=== PATIENT | male | born 1970 ===

== ENCOUNTER 2020-01-12 23:15 | Emergency (ER) | payer MEDICAID, SELFPAY ==
[2020-01-12 23:22] VITALS: BP 108/61; PULSE 66; RESP 16; TEMP 36.5; O2SAT 98; BMI 24.2
--- NOTE | 2020-01-12 23:57 | ED_ITS ---
HPI - General Adult General Chief complaint: Upper Respiratory Symptoms Stated complaint: SORETHROAT Time Seen by Provider: 01/12/20 23:50 Source: patient Mode of arrival: ambulatory Limitations: no limitations History of Present Illness HPI narrative: 49-year-old male presents with throat pain and difficulty swallowing. Was seen on 01/04/2020 at [facility] and was given a diagnosis of esophageal achalasia. He was advised to follow-up with the surgeon, however he was unable to make an appointment. He presents today because of pain and is asking for IV morphine. He does not report any chest pain or pressure, palpitations, shortness of breath, abdominal pain, abdominal distention, dysuria, hematuria, fevers and chills. Onset (ago): month(s) Radiation: non-radiation Severity: severe and similar to prior episodes Severity scale (1-10): 10 Quality: burning and aching Pain Consistency: constant Relieving factors: none Exacerbating factors: eating Related Data Home Medications Medication Instructions Recorded Confirmed albuterol sulfate 90 mcg/actuation 1 puff INHALATION QID 01/06/20 aerosol inhaler atenolol 25 mg tablet 25 mg PO DAILY 01/06/20 cholecalciferol (vitamin D3) 50 50 mcg PO DAILY 01/06/20 mcg (2,000 unit) capsule clonazepam 1 mg tablet 1 mg PO TID 01/06/20 diphenhydramine HCl 25 mg capsule 25 mg PO BEDTIME 01/06/20 lactulose 20 gram oral packet 20 g PO BID 01/06/20 metoclopramide HCl 10 mg tablet 10 mg PO QIDACHS 01/06/20 omeprazole 20 mg capsule,delayed 20 mg PO DAILY 01/06/20 release oxycodone 5 mg capsule 5 mg PO BID PRN 01/06/20 tamsulosin 0.4 mg capsule 0.4 mg PO DAILY 01/06/20 tizanidine 4 mg capsule 4 mg PO TID PRN 01/06/20 verapamil 40 mg tablet 40 mg PO TID 01/06/20 Previous Rx's Medication Instructions Recorded oxycodone 5 mg PO Q8H PRN #5 tab 01/13/20 Allergies Allergy/AdvReac Type Severity Reaction Status Date / Time trazodone [TRAZODONE] Allergy Severe FACIAL Unverified 12/22/19 15:19 SWELLING, swelling cat dander [CATS] Allergy Intermediate FACIAL Unverified 12/22/19 15:19 ITCHING doxepin [DOXEPIN] Allergy Intermediate WEIGHT Unverified 12/22/19 15:19 GAIN/LEG SWELLING Iodinated Contrast Media Allergy Intermediate ITCHING Unverified 12/22/19 15:19 [IV DYE, IODINE CONTAINING CONTRAST ] acetaminophen [Tylenol] Allergy Unknown stomach Verified 11/24/19 00:00 pain aspirin [ASPIRIN] Allergy Unknown UNKNOWN Unverified 12/22/19 15:19 nitroglycerin [NITROGLYCERIN] Allergy Unknown UNKNOWN Unverified 12/22/19 15:19 tramadol [TRAMADOL] Allergy Unknown UNKNOWN, Unverified 12/22/19 15:19 dry mouth ibuprofen [From MOTRIN] AdvReac Intermediate GI UPSET Unverified 12/22/19 15:19 quetiapine [From SEROQUEL] AdvReac Intermediate FACIAL Unverified 12/22/19 15:19 SWELLING Ibuprofen Allergy Unknown stomach Uncoded 11/24/19 00:00 ache IV contrast Allergy Unknown Uncoded 11/24/19 00:00 Motrin Allergy Unknown stomach Uncoded 11/24/19 00:00 pain Review of Systems Review of Systems: Constitutional: No Weight loss, No Fever, No Chills, No Night Sweats, No Fatigue, No Malaise ENT/Mouth: No Hearing loss, No Ear Pain, No Nasal Congestion, No Sinus Pain, No Hoarseness, No sore throat, No Rhinorrhea, No Swallowing Difficulty Eyes: No Eye Pain, No Swelling, No Redness, No Foreign Body, No Discharge, No Vision Changes Cardiovascular: No Chest Pain, No SOB, No Dyspnea on Exertion, No Orthopnea, No Edema, No Palpitations Respiratory: No Cough, No Sputum, No Wheezing, No Smoke Exposure, No Dyspnea Gastrointestinal: No Nausea, No Vomiting, No Diarrhea, No Constipation, No abdominal Pain, No Hematochezia, No Melena Genitourinary: no irregular bleeding, No Dysuria, No Urinary Frequency, No He maturia, No Urinary Incontinence, No Urgency, No Flank Pain, No Urinary Flow Changes, No Hesitancy Musculoskeletal: No joint pain, No Myalgias, No Joint Swelling Skin: No Skin Lesions, No rash Neuro: No Weakness, No Numbness, No Paresthesias, No Loss of Consciousness, No Dizziness, No Headache Psych: No Anxiety/Panic, No Depression, No SI/HI/AH/VH, No Social Issues, Heme/Lymph: No Bruising, No Bleeding,No Lymphadenopathy Endocrine: No Polyuria, No Polydipsia, No Temperature Intolerance [facility] Past Medical History Attestation statement: The following information was validated with the patient. Medical History (Updated 01/12/20 @ 23:56 by Lawanda Majano NP) Anxiety GERD (gastroesophageal reflux disease) Surgical History H/O umbilical hernia repair History of colonoscopy History of cystoscopy Family History Family History (Updated 01/06/20 @ 08:40 by SUSAN Cherry) Father HTN (hypertension) Diabetes Mother HTN (hypertension) Stroke Alzheimer disease Heart disease Social History Social History Alcohol intake: never Smoking Status: Never smoker Use of substances other than those prescribed or required for medical reasons: No Advance Directives: No Advance Directives Information Provided: No Physical Exam Vital Signs and I&O and Narrative: Vital Signs and I&O: Vital Signs Temp 97.7 F 01/12/20 23:22 Pulse 66 01/12/20 23:22 Resp 16 01/12/20 23:22 BP 108/61 01/12/20 23:22 Pulse Ox 98 01/12/20 23:22 Intake & Output 01/12/20 01/12/20 01/13/20 06:59 18:59 06:59 Weight 66.075 kg Body Mass Index 24.2 Appearance: Alert. Oriented X3. No acute distress. Eyes: Pupils equal, round and reactive to light. ENT: Pharynx normal. Neck: Normal inspection. Neck supple. CVS: Normal heart rate and rhythm. Pulses normal. Respiratory: No respiratory distress. Breath sounds normal. Abdomen: Soft and nontender. Skin: Skin warm and dry. Normal skin color. Normal skin turgor. Extremities: No lower extremity edema. No lower extremity edema. Neuro: Oriented X 3. No motor deficit. No sensory deficit. Course Course Course Narrative: 49-year-old male with history of esophageal achalasia presents with throat pain and difficulty swallowing. States that he ran out of his medication and cannot eat. He is asking for IV morphine. After investigation, patient states that he did not call the surgeon for an appointment, and that he ran out of his pain medications earlier than expected. We did offer p.o. oxycodone at this time, which he was able to swallow with a cup of water Without difficulty. patient did not cough, or have any adventitious lung sounds after drinking and taking medications We will discharge home with 7 tablets of oxycodone, he was strongly encouraged to follow-up with his surgeon, surgeon's name, phone number, and address was discussed with him by this BLOOD OR BLOOD BANK TECHNICIAN and RN. Upon discharge to home he states that he would like to torey ales and a sandwich, which the RN did give him. Patient verbalized understanding of and agrees to plan of care to discharge. Medical Decision Making Medical Records Medical records reviewed: Yes I reviewed the patient's medical records. Discharge Plan Discharge Clinical Impression: Achalasia of esophagus Patient Disposition: Home, Self-Care Instructions: Chronic Dysphagia (DC) Additional Instructions: please follow-up with your surgeon as suggested by [facility] on December 08 2019.y her name is Dr. Antonella Krause medical office [address] [facility] thoracic surgery [place] [address] telephone #[phone]. Thank you for choosing this emergency department for evaluation. Please follow-up with primary care physician as needed. Return to the emergency department for any new, concerning, or worsening symptoms. Prescriptions: New oxycodone 5 mg tablet 5 mg PO Q8H PRN (Reason: pain) Qty: 5 RF: 0 Referrals: Antonella Krause MD [Physician] - 2 days ( please call and make an appointment.) Interventions: ED Discharge Assessment Last Done: 01/13/20 00:05 Discharge Date/Time: 01/13/20 00:24
[2020-01-13] MEDS: oxyCODONE HCl Immed Release 5 MG TABLET PO (00:01)
--- NOTE | 2020-01-13 00:24 | PC.NURSE ---
pt given torey [place] and sandwich prior to d/c tolerating po well. pt also swallowing po meds as ordered with no issues prior to d/c
== END 2020-01-13 00:24 | disposition home or self-care (01) ==
PROVIDERS: Emergency Provider Emergency Medicine; PCP Internal Medicine
DX: K22.0 Achalasia of cardia (principal); K21.9 Gastro-esophageal reflux disease without esophagitis; Z79.899 Other long term (current) drug therapy
CPT/HCPCS: 99283; 99284

== ENCOUNTER 2020-01-19 04:51 | Emergency (ER) | payer MEDICAID, SELFPAY ==
[2020-01-19 05:03] VITALS: BP 115/72; PULSE 61; RESP 18; TEMP 36.8; O2SAT 100; BMI 52.8
--- NOTE | 2020-01-19 05:39 | XR_ITS ---
EXAMINATION: XR CHEST CLINICAL INFORMATION: Chest pain, cough COMPARISON: 12/22/2019 TECHNIQUE: Frontal view of the chest was obtained. FINDINGS: Lung volumes are symmetric. No focal consolidation is seen. No evidence of pneumothorax, pleural effusion, or pulmonary edema. The cardiomediastinal contour is unremarkable. No acute osseous findings are seen. IMPRESSION: No acute cardiopulmonary findings.
--- NOTE | 2020-01-19 05:39 | ECG_ITS ---
Test Reason : CHEST PAIN Blood Pressure : / mmHG Vent. Rate : 055 BPM Atrial Rate : 055 BPM P-R Int : 128 ms QRS Dur : 092 ms QT Int : 428 ms P-R-T Axes : 020 015 020 degrees QTc Int : 409 ms Sinus bradycardia Possible Early repolarization Nonspecific ST abnormality Abnormal ECG When compared with ECG of 11-NOV-2019 16:40, T wave amplitude has increased in Anterior leads Nonspecific ST abnormality is new Referred By: Meri Hoyos Electronically Signed By:ZOË WALTERS MD
--- NOTE | 2020-01-19 05:41 | ED.GENADULT ---
HPI - General Adult General Chief complaint: Nausea/Vomiting/Diarrhea Stated complaint: multiple complaints Time Seen by Provider: 01/19/20 05:33 Source: patient Mode of arrival: EMS Limitations: no limitations History of Present Illness HPI narrative: patient comes to emergency room complaining of 2 days of nausea, vomiting, diarrhea, dizziness, chest pain, anxiety. Patient states 2 days ago he went to [place] to visit his daughter, she had an upper respiratory infection and was coughing quite a bit. Patient states that he has been coughing as well. MD complaint: Multiple complaints Onset (ago): day(s) Related Data Home Medications Medication Instructions Recorded Confirmed albuterol sulfate 90 mcg/actuation 1 puff INHALATION QID 01/06/20 aerosol inhaler atenolol 25 mg tablet 25 mg PO DAILY 01/06/20 cholecalciferol (vitamin D3) 50 50 mcg PO DAILY 01/06/20 mcg (2,000 unit) capsule clonazepam 1 mg tablet 1 mg PO TID 01/06/20 diphenhydramine HCl 25 mg capsule 25 mg PO BEDTIME 01/06/20 lactulose 20 gram oral packet 20 g PO BID 01/06/20 metoclopramide HCl 10 mg tablet 10 mg PO QIDACHS 01/06/20 omeprazole 20 mg capsule,delayed 20 mg PO DAILY 01/06/20 release oxycodone 5 mg capsule 5 mg PO BID PRN 01/06/20 tamsulosin 0.4 mg capsule 0.4 mg PO DAILY 01/06/20 tizanidine 4 mg capsule 4 mg PO TID PRN 01/06/20 verapamil 40 mg tablet 40 mg PO TID 01/06/20 Previous Rx's Medication Instructions Recorded oxycodone 5 mg PO Q8H PRN #5 tab 01/13/20 Allergies Allergy/AdvReac Type Severity Reaction Status Date / Time trazodone [TRAZODONE] Allergy Severe FACIAL Unverified 12/22/19 15:19 SWELLING, swelling cat dander [CATS] Allergy Intermediate FACIAL Unverified 12/22/19 15:19 ITCHING doxepin [DOXEPIN] Allergy Intermediate WEIGHT Unverified 12/22/19 15:19 GAIN/LEG SWELLING Iodinated Contrast Media Allergy Intermediate ITCHING Unverified 12/22/19 15:19 [IV DYE, IODINE CONTAINING CONTRAST ] acetaminophen [Tylenol] Allergy Unknown stomach Verified 11/24/19 00:00 pain aspirin [ASPIRIN] Allergy Unknown UNKNOWN Unverified 12/22/19 15:19 nitroglycerin [NITROGLYCERIN] Allergy Unknown UNKNOWN Unverified 12/22/19 15:19 tramadol [TRAMADOL] Allergy Unknown UNKNOWN, Unverified 12/22/19 15:19 dry mouth ibuprofen [From MOTRIN] AdvReac Intermediate GI UPSET Unverified 12/22/19 15:19 quetiapine [From SEROQUEL] AdvReac Intermediate FACIAL Unverified 12/22/19 15:19 SWELLING Ibuprofen Allergy Unknown stomach Uncoded 11/24/19 00:00 ache IV contrast Allergy Unknown Uncoded 11/24/19 00:00 Motrin Allergy Unknown stomach Uncoded 11/24/19 00:00 pain Review of Systems Review of Systems: Constitutional : complaining of fatigue, malaise ENT/Mouth : No Hearing loss, No Ear Pain, No Nasal Congestion, No Sinus Pain, No Hoarseness, No sore throat, No Rhinorrhea, No Swallowing Difficulty Eyes: No Eye Pain, No Swelling, No Redness, No Foreign Body, No Discharge, No Vision Changes Cardiovascular : No Chest Pain, No SOB, No Dyspnea on Exertion, No Orthopnea, No Edema, No Palpitations Respiratory : coughing for 2 days, No Sputum, No Wheezing, No Smoke Exposure, No Dyspnea Gastrointestinal : complaining of nausea, vomiting, diarrhea, diffuse abdominal pain Genitourinary : no irregular bleeding, No Dysuria, No Urinary Frequency, No Hematuria, No Urinary Incontinence, No Urgency, No Flank Pain, No Urinary Flow Changes, No Hesitancy Musculoskeletal : No joint pain, generalized myalgias, No Joint Swelling Skin : No Skin Lesions, No rash Neuro : No Weakness, No Numbness, No Paresthesias, No Loss of Consciousness, No Dizziness, No Headache Psych : No Anxiety/Panic, No Depression, No SI/HI/AH/VH, No Social Issues, Heme/Lymph: No Bruising, No Bleeding,No Lymphadenopathy Endocrine : No Polyuria, No Polydipsia, No Temperature Intolerance PMF Past Medical History Medical History Anxiety GERD (gastroesophageal reflux disease) Surgical History H/O umbilical hernia repair History of colonoscopy History of cystoscopy Family History Family History Father HTN (hypertension) Diabetes Mother HTN (hypertension) Stroke Alzheimer disease Heart disease Social History Social History Alcohol intake: never Smoking Status: Smoker, status unknown Use of substances other than those prescribed or required for medical reasons: No Advance Directives: No Advance Directives Information Provided: No Physical Exam Vital Signs: Vital Signs: Vital Signs Temp Pulse Resp BP Pulse Ox 01/19/20 06:57 60 18 116/58 L 100 01/19/20 05:03 98.2 F 61 18 115/72 100 Body Mass Index 52.8 Appearance: Alert. Oriented X3. No acute distress. Eyes: Pupils equal, round and reactive to light. ENT: Pharynx normal. Neck: Normal inspection. Neck supple. No lymph nodes noted. No crepitus CVS: Normal heart rate and rhythm. Pulses normal. Normal S1 and S2 Respiratory: No respiratory distress. Breath sounds normal. No Wheezing. No rales Abdomen: Soft and nontender. No rigidity. No distention. good BS x4 Skin: Skin warm and dry. Normal skin color. Normal skin turgor. Extremities: No lower extremity edema. No lower extremity edema. No Lacerations. No Rash Neuro: Oriented X 3. No motor deficit. No sensory deficit. Moving all extermities. No slurred speech. Course Reevaluation(s) Reevaluation #1: Patient complaining of generalized pain. Patient was offered ibuprofen, patient was offered Tylenol, declined, for abdominal pain patient was offered a GI cocktail, patient declined, patient states that the only thing that helps is IV morphine and IV Ativan. Patient was offered p.o. Ativan, patient got upset because it is not IV. I discussed the labs with the patient, he was tested for COVID-19, all negative. Medical Decision Making MDM Narrative Medical decision making narrative: Patient likely has a viral illness, patient tested negative for COVID. Patient Instructed to follow-up with his primary care physician. Lab Data Result diagrams: 01/19/20 06:02 01/19/20 06:02 Labs: Lab Results 01/19/20 01/19/20 01/19/20 Range/Units 06:02 06:02 06:02 WBC 5.0 (4.8-10.8) X10*3/uL RBC 3.90 L (4.60-5.80) X10*6/uL Hgb 12.2 L (14.0-18.0) g/dl Hct 37.5 L (42-52) % MCV 96.2 (80-98) fL MCH 31.3 (27.0-33.0) pg MCHC 32.5 (31.0-36.0) g/dl RDW 12.6 (11.0-16.0) % Plt Count 194 (160-400) X10*3/uL MPV 10.4 (9.4-12.4) fL Immature Gran % (Auto) 0.0 (0.0-0.4) % Neut % (Auto) 61.2 (45-73) % Lymph % (Auto) 29.0 (20-40) % [place] % (Auto) 6.8 (2-11) % Eos % (Auto) 2.6 (0-4) % Baso % (Auto) 0.4 (0-2) % Lymph # (Auto) 1.4 (1.2-4.9) X10*3/uL [place] # (Auto) 0.3 (0.1-1.2) X10*3/uL Eos # (Auto) 0.1 (0.0-0.4) X10*3/uL Baso # (Auto) 0.0 (0.0-0.2) X10*3/uL Abs Immat Gran (auto) 0.00 (0.00-0.03) X10*3/uL Absolute Neuts (auto) 3.0 (2.0-8.3) X10*3/uL Absolute Nucleated RBC 0.000 (0.0-0.012) X10*3/uL Nucleated RBC % (auto) 0.0 (0.0-0.2) /100WBC Sodium 140 (135-145) mmol/L Potassium 3.8 (3.3-5.1) mmol/l Chloride 103 (96-108) mmol/L Carbon Dioxide 31 H (22-29) mmol/L Anion Gap 10 L (12-20) BUN 6 L (9-16) mg/dL Creatinine 0.79 (0.5-1.4) mg/dL Estim Creat Clear Calc 147.8 Estimated GFR > 60 Random Glucose 101 (60-115) mg/dL Calcium 8.9 (8.4-10.2) mg/dL Total Bilirubin 0.4 (0.0-1.0) mg/dL Direct Bilirubin < 0.2 (0.0-0.5) mg/dL AST 18 (5-37) U/L ALT 13 (0-40) U/L Alkaline Phosphatase 76 (39-117) U/L Troponin I High Sens (<3.5-35.0) ng/L Total Protein 6.6 (6.5-8.0) g/dL Albumin 4.1 (3.5-5.0) g/dL Lipase 4 L (8-78) U/L Coronavirus (PCR) NEGATIVE (Negative) 01/19/20 Range/Units 06:02 WBC (4.8-10.8) X10*3/uL RBC (4.60-5.80) X10*6/uL Hgb (14.0-18.0) g/dl Hct (42-52) % MCV (80-98) fL MCH (27.0-33.0) pg MCHC (31.0-36.0) g/dl RDW (11.0-16.0) % Plt Count (160-400) X10*3/uL MPV (9.4-12.4) fL Immature Gran % (Auto) (0.0-0.4) % Neut % (Auto) (45-73) % Lymph % (Auto) (20-40) % [place] % (Auto) (2-11) % Eos % (Auto) (0-4) % Baso % (Auto) (0-2) % Lymph # (Auto) (1.2-4.9) X10*3/uL [place] # (Auto) (0.1-1.2) X10*3/uL Eos # (Auto) (0.0-0.4) X10*3/uL Baso # (Auto) (0.0-0.2) X10*3/uL Abs Immat Gran (auto) (0.00-0.03) X10*3/uL Absolute Neuts (auto) (2.0-8.3) X10*3/uL Absolute Nucleated RBC (0.0-0.012) X10*3/uL Nucleated RBC % (auto) (0.0-0.2) /100WBC Sodium (135-145) mmol/L Potassium (3.3-5.1) mmol/l Chloride (96-108) mmol/L Carbon Dioxide (22-29) mmol/L Anion Gap (12-20) BUN (9-16) mg/dL Creatinine (0.5-1.4) mg/dL Estim Creat Clear Calc Estimated GFR Random Glucose (60-115) mg/dL Calcium (8.4-10.2) mg/dL Total Bilirubin (0.0-1.0) mg/dL Direct Bilirubin (0.0-0.5) mg/dL AST (5-37) U/L ALT (0-40) U/L Alkaline Phosphatase (39-117) U/L Troponin I High Sens < 3.5 (<3.5-35.0) ng/L Total Protein (6.5-8.0) g/dL Albumin (3.5-5.0) g/dL Lipase (8-78) U/L Coronavirus (PCR) (Negative) ECG Data Attestation: I personally reviewed and interpreted this ECG as follows: ( sinus rhythm, bradycardia, heart rate 85 D5, nonspecific [address] elevations V4 through V6, nonspecific T-wave inversion lead III) Discharge Plan Discharge Clinical Impression: Viral illness Patient Disposition: Home, Self-Care Instructions: Viral Syndrome (ED) Additional Instructions: Please follow-up with your primary care physician tomorrow. If you have any worsening or new symptoms, please return to the emergency room or call 911 Prescriptions: No Action oxycodone 5 mg tablet 5 mg PO Q8H PRN (Reason: pain) Qty: 5 RF: 0
[2020-01-19] MEDS: 0.9 % Sodium Chloride 1,000 ML 999 ML IVCONT (06:08)
[2020-01-19 06:09] LABS: MANUAL DIFF FLAG NO
[2020-01-19 06:11] LABS: Basophils Percent Auto 0.4 % (0-2); Eosinophils Absolute Auto 0.1 X10*3/uL (0.0-0.4); Eosinophils Percent Auto 2.6 % (0-4); Hematocrit 37.5 % (42-52); Hemoglobin 12.2 g/dl (14.0-18.0); Lymphocytes Absolute Auto 1.4 X10*3/uL (1.2-4.9); Mean Corpuscular HGB Conc 32.5 g/dl (31.0-36.0); Mean Corpuscular Hemoglobin 31.3 pg (27.0-33.0); Mean Corpuscular Volume 96.2 fL (80-98); Mean Platelet Volume 10.4 fL (9.4-12.4); Monocytes Absolute Auto 0.3 X10*3/uL (0.1-1.2); Monocytes Percent Auto 6.8 % (2-11); Neutrophils Percent Auto 61.2 % (45-73); Platelet Count 194 X10*3/uL (160-400); Red Cell Distribution Width 12.6 % (11.0-16.0)
[2020-01-19 06:42] LABS: Alanine Aminotransferase 13 U/L (0-40); Albumin Level 4.1 g/dL (3.5-5.0); Alkaline Phosphatase 76 U/L (39-117); Anion Gap 10 (12-20); Aspartate Amino Transferase 18 U/L (5-37); Bilirubin Direct < 0.2 mg/dL (0.0-0.5); Bilirubin Total 0.4 mg/dL (0.0-1.0); Blood Urea Nitrogen 6 mg/dL (9-16); Calcium 8.9 mg/dL (8.4-10.2); Carbon Dioxide 31 mmol/L (22-29); Chloride 103 mmol/L (96-108); Creatinine Clr Calc Pharmacy 147.8; Estimated Glomerular Filt Rate > 60; Glucose Random 101 mg/dL (60-115); Lipase 4 U/L (8-78); Potassium 3.8 mmol/l (3.3-5.1); Sodium 140 mmol/L (135-145); Total Protein 6.6 g/dL (6.5-8.0)
[2020-01-19 06:48] LABS: Troponin-I High Sensitivity < 3.5 ng/L (<3.5-35.0)
[2020-01-19 06:57] VITALS: BP 116/58; PULSE 60; RESP 18; O2SAT 100
[2020-01-19 07:12] LABS: SARS COV2 PCR INHOUSE NEGATIVE (Negative)
[2020-01-19] MEDS: LORazepam 1 MG TABLET PO (07:32)
== END 2020-01-19 08:00 | disposition home or self-care (01) ==
PROVIDERS: Emergency Provider Emergency Medicine
DX: B34.9 Viral infection, unspecified (principal); Z20.828 Contact with and (suspected) exposure to other viral communicable diseases
CPT/HCPCS: 36415; 71045; 80048; 80076; 83690; 84484; 85025; 87635; 93005; 96360; 99284

== ENCOUNTER → 2020-02-02 14:56 | Outpatient (BNVA) | payer MEDICAID, SELFPAY | PROVIDERS: PCP Internal Medicine; Referring Provider Internal Medicine; Visit Provider Urology | DX: R39.198 Other difficulties with micturition (principal); M24.9 Joint derangement, unspecified | CPT/HCPCS: 51798; 81002; 99212 ==

== ENCOUNTER 2020-02-14 12:31 | Emergency (ER) | payer MEDICAID, SELFPAY ==
[2020-02-14 12:36] VITALS: BP 155/103; PULSE 99; RESP 16; TEMP 36.6; O2SAT 98; BMI 22.4
--- NOTE | 2020-02-14 12:50 | ED_ITS ---
HPI - Chest Pain General Chief Complaint: Chest Pain Stated Complaint: CHEST PAIN Time Seen by Provider: 02/14/20 12:50 Source: patient Mode of arrival: ambulatory Limitations: no limitations History of Present Illness HPI narrative: chest pain for 2 days and weight loss. Patient states that he is nauseated all the time and vomiting the last 2 days MD complaint: chest pain Onset (ago): day(s) Pain location: left chest Quality: tightness Associated symptoms: nausea and vomiting Related Data Home Medications Medication Instructions Recorded Confirmed albuterol sulfate 90 mcg/actuation 1 puff INHALATION QID 01/06/20 02/02/20 aerosol inhaler atenolol 25 mg tablet 25 mg PO DAILY 01/06/20 02/02/20 cholecalciferol (vitamin D3) 50 50 mcg PO DAILY 01/06/20 02/02/20 mcg (2,000 unit) capsule clonazepam 1 mg tablet 1 mg PO TID 01/06/20 02/02/20 diphenhydramine HCl 25 mg capsule 25 mg PO BEDTIME 01/06/20 02/02/20 metoclopramide HCl 10 mg tablet 10 mg PO QIDACHS 01/06/20 02/02/20 omeprazole 20 mg capsule,delayed 20 mg PO DAILY 01/06/20 02/02/20 release oxycodone 5 mg capsule 5 mg PO BID PRN 01/06/20 02/02/20 tamsulosin 0.4 mg capsule 0.4 mg PO DAILY 01/06/20 02/02/20 tizanidine 4 mg capsule 4 mg PO TID PRN 01/06/20 02/02/20 verapamil 40 mg tablet 40 mg PO TID 01/06/20 02/02/20 Previous Rx's Medication Instructions Recorded oxycodone 5 mg PO Q8H PRN #5 tab 01/13/20 meloxicam 15 mg tablet 15 mg PO DAILY 30 Days #30 tab 02/02/20 lactulose 20 gram/30 mL oral 20 g PO DAILY 30 Days #900 ml 02/10/20 solution simethicone 125 mg chewable tablet 125 mg PO QID PRN 30 Days #120 tab 02/10/20 Allergies Allergy/AdvReac Type Severity Reaction Status Date / Time trazodone [TRAZODONE] Allergy Severe FACIAL Unverified 12/22/19 15:19 SWELLING, swelling cat dander [CATS] Allergy Intermediate FACIAL Unverified 12/22/19 15:19 ITCHING doxepin [DOXEPIN] Allergy Intermediate WEIGHT Unverified 12/22/19 15:19 GAIN/LEG SWELLING Iodinated Contrast Media Allergy Intermediate ITCHING Unverified 12/22/19 15:19 [IV DYE, IODINE CONTAINING CONTRAST ] acetaminophen [Tylenol] Allergy Unknown stomach Verified 11/24/19 00:00 pain aspirin [ASPIRIN] Allergy Unknown UNKNOWN Unverified 12/22/19 15:19 nitroglycerin [NITROGLYCERIN] Allergy Unknown UNKNOWN Unverified 12/22/19 15:19 tramadol [TRAMADOL] Allergy Unknown UNKNOWN, Unverified 12/22/19 15:19 dry mouth ibuprofen [From MOTRIN] AdvReac Intermediate GI UPSET Unverified 12/22/19 15:19 quetiapine [From SEROQUEL] AdvReac Intermediate FACIAL Unverified 12/22/19 15:19 SWELLING Ibuprofen Allergy Unknown stomach Uncoded 11/24/19 00:00 ache IV contrast Allergy Unknown Uncoded 11/24/19 00:00 Motrin Allergy Unknown stomach Uncoded 11/24/19 00:00 pain Review of Systems Constitutional: Constitutional: Reports no additional constitutional complaints Eyes: Eyes: Reports no additional eye complaints ENT: Denies dizziness Cardiovascular: Cardiovascular: Reports no additional cardiovascular complaints Respiratory: Respiratory: Reports as per HPI Gastrointestinal: Gastrointestinal: Reports no additional gastrointestinal complaints Musculoskeletal: Musculoskeletal: Reports no additional musculoskeletal complaints Integumentary/Breasts: Skin/Breast: Denies rash Neurologic: Reports system reviewed and no additional complaints, except as documented, Denies dizziness and Denies Sensory deficit (Neuro) Psychiatric: Psychiatric: Denies anxiety PMFSH Past Medical History Medical History Anxiety GERD (gastroesophageal reflux disease) Surgical History H/O umbilical hernia repair History of colonoscopy History of cystoscopy Family History Family History Father HTN (hypertension) Diabetes Mother HTN (hypertension) Stroke Alzheimer disease Heart disease Social History Social History Alcohol intake: current Alcohol intake frequency: 0-2 drinks per day Smoking Status: Smoker, status unknown Smoked in Last 30 Days: No Use of substances other than those prescribed or required for medical reasons: No Advance Directives: No Advance Directives Information Provided: No Physical Exam Vital Signs: Vital Signs: Last Vital Signs Temp 97.9 F 02/14/20 12:36 Pulse 99 02/14/20 12:36 Resp 16 02/14/20 12:36 BP 155/103 H 02/14/20 12:36 Pulse Ox 98 02/14/20 12:36 Body Mass Index 22.4 Const: Other: anxious General: healthy appearing Nutritional Appearance: average body habitus Orientation/consciousness: oriented to person and patient oriented x3 Limitations: no limitations HENMT: Head: Yes normal to inspection Ears: external ears normal General nose exam: Normal external nose present Mouth: Normal oral and palatal mucosa present and oropharynx normal Throat: Yes posterior oropharynx normal Eyes: General: appearance normal, both eyes and all related structures Neck: Other: supple Neck: Yes normal visual inspection Chest: Chest palpation & inspection: normal inspection of the chest Resp: Auscultation: clear to auscultation bilaterally Cardio: Jugular venous distension: no JVD Rate: regular rate Rhythm: regular rhythm Heart sounds: S1 normal heart sound present and S2 normal heart sound present GI: Inspection: Yes normal to inspection Palpation (GI): Soft to palpation, nontender and No hepatosplenomegaly present Auscultation: normal bowel sounds : General: Yes no CVA tenderness Back/Spine/Pelvis: Back: no CVA tenderness Skin: General skin exam: no rashes or lesions noted Neuro: General: oriented to person and patient oriented x3 Cranial nerves: Yes CN's II-XII intact bilaterally Motor exam (neuro): 5/5 motor strength present throughout Sensory Exam: No Sensory deficit (Neuro) Extrem: General: Yes normal to inspection Psych: Appearance: grossly normal MDM - Chest Pain MDM Narrative Medical decision making narrative: Patient with multiple complaints and atypical chest pain will dc home Differential Diagnosis Differential diagnosis: Likely atypical chest pain and chest pain Lab Data Result diagrams: 02/14/20 13:16 02/14/20 13:16 Labs: Lab Results 02/14/20 02/14/20 02/14/20 Range/Units 13:16 13:16 13:16 WBC 8.3 (4.8-10.8) X10*3/uL RBC 4.80 D (4.60-5.80) X10*6/uL Hgb 14.9 D (14.0-18.0) g/dl Hct 43.7 (42-52) % MCV 91.0 (80-98) fL MCH 31.0 (27.0-33.0) pg MCHC 34.1 (31.0-36.0) g/dl RDW 12.7 (11.0-16.0) % Plt Count 251 D (160-400) X10*3/uL MPV 9.3 L (9.4-12.4) fL Immature Gran % (Auto) 0.4 (0.0-0.4) % Neut % (Auto) 67.6 (45-73) % Lymph % (Auto) 27.9 (20-40) % [place] % (Auto) 3.5 (2-11) % Eos % (Auto) 0.2 (0-4) % Baso % (Auto) 0.4 (0-2) % Lymph # (Auto) 2.3 (1.2-4.9) X10*3/uL [place] # (Auto) 0.3 (0.1-1.2) X10*3/uL Eos # (Auto) 0.0 (0.0-0.4) X10*3/uL Baso # (Auto) 0.0 (0.0-0.2) X10*3/uL Abs Immat Gran (auto) 0.03 (0.00-0.03) X10*3/uL Absolute Neuts (auto) 5.6 (2.0-8.3) X10*3/uL Absolute Nucleated RBC 0.000 (0.0-0.012) X10*3/uL Nucleated RBC % (auto) 0.0 (0.0-0.2) /100WBC Sodium 140 (135-145) mmol/L Potassium 3.8 (3.3-5.1) mmol/l Chloride 99 (96-108) mmol/L Carbon Dioxide 29 (22-29) mmol/L Anion Gap 16 (12-20) BUN 5 L (9-16) mg/dL Creatinine 0.77 (0.5-1.4) mg/dL Estim Creat Clear Calc 101.1 Estimated GFR > 60 Random Glucose 112 (60-115) mg/dL Calcium 9.5 D (8.4-10.2) mg/dL Troponin I High Sens < 3.5 (<3.5-35.0) ng/L ECG Data ECG #1: Attestation: I personally reviewed and interpreted this ECG as follows: Interpretation: sinus rate 100, no st or twave changes Discharge Plan Discharge Clinical Impression: Atypical chest pain Patient Disposition: Home, Self-Care Instructions: Chest Pain (ED) Prescriptions: No Action lactulose 20 gram/30 mL solution 20 g PO DAILY 30 Days Qty: 900 RF: 3 simethicone [Gas Relief (simethicone)] 125 mg tablet,chewable 125 mg PO QID PRN (Reason: abdominal distention, gas) 30 Days Qty: 120 RF: 3 oxycodone 5 mg tablet 5 mg PO Q8H PRN (Reason: pain) Qty: 5 RF: 0 meloxicam [Mobic] 15 mg tablet 15 mg PO DAILY 30 Days Qty: 30 RF: 0 cholecalciferol (vitamin D3) [Vitamin D3] 50 mcg (2,000 unit) capsule 50 mcg PO DAILY RF: 0 tizanidine 4 mg capsule 4 mg PO TID PRNRF: 0 albuterol sulfate [ProAir HFA] 90 mcg/actuation HFA aerosol inhaler 1 puff inhalation QID RF: 0 oxycodone 5 mg capsule 5 mg PO BID PRNRF: 0 clonazepam [Klonopin] 1 mg tablet 1 mg PO TID RF: 0 diphenhydramine HCl [Banophen] 25 mg capsule 25 mg PO BEDTIME RF: 0 metoclopramide HCl 10 mg tablet 10 mg PO QIDACHS RF: 0 omeprazole 20 mg capsule,delayed release(DR/EC) 20 mg PO DAILY RF: 0 verapamil 40 mg tablet 40 mg PO TID RF: 0 atenolol 25 mg tablet 25 mg PO DAILY RF: 0 tamsulosin 0.4 mg capsule 0.4 mg PO DAILY RF: 0 Referrals: Patrick Ly MD [Primary Care Provider] - 2 days
--- NOTE | 2020-02-14 13:09 | ECG_ITS ---
Test Reason : CHEST PAIN Blood Pressure : / mmHG Vent. Rate : 103 BPM Atrial Rate : 103 BPM P-R Int : 126 ms QRS Dur : 074 ms QT Int : 334 ms P-R-T Axes : 031 021 052 degrees QTc Int : 437 ms Sinus tachycardia Otherwise normal ECG When compared with ECG of 19-JAN-2020 05:53, Vent. rate has increased BY 48 BPM Referred By: Keyshawn Aragon Electronically Signed By:ZOË WALTERS MD
--- NOTE | 2020-02-14 13:10 | XR_ITS ---
EXAMINATION: XR CHEST CLINICAL INFORMATION: Chest pain and weight loss. COMPARISON: 01/19/2020 chest radiographs. TECHNIQUE: 2 views of the chest were obtained. FINDINGS: No significant abnormality is noted involving the heart, lungs, mediastinum, bony thorax or soft tissues. There is no healed right posterior rib fracture without significant change. XR/XR chest 2V IMPRESSION: No acute cardiopulmonary process.
[2020-02-14 13:19] LABS: MANUAL DIFF FLAG NO
[2020-02-14] MEDS: ondansetron HCL 4 MG/2 ML VIAL IVPUSH (13:19)
[2020-02-14 13:23] LABS: Basophils Percent Auto 0.4 % (0-2); Eosinophils Percent Auto 0.2 % (0-4); Hematocrit 43.7 % (42-52); Hemoglobin 14.9 g/dl (14.0-18.0); Imm Gran Abs Auto 0.03 X10*3/uL (0.00-0.03); Imm Gran Pct Auto 0.4 % (0.0-0.4); Lymphocytes Absolute Auto 2.3 X10*3/uL (1.2-4.9); Lymphocytes Percent Auto 27.9 % (20-40); Mean Corpuscular HGB Conc 34.1 g/dl (31.0-36.0); Mean Platelet Volume 9.3 fL (9.4-12.4); Monocytes Absolute Auto 0.3 X10*3/uL (0.1-1.2); Monocytes Percent Auto 3.5 % (2-11); Neutrophils Absolute Auto 5.6 X10*3/uL (2.0-8.3); Neutrophils Percent Auto 67.6 % (45-73); Platelet Count 251 X10*3/uL (160-400); Red Cell Distribution Width 12.7 % (11.0-16.0); White Blood Count 8.3 X10*3/uL (4.8-10.8)
[2020-02-14 13:52] LABS: Anion Gap 16 (12-20); Blood Urea Nitrogen 5 mg/dL (9-16); Calcium 9.5 mg/dL (8.4-10.2); Carbon Dioxide 29 mmol/L (22-29); Chloride 99 mmol/L (96-108); Creatinine Clr Calc Pharmacy 101.1; Estimated Glomerular Filt Rate > 60; Glucose Random 112 mg/dL (60-115); Potassium 3.8 mmol/l (3.3-5.1); Sodium 140 mmol/L (135-145)
[2020-02-14] MEDS: 0.9 % Sodium Chloride 1,000 ML 999 ML IVCONT (13:52)
[2020-02-14 14:00] LABS: Troponin-I High Sensitivity < 3.5 ng/L (<3.5-35.0)
--- NOTE | 2020-02-14 15:44 | PC.NURSE ---
Pt called this nurse to his room. Pt stated he was not staying and asked for his IV to be taken out. This nurse instructed pt that we needed to leave the IV in and that I would ask the provider to come speak with him. pt became agitated and ripped IV out of his arm. Bandage Applied. Pt stated he can't stay any longer and walked out of ED.
== END 2020-02-14 16:46 | disposition home or self-care (01) ==
PROVIDERS: Emergency Provider Emergency Medicine; PCP Internal Medicine
DX: R07.9 Chest pain, unspecified (principal); R11.2 Nausea with vomiting, unspecified; Z79.899 Other long term (current) drug therapy
CPT/HCPCS: 36415; 71046; 80048; 84484; 85025; 93005; 96361; 96374; 99284; J2405

== ENCOUNTER 2020-02-14 20:46 | Inpatient (IN) | payer MEDICAID, OTHER, SELFPAY ==
[2020-02-14 20:48] VITALS: BP 149/84; BP 149/93; PULSE 113; PULSE 98; RESP 20; TEMP 37.6; O2SAT 100; O2SAT 99; BMI 23.1
--- NOTE | 2020-02-14 20:54 | ECG_ITS ---
Test Reason : CHEST PAIN Blood Pressure : / mmHG Vent. Rate : 087 BPM Atrial Rate : 087 BPM P-R Int : 112 ms QRS Dur : 076 ms QT Int : 374 ms P-R-T Axes : 008 010 035 degrees QTc Int : 450 ms Normal sinus rhythm Minimal voltage criteria for LVH, may be normal variant Borderline ECG When compared with ECG of 14-FEB-2020 12:39, No significant change was found Referred By: Generic ED Physician Electronically Signed By:ZOË WALTERS MD
--- NOTE | 2020-02-14 21:00 | XR_ITS ---
EXAMINATION: XR CHEST CLINICAL INFORMATION: Chest pain COMPARISON: Chest radiograph earlier today at 1:40 PM TECHNIQUE: Frontal view of the chest was obtained. FINDINGS: No significant abnormality is noted involving the heart, lungs, mediastinum, bony thorax or soft tissues. No interval change from the study earlier today. XR/XR chest 1V IMPRESSION: Unremarkable examination.
--- NOTE | 2020-02-14 21:11 | PC.NURSE ---
section [address] Hoyos due to patient leaving AMA earlier today and active threats to slit throat with a knife.
[2020-02-14] MEDS: LORazepam 2 MG/ML VIAL IV (21:14)
[2020-02-14] MEDS: ondansetron HCL 4 MG/2 ML VIAL IVPUSH (21:14)
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
[2020-02-14 21:21] LABS: MANUAL DIFF FLAG NO
[2020-02-14 21:22] VITALS: RESP 15
[2020-02-14] MEDS: Morphine Sulfate 2 MG/ML CARTRIDGE 1 MG IVPUSH (21:22)
[2020-02-14 21:23] LABS: Basophils Percent Auto 0.2 % (0-2); Hematocrit 43.9 % (42-52); Hemoglobin 14.9 g/dl (14.0-18.0); Imm Gran Abs Auto 0.04 X10*3/uL (0.00-0.03); Imm Gran Pct Auto 0.3 % (0.0-0.4); Lymphocytes Absolute Auto 2.3 X10*3/uL (1.2-4.9); Lymphocytes Percent Auto 18.8 % (20-40); Mean Corpuscular HGB Conc 33.9 g/dl (31.0-36.0); Mean Corpuscular Hemoglobin 30.8 pg (27.0-33.0); Mean Corpuscular Volume 90.7 fL (80-98); Mean Platelet Volume 9.3 fL (9.4-12.4); Monocytes Absolute Auto 0.4 X10*3/uL (0.1-1.2); Monocytes Percent Auto 3.3 % (2-11); Neutrophils Absolute Auto 9.3 X10*3/uL (2.0-8.3); Neutrophils Percent Auto 77.4 % (45-73); Platelet Count 263 X10*3/uL (160-400); Red Blood Count 4.84 X10*6/uL (4.60-5.80); Red Cell Distribution Width 12.8 % (11.0-16.0); White Blood Count 12.1 X10*3/uL (4.8-10.8)
[2020-02-14 21:48] LABS: Ethanol 88 mg/dL
[2020-02-14 21:55] LABS: Alanine Aminotransferase 19 U/L (0-40); Albumin Level 4.8 g/dL (3.5-5.0); Alkaline Phosphatase 97 U/L (39-117); Anion Gap 22 (12-20); Aspartate Amino Transferase 18 U/L (5-37); Bilirubin Direct 0.2 mg/dL (0.0-0.5); Bilirubin Total 0.6 mg/dL (0.0-1.0); Blood Urea Nitrogen 8 mg/dL (9-16); Calcium 9.6 mg/dL (8.4-10.2); Carbon Dioxide 26 mmol/L (22-29); Chloride 98 mmol/L (96-108); Creatinine Clr Calc Pharmacy 89.4; Estimated Glomerular Filt Rate > 60; Glucose Random 134 mg/dL (60-115); Lipase < 4 U/L (8-78); Potassium 3.7 mmol/l (3.3-5.1); Sodium 142 mmol/L (135-145)
[2020-02-14 21:56] LABS: Troponin-I High Sensitivity < 3.5 ng/L (<3.5-35.0)
[2020-02-14 22:00] VITALS: BP 149/93; PULSE 96; RESP 15; TEMP 37; O2SAT 99
[2020-02-14 22:03] VITALS: PULSE 95
--- NOTE | 2020-02-14 23:11 | PC.NURSE ---
[facility] called and faxed on patient. Patient's insurance is Medicare. Care team away of patient in ED. Patient held on Sec 12.
[2020-02-15] VITALS (7 sets, daily range): BP systolic 142–156; BP diastolic 91–110; PULSE 83–126; RESP 15–20; TEMP 36.8–37.1; O2SAT 95–97
[2020-02-15] MEDS: Prochlorperazine Edisylate 10 MG/2 ML VIAL IVPUSH (00:10)
[2020-02-15] MEDS: Morphine Sulfate 2 MG/ML CARTRIDGE 1 MG IVPUSH (00:10)
--- NOTE | 2020-02-15 04:46 | PC.NURSE ---
[facility] at bed side.
[2020-02-15 06:52] LABS: Glucose Urine UA NEG (NEG); Leukocyte Esterase Urine NEG (NEG); Nitrite Urine NEG (NEG); Specific Gravity - Urine >= 1.030 (1.005-1.025); Urine Blood 1+ (NEG); Urine Ketones NEG (NEG); Urine Protein TRACE MG/DL (NEG-TRACE)
[2020-02-15 06:54] LABS: Appearance Urine CLEAR; Color Urine YELLOW
[2020-02-15 07:01] LABS: Mucus Urine TRACE /LPF; Squamous Epithelial Cell Urine TRACE /LPF; WBC Urine 0 /HPF (0-4)
--- NOTE | 2020-02-15 07:08 | PC.NURSE ---
pharmacy called for med rec
[2020-02-15 07:39] LABS: Amphetamine Screen Urine Not Detected (Not Detect); Barbiturates, Urine Not Detected (Not Detect); Benzodiazepines Screen Urine Not Detected (Not Detect); Cannabinoid Screen Urine Not Detected (Not Detect); Cocaine Screen Urine POSITIVE (Not Detect); Opiate Screen Urine POSITIVE (Not Detect); Phencyclidine Screen Urine Not Detected (Not Detect)
--- NOTE | 2020-02-15 08:27 | PC.NURSE ---
reccomendation from [facility] from this morning was a revisit, counselor is on the way for reeval now
--- NOTE | 2020-02-15 11:44 | PC.NURSE ---
Report received. Pt currently resting in bed. No complaints at this time. Calm, cooperative. Continues to be a section 12 bed search.
--- NOTE | 2020-02-15 13:39 | PC.NURSE ---
Pt resting in bed at this time. No complaints. Calm and cooperative. Continues to be a section 12 bed search.
--- NOTE | 2020-02-15 16:53 | PC.NURSE ---
Pt resting in bed. Calm. No complaints at this time. Continues to be a section 12 bed search.
[2020-02-15] MEDS: Albuterol Sulfate 90 MCG 8 GM INHALER 1 PUFF INHALE ×2 (17:15→20:54)
--- NOTE | 2020-02-15 18:42 | PC.NURSE ---
Pt resting in bed, calm, no complaints at this time.
[2020-02-15] MEDS: diphenhydrAMINE HCL 25 MG TABLET PO (20:53)
[2020-02-15] MEDS: VerapamiL HCL 40 MG TABLET PO (20:53)
[2020-02-15] MEDS: Zolpidem Tartrate 5 MG TABLET 10 MG PO (20:53)
[2020-02-15] MEDS: clonazePAM 1 MG TABLET PO (20:53)
--- NOTE | 2020-02-15 21:00 | PC.NURSE ---
Patient in bed appears resting with TV on, compliant with HS PO medication, requested PRN Ambien, administered as ordered, VSS, denied distress at this time, will continue to monitor.
--- NOTE | 2020-02-15 23:27 | PC.NURSE ---
Patient in bed appears sleeping, no distress observed/reported, respiration +/=/non-labored bilaterally, will continue to monitor.
[2020-02-16] VITALS (7 sets, daily range): BP systolic 119–144; BP diastolic 62–100; PULSE 63–89; RESP 17–20; TEMP 37.1–37.2; O2SAT 98
--- NOTE | 2020-02-16 02:22 | PC.NURSE ---
Patient in bed appears sleeping, no distress observed/reported, respiration +/=/non-labored bilaterally, will continue to monitor.
--- NOTE | 2020-02-16 04:29 | PC.NURSE ---
Patient intermittently coughing and sneezing, provider notified/ordered rapid Covid test/obtained sample/sent to lab/pending result/patient compliant. Patient may be admitted to today. Patient denied distress at this time. Will continue to monitor.
[2020-02-16 05:09] LABS: Influenza A PCR NEGATIVE (Negative); Influenza B PCR NEGATIVE (Negative); Resp Syncy Virus RNA Qual PCR NEGATIVE (Negative); SARS COV2 PCR INHOUSE NEGATIVE (Negative)
--- NOTE | 2020-02-16 06:35 | PC.NURSE ---
Patient was up, washed his face, brushed his teeth, then head back to his room, currently lying in his bed, seems resting quietly, will continue to monitor.
--- NOTE | 2020-02-16 07:22 | PC.NURSE ---
Report received from KRISTY Paredes. Pt resting, resp unlabored.
[2020-02-16] MEDS: Tamsulosin HCL 0.4 MG CAPSULE PO (09:16)
[2020-02-16] MEDS: Cholecalciferol (Vitamin D3) 25 MCG TABLET 50 MCG PO (09:16)
[2020-02-16] MEDS: Omeprazole 20 MG CAPSULE.DR PO (09:16)
[2020-02-16] MEDS: clonazePAM 1 MG TABLET PO ×3 (09:16→20:08)
[2020-02-16] MEDS: atenoloL 25 MG TABLET PO (09:17)
[2020-02-16] MEDS: Albuterol Sulfate 90 MCG 8 GM INHALER 1 PUFF INHALE ×2 (09:21→20:09)
--- NOTE | 2020-02-16 10:25 | PC.NURSE ---
Nikita Beckman notified of current BP- verapamil held as ordered.
--- NOTE | 2020-02-16 13:10 | PC.NURSE ---
late entry; report given to ric lemus on m5. Care team in to transfer pt to m5- pt reporting chest pain but states he has had the pain since arrival. chito weinberg called- no further orders at this time. mariah larios on m5 called to update.
--- NOTE | 2020-02-16 13:14 | PC.NURSE ---
Care team in to transfer pt to %. pt aware, cooperative w/ transfer, no concerns reported. states good effect from zofran given.
--- NOTE | 2020-02-16 13:48 | MHC.CARE ---
care presented pt with a CV prior to escort to M5, and care team later escorted pt to M5 with security.
[2020-02-16] MEDS: Magnesium Hydrox/Alum Hydrox 30 ML ORAL.SUSP PO (16:36)
[2020-02-16] MEDS: Acetaminophen 325 MG TABLET 650 MG PO (16:38)
[2020-02-16] MEDS: VerapamiL HCL 40 MG TABLET PO ×2 (16:39→20:08)
[2020-02-16] MEDS: diphenhydrAMINE HCL 25 MG TABLET PO (20:08)
[2020-02-16] MEDS: Zolpidem Tartrate 5 MG TABLET 10 MG PO (20:14)
--- NOTE | 2020-02-16 21:04 | PC.ADMIT ---
pt is a 49 year old Cym[place] speaking male [place] [facility] [place] due to chest pain. He is alert and oriented. Covid - flu- Utox positive for cocaine and opiates. pt on a cv status and arrived approximately 1330. pt was referred for a crisis assessment after disclosing suicidal ideation with plan to jump in front of a car or cut himself with a knife. Pt reported that he wanted to choke himself during the admit. Pt report that he had SI, AH and reported generalized pain in his body. Pt is diagnosed with panic disorder and alcohol disorder, but denied being a drinker and reported never drinking. Pt reported poor sleep and appetite. Dr Wally Coleman called for orders and notified of admission. pt is on 15 mins safety checks. pt is pleasant and cooperative on admit. Pt had clear thoughts, stable mood. admission was done at pts bedside. start treatment plan and monitor for safety
[2020-02-17] MEDS: hydrOXYzine HCL 25 MG TABLET PO (03:29)
[2020-02-17 06:28] VITALS: BP 136/76; PULSE 71; RESP 16; TEMP 37.1; O2SAT 97
[2020-02-17] MEDS: Lactulose 20 GM/30 ML SOLUTION PO (09:12)
[2020-02-17 09:13] VITALS: BP 136/76; PULSE 71
[2020-02-17] MEDS: clonazePAM 1 MG TABLET PO ×3 (09:13→21:20)
[2020-02-17] MEDS: Tamsulosin HCL 0.4 MG CAPSULE PO (09:13)
[2020-02-17] MEDS: Omeprazole 20 MG CAPSULE.DR PO (09:13)
[2020-02-17] MEDS: Cholecalciferol (Vitamin D3) 25 MCG TABLET 50 MCG PO (09:13)
[2020-02-17] MEDS: atenoloL 25 MG TABLET PO (09:13)
[2020-02-17] MEDS: VerapamiL HCL 40 MG TABLET PO ×3 (09:13→21:19)
[2020-02-17 09:20] LABS: Estimated Average Glucose 108 mg/dL; Hemoglobin A1c % 5.4 %
[2020-02-17] MEDS: Naloxone HCl Nasal TAKE HOME 4 MG SPRAY NOSTRILALT (11:44)
[2020-02-17 14:13] VITALS: BP 124/73; PULSE 81
[2020-02-17] MEDS: Loperamide HCl 2 MG CAPSULE PO (14:14)
[2020-02-17] MEDS: NaPROXEN 250 MG TABLET PO (17:22)
--- NOTE | 2020-02-17 19:21 | P.HPPS_ITS ---
HPI Chief Complaint: psychosis Sources of Information: patient interviewed, chart reviewed and crisis/core team assessment reviewed HPI Narrative: 49 year old man who was admitted after being referred by [facility] crisis. He carries the diagnosis of major depression, severe, and substance abuse. This is one of many admissions to with the last one being in December 2019. He presented to the ER with physical complaints of abdominal pain, nausea and diarrhea. He also had a toxic screen positive for opiates and cocaine. He denies using the same. He was DC from [facility] on 02/10/20. .No acute abnormalities were found to explain his GI symptoms and he was medically cleared for admission. During the course of the medical evaluation he reported that he had SI. He stated that a relative, his nephew, recently of a drug OD, and he has been grieving his loss. He has been increasingly depressed and has had AH. He has been feeling guilty for his nephew's . Upon arrival to the unit he continued to have some GI issues, and SI. He reports that he found his previous medications helpful. He signed a CV. Past Psychiatric History: Multiple hospital stays. He has providers at [facility] Medical Evaluation Reviewed: Yes No acute illness found during medical clearance [facility] Medical History Anxiety GERD (gastroesophageal reflux disease) Surgical History H/O umbilical hernia repair History of colonoscopy History of cystoscopy Family History: Unknown Social History: Lives alone. On SSDI Has an adult daughter and two grandchildren Estranged from some family members Substance History: Recent DC from [facility] Denies active use despite toxic screen Trauma History: Recent loss of his nephew Diagnostics Vital Signs (24Hr): Vital Signs - 24 hr 02/16/20 20:08 02/17/20 06:28 02/17/20 09:13 Temperature 98.7 F Pulse Rate 77 71 71 Respiratory Rate 16 Blood Pressure 132/81 136/76 136/76 Pulse Oximetry 97 02/17/20 14:13 Temperature Pulse Rate 81 Respiratory Rate Blood Pressure 124/73 Pulse Oximetry Body Mass Index 23.1 Labs Results: 02/14/20 21:16 02/14/20 21:16 Labs: Laboratory Results - last 48 hr 02/16/20 02/17/20 04:26 04:59 Estimat Average Glucose 108 Hemoglobin A1c % 5.4 Coronavirus (PCR) NEGATIVE Influenza Type A (PCR) NEGATIVE Influenza Type B (PCR) NEGATIVE RSV RNA Qual (PCR) NEGATIVE Imaging Radiology Impressions: ITS Impressions Chest X-Ray 02/14/20 21:00 IMPRESSION: Unremarkable examination. Meds/Allergies Meds Home Medications Acetaminophen (Acetaminophen 325 Mg Tablet) 650 mg PO Q6H PRN PRN Reason: Headache/Pain Mild Scale (1-3) Last Admin: 02/16/20 16:38 Dose: 650 mg Documented by: Al Hydroxide/Mg Hydroxide (Magnesium Hydrox/Alum Hydrox 30 Ml Oral.Susp) 30 ml PO Q6H PRN PRN Reason: Heartburn/Nausea Last Admin: 02/16/20 16:36 Dose: 30 ml Documented by: Albuterol Sulfate (Albuterol Sulfate 90 Mcg 8 Gm Inhaler) 1 puff INHALE QID PRN PRN Reason: Shortness of Breath/Wheezing Atenolol (Atenolol 25 Mg Tablet) 25 mg PO DAILY [facility]; Protocol Last Admin: 02/17/20 09:13 Dose: 25 mg Documented by: Clonazepam (Clonazepam 1 Mg Tablet) 1 mg PO TID [facility] Last Admin: 02/17/20 14:13 Dose: 1 mg Documented by: Diphenhydramine HCl (Diphenhydramine Hcl 25 Mg Tablet) 25 mg PO BEDTIME [facility] Last Admin: 02/16/20 20:08 Dose: 25 mg Documented by: Hydroxyzine HCl (Hydroxyzine Hcl 25 Mg Tablet) 25 mg PO BEDTIME PRN PRN Reason: Anxiety Last Admin: 02/17/20 03:29 Dose: 25 mg Documented by: Lactulose (Lactulose 20 Gm/30 Ml Solution) 20 gm PO DAILY [facility] Last Admin: 02/17/20 09:12 Dose: 20 gm Documented by: Loperamide HCl (Loperamide Hcl 2 Mg Capsule) 2 mg PO Q4H PRN PRN Reason: Diarrhea Last Admin: 02/17/20 14:14 Dose: 2 mg Documented by: Magnesium Hydroxide (Milk Of Magnesia 30 Ml Oral.Susp) 30 ml PO DAILY PRN PRN Reason: Constipation Naproxen (Naproxen 250 Mg Tablet) 250 mg PO BIDWM [facility] Last Admin: 11/13/20 17:22 Dose: 250 mg Documented by: Non-Formulary Medication (Simethicone [Gas Relief (Simethicone)]) 125 mg PO QID PRN PRN Reason: abdominal distention, gas Non-Formulary Medication (Tizanidine) 4 mg PO TID PRN PRN Reason: Muscle Pain Omeprazole (Omeprazole 20 Mg Capsule.Dr) 20 mg PO DAILY [facility] Last Admin: 02/17/20 09:13 Dose: 20 mg Documented by: Ondansetron HCl (Ondansetron Odt 4 Mg Tab.Rapdis) 4 mg TRANSLINGU Q6H PRN PRN Reason: Nausea Last Admin: 02/17/20 11:25 Dose: 4 mg Documented by: Tamsulosin HCl (Tamsulosin Hcl 0.4 Mg Capsule) 0.4 mg PO DAILY [facility] Last Admin: 02/17/20 09:13 Dose: 0.4 mg Documented by: Trazodone HCl (Trazodone Hcl 50 Mg Tablet) 50 mg PO BEDTIME PRN PRN Reason: Insomnia Verapamil HCl (Verapamil Hcl 40 Mg Tablet) 40 mg PO TID [facility]; Protocol Last Admin: 02/17/20 14:13 Dose: 40 mg Documented by: Vitamin D (Cholecalciferol (Vitamin D3) 25 Mcg Tablet) 50 mcg PO DAILY [facility] Last Admin: 02/17/20 09:13 Dose: 50 mcg Documented by: Zolpidem Tartrate (Zolpidem Tartrate 5 Mg Tablet) 10 mg PO BEDTIME PRN PRN Reason: Insomnia Last Admin: 02/16/20 20:14 Dose: 10 mg Documented by: Allergies Allergies Allergy/AdvReac Type Severity Reaction Status Date / Time trazodone [TRAZODONE] Allergy Severe FACIAL Verified 02/14/20 21:12 SWELLING, swelling cat dander [CATS] Allergy Intermediate FACIAL Verified 02/14/20 21:12 ITCHING doxepin [DOXEPIN] Allergy Intermediate WEIGHT Verified 02/14/20 21:12 GAIN/LEG SWELLING Iodinated Contrast Media Allergy Intermediate ITCHING Verified 02/14/20 21:12 [IV DYE, IODINE CONTAINING CONTRAST ] acetaminophen [Tylenol] Allergy Unknown stomach Verified 02/14/20 21:12 pain nitroglycerin [NITROGLYCERIN] Allergy Unknown UNKNOWN Verified 02/14/20 21:12 tramadol [TRAMADOL] Allergy Unknown UNKNOWN, Verified 02/14/20 21:12 dry mouth ibuprofen [From MOTRIN] AdvReac Intermediate GI UPSET Verified 02/14/20 21:12 quetiapine [From SEROQUEL] AdvReac Intermediate FACIAL Verified 02/14/20 21:12 SWELLING aspirin [ASPIRIN] AdvReac Mild Stomach Verified 02/17/20 10:36 Upset Ibuprofen Allergy Unknown stomach Uncoded 11/24/19 00:00 ache IV contrast Allergy Unknown Unknown Uncoded 02/14/20 21:12 Motrin Allergy Unknown stomach Uncoded 11/24/19 00:00 pain Mental Status Exam Mental Status Exam Patient Appearance: Fatigued Patient Orientation: Person, Place, Time and Situation Level of Consciousness: Awake Patient Behavior: Dependent, Isolative and Poor Eye Contact Mood Description: Flat and Sad Affect Description: Flat and Apprehensive Patient Cognition Impaired: No Ability to Follow Directions: Good Speech Pattern: Clear and Appropriate Memory Description: Intact Hallucinations: Auditory Delusions: Not Present Thought Process: Rumination Thought Content: positive for Circumstantial, positive for Perseveration, positive for Hypochondriasis, negative for Suicidal Ideation and negative for Homicidal Ideation Depressive Symptoms: Hopelessness and Feelings of Guilt Judgement: Poor Assessment & Plan Assessment & Plan (1) Major depressive disorder, recurrent severe without psychotic features: Status: Acute Code(s): F33.2 - Major depressive disorder, recurrent severe without psychotic features Assessment and Plan: Resume home medications Collect collateral history ELS 7 days Patient educated on: diagnosis, medication risk/benefits and substance abuse Informed Consent: further education needed Reason for continued inpatient stay Substantial Risk for: inability to function and rapid decompensation
[2020-02-17 21:15] VITALS: BP 104/58; PULSE 61; TEMP 37.1
[2020-02-17 21:19] VITALS: BP 104/58; PULSE 61
[2020-02-17] MEDS: diphenhydrAMINE HCL 25 MG TABLET PO (21:19)
[2020-02-17] MEDS: Zolpidem Tartrate 5 MG TABLET 10 MG PO (21:26)
[2020-02-18] MEDS: hydrOXYzine HCL 25 MG TABLET PO (02:41)
[2020-02-18 05:10] VITALS: BP 120/77; PULSE 74; RESP 18; TEMP 36.7
[2020-02-18 08:59] VITALS: BP 120/77; PULSE 74
[2020-02-18] MEDS: VerapamiL HCL 40 MG TABLET PO ×3 (08:59→20:03)
[2020-02-18] MEDS: atenoloL 25 MG TABLET PO (08:59)
[2020-02-18] MEDS: Cholecalciferol (Vitamin D3) 25 MCG TABLET 50 MCG PO (09:00)
[2020-02-18] MEDS: NaPROXEN 250 MG TABLET PO ×2 (09:00→17:59)
[2020-02-18] MEDS: Tamsulosin HCL 0.4 MG CAPSULE PO (09:00)
[2020-02-18] MEDS: clonazePAM 1 MG TABLET PO ×3 (09:00→20:05)
[2020-02-18] MEDS: Omeprazole 20 MG CAPSULE.DR PO (09:00)
--- NOTE | 2020-02-18 11:55 | HO.PSYCHPN ---
Subjective Subjective Reason For Visit: psychosis Review of Systems Gastrointestinal: Reports abdominal pain (reports intermittent discomfort, cramps ) Comments: eating well despite GI complaints Comments: WBC high 02/15 Mental Status Exam Mental Status Exam Patient Appearance: Fatigued Patient Orientation: Person, Place, Time and Situation Level of Consciousness: Awake Patient Behavior: Dependent, Isolative and Poor Eye Contact Mood Description: Flat and Sad Affect Description: Flat and Apprehensive Patient Cognition Impaired: No Ability to Follow Directions: Good Speech Pattern: Clear and Appropriate Memory Description: Intact Diagnostics Vital Signs (24Hr): Vital Signs - 24 hr 02/17/20 14:13 02/17/20 21:15 02/17/20 21:19 Temperature 98.8 F Pulse Rate 81 61 61 Respiratory Rate Blood Pressure 124/73 104/58 L 104/58 L 02/18/20 05:10 02/18/20 08:59 Temperature 98.0 F Pulse Rate 74 74 Respiratory Rate 18 Blood Pressure 120/77 120/77 Body Mass Index 23.1 Labs Results: 02/14/20 21:16 02/14/20 21:16 Labs: Laboratory Results - last 48 hr 02/17/20 04:59 Estimat Average Glucose 108 Hemoglobin A1c % 5.4 Imaging Radiology Impressions: ITS Impressions Chest X-Ray 02/14/20 21:00 IMPRESSION: Unremarkable examination. Medications Medications Current Medications Generic Name Dose Route Start Last Admin Trade Name Freq PRN Reason Stop Dose Admin Acetaminophen 650 mg 02/16/20 15:07 02/16/20 16:38 Acetaminophen 325 Mg Tablet PO 650 mg Q6H PRN Administration Headache/Pain Mild Scale (1-3) Al Hydroxide/Mg Hydroxide 30 ml 02/16/20 15:07 02/16/20 16:36 Magnesium Hydrox/Alum Hydrox 30 Ml Oral.Susp PO 30 ml Q6H PRN Administration Heartburn/Nausea Albuterol Sulfate 1 puff 02/17/20 09:38 Albuterol Sulfate 90 Mcg 8 Gm Inhaler INHALE QID PRN Shortness of Breath/Wheezing Atenolol 25 mg 02/16/20 09:00 02/18/20 08:59 Atenolol 25 Mg Tablet PO 25 mg DAILY JAMES Administration Protocol Clonazepam 1 mg 02/15/20 21:00 02/18/20 09:00 Clonazepam 1 Mg Tablet PO 1 mg TID JAMES Administration Diphenhydramine HCl 25 mg 02/15/20 21:00 02/17/20 21:19 Diphenhydramine Hcl 25 Mg Tablet PO 25 mg BEDTIME JAMES Administration Hydroxyzine HCl 25 mg 02/16/20 15:07 02/18/20 02:41 Hydroxyzine Hcl 25 Mg Tablet PO 25 mg BEDTIME PRN Administration Anxiety Lactulose 20 gm 02/16/20 09:00 02/18/20 09:46 Lactulose 20 Gm/30 Ml Solution PO Not Given DAILY JAMES Loperamide HCl 2 mg 02/17/20 12:35 02/17/20 14:14 Loperamide Hcl 2 Mg Capsule PO 2 mg Q4H PRN Administration Diarrhea Magnesium Hydroxide 30 ml 02/16/20 15:07 Milk Of Magnesia 30 Ml Oral.Susp PO DAILY PRN Constipation Naproxen 250 mg 02/17/20 17:00 02/18/20 09:00 Naproxen 250 Mg Tablet PO 250 mg BIDWM JAMES Administration Non-Formulary Medication 125 mg 02/15/20 16:31 Simethicone [Gas Relief (Simethicone)] PO QID PRN abdominal distention, gas Non-Formulary Medication 4 mg 02/15/20 16:31 Tizanidine PO TID PRN Muscle Pain Omeprazole 20 mg 02/16/20 09:00 02/18/20 09:00 Omeprazole 20 Mg Capsule.Dr PO 20 mg DAILY [facility] Administration Ondansetron HCl 4 mg 02/17/20 10:01 02/18/20 09:19 Ondansetron Odt 4 Mg Tab.Rapdis TRANSLINGU 4 mg Q6H PRN Administration Nausea Tamsulosin HCl 0.4 mg 02/16/20 09:00 02/18/20 09:00 Tamsulosin Hcl 0.4 Mg Capsule PO 0.4 mg DAILY [facility] Administration Verapamil HCl 40 mg 02/15/20 21:00 02/18/20 08:59 Verapamil Hcl 40 Mg Tablet PO 40 mg TID [facility]AMES Administration Protocol Vitamin D 50 mcg 02/16/20 09:00 02/18/20 09:00 Cholecalciferol (Vitamin D3) 25 Mcg Tablet PO 50 mcg DAILY [facility] Administration Zolpidem Tartrate 10 mg 02/15/20 16:31 02/17/20 21:26 Zolpidem Tartrate 5 Mg Tablet PO 10 mg BEDTIME PRN Administration Insomnia Allergies Allergies Allergy/AdvReac Type Severity Reaction Status Date / Time trazodone [TRAZODONE] Allergy Severe FACIAL Verified 02/14/20 21:12 SWELLING, swelling cat dander [CATS] Allergy Intermediate FACIAL Verified 02/14/20 21:12 ITCHING doxepin [DOXEPIN] Allergy Intermediate WEIGHT Verified 02/14/20 21:12 GAIN/LEG SWELLING Iodinated Contrast Media Allergy Intermediate ITCHING Verified 02/14/20 21:12 [IV DYE, IODINE CONTAINING CONTRAST ] acetaminophen [Tylenol] Allergy Unknown stomach Verified 02/14/20 21:12 pain nitroglycerin [NITROGLYCERIN] Allergy Unknown UNKNOWN Verified 02/14/20 21:12 tramadol [TRAMADOL] Allergy Unknown UNKNOWN, Verified 02/14/20 21:12 dry mouth ibuprofen [From MOTRIN] AdvReac Intermediate GI UPSET Verified 02/14/20 21:12 quetiapine [From SEROQUEL] AdvReac Intermediate FACIAL Verified 02/14/20 21:12 SWELLING aspirin [ASPIRIN] AdvReac Mild Stomach Verified 02/17/20 10:36 Upset Ibuprofen Allergy Unknown stomach Uncoded 11/24/19 00:00 ache IV contrast Allergy Unknown Unknown Uncoded 02/14/20 21:12 Motrin Allergy Unknown stomach Uncoded 11/24/19 00:00 pain Assessment & Plan Assessment & Plan (1) Major depressive disorder, recurrent severe without psychotic features: Status: Acute Code(s): F33.2 - Major depressive disorder, recurrent severe without psychotic features Assessment and Plan: continue medications recheck CBC and CMP Collect collateral history ELS 7 days Greater than 50% of the session was spent on counseling and/or coordination of care
[2020-02-18 14:44] VITALS: BP 123/65; PULSE 70
[2020-02-18 19:10] VITALS: BP 118/63; PULSE 66; TEMP 36.7
[2020-02-18 20:03] VITALS: BP 118/63; PULSE 66
[2020-02-18] MEDS: diphenhydrAMINE HCL 25 MG TABLET PO (20:03)
[2020-02-18] MEDS: Zolpidem Tartrate 5 MG TABLET 10 MG PO (20:05)
[2020-02-18] MEDS: Acetaminophen 325 MG TABLET 650 MG PO (20:27)
[2020-02-18 23:53] VITALS: BMI 23.8
[2020-02-19] MEDS: hydrOXYzine HCL 25 MG TABLET PO (01:02)
[2020-02-19 06:20] VITALS: BP 113/62; PULSE 61; RESP 16; TEMP 36.7; O2SAT 100
[2020-02-19 07:23] LABS: MANUAL DIFF FLAG NO
[2020-02-19 08:08] LABS: Basophils Percent Auto 0.2 % (0-2); Eosinophils Absolute Auto 0.2 X10*3/uL (0.0-0.4); Hematocrit 38.5 % (42-52); Hemoglobin 12.7 g/dl (14.0-18.0); Imm Gran Abs Auto 0.02 X10*3/uL (0.00-0.03); Imm Gran Pct Auto 0.2 % (0.0-0.4); Lymphocytes Absolute Auto 2.2 X10*3/uL (1.2-4.9); Lymphocytes Percent Auto 25.8 % (20-40); Mean Corpuscular Hemoglobin 30.8 pg (27.0-33.0); Mean Corpuscular Volume 93.4 fL (80-98); Mean Platelet Volume 9.9 fL (9.4-12.4); Monocytes Absolute Auto 0.5 X10*3/uL (0.1-1.2); Monocytes Percent Auto 5.8 % (2-11); Neutrophils Absolute Auto 5.6 X10*3/uL (2.0-8.3); Platelet Count 198 X10*3/uL (160-400); Red Blood Count 4.12 X10*6/uL (4.60-5.80); White Blood Count 8.5 X10*3/uL (4.8-10.8)
[2020-02-19] MEDS: Cholecalciferol (Vitamin D3) 25 MCG TABLET 50 MCG PO (08:30)
[2020-02-19] MEDS: Tamsulosin HCL 0.4 MG CAPSULE PO (08:30)
[2020-02-19] MEDS: clonazePAM 1 MG TABLET PO ×3 (08:30→20:17)
[2020-02-19] MEDS: Lactulose 20 GM/30 ML SOLUTION PO (08:30)
[2020-02-19 08:31] VITALS: BP 113/62; PULSE 61
[2020-02-19] MEDS: atenoloL 25 MG TABLET PO (08:31)
[2020-02-19] MEDS: VerapamiL HCL 40 MG TABLET PO ×3 (08:31→20:17)
[2020-02-19] MEDS: NaPROXEN 250 MG TABLET PO ×2 (08:31→17:08)
[2020-02-19] MEDS: Omeprazole 20 MG CAPSULE.DR PO (08:31)
[2020-02-19 08:32] LABS: Alanine Aminotransferase 14 U/L (0-40); Albumin Level 3.9 g/dL (3.5-5.0); Alkaline Phosphatase 62 U/L (39-117); Anion Gap 10 (12-20); Aspartate Amino Transferase 14 U/L (5-37); Bilirubin Total 0.3 mg/dL (0.0-1.0); Blood Urea Nitrogen 18 mg/dL (9-16); Calcium 8.8 mg/dL (8.4-10.2); Carbon Dioxide 33 mmol/L (22-29); Chloride 102 mmol/L (96-108); Creatinine Clr Calc Pharmacy 89.4; Estimated Glomerular Filt Rate > 60; Glucose Fasting 108 mg/dL (60-99); Potassium 4.9 mmol/l (3.3-5.1); Sodium 140 mmol/L (135-145); Total Protein 6.4 g/dL (6.5-8.0)
[2020-02-19] MEDS: Loperamide HCl 2 MG CAPSULE PO ×2 (10:11→14:31)
--- NOTE | 2020-02-19 12:07 | HO.PSYCHPN ---
Subjective Subjective Date of Service: 02/19/20 Reason For Visit: psychosis Subjective Notes: Conditional Voluntary Interim History: pt reports GI upset and diarrhea although vague about details and when asked about it states his back hurts from disc surgery in past and states he needs pain meds other than tylenol; he declines ibuprofen and lidocaine patch. H& H low WBC return to normal; no fever; eating and drinking fluids normally; denies problem with urination. Encouraged to use immodium Medication Compliance: Yes Side effects from medications: No Attending Groups: Intermittent Review of Systems Gastrointestinal: Reports loose stools Musculoskeletal: Reports back pain (pt reports chronic ) Mental Status Exam Mental Status Exam Patient Appearance: Fatigued Patient Orientation: Person, Place, Time and Situation Level of Consciousness: Awake Patient Behavior: Dependent, Isolative and Poor Eye Contact Mood Description: Flat and Sad Affect Description: Flat and Apprehensive Patient Cognition Impaired: No Ability to Follow Directions: Good Speech Pattern: Clear and Appropriate Memory Description: Intact Diagnostics Vital Signs (24Hr): Vital Signs - 24 hr 02/18/20 14:44 02/18/20 19:10 02/18/20 20:03 Temperature 98.1 F Pulse Rate 70 66 66 Respiratory Rate Blood Pressure 123/65 118/63 118/63 Pulse Oximetry 02/19/20 06:20 02/19/20 08:31 Temperature 98.1 F Pulse Rate 61 61 Respiratory Rate 16 Blood Pressure 113/62 113/62 Pulse Oximetry 100 Body Mass Index 23.8 Labs Results: 02/19/20 07:10 02/19/20 07:10 Labs: Laboratory Results - last 48 hr 02/19/20 02/19/20 07:10 07:10 WBC 8.5 RBC 4.12 L Hgb 12.7 L Hct 38.5 L MCV 93.4 MCH 30.8 MCHC 33.0 RDW 12.0 Plt Count 198 MPV 9.9 Immature Gran % (Auto) 0.2 Neut % (Auto) 66.0 Lymph % (Auto) 25.8 Whitman % (Auto) 5.8 Eos % (Auto) 2.0 Baso % (Auto) 0.2 Lymph # (Auto) 2.2 Whitman # (Auto) 0.5 Eos # (Auto) 0.2 Baso # (Auto) 0.0 Abs Immat Gran (auto) 0.02 Absolute Neuts (auto) 5.6 Absolute Nucleated RBC 0.000 Nucleated RBC % (auto) 0.0 Sodium 140 Potassium 4.9 D Chloride 102 Carbon Dioxide 33 H Anion Gap 10 L BUN 18 H D Creatinine 0.85 Estim Creat Clear Calc 89.4 Estimated GFR > 60 Fasting Glucose 108 H Calcium 8.8 D Total Bilirubin 0.3 AST 14 ALT 14 Alkaline Phosphatase 62 D Total Protein 6.4 L Albumin 3.9 Imaging Radiology Impressions: ITS Impressions Chest X-Ray 02/14/20 21:00 IMPRESSION: Unremarkable examination. Medications Medications Current Medications Generic Name Dose Route Start Last Admin Trade Name Freq PRN Reason Stop Dose Admin Acetaminophen 650 mg 02/16/20 15:07 02/18/20 20:27 Acetaminophen 325 Mg Tablet PO 650 mg Q6H PRN Administration Headache/Pain Mild Scale (1-3) Al Hydroxide/Mg Hydroxide 30 ml 02/16/20 15:07 02/16/20 16:36 Magnesium Hydrox/Alum Hydrox 30 Ml Oral.Susp PO 30 ml Q6H PRN Administration Heartburn/Nausea Albuterol Sulfate 1 puff 02/17/20 09:38 Albuterol Sulfate 90 Mcg 8 Gm Inhaler INHALE QID PRN Shortness of Breath/Wheezing Atenolol 25 mg 02/16/20 09:00 02/19/20 08:31 Atenolol 25 Mg Tablet PO 25 mg DAILY JAMES Administration Protocol Clonazepam 1 mg 02/15/20 21:00 02/19/20 08:30 Clonazepam 1 Mg Tablet PO 1 mg TID JAMES Administration Diphenhydramine HCl 25 mg 02/15/20 21:00 02/18/20 20:03 Diphenhydramine Hcl 25 Mg Tablet PO 25 mg BEDTIME JAMES Administration Hydroxyzine HCl 25 mg 02/16/20 15:07 02/19/20 01:02 Hydroxyzine Hcl 25 Mg Tablet PO 25 mg BEDTIME PRN Administration Anxiety Lactulose 20 gm 02/16/20 09:00 02/19/20 08:30 Lactulose 20 Gm/30 Ml Solution PO 20 gm DAILY JAMES Administration Loperamide HCl 2 mg 02/17/20 12:35 02/19/20 10:11 Loperamide Hcl 2 Mg Capsule PO 2 mg Q4H PRN Administration Diarrhea Magnesium Hydroxide 30 ml 02/16/20 15:07 Milk Of Magnesia 30 Ml Oral.Susp PO DAILY PRN Constipation Naproxen 250 mg 02/17/20 17:00 02/19/20 08:31 Naproxen 250 Mg Tablet PO 250 mg BIDWM JAMES Administration Non-Formulary Medication 125 mg 02/15/20 16:31 Simethicone [Gas Relief (Simethicone)] PO QID PRN abdominal distention, gas Non-Formulary Medication 4 mg 02/15/20 16:31 Tizanidine PO TID PRN Muscle Pain Omeprazole 20 mg 02/16/20 09:00 02/19/20 08:31 Omeprazole 20 Mg Capsule.Dr PO 20 mg DAILY [facility]AMES Administration Ondansetron HCl 4 mg 02/17/20 10:01 02/19/20 08:30 Ondansetron Odt 4 Mg Tab.Rapdis TRANSLINGU 4 mg Q6H PRN Administration Nausea Tamsulosin HCl 0.4 mg 02/16/20 09:00 02/19/20 08:30 Tamsulosin Hcl 0.4 Mg Capsule PO 0.4 mg DAILY [facility] Administration Verapamil HCl 40 mg 02/15/20 21:00 02/19/20 08:31 Verapamil Hcl 40 Mg Tablet PO 40 mg TID [facility] Administration Protocol Vitamin D 50 mcg 02/16/20 09:00 02/19/20 08:30 Cholecalciferol (Vitamin D3) 25 Mcg Tablet PO 50 mcg DAILY [facility] Administration Zolpidem Tartrate 10 mg 02/15/20 16:31 02/18/20 20:05 Zolpidem Tartrate 5 Mg Tablet PO 10 mg BEDTIME PRN Administration Insomnia Allergies Allergies Allergy/AdvReac Type Severity Reaction Status Date / Time trazodone [TRAZODONE] Allergy Severe FACIAL Verified 02/14/20 21:12 SWELLING, swelling cat dander [CATS] Allergy Intermediate FACIAL Verified 02/14/20 21:12 ITCHING doxepin [DOXEPIN] Allergy Intermediate WEIGHT Verified 02/14/20 21:12 GAIN/LEG SWELLING Iodinated Contrast Media Allergy Intermediate ITCHING Verified 02/14/20 21:12 [IV DYE, IODINE CONTAINING CONTRAST ] acetaminophen [Tylenol] Allergy Unknown stomach Verified 02/14/20 21:12 pain nitroglycerin [NITROGLYCERIN] Allergy Unknown UNKNOWN Verified 02/14/20 21:12 tramadol [TRAMADOL] Allergy Unknown UNKNOWN, Verified 02/14/20 21:12 dry mouth ibuprofen [From MOTRIN] AdvReac Intermediate GI UPSET Verified 02/14/20 21:12 quetiapine [From SEROQUEL] AdvReac Intermediate FACIAL Verified 02/14/20 21:12 SWELLING aspirin [ASPIRIN] AdvReac Mild Stomach Verified 02/17/20 10:36 Upset Ibuprofen Allergy Unknown stomach Uncoded 11/24/19 00:00 ache IV contrast Allergy Unknown Unknown Uncoded 02/14/20 21:12 Motrin Allergy Unknown stomach Uncoded 11/24/19 00:00 pain Assessment & Plan Assessment & Plan (1) Major depressive disorder, recurrent severe without psychotic features: Status: Acute Code(s): F33.2 - Major depressive disorder, recurrent severe without psychotic features Assessment and Plan: continue medications recheck CBC and CMP Collect collateral history ELS 7 days Greater than 50% of the session was spent on counseling and/or coordination of care Patient educated on: medication risk/benefits and medical condition Informed Consent: further education needed Reason for contiued inpatient stay Substantial Risk for: harm to self, inability to function, rapid decompensation and med/psych decompensation
[2020-02-19 14:30] VITALS: BP 117/70; PULSE 83
[2020-02-19 15:55] VITALS: BP 117/68; PULSE 76; TEMP 36.6
[2020-02-19] MEDS: diphenhydrAMINE HCL 25 MG TABLET PO (20:16)
[2020-02-19 20:17] VITALS: BP 129/66; PULSE 76
[2020-02-19] MEDS: Zolpidem Tartrate 5 MG TABLET 10 MG PO (20:17)
[2020-02-20] MEDS: hydrOXYzine HCL 25 MG TABLET PO (00:49)
[2020-02-20] MEDS: Acetaminophen 325 MG TABLET 650 MG PO (03:41)
[2020-02-20 04:20] VITALS: BP 118/69; PULSE 74; RESP 16; TEMP 36.4
[2020-02-20 08:49] VITALS: BP 118/69; PULSE 74
[2020-02-20] MEDS: NaPROXEN 250 MG TABLET PO ×2 (08:49→17:28)
[2020-02-20] MEDS: atenoloL 25 MG TABLET PO (08:49)
[2020-02-20 08:50] VITALS: BP 118/69; PULSE 74
[2020-02-20] MEDS: clonazePAM 1 MG TABLET PO ×3 (08:50→20:02)
[2020-02-20] MEDS: Tamsulosin HCL 0.4 MG CAPSULE PO (08:50)
[2020-02-20] MEDS: Omeprazole 20 MG CAPSULE.DR PO (08:50)
[2020-02-20] MEDS: Cholecalciferol (Vitamin D3) 25 MCG TABLET 50 MCG PO (08:50)
[2020-02-20] MEDS: VerapamiL HCL 40 MG TABLET PO ×3 (08:50→20:02)
--- NOTE | 2020-02-20 09:24 | P.PNPSI_ITS ---
Subjective Subjective Date of Service: 02/20/20 Reason For Visit: psychosis Subjective Notes: Conditional Voluntary Interim History: Jerson is feeling well and he wants to go home. He has no further GI upset. He plans to move to [place] at the beginning of March. DC planned for tomorrow Medication Compliance: Yes Side effects from medications: No Attending Groups: Intermittent Review of Systems Acute medical concerns: No Medical Review of Systems: unchanged Mental Status Exam Mental Status Exam Patient Appearance: Fatigued Patient Orientation: Person, Place, Time and Situation Level of Consciousness: Awake Patient Behavior: Appropriate Mood Description: Calm Affect Description: Calm and Relaxed Patient Cognition Impaired: No Ability to Follow Directions: Good Speech Pattern: Clear and Appropriate Memory Description: Intact Hallucinations: None Delusions: Not Present Thought Process: Intact and Rumination Thought Content: negative for Suicidal Ideation and negative for Homicidal Ideation Diagnostics Vital Signs (24Hr): Vital Signs - 24 hr 02/19/20 14:30 02/19/20 15:55 02/19/20 20:17 Temperature 97.9 F Pulse Rate 83 76 76 Respiratory Rate Blood Pressure 117/70 117/68 129/66 02/20/20 04:20 02/20/20 08:49 02/20/20 08:50 Temperature 97.6 F Pulse Rate 74 74 74 Respiratory Rate 16 Blood Pressure 118/69 118/69 118/69 Body Mass Index 23.8 Labs Results: 02/19/20 07:10 02/19/20 07:10 Labs: Laboratory Results - last 48 hr 02/19/20 02/19/20 07:10 07:10 WBC 8.5 RBC 4.12 L Hgb 12.7 L Hct 38.5 L MCV 93.4 MCH 30.8 MCHC 33.0 RDW 12.0 Plt Count 198 MPV 9.9 Immature Gran % (Auto) 0.2 Neut % (Auto) 66.0 Lymph % (Auto) 25.8 [place] % (Auto) 5.8 Eos % (Auto) 2.0 Baso % (Auto) 0.2 Lymph # (Auto) 2.2 [place] # (Auto) 0.5 Eos # (Auto) 0.2 Baso # (Auto) 0.0 Abs Immat Gran (auto) 0.02 Absolute Neuts (auto) 5.6 Absolute Nucleated RBC 0.000 Nucleated RBC % (auto) 0.0 Sodium 140 Potassium 4.9 D Chloride 102 Carbon Dioxide 33 H Anion Gap 10 L BUN 18 H D Creatinine 0.85 Estim Creat Clear Calc 89.4 Estimated GFR > 60 Fasting Glucose 108 H Calcium 8.8 D Total Bilirubin 0.3 AST 14 ALT 14 Alkaline Phosphatase 62 D Total Protein 6.4 L Albumin 3.9 Imaging Radiology Impressions: ITS Impressions Chest X-Ray 02/14/20 21:00 IMPRESSION: Unremarkable examination. Medications Medications Current Medications Generic Name Dose Route Start Last Admin Trade Name Freq PRN Reason Stop Dose Admin Acetaminophen 650 mg 02/16/20 15:07 02/20/20 03:41 Acetaminophen 325 Mg Tablet PO 650 mg Q6H PRN Administration Headache/Pain Mild Scale (1-3) Al Hydroxide/Mg Hydroxide 30 ml 02/16/20 15:07 02/16/20 16:36 Magnesium Hydrox/Alum Hydrox 30 Ml Oral.Susp PO 30 ml Q6H PRN Administration Heartburn/Nausea Albuterol Sulfate 1 puff 02/17/20 09:38 Albuterol Sulfate 90 Mcg 8 Gm Inhaler INHALE QID PRN Shortness of Breath/Wheezing Atenolol 25 mg 02/16/20 09:00 02/20/20 08:49 Atenolol 25 Mg Tablet PO 25 mg DAILY JAMES Administration Protocol Clonazepam 1 mg 02/15/20 21:00 02/20/20 08:50 Clonazepam 1 Mg Tablet PO 1 mg TID JAMES Administration Diphenhydramine HCl 25 mg 02/15/20 21:00 02/19/20 20:16 Diphenhydramine Hcl 25 Mg Tablet PO 25 mg BEDTIME JAMES Administration Hydroxyzine HCl 25 mg 02/16/20 15:07 02/20/20 00:49 Hydroxyzine Hcl 25 Mg Tablet PO 25 mg BEDTIME PRN Administration Anxiety Lactulose 20 gm 02/16/20 09:00 02/20/20 08:51 Lactulose 20 Gm/30 Ml Solution PO Not Given DAILY JAMES Loperamide HCl 2 mg 02/17/20 12:35 02/19/20 14:31 Loperamide Hcl 2 Mg Capsule PO 2 mg Q4H PRN Administration Diarrhea Magnesium Hydroxide 30 ml 02/16/20 15:07 Milk Of Magnesia 30 Ml Oral.Susp PO DAILY PRN Constipation Naproxen 250 mg 02/17/20 17:00 02/20/20 08:49 Naproxen 250 Mg Tablet PO 250 mg BIDWM JAMES Administration Non-Formulary Medication 125 mg 02/15/20 16:31 Simethicone [Gas Relief (Simethicone)] PO QID PRN abdominal distention, gas Non-Formulary Medication 4 mg 02/15/20 16:31 Tizanidine PO TID PRN Muscle Pain Omeprazole 20 mg 02/16/20 09:00 02/20/20 08:50 Omeprazole 20 Mg Capsule.Dr PO 20 mg DAILY JAMES Administration Ondansetron HCl 4 mg 02/17/20 10:01 02/19/20 08:30 Ondansetron Odt 4 Mg Tab.Rapdis TRANSLINGU 4 mg Q6H PRN Administration Nausea Tamsulosin HCl 0.4 mg 02/16/20 09:00 02/20/20 08:50 Tamsulosin Hcl 0.4 Mg Capsule PO 0.4 mg DAILY JAMES Administration Verapamil HCl 40 mg 02/15/20 21:00 02/20/20 08:50 Verapamil Hcl 40 Mg Tablet PO 40 mg TID JAMES Administration Protocol Vitamin D 50 mcg 02/16/20 09:00 02/20/20 08:50 Cholecalciferol (Vitamin D3) 25 Mcg Tablet PO 50 mcg DAILY JAMES Administration Zolpidem Tartrate 10 mg 02/15/20 16:31 02/19/20 20:17 Zolpidem Tartrate 5 Mg Tablet PO 10 mg BEDTIME PRN Administration Insomnia Allergies Allergies Allergy/AdvReac Type Severity Reaction Status Date / Time trazodone [TRAZODONE] Allergy Severe FACIAL Verified 02/14/20 21:12 SWELLING, swelling cat dander [CATS] Allergy Intermediate FACIAL Verified 02/14/20 21:12 ITCHING doxepin [DOXEPIN] Allergy Intermediate WEIGHT Verified 02/14/20 21:12 GAIN/LEG SWELLING Iodinated Contrast Media Allergy Intermediate ITCHING Verified 02/14/20 21:12 [IV DYE, IODINE CONTAINING CONTRAST ] acetaminophen [Tylenol] Allergy Unknown stomach Verified 02/14/20 21:12 pain nitroglycerin [NITROGLYCERIN] Allergy Unknown UNKNOWN Verified 02/14/20 21:12 tramadol [TRAMADOL] Allergy Unknown UNKNOWN, Verified 02/14/20 21:12 dry mouth ibuprofen [From MOTRIN] AdvReac Intermediate GI UPSET Verified 02/14/20 21:12 quetiapine [From SEROQUEL] AdvReac Intermediate FACIAL Verified 02/14/20 21:12 SWELLING aspirin [ASPIRIN] AdvReac Mild Stomach Verified 02/17/20 10:36 Upset Ibuprofen Allergy Unknown stomach Uncoded 11/24/19 00:00 ache IV contrast Allergy Unknown Unknown Uncoded 02/14/20 21:12 Motrin Allergy Unknown stomach Uncoded 11/24/19 00:00 pain Assessment & Plan Assessment & Plan (1) Major depressive disorder, recurrent severe without psychotic features: Status: Acute Code(s): F33.2 - Major depressive disorder, recurrent severe without psychotic features Assessment and Plan: CT current medication DC in am Greater than 50% of the session was spent on counseling and/or coordination of care Patient educated on: medication risk/benefits and medical condition Informed Consent: further education needed Reason for contiued inpatient stay Substantial Risk for: rapid decompensation
[2020-02-20] MEDS: Loperamide HCl 2 MG CAPSULE PO ×2 (13:35→19:04)
[2020-02-20 14:58] VITALS: BP 102/53; PULSE 85
[2020-02-20 18:00] VITALS: BP 135/61; PULSE 64; TEMP 36.4
[2020-02-20 20:02] VITALS: BP 135/61; PULSE 64
[2020-02-20] MEDS: diphenhydrAMINE HCL 25 MG TABLET PO (20:02)
[2020-02-20] MEDS: Zolpidem Tartrate 5 MG TABLET 10 MG PO (20:08)
[2020-02-21 06:00] VITALS: BP 122/76; PULSE 76; TEMP 37.1
[2020-02-21 08:28] VITALS: BP 122/76; PULSE 76
[2020-02-21] MEDS: atenoloL 25 MG TABLET PO (08:28)
[2020-02-21] MEDS: Cholecalciferol (Vitamin D3) 25 MCG TABLET 50 MCG PO (08:28)
[2020-02-21] MEDS: Tamsulosin HCL 0.4 MG CAPSULE PO (08:28)
[2020-02-21] MEDS: Omeprazole 20 MG CAPSULE.DR PO (08:28)
[2020-02-21] MEDS: VerapamiL HCL 40 MG TABLET PO (08:28)
[2020-02-21] MEDS: clonazePAM 1 MG TABLET PO (08:28)
[2020-02-21] MEDS: NaPROXEN 250 MG TABLET PO (08:28)
[2020-02-21] MEDS: Loperamide HCl 2 MG CAPSULE PO (09:22)
--- NOTE | 2020-02-21 18:15 | P.DS_ITS ---
DS: Providers Provider Date of admission: 02/16/20 13:40 Primary care physician: Unknown Physician DS: Diagnosis Discharge Diagnosis (1) Major depressive disorder, recurrent severe without psychotic features: Status: Acute DS: Medications Discharge Medications Home Medications: Home Medications Medication Instructions Recorded Confirmed clonazepam 1 mg tablet 1 mg PO TID 01/06/20 02/15/20 Previous Rx's Medication Instructions Recorded meloxicam 15 mg tablet 15 mg PO DAILY 30 Days #30 tab 02/02/20 lactulose 20 gram/30 mL oral 20 g PO DAILY 30 Days #900 ml 02/10/20 solution simethicone 125 mg chewable tablet 125 mg PO QID PRN 30 Days #120 tab 02/10/20 albuterol sulfate [ProAir HFA] 1 puff INHALATION QID PRN #1 g 02/21/20 atenolol 25 mg PO DAILY #30 tab 02/21/20 cholecalciferol (vitamin D3) 50 mcg PO DAILY #30 cap 02/21/20 [Vitamin D3] diphenhydramine HCl [Banophen] 25 mg PO BEDTIME #30 cap 02/21/20 metoclopramide HCl 10 mg PO QIDACHS PRN #15 tab 02/21/20 omeprazole 20 mg PO DAILY #30 cap 02/21/20 ondansetron 4 mg TRANSLINGUAL Q6H PRN #10 tab 02/21/20 oxycodone 5 mg PO BID PRN #4 cap 02/21/20 tamsulosin 0.4 mg PO DAILY #30 cap 02/21/20 tizanidine 4 mg PO TID PRN #90 cap 02/21/20 verapamil 40 mg PO TID #90 tab 02/21/20 zolpidem 10 mg PO BEDTIME PRN #30 tab 02/21/20 Discharge Plan Discharge Patient Disposition: Home, Self-Care Referrals: Jayson Phelan, therapist, [facility] [Other] - 02/22/20 11:[address] Bud Love, psychiatry, [facility] [Other] - 02/27/20 11:00 am Laly Ribera DO [Physician] - 02/23/20 9:00 am (via telephone) Discharge Medications: New ondansetron 4 mg Tablet,Disintegrating 4 mg translingual Q6H PRN (Reason: Nausea) Qty: 10 RF: 0 Continued lactulose 20 gram/30 mL solution 20 g PO DAILY 30 Days Qty: 900 RF: 3 simethicone [Gas Relief (simethicone)] 125 mg tablet,chewable 125 mg PO QID PRN (Reason: abdominal distention, gas) 30 Days Qty: 120 RF: 3 verapamil 40 mg tablet 40 mg PO TID Qty: 90 RF: 0 atenolol 25 mg tablet 25 mg PO DAILY Qty: 30 RF: 0 tamsulosin 0.4 mg capsule 0.4 mg PO DAILY Qty: 30 RF: 0 diphenhydramine HCl [Banophen] 25 mg capsule 25 mg PO BEDTIME Qty: 30 RF: 0 oxycodone 5 mg capsule 5 mg PO BID PRN (Reason: Pain) Qty: 4 RF: 0 omeprazole 20 mg capsule,delayed release(DR/EC) 20 mg PO DAILY Qty: 30 RF: 0 zolpidem 10 mg Tablet 10 mg PO BEDTIME PRN (Reason: Insomnia) Qty: 30 RF: 0 tizanidine 4 mg capsule 4 mg PO TID PRN (Reason: Muscle Pain) Qty: 90 RF: 0 cholecalciferol (vitamin D3) [Vitamin D3] 50 mcg (2,000 unit) capsule 50 mcg PO DAILY Qty: 30 RF: 0 meloxicam [Mobic] 15 mg tablet 15 mg PO DAILY 30 Days Qty: 30 RF: 0 clonazepam [Klonopin] 1 mg tablet 1 mg PO TID RF: 0 Changed albuterol sulfate [ProAir HFA] 90 mcg/actuation HFA aerosol inhaler 1 puff inhalation QID PRN (Reason: Shortness Of Breath Or Wheezing) Qty: 1 RF: 0 metoclopramide HCl 10 mg tablet 10 mg PO QIDACHS PRN (Reason: Nausea) Qty: 15 RF: 0 Discharge Orders: Discharge Order (Routine); Ordered 02/21/20 Ordered By: Alejandrina Recinos Diet: advance to usual diet Activity on Discharge: As tolerated Stand Alone Forms: Community Support Discharge Date/Time: 02/21/20 12:27 Visit Report Forms: Patient Portal Discharge page Care Plan Goals: Decrease depression Remain sober Health Concerns: Depression Substance abuse Plan of Treatment: Stay on you medications Don't use drugs Mental Status Exam Mental Status Exam Patient Appearance: Fatigued Patient Orientation: Person, Place, Time and Situation Level of Consciousness: Awake Patient Behavior: Appropriate Mood Description: Calm Affect Description: Calm and Relaxed Patient Cognition Impaired: No Ability to Follow Directions: Good Speech Pattern: Clear and Appropriate Memory Description: Intact Hallucinations: None Delusions: Not Present Thought Process: Intact and Rumination Thought Content: negative for Suicidal Ideation and negative for Homicidal Ideation Data Data Completed and Pending Completed studies during hospitalization [Text1]: 02/14/20 02/14/20 02/14/20 21:16 21:16 21:16 WBC 12.1 H RBC 4.84 Hgb 14.9 Hct 43.9 MCV 90.7 MCH 30.8 MCHC 33.9 RDW 12.8 Plt Count 263 MPV 9.3 L Immature Gran % (Auto) 0.3 Neut % (Auto) 77.4 H Lymph % (Auto) 18.8 L [place] % (Auto) 3.3 Eos % (Auto) 0.0 Baso % (Auto) 0.2 Lymph # (Auto) 2.3 [place] # (Auto) 0.4 Eos # (Auto) 0.0 Baso # (Auto) 0.0 Abs Immat Gran (auto) 0.04 H Absolute Neuts (auto) 9.3 H Absolute Nucleated RBC 0.000 Nucleated RBC % (auto) 0.0 Hold Blue Top SEE NOTE Sodium 142 Potassium 3.7 Chloride 98 Carbon Dioxide 26 Anion Gap 22 H BUN 8 L D Creatinine 0.85 Estim Creat Clear Calc 89.4 Estimated GFR > 60 Random Glucose 134 H Fasting Glucose Estimat Average Glucose Hemoglobin A1c % Calcium 9.6 Total Bilirubin Direct Bilirubin AST ALT Alkaline Phosphatase Troponin I High Sens Total Protein Albumin Lipase Urine Color Urine Appearance Urine pH Ur Specific [place] Urine Protein Urine Glucose (UA) Urine Ketones Urine Blood Urine Nitrite Ur Leukocyte Esterase Urine RBC Urine WBC Ur Squamous Epith Cells Urine Bacteria Urine Mucus Urine Opiates Screen Ur Barbiturates Screen Ur Phencyclidine Scrn Ur Amphetamines Screen U Benzodiazepines Scrn Urine Cocaine Screen U Marijuana (THC) Screen Ethyl Alcohol Coronavirus (PCR) Influenza Type A (PCR) Influenza Type B (PCR) RSV RNA Qual (PCR) 02/14/20 02/14/20 02/14/20 21:16 21:16 21:16 WBC RBC Hgb Hct MCV MCH MCHC RDW Plt Count MPV Immature Gran % (Auto) Neut % (Auto) Lymph % (Auto) [place] % (Auto) Eos % (Auto) Baso % (Auto) Lymph # (Auto) [place] # (Auto) Eos # (Auto) Baso # (Auto) Abs Immat Gran (auto) Absolute Neuts (auto) Absolute Nucleated RBC Nucleated RBC % (auto) Hold Blue Top Sodium Potassium Chloride Carbon Dioxide Anion Gap BUN Creatinine Estim Creat Clear Calc Estimated GFR Random Glucose Fasting Glucose Estimat Average Glucose Hemoglobin A1c % Calcium Total Bilirubin 0.6 Direct Bilirubin 0.2 AST 18 ALT 19 Alkaline Phosphatase 97 D Troponin I High Sens < 3.5 Total Protein 8.0 D Albumin 4.8 Lipase < 4 L Urine Color Urine Appearance Urine pH Ur Specific [place] Urine Protein Urine Glucose (UA) Urine Ketones Urine Blood Urine Nitrite Ur Leukocyte Esterase Urine RBC Urine WBC Ur Squamous Epith Cells Urine Bacteria Urine Mucus Urine Opiates Screen Ur Barbiturates Screen Ur Phencyclidine Scrn Ur Amphetamines Screen U Benzodiazepines Scrn Urine Cocaine Screen U Marijuana (THC) Screen Ethyl Alcohol 88 Coronavirus (PCR) Influenza Type A (PCR) Influenza Type B (PCR) RSV RNA Qual (PCR) 02/15/20 02/15/20 02/16/20 06:41 06:41 04:26 WBC RBC Hgb Hct MCV MCH MCHC RDW Plt Count MPV Immature Gran % (Auto) Neut % (Auto) Lymph % (Auto) [place] % (Auto) Eos % (Auto) Baso % (Auto) Lymph # (Auto) [place] # (Auto) Eos # (Auto) Baso # (Auto) Abs Immat Gran (auto) Absolute Neuts (auto) Absolute Nucleated RBC Nucleated RBC % (auto) Hold Blue Top Sodium Potassium Chloride Carbon Dioxide Anion Gap BUN Creatinine Estim Creat Clear Calc Estimated GFR Random Glucose Fasting Glucose Estimat Average Glucose Hemoglobin A1c % Calcium Total Bilirubin Direct Bilirubin AST ALT Alkaline Phosphatase Troponin I High Sens Total Protein Albumin Lipase Urine Color YELLOW Urine Appearance CLEAR Urine pH 6.0 Ur Specific [place] >= 1.030 H Urine Protein TRACE Urine Glucose (UA) NEG Urine Ketones NEG Urine Blood 1+ H Urine Nitrite NEG Ur Leukocyte Esterase NEG Urine RBC 1-4 Urine WBC 0 Ur Squamous Epith Cells TRACE Urine Bacteria NONE Urine Mucus TRACE Urine Opiates Screen POSITIVE H Ur Barbiturates Screen Not Detected Ur Phencyclidine Scrn Not Detected Ur Amphetamines Screen Not Detected U Benzodiazepines Scrn Not Detected Urine Cocaine Screen POSITIVE H U Marijuana (THC) Screen Not Detected Ethyl Alcohol Coronavirus (PCR) NEGATIVE Influenza Type A (PCR) NEGATIVE Influenza Type B (PCR) NEGATIVE RSV RNA Qual (PCR) NEGATIVE 02/17/20 02/19/20 02/19/20 04:59 07:10 07:10 WBC 8.5 RBC 4.12 L Hgb 12.7 L Hct 38.5 L MCV 93.4 MCH 30.8 MCHC 33.0 RDW 12.0 Plt Count 198 MPV 9.9 Immature Gran % (Auto) 0.2 Neut % (Auto) 66.0 Lymph % (Auto) 25.8 [place] % (Auto) 5.8 Eos % (Auto) 2.0 Baso % (Auto) 0.2 Lymph # (Auto) 2.2 [place] # (Auto) 0.5 Eos # (Auto) 0.2 Baso # (Auto) 0.0 Abs Immat Gran (auto) 0.02 Absolute Neuts (auto) 5.6 Absolute Nucleated RBC 0.000 Nucleated RBC % (auto) 0.0 Hold Blue Top Sodium 140 Potassium 4.9 D Chloride 102 Carbon Dioxide 33 H Anion Gap 10 L BUN 18 H D Creatinine 0.85 Estim Creat Clear Calc 89.4 Estimated GFR > 60 Random Glucose Fasting Glucose 108 H Estimat Average Glucose 108 Hemoglobin A1c % 5.4 Calcium 8.8 D Total Bilirubin 0.3 Direct Bilirubin AST 14 ALT 14 Alkaline Phosphatase 62 D Troponin I High Sens Total Protein 6.4 L Albumin 3.9 Lipase Urine Color Urine Appearance Urine pH Ur Specific [place] Urine Protein Urine Glucose (UA) Urine Ketones Urine Blood Urine Nitrite Ur Leukocyte Esterase Urine RBC Urine WBC Ur Squamous Epith Cells Urine Bacteria Urine Mucus Urine Opiates Screen Ur Barbiturates Screen Ur Phencyclidine Scrn Ur Amphetamines Screen U Benzodiazepines Scrn Urine Cocaine Screen U Marijuana (THC) Screen Ethyl Alcohol Coronavirus (PCR) Influenza Type A (PCR) Influenza Type B (PCR) RSV RNA Qual (PCR) Imaging Diagnostic Imaging Impressions Chest X-Ray 02/14/20 21:00 IMPRESSION: Unremarkable examination. DS: Summary Hospital Course Hospital Course: 49 year old man who was admitted after being referred by [facility]. He carries the diagnosis of major depression, severe, and substance abuse. This is one of many admissions to with the last one being in December 2019. He presented to the ER with physical complaints of abdominal pain, nausea and diarrhea. He also had a toxic screen positive for opiates and cocaine. He denies using the same. He was DC from [facility] on 02/10/20. .No acute abnormalities were found to explain his GI symptoms and he was medically cleared for admission. During the course of the medical evaluation he reported that he had SI. He stated that a relative, his nephew, recently of a drug OD, and he has been grieving his loss. He has been increasingly depressed and has had AH. He has been feeling guilty for his nephew's . Upon arrival to the unit he continued to have some GI issues, and SI. He reports that he found his previous medications helpful. He reports that he has only been taking klonopin of late and that he does not need other psychiatric medications. He signed a CV. Past Psychiatric History: Multiple hospital stays. He has providers at [facility] When he first arrived on the unit Jerson complained of GI issues. When these resolved her rapidly recompensated. He wanted to leave. He did not want any other medication beside clonazepam. He denied using drugs, despite the positive toxic screen. He claimed that he planned to move to [place] to live with his family members, in the beginning of March. By the time of DC he was bright and engaged. He had no AH. Status at Discharge Functional status at discharge: independent ambulation Overall status at discharge: patient is progressing back to baseline Time Spent with Patient Time attestation: Total time spent providing and/or coordinating discharge services:
== END 2020-02-21 12:27 | disposition home or self-care (01) | DRG 751 ==
LOC: HO.ED 02-15 02:31 → HO.PM5 02-16 13:41
PROVIDERS: Clinical Nurse Specialist Psychiatric/Mental Health; Admitting Provider Psychiatry & Neurology Psychiatry; Emergency Provider Emergency Medicine; Visit Provider Psychiatry & Neurology Psychiatry
DX: F33.2 Major depressive disorder, recurrent severe without psychotic features (principal); R45.851 Suicidal ideations; F17.210 Nicotine dependence, cigarettes, uncomplicated; K21.9 Gastro-esophageal reflux disease without esophagitis; Z71.6 Tobacco abuse counseling; Z20.828 Contact with and (suspected) exposure to other viral communicable diseases; Z88.6 Allergy status to analgesic agent; Z79.891 Long term (current) use of opiate analgesic; Z79.899 Other long term (current) drug therapy
CPT/HCPCS: 0241U; 36415; 71045; 80048; 80053; 80076; 80307; 80320; 81001; 83036; 83690; 84484; 85025; 93005; 99232; 99285; J2060; J2270; J2405; Q0163

== ENCOUNTER 2020-03-08 09:19 | Emergency (ER) | payer MEDICAID, SELFPAY ==
[2020-03-08 09:24] VITALS: BP 129/75; PULSE 75; RESP 16; TEMP 36.9; O2SAT 99; BMI 24.2
--- NOTE | 2020-03-08 10:12 | ED.ABDPAIN ---
HPI - Abdominal Pain General Chief Complaint: Abdominal Pain Stated Complaint: flank and abd pain, unable to urinate Time Seen by Provider: 03/08/20 09:46 Source: patient Mode of arrival: ambulatory Limitations: no limitations History of Present Illness HPI narrative: patient presents to ED limb pain for the past 3 days. Patient states back pain radiates to the abdomen. Patient's dates no dysuria, hematuria, fever, chills testicular pain, penile discharge or penile lesions. Patient denies any recent trauma. Patient states urinary tension MD elicited complaint: abdominal pain Related Data Home Medications Medication Instructions Recorded Confirmed clonazepam 1 mg tablet 1 mg PO TID 01/06/20 02/15/20 Previous Rx's Medication Instructions Recorded lactulose 20 gram/30 mL oral 20 g PO DAILY 30 Days #900 ml 02/10/20 solution simethicone 125 mg chewable tablet 125 mg PO QID PRN 30 Days #120 tab 02/10/20 albuterol sulfate [ProAir HFA] 1 puff INHALATION QID PRN #1 g 02/21/20 atenolol 25 mg PO DAILY #30 tab 02/21/20 cholecalciferol (vitamin D3) 50 mcg PO DAILY #30 cap 02/21/20 [Vitamin D3] diphenhydramine HCl [Banophen] 25 mg PO BEDTIME #30 cap 02/21/20 metoclopramide HCl 10 mg PO QIDACHS PRN #15 tab 02/21/20 omeprazole 20 mg PO DAILY #30 cap 02/21/20 oxycodone 5 mg PO BID PRN #4 cap 02/21/20 tamsulosin 0.4 mg PO DAILY #30 cap 02/21/20 tizanidine 4 mg PO TID PRN #90 cap 02/21/20 verapamil 40 mg PO TID #90 tab 02/21/20 zolpidem 10 mg PO BEDTIME PRN #30 tab 02/21/20 ondansetron 4 mg disintegrating 4 mg TRANSLINGUAL DAILY PRN 30 02/29/20 tablet Days #30 tab Allergies Allergy/AdvReac Type Severity Reaction Status Date / Time trazodone [TRAZODONE] Allergy Severe FACIAL Verified 02/14/20 21:12 SWELLING, swelling cat dander [CATS] Allergy Intermediate FACIAL Verified 02/14/20 21:12 ITCHING doxepin [DOXEPIN] Allergy Intermediate WEIGHT Verified 02/14/20 21:12 GAIN/LEG SWELLING Iodinated Contrast Media Allergy Intermediate ITCHING Verified 02/14/20 21:12 [IV DYE, IODINE CONTAINING CONTRAST ] acetaminophen [Tylenol] Allergy Unknown stomach Verified 02/14/20 21:12 pain nitroglycerin [NITROGLYCERIN] Allergy Unknown UNKNOWN Verified 02/14/20 21:12 tramadol [TRAMADOL] Allergy Unknown UNKNOWN, Verified 02/14/20 21:12 dry mouth ibuprofen [From MOTRIN] AdvReac Intermediate GI UPSET Verified 02/14/20 21:12 quetiapine [From SEROQUEL] AdvReac Intermediate FACIAL Verified 02/14/20 21:12 SWELLING aspirin [ASPIRIN] AdvReac Mild Stomach Verified 02/17/20 10:36 Upset Ibuprofen Allergy Unknown stomach Uncoded 11/24/19 00:00 ache IV contrast Allergy Unknown Unknown Uncoded 02/14/20 21:12 Motrin Allergy Unknown stomach Uncoded 11/24/19 00:00 pain Review of Systems Review of Systems Yes all other systems are reviewed and are negative Constitutional: Reports as per HPI and Reports no additional constitutional complaints Eyes: Reports as per HPI and Reports no additional eye complaints Reports system reviewed and no additional complaints, except as documented and Reports as per HPI Cardiovascular: Reports as per HPI and Reports no additional cardiovascular complaints Respiratory: Reports as per HPI and Reports no additional respiratory complaints Gastrointestinal: Reports as per HPI, Reports no additional gastrointestinal complaints and Reports abdominal pain Comments: Right flank pain Genitourinary: Reports no additional male genitourinary complaints and Reports as per HPI Musculoskeletal: Reports no additional musculoskeletal complaints and Reports as per HPI Reports system reviewed and no additional complaints, except as documented and Reports as per HPI Psychiatric: Reports no additional psychiatric complaints and Reports as per HPI Physical Exam Vital Signs: Vital Signs: Last Vital Signs Temp 99.1 F 03/08/20 10:15 Pulse 70 03/08/20 10:15 Resp 18 03/08/20 10:15 BP 111/67 03/08/20 10:15 Pulse Ox 97 03/08/20 10:15 Body Mass Index 24.2 Const: General: cooperative, healthy appearing, comfortable, no acute distress, well developed and alert Orientation/consciousness: patient oriented x3 HENMT: Head: Yes normal to inspection and Yes No palpable skull fracture present Eyes: General: appearance normal, both eyes and all related structures Neck: Neck: Yes normal visual inspection, Yes full ROM, Yes no lymphadenopathy, Yes no meningeal signs, Yes trachea midline, Yes supple and No tender Chest: Chest palpation & inspection: normal inspection of the chest and normal palpation of entire chest wall Resp: Effort & Inspection: normal respiratory effort and able to speak in complete sentences Auscultation: clear to auscultation bilaterally Cardio: Jugular venous distension: no JVD Heart sounds: S1 normal heart sound present and S2 normal heart sound present GI: Inspection: Yes normal to inspection and No abdominal wall ecchymosis Palpation (GI): Soft to palpation, not firm, nontender, no guarding and not rigid : General: Yes CVA tenderness ( right) Back/Spine/Pelvis: Back: CVA tenderness ( right) and back tenderness ( right-sided back) Skin: General skin exam: no rashes or lesions noted Neuro: General: patient oriented x3, gait normal, no meningeal signs and CN's II-XI intact bilaterally Cranial nerves: Yes CN's II-XII intact bilaterally Extrem: General: Yes normal to inspection and Yes full ROM Psych: Appearance: grossly normal and well kempt Course Course Course Narrative: patient will have basic labs ordered, and urinalysis. Patient had bladder scan done. Patient cannot have IV contrast due to severe allergies the patient will be sent for abdominal CT scan without contrast to rule for any emergent etiology including kidney stones. Patient given GI cocktail and oxycodone. Reevaluation(s) Reevaluation #1: Patient talking on the phone. Patient not in any distress. Patient constantly stating he wants Ativan & morphine. Patient is known to the ED for many years presenting with complaints in order to get access to ativan and morphin usually becomes restless and angry and leaves AMA. Patient became angry and wants to leave because he did not get his Ativan or morphine. I spoke to patient and informed him since he came in to the ED for abdominal pain and flank pain with urinary retention he should be sent for CT scan to make sure there is no kidney stones. Unlikely patient has urinary retention. Patient is not in any distress and is on his phone. Patient is not actively vomiting. Waiting for abdominal CT scan results come back. Patient labs normal including BUN creatinine. Reevaluation #2: patient's bladder scan was only 50 ml. Patient eventually was able to urinate on his own. Abdominal CT scan is normal negative for any abdominal etiology. Awaiting for UA results. Reevaluation #3: Patient does not want to wait for urinalysis results. Patient would like to leave. patient will sign out against medical advice knowin risk of , sepsis, infection, and decrease quality of life. Time: 13:21 MDM - Abdominal Pain MDM Narrative Medical decision making narrative: Abdominal pain/ GERD Lab Data Result diagrams: 03/08/20 10:23 03/08/20 10:23 Labs: Lab Results 03/08/20 03/08/20 03/08/20 Range/Units 10:23 10:23 10:23 WBC 5.1 (4.8-10.8) X10*3/uL RBC 3.93 L (4.60-5.80) X10*6/uL Hgb 12.1 L (14.0-18.0) g/dl Hct 37.1 L (42-52) % MCV 94.4 (80-98) fL MCH 30.8 (27.0-33.0) pg MCHC 32.6 (31.0-36.0) g/dl RDW 12.9 (11.0-16.0) % Plt Count 199 (160-400) X10*3/uL MPV 9.9 (9.4-12.4) fL Immature Gran % (Auto) 0.2 (0.0-0.4) % Neut % (Auto) 74.0 H (45-73) % Lymph % (Auto) 18.1 L (20-40) % [place] % (Auto) 5.4 (2-11) % Eos % (Auto) 2.1 (0-4) % Baso % (Auto) 0.2 (0-2) % Lymph # (Auto) 0.9 L (1.2-4.9) X10*3/uL [place] # (Auto) 0.3 (0.1-1.2) X10*3/uL Eos # (Auto) 0.1 (0.0-0.4) X10*3/uL Baso # (Auto) 0.0 (0.0-0.2) X10*3/uL Abs Immat Gran (auto) 0.01 (0.00-0.03) X10*3/uL Absolute Neuts (auto) 3.8 (2.0-8.3) X10*3/uL Absolute Nucleated RBC 0.000 (0.0-0.012) X10*3/uL Nucleated RBC % (auto) 0.0 (0.0-0.2) /100WBC PT 13.4 H (10.8-13.0) SEC INR 1.1 (0.9-1.1) APTT 32.5 (24.1-38.0) SEC Sodium 137 (135-145) mmol/L Potassium 4.3 (3.3-5.1) mmol/l Chloride 102 (96-108) mmol/L Carbon Dioxide 29 (22-29) mmol/L Anion Gap 10 L (12-20) BUN 10 (9-16) mg/dL Creatinine 0.86 (0.5-1.4) mg/dL Estim Creat Clear Calc 88.3 Estimated GFR > 60 Random Glucose 107 (60-115) mg/dL Calcium 9.0 (8.4-10.2) mg/dL Total Bilirubin 0.7 (0.0-1.0) mg/dL Direct Bilirubin 0.2 (0.0-0.5) mg/dL AST 24 D (5-37) U/L ALT 13 (0-40) U/L Alkaline Phosphatase 73 (39-117) U/L Total Protein 7.0 (6.5-8.0) g/dL Albumin 4.2 (3.5-5.0) g/dL Lipase < 4 L (8-78) U/L Discharge Plan Discharge Clinical Impression: Abdominal pain Patient Disposition: Left Against Medical Advice Instructions: Abdominal Pain (ED) Additional Instructions: return to the ED for worsening abdominal pain, chest pain, shortness of breath, nausea, vomiting, fever, chills, dysuria, hematuria, or any other concerning symptoms. Prescriptions: No Action lactulose 20 gram/30 mL solution 20 g PO DAILY 30 Days Qty: 900 RF: 3 simethicone [Gas Relief (simethicone)] 125 mg tablet,chewable 125 mg PO QID PRN (Reason: abdominal distention, gas) 30 Days Qty: 120 RF: 3 ondansetron 4 mg tablet,disintegrating 4 mg translingual DAILY PRN (Reason: nausea and vomiting) 30 Days Qty: 30 RF: 1 verapamil 40 mg tablet 40 mg PO TID Qty: 90 RF: 0 atenolol 25 mg tablet 25 mg PO DAILY Qty: 30 RF: 0 tamsulosin 0.4 mg capsule 0.4 mg PO DAILY Qty: 30 RF: 0 diphenhydramine HCl [Banophen] 25 mg capsule 25 mg PO BEDTIME Qty: 30 RF: 0 oxycodone 5 mg capsule 5 mg PO BID PRN (Reason: Pain) Qty: 4 RF: 0 omeprazole 20 mg capsule,delayed release(DR/EC) 20 mg PO DAILY Qty: 30 RF: 0 zolpidem 10 mg Tablet 10 mg PO BEDTIME PRN (Reason: Insomnia) Qty: 30 RF: 0 tizanidine 4 mg capsule 4 mg PO TID PRN (Reason: Muscle Pain) Qty: 90 RF: 0 cholecalciferol (vitamin D3) [Vitamin D3] 50 mcg (2,000 unit) capsule 50 mcg PO DAILY Qty: 30 RF: 0 albuterol sulfate [ProAir HFA] 90 mcg/actuation HFA aerosol inhaler 1 puff inhalation QID PRN (Reason: Shortness Of Breath Or Wheezing) Qty: 1 RF: 0 metoclopramide HCl 10 mg tablet 10 mg PO QIDACHS PRN (Reason: Nausea) Qty: 15 RF: 0 clonazepam [Klonopin] 1 mg tablet 1 mg PO TID RF: 0 Stand Alone Forms: Against Medical Advice Interventions: ED Discharge Assessment Last Done: 03/08/20 13:26 Discharge Date/Time: 03/08/20 13:30 Print Language: [place] [facility] Past Medical History Medical History Anxiety GERD (gastroesophageal reflux disease) Surgical History H/O umbilical hernia repair History of colonoscopy History of cystoscopy Family History Family History Father HTN (hypertension) Diabetes Mother HTN (hypertension) Stroke Alzheimer disease Heart disease Social History Social History Household Members: Friend(s) Housing: House Alcohol intake: never Smoking Status: Current every day smoker Tobacco Type: Cigarette Packs Per Day: 1 Cigarettes Per Day: 15 Years Smoked: 9 Smoked in Last 30 Days: No Second Hand Smoke Exposure: Yes Use of substances other than those prescribed or required for medical reasons: No Advance Directives: No Advance Directives Information Provided: No service: No Sexual orientation: Straight/Heterosexual
[2020-03-08 10:15] VITALS: BP 111/67; PULSE 70; RESP 18; TEMP 37.3; O2SAT 97
[2020-03-08 10:29] LABS: MANUAL DIFF FLAG NO
[2020-03-08 10:30] LABS: Basophils Percent Auto 0.2 % (0-2); Eosinophils Absolute Auto 0.1 X10*3/uL (0.0-0.4); Eosinophils Percent Auto 2.1 % (0-4); Hematocrit 37.1 % (42-52); Hemoglobin 12.1 g/dl (14.0-18.0); Imm Gran Abs Auto 0.01 X10*3/uL (0.00-0.03); Imm Gran Pct Auto 0.2 % (0.0-0.4); Lymphocytes Absolute Auto 0.9 X10*3/uL (1.2-4.9); Lymphocytes Percent Auto 18.1 % (20-40); Mean Corpuscular HGB Conc 32.6 g/dl (31.0-36.0); Mean Corpuscular Hemoglobin 30.8 pg (27.0-33.0); Mean Corpuscular Volume 94.4 fL (80-98); Mean Platelet Volume 9.9 fL (9.4-12.4); Monocytes Absolute Auto 0.3 X10*3/uL (0.1-1.2); Monocytes Percent Auto 5.4 % (2-11); Neutrophils Absolute Auto 3.8 X10*3/uL (2.0-8.3); Platelet Count 199 X10*3/uL (160-400); Red Blood Count 3.93 X10*6/uL (4.60-5.80); Red Cell Distribution Width 12.9 % (11.0-16.0); White Blood Count 5.1 X10*3/uL (4.8-10.8)
--- NOTE | 2020-03-08 10:35 | CT_ITS ---
EXAMINATION: CT ABDOMEN AND PELVIS WITHOUT CONTRAST CLINICAL INFORMATION: Right-sided flank pain with abdominal pain COMPARISON: July 23, 2019 and April 16, 2019 TECHNIQUE: Multidetector volumetric imaging was performed from the superior aspect of the liver through the pubic symphysis. Sagittal and coronal reformatted images were obtained on the technologist's workstation. This CT examination was performed using dose optimization techniques as appropriate, variously including the following: *Automated exposure control *Adjustment of mA and/or kV according to patient size (this includes techniques or standardized protocols for targeted exams where dose is matched to indication/reason for exam; i.e. extremities or head) *Use of iterative reconstruction technique DLP: 459 mGy-cm FINDINGS: LUNG BASES: The visualized lung bases are unremarkable. No pleural or pericardial effusion. The heart is enlarged. Coronary artery calcifications present. LIVER, GALLBLADDER, AND BILIARY TREE: The liver is normal in size, shape, and attenuation. No focal hepatic lesion or biliary ductal dilatation is present. The gallbladder is unremarkable with no evidence of radiopaque gallstones, gallbladder wall thickening, or obvious pericholecystic inflammatory changes. PANCREAS: Unremarkable. SPLEEN: Unremarkable. ADRENAL GLANDS: Unremarkable. KIDNEYS AND URETERS: The kidneys are normal in size, shape, and attenuation. No hydronephrosis, hydroureter, or calculi seen. Small amount of bilateral perinephric stranding. There is a 3.8 x 3.5 cm left renal upper pole cyst. BLADDER: Unremarkable. GASTROINTESTINAL TRACT: No dilated loops of large or small bowel evident. No free air or free fluid. No pericolonic stranding. No colonic wall thickening seen. The appendix is visualized and appears unremarkable. ABDOMINAL WALL: No significant hernia is appreciated. Anterior soft tissue density with metallic clips in place likely related to previous mesh placement about the pelvis. This is unchanged. LYMPH NODES: No lymphadenopathy appreciated. VASCULAR: Unremarkable. PELVIC VISCERA: Unremarkable. Calcified lymph node seen posterior to urinary bladder. OSSEOUS STRUCTURES: No suspicious destructive bony lesions identified. Pedicle screw and fitz fixation L3-L4. CT/CT abdomen pelvis wo con IMPRESSION: No evidence of ileus or obstruction. No evidence of obstructive uropathy.
[2020-03-08] MEDS: oxyCODONE HCl Immed Release 5 MG TABLET PO (10:40)
[2020-03-08 10:41] LABS: INTERNATIONAL NORM RATIO 1.1 (0.9-1.1); Prothrombin Time 13.4 SEC (10.8-13.0)
[2020-03-08] MEDS: 0.9 % Sodium Chloride 1,000 ML 999 ML IVCONT (10:41)
[2020-03-08] MEDS: Famotidine/PF 20 MG/2 ML VIAL IVPUSH (10:41)
[2020-03-08] MEDS: Magnesium Hydrox/Alum Hydrox 30 ML ORAL.SUSP PO (10:41)
--- NOTE | 2020-03-08 10:42 | PC.NURSE ---
pt arguing with this rn stating he only wants iv morphine. pt educated about narcotics and educated about po oxycodone. pt continues to argue with this rn. pt offered oxycodone or that he can refuse it and states he would just take it. pa aware.
[2020-03-08 10:44] LABS: Partial Thromboplastin Time 32.5 SEC (24.1-38.0)
--- NOTE | 2020-03-08 10:46 | PC.NURSE ---
pt now screaming anxiety! this rn to bedside. pt states the pain is too much! pt educated on narcotics again. pt not willing to listen.
[2020-03-08 11:32] LABS: Alanine Aminotransferase 13 U/L (0-40); Albumin Level 4.2 g/dL (3.5-5.0); Alkaline Phosphatase 73 U/L (39-117); Anion Gap 10 (12-20); Aspartate Amino Transferase 24 U/L (5-37); Bilirubin Direct 0.2 mg/dL (0.0-0.5); Bilirubin Total 0.7 mg/dL (0.0-1.0); Blood Urea Nitrogen 10 mg/dL (9-16); Carbon Dioxide 29 mmol/L (22-29); Chloride 102 mmol/L (96-108); Creatinine Clr Calc Pharmacy 88.3; Estimated Glomerular Filt Rate > 60; Glucose Random 107 mg/dL (60-115); Potassium 4.3 mmol/l (3.3-5.1); Sodium 137 mmol/L (135-145)
[2020-03-08 11:45] LABS: Lipase < 4 U/L (8-78)
--- NOTE | 2020-03-08 13:02 | PC.NURSE ---
pt reports not being able to urinate. witnessed urination by eligio mast rn earlier in visit. bladder scan completed by pct
== END 2020-03-08 13:30 | disposition left against medical advice (07) ==
PROVIDERS: Physician Assistant; Emergency Provider Emergency Medicine; PCP Internal Medicine
DX: R10.9 Unspecified abdominal pain (principal); Z76.5 Malingerer [conscious simulation]
CPT/HCPCS: 36415; 51798; 74176; 80053; 80076; 82248; 83690; 85025; 85610; 85730; 96361; 96374; 96375; 99284

== ENCOUNTER 2020-03-18 09:39 | Emergency (ER) | payer MEDICAID, SELFPAY ==
[2020-03-18 09:56] VITALS: BP 145/84; PULSE 68; RESP 18; TEMP 36.1; O2SAT 99; BMI 25.0
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
== END 2020-03-18 10:23 | disposition home or self-care (01) ==
PROVIDERS: Emergency Provider Emergency Medicine; PCP Internal Medicine
DX: S39.012A Strain of muscle, fascia and tendon of lower back, initial encounter (principal); S20.111A Abrasion of breast, right breast, initial encounter; I10 Essential (primary) hypertension; V43.52XA Car driver injured in collision with other type car in traffic accident, initial encounter; Y93.9 Activity, unspecified; Y92.410 Unspecified street and highway as the place of occurrence of the external cause; F17.210 Nicotine dependence, cigarettes, uncomplicated; Z71.6 Tobacco abuse counseling
CPT/HCPCS: 99283

== ENCOUNTER 2020-03-19 08:45 | Emergency (ER) | payer MEDICAID, SELFPAY ==
[2020-03-19 09:01] VITALS: BP 102/77; PULSE 78; RESP 18; TEMP 36.2; O2SAT 98; BMI 23.3
[2020-03-19] MEDS: clonazePAM 1 MG TABLET PO (09:35)
--- NOTE | 2020-03-19 09:46 | ED_ITS ---
HPI - Anxiety General Chief Complaint: Anxiety Stated Complaint: anxiety Time Seen by Provider: 03/19/20 09:24 Source: patient Mode of arrival: ambulatory Limitations: no limitations History of Present Illness HPI narrative: 49 y/o male with history of anxiety, depression, HTN, DM presents with increased anxiety since last night. He reports he has been compliant with his Klonopin 1 mg TID and has not been overusing. He ran out yesterday. He called his PCP who he states is going to call in prescription this week. He denies chest pain, SOB. Increased stress at home. MD complaint: anxiety Onset (ago): day(s) (1) Severity: moderate Quality: constant Place: home History of similar episodes: Yes Provoking factors: emotional stress Relieving factors: medication Exacerbating factors: nothing Associated symptoms: denies other symptoms Related Data Home Medications Medication Instructions Recorded Confirmed clonazepam 1 mg tablet 1 mg PO TID 01/06/20 02/15/20 Previous Rx's Medication Instructions Recorded lactulose 20 gram/30 mL oral 20 g PO DAILY 30 Days #900 ml 02/10/20 solution simethicone 125 mg chewable tablet 125 mg PO QID PRN 30 Days #120 tab 02/10/20 albuterol sulfate [ProAir HFA] 1 puff INHALATION QID PRN #1 g 02/21/20 atenolol 25 mg PO DAILY #30 tab 02/21/20 cholecalciferol (vitamin D3) 50 mcg PO DAILY #30 cap 02/21/20 [Vitamin D3] diphenhydramine HCl [Banophen] 25 mg PO BEDTIME #30 cap 02/21/20 metoclopramide HCl 10 mg PO QIDACHS PRN #15 tab 02/21/20 omeprazole 20 mg PO DAILY #30 cap 02/21/20 oxycodone 5 mg PO BID PRN #4 cap 02/21/20 tamsulosin 0.4 mg PO DAILY #30 cap 02/21/20 tizanidine 4 mg PO TID PRN #90 cap 02/21/20 verapamil 40 mg PO TID #90 tab 02/21/20 zolpidem 10 mg PO BEDTIME PRN #30 tab 02/21/20 ondansetron 4 mg disintegrating 4 mg TRANSLINGUAL DAILY PRN 30 02/29/20 tablet Days #30 tab oxycodone 5 mg PO TID PRN #4 cap 03/18/20 clonazepam [Klonopin] 1 mg PO TID #10 tab 03/19/20 Allergies Allergy/AdvReac Type Severity Reaction Status Date / Time trazodone [TRAZODONE] Allergy Severe FACIAL Verified 03/18/20 09:58 SWELLING, swelling cat dander [CATS] Allergy Intermediate FACIAL Verified 03/18/20 09:58 ITCHING doxepin [DOXEPIN] Allergy Intermediate WEIGHT Verified 03/18/20 09:58 GAIN/LEG SWELLING Iodinated Contrast Media Allergy Intermediate ITCHING Verified 03/18/20 09:58 [IV DYE, IODINE CONTAINING CONTRAST ] acetaminophen [Tylenol] Allergy Unknown stomach Verified 03/18/20 09:58 pain nitroglycerin [NITROGLYCERIN] Allergy Unknown UNKNOWN Verified 03/18/20 09:58 tramadol [TRAMADOL] Allergy Unknown UNKNOWN, Verified 03/18/20 09:58 dry mouth ibuprofen [From MOTRIN] AdvReac Intermediate GI UPSET Verified 03/18/20 09:58 quetiapine [From SEROQUEL] AdvReac Intermediate FACIAL Verified 03/18/20 09:58 SWELLING aspirin [ASPIRIN] AdvReac Mild Stomach Verified 03/18/20 09:58 Upset Ibuprofen Allergy Unknown stomach Uncoded 11/24/19 00:00 ache IV contrast Allergy Unknown Unknown Uncoded 02/14/20 21:12 Motrin Allergy Unknown stomach Uncoded 11/24/19 00:00 pain Review of Systems Review of Systems: Constitutional: No Fever, No Chills Cardiovascular: No Chest Pain, No SOB Respiratory: No Cough, No Sputum, No Wheezing, No dyspnea Gastrointestinal: No Nausea, No Vomiting, No Diarrhea, No abdominal Pain Musculoskeletal: No joint pain, No Myalgias Skin: No Skin Lesions, No rash Neuro: No Weakness, No Numbness, No Dizziness, No Headache Psych: + Anxiety/Panic, + Depression, no SI PMFSH Past Medical History Attestation statement: The following information was validated with the patient. Medical History Anxiety GERD (gastroesophageal reflux disease) Surgical History H/O umbilical hernia repair History of colonoscopy History of cystoscopy Family History Family History Father HTN (hypertension) Diabetes Mother HTN (hypertension) Stroke Alzheimer disease Heart disease Social History Social History Household Members: Friend(s) Housing: House Alcohol intake: never Smoking Status: Current every day smoker Tobacco Type: Cigarette Packs Per Day: 1 Cigarettes Per Day: 15 Years Smoked: 9 Second Hand Smoke Exposure: Yes Advance Directives: No Advance Directives Information Provided: No service: No Sexual orientation: Straight/Heterosexual Physical Exam Vital Signs: Vital Signs: Last Vital Signs Temp 97.2 F 03/19/20 09:01 Pulse 78 03/19/20 09:01 Resp 18 03/19/20 09:01 BP 102/77 03/19/20 09:01 Pulse Ox 98 03/19/20 09:01 Body Mass Index 23.3 Appearance: Alert. Oriented X3. No acute distress. HEENT: normal inspection CVS: Normal heart rate and rhythm. Pulses normal. Respiratory: No respiratory distress. Lung sounds CTABa Skin: Skin warm and dry. Normal skin color. Normal skin turgor. No rashes. Extremities: no LE edema, atraumatic Neuro: Oriented X 3. No motor deficit. No sensory deficit. Course Course Course Narrative: 49 yo male presenting with increased anxiety at home. Ran out of Klonopin which will get refilled by his PCP this week. He was counseled on the importance of medication compliance and agrees to take medication as presc ribed. Will give 3 day supply and patient will follow up with his provider this week. He has an appointment on Thursday. MDM - Anxiety Differential Diagnosis Differential diagnosis: Likely hyperventilation, panic disorder and acute anxiety Medical Records Attestation: I reviewed the patient's medical records. Critical Care Time Critical Care Time Critical Care Time: No Discharge Plan Discharge Clinical Impression: Acute anxiety Patient Disposition: Home, Self-Care Instructions: Generalized Anxiety Disorder (ED), Anxiolysis in Adults (ED) Additional Instructions: Take the prescribed anxiety medication as directed. Follow up with your doctor for re-fills of this medication. Prescriptions: New clonazepam [Klonopin] 1 mg tablet 1 mg PO TID Qty: 10 RF: 0 No Action lactulose 20 gram/30 mL solution 20 g PO DAILY 30 Days Qty: 900 RF: 3 simethicone [Gas Relief (simethicone)] 125 mg tablet,chewable 125 mg PO QID PRN (Reason: abdominal distention, gas) 30 Days Qty: 120 RF: 3 ondansetron 4 mg tablet,disintegrating 4 mg translingual DAILY PRN (Reason: nausea and vomiting) 30 Days Qty: 30 RF: 1 oxycodone 5 mg capsule 5 mg PO TID PRN (Reason: pain) Qty: 4 RF: 0 verapamil 40 mg tablet 40 mg PO TID Qty: 90 RF: 0 atenolol 25 mg tablet 25 mg PO DAILY Qty: 30 RF: 0 tamsulosin 0.4 mg capsule 0.4 mg PO DAILY Qty: 30 RF: 0 diphenhydramine HCl [Banophen] 25 mg capsule 25 mg PO BEDTIME Qty: 30 RF: 0 oxycodone 5 mg capsule 5 mg PO BID PRN (Reason: Pain) Qty: 4 RF: 0 omeprazole 20 mg capsule,delayed release(DR/EC) 20 mg PO DAILY Qty: 30 RF: 0 zolpidem 10 mg Tablet 10 mg PO BEDTIME PRN (Reason: Insomnia) Qty: 30 RF: 0 tizanidine 4 mg capsule 4 mg PO TID PRN (Reason: Muscle Pain) Qty: 90 RF: 0 cholecalciferol (vitamin D3) [Vitamin D3] 50 mcg (2,000 unit) capsule 50 mcg PO DAILY Qty: 30 RF: 0 albuterol sulfate [ProAir HFA] 90 mcg/actuation HFA aerosol inhaler 1 puff inhalation QID PRN (Reason: Shortness Of Breath Or Wheezing) Qty: 1 RF: 0 metoclopramide HCl 10 mg tablet 10 mg PO QIDACHS PRN (Reason: Nausea) Qty: 15 RF: 0 clonazepam [Klonopin] 1 mg tablet 1 mg PO TID RF: 0 Discharge Date/Time: 03/19/20 10:02
== END 2020-03-19 10:02 | disposition home or self-care (01) ==
PROVIDERS: Emergency Provider Emergency Medicine; PCP Internal Medicine
DX: F41.9 Anxiety disorder, unspecified (principal); I10 Essential (primary) hypertension; E11.9 Type 2 diabetes mellitus without complications; F17.210 Nicotine dependence, cigarettes, uncomplicated; Z79.899 Other long term (current) drug therapy; Z91.14 Patient's other noncompliance with medication regimen
CPT/HCPCS: 99283

== ENCOUNTER 2020-04-07 08:55 | Emergency (ER) | payer MEDICAID, SELFPAY ==
[2020-04-07 09:14] VITALS: BP 123/59; PULSE 53; PULSE 60; RESP 16; TEMP 37.1; O2SAT 100; O2SAT 95; BMI 24.5
--- NOTE | 2020-04-07 09:17 | XR_ITS ---
EXAMINATION: XR CHEST CLINICAL INFORMATION: Chest pain. Flulike symptoms. COMPARISON: 02/14/20. TECHNIQUE: Frontal view of the chest was obtained. FINDINGS: No significant abnormality is noted involving the heart, lungs, mediastinum, bony thorax or soft tissues. There is no focal consolidation. An old fracture of the right eighth rib is again demonstrated. Degenerative changes are noted in the left shoulder. XR/XR chest 1V IMPRESSION: Unremarkable examination. Clear lungs.
--- NOTE | 2020-04-07 09:17 | ECG_ITS ---
Test Reason : CHEST PAIN Blood Pressure : / mmHG Vent. Rate : 048 BPM Atrial Rate : 048 BPM P-R Int : 114 ms QRS Dur : 094 ms QT Int : 450 ms P-R-T Axes : 020 015 022 degrees QTc Int : 402 ms Sinus bradycardia Early repolarization Otherwise normal ECG When compared with ECG of 14-FEB-2020 21:16, Vent. rate has decreased BY 39 BPM QT has shortened Referred By: Christa Schaefer Electronically Signed By:VIKI PINEDO
--- NOTE | 2020-04-07 09:38 | ED.URI ---
HPI - URI/Sore Throat General Chief Complaint: Upper Respiratory Symptoms Stated Complaint: CP W/FLU SX X'S 3 DAYS Time Seen by Provider: 04/07/20 09:17 Source: patient and EMS Mode of arrival: EMS Limitations: no limitations History of Present Illness HPI Narrative: 50 y/o male with history of depression, HTN, esophageal stricture s/p balloon dilatation at [facility], [facility] (formerly [facility]) who presents to the ED with 6 days of flu-like symptoms including fever, chills, nausea, muscle aches, nausea, central chest pain, SOB, headaches. He recently traveled to [place] for the holidays and saw a lot of people. No confirmed or known sick contacts. He has been taking Tylenol at home without improvement. He reports his chest pain is central, non-radiating and constant for the last 6 days. Worse with coughing. No vomiting, abdominal pain, urinary symptoms. MD elicited complaint: fever, cough, sore throat and other (body aches) Onset (ago): day(s) (6) Consistency: constant and progressively worsening Severity: moderate Description of mucous: clear Able to tolerate fluids by mouth: Yes Exacerbating factors: nothing Relieving factors: nothing Context: recent travel Associated symptoms: fever, chills, myalgias, headache, nasal congestion, sore throat, cough, chest pain, shortness of breath and nausea Treatments prior to arrival: acetaminophen Related Data Home Medications Medication Instructions Recorded Confirmed clonazepam 1 mg tablet 1 mg PO TID 01/06/20 02/15/20 Previous Rx's Medication Instructions Recorded lactulose 20 gram/30 mL oral 20 g PO DAILY 30 Days #900 ml 02/10/20 solution simethicone 125 mg chewable tablet 125 mg PO QID PRN 30 Days #120 tab 02/10/20 albuterol sulfate [ProAir HFA] 1 puff INHALATION QID PRN #1 g 02/21/20 atenolol 25 mg PO DAILY #30 tab 02/21/20 cholecalciferol (vitamin D3) 50 mcg PO DAILY #30 cap 02/21/20 [Vitamin D3] diphenhydramine HCl [Banophen] 25 mg PO BEDTIME #30 cap 02/21/20 metoclopramide HCl 10 mg PO QIDACHS PRN #15 tab 02/21/20 omeprazole 20 mg PO DAILY #30 cap 02/21/20 oxycodone 5 mg PO BID PRN #4 cap 02/21/20 tamsulosin 0.4 mg PO DAILY #30 cap 02/21/20 tizanidine 4 mg PO TID PRN #90 cap 02/21/20 verapamil 40 mg PO TID #90 tab 02/21/20 zolpidem 10 mg PO BEDTIME PRN #30 tab 02/21/20 oxycodone 5 mg PO TID PRN #4 cap 03/18/20 clonazepam [Klonopin] 1 mg PO TID #10 tab 03/19/20 sennosides 8.6 mg tablet 8.6 - 17.2 mg PO BID PRN 30 Days 03/22/20 #90 tab ondansetron 4 mg disintegrating 4 mg TRANSLINGUAL DAILY PRN 30 04/05/20 tablet Days #30 tab lidocaine [Lidoderm] 1 patch TOPICAL DAILY #15 ea 04/07/20 prednisone 40 mg PO DAILY #10 tab 04/07/20 Allergies Allergy/AdvReac Type Severity Reaction Status Date / Time trazodone [TRAZODONE] Allergy Severe FACIAL Verified 04/07/20 09:20 SWELLING, swelling cat dander [CATS] Allergy Intermediate FACIAL Verified 04/07/20 09:20 ITCHING doxepin [DOXEPIN] Allergy Intermediate WEIGHT Verified 04/07/20 09:20 GAIN/LEG SWELLING Iodinated Contrast Media Allergy Intermediate ITCHING Verified 04/07/20 09:20 [IV DYE, IODINE CONTAINING CONTRAST ] nitroglycerin [NITROGLYCERIN] Allergy Unknown UNKNOWN Verified 04/07/20 09:20 tramadol [TRAMADOL] Allergy Unknown UNKNOWN, Verified 04/07/20 09:20 dry mouth ibuprofen [From MOTRIN] AdvReac Intermediate GI UPSET Verified 04/07/20 09:20 quetiapine [From SEROQUEL] AdvReac Intermediate FACIAL Verified 04/07/20 09:20 SWELLING aspirin [ASPIRIN] AdvReac Mild Stomach Verified 04/07/20 09:20 Upset Ibuprofen Allergy Unknown stomach Uncoded 04/07/20 09:20 ache IV contrast Allergy Unknown Unknown Uncoded 04/07/20 09:20 Motrin Allergy Unknown stomach Uncoded 04/07/20 09:20 pain Review of Systems Review of Systems: Constitutional: + Fever, + Chills ENT/Mouth: N+ sore throat, No Rhinorrhea, No Swallowing Difficulty Cardiovascular: + Chest Pain, + SOB, No Orthopnea, No Edema Respiratory: + Cough, No Sputum, No Wheezing, No dyspnea Gastrointestinal: + Nausea, No Vomiting, No Diarrhea, No abdominal Pain, No Hematochezia, No Melena Genitourinary: No Dysuria, No Urinary Frequency, No Hematuria Musculoskeletal: + joint pain, + Myalgias Skin: No Skin Lesions, No rash Neuro: + Weakness, No Numbness, No Dizziness, + Headache Psych: + Anxiety/Panic, No Depression Heme/Lymph: No Bruising, No Lymphadenopathy Endocrine: No Polyuria, No Polydipsia [facility] Past Medical History Attestation statement: The following information was validated with the patient. Medical History Anxiety GERD (gastroesophageal reflux disease) Surgical History H/O umbilical hernia repair History of colonoscopy History of cystoscopy Family History Family History Father HTN (hypertension) Diabetes Mother HTN (hypertension) Stroke Alzheimer disease Heart disease Social History Social History Household Members: Friend(s) Housing: House Alcohol intake: never Smoking Status: Current every day smoker Tobacco Type: Cigarette Packs Per Day: 1 Cigarettes Per Day: 15 Years Smoked: 9 Second Hand Smoke Exposure: Yes Use of substances other than those prescribed or required for medical reasons: No Advance Directives: No Advance Directives Information Provided: Yes service: No Sexual orientation: Straight/Heterosexual Physical Exam Vital Signs: Vital Signs: Last Vital Signs Temp 97.8 F 04/07/20 12:39 Pulse 51 04/07/20 12:39 Resp 16 04/07/20 12:39 BP 126/60 04/07/20 12:39 Pulse Ox 96 04/07/20 12:39 Body Mass Index 24.5 Appearance: Alert. Oriented X3. No acute distress. Eyes: Pupils equal, round and reactive to light. ENT: Pharynx with mild generalized erythema, no tonsillar edema or exudate. Neck: Normal inspection. Neck supple. CVS: Normal heart rate and rhythm. Pulses normal. Respiratory: No respiratory distress. Breath sounds normal. Abdomen: Soft and nontender. +BS x4 Skin: Skin warm and dry. Normal skin color. Normal skin turgor. No rashes. Extremities: No lower extremity edema. Neuro: Oriented X 3. No motor deficit. No sensory deficit. Course Course Course Narrative: 50 y/o male here with flu-like symptoms for the last 6 days after he traveled to [place] for the holidays. He appears well on arrival, bradycardia noted, asymptomatic. He is on atenolol at home and took it this morning. Will get full metabolic workup and test for COVID and the flu. Suspect viral etiology. Will r/o ACS with EKG and troponin. VSS with SpO2 100% on RA. Doubt PE. Reevaluation(s) Reevaluation #1: Labs so far showing no leukocytosis, normal renal function and lytes, negative troponin. DDIMER slightly elevated 288, likely related to viral syndrome, not PE. He has no risk factors aside from age. PERC score 1. Reevaluation #2: Resp Panel NEGATIVE including COVID and Flu. Will proceed with CTA chest to r/o PE given chest pain and SOB. He has received IV contrast before but has gotten a rash. He states he does fine when he is given Benadryl beforehand. Will give dose of medrol and benadryl. He is requesting something for pain, refusing tylenol. Not comfortable giving narcotic for probable musculoskeletal chest pain. His utox has been positive for opiates on every occasion. Solumedrol should help with the pain. Will reassess. Reevaluation #3: CTA negative for PE. He remains hemodyamically stable on room air, no hypoxia or SOB. He is stable for discharge. Patient counseled and all questions were answered. MDM - URI/Sore Throat Lab Data Attestation: I reviewed the patient's lab results. Result diagrams: 04/07/20 09:51 04/07/20 09:51 Labs: Lab Results 04/07/20 04/07/20 04/07/20 Range/Units 09:51 09:51 09:51 WBC 7.4 (4.8-10.8) X10*3/uL RBC 3.86 L (4.60-5.80) X10*6/uL Hgb 12.1 L (14.0-18.0) g/dl Hct 37.6 L (42-52) % MCV 97.4 (80-98) fL MCH 31.3 (27.0-33.0) pg MCHC 32.2 (31.0-36.0) g/dl RDW 13.8 (11.0-16.0) % Plt Count 201 (160-400) X10*3/uL MPV 10.6 (9.4-12.4) fL Immature Gran % (Auto) 0.4 (0.0-0.4) % Neut % (Auto) 72.6 (45-73) % Lymph % (Auto) 18.0 L (20-40) % [place] % (Auto) 5.3 (2-11) % Eos % (Auto) 3.3 (0-4) % Baso % (Auto) 0.4 (0-2) % Lymph # (Auto) 1.3 (1.2-4.9) X10*3/uL [place] # (Auto) 0.4 (0.1-1.2) X10*3/uL Eos # (Auto) 0.2 (0.0-0.4) X10*3/uL Baso # (Auto) 0.0 (0.0-0.2) X10*3/uL Abs Immat Gran (auto) 0.03 (0.00-0.03) X10*3/uL Absolute Neuts (auto) 5.4 (2.0-8.3) X10*3/uL Absolute Nucleated RBC 0.000 (0.0-0.012) X10*3/uL Nucleated RBC % (auto) 0.0 (0.0-0.2) /100WBC D-Dimer NG/ML Sodium 142 (135-145) mmol/L Potassium 3.6 (3.3-5.1) mmol/l Chloride 100 (96-108) mmol/L Carbon Dioxide 34 H (22-29) mmol/L Anion Gap 12 (12-20) BUN 5 L (9-16) mg/dL Creatinine 0.79 (0.5-1.4) mg/dL Estim Creat Clear Calc 95.1 Estimated GFR > 60 Random Glucose 106 (60-115) mg/dL Lactic Acid 0.8 (0.5-2.0) mmol/L Calcium 9.2 (8.4-10.2) mg/dL Magnesium 2.1 (1.6-2.6) mg/dL Total Bilirubin 0.2 (0.0-1.0) mg/dL Direct Bilirubin < 0.2 (0.0-0.5) mg/dL AST 17 (5-37) U/L ALT 12 (0-40) U/L Alkaline Phosphatase 64 (39-117) U/L Troponin I High Sens (<3.5-35.0) ng/L C-Reactive Protein (< or = 0.50) mg/dL Total Protein 7.1 (6.5-8.0) g/dL Albumin 4.2 (3.5-5.0) g/dL Procalcitonin ng/mL Urine Color Urine Appearance Urine pH (5.0-8.0) Ur Specific [place] (1.005-1.025) Urine Protein (NEG-TRACE) MG/DL Urine Glucose (UA) (NEG) MG/DL Urine Ketones (NEG) MG/DL Urine Blood (NEG) Urine Nitrite (NEG) Ur Leukocyte Esterase (NEG) Urine RBC (0) /HPF Urine WBC (0-4) /HPF Ur Squamous Epith Cells /LPF Urine Bacteria /LPF Coronavirus (PCR) (Negative) Influenza Type A (PCR) (Negative) Influenza Type B (PCR) (Negative) RSV RNA Qual (PCR) (Negative) 04/07/20 04/07/20 04/07/20 Range/Units 09:51 09:51 09:51 WBC (4.8-10.8) X10*3/uL RBC (4.60-5.80) X10*6/uL Hgb (14.0-18.0) g/dl Hct (42-52) % MCV (80-98) fL MCH (27.0-33.0) pg MCHC (31.0-36.0) g/dl RDW (11.0-16.0) % Plt Count (160-400) X10*3/uL MPV (9.4-12.4) fL Immature Gran % (Auto) (0.0-0.4) % Neut % (Auto) (45-73) % Lymph % (Auto) (20-40) % [place] % (Auto) (2-11) % Eos % (Auto) (0-4) % Baso % (Auto) (0-2) % Lymph # (Auto) (1.2-4.9) X10*3/uL [place] # (Auto) (0.1-1.2) X10*3/uL Eos # (Auto) (0.0-0.4) X10*3/uL Baso # (Auto) (0.0-0.2) X10*3/uL Abs Immat Gran (auto) (0.00-0.03) X10*3/uL Absolute Neuts (auto) (2.0-8.3) X10*3/uL Absolute Nucleated RBC (0.0-0.012) X10*3/uL Nucleated RBC % (auto) (0.0-0.2) /100WBC D-Dimer 288 NG/ML Sodium (135-145) mmol/L Potassium (3.3-5.1) mmol/l Chloride (96-108) mmol/L Carbon Dioxide (22-29) mmol/L Anion Gap (12-20) BUN (9-16) mg/dL Creatinine (0.5-1.4) mg/dL Estim Creat Clear Calc Estimated GFR Random Glucose (60-115) mg/dL Lactic Acid (0.5-2.0) mmol/L Calcium (8.4-10.2) mg/dL Magnesium (1.6-2.6) mg/dL Total Bilirubin (0.0-1.0) mg/dL Direct Bilirubin (0.0-0.5) mg/dL AST (5-37) U/L ALT (0-40) U/L Alkaline Phosphatase (39-117) U/L Troponin I High Sens < 3.5 (<3.5-35.0) ng/L C-Reactive Protein (< or = 0.50) mg/dL Total Protein (6.5-8.0) g/dL Albumin (3.5-5.0) g/dL Procalcitonin ng/mL Urine Color Urine Appearance Urine pH (5.0-8.0) Ur Specific [place] (1.005-1.025) Urine Protein (NEG-TRACE) MG/DL Urine Glucose (UA) (NEG) MG/DL Urine Ketones (NEG) MG/DL Urine Blood (NEG) Urine Nitrite (NEG) Ur Leukocyte Esterase (NEG) Urine RBC (0) /HPF Urine WBC (0-4) /HPF Ur Squamous Epith Cells /LPF Urine Bacteria /LPF Coronavirus (PCR) NEGATIVE (Negative) Influenza Type A (PCR) NEGATIVE (Negative) Influenza Type B (PCR) NEGATIVE (Negative) RSV RNA Qual (PCR) NEGATIVE (Negative) 04/07/20 04/07/20 04/07/20 Range/Units 09:51 09:51 13:24 WBC (4.8-10.8) X10*3/uL RBC (4.60-5.80) X10*6/uL Hgb (14.0-18.0) g/dl Hct (42-52) % MCV (80-98) fL MCH (27.0-33.0) pg MCHC (31.0-36.0) g/dl RDW (11.0-16.0) % Plt Count (160-400) X10*3/uL MPV (9.4-12.4) fL Immature Gran % (Auto) (0.0-0.4) % Neut % (Auto) (45-73) % Lymph % (Auto) (20-40) % [place] % (Auto) (2-11) % Eos % (Auto) (0-4) % Baso % (Auto) (0-2) % Lymph # (Auto) (1.2-4.9) X10*3/uL [place] # (Auto) (0.1-1.2) X10*3/uL Eos # (Auto) (0.0-0.4) X10*3/uL Baso # (Auto) (0.0-0.2) X10*3/uL Abs Immat Gran (auto) (0.00-0.03) X10*3/uL Absolute Neuts (auto) (2.0-8.3) X10*3/uL Absolute Nucleated RBC (0.0-0.012) X10*3/uL Nucleated RBC % (auto) (0.0-0.2) /100WBC D-Dimer NG/ML Sodium (135-145) mmol/L Potassium (3.3-5.1) mmol/l Chloride (96-108) mmol/L Carbon Dioxide (22-29) mmol/L Anion Gap (12-20) BUN (9-16) mg/dL Creatinine (0.5-1.4) mg/dL Estim Creat Clear Calc Estimated GFR Random Glucose (60-115) mg/dL Lactic Acid (0.5-2.0) mmol/L Calcium (8.4-10.2) mg/dL Magnesium (1.6-2.6) mg/dL Total Bilirubin (0.0-1.0) mg/dL Direct Bilirubin (0.0-0.5) mg/dL AST (5-37) U/L ALT (0-40) U/L Alkaline Phosphatase (39-117) U/L Troponin I High Sens (<3.5-35.0) ng/L C-Reactive Protein 0.36 (< or = 0.50) mg/dL Total Protein (6.5-8.0) g/dL Albumin (3.5-5.0) g/dL Procalcitonin 0.03 ng/mL Urine Color YELLOW Urine Appearance CLEAR Urine pH 6.0 (5.0-8.0) Ur Specific [place] <= 1.005 (1.005-1.025) Urine Protein NEG (NEG-TRACE) MG/DL Urine Glucose (UA) NEG (NEG) MG/DL Urine Ketones NEG (NEG) MG/DL Urine Blood TRACE (NEG) Urine Nitrite NEG (NEG) Ur Leukocyte Esterase NEG (NEG) Urine RBC 0-2 (0) /HPF Urine WBC 0 (0-4) /HPF Ur Squamous Epith Cells TRACE /LPF Urine Bacteria NONE /LPF Coronavirus (PCR) (Negative) Influenza Type A (PCR) (Negative) Influenza Type B (PCR) (Negative) RSV RNA Qual (PCR) (Negative) ECG Data Attestation: I personally reviewed and interpreted this ECG as follows: ECG interpretation date: 04/07/20 ECG interpretation time: 11:03 Prior ECG tracings: available for review Interpretation: sinus bradycardia, HR 48 BPM, normal [place] interval, t-wave inversion in lead III - unchanged from prior Jan 19, 2020 reviewed Discharge Plan Discharge Clinical Impression: Acute viral syndrome, Acute costochondritis Patient Disposition: Home, Self-Care Instructions: Costochondritis (ED), Viral Syndrome (ED) Additional Instructions: Your workup today was unremarkable. Your chest x-ray and CT scans were normal. Your blood work was normal. You were tested for COVID-19, Influenza and RSV - all were NEGATIVE. It is likely that your symptoms are due to another virus. Take the prescribed medication for your chest pain. Take Tylenol as needed for body aches and fevers, do not exceed 4,000 mg in 24 hours. Follow up with your doctor this week. If you develop worsening chest pain, difficulty breathing or any other concerning symptom come back to the ER for further evaluation. Prescriptions: New prednisone 20 mg tablet 40 mg PO DAILY Qty: 10 RF: 0 lidocaine [Lidoderm] 5 % adhesive patch,medicated 1 patch topical DAILY Qty: 15 RF: 0 No Action lactulose 20 gram/30 mL solution 20 g PO DAILY 30 Days Qty: 900 RF: 3 simethicone [Gas Relief (simethicone)] 125 mg tablet,chewable 125 mg PO QID PRN (Reason: abdominal distention, gas) 30 Days Qty: 120 RF: 3 sennosides [Senna Laxative] 8.6 mg tablet 8.6 - 17.2 mg PO BID PRN (Reason: constipation) 30 Days Qty: 90 RF: 0 ondansetron 4 mg tablet,disintegrating 4 mg translingual DAILY PRN (Reason: nausea and vomiting) 30 Days Qty: 30 RF: 1 oxycodone 5 mg capsule 5 mg PO TID PRN (Reason: pain) Qty: 4 RF: 0 verapamil 40 mg tablet 40 mg PO TID Qty: 90 RF: 0 atenolol 25 mg tablet 25 mg PO DAILY Qty: 30 RF: 0 tamsulosin 0.4 mg capsule 0.4 mg PO DAILY Qty: 30 RF: 0 diphenhydramine HCl [Banophen] 25 mg capsule 25 mg PO BEDTIME Qty: 30 RF: 0 oxycodone 5 mg capsule 5 mg PO BID PRN (Reason: Pain) Qty: 4 RF: 0 omeprazole 20 mg capsule,delayed release(DR/EC) 20 mg PO DAILY Qty: 30 RF: 0 zolpidem 10 mg Tablet 10 mg PO BEDTIME PRN (Reason: Insomnia) Qty: 30 RF: 0 tizanidine 4 mg capsule 4 mg PO TID PRN (Reason: Muscle Pain) Qty: 90 RF: 0 cholecalciferol (vitamin D3) [Vitamin D3] 50 mcg (2,000 unit) capsule 50 mcg PO DAILY Qty: 30 RF: 0 albuterol sulfate [ProAir HFA] 90 mcg/actuation HFA aerosol inhaler 1 puff inhalation QID PRN (Reason: Shortness Of Breath Or Wheezing) Qty: 1 RF: 0 metoclopramide HCl 10 mg tablet 10 mg PO QIDACHS PRN (Reason: Nausea) Qty: 15 RF: 0 clonazepam [Klonopin] 1 mg tablet 1 mg PO TID Qty: 10 RF: 0 clonazepam [Klonopin] 1 mg tablet 1 mg PO TID RF: 0
[2020-04-07 09:55] VITALS: PULSE 49; O2SAT 100
[2020-04-07 09:59] VITALS: PULSE 46; RESP 16; O2SAT 100
[2020-04-07] MEDS: 0.9 % Sodium Chloride 1,000 ML 999 ML IVCONT (09:59)
[2020-04-07 10:04] LABS: Basophils Percent Auto 0.4 % (0-2); Eosinophils Absolute Auto 0.2 X10*3/uL (0.0-0.4); Eosinophils Percent Auto 3.3 % (0-4); Hematocrit 37.6 % (42-52); Hemoglobin 12.1 g/dl (14.0-18.0); Imm Gran Abs Auto 0.03 X10*3/uL (0.00-0.03); Imm Gran Pct Auto 0.4 % (0.0-0.4); Lymphocytes Absolute Auto 1.3 X10*3/uL (1.2-4.9); MANUAL DIFF FLAG NO; Mean Corpuscular HGB Conc 32.2 g/dl (31.0-36.0); Mean Corpuscular Hemoglobin 31.3 pg (27.0-33.0); Mean Corpuscular Volume 97.4 fL (80-98); Mean Platelet Volume 10.6 fL (9.4-12.4); Monocytes Absolute Auto 0.4 X10*3/uL (0.1-1.2); Monocytes Percent Auto 5.3 % (2-11); Neutrophils Absolute Auto 5.4 X10*3/uL (2.0-8.3); Neutrophils Percent Auto 72.6 % (45-73); Platelet Count 201 X10*3/uL (160-400); Red Blood Count 3.86 X10*6/uL (4.60-5.80); Red Cell Distribution Width 13.8 % (11.0-16.0); White Blood Count 7.4 X10*3/uL (4.8-10.8)
[2020-04-07 10:12] LABS: D Dimer 288 NG/ML
[2020-04-07 10:39] LABS: Lactic Acid 0.8 mmol/L (0.5-2.0)
[2020-04-07 10:41] LABS: C Reactive Protein 0.36 mg/dL (< or = 0.50)
[2020-04-07 10:43] LABS: Alanine Aminotransferase 12 U/L (0-40); Albumin Level 4.2 g/dL (3.5-5.0); Alkaline Phosphatase 64 U/L (39-117); Anion Gap 12 (12-20); Aspartate Amino Transferase 17 U/L (5-37); Bilirubin Direct < 0.2 mg/dL (0.0-0.5); Bilirubin Total 0.2 mg/dL (0.0-1.0); Blood Urea Nitrogen 5 mg/dL (9-16); Calcium 9.2 mg/dL (8.4-10.2); Carbon Dioxide 34 mmol/L (22-29); Chloride 100 mmol/L (96-108); Creatinine Clr Calc Pharmacy 95.1; Estimated Glomerular Filt Rate > 60; Glucose Random 106 mg/dL (60-115); Magnesium 2.1 mg/dL (1.6-2.6); Potassium 3.6 mmol/l (3.3-5.1); Sodium 142 mmol/L (135-145); Total Protein 7.1 g/dL (6.5-8.0)
[2020-04-07 10:51] LABS: Troponin-I High Sensitivity < 3.5 ng/L (<3.5-35.0)
[2020-04-07 11:12] LABS: Procalcitonin 0.03 ng/mL
[2020-04-07 11:16] LABS: Influenza A PCR NEGATIVE (Negative); Influenza B PCR NEGATIVE (Negative); Resp Syncy Virus RNA Qual PCR NEGATIVE (Negative); SARS COV2 PCR INHOUSE NEGATIVE (Negative)
[2020-04-07 11:43] VITALS: BP 127/69; PULSE 55; RESP 14; TEMP 37.1; O2SAT 98
--- NOTE | 2020-04-07 11:46 | CT_ITS ---
EXAMINATION: CT ANGIOGRAM OF THE CHEST WITH AND WITHOUT CONTRAST (CT PULMONARY ANGIOGRAM FOR PE) CLINICAL INFORMATION: Reason for Exam chest pain, SOB with elevated DDIMER COMPARISON: CT of the abdomen and pelvis done on 03/08/2020. TECHNIQUE: Prior to contrast administration, noncontrast localization images were obtained. Subsequently, multidetector volumetric imaging was performed from the thoracic inlet to below the diaphragms following the administration of 65.2 mL Omnipaque 350 intravenous contrast. No contrast reaction reported Sagittal, coronal, and MIP oblique sagittal reformatted images were obtained on the CT workstation, uploaded to PACS, and reviewed. This CT examination was performed using dose optimization techniques as appropriate, variously including the following: *Automated exposure control *Adjustment of mA and/or kV according to patient size (this includes techniques or standardized protocols for targeted exams where dose is matched to indication/reason for exam; i.e. extremities or head) *Use of iterative reconstruction technique Total exam dose-length product 215.0 mGy-cm FINDINGS: QUALITY OF STUDY/CONTRAST BOLUS: Satisfactory. PULMONARY ARTERIES: No central or segmental pulmonary emboli. THORACIC AORTA: No aneurysm or dissection. LUNG: No focal consolidation, nodules or masses. PLEURA: No evidence of any pleural effusion or pneumothorax. MEDIASTINUM: Normal heart size. No pericardial effusion. No hilar or mediastinal lymphadenopathy. No evidence of septal bowing or right heart strain. Coronary arterial atherosclerotic disease is present. CHEST WALL/AXILLA: No axillary or internal mammary lymphadenopathy. OSSEOUS STRUCTURES: No acute or suspicious osseous abnormality. UPPER ABDOMEN: 3.0 cm maximum dimension exophytic cortical renal cyst is noted at the left kidney, unchanged since 03/08/2020. Small sliding hiatal hernia. No reflux of contrast into the hepatic veins to suggest elevated right heart pressures. CT/CT angio chest PE protocol IMPRESSION: 1. No CT evidence of pulmonary thromboembolism. 2. Bilateral clear lung short. 3. Small sliding hiatal hernia. VTE: Negative.
[2020-04-07] MEDS: ondansetron HCL 4 MG/2 ML VIAL IVPUSH (12:19)
--- NOTE | 2020-04-07 12:38 | PC.NURSE ---
resting quietly. states he had body aches and is medicated for such. skin pwd. unlabored resp. spking full sentences. awaits ct. asking to stay inthe hospital but aware that disposition is result dependent. SB on monitor.
[2020-04-07 12:39] VITALS: BP 126/60; PULSE 51; RESP 16; TEMP 36.6; O2SAT 96
[2020-04-07] MEDS: Butalb/Acetamin/Caff 50/325/40 TABLET 1 TAB PO (12:46)
[2020-04-07] MEDS: methylPREDNISolone Sod Succ/PF 125 MG/2 ML VIAL 80 MG IVPUSH (12:47)
[2020-04-07] MEDS: diphenhydrAMINE HCL 50 MG/ML VIAL IVPUSH (12:47)
[2020-04-07 13:47] LABS: Glucose Urine UA NEG (NEG); Leukocyte Esterase Urine NEG (NEG); Nitrite Urine NEG (NEG); Specific Gravity - Urine <= 1.005 (1.005-1.025); Urine Blood TRACE (NEG); Urine Ketones NEG (NEG); Urine Protein NEG (NEG-TRACE)
[2020-04-07 13:51] LABS: Appearance Urine CLEAR; Color Urine YELLOW
[2020-04-07 14:00] VITALS: BP 132/66; PULSE 55; RESP 14; TEMP 36.6; O2SAT 99
[2020-04-07 14:00] LABS: RBC Urine 0-2 /HPF (0); Squamous Epithelial Cell Urine TRACE /LPF; WBC Urine 0 /HPF (0-4)
[2020-04-07] MEDS: iohexoL 350 MG/ML 100 ML INFUS..BTL IV (14:07)
== END 2020-04-07 15:00 | disposition home or self-care (01) ==
PROVIDERS: Physician Assistant; Emergency Provider Emergency Medicine
DX: B34.9 Viral infection, unspecified (principal); Z20.828 Contact with and (suspected) exposure to other viral communicable diseases; R07.89 Other chest pain; I10 Essential (primary) hypertension; F17.210 Nicotine dependence, cigarettes, uncomplicated
CPT/HCPCS: 0241U; 36415; 71045; 71275; 80048; 80076; 81001; 83605; 83735; 84145; 84484; 85025; 85379; 86140; 87040; 93005; 96361; 96374; 96375; 99285; J1200; J2405; J2930; Q9967

== ENCOUNTER 2020-04-24 07:32 | Emergency (ER) | payer MEDICAID, SELFPAY ==
[2020-04-24 07:39] VITALS: BP 130/88; PULSE 84; RESP 18; TEMP 37.2; O2SAT 98; BMI 23.1
--- NOTE | 2020-04-24 07:50 | ED_ITS ---
HPI - General Adult General Chief complaint: Nausea/Vomiting/Diarrhea Stated complaint: BODYACHES,CP,FEVER LAST NIGHT, ?COVID Time Seen by Provider: 04/24/20 07:50 Source: patient Mode of arrival: EMS Limitations: no limitations History of Present Illness HPI narrative: Patient with headache, chills, NVD after exposure to COVID. Patient complaining mostly of diffuse myalgias Onset (ago): day(s) Location: head, chest, back, abdomen, upper extremity and lower extremity Severity: moderate Quality: aching Pain Consistency: constant Relieving factors: none Exacerbating factors: none Associated symptoms: fever/chills and nausea/vomiting Related Data Home Medications Medication Instructions Recorded Confirmed clonazepam 1 mg tablet 1 mg PO TID 01/06/20 02/15/20 Previous Rx's Medication Instructions Recorded lactulose 20 gram/30 mL oral 20 g PO DAILY 30 Days #900 ml 02/10/20 solution simethicone 125 mg chewable tablet 125 mg PO QID PRN 30 Days #120 tab 02/10/20 albuterol sulfate [ProAir HFA] 1 puff INHALATION QID PRN #1 g 02/21/20 atenolol 25 mg PO DAILY #30 tab 02/21/20 cholecalciferol (vitamin D3) 50 mcg PO DAILY #30 cap 02/21/20 [Vitamin D3] diphenhydramine HCl [Banophen] 25 mg PO BEDTIME #30 cap 02/21/20 metoclopramide HCl 10 mg PO QIDACHS PRN #15 tab 02/21/20 omeprazole 20 mg PO DAILY #30 cap 02/21/20 oxycodone 5 mg PO BID PRN #4 cap 02/21/20 tamsulosin 0.4 mg PO DAILY #30 cap 02/21/20 tizanidine 4 mg PO TID PRN #90 cap 02/21/20 verapamil 40 mg PO TID #90 tab 02/21/20 zolpidem 10 mg PO BEDTIME PRN #30 tab 02/21/20 oxycodone 5 mg PO TID PRN #4 cap 03/18/20 clonazepam [Klonopin] 1 mg PO TID #10 tab 03/19/20 sennosides 8.6 mg tablet 8.6 - 17.2 mg PO BID PRN 30 Days 03/22/20 #90 tab ondansetron 4 mg disintegrating 4 mg TRANSLINGUAL DAILY PRN 30 04/05/20 tablet Days #30 tab lidocaine [Lidoderm] 1 patch TOPICAL DAILY #15 ea 04/07/20 prednisone 40 mg PO DAILY #10 tab 04/07/20 naproxen [Naprosyn] 500 mg PO BID #20 tab 04/24/20 Allergies Allergy/AdvReac Type Severity Reaction Status Date / Time trazodone [TRAZODONE] Allergy Severe FACIAL Verified 04/07/20 09:20 SWELLING, swelling cat dander [CATS] Allergy Intermediate FACIAL Verified 04/07/20 09:20 ITCHING doxepin [DOXEPIN] Allergy Intermediate WEIGHT Verified 04/07/20 09:20 GAIN/LEG SWELLING Iodinated Contrast Media Allergy Intermediate ITCHING Verified 04/07/20 09:20 [IV DYE, IODINE CONTAINING CONTRAST ] nitroglycerin [NITROGLYCERIN] Allergy Unknown UNKNOWN Verified 04/07/20 09:20 tramadol [TRAMADOL] Allergy Unknown UNKNOWN, Verified 04/07/20 09:20 dry mouth ibuprofen [From MOTRIN] AdvReac Intermediate GI UPSET Verified 04/07/20 09:20 quetiapine [From SEROQUEL] AdvReac Intermediate FACIAL Verified 04/07/20 09:20 SWELLING aspirin [ASPIRIN] AdvReac Mild Stomach Verified 04/07/20 09:20 Upset Ibuprofen Allergy Unknown stomach Uncoded 04/07/20 09:20 ache IV contrast Allergy Unknown Unknown Uncoded 04/07/20 09:20 Motrin Allergy Unknown stomach Uncoded 04/07/20 09:20 pain Review of Systems Constitutional: Constitutional: Reports no additional constitutional complaints Eyes: Eyes: Reports no additional eye complaints ENT: Denies dizziness Cardiovascular: Cardiovascular: Reports no additional cardiovascular complaints Respiratory: Respiratory: Reports as per HPI Gastrointestinal: Gastrointestinal: Reports no additional gastrointestinal complaints Musculoskeletal: Musculoskeletal: Reports no additional musculoskeletal complaints Integumentary/Breasts: Skin/Breast: Denies rash Neurologic: Reports system reviewed and no additional complaints, except as documented, Denies dizziness and Denies Sensory deficit (Neuro) Psychiatric: Psychiatric: Denies anxiety PMFSH Past Medical History Medical History Anxiety GERD (gastroesophageal reflux disease) Surgical History H/O umbilical hernia repair History of colonoscopy History of cystoscopy Family History Family History Father HTN (hypertension) Diabetes Mother HTN (hypertension) Stroke Alzheimer disease Heart disease Social History Social History Household Members: Friend(s) Housing: House Alcohol intake: never Smoking Status: Current every day smoker Tobacco Type: Cigarette Packs Per Day: 1 Cigarettes Per Day: 15 Years Smoked: 9 Second Hand Smoke Exposure: Yes Advance Directives: Yes Advance Directives on File: Yes Advance Directives Date on File: 02/24/20 service: No Sexual orientation: Straight/Heterosexual Physical Exam Vital Signs: Vital Signs: Last Vital Signs Temp 98.9 F 04/24/20 07:39 Pulse 84 04/24/20 07:39 Resp 18 04/24/20 07:39 BP 130/88 04/24/20 07:39 Pulse Ox 98 04/24/20 07:39 Body Mass Index 23.1 Const: General: healthy appearing Nutritional Appearance: average body habitus Orientation/consciousness: oriented to person and patient oriented x3 Limitations: no limitations HENMT: Head: Yes normal to inspection Ears: external ears normal General nose exam: Normal external nose present Mouth: Normal oral and palatal mucosa present and oropharynx normal Throat: Yes posterior oropharynx normal Eyes: General: appearance normal, both eyes and all related structures Neck: Other: supple Neck: Yes normal visual inspection Chest: Chest palpation & inspection: normal inspection of the chest Resp: Auscultation: clear to auscultation bilaterally Cardio: Jugular venous distension: no JVD Rate: regular rate Rhythm: regular rhythm Heart sounds: S1 normal heart sound present and S2 normal heart sound present GI: Inspection: Yes normal to inspection Palpation (GI): Soft to palpation, nontender and No hepatosplenomegaly present Auscultation: normal bowel sounds : General: Yes no CVA tenderness Back/Spine/Pelvis: Back: no CVA tenderness Skin: General skin exam: no rashes or lesions noted Neuro: General: oriented to person and patient oriented x3 Cranial nerves: Yes CN's II-XII intact bilaterally Motor exam (neuro): 5/5 motor strength present throughout Sensory Exam: No Sensory deficit (Neuro) Extrem: General: Yes normal to inspection Psych: Appearance: grossly normal Course Course Course Narrative: Patient complaining of diffuse pain out of proportion will dc home on NSAIDs Medical Decision Making MDM Narrative Medical decision making narrative: COVID exposure with myalgias and headache. Rapid screen negative will put on Covid precautions Lab Data Labs: Lab Results 04/24/20 Range/Units 08:18 COVID-19 (ERIN) Negative (Negative) COVID-19 Clin Com See Note Discharge Plan Discharge Clinical Impression: COVID-19 Patient Disposition: Home, Self-Care Instructions: COVID-19 (Coronavirus Disease 2019) (ED) Prescriptions: New naproxen [Naprosyn] 500 mg tablet 500 mg PO BID Qty: 20 RF: 0 No Action lactulose 20 gram/30 mL solution 20 g PO DAILY 30 Days Qty: 900 RF: 3 simethicone [Gas Relief (simethicone)] 125 mg tablet,chewable 125 mg PO QID PRN (Reason: abdominal distention, gas) 30 Days Qty: 120 RF: 3 sennosides [Senna Laxative] 8.6 mg tablet 8.6 - 17.2 mg PO BID PRN (Reason: constipation) 30 Days Qty: 90 RF: 0 ondansetron 4 mg tablet,disintegrating 4 mg translingual DAILY PRN (Reason: nausea and vomiting) 30 Days Qty: 30 RF: 1 oxycodone 5 mg capsule 5 mg PO TID PRN (Reason: pain) Qty: 4 RF: 0 verapamil 40 mg tablet 40 mg PO TID Qty: 90 RF: 0 atenolol 25 mg tablet 25 mg PO DAILY Qty: 30 RF: 0 tamsulosin 0.4 mg capsule 0.4 mg PO DAILY Qty: 30 RF: 0 diphenhydramine HCl [Banophen] 25 mg capsule 25 mg PO BEDTIME Qty: 30 RF: 0 oxycodone 5 mg capsule 5 mg PO BID PRN (Reason: Pain) Qty: 4 RF: 0 omeprazole 20 mg capsule,delayed release(DR/EC) 20 mg PO DAILY Qty: 30 RF: 0 zolpidem 10 mg Tablet 10 mg PO BEDTIME PRN (Reason: Insomnia) Qty: 30 RF: 0 tizanidine 4 mg capsule 4 mg PO TID PRN (Reason: Muscle Pain) Qty: 90 RF: 0 cholecalciferol (vitamin D3) [Vitamin D3] 50 mcg (2,000 unit) capsule 50 mcg PO DAILY Qty: 30 RF: 0 albuterol sulfate [ProAir HFA] 90 mcg/actuation HFA aerosol inhaler 1 puff inhalation QID PRN (Reason: Shortness Of Breath Or Wheezing) Qty: 1 RF: 0 metoclopramide HCl 10 mg tablet 10 mg PO QIDACHS PRN (Reason: Nausea) Qty: 15 RF: 0 clonazepam [Klonopin] 1 mg tablet 1 mg PO TID Qty: 10 RF: 0 prednisone 20 mg tablet 40 mg PO DAILY Qty: 10 RF: 0 lidocaine [Lidoderm] 5 % adhesive patch,medicated 1 patch topical DAILY Qty: 15 RF: 0 clonazepam [Klonopin] 1 mg tablet 1 mg PO TID RF: 0 Referrals: [facility] [Primary Care Provider] - 2 days
[2020-04-24] MEDS: Ketorolac Tromethamine 30 MG/ML VIAL IVPUSH (08:14)
[2020-04-24] MEDS: 0.9 % Sodium Chloride 1,000 ML 999 ML IVCONT (08:38)
[2020-04-24 09:00] LABS: COVID-19 Test Negative (Negative); IDNOW Serial# 9DD0AD1C
== END 2020-04-24 09:45 | disposition home or self-care (01) ==
PROVIDERS: Emergency Provider Emergency Medicine
DX: M79.10 Myalgia, unspecified site (principal); Z20.822 Contact with and (suspected) exposure to COVID-19; R51.9 Headache, unspecified; R11.2 Nausea with vomiting, unspecified; F17.210 Nicotine dependence, cigarettes, uncomplicated
CPT/HCPCS: 36415; 87635; 96361; 96374; 99283; J1885

== ENCOUNTER → 2020-04-25 15:22 | Outpatient (BNVA) | payer MEDICAID, SELFPAY | PROVIDERS: PCP Internal Medicine; Visit Provider Internal Medicine Gastroenterology ==

== ENCOUNTER 2020-05-15 09:38 | Outpatient (REF) | payer MEDICAID, SELFPAY ==
[2020-05-15 10:55] LABS: MANUAL DIFF FLAG NO
[2020-05-15 11:04] LABS: Basophils Percent Auto 0.5 % (0-2); Eosinophils Absolute Auto 0.2 X10*3/uL (0.0-0.4); Eosinophils Percent Auto 3.5 % (0-4); Hematocrit 39.4 % (42-52); Hemoglobin 12.5 g/dl (14.0-18.0); Imm Gran Abs Auto 0.02 X10*3/uL (0.00-0.03); Imm Gran Pct Auto 0.3 % (0.0-0.4); Lymphocytes Absolute Auto 1.2 X10*3/uL (1.2-4.9); Lymphocytes Percent Auto 19.9 % (20-40); Mean Corpuscular HGB Conc 31.7 g/dl (31.0-36.0); Mean Corpuscular Hemoglobin 30.8 pg (27.0-33.0); Mean Platelet Volume 10.2 fL (9.4-12.4); Monocytes Absolute Auto 0.4 X10*3/uL (0.1-1.2); Monocytes Percent Auto 5.9 % (2-11); Neutrophils Absolute Auto 4.1 X10*3/uL (2.0-8.3); Neutrophils Percent Auto 69.9 % (45-73); Platelet Count 217 X10*3/uL (160-400); Red Blood Count 4.06 X10*6/uL (4.60-5.80); Red Cell Distribution Width 13.7 % (11.0-16.0); White Blood Count 5.9 X10*3/uL (4.8-10.8)
[2020-05-15 11:33] LABS: Alanine Aminotransferase 13 U/L (0-40); Albumin Level 4.3 g/dL (3.5-5.0); Alkaline Phosphatase 85 U/L (39-117); Anion Gap 14 (12-20); Aspartate Amino Transferase 16 U/L (5-37); Bilirubin Total 0.3 mg/dL (0.0-1.0); Blood Urea Nitrogen 5 mg/dL (9-16); C Reactive Protein 1.07 mg/dL (< or = 0.50); Calcium 9.1 mg/dL (8.4-10.2); Carbon Dioxide 32 mmol/L (22-29); Chloride 99 mmol/L (96-108); Estimated Glomerular Filt Rate > 60; Gamma Glutamyl Transpeptidase 51 U/L (11-51); Glucose Random 115 mg/dL (60-115); Magnesium 2.1 mg/dL (1.6-2.6); Potassium 4.3 mmol/L (3.3-5.1); Sodium 141 mmol/L (135-145); Total Protein 7.3 g/dL (6.5-8.0)
[2020-05-15 11:44] LABS: TSH reflex Free T4 1.38 uIU/mL (0.32-4.0)
[2020-05-16 08:38] LABS: SARS COV2 IgG Negative (Negative)
[2020-05-17 12:27] LABS: Transglutaminase IgA 1 U/mL
[2020-05-20 13:16] LABS: Vitamin B1 6 nmol/L (8-30)
== END 2020-05-15 09:39 | disposition home or self-care (01) ==
LOC: HO.LAB 09:38
PROVIDERS: PCP Internal Medicine; Visit Provider Internal Medicine Gastroenterology
DX: R63.4 Abnormal weight loss (principal); R07.9 Chest pain, unspecified; Z01.84 Encounter for antibody response examination
CPT/HCPCS: 36415; 80053; 82977; 83516; 83735; 84425; 84443; 85025; 86140; 86769

== ENCOUNTER 2020-05-22 06:56 | Emergency (ER) | payer MEDICAID, SELFPAY ==
[2020-05-22] VITALS (10 sets, daily range): BP systolic 96–129; BP diastolic 54–82; PULSE 61–75; RESP 16–18; TEMP 36.4–37.2; O2SAT 96–98; BMI 22.6
--- NOTE | 2020-05-22 07:30 | ED.PSYCH ---
HPI - Psych General Chief Complaint: Psychiatric Symptoms <Keyshawn Aragon MD - Last Filed: 05/22/20 12:18> Stated Complaint: crisis eval <Keyshawn Aragon MD - Last Filed: 05/22/20 12:18> Time Seen by Provider: 05/22/20 07:30 <Keyshawn Aragon MD - Last Filed: 05/22/20 12:18> Source: patient <Keyshawn Aragon MD - Last Filed: 05/22/20 12:18> Mode of arrival: EMS <Keyshawn Aragon MD - Last Filed: 05/22/20 12:18> Limitations: no limitations <Keyshawn Aragon MD - Last Filed: 05/22/20 12:18> History of Present Illness HPI Narrative: patient hearing voices and wants to kill himself <Keyshawn Aragon MD - Last Filed: 05/22/20 12:18> MD complaint: suicidal ideation and feels depressed <Keyshawn Aragon MD - Last Filed: 05/22/20 12:18> Onset (ago): week(s) <Keyshawn Aragon MD - Last Filed: 05/22/20 12:18> Duration: constant <Keyshawn Aragon MD - Last Filed: 05/22/20 12:18> History of same: Yes <Keyshawn Aragon MD - Last Filed: 05/22/20 12:18> Context: not taking psychiatric medications <Keyshawn Aragon MD - Last Filed: 05/22/20 12:18> If self harm: has plan <Keyshawn Aragon MD - Last Filed: 05/22/20 12:18> Details of plan: stabbing himself with a knife, jumping out 3rd floor window <Keyshawn Aragon MD - Last Filed: 05/22/20 12:18> Related Data Home Medications: Home Medications Medication Instructions Recorded Confirmed clonazepam 1 mg tablet 1 mg PO BID tab 04/25/20 05/22/20 divalproex 250 mg tablet,delayed 250 mg PO DAILY tab 04/25/20 05/22/20 release haloperidol 1 mg tablet 1 mg PO BID PRN 04/25/20 05/22/20 amitriptyline 25 mg tablet 100 mg PO BEDTIME tab 04/26/20 05/22/20 aripiprazole 1 tab PO DAILY 05/22/20 05/22/20 clonidine HCl 1 tab PO BEDTIME 05/22/20 05/22/20 lactulose 20 g PO DAILY PRN 05/22/20 05/22/20 loperamide [Anti-Diarrheal 1 tab PO QID PRN 05/22/20 05/22/20 (loperamide)] mirtazapine 1 tab PO BEDTIME 05/22/20 05/22/20 ondansetron 1 tab PO DAILY PRN 05/22/20 05/22/20 Previous Rx's Medication Instructions Recorded simethicone 125 mg chewable tablet 125 mg PO QID PRN 30 Days #120 tab 02/10/20 albuterol sulfate [ProAir HFA] 1 puff INHALATION QID PRN #1 g 02/21/20 atenolol 25 mg PO DAILY #30 tab 02/21/20 omeprazole 20 mg PO DAILY #30 cap 02/21/20 tamsulosin 0.4 mg PO DAILY #30 cap 02/21/20 zolpidem 10 mg PO BEDTIME PRN #30 tab 02/21/20 sennosides 8.6 mg tablet 8.6 - 17.2 mg PO BID PRN 30 Days 03/22/20 #90 tab <Keyshawn Aragon MD - Last Filed: 05/22/20 12:18> Allergies/Adverse Reactions: Allergies Allergy/AdvReac Type Severity Reaction Status Date / Time trazodone [TRAZODONE] Allergy Severe FACIAL Verified 04/07/20 09:20 SWELLING, swelling cat dander [CATS] Allergy Intermediate FACIAL Verified 04/07/20 09:20 ITCHING doxepin [DOXEPIN] Allergy Intermediate WEIGHT Verified 04/07/20 09:20 GAIN/LEG SWELLING Iodinated Contrast Media Allergy Intermediate ITCHING Verified 04/07/20 09:20 [IV DYE, IODINE CONTAINING CONTRAST ] nitroglycerin [NITROGLYCERIN] Allergy Unknown UNKNOWN Verified 04/07/20 09:20 tramadol [TRAMADOL] Allergy Unknown UNKNOWN, Verified 04/07/20 09:20 dry mouth ibuprofen [From MOTRIN] AdvReac Intermediate GI UPSET Verified 04/07/20 09:20 quetiapine [From SEROQUEL] AdvReac Intermediate FACIAL Verified 04/07/20 09:20 SWELLING aspirin [ASPIRIN] AdvReac Mild Stomach Verified 04/07/20 09:20 Upset Ibuprofen Allergy Unknown stomach Uncoded 04/07/20 09:20 ache IV contrast Allergy Unknown Unknown Uncoded 04/07/20 09:20 Motrin Allergy Unknown stomach Uncoded 04/07/20 09:20 pain <Keyshawn Aragon MD - Last Filed: 05/22/20 12:18> Review of Systems Constitutional: Constitutional: Reports no additional constitutional complaints <Keyshawn Aragon MD - Last Filed: 05/22/20 12:18> Eyes: Eyes: Reports no additional eye complaints <Keyshawn Aragon MD - Last Filed: 05/22/20 12:18> ENT: Denies dizziness <Keyshawn Aragon MD - Last Filed: 05/22/20 12:18> Cardiovascular: Cardiovascular: Reports no additional cardiovascular complaints <Keyshawn Aragon MD - Last Filed: 05/22/20 12:18> Respiratory: Respiratory: Reports as per HPI <Keyshawn Aragon MD - Last Filed: 05/22/20 12:18> Gastrointestinal: Gastrointestinal: Reports no additional gastrointestinal complaints <Keyshawn Aragon MD - Last Filed: 05/22/20 12:18> Musculoskeletal: Musculoskeletal: Reports no additional musculoskeletal complaints <Keyshawn Aragon MD - Last Filed: 05/22/20 12:18> Integumentary/Breasts: Skin/Breast: Denies rash <Keyshawn Aragon MD - Last Filed: 05/22/20 12:18> Neurologic: Reports system reviewed and no additional complaints, except as documented, Denies dizziness and Denies Sensory deficit (Neuro) <Keyshawn Aragon MD - Last Filed: 05/22/20 12:18> Psychiatric: Psychiatric: Denies anxiety <Keyshawn Aragon MD - Last Filed: 05/22/20 12:18> PMFSH Past Medical History Medical History: Medical History Anxiety Chest pain Dysphagia GERD (gastroesophageal reflux disease) Weight loss <Keyshawn Aragon MD - Last Filed: 05/22/20 12:18> Surgical History: Surgical History H/O umbilical hernia repair History of colonoscopy History of cystoscopy <Keyshawn Aragon MD - Last Filed: 05/22/20 12:18> Family History Family History: Family History Father HTN (hypertension) Diabetes Mother HTN (hypertension) Stroke Alzheimer disease Heart disease <Keyshawn Aragon MD - Last Filed: 05/22/20 12:18> Social History Social History: Social History Household Members: Friend(s) Housing: House Alcohol intake: unknown Smoking Status: Unknown if ever smoked Tobacco Type: Cigarette Packs Per Day: 1 Cigarettes Per Day: 15 Years Smoked: 9 Second Hand Smoke Exposure: Yes Use of substances other than those prescribed or required for medical reasons: Refusing to respond Advance Directives: Yes Advance Directives on File: Yes Advance Directives Date on File: 02/24/20 service: No Sexual orientation: Straight/Heterosexual <Keyshawn Aragon MD - Last Filed: 05/22/20 12:18> Physical Exam Vital Signs: Vital Signs: Last Vital Signs Temp 97.9 F 05/22/20 22:33 Pulse 62 05/22/20 22:33 Resp 18 05/22/20 22:33 BP 96/54 L 05/22/20 22:33 Pulse Ox 96 05/22/20 22:33 Body Mass Index 22.6 <Keyshawn Aragon MD - Last Filed: 05/22/20 12:18> Vital Signs: Last Vital Signs Temp 97.9 F 05/22/20 22:33 Pulse 62 05/22/20 22:33 Resp 18 05/22/20 22:33 BP 96/54 L 05/22/20 22:33 Pulse Ox 96 05/22/20 22:33 Body Mass Index 22.6 <Beth Mehta NP - Last Filed: 05/23/20 08:28> Const: Other: anxious male <Keyshawn Aragon MD - Last Filed: 05/22/20 12:18> Nutritional Appearance: average body habitus <Keyshawn Aragon MD - Last Filed: 05/22/20 12:18> Orientation/consciousness: oriented to person and patient oriented x3 <Keyshawn Aragon MD - Last Filed: 05/22/20 12:18> Limitations: no limitations <Keyshawn Aragon MD - Last Filed: 05/22/20 12:18> HENMT: Head: Yes normal to inspection <Keyshawn Aragon MD - Last Filed: 05/22/20 12:18> Ears: external ears normal <Keyshawn Aragon MD - Last Filed: 05/22/20 12:18> General nose exam: Normal external nose present <Keyshawn Aragon MD - Last Filed: 05/22/20 12:18> Mouth: Normal oral and palatal mucosa present and oropharynx normal <Keyshawn Aragon MD - Last Filed: 05/22/20 12:18> Throat: Yes posterior oropharynx normal <Keyshawn Aragon MD - Last Filed: 05/22/20 12:18> Eyes: General: appearance normal, both eyes and all related structures <Keyshawn Aragon MD - Last Filed: 05/22/20 12:18> Neck: Other: supple <Keyshawn Aragon MD - Last Filed: 05/22/20 12:18> Neck: Yes normal visual inspection <Keyshawn Aragon MD - Last Filed: 05/22/20 12:18> Chest: Chest palpation & inspection: normal inspection of the chest <Keyshawn Aragon MD - Last Filed: 05/22/20 12:18> Resp: Auscultation: clear to auscultation bilaterally <Keyshawn Aragon MD - Last Filed: 05/22/20 12:18> Cardio: Jugular venous distension: no JVD <Keyshawn Aragon MD - Last Filed: 05/22/20 12:18> Rate: regular rate <Keyshawn Aragon MD - Last Filed: 05/22/20 12:18> Rhythm: regular rhythm <Keyshawn Aragon MD - Last Filed: 05/22/20 12:18> Heart sounds: S1 normal heart sound present and S2 normal heart sound present <Keyshawn Aragon MD - Last Filed: 05/22/20 12:18> GI: Inspection: Yes normal to inspection <Keyshawn Aragon MD - Last Filed: 05/22/20 12:18> Palpation (GI): Soft to palpation, nontender and No hepatosplenomegaly present <Keyshawn Aragon MD - Last Filed: 05/22/20 12:18> Auscultation: normal bowel sounds <Keyshawn Aragon MD - Last Filed: 05/22/20 12:18> : General: Yes no CVA tenderness <Keyshawn Aragon MD - Last Filed: 05/22/20 12:18> Back/Spine/Pelvis: Back: no CVA tenderness <Keyshawn Aragon MD - Last Filed: 05/22/20 12:18> Skin: General skin exam: no rashes or lesions noted <Keyshawn Aragon MD - Last Filed: 05/22/20 12:18> Neuro: General: oriented to person and patient oriented x3 <Keyshawn Aragon MD - Last Filed: 05/22/20 12:18> Cranial nerves: Yes CN's II-XII intact bilaterally <Keyshawn Aragon MD - Last Filed: 05/22/20 12:18> Motor exam (neuro): 5/5 motor strength present throughout <Keyshawn Aragon MD - Last Filed: 05/22/20 12:18> Sensory Exam: No Sensory deficit (Neuro) <Keyshawn Aragon MD - Last Filed: 05/22/20 12:18> Extrem: General: Yes normal to inspection <Keyshawn Aragon MD - Last Filed: 05/22/20 12:18> Psych: Appearance: grossly normal <Keyshawn Aragon MD - Last Filed: 05/22/20 12:18> Course Course Course Narrative: Patient placed in physician observation at 12:16pm The indication for observation is that the patient needs more time to see if his depression improves or he will need to be admitted. At this time the patient is well developed well nourished, lungs clear, CV RRR, abd nontender, neuro is intact <Keyshawn Aragon MD - Last Filed: 05/22/20 12:18> 0830-Pt seen this morning. Currently sleeping. vital signs reviewed and stable. Currently a section 12, bed search. Will continue with plan of care <Beth Mehta NP - Last Filed: 05/23/20 08:28> MDM - Psych Lab Data Result diagrams: : 05/22/20 07:43 05/22/20 07:43 <Keyshawn Aragon MD - Last Filed: 05/22/20 12:18> Labs: Lab Results 05/22/20 05/22/20 05/22/20 Range/Units 07:43 07:43 07:43 WBC 5.8 (4.8-10.8) X10*3/uL RBC 3.82 L (4.60-5.80) X10*6/uL Hgb 11.9 L (14.0-18.0) g/dl Hct 36.5 L (42-52) % MCV 95.5 (80-98) fL MCH 31.2 (27.0-33.0) pg MCHC 32.6 (31.0-36.0) g/dl RDW 13.5 (11.0-16.0) % Plt Count 211 (160-400) X10*3/uL MPV 9.7 (9.4-12.4) fL Immature Gran % (Auto) 0.2 (0.0-0.4) % Neut % (Auto) 61.8 (45-73) % Lymph % (Auto) 24.9 (20-40) % [place] % (Auto) 6.9 (2-11) % Eos % (Auto) 5.3 H (0-4) % Baso % (Auto) 0.9 (0-2) % Lymph # (Auto) 1.5 (1.2-4.9) X10*3/uL [place] # (Auto) 0.4 (0.1-1.2) X10*3/uL Eos # (Auto) 0.3 (0.0-0.4) X10*3/uL Baso # (Auto) 0.1 (0.0-0.2) X10*3/uL Abs Immat Gran (auto) 0.01 (0.00-0.03) X10*3/uL Absolute Neuts (auto) 3.6 (2.0-8.3) X10*3/uL Absolute Nucleated RBC 0.000 (0.0-0.012) X10*3/uL Nucleated RBC % (auto) 0.0 (0.0-0.2) /100WBC Sodium 137 (135-145) mmol/L Potassium 3.9 (3.3-5.1) mmol/L Chloride 102 (96-108) mmol/L Carbon Dioxide 28 (22-29) mmol/L Anion Gap 11 L (12-20) BUN 7 L (9-16) mg/dL Creatinine 0.76 (0.5-1.4) mg/dL Estim Creat Clear Calc 98.9 Estimated GFR > 60 Random Glucose 95 (60-115) mg/dL Calcium 8.6 (8.4-10.2) mg/dL Total Bilirubin 0.6 (0.0-1.0) mg/dL AST 15 (5-37) U/L ALT 10 (0-40) U/L Alkaline Phosphatase 78 (39-117) U/L Total Protein 6.8 (6.5-8.0) g/dL Albumin 4.0 (3.5-5.0) g/dL Specimen Comment Salicylates < 5.0 L (15-30) mg/dL Urine Opiates Screen (Not Detect) Acetaminophen < 1 (<30) mcg/mL Ur Barbiturates Screen (Not Detect) Ur Phencyclidine Scrn (Not Detect) Ur Amphetamines Screen (Not Detect) U Benzodiazepines Scrn (Not Detect) Urine Cocaine Screen (Not Detect) U Marijuana (THC) Screen (Not Detect) Ethyl Alcohol < 10 mg/dL COVID-19 (ERIN) (Negative) COVID-19 Clin Com 05/22/20 05/22/20 05/23/20 Range/Units 07:43 08:57 05:17 WBC (4.8-10.8) X10*3/uL RBC (4.60-5.80) X10*6/uL Hgb (14.0-18.0) g/dl Hct (42-52) % MCV (80-98) fL MCH (27.0-33.0) pg MCHC (31.0-36.0) g/dl RDW (11.0-16.0) % Plt Count (160-400) X10*3/uL MPV (9.4-12.4) fL Immature Gran % (Auto) (0.0-0.4) % Neut % (Auto) (45-73) % Lymph % (Auto) (20-40) % [place] % (Auto) (2-11) % Eos % (Auto) (0-4) % Baso % (Auto) (0-2) % Lymph # (Auto) (1.2-4.9) X10*3/uL [place] # (Auto) (0.1-1.2) X10*3/uL Eos # (Auto) (0.0-0.4) X10*3/uL Baso # (Auto) (0.0-0.2) X10*3/uL Abs Immat Gran (auto) (0.00-0.03) X10*3/uL Absolute Neuts (auto) (2.0-8.3) X10*3/uL Absolute Nucleated RBC (0.0-0.012) X10*3/uL Nucleated RBC % (auto) (0.0-0.2) /100WBC Sodium (135-145) mmol/L Potassium (3.3-5.1) mmol/L Chloride (96-108) mmol/L Carbon Dioxide (22-29) mmol/L Anion Gap (12-20) BUN (9-16) mg/dL Creatinine (0.5-1.4) mg/dL Estim Creat Clear Calc Estimated GFR Random Glucose (60-115) mg/dL Calcium (8.4-10.2) mg/dL Total Bilirubin (0.0-1.0) mg/dL AST (5-37) U/L ALT (0-40) U/L Alkaline Phosphatase (39-117) U/L Total Protein (6.5-8.0) g/dL Albumin (3.5-5.0) g/dL Specimen Comment DELAY Salicylates (15-30) mg/dL Urine Opiates Screen POSITIVE H (Not Detect) Acetaminophen (<30) mcg/mL Ur Barbiturates Screen Not Detected (Not Detect) Ur Phencyclidine Scrn Not Detected (Not Detect) Ur Amphetamines Screen Not Detected (Not Detect) U Benzodiazepines Scrn Not Detected (Not Detect) Urine Cocaine Screen POSITIVE H (Not Detect) U Marijuana (THC) Screen Not Detected (Not Detect) Ethyl Alcohol mg/dL COVID-19 (ERIN) Negative (Negative) COVID-19 Clin Com See Note <Keyshawn Aragon MD - Last Filed: 05/22/20 12:18> Lab Results 05/22/20 05/22/20 05/22/20 Range/Units 07:43 07:43 07:43 WBC 5.8 (4.8-10.8) X10*3/uL RBC 3.82 L (4.60-5.80) X10*6/uL Hgb 11.9 L (14.0-18.0) g/dl Hct 36.5 L (42-52) % MCV 95.5 (80-98) fL MCH 31.2 (27.0-33.0) pg MCHC 32.6 (31.0-36.0) g/dl RDW 13.5 (11.0-16.0) % Plt Count 211 (160-400) X10*3/uL MPV 9.7 (9.4-12.4) fL Immature Gran % (Auto) 0.2 (0.0-0.4) % Neut % (Auto) 61.8 (45-73) % Lymph % (Auto) 24.9 (20-40) % [place] % (Auto) 6.9 (2-11) % Eos % (Auto) 5.3 H (0-4) % Baso % (Auto) 0.9 (0-2) % Lymph # (Auto) 1.5 (1.2-4.9) X10*3/uL [place] # (Auto) 0.4 (0.1-1.2) X10*3/uL Eos # (Auto) 0.3 (0.0-0.4) X10*3/uL Baso # (Auto) 0.1 (0.0-0.2) X10*3/uL Abs Immat Gran (auto) 0.01 (0.00-0.03) X10*3/uL Absolute Neuts (auto) 3.6 (2.0-8.3) X10*3/uL Absolute Nucleated RBC 0.000 (0.0-0.012) X10*3/uL Nucleated RBC % (auto) 0.0 (0.0-0.2) /100WBC Sodium 137 (135-145) mmol/L Potassium 3.9 (3.3-5.1) mmol/L Chloride 102 (96-108) mmol/L Carbon Dioxide 28 (22-29) mmol/L Anion Gap 11 L (12-20) BUN 7 L (9-16) mg/dL Creatinine 0.76 (0.5-1.4) mg/dL Estim Creat Clear Calc 98.9 Estimated GFR > 60 Random Glucose 95 (60-115) mg/dL Calcium 8.6 (8.4-10.2) mg/dL Total Bilirubin 0.6 (0.0-1.0) mg/dL AST 15 (5-37) U/L ALT 10 (0-40) U/L Alkaline Phosphatase 78 (39-117) U/L Total Protein 6.8 (6.5-8.0) g/dL Albumin 4.0 (3.5-5.0) g/dL Specimen Comment Salicylates < 5.0 L (15-30) mg/dL Urine Opiates Screen (Not Detect) Acetaminophen < 1 (<30) mcg/mL Ur Barbiturates Screen (Not Detect) Ur Phencyclidine Scrn (Not Detect) Ur Amphetamines Screen (Not Detect) U Benzodiazepines Scrn (Not Detect) Urine Cocaine Screen (Not Detect) U Marijuana (THC) Screen (Not Detect) Ethyl Alcohol < 10 mg/dL COVID-19 (ERIN) (Negative) COVID-19 Clin Com 05/22/20 05/22/20 05/23/20 Range/Units 07:43 08:57 05:17 WBC (4.8-10.8) X10*3/uL RBC (4.60-5.80) X10*6/uL Hgb (14.0-18.0) g/dl Hct (42-52) % MCV (80-98) fL MCH (27.0-33.0) pg MCHC (31.0-36.0) g/dl RDW (11.0-16.0) % Plt Count (160-400) X10*3/uL MPV (9.4-12.4) fL Immature Gran % (Auto) (0.0-0.4) % Neut % (Auto) (45-73) % Lymph % (Auto) (20-40) % [place] % (Auto) (2-11) % Eos % (Auto) (0-4) % Baso % (Auto) (0-2) % Lymph # (Auto) (1.2-4.9) X10*3/uL [place] # (Auto) (0.1-1.2) X10*3/uL Eos # (Auto) (0.0-0.4) X10*3/uL Baso # (Auto) (0.0-0.2) X10*3/uL Abs Immat Gran (auto) (0.00-0.03) X10*3/uL Absolute Neuts (auto) (2.0-8.3) X10*3/uL Absolute Nucleated RBC (0.0-0.012) X10*3/uL Nucleated RBC % (auto) (0.0-0.2) /100WBC Sodium (135-145) mmol/L Potassium (3.3-5.1) mmol/L Chloride (96-108) mmol/L Carbon Dioxide (22-29) mmol/L Anion Gap (12-20) BUN (9-16) mg/dL Creatinine (0.5-1.4) mg/dL Estim Creat Clear Calc Estimated GFR Random Glucose (60-115) mg/dL Calcium (8.4-10.2) mg/dL Total Bilirubin (0.0-1.0) mg/dL AST (5-37) U/L ALT (0-40) U/L Alkaline Phosphatase (39-117) U/L Total Protein (6.5-8.0) g/dL Albumin (3.5-5.0) g/dL Specimen Comment DELAY Salicylates (15-30) mg/dL Urine Opiates Screen POSITIVE H (Not Detect) Acetaminophen (<30) mcg/mL Ur Barbiturates Screen Not Detected (Not Detect) Ur Phencyclidine Scrn Not Detected (Not Detect) Ur Amphetamines Screen Not Detected (Not Detect) U Benzodiazepines Scrn Not Detected (Not Detect) Urine Cocaine Screen POSITIVE H (Not Detect) U Marijuana (THC) Screen Not Detected (Not Detect) Ethyl Alcohol mg/dL COVID-19 (ERIN) Negative (Negative) COVID-19 Clin Com See Note <Beth Mehta NP - Last Filed: 05/23/20 08:28> Discharge Plan Discharge Prescriptions: No Action simethicone [Gas Relief (simethicone)] 125 mg tablet,chewable 125 mg PO QID PRN (Reason: abdominal distention, gas) 30 Days Qty: 120 RF: 3 sennosides [Senna Laxative] 8.6 mg tablet 8.6 - 17.2 mg PO BID PRN (Reason: constipation) 30 Days Qty: 90 RF: 0 atenolol 25 mg tablet 25 mg PO DAILY Qty: 30 RF: 0 tamsulosin 0.4 mg capsule 0.4 mg PO DAILY Qty: 30 RF: 0 omeprazole 20 mg capsule,delayed release(DR/EC) 20 mg PO DAILY Qty: 30 RF: 0 zolpidem 10 mg Tablet 10 mg PO BEDTIME PRN (Reason: Insomnia) Qty: 30 RF: 0 albuterol sulfate [ProAir HFA] 90 mcg/actuation HFA aerosol inhaler 1 puff inhalation QID PRN (Reason: Shortness Of Breath Or Wheezing) Qty: 1 RF: 0 clonidine HCl 0.3 mg tablet 1 tab PO BEDTIME RF: 0 loperamide [Anti-Diarrheal (loperamide)] 2 mg tablet 1 tab PO QID PRN (Reason: Diarrhea) RF: 0 mirtazapine 45 mg tablet 1 tab PO BEDTIME RF: 0 ondansetron 4 mg tablet,disintegrating 1 tab PO DAILY PRN (Reason: nausea/vomiting) RF: 0 aripiprazole 30 mg tablet 1 tab PO DAILY RF: 0 lactulose 20 gram/30 mL solution 20 g PO DAILY PRN (Reason: Constipation) RF: 0 clonazepam [Klonopin] 1 mg tablet 1 mg PO BID RF: 0 haloperidol 1 mg tablet 1 mg PO BID PRN (Reason: RESTLESSNESS) RF: 0 divalproex 250 mg tablet,delayed release (DR/EC) 250 mg PO DAILY RF: 0 amitriptyline 25 mg tablet 100 mg PO BEDTIME RF: 0 <Keyshawn Aragon MD - Last Filed: 05/22/20 12:18>
[2020-05-22] MEDS: hydrOXYzine HCL 25 MG TABLET PO (07:46)
[2020-05-22 07:53] LABS: MANUAL DIFF FLAG NO
[2020-05-22 07:59] LABS: Basophils Absolute Auto 0.1 X10*3/uL (0.0-0.2); Basophils Percent Auto 0.9 % (0-2); Eosinophils Absolute Auto 0.3 X10*3/uL (0.0-0.4); Eosinophils Percent Auto 5.3 % (0-4); Hematocrit 36.5 % (42-52); Hemoglobin 11.9 g/dl (14.0-18.0); Imm Gran Abs Auto 0.01 X10*3/uL (0.00-0.03); Imm Gran Pct Auto 0.2 % (0.0-0.4); Lymphocytes Absolute Auto 1.5 X10*3/uL (1.2-4.9); Lymphocytes Percent Auto 24.9 % (20-40); Mean Corpuscular HGB Conc 32.6 g/dl (31.0-36.0); Mean Corpuscular Hemoglobin 31.2 pg (27.0-33.0); Mean Corpuscular Volume 95.5 fL (80-98); Mean Platelet Volume 9.7 fL (9.4-12.4); Monocytes Absolute Auto 0.4 X10*3/uL (0.1-1.2); Monocytes Percent Auto 6.9 % (2-11); Neutrophils Absolute Auto 3.6 X10*3/uL (2.0-8.3); Neutrophils Percent Auto 61.8 % (45-73); Platelet Count 211 X10*3/uL (160-400); Red Blood Count 3.82 X10*6/uL (4.60-5.80); Red Cell Distribution Width 13.5 % (11.0-16.0); White Blood Count 5.8 X10*3/uL (4.8-10.8)
[2020-05-22 08:17] LABS: Ethanol < 10 mg/dL
[2020-05-22 08:25] LABS: Alanine Aminotransferase 10 U/L (0-40); Alkaline Phosphatase 78 U/L (39-117); Anion Gap 11 (12-20); Aspartate Amino Transferase 15 U/L (5-37); Bilirubin Total 0.6 mg/dL (0.0-1.0); Blood Urea Nitrogen 7 mg/dL (9-16); Calcium 8.6 mg/dL (8.4-10.2); Carbon Dioxide 28 mmol/L (22-29); Chloride 102 mmol/L (96-108); Creatinine Clr Calc Pharmacy 98.9; Estimated Glomerular Filt Rate > 60; Glucose Random 95 mg/dL (60-115); Potassium 3.9 mmol/L (3.3-5.1); Sodium 137 mmol/L (135-145); Total Protein 6.8 g/dL (6.5-8.0)
[2020-05-22 08:32] LABS: Delay - Chemistry DELAY
[2020-05-22 09:39] LABS: Amphetamine Screen Urine Not Detected (Not Detect); Barbiturates, Urine Not Detected (Not Detect); Benzodiazepines Screen Urine Not Detected (Not Detect); Cannabinoid Screen Urine Not Detected (Not Detect); Cocaine Screen Urine POSITIVE (Not Detect); Opiate Screen Urine POSITIVE (Not Detect); Phencyclidine Screen Urine Not Detected (Not Detect)
[2020-05-22 10:17] LABS: Acetaminophen LAB < 1 mcg/mL (<30); Salicylate < 5.0 mg/dL (15-30)
--- NOTE | 2020-05-22 12:00 | PC.NURSE ---
CARE team at bedside to eval pt.
[2020-05-22] MEDS: Omeprazole 20 MG CAPSULE.DR PO (13:20)
[2020-05-22] MEDS: Divalproex Sodium 250 MG TABLET.DR PO (13:20)
[2020-05-22] MEDS: clonazePAM 1 MG TABLET PO ×2 (13:20→20:12)
[2020-05-22] MEDS: atenoloL 25 MG TABLET PO (13:21)
[2020-05-22] MEDS: ARIPiprazole 30 MG TABLET PO (13:24)
[2020-05-22] MEDS: Sennosides 8.6 MG TABLET PO (13:24)
[2020-05-22] MEDS: Tamsulosin HCL 0.4 MG CAPSULE PO (13:25)
--- NOTE | 2020-05-22 19:21 | PC.NURSE ---
Pt requesting medication for diarrhea, reports multiple episodes throughout the day. This RN discussing with NASRIN Montesinos, plan for Imodium.
[2020-05-22] MEDS: Loperamide HCl 2 MG CAPSULE PO (19:24)
--- NOTE | 2020-05-22 19:55 | PC.NURSE ---
Addendum entered by Lety Cunningham 05/22/20 19:59: Pt also reporting 40 episodes of diarrhea today. Original Note: Pt now requesting pain medication. Pt reporting right sided abdominal pain radiating into the right side of his back associated with diarrhea for 3 days. No pain PRN pain medication noted in MAR at this time. This RN to consult with NASRIN.
--- NOTE | 2020-05-22 20:05 | PC.NURSE ---
MD Avalos consulted regarding pts complaint. Plan for Bentyl and Zoan at this time.
[2020-05-22] MEDS: Dicyclomine HCl 10 MG CAPSULE 20 MG PO (20:12)
[2020-05-22] MEDS: Mirtazapine 15 MG TABLET 45 MG PO (20:12)
[2020-05-22] MEDS: cloNIDine HCL 0.1 MG TABLET 0.3 MG PO (20:13)
[2020-05-22] MEDS: Amitriptyline HCl 25 MG TABLET 100 MG PO (20:13)
--- NOTE | 2020-05-22 20:20 | PC.NURSE ---
Pt medicated per MAR with Bentyl and Zofran. Pt also medicated with PM meds at this time. VSS.
[2020-05-22] MEDS: Zolpidem Tartrate 5 MG TABLET 10 MG PO (21:29)
--- NOTE | 2020-05-22 21:29 | PC.NURSE ---
Pt medicated with Dayana per request.
--- NOTE | 2020-05-22 23:24 | PC.NURSE ---
Report received. PT is laying in a chair. Calm and cooperative. Inpatient bed search in progress.
[2020-05-23 05:38] LABS: COVID-19 Test Negative (Negative)
--- NOTE | 2020-05-23 05:53 | PC.NURSE ---
PT to be reevaluated by N this morning.
--- NOTE | 2020-05-23 09:52 | PC.NURSE ---
plan to go to [facility]
[2020-05-23] MEDS: Divalproex Sodium 250 MG TABLET.DR PO (10:21)
[2020-05-23] MEDS: Omeprazole 20 MG CAPSULE.DR PO (10:21)
[2020-05-23] MEDS: clonazePAM 1 MG TABLET PO ×2 (10:21→20:09)
[2020-05-23] MEDS: Tamsulosin HCL 0.4 MG CAPSULE PO (10:21)
[2020-05-23] MEDS: ARIPiprazole 30 MG TABLET PO (10:22)
--- NOTE | 2020-05-23 10:30 | PC.NURSE ---
pt medicated per emar. atenolol held at this time, will re eval. pt aware of plan to go to [facility]
--- NOTE | 2020-05-23 12:23 | PC.NURSE ---
allie called from [facility] to stated that [facility] will not be taking the patient today. Maybe tommaury.
[2020-05-23 12:39] VITALS: BP 126/72; PULSE 67; RESP 18; TEMP 36.7; O2SAT 99
[2020-05-23 14:00] VITALS: BP 126/72; PULSE 67; RESP 18; TEMP 36.8; O2SAT 99
--- NOTE | 2020-05-23 14:52 | PC.NURSE ---
patient requesting medication for diarrhea, provider notified, no new orders given at this time, will continue to monitor.
[2020-05-23] MEDS: Loperamide HCl 2 MG CAPSULE PO (15:07)
--- NOTE | 2020-05-23 15:08 | PC.NURSE ---
pt medicated per order
--- NOTE | 2020-05-23 15:09 | PC.NURSE ---
patient a&ox3, vss, pt states he still wishes to kill himself and denies HI at this time, sitter at bedside will continue to monitor.
[2020-05-23 16:03] VITALS: BP 121/74; PULSE 66; RESP 18; TEMP 36.8; O2SAT 99
--- NOTE | 2020-05-23 16:15 | PC.NURSE ---
patient moved to pod
[2020-05-23 18:06] VITALS: BP 124/87; PULSE 74; RESP 20; TEMP 36.6; O2SAT 97
[2020-05-23] MEDS: Acetaminophen 325 MG TABLET 650 MG PO (18:48)
[2020-05-23] MEDS: Zolpidem Tartrate 5 MG TABLET 10 MG PO (20:07)
[2020-05-23] MEDS: Amitriptyline HCl 25 MG TABLET 100 MG PO (20:07)
[2020-05-23 20:08] VITALS: BP 122/82; PULSE 83; RESP 16; TEMP 36.9; O2SAT 98
[2020-05-23] MEDS: Mirtazapine 15 MG TABLET 45 MG PO (20:08)
[2020-05-23] MEDS: cloNIDine HCL 0.1 MG TABLET 0.3 MG PO (20:08)
[2020-05-24] MEDS: LORazepam 1 MG TABLET 2 MG PO (01:58)
[2020-05-24] MEDS: HaloperidoL 1 MG TABLET PO (01:58)
--- NOTE | 2020-05-24 02:16 | PC.NURSE ---
Patient in bed seems restless, tremulous, sneezing intermittently, provider notified/ordered Ativan 2 mg administered with PRN haldol 1 mg, pending effect. Will continue to monitor
--- NOTE | 2020-05-24 07:19 | PC.NURSE ---
Report received from KRISTY Paredes. Pt resting, resp unlabored.
[2020-05-24 08:52] VITALS: BP 149/88; PULSE 99; TEMP 36.6; O2SAT 99
[2020-05-24 09:03] VITALS: BP 149/88; PULSE 99
[2020-05-24] MEDS: Divalproex Sodium 250 MG TABLET.DR PO (09:03)
[2020-05-24] MEDS: Tamsulosin HCL 0.4 MG CAPSULE PO (09:03)
[2020-05-24] MEDS: clonazePAM 1 MG TABLET PO (09:03)
[2020-05-24] MEDS: Omeprazole 20 MG CAPSULE.DR PO (09:03)
[2020-05-24] MEDS: ARIPiprazole 30 MG TABLET PO (09:03)
[2020-05-24] MEDS: atenoloL 25 MG TABLET PO (09:03)
[2020-05-24 10:00] VITALS: RESP 20
--- NOTE | 2020-05-24 10:00 | PC.NURSE ---
Pt seen by Addictions RN Rita, reviewed history and options.
--- NOTE | 2020-05-24 10:07 | MHC.RECOVRN ---
Recovery Support Note: 50 year old male presented to [facility] [place] [place] ED on 05/22/20 due to voices that are telling him to kill himself. Called ambulance for himself per equipment sterilizer.? T/w met with pt in ED BH 6 after patient c/o withdrawal symptoms. Pt reports using oxycodone, three 5mg tabs daily from a friend. Pt reports last use on 05/21/20.?Pt reports upset stomach, anxiety, body aches. COWS score 10.? Pt reports [facility] in February?2019 and beginning OTP at [place], unknown dose, and continuing for 3 weeks. Pt interested in methadone for pain and withdrawal symptoms.? Plan: Discussed with Meghan Stewart APRN, and referred for addiction med consultation. KRISTY Parish, also aware of plan.?
--- NOTE | 2020-05-24 10:39 | PC.NURSE ---
Pt resting, resp unlabored.
--- NOTE | 2020-05-24 11:58 | PC.NURSE ---
Report given to KRISTY Shannon at [facility]. Pt aware that he has been accepted to [facility], appears to be in agreement w/ plan, no concerns reported.
[2020-05-24 12:00] VITALS: RESP 20
[2020-05-24] MEDS: Acetaminophen 325 MG TABLET 650 MG PO (12:01)
--- NOTE | 2020-05-24 13:57 | PC.NURSE ---
EMS in to transfer pt to [facility]. Pt cooperative w/ care and w/ transfer, affect even, no concerns reported.
== END 2020-05-24 13:59 ==
PROVIDERS: Emergency Medicine; Emergency Provider Emergency Medicine; PCP Internal Medicine
DX: F33.3 Major depressive disorder, recurrent, severe with psychotic symptoms (principal); F41.9 Anxiety disorder, unspecified; R44.0 Auditory hallucinations; R45.851 Suicidal ideations; Z20.822 Contact with and (suspected) exposure to COVID-19; F17.210 Nicotine dependence, cigarettes, uncomplicated; Z91.14 Patient's other noncompliance with medication regimen; Z91.5 Personal history of self-harm
CPT/HCPCS: 36415; 80053; 80143; 80179; 80307; 80320; 85025; 87635; 99285

== ENCOUNTER 2020-06-13 23:30 | Emergency (ER) | payer MEDICAID, SELFPAY ==
--- NOTE | ~2020-06-13 | XR_ITS ---
EXAMINATION: XR SHOULDER, LEFT CLINICAL INFORMATION: Arm pain. Fall 2 days ago. COMPARISON: 08/10/2015 TECHNIQUE: Four views of the left shoulder. FINDINGS: No fracture or dislocation. The glenohumeral joint is well aligned. There is narrowing of the joint space with prominent osteophyte formation. The acromioclavicular joint is intact. The visualized lung is clear. The visualized ribs are intact. XR/XR shoulder LT min 2V IMPRESSION: No fracture or malalignment. 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
[2020-06-13 23:37] VITALS: BP 111/63; PULSE 65; RESP 18; TEMP 36; O2SAT 97; BMI 23.3
[2020-06-14 00:20] LABS: COVID-19 Test Negative (Negative)
--- NOTE | 2020-06-14 00:39 | PC.NURSE ---
Patient just got seen by the provider, N consult ordered, [facility] faxed/called/spoke with Julianna/confirmed receipt of referral, no ETA at this time, patient provided a urine sample, pending results, will continue to monitor.
--- NOTE | 2020-06-14 00:41 | ECG_ITS ---
Test Reason : cocaine use Blood Pressure : / mmHG Vent. Rate : 051 BPM Atrial Rate : 051 BPM P-R Int : 116 ms QRS Dur : 098 ms QT Int : 436 ms P-R-T Axes : 032 021 024 degrees QTc Int : 401 ms Sinus bradycardia Otherwise normal ECG When compared with ECG of 07-APR-2020 09:36, No significant change was found Referred By: Alie Abarca Electronically Signed By:Scottie Figueroa
--- NOTE | 2020-06-14 00:42 | ED.PSYCH ---
HPI - Psych General Chief Complaint: Psychiatric Symptoms <Alie Abarca PA-C - Last Filed: 06/14/20 18:31> Stated Complaint: SI <KIET Montgomery Last Filed: 06/14/20 18:31> Time Seen by Provider: 06/14/20 00:29 <Alie Abarca PA-C - Last Filed: 06/14/20 18:31> Source: patient <Alie Abarca PA-C - Last Filed: 06/14/20 18:31> Mode of arrival: EMS <KIET Montgomery Last Filed: 06/14/20 18:31> Limitations: no limitations <Alie Abarca PA-C - Last Filed: 06/14/20 18:31> History of Present Illness HPI Narrative: Patient is a 50-year-old male with a significant past medical history of psychiatric issues, and multiple SI as well as GERD, anxiety, chest pain and dysphagia who presents to the ED with suicidal ideations. Patient states he is hearing voices and those voices are telling him to hurt himself. Patient was recently discharged from and stops taking his psychiatric medications 2 days ago. He has been using drugs, specifically cocaine or heroin and states he is not feeling well. He is very teary and states he has multiple plans to hurt himself and gives an example of jumping out a window. He denies HI. <Alie Abarca PA-C - Last Filed: 06/14/20 18:31> Related Data Home Medications: Home Medications Medication Instructions Recorded Confirmed clonazepam 1 mg tablet 1 mg PO BID tab 04/25/20 06/14/20 haloperidol 1 mg tablet 1 mg PO BID PRN 04/25/20 06/14/20 amitriptyline 25 mg tablet 100 mg PO BEDTIME tab 04/26/20 06/14/20 aripiprazole 1 tab PO DAILY 05/22/20 06/14/20 clonidine HCl 1 tab PO BEDTIME 05/22/20 06/14/20 lactulose 20 g PO DAILY PRN 05/22/20 06/14/20 mirtazapine 1 tab PO BEDTIME 05/22/20 06/14/20 ondansetron 1 tab PO DAILY PRN 05/22/20 06/14/20 divalproex 500 mg PO BID 06/14/20 06/14/20 Previous Rx's Medication Instructions Recorded simethicone 125 mg chewable tablet 125 mg PO QID PRN 30 Days #120 tab 02/10/20 albuterol sulfate [ProAir HFA] 1 puff INHALATION QID PRN #1 g 02/21/20 atenolol 25 mg PO DAILY #30 tab 02/21/20 omeprazole 20 mg PO DAILY #30 cap 02/21/20 tamsulosin 0.4 mg PO DAILY #30 cap 02/21/20 zolpidem 10 mg PO BEDTIME PRN #30 tab 02/21/20 sennosides 8.6 mg tablet 8.6 - 17.2 mg PO BID PRN 30 Days 03/22/20 #90 tab loperamide 2 mg tablet 2 mg PO QID PRN 30 Days #120 tab 06/07/20 clonazepam [Klonopin] 1 mg PO BEDTIME #1 tab 06/14/20 clonazepam [Klonopin] 1 mg PO BEDTIME #1 tab 06/14/20 <Alie Abarca PA-C - Last Filed: 06/14/20 18:31> Allergies/Adverse Reactions: Allergies Allergy/AdvReac Type Severity Reaction Status Date / Time trazodone [TRAZODONE] Allergy Severe FACIAL Verified 04/07/20 09:20 SWELLING, swelling cat dander [CATS] Allergy Intermediate FACIAL Verified 04/07/20 09:20 ITCHING doxepin [DOXEPIN] Allergy Intermediate WEIGHT Verified 04/07/20 09:20 GAIN/LEG SWELLING Iodinated Contrast Media Allergy Intermediate ITCHING Verified 04/07/20 09:20 [IV DYE, IODINE CONTAINING CONTRAST ] nitroglycerin [NITROGLYCERIN] Allergy Unknown UNKNOWN Verified 04/07/20 09:20 tramadol [TRAMADOL] Allergy Unknown UNKNOWN, Verified 04/07/20 09:20 dry mouth ibuprofen [From MOTRIN] AdvReac Intermediate GI UPSET Verified 04/07/20 09:20 quetiapine [From SEROQUEL] AdvReac Intermediate FACIAL Verified 04/07/20 09:20 SWELLING aspirin [ASPIRIN] AdvReac Mild Stomach Verified 04/07/20 09:20 Upset Ibuprofen Allergy Unknown stomach Uncoded 04/07/20 09:20 ache IV contrast Allergy Unknown Unknown Uncoded 04/07/20 09:20 Motrin Allergy Unknown stomach Uncoded 04/07/20 09:20 pain <Alie Abarca PA-C - Last Filed: 06/14/20 18:31> Review of Systems Review of Systems: Yes all other systems are reviewed and are negative <Alie Abarca PA-C - Last Filed: 06/14/20 18:31> [facility] Past Medical History Medical History: Medical History Anxiety Chest pain Dysphagia GERD (gastroesophageal reflux disease) Weight loss <Alie Abarca PA-C - Last Filed: 06/14/20 18:31> Surgical History: Surgical History H/O umbilical hernia repair History of colonoscopy History of cystoscopy <Alie Abarca PA-C - Last Filed: 06/14/20 18:31> Family History Family History: Family History Father HTN (hypertension) Diabetes Mother HTN (hypertension) Stroke Alzheimer disease Heart disease <Alie Abarca PA-C - Last Filed: 06/14/20 18:31> Social History Social History: Social History Household Members: Friend(s) Housing: House Alcohol intake: unknown Smoking Status: Unknown if ever smoked Tobacco Type: Cigarette Packs Per Day: 1 Cigarettes Per Day: 15 Years Smoked: 9 Second Hand Smoke Exposure: Yes Advance Directives: Yes Advance Directives on File: Yes Advance Directives Date on File: 02/24/20 service: No Sexual orientation: Straight/Heterosexual <Alie Abarca PA-C - Last Filed: 06/14/20 18:31> Physical Exam Vital Signs: Vital Signs: Last Vital Signs Temp 98.2 F 06/14/20 18:00 Pulse 59 06/14/20 18:00 Resp 18 06/14/20 18:00 BP 121/60 06/14/20 18:00 Pulse Ox 96 06/14/20 18:00 Body Mass Index 23.3 <Alie Abarca PA-C - Last Filed: 06/14/20 18:31> Vital Signs: Last Vital Signs Temp 98.2 F 06/14/20 18:00 Pulse 59 06/14/20 18:00 Resp 18 06/14/20 18:00 BP 121/60 06/14/20 18:00 Pulse Ox 96 06/14/20 18:00 Body Mass Index 23.3 <Frank Vale NP - Last Filed: 06/14/20 17:20> Vital Signs: Last Vital Signs Temp 98.2 F 06/14/20 18:00 Pulse 59 06/14/20 18:00 Resp 18 06/14/20 18:00 BP 121/60 06/14/20 18:00 Pulse Ox 96 06/14/20 18:00 Body Mass Index 23.3 <Keyshawn Aragon MD - Last Filed: 07/02/20 09:11> Const: General: cooperative, healthy appearing, comfortable, no acute distress and well developed <Alie Abarca PA-C - Last Filed: 06/14/20 18:31> Orientation/consciousness: patient oriented x3 <Alie Abarca PA-C - Last Filed: 06/14/20 18:31> Limitations: no limitations <Alie Abarca PA-C - Last Filed: 06/14/20 18:31> HENMT: Head: Yes normal to inspection <Alie Abarca PA-C - Last Filed: 06/14/20 18:31> Eyes: General: appearance normal, both eyes and all related structures <Alie Abarca PA-C - Last Filed: 06/14/20 18:31> Neck: Neck: Yes normal visual inspection and Yes full ROM <Alie Abarca PA-C - Last Filed: 06/14/20 18:31> Resp: Effort & Inspection: normal respiratory effort and able to speak in complete sentences <Alie Abarca PA-C - Last Filed: 06/14/20 18:31> Cardio: Rate: regular rate <Alie Abarca PA-C - Last Filed: 06/14/20 18:31> GI: Inspection: Yes normal to inspection <Alie Abarca PA-C - Last Filed: 06/14/20 18:31> Skin: Other: Diaphoretic <Alie Abarca PA-C - Last Filed: 06/14/20 18:31> General skin exam: no rashes or lesions noted <Alie Abarca PA-C - Last Filed: 06/14/20 18:31> Neuro: General: patient oriented x3 <Alie Abarca PA-C - Last Filed: 06/14/20 18:31> Extrem: General: Yes normal to inspection <Alie Abarca PA-C - Last Filed: 06/14/20 18:31> Psych: Appearance: disheveled <Alie Abarca PA-C - Last Filed: 06/14/20 18:31> Speech and movement: Normal speech and movement present <Alie Abarca PA-C - Last Filed: 06/14/20 18:31> Affect: Sad affect present (teary) <Alie Abarca PA-C - Last Filed: 06/14/20 18:31> Attitude: cooperative <Alie Abarca PA-C - Last Filed: 06/14/20 18:31> Thought process: Normal thought process present <Alie Abarca PA-C - Last Filed: 06/14/20 18:31> Thought content: Suicidality present, no homicidality and Hallucination(s) present auditory <Alie Abarca PA-C - Last Filed: 06/14/20 18:31> Course Course Course Narrative: 50-year-old male with past medical history significant for MDD, GERD, anxiety, chest pain and dysphagia presents with SI. Physical exam to patient is extremely diaphoretic but is vital signs are stable. Will do lab workup including troponin and an EKG, tox screen and BH in consult. Labs WNL, troponin negative, EKG sinus Aaron, COVID negative, patient was positive for opioids and cocaine. Patient is medically cleared Pending crisis evaluation for SI <Alie Abarca PA-C - Last Filed: 06/14/20 18:31> I have reviewed the chart <Keyshawn Aragon MD - Last Filed: 07/02/20 09:11> Reevaluation(s) Reevaluation #1: [id number] 06/14/2020 Placement physicians vision at this time, has remained calm and cooperative did have some nausea this a.m. after eating breakfast requested Zofran. Otherwise offers no other medical complaints. Vitals are stable abdominal exam benign lung sounds CTA, pink warm dry, VSS, NAD. Plan for psychiatric evaluation which he is waiting for crisis team. <Frank Vale NP - Last Filed: 06/14/20 17:20> MDM - Psych Lab Data Result diagrams: : 06/14/20 01:33 06/14/20 01:33 <Alie Abarca PA-C - Last Filed: 06/14/20 18:31> Labs: Lab Results 06/13/20 06/14/20 06/14/20 Range/Units 23:50 00:37 01:33 WBC 5.0 (4.8-10.8) X10*3/uL RBC 3.41 L (4.60-5.80) X10*6/uL Hgb 10.8 L (14.0-18.0) g/dl Hct 33.1 L (42-52) % MCV 97.1 (80-98) fL MCH 31.7 (27.0-33.0) pg MCHC 32.6 (31.0-36.0) g/dl RDW 13.4 (11.0-16.0) % Plt Count 160 (160-400) X10*3/uL MPV 9.9 (9.4-12.4) fL Immature Gran % (Auto) 0.2 (0.0-0.4) % Neut % (Auto) 55.6 (45-73) % Lymph % (Auto) 31.8 (20-40) % [place] % (Auto) 8.0 (2-11) % Eos % (Auto) 3.8 (0-4) % Baso % (Auto) 0.6 (0-2) % Lymph # (Auto) 1.6 (1.2-4.9) X10*3/uL [place] # (Auto) 0.4 (0.1-1.2) X10*3/uL Eos # (Auto) 0.2 (0.0-0.4) X10*3/uL Baso # (Auto) 0.0 (0.0-0.2) X10*3/uL Abs Immat Gran (auto) 0.01 (0.00-0.03) X10*3/uL Absolute Neuts (auto) 2.8 (2.0-8.3) X10*3/uL Absolute Nucleated RBC 0.000 (0.0-0.012) X10*3/uL Nucleated RBC % (auto) 0.0 (0.0-0.2) /100WBC Sodium (135-145) mmol/L Potassium (3.3-5.1) mmol/L Chloride (96-108) mmol/L Carbon Dioxide (22-29) mmol/L Anion Gap (12-20) BUN (9-16) mg/dL Creatinine (0.5-1.4) mg/dL Estim Creat Clear Calc Estimated GFR Random Glucose (60-115) mg/dL Calcium (8.4-10.2) mg/dL Troponin I High Sens (<3.5-35.0) ng/L Urine Opiates Screen POSITIVE H (Not Detect) Ur Barbiturates Screen Not Detected (Not Detect) Valproic Acid (50.0-100.0) mcg/mL Ur Phencyclidine Scrn Not Detected (Not Detect) Ur Amphetamines Screen Not Detected (Not Detect) U Benzodiazepines Scrn Not Detected (Not Detect) Urine Cocaine Screen POSITIVE H (Not Detect) U Marijuana (THC) Screen Not Detected (Not Detect) Ethyl Alcohol mg/dL COVID-19 (ERIN) Negative (Negative) COVID-19 Clin Com See Note 06/14/20 06/14/20 06/14/20 Range/Units 01:33 01:33 01:33 WBC (4.8-10.8) X10*3/uL RBC (4.60-5.80) X10*6/uL Hgb (14.0-18.0) g/dl Hct (42-52) % MCV (80-98) fL MCH (27.0-33.0) pg MCHC (31.0-36.0) g/dl RDW (11.0-16.0) % Plt Count (160-400) X10*3/uL MPV (9.4-12.4) fL Immature Gran % (Auto) (0.0-0.4) % Neut % (Auto) (45-73) % Lymph % (Auto) (20-40) % [place] % (Auto) (2-11) % Eos % (Auto) (0-4) % Baso % (Auto) (0-2) % Lymph # (Auto) (1.2-4.9) X10*3/uL [place] # (Auto) (0.1-1.2) X10*3/uL Eos # (Auto) (0.0-0.4) X10*3/uL Baso # (Auto) (0.0-0.2) X10*3/uL Abs Immat Gran (auto) (0.00-0.03) X10*3/uL Absolute Neuts (auto) (2.0-8.3) X10*3/uL Absolute Nucleated RBC (0.0-0.012) X10*3/uL Nucleated RBC % (auto) (0.0-0.2) /100WBC Sodium 140 (135-145) mmol/L Potassium 3.5 (3.3-5.1) mmol/L Chloride 101 (96-108) mmol/L Carbon Dioxide 33 H (22-29) mmol/L Anion Gap 10 L (12-20) BUN 10 (9-16) mg/dL Creatinine 0.65 (0.5-1.4) mg/dL Estim Creat Clear Calc 115.6 Estimated GFR > 60 Random Glucose 93 (60-115) mg/dL Calcium 8.8 (8.4-10.2) mg/dL Troponin I High Sens < 3.5 (<3.5-35.0) ng/L Urine Opiates Screen (Not Detect) Ur Barbiturates Screen (Not Detect) Valproic Acid (50.0-100.0) mcg/mL Ur Phencyclidine Scrn (Not Detect) Ur Amphetamines Screen (Not Detect) U Benzodiazepines Scrn (Not Detect) Urine Cocaine Screen (Not Detect) U Marijuana (THC) Screen (Not Detect) Ethyl Alcohol < 10 mg/dL COVID-19 (ERNI) (Negative) COVID-19 Clin Com 06/14/20 Range/Units 01:33 WBC (4.8-10.8) X10*3/uL RBC (4.60-5.80) X10*6/uL Hgb (14.0-18.0) g/dl Hct (42-52) % MCV (80-98) fL MCH (27.0-33.0) pg MCHC (31.0-36.0) g/dl RDW (11.0-16.0) % Plt Count (160-400) X10*3/uL MPV (9.4-12.4) fL Immature Gran % (Auto) (0.0-0.4) % Neut % (Auto) (45-73) % Lymph % (Auto) (20-40) % [place] % (Auto) (2-11) % Eos % (Auto) (0-4) % Baso % (Auto) (0-2) % Lymph # (Auto) (1.2-4.9) X10*3/uL [place] # (Auto) (0.1-1.2) X10*3/uL Eos # (Auto) (0.0-0.4) X10*3/uL Baso # (Auto) (0.0-0.2) X10*3/uL Abs Immat Gran (auto) (0.00-0.03) X10*3/uL Absolute Neuts (auto) (2.0-8.3) X10*3/uL Absolute Nucleated RBC (0.0-0.012) X10*3/uL Nucleated RBC % (auto) (0.0-0.2) /100WBC Sodium (135-145) mmol/L Potassium (3.3-5.1) mmol/L Chloride (96-108) mmol/L Carbon Dioxide (22-29) mmol/L Anion Gap (12-20) BUN (9-16) mg/dL Creatinine (0.5-1.4) mg/dL Estim Creat Clear Calc Estimated GFR Random Glucose (60-115) mg/dL Calcium (8.4-10.2) mg/dL Troponin I High Sens (<3.5-35.0) ng/L Urine Opiates Screen (Not Detect) Ur Barbiturates Screen (Not Detect) Valproic Acid 5.9 L (50.0-100.0) mcg/mL Ur Phencyclidine Scrn (Not Detect) Ur Amphetamines Screen (Not Detect) U Benzodiazepines Scrn (Not Detect) Urine Cocaine Screen (Not Detect) U Marijuana (THC) Screen (Not Detect) Ethyl Alcohol mg/dL COVID-19 (ERIN) (Negative) COVID-19 Clin Com <Alie Abarca PA-C - Last Filed: 06/14/20 18:31> Lab Results 06/13/20 06/14/20 06/14/20 Range/Units 23:50 00:37 01:33 WBC 5.0 (4.8-10.8) X10*3/uL RBC 3.41 L (4.60-5.80) X10*6/uL Hgb 10.8 L (14.0-18.0) g/dl Hct 33.1 L (42-52) % MCV 97.1 (80-98) fL MCH 31.7 (27.0-33.0) pg MCHC 32.6 (31.0-36.0) g/dl RDW 13.4 (11.0-16.0) % Plt Count 160 (160-400) X10*3/uL MPV 9.9 (9.4-12.4) fL Immature Gran % (Auto) 0.2 (0.0-0.4) % Neut % (Auto) 55.6 (45-73) % Lymph % (Auto) 31.8 (20-40) % [place] % (Auto) 8.0 (2-11) % Eos % (Auto) 3.8 (0-4) % Baso % (Auto) 0.6 (0-2) % Lymph # (Auto) 1.6 (1.2-4.9) X10*3/uL [place] # (Auto) 0.4 (0.1-1.2) X10*3/uL Eos # (Auto) 0.2 (0.0-0.4) X10*3/uL Baso # (Auto) 0.0 (0.0-0.2) X10*3/uL Abs Immat Gran (auto) 0.01 (0.00-0.03) X10*3/uL Absolute Neuts (auto) 2.8 (2.0-8.3) X10*3/uL Absolute Nucleated RBC 0.000 (0.0-0.012) X10*3/uL Nucleated RBC % (auto) 0.0 (0.0-0.2) /100WBC Sodium (135-145) mmol/L Potassium (3.3-5.1) mmol/L Chloride (96-108) mmol/L Carbon Dioxide (22-29) mmol/L Anion Gap (12-20) BUN (9-16) mg/dL Creatinine (0.5-1.4) mg/dL Estim Creat Clear Calc Estimated GFR Random Glucose (60-115) mg/dL Calcium (8.4-10.2) mg/dL Troponin I High Sens (<3.5-35.0) ng/L Urine Opiates Screen POSITIVE H (Not Detect) Ur Barbiturates Screen Not Detected (Not Detect) Valproic Acid (50.0-100.0) mcg/mL Ur Phencyclidine Scrn Not Detected (Not Detect) Ur Amphetamines Screen Not Detected (Not Detect) U Benzodiazepines Scrn Not Detected (Not Detect) Urine Cocaine Screen POSITIVE H (Not Detect) U Marijuana (THC) Screen Not Detected (Not Detect) Ethyl Alcohol mg/dL COVID-19 (ERIN) Negative (Negative) COVID-19 Clin Com See Note 06/14/20 06/14/20 06/14/20 Range/Units 01:33 01:33 01:33 WBC (4.8-10.8) X10*3/uL RBC (4.60-5.80) X10*6/uL Hgb (14.0-18.0) g/dl Hct (42-52) % MCV (80-98) fL MCH (27.0-33.0) pg MCHC (31.0-36.0) g/dl RDW (11.0-16.0) % Plt Count (160-400) X10*3/uL MPV (9.4-12.4) fL Immature Gran % (Auto) (0.0-0.4) % Neut % (Auto) (45-73) % Lymph % (Auto) (20-40) % [place] % (Auto) (2-11) % Eos % (Auto) (0-4) % Baso % (Auto) (0-2) % Lymph # (Auto) (1.2-4.9) X10*3/uL [place] # (Auto) (0.1-1.2) X10*3/uL Eos # (Auto) (0.0-0.4) X10*3/uL Baso # (Auto) (0.0-0.2) X10*3/uL Abs Immat Gran (auto) (0.00-0.03) X10*3/uL Absolute Neuts (auto) (2.0-8.3) X10*3/uL Absolute Nucleated RBC (0.0-0.012) X10*3/uL Nucleated RBC % (auto) (0.0-0.2) /100WBC Sodium 140 (135-145) mmol/L Potassium 3.5 (3.3-5.1) mmol/L Chloride 101 (96-108) mmol/L Carbon Dioxide 33 H (22-29) mmol/L Anion Gap 10 L (12-20) BUN 10 (9-16) mg/dL Creatinine 0.65 (0.5-1.4) mg/dL Estim Creat Clear Calc 115.6 Estimated GFR > 60 Random Glucose 93 (60-115) mg/dL Calcium 8.8 (8.4-10.2) mg/dL Troponin I High Sens < 3.5 (<3.5-35.0) ng/L Urine Opiates Screen (Not Detect) Ur Barbiturates Screen (Not Detect) Valproic Acid (50.0-100.0) mcg/mL Ur Phencyclidine Scrn (Not Detect) Ur Amphetamines Screen (Not Detect) U Benzodiazepines Scrn (Not Detect) Urine Cocaine Screen (Not Detect) U Marijuana (THC) Screen (Not Detect) Ethyl Alcohol < 10 mg/dL COVID-19 (ERIN) (Negative) COVID-19 Clin Com 06/14/20 Range/Units 01:33 WBC (4.8-10.8) X10*3/uL RBC (4.60-5.80) X10*6/uL Hgb (14.0-18.0) g/dl Hct (42-52) % MCV (80-98) fL MCH (27.0-33.0) pg MCHC (31.0-36.0) g/dl RDW (11.0-16.0) % Plt Count (160-400) X10*3/uL MPV (9.4-12.4) fL Immature Gran % (Auto) (0.0-0.4) % Neut % (Auto) (45-73) % Lymph % (Auto) (20-40) % [place] % (Auto) (2-11) % Eos % (Auto) (0-4) % Baso % (Auto) (0-2) % Lymph # (Auto) (1.2-4.9) X10*3/uL [place] # (Auto) (0.1-1.2) X10*3/uL Eos # (Auto) (0.0-0.4) X10*3/uL Baso # (Auto) (0.0-0.2) X10*3/uL Abs Immat Gran (auto) (0.00-0.03) X10*3/uL Absolute Neuts (auto) (2.0-8.3) X10*3/uL Absolute Nucleated RBC (0.0-0.012) X10*3/uL Nucleated RBC % (auto) (0.0-0.2) /100WBC Sodium (135-145) mmol/L Potassium (3.3-5.1) mmol/L Chloride (96-108) mmol/L Carbon Dioxide (22-29) mmol/L Anion Gap (12-20) BUN (9-16) mg/dL Creatinine (0.5-1.4) mg/dL Estim Creat Clear Calc Estimated GFR Random Glucose (60-115) mg/dL Calcium (8.4-10.2) mg/dL Troponin I High Sens (<3.5-35.0) ng/L Urine Opiates Screen (Not Detect) Ur Barbiturates Screen (Not Detect) Valproic Acid 5.9 L (50.0-100.0) mcg/mL Ur Phencyclidine Scrn (Not Detect) Ur Amphetamines Screen (Not Detect) U Benzodiazepines Scrn (Not Detect) Urine Cocaine Screen (Not Detect) U Marijuana (THC) Screen (Not Detect) Ethyl Alcohol mg/dL COVID-19 (ERIN) (Negative) COVID-19 Clin Com <Frank Vale NP - Last Filed: 06/14/20 17:20> Lab Results 06/13/20 06/14/20 06/14/20 Range/Units 23:50 00:37 01:33 WBC 5.0 (4.8-10.8) X10*3/uL RBC 3.41 L (4.60-5.80) X10*6/uL Hgb 10.8 L (14.0-18.0) g/dl Hct 33.1 L (42-52) % MCV 97.1 (80-98) fL MCH 31.7 (27.0-33.0) pg MCHC 32.6 (31.0-36.0) g/dl RDW 13.4 (11.0-16.0) % Plt Count 160 (160-400) X10*3/uL MPV 9.9 (9.4-12.4) fL Immature Gran % (Auto) 0.2 (0.0-0.4) % Neut % (Auto) 55.6 (45-73) % Lymph % (Auto) 31.8 (20-40) % [place] % (Auto) 8.0 (2-11) % Eos % (Auto) 3.8 (0-4) % Baso % (Auto) 0.6 (0-2) % Lymph # (Auto) 1.6 (1.2-4.9) X10*3/uL [place] # (Auto) 0.4 (0.1-1.2) X10*3/uL Eos # (Auto) 0.2 (0.0-0.4) X10*3/uL Baso # (Auto) 0.0 (0.0-0.2) X10*3/uL Abs Immat Gran (auto) 0.01 (0.00-0.03) X10*3/uL Absolute Neuts (auto) 2.8 (2.0-8.3) X10*3/uL Absolute Nucleated RBC 0.000 (0.0-0.012) X10*3/uL Nucleated RBC % (auto) 0.0 (0.0-0.2) /100WBC Sodium (135-145) mmol/L Potassium (3.3-5.1) mmol/L Chloride (96-108) mmol/L Carbon Dioxide (22-29) mmol/L Anion Gap (12-20) BUN (9-16) mg/dL Creatinine (0.5-1.4) mg/dL Estim Creat Clear Calc Estimated GFR Random Glucose (60-115) mg/dL Calcium (8.4-10.2) mg/dL Troponin I High Sens (<3.5-35.0) ng/L Urine Opiates Screen POSITIVE H (Not Detect) Ur Barbiturates Screen Not Detected (Not Detect) Valproic Acid (50.0-100.0) mcg/mL Ur Phencyclidine Scrn Not Detected (Not Detect) Ur Amphetamines Screen Not Detected (Not Detect) U Benzodiazepines Scrn Not Detected (Not Detect) Urine Cocaine Screen POSITIVE H (Not Detect) U Marijuana (THC) Screen Not Detected (Not Detect) Ethyl Alcohol mg/dL COVID-19 (ERIN) Negative (Negative) COVID-19 Clin Com See Note 06/14/20 06/14/20 06/14/20 Range/Units 01:33 01:33 01:33 WBC (4.8-10.8) X10*3/uL RBC (4.60-5.80) X10*6/uL Hgb (14.0-18.0) g/dl Hct (42-52) % MCV (80-98) fL MCH (27.0-33.0) pg MCHC (31.0-36.0) g/dl RDW (11.0-16.0) % Plt Count (160-400) X10*3/uL MPV (9.4-12.4) fL Immature Gran % (Auto) (0.0-0.4) % Neut % (Auto) (45-73) % Lymph % (Auto) (20-40) % [place] % (Auto) (2-11) % Eos % (Auto) (0-4) % Baso % (Auto) (0-2) % Lymph # (Auto) (1.2-4.9) X10*3/uL [place] # (Auto) (0.1-1.2) X10*3/uL Eos # (Auto) (0.0-0.4) X10*3/uL Baso # (Auto) (0.0-0.2) X10*3/uL Abs Immat Gran (auto) (0.00-0.03) X10*3/uL Absolute Neuts (auto) (2.0-8.3) X10*3/uL Absolute Nucleated RBC (0.0-0.012) X10*3/uL Nucleated RBC % (auto) (0.0-0.2) /100WBC Sodium 140 (135-145) mmol/L Potassium 3.5 (3.3-5.1) mmol/L Chloride 101 (96-108) mmol/L Carbon Dioxide 33 H (22-29) mmol/L Anion Gap 10 L (12-20) BUN 10 (9-16) mg/dL Creatinine 0.65 (0.5-1.4) mg/dL Estim Creat Clear Calc 115.6 Estimated GFR > 60 Random Glucose 93 (60-115) mg/dL Calcium 8.8 (8.4-10.2) mg/dL Troponin I High Sens < 3.5 (<3.5-35.0) ng/L Urine Opiates Screen (Not Detect) Ur Barbiturates Screen (Not Detect) Valproic Acid (50.0-100.0) mcg/mL Ur Phencyclidine Scrn (Not Detect) Ur Amphetamines Screen (Not Detect) U Benzodiazepines Scrn (Not Detect) Urine Cocaine Screen (Not Detect) U Marijuana (THC) Screen (Not Detect) Ethyl Alcohol < 10 mg/dL COVID-19 (ERIN) (Negative) COVID-19 Clin Com 06/14/20 Range/Units 01:33 WBC (4.8-10.8) X10*3/uL RBC (4.60-5.80) X10*6/uL Hgb (14.0-18.0) g/dl Hct (42-52) % MCV (80-98) fL MCH (27.0-33.0) pg MCHC (31.0-36.0) g/dl RDW (11.0-16.0) % Plt Count (160-400) X10*3/uL MPV (9.4-12.4) fL Immature Gran % (Auto) (0.0-0.4) % Neut % (Auto) (45-73) % Lymph % (Auto) (20-40) % [place] % (Auto) (2-11) % Eos % (Auto) (0-4) % Baso % (Auto) (0-2) % Lymph # (Auto) (1.2-4.9) X10*3/uL [place] # (Auto) (0.1-1.2) X10*3/uL Eos # (Auto) (0.0-0.4) X10*3/uL Baso # (Auto) (0.0-0.2) X10*3/uL Abs Immat Gran (auto) (0.00-0.03) X10*3/uL Absolute Neuts (auto) (2.0-8.3) X10*3/uL Absolute Nucleated RBC (0.0-0.012) X10*3/uL Nucleated RBC % (auto) (0.0-0.2) /100WBC Sodium (135-145) mmol/L Potassium (3.3-5.1) mmol/L Chloride (96-108) mmol/L Carbon Dioxide (22-29) mmol/L Anion Gap (12-20) BUN (9-16) mg/dL Creatinine (0.5-1.4) mg/dL Estim Creat Clear Calc Estimated GFR Random Glucose (60-115) mg/dL Calcium (8.4-10.2) mg/dL Troponin I High Sens (<3.5-35.0) ng/L Urine Opiates Screen (Not Detect) Ur Barbiturates Screen (Not Detect) Valproic Acid 5.9 L (50.0-100.0) mcg/mL Ur Phencyclidine Scrn (Not Detect) Ur Amphetamines Screen (Not Detect) U Benzodiazepines Scrn (Not Detect) Urine Cocaine Screen (Not Detect) U Marijuana (THC) Screen (Not Detect) Ethyl Alcohol mg/dL COVID-19 (ERIN) (Negative) COVID-19 Clin Com <Keyshawn Aragon MD - Last Filed: 07/02/20 09:11> Discharge Plan Discharge Clinical Impression: Anxiety, Cocaine substance abuse, Opiate abuse, continuous <Alie Abarca PA-C - Last Filed: 06/14/20 18:31> Patient Disposition: Home, Self-Care <Alie Abarca PA-C - Last Filed: 06/14/20 18:31> Instructions: Polysubstance Abuse (ED) <Alie Abarca PA-C - Last Filed: 06/14/20 18:31> Additional Instructions: Please go to detox Return if any concerns or worsening symptoms Thank you <Alie Abarca PA-C - Last Filed: 06/14/20 18:31> Prescriptions: New clonazepam [Klonopin] 1 mg tablet 1 mg PO BEDTIME Qty: 1 RF: 0 clonazepam [Klonopin] 1 mg tablet 1 mg PO BEDTIME Qty: 1 RF: 0 No Action simethicone [Gas Relief (simethicone)] 125 mg tablet,chewable 125 mg PO QID PRN (Reason: abdominal distention, gas) 30 Days Qty: 120 RF: 3 sennosides [Senna Laxative] 8.6 mg tablet 8.6 - 17.2 mg PO BID PRN (Reason: constipation) 30 Days Qty: 90 RF: 0 loperamide [Anti-Diarrheal (loperamide)] 2 mg tablet 2 mg PO QID PRN (Reason: loose stool) 30 Days Qty: 120 RF: 1 atenolol 25 mg tablet 25 mg PO DAILY Qty: 30 RF: 0 tamsulosin 0.4 mg capsule 0.4 mg PO DAILY Qty: 30 RF: 0 omeprazole 20 mg capsule,delayed release(DR/EC) 20 mg PO DAILY Qty: 30 RF: 0 zolpidem 10 mg Tablet 10 mg PO BEDTIME PRN (Reason: Insomnia) Qty: 30 RF: 0 albuterol sulfate [ProAir HFA] 90 mcg/actuation HFA aerosol inhaler 1 puff inhalation QID PRN (Reason: Shortness Of Breath Or Wheezing) Qty: 1 RF: 0 clonidine HCl 0.3 mg tablet 1 tab PO BEDTIME RF: 0 mirtazapine 45 mg tablet 1 tab PO BEDTIME RF: 0 ondansetron 4 mg tablet,disintegrating 1 tab PO DAILY PRN (Reason: nausea/vomiting) RF: 0 aripiprazole 30 mg tablet 1 tab PO DAILY RF: 0 lactulose 20 gram/30 mL solution 20 g PO DAILY PRN (Reason: Constipation) RF: 0 divalproex 500 mg Tablet,Delayed Release (Dr/Ec) 500 mg PO BID RF: 0 clonazepam [Klonopin] 1 mg tablet 1 mg PO BID RF: 0 haloperidol 1 mg tablet 1 mg PO BID PRN (Reason: RESTLESSNESS) RF: 0 amitriptyline 25 mg tablet 100 mg PO BEDTIME RF: 0 <Alie Abarca PA-C - Last Filed: 06/14/20 18:31> Referrals: Physician,Unknown [Primary Care Provider] - 2 days ([facility]) <Alie Abarca PA-C - Last Filed: 06/14/20 18:31> Interventions: ED Discharge Assessment Last Done: 06/14/20 18:35 <Alie Abarca PA-C - Last Filed: 06/14/20 18:31> Discharge Date/Time: 06/14/20 18:36 <Alie Abarca PA-C - Last Filed: 06/14/20 18:31>
[2020-06-14 01:05] LABS: Amphetamine Screen Urine Not Detected (Not Detect); Barbiturates, Urine Not Detected (Not Detect); Benzodiazepines Screen Urine Not Detected (Not Detect); Cannabinoid Screen Urine Not Detected (Not Detect); Cocaine Screen Urine POSITIVE (Not Detect); Opiate Screen Urine POSITIVE (Not Detect); Phencyclidine Screen Urine Not Detected (Not Detect)
[2020-06-14 01:38] LABS: MANUAL DIFF FLAG NO
[2020-06-14 01:40] LABS: Basophils Percent Auto 0.6 % (0-2); Eosinophils Absolute Auto 0.2 X10*3/uL (0.0-0.4); Eosinophils Percent Auto 3.8 % (0-4); Hematocrit 33.1 % (42-52); Hemoglobin 10.8 g/dl (14.0-18.0); Imm Gran Abs Auto 0.01 X10*3/uL (0.00-0.03); Imm Gran Pct Auto 0.2 % (0.0-0.4); Lymphocytes Absolute Auto 1.6 X10*3/uL (1.2-4.9); Lymphocytes Percent Auto 31.8 % (20-40); Mean Corpuscular HGB Conc 32.6 g/dl (31.0-36.0); Mean Corpuscular Hemoglobin 31.7 pg (27.0-33.0); Mean Corpuscular Volume 97.1 fL (80-98); Mean Platelet Volume 9.9 fL (9.4-12.4); Monocytes Absolute Auto 0.4 X10*3/uL (0.1-1.2); Neutrophils Absolute Auto 2.8 X10*3/uL (2.0-8.3); Neutrophils Percent Auto 55.6 % (45-73); Platelet Count 160 X10*3/uL (160-400); Red Blood Count 3.41 X10*6/uL (4.60-5.80); Red Cell Distribution Width 13.4 % (11.0-16.0)
[2020-06-14 02:03] LABS: Troponin-I High Sensitivity < 3.5 ng/L (<3.5-35.0)
[2020-06-14 02:07] LABS: Ethanol < 10 mg/dL
[2020-06-14 02:09] LABS: Anion Gap 10 (12-20); Blood Urea Nitrogen 10 mg/dL (9-16); Calcium 8.8 mg/dL (8.4-10.2); Carbon Dioxide 33 mmol/L (22-29); Chloride 101 mmol/L (96-108); Creatinine Clr Calc Pharmacy 115.6; Estimated Glomerular Filt Rate > 60; Glucose Random 93 mg/dL (60-115); Potassium 3.5 mmol/L (3.3-5.1); Sodium 140 mmol/L (135-145)
[2020-06-14 02:16] LABS: Valproate 5.9 mcg/mL (50.0-100.0)
[2020-06-14] MEDS: Acetaminophen 325 MG TABLET 650 MG PO (05:39)
[2020-06-14 06:00] VITALS: RESP 16
--- NOTE | 2020-06-14 07:07 | PC.NURSE ---
Report received. PT currently resting, calm and cooperative. Pt waiting to be seen by N.
[2020-06-14 09:03] VITALS: BP 115/62; PULSE 63; RESP 16; TEMP 36.6; O2SAT 99
[2020-06-14 11:15] VITALS: BP 115/62; PULSE 63
[2020-06-14] MEDS: Omeprazole 20 MG CAPSULE.DR PO (11:15)
[2020-06-14] MEDS: clonazePAM 1 MG TABLET PO (11:15)
[2020-06-14] MEDS: Tamsulosin HCL 0.4 MG CAPSULE PO (11:15)
[2020-06-14] MEDS: Divalproex Sodium 500 MG TABLET.DR PO (11:15)
[2020-06-14] MEDS: atenoloL 25 MG TABLET PO (11:15)
--- NOTE | 2020-06-14 11:20 | PC.NURSE ---
PT asking about plan of care, explained he is waiting to see crisis. PT states he does not want to go home, reports that he wants to kill himself. PT reporting visual hallucinations - states he is seeing a monster. PT states that if he were to go home he would kill himself. PT states he feels safe here, denies intent to harm himself while in the hospital.
--- NOTE | 2020-06-14 16:07 | PC.NURSE ---
Addendum entered by Tarah Monique 06/14/20 16:09: PT requested x-ray. Original Note: PT reported left arm pain, states he fell a couple of days ago. Provider notified. Verbal order for shoulder x-ray.
[2020-06-14] MEDS: HaloperidoL 1 MG TABLET PO (16:10)
[2020-06-14] MEDS: Loperamide HCl 2 MG CAPSULE PO (17:38)
[2020-06-14 18:00] VITALS: BP 121/60; PULSE 59; RESP 18; TEMP 36.8; O2SAT 96
== END 2020-06-14 18:36 | disposition home or self-care (01) ==
PROVIDERS: Emergency Medicine; Physician Assistant; Emergency Provider Student in an Organized Health Care Education/Training Program
DX: F33.1 Major depressive disorder, recurrent, moderate (principal); R45.851 Suicidal ideations; R07.9 Chest pain, unspecified; R13.10 Dysphagia, unspecified; R44.0 Auditory hallucinations; Z79.899 Other long term (current) drug therapy; F17.210 Nicotine dependence, cigarettes, uncomplicated; Z71.6 Tobacco abuse counseling; Z20.822 Contact with and (suspected) exposure to COVID-19
CPT/HCPCS: 36415; 73030; 80048; 80164; 80307; 80320; 84484; 85025; 87635; 93005; 99284

== ENCOUNTER 2020-07-04 09:57 | Emergency (ER) | payer MEDICAID, SELFPAY ==
--- NOTE | ~2020-07-04 | XR_ITS ---
EXAMINATION: XR ABDOMEN KUB CLINICAL INDICATION: Constipation. Question bowel obstruction. COMPARISON: KUB October [address] of the abdomen and pelvis March 2020 TECHNIQUE: AP view of the abdomen. FINDINGS: There is stool throughout the colon suggestive of constipation. There are no dilated loops of bowel to suggest obstruction. There is no evidence of free air. No calcifications are seen. There are postsurgical changes at L3-L4. XR/XR KUB IMPRESSION: Constipation. No evidence of obstruction.
[2020-07-04 10:48] VITALS: BP 136/66; PULSE 77; RESP 18; TEMP 36.7; O2SAT 98; BMI 22.4
--- NOTE | 2020-07-04 11:19 | ED_ITS ---
HPI - General Adult General Chief complaint: General Medical Stated complaint: constipated, unable to urinate Time Seen by Provider: 07/04/20 11:03 Source: patient Mode of arrival: ambulatory Limitations: no limitations History of Present Illness HPI narrative: Patient presents to ED constipation for for 4 days and urinary tension for 2 days. Patient denies any nausea, vomiting, dysuria, fever, chills, or flank pain. Patient denies any abdominal pain. Related Data Home Medications Medication Instructions Recorded Confirmed clonazepam 1 mg tablet 1 mg PO BID tab 04/25/20 06/14/20 haloperidol 1 mg tablet 1 mg PO BID PRN 04/25/20 06/14/20 amitriptyline 25 mg tablet 100 mg PO BEDTIME tab 04/26/20 06/14/20 aripiprazole 1 tab PO DAILY 05/22/20 06/14/20 clonidine HCl 1 tab PO BEDTIME 05/22/20 06/14/20 lactulose 20 g PO DAILY PRN 05/22/20 06/14/20 mirtazapine 1 tab PO BEDTIME 05/22/20 06/14/20 ondansetron 1 tab PO DAILY PRN 05/22/20 06/14/20 divalproex 500 mg PO BID 06/14/20 06/14/20 Previous Rx's Medication Instructions Recorded simethicone 125 mg chewable tablet 125 mg PO QID PRN 30 Days #120 tab 02/10/20 albuterol sulfate [ProAir HFA] 1 puff INHALATION QID PRN #1 g 02/21/20 atenolol 25 mg PO DAILY #30 tab 02/21/20 omeprazole 20 mg PO DAILY #30 cap 02/21/20 tamsulosin 0.4 mg PO DAILY #30 cap 02/21/20 zolpidem 10 mg PO BEDTIME PRN #30 tab 02/21/20 sennosides 8.6 mg tablet 8.6 - 17.2 mg PO BID PRN 30 Days 03/22/20 #90 tab loperamide 2 mg tablet 2 mg PO QID PRN 30 Days #120 tab 06/07/20 clonazepam [Klonopin] 1 mg PO BEDTIME #1 tab 06/14/20 clonazepam [Klonopin] 1 mg PO BEDTIME #1 tab 06/14/20 polyethylene glycol 3350 [Miralax] 17 g PO DAILY 7 Days #119 g 07/04/20 Allergies Allergy/AdvReac Type Severity Reaction Status Date / Time trazodone [TRAZODONE] Allergy Severe FACIAL Verified 04/07/20 09:20 SWELLING, swelling cat dander [CATS] Allergy Intermediate FACIAL Verified 04/07/20 09:20 ITCHING doxepin [DOXEPIN] Allergy Intermediate WEIGHT Verified 04/07/20 09:20 GAIN/LEG SWELLING Iodinated Contrast Media Allergy Intermediate ITCHING Verified 04/07/20 09:20 [IV DYE, IODINE CONTAINING CONTRAST ] nitroglycerin [NITROGLYCERIN] Allergy Unknown UNKNOWN Verified 04/07/20 09:20 tramadol [TRAMADOL] Allergy Unknown UNKNOWN, Verified 04/07/20 09:20 dry mouth ibuprofen [From MOTRIN] AdvReac Intermediate GI UPSET Verified 04/07/20 09:20 quetiapine [From SEROQUEL] AdvReac Intermediate FACIAL Verified 04/07/20 09:20 SWELLING aspirin [ASPIRIN] AdvReac Mild Stomach Verified 04/07/20 09:20 Upset Ibuprofen Allergy Unknown stomach Uncoded 04/07/20 09:20 ache IV contrast Allergy Unknown Unknown Uncoded 04/07/20 09:20 Motrin Allergy Unknown stomach Uncoded 04/07/20 09:20 pain Review of Systems Review of Systems: Yes all other systems are reviewed and are negative Constitutional: Constitutional: Reports as per HPI and Reports no additional constitutional complaints Eyes: Eyes: Reports as per HPI and Reports no additional eye complaints ENT: Reports system reviewed and no additional complaints, except as documented and Reports as per HPI Cardiovascular: Cardiovascular: Reports as per HPI and Reports no additional cardiovascular complaints Respiratory: Respiratory: Reports no additional respiratory complaints Gastrointestinal: Gastrointestinal: Reports as per HPI, Reports no additional gastrointestinal complaints and Reports constipation Genitourinary: Genitourinary: Reports no additional male genitourinary complaints and Reports as per HPI Comments: Urinary retention Musculoskeletal: Musculoskeletal: Reports no additional musculoskeletal complaints and Reports as per HPI Neurologic: Reports system reviewed and no additional complaints, except as documented and Reports as per HPI Psychiatric: Psychiatric: Reports no additional psychiatric complaints and Reports as per HPI [facility] Past Medical History Medical History Anxiety Chest pain Dysphagia GERD (gastroesophageal reflux disease) Weight loss Surgical History H/O umbilical hernia repair History of colonoscopy History of cystoscopy Family History Family History Father HTN (hypertension) Diabetes Mother HTN (hypertension) Stroke Alzheimer disease Heart disease Social History Social History Household Members: Friend(s) Housing: House Alcohol intake: unknown Smoking Status: Unknown if ever smoked Tobacco Type: Cigarette Packs Per Day: 1 Cigarettes Per Day: 15 Years Smoked: 9 Second Hand Smoke Exposure: Yes Advance Directives: Yes Advance Directives on File: Yes Advance Directives Date on File: 02/24/20 service: No Sexual orientation: Straight/Heterosexual Physical Exam Vital Signs: Vital Signs: Last Vital Signs Temp 98.1 F 07/04/20 10:48 Pulse 77 07/04/20 10:48 Resp 18 07/04/20 10:48 BP 136/66 07/04/20 10:48 Pulse Ox 98 07/04/20 10:48 Body Mass Index 22.4 Const: General: cooperative, healthy appearing, comfortable, no acute distress, well developed, alert and awake Orientation/consciousness: oriented to time and patient oriented x3 HENMT: Head: Yes normal to inspection, Yes No palpable skull fracture present, Yes normocephalic and Yes atraumatic Eyes: General: appearance normal, both eyes and all related structures Neck: Neck: Yes normal visual inspection, Yes full ROM, Yes no lymphadenopathy, Yes no meningeal signs, Yes trachea midline, Yes supple and No tender Chest: Chest palpation & inspection: normal inspection of the chest and normal palpation of entire chest wall Resp: Effort & Inspection: normal respiratory effort and able to speak in complete sentences Auscultation: clear to auscultation bilaterally Cardio: Jugular venous distension: no JVD Heart sounds: S1 normal heart sound present and S2 normal heart sound present GI: Other: Rectal exam positive for stool at the rectum. Inspection: Yes normal to inspection, No abdominal wall ecchymosis, No Abdominal wall edema and No distended Palpation (GI): Soft to palpation, not firm, nontender, no guarding and not rigid : General: No CVA tenderness and Yes no CVA tenderness Back/Spine/Pelvis: Back: no CVA tenderness, No CVA tenderness and No back tenderness Skin: General skin exam: no rashes or lesions noted and elasticity normal Neuro: General: oriented to time, patient oriented x3, no meningeal signs and CN's II-XI intact bilaterally Cranial nerves: Yes CN's II-XII intact bilaterally Extrem: General: Yes normal to inspection and Yes full ROM Psych: Appearance: grossly normal, well kempt and not disheveled Course Course Course Narrative: Patient will patient presently not in distress. Abdomen exam bening and negative for any tenderness. Patient will be sent for x-ray to rule out obstruction. Patient also have bladder scan to see this in retention. Reevaluation(s) Reevaluation #1: Bladder scan only shows 4 mL urine. Patient is not having any urinary tension. X-ray shows constipation. Rectal exam positive for some stool. Will perform fecal impaction. Reevaluation #2: Feels disimpaction was performed and Fleet with mineral oil enema was placed. Patient started having bowel movement and felt better. Patient given magnesium citrate in the ED also after fecal impaction. Patient to be discharged. Medical Decision Making MDM Narrative Medical decision making narrative: Constipation Discharge Plan Discharge Clinical Impression: Constipation Patient Disposition: Home, Self-Care Instructions: Constipation (ED), Fecal Impaction (ED) Additional Instructions: Return to the ED for nausea, vomiting, any abdominal pain, inability tolerate solid food/liquid, fevers, chills, abdominal swelling, dysuria, hematuria, chest pain, shortness of breath, flank pain, or any other concerning symptoms. Prescriptions: New polyethylene glycol 3350 [Miralax] 17 gram/dose powder 17 g PO DAILY 7 Days Qty: 119 RF: 0 No Action simethicone [Gas Relief (simethicone)] 125 mg tablet,chewable 125 mg PO QID PRN (Reason: abdominal distention, gas) 30 Days Qty: 120 RF: 3 sennosides [Senna Laxative] 8.6 mg tablet 8.6 - 17.2 mg PO BID PRN (Reason: constipation) 30 Days Qty: 90 RF: 0 loperamide [Anti-Diarrheal (loperamide)] 2 mg tablet 2 mg PO QID PRN (Reason: loose stool) 30 Days Qty: 120 RF: 1 atenolol 25 mg tablet 25 mg PO DAILY Qty: 30 RF: 0 tamsulosin 0.4 mg capsule 0.4 mg PO DAILY Qty: 30 RF: 0 omeprazole 20 mg capsule,delayed release(DR/EC) 20 mg PO DAILY Qty: 30 RF: 0 zolpidem 10 mg Tablet 10 mg PO BEDTIME PRN (Reason: Insomnia) Qty: 30 RF: 0 albuterol sulfate [ProAir HFA] 90 mcg/actuation HFA aerosol inhaler 1 puff inhalation QID PRN (Reason: Shortness Of Breath Or Wheezing) Qty: 1 RF: 0 clonidine HCl 0.3 mg tablet 1 tab PO BEDTIME RF: 0 mirtazapine 45 mg tablet 1 tab PO BEDTIME RF: 0 ondansetron 4 mg tablet,disintegrating 1 tab PO DAILY PRN (Reason: nausea/vomiting) RF: 0 aripiprazole 30 mg tablet 1 tab PO DAILY RF: 0 lactulose 20 gram/30 mL solution 20 g PO DAILY PRN (Reason: Constipation) RF: 0 divalproex 500 mg Tablet,Delayed Release (Dr/Ec) 500 mg PO BID RF: 0 clonazepam [Klonopin] 1 mg tablet 1 mg PO BEDTIME Qty: 1 RF: 0 clonazepam [Klonopin] 1 mg tablet 1 mg PO BEDTIME Qty: 1 RF: 0 clonazepam [Klonopin] 1 mg tablet 1 mg PO BID RF: 0 haloperidol 1 mg tablet 1 mg PO BID PRN (Reason: RESTLESSNESS) RF: 0 amitriptyline 25 mg tablet 100 mg PO BEDTIME RF: 0 Interventions: ED Discharge Assessment Last Done: 07/04/20 14:06 Discharge Date/Time: 07/04/20 14:07 Print Language: Cymraes
[2020-07-04] MEDS: Mineral OiL enema 133 ML ENEMA PR (13:36)
[2020-07-04] MEDS: Magnesium Citrate 300 ML SOLUTION PO (13:36)
== END 2020-07-04 14:07 | disposition home or self-care (01) ==
PROVIDERS: Emergency Provider Emergency Medicine; PCP Internal Medicine
DX: K59.00 Constipation, unspecified (principal); R33.9 Retention of urine, unspecified; F17.210 Nicotine dependence, cigarettes, uncomplicated
CPT/HCPCS: 51798; 74018; 99283

== ENCOUNTER → 2020-07-11 13:50 | Outpatient (BNVA) | payer MEDICAID, SELFPAY | PROVIDERS: PCP Internal Medicine; Visit Provider Internal Medicine Gastroenterology ==

== ENCOUNTER 2020-07-25 18:51 | Inpatient (IN) | payer OTHER, SELFPAY ==
[2020-07-25] VITALS (7 sets, daily range): BP systolic 135–140; BP diastolic 68–81; PULSE 70–78; RESP 14–22; TEMP 35.6–36.6; O2SAT 97–98; BMI 30.7
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
--- NOTE | ~2020-07-25 | CT_ITS ---
EXAMINATION: CT LEFT HUMERUS. CLINICAL INFORMATION: Upper arm swelling and pain. COMPARISON: None TECHNIQUE: Axial 3 mm thin and reformatted 1 mm in sagittal coronal images of left humerus were obtained following IV 70 mL Omnipaque 350. DLP 150. FINDINGS: There is a mild loss of glenohumeral joint space with inferior periarticular spurring consistent with degenerative changes. The entire left humeral cortex is intact with no visible cortical fracture or abnormality seen. There is subcutaneous haziness in the left lateral shoulder and left proximal humerus region suggestive of superficial edema. There is no gas or fluid collection seen to suspect any abscess. The mid and distal soft tissues are normal. No abnormality involving the anterior and posterior muscular compartments. CT/CT humerus LT w con IMPRESSION: Nonspecific subcutaneous soft tissue edema lateral to the left shoulder and proximal humerus. There is no abnormal fluid collection or gas visualized to suspect any drainable abscess or mass. There is no bony abnormality involving the left humerus.
--- NOTE | ~2020-07-25 | CT_ITS ---
EXAMINATION: CT ABDOMEN AND PELVIS WITHOUT CONTRAST CLINICAL INFORMATION: Bladder pain COMPARISON: 03/08/2020 TECHNIQUE: Multidetector volumetric imaging was performed from the superior aspect of the liver through the pubic symphysis. Sagittal and coronal reformatted images were obtained on the technologist's workstation. This CT examination was performed using dose optimization techniques as appropriate, variously including the following: *Automated exposure control *Adjustment of mA and/or kV according to patient size (this includes techniques or standardized protocols for targeted exams where dose is matched to indication/reason for exam; i.e. extremities or head) *Use of iterative reconstruction technique DLP: 528 mGy-cm FINDINGS: LUNG BASES: The visualized lung bases are unremarkable. LIVER, GALLBLADDER, AND BILIARY TREE: The liver is normal in size, shape, and attenuation. No focal hepatic lesion or biliary ductal dilatation is present. The gallbladder is contracted with no evidence of radiopaque gallstones, gallbladder wall thickening, or obvious pericholecystic inflammatory changes. PANCREAS: Mild atrophy with no focal abnormality. SPLEEN: Unremarkable. ADRENAL GLANDS: Unremarkable. KIDNEYS AND URETERS: The kidneys are normal in size, shape, and attenuation. No calculi. Mild fullness of both collecting systems. No significant hydroureter. No perinephric stranding. Exophytic left upper pole 3.6 cm simple cyst. No follow-up recommended. BLADDER: The bladder is distended. No bladder wall thickening. Surgical clips are seen anterior to the bladder. This is similar to prior. GASTROINTESTINAL TRACT: The stomach is unremarkable. The small bowel is normal in caliber. There is no obstruction. Normal appendix. Moderate volume of stool throughout the entirety of the colon. No colonic wall thickening or inflammatory change. No free air or free fluid. ABDOMINAL WALL: Likely prior ventral hernia repair at the pelvis. No current hernia visualized. LYMPH NODES: Normal. VASCULAR: Normal caliber aorta with mild atherosclerotic calcification. PELVIC VISCERA: The prostate and seminal vesicles are unremarkable. OSSEOUS STRUCTURES: No acute or suspicious osseous abnormality. Spinal fusion hardware at L3-L4. CT/CT abdomen pelvis wo con IMPRESSION: No acute findings of the abdomen or pelvis. There is mild fullness of both collecting systems which may be associated with the distended bladder. No bladder wall thickening. Moderate volume of stool throughout the entirety of the colon.
--- NOTE | ~2020-07-25 | XR_ITS ---
EXAMINATION: XR ABDOMEN KUB CLINICAL INDICATION: Abdominal pain COMPARISON: Previous KUB June 2020 TECHNIQUE: AP view of the abdomen. FINDINGS: There is stool throughout the colon suggestive of constipation. There are no dilated loops of bowel to suggest obstruction. No calcifications are seen. There are postsurgical changes at L3-L4. XR/XR KUB IMPRESSION: Constipation.
--- NOTE | ~2020-07-25 | XR_ITS ---
EXAMINATION: XR CHEST CLINICAL INFORMATION: Low-grade temperature. COMPARISON: None TECHNIQUE: Frontal view of the chest was obtained. FINDINGS: The lungs are well-expanded and clear of acute process. Heart size and pulmonary vascularity is normal. There is mild deformity right posterior eighth rib, otherwise unremarkable bony thorax. XR/XR chest 1V IMPRESSION: No acute cardiopulmonary process seen.
--- NOTE | 2020-07-25 08:22 | ECG_ITS ---
Test Reason : CP Blood Pressure : / mmHG Vent. Rate : 072 BPM Atrial Rate : 072 BPM P-R Int : 122 ms QRS Dur : 086 ms QT Int : 392 ms P-R-T Axes : 029 017 031 degrees QTc Int : 429 ms Normal sinus rhythm Minimal voltage criteria for LVH, may be normal variant Borderline ECG When compared with ECG of 14-JUN-2020 00:51, No significant change was found Referred By: Carlos Avalos Electronically Signed By:Scottie Figueroa
[2020-07-25] MEDS: LORazepam 2 MG/ML VIAL IM (19:55)
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
[2020-07-25] MEDS: 0.9 % Sodium Chloride 1,000 ML 999 ML IVCONT (20:30)
[2020-07-25 20:45] LABS: MANUAL DIFF FLAG NO
[2020-07-25 20:46] LABS: Basophils Percent Auto 0.3 % (0-2); Eosinophils Absolute Auto 0.1 X10*3/uL (0.0-0.4); Eosinophils Percent Auto 0.7 % (0-4); Hematocrit 40.9 % (42-52); Hemoglobin 13.7 g/dl (14.0-18.0); Imm Gran Abs Auto 0.02 X10*3/uL (0.00-0.03); Imm Gran Pct Auto 0.2 % (0.0-0.4); Lymphocytes Percent Auto 20.9 % (20-40); Mean Corpuscular HGB Conc 33.5 g/dl (31.0-36.0); Mean Corpuscular Hemoglobin 31.1 pg (27.0-33.0); Mean Platelet Volume 9.4 fL (9.4-12.4); Monocytes Absolute Auto 0.4 X10*3/uL (0.1-1.2); Monocytes Percent Auto 3.9 % (2-11); Neutrophils Absolute Auto 7.2 X10*3/uL (2.0-8.3); Platelet Count 237 X10*3/uL (160-400); Red Cell Distribution Width 14.4 % (11.0-16.0); White Blood Count 9.7 X10*3/uL (4.8-10.8)
[2020-07-25 21:12] LABS: Ethanol 169 mg/dL
[2020-07-25 21:14] LABS: Alanine Aminotransferase 13 U/L (0-40); Albumin Level 4.5 g/dL (3.5-5.0); Alkaline Phosphatase 86 U/L (39-117); Anion Gap 19 (12-20); Aspartate Amino Transferase 29 U/L (5-37); Bilirubin Total 0.7 mg/dL (0.0-1.0); Blood Urea Nitrogen 11 mg/dL (9-16); Calcium 9.4 mg/dL (8.4-10.2); Carbon Dioxide 25 mmol/L (22-29); Chloride 97 mmol/L (96-108); Estimated Glomerular Filt Rate > 60; Glucose Random 70 mg/dL (60-115); Magnesium 2.5 mg/dL (1.6-2.6); Potassium 4.3 mmol/L (3.3-5.1); Sodium 137 mmol/L (135-145); Total Protein 7.9 g/dL (6.5-8.0)
[2020-07-26] VITALS (12 sets, daily range): BP systolic 121–159; BP diastolic 60–90; PULSE 61–89; RESP 16–20; TEMP 33.9–38.1; O2SAT 98–100
--- NOTE | 2020-07-26 00:29 | PC.NURSE ---
Pt is now a and o x 4. Reports vauge SI/HI. Pt speaks burmese at this time. Per patient, now sober. i want to stay here and be admitted to the hospital. I'm going to say what ever i need to I want to kill myself, kill other people, I will do what I have to do to stay here. I WANT WATER AND SNACKS FUCK YOU . provider aware.
--- NOTE | 2020-07-26 01:06 | PC.NURSE ---
Pt is medically cleared at this time
--- NOTE | 2020-07-26 02:00 | PC.NURSE ---
Patient just got transferred from main ED, gait intact, mood irritable, demanding medication, compliant with COVID swab/pending result, patient awaiting BHN, denied distress, will continue to monitor.
[2020-07-26 02:04] LABS: COVID-19 Test Negative (Negative)
--- NOTE | 2020-07-26 02:06 | ED_ITS ---
HPI - Psych General Chief Complaint: ETOH/Substance Use Stated Complaint: ETOH,CP,VOMITING Time Seen by Provider: 07/25/20 19:25 Source: patient and EMS Mode of arrival: EMS Limitations: no limitations History of Present Illness HPI Narrative: Patient history of alcohol abuse depression been drinking heavily lately complaining of losing weight depressed asking for help wants to talk to therapist very upset when he arrived MD complaint: suicidal ideation and feels depressed Onset (ago): year(s) Duration: constant History of same: Yes Relieving factors: none Exacerbating factors: none Context: recent alcohol abuse Associated psychiatric symptoms: depression and suicidal ideation Treatments prior to arrival: none If self harm: admits thoughts of self harm Related Data Home Medications Medication Instructions Recorded Confirmed amitriptyline 1 tab PO BEDTIME 07/26/20 07/26/20 atenolol 1 tab PO DAILY 07/26/20 07/26/20 clonazepam 1 tab PO BID 07/26/20 07/26/20 clonidine HCl 1 tab PO BEDTIME 07/26/20 07/26/20 divalproex 1 tab PO BID 07/26/20 07/26/20 fluticasone propionate 2 spray INTRANASAL DAILY 07/26/20 07/26/20 mirtazapine 1 tab PO BEDTIME 07/26/20 07/26/20 risperidone 1 tab PO BID 07/26/20 07/26/20 sucralfate 1 tab PO QID 07/26/20 07/26/20 tamsulosin 1 cap PO DAILY 07/26/20 07/26/20 valproic acid (as sodium salt) 10 ml PO BID 07/26/20 07/26/20 verapamil 1 tab PO TID 07/26/20 07/26/20 Allergies Allergy/AdvReac Type Severity Reaction Status Date / Time trazodone [TRAZODONE] Allergy Severe FACIAL Verified 04/07/20 09:20 SWELLING, swelling cat dander [CATS] Allergy Intermediate FACIAL Verified 04/07/20 09:20 ITCHING doxepin [DOXEPIN] Allergy Intermediate WEIGHT Verified 04/07/20 09:20 GAIN/LEG SWELLING Iodinated Contrast Media Allergy Intermediate ITCHING Verified 04/07/20 09:20 [IV DYE, IODINE CONTAINING CONTRAST ] nitroglycerin [NITROGLYCERIN] Allergy Unknown UNKNOWN Verified 04/07/20 09:20 tramadol [TRAMADOL] Allergy Unknown UNKNOWN, Verified 04/07/20 09:20 dry mouth ibuprofen [From MOTRIN] AdvReac Intermediate GI UPSET Verified 04/07/20 09:20 quetiapine [From SEROQUEL] AdvReac Intermediate FACIAL Verified 04/07/20 09:20 SWELLING aspirin [ASPIRIN] AdvReac Mild Stomach Verified 04/07/20 09:20 Upset Ibuprofen Allergy Unknown stomach Uncoded 04/07/20 09:20 ache IV contrast Allergy Unknown Unknown Uncoded 04/07/20 09:20 Motrin Allergy Unknown stomach Uncoded 04/07/20 09:20 pain Review of Systems Review of Systems: Constitutional : No Weight loss, No Fever, No Chills ENT/Mouth : No sore throat, No Rhinorrhea Eyes: No Eye Pain, No Swelling Cardiovascular : No Chest Pain, no palpitations Respiratory : No Cough, No Sputum, no shortness of breath Gastrointestinal : + Nausea, + Vomiting, No Diarrhea, chronic abdominal Pain, no black stools Genitourinary : No Dysuria, No Urinary Frequency Musculoskeletal : No joint pain, No Myalgias, No Joint Swelling Skin : No Skin Lesions, No rash Neuro : No Weakness, No Numbness, No Dizziness, No Headache Psych : No Anxiety/Panic, No Depression Heme/Lymph: No Bruising, No Lymphadenopathy Endocrine : No Polyuria, No Polydipsia All other systems reviewed and are negative [facility], [facility] Past Medical History Medical History Anxiety Chest pain Dysphagia GERD (gastroesophageal reflux disease) Weight loss Surgical History H/O umbilical hernia repair History of colonoscopy History of cystoscopy Family History Family History Father HTN (hypertension) Diabetes Mother HTN (hypertension) Stroke Alzheimer disease Heart disease Social History Social History Household Members: Friend(s) Housing: House Alcohol intake: current Alcohol intake frequency: 3 or more drinks per day Smoking Status: Current every day smoker Tobacco Type: Cigarette Packs Per Day: 1 Cigarettes Per Day: 8 Years Smoked: 9 Smoked in Last 30 Days: Yes Second Hand Smoke Exposure: Yes Use of substances other than those prescribed or required for medical reasons: Refusing to respond Any prior treatment program specific to substance use: No Advance Directives: Yes Advance Directives on File: Yes Advance Directives Date on File: 02/24/20 service: No Current occupational status: disabled Sexual orientation: Straight/Heterosexual Physical Exam Vital Signs: Vital Signs: Last Vital Signs Temp 97.7 F 07/26/20 01:39 Pulse 83 07/26/20 01:39 Resp 18 07/26/20 01:39 BP 150/90 H 07/26/20 01:39 Pulse Ox 100 07/26/20 01:39 Body Mass Index 30.7 Const: General: comfortable, no acute distress and intoxicated appearing Orientation/consciousness: patient oriented x3 HENMT: Head: Yes normocephalic and Yes atraumatic Ears: hearing grossly normal bilaterally General nose exam: Normal external nose present Face and sinus: Yes normal facial exam Mouth: Normal oral and palatal mucosa present Eyes: General: appearance normal, both eyes and all related structures Neck: Neck: Yes normal visual inspection, Yes full ROM and Yes no lymphadenopathy Chest: Chest palpation & inspection: normal inspection of the chest and normal palpation of entire chest wall Resp: Effort & Inspection: normal respiratory effort Auscultation: clear to auscultation bilaterally, no crackles and no rales Cardio: Jugular venous distension: no JVD Palpation: normal PMI Rate: regular rate Rhythm: regular rhythm Heart sounds: S1 normal heart sound present and S2 normal heart sound present Peripheral pulses: Peripheral pulses 2+ throughout GI: Inspection: Yes normal to inspection Palpation (GI): Soft to palpation and nontender Auscultation: normal bowel sounds : General: Yes no CVA tenderness Back/Spine/Pelvis: Back: no CVA tenderness Thoracic/Lumbar Spine: No thoracic spinal tenderness and No lumbar spinal tenderness Skin: General skin exam: no rashes or lesions noted Neuro: General: patient oriented x3 and no focal motor deficits Extrem: General: Yes normal to inspection, Yes full ROM, Yes no calf tenderness and Yes normal gait Psych: Appearance: grossly normal Speech and movement: Normal speech and movement present Affect: Sad affect present Attitude: cooperative Thought content: Suicidality present Insight: Limited insight present (Psych) Judgement: Limited judgement present (Psych) MDM - Psych MDM Narrative Medical decision making narrative: History of depression alcohol use been depressed lately will get care team to see him patient intoxicated on arrival but sober now Lab Data Attestation: I reviewed the patient's lab results. Result diagrams: 07/25/20 20:35 07/25/20 20:35 Labs: Lab Results 07/25/20 07/25/20 07/25/20 Range/Units 20:35 20:35 20:35 WBC 9.7 (4.8-10.8) X10*3/uL RBC 4.40 L D (4.60-5.80) X10*6/uL Hgb 13.7 L D (14.0-18.0) g/dl Hct 40.9 L D (42-52) % MCV 93.0 (80-98) fL MCH 31.1 (27.0-33.0) pg MCHC 33.5 (31.0-36.0) g/dl RDW 14.4 (11.0-16.0) % Plt Count 237 D (160-400) X10*3/uL MPV 9.4 (9.4-12.4) fL Immature Gran % (Auto) 0.2 (0.0-0.4) % Neut % (Auto) 74.0 H (45-73) % Lymph % (Auto) 20.9 (20-40) % Whiteside % (Auto) 3.9 (2-11) % Eos % (Auto) 0.7 (0-4) % Baso % (Auto) 0.3 (0-2) % Lymph # (Auto) 2.0 (1.2-4.9) X10*3/uL Whiteside # (Auto) 0.4 (0.1-1.2) X10*3/uL Eos # (Auto) 0.1 (0.0-0.4) X10*3/uL Baso # (Auto) 0.0 (0.0-0.2) X10*3/uL Abs Immat Gran (auto) 0.02 (0.00-0.03) X10*3/uL Absolute Neuts (auto) 7.2 (2.0-8.3) X10*3/uL Absolute Nucleated RBC 0.000 (0.0-0.012) X10*3/uL Nucleated RBC % (auto) 0.0 (0.0-0.2) /100WBC Sodium 137 (135-145) mmol/L Potassium 4.3 D (3.3-5.1) mmol/L Chloride 97 (96-108) mmol/L Carbon Dioxide 25 (22-29) mmol/L Anion Gap 19 (12-20) BUN 11 (9-16) mg/dL Creatinine 0.76 (0.5-1.4) mg/dL Estim Creat Clear Calc 117.0 Estimated GFR > 60 Random Glucose 70 (60-115) mg/dL Calcium 9.4 D (8.4-10.2) mg/dL Magnesium 2.5 (1.6-2.6) mg/dL Total Bilirubin 0.7 (0.0-1.0) mg/dL AST 29 D (5-37) U/L ALT 13 (0-40) U/L Alkaline Phosphatase 86 (39-117) U/L Total Protein 7.9 (6.5-8.0) g/dL Albumin 4.5 (3.5-5.0) g/dL Ethyl Alcohol 169 mg/dL COVID-19 (ERIN) (Negative) COVID-19 Clin Com 07/26/20 Range/Units 01:40 WBC (4.8-10.8) X10*3/uL RBC (4.60-5.80) X10*6/uL Hgb (14.0-18.0) g/dl Hct (42-52) % MCV (80-98) fL MCH (27.0-33.0) pg MCHC (31.0-36.0) g/dl RDW (11.0-16.0) % Plt Count (160-400) X10*3/uL MPV (9.4-12.4) fL Immature Gran % (Auto) (0.0-0.4) % Neut % (Auto) (45-73) % Lymph % (Auto) (20-40) % Whiteside % (Auto) (2-11) % Eos % (Auto) (0-4) % Baso % (Auto) (0-2) % Lymph # (Auto) (1.2-4.9) X10*3/uL Whiteside # (Auto) (0.1-1.2) X10*3/uL Eos # (Auto) (0.0-0.4) X10*3/uL Baso # (Auto) (0.0-0.2) X10*3/uL Abs Immat Gran (auto) (0.00-0.03) X10*3/uL Absolute Neuts (auto) (2.0-8.3) X10*3/uL Absolute Nucleated RBC (0.0-0.012) X10*3/uL Nucleated RBC % (auto) (0.0-0.2) /100WBC Sodium (135-145) mmol/L Potassium (3.3-5.1) mmol/L Chloride (96-108) mmol/L Carbon Dioxide (22-29) mmol/L Anion Gap (12-20) BUN (9-16) mg/dL Creatinine (0.5-1.4) mg/dL Estim Creat Clear Calc Estimated GFR Random Glucose (60-115) mg/dL Calcium (8.4-10.2) mg/dL Magnesium (1.6-2.6) mg/dL Total Bilirubin (0.0-1.0) mg/dL AST (5-37) U/L ALT (0-40) U/L Alkaline Phosphatase (39-117) U/L Total Protein (6.5-8.0) g/dL Albumin (3.5-5.0) g/dL Ethyl Alcohol mg/dL COVID-19 (ERIN) Negative (Negative) COVID-19 Clin Com See Note Discharge Plan Discharge Prescriptions: No Action clonidine HCl 0.1 mg tablet 1 tab PO BEDTIME RF: 0 verapamil 40 mg tablet 1 tab PO TID RF: 0 sucralfate 1 gram tablet 1 tab PO QID RF: 0 clonazepam 1 mg tablet 1 tab PO BID RF: 0 atenolol 25 mg tablet 1 tab PO DAILY RF: 0 divalproex 500 mg tablet,delayed release (DR/EC) 1 tab PO BID RF: 0 amitriptyline 25 mg tablet 1 tab PO BEDTIME RF: 0 tamsulosin 0.4 mg capsule 1 cap PO DAILY RF: 0 valproic acid (as sodium salt) 250 mg/5 mL solution 10 ml PO BID RF: 0 mirtazapine 15 mg tablet 1 tab PO BEDTIME RF: 0 fluticasone propionate 50 mcg/actuation spray,suspension 2 spray intranasal DAILY RF: 0 risperidone 0.5 mg tablet,disintegrating 1 tab PO BID RF: 0
--- NOTE | 2020-07-26 02:22 | MHC.CARE ---
CARE Team receives a consult siting SI. CARE Team communicates to RN that provider may either refer to [facility] (as pt has [facility]) and if [facility] is not able to see pt on the overnight or in the morning, then CARE Team may be able to assist.
[2020-07-26] MEDS: ondansetron HCL 4 MG/2 ML VIAL IV (03:31)
[2020-07-26] MEDS: LORazepam 2 MG/ML VIAL IM (03:31)
--- NOTE | 2020-07-26 03:33 | PC.NURSE ---
Patient had been intermittently vomiting, reporting headache 01/13, CIWA assessed scored 12, patient in distress, provider notified/ordered Zofran 4 mg IM and Ativan 2 mg IM, patient is unable to tolerate PO or sublingual meds at this time, Medication administered as ordered/patient compliant, KHANGN completed the assessment, disposition is section 12 inpatient bed search, will continue to monitor.
--- NOTE | 2020-07-26 07:31 | ECG_ITS ---
Test Reason : GENERAL MEDICAL Blood Pressure : / mmHG Vent. Rate : 082 BPM Atrial Rate : 082 BPM P-R Int : 108 ms QRS Dur : 084 ms QT Int : 392 ms P-R-T Axes : 028 021 046 degrees QTc Int : 457 ms Sinus rhythm with short NJ Minimal voltage criteria for LVH, may be normal variant Borderline ECG When compared with ECG of 25-JUL-2020 19:09, No significant change was found Referred By: Carlos Avalos Electronically Signed By:MARIE LOCKWOOD MD
[2020-07-26] MEDS: atenoloL 25 MG TABLET PO (10:11)
[2020-07-26] MEDS: clonazePAM 1 MG TABLET PO ×2 (10:11→21:46)
[2020-07-26] MEDS: Sucralfate 1 GM TABLET PO ×3 (10:11→21:46)
[2020-07-26] MEDS: risperiDONE 0.5 MG TABLET PO ×2 (10:11→21:46)
[2020-07-26] MEDS: Tamsulosin HCL 0.4 MG CAPSULE PO (10:12)
[2020-07-26] MEDS: Divalproex Sodium 500 MG TABLET.DR PO ×2 (10:12→21:46)
[2020-07-26] MEDS: VerapamiL HCL 40 MG TABLET PO ×3 (11:14→21:46)
--- NOTE | 2020-07-26 11:48 | PC.NURSE ---
Report received. Pt resting in bed at current. Irritable, continues to ask to leave. Unable to provide enough urine for UA, encouraged to drink more fluids. Continues to be a section 12 bed search.
[2020-07-26] MEDS: Acetaminophen 325 MG TABLET 650 MG PO ×2 (11:53→21:45)
[2020-07-26] MEDS: Metoclopramide HCl 10 MG TABLET PO (16:24)
[2020-07-26 17:19] LABS: Glucose Urine UA NEG (NEG); Leukocyte Esterase Urine NEG (NEG); Nitrite Urine NEG (NEG); Specific Gravity - Urine >= 1.030 (1.005-1.025); Urine Blood 2+ (NEG); Urine Ketones >=80 MG/DL (NEG); Urine Protein NEG (NEG-TRACE)
[2020-07-26 17:23] LABS: Amphetamine Screen Urine Not Detected (Not Detect); Barbiturates, Urine Not Detected (Not Detect); Benzodiazepines Screen Urine Not Detected (Not Detect); Cannabinoid Screen Urine Not Detected (Not Detect); Cocaine Screen Urine Not Detected (Not Detect); Opiate Screen Urine POSITIVE (Not Detect); Phencyclidine Screen Urine Not Detected (Not Detect)
[2020-07-26 17:25] LABS: Appearance Urine CLEAR; Color Urine YELLOW
[2020-07-26 17:35] LABS: Squamous Epithelial Cell Urine 1+ /LPF; WBC Urine 0 /HPF (0-4)
--- NOTE | 2020-07-26 18:04 | PC.NURSE ---
Pt resting comfortably, no signs of distress, calm, cooperative.
--- NOTE | 2020-07-26 19:17 | PC.NURSE ---
Report received. PT is laying in bed. Calm and cooperative. Waiting to be transferred to .
--- NOTE | 2020-07-26 19:18 | PC.NURSE ---
Nurse to nurse completed with Jermain WAGNER on M5.
[2020-07-26] MEDS: Mirtazapine 15 MG TABLET PO (21:47)
[2020-07-26] MEDS: cloNIDine HCL 0.1 MG TABLET PO (21:47)
[2020-07-26] MEDS: Amitriptyline HCl 25 MG TABLET PO (21:47)
--- NOTE | 2020-07-26 22:16 | PC.NURSE ---
At 2200 CIWA score was a 10, patient was medicated at 2150 with Klonopin and clonidine. Patient given Tylenol for back pain and mild headache.
--- NOTE | 2020-07-26 22:17 | PC.ADMIT ---
Addendum entered by Gordo Resendiz RN 07/26/20 22:35: Utox was positive for opiates not cocaine, patient reported daily use of cocaine. Original Note: Patient is a 50 year old Japanese/Marshallese speaking male who presents to from [facility] ED at 2004 on a CV status. Patient is covid negative. Utox was positive for cocaine. Patient is known to with numerous past admissions. Patient came into the ED intoxicated reporting suicidal and homicidal thoughts at the time. Patient reported auditory and visual hallucinations. Patient has been to the ED four times in the past four months with the same presentations. Patient reported anxiety and depression, has been homeless, not eating well and loosing weight, and drinking ETOH more. Patient was cooperative with the admission process. Patient reports elevated anxiety and depression. Patient reporting command AH that tell him he should kill himself - patient stated he felt he was able to contract for safety at this time and said he would come to staff if he developed a plan to hurt himself. Patient did report some visual hallucinations but did not elaborate on content. Patient reported intermittent suicidal thoughts but was able to contract for safety with nurse. Patient denies any HI at this time. patient reports he feels hopeless and helpless due to homelessness. patient reports he has been jumping between different friends houses. Patient placed on 5 minute checks with unb. Patient appears to be withdrawing from cocaine/ETOH at this time and is currently on a CIWA protocol. Patient scored a 10 at 2200.
[2020-07-27] VITALS (10 sets, daily range): BP systolic 95–124; BP diastolic 54–77; PULSE 55–107; RESP 16–18; TEMP 36.8–37.2; O2SAT 97–99
[2020-07-27] MEDS: LORazepam 1 MG TABLET PO ×2 (01:14→16:20)
[2020-07-27] MEDS: hydrOXYzine HCL 25 MG TABLET PO (01:14)
[2020-07-27] MEDS: cloNIDine HCL 0.1 MG TABLET PO ×2 (01:14→20:28)
--- NOTE | 2020-07-27 03:42 | PC.NURSE ---
at 0114, Patient reported to nurse that he uses Heroin on a daily basis and not cocaine. patient stated he was tired at the time during assessment.
--- NOTE | 2020-07-27 05:17 | PC.NURSE ---
Patient was asleep at 0500 for CIWA assessment. No signs of sweating, patient in bed sleeping. No signs of distress noted.
[2020-07-27] MEDS: Tamsulosin HCL 0.4 MG CAPSULE PO (08:42)
[2020-07-27] MEDS: clonazePAM 1 MG TABLET PO ×2 (08:42→20:22)
[2020-07-27] MEDS: Divalproex Sodium 500 MG TABLET.DR PO (08:42)
[2020-07-27] MEDS: risperiDONE 0.5 MG TABLET PO (08:42)
[2020-07-27] MEDS: atenoloL 25 MG TABLET PO (08:43)
[2020-07-27] MEDS: Sucralfate 1 GM TABLET PO ×4 (08:43→20:22)
[2020-07-27] MEDS: VerapamiL HCL 40 MG TABLET PO ×2 (08:44→20:29)
--- NOTE | 2020-07-27 10:32 | HO.PSYADMNOT ---
HPI Chief Complaint: SI Sources of Information: patient interviewed, chart reviewed and crisis/core team assessment reviewed HPI Subjective Notes: Conditional Voluntary Narrative: The patient is a 50 year old male, single, father of an adult daughter, unemployed on disability, chronically homeless with a previous history of alcohol use disorder, MDD, recent opioid use disorder as per his report and psychosis. He had several admissions into the hospital, his last admission a few months ago here. He reported that he has been abusing alcohol and heroin in a daily basis. He admitted exacerbation of his depressive symptoms elicited by depressed mood, anhedonia, lack of energy and suicidal thoughts. He also complained of auditory hallucinations commanding to kill himself. During the intake interview in Malay, the patient remembered me, I used to be his prescriber more than 1o years ago in a local clinic. He complained of opioid withdrawal symptoms and he requested agonist therapy. Apparently, he was discharged of a Methadone Clinic recently. We discussed his diagnosis, prognosis and treatment options and he agreed to use long acting injectables as a mood stabilizer/antipsychotic treatment but first we will try PO Risperdal. Past Psychiatric History: Multiple hospital stays. He has providers at [facility] Medical Evaluation Reviewed: Yes [facility] Medical History Anxiety Chest pain Dysphagia GERD (gastroesophageal reflux disease) Weight loss Surgical History H/O umbilical hernia repair History of colonoscopy History of cystoscopy Family History: Unknown Social History: Chronically homeless, with poor social support. Unemployed on SSI Substance History: As described on HPI, alcohol use disorder since early adulthood, opioid use disorder Trauma History: Recent loss of his nephew Diagnostics Vital Signs (24Hr): Vital Signs - 24 hr 07/26/20 11:14 07/26/20 13:06 07/26/20 15:07 Temperature 100.6 F H 99.7 F 99.5 F Pulse Rate 69 75 61 Respiratory Rate 17 16 17 Blood Pressure 145/60 H 121/69 135/62 Pulse Oximetry 99 99 99 07/26/20 15:46 07/26/20 15:47 07/26/20 15:51 Temperature 99.9 F 99.0 F Pulse Rate 65 65 Respiratory Rate 20 Blood Pressure 155/76 H 155/76 H Pulse Oximetry 98 07/26/20 20:00 07/26/20 21:16 07/27/20 01:14 Temperature 99.2 F 99.1 F 99.0 F Pulse Rate 89 61 107 H Respiratory Rate 18 18 Blood Pressure 159/84 H 131/61 119/77 Pulse Oximetry 98 97 07/27/20 08:43 07/27/20 08:44 Temperature Pulse Rate 68 68 Respiratory Rate Blood Pressure 118/66 118/66 Pulse Oximetry Body Mass Index 30.7 Labs Results: 07/25/20 20:35 07/25/20 20:35 Labs: Laboratory Results - last 48 hr 07/25/20 07/25/20 07/25/20 20:35 20:35 20:35 WBC 9.7 RBC 4.40 L D Hgb 13.7 L D Hct 40.9 L D MCV 93.0 MCH 31.1 MCHC 33.5 RDW 14.4 Plt Count 237 D MPV 9.4 Immature Gran % (Auto) 0.2 Neut % (Auto) 74.0 H Lymph % (Auto) 20.9 Ashley % (Auto) 3.9 Eos % (Auto) 0.7 Baso % (Auto) 0.3 Lymph # (Auto) 2.0 Ashley # (Auto) 0.4 Eos # (Auto) 0.1 Baso # (Auto) 0.0 Abs Immat Gran (auto) 0.02 Absolute Neuts (auto) 7.2 Absolute Nucleated RBC 0.000 Nucleated RBC % (auto) 0.0 Sodium 137 Potassium 4.3 D Chloride 97 Carbon Dioxide 25 Anion Gap 19 BUN 11 Creatinine 0.76 Estim Creat Clear Calc 117.0 Estimated GFR > 60 Random Glucose 70 Calcium 9.4 D Magnesium 2.5 Total Bilirubin 0.7 AST 29 D ALT 13 Alkaline Phosphatase 86 Total Protein 7.9 Albumin 4.5 Urine Color Urine Appearance Urine pH Ur Specific [place] Urine Protein Urine Glucose (UA) Urine Ketones Urine Blood Urine Nitrite Ur Leukocyte Esterase Urine RBC Urine WBC Ur Squamous Epith Cells Urine Bacteria Urine Opiates Screen Ur Barbiturates Screen Ur Phencyclidine Scrn Ur Amphetamines Screen U Benzodiazepines Scrn Urine Cocaine Screen U Marijuana (THC) Screen Ethyl Alcohol 169 COVID-19 (ERIN) COVID-19 Clin Com 07/26/20 07/26/20 07/26/20 01:40 16:38 Unknown WBC RBC Hgb Hct MCV MCH MCHC RDW Plt Count MPV Immature Gran % (Auto) Neut % (Auto) Lymph % (Auto) Ashley % (Auto) Eos % (Auto) Baso % (Auto) Lymph # (Auto) Ashley # (Auto) Eos # (Auto) Baso # (Auto) Abs Immat Gran (auto) Absolute Neuts (auto) Absolute Nucleated RBC Nucleated RBC % (auto) Sodium Potassium Chloride Carbon Dioxide Anion Gap BUN Creatinine Estim Creat Clear Calc Estimated GFR Random Glucose Calcium Magnesium Total Bilirubin AST ALT Alkaline Phosphatase Total Protein Albumin Urine Color YELLOW Urine Appearance CLEAR Urine pH 6.0 Ur Specific [place] >= 1.030 H Urine Protein NEG Urine Glucose (UA) NEG Urine Ketones >=80 Urine Blood 2+ H Urine Nitrite NEG Ur Leukocyte Esterase NEG Urine RBC 5-9 H Urine WBC 0 Ur Squamous Epith Cells 1+ Urine Bacteria NONE Urine Opiates Screen POSITIVE H Ur Barbiturates Screen Not Detected Ur Phencyclidine Scrn Not Detected Ur Amphetamines Screen Not Detected U Benzodiazepines Scrn Not Detected Urine Cocaine Screen Not Detected U Marijuana (THC) Screen Not Detected Ethyl Alcohol COVID-19 (ERIN) Negative COVID-19 Clin Com See Note Imaging Radiology Impressions: ITS Impressions Chest X-Ray 07/26/20 11:31 IMPRESSION: No acute cardiopulmonary process seen. Meds/Allergies Meds Home Medications Acetaminophen (Acetaminophen 325 Mg Tablet) 650 mg PO Q6H PRN PRN Reason: Headache/Pain Mild Scale (1-3) Last Admin: 07/26/20 21:45 Dose: 650 mg Documented by: Al Hydroxide/Mg Hydroxide (Magnesium Hydrox/Alum Hydrox 30 Ml Oral.Susp) 30 ml PO Q6H PRN PRN Reason: Heartburn/Nausea Amitriptyline HCl (Amitriptyline Hcl 25 Mg Tablet) 25 mg PO BEDTIME JAMES Last Admin: 07/26/20 21:47 Dose: 25 mg Documented by: Atenolol (Atenolol 25 Mg Tablet) 25 mg PO DAILY JAMES; Protocol Last Admin: 07/27/20 08:43 Dose: 25 mg Documented by: Clonazepam (Clonazepam 1 Mg Tablet) 1 mg PO BID JAMES Last Admin: 07/27/20 08:42 Dose: 1 mg Documented by: Clonidine HCl (Clonidine Hcl 0.1 Mg Tablet) 0.1 mg PO BEDTIME JAMES; Protocol Last Admin: 07/26/20 21:47 Dose: 0.1 mg Documented by: Clonidine HCl (Clonidine Hcl 0.1 Mg Tablet) 0.1 mg PO Q4H PRN; Protocol PRN Reason: Opiate Withdrawal Last Admin: 07/27/20 01:14 Dose: 0.1 mg Documented by: Divalproex Sodium (Divalproex Sodium 500 Mg Tablet.Dr) 500 mg PO BID [facility] Last Admin: 07/27/20 08:42 Dose: 500 mg Documented by: Fluticasone Propionate (Fluticasone Propionate Nasal 16 Gm [place]) 2 spray NOSTRIL-B DAILY [facility] Last Admin: 07/26/20 11:17 Dose: Not Given Documented by: Hydroxyzine HCl (Hydroxyzine Hcl 25 Mg Tablet) 25 mg PO BEDTIME PRN PRN Reason: Anxiety Last Admin: 07/27/20 01:14 Dose: 25 mg Documented by: Lorazepam (Lorazepam 1 Mg Tablet) 1 mg PO Q4H PRN PRN Reason: Breakthrough alcohol withdrawa Stop: 07/30/20 19:15 Last Admin: 07/27/20 01:14 Dose: 1 mg Documented by: Magnesium Hydroxide (Milk Of Magnesia 30 Ml Oral.Susp) 30 ml PO DAILY PRN PRN Reason: Constipation Mirtazapine (Mirtazapine 15 Mg Tablet) 15 mg PO BEDTIME [facility] Last Admin: 07/26/20 21:47 Dose: 15 mg Documented by: Risperidone (Risperidone 1 Mg Tablet) 1 mg PO BID [facility] Sucralfate (Sucralfate 1 Gm Tablet) 1 gm PO QID [facility] Last Admin: 07/27/20 08:43 Dose: 1 gm Documented by: Tamsulosin HCl (Tamsulosin Hcl 0.4 Mg Capsule) 0.4 mg PO DAILY [facility] Last Admin: 07/27/20 08:42 Dose: 0.4 mg Documented by: Valproic Acid (Valproic Acid (As Sodium Salt) 250 Mg/5 Ml Solution) 10 mg PO BID [facility] Last Admin: 07/26/20 21:47 Dose: 10 mg Documented by: Verapamil HCl (Verapamil Hcl 40 Mg Tablet) 40 mg PO TID [facility]; Protocol Last Admin: 07/27/20 08:44 Dose: 40 mg Documented by: Allergies Allergies Allergy/AdvReac Type Severity Reaction Status Date / Time trazodone [TRAZODONE] Allergy Severe FACIAL Verified 04/07/20 09:20 SWELLING, swelling cat dander [CATS] Allergy Intermediate FACIAL Verified 04/07/20 09:20 ITCHING doxepin [DOXEPIN] Allergy Intermediate WEIGHT Verified 04/07/20 09:20 GAIN/LEG SWELLING Iodinated Contrast Media Allergy Intermediate ITCHING Verified 04/07/20 09:20 [IV DYE, IODINE CONTAINING CONTRAST ] nitroglycerin [NITROGLYCERIN] Allergy Unknown UNKNOWN Verified 04/07/20 09:20 tramadol [TRAMADOL] Allergy Unknown UNKNOWN, Verified 04/07/20 09:20 dry mouth ibuprofen [From MOTRIN] AdvReac Intermediate GI UPSET Verified 04/07/20 09:20 quetiapine [From SEROQUEL] AdvReac Intermediate FACIAL Verified 04/07/20 09:20 SWELLING aspirin [ASPIRIN] AdvReac Mild Stomach Verified 04/07/20 09:20 Upset Ibuprofen Allergy Unknown stomach Uncoded 04/07/20 09:20 ache IV contrast Allergy Unknown Unknown Uncoded 04/07/20 09:20 Motrin Allergy Unknown stomach Uncoded 04/07/20 09:20 pain Mental Status Exam Mental Status Exam Patient Appearance: Disheveled (on hospital gowns) and Unkempt Patient Orientation: Person, Place, Time and Situation Level of Consciousness: Awake and Appropriate Patient Behavior: Appropriate and Guarded Mood Description: Depressed Affect Description: Constricted Patient Cognition Impaired: No Ability to Follow Directions: Good Speech Pattern: Clear Hallucinations: Auditory Delusions: Paranoid Ideation Perceptual Disturbances: Hallucinations Thought Process: Slowed Thinking Thought Content: positive for Circumstantial Depressive Symptoms: Increased Anxiety, Insomnia, Difficulty Sleeping, Changes in Appetite and Significant Weight Gain Abnormal Motor Activity Signs and Symptoms: Psychomotor Retardation Judgement: Poor Assessment & Plan Assessment & Plan (1) Psychosis: Status: Acute Qualifiers: Psychosis type: unspecified psychosis type Qualified Code(s): F29 - Unspecified psychosis not due to a substance or known physiological condition Code(s): F29 - Unspecified psychosis not due to a substance or known physiological condition Assessment and Plan: The patient is a middle age male with a long history of depression, psychosis, mood lability and polysubstance dependence, with poor social support, admitted for a recent relapse on heroin, alcohol and psychosis, unable to take care himself in the community. Plan: Increase Risperdal 1 mg po bid. If he tolerates well, we will consider Invega Sustenna (2) Opioid abuse: Status: Acute Code(s): F11.10 - Opioid abuse, uncomplicated Assessment and Plan: Plan: refer to substance abuse clinic (3) Alcohol dependence: Status: Acute Code(s): F10.20 - Alcohol dependence, uncomplicated Patient educated on: diagnosis, medication risk/benefits, substance abuse, therapeutic strategies and medical condition Informed Consent: understands Reason for continued inpatient stay Substantial Risk for: harm to self, inability to function, rapid decompensation and med/psych decompensation
--- NOTE | 2020-07-27 12:30 | MHC.RECOVRN ---
T/w met with pt after pt requested methadone for opiate withdrawal. Pt reports 2 bundles heroin daily, [place], x 5 months. Last use 3 days ago. Pt reports using methadone in the past at [facility] and worked well at the time. T/w educated pt regarding other MOUD, ex Suboxone, and after discussion pt would like to have withdrawals treated with methadone. Pt is not looking to be on methadone maintenance. COWS score 13. Case discussed with Meghan Stewart APRN, who will make recommendations accordingly. T/w and recovery support team available as needed.
--- NOTE | 2020-07-27 14:11 | MHC.SL.SWA ---
Speech Pathologist Impression: Risk of Aspiration Liquid Consistency and Strategies for Safe Swallow: Liquid Intake Recommendation: Thin Liquid Intake Strategies: Small Sips Solid Food Consistency: Dietary Recommendations: TBD MAIL TELLER explained rationale of this evaluation. Patient had tray at bedside with chips and sandwich. Patient was also offered crackers, but refused all harder solids. MAIL TELLER is unable to provide recommendation for safest and least restrictive solid due to patient's refusal to eat solid food during our evaluation. Patient tolerated thin liquids and pureed solids with no overt s/s of aspiration. When asked to locate pain, patient pointed to general location of thyroid cartilage. He reports pain when swallowing any solid and reports that nothing helps. Recommendation for solid pending re-evaluation when patient is willing to participate. Patient may benefit from consult with ENT and/or GI due to history of GERD and report of odynophagia. Oral Medication Intake: Whole with Liquid Compensatory Strategies and Precautions to be Taken for Safe Swallow: Sitting Upright (90 deg) Small Bites and Sips Supervision While Eating and Drinking for Safe Swallow: Intermittent Supervision Swallowing Recommended Treatments: Compens. Strategy Educat. Recommendation for Speech: Inpatient Speech Therapy Comment: MAIL TELLER to continue to follow. Manager Registration Clinican/Clinical Fellow: No Supervisory Statement: I have reviewed and agree with the student/clinical fellow's documentation: N/A Speech Language Pathologist: Flora Yung M.A., [facility]-MAIL TELLER
--- NOTE | 2020-07-27 15:07 | MHC.CLN ---
RE: CONSULT HT 66 , WT 190# IBW 142#+/-10% PT IS 134% IBW INDICATES OBESE FOR HT PREVIOUS WT HX REVEALS 143# (02/18/20), 148# (12/31/19) 33% SIGNIFICANT WT GAIN X 6MONTHS MEDS: REMERON, METHADONE, RISPERDAL LABS: 07/25/20 CMP-WNL ALBUMIN 4.5 DIET RX: REGULAR-APPROPRIATE CHILDCARE ATTENDANT FOLLOWING FOR APPROPRIATE DIET CONSISTENCY RD CONSULT STATED DIFFICULTY SWALLOWING SOMETIMES DEFERRED TO CHILDCARE ATTENDANT CONTINUE CURRENT CARE PLAN
[2020-07-27] MEDS: risperiDONE 1 MG TABLET PO (20:22)
[2020-07-27] MEDS: Amitriptyline HCl 25 MG TABLET PO (20:22)
[2020-07-27] MEDS: Mirtazapine 15 MG TABLET PO (20:22)
[2020-07-28] VITALS (8 sets, daily range): BP systolic 91–106; BP diastolic 52–64; PULSE 65–114; RESP 16–18; TEMP 36.4–37; O2SAT 97
[2020-07-28] MEDS: LORazepam 1 MG TABLET PO ×3 (02:40→23:50)
[2020-07-28] MEDS: risperiDONE 1 MG TABLET PO ×2 (09:10→20:25)
[2020-07-28] MEDS: Tamsulosin HCL 0.4 MG CAPSULE PO (09:10)
[2020-07-28] MEDS: Fluticasone Propionate Nasal 16 GM SPRAY 2 SPRAY NOSTRIL-B (09:10)
[2020-07-28] MEDS: Sucralfate 1 GM TABLET PO ×4 (09:11→20:25)
[2020-07-28] MEDS: clonazePAM 1 MG TABLET PO ×2 (09:11→20:25)
--- NOTE | 2020-07-28 16:19 | P.PNPSI_ITS ---
Subjective Subjective Date of Service: 07/28/20 Reason For Visit: SI Subjective Notes: Conditional Voluntary Interim History: Jerson was quite uncomfortable since he is WD from opiates. He did acknowledge that he feels safe on the unit. He is eating and drinking fluids. Medication Compliance: Yes Side effects from medications: No Attending Groups: No Review of Systems Acute medical concerns: No Medical Review of Systems: unchanged Mental Status Exam Mental Status Exam Patient Appearance: Disheveled (on hospital gowns) and Unkempt Patient Orientation: Person, Place, Time and Situation Level of Consciousness: Awake and Appropriate Patient Behavior: Appropriate and Guarded Mood Description: Depressed Affect Description: Constricted Patient Cognition Impaired: No Ability to Follow Directions: Good Speech Pattern: Clear Hallucinations: Auditory Delusions: Paranoid Ideation Perceptual Disturbances: Hallucinations Thought Process: Slowed Thinking Thought Content: positive for Circumstantial, negative for Suicidal Ideation and negative for Homicidal Ideation Depressive Symptoms: Increased Anxiety, Insomnia, Difficulty Sleeping, Changes in Appetite and Significant Weight Gain Abnormal Motor Activity Signs and Symptoms: Psychomotor Retardation Judgement: Poor Diagnostics Vital Signs (24Hr): Vital Signs - 24 hr 07/27/20 19:31 07/27/20 20:28 07/27/20 20:29 Temperature 98.2 F Pulse Rate 72 80 80 Respiratory Rate 16 Blood Pressure 95/54 L 105/64 105/64 Pulse Oximetry 98 07/28/20 06:45 07/28/20 09:13 07/28/20 09:14 Temperature 97.5 F Pulse Rate 65 69 69 Respiratory Rate Blood Pressure 103/64 91/53 L 91/53 L Pulse Oximetry 07/28/20 14:24 Temperature Pulse Rate 114 H Respiratory Rate Blood Pressure 92/56 L Pulse Oximetry Body Mass Index 30.7 Labs Results: 07/25/20 20:35 07/25/20 20:35 Labs: Laboratory Results - last 48 hr 07/26/20 07/26/20 16:38 Unknown Urine Color YELLOW Urine Appearance CLEAR Urine pH 6.0 Ur Specific [place] >= 1.030 H Urine Protein NEG Urine Glucose (UA) NEG Urine Ketones >=80 Urine Blood 2+ H Urine Nitrite NEG Ur Leukocyte Esterase NEG Urine RBC 5-9 H Urine WBC 0 Ur Squamous Epith Cells 1+ Urine Bacteria NONE Urine Opiates Screen POSITIVE H Ur Barbiturates Screen Not Detected Ur Phencyclidine Scrn Not Detected Ur Amphetamines Screen Not Detected U Benzodiazepines Scrn Not Detected Urine Cocaine Screen Not Detected U Marijuana (THC) Screen Not Detected Imaging Radiology Impressions: ITS Impressions Chest X-Ray 07/26/20 11:31 IMPRESSION: No acute cardiopulmonary process seen. Medications Medications Current Medications Generic Name Dose Route Start Last Admin Trade Name Freq PRN Reason Stop Dose Admin Acetaminophen 650 mg 07/26/20 19:10 07/26/20 21:45 Acetaminophen 325 Mg Tablet PO 650 mg Q6H PRN Administration Headache/Pain Mild Scale (1-3) Al Hydroxide/Mg Hydroxide 30 ml 07/26/20 19:10 Magnesium Hydrox/Alum Hydrox 30 Ml Oral.Susp PO Q6H PRN Heartburn/Nausea Amitriptyline HCl 25 mg 07/26/20 21:00 07/27/20 20:22 Amitriptyline Hcl 25 Mg Tablet PO 25 mg BEDTIME JAMES Administration Atenolol 25 mg 07/26/20 09:00 07/28/20 09:13 Atenolol 25 Mg Tablet PO Not Given DAILY JAMES Protocol Clonazepam 1 mg 07/26/20 09:00 07/28/20 09:11 Clonazepam 1 Mg Tablet PO 1 mg BID JAMES Administration Clonidine HCl 0.1 mg 07/26/20 21:00 07/27/20 20:28 Clonidine Hcl 0.1 Mg Tablet PO 0.1 mg BEDTIME JAMES Administration Protocol Clonidine HCl 0.1 mg 07/26/20 19:35 07/27/20 01:14 Clonidine Hcl 0.1 Mg Tablet PO 0.1 mg Q4H PRN Administration Opiate Withdrawal Protocol Fluticasone Propionate 2 spray 07/26/20 09:00 07/28/20 09:10 Fluticasone Propionate Nasal 16 Gm [place] NOSTRIL-B 2 spray DAILY JAMES Administration Hydroxyzine HCl 25 mg 07/26/20 19:10 07/27/20 01:14 Hydroxyzine Hcl 25 Mg Tablet PO 25 mg BEDTIME PRN Administration Anxiety Lorazepam 1 mg 07/26/20 19:16 07/28/20 02:40 Lorazepam 1 Mg Tablet PO 07/30/20 19:15 1 mg Q4H PRN Administration Breakthrough alcohol withdrawa Magnesium Hydroxide 30 ml 07/26/20 19:10 Milk Of Magnesia 30 Ml Oral.Susp PO DAILY PRN Constipation Methadone HCl 10 mg 07/31/20 08:00 Methadone Hcl 1 Mg/0.1 Ml Oral.Conc PO 07/31/20 08:01 ONCE ONE Methadone HCl 5 mg 08/01/20 08:00 Methadone Hcl 1 Mg/0.1 Ml Oral.Conc PO 08/01/20 08:01 ONCE ONE Methadone HCl 20 mg 07/29/20 08:00 Methadone Hcl 1 Mg/0.1 Ml Oral.Conc PO 07/29/20 08:01 ONCE ONE Methadone HCl 15 mg 07/30/20 08:00 Methadone Hcl 1 Mg/0.1 Ml Oral.Conc PO 07/30/20 08:01 ONCE ONE Mirtazapine 15 mg 07/26/20 21:00 07/27/20 20:22 Mirtazapine 15 Mg Tablet PO 15 mg BEDTIME JAMES Administration Risperidone 1 mg 07/27/20 21:00 07/28/20 09:10 Risperidone 1 Mg Tablet PO 1 mg BID JAMES Administration Sucralfate 1 gm 07/26/20 09:00 07/28/20 14:23 Sucralfate 1 Gm Tablet PO 1 gm QID JAMES Administration Tamsulosin HCl 0.4 mg 07/26/20 09:00 07/28/20 09:10 Tamsulosin Hcl 0.4 Mg Capsule PO 0.4 mg DAILY JAMES Administration Verapamil HCl 40 mg 07/26/20 09:00 07/28/20 14:24 Verapamil Hcl 40 Mg Tablet PO Not Given TID [facility] Protocol Allergies Allergies Allergy/AdvReac Type Severity Reaction Status Date / Time trazodone [TRAZODONE] Allergy Severe FACIAL Verified 04/07/20 09:20 SWELLING, swelling cat dander [CATS] Allergy Intermediate FACIAL Verified 04/07/20 09:20 ITCHING doxepin [DOXEPIN] Allergy Intermediate WEIGHT Verified 04/07/20 09:20 GAIN/LEG SWELLING Iodinated Contrast Media Allergy Intermediate ITCHING Verified 04/07/20 09:20 [IV DYE, IODINE CONTAINING CONTRAST ] nitroglycerin [NITROGLYCERIN] Allergy Unknown UNKNOWN Verified 04/07/20 09:20 tramadol [TRAMADOL] Allergy Unknown UNKNOWN, Verified 04/07/20 09:20 dry mouth ibuprofen [From MOTRIN] AdvReac Intermediate GI UPSET Verified 04/07/20 09:20 quetiapine [From SEROQUEL] AdvReac Intermediate FACIAL Verified 04/07/20 09:20 SWELLING aspirin [ASPIRIN] AdvReac Mild Stomach Verified 04/07/20 09:20 Upset Ibuprofen Allergy Unknown stomach Uncoded 04/07/20 09:20 ache IV contrast Allergy Unknown Unknown Uncoded 04/07/20 09:20 Motrin Allergy Unknown stomach Uncoded 04/07/20 09:20 pain Assessment & Plan Assessment & Plan (1) Psychosis: Qualifiers: Psychosis type: unspecified psychosis type Qualified Code(s): F29 - Unspecified psychosis not due to a substance or known physiological condition Status: Acute Code(s): F29 - Unspecified psychosis not due to a substance or known physiological condition (2) Opioid abuse: Status: Acute Code(s): F11.10 - Opioid abuse, uncomplicated (3) Alcohol dependence: Status: Acute Code(s): F10.20 - Alcohol dependence, uncomplicated Assessment and Plan: The patient is a middle age male with a long history of depression, psychosis, mood lability and polysubstance dependence, with poor social support, admitted for a recent relapse on heroin, alcohol and psychosis, unable to take care himself in the community. Plan: Increase Risperdal 1 mg po bid. If he tolerates well, we will consider Invega Sustenna Plan: refer to substance abuse clinic [place] current treatment plan Greater than 50% of the session was spent on counseling and/or coordination of care Reason for contiued inpatient stay Substantial Risk for: inability to function and rapid decompensation
[2020-07-28] MEDS: Amitriptyline HCl 25 MG TABLET PO (20:24)
[2020-07-28] MEDS: Mirtazapine 15 MG TABLET PO (20:25)
[2020-07-28] MEDS: hydrOXYzine HCL 25 MG TABLET PO (23:50)
[2020-07-29] VITALS (10 sets, daily range): BP systolic 91–108; BP diastolic 52–62; PULSE 73–120; RESP 14–18; TEMP 36.3–37; O2SAT 96–100
[2020-07-29] MEDS: clonazePAM 1 MG TABLET PO ×2 (08:27→20:06)
[2020-07-29] MEDS: Fluticasone Propionate Nasal 16 GM SPRAY 2 SPRAY NOSTRIL-B (08:27)
[2020-07-29] MEDS: Tamsulosin HCL 0.4 MG CAPSULE PO (08:28)
[2020-07-29] MEDS: risperiDONE 1 MG TABLET PO ×2 (08:28→20:06)
[2020-07-29] MEDS: Sucralfate 1 GM TABLET PO ×4 (08:28→20:06)
[2020-07-29] MEDS: Acetaminophen 325 MG TABLET 650 MG PO (13:11)
[2020-07-29] MEDS: Milk of Magnesia 30 ML ORAL.SUSP PO (13:11)
--- NOTE | 2020-07-29 17:11 | HO.PSYCHPN ---
Subjective Subjective Date of Service: 07/29/20 Reason For Visit: SI Subjective Notes: Conditional Voluntary Interim History: Jerson was feeling somewhat better today. He was able to be up and to take a shower. He was eating a little better. Medication Compliance: Yes Side effects from medications: No Attending Groups: No Review of Systems Acute medical concerns: No Medical Review of Systems: unchanged Mental Status Exam Mental Status Exam Patient Appearance: Disheveled (on hospital gowns) and Unkempt Patient Orientation: Person, Place, Time and Situation Level of Consciousness: Awake and Appropriate Patient Behavior: Appropriate and Guarded Mood Description: Depressed Affect Description: Constricted Patient Cognition Impaired: No Ability to Follow Directions: Good Speech Pattern: Clear Hallucinations: Auditory Delusions: Paranoid Ideation Perceptual Disturbances: Hallucinations Thought Process: Slowed Thinking Thought Content: positive for Circumstantial, negative for Suicidal Ideation and negative for Homicidal Ideation Depressive Symptoms: Increased Anxiety, Insomnia, Difficulty Sleeping, Changes in Appetite and Significant Weight Gain Abnormal Motor Activity Signs and Symptoms: Psychomotor Retardation Judgement: Poor Diagnostics Vital Signs (24Hr): Vital Signs - 24 hr 07/28/20 20:00 07/28/20 20:33 07/29/20 04:43 Temperature 98.6 F 97.4 F Pulse Rate 73 85 120 H Respiratory Rate 16 18 Blood Pressure 106/60 92/55 L 95/62 Pulse Oximetry 97 100 07/29/20 08:30 07/29/20 12:00 Temperature Pulse Rate 73 77 Respiratory Rate 14 Blood Pressure 108/57 L 105/58 L Pulse Oximetry Body Mass Index 30.7 Labs Results: 07/25/20 20:35 07/25/20 20:35 Imaging Radiology Impressions: ITS Impressions Chest X-Ray 07/26/20 11:31 IMPRESSION: No acute cardiopulmonary process seen. Medications Medications Current Medications Generic Name Dose Route Start Last Admin Trade Name Freq PRN Reason Stop Dose Admin Acetaminophen 650 mg 07/26/20 19:10 07/29/20 13:11 Acetaminophen 325 Mg Tablet PO 650 mg Q6H PRN Administration Headache/Pain Mild Scale (1-3) Al Hydroxide/Mg Hydroxide 30 ml 07/26/20 19:10 Magnesium Hydrox/Alum Hydrox 30 Ml Oral.Susp PO Q6H PRN Heartburn/Nausea Amitriptyline HCl 25 mg 07/26/20 21:00 07/28/20 20:24 Amitriptyline Hcl 25 Mg Tablet PO 25 mg BEDTIME JAMES Administration Atenolol 25 mg 07/26/20 09:00 07/29/20 08:30 Atenolol 25 Mg Tablet PO Not Given DAILY JAMES Protocol Clonazepam 1 mg 07/26/20 09:00 07/29/20 08:27 Clonazepam 1 Mg Tablet PO 1 mg BID JAMES Administration Clonidine HCl 0.1 mg 07/26/20 21:00 07/28/20 20:33 Clonidine Hcl 0.1 Mg Tablet PO Not Given BEDTIME JAMES Protocol Clonidine HCl 0.1 mg 07/26/20 19:35 07/27/20 01:14 Clonidine Hcl 0.1 Mg Tablet PO 0.1 mg Q4H PRN Administration Opiate Withdrawal Protocol Fluticasone Propionate 2 spray 07/26/20 09:00 07/29/20 08:27 Fluticasone Propionate Nasal 16 Gm [place] NOSTRIL-B 2 spray DAILY JAMES Administration Hydroxyzine HCl 25 mg 07/26/20 19:10 07/28/20 23:50 Hydroxyzine Hcl 25 Mg Tablet PO 25 mg BEDTIME PRN Administration Anxiety Lorazepam 1 mg 07/26/20 19:16 07/28/20 23:50 Lorazepam 1 Mg Tablet PO 07/30/20 19:15 1 mg Q4H PRN Administration Breakthrough alcohol withdrawa Magnesium Hydroxide 30 ml 07/26/20 19:10 07/29/20 13:11 Milk Of Magnesia 30 Ml Oral.Susp PO 30 ml DAILY PRN Administration Constipation Methadone HCl 10 mg 07/31/20 08:00 Methadone Hcl 1 Mg/0.1 Ml Oral.Conc PO 07/31/20 08:01 ONCE ONE Methadone HCl 5 mg 08/01/20 08:00 Methadone Hcl 1 Mg/0.1 Ml Oral.Conc PO 08/01/20 08:01 ONCE ONE Methadone HCl 15 mg 07/30/20 08:00 Methadone Hcl 1 Mg/0.1 Ml Oral.Conc PO 07/30/20 08:01 ONCE ONE Mirtazapine 15 mg 07/26/20 21:00 07/28/20 20:25 Mirtazapine 15 Mg Tablet PO 15 mg BEDTIME JAMES Administration Ondansetron HCl 4 mg 07/28/20 19:58 07/28/20 20:34 Ondansetron Odt 4 Mg Tab.Rapdis TRANSLINGU 4 mg Q6H PRN Administration Nausea Risperidone 1 mg 07/27/20 21:00 07/29/20 08:28 Risperidone 1 Mg Tablet PO 1 mg BID JAMES Administration Sucralfate 1 gm 07/26/20 09:00 07/29/20 13:11 Sucralfate 1 Gm Tablet PO 1 gm QID JAMES Administration Tamsulosin HCl 0.4 mg 07/26/20 09:00 07/29/20 08:28 Tamsulosin Hcl 0.4 Mg Capsule PO 0.4 mg DAILY JAMES Administration Verapamil HCl 40 mg 07/26/20 09:00 07/29/20 08:30 Verapamil Hcl 40 Mg Tablet PO Not Given TID [facility] Protocol Allergies Allergies Allergy/AdvReac Type Severity Reaction Status Date / Time trazodone [TRAZODONE] Allergy Severe FACIAL Verified 04/07/20 09:20 SWELLING, swelling cat dander [CATS] Allergy Intermediate FACIAL Verified 04/07/20 09:20 ITCHING doxepin [DOXEPIN] Allergy Intermediate WEIGHT Verified 04/07/20 09:20 GAIN/LEG SWELLING Iodinated Contrast Media Allergy Intermediate ITCHING Verified 04/07/20 09:20 [IV DYE, IODINE CONTAINING CONTRAST ] nitroglycerin [NITROGLYCERIN] Allergy Unknown UNKNOWN Verified 04/07/20 09:20 tramadol [TRAMADOL] Allergy Unknown UNKNOWN, Verified 04/07/20 09:20 dry mouth ibuprofen [From MOTRIN] AdvReac Intermediate GI UPSET Verified 04/07/20 09:20 quetiapine [From SEROQUEL] AdvReac Intermediate FACIAL Verified 04/07/20 09:20 SWELLING aspirin [ASPIRIN] AdvReac Mild Stomach Verified 04/07/20 09:20 Upset Ibuprofen Allergy Unknown stomach Uncoded 04/07/20 09:20 ache IV contrast Allergy Unknown Unknown Uncoded 04/07/20 09:20 Motrin Allergy Unknown stomach Uncoded 04/07/20 09:20 pain Assessment & Plan Assessment & Plan (1) Psychosis: Qualifiers: Psychosis type: unspecified psychosis type Qualified Code(s): F29 - Unspecified psychosis not due to a substance or known physiological condition Status: Acute Code(s): F29 - Unspecified psychosis not due to a substance or known physiological condition (2) Opioid abuse: Status: Acute Code(s): F11.10 - Opioid abuse, uncomplicated (3) Alcohol dependence: Status: Acute Code(s): F10.20 - Alcohol dependence, uncomplicated Assessment and Plan: The patient is a middle age male with a long history of depression, psychosis, mood lability and polysubstance dependence, with poor social support, admitted for a recent relapse on heroin, alcohol and psychosis, unable to take care himself in the community. Plan: Increase Risperdal 1 mg po bid. If he tolerates well, we will consider Invega Sustenna Plan: refer to substance abuse clinic [place] current treatment plan Greater than 50% of the session was spent on counseling and/or coordination of care Patient educated on: diagnosis, medication risk/benefits and substance abuse Informed Consent: further education needed Reason for contiued inpatient stay Substantial Risk for: inability to function and rapid decompensation
[2020-07-29] MEDS: LORazepam 1 MG TABLET PO (18:37)
[2020-07-29] MEDS: Mirtazapine 15 MG TABLET PO (20:06)
[2020-07-29] MEDS: Amitriptyline HCl 25 MG TABLET PO (20:06)
[2020-07-30] VITALS (12 sets, daily range): BP systolic 102–130; BP diastolic 58–75; PULSE 66–80; RESP 16–17; TEMP 36.6–37.1; O2SAT 97–99
[2020-07-30] MEDS: LORazepam 1 MG TABLET PO ×3 (00:33→18:45)
[2020-07-30] MEDS: hydrOXYzine HCL 25 MG TABLET PO ×2 (00:33→23:33)
[2020-07-30] MEDS: Tamsulosin HCL 0.4 MG CAPSULE PO (09:17)
[2020-07-30] MEDS: Sucralfate 1 GM TABLET PO ×4 (09:17→21:29)
[2020-07-30] MEDS: risperiDONE 1 MG TABLET PO (09:17)
[2020-07-30] MEDS: atenoloL 25 MG TABLET PO (09:18)
[2020-07-30] MEDS: Acetaminophen 325 MG TABLET 650 MG PO ×2 (09:18→15:14)
[2020-07-30] MEDS: VerapamiL HCL 40 MG TABLET PO ×2 (09:19→14:37)
[2020-07-30] MEDS: clonazePAM 1 MG TABLET PO ×2 (09:19→21:29)
--- NOTE | 2020-07-30 13:18 | HO.PSYCHPN ---
Subjective Subjective Date of Service: 07/30/20 Reason For Visit: SI Interim History: The patient remains in his room most of the time, he admitted auditory hallucinations, lack of energy and dysphoria. He wants Methadone maintenance therapy. We discussed options and he agreed to use long acting atypical antipsychotics. Medication Compliance: Yes Side effects from medications: No Attending Groups: No Review of Systems Review of Systems Yes all other systems are reviewed and are negative Mental Status Exam Mental Status Exam Patient Appearance: Disheveled Patient Orientation: Person, Place, Time and Situation Level of Consciousness: Awake Patient Behavior: Appropriate and Cooperative Mood Description: Withdrawn Affect Description: Constricted Patient Cognition Impaired: No Ability to Follow Directions: Good Speech Pattern: Clear Memory Description: Intact Hallucinations: Auditory Delusions: Not Present Thought Process: Slowed Thinking Thought Content: positive for Poverty of Content Judgement: Fair Diagnostics Vital Signs (24Hr): Vital Signs - 24 hr 07/29/20 16:00 07/29/20 17:36 07/29/20 20:00 Temperature 98.6 F 98.6 F Pulse Rate 75 75 78 Respiratory Rate 18 18 Blood Pressure 91/53 L 91/53 L 94/52 L Pulse Oximetry 96 96 07/29/20 20:07 07/30/20 06:10 07/30/20 09:15 Temperature 98.5 F 98.3 F Pulse Rate 78 76 68 Respiratory Rate 16 16 Blood Pressure 94/52 L 115/60 130/75 Pulse Oximetry 99 99 07/30/20 09:18 07/30/20 09:19 Temperature Pulse Rate Respiratory Rate Blood Pressure 130/75 130/75 Pulse Oximetry Body Mass Index 30.7 Labs Results: 07/25/20 20:35 07/25/20 20:35 Imaging Radiology Impressions: ITS Impressions Chest X-Ray 07/26/20 11:31 IMPRESSION: No acute cardiopulmonary process seen. Medications Medications Current Medications Generic Name Dose Route Start Last Admin Trade Name Freq PRN Reason Stop Dose Admin Acetaminophen 650 mg 07/26/20 19:10 07/30/20 09:18 Acetaminophen 325 Mg Tablet PO 650 mg Q6H PRN Administration Headache/Pain Mild Scale (1-3) Al Hydroxide/Mg Hydroxide 30 ml 07/26/20 19:10 Magnesium Hydrox/Alum Hydrox 30 Ml Oral.Susp PO Q6H PRN Heartburn/Nausea Amitriptyline HCl 25 mg 07/26/20 21:00 07/29/20 20:06 Amitriptyline Hcl 25 Mg Tablet PO 25 mg BEDTIME JAMES Administration Atenolol 25 mg 07/26/20 09:00 07/30/20 09:18 Atenolol 25 Mg Tablet PO 25 mg DAILY JAMES Administration Protocol Clonazepam 1 mg 07/26/20 09:00 07/30/20 09:19 Clonazepam 1 Mg Tablet PO 1 mg BID JAMES Administration Clonidine HCl 0.1 mg 07/26/20 21:00 07/29/20 20:07 Clonidine Hcl 0.1 Mg Tablet PO Not Given BEDTIME JAMES Protocol Clonidine HCl 0.1 mg 07/26/20 19:35 07/27/20 01:14 Clonidine Hcl 0.1 Mg Tablet PO 0.1 mg Q4H PRN Administration Opiate Withdrawal Protocol Fluticasone Propionate 2 spray 07/26/20 09:00 07/29/20 08:27 Fluticasone Propionate Nasal 16 Gm [place] NOSTRIL-B 2 spray DAILY JAMES Administration Hydroxyzine HCl 25 mg 07/26/20 19:10 07/30/20 00:33 Hydroxyzine Hcl 25 Mg Tablet PO 25 mg BEDTIME PRN Administration Anxiety Lorazepam 1 mg 07/26/20 19:16 07/30/20 09:17 Lorazepam 1 Mg Tablet PO 07/30/20 19:15 1 mg Q4H PRN Administration Breakthrough alcohol withdrawa Magnesium Hydroxide 30 ml 07/26/20 19:10 07/29/20 13:11 Milk Of Magnesia 30 Ml Oral.Susp PO 30 ml DAILY PRN Administration Constipation Methadone HCl 10 mg 07/31/20 08:00 Methadone Hcl 1 Mg/0.1 Ml Oral.Conc PO 07/31/20 08:01 ONCE ONE Methadone HCl 5 mg 08/01/20 08:00 Methadone Hcl 1 Mg/0.1 Ml Oral.Conc PO 08/01/20 08:01 ONCE ONE Mirtazapine 15 mg 07/26/20 21:00 07/29/20 20:06 Mirtazapine 15 Mg Tablet PO 15 mg BEDTIME JAMES Administration Ondansetron HCl 4 mg 07/28/20 19:58 07/28/20 20:34 Ondansetron Odt 4 Mg Tab.Rapdis TRANSLINGU 4 mg Q6H PRN Administration Nausea Risperidone 1 mg 07/27/20 21:00 07/30/20 09:17 Risperidone 1 Mg Tablet PO 1 mg BID [facility] Administration Sucralfate 1 gm 07/26/20 09:00 07/30/20 09:17 Sucralfate 1 Gm Tablet PO 1 gm QID [facility] Administration Tamsulosin HCl 0.4 mg 07/26/20 09:00 07/30/20 09:17 Tamsulosin Hcl 0.4 Mg Capsule PO 0.4 mg DAILY [facility] Administration Verapamil HCl 40 mg 07/26/20 09:00 07/30/20 09:19 Verapamil Hcl 40 Mg Tablet PO 40 mg TID [facility] Administration Protocol Allergies Allergies Allergy/AdvReac Type Severity Reaction Status Date / Time trazodone [TRAZODONE] Allergy Severe FACIAL Verified 04/07/20 09:20 SWELLING, swelling cat dander [CATS] Allergy Intermediate FACIAL Verified 04/07/20 09:20 ITCHING doxepin [DOXEPIN] Allergy Intermediate WEIGHT Verified 04/07/20 09:20 GAIN/LEG SWELLING Iodinated Contrast Media Allergy Intermediate ITCHING Verified 04/07/20 09:20 [IV DYE, IODINE CONTAINING CONTRAST ] nitroglycerin [NITROGLYCERIN] Allergy Unknown UNKNOWN Verified 04/07/20 09:20 tramadol [TRAMADOL] Allergy Unknown UNKNOWN, Verified 04/07/20 09:20 dry mouth ibuprofen [From MOTRIN] AdvReac Intermediate GI UPSET Verified 04/07/20 09:20 quetiapine [From SEROQUEL] AdvReac Intermediate FACIAL Verified 04/07/20 09:20 SWELLING aspirin [ASPIRIN] AdvReac Mild Stomach Verified 04/07/20 09:20 Upset Ibuprofen Allergy Unknown stomach Uncoded 04/07/20 09:20 ache IV contrast Allergy Unknown Unknown Uncoded 04/07/20 09:20 Motrin Allergy Unknown stomach Uncoded 04/07/20 09:20 pain Assessment & Plan Assessment & Plan (1) Psychosis: Qualifiers: Psychosis type: unspecified psychosis type Qualified Code(s): F29 - Unspecified psychosis not due to a substance or known physiological condition Status: Acute Code(s): F29 - Unspecified psychosis not due to a substance or known physiological condition (2) Opioid abuse: Status: Acute Code(s): F11.10 - Opioid abuse, uncomplicated (3) Alcohol dependence: Status: Acute Code(s): F10.20 - Alcohol dependence, uncomplicated Assessment and Plan: The patient is a middle age male with a long history of depression, psychosis, mood lability and polysubstance dependence, with poor social support, admitted for a recent relapse on heroin, alcohol and psychosis, unable to take care himself in the community. Plan: Discontinue Risperdal 1 mg po bid. Start Invega Sustenna IM Plan: refer to substance abuse clinic [place] current treatment plan Greater than 50% of the session was spent on counseling and/or coordination of care Reason for contiued inpatient stay Substantial Risk for: harm to self, harm to others, inability to function and med/psych decompensation
[2020-07-30] MEDS: Paliperidone Palmitate 234 MG/1.5 ML SYRINGE IM (15:00)
[2020-07-30] MEDS: Milk of Magnesia 30 ML ORAL.SUSP PO (15:05)
--- NOTE | 2020-07-30 15:41 | HO.ADDICT_ITS ---
History of Present Illness Date of Service: 07/30/2020 Chief Complaint: SI Reason for Consult: opioid withdrawal Requesting physician: Michelet Zaman Discussed with referring provider: Yes Sources of Information: patient interviewed and chart reviewed HPI Narrative: Patient is a 50 year old Faroese speaking male currently psychiatrically admitted with He was started on methadone taper late last week to treat acute opioid withdrawal sx. Today patient reporting that he wishes to continue on methadone outpatient. Patient seen in room 510. He was laying in bed, awake, alert and engaged in interview. Patient reporting he only recently started using heroin (within the last 6-8 months following the of his nephew). He reports using btwn 10-30 bags daily. Howard any history of treatment, though H&P reports he was recently on methadone. At time of interview he was reporting anxiety, restlessness, chills, and body aches. He received 15mg earlier in the morning. He states that he wishes to continue with methadone as he no longer wants to continue using heroin and the environment in which he is living is challenging as those who live there currently use drugs. Past Psychiatric History: Multiple hospital stays. He has providers at [facility] Medical Evaluation Reviewed: Yes EKG WNL Review of Systems Constitutional: Reports as per HPI Diagnostics Vital Signs (24Hr): Vital Signs - 24 hr 07/29/20 16:00 07/29/20 17:36 07/29/20 20:00 Temperature 98.6 F 98.6 F Pulse Rate 75 75 78 Respiratory Rate 18 18 Blood Pressure 91/53 L 91/53 L 94/52 L Pulse Oximetry 96 96 07/29/20 20:07 07/30/20 06:10 07/30/20 09:15 Temperature 98.5 F 98.3 F Pulse Rate 78 76 68 Respiratory Rate 16 16 Blood Pressure 94/52 L 115/60 130/75 Pulse Oximetry 99 99 07/30/20 09:18 07/30/20 09:19 07/30/20 14:34 Temperature 98.2 F Pulse Rate 66 Respiratory Rate 17 Blood Pressure 130/75 130/75 102/61 Pulse Oximetry 98 07/30/20 14:37 Temperature Pulse Rate 66 Respiratory Rate Blood Pressure 102/66 Pulse Oximetry Body Mass Index 30.7 Labs Results: 07/25/20 20:35 07/25/20 20:35 Imaging Radiology Impressions: ITS Impressions Chest X-Ray 07/26/20 11:31 IMPRESSION: No acute cardiopulmonary process seen. Mental Status Exam Mental Status Exam Patient Appearance: Appropriate Patient Orientation: Person, Place, Time and Situation Level of Consciousness: Awake, Appropriate and Alert Patient Behavior: Appropriate Mood Description: Appropriate Affect Description: Appropriate Ability to Follow Directions: Excellent Speech Pattern: Clear Thought Process: Goal Oriented Thought Content: positive for Intact and positive for Circumstantial Depressive Symptoms: Difficulty Sleeping, Muscle Pain, Hopelessness, Feelings of Guilt and Unhappiness Judgement: Fair Medications Medications Current Medications Generic Name Dose Route Start Last Admin Trade Name Freq PRN Reason Stop Dose Admin Acetaminophen 650 mg 07/26/20 19:10 07/30/20 15:14 Acetaminophen 325 Mg Tablet PO 650 mg Q6H PRN Administration Headache/Pain Mild Scale (1-3) Al Hydroxide/Mg Hydroxide 30 ml 07/26/20 19:10 Magnesium Hydrox/Alum Hydrox 30 Ml Oral.Susp PO Q6H PRN Heartburn/Nausea Amitriptyline HCl 25 mg 07/26/20 21:00 07/29/20 20:06 Amitriptyline Hcl 25 Mg Tablet PO 25 mg BEDTIME JAMES Administration Atenolol 25 mg 07/26/20 09:00 07/30/20 09:18 Atenolol 25 Mg Tablet PO 25 mg DAILY JAMES Administration Protocol Clonazepam 1 mg 07/26/20 09:00 07/30/20 09:19 Clonazepam 1 Mg Tablet PO 1 mg BID JAMES Administration Clonidine HCl 0.1 mg 07/26/20 21:00 07/29/20 20:07 Clonidine Hcl 0.1 Mg Tablet PO Not Given BEDTIME JAMES Protocol Clonidine HCl 0.1 mg 07/26/20 19:35 07/27/20 01:14 Clonidine Hcl 0.1 Mg Tablet PO 0.1 mg Q4H PRN Administration Opiate Withdrawal Protocol Fluticasone Propionate 2 spray 07/26/20 09:00 07/30/20 13:45 Fluticasone Propionate Nasal 16 Gm [place] NOSTRIL-B Not Given DAILY JAMES Hydroxyzine HCl 25 mg 07/26/20 19:10 07/30/20 00:33 Hydroxyzine Hcl 25 Mg Tablet PO 25 mg BEDTIME PRN Administration Anxiety Lorazepam 1 mg 07/26/20 19:16 07/30/20 09:17 Lorazepam 1 Mg Tablet PO 07/30/20 19:15 1 mg Q4H PRN Administration Breakthrough alcohol withdrawa Magnesium Hydroxide 30 ml 07/26/20 19:10 07/30/20 15:05 Milk Of Magnesia 30 Ml Oral.Susp PO 30 ml DAILY PRN Administration Constipation Methadone HCl 30 mg 07/31/20 09:00 Methadone Hcl 1 Mg/0.1 Ml Oral.Conc PO DAILY JAMES Mirtazapine 15 mg 07/26/20 21:00 07/29/20 20:06 Mirtazapine 15 Mg Tablet PO 15 mg BEDTIME JAMES Administration Ondansetron HCl 4 mg 07/28/20 19:58 07/30/20 14:59 Ondansetron Odt 4 Mg Tab.Rapdis TRANSLINGU 4 mg Q6H PRN Administration Nausea Sucralfate 1 gm 07/26/20 09:00 07/30/20 14:37 Sucralfate 1 Gm Tablet PO 1 gm QID JAMES Administration Tamsulosin HCl 0.4 mg 07/26/20 09:00 07/30/20 09:17 Tamsulosin Hcl 0.4 Mg Capsule PO 0.4 mg DAILY JAMES Administration Verapamil HCl 40 mg 07/26/20 09:00 07/30/20 14:37 Verapamil Hcl 40 Mg Tablet PO 40 mg TID JAMES Administration Protocol Allergies Allergies Allergy/AdvReac Type Severity Reaction Status Date / Time trazodone [TRAZODONE] Allergy Severe FACIAL Verified 04/07/20 09:20 SWELLING, swelling cat dander [CATS] Allergy Intermediate FACIAL Verified 04/07/20 09:20 ITCHING doxepin [DOXEPIN] Allergy Intermediate WEIGHT Verified 04/07/20 09:20 GAIN/LEG SWELLING Iodinated Contrast Media Allergy Intermediate ITCHING Verified 04/07/20 09:20 [IV DYE, IODINE CONTAINING CONTRAST ] nitroglycerin [NITROGLYCERIN] Allergy Unknown UNKNOWN Verified 04/07/20 09:20 tramadol [TRAMADOL] Allergy Unknown UNKNOWN, Verified 04/07/20 09:20 dry mouth ibuprofen [From MOTRIN] AdvReac Intermediate GI UPSET Verified 04/07/20 09:20 quetiapine [From SEROQUEL] AdvReac Intermediate FACIAL Verified 04/07/20 09:20 SWELLING aspirin [ASPIRIN] AdvReac Mild Stomach Verified 04/07/20 09:20 Upset Ibuprofen Allergy Unknown stomach Uncoded 04/07/20 09:20 ache IV contrast Allergy Unknown Unknown Uncoded 04/07/20 09:20 Motrin Allergy Unknown stomach Uncoded 04/07/20 09:20 pain Assessment & Plan Assessment & Plan (1) Opioid use disorder: Status: Acute Code(s): F11.99 - Opioid use, unspecified with unspecified opioid-induced disorder Recommendations: * Additional 15mg of methadone ordered to address acute withdrawal sx * Recovery support team to facilitate intatke at [facility] when discharge date is determined * 30mg methadone QD * avoid multiple QT prolonging agents * Greater than 50% of the session was spent on counseling and/or coordination of care PMFSH Past Medical History Medical History Anxiety Chest pain Dysphagia GERD (gastroesophageal reflux disease) Weight loss Family History Family History Father HTN (hypertension) Diabetes Mother HTN (hypertension) Stroke Alzheimer disease Heart disease Surgical History Surgical History H/O umbilical hernia repair History of colonoscopy History of cystoscopy Social History Social History Household Members: Friend(s) Housing: Homeless Do you presently have visiting nurse or other home services: No Alcohol intake: current Alcohol intake frequency: 3 or more drinks per day Smoking Status: Current every day smoker Tobacco Type: Cigarette Packs Per Day: 1 Cigarettes Per Day: 20.0 Years Smoked: 9 Smoked in Last 30 Days: Yes Patient Interested in Nicotine Replacement: No Patient Given Instructions on How to Stop Smoking: No (patient stated he does not wish to quit at this time) Second Hand Smoke Exposure: Yes Use of substances other than those prescribed or required for medical reasons: Yes Substance Use Type: Crack/Cocaine Substance Use Frequency: Weekly Last Used Substance: Just Prior to Admission Currently Displaying Signs/Symptoms of Drug Intoxication Withdrawal: Yes Any prior treatment program specific to substance use: No Have you been hit, kicked, punched, or otherwise hurt by someone within the past year? If so, by whom?: No Do you feel safe in your current relationship?: No Is there a partner from a previous relationship who is making you feel unsafe now?: No Are you made to feel afraid or neglected: No Spiritual Healthcare Practices: none reported Jew Healthcare Practices: none reported Cultural Healthcare Practices: none reported Advance Directives: Yes Advance Directives Information Provided: No (did not wish to have information) Advance Directives on File: Yes Advance Directives Date on File: 02/24/20 Do you have thoughts of harming others: None Do you have a plan to hurt others: No Plan Recently lost weight without trying: Yes service: No Current occupational status: disabled Sexual orientation: Straight/Heterosexual
--- NOTE | 2020-07-30 15:48 | MHC.RECOVSUP ---
Recovery Support note: Patient is a 50 year old Estonian speaking male who presented to [facility] ED due to intoxication and SI. Patient was admitted to for psychiatric care. Patient was started on methadone to treat symptoms of withdrawal and he has expressed interest in continuing with methadone maintenance after discharge. This writer editor met with patient to initiate the referral process to [facility] in [place] ([address], Phone - [phone]) for methadone maintenance. Release of information has been signed by patient and relevant clinical information will be sent to [facility] when patient is closer to discharge (Fax- [phone]). [facility] in [place] offers intakes Thursday, Thursday and Thursday. Recovery Support Team available as needed to facilitate this referral. Discussed case with patient's social services coordinator.
[2020-07-30] MEDS: Amitriptyline HCl 25 MG TABLET PO (21:29)
[2020-07-30] MEDS: Mirtazapine 15 MG TABLET PO (21:29)
[2020-07-30] MEDS: cloNIDine HCL 0.1 MG TABLET PO (23:33)
[2020-07-31] VITALS (9 sets, daily range): BP systolic 91–124; BP diastolic 52–77; PULSE 67–89; RESP 17–18; TEMP 36.4–36.7; O2SAT 97–100
[2020-07-31] MEDS: Acetaminophen 325 MG TABLET 650 MG PO ×2 (09:27→15:26)
[2020-07-31] MEDS: Sucralfate 1 GM TABLET PO ×4 (09:27→20:50)
[2020-07-31] MEDS: clonazePAM 1 MG TABLET PO ×2 (09:27→20:49)
[2020-07-31] MEDS: Tamsulosin HCL 0.4 MG CAPSULE PO (09:27)
--- NOTE | 2020-07-31 11:05 | P.PNPSI_ITS ---
Subjective Subjective Date of Service: 07/31/20 Reason For Visit: SI Subjective Notes: Conditional Voluntary Interim History: The patient reported poor sleep last night. He complaints of auditory hallucinations with derogatory content. He spents most of the time in his room isolative. Medication Compliance: Yes Side effects from medications: No Attending Groups: No Review of Systems Review of Systems Yes all other systems are reviewed and are negative Mental Status Exam Mental Status Exam Patient Appearance: Disheveled Patient Orientation: Person, Place, Time and Situation Level of Consciousness: Awake Patient Behavior: Passive Mood Description: Withdrawn Affect Description: Constricted Patient Cognition Impaired: No Ability to Follow Directions: Good Speech Pattern: Clear Memory Description: Intact Hallucinations: Auditory Delusions: Paranoid Ideation Thought Process: Slowed Thinking Thought Content: positive for Circumstantial Depressive Symptoms: Significant Weight Loss, Feelings of Guilt and Loss of Energy Judgement: Fair Diagnostics Vital Signs (24Hr): Vital Signs - 24 hr 07/30/20 14:34 07/30/20 14:37 07/30/20 16:00 Temperature 98.2 F 98.7 F Pulse Rate 66 66 80 Respiratory Rate 17 16 Blood Pressure 102/61 102/66 113/64 Pulse Oximetry 98 97 07/30/20 20:00 07/30/20 21:29 07/30/20 21:30 Temperature 97.8 F Pulse Rate 67 69 69 Respiratory Rate 16 Blood Pressure 118/69 108/58 L 108/58 L Pulse Oximetry 98 07/30/20 23:33 07/31/20 04:12 07/31/20 09:05 Temperature 98.1 F 97.9 F Pulse Rate 77 86 67 Respiratory Rate 18 18 Blood Pressure 119/64 91/52 L 96/55 L Pulse Oximetry 99 100 07/31/20 09:30 Temperature Pulse Rate 67 Respiratory Rate Blood Pressure 96/55 L Pulse Oximetry Body Mass Index 30.7 Labs Results: 07/25/20 20:35 07/25/20 20:35 Imaging Radiology Impressions: ITS Impressions Chest X-Ray 07/26/20 11:31 IMPRESSION: No acute cardiopulmonary process seen. Medications Medications Current Medications Generic Name Dose Route Start Last Admin Trade Name Freq PRN Reason Stop Dose Admin Acetaminophen 650 mg 07/26/20 19:10 07/31/20 09:27 Acetaminophen 325 Mg Tablet PO 650 mg Q6H PRN Administration Headache/Pain Mild Scale (1-3) Al Hydroxide/Mg Hydroxide 30 ml 07/26/20 19:10 Magnesium Hydrox/Alum Hydrox 30 Ml Oral.Susp PO Q6H PRN Heartburn/Nausea Amitriptyline HCl 25 mg 07/26/20 21:00 07/30/20 21:29 Amitriptyline Hcl 25 Mg Tablet PO 25 mg BEDTIME JAMES Administration Atenolol 25 mg 07/26/20 09:00 07/31/20 09:30 Atenolol 25 Mg Tablet PO Not Given DAILY JAMES Protocol Clonazepam 1 mg 07/26/20 09:00 07/31/20 09:27 Clonazepam 1 Mg Tablet PO 1 mg BID JAMES Administration Clonidine HCl 0.1 mg 07/26/20 21:00 07/30/20 21:29 Clonidine Hcl 0.1 Mg Tablet PO Not Given BEDTIME JAMES Protocol Clonidine HCl 0.1 mg 07/26/20 19:35 07/30/20 23:33 Clonidine Hcl 0.1 Mg Tablet PO 0.1 mg Q4H PRN Administration Opiate Withdrawal Protocol Fluticasone Propionate 2 spray 07/26/20 09:00 07/30/20 13:45 Fluticasone Propionate Nasal 16 Gm [place] NOSTRIL-B Not Given DAILY JAMES Hydroxyzine HCl 25 mg 07/26/20 19:10 07/30/20 23:33 Hydroxyzine Hcl 25 Mg Tablet PO 25 mg BEDTIME PRN Administration Anxiety Magnesium Hydroxide 30 ml 07/26/20 19:10 07/30/20 15:05 Milk Of Magnesia 30 Ml Oral.Susp PO 30 ml DAILY PRN Administration Constipation Methadone HCl 30 mg 07/31/20 09:00 07/31/20 09:26 Methadone Hcl 1 Mg/0.1 Ml Oral.Conc PO 30 mg DAILY JAMES Administration Mirtazapine 15 mg 07/26/20 21:00 07/30/20 21:29 Mirtazapine 15 Mg Tablet PO 15 mg BEDTIME JAMES Administration Ondansetron HCl 4 mg 07/28/20 19:58 07/30/20 14:59 Ondansetron Odt 4 Mg Tab.Rapdis TRANSLINGU 4 mg Q6H PRN Administration Nausea Paliperidone Palmitate 156 mg 08/06/20 11:03 Paliperidone Palmitate 156 Mg/Ml Syringe IM 08/06/20 11:04 ONCE ONE Sucralfate 1 gm 07/26/20 09:00 07/31/20 09:27 Sucralfate 1 Gm Tablet PO 1 gm QID JAMES Administration Tamsulosin HCl 0.4 mg 07/26/20 09:00 07/31/20 09:27 Tamsulosin Hcl 0.4 Mg Capsule PO 0.4 mg DAILY JAMES Administration Verapamil HCl 40 mg 07/26/20 09:00 07/31/20 09:30 Verapamil Hcl 40 Mg Tablet PO Not Given TID [facility] Protocol Allergies Allergies Allergy/AdvReac Type Severity Reaction Status Date / Time trazodone [TRAZODONE] Allergy Severe FACIAL Verified 04/07/20 09:20 SWELLING, swelling cat dander [CATS] Allergy Intermediate FACIAL Verified 04/07/20 09:20 ITCHING doxepin [DOXEPIN] Allergy Intermediate WEIGHT Verified 04/07/20 09:20 GAIN/LEG SWELLING Iodinated Contrast Media Allergy Intermediate ITCHING Verified 04/07/20 09:20 [IV DYE, IODINE CONTAINING CONTRAST ] nitroglycerin [NITROGLYCERIN] Allergy Unknown UNKNOWN Verified 04/07/20 09:20 tramadol [TRAMADOL] Allergy Unknown UNKNOWN, Verified 04/07/20 09:20 dry mouth ibuprofen [From MOTRIN] AdvReac Intermediate GI UPSET Verified 04/07/20 09:20 quetiapine [From SEROQUEL] AdvReac Intermediate FACIAL Verified 04/07/20 09:20 SWELLING aspirin [ASPIRIN] AdvReac Mild Stomach Verified 04/07/20 09:20 Upset Ibuprofen Allergy Unknown stomach Uncoded 04/07/20 09:20 ache IV contrast Allergy Unknown Unknown Uncoded 04/07/20 09:20 Motrin Allergy Unknown stomach Uncoded 04/07/20 09:20 pain Assessment & Plan Assessment & Plan (1) Opioid use disorder: Status: Acute Code(s): F11.99 - Opioid use, unspecified with unspecified opioid-induced disorder Assessment and Plan: * Continue Methadone 50 mg, to be referred to [facility] Methadone clinic * Recovery support team to facilitate intatke at [facility] when discharge date is determined * avoid multiple QT prolonging agents * (2) Psychosis: Qualifiers: Psychosis type: unspecified psychosis type Qualified Code(s): F29 - Unspecified psychosis not due to a substance or known physiological condition Status: Acute Code(s): F29 - Unspecified psychosis not due to a substance or known physiological condition Assessment and Plan: The patient remains with psychotic symptoms, agreed long-acting atypical injection Greater than 50% of the session was spent on counseling and/or coordination of care Reason for contiued inpatient stay Substantial Risk for: harm to self, inability to function and med/psych de compensation
[2020-07-31] MEDS: Magnesium Hydrox/Alum Hydrox 30 ML ORAL.SUSP PO (17:38)
[2020-07-31] MEDS: cloNIDine HCL 0.1 MG TABLET PO (20:49)
[2020-07-31] MEDS: Amitriptyline HCl 25 MG TABLET PO (20:49)
[2020-07-31] MEDS: diphenhydrAMINE HCL 25 MG TABLET 100 MG PO (20:50)
[2020-07-31] MEDS: VerapamiL HCL 40 MG TABLET PO (20:50)
[2020-07-31] MEDS: Mirtazapine 15 MG TABLET PO (20:50)
[2020-07-31] MEDS: Famotidine 20 MG TABLET PO (20:50)
[2020-08-01] VITALS (9 sets, daily range): BP systolic 93–116; BP diastolic 53–63; PULSE 66–102; RESP 18–66; TEMP 36.1–36.6; O2SAT 98–100
--- NOTE | 2020-08-01 00:03 | PC.NURSE ---
Jerson appears to be sleeping at 2300. No signs of sweating and restlessness. Respirations at 18. Patient reports difficulty sleeping. Nurse did not wake patient for full CIWA assessment. Nurse will continue to monitor.
[2020-08-01] MEDS: hydrOXYzine HCL 25 MG TABLET PO (03:28)
[2020-08-01] MEDS: cloNIDine HCL 0.1 MG TABLET PO ×2 (03:29→20:14)
[2020-08-01] MEDS: Sucralfate 1 GM TABLET PO ×4 (08:53→20:14)
[2020-08-01] MEDS: clonazePAM 1 MG TABLET PO ×2 (08:53→20:14)
[2020-08-01] MEDS: atenoloL 25 MG TABLET PO (08:53)
[2020-08-01] MEDS: VerapamiL HCL 40 MG TABLET PO (08:53)
[2020-08-01] MEDS: Tamsulosin HCL 0.4 MG CAPSULE PO (08:53)
[2020-08-01] MEDS: Acetaminophen 325 MG TABLET 650 MG PO (08:54)
[2020-08-01] MEDS: Fluticasone Propionate Nasal 16 GM SPRAY 2 SPRAY NOSTRIL-B (09:20)
--- NOTE | 2020-08-01 10:38 | P.PNPSI_ITS ---
Subjective Subjective Date of Service: 08/01/20 Reason For Visit: SI Subjective Notes: Conditional Voluntary Interim History: The patient reported sporadic AH with derogatory content and visual hallucinations at night monsters, very ugly . Poor sleep with Benadryl. He also complained of depression, with lack of energy and anhedonia. Medication Compliance: Yes Side effects from medications: No Attending Groups: No Review of Systems Acute medical concerns: No Medical Review of Systems: unchanged Mental Status Exam Mental Status Exam Patient Appearance: Disheveled (on hospital gowns) and Unkempt Patient Orientation: Person, Place, Time and Situation Level of Consciousness: Awake and Appropriate Patient Behavior: Appropriate, Guarded and Cooperative Mood Description: Calm and Withdrawn Affect Description: Constricted Patient Cognition Impaired: No Ability to Follow Directions: Good Speech Pattern: Clear Memory Description: Intact Hallucinations: Auditory and Visual Delusions: Paranoid Ideation Thought Process: Slowed Thinking Thought Content: positive for [place] Depressive Symptoms: Significant Weight Loss, Loss of Int. in Activity and Feelings of Worthlessness Judgement: Fair Diagnostics Vital Signs (24Hr): Vital Signs - 24 hr 07/31/20 13:05 07/31/20 15:36 07/31/20 15:45 Temperature 97.9 F Pulse Rate 87 89 89 Respiratory Rate 18 17 Blood Pressure 124/77 105/59 L 105/59 L Pulse Oximetry 98 97 07/31/20 20:49 07/31/20 20:50 07/31/20 21:03 Temperature 97.5 F Pulse Rate 85 85 85 Respiratory Rate 18 Blood Pressure 113/67 113/67 113/67 Pulse Oximetry 99 08/01/20 03:29 08/01/20 03:35 08/01/20 08:50 Temperature 96.9 F 97.8 F Pulse Rate 102 H 102 H 95 Respiratory Rate 18 18 Blood Pressure 102/59 L 102/59 L 116/63 Pulse Oximetry 100 100 08/01/20 08:53 Temperature Pulse Rate 95 Respiratory Rate Blood Pressure 116/63 Pulse Oximetry Body Mass Index 30.7 Labs Results: 07/25/20 20:35 07/25/20 20:35 Imaging Radiology Impressions: ITS Impressions Chest X-Ray 07/26/20 11:31 IMPRESSION: No acute cardiopulmonary process seen. Medications Medications Current Medications Generic Name Dose Route Start Last Admin Trade Name Freq PRN Reason Stop Dose Admin Acetaminophen 650 mg 07/26/20 19:10 08/01/20 08:54 Acetaminophen 325 Mg Tablet PO 650 mg Q6H PRN Administration Headache/Pain Mild Scale (1-3) Al Hydroxide/Mg Hydroxide 30 ml 07/31/20 18:25 Magnesium Hydrox/Alum Hydrox 30 Ml Oral.Susp PO Q4H PRN Heartburn/Nausea Amitriptyline HCl 50 mg 08/01/20 21:00 Amitriptyline Hcl 25 Mg Tablet PO BEDTIME JAMES Atenolol 25 mg 07/26/20 09:00 08/01/20 08:53 Atenolol 25 Mg Tablet PO 25 mg DAILY JAMES Administration Protocol Clonazepam 1 mg 07/26/20 09:00 08/01/20 08:53 Clonazepam 1 Mg Tablet PO 1 mg BID JAMES Administration Clonidine HCl 0.1 mg 07/26/20 21:00 07/31/20 20:49 Clonidine Hcl 0.1 Mg Tablet PO 0.1 mg BEDTIME JAMES Administration Protocol Clonidine HCl 0.1 mg 07/26/20 19:35 08/01/20 03:29 Clonidine Hcl 0.1 Mg Tablet PO 0.1 mg Q4H PRN Administration Opiate Withdrawal Protocol Famotidine 20 mg 07/31/20 18:24 07/31/20 20:50 Famotidine 20 Mg Tablet PO 20 mg BID PRN Administration heartburn Fluticasone Propionate 2 spray 07/26/20 09:00 08/01/20 09:20 Fluticasone Propionate Nasal 16 Gm [place] NOSTRIL-B 2 spray DAILY JAMES Administration Hydroxyzine HCl 25 mg 07/26/20 19:10 08/01/20 03:28 Hydroxyzine Hcl 25 Mg Tablet PO 25 mg BEDTIME PRN Administration Anxiety Magnesium Hydroxide 30 ml 07/26/20 19:10 07/30/20 15:05 Milk Of Magnesia 30 Ml Oral.Susp PO 30 ml DAILY PRN Administration Constipation Methadone HCl 30 mg 07/31/20 09:00 08/01/20 08:52 Methadone Hcl 1 Mg/0.1 Ml Oral.Conc PO 30 mg DAILY JAMES Administration Mirtazapine 30 mg 08/01/20 21:00 Mirtazapine 7.5 Mg Tablet PO BEDTIME JAMES Ondansetron HCl 4 mg 07/28/20 19:58 08/01/20 08:53 Ondansetron Odt 4 Mg Tab.Rapdis TRANSLINGU 4 mg Q6H PRN Administration Nausea Paliperidone Palmitate 156 mg 08/06/20 11:03 Paliperidone Palmitate 156 Mg/Ml Syringe IM 08/06/20 11:04 ONCE ONE Sucralfate 1 gm 07/26/20 09:00 08/01/20 08:53 Sucralfate 1 Gm Tablet PO 1 gm QID JAMES Administration Tamsulosin HCl 0.4 mg 07/26/20 09:00 08/01/20 08:53 Tamsulosin Hcl 0.4 Mg Capsule PO 0.4 mg DAILY JAMES Administration Verapamil HCl 40 mg 07/26/20 09:00 08/01/20 08:53 Verapamil Hcl 40 Mg Tablet PO 40 mg TID JAMES Administration Protocol Allergies Allergies Allergy/AdvReac Type Severity Reaction Status Date / Time trazodone [TRAZODONE] Allergy Severe FACIAL Verified 04/07/20 09:20 SWELLING, swelling cat dander [CATS] Allergy Intermediate FACIAL Verified 04/07/20 09:20 ITCHING doxepin [DOXEPIN] Allergy Intermediate WEIGHT Verified 04/07/20 09:20 GAIN/LEG SWELLING Iodinated Contrast Media Allergy Intermediate ITCHING Verified 04/07/20 09:20 [IV DYE, IODINE CONTAINING CONTRAST ] nitroglycerin [NITROGLYCERIN] Allergy Unknown UNKNOWN Verified 04/07/20 09:20 tramadol [TRAMADOL] Allergy Unknown UNKNOWN, Verified 04/07/20 09:20 dry mouth ibuprofen [From MOTRIN] AdvReac Intermediate GI UPSET Verified 04/07/20 09:20 quetiapine [From SEROQUEL] AdvReac Intermediate FACIAL Verified 04/07/20 09:20 SWELLING aspirin [ASPIRIN] AdvReac Mild Stomach Verified 04/07/20 09:20 Upset Ibuprofen Allergy Unknown stomach Uncoded 04/07/20 09:20 ache IV contrast Allergy Unknown Unknown Uncoded 04/07/20 09:20 Motrin Allergy Unknown stomach Uncoded 04/07/20 09:20 pain Assessment & Plan Assessment & Plan (1) Opioid use disorder: Status: Acute Code(s): F11.99 - Opioid use, unspecified with unspecified opioid-induced disorder Assessment and Plan: * Continue Methadone 50 mg, to be referred to [facility] Methadone clinic * Recovery support team to facilitate intatke at [facility] when discharge date is determined * avoid multiple QT prolonging agents * (2) Psychosis: Qualifiers: Psychosis type: unspecified psychosis type Qualified Code(s): F29 - Unspecified psychosis not due to a substance or known physiological condition Status: Acute Code(s): F29 - Unspecified psychosis not due to a substance or known physiological condition Assessment and Plan: The patient remains with psychotic symptoms, agreed long-acting atypical injection. He has already received Invega Sustenna 234 mg 2 days ago. Greater than 50% of the session was spent on counseling and/or coordination of care Reason for contiued inpatient stay Substantial Risk for: harm to self, harm to others, inability to function and med/psych decompensation
--- NOTE | 2020-08-01 10:38 | PM.EVENT ---
Event Note Date of Service: 08/01/20 Event Note: Addiction follow up: Patient has been taking Methadone 30mg QD Reporting he is tolerating this dose. C/O some nightime sweating, but unclear if this was related to visual and auditory hallucinations he was also reporting were occurring. He denies any nausea, vomiting, lose stools, body aches or restlessness. Plan: -continue at current dose [facility] and collaborating with inpt SW team
--- NOTE | 2020-08-01 13:25 | MHC.SLORD ---
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
[2020-08-01] MEDS: Famotidine 20 MG TABLET PO (14:04)
[2020-08-01] MEDS: Magnesium Hydrox/Alum Hydrox 30 ML ORAL.SUSP PO (19:00)
[2020-08-01] MEDS: Amitriptyline HCl 25 MG TABLET 50 MG PO (20:14)
[2020-08-01] MEDS: Mirtazapine 7.5 MG TABLET 30 MG PO (20:15)
[2020-08-02 05:51] VITALS: BP 108/56; PULSE 68; RESP 18; TEMP 36.6; O2SAT 95
[2020-08-02 07:00] VITALS: BMI 23.4
[2020-08-02 08:33] VITALS: BP 111/63; PULSE 74
[2020-08-02] MEDS: atenoloL 25 MG TABLET PO (08:33)
[2020-08-02] MEDS: Sucralfate 1 GM TABLET PO ×4 (08:34→20:28)
[2020-08-02] MEDS: clonazePAM 1 MG TABLET PO ×2 (08:34→20:29)
[2020-08-02] MEDS: Tamsulosin HCL 0.4 MG CAPSULE PO (08:34)
[2020-08-02] MEDS: VerapamiL HCL 40 MG TABLET PO ×3 (08:34→20:28)
[2020-08-02 08:46] LABS: Estimated Average Glucose 97 mg/dL
[2020-08-02 08:52] LABS: Anion Gap 10 (12-20); Blood Urea Nitrogen 23 mg/dL (9-16); Carbon Dioxide 32 mmol/L (22-29); Chloride 101 mmol/L (96-108); Cholesterol 182 mg/dL; Creatinine Clr Calc Pharmacy 118.5; Estimated Glomerular Filt Rate > 60; Glucose Random 100 mg/dL (60-115); HDL Cholesterol 38 mg/dL; LDL Cholesterol Calculated 110 mg/dl; Potassium 4.5 mmol/L (3.3-5.1); Sodium 138 mmol/L (135-145); Triglycerides 172 mg/dL
--- NOTE | 2020-08-02 09:59 | P.PNPSI_ITS ---
Subjective Subjective Date of Service: 08/02/20 Reason For Visit: SI Subjective Notes: Conditional Voluntary Interim History: The patient remains dysphoric with poor sleep, he continues to complaint of visual hallucinations at night. Slightly better appetite. He has not attended groups, he socializes with only a few [place]ic-speaking peers. Medication Compliance: Yes Side effects from medications: No Attending Groups: No Review of Systems Acute medical concerns: No Medical Review of Systems: unchanged Mental Status Exam Mental Status Exam Patient Appearance: Disheveled (on hospital gowns) Patient Orientation: Person, Place, Time and Situation Level of Consciousness: Awake and Appropriate Patient Behavior: Appropriate and Guarded Mood Description: Withdrawn Affect Description: Constricted Patient Cognition Impaired: No Ability to Follow Directions: Good Speech Pattern: Clear Memory Description: Intact Hallucinations: Auditory and Visual Delusions: Paranoid Ideation Thought Process: Goal Oriented Thought Content: positive for Intact Judgement: Fair Diagnostics Vital Signs (24Hr): Vital Signs - 24 hr 08/01/20 15:19 08/01/20 16:53 08/01/20 18:00 Temperature 97.5 F Pulse Rate 68 68 66 Respiratory Rate 66 H Blood Pressure 93/58 L 93/58 L 96/53 L Pulse Oximetry 99 98 08/01/20 20:14 08/01/20 20:18 08/02/20 05:51 Temperature 97.9 F Pulse Rate 70 70 68 Respiratory Rate 18 Blood Pressure 96/54 L 96/54 L 108/56 L Pulse Oximetry 95 08/02/20 08:33 Temperature Pulse Rate 74 Respiratory Rate Blood Pressure 111/63 Pulse Oximetry Body Mass Index 30.7 Labs Results: 07/25/20 20:35 08/02/20 08:10 Labs: Laboratory Results - last 48 hr 08/02/20 08/02/20 08:10 08:10 Sodium 138 Potassium 4.5 Chloride 101 Carbon Dioxide 32 H Anion Gap 10 L BUN 23 H D Creatinine 0.75 Estim Creat Clear Calc 118.5 Estimated GFR > 60 Random Glucose 100 D Estimat Average Glucose 97 Hemoglobin A1c % 5.0 Calcium 9.0 Triglycerides 172 Cholesterol 182 LDL Cholesterol, Calc 110 HDL Cholesterol 38 Imaging Radiology Impressions: ITS Impressions Chest X-Ray 07/26/20 11:31 IMPRESSION: No acute cardiopulmonary process seen. Medications Medications Current Medications Generic Name Dose Route Start Last Admin Trade Name Freq PRN Reason Stop Dose Admin Acetaminophen 650 mg 07/26/20 19:10 08/01/20 08:54 Acetaminophen 325 Mg Tablet PO 650 mg Q6H PRN Administration Headache/Pain Mild Scale (1-3) Al Hydroxide/Mg Hydroxide 30 ml 07/31/20 18:25 08/01/20 19:00 Magnesium Hydrox/Alum Hydrox 30 Ml Oral.Susp PO 30 ml Q4H PRN Administration Heartburn/Nausea Amitriptyline HCl 75 mg 08/02/20 09:54 Amitriptyline Hcl 25 Mg Tablet PO 08/02/20 09:55 BEDTIME ONE Amitriptyline HCl 100 mg 08/03/20 19:00 Amitriptyline Hcl 50 Mg Tablet PO BEDTIME JAMES Atenolol 25 mg 07/26/20 09:00 08/02/20 08:33 Atenolol 25 Mg Tablet PO 25 mg DAILY JAMES Administration Protocol Clonazepam 1 mg 07/26/20 09:00 08/02/20 08:34 Clonazepam 1 Mg Tablet PO 1 mg BID JAMES Administration Clonidine HCl 0.1 mg 07/26/20 21:00 08/01/20 20:14 Clonidine Hcl 0.1 Mg Tablet PO 0.1 mg BEDTIME JAMES Administration Protocol Clonidine HCl 0.1 mg 07/26/20 19:35 08/01/20 03:29 Clonidine Hcl 0.1 Mg Tablet PO 0.1 mg Q4H PRN Administration Opiate Withdrawal Protocol Famotidine 20 mg 07/31/20 18:24 08/01/20 14:04 Famotidine 20 Mg Tablet PO 20 mg BID PRN Administration heartburn Fluticasone Propionate 2 spray 07/26/20 09:00 08/02/20 08:41 Fluticasone Propionate Nasal 16 Gm [place] NOSTRIL-B Not Given DAILY JAMES Hydroxyzine HCl 25 mg 07/26/20 19:10 08/01/20 03:28 Hydroxyzine Hcl 25 Mg Tablet PO 25 mg BEDTIME PRN Administration Anxiety Magnesium Hydroxide 30 ml 07/26/20 19:10 07/30/20 15:05 Milk Of Magnesia 30 Ml Oral.Susp PO 30 ml DAILY PRN Administration Constipation Methadone HCl 30 mg 07/31/20 09:00 08/02/20 08:33 Methadone Hcl 1 Mg/0.1 Ml Oral.Conc PO 30 mg DAILY JAMES Administration Mirtazapine 30 mg 08/01/20 21:00 08/01/20 20:15 Mirtazapine 7.5 Mg Tablet PO 30 mg BEDTIME JAMES Administration Ondansetron HCl 4 mg 07/28/20 19:58 08/01/20 08:53 Ondansetron Odt 4 Mg Tab.Rapdis TRANSLINGU 4 mg Q6H PRN Administration Nausea Paliperidone Palmitate 156 mg 08/06/20 11:03 Paliperidone Palmitate 156 Mg/Ml Syringe IM 08/06/20 11:04 ONCE ONE Sucralfate 1 gm 07/26/20 09:00 08/02/20 08:34 Sucralfate 1 Gm Tablet PO 1 gm QID JAMES Administration Tamsulosin HCl 0.4 mg 07/26/20 09:00 08/02/20 08:34 Tamsulosin Hcl 0.4 Mg Capsule PO 0.4 mg DAILY JAMES Administration Verapamil HCl 40 mg 07/26/20 09:00 08/02/20 08:34 Verapamil Hcl 40 Mg Tablet PO 40 mg TID JAMES Administration Protocol Zolpidem Tartrate 10 mg 08/02/20 09:56 Zolpidem Tartrate 5 Mg Tablet PO BEDTIME PRN Insomnia Allergies Allergies Allergy/AdvReac Type Severity Reaction Status Date / Time trazodone [TRAZODONE] Allergy Severe FACIAL Verified 04/07/20 09:20 SWELLING, swelling cat dander [CATS] Allergy Intermediate FACIAL Verified 04/07/20 09:20 ITCHING doxepin [DOXEPIN] Allergy Intermediate WEIGHT Verified 04/07/20 09:20 GAIN/LEG SWELLING Iodinated Contrast Media Allergy Intermediate ITCHING Verified 04/07/20 09:20 [IV DYE, IODINE CONTAINING CONTRAST ] nitroglycerin [NITROGLYCERIN] Allergy Unknown UNKNOWN Verified 04/07/20 09:20 tramadol [TRAMADOL] Allergy Unknown UNKNOWN, Verified 04/07/20 09:20 dry mouth ibuprofen [From MOTRIN] AdvReac Intermediate GI UPSET Verified 04/07/20 09:20 quetiapine [From SEROQUEL] AdvReac Intermediate FACIAL Verified 04/07/20 09:20 SWELLING aspirin [ASPIRIN] AdvReac Mild Stomach Verified 04/07/20 09:20 Upset Ibuprofen Allergy Unknown stomach Uncoded 04/07/20 09:20 ache IV contrast Allergy Unknown Unknown Uncoded 04/07/20 09:20 Motrin Allergy Unknown stomach Uncoded 04/07/20 09:20 pain Assessment & Plan Assessment & Plan (1) Opioid use disorder: Status: Acute Code(s): F11.99 - Opioid use, unspecified with unspecified opioid-induced disorder Assessment and Plan: * Continue Methadone 50 mg, to be referred to [facility] Methadone clinic * Recovery support team to facilitate intatke at [facility] when discharge date is determined * avoid multiple QT prolonging agents * (2) Psychosis: Qualifiers: Psychosis type: unspecified psychosis type Qualified Code(s): F29 - Uns pecified psychosis not due to a substance or known physiological condition Status: Acute Code(s): F29 - Unspecified psychosis not due to a substance or known physiological condition Assessment and Plan: The patient remains with psychotic symptoms, agreed long-acting atypical injection. He has already received Invega Sustenna 234 mg and he is scheduled for Invega Sustenna 156 on Thursday. Still with visual hallucinations. No evidence of metabolic syndrome as per [place] (3) Depression with suicidal ideation: Status: Acute Code(s): F32.9 - Major depressive disorder, single episode, unspecified; R45.851 - Suicidal ideations Assessment and Plan: Remains dysphoric with poor sleep. Plan: 1. Titrate Elavil every day 25 mg up to 100 mg po qhs. 2. Elavil level on Thursday. 3. Continue with Remeron 30 mg. Greater than 50% of the session was spent on counseling and/or coordination of care Reason for contiued inpatient stay Substantial Risk for: harm to self, inability to function and rapid decompensation
[2020-08-02 14:30] VITALS: BP 109/65; PULSE 66
[2020-08-02] MEDS: Magnesium Hydrox/Alum Hydrox 30 ML ORAL.SUSP PO (16:33)
[2020-08-02 17:45] VITALS: BP 104/57; PULSE 71; RESP 16; TEMP 36.8; O2SAT 98
[2020-08-02] MEDS: Famotidine 20 MG TABLET PO (18:27)
[2020-08-02 20:28] VITALS: BP 102/60; PULSE 73
[2020-08-02] MEDS: Amitriptyline HCl 25 MG TABLET 75 MG PO (20:28)
[2020-08-02] MEDS: Zolpidem Tartrate 5 MG TABLET PO (20:28)
[2020-08-02] MEDS: Mirtazapine 7.5 MG TABLET 30 MG PO (20:29)
[2020-08-03] MEDS: hydrOXYzine HCL 25 MG TABLET PO (01:21)
[2020-08-03 05:26] VITALS: BP 100/58; PULSE 85; RESP 18; TEMP 36.4; O2SAT 97
[2020-08-03 08:36] VITALS: BP 113/69; PULSE 77
[2020-08-03] MEDS: VerapamiL HCL 40 MG TABLET PO ×2 (08:36→14:44)
[2020-08-03] MEDS: atenoloL 25 MG TABLET PO (08:36)
[2020-08-03] MEDS: clonazePAM 1 MG TABLET PO ×2 (08:36→20:51)
[2020-08-03] MEDS: Tamsulosin HCL 0.4 MG CAPSULE PO (08:36)
[2020-08-03] MEDS: Sucralfate 1 GM TABLET PO ×4 (08:36→20:51)
--- NOTE | 2020-08-03 10:55 | P.PNPSI_ITS ---
Subjective Subjective Date of Service: 08/03/20 Reason For Visit: SI Subjective Notes: Conditional Voluntary Interim History: The patient reported poor sleep even though that we increased Elavil, add Ambien and Remeron was on 30 mg. Still, with psychosis and depres paula Medication Compliance: Yes Side effects from medications: No Attending Groups: No Review of Systems Acute medical concerns: No Medical Review of Systems: unchanged Mental Status Exam Mental Status Exam Patient Appearance: Well Grooomed Patient Orientation: Person, Place, Time and Situation Level of Consciousness: Awake Patient Behavior: Appropriate Mood Description: Calm and Depressed Affect Description: Constricted Patient Cognition Impaired: No Ability to Follow Directions: Good Speech Pattern: Clear Memory Description: Intact Hallucinations: Auditory and Visual Delusions: Paranoid Ideation Thought Process: Goal Oriented Thought Content: positive for Intact Judgement: Fair Diagnostics Vital Signs (24Hr): Vital Signs - 24 hr 08/02/20 14:30 08/02/20 17:45 08/02/20 20:28 Temperature 98.2 F Pulse Rate 66 71 73 Respiratory Rate 16 Blood Pressure 109/65 104/57 L 102/60 Pulse Oximetry 98 08/03/20 05:26 08/03/20 08:36 Temperature 97.6 F Pulse Rate 85 77 Respiratory Rate 18 Blood Pressure 100/58 L 113/69 Pulse Oximetry 97 Body Mass Index 23.4 Labs Results: 07/25/20 20:35 08/02/20 08:10 Labs: Laboratory Results - last 48 hr 08/02/20 08/02/20 08:10 08:10 Sodium 138 Potassium 4.5 Chloride 101 Carbon Dioxide 32 H Anion Gap 10 L BUN 23 H D Creatinine 0.75 Estim Creat Clear Calc 118.5 Estimated GFR > 60 Random Glucose 100 D Estimat Average Glucose 97 Hemoglobin A1c % 5.0 Calcium 9.0 Triglycerides 172 Cholesterol 182 LDL Cholesterol, Calc 110 HDL Cholesterol 38 Imaging Radiology Impressions: ITS Impressions Chest X-Ray 07/26/20 11:31 IMPRESSION: No acute cardiopulmonary process seen. Medications Medications Current Medications Generic Name Dose Route Start Last Admin Trade Name Freq PRN Reason Stop Dose Admin Acetaminophen 650 mg 07/26/20 19:10 08/01/20 08:54 Acetaminophen 325 Mg Tablet PO 650 mg Q6H PRN Administration Headache/Pain Mild Scale (1-3) Al Hydroxide/Mg Hydroxide 30 ml 07/31/20 18:25 08/02/20 16:33 Magnesium Hydrox/Alum Hydrox 30 Ml Oral.Susp PO 30 ml Q4H PRN Administration Heartburn/Nausea Amitriptyline HCl 100 mg 08/03/20 19:00 Amitriptyline Hcl 50 Mg Tablet PO BEDTIME JAMES Atenolol 25 mg 07/26/20 09:00 08/03/20 08:36 Atenolol 25 Mg Tablet PO 25 mg DAILY JAMES Administration Protocol Clonazepam 1 mg 07/26/20 09:00 08/03/20 08:36 Clonazepam 1 Mg Tablet PO 1 mg BID JAMES Administration Clonidine HCl 0.1 mg 07/26/20 21:00 08/02/20 20:31 Clonidine Hcl 0.1 Mg Tablet PO Not Given BEDTIME JAMES Protocol Clonidine HCl 0.1 mg 07/26/20 19:35 08/01/20 03:29 Clonidine Hcl 0.1 Mg Tablet PO 0.1 mg Q4H PRN Administration Opiate Withdrawal Protocol Famotidine 20 mg 07/31/20 18:24 08/02/20 18:27 Famotidine 20 Mg Tablet PO 20 mg BID PRN Administration heartburn Fluticasone Propionate 2 spray 07/26/20 09:00 08/03/20 08:37 Fluticasone Propionate Nasal 16 Gm [place] NOSTRIL-B Not Given DAILY JAMES Hydroxyzine HCl 25 mg 07/26/20 19:10 08/03/20 01:21 Hydroxyzine Hcl 25 Mg Tablet PO 25 mg BEDTIME PRN Administration Anxiety Magnesium Hydroxide 30 ml 07/26/20 19:10 07/30/20 15:05 Milk Of Magnesia 30 Ml Oral.Susp PO 30 ml DAILY PRN Administration Constipation Methadone HCl 30 mg 07/31/20 09:00 08/03/20 08:36 Methadone Hcl 1 Mg/0.1 Ml Oral.Conc PO 30 mg DAILY JAMES Administration Mirtazapine 30 mg 08/01/20 21:00 08/02/20 20:29 Mirtazapine 7.5 Mg Tablet PO 30 mg BEDTIME JAMES Administration Ondansetron HCl 4 mg 07/28/20 19:58 08/01/20 08:53 Ondansetron Odt 4 Mg Tab.Rapdis TRANSLINGU 4 mg Q6H PRN Administration Nausea Paliperidone Palmitate 156 mg 08/06/20 11:03 Paliperidone Palmitate 156 Mg/Ml Syringe IM 08/06/20 11:04 ONCE ONE Sucralfate 1 gm 07/26/20 09:00 08/03/20 08:36 Sucralfate 1 Gm Tablet PO 1 gm QID [facility] Administration Tamsulosin HCl 0.4 mg 07/26/20 09:00 08/03/20 08:36 Tamsulosin Hcl 0.4 Mg Capsule PO 0.4 mg DAILY JAMES Administration Verapamil HCl 40 mg 07/26/20 09:00 08/03/20 08:36 Verapamil Hcl 40 Mg Tablet PO 40 mg TID [facility] Administration Protocol Zolpidem Tartrate 5 mg 08/02/20 09:56 08/02/20 20:28 Zolpidem Tartrate 5 Mg Tablet PO 5 mg BEDTIME PRN Administration Insomnia Allergies Allergies Allergy/AdvReac Type Severity Reaction Status Date / Time trazodone [TRAZODONE] Allergy Severe FACIAL Verified 04/07/20 09:20 SWELLING, swelling cat dander [CATS] Allergy Intermediate FACIAL Verified 04/07/20 09:20 ITCHING doxepin [DOXEPIN] Allergy Intermediate WEIGHT Verified 04/07/20 09:20 GAIN/LEG SWELLING Iodinated Contrast Media Allergy Intermediate ITCHING Verified 04/07/20 09:20 [IV DYE, IODINE CONTAINING CONTRAST ] nitroglycerin [NITROGLYCERIN] Allergy Unknown UNKNOWN Verified 04/07/20 09:20 tramadol [TRAMADOL] Allergy Unknown UNKNOWN, Verified 04/07/20 09:20 dry mouth ibuprofen [From MOTRIN] AdvReac Intermediate GI UPSET Verified 04/07/20 09:20 quetiapine [From SEROQUEL] AdvReac Intermediate FACIAL Verified 04/07/20 09:20 SWELLING aspirin [ASPIRIN] AdvReac Mild Stomach Verified 04/07/20 09:20 Upset Ibuprofen Allergy Unknown stomach Uncoded 04/07/20 09:20 ache IV contrast Allergy Unknown Unknown Uncoded 04/07/20 09:20 Motrin Allergy Unknown stomach Uncoded 04/07/20 09:20 pain Assessment & Plan Assessment & Plan (1) Opioid use disorder: Status: Acute Code(s): F11.99 - Opioid use, unspecified with unspecified opioid-induced disorder Assessment and Plan: * Continue Methadone 50 mg, to be referred to [facility] Methadone clinic * Recovery support team to facilitate intatke at [facility] when discharge date is determined * avoid multiple QT prolonging agents * (2) Psychosis: Qualifiers: Psychosis type: unspecified psychosis type Qualified Code(s): F29 - Unspecified psychosis not due to a substance or known physiological condition Status: Acute Code(s): F29 - Unspecified psychosis not due to a substance or known physiological condition Assessment and Plan: The patient remains with psychotic symptoms, agreed long-acting atypical injection. He has already received Invega Sustenna 234 mg and he is scheduled for Invega Sustenna 156 on Thursday. Still with visual hallucinations. No evidence of metabolic syndrome as per [place] (3) Depression with suicidal ideation: Status: Acute Code(s): F32.9 - Major depressive disorder, single episode, unspecified; R45.851 - Suicidal ideations Assessment and Plan: Remains dysphoric with poor sleep. Plan: 1. Titrate Elavil every day 25 mg up to 100 mg po qhs. 2. Elavil level on Thursday. 3. Continue with Remeron 30 mg. Greater than 50% of the session was spent on counseling and/or coordination of care Reason for contiued inpatient stay Substantial Risk for: harm to self, rapid decompensation and med/psych decompensation
[2020-08-03 14:44] VITALS: BP 107/61; PULSE 67
[2020-08-03] MEDS: Milk of Magnesia 30 ML ORAL.SUSP PO (14:46)
[2020-08-03] MEDS: Amitriptyline HCl 50 MG TABLET 100 MG PO ×2 (18:00→20:52)
[2020-08-03 18:25] VITALS: BP 99/65; PULSE 73; TEMP 36.3
[2020-08-03] MEDS: Mirtazapine 30 MG TABLET PO (20:51)
[2020-08-03] MEDS: Zolpidem Tartrate 5 MG TABLET PO (20:56)
[2020-08-04 02:05] VITALS: BP 96/51; PULSE 88; RESP 18; O2SAT 95
[2020-08-04] MEDS: hydrOXYzine HCL 25 MG TABLET PO (02:06)
[2020-08-04 08:19] VITALS: BP 130/78; PULSE 76
[2020-08-04] MEDS: Tamsulosin HCL 0.4 MG CAPSULE PO (08:19)
[2020-08-04] MEDS: VerapamiL HCL 40 MG TABLET PO (08:19)
[2020-08-04] MEDS: Sucralfate 1 GM TABLET PO ×4 (08:19→20:21)
[2020-08-04] MEDS: clonazePAM 1 MG TABLET PO (08:19)
[2020-08-04] MEDS: atenoloL 25 MG TABLET PO (08:20)
--- NOTE | 2020-08-04 10:45 | P.PNPSI_ITS ---
Subjective Subjective Date of Service: 08/04/20 Reason For Visit: SI Interim History: Chart reviewed; case discussed with team. Vitals reviewed:WNL Pt says he's the same and endorses intermittent AH that say he should harm himself; he otherwise denies SI. Pt reports depression and anxiety and trouble sleeping. He agrees to PO Paliperidone while waiting for TIRADO to become therapeutic. Medication Compliance: Yes Mental Status Exam Mental Status Exam Narrative: Patient Appearance: appropriately groomed Patient Orientation: Person, Place, Time and Situation Level of Consciousness: Awake Patient Behavior: Appropriate Mood Description: Calm and Depressed, anxious Affect Description: Constricted Patient Cognition Impaired: No Ability to Follow Directions: Good Speech Pattern: Clear Memory Description: Intact Hallucinations: AH Delusions: Paranoid Ideation Thought Process: Goal Oriented Thought Content: positive for Intact Judgement: Fair Diagnostics Vital Signs (24Hr): Vital Signs - 24 hr 08/03/20 14:44 08/03/20 18:25 08/04/20 02:05 Temperature 97.3 F Pulse Rate 67 73 88 Respiratory Rate 18 Blood Pressure 107/61 99/65 96/51 L Pulse Oximetry 95 08/04/20 08:19 Temperature Pulse Rate 76 Respiratory Rate Blood Pressure 130/78 Pulse Oximetry Body Mass Index 23.4 Labs Results: 07/25/20 20:35 08/02/20 08:10 Imaging Radiology Impressions: ITS Impressions Chest X-Ray 07/26/20 11:31 IMPRESSION: No acute cardiopulmonary process seen. Medications Medications Current Medications Generic Name Dose Route Start Last Admin Trade Name Freq PRN Reason Stop Dose Admin Acetaminophen 650 mg 07/26/20 19:10 08/01/20 08:54 Acetaminophen 325 Mg Tablet PO 650 mg Q6H PRN Administration Headache/Pain Mild Scale (1-3) Al Hydroxide/Mg Hydroxide 30 ml 07/31/20 18:25 08/02/20 16:33 Magnesium Hydrox/Alum Hydrox 30 Ml Oral.Susp PO 30 ml Q4H PRN Administration Heartburn/Nausea Amitriptyline HCl 100 mg 08/03/20 19:00 08/03/20 20:52 Amitriptyline Hcl 50 Mg Tablet PO 100 mg BEDTIME JAMES Administration Atenolol 25 mg 07/26/20 09:00 08/04/20 08:20 Atenolol 25 Mg Tablet PO 25 mg DAILY JAMES Administration Protocol Clonazepam 1 mg 07/26/20 09:00 08/04/20 08:19 Clonazepam 1 Mg Tablet PO 1 mg BID JAMES Administration Clonidine HCl 0.1 mg 07/26/20 21:00 08/03/20 20:51 Clonidine Hcl 0.1 Mg Tablet PO Not Given BEDTIME JAMES Protocol Clonidine HCl 0.1 mg 07/26/20 19:35 08/01/20 03:29 Clonidine Hcl 0.1 Mg Tablet PO 0.1 mg Q4H PRN Administration Opiate Withdrawal Protocol Famotidine 20 mg 07/31/20 18:24 08/02/20 18:27 Famotidine 20 Mg Tablet PO 20 mg BID PRN Administration heartburn Fluticasone Propionate 2 spray 07/26/20 09:00 08/04/20 08:29 Fluticasone Propionate Nasal 16 Gm [place] NOSTRIL-B Not Given DAILY JAMES Hydroxyzine HCl 25 mg 07/26/20 19:10 08/04/20 02:06 Hydroxyzine Hcl 25 Mg Tablet PO 25 mg BEDTIME PRN Administration Anxiety Magnesium Hydroxide 30 ml 07/26/20 19:10 08/03/20 14:46 Milk Of Magnesia 30 Ml Oral.Susp PO 30 ml DAILY PRN Administration Constipation Methadone HCl 30 mg 07/31/20 09:00 08/04/20 08:20 Methadone Hcl 1 Mg/0.1 Ml Oral.Conc PO 30 mg DAILY JAMES Administration Mirtazapine 30 mg 08/03/20 21:00 08/03/20 20:51 Mirtazapine 30 Mg Tablet PO 30 mg BEDTIME JAMES Administration Ondansetron HCl 4 mg 07/28/20 19:58 08/01/20 08:53 Ondansetron Odt 4 Mg Tab.Rapdis TRANSLINGU 4 mg Q6H PRN Administration Nausea Paliperidone Palmitate 156 mg 08/06/20 11:03 Paliperidone Palmitate 156 Mg/Ml Syringe IM 08/06/20 11:04 ONCE ONE Sucralfate 1 gm 07/26/20 09:00 08/04/20 08:19 Sucralfate 1 Gm Tablet PO 1 gm QID JAMES Administration Tamsulosin HCl 0.4 mg 07/26/20 09:00 08/04/20 08:19 Tamsulosin Hcl 0.4 Mg Capsule PO 0.4 mg DAILY JAMES Administration Verapamil HCl 40 mg 07/26/20 09:00 08/04/20 08:19 Verapamil Hcl 40 Mg Tablet PO 40 mg TID JAMES Administration Protocol Zolpidem Tartrate 5 mg 08/02/20 09:56 08/03/20 20:56 Zolpidem Tartrate 5 Mg Tablet PO 5 mg BEDTIME PRN Administration Insomnia Allergies Allergies Allergy/AdvReac Type Severity Reaction Status Date / Time trazodone [TRAZODONE] Allergy Severe FACIAL Verified 04/07/20 09:20 SWELLING, swelling cat dander [CATS] Allergy Intermediate FACIAL Verified 04/07/20 09:20 ITCHING doxepin [DOXEPIN] Allergy Intermediate WEIGHT Verified 04/07/20 09:20 GAIN/LEG SWELLING Iodinated Contrast Media Allergy Intermediate ITCHING Verified 04/07/20 09:20 [IV DYE, IODINE CONTAINING CONTRAST ] nitroglycerin [NITROGLYCERIN] Allergy Unknown UNKNOWN Verified 04/07/20 09:20 tramadol [TRAMADOL] Allergy Unknown UNKNOWN, Verified 04/07/20 09:20 dry mouth ibuprofen [From MOTRIN] AdvReac Intermediate GI UPSET Verified 04/07/20 09:20 quetiapine [From SEROQUEL] AdvReac Intermediate FACIAL Verified 04/07/20 09:20 SWELLING aspirin [ASPIRIN] AdvReac Mild Stomach Verified 04/07/20 09:20 Upset Ibuprofen Allergy Unknown stomach Uncoded 04/07/20 09:20 ache IV contrast Allergy Unknown Unknown Uncoded 04/07/20 09:20 Motrin Allergy Unknown stomach Uncoded 04/07/20 09:20 pain Assessment & Plan Assessment & Plan (1) Opioid use disorder: Status: Acute Code(s): F11.99 - Opioid use, unspecified with unspecified opioid-induced disorder Assessment and Plan: * Continue Methadone 50 mg, to be referred to [facility] Methadone clinic * Recovery support team to facilitate intatke at [facility] when discharge date is determined * avoid multiple QT prolonging agents * (2) Psychosis: Qualifiers: Psychosis type: unspecified psychosis type Qualified Code(s): F29 - Unspecified psychosis not due to a substance or known physiological condition Status: Acute Code(s): F29 - Unspecified psychosis not due to a substance or known physiological condition Assessment and Plan: F/P continued symptoms of depression, anxiety and AH. 1. will add Paliperidone 3mg daily for continued psychotic symptoms while tommy willson for TIRADO to be effective 2. otherwise, no other changes to tx plan The patient remains with psychotic symptoms, agreed long-acting atypical injection. He has already received Invega Sustenna 234 mg and he is scheduled for Invega Sustenna 156 on Thursday. Still with visual hallucinations. No evidence of metabolic syndrome as per [place] (3) Depression with suicidal ideation: Status: Acute Code(s): F32.9 - Major depressive disorder, single episode, unspecified; R45.851 - Suicidal ideations Assessment and Plan: added PO Palliperidone 3mg daily for now since continued AH Remains dysphoric with poor sleep. Plan: 1. Titrate Elavil every day 25 mg up to 100 mg po qhs. 2. Elavil level on Thursday. 3. Continue with Remeron 30 mg. Greater than 50% of the session was spent on counseling and/or coordination of care Reason for contiued inpatient stay Substantial Risk for: inability to function and med/psych decompensation
[2020-08-04] MEDS: Paliperidone ER 3 MG TAB.ER.24 PO (12:40)
[2020-08-04 14:21] VITALS: BP 108/60; PULSE 81
[2020-08-04 16:42] VITALS: BP 119/62; PULSE 70; TEMP 36.6
[2020-08-04] MEDS: Milk of Magnesia 30 ML ORAL.SUSP PO (16:54)
[2020-08-04] MEDS: Amitriptyline HCl 50 MG TABLET 100 MG PO (20:21)
[2020-08-04] MEDS: Mirtazapine 30 MG TABLET PO (20:22)
[2020-08-04] MEDS: Magnesium Citrate 300 ML SOLUTION PO (21:21)
[2020-08-04] MEDS: Zolpidem Tartrate 5 MG TABLET PO (21:21)
[2020-08-05 01:40] VITALS: BP 134/71; PULSE 119; RESP 20; TEMP 36.8; O2SAT 98
--- NOTE | 2020-08-05 01:59 | P.PNIM_ITS ---
Subjective Subjective Date of Service: 08/05/20 Interval History: MEDICINE CONSULT NOTES: BRIEFLY history:-50-YEAR-OLD MALE WITH A PAST MEDICAL HISTORY OF anxiety, depression, opiate abuse, alcohol abuse, GERD admitted to the psychiatric unit for depression/suicidal ideation. Medicine team was consulted as patient was complaining of constipation, unable to urinate, abdominal discomfort. Patient denies any chest pain palpitations lightheadedness or dizziness. Denies any numbness tingling. Denies any diarrhea. Denies any nausea or vomiting. Denies any burning or frequency. Physical Exam Vital Signs: Vital Signs: Last Vital Signs Temp 98 F 08/04/20 16:42 Pulse 70 08/04/20 16:42 Resp 18 08/04/20 02:05 BP 119/62 08/04/20 16:42 Pulse Ox 95 08/04/20 02:05 Body Mass Index 23.4 Gen: Appears be in no acute distress HEENT: NCAT, Moist mucosa. Pulmonary: Vesicular breath sounds, fair air entry CVS: Normal S1-S2 Abdomen: BS+, Soft, Nontender Extremities: Warm well perfused Neuro: Alert and awake. Objective Data Current Medications Generic Name Dose Route Start Last Admin Trade Name Freq PRN Reason Stop Dose Admin Acetaminophen 650 mg 07/26/20 19:10 08/01/20 08:54 Acetaminophen 325 Mg Tablet PO 650 mg Q6H PRN Administration Headache/Pain Mild Scale (1-3) Al Hydroxide/Mg Hydroxide 30 ml 07/31/20 18:25 08/02/20 16:33 Magnesium Hydrox/Alum Hydrox 30 Ml Oral.Susp PO 30 ml Q4H PRN Administration Heartburn/Nausea Amitriptyline HCl 100 mg 08/03/20 19:00 08/04/20 20:21 Amitriptyline Hcl 50 Mg Tablet PO 100 mg BEDTIME JAMES Administration Atenolol 25 mg 07/26/20 09:00 08/04/20 08:20 Atenolol 25 Mg Tablet PO 25 mg DAILY JAMES Administration Protocol Bisacodyl 10 mg 08/05/20 02:00 Bisacodyl 10 Mg Supp.Rect MO BEDTIME PRN Constipation Clonidine HCl 0.1 mg 07/26/20 21:00 08/04/20 20:22 Clonidine Hcl 0.1 Mg Tablet PO Not Given BEDTIME JAMES Protocol Clonidine HCl 0.1 mg 07/26/20 19:35 08/01/20 03:29 Clonidine Hcl 0.1 Mg Tablet PO 0.1 mg Q4H PRN Administration Opiate Withdrawal Protocol Docusate Sodium 100 mg 08/05/20 09:00 Docusate Sodium 100 Mg Capsule PO BID JAMES Famotidine 20 mg 07/31/20 18:24 08/02/20 18:27 Famotidine 20 Mg Tablet PO 20 mg BID PRN Administration heartburn Fluticasone Propionate 2 spray 07/26/20 09:00 08/04/20 08:29 Fluticasone Propionate Nasal 16 Gm [place] NOSTRIL-B Not Given DAILY JAMES Hydroxyzine HCl 25 mg 07/26/20 19:10 08/04/20 02:06 Hydroxyzine Hcl 25 Mg Tablet PO 25 mg BEDTIME PRN Administration Anxiety Magnesium Hydroxide 30 ml 07/26/20 19:10 08/04/20 16:54 Milk Of Magnesia 30 Ml Oral.Susp PO 30 ml DAILY PRN Administration Constipation Methadone HCl 30 mg 07/31/20 09:00 08/04/20 08:20 Methadone Hcl 1 Mg/0.1 Ml Oral.Conc PO 30 mg DAILY JAMES Administration Mirtazapine 30 mg 08/03/20 21:00 08/04/20 20:22 Mirtazapine 30 Mg Tablet PO 30 mg BEDTIME JAMES Administration Ondansetron HCl 4 mg 07/28/20 19:58 08/01/20 08:53 Ondansetron Odt 4 Mg Tab.Rapdis TRANSLINGU 4 mg Q6H PRN Administration Nausea Paliperidone 3 mg 08/04/20 12:15 08/04/20 12:40 Paliperidone Er 3 Mg Tab.Er.24 PO 3 mg DAILY JAMES Administration Paliperidone Palmitate 156 mg 08/06/20 11:03 Paliperidone Palmitate 156 Mg/Ml Syringe IM 08/06/20 11:04 ONCE ONE Sucralfate 1 gm 07/26/20 09:00 08/04/20 20:21 Sucralfate 1 Gm Tablet PO 1 gm QID JAMES Administration Tamsulosin HCl 0.4 mg 07/26/20 09:00 08/04/20 08:19 Tamsulosin Hcl 0.4 Mg Capsule PO 0.4 mg DAILY JAMES Administration Verapamil HCl 40 mg 07/26/20 09:00 08/04/20 20:22 Verapamil Hcl 40 Mg Tablet PO Not Given TID [facility] Protocol Zolpidem Tartrate 5 mg 08/02/20 09:56 08/04/20 21:21 Zolpidem Tartrate 5 Mg Tablet PO 5 mg BEDTIME PRN Administration Insomnia Labs CBC & Chem 7: 07/25/20 20:35 08/05/20 03:13 Assessment and Plan (1) Constipation by delayed colonic transit: Status: Acute Assessment and Plan: 50-year-old male with a past medical history of GERD, BPH, anxiety, depression, alcohol abuse, opiate abuse admitted to psychiatric unit for depressions as suicidal ideation; medicine team consulted for abdominal discomfort/constipa tion. Abdominal discomfort/constipation: Benign exam. Will obtain CT scan. Will keep the patient on bowel regimen. Patient is on methadone opiate withdrawal- being tapered Difficulty urination: Patient has history of BPH on Flomax. CT scan has been ordered. Patient is also on opiate. bladder scan- 765cc; frequent Bladder scan and Straight cath as needed. ( No indwelling andrade for now given his Depression/SI for now) and urology consult send urinalysis, BMP Rest of the management as per the psychiatric team. Thank you for consult. Please call for any questions.
[2020-08-05 03:38] LABS: Glucose Urine UA NEG (NEG); Leukocyte Esterase Urine NEG (NEG); Nitrite Urine NEG (NEG); PH 8.5 (5.0-8.0); Urine Blood NEG (NEG); Urine Ketones NEG (NEG); Urine Protein NEG (NEG-TRACE)
[2020-08-05 03:39] LABS: Appearance Urine CLEAR; Color Urine YELLOW
[2020-08-05 03:57] LABS: Anion Gap 11 (12-20); Blood Urea Nitrogen 18 mg/dL (9-16); Calcium 8.9 mg/dL (8.4-10.2); Carbon Dioxide 31 mmol/L (22-29); Chloride 100 mmol/L (96-108); Creatinine Clr Calc Pharmacy 102.6; Estimated Glomerular Filt Rate > 60; Glucose Random 142 mg/dL (60-115); Potassium 4.1 mmol/L (3.3-5.1); Sodium 138 mmol/L (135-145)
[2020-08-05 05:32] VITALS: BP 132/77; PULSE 116; RESP 20; TEMP 36.7; O2SAT 98
[2020-08-05] MEDS: bisacodyL 10 MG SUPP.RECT PR (05:47)
[2020-08-05 08:30] VITALS: BP 109/65; PULSE 74
[2020-08-05] MEDS: Paliperidone ER 3 MG TAB.ER.24 PO (08:30)
[2020-08-05] MEDS: Tamsulosin HCL 0.4 MG CAPSULE PO (08:30)
[2020-08-05] MEDS: Docusate Sodium 100 MG CAPSULE PO ×2 (08:30→20:35)
[2020-08-05] MEDS: atenoloL 25 MG TABLET PO (08:30)
[2020-08-05] MEDS: VerapamiL HCL 40 MG TABLET PO ×2 (08:30→14:47)
[2020-08-05] MEDS: Sucralfate 1 GM TABLET PO ×4 (08:30→20:35)
[2020-08-05] MEDS: Magnesium Citrate 300 ML SOLUTION PO (09:23)
[2020-08-05] MEDS: clonazePAM 1 MG TABLET PO ×2 (09:23→20:35)
--- NOTE | 2020-08-05 11:05 | P.PNPSI_ITS ---
Subjective Subjective Date of Service: 08/05/20 Reason For Visit: SI Interim History: reports discomfort from extended bladder and ongoing constipation. Pt continues to need straight cath for urinary retention. Dr. Nunez saw patient, ordered indwelling cath and recs to leave meds as is. Pt continues to complain of depression, anxiety and AH intermittent passive SI Medication Compliance: Yes Mental Status Exam Mental Status Exam Narrative: Patient Appearance: appropriately groomed Patient Orientation: Person, Place, Time and Situation Level of Consciousness: Awake Patient Behavior: Appropriate Mood Description: ~ not good Affect Description: Constricted Patient Cognition Impaired: No Ability to Follow Directions: Good Speech Pattern: Clear Memory Description: Intact Hallucinations: AH Delusions: Paranoid Ideation Thought Process: Goal Oriented Thought Content: passive intermittent SI (no plan, no intention) Judgement: Fair Diagnostics Vital Signs (24Hr): Vital Signs - 24 hr 08/04/20 14:21 08/04/20 16:42 08/05/20 01:40 Temperature 98 F 98.3 F Pulse Rate 81 70 119 H Respiratory Rate 20 Blood Pressure 108/60 119/62 134/71 Pulse Oximetry 98 08/05/20 05:32 08/05/20 08:30 Temperature 98.0 F Pulse Rate 116 H 74 Respiratory Rate 20 Blood Pressure 132/77 109/65 Pulse Oximetry 98 Body Mass Index 23.4 Labs Results: 07/25/20 20:35 08/05/20 03:13 Labs: Laboratory Results - last 48 hr 08/05/20 08/05/20 03:10 03:13 Sodium 138 Potassium 4.1 Chloride 100 Carbon Dioxide 31 H Anion Gap 11 L BUN 18 H Creatinine 0.76 Estim Creat Clear Calc 102.6 Estimated GFR > 60 Random Glucose 142 H D Calcium 8.9 Urine Color YELLOW Urine Appearance CLEAR Urine pH 8.5 H Ur Specific [place] 1.020 Urine Protein NEG Urine Glucose (UA) NEG Urine Ketones NEG Urine Blood NEG Urine Nitrite NEG Ur Leukocyte Esterase NEG Imaging Radiology Impressions: ITS Impressions Chest X-Ray 07/26/20 11:31 IMPRESSION: No acute cardiopulmonary process seen. Abdomen/Pelvis CT 08/05/20 02:15 IMPRESSION: No acute findings of the abdomen or pelvis. There is mild fullness of both collecting systems which may be associated with the distended bladder. No bladder wall thickening. Moderate volume of stool throughout the entirety of the colon. Medications Medications Current Medications Generic Name Dose Route Start Last Admin Trade Name Freq PRN Reason Stop Dose Admin Acetaminophen 650 mg 07/26/20 19:10 08/01/20 08:54 Acetaminophen 325 Mg Tablet PO 650 mg Q6H PRN Administration Headache/Pain Mild Scale (1-3) Al Hydroxide/Mg Hydroxide 30 ml 07/31/20 18:25 08/02/20 16:33 Magnesium Hydrox/Alum Hydrox 30 Ml Oral.Susp PO 30 ml Q4H PRN Administration Heartburn/Nausea Amitriptyline HCl 100 mg 08/03/20 19:00 08/04/20 20:21 Amitriptyline Hcl 50 Mg Tablet PO 100 mg BEDTIME JAMES Administration Atenolol 25 mg 07/26/20 09:00 08/05/20 08:30 Atenolol 25 Mg Tablet PO 25 mg DAILY JAMES Administration Protocol Bisacodyl 10 mg 08/05/20 02:00 08/05/20 05:47 Bisacodyl 10 Mg Supp.Rect IA 10 mg BEDTIME PRN Administration Constipation Clonazepam 1 mg 08/05/20 09:15 08/05/20 09:23 Clonazepam 1 Mg Tablet PO 1 mg BID JAMES Administration Clonidine HCl 0.1 mg 07/26/20 21:00 08/04/20 20:22 Clonidine Hcl 0.1 Mg Tablet PO Not Given BEDTIME JAMES Protocol Clonidine HCl 0.1 mg 07/26/20 19:35 08/01/20 03:29 Clonidine Hcl 0.1 Mg Tablet PO 0.1 mg Q4H PRN Administration Opiate Withdrawal Protocol Docusate Sodium 100 mg 08/05/20 09:00 08/05/20 08:30 Docusate Sodium 100 Mg Capsule PO 100 mg BID JAMES Administration Doxazosin Mesylate 8 mg 08/05/20 21:00 Doxazosin Mesylate 2 Mg Tablet PO BEDTIME JAMES Protocol Famotidine 20 mg 07/31/20 18:24 08/02/20 18:27 Famotidine 20 Mg Tablet PO 20 mg BID PRN Administration heartburn Finasteride 5 mg 08/06/20 09:00 Finasteride 5 Mg Tablet PO DAILY JAMES Fluticasone Propionate 2 spray 07/26/20 09:00 08/05/20 08:31 Fluticasone Propionate Nasal 16 Gm [place] NOSTRIL-B Not Given DAILY JAMSE Hydroxyzine HCl 25 mg 07/26/20 19:10 08/04/20 02:06 Hydroxyzine Hcl 25 Mg Tablet PO 25 mg BEDTIME PRN Administration Anxiety Magnesium Hydroxide 30 ml 07/26/20 19:10 08/04/20 16:54 Milk Of Magnesia 30 Ml Oral.Susp PO 30 ml DAILY PRN Administration Constipation Methadone HCl 30 mg 07/31/20 09:00 08/05/20 08:30 Methadone Hcl 1 Mg/0.1 Ml Oral.Conc PO 30 mg DAILY JAMES Administration Mirtazapine 30 mg 08/03/20 21:00 08/04/20 20:22 Mirtazapine 30 Mg Tablet PO 30 mg BEDTIME JAMES Administration Ondansetron HCl 4 mg 07/28/20 19:58 08/01/20 08:53 Ondansetron Odt 4 Mg Tab.Rapdis TRANSLINGU 4 mg Q6H PRN Administration Nausea Paliperidone 3 mg 08/04/20 12:15 08/05/20 08:30 Paliperidone Er 3 Mg Tab.Er.24 PO 3 mg DAILY JAMES Administration Paliperidone Palmitate 156 mg 08/06/20 11:03 Paliperidone Palmitate 156 Mg/Ml Syringe IM 08/06/20 11:04 ONCE ONE Sodium Biphosphate/Sodium Phosphate 133 ml 08/05/20 10:59 Sodium Phosphate,[place]-Dibasic 133 Ml Enema IA ONCE PRN continued constipation Sucralfate 1 gm 07/26/20 09:00 08/05/20 08:30 Sucralfate 1 Gm Tablet PO 1 gm QID JAMES Administration Tamsulosin HCl 0.4 mg 07/26/20 09:00 08/05/20 08:30 Tamsulosin Hcl 0.4 Mg Capsule PO 0.4 mg DAILY JAMES Administration Verapamil HCl 40 mg 07/26/20 09:00 08/05/20 08:30 Verapamil Hcl 40 Mg Tablet PO 40 mg TID JAMES Administration Protocol Zolpidem Tartrate 5 mg 08/02/20 09:56 08/04/20 21:21 Zolpidem Tartrate 5 Mg Tablet PO 5 mg BEDTIME PRN Administration Insomnia Allergies Allergies Allergy/AdvReac Type Severity Reaction Status Date / Time trazodone [TRAZODONE] Allergy Severe FACIAL Verified 04/07/20 09:20 SWELLING, swelling cat dander [CATS] Allergy Intermediate FACIAL Verified 04/07/20 09:20 ITCHING doxepin [DOXEPIN] Allergy Intermediate WEIGHT Verified 04/07/20 09:20 GAIN/LEG SWELLING Iodinated Contrast Media Allergy Intermediate ITCHING Verified 04/07/20 09:20 [IV DYE, IODINE CONTAINING CONTRAST ] nitroglycerin [NITROGLYCERIN] Allergy Unknown UNKNOWN Verified 04/07/20 09:20 tramadol [TRAMADOL] Allergy Unknown UNKNOWN, Verified 04/07/20 09:20 dry mouth ibuprofen [From MOTRIN] AdvReac Intermediate GI UPSET Verified 04/07/20 09:20 quetiapine [From SEROQUEL] AdvReac Intermediate FACIAL Verified 04/07/20 09:20 SWELLING aspirin [ASPIRIN] AdvReac Mild Stomach Verified 04/07/20 09:20 Upset Ibuprofen Allergy Unknown stomach Uncoded 04/07/20 09:20 ache IV contrast Allergy Unknown Unknown Uncoded 04/07/20 09:20 Motrin Allergy Unknown stomach Uncoded 04/07/20 09:20 pain Assessment & Plan Assessment & Plan (1) Constipation by delayed colonic transit: Status: Acute Code(s): K59.01 - Slow transit constipation Assessment and Plan: 08/05/20: remains with distended bladder and requiring straight cath; Urologist Dr. Nunez assessed and ordering indwelling catheter for now saying regardless of origin, pt's bladder needs rest. Dr. Nunez saw patient told nursing recommends to leave current med regimen as is for now. Patient has hx of urine retention as outpt Possible etiologies: Added Paliperidone 3mg yesterday which coincided with onset urine retention vs. continued constipation vs accumulation of mulltiple medications with urinary retention -Will leave on PO paliperidone for now Urology does not recommend discontinuing any meds at this time. -Will place hold on increase of Invega for now and give Primary team time to assess and discuss with patient trade off of medication benefit vs side-effect going forward -added Fleet Enema for continued constipation Otherwise: 50-year-old male with a past medical history of GERD, BPH, anxiety, depression, alcohol abuse, opiate abuse admitted to psychiatric unit for depressions as suicidal ideation; medicine team consulted for abdominal discomfort/constipation. Abdominal discomfort/constipation: Benign exam. Will obtain CT scan. Will keep the patient on bowel regimen. Patient is on methadone opiate withdrawal- being tapered Difficulty urination: Patient has history of BPH on Flomax. CT scan has been ordered. Patient is also on opiate. bladder scan- 765cc; frequent Bladder scan and Straight cath as needed. urology consult send urinalysis, BMP Rest of the management as per the psychiatric team. Thank you for consult. Please call for any questions. Greater than 50% of the session was spent on counseling and/or coordination of care Reason for contiued inpatient stay Substantial Risk for: med/psych decompensation
[2020-08-05] MEDS: Sodium Phosphate,Mono-Dibasic 133 ML ENEMA PR (11:49)
[2020-08-05 14:47] VITALS: BP 107/56; PULSE 83
[2020-08-05 18:00] VITALS: BP 112/61; PULSE 79; TEMP 36.8
[2020-08-05] MEDS: Mirtazapine 30 MG TABLET PO (20:35)
[2020-08-05] MEDS: Amitriptyline HCl 50 MG TABLET 100 MG PO (20:35)
[2020-08-05 20:37] VITALS: BP 108/59; PULSE 88
[2020-08-06 01:31] VITALS: BP 115/70; PULSE 110
[2020-08-06] MEDS: cloNIDine HCL 0.1 MG TABLET PO (01:31)
[2020-08-06 06:45] VITALS: BP 89/50; PULSE 87; RESP 16; TEMP 36.7; O2SAT 98
--- NOTE | 2020-08-06 08:13 | P.CNUR_ITS ---
History of Present Illness Consult details Consult date: 08/06/20 Narrative: Jerson is a 50-year-old male Admitted to the hospital for psychiatric issues approximately 10 days ago Has been unable to void PVR 750 with straight catheterization Prior history of BPH and has been on Flomax Also associated constipation Recommendation would be for Bess catheter placement with catheter plug Start doxazosin 8 mg and finasteride 5 mg After initial consultation it appears he had a bowel movement and now has only 50 cc residual They can continue with prostate medications and track his PVR to ensure he is not retaining He can be seen in outpatient for further follow-up PMFSH Past Medical History Medical History Anxiety Chest pain Dysphagia GERD (gastroesophageal reflux disease) Weight loss Family History Family History Father HTN (hypertension) Diabetes Mother HTN (hypertension) Stroke Alzheimer disease Heart disease Surgical History Surgical History H/O umbilical hernia repair History of colonoscopy History of cystoscopy Social History Social History Household Members: Friend(s) Housing: Homeless Do you presently have visiting nurse or other home services: No Alcohol intake: current Alcohol intake frequency: 3 or more drinks per day Smoking Status: Current every day smoker Tobacco Type: Cigarette Packs Per Day: 1 Cigarettes Per Day: 20.0 Years Smoked: 9 Smoked in Last 30 Days: Yes Patient Interested in Nicotine Replacement: No Patient Given Instructions on How to Stop Smoking: No (patient stated he does not wish to quit at this time) Second Hand Smoke Exposure: Yes Use of substances other than those prescribed or required for medical reasons: Yes Substance Use Type: Crack/Cocaine Substance Use Frequency: Weekly Last Used Substance: Just Prior to Admission Currently Displaying Signs/Symptoms of Drug Intoxication Withdrawal: No Any prior treatment program specific to substance use: No Have you been hit, kicked, punched, or otherwise hurt by someone within the past year? If so, by whom?: No Do you feel safe in your current relationship?: No Is there a partner from a previous relationship who is making you feel unsafe now?: No Are you made to feel afraid or neglected: No Spiritual Healthcare Practices: none reported Rastafari Healthcare Practices: none reported Cultural Healthcare Practices: none reported Advance Directives: Yes Advance Directives Information Provided: No (did not wish to have information) Advance Directives on File: Yes Advance Directives Date on File: 02/24/20 Do you have thoughts of harming others: None Do you have a plan to hurt others: No Plan Recently lost weight without trying: Yes service: No Current occupational status: disabled Sexual orientation: Straight/Heterosexual Meds Allergies Allergy/AdvReac Type Severity Reaction Status Date / Time trazodone [TRAZODONE] Allergy Severe FACIAL Verified 04/07/20 09:20 SWELLING, swelling cat dander [CATS] Allergy Intermediate FACIAL Verified 04/07/20 09:20 ITCHING doxepin [DOXEPIN] Allergy Intermediate WEIGHT Verified 04/07/20 09:20 GAIN/LEG SWELLING Iodinated Contrast Media Allergy Intermediate ITCHING Verified 04/07/20 09:20 [IV DYE, IODINE CONTAINING CONTRAST ] nitroglycerin [NITROGLYCERIN] Allergy Unknown UNKNOWN Verified 04/07/20 09:20 tramadol [TRAMADOL] Allergy Unknown UNKNOWN, Verified 04/07/20 09:20 dry mouth ibuprofen [From MOTRIN] AdvReac Intermediate GI UPSET Verified 04/07/20 09:20 quetiapine [From SEROQUEL] AdvReac Intermediate FACIAL Verified 04/07/20 09:20 SWELLING aspirin [ASPIRIN] AdvReac Mild Stomach Verified 04/07/20 09:20 Upset Ibuprofen Allergy Unknown stomach Uncoded 04/07/20 09:20 ache IV contrast Allergy Unknown Unknown Uncoded 04/07/20 09:20 Motrin Allergy Unknown stomach Uncoded 04/07/20 09:20 pain Active Medications: Current Medications Generic Name Dose Route Start Last Admin Trade Name Freq PRN Reason Stop Dose Admin Acetaminophen 650 mg 07/26/20 19:10 08/01/20 08:54 Acetaminophen 325 Mg Tablet PO 650 mg Q6H PRN Administration Headache/Pain Mild Scale (1-3) Al Hydroxide/Mg Hydroxide 30 ml 07/31/20 18:25 08/02/20 16:33 Magnesium Hydrox/Alum Hydrox 30 Ml Oral.Susp PO 30 ml Q4H PRN Administration Heartburn/Nausea Amitriptyline HCl 100 mg 08/03/20 19:00 08/05/20 20:35 Amitriptyline Hcl 50 Mg Tablet PO 100 mg BEDTIME JAMES Administration Atenolol 25 mg 07/26/20 09:00 08/05/20 08:30 Atenolol 25 Mg Tablet PO 25 mg DAILY JAMES Administration Protocol Bisacodyl 10 mg 08/05/20 02:00 08/05/20 05:47 Bisacodyl 10 Mg Supp.Rect ID 10 mg BEDTIME PRN Administration Constipation Clonazepam 1 mg 08/05/20 09:15 08/05/20 20:35 Clonazepam 1 Mg Tablet PO 1 mg BID JAMES Administration Clonidine HCl 0.1 mg 07/26/20 21:00 08/05/20 20:38 Clonidine Hcl 0.1 Mg Tablet PO Not Given BEDTIME JAMES Protocol Clonidine HCl 0.1 mg 07/26/20 19:35 08/06/20 01:31 Clonidine Hcl 0.1 Mg Tablet PO 0.1 mg Q4H PRN Administration Opiate Withdrawal Protocol Docusate Sodium 100 mg 08/05/20 09:00 08/05/20 20:35 Docusate Sodium 100 Mg Capsule PO 100 mg BID JAMES Administration Doxazosin Mesylate 8 mg 08/05/20 21:00 08/05/20 20:39 Doxazosin Mesylate 2 Mg Tablet PO Not Given BEDTIME [facility] Protocol Famotidine 20 mg 07/31/20 18:24 08/02/20 18:27 Famotidine 20 Mg Tablet PO 20 mg BID PRN Administration heartburn Finasteride 5 mg 08/06/20 09:00 Finasteride 5 Mg Tablet PO DAILY [facility] Fluticasone Propionate 2 spray 07/26/20 09:00 08/05/20 08:31 Fluticasone Propionate Nasal 16 Gm [place] NOSTRIL-B Not Given DAILY JAMES Hydroxyzine HCl 25 mg 07/26/20 19:10 08/04/20 02:06 Hydroxyzine Hcl 25 Mg Tablet PO 25 mg BEDTIME PRN Administration Anxiety Magnesium Hydroxide 30 ml 07/26/20 19:10 08/04/20 16:54 Milk Of Magnesia 30 Ml Oral.Susp PO 30 ml DAILY PRN Administration Constipation Methadone HCl 30 mg 07/31/20 09:00 08/05/20 08:30 Methadone Hcl 1 Mg/0.1 Ml Oral.Conc PO 30 mg DAILY JAMES Administration Mirtazapine 30 mg 08/03/20 21:00 08/05/20 20:35 Mirtazapine 30 Mg Tablet PO 30 mg BEDTIME JAMES Administration Ondansetron HCl 4 mg 07/28/20 19:58 08/01/20 08:53 Ondansetron Odt 4 Mg Tab.Rapdis TRANSLINGU 4 mg Q6H PRN Administration Nausea Paliperidone 3 mg 08/04/20 12:15 08/05/20 08:30 Paliperidone Er 3 Mg Tab.Er.24 PO 3 mg DAILY JAMES Administration Paliperidone Palmitate 156 mg 08/07/20 11:03 Paliperidone Palmitate 156 Mg/Ml Syringe IM 08/07/20 11:04 ONCE ONE Sodium Biphosphate/Sodium Phosphate 133 ml 08/05/20 10:59 08/05/20 11:49 Sodium Phosphate,[place]-Dibasic 133 Ml Enema ID 133 ml ONCE PRN Administration continued constipation Sucralfate 1 gm 07/26/20 09:00 08/05/20 20:35 Sucralfate 1 Gm Tablet PO 1 gm QID JAMES Administration Verapamil HCl 40 mg 07/26/20 09:00 08/05/20 20:39 Verapamil Hcl 40 Mg Tablet PO Not Given TID [facility] Protocol Zolpidem Tartrate 5 mg 08/02/20 09:56 08/04/20 21:21 Zolpidem Tartrate 5 Mg Tablet PO 5 mg BEDTIME PRN Administration Insomnia Home Medications Medication Instructions Recorded Confirmed Last Taken Type amitriptyline 1 tab PO BEDTIME 07/26/20 07/26/20 Unknown History atenolol 1 tab PO DAILY 07/26/20 07/26/20 Unknown History clonazepam 1 tab PO BID 07/26/20 07/26/20 Unknown History clonidine HCl 1 tab PO BEDTIME 07/26/20 07/26/20 Unknown History divalproex 1 tab PO BID 07/26/20 07/26/20 Unknown History fluticasone propionate 2 spray INTRANASAL DAILY 07/26/20 07/26/20 Unknown History mirtazapine 1 tab PO BEDTIME 07/26/20 07/26/20 Unknown History risperidone 1 tab PO BID 07/26/20 07/26/20 Unknown History sucralfate 1 tab PO QID 07/26/20 07/26/20 Unknown History tamsulosin 1 cap PO DAILY 07/26/20 07/26/20 Unknown History valproic acid (as sodium salt) 10 ml PO BID 07/26/20 07/26/20 Unknown History verapamil 1 tab PO TID 07/26/20 07/26/20 Unknown History zolpidem [Ambien] 10 mg PO BEDTIME PRN 07/26/20 07/26/20 Unknown History Physical Exam Vital Signs: Vital Signs: Last Vital Signs Temp 98.1 F 08/06/20 06:45 Pulse 87 08/06/20 06:45 Resp 16 08/06/20 06:45 BP 89/50 L 08/06/20 06:45 Pulse Ox 98 08/06/20 06:45 Body Mass Index 23.4 Const: General: cooperative, healthy appearing, comfortable and no acute distress Nutritional Appearance: average body habitus Orientation/consciousness: oriented to person, oriented to place and oriented to time Eyes: General: appearance normal, both eyes and all related structures Chest: Chest palpation & inspection: normal inspection of the chest Resp: Effort & Inspection: normal respiratory effort Cardio: Rate: regular rate GI: Inspection: Yes normal to inspection Skin: Hair: normal Neuro: General: oriented to person, oriented to place and oriented to time Extrem: General: Yes normal to inspection Results Labs Result diagrams: 07/25/20 20:35 08/05/20 03:13 Labs: Urine 07/26/20 08/05/20 Range/Units Unknown 03:10 Urine Color YELLOW YELLOW Urine Appearance CLEAR CLEAR Urine pH 6.0 8.5 H (5.0-8.0) Ur Specific [place] >= 1.030 H 1.020 (1.005-1.025) Urine Protein NEG NEG (NEG-TRACE) MG/DL Urine Glucose (UA) NEG NEG (NEG) MG/DL All other labs normal. Assessment and Plan (1) Urinary retention with incomplete bladder emptying: Status: Acute (2) BPH w urinary obs/LUTS: Status: Acute BPH management Start with doxazosin and finasteride Can review as outpatient in 4 weeks
[2020-08-06] MEDS: Fluticasone Propionate Nasal 16 GM SPRAY 2 SPRAY NOSTRIL-B (08:51)
[2020-08-06 08:52] VITALS: BP 112/63; PULSE 100
[2020-08-06] MEDS: Finasteride 5 MG TABLET PO (08:52)
[2020-08-06] MEDS: VerapamiL HCL 40 MG TABLET PO (08:52)
[2020-08-06] MEDS: Docusate Sodium 100 MG CAPSULE PO ×2 (08:52→20:06)
[2020-08-06] MEDS: clonazePAM 1 MG TABLET PO ×2 (08:52→20:06)
[2020-08-06] MEDS: Sucralfate 1 GM TABLET PO ×4 (08:52→20:06)
[2020-08-06] MEDS: Paliperidone ER 3 MG TAB.ER.24 PO (08:52)
[2020-08-06] MEDS: atenoloL 25 MG TABLET PO (08:52)
[2020-08-06] MEDS: Paliperidone Palmitate 234 MG/1.5 ML SYRINGE IM (10:59)
--- NOTE | 2020-08-06 11:10 | P.PNPSI_ITS ---
Subjective Subjective Date of Service: 08/06/20 Reason For Visit: SI Subjective Notes: Conditional Voluntary Interim History: The patient had urinary retention over the weekend. He also was severely constipated and needed a fleet enema. It helped and he was straig ht cath and so far, he is doing well but he looked very dysphoric, he complained of poor sleep and still auditory hallucinations. Bloodwork was done today to see Elavil level, still on process. Medication Compliance: Yes Side effects from medications: No Attending Groups: No Review of Systems Acute medical concerns: Yes Urinary retention, happened before, mostl likely to BPH Medical Review of Systems: unchanged Mental Status Exam Mental Status Exam Patient Appearance: Well Grooomed Patient Orientation: Person, Place, Time and Situation Level of Consciousness: Awake Patient Behavior: Appropriate Mood Description: Depressed Affect Description: Constricted Patient Cognition Impaired: No Ability to Follow Directions: Good Speech Pattern: Clear Memory Description: Intact Hallucinations: Auditory and Visual Delusions: Paranoid Ideation Thought Process: Goal Oriented Thought Content: positive for Circumstantial Depressive Symptoms: Increased Anxiety and Changes in Appetite Judgement: Fair Diagnostics Vital Signs (24Hr): Vital Signs - 24 hr 08/05/20 14:47 08/05/20 18:00 08/05/20 20:37 Temperature 98.2 F Pulse Rate 83 79 88 Respiratory Rate Blood Pressure 107/56 L 112/61 108/59 L Pulse Oximetry 08/06/20 01:31 08/06/20 06:45 08/06/20 08:52 Temperature 98.1 F Pulse Rate 110 H 87 100 Respiratory Rate 16 Blood Pressure 115/70 89/50 L 112/63 Pulse Oximetry 98 Body Mass Index 23.4 Labs Results: 07/25/20 20:35 08/05/20 03:13 Labs: Laboratory Results - last 48 hr 08/05/20 08/05/20 03:10 03:13 Sodium 138 Potassium 4.1 Chloride 100 Carbon Dioxide 31 H Anion Gap 11 L BUN 18 H Creatinine 0.76 Estim Creat Clear Calc 102.6 Estimated GFR > 60 Random Glucose 142 H D Calcium 8.9 Urine Color YELLOW Urine Appearance CLEAR Urine pH 8.5 H Ur Specific [place] 1.020 Urine Protein NEG Urine Glucose (UA) NEG Urine Ketones NEG Urine Blood NEG Urine Nitrite NEG Ur Leukocyte Esterase NEG Imaging Radiology Impressions: ITS Impressions Chest X-Ray 07/26/20 11:31 IMPRESSION: No acute cardiopulmonary process seen. Abdomen/Pelvis CT 08/05/20 02:15 IMPRESSION: No acute findings of the abdomen or pelvis. There is mild fullness of both collecting systems which may be associated with the distended bladder. No bladder wall thickening. Moderate volume of stool throughout the entirety of the colon. Medications Medications Current Medications Generic Name Dose Route Start Last Admin Trade Name Freq PRN Reason Stop Dose Admin Acetaminophen 650 mg 07/26/20 19:10 08/01/20 08:54 Acetaminophen 325 Mg Tablet PO 650 mg Q6H PRN Administration Headache/Pain Mild Scale (1-3) Al Hydroxide/Mg Hydroxide 30 ml 07/31/20 18:25 08/02/20 16:33 Magnesium Hydrox/Alum Hydrox 30 Ml Oral.Susp PO 30 ml Q4H PRN Administration Heartburn/Nausea Amitriptyline HCl 100 mg 08/03/20 19:00 08/05/20 20:35 Amitriptyline Hcl 50 Mg Tablet PO 100 mg BEDTIME JAMES Administration Atenolol 25 mg 07/26/20 09:00 08/06/20 08:52 Atenolol 25 Mg Tablet PO 25 mg DAILY JAMES Administration Protocol Bisacodyl 10 mg 08/05/20 02:00 08/05/20 05:47 Bisacodyl 10 Mg Supp.Rect MA 10 mg BEDTIME PRN Administration Constipation Clonazepam 1 mg 08/05/20 09:15 08/06/20 08:52 Clonazepam 1 Mg Tablet PO 1 mg BID JAMES Administration Clonidine HCl 0.1 mg 07/26/20 21:00 08/05/20 20:38 Clonidine Hcl 0.1 Mg Tablet PO Not Given BEDTIME JAMES Protocol Clonidine HCl 0.1 mg 07/26/20 19:35 08/06/20 01:31 Clonidine Hcl 0.1 Mg Tablet PO 0.1 mg Q4H PRN Administration Opiate Withdrawal Protocol Docusate Sodium 100 mg 08/05/20 09:00 08/06/20 08:52 Docusate Sodium 100 Mg Capsule PO 100 mg BID JAMES Administration Doxazosin Mesylate 8 mg 08/05/20 21:00 08/05/20 20:39 Doxazosin Mesylate 2 Mg Tablet PO Not Given BEDTIME JAMES Protocol Famotidine 20 mg 07/31/20 18:24 08/02/20 18:27 Famotidine 20 Mg Tablet PO 20 mg BID PRN Administration heartburn Finasteride 5 mg 08/06/20 09:00 08/06/20 08:52 Finasteride 5 Mg Tablet PO 5 mg DAILY [facility] Administration Fluticasone Propionate 2 spray 07/26/20 09:00 08/06/20 08:51 Fluticasone Propionate Nasal 16 Gm [place] NOSTRIL-B 2 spray DAILY JAMES Administration Hydroxyzine HCl 25 mg 07/26/20 19:10 08/04/20 02:06 Hydroxyzine Hcl 25 Mg Tablet PO 25 mg BEDTIME PRN Administration Anxiety Magnesium Hydroxide 30 ml 07/26/20 19:10 08/04/20 16:54 Milk Of Magnesia 30 Ml Oral.Susp PO 30 ml DAILY PRN Administration Constipation Methadone HCl 30 mg 07/31/20 09:00 08/06/20 08:52 Methadone Hcl 1 Mg/0.1 Ml Oral.Conc PO 30 mg DAILY JAMES Administration Mirtazapine 30 mg 08/03/20 21:00 08/05/20 20:35 Mirtazapine 30 Mg Tablet PO 30 mg BEDTIME [facility] Administration Ondansetron HCl 4 mg 07/28/20 19:58 08/01/20 08:53 Ondansetron Odt 4 Mg Tab.Rapdis TRANSLINGU 4 mg Q6H PRN Administration Nausea Senna 8.6 mg 08/06/20 21:00 Sennosides 8.6 Mg Tablet PO BEDTIME [facility] Sodium Biphosphate/Sodium Phosphate 133 ml 08/05/20 10:59 08/05/20 11:49 Sodium Phosphate,[place]-Dibasic 133 Ml Enema [place] 133 ml ONCE PRN Administration continued constipation Sucralfate 1 gm 07/26/20 09:00 08/06/20 08:52 Sucralfate 1 Gm Tablet PO 1 gm QID [facility] Administration Verapamil HCl 40 mg 07/26/20 09:00 08/06/20 08:52 Verapamil Hcl 40 Mg Tablet PO 40 mg TID [facility] Administration Protocol Zolpidem Tartrate 5 mg 08/02/20 09:56 08/04/20 21:21 Zolpidem Tartrate 5 Mg Tablet PO 5 mg BEDTIME PRN Administration Insomnia Allergies Allergies Allergy/AdvReac Type Severity Reaction Status Date / Time trazodone [TRAZODONE] Allergy Severe FACIAL Verified 04/07/20 09:20 SWELLING, swelling cat dander [CATS] Allergy Intermediate FACIAL Verified 04/07/20 09:20 ITCHING doxepin [DOXEPIN] Allergy Intermediate WEIGHT Verified 04/07/20 09:20 GAIN/LEG SWELLING Iodinated Contrast Media Allergy Intermediate ITCHING Verified 04/07/20 09:20 [IV DYE, IODINE CONTAINING CONTRAST ] nitroglycerin [NITROGLYCERIN] Allergy Unknown UNKNOWN Verified 04/07/20 09:20 tramadol [TRAMADOL] Allergy Unknown UNKNOWN, Verified 04/07/20 09:20 dry mouth ibuprofen [From MOTRIN] AdvReac Intermediate GI UPSET Verified 04/07/20 09:20 quetiapine [From SEROQUEL] AdvReac Intermediate FACIAL Verified 04/07/20 09:20 SWELLING aspirin [ASPIRIN] AdvReac Mild Stomach Verified 04/07/20 09:20 Upset Ibuprofen Allergy Unknown stomach Uncoded 04/07/20 09:20 ache IV contrast Allergy Unknown Unknown Uncoded 04/07/20 09:20 Motrin Allergy Unknown stomach Uncoded 04/07/20 09:20 pain Assessment & Plan Assessment & Plan (1) Urinary retention with incomplete bladder emptying: Status: Acute Code(s): R33.9 - Retention of urine, unspecified (2) BPH w urinary obs/LUTS: Status: Acute Code(s): N40.1 - Benign prostatic hyperplasia with lower urinary tract symptoms; N13.8 - Other obstructive and reflux uropathy (3) Psychosis: Qualifiers: Psychosis type: unspecified psychosis type Qualified Code(s): F29 - Unspecified psychosis not due to a substance or known physiological condition Status: Acute Code(s): F29 - Unspecified psychosis not due to a substance or known physiological condition (4) Depression with suicidal ideation: Status: Acute Code(s): F32.9 - Major depressive disorder, single episode, unspecified; R45.851 - Suicidal ideations Assessment and Plan: BPH management Start with doxazosin and finasteride Can review as outpatient in 4 weeks Continue Invega Susenna IM 234 mg IM today Greater than 50% of the session was spent on counseling and/or coordination of care Reason for contiued inpatient stay Substantial Risk for: harm to self, inability to function, rapid decompensation and med/psych decompensation
--- NOTE | 2020-08-06 12:05 | MHC.SLORD ---
Speech Language Pathology Order Status: SENIOR DESIGN ENGINEERING SPECIALIST called and spoke with RN. Patient is on REGULAR solids and THIN liquids, pills WHOLE in liquid. Per RN, patient is tolerating without difficulty. Patient previously reported pain and globus sensation when swallowing solids. If no improvement, patient may benefit from inpatient or outpatient MBSS. Further ST intervention is no longer warranted at this level of care. Please re-refer if there are any changes or further concerns.
[2020-08-06] MEDS: Acetaminophen 325 MG TABLET 650 MG PO (15:17)
[2020-08-06 15:21] VITALS: BP 91/54; PULSE 76
[2020-08-06 16:25] VITALS: BP 91/52; PULSE 74; TEMP 36.2
[2020-08-06] MEDS: Mirtazapine 30 MG TABLET PO (20:06)
[2020-08-06] MEDS: Amitriptyline HCl 50 MG TABLET 100 MG PO (20:06)
[2020-08-06] MEDS: Sennosides 8.6 MG TABLET PO (20:06)
[2020-08-07] VITALS (8 sets, daily range): BP systolic 101–131; BP diastolic 58–77; PULSE 77–111; RESP 16–18; TEMP 36.7–37.2; O2SAT 97
[2020-08-07] MEDS: hydrOXYzine HCL 25 MG TABLET PO (00:55)
[2020-08-07] MEDS: Acetaminophen 325 MG TABLET 650 MG PO ×2 (08:46→20:51)
[2020-08-07] MEDS: Finasteride 5 MG TABLET PO (08:46)
[2020-08-07] MEDS: VerapamiL HCL 40 MG TABLET PO ×2 (08:47→20:36)
[2020-08-07] MEDS: atenoloL 25 MG TABLET PO (08:47)
[2020-08-07] MEDS: clonazePAM 1 MG TABLET PO ×2 (08:47→20:48)
[2020-08-07] MEDS: Docusate Sodium 100 MG CAPSULE PO ×2 (08:47→20:40)
[2020-08-07] MEDS: Sucralfate 1 GM TABLET PO ×4 (08:48→20:39)
[2020-08-07] MEDS: Famotidine 20 MG TABLET PO (08:48)
--- NOTE | 2020-08-07 10:41 | P.PNPSI_ITS ---
Subjective Subjective Date of Service: 08/07/20 Reason For Visit: SI Subjective Notes: Conditional Voluntary Interim History: The patient reported mild sedation after the Invega Sustenna injection. No urinary retention as per nursing staff. Still waiting for the r esults of Elavil level. He complaints of poor sleep, even though that he has several hypnotics at hs. Medication Compliance: Yes Side effects from medications: No Attending Groups: No Review of Systems Acute medical concerns: No Medical Review of Systems: unchanged Mental Status Exam Mental Status Exam Patient Appearance: Disheveled Patient Orientation: Person, Place, Time and Situation Level of Consciousness: Awake Patient Behavior: Appropriate Mood Description: Calm Affect Description: Calm Patient Cognition Impaired: No Ability to Follow Directions: Good Speech Pattern: Clear Memory Description: Intact Hallucinations: Auditory Delusions: Paranoid Ideation Thought Process: Goal Oriented Thought Content: positive for Thought Blocking Depressive Symptoms: Increased Anxiety Judgement: Fair Diagnostics Vital Signs (24Hr): Vital Signs - 24 hr 08/06/20 15:21 08/06/20 16:25 08/07/20 06:00 Temperature 97.2 F 98.1 F Pulse Rate 76 74 91 Respiratory Rate 16 Blood Pressure 91/54 L 91/52 L 126/64 Pulse Oximetry 97 08/07/20 08:45 08/07/20 08:47 Temperature 98.9 F Pulse Rate 111 H 111 H Respiratory Rate 18 Blood Pressure 131/77 131/77 Pulse Oximetry 97 Body Mass Index 23.4 Labs Results: 07/25/20 20:35 08/05/20 03:13 Imaging Radiology Impressions: ITS Impressions Chest X-Ray 07/26/20 11:31 IMPRESSION: No acute cardiopulmonary process seen. Abdomen/Pelvis CT 08/05/20 02:15 IMPRESSION: No acute findings of the abdomen or pelvis. There is mild fullness of both collecting systems which may be associated with the distended bladder. No bladder wall thickening. Moderate volume of stool throughout the entirety of the colon. Medications Medications Current Medications Generic Name Dose Route Start Last Admin Trade Name Freq PRN Reason Stop Dose Admin Acetaminophen 650 mg 07/26/20 19:10 08/07/20 08:46 Acetaminophen 325 Mg Tablet PO 650 mg Q6H PRN Administration Headache/Pain Mild Scale (1-3) Al Hydroxide/Mg Hydroxide 30 ml 07/31/20 18:25 08/02/20 16:33 Magnesium Hydrox/Alum Hydrox 30 Ml Oral.Susp PO 30 ml Q4H PRN Administration Heartburn/Nausea Amitriptyline HCl 100 mg 08/03/20 19:00 08/06/20 20:06 Amitriptyline Hcl 50 Mg Tablet PO 100 mg BEDTIME JAMES Administration Atenolol 25 mg 07/26/20 09:00 08/07/20 08:47 Atenolol 25 Mg Tablet PO 25 mg DAILY JAMES Administration Protocol Bisacodyl 10 mg 08/05/20 02:00 08/05/20 05:47 Bisacodyl 10 Mg Supp.Rect [place] 10 mg BEDTIME PRN Administration Constipation Clonazepam 1 mg 08/05/20 09:15 08/07/20 08:47 Clonazepam 1 Mg Tablet PO 1 mg BID JAMES Administration Clonidine HCl 0.1 mg 07/26/20 21:00 08/06/20 20:16 Clonidine Hcl 0.1 Mg Tablet PO Not Given BEDTIME JAMES Protocol Clonidine HCl 0.1 mg 07/26/20 19:35 08/06/20 01:31 Clonidine Hcl 0.1 Mg Tablet PO 0.1 mg Q4H PRN Administration Opiate Withdrawal Protocol Docusate Sodium 100 mg 08/05/20 09:00 08/07/20 08:47 Docusate Sodium 100 Mg Capsule PO 100 mg BID JAMES Administration Doxazosin Mesylate 8 mg 08/05/20 21:00 08/06/20 20:16 Doxazosin Mesylate 2 Mg Tablet PO Not Given BEDTIME JAMES Protocol Famotidine 20 mg 07/31/20 18:24 08/07/20 08:48 Famotidine 20 Mg Tablet PO 20 mg BID PRN Administration heartburn Finasteride 5 mg 08/06/20 09:00 08/07/20 08:46 Finasteride 5 Mg Tablet PO 5 mg DAILY JAMES Administration Fluticasone Propionate 2 spray 07/26/20 09:00 08/06/20 08:51 Fluticasone Propionate Nasal 16 Gm [place] NOSTRIL-B 2 spray DAILY JAMES Administration Hydroxyzine HCl 25 mg 07/26/20 19:10 08/07/20 00:55 Hydroxyzine Hcl 25 Mg Tablet PO 25 mg BEDTIME PRN Administration Anxiety Magnesium Hydroxide 30 ml 07/26/20 19:10 08/04/20 16:54 Milk Of Magnesia 30 Ml Oral.Susp PO 30 ml DAILY PRN Administration Constipation Methadone HCl 30 mg 07/31/20 09:00 08/07/20 08:46 Methadone Hcl 1 Mg/0.1 Ml Oral.Conc PO 30 mg DAILY JAMES Administration Mirtazapine 30 mg 08/03/20 21:00 08/06/20 20:06 Mirtazapine 30 Mg Tablet PO 30 mg BEDTIME JAMES Administration Ondansetron HCl 4 mg 07/28/20 19:58 08/01/20 08:53 Ondansetron Odt 4 Mg Tab.Rapdis TRANSLINGU 4 mg Q6H PRN Administration Nausea Senna 8.6 mg 08/06/20 21:00 08/06/20 20:06 Sennosides 8.6 Mg Tablet PO 8.6 mg BEDTIME JAMES Administration Sodium Biphosphate/Sodium Phosphate 133 ml 08/05/20 10:59 08/05/20 11:49 Sodium Phosphate,[place]-Dibasic 133 Ml Enema [place] 133 ml ONCE PRN Administration continued constipation Sucralfate 1 gm 08/06/20 17:00 08/07/20 08:48 Sucralfate 1 Gm Tablet PO 1 gm QID JAMES Administration Verapamil HCl 40 mg 07/26/20 09:00 08/07/20 08:47 Verapamil Hcl 40 Mg Tablet PO 40 mg TID JAMES Administration Protocol Zolpidem Tartrate 5 mg 08/07/20 10:15 Zolpidem Tartrate 5 Mg Tablet PO BEDTIME PRN Insomnia Allergies Allergies Allergy/AdvReac Type Severity Reaction Status Date / Time trazodone [TRAZODONE] Allergy Severe FACIAL Verified 04/07/20 09:20 SWELLING, swelling cat dander [CATS] Allergy Intermediate FACIAL Verified 04/07/20 09:20 ITCHING doxepin [DOXEPIN] Allergy Intermediate WEIGHT Verified 04/07/20 09:20 GAIN/LEG SWELLING Iodinated Contrast Media Allergy Intermediate ITCHING Verified 04/07/20 09:20 [IV DYE, IODINE CONTAINING CONTRAST ] nitroglycerin [NITROGLYCERIN] Allergy Unknown UNKNOWN Verified 04/07/20 09:20 tramadol [TRAMADOL] Allergy Unknown UNKNOWN, Verified 04/07/20 09:20 dry mouth ibuprofen [From MOTRIN] AdvReac Intermediate GI UPSET Verified 04/07/20 09:20 quetiapine [From SEROQUEL] AdvReac Intermediate FACIAL Verified 04/07/20 09:20 SWELLING aspirin [ASPIRIN] AdvReac Mild Stomach Verified 04/07/20 09:20 Upset Ibuprofen Allergy Unknown stomach Uncoded 04/07/20 09:20 ache IV contrast Allergy Unknown Unknown Uncoded 04/07/20 09:20 Motrin Allergy Unknown stomach Uncoded 04/07/20 09:20 pain Assessment & Plan Assessment & Plan (1) Urinary retention with incomplete bladder emptying: Status: Acute Code(s): R33.9 - Retention of urine, unspecified (2) BPH w urinary obs/LUTS: Status: Acute Code(s): N40.1 - Benign prostatic hyperplasia with lower urinary tract symptoms; N13.8 - Other obstructive and reflux uropathy (3) Psychosis: Qualifiers: Psychosis type: unspecified psychosis type Qualified Code(s): F29 - Unspecified psychosis not due to a substance or known physiological condition Status: Acute Code(s): F29 - Unspecified psychosis not due to a substance or known physiological condition (4) Depression with suicidal ideation: Status: Acute Code(s): F32.9 - Major depressive disorder, single episode, unspecified; R45.851 - [place] icidal ideations Assessment and Plan: BPH management Continue with doxazosin and finasteride Can review as outpatient in 4 weeks F/U Elavil levels Greater than 50% of the session was spent on counseling and/or coordination of care Reason for contiued inpatient stay Substantial Risk for: harm to self, harm to others, rapid decompensation and med/psych decompensation
[2020-08-07] MEDS: cloNIDine HCL 0.1 MG TABLET PO (20:34)
[2020-08-07] MEDS: Mirtazapine 30 MG TABLET PO (20:39)
[2020-08-07] MEDS: Sennosides 8.6 MG TABLET PO (20:39)
[2020-08-07] MEDS: Doxazosin Mesylate 2 MG TABLET 8 MG PO (20:40)
[2020-08-07] MEDS: Amitriptyline HCl 50 MG TABLET 100 MG PO (20:41)
[2020-08-07] MEDS: Zolpidem Tartrate 5 MG TABLET PO (20:51)
[2020-08-08] MEDS: hydrOXYzine HCL 25 MG TABLET PO (01:01)
[2020-08-08 06:00] VITALS: BP 101/57; PULSE 100; RESP 16; TEMP 36.4; O2SAT 98
[2020-08-08] MEDS: Finasteride 5 MG TABLET PO (08:37)
[2020-08-08 08:38] VITALS: BP 118/61; PULSE 107
[2020-08-08] MEDS: Docusate Sodium 100 MG CAPSULE PO ×2 (08:38→20:15)
[2020-08-08] MEDS: Sucralfate 1 GM TABLET PO ×4 (08:38→20:15)
[2020-08-08] MEDS: clonazePAM 1 MG TABLET PO ×2 (08:38→20:13)
[2020-08-08] MEDS: VerapamiL HCL 40 MG TABLET PO ×3 (08:38→20:17)
[2020-08-08] MEDS: atenoloL 25 MG TABLET PO (08:38)
[2020-08-08 14:11] VITALS: BP 110/60; PULSE 86
--- NOTE | 2020-08-08 14:55 | P.PNPSI_ITS ---
Subjective Subjective Date of Service: 08/08/20 Reason For Visit: SI Interim History: The patient reported some improvmenent of auditory hallucinations. Now with a Bess for urinary retention Medication Compliance: Yes Side effects from medications: No Attending Groups: Yes Review of Systems Acute medical concerns: Yes Urinary retention, new consult to Urology Mental Status Exam Mental Status Exam Patient Appearance: Well Grooomed Patient Orientation: Person, Place, Time and Situation Level of Consciousness: Awake Patient Behavior: Appropriate Mood Description: Calm Affect Description: Appropriate Patient Cognition Impaired: No Ability to Follow Directions: Good Speech Pattern: Clear Memory Description: Intact Hallucinations: Auditory Delusions: Paranoid Ideation Perceptual Disturbances: Hallucinations Thought Process: Goal Oriented Thought Content: positive for [place] Judgement: Fair Diagnostics Vital Signs (24Hr): Vital Signs - 24 hr 08/07/20 16:54 08/07/20 17:00 08/07/20 20:34 Temperature 98.8 F Pulse Rate 77 77 100 Respiratory Rate Blood Pressure 103/58 L 103/58 L 101/61 Pulse Oximetry 08/07/20 20:36 08/07/20 20:40 08/08/20 06:00 Temperature 97.6 F Pulse Rate 100 100 100 Respiratory Rate 16 Blood Pressure 101/61 101/61 101/57 L Pulse Oximetry 98 08/08/20 08:38 08/08/20 14:11 Temperature Pulse Rate 107 H 86 Respiratory Rate Blood Pressure 118/61 110/60 Pulse Oximetry Body Mass Index 23.4 Labs Results: 07/25/20 20:35 08/05/20 03:13 Imaging Radiology Impressions: ITS Impressions Chest X-Ray 07/26/20 11:31 IMPRESSION: No acute cardiopulmonary process seen. Abdomen/Pelvis CT 08/05/20 02:15 IMPRESSION: No acute findings of the abdomen or pelvis. There is mild fullness of both collecting systems which may be associated with the distended bladder. No bladder wall thickening. Moderate volume of stool throughout the entirety of the colon. Medications Medications Current Medications Generic Name Dose Route Start Last Admin Trade Name Freq PRN Reason Stop Dose Admin Acetaminophen 650 mg 07/26/20 19:10 08/07/20 20:51 Acetaminophen 325 Mg Tablet PO 650 mg Q6H PRN Administration Headache/Pain Mild Scale (1-3) Al Hydroxide/Mg Hydroxide 30 ml 07/31/20 18:25 08/02/20 16:33 Magnesium Hydrox/Alum Hydrox 30 Ml Oral.Susp PO 30 ml Q4H PRN Administration Heartburn/Nausea Amitriptyline HCl 100 mg 08/03/20 19:00 08/07/20 20:41 Amitriptyline Hcl 50 Mg Tablet PO 100 mg BEDTIME JAMES Administration Atenolol 25 mg 07/26/20 09:00 08/08/20 08:38 Atenolol 25 Mg Tablet PO 25 mg DAILY JAMES Administration Protocol Bisacodyl 10 mg 08/05/20 02:00 08/05/20 05:47 Bisacodyl 10 Mg Supp.Rect [place] 10 mg BEDTIME PRN Administration Constipation Clonazepam 1 mg 08/05/20 09:15 08/08/20 08:38 Clonazepam 1 Mg Tablet PO 1 mg BID JAMES Administration Clonidine HCl 0.1 mg 07/26/20 21:00 08/07/20 20:34 Clonidine Hcl 0.1 Mg Tablet PO 0.1 mg BEDTIME JAMES Administration Protocol Clonidine HCl 0.1 mg 07/26/20 19:35 08/06/20 01:31 Clonidine Hcl 0.1 Mg Tablet PO 0.1 mg Q4H PRN Administration Opiate Withdrawal Protocol Docusate Sodium 100 mg 08/05/20 09:00 08/08/20 08:38 Docusate Sodium 100 Mg Capsule PO 100 mg BID JAMES Administration Doxazosin Mesylate 8 mg 08/05/20 21:00 08/07/20 20:40 Doxazosin Mesylate 2 Mg Tablet PO 8 mg BEDTIME JAMES Administration Protocol Famotidine 20 mg 07/31/20 18:24 08/07/20 08:48 Famotidine 20 Mg Tablet PO 20 mg BID PRN Administration heartburn Finasteride 5 mg 08/06/20 09:00 08/08/20 08:37 Finasteride 5 Mg Tablet PO 5 mg DAILY JAMES Administration Fluticasone Propionate 2 spray 07/26/20 09:00 08/08/20 08:38 Fluticasone Propionate Nasal 16 Gm [place] NOSTRIL-B Not Given DAILY JAMES Hydroxyzine HCl 25 mg 07/26/20 19:10 08/08/20 01:01 Hydroxyzine Hcl 25 Mg Tablet PO 25 mg BEDTIME PRN Administration Anxiety Magnesium Hydroxide 30 ml 07/26/20 19:10 08/04/20 16:54 Milk Of Magnesia 30 Ml Oral.Susp PO 30 ml DAILY PRN Administration Constipation Methadone HCl 30 mg 07/31/20 09:00 08/08/20 08:37 Methadone Hcl 1 Mg/0.1 Ml Oral.Conc PO 30 mg DAILY JAMES Administration Mirtazapine 30 mg 08/03/20 21:00 08/07/20 20:39 Mirtazapine 30 Mg Tablet PO 30 mg BEDTIME JAMES Administration Ondansetron HCl 4 mg 07/28/20 19:58 08/08/20 04:58 Ondansetron Odt 4 Mg Tab.Rapdis TRANSLINGU 4 mg Q6H PRN Administration Nausea Senna 8.6 mg 08/06/20 21:00 08/07/20 20:39 Sennosides 8.6 Mg Tablet PO 8.6 mg BEDTIME JAMES Administration Sodium Biphosphate/Sodium Phosphate 133 ml 08/05/20 10:59 08/05/20 11:49 Sodium Phosphate,[place]-Dibasic 133 Ml Enema [place] 133 ml ONCE PRN Administration continued constipation Sucralfate 1 gm 08/06/20 17:00 08/08/20 14:13 Sucralfate 1 Gm Tablet PO 1 gm QID JAMES Administration Verapamil HCl 40 mg 07/26/20 09:00 08/08/20 14:11 Verapamil Hcl 40 Mg Tablet PO 40 mg TID JAMES Administration Protocol Zolpidem Tartrate 5 mg 08/07/20 10:15 08/07/20 20:51 Zolpidem Tartrate 5 Mg Tablet PO 5 mg BEDTIME PRN Administration Insomnia Allergies Allergies Allergy/AdvReac Type Severity Reaction Status Date / Time trazodone [TRAZODONE] Allergy Severe FACIAL Verified 04/07/20 09:20 SWELLING, swelling cat dander [CATS] Allergy Intermediate FACIAL Verified 04/07/20 09:20 ITCHING doxepin [DOXEPIN] Allergy Intermediate WEIGHT Verified 04/07/20 09:20 GAIN/LEG SWELLING Iodinated Contrast Media Allergy Intermediate ITCHING Verified 04/07/20 09:20 [IV DYE, IODINE CONTAINING CONTRAST ] nitroglycerin [NITROGLYCERIN] Allergy Unknown UNKNOWN Verified 04/07/20 09:20 tramadol [TRAMADOL] Allergy Unknown UNKNOWN, Verified 04/07/20 09:20 dry mouth ibuprofen [From MOTRIN] AdvReac Intermediate GI UPSET Verified 04/07/20 09:20 quetiapine [From SEROQUEL] AdvReac Intermediate FACIAL Verified 04/07/20 09:20 SWELLING aspirin [ASPIRIN] AdvReac Mild Stomach Verified 04/07/20 09:20 Upset Ibuprofen Allergy Unknown stomach Uncoded 04/07/20 09:20 ache IV contrast Allergy Unknown Unknown Uncoded 04/07/20 09:20 Motrin Allergy Unknown stomach Uncoded 04/07/20 09:20 pain Assessment & Plan Assessment & Plan (1) Urinary retention with incomplete bladder emptying: Status: Acute Code(s): R33.9 - Retention of urine, unspecified (2) BPH w urinary obs/LUTS: Status: Acute Code(s): N40.1 - Benign prostatic hyperplasia with lower urinary tract symptoms; N13.8 - Other obstructive and reflux uropathy (3) Psychosis: Qualifiers: Psychosis type: unspecified psychosis type Qualified Code(s): F29 - Unspecified psychosis not due to a substance or known physiological condition Status: Acute Code(s): F29 - Unspecified psychosis not due to a substance or known physiological con dition (4) Depression with suicidal ideation: Status: Acute Code(s): F32.9 - Major depressive disorder, single episode, unspecified; R45.851 - Suicidal ideations Assessment and Plan: BPH management Continue with doxazosin and finasteride Can review as outpatient in 4 weeks F/U Elavil levels Greater than 50% of the session was spent on counseling and/or coordination of care Reason for contiued inpatient stay Substantial Risk for: inability to function, rapid decompensation and med/psych decompensation
[2020-08-08 20:13] VITALS: BP 116/60; PULSE 88
[2020-08-08] MEDS: Doxazosin Mesylate 2 MG TABLET 8 MG PO (20:13)
[2020-08-08] MEDS: Amitriptyline HCl 50 MG TABLET 100 MG PO (20:14)
[2020-08-08 20:16] VITALS: BP 116/60; PULSE 88
[2020-08-08] MEDS: Sennosides 8.6 MG TABLET PO (20:16)
[2020-08-08] MEDS: cloNIDine HCL 0.1 MG TABLET PO (20:16)
[2020-08-08 20:17] VITALS: BP 116/60; PULSE 88; TEMP 36.9
[2020-08-08] MEDS: Mirtazapine 30 MG TABLET PO (20:17)
[2020-08-08] MEDS: Zolpidem Tartrate 5 MG TABLET PO (20:27)
[2020-08-09] MEDS: hydrOXYzine HCL 25 MG TABLET PO (00:16)
[2020-08-09] MEDS: Magnesium Hydrox/Alum Hydrox 30 ML ORAL.SUSP PO (04:04)
[2020-08-09 07:00] VITALS: BMI 24.5
[2020-08-09 07:15] VITALS: BP 105/55; PULSE 75; RESP 16; TEMP 36.7; O2SAT 96
[2020-08-09 08:25] VITALS: BP 112/70; PULSE 80
[2020-08-09] MEDS: atenoloL 25 MG TABLET PO (08:25)
[2020-08-09] MEDS: Docusate Sodium 100 MG CAPSULE PO ×2 (08:25→20:34)
[2020-08-09] MEDS: VerapamiL HCL 40 MG TABLET PO ×2 (08:25→14:51)
[2020-08-09] MEDS: Finasteride 5 MG TABLET PO (08:25)
[2020-08-09] MEDS: Sucralfate 1 GM TABLET PO ×4 (08:26→20:24)
[2020-08-09] MEDS: Famotidine 20 MG TABLET PO (08:26)
[2020-08-09] MEDS: clonazePAM 1 MG TABLET PO ×2 (08:26→20:24)
[2020-08-09] MEDS: Acetaminophen 325 MG TABLET 650 MG PO (10:34)
--- NOTE | 2020-08-09 10:52 | HO.PSYCHPN ---
Subjective Subjective Date of Service: 08/09/20 Reason For Visit: SI Subjective Notes: Conditional Voluntary Interim History: The patient reported auditory hallucinations and mild paranoia. Still with Bess catheter Medication Compliance: Yes Side effects from medications: No Attending Groups: Yes Mental Status Exam Mental Status Exam Patient Appearance: Disheveled Patient Orientation: Person, Place, Time and Situation Level of Consciousness: Awake Patient Behavior: Appropriate and Cooperative Mood Description: Calm Affect Description: Constricted Patient Cognition Impaired: No Ability to Follow Directions: Good Speech Pattern: Clear Memory Description: Intact Hallucinations: Auditory Delusions: Paranoid Ideation Thought Process: Slowed Thinking Thought Content: positive for Poverty of Content Judgement: Fair Diagnostics Vital Signs (24Hr): Vital Signs - 24 hr 08/08/20 14:11 08/08/20 20:13 08/08/20 20:16 Temperature Pulse Rate 86 88 88 Respiratory Rate Blood Pressure 110/60 116/60 116/60 Pulse Oximetry 08/08/20 20:17 08/09/20 07:15 08/09/20 08:25 Temperature 98.4 F 98.1 F Pulse Rate 88 75 80 Respiratory Rate 16 Blood Pressure 116/60 105/55 L 112/70 Pulse Oximetry 96 Body Mass Index 24.5 Labs Results: 07/25/20 20:35 08/05/20 03:13 Imaging Radiology Impressions: ITS Impressions Chest X-Ray 07/26/20 11:31 IMPRESSION: No acute cardiopulmonary process seen. Abdomen/Pelvis CT 08/05/20 02:15 IMPRESSION: No acute findings of the abdomen or pelvis. There is mild fullness of both collecting systems which may be associated with the distended bladder. No bladder wall thickening. Moderate volume of stool throughout the entirety of the colon. Medications Medications Current Medications Generic Name Dose Route Start Last Admin Trade Name Freq PRN Reason Stop Dose Admin Acetaminophen 650 mg 07/26/20 19:10 08/09/20 10:34 Acetaminophen 325 Mg Tablet PO 650 mg Q6H PRN Administration Headache/Pain Mild Scale (1-3) Al Hydroxide/Mg Hydroxide 30 ml 07/31/20 18:25 08/09/20 04:04 Magnesium Hydrox/Alum Hydrox 30 Ml Oral.Susp PO 30 ml Q4H PRN Administration Heartburn/Nausea Amitriptyline HCl 100 mg 08/03/20 19:00 08/08/20 20:14 Amitriptyline Hcl 50 Mg Tablet PO 100 mg BEDTIME JAMES Administration Atenolol 25 mg 07/26/20 09:00 08/09/20 08:25 Atenolol 25 Mg Tablet PO 25 mg DAILY JAMES Administration Protocol Bisacodyl 10 mg 08/05/20 02:00 08/05/20 05:47 Bisacodyl 10 Mg Supp.Rect [place] 10 mg BEDTIME PRN Administration Constipation Clonazepam 1 mg 08/05/20 09:15 08/09/20 08:26 Clonazepam 1 Mg Tablet PO 1 mg BID JAMES Administration Clonidine HCl 0.1 mg 07/26/20 21:00 08/08/20 20:16 Clonidine Hcl 0.1 Mg Tablet PO 0.1 mg BEDTIME JAMES Administration Protocol Clonidine HCl 0.1 mg 07/26/20 19:35 08/06/20 01:31 Clonidine Hcl 0.1 Mg Tablet PO 0.1 mg Q4H PRN Administration Opiate Withdrawal Protocol Docusate Sodium 100 mg 08/05/20 09:00 08/09/20 08:25 Docusate Sodium 100 Mg Capsule PO 100 mg BID JAMES Administration Doxazosin Mesylate 8 mg 08/05/20 21:00 08/08/20 20:13 Doxazosin Mesylate 2 Mg Tablet PO 8 mg BEDTIME JAMES Administration Protocol Famotidine 20 mg 07/31/20 18:24 08/09/20 08:26 Famotidine 20 Mg Tablet PO 20 mg BID PRN Administration heartburn Finasteride 5 mg 08/06/20 09:00 08/09/20 08:25 Finasteride 5 Mg Tablet PO 5 mg DAILY JAMES Administration Fluticasone Propionate 2 spray 07/26/20 09:00 08/09/20 08:28 Fluticasone Propionate Nasal 16 Gm [place] NOSTRIL-B Not Given DAILY JAMES Hydroxyzine HCl 25 mg 07/26/20 19:10 08/09/20 00:16 Hydroxyzine Hcl 25 Mg Tablet PO 25 mg BEDTIME PRN Administration Anxiety Magnesium Hydroxide 30 ml 07/26/20 19:10 08/04/20 16:54 Milk Of Magnesia 30 Ml Oral.Susp PO 30 ml DAILY PRN Administration Constipation Methadone HCl 30 mg 07/31/20 09:00 08/09/20 08:25 Methadone Hcl 1 Mg/0.1 Ml Oral.Conc PO 30 mg DAILY JAMES Administration Mirtazapine 30 mg 08/03/20 21:00 08/08/20 20:17 Mirtazapine 30 Mg Tablet PO 30 mg BEDTIME JAMES Administration Ondansetron HCl 4 mg 07/28/20 19:58 08/08/20 04:58 Ondansetron Odt 4 Mg Tab.Rapdis TRANSLINGU 4 mg Q6H PRN Administration Nausea Senna 8.6 mg 08/06/20 21:00 08/08/20 20:16 Sennosides 8.6 Mg Tablet PO 8.6 mg BEDTIME JAMES Administration Sodium Biphosphate/Sodium Phosphate 133 ml 08/05/20 10:59 08/05/20 11:49 Sodium Phosphate,[place]-Dibasic 133 Ml Enema [place] 133 ml ONCE PRN Administration continued constipation Sucralfate 1 gm 08/06/20 17:00 08/09/20 08:26 Sucralfate 1 Gm Tablet PO 1 gm QID JAMES Administration Verapamil HCl 40 mg 07/26/20 09:00 08/09/20 08:25 Verapamil Hcl 40 Mg Tablet PO 40 mg TID JAMES Administration Protocol Zolpidem Tartrate 5 mg 08/07/20 10:15 08/08/20 20:27 Zolpidem Tartrate 5 Mg Tablet PO 5 mg BEDTIME PRN Administration Insomnia Allergies Allergies Allergy/AdvReac Type Severity Reaction Status Date / Time trazodone [TRAZODONE] Allergy Severe FACIAL Verified 04/07/20 09:20 SWELLING, swelling cat dander [CATS] Allergy Intermediate FACIAL Verified 04/07/20 09:20 ITCHING doxepin [DOXEPIN] Allergy Intermediate WEIGHT Verified 04/07/20 09:20 GAIN/LEG SWELLING Iodinated Contrast Media Allergy Intermediate ITCHING Verified 04/07/20 09:20 [IV DYE, IODINE CONTAINING CONTRAST ] nitroglycerin [NITROGLYCERIN] Allergy Unknown UNKNOWN Verified 04/07/20 09:20 tramadol [TRAMADOL] Allergy Unknown UNKNOWN, Verified 04/07/20 09:20 dry mouth ibuprofen [From MOTRIN] AdvReac Intermediate GI UPSET Verified 04/07/20 09:20 quetiapine [From SEROQUEL] AdvReac Intermediate FACIAL Verified 04/07/20 09:20 SWELLING aspirin [ASPIRIN] AdvReac Mild Stomach Verified 04/07/20 09:20 Upset Ibuprofen Allergy Unknown stomach Uncoded 04/07/20 09:20 ache IV contrast Allergy Unknown Unknown Uncoded 04/07/20 09:20 Motrin Allergy Unknown stomach Uncoded 04/07/20 09:20 pain Assessment & Plan Assessment & Plan (1) Urinary retention with incomplete bladder emptying: Status: Acute Code(s): R33.9 - Retention of urine, unspecified (2) BPH w urinary obs/LUTS: Status: Acute Code(s): N40.1 - Benign prostatic hyperplasia with lower urinary tract symptoms; N13.8 - Other obstructive and reflux uropathy (3) Psychosis: Qualifiers: Psychosis type: unspecified psychosis type Qualified Code(s): F29 - Unspecified psychosis not due to a substance or known physiological condition Status: Acute Code(s): F29 - Unspecified psychosis not due to a substance or known physiological condition (4) Depression with suicidal ideation: Status: Acute Code(s): F32.9 - Major depressive disorder, single episode, unspecified; R45.851 - Suicidal ideations Assessment and Plan: BPH management Continue with doxazosin and finasteride Can review as outpatient in 4 weeks F/U Elavil levels Greater than 50% of the session was spent on counseling and/or coordination of care Reason for contiued inpatient stay Substantial Risk for: harm to self, rapid decompensation and med/psych decompensation
--- NOTE | 2020-08-09 11:00 | MHC.RECOVRN ---
T/w spoke with Sridevi from team to reiterate that recovery team was following pt and is waiting to fax [facility] referral information until a d/c date is set. It was also reiterated that pt would need to walk in to the OTP on a Mon Wed or Fri so pt would need to be dc on a or Th for a smooth transition. Will continue to follow.
[2020-08-09 18:00] VITALS: TEMP 36.7
[2020-08-09] MEDS: Zolpidem Tartrate 5 MG TABLET PO (20:23)
[2020-08-09] MEDS: Mirtazapine 30 MG TABLET PO (20:28)
[2020-08-09] MEDS: Amitriptyline HCl 50 MG TABLET 100 MG PO (20:33)
[2020-08-09] MEDS: Sennosides 8.6 MG TABLET PO (20:33)
[2020-08-09 20:35] VITALS: BP 111/53; PULSE 78
[2020-08-09 20:39] VITALS: BP 111/53; PULSE 78
[2020-08-09] MEDS: Doxazosin Mesylate 2 MG TABLET 8 MG PO (20:39)
[2020-08-09 20:40] VITALS: BP 111/53; PULSE 78
[2020-08-10 01:27] VITALS: BP 106/55; PULSE 112
[2020-08-10] MEDS: hydrOXYzine HCL 25 MG TABLET PO (01:27)
[2020-08-10] MEDS: cloNIDine HCL 0.1 MG TABLET PO (01:27)
[2020-08-10 05:20] VITALS: BP 121/68; PULSE 73; RESP 18; TEMP 36.8; O2SAT 98
[2020-08-10] MEDS: Famotidine 20 MG TABLET PO (05:21)
--- NOTE | 2020-08-10 08:45 | P.PNUR_ITS ---
Subjective Subjective Date of Service: 08/10/20 Interval history: Patient reviewed Still with Bess catheter That planning on having him go to a transition care Would like to remove Bess Voiding trial should have been performed 06:00 this morning Stay on alpha blockers and finasteride Physical Exam Vital Signs: Vital Signs: Last Vital Signs Temp 98.2 F 08/10/20 05:20 Pulse 73 08/10/20 05:20 Resp 18 08/10/20 05:20 BP 121/68 08/10/20 05:20 Pulse Ox 98 08/10/20 05:20 Body Mass Index 24.5 Const: General: cooperative, healthy appearing, comfortable and no acute distress Nutritional Appearance: average body habitus Orientation/c onsciousness: oriented to person, oriented to place and oriented to time Eyes: General: appearance normal, both eyes and all related structures Chest: Chest palpation & inspection: normal inspection of the chest Resp: Effort & Inspection: normal respiratory effort Cardio: Rate: regular rate GI: Inspection: Yes normal to inspection Skin: Hair: normal Neuro: General: oriented to person, oriented to place and oriented to time Extrem: General: Yes normal to inspection Urology Results Labs CBC & Chem 7: 07/25/20 20:35 08/05/20 03:13 Progress Note: A&P Assessment and plan (1) Urinary retention with incomplete bladder emptying: Status: Acute Assessment and Plan: See in 2 weeks for review and PVR as outpatient Fall Risk Details Current Medications: Current Medications Generic Name Dose Route Start Last Admin Trade Name Freq PRN Reason Stop Dose Admin Acetaminophen 650 mg 07/26/20 19:10 08/09/20 10:34 Acetaminophen 325 Mg Tablet PO 650 mg Q6H PRN Administration Headache/Pain Mild Scale (1-3) Al Hydroxide/Mg Hydroxide 30 ml 07/31/20 18:25 08/09/20 04:04 Magnesium Hydrox/Alum Hydrox 30 Ml Oral.Susp PO 30 ml Q4H PRN Administration Heartburn/Nausea Amitriptyline HCl 100 mg 08/03/20 19:00 08/09/20 20:33 Amitriptyline Hcl 50 Mg Tablet PO 100 mg BEDTIME JAMES Administration Atenolol 25 mg 07/26/20 09:00 08/09/20 08:25 Atenolol 25 Mg Tablet PO 25 mg DAILY JAMES Administration Protocol Bisacodyl 10 mg 08/05/20 02:00 08/05/20 05:47 Bisacodyl 10 Mg Supp.Rect [place] 10 mg BEDTIME PRN Administration Constipation Clonazepam 1 mg 08/05/20 09:15 08/09/20 20:24 Clonazepam 1 Mg Tablet PO 1 mg BID JAMES Administration Clonidine HCl 0.1 mg 07/26/20 21:00 08/09/20 20:35 Clonidine Hcl 0.1 Mg Tablet PO Not Given BEDTIME JAMES Protocol Clonidine HCl 0.1 mg 07/26/20 19:35 08/10/20 01:27 Clonidine Hcl 0.1 Mg Tablet PO 0.1 mg Q4H PRN Administration Opiate Withdrawal Protocol Docusate Sodium 100 mg 08/05/20 09:00 08/09/20 20:34 Docusate Sodium 100 Mg Capsule PO 100 mg BID JAMES Administration Doxazosin Mesylate 8 mg 08/05/20 21:00 08/09/20 20:39 Doxazosin Mesylate 2 Mg Tablet PO 8 mg BEDTIME JAMES Administration Protocol Famotidine 20 mg 07/31/20 18:24 08/10/20 05:21 Famotidine 20 Mg Tablet PO 20 mg BID PRN Administration heartburn Finasteride 5 mg 08/06/20 09:00 08/09/20 08:25 Finasteride 5 Mg Tablet PO 5 mg DAILY JAMES Administration Fluticasone Propionate 2 spray 07/26/20 09:00 08/09/20 08:28 Fluticasone Propionate Nasal 16 Gm [place] NOSTRIL-B Not Given DAILY JAMES Hydroxyzine HCl 25 mg 07/26/20 19:10 08/10/20 01:27 Hydroxyzine Hcl 25 Mg Tablet PO 25 mg BEDTIME PRN Administration Anxiety Magnesium Hydroxide 30 ml 07/26/20 19:10 08/04/20 16:54 Milk Of Magnesia 30 Ml Oral.Susp PO 30 ml DAILY PRN Administration Constipation Methadone HCl 30 mg 07/31/20 09:00 08/09/20 08:25 Methadone Hcl 1 Mg/0.1 Ml Oral.Conc PO 30 mg DAILY JAMES Administration Mirtazapine 30 mg 08/03/20 21:00 08/09/20 20:28 Mirtazapine 30 Mg Tablet PO 30 mg BEDTIME JAMES Administration Ondansetron HCl 4 mg 07/28/20 19:58 08/08/20 04:58 Ondansetron Odt 4 Mg Tab.Rapdis TRANSLINGU 4 mg Q6H PRN Administration Nausea Senna 8.6 mg 08/06/20 21:00 08/09/20 20:33 Sennosides 8.6 Mg Tablet PO 8.6 mg BEDTIME JAMES Administration Sodium Biphosphate/Sodium Phosphate 133 ml 08/05/20 10:59 08/05/20 11:49 Sodium Phosphate,[place]-Dibasic 133 Ml Enema [place] 133 ml ONCE PRN Administration continued constipation Sucralfate 1 gm 08/06/20 17:00 08/09/20 20:24 Sucralfate 1 Gm Tablet PO 1 gm QID JAMES Administration Verapamil HCl 40 mg 07/26/20 09:00 08/09/20 20:40 Verapamil Hcl 40 Mg Tablet PO Not Given TID [facility] Protocol Zolpidem Tartrate 5 mg 08/07/20 10:15 08/09/20 20:23 Zolpidem Tartrate 5 Mg Tablet PO 5 mg BEDTIME PRN Administration Insomnia Time Spent With Patient Time: Total time spent is greater than 50% in coordination of care (as documented) at patient's floor/unit and/or counseling patient: Time with patient: less than 15 minutes
[2020-08-10 08:58] VITALS: BP 111/64; PULSE 75
[2020-08-10] MEDS: Sucralfate 1 GM TABLET PO ×4 (08:58→20:47)
[2020-08-10] MEDS: atenoloL 25 MG TABLET PO (08:58)
[2020-08-10] MEDS: clonazePAM 1 MG TABLET PO ×2 (08:59→20:46)
[2020-08-10] MEDS: VerapamiL HCL 40 MG TABLET PO ×2 (08:59→14:47)
[2020-08-10] MEDS: Finasteride 5 MG TABLET PO (08:59)
[2020-08-10] MEDS: Docusate Sodium 100 MG CAPSULE PO ×2 (08:59→20:46)
--- NOTE | 2020-08-10 09:57 | HO.PSYCHPN ---
Subjective Subjective Date of Service: 08/10/20 Reason For Visit: SI Subjective Notes: Conditional Voluntary Interim History: The patient reported auditory hallucinations and sporadic visual hallucinations at night. [facility] would be willing to add a typical antipsychotic and he agreed. Also, since he has anxiety and chronic pain, and historically, he did well on Gabapentin, he agreed to add it too. Today, they removed the Bess and we will assess if he would need further care due to urinary retention. Still depressed, waiting for Elavil levels. Medication Compliance: Yes Side effects from medications: No Attending Groups: Yes Review of Systems Acute medical concerns: No Medical Review of Systems: unchanged Mental Status Exam Mental Status Exam Patient Appearance: Unkempt Patient Orientation: Person, Place, Time and Situation Level of Consciousness: Awake Patient Behavior: Appropriate Mood Description: Calm Affect Description: Constricted Patient Cognition Impaired: No Ability to Follow Directions: Good Speech Pattern: Clear Memory Description: Intact Hallucinations: Auditory and Visual Delusions: Paranoid Ideation Thought Process: Distracted and Slowed Thinking Thought Content: positive for Thought Blocking Abnormal Motor Activity Signs and Symptoms: Tremors Judgement: Fair Diagnostics Vital Signs (24Hr): Vital Signs - 24 hr 08/09/20 18:00 08/09/20 20:35 08/09/20 20:39 Temperature 98.0 F Pulse Rate 78 78 Respiratory Rate Blood Pressure 111/53 L 111/53 L Pulse Oximetry 08/09/20 20:40 08/10/20 01:27 08/10/20 05:20 Temperature 98.2 F Pulse Rate 78 112 H 73 Respiratory Rate 18 Blood Pressure 111/53 L 106/55 L 121/68 Pulse Oximetry 98 08/10/20 08:58 Temperature Pulse Rate 75 Respiratory Rate Blood Pressure 111/64 Pulse Oximetry Body Mass Index 24.5 Labs Results: 07/25/20 20:35 08/05/20 03:13 Imaging Radiology Impressions: ITS Impressions Chest X-Ray 07/26/20 11:31 IMPRESSION: No acute cardiopulmonary process seen. Abdomen/Pelvis CT 08/05/20 02:15 IMPRESSION: No acute findings of the abdomen or pelvis. There is mild fullness of both collecting systems which may be associated with the distended bladder. No bladder wall thickening. Moderate volume of stool throughout the entirety of the colon. Medications Medications Current Medications Generic Name Dose Route Start Last Admin Trade Name Freq PRN Reason Stop Dose Admin Acetaminophen 650 mg 07/26/20 19:10 08/09/20 10:34 Acetaminophen 325 Mg Tablet PO 650 mg Q6H PRN Administration Headache/Pain Mild Scale (1-3) Al Hydroxide/Mg Hydroxide 30 ml 07/31/20 18:25 08/09/20 04:04 Magnesium Hydrox/Alum Hydrox 30 Ml Oral.Susp PO 30 ml Q4H PRN Administration Heartburn/Nausea Amitriptyline HCl 100 mg 08/03/20 19:00 08/09/20 20:33 Amitriptyline Hcl 50 Mg Tablet PO 100 mg BEDTIME JAMES Administration Atenolol 25 mg 07/26/20 09:00 08/10/20 08:58 Atenolol 25 Mg Tablet PO 25 mg DAILY JAMES Administration Protocol Bisacodyl 10 mg 08/05/20 02:00 08/05/20 05:47 Bisacodyl 10 Mg Supp.Rect [place] 10 mg BEDTIME PRN Administration Constipation Clonazepam 1 mg 08/05/20 09:15 08/10/20 08:59 Clonazepam 1 Mg Tablet PO 1 mg BID JAMES Administration Clonidine HCl 0.1 mg 07/26/20 21:00 08/09/20 20:35 Clonidine Hcl 0.1 Mg Tablet PO Not Given BEDTIME JAMES Protocol Clonidine HCl 0.1 mg 07/26/20 19:35 08/10/20 01:27 Clonidine Hcl 0.1 Mg Tablet PO 0.1 mg Q4H PRN Administration Opiate Withdrawal Protocol Docusate Sodium 100 mg 08/05/20 09:00 08/10/20 08:59 Docusate Sodium 100 Mg Capsule PO 100 mg BID JAMES Administration Doxazosin Mesylate 8 mg 08/05/20 21:00 08/09/20 20:39 Doxazosin Mesylate 2 Mg Tablet PO 8 mg BEDTIME JAMES Administration Protocol Famotidine 20 mg 07/31/20 18:24 08/10/20 05:21 Famotidine 20 Mg Tablet PO 20 mg BID PRN Administration heartburn Finasteride 5 mg 08/06/20 09:00 08/10/20 08:59 Finasteride 5 Mg Tablet PO 5 mg DAILY JAMES Administration Fluticasone Propionate 2 spray 07/26/20 09:00 08/10/20 09:02 Fluticasone Propionate Nasal 16 Gm [place] NOSTRIL-B Not Given DAILY JAMES Hydroxyzine HCl 25 mg 07/26/20 19:10 08/10/20 01:27 Hydroxyzine Hcl 25 Mg Tablet PO 25 mg BEDTIME PRN Administration Anxiety Magnesium Hydroxide 30 ml 07/26/20 19:10 08/04/20 16:54 Milk Of Magnesia 30 Ml Oral.Susp PO 30 ml DAILY PRN Administration Constipation Methadone HCl 30 mg 07/31/20 09:00 08/10/20 09:00 Methadone Hcl 1 Mg/0.1 Ml Oral.Conc PO 30 mg DAILY [facility] Administration Mirtazapine 30 mg 08/03/20 21:00 08/09/20 20:28 Mirtazapine 30 Mg Tablet PO 30 mg BEDTIME JAMES Administration Ondansetron HCl 4 mg 07/28/20 19:58 08/08/20 04:58 Ondansetron Odt 4 Mg Tab.Rapdis TRANSLINGU 4 mg Q6H PRN Administration Nausea Senna 8.6 mg 08/06/20 21:00 08/09/20 20:33 Sennosides 8.6 Mg Tablet PO 8.6 mg BEDTIME [facility] Administration Sodium Biphosphate/Sodium Phosphate 133 ml 08/05/20 10:59 08/05/20 11:49 Sodium Phosphate,[place]-Dibasic 133 Ml Enema [place] 133 ml ONCE PRN Administration continued constipation Sucralfate 1 gm 08/06/20 17:00 08/10/20 08:58 Sucralfate 1 Gm Tablet PO 1 gm QID [facility] Administration Verapamil HCl 40 mg 07/26/20 09:00 08/10/20 08:59 Verapamil Hcl 40 Mg Tablet PO 40 mg TID [facility] Administration Protocol Zolpidem Tartrate 5 mg 08/07/20 10:15 08/09/20 20:23 Zolpidem Tartrate 5 Mg Tablet PO 5 mg BEDTIME PRN Administration Insomnia Allergies Allergies Allergy/AdvReac Type Severity Reaction Status Date / Time trazodone [TRAZODONE] Allergy Severe FACIAL Verified 04/07/20 09:20 SWELLING, swelling cat dander [CATS] Allergy Intermediate FACIAL Verified 04/07/20 09:20 ITCHING doxepin [DOXEPIN] Allergy Intermediate WEIGHT Verified 04/07/20 09:20 GAIN/LEG SWELLING Iodinated Contrast Media Allergy Intermediate ITCHING Verified 04/07/20 09:20 [IV DYE, IODINE CONTAINING CONTRAST ] nitroglycerin [NITROGLYCERIN] Allergy Unknown UNKNOWN Verified 04/07/20 09:20 tramadol [TRAMADOL] Allergy Unknown UNKNOWN, Verified 04/07/20 09:20 dry mouth ibuprofen [From MOTRIN] AdvReac Intermediate GI UPSET Verified 04/07/20 09:20 quetiapine [From SEROQUEL] AdvReac Intermediate FACIAL Verified 04/07/20 09:20 SWELLING aspirin [ASPIRIN] AdvReac Mild Stomach Verified 04/07/20 09:20 Upset Ibuprofen Allergy Unknown stomach Uncoded 04/07/20 09:20 ache IV contrast Allergy Unknown Unknown Uncoded 04/07/20 09:20 Motrin Allergy Unknown stomach Uncoded 04/07/20 09:20 pain Assessment & Plan Assessment & Plan (1) Urinary retention with incomplete bladder emptying: Status: Acute Code(s): R33.9 - Retention of urine, unspecified (2) Psychosis: Qualifiers: Psychosis type: unspecified psychosis type Qualified Code(s): F29 - Unspecified psychosis not due to a substance or known physiological condition Status: Acute Code(s): F29 - Unspecified psychosis not due to a substance or known physiological condition (3) Opioid use disorder: Status: Acute Code(s): F11.99 - Opioid use, unspecified with unspecified opioid-induced disorder (4) Depression with suicidal ideation: Status: Acute Code(s): F32.9 - Major depressive disorder, single episode, unspecified; R45.851 - Suicidal ideations Assessment and Plan: Add Haldol 2 mg po bid Add Gabapentin 300 mg po tid. Keep same antidepressants and other medications. F/U Elavil levels F/U urinary retention over the weekend Greater than 50% of the session was spent on counseling and/or coordination of care Reason for contiued inpatient stay Substantial Risk for: harm to self, inability to function, rapid decompensation and med/psych decompensation
[2020-08-10] MEDS: Gabapentin 300 MG CAPSULE PO ×3 (10:43→20:47)
[2020-08-10] MEDS: HaloperidoL 1 MG TABLET 2 MG PO ×2 (10:43→20:47)
[2020-08-10 14:47] VITALS: BP 120/74; PULSE 99
[2020-08-10 19:15] VITALS: BP 103/60; PULSE 85; TEMP 36.7
[2020-08-10] MEDS: Mirtazapine 30 MG TABLET PO (20:47)
[2020-08-10] MEDS: Amitriptyline HCl 50 MG TABLET 100 MG PO (20:47)
[2020-08-10] MEDS: Sennosides 8.6 MG TABLET PO (20:47)
[2020-08-10 21:32] LABS: Amitriptyline, Serum 88 mcg/L; Nortriptyline, Serum 45 mcg/L; Total (Ami+Nor) 133 mcg/L (100-250)
[2020-08-11 06:00] VITALS: BP 130/74; PULSE 79; RESP 18; TEMP 36.2; O2SAT 98
--- NOTE | 2020-08-11 08:50 | P.PNPSI_ITS ---
Subjective Subjective Date of Service: 08/11/20 Reason For Visit: SI Interim History: Chart reviewed; case discussed with team. Vitals reviewed: wnl pt reports he's a little overall better, but emphasizes a little. He reports continued depression and AVH that remains bothersome. Pt says he just started on Haldol and agrees to wait a few more days before increasing dose. He denies chandrakant e-effects. Pt is sleeping better however and says he's now able to urinate on his own, albeit with discomfort. Pt also reports pain that he says is in his groin and radiates to his back, both sides. focused exam shows costovertebral tenderness b/l Will get UA able to urinate; has not needed straight cath Medication Compliance: Yes Attending Groups: Yes Mental Status Exam Mental Status Exam Narrative: Appearance: hospital gown; adequate hygiene Patient Orientation: Person, Place, Time and Situation Level of Consciousness: Awake Patient Behavior: Appropriate Mood Description: Calm Affect Description: Constricted Patient Cognition Impaired: No Ability to Follow Directions: Good Speech Pattern: Clear Memory Description: Intact Hallucinations: AH Delusions: none expressed; hx of Paranoid Ideation Thought Process: Distracted and Slowed Thinking Thought Content: on treatment; no SI Abnormal Motor Activity Signs and Symptoms: Tremors Judgement: Fair Diagnostics Vital Signs (24Hr): Vital Signs - 24 hr 08/10/20 08:58 08/10/20 14:47 08/10/20 19:15 Temperature 98.1 F Pulse Rate 75 99 85 Respiratory Rate Blood Pressure 111/64 120/74 103/60 Pulse Oximetry 08/11/20 06:00 Temperature 97.2 F Pulse Rate 79 Respiratory Rate 18 Blood Pressure 130/74 Pulse Oximetry 98 Body Mass Index 24.5 Labs Results: 07/25/20 20:35 08/05/20 03:13 Labs: Laboratory Results - last 48 hr 08/06/20 07:36 Amitriptyline 88 Amitriptyline&Nortrip 133 Nortriptyline 45 Imaging Radiology Impressions: ITS Impressions Chest X-Ray 07/26/20 11:31 IMPRESSION: No acute cardiopulmonary process seen. Abdomen/Pelvis CT 08/05/20 02:15 IMPRESSION: No acute findings of the abdomen or pelvis. There is mild fullness of both collecting systems which may be associated with the distended bladder. No bladder wall thickening. Moderate volume of stool throughout the entirety of the colon. Medications Medications Current Medications Generic Name Dose Route Start Last Admin Trade Name Freq PRN Reason Stop Dose Admin Acetaminophen 650 mg 07/26/20 19:10 08/09/20 10:34 Acetaminophen 325 Mg Tablet PO 650 mg Q6H PRN Administration Headache/Pain Mild Scale (1-3) Al Hydroxide/Mg Hydroxide 30 ml 07/31/20 18:25 08/09/20 04:04 Magnesium Hydrox/Alum Hydrox 30 Ml Oral.Susp PO 30 ml Q4H PRN Administration Heartburn/Nausea Amitriptyline HCl 100 mg 08/03/20 19:00 08/10/20 20:47 Amitriptyline Hcl 50 Mg Tablet PO 100 mg BEDTIME JAMES Administration Atenolol 25 mg 07/26/20 09:00 08/10/20 08:58 Atenolol 25 Mg Tablet PO 25 mg DAILY JAMES Administration Protocol Bisacodyl 10 mg 08/05/20 02:00 08/05/20 05:47 Bisacodyl 10 Mg Supp.Rect [place] 10 mg BEDTIME PRN Administration Constipation Clonazepam 1 mg 08/05/20 09:15 08/10/20 20:46 Clonazepam 1 Mg Tablet PO 1 mg BID JAMES Administration Clonidine HCl 0.1 mg 07/26/20 21:00 08/10/20 20:51 Clonidine Hcl 0.1 Mg Tablet PO Not Given BEDTIME JAMES Protocol Clonidine HCl 0.1 mg 07/26/20 19:35 08/10/20 01:27 Clonidine Hcl 0.1 Mg Tablet PO 0.1 mg Q4H PRN Administration Opiate Withdrawal Protocol Docusate Sodium 100 mg 08/05/20 09:00 08/10/20 20:46 Docusate Sodium 100 Mg Capsule PO 100 mg BID JAMES Administration Doxazosin Mesylate 8 mg 08/05/20 21:00 08/10/20 20:51 Doxazosin Mesylate 2 Mg Tablet PO Not Given BEDTIME JAMES Protocol Famotidine 20 mg 07/31/20 18:24 08/10/20 05:21 Famotidine 20 Mg Tablet PO 20 mg BID PRN Administration heartburn Finasteride 5 mg 08/06/20 09:00 08/10/20 08:59 Finasteride 5 Mg Tablet PO 5 mg DAILY JAMES Administration Fluticasone Propionate 2 spray 07/26/20 09:00 08/10/20 09:02 Fluticasone Propionate Nasal 16 Gm [place] NOSTRIL-B Not Given DAILY JAMES Gabapentin 300 mg 08/10/20 15:00 08/10/20 20:47 Gabapentin 300 Mg Capsule PO 300 mg TID [facility] Administration Haloperidol 2 mg 08/10/20 21:00 08/10/20 20:47 Haloperidol 1 Mg Tablet PO 2 mg BID JAMES Administration Hydroxyzine HCl 25 mg 07/26/20 19:10 08/10/20 01:27 Hydroxyzine Hcl 25 Mg Tablet PO 25 mg BEDTIME PRN Administration Anxiety Magnesium Hydroxide 30 ml 07/26/20 19:10 08/04/20 16:54 Milk Of Magnesia 30 Ml Oral.Susp PO 30 ml DAILY PRN Administration Constipation Methadone HCl 30 mg 07/31/20 09:00 08/10/20 09:00 Methadone Hcl 1 Mg/0.1 Ml Oral.Conc PO 30 mg DAILY JAMES Administration Mirtazapine 30 mg 08/03/20 21:00 08/10/20 20:47 Mirtazapine 30 Mg Tablet PO 30 mg BEDTIME [facility] Administration Ondansetron HCl 4 mg 07/28/20 19:58 08/08/20 04:58 Ondansetron Odt 4 Mg Tab.Rapdis TRANSLINGU 4 mg Q6H PRN Administration Nausea Senna 8.6 mg 08/06/20 21:00 08/10/20 20:47 Sennosides 8.6 Mg Tablet PO 8.6 mg BEDTIME JAMES Administration Sodium Biphosphate/Sodium Phosphate 133 ml 08/05/20 10:59 08/05/20 11:49 Sodium Phosphate,[place]-Dibasic 133 Ml Enema [place] 133 ml ONCE PRN Administration continued constipation Sucralfate 1 gm 08/06/20 17:00 08/10/20 20:47 Sucralfate 1 Gm Tablet PO 1 gm QID [facility] Administration Verapamil HCl 40 mg 07/26/20 09:00 08/10/20 20:51 Verapamil Hcl 40 Mg Tablet PO Not Given TID [facility] Protocol Zolpidem Tartrate 5 mg 08/07/20 10:15 08/09/20 20:23 Zolpidem Tartrate 5 Mg Tablet PO 5 mg BEDTIME PRN Administration Insomnia Allergies Allergies Allergy/AdvReac Type Severity Reaction Status Date / Time trazodone [TRAZODONE] Allergy Severe FACIAL Verified 04/07/20 09:20 SWELLING, swelling cat dander [CATS] Allergy Intermediate FACIAL Verified 04/07/20 09:20 ITCHING doxepin [DOXEPIN] Allergy Intermediate WEIGHT Verified 04/07/20 09:20 GAIN/LEG SWELLING Iodinated Contrast Media Allergy Intermediate ITCHING Verified 04/07/20 09:20 [IV DYE, IODINE CONTAINING CONTRAST ] nitroglycerin [NITROGLYCERIN] Allergy Unknown UNKNOWN Verified 04/07/20 09:20 tramadol [TRAMADOL] Allergy Unknown UNKNOWN, Verified 04/07/20 09:20 dry mouth ibuprofen [From MOTRIN] AdvReac Intermediate GI UPSET Verified 04/07/20 09:20 quetiapine [From SEROQUEL] AdvReac Intermediate FACIAL Verified 04/07/20 09:20 SWELLING aspirin [ASPIRIN] AdvReac Mild Stomach Verified 04/07/20 09:20 Upset Ibuprofen Allergy Unknown stomach Uncoded 04/07/20 09:20 ache IV contrast Allergy Unknown Unknown Uncoded 04/07/20 09:20 Motrin Allergy Unknown stomach Uncoded 04/07/20 09:20 pain Assessment & Plan Assessment & Plan (1) Urinary retention with incomplete bladder emptying: Status: Acute Code(s): R33.9 - Retention of urine, unspecified (2) Psychosis: Qualifiers: Psychosis type: unspecified psychosis type Qualified Code(s): F29 - Unspecified psychosis not due to a substance or known physiological condition Status: Acute Code(s): F29 - Unspecified psychosis not due to a substance or known physiological condition (3) Opioid use disorder: Status: Acute Code(s): F11.99 - Opioid use, unspecified with unspecified opioid-induced disorder (4) Depression with suicidal ideation: Status: Acute Code(s): F32.9 - Major depressive disorder, single episode, unspecified; R45.851 - Suicidal ideations Assessment and Plan: F/P pt stable, though still depressed and with AVH recently started on Haldol. Will continue on current regimen for now. Add Haldol 2 mg po bid Add Gabapentin 300 mg po tid. Keep same antidepressants and other medications. F/U Elavil levels F/U urinary retention over the weekend Greater than 50% of the session was spent on counseling and/or coordination of care Reason for contiued inpatient stay Substantial Risk for: rapid decompensation
[2020-08-11 09:04] VITALS: BP 120/63; PULSE 83
[2020-08-11] MEDS: atenoloL 25 MG TABLET PO (09:04)
[2020-08-11] MEDS: VerapamiL HCL 40 MG TABLET PO (09:04)
[2020-08-11] MEDS: HaloperidoL 1 MG TABLET 2 MG PO ×2 (09:04→21:58)
[2020-08-11] MEDS: Docusate Sodium 100 MG CAPSULE PO ×2 (09:05→22:04)
[2020-08-11] MEDS: Gabapentin 300 MG CAPSULE PO ×3 (09:05→22:02)
[2020-08-11] MEDS: Finasteride 5 MG TABLET PO (09:05)
[2020-08-11] MEDS: Sucralfate 1 GM TABLET PO ×4 (09:05→21:58)
[2020-08-11] MEDS: clonazePAM 1 MG TABLET PO ×2 (09:05→22:02)
[2020-08-11] MEDS: Fluticasone Propionate Nasal 16 GM SPRAY 2 SPRAY NOSTRIL-B (09:06)
[2020-08-11 12:13] LABS: Appearance Urine CLEAR; Color Urine YELLOW; Glucose Urine UA NEG (NEG); Leukocyte Esterase Urine NEG (NEG); Nitrite Urine NEG (NEG); Specific Gravity - Urine 1.015 (1.005-1.025); Urine Blood NEG (NEG); Urine Ketones NEG (NEG); Urine Protein NEG (NEG-TRACE)
[2020-08-11 14:04] VITALS: BP 94/58; PULSE 78
[2020-08-11 18:00] VITALS: BP 116/66; PULSE 80; TEMP 35.9; O2SAT 98
[2020-08-11] MEDS: Sennosides 8.6 MG TABLET PO (22:00)
[2020-08-11] MEDS: Amitriptyline HCl 50 MG TABLET 100 MG PO (22:02)
[2020-08-11 22:03] VITALS: BP 114/57; PULSE 81
[2020-08-11] MEDS: Doxazosin Mesylate 2 MG TABLET 8 MG PO (22:03)
[2020-08-11] MEDS: Zolpidem Tartrate 5 MG TABLET PO (22:04)
[2020-08-11] MEDS: Mirtazapine 30 MG TABLET PO (22:05)
[2020-08-12] VITALS (7 sets, daily range): BP systolic 96–117; BP diastolic 54–62; PULSE 76–84; RESP 16; TEMP 36.3; O2SAT 95
[2020-08-12] MEDS: hydrOXYzine HCL 25 MG TABLET PO (00:14)
[2020-08-12] MEDS: Docusate Sodium 100 MG CAPSULE PO ×2 (08:08→20:58)
[2020-08-12] MEDS: atenoloL 25 MG TABLET PO (08:08)
[2020-08-12] MEDS: clonazePAM 1 MG TABLET PO ×2 (08:08→19:11)
[2020-08-12] MEDS: Sucralfate 1 GM TABLET PO ×4 (08:08→21:02)
[2020-08-12] MEDS: Fluticasone Propionate Nasal 16 GM SPRAY 2 SPRAY NOSTRIL-B (08:08)
[2020-08-12] MEDS: HaloperidoL 1 MG TABLET 2 MG PO (08:08)
[2020-08-12] MEDS: Gabapentin 300 MG CAPSULE PO ×3 (08:09→19:11)
[2020-08-12] MEDS: Finasteride 5 MG TABLET PO (08:09)
[2020-08-12] MEDS: VerapamiL HCL 40 MG TABLET PO ×2 (08:09→20:58)
--- NOTE | 2020-08-12 11:12 | HO.PSYCHPN ---
Subjective Subjective Date of Service: 08/12/20 Reason For Visit: SI Interim History: Chart reviewed; case discussed with team. Vitals reviewed: wnl Pt reports AH continue and are worst at night saying he was up at midnight dealing with them; depression remains though no SI. Pt agrees to increase Haldol dose at HS to 3mg to see if there is improvement. He reports he's urinating on his own; there is a burning sensation however. Bowling Alley Mechanic discussed how this is likely due to recent cathaterization but if it does not resolve in a few days to tell primary provider, to which pt understood and agrees to do. UA on 08/11/20 unremarkable. Mental Status Exam Mental Status Exam Narrative: Appearance: hospital gown; adequate hygiene Patient Orientation: Person, Place, Time and Situation Level of Consciousness: Awake Patient Behavior: Appropriate Mood Description: anxious Affect Description: congruent Patient Cognition Impaired: No Ability to Follow Directions: Good Speech Pattern: Clear Memory Description: Intact Hallucinations: AH Delusions: none expressed; hx of Paranoid Ideation Thought Process: Distracted and Slowed Thinking Thought Content: on treatment; no SI Abnormal Motor Activity Signs and Symptoms: Tremors Judgement: Fair Diagnostics Vital Signs (24Hr): Vital Signs - 24 hr 08/11/20 14:04 08/11/20 18:00 08/11/20 22:03 Temperature 96.6 F L Pulse Rate 78 80 81 Respiratory Rate Blood Pressure 94/58 L 116/66 114/57 L Pulse Oximetry 98 08/12/20 06:00 08/12/20 08:08 08/12/20 08:09 Temperature 97.4 F Pulse Rate 76 84 84 Respiratory Rate 16 Blood Pressure 111/56 L 117/62 117/62 Pulse Oximetry 95 Body Mass Index 24.5 Labs Results: 07/25/20 20:35 08/05/20 03:13 Labs: Laboratory Results - last 48 hr 08/06/20 08/11/20 07:36 11:30 Urine Color YELLOW Urine Appearance CLEAR Urine pH 8.0 Ur Specific [place] 1.015 Urine Protein NEG Urine Glucose (UA) NEG Urine Ketones NEG Urine Blood NEG Urine Nitrite NEG Ur Leukocyte Esterase NEG Amitriptyline 88 Amitriptyline&Nortrip 133 Nortriptyline 45 Imaging Radiology Impressions: ITS Impressions Chest X-Ray 07/26/20 11:31 IMPRESSION: No acute cardiopulmonary process seen. Abdomen/Pelvis CT 08/05/20 02:15 IMPRESSION: No acute findings of the abdomen or pelvis. There is mild fullness of both collecting systems which may be associated with the distended bladder. No bladder wall thickening. Moderate volume of stool throughout the entirety of the colon. Medications Medications Current Medications Generic Name Dose Route Start Last Admin Trade Name Freq PRN Reason Stop Dose Admin Acetaminophen 650 mg 07/26/20 19:10 08/09/20 10:34 Acetaminophen 325 Mg Tablet PO 650 mg Q6H PRN Administration Headache/Pain Mild Scale (1-3) Al Hydroxide/Mg Hydroxide 30 ml 07/31/20 18:25 08/09/20 04:04 Magnesium Hydrox/Alum Hydrox 30 Ml Oral.Susp PO 30 ml Q4H PRN Administration Heartburn/Nausea Amitriptyline HCl 100 mg 08/03/20 19:00 08/11/20 22:02 Amitriptyline Hcl 50 Mg Tablet PO 100 mg BEDTIME JAMES Administration Atenolol 25 mg 07/26/20 09:00 08/12/20 08:08 Atenolol 25 Mg Tablet PO 25 mg DAILY JAMES Administration Protocol Bisacodyl 10 mg 08/05/20 02:00 08/05/20 05:47 Bisacodyl 10 Mg Supp.Rect [place] 10 mg BEDTIME PRN Administration Constipation Clonazepam 1 mg 08/05/20 09:15 08/12/20 08:08 Clonazepam 1 Mg Tablet PO 1 mg BID JAMES Administration Clonidine HCl 0.1 mg 07/26/20 21:00 08/11/20 22:15 Clonidine Hcl 0.1 Mg Tablet PO Not Given BEDTIME JAMES Protocol Clonidine HCl 0.1 mg 07/26/20 19:35 08/10/20 01:27 Clonidine Hcl 0.1 Mg Tablet PO 0.1 mg Q4H PRN Administration Opiate Withdrawal Protocol Docusate Sodium 100 mg 08/05/20 09:00 08/12/20 08:08 Docusate Sodium 100 Mg Capsule PO 100 mg BID JAMES Administration Doxazosin Mesylate 8 mg 08/05/20 21:00 08/11/20 22:03 Doxazosin Mesylate 2 Mg Tablet PO 8 mg BEDTIME JAMES Administration Protocol Famotidine 20 mg 07/31/20 18:24 08/10/20 05:21 Famotidine 20 Mg Tablet PO 20 mg BID PRN Administration heartburn Finasteride 5 mg 08/06/20 09:00 08/12/20 08:09 Finasteride 5 Mg Tablet PO 5 mg DAILY JAMES Administration Fluticasone Propionate 2 spray 07/26/20 09:00 08/12/20 08:08 Fluticasone Propionate Nasal 16 Gm [employer] NOSTRIL-B 2 spray DAILY JAMES Administration Gabapentin 300 mg 08/10/20 15:00 08/12/20 08:09 Gabapentin 300 Mg Capsule PO 300 mg TID JAMES Administration Haloperidol 2 mg 08/10/20 21:00 08/12/20 08:08 Haloperidol 1 Mg Tablet PO 2 mg BID JAMES Administration Hydroxyzine HCl 25 mg 07/26/20 19:10 08/12/20 00:14 Hydroxyzine Hcl 25 Mg Tablet PO 25 mg BEDTIME PRN Administration Anxiety Magnesium Hydroxide 30 ml 07/26/20 19:10 08/04/20 16:54 Milk Of Magnesia 30 Ml Oral.Susp PO 30 ml DAILY PRN Administration Constipation Methadone HCl 30 mg 07/31/20 09:00 08/12/20 08:08 Methadone Hcl 1 Mg/0.1 Ml Oral.Conc PO 30 mg DAILY JAMES Administration Mirtazapine 30 mg 08/03/20 21:00 08/11/20 22:05 Mirtazapine 30 Mg Tablet PO 30 mg BEDTIME JAMES Administration Ondansetron HCl 4 mg 07/28/20 19:58 08/08/20 04:58 Ondansetron Odt 4 Mg Tab.Rapdis TRANSLINGU 4 mg Q6H PRN Administration Nausea Senna 8.6 mg 08/06/20 21:00 08/11/20 22:00 Sennosides 8.6 Mg Tablet PO 8.6 mg BEDTIME JAMES Administration Sodium Biphosphate/Sodium Phosphate 133 ml 08/05/20 10:59 08/05/20 11:49 Sodium Phosphate,[place]-Dibasic 133 Ml Enema [place] 133 ml ONCE PRN Administration continued constipation Sucralfate 1 gm 08/06/20 17:00 08/12/20 08:08 Sucralfate 1 Gm Tablet PO 1 gm QID JAMES Administration Verapamil HCl 40 mg 07/26/20 09:00 08/12/20 08:09 Verapamil Hcl 40 Mg Tablet PO 40 mg TID JAMES Administration Protocol Allergies Allergies Allergy/AdvReac Type Severity Reaction Status Date / Time trazodone [TRAZODONE] Allergy Severe FACIAL Verified 04/07/20 09:20 SWELLING, swelling cat dander [CATS] Allergy Intermediate FACIAL Verified 04/07/20 09:20 ITCHING doxepin [DOXEPIN] Allergy Intermediate WEIGHT Verified 04/07/20 09:20 GAIN/LEG SWELLING Iodinated Contrast Media Allergy Intermediate ITCHING Verified 04/07/20 09:20 [IV DYE, IODINE CONTAINING CONTRAST ] nitroglycerin [NITROGLYCERIN] Allergy Unknown UNKNOWN Verified 04/07/20 09:20 tramadol [TRAMADOL] Allergy Unknown UNKNOWN, Verified 04/07/20 09:20 dry mouth ibuprofen [From MOTRIN] AdvReac Intermediate GI UPSET Verified 04/07/20 09:20 quetiapine [From SEROQUEL] AdvReac Intermediate FACIAL Verified 04/07/20 09:20 SWELLING aspirin [ASPIRIN] AdvReac Mild Stomach Verified 04/07/20 09:20 Upset Ibuprofen Allergy Unknown stomach Uncoded 04/07/20 09:20 ache IV contrast Allergy Unknown Unknown Uncoded 04/07/20 09:20 Motrin Allergy Unknown stomach Uncoded 04/07/20 09:20 pain Assessment & Plan Assessment & Plan (1) Urinary retention with incomplete bladder emptying: Status: Acute Code(s): R33.9 - Retention of urine, unspecified (2) Psychosis: Qualifiers: Psychosis type: unspecified psychosis type Qualified Code(s): F29 - Unspecified psychosis not due to a substance or known physiological condition Status: Acute Code(s): F29 - Unspecified psychosis not due to a substance or known physiological condition (3) Opioid use disorder: Status: Acute Code(s): F11.99 - Opioid use, unspecified with unspecified opioid-induced disorder (4) Depression with suicidal ideation: Status: Acute Code(s): F32.9 - Major depressive disorder, single episode, unspecified; R45.851 - Suicidal ideations Assessment and Plan: F/P pt stable, though still depressed and with AVH recently started on Haldol Increased Haldol qhs dose to 3mg to see if helps reduce AH -if no improvement, might consider low potency antipsychotic pt compained of burning sensation when urinates, post removal of indwelling cath; quality analyst/technical writer ordered UA which was negative. Pt will inform if discomfort continues. Otherwise, Will continue on current regimen for now. Continue Haldol 2mg in AM on 08/12, increased to Haldol 3mg qhs Add Gabapentin 300 mg po tid. Keep same antidepressants and other medications. F/U Elavil levels F/U urinary retention over the weekend Greater than 50% of the session was spent on counseling and/or coordination of care Reason for contiued inpatient stay Substantial Risk for: rapid decompensation
[2020-08-12] MEDS: HaloperidoL 1 MG TABLET 3 MG PO (19:10)
[2020-08-12] MEDS: cloNIDine HCL 0.1 MG TABLET PO (20:58)
[2020-08-12] MEDS: Amitriptyline HCl 50 MG TABLET 100 MG PO (20:59)
[2020-08-12] MEDS: Doxazosin Mesylate 2 MG TABLET 8 MG PO (20:59)
[2020-08-12] MEDS: Sennosides 8.6 MG TABLET PO (21:00)
[2020-08-12] MEDS: Mirtazapine 30 MG TABLET PO (21:00)
[2020-08-12] MEDS: Zolpidem Tartrate 5 MG TABLET PO (21:24)
[2020-08-13] VITALS (7 sets, daily range): BP systolic 99–138; BP diastolic 51–72; PULSE 78–99; RESP 18; TEMP 36.7–36.8; O2SAT 98
[2020-08-13] MEDS: Fluticasone Propionate Nasal 16 GM SPRAY 2 SPRAY NOSTRIL-B (08:55)
[2020-08-13] MEDS: VerapamiL HCL 40 MG TABLET PO ×2 (08:56→21:55)
[2020-08-13] MEDS: Finasteride 5 MG TABLET PO (08:56)
[2020-08-13] MEDS: atenoloL 25 MG TABLET PO (08:56)
[2020-08-13] MEDS: Docusate Sodium 100 MG CAPSULE PO ×2 (08:56→22:15)
[2020-08-13] MEDS: Gabapentin 300 MG CAPSULE PO ×3 (08:56→21:57)
[2020-08-13] MEDS: HaloperidoL 1 MG TABLET 2 MG PO (08:56)
[2020-08-13] MEDS: clonazePAM 1 MG TABLET PO ×2 (08:57→21:56)
[2020-08-13] MEDS: Sucralfate 1 GM TABLET PO ×4 (08:57→21:57)
--- NOTE | 2020-08-13 10:17 | P.PNPSI_ITS ---
Subjective Subjective Date of Service: 08/13/20 Reason For Visit: SI Subjective Notes: Conditional Voluntary Interim History: The patient still comlaints of auditory hallucinations mostly at night. He didn't improve with Haldol 3 mg po qhs. His elavil level came b ack with a borderline therapeutic level. Still dysphoric and psychotic but less symptomatic than the intake, improving slowly. He didn't need any catheterization during the weeked Medication Compliance: Yes Side effects from medications: No Attending Groups: No Review of Systems Acute medical concerns: No Medical Review of Systems: unchanged Mental Status Exam Mental Status Exam Patient Appearance: Disheveled Patient Orientation: Person, Place, Time and Situation Level of Consciousness: Awake and Appropriate Patient Behavior: Appropriate Mood Description: Calm Affect Description: Calm and Depressed Patient Cognition Impaired: No Ability to Follow Directions: Good Speech Pattern: Clear Memory Description: Intact Hallucinations: Auditory and Visual Delusions: Paranoid Ideation Thought Process: Distracted Thought Content: positive for Intact Judgement: Fair Diagnostics Vital Signs (24Hr): Vital Signs - 24 hr 08/12/20 15:00 08/12/20 20:50 08/12/20 20:58 Temperature 978 F H Pulse Rate 78 77 77 Respiratory Rate Blood Pressure 96/54 L 110/60 110/60 Pulse Oximetry 95 08/12/20 20:59 08/13/20 05:55 08/13/20 08:56 Temperature 98.0 F Pulse Rate 77 97 99 Respiratory Rate 18 Blood Pressure 110/60 116/67 122/64 Pulse Oximetry 98 Body Mass Index 24.5 Labs Results: 07/25/20 20:35 08/05/20 03:13 Labs: Laboratory Results - last 48 hr 08/11/20 11:30 Urine Color YELLOW Urine Appearance CLEAR Urine pH 8.0 Ur Specific [place] 1.015 Urine Protein NEG Urine Glucose (UA) NEG Urine Ketones NEG Urine Blood NEG Urine Nitrite NEG Ur Leukocyte Esterase NEG Imaging Radiology Impressions: ITS Impressions Chest X-Ray 07/26/20 11:31 IMPRESSION: No acute cardiopulmonary process seen. Abdomen/Pelvis CT 08/05/20 02:15 IMPRESSION: No acute findings of the abdomen or pelvis. There is mild fullness of both collecting systems which may be associated with the distended bladder. No bladder wall thickening. Moderate volume of stool throughout the entirety of the colon. Medications Medications Current Medications Generic Name Dose Route Start Last Admin Trade Name Freq PRN Reason Stop Dose Admin Acetaminophen 650 mg 07/26/20 19:10 08/09/20 10:34 Acetaminophen 325 Mg Tablet PO 650 mg Q6H PRN Administration Headache/Pain Mild Scale (1-3) Al Hydroxide/Mg Hydroxide 30 ml 07/31/20 18:25 08/09/20 04:04 Magnesium Hydrox/Alum Hydrox 30 Ml Oral.Susp PO 30 ml Q4H PRN Administration Heartburn/Nausea Amitriptyline HCl 125 mg 08/13/20 21:00 Amitriptyline Hcl 25 Mg Tablet PO BEDTIME JAMES Atenolol 25 mg 07/26/20 09:00 08/13/20 08:56 Atenolol 25 Mg Tablet PO 25 mg DAILY JAMES Administration Protocol Bisacodyl 10 mg 08/05/20 02:00 08/05/20 05:47 Bisacodyl 10 Mg Supp.Rect [place] 10 mg BEDTIME PRN Administration Constipation Clonazepam 1 mg 08/05/20 09:15 08/13/20 08:57 Clonazepam 1 Mg Tablet PO 1 mg BID JAMES Administration Clonidine HCl 0.1 mg 07/26/20 21:00 08/12/20 20:58 Clonidine Hcl 0.1 Mg Tablet PO 0.1 mg BEDTIME JAMES Administration Protocol Clonidine HCl 0.1 mg 07/26/20 19:35 08/10/20 01:27 Clonidine Hcl 0.1 Mg Tablet PO 0.1 mg Q4H PRN Administration Opiate Withdrawal Protocol Docusate Sodium 100 mg 08/05/20 09:00 08/13/20 08:56 Docusate Sodium 100 Mg Capsule PO 100 mg BID JAMES Administration Doxazosin Mesylate 8 mg 08/05/20 21:00 08/12/20 20:59 Doxazosin Mesylate 2 Mg Tablet PO 8 mg BEDTIME JAMES Administration Protocol Famotidine 20 mg 07/31/20 18:24 08/10/20 05:21 Famotidine 20 Mg Tablet PO 20 mg BID PRN Administration heartburn Finasteride 5 mg 08/06/20 09:00 08/13/20 08:56 Finasteride 5 Mg Tablet PO 5 mg DAILY JAMES Administration Fluticasone Propionate 2 spray 07/26/20 09:00 08/13/20 08:55 Fluticasone Propionate Nasal 16 Gm [place] NOSTRIL-B 2 spray DAILY JAMES Administration Gabapentin 300 mg 08/10/20 15:00 08/13/20 08:56 Gabapentin 300 Mg Capsule PO 300 mg TID JAMES Administration Haloperidol 2 mg 08/13/20 09:00 08/13/20 08:56 Haloperidol 1 Mg Tablet PO 2 mg DAILY JAMES Administration Haloperidol 5 mg 08/13/20 21:00 Haloperidol 5 Mg Tablet PO BEDTIME JAMES Hydroxyzine HCl 25 mg 07/26/20 19:10 08/12/20 00:14 Hydroxyzine Hcl 25 Mg Tablet PO 25 mg BEDTIME PRN Administration Anxiety Magnesium Hydroxide 30 ml 07/26/20 19:10 08/04/20 16:54 Milk Of Magnesia 30 Ml Oral.Susp PO 30 ml DAILY PRN Administration Constipation Methadone HCl 30 mg 07/31/20 09:00 08/13/20 08:56 Methadone Hcl 1 Mg/0.1 Ml Oral.Conc PO 30 mg DAILY JAMES Administration Mirtazapine 30 mg 08/03/20 21:00 08/12/20 21:00 Mirtazapine 30 Mg Tablet PO 30 mg BEDTIME JAMES Administration Ondansetron HCl 4 mg 07/28/20 19:58 08/08/20 04:58 Ondansetron Odt 4 Mg Tab.Rapdis TRANSLINGU 4 mg Q6H PRN Administration Nausea Senna 8.6 mg 08/06/20 21:00 08/12/20 21:00 Sennosides 8.6 Mg Tablet PO 8.6 mg BEDTIME JAMES Administration Sodium Biphosphate/Sodium Phosphate 133 ml 08/05/20 10:59 08/05/20 11:49 Sodium Phosphate,[place]-Dibasic 133 Ml Enema [place] 133 ml ONCE PRN Administration continued constipation Sucralfate 1 gm 08/06/20 17:00 08/13/20 08:57 Sucralfate 1 Gm Tablet PO 1 gm QID JAMES Administration Verapamil HCl 40 mg 07/26/20 09:00 08/13/20 08:56 Verapamil Hcl 40 Mg Tablet PO 40 mg TID JAMES Administration Protocol Zolpidem Tartrate 5 mg 08/12/20 21:11 08/12/20 21:24 Zolpidem Tartrate 5 Mg Tablet PO 5 mg BEDTIME PRN Administration Insomnia Allergies Allergies Allergy/AdvReac Type Severity Reaction Status Date / Time trazodone [TRAZODONE] Allergy Severe FACIAL Verified 04/07/20 09:20 SWELLING, swelling cat dander [CATS] Allergy Intermediate FACIAL Verified 04/07/20 09:20 ITCHING doxepin [DOXEPIN] Allergy Intermediate WEIGHT Verified 04/07/20 09:20 GAIN/LEG SWELLING Iodinated Contrast Media Allergy Intermediate ITCHING Verified 04/07/20 09:20 [IV DYE, IODINE CONTAINING CONTRAST ] nitroglycerin [NITROGLYCERIN] Allergy Unknown UNKNOWN Verified 04/07/20 09:20 tramadol [TRAMADOL] Allergy Unknown UNKNOWN, Verified 04/07/20 09:20 dry mouth ibuprofen [From MOTRIN] AdvReac Intermediate GI UPSET Verified 04/07/20 09:20 quetiapine [From SEROQUEL] AdvReac Intermediate FACIAL Verified 04/07/20 09:20 SWELLING aspirin [ASPIRIN] AdvReac Mild Stomach Verified 04/07/20 09:20 Upset Ibuprofen Allergy Unknown stomach Uncoded 04/07/20 09:20 ache IV contrast Allergy Unknown Unknown Uncoded 04/07/20 09:20 Motrin Allergy Unknown stomach Uncoded 04/07/20 09:20 pain Assessment & Plan Assessment & Plan (1) Urinary retention with incomplete bladder emptying: Status: Acute Code(s): R33.9 - Retention of urine, unspecified (2) Psychosis: Qualifiers: Psychosis type: unspecified psychosis type Qualified Code(s): F29 - Unspecified psychosis not due to a substance or known physiological condition Status: Acute Code(s): F29 - Unspecified psychosis not due to a substance or known physiological condition (3) Opioid use disorder: Status: Acute Code(s): F11.99 - Opioid use, unspecified with unspecified opioid-induced disorder (4) Depression with suicidal ideation: Status: Acute Code(s): F32.9 - Major depressive disorder, single episode, unspecified; R45.851 - Suicidal ideations Assessment and Plan: F/P pt stable, though still depressed and with AVH recently started on Haldol Increased Haldol qhs dose to 5 mg since 3 mg has not helped. pt compained of burning sensation when urinates, post removal of indwelling cath; telegraphic typewriter repairer ordered UA which was negative. Pt will inform if discomfort continues. Otherwise, Will continue on current regimen for now. Continue Haldol 2mg in AM on 08/13, increased to Haldol 5 mg qhs Keep rest the same Greater than 50% of the session was spent on counseling and/or coordination of care Reason for contiued inpatient stay Substantial Risk for: harm to self, inability to function, rapid decompensation and med/psych decompensation
--- NOTE | 2020-08-13 11:36 | P.PNGPS_ITS ---
Subjective/Objective Subjective Current Medications: Active Medications Generic Name Dose Route Start Last Admin Trade Name Freq PRN Reason Stop Dose Admin Acetaminophen 650 mg 07/26/20 19:10 08/09/20 10:34 Acetaminophen 325 Mg Tablet PO 650 mg Q6H PRN Administration Headache/Pain Mild Scale (1-3) Al Hydroxide/Mg Hydroxide 30 ml 07/31/20 18:25 08/09/20 04:04 Magnesium Hydrox/Alum Hydrox 30 Ml Oral.Susp PO 30 ml Q4H PRN Administration Heartburn/Nausea Amitriptyline HCl 125 mg 08/13/20 21:00 Amitriptyline Hcl 25 Mg Tablet PO BEDTIME JAMES Atenolol 25 mg 07/26/20 09:00 08/13/20 08:56 Atenolol 25 Mg Tablet PO 25 mg DAILY JAMES Administration Protocol Bisacodyl 10 mg 08/05/20 02:00 08/05/20 05:47 Bisacodyl 10 Mg Supp.Rect NE 10 mg BEDTIME PRN Administration Constipation Clonazepam 1 mg 08/05/20 09:15 08/13/20 08:57 Clonazepam 1 Mg Tablet PO 1 mg BID JAMES Administration Clonidine HCl 0.1 mg 07/26/20 21:00 08/12/20 20:58 Clonidine Hcl 0.1 Mg Tablet PO 0.1 mg BEDTIME JAMES Administration Protocol Clonidine HCl 0.1 mg 07/26/20 19:35 08/10/20 01:27 Clonidine Hcl 0.1 Mg Tablet PO 0.1 mg Q4H PRN Administration Opiate Withdrawal Protocol Docusate Sodium 100 mg 08/05/20 09:00 08/13/20 08:56 Docusate Sodium 100 Mg Capsule PO 100 mg BID JAMES Administration Doxazosin Mesylate 8 mg 08/05/20 21:00 08/12/20 20:59 Doxazosin Mesylate 2 Mg Tablet PO 8 mg BEDTIME JAMES Administration Protocol Famotidine 20 mg 07/31/20 18:24 08/10/20 05:21 Famotidine 20 Mg Tablet PO 20 mg BID PRN Administration heartburn Finasteride 5 mg 08/06/20 09:00 08/13/20 08:56 Finasteride 5 Mg Tablet PO 5 mg DAILY JAMES Administration Fluticasone Propionate 2 spray 07/26/20 09:00 08/13/20 08:55 Fluticasone Propionate Nasal 16 Gm [place] NOSTRIL-B 2 spray DAILY JAMES Administration Gabapentin 300 mg 08/10/20 15:00 08/13/20 08:56 Gabapentin 300 Mg Capsule PO 300 mg TID JAMES Administration Haloperidol 2 mg 08/13/20 09:00 08/13/20 08:56 Haloperidol 1 Mg Tablet PO 2 mg DAILY JAMES Administration Haloperidol 5 mg 08/13/20 21:00 Haloperidol 5 Mg Tablet PO BEDTIME JAMES Hydroxyzine HCl 25 mg 07/26/20 19:10 08/12/20 00:14 Hydroxyzine Hcl 25 Mg Tablet PO 25 mg BEDTIME PRN Administration Anxiety Magnesium Hydroxide 30 ml 07/26/20 19:10 08/04/20 16:54 Milk Of Magnesia 30 Ml Oral.Susp PO 30 ml DAILY PRN Administration Constipation Methadone HCl 30 mg 07/31/20 09:00 08/13/20 08:56 Methadone Hcl 1 Mg/0.1 Ml Oral.Conc PO 30 mg DAILY JAMES Administration Mirtazapine 30 mg 08/03/20 21:00 08/12/20 21:00 Mirtazapine 30 Mg Tablet PO 30 mg BEDTIME JAMES Administration Ondansetron HCl 4 mg 07/28/20 19:58 08/08/20 04:58 Ondansetron Odt 4 Mg Tab.Rapdis TRANSLINGU 4 mg Q6H PRN Administration Nausea Senna 8.6 mg 08/06/20 21:00 08/12/20 21:00 Sennosides 8.6 Mg Tablet PO 8.6 mg BEDTIME JAMES Administration Sodium Biphosphate/Sodium Phosphate 133 ml 08/05/20 10:59 08/05/20 11:49 Sodium Phosphate,[place]-Dibasic 133 Ml Enema [place] 133 ml ONCE PRN Administration continued constipation Sucralfate 1 gm 08/06/20 17:00 08/13/20 08:57 Sucralfate 1 Gm Tablet PO 1 gm QID JAMES Administration Verapamil HCl 40 mg 07/26/20 09:00 08/13/20 08:56 Verapamil Hcl 40 Mg Tablet PO 40 mg TID JAMES Administration Protocol Zolpidem Tartrate 5 mg 08/12/20 21:11 08/12/20 21:24 Zolpidem Tartrate 5 Mg Tablet PO 5 mg BEDTIME PRN Administration Insomnia Data Labs CBC & Chem 7: 07/25/20 20:35 08/05/20 03:13 Labs: Laboratory Results - last 48 hr 08/11/20 11:30 Urine Color YELLOW Urine Appearance CLEAR Urine pH 8.0 Ur Specific [place] 1.015 Urine Protein NEG Urine Glucose (UA) NEG Urine Ketones NEG Urine Blood NEG Urine Nitrite NEG Ur Leukocyte Esterase NEG Geriatric Psychiatry - A/P Assessment and plan (1) BPH w urinary obs/LUTS: Status: Acute
[2020-08-13 20:02] LABS: MANUAL DIFF FLAG NO
[2020-08-13 20:07] LABS: Basophils Percent Auto 0.2 % (0-2); Eosinophils Absolute Auto 0.2 X10*3/uL (0.0-0.4); Eosinophils Percent Auto 2.2 % (0-4); Hemoglobin 10.7 g/dl (14.0-18.0); Imm Gran Abs Auto 0.03 X10*3/uL (0.00-0.03); Imm Gran Pct Auto 0.4 % (0.0-0.4); Lymphocytes Absolute Auto 1.8 X10*3/uL (1.2-4.9); Lymphocytes Percent Auto 21.6 % (20-40); Mean Corpuscular HGB Conc 31.5 g/dl (31.0-36.0); Mean Corpuscular Hemoglobin 30.8 pg (27.0-33.0); Mean Platelet Volume 9.4 fL (9.4-12.4); Monocytes Absolute Auto 0.6 X10*3/uL (0.1-1.2); Monocytes Percent Auto 6.6 % (2-11); Neutrophils Absolute Auto 5.9 X10*3/uL (2.0-8.3); Platelet Count 197 X10*3/uL (160-400); Red Blood Count 3.47 X10*6/uL (4.60-5.80); Red Cell Distribution Width 14.3 % (11.0-16.0); White Blood Count 8.5 X10*3/uL (4.8-10.8)
[2020-08-13 20:27] LABS: Anion Gap 14 (12-20); Blood Urea Nitrogen 20 mg/dL (9-16); Calcium 9.2 mg/dL (8.4-10.2); Carbon Dioxide 32 mmol/L (22-29); Chloride 98 mmol/L (96-108); Creatinine Clr Calc Pharmacy 97.4; Estimated Glomerular Filt Rate > 60; Glucose Random 98 mg/dL (60-115); Potassium 4.3 mmol/L (3.3-5.1); Sodium 140 mmol/L (135-145)
[2020-08-13] MEDS: iohexoL 350 MG/ML 100 ML INFUS..BTL IV (21:25)
[2020-08-13] MEDS: cloNIDine HCL 0.1 MG TABLET PO (21:54)
[2020-08-13] MEDS: Sennosides 8.6 MG TABLET PO (21:55)
[2020-08-13] MEDS: Mirtazapine 30 MG TABLET PO (21:56)
[2020-08-13] MEDS: Doxazosin Mesylate 2 MG TABLET 8 MG PO (21:56)
[2020-08-13] MEDS: HaloperidoL 5 MG TABLET PO (21:57)
[2020-08-13] MEDS: Amitriptyline HCl 25 MG TABLET 125 MG PO (21:57)
[2020-08-13] MEDS: Acetaminophen 325 MG TABLET 650 MG PO (21:59)
[2020-08-13] MEDS: Milk of Magnesia 30 ML ORAL.SUSP PO (22:12)
[2020-08-13] MEDS: diphenhydrAMINE HCL 50 MG/ML VIAL 25 MG IVPUSH (22:15)
--- NOTE | 2020-08-13 22:23 | P.HPHOSP_ITS ---
History of Present Illness Date of Service: 08/13/20 Chief Complaint: arm swelling This is a 50-year-old male with past medical history of depression anxiety, GERD, dysphagia, BPH, who is currently managed at [facility] for psychosis. We are consulted on this patient after he received paliparidone injection in his left arm and developed swelling. On my interview of the patient, he is complaining of left upper arm swelling, pain, difficulty moving it due to the pain. He reports that his symptoms started last night and worsened over the course of today. He denies any fever or chills, he reports some numbness and tingling in the arm with no weakness. He reports no abdominal pain nausea or vomiting, no chest pain, no headache or change in vision, no urinary symptoms and no lower extremity edema. Vitals have been stable Lab significant for WBC count of 8.5, hemoglobin of 10.7 CPK of 80 otherwise unremarkable. Patient underwent CT of the humerus which showed subcutaneous soft tissue edema lateral to the left shoulder and proximal humerus with no abnormal fluid collection or gas visualized to suspect any drainable abscess or mass. No bony abnormality. [facility] Medical History Anxiety Chest pain Dysphagia GERD (gastroesophageal reflux disease) Weight loss Family History Father HTN (hypertension) Diabetes Mother HTN (hypertension) Stroke Alzheimer disease Heart disease Surgical History H/O umbilical hernia repair History of colonoscopy History of cystoscopy Social History Household Members: Friend(s) Housing: Homeless Do you presently have visiting nurse or other home services: No Alcohol intake: current Alcohol intake frequency: 3 or more drinks per day Smoking Status: Current every day smoker Tobacco Type: Cigarette Packs Per Day: 1 Cigarettes Per Day: 20.0 Years Smoked: 9 Smoked in Last 30 Days: Yes Patient Interested in Nicotine Replacement: No Patient Given Instructions on How to Stop Smoking: No (patient stated he does not wish to quit at this time) Second Hand Smoke Exposure: Yes Use of substances other than those prescribed or required for medical reasons: Yes Substance Use Type: Crack/Cocaine Substance Use Frequency: Weekly Last Used Substance: Just Prior to Admission Currently Displaying Signs/Symptoms of Drug Intoxication Withdrawal: No Any prior treatment program specific to substance use: No Have you been hit, kicked, punched, or otherwise hurt by someone within the past year? If so, by whom?: No Do you feel safe in your current relationship?: No Is there a partner from a previous relationship who is making you feel unsafe now?: No Are you made to feel afraid or neglected: No Spiritual Healthcare Practices: none reported Christian Healthcare Practices: none reported Cultural Healthcare Practices: none reported Advance Directives: Yes Advance Directives Information Provided: No (did not wish to have information) Advance Directives on File: Yes Advance Directives Date on File: 02/24/20 Do you have thoughts of harming others: None Do you have a plan to hurt others: No Plan Recently lost weight without trying: Yes How much weight loss: 34pounds or more Eating poorly because of decreased appetite: Yes Nutrition screen score: 7 Nutrition Risks: Acute nausea or vomiting x1 week, Difficulty swallowing and Poor intake 0-25% >4 days Poor oral hygiene: No service: No Current occupational status: disabled Sexual orientation: Straight/Heterosexual Meds Allergies Allergy/AdvReac Type Severity Reaction Status Date / Time trazodone [TRAZODONE] Allergy Severe FACIAL Verified 04/07/20 09:20 SWELLING, swelling cat dander [CATS] Allergy Intermediate FACIAL Verified 04/07/20 09:20 ITCHING doxepin [DOXEPIN] Allergy Intermediate WEIGHT Verified 04/07/20 09:20 GAIN/LEG SWELLING Iodinated Contrast Media Allergy Intermediate ITCHING Verified 04/07/20 09:20 [IV DYE, IODINE CONTAINING CONTRAST ] nitroglycerin [NITROGLYCERIN] Allergy Unknown UNKNOWN Verified 04/07/20 09:20 tramadol [TRAMADOL] Allergy Unknown UNKNOWN, Verified 04/07/20 09:20 dry mouth ibuprofen [From MOTRIN] AdvReac Intermediate GI UPSET Verified 04/07/20 09:20 quetiapine [From SEROQUEL] AdvReac Intermediate FACIAL Verified 04/07/20 09:20 SWELLING aspirin [ASPIRIN] AdvReac Mild Stomach Verified 04/07/20 09:20 Upset Ibuprofen Allergy Unknown stomach Uncoded 04/07/20 09:20 ache IV contrast Allergy Unknown Unknown Uncoded 04/07/20 09:20 Motrin Allergy Unknown stomach Uncoded 04/07/20 09:20 pain Active Medications: Current Medications Generic Name Dose Route Start Last Admin Trade Name Freq PRN Reason Stop Dose Admin Acetaminophen 650 mg 07/26/20 19:10 08/13/20 21:59 Acetaminophen 325 Mg Tablet PO 650 mg Q6H PRN Administration Headache/Pain Mild Scale (1-3) Al Hydroxide/Mg Hydroxide 30 ml 07/31/20 18:25 08/09/20 04:04 Magnesium Hydrox/Alum Hydrox 30 Ml Oral.Susp PO 30 ml Q4H PRN Administration Heartburn/Nausea Amitriptyline HCl 125 mg 08/13/20 21:00 08/13/20 21:57 Amitriptyline Hcl 25 Mg Tablet PO 125 mg BEDTIME JAMES Administration Atenolol 25 mg 07/26/20 09:00 08/13/20 08:56 Atenolol 25 Mg Tablet PO 25 mg DAILY JAMES Administration Protocol Bisacodyl 10 mg 08/05/20 02:00 08/05/20 05:47 Bisacodyl 10 Mg Supp.Rect [place] 10 mg BEDTIME PRN Administration Constipation Clonazepam 1 mg 08/05/20 09:15 08/13/20 21:56 Clonazepam 1 Mg Tablet PO 1 mg BID JAMES Administration Clonidine HCl 0.1 mg 07/26/20 21:00 08/13/20 21:54 Clonidine Hcl 0.1 Mg Tablet PO 0.1 mg BEDTIME JAMES Administration Protocol Clonidine HCl 0.1 mg 07/26/20 19:35 08/10/20 01:27 Clonidine Hcl 0.1 Mg Tablet PO 0.1 mg Q4H PRN Administration Opiate Withdrawal Protocol Docusate Sodium 100 mg 08/05/20 09:00 08/13/20 22:15 Docusate Sodium 100 Mg Capsule PO 100 mg BID JAMES Administration Doxazosin Mesylate 8 mg 08/05/20 21:00 08/13/20 21:56 Doxazosin Mesylate 2 Mg Tablet PO 8 mg BEDTIME JAMES Administration Protocol Famotidine 20 mg 07/31/20 18:24 08/10/20 05:21 Famotidine 20 Mg Tablet PO 20 mg BID PRN Administration heartburn Finasteride 5 mg 08/06/20 09:00 08/13/20 08:56 Finasteride 5 Mg Tablet PO 5 mg DAILY JAMES Administration Fluticasone Propionate 2 spray 07/26/20 09:00 08/13/20 08:55 Fluticasone Propionate Nasal 16 Gm [place] NOSTRIL-B 2 spray DAILY JAMES Administration Gabapentin 300 mg 08/10/20 15:00 08/13/20 21:57 Gabapentin 300 Mg Capsule PO 300 mg TID JAMES Administration Haloperidol 2 mg 08/13/20 09:00 08/13/20 08:56 Haloperidol 1 Mg Tablet PO 2 mg DAILY JAMES Administration Haloperidol 5 mg 08/13/20 21:00 08/13/20 21:57 Haloperidol 5 Mg Tablet PO 5 mg BEDTIME JAMES Administration Hydroxyzine HCl 25 mg 07/26/20 19:10 08/12/20 00:14 Hydroxyzine Hcl 25 Mg Tablet PO 25 mg BEDTIME PRN Administration Anxiety Magnesium Hydroxide 30 ml 07/26/20 19:10 08/13/20 22:12 Milk Of Magnesia 30 Ml Oral.Susp PO 30 ml DAILY PRN Administration Constipation Methadone HCl 30 mg 07/31/20 09:00 08/13/20 08:56 Methadone Hcl 1 Mg/0.1 Ml Oral.Conc PO 30 mg DAILY JAMES Administration Mirtazapine 30 mg 08/03/20 21:00 08/13/20 21:56 Mirtazapine 30 Mg Tablet PO 30 mg BEDTIME JAMES Administration Ondansetron HCl 4 mg 07/28/20 19:58 08/08/20 04:58 Ondansetron Odt 4 Mg Tab.Rapdis TRANSLINGU 4 mg Q6H PRN Administration Nausea Senna 8.6 mg 08/06/20 21:00 08/13/20 21:55 Sennosides 8.6 Mg Tablet PO 8.6 mg BEDTIME JAMES Administration Sodium Biphosphate/Sodium Phosphate 133 ml 08/05/20 10:59 08/05/20 11:49 Sodium Phosphate,[place]-Dibasic 133 Ml Enema [place] 133 ml ONCE PRN Administration continued constipation Sucralfate 1 gm 08/06/20 17:00 08/13/20 21:57 Sucralfate 1 Gm Tablet PO 1 gm QID JAMES Administration Verapamil HCl 40 mg 07/26/20 09:00 08/13/20 21:55 Verapamil Hcl 40 Mg Tablet PO 40 mg TID JAMES Administration Protocol Zolpidem Tartrate 5 mg 08/12/20 21:11 08/12/20 21:24 Zolpidem Tartrate 5 Mg Tablet PO 5 mg BEDTIME PRN Administration Insomnia Home Medications Medication Instructions Recorded Confirmed Last Taken Type amitriptyline 1 tab PO BEDTIME 07/26/20 07/26/20 Unknown History atenolol 1 tab PO DAILY 07/26/20 07/26/20 Unknown History clonazepam 1 tab PO BID 07/26/20 07/26/20 Unknown History clonidine HCl 1 tab PO BEDTIME 07/26/20 07/26/20 Unknown History divalproex 1 tab PO BID 07/26/20 07/26/20 Unknown History fluticasone propionate 2 spray INTRANASAL DAILY 07/26/20 07/26/20 Unknown History mirtazapine 1 tab PO BEDTIME 07/26/20 07/26/20 Unknown History risperidone 1 tab PO BID 07/26/20 07/26/20 Unknown History sucralfate 1 tab PO QID 07/26/20 07/26/20 Unknown History tamsulosin 1 cap PO DAILY 07/26/20 07/26/20 Unknown History valproic acid (as sodium salt) 10 ml PO BID 07/26/20 07/26/20 Unknown History verapamil 1 tab PO TID 07/26/20 07/26/20 Unknown History zolpidem [Ambien] 10 mg PO BEDTIME PRN 07/26/20 07/26/20 Unknown History Physical Exam Vital Signs and Narrative: Vital Signs: Last Vital Signs Temp 98.0 F 08/13/20 05:55 Pulse 92 08/13/20 21:56 Resp 18 08/13/20 05:55 BP 138/72 08/13/20 21:56 Pulse Ox 98 08/13/20 05:55 Body Mass Index 24.5 Results Labs CBC and Chem 7: 08/13/20 19:56 08/13/20 19:56 Labs: Laboratory Results - last 24 hr 08/13/20 08/13/20 19:56 19:56 MCV 98.0 MCH 30.8 MCHC 31.5 RDW 14.3 Plt Count 197 MPV 9.4 Immature Gran % (Auto) 0.4 Neut % (Auto) 69.0 Lymph % (Auto) 21.6 [place] % (Auto) 6.6 Eos % (Auto) 2.2 Baso % (Auto) 0.2 Lymph # (Auto) 1.8 [place] # (Auto) 0.6 Eos # (Auto) 0.2 Baso # (Auto) 0.0 Abs Immat Gran (auto) 0.03 Absolute Neuts (auto) 5.9 Absolute Nucleated RBC 0.000 Nucleated RBC % (auto) 0.0 Anion Gap 14 Estim Creat Clear Calc 97.4 Estimated GFR > 60 Random Glucose 98 Calcium 9.2 Total Creatine Kinase 80 Imaging Radiologist's Impressions: Impressions Humerus CT 08/13/20 21:20 IMPRESSION: Nonspecific subcutaneous soft tissue edema lateral to the left shoulder and proximal humerus. There is no abnormal fluid collection or gas visualized to suspect any drainable abscess or mass. There is no bony abnormality involving the left humerus.
--- NOTE | 2020-08-13 23:49 | PC.NURSE ---
At 1800 patient complained of left Deltoid pain 9/10. Area noted to be tender, raised area which was marked by this creative services writer. Patient said that he had recently had an Invega Sustenna shot and said that his arm was feeling worse today. No streaking or redness noted to the area. On- call provider was notified and a Hospitalist consult was put in. Hospitalist saw patient and ordered STAT BMP, CBCD; Creatinine Kinase labs as Reswell as a CT with contrast of Left humerus. Patient was cooperative with the procedures and tolerated them well. Patient was febrile at 2145 with an oral temperature of 99.6F. He was given Tylenol 650 mg at 2149 with positive effect; patient asleep at shift change.
[2020-08-14] VITALS (7 sets, daily range): BP systolic 102–126; BP diastolic 55–71; PULSE 75–99; RESP 18; TEMP 36.4–36.9; O2SAT 98
--- NOTE | 2020-08-14 06:23 | PM.IMCN ---
History of Present Illness Data of Consult Service Date: 08/13/20 Requesting physician: Ira Funk Primary Care Provider: Patrick Ly MD [facility] Reason for consult: arm swelling This is a 50-year-old male with past medical history of depression anxiety, GERD, dysphagia, BPH, who is currently managed at [facility] for psychosis. We are consulted on this patient after he received paliparidone injection in his left arm and developed swelling. On my interview of the patient, he is complaining of left upper arm swelling, pain, difficulty moving it due to the pain. He reports that his symptoms started last night and worsened over the course of today. He denies any fever or chills, he reports some numbness and tingling in the arm with no weakness. He reports no abdominal pain nausea or vomiting, no chest pain, no headache or change in vision, no urinary symptoms and no lower extremity edema. Vitals have been stable Lab significant for WBC count of 8.5, hemoglobin of 10.7 CPK of 80 otherwise unremarkable. Patient underwent CT of the humerus which showed subcutaneous soft tissue edema lateral to the left shoulder and proximal humerus with no abnormal fluid collection or gas visualized to suspect any drainable abscess or mass. No bony abnormality. Past medical history asthma lung confirmed with patient Review of Systems Review of Systems: Yes all other systems are reviewed and are negative [facility] Medical History Alcohol dependence Anxiety Chest pain Derangement of symphysis pubis Dysphagia GERD (gastroesophageal reflux disease) Major depressive disorder, recurrent severe without psychotic features Opioid abuse Weight loss Family History Father HTN (hypertension) Diabetes Mother HTN (hypertension) Stroke Alzheimer disease Heart disease Surgical History H/O umbilical hernia repair History of colonoscopy History of cystoscopy Social History Household Members: Friend(s) Housing: Homeless Do you presently have visiting nurse or other home services: No Alcohol intake: current Alcohol intake frequency: 3 or more drinks per day Smoking Status: Current every day smoker Tobacco Type: Cigarette Packs Per Day: 1 Cigarettes Per Day: 20.0 Years Smoked: 9 Smoked in Last 30 Days: Yes Patient Interested in Nicotine Replacement: No Patient Given Instructions on How to Stop Smoking: No (patient stated he does not wish to quit at this time) Second Hand Smoke Exposure: Yes Use of substances other than those prescribed or required for medical reasons: Yes Substance Use Type: Crack/Cocaine Substance Use Frequency: Weekly Last Used Substance: Just Prior to Admission Currently Displaying Signs/Symptoms of Drug Intoxication Withdrawal: No Any prior treatment program specific to substance use: No Have you been hit, kicked, punched, or otherwise hurt by someone within the past year? If so, by whom?: No Do you feel safe in your current relationship?: No Is there a partner from a previous relationship who is making you feel unsafe now?: No Are you made to feel afraid or neglected: No Spiritual Healthcare Practices: none reported Alevism Healthcare Practices: none reported Cultural Healthcare Practices: none reported Advance Directives: Yes Advance Directives Information Provided: No (did not wish to have information) Advance Directives on File: Yes Advance Directives Date on File: 02/24/20 Do you have thoughts of harming others: None Do you have a plan to hurt others: No Plan Recently lost weight without trying: Yes How much weight loss: 34pounds or more Eating poorly because of decreased appetite: Yes Nutrition screen score: 7 Nutrition Risks: Acute nausea or vomiting x1 week, Difficulty swallowing and Poor intake 0-25% >4 days Poor oral hygiene: No service: No Current occupational status: disabled Sexual orientation: Straight/Heterosexual Meds Allergies Allergy/AdvReac Type Severity Reaction Status Date / Time trazodone [TRAZODONE] Allergy Severe FACIAL Verified 04/07/20 09:20 SWELLING, swelling cat dander [CATS] Allergy Intermediate FACIAL Verified 04/07/20 09:20 ITCHING doxepin [DOXEPIN] Allergy Intermediate WEIGHT Verified 04/07/20 09:20 GAIN/LEG SWELLING Iodinated Contrast Media Allergy Intermediate ITCHING Verified 04/07/20 09:20 [IV DYE, IODINE CONTAINING CONTRAST ] nitroglycerin [NITROGLYCERIN] Allergy Unknown UNKNOWN Verified 04/07/20 09:20 tramadol [TRAMADOL] Allergy Unknown UNKNOWN, Verified 04/07/20 09:20 dry mouth ibuprofen [From MOTRIN] AdvReac Intermediate GI UPSET Verified 01/02/21 09:20 quetiapine [From SEROQUEL] AdvReac Intermediate FACIAL Verified 04/07/20 09:20 SWELLING aspirin [ASPIRIN] AdvReac Mild Stomach Verified 04/07/20 09:20 Upset Ibuprofen Allergy Unknown stomach Uncoded 04/07/20 09:20 ache IV contrast Allergy Unknown Unknown Uncoded 04/07/20 09:20 Motrin Allergy Unknown stomach Uncoded 04/07/20 09:20 pain Active Medications: Current Medications Generic Name Dose Route Start Last Admin Trade Name Freq PRN Reason Stop Dose Admin Acetaminophen 650 mg 07/26/20 19:10 08/13/20 21:59 Acetaminophen 325 Mg Tablet PO 650 mg Q6H PRN Administration Headache/Pain Mild Scale (1-3) Al Hydroxide/Mg Hydroxide 30 ml 07/31/20 18:25 08/09/20 04:04 Magnesium Hydrox/Alum Hydrox 30 Ml Oral.Susp PO 30 ml Q4H PRN Administration Heartburn/Nausea Amitriptyline HCl 125 mg 08/13/20 21:00 08/13/20 21:57 Amitriptyline Hcl 25 Mg Tablet PO 125 mg BEDTIME JAMES Administration Atenolol 25 mg 07/26/20 09:00 08/13/20 08:56 Atenolol 25 Mg Tablet PO 25 mg DAILY JAMES Administration Protocol Bisacodyl 10 mg 08/05/20 02:00 08/05/20 05:47 Bisacodyl 10 Mg Supp.Rect MA 10 mg BEDTIME PRN Administration Constipation Clonazepam 1 mg 08/05/20 09:15 08/13/20 21:56 Clonazepam 1 Mg Tablet PO 1 mg BID JAMES Administration Clonidine HCl 0.1 mg 07/26/20 21:00 08/13/20 21:54 Clonidine Hcl 0.1 Mg Tablet PO 0.1 mg BEDTIME JAMES Administration Protocol Clonidine HCl 0.1 mg 07/26/20 19:35 08/10/20 01:27 Clonidine Hcl 0.1 Mg Tablet PO 0.1 mg Q4H PRN Administration Opiate Withdrawal Protocol Docusate Sodium 100 mg 08/05/20 09:00 08/13/20 22:15 Docusate Sodium 100 Mg Capsule PO 100 mg BID JAMES Administration Doxazosin Mesylate 8 mg 08/05/20 21:00 08/13/20 21:56 Doxazosin Mesylate 2 Mg Tablet PO 8 mg BEDTIME JAMES Administration Protocol Famotidine 20 mg 07/31/20 18:24 08/10/20 05:21 Famotidine 20 Mg Tablet PO 20 mg BID PRN Administration heartburn Finasteride 5 mg 08/06/20 09:00 08/13/20 08:56 Finasteride 5 Mg Tablet PO 5 mg DAILY JAMES Administration Fluticasone Propionate 2 spray 07/26/20 09:00 08/13/20 08:55 Fluticasone Propionate Nasal 16 Gm [place] NOSTRIL-B 2 spray DAILY JAMES Administration Gabapentin 300 mg 08/10/20 15:00 08/13/20 21:57 Gabapentin 300 Mg Capsule PO 300 mg TID JAMES Administration Haloperidol 2 mg 08/13/20 09:00 08/13/20 08:56 Haloperidol 1 Mg Tablet PO 2 mg DAILY JAMES Administration Haloperidol 5 mg 08/13/20 21:00 08/13/20 21:57 Haloperidol 5 Mg Tablet PO 5 mg BEDTIME JAMES Administration Hydroxyzine HCl 25 mg 07/26/20 19:10 08/12/20 00:14 Hydroxyzine Hcl 25 Mg Tablet PO 25 mg BEDTIME PRN Administration Anxiety Magnesium Hydroxide 30 ml 07/26/20 19:10 08/13/20 22:12 Milk Of Magnesia 30 Ml Oral.Susp PO 30 ml DAILY PRN Administration Constipation Methadone HCl 30 mg 07/31/20 09:00 08/13/20 08:56 Methadone Hcl 1 Mg/0.1 Ml Oral.Conc PO 30 mg DAILY JAMES Administration Mirtazapine 30 mg 08/03/20 21:00 08/13/20 21:56 Mirtazapine 30 Mg Tablet PO 30 mg BEDTIME JAMES Administration Ondansetron HCl 4 mg 07/28/20 19:58 08/08/20 04:58 Ondansetron Odt 4 Mg Tab.Rapdis TRANSLINGU 4 mg Q6H PRN Administration Nausea Senna 8.6 mg 08/06/20 21:00 08/13/20 21:55 Sennosides 8.6 Mg Tablet PO 8.6 mg BEDTIME JAMES Administration Sodium Biphosphate/Sodium Phosphate 133 ml 08/05/20 10:59 08/05/20 11:49 Sodium Phosphate,[place]-Dibasic 133 Ml Enema MA 133 ml ONCE PRN Administration continued constipation Sucralfate 1 gm 08/06/20 17:00 08/13/20 21:57 Sucralfate 1 Gm Tablet PO 1 gm QID [facility] Administration Verapamil HCl 40 mg 07/26/20 09:00 08/13/20 21:55 Verapamil Hcl 40 Mg Tablet PO 40 mg TID [facility] Administration Protocol Zolpidem Tartrate 5 mg 08/12/20 21:11 08/12/20 21:24 Zolpidem Tartrate 5 Mg Tablet PO 5 mg BEDTIME PRN Administration Insomnia Home Medications Medication Instructions Recorded Confirmed Last Taken Type amitriptyline 1 tab PO BEDTIME 07/26/20 07/26/20 Unknown History atenolol 1 tab PO DAILY 07/26/20 07/26/20 Unknown History clonazepam 1 tab PO BID 07/26/20 07/26/20 Unknown History clonidine HCl 1 tab PO BEDTIME 07/26/20 07/26/20 Unknown History divalproex 1 tab PO BID 07/26/20 07/26/20 Unknown History fluticasone propionate 2 spray INTRANASAL DAILY 07/26/20 07/26/20 Unknown History mirtazapine 1 tab PO BEDTIME 07/26/20 07/26/20 Unknown History risperidone 1 tab PO BID 07/26/20 07/26/20 Unknown History sucralfate 1 tab PO QID 07/26/20 07/26/20 Unknown History tamsulosin 1 cap PO DAILY 07/26/20 07/26/20 Unknown History valproic acid (as sodium salt) 10 ml PO BID 07/26/20 07/26/20 Unknown History verapamil 1 tab PO TID 07/26/20 07/26/20 Unknown History zolpidem [Ambien] 10 mg PO BEDTIME PRN 07/26/20 07/26/20 Unknown History Physical Exam Vital Signs and Narrative: Vital Signs: Last Vital Signs Temp 98.3 F 08/13/20 18:00 Pulse 92 08/13/20 21:56 Resp 18 08/13/20 05:55 BP 138/72 08/13/20 21:56 Pulse Ox 98 08/13/20 05:55 Body Mass Index 24.5 Const: General: cooperative and no acute distress Orientation/consciousness: patient oriented x3 Eyes: General: appearance normal, both eyes and all related structures Resp: Effort & Inspection: normal respiratory effort and able to speak in complete sentences Cardio: Rate: regular rate Rhythm: regular rhythm GI: Palpation (GI): Soft to palpation Auscultation: normal bowel sounds Skin: General skin exam: no rashes or lesions noted Neuro: General: patient oriented x3 Cognition (Neuro): normal cognition Extrem: Other: left shoulder swelling, tenderness, no erythema, warmth. Limited range of motion due to pain General: Yes no pedal edema Results Labs CBC and Chem 7: 08/13/20 19:56 08/13/20 19:56 Labs: Laboratory Results - last 24 hr 08/13/20 08/13/20 19:56 19:56 MCV 98.0 MCH 30.8 MCHC 31.5 RDW 14.3 Plt Count 197 MPV 9.4 Immature Gran % (Auto) 0.4 Neut % (Auto) 69.0 Lymph % (Auto) 21.6 [place] % (Auto) 6.6 Eos % (Auto) 2.2 Baso % (Auto) 0.2 Lymph # (Auto) 1.8 [place] # (Auto) 0.6 Eos # (Auto) 0.2 Baso # (Auto) 0.0 Abs Immat Gran (auto) 0.03 Absolute Neuts (auto) 5.9 Absolute Nucleated RBC 0.000 Nucleated RBC % (auto) 0.0 Anion Gap 14 Estim Creat Clear Calc 97.4 Estimated GFR > 60 Random Glucose 98 Calcium 9.2 Total Creatine Kinase 80 Imaging Radiologist's Impressions: Impressions Humerus CT 08/13/20 21:20 IMPRESSION: Nonspecific subcutaneous soft tissue edema lateral to the left shoulder and proximal humerus. There is no abnormal fluid collection or gas visualized to suspect any drainable abscess or mass. There is no bony abnormality involving the left humerus. Assessment and Plan (1) Left shoulder pain: Status: Acute (2) Drug reaction: Status: Acute This is a 50-year-old male who is currently being managed for psychosis at the [facility] developed arm swelling after pallor. On injection. We are consulted for evaluation. # left shoulder pain - CT of the shoulder shows some edema most likely inflammation with no evidence for abscess, or gas - most likely secondary to injection site reaction, compartment syndrome less likely answers no compartment in that area, no cellulitis as has no evidence of erythema, warmth - will use warm compress - Would prescribe NSAIDs to help reduce inflammation pt developes stomach uposet with NSAID - advise nursing staff to report to me if patient develops worsening pain, paresthesia, and or inability to move arm - monitor # Drug reaction - localized due to paliperidone injection - warm compress Other medical issue management per Psych team Thank you for this consult
[2020-08-14] MEDS: Gabapentin 300 MG CAPSULE PO ×3 (09:19→20:40)
[2020-08-14] MEDS: Finasteride 5 MG TABLET PO (09:19)
[2020-08-14] MEDS: Docusate Sodium 100 MG CAPSULE PO ×2 (09:19→20:40)
[2020-08-14] MEDS: Sucralfate 1 GM TABLET PO ×4 (09:20→20:40)
[2020-08-14] MEDS: HaloperidoL 1 MG TABLET 2 MG PO (09:22)
[2020-08-14] MEDS: Fluticasone Propionate Nasal 16 GM SPRAY 2 SPRAY NOSTRIL-B (09:23)
[2020-08-14] MEDS: clonazePAM 1 MG TABLET PO ×2 (09:24→20:40)
--- NOTE | 2020-08-14 12:19 | HO.PSYCHPN ---
Subjective Subjective Date of Service: 08/14/20 Reason For Visit: SI Subjective Notes: Conditional Voluntary Interim History: The patient reported pain on the site of Invega injection, the hospitalist saw him and apparently, it could be cellulitis, CT scan was negative and no evidence of acute sepsis. Still with pain Medication Compliance: Yes Side effects from medications: No Attending Groups: No Review of Systems Acute medical concerns: Yes Pain on the site of the injection Medical Review of Systems: changed Mental Status Exam Mental Status Exam Patient Appearance: Well Grooomed Patient Orientation: Person, Place, Time and Situation Patient Behavior: Appropriate and Cooperative Mood Description: Calm Affect Description: Withdrawn Patient Cognition Impaired: No Ability to Follow Directions: Good Speech Pattern: Clear Memory Description: Intact Hallucinations: Auditory Delusions: Paranoid Ideation Thought Process: Goal Oriented Thought Content: positive for Circumstantial Judgement: Fair Diagnostics Vital Signs (24Hr): Vital Signs - 24 hr 08/13/20 15:01 08/13/20 18:00 08/13/20 21:54 Temperature 98.3 F Pulse Rate 78 84 92 Respiratory Rate Blood Pressure 99/51 L 127/61 138/72 Pulse Oximetry 08/13/20 21:55 08/13/20 21:56 08/14/20 06:40 Temperature 98.4 F Pulse Rate 92 92 98 Respiratory Rate 18 Blood Pressure 138/72 138/72 126/67 Pulse Oximetry 98 08/14/20 06:45 08/14/20 09:24 08/14/20 09:25 Temperature 98.5 F Pulse Rate 98 99 99 Respiratory Rate 18 Blood Pressure 126/67 112/56 L 112/56 L Pulse Oximetry 98 Body Mass Index 24.5 Labs Results: 08/13/20 19:56 08/13/20 19:56 Labs: Laboratory Results - last 48 hr 08/13/20 08/13/20 19:56 19:56 WBC 8.5 RBC 3.47 L D Hgb 10.7 L D Hct 34.0 L MCV 98.0 MCH 30.8 MCHC 31.5 RDW 14.3 Plt Count 197 MPV 9.4 Immature Gran % (Auto) 0.4 Neut % (Auto) 69.0 Lymph % (Auto) 21.6 [place] % (Auto) 6.6 Eos % (Auto) 2.2 Baso % (Auto) 0.2 Lymph # (Auto) 1.8 [place] # (Auto) 0.6 Eos # (Auto) 0.2 Baso # (Auto) 0.0 Abs Immat Gran (auto) 0.03 Absolute Neuts (auto) 5.9 Absolute Nucleated RBC 0.000 Nucleated RBC % (auto) 0.0 Sodium 140 Potassium 4.3 Chloride 98 Carbon Dioxide 32 H Anion Gap 14 BUN 20 H Creatinine 0.80 Estim Creat Clear Calc 97.4 Estimated GFR > 60 Random Glucose 98 Calcium 9.2 Total Creatine Kinase 80 Imaging Radiology Impressions: ITS Impressions Chest X-Ray 07/26/20 11:31 IMPRESSION: No acute cardiopulmonary process seen. Abdomen/Pelvis CT 08/05/20 02:15 IMPRESSION: No acute findings of the abdomen or pelvis. There is mild fullness of both collecting systems which may be associated with the distended bladder. No bladder wall thickening. Moderate volume of stool throughout the entirety of the colon. Humerus CT 08/13/20 21:20 IMPRESSION: Nonspecific subcutaneous soft tissue edema lateral to the left shoulder and proximal humerus. There is no abnormal fluid collection or gas visualized to suspect any drainable abscess or mass. There is no bony abnormality involving the left humerus. Medications Medications Current Medications Generic Name Dose Route Start Last Admin Trade Name Freq PRN Reason Stop Dose Admin Acetaminophen 650 mg 07/26/20 19:10 08/13/20 21:59 Acetaminophen 325 Mg Tablet PO 650 mg Q6H PRN Administration Headache/Pain Mild Scale (1-3) Al Hydroxide/Mg Hydroxide 30 ml 07/31/20 18:25 08/09/20 04:04 Magnesium Hydrox/Alum Hydrox 30 Ml Oral.Susp PO 30 ml Q4H PRN Administration Heartburn/Nausea Amitriptyline HCl 125 mg 08/13/20 21:00 08/13/20 21:57 Amitriptyline Hcl 25 Mg Tablet PO 125 mg BEDTIME JAMES Administration Atenolol 25 mg 07/26/20 09:00 08/14/20 09:25 Atenolol 25 Mg Tablet PO Not Given DAILY JAMES Protocol Bisacodyl 10 mg 08/05/20 02:00 08/05/20 05:47 Bisacodyl 10 Mg Supp.Rect NM 10 mg BEDTIME PRN Administration Constipation Clonazepam 1 mg 08/05/20 09:15 08/14/20 09:24 Clonazepam 1 Mg Tablet PO 1 mg BID JAMES Administration Clonidine HCl 0.1 mg 07/26/20 21:00 08/13/20 21:54 Clonidine Hcl 0.1 Mg Tablet PO 0.1 mg BEDTIME JAMES Administration Protocol Clonidine HCl 0.1 mg 07/26/20 19:35 08/10/20 01:27 Clonidine Hcl 0.1 Mg Tablet PO 0.1 mg Q4H PRN Administration Opiate Withdrawal Protocol Docusate Sodium 100 mg 08/05/20 09:00 08/14/20 09:19 Docusate Sodium 100 Mg Capsule PO 100 mg BID JAMES Administration Doxazosin Mesylate 8 mg 08/05/20 21:00 08/13/20 21:56 Doxazosin Mesylate 2 Mg Tablet PO 8 mg BEDTIME JAMES Administration Protocol Famotidine 20 mg 07/31/20 18:24 08/10/20 05:21 Famotidine 20 Mg Tablet PO 20 mg BID PRN Administration heartburn Finasteride 5 mg 08/06/20 09:00 08/14/20 09:19 Finasteride 5 Mg Tablet PO 5 mg DAILY JAMES Administration Fluticasone Propionate 2 spray 07/26/20 09:00 08/14/20 09:23 Fluticasone Propionate Nasal 16 Gm [place] NOSTRIL-B 2 spray DAILY JAMES Administration Gabapentin 300 mg 08/10/20 15:00 08/14/20 09:19 Gabapentin 300 Mg Capsule PO 300 mg TID JAMES Administration Haloperidol 2 mg 08/13/20 09:00 08/14/20 09:22 Haloperidol 1 Mg Tablet PO 2 mg DAILY JAMES Administration Haloperidol 5 mg 08/13/20 21:00 08/13/20 21:57 Haloperidol 5 Mg Tablet PO 5 mg BEDTIME JAMES Administration Hydroxyzine HCl 25 mg 07/26/20 19:10 08/12/20 00:14 Hydroxyzine Hcl 25 Mg Tablet PO 25 mg BEDTIME PRN Administration Anxiety Magnesium Hydroxide 30 ml 07/26/20 19:10 08/13/20 22:12 Milk Of Magnesia 30 Ml Oral.Susp PO 30 ml DAILY PRN Administration Constipation Methadone HCl 30 mg 07/31/20 09:00 08/14/20 09:19 Methadone Hcl 1 Mg/0.1 Ml Oral.Conc PO 30 mg DAILY JAMES Administration Mirtazapine 30 mg 08/03/20 21:00 08/13/20 21:56 Mirtazapine 30 Mg Tablet PO 30 mg BEDTIME JAMES Administration Ondansetron HCl 4 mg 07/28/20 19:58 08/08/20 04:58 Ondansetron Odt 4 Mg Tab.Rapdis TRANSLINGU 4 mg Q6H PRN Administration Nausea Senna 8.6 mg 08/06/20 21:00 08/13/20 21:55 Sennosides 8.6 Mg Tablet PO 8.6 mg BEDTIME JAMES Administration Sodium Biphosphate/Sodium Phosphate 133 ml 08/05/20 10:59 08/05/20 11:49 Sodium Phosphate,[place]-Dibasic 133 Ml Enema NM 133 ml ONCE PRN Administration continued constipation Sucralfate 1 gm 08/06/20 17:00 08/14/20 09:20 Sucralfate 1 Gm Tablet PO 1 gm QID [facility] Administration Verapamil HCl 40 mg 07/26/20 09:00 08/14/20 09:24 Verapamil Hcl 40 Mg Tablet PO Not Given TID [facility] Protocol Zolpidem Tartrate 5 mg 08/12/20 21:11 08/12/20 21:24 Zolpidem Tartrate 5 Mg Tablet PO 5 mg BEDTIME PRN Administration Insomnia Allergies Allergies Allergy/AdvReac Type Severity Reaction Status Date / Time trazodone [TRAZODONE] Allergy Severe FACIAL Verified 04/07/20 09:20 SWELLING, swelling cat dander [CATS] Allergy Intermediate FACIAL Verified 04/07/20 09:20 ITCHING doxepin [DOXEPIN] Allergy Intermediate WEIGHT Verified 04/07/20 09:20 GAIN/LEG SWELLING Iodinated Contrast Media Allergy Intermediate ITCHING Verified 04/07/20 09:20 [IV DYE, IODINE CONTAINING CONTRAST ] nitroglycerin [NITROGLYCERIN] Allergy Unknown UNKNOWN Verified 04/07/20 09:20 tramadol [TRAMADOL] Allergy Unknown UNKNOWN, Verified 04/07/20 09:20 dry mouth ibuprofen [From MOTRIN] AdvReac Intermediate GI UPSET Verified 04/07/20 09:20 quetiapine [From SEROQUEL] AdvReac Intermediate FACIAL Verified 04/07/20 09:20 SWELLING aspirin [ASPIRIN] AdvReac Mild Stomach Verified 04/07/20 09:20 Upset Ibuprofen Allergy Unknown stomach Uncoded 04/07/20 09:20 ache IV contrast Allergy Unknown Unknown Uncoded 04/07/20 09:20 Motrin Allergy Unknown stomach Uncoded 04/07/20 09:20 pain Assessment & Plan Assessment & Plan (1) Left shoulder pain: Status: Acute Code(s): M25.512 - Pain in left shoulder (2) Drug reaction: Status: Acute Code(s): T50.905A - Adverse effect of unspecified drugs, medicaments and biological substances, initial encounter Assessment and Plan: This is a 50-year-old male who is currently being managed for psychosis at the [facility] developed arm swelling after pallor. On injection. We are consulted for evaluation. # left shoulder pain - CT of the shoulder shows some edema most likely inflammation with no evidence for abscess, or gas - most likely secondary to injection site reaction, compartment syndrome less likely answers no compartment in that area, no cellulitis as has no evidence of erythema, warmth - will use warm compress - Would prescribe NSAIDs to help reduce inflammation pt developes stomach uposet with NSAID - advise nursing staff to report to me if patient develops worsening pain, paresthesia, and or inability to move arm - monitor I will start at this moment Bactrin DS bid # Drug reaction - localized due to paliperidone injection - warm compress Other medical issue management per Psych team Thank you for this consult Greater than 50% of the session was spent on counseling and/or coordination of care Reason for contiued inpatient stay Substantial Risk for: harm to self, inability to function and med/psych decompensation
[2020-08-14] MEDS: Mirtazapine 30 MG TABLET PO (20:40)
[2020-08-14] MEDS: Zolpidem Tartrate 5 MG TABLET PO (20:40)
[2020-08-14] MEDS: HaloperidoL 5 MG TABLET PO (20:40)
[2020-08-14] MEDS: Milk of Magnesia 30 ML ORAL.SUSP PO (20:40)
[2020-08-14] MEDS: Sennosides 8.6 MG TABLET PO (20:40)
[2020-08-14] MEDS: Acetaminophen 325 MG TABLET 650 MG PO (21:09)
[2020-08-14] MEDS: Doxazosin Mesylate 2 MG TABLET 8 MG PO (22:07)
[2020-08-14] MEDS: Amitriptyline HCl 25 MG TABLET 125 MG PO (22:12)
[2020-08-15] MEDS: hydrOXYzine HCL 25 MG TABLET PO (02:05)
[2020-08-15 06:00] VITALS: BP 111/59; PULSE 108; RESP 18; TEMP 36.7; O2SAT 97
[2020-08-15 08:31] VITALS: BP 111/67; PULSE 100; RESP 16
[2020-08-15] MEDS: Fluticasone Propionate Nasal 16 GM SPRAY 2 SPRAY NOSTRIL-B (08:37)
[2020-08-15] MEDS: Finasteride 5 MG TABLET PO (08:37)
[2020-08-15 08:38] VITALS: BP 111/67; PULSE 100
[2020-08-15] MEDS: HaloperidoL 1 MG TABLET 2 MG PO (08:38)
[2020-08-15] MEDS: VerapamiL HCL 40 MG TABLET PO ×3 (08:38→20:06)
[2020-08-15] MEDS: Gabapentin 300 MG CAPSULE PO ×3 (08:38→20:05)
[2020-08-15] MEDS: atenoloL 25 MG TABLET PO (08:38)
[2020-08-15] MEDS: clonazePAM 1 MG TABLET PO ×2 (08:38→20:06)
[2020-08-15] MEDS: Sucralfate 1 GM TABLET PO ×4 (08:38→20:06)
[2020-08-15] MEDS: Docusate Sodium 100 MG CAPSULE PO ×2 (08:38→20:06)
--- NOTE | 2020-08-15 12:21 | HO.PSYCHPN ---
Subjective Subjective Date of Service: 08/15/20 Reason For Visit: SI Interim History: The patient reported that he has more pain on his shoulder. We started Bactrim yesterday and medicine will follow up today. His voices have improved with Haldol. Medication Compliance: Yes Side effects from medications: No Attending Groups: No Mental Status Exam Mental Status Exam Patient Appearance: Well Grooomed Patient Orientation: Person, Place, Time and Situation Level of Consciousness: Awake Patient Behavior: Appropriate Mood Description: Calm Affect Description: Withdrawn and Appropriate Patient Cognition Impaired: No Ability to Follow Directions: Good Speech Pattern: Clear Memory Description: Intact Hallucinations: Auditory Delusions: Paranoid Ideation Thought Process: Goal Oriented Thought Content: positive for Intact Judgement: Fair Diagnostics Vital Signs (24Hr): Vital Signs - 24 hr 08/14/20 14:34 08/14/20 18:00 08/14/20 22:07 Temperature 97.6 F Pulse Rate 94 75 91 Respiratory Rate Blood Pressure 110/55 L 126/71 102/58 L Pulse Oximetry 98 08/15/20 06:00 08/15/20 08:31 08/15/20 08:38 Temperature 98.0 F Pulse Rate 108 H 100 100 Respiratory Rate 18 16 Blood Pressure 111/59 L 111/67 111/67 Pulse Oximetry 97 Body Mass Index 24.5 Labs Results: 08/13/20 19:56 08/13/20 19:56 Labs: Laboratory Results - last 48 hr 08/13/20 08/13/20 19:56 19:56 WBC 8.5 RBC 3.47 L D Hgb 10.7 L D Hct 34.0 L MCV 98.0 MCH 30.8 MCHC 31.5 RDW 14.3 Plt Count 197 MPV 9.4 Immature Gran % (Auto) 0.4 Neut % (Auto) 69.0 Lymph % (Auto) 21.6 [place] % (Auto) 6.6 Eos % (Auto) 2.2 Baso % (Auto) 0.2 Lymph # (Auto) 1.8 [place] # (Auto) 0.6 Eos # (Auto) 0.2 Baso # (Auto) 0.0 Abs Immat Gran (auto) 0.03 Absolute Neuts (auto) 5.9 Absolute Nucleated RBC 0.000 Nucleated RBC % (auto) 0.0 Sodium 140 Potassium 4.3 Chloride 98 Carbon Dioxide 32 H Anion Gap 14 BUN 20 H Creatinine 0.80 Estim Creat Clear Calc 97.4 Estimated GFR > 60 Random Glucose 98 Calcium 9.2 Total Creatine Kinase 80 Imaging Radiology Impressions: ITS Impressions Chest X-Ray 07/26/20 11:31 IMPRESSION: No acute cardiopulmonary process seen. Abdomen/Pelvis CT 08/05/20 02:15 IMPRESSION: No acute findings of the abdomen or pelvis. There is mild fullness of both collecting systems which may be associated with the distended bladder. No bladder wall thickening. Moderate volume of stool throughout the entirety of the colon. Humerus CT 08/13/20 21:20 IMPRESSION: Nonspecific subcutaneous soft tissue edema lateral to the left shoulder and proximal humerus. There is no abnormal fluid collection or gas visualized to suspect any drainable abscess or mass. There is no bony abnormality involving the left humerus. Medications Medications Current Medications Generic Name Dose Route Start Last Admin Trade Name Freq PRN Reason Stop Dose Admin Acetaminophen 650 mg 07/26/20 19:10 08/14/20 21:09 Acetaminophen 325 Mg Tablet PO 650 mg Q6H PRN Administration Headache/Pain Mild Scale (1-3) Al Hydroxide/Mg Hydroxide 30 ml 07/31/20 18:25 08/09/20 04:04 Magnesium Hydrox/Alum Hydrox 30 Ml Oral.Susp PO 30 ml Q4H PRN Administration Heartburn/Nausea Amitriptyline HCl 125 mg 08/13/20 21:00 08/14/20 22:12 Amitriptyline Hcl 25 Mg Tablet PO 125 mg BEDTIME JAMES Administration Atenolol 25 mg 07/26/20 09:00 08/15/20 08:38 Atenolol 25 Mg Tablet PO 25 mg DAILY JAMES Administration Protocol Bisacodyl 10 mg 08/05/20 02:00 08/05/20 05:47 Bisacodyl 10 Mg Supp.Rect GA 10 mg BEDTIME PRN Administration Constipation Clonazepam 1 mg 08/05/20 09:15 08/15/20 08:38 Clonazepam 1 Mg Tablet PO 1 mg BID JAMES Administration Clonidine HCl 0.1 mg 07/26/20 21:00 08/14/20 20:47 Clonidine Hcl 0.1 Mg Tablet PO Not Given BEDTIME JAMES Protocol Clonidine HCl 0.1 mg 07/26/20 19:35 08/10/20 01:27 Clonidine Hcl 0.1 Mg Tablet PO 0.1 mg Q4H PRN Administration Opiate Withdrawal Protocol Docusate Sodium 100 mg 08/05/20 09:00 08/15/20 08:38 Docusate Sodium 100 Mg Capsule PO 100 mg BID JAMES Administration Doxazosin Mesylate 8 mg 08/05/20 21:00 08/14/20 22:07 Doxazosin Mesylate 2 Mg Tablet PO 8 mg BEDTIME JAMES Administration Protocol Famotidine 20 mg 07/31/20 18:24 08/10/20 05:21 Famotidine 20 Mg Tablet PO 20 mg BID PRN Administration heartburn Finasteride 5 mg 08/06/20 09:00 08/15/20 08:37 Finasteride 5 Mg Tablet PO 5 mg DAILY JAMES Administration Fluticasone Propionate 2 spray 07/26/20 09:00 08/15/20 08:37 Fluticasone Propionate Nasal 16 Gm [place] NOSTRIL-B 2 spray DAILY JAMES Administration Gabapentin 300 mg 08/10/20 15:00 08/15/20 08:38 Gabapentin 300 Mg Capsule PO 300 mg TID JAMES Administration Haloperidol 2 mg 08/13/20 09:00 08/15/20 08:38 Haloperidol 1 Mg Tablet PO 2 mg DAILY JAMES Administration Haloperidol 5 mg 08/13/20 21:00 08/14/20 20:40 Haloperidol 5 Mg Tablet PO 5 mg BEDTIME JAMES Administration Hydroxyzine HCl 25 mg 07/26/20 19:10 08/15/20 02:05 Hydroxyzine Hcl 25 Mg Tablet PO 25 mg BEDTIME PRN Administration Anxiety Magnesium Hydroxide 30 ml 07/26/20 19:10 08/14/20 20:40 Milk Of Magnesia 30 Ml Oral.Susp PO 30 ml DAILY PRN Administration Constipation Methadone HCl 30 mg 07/31/20 09:00 08/15/20 08:37 Methadone Hcl 1 Mg/0.1 Ml Oral.Conc PO 30 mg DAILY JAMES Administration Mirtazapine 30 mg 08/03/20 21:00 08/14/20 20:40 Mirtazapine 30 Mg Tablet PO 30 mg BEDTIME JAMES Administration Ondansetron HCl 4 mg 07/28/20 19:58 08/08/20 04:58 Ondansetron Odt 4 Mg Tab.Rapdis TRANSLINGU 4 mg Q6H PRN Administration Nausea Senna 8.6 mg 08/06/20 21:00 08/14/20 20:40 Sennosides 8.6 Mg Tablet PO 8.6 mg BEDTIME JAMES Administration Sodium Biphosphate/Sodium Phosphate 133 ml 08/05/20 10:59 08/05/20 11:49 Sodium Phosphate,[place]-Dibasic 133 Ml Enema GA 133 ml ONCE PRN Administration continued constipation Sucralfate 1 gm 08/06/20 17:00 08/15/20 08:38 Sucralfate 1 Gm Tablet PO 1 gm QID JAMES Administration Trimethoprim/Sulfamethoxazole 1 tab 08/15/20 10:00 08/15/20 08:38 Sulfamethox/Trimeth 800/160 1 Tab Tablet PO 1 tab Q12H JAMES Administration Verapamil HCl 40 mg 07/26/20 09:00 08/15/20 08:38 Verapamil Hcl 40 Mg Tablet PO 40 mg TID JAMES Administration Protocol Zolpidem Tartrate 5 mg 08/12/20 21:11 08/14/20 20:40 Zolpidem Tartrate 5 Mg Tablet PO 5 mg BEDTIME PRN Administration Insomnia Allergies Allergies Allergy/AdvReac Type Severity Reaction Status Date / Time trazodone [TRAZODONE] Allergy Severe FACIAL Verified 04/07/20 09:20 SWELLING, swelling cat dander [CATS] Allergy Intermediate FACIAL Verified 04/07/20 09:20 ITCHING doxepin [DOXEPIN] Allergy Intermediate WEIGHT Verified 04/07/20 09:20 GAIN/LEG SWELLING Iodinated Contrast Media Allergy Intermediate ITCHING Verified 04/07/20 09:20 [IV DYE, IODINE CONTAINING CONTRAST ] nitroglycerin [NITROGLYCERIN] Allergy Unknown UNKNOWN Verified 04/07/20 09:20 tramadol [TRAMADOL] Allergy Unknown UNKNOWN, Verified 04/07/20 09:20 dry mouth ibuprofen [From MOTRIN] AdvReac Intermediate GI UPSET Verified 04/07/20 09:20 quetiapine [From SEROQUEL] AdvReac Intermediate FACIAL Verified 04/07/20 09:20 SWELLING aspirin [ASPIRIN] AdvReac Mild Stomach Verified 04/07/20 09:20 Upset Ibuprofen Allergy Unknown stomach Uncoded 04/07/20 09:20 ache IV contrast Allergy Unknown Unknown Uncoded 04/07/20 09:20 Motrin Allergy Unknown stomach Uncoded 04/07/20 09:20 pain Assessment & Plan Assessment & Plan (1) Left shoulder pain: Status: Acute Code(s): M25.512 - Pain in left shoulder (2) Drug reaction: Status: Acute Code(s): T50.905A - Adverse effect of unspecified drugs, medicaments and biological substances, initial encounter Assessment and Plan: This is a 50-year-old male who is currently being managed for psychosis at the [facility] developed arm swelling after pallor. On injection. We are consulted for evaluation. # left shoulder pain - CT of the shoulder shows some edema most likely inflammation with no evidence for abscess, or gas - most likely secondary to injection site reaction, compartment syndrome less likely answers no compartment in that area, no cellulitis as has no evidence of erythema, warmth - will use warm compress - Would prescribe NSAIDs to help reduce inflammation pt developes stomach uposet with NSAID - advise nursing staff to report to me if patient develops worsening pain, paresthesia, and or inability to move arm - monitor I will start at this moment Bactrin DS bid # Drug reaction - localized due to paliperidone injection - warm compress Other medical issue management per Psych team Thank you for this consult Greater than 50% of the session was spent on counseling and/or coordination of care Reason for contiued inpatient stay Substantial Risk for: harm to self and med/psych decompensation
[2020-08-15 14:10] VITALS: BP 110/62; PULSE 78
[2020-08-15] MEDS: Acetaminophen 325 MG TABLET 650 MG PO (16:14)
[2020-08-15] MEDS: Milk of Magnesia 30 ML ORAL.SUSP PO (16:14)
[2020-08-15 19:45] VITALS: BP 108/61; PULSE 77; RESP 16; TEMP 36.2; O2SAT 97
[2020-08-15] MEDS: HaloperidoL 5 MG TABLET PO (20:05)
[2020-08-15] MEDS: Amitriptyline HCl 25 MG TABLET 125 MG PO (20:05)
[2020-08-15 20:06] VITALS: BP 108/61
[2020-08-15] MEDS: Sennosides 8.6 MG TABLET PO (20:06)
[2020-08-15] MEDS: Doxazosin Mesylate 2 MG TABLET 8 MG PO (20:06)
[2020-08-15] MEDS: Mirtazapine 30 MG TABLET PO (20:06)
[2020-08-15] MEDS: Zolpidem Tartrate 5 MG TABLET PO (20:12)
[2020-08-16] MEDS: hydrOXYzine HCL 25 MG TABLET PO (02:26)
[2020-08-16 06:00] VITALS: BP 119/58; PULSE 80; RESP 18; TEMP 36.9; O2SAT 98
[2020-08-16 08:57] VITALS: BP 132/72; PULSE 106
[2020-08-16] MEDS: Sucralfate 1 GM TABLET PO ×4 (08:57→20:14)
[2020-08-16] MEDS: Finasteride 5 MG TABLET PO (08:57)
[2020-08-16] MEDS: HaloperidoL 1 MG TABLET 2 MG PO (08:57)
[2020-08-16] MEDS: atenoloL 25 MG TABLET PO (08:57)
[2020-08-16] MEDS: Gabapentin 300 MG CAPSULE PO ×3 (08:57→20:13)
[2020-08-16] MEDS: clonazePAM 1 MG TABLET PO ×2 (08:57→20:14)
[2020-08-16] MEDS: VerapamiL HCL 40 MG TABLET PO ×3 (08:58→20:14)
[2020-08-16] MEDS: Docusate Sodium 100 MG CAPSULE PO ×2 (08:58→20:13)
[2020-08-16 09:53] VITALS: BMI 25.4
--- NOTE | 2020-08-16 12:05 | HO.PSYCHPN ---
Subjective Subjective Date of Service: 08/16/20 Reason For Visit: SI Interim History: The patient reported sporadic auditory hallucinations, mostly at night. We discussed options and he agreed to change Haldol all at night. His cellulitis is improving slowly. Medication Compliance: Yes Side effects from medications: No Attending Groups: No Mental Status Exam Mental Status Exam Patient Appearance: Disheveled Patient Orientation: Person, Place, Time and Situation Level of Consciousness: Awake Patient Behavior: Appropriate Mood Description: Calm Affect Description: Calm Patient Cognition Impaired: No Ability to Follow Directions: Good Speech Pattern: Clear Memory Description: Intact Hallucinations: Auditory Delusions: Paranoid Ideation Thought Process: Goal Oriented Thought Content: positive for Intact Judgement: Fair Diagnostics Vital Signs (24Hr): Vital Signs - 24 hr 08/15/20 14:10 08/15/20 19:45 08/15/20 20:06 Temperature 97.1 F Pulse Rate 78 77 Respiratory Rate 16 Blood Pressure 110/62 108/61 108/61 Pulse Oximetry 97 08/16/20 06:00 08/16/20 08:57 Temperature 98.4 F Pulse Rate 80 106 H Respiratory Rate 18 Blood Pressure 119/58 L 132/72 Pulse Oximetry 98 Body Mass Index 25.4 Labs Results: 08/13/20 19:56 08/13/20 19:56 Imaging Radiology Impressions: ITS Impressions Chest X-Ray 07/26/20 11:31 IMPRESSION: No acute cardiopulmonary process seen. Abdomen/Pelvis CT 08/05/20 02:15 IMPRESSION: No acute findings of the abdomen or pelvis. There is mild fullness of both collecting systems which may be associated with the distended bladder. No bladder wall thickening. Moderate volume of stool throughout the entirety of the colon. Humerus CT 08/13/20 21:20 IMPRESSION: Nonspecific subcutaneous soft tissue edema lateral to the left shoulder and proximal humerus. There is no abnormal fluid collection or gas visualized to suspect any drainable abscess or mass. There is no bony abnormality involving the left humerus. Medications Medications Current Medications Generic Name Dose Route Start Last Admin Trade Name Freq PRN Reason Stop Dose Admin Acetaminophen 650 mg 07/26/20 19:10 08/15/20 16:14 Acetaminophen 325 Mg Tablet PO 650 mg Q6H PRN Administration Headache/Pain Mild Scale (1-3) Al Hydroxide/Mg Hydroxide 30 ml 07/31/20 18:25 08/09/20 04:04 Magnesium Hydrox/Alum Hydrox 30 Ml Oral.Susp PO 30 ml Q4H PRN Administration Heartburn/Nausea Amitriptyline HCl 125 mg 08/13/20 21:00 08/15/20 20:05 Amitriptyline Hcl 25 Mg Tablet PO 125 mg BEDTIME JAMES Administration Atenolol 25 mg 07/26/20 09:00 08/16/20 08:57 Atenolol 25 Mg Tablet PO 25 mg DAILY JAMES Administration Protocol Bisacodyl 10 mg 08/05/20 02:00 08/05/20 05:47 Bisacodyl 10 Mg Supp.Rect SD 10 mg BEDTIME PRN Administration Constipation Clonazepam 1 mg 08/05/20 09:15 08/16/20 08:57 Clonazepam 1 Mg Tablet PO 1 mg BID JAMES Administration Clonidine HCl 0.1 mg 07/26/20 21:00 08/15/20 20:05 Clonidine Hcl 0.1 Mg Tablet PO Not Given BEDTIME JAMES Protocol Clonidine HCl 0.1 mg 07/26/20 19:35 08/10/20 01:27 Clonidine Hcl 0.1 Mg Tablet PO 0.1 mg Q4H PRN Administration Opiate Withdrawal Protocol Docusate Sodium 100 mg 08/05/20 09:00 08/16/20 08:58 Docusate Sodium 100 Mg Capsule PO 100 mg BID JAMES Administration Doxazosin Mesylate 8 mg 08/05/20 21:00 08/15/20 20:06 Doxazosin Mesylate 2 Mg Tablet PO 8 mg BEDTIME JAMES Administration Protocol Famotidine 20 mg 07/31/20 18:24 08/10/20 05:21 Famotidine 20 Mg Tablet PO 20 mg BID PRN Administration heartburn Finasteride 5 mg 08/06/20 09:00 08/16/20 08:57 Finasteride 5 Mg Tablet PO 5 mg DAILY JAMES Administration Fluticasone Propionate 2 spray 07/26/20 09:00 08/16/20 08:59 Fluticasone Propionate Nasal 16 Gm [place] NOSTRIL-B Not Given DAILY JAMES Gabapentin 300 mg 08/10/20 15:00 08/16/20 08:57 Gabapentin 300 Mg Capsule PO 300 mg TID JAMES Administration Haloperidol 2 mg 08/13/20 09:00 08/16/20 08:57 Haloperidol 1 Mg Tablet PO 2 mg DAILY JAMES Administration Haloperidol 5 mg 08/13/20 21:00 08/15/20 20:05 Haloperidol 5 Mg Tablet PO 5 mg BEDTIME JAMES Administration Hydroxyzine HCl 25 mg 07/26/20 19:10 08/16/20 02:26 Hydroxyzine Hcl 25 Mg Tablet PO 25 mg BEDTIME PRN Administration Anxiety Magnesium Hydroxide 30 ml 07/26/20 19:10 08/15/20 16:14 Milk Of Magnesia 30 Ml Oral.Susp PO 30 ml DAILY PRN Administration Constipation Methadone HCl 30 mg 07/31/20 09:00 08/16/20 10:06 Methadone Hcl 1 Mg/0.1 Ml Oral.Conc PO 30 mg DAILY JAMES Administration Mirtazapine 30 mg 08/03/20 21:00 08/15/20 20:06 Mirtazapine 30 Mg Tablet PO 30 mg BEDTIME JAMES Administration Ondansetron HCl 4 mg 07/28/20 19:58 08/08/20 04:58 Ondansetron Odt 4 Mg Tab.Rapdis TRANSLINGU 4 mg Q6H PRN Administration Nausea Senna 8.6 mg 08/06/20 21:00 08/15/20 20:06 Sennosides 8.6 Mg Tablet PO 8.6 mg BEDTIME JAMES Administration Sodium Biphosphate/Sodium Phosphate 133 ml 08/05/20 10:59 08/05/20 11:49 Sodium Phosphate,[place]-Dibasic 133 Ml Enema [place] 133 ml ONCE PRN Administration continued constipation Sucralfate 1 gm 08/06/20 17:00 08/16/20 08:57 Sucralfate 1 Gm Tablet PO 1 gm QID JAMES Administration Trimethoprim/Sulfamethoxazole 1 tab 08/15/20 10:00 08/16/20 08:58 Sulfamethox/Trimeth 800/160 1 Tab Tablet PO 1 tab Q12H JAMES Administration Verapamil HCl 40 mg 07/26/20 09:00 08/16/20 08:58 Verapamil Hcl 40 Mg Tablet PO 40 mg TID JAMES Administration Protocol Zolpidem Tartrate 5 mg 08/12/20 21:11 08/15/20 20:12 Zolpidem Tartrate 5 Mg Tablet PO 5 mg BEDTIME PRN Administration Insomnia Allergies Allergies Allergy/AdvReac Type Severity Reaction Status Date / Time trazodone [TRAZODONE] Allergy Severe FACIAL Verified 04/07/20 09:20 SWELLING, swelling cat dander [CATS] Allergy Intermediate FACIAL Verified 04/07/20 09:20 ITCHING doxepin [DOXEPIN] Allergy Intermediate WEIGHT Verified 04/07/20 09:20 GAIN/LEG SWELLING Iodinated Contrast Media Allergy Intermediate ITCHING Verified 04/07/20 09:20 [IV DYE, IODINE CONTAINING CONTRAST ] nitroglycerin [NITROGLYCERIN] Allergy Unknown UNKNOWN Verified 04/07/20 09:20 tramadol [TRAMADOL] Allergy Unknown UNKNOWN, Verified 04/07/20 09:20 dry mouth ibuprofen [From MOTRIN] AdvReac Intermediate GI UPSET Verified 04/07/20 09:20 quetiapine [From SEROQUEL] AdvReac Intermediate FACIAL Verified 04/07/20 09:20 SWELLING aspirin [ASPIRIN] AdvReac Mild Stomach Verified 04/07/20 09:20 Upset Ibuprofen Allergy Unknown stomach Uncoded 04/07/20 09:20 ache IV contrast Allergy Unknown Unknown Uncoded 04/07/20 09:20 Motrin Allergy Unknown stomach Uncoded 04/07/20 09:20 pain Assessment & Plan Assessment & Plan (1) Left shoulder pain: Status: Acute Code(s): M25.512 - Pain in left shoulder (2) Drug reaction: Status: Acute Code(s): T50.905A - Adverse effect of unspecified drugs, medicaments and biological substances, initial encounter Assessment and Plan: This is a 50-year-old male who is currently being managed for psychosis at the [facility] developed arm swelling after pallor. On injection. We are consulted for evaluation. # left shoulder pain - CT of the shoulder shows some edema most likely inflammation with no evidence for abscess, or gas - most likely secondary to injection site reaction, compartment syndrome less likely answers no compartment in that area, no cellulitis as has no evidence of erythema, warmth - will use warm compress - Would prescribe NSAIDs to help reduce inflammation pt developes stomach uposet with NSAID - advise nursing staff to report to me if patient develops worsening pain, paresthesia, and or inability to move arm - monitor I will start at this moment Bactrin DS bid # Drug reaction - localized due to paliperidone injection - warm compress Other medical issue management per Psych team Thank you for this consult Greater than 50% of the session was spent on counseling and/or coordination of care Reason for contiued inpatient stay Substantial Risk for: harm to self and rapid decompensation
[2020-08-16 14:14] VITALS: BP 119/71; PULSE 85
[2020-08-16] MEDS: Famotidine 20 MG TABLET PO (14:31)
[2020-08-16 15:45] VITALS: BP 107/57; PULSE 83; TEMP 36.4
[2020-08-16 20:13] VITALS: BP 112/74; PULSE 92
[2020-08-16] MEDS: Doxazosin Mesylate 2 MG TABLET 8 MG PO (20:13)
[2020-08-16] MEDS: HaloperidoL 5 MG TABLET PO (20:13)
[2020-08-16 20:14] VITALS: BP 112/74; PULSE 92
[2020-08-16] MEDS: Amitriptyline HCl 25 MG TABLET 125 MG PO (20:14)
[2020-08-16] MEDS: Mirtazapine 30 MG TABLET PO (20:14)
[2020-08-16] MEDS: Zolpidem Tartrate 5 MG TABLET PO (21:15)
[2020-08-17] VITALS (7 sets, daily range): BP systolic 107–134; BP diastolic 56–74; PULSE 81–93; RESP 16; TEMP 36.5–36.6; O2SAT 95
[2020-08-17] MEDS: hydrOXYzine HCL 25 MG TABLET PO (01:24)
[2020-08-17] MEDS: clonazePAM 1 MG TABLET PO ×2 (08:21→20:12)
[2020-08-17] MEDS: Gabapentin 300 MG CAPSULE PO ×3 (08:21→20:12)
[2020-08-17] MEDS: VerapamiL HCL 40 MG TABLET PO ×2 (08:21→14:09)
[2020-08-17] MEDS: Finasteride 5 MG TABLET PO (08:21)
[2020-08-17] MEDS: HaloperidoL 1 MG TABLET 2 MG PO (08:22)
[2020-08-17] MEDS: Docusate Sodium 100 MG CAPSULE PO ×2 (08:22→20:12)
[2020-08-17] MEDS: Sucralfate 1 GM TABLET PO ×4 (08:22→20:12)
[2020-08-17] MEDS: atenoloL 25 MG TABLET PO (08:22)
--- NOTE | 2020-08-17 12:19 | P.PNPSI_ITS ---
Subjective Subjective Date of Service: 08/17/20 Reason For Visit: SI Subjective Notes: Conditional Voluntary Interim History: The patient denies new symptoms, his depression is starting to improve but still with some AH mostly at night. His cellulitis is improving with ATB. Medication Compliance: Yes Side effects from medications: No Attending Groups: No Mental Status Exam Mental Status Exam Patient Appearance: Disheveled Patient Orientation: Person, Place, Time and Situation Level of Consciousness: Awake Patient Behavior: Appropriate Mood Description: Calm Affect Description: Withdrawn Patient Cognition Impaired: No Ability to Follow Directions: Good Speech Pattern: Clear Memory Description: Intact Hallucinations: None Delusions: Not Present Thought Process: Goal Oriented Thought Content: positive for Intact Judgement: Fair Diagnostics Vital Signs (24Hr): Vital Signs - 24 hr 08/16/20 14:14 08/16/20 15:45 08/16/20 20:13 Temperature 97.5 F Pulse Rate 85 83 92 Respiratory Rate Blood Pressure 119/71 107/57 L 112/74 Pulse Oximetry 08/16/20 20:14 08/17/20 05:55 08/17/20 08:21 Temperature 97.8 F Pulse Rate 92 93 91 Respiratory Rate 16 Blood Pressure 112/74 124/65 128/74 Pulse Oximetry 95 Body Mass Index 25.4 Labs Results: 08/13/20 19:56 08/13/20 19:56 Imaging Radiology Impressions: ITS Impressions Chest X-Ray 07/26/20 11:31 IMPRESSION: No acute cardiopulmonary process seen. Abdomen/Pelvis CT 08/05/20 02:15 IMPRESSION: No acute findings of the abdomen or pelvis. There is mild fullness of both collecting systems which may be associated with the distended bladder. No bladder wall thickening. Moderate volume of stool throughout the entirety of the colon. Humerus CT 08/13/20 21:20 IMPRESSION: Nonspecific subcutaneous soft tissue edema lateral to the left shoulder and proximal humerus. There is no abnormal fluid collection or gas visualized to suspect any drainable abscess or mass. There is no bony abnormality involving the left humerus. Medications Medications Current Medications Generic Name Dose Route Start Last Admin Trade Name Freq PRN Reason Stop Dose Admin Acetaminophen 650 mg 07/26/20 19:10 08/15/20 16:14 Acetaminophen 325 Mg Tablet PO 650 mg Q6H PRN Administration Headache/Pain Mild Scale (1-3) Al Hydroxide/Mg Hydroxide 30 ml 07/31/20 18:25 08/09/20 04:04 Magnesium Hydrox/Alum Hydrox 30 Ml Oral.Susp PO 30 ml Q4H PRN Administration Heartburn/Nausea Amitriptyline HCl 125 mg 08/13/20 21:00 08/16/20 20:14 Amitriptyline Hcl 25 Mg Tablet PO 125 mg BEDTIME JAMES Administration Atenolol 25 mg 07/26/20 09:00 08/17/20 08:22 Atenolol 25 Mg Tablet PO 25 mg DAILY JAMES Administration Protocol Bisacodyl 10 mg 08/05/20 02:00 08/05/20 05:47 Bisacodyl 10 Mg Supp.Rect MO 10 mg BEDTIME PRN Administration Constipation Clonazepam 1 mg 08/05/20 09:15 08/17/20 08:21 Clonazepam 1 Mg Tablet PO 1 mg BID JAMES Administration Clonidine HCl 0.1 mg 07/26/20 21:00 08/16/20 20:15 Clonidine Hcl 0.1 Mg Tablet PO Not Given BEDTIME JAMES Protocol Clonidine HCl 0.1 mg 07/26/20 19:35 08/10/20 01:27 Clonidine Hcl 0.1 Mg Tablet PO 0.1 mg Q4H PRN Administration Opiate Withdrawal Protocol Docusate Sodium 100 mg 08/05/20 09:00 08/17/20 08:22 Docusate Sodium 100 Mg Capsule PO 100 mg BID JAMES Administration Doxazosin Mesylate 8 mg 08/05/20 21:00 08/16/20 20:13 Doxazosin Mesylate 2 Mg Tablet PO 8 mg BEDTIME JAMES Administration Protocol Famotidine 20 mg 07/31/20 18:24 08/16/20 14:31 Famotidine 20 Mg Tablet PO 20 mg BID PRN Administration heartburn Finasteride 5 mg 08/06/20 09:00 08/17/20 08:21 Finasteride 5 Mg Tablet PO 5 mg DAILY JAMES Administration Fluticasone Propionate 2 spray 07/26/20 09:00 08/17/20 08:23 Fluticasone Propionate Nasal 16 Gm [place] NOSTRIL-B Not Given DAILY JAMES Gabapentin 300 mg 08/10/20 15:00 08/17/20 08:21 Gabapentin 300 Mg Capsule PO 300 mg TID JAMES Administration Haloperidol 2 mg 08/13/20 09:00 08/17/20 08:22 Haloperidol 1 Mg Tablet PO 2 mg DAILY JAMES Administration Haloperidol 5 mg 08/13/20 21:00 08/16/20 20:13 Haloperidol 5 Mg Tablet PO 5 mg BEDTIME JAMES Administration Hydroxyzine HCl 25 mg 07/26/20 19:10 08/17/20 01:24 Hydroxyzine Hcl 25 Mg Tablet PO 25 mg BEDTIME PRN Administration Anxiety Magnesium Hydroxide 30 ml 07/26/20 19:10 08/15/20 16:14 Milk Of Magnesia 30 Ml Oral.Susp PO 30 ml DAILY PRN Administration Constipation Methadone HCl 30 mg 07/31/20 09:00 08/17/20 08:21 Methadone Hcl 1 Mg/0.1 Ml Oral.Conc PO 30 mg DAILY JAMES Administration Mirtazapine 30 mg 08/03/20 21:00 08/16/20 20:14 Mirtazapine 30 Mg Tablet PO 30 mg BEDTIME JAMES Administration Ondansetron HCl 4 mg 07/28/20 19:58 08/08/20 04:58 Ondansetron Odt 4 Mg Tab.Rapdis TRANSLINGU 4 mg Q6H PRN Administration Nausea Senna 8.6 mg 08/06/20 21:00 08/16/20 20:17 Sennosides 8.6 Mg Tablet PO Not Given BEDTIME [facility] Sodium Biphosphate/Sodium Phosphate 133 ml 08/05/20 10:59 08/05/20 11:49 Sodium Phosphate,[place]-Dibasic 133 Ml Enema MO 133 ml ONCE PRN Administration continued constipation Sucralfate 1 gm 08/06/20 17:00 08/17/20 08:22 Sucralfate 1 Gm Tablet PO 1 gm QID JAMES Administration Trimethoprim/Sulfamethoxazole 1 tab 08/15/20 10:00 08/17/20 08:22 Sulfamethox/Trimeth 800/160 1 Tab Tablet PO 1 tab Q12H JAMES Administration Verapamil HCl 40 mg 07/26/20 09:00 08/17/20 08:21 Verapamil Hcl 40 Mg Tablet PO 40 mg TID JAMES Administration Protocol Zolpidem Tartrate 5 mg 08/12/20 21:11 08/16/20 21:15 Zolpidem Tartrate 5 Mg Tablet PO 5 mg BEDTIME PRN Administration Insomnia Allergies Allergies Allergy/AdvReac Type Severity Reaction Status Date / Time trazodone [TRAZODONE] Allergy Severe FACIAL Verified 04/07/20 09:20 SWELLING, swelling cat dander [CATS] Allergy Intermediate FACIAL Verified 04/07/20 09:20 ITCHING doxepin [DOXEPIN] Allergy Intermediate WEIGHT Verified 04/07/20 09:20 GAIN/LEG SWELLING Iodinated Contrast Media Allergy Intermediate ITCHING Verified 04/07/20 09:20 [IV DYE, IODINE CONTAINING CONTRAST ] nitroglycerin [NITROGLYCERIN] Allergy Unknown UNKNOWN Verified 04/07/20 09:20 tramadol [TRAMADOL] Allergy Unknown UNKNOWN, Verified 04/07/20 09:20 dry mouth ibuprofen [From MOTRIN] AdvReac Intermediate GI UPSET Verified 04/07/20 09:20 quetiapine [From SEROQUEL] AdvReac Intermediate FACIAL Verified 04/07/20 09:20 SWELLING aspirin [ASPIRIN] AdvReac Mild Stomach Verified 04/07/20 09:20 Upset Ibuprofen Allergy Unknown stomach Uncoded 04/07/20 09:20 ache IV contrast Allergy Unknown Unknown Uncoded 04/07/20 09:20 Motrin Allergy Unknown stomach Uncoded 04/07/20 09:20 pain Assessment & Plan Assessment & Plan (1) Left shoulder pain: Status: Acute Code(s): M25.512 - Pain in left shoulder (2) Drug reaction: Status: Acute Code(s): T50.905A - Adverse effect of unspecified drugs, medicaments and biological substances, initial encounter Assessment and Plan: This is a 50-year-old male who is currently being managed for psychosis at the [facility] developed arm swelling after pallor. On injection. We are consulted for evaluation. # left shoulder pain - CT of the shoulder shows some edema most likely inflammation with no evidence for abscess, or gas - most likely secondary to injection site reaction, compartment syndrome less likely answers no compartment in that area, no cellulitis as has no evidence of erythema, warmth - will use warm compress - Would prescribe NSAIDs to help reduce inflammation pt developes stomach uposet with NSAID - advise nursing staff to report to me if patient develops worsening pain, paresthesia, and or inability to move arm - monitor I will start at this moment Bactrin DS bid # Drug reaction - localized due to paliperidone injection - warm compress #Psychosis - Change all Haldol at HS up to 10 mg. Other medical issue management per Psych team Thank you for this consult Greater than 50% of the session was spent on counseling and/or coordination of care Reason for contiued inpatient stay Substantial Risk for: harm to self, rapid decompensation and med/psych decompensation
[2020-08-17] MEDS: Sennosides 8.6 MG TABLET PO (20:10)
[2020-08-17] MEDS: Amitriptyline HCl 25 MG TABLET 125 MG PO (20:10)
[2020-08-17] MEDS: HaloperidoL 5 MG TABLET 10 MG PO (20:11)
[2020-08-17] MEDS: Mirtazapine 30 MG TABLET PO (20:12)
[2020-08-18 05:53] VITALS: BP 106/51; PULSE 84; RESP 16; TEMP 36.8; O2SAT 95
[2020-08-18 08:35] VITALS: BP 125/69; PULSE 93
[2020-08-18] MEDS: Finasteride 5 MG TABLET PO (08:35)
[2020-08-18] MEDS: Docusate Sodium 100 MG CAPSULE PO ×2 (08:35→20:04)
[2020-08-18] MEDS: VerapamiL HCL 40 MG TABLET PO ×3 (08:35→20:04)
[2020-08-18] MEDS: Sucralfate 1 GM TABLET PO ×4 (08:35→20:04)
[2020-08-18] MEDS: clonazePAM 1 MG TABLET PO (08:35)
[2020-08-18] MEDS: atenoloL 25 MG TABLET PO (08:35)
[2020-08-18] MEDS: Gabapentin 300 MG CAPSULE PO ×3 (08:36→20:05)
--- NOTE | 2020-08-18 10:19 | HO.PSYCHPN ---
Subjective Subjective Date of Service: 08/19/20 Reason For Visit: SI Interim History: Pt reports that he is doing so,so. He reports overall he notes improvement in symptoms of depression. He does report AH but states that is mostly mumbles. His left deltoid, significantly less swollen- on bactrim, no systemic s/s of infection, afebrile, although he continues to endorse some pain. He denies SI/HI. He reports he is turning and tossing at night but then able to fall asleep. No behavioral concern. MSE Appearance: casually groomed, fair hygiene, in NAD Behavior: calm, cooperative Psychomotor: no agitation or retardation noted Speech: clear, normal rate/rhythm/volume, spontaneous TP: linear TC: no signs of psychosis, looking forward to go to program Mood: so, so Affect:congruent, brightens at times SI:none HI:none AH/VH:less AH, mumbles Delusions:no overt delusional content reported Insight/judgment:fair x 2. Memory/cog: alert, oriented x 3. grossly intact but not formally tested. Review of Systems Review of Systems Yes all other systems are reviewed and are negative Constitutional: Reports as per HPI and Reports poor appetite Reports dysphagia and Reports odynophagia Gastrointestinal: Reports dysphagia, Reports dyspepsia, Reports heartburn and Reports odynophagia Musculoskeletal: Reports myalgias Diagnostics Vital Signs (24Hr): Vital Signs - 24 hr 08/18/20 14:15 08/18/20 16:10 08/18/20 20:04 Temperature 98 F Pulse Rate 74 80 88 Respiratory Rate Blood Pressure 125/65 120/60 128/62 Pulse Oximetry 08/19/20 06:00 08/19/20 08:11 Temperature 97.9 F Pulse Rate 75 86 Respiratory Rate 16 Blood Pressure 110/68 117/70 Pulse Oximetry 95 Body Mass Index 25.4 Labs Results: 08/13/20 19:56 08/13/20 19:56 Imaging Radiology Impressions: ITS Impressions Chest X-Ray 07/26/20 11:31 IMPRESSION: No acute cardiopulmonary process seen. Abdomen/Pelvis CT 08/05/20 02:15 IMPRESSION: No acute findings of the abdomen or pelvis. There is mild fullness of both collecting systems which may be associated with the distended bladder. No bladder wall thickening. Moderate volume of stool throughout the entirety of the colon. Humerus CT 08/13/20 21:20 IMPRESSION: Nonspecific subcutaneous soft tissue edema lateral to the left shoulder and proximal humerus. There is no abnormal fluid collection or gas visualized to suspect any drainable abscess or mass. There is no bony abnormality involving the left humerus. Medications Medications Current Medications Generic Name Dose Route Start Last Admin Trade Name Freq PRN Reason Stop Dose Admin Acetaminophen 650 mg 07/26/20 19:10 08/15/20 16:14 Acetaminophen 325 Mg Tablet PO 650 mg Q6H PRN Administration Headache/Pain Mild Scale (1-3) Al Hydroxide/Mg Hydroxide 30 ml 07/31/20 18:25 08/09/20 04:04 Magnesium Hydrox/Alum Hydrox 30 Ml Oral.Susp PO 30 ml Q4H PRN Administration Heartburn/Nausea Amitriptyline HCl 125 mg 08/13/20 21:00 08/18/20 20:05 Amitriptyline Hcl 25 Mg Tablet PO 125 mg BEDTIME JAMES Administration Atenolol 25 mg 07/26/20 09:00 08/19/20 08:11 Atenolol 25 Mg Tablet PO 25 mg DAILY JAMES Administration Protocol Bisacodyl 10 mg 08/05/20 02:00 08/05/20 05:47 Bisacodyl [address] 10 mg BEDTIME PRN Administration Constipation Clonidine HCl 0.1 mg 07/26/20 21:00 08/18/20 19:56 Clonidine Hcl 0.1 Mg Tablet PO Not Given BEDTIME JAMES Protocol Clonidine HCl 0.1 mg 07/26/20 19:35 08/10/20 01:27 Clonidine Hcl 0.1 Mg Tablet PO 0.1 mg Q4H PRN Administration Opiate Withdrawal Protocol Docusate Sodium 100 mg 08/05/20 09:00 08/19/20 08:11 Docusate Sodium 100 Mg Capsule PO 100 mg BID JAMES Administration Doxazosin Mesylate 8 mg 08/05/20 21:00 08/18/20 20:04 Doxazosin Mesylate 2 Mg Tablet PO 8 mg BEDTIME JAMES Administration Protocol Famotidine 20 mg 07/31/20 18:24 08/16/20 14:31 Famotidine 20 Mg Tablet PO 20 mg BID PRN Administration heartburn Finasteride 5 mg 08/06/20 09:00 08/19/20 08:10 Finasteride 5 Mg Tablet PO 5 mg DAILY JAMES Administration Fluticasone Propionate 2 spray 07/26/20 09:00 08/19/20 08:15 Fluticasone Propionate Nasal 16 Gm [place] NOSTRIL-B Not Given DAILY JAMES Gabapentin 300 mg 08/10/20 15:00 08/19/20 08:11 Gabapentin 300 Mg Capsule PO 300 mg TID JAMES Administration Haloperidol 10 mg 08/17/20 21:00 08/18/20 20:05 Haloperidol 5 Mg Tablet PO 10 mg BEDTIME JAMES Administration Hydroxyzine HCl 25 mg 07/26/20 19:10 08/19/20 00:25 Hydroxyzine Hcl 25 Mg Tablet PO 25 mg BEDTIME PRN Administration Anxiety Magnesium Hydroxide 30 ml 07/26/20 19:10 08/15/20 16:14 Milk Of Magnesia 30 Ml Oral.Susp PO 30 ml DAILY PRN Administration Constipation Methadone HCl 30 mg 07/31/20 09:00 08/18/20 08:35 Methadone Hcl 1 Mg/0.1 Ml Oral.Conc PO 30 mg DAILY JAMES Administration Mirtazapine 30 mg 08/03/20 21:00 08/18/20 20:05 Mirtazapine 30 Mg Tablet PO 30 mg BEDTIME JAMES Administration Ondansetron HCl 4 mg 07/28/20 19:58 08/08/20 04:58 Ondansetron Odt 4 Mg Tab.Rapdis TRANSLINGU 4 mg Q6H PRN Administration Nausea Senna 8.6 mg 08/06/20 21:00 08/18/20 20:04 Sennosides 8.6 Mg Tablet PO 8.6 mg BEDTIME JAMES Administration Sodium Biphosphate/Sodium Phosphate 133 ml 08/05/20 10:59 08/05/20 11:49 Sodium Phosphate,[place]-Dibasic [address] 133 ml ONCE PRN Administration continued constipation Sucralfate 1 gm 08/06/20 17:00 08/19/20 08:11 Sucralfate 1 Gm Tablet PO 1 gm QID JAMES Administration Trimethoprim/Sulfamethoxazole 1 tab 08/15/20 10:00 08/18/20 20:53 Sulfamethox/Trimeth 800/160 1 Tab Tablet PO 1 tab Q12H JAMES Administration Verapamil HCl 40 mg 07/26/20 09:00 08/19/20 08:11 Verapamil Hcl 40 Mg Tablet PO 40 mg TID JAMES Administration Protocol Zolpidem Tartrate 5 mg 08/12/20 21:11 08/18/20 20:25 Zolpidem Tartrate 5 Mg Tablet PO 5 mg BEDTIME PRN Administration Insomnia Allergies Allergies Allergy/AdvReac Type Severity Reaction Status Date / Time trazodone [TRAZODONE] Allergy Severe FACIAL Verified 04/07/20 09:20 SWELLING, swelling cat dander [CATS] Allergy Intermediate FACIAL Verified 04/07/20 09:20 ITCHING doxepin [DOXEPIN] Allergy Intermediate WEIGHT Verified 04/07/20 09:20 GAIN/LEG SWELLING Iodinated Contrast Media Allergy Intermediate ITCHING Verified 04/07/20 09:20 [IV DYE, IODINE CONTAINING CONTRAST ] nitroglycerin [NITROGLYCERIN] Allergy Unknown UNKNOWN Verified 04/07/20 09:20 tramadol [TRAMADOL] Allergy Unknown UNKNOWN, Verified 04/07/20 09:20 dry mouth ibuprofen [From MOTRIN] AdvReac Intermediate GI UPSET Verified 04/07/20 09:20 quetiapine [From SEROQUEL] AdvReac Intermediate FACIAL Verified 04/07/20 09:20 SWELLING aspirin [ASPIRIN] AdvReac Mild Stomach Verified 04/07/20 09:20 Upset Ibuprofen Allergy Unknown stomach Uncoded 04/07/20 09:20 ache IV contrast Allergy Unknown Unknown Uncoded 04/07/20 09:20 Motrin Allergy Unknown stomach Uncoded 04/07/20 09:20 pain Assessment & Plan Assessment & Plan (1) Left shoulder pain: Status: Acute Code(s): M25.512 - Pain in left shoulder (2) Drug reaction: Status: Acute Code(s): T50.905A - Adverse effect of unspecified drugs, medicaments and biological substances, initial encounter (3) BPH w urinary obs/LUTS: Status: Acute Code(s): N40.1 - Benign prostatic hyperplasia with lower urinary tract symptoms; N13.8 - Other obstructive and reflux uropathy (4) Alcoholic intoxication: Qualifiers: Complication of substance-induced condition: uncomplicated Qualified Code(s): F10.920 - Alcohol use, unspecified with intoxication, uncomplicated Status: Acute Code(s): F10.929 - Alcohol use, unspecified with intoxication, unspecified (5) MDD (major depressive disorder), single episode, severe with psychotic features: Status: Acute Code(s): F32.3 - Major depressive disorder, single episode, severe with psychotic features Assessment and Plan: MDD with psychosis- continue current medications pre primary treatment team. This is a 50-year-old male who is currently being managed for psychosis at the [facility] developed arm swelling after pallor. On injection. We are consulted for evaluation. # left shoulder pain - CT of the shoulder shows some edema most likely inflammation with no evidence for abscess, or gas - most likely secondary to injection site reaction, compartment syndrome less likely answers no compartment in that area, no cellulitis as has no evidence of erythema, warmth - will use warm compress - Would prescribe NSAIDs to help reduce inflammation pt developes stomach uposet with NSAID - advise nursing staff to report to me if patient develops worsening pain, paresthesia, and or inability to move arm - monitor I will start at this moment Bactrin DS bid # Drug reaction - localized due to paliperidone injection - warm compress #Psychosis - Change all Haldol at HS up to 10 mg. Other medical issue management per Psych team Thank you for this consult Greater than 50% of the session was spent on counseling and/or coordination of care Reason for contiued inpatient stay Substantial Risk for: harm to self
[2020-08-18 14:15] VITALS: BP 125/65; PULSE 74
[2020-08-18 16:10] VITALS: BP 120/60; PULSE 80; TEMP 36.6
[2020-08-18 20:04] VITALS: BP 128/62; PULSE 88
[2020-08-18] MEDS: Doxazosin Mesylate 2 MG TABLET 8 MG PO (20:04)
[2020-08-18] MEDS: Sennosides 8.6 MG TABLET PO (20:04)
[2020-08-18] MEDS: HaloperidoL 5 MG TABLET 10 MG PO (20:05)
[2020-08-18] MEDS: Amitriptyline HCl 25 MG TABLET 125 MG PO (20:05)
[2020-08-18] MEDS: Mirtazapine 30 MG TABLET PO (20:05)
[2020-08-18] MEDS: Zolpidem Tartrate 5 MG TABLET PO (20:25)
[2020-08-19] MEDS: hydrOXYzine HCL 25 MG TABLET PO (00:25)
[2020-08-19 06:00] VITALS: BP 110/68; PULSE 75; RESP 16; TEMP 36.6; O2SAT 95
[2020-08-19] MEDS: Finasteride 5 MG TABLET PO (08:10)
[2020-08-19 08:11] VITALS: BP 117/70; PULSE 86
[2020-08-19] MEDS: atenoloL 25 MG TABLET PO (08:11)
[2020-08-19] MEDS: Gabapentin 300 MG CAPSULE PO ×3 (08:11→20:08)
[2020-08-19] MEDS: Sucralfate 1 GM TABLET PO ×4 (08:11→20:08)
[2020-08-19] MEDS: VerapamiL HCL 40 MG TABLET PO ×3 (08:11→20:08)
[2020-08-19] MEDS: Docusate Sodium 100 MG CAPSULE PO ×2 (08:11→20:08)
[2020-08-19 14:12] VITALS: BP 108/67; PULSE 71
[2020-08-19] MEDS: Milk of Magnesia 30 ML ORAL.SUSP PO (14:12)
[2020-08-19] MEDS: Magnesium Hydrox/Alum Hydrox 30 ML ORAL.SUSP PO (16:44)
[2020-08-19 19:59] VITALS: BP 115/66; PULSE 86; RESP 16; O2SAT 96
[2020-08-19] MEDS: Doxazosin Mesylate 2 MG TABLET 8 MG PO (20:07)
[2020-08-19] MEDS: HaloperidoL 5 MG TABLET 10 MG PO (20:08)
[2020-08-19] MEDS: Sennosides 8.6 MG TABLET PO (20:08)
[2020-08-19] MEDS: Mirtazapine 30 MG TABLET PO (20:08)
[2020-08-19] MEDS: Amitriptyline HCl 25 MG TABLET 125 MG PO (20:08)
[2020-08-19] MEDS: Zolpidem Tartrate 5 MG TABLET PO (20:08)
[2020-08-19] MEDS: clonazePAM 1 MG TABLET PO (20:08)
[2020-08-19] MEDS: cloNIDine HCL 0.1 MG TABLET PO (20:08)
[2020-08-20 06:51] VITALS: BP 116/60; PULSE 72; TEMP 36.3
[2020-08-20] MEDS: Acetaminophen 325 MG TABLET 650 MG PO ×2 (07:21→17:59)
--- NOTE | 2020-08-20 08:14 | P.PNIM_ITS ---
Subjective Subjective Date of Service: 08/20/20 Interval History: Follow-up abdominal pain No nausea, vomiting, diarrhea Reported bowel movement yesterday Physical Exam Vital Signs: Vital Signs: Last Vital Signs Temp 97.3 F 08/20/20 06:51 Pulse 72 08/20/20 06:51 Resp 16 08/19/20 19:59 BP 116/60 08/20/20 06:51 Pulse Ox 96 08/19/20 19:59 Body Mass Index 25.4 Appearing in no acute distress lung sounds are clear to auscultation heart regular rate rhythm, clear S1, S2 positive bowel sounds, abdomen is soft, nontender, no distension, guarding or rebound tenderness noted neuro patient is alert x3, no focal deficits Objective Data Current Medications Generic Name Dose Route Start Last Admin Trade Name Freq PRN Reason Stop Dose Admin Acetaminophen 650 mg 07/26/20 19:10 08/20/20 07:21 Acetaminophen 325 Mg Tablet PO 650 mg Q6H PRN Administration Headache/Pain Mild Scale (1-3) Al Hydroxide/Mg Hydroxide 30 ml 07/31/20 18:25 08/19/20 16:44 Magnesium Hydrox/Alum Hydrox 30 Ml Oral.Susp PO 30 ml Q4H PRN Administration Heartburn/Nausea Amitriptyline HCl 125 mg 08/13/20 21:00 08/19/20 20:08 Amitriptyline Hcl 25 Mg Tablet PO 125 mg BEDTIME JAMES Administration Atenolol 25 mg 07/26/20 09:00 08/19/20 08:11 Atenolol 25 Mg Tablet PO 25 mg DAILY JAMES Administration Protocol Bisacodyl 10 mg 08/05/20 02:00 08/05/20 05:47 Bisacodyl 10 Mg Supp.Rect NM 10 mg BEDTIME PRN Administration Constipation Clonazepam 1 mg 08/19/20 21:00 08/19/20 20:08 Clonazepam 1 Mg Tablet PO 1 mg BID JAMES Administration Clonidine HCl 0.1 mg 07/26/20 21:00 08/19/20 20:08 Clonidine Hcl 0.1 Mg Tablet PO 0.1 mg BEDTIME JAMES Administration Protocol Clonidine HCl 0.1 mg 07/26/20 19:35 08/10/20 01:27 Clonidine Hcl 0.1 Mg Tablet PO 0.1 mg Q4H PRN Administration Opiate Withdrawal Protocol Docusate Sodium 100 mg 08/05/20 09:00 08/19/20 20:08 Docusate Sodium 100 Mg Capsule PO 100 mg BID JAMES Administration Doxazosin Mesylate 8 mg 08/05/20 21:00 08/19/20 20:07 Doxazosin Mesylate 2 Mg Tablet PO 8 mg BEDTIME JAMES Administration Protocol Famotidine 20 mg 07/31/20 18:24 08/16/20 14:31 Famotidine 20 Mg Tablet PO 20 mg BID PRN Administration heartburn Finasteride 5 mg 08/06/20 09:00 08/19/20 08:10 Finasteride 5 Mg Tablet PO 5 mg DAILY JAMES Administration Fluticasone Propionate 2 spray 07/26/20 09:00 08/19/20 08:15 Fluticasone Propionate Nasal 16 Gm [place] NOSTRIL-B Not Given DAILY JAMES Gabapentin 300 mg 08/10/20 15:00 08/19/20 20:08 Gabapentin 300 Mg Capsule PO 300 mg TID JAMES Administration Haloperidol 10 mg 08/17/20 21:00 08/19/20 20:08 Haloperidol 5 Mg Tablet PO 10 mg BEDTIME JAMES Administration Hydroxyzine HCl 25 mg 07/26/20 19:10 08/19/20 00:25 Hydroxyzine Hcl 25 Mg Tablet PO 25 mg BEDTIME PRN Administration Anxiety Magnesium Hydroxide 30 ml 07/26/20 19:10 08/19/20 14:12 Milk Of Magnesia 30 Ml Oral.Susp PO 30 ml DAILY PRN Administration Constipation Methadone HCl 30 mg 07/31/20 09:00 08/19/20 10:30 Methadone Hcl 1 Mg/0.1 Ml Oral.Conc PO 30 mg DAILY JAMES Administration Mirtazapine 30 mg 08/03/20 21:00 08/19/20 20:08 Mirtazapine 30 Mg Tablet PO 30 mg BEDTIME JAMES Administration Ondansetron HCl 4 mg 07/28/20 19:58 08/08/20 04:58 Ondansetron Odt 4 Mg Tab.Rapdis TRANSLINGU 4 mg Q6H PRN Administration Nausea Senna 8.6 mg 08/06/20 21:00 08/19/20 20:08 Sennosides 8.6 Mg Tablet PO 8.6 mg BEDTIME JAMES Administration Sodium Biphosphate/Sodium Phosphate 133 ml 08/05/20 10:59 08/05/20 11:49 Sodium Phosphate,[place]-Dibasic 133 Ml Enema [place] 133 ml ONCE PRN Administration continued constipation Sucralfate 1 gm 08/06/20 17:00 08/19/20 20:08 Sucralfate 1 Gm Tablet PO 1 gm QID JAMES Administration Trimethoprim/Sulfamethoxazole 1 tab 08/15/20 10:00 08/19/20 20:08 Sulfamethox/Trimeth 800/160 1 Tab Tablet PO 1 tab Q12H JAMES Administration Verapamil HCl 40 mg 07/26/20 09:00 08/19/20 20:08 Verapamil Hcl 40 Mg Tablet PO 40 mg TID [facility] Administration Protocol Zolpidem Tartrate 5 mg 08/12/20 21:11 08/19/20 20:08 Zolpidem Tartrate 5 Mg Tablet PO 5 mg BEDTIME PRN Administration Insomnia Labs CBC & Chem 7: 08/20/20 08:34 08/20/20 08:34 Assessment and Plan (1) Abdominal pain: Status: Acute Assessment and Plan: 50-year-old man admitted to with complaints of abdominal pain over the last 24 hours. He reports lower abdominal pain, no nausea, vomiting or diarrhea. Reported regular bowel movements. Abdominal pain likely secondary to constipation. KUB showing stool throughout the colon suggestive of constipation Normal lactic acid Urinalysis negative - MiraLax and bisacodyl suppository ordered - encouraged to increase fluid intake and ambulate Mental health. -management as per psychiatric team
[2020-08-20] MEDS: Sucralfate 1 GM TABLET PO ×4 (08:35→20:59)
[2020-08-20] MEDS: atenoloL 25 MG TABLET PO (08:35)
[2020-08-20] MEDS: Finasteride 5 MG TABLET PO (08:35)
[2020-08-20] MEDS: Gabapentin 300 MG CAPSULE PO ×3 (08:35→20:57)
[2020-08-20] MEDS: VerapamiL HCL 40 MG TABLET PO ×3 (08:35→21:00)
[2020-08-20] MEDS: Docusate Sodium 100 MG CAPSULE PO ×2 (08:35→20:55)
[2020-08-20] MEDS: clonazePAM 1 MG TABLET PO ×2 (08:35→20:56)
[2020-08-20] MEDS: Fluticasone Propionate Nasal 16 GM SPRAY 2 SPRAY NOSTRIL-B (08:36)
[2020-08-20 08:41] LABS: Hematocrit 34.9 % (42-52); Hemoglobin 10.9 g/dl (14.0-18.0); Mean Corpuscular HGB Conc 31.2 g/dl (31.0-36.0); Mean Corpuscular Volume 96.1 fL (80-98); Mean Platelet Volume 9.4 fL (9.4-12.4); Platelet Count 236 X10*3/uL (160-400); Red Blood Count 3.63 X10*6/uL (4.60-5.80); Red Cell Distribution Width 14.1 % (11.0-16.0); White Blood Count 5.3 X10*3/uL (4.8-10.8)
[2020-08-20 09:09] LABS: Lactic Acid 1.8 mmol/L (0.5-2.0)
[2020-08-20 09:10] LABS: Anion Gap 13 (12-20); Blood Urea Nitrogen 17 mg/dL (9-16); Carbon Dioxide 28 mmol/L (22-29); Chloride 102 mmol/L (96-108); Estimated Glomerular Filt Rate > 60; Glucose Random 134 mg/dL (60-115); Potassium 4.7 mmol/L (3.3-5.1); Sodium 138 mmol/L (135-145)
[2020-08-20 10:24] LABS: Appearance Urine CLEAR; Color Urine YELLOW; Glucose Urine UA NEG (NEG); Leukocyte Esterase Urine NEG (NEG); Nitrite Urine NEG (NEG); Urine Blood NEG (NEG); Urine Ketones NEG (NEG); Urine Protein NEG (NEG-TRACE)
--- NOTE | 2020-08-20 12:04 | P.PNPSI_ITS ---
Subjective Subjective Date of Service: 08/20/20 Reason For Visit: SI Subjective Notes: Conditional Voluntary Interim History: The patient reported today AM intense and acute abdominal pain and the hospitalist saw him. Abdominal X-ray negative besides stools and CBC without major abnormalites. Mood remains stable. Medication Compliance: Yes Side effects from medications: No Attending Groups: Intermittent Mental Status Exam Mental Status Exam Patient Appearance: Disheveled Patient Orientation: Person, Place, Time and Situation Level of Consciousness: Awake Patient Behavior: Appropriate Mood Description: Withdrawn Affect Description: Constricted Ability to Follow Directions: Good Speech Pattern: Clear Memory Description: Intact Hallucinations: Auditory Delusions: Not Present Thought Process: Goal Oriented Thought Content: positive for Intact Judgement: Fair Diagnostics Vital Signs (24Hr): Vital Signs - 24 hr 08/19/20 14:12 08/19/20 19:59 08/20/20 06:51 Temperature 97.3 F Pulse Rate 71 86 72 Respiratory Rate 16 Blood Pressure 108/67 115/66 116/60 Pulse Oximetry 96 Body Mass Index 25.4 Labs Results: 08/20/20 08:34 08/20/20 08:34 Labs: Laboratory Results - last 48 hr 08/20/20 08/20/20 08/20/20 08:34 08:34 08:34 WBC 5.3 RBC 3.63 L Hgb 10.9 L Hct 34.9 L MCV 96.1 MCH 30.0 MCHC 31.2 RDW 14.1 Plt Count 236 MPV 9.4 Absolute Nucleated RBC 0.000 Nucleated RBC % (auto) 0.0 Sodium 138 Potassium 4.7 Chloride 102 Carbon Dioxide 28 Anion Gap 13 BUN 17 H Creatinine 0.95 Estim Creat Clear Calc 82.0 Estimated GFR > 60 Random Glucose 134 H D Lactic Acid 1.8 Calcium 9.0 Urine Color Urine Appearance Urine pH Ur Specific [place] Urine Protein Urine Glucose (UA) Urine Ketones Urine Blood Urine Nitrite Ur Leukocyte Esterase 08/20/20 10:00 WBC RBC Hgb Hct MCV MCH MCHC RDW Plt Count MPV Absolute Nucleated RBC Nucleated RBC % (auto) Sodium Potassium Chloride Carbon Dioxide Anion Gap BUN Creatinine Estim Creat Clear Calc Estimated GFR Random Glucose Lactic Acid Calcium Urine Color YELLOW Urine Appearance CLEAR Urine pH 7.0 Ur Specific [place] 1.020 Urine Protein NEG Urine Glucose (UA) NEG Urine Ketones NEG Urine Blood NEG Urine Nitrite NEG Ur Leukocyte Esterase NEG Imaging Radiology Impressions: ITS Impressions Chest X-Ray 07/26/20 11:31 IMPRESSION: No acute cardiopulmonary process seen. Abdomen/Pelvis CT 08/05/20 02:15 IMPRESSION: No acute findings of the abdomen or pelvis. There is mild fullness of both collecting systems which may be associated with the distended bladder. No bladder wall thickening. Moderate volume of stool throughout the entirety of the colon. Humerus CT 08/13/20 21:20 IMPRESSION: Nonspecific subcutaneous soft tissue edema lateral to the left shoulder and proximal humerus. There is no abnormal fluid collection or gas visualized to suspect any drainable abscess or mass. There is no bony abnormality involving the left humerus. KUB X-Ray 08/20/20 08:43 IMPRESSION: Constipation. Medications Medications Current Medications Generic Name Dose Route Start Last Admin Trade Name Freq PRN Reason Stop Dose Admin Acetaminophen 650 mg 07/26/20 19:10 08/20/20 07:21 Acetaminophen 325 Mg Tablet PO 650 mg Q6H PRN Administration Headache/Pain Mild Scale (1-3) Al Hydroxide/Mg Hydroxide 30 ml 07/31/20 18:25 08/19/20 16:44 Magnesium Hydrox/Alum Hydrox 30 Ml Oral.Susp PO 30 ml Q4H PRN Administration Heartburn/Nausea Amitriptyline HCl 125 mg 08/13/20 21:00 08/19/20 20:08 Amitriptyline Hcl 25 Mg Tablet PO 125 mg BEDTIME JAMES Administration Atenolol 25 mg 07/26/20 09:00 08/20/20 08:35 Atenolol 25 Mg Tablet PO 25 mg DAILY JAMES Administration Protocol Bisacodyl 10 mg 08/05/20 02:00 08/05/20 05:47 Bisacodyl 10 Mg Supp.Rect [place] 10 mg BEDTIME PRN Administration Constipation Clonazepam 1 mg 08/19/20 21:00 08/20/20 08:35 Clonazepam 1 Mg Tablet PO 1 mg BID JAMES Administration Clonidine HCl 0.1 mg 07/26/20 21:00 08/19/20 20:08 Clonidine Hcl 0.1 Mg Tablet PO 0.1 mg BEDTIME JAMES Administration Protocol Clonidine HCl 0.1 mg 07/26/20 19:35 08/10/20 01:27 Clonidine Hcl 0.1 Mg Tablet PO 0.1 mg Q4H PRN Administration Opiate Withdrawal Protocol Docusate Sodium 100 mg 08/05/20 09:00 08/20/20 08:35 Docusate Sodium 100 Mg Capsule PO 100 mg BID JAMES Administration Doxazosin Mesylate 8 mg 08/05/20 21:00 08/19/20 20:07 Doxazosin Mesylate 2 Mg Tablet PO 8 mg BEDTIME JAMES Administration Protocol Famotidine 20 mg 07/31/20 18:24 08/16/20 14:31 Famotidine 20 Mg Tablet PO 20 mg BID PRN Administration heartburn Finasteride 5 mg 08/06/20 09:00 08/20/20 08:35 Finasteride 5 Mg Tablet PO 5 mg DAILY JAMES Administration Fluticasone Propionate 2 spray 07/26/20 09:00 08/20/20 08:36 Fluticasone Propionate Nasal 16 Gm [place] NOSTRIL-B 2 spray DAILY JAMES Administration Gabapentin 300 mg 08/10/20 15:00 08/20/20 08:35 Gabapentin 300 Mg Capsule PO 300 mg TID JAMES Administration Haloperidol 10 mg 08/17/20 21:00 08/19/20 20:08 Haloperidol 5 Mg Tablet PO 10 mg BEDTIME JAMES Administration Hydroxyzine HCl 25 mg 07/26/20 19:10 08/19/20 00:25 Hydroxyzine Hcl 25 Mg Tablet PO 25 mg BEDTIME PRN Administration Anxiety Magnesium Hydroxide 30 ml 07/26/20 19:10 08/19/20 14:12 Milk Of Magnesia 30 Ml Oral.Susp PO 30 ml DAILY PRN Administration Constipation Methadone HCl 30 mg 07/31/20 09:00 08/20/20 08:36 Methadone Hcl 1 Mg/0.1 Ml Oral.Conc PO 30 mg DAILY JAMES Administration Mirtazapine 30 mg 08/03/20 21:00 08/19/20 20:08 Mirtazapine 30 Mg Tablet PO 30 mg BEDTIME JAMES Administration Ondansetron HCl 4 mg 07/28/20 19:58 08/08/20 04:58 Ondansetron Odt 4 Mg Tab.Rapdis TRANSLINGU 4 mg Q6H PRN Administration Nausea Polyethylene Glycol 17 gm 08/20/20 11:15 Polyethylene Glycol 3350 17 Gm Powd.Pack PO BID JAMES Senna 8.6 mg 08/06/20 21:00 08/19/20 20:08 Sennosides 8.6 Mg Tablet PO 8.6 mg BEDTIME JAMES Administration Sodium Biphosphate/Sodium Phosphate 133 ml 08/05/20 10:59 08/05/20 11:49 Sodium Phosphate,[place]-Dibasic 133 Ml Enema [place] 133 ml ONCE PRN Administration continued constipation Sucralfate 1 gm 08/06/20 17:00 08/20/20 08:35 Sucralfate 1 Gm Tablet PO 1 gm QID JAMES Administration Trimethoprim/Sulfamethoxazole 1 tab 08/15/20 10:00 08/20/20 08:35 Sulfamethox/Trimeth 800/160 1 Tab Tablet PO 1 tab Q12H JAMES Administration Verapamil HCl 40 mg 07/26/20 09:00 08/20/20 08:35 Verapamil Hcl 40 Mg Tablet PO 40 mg TID [facility] Administration Protocol Zolpidem Tartrate 5 mg 08/12/20 21:11 08/19/20 20:08 Zolpidem Tartrate 5 Mg Tablet PO 5 mg BEDTIME PRN Administration Insomnia Allergies Allergies Allergy/AdvReac Type Severity Reaction Status Date / Time trazodone [TRAZODONE] Allergy Severe FACIAL Verified 04/07/20 09:20 SWELLING, swelling cat dander [CATS] Allergy Intermediate FACIAL Verified 04/07/20 09:20 ITCHING doxepin [DOXEPIN] Allergy Intermediate WEIGHT Verified 04/07/20 09:20 GAIN/LEG SWELLING Iodinated Contrast Media Allergy Intermediate ITCHING Verified 04/07/20 09:20 [IV DYE, IODINE CONTAINING CONTRAST ] nitroglycerin [NITROGLYCERIN] Allergy Unknown UNKNOWN Verified 04/07/20 09:20 tramadol [TRAMADOL] Allergy Unknown UNKNOWN, Verified 04/07/20 09:20 dry mouth ibuprofen [From MOTRIN] AdvReac Intermediate GI UPSET Verified 04/07/20 09:20 quetiapine [From SEROQUEL] AdvReac Intermediate FACIAL Verified 04/07/20 09:20 SWELLING aspirin [ASPIRIN] AdvReac Mild Stomach Verified 04/07/20 09:20 Upset Ibuprofen Allergy Unknown stomach Uncoded 04/07/20 09:20 ache IV contrast Allergy Unknown Unknown Uncoded 04/07/20 09:20 Motrin Allergy Unknown stomach Uncoded 04/07/20 09:20 pain Assessment & Plan Assessment & Plan (1) Left shoulder pain: Status: Acute Code(s): M25.512 - Pain in left shoulder (2) Drug reaction: Status: Acute Code(s): T50.905A - Adverse effect of unspecified drugs, medicaments and biological substances, initial encounter (3) BPH w urinary obs/LUTS: Status: Acute Code(s): N40.1 - Benign prostatic hyperplasia with lower urinary tract symptoms; N13.8 - Other obstructive and reflux uropathy (4) Alcoholic intoxication: Qualifiers: Complication of substance-induced condition: uncomplicated Qualified Code(s): F10.920 - Alcohol use, unspecified with intoxication, uncomplicated Status: Acute Code(s): F10.929 - Alcohol use, unspecified with intoxication, unspecified (5) MDD (major depressive disorder), single episode, severe with psychotic features: Status: Acute Code(s): F32.3 - Major depressive disorder, single episode, severe with psychotic features Assessment and Plan: MDD with psychosis- continue current medications pre primary treatment team. This is a 50-year-old male who is currently being managed for psychosis at the [facility] developed arm swelling after pallor. On injection. We are consulted for evaluation. # left shoulder pain resolved with ATB. #Psychosis - Keep Haldol at HS up to 10 mg. - Invega Sustenna 156 mg monthly Other medical issue management per Psych team Thank you for this consult Greater than 50% of the session was spent on counseling and/or coordination of care Reason for contiued inpatient stay Substantial Risk for: inability to function, rapid decompensation and med/psych decompensation
[2020-08-20] MEDS: polyethylene glycoL 3350 17 GM POWD.PACK PO (13:55)
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
[2020-08-20 19:51] VITALS: BP 123/69; PULSE 84; TEMP 36.3; O2SAT 96
[2020-08-20] MEDS: Amitriptyline HCl 25 MG TABLET 125 MG PO (20:53)
[2020-08-20] MEDS: Zolpidem Tartrate 5 MG TABLET PO (20:55)
[2020-08-20] MEDS: Doxazosin Mesylate 2 MG TABLET 8 MG PO (20:56)
[2020-08-20] MEDS: Sennosides 8.6 MG TABLET PO (20:57)
[2020-08-20] MEDS: HaloperidoL 5 MG TABLET 10 MG PO (20:58)
[2020-08-20 20:59] VITALS: BP 123/69; PULSE 84
[2020-08-20] MEDS: cloNIDine HCL 0.1 MG TABLET PO (20:59)
[2020-08-20] MEDS: Mirtazapine 30 MG TABLET PO (21:00)
[2020-08-21 05:24] VITALS: BP 90/51; PULSE 109; RESP 18; TEMP 36.5; O2SAT 95
[2020-08-21] MEDS: Fluticasone Propionate Nasal 16 GM SPRAY 2 SPRAY NOSTRIL-B (08:27)
[2020-08-21] MEDS: Docusate Sodium 100 MG CAPSULE PO (08:28)
[2020-08-21] MEDS: Finasteride 5 MG TABLET PO (08:28)
[2020-08-21] MEDS: VerapamiL HCL 40 MG TABLET PO (08:28)
[2020-08-21] MEDS: polyethylene glycoL 3350 17 GM POWD.PACK PO (08:28)
[2020-08-21] MEDS: Gabapentin 300 MG CAPSULE PO (08:29)
[2020-08-21] MEDS: Acetaminophen 325 MG TABLET 650 MG PO (08:29)
[2020-08-21] MEDS: clonazePAM 1 MG TABLET PO (08:29)
[2020-08-21] MEDS: atenoloL 25 MG TABLET PO (08:29)
[2020-08-21] MEDS: Sucralfate 1 GM TABLET PO (08:29)
[2020-08-21] MEDS: Loperamide HCl 2 MG CAPSULE 4 MG PO (11:57)
--- NOTE | 2020-08-21 13:26 | PM.PSYDC ---
DS: Providers Provider Date of Service: 08/21/20 Date of admission: 07/26/20 19:11 Primary care physician: Patrick Ly MD Consults: 08/05/20 01:47 Consult to Gastroenterology Stat Consulting Provider: Hospitalist Reason for consultation: patient reports has no BMx4 days, no urine output x2 days. Pain 8/10 Has provider been notified: Yes 08/05/20 02:40 Consult to Urology Routine Consulting Provider: Lele Ojeda Reason for consultation: Urinary retension 08/08/20 10:23 Consult to Urology Routine Consulting Provider: Lele Ojeda Reason for consultation: F/U on urinary retention 08/13/20 18:28 Consult to Hospitalist Routine Consulting Provider: Hospitalist Reason For Exam: left deltoid myositis post TIRADO 3 days ago 08/14/20 14:31 Consult to Hospitalist Stat Consulting Provider: Hospitalist Reason For Exam: worsening of cellulitis 08/20/20 07:39 Consult to Hospitalist Stat Consulting Provider: Hospitalist Reason For Exam: Acute abdominal pain 12/14, bladder scan negative DS: Diagnosis Discharge Diagnosis (1) Alcoholic intoxication: Status: Acute (2) Opioid use disorder: Status: Acute (3) Psychosis: Status: Acute DS: Medications Discharge Medications Home Medications: Home Medications Medication Instructions Recorded Confirmed atenolol 1 tab PO DAILY 07/26/20 07/26/20 clonazepam 1 tab PO BID 07/26/20 07/26/20 clonidine HCl 1 tab PO BEDTIME 07/26/20 07/26/20 fluticasone propionate 2 spray INTRANASAL DAILY 07/26/20 07/26/20 sucralfate 1 tab PO QID 07/26/20 07/26/20 tamsulosin 1 cap PO DAILY 07/26/20 07/26/20 verapamil 1 tab PO TID 07/26/20 07/26/20 Previous Rx's Medication Instructions Recorded amitriptyline 25 mg PO BEDTIME 30 Days #30 tab 08/21/20 amitriptyline 100 mg PO BEDTIME 30 Days #30 tab 08/21/20 atenolol 25 mg PO DAILY 30 Days #30 tab 08/21/20 clonazepam 1 mg PO BID 30 Days #60 tab 08/21/20 clonidine HCl 0.1 mg PO BEDTIME 30 Days #30 tab 08/21/20 docusate sodium 100 mg PO BID 30 Days #60 cap 08/21/20 doxazosin 8 mg PO BEDTIME 30 Days #30 tab 08/21/20 finasteride [Proscar] 5 mg PO DAILY 30 Days #30 tab 08/21/20 fluticasone propionate 2 spray INTRANASAL DAILY #0 g 08/21/20 gabapentin 300 mg PO TID 30 Days #90 cap 08/21/20 haloperidol 10 mg PO BEDTIME 30 Days #30 tab 08/21/20 methadone [Methadose] 30 mg PO DAILY #0 ml 08/21/20 mirtazapine 30 mg PO BEDTIME 30 Days #30 tab 08/21/20 sennosides [Senna Lax] 8.6 mg PO BEDTIME 30 Days #30 tab 08/21/20 sucralfate 1 g PO QID 30 Days #120 tab 08/21/20 verapamil 40 mg PO TID 30 Days #90 tab 08/21/20 zolpidem [Ambien] 10 mg PO BEDTIME PRN 30 Days #30 08/21/20 tab Discharge Plan Discharge Patient Disposition: Xfer Other Discharge Diagnosis: Schizoaffective disorder bipolar type Opioid use disorder Referrals: Jayson Rosado (therapist) [Other] - 08/22/20 8:45 am (Telehealth appointment) Dr. Ivan Da Silva (psychiatrist) [Other] - 08/27/20 8:20 am (Telehealth appointment) [facility] ([facility]) [Other] (Go to walk-in hours to receive your dose (between 5:45am-12pm). They have all of your referral information) Patrick Ly MD [Primary Care Provider] - 09/06/20 10:45 am (Follow up appointment in person. ) Discharge Medications: New clonidine HCl 0.1 mg Tablet 0.1 mg PO BEDTIME 30 Days Qty: 30 RF: 0 verapamil 40 mg Tablet 40 mg PO TID 30 Days Qty: 90 RF: 0 atenolol 25 mg Tablet 25 mg PO DAILY 30 Days Qty: 30 RF: 0 doxazosin 8 mg tablet 8 mg PO BEDTIME 30 Days Qty: 30 RF: 0 sennosides [Senna Lax] 8.6 mg Tablet 8.6 mg PO BEDTIME 30 Days Qty: 30 RF: 0 sucralfate 1 gram Tablet 1 g PO QID 30 Days Qty: 120 RF: 0 clonazepam 1 mg Tablet 1 mg PO BID 30 Days Qty: 60 RF: 0 mirtazapine 30 mg Tablet 30 mg PO BEDTIME 30 Days Qty: 30 RF: 0 docusate sodium 100 mg Capsule 100 mg PO BID 30 Days Qty: 60 RF: 0 gabapentin 300 mg Capsule 300 mg PO TID 30 Days Qty: 90 RF: 0 methadone [Methadose] 10 mg/mL Concentrate 30 mg PO DAILY Qty: 0 RF: 0 fluticasone propionate 50 mcg/actuation [place],Suspension 2 spray intranasal DAILY Qty: 0 RF: 0 finasteride [Proscar] 5 mg Tablet 5 mg PO DAILY 30 Days Qty: 30 RF: 0 amitriptyline 25 mg tablet 25 mg PO BEDTIME 30 Days Qty: 30 RF: 0 amitriptyline 100 mg tablet 100 mg PO BEDTIME 30 Days Qty: 30 RF: 0 haloperidol 10 mg tablet 10 mg PO BEDTIME 30 Days Qty: 30 RF: 0 Continued clonidine HCl 0.1 mg tablet 1 tab PO BEDTIME RF: 0 verapamil 40 mg tablet 1 tab PO TID RF: 0 sucralfate 1 gram tablet 1 tab PO QID RF: 0 clonazepam 1 mg tablet 1 tab PO BID RF: 0 atenolol 25 mg tablet 1 tab PO DAILY RF: 0 tamsulosin 0.4 mg capsule 1 cap PO DAILY RF: 0 fluticasone propionate 50 mcg/actuation spray,suspension 2 spray intranasal DAILY RF: 0 zolpidem [Ambien] 10 mg Tablet 10 mg PO BEDTIME PRN (Reason: Sleep) 30 Days Qty: 30 RF: 0 Discontinued divalproex 500 mg tablet,delayed release (DR/EC) 1 tab PO BID RF: 0 amitriptyline 25 mg tablet 1 tab PO BEDTIME RF: 0 valproic acid (as sodium salt) 250 mg/5 mL solution 10 ml PO BID RF: 0 mirtazapine 15 mg tablet 1 tab PO BEDTIME RF: 0 risperidone 0.5 mg tablet,disintegrating 1 tab PO BID RF: 0 Discharge Orders: Discharge Order (Routine); Ordered 08/21/20 Ordered By: Michelet Zaman Activity on Discharge: As tolerated Stand Alone Forms: Patient Portal Discharge page Care Plan Goals: [place] at [facility] Concerns: F/U with PCP Plan of Treatment: Continue as outpatient Assessment: Currently stable wioth no safety concerns. Mental Status Exam Mental Status Exam Patient Appearance: Well Grooomed Patient Orientation: Person, Place, Time and Situation Level of Consciousness: Awake Patient Behavior: Appropriate Mood Description: Calm Affect Description: Appropriate Patient Cognition Impaired: No Ability to Follow Directions: Good Speech Pattern: Clear Memory Description: Intact Hallucinations: None Delusions: Not Present Thought Process: Goal Oriented Thought Content: positive for Intact Judgement: Fair Data Data Completed and Pending Completed studies during hospitalization [Text1]: 08/20/20 08/20/20 08/20/20 08:34 08:34 08:34 WBC 5.3 RBC 3.63 L Hgb 10.9 L Hct 34.9 L MCV 96.1 MCH 30.0 MCHC 31.2 RDW 14.1 Plt Count 236 MPV 9.4 Absolute Nucleated RBC 0.000 Nucleated RBC % (auto) 0.0 Sodium 138 Potassium 4.7 Chloride 102 Carbon Dioxide 28 Anion Gap 13 BUN 17 H Creatinine 0.95 Estim Creat Clear Calc 82.0 Estimated GFR > 60 Random Glucose 134 H D Lactic Acid 1.8 Calcium 9.0 Urine Color Urine Appearance Urine pH Ur Specific [place] Urine Protein Urine Glucose (UA) Urine Ketones Urine Blood Urine Nitrite Ur Leukocyte Esterase 08/20/20 10:00 WBC RBC Hgb Hct MCV MCH MCHC RDW Plt Count MPV Absolute Nucleated RBC Nucleated RBC % (auto) Sodium Potassium Chloride Carbon Dioxide Anion Gap BUN Creatinine Estim Creat Clear Calc Estimated GFR Random Glucose Lactic Acid Calcium Urine Color YELLOW Urine Appearance CLEAR Urine pH 7.0 Ur Specific [place] 1.020 Urine Protein NEG Urine Glucose (UA) NEG Urine Ketones NEG Urine Blood NEG Urine Nitrite NEG Ur Leukocyte Esterase NEG Imaging Diagnostic Imaging Impressions Chest X-Ray 07/26/20 11:31 IMPRESSION: No acute cardiopulmonary process seen. Abdomen/Pelvis CT 08/05/20 02:15 IMPRESSION: No acute findings of the abdomen or pelvis. There is mild fullness of both collecting systems which may be associated with the distended bladder. No bladder wall thickening. Moderate volume of stool throughout the entirety of the colon. Humerus CT 08/13/20 21:20 IMPRESSION: Nonspecific subcutaneous soft tissue edema lateral to the left shoulder and proximal humerus. There is no abnormal fluid collection or gas visualized to suspect any drainable abscess or mass. There is no bony abnormality involving the left humerus. KUB X-Ray 08/20/20 08:43 IMPRESSION: Constipation. Head CT 08/20/20 18:24 IMPRESSION: No acute intracranial pathology. Mild small vessel ischemic changes. DS: Summary Hospital Course Hospital Course: The patient was initially admitted to the ED since he walked in complaing of auditory hallucinatios, paranoia and suicidal ideation. He reported that he was abusing cocaine, heroin and alcohol and he was non-compliant with his psychotropics for depression and psychosis. He was admitted for psychiatric stabilization. He was technically homeless, and he wanted to continue treatment. We started to titrate Elavil up to a therapeutic dose, also we changed Risperdal to Invega Sustenna but he had cellulitis on the site of the injection. We started titrating Haldol up to 10 mg with fair improvement of his psychosis. The pateint improved slowly and discharge planning was discussed Time spent discussing smoking cessation with patient: 3 to 10 minutes Status at Discharge Functional status at discharge: independent ambulation Overall status at discharge: patient is back to baseline Time Spent with Patient Time attestation: Total time spent providing and/or coordinating discharge services: Time spent: Less than 30 minutes
== END 2020-08-21 14:35 | disposition other institution (70) | DRG 754 ==
LOC: HO.ED 07-26 01:31 → HO.PM5 07-26 19:22
PROVIDERS: Hospitalist; Internal Medicine; Nurse Practitioner Acute Care; Physician Assistant; Psychiatry & Neurology Psychiatry; Admitting Provider Psychiatry & Neurology Psychiatry; Emergency Provider Internal Medicine; PCP Internal Medicine; Visit Provider Psychiatry & Neurology Psychiatry
DX: F32.9 Major depressive disorder, single episode, unspecified (principal); R45.851 Suicidal ideations; S01.81XA Laceration without foreign body of other part of head, initial encounter; S61.412A Laceration without foreign body of left hand, initial encounter; F41.9 Anxiety disorder, unspecified; F10.20 Alcohol dependence, uncomplicated; F11.23 Opioid dependence with withdrawal; F17.210 Nicotine dependence, cigarettes, uncomplicated; N40.1 Benign prostatic hyperplasia with lower urinary tract symptoms; R33.8 Other retention of urine; K21.9 Gastro-esophageal reflux disease without esophagitis; T80.89XA Other complications following infusion, transfusion and therapeutic injection, initial encounter; R22.32 Localized swelling, mass and lump, left upper limb; M25.512 Pain in left shoulder; K59.00 Constipation, unspecified; T43.595A Adverse effect of other antipsychotics and neuroleptics, initial encounter; Y92.239 Unspecified place in hospital as the place of occurrence of the external cause; V98.8XXA Other specified transport accidents, initial encounter; Y93.9 Activity, unspecified; Y92.232 Corridor of hospital as the place of occurrence of the external cause; Y99.9 Unspecified external cause status; Z71.6 Tobacco abuse counseling; Z59.0 Homelessness; Z20.822 Contact with and (suspected) exposure to COVID-19; Z88.5 Allergy status to narcotic agent; Z88.6 Allergy status to analgesic agent; Z79.51 Long term (current) use of inhaled steroids; Z79.899 Other long term (current) drug therapy
CPT/HCPCS: 36415; 70450; 71045; 73201; 74018; 74176; 80048; 80053; 80061; 80307; 80320; 80335; 81001; 81003; 82550; 83036; 83605; 83735; 85025; 85027; 87635; 92610; 93005; 96372; 96374; 99285; C1758; J1200; J2060; J2405; J2426; Q0163; Q9967

== ENCOUNTER 2020-10-29 22:26 | Inpatient (IN) | payer OTHER, MEDICAID, SELFPAY ==
[2020-10-29 22:30] VITALS: BP 109/71; PULSE 91; RESP 15; TEMP 36.6; O2SAT 98; BMI 25.0
[2020-10-29 23:19] LABS: COVID-19 Test Negative (Negative)
[2020-10-29 23:29] LABS: Amphetamine Screen Urine Not Detected (Not Detect); Barbiturates, Urine Not Detected (Not Detect); Benzodiazepines Screen Urine Not Detected (Not Detect); Cannabinoid Screen Urine Not Detected (Not Detect); Cocaine Screen Urine Not Detected (Not Detect); Opiate Screen Urine Not Detected (Not Detect); Phencyclidine Screen Urine Not Detected (Not Detect)
[2020-10-30] VITALS (7 sets, daily range): BP systolic 119–123; BP diastolic 64–69; PULSE 74–89; RESP 16–20; TEMP 36.6–36.9; O2SAT 95–98
--- NOTE | 2020-10-30 | ED_ITS ---
HPI - Psych General Chief Complaint: Psychiatric Symptoms <NASRIN Huynh Last Filed: 10/30/20 00:58> Stated Complaint: si depression <NASRIN Huynh Last Filed: 10/30/20 00:58> Time Seen by Provider: 10/29/20 23:48 <NASRIN Huynh Last Filed: 10/30/20 00:58> Source: patient <NASRIN Huynh Last Filed: 10/30/20 00:58> Mode of arrival: ambulatory <NASRIN Huynh Last Filed: 10/30/20 00:58> History of Present Illness HPI Narrative: 50-year-old male with a past medical history of alcohol dependence, anxiety, dysphagia, GERD, depression with psychotic features, opiate abuse, presenting to the ED complaining suicidal ideations without plan. Patient also reports ETOH abuse, reports drinking 3 beers today. Admits to drinking daily about 5 beers. Denies illicit drug use. Denies falls or trauma, CP/SOB, abdominal pain, nausea/vomiting <NASRIN Huynh Last Filed: 10/30/20 00:58> MD complaint: suicidal ideation and feels depressed <NASRIN Huynh Last Filed: 10/30/20 00:58> Related Data Home Medications: Home Medications Medication Instructions Recorded Confirmed sucralfate 1 tab PO QID 07/26/20 10/29/20 tamsulosin 1 cap PO DAILY 07/26/20 10/29/20 chlorpromazine 1 tab PO QID PRN 10/29/20 10/29/20 clonazepam 1 tab PO BID 10/29/20 10/29/20 clonidine HCl 1 tab PO BEDTIME 10/29/20 10/29/20 methocarbamol 1 tab PO QID 10/29/20 10/29/20 mirtazapine 1 tab PO BEDTIME 10/29/20 10/29/20 omeprazole 1 cap PO DAILY 10/29/20 10/29/20 Previous Rx's Medication Instructions Recorded atenolol 25 mg PO DAILY 30 Days #30 tab 08/21/20 fluticasone propionate 2 spray INTRANASAL DAILY #0 g 08/21/20 verapamil 40 mg PO TID 30 Days #90 tab 08/21/20 zolpidem [Ambien] 10 mg PO BEDTIME PRN 30 Days #30 08/21/20 tab <NASRIN Huynh - Last Filed: 10/30/20 00:58> Allergies/Adverse Reactions: Allergies Allergy/AdvReac Type Severity Reaction Status Date / Time trazodone [TRAZODONE] Allergy Severe FACIAL Verified 04/07/20 09:20 SWELLING, swelling cat dander [CATS] Allergy Intermediate FACIAL Verified 04/07/20 09:20 ITCHING doxepin [DOXEPIN] Allergy Intermediate WEIGHT Verified 04/07/20 09:20 GAIN/LEG SWELLING Iodinated Contrast Media Allergy Intermediate ITCHING Verified 04/07/20 09:20 [IV DYE, IODINE CONTAINING CONTRAST ] nitroglycerin [NITROGLYCERIN] Allergy Unknown UNKNOWN Verified 04/07/20 09:20 tramadol [TRAMADOL] Allergy Unknown UNKNOWN, Verified 04/07/20 09:20 dry mouth ibuprofen [From MOTRIN] AdvReac Intermediate GI UPSET Verified 04/07/20 09:20 quetiapine [From SEROQUEL] AdvReac Intermediate FACIAL Verified 04/07/20 09:20 SWELLING aspirin [ASPIRIN] AdvReac Mild Stomach Verified 04/07/20 09:20 Upset Ibuprofen Allergy Unknown stomach Uncoded 04/07/20 09:20 ache IV contrast Allergy Unknown Unknown Uncoded 04/07/20 09:20 Motrin Allergy Unknown stomach Uncoded 04/07/20 09:20 pain <NASRIN Huynh - Last Filed: 10/30/20 00:58> Review of Systems Review of Systems: Constitutional: No Fever, No Chills, No Fatigue, No Malaise Cardiovascular: No Chest Pain, No SOB Respiratory: No Cough Gastrointestinal: No Nausea, No Vomiting, No Abdominal pain Genitourinary: No Dysuria, No Hematuria Musculoskeletal: No joint pain, No Myalgias Skin: No Skin Lesions, No rash Psych: No Anxiety/Panic, No Depression, + SI, No HI <NASRIN Huynh Last Filed: 10/30/20 00:58> Yes all other systems are reviewed and are negative <NASRIN Huynh Last Filed: 10/30/20 00:58> PMFSH Past Medical History Attestation statement: The following information was validated with the patient. <NASRIN Huynh Last Filed: 10/30/20 00:58> Medical History: Medical History Alcohol dependence Anxiety Chest pain Derangement of symphysis pubis Dysphagia GERD (gastroesophageal reflux disease) Major depressive disorder, recurrent severe without psychotic features Opioid abuse Weight loss <NASRIN Huynh - Last Filed: 10/30/20 00:58> Surgical History: Surgical History H/O umbilical hernia repair History of colonoscopy History of cystoscopy <NASRIN Huynh - Last Filed: 10/30/20 00:58> Family History Family History: Family History Father HTN (hypertension) Diabetes Mother HTN (hypertension) Stroke Alzheimer disease Heart disease <NASRIN Huynh - Last Filed: 10/30/20 00:58> Social History Social History: Social History Household Members: Friend(s) Housing: Homeless Do you presently have visiting nurse or other home services: No Alcohol intake: current Alcohol intake frequency: 3 or more drinks per day Cigarette Packs Per Day: 1 Cigarettes Per Day: 20.0 Years Smoked: 9 Second Hand Smoke Exposure: Yes Substance Use Type: Crack/Cocaine Advance Directives: Yes Advance Directives on File: Yes Advance Directives Date on File: 02/24/20 service: No Current occupational status: disabled Sexual orientation: Straight/Heterosexual <NASRIN Huynh - Last Filed: 10/30/20 00:58> Physical Exam Vital Signs: Vital Signs: Last Vital Signs Temp 98.4 F 10/30/20 07:56 Pulse 89 10/30/20 07:56 Resp 10/30/20 07:56 BP 123/69 10/30/20 07:56 Pulse Ox 98 10/30/20 07:56 Body Mass Index 25.0 <NASRIN Huynh - Last Filed: 10/30/20 00:58> Vital Signs: Last Vital Signs Temp 98.4 F 10/30/20 07:56 Pulse 89 10/30/20 07:56 Resp 10/30/20 07:56 BP 123/69 10/30/20 07:56 Pulse Ox 98 10/30/20 07:56 Body Mass Index 25.0 <Carmen Dyson AK - Last Filed: 10/30/20 08:39> Const: General: cooperative, well developed and alert <NASRIN Huynh - Last Filed: 10/30/20 00:58> Limitations: no limitations <Caro Beckman [place] - Last Filed: 10/30/20 00:58> HENMT: Head: Yes normal to inspection and Yes atraumatic <Caro Beckman AK - Last Filed: 10/30/20 00:58> Ears: hearing grossly normal bilaterally <Caro Beckman AK - Last Filed: 10/30/20 00:58> General nose exam: Normal external nose present <NASRIN Huynh - Last Filed: 10/30/20 00:58> Face and sinus: Yes normal facial exam <NASRIN Huynh - Last Filed: 10/30/20 00:58> Eyes: General: appearance normal, both eyes and all related structures <Caro Beckman AK - Last Filed: 10/30/20 00:58> Pupils: Equal, round and reactive pupils present and Dilated pupils bilaterally <NASRIN Huynh - Last Filed: 10/30/20 00:58> EOM: EOMs intact bilaterally <Caro Beckman AK - Last Filed: 10/30/20 00:58> Direct Ophthalmoscopy: normal light reflex <NASRIN Huynh Last Filed: 10/30/20 00:58> Neck: Neck: Yes normal visual inspection and Yes no meningeal signs <Caro Beckman AK - Last Filed: 10/30/20 00:58> Resp: Effort & Inspection: normal respiratory effort and no respiratory distress <NASRIN Huynh - Last Filed: 10/30/20 00:58> Cardio: Rate: regular rate <NASRIN Huynh - Last Filed: 10/30/20 00:58> Heart sounds: S1 normal heart sound present and S2 normal heart sound present <NASRIN Huynh - Last Filed: 10/30/20 00:58> GI: Inspection: Yes normal to inspection <NASRIN Huynh - Last Filed: 10/30/20 00:58> Palpation (GI): Soft to palpation, nontender, no guarding and not rigid <NASRIN Huynh - Last Filed: 10/30/20 00:58> Skin: Rashes: no rashes <NASRIN Huynh - Last Filed: 10/30/20 00:58> Wounds: no wounds <NASRIN Huynh - Last Filed: 10/30/20 00:58> Neuro: General: no meningeal signs <NASRIN Huynh Last Filed: 10/30/20 00:58> Cranial nerves: Yes Equal, round and reactive pupils present <NASRIN Huynh - Last Filed: 10/30/20 00:58> Gait exam (Neuro): Normal gait present <NASRIN Huynh Last Filed: 00:58> Extrem: General: Yes normal to inspection <NASRIN Huynh - Last Filed: 10/30/20 00:58> Psych: Other: Appears under the influence <NASRIN Huynh - Last Filed: 10/30/20 00:58> Course Course Course Narrative: -0100-- ED care transferred to Dr. Prabhakar pending ethanol & BHN evaluation <NASRIN Huynh Last Filed: 10/30/20 00:58> MDM - Psych MDM Narrative Medical decision making narrative: 50-year-old male with a past medical history of alcohol dependence, anxiety, dysphagia, GERD, depression with psychotic features, opiate abuse, presenting to the ED complaining suicidal ideations without plan. Exam VSS, NAD/well-appearing, suicidal, tired but awake and alert, appears under the influence. No evidence of trauma. Plan: Ethanol, POC, KEITA, BHN evaluation, observe and reassess for any evidence of EtOH withdrawal <NASRIN Huynh - Last Filed: 10/30/20 00:58> Medical Records Attestation: I reviewed the patient's medical records. <NASRIN Huynh Last Filed: 10/30/20 00:58> Lab Data Attestation: I reviewed the patient's lab results. <NASRIN Huynh Last Filed: 10/30/20 00:58> Result diagrams: : 10/30/20 00:24 10/30/20 00:24 <NASRIN Huynh - Last Filed: 10/30/20 00:58> Labs: Lab Results 10/29/20 10/29/20 10/30/20 Range/Units 22:57 22:57 00:07 WBC (4.8-10.8) X10*3/uL RBC (4.60-5.80) X10*6/uL Hgb (14.0-18.0) g/dl Hct (42-52) % MCV (80-98) fL MCH (27.0-33.0) pg MCHC (31.0-36.0) g/dl RDW (11.0-16.0) % Plt Count (160-400) X10*3/uL MPV (9.4-12.4) fL Immature Gran % (Auto) (0.0-0.4) % Neut % (Auto) (45-73) % Lymph % (Auto) (20-40) % Greenlee % (Auto) (2-11) % Eos % (Auto) (0-4) % Baso % (Auto) (0-2) % Lymph # (Auto) (1.2-4.9) X10*3/uL Greenlee # (Auto) (0.1-1.2) X10*3/uL Eos # (Auto) (0.0-0.4) X10*3/uL Baso # (Auto) (0.0-0.2) X10*3/uL Abs Immat Gran (auto) (0.00-0.03) X10*3/uL Absolute Neuts (auto) (2.0-8.3) X10*3/uL Absolute Nucleated RBC (0.0-0.012) X10*3/uL Nucleated RBC % (auto) (0.0-0.2) /100WBC Sodium (135-145) mmol/L Potassium (3.3-5.1) mmol/L Chloride (96-108) mmol/L Carbon Dioxide (22-29) mmol/L Anion Gap (12-20) BUN (9-16) mg/dL Creatinine (0.5-1.4) mg/dL Estim Creat Clear Calc Estimated GFR POC Glucose 81 (60-115) mg/dL Random Glucose (60-115) mg/dL Calcium (8.4-10.2) mg/dL Urine Opiates Screen Not Detected (Not Detect) Ur Barbiturates Screen Not Detected (Not Detect) Ur Phencyclidine Scrn Not Detected (Not Detect) Ur Amphetamines Screen Not Detected (Not Detect) U Benzodiazepines Scrn Not Detected (Not Detect) Urine Cocaine Screen Not Detected (Not Detect) U Marijuana (THC) Screen Not Detected (Not Detect) Ethyl Alcohol mg/dL COVID-19 (ERIN) Negative (Negative) COVID-19 Clin Com See Note 10/30/20 10/30/20 10/30/20 Range/Units 00:24 00:24 00:24 WBC 7.9 (4.8-10.8) X10*3/uL RBC 3.71 L (4.60-5.80) X10*6/uL Hgb 11.4 L (14.0-18.0) g/dl Hct 34.5 L (42-52) % MCV 93.0 (80-98) fL MCH 30.7 (27.0-33.0) pg MCHC 33.0 (31.0-36.0) g/dl RDW 14.6 (11.0-16.0) % Plt Count 251 (160-400) X10*3/uL MPV 8.9 L (9.4-12.4) fL Immature Gran % (Auto) 0.4 (0.0-0.4) % Neut % (Auto) 52.4 (45-73) % Lymph % (Auto) 39.1 (20-40) % Greenlee % (Auto) 5.2 (2-11) % Eos % (Auto) 2.5 (0-4) % Baso % (Auto) 0.4 (0-2) % Lymph # (Auto) 3.1 (1.2-4.9) X10*3/uL Greenlee # (Auto) 0.4 (0.1-1.2) X10*3/uL Eos # (Auto) 0.2 (0.0-0.4) X10*3/uL Baso # (Auto) 0.0 (0.0-0.2) X10*3/uL Abs Immat Gran (auto) 0.03 (0.00-0.03) X10*3/uL Absolute Neuts (auto) 4.2 (2.0-8.3) X10*3/uL Absolute Nucleated RBC 0.000 (0.0-0.012) X10*3/uL Nucleated RBC % (auto) 0.0 (0.0-0.2) /100WBC Sodium 144 (135-145) mmol/L Potassium 3.4 D (3.3-5.1) mmol/L Chloride 111 H (96-108) mmol/L Carbon Dioxide 19 L (22-29) mmol/L Anion Gap 17 (12-20) BUN 14 (9-16) mg/dL Creatinine 0.82 (0.5-1.4) mg/dL Estim Creat Clear Calc 98.5 Estimated GFR > 60 POC Glucose (60-115) mg/dL Random Glucose 79 D (60-115) mg/dL Calcium 8.6 (8.4-10.2) mg/dL Urine Opiates Screen (Not Detect) Ur Barbiturates Screen (Not Detect) Ur Phencyclidine Scrn (Not Detect) Ur Amphetamines Screen (Not Detect) U Benzodiazepines Scrn (Not Detect) Urine Cocaine Screen (Not Detect) U Marijuana (THC) Screen (Not Detect) Ethyl Alcohol 124 mg/dL COVID-19 (ERIN) (Negative) COVID-19 Clin Com <NASRIN Huynh - Last Filed: 10/30/20 00:58> Lab Results 10/29/20 10/29/20 10/30/20 Range/Units 22:57 22:57 00:07 WBC (4.8-10.8) X10*3/uL RBC (4.60-5.80) X10*6/uL Hgb (14.0-18.0) g/dl Hct (42-52) % MCV (80-98) fL MCH (27.0-33.0) pg MCHC (31.0-36.0) g/dl RDW (11.0-16.0) % Plt Count (160-400) X10*3/uL MPV (9.4-12.4) fL Immature Gran % (Auto) (0.0-0.4) % Neut % (Auto) (45-73) % Lymph % (Auto) (20-40) % Greenlee % (Auto) (2-11) % Eos % (Auto) (0-4) % Baso % (Auto) (0-2) % Lymph # (Auto) (1.2-4.9) X10*3/uL Greenlee # (Auto) (0.1-1.2) X10*3/uL Eos # (Auto) (0.0-0.4) X10*3/uL Baso # (Auto) (0.0-0.2) X10*3/uL Abs Immat Gran (auto) (0.00-0.03) X10*3/uL Absolute Neuts (auto) (2.0-8.3) X10*3/uL Absolute Nucleated RBC (0.0-0.012) X10*3/uL Nucleated RBC % (auto) (0.0-0.2) /100WBC Sodium (135-145) mmol/L Potassium (3.3-5.1) mmol/L Chloride (96-108) mmol/L Carbon Dioxide (22-29) mmol/L Anion Gap (12-20) BUN (9-16) mg/dL Creatinine (0.5-1.4) mg/dL Estim Creat Clear Calc Estimated GFR POC Glucose 81 (60-115) mg/dL Random Glucose (60-115) mg/dL Calcium (8.4-10.2) mg/dL Urine Opiates Screen Not Detected (Not Detect) Ur Barbiturates Screen Not Detected (Not Detect) Ur Phencyclidine Scrn Not Detected (Not Detect) Ur Amphetamines Screen Not Detected (Not Detect) U Benzodiazepines Scrn Not Detected (Not Detect) Urine Cocaine Screen Not Detected (Not Detect) U Marijuana (THC) Screen Not Detected (Not Detect) Ethyl Alcohol mg/dL COVID-19 (ERIN) Negative (Negative) COVID-19 Clin Com See Note 10/30/20 10/30/20 10/30/20 Range/Units 00:24 00:24 00:24 WBC 7.9 (4.8-10.8) X10*3/uL RBC 3.71 L (4.60-5.80) X10*6/uL Hgb 11.4 L (14.0-18.0) g/dl Hct 34.5 L (42-52) % MCV 93.0 (80-98) fL MCH 30.7 (27.0-33.0) pg MCHC 33.0 (31.0-36.0) g/dl RDW 14.6 (11.0-16.0) % Plt Count 251 (160-400) X10*3/uL MPV 8.9 L (9.4-12.4) fL Immature Gran % (Auto) 0.4 (0.0-0.4) % Neut % (Auto) 52.4 (45-73) % Lymph % (Auto) 39.1 (20-40) % Greenlee % (Auto) 5.2 (2-11) % Eos % (Auto) 2.5 (0-4) % Baso % (Auto) 0.4 (0-2) % Lymph # (Auto) 3.1 (1.2-4.9) X10*3/uL Greenlee # (Auto) 0.4 (0.1-1.2) X10*3/uL Eos # (Auto) 0.2 (0.0-0.4) X10*3/uL Baso # (Auto) 0.0 (0.0-0.2) X10*3/uL Abs Immat Gran (auto) 0.03 (0.00-0.03) X10*3/uL Absolute Neuts (auto) 4.2 (2.0-8.3) X10*3/uL Absolute Nucleated RBC 0.000 (0.0-0.012) X10*3/uL Nucleated RBC % (auto) 0.0 (0.0-0.2) /100WBC Sodium 144 (135-145) mmol/L Potassium 3.4 D (3.3-5.1) mmol/L Chloride 111 H (96-108) mmol/L Carbon Dioxide 19 L (22-29) mmol/L Anion Gap 17 (12-20) BUN 14 (9-16) mg/dL Creatinine 0.82 (0.5-1.4) mg/dL Estim Creat Clear Calc 98.5 Estimated GFR > 60 POC Glucose (60-115) mg/dL Random Glucose 79 D (60-115) mg/dL Calcium 8.6 (8.4-10.2) mg/dL Urine Opiates Screen (Not Detect) Ur Barbiturates Screen (Not Detect) Ur Phencyclidine Scrn (Not Detect) Ur Amphetamines Screen (Not Detect) U Benzodiazepines Scrn (Not Detect) Urine Cocaine Screen (Not Detect) U Marijuana (THC) Screen (Not Detect) Ethyl Alcohol 124 mg/dL COVID-19 (ERIN) (Negative) COVID-19 Clin Com <NASRIN Jaffe - Last Filed: 10/30/20 08:39> Discharge Plan Discharge Clinical Impression: Suicidal ideation, Depression <NASRIN Huynh - Last Filed: 10/30/20 00:58> Prescriptions: No Action sucralfate 1 gram tablet 1 tab PO QID RF: 0 tamsulosin 0.4 mg capsule 1 cap PO DAILY RF: 0 verapamil 40 mg Tablet 40 mg PO TID 30 Days Qty: 90 RF: 0 atenolol 25 mg Tablet 25 mg PO DAILY 30 Days Qty: 30 RF: 0 fluticasone propionate 50 mcg/actuation [place],Suspension 2 spray intranasal DAILY Qty: 0 RF: 0 zolpidem [Ambien] 10 mg Tablet 10 mg PO BEDTIME PRN (Reason: Sleep) 30 Days Qty: 30 RF: 0 clonazepam 1 mg tablet 1 tab PO BID RF: 0 chlorpromazine 50 mg tablet 1 tab PO QID PRN (Reason: psychosis) RF: 0 clonidine HCl 0.3 mg tablet 1 tab PO BEDTIME RF: 0 methocarbamol 500 mg tablet 1 tab PO QID RF: 0 mirtazapine 45 mg tablet 1 tab PO BEDTIME RF: 0 omeprazole 20 mg capsule,delayed release(DR/EC) 1 cap PO DAILY RF: 0 <NASRIN Huynh - Last Filed: 10/30/20 00:58> ED Observation ED Observation Progress Notes 1: Progress Note: 10/30/20 - 08:37 NASRIN Jaffe - physician observation continued. Vital signs remained stable within normal limits. Patient had an uneventful night. He is currently resting respirations even and unlabored in no apparent distress. No focal defects are noted. Lungs clear to auscultation. CV RRR. Abdomen is soft and nontender. Labs reviewed from 10/30/2020 and patient with a mild baseline anemia. Otherwise all other labs are within normal limits. Patient negative for all drugs. ETOH level on arrival was 124. Patient negative for COVID on 10/29/2020. Otherwise patient is a [facility] Section 12 inpatient bed search will continue to monitor. <NASRIN Jaffe - Last Filed: 10/30/20 08:39>
[2020-10-30 00:13] LABS: Glucose, Whole Blood 81 mg/dL (60-115)
[2020-10-30 00:31] LABS: Basophils Percent Auto 0.4 % (0-2); Eosinophils Absolute Auto 0.2 X10*3/uL (0.0-0.4); Eosinophils Percent Auto 2.5 % (0-4); Hematocrit 34.5 % (42-52); Hemoglobin 11.4 g/dl (14.0-18.0); Imm Gran Abs Auto 0.03 X10*3/uL (0.00-0.03); Imm Gran Pct Auto 0.4 % (0.0-0.4); Lymphocytes Absolute Auto 3.1 X10*3/uL (1.2-4.9); Lymphocytes Percent Auto 39.1 % (20-40); MANUAL DIFF FLAG NO; Mean Corpuscular Hemoglobin 30.7 pg (27.0-33.0); Mean Platelet Volume 8.9 fL (9.4-12.4); Monocytes Absolute Auto 0.4 X10*3/uL (0.1-1.2); Monocytes Percent Auto 5.2 % (2-11); Neutrophils Absolute Auto 4.2 X10*3/uL (2.0-8.3); Neutrophils Percent Auto 52.4 % (45-73); Platelet Count 251 X10*3/uL (160-400); Red Blood Count 3.71 X10*6/uL (4.60-5.80); Red Cell Distribution Width 14.6 % (11.0-16.0); White Blood Count 7.9 X10*3/uL (4.8-10.8)
[2020-10-30 00:50] LABS: Ethanol 124 mg/dL
[2020-10-30 00:52] LABS: Anion Gap 17 (12-20); Blood Urea Nitrogen 14 mg/dL (9-16); Calcium 8.6 mg/dL (8.4-10.2); Carbon Dioxide 19 mmol/L (22-29); Chloride 111 mmol/L (96-108); Creatinine Clr Calc Pharmacy 98.5; Estimated Glomerular Filt Rate > 60; Glucose Random 79 mg/dL (60-115); Potassium 3.4 mmol/L (3.3-5.1); Sodium 144 mmol/L (135-145)
--- NOTE | 2020-10-30 03:17 | PC.NURSE ---
N clinician with patient, patient seems engaged appropriately, will continue to monitor.
--- NOTE | 2020-10-30 05:23 | PC.NURSE ---
Patient slept through the night, no distress observed/reported, patient got seen by N, patient disposition is Section 12 inpatient Bed Search, will continue to monitor.
--- NOTE | 2020-10-30 07:20 | PC.NURSE ---
patient appears to remain at rest at present, patient on couch in group area, patient appears in no distress.
[2020-10-30] MEDS: Sucralfate 1 GM TABLET PO ×4 (07:33→21:19)
[2020-10-30] MEDS: clonazePAM 1 MG TABLET PO ×2 (07:38→21:19)
[2020-10-30] MEDS: atenoloL 25 MG TABLET PO (08:50)
[2020-10-30] MEDS: Cyclobenzaprine HCl 10 MG TABLET PO ×2 (08:50→21:19)
[2020-10-30] MEDS: Tamsulosin HCL 0.4 MG CAPSULE PO (08:50)
[2020-10-30] MEDS: Omeprazole 20 MG CAPSULE.DR PO (08:50)
[2020-10-30] MEDS: VerapamiL HCL 40 MG TABLET PO ×2 (09:15→21:19)
[2020-10-30] MEDS: chlorproMAZINE HCl 25 MG TABLET 50 MG PO (18:45)
[2020-10-30] MEDS: Mirtazapine 15 MG TABLET 45 MG PO (21:18)
[2020-10-30] MEDS: cloNIDine HCL 0.1 MG TABLET 0.3 MG PO (21:19)
[2020-10-30] MEDS: Zolpidem Tartrate 5 MG TABLET PO (21:25)
[2020-10-31] VITALS (7 sets, daily range): BP systolic 104–125; BP diastolic 64–80; PULSE 56–69; RESP 16–20; TEMP 36.7–37.1; O2SAT 95–97
--- NOTE | 2020-10-31 06:27 | PC.NURSE ---
Patient slept through the night, no distress observed/reported, VSS, behavior appropriate, med compliant, disposition section 12 inpatient bed search, will continue to monitor.
[2020-10-31] MEDS: Sucralfate 1 GM TABLET PO ×4 (08:32→22:13)
[2020-10-31] MEDS: clonazePAM 1 MG TABLET PO ×2 (08:32→22:13)
[2020-10-31] MEDS: atenoloL 25 MG TABLET PO (08:32)
[2020-10-31] MEDS: Cyclobenzaprine HCl 10 MG TABLET PO ×2 (08:32→22:12)
[2020-10-31] MEDS: VerapamiL HCL 40 MG TABLET PO ×2 (08:33→22:13)
[2020-10-31] MEDS: Omeprazole 20 MG CAPSULE.DR PO (08:33)
[2020-10-31] MEDS: Tamsulosin HCL 0.4 MG CAPSULE PO (08:33)
[2020-10-31] MEDS: cloNIDine HCL 0.1 MG TABLET 0.3 MG PO (22:13)
[2020-10-31] MEDS: Zolpidem Tartrate 5 MG TABLET PO (22:13)
[2020-10-31] MEDS: Mirtazapine 15 MG TABLET 45 MG PO (22:14)
--- NOTE | 2020-10-31 22:19 | PC.NURSE ---
Per M5 patient will be not admitted tonight and advised to give patient's night meds, patient made aware, HS meds administered as ordered/patient compliant, VSS, no distress observed/reported at this time, will continue to monitor.
[2020-11-01] VITALS (10 sets, daily range): BP systolic 98–117; BP diastolic 56–71; PULSE 55–83; RESP 14–16; TEMP 36.5–37.1; O2SAT 97–99
--- NOTE | 2020-11-01 05:58 | PC.NURSE ---
Patient slept through the night, OOR x 3 for bathroom use and refreshment, appetite good, behavior appropriate, VSS, med compliant, no distress observed/reported, patient disposition is pending M5 admission, will continue to monitor.
--- NOTE | 2020-11-01 08:13 | PC.NURSE ---
patient is in bed sleeping.
[2020-11-01] MEDS: atenoloL 25 MG TABLET PO (08:29)
[2020-11-01] MEDS: Sucralfate 1 GM TABLET PO ×3 (08:30→20:14)
[2020-11-01] MEDS: clonazePAM 1 MG TABLET PO ×2 (08:30→20:14)
[2020-11-01] MEDS: Omeprazole 20 MG CAPSULE.DR PO (08:30)
[2020-11-01] MEDS: VerapamiL HCL 40 MG TABLET PO ×2 (08:30→20:13)
[2020-11-01] MEDS: Tamsulosin HCL 0.4 MG CAPSULE PO (08:30)
[2020-11-01] MEDS: Cyclobenzaprine HCl 10 MG TABLET PO ×2 (08:30→20:14)
--- NOTE | 2020-11-01 08:58 | ECG_ITS ---
Test Reason : MEDICAL CLEARANCE Blood Pressure : / mmHG Vent. Rate : 052 BPM Atrial Rate : 052 BPM P-R Int : 120 ms QRS Dur : 086 ms QT Int : 424 ms P-R-T Axes : 015 013 017 degrees QTc Int : 394 ms Sinus bradycardia Minimal voltage criteria for LVH, may be normal variant Early repolarization Borderline ECG When compared with ECG of 26-JUL-2020 08:38, Vent. rate has decreased BY 30 BPM T wave inversion now evident in Inferior leads QT has shortened Referred By: Marbin Villa Electronically Signed By:VIKI PINEDO
--- NOTE | 2020-11-01 16:00 | PC.NURSE ---
patient has been calm in cooperative. slept most of the day.
[2020-11-01] MEDS: Loperamide HCl 2 MG CAPSULE PO ×2 (18:10→22:14)
--- NOTE | 2020-11-01 19:18 | PC.ADMIT ---
Pt is a 50 year old male who presents to M5 from [facility] ED at approx 16:20 on a cv status. Pt is covid - Utox + for ETOH. Pt has had prior admissions to in the past. Pt is presently homeless. Pt does has oupt service in the community. Pt presented to [facility] ED secondary to AH which tell him to kill himself. PT endorses [facility] and reports he hears a womans voice and has visuals of snakes and monsters. Pt denies HI but endores SI with plans to jump in front of a car. Pt anxious and depressed. Impaired judgment and impulse control. Pt has a hx of poly substance abuse. Pt was DC from [facility] on 10/23/20 and says the staff wanted to stay longer as he was beginning to stabilize. called for orders and notified of admission. Start treatment plan and monitor for safety.
[2020-11-01] MEDS: Zolpidem Tartrate 5 MG TABLET PO (20:13)
[2020-11-01] MEDS: cloNIDine HCL 0.1 MG TABLET 0.3 MG PO (20:14)
[2020-11-01] MEDS: Mirtazapine 15 MG TABLET 45 MG PO (20:14)
[2020-11-02] MEDS: hydrOXYzine HCL 25 MG TABLET PO (01:56)
[2020-11-02 06:35] VITALS: BP 84/54; PULSE 98; RESP 16; TEMP 36.2; O2SAT 98
[2020-11-02] MEDS: Cyclobenzaprine HCl 10 MG TABLET PO ×2 (08:40→20:04)
[2020-11-02] MEDS: Tamsulosin HCL 0.4 MG CAPSULE PO (08:40)
[2020-11-02] MEDS: Sucralfate 1 GM TABLET PO ×4 (08:40→20:04)
[2020-11-02] MEDS: Omeprazole 20 MG CAPSULE.DR PO (08:41)
[2020-11-02 08:42] VITALS: BP 125/71; PULSE 71
[2020-11-02] MEDS: clonazePAM 1 MG TABLET PO ×2 (08:42→20:04)
[2020-11-02] MEDS: atenoloL 25 MG TABLET PO (08:42)
[2020-11-02] MEDS: VerapamiL HCL 40 MG TABLET PO ×2 (08:42→20:04)
[2020-11-02 08:53] LABS: Estimated Average Glucose 100 mg/dL; Hemoglobin A1c % 5.1 %
[2020-11-02 09:07] LABS: Cholesterol 207 mg/dL; HDL Cholesterol 45 mg/dL; LDL Cholesterol Calculated 139 mg/dl; Triglycerides 117 mg/dL
[2020-11-02 09:28] LABS: Thyroid Stimulating Hormone 0.75 uIU/mL (0.32-4.0)
[2020-11-02 09:57] LABS: Folate 10.9 ng/mL (> or = 4.0); Vitamin B12 412 pg/mL (200-900)
[2020-11-02] MEDS: Fluticasone Propionate Nasal 16 GM SPRAY 2 SPRAY NOSTRIL-B (10:22)
[2020-11-02 14:54] VITALS: BP 100/51; PULSE 63
--- NOTE | 2020-11-02 16:31 | P.HPPS_ITS ---
HPI Chief Complaint: SI Sources of Information: patient interviewed, chart reviewed and crisis/core team assessment reviewed HPI Subjective Notes: [place] Warning and Conditional Voluntary Healthcare Proxy: No Guardianship: No Narrative: The patient is a 50-year-old male past diagnosis of schizoaffective disorder cocaine and opiate use who has been admitted multiple times with complaints of hallucinations thoughts of self harm often in the context of opiate use alcohol use cocaine use. Patient psychiatrist is Dr. philomena Love all as the [facility] patient states he is homeless. The patient was admitted under similar circumstances few weeks ago under the care of Dr. Mistry was discharged patient was then at [facility] psychiatric unit was there approximately 10 days patient is often been positive for opiates or cocaine. He was negative in the emergency room denies recent drug use was in termittently drinking prior to admission denies daily use. During his last hospitalization patient did suffer urinary tension most recently he was treated with mirtazapine Haldol. Patient states he noticed that had done well on Invega patient states he has intrusive auditory hallucinations telling him to harm himself. Has been on clonazepam for an extended period of time his psychiatrist is consult was has not supported his chronic use of clonazepam. Past Psychiatric History: Multiple hospital stays. He has providers at [facility] Medical Evaluation Reviewed: Yes [facility] Medical History Alcohol dependence Anxiety Chest pain Derangement of symphysis pubis Dysphagia GERD (gastroesophageal reflux disease) Major depressive disorder, recurrent severe without psychotic features Opioid abuse Weight loss Surgical History H/O umbilical hernia repair History of colonoscopy History of cystoscopy Family History: Sister with chronic psychosis Social History: Chronically homeless, with poor social support. Unemployed on SSI Substance History: History of opiate alcohol cocaine use has never engaged in ongoing treatment Trauma History: Recent loss of his nephew Diagnostics Vital Signs (24Hr): Vital Signs - 24 hr 11/01/20 18:13 11/01/20 20:00 11/01/20 20:13 Temperature 97.8 F 98.1 F Pulse Rate 83 83 83 Respiratory Rate Blood Pressure 110/68 102/62 102/62 Pulse Oximetry 11/01/20 20:14 11/02/20 06:35 11/02/20 08:42 Temperature 97.1 F Pulse Rate 83 98 71 Respiratory Rate 16 Blood Pressure 102/62 84/54 L 125/71 Pulse Oximetry 98 11/02/20 14:54 Temperature Pulse Rate 63 Respiratory Rate Blood Pressure 100/51 L Pulse Oximetry Body Mass Index 25.0 Labs Results: 10/30/20 00:24 10/30/20 00:24 Labs: Laboratory Results - last 48 hr 11/02/20 11/02/20 11/02/20 08:13 08:14 08:14 Estimat Average Glucose 100 Hemoglobin A1c % 5.1 Triglycerides 117 Cholesterol 207 LDL Cholesterol, Calc 139 HDL Cholesterol 45 Vitamin B12 412 Folate 10.9 TSH 0.75 Meds/Allergies Meds Home Medications Acetaminophen (Acetaminophen 325 Mg Tablet) 650 mg PO Q6H PRN PRN Reason: Headache/Pain Mild Scale (1-3) Al Hydroxide/Mg Hydroxide (Magnesium Hydrox/Alum Hydrox 30 Ml Oral.Susp) 30 ml PO Q6H PRN PRN Reason: Heartburn/Nausea Atenolol (Atenolol 25 Mg Tablet) 25 mg PO DAILY [facility]; Protocol Last Admin: 11/02/20 08:42 Dose: 25 mg Documented by: Chlorpromazine HCl (Chlorpromazine Hcl 25 Mg Tablet) 25 mg PO QID PRN PRN Reason: psychosis Clonazepam (Clonazepam 1 Mg Tablet) 1 mg PO BID [facility] Last Admin: 11/02/20 20:04 Dose: 1 mg Documented by: Clonidine HCl (Clonidine Hcl 0.1 Mg Tablet) 0.3 mg PO BEDTIME [facility]; Protocol Last Admin: 11/02/20 20:04 Dose: 0.3 mg Documented by: Cyclobenzaprine HCl (Cyclobenzaprine Hcl 10 Mg Tablet) 10 mg PO BID [facility] Last Admin: 11/02/20 20:04 Dose: 10 mg Documented by: Fluticasone Propionate (Fluticasone Propionate Nasal 16 Gm [place]) 2 spray NOSTRIL-B DAILY [facility] Last Admin: 11/02/20 10:22 Dose: 2 spray Documented by: Hydroxyzine HCl (Hydroxyzine Hcl 25 Mg Tablet) 25 mg PO Q6H PRN PRN Reason: Anxiety Last Admin: 11/02/20 01:56 Dose: 25 mg Documented by: Loperamide HCl (Loperamide Hcl 2 Mg Capsule) 2 mg PO Q4H PRN PRN Reason: Diarrhea Last Admin: 11/01/20 22:14 Dose: 2 mg Documented by: Magnesium Hydroxide (Milk Of Magnesia 30 Ml Oral.Susp) 30 ml PO DAILY PRN PRN Reason: Constipation Last Admin: 11/02/20 23:45 Dose: 30 ml Documented by: Mirtazapine (Mirtazapine 15 Mg Tablet) 45 mg PO BEDTIME JAMES Last Admin: 11/02/20 20:03 Dose: 45 mg Documented by: Nicotine Polacrilex (Nicotine Polacrilex 2 Mg Gum) 2 mg BUCCAL Q2H PRN PRN Reason: Nicotine Cravings Omeprazole (Omeprazole 20 Mg Capsule.Dr) 20 mg PO DAILY [facility] Last Admin: 11/02/20 08:41 Dose: 20 mg Documented by: Paliperidone (Paliperidone Er 3 Mg Tab.Er.24) 3 mg PO DAILY [facility] Last Admin: 11/02/20 16:55 Dose: 3 mg Documented by: Sucralfate (Sucralfate 1 Gm Tablet) 1 gm PO QIDACHS [facility] Last Admin: 11/02/20 20:04 Dose: 1 gm Documented by: Tamsulosin HCl (Tamsulosin Hcl 0.4 Mg Capsule) 0.4 mg PO DAILY [facility] Last Admin: 11/02/20 08:40 Dose: 0.4 mg Documented by: Trazodone HCl (Trazodone Hcl 50 Mg Tablet) 50 mg PO BEDTIME PRN PRN Reason: Insomnia Last Admin: 11/02/20 23:46 Dose: 50 mg Documented by: Verapamil HCl (Verapamil Hcl 40 Mg Tablet) 40 mg PO TID [facility]; Protocol Last Admin: 11/02/20 20:04 Dose: 40 mg Documented by: Zolpidem Tartrate (Zolpidem Tartrate 5 Mg Tablet) 5 mg PO BEDTIME PRN PRN Reason: Sleep Last Admin: 11/02/20 20:05 Dose: 5 mg Documented by: Allergies Allergies Allergy/AdvReac Type Severity Reaction Status Date / Time trazodone [TRAZODONE] Allergy Severe FACIAL Verified 04/07/20 09:20 SWELLING, swelling cat dander [CATS] Allergy Intermediate FACIAL Verified 04/07/20 09:20 ITCHING doxepin [DOXEPIN] Allergy Intermediate WEIGHT Verified 04/07/20 09:20 GAIN/LEG SWELLING Iodinated Contrast Media Allergy Intermediate ITCHING Verified 04/07/20 09:20 [IV DYE, IODINE CONTAINING CONTRAST ] nitroglycerin [NITROGLYCERIN] Allergy Unknown UNKNOWN Verified 04/07/20 09:20 tramadol [TRAMADOL] Allergy Unknown UNKNOWN, Verified 04/07/20 09:20 dry mouth ibuprofen [From MOTRIN] AdvReac Intermediate GI UPSET Verified 04/07/20 09:20 quetiapine [From SEROQUEL] AdvReac Intermediate FACIAL Verified 04/07/20 09:20 SWELLING aspirin [ASPIRIN] AdvReac Mild Stomach Verified 04/07/20 09:20 Upset Ibuprofen Allergy Unknown stomach Uncoded 04/07/20 09:20 ache IV contrast Allergy Unknown Unknown Uncoded 04/07/20 09:20 Motrin Allergy Unknown stomach Uncoded 04/07/20 09:20 pain Mental Status Exam Mental Status Exam Patient Appearance: Well Grooomed Patient Orientation: Person, Place, Time and Situation Level of Consciousness: Awake Patient Behavior: Appropriate Mood Description: Constricted, Depressed and Apprehensive Affect Description: Constricted and Anxious Patient Cognition Impaired: No Ability to Follow Directions: Good Speech Pattern: Clear Memory Description: Intact Hallucinations: Auditory (Telling him to harm harm himself) Delusions: Not Present Perceptual Disturbances: Hallucinations Thought Process: Goal Oriented Thought Content: positive for Preoccupation, positive for Suicidal Ideation (States he is safe in this setting) and negative for Homicidal Ideation Depressive Symptoms: Increased Anxiety Judgement: Fair Assessment & Plan Assessment & Plan (1) Schizoaffective disorder: Status: Acute Qualifiers: Schizoaffective disorder type: depressive Qualified Code(s): F25.1 - S chizoaffective disorder, depressive type Code(s): F25.9 - Schizoaffective disorder, unspecified Assessment and Plan: Monitor response to additional Invega consider long-acting injectable (2) Suicidal ideation: Status: Acute Code(s): R45.851 - Suicidal ideations Assessment and Plan: Denies active self-harm monitor response to milieu and treatment (3) Opioid use disorder: Status: Acute Code(s): F11.99 - Opioid use, unspecified with unspecified opioid-induced disorder Assessment and Plan: Monitor for detox encourage CSS referral (4) Alcohol use disorder: Status: Acute Assessment and Plan: Monitor for detox consider CSS referral Patient educated on: medication risk/benefits and substance abuse Reason for continued inpatient stay Substantial Risk for: harm to self, inability to function and rapid d ecompensation
[2020-11-02] MEDS: Paliperidone ER 3 MG TAB.ER.24 PO (16:55)
[2020-11-02 18:00] VITALS: BP 102/59; PULSE 80; TEMP 37.1
[2020-11-02 19:45] VITALS: BP 102/60; PULSE 73; TEMP 36.7
[2020-11-02] MEDS: Mirtazapine 15 MG TABLET 45 MG PO (20:03)
[2020-11-02 20:04] VITALS: BP 102/60; PULSE 73
[2020-11-02] MEDS: cloNIDine HCL 0.1 MG TABLET 0.3 MG PO (20:04)
[2020-11-02] MEDS: Zolpidem Tartrate 5 MG TABLET PO (20:05)
[2020-11-02] MEDS: Milk of Magnesia 30 ML ORAL.SUSP PO (23:45)
[2020-11-02] MEDS: traZODone HCL 50 MG TABLET PO (23:46)
[2020-11-03 08:37] VITALS: BP 107/63; PULSE 62
[2020-11-03] MEDS: VerapamiL HCL 40 MG TABLET PO ×2 (08:37→20:25)
[2020-11-03] MEDS: Cyclobenzaprine HCl 10 MG TABLET PO ×2 (08:37→20:16)
[2020-11-03 08:38] VITALS: BP 107/63; PULSE 62
[2020-11-03] MEDS: Omeprazole 20 MG CAPSULE.DR PO (08:38)
[2020-11-03] MEDS: atenoloL 25 MG TABLET PO (08:38)
[2020-11-03] MEDS: Tamsulosin HCL 0.4 MG CAPSULE PO (08:38)
[2020-11-03] MEDS: clonazePAM 1 MG TABLET PO ×2 (08:38→20:17)
[2020-11-03] MEDS: Paliperidone ER 3 MG TAB.ER.24 PO (08:38)
[2020-11-03 08:40] VITALS: BP 107/63; PULSE 62
[2020-11-03] MEDS: Sucralfate 1 GM TABLET PO ×4 (08:53→20:17)
[2020-11-03] MEDS: Fluticasone Propionate Nasal 16 GM SPRAY 2 SPRAY NOSTRIL-B (08:53)
[2020-11-03 14:05] VITALS: BP 105/58; PULSE 74
--- NOTE | 2020-11-03 16:01 | HO.PSYCHPN ---
Subjective Subjective Date of Service: 11/03/20 Reason For Visit: SI Subjective Notes: Conditional Voluntary Interim History: Jerson complains of anxiety and AH He feels that the medication he started is helpful Medication Compliance: Yes Side effects from medications: No Attending Groups: No Review of Systems Acute medical concerns: No Medical Review of Systems: unchanged Review of Systems Review of Systems Constitutional: No Fever, No Chills, No Fatigue, No Malaise Cardiovascular: No Chest Pain, No SOB Respiratory: No Cough Gastrointestinal: No Nausea, No Vomiting, No Abdominal pain Genitourinary: No Dysuria, No Hematuria Musculoskeletal: back pain, No Myalgias Skin: No Skin Lesions, No rash Yes all other systems are reviewed and are negative Mental Status Exam Mental Status Exam Patient Appearance: Well Grooomed Level of Consciousness: Awake and Appropriate Patient Behavior: Appropriate Mood Description: Constricted, Depressed and Apprehensive Affect Description: Constricted and Anxious Speech Pattern: Clear Hallucinations: Auditory Thought Process: Goal Oriented Thought Content: negative for Suicidal Ideation or negative for Homicidal Ideation Diagnostics Vital Signs (24Hr): Vital Signs - 24 hr 11/02/20 18:00 11/02/20 19:45 11/02/20 20:04 Temperature 98.8 F 98.0 F Pulse Rate 80 73 73 Blood Pressure 102/59 L 102/60 102/60 11/03/20 08:37 11/03/20 08:38 11/03/20 08:40 Temperature Pulse Rate 62 62 62 Blood Pressure 107/63 107/63 107/63 11/03/20 14:05 Temperature Pulse Rate 74 Blood Pressure 105/58 L Body Mass Index 25.0 Labs Results: 10/30/20 00:24 10/30/20 00:24 Labs: Laboratory Results - last 48 hr 11/02/20 11/02/20 11/02/20 08:13 08:14 08:14 Estimat Average Glucose 100 Hemoglobin A1c % 5.1 Triglycerides 117 Cholesterol 207 LDL Cholesterol, Calc 139 HDL Cholesterol 45 Vitamin B12 412 Folate 10.9 TSH 0.75 Medications Medications Current Medications Generic Name Dose Route Start Last Admin Trade Name Freq PRN Reason Stop Dose Admin Acetaminophen 650 mg 11/01/20 15:08 Acetaminophen 325 Mg Tablet PO Q6H PRN Headache/Pain Mild Scale (1-3) Al Hydroxide/Mg Hydroxide 30 ml 11/01/20 15:08 Magnesium Hydrox/Alum Hydrox 30 Ml Oral.Susp PO Q6H PRN Heartburn/Nausea Atenolol 25 mg 10/30/20 09:00 11/03/20 08:38 Atenolol 25 Mg Tablet PO 25 mg DAILY JAMES Administration Protocol Chlorpromazine HCl 25 mg 11/02/20 16:33 Chlorpromazine Hcl 25 Mg Tablet PO QID PRN psychosis Clonazepam 1 mg 10/30/20 09:00 11/03/20 08:38 Clonazepam 1 Mg Tablet PO 1 mg BID JAMES Administration Clonidine HCl 0.3 mg 10/30/20 21:00 11/02/20 20:04 Clonidine Hcl 0.1 Mg Tablet PO 0.3 mg BEDTIME JAMES Administration Protocol Cyclobenzaprine HCl 10 mg 10/30/20 09:00 11/03/20 08:37 Cyclobenzaprine Hcl 10 Mg Tablet PO 10 mg BID JAMES Administration Fluticasone Propionate 2 spray 10/30/20 09:00 11/03/20 08:53 Fluticasone Propionate Nasal 16 Gm [place] NOSTRIL-B 2 spray DAILY JAMES Administration Hydroxyzine HCl 25 mg 11/01/20 15:08 11/02/20 01:56 Hydroxyzine Hcl 25 Mg Tablet PO 25 mg Q6H PRN Administration Anxiety Loperamide HCl 2 mg 11/01/20 17:25 11/01/20 22:14 Loperamide Hcl 2 Mg Capsule PO 2 mg Q4H PRN Administration Diarrhea Magnesium Hydroxide 30 ml 11/01/20 15:08 11/02/20 23:45 Milk Of Magnesia 30 Ml Oral.Susp PO 30 ml DAILY PRN Administration Constipation Mirtazapine 45 mg 10/30/20 21:00 11/02/20 20:03 Mirtazapine 15 Mg Tablet PO 45 mg BEDTIME JAMES Administration Nicotine Polacrilex 2 mg 11/02/20 11:32 Nicotine Polacrilex 2 Mg Gum BUCCAL Q2H PRN Nicotine Cravings Omeprazole 20 mg 10/30/20 09:00 11/03/20 08:38 Omeprazole 20 Mg Capsule.Dr PO 20 mg DAILY JAMES Administration Paliperidone 3 mg 11/02/20 16:35 11/03/20 08:38 Paliperidone Er 3 Mg Tab.Er.24 PO 3 mg DAILY JAMES Administration Sucralfate 1 gm 10/30/20 07:30 11/03/20 12:30 Sucralfate 1 Gm Tablet PO 1 gm QIDACHS JAMES Administration Tamsulosin HCl 0.4 mg 10/30/20 09:00 11/03/20 08:38 Tamsulosin Hcl 0.4 Mg Capsule PO 0.4 mg DAILY JAMES Administration Trazodone HCl 50 mg 11/01/20 15:08 11/02/20 23:46 Trazodone Hcl 50 Mg Tablet PO 50 mg BEDTIME PRN Administration Insomnia Verapamil HCl 40 mg 10/30/20 09:00 11/03/20 14:05 Verapamil Hcl 40 Mg Tablet PO Not Given TID [facility] Protocol Zolpidem Tartrate 5 mg 10/30/20 00:53 11/02/20 20:05 Zolpidem Tartrate 5 Mg Tablet PO 5 mg BEDTIME PRN Administration Sleep Allergies Allergies Allergy/AdvReac Type Severity Reaction Status Date / Time trazodone [TRAZODONE] Allergy Severe FACIAL Verified 04/07/20 09:20 SWELLING, swelling cat dander [CATS] Allergy Intermediate FACIAL Verified 04/07/20 09:20 ITCHING doxepin [DOXEPIN] Allergy Intermediate WEIGHT Verified 04/07/20 09:20 GAIN/LEG SWELLING Iodinated Contrast Media Allergy Intermediate ITCHING Verified 04/07/20 09:20 [IV DYE, IODINE CONTAINING CONTRAST ] nitroglycerin [NITROGLYCERIN] Allergy Unknown UNKNOWN Verified 04/07/20 09:20 tramadol [TRAMADOL] Allergy Unknown UNKNOWN, Verified 04/07/20 09:20 dry mouth ibuprofen [From MOTRIN] AdvReac Intermediate GI UPSET Verified 04/07/20 09:20 quetiapine [From SEROQUEL] AdvReac Intermediate FACIAL Verified 04/07/20 09:20 SWELLING aspirin [ASPIRIN] AdvReac Mild Stomach Verified 04/07/20 09:20 Upset Ibuprofen Allergy Unknown stomach Uncoded 04/07/20 09:20 ache IV contrast Allergy Unknown Unknown Uncoded 04/07/20 09:20 Motrin Allergy Unknown stomach Uncoded 04/07/20 09:20 pain Assessment & Plan Assessment & Plan (1) Schizoaffective disorder: Qualifiers: Schizoaffective disorder type: depressive Qualified Code(s): F25.1 - Schizoaffective disorder, depressive type Status: Acute Code(s): F25.9 - Schizoaffective disorder, unspecified Assessment and Plan: Monitor response to additional Invega consider long-acting injectable (2) Suicidal ideation: Status: Acute Code(s): R45.851 - Suicidal ideations Assessment and Plan: Denies active self-harm monitor response to milieu and treatment (3) Opioid use disorder: Status: Acute Code(s): F11.99 - Opioid use, unspecified with unspecified opioid-induced disorder Assessment and Plan: Monitor for detox encourage CSS referral (4) Alcohol use disorder: Status: Acute Assessment and Plan: Monitor for detox consider CSS referral Assessment and Plan: No change to the current treatment plan Greater than 50% of the session was spent on counseling and/or coordination of care Patient educated on: diagnosis, medication risk/benefits and substance abuse Informed Consent: further education needed Reason for contiued inpatient stay Substantial Risk for: rapid decompensation
[2020-11-03 18:00] VITALS: BP 130/77; PULSE 94; RESP 16
[2020-11-03] MEDS: Mirtazapine 15 MG TABLET 45 MG PO (20:16)
[2020-11-03 20:25] VITALS: BP 130/77; PULSE 94
[2020-11-03] MEDS: cloNIDine HCL 0.1 MG TABLET 0.3 MG PO (20:25)
[2020-11-03] MEDS: Zolpidem Tartrate 5 MG TABLET PO (20:25)
[2020-11-03] MEDS: Magnesium Hydrox/Alum Hydrox 30 ML ORAL.SUSP PO (23:34)
[2020-11-04 06:00] VITALS: BP 113/60; PULSE 78; RESP 18; TEMP 36.2; O2SAT 94
[2020-11-04] MEDS: Acetaminophen 325 MG TABLET 650 MG PO (06:21)
[2020-11-04 07:57] VITALS: BP 118/65; PULSE 75
[2020-11-04] MEDS: Sucralfate 1 GM TABLET PO ×4 (07:57→20:08)
[2020-11-04] MEDS: clonazePAM 1 MG TABLET PO ×2 (07:57→21:18)
[2020-11-04] MEDS: atenoloL 25 MG TABLET PO (07:57)
[2020-11-04] MEDS: Paliperidone ER 3 MG TAB.ER.24 PO (07:57)
[2020-11-04] MEDS: Tamsulosin HCL 0.4 MG CAPSULE PO (07:57)
[2020-11-04] MEDS: Cyclobenzaprine HCl 10 MG TABLET PO ×2 (07:57→20:06)
[2020-11-04] MEDS: VerapamiL HCL 40 MG TABLET PO ×3 (07:57→20:05)
[2020-11-04] MEDS: Omeprazole 20 MG CAPSULE.DR PO (07:58)
[2020-11-04] MEDS: Fluticasone Propionate Nasal 16 GM SPRAY 2 SPRAY NOSTRIL-B (07:59)
[2020-11-04 14:42] VITALS: BP 121/59; PULSE 76
--- NOTE | 2020-11-04 17:22 | P.PNPSI_ITS ---
Subjective Subjective Date of Service: 11/04/20 Reason For Visit: SI Subjective Notes: Conditional Voluntary Interim History: Jerson complains of anxiety and AH He feels that the medication he started is helpful There is no other change Medication Compliance: Yes Side effects from medications: No Attending Groups: No Review of Systems Acute medical concerns: No Medical Review of Systems: unchanged Review of Systems Review of Systems Constitutional: No Fever, No Chills, No Fatigue, No Malaise Cardiovascular: No Chest Pain, No SOB Respiratory: No Cough Gastrointestinal: No Nausea, No Vomiting, No Abdominal pain Genitourinary: No Dysuria, No Hematuria Musculoskeletal: back pain, No Myalgias Skin: No Skin Lesions, No rash Yes all other systems are reviewed and are negative Mental Status Exam Mental Status Exam Patient Appearance: Well Grooomed Level of Consciousness: Awake and Appropriate Patient Behavior: Appropriate Mood Description: Constricted, Depressed and Apprehensive Affect Description: Constricted and Anxious Speech Pattern: Clear Diagnostics Vital Signs (24Hr): Vital Signs - 24 hr 11/03/20 18:00 11/03/20 20:25 11/04/20 06:00 Temperature 97.2 F Pulse Rate 94 94 78 Respiratory Rate 16 18 Blood Pressure 130/77 130/77 113/60 Pulse Oximetry 94 11/04/20 07:57 11/04/20 14:42 Temperature Pulse Rate 75 76 Respiratory Rate Blood Pressure 118/65 121/59 L Pulse Oximetry Body Mass Index 25.0 Labs Results: 10/30/20 00:24 10/30/20 00:24 Medications Medications Current Medications Generic Name Dose Route Start Last Admin Trade Name Freq PRN Reason Stop Dose Admin Acetaminophen 650 mg 11/01/20 15:08 11/04/20 06:21 Acetaminophen 325 Mg Tablet PO 650 mg Q6H PRN Administration Headache/Pain Mild Scale (1-3) Al Hydroxide/Mg Hydroxide 30 ml 11/01/20 15:08 11/03/20 23:34 Magnesium Hydrox/Alum Hydrox 30 Ml Oral.Susp PO 30 ml Q6H PRN Administration Heartburn/Nausea Atenolol 25 mg 10/30/20 09:00 11/04/20 07:57 Atenolol 25 Mg Tablet PO 25 mg DAILY JAMES Administration Protocol Chlorpromazine HCl 25 mg 11/02/20 16:33 Chlorpromazine Hcl 25 Mg Tablet PO QID PRN psychosis Clonidine HCl 0.3 mg 10/30/20 21:00 11/03/20 20:25 Clonidine Hcl 0.1 Mg Tablet PO 0.3 mg BEDTIME JAMES Administration Protocol Cyclobenzaprine HCl 10 mg 10/30/20 09:00 11/04/20 07:57 Cyclobenzaprine Hcl 10 Mg Tablet PO 10 mg BID JAMES Administration Fluticasone Propionate 2 spray 10/30/20 09:00 11/04/20 07:59 Fluticasone Propionate Nasal 16 Gm [place] NOSTRIL-B 2 spray DAILY JAMES Administration Hydroxyzine HCl 25 mg 11/01/20 15:08 11/02/20 01:56 Hydroxyzine Hcl 25 Mg Tablet PO 25 mg Q6H PRN Administration Anxiety Loperamide HCl 2 mg 11/01/20 17:25 11/01/20 22:14 Loperamide Hcl 2 Mg Capsule PO 2 mg Q4H PRN Administration Diarrhea Magnesium Hydroxide 30 ml 11/01/20 15:08 11/02/20 23:45 Milk Of Magnesia 30 Ml Oral.Susp PO 30 ml DAILY PRN Administration Constipation Mirtazapine 45 mg 10/30/20 21:00 11/03/20 20:16 Mirtazapine 15 Mg Tablet PO 45 mg BEDTIME JAMES Administration Nicotine Polacrilex 2 mg 11/02/20 11:32 Nicotine Polacrilex 2 Mg Gum BUCCAL Q2H PRN Nicotine Cravings Omeprazole 20 mg 10/30/20 09:00 11/04/20 07:58 Omeprazole 20 Mg Capsule.Dr PO 20 mg DAILY JAMES Administration Paliperidone 3 mg 11/02/20 16:35 11/04/20 07:57 Paliperidone Er 3 Mg Tab.Er.24 PO 3 mg DAILY JAMES Administration Sucralfate 1 gm 10/30/20 07:30 11/04/20 16:18 Sucralfate 1 Gm Tablet PO 1 gm QIDACHS JAMES Administration Tamsulosin HCl 0.4 mg 10/30/20 09:00 11/04/20 07:57 Tamsulosin Hcl 0.4 Mg Capsule PO 0.4 mg DAILY JAMES Administration Trazodone HCl 50 mg 11/01/20 15:08 11/02/20 23:46 Trazodone Hcl 50 Mg Tablet PO 50 mg BEDTIME PRN Administration Insomnia Verapamil HCl 40 mg 10/30/20 09:00 11/04/20 14:42 Verapamil Hcl 40 Mg Tablet PO 40 mg TID JAMES Administration Protocol Allergies Allergies Allergy/AdvReac Type Severity Reaction Status Date / Time trazodone [TRAZODONE] Allergy Severe FACIAL Verified 04/07/20 09:20 SWELLING, swelling cat dander [CATS] Allergy Intermediate FACIAL Verified 04/07/20 09:20 ITCHING doxepin [DOXEPIN] Allergy Intermediate WEIGHT Verified 04/07/20 09:20 GAIN/LEG SWELLING Iodinated Contrast Media Allergy Intermediate ITCHING Verified 04/07/20 09:20 [IV DYE, IODINE CONTAINING CONTRAST ] nitroglycerin [NITROGLYCERIN] Allergy Unknown UNKNOWN Verified 04/07/20 09:20 tramadol [TRAMADOL] Allergy Unknown UNKNOWN, Verified 04/07/20 09:20 dry mouth ibuprofen [From MOTRIN] AdvReac Intermediate GI UPSET Verified 04/07/20 09:20 quetiapine [From SEROQUEL] AdvReac Intermediate FACIAL Verified 04/07/20 09:20 SWELLING aspirin [ASPIRIN] AdvReac Mild Stomach Verified 04/07/20 09:20 Upset Ibuprofen Allergy Unknown stomach Uncoded 04/07/20 09:20 ache IV contrast Allergy Unknown Unknown Uncoded 04/07/20 09:20 Motrin Allergy Unknown stomach Uncoded 04/07/20 09:20 pain Assessment & Plan Assessment & Plan (1) Schizoaffective disorder: Qualifiers: Schizoaffective disorder type: depressive Qualified Code(s): F25.1 - Schizoaffective disorder, depressive type Status: Acute Code(s): F25.9 - Schizoaffective disorder, unspecified Assessment and Plan: Monitor response to additional Invega consider long-acting injectable (2) Suicidal ideation: Status: Acute Code(s): R45.851 - Suicidal ideations Assessment and Plan: Denies active self-harm monitor response to milieu and treatment (3) Opioid use disorder: Status: Acute Code(s): F11.99 - Opioid use, unspecified with unspecified opioid-induced disorder Assessment and Plan: Monitor for detox encourage CSS referral (4) Alcohol use disorder: Status: Acute Assessment and Plan: Monitor for detox consider CSS referral Assessment and Plan: No change to the current treatment plan Greater than 50% of the session was spent on counseling and/or coordination of care Patient educated on: diagnosis, medication risk/benefits and substance abuse Informed Consent: further education needed Reason for contiued inpatient stay Substantial Risk for: rapid decompensation
[2020-11-04 18:00] VITALS: BP 133/65; PULSE 71; TEMP 36.8
[2020-11-04 20:05] VITALS: BP 133/65; PULSE 71
[2020-11-04] MEDS: Mirtazapine 15 MG TABLET 45 MG PO (20:05)
[2020-11-04 20:08] VITALS: BP 133/65; PULSE 71
[2020-11-04] MEDS: traZODone HCL 50 MG TABLET PO (20:08)
[2020-11-04] MEDS: cloNIDine HCL 0.1 MG TABLET 0.3 MG PO (20:08)
[2020-11-04] MEDS: Zolpidem Tartrate 5 MG TABLET PO (21:18)
[2020-11-04] MEDS: Magnesium Hydrox/Alum Hydrox 30 ML ORAL.SUSP PO (22:16)
[2020-11-05 06:00] VITALS: BP 126/68; PULSE 72; RESP 18; TEMP 35.8; O2SAT 98
[2020-11-05] MEDS: clonazePAM 1 MG TABLET PO ×2 (08:15→20:54)
[2020-11-05] MEDS: Tamsulosin HCL 0.4 MG CAPSULE PO (08:16)
[2020-11-05] MEDS: Omeprazole 20 MG CAPSULE.DR PO (08:16)
[2020-11-05] MEDS: Cyclobenzaprine HCl 10 MG TABLET PO ×2 (08:16→20:55)
[2020-11-05 08:17] VITALS: BP 114/58; BP 114/63; PULSE 63
[2020-11-05] MEDS: atenoloL 25 MG TABLET PO (08:17)
[2020-11-05] MEDS: VerapamiL HCL 40 MG TABLET PO ×3 (08:17→20:54)
[2020-11-05] MEDS: Paliperidone ER 3 MG TAB.ER.24 PO (08:17)
[2020-11-05] MEDS: Fluticasone Propionate Nasal 16 GM SPRAY 2 SPRAY NOSTRIL-B (10:51)
[2020-11-05] MEDS: Acetaminophen 325 MG TABLET 650 MG PO ×2 (12:05→18:59)
--- NOTE | 2020-11-05 13:56 | HO.PSYCHPN ---
Subjective Subjective Date of Service: 11/05/20 Reason For Visit: SI Subjective Notes: Diggs Warning and Conditional Voluntary Guardianship: No Interim History: Patient with limited insight agreeable to change to Abilify from Invega refusing to consider tapering clonazepam feels his substance use is not an issue Medication Compliance: Yes Mental Status Exam Mental Status Exam Patient Appearance: Well Grooomed and Appropriate Level of Consciousness: Awake and Appropriate Patient Behavior: Appropriate Mood Description: Constricted, Depressed, Blunted and Apprehensive Affect Description: Constricted, Depressed and Anxious Speech Pattern: Clear Hallucinations: Auditory (vague denies intent) Delusions: Not Present Thought Content: positive for Preoccupation and positive for Suicidal Ideation (denies active ) Depressive Symptoms: Increased Anxiety, Muscle Tension and Increased Irritability Judgement: Fair Diagnostics Vital Signs (24Hr): Vital Signs - 24 hr 11/04/20 14:42 11/04/20 18:00 11/04/20 20:05 Temperature 98.2 F Pulse Rate 76 71 71 Respiratory Rate Blood Pressure 121/59 L 133/65 133/65 Pulse Oximetry 11/04/20 20:08 11/05/20 06:00 11/05/20 08:17 Temperature 96.4 F L Pulse Rate 71 72 63 Respiratory Rate 18 Blood Pressure 133/65 126/68 114/63 Pulse Oximetry 98 Body Mass Index 25.0 Labs Results: 10/30/20 00:24 10/30/20 00:24 Medications Medications Current Medications Generic Name Dose Route Start Last Admin Trade Name Freq PRN Reason Stop Dose Admin Acetaminophen 650 mg 11/01/20 15:08 11/05/20 12:05 Acetaminophen 325 Mg Tablet PO 650 mg Q6H PRN Administration Headache/Pain Mild Scale (1-3) Al Hydroxide/Mg Hydroxide 30 ml 11/01/20 15:08 11/04/20 22:16 Magnesium Hydrox/Alum Hydrox 30 Ml Oral.Susp PO 30 ml Q6H PRN Administration Heartburn/Nausea Aripiprazole 5 mg 11/06/20 09:00 Aripiprazole 5 Mg Tablet PO DAILY JAMES Atenolol 25 mg 10/30/20 09:00 11/05/20 08:17 Atenolol 25 Mg Tablet PO 25 mg DAILY JAMES Administration Protocol Chlorpromazine HCl 25 mg 11/02/20 16:33 Chlorpromazine Hcl 25 Mg Tablet PO QID PRN psychosis Clonazepam 1 mg 11/04/20 21:15 11/05/20 08:15 Clonazepam 1 Mg Tablet PO 1 mg BID JAMES Administration Clonidine HCl 0.3 mg 10/30/20 21:00 11/04/20 20:08 Clonidine Hcl 0.1 Mg Tablet PO 0.3 mg BEDTIME JAMES Administration Protocol Cyclobenzaprine HCl 10 mg 10/30/20 09:00 11/05/20 08:16 Cyclobenzaprine Hcl 10 Mg Tablet PO 10 mg BID JAMES Administration Fluticasone Propionate 2 spray 10/30/20 09:00 11/05/20 10:51 Fluticasone Propionate Nasal 16 Gm [place] NOSTRIL-B 2 spray DAILY JAMES Administration Hydroxyzine HCl 25 mg 11/01/20 15:08 11/02/20 01:56 Hydroxyzine Hcl 25 Mg Tablet PO 25 mg Q6H PRN Administration Anxiety Loperamide HCl 2 mg 11/01/20 17:25 11/01/20 22:14 Loperamide Hcl 2 Mg Capsule PO 2 mg Q4H PRN Administration Diarrhea Magnesium Hydroxide 30 ml 11/01/20 15:08 11/02/20 23:45 Milk Of Magnesia 30 Ml Oral.Susp PO 30 ml DAILY PRN Administration Constipation Mirtazapine 45 mg 10/30/20 21:00 11/04/20 20:05 Mirtazapine 15 Mg Tablet PO 45 mg BEDTIME JAMES Administration Nicotine Polacrilex 2 mg 11/02/20 11:32 Nicotine Polacrilex 2 Mg Gum BUCCAL Q2H PRN Nicotine Cravings Omeprazole 20 mg 10/30/20 09:00 11/05/20 08:16 Omeprazole 20 Mg Capsule.Dr PO 20 mg DAILY JAMES Administration Sucralfate 1 gm 10/30/20 07:30 11/05/20 12:11 Sucralfate 1 Gm Tablet PO Not Given QIDACHS JAMES Tamsulosin HCl 0.4 mg 10/30/20 09:00 11/05/20 08:16 Tamsulosin Hcl 0.4 Mg Capsule PO 0.4 mg DAILY JAMES Administration Trazodone HCl 50 mg 11/01/20 15:08 11/04/20 20:08 Trazodone Hcl 50 Mg Tablet PO 50 mg BEDTIME PRN Administration Insomnia Verapamil HCl 40 mg 10/30/20 09:00 11/05/20 08:17 Verapamil Hcl 40 Mg Tablet PO 40 mg TID [facility] Administration Protocol Zolpidem Tartrate 5 mg 11/05/20 13:52 Zolpidem Tartrate 5 Mg Tablet PO BEDTIME PRN Insomnia Allergies Allergies Allergy/AdvReac Type Severity Reaction Status Date / Time trazodone [TRAZODONE] Allergy Severe FACIAL Verified 04/07/20 09:20 SWELLING, swelling cat dander [CATS] Allergy Intermediate FACIAL Verified 04/07/20 09:20 ITCHING doxepin [DOXEPIN] Allergy Intermediate WEIGHT Verified 04/07/20 09:20 GAIN/LEG SWELLING Iodinated Contrast Media Allergy Intermediate ITCHING Verified 04/07/20 09:20 [IV DYE, IODINE CONTAINING CONTRAST ] nitroglycerin [NITROGLYCERIN] Allergy Unknown UNKNOWN Verified 04/07/20 09:20 tramadol [TRAMADOL] Allergy Unknown UNKNOWN, Verified 04/07/20 09:20 dry mouth ibuprofen [From MOTRIN] AdvReac Intermediate GI UPSET Verified 04/07/20 09:20 quetiapine [From SEROQUEL] AdvReac Intermediate FACIAL Verified 04/07/20 09:20 SWELLING aspirin [ASPIRIN] AdvReac Mild Stomach Verified 04/07/20 09:20 Upset Ibuprofen Allergy Unknown stomach Uncoded 04/07/20 09:20 ache IV contrast Allergy Unknown Unknown Uncoded 04/07/20 09:20 Motrin Allergy Unknown stomach Uncoded 04/07/20 09:20 pain Assessment & Plan Assessment & Plan (1) Schizoaffective disorder: Qualifiers: Schizoaffective disorder type: depressive Qualified Code(s): F25.1 - Schizoaffective disorder, depressive type Status: Acute Code(s): F25.9 - Schizoaffective disorder, unspecified Assessment and Plan: Monitor response to additional Invega consider long-acting injectable Questionable history of allergic reaction to Invega injectable discussed with patient trying Abilify and converting to Abilify injectable encourage longer-term treatment for substance use (2) Suicidal ideation: Status: Acute Code(s): R45.851 - Suicidal ideations Assessment and Plan: Denies active self-harm monitor response to milieu and treatment (3) Opioid use disorder: Status: Acute Code(s): F11.99 - Opioid use, unspecified with unspecified opioid-induced disorder Assessment and Plan: Monitor for detox encourage CSS referral (4) Alcohol use disorder: Status: Acute Assessment and Plan: Monitor for detox consider CSS referral Assessment and Plan: No change to the current treatment plan Greater than 50% of the session was spent on counseling and/or coordination of care Reason for contiued inpatient stay Substantial Risk for: harm to self and rapid decompensation
[2020-11-05 14:41] VITALS: BP 114/65; PULSE 66
[2020-11-05] MEDS: Sucralfate 1 GM TABLET PO ×2 (16:59→20:56)
[2020-11-05 20:54] VITALS: BP 123/68; PULSE 95
[2020-11-05] MEDS: cloNIDine HCL 0.1 MG TABLET 0.3 MG PO (20:54)
[2020-11-05] MEDS: Mirtazapine 15 MG TABLET 45 MG PO (20:54)
[2020-11-05 20:55] VITALS: BP 123/68; PULSE 95; TEMP 36.5
[2020-11-05] MEDS: Zolpidem Tartrate 5 MG TABLET PO (20:59)
[2020-11-06 06:00] VITALS: BP 120/70; PULSE 88; RESP 18; TEMP 35.5; O2SAT 98
[2020-11-06] MEDS: ARIPiprazole 5 MG TABLET PO (08:30)
[2020-11-06] MEDS: Tamsulosin HCL 0.4 MG CAPSULE PO (08:30)
[2020-11-06] MEDS: Omeprazole 20 MG CAPSULE.DR PO (08:30)
[2020-11-06] MEDS: Cyclobenzaprine HCl 10 MG TABLET PO ×2 (08:31→20:02)
[2020-11-06] MEDS: clonazePAM 1 MG TABLET PO ×2 (08:31→20:02)
[2020-11-06 08:33] VITALS: BP 114/71; PULSE 79
[2020-11-06] MEDS: VerapamiL HCL 40 MG TABLET PO ×3 (08:33→20:03)
[2020-11-06] MEDS: atenoloL 25 MG TABLET PO (08:33)
[2020-11-06] MEDS: Acetaminophen 325 MG TABLET 650 MG PO (11:03)
[2020-11-06] MEDS: Fluticasone Propionate Nasal 16 GM SPRAY 2 SPRAY NOSTRIL-B (11:04)
[2020-11-06 14:46] VITALS: BP 124/70; PULSE 77
[2020-11-06] MEDS: hydrOXYzine HCL 25 MG TABLET PO (14:53)
[2020-11-06 16:15] VITALS: BP 118/64; PULSE 76; TEMP 37.1
[2020-11-06] MEDS: Sucralfate 1 GM TABLET PO (16:35)
--- NOTE | 2020-11-06 16:50 | P.PNPSI_ITS ---
Subjective Subjective Date of Service: 11/06/20 Reason For Visit: SI Subjective Notes: Diggs Warning and Conditional Voluntary Healthcare Proxy: No Guardianship: No Interim History: Patient seen and discussed with team. Patient evaluated this morning and upon interview he reports he does not notice a difference on abilify yet. Says his mood is so, so. He complains of poor sleep, says he is only sleeping 2 hours at night and that he needs a stronger medication. He reports he was being prescribed ambien 10 mg by his OP psychiatrist, Dr. Love and this was confirmed on masspat, says on this dose he could sleep 5 hours at night. He says he cannot take trazodone or seroquel due to feeling activated on these. Says his energy is so, so. He reports having symptoms of panic all the time. Unable to say why this is. He continues to endorse AH, says he hears a woman's voice that tells him to kill myself. Reports he feels safe on the unit. Denies irritability or aggressive ideation. Denies SI/SIB upon inquiry. In the milieu, he is isolative, says this is due to language barrier and so he does not understand what is being said in group. Also continues to complain of back pain, says tylenol does not help. Medication Compliance: Yes Side effects from medications: No Attending Groups: Intermittent Review of Systems Acute medical concerns: No Medical Review of Systems: unchanged Review of Systems: CVS: No c/o chest pain, palpitations, no SOB [employer]: No c/o dizziness, headache GI: No c/o Nausea, Vomiting, diarrhea, constipation or heartburn Mental Status Exam Mental Status Exam Narrative: Okay grooming/hygiene, in hospital gown. Good eye contact, attentive. fine bilateral hand tremor, not new. No abnormal involuntary movements. Calm, cooperative, engaged. Non-pressured speech, spontaneous with regular rate and rhythm, normal volume and prosody. No prolonged speech latency or dysarthria. Mood is ?so, so,? affect is euthymic. Denies SI/SIB/HI upon inquiry. Endorses AH. Denies VH or delusional thought content. Thoughts are coherent, organized. No known cognitive or memory impairment. Insight/ Judgment fair and adequate. Diagnostics Vital Signs (24Hr): Vital Signs - 24 hr 11/05/20 20:54 11/05/20 20:55 11/06/20 06:00 Temperature 97.7 F 96 F L Pulse Rate 95 95 88 Respiratory Rate 18 Blood Pressure 123/68 123/68 120/70 Pulse Oximetry 98 11/06/20 08:33 11/06/20 14:46 11/06/20 16:15 Temperature 98.8 F Pulse Rate 79 77 76 Respiratory Rate Blood Pressure 114/71 124/70 118/64 Pulse Oximetry Body Mass Index 25.0 Labs Results: 10/30/20 00:24 10/30/20 00:24 Medications Medications Current Medications Generic Name Dose Route Start Last Admin Trade Name Freq PRN Reason Stop Dose Admin Acetaminophen 650 mg 11/01/20 15:08 11/06/20 11:03 Acetaminophen 325 Mg Tablet PO 650 mg Q6H PRN Administration Headache/Pain Mild Scale (1-3) Al Hydroxide/Mg Hydroxide 30 ml 11/01/20 15:08 11/04/20 22:16 Magnesium Hydrox/Alum Hydrox 30 Ml Oral.Susp PO 30 ml Q6H PRN Administration Heartburn/Nausea Aripiprazole 5 mg 11/06/20 09:00 11/06/20 08:30 Aripiprazole 5 Mg Tablet PO 5 mg DAILY JAMES Administration Atenolol 25 mg 10/30/20 09:00 11/06/20 08:33 Atenolol 25 Mg Tablet PO 25 mg DAILY JAMES Administration Protocol Chlorpromazine HCl 25 mg 11/02/20 16:33 Chlorpromazine Hcl 25 Mg Tablet PO QID PRN psychosis Clonazepam 1 mg 11/04/20 21:15 11/06/20 08:31 Clonazepam 1 Mg Tablet PO 1 mg BID JAMES Administration Clonidine HCl 0.3 mg 10/30/20 21:00 11/05/20 20:54 Clonidine Hcl 0.1 Mg Tablet PO 0.3 mg BEDTIME JAMES Administration Protocol Cyclobenzaprine HCl 10 mg 10/30/20 09:00 11/06/20 08:31 Cyclobenzaprine Hcl 10 Mg Tablet PO 10 mg BID JAMES Administration Fluticasone Propionate 2 spray 10/30/20 09:00 11/06/20 11:04 Fluticasone Propionate Nasal 16 Gm [place] NOSTRIL-B 2 spray DAILY JAMES Administration Hydroxyzine HCl 25 mg 11/01/20 15:08 11/06/20 14:53 Hydroxyzine Hcl 25 Mg Tablet PO 25 mg Q6H PRN Administration Anxiety Loperamide HCl 2 mg 11/01/20 17:25 11/01/20 22:14 Loperamide Hcl 2 Mg Capsule PO 2 mg Q4H PRN Administration Diarrhea Magnesium Hydroxide 30 ml 11/01/20 15:08 11/02/20 23:45 Milk Of Magnesia 30 Ml Oral.Susp PO 30 ml DAILY PRN Administration Constipation Mirtazapine 45 mg 10/30/20 21:00 11/05/20 20:54 Mirtazapine 15 Mg Tablet PO 45 mg BEDTIME JAMES Administration Nicotine Polacrilex 2 mg 11/02/20 11:32 Nicotine Polacrilex 2 Mg Gum BUCCAL Q2H PRN Nicotine Cravings Omeprazole 20 mg 10/30/20 09:00 11/06/20 08:30 Omeprazole 20 Mg Capsule.Dr PO 20 mg DAILY JAMES Administration Sucralfate 1 gm 10/30/20 07:30 11/06/20 16:35 Sucralfate 1 Gm Tablet PO 1 gm QIDACHS JAMES Administration Tamsulosin HCl 0.4 mg 10/30/20 09:00 11/06/20 08:30 Tamsulosin Hcl 0.4 Mg Capsule PO 0.4 mg DAILY JAMES Administration Trazodone HCl 50 mg 11/01/20 15:08 11/04/20 20:08 Trazodone Hcl 50 Mg Tablet PO 50 mg BEDTIME PRN Administration Insomnia Verapamil HCl 40 mg 10/30/20 09:00 11/06/20 14:46 Verapamil Hcl 40 Mg Tablet PO 40 mg TID JAMES Administration Protocol Zolpidem Tartrate 10 mg 11/06/20 16:49 Zolpidem Tartrate 5 Mg Tablet PO BEDTIME PRN Insomnia Allergies Allergies Allergy/AdvReac Type Severity Reaction Status Date / Time trazodone [TRAZODONE] Allergy Severe FACIAL Verified 04/07/20 09:20 SWELLING, swelling cat dander [CATS] Allergy Intermediate FACIAL Verified 04/07/20 09:20 ITCHING doxepin [DOXEPIN] Allergy Intermediate WEIGHT Verified 04/07/20 09:20 GAIN/LEG SWELLING Iodinated Contrast Media Allergy Intermediate ITCHING Verified 04/07/20 09:20 [IV DYE, IODINE CONTAINING CONTRAST ] nitroglycerin [NITROGLYCERIN] Allergy Unknown UNKNOWN Verified 04/07/20 09:20 tramadol [TRAMADOL] Allergy Unknown UNKNOWN, Verified 04/07/20 09:20 dry mouth ibuprofen [From MOTRIN] AdvReac Intermediate GI UPSET Verified 04/07/20 09:20 quetiapine [From SEROQUEL] AdvReac Intermediate FACIAL Verified 04/07/20 09:20 SWELLING aspirin [ASPIRIN] AdvReac Mild Stomach Verified 04/07/20 09:20 Upset Ibuprofen Allergy Unknown stomach Uncoded 04/07/20 09:20 ache IV contrast Allergy Unknown Unknown Uncoded 04/07/20 09:20 Motrin Allergy Unknown stomach Uncoded 04/07/20 09:20 pain Assessment & Plan Assessment & Plan (1) Schizoaffective disorder: Qualifiers: Schizoaffective disorder type: depressive Qualified Code(s): F25.1 - Schizoaffective disorder, depressive type Status: Acute Code(s): F25.9 - Schizoaffective disorder, unspecified Assessment and Plan: Recently switched from invega PO to abilify PO with discussion of switching to TIRADO. Has hx of multiple antipsychotic treatment, was prescribed haldol by OP psychiatrist, hx of non-adherence secondary to substance use. He does not want to address his substance use issues at this admission. He is not in acute withdrawal. He is complaining of poor sleep, depressed mood, and AH. He is adherent with medications and tolerating them well. 1. Continue abilify PO, monitor for benefit 2. discussed increasing ambien to 10 mg but against unit policy 3. W (2) Suicidal ideation: Status: Acute Code(s): R45.851 - Suicidal ideations Assessment and Plan: Denies active self-harm monitor response to milieu and treatment (3) Opioid use disorder: Status: Acute Code(s): F11.99 - Opioid use, unspecified with unspecified opioid-induced disorder Assessment and Plan: Monitor for detox encourage CSS referral (4) Alcohol use disorder: Status: Acute Assessment and Plan: Monitor for detox consider CSS referral Assessment and Plan: Jerson was recently switched from invego PO to abilify PO with discussion of switching to TIRADO. He has had past trials on multiple antipsychotics, last on haldol PO by Dr. Love outpatient. He is currently complaining of poor sleep, depressed mood, and AH. 1. Continue abilify PO 5 mg and monitor for benefit 2. Discussed increasing ambien to 10 mg but was told this is against unit policy 3. Will re-start amitriptyline 50 mg QHS, as he was taking this outpatient for sleep 4. Monitor response to medications. 5. Monitor for safety in the milieu. Discharge on stabilization. Patient seen. Chart reviewed. Discussed with team. Greater than 50% of the session was spent on counseling and/or coordination of care Reason for contiued inpatient stay Substantial Risk for: harm to self
[2020-11-06 19:45] VITALS: BP 121/61; PULSE 73
[2020-11-06] MEDS: cloNIDine HCL 0.1 MG TABLET 0.3 MG PO (19:45)
[2020-11-06] MEDS: Amitriptyline HCl 50 MG TABLET PO (20:02)
[2020-11-06] MEDS: Mirtazapine 15 MG TABLET 45 MG PO (20:02)
[2020-11-06 20:03] VITALS: BP 121/61; PULSE 73
[2020-11-06] MEDS: Zolpidem Tartrate 5 MG TABLET PO (20:20)
[2020-11-07 05:54] VITALS: BP 99/68; PULSE 73; RESP 18; TEMP 36.6; O2SAT 98
[2020-11-07 08:47] VITALS: BP 127/62; PULSE 79
[2020-11-07] MEDS: clonazePAM 1 MG TABLET PO ×2 (08:47→20:06)
[2020-11-07] MEDS: ARIPiprazole 5 MG TABLET PO (08:47)
[2020-11-07] MEDS: atenoloL 25 MG TABLET PO (08:47)
[2020-11-07] MEDS: VerapamiL HCL 40 MG TABLET PO ×3 (08:47→20:07)
[2020-11-07] MEDS: Tamsulosin HCL 0.4 MG CAPSULE PO (08:48)
[2020-11-07] MEDS: Cyclobenzaprine HCl 10 MG TABLET PO ×2 (08:48→20:07)
[2020-11-07] MEDS: Fluticasone Propionate Nasal 16 GM SPRAY 2 SPRAY NOSTRIL-B (08:48)
[2020-11-07] MEDS: Sucralfate 1 GM TABLET PO ×4 (08:48→20:07)
[2020-11-07] MEDS: Omeprazole 20 MG CAPSULE.DR PO (08:48)
[2020-11-07] MEDS: Acetaminophen 325 MG TABLET 650 MG PO ×2 (13:25→20:06)
[2020-11-07 14:08] VITALS: BP 114/60; PULSE 83
[2020-11-07] MEDS: hydrOXYzine HCL 25 MG TABLET PO (16:25)
[2020-11-07] MEDS: chlorproMAZINE HCl 25 MG TABLET PO (16:25)
--- NOTE | 2020-11-07 17:10 | HO.PSYCHPN ---
Subjective Subjective Date of Service: 11/07/20 Reason For Visit: SI Subjective Notes: Conditional Voluntary Healthcare Proxy: No Guardianship: No Medical Problems Affecting Mental Status: No Interim History: I hear the voice of a woman. I see monsters and snakes. I cannot sleep. I am anxious. Continues to report hearing voices, seeing visions, insomnia, anxiety. Medication Compliance: Yes Side effects from medications: No Attending Groups: No Review of Systems Acute medical concerns: No Medical Review of Systems: unchanged Review of Systems Reports behavioral changes Psychiatric: Reports abnormal sleep pattern, Reports anxiety, Reports behavioral changes, Reports difficulty concentrating, Reports auditory hallucinations, Reports hopelessness, Reports irritability, Reports mood swings, Reports paranoia and Reports visual hallucinations Mental Status Exam Mental Status Exam Patient Appearance: Appropriate Patient Orientation: Person, Place, Time and Situation Level of Consciousness: Alert Patient Behavior: Guarded, Talkative, Anxious, Distractible, Isolative and Good Eye Contact Mood Description: Anxious Affect Description: Constricted Patient Cognition Impaired: No Ability to Follow Directions: Good Speech Pattern: Spontaneous Speech Memory Description: Episodic Impaired Hallucinations: Auditory and Visual Delusions: Present Thought Process: Goal Oriented Thought Content: positive for Goal Oriented Depressive Symptoms: Increased Anxiety and Difficulty Sleeping Judgement: Fair Diagnostics Vital Signs (24Hr): Vital Signs - 24 hr 11/06/20 19:45 11/06/20 20:03 11/07/20 05:54 Temperature 97.8 F Pulse Rate 73 73 73 Respiratory Rate 18 Blood Pressure 121/61 121/61 99/68 Pulse Oximetry 98 11/07/20 08:47 11/07/20 14:08 Temperature Pulse Rate 79 83 Respiratory Rate Blood Pressure 127/62 114/60 Pulse Oximetry Body Mass Index 25.0 Labs Results: 10/30/20 00:24 10/30/20 00:24 Medications Medications Current Medications Generic Name Dose Route Start Last Admin Trade Name Freq PRN Reason Stop Dose Admin Acetaminophen 650 mg 11/01/20 15:08 11/07/20 13:25 Acetaminophen 325 Mg Tablet PO 650 mg Q6H PRN Administration Headache/Pain Mild Scale (1-3) Al Hydroxide/Mg Hydroxide 30 ml 11/01/20 15:08 11/04/20 22:16 Magnesium Hydrox/Alum Hydrox 30 Ml Oral.Susp PO 30 ml Q6H PRN Administration Heartburn/Nausea Amitriptyline HCl 50 mg 11/06/20 21:00 11/06/20 20:02 Amitriptyline Hcl 50 Mg Tablet PO 50 mg BEDTIME JAMES Administration Aripiprazole 10 mg 11/08/20 09:00 Aripiprazole 10 Mg Tablet PO DAILY JAMES Atenolol 25 mg 10/30/20 09:00 11/07/20 08:47 Atenolol 25 Mg Tablet PO 25 mg DAILY JAMES Administration Protocol Chlorpromazine HCl 25 mg 11/02/20 16:33 11/07/20 16:25 Chlorpromazine Hcl 25 Mg Tablet PO 25 mg QID PRN Administration psychosis Clonazepam 1 mg 11/04/20 21:15 11/07/20 08:47 Clonazepam 1 Mg Tablet PO 1 mg BID JAMES Administration Clonidine HCl 0.3 mg 10/30/20 21:00 11/06/20 19:45 Clonidine Hcl 0.1 Mg Tablet PO 0.3 mg BEDTIME JAMES Administration Protocol Cyclobenzaprine HCl 10 mg 10/30/20 09:00 11/07/20 08:48 Cyclobenzaprine Hcl 10 Mg Tablet PO 10 mg BID JAMES Administration Fluticasone Propionate 2 spray 10/30/20 09:00 11/07/20 08:48 Fluticasone Propionate Nasal 16 Gm [place] NOSTRIL-B 2 spray DAILY JAMES Administration Hydroxyzine HCl 25 mg 11/01/20 15:08 11/07/20 16:25 Hydroxyzine Hcl 25 Mg Tablet PO 25 mg Q6H PRN Administration Anxiety Loperamide HCl 2 mg 11/01/20 17:25 11/01/20 22:14 Loperamide Hcl 2 Mg Capsule PO 2 mg Q4H PRN Administration Diarrhea Magnesium Hydroxide 30 ml 11/01/20 15:08 11/02/20 23:45 Milk Of Magnesia 30 Ml Oral.Susp PO 30 ml DAILY PRN Administration Constipation Mirtazapine 45 mg 10/30/20 21:00 11/06/20 20:02 Mirtazapine 15 Mg Tablet PO 45 mg BEDTIME JAMES Administration Nicotine Polacrilex 2 mg 11/02/20 11:32 Nicotine Polacrilex 2 Mg Gum BUCCAL Q2H PRN Nicotine Cravings Omeprazole 20 mg 10/30/20 09:00 11/07/20 08:48 Omeprazole 20 Mg Capsule.Dr PO 20 mg DAILY JAMES Administration Sucralfate 1 gm 10/30/20 07:30 11/07/20 16:25 Sucralfate 1 Gm Tablet PO 1 gm QIDACHS JAMES Administration Tamsulosin HCl 0.4 mg 10/30/20 09:00 11/07/20 08:48 Tamsulosin Hcl 0.4 Mg Capsule PO 0.4 mg DAILY JAMES Administration Trazodone HCl 50 mg 11/01/20 15:08 11/04/20 20:08 Trazodone Hcl 50 Mg Tablet PO 50 mg BEDTIME PRN Administration Insomnia Verapamil HCl 40 mg 10/30/20 09:00 11/07/20 14:08 Verapamil Hcl 40 Mg Tablet PO 40 mg TID JAMES Administration Protocol Zolpidem Tartrate 10 mg 11/07/20 17:05 Zolpidem Tartrate 5 Mg Tablet PO BEDTIME PRN Insomnia Allergies Allergies Allergy/AdvReac Type Severity Reaction Status Date / Time trazodone [TRAZODONE] Allergy Severe FACIAL Verified 04/07/20 09:20 SWELLING, swelling cat dander [CATS] Allergy Intermediate FACIAL Verified 04/07/20 09:20 ITCHING doxepin [DOXEPIN] Allergy Intermediate WEIGHT Verified 04/07/20 09:20 GAIN/LEG SWELLING Iodinated Contrast Media Allergy Intermediate ITCHING Verified 04/07/20 09:20 [IV DYE, IODINE CONTAINING CONTRAST ] nitroglycerin [NITROGLYCERIN] Allergy Unknown UNKNOWN Verified 04/07/20 09:20 tramadol [TRAMADOL] Allergy Unknown UNKNOWN, Verified 04/07/20 09:20 dry mouth ibuprofen [From MOTRIN] AdvReac Intermediate GI UPSET Verified 04/07/20 09:20 quetiapine [From SEROQUEL] AdvReac Intermediate FACIAL Verified 04/07/20 09:20 SWELLING aspirin [ASPIRIN] AdvReac Mild Stomach Verified 04/07/20 09:20 Upset Ibuprofen Allergy Unknown stomach Uncoded 04/07/20 09:20 ache IV contrast Allergy Unknown Unknown Uncoded 04/07/20 09:20 Motrin Allergy Unknown stomach Uncoded 04/07/20 09:20 pain Assessment & Plan Assessment & Plan (1) Schizoaffective disorder: Qualifiers: Schizoaffective disorder type: depressive Qualified Code(s): F25.1 - Schizoaffective disorder, depressive type Status: Acute Code(s): F25.9 - Schizoaffective disorder, unspecified Assessment and Plan: Recently switched from invega PO to abilify PO with discussion of switching to TIRADO. Has hx of multiple antipsychotic treatment, was prescribed haldol by OP psychiatrist, hx of non-adherence secondary to substance use. He does not want to address his substance use issues at this admission. He is not in acute withdrawal. He is complaining of poor sleep, depressed mood, and AH. He is adherent with medications and tolerating them well. 1. Increase abilify to 10 mg PO, monitor for benefit 2. discussed increasing ambien to 10 mg but against unit policy 3. Depakote ER 500 mg HS-trial for anxiety, mood regulation which may assist with rest in addition. (2) Suicidal ideation: Status: Acute Code(s): R45.851 - Suicidal ideations Assessment and Plan: Denies active self-harm monitor response to milieu and treatment (3) Opioid use disorder: Status: Acute Code(s): F11.99 - Opioid use, unspecified with unspecified opioid-induced disorder Assessment and Plan: Monitor for detox encourage CSS referral (4) Alcohol use disorder: Status: Acute Assessment and Plan: Monitor for detox consider CSS referral Assessment and Plan: Jerson was recently switched from invego PO to abilify PO with discussion of switching to TIRADO. He has had past trials on multiple antipsychotics, last on haldol PO by Dr. Love outpatient. He is currently complaining of poor sleep, depressed mood, and AH. 1. Continue abilify PO 5 mg and monitor for benefit 2. Discussed increasing ambien to 10 mg but was told this is against unit policy 3. Will re-start amitriptyline 50 mg QHS, as he was taking this outpatient for sleep 4. Monitor response to medications. 5. Monitor for safety in the milieu. Discharge on stabilization. Patient seen. Chart reviewed. Discussed with team. Greater than 50% of the session was spent on counseling and/or coordination of care Reason for contiued inpatient stay Substantial Risk for: harm to self, inability to function and rapid decompensation
[2020-11-07 18:00] VITALS: BP 117/70; PULSE 70; TEMP 36.6
[2020-11-07] MEDS: Amitriptyline HCl 50 MG TABLET PO (20:06)
[2020-11-07] MEDS: Divalproex Sodium ER 500 MG TAB.ER.24H PO (20:06)
[2020-11-07 20:07] VITALS: BP 117/70; PULSE 93
[2020-11-07] MEDS: Mirtazapine 15 MG TABLET 45 MG PO (20:07)
[2020-11-07] MEDS: cloNIDine HCL 0.1 MG TABLET 0.3 MG PO (20:07)
[2020-11-07] MEDS: Zolpidem Tartrate 5 MG TABLET PO (20:11)
[2020-11-08] MEDS: traZODone HCL 50 MG TABLET PO (01:02)
[2020-11-08] MEDS: chlorproMAZINE HCl 25 MG TABLET PO (01:02)
[2020-11-08 06:00] VITALS: BP 121/69; PULSE 78; RESP 18; TEMP 36.2; O2SAT 98
[2020-11-08 07:00] VITALS: BMI 26.0
[2020-11-08 09:04] VITALS: BP 123/68; PULSE 85
[2020-11-08] MEDS: ARIPiprazole 10 MG TABLET PO (09:04)
[2020-11-08] MEDS: atenoloL 25 MG TABLET PO (09:04)
[2020-11-08] MEDS: Tamsulosin HCL 0.4 MG CAPSULE PO (09:04)
[2020-11-08] MEDS: Cyclobenzaprine HCl 10 MG TABLET PO ×2 (09:04→20:08)
[2020-11-08] MEDS: Omeprazole 20 MG CAPSULE.DR PO (09:04)
[2020-11-08] MEDS: Sucralfate 1 GM TABLET PO ×3 (09:05→20:08)
[2020-11-08] MEDS: clonazePAM 1 MG TABLET PO ×2 (09:05→20:08)
[2020-11-08] MEDS: VerapamiL HCL 40 MG TABLET PO ×3 (09:05→20:09)
--- NOTE | 2020-11-08 13:36 | HO.PSYCHPN ---
Subjective Subjective Date of Service: 11/08/20 Reason For Visit: Schizoaffective Disorder-depressed Subjective Notes: Conditional Voluntary Healthcare Proxy: No Guardianship: No Medical Problems Affecting Mental Status: No Interim History: Pt reports he slept for two hours. Auditory perceptual alterations have decreased. Tells team voices are command in nature and tell him to harm others. Reports ongoing depression and anxiety, back pain. Requests benzodiazepines, hypnotics. Reports some diaphoresis as well while asleep. Team has applied for [facility] ([facility]) and to [facility] for residential care. Completed medicine and sx review with pt. Medication Compliance: Yes Side effects from medications: No Attending Groups: No Review of Systems Acute medical concerns: No Medical Review of Systems: unchanged Review of Systems Reports behavioral changes Psychiatric: Reports abnormal sleep pattern, Reports anxiety, Reports behavioral changes, Reports depression, Reports auditory hallucinations, Reports hopelessness and Reports irritability Mental Status Exam Mental Status Exam Patient Appearance: Appropriate Patient Orientation: Person, Place, Time and Situation Level of Consciousness: Alert Patient Behavior: Appropriate, Talkative, Cooperative and Good Eye Contact Mood Description: Suspicious, Depressed, Anxious and Apprehensive Affect Description: Constricted Patient Cognition Impaired: No Speech Pattern: Spontaneous Speech and Pressured Memory Description: Remote Impaired and Episodic Impaired Hallucinations: Auditory and Visual Delusions: Paranoid Ideation, Grandiose and Present Thought Process: Racing, Illogical and Distracted Thought Content: positive for Circumstantial, positive for Perseveration, positive for Preoccupation and positive for Tangential Depressive Symptoms: Increased Anxiety, Diff. Making Decisions, Increased Irritability, Difficulty Sleeping, Loss of Int. in Activity, Feelings of Worthlessness, Hopelessness, Feelings of Guilt, Unhappiness, Increased Fatigue, Low Self Esteem and Difficulty Concentrating Judgement: Fair Diagnostics Vital Signs (24Hr): Vital Signs - 24 hr 11/07/20 14:08 11/07/20 18:00 11/07/20 20:07 Temperature 97.8 F Pulse Rate 83 70 93 Respiratory Rate Blood Pressure 114/60 117/70 117/70 Pulse Oximetry 11/08/20 06:00 11/08/20 09:04 Temperature 97.2 F Pulse Rate 78 85 Respiratory Rate 18 Blood Pressure 121/69 123/68 Pulse Oximetry 98 Body Mass Index 26.0 Labs Results: 10/30/20 00:24 10/30/20 00:24 Medications Medications Current Medications Generic Name Dose Route Start Last Admin Trade Name Freq PRN Reason Stop Dose Admin Acetaminophen 650 mg 11/01/20 15:08 11/07/20 20:06 Acetaminophen 325 Mg Tablet PO 650 mg Q6H PRN Administration Headache/Pain Mild Scale (1-3) Al Hydroxide/Mg Hydroxide 30 ml 11/01/20 15:08 11/04/20 22:16 Magnesium Hydrox/Alum Hydrox 30 Ml Oral.Susp PO 30 ml Q6H PRN Administration Heartburn/Nausea Amitriptyline HCl 50 mg 11/06/20 21:00 11/07/20 20:06 Amitriptyline Hcl 50 Mg Tablet PO 50 mg BEDTIME JAMES Administration Aripiprazole 10 mg 11/08/20 09:00 11/08/20 09:04 Aripiprazole 10 Mg Tablet PO 10 mg DAILY JAMES Administration Atenolol 25 mg 10/30/20 09:00 11/08/20 09:04 Atenolol 25 Mg Tablet PO 25 mg DAILY JAMES Administration Protocol Chlorpromazine HCl 25 mg 11/02/20 16:33 11/08/20 01:02 Chlorpromazine Hcl 25 Mg Tablet PO 25 mg QID PRN Administration psychosis Clonazepam 1 mg 11/04/20 21:15 11/08/20 09:05 Clonazepam 1 Mg Tablet PO 1 mg BID JAMES Administration Clonidine HCl 0.3 mg 10/30/20 21:00 11/07/20 20:07 Clonidine Hcl 0.1 Mg Tablet PO 0.3 mg BEDTIME JAMES Administration Protocol Cyclobenzaprine HCl 10 mg 10/30/20 09:00 11/08/20 09:04 Cyclobenzaprine Hcl 10 Mg Tablet PO 10 mg BID JAMES Administration Divalproex Sodium 500 mg 11/07/20 21:00 11/07/20 20:06 Divalproex Sodium Er 500 Mg Tab.Er.24h PO 500 mg BEDTIME JAMES Administration Fluticasone Propionate 2 spray 10/30/20 09:00 11/08/20 11:18 Fluticasone Propionate Nasal 16 Gm [place] NOSTRIL-B Not Given DAILY JAMES Hydroxyzine HCl 25 mg 11/01/20 15:08 11/07/20 16:25 Hydroxyzine Hcl 25 Mg Tablet PO 25 mg Q6H PRN Administration Anxiety Loperamide HCl 2 mg 11/01/20 17:25 11/01/20 22:14 Loperamide Hcl 2 Mg Capsule PO 2 mg Q4H PRN Administration Diarrhea Magnesium Hydroxide 30 ml 11/01/20 15:08 11/02/20 23:45 Milk Of Magnesia 30 Ml Oral.Susp PO 30 ml DAILY PRN Administration Constipation Mirtazapine 45 mg 10/30/20 21:00 11/07/20 20:07 Mirtazapine 15 Mg Tablet PO 45 mg BEDTIME JAMES Administration Nicotine Polacrilex 2 mg 11/02/20 11:32 Nicotine Polacrilex 2 Mg Gum BUCCAL Q2H PRN Nicotine Cravings Omeprazole 20 mg 10/30/20 09:00 11/08/20 09:04 Omeprazole 20 Mg Capsule.Dr PO 20 mg DAILY JAMES Administration Sucralfate 1 gm 10/30/20 07:30 11/08/20 12:16 Sucralfate 1 Gm Tablet PO 1 gm QIDACHS JAMES Administration Tamsulosin HCl 0.4 mg 10/30/20 09:00 11/08/20 09:04 Tamsulosin Hcl 0.4 Mg Capsule PO 0.4 mg DAILY JAMES Administration Trazodone HCl 50 mg 11/01/20 15:08 11/08/20 01:02 Trazodone Hcl 50 Mg Tablet PO 50 mg BEDTIME PRN Administration Insomnia Verapamil HCl 40 mg 10/30/20 09:00 11/08/20 09:05 Verapamil Hcl 40 Mg Tablet PO 40 mg TID JAMES Administration Protocol Zolpidem Tartrate 5 mg 11/07/20 17:13 11/07/20 20:11 Zolpidem Tartrate 5 Mg Tablet PO 5 mg BEDTIME PRN Administration Insomnia Allergies Allergies Allergy/AdvReac Type Severity Reaction Status Date / Time trazodone [TRAZODONE] Allergy Severe FACIAL Verified 04/07/20 09:20 SWELLING, swelling cat dander [CATS] Allergy Intermediate FACIAL Verified 04/07/20 09:20 ITCHING doxepin [DOXEPIN] Allergy Intermediate WEIGHT Verified 04/07/20 09:20 GAIN/LEG SWELLING Iodinated Contrast Media Allergy Intermediate ITCHING Verified 04/07/20 09:20 [IV DYE, IODINE CONTAINING CONTRAST ] nitroglycerin [NITROGLYCERIN] Allergy Unknown UNKNOWN Verified 04/07/20 09:20 tramadol [TRAMADOL] Allergy Unknown UNKNOWN, Verified 04/07/20 09:20 dry mouth ibuprofen [From MOTRIN] AdvReac Intermediate GI UPSET Verified 04/07/20 09:20 quetiapine [From SEROQUEL] AdvReac Intermediate FACIAL Verified 04/07/20 09:20 SWELLING aspirin [ASPIRIN] AdvReac Mild Stomach Verified 04/07/20 09:20 Upset Ibuprofen Allergy Unknown stomach Uncoded 04/07/20 09:20 ache IV contrast Allergy Unknown Unknown Uncoded 04/07/20 09:20 Motrin Allergy Unknown stomach Uncoded 04/07/20 09:20 pain Assessment & Plan Assessment & Plan (1) Schizoaffective disorder: Qualifiers: Schizoaffective disorder type: depressive Qualified Code(s): F25.1 - Schizoaffective disorder, depressive type Status: Acute Code(s): F25.9 - Schizoaffective disorder, unspecified Assessment and Plan: Recently switched from invega PO to abilify PO with discussion of switching to TIRADO. Has hx of multiple antipsychotic treatment, was prescribed haldol by OP psychiatrist, hx of non-adherence secondary to substance use. He does not want to address his substance use issues at this admission. He is not in acute withdrawal. He is complaining of poor sleep, depressed mood, and AH. He is adherent with medications and tolerating them well. 1. Increase abilify to 10 mg PO, monitor for benefit 2. discussed increasing ambien to 10 mg but against unit policy 3. Depakote ER increase to 750 mg HS-trial for anxiety, mood regulation which may assist with rest in addition. (2) Suicidal ideation: Status: Acute Code(s): R45.851 - Suicidal ideations Assessment and Plan: Denies active self-harm monitor response to milieu and treatment (3) Opioid use disorder: Status: Acute Code(s): F11.99 - Opioid use, unspecified with unspecified opioid-induced disorder Assessment and Plan: Monitor for detox encourage CSS referral (4) Alcohol use disorder: Status: Acute Assessment and Plan: Monitor for detox consider CSS referral Greater than 50% of the session was spent on counseling and/or coordination of care Patient educated on: medication risk/benefits and therapeutic strategies Informed Consent: understands and further education needed Reason for contiued inpatient stay Substantial Risk for: harm to self, inability to function and rapid decompensation
[2020-11-08 14:37] VITALS: BP 119/69; PULSE 78
[2020-11-08 16:27] VITALS: BP 109/61; PULSE 83; TEMP 36.7
[2020-11-08] MEDS: Lidocaine 4 % Patch ADH..PATCH 1 PATCH TRANSDERMA (17:43)
[2020-11-08 19:45] VITALS: BP 125/62; PULSE 75; TEMP 36.6
[2020-11-08] MEDS: Zolpidem Tartrate 5 MG TABLET PO (20:08)
[2020-11-08] MEDS: Amitriptyline HCl 50 MG TABLET PO (20:08)
[2020-11-08] MEDS: Divalproex Sodium ER 250 MG TAB.ER.24H 750 MG PO (20:08)
[2020-11-08] MEDS: Mirtazapine 15 MG TABLET 45 MG PO (20:08)
[2020-11-08 20:09] VITALS: BP 125/62; PULSE 75
[2020-11-08] MEDS: cloNIDine HCL 0.1 MG TABLET 0.3 MG PO (20:09)
[2020-11-09] VITALS (7 sets, daily range): BP systolic 99–119; BP diastolic 60–65; PULSE 74–93; RESP 16; TEMP 36.6–37.1; O2SAT 96
[2020-11-09] MEDS: Acetaminophen 325 MG TABLET 650 MG PO ×2 (04:19→19:26)
[2020-11-09] MEDS: ARIPiprazole 10 MG TABLET PO (08:45)
[2020-11-09] MEDS: Tamsulosin HCL 0.4 MG CAPSULE PO (08:45)
[2020-11-09] MEDS: VerapamiL HCL 40 MG TABLET PO ×3 (08:46→19:58)
[2020-11-09] MEDS: atenoloL 25 MG TABLET PO (08:46)
[2020-11-09] MEDS: Omeprazole 20 MG CAPSULE.DR PO (08:46)
[2020-11-09] MEDS: clonazePAM 1 MG TABLET PO ×2 (08:46→19:56)
[2020-11-09] MEDS: Cyclobenzaprine HCl 10 MG TABLET PO ×2 (08:46→19:56)
[2020-11-09] MEDS: Sucralfate 1 GM TABLET PO ×4 (08:47→19:57)
[2020-11-09] MEDS: Fluticasone Propionate Nasal 16 GM SPRAY 2 SPRAY NOSTRIL-B (08:47)
--- NOTE | 2020-11-09 14:58 | HO.PSYCHPN ---
Subjective Subjective Date of Service: 11/09/20 Reason For Visit: Schizoaffective Disorder-depressed Subjective Notes: Conditional Voluntary Healthcare Proxy: No Guardianship: No Medical Problems Affecting Mental Status: No Interim History: Continues to report poor sleep~2 hours. Discussed Klonopin tapering as he would like a trial of Gabapentin. He prefers Klonopin to this trial however. Reports Depakote not assisting in sx mgt-will taper. Has not used Melatonin in the past. Has used Seroquel with efficacy but listed in allergy. States when he attempts sleep- I am scared about something and what will happen. Medication Compliance: Yes Side effects from medications: Yes Attending Groups: Intermittent Review of Systems Acute medical concerns: No Medical Review of Systems: unchanged Review of Systems Psychiatric: Reports abnormal sleep pattern, Reports anxiety, Reports auditory hallucinations, Reports hopelessness, Reports anhedonia, Reports panic attacks, Reports paranoia, Reports visual hallucinations, Reports hallucinations and Reports suicidal ideation (denies) Mental Status Exam Mental Status Exam Patient Appearance: Appropriate Patient Orientation: Person, Place, Time and Situation Level of Consciousness: Alert Patient Behavior: Appropriate, Dependent, Guarded, Talkative, Cooperative, Anxious, Fearful, Distractible and Good Eye Contact Mood Description: Anxious Affect Description: Constricted and Anxious Patient Cognition Impaired: No Ability to Follow Directions: Good Speech Pattern: Perseverating, Spontaneous Speech and Soft-Spoken Memory Description: Episodic Impaired Hallucinations: Auditory Delusions: Paranoid Ideation and Present Thought Process: Distracted Thought Content: positive for [place], positive for Circumstantial, positive for Perseveration and positive for Suicidal Ideation (denies) Depressive Symptoms: Increased Anxiety, Insomnia, Difficulty Sleeping and Unhappiness Judgement: Fair Diagnostics Vital Signs (24Hr): Vital Signs - 24 hr 11/08/20 16:27 11/08/20 19:45 11/08/20 20:09 Temperature 98.0 F 98 F Pulse Rate 83 75 75 Respiratory Rate Blood Pressure 109/61 125/62 125/62 Pulse Oximetry 11/09/20 06:00 11/09/20 08:46 11/09/20 14:37 Temperature 97.9 F Pulse Rate 81 81 74 Respiratory Rate 16 Blood Pressure 113/62 113/62 119/65 Pulse Oximetry 96 Body Mass Index 26.0 Labs Results: 10/30/20 00:24 10/30/20 00:24 Medications Medications Current Medications Generic Name Dose Route Start Last Admin Trade Name Nakulq PRN Reason Stop Dose Admin Acetaminophen 650 mg 11/01/20 15:08 11/09/20 04:19 Acetaminophen 325 Mg Tablet PO 650 mg Q6H PRN Administration Headache/Pain Mild Scale (1-3) Al Hydroxide/Mg Hydroxide 30 ml 11/01/20 15:08 11/04/20 22:16 Magnesium Hydrox/Alum Hydrox 30 Ml Oral.Susp PO 30 ml Q6H PRN Administration Heartburn/Nausea Amitriptyline HCl 50 mg 11/06/20 21:00 11/08/20 20:08 Amitriptyline Hcl 50 Mg Tablet PO 50 mg BEDTIME JAMES Administration Aripiprazole 10 mg 11/08/20 09:00 11/09/20 08:45 Aripiprazole 10 Mg Tablet PO 10 mg DAILY JAMES Administration Atenolol 25 mg 10/30/20 09:00 11/09/20 08:46 Atenolol 25 Mg Tablet PO 25 mg DAILY JAMES Administration Protocol Chlorpromazine HCl 25 mg 11/02/20 16:33 11/08/20 01:02 Chlorpromazine Hcl 25 Mg Tablet PO 25 mg QID PRN Administration psychosis Clonazepam 1 mg 11/04/20 21:15 11/09/20 08:46 Clonazepam 1 Mg Tablet PO 1 mg BID JAMES Administration Clonidine HCl 0.3 mg 10/30/20 21:00 11/08/20 20:09 Clonidine Hcl 0.1 Mg Tablet PO 0.3 mg BEDTIME JAMES Administration Protocol Cyclobenzaprine HCl 10 mg 10/30/20 09:00 11/09/20 08:46 Cyclobenzaprine Hcl 10 Mg Tablet PO 10 mg BID JAMES Administration Divalproex Sodium 750 mg 11/08/20 21:00 11/08/20 20:08 Divalproex Sodium Er 250 Mg Tab.Er.24h PO 750 mg BEDTIME JAMES Administration Fluticasone Propionate 2 spray 10/30/20 09:00 11/09/20 08:47 Fluticasone Propionate Nasal 16 Gm [place] NOSTRIL-B 2 spray DAILY JAMES Administration Hydroxyzine HCl 25 mg 11/01/20 15:08 11/07/20 16:25 Hydroxyzine Hcl 25 Mg Tablet PO 25 mg Q6H PRN Administration Anxiety Lidocaine 1 patch 11/08/20 17:15 11/09/20 08:49 Lidocaine 4 % Patch Adh..Patch TRANSDERMA Not Given DAILY [facility] Protocol Loperamide HCl 2 mg 11/01/20 17:25 11/01/20 22:14 Loperamide Hcl 2 Mg Capsule PO 2 mg Q4H PRN Administration Diarrhea Magnesium Hydroxide 30 ml 11/01/20 15:08 11/02/20 23:45 Milk Of Magnesia 30 Ml Oral.Susp PO 30 ml DAILY PRN Administration Constipation Mirtazapine 45 mg 10/30/20 21:00 11/08/20 20:08 Mirtazapine 15 Mg Tablet PO 45 mg BEDTIME JAMES Administration Nicotine Polacrilex 2 mg 11/02/20 11:32 Nicotine Polacrilex 2 Mg Gum BUCCAL Q2H PRN Nicotine Cravings Omeprazole 20 mg 10/30/20 09:00 11/09/20 08:46 Omeprazole 20 Mg Capsule.Dr PO 20 mg DAILY JAMES Administration Sucralfate 1 gm 10/30/20 07:30 11/09/20 11:29 Sucralfate 1 Gm Tablet PO 1 gm QIDACHS JAMES Administration Tamsulosin HCl 0.4 mg 10/30/20 09:00 11/09/20 08:45 Tamsulosin Hcl 0.4 Mg Capsule PO 0.4 mg DAILY JAMES Administration Trazodone HCl 50 mg 11/01/20 15:08 11/08/20 01:02 Trazodone Hcl 50 Mg Tablet PO 50 mg BEDTIME PRN Administration Insomnia Verapamil HCl 40 mg 10/30/20 09:00 11/09/20 14:37 Verapamil Hcl 40 Mg Tablet PO 40 mg TID JAMES Administration Protocol Zolpidem Tartrate 5 mg 11/07/20 17:13 11/08/20 20:08 Zolpidem Tartrate 5 Mg Tablet PO 5 mg BEDTIME PRN Administration Insomnia Allergies Allergies Allergy/AdvReac Type Severity Reaction Status Date / Time trazodone [TRAZODONE] Allergy Severe FACIAL Verified 04/07/20 09:20 SWELLING, swelling cat dander [CATS] Allergy Intermediate FACIAL Verified 04/07/20 09:20 ITCHING doxepin [DOXEPIN] Allergy Intermediate WEIGHT Verified 04/07/20 09:20 GAIN/LEG SWELLING Iodinated Contrast Media Allergy Intermediate ITCHING Verified 04/07/20 09:20 [IV DYE, IODINE CONTAINING CONTRAST ] nitroglycerin [NITROGLYCERIN] Allergy Unknown UNKNOWN Verified 04/07/20 09:20 tramadol [TRAMADOL] Allergy Unknown UNKNOWN, Verified 04/07/20 09:20 dry mouth ibuprofen [From MOTRIN] AdvReac Intermediate GI UPSET Verified 04/07/20 09:20 quetiapine [From SEROQUEL] AdvReac Intermediate FACIAL Verified 04/07/20 09:20 SWELLING aspirin [ASPIRIN] AdvReac Mild Stomach Verified 04/07/20 09:20 Upset Ibuprofen Allergy Unknown stomach Uncoded 04/07/20 09:20 ache IV contrast Allergy Unknown Unknown Uncoded 04/07/20 09:20 Motrin Allergy Unknown stomach Uncoded 04/07/20 09:20 pain Assessment & Plan Assessment & Plan (1) Schizoaffective disorder: Qualifiers: Schizoaffective disorder type: depressive Qualified Code(s): F25.1 - Schizoaffective disorder, depressive type Status: Acute Code(s): F25.9 - Schizoaffective disorder, unspecified Assessment and Plan: Recently switched from invega PO to abilify PO with discussion of switching to TIRADO. Has hx of multiple antipsychotic treatment, was prescribed haldol by OP psychiatrist, hx of non-adherence secondary to substance use. He does not want to address his substance use issues at this admission. He is not in acute withdrawal. He is complaining of poor sleep, depressed mood, and AH. He is adherent with medications and tolerating them well. 1. Continue abilify 10 mg 2. discussed increasing ambien to 10 mg but against unit policy 3. Depakote taper 250 mg for 3 nights then stop- pt reports not helpful in calming thoughts at bedtime 4. Melatonin 3 mg HS 5. Asks to trial Seroquel again, however, hx of facial edema 6. Thorazine 50 mg HS (2) Suicidal ideation: Status: Acute Code(s): R45.851 - Suicidal ideations Assessment and Plan: Denies active self-harm monitor response to milieu and treatment (3) Opioid use disorder: Status: Acute Code(s): F11.99 - Opioid use, unspecified with unspecified opioid-induced disorder Assessment and Plan: Monitor for detox encourage CSS referral (4) Alcohol use disorder: Status: Acute Assessment and Plan: Monitor for detox consider CSS referral Greater than 50% of the session was spent on counseling and/or coordination of care Patient educated on: medication risk/benefits and therapeutic strategies Informed Consent: further education needed Reason for contiued inpatient stay Substantial Risk for: harm to self, inability to function and rapid decompensation
[2020-11-09] MEDS: Amitriptyline HCl 50 MG TABLET PO (19:55)
[2020-11-09] MEDS: chlorproMAZINE HCl 25 MG TABLET 50 MG PO (19:55)
[2020-11-09] MEDS: Melatonin 3 MG TABLET PO (19:56)
[2020-11-09] MEDS: Mirtazapine 15 MG TABLET 45 MG PO (19:57)
[2020-11-09] MEDS: cloNIDine HCL 0.1 MG TABLET 0.3 MG PO (19:57)
[2020-11-09] MEDS: Divalproex Sodium ER 250 MG TAB.ER.24H PO (19:57)
[2020-11-09] MEDS: Zolpidem Tartrate 5 MG TABLET PO (19:57)
[2020-11-10] MEDS: Acetaminophen 325 MG TABLET 650 MG PO ×2 (05:17→16:34)
[2020-11-10 06:00] VITALS: BP 120/68; PULSE 77; RESP 18; TEMP 35.7; O2SAT 98
[2020-11-10] MEDS: Sucralfate 1 GM TABLET PO ×4 (07:57→19:56)
[2020-11-10] MEDS: clonazePAM 1 MG TABLET PO ×2 (07:57→19:54)
[2020-11-10] MEDS: Tamsulosin HCL 0.4 MG CAPSULE PO (07:57)
[2020-11-10] MEDS: Cyclobenzaprine HCl 10 MG TABLET PO ×2 (07:57→19:54)
[2020-11-10] MEDS: ARIPiprazole 10 MG TABLET PO (07:57)
[2020-11-10 07:58] VITALS: BP 115/64; PULSE 74
[2020-11-10] MEDS: Omeprazole 20 MG CAPSULE.DR PO (07:58)
[2020-11-10] MEDS: VerapamiL HCL 40 MG TABLET PO ×2 (07:58→19:55)
[2020-11-10] MEDS: atenoloL 25 MG TABLET PO (07:58)
[2020-11-10 14:16] VITALS: BP 116/54; PULSE 75
[2020-11-10] MEDS: hydrOXYzine HCL 25 MG TABLET PO (16:14)
[2020-11-10] MEDS: chlorproMAZINE HCl 25 MG TABLET PO (16:34)
--- NOTE | 2020-11-10 17:59 | P.PNPSI_ITS ---
Subjective Subjective Date of Service: 11/11/20 Reason For Visit: Schizoaffective Disorder-depressed Interim History: Patient seen and discussed with team. Patient evaluated this morning and upon interview he reports he is still having problems with sleep. His Depakote is being titrated and discontinued due to lack of efficacy, was started on thorazine. He asks if he can be put back on seroquel for sleep but discussed polypharm with salvador. He is amenable to trailing an increased dose of thorazine at bedtime. Appetite is good. He is not attending groups, attributes this to language barrier. In the milieu, patient is safe and appropriate in behavior, somewhat isolative. Denies SI/SIB/HI upon inquiry. Denies irritability or assaultive ideation. Says he feels safe. Review of Systems Medical Review of Systems: unchanged Mental Status Exam Mental Status Exam Narrative: Patient Appearance:?Appropriate Patient Orientation:?Person, Place, Time and Situation Level of Consciousness:?Alert Patient Behavior:?Appropriate, Dependent, Guarded, Talkative, Cooperative, Anxious, Fearful, Distractible and Good Eye Contact Mood Description:?Tired, anxious Affect Description:?Constricted and Anxious Patient Cognition Impaired:?No Ability to Follow Directions:?Good Speech Pattern:?Perseverating, Spontaneous Speech and Soft-Spoken Memory Description:?Episodic Impaired Hallucinations:?Auditory Delusions:?Paranoid Ideation and Present Thought Process:?Distracted Thought Content:?positive for [place], positive for Circumstantial, positive for Perseveration and positive for Suicidal Ideation (denies) Depressive Symptoms:?Increased Anxiety, Insomnia, Difficulty Sleeping and Unhappiness Judgement:?Fair Diagnostics Vital Signs (24Hr): Vital Signs - 24 hr 11/09/20 19:40 11/09/20 19:57 11/09/20 19:58 Temperature 98.7 F Pulse Rate 93 93 93 Respiratory Rate Blood Pressure 116/60 116/60 116/60 Pulse Oximetry 11/10/20 06:00 11/10/20 07:58 11/10/20 14:16 Temperature 96.3 F L Pulse Rate 77 74 75 Respiratory Rate 18 Blood Pressure 120/68 115/64 116/54 L Pulse Oximetry 98 Body Mass Index 26.0 Labs Results: 10/30/20 00:24 10/30/20 00:24 Medications Medications Current Medications Generic Name Dose Route Start Last Admin Trade Name Freq PRN Reason Stop Dose Admin Acetaminophen 650 mg 11/01/20 15:08 11/10/20 16:34 Acetaminophen 325 Mg Tablet PO 650 mg Q6H PRN Administration Headache/Pain Mild Scale (1-3) Al Hydroxide/Mg Hydroxide 30 ml 11/01/20 15:08 11/04/20 22:16 Magnesium Hydrox/Alum Hydrox 30 Ml Oral.Susp PO 30 ml Q6H PRN Administration Heartburn/Nausea Amitriptyline HCl 50 mg 11/06/20 21:00 11/09/20 19:55 Amitriptyline Hcl 50 Mg Tablet PO 50 mg BEDTIME JAMES Administration Aripiprazole 10 mg 11/08/20 09:00 11/10/20 07:57 Aripiprazole 10 Mg Tablet PO 10 mg DAILY JAMES Administration Atenolol 25 mg 10/30/20 09:00 11/10/20 07:58 Atenolol 25 Mg Tablet PO 25 mg DAILY JAMES Administration Protocol Chlorpromazine HCl 25 mg 11/02/20 16:33 11/10/20 16:34 Chlorpromazine Hcl 25 Mg Tablet PO 25 mg QID PRN Administration psychosis Chlorpromazine HCl 50 mg 11/09/20 21:00 11/09/20 19:55 Chlorpromazine Hcl 25 Mg Tablet PO 50 mg BEDTIME JAMES Administration Clonazepam 1 mg 11/04/20 21:15 11/10/20 07:57 Clonazepam 1 Mg Tablet PO 1 mg BID JAMES Administration Clonidine HCl 0.3 mg 10/30/20 21:00 11/09/20 19:57 Clonidine Hcl 0.1 Mg Tablet PO 0.3 mg BEDTIME JAMES Administration Protocol Cyclobenzaprine HCl 10 mg 10/30/20 09:00 11/10/20 07:57 Cyclobenzaprine Hcl 10 Mg Tablet PO 10 mg BID JAMES Administration Divalproex Sodium 250 mg 11/09/20 21:00 11/09/20 19:57 Divalproex Sodium Er 250 Mg Tab.Er.24h PO 11/12/20 08:00 250 mg BEDTIME JAMES Administration Fluticasone Propionate 2 spray 10/30/20 09:00 11/10/20 08:01 Fluticasone Propionate Nasal 16 Gm [place] NOSTRIL-B Not Given DAILY JAMES Hydroxyzine HCl 25 mg 11/01/20 15:08 11/10/20 16:14 Hydroxyzine Hcl 25 Mg Tablet PO 25 mg Q6H PRN Administration Anxiety Lidocaine 1 patch 11/08/20 17:15 11/10/20 07:58 Lidocaine 4 % Patch Adh..Patch TRANSDERMA Not Given DAILY [facility] Protocol Loperamide HCl 2 mg 11/01/20 17:25 11/01/20 22:14 Loperamide Hcl 2 Mg Capsule PO 2 mg Q4H PRN Administration Diarrhea Magnesium Hydroxide 30 ml 11/01/20 15:08 11/02/20 23:45 Milk Of Magnesia 30 Ml Oral.Susp PO 30 ml DAILY PRN Administration Constipation Melatonin 3 mg 11/09/20 21:00 11/09/20 19:56 Melatonin 3 Mg Tablet PO 3 mg BEDTIME JAMES Administration Mirtazapine 45 mg 10/30/20 21:00 11/09/20 19:57 Mirtazapine 15 Mg Tablet PO 45 mg BEDTIME JAMES Administration Nicotine Polacrilex 2 mg 11/02/20 11:32 Nicotine Polacrilex 2 Mg Gum BUCCAL Q2H PRN Nicotine Cravings Omeprazole 20 mg 10/30/20 09:00 11/10/20 07:58 Omeprazole 20 Mg Capsule.Dr PO 20 mg DAILY JAMES Administration Sucralfate 1 gm 10/30/20 07:30 11/10/20 16:14 Sucralfate 1 Gm Tablet PO 1 gm QIDACHS JAMES Administration Tamsulosin HCl 0.4 mg 10/30/20 09:00 11/10/20 07:57 Tamsulosin Hcl 0.4 Mg Capsule PO 0.4 mg DAILY JAMES Administration Trazodone HCl 50 mg 11/01/20 15:08 11/08/20 01:02 Trazodone Hcl 50 Mg Tablet PO 50 mg BEDTIME PRN Administration Insomnia Verapamil HCl 40 mg 10/30/20 09:00 11/10/20 14:16 Verapamil Hcl 40 Mg Tablet PO Not Given TID [facility] Protocol Zolpidem Tartrate 5 mg 11/07/20 17:13 11/09/20 19:57 Zolpidem Tartrate 5 Mg Tablet PO 5 mg BEDTIME PRN Administration Insomnia Allergies Allergies Allergy/AdvReac Type Severity Reaction Status Date / Time trazodone [TRAZODONE] Allergy Severe FACIAL Verified 04/07/20 09:20 SWELLING, swelling cat dander [CATS] Allergy Intermediate FACIAL Verified 04/07/20 09:20 ITCHING doxepin [DOXEPIN] Allergy Intermediate WEIGHT Verified 04/07/20 09:20 GAIN/LEG SWELLING Iodinated Contrast Media Allergy Intermediate ITCHING Verified 04/07/20 09:20 [IV DYE, IODINE CONTAINING CONTRAST ] nitroglycerin [NITROGLYCERIN] Allergy Unknown UNKNOWN Verified 04/07/20 09:20 tramadol [TRAMADOL] Allergy Unknown UNKNOWN, Verified 04/07/20 09:20 dry mouth ibuprofen [From MOTRIN] AdvReac Intermediate GI UPSET Verified 04/07/20 09:20 quetiapine [From SEROQUEL] AdvReac Intermediate FACIAL Verified 04/07/20 09:20 SWELLING aspirin [ASPIRIN] AdvReac Mild Stomach Verified 04/07/20 09:20 Upset Ibuprofen Allergy Unknown stomach Uncoded 04/07/20 09:20 ache IV contrast Allergy Unknown Unknown Uncoded 04/07/20 09:20 Motrin Allergy Unknown stomach Uncoded 04/07/20 09:20 pain Assessment & Plan Assessment & Plan (1) Schizoaffective disorder: Qualifiers: Schizoaffective disorder type: depressive Qualified Code(s): F25.1 - Schizoaffective disorder, depressive type Status: Acute Code(s): F25.9 - Schizoaffective disorder, unspecified Assessment and Plan: Recently switched from invega PO to abilify PO with discussion of switching to TIRADO. Has hx of multiple antipsychotic treatment, was prescribed haldol by OP psychiatrist, hx of non-adherence secondary to substance use. He does not want to address his substance use issues at this admission. He is not in acute withdrawal. He is complaining of poor sleep, depressed mood, and AH. He is adherent with medications and tolerating them well. 1. Continue abilify 10 mg 2. discussed increasing ambien to 10 mg but against unit policy 3. Continue Depakote taper 250 mg for 3 nights then stop- pt reports not helpful in calming thoughts at bedtime 4. Melatonin 3 mg HS 5. Asks to trial Seroquel again, however, hx of facial edema 6. Increase Thorazine to 100 mg HS to target poor sleep (2) Suicidal ideation: Status: Acute Code(s): R45.851 - Suicidal ideations Assessment and Plan: Denies active self-harm monitor response to milieu and treatment (3) Opioid use disorder: Status: Acute Code(s): F11.99 - Opioid use, unspecified with unspecified opioid-induced disorder Assessment and Plan: Monitor for detox encourage CSS referral (4) Alcohol use disorder: Status: Acute Assessment and Plan: Monitor for detox consider CSS referral Greater than 50% of the session was spent on counseling and/or coordination of care Patient educated on: medication risk/benefits Reason for contiued inpatient stay Substantial Risk for: harm to self and med/psych decompensation
[2020-11-10 19:52] VITALS: BP 119/62; PULSE 82
[2020-11-10] MEDS: cloNIDine HCL 0.1 MG TABLET 0.3 MG PO (19:52)
[2020-11-10] MEDS: Zolpidem Tartrate 5 MG TABLET PO (19:53)
[2020-11-10] MEDS: Mirtazapine 15 MG TABLET 45 MG PO (19:53)
[2020-11-10] MEDS: Melatonin 3 MG TABLET PO (19:53)
[2020-11-10] MEDS: chlorproMAZINE HCl 100 MG TABLET PO (19:54)
[2020-11-10] MEDS: Divalproex Sodium ER 250 MG TAB.ER.24H PO (19:54)
[2020-11-10 19:55] VITALS: BP 119/62; PULSE 82
[2020-11-10] MEDS: Amitriptyline HCl 50 MG TABLET PO (20:00)
[2020-11-10 20:37] VITALS: BP 119/62; PULSE 82; TEMP 36.8
[2020-11-11 06:00] VITALS: BP 132/73; PULSE 71; RESP 18; TEMP 35.7; O2SAT 98
[2020-11-11] MEDS: clonazePAM 1 MG TABLET PO ×2 (08:07→20:19)
[2020-11-11 08:08] VITALS: BP 132/73; PULSE 71
[2020-11-11] MEDS: Cyclobenzaprine HCl 10 MG TABLET PO ×2 (08:08→20:19)
[2020-11-11] MEDS: Omeprazole 20 MG CAPSULE.DR PO (08:08)
[2020-11-11] MEDS: Sucralfate 1 GM TABLET PO ×4 (08:08→20:19)
[2020-11-11] MEDS: Tamsulosin HCL 0.4 MG CAPSULE PO (08:08)
[2020-11-11] MEDS: ARIPiprazole 10 MG TABLET PO (08:08)
[2020-11-11] MEDS: atenoloL 25 MG TABLET PO (08:08)
[2020-11-11] MEDS: VerapamiL HCL 40 MG TABLET PO ×3 (08:08→20:19)
[2020-11-11] MEDS: Acetaminophen 325 MG TABLET 650 MG PO (10:26)
--- NOTE | 2020-11-11 14:20 | HO.PSYCHPN ---
Subjective Subjective Date of Service: 11/12/20 Reason For Visit: Schizoaffective Disorder-depressed Subjective Notes: Conditional Voluntary Interim History: Patient seen and discussed with team. Patient evaluated this morning and upon interview he reports the increase in thorazine helped with sleep, it worked better. Says he is still feeling anxious all the time and has had panic attacks. Also complains of vague physical pain all the time. Appetite is good. Mood is okay. He is attending group intermittently, low energy and takes naps in the day. In the milieu, patient is safe and appropriate in behavior, somewhat isolative. Denies SI/SIB/HI upon inquiry. Denies irritability or assaultive ideation. Says he feels safe. Mental Status Exam Mental Status Exam Narrative: Narrative:?Patient Appearance:?Appropriate Patient Orientation:?Person, Place, Time and Situation Level of Consciousness:?Alert Patient Behavior:?Appropriate, Dependent, Guarded, Talkative, Cooperative, Anxious, Fearful, Distractible and Good Eye Contact Mood Description:?anxious Affect Description:?Constricted and Anxious Patient Cognition Impaired:?No Ability to Follow Directions:?Good Speech Pattern:?Perseverating, Spontaneous Speech and Soft-Spoken Memory Description:?Episodic Impaired Hallucinations:?Auditory Delusions:?Paranoid Ideation and Present Thought Process:?Distracted Thought Content:?positive for [place], positive for [place]um[place], positive for Perseveration and positive for Suicidal Ideation (denies) Depressive Symptoms:?Increased Anxiety, Insomnia, Difficulty Sleeping and Unhappiness Judgement:?Fair Diagnostics Vital Signs (24Hr): Vital Signs - 24 hr 11/10/20 19:52 11/10/20 19:55 11/10/20 20:37 Temperature 98.2 F Pulse Rate 82 82 82 Respiratory Rate Blood Pressure 119/62 119/62 119/62 Pulse Oximetry 11/11/20 06:00 11/11/20 08:08 Temperature 96.3 F L Pulse Rate 71 71 Respiratory Rate 18 Blood Pressure 132/73 132/73 Pulse Oximetry 98 Body Mass Index 26.0 Labs Results: 10/30/20 00:24 10/30/20 00:24 Medications Medications Current Medications Generic Name Dose Route Start Last Admin Trade Name Freq PRN Reason Stop Dose Admin Acetaminophen 650 mg 11/01/20 15:08 11/11/20 10:26 Acetaminophen 325 Mg Tablet PO 650 mg Q6H PRN Administration Headache/Pain Mild Scale (1-3) Al Hydroxide/Mg Hydroxide 30 ml 11/01/20 15:08 11/04/20 22:16 Magnesium Hydrox/Alum Hydrox 30 Ml Oral.Susp PO 30 ml Q6H PRN Administration Heartburn/Nausea Amitriptyline HCl 50 mg 11/06/20 21:00 11/10/20 20:00 Amitriptyline Hcl 50 Mg Tablet PO 50 mg BEDTIME JAMES Administration Aripiprazole 10 mg 11/08/20 09:00 11/11/20 08:08 Aripiprazole 10 Mg Tablet PO 10 mg DAILY JAMES Administration Atenolol 25 mg 10/30/20 09:00 11/11/20 08:08 Atenolol 25 Mg Tablet PO 25 mg DAILY JAMES Administration Protocol Chlorpromazine HCl 25 mg 11/02/20 16:33 11/10/20 16:34 Chlorpromazine Hcl 25 Mg Tablet PO 25 mg QID PRN Administration psychosis Chlorpromazine HCl 100 mg 11/10/20 21:00 11/10/20 19:54 Chlorpromazine Hcl 100 Mg Tablet PO 100 mg BEDTIME JAMES Administration Clonazepam 1 mg 11/04/20 21:15 11/11/20 08:07 Clonazepam 1 Mg Tablet PO 1 mg BID JAMES Administration Clonidine HCl 0.3 mg 10/30/20 21:00 11/10/20 19:52 Clonidine Hcl 0.1 Mg Tablet PO 0.3 mg BEDTIME JAMES Administration Protocol Cyclobenzaprine HCl 10 mg 10/30/20 09:00 11/11/20 08:08 Cyclobenzaprine Hcl 10 Mg Tablet PO 10 mg BID JAMES Administration Divalproex Sodium 250 mg 11/09/20 21:00 11/10/20 19:54 Divalproex Sodium Er 250 Mg Tab.Er.24h PO 11/12/20 08:00 250 mg BEDTIME JAMES Administration Fluticasone Propionate 2 spray 10/30/20 09:00 11/11/20 08:09 Fluticasone Propionate Nasal 16 Gm [place] NOSTRIL-B Not Given DAILY JAMES Hydroxyzine HCl 25 mg 11/01/20 15:08 11/10/20 16:14 Hydroxyzine Hcl 25 Mg Tablet PO 25 mg Q6H PRN Administration Anxiety Lidocaine 1 patch 11/08/20 17:15 11/11/20 08:09 Lidocaine 4 % Patch Adh..Patch TRANSDERMA Not Given DAILY [facility] Protocol Loperamide HCl 2 mg 11/01/20 17:25 11/01/20 22:14 Loperamide Hcl 2 Mg Capsule PO 2 mg Q4H PRN Administration Diarrhea Magnesium Hydroxide 30 ml 11/01/20 15:08 11/02/20 23:45 Milk Of Magnesia 30 Ml Oral.Susp PO 30 ml DAILY PRN Administration Constipation Melatonin 3 mg 11/09/20 21:00 11/10/20 19:53 Melatonin 3 Mg Tablet PO 3 mg BEDTIME JAMES Administration Mirtazapine 45 mg 10/30/20 21:00 11/10/20 19:53 Mirtazapine 15 Mg Tablet PO 45 mg BEDTIME JAMES Administration Nicotine Polacrilex 2 mg 11/02/20 11:32 Nicotine Polacrilex 2 Mg Gum BUCCAL Q2H PRN Nicotine Cravings Omeprazole 20 mg 10/30/20 09:00 11/11/20 08:08 Omeprazole 20 Mg Capsule.Dr PO 20 mg DAILY JAMES Administration Sucralfate 1 gm 10/30/20 07:30 11/11/20 11:25 Sucralfate 1 Gm Tablet PO 1 gm QIDACHS JAMES Administration Tamsulosin HCl 0.4 mg 10/30/20 09:00 11/11/20 08:08 Tamsulosin Hcl 0.4 Mg Capsule PO 0.4 mg DAILY JAMES Administration Trazodone HCl 50 mg 11/01/20 15:08 11/08/20 01:02 Trazodone Hcl 50 Mg Tablet PO 50 mg BEDTIME PRN Administration Insomnia Verapamil HCl 40 mg 10/30/20 09:00 11/11/20 08:08 Verapamil Hcl 40 Mg Tablet PO 40 mg TID JAMES Administration Protocol Zolpidem Tartrate 5 mg 11/07/20 17:13 11/10/20 19:53 Zolpidem Tartrate 5 Mg Tablet PO 5 mg BEDTIME PRN Administration Insomnia Allergies Allergies Allergy/AdvReac Type Severity Reaction Status Date / Time trazodone [TRAZODONE] Allergy Severe FACIAL Verified 04/07/20 09:20 SWELLING, swelling cat dander [CATS] Allergy Intermediate FACIAL Verified 04/07/20 09:20 ITCHING doxepin [DOXEPIN] Allergy Intermediate WEIGHT Verified 04/07/20 09:20 GAIN/LEG SWELLING Iodinated Contrast Media Allergy Intermediate ITCHING Verified 04/07/20 09:20 [IV DYE, IODINE CONTAINING CONTRAST ] nitroglycerin [NITROGLYCERIN] Allergy Unknown UNKNOWN Verified 04/07/20 09:20 tramadol [TRAMADOL] Allergy Unknown UNKNOWN, Verified 04/07/20 09:20 dry mouth ibuprofen [From MOTRIN] AdvReac Intermediate GI UPSET Verified 04/07/20 09:20 quetiapine [From SEROQUEL] AdvReac Intermediate FACIAL Verified 04/07/20 09:20 SWELLING aspirin [ASPIRIN] AdvReac Mild Stomach Verified 04/07/20 09:20 Upset Ibuprofen Allergy Unknown stomach Uncoded 04/07/20 09:20 ache IV contrast Allergy Unknown Unknown Uncoded 04/07/20 09:20 Motrin Allergy Unknown stomach Uncoded 04/07/20 09:20 pain Assessment & Plan Assessment & Plan (1) Schizoaffective disorder: Qualifiers: Schizoaffective disorder type: depressive Qualified Code(s): F25.1 - Schizoaffective disorder, depressive type Status: Acute Code(s): F25.9 - Schizoaffective disorder, unspecified Assessment and Plan: Recently switched from invega PO to abilify PO with discussion of switching to TIRADO. Has hx of multiple antipsychotic treatment, was prescribed haldol by OP psychiatrist, hx of non-adherence secondary to substance use. He does not want to address his substance use issues at this admission. He is not in acute withdrawal. He is complaining of poor sleep, depressed mood, and AH. He is adherent with medications and tolerating them well. Discussed sx of anxiety and encouraged him to utilize PRN vistaril. 1. Continue abilify 10 mg 2. discussed increasing ambien to 10 mg but against unit policy 3. Continue Depakote taper 250 mg for 3 nights then stop- pt reports not helpful in calming thoughts at bedtime 4. Melatonin 3 mg HS 5. Asks to trial Seroquel again, however, hx of facial edema 6. Continue Thorazine 100 mg HS to target poor sleep (2) Suicidal ideation: Status: Acute Code(s): R45.851 - Suicidal ideations Assessment and Plan: Denies active self-harm monitor response to milieu and treatment (3) Opioid use disorder: Status: Acute Code(s): F11.99 - Opioid use, unspecified with unspecified opioid-induced disorder Assessment and Plan: Monitor for detox encourage CSS referral (4) Alcohol use disorder: Status: Acute Assessment and Plan: Monitor for detox consider CSS referral Greater than 50% of the session was spent on counseling and/or coordination of care Reason for contiued inpatient stay Substantial Risk for: rapid decompensation and med/psych decompensation
[2020-11-11 14:21] VITALS: BP 113/63; PULSE 76
[2020-11-11] MEDS: Lidocaine 4 % Patch ADH..PATCH 1 PATCH TRANSDERMA (16:05)
[2020-11-11] MEDS: hydrOXYzine HCL 25 MG TABLET PO (16:18)
[2020-11-11 20:15] VITALS: BP 116/60; PULSE 81; TEMP 36.9
[2020-11-11 20:18] VITALS: BP 116/60; PULSE 81
[2020-11-11] MEDS: Amitriptyline HCl 50 MG TABLET PO (20:18)
[2020-11-11] MEDS: Melatonin 3 MG TABLET PO (20:18)
[2020-11-11] MEDS: chlorproMAZINE HCl 100 MG TABLET PO (20:18)
[2020-11-11] MEDS: cloNIDine HCL 0.1 MG TABLET 0.3 MG PO (20:18)
[2020-11-11 20:19] VITALS: BP 116/60; PULSE 81
[2020-11-11] MEDS: Zolpidem Tartrate 5 MG TABLET PO (20:20)
[2020-11-11] MEDS: Divalproex Sodium ER 250 MG TAB.ER.24H PO (20:20)
[2020-11-11] MEDS: Mirtazapine 15 MG TABLET 45 MG PO (20:20)
[2020-11-12 06:05] VITALS: BP 95/50; PULSE 107; TEMP 36.2
[2020-11-12] MEDS: Acetaminophen 325 MG TABLET 650 MG PO (07:30)
[2020-11-12] MEDS: Lidocaine 4 % Patch ADH..PATCH 1 PATCH TRANSDERMA (09:51)
[2020-11-12 09:52] VITALS: BP 121/60; PULSE 81
[2020-11-12] MEDS: VerapamiL HCL 40 MG TABLET PO ×3 (09:52→20:42)
[2020-11-12] MEDS: Cyclobenzaprine HCl 10 MG TABLET PO ×2 (09:52→20:42)
[2020-11-12] MEDS: clonazePAM 1 MG TABLET PO ×2 (09:52→20:42)
[2020-11-12 09:53] VITALS: BP 121/60; PULSE 81
[2020-11-12] MEDS: Tamsulosin HCL 0.4 MG CAPSULE PO (09:53)
[2020-11-12] MEDS: atenoloL 25 MG TABLET PO (09:53)
[2020-11-12] MEDS: ARIPiprazole 10 MG TABLET PO (09:53)
[2020-11-12] MEDS: Omeprazole 20 MG CAPSULE.DR PO (09:53)
[2020-11-12] MEDS: Fluticasone Propionate Nasal 16 GM SPRAY 2 SPRAY NOSTRIL-B (09:53)
[2020-11-12] MEDS: Sucralfate 1 GM TABLET PO ×4 (09:54→20:41)
[2020-11-12 15:05] VITALS: BP 116/72; PULSE 72
--- NOTE | 2020-11-12 17:30 | HO.PSYCHPN ---
Subjective Subjective Date of Service: 11/12/20 Reason For Visit: Schizoaffective Disorder-depressed Subjective Notes: Conditional Voluntary Healthcare Proxy: No Guardianship: No Interim History: Pt reports thorazine is most helpful with sleep and voices, stating I was able to sleep five hours on Thursday night. Asks for titration. Medication Compliance: Yes Side effects from medications: No Attending Groups: Intermittent Review of Systems Acute medical concerns: No Medical Review of Systems: unchanged Review of Systems Reports behavioral changes Psychiatric: Reports abnormal sleep pattern, Reports behavioral changes, Reports difficulty concentrating, Reports auditory hallucinations and Reports paranoia Mental Status Exam Mental Status Exam Patient Appearance: Appropriate Patient Orientation: Person, Place and Situation Level of Consciousness: Alert Patient Behavior: Talkative, Cooperative and Good Eye Contact Mood Description: Apprehensive Affect Description: Constricted Patient Cognition Impaired: No Ability to Follow Directions: Good Speech Pattern: Spontaneous Speech Memory Description: Intact Hallucinations: Auditory Delusions: Paranoid Ideation Thought Process: Distracted Thought Content: positive for Circumstantial and positive for Suicidal Ideation (denies) Depressive Symptoms: Insomnia and Difficulty Sleeping Judgement: Fair Diagnostics Vital Signs (24Hr): Vital Signs - 24 hr 11/11/20 20:15 11/11/20 20:18 11/11/20 20:19 Temperature 98.5 F Pulse Rate 81 81 81 Blood Pressure 116/60 116/60 116/60 11/12/20 06:05 11/12/20 09:52 11/12/20 09:53 Temperature 97.2 F Pulse Rate 107 H 81 81 Blood Pressure 95/50 L 121/60 121/60 11/12/20 15:05 Temperature Pulse Rate 72 Blood Pressure 116/72 Body Mass Index 26.0 Labs Results: 10/30/20 00:24 10/30/20 00:24 Medications Medications Current Medications Generic Name Dose Route Start Last Admin Trade Name Freq PRN Reason Stop Dose Admin Acetaminophen 650 mg 11/01/20 15:08 11/12/20 07:30 Acetaminophen 325 Mg Tablet PO 650 mg Q6H PRN Administration Headache/Pain Mild Scale (1-3) Al Hydroxide/Mg Hydroxide 30 ml 11/01/20 15:08 11/04/20 22:16 Magnesium Hydrox/Alum Hydrox 30 Ml Oral.Susp PO 30 ml Q6H PRN Administration Heartburn/Nausea Amitriptyline HCl 50 mg 11/06/20 21:00 11/11/20 20:18 Amitriptyline Hcl 50 Mg Tablet PO 50 mg BEDTIME JAMES Administration Aripiprazole 10 mg 11/08/20 09:00 11/12/20 09:53 Aripiprazole 10 Mg Tablet PO 10 mg DAILY JAMES Administration Atenolol 25 mg 10/30/20 09:00 11/12/20 09:53 Atenolol 25 Mg Tablet PO 25 mg DAILY JAMES Administration Protocol Benztropine Mesylate 1 mg 11/12/20 21:00 Benztropine Mesylate 1 Mg Tablet PO BEDTIME JAMES Chlorpromazine HCl 25 mg 11/02/20 16:33 11/10/20 16:34 Chlorpromazine Hcl 25 Mg Tablet PO 25 mg QID PRN Administration psychosis Chlorpromazine HCl 200 mg 11/12/20 21:00 Chlorpromazine Hcl 100 Mg Tablet PO BEDTIME JAMES Clonazepam 1 mg 11/04/20 21:15 11/12/20 09:52 Clonazepam 1 Mg Tablet PO 1 mg BID JAMES Administration Clonidine HCl 0.3 mg 10/30/20 21:00 11/11/20 20:18 Clonidine Hcl 0.1 Mg Tablet PO 0.3 mg BEDTIME JAMES Administration Protocol Cyclobenzaprine HCl 10 mg 10/30/20 09:00 11/12/20 09:52 Cyclobenzaprine Hcl 10 Mg Tablet PO 10 mg BID JAMES Administration Fluticasone Propionate 2 spray 10/30/20 09:00 11/12/20 09:53 Fluticasone Propionate Nasal 16 Gm [place] NOSTRIL-B 2 spray DAILY JAMES Administration Hydroxyzine HCl 25 mg 11/01/20 15:08 11/11/20 16:18 Hydroxyzine Hcl 25 Mg Tablet PO 25 mg Q6H PRN Administration Anxiety Lidocaine 1 patch 11/08/20 17:15 11/12/20 09:51 Lidocaine 4 % Patch Adh..Patch TRANSDERMA 1 patch DAILY JAMES Administration Protocol Loperamide HCl 2 mg 11/01/20 17:25 11/01/20 22:14 Loperamide Hcl 2 Mg Capsule PO 2 mg Q4H PRN Administration Diarrhea Magnesium Hydroxide 30 ml 11/01/20 15:08 11/02/20 23:45 Milk Of Magnesia 30 Ml Oral.Susp PO 30 ml DAILY PRN Administration Constipation Melatonin 3 mg 11/09/20 21:00 11/11/20 20:18 Melatonin 3 Mg Tablet PO 3 mg BEDTIME JAMES Administration Mirtazapine 45 mg 10/30/20 21:00 11/11/20 20:20 Mirtazapine 15 Mg Tablet PO 45 mg BEDTIME JAMES Administration Nicotine Polacrilex 2 mg 11/02/20 11:32 Nicotine Polacrilex 2 Mg Gum BUCCAL Q2H PRN Nicotine Cravings Omeprazole 20 mg 10/30/20 09:00 11/12/20 09:53 Omeprazole 20 Mg Capsule.Dr PO 20 mg DAILY JAMES Administration Sucralfate 1 gm 10/30/20 07:30 11/12/20 16:09 Sucralfate 1 Gm Tablet PO 1 gm QIDACHS JAMES Administration Tamsulosin HCl 0.4 mg 10/30/20 09:00 11/12/20 09:53 Tamsulosin Hcl 0.4 Mg Capsule PO 0.4 mg DAILY JAMES Administration Trazodone HCl 50 mg 11/01/20 15:08 11/08/20 01:02 Trazodone Hcl 50 Mg Tablet PO 50 mg BEDTIME PRN Administration Insomnia Verapamil HCl 40 mg 10/30/20 09:00 11/12/20 15:05 Verapamil Hcl 40 Mg Tablet PO 40 mg TID JAMES Administration Protocol Zolpidem Tartrate 5 mg 11/07/20 17:13 11/11/20 20:20 Zolpidem Tartrate 5 Mg Tablet PO 5 mg BEDTIME PRN Administration Insomnia Allergies Allergies Allergy/AdvReac Type Severity Reaction Status Date / Time trazodone [TRAZODONE] Allergy Severe FACIAL Verified 04/07/20 09:20 SWELLING, swelling cat dander [CATS] Allergy Intermediate FACIAL Verified 04/07/20 09:20 ITCHING doxepin [DOXEPIN] Allergy Intermediate WEIGHT Verified 04/07/20 09:20 GAIN/LEG SWELLING Iodinated Contrast Media Allergy Intermediate ITCHING Verified 04/07/20 09:20 [IV DYE, IODINE CONTAINING CONTRAST ] nitroglycerin [NITROGLYCERIN] Allergy Unknown UNKNOWN Verified 04/07/20 09:20 tramadol [TRAMADOL] Allergy Unknown UNKNOWN, Verified 04/07/20 09:20 dry mouth ibuprofen [From MOTRIN] AdvReac Intermediate GI UPSET Verified 04/07/20 09:20 quetiapine [From SEROQUEL] AdvReac Intermediate FACIAL Verified 04/07/20 09:20 SWELLING aspirin [ASPIRIN] AdvReac Mild Stomach Verified 04/07/20 09:20 Upset Ibuprofen Allergy Unknown stomach Uncoded 04/07/20 09:20 ache IV contrast Allergy Unknown Unknown Uncoded 04/07/20 09:20 Motrin Allergy Unknown stomach Uncoded 04/07/20 09:20 pain Assessment & Plan Assessment & Plan (1) Schizoaffective disorder: Qualifiers: Schizoaffective disorder type: depressive Qualified Code(s): F25.1 - Schizoaffective disorder, depressive type Status: Acute Code(s): F25.9 - Schizoaffective disorder, unspecified Assessment and Plan: Recently switched from invega PO to abilify PO with discussion of switching to TIRADO. Has hx of multiple antipsychotic treatment, was prescribed haldol by OP psychiatrist, hx of non-adherence secondary to substance use. He does not want to address his substance use issues at this admission. He is not in acute withdrawal. He is complaining of poor sleep, depressed mood, and AH. He is adherent with medications and tolerating them well. Discussed sx of anxiety and encouraged him to utilize PRN vistaril. 1. Continue abilify 10 mg 2. discussed increasing ambien to 10 mg but against unit policy 3. Continue Depakote taper 250 mg for 3 nights then stop- pt reports not helpful in calming thoughts at bedtime 4. Melatonin 3 mg HS 5. Asks to trial Seroquel again, however, hx of facial edema 6. Increase Thorazine 200 mg HS to target poor sleep, auditory perceptual alterations. 7. Benztropine 1 mg hs (2) Suicidal ideation: Status: Acute Code(s): R45.851 - Suicidal ideations Assessment and Plan: Denies active self-harm monitor response to milieu and treatment (3) Opioid use disorder: Status: Acute Code(s): F11.99 - Opioid use, unspecified with unspecified opioid-induced disorder Assessment and Plan: Monitor for detox encourage CSS referral (4) Alcohol use disorder: Status: Acute Assessment and Plan: Monitor for detox consider CSS referral Greater than 50% of the session was spent on counseling and/or coordination of care Patient educated on: medication risk/benefits and therapeutic strategies Informed Consent: understands and further education needed Reason for contiued inpatient stay Substantial Risk for: harm to self, inability to function, rapid decompensation and med/psych decompensation
[2020-11-12] MEDS: Mirtazapine 15 MG TABLET 45 MG PO (20:41)
[2020-11-12] MEDS: cloNIDine HCL 0.1 MG TABLET 0.3 MG PO (20:41)
[2020-11-12] MEDS: Benztropine Mesylate 1 MG TABLET PO (20:42)
[2020-11-12] MEDS: Melatonin 3 MG TABLET PO (20:42)
[2020-11-12] MEDS: Amitriptyline HCl 50 MG TABLET PO (20:42)
[2020-11-12] MEDS: chlorproMAZINE HCl 100 MG TABLET 200 MG PO (20:42)
[2020-11-12] MEDS: Zolpidem Tartrate 5 MG TABLET PO (20:51)
[2020-11-13 05:46] VITALS: BP 91/54; PULSE 97; RESP 18; TEMP 36.3; O2SAT 97
[2020-11-13] MEDS: Acetaminophen 325 MG TABLET 650 MG PO (06:08)
[2020-11-13 09:21] VITALS: BP 122/79; PULSE 76; O2SAT 98
[2020-11-13 09:22] VITALS: BP 122/79; PULSE 76
[2020-11-13] MEDS: Tamsulosin HCL 0.4 MG CAPSULE PO (09:22)
[2020-11-13] MEDS: atenoloL 25 MG TABLET PO (09:22)
[2020-11-13] MEDS: Sucralfate 1 GM TABLET PO ×4 (09:22→20:14)
[2020-11-13] MEDS: VerapamiL HCL 40 MG TABLET PO ×3 (09:22→20:13)
[2020-11-13] MEDS: ARIPiprazole 10 MG TABLET PO (09:22)
[2020-11-13] MEDS: Omeprazole 20 MG CAPSULE.DR PO (09:22)
[2020-11-13] MEDS: clonazePAM 1 MG TABLET PO ×2 (09:23→20:14)
[2020-11-13] MEDS: Cyclobenzaprine HCl 10 MG TABLET PO ×2 (09:23→20:14)
[2020-11-13] MEDS: Lidocaine 4 % Patch ADH..PATCH 1 PATCH TRANSDERMA (09:24)
[2020-11-13] MEDS: Fluticasone Propionate Nasal 16 GM SPRAY 2 SPRAY NOSTRIL-B (10:14)
[2020-11-13 14:43] VITALS: BP 121/72; PULSE 73
--- NOTE | 2020-11-13 18:57 | HO.PSYCHPN ---
Subjective Subjective Date of Service: 11/13/20 Reason For Visit: Schizoaffective Disorder-depressed Subjective Notes: Conditional Voluntary Healthcare Proxy: No Guardianship: No Medical Problems Affecting Mental Status: No Interim History: Pt reports some voices, poor sleep, anxiety. Discussed regime, review of all meds, doses. Encouraged to allow recent increase in Thorazine to continue to work. He agrees, hoping for appt for sleep study post discharge which we will attempt to schedule in consideration of COVID increase. Medication Compliance: Yes Side effects from medications: No Attending Groups: Intermittent Review of Systems Acute medical concerns: No Medical Review of Systems: unchanged Review of Systems Psychiatric: Reports abnormal sleep pattern, Reports anxiety, Reports auditory hallucinations and Reports visual hallucinations Mental Status Exam Mental Status Exam Patient Appearance: Appropriate Patient Orientation: Person, Place and Situation Level of Consciousness: Alert Patient Behavior: Guarded, Talkative and Fearful Mood Description: Suspicious, Withdrawn and Anxious Affect Description: Anxious Patient Cognition Impaired: No Ability to Follow Directions: Good Speech Pattern: Difficulty Finding Words and Spontaneous Speech Memory Description: Episodic Impaired Hallucinations: Auditory and Visual Delusions: Paranoid Ideation and Present Thought Process: Distracted Thought Content: positive for Perseveration Depressive Symptoms: Increased Anxiety, Insomnia, Diff. Making Decisions and Difficulty Sleeping Judgement: Fair Diagnostics Vital Signs (24Hr): Vital Signs - 24 hr 11/13/20 05:46 11/13/20 09:21 11/13/20 09:22 Temperature 97.4 F Pulse Rate 97 76 76 Respiratory Rate 18 Blood Pressure 91/54 L 122/79 122/79 Pulse Oximetry 97 98 11/13/20 14:43 Temperature Pulse Rate 73 Respiratory Rate Blood Pressure 121/72 Pulse Oximetry Body Mass Index 26.0 Labs Results: 10/30/20 00:24 10/30/20 00:24 Medications Medications Current Medications Generic Name Dose Route Start Last Admin Trade Name Freq PRN Reason Stop Dose Admin Acetaminophen 650 mg 11/01/20 15:08 11/13/20 06:08 Acetaminophen 325 Mg Tablet PO 650 mg Q6H PRN Administration Headache/Pain Mild Scale (1-3) Al Hydroxide/Mg Hydroxide 30 ml 11/01/20 15:08 11/04/20 22:16 Magnesium Hydrox/Alum Hydrox 30 Ml Oral.Susp PO 30 ml Q6H PRN Administration Heartburn/Nausea Amitriptyline HCl 50 mg 11/06/20 21:00 11/12/20 20:42 Amitriptyline Hcl 50 Mg Tablet PO 50 mg BEDTIME JAMES Administration Aripiprazole 10 mg 11/08/20 09:00 11/13/20 09:22 Aripiprazole 10 Mg Tablet PO 10 mg DAILY JAMES Administration Atenolol 25 mg 10/30/20 09:00 11/13/20 09:22 Atenolol 25 Mg Tablet PO 25 mg DAILY JAMES Administration Protocol Benztropine Mesylate 1 mg 11/12/20 21:00 11/12/20 20:42 Benztropine Mesylate 1 Mg Tablet PO 1 mg BEDTIME JAMES Administration Chlorpromazine HCl 25 mg 11/02/20 16:33 11/10/20 16:34 Chlorpromazine Hcl 25 Mg Tablet PO 25 mg QID PRN Administration psychosis Chlorpromazine HCl 200 mg 11/12/20 21:00 11/12/20 20:42 Chlorpromazine Hcl 100 Mg Tablet PO 200 mg BEDTIME JAMES Administration Clonazepam 1 mg 11/04/20 21:15 11/13/20 09:23 Clonazepam 1 Mg Tablet PO 1 mg BID JAMES Administration Clonidine HCl 0.3 mg 10/30/20 21:00 11/12/20 20:41 Clonidine Hcl 0.1 Mg Tablet PO 0.3 mg BEDTIME JAMES Administration Protocol Cyclobenzaprine HCl 10 mg 10/30/20 09:00 11/13/20 09:23 Cyclobenzaprine Hcl 10 Mg Tablet PO 10 mg BID JAMES Administration Fluticasone Propionate 2 spray 10/30/20 09:00 11/13/20 10:14 Fluticasone Propionate Nasal 16 Gm [place] NOSTRIL-B 2 spray DAILY JAMES Administration Hydroxyzine HCl 25 mg 11/01/20 15:08 11/11/20 16:18 Hydroxyzine Hcl 25 Mg Tablet PO 25 mg Q6H PRN Administration Anxiety Lidocaine 1 patch 11/08/20 17:15 11/13/20 09:24 Lidocaine 4 % Patch Adh..Patch TRANSDERMA 1 patch DAILY JAMES Administration Protocol Loperamide HCl 2 mg 11/01/20 17:25 11/01/20 22:14 Loperamide Hcl 2 Mg Capsule PO 2 mg Q4H PRN Administration Diarrhea Magnesium Hydroxide 30 ml 11/01/20 15:08 11/02/20 23:45 Milk Of Magnesia 30 Ml Oral.Susp PO 30 ml DAILY PRN Administration Constipation Melatonin 3 mg 11/09/20 21:00 11/12/20 20:42 Melatonin 3 Mg Tablet PO 3 mg BEDTIME JAMES Administration Mirtazapine 45 mg 10/30/20 21:00 11/12/20 20:41 Mirtazapine 15 Mg Tablet PO 45 mg BEDTIME JAMES Administration Nicotine Polacrilex 2 mg 11/02/20 11:32 Nicotine Polacrilex 2 Mg Gum BUCCAL Q2H PRN Nicotine Cravings Omeprazole 20 mg 10/30/20 09:00 11/13/20 09:22 Omeprazole 20 Mg Capsule.Dr PO 20 mg DAILY JAMES Administration Sucralfate 1 gm 10/30/20 07:30 11/13/20 18:31 Sucralfate 1 Gm Tablet PO 1 gm QIDACHS JAMES Administration Tamsulosin HCl 0.4 mg 10/30/20 09:00 11/13/20 09:22 Tamsulosin Hcl 0.4 Mg Capsule PO 0.4 mg DAILY JAMES Administration Trazodone HCl 50 mg 11/01/20 15:08 11/08/20 01:02 Trazodone Hcl 50 Mg Tablet PO 50 mg BEDTIME PRN Administration Insomnia Verapamil HCl 40 mg 10/30/20 09:00 11/13/20 14:43 Verapamil Hcl 40 Mg Tablet PO 40 mg TID JAMES Administration Protocol Zolpidem Tartrate 5 mg 11/07/20 17:13 11/12/20 20:51 Zolpidem Tartrate 5 Mg Tablet PO 5 mg BEDTIME PRN Administration Insomnia Allergies Allergies Allergy/AdvReac Type Severity Reaction Status Date / Time trazodone [TRAZODONE] Allergy Severe FACIAL Verified 04/07/20 09:20 SWELLING, swelling cat dander [CATS] Allergy Intermediate FACIAL Verified 04/07/20 09:20 ITCHING doxepin [DOXEPIN] Allergy Intermediate WEIGHT Verified 04/07/20 09:20 GAIN/LEG SWELLING Iodinated Contrast Media Allergy Intermediate ITCHING Verified 04/07/20 09:20 [IV DYE, IODINE CONTAINING CONTRAST ] nitroglycerin [NITROGLYCERIN] Allergy Unknown UNKNOWN Verified 04/07/20 09:20 tramadol [TRAMADOL] Allergy Unknown UNKNOWN, Verified 04/07/20 09:20 dry mouth ibuprofen [From MOTRIN] AdvReac Intermediate GI UPSET Verified 04/07/20 09:20 quetiapine [From SEROQUEL] AdvReac Intermediate FACIAL Verified 04/07/20 09:20 SWELLING aspirin [ASPIRIN] AdvReac Mild Stomach Verified 04/07/20 09:20 Upset Ibuprofen Allergy Unknown stomach Uncoded 04/07/20 09:20 ache IV contrast Allergy Unknown Unknown Uncoded 04/07/20 09:20 Motrin Allergy Unknown stomach Uncoded 04/07/20 09:20 pain Assessment & Plan Assessment & Plan (1) Schizoaffective disorder: Qualifiers: Schizoaffective disorder type: depressive Qualified Code(s): F25.1 - Schizoaffective disorder, depressive type Status: Acute Code(s): F25.9 - Schizoaffective disorder, unspecified Assessment and Plan: Recently switched from invega PO to abilify PO with discussion of switching to TIRADO. Has hx of multiple antipsychotic treatment, was prescribed haldol by OP psychiatrist, hx of non-adherence secondary to substance use. He does not want to address his substance use issues at this admission. He is not in acute withdrawal. He is complaining of poor sleep, depressed mood, and AH. He is adherent with medications and tolerating them well. Discussed sx of anxiety and encouraged him to utilize PRN vistaril. 1. Continue abilify 10 mg 2. discussed increasing ambien to 10 mg but against unit policy 3. Continue Depakote taper 250 mg for 3 nights then stop- pt reports not helpful in calming thoughts at bedtime 4. Melatonin 3 mg HS 5. Asks to trial Seroquel again, however, hx of facial edema 6. Increase Thorazine 200 mg HS to target poor sleep, auditory perceptual alterations. 7. Benztropine 1 mg hs 11/13/20: No changes today. Encouraged pt to allow recent titrations to work. (2) Suicidal ideation: Status: Acute Code(s): R45.851 - Suicidal ideations Assessment and Plan: Denies active self-harm monitor response to milieu and treatment (3) Opioid use disorder: Status: Acute Code(s): F11.99 - Opioid use, unspecified with unspecified opioid-induced disorder Assessment and Plan: Monitor for detox encourage CSS referral (4) Alcohol use disorder: Status: Acute Assessment and Plan: Monitor for detox consider CSS referral Greater than 50% of the session was spent on counseling and/or coordination of care Patient educated on: medication risk/benefits Informed Consent: understands and further education needed Reason for contiued inpatient stay Substantial Risk for: harm to self, inability to function and rapid decompensation
[2020-11-13] MEDS: Benztropine Mesylate 1 MG TABLET PO (20:13)
[2020-11-13] MEDS: chlorproMAZINE HCl 100 MG TABLET 200 MG PO (20:13)
[2020-11-13] MEDS: Zolpidem Tartrate 5 MG TABLET PO (20:14)
[2020-11-13] MEDS: Mirtazapine 15 MG TABLET 45 MG PO (20:14)
[2020-11-13] MEDS: Melatonin 3 MG TABLET PO (20:14)
[2020-11-13] MEDS: Amitriptyline HCl 50 MG TABLET PO (20:15)
[2020-11-13] MEDS: cloNIDine HCL 0.1 MG TABLET 0.3 MG PO (20:15)
[2020-11-13 20:22] VITALS: BP 121/70; PULSE 84; TEMP 37
[2020-11-13] MEDS: Magnesium Hydrox/Alum Hydrox 30 ML ORAL.SUSP PO (21:14)
[2020-11-14] MEDS: Acetaminophen 325 MG TABLET 650 MG PO (05:36)
[2020-11-14 05:57] VITALS: BP 124/60; PULSE 79; RESP 18; TEMP 36.3; O2SAT 98
[2020-11-14 08:14] VITALS: BP 122/65; PULSE 74
[2020-11-14] MEDS: Omeprazole 20 MG CAPSULE.DR PO (08:14)
[2020-11-14] MEDS: ARIPiprazole 10 MG TABLET PO (08:14)
[2020-11-14] MEDS: Sucralfate 1 GM TABLET PO ×4 (08:14→20:04)
[2020-11-14] MEDS: atenoloL 25 MG TABLET PO (08:14)
[2020-11-14] MEDS: Cyclobenzaprine HCl 10 MG TABLET PO ×2 (08:15→20:04)
[2020-11-14] MEDS: VerapamiL HCL 40 MG TABLET PO ×3 (08:15→20:05)
[2020-11-14] MEDS: clonazePAM 1 MG TABLET PO ×2 (08:15→20:06)
[2020-11-14] MEDS: Tamsulosin HCL 0.4 MG CAPSULE PO (08:15)
[2020-11-14] MEDS: Benztropine Mesylate 1 MG TABLET PO ×2 (12:23→20:06)
[2020-11-14 14:19] VITALS: BP 114/61; PULSE 83
[2020-11-14] MEDS: Magnesium Hydrox/Alum Hydrox 30 ML ORAL.SUSP PO (14:59)
--- NOTE | 2020-11-14 17:12 | HO.PSYCHPN ---
Subjective Subjective Date of Service: 11/14/20 Reason For Visit: Schizoaffective Disorder-depressed Subjective Notes: Conditional Voluntary Healthcare Proxy: No Guardianship: No Medical Problems Affecting Mental Status: No Interim History: Pt reports four hours of sleep last night, some improvement from the night before. Believes Thorazine to be more helpful for him at this time. Also, voices have decreased to intermittent. Anxiety remains. Discussed with pt if he felt he could participate in an out patient sleep study after discharge and he concurs. Medication Compliance: Yes Side effects from medications: No Attending Groups: Yes Review of Systems Acute medical concerns: No Medical Review of Systems: unchanged Review of Systems Psychiatric: Reports abnormal sleep pattern, Reports anxiety, Reports auditory hallucinations and Reports paranoia Mental Status Exam Mental Status Exam Patient Appearance: Appropriate Patient Orientation: Person, Place, Time and Situation Level of Consciousness: Alert Patient Behavior: Guarded, Talkative, Suspicious and Good Eye Contact Mood Description: Suspicious and Withdrawn Affect Description: Constricted Patient Cognition Impaired: No Ability to Follow Directions: Good Speech Pattern: Spontaneous Speech Memory Description: Episodic Impaired Hallucinations: Auditory (woman's voice, telling him he should .) and Visual Delusions: Paranoid Ideation Thought Process: Distracted Thought Content: positive for [place] and positive for Perseveration Depressive Symptoms: Insomnia, Diff. Making Decisions and Difficulty Sleeping Judgement: Fair Diagnostics Vital Signs (24Hr): Vital Signs - 24 hr 11/13/20 20:22 11/14/20 05:57 11/14/20 08:14 Temperature 98.6 F 97.3 F Pulse Rate 84 79 74 Respiratory Rate 18 Blood Pressure 121/70 124/60 122/65 Pulse Oximetry 98 11/14/20 14:19 Temperature Pulse Rate 83 Respiratory Rate Blood Pressure 114/61 Pulse Oximetry Body Mass Index 26.0 Labs Results: 10/30/20 00:24 10/30/20 00:24 Medications Medications Current Medications Generic Name Dose Route Start Last Admin Trade Name Freq PRN Reason Stop Dose Admin Acetaminophen 650 mg 11/01/20 15:08 11/14/20 05:36 Acetaminophen 325 Mg Tablet PO 650 mg Q6H PRN Administration Headache/Pain Mild Scale (1-3) Al Hydroxide/Mg Hydroxide 30 ml 11/01/20 15:08 11/14/20 14:59 Magnesium Hydrox/Alum Hydrox 30 Ml Oral.Susp PO 30 ml Q6H PRN Administration Heartburn/Nausea Amitriptyline HCl 50 mg 11/06/20 21:00 11/13/20 20:15 Amitriptyline Hcl 50 Mg Tablet PO 50 mg BEDTIME JAMES Administration Aripiprazole 5 mg 11/15/20 09:00 Aripiprazole 5 Mg Tablet PO DAILY JAMES Atenolol 25 mg 10/30/20 09:00 11/14/20 08:14 Atenolol 25 Mg Tablet PO 25 mg DAILY JAMES Administration Protocol Benztropine Mesylate 1 mg 11/14/20 12:15 11/14/20 12:23 Benztropine Mesylate 1 Mg Tablet PO 1 mg BID JAMES Administration Chlorpromazine HCl 25 mg 11/02/20 16:33 11/10/20 16:34 Chlorpromazine Hcl 25 Mg Tablet PO 25 mg QID PRN Administration psychosis Chlorpromazine HCl 200 mg 11/12/20 21:00 11/13/20 20:13 Chlorpromazine Hcl 100 Mg Tablet PO 200 mg BEDTIME JAMES Administration Clonazepam 1 mg 11/04/20 21:15 11/14/20 08:15 Clonazepam 1 Mg Tablet PO 1 mg BID JAMES Administration Clonidine HCl 0.3 mg 10/30/20 21:00 11/13/20 20:15 Clonidine Hcl 0.1 Mg Tablet PO 0.3 mg BEDTIME JAMES Administration Protocol Cyclobenzaprine HCl 10 mg 10/30/20 09:00 11/14/20 08:15 Cyclobenzaprine Hcl 10 Mg Tablet PO 10 mg BID JAMES Administration Fluticasone Propionate 2 spray 10/30/20 09:00 11/14/20 08:17 Fluticasone Propionate Nasal 16 Gm [place] NOSTRIL-B Not Given DAILY JAMES Hydroxyzine HCl 25 mg 11/01/20 15:08 11/11/20 16:18 Hydroxyzine Hcl 25 Mg Tablet PO 25 mg Q6H PRN Administration Anxiety Lidocaine 1 patch 11/08/20 17:15 11/14/20 08:17 Lidocaine 4 % Patch Adh..Patch TRANSDERMA Not Given DAILY JAMES Protocol Loperamide HCl 2 mg 11/01/20 17:25 11/01/20 22:14 Loperamide Hcl 2 Mg Capsule PO 2 mg Q4H PRN Administration Diarrhea Magnesium Hydroxide 30 ml 11/01/20 15:08 11/02/20 23:45 Milk Of Magnesia 30 Ml Oral.Susp PO 30 ml DAILY PRN Administration Constipation Melatonin 3 mg 11/09/20 21:00 11/13/20 20:14 Melatonin 3 Mg Tablet PO 3 mg BEDTIME JAMES Administration Mirtazapine 45 mg 10/30/20 21:00 11/13/20 20:14 Mirtazapine 15 Mg Tablet PO 45 mg BEDTIME JAMES Administration Nicotine Polacrilex 2 mg 11/02/20 11:32 Nicotine Polacrilex 2 Mg Gum BUCCAL Q2H PRN Nicotine Cravings Omeprazole 20 mg 10/30/20 09:00 11/14/20 08:14 Omeprazole 20 Mg Capsule.Dr PO 20 mg DAILY JAMES Administration Sucralfate 1 gm 10/30/20 07:30 11/14/20 16:48 Sucralfate 1 Gm Tablet PO 1 gm QIDACHS JAMES Administration Tamsulosin HCl 0.4 mg 10/30/20 09:00 11/14/20 08:15 Tamsulosin Hcl 0.4 Mg Capsule PO 0.4 mg DAILY JAMES Administration Trazodone HCl 50 mg 11/01/20 15:08 11/08/20 01:02 Trazodone Hcl 50 Mg Tablet PO 50 mg BEDTIME PRN Administration Insomnia Verapamil HCl 40 mg 10/30/20 09:00 11/14/20 14:19 Verapamil Hcl 40 Mg Tablet PO 40 mg TID JAMES Administration Protocol Zolpidem Tartrate 5 mg 11/07/20 17:13 11/13/20 20:14 Zolpidem Tartrate 5 Mg Tablet PO 5 mg BEDTIME PRN Administration Insomnia Allergies Allergies Allergy/AdvReac Type Severity Reaction Status Date / Time trazodone [TRAZODONE] Allergy Severe FACIAL Verified 04/07/20 09:20 SWELLING, swelling cat dander [CATS] Allergy Intermediate FACIAL Verified 04/07/20 09:20 ITCHING doxepin [DOXEPIN] Allergy Intermediate WEIGHT Verified 04/07/20 09:20 GAIN/LEG SWELLING Iodinated Contrast Media Allergy Intermediate ITCHING Verified 04/07/20 09:20 [IV DYE, IODINE CONTAINING CONTRAST ] nitroglycerin [NITROGLYCERIN] Allergy Unknown UNKNOWN Verified 04/07/20 09:20 tramadol [TRAMADOL] Allergy Unknown UNKNOWN, Verified 04/07/20 09:20 dry mouth ibuprofen [From MOTRIN] AdvReac Intermediate GI UPSET Verified 04/07/20 09:20 quetiapine [From SEROQUEL] AdvReac Intermediate FACIAL Verified 04/07/20 09:20 SWELLING aspirin [ASPIRIN] AdvReac Mild Stomach Verified 04/07/20 09:20 Upset Ibuprofen Allergy Unknown stomach Uncoded 04/07/20 09:20 ache IV contrast Allergy Unknown Unknown Uncoded 04/07/20 09:20 Motrin Allergy Unknown stomach Uncoded 04/07/20 09:20 pain Assessment & Plan Assessment & Plan (1) Schizoaffective disorder: Qualifiers: Schizoaffective disorder type: depressive Qualified Code(s): F25.1 - Schizoaffective disorder, depressive type Status: Acute Code(s): F25.9 - Schizoaffective disorder, unspecified Assessment and Plan: Recently switched from invega PO to abilify PO with discussion of switching to TIRADO. Has hx of multiple antipsychotic treatment, was prescribed haldol by OP psychiatrist, hx of non-adherence secondary to substance use. He does not want to address his substance use issues at this admission. He is not in acute withdrawal. He is complaining of poor sleep, depressed mood, and AH. He is adherent with medications and tolerating them well. Discussed sx of anxiety and encouraged him to utilize PRN vistaril. 1. Decrease Abilify to 5 mg 2. discussed increasing ambien to 10 mg but against unit policy 3. Continue Depakote taper 250 mg for 3 nights then stop- pt reports not helpful in calming thoughts at bedtime 4. Melatonin 3 mg HS 5. Asks to trial Seroquel again, however, hx of facial edema 6. Continue Thorazine 200 mg HS to target poor sleep, auditory perceptual alterations. 7. Increase Benztropine 1 mg BID (2) Suicidal ideation: Status: Acute Code(s): R45.851 - Suicidal ideations Assessment and Plan: Denies active self-harm monitor response to milieu and treatment (3) Opioid use disorder: Status: Acute Code(s): F11.99 - Opioid use, unspecified with unspecified opioid-induced disorder Assessment and Plan: Monitor for detox encourage CSS referral (4) Alcohol use disorder: Status: Acute Assessment and Plan: Monitor for detox consider CSS referral Greater than 50% of the session was spent on counseling and/or coordination of care Reason for contiued inpatient stay Substantial Risk for: harm to self, inability to function and rapid decompensation
[2020-11-14 18:00] VITALS: RESP 16
[2020-11-14 20:04] VITALS: BP 128/61; PULSE 75
[2020-11-14] MEDS: cloNIDine HCL 0.1 MG TABLET 0.3 MG PO (20:04)
[2020-11-14 20:05] VITALS: BP 128/61; PULSE 75
[2020-11-14] MEDS: Melatonin 3 MG TABLET PO (20:05)
[2020-11-14] MEDS: chlorproMAZINE HCl 100 MG TABLET 200 MG PO (20:06)
[2020-11-14] MEDS: Mirtazapine 15 MG TABLET 45 MG PO (20:06)
[2020-11-14] MEDS: Amitriptyline HCl 50 MG TABLET PO (20:06)
[2020-11-14] MEDS: Zolpidem Tartrate 5 MG TABLET PO (20:06)
[2020-11-15 06:00] VITALS: BP 123/71; PULSE 71; RESP 16; TEMP 36.3; O2SAT 97
[2020-11-15 07:00] VITALS: BMI 27.3
[2020-11-15] MEDS: Benztropine Mesylate 1 MG TABLET PO ×2 (09:22→20:04)
[2020-11-15] MEDS: clonazePAM 1 MG TABLET PO ×2 (09:22→20:03)
[2020-11-15] MEDS: Omeprazole 20 MG CAPSULE.DR PO (09:22)
[2020-11-15] MEDS: Cyclobenzaprine HCl 10 MG TABLET PO ×2 (09:22→20:04)
[2020-11-15] MEDS: ARIPiprazole 5 MG TABLET PO (09:22)
[2020-11-15 09:23] VITALS: BP 119/66; PULSE 91
[2020-11-15] MEDS: Sucralfate 1 GM TABLET PO ×4 (09:23→20:05)
[2020-11-15] MEDS: VerapamiL HCL 40 MG TABLET PO ×3 (09:23→20:03)
[2020-11-15] MEDS: Tamsulosin HCL 0.4 MG CAPSULE PO (09:23)
[2020-11-15] MEDS: Lidocaine 4 % Patch ADH..PATCH 1 PATCH TRANSDERMA (09:32)
[2020-11-15] MEDS: Acetaminophen 325 MG TABLET 650 MG PO (11:33)
[2020-11-15] MEDS: Fluticasone Propionate Nasal 16 GM SPRAY 2 SPRAY NOSTRIL-B (11:35)
[2020-11-15 11:36] VITALS: BP 119/66; PULSE 91
[2020-11-15] MEDS: atenoloL 25 MG TABLET PO (11:36)
[2020-11-15 15:36] VITALS: BP 111/60; PULSE 87
[2020-11-15] MEDS: hydrOXYzine HCL 25 MG TABLET PO (15:41)
[2020-11-15] MEDS: Magnesium Hydrox/Alum Hydrox 30 ML ORAL.SUSP PO (15:55)
--- NOTE | 2020-11-15 17:09 | HO.PSYCHPN ---
Subjective Subjective Date of Service: 11/15/20 Reason For Visit: Schizoaffective Disorder-depressed Subjective Notes: Conditional Voluntary Healthcare Proxy: No Guardianship: No Medical Problems Affecting Mental Status: No Interim History: Jerson continues to report insomnia. Discussed increase of Ambien to 10 mg as other psychopharmacology. interventions have not helped. Pt does report a consistent decrease in voices-these usually occur prior to sleep-describes a woman telling pt derrogatory remarks and telling him he does not deserve to live. Reports hand tremor improved with benztropine. Medication Compliance: Yes Side effects from medications: Yes (?hand tremor-?anxiety vs medication SE) Attending Groups: Yes Review of Systems Acute medical concerns: No Medical Review of Systems: unchanged Review of Systems Psychiatric: Reports abnormal sleep pattern, Reports anxiety, Reports auditory hallucinations, Reports paranoia and Reports visual hallucinations Mental Status Exam Mental Status Exam Patient Appearance: Appropriate Patient Orientation: Person, Place, Time and Situation Level of Consciousness: Alert Patient Behavior: Talkative and Good Eye Contact Mood Description: Flat Affect Description: Flat Patient Cognition Impaired: No Ability to Follow Directions: Good Speech Pattern: Spontaneous Speech Memory Description: Episodic Impaired Hallucinations: Auditory and Visual Delusions: Paranoid Ideation Thought Process: Rumination Thought Content: positive for [place] and positive for Perseveration Depressive Symptoms: Increased Anxiety, Insomnia and Difficulty Sleeping Abnormal Motor Activity Signs and Symptoms: Restlessness Judgement: Fair Diagnostics Vital Signs (24Hr): Vital Signs - 24 hr 11/14/20 18:00 11/14/20 20:04 11/14/20 20:05 Temperature Pulse Rate 75 75 Respiratory Rate 16 Blood Pressure 128/61 128/61 Pulse Oximetry 11/15/20 06:00 11/15/20 09:23 11/15/20 11:36 Temperature 97.4 F Pulse Rate 71 91 91 Respiratory Rate 16 Blood Pressure 123/71 119/66 119/66 Pulse Oximetry 97 11/15/20 15:36 Temperature Pulse Rate 87 Respiratory Rate Blood Pressure 111/60 Pulse Oximetry Body Mass Index 27.3 Labs Results: 10/30/20 00:24 10/30/20 00:24 Medications Medications Current Medications Generic Name Dose Route Start Last Admin Trade Name Freq PRN Reason Stop Dose Admin Acetaminophen 650 mg 11/01/20 15:08 11/15/20 11:33 Acetaminophen 325 Mg Tablet PO 650 mg Q6H PRN Administration Headache/Pain Mild Scale (1-3) Al Hydroxide/Mg Hydroxide 30 ml 11/01/20 15:08 11/15/20 15:55 Magnesium Hydrox/Alum Hydrox 30 Ml Oral.Susp PO 30 ml Q6H PRN Administration Heartburn/Nausea Amitriptyline HCl 50 mg 11/06/20 21:00 11/14/20 20:06 Amitriptyline Hcl 50 Mg Tablet PO 50 mg BEDTIME JAMES Administration Aripiprazole 5 mg 11/15/20 09:00 11/15/20 09:22 Aripiprazole 5 Mg Tablet PO 5 mg DAILY JAMES Administration Atenolol 25 mg 10/30/20 09:00 11/15/20 11:36 Atenolol 25 Mg Tablet PO 25 mg DAILY JAMES Administration Protocol Benztropine Mesylate 1 mg 11/14/20 12:15 11/15/20 09:22 Benztropine Mesylate 1 Mg Tablet PO 1 mg BID JAMES Administration Chlorpromazine HCl 25 mg 11/02/20 16:33 11/10/20 16:34 Chlorpromazine Hcl 25 Mg Tablet PO 25 mg QID PRN Administration psychosis Chlorpromazine HCl 200 mg 11/12/20 21:00 11/14/20 20:06 Chlorpromazine Hcl 100 Mg Tablet PO 200 mg BEDTIME JAMES Administration Clonazepam 1 mg 11/04/20 21:15 11/15/20 09:22 Clonazepam 1 Mg Tablet PO 1 mg BID JAMES Administration Clonidine HCl 0.3 mg 10/30/20 21:00 11/14/20 20:04 Clonidine Hcl 0.1 Mg Tablet PO 0.3 mg BEDTIME JAMES Administration Protocol Cyclobenzaprine HCl 10 mg 10/30/20 09:00 11/15/20 09:22 Cyclobenzaprine Hcl 10 Mg Tablet PO 10 mg BID JAMES Administration Fluticasone Propionate 2 spray 10/30/20 09:00 11/15/20 11:35 Fluticasone Propionate Nasal 16 Gm [place] NOSTRIL-B 2 spray DAILY JAMES Administration Hydroxyzine HCl 25 mg 11/01/20 15:08 11/15/20 15:41 Hydroxyzine Hcl 25 Mg Tablet PO 25 mg Q6H PRN Administration Anxiety Lidocaine 1 patch 11/08/20 17:15 11/15/20 09:32 Lidocaine 4 % Patch Adh..Patch TRANSDERMA 1 patch DAILY JAMES Administration Protocol Loperamide HCl 2 mg 11/01/20 17:25 11/01/20 22:14 Loperamide Hcl 2 Mg Capsule PO 2 mg Q4H PRN Administration Diarrhea Magnesium Hydroxide 30 ml 11/01/20 15:08 11/02/20 23:45 Milk Of Magnesia 30 Ml Oral.Susp PO 30 ml DAILY PRN Administration Constipation Melatonin 3 mg 11/09/20 21:00 11/14/20 20:05 Melatonin 3 Mg Tablet PO 3 mg BEDTIME JAMES Administration Mirtazapine 45 mg 10/30/20 21:00 11/14/20 20:06 Mirtazapine 15 Mg Tablet PO 45 mg BEDTIME JAMES Administration Nicotine Polacrilex 2 mg 11/02/20 11:32 Nicotine Polacrilex 2 Mg Gum BUCCAL Q2H PRN Nicotine Cravings Omeprazole 20 mg 10/30/20 09:00 11/15/20 09:22 Omeprazole 20 Mg Capsule.Dr PO 20 mg DAILY JAMES Administration Sucralfate 1 gm 10/30/20 07:30 11/15/20 16:30 Sucralfate 1 Gm Tablet PO 1 gm QIDACHS JAMES Administration Tamsulosin HCl 0.4 mg 10/30/20 09:00 11/15/20 09:23 Tamsulosin Hcl 0.4 Mg Capsule PO 0.4 mg DAILY JAMES Administration Verapamil HCl 40 mg 10/30/20 09:00 11/15/20 15:36 Verapamil Hcl 40 Mg Tablet PO 40 mg TID JAMES Administration Protocol Zolpidem Tartrate 5 mg 11/07/20 17:13 11/14/20 20:06 Zolpidem Tartrate 5 Mg Tablet PO 5 mg BEDTIME PRN Administration Insomnia Allergies Allergies Allergy/AdvReac Type Severity Reaction Status Date / Time trazodone [TRAZODONE] Allergy Severe FACIAL Verified 04/07/20 09:20 SWELLING, swelling cat dander [CATS] Allergy Intermediate FACIAL Verified 04/07/20 09:20 ITCHING doxepin [DOXEPIN] Allergy Intermediate WEIGHT Verified 04/07/20 09:20 GAIN/LEG SWELLING Iodinated Contrast Media Allergy Intermediate ITCHING Verified 04/07/20 09:20 [IV DYE, IODINE CONTAINING CONTRAST ] nitroglycerin [NITROGLYCERIN] Allergy Unknown UNKNOWN Verified 04/07/20 09:20 tramadol [TRAMADOL] Allergy Unknown UNKNOWN, Verified 04/07/20 09:20 dry mouth ibuprofen [From MOTRIN] AdvReac Intermediate GI UPSET Verified 04/07/20 09:20 quetiapine [From SEROQUEL] AdvReac Intermediate FACIAL Verified 04/07/20 09:20 SWELLING aspirin [ASPIRIN] AdvReac Mild Stomach Verified 04/07/20 09:20 Upset Ibuprofen Allergy Unknown stomach Uncoded 04/07/20 09:20 ache IV contrast Allergy Unknown Unknown Uncoded 04/07/20 09:20 Motrin Allergy Unknown stomach Uncoded 04/07/20 09:20 pain Assessment & Plan Assessment & Plan (1) Schizoaffective disorder: Qualifiers: Schizoaffective disorder type: depressive Qualified Code(s): F25.1 - Schizoaffective disorder, depressive type Status: Acute Code(s): F25.9 - Schizoaffective disorder, unspecified Assessment and Plan: Recently switched from invega PO to abilify PO with discussion of switching to TIRADO. Has hx of multiple antipsychotic treatment, was prescribed haldol by OP psychiatrist, hx of non-adherence secondary to substance use. He does not want to address his substance use issues at this admission. He is not in acute withdrawal. He is complaining of poor sleep, depressed mood, and AH. He is adherent with medications and tolerating them well. Discussed sx of anxiety and encouraged him to utilize PRN vistaril. 1. Decrease Abilify to 5 mg 2. Increase Ambien to 10 mg HS. This is pt's dose in the community and we have had poor success in sleep maintenance with other agent trials during this admission. 3. Continue Depakote taper 250 mg for 3 nights then stop- pt reports not helpful in calming thoughts at bedtime 4. Melatonin 3 mg HS 5. Asks to trial Seroquel again, however, hx of facial edema 6. Continue Thorazine 200 mg HS to target poor sleep, auditory perceptual alterations. 7. Increase Benztropine 1 mg BID (2) Suicidal ideation: Status: Acute Code(s): R45.851 - Suicidal ideations Assessment and Plan: Denies active self-harm monitor response to milieu and treatment (3) Opioid use disorder: Status: Acute Code(s): F11.99 - Opioid use, unspecified with unspecified opioid-induced disorder Assessment and Plan: Monitor for detox encourage [facility] referral (4) Alcohol use disorder: Status: Acute Assessment and Plan: Monitor for detox consider CSS referral Greater than 50% of the session was spent on counseling and/or coordination of care Reason for contiued inpatient stay Substantial Risk for: harm to self, inability to function and rapid decompensation
[2020-11-15 18:00] VITALS: BP 111/63; PULSE 87; RESP 16
[2020-11-15 20:03] VITALS: BP 104/56; PULSE 85
[2020-11-15] MEDS: Melatonin 3 MG TABLET PO (20:03)
[2020-11-15] MEDS: cloNIDine HCL 0.1 MG TABLET 0.3 MG PO (20:03)
[2020-11-15] MEDS: Amitriptyline HCl 50 MG TABLET PO (20:04)
[2020-11-15] MEDS: Mirtazapine 15 MG TABLET 45 MG PO (20:04)
[2020-11-15] MEDS: chlorproMAZINE HCl 100 MG TABLET 200 MG PO (20:04)
[2020-11-15] MEDS: Zolpidem Tartrate 5 MG TABLET PO ×2 (20:05→20:55)
[2020-11-16] MEDS: Acetaminophen 325 MG TABLET 650 MG PO ×2 (05:58→22:13)
[2020-11-16 07:11] VITALS: BP 119/66; PULSE 77; RESP 18; TEMP 35.9; O2SAT 98
[2020-11-16] MEDS: Cyclobenzaprine HCl 10 MG TABLET PO ×2 (08:49→19:54)
[2020-11-16] MEDS: clonazePAM 1 MG TABLET PO ×2 (08:49→19:54)
[2020-11-16] MEDS: ARIPiprazole 5 MG TABLET PO (08:50)
[2020-11-16] MEDS: Benztropine Mesylate 1 MG TABLET PO ×2 (08:50→19:55)
[2020-11-16] MEDS: Omeprazole 20 MG CAPSULE.DR PO (08:50)
[2020-11-16 08:51] VITALS: BP 115/66; PULSE 79
[2020-11-16] MEDS: atenoloL 25 MG TABLET PO (08:51)
[2020-11-16] MEDS: VerapamiL HCL 40 MG TABLET PO ×3 (08:51→19:54)
[2020-11-16] MEDS: Tamsulosin HCL 0.4 MG CAPSULE PO (08:51)
[2020-11-16] MEDS: Sucralfate 1 GM TABLET PO ×4 (08:52→19:56)
[2020-11-16] MEDS: Fluticasone Propionate Nasal 16 GM SPRAY 2 SPRAY NOSTRIL-B (12:09)
[2020-11-16 14:39] VITALS: BP 117/69; PULSE 77
--- NOTE | 2020-11-16 17:21 | HO.PSYCHPN ---
Subjective Subjective Date of Service: 11/16/20 Reason For Visit: Schizoaffective Disorder-depressed Subjective Notes: Conditional Voluntary Healthcare Proxy: No Guardianship: No Medical Problems Affecting Mental Status: No Interim History: Reports no improvement with sleep with return to out pt dosing of Ambien. Discussed efficacy of current Thorazine dosage-pt believes somewhat helpful for perceptual alterations but overall not much change in sx profile at 200 mg. Review of options-hx of trials of olanzapine, risperdal with poor outcome. Discussed typical agents hx of efficacy. Pt asks to trial another agent. Medication Compliance: Yes Side effects from medications: No Attending Groups: Intermittent Review of Systems Acute medical concerns: No Medical Review of Systems: unchanged Review of Systems Psychiatric: Reports abnormal sleep pattern, Reports anxiety, Reports auditory hallucinations and Reports paranoia Mental Status Exam Mental Status Exam Patient Appearance: Appropriate Patient Orientation: Person, Place, Time and Situation Level of Consciousness: Alert Patient Behavior: Talkative and Good Eye Contact Mood Description: Withdrawn and Anxious Affect Description: Flat Patient Cognition Impaired: No Ability to Follow Directions: Good Speech Pattern: Spontaneous Speech Memory Description: Intact Hallucinations: Auditory and Visual Delusions: Not Present Thought Process: Distracted Thought Content: positive for [place] Depressive Symptoms: Increased Anxiety, Insomnia and Difficulty Sleeping Judgement: Fair Diagnostics Vital Signs (24Hr): Vital Signs - 24 hr 11/15/20 18:00 11/15/20 20:03 11/16/20 07:11 Temperature 96.7 F L Pulse Rate 87 85 77 Respiratory Rate 16 18 Blood Pressure 111/63 104/56 L 119/66 Pulse Oximetry 98 11/16/20 08:51 11/16/20 14:39 Temperature Pulse Rate 79 77 Respiratory Rate Blood Pressure 115/66 117/69 Pulse Oximetry Body Mass Index 27.3 Labs Results: 10/30/20 00:24 10/30/20 00:24 Medications Medications Current Medications Generic Name Dose Route Start Last Admin Trade Name Freq PRN Reason Stop Dose Admin Acetaminophen 650 mg 11/01/20 15:08 11/16/20 05:58 Acetaminophen 325 Mg Tablet PO 650 mg Q6H PRN Administration Headache/Pain Mild Scale (1-3) Al Hydroxide/Mg Hydroxide 30 ml 11/01/20 15:08 11/15/20 15:55 Magnesium Hydrox/Alum Hydrox 30 Ml Oral.Susp PO 30 ml Q6H PRN Administration Heartburn/Nausea Amitriptyline HCl 50 mg 11/06/20 21:00 11/15/20 20:04 Amitriptyline Hcl 50 Mg Tablet PO 50 mg BEDTIME JAMES Administration Aripiprazole 5 mg 11/15/20 09:00 11/16/20 08:50 Aripiprazole 5 Mg Tablet PO 5 mg DAILY JAMES Administration Atenolol 25 mg 10/30/20 09:00 11/16/20 08:51 Atenolol 25 Mg Tablet PO 25 mg DAILY JAMES Administration Protocol Benztropine Mesylate 1 mg 11/14/20 12:15 11/16/20 08:50 Benztropine Mesylate 1 Mg Tablet PO 1 mg BID JAMES Administration Chlorpromazine HCl 25 mg 11/02/20 16:33 11/10/20 16:34 Chlorpromazine Hcl 25 Mg Tablet PO 25 mg QID PRN Administration psychosis Chlorpromazine HCl 200 mg 11/12/20 21:00 11/15/20 20:04 Chlorpromazine Hcl 100 Mg Tablet PO 200 mg BEDTIME JAMES Administration Clonazepam 1 mg 11/04/20 21:15 11/16/20 08:49 Clonazepam 1 Mg Tablet PO 1 mg BID JAMES Administration Clonidine HCl 0.3 mg 10/30/20 21:00 11/15/20 20:03 Clonidine Hcl 0.1 Mg Tablet PO 0.3 mg BEDTIME JAMES Administration Protocol Cyclobenzaprine HCl 10 mg 10/30/20 09:00 11/16/20 08:49 Cyclobenzaprine Hcl 10 Mg Tablet PO 10 mg BID JAMES Administration Fluticasone Propionate 2 spray 10/30/20 09:00 11/16/20 12:09 Fluticasone Propionate Nasal 16 Gm [place] NOSTRIL-B 2 spray DAILY JAMES Administration Hydroxyzine HCl 25 mg 11/01/20 15:08 11/15/20 15:41 Hydroxyzine Hcl 25 Mg Tablet PO 25 mg Q6H PRN Administration Anxiety Lidocaine 1 patch 11/08/20 17:15 11/16/20 10:43 Lidocaine 4 % Patch Adh..Patch TRANSDERMA Not Given DAILY JAMES Protocol Loperamide HCl 2 mg 11/01/20 17:25 11/01/20 22:14 Loperamide Hcl 2 Mg Capsule PO 2 mg Q4H PRN Administration Diarrhea Magnesium Hydroxide 30 ml 11/01/20 15:08 11/02/20 23:45 Milk Of Magnesia 30 Ml Oral.Susp PO 30 ml DAILY PRN Administration Constipation Melatonin 3 mg 11/09/20 21:00 11/15/20 20:03 Melatonin 3 Mg Tablet PO 3 mg BEDTIME JAMES Administration Mirtazapine 45 mg 10/30/20 21:00 11/15/20 20:04 Mirtazapine 15 Mg Tablet PO 45 mg BEDTIME JAMES Administration Nicotine Polacrilex 2 mg 11/02/20 11:32 Nicotine Polacrilex 2 Mg Gum BUCCAL Q2H PRN Nicotine Cravings Omeprazole 20 mg 10/30/20 09:00 11/16/20 08:50 Omeprazole 20 Mg Capsule.Dr PO 20 mg DAILY JAMES Administration Sucralfate 1 gm 10/30/20 07:30 11/16/20 16:58 Sucralfate 1 Gm Tablet PO 1 gm QIDACHS JAMES Administration Tamsulosin HCl 0.4 mg 10/30/20 09:00 11/16/20 08:51 Tamsulosin Hcl 0.4 Mg Capsule PO 0.4 mg DAILY JAMES Administration Verapamil HCl 40 mg 10/30/20 09:00 11/16/20 14:39 Verapamil Hcl 40 Mg Tablet PO 40 mg TID JAMES Administration Protocol Zolpidem Tartrate 10 mg 11/15/20 20:37 Zolpidem Tartrate 5 Mg Tablet PO BEDTIME PRN Insomnia Allergies Allergies Allergy/AdvReac Type Severity Reaction Status Date / Time trazodone [TRAZODONE] Allergy Severe FACIAL Verified 04/07/20 09:20 SWELLING, swelling cat dander [CATS] Allergy Intermediate FACIAL Verified 04/07/20 09:20 ITCHING doxepin [DOXEPIN] Allergy Intermediate WEIGHT Verified 04/07/20 09:20 GAIN/LEG SWELLING Iodinated Contrast Media Allergy Intermediate ITCHING Verified 04/07/20 09:20 [IV DYE, IODINE CONTAINING CONTRAST ] nitroglycerin [NITROGLYCERIN] Allergy Unknown UNKNOWN Verified 04/07/20 09:20 tramadol [TRAMADOL] Allergy Unknown UNKNOWN, Verified 04/07/20 09:20 dry mouth ibuprofen [From MOTRIN] AdvReac Intermediate GI UPSET Verified 04/07/20 09:20 quetiapine [From SEROQUEL] AdvReac Intermediate FACIAL Verified 04/07/20 09:20 SWELLING aspirin [ASPIRIN] AdvReac Mild Stomach Verified 04/07/20 09:20 Upset Ibuprofen Allergy Unknown stomach Uncoded 04/07/20 09:20 ache IV contrast Allergy Unknown Unknown Uncoded 04/07/20 09:20 Motrin Allergy Unknown stomach Uncoded 04/07/20 09:20 pain Assessment & Plan Assessment & Plan (1) Schizoaffective disorder: Qualifiers: Schizoaffective disorder type: depressive Qualified Code(s): F25.1 - Schizoaffective disorder, depressive type Status: Acute Code(s): F25.9 - Schizoaffective disorder, unspecified Assessment and Plan: Continues to report insomnia, perceptual alterations, anxiety. Discontinue Thorazine. Prolixin 5 mg po HS. (2) Suicidal ideation: Status: Acute Code(s): R45.851 - Suicidal ideations Assessment and Plan: Denies active self-harm monitor response to milieu and treatment (3) Opioid use disorder: Status: Acute Code(s): F11.99 - Opioid use, unspecified with unspecified opioid-induced disorder Assessment and Plan: Monitor for detox encourage [facility] referral. Pt agrees and would like to admit to [facility] (4) Alcohol use disorder: Status: Acute Assessment and Plan: Monitor for detox consider [facility] referral. Pt agrees and would like to admit to [facility]. Greater than 50% of the session was spent on counseling and/or coordination of care Patient educated on: medication risk/benefits Informed Consent: understands and further education needed Reason for contiued inpatient stay Substantial Risk for: inability to function and rapid decompensation
[2020-11-16 19:35] VITALS: BP 123/63; PULSE 85; TEMP 36.6
[2020-11-16 19:54] VITALS: BP 123/63; PULSE 85
[2020-11-16] MEDS: Melatonin 3 MG TABLET PO (19:54)
[2020-11-16] MEDS: Mirtazapine 15 MG TABLET 45 MG PO (19:54)
[2020-11-16] MEDS: fluPHENAZine HCl 5 MG TABLET PO (19:54)
[2020-11-16 19:55] VITALS: BP 123/63; PULSE 85
[2020-11-16] MEDS: cloNIDine HCL 0.1 MG TABLET 0.3 MG PO (19:55)
[2020-11-16] MEDS: Amitriptyline HCl 50 MG TABLET PO (19:55)
[2020-11-16] MEDS: Zolpidem Tartrate 5 MG TABLET 10 MG PO (19:55)
[2020-11-16] MEDS: Magnesium Hydrox/Alum Hydrox 30 ML ORAL.SUSP PO (23:40)
[2020-11-17 06:00] VITALS: BP 115/60; PULSE 74; RESP 16; TEMP 36.4; O2SAT 97
[2020-11-17] MEDS: Sucralfate 1 GM TABLET PO ×4 (08:07→20:16)
[2020-11-17] MEDS: Tamsulosin HCL 0.4 MG CAPSULE PO (08:07)
[2020-11-17] MEDS: Fluticasone Propionate Nasal 16 GM SPRAY 2 SPRAY NOSTRIL-B (08:07)
[2020-11-17] MEDS: Cyclobenzaprine HCl 10 MG TABLET PO (08:08)
[2020-11-17] MEDS: Benztropine Mesylate 1 MG TABLET PO ×2 (08:09→20:19)
[2020-11-17] MEDS: clonazePAM 1 MG TABLET PO ×2 (08:09→20:20)
[2020-11-17] MEDS: ARIPiprazole 5 MG TABLET PO (08:09)
[2020-11-17] MEDS: Acetaminophen 325 MG TABLET 650 MG PO (08:09)
[2020-11-17] MEDS: Omeprazole 20 MG CAPSULE.DR PO (08:10)
[2020-11-17 08:18] VITALS: BP 120/56; PULSE 75
[2020-11-17] MEDS: Magnesium Hydrox/Alum Hydrox 30 ML ORAL.SUSP PO (11:11)
--- NOTE | 2020-11-17 11:18 | HO.PSYCHPN ---
Subjective Subjective Date of Service: 11/17/20 Reason For Visit: Schizoaffective Disorder-depressed Interim History: Patient was seen in rounds today. He states that he is having a lot of back pain and his current medications are not helpful. I will discontinue the cyclobenzaprine and try him on baclofen 10 mg t.i.d.. Side effects reviewed. He also has been having trouble sleeping. No signs of withdrawals. No SI/HI. No other complaints or changes today. Review of Systems Review of Systems Ten point review of system is negative except for back pain and sleep-related issues Mental Status Exam Mental Status Exam Narrative: In today's visit he is alert, oriented and pleasant. Normal speech. Good eye contact. Appropriate affect. No signs of psychosis. No SI/HI. Cognitively intact. Judgment is intact Diagnostics Vital Signs (24Hr): Vital Signs - 24 hr 11/16/20 14:39 11/16/20 19:35 11/16/20 19:54 Temperature 97.9 F Pulse Rate 77 85 85 Respiratory Rate Blood Pressure 117/69 123/63 123/63 Pulse Oximetry 11/16/20 19:55 11/17/20 06:00 11/17/20 08:18 Temperature 97.5 F Pulse Rate 85 74 75 Respiratory Rate 16 Blood Pressure 123/63 115/60 120/56 L Pulse Oximetry 97 Body Mass Index 27.3 Labs Results: 10/30/20 00:24 10/30/20 00:24 Medications Medications Current Medications Generic Name Dose Route Start Last Admin Trade Name Freq PRN Reason Stop Dose Admin Acetaminophen 650 mg 11/01/20 15:08 11/17/20 08:09 Acetaminophen 325 Mg Tablet PO 650 mg Q6H PRN Administration Headache/Pain Mild Scale (1-3) Al Hydroxide/Mg Hydroxide 30 ml 11/01/20 15:08 11/17/20 11:11 Magnesium Hydrox/Alum Hydrox 30 Ml Oral.Susp PO 30 ml Q6H PRN Administration Heartburn/Nausea Amitriptyline HCl 50 mg 11/06/20 21:00 11/16/20 19:55 Amitriptyline Hcl 50 Mg Tablet PO 50 mg BEDTIME JAMES Administration Aripiprazole 5 mg 11/15/20 09:00 11/17/20 08:09 Aripiprazole 5 Mg Tablet PO 5 mg DAILY JAMES Administration Atenolol 25 mg 10/30/20 09:00 11/17/20 08:18 Atenolol 25 Mg Tablet PO Not Given DAILY JAMES Protocol Baclofen 10 mg 11/17/20 15:00 Baclofen 10 Mg Tablet PO TID JAMES Benztropine Mesylate 1 mg 11/14/20 12:15 11/17/20 08:09 Benztropine Mesylate 1 Mg Tablet PO 1 mg BID JAMES Administration Clonazepam 1 mg 11/04/20 21:15 11/17/20 08:09 Clonazepam 1 Mg Tablet PO 1 mg BID JAMES Administration Clonidine HCl 0.3 mg 10/30/20 21:00 11/16/20 19:55 Clonidine Hcl 0.1 Mg Tablet PO 0.3 mg BEDTIME JAMES Administration Protocol Fluphenazine HCl 5 mg 11/16/20 21:00 11/16/20 19:54 Fluphenazine Hcl 5 Mg Tablet PO 5 mg BEDTIME JAMES Administration Fluticasone Propionate 2 spray 10/30/20 09:00 11/17/20 08:07 Fluticasone Propionate Nasal 16 Gm [place] NOSTRIL-B 2 spray DAILY JAMES Administration Hydroxyzine HCl 25 mg 11/01/20 15:08 11/15/20 15:41 Hydroxyzine Hcl 25 Mg Tablet PO 25 mg Q6H PRN Administration Anxiety Lidocaine 1 patch 11/08/20 17:15 11/17/20 08:16 Lidocaine 4 % Patch Adh..Patch TRANSDERMA Not Given DAILY JAMES Protocol Loperamide HCl 2 mg 11/01/20 17:25 11/01/20 22:14 Loperamide Hcl 2 Mg Capsule PO 2 mg Q4H PRN Administration Diarrhea Magnesium Hydroxide 30 ml 11/01/20 15:08 11/02/20 23:45 Milk Of Magnesia 30 Ml Oral.Susp PO 30 ml DAILY PRN Administration Constipation Melatonin 3 mg 11/09/20 21:00 11/16/20 19:54 Melatonin 3 Mg Tablet PO 3 mg BEDTIME JAMES Administration Mirtazapine 45 mg 10/30/20 21:00 11/16/20 19:54 Mirtazapine 15 Mg Tablet PO 45 mg BEDTIME JAMES Administration Nicotine Polacrilex 2 mg 11/02/20 11:32 Nicotine Polacrilex 2 Mg Gum BUCCAL Q2H PRN Nicotine Cravings Omeprazole 20 mg 10/30/20 09:00 11/17/20 08:10 Omeprazole 20 Mg Capsule.Dr PO 20 mg DAILY JAMES Administration Sucralfate 1 gm 10/30/20 07:30 11/17/20 08:07 Sucralfate 1 Gm Tablet PO 1 gm QIDACHS JAMES Administration Tamsulosin HCl 0.4 mg 10/30/20 09:00 11/17/20 08:07 Tamsulosin Hcl 0.4 Mg Capsule PO 0.4 mg DAILY JAMES Administration Verapamil HCl 40 mg 10/30/20 09:00 11/17/20 08:18 Verapamil Hcl 40 Mg Tablet PO Not Given TID [facility] Protocol Zolpidem Tartrate 10 mg 11/15/20 20:37 11/16/20 19:55 Zolpidem Tartrate 5 Mg Tablet PO 10 mg BEDTIME PRN Administration Insomnia Allergies Allergies Allergy/AdvReac Type Severity Reaction Status Date / Time trazodone [TRAZODONE] Allergy Severe FACIAL Verified 04/07/20 09:20 SWELLING, swelling cat dander [CATS] Allergy Intermediate FACIAL Verified 04/07/20 09:20 ITCHING doxepin [DOXEPIN] Allergy Intermediate WEIGHT Verified 04/07/20 09:20 GAIN/LEG SWELLING Iodinated Contrast Media Allergy Intermediate ITCHING Verified 04/07/20 09:20 [IV DYE, IODINE CONTAINING CONTRAST ] nitroglycerin [NITROGLYCERIN] Allergy Unknown UNKNOWN Verified 04/07/20 09:20 tramadol [TRAMADOL] Allergy Unknown UNKNOWN, Verified 04/07/20 09:20 dry mouth ibuprofen [From MOTRIN] AdvReac Intermediate GI UPSET Verified 04/07/20 09:20 quetiapine [From SEROQUEL] AdvReac Intermediate FACIAL Verified 04/07/20 09:20 SWELLING aspirin [ASPIRIN] AdvReac Mild Stomach Verified 04/07/20 09:20 Upset Ibuprofen Allergy Unknown stomach Uncoded 04/07/20 09:20 ache IV contrast Allergy Unknown Unknown Uncoded 04/07/20 09:20 Motrin Allergy Unknown stomach Uncoded 04/07/20 09:20 pain Assessment & Plan Assessment & Plan (1) Schizoaffective disorder: Qualifiers: Schizoaffective disorder type: depressive Qualified Code(s): F25.1 - Schizoaffective disorder, depressive type Status: Acute Code(s): F25.9 - Schizoaffective disorder, unspecified Assessment and Plan: Discontinue cyclobenzaprine and start baclofen 10 mg t.i.d. (2) Suicidal ideation: Status: Acute Code(s): R45.851 - Suicidal ideations Assessment and Plan: Denies active self-harm monitor response to milieu and treatment (3) Opioid use disorder: Status: Acute Code(s): F11.99 - Opioid use, unspecified with unspecified opioid-induced disorder Assessment and Plan: Monitor for detox encourage [facility] referral. Pt agrees and would like to admit to [facility] (4) Alcohol use disorder: Status: Acute Assessment and Plan: Monitor for detox consider [facility] referral. Pt agrees and would like to admit to [facility]. Greater than 50% of the session was spent on counseling and/or coordination of care Reason for contiued inpatient stay Substantial Risk for: other
[2020-11-17 14:36] VITALS: BP 133/72; PULSE 104
[2020-11-17] MEDS: VerapamiL HCL 40 MG TABLET PO ×2 (14:36→20:18)
[2020-11-17] MEDS: Baclofen 10 MG TABLET PO ×2 (14:38→20:20)
[2020-11-17 18:00] VITALS: BP 121/65; PULSE 107; TEMP 36.8
[2020-11-17 20:16] VITALS: BP 121/65; PULSE 107
[2020-11-17] MEDS: cloNIDine HCL 0.1 MG TABLET 0.3 MG PO (20:16)
[2020-11-17 20:18] VITALS: BP 121/65; PULSE 107
[2020-11-17] MEDS: fluPHENAZine HCl 5 MG TABLET PO (20:19)
[2020-11-17] MEDS: Amitriptyline HCl 50 MG TABLET PO (20:19)
[2020-11-17] MEDS: Zolpidem Tartrate 5 MG TABLET 10 MG PO (20:20)
[2020-11-17] MEDS: Mirtazapine 15 MG TABLET 45 MG PO (20:20)
[2020-11-17] MEDS: Melatonin 3 MG TABLET PO (20:20)
[2020-11-18 06:00] VITALS: BP 119/72; PULSE 80; RESP 16; TEMP 36.5; O2SAT 96
[2020-11-18 08:09] VITALS: BP 129/78; PULSE 77
[2020-11-18] MEDS: VerapamiL HCL 40 MG TABLET PO ×3 (08:09→20:35)
[2020-11-18] MEDS: Sucralfate 1 GM TABLET PO ×4 (08:09→20:31)
[2020-11-18] MEDS: clonazePAM 1 MG TABLET PO ×2 (08:09→20:34)
[2020-11-18] MEDS: Acetaminophen 325 MG TABLET 650 MG PO (08:09)
[2020-11-18] MEDS: Tamsulosin HCL 0.4 MG CAPSULE PO (08:09)
[2020-11-18] MEDS: ARIPiprazole 5 MG TABLET PO (08:09)
[2020-11-18 08:10] VITALS: BP 129/78; PULSE 77
[2020-11-18] MEDS: Omeprazole 20 MG CAPSULE.DR PO (08:10)
[2020-11-18] MEDS: Baclofen 10 MG TABLET PO ×3 (08:10→20:37)
[2020-11-18] MEDS: atenoloL 25 MG TABLET PO (08:10)
[2020-11-18] MEDS: Benztropine Mesylate 1 MG TABLET PO ×2 (08:10→20:36)
[2020-11-18] MEDS: Fluticasone Propionate Nasal 16 GM SPRAY 2 SPRAY NOSTRIL-B (08:10)
--- NOTE | 2020-11-18 09:52 | P.PNPSI_ITS ---
Subjective Subjective Date of Service: 11/18/20 Reason For Visit: Schizoaffective Disorder-depressed Subjective Notes: Conditional Voluntary Interim History: patient was seen in rounds today. He has continued to be anxious and depressed and also has some auditory hallucinations. Eating and sleeping adequately. No complaints except for back pain which is better.No side effects. Current regimen reviewed. No changes were made today Medication Compliance: Yes Side effects from medications: No Mental Status Exam Mental Status Exam Narrative: in today's visit he is alert, oriented in pleasant. Normal speech. Good eye contact. Affect is contained in constricted. He does have some auditory hallucinations intermittently. No SI. Cognitively intact Diagnostics Vital Signs (24Hr): Vital Signs - 24 hr 11/17/20 14:36 11/17/20 18:00 11/17/20 20:16 Temperature 98.2 F Pulse Rate 104 H 107 H 107 H Respiratory Rate Blood Pressure 133/72 121/65 121/65 Pulse Oximetry 11/17/20 20:18 11/18/20 06:00 11/18/20 08:09 Temperature 97.7 F Pulse Rate 107 H 80 77 Respiratory Rate 16 Blood Pressure 121/65 119/72 129/78 Pulse Oximetry 96 11/18/20 08:10 Temperature Pulse Rate 77 Respiratory Rate Blood Pressure 129/78 Pulse Oximetry Body Mass Index 27.3 Labs Results: 10/30/20 00:24 10/30/20 00:24 Medications Medications Current Medications Generic Name Dose Route Start Last Admin Trade Name Freq PRN Reason Stop Dose Admin Acetaminophen 650 mg 11/01/20 15:08 11/18/20 08:09 Acetaminophen 325 Mg Tablet PO 650 mg Q6H PRN Administration Headache/Pain Mild Scale (1-3) Al Hydroxide/Mg Hydroxide 30 ml 11/01/20 15:08 11/17/20 11:11 Magnesium Hydrox/Alum Hydrox 30 Ml Oral.Susp PO 30 ml Q6H PRN Administration Heartburn/Nausea Amitriptyline HCl 50 mg 11/06/20 21:00 11/17/20 20:19 Amitriptyline Hcl 50 Mg Tablet PO 50 mg BEDTIME JAMES Administration Aripiprazole 5 mg 11/15/20 09:00 11/18/20 08:09 Aripiprazole 5 Mg Tablet PO 5 mg DAILY JAMES Administration Atenolol 25 mg 10/30/20 09:00 11/18/20 08:10 Atenolol 25 Mg Tablet PO 25 mg DAILY JAMES Administration Protocol Baclofen 10 mg 11/17/20 15:00 11/18/20 08:10 Baclofen 10 Mg Tablet PO 10 mg TID JAMES Administration Benztropine Mesylate 1 mg 11/14/20 12:15 11/18/20 08:10 Benztropine Mesylate 1 Mg Tablet PO 1 mg BID JAMES Administration Clonazepam 1 mg 11/04/20 21:15 11/18/20 08:09 Clonazepam 1 Mg Tablet PO 1 mg BID JAMES Administration Clonidine HCl 0.3 mg 10/30/20 21:00 11/17/20 20:16 Clonidine Hcl 0.1 Mg Tablet PO 0.3 mg BEDTIME JAMES Administration Protocol Fluphenazine HCl 5 mg 11/16/20 21:00 11/17/20 20:19 Fluphenazine Hcl 5 Mg Tablet PO 5 mg BEDTIME JAMES Administration Fluticasone Propionate 2 spray 10/30/20 09:00 11/18/20 08:10 Fluticasone Propionate Nasal 16 Gm [place] NOSTRIL-B 2 spray DAILY JAMES Administration Hydroxyzine HCl 25 mg 11/01/20 15:08 11/15/20 15:41 Hydroxyzine Hcl 25 Mg Tablet PO 25 mg Q6H PRN Administration Anxiety Lidocaine 1 patch 11/08/20 17:15 11/18/20 08:16 Lidocaine 4 % Patch Adh..Patch TRANSDERMA Not Given DAILY JAMES Protocol Loperamide HCl 2 mg 11/01/20 17:25 11/01/20 22:14 Loperamide Hcl 2 Mg Capsule PO 2 mg Q4H PRN Administration Diarrhea Magnesium Hydroxide 30 ml 11/01/20 15:08 11/02/20 23:45 Milk Of Magnesia 30 Ml Oral.Susp PO 30 ml DAILY PRN Administration Constipation Melatonin 3 mg 11/09/20 21:00 11/17/20 20:20 Melatonin 3 Mg Tablet PO 3 mg BEDTIME JAMES Administration Mirtazapine 45 mg 10/30/20 21:00 11/17/20 20:20 Mirtazapine 15 Mg Tablet PO 45 mg BEDTIME JAMES Administration Nicotine Polacrilex 2 mg 11/02/20 11:32 Nicotine Polacrilex 2 Mg Gum BUCCAL Q2H PRN Nicotine Cravings Omeprazole 20 mg 10/30/20 09:00 11/18/20 08:10 Omeprazole 20 Mg Capsule.Dr PO 20 mg DAILY JAMES Administration Sucralfate 1 gm 10/30/20 07:30 11/18/20 08:09 Sucralfate 1 Gm Tablet PO 1 gm QIDACHS JAMES Administration Tamsulosin HCl 0.4 mg 10/30/20 09:00 11/18/20 08:09 Tamsulosin Hcl 0.4 Mg Capsule PO 0.4 mg DAILY JAMES Administration Verapamil HCl 40 mg 10/30/20 09:00 11/18/20 08:09 Verapamil Hcl 40 Mg Tablet PO 40 mg TID JAMES Administration Protocol Zolpidem Tartrate 10 mg 11/15/20 20:37 11/17/20 20:20 Zolpidem Tartrate 5 Mg Tablet PO 10 mg BEDTIME PRN Administration Insomnia Allergies Allergies Allergy/AdvReac Type Severity Reaction Status Date / Time trazodone [TRAZODONE] Allergy Severe FACIAL Verified 04/07/20 09:20 SWELLING, swelling cat dander [CATS] Allergy Intermediate FACIAL Verified 04/07/20 09:20 ITCHING doxepin [DOXEPIN] Allergy Intermediate WEIGHT Verified 04/07/20 09:20 GAIN/LEG SWELLING Iodinated Contrast Media Allergy Intermediate ITCHING Verified 04/07/20 09:20 [IV DYE, IODINE CONTAINING CONTRAST ] nitroglycerin [NITROGLYCERIN] Allergy Unknown UNKNOWN Verified 04/07/20 09:20 tramadol [TRAMADOL] Allergy Unknown UNKNOWN, Verified 04/07/20 09:20 dry mouth ibuprofen [From MOTRIN] AdvReac Intermediate GI UPSET Verified 04/07/20 09:20 quetiapine [From SEROQUEL] AdvReac Intermediate FACIAL Verified 04/07/20 09:20 SWELLING aspirin [ASPIRIN] AdvReac Mild Stomach Verified 04/07/20 09:20 Upset Ibuprofen Allergy Unknown stomach Uncoded 04/07/20 09:20 ache IV contrast Allergy Unknown Unknown Uncoded 04/07/20 09:20 Motrin Allergy Unknown stomach Uncoded 04/07/20 09:20 pain Assessment & Plan Assessment & Plan (1) Schizoaffective disorder: Qualifiers: Schizoaffective disorder type: depressive Qualified Code(s): F25.1 - Schizoaffective disorder, depressive type Status: Acute Code(s): F25.9 - Schizoaffective disorder, unspecified Assessment and Plan: Discontinue cyclobenzaprine and start baclofen 10 mg t.i.d. (2) Suicidal ideation: Status: Acute Code(s): R45.851 - Suicidal ideations Assessment and Plan: Denies active self-harm monitor response to milieu and treatment (3) Opioid use disorder: Status: Acute Code(s): F11.99 - Opioid use, unspecified with unspecified opioid-induced disorder Assessment and Plan: Monitor for detox encourage [facility] referral. Pt agrees and would like to admit to [facility] (4) Alcohol use disorder: Status: Acute Assessment and Plan: Monitor for detox consider [facility] referral. Pt agrees and would like to admit to [facility]. Reason for contiued inpatient stay Substantial Risk for: other
[2020-11-18 14:39] VITALS: BP 119/73; PULSE 79
[2020-11-18 18:00] VITALS: BP 128/71; PULSE 92; TEMP 36.8
[2020-11-18] MEDS: Mirtazapine 15 MG TABLET 45 MG PO (20:34)
[2020-11-18 20:35] VITALS: BP 128/71; PULSE 92
[2020-11-18] MEDS: cloNIDine HCL 0.1 MG TABLET 0.3 MG PO (20:35)
[2020-11-18] MEDS: Zolpidem Tartrate 5 MG TABLET 10 MG PO (20:37)
[2020-11-18] MEDS: fluPHENAZine HCl 5 MG TABLET PO (20:37)
[2020-11-18] MEDS: Amitriptyline HCl 50 MG TABLET PO (20:38)
[2020-11-18] MEDS: Melatonin 3 MG TABLET PO (20:38)
[2020-11-19] MEDS: Acetaminophen 325 MG TABLET 650 MG PO (05:54)
[2020-11-19 06:00] VITALS: BP 126/69; PULSE 72; RESP 16; TEMP 36.1; O2SAT 99
[2020-11-19] MEDS: Sucralfate 1 GM TABLET PO ×2 (08:35→13:55)
[2020-11-19] MEDS: Benztropine Mesylate 1 MG TABLET PO (09:32)
[2020-11-19] MEDS: clonazePAM 1 MG TABLET PO (09:32)
[2020-11-19] MEDS: Baclofen 10 MG TABLET PO ×2 (09:32→13:56)
[2020-11-19 09:33] VITALS: BP 126/69; PULSE 72
[2020-11-19] MEDS: atenoloL 25 MG TABLET PO (09:33)
[2020-11-19] MEDS: ARIPiprazole 5 MG TABLET PO (09:33)
[2020-11-19 09:34] VITALS: BP 126/69; PULSE 72
[2020-11-19] MEDS: VerapamiL HCL 40 MG TABLET PO ×2 (09:34→13:54)
[2020-11-19] MEDS: Omeprazole 20 MG CAPSULE.DR PO (09:35)
[2020-11-19] MEDS: Fluticasone Propionate Nasal 16 GM SPRAY 2 SPRAY NOSTRIL-B (09:35)
[2020-11-19] MEDS: Tamsulosin HCL 0.4 MG CAPSULE PO (09:35)
--- NOTE | 2020-11-19 11:16 | PM.PSYDC ---
DS: Providers Provider Date of Service: 11/19/20 Date of admission: 11/01/20 15:09 Date of discharge: 11/19/20 Primary care physician: Patrick Rodrigues Admitting clinician: Luis Enrique Vidales Attending physician on admission: Luis Enrique Vidales Attending physician on discharge: Luis Enrique Vidales Discharging clinician: Rajwinder Calabrese DS: Diagnosis Discharge Diagnosis (1) Schizoaffective disorder: Status: Acute (2) Suicidal ideation: Status: Resolved (3) Opioid use disorder: Status: Acute (4) Alcohol use disorder: Status: Acute DS: Medications Discharge Medications Home Medications: Previous Rx's Medication Instructions Recorded amitriptyline 50 mg tablet 50 mg PO BEDTIME #7 tab 11/19/20 aripiprazole 5 mg tablet (Abilify) 5 mg PO DAILY #7 tab 11/19/20 atenolol 25 mg tablet 25 mg PO DAILY #7 tab 11/19/20 baclofen 10 mg tablet 10 mg PO TID #21 tab 11/19/20 benztropine 1 mg tablet 1 mg PO BID #14 tab 11/19/20 clonazepam 1 mg tablet 1 tab PO BID #14 tab 11/19/20 fluphenazine HCl 5 mg tablet 5 mg PO BEDTIME #7 tab 11/19/20 fluticasone propionate 50 2 spray INTRANASAL DAILY #1 g 11/19/20 mcg/actuation nasal spray,suspension lidocaine 4 % topical patch 1 patch TRANSDERMAL DAILY #7 ea 11/19/20 (Lidocaine Pain Relief) melatonin 3 mg tablet 3 mg PO BEDTIME #7 tab 11/19/20 mirtazapine 15 mg tablet 45 mg PO BEDTIME #7 tab 11/19/20 naloxone 4 mg/actuation nasal 4 mg INTRANASAL Q2M PRN #2 ea 11/19/20 spray (Narcan) nicotine (polacrilex) 2 mg gum 2 mg BUCCAL Q2H PRN #30 ea 11/19/20 omeprazole 20 mg capsule,delayed 20 mg PO DAILY #30 cap 11/19/20 release sucralfate 1 gram tablet 1 g PO QIDACHS #120 tab 11/19/20 tamsulosin 0.4 mg capsule 1 cap PO DAILY #7 cap 11/19/20 verapamil 40 mg tablet 40 mg PO TID #21 tab 11/19/20 zolpidem 10 mg tablet (Ambien) 10 mg PO BEDTIME PRN 30 Days #7 tab 11/19/20 Mental Status Exam Mental Status Exam Patient Appearance: Appropriate Patient Orientation: Person, Place, Time and Situation Level of Consciousness: Alert Patient Behavior: Appropriate and Talkative Mood Description: Calm Affect Description: Calm Patient Cognition Impaired: No Ability to Follow Directions: Good Speech Pattern: Spontaneous Speech Memory Description: Intact Hallucinations: Auditory (once in a while, pt reports perspective on these, aware they are symptoms, not reality he states.) Delusions: Not Present Thought Process: Intact Thought Content: positive for Intact, positive for Circumstantial and positive for Suicidal Ideation (denies SI plan or intent) Judgement: Good DS: Summary Hospital Course Hospital Course: Jerson is a 50 yo male with a history of schizoaffective disorder, depressed type, alcohol and opiate use disorders. He presented reporting auditory perceptual alterations telling him to kill himself. He reported hearing a womans voice as well as visual perceptual alterations of monsters and snakes. He reported a recent admission to [facility] in October 2020 and a plan to transition into a [facility] facility, however he left, returned to the streets and stopped medications. Pt signed into the hospital on a conditional voluntary. Medications were re-established, Abilfy was initiated and titrated, along with Prolixin which pt reported was helpful to extinguish voices. Pt reported sleeping difficulties, and as a result, Mirtazapine was initiated and titrated with reported improvement in sleep quality and quantity. Skilled Nursing placement was arranged and pt accepted this plan, although he did verbalize preference to live in hospital on an extended basis. Time spent discussing smoking cessation with patient: 3 to 10 minutes Status at Discharge Cognitive/behavioral status at discharge: Alert, non-suicidal, non-psychotic, mood is stable. Functional status at discharge: independent ambulation Overall status at discharge: patient is back to baseline Time Spent with Patient Time attestation: Total time spent providing and/or coordinating discharge services: 35 Time spent: Greater than 30 minutes Discharge Plan Discharge Anticipated Discharge Date/Time: 11/19/20 12:00 Patient Disposition: Skilled Nursing Discharge Diagnosis: Schizoaffective Disorder, Depressed Type Alcohol Use Disorder Opiate Use Disorder Referrals: [facility] [Other] - 11/26/20 1:15 pm ( Appointment with Therapist. Per behavioral health network (N) Psychiatry Appointment will be scheduled following meeting with therapist. ) [facility] [Other] - 11/19/20 5:00 am (Admittance hours for prison is 5:00 pm Meals daily 8-9 Breakfast, Lunch 12-1 pm, and Dinner 4:30-5:30 pm) Patrick Ly MD [Physician] - 12/03/20 2:00 pm (in office) Discharge Medications: New verapamil 40 mg Tablet 40 mg PO TID Qty: 21 RF: 0 nicotine (polacrilex) 2 mg Gum 2 mg buccal Q2H PRN (Reason: Nicotine Cravings) Qty: 30 RF: 4 atenolol 25 mg Tablet 25 mg PO DAILY Qty: 7 RF: 0 baclofen 10 mg Tablet 10 mg PO TID Qty: 21 RF: 4 mirtazapine 15 mg Tablet 45 mg PO BEDTIME Qty: 7 RF: 0 lidocaine [Lidocaine Pain Relief] 4 % Adhesive Patch,Medicated 1 patch transdermal DAILY Qty: 7 RF: 0 sucralfate 1 gram Tablet 1 g PO QIDACHS Qty: 120 RF: 0 melatonin 3 mg Tablet 3 mg PO BEDTIME Qty: 7 RF: 0 amitriptyline 50 mg Tablet 50 mg PO BEDTIME Qty: 7 RF: 4 benztropine 1 mg Tablet 1 mg PO BID Qty: 14 RF: 0 omeprazole 20 mg Capsule,Delayed Release(Dr/Ec) 20 mg PO DAILY Qty: 30 RF: 0 fluticasone propionate 50 mcg/actuation [place],Suspension 2 spray intranasal DAILY Qty: 1 RF: 4 fluphenazine HCl 5 mg Tablet 5 mg PO BEDTIME Qty: 7 RF: 4 aripiprazole [Abilify] 5 mg Tablet 5 mg PO DAILY Qty: 7 RF: 4 Narcan 4 mg/actuation spray,non-aerosol 4 mg intranasal Q2M PRN (Reason: opioid overdose) Qty: 2 RF: 0 zolpidem [Ambien] 10 mg tablet 10 mg PO BEDTIME PRN (Reason: insomnia) Qty: 7 RF: 4 clonazepam [Klonopin] 1 mg tablet 1 mg PO BID Qty: 14 RF: 4 Continued clonazepam 1 mg tablet 1 tab PO BID Qty: 14 RF: 4 tamsulosin 0.4 mg capsule 1 cap PO DAILY Qty: 7 RF: 4 zolpidem [Ambien] 10 mg Tablet 10 mg PO BEDTIME PRN (Reason: Sleep) 30 Days Qty: 7 RF: 4 Discontinued sucralfate 1 gram tablet 1 tab PO QID RF: 0 verapamil 40 mg Tablet 40 mg PO TID 30 Days Qty: 90 RF: 0 atenolol 25 mg Tablet 25 mg PO DAILY 30 Days Qty: 30 RF: 0 fluticasone propionate 50 mcg/actuation [place],Suspension 2 spray intranasal DAILY Qty: 0 RF: 0 chlorpromazine 50 mg tablet 1 tab PO QID PRN (Reason: psychosis) RF: 0 clonidine HCl 0.3 mg tablet 1 tab PO BEDTIME RF: 0 methocarbamol 500 mg tablet 1 tab PO QID RF: 0 mirtazapine 45 mg tablet 1 tab PO BEDTIME RF: 0 omeprazole 20 mg capsule,delayed release(DR/EC) 1 cap PO DAILY RF: 0 Discharge Orders: Discharge Order (Routine); Ordered 11/19/20 Ordered By: Rajwinder Calabrese Diet: advance to usual diet Activity on Discharge: As tolerated Stand Alone Forms: Patient Portal Discharge page, Community Support Care Plan Goals: Mood Stabilization Sobriety Health Concerns: Schizoaffective Disorder-Depressed Type Opiate Use Disorder Alcohol Use Disorder GERD BPH Plan of Treatment: Take medications as directed. Follow up with scheduled appointments Follow up with treatment recommendations when seen by [facility]. We have discussed scheduling a sleep study for your insomnia. Your insurance ([facility]) requires you to meet with your primary care team to get a referral. [facility] can help with this. When ready to schedule can [phone] Ext [phone] and they will schedule a sleep study with you. Assessment: Pt reports he is non-suicidal. He has no sx of psychosis. He does report feeling anxious about this next step of treatment and prefers to live in hospital, yet knows this is not an option. He reports that perceptual alterations are in good control with Prolixin. He requests that all prescriptions be sent to [facility]. Patient Instructions: Clonidine (By mouth), Amitriptyline (By mouth), Clonazepam (By mouth), Baclofen (By mouth), Benztropine Mesylate (By mouth), Fluphenazine Hydrochloride (By mouth), Zolpidem (By mouth), Aripiprazole (By mouth), Melatonin (By mouth) Discharge Date/Time: 11/19/20 17:45
[2020-11-19 13:54] VITALS: BP 126/69; PULSE 72
[2020-11-19 16:17] LABS: Influenza A PCR NEGATIVE (Negative); Influenza B PCR NEGATIVE (Negative); Resp Syncy Virus RNA Qual PCR NEGATIVE (Negative); SARS COV2 PCR INHOUSE NEGATIVE (Negative)
== END 2020-11-19 17:45 | disposition home or self-care (01) | DRG 750 ==
LOC: HO.ED 10-31 19:17 → HO.PM5 11-01 15:19
PROVIDERS: Physician Assistant; Social Worker; Admitting Provider Psychiatry & Neurology Psychiatry; Emergency Provider Student in an Organized Health Care Education/Training Program; Visit Provider Clinical Nurse Specialist Psychiatric/Mental Health, Adult
DX: F25.1 Schizoaffective disorder, depressive type (principal); R45.851 Suicidal ideations; Z59.0 Homelessness; F17.210 Nicotine dependence, cigarettes, uncomplicated; Z71.6 Tobacco abuse counseling; Z20.822 Contact with and (suspected) exposure to COVID-19; Z88.5 Allergy status to narcotic agent; Z88.6 Allergy status to analgesic agent; Z79.51 Long term (current) use of inhaled steroids; Z79.899 Other long term (current) drug therapy
CPT/HCPCS: 0241U; 36415; 80048; 80061; 80307; 82077; 82607; 82746; 82947; 83036; 84443; 85025; 87635; 93005; 99285

== ENCOUNTER → 2021-01-30 09:44 | Outpatient (BNVA) | payer MEDICAID, SELFPAY | PROVIDERS: PCP Internal Medicine; Visit Provider Urology | DX: N52.9 Male erectile dysfunction, unspecified (principal) | CPT/HCPCS: 51798; 99212 ==

== ENCOUNTER 2021-02-18 08:59 | Outpatient (REF) | payer MEDICAID, SELFPAY ==
--- NOTE | ~2021-02-18 | CT_ITS ---
EXAMINATION: CT HEAD WITHOUT CONTRAST CLINICAL INFORMATION: Headache, dizziness and giddiness COMPARISON: Previous head CT scans most recent August 2020 TECHNIQUE: Contiguous axial imaging was performed from the skull base to vertex without intravenous administration of contrast. This CT examination was performed using dose optimization techniques as appropriate, variously including the following: *Automated exposure control *Adjustment of mA and/or kV according to patient size (this includes techniques or standardized protocols for targeted exams where dose is matched to indication/reason for exam; i.e. extremities or head) *Use of iterative reconstruction technique DLP: 742 mGy-cm FINDINGS: There is no evidence of an extra-axial collection. There is no evidence of intra-axial or extra-axial hemorrhage. The ventricles and extra-axial CSF spaces are appropriate. There is nonspecific periventricular white matter disease. No mass, mass effect or infarct is seen. No fracture or bone lesion is seen. There is minimal inflammatory change in the left frontal sinus. The visualized paranasal sinuses, mastoid air cells and middle ears are otherwise clear. CT/CT head/brain wo con IMPRESSION: No acute findings. Mild nonspecific periventricular white matter exams.
== END 2021-02-18 09:00 | disposition home or self-care (01) ==
LOC: HO.CT 08:59
PROVIDERS: PCP Nurse Practitioner Primary Care; Visit Provider Nurse Practitioner Primary Care
DX: R42 Dizziness and giddiness (principal); R51.9 Headache, unspecified
CPT/HCPCS: 70450

== ENCOUNTER 2021-03-21 10:22 | Emergency (ER) | payer MEDICAID, SELFPAY ==
[2021-03-21 10:25] VITALS: BP 147/89; PULSE 85; RESP 22; TEMP 36.8; O2SAT 94; BMI 29.1
--- NOTE | 2021-03-21 11:35 | ED_ITS ---
HPI - Male Genitourinary General Chief complaint: Urogenital-Male Stated complaint: unable to urinate Time Seen by Provider: 03/21/21 11:27 Source: patient Mode of arrival: ambulatory Limitations: no limitations History of Present Illness HPI Narrative: 51-year-old male here with reports of difficulty urinating with the last urination last night. Associated with some abdominal discomfort and low back pain. Prior to this he denied any frequency, urgency, hematuria or dysuria. No nausea, vomiting, fevers, chills. Of note, the patient is well known to [facility] with a longstanding history of opiate use disorder, alcohol use disorder Related Data Previous Rx's Medication Instructions Recorded amitriptyline 50 mg tablet 50 mg PO BEDTIME #7 tab 11/19/20 aripiprazole 5 mg tablet (Abilify) 5 mg PO DAILY #7 tab 11/19/20 atenolol 25 mg tablet 25 mg PO DAILY #7 tab 11/19/20 baclofen 10 mg tablet 10 mg PO TID #21 tab 11/19/20 benztropine 1 mg tablet 1 mg PO BID #14 tab 11/19/20 clonazepam 1 mg tablet 1 tab PO BID #14 tab 11/19/20 clonazepam 1 mg tablet (Klonopin) 1 mg PO BID #14 tab 11/19/20 fluphenazine HCl 5 mg tablet 5 mg PO BEDTIME #7 tab 11/19/20 fluticasone propionate 50 2 spray INTRANASAL DAILY #1 g 11/19/20 mcg/actuation nasal spray,suspension lidocaine 4 % topical patch 1 patch TRANSDERMAL DAILY #7 ea 11/19/20 (Lidocaine Pain Relief) melatonin 3 mg tablet 3 mg PO BEDTIME #7 tab 11/19/20 mirtazapine 15 mg tablet 45 mg PO BEDTIME #7 tab 11/19/20 naloxone 4 mg/actuation nasal 4 mg INTRANASAL Q2M PRN #2 ea 11/19/20 spray (Narcan) nicotine (polacrilex) 2 mg gum 2 mg BUCCAL Q2H PRN #30 ea 11/19/20 sucralfate 1 gram tablet 1 g PO QIDACHS #120 tab 11/19/20 tamsulosin 0.4 mg capsule 1 cap PO DAILY #7 cap 11/19/20 verapamil 40 mg tablet 40 mg PO TID #21 tab 11/19/20 zolpidem 10 mg tablet (Ambien) 10 mg PO BEDTIME PRN #7 tab 11/19/20 zolpidem 10 mg tablet (Ambien) 10 mg PO BEDTIME PRN 30 Days #7 tab 11/19/20 sildenafil 100 mg tablet 100 mg PO DAILY PRN 30 Days #30 tab 01/30/21 omeprazole 20 mg capsule,delayed 20 mg PO DAILY #30 cap 02/19/21 release ferrous sulfate 300 mg (60 mg 300 mg (5 mL) PO DAILY 30 Days 03/12/21 iron)/5 mL oral liquid #150 ml Allergies Allergy/AdvReac Type Severity Reaction Status Date / Time trazodone [TRAZODONE] Allergy Severe FACIAL Verified 01/30/21 10:12 SWELLING, swelling cat dander [CATS] Allergy Intermediate FACIAL Verified 01/30/21 10:12 ITCHING doxepin [DOXEPIN] Allergy Intermediate WEIGHT Verified 01/30/21 10:12 GAIN/LEG SWELLING Iodinated Contrast Media Allergy Intermediate ITCHING Verified 01/30/21 10:12 [IV DYE, IODINE CONTAINING CONTRAST ] nitroglycerin [NITROGLYCERIN] Allergy Unknown UNKNOWN Verified 01/30/21 10:12 tramadol [TRAMADOL] Allergy Unknown UNKNOWN, Verified 01/30/21 10:12 dry mouth ibuprofen [From MOTRIN] AdvReac Intermediate GI UPSET Verified 01/30/21 10:12 quetiapine [From SEROQUEL] AdvReac Intermediate FACIAL Verified 01/30/21 10:12 SWELLING aspirin [ASPIRIN] AdvReac Mild Stomach Verified 01/30/21 10:12 Upset Ibuprofen Allergy Unknown stomach Uncoded 01/30/21 10:12 ache IV contrast Allergy Unknown Unknown Uncoded 01/30/21 10:12 Motrin Allergy Unknown stomach Uncoded 01/30/21 10:12 pain Review of Systems Review of Systems: Yes all other systems are reviewed and are negative Constitutional: Constitutional: Reports no additional constitutional complaints, Denies body ache(s), Denies chills, Denies fever(s), Denies headache(s) and Denies weakness Eyes: Eyes: Reports no additional eye complaints and Denies change in vision ENT: Reports system reviewed and no additional complaints, except as documented, Denies dizziness, Denies headache(s), Denies nasal congestion, Denies nasal discharge and Denies neck pain Cardiovascular: Cardiovascular: Reports no additional cardiovascular complaints, Denies chest pain, Denies leg edema and Denies dyspnea Respiratory: Respiratory: Reports no additional respiratory complaints, Denies cough and Denies dyspnea Gastrointestinal: Gastrointestinal: Reports no additional gastrointestinal complaints, Denies abdominal pain, Denies diarrhea, Denies nausea and Denies vomiting Genitourinary: Genitourinary: Reports difficulty urinating, Denies dysuria, Denies flank pain, Denies testicular pain, Denies urinary frequency and Denies urinary incontinence Musculoskeletal: Musculoskeletal: Reports no additional musculoskeletal complaints, Reports back pain, Denies arthralgias, Denies joint swelling, Denies neck pain, Denies numbness and Denies tingling Integumentary/Breasts: Skin/Breast: Reports system reviewed and no additional complaints, except as docu and Denies rash Neurologic: Reports system reviewed and no additional complaints, except as documented, Denies Abnormal speech present, Denies dizziness, Denies headache(s), Denies numbness, Denies tingling and Denies weakness PMFSH Past Medical History Attestation statement: The following information was validated with the patient. Source: old records reviewed and nursing notes reviewed Medical History Alcohol dependence Anxiety Chest pain Derangement of symphysis pubis Dysphagia GERD (gastroesophageal reflux disease) Major depressive disorder, recurrent severe without psychotic features Opioid abuse Weight loss Surgical History H/O umbilical hernia repair History of colonoscopy History of cystoscopy Family History Family History Father HTN (hypertension) Diabetes Mother HTN (hypertension) Stroke Alzheimer disease Heart disease Social History Social History Household Members: None Housing: Homeless Do you presently have visiting nurse or other home services: No Alcohol intake: current Alcohol intake frequency: 3 or more drinks per day Patient Tobacco Use Status: Current everyday Tobacco user Tobacco use type: Cigarette Cigarette Packs Per Day: 1 Cigarettes Per Day: 20.0 Years Smoked: 9 Second Hand Smoke Exposure: Yes Substance Use Type: Crack/Cocaine Advance Directives: Yes Advance Directives on File: Yes Advance Directives Date on File: 02/24/20 service: No Current occupational status: disabled Sexual orientation: Straight/Heterosexual Physical Exam Vital Signs: Vital Signs: Last Vital Signs Temp 98.3 F 03/21/21 10:25 Pulse 85 03/21/21 10:25 Resp 22 H 03/21/21 10:25 BP 147/89 H 03/21/21 10:25 Pulse Ox 94 03/21/21 10:25 BMI result Body Mass Index 29.1 Const: General: cooperative, healthy appearing, comfortable and no acute distress Orientation/consciousness: patient oriented x3 Limitations: no limitations HENMT: Head: Yes normal to inspection Ears: hearing grossly normal bilaterally General nose exam: Normal external nose present Face and sinus: Yes normal facial exam Mouth: Normal oral and palatal mucosa present Throat: Yes posterior oropharynx normal Eyes: General: appearance normal, both eyes and all related structures Pupils: Equal, round and reactive pupils present Neck: Neck: Yes normal visual inspection Chest: Chest palpation & inspection: normal inspection of the chest Resp: Effort & Inspection: normal respiratory effort Auscultation: clear to auscultation bilaterally Cardio: Rate: regular rate Rhythm: regular rhythm Peripheral pulses: Peripheral pulses 2+ throughout GI: Other: Bladder is distended Inspection: Yes normal to inspection Palpation (GI): Soft to palpation and nontender Auscultation: normal bowel sounds Back/Spine/Pelvis: Thoracic/Lumbar Spine: thoracic and lumbar spine normal to inspection Skin: General skin exam: no rashes or lesions noted Neuro: General: patient oriented x3, no focal motor deficits and normal sensation to monofilament Cranial nerves: Yes Equal, round and reactive pupils present Cognition (Neuro): normal cognition Speech: No Abnormal speech present Gait exam (Neuro): Normal gait present Motor exam (neuro): 5/5 motor strength present throughout Extrem: General: Yes normal to inspection Course Course Course Narrative: 51-year-old male here with reports of difficulty urinating since last evening. Complaining of his abdomen feeling full as well as some low back pain. Will check bladder scan 1310-bladder scan 118ml. Patient eloped from the emergency department MDM - Male Genitourinary Medical Records Attestation: I reviewed the patient's medical records. Lab Data Attestation: I reviewed the patient's lab results. Discharge Plan Discharge Clinical Impression: Acute retention of urine Patient Disposition: Elopement Prescriptions: No Action omeprazole 20 mg capsule,delayed release(DR/EC) 20 mg PO DAILY Qty: 30 RF: 3 ferrous sulfate 300 mg (60 mg iron)/5 mL liquid 300 mg PO DAILY 30 Days Qty: 150 RF: 3 verapamil 40 mg Tablet 40 mg PO TID Qty: 21 RF: 0 nicotine (polacrilex) 2 mg Gum 2 mg buccal Q2H PRN (Reason: Nicotine Cravings) Qty: 30 RF: 4 atenolol 25 mg Tablet 25 mg PO DAILY Qty: 7 RF: 0 baclofen 10 mg Tablet 10 mg PO TID Qty: 21 RF: 4 mirtazapine 15 mg Tablet 45 mg PO BEDTIME Qty: 7 RF: 0 lidocaine [Lidocaine Pain Relief] 4 % Adhesive Patch,Medicated 1 patch transdermal DAILY Qty: 7 RF: 0 sucralfate 1 gram Tablet 1 g PO QIDACHS Qty: 120 RF: 0 melatonin 3 mg Tablet 3 mg PO BEDTIME Qty: 7 RF: 0 amitriptyline 50 mg Tablet 50 mg PO BEDTIME Qty: 7 RF: 4 benztropine 1 mg Tablet 1 mg PO BID Qty: 14 RF: 0 fluticasone propionate 50 mcg/actuation [place],Suspension 2 spray intranasal DAILY Qty: 1 RF: 4 fluphenazine HCl 5 mg Tablet 5 mg PO BEDTIME Qty: 7 RF: 4 aripiprazole [Abilify] 5 mg Tablet 5 mg PO DAILY Qty: 7 RF: 4 clonazepam 1 mg tablet 1 tab PO BID Qty: 14 RF: 4 tamsulosin 0.4 mg capsule 1 cap PO DAILY Qty: 7 RF: 4 zolpidem [Ambien] 10 mg Tablet 10 mg PO BEDTIME PRN (Reason: Sleep) 30 Days Qty: 7 RF: 4 Narcan 4 mg/actuation spray,non-aerosol 4 mg intranasal Q2M PRN (Reason: opioid overdose) Qty: 2 RF: 0 zolpidem [Ambien] 10 mg tablet 10 mg PO BEDTIME PRN (Reason: insomnia) Qty: 7 RF: 4 clonazepam [Klonopin] 1 mg tablet 1 mg PO BID Qty: 14 RF: 4 sildenafil 100 mg tablet 100 mg PO DAILY PRN (Reason: sexual activity) 30 Days Qty: 30 RF: 1 Interventions: ED Discharge Assessment Last Done: 03/21/21 13:39 Discharge Date/Time: 03/21/21 13:40
== END 2021-03-21 13:40 | disposition left against medical advice (07) ==
PROVIDERS: Emergency Provider Emergency Medicine; PCP Internal Medicine
DX: R33.9 Retention of urine, unspecified (principal); M54.50 Low back pain, unspecified; F10.20 Alcohol dependence, uncomplicated; F11.10 Opioid abuse, uncomplicated; F17.200 Nicotine dependence, unspecified, uncomplicated
CPT/HCPCS: 51798; 99283

== ENCOUNTER → 2021-04-15 08:32 | Outpatient (BNVA) | payer MEDICAID, SELFPAY | PROVIDERS: PCP Internal Medicine; Referring Provider Internal Medicine; Visit Provider Internal Medicine Gastroenterology | DX: R13.10 Dysphagia, unspecified (principal); K21.9 Gastro-esophageal reflux disease without esophagitis; R14.0 Abdominal distension (gaseous); R07.9 Chest pain, unspecified; D64.9 Anemia, unspecified | CPT/HCPCS: 99212 ==

== ENCOUNTER 2021-04-16 08:46 | Outpatient (REF) | payer MEDICAID, SELFPAY ==
[2021-04-16 09:07] LABS: MANUAL DIFF FLAG NO
[2021-04-16 09:37] LABS: Basophils Percent Auto 0.4 % (0-2); Eosinophils Absolute Auto 0.2 X10*3/uL (0.0-0.4); Hemoglobin 12.5 g/dl (14.0-18.0); Imm Gran Abs Auto 0.02 X10*3/uL (0.00-0.03); Imm Gran Pct Auto 0.2 % (0.0-0.4); Lymphocytes Absolute Auto 1.8 X10*3/uL (1.2-4.9); Mean Corpuscular HGB Conc 32.1 g/dl (31.0-36.0); Mean Corpuscular Hemoglobin 28.1 pg (27.0-33.0); Mean Corpuscular Volume 87.6 fL (80.0-98.0); Mean Platelet Volume 9.6 fL (9.4-12.4); Monocytes Absolute Auto 0.4 X10*3/uL (0.1-1.2); Monocytes Percent Auto 4.8 % (2-11); Neutrophils Absolute Auto 5.9 x10*3/uL (2.0-8.3); Neutrophils Percent Auto 70.6 % (45-73); Platelet Count 216 X10*3/uL (160-400); Red Blood Count 4.45 X10*6/uL (4.60-5.80); Red Cell Distribution Width 14.2 % (11.0-16.0); White Blood Count 8.4 X10*3/uL (4.8-10.8)
[2021-04-16 10:25] LABS: Ferritin 47 ng/mL (20-250); Vitamin D 25-OH Total 22.1 ng/mL (>30)
[2021-04-16 11:13] LABS: Vitamin B12 570 pg/mL (200-900)
== END 2021-04-16 08:47 | disposition home or self-care (01) ==
LOC: HO.LAB 08:46
PROVIDERS: PCP Internal Medicine; Visit Provider Internal Medicine Gastroenterology
DX: D64.9 Anemia, unspecified (principal); K21.9 Gastro-esophageal reflux disease without esophagitis
CPT/HCPCS: 36415; 82306; 82607; 82728; 85025

== ENCOUNTER 2021-06-08 22:30 | Emergency (ER) | payer MEDICAID, SELFPAY ==
[2021-06-08 22:37] VITALS: BP 175/99; PULSE 107; RESP 20; TEMP 36.3; O2SAT 97; BMI 32.1
--- NOTE | 2021-06-08 22:41 | ECG_ITS ---
Test Reason : abd pain Blood Pressure : / mmHG Vent. Rate : 098 BPM Atrial Rate : 098 BPM P-R Int : 136 ms QRS Dur : 080 ms QT Int : 338 ms P-R-T Axes : 014 -11 016 degrees QTc Int : 431 ms Normal sinus rhythm Minimal voltage criteria for LVH, may be normal variant ( R in aVL ) Cannot rule out Anterior infarct , age undetermined Abnormal ECG When compared with ECG of 01-NOV-2020 10:49, Vent. rate has increased BY [address] no longer elevated in Anterolateral leads Nonspecific T wave abnormality now evident in Anterolateral leads Referred By: Hiram Long Electronically Signed By:Scottie Figueroa
[2021-06-08 22:49] LABS: MANUAL DIFF FLAG NO
[2021-06-08 22:52] LABS: Basophils Absolute Auto 0.1 X10*3/uL (0.0-0.2); Basophils Percent Auto 0.6 % (0-2); Eosinophils Absolute Auto 0.1 X10*3/uL (0.0-0.4); Eosinophils Percent Auto 0.8 % (0-4); Hematocrit 39.3 % (42.0-52.0); Hemoglobin 13.1 g/dl (14.0-18.0); Imm Gran Abs Auto 0.01 X10*3/uL (0.00-0.03); Imm Gran Pct Auto 0.1 % (0.0-0.4); Lymphocytes Absolute Auto 2.3 X10*3/uL (1.2-4.9); Mean Corpuscular HGB Conc 33.3 g/dl (31.0-36.0); Mean Corpuscular Hemoglobin 28.7 pg (27.0-33.0); Monocytes Absolute Auto 0.8 X10*3/uL (0.1-1.2); Monocytes Percent Auto 8.8 % (2-11); Neutrophils Absolute Auto 5.8 x10*3/uL (2.0-8.3); Neutrophils Percent Auto 64.7 % (45-73); Platelet Count 245 X10*3/uL (160-400); Red Blood Count 4.57 X10*6/uL (4.60-5.80); Red Cell Distribution Width 13.9 % (11.0-16.0)
[2021-06-08 22:58] LABS: INTERNATIONAL NORM RATIO 1.2 (0.9-1.1); Prothrombin Time 13.2 SEC (9.9-13.0)
[2021-06-08 23:00] LABS: Partial Thromboplastin Time 31.2 SEC (24.1-38.0)
[2021-06-08 23:01] LABS: D Dimer High Sensitivity < 150 NG/ML
[2021-06-08 23:10] LABS: Alanine Aminotransferase 20 U/L (0-40); Albumin Level 4.3 g/dL (3.5-5.0); Alkaline Phosphatase 79 U/L (39-117); Anion Gap 11 (12-20); Aspartate Amino Transferase 17 U/L (5-37); Bilirubin Total 0.7 mg/dL (0.0-1.0); Blood Urea Nitrogen 3 mg/dL (9-16); Calcium 9.7 mg/dL (8.4-10.2); Carbon Dioxide 28 mmol/L (22-29); Chloride 101 mmol/L (96-108); Creatinine Clr Calc Pharmacy 101.1; Estimated Glomerular Filt Rate > 60; Glucose Random 172 mg/dL (60-115); Lipase 32 U/L (8-78); Potassium 3.3 mmol/L (3.3-5.1); Sodium 137 mmol/L (135-145); Total Protein 7.6 g/dL (6.5-8.0)
[2021-06-08] MEDS: ondansetron HCL 4 MG/2 ML VIAL IVPUSH (23:10)
[2021-06-08] MEDS: 0.9 % Sodium Chloride 1,000 ML 999 ML IV (23:10)
[2021-06-08] MEDS: Ketorolac Tromethamine 15 MG/ML VIAL IVPUSH (23:10)
[2021-06-08 23:14] LABS: Troponin-I High Sensitivity < 3.5 ng/L (<3.5-35.0)
[2021-06-08 23:36] LABS: Ethanol < 10 mg/dL
[2021-06-08 23:46] VITALS: BP 140/87; PULSE 96; RESP 20; O2SAT 96
[2021-06-09] VITALS: BP 140/87; PULSE 99; RESP 20
[2021-06-09 00:16] LABS: Appearance Urine CLEAR; Color Urine YELLOW; Glucose Urine UA NEG (NEG); Leukocyte Esterase Urine 2+ (NEG); Nitrite Urine NEG (NEG); UACC Culture Trigger YES; Urine Blood TRACE (NEG); Urine Ketones NEG (NEG); Urine Protein NEG (NEG-TRACE)
[2021-06-09 00:23] LABS: Amorphous Sediment Urine 1+ /LPF; Bacteria Urine 1+ /LPF; Squamous Epithelial Cell Urine 2+ /LPF; WBC Clumps Urine NOTED
[2021-06-09 00:33] LABS: Amphetamine Screen Urine Not Detected (Not Detect); Barbiturates, Urine Not Detected (Not Detect); Benzodiazepines Screen Urine POSITIVE (Not Detect); Cannabinoid Screen Urine Not Detected (Not Detect); Cocaine Screen Urine POSITIVE (Not Detect); Fentanyl, urine Not Detected (Not Detect); Opiate Screen Urine Not Detected (Not Detect); Phencyclidine Screen Urine Not Detected (Not Detect)
--- NOTE | 2021-06-09 00:37 | ED.ABDPAIN ---
HPI - Abdominal Pain General Chief Complaint: Abdominal Pain Stated Complaint: CP/Abd pain Time Seen by Provider: 06/08/21 22:32 Source: patient Mode of arrival: EMS Limitations: no limitations History of Present Illness HPI narrative: 51-year-old male who presents emergency department for evaluation of abdominal pain and chest pain. The patient states that he has been having abdominal pain for 3 days. He states the pain is located diffusely throughout his abdomen. He describes it as a tightness. The pain is 8/10 at its worst. He states these had associated nausea and vomiting. He is also complaining of chest pain he states that he has a constant tightness in his chest. He points to his sternum. He states the pain came on gradually and got progressively worse and has been constant since onset. The pain does not change with movement or with breathing. The patient states the pain got worse so he called an ambulance was brought to the emergency department for evaluation. MD elicited complaint: abdominal pain Onset (ago): day(s) (3) Pain Consistency: constant Location: chest Pain scale (0-10): 9 Quality: other (Tightness) Radiation: none Migration to: no migration Exacerbating factors: nothing Relieving factors: nothing Associated symptoms: nausea, vomiting and other (Chest pain) Related Data Previous Rx's Medication Instructions Recorded amitriptyline 50 mg tablet 50 mg PO BEDTIME #7 tab 11/19/20 aripiprazole 5 mg tablet (Abilify) 5 mg PO DAILY #7 tab 11/19/20 atenolol 25 mg tablet 25 mg PO DAILY #7 tab 11/19/20 baclofen 10 mg tablet 10 mg PO TID #21 tab 11/19/20 benztropine 1 mg tablet 1 mg PO BID #14 tab 11/19/20 clonazepam 1 mg tablet 1 tab PO BID #14 tab 11/19/20 clonazepam 1 mg tablet (Klonopin) 1 mg PO BID #14 tab 11/19/20 fluphenazine HCl 5 mg tablet 5 mg PO BEDTIME #7 tab 11/19/20 fluticasone propionate 50 2 spray INTRANASAL DAILY #1 g 11/19/20 mcg/actuation nasal spray,suspension lidocaine 4 % topical patch 1 patch TRANSDERMAL DAILY #7 ea 11/19/20 (Lidocaine Pain Relief) melatonin 3 mg tablet 3 mg PO BEDTIME #7 tab 11/19/20 mirtazapine 15 mg tablet 45 mg PO BEDTIME #7 tab 11/19/20 naloxone 4 mg/actuation nasal 4 mg INTRANASAL Q2M PRN #2 ea 11/19/20 spray (Narcan) nicotine (polacrilex) 2 mg gum 2 mg BUCCAL Q2H PRN #30 ea 11/19/20 sucralfate 1 gram tablet 1 g PO QIDACHS #120 tab 11/19/20 tamsulosin 0.4 mg capsule 1 cap PO DAILY #7 cap 11/19/20 verapamil 40 mg tablet 40 mg PO TID #21 tab 11/19/20 zolpidem 10 mg tablet (Ambien) 10 mg PO BEDTIME PRN #7 tab 11/19/20 zolpidem 10 mg tablet (Ambien) 10 mg PO BEDTIME PRN 30 Days #7 tab 11/19/20 sildenafil 100 mg tablet 100 mg PO DAILY PRN 30 Days #30 tab 01/30/21 omeprazole 20 mg capsule,delayed 20 mg PO DAILY #30 cap 02/19/21 release ferrous sulfate 300 mg (60 mg 300 mg (5 mL) PO DAILY 30 Days 03/12/21 iron)/5 mL oral liquid #150 ml sennosides 8.6 mg-docusate sodium 2 tab-cap PO BEDTIME 30 Days #60 04/15/21 50 mg tablet (Senna with Docusate tab Sodium) cholecalciferol (vitamin D3) 50 50 mcg PO DAILY 90 Days #90 cap 04/26/21 mcg (2,000 unit) capsule simethicone 125 mg chewable tablet 125 mg PO BID-QID PRN 30 Days #90 05/02/21 (Gas Relief (simethicone)) tab sulfamethoxazole 800 1 tab PO BID 5 Days #10 tab 05/21/21 mg-trimethoprim 160 mg tablet (Bactrim DS) Allergies Allergy/AdvReac Type Severity Reaction Status Date / Time trazodone [TRAZODONE] Allergy Severe FACIAL Verified 04/15/21 08:33 SWELLING, swelling cat dander [CATS] Allergy Intermediate FACIAL Verified 04/15/21 08:33 ITCHING doxepin [DOXEPIN] Allergy Intermediate WEIGHT Verified 04/15/21 08:33 GAIN/LEG SWELLING Iodinated Contrast Media Allergy Intermediate ITCHING Verified 04/15/21 08:33 [IV DYE, IODINE CONTAINING CONTRAST ] nitroglycerin [NITROGLYCERIN] Allergy Unknown UNKNOWN Verified 04/15/21 08:33 tramadol [TRAMADOL] Allergy Unknown UNKNOWN, Verified 04/15/21 08:33 dry mouth ibuprofen [From MOTRIN] AdvReac Intermediate GI UPSET Verified 04/15/21 08:33 quetiapine [From SEROQUEL] AdvReac Intermediate FACIAL Verified 04/15/21 08:33 SWELLING aspirin [ASPIRIN] AdvReac Mild Stomach Verified 04/15/21 08:33 Upset Ibuprofen Allergy Unknown stomach Uncoded 01/30/21 10:12 ache IV contrast Allergy Unknown Unknown Uncoded 01/30/21 10:12 Motrin Allergy Unknown stomach Uncoded 01/30/21 10:12 pain Review of Systems Review of Systems Yes all other systems are reviewed and are negative [facility] Past Medical History [facility] Narrative: Social history: The patient states that he occasionally smokes cigarettes. He denied alcohol and drug use. Medical History Alcohol dependence Anxiety Chest pain Derangement of symphysis pubis Dysphagia GERD (gastroesophageal reflux disease) Major depressive disorder, recurrent severe without psychotic features Opioid abuse Weight loss Surgical History H/O umbilical hernia repair History of colonoscopy History of cystoscopy Family History Family History Father HTN (hypertension) Diabetes Mother HTN (hypertension) Stroke Alzheimer disease Heart disease Social History Social History Household Members: None Housing: Homeless Do you presently have visiting nurse or other home services: No Alcohol intake: current Alcohol intake frequency: 3 or more drinks per day Patient Tobacco Use Status: Current everyday Tobacco user Tobacco use type: Cigarette Cigarette Packs Per Day: 1 Cigarettes Per Day: 20.0 Years Smoked: 9 Second Hand Smoke Exposure: Yes Substance Use Type: Crack/Cocaine Advance Directives: Yes Advance Directives on File: Yes Advance Directives Date on File: 02/24/20 service: No Current occupational status: disabled Sexual orientation: Straight/Heterosexual Physical Exam ED Vital Signs: Vital Signs - 24 hr 06/08/21 22:37 06/08/21 23:46 06/09/21 00:00 Temperature 97.3 F Pulse Rate 107 H 96 99 Respiratory Rate 20 20 20 Blood Pressure 175/99 H 140/87 H 140/87 H Pulse Oximetry 97 96 BMI result Body Mass Index 32.1 Const General: cooperative and no acute distress Orientation/consciousness: oriented to person and oriented to place Limitations: no limitations HENMT Head: Yes normal to inspection, Yes normocephalic and Yes atraumatic Ears: external ears normal General nose exam: Normal external nose present Face and sinus: Yes normal facial exam Mouth: Normal oral and palatal mucosa present Throat: Yes posterior oropharynx normal Eyes General: appearance normal, both eyes and all related structures Pupils: Equal, round and reactive pupils present Neck Neck: Yes normal visual inspection, Yes no lymphadenopathy, Yes trachea midline and Yes supple Chest Chest palpation & inspection: normal inspection of the chest and tenderness sternum Resp Effort & Inspection: normal respiratory effort and able to speak in complete sentences Auscultation: clear to auscultation bilaterally Cardio Rate: regular rate Rhythm: regular rhythm Heart sounds: S1 normal heart sound present, S2 normal heart sound present and no murmurs GI Inspection: Yes normal to inspection Palpation (GI): Soft to palpation, Tenderness to palpation present (GI) (Diffuse) and no guarding Auscultation: normal bowel sounds General: Yes no CVA tenderness Back/Spine/Pelvis Back: no CVA tenderness Skin General skin exam: no rashes or lesions noted Neuro General: oriented to person and oriented to place Cranial nerves: Yes CN's II-XII intact bilaterally and Yes Equal, round and reactive pupils present Cognition (Neuro): normal cognition Motor exam (neuro): 5/5 motor strength present throughout Extrem General: Yes normal to inspection Psych Appearance: grossly normal Speech and movement: Normal speech and movement present Affect: normal affect Attitude: cooperative Thought process: Normal thought process present Thought content: Normal thought content present Course Course Course Narrative: 51-year-old male who presents emergency department for evaluation of chest pain abdominal pain which has been constant for 3 days. The patient's initial vital signs revealed elevated blood pressures of 175/99 and 140/87, tachycardia with a pulse of 107 otherwise unremarkable vital signs. Examination did reveal chest wall tenderness and diffuse abdominal tenderness. Laboratory evaluation was ordered. The patient was treated with Toradol 15 mg IV and Zofran 4 mg IV. He was also given normal saline IV x1 L. 0043: The patient is feeling significantly better after the above treatment. Laboratory evaluation revealed normal CBC. CMP revealed an elevated glucose of 172. Troponin was below detectable limits. Alcohol was below detectable limits. Urine drug screen was positive for benzos and for cocaine. Twelve EKG was unremarkable. At this time, I do not think the patient has had a myocardial infarction. The patient was advised to stop using cocaine. He was sent home with a anterior nasal Narcan rescue pack. He was given printed and verbal instructions discharged home. MDM - Abdominal Pain Lab Data Result diagrams: 06/08/21 21:40 06/08/21 21:40 Labs: Lab Results 06/08/21 06/08/21 06/08/21 Range/Units 21:40 21:40 21:40 WBC 9.0 (4.8-10.8) X10*3/uL RBC 4.57 L (4.60-5.80) X10*6/uL Hgb 13.1 L (14.0-18.0) g/dl Hct 39.3 L (42.0-52.0) % MCV 86.0 (80.0-98.0) fL MCH 28.7 (27.0-33.0) pg MCHC 33.3 (31.0-36.0) g/dl RDW 13.9 (11.0-16.0) % Plt Count 245 (160-400) X10*3/uL MPV 9.0 L (9.4-12.4) fL Immature Gran % (Auto) 0.1 (0.0-0.4) % Neut % (Auto) 64.7 (45-73) % Lymph % (Auto) 25.0 (20-40) % [place] % (Auto) 8.8 (2-11) % Eos % (Auto) 0.8 (0-4) % Baso % (Auto) 0.6 (0-2) % Lymph # (Auto) 2.3 (1.2-4.9) X10*3/uL [place] # (Auto) 0.8 (0.1-1.2) X10*3/uL Eos # (Auto) 0.1 (0.0-0.4) X10*3/uL Baso # (Auto) 0.1 (0.0-0.2) X10*3/uL Abs Immat Gran (auto) 0.01 (0.00-0.03) X10*3/uL Absolute Neuts (auto) 5.8 (2.0-8.3) x10*3/uL Absolute Nucleated RBC 0.000 (0.0-0.012) X10*3/uL Nucleated RBC % (auto) 0.0 (0.0-0.2) /100WBC PT 13.2 H (9.9-13.0) SEC INR 1.2 H (0.9-1.1) APTT 31.2 (24.1-38.0) SEC D-Dimer High Sensitivty < 150 NG/ML Sodium 137 (135-145) mmol/L Potassium 3.3 (3.3-5.1) mmol/L Chloride 101 (96-108) mmol/L Carbon Dioxide 28 (22-29) mmol/L Anion Gap 11 L (12-20) BUN 3 L (9-16) mg/dL Creatinine 0.86 (0.5-1.4) mg/dL Estim Creat Clear Calc 101.1 Estimated GFR > 60 Random Glucose 172 H D (60-115) mg/dL Calcium 9.7 D (8.4-10.2) mg/dL Total Bilirubin 0.7 (0.0-1.0) mg/dL AST 17 D (5-37) U/L ALT 20 (0-40) U/L Alkaline Phosphatase 79 (39-117) U/L Troponin I High Sens (<3.5-35.0) ng/L Total Protein 7.6 (6.5-8.0) g/dL Albumin 4.3 (3.5-5.0) g/dL Lipase 32 (8-78) U/L Urine Color Urine Appearance Urine pH (5.0-8.0) Ur Specific [place] (1.005-1.025) Urine Protein (NEG-TRACE) MG/DL Urine Glucose (UA) (NEG) MG/DL Urine Ketones (NEG) MG/DL Urine Blood (NEG) Urine Nitrite (NEG) Ur Leukocyte Esterase (NEG) Urine RBC (0) /HPF Urine WBC (0-4) /HPF Urine WBC Clumps Ur Squamous Epith Cells /LPF Amorphous Sediment /LPF Urine Bacteria /LPF Urine Opiates Screen (Not Detect) Urine Fentanyl Screen (Not Detect) Ur Barbiturates Screen (Not Detect) Ur Phencyclidine Scrn (Not Detect) Ur Amphetamines Screen (Not Detect) U Benzodiazepines Scrn (Not Detect) Urine Cocaine Screen (Not Detect) U Marijuana (THC) Screen (Not Detect) Ethyl Alcohol mg/dL 06/08/21 06/08/21 06/09/21 Range/Units 21:40 21:40 00:09 WBC (4.8-10.8) X10*3/uL RBC (4.60-5.80) X10*6/uL Hgb (14.0-18.0) g/dl Hct (42.0-52.0) % MCV (80.0-98.0) fL MCH (27.0-33.0) pg MCHC (31.0-36.0) g/dl RDW (11.0-16.0) % Plt Count (160-400) X10*3/uL MPV (9.4-12.4) fL Immature Gran % (Auto) (0.0-0.4) % Neut % (Auto) (45-73) % Lymph % (Auto) (20-40) % [place] % (Auto) (2-11) % Eos % (Auto) (0-4) % Baso % (Auto) (0-2) % Lymph # (Auto) (1.2-4.9) X10*3/uL [place] # (Auto) (0.1-1.2) X10*3/uL Eos # (Auto) (0.0-0.4) X10*3/uL Baso # (Auto) (0.0-0.2) X10*3/uL Abs Immat Gran (auto) (0.00-0.03) X10*3/uL Absolute Neuts (auto) (2.0-8.3) x10*3/uL Absolute Nucleated RBC (0.0-0.012) X10*3/uL Nucleated RBC % (auto) (0.0-0.2) /100WBC PT (9.9-13.0) SEC INR (0.9-1.1) APTT (24.1-38.0) SEC D-Dimer High Sensitivty NG/ML Sodium (135-145) mmol/L Potassium (3.3-5.1) mmol/L Chloride (96-108) mmol/L Carbon Dioxide (22-29) mmol/L Anion Gap (12-20) BUN (9-16) mg/dL Creatinine (0.5-1.4) mg/dL Estim Creat Clear Calc Estimated GFR Random Glucose (60-115) mg/dL Calcium (8.4-10.2) mg/dL Total Bilirubin (0.0-1.0) mg/dL AST (5-37) U/L ALT (0-40) U/L Alkaline Phosphatase (39-117) U/L Troponin I High Sens < 3.5 (<3.5-35.0) ng/L Total Protein (6.5-8.0) g/dL Albumin (3.5-5.0) g/dL Lipase (8-78) U/L Urine Color YELLOW Urine Appearance CLEAR Urine pH 6.0 (5.0-8.0) Ur Specific [place] 1.010 (1.005-1.025) Urine Protein NEG (NEG-TRACE) MG/DL Urine Glucose (UA) NEG (NEG) MG/DL Urine Ketones NEG (NEG) MG/DL Urine Blood TRACE (NEG) Urine Nitrite NEG (NEG) Ur Leukocyte Esterase 2+ H (NEG) Urine RBC 1-4 (0) /HPF Urine WBC 15-29 H (0-4) /HPF Urine WBC Clumps NOTED Ur Squamous Epith Cells 2+ /LPF Amorphous Sediment 1+ /LPF Urine Bacteria 1+ /LPF Urine Opiates Screen (Not Detect) Urine Fentanyl Screen (Not Detect) Ur Barbiturates Screen (Not Detect) Ur Phencyclidine Scrn (Not Detect) Ur Amphetamines Screen (Not Detect) U Benzodiazepines Scrn (Not Detect) Urine Cocaine Screen (Not Detect) U Marijuana (THC) Screen (Not Detect) Ethyl Alcohol < 10 mg/dL 06/09/21 Range/Units 00:09 WBC (4.8-10.8) X10*3/uL RBC (4.60-5.80) X10*6/uL Hgb (14.0-18.0) g/dl Hct (42.0-52.0) % MCV (80.0-98.0) fL MCH (27.0-33.0) pg MCHC (31.0-36.0) g/dl RDW (11.0-16.0) % Plt Count (160-400) X10*3/uL MPV (9.4-12.4) fL Immature Gran % (Auto) (0.0-0.4) % Neut % (Auto) (45-73) % Lymph % (Auto) (20-40) % [place] % (Auto) (2-11) % Eos % (Auto) (0-4) % Baso % (Auto) (0-2) % Lymph # (Auto) (1.2-4.9) X10*3/uL [place] # (Auto) (0.1-1.2) X10*3/uL Eos # (Auto) (0.0-0.4) X10*3/uL Baso # (Auto) (0.0-0.2) X10*3/uL Abs Immat Gran (auto) (0.00-0.03) X10*3/uL Absolute Neuts (auto) (2.0-8.3) x10*3/uL Absolute Nucleated RBC (0.0-0.012) X10*3/uL Nucleated RBC % (auto) (0.0-0.2) /100WBC PT (9.9-13.0) SEC INR (0.9-1.1) APTT (24.1-38.0) SEC D-Dimer High Sensitivty NG/ML Sodium (135-145) mmol/L Potassium (3.3-5.1) mmol/L Chloride (96-108) mmol/L Carbon Dioxide (22-29) mmol/L Anion Gap (12-20) BUN (9-16) mg/dL Creatinine (0.5-1.4) mg/dL Estim Creat Clear Calc Estimated GFR Random Glucose (60-115) mg/dL Calcium (8.4-10.2) mg/dL Total Bilirubin (0.0-1.0) mg/dL AST (5-37) U/L ALT (0-40) U/L Alkaline Phosphatase (39-117) U/L Troponin I High Sens (<3.5-35.0) ng/L Total Protein (6.5-8.0) g/dL Albumin (3.5-5.0) g/dL Lipase (8-78) U/L Urine Color Urine Appearance Urine pH (5.0-8.0) Ur Specific [place] (1.005-1.025) Urine Protein (NEG-TRACE) MG/DL Urine Glucose (UA) (NEG) MG/DL Urine Ketones (NEG) MG/DL Urine Blood (NEG) Urine Nitrite (NEG) Ur Leukocyte Esterase (NEG) Urine RBC (0) /HPF Urine WBC (0-4) /HPF Urine WBC Clumps Ur Squamous Epith Cells /LPF Amorphous Sediment /LPF Urine Bacteria /LPF Urine Opiates Screen Not Detected (Not Detect) Urine Fentanyl Screen Not Detected (Not Detect) Ur Barbiturates Screen Not Detected (Not Detect) Ur Phencyclidine Scrn Not Detected (Not Detect) Ur Amphetamines Screen Not Detected (Not Detect) U Benzodiazepines Scrn POSITIVE H (Not Detect) Urine Cocaine Screen POSITIVE H (Not Detect) U Marijuana (THC) Screen Not Detected (Not Detect) Ethyl Alcohol mg/dL ECG Data Attestation: I personally reviewed and interpreted this ECG as follows: Interpretation: 2254: Normal sinus rhythm rate of 98, normal IA interval QRS duration QTC interval, no ST segment elevation, no ST segment depression, no PACs, no PVCs. Discharge Plan Discharge Clinical Impression: Cocaine use Abdominal pain Qualifiers: Abdominal location: generalized Qualified Code(s): R10.84 - Generalized abdominal pain Chest pain Qualifiers: Chest pain type: unspecified Qualified Code(s): R07.9 - Chest pain, unspecified Patient Disposition: Home, Self-Care Instructions: Chest Wall Pain (ED), Abdominal Pain (ED), Cocaine Abuse (ED) Additional Instructions: Your blood work was unremarkable. Your EKG was normal. Your urine drug screen was positive for benzodiazepines and for cocaine. Using street drugs is dangers since most of the street drugs have fentanyl and fentanyl can cause you to stop breathing and . You should get some counseling and help her your drug use. Your are being discharged home with intranasal Narcan. If you are going to continue to use heroin, you should make sure that there is a sober person with you that is not using drugs and that this person can administer intranasal Narcan in the event that you stop breathing. Follow-up with your doctor in 2 days. Please return to the emergency department if your symptoms get worse or if you develop any symptoms that are concerning to you. Prescriptions: No Action omeprazole 20 mg capsule,delayed release(DR/EC) 20 mg PO DAILY Qty: 30 3RF ferrous sulfate 300 mg (60 mg iron)/5 mL liquid 300 mg PO DAILY 30 Days Qty: 150 3RF cholecalciferol (vitamin D3) 50 mcg (2,000 unit) capsule 50 mcg PO DAILY 90 Days Qty: 90 1RF simethicone [Gas Relief (simethicone)] 125 mg tablet,chewable 125 mg PO BID-QID PRN (Reason: abdominal distention) 30 Days Qty: 90 1RF sulfamethoxazole-trimethoprim [Bactrim DS] 800-160 mg tablet 1 tab PO BID 5 Days Qty: 10 0RF verapamil 40 mg Tablet 40 mg PO TID Qty: 21 0RF Protocol: Hold for SBP/HR < HOLD for SBP < : 90 HOLD for HR < : 60 nicotine (polacrilex) 2 mg Gum 2 mg buccal Q2H PRN (Reason: Nicotine Cravings) Qty: 30 4RF atenolol 25 mg Tablet 25 mg PO DAILY Qty: 7 0RF Protocol: Hold for SBP/HR < HOLD for SBP < : 90 HOLD for HR < : 60 baclofen 10 mg Tablet 10 mg PO TID Qty: 21 4RF mirtazapine 15 mg Tablet 45 mg PO BEDTIME Qty: 7 0RF lidocaine [Lidocaine Pain Relief] 4 % Adhesive Patch,Medicated 1 patch transdermal DAILY Qty: 7 0RF Protocol: Apply to: Apply to: back sucralfate 1 gram Tablet 1 g PO QIDACHS Qty: 120 0RF melatonin 3 mg Tablet 3 mg PO BEDTIME Qty: 7 0RF amitriptyline 50 mg Tablet 50 mg PO BEDTIME Qty: 7 4RF benztropine 1 mg Tablet 1 mg PO BID Qty: 14 0RF fluticasone propionate 50 mcg/actuation [place],Suspension 2 spray intranasal DAILY Qty: 1 4RF fluphenazine HCl 5 mg Tablet 5 mg PO BEDTIME Qty: 7 4RF aripiprazole [Abilify] 5 mg Tablet 5 mg PO DAILY Qty: 7 4RF clonazepam 1 mg tablet 1 tab PO BID Qty: 14 4RF tamsulosin 0.4 mg capsule 1 cap PO DAILY Qty: 7 4RF zolpidem [Ambien] 10 mg Tablet 10 mg PO BEDTIME PRN (Reason: Sleep) 30 Days Qty: 7 4RF Narcan 4 mg/actuation spray,non-aerosol 4 mg intranasal Q2M PRN (Reason: opioid overdose) Qty: 2 0RF Rx Instructions: spray 1 dose into ONE nostril; alternate nostrils w each dose until help arrives zolpidem [Ambien] 10 mg tablet 10 mg PO BEDTIME PRN (Reason: insomnia) Qty: 7 4RF clonazepam [Klonopin] 1 mg tablet 1 mg PO BID Qty: 14 4RF sildenafil 100 mg tablet 100 mg PO DAILY PRN (Reason: sexual activity) 30 Days Qty: 30 1RF Rx Instructions: administer 60 minutes before intended activity sennosides-docusate sodium [Senna with Docusate Sodium] 8.6-50 mg tablet 2 tab-cap PO BEDTIME 30 Days Qty: 60 0RF
[2021-06-09 00:39] LABS: COVID-19 Test Negative (Negative)
== END 2021-06-09 01:05 | disposition home or self-care (01) ==
PROVIDERS: Emergency Provider Emergency Medicine Emergency Medical Services
DX: F14.90 Cocaine use, unspecified, uncomplicated (principal); R10.84 Generalized abdominal pain; R07.9 Chest pain, unspecified; Z20.822 Contact with and (suspected) exposure to COVID-19
CPT/HCPCS: 36415; 80053; 80307; 81001; 82077; 83690; 84484; 85025; 85379; 85610; 85730; 87086; 87635; 93005; 96361; 96374; 96375; 99284; J1885; J2405

== ENCOUNTER 2021-06-14 10:29 | Emergency (ER) | payer MEDICAID, SELFPAY ==
[2021-06-14 11:01] VITALS: BP 108/76; PULSE 77; RESP 16; TEMP 36.7; O2SAT 98; BMI 30.4
[2021-06-14 11:16] LABS: MANUAL DIFF FLAG NO
[2021-06-14 11:17] LABS: Basophils Percent Auto 0.5 % (0-2); Eosinophils Absolute Auto 0.3 X10*3/uL (0.0-0.4); Hematocrit 37.7 % (42.0-52.0); Hemoglobin 12.3 g/dl (14.0-18.0); Imm Gran Abs Auto 0.02 X10*3/uL (0.00-0.03); Imm Gran Pct Auto 0.3 % (0.0-0.4); Lymphocytes Percent Auto 29.8 % (20-40); Mean Corpuscular HGB Conc 32.6 g/dl (31.0-36.0); Mean Corpuscular Hemoglobin 28.8 pg (27.0-33.0); Mean Corpuscular Volume 88.3 fL (80.0-98.0); Mean Platelet Volume 9.1 fL (9.4-12.4); Monocytes Absolute Auto 0.6 X10*3/uL (0.1-1.2); Monocytes Percent Auto 8.4 % (2-11); Neutrophils Absolute Auto 3.8 x10*3/uL (2.0-8.3); Platelet Count 257 X10*3/uL (160-400); Red Blood Count 4.27 X10*6/uL (4.60-5.80); Red Cell Distribution Width 14.4 % (11.0-16.0); White Blood Count 6.6 X10*3/uL (4.8-10.8)
[2021-06-14 11:36] LABS: Alanine Aminotransferase 17 U/L (0-40); Alkaline Phosphatase 77 U/L (39-117); Anion Gap 12 (12-20); Aspartate Amino Transferase 17 U/L (5-37); Bilirubin Total 0.5 mg/dL (0.0-1.0); Blood Urea Nitrogen 4 mg/dL (9-16); Calcium 9.2 mg/dL (8.4-10.2); Carbon Dioxide 33 mmol/L (22-29); Chloride 101 mmol/L (96-108); Creatinine Clr Calc Pharmacy 99.6; Estimated Glomerular Filt Rate > 60; Glucose Random 92 mg/dL (60-115); Lipase 9 U/L (8-78); Potassium 3.5 mmol/L (3.3-5.1); Sodium 142 mmol/L (135-145)
[2021-06-14 14:40] LABS: Influenza A Negative (Negative); Influenza B2 Negative (Negative)
--- NOTE | 2021-06-14 15:38 | ED_ITS ---
HPI - Abdominal Pain General Chief Complaint: Abdominal Pain Stated Complaint: vomiting abd pain x 2wks Time Seen by Provider: 06/14/21 15:01 History of Present Illness HPI narrative: This chart came under my name but I never saw this patient or evaluated him and had no contact with the Related Data Previous Rx's Medication Instructions Recorded amitriptyline 50 mg tablet 50 mg PO BEDTIME #7 tab 11/19/20 aripiprazole 5 mg tablet (Abilify) 5 mg PO DAILY #7 tab 11/19/20 atenolol 25 mg tablet 25 mg PO DAILY #7 tab 11/19/20 baclofen 10 mg tablet 10 mg PO TID #21 tab 11/19/20 benztropine 1 mg tablet 1 mg PO BID #14 tab 11/19/20 clonazepam 1 mg tablet 1 tab PO BID #14 tab 11/19/20 clonazepam 1 mg tablet (Klonopin) 1 mg PO BID #14 tab 11/19/20 fluphenazine HCl 5 mg tablet 5 mg PO BEDTIME #7 tab 11/19/20 fluticasone propionate 50 2 spray INTRANASAL DAILY #1 g 11/19/20 mcg/actuation nasal spray,suspension lidocaine 4 % topical patch 1 patch TRANSDERMAL DAILY #7 ea 11/19/20 (Lidocaine Pain Relief) melatonin 3 mg tablet 3 mg PO BEDTIME #7 tab 11/19/20 mirtazapine 15 mg tablet 45 mg PO BEDTIME #7 tab 11/19/20 naloxone 4 mg/actuation nasal 4 mg INTRANASAL Q2M PRN #2 ea 11/19/20 spray (Narcan) nicotine (polacrilex) 2 mg gum 2 mg BUCCAL Q2H PRN #30 ea 11/19/20 sucralfate 1 gram tablet 1 g PO QIDACHS #120 tab 11/19/20 tamsulosin 0.4 mg capsule 1 cap PO DAILY #7 cap 11/19/20 verapamil 40 mg tablet 40 mg PO TID #21 tab 11/19/20 zolpidem 10 mg tablet (Ambien) 10 mg PO BEDTIME PRN #7 tab 11/19/20 zolpidem 10 mg tablet (Ambien) 10 mg PO BEDTIME PRN 30 Days #7 tab 11/19/20 sildenafil 100 mg tablet 100 mg PO DAILY PRN 30 Days #30 tab 01/30/21 omeprazole 20 mg capsule,delayed 20 mg PO DAILY #30 cap 02/19/21 release ferrous sulfate 300 mg (60 mg 300 mg (5 mL) PO DAILY 30 Days 03/12/21 iron)/5 mL oral liquid #150 ml sennosides 8.6 mg-docusate sodium 2 tab-cap PO BEDTIME 30 Days #60 04/15/21 50 mg tablet (Senna with Docusate tab Sodium) cholecalciferol (vitamin D3) 50 50 mcg PO DAILY 90 Days #90 cap 04/26/21 mcg (2,000 unit) capsule simethicone 125 mg chewable tablet 125 mg PO BID-QID PRN 30 Days #90 05/02/21 (Gas Relief (simethicone)) tab sulfamethoxazole 800 1 tab PO BID 5 Days #10 tab 05/21/21 mg-trimethoprim 160 mg tablet (Bactrim DS) loperamide 2 mg tablet 2 mg PO QID PRN 30 Days #120 tab 06/11/21 (Anti-Diarrheal (loperamide)) Allergies Allergy/AdvReac Type Severity Reaction Status Date / Time trazodone [TRAZODONE] Allergy Severe FACIAL Verified 04/15/21 08:33 SWELLING, swelling cat dander [CATS] Allergy Intermediate FACIAL Verified 04/15/21 08:33 ITCHING doxepin [DOXEPIN] Allergy Intermediate WEIGHT Verified 04/15/21 08:33 GAIN/LEG SWELLING Iodinated Contrast Media Allergy Intermediate ITCHING Verified 04/15/21 08:33 [IV DYE, IODINE CONTAINING CONTRAST ] nitroglycerin [NITROGLYCERIN] Allergy Unknown UNKNOWN Verified 04/15/21 08:33 tramadol [TRAMADOL] Allergy Unknown UNKNOWN, Verified 04/15/21 08:33 dry mouth ibuprofen [From MOTRIN] AdvReac Intermediate GI UPSET Verified 04/15/21 08:33 quetiapine [From SEROQUEL] AdvReac Intermediate FACIAL Verified 04/15/21 08:33 SWELLING aspirin [ASPIRIN] AdvReac Mild Stomach Verified 04/15/21 08:33 Upset Ibuprofen Allergy Unknown stomach Uncoded 01/30/21 10:12 ache IV contrast Allergy Unknown Unknown Uncoded 01/30/21 10:12 Motrin Allergy Unknown stomach Uncoded 01/30/21 10:12 pain PMFSH Past Medical History Medical History Alcohol dependence Anxiety Chest pain Derangement of symphysis pubis Dysphagia GERD (gastroesophageal reflux disease) Major depressive disorder, recurrent severe without psychotic features Opioid abuse Weight loss Surgical History H/O umbilical hernia repair History of colonoscopy History of cystoscopy Family History Family History Father HTN (hypertension) Diabetes Mother HTN (hypertension) Stroke Alzheimer disease Heart disease Social History Social History Household Members: None Housing: Homeless Do you presently have visiting nurse or other home services: No Alcohol intake: current Alcohol intake frequency: 3 or more drinks per day Patient Tobacco Use Status: Current everyday Tobacco user Tobacco use type: Cigarette Cigarette Packs Per Day: 1 Cigarettes Per Day: 20.0 Years Smoked: 9 Second Hand Smoke Exposure: Yes Substance Use Type: Crack/Cocaine Advance Directives: Yes Advance Directives on File: Yes Advance Directives Date on File: 02/24/20 service: No Current occupational status: disabled Sexual orientation: Straight/Heterosexual Physical Exam ED Vital Signs: Vital Signs - 24 hr 06/14/21 11:01 Temperature 98.1 F Pulse Rate 77 Respiratory Rate 16 Blood Pressure 108/76 Pulse Oximetry 98 BMI result Body Mass Index 30.4 MDM - Abdominal Pain Lab Data Result diagrams: 06/14/21 11:11 06/14/21 11:11 Labs: Lab Results 06/14/21 06/14/21 06/14/21 Range/Units 11:11 11:11 14:15 WBC 6.6 (4.8-10.8) X10*3/uL RBC 4.27 L (4.60-5.80) X10*6/uL Hgb 12.3 L (14.0-18.0) g/dl Hct 37.7 L (42.0-52.0) % MCV 88.3 (80.0-98.0) fL MCH 28.8 (27.0-33.0) pg MCHC 32.6 (31.0-36.0) g/dl RDW 14.4 (11.0-16.0) % Plt Count 257 (160-400) X10*3/uL MPV 9.1 L (9.4-12.4) fL Immature Gran % (Auto) 0.3 (0.0-0.4) % Neut % (Auto) 57.0 (45-73) % Lymph % (Auto) 29.8 (20-40) % [place] % (Auto) 8.4 (2-11) % Eos % (Auto) 4.0 (0-4) % Baso % (Auto) 0.5 (0-2) % Lymph # (Auto) 2.0 (1.2-4.9) X10*3/uL [place] # (Auto) 0.6 (0.1-1.2) X10*3/uL Eos # (Auto) 0.3 (0.0-0.4) X10*3/uL Baso # (Auto) 0.0 (0.0-0.2) X10*3/uL Abs Immat Gran (auto) 0.02 (0.00-0.03) X10*3/uL Absolute Neuts (auto) 3.8 (2.0-8.3) x10*3/uL Absolute Nucleated RBC 0.000 (0.0-0.012) X10*3/uL Nucleated RBC % (auto) 0.0 (0.0-0.2) /100WBC Sodium 142 (135-145) mmol/L Potassium 3.5 (3.3-5.1) mmol/L Chloride 101 (96-108) mmol/L Carbon Dioxide 33 H (22-29) mmol/L Anion Gap 12 (12-20) BUN 4 L (9-16) mg/dL Creatinine 0.85 (0.5-1.4) mg/dL Estim Creat Clear Calc 99.6 Estimated GFR > 60 Random Glucose 92 D (60-115) mg/dL Calcium 9.2 (8.4-10.2) mg/dL Total Bilirubin 0.5 (0.0-1.0) mg/dL AST 17 (5-37) U/L ALT 17 (0-40) U/L Alkaline Phosphatase 77 (39-117) U/L Total Protein 7.0 (6.5-8.0) g/dL Albumin 4.0 (3.5-5.0) g/dL Lipase 9 (8-78) U/L Influenza Type A (TOMI) Negative (Negative) Influenza Type B (TOMI) Negative (Negative) Influenza A & B Note See Note Discharge Plan Discharge Patient Disposition: Left Without Being Seen Interventions: LWBS Worksheet Last Done: 06/14/21 15:24 Discharge Date/Time: 06/14/21 15:24
== END 2021-06-14 15:24 | disposition left against medical advice (07) ==
PROVIDERS: Emergency Provider Emergency Medicine; PCP Internal Medicine
DX: R10.9 Unspecified abdominal pain (principal)
CPT/HCPCS: 36415; 80053; 83690; 85025; 87502; 99282; 99283

== ENCOUNTER 2021-06-23 08:13 | Emergency (ER) | payer MEDICAID, SELFPAY ==
--- NOTE | 2021-06-23 | ECG_ITS ---
Test Reason : cocaine use Blood Pressure : / mmHG Vent. Rate : 091 BPM Atrial Rate : 091 BPM P-R Int : 114 ms QRS Dur : 076 ms QT Int : 350 ms P-R-T Axes : 094 005 002 degrees QTc Int : 430 ms Normal sinus rhythm Minimal voltage criteria for LVH, may be normal variant ( R in aVL ) Borderline ECG When compared with ECG of 08-JUN-2021 22:54, No significant change was found Referred By: Mercedes Berg Electronically Signed By:Scottie Figueroa
[2021-06-23 08:15] VITALS: BP 147/93; PULSE 94; RESP 18; TEMP 36.8; O2SAT 97; BMI 30.4
--- NOTE | 2021-06-23 10:54 | ED_ITS ---
HPI - Psych General Chief Complaint: Psychiatric Symptoms <Mercedes Berg MD - Last Filed: 06/23/21 10:56> Stated Complaint: crisis <Mercedes Berg MD - Last Filed: 06/23/21 10:56> Time Seen by Provider: 06/23/21 10:51 <Mercedes Berg MD - Last Filed: 06/23/21 10:56> History of Present Illness HPI Narrative: Patient is a 51-year-old male presents today with having suicidal thoughts extremely anxious. Denies using recreational drugs. Patient claims he is hearing voices. Voices telling him to kill himself. Long history of psychiatric illness in the past <Mercedes Berg MD - Last Filed: 06/23/21 10:56> Related Data Home Medications: Previous Rx's Medication Instructions Recorded amitriptyline 50 mg tablet 50 mg PO BEDTIME #7 tab 11/19/20 aripiprazole 5 mg tablet (Abilify) 5 mg PO DAILY #7 tab 11/19/20 atenolol 25 mg tablet 25 mg PO DAILY #7 tab 11/19/20 baclofen 10 mg tablet 10 mg PO TID #21 tab 11/19/20 benztropine 1 mg tablet 1 mg PO BID #14 tab 11/19/20 clonazepam 1 mg tablet 1 tab PO BID #14 tab 11/19/20 clonazepam 1 mg tablet (Klonopin) 1 mg PO BID #14 tab 11/19/20 fluphenazine HCl 5 mg tablet 5 mg PO BEDTIME #7 tab 11/19/20 fluticasone propionate 50 2 spray INTRANASAL DAILY #1 g 11/19/20 mcg/actuation nasal spray,suspension lidocaine 4 % topical patch 1 patch TRANSDERMAL DAILY #7 ea 11/19/20 (Lidocaine Pain Relief) melatonin 3 mg tablet 3 mg PO BEDTIME #7 tab 11/19/20 mirtazapine 15 mg tablet 45 mg PO BEDTIME #7 tab 11/19/20 naloxone 4 mg/actuation nasal 4 mg INTRANASAL Q2M PRN #2 ea 11/19/20 spray (Narcan) nicotine (polacrilex) 2 mg gum 2 mg BUCCAL Q2H PRN #30 ea 11/19/20 sucralfate 1 gram tablet 1 g PO QIDACHS #120 tab 11/19/20 tamsulosin 0.4 mg capsule 1 cap PO DAILY #7 cap 11/19/20 verapamil 40 mg tablet 40 mg PO TID #21 tab 11/19/20 zolpidem 10 mg tablet (Ambien) 10 mg PO BEDTIME PRN #7 tab 11/19/20 zolpidem 10 mg tablet (Ambien) 10 mg PO BEDTIME PRN 30 Days #7 tab 11/19/20 sildenafil 100 mg tablet 100 mg PO DAILY PRN 30 Days #30 tab 01/30/21 omeprazole 20 mg capsule,delayed 20 mg PO DAILY #30 cap 02/19/21 release ferrous sulfate 300 mg (60 mg 300 mg (5 mL) PO DAILY 30 Days 03/12/21 iron)/5 mL oral liquid #150 ml sennosides 8.6 mg-docusate sodium 2 tab-cap PO BEDTIME 30 Days #60 04/15/21 50 mg tablet (Senna with Docusate tab Sodium) cholecalciferol (vitamin D3) 50 50 mcg PO DAILY 90 Days #90 cap 04/26/21 mcg (2,000 unit) capsule simethicone 125 mg chewable tablet 125 mg PO BID-QID PRN 30 Days #90 05/02/21 (Gas Relief (simethicone)) tab sulfamethoxazole 800 1 tab PO BID 5 Days #10 tab 05/21/21 mg-trimethoprim 160 mg tablet (Bactrim DS) loperamide 2 mg tablet 2 mg PO QID PRN 30 Days #120 tab 06/11/21 (Anti-Diarrheal (loperamide)) ondansetron 4 mg disintegrating 4 mg PO Q8H PRN 25 Days #30 tab 06/20/21 tablet <Mercedes Berg MD - Last Filed: 06/23/21 10:56> Allergies/Adverse Reactions: Allergies Allergy/AdvReac Type Severity Reaction Status Date / Time trazodone [TRAZODONE] Allergy Severe FACIAL Verified 06/23/21 08:15 SWELLING, swelling cat dander [CATS] Allergy Intermediate FACIAL Verified 06/23/21 08:15 ITCHING doxepin [DOXEPIN] Allergy Intermediate WEIGHT Verified 06/23/21 08:15 GAIN/LEG SWELLING Iodinated Contrast Media Allergy Intermediate ITCHING Verified 06/23/21 08:15 [IV DYE, IODINE CONTAINING CONTRAST ] nitroglycerin [NITROGLYCERIN] Allergy Unknown UNKNOWN Verified 06/23/21 08:15 tramadol [TRAMADOL] Allergy Unknown UNKNOWN, Verified 06/23/21 08:15 dry mouth ibuprofen [From MOTRIN] AdvReac Intermediate GI UPSET Verified 06/23/21 08:15 quetiapine [From SEROQUEL] AdvReac Intermediate FACIAL Verified 06/23/21 08:15 SWELLING aspirin [ASPIRIN] AdvReac Mild Stomach Verified 06/23/21 08:15 Upset Ibuprofen Allergy Unknown stomach Uncoded 01/30/21 10:12 ache IV contrast Allergy Unknown Unknown Uncoded 01/30/21 10:12 Motrin Allergy Unknown stomach Uncoded 01/30/21 10:12 pain <Mercedes Berg MD - Last Filed: 06/23/21 10:56> Review of Systems Review of Systems: Positive SI without any specific plans <Mercedes Berg MD - Last Filed: 06/23/21 10:56> Yes all other systems are reviewed and are negative <Mercedes Berg MD - Last Filed: 06/23/21 10:56> PMFSH Past Medical History Attestation statement: The following information was validated with the patient. <Mercedes Berg MD - Last Filed: 06/23/21 10:56> Medical History: Medical History Alcohol dependence Anxiety Chest pain Derangement of symphysis pubis Dysphagia GERD (gastroesophageal reflux disease) Major depressive disorder, recurrent severe without psychotic features Opioid abuse Weight loss <Mercedes Berg MD - Last Filed: 06/23/21 10:56> Surgical History: Surgical History H/O umbilical hernia repair History of colonoscopy History of cystoscopy <Mercedes Berg MD - Last Filed: 06/23/21 10:56> Family History Family History: Family History Father HTN (hypertension) Diabetes Mother HTN (hypertension) Stroke Alzheimer disease Heart disease <Mercedes Berg MD - Last Filed: 06/23/21 10:56> Social History Social History: Social History Household Members: None Housing: Homeless Do you presently have visiting nurse or other home services: No Alcohol intake: current Alcohol intake frequency: 3 or more drinks per day Patient Tobacco Use Status: Current everyday Tobacco user Tobacco use type: Cigarette Cigarette Packs Per Day: 1 Cigarettes Per Day: 20.0 Years Smoked: 9 Second Hand Smoke Exposure: Yes Substance Use Type: Crack/Cocaine Advance Directives: Yes Advance Directives on File: Yes Advance Directives Date on File: 02/24/20 service: No Current occupational status: disabled Sexual orientation: Straight/Heterosexual <Mercedes Berg MD - Last Filed: 06/23/21 10:56> Physical Exam Vital Signs: Vital Signs: Last Vital Signs Temp 98.3 F 06/23/21 08:15 Pulse 94 06/23/21 08:15 Resp 18 06/23/21 08:15 BP 147/93 H 06/23/21 08:15 Pulse Ox 97 06/23/21 08:15 BMI result Body Mass Index 30.4 Appearance: Alert. Oriented X3. No acute distress. Eyes: Pupils equal, round and reactive to light. ENT: Pharynx normal. Neck: Normal inspection. Neck supple. No lymph nodes noted. No crepitus CVS: Normal heart rate and rhythm. Pulses normal. Normal S1 and S2 Respiratory: No respiratory distress. Breath sounds normal. No Wheezing. No rales Abdomen: Soft and nontender. No rigidity. No distention. good BS x4 Skin: Skin warm and dry. Normal skin color. Normal skin turgor. Extremities: No lower extremity edema. Neurovascular intact to all extremities. No Lacerations. No Rash Neuro: Oriented X 3. No motor deficit. No sensory deficit. Moving all extermities. No slurred speech. Cranial nerves grossly intact <Mercedes Berg MD - Last Filed: 06/23/21 10:56> Vital Signs: Last Vital Signs Temp 98.3 F 06/23/21 08:15 Pulse 94 06/23/21 08:15 Resp 18 06/23/21 08:15 BP 147/93 H 06/23/21 08:15 Pulse Ox 97 06/23/21 08:15 BMI result Body Mass Index 30.4 <NASRIN Khan - Last Filed: 06/23/21 16:31> Course Course Course Narrative: 51-year-old male with history of schizoaffective disorder, alcohol abuse, polysubstance abuse presenting to the ER with auditory hallucinations and suicidal ideation for the last 4 days. No active SI. Seen by KHANGN - patient has history of similar presentations and this is chronic for him. He forgot he has appointments with case management for resources in the home tomorrow and Thursday. He is excited for these appointments and wants to be discharged home. JEFF ok with d/c home. Stable for d/c with outpatient follow up. <NASRIN Khan - Last Filed: 06/23/21 16:31> MDM - Psych Lab Data Result diagrams: : 06/23/21 11:34 06/23/21 13:23 <Mercedes Berg MD - Last Filed: 06/23/21 10:56> Labs: Lab Results 06/23/21 06/23/21 06/23/21 Range/Units 11:34 11:34 11:34 WBC 8.0 (4.8-10.8) X10*3/uL RBC 4.94 (4.60-5.80) X10*6/uL Hgb 14.3 (14.0-18.0) g/dl Hct 43.2 (42.0-52.0) % MCV 87.4 (80.0-98.0) fL MCH 28.9 (27.0-33.0) pg MCHC 33.1 (31.0-36.0) g/dl RDW 14.7 (11.0-16.0) % Plt Count 293 (160-400) X10*3/uL MPV 9.4 (9.4-12.4) fL Immature Gran % (Auto) 0.2 (0.0-0.4) % Neut % (Auto) 61.6 (45-73) % Lymph % (Auto) 27.2 (20-40) % [place] % (Auto) 7.9 (2-11) % Eos % (Auto) 2.6 (0-4) % Baso % (Auto) 0.5 (0-2) % Lymph # (Auto) 2.2 (1.2-4.9) X10*3/uL [place] # (Auto) 0.6 (0.1-1.2) X10*3/uL Eos # (Auto) 0.2 (0.0-0.4) X10*3/uL Baso # (Auto) 0.0 (0.0-0.2) X10*3/uL Abs Immat Gran (auto) 0.02 (0.00-0.03) X10*3/uL Absolute Neuts (auto) 4.9 (2.0-8.3) x10*3/uL Absolute Nucleated RBC 0.000 (0.0-0.012) X10*3/uL Nucleated RBC % (auto) 0.0 (0.0-0.2) /100WBC Sodium (135-145) mmol/L Potassium (3.3-5.1) mmol/L Chloride (96-108) mmol/L Carbon Dioxide (22-29) mmol/L Anion Gap (12-20) BUN (9-16) mg/dL Creatinine (0.5-1.4) mg/dL Estim Creat Clear Calc Estimated GFR Random Glucose (60-115) mg/dL Calcium (8.4-10.2) mg/dL Magnesium (1.6-2.6) mg/dL Urine Opiates Screen (Not Detect) Urine Fentanyl Screen (Not Detect) Ur Barbiturates Screen (Not Detect) Ur Phencyclidine Scrn (Not Detect) Ur Amphetamines Screen (Not Detect) U Benzodiazepines Scrn (Not Detect) Urine Cocaine Screen (Not Detect) U Marijuana (THC) Screen (Not Detect) Ethyl Alcohol < 10 mg/dL COVID-19 (ERIN) Negative (Negative) COVID-19 Clin Com See Note 06/23/21 06/23/21 06/23/21 Range/Units 11:34 12:51 13:23 WBC (4.8-10.8) X10*3/uL RBC (4.60-5.80) X10*6/uL Hgb (14.0-18.0) g/dl Hct (42.0-52.0) % MCV (80.0-98.0) fL MCH (27.0-33.0) pg MCHC (31.0-36.0) g/dl RDW (11.0-16.0) % Plt Count (160-400) X10*3/uL MPV (9.4-12.4) fL Immature Gran % (Auto) (0.0-0.4) % Neut % (Auto) (45-73) % Lymph % (Auto) (20-40) % [place] % (Auto) (2-11) % Eos % (Auto) (0-4) % Baso % (Auto) (0-2) % Lymph # (Auto) (1.2-4.9) X10*3/uL [place] # (Auto) (0.1-1.2) X10*3/uL Eos # (Auto) (0.0-0.4) X10*3/uL Baso # (Auto) (0.0-0.2) X10*3/uL Abs Immat Gran (auto) (0.00-0.03) X10*3/uL Absolute Neuts (auto) (2.0-8.3) x10*3/uL Absolute Nucleated RBC (0.0-0.012) X10*3/uL Nucleated RBC % (auto) (0.0-0.2) /100WBC Sodium 139 (135-145) mmol/L Potassium 2.8 L 3.5 D (3.3-5.1) mmol/L Chloride 100 (96-108) mmol/L Carbon Dioxide 28 (22-29) mmol/L Anion Gap 14 (12-20) BUN 3 L (9-16) mg/dL Creatinine 0.93 (0.5-1.4) mg/dL Estim Creat Clear Calc 91.0 Estimated GFR > 60 Random Glucose 135 H D (60-115) mg/dL Calcium 9.8 D (8.4-10.2) mg/dL Magnesium 2.1 (1.6-2.6) mg/dL Urine Opiates Screen Not Detected (Not Detect) Urine Fentanyl Screen Not Detected (Not Detect) Ur Barbiturates Screen Not Detected (Not Detect) Ur Phencyclidine Scrn Not Detected (Not Detect) Ur Amphetamines Screen Not Detected (Not Detect) U Benzodiazepines Scrn POSITIVE H (Not Detect) Urine Cocaine Screen POSITIVE H (Not Detect) U Marijuana (THC) Screen Not Detected (Not Detect) Ethyl Alcohol mg/dL COVID-19 (ERIN) (Negative) COVID-19 Clin Com <Mercedes Berg MD - Last Filed: 06/23/21 10:56> Lab Results 06/23/21 06/23/21 06/23/21 Range/Units 11:34 11:34 11:34 WBC 8.0 (4.8-10.8) X10*3/uL RBC 4.94 (4.60-5.80) X10*6/uL Hgb 14.3 (14.0-18.0) g/dl Hct 43.2 (42.0-52.0) % MCV 87.4 (80.0-98.0) fL MCH 28.9 (27.0-33.0) pg MCHC 33.1 (31.0-36.0) g/dl RDW 14.7 (11.0-16.0) % Plt Count 293 (160-400) X10*3/uL MPV 9.4 (9.4-12.4) fL Immature Gran % (Auto) 0.2 (0.0-0.4) % Neut % (Auto) 61.6 (45-73) % Lymph % (Auto) 27.2 (20-40) % [place] % (Auto) 7.9 (2-11) % Eos % (Auto) 2.6 (0-4) % Baso % (Auto) 0.5 (0-2) % Lymph # (Auto) 2.2 (1.2-4.9) X10*3/uL [place] # (Auto) 0.6 (0.1-1.2) X10*3/uL Eos # (Auto) 0.2 (0.0-0.4) X10*3/uL Baso # (Auto) 0.0 (0.0-0.2) X10*3/uL Abs Immat Gran (auto) 0.02 (0.00-0.03) X10*3/uL Absolute Neuts (auto) 4.9 (2.0-8.3) x10*3/uL Absolute Nucleated RBC 0.000 (0.0-0.012) X10*3/uL Nucleated RBC % (auto) 0.0 (0.0-0.2) /100WBC Sodium (135-145) mmol/L Potassium (3.3-5.1) mmol/L Chloride (96-108) mmol/L Carbon Dioxide (22-29) mmol/L Anion Gap (12-20) BUN (9-16) mg/dL Creatinine (0.5-1.4) mg/dL Estim Creat Clear Calc Estimated GFR Random Glucose (60-115) mg/dL Calcium (8.4-10.2) mg/dL Magnesium (1.6-2.6) mg/dL Urine Opiates Screen (Not Detect) Urine Fentanyl Screen (Not Detect) Ur Barbiturates Screen (Not Detect) Ur Phencyclidine Scrn (Not Detect) Ur Amphetamines Screen (Not Detect) U Benzodiazepines Scrn (Not Detect) Urine Cocaine Screen (Not Detect) U Marijuana (THC) Screen (Not Detect) Ethyl Alcohol < 10 mg/dL COVID-19 (ERIN) Negative (Negative) COVID-19 Clin Com See Note 06/23/21 06/23/21 06/23/21 Range/Units 11:34 12:51 13:23 WBC (4.8-10.8) X10*3/uL RBC (4.60-5.80) X10*6/uL Hgb (14.0-18.0) g/dl Hct (42.0-52.0) % MCV (80.0-98.0) fL MCH (27.0-33.0) pg MCHC (31.0-36.0) g/dl RDW (11.0-16.0) % Plt Count (160-400) X10*3/uL MPV (9.4-12.4) fL Immature Gran % (Auto) (0.0-0.4) % Neut % (Auto) (45-73) % Lymph % (Auto) (20-40) % [place] % (Auto) (2-11) % Eos % (Auto) (0-4) % Baso % (Auto) (0-2) % Lymph # (Auto) (1.2-4.9) X10*3/uL [place] # (Auto) (0.1-1.2) X10*3/uL Eos # (Auto) (0.0-0.4) X10*3/uL Baso # (Auto) (0.0-0.2) X10*3/uL Abs Immat Gran (auto) (0.00-0.03) X10*3/uL Absolute Neuts (auto) (2.0-8.3) x10*3/uL Absolute Nucleated RBC (0.0-0.012) X10*3/uL Nucleated RBC % (auto) (0.0-0.2) /100WBC Sodium 139 (135-145) mmol/L Potassium 2.8 L 3.5 D (3.3-5.1) mmol/L Chloride 100 (96-108) mmol/L Carbon Dioxide 28 (22-29) mmol/L Anion Gap 14 (12-20) BUN 3 L (9-16) mg/dL Creatinine 0.93 (0.5-1.4) mg/dL Estim Creat Clear Calc 91.0 Estimated GFR > 60 Random Glucose 135 H D (60-115) mg/dL Calcium 9.8 D (8.4-10.2) mg/dL Magnesium 2.1 (1.6-2.6) mg/dL Urine Opiates Screen Not Detected (Not Detect) Urine Fentanyl Screen Not Detected (Not Detect) Ur Barbiturates Screen Not Detected (Not Detect) Ur Phencyclidine Scrn Not Detected (Not Detect) Ur Amphetamines Screen Not Detected (Not Detect) U Benzodiazepines Scrn POSITIVE H (Not Detect) Urine Cocaine Screen POSITIVE H (Not Detect) U Marijuana (THC) Screen Not Detected (Not Detect) Ethyl Alcohol mg/dL COVID-19 (ERIN) (Negative) COVID-19 Clin Com <NASRIN Khan - Last Filed: 06/23/21 16:31> Discharge Plan Discharge Clinical Impression: Schizoaffective disorder, Alcohol use disorder <Mercedes Berg MD - Last Filed: 06/23/21 10:56> Patient Disposition: Home, Self-Care <Mercedes Berg MD - Last Filed: 06/23/21 10:56> Instructions: Schizoaffective Disorder (ED), Alcohol Use Disorder (ED) <Mercedes Berg MD - Last Filed: 06/23/21 10:56> Additional Instructions: You have appointments in the home tomorrow and Thursday - make sure to follow up with them. DO NOT DRINK ALCOHOL OR DO ILLICIT DRUGS Follow up with your doctor and therapist DOMINGO <Mercedes Berg MD - Last Filed: 06/23/21 10:56> Prescriptions: No Action omeprazole 20 mg capsule,delayed release(DR/EC) 20 mg PO DAILY Qty: 30 3RF ferrous sulfate 300 mg (60 mg iron)/5 mL liquid 300 mg PO DAILY 30 Days Qty: 150 3RF cholecalciferol (vitamin D3) 50 mcg (2,000 unit) capsule 50 mcg PO DAILY 90 Days Qty: 90 1RF simethicone [Gas Relief (simethicone)] 125 mg tablet,chewable 125 mg PO BID-QID PRN (Reason: abdominal distention) 30 Days Qty: 90 1RF sulfamethoxazole-trimethoprim [Bactrim DS] 800-160 mg tablet 1 tab PO BID 5 Days Qty: 10 0RF loperamide [Anti-Diarrheal (loperamide)] 2 mg tablet 2 mg PO QID PRN (Reason: loose stool) 30 Days Qty: 120 1RF ondansetron 4 mg tablet,disintegrating 4 mg PO Q8H PRN (Reason: nausea and vomiting) 25 Days Qty: 30 0RF verapamil 40 mg Tablet 40 mg PO TID Qty: 21 0RF Protocol: Hold for SBP/HR < HOLD for SBP < : 90 HOLD for HR < : 60 nicotine (polacrilex) 2 mg Gum 2 mg buccal Q2H PRN (Reason: Nicotine Cravings) Qty: 30 4RF atenolol 25 mg Tablet 25 mg PO DAILY Qty: 7 0RF Protocol: Hold for SBP/HR < HOLD for SBP < : 90 HOLD for HR < : 60 baclofen 10 mg Tablet 10 mg PO TID Qty: 21 4RF mirtazapine 15 mg Tablet 45 mg PO BEDTIME Qty: 7 0RF lidocaine [Lidocaine Pain Relief] 4 % Adhesive Patch,Medicated 1 patch transdermal DAILY Qty: 7 0RF Protocol: Apply to: Apply to: back sucralfate 1 gram Tablet 1 g PO QIDACHS Qty: 120 0RF melatonin 3 mg Tablet 3 mg PO BEDTIME Qty: 7 0RF amitriptyline 50 mg Tablet 50 mg PO BEDTIME Qty: 7 4RF benztropine 1 mg Tablet 1 mg PO BID Qty: 14 0RF fluticasone propionate 50 mcg/actuation [place],Suspension 2 spray intranasal DAILY Qty: 1 4RF fluphenazine HCl 5 mg Tablet 5 mg PO BEDTIME Qty: 7 4RF aripiprazole [Abilify] 5 mg Tablet 5 mg PO DAILY Qty: 7 4RF clonazepam 1 mg tablet 1 tab PO BID Qty: 14 4RF tamsulosin 0.4 mg capsule 1 cap PO DAILY Qty: 7 4RF zolpidem [Ambien] 10 mg Tablet 10 mg PO BEDTIME PRN (Reason: Sleep) 30 Days Qty: 7 4RF Narcan 4 mg/actuation spray,non-aerosol 4 mg intranasal Q2M PRN (Reason: opioid overdose) Qty: 2 0RF Rx Instructions: spray 1 dose into ONE nostril; alternate nostrils w each dose until help arrives zolpidem [Ambien] 10 mg tablet 10 mg PO BEDTIME PRN (Reason: insomnia) Qty: 7 4RF clonazepam [Klonopin] 1 mg tablet 1 mg PO BID Qty: 14 4RF sildenafil 100 mg tablet 100 mg PO DAILY PRN (Reason: sexual activity) 30 Days Qty: 30 1RF Rx Instructions: administer 60 minutes before intended activity sennosides-docusate sodium [Senna with Docusate Sodium] 8.6-50 mg tablet 2 tab-cap PO BEDTIME 30 Days Qty: 60 0RF <Mercedes Berg MD - Last Filed: 06/23/21 10:56>
[2021-06-23] MEDS: Ondansetron ODT 4 MG TAB.RAPDIS TRANSLINGU ×2 (11:08→13:52)
[2021-06-23] MEDS: LORazepam 1 MG TABLET PO (11:08)
[2021-06-23 11:41] LABS: MANUAL DIFF FLAG NO
[2021-06-23 11:50] LABS: Basophils Percent Auto 0.5 % (0-2); Eosinophils Absolute Auto 0.2 X10*3/uL (0.0-0.4); Eosinophils Percent Auto 2.6 % (0-4); Hematocrit 43.2 % (42.0-52.0); Hemoglobin 14.3 g/dl (14.0-18.0); Imm Gran Abs Auto 0.02 X10*3/uL (0.00-0.03); Imm Gran Pct Auto 0.2 % (0.0-0.4); Lymphocytes Absolute Auto 2.2 X10*3/uL (1.2-4.9); Lymphocytes Percent Auto 27.2 % (20-40); Mean Corpuscular HGB Conc 33.1 g/dl (31.0-36.0); Mean Corpuscular Hemoglobin 28.9 pg (27.0-33.0); Mean Corpuscular Volume 87.4 fL (80.0-98.0); Mean Platelet Volume 9.4 fL (9.4-12.4); Monocytes Absolute Auto 0.6 X10*3/uL (0.1-1.2); Monocytes Percent Auto 7.9 % (2-11); Neutrophils Absolute Auto 4.9 x10*3/uL (2.0-8.3); Neutrophils Percent Auto 61.6 % (45-73); Platelet Count 293 X10*3/uL (160-400); Red Blood Count 4.94 X10*6/uL (4.60-5.80); Red Cell Distribution Width 14.7 % (11.0-16.0)
[2021-06-23 11:58] LABS: Ethanol < 10 mg/dL
[2021-06-23 12:04] LABS: Anion Gap 14 (12-20); Blood Urea Nitrogen 3 mg/dL (9-16); Calcium 9.8 mg/dL (8.4-10.2); Carbon Dioxide 28 mmol/L (22-29); Chloride 100 mmol/L (96-108); Estimated Glomerular Filt Rate > 60; Glucose Random 135 mg/dL (60-115); Potassium 2.8 mmol/L (3.3-5.1); Sodium 139 mmol/L (135-145)
[2021-06-23] MEDS: Potassium Chloride Packet 20 MEQ PACKET 40 MEQ PO (12:14)
[2021-06-23 12:23] LABS: Magnesium 2.1 mg/dL (1.6-2.6)
[2021-06-23 12:36] LABS: COVID-19 Test Negative (Negative); IDNOW Serial# 16C4AD1C
[2021-06-23 13:12] LABS: Amphetamine Screen Urine Not Detected (Not Detect); Barbiturates, Urine Not Detected (Not Detect); Benzodiazepines Screen Urine POSITIVE (Not Detect); Cannabinoid Screen Urine Not Detected (Not Detect); Cocaine Screen Urine POSITIVE (Not Detect); Fentanyl, urine Not Detected (Not Detect); Opiate Screen Urine Not Detected (Not Detect); Phencyclidine Screen Urine Not Detected (Not Detect)
[2021-06-23 13:44] LABS: Potassium 3.5 mmol/L (3.3-5.1)
--- NOTE | 2021-06-23 13:52 | PC.NURSE ---
Patient continues with nausea, provider notified said give another dose of 4mg zofran and then provided prn order
[2021-06-23] MEDS: Loperamide HCl 2 MG CAPSULE PO (14:46)
== END 2021-06-23 16:50 | disposition home or self-care (01) ==
PROVIDERS: Emergency Provider Emergency Medicine Emergency Medical Services; PCP Internal Medicine
DX: F33.1 Major depressive disorder, recurrent, moderate (principal); R45.851 Suicidal ideations; F41.1 Generalized anxiety disorder; F43.0 Acute stress reaction; F17.210 Nicotine dependence, cigarettes, uncomplicated; F14.10 Cocaine abuse, uncomplicated; Z79.899 Other long term (current) drug therapy; Z71.6 Tobacco abuse counseling; Z20.822 Contact with and (suspected) exposure to COVID-19
CPT/HCPCS: 36415; 80048; 80307; 82077; 83735; 84132; 85025; 87635; 93005; 99284

== ENCOUNTER 2021-06-29 05:15 | Emergency (ER) | payer MEDICAID, SELFPAY ==
--- NOTE | ~2021-06-29 | CT_ITS ---
EXAMINATION: CT ABDOMEN AND PELVIS WITHOUT CONTRAST CLINICAL INFORMATION: Epigastric pain. COMPARISON: CT abdomen pelvis dated 08/05/2020 TECHNIQUE: Multidetector volumetric imaging was performed from the superior aspect of the liver through the pubic symphysis. Sagittal and coronal reformatted images were obtained on the technologist's workstation. This CT examination was performed using dose optimization techniques as appropriate, variously including the following: *Automated exposure control *Adjustment of mA and/or kV according to patient size (this includes techniques or standardized protocols for targeted exams where dose is matched to indication/reason for exam; i.e. extremities or head) *Use of iterative reconstruction technique DLP: 747 mGy-cm FINDINGS: LUNG BASES: Minimal dependent atelectasis. Small foci of calcific atherosclerosis in the coronary arteries. There is wall thickening the distal esophagus with mild fat stranding, concerning for esophagitis. The wall thickening appears irregular and stricturing or nodularity are possible. LIVER, GALLBLADDER, AND BILIARY TREE: Relative hypoattenuation of the hepatic parenchyma is consistent with steatosis. No focal lesions are identified. Liver is normal in size and contour. No biliary ductal dilatation. The gallbladder is unremarkable with no evidence of radiopaque gallstones, gallbladder wall thickening, or obvious pericholecystic inflammatory changes. PANCREAS: Moderate pancreatic atrophy. SPLEEN: Unremarkable. ADRENAL GLANDS: Unremarkable. KIDNEYS AND URETERS: There is a 4 cm fluid density (0 Hounsfield unit) cyst at the anterior cortex of the left kidney. No recommend imaging follow-up. No suspicious lesions. Kidneys normal in size and contour with normal cortical thickness. No nephrolithiasis or hydronephrosis. Ureters are normal in course and caliber. BLADDER: Unremarkable. Scar tissue and calcifications are evident in the space of Retzius just anterior to the bladder. GASTROINTESTINAL TRACT: As noted above, there is wall thickening and fat stranding at the distal esophagus. Stomach, small bowel, and colon are normal in caliber. No additional areas of inflammation are identified. Appendix is normal. No intraperitoneal free fluid or free air. ABDOMINAL WALL: No significant hernia is appreciated. LYMPH NODES: Normal. VASCULAR: Atherosclerotic calcifications are present in the abdominal aorta. No aneurysmal dilatation. PELVIC VISCERA: The prostate and seminal vesicles are unremarkable. OSSEOUS STRUCTURES: Status post posterior and interbody fusion at L3-L4. No acute osseous findings. CT/CT abdomen pelvis wo con IMPRESSION: 1. Irregular wall thickening the distal esophagus with adjacent fat stranding. Although this could correspond to esophagitis, further assessment with a barium swallow study or endoscopy is advised to exclude esophageal neoplasm. 2. Hepatic steatosis. Fleischner guidelines were followed.
--- NOTE | 2021-06-29 05:43 | ECG_ITS ---
Test Reason : A/P Blood Pressure : / mmHG Vent. Rate : 082 BPM Atrial Rate : 082 BPM P-R Int : 128 ms QRS Dur : 084 ms QT Int : 388 ms P-R-T Axes : 027 011 006 degrees QTc Int : 453 ms Normal sinus rhythm Minimal voltage criteria for LVH, may be normal variant ( R in aVL ) Nonspecific T wave abnormality Abnormal ECG When compared with ECG of 23-JUN-2021 15:11, No significant change was found Referred By: Meri Hoyos Electronically Signed By:Scottie Figueora
[2021-06-29 05:45] VITALS: BP 144/95; BP 145/95; PULSE 99; RESP 18; TEMP 36.9; O2SAT 95; O2SAT 99; BMI 30.4
--- NOTE | 2021-06-29 05:45 | ED.GENADULT ---
HPI - General Adult General Chief complaint: Abdominal Pain Stated complaint: abdominal pain Time Seen by Provider: 06/29/21 05:37 Source: patient Mode of arrival: ambulatory Limitations: no limitations History of Present Illness HPI narrative: Patient comes emergency room complaining of epigastric pain. Patient states he has had epigastric pain, nausea vomiting and decreased p.o. intake for 2 weeks. Patient states that he has not had any alcohol in several months. Patient denies any respiratory symptoms, no UTI symptoms. Related Data Previous Rx's Medication Instructions Recorded amitriptyline 50 mg tablet 50 mg PO BEDTIME #7 tab 11/19/20 aripiprazole 5 mg tablet (Abilify) 5 mg PO DAILY #7 tab 11/19/20 atenolol 25 mg tablet 25 mg PO DAILY #7 tab 11/19/20 baclofen 10 mg tablet 10 mg PO TID #21 tab 11/19/20 benztropine 1 mg tablet 1 mg PO BID #14 tab 11/19/20 clonazepam 1 mg tablet 1 tab PO BID #14 tab 11/19/20 clonazepam 1 mg tablet (Klonopin) 1 mg PO BID #14 tab 11/19/20 fluphenazine HCl 5 mg tablet 5 mg PO BEDTIME #7 tab 11/19/20 fluticasone propionate 50 2 spray INTRANASAL DAILY #1 g 11/19/20 mcg/actuation nasal spray,suspension lidocaine 4 % topical patch 1 patch TRANSDERMAL DAILY #7 ea 11/19/20 (Lidocaine Pain Relief) melatonin 3 mg tablet 3 mg PO BEDTIME #7 tab 11/19/20 mirtazapine 15 mg tablet 45 mg PO BEDTIME #7 tab 11/19/20 naloxone 4 mg/actuation nasal 4 mg INTRANASAL Q2M PRN #2 ea 11/19/20 spray (Narcan) nicotine (polacrilex) 2 mg gum 2 mg BUCCAL Q2H PRN #30 ea 11/19/20 sucralfate 1 gram tablet 1 g PO QIDACHS #120 tab 11/19/20 tamsulosin 0.4 mg capsule 1 cap PO DAILY #7 cap 11/19/20 verapamil 40 mg tablet 40 mg PO TID #21 tab 11/19/20 zolpidem 10 mg tablet (Ambien) 10 mg PO BEDTIME PRN #7 tab 11/19/20 zolpidem 10 mg tablet (Ambien) 10 mg PO BEDTIME PRN 30 Days #7 tab 11/19/20 sildenafil 100 mg tablet 100 mg PO DAILY PRN 30 Days #30 tab 01/30/21 omeprazole 20 mg capsule,delayed 20 mg PO DAILY #30 cap 02/19/21 release ferrous sulfate 300 mg (60 mg 300 mg (5 mL) PO DAILY 30 Days 03/12/21 iron)/5 mL oral liquid #150 ml sennosides 8.6 mg-docusate sodium 2 tab-cap PO BEDTIME 30 Days #60 04/15/21 50 mg tablet (Senna with Docusate tab Sodium) cholecalciferol (vitamin D3) 50 50 mcg PO DAILY 90 Days #90 cap 04/26/21 mcg (2,000 unit) capsule simethicone 125 mg chewable tablet 125 mg PO BID-QID PRN 30 Days #90 05/02/21 (Gas Relief (simethicone)) tab sulfamethoxazole 800 1 tab PO BID 5 Days #10 tab 05/21/21 mg-trimethoprim 160 mg tablet (Bactrim DS) loperamide 2 mg tablet 2 mg PO QID PRN 30 Days #120 tab 06/11/21 (Anti-Diarrheal (loperamide)) ondansetron 4 mg disintegrating 4 mg PO Q8H PRN 25 Days #30 tab 06/24/21 tablet sucralfate 1 gram tablet (Carafate) 1 g PO BID #30 tab 06/29/21 Allergies Allergy/AdvReac Type Severity Reaction Status Date / Time trazodone [TRAZODONE] Allergy Severe FACIAL Verified 06/23/21 08:15 SWELLING, swelling cat dander [CATS] Allergy Intermediate FACIAL Verified 06/23/21 08:15 ITCHING doxepin [DOXEPIN] Allergy Intermediate WEIGHT Verified 06/23/21 08:15 GAIN/LEG SWELLING Iodinated Contrast Media Allergy Intermediate ITCHING Verified 06/23/21 08:15 [IV DYE, IODINE CONTAINING CONTRAST ] nitroglycerin [NITROGLYCERIN] Allergy Unknown UNKNOWN Verified 06/23/21 08:15 tramadol [TRAMADOL] Allergy Unknown UNKNOWN, Verified 06/23/21 08:15 dry mouth ibuprofen [From MOTRIN] AdvReac Intermediate GI UPSET Verified 06/23/21 08:15 quetiapine [From SEROQUEL] AdvReac Intermediate FACIAL Verified 06/23/21 08:15 SWELLING aspirin [ASPIRIN] AdvReac Mild Stomach Verified 06/23/21 08:15 Upset Ibuprofen Allergy Unknown stomach Uncoded 01/30/21 10:12 ache IV contrast Allergy Unknown Unknown Uncoded 01/30/21 10:12 Motrin Allergy Unknown stomach Uncoded 01/30/21 10:12 pain Review of Systems Review of Systems: Constitutional : No Weight loss, No Fever, No Chills, No Night Sweats, No Fatigue, No Malaise ENT/Mouth : No Hearing loss, No Ear Pain, No Nasal Congestion, No Sinus Pain, No Hoarseness, No sore throat, No Rhinorrhea, No Swallowing Difficulty Eyes: No Eye Pain, No Swelling, No Redness, No Foreign Body, No Discharge, No Vision Changes Cardiovascular : No Chest Pain, No SOB, No Dyspnea on Exertion, No Orthopnea, No Edema, No Palpitations Respiratory : No Cough, No Sputum, No Wheezing, No Smoke Exposure, No Dyspnea Gastrointestinal : Complaining of nausea, vomiting, epigastric pain, no diarrhea, no melena Genitourinary : no irregular bleeding, No Dysuria, No Urinary Frequency, No Hematuria, No Urinary Incontinence, No Urgency, No Flank Pain, No Urinary Flow Changes, No Hesitancy Musculoskeletal : No joint pain, No Myalgias, No Joint Swelling Skin : No Skin Lesions, No rash Neuro : No Weakness, No Numbness, No Paresthesias, No Loss of Consciousness, No Dizziness, No Headache Psych : No Anxiety/Panic, No Depression, No SI/HI/AH/VH, No Social Issues, Heme/Lymph: No Bruising, No Bleeding,No Lymphadenopathy Endocrine : No Polyuria, No Polydipsia, No Temperature Intolerance [facility] Past Medical History Medical History Alcohol dependence Anxiety Chest pain Derangement of symphysis pubis Dysphagia GERD (gastroesophageal reflux disease) Major depressive disorder, recurrent severe without psychotic features Opioid abuse Weight loss Surgical History H/O umbilical hernia repair History of colonoscopy History of cystoscopy Family History Family History Father HTN (hypertension) Diabetes Mother HTN (hypertension) Stroke Alzheimer disease Heart disease Social History Social History Household Members: None Housing: Homeless Do you presently have visiting nurse or other home services: No Alcohol intake: never Patient Tobacco Use Status: Current everyday Tobacco user Tobacco use type: Cigarette Cigarette Packs Per Day: 1 Cigarettes Per Day: 20.0 Years Smoked: 9 Second Hand Smoke Exposure: Yes Use of substances other than those prescribed or required for medical reasons: No Substance Use Type: Crack/Cocaine Advance Directives: Yes Advance Directives on File: Yes Advance Directives Date on File: 02/24/20 service: No Current occupational status: disabled Sexual orientation: Straight/Heterosexual Physical Exam ED Vital Signs: Vital Signs - 24 hr 06/29/21 05:45 06/29/21 06:00 Temperature 98.5 F Pulse Rate 99 88 Respiratory Rate 18 15 Blood Pressure 144/95 H 119/90 H Pulse Oximetry 99 99 BMI result Body Mass Index 30.4 Const Other: Appearance: Alert. Oriented X3. No acute distress. Well-appearing Eyes: Pupils equal, round and reactive to light. ENT: Pharynx normal. Neck: Normal inspection. Neck supple. No lymph nodes noted. No crepitus CVS: Normal heart rate and rhythm. Pulses normal. Normal S1 and S2 Respiratory: No respiratory distress. Breath sounds normal. No Wheezing. No rales Abdomen: Soft , tenderness to palpation in epigastric area Skin: Skin warm and dry. Normal skin color. Normal skin turgor. Extremities: No lower extremity edema. No Lacerations. No Rash Neuro: Oriented X 3. No motor deficit. No sensory deficit. Moving all extremities. No slurred speech. CN 2 through 12 grossly intact Psych: calm, cooperative, normal affect Course Course Course Narrative: Patient is receiving IV fluids, famotidine and Zofran. All the labs and imaging pending. Patient's potassium is 2.9, it was repleted with oral potassium 40 mEq. Also a GI cocktail was given. CT scan pending. Disposition pending on CT scan findings. I discussed the CT scan with the patient, patient likely having esophagitis. EKG within normal limits, troponin at baseline. 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 Patient provided with our GI specialists phone number as well Medical Decision Making Lab Data Result diagrams: 06/29/21 06:05 06/29/21 06:05 Labs: Lab Results 06/29/21 06/29/21 06/29/21 Range/Units 06:05 06:05 06:05 WBC 7.5 (4.8-10.8) X10*3/uL RBC 4.74 (4.60-5.80) X10*6/uL Hgb 13.9 L (14.0-18.0) g/dl Hct 41.3 L (42.0-52.0) % MCV 87.1 (80.0-98.0) fL MCH 29.3 (27.0-33.0) pg MCHC 33.7 (31.0-36.0) g/dl RDW 14.6 (11.0-16.0) % Plt Count 276 (160-400) X10*3/uL MPV 9.4 (9.4-12.4) fL Immature Gran % (Auto) 0.5 H (0.0-0.4) % Neut % (Auto) 52.7 (45-73) % Lymph % (Auto) 34.5 (20-40) % [place] % (Auto) 8.7 (2-11) % Eos % (Auto) 3.1 (0-4) % Baso % (Auto) 0.5 (0-2) % Lymph # (Auto) 2.6 (1.2-4.9) X10*3/uL [place] # (Auto) 0.7 (0.1-1.2) X10*3/uL Eos # (Auto) 0.2 (0.0-0.4) X10*3/uL Baso # (Auto) 0.0 (0.0-0.2) X10*3/uL Abs Immat Gran (auto) 0.04 H (0.00-0.03) X10*3/uL Absolute Neuts (auto) 3.9 (2.0-8.3) x10*3/uL Absolute Nucleated RBC 0.000 (0.0-0.012) X10*3/uL Nucleated RBC % (auto) 0.0 (0.0-0.2) /100WBC PT (9.9-13.0) SEC INR (0.9-1.1) Sodium 139 (135-145) mmol/L Potassium 2.9 L (3.3-5.1) mmol/L Chloride 98 (96-108) mmol/L Carbon Dioxide 30 H (22-29) mmol/L Anion Gap 14 (12-20) BUN 6 L D (9-16) mg/dL Creatinine 1.05 (0.5-1.4) mg/dL Estim Creat Clear Calc 80.6 Estimated GFR > 60 Random Glucose 145 H (60-115) mg/dL Calcium 9.6 (8.4-10.2) mg/dL Magnesium 2.2 (1.6-2.6) mg/dL Total Bilirubin 0.7 (0.0-1.0) mg/dL Direct Bilirubin 0.2 (0.0-0.5) mg/dL AST 17 (5-37) U/L ALT 17 (0-40) U/L Alkaline Phosphatase 97 D (39-117) U/L Troponin I High Sens 4.0 (<3.5-35.0) ng/L Total Protein 7.5 (6.5-8.0) g/dL Albumin 4.0 (3.5-5.0) g/dL Lipase 12 (8-78) U/L Ethyl Alcohol mg/dL COVID-19 (ERIN) (Negative) COVID-19 Clin Com 06/29/21 06/29/21 06/29/21 Range/Units 06:05 06:05 06:05 WBC (4.8-10.8) X10*3/uL RBC (4.60-5.80) X10*6/uL Hgb (14.0-18.0) g/dl Hct (42.0-52.0) % MCV (80.0-98.0) fL MCH (27.0-33.0) pg MCHC (31.0-36.0) g/dl RDW (11.0-16.0) % Plt Count (160-400) X10*3/uL MPV (9.4-12.4) fL Immature Gran % (Auto) (0.0-0.4) % Neut % (Auto) (45-73) % Lymph % (Auto) (20-40) % [place] % (Auto) (2-11) % Eos % (Auto) (0-4) % Baso % (Auto) (0-2) % Lymph # (Auto) (1.2-4.9) X10*3/uL [place] # (Auto) (0.1-1.2) X10*3/uL Eos # (Auto) (0.0-0.4) X10*3/uL Baso # (Auto) (0.0-0.2) X10*3/uL Abs Immat Gran (auto) (0.00-0.03) X10*3/uL Absolute Neuts (auto) (2.0-8.3) x10*3/uL Absolute Nucleated RBC (0.0-0.012) X10*3/uL Nucleated RBC % (auto) (0.0-0.2) /100WBC PT 13.4 H (9.9-13.0) SEC INR 1.2 H (0.9-1.1) Sodium (135-145) mmol/L Potassium (3.3-5.1) mmol/L Chloride (96-108) mmol/L Carbon Dioxide (22-29) mmol/L Anion Gap (12-20) BUN (9-16) mg/dL Creatinine (0.5-1.4) mg/dL Estim Creat Clear Calc Estimated GFR Random Glucose (60-115) mg/dL Calcium (8.4-10.2) mg/dL Magnesium (1.6-2.6) mg/dL Total Bilirubin (0.0-1.0) mg/dL Direct Bilirubin (0.0-0.5) mg/dL AST (5-37) U/L ALT (0-40) U/L Alkaline Phosphatase (39-117) U/L Troponin I High Sens (<3.5-35.0) ng/L Total Protein (6.5-8.0) g/dL Albumin (3.5-5.0) g/dL Lipase (8-78) U/L Ethyl Alcohol < 10 mg/dL COVID-19 (ERIN) Negative (Negative) COVID-19 Clin Com See Note Imaging Data CT scan - abdomen: Radiologist's impression: FINDINGS: LUNG BASES: Minimal dependent atelectasis. Small foci of calcific atherosclerosis in the coronary arteries. There is wall thickening the distal esophagus with mild fat stranding, concerning for esophagitis. The wall thickening appears irregular and stricturing or nodularity are possible.? LIVER, GALLBLADDER, AND BILIARY TREE: Relative hypoattenuation of the hepatic parenchyma is consistent with steatosis. No focal lesions are identified. Liver is normal in size and contour. No biliary ductal dilatation. The gallbladder is unremarkable with no evidence of radiopaque gallstones, gallbladder wall thickening, or obvious pericholecystic inflammatory changes.? PANCREAS: Moderate pancreatic atrophy.? SPLEEN: Unremarkable.? ADRENAL GLANDS: Unremarkable.? KIDNEYS AND URETERS: There is a 4 cm fluid density (0 Hounsfield unit) cyst at the anterior cortex of the left kidney. No recommend imaging follow-up. No suspicious lesions. Kidneys normal in size and contour with normal cortical thickness. No nephrolithiasis or hydronephrosis. Ureters are normal in course and caliber.? BLADDER: Unremarkable. Scar tissue and calcifications are evident in the space of Retzius? just anterior to the bladder. GASTROINTESTINAL TRACT: As noted above, there is wall thickening and fat stranding at the distal esophagus. Stomach, small bowel, and colon are normal in caliber. No additional areas of inflammation are identified. Appendix is normal. No intraperitoneal free fluid or free air. ABDOMINAL WALL: No significant hernia is appreciated.? LYMPH NODES: Normal. VASCULAR: Atherosclerotic calcifications are present in the abdominal aorta. No aneurysmal dilatation. PELVIC VISCERA: The prostate and seminal vesicles are unremarkable.? OSSEOUS STRUCTURES: Status post posterior and interbody fusion at L3-L4. No acute osseous findings.? CT/CT abdomen pelvis wo con IMPRESSION: 1. Irregular wall thickening the distal esophagus with adjacent fat stranding. Although this could correspond to esophagitis, further assessment with a barium swallow study or endoscopy is advised to exclude esophageal neoplasm. 2. Hepatic steatosis. ? Fleischner guidelines were followed. Discharge Plan Discharge Clinical Impression: Abdominal pain, epigastric, Vomiting, Esophageal burn Patient Disposition: Home, Self-Care Instructions: Esophagitis (ED) Additional Instructions: Please follow-up with your primary care physician tomorrow. If you have any worsening or new symptoms, please return to the emergency room or call 911 Prescriptions: New sucralfate [Carafate] 1 gram tablet 1 g PO BID Qty: 30 0RF No Action omeprazole 20 mg capsule,delayed release(DR/EC) 20 mg PO DAILY Qty: 30 3RF ferrous sulfate 300 mg (60 mg iron)/5 mL liquid 300 mg PO DAILY 30 Days Qty: 150 3RF cholecalciferol (vitamin D3) 50 mcg (2,000 unit) capsule 50 mcg PO DAILY 90 Days Qty: 90 1RF simethicone [Gas Relief (simethicone)] 125 mg tablet,chewable 125 mg PO BID-QID PRN (Reason: abdominal distention) 30 Days Qty: 90 1RF sulfamethoxazole-trimethoprim [Bactrim DS] 800-160 mg tablet 1 tab PO BID 5 Days Qty: 10 0RF loperamide [Anti-Diarrheal (loperamide)] 2 mg tablet 2 mg PO QID PRN (Reason: loose stool) 30 Days Qty: 120 1RF ondansetron 4 mg tablet,disintegrating 4 mg PO Q8H PRN (Reason: nausea and vomiting) 25 Days Qty: 30 0RF verapamil 40 mg Tablet 40 mg PO TID Qty: 21 0RF Protocol: Hold for SBP/HR < HOLD for SBP < : 90 HOLD for HR < : 60 nicotine (polacrilex) 2 mg Gum 2 mg buccal Q2H PRN (Reason: Nicotine Cravings) Qty: 30 4RF atenolol 25 mg Tablet 25 mg PO DAILY Qty: 7 0RF Protocol: Hold for SBP/HR < HOLD for SBP < : 90 HOLD for HR < : 60 baclofen 10 mg Tablet 10 mg PO TID Qty: 21 4RF mirtazapine 15 mg Tablet 45 mg PO BEDTIME Qty: 7 0RF lidocaine [Lidocaine Pain Relief] 4 % Adhesive Patch,Medicated 1 patch transdermal DAILY Qty: 7 0RF Protocol: Apply to: Apply to: back sucralfate 1 gram Tablet 1 g PO QIDACHS Qty: 120 0RF melatonin 3 mg Tablet 3 mg PO BEDTIME Qty: 7 0RF amitriptyline 50 mg Tablet 50 mg PO BEDTIME Qty: 7 4RF benztropine 1 mg Tablet 1 mg PO BID Qty: 14 0RF fluticasone propionate 50 mcg/actuation [place],Suspension 2 spray intranasal DAILY Qty: 1 4RF fluphenazine HCl 5 mg Tablet 5 mg PO BEDTIME Qty: 7 4RF aripiprazole [Abilify] 5 mg Tablet 5 mg PO DAILY Qty: 7 4RF clonazepam 1 mg tablet 1 tab PO BID Qty: 14 4RF tamsulosin 0.4 mg capsule 1 cap PO DAILY Qty: 7 4RF zolpidem [Ambien] 10 mg Tablet 10 mg PO BEDTIME PRN (Reason: Sleep) 30 Days Qty: 7 4RF Narcan 4 mg/actuation spray,non-aerosol 4 mg intranasal Q2M PRN (Reason: opioid overdose) Qty: 2 0RF Rx Instructions: spray 1 dose into ONE nostril; alternate nostrils w each dose until help arrives zolpidem [Ambien] 10 mg tablet 10 mg PO BEDTIME PRN (Reason: insomnia) Qty: 7 4RF clonazepam [Klonopin] 1 mg tablet 1 mg PO BID Qty: 14 4RF sildenafil 100 mg tablet 100 mg PO DAILY PRN (Reason: sexual activity) 30 Days Qty: 30 1RF Rx Instructions: administer 60 minutes before intended activity sennosides-docusate sodium [Senna with Docusate Sodium] 8.6-50 mg tablet 2 tab-cap PO BEDTIME 30 Days Qty: 60 0RF Referrals: Carlitos Harrell [Physician] - 2 days
[2021-06-29 06:00] VITALS: BP 119/90; PULSE 88; RESP 15; O2SAT 99
[2021-06-29 06:11] LABS: Basophils Percent Auto 0.5 % (0-2); Eosinophils Absolute Auto 0.2 X10*3/uL (0.0-0.4); Eosinophils Percent Auto 3.1 % (0-4); Hematocrit 41.3 % (42.0-52.0); Hemoglobin 13.9 g/dl (14.0-18.0); Imm Gran Abs Auto 0.04 X10*3/uL (0.00-0.03); Imm Gran Pct Auto 0.5 % (0.0-0.4); Lymphocytes Absolute Auto 2.6 X10*3/uL (1.2-4.9); Lymphocytes Percent Auto 34.5 % (20-40); MANUAL DIFF FLAG NO; Mean Corpuscular HGB Conc 33.7 g/dl (31.0-36.0); Mean Corpuscular Hemoglobin 29.3 pg (27.0-33.0); Mean Corpuscular Volume 87.1 fL (80.0-98.0); Mean Platelet Volume 9.4 fL (9.4-12.4); Monocytes Absolute Auto 0.7 X10*3/uL (0.1-1.2); Monocytes Percent Auto 8.7 % (2-11); Neutrophils Absolute Auto 3.9 x10*3/uL (2.0-8.3); Neutrophils Percent Auto 52.7 % (45-73); Platelet Count 276 X10*3/uL (160-400); Red Blood Count 4.74 X10*6/uL (4.60-5.80); Red Cell Distribution Width 14.6 % (11.0-16.0); White Blood Count 7.5 X10*3/uL (4.8-10.8)
[2021-06-29 06:26] LABS: COVID-19 Test Negative (Negative); Ethanol < 10 mg/dL
[2021-06-29 06:29] LABS: Alanine Aminotransferase 17 U/L (0-40); Alkaline Phosphatase 97 U/L (39-117); Anion Gap 14 (12-20); Aspartate Amino Transferase 17 U/L (5-37); Bilirubin Direct 0.2 mg/dL (0.0-0.5); Bilirubin Total 0.7 mg/dL (0.0-1.0); Blood Urea Nitrogen 6 mg/dL (9-16); Calcium 9.6 mg/dL (8.4-10.2); Carbon Dioxide 30 mmol/L (22-29); Chloride 98 mmol/L (96-108); Creatinine Clr Calc Pharmacy 80.6; Estimated Glomerular Filt Rate > 60; Glucose Random 145 mg/dL (60-115); INTERNATIONAL NORM RATIO 1.2 (0.9-1.1); Lipase 12 U/L (8-78); Magnesium 2.2 mg/dL (1.6-2.6); Potassium 2.9 mmol/L (3.3-5.1); Prothrombin Time 13.4 SEC (9.9-13.0); Sodium 139 mmol/L (135-145); Total Protein 7.5 g/dL (6.5-8.0)
[2021-06-29] MEDS: 0.9 % Sodium Chloride 1,000 ML 999 ML IVCONT (06:35)
[2021-06-29] MEDS: ondansetron HCL 4 MG/2 ML VIAL IVPUSH (06:35)
[2021-06-29] MEDS: Famotidine/PF 20 MG/2 ML VIAL IVPUSH (06:35)
[2021-06-29 07:05] VITALS: BP 139/92; PULSE 86; RESP 18; TEMP 36.8; O2SAT 96
[2021-06-29] MEDS: Lidocaine HCl Viscous 2 % 15 ML SOLUTION MUCOUS MEM (07:08)
[2021-06-29] MEDS: Magnesium Hydrox/Alum Hydrox 30 ML ORAL.SUSP PO (07:08)
[2021-06-29] MEDS: Potassium Chloride Packet 20 MEQ PACKET 40 MEQ PO (07:09)
== END 2021-06-29 08:10 | disposition home or self-care (01) ==
PROVIDERS: Emergency Provider Emergency Medicine; PCP Internal Medicine
DX: R10.13 Epigastric pain (principal); R11.2 Nausea with vomiting, unspecified; K21.9 Gastro-esophageal reflux disease without esophagitis; Z20.822 Contact with and (suspected) exposure to COVID-19; F10.20 Alcohol dependence, uncomplicated; Y90.0 Blood alcohol level of less than 20 mg/100 ml; F17.200 Nicotine dependence, unspecified, uncomplicated
CPT/HCPCS: 36415; 74176; 80048; 80076; 82077; 83690; 83735; 84484; 85025; 85610; 87635; 93005; 96361; 96374; 96375; 99284; 99285; J2405

== ENCOUNTER 2021-07-01 00:03 | Emergency (ER) | payer MEDICAID, SELFPAY ==
--- NOTE | ~2021-07-01 | CT_ITS ---
EXAMINATION: CT ABDOMEN AND PELVIS WITHOUT CONTRAST CLINICAL INFORMATION: Flank pain. Rule out kidney stone. COMPARISON: 06/29/2021 TECHNIQUE: Multidetector volumetric imaging was performed from the superior aspect of the liver through the pubic symphysis. Sagittal and coronal reformatted images were obtained on the technologist's workstation. This CT examination was performed using dose optimization techniques as appropriate, variously including the following: *Automated exposure control *Adjustment of mA and/or kV according to patient size (this includes techniques or standardized protocols for targeted exams where dose is matched to indication/reason for exam; i.e. extremities or head) *Use of iterative reconstruction technique DLP: 676 mGy-cm FINDINGS: LUNG BASES: Mild dependent atelectasis. Wall thickening is again noted in the distal esophagus LIVER, GALLBLADDER, AND BILIARY TREE: Relative hypoattenuation of the hepatic parenchyma is again noted, consistent with steatosis. No focal lesions are identified. Liver is normal in size and contour. No biliary ductal dilatation. The gallbladder is unremarkable with no evidence of radiopaque gallstones, gallbladder wall thickening, or obvious pericholecystic inflammatory changes. PANCREAS: Moderate pancreatic atrophy. SPLEEN: Unremarkable. ADRENAL GLANDS: Unremarkable. KIDNEYS AND URETERS: There is a 4 cm fluid density (1 Hounsfield unit) cyst at the anterior cortex of the left kidney, interpolar region. No recommend imaging follow-up. No suspicious lesions. Kidneys are normal in size and contour with normal cortical thickness. No nephrolithiasis or hydronephrosis. Ureters are normal in course and caliber. BLADDER: Bess catheter terminates in the bladder. Bladder is partially decompressed with a thin wall. Chronic scar tissue and calcifications are present in the space of Retzius. GASTROINTESTINAL TRACT: Distal esophageal wall thickening is again noted. Stomach, small bowel, and colon are normal in caliber. No additional areas of inflammation are identified. Appendix is normal. No intraperitoneal free fluid or free air. ABDOMINAL WALL: No significant hernia is appreciated. LYMPH NODES: Normal. VASCULAR: Atherosclerotic calcifications are present in the abdominal aorta. No aneurysmal dilatation. PELVIC VISCERA: The prostate and seminal vesicles are unremarkable. OSSEOUS STRUCTURES: Status post instrumented and interbody fusion in the mid lumbar spine. No acute osseous abnormalities. Minimal osteoarthritis in the hips. No acute osseous findings. CT/CT abdomen pelvis wo con IMPRESSION: No acute intra-abdominal or intrapelvic abnormalities to correlate with the patient's history of flank pain. No nephrolithiasis or hydronephrosis. Distal esophageal wall thickening. As previously noted this could correspond to esophagitis, though further assessment with a barium swallow study or endoscopy is advised to exclude esophageal neoplasm. Fleischner guidelines were followed.
[2021-07-01 00:21] VITALS: BP 110/70; PULSE 68; O2SAT 98
[2021-07-01 00:31] VITALS: BP 119/68; PULSE 86; RESP 18; TEMP 36.7; O2SAT 96; BMI 30.4
--- NOTE | 2021-07-01 03:12 | ED.GENADULT ---
HPI - General Adult General Chief complaint: General Medical Stated complaint: unable to urinate Time Seen by Provider: 07/01/21 03:12 Source: patient Mode of arrival: ambulatory Limitations: no limitations History of Present Illness HPI narrative: 51-year-old male who presents emergency department for evaluation of bilateral flank pain and difficulty urinating. he states he has had the symptoms for approximately 3 days. He states that today, the symptoms got worse he states that he has pain in his lower back bilaterally, this is a constant, sharp pain. He states that feels the urge to urinate but is unable to make urine. He denied fever, chills. He states that he had nausea and has vomited multiple times. he states that 3 or 4 years prior had similar symptoms and required a Bess catheter. MD complaint: bilateral footpain Onset (ago): day(s) (3) Location: abdomen ( bilateral flank) Radiation: non-radiation Severity: severe Severity scale (1-10): 9 Quality: aching Pain Consistency: constant Associated symptoms: nausea/vomiting and other ( inability urinate) Treatments prior to arrival: none Related Data Previous Rx's Medication Instructions Recorded amitriptyline 50 mg tablet 50 mg PO BEDTIME #7 tab 11/19/20 aripiprazole 5 mg tablet (Abilify) 5 mg PO DAILY #7 tab 11/19/20 atenolol 25 mg tablet 25 mg PO DAILY #7 tab 11/19/20 baclofen 10 mg tablet 10 mg PO TID #21 tab 11/19/20 benztropine 1 mg tablet 1 mg PO BID #14 tab 11/19/20 clonazepam 1 mg tablet 1 tab PO BID #14 tab 11/19/20 clonazepam 1 mg tablet (Klonopin) 1 mg PO BID #14 tab 11/19/20 fluphenazine HCl 5 mg tablet 5 mg PO BEDTIME #7 tab 11/19/20 fluticasone propionate 50 2 spray INTRANASAL DAILY #1 g 11/19/20 mcg/actuation nasal spray,suspension lidocaine 4 % topical patch 1 patch TRANSDERMAL DAILY #7 ea 11/19/20 (Lidocaine Pain Relief) melatonin 3 mg tablet 3 mg PO BEDTIME #7 tab 11/19/20 mirtazapine 15 mg tablet 45 mg PO BEDTIME #7 tab 11/19/20 naloxone 4 mg/actuation nasal 4 mg INTRANASAL Q2M PRN #2 ea 11/19/20 spray (Narcan) nicotine (polacrilex) 2 mg gum 2 mg BUCCAL Q2H PRN #30 ea 11/19/20 sucralfate 1 gram tablet 1 g PO QIDACHS #120 tab 11/19/20 tamsulosin 0.4 mg capsule 1 cap PO DAILY #7 cap 11/19/20 verapamil 40 mg tablet 40 mg PO TID #21 tab 11/19/20 zolpidem 10 mg tablet (Ambien) 10 mg PO BEDTIME PRN #7 tab 11/19/20 zolpidem 10 mg tablet (Ambien) 10 mg PO BEDTIME PRN 30 Days #7 tab 11/19/20 sildenafil 100 mg tablet 100 mg PO DAILY PRN 30 Days #30 tab 01/30/21 omeprazole 20 mg capsule,delayed 20 mg PO DAILY #30 cap 02/19/21 release ferrous sulfate 300 mg (60 mg 300 mg (5 mL) PO DAILY 30 Days 03/12/21 iron)/5 mL oral liquid #150 ml sennosides 8.6 mg-docusate sodium 2 tab-cap PO BEDTIME 30 Days #60 04/15/21 50 mg tablet (Senna with Docusate tab Sodium) cholecalciferol (vitamin D3) 50 50 mcg PO DAILY 90 Days #90 cap 04/26/21 mcg (2,000 unit) capsule simethicone 125 mg chewable tablet 125 mg PO BID-QID PRN 30 Days #90 05/02/21 (Gas Relief (simethicone)) tab sulfamethoxazole 800 1 tab PO BID 5 Days #10 tab 05/21/21 mg-trimethoprim 160 mg tablet (Bactrim DS) loperamide 2 mg tablet 2 mg PO QID PRN 30 Days #120 tab 06/11/21 (Anti-Diarrheal (loperamide)) ondansetron 4 mg disintegrating 4 mg PO Q8H PRN 25 Days #30 tab 06/24/21 tablet sucralfate 1 gram tablet (Carafate) 1 g PO BID #30 tab 06/29/21 oxycodone 5 mg tablet 5 mg PO Q4H PRN #10 tab 07/01/21 Allergies Allergy/AdvReac Type Severity Reaction Status Date / Time trazodone [TRAZODONE] Allergy Severe FACIAL Verified 06/23/21 08:15 SWELLING, swelling cat dander [CATS] Allergy Intermediate FACIAL Verified 06/23/21 08:15 ITCHING doxepin [DOXEPIN] Allergy Intermediate WEIGHT Verified 06/23/21 08:15 GAIN/LEG SWELLING Iodinated Contrast Media Allergy Intermediate ITCHING Verified 06/23/21 08:15 [IV DYE, IODINE CONTAINING CONTRAST ] nitroglycerin [NITROGLYCERIN] Allergy Unknown UNKNOWN Verified 06/23/21 08:15 tramadol [TRAMADOL] Allergy Unknown UNKNOWN, Verified 06/23/21 08:15 dry mouth ibuprofen [From MOTRIN] AdvReac Intermediate GI UPSET Verified 06/23/21 08:15 quetiapine [From SEROQUEL] AdvReac Intermediate FACIAL Verified 06/23/21 08:15 SWELLING aspirin [ASPIRIN] AdvReac Mild Stomach Verified 06/23/21 08:15 Upset Ibuprofen Allergy Unknown stomach Uncoded 01/30/21 10:12 ache IV contrast Allergy Unknown Unknown Uncoded 01/30/21 10:12 Motrin Allergy Unknown stomach Uncoded 01/30/21 10:12 pain Review of Systems Review of Systems: Yes all other systems are reviewed and are negative PMF Past Medical History Medical History Alcohol dependence Anxiety Chest pain Derangement of symphysis pubis Dysphagia GERD (gastroesophageal reflux disease) Major depressive disorder, recurrent severe without psychotic features Opioid abuse Weight loss Surgical History H/O umbilical hernia repair History of colonoscopy History of cystoscopy Family History Family History Father HTN (hypertension) Diabetes Mother HTN (hypertension) Stroke Alzheimer disease Heart disease Social History Social History Household Members: None Housing: Homeless Do you presently have visiting nurse or other home services: No Alcohol intake: never Patient Tobacco Use Status: Current everyday Tobacco user Tobacco use type: Cigarette Cigarette Packs Per Day: 1 Cigarettes Per Day: 20.0 Years Smoked: 9 Second Hand Smoke Exposure: Yes Substance Use Type: Crack/Cocaine Advance Directives: Yes Advance Directives on File: Yes Advance Directives Date on File: 02/24/20 service: No Current occupational status: disabled Sexual orientation: Straight/Heterosexual Physical Exam ED Vital Signs: Vital Signs - 24 hr 07/01/21 00:31 07/01/21 03:32 07/01/21 05:17 Temperature 98.1 F 98.1 F Pulse Rate 86 74 80 Respiratory Rate 18 14 16 Blood Pressure 119/68 127/72 134/68 Pulse Oximetry 96 96 98 BMI result Body Mass Index 30.4 Const Other: awake, alert, male patient, he appears to be in distress secondary to his bilateral flank pain is inability urinate, he has gotten up several times to urinate but has not been able to produce urine. HENGA Head: Yes normal to inspection, Yes normocephalic and Yes atraumatic Ears: external ears normal General nose exam: Normal external nose present Face and sinus: Yes normal facial exam Mouth: Normal oral and palatal mucosa present Throat: Yes posterior oropharynx normal Eyes General: appearance normal, both eyes and all related structures Pupils: Equal, round and reactive pupils present Neck Neck: Yes normal visual inspection, Yes no lymphadenopathy, Yes trachea midline and Yes supple Chest Chest palpation & inspection: normal inspection of the chest and normal palpation of entire chest wall Resp Effort & Inspection: normal respiratory effort and able to speak in complete sentences Auscultation: clear to auscultation bilaterally Cardio Rate: regular rate Rhythm: regular rhythm Heart sounds: S1 normal heart sound present, S2 normal heart sound present and no murmurs GI Inspection: Yes normal to inspection Palpation (GI): Soft to palpation, Tenderness to palpation present (GI) other ( Moderate diffuse tenderness) and no guarding Auscultation: normal bowel sounds General: Yes CVA tenderness bilateral ( mild) Back/Spine/Pelvis Back: CVA tenderness Skin General skin exam: no rashes or lesions noted Neuro Cranial nerves: Yes CN's II-XII intact bilaterally and Yes Equal, round and reactive pupils present Cognition (Neuro): normal cognition Motor exam (neuro): 5/5 motor strength present throughout Extrem General: Yes normal to inspection Psych Appearance: grossly normal Speech and movement: Normal speech and movement present Affect: normal affect Attitude: cooperative Thought process: Normal thought process present Thought content: Normal thought content present Course Course Course Narrative: 51-year-old male who presents emergency department for evaluation of inability urinate for 3-4 days and bilateral flank pain. The patient's vital signs were normal . His abdominal exam revealed diffuse abdominal tenderness and mild bilateral flank pain. patient's bladder scan revealed 200 cc of urine in his bladder despite this he was unable to urinate. Bess catheter was placed and the patient put out proximally 300 cc of urine. I did order laboratory evaluation to include CBC, CMP, urinalysis, CT scan of the abdomen pelvis without IV contrast. Patient was ordered to get Zofran 4 mg IV for his nausea and vomiting and morphine 4 mg IV for his flank pain. 0623: laboratory evaluation: Elevated WBC 50659, normal BUN of 13 with an elevated creatinine of 1.57, urinalysis revealed 1+ blood, microscopic revealed 5-9 RBCs, 1-4 WBCs, 1+ squamous cells, 2+ bacteria. COVID-[address] scan abdomen pelvis without IV contrast revealed no clear cause for the patient's abdominal pain/ flank pain or urinary retention. The patient was given oxycodone 5 mg orally for his pain. Patient will be discharged home with a Bess catheter in place and he will need to follow-up with our on-call urologist for evaluation 4 days and possibly have the Bess removed. Medical Decision Making Lab Data Result diagrams: 07/01/21 03:25 07/01/21 03:25 Labs: Lab Results 07/01/21 07/01/21 07/01/21 Range/Units 03:23 03:25 03:25 WBC 11.5 H (4.8-10.8) X10*3/uL RBC 4.23 L (4.60-5.80) X10*6/uL Hgb 12.4 L (14.0-18.0) g/dl Hct 37.2 L (42.0-52.0) % MCV 87.9 (80.0-98.0) fL MCH 29.3 (27.0-33.0) pg MCHC 33.3 (31.0-36.0) g/dl RDW 14.7 (11.0-16.0) % Plt Count 246 (160-400) X10*3/uL MPV 9.4 (9.4-12.4) fL Immature Gran % (Auto) 0.3 (0.0-0.4) % Neut % (Auto) 68.1 (45-73) % Lymph % (Auto) 21.6 (20-40) % [place] % (Auto) 8.7 (2-11) % Eos % (Auto) 1.0 (0-4) % Baso % (Auto) 0.3 (0-2) % Lymph # (Auto) 2.5 (1.2-4.9) X10*3/uL [place] # (Auto) 1.0 (0.1-1.2) X10*3/uL Eos # (Auto) 0.1 (0.0-0.4) X10*3/uL Baso # (Auto) 0.0 (0.0-0.2) X10*3/uL Abs Immat Gran (auto) 0.04 H (0.00-0.03) X10*3/uL Absolute Neuts (auto) 7.8 (2.0-8.3) x10*3/uL Absolute Nucleated RBC 0.000 (0.0-0.012) X10*3/uL Nucleated RBC % (auto) 0.0 (0.0-0.2) /100WBC Sodium 135 (135-145) mmol/L Potassium 3.8 D (3.3-5.1) mmol/L Chloride 95 L (96-108) mmol/L Carbon Dioxide 25 (22-29) mmol/L Anion Gap 19 (12-20) BUN 13 D (9-16) mg/dL Creatinine 1.57 H (0.5-1.4) mg/dL Estim Creat Clear Calc 53.9 Estimated GFR 46 Random Glucose 114 (60-115) mg/dL Calcium 9.2 (8.4-10.2) mg/dL Total Bilirubin 0.6 (0.0-1.0) mg/dL AST 48 H D (5-37) U/L ALT 22 (0-40) U/L Alkaline Phosphatase 83 (39-117) U/L Total Protein 7.3 (6.5-8.0) g/dL Albumin 3.9 (3.5-5.0) g/dL Urine Color YELLOW Urine Appearance CLEAR Urine pH 6.5 (5.0-8.0) Ur Specific [place] 1.020 (1.005-1.025) Urine Protein TRACE (NEG-TRACE) MG/DL Urine Glucose (UA) NEG (NEG) MG/DL Urine Ketones NEG (NEG) MG/DL Urine Blood 1+ H (NEG) Urine Nitrite NEG (NEG) Ur Leukocyte Esterase NEG (NEG) Urine RBC 5-9 H (0) /HPF Urine WBC 1-4 (0-4) /HPF Ur Squamous Epith Cells 1+ /LPF Urine Bacteria 2+ /LPF Hyaline Casts 1-4 /LPF Granular Casts 1-4 /LPF Urine Mucus 2+ /LPF Discharge Plan Discharge Clinical Impression: Acute urinary retention, Acute flank pain Patient Disposition: Home, Self-Care Instructions: Urinary Retention in Men (ED) Additional Instructions: Your CT scan of your abdomen pelvis did not reveal any clear cause for your abdominal pain I am discharging you to home with the Bess catheter in place. You will need to follow-up with our urologist on-call in in 4 days for re-evaluation and possibly have the Bess catheter removed. Take ibuprofen 200 mg pills, 3 pills every 6 hours as needed for pain. Take Tylenol (acetaminophen) 500 mg pills, 2 pills every 4-6 hours as needed for pain. For pain not relieved by ibuprofen or Tylenol take oxycodone 5 mg pills, 1 pill every 4 hours as needed for pain. Do not drive or work while taking this medication since they can cause sleepiness. Oxycodone is a narcotic medication that can be addicting. If you are concerned about addiction you can ask the pharmacist for less pills or do not get this prescription filled. Please return to the emergency department if your symptoms get worse or if you develop any symptoms that are concerning to you. Prescriptions: New oxycodone 5 mg tablet 5 mg PO Q4H PRN (Reason: pain) Qty: 10 0RF Rx Instructions: Patient may request partial fill No Action omeprazole 20 mg capsule,delayed release(DR/EC) 20 mg PO DAILY Qty: 30 3RF ferrous sulfate 300 mg (60 mg iron)/5 mL liquid 300 mg PO DAILY 30 Days Qty: 150 3RF cholecalciferol (vitamin D3) 50 mcg (2,000 unit) capsule 50 mcg PO DAILY 90 Days Qty: 90 1RF simethicone [Gas Relief (simethicone)] 125 mg tablet,chewable 125 mg PO BID-QID PRN (Reason: abdominal distention) 30 Days Qty: 90 1RF sulfamethoxazole-trimethoprim [Bactrim DS] 800-160 mg tablet 1 tab PO BID 5 Days Qty: 10 0RF loperamide [Anti-Diarrheal (loperamide)] 2 mg tablet 2 mg PO QID PRN (Reason: loose stool) 30 Days Qty: 120 1RF ondansetron 4 mg tablet,disintegrating 4 mg PO Q8H PRN (Reason: nausea and vomiting) 25 Days Qty: 30 0RF verapamil 40 mg Tablet 40 mg PO TID Qty: 21 0RF Protocol: Hold for SBP/HR < HOLD for SBP < : 90 HOLD for HR < : 60 nicotine (polacrilex) 2 mg Gum 2 mg buccal Q2H PRN (Reason: Nicotine Cravings) Qty: 30 4RF atenolol 25 mg Tablet 25 mg PO DAILY Qty: 7 0RF Protocol: Hold for SBP/HR < HOLD for SBP < : 90 HOLD for HR < : 60 baclofen 10 mg Tablet 10 mg PO TID Qty: 21 4RF mirtazapine 15 mg Tablet 45 mg PO BEDTIME Qty: 7 0RF lidocaine [Lidocaine Pain Relief] 4 % Adhesive Patch,Medicated 1 patch transdermal DAILY Qty: 7 0RF Protocol: Apply to: Apply to: back sucralfate 1 gram Tablet 1 g PO QIDACHS Qty: 120 0RF melatonin 3 mg Tablet 3 mg PO BEDTIME Qty: 7 0RF amitriptyline 50 mg Tablet 50 mg PO BEDTIME Qty: 7 4RF benztropine 1 mg Tablet 1 mg PO BID Qty: 14 0RF fluticasone propionate 50 mcg/actuation [place],Suspension 2 spray intranasal DAILY Qty: 1 4RF fluphenazine HCl 5 mg Tablet 5 mg PO BEDTIME Qty: 7 4RF aripiprazole [Abilify] 5 mg Tablet 5 mg PO DAILY Qty: 7 4RF clonazepam 1 mg tablet 1 tab PO BID Qty: 14 4RF tamsulosin 0.4 mg capsule 1 cap PO DAILY Qty: 7 4RF zolpidem [Ambien] 10 mg Tablet 10 mg PO BEDTIME PRN (Reason: Sleep) 30 Days Qty: 7 4RF Narcan 4 mg/actuation spray,non-aerosol 4 mg intranasal Q2M PRN (Reason: opioid overdose) Qty: 2 0RF Rx Instructions: spray 1 dose into ONE nostril; alternate nostrils w each dose until help arrives zolpidem [Ambien] 10 mg tablet 10 mg PO BEDTIME PRN (Reason: insomnia) Qty: 7 4RF clonazepam [Klonopin] 1 mg tablet 1 mg PO BID Qty: 14 4RF sucralfate [Carafate] 1 gram tablet 1 g PO BID Qty: 30 0RF sildenafil 100 mg tablet 100 mg PO DAILY PRN (Reason: sexual activity) 30 Days Qty: 30 1RF Rx Instructions: administer 60 minutes before intended activity sennosides-docusate sodium [Senna with Docusate Sodium] 8.6-50 mg tablet 2 tab-cap PO BEDTIME 30 Days Qty: 60 0RF
[2021-07-01 03:30] LABS: Basophils Percent Auto 0.3 % (0-2); Eosinophils Absolute Auto 0.1 X10*3/uL (0.0-0.4); Hematocrit 37.2 % (42.0-52.0); Hemoglobin 12.4 g/dl (14.0-18.0); Imm Gran Abs Auto 0.04 X10*3/uL (0.00-0.03); Imm Gran Pct Auto 0.3 % (0.0-0.4); Lymphocytes Absolute Auto 2.5 X10*3/uL (1.2-4.9); Lymphocytes Percent Auto 21.6 % (20-40); MANUAL DIFF FLAG NO; Mean Corpuscular HGB Conc 33.3 g/dl (31.0-36.0); Mean Corpuscular Hemoglobin 29.3 pg (27.0-33.0); Mean Corpuscular Volume 87.9 fL (80.0-98.0); Mean Platelet Volume 9.4 fL (9.4-12.4); Monocytes Percent Auto 8.7 % (2-11); Neutrophils Absolute Auto 7.8 x10*3/uL (2.0-8.3); Neutrophils Percent Auto 68.1 % (45-73); Platelet Count 246 X10*3/uL (160-400); Red Blood Count 4.23 X10*6/uL (4.60-5.80); Red Cell Distribution Width 14.7 % (11.0-16.0); White Blood Count 11.5 X10*3/uL (4.8-10.8)
[2021-07-01 03:32] VITALS: BP 127/72; PULSE 74; RESP 14; O2SAT 96
[2021-07-01 03:33] LABS: Appearance Urine CLEAR; Color Urine YELLOW; Glucose Urine UA NEG (NEG); Leukocyte Esterase Urine NEG (NEG); Nitrite Urine NEG (NEG); PH 6.5 (5.0-8.0); UACC Culture Trigger NO; Urine Blood 1+ (NEG); Urine Ketones NEG (NEG); Urine Protein TRACE MG/DL (NEG-TRACE)
[2021-07-01] MEDS: Morphine Sulfate 4 MG/ML CARTRIDGE IVPUSH (03:37)
[2021-07-01] MEDS: ondansetron HCL 4 MG/2 ML VIAL IVPUSH (03:37)
[2021-07-01] MEDS: 0.9 % Sodium Chloride 1,000 ML 999 ML IV (03:37)
[2021-07-01 03:40] LABS: Bacteria Urine 2+ /LPF; Mucus Urine 2+ /LPF; Squamous Epithelial Cell Urine 1+ /LPF
[2021-07-01 03:58] LABS: Alanine Aminotransferase 22 U/L (0-40); Albumin Level 3.9 g/dL (3.5-5.0); Alkaline Phosphatase 83 U/L (39-117); Anion Gap 19 (12-20); Aspartate Amino Transferase 48 U/L (5-37); Bilirubin Total 0.6 mg/dL (0.0-1.0); Blood Urea Nitrogen 13 mg/dL (9-16); Calcium 9.2 mg/dL (8.4-10.2); Carbon Dioxide 25 mmol/L (22-29); Chloride 95 mmol/L (96-108); Creatinine Clr Calc Pharmacy 53.9; Estimated Glomerular Filt Rate 46; Glucose Random 114 mg/dL (60-115); Potassium 3.8 mmol/L (3.3-5.1); Sodium 135 mmol/L (135-145); Total Protein 7.3 g/dL (6.5-8.0)
[2021-07-01 05:17] VITALS: BP 134/68; PULSE 80; RESP 16; TEMP 36.7; O2SAT 98
[2021-07-01 06:22] VITALS: PULSE 88; RESP 18; O2SAT 96
[2021-07-01] MEDS: oxyCODONE HCl Immed Release 5 MG TABLET PO (06:35)
--- NOTE | 2021-07-01 06:40 | PC.NURSE ---
I assumed nursing care of Jerson upon his arrival to bed 4 from the waiting room./ He presents for evaluation of abdominal pain and inability to void. Shortly after arriving to bed 4 we bladder scanned Jerson and found approximately 225cc urine. Pt attempted multiple times following this scan to void unsuccessfully. With verbal permission from Dr. Long I placed a Vargas catheter and obtained approximately 300cc clear yellow urine out. Spec sent to lab. Since that time the pt has been alert, oriented x 3, extremely needy - constantly yelling out to staff who are passing by his room, referring to every staff member as doc despite continuously being reminded that they are not doctors. He complains of diffuse abdominal pain, somewhat relieved after Vargas placed and urine drained. The pt ambulated to and from the bathroom multiple times - maybe ten times - while Vargas was in place in an attempt to have a bowel movement. Many of the times he ambulated to the bathroom in order to have a bowel movement he did not actually have one. He has been discharged. A leg bag was placed and the pt was adequately educated on at home Vargas care. he verbalized an understanding. he vebalized an understanding of all DC orders and ambulated out of the ED independently and with steady gait. Prior to DC we reviewed proper uses and indications for PO Oxycodone and he verbalized an understanding.
== END 2021-07-01 06:44 | disposition home or self-care (01) ==
PROVIDERS: Emergency Provider Emergency Medicine Emergency Medical Services
DX: R33.9 Retention of urine, unspecified (principal); R10.9 Unspecified abdominal pain; F17.200 Nicotine dependence, unspecified, uncomplicated
CPT/HCPCS: 36415; 51702; 51798; 74176; 80053; 81001; 85025; 96361; 96374; 96375; 99284; 99285; J2270; J2405

== ENCOUNTER 2021-07-01 07:37 | Emergency (ER) | payer MEDICAID, SELFPAY ==
[2021-07-01 07:43] VITALS: BP 132/66; PULSE 82; RESP 18; TEMP 37; O2SAT 95
[2021-07-01 07:49] VITALS: BP 117/55; BP 130/79; PULSE 77; PULSE 90; RESP 16; TEMP 36.7; O2SAT 98; BMI 30.4
--- NOTE | 2021-07-01 08:18 | ED.MALEGU ---
HPI - Male Genitourinary General Chief complaint: General Medical Stated complaint: DELUCA CATH FEELS BLOCKED PER PT Time Seen by Provider: 07/01/21 07:55 Source: patient Mode of arrival: EMS Limitations: language barrier ( Urdu-speaking registered medical transcriptionist utilized) History of Present Illness HPI Narrative: Patient presents emergency department for evaluation of his Deluca catheter. He was just discharged about 1 hour prior to his arrival here. Patient had been experiencing urinary retention, difficulty urinating, bilateral flank pain for about 3 days. Reports a history of similar symptoms in the past requiring a Deluca catheter to be inserted. In addition he is having some nausea. he re-presented to the emergency room stating that wants the Deluca catheter removed because the straps attached to his leg for the leg bag are coming undone. Related Data Previous Rx's Medication Instructions Recorded amitriptyline 50 mg tablet 50 mg PO BEDTIME #7 tab 11/19/20 aripiprazole 5 mg tablet (Abilify) 5 mg PO DAILY #7 tab 11/19/20 atenolol 25 mg tablet 25 mg PO DAILY #7 tab 11/19/20 baclofen 10 mg tablet 10 mg PO TID #21 tab 11/19/20 benztropine 1 mg tablet 1 mg PO BID #14 tab 11/19/20 clonazepam 1 mg tablet 1 tab PO BID #14 tab 11/19/20 clonazepam 1 mg tablet (Klonopin) 1 mg PO BID #14 tab 11/19/20 fluphenazine HCl 5 mg tablet 5 mg PO BEDTIME #7 tab 11/19/20 fluticasone propionate 50 2 spray INTRANASAL DAILY #1 g 11/19/20 mcg/actuation nasal spray,suspension lidocaine 4 % topical patch 1 patch TRANSDERMAL DAILY #7 ea 11/19/20 (Lidocaine Pain Relief) melatonin 3 mg tablet 3 mg PO BEDTIME #7 tab 11/19/20 mirtazapine 15 mg tablet 45 mg PO BEDTIME #7 tab 11/19/20 naloxone 4 mg/actuation nasal 4 mg INTRANASAL Q2M PRN #2 ea 11/19/20 spray (Narcan) nicotine (polacrilex) 2 mg gum 2 mg BUCCAL Q2H PRN #30 ea 11/19/20 sucralfate 1 gram tablet 1 g PO QIDACHS #120 tab 11/19/20 tamsulosin 0.4 mg capsule 1 cap PO DAILY #7 cap 11/19/20 verapamil 40 mg tablet 40 mg PO TID #21 tab 11/19/20 zolpidem 10 mg tablet (Ambien) 10 mg PO BEDTIME PRN #7 tab 11/19/20 zolpidem 10 mg tablet (Ambien) 10 mg PO BEDTIME PRN 30 Days #7 tab 11/19/20 sildenafil 100 mg tablet 100 mg PO DAILY PRN 30 Days #30 tab 01/30/21 omeprazole 20 mg capsule,delayed 20 mg PO DAILY #30 cap 02/19/21 release ferrous sulfate 300 mg (60 mg 300 mg (5 mL) PO DAILY 30 Days 03/12/21 iron)/5 mL oral liquid #150 ml sennosides 8.6 mg-docusate sodium 2 tab-cap PO BEDTIME 30 Days #60 04/15/21 50 mg tablet (Senna with Docusate tab Sodium) cholecalciferol (vitamin D3) 50 50 mcg PO DAILY 90 Days #90 cap 04/26/21 mcg (2,000 unit) capsule simethicone 125 mg chewable tablet 125 mg PO BID-QID PRN 30 Days #90 05/02/21 (Gas Relief (simethicone)) tab sulfamethoxazole 800 1 tab PO BID 5 Days #10 tab 05/21/21 mg-trimethoprim 160 mg tablet (Bactrim DS) loperamide 2 mg tablet 2 mg PO QID PRN 30 Days #120 tab 06/11/21 (Anti-Diarrheal (loperamide)) ondansetron 4 mg disintegrating 4 mg PO Q8H PRN 25 Days #30 tab 06/24/21 tablet sucralfate 1 gram tablet (Carafate) 1 g PO BID #30 tab 06/29/21 oxycodone 5 mg tablet 5 mg PO Q4H PRN #10 tab 07/01/21 Allergies Allergy/AdvReac Type Severity Reaction Status Date / Time trazodone [TRAZODONE] Allergy Severe FACIAL Verified 06/23/21 08:15 SWELLING, swelling cat dander [CATS] Allergy Intermediate FACIAL Verified 06/23/21 08:15 ITCHING doxepin [DOXEPIN] Allergy Intermediate WEIGHT Verified 06/23/21 08:15 GAIN/LEG SWELLING Iodinated Contrast Media Allergy Intermediate ITCHING Verified 06/23/21 08:15 [IV DYE, IODINE CONTAINING CONTRAST ] nitroglycerin [NITROGLYCERIN] Allergy Unknown UNKNOWN Verified 06/23/21 08:15 tramadol [TRAMADOL] Allergy Unknown UNKNOWN, Verified 06/23/21 08:15 dry mouth ibuprofen [From MOTRIN] AdvReac Intermediate GI UPSET Verified 06/23/21 08:15 quetiapine [From SEROQUEL] AdvReac Intermediate FACIAL Verified 06/23/21 08:15 SWELLING aspirin [ASPIRIN] AdvReac Mild Stomach Verified 06/23/21 08:15 Upset Ibuprofen Allergy Unknown stomach Uncoded 01/30/21 10:12 ache IV contrast Allergy Unknown Unknown Uncoded 01/30/21 10:12 Motrin Allergy Unknown stomach Uncoded 01/30/21 10:12 pain Review of Systems Review of Systems: Constitutional: No weight loss, fever, chills, weakness or fatigue. HEENT: No visual loss.. No hearing loss. No sore throat. Skin: No rash or itching. Cardiovascular: No chest pain, chest pressure or chest discomfort. No palpitations or pedal edema. Respiratory: No shortness of breath, cough or sputum production. Gastrointestinal: + nausea. No anorexia, vomiting or diarrhea. No abdominal pain or blood in stool. Genitourinary: + urinary retention. + flank pain Neurologic: No headache, dizziness, syncope, unilateral weakness, ataxia, numbness or tingling in the extremities. Musculoskeletal: No muscle pain, back pain, joint pain or stiffness. Endocrine: No polyuria or polydipsia. Yes all other systems are reviewed and are negative PMFSH Past Medical History Attestation statement: The following information was validated with the patient. Source: old records reviewed Medical History Alcohol dependence Anxiety Chest pain Derangement of symphysis pubis Dysphagia GERD (gastroesophageal reflux disease) Major depressive disorder, recurrent severe without psychotic features Opioid abuse Weight loss Surgical History H/O umbilical hernia repair History of colonoscopy History of cystoscopy Family History Family History Father HTN (hypertension) Diabetes Mother HTN (hypertension) Stroke Alzheimer disease Heart disease Social History Social History Household Members: None Housing: Homeless Do you presently have visiting nurse or other home services: No Alcohol intake: never Patient Tobacco Use Status: Never used Tobacco Tobacco use type: Cigarette Cigarette Packs Per Day: 1 Cigarettes Per Day: 20.0 Years Smoked: 9 Second Hand Smoke Exposure: Yes Substance Use Type: Crack/Cocaine Advance Directives: Yes Advance Directives on File: Yes Advance Directives Date on File: 02/24/20 service: No Current occupational status: disabled Sexual orientation: Straight/Heterosexual Physical Exam Vital Signs: Vital Signs: Last Vital Signs Temp 98.0 F 07/01/21 07:49 Pulse 77 07/01/21 07:49 Resp 16 07/01/21 07:49 BP 117/55 L 07/01/21 07:49 Pulse Ox 98 07/01/21 07:49 BMI result Body Mass Index 30.4 Vital signs have been reviewed as normal and appeared to be correct. Blood pressure normal.? Heart rate normal.? Respiration rate normal. Temperature normal.? Oxygen saturation normal. Appearance: Alert.?Oriented to person, place and time. No acute distress.?Normal affect. Eyes: Pupils equal, round and reactive to light.? ENT: Pharynx normal.?? Neck: Normal inspection.? Neck supple.?? CVS: Heart sounds normal. Normal heart rate and rhythm.? Pulses normal.?? Respiratory: No respiratory distress.? Lung sounds clear to auscultation bilaterally?? Abdomen: Soft and non-tender. Normoactive bowel sounds. No pulsatile mass.? Genitourinary: no CVA tenderness, Deluca catheter in place, patent. Skin: Skin warm and dry.? Normal skin color.? Normal skin turgor.?? Extremities: No lower extremity edema.? Neuro: Moves all extremities spontaneously. Sensation intact bilaterally. CN II-XII intact. No focal neuro deficits. Ambulates with normal steady gait. Course Course Course Narrative: Patient is a 51-year-old male with a past medical history of anxiety, depression, GERD, BPH. Presenting to the emergency department today for evaluation of concerns regarding a recently inserted Deluca catheter. patient was experiencing urinary retention with bladder scan of 200 mL and Deluca catheter insertion with approximate 300 mL of initial drainage. CT of his abdomen was obtained there is no clear cause for his flank pain or urinary retention. I discussed and educated the patient how to adjust the straps attached to his leg bag so they are not coming undone. Advised that if the catheter is removed he may still experience the urinary retention that previously brought him into the emergency department. Discussed outpatient follow-up with Urology in 4 days as previously advised. Discussed reasons to return to the emergency department, patient is agreeable to plan of care for discharge home. Reevaluation(s) Reevaluation #1: Advised by nursing staff that upon attempting discharge, patient is requesting Deluca catheter to be removed. spoke with patient the sign language interpreter and discussed that with removal of Deluca catheter he may continue to experience urinary retention which places him at risk for increased pain, infection. will have nursing staff remove Deluca catheter. Will encourage p.o. fluids. Patient will have a voiding trial with PVR bladder scan obtained, advised that should he continue to retain urine it may need to be reinserted, and if able to void will discharge home. Time: 08:43 Reevaluation #2: postvoid bladder scan 37 mL. Patient to be discharged home, advised if he is unable to urinate for 6 hours return back to the emergency department for re-evaluation. Time: 10:48 Discharge Plan Discharge Clinical Impression: Acute urinary retention Patient Disposition: Home, Self-Care Instructions: Urinary Retention in Men (ED) Additional Instructions: The Deluca catheter was removed at your request, if you are unable to urinate for 6 hours please return back to the emergency department. You can take ibuprofen 200 mg, 3 tablets (600mg) every 6-8 hours as needed for pain in addition to Tylenol 500 mg, 2 tablets (1,000mg) every 4-6 hours as needed for pain, but not to exceed 3 doses daily (3,000mg). you were previously prescribed oxycodone if your pain is not relieved with ibuprofen or Tylenol, and this could be picked up at the pharmacy. Please return to the emergency department any new or worsening symptoms or concerns. Prescriptions: No Action omeprazole 20 mg capsule,delayed release(DR/EC) 20 mg PO DAILY Qty: 30 3RF ferrous sulfate 300 mg (60 mg iron)/5 mL liquid 300 mg PO DAILY 30 Days Qty: 150 3RF cholecalciferol (vitamin D3) 50 mcg (2,000 unit) capsule 50 mcg PO DAILY 90 Days Qty: 90 1RF simethicone [Gas Relief (simethicone)] 125 mg tablet,chewable 125 mg PO BID-QID PRN (Reason: abdominal distention) 30 Days Qty: 90 1RF sulfamethoxazole-trimethoprim [Bactrim DS] 800-160 mg tablet 1 tab PO BID 5 Days Qty: 10 0RF loperamide [Anti-Diarrheal (loperamide)] 2 mg tablet 2 mg PO QID PRN (Reason: loose stool) 30 Days Qty: 120 1RF ondansetron 4 mg tablet,disintegrating 4 mg PO Q8H PRN (Reason: nausea and vomiting) 25 Days Qty: 30 0RF verapamil 40 mg Tablet 40 mg PO TID Qty: 21 0RF Protocol: Hold for SBP/HR < HOLD for SBP < : 90 HOLD for HR < : 60 nicotine (polacrilex) 2 mg Gum 2 mg buccal Q2H PRN (Reason: Nicotine Cravings) Qty: 30 4RF atenolol 25 mg Tablet 25 mg PO DAILY Qty: 7 0RF Protocol: Hold for SBP/HR < HOLD for SBP < : 90 HOLD for HR < : 60 baclofen 10 mg Tablet 10 mg PO TID Qty: 21 4RF mirtazapine 15 mg Tablet 45 mg PO BEDTIME Qty: 7 0RF lidocaine [Lidocaine Pain Relief] 4 % Adhesive Patch,Medicated 1 patch transdermal DAILY Qty: 7 0RF Protocol: Apply to: Apply to: back sucralfate 1 gram Tablet 1 g PO QIDACHS Qty: 120 0RF melatonin 3 mg Tablet 3 mg PO BEDTIME Qty: 7 0RF amitriptyline 50 mg Tablet 50 mg PO BEDTIME Qty: 7 4RF benztropine 1 mg Tablet 1 mg PO BID Qty: 14 0RF fluticasone propionate 50 mcg/actuation [place],Suspension 2 spray intranasal DAILY Qty: 1 4RF fluphenazine HCl 5 mg Tablet 5 mg PO BEDTIME Qty: 7 4RF aripiprazole [Abilify] 5 mg Tablet 5 mg PO DAILY Qty: 7 4RF clonazepam 1 mg tablet 1 tab PO BID Qty: 14 4RF tamsulosin 0.4 mg capsule 1 cap PO DAILY Qty: 7 4RF zolpidem [Ambien] 10 mg Tablet 10 mg PO BEDTIME PRN (Reason: Sleep) 30 Days Qty: 7 4RF Narcan 4 mg/actuation spray,non-aerosol 4 mg intranasal Q2M PRN (Reason: opioid overdose) Qty: 2 0RF Rx Instructions: spray 1 dose into ONE nostril; alternate nostrils w each dose until help arrives zolpidem [Ambien] 10 mg tablet 10 mg PO BEDTIME PRN (Reason: insomnia) Qty: 7 4RF clonazepam [Klonopin] 1 mg tablet 1 mg PO BID Qty: 14 4RF sucralfate [Carafate] 1 gram tablet 1 g PO BID Qty: 30 0RF oxycodone 5 mg tablet 5 mg PO Q4H PRN (Reason: pain) Qty: 10 0RF Rx Instructions: Patient may request partial fill sildenafil 100 mg tablet 100 mg PO DAILY PRN (Reason: sexual activity) 30 Days Qty: 30 1RF Rx Instructions: administer 60 minutes before intended activity sennosides-docusate sodium [Senna with Docusate Sodium] 8.6-50 mg tablet 2 tab-cap PO BEDTIME 30 Days Qty: 60 0RF Referrals: Lele Ojeda MD [Physician] - 3 days Interventions: ED Discharge Assessment Last Done: 07/01/21 10:48 Discharge Date/Time: 07/01/21 10:51 Print Language: Urdu
--- NOTE | 2021-07-01 09:38 | PC.NURSE ---
pt refusing bladder scan- pacing [facility]
== END 2021-07-01 10:51 | disposition home or self-care (01) ==
PROVIDERS: Emergency Provider Emergency Medicine; PCP Internal Medicine
DX: R33.9 Retention of urine, unspecified (principal); Z46.6 Encounter for fitting and adjustment of urinary device
CPT/HCPCS: 99283

== ENCOUNTER 2021-07-03 06:25 | Emergency (ER) | payer MEDICAID, SELFPAY ==
[2021-07-03 06:34] VITALS: BP 140/72; PULSE 85; PULSE 92; RESP 14; RESP 16; TEMP 36.1; O2SAT 95; O2SAT 96; BMI 30.4
[2021-07-03 06:38] VITALS: BP 150/90; PULSE 96; O2SAT 97
--- NOTE | 2021-07-03 07:00 | ED_ITS ---
HPI - Male Genitourinary General Chief complaint: Urogenital-Male Stated complaint: BLOOD IN URINE Time Seen by Provider: 07/03/21 06:56 Source: patient and EMS Mode of arrival: EMS Limitations: no limitations History of Present Illness HPI Narrative: Patient comes to emergency room complaining of difficulty urinating. Patient states that for the last 2 days he has been able to pass very scant amounts of urine. Of note, patient was seen here 2 days ago. Bess catheter was inserted, discharge, patient returned a few hours later requesting to have the Bess catheter removed. Patient denies fever chills, no flank pain Related Data Previous Rx's Medication Instructions Recorded amitriptyline 50 mg tablet 50 mg PO BEDTIME #7 tab 11/19/20 aripiprazole 5 mg tablet (Abilify) 5 mg PO DAILY #7 tab 11/19/20 atenolol 25 mg tablet 25 mg PO DAILY #7 tab 11/19/20 baclofen 10 mg tablet 10 mg PO TID #21 tab 11/19/20 benztropine 1 mg tablet 1 mg PO BID #14 tab 11/19/20 clonazepam 1 mg tablet 1 tab PO BID #14 tab 11/19/20 clonazepam 1 mg tablet (Klonopin) 1 mg PO BID #14 tab 11/19/20 fluphenazine HCl 5 mg tablet 5 mg PO BEDTIME #7 tab 11/19/20 fluticasone propionate 50 2 spray INTRANASAL DAILY #1 g 11/19/20 mcg/actuation nasal spray,suspension lidocaine 4 % topical patch 1 patch TRANSDERMAL DAILY #7 ea 11/19/20 (Lidocaine Pain Relief) melatonin 3 mg tablet 3 mg PO BEDTIME #7 tab 11/19/20 mirtazapine 15 mg tablet 45 mg PO BEDTIME #7 tab 11/19/20 naloxone 4 mg/actuation nasal 4 mg INTRANASAL Q2M PRN #2 ea 11/19/20 spray (Narcan) nicotine (polacrilex) 2 mg gum 2 mg BUCCAL Q2H PRN #30 ea 11/19/20 sucralfate 1 gram tablet 1 g PO QIDACHS #120 tab 11/19/20 tamsulosin 0.4 mg capsule 1 cap PO DAILY #7 cap 11/19/20 verapamil 40 mg tablet 40 mg PO TID #21 tab 11/19/20 zolpidem 10 mg tablet (Ambien) 10 mg PO BEDTIME PRN #7 tab 11/19/20 zolpidem 10 mg tablet (Ambien) 10 mg PO BEDTIME PRN 30 Days #7 tab 11/19/20 sildenafil 100 mg tablet 100 mg PO DAILY PRN 30 Days #30 tab 01/30/21 omeprazole 20 mg capsule,delayed 20 mg PO DAILY #30 cap 02/19/21 release ferrous sulfate 300 mg (60 mg 300 mg (5 mL) PO DAILY 30 Days 03/12/21 iron)/5 mL oral liquid #150 ml sennosides 8.6 mg-docusate sodium 2 tab-cap PO BEDTIME 30 Days #60 04/15/21 50 mg tablet (Senna with Docusate tab Sodium) cholecalciferol (vitamin D3) 50 50 mcg PO DAILY 90 Days #90 cap 04/26/21 mcg (2,000 unit) capsule simethicone 125 mg chewable tablet 125 mg PO BID-QID PRN 30 Days #90 05/02/21 (Gas Relief (simethicone)) tab sulfamethoxazole 800 1 tab PO BID 5 Days #10 tab 05/21/21 mg-trimethoprim 160 mg tablet (Bactrim DS) loperamide 2 mg tablet 2 mg PO QID PRN 30 Days #120 tab 06/11/21 (Anti-Diarrheal (loperamide)) ondansetron 4 mg disintegrating 4 mg PO Q8H PRN 25 Days #30 tab 06/24/21 tablet sucralfate 1 gram tablet (Carafate) 1 g PO BID #30 tab 06/29/21 oxycodone 5 mg tablet 5 mg PO Q4H PRN #10 tab 07/01/21 tamsulosin 0.4 mg capsule (Flomax) 0.4 mg PO DAILY #10 cap 07/03/21 Allergies Allergy/AdvReac Type Severity Reaction Status Date / Time trazodone [TRAZODONE] Allergy Severe FACIAL Verified 06/23/21 08:15 SWELLING, swelling cat dander [CATS] Allergy Intermediate FACIAL Verified 06/23/21 08:15 ITCHING doxepin [DOXEPIN] Allergy Intermediate WEIGHT Verified 06/23/21 08:15 GAIN/LEG SWELLING Iodinated Contrast Media Allergy Intermediate ITCHING Verified 06/23/21 08:15 [IV DYE, IODINE CONTAINING CONTRAST ] nitroglycerin [NITROGLYCERIN] Allergy Unknown UNKNOWN Verified 06/23/21 08:15 tramadol [TRAMADOL] Allergy Unknown UNKNOWN, Verified 06/23/21 08:15 dry mouth ibuprofen [From MOTRIN] AdvReac Intermediate GI UPSET Verified 06/23/21 08:15 quetiapine [From SEROQUEL] AdvReac Intermediate FACIAL Verified 06/23/21 08:15 SWELLING aspirin [ASPIRIN] AdvReac Mild Stomach Verified 06/23/21 08:15 Upset Ibuprofen Allergy Unknown stomach Uncoded 01/30/21 10:12 ache IV contrast Allergy Unknown Unknown Uncoded 01/30/21 10:12 Motrin Allergy Unknown stomach Uncoded 01/30/21 10:12 pain Review of Systems Review of Systems: Constitutional : No Weight loss, No Fever, No Chills, No Night Sweats, No Fatigue, No Malaise ENT/Mouth : No Hearing loss, No Ear Pain, No Nasal Congestion, No Sinus Pain, No Hoarseness, No sore throat, No Rhinorrhea, No Swallowing Difficulty Eyes: No Eye Pain, No Swelling, No Redness, No Foreign Body, No Discharge, No Vision Changes Cardiovascular : No Chest Pain, No SOB, No Dyspnea on Exertion, No Orthopnea, No Edema, No Palpitations Respiratory : No Cough, No Sputum, No Wheezing, No Smoke Exposure, No Dyspnea Gastrointestinal : No Nausea, No Vomiting, No Diarrhea, No Constipation, complaining of suprapubic pressure Genitourinary : Complaining of difficulty urinating, passing small amounts of urine, questionable hematuria Musculoskeletal : No joint pain, No Myalgias, No Joint Swelling Skin : No Skin Lesions, No rash Neuro : No Weakness, No Numbness, No Paresthesias, No Loss of Consciousness, No Dizziness, No Headache Psych : No Anxiety/Panic, No Depression, No SI/HI/AH/VH, No Social Issues, Heme/Lymph: No Bruising, No Bleeding,No Lymphadenopathy Endocrine : No Polyuria, No Polydipsia, No Temperature Intolerance PMFSH Past Medical History Medical History Alcohol dependence Anxiety Chest pain Derangement of symphysis pubis Dysphagia GERD (gastroesophageal reflux disease) Major depressive disorder, recurrent severe without psychotic features Opioid abuse Weight loss Surgical History H/O umbilical hernia repair History of colonoscopy History of cystoscopy Family History Family History Father HTN (hypertension) Diabetes Mother HTN (hypertension) Stroke Alzheimer disease Heart disease Social History Social History Household Members: None Housing: Homeless Do you presently have visiting nurse or other home services: No Alcohol intake: never Patient Tobacco Use Status: Never used Tobacco Tobacco use type: Cigarette Cigarette Packs Per Day: 1 Cigarettes Per Day: 20.0 Years Smoked: 9 Second Hand Smoke Exposure: Yes Substance Use Type: Crack/Cocaine Advance Directives: Yes Advance Directives on File: Yes Advance Directives Date on File: 02/24/20 service: No Current occupational status: disabled Sexual orientation: Straight/Heterosexual Physical Exam Vital Signs: Vital Signs: Last Vital Signs Temp 98.6 F 07/03/21 07:50 Pulse 63 07/03/21 07:50 Resp 14 07/03/21 07:50 BP 109/56 L 07/03/21 07:50 Pulse Ox 96 07/03/21 07:50 BMI result Body Mass Index 30.4 Const: Other: Appearance: Alert. Oriented X3. No acute distress. Well-appearing Eyes: Pupils equal, round and reactive to light. ENT: Pharynx normal. Neck: Normal inspection. Neck supple. No lymph nodes noted. No crepitus CVS: Normal heart rate and rhythm. Pulses normal. Normal S1 and S2 Respiratory: No respiratory distress. Breath sounds normal. No Wheezing. No rales Abdomen: Soft and nontender no rigidity, mild distension Skin: Skin warm and dry. Normal skin color. Normal skin turgor. Extremities: No lower extremity edema. No Lacerations. No Rash Neuro: Oriented X 3. No motor deficit. No sensory deficit. Moving all extremities. No slurred speech. CN 2 through 12 grossly intact Psych: calm, cooperative, normal affect Course Course Course Narrative: Creatinine within normal limits, bladder scan shows 370 mL urine, Bess catheter was inserted. Urinalysis pending. Patient does not have gross hematuria, likely secondary to Bess catheter insertion. Patient instructed to follow-up with Urology Urinary retention likely secondary to opiate abuse [facility] - Male Genitourinary Lab Data Result diagrams: 07/03/21 07:48 07/03/21 07:48 Labs: Lab Results 07/03/21 07/03/21 07/03/21 Range/Units 07:48 07:48 07:48 WBC 11.3 H (4.8-10.8) X10*3/uL RBC 4.17 L (4.60-5.80) X10*6/uL Hgb 12.5 L (14.0-18.0) g/dl Hct 36.9 L (42.0-52.0) % MCV 88.5 (80.0-98.0) fL MCH 30.0 (27.0-33.0) pg MCHC 33.9 (31.0-36.0) g/dl RDW 14.8 (11.0-16.0) % Plt Count 246 (160-400) X10*3/uL MPV 9.8 (9.4-12.4) fL Immature Gran % (Auto) 0.3 (0.0-0.4) % Neut % (Auto) 78.9 H (45-73) % Lymph % (Auto) 12.1 L (20-40) % [place] % (Auto) 8.1 (2-11) % Eos % (Auto) 0.4 (0-4) % Baso % (Auto) 0.2 (0-2) % Lymph # (Auto) 1.4 (1.2-4.9) X10*3/uL [place] # (Auto) 0.9 (0.1-1.2) X10*3/uL Eos # (Auto) 0.1 (0.0-0.4) X10*3/uL Baso # (Auto) 0.0 (0.0-0.2) X10*3/uL Abs Immat Gran (auto) 0.03 (0.00-0.03) X10*3/uL Absolute Neuts (auto) 8.9 H (2.0-8.3) x10*3/uL Absolute Nucleated RBC 0.000 (0.0-0.012) X10*3/uL Nucleated RBC % (auto) 0.0 (0.0-0.2) /100WBC PT 13.2 H (9.9-13.0) SEC INR 1.2 H (0.9-1.1) Sodium 135 (135-145) mmol/L Potassium 3.8 (3.3-5.1) mmol/L Chloride 92 L (96-108) mmol/L Carbon Dioxide 32 H (22-29) mmol/L Anion Gap 15 (12-20) BUN 11 (9-16) mg/dL Creatinine 0.97 (0.5-1.4) mg/dL Estim Creat Clear Calc 87.3 Estimated GFR > 60 Random Glucose 113 (60-115) mg/dL Calcium 9.0 (8.4-10.2) mg/dL Total Bilirubin 0.4 (0.0-1.0) mg/dL Direct Bilirubin 0.2 (0.0-0.5) mg/dL AST 38 H (5-37) U/L ALT 26 (0-40) U/L Alkaline Phosphatase 69 (39-117) U/L Total Protein 6.9 (6.5-8.0) g/dL Albumin 3.8 (3.5-5.0) g/dL Urine Color Urine Appearance Urine pH (5.0-8.0) Ur Specific [place] (1.005-1.025) Urine Protein (NEG-TRACE) MG/DL Urine Glucose (UA) (NEG) MG/DL Urine Ketones (NEG) MG/DL Urine Blood (NEG) Urine Nitrite (NEG) Ur Leukocyte Esterase (NEG) Urine RBC (0) /HPF Urine WBC (0-4) /HPF Ur Squamous Epith Cells /LPF Urine Bacteria /LPF Urine Opiates Screen (Not Detect) Urine Fentanyl Screen (Not Detect) Ur Barbiturates Screen (Not Detect) Ur Phencyclidine Scrn (Not Detect) Ur Amphetamines Screen (Not Detect) U Benzodiazepines Scrn (Not Detect) Urine Cocaine Screen (Not Detect) U Marijuana (THC) Screen (Not Detect) 07/03/21 07/03/21 Range/Units 08:38 08:38 WBC (4.8-10.8) X10*3/uL RBC (4.60-5.80) X10*6/uL Hgb (14.0-18.0) g/dl Hct (42.0-52.0) % MCV (80.0-98.0) fL MCH (27.0-33.0) pg MCHC (31.0-36.0) g/dl RDW (11.0-16.0) % Plt Count (160-400) X10*3/uL MPV (9.4-12.4) fL Immature Gran % (Auto) (0.0-0.4) % Neut % (Auto) (45-73) % Lymph % (Auto) (20-40) % [place] % (Auto) (2-11) % Eos % (Auto) (0-4) % Baso % (Auto) (0-2) % Lymph # (Auto) (1.2-4.9) X10*3/uL [place] # (Auto) (0.1-1.2) X10*3/uL Eos # (Auto) (0.0-0.4) X10*3/uL Baso # (Auto) (0.0-0.2) X10*3/uL Abs Immat Gran (auto) (0.00-0.03) X10*3/uL Absolute Neuts (auto) (2.0-8.3) x10*3/uL Absolute Nucleated RBC (0.0-0.012) X10*3/uL Nucleated RBC % (auto) (0.0-0.2) /100WBC PT (9.9-13.0) SEC INR (0.9-1.1) Sodium (135-145) mmol/L Potassium (3.3-5.1) mmol/L Chloride (96-108) mmol/L Carbon Dioxide (22-29) mmol/L Anion Gap (12-20) BUN (9-16) mg/dL Creatinine (0.5-1.4) mg/dL Estim Creat Clear Calc Estimated GFR Random Glucose (60-115) mg/dL Calcium (8.4-10.2) mg/dL Total Bilirubin (0.0-1.0) mg/dL Direct Bilirubin (0.0-0.5) mg/dL AST (5-37) U/L ALT (0-40) U/L Alkaline Phosphatase (39-117) U/L Total Protein (6.5-8.0) g/dL Albumin (3.5-5.0) g/dL Urine Color YELLOW Urine Appearance CLOUDY Urine pH 6.5 (5.0-8.0) Ur Specific [place] 1.025 (1.005-1.025) Urine Protein 1+ H (NEG-TRACE) MG/DL Urine Glucose (UA) NEG (NEG) MG/DL Urine Ketones 40 (NEG) MG/DL Urine Blood 3+ H (NEG) Urine Nitrite NEG (NEG) Ur Leukocyte Esterase NEG (NEG) Urine RBC 76-150 H (0) /HPF Urine WBC 0 (0-4) /HPF Ur Squamous Epith Cells TRACE /LPF Urine Bacteria NONE /LPF Urine Opiates Screen POSITIVE H (Not Detect) Urine Fentanyl Screen POSITIVE H (Not Detect) Ur Barbiturates Screen Not Detected (Not Detect) Ur Phencyclidine Scrn Not Detected (Not Detect) Ur Amphetamines Screen Not Detected (Not Detect) U Benzodiazepines Scrn Not Detected (Not Detect) Urine Cocaine Screen POSITIVE H (Not Detect) U Marijuana (THC) Screen Not Detected (Not Detect) Discharge Plan Discharge Clinical Impression: Acute urinary retention Patient Disposition: Home, Self-Care Instructions: Urinary Retention in Men (ED), Polysubstance Abuse (ED) Additional Instructions: Please stop using drugs. Narcotics/heroin abuse can contribute to urinary retention. Your Bess needs to be removed in 2 days. Please follow-up with Urology, also, Please follow-up with your primary care physician tomorrow. If you have any worsening or new symptoms, please return to the emergency room or call 911 Prescriptions: New tamsulosin [Flomax] 0.4 mg capsule 0.4 mg PO DAILY Qty: 10 0RF No Action omeprazole 20 mg capsule,delayed release(DR/EC) 20 mg PO DAILY Qty: 30 3RF ferrous sulfate 300 mg (60 mg iron)/5 mL liquid 300 mg PO DAILY 30 Days Qty: 150 3RF cholecalciferol (vitamin D3) 50 mcg (2,000 unit) capsule 50 mcg PO DAILY 90 Days Qty: 90 1RF simethicone [Gas Relief (simethicone)] 125 mg tablet,chewable 125 mg PO BID-QID PRN (Reason: abdominal distention) 30 Days Qty: 90 1RF sulfamethoxazole-trimethoprim [Bactrim DS] 800-160 mg tablet 1 tab PO BID 5 Days Qty: 10 0RF loperamide [Anti-Diarrheal (loperamide)] 2 mg tablet 2 mg PO QID PRN (Reason: loose stool) 30 Days Qty: 120 1RF ondansetron 4 mg tablet,disintegrating 4 mg PO Q8H PRN (Reason: nausea and vomiting) 25 Days Qty: 30 0RF verapamil 40 mg Tablet 40 mg PO TID Qty: 21 0RF Protocol: Hold for SBP/HR < HOLD for SBP < : 90 HOLD for HR < : 60 nicotine (polacrilex) 2 mg Gum 2 mg buccal Q2H PRN (Reason: Nicotine Cravings) Qty: 30 4RF atenolol 25 mg Tablet 25 mg PO DAILY Qty: 7 0RF Protocol: Hold for SBP/HR < HOLD for SBP < : 90 HOLD for HR < : 60 baclofen 10 mg Tablet 10 mg PO TID Qty: 21 4RF mirtazapine 15 mg Tablet 45 mg PO BEDTIME Qty: 7 0RF lidocaine [Lidocaine Pain Relief] 4 % Adhesive Patch,Medicated 1 patch transdermal DAILY Qty: 7 0RF Protocol: Apply to: Apply to: back sucralfate 1 gram Tablet 1 g PO QIDACHS Qty: 120 0RF melatonin 3 mg Tablet 3 mg PO BEDTIME Qty: 7 0RF amitriptyline 50 mg Tablet 50 mg PO BEDTIME Qty: 7 4RF benztropine 1 mg Tablet 1 mg PO BID Qty: 14 0RF fluticasone propionate 50 mcg/actuation [place],Suspension 2 spray intranasal DAILY Qty: 1 4RF fluphenazine HCl 5 mg Tablet 5 mg PO BEDTIME Qty: 7 4RF aripiprazole [Abilify] 5 mg Tablet 5 mg PO DAILY Qty: 7 4RF clonazepam 1 mg tablet 1 tab PO BID Qty: 14 4RF tamsulosin 0.4 mg capsule 1 cap PO DAILY Qty: 7 4RF zolpidem [Ambien] 10 mg Tablet 10 mg PO BEDTIME PRN (Reason: Sleep) 30 Days Qty: 7 4RF Narcan 4 mg/actuation spray,non-aerosol 4 mg intranasal Q2M PRN (Reason: opioid overdose) Qty: 2 0RF Rx Instructions: spray 1 dose into ONE nostril; alternate nostrils w each dose until help arrives zolpidem [Ambien] 10 mg tablet 10 mg PO BEDTIME PRN (Reason: insomnia) Qty: 7 4RF clonazepam [Klonopin] 1 mg tablet 1 mg PO BID Qty: 14 4RF sucralfate [Carafate] 1 gram tablet 1 g PO BID Qty: 30 0RF oxycodone 5 mg tablet 5 mg PO Q4H PRN (Reason: pain) Qty: 10 0RF Rx Instructions: Patient may request partial fill sildenafil 100 mg tablet 100 mg PO DAILY PRN (Reason: sexual activity) 30 Days Qty: 30 1RF Rx Instructions: administer 60 minutes before intended activity sennosides-docusate sodium [Senna with Docusate Sodium] 8.6-50 mg tablet 2 tab-cap PO BEDTIME 30 Days Qty: 60 0RF Referrals: Lele Ojeda MD [Physician] - 2 days
[2021-07-03 07:50] VITALS: BP 109/56; PULSE 63; RESP 14; TEMP 37; O2SAT 96
[2021-07-03 07:51] LABS: MANUAL DIFF FLAG NO
[2021-07-03 08:03] LABS: Basophils Percent Auto 0.2 % (0-2); Eosinophils Absolute Auto 0.1 X10*3/uL (0.0-0.4); Eosinophils Percent Auto 0.4 % (0-4); Hematocrit 36.9 % (42.0-52.0); Hemoglobin 12.5 g/dl (14.0-18.0); Imm Gran Abs Auto 0.03 X10*3/uL (0.00-0.03); Imm Gran Pct Auto 0.3 % (0.0-0.4); Lymphocytes Absolute Auto 1.4 X10*3/uL (1.2-4.9); Lymphocytes Percent Auto 12.1 % (20-40); Mean Corpuscular HGB Conc 33.9 g/dl (31.0-36.0); Mean Corpuscular Volume 88.5 fL (80.0-98.0); Mean Platelet Volume 9.8 fL (9.4-12.4); Monocytes Absolute Auto 0.9 X10*3/uL (0.1-1.2); Monocytes Percent Auto 8.1 % (2-11); Neutrophils Absolute Auto 8.9 x10*3/uL (2.0-8.3); Neutrophils Percent Auto 78.9 % (45-73); Platelet Count 246 X10*3/uL (160-400); Red Blood Count 4.17 X10*6/uL (4.60-5.80); Red Cell Distribution Width 14.8 % (11.0-16.0); White Blood Count 11.3 X10*3/uL (4.8-10.8)
[2021-07-03 08:05] LABS: INTERNATIONAL NORM RATIO 1.2 (0.9-1.1); Prothrombin Time 13.2 SEC (9.9-13.0)
[2021-07-03 08:24] LABS: Alanine Aminotransferase 26 U/L (0-40); Albumin Level 3.8 g/dL (3.5-5.0); Alkaline Phosphatase 69 U/L (39-117); Anion Gap 15 (12-20); Aspartate Amino Transferase 38 U/L (5-37); Bilirubin Direct 0.2 mg/dL (0.0-0.5); Bilirubin Total 0.4 mg/dL (0.0-1.0); Blood Urea Nitrogen 11 mg/dL (9-16); Carbon Dioxide 32 mmol/L (22-29); Chloride 92 mmol/L (96-108); Creatinine Clr Calc Pharmacy 87.3; Estimated Glomerular Filt Rate > 60; Glucose Random 113 mg/dL (60-115); Potassium 3.8 mmol/L (3.3-5.1); Sodium 135 mmol/L (135-145); Total Protein 6.9 g/dL (6.5-8.0)
[2021-07-03 08:55] LABS: Appearance Urine CLOUDY; Color Urine YELLOW; Glucose Urine UA NEG (NEG); Leukocyte Esterase Urine NEG (NEG); Nitrite Urine NEG (NEG); PH 6.5 (5.0-8.0); Specific Gravity - Urine 1.025 (1.005-1.025); UACC Culture Trigger NO; Urine Blood 3+ (NEG); Urine Ketones 40 MG/DL (NEG); Urine Protein 1+ MG/DL (NEG-TRACE)
[2021-07-03 09:03] LABS: Squamous Epithelial Cell Urine TRACE /LPF; WBC Urine 0 /HPF (0-4)
[2021-07-03 09:14] LABS: Amphetamine Screen Urine Not Detected (Not Detect); Barbiturates, Urine Not Detected (Not Detect); Benzodiazepines Screen Urine Not Detected (Not Detect); Cannabinoid Screen Urine Not Detected (Not Detect); Cocaine Screen Urine POSITIVE (Not Detect); Fentanyl, urine POSITIVE (Not Detect); Opiate Screen Urine POSITIVE (Not Detect); Phencyclidine Screen Urine Not Detected (Not Detect)
[2021-07-03 10:10] VITALS: BP 110/71; PULSE 70; RESP 18; TEMP 36.7; O2SAT 98
== END 2021-07-03 10:13 | disposition home or self-care (01) ==
PROVIDERS: Emergency Provider Emergency Medicine; PCP Internal Medicine
DX: R33.9 Retention of urine, unspecified (principal); F10.20 Alcohol dependence, uncomplicated; F11.10 Opioid abuse, uncomplicated; F14.90 Cocaine use, unspecified, uncomplicated; F17.200 Nicotine dependence, unspecified, uncomplicated; F25.0 Schizoaffective disorder, bipolar type; Z79.899 Other long term (current) drug therapy
CPT/HCPCS: 36415; 51702; 51798; 80048; 80076; 80307; 81001; 85025; 85610; 99284

== ENCOUNTER 2021-07-05 06:27 | Inpatient (IN) | payer MEDICAID, SELFPAY ==
--- NOTE | 2021-07-05 | ECG_ITS ---
Test Reason : MEDICAL CLEARANCE Blood Pressure : / mmHG Vent. Rate : 068 BPM Atrial Rate : 258 BPM P-R Int : 000 ms QRS Dur : 086 ms QT Int : 432 ms P-R-T Axes : 032 004 -03 degrees QTc Int : 459 ms Artifac in tracing Normal sinus rhythm Moderate voltage criteria for LVH, may be normal variant ( R in aVL , Sokolow-[place] ) Nonspecific T wave abnormality Abnormal ECG When compared with ECG of 29-JUN-2021 06:26, T wave inversion now evident in Anterior leads Nonspecific T wave abnormality no longer evident in Lateral leads Referred By: Keyshawn Aragon Electronically Signed By:VIKI PINEDO
--- NOTE | ~2021-07-05 | XR_ITS ---
EXAMINATION: XR CHEST CLINICAL INFORMATION: Chest pain and shortness of breath COMPARISON: Chest radiograph 07/26/2020, CT abdomen and pelvis 07/01/2021 TECHNIQUE: Frontal view of the chest was obtained. FINDINGS: The right hemidiaphragm is elevated, new since 07/26/2020 and slightly increased when compared to 08/31/2021. The heart is mildly enlarged and appears increased in size when compared to 07/26/2020. No CHF, infiltrates, effusions or lung masses are seen. XR/XR chest 1V IMPRESSION: Elevated right hemidiaphragm. Interval mild cardiac enlargement. No acute intrathoracic disease. When the patient is stable recommend a PA and lateral chest radiograph for further evaluation
--- NOTE | ~2021-07-05 | US_ITS ---
EXAMINATION: US ABDOMEN LIMITED CLINICAL INFORMATION: Transaminitis.. COMPARISON: CT abdomen pelvis 07/01/2021 TECHNIQUE: Real-time imaging of the right upper quadrant abdominal viscera. Color Doppler exam was used. FINDINGS: PANCREAS: Pancreatic head and body are normal. Tail is obscured by bowel gas. LIVER: Liver position is subcostal and there is limited visualization of portions of left lobe. The liver is normal in size. The liver contour is normal. Parenchymal echogenicity is normal. No focal hepatic lesion. There is no intrahepatic biliary duct dilatation seen. GALLBLADDER: Normal. The gallbladder is physiologically distended without evidence of stones, sludge, polyps, wall thickening or pericholecystic fluid. COMMON BILE DUCT: Normal in caliber measuring 0.3 cm in diameter. RIGHT KIDNEY: Normal. No hydronephrosis. No renal calculi or focal parenchymal lesions. The kidney measures 12.3 cm in maximum dimension. FREE FLUID: None. US/US abdomen limited IMPRESSION: Normal ultrasound right upper quadrant abdomen.
[2021-07-05 06:33] VITALS: BP 114/69; PULSE 72; RESP 16; TEMP 36.8; O2SAT 96; BMI 32.1
--- NOTE | 2021-07-05 06:54 | ED.PSYCH ---
HPI - Psych General Chief Complaint: Psychiatric Symptoms <Keyshawn Aragon MD - Last Filed: 07/05/21 09:35> Stated Complaint: SI <Keyshawn Aragon MD - Last Filed: 07/05/21 09:35> Time Seen by Provider: 07/05/21 06:54 <Keyshawn Aragon MD - Last Filed: 07/05/21 09:35> Source: patient <Keyshawn Aragon MD - Last Filed: 07/05/21 09:35> Mode of arrival: EMS <Keyshawn Aragon MD - Last Filed: 07/05/21 09:35> Limitations: no limitations <Keyshawn Aragon MD - Last Filed: 07/05/21 09:35> History of Present Illness HPI Narrative: Patient not taking his meds, comes to the ED frequently, was here 2 days ago. States he is hearing voices to slit his throat. Has not been admitted in a while. patient also states he is having panic attacks. Can't sleep or eat. <Keyshawn Aragon MD - Last Filed: 07/05/21 09:35> MD complaint: suicidal ideation <Keyshawn Aragon MD - Last Filed: 07/05/21 09:35> Onset (ago): week(s) <Keyshawn Aragon MD - Last Filed: 07/05/21 09:35> Duration: constant <Keyshawn Aragon MD - Last Filed: 07/05/21 09:35> History of same: Yes <Keyshawn Aragon MD - Last Filed: 07/05/21 09:35> Relieving factors: none <Keyshawn Aragon MD - Last Filed: 07/05/21 09:35> Associated psychiatric symptoms: depression and suicidal ideation <Keyshawn Aragon MD - Last Filed: 07/05/21 09:35> Treatments prior to arrival: none <Keyshawn Aragon MD - Last Filed: 07/05/21 09:35> If self harm: admits thoughts of self harm <Keyshawn Aragon MD - Last Filed: 07/05/21 09:35> Related Data Home Medications: Home Medications Medication Instructions Recorded Confirmed ferrous sulfate 300 mg (60 mg 5 ml PO DAILY 07/05/21 07/05/21 iron)/5 mL oral liquid zolpidem 10 mg tablet 1 tab PO BEDTIME PRN 07/05/21 07/05/21 <Keyshawn Aragon MD - Last Filed: 07/05/21 09:35> Allergies/Adverse Reactions: Allergies Allergy/AdvReac Type Severity Reaction Status Date / Time trazodone [TRAZODONE] Allergy Severe FACIAL Verified 06/23/21 08:15 SWELLING, swelling cat dander [CATS] Allergy Intermediate FACIAL Verified 06/23/21 08:15 ITCHING doxepin [DOXEPIN] Allergy Intermediate WEIGHT Verified 06/23/21 08:15 GAIN/LEG SWELLING Iodinated Contrast Media Allergy Intermediate ITCHING Verified 06/23/21 08:15 [IV DYE, IODINE CONTAINING CONTRAST ] nitroglycerin [NITROGLYCERIN] Allergy Unknown UNKNOWN Verified 06/23/21 08:15 tramadol [TRAMADOL] Allergy Unknown UNKNOWN, Verified 06/23/21 08:15 dry mouth ibuprofen [From MOTRIN] AdvReac Intermediate GI UPSET Verified 06/23/21 08:15 quetiapine [From SEROQUEL] AdvReac Intermediate FACIAL Verified 06/23/21 08:15 SWELLING aspirin [ASPIRIN] AdvReac Mild Stomach Verified 06/23/21 08:15 Upset Ibuprofen Allergy Unknown stomach Uncoded 01/30/21 10:12 ache IV contrast Allergy Unknown Unknown Uncoded 01/30/21 10:12 Motrin Allergy Unknown stomach Uncoded 01/30/21 10:12 pain <Keyshawn Aragon MD - Last Filed: 07/05/21 09:35> Review of Systems Constitutional: Constitutional: Reports no additional constitutional complaints <Keyshawn Aragon MD - Last Filed: 07/05/21 09:35> Eyes: Eyes: Reports no additional eye complaints <Keyshawn Aragon MD - Last Filed: 07/05/21 09:35> ENT: Denies dizziness <Keyshawn Aragon MD - Last Filed: 07/05/21 09:35> Cardiovascular: Cardiovascular: Reports no additional cardiovascular complaints <Keyshawn Aragon MD - Last Filed: 07/05/21 09:35> Respiratory: Respiratory: Reports as per HPI <Keyshawn Aragon MD - Last Filed: 07/05/21 09:35> Gastrointestinal: Gastrointestinal: Reports no additional gastrointestinal complaints <Keyshawn Aragon MD - Last Filed: 07/05/21 09:35> Musculoskeletal: Musculoskeletal: Reports no additional musculoskeletal complaints <Keyshawn Aragon MD - Last Filed: 07/05/21 09:35> Integumentary/Breasts: Skin/Breast: Denies rash <Keyshawn Aragon MD - Last Filed: 07/05/21 09:35> Neurologic: Reports system reviewed and no additional complaints, except as documented, Denies dizziness and Denies Sensory deficit (Neuro) <Keyshawn Aragon MD - Last Filed: 07/05/21 09:35> Psychiatric: Psychiatric: Denies anxiety <Keyshawn Aragon MD - Last Filed: 07/05/21 09:35> PMFSH Past Medical History Medical History: Medical History Alcohol dependence Anxiety Chest pain Derangement of symphysis pubis Dysphagia GERD (gastroesophageal reflux disease) Major depressive disorder, recurrent severe without psychotic features Opioid abuse Weight loss <Keyshawn Aragon MD - Last Filed: 07/05/21 09:35> Surgical History: Surgical History H/O umbilical hernia repair History of colonoscopy History of cystoscopy <Keyshawn Aragon MD - Last Filed: 07/05/21 09:35> Family History Family History: Family History Father HTN (hypertension) Diabetes Mother HTN (hypertension) Stroke Alzheimer disease Heart disease <Keyshawn Aragon MD - Last Filed: 07/05/21 09:35> Social History Social History: Social History Household Members: None Housing: Homeless Do you presently have visiting nurse or other home services: No Alcohol intake: never Patient Tobacco Use Status: Never used Tobacco Tobacco use type: Cigarette Cigarette Packs Per Day: 1 Cigarettes Per Day: 20.0 Years Smoked: 9 Second Hand Smoke Exposure: Yes Substance Use Type: Crack/Cocaine Advance Directives: Yes Advance Directives Information Provided: Yes Advance Directives on File: No Advance Directives Date on File: 02/24/20 service: No Current occupational status: disabled Sexual orientation: Straight/Heterosexual <Keyshawn Aragon MD - Last Filed: 07/05/21 09:35> Physical Exam Vital Signs: Vital Signs: Last Vital Signs Temp 99.3 F 07/05/21 19:57 Pulse 79 07/05/21 19:57 Resp 17 07/05/21 19:57 BP 115/64 07/05/21 19:57 Pulse Ox 94 07/05/21 19:57 BMI result Body Mass Index 32.1 <Keyshawn Aragon MD - Last Filed: 07/05/21 09:35> Vital Signs: Last Vital Signs Temp 99.3 F 07/05/21 19:57 Pulse 79 07/05/21 19:57 Resp 17 07/05/21 19:57 BP 115/64 07/05/21 19:57 Pulse Ox 94 07/05/21 19:57 BMI result Body Mass Index 32.1 <NASRIN Carreon - Last Filed: 07/05/21 21:25> Const: Other: unkept male <Keyshawn Aragon MD - Last Filed: 07/05/21 09:35> Nutritional Appearance: average body habitus <Keyshawn Aragon MD - Last Filed: 07/05/21 09:35> Orientation/consciousness: oriented to person and patient oriented x3 <Keyshawn Aragon MD - Last Filed: 07/05/21 09:35> Limitations: no limitations <Keyshawn Aragon MD - Last Filed: 07/05/21 09:35> HEENT: Head: Yes normal to inspection <Keysahwn Aragon MD - Last Filed: 07/05/21 09:35> Ears: external ears normal <Keyshawn Aragon MD - Last Filed: 07/05/21 09:35> General nose exam: Normal external nose present <Keyshawn Aragon MD - Last Filed: 07/05/21 09:35> Mouth: Normal oral and palatal mucosa present and oropharynx normal <Keyshawn Aragon MD - Last Filed: 07/05/21 09:35> Throat: Yes posterior oropharynx normal <Keyshawn Aragon MD - Last Filed: 07/05/21 09:35> Eyes: General: appearance normal, both eyes and all related structures <Keyshawn Aragon MD - Last Filed: 07/05/21 09:35> Neck: Other: supple <Keyshawn Aragon MD - Last Filed: 07/05/21 09:35> Neck: Yes normal visual inspection <Keyshawn Aragon MD - Last Filed: 07/05/21 09:35> Chest: Chest palpation & inspection: normal inspection of the chest <Keyshawn Aragon MD - Last Filed: 07/05/21 09:35> Resp: Auscultation: clear to auscultation bilaterally <Keyshawn Aragon MD - Last Filed: 07/05/21 09:35> Cardio: Jugular venous distension: no JVD <Keyshawn Aragon MD - Last Filed: 07/05/21 09:35> Rate: regular rate <Keyshawn Aragon MD - Last Filed: 07/05/21 09:35> Rhythm: regular rhythm <Keyshawn Aragon MD - Last Filed: 07/05/21 09:35> Heart sounds: S1 normal heart sound present and S2 normal heart sound present <Keyshawn Aragon MD - Last Filed: 07/05/21 09:35> GI: Inspection: Yes normal to inspection <Keyshawn Aragon MD - Last Filed: 07/05/21 09:35> Palpation (GI): Soft to palpation, nontender and No hepatosplenomegaly present <Keyshawn Aragon MD - Last Filed: 07/05/21 09:35> Auscultation: normal bowel sounds <Keyshawn Aragon MD - Last Filed: 07/05/21 09:35> : General: Yes no CVA tenderness <MD Jina Roy Last Filed: 07/05/21 09:35> Back/Spine/Pelvis: Back: no CVA tenderness <Keyshawn Aragon MD - Last Filed: 07/05/21 09:35> Skin: General skin exam: no rashes or lesions noted <MD Jina Roy Last Filed: 07/05/21 09:35> Neuro: General: oriented to person and patient oriented x3 <Keyshawn Aragon MD - Last Filed: 07/05/21 09:35> Cranial nerves: Yes CN's II-XII intact bilaterally <Keyshawn Aragon MD - Last Filed: 07/05/21 09:35> Motor exam (neuro): 5/5 motor strength present throughout <Keyshawn Aragon MD - Last Filed: 07/05/21 09:35> Sensory Exam: No Sensory deficit (Neuro) <Keyshawn Aragon MD - Last Filed: 07/05/21 09:35> Extrem: General: Yes normal to inspection <Keyshawn Aragon MD - Last Filed: 07/05/21 09:35> Psych: Other: flat affect <Keyshawn Aragon MD - Last Filed: 07/05/21 09:35> Course Reevaluation(s) Reevaluation #1: patient seen by crisis will be admitted <Keyshawn Aragon MD - Last Filed: 07/05/21 09:35> Time: 09:35 <Keyshawn Aragon MD - Last Filed: 07/05/21 09:35> Reevaluation #2: Patient continues to complain of chest pain so I decided to order CPK a as patient is homeless, having body aches and pains. CBC appears to be at patient's baseline. Sodium is noted to be low, he is being hydrated at this time. Potassium 3.2 again he is being hydrated. New onset NAOMI noted. Total CK 4757 consistent with rhabdomyolysis. Urine positive for leukocyte esterases, a few white blood cells however likely contamination he has no urinary symptoms. Patient's toxicology positive for opiates, fentanyl and cocaine. At this time patient will be hydrated planned admission. Patient cannot be admitted to the psychiatric floor as he has not been medically cleared. <NASRIN Carreon - Last Filed: 07/05/21 21:25> Time: 19:38 <NASRIN Carreon - Last Filed: 07/05/21 21:25> MDM - Psych Medical Records Attestation: I reviewed the patient's medical records. <NASRIN Carreon - Last Filed: 07/05/21 21:25> Lab Data Attestation: I reviewed the patient's lab results. <NASRIN Carreon - Last Filed: 07/05/21 21:25> Result diagrams: : 07/05/21 09:00 07/05/21 20:12 <Keyshawn Aragon MD - Last Filed: 07/05/21 09:35> Labs: Lab Results 07/05/21 07/05/21 07/05/21 Range/Units 06:42 09:00 09:00 WBC 9.5 (4.8-10.8) X10*3/uL RBC 4.40 L (4.60-5.80) X10*6/uL Hgb 12.8 L (14.0-18.0) g/dl Hct 37.6 L (42.0-52.0) % MCV 85.5 (80.0-98.0) fL MCH 29.1 (27.0-33.0) pg MCHC 34.0 (31.0-36.0) g/dl RDW 13.8 (11.0-16.0) % Plt Count 273 (160-400) X10*3/uL MPV 9.7 (9.4-12.4) fL Immature Gran % (Auto) 0.5 H (0.0-0.4) % Neut % (Auto) 80.3 H (45-73) % Lymph % (Auto) 14.8 L (20-40) % [place] % (Auto) 3.9 (2-11) % Eos % (Auto) 0.4 (0-4) % Baso % (Auto) 0.1 (0-2) % Lymph # (Auto) 1.4 (1.2-4.9) X10*3/uL [place] # (Auto) 0.4 (0.1-1.2) X10*3/uL Eos # (Auto) 0.0 (0.0-0.4) X10*3/uL Baso # (Auto) 0.0 (0.0-0.2) X10*3/uL Abs Immat Gran (auto) 0.05 H (0.00-0.03) X10*3/uL Absolute Neuts (auto) 7.6 (2.0-8.3) x10*3/uL Absolute Nucleated RBC 0.000 (0.0-0.012) X10*3/uL Nucleated RBC % (auto) 0.0 (0.0-0.2) /100WBC Sodium 128 L (135-145) mmol/L Potassium 3.2 L (3.3-5.1) mmol/L Chloride 84 L (96-108) mmol/L Carbon Dioxide 27 (22-29) mmol/L Anion Gap 20 (12-20) BUN 32 H D (9-16) mg/dL Creatinine 2.44 H (0.5-1.4) mg/dL Estim Creat Clear Calc 35.6 Estimated GFR 28 Random Glucose 88 (60-115) mg/dL Calcium 8.9 (8.4-10.2) mg/dL Total Bilirubin (0.0-1.0) mg/dL AST (5-37) U/L ALT (0-40) U/L Alkaline Phosphatase (39-117) U/L Total Creatine Kinase 4757 H D (38-174) U/L Troponin I High Sens (<3.5-35.0) ng/L Total Protein (6.5-8.0) g/dL Albumin (3.5-5.0) g/dL Urine Color Urine Appearance Urine pH (5.0-8.0) Ur Specific [place] (1.005-1.025) Urine Protein (NEG-TRACE) MG/DL Urine Glucose (UA) (NEG) MG/DL Urine Ketones (NEG) MG/DL Urine Blood (NEG) Urine Nitrite (NEG) Ur Leukocyte Esterase (NEG) Urine RBC (0) /HPF Urine WBC (0-4) /HPF Ur Squamous Epith Cells /LPF Urine Bacteria /LPF Salicylates < 5.0 L (15-30) mg/dL Urine Opiates Screen (Not Detect) Urine Fentanyl Screen (Not Detect) Acetaminophen < 1 (<30) mcg/mL Ur Barbiturates Screen (Not Detect) Ur Phencyclidine Scrn (Not Detect) Ur Amphetamines Screen (Not Detect) U Benzodiazepines Scrn (Not Detect) Urine Cocaine Screen (Not Detect) U Marijuana (THC) Screen (Not Detect) Ethyl Alcohol mg/dL COVID-19 (ERIN) Negative (Negative) COVID-19 Clin Com See Note 07/05/21 07/05/2107/05/22 Range/Units 09:00 10:46 10:46 WBC (4.8-10.8) X10*3/uL RBC (4.60-5.80) X10*6/uL Hgb (14.0-18.0) g/dl Hct (42.0-52.0) % MCV (80.0-98.0) fL MCH (27.0-33.0) pg MCHC (31.0-36.0) g/dl RDW (11.0-16.0) % Plt Count (160-400) X10*3/uL MPV (9.4-12.4) fL Immature Gran % (Auto) (0.0-0.4) % Neut % (Auto) (45-73) % Lymph % (Auto) (20-40) % [place] % (Auto) (2-11) % Eos % (Auto) (0-4) % Baso % (Auto) (0-2) % Lymph # (Auto) (1.2-4.9) X10*3/uL [place] # (Auto) (0.1-1.2) X10*3/uL Eos # (Auto) (0.0-0.4) X10*3/uL Baso # (Auto) (0.0-0.2) X10*3/uL Abs Immat Gran (auto) (0.00-0.03) X10*3/uL Absolute Neuts (auto) (2.0-8.3) x10*3/uL Absolute Nucleated RBC (0.0-0.012) X10*3/uL Nucleated RBC % (auto) (0.0-0.2) /100WBC Sodium (135-145) mmol/L Potassium (3.3-5.1) mmol/L Chloride (96-108) mmol/L Carbon Dioxide (22-29) mmol/L Anion Gap (12-20) BUN (9-16) mg/dL Creatinine (0.5-1.4) mg/dL Estim Creat Clear Calc Estimated GFR Random Glucose (60-115) mg/dL Calcium (8.4-10.2) mg/dL Total Bilirubin (0.0-1.0) mg/dL AST (5-37) U/L ALT (0-40) U/L Alkaline Phosphatase (39-117) U/L Total Creatine Kinase (38-174) U/L Troponin I High Sens (<3.5-35.0) ng/L Total Protein (6.5-8.0) g/dL Albumin (3.5-5.0) g/dL Urine Color YELLOW Urine Appearance CLEAR Urine pH 6.0 (5.0-8.0) Ur Specific [place] <= 1.005 (1.005-1.025) Urine Protein NEG (NEG-TRACE) MG/DL Urine Glucose (UA) NEG (NEG) MG/DL Urine Ketones 5 (NEG) MG/DL Urine Blood 3+ H (NEG) Urine Nitrite NEG (NEG) Ur Leukocyte Esterase 2+ H (NEG) Urine RBC 1-4 (0) /HPF Urine WBC 10-14 H (0-4) /HPF Ur Squamous Epith Cells TRACE /LPF Urine Bacteria TRACE /LPF Salicylates (15-30) mg/dL Urine Opiates Screen POSITIVE H (Not Detect) Urine Fentanyl Screen POSITIVE H (Not Detect) Acetaminophen (<30) mcg/mL Ur Barbiturates Screen Not Detected (Not Detect) Ur Phencyclidine Scrn Not Detected (Not Detect) Ur Amphetamines Screen Not Detected (Not Detect) U Benzodiazepines Scrn Not Detected (Not Detect) Urine Cocaine Screen POSITIVE H (Not Detect) U Marijuana (THC) Screen Not Detected (Not Detect) Ethyl Alcohol < 10 mg/dL COVID-19 (ERIN) (Negative) COVID-19 Clin Com 07/05/21 07/05/21 Range/Units 20:12 20:12 WBC (4.8-10.8) X10*3/uL RBC (4.60-5.80) X10*6/uL Hgb (14.0-18.0) g/dl Hct (42.0-52.0) % MCV (80.0-98.0) fL MCH (27.0-33.0) pg MCHC (31.0-36.0) g/dl RDW (11.0-16.0) % Plt Count (160-400) X10*3/uL MPV (9.4-12.4) fL Immature Gran % (Auto) (0.0-0.4) % Neut % (Auto) (45-73) % Lymph % (Auto) (20-40) % [place] % (Auto) (2-11) % Eos % (Auto) (0-4) % Baso % (Auto) (0-2) % Lymph # (Auto) (1.2-4.9) X10*3/uL [place] # (Auto) (0.1-1.2) X10*3/uL Eos # (Auto) (0.0-0.4) X10*3/uL Baso # (Auto) (0.0-0.2) X10*3/uL Abs Immat Gran (auto) (0.00-0.03) X10*3/uL Absolute Neuts (auto) (2.0-8.3) x10*3/uL Absolute Nucleated RBC (0.0-0.012) X10*3/uL Nucleated RBC % (auto) (0.0-0.2) /100WBC Sodium 132 L (135-145) mmol/L Potassium 3.2 L (3.3-5.1) mmol/L Chloride 90 L (96-108) mmol/L Carbon Dioxide 30 H (22-29) mmol/L Anion Gap 15 (12-20) BUN 21 H (9-16) mg/dL Creatinine 1.39 (0.5-1.4) mg/dL Estim Creat Clear Calc 62.5 Estimated GFR 53 Random Glucose 98 (60-115) mg/dL Calcium 8.3 L D (8.4-10.2) mg/dL Total Bilirubin 0.5 (0.0-1.0) mg/dL AST 2244 H (5-37) U/L ALT 1773 H (0-40) U/L Alkaline Phosphatase 83 D (39-117) U/L Total Creatine Kinase (38-174) U/L Troponin I High Sens 18.2 D (<3.5-35.0) ng/L Total Protein 6.6 (6.5-8.0) g/dL Albumin 3.6 (3.5-5.0) g/dL Urine Color Urine Appearance Urine pH (5.0-8.0) Ur Specific [place] (1.005-1.025) Urine Protein (NEG-TRACE) MG/DL Urine Glucose (UA) (NEG) MG/DL Urine Ketones (NEG) MG/DL Urine Blood (NEG) Urine Nitrite (NEG) Ur Leukocyte Esterase (NEG) Urine RBC (0) /HPF Urine WBC (0-4) /HPF Ur Squamous Epith Cells /LPF Urine Bacteria /LPF Salicylates (15-30) mg/dL Urine Opiates Screen (Not Detect) Urine Fentanyl Screen (Not Detect) Acetaminophen (<30) mcg/mL Ur Barbiturates Screen (Not Detect) Ur Phencyclidine Scrn (Not Detect) Ur Amphetamines Screen (Not Detect) U Benzodiazepines Scrn (Not Detect) Urine Cocaine Screen (Not Detect) U Marijuana (THC) Screen (Not Detect) Ethyl Alcohol mg/dL COVID-19 (ERIN) (Negative) COVID-19 Clin Com <Keyshawn Aragon MD - Last Filed: 07/05/21 09:35> Lab Results 07/05/21 07/05/21 07/05/21 Range/Units 06:42 09:00 09:00 WBC 9.5 (4.8-10.8) X10*3/uL RBC 4.40 L (4.60-5.80) X10*6/uL Hgb 12.8 L (14.0-18.0) g/dl Hct 37.6 L (42.0-52.0) % MCV 85.5 (80.0-98.0) fL MCH 29.1 (27.0-33.0) pg MCHC 34.0 (31.0-36.0) g/dl RDW 13.8 (11.0-16.0) % Plt Count 273 (160-400) X10*3/uL MPV 9.7 (9.4-12.4) fL Immature Gran % (Auto) 0.5 H (0.0-0.4) % Neut % (Auto) 80.3 H (45-73) % Lymph % (Auto) 14.8 L (20-40) % [place] % (Auto) 3.9 (2-11) % Eos % (Auto) 0.4 (0-4) % Baso % (Auto) 0.1 (0-2) % Lymph # (Auto) 1.4 (1.2-4.9) X10*3/uL [place] # (Auto) 0.4 (0.1-1.2) X10*3/uL Eos # (Auto) 0.0 (0.0-0.4) X10*3/uL Baso # (Auto) 0.0 (0.0-0.2) X10*3/uL Abs Immat Gran (auto) 0.05 H (0.00-0.03) X10*3/uL Absolute Neuts (auto) 7.6 (2.0-8.3) x10*3/uL Absolute Nucleated RBC 0.000 (0.0-0.012) X10*3/uL Nucleated RBC % (auto) 0.0 (0.0-0.2) /100WBC Sodium 128 L (135-145) mmol/L Potassium 3.2 L (3.3-5.1) mmol/L Chloride 84 L (96-108) mmol/L Carbon Dioxide 27 (22-29) mmol/L Anion Gap 20 (12-20) BUN 32 H D (9-16) mg/dL Creatinine 2.44 H (0.5-1.4) mg/dL Estim Creat Clear Calc 35.6 Estimated GFR 28 Random Glucose 88 (60-115) mg/dL Calcium 8.9 (8.4-10.2) mg/dL Total Bilirubin (0.0-1.0) mg/dL AST (5-37) U/L ALT (0-40) U/L Alkaline Phosphatase (39-117) U/L Total Creatine Kinase 4757 H D (38-174) U/L Troponin I High Sens (<3.5-35.0) ng/L Total Protein (6.5-8.0) g/dL Albumin (3.5-5.0) g/dL Urine Color Urine Appearance Urine pH (5.0-8.0) Ur Specific [place] (1.005-1.025) Urine Protein (NEG-TRACE) MG/DL Urine Glucose (UA) (NEG) MG/DL Urine Ketones (NEG) MG/DL Urine Blood (NEG) Urine Nitrite (NEG) Ur Leukocyte Esterase (NEG) Urine RBC (0) /HPF Urine WBC (0-4) /HPF Ur Squamous Epith Cells /LPF Urine Bacteria /LPF Salicylates < 5.0 L (15-30) mg/dL Urine Opiates Screen (Not Detect) Urine Fentanyl Screen (Not Detect) Acetaminophen < 1 (<30) mcg/mL Ur Barbiturates Screen (Not Detect) Ur Phencyclidine Scrn (Not Detect) Ur Amphetamines Screen (Not Detect) U Benzodiazepines Scrn (Not Detect) Urine Cocaine Screen (Not Detect) U Marijuana (THC) Screen (Not Detect) Ethyl Alcohol mg/dL COVID-19 (ERIN) Negative (Negative) COVID-19 Clin Com See Note 07/05/21 07/05/21 07/05/21 Range/Units 09:00 10:46 10:46 WBC (4.8-10.8) X10*3/uL RBC (4.60-5.80) X10*6/uL Hgb (14.0-18.0) g/dl Hct (42.0-52.0) % MCV (80.0-98.0) fL MCH (27.0-33.0) pg MCHC (31.0-36.0) g/dl RDW (11.0-16.0) % Plt Count (160-400) X10*3/uL MPV (9.4-12.4) fL Immature Gran % (Auto) (0.0-0.4) % Neut % (Auto) (45-73) % Lymph % (Auto) (20-40) % [place] % (Auto) (2-11) % Eos % (Auto) (0-4) % Baso % (Auto) (0-2) % Lymph # (Auto) (1.2-4.9) X10*3/uL [place] # (Auto) (0.1-1.2) X10*3/uL Eos # (Auto) (0.0-0.4) X10*3/uL Baso # (Auto) (0.0-0.2) X10*3/uL Abs Immat Gran (auto) (0.00-0.03) X10*3/uL Absolute Neuts (auto) (2.0-8.3) x10*3/uL Absolute Nucleated RBC (0.0-0.012) X10*3/uL Nucleated RBC % (auto) (0.0-0.2) /100WBC Sodium (135-145) mmol/L Potassium (3.3-5.1) mmol/L Chloride (96-108) mmol/L Carbon Dioxide (22-29) mmol/L Anion Gap (12-20) BUN (9-16) mg/dL Creatinine (0.5-1.4) mg/dL Estim Creat Clear Calc Estimated GFR Random Glucose (60-115) mg/dL Calcium (8.4-10.2) mg/dL Total Bilirubin (0.0-1.0) mg/dL AST (5-37) U/L ALT (0-40) U/L Alkaline Phosphatase (39-117) U/L Total Creatine Kinase (38-174) U/L Troponin I High Sens (<3.5-35.0) ng/L Total Protein (6.5-8.0) g/dL Albumin (3.5-5.0) g/dL Urine Color YELLOW Urine Appearance CLEAR Urine pH 6.0 (5.0-8.0) Ur Specific [place] <= 1.005 (1.005-1.025) Urine Protein NEG (NEG-TRACE) MG/DL Urine Glucose (UA) NEG (NEG) MG/DL Urine Ketones 5 (NEG) MG/DL Urine Blood 3+ H (NEG) Urine Nitrite NEG (NEG) Ur Leukocyte Esterase 2+ H (NEG) Urine RBC 1-4 (0) /HPF Urine WBC 10-14 H (0-4) /HPF Ur Squamous Epith Cells TRACE /LPF Urine Bacteria TRACE /LPF Salicylates (15-30) mg/dL Urine Opiates Screen POSITIVE H (Not Detect) Urine Fentanyl Screen POSITIVE H (Not Detect) Acetaminophen (<30) mcg/mL Ur Barbiturates Screen Not Detected (Not Detect) Ur Phencyclidine Scrn Not Detected (Not Detect) Ur Amphetamines Screen Not Detected (Not Detect) U Benzodiazepines Scrn Not Detected (Not Detect) Urine Cocaine Screen POSITIVE H (Not Detect) U Marijuana (THC) Screen Not Detected (Not Detect) Ethyl Alcohol < 10 mg/dL COVID-19 (ERIN) (Negative) COVID-19 Clin Com 07/05/21 07/05/21 Range/Units 20:12 20:12 WBC (4.8-10.8) X10*3/uL RBC (4.60-5.80) X10*6/uL Hgb (14.0-18.0) g/dl Hct (42.0-52.0) % MCV (80.0-98.0) fL MCH (27.0-33.0) pg MCHC (31.0-36.0) g/dl RDW (11.0-16.0) % Plt Count (160-400) X10*3/uL MPV (9.4-12.4) fL Immature Gran % (Auto) (0.0-0.4) % Neut % (Auto) (45-73) % Lymph % (Auto) (20-40) % [place] % (Auto) (2-11) % Eos % (Auto) (0-4) % Baso % (Auto) (0-2) % Lymph # (Auto) (1.2-4.9) X10*3/uL [place] # (Auto) (0.1-1.2) X10*3/uL Eos # (Auto) (0.0-0.4) X10*3/uL Baso # (Auto) (0.0-0.2) X10*3/uL Abs Immat Gran (auto) (0.00-0.03) X10*3/uL Absolute Neuts (auto) (2.0-8.3) x10*3/uL Absolute Nucleated RBC (0.0-0.012) X10*3/uL Nucleated RBC % (auto) (0.0-0.2) /100WBC Sodium 132 L (135-145) mmol/L Potassium 3.2 L (3.3-5.1) mmol/L Chloride 90 L (96-108) mmol/L Carbon Dioxide 30 H (22-29) mmol/L Anion Gap 15 (12-20) BUN 21 H (9-16) mg/dL Creatinine 1.39 (0.5-1.4) mg/dL Estim Creat Clear Calc 62.5 Estimated GFR 53 Random Glucose 98 (60-115) mg/dL Calcium 8.3 L D (8.4-10.2) mg/dL Total Bilirubin 0.5 (0.0-1.0) mg/dL AST 2244 H (5-37) U/L ALT 1773 H (0-40) U/L Alkaline Phosphatase 83 D (39-117) U/L Total Creatine Kinase (38-174) U/L Troponin I High Sens 18.2 D (<3.5-35.0) ng/L Total Protein 6.6 (6.5-8.0) g/dL Albumin 3.6 (3.5-5.0) g/dL Urine Color Urine Appearance Urine pH (5.0-8.0) Ur Specific [place] (1.005-1.025) Urine Protein (NEG-TRACE) MG/DL Urine Glucose (UA) (NEG) MG/DL Urine Ketones (NEG) MG/DL Urine Blood (NEG) Urine Nitrite (NEG) Ur Leukocyte Esterase (NEG) Urine RBC (0) /HPF Urine WBC (0-4) /HPF Ur Squamous Epith Cells /LPF Urine Bacteria /LPF Salicylates (15-30) mg/dL Urine Opiates Screen (Not Detect) Urine Fentanyl Screen (Not Detect) Acetaminophen (<30) mcg/mL Ur Barbiturates Screen (Not Detect) Ur Phencyclidine Scrn (Not Detect) Ur Amphetamines Screen (Not Detect) U Benzodiazepines Scrn (Not Detect) Urine Cocaine Screen (Not Detect) U Marijuana (THC) Screen (Not Detect) Ethyl Alcohol mg/dL COVID-19 (ERIN) (Negative) COVID-19 Clin Com <NASRIN Carreon - Last Filed: 07/05/21 21:25> ECG Data Attestation: I personally reviewed and interpreted this ECG as follows: <NASRIN Carreon - Last Filed: 07/05/21 21:25> ECG interpretation date: 07/05/21 <NASRIN Carreon - Last Filed: 07/05/21 21:25> ECG interpretation time: 19:42 <NASRIN Carreon Last Filed: 07/05/21 21:25> Prior ECG tracings: available for review <NASRIN Carreon - Last Filed: 07/05/21 21:25> Interpretation: Ventricular rate of 68 QT/QTC normal. EKG shows LVH and atrial flutter. There are T-wave inversions in the anterior leads. Significant changes when compared to EKG from June 2021 <NASRIN Carreon - Last Filed: 07/05/21 21:25> Critical Care Time Critical Care Time Critical Care Time: No <NASRIN Carreon - Last Filed: 07/05/21 21:25> Discharge Plan Discharge Clinical Impression: Rhabdomyolysis, Depression with suicidal ideation, Psychosis, Bipolar disorder, NAOMI (acute kidney injury), Abnormal transaminases <Keyshawn Aragon MD - Last Filed: 07/05/21 09:35> Patient Disposition: Admitted As Inpatient <Keyshawn Aragon MD - Last Filed: 07/05/21 09:35>
--- NOTE | 2021-07-05 07:07 | PC.NURSE ---
patient appears to remain asleep at present respirationis are even and unlabored patient appears in no distress
[2021-07-05 07:12] LABS: COVID-19 Test Negative (Negative)
[2021-07-05 09:09] LABS: MANUAL DIFF FLAG NO
[2021-07-05 09:11] LABS: Basophils Percent Auto 0.1 % (0-2); Eosinophils Percent Auto 0.4 % (0-4); Hematocrit 37.6 % (42.0-52.0); Hemoglobin 12.8 g/dl (14.0-18.0); Imm Gran Abs Auto 0.05 X10*3/uL (0.00-0.03); Imm Gran Pct Auto 0.5 % (0.0-0.4); Lymphocytes Absolute Auto 1.4 X10*3/uL (1.2-4.9); Lymphocytes Percent Auto 14.8 % (20-40); Mean Corpuscular Hemoglobin 29.1 pg (27.0-33.0); Mean Corpuscular Volume 85.5 fL (80.0-98.0); Mean Platelet Volume 9.7 fL (9.4-12.4); Monocytes Absolute Auto 0.4 X10*3/uL (0.1-1.2); Monocytes Percent Auto 3.9 % (2-11); Neutrophils Absolute Auto 7.6 x10*3/uL (2.0-8.3); Neutrophils Percent Auto 80.3 % (45-73); Platelet Count 273 X10*3/uL (160-400); Red Cell Distribution Width 13.8 % (11.0-16.0); White Blood Count 9.5 X10*3/uL (4.8-10.8)
[2021-07-05 09:26] LABS: Ethanol < 10 mg/dL
[2021-07-05 09:31] LABS: Acetaminophen LAB < 1 mcg/mL (<30); Anion Gap 20 (12-20); Blood Urea Nitrogen 32 mg/dL (9-16); Calcium 8.9 mg/dL (8.4-10.2); Carbon Dioxide 27 mmol/L (22-29); Chloride 84 mmol/L (96-108); Creatinine Clr Calc Pharmacy 35.6; Estimated Glomerular Filt Rate 28; Glucose Random 88 mg/dL (60-115); Potassium 3.2 mmol/L (3.3-5.1); Salicylate < 5.0 mg/dL (15-30); Sodium 128 mmol/L (135-145)
[2021-07-05 10:59] LABS: Appearance Urine CLEAR; Color Urine YELLOW; Glucose Urine UA NEG (NEG); Leukocyte Esterase Urine 2+ (NEG); Nitrite Urine NEG (NEG); Specific Gravity - Urine <= 1.005 (1.005-1.025); Urine Blood 3+ (NEG); Urine Ketones 5 MG/DL (NEG); Urine Protein NEG (NEG-TRACE)
[2021-07-05 11:12] LABS: Amphetamine Screen Urine Not Detected (Not Detect); Barbiturates, Urine Not Detected (Not Detect); Benzodiazepines Screen Urine Not Detected (Not Detect); Cannabinoid Screen Urine Not Detected (Not Detect); Cocaine Screen Urine POSITIVE (Not Detect); Fentanyl, urine POSITIVE (Not Detect); Opiate Screen Urine POSITIVE (Not Detect); Phencyclidine Screen Urine Not Detected (Not Detect)
[2021-07-05 11:26] LABS: Bacteria Urine TRACE /LPF; Squamous Epithelial Cell Urine TRACE /LPF
[2021-07-05 12:22] VITALS: BP 129/67; PULSE 78; RESP 18; TEMP 37; O2SAT 93
--- NOTE | 2021-07-05 16:20 | PC.NURSE ---
nurse to nurse given to m3 pt will be going into [id number]
--- NOTE | 2021-07-05 17:56 | PC.NURSE ---
Patient receiving iv fluids 1:[address] patient is nauseos and c/o chest pain vitals taken 124/68, 93% o2 pulse 93 temp 98.5 charge nurse notified of patient issues to be moved to main ed
--- NOTE | 2021-07-05 18:31 | HO.PSYADMNOT ---
HPI Chief Complaint: SI HPI Past Psychiatric History: Multiple hospital stays. He has providers at [facility] Medical History Alcohol dependence Anxiety Chest pain Derangement of symphysis pubis Dysphagia GERD (gastroesophageal reflux disease) Major depressive disorder, recurrent severe without psychotic features Opioid abuse Weight loss Surgical History H/O umbilical hernia repair History of colonoscopy History of cystoscopy Family History: Sister with chronic psychosis Social History: Chronically homeless, with poor social support. Unemployed on SSI Trauma History: Recent loss of his nephew Diagnostics Vital Signs (24Hr): Vital Signs - 24 hr 07/05/21 06:33 07/05/21 12:22 Temperature 98.2 F 98.6 F Pulse Rate 72 78 Respiratory Rate 16 18 Blood Pressure 114/69 129/67 Pulse Oximetry 96 93 BMI result Body Mass Index 32.1 Labs Results: 07/05/21 09:00 07/05/21 09:00 Labs: Laboratory Results - last 48 hr 07/05/21 07/05/21 07/05/21 06:42 09:00 09:00 WBC 9.5 RBC 4.40 L Hgb 12.8 L Hct 37.6 L MCV 85.5 MCH 29.1 MCHC 34.0 RDW 13.8 Plt Count 273 MPV 9.7 Immature Gran % (Auto) 0.5 H Neut % (Auto) 80.3 H Lymph % (Auto) 14.8 L [place] % (Auto) 3.9 Eos % (Auto) 0.4 Baso % (Auto) 0.1 Lymph # (Auto) 1.4 [place] # (Auto) 0.4 Eos # (Auto) 0.0 Baso # (Auto) 0.0 Abs Immat Gran (auto) 0.05 H Absolute Neuts (auto) 7.6 Absolute Nucleated RBC 0.000 Nucleated RBC % (auto) 0.0 Sodium 128 L Potassium 3.2 L Chloride 84 L Carbon Dioxide 27 Anion Gap 20 BUN 32 H D Creatinine 2.44 H Estim Creat Clear Calc 35.6 Estimated GFR 28 Random Glucose 88 Calcium 8.9 Urine Color Urine Appearance Urine pH Ur Specific [place] Urine Protein Urine Glucose (UA) Urine Ketones Urine Blood Urine Nitrite Ur Leukocyte Esterase Urine RBC Urine WBC Ur Squamous Epith Cells Urine Bacteria Salicylates < 5.0 L Urine Opiates Screen Urine Fentanyl Screen Acetaminophen < 1 Ur Barbiturates Screen Ur Phencyclidine Scrn Ur Amphetamines Screen U Benzodiazepines Scrn Urine Cocaine Screen U Marijuana (THC) Screen Ethyl Alcohol COVID-19 (ERIN) Negative COVID-19 Clin Com See Note 07/05/21 07/05/21 07/05/21 09:00 10:46 10:46 WBC RBC Hgb Hct MCV MCH MCHC RDW Plt Count MPV Immature Gran % (Auto) Neut % (Auto) Lymph % (Auto) [place] % (Auto) Eos % (Auto) Baso % (Auto) Lymph # (Auto) [place] # (Auto) Eos # (Auto) Baso # (Auto) Abs Immat Gran (auto) Absolute Neuts (auto) Absolute Nucleated RBC Nucleated RBC % (auto) Sodium Potassium Chloride Carbon Dioxide Anion Gap BUN Creatinine Estim Creat Clear Calc Estimated GFR Random Glucose Calcium Urine Color YELLOW Urine Appearance CLEAR Urine pH 6.0 Ur Specific [place] <= 1.005 Urine Protein NEG Urine Glucose (UA) NEG Urine Ketones 5 Urine Blood 3+ H Urine Nitrite NEG Ur Leukocyte Esterase 2+ H Urine RBC 1-4 Urine WBC 10-14 H Ur Squamous Epith Cells TRACE Urine Bacteria TRACE Salicylates Urine Opiates Screen POSITIVE H Urine Fentanyl Screen POSITIVE H Acetaminophen Ur Barbiturates Screen Not Detected Ur Phencyclidine Scrn Not Detected Ur Amphetamines Screen Not Detected U Benzodiazepines Scrn Not Detected Urine Cocaine Screen POSITIVE H U Marijuana (THC) Screen Not Detected Ethyl Alcohol < 10 COVID-19 (ERIN) COVID-19 Clin Com Meds/Allergies Allergies Allergies Allergy/AdvReac Type Severity Reaction Status Date / Time trazodone [TRAZODONE] Allergy Severe FACIAL Verified 06/23/21 08:15 SWELLING, swelling cat dander [CATS] Allergy Intermediate FACIAL Verified 06/23/21 08:15 ITCHING doxepin [DOXEPIN] Allergy Intermediate WEIGHT Verified 06/23/21 08:15 GAIN/LEG SWELLING Iodinated Contrast Media Allergy Intermediate ITCHING Verified 06/23/21 08:15 [IV DYE, IODINE CONTAINING CONTRAST ] nitroglycerin [NITROGLYCERIN] Allergy Unknown UNKNOWN Verified 06/23/21 08:15 tramadol [TRAMADOL] Allergy Unknown UNKNOWN, Verified 06/23/21 08:15 dry mouth ibuprofen [From MOTRIN] AdvReac Intermediate GI UPSET Verified 06/23/21 08:15 quetiapine [From SEROQUEL] AdvReac Intermediate FACIAL Verified 06/23/21 08:15 SWELLING aspirin [ASPIRIN] AdvReac Mild Stomach Verified 06/23/21 08:15 Upset Ibuprofen Allergy Unknown stomach Uncoded 01/30/21 10:12 ache IV contrast Allergy Unknown Unknown Uncoded 01/30/21 10:12 Motrin Allergy Unknown stomach Uncoded 01/30/21 10:12 pain
[2021-07-05 19:57] VITALS: BP 115/64; PULSE 79; RESP 17; TEMP 37.4; O2SAT 94
[2021-07-05] MEDS: 0.9 % Sodium Chloride 1,000 ML 999 ML IV ×2 (20:16)
[2021-07-05 20:45] LABS: Alanine Aminotransferase 1773 U/L (0-40); Albumin Level 3.6 g/dL (3.5-5.0); Alkaline Phosphatase 83 U/L (39-117); Anion Gap 15 (12-20); Aspartate Amino Transferase 2244 U/L (5-37); Bilirubin Total 0.5 mg/dL (0.0-1.0); Blood Urea Nitrogen 21 mg/dL (9-16); Calcium 8.3 mg/dL (8.4-10.2); Carbon Dioxide 30 mmol/L (22-29); Chloride 90 mmol/L (96-108); Creatinine Clr Calc Pharmacy 62.5; Estimated Glomerular Filt Rate 53; Glucose Random 98 mg/dL (60-115); Potassium 3.2 mmol/L (3.3-5.1); Sodium 132 mmol/L (135-145); Total Protein 6.6 g/dL (6.5-8.0)
[2021-07-05 20:49] LABS: Troponin-I High Sensitivity 18.2 ng/L (<3.5-35.0)
--- NOTE | 2021-07-05 21:22 | PM.IMHP ---
History of Present Illness Date of Service: 07/05/21 Chief Complaint: Generalized body aches 51-year-old with a past medical history of anxiety, alcohol abuse, GERD, dysphagia, major depressive disorder, opiate abuse, history of suicidal ideations; presented to the hospital today with a chief complaint of auditory hallucinations. Patient also expressed ideas of suicidal ideation. Denies any plan. Patient also complains of nausea, generalized body aches; reports he has been generally weak. Denies any fever chills. Denies any cough or sputum production. Denies any chest pain or palpitations. Review of all other systems is negative except mentioned above ER course: Per ER team patient complained of auditory hallucinations and suicidal ideations; section 12 was felt in; on labs noted to have CPK elevated to 4757, AST 05/26/2043, ALT 1773, T bili 0.5; abdominal exam was benign; recent CT abdomen showed esophageal thickening; labs also noted to have elevated creatinine. Patient was given IV fluids. U tox positive for opiates, fentanyl, cocaine. Admitted to the hospital for further management. [facility] Medical History Alcohol dependence Anxiety Chest pain Derangement of symphysis pubis Dysphagia GERD (gastroesophageal reflux disease) Major depressive disorder, recurrent severe without psychotic features Opioid abuse Weight loss Family History Father HTN (hypertension) Diabetes Mother HTN (hypertension) Stroke Alzheimer disease Heart disease Surgical History H/O umbilical hernia repair History of colonoscopy History of cystoscopy Social History Household Members: Friend(s) Housing: Other Do you presently have visiting nurse or other home services: No Alcohol intake: never Patient Tobacco Use Status: Current everyday Tobacco user Tobacco use type: Cigarette Cigarette Packs Per Day: 1 Cigarettes Per Day: 20.0 Years Smoked: 9 Second Hand Smoke Exposure: Yes Substance Use Type: Crack/Cocaine Advance Directives Date on File: 02/24/20 service: No Current occupational status: disabled Sexual orientation: Straight/Heterosexual Meds Allergies Allergy/AdvReac Type Severity Reaction Status Date / Time trazodone [TRAZODONE] Allergy Severe FACIAL Verified 06/23/21 08:15 SWELLING, swelling cat dander [CATS] Allergy Intermediate FACIAL Verified 06/23/21 08:15 ITCHING doxepin [DOXEPIN] Allergy Intermediate WEIGHT Verified 06/23/21 08:15 GAIN/LEG SWELLING Iodinated Contrast Media Allergy Intermediate ITCHING Verified 06/23/21 08:15 [IV DYE, IODINE CONTAINING CONTRAST ] nitroglycerin [NITROGLYCERIN] Allergy Unknown UNKNOWN Verified 06/23/21 08:15 tramadol [TRAMADOL] Allergy Unknown UNKNOWN, Verified 06/23/21 08:15 dry mouth ibuprofen [From MOTRIN] AdvReac Intermediate GI UPSET Verified 06/23/21 08:15 quetiapine [From SEROQUEL] AdvReac Intermediate FACIAL Verified 06/23/21 08:15 SWELLING aspirin [ASPIRIN] AdvReac Mild Stomach Verified 06/23/21 08:15 Upset Ibuprofen Allergy Unknown stomach Uncoded 01/30/21 10:12 ache IV contrast Allergy Unknown Unknown Uncoded 01/30/21 10:12 Motrin Allergy Unknown stomach Uncoded 01/30/21 10:12 pain Active Medications: Current Medications Ferrous Sulfate (Ferrous Sulfate 300 Mg/5 Ml Liquid) 300 mg PO DAILY JAMES Zolpidem Tartrate (Zolpidem Tartrate 5 Mg Tablet) 10 mg PO BEDTIME PRN PRN Reason: Insomnia Home Medications Medication Instructions Recorded Confirmed Last Taken Type ferrous sulfate 300 mg (60 mg 5 ml PO DAILY 07/05/21 07/05/21 Unknown History iron)/5 mL oral liquid ondansetron 4 mg disintegrating 1 tab PO Q8H PRN 07/05/21 07/05/21 Unknown History tablet zolpidem 10 mg tablet 1 tab PO BEDTIME PRN 07/05/21 07/05/21 Unknown History Physical Exam Vital Signs and Narrative: Vital Signs: Last Vital Signs Temp 99.3 F 07/05/21 19:57 Pulse 79 07/05/21 19:57 Resp 17 07/05/21 19:57 BP 115/64 07/05/21 19:57 Pulse Ox 94 07/05/21 19:57 BMI result Body Mass Index 32.1 Gen: Appears be in no acute distress HEENT: NCAT, Moist mucosa. Pulmonary: Vesicular breath sounds, fair air entry CVS: Normal S1-S2 Abdomen: BS+, Soft, Nontender Extremities: Warm well perfused Neuro: Alert and awake. Grossly nonfocal Results Labs CBC and Chem 7: 07/06/21 06:15 07/06/21 06:15 Labs: Laboratory Results - last 24 hr 07/05/21 07/05/21 07/05/21 06:42 09:00 09:00 MCV 85.5 MCH 29.1 MCHC 34.0 RDW 13.8 Plt Count 273 MPV 9.7 Immature Gran % (Auto) 0.5 H Neut % (Auto) 80.3 H Lymph % (Auto) 14.8 L [place] % (Auto) 3.9 Eos % (Auto) 0.4 Baso % (Auto) 0.1 Lymph # (Auto) 1.4 [place] # (Auto) 0.4 Eos # (Auto) 0.0 Baso # (Auto) 0.0 Abs Immat Gran (auto) 0.05 H Absolute Neuts (auto) 7.6 Absolute Nucleated RBC 0.000 Nucleated RBC % (auto) 0.0 Anion Gap 20 Estim Creat Clear Calc 35.6 Estimated GFR 28 Random Glucose 88 Calcium 8.9 Total Bilirubin AST ALT Alkaline Phosphatase Total Creatine Kinase 4757 H D Troponin I High Sens Total Protein Albumin Urine Color Urine Appearance Urine pH Ur Specific [place] Urine Protein Urine Glucose (UA) Urine Ketones Urine Blood Urine Nitrite Ur Leukocyte Esterase Urine RBC Urine WBC Ur Squamous Epith Cells Urine Bacteria Salicylates < 5.0 L Urine Opiates Screen Urine Fentanyl Screen Acetaminophen < 1 Ur Barbiturates Screen Ur Phencyclidine Scrn Ur Amphetamines Screen U Benzodiazepines Scrn Urine Cocaine Screen U Marijuana (THC) Screen Ethyl Alcohol COVID-19 (ERIN) Negative COVID-19 Clin Com See Note 07/05/21 07/05/21 07/05/21 09:00 10:46 10:46 MCV MCH MCHC RDW Plt Count MPV Immature Gran % (Auto) Neut % (Auto) Lymph % (Auto) [place] % (Auto) Eos % (Auto) Baso % (Auto) Lymph # (Auto) [place] # (Auto) Eos # (Auto) Baso # (Auto) Abs Immat Gran (auto) Absolute Neuts (auto) Absolute Nucleated RBC Nucleated RBC % (auto) Anion Gap Estim Creat Clear Calc Estimated GFR Random Glucose Calcium Total Bilirubin AST ALT Alkaline Phosphatase Total Creatine Kinase Troponin I High Sens Total Protein Albumin Urine Color YELLOW Urine Appearance CLEAR Urine pH 6.0 Ur Specific [place] <= 1.005 Urine Protein NEG Urine Glucose (UA) NEG Urine Ketones 5 Urine Blood 3+ H Urine Nitrite NEG Ur Leukocyte Esterase 2+ H Urine RBC 1-4 Urine WBC 10-14 H Ur Squamous Epith Cells TRACE Urine Bacteria TRACE Salicylates Urine Opiates Screen POSITIVE H Urine Fentanyl Screen POSITIVE H Acetaminophen Ur Barbiturates Screen Not Detected Ur Phencyclidine Scrn Not Detected Ur Amphetamines Screen Not Detected U Benzodiazepines Scrn Not Detected Urine Cocaine Screen POSITIVE H U Marijuana (THC) Screen Not Detected Ethyl Alcohol < 10 COVID-19 (ERIN) COVID-19 Clin Com 07/05/21 07/05/21 20:12 20:12 MCV MCH MCHC RDW Plt Count MPV Immature Gran % (Auto) Neut % (Auto) Lymph % (Auto) [place] % (Auto) Eos % (Auto) Baso % (Auto) Lymph # (Auto) [place] # (Auto) Eos # (Auto) Baso # (Auto) Abs Immat Gran (auto) Absolute Neuts (auto) Absolute Nucleated RBC Nucleated RBC % (auto) Anion Gap 15 Estim Creat Clear Calc 62.5 Estimated GFR 53 Random Glucose 98 Calcium 8.3 L D Total Bilirubin 0.5 AST 2244 H ALT 1773 H Alkaline Phosphatase 83 D Total Creatine Kinase Troponin I High Sens 18.2 D Total Protein 6.6 Albumin 3.6 Urine Color Urine Appearance Urine pH Ur Specific [place] Urine Protein Urine Glucose (UA) Urine Ketones Urine Blood Urine Nitrite Ur Leukocyte Esterase Urine RBC Urine WBC Ur Squamous Epith Cells Urine Bacteria Salicylates Urine Opiates Screen Urine Fentanyl Screen Acetaminophen Ur Barbiturates Screen Ur Phencyclidine Scrn Ur Amphetamines Screen U Benzodiazepines Scrn Urine Cocaine Screen U Marijuana (THC) Screen Ethyl Alcohol COVID-19 (ERIN) COVID-19 Clin Com Imaging Radiologist's Impressions: Impressions Chest X-Ray 07/05/21 19:04 IMPRESSION: Elevated right hemidiaphragm. Interval mild cardiac enlargement. No acute intrathoracic disease. When the patient is stable recommend a PA and lateral chest radiograph for further evaluation Assessment and Plan (1) Rhabdomyolysis: Status: Acute (2) NAOMI (acute kidney injury): Status: Acute (3) UTI (urinary tract infection), bacterial: Status: Acute Plan 51-year-old with a past medical history of anxiety, alcohol abuse, GERD, dysphagia, major depressive disorder, opiate abuse, history of suicidal ideations; presented to the hospital today with a chief complaint of auditory hallucinations/ suicidal ideation/generalized body aches. Admitted for following conditions Transaminitis: Question acute viral hepatitis versus cocaine versus rhabdomyolysis versus alcohol-related. Trend liver enzymes T bili within normal limits Right upper quadrant ultrasound Gastroenterology consult Will obtain acute hepatitis panel History of dysphagia: Patient's recent CT abdomen showed esophageal thickening. Will consult Gastroenterology for question EGD. Speech and swallow eval. Opiate abuse: Monitor on COWS protocol Alcohol abuse: Monitor on CIWA protocol with Ativan NAOMI: Gentle IV fluids Rhabdomyolysis: Patient on IV fluids. Likely in the setting of cocaine use. Monitor CPK levels UTI: Continue ceftriaxone follow-up cultures. Suicidal ideation: Section [address] One on 1 observation. Suicidal precautions. Psychiatric consult. DVT prophylaxis: Subcu heparin Code status: Full code Quality Stroke Does the patient have a stroke diagnosis?: No VTE Prior VTE?: No VTE Risk Level:: Medical - moderate - high VTE Device Contraindication: Treatment Not Indicated VTE Drug Contraindication: N/A - Med Ordered
[2021-07-05] MEDS: Ondansetron ODT 4 MG TAB.RAPDIS TRANSLINGU (21:31)
--- NOTE | 2021-07-05 21:31 | PHA.MEDREC ---
Pharmacy Consult ? Medication Reconciliation Pharmacy has completed the medication reconciliation.
[2021-07-05] MEDS: HYDROmorphone HCl 1 MG/ML SYRINGE 0.5 MG IVPUSH (21:36)
--- NOTE | 2021-07-05 21:39 | PC.NURSE ---
patient a&ox3, pt medicated for nausea and pain per request, 1:1 sitter at bedside, registered nurse cardiac intact, vss, pt calm/cooperative and watching tv, ivf bolus running slowly, will start ordered d5 1/2 after bolus have completed, call ibrahim within reach, will continue to monitor.
[2021-07-05 21:58] VITALS: BP 117/61; PULSE 74; RESP 18; O2SAT 92
[2021-07-05] MEDS: Heparin Sodium,Porcine 5,000 UNIT/ML VIAL 5000 UNIT SUBCUT (22:20)
[2021-07-05] MEDS: Dextrose 5 % and 0.45 % NaCl 1,000 ML 100 ML IVCONT (22:55)
[2021-07-05 23:11] LABS: Troponin-I High Sensitivity 17.9 ng/L (<3.5-35.0)
[2021-07-06] VITALS (8 sets, daily range): BP systolic 124–142; BP diastolic 71–80; PULSE 81–92; RESP 15–20; TEMP 36.7; O2SAT 95–97
--- NOTE | 2021-07-06 00:07 | PC.NURSE ---
Took report from Josefina to assume care of Pt, Pt resting watching tv, sitter at bedside, safety maintained, this RN continues to monitor.
[2021-07-06] MEDS: Zolpidem Tartrate 5 MG TABLET 10 MG PO ×2 (00:44→21:46)
[2021-07-06] MEDS: cefTRIAXone sodium 1 GM in 0.9 % Sodium Chloride 50 ML IV ×2 (00:44→21:45)
[2021-07-06] MEDS: HYDROmorphone HCl 1 MG/ML SYRINGE 0.5 MG IVPUSH ×5 (00:45→21:44)
[2021-07-06] MEDS: Heparin Sodium,Porcine 5,000 UNIT/ML VIAL 5000 UNIT SUBCUT (06:14)
[2021-07-06 06:22] LABS: MANUAL DIFF FLAG NO
[2021-07-06 06:23] LABS: Basophils Percent Auto 0.1 % (0-2); Eosinophils Absolute Auto 0.1 X10*3/uL (0.0-0.4); Eosinophils Percent Auto 1.1 % (0-4); Hematocrit 34.2 % (42.0-52.0); Hemoglobin 11.9 g/dl (14.0-18.0); Imm Gran Abs Auto 0.05 X10*3/uL (0.00-0.03); Imm Gran Pct Auto 0.7 % (0.0-0.4); Mean Corpuscular HGB Conc 34.8 g/dl (31.0-36.0); Mean Corpuscular Hemoglobin 30.3 pg (27.0-33.0); Mean Platelet Volume 9.5 fL (9.4-12.4); Monocytes Absolute Auto 0.3 X10*3/uL (0.1-1.2); Monocytes Percent Auto 4.7 % (2-11); Neutrophils Absolute Auto 5.8 x10*3/uL (2.0-8.3); Neutrophils Percent Auto 79.4 % (45-73); Platelet Count 216 X10*3/uL (160-400); Red Blood Count 3.93 X10*6/uL (4.60-5.80); Red Cell Distribution Width 14.5 % (11.0-16.0); White Blood Count 7.2 X10*3/uL (4.8-10.8)
--- NOTE | 2021-07-06 06:29 | PC.NURSE ---
Pt resting watching tv, sitter at bedside, Pt slept through the night, safety maintained, this RN continues to monitor.
[2021-07-06 06:37] LABS: Alanine Aminotransferase 1530 U/L (0-40); Albumin Level 3.1 g/dL (3.5-5.0); Alkaline Phosphatase 70 U/L (39-117); Anion Gap 13 (12-20); Aspartate Amino Transferase 1520 U/L (5-37); Bilirubin Direct 0.2 mg/dL (0.0-0.5); Bilirubin Total 0.5 mg/dL (0.0-1.0); Blood Urea Nitrogen 11 mg/dL (9-16); Calcium 7.6 mg/dL (8.4-10.2); Carbon Dioxide 27 mmol/L (22-29); Chloride 96 mmol/L (96-108); Creatinine Clr Calc Pharmacy 96.5; Estimated Glomerular Filt Rate > 60; Glucose Random 138 mg/dL (60-115); Potassium 2.8 mmol/L (3.3-5.1); Sodium 133 mmol/L (135-145)
[2021-07-06 08:26] LABS: Magnesium 1.9 mg/dL (1.6-2.6)
[2021-07-06] MEDS: Potassium Chloride/H20 10 MEQ/100 ML PIGGYBACK 100 MEQ IV ×4 (08:54→15:25)
[2021-07-06] MEDS: 0.9 % Sodium Chloride 1,000 ML 125 ML IVCONT ×2 (08:55→15:58)
--- NOTE | 2021-07-06 09:02 | MHC.CARE ---
Pt was initially found IPLOC and now medically admitted. Please consult CARE Team when medically cleared for assessment and treatment recommendations.
[2021-07-06] MEDS: Famotidine/PF 20 MG/2 ML VIAL IVPUSH ×2 (10:26→21:45)
--- NOTE | 2021-07-06 10:54 | HO.PM.IMPN ---
Subjective Subjective Date of Service: 07/06/21 Interval History: This history was taken in Welsh from the patient. Endorses SI Admits use of cocaine + heroin C/o chest discomfort No fever No cough No dyspnea Endorses dysphagia to liquids and solids Review of Systems Review of Systems: Yes all other systems are reviewed and are negative Physical Exam Vital Signs: Vital Signs: Last Vital Signs Temp 98.1 F 07/06/21 05:48 Pulse 88 07/06/21 10:30 Resp 17 07/06/21 10:30 BP 139/78 07/06/21 10:30 Pulse Ox 97 07/06/21 10:30 BMI result Body Mass Index 32.1 Gen: in no acute distress HEENT: sclera anicteric, moist mucus membranes Neck: supple Lungs: clear to auscultation bilaterally Heart: regular rate and rhythm, no murmurs Abd: soft, non-tender, non-distended Ext: no edema Skin: warm/well-perfused Neuro: alert and oriented x3, no focal findings Psych: appropriate affect Objective Data Active Medications Enoxaparin Sodium (Enoxaparin Sodium 40 Mg/0.4 Ml Syringe) 40 mg SUBCUT Q24H [facility] Famotidine (Famotidine/Pf 20 Mg/2 Ml Vial) 20 mg IVPUSH BID [facility] Last Admin: 07/06/21 10:26 Dose: 20 mg Documented by: SPENCER Ferrous Sulfate (Ferrous Sulfate 300 Mg/5 Ml Liquid) 300 mg PO DAILY [facility] Last Admin: 07/06/21 10:18 Dose: Not Given Documented by: SPENCER Non-Admin Reason: Patient Condition Contraindication Folic Acid (Folic Acid 1 Mg Tablet) 1 mg PO DAILY [facility] Stop: 07/09/21 08:59 Last Admin: 07/06/21 10:17 Dose: Not Given Documented by: SPENCER Non-Admin Reason: Patient Condition Contraindication Hydromorphone HCl (Hydromorphone Hcl 1 Mg/Ml Syringe) 0.5 mg IVPUSH Q4H PRN; Protocol PRN Reason: Pain, Severe (Pain Scale 7-10) Last Admin: 07/06/21 06:19 Dose: 0.5 mg Documented by: ROSMERY Ceftriaxone Sodium 1 gm/ (Sodium Chloride) 50 mls @ 100 mls/hr IV Q24H [facility] Last Infusion: 07/06/21 01:14 Dose: 0 mls/hr Documented by: ROSMERY Sodium Chloride (Ns) 1,000 mls @ 125 mls/hr IVCONT .Q8H [facility] Last Admin: 07/06/21 08:55 Dose: 125 mls/hr Documented by: SPENCER Potassium Chloride () 10 meq in 100 mls @ 100 mls/hr IV Q1H [facility] Stop: 07/06/21 12:59 Last Admin: 07/06/21 10:26 Dose: 100 mls/hr Documented by: SPENCER Melatonin (Melatonin 3 Mg Tablet) 6 mg PO BEDTIME PRN PRN Reason: Insomnia Multivitamins/Vitamin C (Multivitamin Tablet) 1 tab PO DAILY [facility] Stop: 07/09/21 08:59 Last Admin: 07/06/21 10:17 Dose: Not Given Documented by: SPENCER Non-Admin Reason: Patient Condition Contraindication Ondansetron HCl (Ondansetron Hcl 4 Mg/2 Ml Vial) 4 mg IVPUSH Q4H PRN PRN Reason: nauseea/vomiting Pharmacy Consult (Consult Rx Perform Med Rec) 1 each MISCELLANE ONCE PRN PRN Reason: Consult order Senna (Sennosides 8.6 Mg Tablet) 17.2 mg PO BEDTIME PRN PRN Reason: Constipation Sodium Chloride (0.9 % Sodium Chloride Flush 3 Ml Syringe) 3 ml IVFLUSH QSHIFT [facility] Last Admin: 07/06/21 07:40 Dose: Not Given Documented by: SPENCER Non-Admin Reason: IV Running Thiamine HCl (Thiamine Hcl 100 Mg Tablet) 100 mg PO DAILY [facility] Stop: 07/09/21 08:59 Last Admin: 07/06/21 10:22 Dose: Not Given Documented by: SPENCER Non-Admin Reason: Patient Condition Contraindication Zolpidem Tartrate (Zolpidem Tartrate 5 Mg Tablet) 10 mg PO BEDTIME PRN PRN Reason: Insomnia Last Admin: 07/06/21 00:44 Dose: 10 mg Documented by: ROSMERY Labs CBC & Chem 7: 07/06/21 06:15 07/06/21 06:15 Labs: Laboratory Results - last 24 hr 07/05/21 07/05/21 07/05/21 09:00 10:46 10:46 MCV MCH MCHC RDW Plt Count MPV Immature Gran % (Auto) Neut % (Auto) Lymph % (Auto) Hood % (Auto) Eos % (Auto) Baso % (Auto) Lymph # (Auto) Hood # (Auto) Eos # (Auto) Baso # (Auto) Abs Immat Gran (auto) Absolute Neuts (auto) Absolute Nucleated RBC Nucleated RBC % (auto) Anion Gap Estim Creat Clear Calc Estimated GFR Random Glucose Calcium Magnesium Total Bilirubin Direct Bilirubin AST ALT Alkaline Phosphatase Total Creatine Kinase 4757 H D Troponin I High Sens Total Protein Albumin Urine Color YELLOW Urine Appearance CLEAR Urine pH 6.0 Ur Specific Mamou <= 1.005 Urine Protein NEG Urine Glucose (UA) NEG Urine Ketones 5 Urine Blood 3+ H Urine Nitrite NEG Ur Leukocyte Esterase 2+ H Urine RBC 1-4 Urine WBC 10-14 H Ur Squamous Epith Cells TRACE Urine Bacteria TRACE Urine Opiates Screen POSITIVE H Urine Fentanyl Screen POSITIVE H Ur Barbiturates Screen Not Detected Ur Phencyclidine Scrn Not Detected Ur Amphetamines Screen Not Detected U Benzodiazepines Scrn Not Detected Urine Cocaine Screen POSITIVE H U Marijuana (THC) Screen Not Detected 07/05/21 07/05/21 07/05/21 20:12 20:12 22:43 MCV MCH MCHC RDW Plt Count MPV Immature Gran % (Auto) Neut % (Auto) Lymph % (Auto) Hood % (Auto) Eos % (Auto) Baso % (Auto) Lymph # (Auto) Hood # (Auto) Eos # (Auto) Baso # (Auto) Abs Immat Gran (auto) Absolute Neuts (auto) Absolute Nucleated RBC Nucleated RBC % (auto) Anion Gap 15 Estim Creat Clear Calc 62.5 Estimated GFR 53 Random Glucose 98 Calcium 8.3 L D Magnesium Total Bilirubin 0.5 Direct Bilirubin AST 2244 H ALT 1773 H Alkaline Phosphatase 83 D Total Creatine Kinase Troponin I High Sens 18.2 D 17.9 Total Protein 6.6 Albumin 3.6 Urine Color Urine Appearance Urine pH Ur Specific Mamou Urine Protein Urine Glucose (UA) Urine Ketones Urine Blood Urine Nitrite Ur Leukocyte Esterase Urine RBC Urine WBC Ur Squamous Epith Cells Urine Bacteria Urine Opiates Screen Urine Fentanyl Screen Ur Barbiturates Screen Ur Phencyclidine Scrn Ur Amphetamines Screen U Benzodiazepines Scrn Urine Cocaine Screen U Marijuana (THC) Screen 04/05/2807/06/21 07/06/21 06:15 06:15 06:15 MCV 87.0 MCH 30.3 MCHC 34.8 RDW 14.5 Plt Count 216 MPV 9.5 Immature Gran % (Auto) 0.7 H Neut % (Auto) 79.4 H Lymph % (Auto) 14.0 L Hood % (Auto) 4.7 Eos % (Auto) 1.1 Baso % (Auto) 0.1 Lymph # (Auto) 1.0 L Hood # (Auto) 0.3 Eos # (Auto) 0.1 Baso # (Auto) 0.0 Abs Immat Gran (auto) 0.05 H Absolute Neuts (auto) 5.8 Absolute Nucleated RBC 0.000 Nucleated RBC % (auto) 0.0 Anion Gap Estim Creat Clear Calc Estimated GFR Random Glucose Calcium Magnesium Total Bilirubin 0.5 Direct Bilirubin 0.2 AST 1520 H ALT 1530 H Alkaline Phosphatase 70 Total Creatine Kinase 1231 H D Troponin I High Sens Total Protein 6.0 L Albumin 3.1 L Urine Color Urine Appearance Urine pH Ur Specific Mamou Urine Protein Urine Glucose (UA) Urine Ketones Urine Blood Urine Nitrite Ur Leukocyte Esterase Urine RBC Urine WBC Ur Squamous Epith Cells Urine Bacteria Urine Opiates Screen Urine Fentanyl Screen Ur Barbiturates Screen Ur Phencyclidine Scrn Ur Amphetamines Screen U Benzodiazepines Scrn Urine Cocaine Screen U Marijuana (THC) Screen 07/06/21 06:15 MCV MCH MCHC RDW Plt Count MPV Immature Gran % (Auto) Neut % (Auto) Lymph % (Auto) Hood % (Auto) Eos % (Auto) Baso % (Auto) Lymph # (Auto) Hood # (Auto) Eos # (Auto) Baso # (Auto) Abs Immat Gran (auto) Absolute Neuts (auto) Absolute Nucleated RBC Nucleated RBC % (auto) Anion Gap 13 Estim Creat Clear Calc 96.5 Estimated GFR > 60 Random Glucose 138 H D Calcium 7.6 L D Magnesium 1.9 Total Bilirubin Direct Bilirubin AST ALT Alkaline Phosphatase Total Creatine Kinase Troponin I High Sens Total Protein Albumin Urine Color Urine Appearance Urine pH Ur Specific Mamou Urine Protein Urine Glucose (UA) Urine Ketones Urine Blood Urine Nitrite Ur Leukocyte Esterase Urine RBC Urine WBC Ur Squamous Epith Cells Urine Bacteria Urine Opiates Screen Urine Fentanyl Screen Ur Barbiturates Screen Ur Phencyclidine Scrn Ur Amphetamines Screen U Benzodiazepines Scrn Urine Cocaine Screen U Marijuana (THC) Screen Impressions Chest X-Ray 07/05/21 19:04 IMPRESSION: Elevated right hemidiaphragm. Interval mild cardiac enlargement. No acute intrathoracic disease. When the patient is stable recommend a PA and lateral chest radiograph for further evaluation Abdomen Ultrasound 07/05/21 23:45 IMPRESSION: Normal ultrasound right upper quadrant abdomen. Assessment and Plan (1) Rhabdomyolysis: Status: Acute (2) NAOMI (acute kidney injury): Status: Acute Plan hospital d#2 51yo M with MDD, anxiety, and polysubstance abuse presenting with SI and generalized body aches and found to have NAOMI, rhabdomyolysis, and transaminasemia # rhabdomyolysis - continue IV fluid hydration, monitor CPK/BMP # NAOMI - resolved after fluid hydration, likely cocaine-induced vasoconstriction # transaminasemia - viral hepatitis workup, trend LFTs, GI consult pending # cardiomegaly - will check TTE. hs Tn-I indeterminate/flat, likely due to cocaine/NAOMI # dysphagia - recent CT showed distal esophageal thickening. GI consult pending re possible EGD. [employer] ordered. # hypoK - replete, monitor # UTI - ceftriaxone d#2, follow UCx # opioid abuse - Addiction Medicine + CARE Team consults # ETOH abuse - CIWA, prn lorazepam # SI - 1:1, psychiatric evaluation when medically cleared # VTE ppx - LMWH Quality Stroke Does the patient have a stroke diagnosis?: No VTE Prior VTE?: No VTE Risk Level:: Medical - moderate - high VTE Device Contraindication: Treatment Not Indicated VTE Drug Contraindication: N/A - Med Ordered
[2021-07-06] MEDS: Enoxaparin Sodium 40 MG/0.4 ML SYRINGE SUBCUT (13:07)
--- NOTE | 2021-07-06 13:35 | CONS_ITS ---
DATE OF SERVICE: 07/06/2021 REFERRING PHYSICIAN: Danial Lopez MD REASON FOR CONSULTATION: Elevated LFTs and esophageal thickening. HISTORY OF PRESENT ILLNESS: The patient is a pleasant 51-year-old man who was admitted to the hospital on July 05 after presenting to the emergency room with psychiatric complaints. He was noted to have elevation of his serum CPK and admitted to the hospital with a diagnosis of rhabdomyolysis. The patient denies any history of liver problems. He denies drug use, although his urine tox screen was positive for opiates, fentanyl, and cocaine. He denies any syncopal event. Evaluation in the emergency department included liver function tests, which showed an AST of 2244 and an ALT of 1773. These were repeated this morning and have improved as his CPK. Imaging studies were undertaken including an abdominal ultrasound yesterday, which showed normal liver contour and echogenicity. The gallbladder was normal as well. Previous imaging with CT scanning on July 01 showed hypoattenuation of the hepatic parenchyma consistent with steatosis. He was also noted to have distal esophageal thickening, which has been present on previous examinations. He does have a history of achalasia and has undergone previous treatment with Heller myotomy and multiple balloon dilations. He is followed by Dr. Watson. PAST MEDICAL HISTORY: 1. Achalasia as above. 2. Substance abuse. 3. Anxiety/depression. 4. Alcohol abuse. 5. Chest pain. CURRENT MEDICATIONS: Current medication list is reviewed in the chart. ALLERGIES: THERE ARE MULTIPLE MEDICATION ALLERGIES THAT ARE REVIEWED. FAMILY HISTORY: This is reviewed with electronic medical record and is noncontributory. SOCIAL HISTORY: The patient denies using any substances except tobacco. REVIEW OF SYSTEMS: This is not reliably obtainable. PHYSICAL EXAMINATION: GENERAL: Shows a pleasant male, lying comfortably on the stretcher in the emergency department. VITAL SIGNS: Reviewed in the electronic medical record and are stable. SKIN: Anicteric. HEENT: Shows no scleral icterus. NECK: Without lymphadenopathy or thyromegaly. LUNGS: Clear. HEART: Shows regular rate and rhythm. S1, S2. No murmur. ABDOMEN: Soft without focal masses or tenderness. Bowel sounds are present. No organomegaly is noted. EXTREMITIES: Without edema. LABORATORY DATA: Reviewed. Liver tests have improved as above. INR on 07/03 was 1.2. IMPRESSION: Elevated liver function tests. This appears likely related to drug use, although the patient denies this. His liver function tests are improving and hepatitis testing is pending. I would recommend monitoring his liver functions tests and checking an INR. He appears at his baseline as far as his swallowing an achalasia goes, and he can follow up as an outpatient with Dr. Watson for this. Thanks for asking me to see him. I will follow him in the hospital as needed. MD JEROD Price/VANESSA / [phone]
--- NOTE | 2021-07-06 14:29 | MHC.RECOVSUP ---
Recovery Support note: Patient is a 51 year old Tuvaluan speaking male who presented to [facility] ED due to command AH. This scenario writer met with patient to discuss substance use and recovery supports. Patient denies opiate use. This scenario writer pointed out patient tested positive for opiates, fentanyl and cocaine. Patient continues to deny use. Patient reports drinking 8 beers daily and is interested in cutting back on how much he drinks. Patient is open to hearing about recovery resources while in the hospital. Patient denies withdrawal symptoms at this time. This scenario writer will follow up with patient to provide recovery support resources. Discussed case with Candace HAYES.
--- NOTE | 2021-07-06 15:05 | MHC.CM.PN ---
Attempted with patient in regards to discharge planning. Patient sleeping. No family present. Will attempt to meet again. Continue to monitor for d/c needs.
--- NOTE | 2021-07-06 19:54 | PM.PSYCN ---
History of Present Illness Date of Service: 07/06/21 Chief Complaint: Transaminitis Reason for Consult: SI HPI Narrative: per 07/05 ED note: Patient not taking his meds, comes to the ED frequently, was here 2 days ago.? States he is hearing voices to slit his throat.? Has not been admitted in a while.? patient also states he is having panic attacks.? Can't sleep or eat. Patient noted to have rhabdomyolysis.? And noted to have transaminitis.? At this time patient will be admitted to the hospital.? Repeat labs show an improvement in NAOMI. pt well known to psychiatric service. on interview with psych MD in ED, pt continues to endorse SI and is interested in transfer to inpatient psych once medically stabilized. pt informed of plan to do just that and to hold restart of psych meds until he is medically stable. pt expressed agreement with plan. Past Psychiatric History: Multiple hospital stays. He has providers at [facility] Medical History Alcohol dependence Anxiety Chest pain Derangement of symphysis pubis Dysphagia GERD (gastroesophageal reflux disease) Major depressive disorder, recurrent severe without psychotic features Opioid abuse Weight loss Surgical History H/O umbilical hernia repair History of colonoscopy History of cystoscopy Family History: Sister with chronic psychosis Social History: Chronically homeless, with poor social support. Unemployed on SSI Substance History: polysubstance use disorder Diagnostics Vital Signs (24Hr): Vital Signs - 24 hr 07/05/21 19:57 07/05/21 21:58 07/06/21 00:45 Temperature 99.3 F Pulse Rate 79 74 Respiratory Rate 17 18 15 Blood Pressure 115/64 117/61 Pulse Oximetry 94 92 07/06/21 05:48 07/06/21 06:19 07/06/21 10:30 Temperature 98.1 F Pulse Rate 81 88 Respiratory Rate 16 15 17 Blood Pressure 124/71 139/78 Pulse Oximetry 97 97 07/06/21 12:38 07/06/21 16:16 Temperature Pulse Rate 86 82 Respiratory Rate 18 16 Blood Pressure 127/74 134/76 Pulse Oximetry 95 96 BMI result Body Mass Index 32.1 Labs Results: 07/06/21 06:15 07/06/21 06:15 Labs: Laboratory Results - last 48 hr 07/05/21 07/05/21 07/05/21 06:42 09:00 09:00 WBC 9.5 RBC 4.40 L Hgb 12.8 L Hct 37.6 L MCV 85.5 MCH 29.1 MCHC 34.0 RDW 13.8 Plt Count 273 MPV 9.7 Immature Gran % (Auto) 0.5 H Neut % (Auto) 80.3 H Lymph % (Auto) 14.8 L [place] % (Auto) 3.9 Eos % (Auto) 0.4 Baso % (Auto) 0.1 Lymph # (Auto) 1.4 [place] # (Auto) 0.4 Eos # (Auto) 0.0 Baso # (Auto) 0.0 Abs Immat Gran (auto) 0.05 H Absolute Neuts (auto) 7.6 Absolute Nucleated RBC 0.000 Nucleated RBC % (auto) 0.0 Sodium 128 L Potassium 3.2 L Chloride 84 L Carbon Dioxide 27 Anion Gap 20 BUN 32 H D Creatinine 2.44 H Estim Creat Clear Calc 35.6 Estimated GFR 28 Random Glucose 88 Calcium 8.9 Magnesium Total Bilirubin Direct Bilirubin AST ALT Alkaline Phosphatase Total Creatine Kinase 4757 H D Troponin I High Sens Total Protein Albumin Urine Color Urine Appearance Urine pH Ur Specific [place] Urine Protein Urine Glucose (UA) Urine Ketones Urine Blood Urine Nitrite Ur Leukocyte Esterase Urine RBC Urine WBC Ur Squamous Epith Cells Urine Bacteria Salicylates < 5.0 L Urine Opiates Screen Urine Fentanyl Screen Acetaminophen < 1 Ur Barbiturates Screen Ur Phencyclidine Scrn Ur Amphetamines Screen U Benzodiazepines Scrn Urine Cocaine Screen U Marijuana (THC) Screen Ethyl Alcohol COVID-19 (ERIN) Negative COVID-19 Clin Com See Note 07/05/21 07/05/21 07/05/21 09:00 10:46 10:46 WBC RBC Hgb Hct MCV MCH MCHC RDW Plt Count MPV Immature Gran % (Auto) Neut % (Auto) Lymph % (Auto) [place] % (Auto) Eos % (Auto) Baso % (Auto) Lymph # (Auto) [place] # (Auto) Eos # (Auto) Baso # (Auto) Abs Immat Gran (auto) Absolute Neuts (auto) Absolute Nucleated RBC Nucleated RBC % (auto) Sodium Potassium Chloride Carbon Dioxide Anion Gap BUN Creatinine Estim Creat Clear Calc Estimated GFR Random Glucose Calcium Magnesium Total Bilirubin Direct Bilirubin AST ALT Alkaline Phosphatase Total Creatine Kinase Troponin I High Sens Total Protein Albumin Urine Color YELLOW Urine Appearance CLEAR Urine pH 6.0 Ur Specific [place] <= 1.005 Urine Protein NEG Urine Glucose (UA) NEG Urine Ketones 5 Urine Blood 3+ H Urine Nitrite NEG Ur Leukocyte Esterase 2+ H Urine RBC 1-4 Urine WBC 10-14 H Ur Squamous Epith Cells TRACE Urine Bacteria TRACE Salicylates Urine Opiates Screen POSITIVE H Urine Fentanyl Screen POSITIVE H Acetaminophen Ur Barbiturates Screen Not Detected Ur Phencyclidine Scrn Not Detected Ur Amphetamines Screen Not Detected U Benzodiazepines Scrn Not Detected Urine Cocaine Screen POSITIVE H U Marijuana (THC) Screen Not Detected Ethyl Alcohol < 10 COVID-19 (ERIN) COVID-19 Global Weather 07/05/21 07/05/21 07/05/21 20:12 20:12 22:43 WBC RBC Hgb Hct MCV MCH MCHC RDW Plt Count MPV Immature Gran % (Auto) Neut % (Auto) Lymph % (Auto) [place] % (Auto) Eos % (Auto) Baso % (Auto) Lymph # (Auto) [place] # (Auto) Eos # (Auto) Baso # (Auto) Abs Immat Gran (auto) Absolute Neuts (auto) Absolute Nucleated RBC Nucleated RBC % (auto) Sodium 132 L Potassium 3.2 L Chloride 90 L Carbon Dioxide 30 H Anion Gap 15 BUN 21 H Creatinine 1.39 Estim Creat Clear Calc 62.5 Estimated GFR 53 Random Glucose 98 Calcium 8.3 L D Magnesium Total Bilirubin 0.5 Direct Bilirubin AST 2244 H ALT 1773 H Alkaline Phosphatase 83 D Total Creatine Kinase Troponin I High Sens 18.2 D 17.9 Total Protein 6.6 Albumin 3.6 Urine Color Urine Appearance Urine pH Ur Specific [place] Urine Protein Urine Glucose (UA) Urine Ketones Urine Blood Urine Nitrite Ur Leukocyte Esterase Urine RBC Urine WBC Ur Squamous Epith Cells Urine Bacteria Salicylates Urine Opiates Screen Urine Fentanyl Screen Acetaminophen Ur Barbiturates Screen Ur Phencyclidine Scrn Ur Amphetamines Screen U Benzodiazepines Scrn Urine Cocaine Screen U Marijuana (THC) Screen Ethyl Alcohol COVID-19 (ERIN) COVID-19 Global Weather 07/06/21 07/06/21 07/06/21 06:15 06:15 06:15 WBC 7.2 RBC 3.93 L Hgb 11.9 L Hct 34.2 L MCV 87.0 MCH 30.3 MCHC 34.8 RDW 14.5 Plt Count 216 MPV 9.5 Immature Gran % (Auto) 0.7 H Neut % (Auto) 79.4 H Lymph % (Auto) 14.0 L [place] % (Auto) 4.7 Eos % (Auto) 1.1 Baso % (Auto) 0.1 Lymph # (Auto) 1.0 L [place] # (Auto) 0.3 Eos # (Auto) 0.1 Baso # (Auto) 0.0 Abs Immat Gran (auto) 0.05 H Absolute Neuts (auto) 5.8 Absolute Nucleated RBC 0.000 Nucleated RBC % (auto) 0.0 Sodium Potassium Chloride Carbon Dioxide Anion Gap BUN Creatinine Estim Creat Clear Calc Estimated GFR Random Glucose Calcium Magnesium Total Bilirubin 0.5 Direct Bilirubin 0.2 AST 1520 H ALT 1530 H Alkaline Phosphatase 70 Total Creatine Kinase 1231 H D Troponin I High Sens Total Protein 6.0 L Albumin 3.1 L Urine Color Urine Appearance Urine pH Ur Specific [place] Urine Protein Urine Glucose (UA) Urine Ketones Urine Blood Urine Nitrite Ur Leukocyte Esterase Urine RBC Urine WBC Ur Squamous Epith Cells Urine Bacteria Salicylates Urine Opiates Screen Urine Fentanyl Screen Acetaminophen Ur Barbiturates Screen Ur Phencyclidine Scrn Ur Amphetamines Screen U Benzodiazepines Scrn Urine Cocaine Screen U Marijuana (THC) Screen Ethyl Alcohol COVID-19 (ERIN) COVID-19 Clin Com 07/06/21 06:15 WBC RBC Hgb Hct MCV MCH MCHC RDW Plt Count MPV Immature Gran % (Auto) Neut % (Auto) Lymph % (Auto) [place] % (Auto) Eos % (Auto) Baso % (Auto) Lymph # (Auto) [place] # (Auto) Eos # (Auto) Baso # (Auto) Abs Immat Gran (auto) Absolute Neuts (auto) Absolute Nucleated RBC Nucleated RBC % (auto) Sodium 133 L Potassium 2.8 L Chloride 96 Carbon Dioxide 27 Anion Gap 13 BUN 11 Creatinine 0.90 Estim Creat Clear Calc 96.5 Estimated GFR > 60 Random Glucose 138 H D Calcium 7.6 L D Magnesium 1.9 Total Bilirubin Direct Bilirubin AST ALT Alkaline Phosphatase Total Creatine Kinase Troponin I High Sens Total Protein Albumin Urine Color Urine Appearance Urine pH Ur Specific [place] Urine Protein Urine Glucose (UA) Urine Ketones Urine Blood Urine Nitrite Ur Leukocyte Esterase Urine RBC Urine WBC Ur Squamous Epith Cells Urine Bacteria Salicylates Urine Opiates Screen Urine Fentanyl Screen Acetaminophen Ur Barbiturates Screen Ur Phencyclidine Scrn Ur Amphetamines Screen U Benzodiazepines Scrn Urine Cocaine Screen U Marijuana (THC) Screen Ethyl Alcohol COVID-19 (ERIN) COVID-19 Clin Com Imaging Radiology Impressions: ITS Impressions Chest X-Ray 07/05/21 19:04 IMPRESSION: Elevated right hemidiaphragm. Interval mild cardiac enlargement. No acute intrathoracic disease. When the patient is stable recommend a PA and lateral chest radiograph for further evaluation Abdomen Ultrasound 07/05/21 23:45 IMPRESSION: Normal ultrasound right upper quadrant abdomen. Mental Status Exam Mental Status Exam Narrative: lying in hospital bed in ED. cooperative with interview. no PMA/PMR. speech with latin accent, nml rate, amount, loudness, tone, latency. thoughts linear and logical. affect constricted, normo-intense, non-labile. mood depressed. +SI with plan to cut self in neck. no HI/AVH expressed. Medications Medications Current Medications Enoxaparin Sodium (Enoxaparin Sodium 40 Mg/0.4 Ml Syringe) 40 mg SUBCUT Q24H [facility] Last Admin: 07/06/21 13:07 Dose: 40 mg Documented by: Famotidine (Famotidine/Pf 20 Mg/2 Ml Vial) 20 mg IVPUSH BID [facility] Last Admin: 07/06/21 10:26 Dose: 20 mg Documented by: Ferrous Sulfate (Ferrous Sulfate 300 Mg/5 Ml Liquid) 300 mg PO DAILY [facility] Last Admin: 07/06/21 10:18 Dose: Not Given Documented by: Folic Acid (Folic Acid 1 Mg Tablet) 1 mg PO DAILY [facility] Stop: 07/09/21 08:59 Last Admin: 07/06/21 10:17 Dose: Not Given Documented by: Hydromorphone HCl (Hydromorphone Hcl 1 Mg/Ml Syringe) 0.5 mg IVPUSH Q4H PRN; Protocol PRN Reason: Pain, Severe (Pain Scale 7-10) Last Admin: 07/06/21 17:06 Dose: 0.5 mg Documented by: Ceftriaxone Sodium 1 gm/ (Sodium Chloride) 50 mls @ 100 mls/hr IV Q24H [facility] Last Infusion: 07/06/21 01:14 Dose: Infused Documented by: Sodium Chloride (Ns) 1,000 mls @ 125 mls/hr IVCONT .Q8H [facility] Last Admin: 07/06/21 15:58 Dose: 125 mls/hr Documented by: Melatonin (Melatonin 3 Mg Tablet) 6 mg PO BEDTIME PRN PRN Reason: Insomnia Multivitamins/Vitamin C (Multivitamin Tablet) 1 tab PO DAILY [facility] Stop: 07/09/21 08:59 Last Admin: 07/06/21 10:17 Dose: Not Given Documented by: Ondansetron HCl (Ondansetron Hcl 4 Mg/2 Ml Vial) 4 mg IVPUSH Q4H PRN PRN Reason: nauseea/vomiting Pharmacy Consult (Consult Rx Perform Med Rec) 1 each MISCELLANE ONCE PRN PRN Reason: Consult order Senna (Sennosides 8.6 Mg Tablet) 17.2 mg PO BEDTIME PRN PRN Reason: Constipation Sodium Chloride (0.9 % Sodium Chloride Flush 3 Ml Syringe) 3 ml IVFLUSH QSHIFT [facility] Last Admin: 07/06/21 15:35 Dose: Not Given Documented by: Thiamine HCl (Thiamine Hcl 100 Mg Tablet) 100 mg PO DAILY [facility] Stop: 07/09/21 08:59 Last Admin: 07/06/21 10:22 Dose: Not Given Documented by: Zolpidem Tartrate (Zolpidem Tartrate 5 Mg Tablet) 10 mg PO BEDTIME PRN PRN Reason: Insomnia Last Admin: 07/06/21 00:44 Dose: 10 mg Documented by: Allergies Allergies Allergy/AdvReac Type Severity Reaction Status Date / Time trazodone [TRAZODONE] Allergy Severe FACIAL Verified 06/23/21 08:15 SWELLING, swelling cat dander [CATS] Allergy Intermediate FACIAL Verified 06/23/21 08:15 ITCHING doxepin [DOXEPIN] Allergy Intermediate WEIGHT Verified 06/23/21 08:15 GAIN/LEG SWELLING Iodinated Contrast Media Allergy Intermediate ITCHING Verified 06/23/21 08:15 [IV DYE, IODINE CONTAINING CONTRAST ] nitroglycerin [NITROGLYCERIN] Allergy Unknown UNKNOWN Verified 06/23/21 08:15 tramadol [TRAMADOL] Allergy Unknown UNKNOWN, Verified 06/23/21 08:15 dry mouth ibuprofen [From MOTRIN] AdvReac Intermediate GI UPSET Verified 06/23/21 08:15 quetiapine [From SEROQUEL] AdvReac Intermediate FACIAL Verified 06/23/21 08:15 SWELLING aspirin [ASPIRIN] AdvReac Mild Stomach Verified 06/23/21 08:15 Upset Ibuprofen Allergy Unknown stomach Uncoded 01/30/21 10:12 ache IV contrast Allergy Unknown Unknown Uncoded 01/30/21 10:12 Motrin Allergy Unknown stomach Uncoded 01/30/21 10:12 pain Assessment & Plan Assessment & Plan (1) Schizoaffective disorder: Status: Acute Code(s): F25.9 - Schizoaffective disorder, unspecified Plan continue mgmt of medical problems. hold psych meds until medically stable. transfer to inpatient psych once medically stable. 1:1 until on psych unit. I spent ___40___ minutes with the patient and/or on the patient floor today, greater than?50% of which was spent counseling/coordinating care.
[2021-07-06] MEDS: Melatonin 3 MG TABLET 6 MG PO (21:46)
[2021-07-07] VITALS (7 sets, daily range): BP systolic 126–167; BP diastolic 69–95; PULSE 69–97; RESP 14–20; TEMP 35.3–37.2; O2SAT 91–100
[2021-07-07] MEDS: 0.9 % Sodium Chloride 1,000 ML 125 ML IVCONT ×3 (01:13→22:07)
[2021-07-07 06:11] LABS: INTERNATIONAL NORM RATIO 1.3 (0.9-1.1)
[2021-07-07 06:49] LABS: Alanine Aminotransferase 899 U/L (0-40); Albumin Level 2.8 g/dL (3.5-5.0); Alkaline Phosphatase 59 U/L (39-117); Anion Gap 12 (12-20); Aspartate Amino Transferase 396 U/L (5-37); Bilirubin Total 0.4 mg/dL (0.0-1.0); Blood Urea Nitrogen 4 mg/dL (9-16); Calcium 7.7 mg/dL (8.4-10.2); Carbon Dioxide 28 mmol/L (22-29); Chloride 102 mmol/L (96-108); Creatinine Clr Calc Pharmacy 120.6; Estimated Glomerular Filt Rate > 60; Glucose Random 88 mg/dL (60-115); Magnesium 1.5 mg/dL (1.6-2.6); Sodium 139 mmol/L (135-145); Total Protein 5.3 g/dL (6.5-8.0)
[2021-07-07] MEDS: Magnesium Sulfate/H2O 2 GM/50 ML PIGGYBACK IV (08:02)
[2021-07-07] MEDS: Famotidine/PF 20 MG/2 ML VIAL IVPUSH ×2 (08:12→22:02)
[2021-07-07] MEDS: Multivitamin TABLET 1 TAB PO (08:13)
[2021-07-07] MEDS: Folic Acid 1 MG TABLET PO (08:13)
[2021-07-07] MEDS: Thiamine HCL 100 MG TABLET PO (08:13)
[2021-07-07] MEDS: 0.9 % Sodium Chloride Flush 3 ML SYRINGE IVFLUSH ×2 (08:13→23:55)
[2021-07-07] MEDS: HYDROmorphone HCl 1 MG/ML SYRINGE 0.5 MG IVPUSH ×3 (08:17→22:02)
--- NOTE | 2021-07-07 08:34 | MHC.CM.PN ---
PATIENT HCP ON FILE AND VERIFIED. NO DME OR VNA SERVICES, BUT DOES HAVE MENTAL HEALTH AND PSYCHIATRIC SERVICES AT [facility]. PER REVIEW OF NOTES, PLAN IS POTENTIAL INPATIENT PSYCHIATRIC TREATMENT FOR MEDICATION MANAGEMENT. CASE MANAGEMENT CONTACT CARD LEFT WITH PATIENT. NAMES WRITTEN ON WHITE BOARD
[2021-07-07] MEDS: Potassium Chloride/H20 10 MEQ/100 ML PIGGYBACK 100 MEQ IV ×2 (09:38→10:49)
--- NOTE | 2021-07-07 09:39 | P.PNIM_ITS ---
Subjective Subjective Date of Service: 07/07/21 Interval History: This history was taken in [place] from the patient. C/o chest wall pain, worse with palpation Eager to get to psychiatry Chronic dysphagia due to achalasia, sees GI Dr Watson Review of Systems Review of Systems: Yes all other systems are reviewed and are negative Physical Exam Vital Signs: Vital Signs: Last Vital Signs Temp 97.3 F 07/07/21 07:48 Pulse 94 07/07/21 07:48 Resp 17 07/07/21 07:48 BP 136/71 07/07/21 07:48 Pulse Ox 97 07/07/21 07:48 BMI result Body Mass Index 32.1 Gen: in no acute distress HEENT: sclera anicteric, moist mucus membranes Neck: supple Lungs: clear to auscultation bilaterally Heart: regular rate and rhythm, no murmurs, chest wall tender to palpation along both sternal borders Abd: soft, non-tender, non-distended Ext: no edema Skin: warm/well-perfused Neuro: alert and oriented x3, no focal findings Psych: appropriate affect Objective Data Active Medications Enoxaparin Sodium (Enoxaparin Sodium 40 Mg/0.4 Ml Syringe) 40 mg SUBCUT Q24H [facility] Last Admin: 07/06/21 13:07 Dose: 40 mg Documented by: SPENCER Famotidine (Famotidine/Pf 20 Mg/2 Ml Vial) 20 mg IVPUSH BID [facility] Last Admin: 07/07/21 08:12 Dose: 20 mg Documented by: YING Ferrous Sulfate (Ferrous Sulfate 300 Mg/5 Ml Liquid) 300 mg PO DAILY [facility] Last Admin: 07/07/21 08:22 Dose: Not Given Documented by: YING Non-Admin Reason: Patient Refused Folic Acid (Folic Acid 1 Mg Tablet) 1 mg PO DAILY [facility] Stop: 07/09/21 08:59 Last Admin: 07/07/21 08:13 Dose: 1 mg Documented by: YING Hydromorphone HCl (Hydromorphone Hcl 1 Mg/Ml Syringe) 0.5 mg IVPUSH Q4H PRN; Protocol PRN Reason: Pain, Severe (Pain Scale 7-10) Last Admin: 07/07/21 08:17 Dose: 0.5 mg Documented by: YING Ceftriaxone Sodium 1 gm/ (Sodium Chloride) 50 mls @ 100 mls/hr IV Q24H [facility] Last Infusion: 07/06/21 22:29 Dose: 0 mls/hr Documented by: MICHAELA Sodium Chloride (Ns) 1,000 mls @ 125 mls/hr IVCONT .Q8H [facility] Last Admin: 07/07/21 01:13 Dose: 125 mls/hr Documented by: MICHAELA Potassium Chloride () 10 meq in 100 mls @ 100 mls/hr IV Q1H [facility] Stop: 07/07/21 09:59 Melatonin (Melatonin 3 Mg Tablet) 6 mg PO BEDTIME PRN PRN Reason: Insomnia Last Admin: 07/06/21 21:46 Dose: 6 mg Documented by: MICHAELA Multivitamins/Vitamin C (Multivitamin Tablet) 1 tab PO DAILY [facility] Stop: 07/09/21 08:59 Last Admin: 07/07/21 08:13 Dose: 1 tab Documented by: YING Ondansetron HCl (Ondansetron Hcl 4 Mg/2 Ml Vial) 4 mg IVPUSH Q4H PRN PRN Reason: nauseea/vomiting Pharmacy Consult (Consult Rx Perform Med Rec) 1 each MISCELLANE ONCE PRN PRN Reason: Consult order Senna (Sennosides 8.6 Mg Tablet) 17.2 mg PO BEDTIME PRN PRN Reason: Constipation Sodium Chloride (0.9 % Sodium Chloride Flush 3 Ml Syringe) 3 ml IVFLUSH QSHIFT [facility] Last Admin: 07/07/21 08:13 Dose: 3 ml Documented by: YING Thiamine HCl (Thiamine Hcl 100 Mg Tablet) 100 mg PO DAILY [facility] Stop: 07/09/21 08:59 Last Admin: 07/07/21 08:13 Dose: 100 mg Documented by: YING Zolpidem Tartrate (Zolpidem Tartrate 5 Mg Tablet) 10 mg PO BEDTIME PRN PRN Reason: Insomnia Last Admin: 07/06/21 21:46 Dose: 10 mg Documented by: MICHAELA Labs CBC & Chem 7: 07/06/21 06:15 07/07/21 05:12 Labs: Laboratory Results - last 24 hr 07/07/21 07/07/21 05:12 05:12 PT 15.0 H INR 1.3 H Anion Gap 12 Estim Creat Clear Calc 120.6 Estimated GFR > 60 Random Glucose 88 D Calcium 7.7 L Magnesium 1.5 L Total Bilirubin 0.4 AST 396 H ALT 899 H Alkaline Phosphatase 59 Total Creatine Kinase 386 H D Total Protein 5.3 L Albumin 2.8 L Microbiology Microbiology Results: Microbiology 07/06/21 12:12 Urine Culture - Final Urine clean catch - Clean Catch Midstream 07/05/21 22:43 Blood Culture - Preliminary Blood - Venous No growth after 24 hours. 07/05/21 22:43 Blood Culture - Preliminary Blood - Venous No growth after 24 hours. Assessment and Plan (1) Rhabdomyolysis: Status: Acute (2) NAOMI (acute kidney injury): Status: Acute Plan hospital d#3 51yo M with MDD, anxiety, and polysubstance abuse presenting with SI and generalized body aches and found to have NAOMI, rhabdomyolysis, and transaminasemia # rhabdomyolysis - continue IV fluid hydration, monitor CPK/BMP # NAOMI - resolved after fluid hydration, likely cocaine-induced vasoconstriction # transaminasemia - viral hepatitis workup, monitor LFTs which are improving. some component could be due to rhabdomyolysis. GI consulted. # cardiomegaly - will check TTE. hs Tn-I indeterminate/flat, likely due to cocaine/NAOMI # atypical chest pain - likely MSK; lidocaine patch # achalasia, s/p Heller myotomy + multiple balloon dilations - outpt GI f/u. [employer] evaluation. # hypoK - replete, monitor # hypoMg - replete, monitor # UTI, not - d/c ceftriaxone # opioid abuse - Addiction Medicine + CARE Team consults # ETOH abuse - CIWA, prn lorazepam # SI - 1:1, psychiatric evaluation when medically cleared # VTE ppx - LMWH In my clinical judgment, the patient requires continued hospitalization for the following reasons:IV fluids, lab monitoring, section 12 hold Quality Stroke Does the patient have a stroke diagnosis?: No VTE Prior VTE?: No VTE Risk Level:: Medical - moderate - high VTE Device Contraindication: Treatment Not Indicated VTE Drug Contraindication: N/A - Med Ordered
[2021-07-07] MEDS: Lidocaine 4 % Patch ADH..PATCH 1 PATCH TRANSDERMA (10:43)
[2021-07-07] MEDS: Enoxaparin Sodium 40 MG/0.4 ML SYRINGE SUBCUT (14:03)
[2021-07-07] MEDS: Zolpidem Tartrate 5 MG TABLET 10 MG PO (22:06)
[2021-07-08] VITALS (8 sets, daily range): BP systolic 141–163; BP diastolic 67–96; PULSE 78–100; RESP 14–20; TEMP 36.4–37.3; O2SAT 96–99
[2021-07-08] MEDS: 0.9 % Sodium Chloride 1,000 ML 125 ML IVCONT (05:42)
[2021-07-08] MEDS: ondansetron HCL 4 MG/2 ML VIAL IVPUSH ×2 (06:34→14:46)
[2021-07-08 06:40] LABS: Alanine Aminotransferase 597 U/L (0-40); Albumin Level 2.8 g/dL (3.5-5.0); Alkaline Phosphatase 59 U/L (39-117); Anion Gap 14 (12-20); Aspartate Amino Transferase 146 U/L (5-37); Bilirubin Total 0.5 mg/dL (0.0-1.0); Blood Urea Nitrogen 2 mg/dL (9-16); Calcium 7.7 mg/dL (8.4-10.2); Carbon Dioxide 25 mmol/L (22-29); Chloride 103 mmol/L (96-108); Creatinine Clr Calc Pharmacy 125.9; Estimated Glomerular Filt Rate > 60; Glucose Random 91 mg/dL (60-115); Magnesium 1.4 mg/dL (1.6-2.6); Potassium 3.3 mmol/L (3.3-5.1); Sodium 139 mmol/L (135-145); Total Protein 5.4 g/dL (6.5-8.0)
[2021-07-08 08:28] LABS: HBsAGNum1 0.24 S/CO (0.00-0.99); Hepatitis B Core Antibody Nonreactive (Nonreactive); Hepatitis B Surface Antigen Negative (Negative)
[2021-07-08 08:42] LABS: HBS Num1 1.97 mIU/mL (0-7.99); ~HepC Num1 0.28 S/CO (0.00-0.79); ~Hepatitis B Surface Antibody NONREACTIVE (Nonreactive); ~Hepatitis C Antibody Nonreactive (Nonreactive)
[2021-07-08 09:00] LABS: HIV AB/AG Nonreactive (Nonreactive); HIV Num 1 0.05 S/CO (0.00-0.99)
--- NOTE | 2021-07-08 09:00 | CA_ITS ---
Transthoracic Echocardiogram Patient (Last, First, Middle): Jerson Taveras, Gender: Male Date of : 1970 Age: 51 Procedure Date: 07/08/2021 Procedure Type: Transthoracic Echocardiogram Location: S3E Height: 165.1 cm Weight: 83.01 kg BSA: 1.90 m2 Heart Rate: bpm BP: 163 / 89 mmHg Radiosonde Specialist: BENNETT Solis MD: Sarah Kramer MD Inventory Administrator: Fortunato Huizar MD Symptoms: cardiomegaly, indeterminate HsTn-I Study Quality: Fair ECG Rhythm: Sinus Conclusions: - 1. Low normal LV systolic function with LVEF of 50-55% 2. Normal cardiac valvular Doppler 3. Normal RV systolic pressure 4. No gross pericardial effusion Findings Left Ventricle Normal left ventricular cavity size. There is normal left ventricular wall thickness. The left ventricular systolic function is low normal. The visually estimated ejection fraction is between 50-55%. Spectral Doppler is indicative of a normal filling pattern. There is reduce thickening of the basal inferior and basal inferoseptal wall of the LV myocardium suggestive of possible underlying wall motion abnormality Right Ventricle Normal right ventricular cavity size and systolic function. Atria Both atria are normal in size. There is no evidence of interatrial shunt. Aortic Valve Normal aortic valve structure and function. There is no aortic valve stenosis. There is no aortic valve regurgitation. Mitral Valve Normal mitral valve structure and function. There is trace mitral valve regurgitation. There is no mitral valve stenosis. Pulmonic Valve The pulmonic valve was not well visualized. Tricuspid Valve Likely normal tricuspid valve structure and function. There is trace tricuspid valve regurgitation. The right ventricular systolic pressure is normal. The right ventricular systolic pressure is 26 mmHg. Normal right atrial pressure. There is no evidence of pulmonary hypertension. Great Vessels All visible segments of the aorta are normal in size. The pulmonary artery was not well visualized. Venous The inferior vena cava is normal in size and collapses greater than 50% with inspiration. Pericardium/Pleural There is no evidence of pericardial effusion. Prior Study Comparison no previous study in the last 5 years for comparison Measurements 2D Linear Measurements IVSd: 1.03 0.6-0.9/0.6-1.0 cm LVIDd: 4.42 3.9-5.3/4.2-5.9 cm LVIDd Index: 2.33 2.4-3.2/2.2-3.1 cm/m2 LVIDs: 3.09 2.0-3.6 cm LVPWd: 0.95 0.7-1.1 cm LA Diam: 3.20 2.7-3.8/3.0-4.0 cm LAIDs Index: 1.68 1.5-2.3 cm/m2 LV Mass: 183.34 67-162/88-224 g LV Mass Index: 96.49 43-95/49-115 g/m2 LVOT Diam: 2.10 3.0+(-)1.3 cm 2D Systolic Function EF 4C: 54.20 >55% EF 2C: 50.90 >55% EF BiP: 51.80 >55% Mitral Valve MV Pk E: 0.91 MV PK A: 0.79 MV Decel Time: 232.00 E/A: 1.20 E'Lateral: 9.03 E'Medial: 6.53 E/E' Med: 14.00 E/E' Lat: 10.10 PHT: 68.00 MVA PHT: 3.24 Decel Dunn: 3.93 Aortic Valve AoV Pk Andres: 1.66 AoV Mn Andres: 1.12 AoV VTI: 0.32 AoV Pk Grad: 11.00 Aov Mn Grad: 6.00 DAISHA Cont.VTI: 2.59 LVOT LVOT Pk Andres: 1.32 LVOT Mn Andres: 0.89 LVOT VTI: 0.24 LVOT Pk Grad: 7.00 LVOT Mn Grad: 4.00 LVOT Diam: 2.10 LVOT Area: 3.46 Diastolic Function MV Pk E: 0.91 MV Pk A: 0.79 E/A: 1.20 E'Medial: 6.53 E/E' Med: 14.00 E' Laterial: 9.03 E/E' Lat: 10.10 Right Ventricle TAPSE (mm): 21.70 TVS' Andres: 15.00 Tricuspid Valve TR Pk Andres: 2.39 TR Pk Grad: 23.00 RA Press: 3.00 RVSP: 26.00 Great Vessels Aorta Sinus of Valsalva: 3.24 2.0-3.[address] Ridge: 2.86 1.7-3.4 cm Ao Asc: 3.00 2.1-3.4 cm Ao Arch: 2.80 Updated in Other Vendor System with Status of Final Fortunato Huizar MD electronically signed on 07/08/2021 12:28:59 PM with status of Final
[2021-07-08] MEDS: Famotidine/PF 20 MG/2 ML VIAL IVPUSH ×2 (09:24→20:06)
[2021-07-08] MEDS: Ferrous Sulfate 300 MG/5 ML LIQUID PO (09:24)
[2021-07-08] MEDS: Thiamine HCL 100 MG TABLET PO (09:24)
[2021-07-08] MEDS: Multivitamin TABLET 1 TAB PO (09:24)
[2021-07-08] MEDS: Magnesium Oxide 400 MG TABLET PO ×2 (09:24→18:34)
[2021-07-08] MEDS: Folic Acid 1 MG TABLET PO (09:24)
[2021-07-08] MEDS: Magnesium Sulfate/H2O 2 GM/50 ML PIGGYBACK IV (09:25)
[2021-07-08] MEDS: Lidocaine 4 % Patch ADH..PATCH 1 PATCH TRANSDERMA (09:26)
--- NOTE | 2021-07-08 09:57 | P.PNIM_ITS ---
Subjective Subjective Date of Service: 07/08/21 Interval History: This history was taken in Persian from the patient. C/o chest wall pain + generalized body aches Eager to get to inpt psych. Unsure about MAT for opioid abuse. Review of Systems Review of Systems: Yes all other systems are reviewed and are negative Physical Exam Vital Signs: Vital Signs: Last Vital Signs Temp 97.6 F 07/08/21 07:40 Pulse 78 07/08/21 07:40 Resp 17 07/08/21 07:40 BP 160/67 H 07/08/21 07:40 Pulse Ox 99 07/08/21 07:40 BMI result Body Mass Index 32.1 Gen: in no acute distress HEENT: sclera anicteric, moist mucus membranes Neck: supple Lungs: clear to auscultation bilaterally Heart: regular rate and rhythm, no murmurs, chest wall tender to palpation along both sternal borders Abd: soft, non-tender, non-distended Ext: no edema Skin: warm/well-perfused Neuro: alert and oriented x3, no focal findings Psych: appropriate affect Objective Data Active Medications Enoxaparin Sodium (Enoxaparin Sodium 40 Mg/0.4 Ml Syringe) 40 mg SUBCUT Q24H [facility] Last Admin: 07/07/21 14:03 Dose: 40 mg Documented by: YING Famotidine (Famotidine/Pf 20 Mg/2 Ml Vial) 20 mg IVPUSH BID [facility] Last Admin: 07/08/21 09:24 Dose: 20 mg Documented by: PAIGE Ferrous Sulfate (Ferrous Sulfate 300 Mg/5 Ml Liquid) 300 mg PO DAILY [facility] Last Admin: 07/08/21 09:24 Dose: 300 mg Documented by: PAIGE Folic Acid (Folic Acid 1 Mg Tablet) 1 mg PO DAILY [facility] Stop: 07/09/21 08:59 Last Admin: 07/08/21 09:24 Dose: 1 mg Documented by: PAIGE Hydromorphone HCl (Hydromorphone Hcl 1 Mg/Ml Syringe) 0.5 mg IVPUSH Q4H PRN; Protocol PRN Reason: Pain, Severe (Pain Scale 7-10) Last Admin: 07/07/21 22:02 Dose: 0.5 mg Documented by: KIRILL Sodium Chloride (Ns) 1,000 mls @ 125 mls/hr IVCONT .Q8H [facility] Last Admin: 07/08/21 05:42 Dose: 125 mls/hr Documented by: KIRILL Lidocaine (Lidocaine 4 % Patch Adh..Patch) 1 patch TRANSDERMA DAILY [facility]; Protocol Last Admin: 07/08/21 09:26 Dose: 1 patch Documented by: PAIGE Magnesium Oxide (Magnesium Oxide 400 Mg Tablet) 400 mg PO BIDPC [facility] Last Admin: 07/08/21 09:24 Dose: 400 mg Documented by: PAIGE Melatonin (Melatonin 3 Mg Tablet) 6 mg PO BEDTIME PRN PRN Reason: Insomnia Last Admin: 07/06/21 21:46 Dose: 6 mg Documented by: MICHAELA Multivitamins/Vitamin C (Multivitamin Tablet) 1 tab PO DAILY [facility] Stop: 07/09/21 08:59 Last Admin: 07/08/21 09:24 Dose: 1 tab Documented by: PAIGE Ondansetron HCl (Ondansetron Hcl 4 Mg/2 Ml Vial) 4 mg IVPUSH Q4H PRN PRN Reason: nauseea/vomiting Last Admin: 07/08/21 06:34 Dose: 4 mg Documented by: KIRILL Pharmacy Consult (Consult Rx Perform Med Rec) 1 each MISCELLANE ONCE PRN PRN Reason: Consult order Senna (Sennosides 8.6 Mg Tablet) 17.2 mg PO BEDTIME PRN PRN Reason: Constipation Sodium Chloride (0.9 % Sodium Chloride Flush 3 Ml Syringe) 3 ml IVFLUSH QSHIFT [facility] Last Admin: 07/08/21 09:25 Dose: Not Given Documented by: PAIGE Non-Admin Reason: IV Running Thiamine HCl (Thiamine Hcl 100 Mg Tablet) 100 mg PO DAILY [facility] Stop: 07/09/21 08:59 Last Admin: 07/08/21 09:24 Dose: 100 mg Documented by: PAIGE Zolpidem Tartrate (Zolpidem Tartrate 5 Mg Tablet) 10 mg PO BEDTIME PRN PRN Reason: Insomnia Last Admin: 07/07/21 22:06 Dose: 10 mg Documented by: KIRILL Labs CBC & Chem 7: 07/06/21 06:15 07/08/21 05:21 Labs: Laboratory Results - last 24 hr 07/07/21 07/08/21 05:12 05:21 Anion Gap 14 Estim Creat Clear Calc 125.9 Estimated GFR > 60 Random Glucose 91 Calcium 7.7 L Magnesium 1.4 L* Total Bilirubin 0.5 AST 146 H ALT 597 H Alkaline Phosphatase 59 Total Creatine Kinase 159 D Total Protein 5.4 L Albumin 2.8 L HIV 1&2 Ab/P24 Ag 4thGn Nonreactive Microbiology Microbiology Results: Microbiology 07/05/21 22:43 Blood Culture - Preliminary Blood - Venous No growth after 48 hours. 07/05/21 22:43 Blood Culture - Preliminary Blood - Venous No growth after 48 hours. 07/06/21 12:12 Urine Culture - Final Urine clean catch - Clean Catch Midstream Assessment and Plan (1) Rhabdomyolysis: Status: Acute (2) NAOMI (acute kidney injury): Status: Acute Plan hospital d#4 51yo M with schizoaffective disorder and polysubstance abuse presenting with SI and generalized body aches and found to have NAOMI, rhabdomyolysis, and transaminasemia # rhabdomyolysis - resolved, d/c IV fluids # NAOMI - resolved after fluid hydration; likely cocaine-induced vasoconstriction # transaminasemia - viral hepatitis workup pending; monitor LFTs, which continue to improve. some component could be due to rhabdomyolysis. GI consulted. # cardiomegaly - TTE pending. hs Tn-I indeterminate/flat, likely due to cocaine/NAOMI # atypical chest pain - likely MSK; lidocaine patch # achalasia, s/p Heller myotomy + multiple balloon dilations - outpt GI f/u. SALES AND SERVICE TECHNICIAN evaluation. # hypoK - repleted # hypoMg - replete IV + PO, recheck in AM # UTI, not - d/c ceftriaxone # opioid abuse # cocaine abuse - Addiction Medicine consult pending. Pt denied opioid or cocaine abuse to CARE Team - hepatitis B/C screen pending. HIV negative. # ETOH abuse - CIWA, prn lorazepam # SI # schizoaffective - 1:1, psychiatric evaluation when medically cleared # VTE ppx - LMWH In my clinical judgment, the patient requires continued hospitalization for the following reasons: IV electrolytes, lab monitoring, SI Quality Stroke Does the patient have a stroke diagnosis?: No VTE Prior VTE?: No VTE Risk Level:: Medical - moderate - high VTE Device Contraindication: Treatment Not Indicated VTE Drug Contraindication: N/A - Med Ordered
--- NOTE | 2021-07-08 10:03 | MHC.CLN ---
NUTRITION REVIEW OF WEIGHT HX SHOWS VARIABLE WEIGHTS X 1 YEAR. OVERALL NO SIGNIFICANT CHANGE COMPARING 07/05/21=87.543 KG AND 07/25/20=86.183 KG.
--- NOTE | 2021-07-08 11:56 | MHC.SL.SWA ---
Speech Pathologist Impression: WFL Risk of Aspiration Due to: None Dysphasia Diet Status: NO CHANGE Liquid Consistency and Strategies for Safe Swallow: Liquid Intake Recommendation: Thin Liquid Intake Strategies: Unrestricted Solid Food Consistency: Dietary Recommendations: Regular Additional Modifications to Solid Foods: Unremarkable bedside swallow eval. No overt s/s of aspiration with PO trials. Recommend continue REGULAR solids and THIN liquids, pills WHOLE with LIQUID. MD, RD, RN notified. Further ST intervention no longer warranted. Please re-refer if there are any changes or if MATTRESS INSPECTOR can be of further assistance. Oral Medication Intake: Whole with Liquid Please contact the pharmacy regarding appropriate crushable or liquid drug formulations that are available whenever modified delivery is recommended. Compensatory Strategies and Precautions to be Taken for Safe Swallow: Sitting Upright (90 deg) Small Bites and Sips Rate of Ingestion Change Supervision While Eating and Drinking for Safe Swallow: None Needed Recommendation for Speech: NA:Typical Evaluation Twister In Clinican/Clinical Fellow: No Supervisory Statement: I have reviewed and agree with the student/clinical fellow's documentation: N/A Speech Language Pathologist: Flora Yung M.A., CCC-MATTRESS INSPECTOR
[2021-07-08] MEDS: HYDROmorphone HCl 1 MG/ML SYRINGE 0.5 MG IVPUSH ×2 (14:46→19:14)
[2021-07-08] MEDS: Enoxaparin Sodium 40 MG/0.4 ML SYRINGE SUBCUT (14:46)
[2021-07-08] MEDS: 0.9 % Sodium Chloride Flush 3 ML SYRINGE IVFLUSH (15:36)
[2021-07-08] MEDS: LORazepam 2 MG/ML VIAL 1 MG IVPUSH ×2 (15:43→20:11)
[2021-07-09] VITALS: BP 121/71; PULSE 102; PULSE 79; RESP 18; TEMP 36.8; O2SAT 97
[2021-07-09] MEDS: HYDROmorphone HCl 1 MG/ML SYRINGE 0.5 MG IVPUSH ×3 (00:18→14:33)
[2021-07-09] MEDS: LORazepam 2 MG/ML VIAL 1 MG IVPUSH ×3 (00:19→14:34)
[2021-07-09] MEDS: 0.9 % Sodium Chloride Flush 3 ML SYRINGE IVFLUSH ×3 (00:23→14:35)
[2021-07-09 06:38] LABS: B Type Natriuretic Peptide 33 pg/mL (<100)
[2021-07-09 06:43] LABS: Alanine Aminotransferase 463 U/L (0-40); Albumin Level 3.1 g/dL (3.5-5.0); Alkaline Phosphatase 66 U/L (39-117); Anion Gap 12 (12-20); Aspartate Amino Transferase 84 U/L (5-37); Bilirubin Direct 0.2 mg/dL (0.0-0.5); Bilirubin Total 0.4 mg/dL (0.0-1.0); Blood Urea Nitrogen 4 mg/dL (9-16); Calcium 8.6 mg/dL (8.4-10.2); Carbon Dioxide 29 mmol/L (22-29); Chloride 100 mmol/L (96-108); Creatinine Clr Calc Pharmacy 115.8; Estimated Glomerular Filt Rate > 60; Glucose Random 89 mg/dL (60-115); Magnesium 1.7 mg/dL (1.6-2.6); Potassium 3.3 mmol/L (3.3-5.1); Sodium 138 mmol/L (135-145); Total Protein 5.9 g/dL (6.5-8.0)
[2021-07-09] MEDS: Magnesium Oxide 400 MG TABLET PO ×2 (07:56→17:23)
[2021-07-09] MEDS: Famotidine/PF 20 MG/2 ML VIAL IVPUSH (07:56)
[2021-07-09] MEDS: Ferrous Sulfate 300 MG/5 ML LIQUID PO (07:57)
[2021-07-09 08:00] VITALS: BP 141/79; PULSE 106; RESP 18; TEMP 37.1; O2SAT 97
--- NOTE | 2021-07-09 09:43 | MHC.CARE ---
Smart sheet submitted
[2021-07-09 10:59] VITALS: BP 130/70; PULSE 94; RESP 18; TEMP 36.9; O2SAT 94
--- NOTE | 2021-07-09 11:38 | P.DS_ITS ---
DS: Providers Provider Date of Service: 07/09/21 Date of admission: 07/05/21 21:20 Date of discharge: 07/09/21 Primary care physician: Gretchen Turcios MD Consults: 07/05/21 06:59 Consult to Crisis Stat Reason for consultation: depression and suicidal ideation Has provider been notified: No 07/05/21 21:18 Consult to Gastroenterology Routine Consulting Provider: Rosendo Mcnamara Reason for consultation: Transaminitis, esophageal thickening, question EGD Consult to Psychiatry Routine Consulting Provider: Psych Covering Reason for consultation: Suicidal ideation 07/05/21 21:28 Addiction Medicine Routine Consulting Provider: Meghan Stewart Reason for consultation: Opiate abuse 07/09/21 07:34 Consult to Care Team Stat Comment: Reason for consultation: Schizoaffective, Medically cleared; see Psych consult; IPLOC Consult to Crisis Stat Reason for consultation: Schizoaffective, Medically cleared; see Psych consult; IPLOC DS: Diagnosis Discharge Diagnosis (1) Rhabdomyolysis: Status: Acute (2) NAOMI (acute kidney injury): Status: Acute (3) Hypomagnesemia: Status: Acute (4) Transaminasemia: Status: Acute (5) Schizoaffective disorder: Status: Acute (6) Depression with suicidal ideation: Status: Acute (7) Hypokalemia: Status: Acute DS: Summary Hospital Course Hospital Course: from admission H+P by Patito Lopez, 07/05/21: 51-year-old with a past medical history of anxiety, alcohol abuse, GERD, dysphagia, major depressive disorder, opiate abuse, history of suicidal ideations; presented to the hospital today with a chief complaint of auditory hallucinations.? Patient also expressed ideas of suicidal ideation.? Denies any plan.? Patient also complains of nausea, generalized body aches; reports he has been generally weak.? Denies any fever chills.? Denies any cough or sputum production.? Denies any chest pain or palpitations.? Review of all other systems is negative except mentioned above ER course: Per ER team patient complained of auditory hallucinations and suicidal ideations; section 12 was felt in; on labs noted to have CPK elevated to 4757, AST 05/26/2043, ALT 1773, T bili 0.5; abdominal exam was benign; recent CT abdomen showed esophageal thickening; labs also noted to have elevated creatinine.? Patient was given IV fluids.? U tox positive for opiates, fentanyl, cocaine.? Admitted to the hospital for further management. This 51 year-old man with schizoaffective disorder and polysubstance abuse presenting with suicidal ideation and generalized body aches was found to have NAOMI, rhabdomyolysis, and transaminasemia and thus admitted to the Medicine service with 1:1 for safety. Rhabdomyolysis and NAOMI resolved after IV fluid hydration and were likely due to cocaine-induced vasoconstriction and pigment nephropathy. Viral hepatitis serologic was negative; some component of the transaminasemia could be due to rhabdomyolysis. Abdominal US was normal. Hepatitis C viral load [RNA] to assess for acute hepatitis C was sent and is pending at the time of transfer. As for possible cardiomegaly on CXR and atypical chest pain, TTE did not demonstrate cardiomyopathy. Troponins were indeterminate/flat and the chest pain was attributed to musculoskeletal factors plus opioid withdrawal and cocaine use. As for dysphagia, he is known to have achlasia and is status-post Heller myotomy and multiple balloon dilations. He passed an LEAD EMBEDDED SOFTWARE ENGINEER evaluation and can follow-up with Dr Rudy Watson, his senior managing director, as an outpatient. Hypokalemia and hypomagnesemia resolved with IV repletion and he was started on maintenance PO magnesium. He was transferred to inpatient psychiatry for management of psychosis and substance abuse. # rhabdomyolysis Time Spent with Patient Time attestation: Total time spent providing and/or coordinating discharge services: Discharge coordination time: Greater than 30 minutes Quality: Safe Use of Opioids Does Pt have an Active Cancer Diagnosis on the Problem List?: No Quality: Stroke Does the patient have a stroke diagnosis?: No Physical Exam Vital Signs: Vital Signs: Last Vital Signs Temp 98.4 F 07/09/21 10:59 Pulse 94 07/09/21 10:59 Resp 18 07/09/21 10:59 BP 130/70 07/09/21 10:59 Pulse Ox 94 07/09/21 10:59 BMI result Body Mass Index 32.1 Gen: in no acute distress HEENT: sclera anicteric, moist mucus membranes Neck: supple Lungs: clear to auscultation bilaterally Heart: regular rate and rhythm, no murmurs, chest wall tender to palpation along both sternal borders Abd: soft, non-tender, non-distended Ext: no edema Skin: warm/well-perfused Neuro: alert and oriented x3, no focal findings Psych: restricted affect DS: Data Data Completed and Pending Completed studies during hospitalization [Text1]: Laboratory Results WBC 7.2 X10*3/uL (4.8-10.8) 07/06/21 06:15 RBC 3.93 X10*6/uL (4.60-5.80) L 07/06/21 06:15 Hgb 11.9 g/dl (14.0-18.0) L 07/06/21 06:15 Hct 34.2 % (42.0-52.0) L 07/06/21 06:15 MCV 87.0 fL (80.0-98.0) 07/06/21 06:15 MCH 30.3 pg (27.0-33.0) 07/06/21 06:15 MCHC 34.8 g/dl (31.0-36.0) 07/06/21 06:15 RDW 14.5 % (11.0-16.0) 07/06/21 06:15 Plt Count 216 X10*3/uL (160-400) 07/06/21 06:15 MPV 9.5 fL (9.4-12.4) 07/06/21 06:15 Immature Gran % (Auto) 0.7 % (0.0-0.4) H 07/06/21 06:15 Neut % (Auto) 79.4 % (45-73) H 07/06/21 06:15 Lymph % (Auto) 14.0 % (20-40) L 07/06/21 06:15 [place] % (Auto) 4.7 % (2-11) 07/06/21 06:15 Eos % (Auto) 1.1 % (0-4) 07/06/21 06:15 Baso % (Auto) 0.1 % (0-2) 07/06/21 06:15 Lymph # (Auto) 1.0 X10*3/uL (1.2-4.9) L 07/06/21 06:15 [place] # (Auto) 0.3 X10*3/uL (0.1-1.2) 07/06/21 06:15 Eos # (Auto) 0.1 X10*3/uL (0.0-0.4) 07/06/21 06:15 Baso # (Auto) 0.0 X10*3/uL (0.0-0.2) 07/06/21 06:15 Abs Immat Gran (auto) 0.05 X10*3/uL (0.00-0.03) H 07/06/21 06:15 Absolute Neuts (auto) 5.8 x10*3/uL (2.0-8.3) 07/06/21 06:15 Absolute Nucleated RBC 0.000 X10*3/uL (0.0-0.012) 07/06/21 06:15 Nucleated RBC % (auto) 0.0 /100WBC (0.0-0.2) 07/06/21 06:15 PT 15.0 SEC (9.9-13.0) H 07/07/21 05:12 INR 1.3 (0.9-1.1) H 07/07/21 05:12 Sodium 138 mmol/L (135-145) 07/09/21 05:45 Potassium 3.3 mmol/L (3.3-5.1) 07/09/21 05:45 Chloride 100 mmol/L (96-108) 07/09/21 05:45 Carbon Dioxide 29 mmol/L (22-29) 07/09/21 05:45 Anion Gap 12 (12-20) 07/09/21 05:45 BUN 4 mg/dL (9-16) L D 07/09/21 05:45 Creatinine 0.75 mg/dL (0.5-1.4) 07/09/21 05:45 Estim Creat Clear Calc 115.8 07/09/21 05:45 Estimated GFR > 60 07/09/21 05:45 Random Glucose 89 mg/dL (60-115) 07/09/21 05:45 Calcium 8.6 mg/dL (8.4-10.2) D 07/09/21 05:45 Magnesium 1.7 mg/dL (1.6-2.6) 07/09/21 05:45 Total Bilirubin 0.4 mg/dL (0.0-1.0) 07/09/21 05:45 Direct Bilirubin 0.2 mg/dL (0.0-0.5) 07/09/21 05:45 AST 84 U/L (5-37) H 07/09/21 05:45 ALT 463 U/L (0-40) H 07/09/21 05:45 Alkaline Phosphatase 66 U/L (39-117) 07/09/21 05:45 Total Creatine Kinase 103 U/L (38-174) D 07/09/21 05:45 Troponin I High Sens 17.9 ng/L (<3.5-35.0) 07/05/21 22:43 B-Natriuretic Peptide 33 pg/mL (<100) 07/09/21 05:45 Total Protein 5.9 g/dL (6.5-8.0) L 07/09/21 05:45 Albumin 3.1 g/dL (3.5-5.0) L 07/09/21 05:45 Urine Color YELLOW 07/05/21 10:46 Urine Appearance CLEAR 07/05/21 10:46 Urine pH 6.0 (5.0-8.0) 07/05/21 10:46 Ur Specific [place] <= 1.005 (1.005-1.025) 07/05/21 10:46 Urine Protein NEG MG/DL (NEG-TRACE) 07/05/21 10:46 Urine Glucose (UA) NEG MG/DL (NEG) 07/05/21 10:46 Urine Ketones 5 MG/DL (NEG) 07/05/21 10:46 Urine Blood 3+ (NEG) H 07/05/21 10:46 Urine Nitrite NEG (NEG) 07/05/21 10:46 Ur Leukocyte Esterase 2+ (NEG) H 07/05/21 10:46 Urine RBC 1-4 /HPF (0) 07/05/21 10:46 Urine WBC 10-14 /HPF (0-4) H 07/05/21 10:46 Ur Squamous Epith Cells TRACE /LPF 07/05/21 10:46 Urine Bacteria TRACE /LPF 07/05/21 10:46 Salicylates < 5.0 mg/dL (15-30) L 07/05/21 09:00 Urine Opiates Screen POSITIVE (Not Detect) H 07/05/21 10:46 Urine Fentanyl Screen POSITIVE (Not Detect) H 07/05/21 10:46 Acetaminophen < 1 mcg/mL (<30) 07/05/21 09:00 Ur Barbiturates Screen Not Detected (Not Detect) 07/05/21 10:46 Ur Phencyclidine Scrn Not Detected (Not Detect) 07/05/21 10:46 Ur Amphetamines Screen Not Detected (Not Detect) 07/05/21 10:46 U Benzodiazepines Scrn Not Detected (Not Detect) 07/05/21 10:46 Urine Cocaine Screen POSITIVE (Not Detect) H 07/05/21 10:46 U Marijuana (THC) Screen Not Detected (Not Detect) 07/05/21 10:46 Ethyl Alcohol < 10 mg/dL 07/05/21 09:00 COVID-19 (ERIN) Negative (Negative) 07/05/21 06:42 COVID-19 Clin Com See Note 07/05/21 06:42 Hep Bs Antigen Negative (Negative) 07/05/21 22:43 Hep Bs Antibody NONREACTIVE (Nonreactive) 07/05/21 22:43 Hep B Core Total Ab Nonreactive (Nonreactive) 07/05/21 22:43 Hepatitis C Ab (EIA) Nonreactive (Nonreactive) 07/05/21 22:43 HIV 1&2 Ab/P24 Ag 4thGn Nonreactive (Nonreactive) 07/07/21 05:12 Impressions Chest X-Ray 07/05/21 19:04 IMPRESSION: Elevated right hemidiaphragm. Interval mild cardiac enlargement. No acute intrathoracic disease. When the patient is stable recommend a PA and lateral chest radiograph for further evaluation Abdomen Ultrasound 07/05/21 23:45 IMPRESSION: Normal ultrasound right upper quadrant abdomen. TTE 07/08/21 1.? Low normal LV systolic function with LVEF of 50-55%? 2. Normal cardiac valvular Doppler ? 3.? Normal RV systolic pressure? 4. No gross pericardial effusion ? Pending studies at discharge: 07/09/21: hepatitis C RNA [viral load] Discharge Plan Discharge Patient Disposition: Xfer Psychiatric Hosp Discharge Diagnosis: acute kidney injury, rhabdomyolysis, transaminasemia, hypomagnesemia, polysubstance abuse, schizoaffective disorder with suicidal ideation Referrals: Gretchen Turcios MD [Primary Care Provider] - 1 Week Discharge Medications: New lidocaine [Lidocaine Pain Relief] 4 % Adhesive Patch,Medicated 1 patch transdermal DAILY Qty: 30 0RF Protocol: Apply to: Apply to: chest wall magnesium oxide 400 mg (241.3 mg magnesium) Tablet 400 mg PO BIDPC Qty: 60 0RF Continued ferrous sulfate 300 mg (60 mg iron)/5 mL liquid 5 ml PO DAILY 0RF zolpidem 10 mg tablet 1 tab PO BEDTIME PRN (Reason: Insomnia) 0RF ondansetron 4 mg tablet,disintegrating 1 tab PO Q8H PRN (Reason: nausea/vomiting) 0RF Discharge Orders: Discharge Order (Routine); Ordered 07/09/21 Ordered By: Sarah Kramer Diet: advance to usual diet Activity on Discharge: no drugs Stand Alone Forms: Patient Portal Discharge page Care Plan Goals: mental health sobriety Health Concerns: acute kidney injury, rhabdomyolysis, transaminasemia, hypomagnesemia, polysubstance abuse, schizoaffective disorder with suicidal ideation Plan of Treatment: inpatient psychiatry take magnesium oxide 400 mg twice daily avoid substances of abuse Assessment: see Discharge Summary Patient Instructions: Cocaine Abuse (DC), Schizoaffective Disorder (DC), Suicide Prevention (DC), Narcotic Use Disorder (DC)
--- NOTE | 2021-07-09 12:26 | MHC.CM.PN ---
Addendum entered by Tess Betts 07/09/21 13:52: RECEIVED CALL FROM CARE TEAM [facility] HAS NO BED AVAILABILITY TODAY MAYBE TOMORROW AND THYE WILL START A INPATIENT PSYCH BED SEARCH NOW SO PAIENT WILL REMAIN IN THE HOSPITAL UNTIL THEN Original Note: nurse case repairer note electronic medical record reviewed along with ccase discussed with hospitalist patient has been medically cleared for discharge and will be going ti o inpatient psych once bed is available m([facility]- inpatient psych on 3rd or 5th floor
--- NOTE | 2021-07-09 14:06 | P.PNIM_ITS ---
Subjective Subjective Date of Service: 07/09/21 Interval History: This history was taken in Indonesian from the patient. awaiting inpt psychiatry bed endorses SI Review of Systems Review of Systems: Yes all other systems are reviewed and are negative Physical Exam Vital Signs: Vital Signs: Last Vital Signs Temp 98.4 F 07/09/21 10:59 Pulse 94 07/09/21 10:59 Resp 18 07/09/21 10:59 BP 130/70 07/09/21 10:59 Pulse Ox 94 07/09/21 10:59 BMI result Body Mass Index 32.1 Gen: in no acute distress HEENT: sclera anicteric, moist mucus membranes Neck: supple Lungs: clear to auscultation bilaterally Heart: regular rate and rhythm, no murmurs Abd: soft, non-tender, non-distended Ext: no edema Skin: warm/well-perfused Neuro: alert and oriented x3, no focal findings Psych: restricted affect Objective Data Active Medications Enoxaparin Sodium (Enoxaparin Sodium 40 Mg/0.4 Ml Syringe) 40 mg SUBCUT Q24H [facility] Last Admin: 07/08/21 14:46 Dose: 40 mg Documented by: PAIGE Famotidine (Famotidine/Pf 20 Mg/2 Ml Vial) 20 mg IVPUSH BID [facility] Last Admin: 07/09/21 07:56 Dose: 20 mg Documented by: PAIGE Ferrous Sulfate (Ferrous Sulfate 300 Mg/5 Ml Liquid) 300 mg PO DAILY [facility] Last Admin: 07/09/21 07:57 Dose: 300 mg Documented by: PAIGE Hydromorphone HCl (Hydromorphone Hcl 1 Mg/Ml Syringe) 0.5 mg IVPUSH Q4H PRN; Protocol PRN Reason: Pain, Severe (Pain Scale 7-10) Last Admin: 07/09/21 08:14 Dose: 0.5 mg Documented by: PAIGE Lidocaine (Lidocaine 4 % Patch Adh..Patch) 1 patch TRANSDERMA DAILY [facility]; Protocol Last Admin: 07/09/21 07:57 Dose: Not Given Documented by: PAIGE Non-Admin Reason: Patient Refused Lorazepam (Lorazepam 2 Mg/Ml Vial) 1 mg IVPUSH Q4H PRN PRN Reason: anxiety/agiatiaotn Last Admin: 07/09/21 08:14 Dose: 1 mg Documented by: PAIGE Magnesium Oxide (Magnesium Oxide 400 Mg Tablet) 400 mg PO BIDPC [facility] Last Admin: 07/09/21 07:56 Dose: 400 mg Documented by: PAIGE Melatonin (Melatonin 3 Mg Tablet) 6 mg PO BEDTIME PRN PRN Reason: Insomnia Last Admin: 07/06/21 21:46 Dose: 6 mg Documented by: MICHAELA Ondansetron HCl (Ondansetron Hcl 4 Mg/2 Ml Vial) 4 mg IVPUSH Q4H PRN PRN Reason: nauseea/vomiting Last Admin: 07/08/21 14:46 Dose: 4 mg Documented by: PAIGE Pharmacy Consult (Consult Rx Perform Med Rec) 1 each MISCELLANE ONCE PRN PRN Reason: Consult order Senna (Sennosides 8.6 Mg Tablet) 17.2 mg PO BEDTIME PRN PRN Reason: Constipation Sodium Chloride (0.9 % Sodium Chloride Flush 3 Ml Syringe) [facility] Last Admin: 07/09/21 07:57 Dose: 3 ml Documented by: PAIGE Zolpidem Tartrate (Zolpidem Tartrate 5 Mg Tablet) 10 mg PO BEDTIME PRN PRN Reason: Insomnia Last Admin: 07/07/21 22:06 Dose: 10 mg Documented by: KIRILL Labs CBC & Chem 7: 07/06/21 06:15 07/09/21 05:45 Labs: Laboratory Results - last 24 hr 07/09/21 07/09/21 05:45 05:45 Anion Gap 12 Estim Creat Clear Calc 115.8 Estimated GFR > 60 Random Glucose 89 Calcium 8.6 D Magnesium 1.7 Total Bilirubin 0.4 Direct Bilirubin 0.2 AST 84 H ALT 463 H Alkaline Phosphatase 66 Total Creatine Kinase 103 D B-Natriuretic Peptide 33 Total Protein 5.9 L Albumin 3.1 L Assessment and Plan (1) Rhabdomyolysis: Status: Acute (2) NAOMI (acute kidney injury): Status: Acute Plan hospital d#5 51yo M with schizoaffective disorder and polysubstance abuse presenting with SI and generalized body aches and found to have NAOMI, rhabdomyolysis, and transaminasemia # rhabdomyolysis - resolved s/p IV fluid hydration # NAOMI - resolved after fluid hydration; likely cocaine-induced vasoconstriction + rhabdo # transaminasemia - HBV/HCV serologies negative. check HCV viral load to r/o acute HCV. some crossover due to rhabdomyolysis. LFTs improved. # cardiomegaly, not - TTE essentially normal. hs Tn-I indeterminate/flat, likely due to cocaine/NAOMI. # atypical chest pain - likely MSK; lidocaine patch # achalasia, s/p Heller myotomy + multiple balloon dilations - outpt GI f/u. RESORT HOUSEKEEPER evaluation. # hypoK - repleted # hypoMg - repleted, continue PO maintenance # UTI, not - d/c ceftriaxone # opioid abuse # cocaine abuse - Addiction Medicine consult pending. Pt denied opioid or cocaine abuse to CARE Team - hepatitis B/C and HIV screens negative # ETOH abuse - CIWA, prn lorazepam # SI # schizoaffective - 1:1 - medically cleared for transfer to inpatient psychiatry # VTE ppx - LMWH In my clinical judgment, the patient requires continued hospitalization for the following reasons: transfer to inpatient psychiatry, awaiting bed Quality Stroke Does the patient have a stroke diagnosis?: No VTE Prior VTE?: No VTE Risk Level:: Medical - moderate - high VTE Device Contraindication: Treatment Not Indicated VTE Drug Contraindication: N/A - Med Ordered
[2021-07-09] MEDS: Enoxaparin Sodium 40 MG/0.4 ML SYRINGE SUBCUT (14:34)
[2021-07-09 16:00] VITALS: BP 141/82; PULSE 108; RESP 18; TEMP 37.1; O2SAT 98
[2021-07-09 17:56] LABS: COVID-19 Test Negative (Negative)
[2021-07-10 08:17] LABS: ~Hepatitis C Antibody Nonreactive (Nonreactive)
[2021-07-10 09:04] LABS: Hepatitis A Antibody IgM 0.18 Index (0-0.79); ~Hepatitis A Antibody IgM Nonreactive (Nonreactive)
== END 2021-07-09 18:30 | DRG 816 ==
LOC: HO.ED 18:58 → HO.EDOVER 21:34 → HO.S3 07-06 12:11 → HO.EDOVER 07-06 12:40 → HO.IMC 07-06 16:15 → HO.S3 07-06 23:40
PROVIDERS: Internal Medicine Gastroenterology; Physician Assistant; Registered Nurse; Admitting Provider Hospitalist; Emergency Provider Emergency Medicine; PCP Internal Medicine; Visit Provider Family Medicine
DX: T40.5X1A Poisoning by cocaine, accidental (unintentional), initial encounter (principal); M62.82 Rhabdomyolysis; N17.9 Acute kidney failure, unspecified; R45.851 Suicidal ideations; N14.1 Nephropathy induced by other drugs, medicaments and biological substances; K21.9 Gastro-esophageal reflux disease without esophagitis; F31.9 Bipolar disorder, unspecified; F10.20 Alcohol dependence, uncomplicated; E87.6 Hypokalemia; N39.0 Urinary tract infection, site not specified; E83.42 Hypomagnesemia; R13.10 Dysphagia, unspecified; F14.10 Cocaine abuse, uncomplicated; F11.13 Opioid abuse with withdrawal; F17.210 Nicotine dependence, cigarettes, uncomplicated; Z20.822 Contact with and (suspected) exposure to COVID-19; Z91.041 Radiographic dye allergy status; Z71.6 Tobacco abuse counseling; Z88.5 Allergy status to narcotic agent; Z88.6 Allergy status to analgesic agent; Z79.899 Other long term (current) drug therapy
CPT/HCPCS: 36415; 71045; 76705; 80048; 80053; 80076; 80143; 80179; 80307; 81001; 81003; 82077; 82550; 83735; 83880; 84484; 85025; 85610; 86704; 86706; 86709; 86803; 87040; 87086; 87340; 87389; 87635; 92610; 93005; 93306; 96360; 99285; J0696; J1170; J1650; J2060; J2405; J3475

== ENCOUNTER 2021-07-09 18:46 | Inpatient (IN) | payer OTHER, SELFPAY ==
[2021-07-09] MEDS: LORazepam 1 MG TABLET PO (21:09)
[2021-07-09] MEDS: Melatonin 3 MG TABLET 6 MG PO (21:09)
[2021-07-09] MEDS: hydrOXYzine HCL 25 MG TABLET PO (21:09)
--- NOTE | 2021-07-09 21:12 | HO.PSYADMNOT ---
HPI Date of Service: 07/09/21 Chief Complaint: Si, Depression Sources of Information: patient interviewed, chart reviewed and crisis/core team assessment reviewed HPI Subjective Notes: Diggs Warning and Conditional Voluntary Healthcare Proxy: No Guardianship: No Medical Problems Affecting Mental Status: No Narrative: Jerson is a 51 y.o. Male who carries a dx of schizoaffective DO, depressive type and opioid use disorder, mild alcohol use disorder. He presented to [facility] on 07/05/21 due to complaining of command AH telling him to cut his throat and panic attacks. Pt has been non-adherent with medications and has hx of multiple inpatient psych admissions, last at [facility] M5 in 11/2020. While in the ED, patient noted to have rhabdomyolysis, transaminitis, and NAOMI. He was admitted to [facility] for further management. Utox was positive for opiates, fentanyl, and cocaine.? During course of hospitalization, pt?s acute Hep panel was nonreactive/ negative, HIV negative, hep c viral load non-reactive. Pt was placed on COWS and CIWA protocol with Ativan PRN. Rhabdomyolysis and NAOMI resolved after IV fluid hydration and were determined likely due to cocaine-induced vasoconstriction and pigment nephropathy. Transaminasemia could be due to rhabdomyolysis.? Abdominal US was normal. Pt complained of chest pain and per cardiology workup for possible cardiomegaly on CXR and atypical chest pain, TTE did not demonstrate cardiomyopathy.? Troponins were indeterminate/flat and the chest pain was attributed to musculoskeletal factors plus opioid withdrawal and cocaine use. Pt was started on maintenance PO magnesium.? I evaluated the pt this evening and upon interview he reports his mood is ?not too good.? He is found laying down in bed, says his sleep is ?sometimes not good.? Reports he is in the hospital due to depression, anxiety, and hearing voices telling him to hurt himself. Energy is low. Continues to endorse passive SI but denies plan or intent and says he feels safe. Says he is irritable but denies assaultive ideation. Does not want to continue interview and does not want med changes, says he would be willing to discuss this tomorrow. Past Psychiatric History: -Pt psychiatrist is Dr. Bud Da Silva and he has OP services at [facility] -Hx of multiple psych inpatient admissions since 2011. Hx of CCS, ATS. -Past med trials: trazodone (facial swelling), doxepin (leg swelling), quetiapine (facial swelling), clonidine, amitriptyline, prolixin, remeron. Medical Evaluation Reviewed: Yes [facility] Medical History Alcohol dependence Anxiety Chest pain Derangement of symphysis pubis Dysphagia GERD (gastroesophageal reflux disease) Major depressive disorder, recurrent severe without psychotic features Opioid abuse Weight loss Surgical History H/O umbilical hernia repair History of colonoscopy History of cystoscopy Family History: Sister with chronic psychosis Social History: -Pt is homeless, has been staying with friends. He has an adult daughter, who he has some contact with. -Pt has a hx of legal issues for A&B -unemployed, has SSDI Substance History: -Hx of methadone maintenance -Utox positive for cocaine, fentanyl, opiates Meds/Allergies Meds Home Medications Acetaminophen (Acetaminophen 325 Mg Tablet) 650 mg PO Q6H PRN PRN Reason: Headache/Pain Mild Scale (1-3) Al Hydroxide/Mg Hydroxide (Magnesium Hydrox/Alum Hydrox 30 Ml Oral.Susp) 30 ml PO Q6H PRN PRN Reason: Heartburn/Nausea Last Admin: 07/10/21 15:47 Dose: 30 ml Documented by: Aripiprazole (Aripiprazole 5 Mg Tablet) 5 mg PO DAILY [facility] Bacitracin (Bacitracin Oint 14 Gm Tube) 1 appl TOPICAL BID [facility] Last Admin: 07/10/21 20:11 Dose: 1 appl Documented by: Clonazepam (Clonazepam 1 Mg Tablet) 1 mg PO BEDTIME [facility] Last Admin: 07/10/21 20:10 Dose: 1 mg Documented by: Clonazepam (Clonazepam 1 Mg Tablet) 1 mg PO DAILY PRN PRN Reason: anxiety, agitation Clonidine HCl (Clonidine Hcl 0.1 Mg Tablet) 0.1 mg PO BID [facility]; Protocol Last Admin: 07/10/21 20:09 Dose: 0.1 mg Documented by: Famotidine (Famotidine/Pf 20 Mg/2 Ml Vial) 20 mg IVPUSH BID [facility] Last Admin: 07/10/21 20:12 Dose: Not Given Documented by: Famotidine (Famotidine 20 Mg Tablet) 20 mg PO BID [facility] Last Admin: 07/10/21 20:10 Dose: 20 mg Documented by: Ferrous Sulfate (Ferrous Sulfate 300 Mg/5 Ml Liquid) 300 mg PO DAILY [facility] Last Admin: 07/10/21 13:00 Dose: 300 mg Documented by: Folic Acid (Folic Acid 1 Mg Tablet) 1 mg PO DAILY [facility] Last Admin: 07/10/21 09:16 Dose: 1 mg Documented by: Hydroxyzine HCl (Hydroxyzine Hcl 25 Mg Tablet) 25 mg PO Q6H PRN PRN Reason: Anxiety Hydroxyzine HCl (Hydroxyzine Hcl 25 Mg Tablet) 25 mg PO BEDTIME PRN PRN Reason: Anxiety Last Admin: 07/09/21 21:09 Dose: 25 mg Documented by: Lidocaine (Lidocaine 4 % Patch Adh..Patch) 1 patch TRANSDERMA DAILY [facility]; Protocol Last Admin: 07/10/21 10:48 Dose: Not Given Documented by: Magnesium Hydroxide (Milk Of Magnesia 30 Ml Oral.Susp) 30 ml PO DAILY PRN PRN Reason: Constipation Magnesium Oxide ([facility] 400 Mg [facility]t) [facility] Last Admin: 07/10/21 17:51 Dose: 400 mg Documented by: Melatonin (Melatonin 3 Mg Tablet) 6 mg PO BEDTIME PRN PRN Reason: Insomnia Last Admin: 07/09/21 21:09 Dose: 6 mg Documented by: Mirtazapine (Mirtazapine 7.5 Mg Tablet) 7.5 mg PO BEDTIME [facility] Last Admin: 07/10/21 20:10 Dose: 7.5 mg Documented by: Ondansetron HCl (Ondansetron Odt 8 Mg Tab.Rapdis) 8 mg TRANSLINGU Q8H PRN PRN Reason: nausea Senna (Sennosides 8.6 Mg Tablet) 17.2 mg PO BEDTIME PRN PRN Reason: Constipation Thiamine HCl (Thiamine Hcl 100 Mg Tablet) 50 mg PO DAILY [facility] Last Admin: 07/10/21 09:16 Dose: 50 mg Documented by: Trazodone HCl (Trazodone Hcl 50 Mg Tablet) 50 mg PO BEDTIME PRN PRN Reason: Insomnia Zolpidem Tartrate (Zolpidem Tartrate 5 Mg Tablet) 10 mg PO BEDTIME PRN PRN Reason: Insomnia Last Admin: 07/10/21 21:27 Dose: 10 mg Documented by: Allergies Allergies Allergy/AdvReac Type Severity Reaction Status Date / Time trazodone [TRAZODONE] Allergy Severe FACIAL Verified 06/23/21 08:15 SWELLING, swelling cat dander [CATS] Allergy Intermediate FACIAL Verified 06/23/21 08:15 ITCHING doxepin [DOXEPIN] Allergy Intermediate WEIGHT Verified 06/23/21 08:15 GAIN/LEG SWELLING Iodinated Contrast Media Allergy Intermediate ITCHING Verified 06/23/21 08:15 [IV DYE, IODINE CONTAINING CONTRAST ] nitroglycerin [NITROGLYCERIN] Allergy Unknown UNKNOWN Verified 06/23/21 08:15 tramadol [TRAMADOL] Allergy Unknown UNKNOWN, Verified 06/23/21 08:15 dry mouth ibuprofen [From MOTRIN] AdvReac Intermediate GI UPSET Verified 06/23/21 08:15 quetiapine [From SEROQUEL] AdvReac Intermediate FACIAL Verified 06/23/21 08:15 SWELLING aspirin [ASPIRIN] AdvReac Mild Stomach Verified 06/23/21 08:15 Upset Ibuprofen Allergy Unknown stomach Uncoded 01/30/21 10:12 ache IV contrast Allergy Unknown Unknown Uncoded 01/30/21 10:12 Motrin Allergy Unknown stomach Uncoded 01/30/21 10:12 pain Mental Status Exam Mental Status Exam Narrative: A&O. Unkempt appearance, in hospital attire, in bed with covers over him. Poor eye contact, attentive. No Tics or Tremors. No abnormal involuntary movements. Calm, guarded, difficult to engage. Non-pressured speech, spontaneous with regular rate and rhythm, quiet. No prolonged speech latency or dysarthria. Mood is ?depressed,? affect is dysphoric, irritable. Endorses passive SI. Denies SIB/HI upon inquiry. Reports command AH/VH of shadows. Denies delusional thought content, hx of persecutory thought content. Thoughts are perseverative. No known cognitive or memory impairment. Insight/ Judgment poor. Assessment & Plan Assessment & Plan (1) Alcohol use disorder, moderate, in controlled environment: Status: Acute Code(s): F10.20 - Alcohol dependence, uncomplicated (2) Opioid use disorder: Status: Acute Code(s): F11.99 - Opioid use, unspecified with unspecified opioid-induced disorder (3) Schizoaffective disorder, depressive type: Status: Acute Code(s): F25.1 - Schizoaffective disorder, depressive type Plan Jerson is a 51 y.o. Male who carries a dx of schizoaffective DO, depressive type and opioid use disorder, mild alcohol use disorder. He presented to [facility] on 07/05/21 due to complaining of command AH telling him to cut his throat and panic attacks. Pt has been non-adherent with medications and has hx of multiple inpatient psych admissions, last at [facility] M5 in 11/2020. While in the ED, patient noted to have rhabdomyolysis, transaminitis, and NAOMI. He was admitted to [facility] for further management. Utox was positive for opiates, fentanyl, and cocaine. Plan: Per records, pt?s most recent OP med regimen was fluphenazine 5 mg QHS, remeron 15 mg QHS, amitriptyline 125 mg QHS, ambien 10 mg QHS PRN, melatonin 10 mg QHS, cogentin 1 mg BID, clonidine 0.1 mg BID, atenolol 25 mg QAM, vistaril 50 mg QID PRN, and benadryl 50 mg QHS. However, pt has been non-adherent. Will re-start clonidine 0.1 mg BID and defer further med changes for tomorrow with primary psych team.?? Q15 min safety checks, CV Monitor response to medications. Monitor for safety in the milieu. Discharge on stabilization. Patient seen. Chart reviewed. Discussed with team. Obtain collateral contact info?as needed Patient educated on: medication risk/benefits and therapeutic strategies Reason for continued inpatient stay Substantial Risk for: harm to self and med/psych decompensation
[2021-07-09 21:19] VITALS: BP 117/67; PULSE 97; TEMP 37; O2SAT 97
[2021-07-09 22:23] VITALS: BP 121/68; PULSE 94
[2021-07-09] MEDS: cloNIDine HCL 0.1 MG TABLET PO (22:25)
[2021-07-09] MEDS: Zolpidem Tartrate 5 MG TABLET 10 MG PO (22:25)
[2021-07-09] MEDS: Famotidine 20 MG TABLET PO (22:25)
--- NOTE | 2021-07-10 02:28 | PC.ADMIT ---
admission on 07/09/21-patient was a CARE team referral from the medical floor s/p treatment of NAOMI. nurse to nurse, doc to doc report done prior to admission. collateral information obtained prior to admission. CV. dx: schizoaffective d/o, opioid use d/o. patient reports + ah telling him to harm himself but reported ''feeling safe, I know people here'' also reports that ''I don't know why there are drugs in me, I did not do any'' denies any w/d s/s, none observed. patient does have a hx of behavioral health and rehab admissions. presents with poor adl's reporting ''I'll shower in the morning'' reports + anxiety 01/13. ''I always feel anxious'' ''all the time'' isolative to room since admission to the floor with patient identifying ''I'm very tired, I don't sleep good'' oriented to unit. safety tool completed. treatment plan initiated.
[2021-07-10 06:00] VITALS: BP 134/77; PULSE 108; RESP 18; TEMP 36.8; O2SAT 95
[2021-07-10 08:00] VITALS: PULSE 108
[2021-07-10] MEDS: Thiamine HCL 100 MG TABLET 50 MG PO (09:16)
[2021-07-10] MEDS: Folic Acid 1 MG TABLET PO (09:16)
[2021-07-10] MEDS: Famotidine 20 MG TABLET PO ×2 (09:16→20:10)
[2021-07-10] MEDS: Magnesium Oxide 400 MG TABLET PO ×2 (09:16→17:51)
[2021-07-10] MEDS: cloNIDine HCL 0.1 MG TABLET PO ×2 (09:16→20:09)
[2021-07-10] MEDS: Ferrous Sulfate 300 MG/5 ML LIQUID PO (13:00)
[2021-07-10 15:03] VITALS: BP 133/79; PULSE 95; RESP 18; O2SAT 96
--- NOTE | 2021-07-10 15:43 | ECG_ITS ---
Test Reason : CHEST PAIN Blood Pressure : / mmHG Vent. Rate : 085 BPM Atrial Rate : 085 BPM P-R Int : 116 ms QRS Dur : 080 ms QT Int : 370 ms P-R-T Axes : 023 004 -14 degrees QTc Int : 440 ms Normal sinus rhythm Moderate voltage criteria for LVH, may be normal variant ( R in aVL , Sokolow-Pickering ) Nonspecific T wave abnormality Abnormal ECG When compared with ECG of 05-JUL-2021 09:58, Nonspecific T wave abnormality now evident in Lateral leads Referred By: Luis Enrique Vidales Electronically Signed By:MARIE LOCKWOOD MD
[2021-07-10] MEDS: Magnesium Hydrox/Alum Hydrox 30 ML ORAL.SUSP PO (15:47)
[2021-07-10 15:49] VITALS: PULSE 95
--- NOTE | 2021-07-10 15:59 | PC.NURSE ---
Patient c/o #[address] Vidales notified. VSS. No diaphoresis, or radiation. Points to area under R nipple states pain is right there . Reports pain started 6 hours ago. BP 133/79, HR 95 RR18, 96% RA 97.6 Temp. Mylanta administered, patient states that is for babies . EKG ordered.
[2021-07-10] MEDS: clonazePAM 1 MG TABLET PO (20:10)
[2021-07-10] MEDS: Mirtazapine 7.5 MG TABLET PO (20:10)
[2021-07-10] MEDS: Bacitracin Oint 14 GM TUBE 1 APPL TOPICAL (20:11)
[2021-07-10 20:16] VITALS: BP 133/83; PULSE 108; TEMP 36.8; O2SAT 96
[2021-07-10] MEDS: Zolpidem Tartrate 5 MG TABLET 10 MG PO (21:27)
--- NOTE | 2021-07-10 23:06 | HO.PSYCHPN ---
Subjective Subjective Date of Service: 07/10/21 Reason For Visit: Si, Depression Interim History: Patient seen and discussed with team. He remained in bed all day, did not participate in groups. Patient evaluated today and upon interview he reports he slept well last night. Discussed medication for depression and AH, as pt says he does not like prolixin, has been nonadherent, unable to elaborate on why he does not like it. Pt says Zyprexa and risperdal never helped me. Also says Haldol doesnt help me. Reports he still hears voices saying to kill myself. Pt appears internally preoccupied, swearing to himself, perseverative. Energy is low. Mood is depressed. Says he has a lot of problems on the outside, when asked to elaborate he says he doesnt want to talk today, would prefer to talk tomorrow.? In the milieu, patient is isolative in behavior. Says he feels safe. Medication Compliance: Yes Side effects from medications: No Attending Groups: No Review of Systems Acute medical concerns: No Medical Review of Systems: unchanged Mental Status Exam Mental Status Exam Narrative: A&O. Unkempt appearance, in hospital attire, in bed with covers over him. Poor eye contact, attentive. No Tics or Tremors. No abnormal involuntary movements. Calm, guarded, difficult to engage. Non-pressured speech, spontaneous with regular rate and rhythm, quiet. No prolonged speech latency or dysarthria. Mood is ?depressed,? affect is dysphoric, irritable. Endorses passive SI. Denies SIB/HI upon inquiry. Reports command AH/VH of shadows. Denies delusional thought content, hx of persecutory thought content. Thoughts are perseverative. No known cognitive or memory impairment. Insight/ Judgment poor. Diagnostics Vital Signs (24Hr): Vital Signs - 24 hr 07/10/21 15:03 07/10/21 20:16 Temperature 98.3 F Pulse Rate 95 108 H Respiratory Rate 18 Blood Pressure 133/79 133/83 Pulse Oximetry 96 96 Medications Medications Current Medications Acetaminophen (Acetaminophen 325 Mg Tablet) 650 mg PO Q6H PRN PRN Reason: Headache/Pain Mild Scale (1-3) Al Hydroxide/Mg Hydroxide (Magnesium Hydrox/Alum Hydrox 30 Ml Oral.Susp) 30 ml PO Q6H PRN PRN Reason: Heartburn/Nausea Last Admin: 07/10/21 15:47 Dose: 30 ml Documented by: Aripiprazole (Aripiprazole 5 Mg Tablet) 5 mg PO DAILY [facility] Bacitracin (Bacitracin Oint 14 Gm Tube) 1 appl TOPICAL BID [facility] Last Admin: 07/10/21 20:11 Dose: 1 appl Documented by: Clonazepam (Clonazepam 1 Mg Tablet) 1 mg PO BEDTIME [facility] Last Admin: 07/10/21 20:10 Dose: 1 mg Documented by: Clonazepam (Clonazepam 1 Mg Tablet) 1 mg PO DAILY PRN PRN Reason: anxiety, agitation Clonidine HCl (Clonidine Hcl 0.1 Mg Tablet) 0.1 mg PO BID [facility]; Protocol Last Admin: 07/10/21 20:09 Dose: 0.1 mg Documented by: Famotidine (Famotidine/Pf 20 Mg/2 Ml Vial) 20 mg IVPUSH BID [facility] Last Admin: 07/10/21 20:12 Dose: Not Given Documented by: Famotidine (Famotidine 20 Mg Tablet) 20 mg PO BID [facility] Last Admin: 07/10/21 20:10 Dose: 20 mg Documented by: Ferrous Sulfate (Ferrous Sulfate 300 Mg/5 Ml Liquid) 300 mg PO DAILY [facility] Last Admin: 07/10/21 13:00 Dose: 300 mg Documented by: Folic Acid (Folic Acid 1 Mg Tablet) 1 mg PO DAILY [facility] Last Admin: 07/10/21 09:16 Dose: 1 mg Documented by: Hydroxyzine HCl (Hydroxyzine Hcl 25 Mg Tablet) 25 mg PO Q6H PRN PRN Reason: Anxiety Hydroxyzine HCl (Hydroxyzine Hcl 25 Mg Tablet) 25 mg PO BEDTIME PRN PRN Reason: Anxiety Last Admin: 07/09/21 21:09 Dose: 25 mg Documented by: Lidocaine (Lidocaine 4 % Patch Adh..Patch) 1 patch TRANSDERMA DAILY [facility]; Protocol Last Admin: 07/10/21 10:48 Dose: Not Given Documented by: Magnesium Hydroxide (Milk Of Magnesia 30 Ml Oral.Susp) 30 ml PO DAILY PRN PRN Reason: Constipation Magnesium Oxide ([facility]esium [facility] 400 Mg Tablet) [facility] Last Admin: 07/10/21 17:51 Dose: 400 mg Documented by: Melatonin (Melatonin 3 Mg Tablet) 6 mg PO BEDTIME PRN PRN Reason: Insomnia Last Admin: 07/09/21 21:09 Dose: 6 mg Documented by: Mirtazapine (Mirtazapine 7.5 Mg Tablet) 7.5 mg PO BEDTIME [facility] Last Admin: 07/10/21 20:10 Dose: 7.5 mg Documented by: Ondansetron HCl (Ondansetron Odt 8 Mg Tab.Rapdis) 8 mg TRANSLINGU Q8H PRN PRN Reason: nausea Senna (Sennosides 8.6 Mg Tablet) 17.2 mg PO BEDTIME PRN PRN Reason: Constipation Thiamine HCl (Thiamine Hcl 100 Mg Tablet) 50 mg PO DAILY [facility] Last Admin: 07/10/21 09:16 Dose: 50 mg Documented by: Trazodone HCl (Trazodone Hcl 50 Mg Tablet) 50 mg PO BEDTIME PRN PRN Reason: Insomnia Zolpidem Tartrate (Zolpidem Tartrate 5 Mg Tablet) 10 mg PO BEDTIME PRN PRN Reason: Insomnia Last Admin: 07/10/21 21:27 Dose: 10 mg Documented by: Allergies Allergies Allergy/AdvReac Type Severity Reaction Status Date / Time trazodone [TRAZODONE] Allergy Severe FACIAL Verified 06/23/21 08:15 SWELLING, swelling cat dander [CATS] Allergy Intermediate FACIAL Verified 06/23/21 08:15 ITCHING doxepin [DOXEPIN] Allergy Intermediate WEIGHT Verified 06/23/21 08:15 GAIN/LEG SWELLING Iodinated Contrast Media Allergy Intermediate ITCHING Verified 06/23/21 08:15 [IV DYE, IODINE CONTAINING CONTRAST ] nitroglycerin [NITROGLYCERIN] Allergy Unknown UNKNOWN Verified 06/23/21 08:15 tramadol [TRAMADOL] Allergy Unknown UNKNOWN, Verified 06/23/21 08:15 dry mouth ibuprofen [From MOTRIN] AdvReac Intermediate GI UPSET Verified 06/23/21 08:15 quetiapine [From SEROQUEL] AdvReac Intermediate FACIAL Verified 06/23/21 08:15 SWELLING aspirin [ASPIRIN] AdvReac Mild Stomach Verified 06/23/21 08:15 Upset Ibuprofen Allergy Unknown stomach Uncoded 01/30/21 10:12 ache IV contrast Allergy Unknown Unknown Uncoded 01/30/21 10:12 Motrin Allergy Unknown stomach Uncoded 01/30/21 10:12 pain Assessment & Plan Assessment & Plan (1) Alcohol use disorder, moderate, in controlled environment: Status: Acute Code(s): F10.20 - Alcohol dependence, uncomplicated (2) Opioid use disorder: Status: Acute Code(s): F11.99 - Opioid use, unspecified with unspecified opioid-induced disorder (3) Schizoaffective disorder, depressive type: Status: Acute Code(s): F25.1 - Schizoaffective disorder, depressive type Plan Jerson is a 51 y.o. Male who carries a dx of schizoaffective DO, depressive type and opioid use disorder, mild alcohol use disorder. He presented to [facility] on 07/05/21 due to complaining of command AH telling him to cut his throat and panic attacks. Pt has been non-adherent with medications and has hx of multiple inpatient psych admissions, last at [facility] M5 in 11/2020. While in the ED, patient noted to have rhabdomyolysis, transaminitis, and NAOMI. He was admitted to [facility] for further management. Utox was positive for opiates, fentanyl, and cocaine. Plan: Per records, pt?s most recent OP med regimen was fluphenazine 5 mg QHS, remeron 15 mg QHS, amitriptyline 125 mg QHS, ambien 10 mg QHS PRN, melatonin 10 mg QHS, cogentin 1 mg BID, clonidine 0.1 mg BID, atenolol 25 mg QAM, vistaril 50 mg QID PRN, and benadryl 50 mg QHS. However, pt has been non-adherent. Will re-start clonidine 0.1 mg BID and defer further med changes for tomorrow with primary psych team. 07/10: Reviewed with pt prev medications he was discharged on in Nov 2020 on M5 and pt is agreeable to restarting these. Will re-start klonopin for anxiety/agitation, abilify for AH and depression, and remeron for depression. Pt does not want to restart prolixin at this time. Will recheck liver enzymes, CMP. Q15 min safety checks, CV Monitor response to medications. Monitor for safety in the milieu. Discharge on stabilization. Patient seen. Chart reviewed. Discussed with team. Obtain collateral contact info?as needed I spent minutes with the patient and/or on the patient floor today, greater than?50% of which was spent counseling/coordinating care. Patient educated on: medication risk/benefits Reason for contiued inpatient stay Substantial Risk for: harm to self and med/psych decompensation
[2021-07-11 08:55] VITALS: BP 118/78; PULSE 120; RESP 17; TEMP 36.7; O2SAT 98
[2021-07-11] MEDS: cloNIDine HCL 0.1 MG TABLET PO ×2 (09:04→20:07)
[2021-07-11] MEDS: Magnesium Oxide 400 MG TABLET PO ×2 (09:04→17:59)
[2021-07-11] MEDS: Folic Acid 1 MG TABLET PO (09:04)
[2021-07-11] MEDS: Thiamine HCL 100 MG TABLET 50 MG PO (09:04)
[2021-07-11] MEDS: Ferrous Sulfate 300 MG/5 ML LIQUID PO (09:04)
[2021-07-11] MEDS: ARIPiprazole 5 MG TABLET PO (09:05)
[2021-07-11] MEDS: Famotidine 20 MG TABLET PO ×2 (09:05→20:06)
[2021-07-11] MEDS: clonazePAM 1 MG TABLET PO (09:05)
[2021-07-11 09:42] LABS: Alanine Aminotransferase 257 U/L (0-40); Albumin Level 3.4 g/dL (3.5-5.0); Alkaline Phosphatase 66 U/L (39-117); Anion Gap 11 (12-20); Aspartate Amino Transferase 69 U/L (5-37); Bilirubin Total 0.4 mg/dL (0.0-1.0); Blood Urea Nitrogen 7 mg/dL (9-16); Calcium 9.1 mg/dL (8.4-10.2); Carbon Dioxide 29 mmol/L (22-29); Chloride 102 mmol/L (96-108); Estimated Glomerular Filt Rate > 60; Glucose Random 115 mg/dL (60-115); Potassium 4.2 mmol/L (3.3-5.1); Sodium 138 mmol/L (135-145); Total Protein 6.6 g/dL (6.5-8.0)
[2021-07-11] MEDS: Loperamide HCl 2 MG CAPSULE 4 MG PO (09:50)
--- NOTE | 2021-07-11 13:49 | P.PNPSI_ITS ---
Subjective Subjective Date of Service: 07/11/21 Reason For Visit: Si, Depression Subjective Notes: Conditional Voluntary Interim History: Patient seen and discussed with team. He remained in bed all day, did not participate in groups. Pt mostly in his bed, he reports feeling tired, reports poor sleep last night. He reports hearing voices, which usually happens when he uses cocaine, although reports it has worsened. He reports SI, no plan or intent while on the unit but reports tired of living life with ongoing substance use. Medication Compliance: Yes Side effects from medications: No Review of Systems Review of Systems CVS: No c/o chest pain, palpitations, no SOB [employer]: No c/o dizziness, headache GI: No c/o Nausea, Vomiting, diarrhea, constipation or heartburn Mental Status Exam Mental Status Exam Narrative: A&O. Unkempt appearance, in hospital attire, in bed with covers over him. Poor eye contact, attentive. No Tics or Tremors. No abnormal involuntary movements. Calm, guarded, difficult to engage. Non-pressured speech, spontaneous with regular rate and rhythm, quiet. No prolonged speech latency or dysarthria. Mood is ?depressed,? affect is dysphoric. Endorses passive SI. Denies SIB/HI upon inquiry. Reports command AH/VH of shadows. Denies delusional thought content, hx of persecutory thought content. Thoughts are perseverative. No known cognitive or memory impairment. Insight/ Judgment poor. Diagnostics Vital Signs (24Hr): Vital Signs - 24 hr 07/10/21 15:03 07/10/21 20:16 07/11/21 08:55 Temperature 98.3 F 98.1 F Pulse Rate 95 108 H 120 H Respiratory Rate 18 17 Blood Pressure 133/79 133/83 118/78 Pulse Oximetry 96 96 98 Labs Results: 07/11/21 08:44 Labs: Laboratory Results - last 48 hr 07/11/21 08:44 Sodium 138 Potassium 4.2 D Chloride 102 Carbon Dioxide 29 Anion Gap 11 L BUN 7 L D Creatinine 0.82 Estim Creat Clear Calc TNP Estimated GFR > 60 Random Glucose 115 Calcium 9.1 Total Bilirubin 0.4 AST 69 H ALT 257 H Alkaline Phosphatase 66 Total Protein 6.6 Albumin 3.4 L Medications Medications Current Medications Acetaminophen (Acetaminophen 325 Mg Tablet) 650 mg PO Q6H PRN PRN Reason: Headache/Pain Mild Scale (1-3) Al Hydroxide/Mg Hydroxide (Magnesium Hydrox/Alum Hydrox 30 Ml Oral.Susp) 30 ml PO Q6H PRN PRN Reason: Heartburn/Nausea Last Admin: 07/10/21 15:47 Dose: 30 ml Documented by: Aripiprazole (Aripiprazole 5 Mg Tablet) 5 mg PO DAILY [facility] Last Admin: 07/11/21 09:05 Dose: 5 mg Documented by: Bacitracin (Bacitracin Oint 14 Gm Tube) 1 appl TOPICAL BID [facility] Last Admin: 07/11/21 09:08 Dose: Not Given Documented by: Clonazepam (Clonazepam 1 Mg Tablet) 1 mg PO BEDTIME [facility] Last Admin: 07/10/21 20:10 Dose: 1 mg Documented by: Clonazepam (Clonazepam 1 Mg Tablet) 1 mg PO DAILY PRN PRN Reason: anxiety, agitation Last Admin: 07/11/21 09:05 Dose: 1 mg Documented by: Clonidine HCl (Clonidine Hcl 0.1 Mg Tablet) 0.1 mg PO BID [facility]; Protocol Last Admin: 07/11/21 09:04 Dose: 0.1 mg Documented by: Famotidine (Famotidine/Pf 20 Mg/2 Ml Vial) 20 mg IVPUSH BID [facility] Last Admin: 07/11/21 09:08 Dose: Not Given Documented by: Famotidine (Famotidine 20 Mg Tablet) 20 mg PO BID [facility] Last Admin: 07/11/21 09:05 Dose: 20 mg Documented by: Ferrous Sulfate (Ferrous Sulfate 300 Mg/5 Ml Liquid) 300 mg PO DAILY [facility] Last Admin: 07/11/21 09:04 Dose: 300 mg Documented by: Folic Acid (Folic Acid 1 Mg Tablet) 1 mg PO DAILY [facility] Last Admin: 07/11/21 09:04 Dose: 1 mg Documented by: Hydroxyzine HCl (Hydroxyzine Hcl 25 Mg Tablet) 25 mg PO Q6H PRN PRN Reason: Anxiety Hydroxyzine HCl (Hydroxyzine Hcl 25 Mg Tablet) 25 mg PO BEDTIME PRN PRN Reason: Anxiety Last Admin: 07/09/21 21:09 Dose: 25 mg Documented by: Lidocaine (Lidocaine 4 % Patch Adh..Patch) 1 patch TRANSDERMA DAILY [facility]; Protocol Last Admin: 07/11/21 09:08 Dose: Not Given Documented by: Loperamide HCl (Loperamide Hcl 2 Mg Capsule) 2 mg PO Q4H PRN PRN Reason: Loose Stool Magnesium Hydroxide (Milk Of Magnesia 30 Ml Oral.Susp) 30 ml PO DAILY PRN PRN Reason: Constipation Magnesium Oxide (Magnesium Oxide 400 Mg Tablet) 400 mg PO BIDPC [facility] Last Admin: 07/11/21 09:04 Dose: 400 mg Documented by: Melatonin (Melatonin 3 Mg Tablet) 6 mg PO BEDTIME PRN PRN Reason: Insomnia Last Admin: 07/09/21 21:09 Dose: 6 mg Documented by: Mirtazapine (Mirtazapine 7.5 Mg Tablet) 7.5 mg PO BEDTIME [facility] Last Admin: 07/10/21 20:10 Dose: 7.5 mg Documented by: Ondansetron HCl (Ondansetron Odt 8 Mg Tab.Rapdis) 8 mg TRANSLINGU Q8H PRN PRN Reason: nausea Senna (Sennosides 8.6 Mg Tablet) 17.2 mg PO BEDTIME PRN PRN Reason: Constipation Thiamine HCl (Thiamine Hcl 100 Mg Tablet) 50 mg PO DAILY [facility] Last Admin: 07/11/21 09:04 Dose: 50 mg Documented by: Trazodone HCl (Trazodone Hcl 50 Mg Tablet) 50 mg PO BEDTIME PRN PRN Reason: Insomnia Zolpidem Tartrate (Zolpidem Tartrate 5 Mg Tablet) 10 mg PO BEDTIME PRN PRN Reason: Insomnia Last Admin: 07/10/21 21:27 Dose: 10 mg Documented by: Allergies Allergies Allergy/AdvReac Type Severity Reaction Status Date / Time trazodone [TRAZODONE] Allergy Severe FACIAL Verified 06/23/21 08:15 SWELLING, swelling cat dander [CATS] Allergy Intermediate FACIAL Verified 06/23/21 08:15 ITCHING doxepin [DOXEPIN] Allergy Intermediate WEIGHT Verified 06/23/21 08:15 GAIN/LEG SWELLING Iodinated Contrast Media Allergy Intermediate ITCHING Verified 06/23/21 08:15 [IV DYE, IODINE CONTAINING CONTRAST ] nitroglycerin [NITROGLYCERIN] Allergy Unknown UNKNOWN Verified 06/23/21 08:15 tramadol [TRAMADOL] Allergy Unknown UNKNOWN, Verified 06/23/21 08:15 dry mouth ibuprofen [From MOTRIN] AdvReac Intermediate GI UPSET Verified 06/23/21 08:15 quetiapine [From SEROQUEL] AdvReac Intermediate FACIAL Verified 06/23/21 08:15 SWELLING aspirin [ASPIRIN] AdvReac Mild Stomach Verified 06/23/21 08:15 Upset Ibuprofen Allergy Unknown stomach Uncoded 01/30/21 10:12 ache IV contrast Allergy Unknown Unknown Uncoded 01/30/21 10:12 Motrin Allergy Unknown stomach Uncoded 01/30/21 10:12 pain Assessment & Plan Assessment & Plan (1) Alcohol use disorder, moderate, in controlled environment: Status: Acute Code(s): F10.20 - Alcohol dependence, uncomplicated (2) Opioid use disorder: Status: Acute Code(s): F11.99 - Opioid use, unspecified with unspecified opioid-induced disorder (3) Schizoaffective disorder, depressive type: Status: Acute Code(s): F25.1 - Schizoaffective disorder, depressive type Plan Jerson is a 51 y.o. Male who carries a dx of schizoaffective DO, depressive type and opioid use disorder, mild alcohol use disorder. He presented to [facility] on 07/05/21 due to complaining of command AH telling him to cut his throat and panic attacks. Pt has been non-adherent with medications and has hx of multiple inpatient psych admissions, last at [facility] M5 in 11/2020. While in the ED, patient noted to have rhabdomyolysis, transaminitis, and NAOMI. [place] [facility] [place] Utox was positive for opiates, fentanyl, and cocaine. Plan: Per records, pt?s most recent OP med regimen was fluphenazine 5 mg QHS, remeron 15 mg QHS, amitriptyline 125 mg QHS, ambien 10 mg QHS PRN, melatonin 10 mg QHS, cogentin 1 mg BID, clonidine 0.1 mg BID, atenolol 25 mg QAM, vistaril 50 mg QID PRN, and benadryl 50 mg QHS. However, pt has been non-adherent. Will re- start clonidine 0.1 mg BID and defer further med changes for tomorrow with primary psych team. 07/10: Reviewed with pt prev medications he was discharged on in Nov 2020 on M5 and pt is agreeable to restarting these. Will re-start klonopin for anxiety/agitation, abilify for AH and depression, and remeron for depression. Pt does not want to restart prolixin at this time. Will recheck liver enzymes, CMP. 07/11 increase abilify to 10mg po daily for AH. switch clonazepam for ativan for fast sleep onset- but also discussed with pt that he will not be discharged with rx for controlled substances given risk of abuse/misuse as he continues to work on recovery. continue clonidine 0.1mg po qhs, remeron increase to 15mg po qhs. Pt reports he wants to go to [facility], does have bedroom that he rents and may have to return there is no bed open at [facility]. I spent minutes with the patient and/or on the patient floor today, greater than?50% of which was spent counseling/coordinating care. Reason for contiued inpatient stay Substantial Risk for: harm to self
[2021-07-11 14:28] VITALS: BMI 28.7
[2021-07-11] MEDS: hydrOXYzine HCL 25 MG TABLET PO (14:57)
[2021-07-11 15:06] VITALS: BP 102/70; PULSE 94; RESP 17; TEMP 36.8; O2SAT 98
--- NOTE | 2021-07-11 16:46 | PC.NURSE ---
Addendum entered by Tarah Monique 07/11/21 16:53: Provider notified of results Original Note: Bladder scan completed, 304ml residual recorded.
--- NOTE | 2021-07-11 17:54 | PC.NURSE ---
Pt voided 200ml into a hat, post void residual recorded via bladder scan was 171ml. Provider notified.
[2021-07-11] MEDS: Loperamide HCl 2 MG CAPSULE PO (18:55)
[2021-07-11] MEDS: Mirtazapine 15 MG TABLET PO (20:06)
[2021-07-11] MEDS: LORazepam 1 MG TABLET PO (20:07)
[2021-07-11] MEDS: Bacitracin Oint 14 GM TUBE 1 APPL TOPICAL (20:10)
[2021-07-11] MEDS: Zolpidem Tartrate 5 MG TABLET PO (20:11)
[2021-07-11 20:13] VITALS: BP 123/75; PULSE 68; RESP 17; TEMP 36.8; O2SAT 99
[2021-07-12] MEDS: Acetaminophen 325 MG TABLET 650 MG PO (04:29)
[2021-07-12 08:57] VITALS: BP 111/57; PULSE 69; RESP 16; TEMP 37; O2SAT 97
[2021-07-12] MEDS: cloNIDine HCL 0.1 MG TABLET PO ×2 (09:46→20:27)
[2021-07-12] MEDS: Famotidine 20 MG TABLET PO ×2 (09:46→20:27)
[2021-07-12] MEDS: ARIPiprazole 10 MG TABLET PO (09:47)
[2021-07-12] MEDS: Folic Acid 1 MG TABLET PO (09:47)
[2021-07-12] MEDS: Loperamide HCl 2 MG CAPSULE PO (09:55)
[2021-07-12] MEDS: hydrOXYzine HCL 25 MG TABLET PO (09:55)
[2021-07-12] MEDS: Ondansetron ODT 8 MG TAB.RAPDIS TRANSLINGU ×2 (12:10→18:41)
--- NOTE | 2021-07-12 12:18 | P.PNPSI_ITS ---
Subjective Subjective Date of Service: 07/12/21 Reason For Visit: Si, Depression Subjective Notes: Conditional Voluntary Interim History: Pt reports feeling anxious, irritable this morning. He reports he slept well. He reports nausea, new for past 1-2 days. No abdominal pain. He asks for ativan, which pt has been informed will not be prescribed on discharge given risks of misuse or abuse as he continues to work on recovery. Pt reports passive SI, no plan or intent. Yesterday he had told this publications writer that he was interested in [facility], today, he reports he may just want to return home. He states he wants to think about it. He continues to report AH, denies CAH. Pt mostly in room. Medication Compliance: Yes Side effects from medications: No Attending Groups: No Mental Status Exam Mental Status Exam Narrative: A&O. Unkempt appearance, in hospital attire, in bed with covers over him. Poor eye contact, attentive. No Tics or Tremors. No abnormal involuntary movements. Calm, guarded, difficult to engage. Non-pressured speech, spontaneous with regular rate and rhythm, quiet. No prolonged speech latency or dysarthria. Mood is ?irritable,? affect is dysphoric. Endorses passive SI. Denies SIB/HI upon inquiry. Reports command AH/VH of shadows. Denies delusional thought content, hx of persecutory thought content. Thoughts are perseverative. No known cognitive or memory impairment. Insight/ Judgment poor. Diagnostics Vital Signs (24Hr): Vital Signs - 24 hr 07/11/21 15:06 07/11/21 20:13 07/12/21 08:57 Temperature 98.2 F 98.3 F 98.6 F Pulse Rate 94 68 69 Respiratory Rate 17 17 16 Blood Pressure 102/70 123/75 111/57 L Pulse Oximetry 98 99 97 BMI result Body Mass Index 28.7 Labs Results: 07/11/21 08:44 Labs: Laboratory Results - last 48 hr 07/11/21 08:44 Sodium 138 Potassium 4.2 D Chloride 102 Carbon Dioxide 29 Anion Gap 11 L BUN 7 L D Creatinine 0.82 Estim Creat Clear Calc TNP Estimated GFR > 60 Random Glucose 115 Calcium 9.1 Total Bilirubin 0.4 AST 69 H ALT 257 H Alkaline Phosphatase 66 Total Protein 6.6 Albumin 3.4 L Medications Medications Current Medications Acetaminophen (Acetaminophen 325 Mg Tablet) 650 mg PO Q6H PRN PRN Reason: Headache/Pain Mild Scale (1-3) Last Admin: 07/12/21 04:29 Dose: 650 mg Documented by: Al Hydroxide/Mg Hydroxide (Magnesium Hydrox/Alum Hydrox 30 Ml Oral.Susp) 30 ml PO Q6H PRN PRN Reason: Heartburn/Nausea Last Admin: 07/10/21 15:47 Dose: 30 ml Documented by: Aripiprazole (Aripiprazole 10 Mg Tablet) 10 mg PO DAILY [facility] Last Admin: 07/12/21 09:47 Dose: 10 mg Documented by: Bacitracin (Bacitracin Oint 14 Gm Tube) 1 appl TOPICAL BID [facility] Last Admin: 07/12/21 11:30 Dose: Not Given Documented by: Clonidine HCl (Clonidine Hcl 0.1 Mg Tablet) 0.1 mg PO BID [facility]; Protocol Last Admin: 07/12/21 09:46 Dose: 0.1 mg Documented by: Famotidine (Famotidine 20 Mg Tablet) 20 mg PO BID [facility] Last Admin: 07/12/21 09:46 Dose: 20 mg Documented by: Ferrous Sulfate (Ferrous Sulfate 324 Mg Tablet.Dr) 325 mg PO DAILY [facility] Folic Acid (Folic Acid 1 Mg Tablet) 1 mg PO DAILY [facility] Last Admin: 07/12/21 09:47 Dose: 1 mg Documented by: Hydroxyzine HCl (Hydroxyzine Hcl 25 Mg Tablet) 25 mg PO Q6H PRN PRN Reason: Anxiety Last Admin: 07/12/21 09:55 Dose: 25 mg Documented by: Lidocaine (Lidocaine 4 % Patch Adh..Patch) 1 patch TRANSDERMA DAILY [facility]; Protocol Last Admin: 07/12/21 11:41 Dose: Not Given Documented by: Loperamide HCl (Loperamide Hcl 2 Mg Capsule) 2 mg PO Q4H PRN PRN Reason: Loose Stool Last Admin: 07/12/21 09:55 Dose: 2 mg Documented by: Lorazepam (Lorazepam 1 Mg Tablet) 1 mg PO BID [facility] Magnesium Hydroxide (Milk Of Magnesia 30 Ml Oral.Susp) 30 ml PO DAILY PRN PRN Reason: Constipation Melatonin (Melatonin 3 Mg Tablet) 6 mg PO BEDTIME PRN PRN Reason: Insomnia Last Admin: 07/09/21 21:09 Dose: 6 mg Documented by: Mirtazapine (Mirtazapine 15 Mg Tablet) 15 mg PO BEDTIME [facility] Last Admin: 07/11/21 20:06 Dose: 15 mg Documented by: Ondansetron HCl (Ondansetron Odt 8 Mg Tab.Rapdis) 8 mg TRANSLINGU Q8H PRN PRN Reason: nausea Last Admin: 07/12/21 12:10 Dose: 8 mg Documented by: Senna (Sennosides 8.6 Mg Tablet) 17.2 mg PO BEDTIME PRN PRN Reason: Constipation Thiamine HCl (Thiamine Hcl 100 Mg Tablet) 50 mg PO DAILY [facility] Last Admin: 07/12/21 12:11 Dose: Not Given Documented by: Zolpidem Tartrate (Zolpidem Tartrate 5 Mg Tablet) 5 mg PO BEDTIME PRN PRN Reason: Insomnia Last Admin: 07/11/21 20:11 Dose: 5 mg Documented by: Allergies Allergies Allergy/AdvReac Type Severity Reaction Status Date / Time trazodone [TRAZODONE] Allergy Severe FACIAL Verified 06/23/21 08:15 SWELLING, swelling cat dander [CATS] Allergy Intermediate FACIAL Verified 06/23/21 08:15 ITCHING doxepin [DOXEPIN] Allergy Intermediate WEIGHT Verified 06/23/21 08:15 GAIN/LEG SWELLING Iodinated Contrast Media Allergy Intermediate ITCHING Verified 06/23/21 08:15 [IV DYE, IODINE CONTAINING CONTRAST ] nitroglycerin [NITROGLYCERIN] Allergy Unknown UNKNOWN Verified 06/23/21 08:15 tramadol [TRAMADOL] Allergy Unknown UNKNOWN, Verified 06/23/21 08:15 dry mouth ibuprofen [From MOTRIN] AdvReac Intermediate GI UPSET Verified 06/23/21 08:15 quetiapine [From SEROQUEL] AdvReac Intermediate FACIAL Verified 06/23/21 08:15 SWELLING aspirin [ASPIRIN] AdvReac Mild Stomach Verified 06/23/21 08:15 Upset Ibuprofen Allergy Unknown stomach Uncoded 01/30/21 10:12 ache IV contrast Allergy Unknown Unknown Uncoded 01/30/21 10:12 Motrin Allergy Unknown stomach Uncoded 01/30/21 10:12 pain Assessment & Plan Assessment & Plan (1) Alcohol use disorder, moderate, in controlled environment: Status: Acute Code(s): F10.20 - Alcohol dependence, uncomplicated (2) Opioid use disorder: Status: Acute Code(s): F11.99 - Opioid use, unspecified with unspecified opioid-induced disorder (3) MDD (major depressive disorder), recurrent, severe, with psychosis: Status: Acute Code(s): F33.3 - Major depressive disorder, recurrent, severe with psychotic symptoms Plan Jerson is a 51 y.o. Male who carries a dx of schizoaffective DO, depressive type and opioid use disorder, mild alcohol use disorder. He presented to [facility] on 07/05/21 due to complaining of command AH telling him to cut his throat and panic attacks. Pt has been non-adherent with medications and has hx of multiple inpatient psych admissions, last at [facility] [place] M5 in 11/2020. While in the ED, patient noted to have rhabdomyolysis, transaminitis, and NAOMI. He was [place] [facility] [place]. Utox was positive for opiates, fentanyl, and cocaine. Plan: Per records, pt?s most recent OP med regimen was fluphenazine 5 mg QHS, remeron 15 mg QHS, amitriptyline 125 mg QHS, ambien 10 mg QHS PRN, melatonin 10 mg QHS, cogentin 1 mg BID, clonidine 0.1 mg BID, atenolol 25 mg QAM, vistaril 50 mg QID PRN, and benadryl 50 mg QHS. However, pt has been non-adherent. Will re- start clonidine 0.1 mg BID and defer further med changes for tomorrow with primary psych team. 07/10: Reviewed with pt prev medications he was discharged on in Nov 2020 on M5 and pt is agreeable to restarting these. Will re-start klonopin for anxiety/agitation, abilify for AH and depression, and remeron for depression. Pt does not want to restart prolixin at this time. Will recheck liver enzymes, CMP. 07/11 increase abilify to 10mg po daily for AH. switch clonazepam for ativan for fast sleep onset- but also discussed with pt that he will not be discharged with rx for controlled substances given risk of abuse/misuse as he continues to work on recovery. continue clonidine 0.1mg po qhs, remeron increase to 15mg po qhs. Pt reports he wants to go to [facility], does have bedroom that he rents and may have to return there is no bed open at [facility]. 07/12- will d/c mag oxide due to nausea, recheck mag and cmp. continue abilify 10mg po daily- increase as neededto target AH. Pt no longer interested in referral for CSS. Planned d/c on 07/17/21. I spent minutes with the patient and/or on the patient floor today, greater than?50% of which was spent counseling/coordinating care. Reason for contiued inpatient stay Substantial Risk for: harm to self
[2021-07-12] MEDS: LORazepam 1 MG TABLET PO ×2 (12:56→20:27)
[2021-07-12 13:00] LABS: Alanine Aminotransferase 188 U/L (0-40); Albumin Level 3.4 g/dL (3.5-5.0); Alkaline Phosphatase 62 U/L (39-117); Anion Gap 12 (12-20); Aspartate Amino Transferase 54 U/L (5-37); Bilirubin Total 0.3 mg/dL (0.0-1.0); Blood Urea Nitrogen 9 mg/dL (9-16); Calcium 9.2 mg/dL (8.4-10.2); Carbon Dioxide 28 mmol/L (22-29); Chloride 104 mmol/L (96-108); Estimated Glomerular Filt Rate > 60; Glucose Random 141 mg/dL (60-115); Magnesium 2.1 mg/dL (1.6-2.6); Potassium 4.8 mmol/L (3.3-5.1); Sodium 139 mmol/L (135-145); Total Protein 6.6 g/dL (6.5-8.0)
[2021-07-12 20:24] VITALS: BP 113/66; PULSE 91; TEMP 36.8; O2SAT 98
[2021-07-12] MEDS: Mirtazapine 15 MG TABLET PO (20:27)
[2021-07-12] MEDS: Bacitracin Oint 14 GM TUBE 1 APPL TOPICAL (20:31)
[2021-07-12] MEDS: Zolpidem Tartrate 5 MG TABLET PO (22:05)
[2021-07-13 08:00] VITALS: PULSE 67
[2021-07-13 08:56] VITALS: BP 98/55; PULSE 67; RESP 18; TEMP 36.9; O2SAT 96
[2021-07-13] MEDS: LORazepam 1 MG TABLET PO ×2 (08:58→20:16)
[2021-07-13] MEDS: Ferrous Sulfate 324 MG TABLET.DR 325 MG PO (08:58)
[2021-07-13] MEDS: ARIPiprazole 10 MG TABLET PO (08:59)
[2021-07-13] MEDS: Thiamine HCL 100 MG TABLET 50 MG PO (08:59)
[2021-07-13] MEDS: cloNIDine HCL 0.1 MG TABLET PO ×2 (08:59→20:48)
[2021-07-13] MEDS: Folic Acid 1 MG TABLET PO (09:00)
[2021-07-13] MEDS: Famotidine 20 MG TABLET PO ×2 (09:00→20:16)
[2021-07-13] MEDS: Acetaminophen 325 MG TABLET 650 MG PO (09:28)
--- NOTE | 2021-07-13 11:58 | HO.PSYCHPN ---
Subjective Subjective Date of Service: 07/13/21 Reason For Visit: Si, Depression Subjective Notes: Conditional Voluntary Interim History: Pt reports anxiety and irritability. He reports racing thoughts and seeing frightening images, snakes. He denies nausea today. No abdominal pain He continue to report passive SI, no plan or intent. He continues to report AH, denies CAH. Medication Compliance: Yes Side effects from medications: No Attending Groups: No Review of Systems monitor N & V Medical Review of Systems: unchanged Review of Systems Review of Systems CVS: No c/o chest pain, palpitations, no SOB ACID CONDENSER: No c/o dizziness, headache GI: No c/o Nausea, Vomiting, diarrhea, constipation or heartburn Mental Status Exam Mental Status Exam Narrative: A&O. Unkempt appearance, in hospital attire, in bed with covers over him. Poor eye contact, attentive. No Tics or Tremors. No abnormal involuntary movements. Calm, guarded, difficult to engage. Non-pressured speech, spontaneous with regular rate and rhythm, quiet. Mood is ?irritable,? affect is dysphoric. Endorses passive SI. Denies SIB/HI upon inquiry. Thoughts are perseverative. No known cognitive or memory impairment. Insight/ Judgment poor. Diagnostics Vital Signs (24Hr): Vital Signs - 24 hr 07/12/21 20:24 07/13/21 08:56 Temperature 98.3 F 98.5 F Pulse Rate 91 67 Respiratory Rate 18 Blood Pressure 113/66 98/55 L Pulse Oximetry 98 96 BMI result Body Mass Index 28.7 Labs Results: 07/12/21 12:25 Labs: Laboratory Results - last 48 hr 07/12/21 12:25 Sodium 139 Potassium 4.8 Chloride 104 Carbon Dioxide 28 Anion Gap 12 BUN 9 Creatinine 0.99 Estim Creat Clear Calc 86.0 Estimated GFR > 60 Random Glucose 141 H Calcium 9.2 Magnesium 2.1 Total Bilirubin 0.3 AST 54 H ALT 188 H Alkaline Phosphatase 62 Total Protein 6.6 Albumin 3.4 L Medications Medications Current Medications Acetaminophen (Acetaminophen 325 Mg Tablet) 650 mg PO Q6H PRN PRN Reason: Headache/Pain Mild Scale (1-3) Last Admin: 07/13/21 09:28 Dose: 650 mg Documented by: Al Hydroxide/Mg Hydroxide (Magnesium Hydrox/Alum Hydrox 30 Ml Oral.Susp) 30 ml PO Q6H PRN PRN Reason: Heartburn/Nausea Last Admin: 07/10/21 15:47 Dose: 30 ml Documented by: Aripiprazole (Aripiprazole 10 Mg Tablet) 10 mg PO DAILY [facility] Last Admin: 07/13/21 08:59 Dose: 10 mg Documented by: Bacitracin (Bacitracin Oint 14 Gm Tube) 1 appl TOPICAL BID [facility] Last Admin: 07/13/21 09:00 Dose: Not Given Documented by: Clonidine HCl (Clonidine Hcl 0.1 Mg Tablet) 0.1 mg PO BID [facility]; Protocol Last Admin: 07/13/21 08:59 Dose: 0.1 mg Documented by: Famotidine (Famotidine 20 Mg Tablet) 20 mg PO BID [facility] Last Admin: 07/13/21 09:00 Dose: 20 mg Documented by: Ferrous Sulfate (Ferrous Sulfate 324 Mg Tablet.Dr) 324 mg PO DAILY [facility] Folic Acid (Folic Acid 1 Mg Tablet) 1 mg PO DAILY [facility] Last Admin: 07/13/21 09:00 Dose: 1 mg Documented by: Hydroxyzine HCl (Hydroxyzine Hcl 25 Mg Tablet) 25 mg PO Q6H PRN PRN Reason: Anxiety Last Admin: 07/12/21 09:55 Dose: 25 mg Documented by: Lidocaine (Lidocaine 4 % Patch Adh..Patch) 1 patch TRANSDERMA DAILY [facility]; Protocol Last Admin: 07/13/21 09:00 Dose: Not Given Documented by: Loperamide HCl (Loperamide Hcl 2 Mg Capsule) 2 mg PO Q4H PRN PRN Reason: Loose Stool Last Admin: 07/12/21 09:55 Dose: 2 mg Documented by: Lorazepam (Lorazepam 1 Mg Tablet) 1 mg PO BID [facility] Last Admin: 07/13/21 08:58 Dose: 1 mg Documented by: Magnesium Hydroxide (Milk Of Magnesia 30 Ml Oral.Susp) 30 ml PO DAILY PRN PRN Reason: Constipation Melatonin (Melatonin 3 Mg Tablet) 6 mg PO BEDTIME PRN PRN Reason: Insomnia Last Admin: 07/09/21 21:09 Dose: 6 mg Documented by: Mirtazapine (Mirtazapine 15 Mg Tablet) 15 mg PO BEDTIME [facility] Last Admin: 07/12/21 20:27 Dose: 15 mg Documented by: Ondansetron HCl (Ondansetron Odt 8 Mg Tab.Rapdis) 8 mg TRANSLINGU Q8H PRN PRN Reason: nausea Last Admin: 07/12/21 18:41 Dose: 8 mg Documented by: Senna (Sennosides 8.6 Mg Tablet) 17.2 mg PO BEDTIME PRN PRN Reason: Constipation Thiamine HCl (Thiamine Hcl 100 Mg Tablet) 50 mg PO DAILY [facility] Last Admin: 07/13/21 08:59 Dose: 50 mg Documented by: Zolpidem Tartrate (Zolpidem Tartrate 5 Mg Tablet) 5 mg PO BEDTIME PRN PRN Reason: Insomnia Last Admin: 07/12/21 22:05 Dose: 5 mg Documented by: Allergies Allergies Allergy/AdvReac Type Severity Reaction Status Date / Time trazodone [TRAZODONE] Allergy Severe FACIAL Verified 06/23/21 08:15 SWELLING, swelling cat dander [CATS] Allergy Intermediate FACIAL Verified 06/23/21 08:15 ITCHING doxepin [DOXEPIN] Allergy Intermediate WEIGHT Verified 06/23/21 08:15 GAIN/LEG SWELLING Iodinated Contrast Media Allergy Intermediate ITCHING Verified 06/23/21 08:15 [IV DYE, IODINE CONTAINING CONTRAST ] nitroglycerin [NITROGLYCERIN] Allergy Unknown UNKNOWN Verified 06/23/21 08:15 tramadol [TRAMADOL] Allergy Unknown UNKNOWN, Verified 06/23/21 08:15 dry mouth ibuprofen [From MOTRIN] AdvReac Intermediate GI UPSET Verified 06/23/21 08:15 quetiapine [From SEROQUEL] AdvReac Intermediate FACIAL Verified 06/23/21 08:15 SWELLING aspirin [ASPIRIN] AdvReac Mild Stomach Verified 06/23/21 08:15 Upset Ibuprofen Allergy Unknown stomach Uncoded 01/30/21 10:12 ache IV contrast Allergy Unknown Unknown Uncoded 01/30/21 10:12 Motrin Allergy Unknown stomach Uncoded 01/30/21 10:12 pain Assessment & Plan Assessment & Plan (1) Alcohol use disorder, moderate, in controlled environment: Status: Acute Code(s): F10.20 - Alcohol dependence, uncomplicated Assessment and Plan: liver enzymes high but trending down (2) Opioid use disorder: Status: Acute Code(s): F11.99 - Opioid use, unspecified with unspecified opioid-induced disorder (3) MDD (major depressive disorder), recurrent, severe, with psychosis: Status: Acute Code(s): F33.3 - Major depressive disorder, recurrent, severe with psychotic symptoms Plan Jerson is a 51 y.o. Male who carries a dx of schizoaffective DO, depressive type and opioid use disorder, mild alcohol use disorder. [place] [facility] [place] due to complaining of command AH telling him to cut his throat and panic attacks. Pt has been non-adherent with medications and has hx of multiple inpatient psych admissions, [place] [facility] [place]. While in the ED, patient noted to have rhabdomyolysis, transaminitis, and NAOMI. He was [place] [facility] [place] Utox was positive for opiates, fentanyl, and cocaine. Plan: Per records, pt?s most recent OP med regimen was fluphenazine 5 mg QHS, remeron 15 mg QHS, amitriptyline 125 mg QHS, ambien 10 mg QHS PRN, melatonin 10 mg QHS, cogentin 1 mg BID, clonidine 0.1 mg BID, atenolol 25 mg QAM, vistaril 50 mg QID PRN, and benadryl 50 mg QHS. However, pt has been non-adherent. Will re-start clonidine 0.1 mg BID and defer further med changes for tomorrow with primary psych team. 07/10: Reviewed with pt prev medications he was discharged on in Nov 2020 on M5 and pt is agreeable to restarting these. Will re-start klonopin for anxiety/agitation, abilify for AH and depression, and remeron for depression. Pt does not want to restart prolixin at this time. Will recheck liver enzymes, CMP. 07/11 increase abilify to 10mg po daily for AH. switch clonazepam for ativan for fast sleep onset- but also discussed with pt that he will not be discharged with rx for controlled substances given risk of abuse/misuse as he continues to work on recovery. continue clonidine 0.1mg po qhs, remeron increase to 15mg po qhs. Pt reports he wants to go to [facility], does have bedroom that he rents and may have to return there is no bed open at [facility]. 07/12- will d/c mag oxide due to nausea, recheck mag and cmp. continue abilify 10mg po daily- increase as neededto target AH. Pt no longer interested in referral for [facility]. Planned d/c on 07/17/21. 07/13 liver enzymes still high but trending down. continue current treatment plan I spent minutes with the patient and/or on the patient floor today, greater than?50% of which was spent counseling/coordinating care. Reason for contiued inpatient stay Substantial Risk for: harm to self, inability to function and med/psych decompensation
[2021-07-13] MEDS: hydrOXYzine HCL 25 MG TABLET PO (12:17)
--- NOTE | 2021-07-13 12:23 | PC.NURSE ---
Patient c/o #9 chest discomfort. BP 98/55, HR 67, RR 18, T 98.5, SPO2 95-96% . No diaphoresis, no radiation. Tylenol administered with + effects. MONO Thomas notified. Continues to c/o anxiety.
[2021-07-13 16:10] VITALS: PULSE 68
[2021-07-13] MEDS: Ondansetron ODT 8 MG TAB.RAPDIS TRANSLINGU (16:18)
[2021-07-13] MEDS: Magnesium Hydrox/Alum Hydrox 30 ML ORAL.SUSP PO (17:45)
[2021-07-13] MEDS: Mirtazapine 15 MG TABLET PO (20:48)
[2021-07-13 20:50] VITALS: BP 129/68; PULSE 98; TEMP 36.6; O2SAT 97
[2021-07-13] MEDS: Bacitracin Oint 14 GM TUBE 1 APPL TOPICAL (21:14)
[2021-07-13] MEDS: Zolpidem Tartrate 5 MG TABLET PO (21:24)
--- NOTE | 2021-07-14 | ECG_ITS ---
Test Reason : cp Blood Pressure : / mmHG Vent. Rate : 063 BPM Atrial Rate : 063 BPM P-R Int : 116 ms QRS Dur : 084 ms QT Int : 380 ms P-R-T Axes : 012 004 -05 degrees QTc Int : 388 ms Normal sinus rhythm Minimal voltage criteria for LVH, may be normal variant ( R in aVL ) Borderline ECG When compared with ECG of 10-JUL-2021 16:00, Nonspecific T wave abnormality no longer evident in Lateral leads Referred By: Talita Thomas Electronically Signed By:Scottie Figueroa
[2021-07-14 06:00] VITALS: BP 107/53; PULSE 77; RESP 18; TEMP 37; O2SAT 96
[2021-07-14] MEDS: cloNIDine HCL 0.1 MG TABLET PO ×2 (08:37→20:21)
[2021-07-14] MEDS: Famotidine 20 MG TABLET PO (08:37)
[2021-07-14] MEDS: Folic Acid 1 MG TABLET PO (08:37)
[2021-07-14] MEDS: LORazepam 1 MG TABLET PO ×2 (08:37→20:21)
[2021-07-14] MEDS: ARIPiprazole 10 MG TABLET PO (08:38)
[2021-07-14] MEDS: Thiamine HCL 100 MG TABLET 50 MG PO (08:38)
[2021-07-14] MEDS: Ferrous Sulfate 324 MG TABLET.DR PO (08:38)
[2021-07-14] MEDS: Ondansetron ODT 8 MG TAB.RAPDIS TRANSLINGU (09:15)
[2021-07-14] MEDS: Magnesium Hydrox/Alum Hydrox 30 ML ORAL.SUSP PO (12:50)
--- NOTE | 2021-07-14 13:15 | PC.NURSE ---
Patient continues to c/o #9 discomfort in chest. VSS 107/53, 77, 96% RA. No diaphoresis, no c/o radiation. Loretta Thomas notified. Mylanta administered. Reports medication he gets at night is helpful.
--- NOTE | 2021-07-14 14:26 | P.PNPSI_ITS ---
Subjective Subjective Date of Service: 07/14/21 Reason For Visit: Si, Depression Subjective Notes: Conditional Voluntary Interim History: Pt reports continued chest pain. no relief with pepcid, mylanta. several ekgs done and echo. chest xray shows enlarged heart compared with old image. RBC trending down. Liver enzymes high but trending down. Pt still anxious and irritable. anxiety. He reports racing thoughts and seeing frightening images, having frightening dream. He continue to report passive SI, no plan or intent. He continues to report AH, denies CAH. Medication Compliance: Yes Side effects from medications: No Attending Groups: No Review of Systems Acute medical concerns: Yes chest pain Medical Review of Systems: unchanged Review of Systems: reviewed Review of Systems Review of Systems CVS: c/o chest pain, no palpitations, no SOB SYSTEMS ADMINISTRATION ANALYST: No c/o dizziness, headache GI: c/o Nausea, one episode of unobsevered vomiting, no diarrhea, constipation Cardiovascular: Reports chest pain and Reports epigastric discomfort Gastrointestinal: Reports as per [facility] Mental Status Exam Mental Status Exam Narrative: A&O. Unkempt appearance, in hospital attire, in bed with covers over him. Poor eye contact, attentive. No Tics or Tremors. No abnormal involuntary movements. Calm, guarded. Non-pressured speech, spontaneous with regular rate and rhythm, quiet. Mood is ?irritable,? affect is dysphoric. Endorses passive SI. Denies SIB/HI upon inquiry. Thoughts are perseverative. No known cognitive or memory impairment. Insight/ Judgment poor. Diagnostics Vital Signs (24Hr): Vital Signs - 24 hr 07/13/21 20:50 07/14/21 06:00 Temperature 97.8 F 98.6 F Pulse Rate 98 77 Respiratory Rate 18 Blood Pressure 129/68 107/53 L Pulse Oximetry 97 96 BMI result Body Mass Index 28.7 Labs Results: 07/12/21 12:25 EKG EKG Comment: has had several ekg and echo: most recent EKG Normal sinus rhythm Moderate voltage criteria for LVH, may be normal variant ( R in aVL , Sokolow-Pickering ) Nonspecific T wave abnormality Abnormal ECG When compared with ECG of 05-JUL-2021 09:58, Nonspecific T wave abnormality now evident in Lateral leads echo Transthoracic Echocardiogram Patient (Last, First, Middle): Jerson Taveras, Gender:? Male Patient ID:? ? ? [id number] Date of : ? 1970 Age: ? 51 Procedure Date:? 07/08/2021 Procedure Type:? Transthoracic Echocardiogram Location:? S3E Height:? 165.1 cm ? Weight: ? 83.01 kg BSA: ? 1.90 m2? Heart Rate:? ? ? bpm BP:? 163 / 89 mmHg It Project Coordinator: ? ? YR Referring MD:? ? Sarah Kramer MD Table Cut Off Saw Operator:? ? Fortunato Huizar MD Symptoms:? cardiomegaly, indeterminate [id number] Study Quality: ? Fair ECG Rhythm:? ? ? Sinus ?? ? Conclusions: - 1.? Low normal LV systolic function with LVEF of 50-55%? 2. Normal cardiac valvular Doppler ? 3.? Normal RV systolic pressure? 4. No gross pericardial effusion ? Findings Left Ventricle Normal left ventricular cavity size.? There is normal left ventricular wall thickness.? The left ventricular systolic function is low normal.? The visually estimated ejection fraction is between 50-55%.? Spectral Doppler is indicative of a normal filling pattern.? There is reduce thickening of the basal inferior and basal inferoseptal wall of the LV myocardium suggestive of possible underlying wall motion abnormality Right Ventricle Normal right ventricular cavity size and systolic function. Atria Both atria are normal in size.? There is no evidence of interatrial shunt. Aortic Valve Normal aortic valve structure and function.? There is no aortic valve stenosis.? There is no aortic valve regurgitation. Mitral Valve Normal mitral valve structure and function.? There is trace mitral valve regurgitation.? There is no mitral valve stenosis. Pulmonic Valve The pulmonic valve was not well visualized. Tricuspid Valve Likely normal tricuspid valve structure and function.? There is trace tricuspid valve regurgitation.? The right ventricular systolic pressure is normal.? The right ventricular systolic pressure is 26 mmHg.? Normal right atrial pressure.? There is no evidence of pulmonary hypertension. Great Vessels All visible segments of the aorta are normal in size.? The pulmonary artery was not well visualized. Venous The inferior vena cava is normal in size and collapses greater than 50% with inspiration. Pericardium/Pleural There is no evidence of pericardial effusion. Prior Study Comparison no previous study in the last 5 years for comparison ? Imaging Radiology Impressions: abdominal ultrasound and chest xray reviewed Medications Medications Current Medications Acetaminophen (Acetaminophen 325 Mg Tablet) 650 mg PO Q6H PRN PRN Reason: Headache/Pain Mild Scale (1-3) Last Admin: 07/13/21 09:28 Dose: 650 mg Documented by: Al Hydroxide/Mg Hydroxide (Magnesium Hydrox/Alum Hydrox 30 Ml Oral.Susp) 30 ml PO Q6H PRN PRN Reason: Heartburn/Nausea Last Admin: 07/14/21 12:50 Dose: 30 ml Documented by: Aripiprazole (Aripiprazole 10 Mg Tablet) 10 mg PO DAILY [facility] Last Admin: 07/14/21 08:38 Dose: 10 mg Documented by: Bacitracin (Bacitracin Oint 14 Gm Tube) 1 appl TOPICAL BID [facility] Last Admin: 07/14/21 08:42 Dose: Not Given Documented by: Clonidine HCl (Clonidine Hcl 0.1 Mg Tablet) 0.1 mg PO BID [facility]; Protocol Last Admin: 07/14/21 08:37 Dose: 0.1 mg Documented by: Famotidine (Famotidine 20 Mg Tablet) 20 mg PO BID [facility] Last Admin: 07/14/21 08:37 Dose: 20 mg Documented by: Ferrous Sulfate (Ferrous Sulfate 324 Mg Tablet.) 324 mg PO DAILY [facility] Last Admin: 07/14/21 08:38 Dose: 324 mg Documented by: Folic Acid (Folic Acid 1 Mg Tablet) 1 mg PO DAILY [facility] Last Admin: 07/14/21 08:37 Dose: 1 mg Documented by: Hydroxyzine HCl (Hydroxyzine Hcl 25 Mg Tablet) 25 mg PO Q6H PRN PRN Reason: Anxiety Last Admin: 07/13/21 12:17 Dose: 25 mg Documented by: Lidocaine (Lidocaine 4 % Patch Adh..Patch) 1 patch TRANSDERMA DAILY [facility]; Protocol Last Admin: 07/14/21 08:43 Dose: Not Given Documented by: Loperamide HCl (Loperamide Hcl 2 Mg Capsule) 2 mg PO Q4H PRN PRN Reason: Loose Stool Last Admin: 07/12/21 09:55 Dose: 2 mg Documented by: Lorazepam (Lorazepam 1 Mg Tablet) 1 mg PO BID [facility] Last Admin: 07/14/21 08:37 Dose: 1 mg Documented by: Magnesium Hydroxide (Milk Of Magnesia 30 Ml Oral.Susp) 30 ml PO DAILY PRN PRN Reason: Constipation Melatonin (Melatonin 3 Mg Tablet) 6 mg PO BEDTIME PRN PRN Reason: Insomnia Last Admin: 07/09/21 21:09 Dose: 6 mg Documented by: Mirtazapine (Mirtazapine 15 Mg Tablet) 15 mg PO BEDTIME [facility] Last Admin: 07/13/21 20:48 Dose: 15 mg Documented by: Ondansetron HCl (Ondansetron Odt 8 Mg Tab.Rapdis) 8 mg TRANSLINGU Q8H PRN PRN Reason: nausea Last Admin: 07/14/21 09:15 Dose: 8 mg Documented by: Senna (Sennosides 8.6 Mg Tablet) 17.2 mg PO BEDTIME PRN PRN Reason: Constipation Thiamine HCl (Thiamine Hcl 100 Mg Tablet) 50 mg PO DAILY [facility] Last Admin: 07/14/21 08:38 Dose: 50 mg Documented by: Zolpidem Tartrate (Zolpidem Tartrate 5 Mg Tablet) 5 mg PO BEDTIME PRN PRN Reason: Insomnia Last Admin: 07/13/21 21:24 Dose: 5 mg Documented by: Allergies Allergies Allergy/AdvReac Type Severity Reaction Status Date / Time trazodone [TRAZODONE] Allergy Severe FACIAL Verified 06/23/21 08:15 SWELLING, swelling cat dander [CATS] Allergy Intermediate FACIAL Verified 06/23/21 08:15 ITCHING doxepin [DOXEPIN] Allergy Intermediate WEIGHT Verified 06/23/21 08:15 GAIN/LEG SWELLING Iodinated Contrast Media Allergy Intermediate ITCHING Verified 06/23/21 08:15 [IV DYE, IODINE CONTAINING CONTRAST ] nitroglycerin [NITROGLYCERIN] Allergy Unknown UNKNOWN Verified 06/23/21 08:15 tramadol [TRAMADOL] Allergy Unknown UNKNOWN, Verified 06/23/21 08:15 dry mouth ibuprofen [From MOTRIN] AdvReac Intermediate GI UPSET Verified 06/23/21 08:15 quetiapine [From SEROQUEL] AdvReac Intermediate FACIAL Verified 06/23/21 08:15 SWELLING aspirin [ASPIRIN] AdvReac Mild Stomach Verified 06/23/21 08:15 Upset Ibuprofen Allergy Unknown stomach Uncoded 01/30/21 10:12 ache IV contrast Allergy Unknown Unknown Uncoded 01/30/21 10:12 Motrin Allergy Unknown stomach Uncoded 01/30/21 10:12 pain Assessment & Plan Assessment & Plan (1) Alcohol use disorder, moderate, in controlled environment: Status: Acute Code(s): F10.20 - Alcohol dependence, uncomplicated Assessment and Plan: liver enzymes high but trending down (2) Opioid use disorder: Status: Acute Code(s): F11.99 - Opioid use, unspecified with unspecified opioid-induced disorder (3) MDD (major depressive disorder), recurrent, severe, with psychosis: Status: Acute Code(s): F33.3 - Major depressive disorder, recurrent, severe with psychotic symptoms Plan Jerson is a 51 y.o. Male who carries a dx of schizoaffective DO, depressive type and opioid use disorder, mild alcohol use disorder. He presented to [facility] [place] on 07/05/21 due to complaining of command AH telling him to cut his throat and panic attacks. Pt has been non-adherent with medications and has hx of multiple inpatient psych admissions, last at [facility] M5 in 11/2020. While in the ED, patient noted to have rhabdomyolysis, transaminitis, and NAOMI. [place] [facility] [place] Utox was positive for opiates, fentanyl, and cocaine. Plan: Per records, pt?s most recent OP med regimen was fluphenazine 5 mg QHS, remeron 15 mg QHS, amitriptyline 125 mg QHS, ambien 10 mg QHS PRN, melatonin 10 mg QHS, cogentin 1 mg BID, clonidine 0.1 mg BID, atenolol 25 mg QAM, vistaril 50 mg QID PRN, and benadryl 50 mg QHS. However, pt has been non-adherent. Will re- start clonidine 0.1 mg BID and defer further med changes for tomorrow with primary psych team. 07/10: Reviewed with pt prev medications he was discharged on in Nov 2020 on M5 and pt is agreeable to restarting these. Will re-start klonopin for anxiety/agitation, abilify for AH and depression, and remeron for depression. Pt does not want to restart prolixin at this time. Will recheck liver enzymes, CMP. 07/11 increase abilify to 10mg po daily for AH. switch clonazepam for ativan for fast sleep onset- but also discussed with pt that he will not be discharged with rx for controlled substances given risk of abuse/misuse as he continues to work on recovery. continue clonidine 0.1mg po qhs, remeron increase to 15mg po qhs. Pt reports he wants to go to [facility], does have bedroom that he rents and may have to return there is no bed open at [facility]. 07/12- will d/c mag oxide due to nausea, recheck mag and cmp. continue abilify 10mg po daily- increase as neededto target AH. Pt no longer interested in referral for [facility]. Planned d/c on 07/17/21. 07/13 liver enzymes still high but trending down. continue current treatment plan 07/14 pt c/o chest pain. vitals stable no SOB, reporting some N& V. Admitting hx of drug use now. On clonidine and ativan. assessment r/o GERD vs cardiac involvement , r/o pericarditis which is common after covid, r/o withdrawal effects. encourage fluids. Labs ordered : CBC, Liver panel, EKG ordered, famotidine increased to 40 mg BID and reassess dose in 24 hours. I spent __25____ minutes with the patient and/or on the patient floor today, greater than?50% of which was spent counseling/coordinating care. Reason for contiued inpatient stay Substantial Risk for: harm to self, inability to function, rapid decompensation and med/psych decompensation
[2021-07-14 14:50] LABS: MANUAL DIFF FLAG NO
[2021-07-14 14:53] LABS: Basophils Percent Auto 0.4 % (0-2); Eosinophils Absolute Auto 0.1 X10*3/uL (0.0-0.4); Eosinophils Percent Auto 0.7 % (0-4); Hematocrit 39.6 % (42.0-52.0); Hemoglobin 12.6 g/dl (14.0-18.0); Imm Gran Abs Auto 0.02 X10*3/uL (0.00-0.03); Imm Gran Pct Auto 0.3 % (0.0-0.4); Lymphocytes Absolute Auto 2.2 X10*3/uL (1.2-4.9); Lymphocytes Percent Auto 32.2 % (20-40); Mean Corpuscular HGB Conc 31.8 g/dl (31.0-36.0); Mean Corpuscular Hemoglobin 29.3 pg (27.0-33.0); Mean Corpuscular Volume 92.1 fL (80.0-98.0); Mean Platelet Volume 9.1 fL (9.4-12.4); Monocytes Absolute Auto 0.4 X10*3/uL (0.1-1.2); Monocytes Percent Auto 6.2 % (2-11); Neutrophils Absolute Auto 4.1 x10*3/uL (2.0-8.3); Neutrophils Percent Auto 60.2 % (45-73); Platelet Count 284 X10*3/uL (160-400); Red Cell Distribution Width 15.6 % (11.0-16.0); White Blood Count 6.8 X10*3/uL (4.8-10.8)
[2021-07-14 15:30] LABS: Alanine Aminotransferase 134 U/L (0-40); Albumin Level 3.7 g/dL (3.5-5.0); Alkaline Phosphatase 69 U/L (39-117); Aspartate Amino Transferase 48 U/L (5-37); Bilirubin Direct 0.2 mg/dL (0.0-0.5); Bilirubin Total 0.4 mg/dL (0.0-1.0); Magnesium 2.4 mg/dL (1.6-2.6); Total Protein 7.1 g/dL (6.5-8.0)
[2021-07-14 20:16] VITALS: BP 116/69; PULSE 65; RESP 16; TEMP 36.7; O2SAT 98
[2021-07-14] MEDS: Mirtazapine 15 MG TABLET PO (20:21)
[2021-07-14] MEDS: Famotidine 20 MG TABLET 40 MG PO (20:21)
[2021-07-14] MEDS: Zolpidem Tartrate 5 MG TABLET PO (20:21)
[2021-07-14] MEDS: Acetaminophen 325 MG TABLET 650 MG PO (20:22)
[2021-07-15 08:20] VITALS: BP 134/73; PULSE 92; RESP 14; TEMP 36.8; O2SAT 97
[2021-07-15] MEDS: ARIPiprazole 10 MG TABLET PO (08:24)
[2021-07-15] MEDS: cloNIDine HCL 0.1 MG TABLET PO ×2 (08:24→20:16)
[2021-07-15] MEDS: Famotidine 20 MG TABLET 40 MG PO ×2 (08:24→20:15)
[2021-07-15] MEDS: Thiamine HCL 100 MG TABLET 50 MG PO (08:24)
[2021-07-15] MEDS: Folic Acid 1 MG TABLET PO (08:25)
[2021-07-15] MEDS: Ferrous Sulfate 324 MG TABLET.DR PO (08:25)
[2021-07-15] MEDS: LORazepam 1 MG TABLET PO ×2 (08:25→20:15)
[2021-07-15] MEDS: Acetaminophen 325 MG TABLET 650 MG PO ×2 (08:27→20:16)
--- NOTE | 2021-07-15 11:46 | P.PNPSI_ITS ---
Subjective Subjective Date of Service: 07/15/21 Reason For Visit: Si, Depression Subjective Notes: Conditional Voluntary Interim History: Pt reports bilat knee pain. He reports tylenol with minimal effect. He reports sleep is good. He reports feeling less anxious. He reports hearing voices but denies CAH. He denies SI/HI. He reports he plans to return to room he rents and he asks that he is reconnected with methadone clinic- consult for addiction services ordered. Pt reports poor appetite- asked for ensure tid- which was ordered. Medication Compliance: Yes Side effects from medications: No Attending Groups: No Review of Systems Review of Systems CVS: c/o chest pain, no palpitations, no SOB [employer]: No c/o dizziness, headache GI: c/o Nausea, one episode of unobsevered vomiting, no diarrhea, constipation Cardiovascular: Reports chest pain and Reports epigastric discomfort Gastrointestinal: Reports as per [facility] Mental Status Exam Mental Status Exam Narrative: A&O. Unkempt appearance, in hospital attire, in bed with covers over him. Poor eye contact, attentive. No Tics or Tremors. No abnormal involuntary movements. Calm, guarded. Non-pressured speech, spontaneous with regular rate and rhythm, quiet. Mood is ?irritable,? affect is dysphoric. Endorses passive SI. Denies SIB/HI upon inquiry. Thoughts are perseverative. No known cognitive or memory impairment. Insight/ Judgment poor. Diagnostics Vital Signs (24Hr): Vital Signs - 24 hr 07/14/21 20:16 07/15/21 08:20 Temperature 98.0 F 98.3 F Pulse Rate 65 92 Respiratory Rate 16 14 Blood Pressure 116/69 134/73 Pulse Oximetry 98 97 BMI result Body Mass Index 28.7 Labs Results: 07/14/21 14:43 07/12/21 12:25 Labs: Laboratory Results - last 48 hr 07/14/21 07/14/21 14:43 14:43 WBC 6.8 RBC 4.30 L Hgb 12.6 L Hct 39.6 L MCV 92.1 MCH 29.3 MCHC 31.8 RDW 15.6 Plt Count 284 D MPV 9.1 L Immature Gran % (Auto) 0.3 Neut % (Auto) 60.2 Lymph % (Auto) 32.2 [place] % (Auto) 6.2 Eos % (Auto) 0.7 Baso % (Auto) 0.4 Lymph # (Auto) 2.2 [place] # (Auto) 0.4 Eos # (Auto) 0.1 Baso # (Auto) 0.0 Abs Immat Gran (auto) 0.02 Absolute Neuts (auto) 4.1 Absolute Nucleated RBC 0.000 Nucleated RBC % (auto) 0.0 Magnesium 2.4 Total Bilirubin 0.4 Direct Bilirubin 0.2 AST 48 H ALT 134 H Alkaline Phosphatase 69 Total Protein 7.1 Albumin 3.7 Medications Medications Current Medications Acetaminophen (Acetaminophen 325 Mg Tablet) 650 mg PO Q6H PRN PRN Reason: Headache/Pain Mild Scale (1-3) Last Admin: 07/15/21 08:27 Dose: 650 mg Documented by: Al Hydroxide/Mg Hydroxide (Magnesium Hydrox/Alum Hydrox 30 Ml Oral.Susp) 30 ml PO Q6H PRN PRN Reason: Heartburn/Nausea Last Admin: 07/14/21 12:50 Dose: 30 ml Documented by: Bacitracin (Bacitracin Oint 14 Gm Tube) 1 appl TOPICAL BID [facility] Last Admin: 07/15/21 08:29 Dose: Not Given Documented by: Clonidine HCl (Clonidine Hcl 0.1 Mg Tablet) 0.1 mg PO BID [facility]; Protocol Last Admin: 07/15/21 08:24 Dose: 0.1 mg Documented by: Famotidine (Famotidine 20 Mg Tablet) 40 mg PO BID [facility] Last Admin: 07/15/21 08:24 Dose: 40 mg Documented by: Ferrous Sulfate (Ferrous Sulfate 324 Mg Tablet.) 324 mg PO DAILY [facility] Last Admin: 07/15/21 08:25 Dose: 324 mg Documented by: Folic Acid (Folic Acid 1 Mg Tablet) 1 mg PO DAILY [facility] Last Admin: 07/15/21 08:25 Dose: 1 mg Documented by: Hydroxyzine HCl (Hydroxyzine Hcl 25 Mg Tablet) 25 mg PO Q6H PRN PRN Reason: Anxiety Last Admin: 07/13/21 12:17 Dose: 25 mg Documented by: Lidocaine (Lidocaine 4 % Patch Adh..Patch) 1 patch TRANSDERMA DAILY [facility]; Protocol Last Admin: 07/15/21 08:29 Dose: Not Given Documented by: Loperamide HCl (Loperamide Hcl 2 Mg Capsule) 2 mg PO Q4H PRN PRN Reason: Loose Stool Last Admin: 07/12/21 09:55 Dose: 2 mg Documented by: Lorazepam (Lorazepam 1 Mg Tablet) 1 mg PO BID [facility] Last Admin: 07/15/21 08:25 Dose: 1 mg Documented by: Magnesium Hydroxide (Milk Of Magnesia 30 Ml Oral.Susp) 30 ml PO DAILY PRN PRN Reason: Constipation Melatonin (Melatonin 3 Mg Tablet) 6 mg PO BEDTIME PRN PRN Reason: Insomnia Last Admin: 07/09/21 21:09 Dose: 6 mg Documented by: Mirtazapine (Mirtazapine 15 Mg Tablet) 15 mg PO BEDTIME [facility] Last Admin: 07/14/21 20:21 Dose: 15 mg Documented by: Ondansetron HCl (Ondansetron Odt 8 Mg Tab.Rapdis) 8 mg TRANSLINGU Q8H PRN PRN Reason: nausea Last Admin: 07/14/21 09:15 Dose: 8 mg Documented by: Paliperidone (Paliperidone Er 6 Mg Tab.Er.24) 6 mg PO DAILY [facility] Senna (Sennosides 8.6 Mg Tablet) 17.2 mg PO BEDTIME PRN PRN Reason: Constipation Thiamine HCl (Thiamine Hcl 100 Mg Tablet) 50 mg PO DAILY [facility] Last Admin: 07/15/21 08:24 Dose: 50 mg Documented by: Zolpidem Tartrate (Zolpidem Tartrate 5 Mg Tablet) 5 mg PO BEDTIME PRN PRN Reason: Insomnia Last Admin: 07/14/21 20:21 Dose: 5 mg Documented by: Allergies Allergies Allergy/AdvReac Type Severity Reaction Status Date / Time trazodone [TRAZODONE] Allergy Severe FACIAL Verified 06/23/21 08:15 SWELLING, swelling cat dander [CATS] Allergy Intermediate FACIAL Verified 06/23/21 08:15 ITCHING doxepin [DOXEPIN] Allergy Intermediate WEIGHT Verified 06/23/21 08:15 GAIN/LEG SWELLING Iodinated Contrast Media Allergy Intermediate ITCHING Verified 06/23/21 08:15 [IV DYE, IODINE CONTAINING CONTRAST ] nitroglycerin [NITROGLYCERIN] Allergy Unknown UNKNOWN Verified 06/23/21 08:15 tramadol [TRAMADOL] Allergy Unknown UNKNOWN, Verified 06/23/21 08:15 dry mouth ibuprofen [From MOTRIN] AdvReac Intermediate GI UPSET Verified 06/23/21 08:15 quetiapine [From SEROQUEL] AdvReac Intermediate FACIAL Verified 06/23/21 08:15 SWELLING aspirin [ASPIRIN] AdvReac Mild Stomach Verified 06/23/21 08:15 Upset Ibuprofen Allergy Unknown stomach Uncoded 01/30/21 10:12 ache IV contrast Allergy Unknown Unknown Uncoded 01/30/21 10:12 Motrin Allergy Unknown stomach Uncoded 01/30/21 10:12 pain Assessment & Plan Assessment & Plan (1) Alcohol use disorder, moderate, in controlled environment: Status: Acute Code(s): F10.20 - Alcohol dependence, uncomplicated Assessment and Plan: liver enzymes high but trending down (2) Opioid use disorder: Status: Acute Code(s): F11.99 - Opioid use, unspecified with unspecified opioid-induced disorder (3) MDD (major depressive disorder), recurrent, severe, with psychosis: Status: Acute Code(s): F33.3 - Major depressive disorder, recurrent, severe with psychotic symptoms Plan Jerson is a 51 y.o. Male who carries a dx of schizoaffective DO, depressive type and opioid use disorder, mild alcohol use disorder. [place] [facility] [place] due to complaining of command AH telling him to cut his throat and panic attacks. Pt has been non-adherent with medications and has hx of multiple inpatient psych admissions, last at [facility] [place]. While in the ED, patient noted to have rhabdomyolysis, transaminitis, and NAOMI. [place] [facility] [place]. Utox was positive for opiates, fentanyl, and cocaine. Plan: Per records, pt?s most recent OP med regimen was fluphenazine 5 mg QHS, remeron 15 mg QHS, amitriptyline 125 mg QHS, ambien 10 mg QHS PRN, melatonin 10 mg QHS, cogentin 1 mg BID, clonidine 0.1 mg BID, atenolol 25 mg QAM, vistaril 50 mg QID PRN, and benadryl 50 mg QHS. However, pt has been non-adherent. Will re- start clonidine 0.1 mg BID and defer further med changes for tomorrow with primary psych team. 07/10: Reviewed with pt prev medications he was discharged on in Nov 2020 on M5 and pt is agreeable to restarting these. Will re-start klonopin for anxiety/agitation, abilify for AH and depression, and remeron for depression. Pt does not want to restart prolixin at this time. Will recheck liver enzymes, CMP. 07/11 increase abilify to 10mg po daily for AH. switch clonazepam for ativan for fast sleep onset- but also discussed with pt that he will not be discharged with rx for controlled substances given risk of abuse/misuse as he continues to work on recovery. continue clonidine 0.1mg po qhs, remeron increase to 15mg po qhs. Pt reports he wants to go to [facility], does have bedroom that he rents and may have to return there is no bed open at [facility]. 07/12- will d/c mag oxide due to nausea, recheck mag and cmp. continue abilify 10mg po daily- increase as needed to target AH. Pt no longer interested in referral for [facility]. Planned d/c on 07/17/21. 07/13 liver enzymes still high but trending down. continue current treatment plan 07/14 pt c/o chest pain. vitals stable no SOB, reporting some N& V. Admitting hx of drug use now. On clonidine and ativan. assessment r/o GERD vs cardiac involvement , r/o pericarditis which is common after covid, r/o withdrawal effects. encourage fluids. Labs ordered : CBC, Liver panel, EKG ordered, famotidine increased to 40 mg BID and reassess dose in 24 hours. 07/15- switch abilify to paliperidone for AH. ensure as pt reports poor appetite. capsin for knee pain. d/c on 07/17/21. consult to addiction service as pt wants to be reconnected with methadone clinic. I spent minutes with the patient and/or on the patient floor today, greater than?50% of which was spent counseling/coordinating care. Reason for contiued inpatient stay Substantial Risk for: harm to self
[2021-07-15] MEDS: Paliperidone ER 6 MG TAB.ER.24 PO (12:36)
--- NOTE | 2021-07-15 15:44 | HO.ADDICTCON ---
History of Present Illness Date of Service: 07/15/2021 Chief Complaint: Si, Depression Reason for Consult: Patient requesting methadone start Requesting physician: Ira Funk Discussed with referring provider: Yes Sources of Information: patient interviewed and chart reviewed HPI Narrative: Patient is a 51-year-old Turkmen-speaking male with diagnoses of schizoaffective disorder, currently psychiatrically admitted. Patient also with history of alcohol in opioid use. Requesting today to be started on methadone. Of note patient has been at [facility] for more than 10 days, today is the 1st day that he has requested medications for opioid use disorder. Chart review shows that patient was seen by recovery support team while he was on the medical floor, at that time patient denied any substance use and decline any services. Patient seen today by this documentation writer in room 308. He was awake, alert and engaged in interview. Challenging to obtain history from patient as he often responded in generalized terms--for instance when asked amount of current use he repeatedly responded with ?a lot, a lot?. Unable to report any amount. Denies any history of alcohol use despite clear documentation to the contrary. This documentation writer inquired about patient's current motivation for starting methadone, patient reports that he has been on in the past and that it was helpful. When asked what dose he had been on in the past he replied 18 mg. Unable to recall when he was last on methadone. Reported that he was previously a patient of [facility]. Reporting nausea, chills, and body aches. Of note patient was eating lunch when seen by this documentation writer. Recovery support nurse called [facility] to verify patient's admission there, they reported patient has never been seen there. This documentation writer then discussed again with patient who responded that he was actually at [facility] and he received methadone there. Does not appear that he has actually ever been on methadone outpatient. Of note patient has been admitted several times to [facility] and has only been administered methadone once over a year ago at a low dose (30 mg daily). Past Psychiatric History: -Pt psychiatrist is Dr. Bud Da Silva and he has OP services at [facility] -Hx of multiple psych inpatient admissions since 2011. Hx of CCS, ATS. -Past med trials: trazodone (facial swelling), doxepin (leg swelling), quetiapine (facial swelling), clonidine, amitriptyline, prolixin, remeron. Review of Systems Constitutional: Reports as per HPI Diagnostics Vital Signs (24Hr): Vital Signs - 24 hr 07/14/21 20:16 07/15/21 08:20 Temperature 98.0 F 98.3 F Pulse Rate 65 92 Respiratory Rate 16 14 Blood Pressure 116/69 134/73 Pulse Oximetry 98 97 BMI result Body Mass Index 28.7 Labs Results: 07/14/21 14:43 07/12/21 12:25 Labs: Laboratory Results - last 48 hr 07/14/21 07/14/21 14:43 14:43 WBC 6.8 RBC 4.30 L Hgb 12.6 L Hct 39.6 L MCV 92.1 MCH 29.3 MCHC 31.8 RDW 15.6 Plt Count 284 D MPV 9.1 L Immature Gran % (Auto) 0.3 Neut % (Auto) 60.2 Lymph % (Auto) 32.2 [place] % (Auto) 6.2 Eos % (Auto) 0.7 Baso % (Auto) 0.4 Lymph # (Auto) 2.2 [place] # (Auto) 0.4 Eos # (Auto) 0.1 Baso # (Auto) 0.0 Abs Immat Gran (auto) 0.02 Absolute Neuts (auto) 4.1 Absolute Nucleated RBC 0.000 Nucleated RBC % (auto) 0.0 Magnesium 2.4 Total Bilirubin 0.4 Direct Bilirubin 0.2 AST 48 H ALT 134 H Alkaline Phosphatase 69 Total Protein 7.1 Albumin 3.7 Mental Status Exam Mental Status Exam Patient Appearance: Appropriate Level of Consciousness: Awake and Appropriate Affect Description: Calm Thought Content: positive for Circumstantial Judgement: Fair Medications Medications Current Medications Acetaminophen (Acetaminophen 325 Mg Tablet) 650 mg PO Q6H PRN PRN Reason: Headache/Pain Mild Scale (1-3) Last Admin: 07/15/21 08:27 Dose: 650 mg Documented by: Al Hydroxide/Mg Hydroxide (Magnesium Hydrox/Alum Hydrox 30 Ml Oral.Susp) 30 ml PO Q6H PRN PRN Reason: Heartburn/Nausea Last Admin: 07/14/21 12:50 Dose: 30 ml Documented by: Bacitracin (Bacitracin Oint 14 Gm Tube) 1 appl TOPICAL BID [facility] Last Admin: 07/15/21 08:29 Dose: Not Given Documented by: Capsaicin (Capsaicin 0.025% Cream 60 Gm Tube) 1 appl TOPICAL TID [facility]; Protocol Clonidine HCl (Clonidine Hcl 0.1 Mg Tablet) 0.1 mg PO BID [facility]; Protocol Last Admin: 07/15/21 08:24 Dose: 0.1 mg Documented by: Famotidine (Famotidine 20 Mg Tablet) 40 mg PO BID [facility] Last Admin: 07/15/21 08:24 Dose: 40 mg Documented by: Ferrous Sulfate (Ferrous Sulfate 324 Mg Tablet.Dr) 324 mg PO DAILY [facility] Last Admin: 07/15/21 08:25 Dose: 324 mg Documented by: Folic Acid (Folic Acid 1 Mg Tablet) 1 mg PO DAILY [facility] Last Admin: 07/15/21 08:25 Dose: 1 mg Documented by: Hydroxyzine HCl (Hydroxyzine Hcl 25 Mg Tablet) 25 mg PO Q6H PRN PRN Reason: Anxiety Last Admin: 07/13/21 12:17 Dose: 25 mg Documented by: Lidocaine (Lidocaine 4 % Patch Adh..Patch) 1 patch TRANSDERMA DAILY [facility]; Protocol Last Admin: 07/15/21 08:29 Dose: Not Given Documented by: Loperamide HCl (Loperamide Hcl 2 Mg Capsule) 2 mg PO Q4H PRN PRN Reason: Loose Stool Last Admin: 07/12/21 09:55 Dose: 2 mg Documented by: Lorazepam (Lorazepam 1 Mg Tablet) 1 mg PO BID [facility] Last Admin: 07/15/21 08:25 Dose: 1 mg Documented by: Magnesium Hydroxide (Milk Of Magnesia 30 Ml Oral.Susp) 30 ml PO DAILY PRN PRN Reason: Constipation Melatonin (Melatonin 3 Mg Tablet) 6 mg PO BEDTIME PRN PRN Reason: Insomnia Last Admin: 07/09/21 21:09 Dose: 6 mg Documented by: Mirtazapine (Mirtazapine 15 Mg Tablet) 15 mg PO BEDTIME [facility] Last Admin: 07/14/21 20:21 Dose: 15 mg Documented by: Ondansetron HCl (Ondansetron Odt 8 Mg Tab.Rapdis) 8 mg TRANSLINGU Q8H PRN PRN Reason: nausea Last Admin: 07/14/21 09:15 Dose: 8 mg Documented by: Paliperidone (Paliperidone Er 6 Mg Tab.Er.24) 6 mg PO DAILY [facility] Last Admin: 07/15/21 12:36 Dose: 6 mg Documented by: Senna (Sennosides 8.6 Mg Tablet) 17.2 mg PO BEDTIME PRN PRN Reason: Constipation Thiamine HCl (Thiamine Hcl 100 Mg Tablet) 50 mg PO DAILY [facility] Last Admin: 07/15/21 08:24 Dose: 50 mg Documented by: Zolpidem Tartrate (Zolpidem Tartrate 5 Mg Tablet) 5 mg PO BEDTIME PRN PRN Reason: Insomnia Last Admin: 07/14/21 20:21 Dose: 5 mg Documented by: Allergies Allergies Allergy/AdvReac Type Severity Reaction Status Date / Time trazodone [TRAZODONE] Allergy Severe FACIAL Verified 06/23/21 08:15 SWELLING, swelling cat dander [CATS] Allergy Intermediate FACIAL Verified 06/23/21 08:15 ITCHING doxepin [DOXEPIN] Allergy Intermediate WEIGHT Verified 06/23/21 08:15 GAIN/LEG SWELLING Iodinated Contrast Media Allergy Intermediate ITCHING Verified 06/23/21 08:15 [IV DYE, IODINE CONTAINING CONTRAST ] nitroglycerin [NITROGLYCERIN] Allergy Unknown UNKNOWN Verified 06/23/21 08:15 tramadol [TRAMADOL] Allergy Unknown UNKNOWN, Verified 06/23/21 08:15 dry mouth ibuprofen [From MOTRIN] AdvReac Intermediate GI UPSET Verified 06/23/21 08:15 quetiapine [From SEROQUEL] AdvReac Intermediate FACIAL Verified 06/23/21 08:15 SWELLING aspirin [ASPIRIN] AdvReac Mild Stomach Verified 06/23/21 08:15 Upset Ibuprofen Allergy Unknown stomach Uncoded 01/30/21 10:12 ache IV contrast Allergy Unknown Unknown Uncoded 01/30/21 10:12 Motrin Allergy Unknown stomach Uncoded 01/30/21 10:12 pain Assessment & Plan Assessment & Plan (1) Schizoaffective disorder, depressive type: Status: Acute Code(s): F25.1 - Schizoaffective disorder, depressive type Assessment and Plan: Methadone not appropriate to start at this time. Unable to assess patient's opioid use, history of opioid use. Unable to assess treatment history. Does not appear that at any time during his admission was here experiencing any opioid withdrawals. Discussed with attending provider. Discussed with patient. Patient understanding and agreeable. Naltrexone may be an option for this patient given the amount of time that he has been in the hospital and without opioids. May also be helpful in terms of his reported alcohol use. I spent ____45__ minutes with the patient and/or on the patient floor today, greater than?50% of which was spent counseling/coordinating care. [facility] Past Medical History Medical History Alcohol dependence Anxiety Chest pain Derangement of symphysis pubis Dysphagia GERD (gastroesophageal reflux disease) Major depressive disorder, recurrent severe without psychotic features Opioid abuse Weight loss Family History Family History Father HTN (hypertension) Diabetes Mother HTN (hypertension) Stroke Alzheimer disease Heart disease Surgical History Surgical History H/O umbilical hernia repair History of colonoscopy History of cystoscopy Social History Social History Household Members: Other Housing: Homeless Do you presently have visiting nurse or other home services: No Alcohol intake: never Patient Tobacco Use Status: Current everyday Tobacco user Tobacco use type: Cigarette Cigarette Packs Per Day: 1 Cigarettes Per Day: 20.0 Years Smoked: 9 Smoked in Last 30 Days: Yes e-Cigarette/Vaping Use: Never Used Patient Interested in Nicotine Replacement: No Second Hand Smoke Exposure: No Use of substances other than those prescribed or required for medical reasons: Yes Substance Use Type: Crack/Cocaine and Opiates Substance Use Type Other:: fentanyl Last Used Substance Other:: patient is denying any substance use Currently Displaying Signs/Symptoms of Drug Intoxication Withdrawal: No Any prior treatment program specific to substance use: Yes Have you been hit, kicked, punched, or otherwise hurt by someone within the past year? If so, by whom?: No Do you feel safe in your current relationship?: No Current Relationship Is there a partner from a previous relationship who is making you feel unsafe now?: No Are you made to feel afraid or neglected: No Spiritual Healthcare Practices: none identified Roman Catholic Healthcare Practices: none identified Cultural Healthcare Practices: none identified Advance Directives: No Advance Directives Information Provided: Yes Advance Directives Date on File: 02/24/20 Do you have thoughts of harming others: None Do you have a plan to hurt others: No Plan Recently lost weight without trying: No How much weight loss: Not applicable Eating poorly because of decreased appetite: No Nutrition screen score: 0 Nutrition Risks: No Nutritional Risk Poor oral hygiene: Yes service: No Current occupational status: unemployed and disabled Sexual orientation: Questioning
[2021-07-15] MEDS: Capsaicin 0.025% Cream 60 GM TUBE 1 APPL TOPICAL ×2 (16:28→20:20)
[2021-07-15 20:09] VITALS: BP 108/64; PULSE 70; RESP 18; TEMP 36.3; O2SAT 99
[2021-07-15] MEDS: Mirtazapine 15 MG TABLET PO (20:15)
[2021-07-15] MEDS: Zolpidem Tartrate 5 MG TABLET PO (20:16)
[2021-07-15] MEDS: Ondansetron ODT 8 MG TAB.RAPDIS TRANSLINGU ×2 (20:16→23:29)
[2021-07-16 06:00] VITALS: BP 117/68; PULSE 80; RESP 16; TEMP 36.8; O2SAT 98
[2021-07-16] MEDS: Paliperidone ER 6 MG TAB.ER.24 PO (09:05)
[2021-07-16] MEDS: Famotidine 20 MG TABLET 40 MG PO ×2 (09:05→20:25)
[2021-07-16] MEDS: LORazepam 1 MG TABLET PO ×2 (09:05→20:25)
[2021-07-16] MEDS: Folic Acid 1 MG TABLET PO (09:05)
[2021-07-16] MEDS: Ferrous Sulfate 324 MG TABLET.DR PO (09:05)
[2021-07-16] MEDS: cloNIDine HCL 0.1 MG TABLET PO ×2 (09:05→20:25)
[2021-07-16] MEDS: Thiamine HCL 100 MG TABLET 50 MG PO (09:05)
[2021-07-16] MEDS: Capsaicin 0.025% Cream 60 GM TUBE 1 APPL TOPICAL (09:06)
[2021-07-16] MEDS: Bacitracin Oint 14 GM TUBE 1 APPL TOPICAL (09:06)
[2021-07-16] MEDS: Acetaminophen 325 MG TABLET 650 MG PO ×2 (09:14→20:39)
[2021-07-16] MEDS: Lidocaine 4 % Patch ADH..PATCH 1 PATCH TRANSDERMA (09:19)
[2021-07-16 11:47] LABS: Ammonia 37 umol/L (13-55)
[2021-07-16 11:56] LABS: Alanine Aminotransferase 80 U/L (0-40); Albumin Level 3.6 g/dL (3.5-5.0); Alkaline Phosphatase 64 U/L (39-117); Anion Gap 14 (12-20); Aspartate Amino Transferase 32 U/L (5-37); Bilirubin Total 0.4 mg/dL (0.0-1.0); Blood Urea Nitrogen 7 mg/dL (9-16); Calcium 9.3 mg/dL (8.4-10.2); Carbon Dioxide 22 mmol/L (22-29); Chloride 105 mmol/L (96-108); Creatinine Clr Calc Pharmacy 90.6; Estimated Glomerular Filt Rate > 60; Glucose Random 110 mg/dL (60-115); Potassium 4.5 mmol/L (3.3-5.1); Sodium 136 mmol/L (135-145); Total Protein 6.9 g/dL (6.5-8.0)
--- NOTE | 2021-07-16 13:27 | HO.PSYCHPN ---
Subjective Subjective Date of Service: 07/16/21 Reason For Visit: Si, Depression Subjective Notes: Conditional Voluntary Interim History: Pt reports he was up for some part of the night. he reports feeling lonely. He reports like he has no supports. He reports less AH. He denies SI/HI. He continues to report that he will return to apartment where he is renting room. He declines referral for CSS. Pt mostly in room. At times seems confused. 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 Unkempt appearance, in hospital attire, in bed with covers over him. Poor eye contact, attentive. No Tics or Tremors. No abnormal involuntary movements. Calm, guarded. Non-pressured speech, spontaneous with regular rate and rhythm, quiet. Mood is ?okay,? affect is dysphoric. denies SI. Denies SIB/HI upon inquiry. Thoughts are perseverative. Insight/ Judgment poor. Diagnostics Vital Signs (24Hr): Vital Signs - 24 hr 07/15/21 20:09 07/16/21 06:00 Temperature 97.3 F 98.3 F Pulse Rate 70 80 Respiratory Rate 18 16 Blood Pressure 108/64 117/68 Pulse Oximetry 99 98 BMI result Body Mass Index 28.7 Labs Results: 07/14/21 14:43 07/16/21 11:33 Labs: Laboratory Results - last 48 hr 07/14/21 07/16/21 07/16/21 14:43 11:33 11:33 Sodium 136 Potassium 4.5 Chloride 105 Carbon Dioxide 22 Anion Gap 14 BUN 7 L Creatinine 0.94 Estim Creat Clear Calc 90.6 Estimated GFR > 60 Random Glucose 110 Calcium 9.3 Magnesium 2.4 Total Bilirubin 0.4 0.4 Direct Bilirubin 0.2 AST 48 H 32 ALT 134 H 80 H Alkaline Phosphatase 69 64 Ammonia 37 Total Protein 7.1 6.9 Albumin 3.7 3.6 Medications Medications Current Medications Acetaminophen (Acetaminophen 325 Mg Tablet) 650 mg PO Q6H PRN PRN Reason: Headache/Pain Mild Scale (1-3) Last Admin: 07/16/21 09:14 Dose: 650 mg Documented by: Al Hydroxide/Mg Hydroxide (Magnesium Hydrox/Alum Hydrox 30 Ml Oral.Susp) 30 ml PO Q6H PRN PRN Reason: Heartburn/Nausea Last Admin: 07/16/21 14:41 Dose: 30 ml Documented by: Bacitracin (Bacitracin Oint 14 Gm Tube) 1 appl TOPICAL BID [facility] Last Admin: 07/16/21 09:06 Dose: 1 appl Documented by: Capsaicin (Capsaicin 0.025% Cream 60 Gm Tube) 1 appl TOPICAL TID [facility]; Protocol Last Admin: 07/16/21 14:32 Dose: Not Given Documented by: Clonidine HCl (Clonidine Hcl 0.1 Mg Tablet) 0.1 mg PO BID [facility]; Protocol Last Admin: 07/16/21 09:05 Dose: 0.1 mg Documented by: Famotidine (Famotidine 20 Mg Tablet) 40 mg PO BID [facility] Last Admin: 07/16/21 09:05 Dose: 40 mg Documented by: Ferrous Sulfate (Ferrous Sulfate 324 Mg Tablet.Dr) 324 mg PO DAILY [facility] Last Admin: 07/16/21 09:05 Dose: 324 mg Documented by: Folic Acid (Folic Acid 1 Mg Tablet) 1 mg PO DAILY [facility] Last Admin: 07/16/21 09:05 Dose: 1 mg Documented by: Hydroxyzine HCl (Hydroxyzine Hcl 25 Mg Tablet) 25 mg PO Q6H PRN PRN Reason: Anxiety Last Admin: 07/13/21 12:17 Dose: 25 mg Documented by: Lidocaine (Lidocaine 4 % Patch Adh..Patch) 1 patch TRANSDERMA DAILY [facility]; Protocol Last Admin: 07/16/21 09:19 Dose: 1 patch Documented by: Loperamide HCl (Loperamide Hcl 2 Mg Capsule) 2 mg PO Q4H PRN PRN Reason: Loose Stool Last Admin: 07/12/21 09:55 Dose: 2 mg Documented by: Lorazepam (Lorazepam 1 Mg Tablet) 1 mg PO BID [facility] Last Admin: 07/16/21 09:05 Dose: 1 mg Documented by: Magnesium Hydroxide (Milk Of Magnesia 30 Ml Oral.Susp) 30 ml PO DAILY PRN PRN Reason: Constipation Melatonin (Melatonin 3 Mg Tablet) 6 mg PO BEDTIME PRN PRN Reason: Insomnia Last Admin: 07/09/21 21:09 Dose: 6 mg Documented by: Mirtazapine (Mirtazapine 15 Mg Tablet) 15 mg PO BEDTIME [facility] Last Admin: 07/15/21 20:15 Dose: 15 mg Documented by: Ondansetron HCl (Ondansetron Odt 8 Mg Tab.Rapdis) 8 mg TRANSLINGU Q8H PRN PRN Reason: nausea Last Admin: 07/16/21 13:54 Dose: 8 mg Documented by: Paliperidone (Paliperidone Er 6 Mg Tab.Er.24) 6 mg PO DAILY [facility] Last Admin: 07/16/21 09:05 Dose: 6 mg Documented by: Senna (Sennosides 8.6 Mg Tablet) 17.2 mg PO BEDTIME PRN PRN Reason: Constipation Thiamine HCl (Thiamine Hcl 100 Mg Tablet) 50 mg PO DAILY [facility] Last Admin: 07/16/21 09:05 Dose: 50 mg Documented by: Zolpidem Tartrate (Zolpidem Tartrate 5 Mg Tablet) 5 mg PO BEDTIME PRN PRN Reason: Insomnia Last Admin: 07/15/21 20:16 Dose: 5 mg Documented by: Allergies Allergies Allergy/AdvReac Type Severity Reaction Status Date / Time trazodone [TRAZODONE] Allergy Severe FACIAL Verified 06/23/21 08:15 SWELLING, swelling cat dander [CATS] Allergy Intermediate FACIAL Verified 06/23/21 08:15 ITCHING doxepin [DOXEPIN] Allergy Intermediate WEIGHT Verified 06/23/21 08:15 GAIN/LEG SWELLING Iodinated Contrast Media Allergy Intermediate ITCHING Verified 06/23/21 08:15 [IV DYE, IODINE CONTAINING CONTRAST ] nitroglycerin [NITROGLYCERIN] Allergy Unknown UNKNOWN Verified 06/23/21 08:15 tramadol [TRAMADOL] Allergy Unknown UNKNOWN, Verified 06/23/21 08:15 dry mouth ibuprofen [From MOTRIN] AdvReac Intermediate GI UPSET Verified 06/23/21 08:15 quetiapine [From SEROQUEL] AdvReac Intermediate FACIAL Verified 06/23/21 08:15 SWELLING aspirin [ASPIRIN] AdvReac Mild Stomach Verified 06/23/21 08:15 Upset Ibuprofen Allergy Unknown stomach Uncoded 01/30/21 10:12 ache IV contrast Allergy Unknown Unknown Uncoded 01/30/21 10:12 Motrin Allergy Unknown stomach Uncoded 01/30/21 10:12 pain Assessment & Plan Assessment & Plan (1) Schizoaffective disorder, depressive type: Status: Acute Code(s): F25.1 - Schizoaffective disorder, depressive type Assessment and Plan: Methadone not appropriate to start at this time. Unable to assess patient's opioid use, history of opioid use. Unable to assess treatment history. Does not appear that at any time during his admission was here experiencing any opioid withdrawals. Discussed with attending provider. Discussed with patient. Patient understanding and agreeable. Naltrexone may be an option for this patient given the amount of time that he has been in the hospital and without opioids. May also be helpful in terms of his reported alcohol use. Beverly Arthur is a 51 y.o. Male who carries a dx of schizoaffective DO, depressive type and opioid use disorder, mild alcohol use disorder. [place] [facility] due to complaining of command AH telling him to cut his throat and panic attacks. Pt has been non-adherent with medications and has hx of multiple inpatient psych admissions, last at [facility] in [place]. While in the ED, patient noted to have rhabdomyolysis, transaminitis, and NAOMI. He was admitted to [facility] for further management. Utox was positive for opiates, fentanyl, and cocaine. Plan: Per records, pt?s most recent OP med regimen was fluphenazine 5 mg QHS, remeron 15 mg QHS, amitriptyline 125 mg QHS, ambien 10 mg QHS PRN, melatonin 10 mg QHS, cogentin 1 mg BID, clonidine 0.1 mg BID, atenolol 25 mg QAM, vistaril 50 mg QID PRN, and benadryl 50 mg QHS. However, pt has been non-adherent. Will re-start clonidine 0.1 mg BID and defer further med changes for tomorrow with primary psych team. 07/10: Reviewed with pt prev medications he was discharged on in Nov 2020 on M5 and pt is agreeable to restarting these. Will re-start klonopin for anxiety/agitation, abilify for AH and depression, and remeron for depression. Pt does not want to restart prolixin at this time. Will recheck liver enzymes, CMP. 4/7 increase abilify to 10mg po daily for AH. switch clonazepam for ativan for fast sleep onset- but also discussed with pt that he will not be discharged with rx for controlled substances given risk of abuse/misuse as he continues to work on recovery. continue clonidine 0.1mg po qhs, remeron increase to 15mg po qhs.? Pt reports he wants to go to [facility], does have bedroom that he rents and may have to return there is no bed open at [facility]. 07/12- will d/c mag oxide due to nausea, recheck mag and cmp. continue abilify 10mg po daily- increase as needed to target AH. Pt no longer interested in referral for [facility]. Planned d/c on 07/17/21. 07/13 liver enzymes still high but trending down. continue current treatment plan 07/14 pt c/o chest pain. vitals stable no SOB, reporting some N& V. Admitting hx of drug use now. On clonidine and ativan.? . 07/15- switch abilify to paliperidone for AH. ensure as pt reports poor appetite. capsin for knee pain. d/c on 07/17/21. consult to addiction service as pt wants to be reconnected with methadone clinic. 07/16 less AH, chronic somatic complaints which have been followed by GI including dysphasia, nausea, abdominal distension s/s to achalasia. chest pain also chronic not cardiac etiology. pt to continue OP psych tx. I spent minutes with the patient and/or on the patient floor today, greater than?50% of which was spent counseling/coordinating care. Reason for contiued inpatient stay Substantial Risk for: stable for discharge
[2021-07-16] MEDS: Ondansetron ODT 8 MG TAB.RAPDIS TRANSLINGU (13:54)
[2021-07-16] MEDS: Magnesium Hydrox/Alum Hydrox 30 ML ORAL.SUSP PO (14:41)
[2021-07-16] MEDS: Loperamide HCl 2 MG CAPSULE PO (17:17)
[2021-07-16 20:00] VITALS: BP 113/59; PULSE 71; RESP 16; TEMP 36.9; O2SAT 98
[2021-07-16] MEDS: Mirtazapine 15 MG TABLET PO (20:25)
[2021-07-16] MEDS: Zolpidem Tartrate 5 MG TABLET PO (20:39)
[2021-07-17] MEDS: Acetaminophen 325 MG TABLET 650 MG PO (04:07)
[2021-07-17] MEDS: Paliperidone ER 6 MG TAB.ER.24 PO (08:27)
[2021-07-17] MEDS: Famotidine 20 MG TABLET 40 MG PO (08:27)
[2021-07-17] MEDS: Ferrous Sulfate 324 MG TABLET.DR PO (08:27)
[2021-07-17] MEDS: Thiamine HCL 100 MG TABLET 50 MG PO (08:27)
[2021-07-17] MEDS: Folic Acid 1 MG TABLET PO (08:27)
[2021-07-17] MEDS: LORazepam 1 MG TABLET PO (08:27)
[2021-07-17] MEDS: cloNIDine HCL 0.1 MG TABLET PO (08:27)
[2021-07-17] MEDS: Capsaicin 0.025% Cream 60 GM TUBE 1 APPL TOPICAL (08:30)
[2021-07-17] MEDS: Ondansetron ODT 8 MG TAB.RAPDIS TRANSLINGU (08:33)
--- NOTE | 2021-07-17 08:59 | P.DS_ITS ---
DS: Providers Provider Date of Service: 07/17/21 Date of admission: 07/09/21 18:46 Primary care physician: Gretchen Turcios MD Consults: 07/15/21 11:44 Addiction Medicine Routine Consulting Provider: Meghan Stewart Reason for consultation: wants to start methadone Has provider been notified: Yes DS: Diagnosis Discharge Diagnosis (1) Schizoaffective disorder, depressive type: Status: Acute DS: Medications Discharge Medications Home Medications: Previous Rx's Medication Instructions Recorded capsaicin 0.025 % topical cream 1 appl TOPICAL TID #25 g 07/17/21 clonidine HCl 0.1 mg tablet 0.1 mg PO BID #60 tab 07/17/21 famotidine 20 mg tablet 20 mg PO BID #60 tab 07/17/21 ferrous sulfate 324 mg (65 mg 324 mg PO DAILY #30 tab 07/17/21 iron) tablet,delayed release lidocaine 4 % topical patch 1 patch TRANSDERMAL DAILY #10 ea 07/17/21 (Lidocaine Pain Relief) mirtazapine 15 mg tablet 15 mg PO BEDTIME #30 tab 07/17/21 ondansetron 4 mg disintegrating 1 tab PO Q8H PRN #60 tab 07/17/21 tablet paliperidone 6 mg tablet,extended 6 mg PO DAILY #30 tab 07/17/21 release 24 hr (Invega) tamsulosin 0.4 mg capsule (Flomax) 0.4 mg PO BEDTIME #30 cap 07/17/21 Mental Status Exam Mental Status Exam Narrative: A&O. Casually groomed, fair hygiene, in NAD. Fair eye contact, attentive. No Tics or Tremors. No abnormal involuntary movements. Calm, guarded.? Non- pressured speech, spontaneous with regular rate and rhythm, quiet. Mood is ?okay,? affect is congruent. denies SI. Denies SIB/HI upon inquiry.? Thoughts are perseverative. Insight/ Judgment poor. Data Data Completed and Pending Completed studies during hospitalization [Text1]: 07/11/21 07/12/21 07/14/21 08:44 12:25 14:43 WBC 6.8 RBC 4.30 L Hgb 12.6 L Hct 39.6 L MCV 92.1 MCH 29.3 MCHC 31.8 RDW 15.6 Plt Count 284 D MPV 9.1 L Immature Gran % (Auto) 0.3 Neut % (Auto) 60.2 Lymph % (Auto) 32.2 Dougherty % (Auto) 6.2 Eos % (Auto) 0.7 Baso % (Auto) 0.4 Lymph # (Auto) 2.2 Dougherty # (Auto) 0.4 Eos # (Auto) 0.1 Baso # (Auto) 0.0 Abs Immat Gran (auto) 0.02 Absolute Neuts (auto) 4.1 Absolute Nucleated RBC 0.000 Nucleated RBC % (auto) 0.0 Sodium 138 139 Potassium 4.2 D 4.8 Chloride 102 104 Carbon Dioxide 29 28 Anion Gap 11 L 12 BUN 7 L D 9 Creatinine 0.82 0.99 Estim Creat Clear Calc TNP 86.0 Estimated GFR > 60 > 60 Random Glucose 115 141 H Calcium 9.1 9.2 Magnesium 2.1 Total Bilirubin 0.4 0.3 Direct Bilirubin AST 69 H 54 H ALT 257 H 188 H Alkaline Phosphatase 66 62 Ammonia Total Protein 6.6 6.6 Albumin 3.4 L 3.4 L 07/14/21 07/16/21 07/16/21 14:43 11:33 11:33 WBC RBC Hgb Hct MCV MCH MCHC RDW Plt Count MPV Immature Gran % (Auto) Neut % (Auto) Lymph % (Auto) Dougherty % (Auto) Eos % (Auto) Baso % (Auto) Lymph # (Auto) Dougherty # (Auto) Eos # (Auto) Baso # (Auto) Abs Immat Gran (auto) Absolute Neuts (auto) Absolute Nucleated RBC Nucleated RBC % (auto) Sodium 136 Potassium 4.5 Chloride 105 Carbon Dioxide 22 Anion Gap 14 BUN 7 L Creatinine 0.94 Estim Creat Clear Calc 90.6 Estimated GFR > 60 Random Glucose 110 Calcium 9.3 Magnesium 2.4 Total Bilirubin 0.4 0.4 Direct Bilirubin 0.2 AST 48 H 32 ALT 134 H 80 H Alkaline Phosphatase 69 64 Ammonia 37 Total Protein 7.1 6.9 Albumin 3.7 3.6 DS: Summary Hospital Course Hospital Course: Jerson is a 51 y.o. Male who carries a dx of schizoaffective DO, depressive type and opioid use disorder, mild alcohol use disorder. He [place] [facility] [place] due to complaining of command AH telling him to cut his throat and panic attacks. Pt has been non-adherent with medications and has hx of multiple inpatient psych admissions, last at [facility] [place]. While in the ED, patient noted to have rhabdomyolysis, transaminitis, and NAOMI. He was [place] [facility]. Utox was positive for opiates, fentanyl, and cocaine.? During course of hospitalization, pt?s acute Hep panel was nonreactive/ negative, HIV negative, hep c viral load non-reactive. Pt was placed on COWS and CIWA protocol with Ativan PRN. Rhabdomyolysis and NAOMI resolved after IV fluid hydration and were determined likely due to cocaine-induced vasoconstriction and pigment nephropathy. Transaminasemia could be due to rhabdomyolysis.? Abdominal US was normal. Pt complained of chest pain and per cardiology workup for possible cardiomegaly on CXR and atypical chest pain, TTE did not demonstrate cardiomyopathy.? Troponins were indeterminate/flat and the chest pain was attributed to musculoskeletal factors plus opioid withdrawal and cocaine use. Pt was started on maintenance PO magnesium.? I evaluated the pt this evening and upon interview he reports his mood is ?not too good.? He is found laying down in bed, says his sleep is ?sometimes not good.? Reports he is in the hospital due to depression, anxiety, and hearing voices telling him to hurt himself. Energy is low. Continues to endorse passive SI but denies plan or intent and says he feels safe. Says he is irritable but denies assaultive ideation. Does not want to continue interview and does not want med changes, says he would be willing to discuss this tomorrow. Past Psychiatric History: -Pt psychiatrist is Dr. Bud Da Silva and he has OP services at [facility] -Hx of multiple psych inpatient admissions since 2011. Hx of CCS, ATS.? -Past med trials: trazodone (facial swelling), doxepin (leg swelling), quetiapine (facial swelling), clonidine, amitriptyline, prolixin, remeron. Medical Evaluation Reviewed: Yes HOSPITAL COURSE On the unit, Mr. Taveras was admitted on a CV and placed on 15 minutes checks for safety. After reviewing risks, benefits and alternative treatment option, he initially agreed to continue abilify, which was later switched to paliperidone as pt reported continued AH. He had several GI complaints including nausea, unwitnessed vomiting, abdominal pain which has been evaluated by GI specialist in the community and has been attributed to achalasia. Pt also has dysphasia secondary to achalasia. Chest pain, which has not been deemed as cardiac. Mr. Taveras was mostly in his room. He denied suicidal ideation unless when related to somatic complaints when he reported passive SI. He denied any plan or intent to hurt herself. He was inconsistent about his report as to whether he wanted to be referred to residential substance use treatment program or not. He finally decided to return home. He met with addiction team specialist, Meghan Stewart to discuss restarting methadone but his report of how much opioid he has been using was unclear. He may benefit from monitoring memory/cognition as it is unclear if such inconsistent reports are due to cognitive deficits. He did not show signs of aggression towards self or others. He was given narcan at time of discharge. Status at Discharge Cognitive/behavioral status at discharge: Pt brighter affect. No SI/HI. Less AH, but not CAH. No signs of aggression towards self or others. He was sleeping and eating well. Functional status at discharge: independent ambulation Overall status at discharge: patient is progressing back to baseline Time Spent with Patient Time attestation: Total time spent providing and/or coordinating discharge services: Time spent: Greater than 30 minutes Discharge Plan Discharge Patient Disposition: Home, Self-Care Discharge Diagnosis: MDD with psychosis opioid use disorder Referrals: [facility] [Other] - 07/23/21 8:45 am (Telehealth Appointment) Bud Hughes (Psychiatry) [Other] - 08/08/21 12:30 pm (Telehealth Appointment) Gretchen Turcios MD [Primary Care Provider] - 08/06/21 9:00 am Discharge Medications: New clonidine HCl 0.1 mg Tablet 0.1 mg PO BID Qty: 60 0RF Protocol: Hold for SBP< HOLD for SBP < : 90 famotidine 20 mg Tablet 20 mg PO BID Qty: 60 0RF mirtazapine 15 mg Tablet 15 mg PO BEDTIME Qty: 30 0RF paliperidone [Invega] 6 mg Tablet Extended Release 24 Hr 6 mg PO DAILY Qty: 30 0RF ferrous sulfate 324 mg (65 mg iron) Tablet,Delayed Release (Dr/Ec) 324 mg PO DAILY Qty: 30 0RF lidocaine [Lidocaine Pain Relief] 4 % Adhesive Patch,Medicated 1 patch transdermal DAILY Qty: 10 0RF Protocol: Apply to: Apply to: chest wall capsaicin 0.025 % Cream 1 appl topical TID Qty: 25 0RF Protocol: Apply to: Apply to: bilat knee tamsulosin [Flomax] 0.4 mg capsule 0.4 mg PO BEDTIME Qty: 30 0RF Continued ondansetron 4 mg tablet,disintegrating 1 tab PO Q8H PRN (Reason: nausea/vomiting) Qty: 60 0RF Discontinued ferrous sulfate 300 mg (60 mg iron)/5 mL liquid 5 ml PO DAILY 0RF zolpidem 10 mg tablet 1 tab PO BEDTIME PRN (Reason: Insomnia) 0RF lidocaine [Lidocaine Pain Relief] 4 % Adhesive Patch,Medicated 1 patch transdermal DAILY Qty: 30 0RF Protocol: Apply to: Apply to: chest wall magnesium oxide 400 mg (241.3 mg magnesium) Tablet 400 mg PO BIDPC Qty: 60 0RF Discharge Orders: Discharge Order (Routine); Ordered 07/17/21 Ordered By: Ira Funk Diet: regular diet Activity on Discharge: As tolerated Stand Alone Forms: Patient Portal Discharge page Care Plan Goals: 1. Maintain mood 2. no SI/HI 3. Harm reduction- narcan given on discharge Health Concerns: Follow up with PCP Follow up with GI- achalasia Follow up with urology- BPH, ED Plan of Treatment: 1. Take medications as prescribed. 2. Go to nearest ED or call 911 in event of emergency Assessment: Pt with brighter, non labile mood. No SI/HI. residual AH, but no CAH. chronic GI symptoms related to achalasia which pt is being followed by GI specialist. No signs of aggression towards self or others.
--- NOTE | 2021-07-17 10:15 | PC.NURSE ---
Jerson is alert, fully oriented, pleasant and cooperative with discharge plan. He continues to report auditory hallucinations with command content to harm himself. Ira Funk WELL POINT PUMPING SUPERVISOR aware. Patient verbalizes understanding of crisis plan - call crisis team, call 911 or present at ED if patient develops intent to harm self or others. He continues to complain of GI upset - nausea and diarrhea, which he will follow up with pcp.
== END 2021-07-17 10:35 | disposition home or self-care (01) | DRG 750 ==
PROVIDERS: Clinical Nurse Specialist Psychiatric/Mental Health; Registered Nurse; Admitting Provider Psychiatry & Neurology Psychiatry; PCP Internal Medicine; Visit Provider Social Worker
DX: F25.1 Schizoaffective disorder, depressive type (principal); R45.851 Suicidal ideations; Z91.14 Patient's other noncompliance with medication regimen; F10.20 Alcohol dependence, uncomplicated; F17.210 Nicotine dependence, cigarettes, uncomplicated; K21.9 Gastro-esophageal reflux disease without esophagitis; Z88.5 Allergy status to narcotic agent; Z88.6 Allergy status to analgesic agent; Z91.041 Radiographic dye allergy status; Z79.899 Other long term (current) drug therapy
CPT/HCPCS: 36415; 80053; 80076; 82140; 83735; 85025; 93005

== ENCOUNTER 2021-08-17 19:36 | Emergency (ER) | payer MEDICAID, SELFPAY ==
--- NOTE | ~2021-08-17 | XR_ITS ---
EXAMINATION: XR CHEST CLINICAL INFORMATION: Chest pain. COMPARISON: Chest x-rays of 07/05/2021, 07/26/2020, chest CT of 04/07/2020. TECHNIQUE: Frontal view of the chest was obtained. FINDINGS: Cardiomediastinal silhouette is stable with borderline normal cardiac size/mild cardiomegaly. There is stable mild elevation of the right hemidiaphragm. The lungs are well expanded. No focal consolidation, changes of congestion, pleural effusions or pneumothorax. Regional skeleton is intact. Visualized upper abdomen is unremarkable. XR/XR chest 1V IMPRESSION: No acute pulmonary process.
--- NOTE | 2021-08-17 19:49 | ECG_ITS ---
Test Reason : ABDOMINAL PAIN Blood Pressure : / mmHG Vent. Rate : 090 BPM Atrial Rate : 090 BPM P-R Int : 126 ms QRS Dur : 074 ms QT Int : 358 ms P-R-T Axes : 017 002 020 degrees QTc Int : 437 ms Normal sinus rhythm Minimal voltage criteria for LVH, may be normal variant ( R in aVL ) Borderline ECG When compared with ECG of 14-JUL-2021 15:33, T wave inversion no longer evident in Anterior leads Referred By: Generic ED Physician Electronically Signed By:MARIE LOCKWOOD MD
[2021-08-17 20:57] LABS: MANUAL DIFF FLAG NO
[2021-08-17 21:01] VITALS: BP 139/77; PULSE 84; RESP 18; TEMP 36.2; O2SAT 98; BMI 29.0
[2021-08-17 21:13] LABS: Anion Gap 12 (12-20); Basophils Percent Auto 0.6 % (0-2); Blood Urea Nitrogen 8 mg/dL (9-16); Calcium 9.9 mg/dL (8.4-10.2); Carbon Dioxide 28 mmol/L (22-29); Chloride 107 mmol/L (96-108); Creatinine Clr Calc Pharmacy 99.5; Eosinophils Absolute Auto 0.2 X10*3/uL (0.0-0.4); Eosinophils Percent Auto 2.3 % (0-4); Estimated Glomerular Filt Rate > 60; Glucose Random 113 mg/dL (60-115); Hematocrit 38.4 % (42.0-52.0); Hemoglobin 12.5 g/dl (14.0-18.0); Imm Gran Abs Auto 0.03 X10*3/uL (0.00-0.03); Imm Gran Pct Auto 0.4 % (0.0-0.4); Lymphocytes Absolute Auto 2.4 X10*3/uL (1.2-4.9); Lymphocytes Percent Auto 34.5 % (20-40); Mean Corpuscular HGB Conc 32.6 g/dl (31.0-36.0); Mean Corpuscular Hemoglobin 29.7 pg (27.0-33.0); Mean Corpuscular Volume 91.2 fL (80.0-98.0); Mean Platelet Volume 9.4 fL (9.4-12.4); Monocytes Absolute Auto 0.7 X10*3/uL (0.1-1.2); Monocytes Percent Auto 9.6 % (2-11); Neutrophils Absolute Auto 3.7 x10*3/uL (2.0-8.3); Neutrophils Percent Auto 52.6 % (45-73); Platelet Count 293 X10*3/uL (160-400); Potassium 3.9 mmol/L (3.3-5.1); Red Blood Count 4.21 X10*6/uL (4.60-5.80); Red Cell Distribution Width 15.2 % (11.0-16.0); Sodium 143 mmol/L (135-145)
[2021-08-17 21:20] LABS: Troponin-I High Sensitivity < 3.5 ng/L (<3.5-35.0)
[2021-08-18 01:20] LABS: Alanine Aminotransferase 13 U/L (0-40); Albumin Level 3.7 g/dL (3.5-5.0); Alkaline Phosphatase 73 U/L (39-117); Aspartate Amino Transferase 18 U/L (5-37); Bilirubin Direct 0.2 mg/dL (0.0-0.5); Bilirubin Total 0.5 mg/dL (0.0-1.0); Lipase 4 U/L (8-78); Total Protein 6.7 g/dL (6.5-8.0)
--- NOTE | 2021-08-18 01:47 | ED.CHESTPAIN ---
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 Patient denies any associated shortness of breath, dizziness, headache, nausea and denies any use of alcohol/illicit drugs or marijuana. Otherwise, patient denies any GI or symptoms but then further states that today he experienced 2 episodes of ?collapsing in the street? and each time he was carried to his apartment by a stranger and states that at that time he experience loss of urine. Patient states that his primary care provider is Michelle and that he does not have an appointment for 1 month. Patient is requesting something for pain. Related Data Previous Rx's Medication Instructions Recorded capsaicin 0.025 % topical cream 1 appl TOPICAL TID #25 g 07/17/21 clonidine HCl 0.1 mg tablet 0.1 mg PO BID #60 tab 07/17/21 famotidine 20 mg tablet 20 mg PO BID #60 tab 07/17/21 lidocaine 4 % topical patch 1 patch TRANSDERMAL DAILY #10 ea 07/17/21 (Lidocaine Pain Relief) mirtazapine 15 mg tablet 15 mg PO BEDTIME #30 tab 07/17/21 ondansetron 4 mg disintegrating 1 tab PO Q8H PRN #60 tab 07/17/21 tablet paliperidone 6 mg tablet,extended 6 mg PO DAILY #30 tab 07/17/21 release 24 hr (Invega) tamsulosin 0.4 mg capsule (Flomax) 0.4 mg PO BEDTIME #30 cap 07/17/21 sennosides 8.6 mg-docusate sodium 2 tab-cap PO BEDTIME 30 Days #60 07/26/21 50 mg tablet (Senna with Docusate tab Sodium) ferrous sulfate 300 mg (60 mg 300 mg (5 mL) PO DAILY 90 Days 07/31/21 iron)/5 mL oral liquid #450 ml Allergies Allergy/AdvReac Type Severity Reaction Status Date / Time trazodone [TRAZODONE] Allergy Severe FACIAL Verified 06/23/21 08:15 SWELLING, swelling cat dander [CATS] Allergy Intermediate FACIAL Verified 06/23/21 08:15 ITCHING doxepin [DOXEPIN] Allergy Intermediate WEIGHT Verified 06/23/21 08:15 GAIN/LEG SWELLING Iodinated Contrast Media Allergy Intermediate ITCHING Verified 06/23/21 08:15 [IV DYE, IODINE CONTAINING CONTRAST ] nitroglycerin [NITROGLYCERIN] Allergy Unknown UNKNOWN Verified 06/23/21 08:15 tramadol [TRAMADOL] Allergy Unknown UNKNOWN, Verified 06/23/21 08:15 dry mouth ibuprofen [From MOTRIN] AdvReac Intermediate GI UPSET Verified 06/23/21 08:15 quetiapine [From SEROQUEL] AdvReac Intermediate FACIAL Verified 06/23/21 08:15 SWELLING aspirin [ASPIRIN] AdvReac Mild Stomach Verified 06/23/21 08:15 Upset Ibuprofen Allergy Unknown stomach Uncoded 01/30/21 10:12 ache IV contrast Allergy Unknown Unknown Uncoded 01/30/21 10:12 Motrin Allergy Unknown stomach Uncoded 01/30/21 10:12 pain Review of Systems Review of Systems: Pertinent positives and negatives as stated in HPI 10 point review of systems is otherwise negative. [facility] Past Medical History Source: nursing notes reviewed Medical History Alcohol dependence Anxiety Chest pain Derangement of symphysis pubis Dysphagia GERD (gastroesophageal reflux disease) Major depressive disorder, recurrent severe without psychotic features Opioid abuse Weight loss Surgical History H/O umbilical hernia repair History of colonoscopy History of cystoscopy Family History Family History Father HTN (hypertension) Diabetes Mother HTN (hypertension) Stroke Alzheimer disease Heart disease Social History Social History Household Members: Other Housing: Homeless Do you presently have visiting nurse or other home services: No Alcohol intake: never Patient Tobacco Use Status: Current everyday Tobacco user Tobacco use type: Cigarette Cigarette Packs Per Day: 1 Cigarettes Per Day: 20.0 Years Smoked: 9 e-Cigarette/Vaping Use: Never Used Second Hand Smoke Exposure: No Substance Use Type: Crack/Cocaine and Opiates Advance Directives: No Advance Directives Date on File: 02/24/20 service: No Current occupational status: unemployed and disabled Sexual orientation: Questioning Physical Exam Vital Signs: Vital Signs: Last Vital Signs Temp 97.2 F 08/17/21 21:01 Pulse 84 08/17/21 21:01 Resp 18 08/17/21 21:01 BP 139/77 08/17/21 21:01 Pulse Ox 98 08/17/21 21:01 BMI result Body Mass Index 29.0 VITAL SIGNS: Reviewed. GENERAL: Well developed, well nourished, in no acute distress. HEAD: Normocephalic/atraumatic, no contusion/abrasions/laceration noted EYES: PERRLA, EOMI intact without pain, no nystagmus/pallor/icterus noted EARS: Ext canals without abnormality OROPHARYNX: no oral lesions noted, posterior pharynx clear LUNGS: Normal breath sounds. No adventitious sounds or accessory muscle use. SpO2<98>; CHEST WALL: No chest wall tenderness on palpation, crepitus, or deformity CARDIOVASCULAR: Regular rate and rhythm without noted murmurs, no JVD or lower extremity edema. ABDOMEN: Soft, non-tender, non-distended with bowel sounds. MUSCULOSKELETAL: No tenderness, deformities, or effusions noted on gross inspection. EXTREMITIES: No cyanosis, clubbing or edema. SKIN: Inspection of the skin reveals no rashes NEUROLOGIC: Alert and oriented x 4. Strength and sensation to light touch were grossly intact x 4. Course Course Course Narrative: 51-year-old male with history and clinical presentation mildly suggestive of GERD/gastritis and lower clinical suspicion for cardiopulmonary etiology given the time frame of 2 days. On review of all investigations there are no acute findings when compared to baseline. In fact, on review of patient's documentation there is mention of alcohol use disorder as well as prior toxicology results the demonstrate use of illicit drugs. Patient was reassured that we would continue to evaluate him for his concerns regarding his falls, but he was reassured that at this time there was low likelihood of any heart or lung issue. Patient requested pain medication and when he was offered Tylenol he began to become belligerent and demanding to be admitted for further investigations. Patient then stood up and said that he was going to leave and I requested that he signed against medical advice and he stated ?I am not signing anything? and left. Patient appeared well at the time of leaving and was noted to walk with a steady gait. And on review of vital signs he was noted to be hemodynamically stable. MDM - Chest Pain Lab Data Result diagrams: 08/17/21 20:51 08/17/21 20:51 Labs: Lab Results 08/17/21 08/17/21 08/17/21 Range/Units 20:51 20:51 20:51 WBC 7.0 (4.8-10.8) X10*3/uL RBC 4.21 L (4.60-5.80) X10*6/uL Hgb 12.5 L (14.0-18.0) g/dl Hct 38.4 L (42.0-52.0) % MCV 91.2 (80.0-98.0) fL MCH 29.7 (27.0-33.0) pg MCHC 32.6 (31.0-36.0) g/dl RDW 15.2 (11.0-16.0) % Plt Count 293 (160-400) X10*3/uL MPV 9.4 (9.4-12.4) fL Immature Gran % (Auto) 0.4 (0.0-0.4) % Neut % (Auto) 52.6 (45-73) % Lymph % (Auto) 34.5 (20-40) % [place] % (Auto) 9.6 (2-11) % Eos % (Auto) 2.3 (0-4) % Baso % (Auto) 0.6 (0-2) % Lymph # (Auto) 2.4 (1.2-4.9) X10*3/uL [place] # (Auto) 0.7 (0.1-1.2) X10*3/uL Eos # (Auto) 0.2 (0.0-0.4) X10*3/uL Baso # (Auto) 0.0 (0.0-0.2) X10*3/uL Abs Immat Gran (auto) 0.03 (0.00-0.03) X10*3/uL Absolute Neuts (auto) 3.7 (2.0-8.3) x10*3/uL Absolute Nucleated RBC 0.000 (0.0-0.012) X10*3/uL Nucleated RBC % (auto) 0.0 (0.0-0.2) /100WBC Sodium 143 (135-145) mmol/L Potassium 3.9 (3.3-5.1) mmol/L Chloride 107 (96-108) mmol/L Carbon Dioxide 28 (22-29) mmol/L Anion Gap 12 (12-20) BUN 8 L (9-16) mg/dL Creatinine 0.86 (0.5-1.4) mg/dL Estim Creat Clear Calc 99.5 Estimated GFR > 60 Random Glucose 113 (60-115) mg/dL Calcium 9.9 D (8.4-10.2) mg/dL Total Bilirubin 0.5 (0.0-1.0) mg/dL Direct Bilirubin 0.2 (0.0-0.5) mg/dL AST 18 D (5-37) U/L ALT 13 (0-40) U/L Alkaline Phosphatase 73 (39-117) U/L Troponin I High Sens < 3.5 D (<3.5-35.0) ng/L Total Protein 6.7 (6.5-8.0) g/dL Albumin 3.7 (3.5-5.0) g/dL Lipase 4 L (8-78) U/L Discharge Plan Discharge Clinical Impression: Atypical chest pain, Falls Patient Disposition: Elopement Prescriptions: No Action sennosides-docusate sodium [Senna with Docusate Sodium] 8.6-50 mg tablet 2 tab-cap PO BEDTIME 30 Days Qty: 60 0RF ferrous sulfate 300 mg (60 mg iron)/5 mL liquid 300 mg PO DAILY 90 Days Qty: 450 0RF clonidine HCl 0.1 mg Tablet 0.1 mg PO BID Qty: 60 0RF Protocol: Hold for SBP< HOLD for SBP < : 90 famotidine 20 mg Tablet 20 mg PO BID Qty: 60 0RF mirtazapine 15 mg Tablet 15 mg PO BEDTIME Qty: 30 0RF paliperidone [Invega] 6 mg Tablet Extended Release 24 Hr 6 mg PO DAILY Qty: 30 0RF lidocaine [Lidocaine Pain Relief] 4 % Adhesive Patch,Medicated 1 patch transdermal DAILY Qty: 10 0RF Protocol: Apply to: Apply to: chest wall capsaicin 0.025 % Cream 1 appl topical TID Qty: 25 0RF Protocol: Apply to: Apply to: bilat knee tamsulosin [Flomax] 0.4 mg capsule 0.4 mg PO BEDTIME Qty: 30 0RF ondansetron 4 mg tablet,disintegrating 1 tab PO Q8H PRN (Reason: nausea/vomiting) Qty: 60 0RF
== END 2021-08-18 02:15 | disposition left against medical advice (07) ==
PROVIDERS: Emergency Provider Student in an Organized Health Care Education/Training Program; PCP Internal Medicine
DX: R07.89 Other chest pain (principal); Z91.81 History of falling; Z59.02 Unsheltered homelessness
CPT/HCPCS: 36415; 71045; 80048; 80076; 83690; 84484; 85025; 93005; 99281; 99283

== ENCOUNTER 2021-09-24 06:30 | Emergency (ER) | payer MEDICAID, SELFPAY ==
--- NOTE | ~2021-09-24 | XR_ITS ---
EXAMINATION: XR CHEST CLINICAL INFORMATION: Anterior chest pain COMPARISON: Prior chest August 17, 2021 TECHNIQUE: Frontal view of the chest was obtained. FINDINGS: No significant abnormality is noted involving the heart, lungs, mediastinum, bony thorax or soft tissues. XR/XR chest 1V IMPRESSION: Unremarkable examination.
[2021-09-24 06:37] VITALS: BP 134/90; PULSE 80; O2SAT 96; BMI 28.8
[2021-09-24 06:41] VITALS: BP 134/78; PULSE 72; PULSE 75; RESP 12; TEMP 36.6; O2SAT 96
--- NOTE | 2021-09-24 06:42 | ED_ITS ---
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 Mode of arrival: EMS Limitations: no limitations History of Present Illness MD complaint: chest pain (upper abdominal pain, vomiting when he eats) Pertinent past history: other (chronic chest pain, GERD) Onset (ago): week(s) (2) Timing of current episode: episodic Prior episodes: Yes Onset: after eating Pain location: substernal Pain radiation: none Severity: moderate Quality: burning Relieving factors: nothing Exacerbating factors: eating Context: other (hx of similar episodes) Associated symptoms: nausea and vomiting Treatment prior to arrival: none Related Data Previous Rx's Medication Instructions Recorded capsaicin 0.025 % topical cream 1 appl topical TID #25 grams 07/17/21 clonidine HCl 0.1 mg tablet 0.1 mg PO BID #60 tabs 07/17/21 famotidine 20 mg tablet 20 mg PO BID #60 tabs 07/17/21 lidocaine 4 % topical patch 1 patch transdermal DAILY #10 ea 07/17/21 (Lidocaine Pain Relief) mirtazapine 15 mg tablet 15 mg PO BEDTIME #30 tabs 07/17/21 ondansetron 4 mg disintegrating 1 tab PO Q8H PRN nausea/vomiting 07/17/21 tablet #60 tabs paliperidone 6 mg tablet,extended 6 mg PO DAILY #30 tabs 07/17/21 release 24 hr (Invega) tamsulosin 0.4 mg capsule (Flomax) 0.4 mg PO BEDTIME #30 caps 07/17/21 ferrous sulfate 300 mg (60 mg 300 mg (5 mL) PO DAILY 90 days 07/31/21 iron)/5 mL oral liquid #450 mL loperamide 2 mg capsule (Imodium 2 mg PO Q8H PRN loose stool 7 days 08/20/21 A-D) #20 caps sennosides 8.6 mg-docusate sodium 2 tab PO BEDTIME #60 tabs 08/30/21 50 mg tablet (Senna Plus) Allergies Allergy/AdvReac Type Severity Reaction Status Date / Time trazodone [TRAZODONE] Allergy Severe FACIAL Verified 06/23/21 08:15 SWELLING, swelling cat dander [CATS] Allergy Intermediate FACIAL Verified 06/23/21 08:15 ITCHING doxepin [DOXEPIN] Allergy Intermediate WEIGHT Verified 06/23/21 08:15 GAIN/LEG SWELLING Iodinated Contrast Media Allergy Intermediate ITCHING Verified 06/23/21 08:15 [IV DYE, IODINE CONTAINING CONTRAST ] nitroglycerin [NITROGLYCERIN] Allergy Unknown UNKNOWN Verified 06/23/21 08:15 tramadol [TRAMADOL] Allergy Unknown UNKNOWN, Verified 06/23/21 08:15 dry mouth ibuprofen [From MOTRIN] AdvReac Intermediate GI UPSET Verified 06/23/21 08:15 quetiapine [From SEROQUEL] AdvReac Intermediate FACIAL Verified 06/23/21 08:15 SWELLING aspirin [ASPIRIN] AdvReac Mild Stomach Verified 06/23/21 08:15 Upset Ibuprofen Allergy Unknown stomach Uncoded 01/30/21 10:12 ache IV contrast Allergy Unknown Unknown Uncoded 01/30/21 10:12 Motrin Allergy Unknown stomach Uncoded 01/30/21 10:12 pain Review of Systems Review of Systems: Constitutional : No Weight loss, No Fever, No Chills ENT/Mouth : No sore throat, No Rhinorrhea Eyes: No Eye Pain, No Swelling Cardiovascular : pos Chest Pain, no SOB, no Dyspnea on Exertion, No Orthopnea, No Edema, No Palpitations Respiratory : No Cough, No Sputum Gastrointestinal : pos Nausea, pos Vomiting, No Diarrhea, pos abdominal Pain, No Hematochezia, No Melena Genitourinary : No Dysuria, No Urinary Frequency Musculoskeletal : No joint pain, No Myalgias, No Joint Swelling Skin : No Skin Lesions, No rash Neuro : No Weakness, No Numbness, No Dizziness, No Headache Psych : No Anxiety/Panic, No Depression Heme/Lymph: No Bruising, No Lymphadenopathy Endocrine : No Polyuria, No Polydipsia All other systems reviewed and are negative [facility] Past Medical History Attestation statement: The following information was validated with the patient. Medical History Alcohol dependence Chest pain Derangement of symphysis pubis Dysphagia GERD (gastroesophageal reflux disease) Major depressive disorder, recurrent severe without psychotic features Opioid abuse Surgical History H/O umbilical hernia repair History of colonoscopy History of cystoscopy Family History Family History Father HTN (hypertension) Diabetes Mother HTN (hypertension) Stroke Alzheimer disease Heart disease Social History Social History Household Members: Other Housing: Homeless Do you presently have visiting nurse or other home services: No Alcohol intake: former Patient Tobacco Use Status: Current everyday Tobacco user Tobacco use type: Cigarette Cigarette Packs Per Day: 1 Cigarettes Per Day: 20.0 Years Smoked: 9 Smoked in Last 30 Days: Yes e-Cigarette/Vaping Use: Never Used Second Hand Smoke Exposure: No Use of substances other than those prescribed or required for medical reasons: No Substance Use Type: Crack/Cocaine and Opiates Advance Directives: No Advance Directives Information Provided: No Advance Directives Date on File: 02/24/20 service: No Current occupational status: unemployed and disabled Sexual orientation: Questioning Physical Exam Vital Signs: Vital Signs: Last Vital Signs Temp 98.8 F 09/24/21 08:00 Pulse 72 09/24/21 08:00 Resp 17 09/24/21 08:00 BP 121/74 09/24/21 08:00 Pulse Ox 97 09/24/21 08:00 O2 Del Method 09/24/21 08:00 BMI result Body Mass Index 28.8 Appearance: Alert. Oriented X3. No acute distress. Eyes: Pupils equal, round and reactive to light. ENT: Pharynx normal. Neck: Normal inspection. Neck supple. CVS: Normal heart rate and rhythm. Pulses normal. Respiratory: No respiratory distress. Breath sounds normal. Abdomen: Soft and non-tender. Skin: Skin warm and dry. Normal skin color. Normal skin turgor. Extremities: No lower extremity edema. No calf ttp Neuro: Oriented X 3. No motor deficit. No sensory deficit. Course Course Course Narrative: tolerated PO, repeatedly asking for pain medications - chronic complaint, labs normal EKG and CXR negative stable for DC MDM - Chest Pain MDM Narrative Medical decision making narrative: 51 yo male with hx of GERD, chronic chest pain, alcohol abuse, dysphagia, anemia, schizoaffective disorder here with c/o 2 weeks of epigastric burning, chest pain and nausea vomiting when he eats - chronic history of the same in past. States he is compliant with his medications. At this time will need labs, CXR, EKG, zofran, GI cocktail seems GERD related. Given 2 weeks of symptoms d oubt ACS and PE and symptoms are atypical in nature - dispo per results and findings. Lab Data Result diagrams: 09/24/21 06:49 09/24/21 06:49 Labs: Lab Results 09/24/21 09/24/21 09/24/21 Range/Units 06:49 06:49 06:49 WBC 9.5 (4.8-10.8) X10*3/uL RBC 4.42 L (4.60-5.80) X10*6/uL Hgb 13.0 L (14.0-18.0) g/dl Hct 39.7 L (42.0-52.0) % MCV 89.8 (80.0-98.0) fL MCH 29.4 (27.0-33.0) pg MCHC 32.7 (31.0-36.0) g/dl RDW 14.0 (11.0-16.0) % Plt Count 238 (160-400) X10*3/uL MPV 9.4 (9.4-12.4) fL Immature Gran % (Auto) 0.3 (0.0-0.4) % Neut % (Auto) 71.0 (45-73) % Lymph % (Auto) 20.5 (20-40) % [place] % (Auto) 4.8 (2-11) % Eos % (Auto) 3.1 (0-4) % Baso % (Auto) 0.3 (0-2) % Lymph # (Auto) 1.9 (1.2-4.9) X10*3/uL [place] # (Auto) 0.5 (0.1-1.2) X10*3/uL Eos # (Auto) 0.3 (0.0-0.4) X10*3/uL Baso # (Auto) 0.0 (0.0-0.2) X10*3/uL Abs Immat Gran (auto) 0.03 (0.00-0.03) X10*3/uL Absolute Neuts (auto) 6.7 (2.0-8.3) x10*3/uL Absolute Nucleated RBC 0.000 (0.0-0.012) X10*3/uL Nucleated RBC % (auto) 0.0 (0.0-0.2) /100WBC Sodium 140 (135-145) mmol/L Potassium 3.6 (3.3-5.1) mmol/L Chloride 105 (96-108) mmol/L Carbon Dioxide 28 (22-29) mmol/L Anion Gap 11 L (12-20) BUN 5 L (9-16) mg/dL Creatinine 0.79 (0.5-1.4) mg/dL Estim Creat Clear Calc 104.4 Estimated GFR > 60 Random Glucose 114 (60-115) mg/dL Calcium 9.2 D (8.4-10.2) mg/dL Magnesium 1.9 (1.6-2.6) mg/dL Total Bilirubin 0.4 (0.0-1.0) mg/dL Direct Bilirubin < 0.2 (0.0-0.5) mg/dL AST 15 (5-37) U/L ALT 10 (0-40) U/L Alkaline Phosphatase 82 (39-117) U/L Troponin I High Sens < 3.5 (<3.5-35.0) ng/L Total Protein 7.0 (6.5-8.0) g/dL Albumin 3.9 (3.5-5.0) g/dL Lipase < 4 L (8-78) U/L Ethyl Alcohol mg/dL // Range/Units 06:49 WBC (4.8-10.8) X10*3/uL RBC (4.60-5.80) X10*6/uL Hgb (14.0-18.0) g/dl Hct (42.0-52.0) % MCV (80.0-98.0) fL MCH (27.0-33.0) pg MCHC (31.0-36.0) g/dl RDW (11.0-16.0) % Plt Count (160-400) X10*3/uL MPV (9.4-12.4) fL Immature Gran % (Auto) (0.0-0.4) % Neut % (Auto) (45-73) % Lymph % (Auto) (20-40) % [place] % (Auto) (2-11) % Eos % (Auto) (0-4) % Baso % (Auto) (0-2) % Lymph # (Auto) (1.2-4.9) X10*3/uL [place] # (Auto) (0.1-1.2) X10*3/uL Eos # (Auto) (0.0-0.4) X10*3/uL Baso # (Auto) (0.0-0.2) X10*3/uL Abs Immat Gran (auto) (0.00-0.03) X10*3/uL Absolute Neuts (auto) (2.0-8.3) x10*3/uL Absolute Nucleated RBC (0.0-0.012) X10*3/uL Nucleated RBC % (auto) (0.0-0.2) /100WBC Sodium (135-145) mmol/L Potassium (3.3-5.1) mmol/L Chloride (96-108) mmol/L Carbon Dioxide (22-29) mmol/L Anion Gap (12-20) BUN (9-16) mg/dL Creatinine (0.5-1.4) mg/dL Estim Creat Clear Calc Estimated GFR Random Glucose (60-115) mg/dL Calcium (8.4-10.2) mg/dL Magnesium (1.6-2.6) mg/dL Total Bilirubin (0.0-1.0) mg/dL Direct Bilirubin (0.0-0.5) mg/dL AST (5-37) U/L ALT (0-40) U/L Alkaline Phosphatase (39-117) U/L Troponin I High Sens (<3.5-35.0) ng/L Total Protein (6.5-8.0) g/dL Albumin (3.5-5.0) g/dL Lipase (8-78) U/L Ethyl Alcohol < 10 mg/dL ECG Data ECG #1: Attestation: I personally reviewed and interpreted this ECG as follows: ECG interpretation date: 09/24/21 ECG interpretation time: 06:44 Interpretation: Rate: 78 Rhythm: NSR [place]: left , LVH Normal P waves. Normal ELLEN. Normal QRS complex. ST T wave : normal no MARIAMA qTC: normal prior studies: no acute ischemia The study has been interpreted contemporaneously by me. . Discharge Plan Discharge Clinical Impression: Chest pain due to GERD Patient Disposition: Home, Self-Care Instructions: Chest Pain (ED), Gastroesophageal Reflux Disease (ED) Additional Instructions: return to ED for any worsening symptoms or concerns continue your medications Prescriptions: No Action ferrous sulfate 300 mg (60 mg iron)/5 mL liquid 300 mg PO DAILY 90 Days Qty: 450 0RF loperamide [Imodium A-D] 2 mg capsule 2 mg PO Q8H PRN (Reason: loose stool) 7 Days Qty: 20 0RF sennosides-docusate sodium [Senna Plus] 8.6-50 mg tablet 2 tab PO BEDTIME Qty: 60 0RF clonidine HCl 0.1 mg Tablet 0.1 mg PO BID Qty: 60 0RF Protocol: Hold for SBP< HOLD for SBP < : 90 famotidine 20 mg Tablet 20 mg PO BID Qty: 60 0RF mirtazapine 15 mg Tablet 15 mg PO BEDTIME Qty: 30 0RF paliperidone [Invega] 6 mg Tablet Extended Release 24 Hr 6 mg PO DAILY Qty: 30 0RF lidocaine [Lidocaine Pain Relief] 4 % Adhesive Patch,Medicated 1 patch transdermal DAILY Qty: 10 0RF Protocol: Apply to: Apply to: chest wall capsaicin 0.025 % Cream 1 appl topical TID Qty: 25 0RF Protocol: Apply to: Apply to: bilat knee tamsulosin [Flomax] 0.4 mg capsule 0.4 mg PO BEDTIME Qty: 30 0RF ondansetron 4 mg tablet,disintegrating 1 tab PO Q8H PRN (Reason: nausea/vomiting) Qty: 60 0RF Referrals: Patrick Ly MD [Primary Care Provider] - 2 days (if not better) Print Language: Martiniquais
[2021-09-24 06:54] LABS: MANUAL DIFF FLAG NO
[2021-09-24] MEDS: Ondansetron ODT 4 MG TAB.RAPDIS TRANSLINGU (06:54)
[2021-09-24] MEDS: Lidocaine HCl Viscous 2 % 15 ML SOLUTION MUCOUS MEM (06:54)
[2021-09-24] MEDS: Magnesium Hydrox/Alum Hydrox 30 ML ORAL.SUSP PO (06:54)
[2021-09-24 06:55] LABS: Basophils Percent Auto 0.3 % (0-2); Eosinophils Absolute Auto 0.3 X10*3/uL (0.0-0.4); Eosinophils Percent Auto 3.1 % (0-4); Hematocrit 39.7 % (42.0-52.0); Imm Gran Abs Auto 0.03 X10*3/uL (0.00-0.03); Imm Gran Pct Auto 0.3 % (0.0-0.4); Lymphocytes Absolute Auto 1.9 X10*3/uL (1.2-4.9); Lymphocytes Percent Auto 20.5 % (20-40); Mean Corpuscular HGB Conc 32.7 g/dl (31.0-36.0); Mean Corpuscular Hemoglobin 29.4 pg (27.0-33.0); Mean Corpuscular Volume 89.8 fL (80.0-98.0); Mean Platelet Volume 9.4 fL (9.4-12.4); Monocytes Absolute Auto 0.5 X10*3/uL (0.1-1.2); Monocytes Percent Auto 4.8 % (2-11); Neutrophils Absolute Auto 6.7 x10*3/uL (2.0-8.3); Platelet Count 238 X10*3/uL (160-400); Red Blood Count 4.42 X10*6/uL (4.60-5.80); White Blood Count 9.5 X10*3/uL (4.8-10.8)
--- NOTE | 2021-09-24 06:57 | ECG_ITS ---
Test Reason : CHEST PAIN Blood Pressure : / mmHG Vent. Rate : 078 BPM Atrial Rate : 078 BPM P-R Int : 132 ms QRS Dur : 080 ms QT Int : 404 ms P-R-T Axes : 014 -07 007 degrees QTc Int : 460 ms Normal sinus rhythm Minimal voltage criteria for LVH, may be normal variant ( R in aVL ) Borderline ECG When compared with ECG of 17-AUG-2021 20:51, No significant change was found Referred By: Generic ED Physician Electronically Signed By:MARIE LOCKWOOD MD
[2021-09-24 07:20] LABS: Ethanol < 10 mg/dL; Troponin-I High Sensitivity < 3.5 ng/L (<3.5-35.0)
[2021-09-24 07:21] LABS: Alanine Aminotransferase 10 U/L (0-40); Albumin Level 3.9 g/dL (3.5-5.0); Alkaline Phosphatase 82 U/L (39-117); Anion Gap 11 (12-20); Aspartate Amino Transferase 15 U/L (5-37); Bilirubin Direct < 0.2 mg/dL (0.0-0.5); Bilirubin Total 0.4 mg/dL (0.0-1.0); Blood Urea Nitrogen 5 mg/dL (9-16); Calcium 9.2 mg/dL (8.4-10.2); Carbon Dioxide 28 mmol/L (22-29); Chloride 105 mmol/L (96-108); Creatinine Clr Calc Pharmacy 104.4; Estimated Glomerular Filt Rate > 60; Glucose Random 114 mg/dL (60-115); Lipase < 4 U/L (8-78); Magnesium 1.9 mg/dL (1.6-2.6); Potassium 3.6 mmol/L (3.3-5.1); Sodium 140 mmol/L (135-145)
[2021-09-24 08:00] VITALS: BP 121/74; PULSE 72; RESP 17; TEMP 37.1; O2SAT 97
== END 2021-09-25 06:07 | disposition home or self-care (01) ==
PROVIDERS: Emergency Provider Emergency Medicine; PCP Internal Medicine
DX: R07.89 Other chest pain (principal); K21.9 Gastro-esophageal reflux disease without esophagitis; R10.13 Epigastric pain; F17.210 Nicotine dependence, cigarettes, uncomplicated; Z71.6 Tobacco abuse counseling; Z79.899 Other long term (current) drug therapy
CPT/HCPCS: 36415; 71045; 80048; 80076; 82077; 83690; 83735; 84484; 85025; 93005; 99283; 99285

== ENCOUNTER 2021-10-11 12:31 | Outpatient (REF) | payer MEDICAID, SELFPAY ==
--- NOTE | ~2021-10-11 | XR_ITS ---
EXAMINATION: KNEE X-RAY CLINICAL INFORMATION: Pain COMPARISON: Previous x-rays most recent October 2018 TECHNIQUE: Standing AP view of both knees and lateral and sunrise view of the left knee FINDINGS: Left: Bone alignment is normal. No fracture or dislocation is seen. There are degenerative changes at the medial femoral tibial joint with joint space narrowing and osteophyte formation. There are small osteophytes at the patellofemoral joint. There is no joint effusion. 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
--- NOTE | ~2021-10-11 | XR_ITS ---
EXAMINATION: KNEE X-RAY CLINICAL INFORMATION: Pain COMPARISON: Previous x-rays most recent October 2018 TECHNIQUE: Standing AP view of both knees and lateral and sunrise view of the left knee FINDINGS: Left: Bone alignment is normal. No fracture or dislocation is seen. There are degenerative changes at the medial femoral tibial joint with joint space narrowing and osteophyte formation. There are small osteophytes at the patellofemoral joint. There is no joint effusion. 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
== END 2021-10-11 12:32 | disposition home or self-care (01) ==
LOC: HO.HOSX 12:31
PROVIDERS: Visit Provider Physician Assistant
DX: M17.12 Unilateral primary osteoarthritis, left knee (principal)
CPT/HCPCS: 20610; 73560; 73565; 99202; J1040

== ENCOUNTER → 2021-10-17 09:02 | Outpatient (BNVA) | payer MEDICAID, SELFPAY | PROVIDERS: PCP Internal Medicine; Visit Provider Urology | DX: N40.1 Benign prostatic hyperplasia with lower urinary tract symptoms (principal); N13.8 Other obstructive and reflux uropathy; R35.0 Frequency of micturition; N52.9 Male erectile dysfunction, unspecified; Z79.899 Other long term (current) drug therapy | CPT/HCPCS: 99212 ==

== ENCOUNTER 2021-11-25 00:34 | Emergency (ER) | payer MEDICAID, SELFPAY ==
[2021-11-25 00:48] VITALS: BP 134/84; BP 134/86; PULSE 65; PULSE 88; RESP 18; TEMP 36.6; O2SAT 97; O2SAT 99; BMI 28.9
[2021-11-25 00:58] LABS: Basophils Percent Auto 0.4 % (0-2); Eosinophils Absolute Auto 0.3 X10*3/uL (0.0-0.4); Eosinophils Percent Auto 3.6 % (0-4); Hematocrit 38.2 % (42.0-52.0); Hemoglobin 12.9 g/dl (14.0-18.0); Imm Gran Abs Auto 0.02 X10*3/uL (0.00-0.03); Imm Gran Pct Auto 0.2 % (0.0-0.4); Lymphocytes Absolute Auto 2.7 X10*3/uL (1.2-4.9); MANUAL DIFF FLAG NO; Mean Corpuscular HGB Conc 33.8 g/dl (31.0-36.0); Mean Corpuscular Hemoglobin 29.8 pg (27.0-33.0); Mean Corpuscular Volume 88.2 fL (80.0-98.0); Mean Platelet Volume 9.3 fL (9.4-12.4); Monocytes Absolute Auto 0.6 X10*3/uL (0.1-1.2); Monocytes Percent Auto 7.2 % (2-11); Neutrophils Absolute Auto 4.9 x10*3/uL (2.0-8.3); Neutrophils Percent Auto 57.6 % (45-73); Platelet Count 239 X10*3/uL (160-400); Red Blood Count 4.33 X10*6/uL (4.60-5.80); Red Cell Distribution Width 14.4 % (11.0-16.0); White Blood Count 8.6 X10*3/uL (4.8-10.8)
[2021-11-25 01:24] LABS: Alanine Aminotransferase 15 U/L (0-40); Alkaline Phosphatase 86 U/L (39-117); Anion Gap 17 (12-20); Aspartate Amino Transferase 22 U/L (5-37); Bilirubin Total 0.7 mg/dL (0.0-1.0); Blood Urea Nitrogen 3 mg/dL (9-16); Calcium 9.2 mg/dL (8.4-10.2); Carbon Dioxide 24 mmol/L (22-29); Chloride 99 mmol/L (96-108); Creatinine Clr Calc Pharmacy 110.2; Estimated Glomerular Filt Rate > 60; Glucose Random 95 mg/dL (60-115); Potassium 3.5 mmol/L (3.3-5.1); Sodium 136 mmol/L (135-145); Total Protein 7.3 g/dL (6.5-8.0)
--- NOTE | 2021-11-25 01:37 | ED.ABDPAIN ---
HPI - Abdominal Pain General Chief Complaint: Abdominal Pain Stated Complaint: Abd pain,bloody stools Time Seen by Provider: 11/25/21 01:30 Source: patient Mode of arrival: ambulatory Limitations: no limitations History of Present Illness HPI narrative: 51 yo male with hx of chronic abdominal pain, schizoaffective disorder, bipolar, BPH, opiate abuse, prior pancreatitis, GIB, esophageal dysmotility reports 1 week of vomiting, abdominal pain and black stools. Denies Fe use. Not on aspirin or blood thinners. MD elicited complaint: abdominal pain Pertinent past history: other (chronic abdominal pain) Onset (ago): week(s) (1) Pain Consistency: constant Location: RUQ Severity: moderate Quality: aching Radiation: none Migration to: no migration Exacerbating factors: eating Relieving factors: nothing Context: history of similar episodes Associated symptoms: nausea, vomiting and melena Related Data Previous Rx's Medication Instructions Recorded capsaicin 0.025 % topical cream 1 appl topical TID #25 grams 07/17/21 clonidine HCl 0.1 mg tablet 0.1 mg PO BID #60 tabs 07/17/21 famotidine 20 mg tablet 20 mg PO BID #60 tabs 07/17/21 lidocaine 4 % topical patch 1 patch transdermal DAILY #10 ea 07/17/21 (Lidocaine Pain Relief) mirtazapine 15 mg tablet 15 mg PO BEDTIME #30 tabs 07/17/21 ondansetron 4 mg disintegrating 1 tab PO Q8H PRN nausea/vomiting 07/17/21 tablet #60 tabs paliperidone 6 mg tablet,extended 6 mg PO DAILY #30 tabs 07/17/21 release 24 hr (Invega) ferrous sulfate 300 mg (60 mg 300 mg (5 mL) PO DAILY 90 days 07/31/21 iron)/5 mL oral liquid #450 mL sennosides 8.6 mg-docusate sodium 2 tab PO BEDTIME #60 tabs 08/30/21 50 mg tablet (Senna Plus) loperamide 2 mg capsule (Imodium 2 mg PO Q8H PRN loose stool 7 days 10/16/21 A-D) #20 caps terazosin 5 mg capsule 5 mg PO BEDTIME 90 days #90 caps 10/17/21 Allergies Allergy/AdvReac Type Severity Reaction Status Date / Time trazodone [TRAZODONE] Allergy Severe FACIAL Verified 11/25/21 00:48 SWELLING, swelling cat dander [CATS] Allergy Intermediate FACIAL Verified 11/25/21 00:48 ITCHING doxepin [DOXEPIN] Allergy Intermediate WEIGHT Verified 11/25/21 00:48 GAIN/LEG SWELLING Iodinated Contrast Media Allergy Intermediate ITCHING Verified 11/25/21 00:48 [IV DYE, IODINE CONTAINING CONTRAST ] nitroglycerin [NITROGLYCERIN] Allergy Unknown UNKNOWN Verified 11/25/21 00:48 tramadol [TRAMADOL] Allergy Unknown UNKNOWN, Verified 11/25/21 00:48 dry mouth ibuprofen [From MOTRIN] AdvReac Intermediate GI UPSET Verified 11/25/21 00:48 quetiapine [From SEROQUEL] AdvReac Intermediate FACIAL Verified 11/25/21 00:48 SWELLING aspirin [ASPIRIN] AdvReac Mild Stomach Verified 11/25/21 00:48 Upset Ibuprofen Allergy Unknown stomach Uncoded 11/25/21 00:48 ache IV contrast Allergy Unknown Unknown Uncoded 11/25/21 00:48 Motrin Allergy Unknown stomach Uncoded 11/25/21 00:48 pain Review of Systems Review of Systems Constitutional : No Weight loss, No Fever, No Chills ENT/Mouth : No sore throat, No Rhinorrhea Eyes: No Swelling, No Redness Cardiovascular : No Chest Pain, No SOB, NoEdema Respiratory : No Cough, No Sputum, No Wheezing Gastrointestinal : Positive Nausea, Positive Vomiting, no Diarrhea, positive abdominal Pain, No Hematochezia, pos Melena Genitourinary : No Dysuria, No Urinary Frequency, No Hematuria, No Urgency Musculoskeletal : No joint pain, No Myalgias, No Joint Swelling Skin : No Skin Lesions, No rash Neuro : No Weakness, No Numbness, No Dizziness, No Headache Psych : No Anxiety/Panic, No Depression Heme/Lymph: No Bruising, No Lymphadenopathy Endocrine : No Polyuria, No Polydipsia All other systems reviewed and are negative. [facility] Past Medical History Attestation statement: The following information was validated with the patient. Medical History Alcohol dependence Anxiety Chest pain Derangement of symphysis pubis Dysphagia GERD (gastroesophageal reflux disease) Major depressive disorder, recurrent severe without psychotic features Opioid abuse Weight loss Surgical History H/O umbilical hernia repair History of colonoscopy History of cystoscopy Family History Family History Father HTN (hypertension) Diabetes Mother HTN (hypertension) Stroke Alzheimer disease Heart disease Social History Social History Household Members: Other Housing: Homeless Do you presently have visiting nurse or other home services: No Alcohol intake: former Patient Tobacco Use Status: Current everyday Tobacco user Tobacco use type: Cigarette Cigarette Packs Per Day: 1 Cigarettes Per Day: 20.0 Years Smoked: 9 e-Cigarette/Vaping Use: Never Used Second Hand Smoke Exposure: No Substance Use Type: Crack/Cocaine and Opiates Advance Directives: No Advance Directives Information Provided: Yes Advance Directives Date on File: 02/24/20 service: No Current occupational status: unemployed and disabled Sexual orientation: Questioning Physical Exam ED Vital Signs: Vital Signs - 24 hr 11/25/21 00:48 Temperature 97.9 F Pulse Rate 65 Respiratory Rate 18 Blood Pressure 134/86 Pulse Oximetry 97 Oxygen Delivery Method Room Air BMI result Body Mass Index 28.9 Appearance: Alert. Oriented X3. No acute distress. Eyes: Pupils equal, round and reactive to light. ENT: Pharynx normal. Neck: Normal inspection. Neck supple. CVS: Normal heart rate and rhythm. Pulses normal. Respiratory: No respiratory distress. Breath sounds normal. Abdomen: Soft and nontender. Rectal: brown stool Skin: Skin warm and dry. Normal skin color. Normal skin turgor. Extremities: No lower extremity edema. No calf ttp Neuro: Oriented X 3. No motor deficit. No sensory deficit. Course Course Course Narrative: labs and guiac stable, no anemia no signs of bleeding negative workup stable for DC MDM - Abdominal Pain MDM Narrative Medical decision making narrative: 51 yo male with hx of chronic abdominal pain, schizoaffective disorder, bipolar, BPH, opiate abuse, prior pancreatitis, GIB, esophageal dysmotility here with c/o black stools, n/v and abdominal pain he is not toxic appearing, similar complaints in the past, stool is brown, VS stable, will start with labs and guic study PO medications. Abdomen is benign, avoid narcotics. Differential Diagnosis Differential diagnosis: Unlikely aortic dissection, acute appendicitis, bowel perforation, diverticulitis or endometriosis Lab Data Result diagrams: 11/25/21 00:55 11/25/21 00:55 Labs: Lab Results 11/25/21 11/25/21 11/25/21 Range/Units 00:55 00:55 01:34 WBC 8.6 (4.8-10.8) X10*3/uL RBC 4.33 L (4.60-5.80) X10*6/uL Hgb 12.9 L (14.0-18.0) g/dl Hct 38.2 L (42.0-52.0) % MCV 88.2 (80.0-98.0) fL MCH 29.8 (27.0-33.0) pg MCHC 33.8 (31.0-36.0) g/dl RDW 14.4 (11.0-16.0) % Plt Count 239 (160-400) X10*3/uL MPV 9.3 L (9.4-12.4) fL Immature Gran % (Auto) 0.2 (0.0-0.4) % Neut % (Auto) 57.6 (45-73) % Lymph % (Auto) 31.0 (20-40) % [place] % (Auto) 7.2 (2-11) % Eos % (Auto) 3.6 (0-4) % Baso % (Auto) 0.4 (0-2) % Lymph # (Auto) 2.7 (1.2-4.9) X10*3/uL [place] # (Auto) 0.6 (0.1-1.2) X10*3/uL Eos # (Auto) 0.3 (0.0-0.4) X10*3/uL Baso # (Auto) 0.0 (0.0-0.2) X10*3/uL Abs Immat Gran (auto) 0.02 (0.00-0.03) X10*3/uL Absolute Neuts (auto) 4.9 (2.0-8.3) x10*3/uL Absolute Nucleated RBC 0.000 (0.0-0.012) X10*3/uL Nucleated RBC % (auto) 0.0 (0.0-0.2) /100WBC Sodium 136 (135-145) mmol/L Potassium 3.5 (3.3-5.1) mmol/L Chloride 99 (96-108) mmol/L Carbon Dioxide 24 (22-29) mmol/L Anion Gap 17 (12-20) BUN 3 L (9-16) mg/dL Creatinine 0.75 (0.5-1.4) mg/dL Estim Creat Clear Calc 110.2 Estimated GFR > 60 Random Glucose 95 (60-115) mg/dL Calcium 9.2 (8.4-10.2) mg/dL Total Bilirubin 0.7 (0.0-1.0) mg/dL AST 22 D (5-37) U/L ALT 15 (0-40) U/L Alkaline Phosphatase 86 (39-117) U/L Total Protein 7.3 (6.5-8.0) g/dL Albumin 4.0 (3.5-5.0) g/dL Stool Occult Blood NEGATIVE (NEGATIVE) Discharge Plan Discharge Clinical Impression: Vomiting Qualifiers: Vomiting type: unspecified Nausea presence: with nausea Qualified Code(s): R11.2 - Nausea with vomiting, unspecified Abdominal pain Qualifiers: Abdominal location: right upper quadrant Qualified Code(s): R10.11 - Right upper quadrant pain Patient Disposition: Home, Self-Care Instructions: Abdominal Pain (ED), Acute Nausea and Vomiting (ED) Additional Instructions: return to ED for any worsening symptoms or concerns no blood in stool labs stable take all your medications as prescribed Prescriptions: No Action ferrous sulfate 300 mg (60 mg iron)/5 mL liquid 300 mg PO DAILY 90 Days Qty: 450 0RF sennosides-docusate sodium [Senna Plus] 8.6-50 mg tablet 2 tab PO BEDTIME Qty: 60 0RF loperamide [Imodium A-D] 2 mg capsule 2 mg PO Q8H PRN (Reason: loose stool) 7 Days Qty: 20 0RF clonidine HCl 0.1 mg Tablet 0.1 mg PO BID Qty: 60 0RF Protocol: Hold for SBP< HOLD for SBP < : 90 famotidine 20 mg Tablet 20 mg PO BID Qty: 60 0RF mirtazapine 15 mg Tablet 15 mg PO BEDTIME Qty: 30 0RF paliperidone [Invega] 6 mg Tablet Extended Release 24 Hr 6 mg PO DAILY Qty: 30 0RF lidocaine [Lidocaine Pain Relief] 4 % Adhesive Patch,Medicated 1 patch transdermal DAILY Qty: 10 0RF Protocol: Apply to: Apply to: chest wall capsaicin 0.025 % Cream 1 appl topical TID Qty: 25 0RF Protocol: Apply to: Apply to: bilat knee ondansetron 4 mg tablet,disintegrating 1 tab PO Q8H PRN (Reason: nausea/vomiting) Qty: 60 0RF terazosin 5 mg capsule 5 mg PO BEDTIME 90 Days Qty: 90 1RF Referrals: [facility] [Primary Care Provider] - 2 days (if not better)
[2021-11-25 01:38] LABS: OBS Int Ctl Valid YES; OBS1 NEGATIVE (NEGATIVE)
[2021-11-25] MEDS: Ondansetron ODT 4 MG TAB.RAPDIS TRANSLINGU (02:12)
[2021-11-25] MEDS: Lidocaine HCl Viscous 2 % 15 ML SOLUTION MUCOUS MEM (02:12)
[2021-11-25] MEDS: Magnesium Hydrox/Alum Hydrox 30 ML ORAL.SUSP 15 ML PO (02:12)
[2021-11-25 02:44] VITALS: BP 117/81; PULSE 69; RESP 16; O2SAT 99
--- NOTE | 2021-11-25 02:49 | PC.NURSE ---
pt awoken for discharge, iv access removed, pt ambulated to bathroom with a steady gait no difficulty
== END 2021-11-25 02:50 | disposition home or self-care (01) ==
PROVIDERS: Emergency Provider Emergency Medicine
DX: R11.2 Nausea with vomiting, unspecified (principal); R10.11 Right upper quadrant pain; F17.210 Nicotine dependence, cigarettes, uncomplicated
CPT/HCPCS: 36415; 80053; 82272; 85025; 99283; 99284

== ENCOUNTER 2021-11-28 09:54 | Outpatient (REF) | payer MEDICAID, SELFPAY ==
--- NOTE | ~2021-11-28 | US_ITS ---
EXAMINATION: US THYROID CLINICAL INFORMATION: Low TSH. COMPARISON: Thyroid ultrasound 08/27/2011. TECHNIQUE: Linear transducer grayscale and color Doppler examination with attention to the region of the thyroid. Technically difficult study secondary to body habitus (low thyroid near suprasternal notch). FINDINGS: SIZE: Measurements of the thyroid lobes and nodules are given in sagittal, anteroposterior and transverse dimensions respectively. Right Thyroid Lobe: 3.1 x 2.0 x 1.3 cm, volume 4.1 mL. Previously 3.4 x 1.7 x 1.5 cm, volume 4.5 mL. Parenchyma: The gland echotexture is homogeneous. Thyroid vascularity is normal. Left Thyroid Lobe: 2.8 x 1.4 x 1.1 cm, volume 2.4 mL. Previously 3.0 x 1.2 x 1.5 cm, volume 2.8 mL. Parenchyma: The gland echotexture is homogeneous. Thyroid vascularity is normal. Isthmus: 0.4 cm in maximum AP dimension. Previously 0.2 cm. No focal thyroid nodule is seen. NODES: No lymphadenopathy is seen in the tissue surrounding the thyroid gland. US/US thyroid IMPRESSION: Small thyroid gland. No nodules seen.
== END 2021-11-28 09:55 | disposition home or self-care (01) ==
LOC: HO.US 09:54
PROVIDERS: Visit Provider Nurse Practitioner Primary Care
DX: R79.89 Other specified abnormal findings of blood chemistry (principal)
CPT/HCPCS: 76536; 99212

== ENCOUNTER → 2021-12-24 10:52 | Outpatient (BNVA) | payer MEDICAID, SELFPAY | PROVIDERS: PCP Internal Medicine; Visit Provider Urology | DX: N40.1 Benign prostatic hyperplasia with lower urinary tract symptoms (principal); N13.8 Other obstructive and reflux uropathy; N52.9 Male erectile dysfunction, unspecified; R33.9 Retention of urine, unspecified | CPT/HCPCS: 51798; 99212 ==

== ENCOUNTER → 2022-01-27 08:43 | Outpatient (BNVA) | payer MEDICAID, SELFPAY | PROVIDERS: PCP Internal Medicine; Visit Provider Physician Assistant | DX: M17.12 Unilateral primary osteoarthritis, left knee (principal) | CPT/HCPCS: 20610; 99212; J1040 ==

== ENCOUNTER → 2022-02-06 11:11 | Outpatient (BNVA) | payer MEDICAID, SELFPAY | PROVIDERS: PCP Internal Medicine; Visit Provider Internal Medicine Endocrinology, Diabetes & Metabolism | DX: R79.89 Other specified abnormal findings of blood chemistry (principal) | CPT/HCPCS: 36415; 84439; 84443; 99202 ==

== ENCOUNTER 2022-02-06 11:53 | Outpatient (REF) | payer MEDICAID, SELFPAY ==
[2022-02-06 14:17] LABS: Free T4 (Free Thyroxine) 0.99 ng/dL (0.71-1.85); Thyroid Stimulating Hormone 0.57 uIU/mL (0.32-4.0)
== END 2022-02-06 11:54 | disposition home or self-care (01) ==
LOC: HO.10HDL 11:53
PROVIDERS: Visit Provider Internal Medicine Endocrinology, Diabetes & Metabolism
DX: R79.89 Other specified abnormal findings of blood chemistry (principal)
CPT/HCPCS: 36415; 84439; 84443

== ENCOUNTER 2022-02-23 07:38 | Emergency (ER) | payer MEDICAID, SELFPAY ==
--- NOTE | ~2022-02-23 | XR_ITS ---
EXAMINATION: XR CHEST CLINICAL INFORMATION: Chest pain COMPARISON: X-ray 09/24/2021 TECHNIQUE: 2 views of the chest were obtained. FINDINGS: Stable cardiac and mediastinal silhouette. Similar mild elevation of the right hemidiaphragm. No focal consolidation, effusion, edema or pneumothorax. Monitoring leads overlie the chest. Posterior spinal fusion hardware in the lumbar spine, partially imaged. No free air under the diaphragms. XR/XR chest 2V IMPRESSION: No evidence of acute pulmonary process.
[2022-02-23 07:49] VITALS: BP 102/70; PULSE 68; O2SAT 99
[2022-02-23 07:50] VITALS: BP 116/64; PULSE 59; RESP 18; TEMP 36.6; O2SAT 98; BMI 27.3
--- NOTE | 2022-02-23 08:07 | ED_ITS ---
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 No diarrhea, constipation, urinary symptoms. No black or bloody stools. No hematemesis. Patient also reports tactile temps for the last 3 days with no reports of cough, runny nose, sore throat. MD elicited complaint: abdominal pain Related Data Home Medications Medication Instructions Recorded Confirmed fluoride (sodium) 1.1 % dental appl PO BEDTIME 12/23/21 02/06/22 cream (SF 5000 Plus) zolpidem 10 mg tablet 10 mg PO BEDTIME PRN insomnia 12/23/21 02/06/22 Previous Rx's Medication Instructions Recorded capsaicin 0.025 % topical cream 1 appl topical TID #25 grams 07/17/21 clonidine HCl 0.1 mg tablet 0.1 mg PO BID #60 tabs 07/17/21 famotidine 20 mg tablet 20 mg PO BID #60 tabs 07/17/21 lidocaine 4 % topical patch 1 patch transdermal DAILY #10 ea 07/17/21 (Lidocaine Pain Relief) mirtazapine 15 mg tablet 15 mg PO BEDTIME #30 tabs 07/17/21 paliperidone 6 mg tablet,extended 6 mg PO DAILY #30 tabs 07/17/21 release 24 hr (Invega) ferrous sulfate 300 mg (60 mg 300 mg (5 mL) PO DAILY 90 days 07/31/21 iron)/5 mL oral liquid #450 mL terazosin 5 mg capsule 5 mg PO BEDTIME 90 days #90 caps 10/17/21 ondansetron 4 mg disintegrating 4 mg PO Q8H PRN nausea/vomiting 30 12/04/21 tablet days #60 tabs bethanechol chloride 50 mg tablet 50 mg PO BID 30 days #60 tabs 12/24/21 sennosides 8.6 mg-docusate sodium 2 tab-cap PO BEDTIME 60 days #120 01/22/22 50 mg tablet (Senna with Docusate tabs Sodium) simethicone 180 mg capsule (Gas 180 mg PO BID PRN abdominal 02/03/22 Relief (simethicone)) distention 30 days #60 caps Allergies Allergy/AdvReac Type Severity Reaction Status Date / Time trazodone [TRAZODONE] Allergy Severe FACIAL Verified 02/06/22 11:23 SWELLING, swelling cat dander [CATS] Allergy Intermediate FACIAL Verified 02/06/22 11:23 ITCHING doxepin [DOXEPIN] Allergy Intermediate WEIGHT Verified 02/06/22 11:23 GAIN/LEG SWELLING Iodinated Contrast Media Allergy Intermediate ITCHING Verified 02/06/22 11:23 [IV DYE, IODINE CONTAINING CONTRAST ] nitroglycerin [NITROGLYCERIN] Allergy Unknown UNKNOWN Verified 02/06/22 11:23 tramadol [TRAMADOL] Allergy Unknown UNKNOWN, Verified 02/06/22 11:23 dry mouth ibuprofen [From MOTRIN] AdvReac Intermediate GI UPSET Verified 02/06/22 11:23 quetiapine [From SEROQUEL] AdvReac Intermediate FACIAL Verified 02/06/22 11:23 SWELLING aspirin [ASPIRIN] AdvReac Mild Stomach Verified 02/06/22 11:23 Upset Ibuprofen Allergy Unknown stomach Uncoded 02/06/22 11:23 ache IV contrast Allergy Unknown Unknown Uncoded 02/06/22 11:23 Motrin Allergy Unknown stomach Uncoded 02/06/22 11:23 pain Review of Systems Review of Systems Yes all other systems are reviewed and are negative Constitutional: Reports no additional constitutional complaints, Denies body ache(s), Denies chills, Reports fever(s), Denies headache(s) and Denies weakness Eyes: Reports no additional eye complaints and Denies change in vision Reports system reviewed and no additional complaints, except as documented, Denies dizziness, Denies headache(s), Denies nasal congestion, Denies nasal discharge and Denies neck pain Cardiovascular: Reports no additional cardiovascular complaints, Reports chest pain, Denies leg edema and Denies dyspnea Respiratory: Reports no additional respiratory complaints, Denies cough and Denies dyspnea Gastrointestinal: Reports no additional gastrointestinal complaints, Reports abdominal pain, Denies diarrhea, Reports nausea and Reports vomiting Genitourinary: Denies urinary incontinence Musculoskeletal: Reports no additional musculoskeletal complaints, Denies back pain, Denies arthralgias, Denies joint swelling, Denies neck pain, Denies numbness and Denies tingling Skin/Breast: Reports system reviewed and no additional complaints, except as docu and Denies rash Reports system reviewed and no additional complaints, except as documented, Denies dizziness, Denies headache(s), Denies numbness, Denies tingling and Denies weakness PMFSH Past Medical History Attestation statement: The following information was validated with the patient. Source: old records reviewed and nursing notes reviewed Medical History Alcohol dependence Anxiety Chest pain Derangement of symphysis pubis Dysphagia GERD (gastroesophageal reflux disease) Low TSH level Major depressive disorder, recurrent severe without psychotic features Opioid abuse Weight loss Surgical History H/O umbilical hernia repair History of colonoscopy History of cystoscopy Family History Family History Father HTN (hypertension) Diabetes Mother HTN (hypertension) Stroke Alzheimer disease Heart disease Social History Social History Household Members: None Housing: Apartment Do you presently have visiting nurse or other home services: No Alcohol intake: unknown Patient Tobacco Use Status: Tobacco use Unknown Tobacco use type: Cigarette Cigarette Packs Per Day: 1 Cigarettes Per Day: 20.0 Years Smoked: 9 e-Cigarette/Vaping Use: Never Used Second Hand Smoke Exposure: No Substance Use Type: Crack/Cocaine and Opiates Advance Directives: No Advance Directives Information Provided: No Advance Directives Date on File: 02/24/20 service: No Current occupational status: unemployed and disabled Sexual orientation: Questioning Physical Exam ED Vital Signs: Vital Signs - 24 hr 02/23/22 07:50 02/23/22 08:15 Temperature 97.8 F 97.8 F Pulse Rate 59 60 Respiratory Rate 18 18 Blood Pressure 116/64 116/64 Pulse Oximetry 98 99 Oxygen Delivery Method Room Air Room Air BMI result Body Mass Index 27.3 Const General: cooperative, healthy appearing, comfortable and no acute distress Orientation/consciousness: patient oriented x3 Limitations: no limitations HENMT Head: Yes normal to inspection Ears: hearing grossly normal bilaterally Eyes General: appearance normal, both eyes and all related structures Pupils: Equal, round and reactive pupils present Neck Neck: Yes normal visual inspection, Yes full ROM, Yes no lymphadenopathy and Yes no meningeal signs Chest Chest palpation & inspection: normal inspection of the chest Resp Effort & Inspection: normal respiratory effort Auscultation: clear to auscultation bilaterally Cardio Rate: regular rate Rhythm: regular rhythm Peripheral pulses: Peripheral pulses 2+ throughout GI Inspection: Yes normal to inspection Palpation (GI): Soft to palpation and Tenderness to palpation present (GI) (Epigastric with no rebound or guarding) Back/Spine/Pelvis Thoracic/Lumbar Spine: thoracic and lumbar spine normal to inspection Skin General skin exam: no rashes or lesions noted Neuro General: patient oriented x3, moves all extremities and no meningeal signs Cranial nerves: Yes Equal, round and reactive pupils present Cognition (Neuro): normal cognition Gait exam (Neuro): Normal gait present Extrem General: Yes normal to inspection Course Course Course Narrative: COVID screen is positive. Patient had symptoms for in 5 to no hypoxia or tachypnea. Lungs are clear. Anticipate discharge home patient able to tolerate p.o. fluids. Due to length of symptoms patient not candidate for Paxlovid. Reevaluation(s) Reevaluation #1: 1030-patient drinking [place]. Plan for discharge home. Reviewed worrisome signs and symptoms of when to return to the emergency room. Comfortable plan for discharge home. Medications Administered Discontinued Medications Generic Name Dose Route Start Last Admin Trade Name Freq PRN Reason Stop Dose Admin Al Hydroxide/Mg Hydroxide 30 ml 02/23/22 08:23 02/23/22 08:34 Magnesium Hydrox/Alum Hydrox 30 Ml Oral.Susp PO 02/23/22 08:24 30 ml ONCE ONE Administration Famotidine 20 mg 02/23/22 08:23 02/23/22 08:33 Famotidine/Pf 20 Mg/2 Ml Vial IVPUSH 02/23/22 08:24 20 mg ONCE ONE Administration Sodium Chloride 1,000 mls @ 999 mls/hr 02/23/22 08:23 02/23/22 10:40 Ns IV 02/23/22 09:23 Infused .Q1H1M STA Infusion Lidocaine HCl 15 ml 02/23/22 08:23 02/23/22 08:33 Lidocaine Hcl Viscous 2 % 15 Ml Solution MUCOUS MEM 02/23/22 08:24 15 ml ONCE ONE Administration Ondansetron HCl 4 mg 02/23/22 08:23 02/23/22 08:33 Ondansetron Hcl 4 Mg/2 Ml Vial IVPUSH 02/23/22 08:24 4 mg ONCE ONE Administration MDM - Abdominal Pain MDM Narrative Medical decision making narrative: 51-year-old male with a history of chronic abdominal and chest pain with multiple ER visits in the past for similar symptoms presents with 2 weeks of upper abdominal pain and chest pain with intermittent vomiting as well as some tactile temps over the last 3 days. Vitals are stable. Patient overall well- appearing. Abdomen soft with some mild tenderness the epigastric but no rebound or guarding. Lungs are clear. Will check labs, UA, chest x-ray, EKG, COVID screen. Will give anti emetic, IV fluids, ppi, GI cocktail Low concern for ACS (EKG unchanged from baseline with negative troponin), aortic dissection (gradual onset of symptoms), pe (no hypoxia, no tachypnea, no pleuritic chest pain, no clinical findings concerning for DVT) pancreatitis Medical Records Attestation: I reviewed the patient's medical records. Lab Data Attestation: I reviewed the patient's lab results. Result diagrams: 02/23/22 08:10 02/23/22 08:10 Labs: Lab Results 02/23/22 02/23/22 02/23/22 Range/Units 08:10 08:10 08:10 WBC 7.3 (4.8-10.8) X10*3/uL RBC 4.02 L (4.60-5.80) X10*6/uL Hgb 12.1 L (14.0-18.0) g/dl Hct 36.7 L (42.0-52.0) % MCV 91.3 (80.0-98.0) fL MCH 30.1 (27.0-33.0) pg MCHC 33.0 (31.0-36.0) g/dl RDW 13.8 (11.0-16.0) % Plt Count 223 (160-400) X10*3/uL MPV 9.7 (9.4-12.4) fL Immature Gran % (Auto) 0.3 (0.0-0.4) % Neut % (Auto) 62.2 (45-73) % Lymph % (Auto) 27.6 (20-40) % [place] % (Auto) 8.5 (2-11) % Eos % (Auto) 1.1 (0-4) % Baso % (Auto) 0.3 (0-2) % Lymph # (Auto) 2.0 (1.2-4.9) X10*3/uL [place] # (Auto) 0.6 (0.1-1.2) X10*3/uL Eos # (Auto) 0.1 (0.0-0.4) X10*3/uL Baso # (Auto) 0.0 (0.0-0.2) X10*3/uL Abs Immat Gran (auto) 0.02 (0.00-0.03) X10*3/uL Absolute Neuts (auto) 4.6 (2.0-8.3) x10*3/uL Absolute Nucleated RBC 0.000 (0.0-0.012) X10*3/uL Nucleated RBC % (auto) 0.0 (0.0-0.2) /100WBC Sodium 140 (135-145) mmol/L Potassium 3.5 (3.3-5.1) mmol/L Chloride 98 (96-108) mmol/L Carbon Dioxide 33 H (22-29) mmol/L Anion Gap 13 (12-20) BUN 9 (9-16) mg/dL Creatinine 1.03 (0.5-1.4) mg/dL Estim Creat Clear Calc 78.2 Estimated GFR > 60 Random Glucose 100 (60-115) mg/dL Calcium 9.0 (8.4-10.2) mg/dL Total Bilirubin 0.4 (0.0-1.0) mg/dL Direct Bilirubin < 0.2 (0.0-0.5) mg/dL AST 27 (5-37) U/L ALT 34 (0-40) U/L Alkaline Phosphatase 60 (39-117) U/L Troponin I High Sens < 3.5 (<3.5-35.0) ng/L Total Protein 6.4 L (6.5-8.0) g/dL Albumin 3.7 (3.5-5.0) g/dL Lipase 10 (8-78) U/L COVID-19 (ERIN) (Negative) COVID-19 Clin Com 02/23/22 Range/Units 08:26 WBC (4.8-10.8) X10*3/uL RBC (4.60-5.80) X10*6/uL Hgb (14.0-18.0) g/dl Hct (42.0-52.0) % MCV (80.0-98.0) fL MCH (27.0-33.0) pg MCHC (31.0-36.0) g/dl RDW (11.0-16.0) % Plt Count (160-400) X10*3/uL MPV (9.4-12.4) fL Immature Gran % (Auto) (0.0-0.4) % Neut % (Auto) (45-73) % Lymph % (Auto) (20-40) % [place] % (Auto) (2-11) % Eos % (Auto) (0-4) % Baso % (Auto) (0-2) % Lymph # (Auto) (1.2-4.9) X10*3/uL [place] # (Auto) (0.1-1.2) X10*3/uL Eos # (Auto) (0.0-0.4) X10*3/uL Baso # (Auto) (0.0-0.2) X10*3/uL Abs Immat Gran (auto) (0.00-0.03) X10*3/uL Absolute Neuts (auto) (2.0-8.3) x10*3/uL Absolute Nucleated RBC (0.0-0.012) X10*3/uL Nucleated RBC % (auto) (0.0-0.2) /100WBC Sodium (135-145) mmol/L Potassium (3.3-5.1) mmol/L Chloride (96-108) mmol/L Carbon Dioxide (22-29) mmol/L Anion Gap (12-20) BUN (9-16) mg/dL Creatinine (0.5-1.4) mg/dL Estim Creat Clear Calc Estimated GFR Random Glucose (60-115) mg/dL Calcium (8.4-10.2) mg/dL Total Bilirubin (0.0-1.0) mg/dL Direct Bilirubin (0.0-0.5) mg/dL AST (5-37) U/L ALT (0-40) U/L Alkaline Phosphatase (39-117) U/L Troponin I High Sens (<3.5-35.0) ng/L Total Protein (6.5-8.0) g/dL Albumin (3.5-5.0) g/dL Lipase (8-78) U/L COVID-19 (ERIN) Positive A (Negative) COVID-19 Clin Com See Note Imaging Data Chest x-ray: Attestation: I personally reviewed and interpreted this imaging study as follows: Radiologist's impression: [address] [address] XRay Report Signed Patient: Jerson Taveras MR#: [id number] : 1970 Acct:[id number] Age/Sex: 51 / M ADM Date: 02/23/22 Loc: .ED Attending Dr: Ordering Physician: Beth Mehta NP Date of Service: 02/23/22 Procedure(s): XR chest 2V Accession Number(s): [id number] cc: Beth Mehta NP~ EXAMINATION: XR CHEST CLINICAL INFORMATION: Chest pain COMPARISON: X-ray 09/24/2021 TECHNIQUE: 2 views of the chest were obtained. FINDINGS: Stable cardiac and mediastinal silhouette. Similar mild elevation of the right hemidiaphragm. No focal consolidation, effusion, edema or pneumothorax. Monitoring leads overlie the chest. Posterior spinal fusion hardware in the lumbar spine, partially imaged. No free air under the diaphragms. XR/XR chest 2V IMPRESSION: No evidence of acute pulmonary process. ECG Data Attestation: I personally reviewed and interpreted this ECG as follows: ECG interpretation date: 02/23/22 ECG interpretation time: 08:30 Interpretation: Sinus bradycardia with rate 59, normal NE, normal QRS, normal QT, T-wave inversions in leads 3 and V1 which is unchanged from previous EKG in September of 2021 Discharge Plan Discharge Clinical Impression: COVID-19 Patient Disposition: Home, Self-Care Instructions: Covid-19 Viral Syndrome and Novel Coronavirus (ED) Hey/Ath, COVID-19 (Coronavirus Disease 2019) (ED) Additional Instructions: Hinds prueba de COVID es positiva. Cuarentena por 5 d?as. [place] Motrin o Tylenol si puede seg?n sea necesario para el dolor o la fiebre Aumentar l?quidos, descansar Seguimiento con ja proveedores ambulatorios Regresar por empeoramiento de los s?ntomas Prescriptions: No Action ferrous sulfate 300 mg (60 mg iron)/5 mL liquid 300 mg PO DAILY 90 Days Qty: 450 0RF ondansetron 4 mg tablet,disintegrating 4 mg PO Q8H PRN (Reason: nausea/vomiting) 30 Days Qty: 60 1RF sennosides-docusate sodium [Senna with Docusate Sodium] 8.6-50 mg tablet 2 tab-cap PO BEDTIME 60 Days Qty: 120 2RF Rx Instructions: Please take every other day at bedtime simethicone [Gas Relief (simethicone)] 180 mg capsule 180 mg PO BID PRN (Reason: abdominal distention) 30 Days Qty: 60 2RF clonidine HCl 0.1 mg Tablet 0.1 mg PO BID Qty: 60 0RF Protocol: Hold for SBP< HOLD for SBP < : 90 famotidine 20 mg Tablet 20 mg PO BID Qty: 60 0RF mirtazapine 15 mg Tablet 15 mg PO BEDTIME Qty: 30 0RF paliperidone [Invega] 6 mg Tablet Extended Release 24 Hr 6 mg PO DAILY Qty: 30 0RF lidocaine [Lidocaine Pain Relief] 4 % Adhesive Patch,Medicated 1 patch transdermal DAILY Qty: 10 0RF Protocol: Apply to: Apply to: chest wall capsaicin 0.025 % Cream 1 appl topical TID Qty: 25 0RF Protocol: Apply to: Apply to: bilat knee terazosin 5 mg capsule 5 mg PO BEDTIME 90 Days Qty: 90 1RF zolpidem 10 mg tablet 10 mg PO BEDTIME PRN (Reason: insomnia) fluoride (sodium) [SF 5000 Plus] 1.1 % cream PO BEDTIME bethanechol chloride 50 mg tablet 50 mg PO BID 30 Days Qty: 60 1RF Referrals: Patrick Ly MD [Primary Care Provider] - 1 week (as needed) Interventions: ED Discharge Assessment Last Done: 02/23/22 10:39 Discharge Date/Time: 02/23/22 10:39 Print Language: Yemeni
[2022-02-23 08:15] VITALS: BP 116/64; PULSE 60; RESP 18; TEMP 36.6; O2SAT 99
[2022-02-23 08:17] LABS: MANUAL DIFF FLAG NO
[2022-02-23 08:18] LABS: Basophils Percent Auto 0.3 % (0-2); Eosinophils Absolute Auto 0.1 X10*3/uL (0.0-0.4); Eosinophils Percent Auto 1.1 % (0-4); Hematocrit 36.7 % (42.0-52.0); Hemoglobin 12.1 g/dl (14.0-18.0); Imm Gran Abs Auto 0.02 X10*3/uL (0.00-0.03); Imm Gran Pct Auto 0.3 % (0.0-0.4); Lymphocytes Percent Auto 27.6 % (20-40); Mean Corpuscular Hemoglobin 30.1 pg (27.0-33.0); Mean Corpuscular Volume 91.3 fL (80.0-98.0); Mean Platelet Volume 9.7 fL (9.4-12.4); Monocytes Absolute Auto 0.6 X10*3/uL (0.1-1.2); Monocytes Percent Auto 8.5 % (2-11); Neutrophils Absolute Auto 4.6 x10*3/uL (2.0-8.3); Neutrophils Percent Auto 62.2 % (45-73); Platelet Count 223 X10*3/uL (160-400); Red Blood Count 4.02 X10*6/uL (4.60-5.80); Red Cell Distribution Width 13.8 % (11.0-16.0); White Blood Count 7.3 X10*3/uL (4.8-10.8)
--- NOTE | 2022-02-23 08:18 | PC.NURSE ---
pt alert and oriented x 4. complains of abd and epigastric/chest pain 10/10 and n/v. denies diarrhea. complains of headache, and a sore throat.
--- NOTE | 2022-02-23 08:23 | ECG_ITS ---
Test Reason : CP Blood Pressure : / mmHG Vent. Rate : 058 BPM Atrial Rate : 058 BPM P-R Int : 110 ms QRS Dur : 092 ms QT Int : 470 ms P-R-T Axes : -02 004 010 degrees QTc Int : 461 ms Sinus bradycardia with short AK Minimal voltage criteria for LVH, may be normal variant ( R in aVL ) Borderline ECG When compared with ECG of 24-SEP-2021 06:29, No significant change was found Referred By: Beth Mehta Electronically Signed By:ZOË WALTERS MD
[2022-02-23] MEDS: Lidocaine HCl Viscous 2 % 15 ML SOLUTION MUCOUS MEM (08:33)
[2022-02-23] MEDS: ondansetron HCL 4 MG/2 ML VIAL IVPUSH (08:33)
[2022-02-23] MEDS: Famotidine/PF 20 MG/2 ML VIAL IVPUSH (08:33)
[2022-02-23] MEDS: 0.9 % Sodium Chloride 1,000 ML 999 ML IV (08:34)
[2022-02-23] MEDS: Magnesium Hydrox/Alum Hydrox 30 ML ORAL.SUSP PO (08:34)
[2022-02-23 08:45] LABS: COVID-19 Test Positive (Negative); IDNOW Serial# 55D5AD1C
[2022-02-23 08:46] LABS: Alanine Aminotransferase 34 U/L (0-40); Albumin Level 3.7 g/dL (3.5-5.0); Alkaline Phosphatase 60 U/L (39-117); Anion Gap 13 (12-20); Aspartate Amino Transferase 27 U/L (5-37); Bilirubin Direct < 0.2 mg/dL (0.0-0.5); Bilirubin Total 0.4 mg/dL (0.0-1.0); Blood Urea Nitrogen 9 mg/dL (9-16); Carbon Dioxide 33 mmol/L (22-29); Chloride 98 mmol/L (96-108); Creatinine Clr Calc Pharmacy 78.2; Estimated Glomerular Filt Rate > 60; Glucose Random 100 mg/dL (60-115); Lipase 10 U/L (8-78); Potassium 3.5 mmol/L (3.3-5.1); Sodium 140 mmol/L (135-145); Total Protein 6.4 g/dL (6.5-8.0)
[2022-02-23 08:53] LABS: Troponin-I High Sensitivity < 3.5 ng/L (<3.5-35.0)
--- NOTE | 2022-02-23 09:53 | PC.NURSE ---
pt. resting. says he still feels same. pain 12/14. ask for gingerale
== END 2022-02-23 10:39 | disposition home or self-care (01) ==
PROVIDERS: Nurse Practitioner Family; Emergency Provider Emergency Medicine Emergency Medical Services; PCP Internal Medicine
DX: U07.1 COVID-19 (principal); R07.89 Other chest pain; F17.210 Nicotine dependence, cigarettes, uncomplicated; Z79.899 Other long term (current) drug therapy; Z71.6 Tobacco abuse counseling
CPT/HCPCS: 36415; 71046; 80053; 82248; 83690; 84484; 85025; 87635; 93005; 96374; 96375; 99285; J2405

== ENCOUNTER 2022-02-25 10:26 | Emergency (ER) | payer MEDICAID, SELFPAY ==
[2022-02-25 10:34] VITALS: BP 142/85; BP 145/87; PULSE 93; PULSE 98; RESP 22; TEMP 36.6; O2SAT 98; O2SAT 99; BMI 27.3
--- NOTE | 2022-02-25 11:16 | ED_ITS ---
HPI - Nausea/Vomiting/Diarrhea General Chief complaint: Nausea/Vomiting/Diarrhea Stated complaint: NAUSEA,VOMTING,CHEST WALL PAIN Time Seen by Provider: 02/25/22 10:48 Source: patient Mode of arrival: EMS Limitations: language barrier ( Indonesian-speaking medical practitioners utilized) History of Present Illness HPI Narrative: Patient is a 51-year-old male who presents emergency department via EMS for complaints of chest pain, upper abdominal pain, decreased appetite, nausea and vomiting. He reports symptom onset to be about 12 days ago. He states his symptoms are getting no better and he feels like he is going to . EMS provided patient with Zofran 4 mg IV, he continues to report nausea at this time without any significant improvement. He denies fevers, chills, upper respiratory symptoms, cough, shortness of breath, difficulty breathing, diarrhea, constipation, pain with urination, urinary frequency, numbness or tingling to the extremities. Denies any known sick contacts. Related Data Home Medications Medication Instructions Recorded Confirmed fluoride (sodium) 1.1 % dental appl PO BEDTIME 12/23/21 02/06/22 cream (SF 5000 Plus) zolpidem 10 mg tablet 10 mg PO BEDTIME PRN insomnia 12/23/21 02/06/22 Previous Rx's Medication Instructions Recorded capsaicin 0.025 % topical cream 1 appl topical TID #25 grams 07/17/21 clonidine HCl 0.1 mg tablet 0.1 mg PO BID #60 tabs 07/17/21 famotidine 20 mg tablet 20 mg PO BID #60 tabs 07/17/21 lidocaine 4 % topical patch 1 patch transdermal DAILY #10 ea 07/17/21 (Lidocaine Pain Relief) mirtazapine 15 mg tablet 15 mg PO BEDTIME #30 tabs 07/17/21 paliperidone 6 mg tablet,extended 6 mg PO DAILY #30 tabs 07/17/21 release 24 hr (Invega) ferrous sulfate 300 mg (60 mg 300 mg (5 mL) PO DAILY 90 days 07/31/21 iron)/5 mL oral liquid #450 mL terazosin 5 mg capsule 5 mg PO BEDTIME 90 days #90 caps 10/17/21 ondansetron 4 mg disintegrating 4 mg PO Q8H PRN nausea/vomiting 30 12/04/21 tablet days #60 tabs bethanechol chloride 50 mg tablet 50 mg PO BID 30 days #60 tabs 12/24/21 sennosides 8.6 mg-docusate sodium 2 tab-cap PO BEDTIME 60 days #120 01/22/22 50 mg tablet (Senna with Docusate tabs Sodium) simethicone 180 mg capsule (Gas 180 mg PO BID PRN abdominal 02/03/22 Relief (simethicone)) distention 30 days #60 caps ondansetron 4 mg disintegrating 4 mg PO Q8H PRN nausea and 02/25/22 tablet vomiting #9 tabs Allergies Allergy/AdvReac Type Severity Reaction Status Date / Time trazodone [TRAZODONE] Allergy Severe FACIAL Verified 02/06/22 11:23 SWELLING, swelling cat dander [CATS] Allergy Intermediate FACIAL Verified 02/06/22 11:23 ITCHING doxepin [DOXEPIN] Allergy Intermediate WEIGHT Verified 02/06/22 11:23 GAIN/LEG SWELLING Iodinated Contrast Media Allergy Intermediate ITCHING Verified 02/06/22 11:23 [IV DYE, IODINE CONTAINING CONTRAST ] nitroglycerin [NITROGLYCERIN] Allergy Unknown UNKNOWN Verified 02/06/22 11:23 tramadol [TRAMADOL] Allergy Unknown UNKNOWN, Verified 02/06/22 11:23 dry mouth ibuprofen [From MOTRIN] AdvReac Intermediate GI UPSET Verified 02/06/22 11:23 quetiapine [From SEROQUEL] AdvReac Intermediate FACIAL Verified 02/06/22 11:23 SWELLING aspirin [ASPIRIN] AdvReac Mild Stomach Verified 02/06/22 11:23 Upset Ibuprofen Allergy Unknown stomach Uncoded 02/06/22 11:23 ache IV contrast Allergy Unknown Unknown Uncoded 02/06/22 11:23 Motrin Allergy Unknown stomach Uncoded 02/06/22 11:23 pain Review of Systems Review of Systems: Constitutional : No Weight loss, No Fever, No Chills ENT/Mouth :? No sore throat, No Rhinorrhea Eyes: No Swelling, No Redness Cardiovascular : Positive Chest Pain, No SOB, No Edema Respiratory : No Cough, No Sputum, No Wheezing Gastrointestinal : Positive Nausea, Positive Vomiting, no Diarrhea, positive abdominal pain, No Hematochezia, No Melena Genitourinary : No Dysuria, No Urinary Frequency, No Hematuria, No Urgency? Musculoskeletal : No joint pain, No Myalgias, No Joint Swelling Skin : No Skin Lesions, No rash Neuro : No Weakness, No Numbness, No Dizziness, No Headache Psych : No Anxiety/Panic, No Depression Yes all other systems are reviewed and are negative [facility] Past Medical History Attestation statement: The following information was validated with the patient. Source: old records reviewed Medical History Alcohol dependence Anxiety Chest pain Derangement of symphysis pubis Dysphagia GERD (gastroesophageal reflux disease) Low TSH level Major depressive disorder, recurrent severe without psychotic features Opioid abuse Weight loss Surgical History H/O umbilical hernia repair History of colonoscopy History of cystoscopy Family History Family History Father HTN (hypertension) Diabetes Mother HTN (hypertension) Stroke Alzheimer disease Heart disease Social History Social History Household Members: None Housing: Apartment Do you presently have visiting nurse or other home services: No Alcohol intake: never Patient Tobacco Use Status: Tobacco use Unknown Tobacco use type: Cigarette Cigarette Packs Per Day: 1 Cigarettes Per Day: 20.0 Years Smoked: 9 Smoked in Last 30 Days: No e-Cigarette/Vaping Use: Never Used Second Hand Smoke Exposure: No Use of substances other than those prescribed or required for medical reasons: No Substance Use Type: Crack/Cocaine and Opiates Advance Directives: Yes Advance Directives on File: Yes Advance Directives Date on File: 02/24/20 service: No Current occupational status: unemployed and disabled Sexual orientation: Questioning Physical Exam Vital Signs: Vital Signs: Last Vital Signs Temp 98 F 02/25/22 15:10 Pulse 85 02/25/22 15:10 Resp 14 02/25/22 15:10 BP 146/79 H 02/25/22 15:10 Pulse Ox 96 02/25/22 15:10 O2 Del Method 02/25/22 15:10 BMI result Body Mass Index 27.3 Appearance: Alert.?Oriented to person, place and time. No acute dis tress.?Normal affect. Eyes: Pupils equal, round and reactive to light.? ENT: Pharynx normal.?? Neck: Normal inspection.? Neck supple.?? CVS: Heart sounds normal. Normal heart rate and rhythm.? Pulses normal.?? Respiratory: No respiratory distress.? Lung sounds clear to auscultation bilaterally?? Abdomen: Soft with epigastric tenderness. Negative Gordon sign. Negative Rovsing sign, negative obturator's sign, negative psoas sign. No rebound Tenderness. No guarding. Normoactive bowel sounds. ? Skin: Skin warm and dry.? Normal skin color.? Extremities: No lower extremity edema.? Neuro: Moves all extremities spontaneously. Sensation intact bilaterally. No focal neuro deficits. Ambulates with normal steady gait. Course Course Course Narrative: Patient is a 51-year-old male with a past medical history of alcohol dependence, anxiety, dysphagia, GERD, depression, opiate use, chronic abdominal and chest pain presenting to the emergency department today for evaluation of ABD pain, chest pain, decreased appetite with nausea and vomiting over the past 12 days. Of note patient was seen in the emergency department 2 days ago for the same complaints. Have labs obtained, urinalysis, chest x-ray, EKG all of which was overall unremarkable. He was given IV fluids PPI antiemetic and a GI cocktail. Was found to be COVID-19 positive and was discharged home. Will obtain CBC to evaluate for leukocytosis/ anemia, CMP and lipase to evaluate for abnormal electrolytes /abnormal renal function/ abnormal hepatic/biliary function, EKG and troponin to evaluate for ischemia/ACS. patient received 1 L normal saline IV fluid, Reglan IV, and famotidine IV. Disposition pending results. At this time, low suspicion for ACS given symptoms; low suspicion for aortic dissection; PERC negative, no hypoxia, tachypnea, pleuritic chest pain, no history of DVT/ PE. Reevaluation(s) Reevaluation #1: CBC reveals a normocytic anemia consistent with baseline. CMP is overall unremarkable. Troponin <3.5, EKG reveals a normal sinus rhythm without acute ischemic findings. Pain unlikely secondary to ACS. abdominal examination is ove rall benign. Provided with something to eat and drink, and patient tolerated well. Advised plan of care for discharge home, rest, Tylenol/ Motrin as needed for pain, will send for Zofran to use as needed for nausea. Discussed worsening signs symptoms return back to emergency department for. All questions answered. Discharged in stable condition. Time: 16:23 Medications Administered Discontinued Medications Generic Name Dose Route Start Last Admin Trade Name Farzana PRN Reason Stop Dose Admin Famotidine 20 mg 02/25/22 11:33 02/25/22 11:56 Famotidine/Pf 20 Mg/2 Ml Vial IVPUSH 02/25/22 11:34 20 mg ONCE ONE Administration Sodium Chloride 1,000 mls @ 999 mls/hr 02/25/22 11:45 02/25/22 11:56 Ns IV 02/25/22 12:45 999 mls/hr .Q1H1M JAMES Administration Metoclopramide HCl 10 mg 02/25/22 11:35 02/25/22 11:56 Metoclopramide Hcl 10 Mg/2 Ml Vial IVPUSH 02/25/22 11:36 10 mg ONCE ONE Administration MDM - Nausea/Vomiting/Diarrhea Medical Records Attestation: I reviewed the patient's medical records. Lab Data Attestation: I reviewed the patient's lab results. Result diagrams: 02/25/22 11:44 02/25/22 11:44 Labs: Lab Results 02/25/22 02/25/22 02/25/22 Range/Units 11:44 11:44 11:44 WBC 7.0 (4.8-10.8) X10*3/uL RBC 3.94 L (4.60-5.80) X10*6/uL Hgb 11.8 L (14.0-18.0) g/dl Hct 35.7 L (42.0-52.0) % MCV 90.6 (80.0-98.0) fL MCH 29.9 (27.0-33.0) pg MCHC 33.1 (31.0-36.0) g/dl RDW 14.1 (11.0-16.0) % Plt Count 225 (160-400) X10*3/uL MPV 9.7 (9.4-12.4) fL Immature Gran % (Auto) 0.6 H (0.0-0.4) % Neut % (Auto) 67.7 (45-73) % Lymph % (Auto) 23.8 (20-40) % [place] % (Auto) 6.9 (2-11) % Eos % (Auto) 0.7 (0-4) % Baso % (Auto) 0.3 (0-2) % Lymph # (Auto) 1.7 (1.2-4.9) X10*3/uL [place] # (Auto) 0.5 (0.1-1.2) X10*3/uL Eos # (Auto) 0.1 (0.0-0.4) X10*3/uL Baso # (Auto) 0.0 (0.0-0.2) X10*3/uL Abs Immat Gran (auto) 0.04 H (0.00-0.03) X10*3/uL Absolute Neuts (auto) 4.7 (2.0-8.3) x10*3/uL Absolute Nucleated RBC 0.000 (0.0-0.012) X10*3/uL Nucleated RBC % (auto) 0.0 (0.0-0.2) /100WBC Sodium 139 (135-145) mmol/L Potassium 3.6 (3.3-5.1) mmol/L Chloride 102 (96-108) mmol/L Carbon Dioxide 27 (22-29) mmol/L Anion Gap 14 (12-20) BUN 9 D (9-16) mg/dL Creatinine 0.76 (0.5-1.4) mg/dL Estim Creat Clear Calc 106.1 Estimated GFR > 60 Random Glucose 106 (60-115) mg/dL Calcium 8.8 (8.4-10.2) mg/dL Total Bilirubin 0.3 (0.0-1.0) mg/dL AST 18 (5-37) U/L ALT 26 (0-40) U/L Alkaline Phosphatase 60 D (39-117) U/L Troponin I High Sens < 3.5 (<3.5-35.0) ng/L Total Protein 6.3 L (6.5-8.0) g/dL Albumin 3.7 (3.5-5.0) g/dL Lipase 7 L (8-78) U/L Urine Color Urine Appearance Urine pH (5.0-9.0) Ur Specific [place] (1.005-1.025) Urine Protein (Neg-Trace) mg/dL Urine Glucose (UA) (Negative) mg/dL Urine Ketones (Negative) mg/dL Urine Blood (Negative) Urine Nitrite (Negative) Ur Leukocyte Esterase (Negative) 02/25/22 Range/Units 15:14 WBC (4.8-10.8) X10*3/uL RBC (4.60-5.80) X10*6/uL Hgb (14.0-18.0) g/dl Hct (42.0-52.0) % MCV (80.0-98.0) fL MCH (27.0-33.0) pg MCHC (31.0-36.0) g/dl RDW (11.0-16.0) % Plt Count (160-400) X10*3/uL MPV (9.4-12.4) fL Immature Gran % (Auto) (0.0-0.4) % Neut % (Auto) (45-73) % Lymph % (Auto) (20-40) % [place] % (Auto) (2-11) % Eos % (Auto) (0-4) % Baso % (Auto) (0-2) % Lymph # (Auto) (1.2-4.9) X10*3/uL [place] # (Auto) (0.1-1.2) X10*3/uL Eos # (Auto) (0.0-0.4) X10*3/uL Baso # (Auto) (0.0-0.2) X10*3/uL Abs Immat Gran (auto) (0.00-0.03) X10*3/uL Absolute Neuts (auto) (2.0-8.3) x10*3/uL Absolute Nucleated RBC (0.0-0.012) X10*3/uL Nucleated RBC % (auto) (0.0-0.2) /100WBC Sodium (135-145) mmol/L Potassium (3.3-5.1) mmol/L Chloride (96-108) mmol/L Carbon Dioxide (22-29) mmol/L Anion Gap (12-20) BUN (9-16) mg/dL Creatinine (0.5-1.4) mg/dL Estim Creat Clear Calc Estimated GFR Random Glucose (60-115) mg/dL Calcium (8.4-10.2) mg/dL Total Bilirubin (0.0-1.0) mg/dL AST (5-37) U/L ALT (0-40) U/L Alkaline Phosphatase (39-117) U/L Troponin I High Sens (<3.5-35.0) ng/L Total Protein (6.5-8.0) g/dL Albumin (3.5-5.0) g/dL Lipase (8-78) U/L Urine Color Yellow Urine Appearance Clear Urine pH 8.0 (5.0-9.0) Ur Specific [place] 1.010 (1.005-1.025) Urine Protein Negative (Neg-Trace) mg/dL Urine Glucose (UA) Negative (Negative) mg/dL Urine Ketones Negative (Negative) mg/dL Urine Blood Negative (Negative) Urine Nitrite Negative (Negative) Ur Leukocyte Esterase Negative (Negative) ECG Data Attestation: I personally reviewed and interpreted this ECG as follows: ECG interpretation date: 02/25/22 Interpretation: Rate: 90 Rhythm:? normal sinus rhythm Bells:? normal Normal P waves.? Normal ELLEN.?? Normal QRS complex.?? ST T wave :?? no ST elevation, no ST depression, no T-wave inversion qTC: 455 prior studies:? February 2022 The study has been interpreted contemporaneously by me. Discharge Plan Discharge Clinical Impression: COVID-19, Nausea & vomiting Patient Disposition: Home, Self-Care Instructions: Acute Nausea and Vomiting (ED), COVID-19 (Coronavirus Disease 2019) (ED) Additional Instructions: Be sure to rest, drink plenty of fluids. Self isolate as you are contagious. You can take ibuprofen 200 mg, 3 tablets (600mg) every 6-8 hours as needed for pain, in addition to Tylenol 500 mg, 2 tablets (1,000mg) every 4-6 hours as needed for pain, but not to exceed 3 doses daily (3,000mg).? Take Zofran as needed every 8 hours for nausea follow-up with your primary care provider return to the emergency department any new or worsening symptoms or concerns. Prescriptions: New ondansetron 4 mg tablet,disintegrating 4 mg PO Q8H PRN (Reason: nausea and vomiting) Qty: 9 0RF No Action ferrous sulfate 300 mg (60 mg iron)/5 mL liquid 300 mg PO DAILY 90 Days Qty: 450 0RF ondansetron 4 mg tablet,disintegrating 4 mg PO Q8H PRN (Reason: nausea/vomiting) 30 Days Qty: 60 1RF sennosides-docusate sodium [Senna with Docusate Sodium] 8.6-50 mg tablet 2 tab-cap PO BEDTIME 60 Days Qty: 120 2RF Rx Instructions: Please take every other day at bedtime simethicone [Gas Relief (simethicone)] 180 mg capsule 180 mg PO BID PRN (Reason: abdominal distention) 30 Days Qty: 60 2RF clonidine HCl 0.1 mg Tablet 0.1 mg PO BID Qty: 60 0RF Protocol: Hold for SBP< HOLD for SBP < : 90 famotidine 20 mg Tablet 20 mg PO BID Qty: 60 0RF mirtazapine 15 mg Tablet 15 mg PO BEDTIME Qty: 30 0RF paliperidone [Invega] 6 mg Tablet Extended Release 24 Hr 6 mg PO DAILY Qty: 30 0RF lidocaine [Lidocaine Pain Relief] 4 % Adhesive Patch,Medicated 1 patch transdermal DAILY Qty: 10 0RF Protocol: Apply to: Apply to: chest wall capsaicin 0.025 % Cream 1 appl topical TID Qty: 25 0RF Protocol: Apply to: Apply to: bilat knee terazosin 5 mg capsule 5 mg PO BEDTIME 90 Days Qty: 90 1RF zolpidem 10 mg tablet 10 mg PO BEDTIME PRN (Reason: insomnia) fluoride (sodium) [SF 5000 Plus] 1.1 % cream PO BEDTIME bethanechol chloride 50 mg tablet 50 mg PO BID 30 Days Qty: 60 1RF Referrals: Patrick Ly MD [Primary Care Provider] - Interventions: ED Discharge Assessment Last Done: 02/25/22 18:03 Discharge Date/Time: 02/25/22 18:03
--- NOTE | 2022-02-25 11:37 | ECG_ITS ---
Test Reason : CHEST PAIN Blood Pressure : / mmHG Vent. Rate : 090 BPM Atrial Rate : 090 BPM P-R Int : 130 ms QRS Dur : 082 ms QT Int : 372 ms P-R-T Axes : 023 005 022 degrees QTc Int : 455 ms Normal sinus rhythm Minimal voltage criteria for LVH, may be normal variant ( R in aVL ) Borderline ECG When compared with ECG of 23-FEB-2022 08:29, Vent. rate has increased BY 32 BPM Referred By: Jenna Feliciano Electronically Signed By:ZOË WALTERS MD
[2022-02-25 11:49] LABS: MANUAL DIFF FLAG NO
[2022-02-25] MEDS: 0.9 % Sodium Chloride 1,000 ML 999 ML IV (11:56)
[2022-02-25] MEDS: Famotidine/PF 20 MG/2 ML VIAL IVPUSH (11:56)
[2022-02-25] MEDS: Metoclopramide HCl 10 MG/2 ML VIAL IVPUSH (11:56)
[2022-02-25 11:59] LABS: Basophils Percent Auto 0.3 % (0-2); Eosinophils Absolute Auto 0.1 X10*3/uL (0.0-0.4); Eosinophils Percent Auto 0.7 % (0-4); Hematocrit 35.7 % (42.0-52.0); Hemoglobin 11.8 g/dl (14.0-18.0); Imm Gran Abs Auto 0.04 X10*3/uL (0.00-0.03); Imm Gran Pct Auto 0.6 % (0.0-0.4); Lymphocytes Absolute Auto 1.7 X10*3/uL (1.2-4.9); Lymphocytes Percent Auto 23.8 % (20-40); Mean Corpuscular HGB Conc 33.1 g/dl (31.0-36.0); Mean Corpuscular Hemoglobin 29.9 pg (27.0-33.0); Mean Corpuscular Volume 90.6 fL (80.0-98.0); Mean Platelet Volume 9.7 fL (9.4-12.4); Monocytes Absolute Auto 0.5 X10*3/uL (0.1-1.2); Monocytes Percent Auto 6.9 % (2-11); Neutrophils Absolute Auto 4.7 x10*3/uL (2.0-8.3); Neutrophils Percent Auto 67.7 % (45-73); Platelet Count 225 X10*3/uL (160-400); Red Blood Count 3.94 X10*6/uL (4.60-5.80); Red Cell Distribution Width 14.1 % (11.0-16.0)
[2022-02-25 12:10] LABS: Alanine Aminotransferase 26 U/L (0-40); Albumin Level 3.7 g/dL (3.5-5.0); Alkaline Phosphatase 60 U/L (39-117); Anion Gap 14 (12-20); Aspartate Amino Transferase 18 U/L (5-37); Bilirubin Total 0.3 mg/dL (0.0-1.0); Blood Urea Nitrogen 9 mg/dL (9-16); Calcium 8.8 mg/dL (8.4-10.2); Carbon Dioxide 27 mmol/L (22-29); Chloride 102 mmol/L (96-108); Creatinine Clr Calc Pharmacy 106.1; Estimated Glomerular Filt Rate > 60; Glucose Random 106 mg/dL (60-115); Lipase 7 U/L (8-78); Potassium 3.6 mmol/L (3.3-5.1); Sodium 139 mmol/L (135-145); Total Protein 6.3 g/dL (6.5-8.0)
[2022-02-25 12:16] LABS: Troponin-I High Sensitivity < 3.5 ng/L (<3.5-35.0)
[2022-02-25 15:10] VITALS: BP 146/79; PULSE 85; RESP 14; TEMP 36.6; O2SAT 96
[2022-02-25 17:38] LABS: Appearance Urine Clear; Color Urine Yellow; Glucose Urine UA Negative (Negative); Leukocyte Esterase Urine Negative (Negative); Nitrite Urine Negative (Negative); Urine Blood Negative (Negative); Urine Ketones Negative (Negative); Urine Protein Negative (Neg-Trace)
== END 2022-02-25 18:03 | disposition home or self-care (01) ==
PROVIDERS: Nurse Practitioner Family; Emergency Provider Emergency Medicine; PCP Internal Medicine
DX: U07.1 COVID-19 (principal); R07.89 Other chest pain; R11.2 Nausea with vomiting, unspecified; Z79.899 Other long term (current) drug therapy
CPT/HCPCS: 36415; 80053; 81003; 83690; 84484; 85025; 93005; 96374; 96375; 99284; J2765

== ENCOUNTER → 2022-03-04 10:53 | Outpatient (BNVA) | payer MEDICAID, SELFPAY | PROVIDERS: PCP Internal Medicine; Visit Provider Urology | DX: N40.1 Benign prostatic hyperplasia with lower urinary tract symptoms (principal); R33.9 Retention of urine, unspecified | CPT/HCPCS: 99212 ==

== ENCOUNTER → 2022-03-06 09:03 | Outpatient (BNVA) | payer MEDICAID, SELFPAY | PROVIDERS: PCP Internal Medicine; Visit Provider Physician Assistant | DX: M17.12 Unilateral primary osteoarthritis, left knee (principal) | CPT/HCPCS: 20610; J7323 ==

== ENCOUNTER → 2022-03-13 10:44 | Outpatient (BNVA) | payer MEDICAID, SELFPAY | PROVIDERS: PCP Internal Medicine; Visit Provider Physician Assistant | DX: M17.12 Unilateral primary osteoarthritis, left knee (principal) | CPT/HCPCS: 20610; J7323 ==

== ENCOUNTER → 2022-03-20 09:30 | Outpatient (BNVA) | payer MEDICAID, SELFPAY | PROVIDERS: PCP Internal Medicine; Visit Provider Physician Assistant | DX: M17.12 Unilateral primary osteoarthritis, left knee (principal) | CPT/HCPCS: 20610; J7323 ==

== ENCOUNTER 2022-04-13 18:15 | Emergency (ER) | payer MEDICAID, SELFPAY ==
[2022-04-13 18:21] VITALS: BP 118/63; BP 130/76; PULSE 95; PULSE 96; RESP 18; TEMP 36.6; O2SAT 97; O2SAT 98; BMI 28.9
--- NOTE | 2022-04-13 19:13 | ECG_ITS ---
Test Reason : CHEST PAIN Blood Pressure : / mmHG Vent. Rate : 099 BPM Atrial Rate : 099 BPM P-R Int : 130 ms QRS Dur : 080 ms QT Int : 350 ms P-R-T Axes : 010 -07 016 degrees QTc Int : 449 ms Normal sinus rhythm Minimal voltage criteria for LVH, may be normal variant ( R in aVL ) Borderline ECG When compared with ECG of 25-FEB-2022 11:28, No significant change was found Referred By: Carlos Villagomez Electronically Signed By:Scottie Figueroa
--- NOTE | 2022-04-13 19:23 | ED_ITS ---
HPI - Chest Pain General Chief Complaint: Chest Pain Stated Complaint: sick Time Seen by Provider: 04/13/22 18:32 Source: patient Mode of arrival: EMS Limitations: no limitations History of Present Illness HPI narrative: Patient's history of alcohol use, cocaine use, schizoaffective disorder with multiple body pain comes here for not feeling good for last few days having chest pain for last 2 days having abdominal pain for last 4 days with vomiting also complaining of chronic leg pain. Patient says he is unable to drink or eat anything today because of vomiting , vomited about 7 times today no diarrhea Related Data Home Medications Medication Instructions Recorded Confirmed fluoride (sodium) 1.1 % dental appl PO BEDTIME 12/23/21 03/04/22 cream (SF 5000 Plus) zolpidem 10 mg tablet 10 mg PO BEDTIME PRN insomnia 12/23/21 03/04/22 amitriptyline 25 mg tablet 25 mg PO BEDTIME 03/03/22 03/04/22 atenolol 25 mg tablet 25 mg PO QAM 03/03/22 03/04/22 hydroxyzine HCl 50 mg tablet 50 mg PO QID PRN anxiety 03/03/22 03/04/22 melatonin 5 mg tablet 10 mg PO BEDTIME 03/03/22 03/04/22 omeprazole 20 mg capsule,delayed 20 mg PO DAILY 03/03/22 03/04/22 release Previous Rx's Medication Instructions Recorded capsaicin 0.025 % topical cream 1 appl topical TID #25 grams 07/17/21 clonidine HCl 0.1 mg tablet 0.1 mg PO BID #60 tabs 07/17/21 famotidine 20 mg tablet 20 mg PO BID #60 tabs 07/17/21 lidocaine 4 % topical patch 1 patch transdermal DAILY #10 ea 07/17/21 (Lidocaine Pain Relief) mirtazapine 15 mg tablet 15 mg PO BEDTIME #30 tabs 07/17/21 paliperidone 6 mg tablet,extended 6 mg PO DAILY #30 tabs 07/17/21 release 24 hr (Invega) ferrous sulfate 300 mg (60 mg 300 mg (5 mL) PO DAILY 90 days 07/31/21 iron)/5 mL oral liquid #450 mL ondansetron 4 mg disintegrating 4 mg PO Q8H PRN nausea/vomiting 30 12/04/21 tablet days #60 tabs sennosides 8.6 mg-docusate sodium 2 tab-cap PO BEDTIME 60 days #120 01/22/22 50 mg tablet (Senna with Docusate tabs Sodium) simethicone 180 mg capsule (Gas 180 mg PO BID PRN abdominal 02/03/22 Relief (simethicone)) distention 30 days #60 caps ondansetron 4 mg disintegrating 4 mg PO Q8H PRN nausea and 02/25/22 tablet vomiting #9 tabs bethanechol chloride 50 mg tablet 50 mg PO BID 90 days #180 tabs 03/04/22 terazosin 5 mg capsule 5 mg PO BEDTIME 90 days #90 caps 03/04/22 oxycodone 5 mg tablet 5 mg PO Q6H PRN pain #20 tabs 04/13/22 Allergies Allergy/AdvReac Type Severity Reaction Status Date / Time trazodone [TRAZODONE] Allergy Severe FACIAL Verified 03/20/22 09:35 SWELLING, swelling cat dander [CATS] Allergy Intermediate FACIAL Verified 03/20/22 09:35 ITCHING doxepin [DOXEPIN] Allergy Intermediate WEIGHT Verified 03/20/22 09:35 GAIN/LEG SWELLING Iodinated Contrast Media Allergy Intermediate ITCHING Verified 03/20/22 09:35 [IV DYE, IODINE CONTAINING CONTRAST ] nitroglycerin [NITROGLYCERIN] Allergy Unknown UNKNOWN Verified 03/20/22 09:35 tramadol [TRAMADOL] Allergy Unknown UNKNOWN, Verified 03/20/22 09:35 dry mouth ibuprofen [From MOTRIN] AdvReac Intermediate GI UPSET Verified 03/20/22 09:35 quetiapine [From SEROQUEL] AdvReac Intermediate FACIAL Verified 03/20/22 09:35 SWELLING aspirin [ASPIRIN] AdvReac Mild Stomach Verified 03/20/22 09:35 Upset Ibuprofen Allergy Unknown stomach Uncoded 03/06/22 09:16 ache IV contrast Allergy Unknown Unknown Uncoded 03/06/22 09:16 Motrin Allergy Unknown stomach Uncoded 03/06/22 09:16 pain Review of Systems Review of Systems: Yes all other systems are reviewed and are negative [facility] Past Medical History Medical History Alcohol dependence Anxiety Chest pain Derangement of symphysis pubis Dysphagia GERD (gastroesophageal reflux disease) Low TSH level Major depressive disorder, recurrent severe without psychotic features Opioid abuse Weight loss Surgical History H/O umbilical hernia repair History of colonoscopy History of cystoscopy Family History Family History Father HTN (hypertension) Diabetes Mother HTN (hypertension) Stroke Alzheimer disease Heart disease Social History Social History Household Members: None Housing: Apartment Do you presently have visiting nurse or other home services: No Alcohol intake: never Patient Tobacco Use Status: Tobacco use Unknown Tobacco use type: Cigarette Cigarette Packs Per Day: 1 Cigarettes Per Day: 20.0 Years Smoked: 9 e-Cigarette/Vaping Use: Never Used Second Hand Smoke Exposure: No Substance Use Type: Crack/Cocaine and Opiates Advance Directives: Yes Advance Directives on File: Yes Advance Directives Date on File: 02/24/20 service: No Current occupational status: unemployed and disabled Sexual orientation: Questioning Physical Exam Vital Signs: Vital Signs: Last Vital Signs Temp 97.9 F 04/13/22 18:21 Pulse 96 04/13/22 18:21 Resp 18 04/13/22 18:21 BP 118/63 04/13/22 18:21 Pulse Ox 97 04/13/22 18:21 O2 Del Method 04/13/22 18:21 BMI result Body Mass Index 28.9 Appearance: Alert. Oriented X3. No acute distress. Eyes: PERRLA, No Nystagmus ENT: Pharynx normal. Oral Mucosa moist Neck: Normal inspection. Neck supple. CVS: Normal heart rate and rhythm. Pulses normal. Respiratory: No respiratory distress. Equal air entry bilateral, no wheezing/rales/rhonchi Abdomen: Soft and nontender. Bowel sounds are present, no mass palpable, no CVA tenderness Skin: Skin warm and dry. Normal skin color. Normal skin turgor. Extremities: No lower extremity edema. No calf tenderness Neuro: Oriented X 3. No motor deficit. No sensory deficit.No cerebellar signs , cranial nerves II-XII intact Medications Administered Discontinued Medications Generic Name Dose Route Start Last Admin Trade Name Freq PRN Reason Stop Dose Admin Sodium Chloride 1,000 mls @ 999 mls/hr 04/13/22 19:21 04/13/22 21:25 Ns IV 04/13/22 20:21 Infused .Q1H1M ONE Infusion Morphine Sulfate 4 mg 04/13/22 19:21 04/13/22 19:52 Morphine Sulfate 4 Mg/Ml Cartridge IVPUSH 04/13/22 19:22 4 mg ONCE ONE Administration Protocol Ondansetron HCl 4 mg 04/13/22 19:21 04/13/22 19:51 Ondansetron Hcl 4 Mg/2 Ml Vial IVPUSH 04/13/22 19:22 4 mg ONCE ONE Administration Medical Decision Making Medical Decision Making [facility] Narrative: Patient multiple complaints with atypical chest pain workup negative feeling much better been here multiple times for similar complaints discharge patient home Lab Data [facility] Lab Attestation statement: I reviewed the patient's lab results. 04/13/22 19:50 04/13/22 19:50 Labs: Lab Results 04/13/22 04/13/22 04/13/22 Range/Units 19:50 19:50 19:50 WBC 8.0 (4.8-10.8) X10*3/uL RBC 3.99 L (4.60-5.80) X10*6/uL Hgb 11.8 L (14.0-18.0) g/dl Hct 35.8 L (42.0-52.0) % MCV 89.7 (80.0-98.0) fL MCH 29.6 (27.0-33.0) pg MCHC 33.0 (31.0-36.0) g/dl RDW 14.7 (11.0-16.0) % Plt Count 217 (160-400) X10*3/uL MPV 9.5 (9.4-12.4) fL Immature Gran % (Auto) 0.5 H (0.0-0.4) % Neut % (Auto) 52.9 (45-73) % Lymph % (Auto) 35.2 (20-40) % [place] % (Auto) 7.4 (2-11) % Eos % (Auto) 3.4 (0-4) % Baso % (Auto) 0.6 (0-2) % Lymph # (Auto) 2.8 (1.2-4.9) X10*3/uL [place] # (Auto) 0.6 (0.1-1.2) X10*3/uL Eos # (Auto) 0.3 (0.0-0.4) X10*3/uL Baso # (Auto) 0.1 (0.0-0.2) X10*3/uL Abs Immat Gran (auto) 0.04 H (0.00-0.03) X10*3/uL Absolute Neuts (auto) 4.2 (2.0-8.3) x10*3/uL Absolute Nucleated RBC 0.000 (0.0-0.012) X10*3/uL Nucleated RBC % (auto) 0.0 (0.0-0.2) /100WBC Sodium 139 (135-145) mmol/L Potassium 4.1 (3.3-5.1) mmol/L Chloride 102 (96-108) mmol/L Carbon Dioxide 28 (22-29) mmol/L Anion Gap 13 (12-20) BUN 9 (9-16) mg/dL Creatinine 0.76 (0.5-1.4) mg/dL Estim Creat Clear Calc 107.6 Estimated GFR > 60 Random Glucose 89 (60-115) mg/dL Calcium 8.9 (8.4-10.2) mg/dL Magnesium 1.9 (1.6-2.6) mg/dL Total Bilirubin < 0.2 (0.0-1.0) mg/dL AST 24 (5-37) U/L ALT 19 (0-40) U/L Alkaline Phosphatase 69 (39-117) U/L Troponin I High Sens < 3.5 (<3.5-35.0) ng/L Total Protein 6.5 (6.5-8.0) g/dL Albumin 3.7 (3.5-5.0) g/dL Lipase 9 (8-78) U/L COVID-19 (ERIN) (Negative) COVID-19 Clin Com 04/13/22 Range/Units 19:50 WBC (4.8-10.8) X10*3/uL RBC (4.60-5.80) X10*6/uL Hgb (14.0-18.0) g/dl Hct (42.0-52.0) % MCV (80.0-98.0) fL MCH (27.0-33.0) pg MCHC (31.0-36.0) g/dl RDW (11.0-16.0) % Plt Count (160-400) X10*3/uL MPV (9.4-12.4) fL Immature Gran % (Auto) (0.0-0.4) % Neut % (Auto) (45-73) % Lymph % (Auto) (20-40) % [place] % (Auto) (2-11) % Eos % (Auto) (0-4) % Baso % (Auto) (0-2) % Lymph # (Auto) (1.2-4.9) X10*3/uL [place] # (Auto) (0.1-1.2) X10*3/uL Eos # (Auto) (0.0-0.4) X10*3/uL Baso # (Auto) (0.0-0.2) X10*3/uL Abs Immat Gran (auto) (0.00-0.03) X10*3/uL Absolute Neuts (auto) (2.0-8.3) x10*3/uL Absolute Nucleated RBC (0.0-0.012) X10*3/uL Nucleated RBC % (auto) (0.0-0.2) /100WBC Sodium (135-145) mmol/L Potassium (3.3-5.1) mmol/L Chloride (96-108) mmol/L Carbon Dioxide (22-29) mmol/L Anion Gap (12-20) BUN (9-16) mg/dL Creatinine (0.5-1.4) mg/dL Estim Creat Clear Calc Estimated GFR Random Glucose (60-115) mg/dL Calcium (8.4-10.2) mg/dL Magnesium (1.6-2.6) mg/dL Total Bilirubin (0.0-1.0) mg/dL AST (5-37) U/L ALT (0-40) U/L Alkaline Phosphatase (39-117) U/L Troponin I High Sens (<3.5-35.0) ng/L Total Protein (6.5-8.0) g/dL Albumin (3.5-5.0) g/dL Lipase (8-78) U/L COVID-19 (ERIN) Negative (Negative) COVID-19 Clin Com See Note Independent Interpretation I performed an independent interpretation of an: EKG Interpretation: Some sinus rhythm heart rate 99 beats per minute LVH no acute ST-T changes no acute ischemia Discharge Plan Discharge Clinical Impression: Atypical chest pain, Chronic pain disorder Patient Disposition: Home, Self-Care Instructions: Chest Pain (ED), Chronic Pain (ED) Additional Instructions: Taking medication as prescribed and follow with PCP Prescriptions: New oxycodone 5 mg tablet 5 mg PO Q6H PRN (Reason: pain) Qty: 20 0RF Rx Instructions: Partial Fill upon patient request. No Action ferrous sulfate 300 mg (60 mg iron)/5 mL liquid 300 mg PO DAILY 90 Days Qty: 450 0RF ondansetron 4 mg tablet,disintegrating 4 mg PO Q8H PRN (Reason: nausea/vomiting) 30 Days Qty: 60 1RF sennosides-docusate sodium [Senna with Docusate Sodium] 8.6-50 mg tablet 2 tab-cap PO BEDTIME 60 Days Qty: 120 2RF Rx Instructions: Please take every other day at bedtime simethicone [Gas Relief (simethicone)] 180 mg capsule 180 mg PO BID PRN (Reason: abdominal distention) 30 Days Qty: 60 2RF clonidine HCl 0.1 mg Tablet 0.1 mg PO BID Qty: 60 0RF Protocol: Hold for SBP< HOLD for SBP < : 90 famotidine 20 mg Tablet 20 mg PO BID Qty: 60 0RF mirtazapine 15 mg Tablet 15 mg PO BEDTIME Qty: 30 0RF paliperidone [Invega] 6 mg Tablet Extended Release 24 Hr 6 mg PO DAILY Qty: 30 0RF lidocaine [Lidocaine Pain Relief] 4 % Adhesive Patch,Medicated 1 patch transdermal DAILY Qty: 10 0RF Protocol: Apply to: Apply to: chest wall capsaicin 0.025 % Cream 1 appl topical TID Qty: 25 0RF Protocol: Apply to: Apply to: bilat knee ondansetron 4 mg tablet,disintegrating 4 mg PO Q8H PRN (Reason: nausea and vomiting) Qty: 9 0RF zolpidem 10 mg tablet 10 mg PO BEDTIME PRN (Reason: insomnia) fluoride (sodium) [SF 5000 Plus] 1.1 % cream PO BEDTIME amitriptyline 25 mg tablet 25 mg PO BEDTIME hydroxyzine HCl 50 mg tablet 50 mg PO QID PRN (Reason: anxiety) omeprazole 20 mg capsule,delayed release(DR/EC) 20 mg PO DAILY atenolol 25 mg tablet 25 mg PO QAM melatonin 5 mg tablet 10 mg PO BEDTIME naproxen 500 mg tablet 500 mg PO ONCE Qty: 1 0RF nitrofurantoin monohyd/m-cryst 100 mg capsule 100 mg PO ONCE Qty: 1 0RF lidocaine HCl 2 % jelly in applicator 10 ml intra-urethral ONCE Qty: 10 0RF bethanechol chloride 50 mg tablet 50 mg PO BID 90 Days Qty: 180 1RF terazosin 5 mg capsule 5 mg PO BEDTIME 90 Days Qty: 90 1RF Interventions: ED Discharge Assessment Last Done: 04/13/22 21:38 Discharge Date/Time: 04/13/22 21:39
[2022-04-13] MEDS: ondansetron HCL 4 MG/2 ML VIAL IVPUSH (19:51)
[2022-04-13] MEDS: 0.9 % Sodium Chloride 1,000 ML 999 ML IV (19:51)
[2022-04-13] MEDS: Morphine Sulfate 4 MG/ML CARTRIDGE IVPUSH (19:52)
--- NOTE | 2022-04-13 19:58 | PC.NURSE ---
Patient put on child monitor again had applied when arrived. came back in room he had removed child monitor. verna: sinus rythym Patient c/o nausea and 8/10 chest pain medicated with morphine and zofran.
[2022-04-13 20:05] LABS: MANUAL DIFF FLAG NO
[2022-04-13 20:07] LABS: Basophils Absolute Auto 0.1 X10*3/uL (0.0-0.2); Basophils Percent Auto 0.6 % (0-2); Eosinophils Absolute Auto 0.3 X10*3/uL (0.0-0.4); Eosinophils Percent Auto 3.4 % (0-4); Hematocrit 35.8 % (42.0-52.0); Hemoglobin 11.8 g/dl (14.0-18.0); Imm Gran Abs Auto 0.04 X10*3/uL (0.00-0.03); Imm Gran Pct Auto 0.5 % (0.0-0.4); Lymphocytes Absolute Auto 2.8 X10*3/uL (1.2-4.9); Lymphocytes Percent Auto 35.2 % (20-40); Mean Corpuscular Hemoglobin 29.6 pg (27.0-33.0); Mean Corpuscular Volume 89.7 fL (80.0-98.0); Mean Platelet Volume 9.5 fL (9.4-12.4); Monocytes Absolute Auto 0.6 X10*3/uL (0.1-1.2); Monocytes Percent Auto 7.4 % (2-11); Neutrophils Absolute Auto 4.2 x10*3/uL (2.0-8.3); Neutrophils Percent Auto 52.9 % (45-73); Platelet Count 217 X10*3/uL (160-400); Red Blood Count 3.99 X10*6/uL (4.60-5.80); Red Cell Distribution Width 14.7 % (11.0-16.0)
[2022-04-13 20:20] LABS: Alanine Aminotransferase 19 U/L (0-40); Albumin Level 3.7 g/dL (3.5-5.0); Alkaline Phosphatase 69 U/L (39-117); Anion Gap 13 (12-20); Aspartate Amino Transferase 24 U/L (5-37); Bilirubin Total < 0.2 mg/dL (0.0-1.0); Blood Urea Nitrogen 9 mg/dL (9-16); Calcium 8.9 mg/dL (8.4-10.2); Carbon Dioxide 28 mmol/L (22-29); Chloride 102 mmol/L (96-108); Creatinine Clr Calc Pharmacy 107.6; Estimated Glomerular Filt Rate > 60; Glucose Random 89 mg/dL (60-115); Magnesium 1.9 mg/dL (1.6-2.6); Potassium 4.1 mmol/L (3.3-5.1); Sodium 139 mmol/L (135-145); Total Protein 6.5 g/dL (6.5-8.0)
[2022-04-13 20:22] LABS: COVID-19 Test Negative (Negative); IDNOW Serial# 6674DD1D
[2022-04-13 20:25] LABS: Lipase 9 U/L (8-78)
[2022-04-13 20:27] LABS: Troponin-I High Sensitivity < 3.5 ng/L (<3.5-35.0)
== END 2022-04-13 21:39 | disposition home or self-care (01) ==
PROVIDERS: Emergency Provider Internal Medicine
DX: R07.89 Other chest pain (principal); F14.90 Cocaine use, unspecified, uncomplicated; F10.90 Alcohol use, unspecified, uncomplicated; F20.9 Schizophrenia, unspecified; Z20.822 Contact with and (suspected) exposure to COVID-19; Z79.899 Other long term (current) drug therapy
CPT/HCPCS: 80053; 83690; 83735; 84484; 85025; 87635; 93005; 96361; 96374; 96375; 99284; J2270; J2405

== ENCOUNTER 2022-05-02 23:25 | Emergency (ER) | payer MEDICAID, SELFPAY ==
[2022-05-02 23:36] VITALS: BP 112/64; BP 118/72; PULSE 68; PULSE 85; RESP 22; TEMP 36.4; O2SAT 97; O2SAT 99; BMI 28.4
--- NOTE | 2022-05-02 23:37 | ED.ABDPAIN ---
HPI - Abdominal Pain General Chief Complaint: Chest Pain Stated Complaint: CP,ABD PAIN,ZAMORA X2DAYS Time Seen by Provider: 05/02/22 23:36 Source: patient Mode of arrival: ambulatory Limitations: no limitations History of Present Illness HPI narrative: Patient frequently with Hospital been here 2 times this month abdominal pain chest pain body vomiting after eating food does have history of gastroparesis bipolar disorder no significant difference in the pain as compared to in the past no fever or chills Related Data Home Medications Medication Instructions Recorded Confirmed fluoride (sodium) 1.1 % dental appl PO BEDTIME 12/23/21 03/04/22 cream (SF 5000 Plus) zolpidem 10 mg tablet 10 mg PO BEDTIME PRN insomnia 12/23/21 03/04/22 amitriptyline 25 mg tablet 25 mg PO BEDTIME 03/03/22 03/04/22 atenolol 25 mg tablet 25 mg PO QAM 03/03/22 03/04/22 hydroxyzine HCl 50 mg tablet 50 mg PO QID PRN anxiety 03/03/22 03/04/22 melatonin 5 mg tablet 10 mg PO BEDTIME 03/03/22 03/04/22 omeprazole 20 mg capsule,delayed 20 mg PO DAILY 03/03/22 03/04/22 release Previous Rx's Medication Instructions Recorded capsaicin 0.025 % topical cream 1 appl topical TID #25 grams 07/17/21 clonidine HCl 0.1 mg tablet 0.1 mg PO BID #60 tabs 07/17/21 famotidine 20 mg tablet 20 mg PO BID #60 tabs 07/17/21 lidocaine 4 % topical patch 1 patch transdermal DAILY #10 ea 07/17/21 (Lidocaine Pain Relief) mirtazapine 15 mg tablet 15 mg PO BEDTIME #30 tabs 07/17/21 paliperidone 6 mg tablet,extended 6 mg PO DAILY #30 tabs 07/17/21 release 24 hr (Invega) ferrous sulfate 300 mg (60 mg 300 mg (5 mL) PO DAILY 90 days 07/31/21 iron)/5 mL oral liquid #450 mL ondansetron 4 mg disintegrating 4 mg PO Q8H PRN nausea/vomiting 30 12/04/21 tablet days #60 tabs sennosides 8.6 mg-docusate sodium 2 tab-cap PO BEDTIME 60 days #120 01/22/22 50 mg tablet (Senna with Docusate tabs Sodium) simethicone 180 mg capsule (Gas 180 mg PO BID PRN abdominal 02/03/22 Relief (simethicone)) distention 30 days #60 caps ondansetron 4 mg disintegrating 4 mg PO Q8H PRN nausea and 02/25/22 tablet vomiting #9 tabs bethanechol chloride 50 mg tablet 50 mg PO BID 90 days #180 tabs 03/04/22 terazosin 5 mg capsule 5 mg PO BEDTIME 90 days #90 caps 03/04/22 oxycodone 5 mg tablet 5 mg PO Q6H PRN pain #20 tabs 04/13/22 Allergies Allergy/AdvReac Type Severity Reaction Status Date / Time trazodone [TRAZODONE] Allergy Severe FACIAL Verified 03/20/22 09:35 SWELLING, swelling cat dander [CATS] Allergy Intermediate FACIAL Verified 03/20/22 09:35 ITCHING doxepin [DOXEPIN] Allergy Intermediate WEIGHT Verified 03/20/22 09:35 GAIN/LEG SWELLING Iodinated Contrast Media Allergy Intermediate ITCHING Verified 03/20/22 09:35 [IV DYE, IODINE CONTAINING CONTRAST ] nitroglycerin [NITROGLYCERIN] Allergy Unknown UNKNOWN Verified 03/20/22 09:35 tramadol [TRAMADOL] Allergy Unknown UNKNOWN, Verified 03/20/22 09:35 dry mouth ibuprofen [From MOTRIN] AdvReac Intermediate GI UPSET Verified 03/20/22 09:35 quetiapine [From SEROQUEL] AdvReac Intermediate FACIAL Verified 03/20/22 09:35 SWELLING aspirin [ASPIRIN] AdvReac Mild Stomach Verified 03/20/22 09:35 Upset Ibuprofen Allergy Unknown stomach Uncoded 03/06/22 09:16 ache IV contrast Allergy Unknown Unknown Uncoded 03/06/22 09:16 Motrin Allergy Unknown stomach Uncoded 03/06/22 09:16 pain Review of Systems Review of Systems Yes all other systems are reviewed and are negative [facility] Past Medical History Medical History Alcohol dependence Anxiety Chest pain Derangement of symphysis pubis Dysphagia GERD (gastroesophageal reflux disease) Low TSH level Major depressive disorder, recurrent severe without psychotic features Opioid abuse Weight loss Surgical History H/O umbilical hernia repair History of colonoscopy History of cystoscopy Family History Family History Father HTN (hypertension) Diabetes Mother HTN (hypertension) Stroke Alzheimer disease Heart disease Social History Social History Household Members: None Housing: Apartment Do you presently have visiting nurse or other home services: No Alcohol intake: never Patient Tobacco Use Status: Tobacco use Unknown Tobacco use type: Cigarette Cigarette Packs Per Day: 1 Cigarettes Per Day: 20.0 Years Smoked: 9 Smoked in Last 30 Days: No e-Cigarette/Vaping Use: Never Used Second Hand Smoke Exposure: No Substance Use Type: Crack/Cocaine and Opiates Advance Directives: Yes Advance Directives on File: Yes Advance Directives Date on File: 02/24/20 service: No Current occupational status: unemployed and disabled Sexual orientation: Questioning Physical Exam ED Vital Signs: Vital Signs - 24 hr 05/02/22 23:36 05/02/22 23:50 Temperature 97.6 F 98.1 F Pulse Rate 68 70 Respiratory Rate 22 H 24 H Blood Pressure 112/64 112/64 Pulse Oximetry 97 97 Oxygen Delivery Method Room Air Room Air BMI result Body Mass Index 28.4 Appearance: Alert. Oriented X3. No acute distress. Eyes: PERRLA, No Nystagmus ENT: Pharynx normal. Oral Mucosa moist Neck: Normal inspection. Neck supple. CVS: Normal heart rate and rhythm. Pulses normal. Respiratory: No respiratory distress. Equal air entry bilateral, no wheezing/rales/rhonchi Abdomen: Soft mild epigastric tenderness no rebound tenderness or guarding. Bowel sounds are present, no mass palpable, no CVA tenderness Skin: Skin warm and dry. Normal skin color. Normal skin turgor. Extremities: No lower extremity edema. No calf tenderness Neuro: Oriented X 3. No motor deficit. No sensory deficit.No cerebellar signs , cranial nerves II-XII intact Medical Decision Making Lab Data MDM Lab Attestation statement: I reviewed the patient's lab results. 05/03/22 00:15 05/03/22 00:15 Labs: Lab Results 05/03/22 05/03/22 05/03/22 Range/Units 00:15 00:15 00:15 WBC 5.4 (4.8-10.8) X10*3/uL RBC 3.40 L (4.60-5.80) X10*6/uL Hgb 10.3 L (14.0-18.0) g/dl Hct 30.8 L (42.0-52.0) % MCV 90.6 (80.0-98.0) fL MCH 30.3 (27.0-33.0) pg MCHC 33.4 (31.0-36.0) g/dl RDW 14.6 (11.0-16.0) % Plt Count 187 (160-400) X10*3/uL MPV 9.5 (9.4-12.4) fL Immature Gran % (Auto) 0.2 (0.0-0.4) % Neut % (Auto) 62.5 (45-73) % Lymph % (Auto) 23.7 (20-40) % [place] % (Auto) 8.5 (2-11) % Eos % (Auto) 4.4 H (0-4) % Baso % (Auto) 0.7 (0-2) % Lymph # (Auto) 1.3 (1.2-4.9) X10*3/uL [place] # (Auto) 0.5 (0.1-1.2) X10*3/uL Eos # (Auto) 0.2 (0.0-0.4) X10*3/uL Baso # (Auto) 0.0 (0.0-0.2) X10*3/uL Abs Immat Gran (auto) 0.01 (0.00-0.03) X10*3/uL Absolute Neuts (auto) 3.4 (2.0-8.3) x10*3/uL Absolute Nucleated RBC 0.000 (0.0-0.012) X10*3/uL Nucleated RBC % (auto) 0.0 (0.0-0.2) /100WBC Sodium 135 (135-145) mmol/L Potassium 3.1 L D (3.3-5.1) mmol/L Chloride 104 (96-108) mmol/L Carbon Dioxide 18 L (22-29) mmol/L Anion Gap 16 (12-20) BUN 7 L (9-16) mg/dL Creatinine 1.12 (0.5-1.4) mg/dL Estim Creat Clear Calc 72.4 Estimated GFR > 60 Random Glucose 184 H (60-115) mg/dL Calcium 8.4 (8.4-10.2) mg/dL Total Bilirubin 0.2 (0.0-1.0) mg/dL AST 19 (5-37) U/L ALT 12 (0-40) U/L Alkaline Phosphatase 70 (39-117) U/L Troponin I High Sens < 3.5 (<3.5-35.0) ng/L Total Protein 5.9 L (6.5-8.0) g/dL Albumin 3.3 L (3.5-5.0) g/dL Lipase 11 (8-78) U/L Medications Administered Discontinued Medications Generic Name Dose Route Start Last Admin Trade Name Freq PRN Reason Stop Dose Admin Diphenhydramine HCl 25 mg 05/03/22 00:00 05/03/22 00:28 Diphenhydramine Hcl 50 Mg/Ml Vial IVPUSH 05/03/22 00:01 25 mg ONCE ONE Administration Hydromorphone HCl 1 mg 05/03/22 00:00 05/03/22 00:28 Hydromorphone Hcl 1 Mg/Ml Syringe IVPUSH 05/03/22 00:01 1 mg ONCE ONE Administration Protocol Sodium Chloride 1,000 mls @ 999 mls/hr 05/03/22 00:00 05/03/22 01:46 Ns IV 05/03/22 01:00 Infused .Q1H1M ONE Infusion Ondansetron HCl 4 mg 05/03/22 00:00 05/03/22 00:28 Ondansetron Hcl 4 Mg/2 Ml Vial IVPUSH 05/03/22 00:01 4 mg ONCE ONE Administration Potassium Bicarbonate 25 meq 05/03/22 01:04 05/03/22 01:47 Potassium Bicarbonate/Cit Ac 25 Meq Tablet.Eff PO 05/03/22 01:05 25 meq ONCE ONE Administration Discharge Plan Discharge Clinical Impression: Abdominal pain, chronic, generalized Patient Disposition: Home, Self-Care Instructions: Abdominal Pain (ED) Additional Instructions: Continue medication as prescribed by PCP Prescriptions: No Action ferrous sulfate 300 mg (60 mg iron)/5 mL liquid 300 mg PO DAILY 90 Days Qty: 450 0RF ondansetron 4 mg tablet,disintegrating 4 mg PO Q8H PRN (Reason: nausea/vomiting) 30 Days Qty: 60 1RF sennosides-docusate sodium [Senna with Docusate Sodium] 8.6-50 mg tablet 2 tab-cap PO BEDTIME 60 Days Qty: 120 2RF Rx Instructions: Please take every other day at bedtime simethicone [Gas Relief (simethicone)] 180 mg capsule 180 mg PO BID PRN (Reason: abdominal distention) 30 Days Qty: 60 2RF clonidine HCl 0.1 mg Tablet 0.1 mg PO BID Qty: 60 0RF Protocol: Hold for SBP< HOLD for SBP < : 90 famotidine 20 mg Tablet 20 mg PO BID Qty: 60 0RF mirtazapine 15 mg Tablet 15 mg PO BEDTIME Qty: 30 0RF paliperidone [Invega] 6 mg Tablet Extended Release 24 Hr 6 mg PO DAILY Qty: 30 0RF lidocaine [Lidocaine Pain Relief] 4 % Adhesive Patch,Medicated 1 patch transdermal DAILY Qty: 10 0RF Protocol: Apply to: Apply to: chest wall capsaicin 0.025 % Cream 1 appl topical TID Qty: 25 0RF Protocol: Apply to: Apply to: bilat knee ondansetron 4 mg tablet,disintegrating 4 mg PO Q8H PRN (Reason: nausea and vomiting) Qty: 9 0RF oxycodone 5 mg tablet 5 mg PO Q6H PRN (Reason: pain) Qty: 20 0RF Rx Instructions: Partial Fill upon patient request. zolpidem 10 mg tablet 10 mg PO BEDTIME PRN (Reason: insomnia) fluoride (sodium) [SF 5000 Plus] 1.1 % cream PO BEDTIME amitriptyline 25 mg tablet 25 mg PO BEDTIME hydroxyzine HCl 50 mg tablet 50 mg PO QID PRN (Reason: anxiety) omeprazole 20 mg capsule,delayed release(DR/EC) 20 mg PO DAILY atenolol 25 mg tablet 25 mg PO QAM melatonin 5 mg tablet 10 mg PO BEDTIME naproxen 500 mg tablet 500 mg PO ONCE Qty: 1 0RF nitrofurantoin monohyd/m-cryst 100 mg capsule 100 mg PO ONCE Qty: 1 0RF lidocaine HCl 2 % jelly in applicator 10 ml intra-urethral ONCE Qty: 10 0RF bethanechol chloride 50 mg tablet 50 mg PO BID 90 Days Qty: 180 1RF terazosin 5 mg capsule 5 mg PO BEDTIME 90 Days Qty: 90 1RF Interventions: ED Discharge Assessment Last Done: 05/03/22 02:03 Discharge Date/Time: 05/03/22 02:03
--- NOTE | 2022-05-02 23:41 | ECG_ITS ---
Test Reason : CHEST PAIN Blood Pressure : / mmHG Vent. Rate : 070 BPM Atrial Rate : 070 BPM P-R Int : 150 ms QRS Dur : 082 ms QT Int : 382 ms P-R-T Axes : 009 -04 013 degrees QTc Int : 412 ms Normal sinus rhythm Minimal voltage criteria for LVH, may be normal variant ( R in aVL ) Nonspecific T wave abnormality Abnormal ECG When compared with ECG of 13-APR-2022 19:12, No significant changes seen Referred By: Carlos Villagomez Electronically Signed By:VIKI PINEDO
[2022-05-02 23:50] VITALS: BP 112/64; PULSE 70; RESP 24; TEMP 36.7; O2SAT 97
[2022-05-03 00:19] LABS: Basophils Percent Auto 0.7 % (0-2); Eosinophils Absolute Auto 0.2 X10*3/uL (0.0-0.4); Eosinophils Percent Auto 4.4 % (0-4); Hematocrit 30.8 % (42.0-52.0); Hemoglobin 10.3 g/dl (14.0-18.0); Imm Gran Abs Auto 0.01 X10*3/uL (0.00-0.03); Imm Gran Pct Auto 0.2 % (0.0-0.4); Lymphocytes Absolute Auto 1.3 X10*3/uL (1.2-4.9); Lymphocytes Percent Auto 23.7 % (20-40); MANUAL DIFF FLAG NO; Mean Corpuscular HGB Conc 33.4 g/dl (31.0-36.0); Mean Corpuscular Hemoglobin 30.3 pg (27.0-33.0); Mean Corpuscular Volume 90.6 fL (80.0-98.0); Mean Platelet Volume 9.5 fL (9.4-12.4); Monocytes Absolute Auto 0.5 X10*3/uL (0.1-1.2); Monocytes Percent Auto 8.5 % (2-11); Neutrophils Absolute Auto 3.4 x10*3/uL (2.0-8.3); Neutrophils Percent Auto 62.5 % (45-73); Platelet Count 187 X10*3/uL (160-400); Red Cell Distribution Width 14.6 % (11.0-16.0); White Blood Count 5.4 X10*3/uL (4.8-10.8)
[2022-05-03] MEDS: diphenhydrAMINE HCL 50 MG/ML VIAL 25 MG IVPUSH (00:28)
[2022-05-03] MEDS: HYDROmorphone HCl 1 MG/ML SYRINGE IVPUSH (00:28)
[2022-05-03] MEDS: ondansetron HCL 4 MG/2 ML VIAL IVPUSH (00:28)
[2022-05-03] MEDS: 0.9 % Sodium Chloride 1,000 ML 999 ML IV (00:29)
[2022-05-03 00:45] LABS: Alanine Aminotransferase 12 U/L (0-40); Albumin Level 3.3 g/dL (3.5-5.0); Alkaline Phosphatase 70 U/L (39-117); Anion Gap 16 (12-20); Aspartate Amino Transferase 19 U/L (5-37); Bilirubin Total 0.2 mg/dL (0.0-1.0); Blood Urea Nitrogen 7 mg/dL (9-16); Calcium 8.4 mg/dL (8.4-10.2); Carbon Dioxide 18 mmol/L (22-29); Chloride 104 mmol/L (96-108); Creatinine Clr Calc Pharmacy 72.4; Estimated Glomerular Filt Rate > 60; Glucose Random 184 mg/dL (60-115); Lipase 11 U/L (8-78); Potassium 3.1 mmol/L (3.3-5.1); Sodium 135 mmol/L (135-145); Total Protein 5.9 g/dL (6.5-8.0); Troponin-I High Sensitivity < 3.5 ng/L (<3.5-35.0)
[2022-05-03] MEDS: Potassium Bicarbonate/Cit AC 25 MEQ TABLET.EFF PO (01:47)
--- NOTE | 2022-05-03 02:01 | PC.NURSE ---
pt medicated according to jun. pt tolerated po med with no issues. iv removed at this time. pt ambulated independently to bathroom. pt verbalized understanding of discharge plan.
== END 2022-05-03 02:03 | disposition home or self-care (01) ==
PROVIDERS: Emergency Provider Internal Medicine
DX: G89.29 Other chronic pain (principal); R10.84 Generalized abdominal pain; F17.210 Nicotine dependence, cigarettes, uncomplicated
CPT/HCPCS: 36415; 80053; 83690; 84484; 85025; 93005; 96361; 96374; 96375; 99284; 99285; J1170; J1200; J2405

== ENCOUNTER 2022-05-05 14:17 | Emergency (ER) | payer MEDICAID, SELFPAY ==
--- NOTE | ~2022-05-05 | XR_ITS ---
EXAMINATION: XR CHEST CLINICAL INFORMATION: Cough. COMPARISON: February 23, 2022. TECHNIQUE: 2 views of the chest were obtained. FINDINGS: No acute finding is identified involving the heart, lungs, mediastinum, or soft tissues. Old, healed fracture at the posterolateral aspect of the right eighth rib. Liban imaged lower lumbar spinal fixation hardware and disc spacing device. Degenerative changes of the shoulders. XR/XR chest 2V IMPRESSION: No acute finding.
--- NOTE | 2022-05-05 14:23 | ED.URI ---
HPI - URI/Sore Throat General Chief Complaint: General Medical <Beth Jennings NP - Last Filed: 05/05/22 14:39> Stated Complaint: FLU LIKE SX, WEAKNESS PER EMS <Beth Jennings NP - Last Filed: 05/05/22 14:39> Time Seen by Provider: 05/05/22 18:21 <Beth Jennings NP - Last Filed: 05/05/22 14:39> Source: patient <Lawanda Louis NP - Last Filed: 05/06/22 00:04> Mode of arrival: ambulatory <Lawanda Louis NP - Last Filed: 05/06/22 00:04> Limitations: no limitations <Lawanda Louis NP - Last Filed: 05/06/22 00:04> History of Present Illness HPI Narrative: 52-year-old male presents with upper respiratory symptoms, congestion, cough, body aches for 3 weeks. He tested positive for COVID 3 days ago, is requesting repeat testing. <Lawanda Louis NP - Last Filed: 05/06/22 00:04> MD elicited complaint: fever, cough and nasal congestion <Lawanda Louis NP - Last Filed: 05/06/22 00:04> Onset (ago): week(s) (3) <Lawanda Louis NP - Last Filed: 05/06/22 00:04> Consistency: constant <Lawanda Louis NP - Last Filed: 05/06/22 00:04> Severity: moderate <Lawanda Louis NP - Last Filed: 05/06/22 00:04> Description of mucous: clear <Lawanda Louis NP - Last Filed: 05/06/22 00:04> Able to tolerate fluids by mouth: Yes <Lawanda Louis NP - Last Filed: 05/06/22 00:04> Exacerbating factors: nothing <Lawanda Louis NP - Last Filed: 05/06/22 00:04> Relieving factors: rest <Lawanda Louis NP - Last Filed: 05/06/22 00:04> Context: sick contacts <Lawanda Louis NP - Last Filed: 05/06/22 00:04> Associated symptoms: chills, myalgias, headache, nasal congestion, sore throat, cough and nausea <Lawanda Louis NP - Last Filed: 05/06/22 00:04> Treatments prior to arrival: none <Lawanda Louis NP - Last Filed: 05/06/22 00:04> Related Data Home Medications: Home Medications Medication Instructions Recorded Confirmed fluoride (sodium) 1.1 % dental appl PO BEDTIME 12/23/21 03/04/22 cream (SF 5000 Plus) zolpidem 10 mg tablet 10 mg PO BEDTIME PRN insomnia 12/23/21 03/04/22 amitriptyline 25 mg tablet 25 mg PO BEDTIME 03/03/22 03/04/22 atenolol 25 mg tablet 25 mg PO QAM 03/03/22 03/04/22 hydroxyzine HCl 50 mg tablet 50 mg PO QID PRN anxiety 03/03/22 03/04/22 melatonin 5 mg tablet 10 mg PO BEDTIME 03/03/22 03/04/22 omeprazole 20 mg capsule,delayed 20 mg PO DAILY 03/03/22 03/04/22 release Previous Rx's Medication Instructions Recorded capsaicin 0.025 % topical cream 1 appl topical TID #25 grams 07/17/21 clonidine HCl 0.1 mg tablet 0.1 mg PO BID #60 tabs 07/17/21 famotidine 20 mg tablet 20 mg PO BID #60 tabs 07/17/21 lidocaine 4 % topical patch 1 patch transdermal DAILY #10 ea 07/17/21 (Lidocaine Pain Relief) mirtazapine 15 mg tablet 15 mg PO BEDTIME #30 tabs 07/17/21 paliperidone 6 mg tablet,extended 6 mg PO DAILY #30 tabs 07/17/21 release 24 hr (Invega) ferrous sulfate 300 mg (60 mg 300 mg (5 mL) PO DAILY 90 days 07/31/21 iron)/5 mL oral liquid #450 mL ondansetron 4 mg disintegrating 4 mg PO Q8H PRN nausea/vomiting 30 12/04/21 tablet days #60 tabs sennosides 8.6 mg-docusate sodium 2 tab-cap PO BEDTIME 60 days #120 01/22/22 50 mg tablet (Senna with Docusate tabs Sodium) simethicone 180 mg capsule (Gas 180 mg PO BID PRN abdominal 02/03/22 Relief (simethicone)) distention 30 days #60 caps ondansetron 4 mg disintegrating 4 mg PO Q8H PRN nausea and 02/25/22 tablet vomiting #9 tabs bethanechol chloride 50 mg tablet 50 mg PO BID 90 days #180 tabs 03/04/22 terazosin 5 mg capsule 5 mg PO BEDTIME 90 days #90 caps 03/04/22 oxycodone 5 mg tablet 5 mg PO Q6H PRN pain #20 tabs 04/13/22 <Beth Jennings NP - Last Filed: 05/05/22 14:39> Allergies/Adverse Reactions: Allergies Allergy/AdvReac Type Severity Reaction Status Date / Time trazodone [TRAZODONE] Allergy Severe FACIAL Verified 03/20/22 09:35 SWELLING, swelling cat dander [CATS] Allergy Intermediate FACIAL Verified 03/20/22 09:35 ITCHING doxepin [DOXEPIN] Allergy Intermediate WEIGHT Verified 03/20/22 09:35 GAIN/LEG SWELLING Iodinated Contrast Media Allergy Intermediate ITCHING Verified 03/20/22 09:35 [IV DYE, IODINE CONTAINING CONTRAST ] nitroglycerin [NITROGLYCERIN] Allergy Unknown UNKNOWN Verified 03/20/22 09:35 tramadol [TRAMADOL] Allergy Unknown UNKNOWN, Verified 03/20/22 09:35 dry mouth ibuprofen [From MOTRIN] AdvReac Intermediate GI UPSET Verified 03/20/22 09:35 quetiapine [From SEROQUEL] AdvReac Intermediate FACIAL Verified 03/20/22 09:35 SWELLING aspirin [ASPIRIN] AdvReac Mild Stomach Verified 03/20/22 09:35 Upset Ibuprofen Allergy Unknown stomach Uncoded 03/06/22 09:16 ache IV contrast Allergy Unknown Unknown Uncoded 03/06/22 09:16 Motrin Allergy Unknown stomach Uncoded 03/06/22 09:16 pain <Beth Jennings NP - Last Filed: 05/05/22 14:39> Review of Systems Review of Systems: Constitutional: positive Fever, positive Chills, positive fatigue, positive Malaise ENT/Mouth: positive sore throat, positive runny nose Eyes: No Discharge Cardiovascular: No Chest Pain, No SOB Respiratory: Positive Cough, No Sputum, No Wheezing, No Dyspnea Gastrointestinal: No Nausea, No Vomiting, No Diarrhea Musculoskeletal: positive Myalgia Skin: No rash Neuro: No Headache <Lawanda Louis NP - Last Filed: 05/06/22 00:04> Yes all other systems are reviewed and are negative <Lawanda Louis NP - Last Filed: 05/06/22 00:04> PMFSH Past Medical History Attestation statement: The following information was validated with the patient. <Lawanda Louis NP - Last Filed: 05/06/22 00:04> Source: old records reviewed <Lawanda Louis NP - Last Filed: 05/06/22 00:04> Medical History: Medical History Alcohol dependence Anxiety Chest pain Derangement of symphysis pubis Dysphagia GERD (gastroesophageal reflux disease) Low TSH level Major depressive disorder, recurrent severe without psychotic features Opioid abuse Weight loss <Beth Jennings NP - Last Filed: 05/05/22 14:39> Surgical History: Surgical History H/O umbilical hernia repair History of colonoscopy History of cystoscopy <Beth Jennings NP - Last Filed: 05/05/22 14:39> Family History Family History: Family History Father HTN (hypertension) Diabetes Mother HTN (hypertension) Stroke Alzheimer disease Heart disease <Beth Jennings NP - Last Filed: 05/05/22 14:39> Social History Social History: Social History Household Members: None Housing: Apartment Do you presently have visiting nurse or other home services: No Alcohol intake: never Patient Tobacco Use Status: Tobacco use Unknown Tobacco use type: Cigarette Cigarette Packs Per Day: 1 Cigarettes Per Day: 20.0 Years Smoked: 9 e-Cigarette/Vaping Use: Never Used Second Hand Smoke Exposure: No Substance Use Type: Crack/Cocaine and Opiates Advance Directives: Yes Advance Directives on File: Yes Advance Directives Date on File: 02/24/20 service: No Current occupational status: unemployed and disabled Sexual orientation: Questioning <Beth Jennings NP - Last Filed: 05/05/22 14:39> Physical Exam Vital Signs: Vital Signs: Last Vital Signs Temp 97.7 F 05/05/22 19:34 Pulse 75 05/05/22 19:34 Resp 18 05/05/22 19:34 BP 141/75 H 05/05/22 19:34 Pulse Ox 97 05/05/22 19:34 O2 Del Method 05/05/22 19:34 BMI result Body Mass Index 28.4 <Beth Jennings NP - Last Filed: 05/05/22 14:39> Vital Signs: Last Vital Signs Temp 97.7 F 05/05/22 19:34 Pulse 75 05/05/22 19:34 Resp 18 05/05/22 19:34 BP 141/75 H 05/05/22 19:34 Pulse Ox 97 05/05/22 19:34 O2 Del Method 05/05/22 19:34 BMI result Body Mass Index 28.4 <Lawanda Louis NP - Last Filed: 05/06/22 00:04> Appearance: Alert. Oriented X3. No acute distress. Eyes: Pupils equal, round and reactive to light. ENT: Pharynx normal. Neck: Normal inspection. Neck supple. CVS: Normal heart rate and rhythm. Pulses normal. Respiratory: No respiratory distress. Breath sounds normal. Abdomen: Soft and nontender. Skin: Skin warm and dry. Normal skin color. Normal skin turgor. Extremities: No lower extremity edema. Neuro: No motor deficit. No sensory deficit. Cranial nerves 2-12 intact. <Lawanda Louis NP - Last Filed: 05/06/22 00:04> Course Course Course Narrative: This is rapid medical exam. Deferred additional HPI, ROS, PE to primary provider. 52-year-old male here with 3 weeks of body aches, cough, headache, nausea, vomiting.Will need labs, UA, CXR, covid/rsv/flu. VSS COVID + 3 days ago at home. <Beth Jennings NP - Last Filed: 05/05/22 14:39> This is rapid medical exam. Deferred additional HPI, ROS, PE to primary provider. 52-year-old male here with 3 weeks of body aches, cough, headache, nausea, vomiting.Will need labs, UA, CXR, covid/rsv/flu. VSS COVID + 3 days ago at home. 52-year-old male presents with 3 weeks of upper respiratory symptoms consistent with COVID-19. Home test performed 3 days ago which was positive. Patient is questioning repeat testing. Patient is requesting morphine for pain management, I did inform the patient that this is not an appropriate medication for COVID symptoms. Motrin which he accepted. Labs are within patient's normal limits, COVID influenza RSV are negative, EKG is with normal sinus, and chest x-ray is negative for acute findings. Plan of care is to discharge home with supportive measures. Patient verbalized understanding of and agrees plan of care. Verbalized understanding of signs symptoms indicating need for emergent intervention. <Lawanda Louis NP - Last Filed: 05/06/22 00:04> Medications Administered Discontinued Medications Generic Name Dose Route Start Last Admin Trade Name Freq PRN Reason Stop Dose Admin Albuterol Sulfate 5 mg 05/05/22 18:30 05/05/22 18:50 Albuterol Sulfate (0.083%) 2.5 Mg/3 Ml Vial.Neb INHALE 05/05/22 18:31 5 mg ONCE ONE Administration Ibuprofen 600 mg 05/05/22 19:14 05/05/22 19:42 Ibuprofen 600 Mg Tablet PO 05/05/22 19:15 Not Given ONCE ONE <Beth Jennings NP - Last Filed: 05/05/22 14:39> Medications Administered Discontinued Medications Generic Name Dose Route Start Last Admin Trade Name Freq PRN Reason Stop Dose Admin Albuterol Sulfate 5 mg 05/05/22 18:30 05/05/22 18:50 Albuterol Sulfate (0.083%) 2.5 Mg/3 Ml Vial.Neb INHALE 05/05/22 18:31 5 mg ONCE ONE Administration Ibuprofen 600 mg 05/05/22 19:14 05/05/22 19:42 Ibuprofen 600 Mg Tablet PO 05/05/22 19:15 Not Given ONCE ONE <Lawanda Louis NP - Last Filed: 05/06/22 00:04> Medical Decision Making Differential Diagnosis Differential Diagnoses: The differential diagnosis associated with the presentation includes <Lawanda Louis WELL REACTIVATOR OPERATOR - Last Filed: 05/06/22 00:04> Influenza, RSV, COVID <Lawanda Vargasgómez WELL REACTIVATOR OPERATOR - Last Filed: 05/06/22 00:04> Lab Data MDM Lab Attestation statement: I reviewed the patient's lab results. <Lawanda Vargasonato, WELL REACTIVATOR OPERATOR - Last Filed: 05/06/22 00:04> Result Diagrams: 05/05/22 17:26 05/05/22 17:26 <Beth Jennings, WELL REACTIVATOR OPERATOR - Last Filed: 05/05/22 14:39> Labs: Lab Results 05/05/22 05/05/22 05/05/22 Range/Units 17:26 17:26 17:26 WBC 6.8 (4.8-10.8) X10*3/uL RBC 3.79 L (4.60-5.80) X10*6/uL Hgb 11.6 L (14.0-18.0) g/dl Hct 34.2 L (42.0-52.0) % MCV 90.2 (80.0-98.0) fL MCH 30.6 (27.0-33.0) pg MCHC 33.9 (31.0-36.0) g/dl RDW 14.5 (11.0-16.0) % Plt Count 197 (160-400) X10*3/uL MPV 9.8 (9.4-12.4) fL Immature Gran % (Auto) 0.7 H (0.0-0.4) % Neut % (Auto) 46.8 (45-73) % Lymph % (Auto) 41.4 H (20-40) % [place] % (Auto) 5.6 (2-11) % Eos % (Auto) 5.2 H (0-4) % Baso % (Auto) 0.3 (0-2) % Lymph # (Auto) 2.8 (1.2-4.9) X10*3/uL [place] # (Auto) 0.4 (0.1-1.2) X10*3/uL Eos # (Auto) 0.4 (0.0-0.4) X10*3/uL Baso # (Auto) 0.0 (0.0-0.2) X10*3/uL Abs Immat Gran (auto) 0.05 H (0.00-0.03) X10*3/uL Absolute Neuts (auto) 3.2 (2.0-8.3) x10*3/uL Absolute Nucleated RBC 0.000 (0.0-0.012) X10*3/uL Nucleated RBC % (auto) 0.0 (0.0-0.2) /100WBC Sodium 141 (135-145) mmol/L Potassium 3.6 (3.3-5.1) mmol/L Chloride 106 (96-108) mmol/L Carbon Dioxide 26 (22-29) mmol/L Anion Gap 13 (12-20) BUN 6 L (9-16) mg/dL Creatinine 0.86 (0.5-1.4) mg/dL Estim Creat Clear Calc 94.3 Estimated GFR > 60 Random Glucose 86 (60-115) mg/dL Calcium 9.0 D (8.4-10.2) mg/dL Total Bilirubin 0.2 (0.0-1.0) mg/dL Direct Bilirubin < 0.2 (0.0-0.5) mg/dL AST 20 (5-37) U/L ALT 17 (0-40) U/L Alkaline Phosphatase 81 (39-117) U/L Total Protein 6.9 (6.5-8.0) g/dL Albumin 3.9 (3.5-5.0) g/dL Influenza Type A (PCR) NEGATIVE (Negative) Influenza Type B (PCR) NEGATIVE (Negative) RSV RNA Qual (PCR) NEGATIVE (Negative) SARS-CoV-2 RNA (RT-PCR) NEGATIVE (Negative) <Beth Jennings, WELL REACTIVATOR OPERATOR - Last Filed: 05/05/22 14:39> Lab Results 05/05/22 05/05/22 05/05/22 Range/Units 17:26 17:26 17:26 WBC 6.8 (4.8-10.8) X10*3/uL RBC 3.79 L (4.60-5.80) X10*6/uL Hgb 11.6 L (14.0-18.0) g/dl Hct 34.2 L (42.0-52.0) % MCV 90.2 (80.0-98.0) fL MCH 30.6 (27.0-33.0) pg MCHC 33.9 (31.0-36.0) g/dl RDW 14.5 (11.0-16.0) % Plt Count 197 (160-400) X10*3/uL MPV 9.8 (9.4-12.4) fL Immature Gran % (Auto) 0.7 H (0.0-0.4) % Neut % (Auto) 46.8 (45-73) % Lymph % (Auto) 41.4 H (20-40) % [place] % (Auto) 5.6 (2-11) % Eos % (Auto) 5.2 H (0-4) % Baso % (Auto) 0.3 (0-2) % Lymph # (Auto) 2.8 (1.2-4.9) X10*3/uL [place] # (Auto) 0.4 (0.1-1.2) X10*3/uL Eos # (Auto) 0.4 (0.0-0.4) X10*3/uL Baso # (Auto) 0.0 (0.0-0.2) X10*3/uL Abs Immat Gran (auto) 0.05 H (0.00-0.03) X10*3/uL Absolute Neuts (auto) 3.2 (2.0-8.3) x10*3/uL Absolute Nucleated RBC 0.000 (0.0-0.012) X10*3/uL Nucleated RBC % (auto) 0.0 (0.0-0.2) /100WBC Sodium 141 (135-145) mmol/L Potassium 3.6 (3.3-5.1) mmol/L Chloride 106 (96-108) mmol/L Carbon Dioxide 26 (22-29) mmol/L Anion Gap 13 (12-20) BUN 6 L (9-16) mg/dL Creatinine 0.86 (0.5-1.4) mg/dL Estim Creat Clear Calc 94.3 Estimated GFR > 60 Random Glucose 86 (60-115) mg/dL Calcium 9.0 D (8.4-10.2) mg/dL Total Bilirubin 0.2 (0.0-1.0) mg/dL Direct Bilirubin < 0.2 (0.0-0.5) mg/dL AST 20 (5-37) U/L ALT 17 (0-40) U/L Alkaline Phosphatase 81 (39-117) U/L Total Protein 6.9 (6.5-8.0) g/dL Albumin 3.9 (3.5-5.0) g/dL Influenza Type A (PCR) NEGATIVE (Negative) Influenza Type B (PCR) NEGATIVE (Negative) RSV RNA Qual (PCR) NEGATIVE (Negative) SARS-CoV-2 RNA (RT-PCR) NEGATIVE (Negative) <ABIGAIL Kumari Last Filed: 05/06/22 00:04> Independent Interpretation I performed an independent interpretation of an: EKG and Plain X-Ray <ABIGAIL Kumari Last Filed: 05/06/22 00:04> Radiology Impression Discussion of test interpretation with radiology: I have reviewed the radiologist's reading. <ABIGAIL Kumari Last Filed: 05/06/22 00:04> Radiologist Impression: EXAMINATION: XR CHEST CLINICAL INFORMATION: Cough. COMPARISON: February 23, 2022. TECHNIQUE: 2 views of the chest were obtained. FINDINGS: No acute finding is identified involving the heart, lungs, mediastinum, or soft tissues. Old, healed fracture at the posterolateral aspect of the right eighth rib. Liban imaged lower lumbar spinal fixation hardware and disc spacing device. Degenerative changes of the shoulders. XR/XR chest 2V IMPRESSION: No acute finding. <Lawanda Louis NP - Last Filed: 05/06/22 00:04> External Record Review External record reviewed: Outpatient record <ABIGAIL Kumari Last Filed: 05/06/22 00:04> Prescription Management I considered prescription management with: Other (Tylenol Motrin) <ABIGAIL Kumari Last Filed: 05/06/22 00:04> Discharge Plan Discharge Clinical Impression: COVID-19 <Beth Jennings NP - Last Filed: 05/05/22 14:39> Patient Disposition: Home, Self-Care <ABIGAIL Mckeon Last Filed: 05/05/22 14:39> Instructions: COVID-19 (Coronavirus Disease 2019) (ED) <Beth Jennings NP - Last Filed: 05/05/22 14:39> Additional Instructions: You were evaluated for viral syndrome. You tested positive for COVID 3 days ago, your COVID test here is negative. Please consider yourself positive for COVID-19. Alternate Tylenol 650 mg every 6 hours and Motrin 600 mg every 6 hours as needed for pain and fever management. Consider taking these medications 3 hours apart so you have pain and fever management every 3 hours. Write down what time you take these medications to prevent accidental overdose. Last dose of Motrin given at 19:00. Next dose due at 01:00. Consider taking Tylenol at 22:00 Drink plenty of fluids. Thank you for choosing this emergency department for evaluation. Please follow-up with primary care physician as needed. Return to the emergency department for any new, concerning, or worsening symptoms. <Beth Jennings NP - Last Filed: 05/05/22 14:39> Prescriptions: No Action ferrous sulfate 300 mg (60 mg iron)/5 mL liquid 300 mg PO DAILY 90 Days Qty: 450 0RF ondansetron 4 mg tablet,disintegrating 4 mg PO Q8H PRN (Reason: nausea/vomiting) 30 Days Qty: 60 1RF sennosides-docusate sodium [Senna with Docusate Sodium] 8.6-50 mg tablet 2 tab-cap PO BEDTIME 60 Days Qty: 120 2RF Rx Instructions: Please take every other day at bedtime simethicone [Gas Relief (simethicone)] 180 mg capsule 180 mg PO BID PRN (Reason: abdominal distention) 30 Days Qty: 60 2RF clonidine HCl 0.1 mg Tablet 0.1 mg PO BID Qty: 60 0RF Protocol: Hold for SBP< HOLD for SBP < : 90 famotidine 20 mg Tablet 20 mg PO BID Qty: 60 0RF mirtazapine 15 mg Tablet 15 mg PO BEDTIME Qty: 30 0RF paliperidone [Invega] 6 mg Tablet Extended Release 24 Hr 6 mg PO DAILY Qty: 30 0RF lidocaine [Lidocaine Pain Relief] 4 % Adhesive Patch,Medicated 1 patch transdermal DAILY Qty: 10 0RF Protocol: Apply to: Apply to: chest wall capsaicin 0.025 % Cream 1 appl topical TID Qty: 25 0RF Protocol: Apply to: Apply to: bilat knee ondansetron 4 mg tablet,disintegrating 4 mg PO Q8H PRN (Reason: nausea and vomiting) Qty: 9 0RF oxycodone 5 mg tablet 5 mg PO Q6H PRN (Reason: pain) Qty: 20 0RF Rx Instructions: Partial Fill upon patient request. zolpidem 10 mg tablet 10 mg PO BEDTIME PRN (Reason: insomnia) fluoride (sodium) [SF 5000 Plus] 1.1 % cream PO BEDTIME amitriptyline 25 mg tablet 25 mg PO BEDTIME hydroxyzine HCl 50 mg tablet 50 mg PO QID PRN (Reason: anxiety) omeprazole 20 mg capsule,delayed release(DR/EC) 20 mg PO DAILY atenolol 25 mg tablet 25 mg PO QAM melatonin 5 mg tablet 10 mg PO BEDTIME naproxen 500 mg tablet 500 mg PO ONCE Qty: 1 0RF nitrofurantoin monohyd/m-cryst 100 mg capsule 100 mg PO ONCE Qty: 1 0RF lidocaine HCl 2 % jelly in applicator 10 ml intra-urethral ONCE Qty: 10 0RF bethanechol chloride 50 mg tablet 50 mg PO BID 90 Days Qty: 180 1RF terazosin 5 mg capsule 5 mg PO BEDTIME 90 Days Qty: 90 1RF <Beth Jennings NP - Last Filed: 05/05/22 14:39> Referrals: [facility] [Primary Care Provider] - 2 weeks (Viral syndrome) <Beth Jennings NP - Last Filed: 05/05/22 14:39> Interventions: ED Discharge Assessment Last Done: 05/05/22 19:42 <Beth Jennings NP - Last Filed: 05/05/22 14:39> Discharge Date/Time: 05/05/22 19:43 <Beth Jennings NP - Last Filed: 05/05/22 14:39>
[2022-05-05 14:37] VITALS: BP 122/58; PULSE 68; RESP 18; TEMP 36.8; O2SAT 97; BMI 28.4
[2022-05-05 17:31] LABS: MANUAL DIFF FLAG NO
[2022-05-05 17:36] LABS: Basophils Percent Auto 0.3 % (0-2); Eosinophils Absolute Auto 0.4 X10*3/uL (0.0-0.4); Eosinophils Percent Auto 5.2 % (0-4); Hematocrit 34.2 % (42.0-52.0); Hemoglobin 11.6 g/dl (14.0-18.0); Imm Gran Abs Auto 0.05 X10*3/uL (0.00-0.03); Imm Gran Pct Auto 0.7 % (0.0-0.4); Lymphocytes Absolute Auto 2.8 X10*3/uL (1.2-4.9); Lymphocytes Percent Auto 41.4 % (20-40); Mean Corpuscular HGB Conc 33.9 g/dl (31.0-36.0); Mean Corpuscular Hemoglobin 30.6 pg (27.0-33.0); Mean Corpuscular Volume 90.2 fL (80.0-98.0); Mean Platelet Volume 9.8 fL (9.4-12.4); Monocytes Absolute Auto 0.4 X10*3/uL (0.1-1.2); Monocytes Percent Auto 5.6 % (2-11); Neutrophils Absolute Auto 3.2 x10*3/uL (2.0-8.3); Neutrophils Percent Auto 46.8 % (45-73); Platelet Count 197 X10*3/uL (160-400); Red Blood Count 3.79 X10*6/uL (4.60-5.80); Red Cell Distribution Width 14.5 % (11.0-16.0); White Blood Count 6.8 X10*3/uL (4.8-10.8)
[2022-05-05 17:50] LABS: Alanine Aminotransferase 17 U/L (0-40); Albumin Level 3.9 g/dL (3.5-5.0); Alkaline Phosphatase 81 U/L (39-117); Anion Gap 13 (12-20); Aspartate Amino Transferase 20 U/L (5-37); Bilirubin Direct < 0.2 mg/dL (0.0-0.5); Bilirubin Total 0.2 mg/dL (0.0-1.0); Blood Urea Nitrogen 6 mg/dL (9-16); Carbon Dioxide 26 mmol/L (22-29); Chloride 106 mmol/L (96-108); Creatinine Clr Calc Pharmacy 94.3; Estimated Glomerular Filt Rate > 60; Glucose Random 86 mg/dL (60-115); Potassium 3.6 mmol/L (3.3-5.1); Sodium 141 mmol/L (135-145); Total Protein 6.9 g/dL (6.5-8.0)
[2022-05-05 18:26] LABS: Influenza A PCR NEGATIVE (Negative); Influenza B PCR NEGATIVE (Negative); Resp Syncy Virus RNA Qual PCR NEGATIVE (Negative); SARS COV2 PCR INHOUSE NEGATIVE (Negative)
[2022-05-05] MEDS: Albuterol Sulfate (0.083%) 2.5 MG/3 ML VIAL.NEB 5 MG INHALE (18:50)
[2022-05-05 18:52] VITALS: PULSE 68; RESP 16; O2SAT 97
[2022-05-05 19:34] VITALS: BP 141/75; PULSE 75; RESP 18; TEMP 36.5; O2SAT 97
== END 2022-05-05 19:43 | disposition home or self-care (01) ==
PROVIDERS: Nurse Practitioner Family; Emergency Provider Internal Medicine
DX: U07.1 COVID-19 (principal); R53.1 Weakness; M79.10 Myalgia, unspecified site; R51.9 Headache, unspecified; R05.9 Cough, unspecified; F17.210 Nicotine dependence, cigarettes, uncomplicated; Z71.6 Tobacco abuse counseling; Z79.899 Other long term (current) drug therapy
CPT/HCPCS: 0241U; 71046; 80048; 80076; 85025; 94640; 99284

== ENCOUNTER 2022-05-09 09:04 | Emergency (ER) | payer MEDICAID, SELFPAY ==
--- NOTE | ~2022-05-09 | XR_ITS ---
EXAMINATION: XR CHEST CLINICAL INFORMATION: Chest pain COMPARISON: Chest radiographs 05/05/2022, 02/23/2022 TECHNIQUE: Portable semiupright AP view of the chest was obtained. FINDINGS: There are low lung volumes. There is subtle opacity left lateral base likely subsegmental atelectasis. Early airspace consolidation cannot be excluded. The remainder of the lungs are clear. There is no pneumothorax or pneumomediastinum. No pleural reaction. No gross effusion. The cardiac and mediastinal contours and visualized bony structures are unremarkable. XR/XR chest 1V IMPRESSION: -Low lung volumes. Subsegmental atelectasis versus early airspace opacity left base. No effusion. -No pneumothorax.
[2022-05-09 09:16] VITALS: BP 140/90; BP 170/110; PULSE 115; PULSE 130; RESP 18; TEMP 37.2; O2SAT 96; O2SAT 99; BMI 28.4
--- NOTE | 2022-05-09 09:16 | ECG_ITS ---
Test Reason : chest pain Blood Pressure : / mmHG Vent. Rate : 116 BPM Atrial Rate : 116 BPM P-R Int : 130 ms QRS Dur : 074 ms QT Int : 326 ms P-R-T Axes : 022 005 057 degrees QTc Int : 453 ms Sinus tachycardia Minimal voltage criteria for LVH, may be normal variant ( R in aVL ) Nonspecific ST abnormality Abnormal ECG When compared with ECG of 02-MAY-2022 23:45, Vent. rate has increased BY 46 BPM Nonspecific T wave abnormality no longer evident in Anterior leads Referred By: Generic ED Physician Electronically Signed By:Scottie Figueroa
--- NOTE | 2022-05-09 09:56 | ED_ITS ---
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 3 days his symptoms started, he feels hot but did not take his tem perature. No one else sick at home. patient does not work due to psychiatric illness. Onset (ago): day(s) Severity: moderate Associated symptoms: cough, fever/chills and nausea/vomiting Related Data Home Medications Medication Instructions Recorded Confirmed fluoride (sodium) 1.1 % dental appl PO BEDTIME 12/23/21 03/04/22 cream (SF 5000 Plus) zolpidem 10 mg tablet 10 mg PO BEDTIME PRN insomnia 12/23/21 03/04/22 amitriptyline 25 mg tablet 25 mg PO BEDTIME 03/03/22 03/04/22 atenolol 25 mg tablet 25 mg PO QAM 03/03/22 03/04/22 hydroxyzine HCl 50 mg tablet 50 mg PO QID PRN anxiety 03/03/22 03/04/22 melatonin 5 mg tablet 10 mg PO BEDTIME 03/03/22 03/04/22 omeprazole 20 mg capsule,delayed 20 mg PO DAILY 03/03/22 03/04/22 release Previous Rx's Medication Instructions Recorded capsaicin 0.025 % topical cream 1 appl topical TID #25 grams 07/17/21 clonidine HCl 0.1 mg tablet 0.1 mg PO BID #60 tabs 07/17/21 famotidine 20 mg tablet 20 mg PO BID #60 tabs 07/17/21 lidocaine 4 % topical patch 1 patch transdermal DAILY #10 ea 07/17/21 (Lidocaine Pain Relief) mirtazapine 15 mg tablet 15 mg PO BEDTIME #30 tabs 07/17/21 paliperidone 6 mg tablet,extended 6 mg PO DAILY #30 tabs 07/17/21 release 24 hr (Invega) ferrous sulfate 300 mg (60 mg 300 mg (5 mL) PO DAILY 90 days 07/31/21 iron)/5 mL oral liquid #450 mL ondansetron 4 mg disintegrating 4 mg PO Q8H PRN nausea/vomiting 30 12/04/21 tablet days #60 tabs sennosides 8.6 mg-docusate sodium 2 tab-cap PO BEDTIME 60 days #120 01/22/22 50 mg tablet (Senna with Docusate tabs Sodium) simethicone 180 mg capsule (Gas 180 mg PO BID PRN abdominal 02/03/22 Relief (simethicone)) distention 30 days #60 caps ondansetron 4 mg disintegrating 4 mg PO Q8H PRN nausea and 02/25/22 tablet vomiting #9 tabs bethanechol chloride 50 mg tablet 50 mg PO BID 90 days #180 tabs 03/04/22 terazosin 5 mg capsule 5 mg PO BEDTIME 90 days #90 caps 03/04/22 oxycodone 5 mg tablet 5 mg PO Q6H PRN pain #20 tabs 04/13/22 ondansetron 4 mg disintegrating 4 mg PO Q8H 4 days #12 tabs 05/09/22 tablet Allergies Allergy/AdvReac Type Severity Reaction Status Date / Time trazodone [TRAZODONE] Allergy Severe FACIAL Verified 03/20/22 09:35 SWELLING, swelling cat dander [CATS] Allergy Intermediate FACIAL Verified 03/20/22 09:35 ITCHING doxepin [DOXEPIN] Allergy Intermediate WEIGHT Verified 03/20/22 09:35 GAIN/LEG SWELLING Iodinated Contrast Media Allergy Intermediate ITCHING Verified 03/20/22 09:35 [IV DYE, IODINE CONTAINING CONTRAST ] nitroglycerin [NITROGLYCERIN] Allergy Unknown UNKNOWN Verified 03/20/22 09:35 tramadol [TRAMADOL] Allergy Unknown UNKNOWN, Verified 03/20/22 09:35 dry mouth ibuprofen [From MOTRIN] AdvReac Intermediate GI UPSET Verified 03/20/22 09:35 quetiapine [From SEROQUEL] AdvReac Intermediate FACIAL Verified 03/20/22 09:35 SWELLING aspirin [ASPIRIN] AdvReac Mild Stomach Verified 03/20/22 09:35 Upset Ibuprofen Allergy Unknown stomach Uncoded 03/06/22 09:16 ache IV contrast Allergy Unknown Unknown Uncoded 03/06/22 09:16 Motrin Allergy Unknown stomach Uncoded 03/06/22 09:16 pain Review of Systems Review of Systems: Yes all other systems are reviewed and are negative Gastrointestinal: Gastrointestinal: Reports nausea and Reports vomiting PMFSH Past Medical History Medical History Alcohol dependence Anxiety Chest pain Derangement of symphysis pubis Dysphagia GERD (gastroesophageal reflux disease) Low TSH level Major depressive disorder, recurrent severe without psychotic features Opioid abuse Weight loss Surgical History H/O umbilical hernia repair History of colonoscopy History of cystoscopy Family History Family History Father HTN (hypertension) Diabetes Mother HTN (hypertension) Stroke Alzheimer disease Heart disease Social History Social History Household Members: None Housing: Apartment Do you presently have visiting nurse or other home services: No Alcohol intake: never Patient Tobacco Use Status: Tobacco use Unknown Tobacco use type: Cigarette Cigarette Packs Per Day: 1 Cigarettes Per Day: 20.0 Years Smoked: 9 Smoked in Last 30 Days: No e-Cigarette/Vaping Use: Never Used Second Hand Smoke Exposure: No Use of substances other than those prescribed or required for medical reasons: No Substance Use Type: Crack/Cocaine and Opiates Advance Directives: Yes Advance Directives on File: Yes Advance Directives Date on File: 02/24/20 service: No Current occupational status: unemployed and disabled Sexual orientation: Questioning Physical Exam ED Vital Signs: Vital Signs - 24 hr 05/09/22 09:16 05/09/22 10:07 05/09/22 11:09 Temperature 98.9 F 98.8 F 98.9 F Pulse Rate 115 H 106 H 107 H Respiratory Rate 18 17 14 Blood Pressure 170/110 H 149/93 H 172/97 H Pulse Oximetry 96 98 98 Oxygen Delivery Method Room Air Room Air Room Air 05/09/22 13:17 Temperature 98.5 F Pulse Rate 113 H Respiratory Rate 17 Blood Pressure 156/100 H Pulse Oximetry 96 Oxygen Delivery Method Room Air BMI result Body Mass Index 28.4 Const Other: anxious, vomiting Nutritional Appearance: average body habitus Orientation/consciousness: oriented to person and patient oriented x3 Limitations: no limitations HENMT Head: Yes normal to inspection Ears: external ears normal General nose exam: Normal external nose present Mouth: Normal oral and palatal mucosa present and oropharynx normal Throat: Yes posterior oropharynx normal Eyes General: appearance normal, both eyes and all related structures Neck Neck: Yes normal visual inspection Chest Chest palpation & inspection: normal inspection of the chest Resp Auscultation: clear to auscultation bilaterally Cardio Jugular venous distension: no JVD Rate: regular rate Rhythm: regular rhythm Heart sounds: S1 normal heart sound present and S2 normal heart sound present GI Inspection: Yes normal to inspection Palpation (GI): Soft to palpation, nontender and No hepatosplenomegaly present Auscultation: normal bowel sounds General: Yes no CVA tenderness Back/Spine/Pelvis Back: no CVA tenderness Skin General skin exam: no rashes or lesions noted Neuro General: oriented to person and patient oriented x3 Cranial nerves: Yes CN's II-XII intact bilaterally Motor exam (neuro): 5/5 motor strength present throughout Extrem General: Yes normal to inspection Psych Appearance: grossly normal Course Reevaluation(s) Reevaluation #1: patient sleeping no further vomiting will dc home Time: 13:13 Medications Administered Discontinued Medications Generic Name Dose Route Start Last Admin Trade Name Freq PRN Reason Stop Dose Admin Sodium Chloride 1,000 mls @ 500 mls/hr 05/09/22 10:15 05/09/22 11:35 Ns IVCONT 05/09/22 12:14 500 mls/hr .Q2H JAMES Administration Ondansetron HCl 4 mg 05/09/22 10:08 05/09/22 11:36 Ondansetron Hcl 4 Mg/2 Ml Vial IVPUSH 05/09/22 10:09 4 mg ONCE ONE Administration Medical Decision Making Differential Diagnosis gastritis, viral illness, covid, rsv, influenza Lab Data [facility] Lab Attestation statement: I reviewed the patient's lab results. 05/09/22 09:57 05/09/22 09:57 Labs: Lab Results 05/09/22 05/09/22 05/09/22 Range/Units 09:57 09:57 09:57 WBC 8.5 (4.8-10.8) X10*3/uL RBC 4.80 D (4.60-5.80) X10*6/uL Hgb 14.1 D (14.0-18.0) g/dl Hct 43.5 D (42.0-52.0) % MCV 90.6 (80.0-98.0) fL MCH 29.4 (27.0-33.0) pg MCHC 32.4 (31.0-36.0) g/dl RDW 14.4 (11.0-16.0) % Plt Count 265 D (160-400) X10*3/uL MPV 9.2 L (9.4-12.4) fL Immature Gran % (Auto) 0.2 (0.0-0.4) % Neut % (Auto) 75.6 H (45-73) % Lymph % (Auto) 18.0 L (20-40) % [place] % (Auto) 5.5 (2-11) % Eos % (Auto) 0.5 (0-4) % Baso % (Auto) 0.2 (0-2) % Lymph # (Auto) 1.5 (1.2-4.9) X10*3/uL [place] # (Auto) 0.5 (0.1-1.2) X10*3/uL Eos # (Auto) 0.0 (0.0-0.4) X10*3/uL Baso # (Auto) 0.0 (0.0-0.2) X10*3/uL Abs Immat Gran (auto) 0.02 (0.00-0.03) X10*3/uL Absolute Neuts (auto) 6.4 (2.0-8.3) x10*3/uL Absolute Nucleated RBC 0.000 (0.0-0.012) X10*3/uL Nucleated RBC % (auto) 0.0 (0.0-0.2) /100WBC Sodium 142 (135-145) mmol/L Potassium 3.6 (3.3-5.1) mmol/L Chloride 99 (96-108) mmol/L Carbon Dioxide 31 H (22-29) mmol/L Anion Gap 16 (12-20) BUN 7 L (9-16) mg/dL Creatinine 0.99 (0.5-1.4) mg/dL Estim Creat Clear Calc 81.9 Estimated GFR > 60 Random Glucose 151 H (60-115) mg/dL Calcium 10.0 D (8.4-10.2) mg/dL Total Bilirubin 0.7 (0.0-1.0) mg/dL Direct Bilirubin 0.2 (0.0-0.5) mg/dL AST 15 (5-37) U/L ALT 14 (0-40) U/L Alkaline Phosphatase 98 (39-117) U/L Troponin I High Sens < 3.5 (<3.5-35.0) ng/L Total Protein 8.2 H (6.5-8.0) g/dL Albumin 4.7 (3.5-5.0) g/dL Lipase 6 L (8-78) U/L Influenza Type A (PCR) (Negative) Influenza Type B (PCR) (Negative) RSV RNA Qual (PCR) (Negative) SARS-CoV-2 RNA (RT-PCR) (Negative) 05/09/22 Range/Units 10:08 WBC (4.8-10.8) X10*3/uL RBC (4.60-5.80) X10*6/uL Hgb (14.0-18.0) g/dl Hct (42.0-52.0) % MCV (80.0-98.0) fL MCH (27.0-33.0) pg MCHC (31.0-36.0) g/dl RDW (11.0-16.0) % Plt Count (160-400) X10*3/uL MPV (9.4-12.4) fL Immature Gran % (Auto) (0.0-0.4) % Neut % (Auto) (45-73) % Lymph % (Auto) (20-40) % [place] % (Auto) (2-11) % Eos % (Auto) (0-4) % Baso % (Auto) (0-2) % Lymph # (Auto) (1.2-4.9) X10*3/uL [place] # (Auto) (0.1-1.2) X10*3/uL Eos # (Auto) (0.0-0.4) X10*3/uL Baso # (Auto) (0.0-0.2) X10*3/uL Abs Immat Gran (auto) (0.00-0.03) X10*3/uL Absolute Neuts (auto) (2.0-8.3) x10*3/uL Absolute Nucleated RBC (0.0-0.012) X10*3/uL Nucleated RBC % (auto) (0.0-0.2) /100WBC Sodium (135-145) mmol/L Potassium (3.3-5.1) mmol/L Chloride (96-108) mmol/L Carbon Dioxide (22-29) mmol/L Anion Gap (12-20) BUN (9-16) mg/dL Creatinine (0.5-1.4) mg/dL Estim Creat Clear Calc Estimated GFR Random Glucose (60-115) mg/dL Calcium (8.4-10.2) mg/dL Total Bilirubin (0.0-1.0) mg/dL Direct Bilirubin (0.0-0.5) mg/dL AST (5-37) U/L ALT (0-40) U/L Alkaline Phosphatase (39-117) U/L Troponin I High Sens (<3.5-35.0) ng/L Total Protein (6.5-8.0) g/dL Albumin (3.5-5.0) g/dL Lipase (8-78) U/L Influenza Type A (PCR) NEGATIVE (Negative) Influenza Type B (PCR) NEGATIVE (Negative) RSV RNA Qual (PCR) NEGATIVE (Negative) SARS-CoV-2 RNA (RT-PCR) NEGATIVE (Negative) Independent Interpretation I performed an independent interpretation of an: EKG (sinus tachycardia, rate 110, no st or twave changes) and Plain X-Ray (CXR no infiltrate) Discharge Plan Discharge Clinical Impression: Gastritis Patient Disposition: Home, Self-Care Instructions: Acute Nausea and Vomiting (ED) Prescriptions: New ondansetron 4 mg tablet,disintegrating 4 mg PO Q8H 4 Days Qty: 12 0RF No Action ferrous sulfate 300 mg (60 mg iron)/5 mL liquid 300 mg PO DAILY 90 Days Qty: 450 0RF ondansetron 4 mg tablet,disintegrating 4 mg PO Q8H PRN (Reason: nausea/vomiting) 30 Days Qty: 60 1RF sennosides-docusate sodium [Senna with Docusate Sodium] 8.6-50 mg tablet 2 tab-cap PO BEDTIME 60 Days Qty: 120 2RF Rx Instructions: Please take every other day at bedtime simethicone [Gas Relief (simethicone)] 180 mg capsule 180 mg PO BID PRN (Reason: abdominal distention) 30 Days Qty: 60 2RF clonidine HCl 0.1 mg Tablet 0.1 mg PO BID Qty: 60 0RF Protocol: Hold for SBP< HOLD for SBP < : 90 famotidine 20 mg Tablet 20 mg PO BID Qty: 60 0RF mirtazapine 15 mg Tablet 15 mg PO BEDTIME Qty: 30 0RF paliperidone [Invega] 6 mg Tablet Extended Release 24 Hr 6 mg PO DAILY Qty: 30 0RF lidocaine [Lidocaine Pain Relief] 4 % Adhesive Patch,Medicated 1 patch transdermal DAILY Qty: 10 0RF Protocol: Apply to: Apply to: chest wall capsaicin 0.025 % Cream 1 appl topical TID Qty: 25 0RF Protocol: Apply to: Apply to: bilat knee ondansetron 4 mg tablet,disintegrating 4 mg PO Q8H PRN (Reason: nausea and vomiting) Qty: 9 0RF oxycodone 5 mg tablet 5 mg PO Q6H PRN (Reason: pain) Qty: 20 0RF Rx Instructions: Partial Fill upon patient request. zolpidem 10 mg tablet 10 mg PO BEDTIME PRN (Reason: insomnia) fluoride (sodium) [SF 5000 Plus] 1.1 % cream PO BEDTIME amitriptyline 25 mg tablet 25 mg PO BEDTIME hydroxyzine HCl 50 mg tablet 50 mg PO QID PRN (Reason: anxiety) omeprazole 20 mg capsule,delayed release(DR/EC) 20 mg PO DAILY atenolol 25 mg tablet 25 mg PO QAM melatonin 5 mg tablet 10 mg PO BEDTIME naproxen 500 mg tablet 500 mg PO ONCE Qty: 1 0RF nitrofurantoin monohyd/m-cryst 100 mg capsule 100 mg PO ONCE Qty: 1 0RF lidocaine HCl 2 % jelly in applicator 10 ml intra-urethral ONCE Qty: 10 0RF bethanechol chloride 50 mg tablet 50 mg PO BID 90 Days Qty: 180 1RF terazosin 5 mg capsule 5 mg PO BEDTIME 90 Days Qty: 90 1RF Referrals: [facility] [Primary Care Provider] - 1 week
[2022-05-09 10:00] LABS: MANUAL DIFF FLAG NO
[2022-05-09 10:01] LABS: Basophils Percent Auto 0.2 % (0-2); Eosinophils Percent Auto 0.5 % (0-4); Hematocrit 43.5 % (42.0-52.0); Hemoglobin 14.1 g/dl (14.0-18.0); Imm Gran Abs Auto 0.02 X10*3/uL (0.00-0.03); Imm Gran Pct Auto 0.2 % (0.0-0.4); Lymphocytes Absolute Auto 1.5 X10*3/uL (1.2-4.9); Mean Corpuscular HGB Conc 32.4 g/dl (31.0-36.0); Mean Corpuscular Hemoglobin 29.4 pg (27.0-33.0); Mean Corpuscular Volume 90.6 fL (80.0-98.0); Mean Platelet Volume 9.2 fL (9.4-12.4); Monocytes Absolute Auto 0.5 X10*3/uL (0.1-1.2); Monocytes Percent Auto 5.5 % (2-11); Neutrophils Absolute Auto 6.4 x10*3/uL (2.0-8.3); Neutrophils Percent Auto 75.6 % (45-73); Platelet Count 265 X10*3/uL (160-400); Red Cell Distribution Width 14.4 % (11.0-16.0); White Blood Count 8.5 X10*3/uL (4.8-10.8)
[2022-05-09 10:07] VITALS: BP 149/93; PULSE 106; RESP 17; TEMP 37.1; O2SAT 98
[2022-05-09 10:31] LABS: Alanine Aminotransferase 14 U/L (0-40); Albumin Level 4.7 g/dL (3.5-5.0); Alkaline Phosphatase 98 U/L (39-117); Anion Gap 16 (12-20); Aspartate Amino Transferase 15 U/L (5-37); Bilirubin Direct 0.2 mg/dL (0.0-0.5); Bilirubin Total 0.7 mg/dL (0.0-1.0); Blood Urea Nitrogen 7 mg/dL (9-16); Carbon Dioxide 31 mmol/L (22-29); Chloride 99 mmol/L (96-108); Creatinine Clr Calc Pharmacy 81.9; Estimated Glomerular Filt Rate > 60; Glucose Random 151 mg/dL (60-115); Lipase 6 U/L (8-78); Potassium 3.6 mmol/L (3.3-5.1); Sodium 142 mmol/L (135-145); Total Protein 8.2 g/dL (6.5-8.0)
[2022-05-09 10:46] LABS: Troponin-I High Sensitivity < 3.5 ng/L (<3.5-35.0)
[2022-05-09 10:53] LABS: Influenza A PCR NEGATIVE (Negative); Influenza B PCR NEGATIVE (Negative); Resp Syncy Virus RNA Qual PCR NEGATIVE (Negative); SARS COV2 PCR INHOUSE NEGATIVE (Negative)
[2022-05-09 11:09] VITALS: BP 172/97; PULSE 107; RESP 14; TEMP 37.2; O2SAT 98
[2022-05-09] MEDS: 0.9 % Sodium Chloride 1,000 ML 500 ML IVCONT (11:35)
[2022-05-09] MEDS: ondansetron HCL 4 MG/2 ML VIAL IVPUSH (11:36)
[2022-05-09 13:17] VITALS: BP 156/100; PULSE 113; RESP 17; TEMP 36.9; O2SAT 96
== END 2022-05-09 13:36 | disposition home or self-care (01) ==
PROVIDERS: Emergency Provider Emergency Medicine
DX: K29.70 Gastritis, unspecified, without bleeding (principal); R05.9 Cough, unspecified; R07.89 Other chest pain; R50.9 Fever, unspecified; F17.210 Nicotine dependence, cigarettes, uncomplicated; Z20.822 Contact with and (suspected) exposure to COVID-19; Z20.828 Contact with and (suspected) exposure to other viral communicable diseases; Z71.6 Tobacco abuse counseling; Z79.899 Other long term (current) drug therapy
CPT/HCPCS: 0241U; 36415; 71045; 80048; 80076; 83690; 84484; 85025; 93005; 96374; 99284; J2405

== ENCOUNTER 2022-05-11 16:08 | Emergency (ER) | payer MEDICAID, SELFPAY ==
[2022-05-11 16:15] VITALS: BP 108/74; PULSE 66; O2SAT 97
[2022-05-11 16:21] VITALS: BP 104/67; PULSE 67; RESP 16; TEMP 36.8; O2SAT 97; BMI 28.4
--- NOTE | 2022-05-11 16:30 | ED_ITS ---
HPI - Chest Pain General Chief Complaint: Chest Pain Stated Complaint: chest pain Time Seen by Provider: 05/11/22 16:23 Source: patient Mode of arrival: ambulatory History of Present Illness HPI narrative: Patient with chronic chest pain from GERD, schizoaffective disorder, anxiety, narcotic dependence comes here very often 3- 4 times a month was last time seen was 2/3 for same midepigastric pain increases with food asking morphine shot this time patient complaining of pain for last 4 days although was seen 2 days ago and workup was negative also complained of nausea Related Data Home Medications Medication Instructions Recorded Confirmed fluoride (sodium) 1.1 % dental appl PO BEDTIME 12/23/21 03/04/22 cream (SF 5000 Plus) zolpidem 10 mg tablet 10 mg PO BEDTIME PRN insomnia 12/23/21 03/04/22 amitriptyline 25 mg tablet 25 mg PO BEDTIME 03/03/22 03/04/22 atenolol 25 mg tablet 25 mg PO QAM 03/03/22 03/04/22 hydroxyzine HCl 50 mg tablet 50 mg PO QID PRN anxiety 03/03/22 03/04/22 melatonin 5 mg tablet 10 mg PO BEDTIME 03/03/22 03/04/22 omeprazole 20 mg capsule,delayed 20 mg PO DAILY 03/03/22 03/04/22 release Previous Rx's Medication Instructions Recorded capsaicin 0.025 % topical cream 1 appl topical TID #25 grams 07/17/21 clonidine HCl 0.1 mg tablet 0.1 mg PO BID #60 tabs 07/17/21 famotidine 20 mg tablet 20 mg PO BID #60 tabs 07/17/21 lidocaine 4 % topical patch 1 patch transdermal DAILY #10 ea 07/17/21 (Lidocaine Pain Relief) mirtazapine 15 mg tablet 15 mg PO BEDTIME #30 tabs 07/17/21 paliperidone 6 mg tablet,extended 6 mg PO DAILY #30 tabs 07/17/21 release 24 hr (Invega) ferrous sulfate 300 mg (60 mg 300 mg (5 mL) PO DAILY 90 days 07/31/21 iron)/5 mL oral liquid #450 mL ondansetron 4 mg disintegrating 4 mg PO Q8H PRN nausea/vomiting 30 12/04/21 tablet days #60 tabs sennosides 8.6 mg-docusate sodium 2 tab-cap PO BEDTIME 60 days #120 01/22/22 50 mg tablet (Senna with Docusate tabs Sodium) simethicone 180 mg capsule (Gas 180 mg PO BID PRN abdominal 02/03/22 Relief (simethicone)) distention 30 days #60 caps ondansetron 4 mg disintegrating 4 mg PO Q8H PRN nausea and 02/25/22 tablet vomiting #9 tabs bethanechol chloride 50 mg tablet 50 mg PO BID 90 days #180 tabs 03/04/22 terazosin 5 mg capsule 5 mg PO BEDTIME 90 days #90 caps 03/04/22 oxycodone 5 mg tablet 5 mg PO Q6H PRN pain #20 tabs 04/13/22 ondansetron 4 mg disintegrating 4 mg PO Q8H 4 days #12 tabs 05/09/22 tablet pantoprazole 40 mg tablet,delayed 40 mg PO DAILY #30 tabs 05/11/22 release (Protonix) sucralfate 1 gram tablet 1 g PO BID #60 tabs 05/11/22 Allergies Allergy/AdvReac Type Severity Reaction Status Date / Time trazodone [TRAZODONE] Allergy Severe FACIAL Verified 03/20/22 09:35 SWELLING, swelling cat dander [CATS] Allergy Intermediate FACIAL Verified 03/20/22 09:35 ITCHING doxepin [DOXEPIN] Allergy Intermediate WEIGHT Verified 03/20/22 09:35 GAIN/LEG SWELLING Iodinated Contrast Media Allergy Intermediate ITCHING Verified 03/20/22 09:35 [IV DYE, IODINE CONTAINING CONTRAST ] nitroglycerin [NITROGLYCERIN] Allergy Unknown UNKNOWN Verified 03/20/22 09:35 tramadol [TRAMADOL] Allergy Unknown UNKNOWN, Verified 03/20/22 09:35 dry mouth ibuprofen [From MOTRIN] AdvReac Intermediate GI UPSET Verified 03/20/22 09:35 quetiapine [From SEROQUEL] AdvReac Intermediate FACIAL Verified 03/20/22 09:35 SWELLING aspirin [ASPIRIN] AdvReac Mild Stomach Verified 03/20/22 09:35 Upset Ibuprofen Allergy Unknown stomach Uncoded 03/06/22 09:16 ache IV contrast Allergy Unknown Unknown Uncoded 03/06/22 09:16 Motrin Allergy Unknown stomach Uncoded 03/06/22 09:16 pain Review of Systems Review of Systems: Yes all other systems are reviewed and are negative [facility] Past Medical History Medical History Alcohol dependence Anxiety Chest pain Derangement of symphysis pubis Dysphagia GERD (gastroesophageal reflux disease) Low TSH level Major depressive disorder, recurrent severe without psychotic features Opioid abuse Weight loss Surgical History H/O umbilical hernia repair History of colonoscopy History of cystoscopy Family History Family History Father HTN (hypertension) Diabetes Mother HTN (hypertension) Stroke Alzheimer disease Heart disease Social History Social History Household Members: None Housing: Apartment Do you presently have visiting nurse or other home services: No Alcohol intake: never Patient Tobacco Use Status: Tobacco use Unknown Tobacco use type: Cigarette Cigarette Packs Per Day: 1 Cigarettes Per Day: 20.0 Years Smoked: 9 e-Cigarette/Vaping Use: Never Used Second Hand Smoke Exposure: No Substance Use Type: Crack/Cocaine and Opiates Advance Directives: Yes Advance Directives on File: Yes Advance Directives Date on File: 02/24/20 service: No Current occupational status: unemployed and disabled Sexual orientation: Questioning Physical Exam Vital Signs: Vital Signs: Last Vital Signs Temp 98.2 F 05/11/22 16:21 Pulse 67 05/11/22 16:21 Resp 16 05/11/22 16:21 BP 104/67 05/11/22 16:21 Pulse Ox 97 05/11/22 16:21 O2 Del Method 05/11/22 16:21 BMI result Body Mass Index 28.4 Appearance: Alert. Oriented X3. No acute distress. Eyes: No pallor or icterus ENT: Pharynx normal. Oral Mucosa moist Neck: Normal inspection. Neck supple. CVS: Normal heart rate and rhythm. Pulses normal. Respiratory: No respiratory distress. Equal air entry bilateral, no wheezing/rales/rhonchi Abdomen: Soft mild epigastric tenderness. Bowel sounds are present, no mass palpable, no CVA tenderness Skin: Skin warm and dry. Normal skin color. Normal skin turgor. Extremities: No lower extremity edema. No calf tenderness Neuro: Oriented X 3. No motor deficit. 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 will give him Protonix and sucralfate Discharge Plan Discharge Clinical Impression: Chest pain due to gastrointestinal reflux disease Patient Disposition: Home, Self-Care Instructions: Gastroesophageal Reflux Disease (ED) Additional Instructions: Take Protonix daily ,along with sucralfate twice daily before meals Follow-up with gastroenterology Prescriptions: New pantoprazole [Protonix] 40 mg tablet,delayed release (DR/EC) 40 mg PO DAILY Qty: 30 0RF sucralfate 1 gram tablet 1 g PO BID Qty: 60 0RF No Action ferrous sulfate 300 mg (60 mg iron)/5 mL liquid 300 mg PO DAILY 90 Days Qty: 450 0RF ondansetron 4 mg tablet,disintegrating 4 mg PO Q8H PRN (Reason: nausea/vomiting) 30 Days Qty: 60 1RF sennosides-docusate sodium [Senna with Docusate Sodium] 8.6-50 mg tablet 2 tab-cap PO BEDTIME 60 Days Qty: 120 2RF Rx Instructions: Please take every other day at bedtime simethicone [Gas Relief (simethicone)] 180 mg capsule 180 mg PO BID PRN (Reason: abdominal distention) 30 Days Qty: 60 2RF clonidine HCl 0.1 mg Tablet 0.1 mg PO BID Qty: 60 0RF Protocol: Hold for SBP< HOLD for SBP < : 90 famotidine 20 mg Tablet 20 mg PO BID Qty: 60 0RF mirtazapine 15 mg Tablet 15 mg PO BEDTIME Qty: 30 0RF paliperidone [Invega] 6 mg Tablet Extended Release 24 Hr 6 mg PO DAILY Qty: 30 0RF lidocaine [Lidocaine Pain Relief] 4 % Adhesive Patch,Medicated 1 patch transdermal DAILY Qty: 10 0RF Protocol: Apply to: Apply to: chest wall capsaicin 0.025 % Cream 1 appl topical TID Qty: 25 0RF Protocol: Apply to: Apply to: bilat knee ondansetron 4 mg tablet,disintegrating 4 mg PO Q8H PRN (Reason: nausea and vomiting) Qty: 9 0RF oxycodone 5 mg tablet 5 mg PO Q6H PRN (Reason: pain) Qty: 20 0RF Rx Instructions: Partial Fill upon patient request. ondansetron 4 mg tablet,disintegrating 4 mg PO Q8H 4 Days Qty: 12 0RF zolpidem 10 mg tablet 10 mg PO BEDTIME PRN (Reason: insomnia) fluoride (sodium) [SF 5000 Plus] 1.1 % cream PO BEDTIME amitriptyline 25 mg tablet 25 mg PO BEDTIME hydroxyzine HCl 50 mg tablet 50 mg PO QID PRN (Reason: anxiety) omeprazole 20 mg capsule,delayed release(DR/EC) 20 mg PO DAILY atenolol 25 mg tablet 25 mg PO QAM melatonin 5 mg tablet 10 mg PO BEDTIME naproxen 500 mg tablet 500 mg PO ONCE Qty: 1 0RF nitrofurantoin monohyd/m-cryst 100 mg capsule 100 mg PO ONCE Qty: 1 0RF lidocaine HCl 2 % jelly in applicator 10 ml intra-urethral ONCE Qty: 10 0RF bethanechol chloride 50 mg tablet 50 mg PO BID 90 Days Qty: 180 1RF terazosin 5 mg capsule 5 mg PO BEDTIME 90 Days Qty: 90 1RF
[2022-05-11] MEDS: oxyCODONE HCl Immed Release 5 MG TABLET 10 MG PO (17:15)
[2022-05-11] MEDS: Lidocaine HCl Viscous 2 % 15 ML SOLUTION MUCOUS MEM (17:17)
[2022-05-11] MEDS: Magnesium Hydrox/Alum Hydrox 30 ML ORAL.SUSP PO (17:17)
[2022-05-11] MEDS: Ondansetron ODT 4 MG TAB.RAPDIS TRANSLINGU (17:17)
[2022-05-11 17:18] VITALS: BP 122/74; PULSE 53; RESP 16; O2SAT 97
== END 2022-05-11 18:37 | disposition home or self-care (01) ==
PROVIDERS: Emergency Provider Internal Medicine
DX: R07.89 Other chest pain (principal); F41.1 Generalized anxiety disorder; F43.0 Acute stress reaction; K21.9 Gastro-esophageal reflux disease without esophagitis; Z79.899 Other long term (current) drug therapy; F17.210 Nicotine dependence, cigarettes, uncomplicated; Z71.6 Tobacco abuse counseling
CPT/HCPCS: 99284

== ENCOUNTER 2022-05-20 07:19 | Emergency (ER) | payer MEDICAID, SELFPAY ==
--- NOTE | ~2022-05-20 | XR_ITS ---
EXAMINATION: XR CHEST CLINICAL INFORMATION: Chest pain. COMPARISON: May 09, 2022. TECHNIQUE: Portable AP view of the chest was obtained. XR/XR chest 1V FINDINGS/IMPRESSION: The study is limited by portable technique and low lung volumes. Bibasilar patchy densities suggest focal infiltrates and/or atelectasis, right worse than left, worse compared with May 09, 2022. No effusion or pneumothorax is seen. The cardiac silhouette is poorly evaluated. The mediastinum, diaphragm, bones, and soft tissues appear unremarkable.
[2022-05-20 07:23] VITALS: BP 134/86; PULSE 82; O2SAT 96
[2022-05-20 07:29] VITALS: BP 123/71; PULSE 84; RESP 18; TEMP 36.9; O2SAT 96
--- NOTE | 2022-05-20 08:12 | ECG_ITS ---
Test Reason : sob Blood Pressure : / mmHG Vent. Rate : 082 BPM Atrial Rate : 082 BPM P-R Int : 136 ms QRS Dur : 084 ms QT Int : 386 ms P-R-T Axes : 022 -02 008 degrees QTc Int : 450 ms Normal sinus rhythm Minimal voltage criteria for LVH, may be normal variant ( R in aVL ) Nonspecific T wave abnormality Abnormal ECG When compared with ECG of 09-MAY-2022 09:18, Inverted T waves have replaced nonspecific T wave abnormality in Inferior leads T wave inversion now evident in Anterior leads Referred By: Elaina Maravilla Electronically Signed By:Scottie Figueroa
--- NOTE | 2022-05-20 08:21 | ED_ITS ---
HPI - Chest Pain General Chief Complaint: Dyspnea Stated Complaint: ANXIETY PER EMS Time Seen by Provider: 05/20/22 07:26 Source: patient Mode of arrival: ambulatory Limitations: no limitations History of Present Illness HPI narrative: 52 yo male with hx of GERD, BPH, bipolar, chronic abdominal pain, alcohol use di sorder, schizoaffective disorder, chronic chest pain, anemia, pancreatitis, GIB here with c/o 3 days of chest pain, L arm pain, abdominal pain, cough, fevers, body aches - he has no sick contacts. He took no medications. He is asking for pain medications on arrival. He denies travel. He states he takes his medications as prescribed and has no help at home. MD complaint: chest pain Onset (ago): day(s) (3) Timing of current episode: constant Prior episodes: Yes Onset: during rest Pain location: left chest Pain radiation: left arm Severity: moderate Quality: other ( pain ) Relieving factors: nothing Context: recent illness Associated symptoms: nausea, dyspnea, fever and cough Treatment prior to arrival: none Related Data Home Medications Medication Instructions Recorded Confirmed fluoride (sodium) 1.1 % dental appl PO BEDTIME 12/23/21 03/04/22 cream (SF 5000 Plus) zolpidem 10 mg tablet 10 mg PO BEDTIME PRN insomnia 12/23/21 03/04/22 amitriptyline 25 mg tablet 25 mg PO BEDTIME 03/03/22 03/04/22 atenolol 25 mg tablet 25 mg PO QAM 03/03/22 03/04/22 hydroxyzine HCl 50 mg tablet 50 mg PO QID PRN anxiety 03/03/22 03/04/22 melatonin 5 mg tablet 10 mg PO BEDTIME 03/03/22 03/04/22 omeprazole 20 mg capsule,delayed 20 mg PO DAILY 03/03/22 03/04/22 release Previous Rx's Medication Instructions Recorded capsaicin 0.025 % topical cream 1 appl topical TID #25 grams 07/17/21 clonidine HCl 0.1 mg tablet 0.1 mg PO BID #60 tabs 07/17/21 famotidine 20 mg tablet 20 mg PO BID #60 tabs 07/17/21 lidocaine 4 % topical patch 1 patch transdermal DAILY #10 ea 07/17/21 (Lidocaine Pain Relief) mirtazapine 15 mg tablet 15 mg PO BEDTIME #30 tabs 07/17/21 paliperidone 6 mg tablet,extended 6 mg PO DAILY #30 tabs 07/17/21 release 24 hr (Invega) ferrous sulfate 300 mg (60 mg 300 mg (5 mL) PO DAILY 90 days 07/31/21 iron)/5 mL oral liquid #450 mL ondansetron 4 mg disintegrating 4 mg PO Q8H PRN nausea/vomiting 30 12/04/21 tablet days #60 tabs sennosides 8.6 mg-docusate sodium 2 tab-cap PO BEDTIME 60 days #120 01/22/22 50 mg tablet (Senna with Docusate tabs Sodium) simethicone 180 mg capsule (Gas 180 mg PO BID PRN abdominal 02/03/22 Relief (simethicone)) distention 30 days #60 caps ondansetron 4 mg disintegrating 4 mg PO Q8H PRN nausea and 02/25/22 tablet vomiting #9 tabs bethanechol chloride 50 mg tablet 50 mg PO BID 90 days #180 tabs 03/04/22 terazosin 5 mg capsule 5 mg PO BEDTIME 90 days #90 caps 03/04/22 oxycodone 5 mg tablet 5 mg PO Q6H PRN pain #20 tabs 04/13/22 ondansetron 4 mg disintegrating 4 mg PO Q8H 4 days #12 tabs 05/09/22 tablet pantoprazole 40 mg tablet,delayed 40 mg PO DAILY #30 tabs 05/11/22 release (Protonix) sucralfate 1 gram tablet 1 g PO BID #60 tabs 05/11/22 amoxicillin 875 mg-potassium 1 tab PO BID #13 tabs 05/20/22 clavulanate 125 mg tablet azithromycin 250 mg tablet 250 mg PO DAILY 4 days #4 tabs 05/20/22 Allergies Allergy/AdvReac Type Severity Reaction Status Date / Time trazodone [TRAZODONE] Allergy Severe FACIAL Verified 05/20/22 08:40 SWELLING, swelling cat dander [CATS] Allergy Intermediate FACIAL Verified 05/20/22 08:40 ITCHING doxepin [DOXEPIN] Allergy Intermediate WEIGHT Verified 05/20/22 08:40 GAIN/LEG SWELLING Iodinated Contrast Media Allergy Intermediate ITCHING Verified 05/20/22 08:40 [IV DYE, IODINE CONTAINING CONTRAST ] nitroglycerin [NITROGLYCERIN] Allergy Unknown UNKNOWN Verified 05/20/22 08:40 tramadol [TRAMADOL] Allergy Unknown UNKNOWN, Verified 05/20/22 08:40 dry mouth ibuprofen [From MOTRIN] AdvReac Intermediate GI UPSET Verified 05/20/22 08:40 quetiapine [From SEROQUEL] AdvReac Intermediate FACIAL Verified 05/20/22 08:40 SWELLING aspirin [ASPIRIN] AdvReac Mild Stomach Verified 05/20/22 08:40 Upset Ibuprofen Allergy Unknown stomach Uncoded 05/20/22 08:40 ache IV contrast Allergy Unknown Unknown Uncoded 05/20/22 08:41 Motrin Allergy Unknown stomach Uncoded 05/20/22 08:41 pain Review of Systems Review of Systems: Constitutional : No Weight loss, pos Fever, pos Chills ENT/Mouth : No sore throat, No Rhinorrhea Eyes: No Eye Pain, No Swelling Cardiovascular : pos Chest Pain, pos SOB, no Dyspnea on Exertion, No Orthopnea, No Edema, No Palpitations Respiratory : No Cough, No Sputum Gastrointestinal : pos Nausea, No Vomiting, No Diarrhea, No abdominal Pain, No Hematochezia, No Melena Genitourinary : No Dysuria, No Urinary Frequency Musculoskeletal : No joint pain, pos Myalgias, No Joint Swelling Skin : No Skin Lesions, No rash Neuro : No Weakness, No Numbness, No Dizziness, No Headache Psych : No Anxiety/Panic, No Depression Heme/Lymph: No Bruising, No Lymphadenopathy Endocrine : No Polyuria, No Polydipsia All other systems reviewed and are negative PMFSH Past Medical History Attestation statement: The following information was validated with the patient. Medical History Alcohol dependence Anxiety Chest pain Derangement of symphysis pubis Dysphagia GERD (gastroesophageal reflux disease) Low TSH level Major depressive disorder, recurrent severe without psychotic features Opioid abuse Weight loss Surgical History H/O umbilical hernia repair History of colonoscopy History of cystoscopy Family History Family History Father HTN (hypertension) Diabetes Mother HTN (hypertension) Stroke Alzheimer disease Heart disease Social History Social History Household Members: None Housing: Apartment Do you presently have visiting nurse or other home services: No Alcohol intake: unknown Patient Tobacco Use Status: Tobacco use Unknown Tobacco use type: Cigarette Cigarette Packs Per Day: 1 Cigarettes Per Day: 20.0 Years Smoked: 9 e-Cigarette/Vaping Use: Never Used Second Hand Smoke Exposure: No Substance Use Type: Crack/Cocaine and Opiates Advance Directives: Yes Advance Directives on File: Yes Advance Directives Date on File: 02/24/20 service: No Current occupational status: unemployed and disabled Sexual orientation: Questioning Physical Exam Vital Signs: Vital Signs: Last Vital Signs Temp 98.4 F 05/20/22 08:44 Pulse 84 05/20/22 08:44 Resp 18 05/20/22 08:44 BP 123/71 05/20/22 08:44 Pulse Ox 96 05/20/22 08:44 O2 Del Method 05/20/22 08:44 BMI result Body Mass Index 28.8 Appearance: Alert. Oriented X3. No acute distress. Eyes: Pupils equal, round and reactive to light. ENT: Pharynx normal. Neck: Normal inspection. Neck supple. CVS: Normal heart rate and rhythm. Pulses normal. Respiratory: No respiratory distress. Breath sounds normal. Abdomen: Soft and non-tender. Skin: Skin warm and dry. Normal skin color. Normal skin turgor. Extremities: No lower extremity edema. No calf ttp Neuro: Oriented X 3. No motor deficit. No sensory deficit. Course Course Course Narrative: today's CBC more inline with his chronic unlike 2/3 doubt he had a 4 point drop VS stable, will ask him to repeat CBC with PCP in 2 days. He will be started on augmentin and azithromycin for CAP coverage, troponin negative x 2. no hypoxia stable for DC Medications Administered Discontinued Medications Generic Name Dose Route Start Last Admin Trade Name Freq PRN Reason Stop Dose Admin Amoxicillin/Clavulanate Potassium 875 mg 05/20/22 10:05/20/22 10:34 Amoxicillin/Potassium Clav 875 Mg Tablet PO 05/20/22 10:24 875 mg ONCE ONE Administration Azithromycin 500 mg 05/20/22 10:05/20/22 10:34 Azithromycin 500 Mg Tablet PO 05/20/22 10:24 500 mg ONCE ONE Administration Medical Decision Making Medical Decision Making MDM Narrative: 52 yo male with hx of GERD, BPH, bipolar, chronic abdominal pain, alcohol use disorder, schizoaffective disorder, chronic chest pain, anemia, pancreatitis, GIB - multiple vague complaints has stable VS - URI symptoms, chest pain, all over pain - seeking pain medications. At this time 3 days of symptoms will obtain CXR for pneumonia, troponin, EKG basic labs and COVID swab if negative anticipate DC home. Will avoid narcotis in light of his prior issues with controlled substances. Differential Diagnosis Differential Diagnoses: The differential diagnosis associated with the presentation includes Lab Data [facility] Lab Attestation statement: I reviewed the patient's lab results. 05/20/22 08:28 05/20/22 08:28 Labs: Lab Results 05/20/22 05/20/22 05/20/22 Range/Units 08:28 08:28 08:28 WBC 8.8 (4.8-10.8) X10*3/uL RBC 3.66 L D (4.60-5.80) X10*6/uL Hgb 10.7 L D (14.0-18.0) g/dl Hct 32.4 L D (42.0-52.0) % MCV 88.5 (80.0-98.0) fL MCH 29.2 (27.0-33.0) pg MCHC 33.0 (31.0-36.0) g/dl RDW 14.3 (11.0-16.0) % Plt Count 255 (160-400) X10*3/uL MPV 9.5 (9.4-12.4) fL Immature Gran % (Auto) 0.5 H (0.0-0.4) % Neut % (Auto) 76.8 H (45-73) % Lymph % (Auto) 13.5 L (20-40) % [place] % (Auto) 6.6 (2-11) % Eos % (Auto) 2.3 (0-4) % Baso % (Auto) 0.3 (0-2) % Lymph # (Auto) 1.2 (1.2-4.9) X10*3/uL [place] # (Auto) 0.6 (0.1-1.2) X10*3/uL Eos # (Auto) 0.2 (0.0-0.4) X10*3/uL Baso # (Auto) 0.0 (0.0-0.2) X10*3/uL Abs Immat Gran (auto) 0.04 H (0.00-0.03) X10*3/uL Absolute Neuts (auto) 6.7 (2.0-8.3) x10*3/uL Absolute Nucleated RBC 0.000 (0.0-0.012) X10*3/uL Nucleated RBC % (auto) 0.0 (0.0-0.2) /100WBC Sodium 140 (135-145) mmol/L Potassium 3.6 (3.3-5.1) mmol/L Chloride 102 (96-108) mmol/L Carbon Dioxide 25 (22-29) mmol/L Anion Gap 17 (12-20) BUN 5 L (9-16) mg/dL Creatinine 0.80 (0.5-1.4) mg/dL Estim Creat Clear Calc 101.9 Estimated GFR > 60 Random Glucose 101 (60-115) mg/dL Calcium 8.9 D (8.4-10.2) mg/dL Magnesium 1.6 (1.6-2.6) mg/dL Total Bilirubin 0.6 (0.0-1.0) mg/dL Direct Bilirubin 0.2 (0.0-0.5) mg/dL AST 184 H (5-37) U/L ALT 97 H (0-40) U/L Alkaline Phosphatase 73 (39-117) U/L Troponin I High Sens 10.4 D (<3.5-35.0) ng/L Total Protein 6.3 L (6.5-8.0) g/dL Albumin 3.4 L (3.5-5.0) g/dL Lipase 5 L (8-78) U/L COVID-19 (ERIN) (Negative) COVID-19 Clin Com 05/20/22 05/20/22 Range/Units 08:40 09:45 WBC (4.8-10.8) X10*3/uL RBC (4.60-5.80) X10*6/uL Hgb (14.0-18.0) g/dl Hct (42.0-52.0) % MCV (80.0-98.0) fL MCH (27.0-33.0) pg MCHC (31.0-36.0) g/dl RDW (11.0-16.0) % Plt Count (160-400) X10*3/uL MPV (9.4-12.4) fL Immature Gran % (Auto) (0.0-0.4) % Neut % (Auto) (45-73) % Lymph % (Auto) (20-40) % [place] % (Auto) (2-11) % Eos % (Auto) (0-4) % Baso % (Auto) (0-2) % Lymph # (Auto) (1.2-4.9) X10*3/uL [place] # (Auto) (0.1-1.2) X10*3/uL Eos # (Auto) (0.0-0.4) X10*3/uL Baso # (Auto) (0.0-0.2) X10*3/uL Abs Immat Gran (auto) (0.00-0.03) X10*3/uL Absolute Neuts (auto) (2.0-8.3) x10*3/uL Absolute Nucleated RBC (0.0-0.012) X10*3/uL Nucleated RBC % (auto) (0.0-0.2) /100WBC Sodium (135-145) mmol/L Potassium (3.3-5.1) mmol/L Chloride (96-108) mmol/L Carbon Dioxide (22-29) mmol/L Anion Gap (12-20) BUN (9-16) mg/dL Creatinine (0.5-1.4) mg/dL Estim Creat Clear Calc Estimated GFR Random Glucose (60-115) mg/dL Calcium (8.4-10.2) mg/dL Magnesium (1.6-2.6) mg/dL Total Bilirubin (0.0-1.0) mg/dL Direct Bilirubin (0.0-0.5) mg/dL AST (5-37) U/L ALT (0-40) U/L Alkaline Phosphatase (39-117) U/L Troponin I High Sens 9.7 (<3.5-35.0) ng/L Total Protein (6.5-8.0) g/dL Albumin (3.5-5.0) g/dL Lipase (8-78) U/L COVID-19 (ERIN) Negative (Negative) COVID-19 Clin Com See Note Independent Interpretation I performed an independent interpretation of an: EKG and Plain X-Ray Interpretation: Rate: 82 Rhythm: NSR [place]: left , LVH Normal P waves. Normal ELLEN. Normal QRS complex. ST T wave : no MARIAMA, nonspecific qTC: normal prior studies: no acute ischemia The study has been interpreted contemporaneously by me. . Independent Historian Clinical information obtained from an independent historian. History obtained from or confirmed by: EMS External Record Review External record reviewed: Inpatient record Prescription Management I considered prescription management with: Antibiotic Social Determinants Patient?s care significantly limited by Social Determinants of Health including: Problems related to primary support group Discharge Plan Discharge Clinical Impression: Anemia in chronic illness, Elevated liver enzymes Pneumonia Qualifiers: Pneumonia type: due to unspecified organism Laterality: right Lung location: lower lobe of lung Qualified Code(s): J18.9 - Pneumonia, unspecified organism Patient Disposition: Home, Self-Care Instructions: Community Acquired Pneumonia (ED), Anemia (ED) Additional Instructions: return to ED for any worsening symptoms or concerns return for worsening symptoms, vomiting, worsening breathing, fevers, no improvement on antibiotics repeat CBC and liver tests with your family doctor in 2 days Prescriptions: New amoxicillin-pot clavulanate 875-125 mg tablet 1 tab PO BID Qty: 13 0RF azithromycin 250 mg tablet 250 mg PO DAILY 4 Days Qty: 4 0RF Rx Instructions: start on day 2 of therapy No Action ferrous sulfate 300 mg (60 mg iron)/5 mL liquid 300 mg PO DAILY 90 Days Qty: 450 0RF ondansetron 4 mg tablet,disintegrating 4 mg PO Q8H PRN (Reason: nausea/vomiting) 30 Days Qty: 60 1RF sennosides-docusate sodium [Senna with Docusate Sodium] 8.6-50 mg tablet 2 tab-cap PO BEDTIME 60 Days Qty: 120 2RF Rx Instructions: Please take every other day at bedtime simethicone [Gas Relief (simethicone)] 180 mg capsule 180 mg PO BID PRN (Reason: abdominal distention) 30 Days Qty: 60 2RF pantoprazole [Protonix] 40 mg tablet,delayed release (DR/EC) 40 mg PO DAILY Qty: 30 0RF sucralfate 1 gram tablet 1 g PO BID Qty: 60 0RF clonidine HCl 0.1 mg Tablet 0.1 mg PO BID Qty: 60 0RF Protocol: Hold for SBP< HOLD for SBP < : 90 famotidine 20 mg Tablet 20 mg PO BID Qty: 60 0RF mirtazapine 15 mg Tablet 15 mg PO BEDTIME Qty: 30 0RF paliperidone [Invega] 6 mg Tablet Extended Release 24 Hr 6 mg PO DAILY Qty: 30 0RF lidocaine [Lidocaine Pain Relief] 4 % Adhesive Patch,Medicated 1 patch transdermal DAILY Qty: 10 0RF Protocol: Apply to: Apply to: chest wall capsaicin 0.025 % Cream 1 appl topical TID Qty: 25 0RF Protocol: Apply to: Apply to: bilat knee ondansetron 4 mg tablet,disintegrating 4 mg PO Q8H PRN (Reason: nausea and vomiting) Qty: 9 0RF oxycodone 5 mg tablet 5 mg PO Q6H PRN (Reason: pain) Qty: 20 0RF Rx Instructions: Partial Fill upon patient request. ondansetron 4 mg tablet,disintegrating 4 mg PO Q8H 4 Days Qty: 12 0RF zolpidem 10 mg tablet 10 mg PO BEDTIME PRN (Reason: insomnia) fluoride (sodium) [SF 5000 Plus] 1.1 % cream PO BEDTIME amitriptyline 25 mg tablet 25 mg PO BEDTIME hydroxyzine HCl 50 mg tablet 50 mg PO QID PRN (Reason: anxiety) omeprazole 20 mg capsule,delayed release(DR/EC) 20 mg PO DAILY atenolol 25 mg tablet 25 mg PO QAM melatonin 5 mg tablet 10 mg PO BEDTIME naproxen 500 mg tablet 500 mg PO ONCE Qty: 1 0RF nitrofurantoin monohyd/m-cryst 100 mg capsule 100 mg PO ONCE Qty: 1 0RF lidocaine HCl 2 % jelly in applicator 10 ml intra-urethral ONCE Qty: 10 0RF bethanechol chloride 50 mg tablet 50 mg PO BID 90 Days Qty: 180 1RF terazosin 5 mg capsule 5 mg PO BEDTIME 90 Days Qty: 90 1RF Referrals: [facility] [Primary Care Provider] - 2 days Interventions: ED Discharge Assessment Last Done: 05/20/22 10:36 Discharge Date/Time: 05/20/22 10:37
[2022-05-20 08:44] VITALS: BP 123/71; PULSE 84; RESP 18; TEMP 36.9; O2SAT 96; BMI 28.8
[2022-05-20 08:51] LABS: MANUAL DIFF FLAG NO
[2022-05-20 08:54] LABS: Basophils Percent Auto 0.3 % (0-2); Eosinophils Absolute Auto 0.2 X10*3/uL (0.0-0.4); Eosinophils Percent Auto 2.3 % (0-4); Hematocrit 32.4 % (42.0-52.0); Hemoglobin 10.7 g/dl (14.0-18.0); Imm Gran Abs Auto 0.04 X10*3/uL (0.00-0.03); Imm Gran Pct Auto 0.5 % (0.0-0.4); Lymphocytes Absolute Auto 1.2 X10*3/uL (1.2-4.9); Lymphocytes Percent Auto 13.5 % (20-40); Mean Corpuscular Hemoglobin 29.2 pg (27.0-33.0); Mean Corpuscular Volume 88.5 fL (80.0-98.0); Mean Platelet Volume 9.5 fL (9.4-12.4); Monocytes Absolute Auto 0.6 X10*3/uL (0.1-1.2); Monocytes Percent Auto 6.6 % (2-11); Neutrophils Absolute Auto 6.7 x10*3/uL (2.0-8.3); Neutrophils Percent Auto 76.8 % (45-73); Platelet Count 255 X10*3/uL (160-400); Red Blood Count 3.66 X10*6/uL (4.60-5.80); Red Cell Distribution Width 14.3 % (11.0-16.0); White Blood Count 8.8 X10*3/uL (4.8-10.8)
[2022-05-20 09:20] LABS: Alanine Aminotransferase 97 U/L (0-40); Albumin Level 3.4 g/dL (3.5-5.0); Alkaline Phosphatase 73 U/L (39-117); Anion Gap 17 (12-20); Aspartate Amino Transferase 184 U/L (5-37); Bilirubin Direct 0.2 mg/dL (0.0-0.5); Bilirubin Total 0.6 mg/dL (0.0-1.0); Blood Urea Nitrogen 5 mg/dL (9-16); Calcium 8.9 mg/dL (8.4-10.2); Carbon Dioxide 25 mmol/L (22-29); Chloride 102 mmol/L (96-108); Creatinine Clr Calc Pharmacy 101.9; Estimated Glomerular Filt Rate > 60; Glucose Random 101 mg/dL (60-115); Lipase 5 U/L (8-78); Magnesium 1.6 mg/dL (1.6-2.6); Potassium 3.6 mmol/L (3.3-5.1); Sodium 140 mmol/L (135-145); Total Protein 6.3 g/dL (6.5-8.0)
[2022-05-20 09:26] LABS: Troponin-I High Sensitivity 10.4 ng/L (<3.5-35.0)
[2022-05-20 09:26] LABS: COVID-19 Test Negative (Negative)
[2022-05-20 10:13] LABS: Troponin-I High Sensitivity 9.7 ng/L (<3.5-35.0)
[2022-05-20] MEDS: Azithromycin 500 MG TABLET PO (10:34)
[2022-05-20] MEDS: Amoxicillin/Potassium Clav 875 MG TABLET PO (10:34)
== END 2022-05-20 10:37 | disposition home or self-care (01) ==
PROVIDERS: Emergency Provider Emergency Medicine
DX: J18.9 Pneumonia, unspecified organism (principal); D64.9 Anemia, unspecified; R06.02 Shortness of breath; R79.89 Other specified abnormal findings of blood chemistry; F41.1 Generalized anxiety disorder; F43.0 Acute stress reaction; R05.9 Cough, unspecified; F17.210 Nicotine dependence, cigarettes, uncomplicated; Z20.828 Contact with and (suspected) exposure to other viral communicable diseases; Z20.822 Contact with and (suspected) exposure to COVID-19; Z79.899 Other long term (current) drug therapy; Z71.6 Tobacco abuse counseling
CPT/HCPCS: 36415; 71045; 80048; 80076; 83690; 83735; 84484; 85025; 87635; 93005; 99283

== ENCOUNTER 2022-06-15 20:32 | Emergency (ER) | payer MEDICAID, SELFPAY ==
--- NOTE | 2022-06-15 | ECG_ITS ---
Test Reason : sob Blood Pressure : / mmHG Vent. Rate : 061 BPM Atrial Rate : 061 BPM P-R Int : 122 ms QRS Dur : 080 ms QT Int : 422 ms P-R-T Axes : 002 -08 012 degrees QTc Int : 424 ms Normal sinus rhythm Minimal voltage criteria for LVH, may be normal variant ( R in aVL ) Borderline ECG When compared with ECG of 20-MAY-2022 08:21, No significant change was found Referred By: Generic ED Physician Electronically Signed By:Scottie Figueroa
--- NOTE | ~2022-06-15 | XR_ITS ---
EXAMINATION: PORTABLE CHEST 1 VIEW CLINICAL INFORMATION: cp . COMPARISON: 05/20/2022. TECHNIQUE: Portable frontal view of the chest was obtained. FINDINGS: The lungs are hypoexpanded with bibasilar markings more likely due to atelectasis. Tiny effusions cannot be excluded. No overt edema or pneumothorax. Cardiac and mediastinal silhouettes within normal limits for size. Old healed right posterior eighth rib fracture seen with degenerative changes in the spine and shoulders. No acute bony abnormality seen. XR/XR chest 1V IMPRESSION: Hypoexpanded with basilar markings more likely due to atelectasis.
[2022-06-15 20:43] VITALS: BP 122/78; BP 129/73; PULSE 56; PULSE 70; RESP 16; TEMP 37.1; O2SAT 97; BMI 27.6
--- NOTE | 2022-06-15 20:51 | ED.CHESTPAIN ---
HPI - Chest Pain General Chief Complaint: Chest Pain Stated Complaint: Abd/back/CP Time Seen by Provider: 06/15/22 20:43 Source: patient and old records reviewed Mode of arrival: ambulatory Limitations: no limitations History of Present Illness HPI narrative: 52-year-old male came in for evaluation of chest pain/upper abdominal epigastric pain, patient also been having pain and discomfort due to acid reflux and GERD disease, history of schizoaffective disorder, anxiety, narcotic dependence patient is a frequent for [employer] to the ED had multiple ED evaluation for similar symptoms of chest pain. Patient had negative workup done in the emergency department. Related Data Home Medications Medication Instructions Recorded Confirmed fluoride (sodium) 1.1 % dental appl PO BEDTIME 12/23/21 03/04/22 cream (SF 5000 Plus) zolpidem 10 mg tablet 10 mg PO BEDTIME PRN insomnia 12/23/21 03/04/22 amitriptyline 25 mg tablet 25 mg PO BEDTIME 03/03/22 03/04/22 atenolol 25 mg tablet 25 mg PO QAM 03/03/22 03/04/22 hydroxyzine HCl 50 mg tablet 50 mg PO QID PRN anxiety 03/03/22 03/04/22 melatonin 5 mg tablet 10 mg PO BEDTIME 03/03/22 03/04/22 omeprazole 20 mg capsule,delayed 20 mg PO DAILY 03/03/22 03/04/22 release Previous Rx's Medication Instructions Recorded capsaicin 0.025 % topical cream 1 appl topical TID #25 grams 07/17/21 clonidine HCl 0.1 mg tablet 0.1 mg PO BID #60 tabs 07/17/21 famotidine 20 mg tablet 20 mg PO BID #60 tabs 07/17/21 lidocaine 4 % topical patch 1 patch transdermal DAILY #10 ea 07/17/21 (Lidocaine Pain Relief) mirtazapine 15 mg tablet 15 mg PO BEDTIME #30 tabs 07/17/21 paliperidone 6 mg tablet,extended 6 mg PO DAILY #30 tabs 07/17/21 release 24 hr (Invega) ferrous sulfate 300 mg (60 mg 300 mg (5 mL) PO DAILY 90 days 07/31/21 iron)/5 mL oral liquid #450 mL ondansetron 4 mg disintegrating 4 mg PO Q8H PRN nausea/vomiting 30 12/04/21 tablet days #60 tabs sennosides 8.6 mg-docusate sodium 2 tab-cap PO BEDTIME 60 days #120 01/22/22 50 mg tablet (Senna with Docusate tabs Sodium) simethicone 180 mg capsule (Gas 180 mg PO BID PRN abdominal 02/03/22 Relief (simethicone)) distention 30 days #60 caps ondansetron 4 mg disintegrating 4 mg PO Q8H PRN nausea and 02/25/22 tablet vomiting #9 tabs bethanechol chloride 50 mg tablet 50 mg PO BID 90 days #180 tabs 03/04/22 terazosin 5 mg capsule 5 mg PO BEDTIME 90 days #90 caps 03/04/22 oxycodone 5 mg tablet 5 mg PO Q6H PRN pain #20 tabs 04/13/22 ondansetron 4 mg disintegrating 4 mg PO Q8H 4 days #12 tabs 05/09/22 tablet pantoprazole 40 mg tablet,delayed 40 mg PO DAILY #30 tabs 05/11/22 release (Protonix) sucralfate 1 gram tablet 1 g PO BID #60 tabs 05/11/22 amoxicillin 875 mg-potassium 1 tab PO BID #13 tabs 05/20/22 clavulanate 125 mg tablet azithromycin 250 mg tablet 250 mg PO DAILY 4 days #4 tabs 05/20/22 omeprazole 40 mg capsule,delayed 40 mg PO DAILY #20 caps 06/15/22 release Allergies Allergy/AdvReac Type Severity Reaction Status Date / Time trazodone [TRAZODONE] Allergy Severe FACIAL Verified 06/15/22 20:42 SWELLING, swelling cat dander [CATS] Allergy Intermediate FACIAL Verified 06/15/22 20:42 ITCHING doxepin [DOXEPIN] Allergy Intermediate WEIGHT Verified 06/15/22 20:42 GAIN/LEG SWELLING Iodinated Contrast Media Allergy Intermediate ITCHING Verified 06/15/22 20:42 [IV DYE, IODINE CONTAINING CONTRAST ] nitroglycerin [NITROGLYCERIN] Allergy Unknown UNKNOWN Verified 06/15/22 20:42 tramadol [TRAMADOL] Allergy Unknown UNKNOWN, Verified 06/15/22 20:42 dry mouth ibuprofen [From MOTRIN] AdvReac Intermediate GI UPSET Verified 06/15/22 20:42 quetiapine [From SEROQUEL] AdvReac Intermediate FACIAL Verified 06/15/22 20:42 SWELLING aspirin [ASPIRIN] AdvReac Mild Stomach Verified 06/15/22 20:42 Upset Ibuprofen Allergy Unknown stomach Uncoded 06/15/22 20:42 ache IV contrast Allergy Unknown Unknown Uncoded 06/15/22 20:42 Motrin Allergy Unknown stomach Uncoded 06/15/22 20:42 pain Review of Systems Review of Systems: All other systems are reviewed and are negative Constitutional: Reports as per HPI and Reports no additional constitutional complaints Eyes: Reports as per HPI and Reports no additional eye complaints Reports system reviewed and no additional complaints, except as documented Cardiovascular: Reports as per HPI and Reports no additional cardiovascular complaints Respiratory: Reports as per HPI and Reports no additional respiratory complaints Gastrointestinal: Reports as per HPI and Reports no additional gastrointestinal complaints Genitourinary: Reports no additional female genitourinary complaints Musculoskeletal: Reports no additional musculoskeletal complaints Skin/Breast: Reports system reviewed and no additional complaints, except as docu Psychiatric: Reports no additional psychiatric complaints Endocrine: Reports no additional endocrine complaints Hematologic/Lymphatic: Reports no additional hematologic/lymphatic complaints Allergic/Immunologic: Reports no additional allergic/immunologic complaints Reports system reviewed and no additional complaints, except as documented and Reports Abnormal speech present [facility] Past Medical History Medical History Alcohol dependence Anxiety Chest pain Derangement of symphysis pubis Dysphagia GERD (gastroesophageal reflux disease) Low TSH level Major depressive disorder, recurrent severe without psychotic features Opioid abuse Weight loss Surgical History H/O umbilical hernia repair History of colonoscopy History of cystoscopy Family History Family History Father HTN (hypertension) Diabetes Mother HTN (hypertension) Stroke Alzheimer disease Heart disease Social History Social History Household Members: None Housing: Apartment Do you presently have visiting nurse or other home services: No Alcohol intake: unknown Patient Tobacco Use Status: Tobacco use Unknown Tobacco use type: Cigarette Cigarette Packs Per Day: 1 Cigarettes Per Day: 20.0 Years Smoked: 9 e-Cigarette/Vaping Use: Never Used Second Hand Smoke Exposure: No Substance Use Type: Crack/Cocaine and Opiates Advance Directives: Yes Advance Directives on File: Yes Advance Directives Date on File: 02/14/20 service: No Current occupational status: unemployed and disabled Sexual orientation: Questioning Physical Exam Vital Signs: Vital Signs: Last Vital Signs Temp 98.8 F 06/15/22 20:43 Pulse 56 06/15/22 20:43 Resp 16 06/15/22 20:43 BP 129/73 06/15/22 20:43 Pulse Ox 97 06/15/22 20:43 O2 Del Method 06/15/22 20:43 BMI result Body Mass Index 27.6 Vital signs have been reviewed as appeared to be correct. Blood pressure normal. Heart rate normal. Respiration rate normal. Temperature normal. Oxygen saturation normal. Appearance: Alert. Oriented X3. No acute distress. Head: Normal external exam. Normocephalic. Atraumatic. No Short signs noted. No raccoon eyes noted Eyes: PERRLA. EOMI. Conjunctiva and sclera normal. Eyelids normal. ENT: TM's Normal. Pharynx normal. Uvula midline. Moist mucous membranes. No trismus noted. No drooling noted. No muffled voice noted. Neck: Normal inspection. Neck supple. FROM. No adenopathy. Thyroid Normal. No meningeal signs. No neck mass noted. CVS: Normal heart rate and rhythm. Heart sound normal. No murmurs noted. Pulses normal throughout. Respiratory: No respiratory distress. Painless inspiration. Breath sounds normal. No wheezes/rales/rhonchi noted. Chest nontender. No accessory muscle usage noted or decreased air movement noted. Abdomen: Soft and nontender. Bowel sounds normal in all 4 quadrants. No distention noted. No organomegaly noted. No visible injury noted. Back: No CVA tenderness. Full range of motion noted. Skin: Skin warm and dry. Normal skin color. Normal skin turgor. No rashes/lesions/lacerations noted. Extremities: No lower extremity edema. Extremities exhibit normal range of motion. Extremities nontender. Neuro: Oriented X 3. Cranial nerve exam: II-XII are grossly intact No motor deficit. No sensory deficit. Reflexes normal. Course Course Course Narrative: 52-year-old male came in for evaluation of a constant chest/upper abdominal pain that has been chronic, patient has unremarkable workup in the ED today, will reassure and discharge. Medical Decision Making Differential Diagnosis Differential Diagnoses: The differential diagnosis associated with the presentation includes (GERD, gastritis, chronic chest pain (noncardiac), myofascial pain.) Lab Data MDM Lab Attestation statement: I reviewed the patient's lab results. 06/15/22 20:57 06/15/22 20:57 Labs: Lab Results 06/15/22 06/15/22 06/15/22 Range/Units 20:57 20:57 20:57 WBC 7.5 (4.8-10.8) X10*3/uL RBC 3.75 L (4.60-5.80) X10*6/uL Hgb 10.8 L (14.0-18.0) g/dl Hct 34.6 L (42.0-52.0) % MCV 92.3 (80.0-98.0) fL MCH 28.8 (27.0-33.0) pg MCHC 31.2 (31.0-36.0) g/dl RDW 15.1 (11.0-16.0) % Plt Count 275 (160-400) X10*3/uL MPV 9.4 (9.4-12.4) fL Immature Gran % (Auto) 0.4 (0.0-0.4) % Neut % (Auto) 51.9 (45-73) % Lymph % (Auto) 34.0 (20-40) % Amelia % (Auto) 7.9 (2-11) % Eos % (Auto) 5.3 H (0-4) % Baso % (Auto) 0.5 (0-2) % Lymph # (Auto) 2.6 (1.2-4.9) X10*3/uL Amelia # (Auto) 0.6 (0.1-1.2) X10*3/uL Eos # (Auto) 0.4 (0.0-0.4) X10*3/uL Baso # (Auto) 0.0 (0.0-0.2) X10*3/uL Abs Immat Gran (auto) 0.03 (0.00-0.03) X10*3/uL Absolute Neuts (auto) 3.9 (2.0-8.3) x10*3/uL Absolute Nucleated RBC 0.000 (0.0-0.012) X10*3/uL Nucleated RBC % (auto) 0.0 (0.0-0.2) /100WBC Sodium 140 (135-145) mmol/L Potassium 3.7 (3.3-5.1) mmol/L Chloride 107 (96-108) mmol/L Carbon Dioxide 23 (22-29) mmol/L Anion Gap 14 (12-20) BUN 7 L (9-16) mg/dL Creatinine 0.95 (0.5-1.4) mg/dL Estim Creat Clear Calc 84.2 Estimated GFR > 60 Random Glucose 165 H (60-115) mg/dL Calcium 8.4 (8.4-10.2) mg/dL Total Bilirubin 0.2 (0.0-1.0) mg/dL Direct Bilirubin < 0.2 (0.0-0.5) mg/dL AST 17 (5-37) U/L ALT 15 (0-40) U/L Alkaline Phosphatase 64 (39-117) U/L Troponin I High Sens < 3.5 D (<3.5-35.0) ng/L Total Protein 6.1 L (6.5-8.0) g/dL Albumin 3.3 L (3.5-5.0) g/dL Lipase 10 (8-78) U/L Independent Interpretation I performed an independent interpretation of an: EKG (Normal sinus rhythm at 61 beats per minute with LVH, left axis deviation, normal intervals, no significant change from previous EKG.) and Plain X-Ray (Chest: No acute intrathoracic pathology.) Radiology Impression Discussion of test interpretation with radiology: I have reviewed the radiologist's reading. Discharge Plan Discharge Clinical Impression: GERD (gastroesophageal reflux disease), Atypical chest pain Patient Disposition: Home, Self-Care Instructions: Noncardiac Chest Pain (ED) Prescriptions: New omeprazole 40 mg capsule,delayed release(DR/EC) 40 mg PO DAILY Qty: 20 0RF No Action ferrous sulfate 300 mg (60 mg iron)/5 mL liquid 300 mg PO DAILY 90 Days Qty: 450 0RF ondansetron 4 mg tablet,disintegrating 4 mg PO Q8H PRN (Reason: nausea/vomiting) 30 Days Qty: 60 1RF sennosides-docusate sodium [Senna with Docusate Sodium] 8.6-50 mg tablet 2 tab-cap PO BEDTIME 60 Days Qty: 120 2RF Rx Instructions: Please take every other day at bedtime simethicone [Gas Relief (simethicone)] 180 mg capsule 180 mg PO BID PRN (Reason: abdominal distention) 30 Days Qty: 60 2RF pantoprazole [Protonix] 40 mg tablet,delayed release (DR/EC) 40 mg PO DAILY Qty: 30 0RF sucralfate 1 gram tablet 1 g PO BID Qty: 60 0RF amoxicillin-pot clavulanate 875-125 mg tablet 1 tab PO BID Qty: 13 0RF azithromycin 250 mg tablet 250 mg PO DAILY 4 Days Qty: 4 0RF Rx Instructions: start on day 2 of therapy clonidine HCl 0.1 mg Tablet 0.1 mg PO BID Qty: 60 0RF Protocol: Hold for SBP< HOLD for SBP < : 90 famotidine 20 mg Tablet 20 mg PO BID Qty: 60 0RF mirtazapine 15 mg Tablet 15 mg PO BEDTIME Qty: 30 0RF paliperidone [Invega] 6 mg Tablet Extended Release 24 Hr 6 mg PO DAILY Qty: 30 0RF lidocaine [Lidocaine Pain Relief] 4 % Adhesive Patch,Medicated 1 patch transdermal DAILY Qty: 10 0RF Protocol: Apply to: Apply to: chest wall capsaicin 0.025 % Cream 1 appl topical TID Qty: 25 0RF Protocol: Apply to: Apply to: bilat knee ondansetron 4 mg tablet,disintegrating 4 mg PO Q8H PRN (Reason: nausea and vomiting) Qty: 9 0RF oxycodone 5 mg tablet 5 mg PO Q6H PRN (Reason: pain) Qty: 20 0RF Rx Instructions: Partial Fill upon patient request. ondansetron 4 mg tablet,disintegrating 4 mg PO Q8H 4 Days Qty: 12 0RF zolpidem 10 mg tablet 10 mg PO BEDTIME PRN (Reason: insomnia) fluoride (sodium) [SF 5000 Plus] 1.1 % cream PO BEDTIME amitriptyline 25 mg tablet 25 mg PO BEDTIME hydroxyzine HCl 50 mg tablet 50 mg PO QID PRN (Reason: anxiety) omeprazole 20 mg capsule,delayed release(DR/EC) 20 mg PO DAILY atenolol 25 mg tablet 25 mg PO QAM melatonin 5 mg tablet 10 mg PO BEDTIME naproxen 500 mg tablet 500 mg PO ONCE Qty: 1 0RF nitrofurantoin monohyd/m-cryst 100 mg capsule 100 mg PO ONCE Qty: 1 0RF lidocaine HCl 2 % jelly in applicator 10 ml intra-urethral ONCE Qty: 10 0RF bethanechol chloride 50 mg tablet 50 mg PO BID 90 Days Qty: 180 1RF terazosin 5 mg capsule 5 mg PO BEDTIME 90 Days Qty: 90 1RF Referrals: Dionne Kaur MD [Physician] -
[2022-06-15 21:04] LABS: MANUAL DIFF FLAG NO
[2022-06-15 21:06] LABS: Basophils Percent Auto 0.5 % (0-2); Eosinophils Absolute Auto 0.4 X10*3/uL (0.0-0.4); Eosinophils Percent Auto 5.3 % (0-4); Hematocrit 34.6 % (42.0-52.0); Hemoglobin 10.8 g/dl (14.0-18.0); Imm Gran Abs Auto 0.03 X10*3/uL (0.00-0.03); Imm Gran Pct Auto 0.4 % (0.0-0.4); Lymphocytes Absolute Auto 2.6 X10*3/uL (1.2-4.9); Mean Corpuscular HGB Conc 31.2 g/dl (31.0-36.0); Mean Corpuscular Hemoglobin 28.8 pg (27.0-33.0); Mean Corpuscular Volume 92.3 fL (80.0-98.0); Mean Platelet Volume 9.4 fL (9.4-12.4); Monocytes Absolute Auto 0.6 X10*3/uL (0.1-1.2); Monocytes Percent Auto 7.9 % (2-11); Neutrophils Absolute Auto 3.9 x10*3/uL (2.0-8.3); Neutrophils Percent Auto 51.9 % (45-73); Platelet Count 275 X10*3/uL (160-400); Red Blood Count 3.75 X10*6/uL (4.60-5.80); Red Cell Distribution Width 15.1 % (11.0-16.0); White Blood Count 7.5 X10*3/uL (4.8-10.8)
[2022-06-15 21:23] LABS: Alanine Aminotransferase 15 U/L (0-40); Albumin Level 3.3 g/dL (3.5-5.0); Alkaline Phosphatase 64 U/L (39-117); Anion Gap 14 (12-20); Aspartate Amino Transferase 17 U/L (5-37); Bilirubin Direct < 0.2 mg/dL (0.0-0.5); Bilirubin Total 0.2 mg/dL (0.0-1.0); Blood Urea Nitrogen 7 mg/dL (9-16); Calcium 8.4 mg/dL (8.4-10.2); Carbon Dioxide 23 mmol/L (22-29); Chloride 107 mmol/L (96-108); Creatinine Clr Calc Pharmacy 84.2; Estimated Glomerular Filt Rate > 60; Glucose Random 165 mg/dL (60-115); Lipase 10 U/L (8-78); Potassium 3.7 mmol/L (3.3-5.1); Sodium 140 mmol/L (135-145); Total Protein 6.1 g/dL (6.5-8.0)
[2022-06-15 21:49] LABS: Troponin-I High Sensitivity < 3.5 ng/L (<3.5-35.0)
[2022-06-15 22:42] VITALS: BP 131/73; PULSE 56; RESP 23; TEMP 36.6; O2SAT 94
== END 2022-06-15 23:24 | disposition home or self-care (01) ==
PROVIDERS: Emergency Provider Emergency Medicine; PCP Internal Medicine
DX: K21.9 Gastro-esophageal reflux disease without esophagitis (principal); R07.89 Other chest pain; R06.02 Shortness of breath; M54.50 Low back pain, unspecified; Z79.899 Other long term (current) drug therapy; F17.210 Nicotine dependence, cigarettes, uncomplicated; Z71.6 Tobacco abuse counseling
CPT/HCPCS: 36415; 71045; 80053; 82248; 83690; 84484; 85025; 93005; 99283

== ENCOUNTER 2022-07-10 08:49 | Inpatient (IN) | payer OTHER, SELFPAY ==
--- NOTE | 2022-07-10 08:57 | ED.OVERDOSE ---
HPI - Overdose General Chief Complaint: Overdose Stated Complaint: OD/AMS, NARCAN GIVEN PER EMS Time Seen by Provider: 07/10/22 08:55 Source: EMS Mode of arrival: EMS Limitations: no limitations History of Present Illness HPI Narrative: Jerson is a 52 years old male brought in by ambulance after an overdose of opioids he was given Narcan he is now awake and alert denies SI and HI. complaint: accidental overdose Onset (ago): hour(s) (1) Intent: other (recreational) Context: Accidental Overdose: wanted to get high Treatments Prior to Arrival: narcan Related Data Home Medications Medication Instructions Recorded Confirmed fluoride (sodium) 1.1 % dental appl PO BEDTIME 12/23/21 03/04/22 cream (SF 5000 Plus) zolpidem 10 mg tablet 10 mg PO BEDTIME PRN insomnia 12/23/21 03/04/22 amitriptyline 25 mg tablet 25 mg PO BEDTIME 03/03/22 03/04/22 atenolol 25 mg tablet 25 mg PO QAM 03/03/22 03/04/22 hydroxyzine HCl 50 mg tablet 50 mg PO QID PRN anxiety 03/03/22 03/04/22 melatonin 5 mg tablet 10 mg PO BEDTIME 03/03/22 03/04/22 omeprazole 20 mg capsule,delayed 20 mg PO DAILY 03/03/22 03/04/22 release Previous Rx's Medication Instructions Recorded capsaicin 0.025 % topical cream 1 appl topical TID #25 grams 07/17/21 clonidine HCl 0.1 mg tablet 0.1 mg PO BID #60 tabs 07/17/21 famotidine 20 mg tablet 20 mg PO BID #60 tabs 07/17/21 lidocaine 4 % topical patch 1 patch transdermal DAILY #10 ea 07/17/21 (Lidocaine Pain Relief) mirtazapine 15 mg tablet 15 mg PO BEDTIME #30 tabs 07/17/21 paliperidone 6 mg tablet,extended 6 mg PO DAILY #30 tabs 07/17/21 release 24 hr (Invega) ferrous sulfate 300 mg (60 mg 300 mg (5 mL) PO DAILY 90 days 07/31/21 iron)/5 mL oral liquid #450 mL ondansetron 4 mg disintegrating 4 mg PO Q8H PRN nausea/vomiting 30 12/04/21 tablet days #60 tabs sennosides 8.6 mg-docusate sodium 2 tab-cap PO BEDTIME 60 days #120 01/22/22 50 mg tablet (Senna with Docusate tabs Sodium) simethicone 180 mg capsule (Gas 180 mg PO BID PRN abdominal 02/03/22 Relief (simethicone)) distention 30 days #60 caps ondansetron 4 mg disintegrating 4 mg PO Q8H PRN nausea and 02/25/22 tablet vomiting #9 tabs bethanechol chloride 50 mg tablet 50 mg PO BID 90 days #180 tabs 03/04/22 terazosin 5 mg capsule 5 mg PO BEDTIME 90 days #90 caps 03/04/22 oxycodone 5 mg tablet 5 mg PO Q6H PRN pain #20 tabs 04/13/22 ondansetron 4 mg disintegrating 4 mg PO Q8H 4 days #12 tabs 05/09/22 tablet pantoprazole 40 mg tablet,delayed 40 mg PO DAILY #30 tabs 05/11/22 release (Protonix) sucralfate 1 gram tablet 1 g PO BID #60 tabs 05/11/22 amoxicillin 875 mg-potassium 1 tab PO BID #13 tabs 05/20/22 clavulanate 125 mg tablet azithromycin 250 mg tablet 250 mg PO DAILY 4 days #4 tabs 05/20/22 omeprazole 40 mg capsule,delayed 40 mg PO DAILY #20 caps 06/15/22 release Allergies Allergy/AdvReac Type Severity Reaction Status Date / Time trazodone [TRAZODONE] Allergy Severe FACIAL Verified 06/15/22 20:42 SWELLING, swelling cat dander [CATS] Allergy Intermediate FACIAL Verified 06/15/22 20:42 ITCHING doxepin [DOXEPIN] Allergy Intermediate WEIGHT Verified 06/15/22 20:42 GAIN/LEG SWELLING Iodinated Contrast Media Allergy Intermediate ITCHING Verified 06/15/22 20:42 [IV DYE, IODINE CONTAINING CONTRAST ] nitroglycerin [NITROGLYCERIN] Allergy Unknown UNKNOWN Verified 06/15/22 20:42 tramadol [TRAMADOL] Allergy Unknown UNKNOWN, Verified 06/15/22 20:42 dry mouth ibuprofen [From MOTRIN] AdvReac Intermediate GI UPSET Verified 06/15/22 20:42 quetiapine [From SEROQUEL] AdvReac Intermediate FACIAL Verified 06/15/22 20:42 SWELLING aspirin [ASPIRIN] AdvReac Mild Stomach Verified 06/15/22 20:42 Upset Ibuprofen Allergy Unknown stomach Uncoded 06/15/22 20:42 ache IV contrast Allergy Unknown Unknown Uncoded 06/15/22 20:42 Motrin Allergy Unknown stomach Uncoded 06/15/22 20:42 pain Review of Systems Constitutional: Constitutional: Reports no additional constitutional complaints Cardiovascular: Cardiovascular: Reports no additional cardiovascular complaints Musculoskeletal: Musculoskeletal: Reports no additional musculoskeletal complaints [facility] Past Medical History [facility] Narrative: Alcohol abuse narcotic abuse/anxiety Medical History Alcohol dependence Anxiety Chest pain Derangement of symphysis pubis Dysphagia GERD (gastroesophageal reflux disease) Low TSH level Major depressive disorder, recurrent severe without psychotic features Opioid abuse Weight loss Surgical History H/O umbilical hernia repair History of colonoscopy History of cystoscopy Family History Family History Father HTN (hypertension) Diabetes Mother HTN (hypertension) Stroke Alzheimer disease Heart disease Social History Social History Household Members: None Housing: Apartment Do you presently have visiting nurse or other home services: No Alcohol intake: never Patient Tobacco Use Status: Tobacco use Unknown Tobacco use type: Cigarette Cigarette Packs Per Day: 1 Cigarettes Per Day: 20.0 Years Smoked: 9 Smoked in Last 30 Days: Yes e-Cigarette/Vaping Use: Never Used Second Hand Smoke Exposure: No Use of substances other than those prescribed or required for medical reasons: Yes Substance Use Type: Heroin and Opiates Last Used Substance: Just Prior to Admission Advance Directives: Yes Advance Directives on File: Yes Advance Directives Date on File: 02/14/20 Healthcare Proxy: No Guardian: No service: No Current occupational status: unemployed and disabled Sexual orientation: Questioning Physical Exam Vital Signs: Vital Signs: Last Vital Signs Temp 98.0 F 07/10/22 13:59 Pulse 59 07/10/22 13:59 Resp 18 07/10/22 13:59 BP 113/63 07/10/22 13:59 Pulse Ox 94 07/10/22 13:59 O2 Del Method Room Air 07/10/22 13:59 BMI result Body Mass Index 29.0 Const: General: cooperative Nutritional Appearance: well nourished Orientation/consciousness: patient oriented x3 HEENT: Head: Yes normal to inspection General nose exam: Normal external nose present Face and sinus: Yes normal facial exam Mouth: Normal oral and palatal mucosa present Throat: Yes posterior oropharynx normal Neck: Neck: Yes normal visual inspection and Yes full ROM Chest: Chest palpation & inspection: normal inspection of the chest Resp: Effort & Inspection: normal respiratory effort and able to speak in complete sentences Auscultation: clear to auscultation bilaterally Cardio: Jugular venous distension: no JVD Rate: regular rate Rhythm: regular rhythm GI: Inspection: Yes normal to inspection Palpation (GI): Soft to palpation, not firm, nontender and no guarding Auscultation: normal bowel sounds Skin: General skin exam: no rashes or lesions noted Neuro: General: patient oriented x3 and CN's II-XI intact bilaterally Cranial nerves: Yes CN's II-XII intact bilaterally Coordination: [id number] test normal Course Reevaluation(s) Reevaluation #1: seen by crisis pt is inpatient level of care because now SI Time: 15:26 Reevaluation #2: Signed out to Dr Hoyos Time: 15:56 Medications Administered Discontinued Medications Generic Name Dose Route Start Last Admin Trade Name Freq PRN Reason Stop Dose Admin Sodium Chloride 1,000 mls @ 999 mls/hr 07/10/22 09:00 07/10/22 11:58 Ns IVCONT 07/10/22 10:00 Infused .Q1H1M JAMES Infusion Ondansetron HCl 4 mg 07/10/22 08:56 07/10/22 10:10 Ondansetron Hcl 4 Mg/2 Ml Vial IVPUSH 07/10/22 08:57 4 mg ONCE ONE Administration Medical Decision Making Medical Decision Making MDM Narrative: Patient presented after opioid overdose he was given Narcan is awake and alert now we get care team will observe for at least 1-2 hours Differential Diagnosis Differential Diagnoses: The differential diagnosis associated with the presentation includes Narcotic overdose/SI/depression Lab Data Labs: Lab Results 07/10/22 07/10/22 Range/Units 13:58 13:58 Urine Opiates Screen Not Detected (Not Detect) Urine Fentanyl Screen POSITIVE H (Not Detect) Ur Barbiturates Screen Not Detected (Not Detect) Ur Phencyclidine Scrn Not Detected (Not Detect) Ur Amphetamines Screen Not Detected (Not Detect) U Benzodiazepines Scrn Not Detected (Not Detect) Urine Cocaine Screen Not Detected (Not Detect) U Marijuana (THC) Screen Not Detected (Not Detect) Ethyl Alcohol < 10 mg/dL Discharge Plan Discharge Clinical Impression: Opioid overdose, Suicidal ideation Prescriptions: No Action ferrous sulfate 300 mg (60 mg iron)/5 mL liquid 300 mg PO DAILY 90 Days Qty: 450 0RF ondansetron 4 mg tablet,disintegrating 4 mg PO Q8H PRN (Reason: nausea/vomiting) 30 Days Qty: 60 1RF sennosides-docusate sodium [Senna with Docusate Sodium] 8.6-50 mg tablet 2 tab-cap PO BEDTIME 60 Days Qty: 120 2RF Rx Instructions: Please take every other day at bedtime simethicone [Gas Relief (simethicone)] 180 mg capsule 180 mg PO BID PRN (Reason: abdominal distention) 30 Days Qty: 60 2RF pantoprazole [Protonix] 40 mg tablet,delayed release (DR/EC) 40 mg PO DAILY Qty: 30 0RF sucralfate 1 gram tablet 1 g PO BID Qty: 60 0RF amoxicillin-pot clavulanate 875-125 mg tablet 1 tab PO BID Qty: 13 0RF azithromycin 250 mg tablet 250 mg PO DAILY 4 Days Qty: 4 0RF Rx Instructions: start on day 2 of therapy clonidine HCl 0.1 mg Tablet 0.1 mg PO BID Qty: 60 0RF Protocol: Hold for SBP< HOLD for SBP < : 90 famotidine 20 mg Tablet 20 mg PO BID Qty: 60 0RF mirtazapine 15 mg Tablet 15 mg PO BEDTIME Qty: 30 0RF paliperidone [Invega] 6 mg Tablet Extended Release 24 Hr 6 mg PO DAILY Qty: 30 0RF lidocaine [Lidocaine Pain Relief] 4 % Adhesive Patch,Medicated 1 patch transdermal DAILY Qty: 10 0RF Protocol: Apply to: Apply to: chest wall capsaicin 0.025 % Cream 1 appl topical TID Qty: 25 0RF Protocol: Apply to: Apply to: bilat knee ondansetron 4 mg tablet,disintegrating 4 mg PO Q8H PRN (Reason: nausea and vomiting) Qty: 9 0RF oxycodone 5 mg tablet 5 mg PO Q6H PRN (Reason: pain) Qty: 20 0RF Rx Instructions: Partial Fill upon patient request. ondansetron 4 mg tablet,disintegrating 4 mg PO Q8H 4 Days Qty: 12 0RF omeprazole 40 mg capsule,delayed release(DR/EC) 40 mg PO DAILY Qty: 20 0RF zolpidem 10 mg tablet 10 mg PO BEDTIME PRN (Reason: insomnia) fluoride (sodium) [SF 5000 Plus] 1.1 % cream PO BEDTIME amitriptyline 25 mg tablet 25 mg PO BEDTIME hydroxyzine HCl 50 mg tablet 50 mg PO QID PRN (Reason: anxiety) omeprazole 20 mg capsule,delayed release(DR/EC) 20 mg PO DAILY atenolol 25 mg tablet 25 mg PO QAM melatonin 5 mg tablet 10 mg PO BEDTIME naproxen 500 mg tablet 500 mg PO ONCE Qty: 1 0RF nitrofurantoin monohyd/m-cryst 100 mg capsule 100 mg PO ONCE Qty: 1 0RF lidocaine HCl 2 % jelly in applicator 10 ml intra-urethral ONCE Qty: 10 0RF bethanechol chloride 50 mg tablet 50 mg PO BID 90 Days Qty: 180 1RF terazosin 5 mg capsule 5 mg PO BEDTIME 90 Days Qty: 90 1RF
[2022-07-10 08:58] VITALS: BP 126/73; PULSE 120; O2SAT 97
[2022-07-10 09:12] VITALS: BP 108/50; PULSE 73; RESP 16; TEMP 36.9; O2SAT 97; BMI 29.0
[2022-07-10] MEDS: ondansetron HCL 4 MG/2 ML VIAL IVPUSH (10:10)
[2022-07-10] MEDS: 0.9 % Sodium Chloride 1,000 ML 999 ML IVCONT (10:10)
[2022-07-10 11:22] VITALS: BP 107/68; PULSE 75; RESP 18; TEMP 36.7; O2SAT 96
--- NOTE | 2022-07-10 12:31 | HO.ADDICT_ITS ---
History of Present Illness Date of Service: 07/10/2022 Chief Complaint: OD/AMS, NARCAN GIVEN PER EMS Reason for Consult: opioid overdose requiring narcan Sources of Information: patient interviewed and chart reviewed HPI Narrative: Patient is a 52-year-old Gren[place]-speaking male currently in the emergency department following an opioid overdose requiring Narcan. Patient awake alert and engaged in interview when seen by this auto service writer. He reports that he used 1 bag because he was ?feeling alone and abandoned by my family?. He reports that in the moment he felt like dying. Denies regular substance use. Reports 1 previous overdose ?many many years ago?. States he has not used any opiates for over a year and uses only when feeling very depressed. Denies any withdrawal symptoms and appears comfortable. Does report anxiety and requesting medication. When asked if he still felt like not being alive he replied yes and stated that he thinks he needs to be ?in the hospital again?. Past Psychiatric History: -Pt psychiatrist is Dr. Bud Da Silva and he has OP services at [facility] -Hx of multiple psych inpatient admissions since 2011. Hx of CCS, ATS. -Past med trials: trazodone (facial swelling), doxepin (leg swelling), quetiapine (facial swelling), clonidine, amitriptyline, prolixin, remeron. Review of Systems Constitutional: Reports as per HPI Diagnostics Vital Signs (24Hr): Vital Signs - 24 hr 07/10/22 09:12 07/10/22 11:22 Temperature 98.4 F 98.0 F Pulse Rate 73 75 Respiratory Rate 16 18 Blood Pressure 108/50 L 107/68 Pulse Oximetry 97 96 Oxygen Delivery Method Room Air Room Air BMI result Body Mass Index 29.0 Mental Status Exam Mental Status Exam Level of Consciousness: Awake and Alert Mood Description: Depressed Affect Description: Constricted Thought Process: Intact Judgement: Fair Medications Allergies Allergies Allergy/AdvReac Type Severity Reaction Status Date / Time trazodone [TRAZODONE] Allergy Severe FACIAL Verified 06/15/22 20:42 SWELLING, swelling cat dander [CATS] Allergy Intermediate FACIAL Verified 06/15/22 20:42 ITCHING doxepin [DOXEPIN] Allergy Intermediate WEIGHT Verified 06/15/22 20:42 GAIN/LEG SWELLING Iodinated Contrast Media Allergy Intermediate ITCHING Verified 06/15/22 20:42 [IV DYE, IODINE CONTAINING CONTRAST ] nitroglycerin [NITROGLYCERIN] Allergy Unknown UNKNOWN Verified 06/15/22 20:42 tramadol [TRAMADOL] Allergy Unknown UNKNOWN, Verified 06/15/22 20:42 dry mouth ibuprofen [From MOTRIN] AdvReac Intermediate GI UPSET Verified 06/15/22 20:42 quetiapine [From SEROQUEL] AdvReac Intermediate FACIAL Verified 06/15/22 20:42 SWELLING aspirin [ASPIRIN] AdvReac Mild Stomach Verified 06/15/22 20:42 Upset Ibuprofen Allergy Unknown stomach Uncoded 06/15/22 20:42 ache IV contrast Allergy Unknown Unknown Uncoded 06/15/22 20:42 Motrin Allergy Unknown stomach Uncoded 06/15/22 20:42 pain Assessment & Plan Assessment & Plan (1) Opioid overdose: Status: Acute Code(s): T40.2X1A - Poisoning by other opioids, accidental (unintentional), initial encounter Assessment and Plan: * Does not appear to be in any withdrawal, and denies regular use. * Attempted to discuss risk reduction an overdose prevention with patient, however he was unable to remain engaged in discussion and often asking questions unrelated to topic. * Discussed case with Mary on Care Team, patient to be evaluated for suicidal ideation. * No further follow-up at this time from recovery. Should patient be admitted will follow up with overdose prevention strategies. Total time managing care of this patient today __35__ minutes. [facility] Past Medical History Medical History Alcohol dependence Anxiety Chest pain Derangement of symphysis pubis Dysphagia GERD (gastroesophageal reflux disease) Low TSH level Major depressive disorder, recurrent severe without psychotic features Opioid abuse Weight loss Family History Family History Father HTN (hypertension) Diabetes Mother HTN (hypertension) Stroke Alzheimer disease Heart disease Surgical History Surgical History H/O umbilical hernia repair History of colonoscopy History of cystoscopy Social History Social History Household Members: None Housing: Apartment Do you presently have visiting nurse or other home services: No Alcohol intake: never Patient Tobacco Use Status: Tobacco use Unknown Tobacco use type: Cigarette Cigarette Packs Per Day: 1 Cigarettes Per Day: 20.0 Years Smoked: 9 Smoked in Last 30 Days: Yes e-Cigarette/Vaping Use: Never Used Second Hand Smoke Exposure: No Use of substances other than those prescribed or required for medical reasons: Yes Substance Use Type: Heroin and Opiates Last Used Substance: Just Prior to Admission Advance Directives: Yes Advance Directives on File: Yes Advance Directives Date on File: 02/14/20 service: No Current occupational status: unemployed and disabled Sexual orientation: Questioning
--- NOTE | 2022-07-10 13:42 | PC.NURSE ---
Addendum entered by Elena Bruner 07/10/22 14:04: pt is now stating that he+si per care team and bernadette rg(chainstitch felled seam operator). Original Note: caryn (care team) at bedside pt aware of plan of care.
[2022-07-10 13:59] VITALS: BP 113/63; PULSE 59; RESP 18; TEMP 36.7; O2SAT 94
--- NOTE | 2022-07-10 14:00 | PC.NURSE ---
Addendum entered by Laurie Horton RN 07/10/22 14:05: Pt aware of plan of care Addendum entered by Laurie Horton RN 07/10/22 14:04: Rn in pod Original Note: RN to RN report given.
[2022-07-10 14:21] LABS: Amphetamine Screen Urine Not Detected (Not Detect); Barbiturates, Urine Not Detected (Not Detect); Benzodiazepines Screen Urine Not Detected (Not Detect); Cannabinoid Screen Urine Not Detected (Not Detect); Cocaine Screen Urine Not Detected (Not Detect); Fentanyl, urine POSITIVE (Not Detect); Opiate Screen Urine Not Detected (Not Detect); Phencyclidine Screen Urine Not Detected (Not Detect)
[2022-07-10 14:22] LABS: Ethanol < 10 mg/dL
--- NOTE | 2022-07-10 15:33 | ECG_ITS ---
Test Reason : CHECK FOR PROLONG QT Blood Pressure : / mmHG Vent. Rate : 055 BPM Atrial Rate : 055 BPM P-R Int : 132 ms QRS Dur : 076 ms QT Int : 430 ms P-R-T Axes : 035 001 016 degrees QTc Int : 411 ms Sinus bradycardia Minimal voltage criteria for LVH, may be normal variant ( R in aVL ) Borderline ECG When compared with ECG of 15-JUN-2022 20:42, No significant change was found Referred By: Yoan Dia Electronically Signed By:Scottie Figueroa
[2022-07-10 15:54] LABS: Appearance Urine Clear; Color Urine Yellow; Glucose Urine UA Negative (Negative); Leukocyte Esterase Urine Negative (Negative); Nitrite Urine Negative (Negative); PH 5.5 (5.0-9.0); Specific Gravity - Urine <= 1.005 (1.005-1.025); Urine Blood Negative (Negative); Urine Ketones Negative (Negative); Urine Protein Negative (Neg-Trace)
[2022-07-10 16:05] LABS: MANUAL DIFF FLAG NO
[2022-07-10 16:06] VITALS: BP 119/72; PULSE 65; RESP 16; TEMP 36.6; O2SAT 98
[2022-07-10 16:07] LABS: Basophils Percent Auto 0.4 % (0-2); Eosinophils Absolute Auto 0.3 X10*3/uL (0.0-0.4); Eosinophils Percent Auto 3.5 % (0-4); Hemoglobin 11.2 g/dl (14.0-18.0); Imm Gran Abs Auto 0.03 X10*3/uL (0.00-0.03); Imm Gran Pct Auto 0.4 % (0.0-0.4); Lymphocytes Absolute Auto 2.7 X10*3/uL (1.2-4.9); Lymphocytes Percent Auto 32.9 % (20-40); Mean Corpuscular Hemoglobin 29.3 pg (27.0-33.0); Mean Corpuscular Volume 91.6 fL (80.0-98.0); Mean Platelet Volume 9.3 fL (9.4-12.4); Monocytes Absolute Auto 0.5 X10*3/uL (0.1-1.2); Monocytes Percent Auto 6.2 % (2-11); Neutrophils Absolute Auto 4.6 x10*3/uL (2.0-8.3); Neutrophils Percent Auto 56.6 % (45-73); Platelet Count 231 X10*3/uL (160-400); Red Blood Count 3.82 X10*6/uL (4.60-5.80); Red Cell Distribution Width 15.7 % (11.0-16.0); White Blood Count 8.2 X10*3/uL (4.8-10.8)
--- NOTE | 2022-07-10 16:17 | PC.NURSE ---
iv d/c, no abnormalities noted.
[2022-07-10 16:19] LABS: Anion Gap 13 (12-20); Blood Urea Nitrogen 3 mg/dL (9-16); Calcium 8.6 mg/dL (8.4-10.2); Carbon Dioxide 25 mmol/L (22-29); Chloride 111 mmol/L (96-108); Estimated Glomerular Filt Rate > 60; Glucose Random 90 mg/dL (60-115); Potassium 4.3 mmol/L (3.3-5.1); Sodium 145 mmol/L (135-145)
[2022-07-10 16:37] LABS: COVID-19 Test Negative (Negative); IDNOW Serial# 08D9AD1C
--- NOTE | 2022-07-10 19:02 | MHC.EDTECH ---
PT BELONGING IS IN [facility]ON .
--- NOTE | 2022-07-10 20:32 | PC.ADMIT ---
Pt is a 52 year male who is known to who is covid - and tox screen + for fentanyl. Per chart review, pt was assessed today by the CARE TEAM. in [facility]. Pt presented to the ED via ambulance after overdose on Fentanyl. Pt was given Narcan by EMS, on arrival endorsed thoughts of SI and self-harm. Pt was referred to the Recovery Team who met with pt. Pt endorses SI and command AH telling him to cut himself or jump out a window. He reports voices of males telling him malicious things. During admit, pt reported having AH of males. Pt reported that he has thoughts to hurt himself by any means necessary Pt reports 10/10 anxiety and depression. Provider notified of admission and orders. Start treatment plan and monitor for safety.
[2022-07-11] MEDS: Omeprazole 20 MG CAPSULE.DR PO (06:45)
[2022-07-11] MEDS: Benztropine Mesylate 0.5 MG TABLET PO (08:11)
[2022-07-11] MEDS: hydrOXYzine HCL 50 MG TABLET PO ×2 (08:11→19:27)
[2022-07-11 08:37] VITALS: BP 144/90; PULSE 78; RESP 16; TEMP 36.9; O2SAT 98
[2022-07-11 08:38] LABS: Alanine Aminotransferase 15 U/L (0-40); Albumin Level 3.8 g/dL (3.5-5.0); Alkaline Phosphatase 83 U/L (39-117); Anion Gap 12 (12-20); Aspartate Amino Transferase 23 U/L (5-37); Bilirubin Total 0.3 mg/dL (0.0-1.0); Blood Urea Nitrogen 6 mg/dL (9-16); Calcium 9.3 mg/dL (8.4-10.2); Carbon Dioxide 29 mmol/L (22-29); Chloride 103 mmol/L (96-108); Cholesterol 272 mg/dL; Creatinine Clr Calc Pharmacy 107.6; Estimated Glomerular Filt Rate > 60; Glucose Fasting 114 mg/dL (60-99); HDL Cholesterol 30 mg/dL; LDL Cholesterol Calculated 177 mg/dl; Potassium 4.4 mmol/L (3.3-5.1); Sodium 140 mmol/L (135-145); Total Protein 6.8 g/dL (6.5-8.0); Triglycerides 329 mg/dL
[2022-07-11] MEDS: Acetaminophen 325 MG TABLET 650 MG PO (11:30)
--- NOTE | 2022-07-11 11:56 | HO.PSYADMNOT ---
HPI Date of Service: 07/11/22 Chief Complaint: SI Sources of Information: patient interviewed, chart reviewed and crisis/core team assessment reviewed HPI Subjective Notes: Diggs Warning (given and shows understanding.) and Conditional Voluntary Narrative: Mr. Taveras is a 52 year-old male with hx of schizoaffective disorder and opioid use disorder. Pt was brought to [facility] ED via EMS after he OD on fentanyl. In the ED, pt was postive for fentanyl. He received narcan by EMS. On the unit, pt reports he recently relapsed on fentanyl. He reports hearing voices telling him to harm himself. Pt states that he then relapsed on fentanyl with intent to end his life. He reports feeling restless. He states he needs to pace, that at home feels like breaking things. He reports as he has reports in the past that he feels lonely and that feels that family do not check on him as often as he would like. He does state that for a year he has had his own apartment with help of [facility]. Pt denies use of substances for almost one year prior to relapsing this time. He reports feeling restless. He reports less AH. He denies SI/HI. However, he continues to report that he feels very depressed and anxious. Past Psychiatric History: -Pt psychiatrist is Dr. Bud Da Silva and he has OP services at [facility] -Hx of multiple psych inpatient admissions since 2011. Hx of CCS, ATS. -Past med trials: trazodone (facial swelling), doxepin (leg swelling), quetiapine (facial swelling), clonidine, amitriptyline, prolixin, remeron. Medical Evaluation Reviewed: Yes [facility] Medical History Alcohol dependence Anxiety Chest pain Derangement of symphysis pubis Dysphagia GERD (gastroesophageal reflux disease) Low TSH level Major depressive disorder, recurrent severe without psychotic features Opioid abuse Weight loss Surgical History H/O umbilical hernia repair History of colonoscopy History of cystoscopy Family History: Sister with chronic psychosis Social History: -Pt is homeless, has been staying with friends. He has an adult daughter, who he has some contact with. -Pt has a hx of legal issues for A&B -unemployed, has SSDI Diagnostics Vital Signs (24Hr): Vital Signs - 24 hr 07/10/22 13:59 07/10/22 16:06 07/11/22 08:37 Temperature 98.0 F 97.8 F 98.4 F Pulse Rate 59 65 78 Respiratory Rate 18 16 16 Blood Pressure 113/63 119/72 144/90 H Pulse Oximetry 94 98 98 Oxygen Delivery Method Room Air Room Air Room Air BMI result Body Mass Index 29.0 Labs 07/10/22 15:58 07/11/22 07:55 Labs: Laboratory Results - last 48 hr 07/10/22 07/10/22 07/10/22 06:55 13:58 13:58 WBC RBC Hgb Hct MCV MCH MCHC RDW Plt Count MPV Immature Gran % (Auto) Neut % (Auto) Lymph % (Auto) Harris % (Auto) Eos % (Auto) Baso % (Auto) Lymph # (Auto) Harris # (Auto) Eos # (Auto) Baso # (Auto) Abs Immat Gran (auto) Absolute Neuts (auto) Absolute Nucleated RBC Nucleated RBC % (auto) Sodium Potassium Chloride Carbon Dioxide Anion Gap BUN Creatinine Estim Creat Clear Calc Estimated GFR Random Glucose Fasting Glucose Calcium Total Bilirubin AST ALT Alkaline Phosphatase Total Protein Albumin Triglycerides Cholesterol LDL Cholesterol, Calc HDL Cholesterol Urine Color Urine Appearance Urine pH Ur Specific [place] Urine Protein Urine Glucose (UA) Urine Ketones Urine Blood Urine Nitrite Ur Leukocyte Esterase Urine Opiates Screen Not Detected Urine Fentanyl Screen POSITIVE H Ur Barbiturates Screen Not Detected Ur Phencyclidine Scrn Not Detected Ur Amphetamines Screen Not Detected U Benzodiazepines Scrn Not Detected Urine Cocaine Screen Not Detected U Marijuana (THC) Screen Not Detected Ethyl Alcohol < 10 COVID-19 (ERIN) Negative COVID-19 Clin Com See Note 07/10/22 07/10/22 07/10/22 13:58 15:58 15:58 WBC 8.2 RBC 3.82 L Hgb 11.2 L Hct 35.0 L MCV 91.6 MCH 29.3 MCHC 32.0 RDW 15.7 Plt Count 231 MPV 9.3 L Immature Gran % (Auto) 0.4 Neut % (Auto) 56.6 Lymph % (Auto) 32.9 Harris % (Auto) 6.2 Eos % (Auto) 3.5 Baso % (Auto) 0.4 Lymph # (Auto) 2.7 Harris # (Auto) 0.5 Eos # (Auto) 0.3 Baso # (Auto) 0.0 Abs Immat Gran (auto) 0.03 Absolute Neuts (auto) 4.6 Absolute Nucleated RBC 0.000 Nucleated RBC % (auto) 0.0 Sodium 145 Potassium 4.3 Chloride 111 H Carbon Dioxide 25 Anion Gap 13 BUN 3 L Creatinine 0.73 Estim Creat Clear Calc 112.0 Estimated GFR > 60 Random Glucose 90 Fasting Glucose Calcium 8.6 Total Bilirubin AST ALT Alkaline Phosphatase Total Protein Albumin Triglycerides Cholesterol LDL Cholesterol, Calc HDL Cholesterol Urine Color Yellow Urine Appearance Clear Urine pH 5.5 Ur Specific [place] <= 1.005 Urine Protein Negative Urine Glucose (UA) Negative Urine Ketones Negative Urine Blood Negative Urine Nitrite Negative Ur Leukocyte Esterase Negative Urine Opiates Screen Urine Fentanyl Screen Ur Barbiturates Screen Ur Phencyclidine Scrn Ur Amphetamines Screen U Benzodiazepines Scrn Urine Cocaine Screen U Marijuana (THC) Screen Ethyl Alcohol COVID-19 (ERIN) COVID-[place] 07/11/22 07:55 WBC RBC Hgb Hct MCV MCH MCHC RDW Plt Count MPV Immature Gran % (Auto) Neut % (Auto) Lymph % (Auto) Harris % (Auto) Eos % (Auto) Baso % (Auto) Lymph # (Auto) Harris # (Auto) Eos # (Auto) Baso # (Auto) Abs Immat Gran (auto) Absolute Neuts (auto) Absolute Nucleated RBC Nucleated RBC % (auto) Sodium 140 Potassium 4.4 Chloride 103 Carbon Dioxide 29 Anion Gap 12 BUN 6 L Creatinine 0.76 Estim Creat Clear Calc 107.6 Estimated GFR > 60 Random Glucose Fasting Glucose 114 H Calcium 9.3 D Total Bilirubin 0.3 AST 23 ALT 15 Alkaline Phosphatase 83 Total Protein 6.8 Albumin 3.8 Triglycerides 329 Cholesterol 272 LDL Cholesterol, Calc 177 HDL Cholesterol 30 Urine Color Urine Appearance Urine pH Ur Specific [place] Urine Protein Urine Glucose (UA) Urine Ketones Urine Blood Urine Nitrite Ur Leukocyte Esterase Urine Opiates Screen Urine Fentanyl Screen Ur Barbiturates Screen Ur Phencyclidine Scrn Ur Amphetamines Screen U Benzodiazepines Scrn Urine Cocaine Screen U Marijuana (THC) Screen Ethyl Alcohol COVID-19 (ERIN) COVID-19 [facility] Meds/Allergies Meds Home Medications Medication Instructions Recorded Confirmed Type hydroxyzine HCl 50 mg tablet 50 mg PO QID PRN anxiety 03/03/22 07/10/22 History benztropine 0.5 mg tablet 0.5 mg PO BID 07/10/22 07/10/22 History omeprazole 20 mg capsule,delayed 20 mg PO DAILY 07/10/22 07/10/22 History release amitriptyline 100 mg tablet 100 mg PO BEDTIME 07/11/22 07/11/22 History amitriptyline 25 mg tablet 25 mg PO BEDTIME 07/11/22 07/11/22 History atenolol 25 mg tablet 25 mg PO DAILY 07/11/22 07/11/22 History bethanechol chloride 50 mg tablet 50 mg PO BID 07/11/22 07/11/22 History cholecalciferol (vitamin D3) 25 25 mcg PO DAILY 07/11/22 07/11/22 History mcg (1,000 unit) tablet (Vitamin D3) clonidine HCl 0.2 mg tablet 0.2 mg PO BID 07/11/22 07/11/22 History diphenhydramine HCl 50 mg capsule 50 mg PO BEDTIME 07/11/22 07/11/22 History (Banophen) melatonin 10 mg tablet 10 mg PO BEDTIME 07/11/22 07/11/22 History metformin 500 mg tablet,extended 500 mg PO DAILY 07/11/22 07/11/22 History release 24 hr mirtazapine 30 mg tablet 30 mg PO BEDTIME 07/11/22 07/11/22 History pantoprazole 20 mg tablet,delayed 40 mg PO DAILY 07/11/22 07/11/22 History release perphenazine 2 mg tablet 5 mg PO BID 07/11/22 07/11/22 History tamsulosin 0.4 mg capsule 0.4 mg PO BEDTIME 07/11/22 07/11/22 History terazosin 5 mg capsule 5 mg PO BEDTIME 07/11/22 07/11/22 History zolpidem 12.5 mg tablet,extended 12.5 mg PO BEDTIME PRN Insomnia 07/11/22 07/11/22 History release,multiphase Allergies Allergies Allergy/AdvReac Type Severity Reaction Status Date / Time trazodone [TRAZODONE] Allergy Severe FACIAL Verified 06/15/22 20:42 SWELLING, swelling cat dander [CATS] Allergy Intermediate FACIAL Verified 06/15/22 20:42 ITCHING doxepin [DOXEPIN] Allergy Intermediate WEIGHT Verified 06/15/22 20:42 GAIN/LEG SWELLING Iodinated Contrast Media Allergy Intermediate ITCHING Verified 06/15/22 20:42 [IV DYE, IODINE CONTAINING CONTRAST ] nitroglycerin [NITROGLYCERIN] Allergy Unknown UNKNOWN Verified 06/15/22 20:42 tramadol [TRAMADOL] Allergy Unknown UNKNOWN, Verified 06/15/22 20:42 dry mouth ibuprofen [From MOTRIN] AdvReac Intermediate GI UPSET Verified 06/15/22 20:42 quetiapine [From SEROQUEL] AdvReac Intermediate FACIAL Verified 06/15/22 20:42 SWELLING aspirin [ASPIRIN] AdvReac Mild Stomach Verified 06/15/22 20:42 Upset Ibuprofen Allergy Unknown stomach Uncoded 06/15/22 20:42 ache IV contrast Allergy Unknown Unknown Uncoded 06/15/22 20:42 Motrin Allergy Unknown stomach Uncoded 06/15/22 20:42 pain Mental Status Exam Mental Status Exam Narrative: Appearance: wearing hospital, fair hygiene, in NAD Behavior:cooperative Speech:clear, normal rate/rhythm/volume, spontaneous Psychomotor: tapping foot, no overt retardation or agitation noted TP:mostly linear TC: feeling lonely, and feeling of restlessness that he reports get better with clonazepam Mood: terrible Affect:constricted, but brightens up SI: denies HI:denies VH/AH: derogatory voices but denies CAH today Delusions: no overt delusions. Alert, oriented x 3. Assessment & Plan Assessment & Plan (1) MDD (major depressive disorder), recurrent, severe, with psychosis: Status: Acute Code(s): F33.3 - Major depressive disorder, recurrent, severe with psychotic symptoms (2) Opioid use disorder: Status: Acute Code(s): F11.99 - Opioid use, unspecified with unspecified opioid-induced disorder Plan Mr. Taveras is a 52 year-old male with hx of cocaine, opioid use who self presented after his sister called EMS after he presented to her house after an intentional OD on fentanyl as suicide attempt. Utox positive for fentanyl. He denies cocaine and alcohol use. Pt reports increase AH, although better today. He reports feeling restless. He reports that prior to relapsing few days ago he had not used substances for a year. We discussed risks, benefits and alternative treatment options. Pt's current medication regimen is concerning for polypharmacy. Pt has hx of urinary retention in setting of BPH and has multiple anticholinergic medications such as amitriptyline, remeron, benadryl, cogentin. We discussed using amytriptilyne as both antidepressant and neuropathic pain/migraines. COntinue perphenazine for AH- monitor for akathisia as pt reports need to pace, restless. No need for ciwa as pt denies alcohol use. WIll give one time dose of clonazepam for anxiety today but pt understands not exterminator termite prescription. Pt also on ambien by OP psychiatrist- will continue that medication. PLAN 1. Admit to M5, 15 mins check, cv 2. Polypharmacy: stop remeron, will continue amitriptyline, continue perphenazine 3. Obtain collateral information 4. Aftercare planning. Patient educated on: diagnosis Informed Consent: understands Reason for continued inpatient stay Substantial Risk for: harm to self Statement Statement: I have reviewed the history and physical and performed a pertinent examination on my patient. No changes have occurred unless specified. If the History and Physical was not performed prior to admission, the Hospitalist's service will be consulted for completing the admission physical. Time Spent With Patient Time: Total time managing care of this patient today ____ minutes.
[2022-07-11] MEDS: atenoloL 25 MG TABLET PO (13:24)
[2022-07-11] MEDS: Cholecalciferol (Vitamin D3) 25 MCG TABLET PO (13:24)
[2022-07-11] MEDS: clonazePAM 0.5 MG TABLET PO (13:24)
[2022-07-11] MEDS: metFORMIN HCl ER 500 MG TAB.ER.24H PO (13:24)
[2022-07-11] MEDS: Perphenazine 2 MG TABLET 5 MG PO ×2 (13:24→19:27)
[2022-07-11 13:28] VITALS: BP 145/82; PULSE 73
[2022-07-11 16:26] VITALS: BP 138/82; PULSE 59; RESP 18; TEMP 36.2; O2SAT 100
[2022-07-11] MEDS: Amitriptyline HCl 50 MG TABLET 100 MG PO (19:26)
[2022-07-11] MEDS: Doxazosin Mesylate 2 MG TABLET 4 MG PO (19:26)
[2022-07-11] MEDS: Zolpidem Tartrate 5 MG TABLET PO (19:26)
[2022-07-11] MEDS: cloNIDine HCL 0.2 MG TABLET PO (19:26)
[2022-07-11] MEDS: Bethanechol Chloride 25 MG TABLET 50 MG PO (19:26)
[2022-07-11] MEDS: Tamsulosin HCL 0.4 MG CAPSULE PO (19:27)
[2022-07-11] MEDS: Melatonin 3 MG TABLET 9 MG PO (19:27)
[2022-07-12] MEDS: Omeprazole 20 MG CAPSULE.DR PO (06:15)
[2022-07-12] MEDS: Perphenazine 2 MG TABLET 5 MG PO ×2 (08:07→19:48)
[2022-07-12] MEDS: atenoloL 25 MG TABLET PO (08:08)
[2022-07-12] MEDS: Bethanechol Chloride 25 MG TABLET 50 MG PO ×2 (08:08→19:50)
[2022-07-12] MEDS: cloNIDine HCL 0.2 MG TABLET PO ×2 (08:08→19:44)
[2022-07-12] MEDS: Cholecalciferol (Vitamin D3) 25 MCG TABLET PO (08:08)
[2022-07-12] MEDS: metFORMIN HCl ER 500 MG TAB.ER.24H PO (08:08)
[2022-07-12] MEDS: Acetaminophen 325 MG TABLET 650 MG PO (08:42)
[2022-07-12 08:55] VITALS: BP 127/74; PULSE 80; RESP 18; TEMP 36.4; O2SAT 96
--- NOTE | 2022-07-12 11:01 | HO.PSYCHPN ---
Subjective Subjective Date of Service: 07/12/22 Reason For Visit: SI Interim History: met patient; discussed with team Patient reports he remains depressed and very anxious; also says he has auditory hallucinations. He thinks that much of it is due to withdrawal and that the AH will go way once withdrawals over. He asks to have a repeat dose of clonazepam that he got yesterday. Steamfitter Supervisor discussed this medication and explains that it will not be continued on discharge; patient said he clearly understands this and just needs it for a few days to deal with the anxiety of withdrawal. Mental Status Exam Mental Status Exam Narrative: Appearance: wearing hospital, fair hygiene, in NAD Behavior:cooperative Speech:clear, normal rate/rhythm/volume, spontaneous Psychomotor: tapping foot, no overt retardation or agitation noted TP:mostly linear TC: feeling lonely, and feeling of restlessness that he reports get better with clonazepam Mood: Depressed... anxious Affect:constricted, anxious SI: denies HI:denies VH/AH: derogatory voices but denies CAH today Delusions: no overt delusions. Alert, oriented x 3. Diagnostics Vital Signs (24Hr): Vital Signs - 24 hr 07/11/22 13:28 07/11/22 16:26 07/12/22 08:55 Temperature 97.1 F 97.6 F Pulse Rate 73 59 80 Respiratory Rate 18 18 Blood Pressure 145/82 H 138/82 127/74 Pulse Oximetry 100 96 Oxygen Delivery Method Room Air Room Air BMI result Body Mass Index 29.0 Labs 07/10/22 15:58 07/11/22 07:55 Labs: Laboratory Results - last 48 hr 07/10/22 07/10/22 07/10/22 06:55 13:58 13:58 WBC RBC Hgb Hct MCV MCH MCHC RDW Plt Count MPV Immature Gran % (Auto) Neut % (Auto) Lymph % (Auto) [place] % (Auto) Eos % (Auto) Baso % (Auto) Lymph # (Auto) [place] # (Auto) Eos # (Auto) Baso # (Auto) Abs Immat Gran (auto) Absolute Neuts (auto) Absolute Nucleated RBC Nucleated RBC % (auto) Sodium Potassium Chloride Carbon Dioxide Anion Gap BUN Creatinine Estim Creat Clear Calc Estimated GFR Random Glucose Fasting Glucose Calcium Total Bilirubin AST ALT Alkaline Phosphatase Total Protein Albumin Triglycerides Cholesterol LDL Cholesterol, Calc HDL Cholesterol Urine Color Urine Appearance Urine pH Ur Specific [place] Urine Protein Urine Glucose (UA) Urine Ketones Urine Blood Urine Nitrite Ur Leukocyte Esterase Urine Opiates Screen Not Detected Urine Fentanyl Screen POSITIVE H Ur Barbiturates Screen Not Detected Ur Phencyclidine Scrn Not Detected Ur Amphetamines Screen Not Detected U Benzodiazepines Scrn Not Detected Urine Cocaine Screen Not Detected U Marijuana (THC) Screen Not Detected Ethyl Alcohol < 10 COVID-19 (ERIN) Negative COVID-19 Clin Com See Note 07/10/22 07/10/22 07/10/22 13:58 15:58 15:58 WBC 8.2 RBC 3.82 L Hgb 11.2 L Hct 35.0 L MCV 91.6 MCH 29.3 MCHC 32.0 RDW 15.7 Plt Count 231 MPV 9.3 L Immature Gran % (Auto) 0.4 Neut % (Auto) 56.6 Lymph % (Auto) 32.9 Hendricks % (Auto) 6.2 Eos % (Auto) 3.5 Baso % (Auto) 0.4 Lymph # (Auto) 2.7 [place]ricks # (Auto) 0.5 Eos # (Auto) 0.3 Baso # (Auto) 0.0 Abs Immat Gran (auto) 0.03 Absolute Neuts (auto) 4.6 Absolute Nucleated RBC 0.000 Nucleated RBC % (auto) 0.0 Sodium 145 Potassium 4.3 Chloride 111 H Carbon Dioxide 25 Anion Gap 13 BUN 3 L Creatinine 0.73 Estim Creat Clear Calc 112.0 Estimated GFR > 60 Random Glucose 90 Fasting Glucose Calcium 8.6 Total Bilirubin AST ALT Alkaline Phosphatase Total Protein Albumin Triglycerides Cholesterol LDL Cholesterol, Calc HDL Cholesterol Urine Color Yellow Urine Appearance Clear Urine pH 5.5 Ur Specific [place] <= 1.005 Urine Protein Negative Urine Glucose (UA) Negative Urine Ketones Negative Urine Blood Negative Urine Nitrite Negative Ur Leukocyte Esterase Negative Urine Opiates Screen Urine Fentanyl Screen Ur Barbiturates Screen Ur Phencyclidine Scrn Ur Amphetamines Screen U Benzodiazepines Scrn Urine Cocaine Screen U Marijuana (THC) Screen Ethyl Alcohol COVID-19 (ERIN) COVID-19 Clin Com 07/11/22 07:55 WBC RBC Hgb Hct MCV MCH MCHC RDW Plt Count MPV Immature Gran % (Auto) Neut % (Auto) Lymph % (Auto) [place] % (Auto) Eos % (Auto) Baso % (Auto) Lymph # (Auto) [place] # (Auto) Eos # (Auto) Baso # (Auto) Abs Immat Gran (auto) Absolute Neuts (auto) Absolute Nucleated RBC Nucleated RBC % (auto) Sodium 140 Potassium 4.4 Chloride 103 Carbon Dioxide 29 Anion Gap 12 BUN 6 L Creatinine 0.76 Estim Creat Clear Calc 107.6 Estimated GFR > 60 Random Glucose Fasting Glucose 114 H Calcium 9.3 D Total Bilirubin 0.3 AST 23 ALT 15 Alkaline Phosphatase 83 Total Protein 6.8 Albumin 3.8 Triglycerides 329 Cholesterol 272 LDL Cholesterol, Calc 177 HDL Cholesterol 30 Urine Color Urine Appearance Urine pH Ur Specific [place] Urine Protein Urine Glucose (UA) Urine Ketones Urine Blood Urine Nitrite Ur Leukocyte Esterase Urine Opiates Screen Urine Fentanyl Screen Ur Barbiturates Screen Ur Phencyclidine Scrn Ur Amphetamines Screen U Benzodiazepines Scrn Urine Cocaine Screen U Marijuana (THC) Screen Ethyl Alcohol COVID-19 (ERIN) COVID-19 Clin Com Medications Medications Current Medications Acetaminophen (Acetaminophen 325 Mg Tablet) 650 mg PO Q6H PRN PRN Reason: Headache/Pain Mild Scale (1-3) Last Admin: 07/12/22 08:42 Dose: 650 mg Al Hydroxide/Mg Hydroxide (Magnesium Hydrox/Alum Hydrox 30 Ml Oral.Susp) 30 ml PO Q6H PRN PRN Reason: Heartburn/Nausea Amitriptyline HCl (Amitriptyline Hcl 50 Mg Tablet) 100 mg PO BEDTIME [facility] Last Admin: 07/11/22 19:26 Dose: 100 mg Atenolol (Atenolol 25 Mg Tablet) 25 mg PO DAILY [facility]; Protocol Last Admin: 07/12/22 08:08 Dose: 25 mg Bethanechol Chloride (Bethanechol Chloride 25 Mg Tablet) 50 mg PO BID JAMES Last Admin: 07/12/22 08:08 Dose: 50 mg Clonidine HCl (Clonidine Hcl 0.2 Mg Tablet) 0.2 mg PO BID JAMES; Protocol Last Admin: 07/12/22 08:08 Dose: 0.2 mg Diphenhydramine HCl (Diphenhydramine Hcl 25 Mg Capsule) 50 mg PO BEDTIME PRN PRN Reason: sleep Doxazosin Mesylate (Doxazosin Mesylate 2 Mg Tablet) 4 mg PO BEDTIME JAMES Last Admin: 07/11/22 19:26 Dose: 4 mg Hydroxyzine HCl (Hydroxyzine Hcl 25 Mg Tablet) 25 mg PO Q6H PRN PRN Reason: Anxiety Hydroxyzine HCl (Hydroxyzine Hcl 50 Mg Tablet) 50 mg PO QID PRN PRN Reason: anxiety Last Admin: 07/11/22 19:27 Dose: 50 mg Magnesium Hydroxide (Milk Of Magnesia 30 Ml Oral.Susp) 30 ml PO DAILY PRN PRN Reason: Constipation Melatonin (Melatonin 3 Mg Tablet) 9 mg PO BEDTIME [facility] Last Admin: 07/11/22 19:27 Dose: 9 mg Metformin HCl (Metformin Hcl Er 500 Mg Tab.Er.24h) 500 mg PO DAILY [facility] Last Admin: 07/12/22 08:08 Dose: 500 mg Omeprazole (Omeprazole 20 Mg Capsule.Dr) 20 mg PO DAILY@0630 [facility] Last Admin: 07/12/22 06:15 Dose: 20 mg Perphenazine (Perphenazine 2 Mg Tablet) 5 mg PO BID [facility] Last Admin: 07/12/22 08:07 Dose: 5 mg Tamsulosin HCl (Tamsulosin Hcl 0.4 Mg Capsule) 0.4 mg PO BEDTIME [facility] Last Admin: 07/11/22 19:27 Dose: 0.4 mg Vitamin D (Cholecalciferol (Vitamin D3) 25 Mcg Tablet) 25 mcg PO DAILY [facility] Last Admin: 07/12/22 08:08 Dose: 25 mcg Zolpidem Tartrate (Zolpidem Tartrate 5 Mg Tablet) 5 mg PO BEDTIME PRN PRN Reason: Insomnia Allergies Allergies Allergy/AdvReac Type Severity Reaction Status Date / Time trazodone [TRAZODONE] Allergy Severe FACIAL Verified 06/15/22 20:42 SWELLING, swelling cat dander [CATS] Allergy Intermediate FACIAL Verified 06/15/22 20:42 ITCHING doxepin [DOXEPIN] Allergy Intermediate WEIGHT Verified 06/15/22 20:42 GAIN/LEG SWELLING Iodinated Contrast Media Allergy Intermediate ITCHING Verified 06/15/22 20:42 [IV DYE, IODINE CONTAINING CONTRAST ] nitroglycerin [NITROGLYCERIN] Allergy Unknown UNKNOWN Verified 06/15/22 20:42 tramadol [TRAMADOL] Allergy Unknown UNKNOWN, Verified 06/15/22 20:42 dry mouth ibuprofen [From MOTRIN] AdvReac Intermediate GI UPSET Verified 06/15/22 20:42 quetiapine [From SEROQUEL] AdvReac Intermediate FACIAL Verified 06/15/22 20:42 SWELLING aspirin [ASPIRIN] AdvReac Mild Stomach Verified 06/15/22 20:42 Upset Ibuprofen Allergy Unknown stomach Uncoded 06/15/22 20:42 ache IV contrast Allergy Unknown Unknown Uncoded 06/15/22 20:42 Motrin Allergy Unknown stomach Uncoded 06/15/22 20:42 pain Assessment & Plan Assessment & Plan (1) MDD (major depressive disorder), recurrent, severe, with psychosis: Status: Acute Code(s): F33.3 - Major depressive disorder, recurrent, severe with psychotic symptoms (2) Opioid use disorder: Status: Acute Code(s): F11.99 - Opioid use, unspecified with unspecified opioid-induced disorder Plan Mr. Taveras is a 52 year-old male with hx of cocaine, opioid use who self presented after his sister called EMS after he presented to her house after an intentional OD on fentanyl as suicide attempt. Utox positive for fentanyl. He denies cocaine and alcohol use. Pt reports increase AH, although better today. He reports feeling restless. He reports that prior to relapsing few days ago he had not used substances for a year. We discussed risks, benefits and alternative treatment options. Pt's current medication regimen is concerning for polypharmacy. Pt has hx of urinary retention in setting of BPH and has multiple anticholinergic medications such as amitriptyline, remeron, benadryl, cogentin. We discussed using amytriptilyne as both antidepressant and neuropathic pain/migraines. COntinue perphenazine for AH- monitor for akathisia as pt reports need to pace, restless. No need for ciwa as pt denies alcohol use. WIll give one time dose of clonazepam for anxiety today but pt understands not [facility] prescription. Pt also on ambien by OP psychiatrist- will continue that medication. Hospital course: 07/12 patient remains depressed and anxious; no SI; junior underwriter agrees to start clonazepam 0.5 daily for couple days to help with withdrawal symptoms and associated anxiety; patient clearly understands this will not be continued on discharge. Denies any alcohol use. Patient thinks that auditory hallucinations are mood congruent; will thus continue current medication regimen PLAN 1. Admit to M5, 15 mins check, cv 2. Polypharmacy: stop remeron, will continue amitriptyline, continue perphenazine 3. Obtain collateral information 4. Aftercare planning. Patient educated on: diagnosis, medication risk/benefits and substance abuse Informed Consent: understands Reason for contiued inpatient stay Substantial Risk for: rapid decompensation Time Spent With Patient Time: Total time managing care of this patient today ____ minutes.
[2022-07-12] MEDS: hydrOXYzine HCL 50 MG TABLET PO ×2 (11:58→15:52)
[2022-07-12] MEDS: clonazePAM 0.5 MG TABLET PO (12:48)
--- NOTE | 2022-07-12 13:05 | MHC.RECOVRN ---
This promotion writer met w/ patient, patient was awake, alert, watching t.v. Patient requesting to start on MTD, requests referral to [facility] to continue MTD maintenance. Patient reports using leobardo 3 bags, 3-5 x's per week for past 2 years. Patient states in the past, had been stable on MTD 80mg at [facility] for two years. Patient reports no other substances used. Patient reports nausea, diarrhea, body aches. Patient during CHARITO eval was sitting comfortably, no withdrawal s/s noted. This promotion writer reviewed patients request with Provider.
[2022-07-12 17:46] VITALS: BP 97/52; PULSE 72; TEMP 36.6; O2SAT 100
[2022-07-12] MEDS: Melatonin 3 MG TABLET 9 MG PO (19:43)
[2022-07-12] MEDS: Doxazosin Mesylate 2 MG TABLET 4 MG PO (19:44)
[2022-07-12] MEDS: Tamsulosin HCL 0.4 MG CAPSULE PO (19:45)
[2022-07-12] MEDS: Amitriptyline HCl 50 MG TABLET 100 MG PO (19:50)
[2022-07-12] MEDS: Zolpidem Tartrate 5 MG TABLET PO (19:55)
[2022-07-13] MEDS: Omeprazole 20 MG CAPSULE.DR PO (06:03)
[2022-07-13 07:59] VITALS: BP 105/70; PULSE 74
[2022-07-13] MEDS: Perphenazine 2 MG TABLET 5 MG PO ×2 (08:09→19:33)
[2022-07-13] MEDS: Bethanechol Chloride 25 MG TABLET 50 MG PO ×2 (08:09→19:37)
[2022-07-13] MEDS: cloNIDine HCL 0.2 MG TABLET PO ×2 (08:10→19:37)
[2022-07-13] MEDS: atenoloL 25 MG TABLET PO (08:10)
[2022-07-13] MEDS: clonazePAM 0.5 MG TABLET PO (08:10)
[2022-07-13] MEDS: Cholecalciferol (Vitamin D3) 25 MCG TABLET PO (08:11)
[2022-07-13] MEDS: metFORMIN HCl ER 500 MG TAB.ER.24H PO (09:26)
--- NOTE | 2022-07-13 10:42 | P.PNPSI_ITS ---
Subjective Subjective Date of Service: 07/13/22 Reason For Visit: SI Interim History: Met with patient; discussed with team Patient says he is a little better and thinks the clonazepam is helping; thinks withdrawal is not as bad anymore. Still has auditory hallucinations but continues to think that these will go way as he detox is. Of note, patient is out in the milieu more often, intermittently socializing. Starting to eat more Mental Status Exam Mental Status Exam Narrative: Appearance: wearing hospital, fair hygiene, in NAD Behavior:cooperative Speech:clear, normal rate/rhythm/volume, spontaneous Psychomotor: tapping foot, no overt retardation or agitation noted TP:mostly linear TC: feeling lonely, and feeling of restlessness that he reports get better with clonazepam Mood: Depressed... anxious Affect:constricted, anxious SI: denies HI:denies VH/AH: derogatory voices but denies CAH today Delusions: no overt delusions. Alert, oriented x 3. Diagnostics Vital Signs (24Hr): Vital Signs - 24 hr 07/12/22 17:46 07/13/22 07:59 Temperature 97.9 F Pulse Rate 72 74 Blood Pressure 97/52 L 105/70 Pulse Oximetry 100 BMI result Body Mass Index 29.0 Labs 07/10/22 15:58 07/11/22 07:55 Medications Medications Current Medications Acetaminophen (Acetaminophen 325 Mg Tablet) 650 mg PO Q6H PRN PRN Reason: Headache/Pain Mild Scale (1-3) Last Admin: 07/12/22 08:42 Dose: 650 mg Al Hydroxide/Mg Hydroxide (Magnesium Hydrox/Alum Hydrox 30 Ml Oral.Susp) 30 ml PO Q6H PRN PRN Reason: Heartburn/Nausea Amitriptyline HCl (Amitriptyline Hcl 50 Mg Tablet) 100 mg PO BEDTIME [facility] Last Admin: 07/12/22 19:50 Dose: 100 mg Atenolol (Atenolol 25 Mg Tablet) 25 mg PO DAILY [facility]; Protocol Last Admin: 07/13/22 08:10 Dose: 25 mg Bethanechol Chloride (Bethanechol Chloride 25 Mg Tablet) 50 mg PO BID [facility] Last Admin: 07/13/22 08:09 Dose: 50 mg Clonazepam (Clonazepam 0.5 Mg Tablet) 0.5 mg PO DAILY [facility] Stop: 07/14/22 11:20 Last Admin: 07/13/22 08:10 Dose: 0.5 mg Clonidine HCl (Clonidine Hcl 0.2 Mg Tablet) 0.2 mg PO BID [facility]; Protocol Last Admin: 07/13/22 08:10 Dose: 0.2 mg Diphenhydramine HCl (Diphenhydramine Hcl 25 Mg Capsule) 50 mg PO BEDTIME PRN PRN Reason: sleep Doxazosin Mesylate (Doxazosin Mesylate 2 Mg Tablet) 4 mg PO BEDTIME [facility] Last Admin: 07/12/22 19:44 Dose: 4 mg Hydroxyzine HCl (Hydroxyzine Hcl 25 Mg Tablet) 25 mg PO Q6H PRN PRN Reason: Anxiety Hydroxyzine HCl (Hydroxyzine Hcl 50 Mg Tablet) 50 mg PO QID PRN PRN Reason: anxiety Last Admin: 07/12/22 15:52 Dose: 50 mg Magnesium Hydroxide (Milk Of Magnesia 30 Ml Oral.Susp) 30 ml PO DAILY PRN PRN Reason: Constipation Melatonin (Melatonin 3 Mg Tablet) 9 mg PO BEDTIME [facility] Last Admin: 07/12/22 19:43 Dose: 9 mg Metformin HCl (Metformin Hcl Er 500 Mg Tab.Er.24h) 500 mg PO DAILY [facility] Last Admin: 07/13/22 09:26 Dose: 500 mg Omeprazole (Omeprazole 20 Mg Capsule.Dr) 20 mg PO DAILY@0630 [facility] Last Admin: 07/13/22 06:03 Dose: 20 mg Perphenazine (Perphenazine 2 Mg Tablet) 5 mg PO BID [facility] Last Admin: 07/13/22 08:09 Dose: 5 mg Tamsulosin HCl (Tamsulosin Hcl 0.4 Mg Capsule) 0.4 mg PO BEDTIME [facility] Last Admin: 07/12/22 19:45 Dose: 0.4 mg Vitamin D (Cholecalciferol (Vitamin D3) 25 Mcg Tablet) 25 mcg PO DAILY [facility] Last Admin: 07/13/22 08:11 Dose: 25 mcg Zolpidem Tartrate (Zolpidem Tartrate 5 Mg Tablet) 5 mg PO BEDTIME PRN PRN Reason: Insomnia Last Admin: 07/12/22 19:55 Dose: 5 mg Allergies Allergies Allergy/AdvReac Type Severity Reaction Status Date / Time trazodone [TRAZODONE] Allergy Severe FACIAL Verified 06/15/22 20:42 SWELLING, swelling cat dander [CATS] Allergy Intermediate FACIAL Verified 06/15/22 20:42 ITCHING doxepin [DOXEPIN] Allergy Intermediate WEIGHT Verified 06/15/22 20:42 GAIN/LEG SWELLING Iodinated Contrast Media Allergy Intermediate ITCHING Verified 06/15/22 20:42 [IV DYE, IODINE CONTAINING CONTRAST ] nitroglycerin [NITROGLYCERIN] Allergy Unknown UNKNOWN Verified 06/15/22 20:42 tramadol [TRAMADOL] Allergy Unknown UNKNOWN, Verified 06/15/22 20:42 dry mouth ibuprofen [From MOTRIN] AdvReac Intermediate GI UPSET Verified 06/15/22 20:42 quetiapine [From SEROQUEL] AdvReac Intermediate FACIAL Verified 06/15/22 20:42 SWELLING aspirin [ASPIRIN] AdvReac Mild Stomach Verified 06/15/22 20:42 Upset Ibuprofen Allergy Unknown stomach Uncoded 06/15/22 20:42 ache IV contrast Allergy Unknown Unknown Uncoded 06/15/22 20:42 Motrin Allergy Unknown stomach Uncoded 06/15/22 20:42 pain Assessment & Plan Assessment & Plan (1) MDD (major depressive disorder), recurrent, severe, with psychosis: Status: Acute Code(s): F33.3 - Major depressive disorder, recurrent, severe with psychotic symptoms (2) Opioid use disorder: Status: Acute Code(s): F11.99 - Opioid use, unspecified with unspecified opioid-induced disorder Plan Mr. Taveras is a 52 year-old male with hx of cocaine, opioid use who self presented after his sister called EMS after he presented to her house after an intentional OD on fentanyl as suicide attempt. Utox positive for fentanyl. He denies cocaine and alcohol use. Pt reports increase AH, although better today. He reports feeling restless. He reports that prior to relapsing few days ago he had not used substances for a year. We discussed risks, benefits and alternative treatment options. Pt's current medication regimen is concerning for poly pharmacy. Pt has hx of urinary retention in setting of BPH and has multiple anticholinergic medications such as amitriptyline, remeron, benadryl, cogentin. We discussed using amytriptilyne as both antidepressant and neuropathic pain/migraines. COntinue perphenazine for AH- monitor for akathisia as pt reports need to pace, restless. No need for ciwa as pt denies alcohol use. WIll give one time dose of clonazepam for anxiety today but pt understands not senior care prescription. Pt also on ambien by OP psychiatrist- will continue that medication. Hospital course: 07/12 patient remains depressed and anxious; no SI; music writer agrees to start clonazepam 0.5 daily for couple days to help with withdrawal symptoms and associated anxiety; patient clearly understands this will not be continued on discharge. Denies any alcohol use. Patient thinks that auditory hallucinations are mood congruent; will thus continue current medication regimen 07/13 continue current treatment plan PLAN 1. Admit to M5, 15 mins check, cv Clonazepam 0.5 mg daily for few days 2. Polypharmacy: stop remeron, will continue amitriptyline, continue perphenazine 3. Obtain collateral information 4. Aftercare planning. Patient educated on: diagnosis, medication risk/benefits and substance abuse Informed Consent: understands Reason for contiued inpatient stay Substantial Risk for: rapid decompensation Time Spent With Patient Time: Total time managing care of this patient today ____ minutes.
--- NOTE | 2022-07-13 12:44 | MHC.RECOVRN ---
This ghost writer followed up with patient, per Provider Meghan Stewart instruction, patient to follow up at [facility] clinic in the community and/or if indicated, can start BUP. Patient requesting BUP. Patient reports N,V,D, bodyaches, chills. No withdrawal s/s observable to t/w. Reviewed with shipping clerk crating who reports patient had reported withdrawal s/s yesterday 07/12 in the a.m, has been resting comfortably since 07/12 in the afternoon. Provider aware.
[2022-07-13] MEDS: hydrOXYzine HCL 25 MG TABLET PO (13:58)
[2022-07-13] MEDS: hydrOXYzine HCL 50 MG TABLET PO (13:58)
[2022-07-13 16:40] VITALS: BP 109/65; PULSE 73; TEMP 36.8; O2SAT 100
[2022-07-13] MEDS: Gabapentin 300 MG CAPSULE PO (16:40)
[2022-07-13 19:33] VITALS: BP 122/71; PULSE 65
[2022-07-13] MEDS: Doxazosin Mesylate 2 MG TABLET 4 MG PO (19:35)
[2022-07-13] MEDS: Melatonin 3 MG TABLET 9 MG PO (19:35)
[2022-07-13] MEDS: Tamsulosin HCL 0.4 MG CAPSULE PO (19:35)
[2022-07-13] MEDS: Amitriptyline HCl 50 MG TABLET 100 MG PO (19:38)
[2022-07-13] MEDS: Zolpidem Tartrate 5 MG TABLET PO (19:38)
--- NOTE | 2022-07-13 19:46 | PM.EVENT ---
Event Note Date of Service: 07/13/22 Event Note: Addiction follow up Patient seen by spike machine feeder over the weekend. Requesting methadone start. This database report writer does not feel patient is appropriate for methadone RN provided information about Suboxone as an alternative. Patient agreeable. Plan: Suboxone 2mg --1/2 film to start monitor for sedation, dizziness, etc. No further doses if patient presents that way If he tolerates. Then dose can be 2mg QD following initial dose Time Spent With Patient Time: Total time managing care of this patient today ____ minutes.
[2022-07-14] MEDS: Omeprazole 20 MG CAPSULE.DR PO (06:23)
[2022-07-14 07:59] VITALS: BP 111/71; PULSE 80; RESP 16; TEMP 37.1; O2SAT 100
[2022-07-14] MEDS: Buprenorphine/Naloxone 2/0.5mg FILM 0.5 FILM SUBLINGUAL (08:16)
[2022-07-14] MEDS: metFORMIN HCl ER 500 MG TAB.ER.24H PO (08:17)
[2022-07-14] MEDS: Perphenazine 2 MG TABLET 5 MG PO (08:17)
[2022-07-14] MEDS: cloNIDine HCL 0.2 MG TABLET PO ×2 (08:18→19:45)
[2022-07-14] MEDS: Bethanechol Chloride 25 MG TABLET 50 MG PO ×2 (08:18→19:45)
[2022-07-14] MEDS: atenoloL 25 MG TABLET PO (08:18)
[2022-07-14] MEDS: Cholecalciferol (Vitamin D3) 25 MCG TABLET PO (08:18)
[2022-07-14] MEDS: clonazePAM 0.5 MG TABLET PO (08:18)
--- NOTE | 2022-07-14 12:11 | MHC.RECOVRN ---
Met with pt after receiving 1 mg Suboxone this morning. Pt awake, alert, easily engages in conversation, had been sitting in kitchen. Pt reports withdrawal symptoms have subsided, does report slight fatigue. Pt would like to continue Suboxone.
[2022-07-14] MEDS: hydrOXYzine HCL 50 MG TABLET PO (13:53)
[2022-07-14] MEDS: Gabapentin 100 MG CAPSULE PO ×2 (14:47→20:03)
--- NOTE | 2022-07-14 15:27 | HO.PSYCHPN ---
Subjective Subjective Date of Service: 07/14/22 Reason For Visit: SI Subjective Notes: Conditional Voluntary Healthcare Proxy: No Guardianship: No Medical Problems Affecting Mental Status: No Interim History: Operating Room Nurse present. Pt found Gabapentin helpful and asks that it be scheduled. 100 mg tid initiated. Described precipitants to admission, feeling alone, relapsed, overdosed, went to sister's home and awoke in hospital. Pt reports he was supposed to meet a worker from [employer] on Thursday to assist him in finding assistance in cleaning due to his back injury. Pt not thinking he needs residential care, reports meds are weak, asks that Ambien be increased as he takes 12.5 mg CR (pharmacy reports he cannot have a dose above 5 mg). Discussed med changes. Medication Compliance: Yes Side effects from medications: No Attending Groups: Intermittent Review of Systems Acute medical concerns: No Medical Review of Systems: unchanged Mental Status Exam Mental Status Exam Patient Appearance: Appropriate Patient Orientation: Person, Place, Time and Situation Level of Consciousness: Alert Patient Behavior: Appropriate, Talkative, Cooperative and Good Eye Contact Mood Description: Anxious Affect Description: Anxious Patient Cognition Impaired: No Ability to Follow Directions: Good Speech Pattern: Spontaneous Speech Memory Description: Intact Hallucinations: Auditory Delusions: Paranoid Ideation Perceptual Disturbances: Derealization Thought Process: Intact Thought Content: positive for Intact and positive for Suicidal Ideation (denies today) Depressive Symptoms: Increased Anxiety and Thoughts of /Suicide (denies) Judgement: Fair Diagnostics Vital Signs (24Hr): Vital Signs - 24 hr 07/13/22 16:40 07/13/22 19:33 07/14/22 07:59 Temperature 98.2 F 98.8 F Pulse Rate 73 65 80 Respiratory Rate 16 Blood Pressure 109/65 122/71 111/71 Pulse Oximetry 100 100 Oxygen Delivery Method Room Air Room Air BMI result Body Mass Index 29.0 Labs 07/10/22 15:58 07/11/22 07:55 Medications Medications Current Medications Acetaminophen (Acetaminophen 325 Mg Tablet) 650 mg PO Q6H PRN PRN Reason: Headache/Pain Mild Scale (1-3) Last Admin: 07/12/22 08:42 Dose: 650 mg Al Hydroxide/Mg Hydroxide (Magnesium Hydrox/Alum Hydrox 30 Ml Oral.Susp) 30 ml PO Q6H PRN PRN Reason: Heartburn/Nausea Amitriptyline HCl (Amitriptyline Hcl 50 Mg Tablet) 100 mg PO BEDTIME [facility] Last Admin: 07/13/22 19:38 Dose: 100 mg Atenolol (Atenolol 25 Mg Tablet) 25 mg PO DAILY [facility]; Protocol Last Admin: 07/14/22 08:18 Dose: 25 mg Bethanechol Chloride (Bethanechol Chloride 25 Mg Tablet) 50 mg PO BID [facility] Last Admin: 07/14/22 08:18 Dose: 50 mg Buprenorphine/Naloxone (Buprenorphine/Naloxone 2/0.5mg Film) 1 film SUBLINGUAL DAILY [facility] Clonidine HCl (Clonidine Hcl 0.2 Mg Tablet) 0.2 mg PO BID [facility]; Protocol Last Admin: 07/14/22 08:18 Dose: 0.2 mg Diphenhydramine HCl (Diphenhydramine Hcl 25 Mg Capsule) 50 mg PO BEDTIME PRN PRN Reason: sleep Doxazosin Mesylate (Doxazosin Mesylate 2 Mg Tablet) 4 mg PO BEDTIME [facility] Last Admin: 07/13/22 19:35 Dose: 4 mg Gabapentin (Gabapentin 100 Mg Capsule) 100 mg PO TID@0900,1300,1900 [facility] Hydroxyzine HCl (Hydroxyzine Hcl 25 Mg Tablet) 25 mg PO Q6H PRN PRN Reason: Anxiety Last Admin: 07/13/22 13:58 Dose: 25 mg Hydroxyzine HCl (Hydroxyzine Hcl 50 Mg Tablet) 50 mg PO QID PRN PRN Reason: anxiety Last Admin: 07/14/22 13:53 Dose: 50 mg Magnesium Hydroxide (Milk Of Magnesia 30 Ml Oral.Susp) 30 ml PO DAILY PRN PRN Reason: Constipation Melatonin (Melatonin 3 Mg Tablet) 9 mg PO BEDTIME [facility] Last Admin: 07/13/22 19:35 Dose: 9 mg Metformin HCl (Metformin Hcl Er 500 Mg Tab.Er.24h) 500 mg PO DAILY [facility] Last Admin: 07/14/22 08:17 Dose: 500 mg Omeprazole (Omeprazole 20 Mg Capsule.Dr) 20 mg PO DAILY@0630 [facility] Last Admin: 07/14/22 06:23 Dose: 20 mg Perphenazine (Perphenazine 8 Mg Tablet) 8 mg PO BID [facility] Tamsulosin HCl (Tamsulosin Hcl 0.4 Mg Capsule) 0.4 mg PO BEDTIME [facility] Last Admin: 07/13/22 19:35 Dose: 0.4 mg Vitamin D (Cholecalciferol (Vitamin D3) 25 Mcg Tablet) 25 mcg PO DAILY [facility] Last Admin: 07/14/22 08:18 Dose: 25 mcg Zolpidem Tartrate (Zolpidem Tartrate 5 Mg Tablet) 5 mg PO BEDTIME PRN PRN Reason: Insomnia Allergies Allergies Allergy/AdvReac Type Severity Reaction Status Date / Time trazodone [TRAZODONE] Allergy Severe FACIAL Verified 06/15/22 20:42 SWELLING, swelling cat dander [CATS] Allergy Intermediate FACIAL Verified 06/15/22 20:42 ITCHING doxepin [DOXEPIN] Allergy Intermediate WEIGHT Verified 06/15/22 20:42 GAIN/LEG SWELLING Iodinated Contrast Media Allergy Intermediate ITCHING Verified 06/15/22 20:42 [IV DYE, IODINE CONTAINING CONTRAST ] nitroglycerin [NITROGLYCERIN] Allergy Unknown UNKNOWN Verified 06/15/22 20:42 tramadol [TRAMADOL] Allergy Unknown UNKNOWN, Verified 06/15/22 20:42 dry mouth ibuprofen [From MOTRIN] AdvReac Intermediate GI UPSET Verified 06/15/22 20:42 quetiapine [From SEROQUEL] AdvReac Intermediate FACIAL Verified 06/15/22 20:42 SWELLING aspirin [ASPIRIN] AdvReac Mild Stomach Verified 06/15/22 20:42 Upset Ibuprofen Allergy Unknown stomach Uncoded 06/15/22 20:42 ache IV contrast Allergy Unknown Unknown Uncoded 06/15/22 20:42 Motrin Allergy Unknown stomach Uncoded 06/15/22 20:42 pain Assessment & Plan Assessment & Plan (1) MDD (major depressive disorder), recurrent, severe, with psychosis: Status: Acute Code(s): F33.3 - Major depressive disorder, recurrent, severe with psychotic symptoms (2) Opioid use disorder: Status: Acute Code(s): F11.99 - Opioid use, unspecified with unspecified opioid-induced disorder Plan Mr. Taveras is a 52 year-old male with hx of cocaine, opioid use who self presented after his sister called EMS after he presented to her house after an intentional OD on fentanyl as suicide attempt. Utox positive for fentanyl. He denies cocaine and alcohol use. Pt reports increase AH, although better today. He reports feeling restless. He reports that prior to relapsing few days ago he had not used substances for a year. We discussed risks, benefits and alternative treatment options. Pt's current medication regimen is concerning for polypharmacy. Pt has hx of urinary retention in setting of BPH and has multiple anticholinergic medications such as amitriptyline, remeron, benadryl, cogentin. We discussed using amytriptilyne as both antidepressant and neuropathic pain/migraines. COntinue perphenazine for AH- monitor for akathisia as pt reports need to pace, restless. No need for ciwa as pt denies alcohol use. WIll give one time dose of clonazepam for anxiety today but pt understands not termite treater prescription. Pt also on ambien by OP psychiatrist- will continue that medication. Hospital course: 07/12 patient remains depressed and anxious; no SI; magazine writer agrees to start clonazepam 0.5 daily for couple days to help with withdrawal symptoms and associated anxiety; patient clearly understands this will not be continued on discharge. Denies any alcohol use. Patient thinks that auditory hallucinations are mood congruent; will thus continue current medication regimen 07/13 continue current treatment plan PLAN 1. Admit to M5, 15 mins check, cv Clonazepam 0.5 mg daily for few days 2. Polypharmacy: stop remeron, will continue amitriptyline, continue perphenazine 3. Obtain collateral information 4. Aftercare planning. 07/14/22- Pt requests Ambien increase-per pharmacy this cannot be done. He uses CR 12.5 as an OP. Gabapentin 100 mg tid Increase Trilafon to 8 mg bid Patient educated on: medication risk/benefits and therapeutic strategies Informed Consent: understands Reason for contiued inpatient stay Substantial Risk for: rapid decompensation Time Spent With Patient Time: Total time managing care of this patient today ____ minutes.
[2022-07-14 16:35] VITALS: BP 110/63; PULSE 59; RESP 14; TEMP 36.2
[2022-07-14] MEDS: Melatonin 3 MG TABLET 9 MG PO (19:44)
[2022-07-14] MEDS: Doxazosin Mesylate 2 MG TABLET 4 MG PO (19:44)
[2022-07-14 19:45] VITALS: BP 113/66; PULSE 70; RESP 14; TEMP 36.8
[2022-07-14] MEDS: Amitriptyline HCl 50 MG TABLET 100 MG PO (19:45)
[2022-07-14] MEDS: Tamsulosin HCL 0.4 MG CAPSULE PO (19:45)
[2022-07-14] MEDS: Perphenazine 8 MG TABLET PO (19:45)
[2022-07-14] MEDS: Zolpidem Tartrate 5 MG TABLET PO (19:46)
[2022-07-15 06:00] VITALS: BP 113/68; PULSE 68; RESP 16; TEMP 36.6; O2SAT 98
[2022-07-15] MEDS: Omeprazole 20 MG CAPSULE.DR PO (06:24)
[2022-07-15] MEDS: cloNIDine HCL 0.2 MG TABLET PO ×2 (09:00→19:37)
[2022-07-15] MEDS: Buprenorphine/Naloxone 2/0.5mg FILM 1 FILM SUBLINGUAL (09:00)
[2022-07-15] MEDS: Perphenazine 8 MG TABLET PO ×2 (09:00→19:10)
[2022-07-15] MEDS: Cholecalciferol (Vitamin D3) 25 MCG TABLET PO (09:00)
[2022-07-15] MEDS: Bethanechol Chloride 25 MG TABLET 50 MG PO ×2 (09:00→19:10)
[2022-07-15] MEDS: metFORMIN HCl ER 500 MG TAB.ER.24H PO (09:00)
[2022-07-15] MEDS: atenoloL 25 MG TABLET PO (09:00)
[2022-07-15] MEDS: Gabapentin 100 MG CAPSULE PO ×2 (11:14→13:37)
[2022-07-15] MEDS: hydrOXYzine HCL 50 MG TABLET PO (11:34)
--- NOTE | 2022-07-15 12:01 | MHC.RECOVRN ---
Met with pt to follow up regarding Suboxone titration. Pt awake, alert, present in milieu. Pt reporting positive effect with 2 mg this morning, denies side effects including lethargy. Plan to continue with 2 mg daily. Pt denies questions or concerns at this time.
[2022-07-15] MEDS: hydrOXYzine HCL 25 MG TABLET PO ×2 (13:37→19:11)
--- NOTE | 2022-07-15 14:21 | HO.PSYCHPN ---
Subjective Subjective Date of Service: 07/15/22 Reason For Visit: SI Subjective Notes: Conditional Voluntary Healthcare Proxy: No Guardianship: No Medical Problems Affecting Mental Status: No Interim History: Met with [place] and [facility] [place]. Pt asking for Klonopin-ordered 0.5 mg daily prn. Discussed that we will not give this on discharge. Pt reports he is so-so . Sleep is improving, Gabapentin is helpful. Discussed 5-6 days ago feeling his heart race and feeling scared. No sx since that time, no sx currently. EKG reviewed. Medication Compliance: Yes Side effects from medications: No Attending Groups: Intermittent Review of Systems Acute medical concerns: No Medical Review of Systems: unchanged Mental Status Exam Mental Status Exam Patient Appearance: Appropriate Patient Orientation: Person, Place, Time and Situation Level of Consciousness: Alert Patient Behavior: Appropriate, Talkative, Cooperative and Good Eye Contact Mood Description: Anxious Affect Description: Anxious Patient Cognition Impaired: No Ability to Follow Directions: Good Speech Pattern: Spontaneous Speech Memory Description: Intact Hallucinations: Auditory Perceptual Disturbances: Derealization Thought Process: Intact Thought Content: positive for Intact and positive for Suicidal Ideation (denies today) Depressive Symptoms: Increased Anxiety and Thoughts of /Suicide (denies) Judgement: Fair Diagnostics Vital Signs (24Hr): Vital Signs - 24 hr 07/14/22 16:35 07/14/22 19:45 07/15/22 06:00 Temperature 97.2 F 98.2 F 98 F Pulse Rate 59 70 68 Respiratory Rate 14 14 16 Blood Pressure 110/63 113/66 113/68 Pulse Oximetry 98 Oxygen Delivery Method Room Air BMI result Body Mass Index 29.0 Labs 07/10/22 15:58 07/11/22 07:55 Medications Medications Current Medications Acetaminophen (Acetaminophen 325 Mg Tablet) 650 mg PO Q6H PRN PRN Reason: Headache/Pain Mild Scale (1-3) Last Admin: 07/12/22 08:42 Dose: 650 mg Al Hydroxide/Mg Hydroxide (Magnesium Hydrox/Alum Hydrox 30 Ml Oral.Susp) 30 ml PO Q6H PRN PRN Reason: Heartburn/Nausea Amitriptyline HCl (Amitriptyline Hcl 50 Mg Tablet) 100 mg PO BEDTIME JAMES Last Admin: 07/14/22 19:45 Dose: 100 mg Atenolol (Atenolol 25 Mg Tablet) 25 mg PO DAILY JAMES; Protocol Last Admin: 07/15/22 09:00 Dose: 25 mg Bethanechol Chloride (Bethanechol Chloride 25 Mg Tablet) 50 mg PO BID [facility] Last Admin: 07/15/22 09:00 Dose: 50 mg Buprenorphine/Naloxone (Buprenorphine/Naloxone 2/0.5mg Film) 1 film SUBLINGUAL DAILY [facility] Last Admin: 07/15/22 09:00 Dose: 1 film Clonidine HCl (Clonidine Hcl 0.2 Mg Tablet) 0.2 mg PO BID [facility]; Protocol Last Admin: 07/15/22 09:00 Dose: 0.2 mg Diphenhydramine HCl (Diphenhydramine Hcl 25 Mg Capsule) 50 mg PO BEDTIME PRN PRN Reason: sleep Doxazosin Mesylate (Doxazosin Mesylate 2 Mg Tablet) 4 mg PO BEDTIME [facility] Last Admin: 07/14/22 19:44 Dose: 4 mg Gabapentin (Gabapentin 100 Mg Capsule) 100 mg PO TID@0900,1300,1900 [facility] Last Admin: 07/15/22 13:37 Dose: 100 mg Hydroxyzine HCl (Hydroxyzine Hcl 25 Mg Tablet) 25 mg PO Q6H PRN PRN Reason: Anxiety Last Admin: 07/15/22 13:37 Dose: 25 mg Hydroxyzine HCl (Hydroxyzine Hcl 50 Mg Tablet) 50 mg PO QID PRN PRN Reason: anxiety Last Admin: 07/15/22 11:34 Dose: 50 mg Magnesium Hydroxide (Milk Of Magnesia 30 Ml Oral.Susp) 30 ml PO DAILY PRN PRN Reason: Constipation Melatonin (Melatonin 3 Mg Tablet) 9 mg PO BEDTIME [facility] Last Admin: 07/14/22 19:44 Dose: 9 mg Metformin HCl (Metformin Hcl Er 500 Mg Tab.Er.24h) 500 mg PO DAILY [facility] Last Admin: 07/15/22 09:00 Dose: 500 mg Omeprazole (Omeprazole 20 Mg Capsule.Dr) 20 mg PO DAILY@0630 [facility] Last Admin: 07/15/22 06:24 Dose: 20 mg Perphenazine (Perphenazine 8 Mg Tablet) 8 mg PO BID [facility] Last Admin: 07/15/22 09:00 Dose: 8 mg Tamsulosin HCl (Tamsulosin Hcl 0.4 Mg Capsule) 0.4 mg PO BEDTIME [facility] Last Admin: 07/14/22 19:45 Dose: 0.4 mg Vitamin D (Cholecalciferol (Vitamin D3) 25 Mcg Tablet) 25 mcg PO DAILY JAMES Last Admin: 07/15/22 09:00 Dose: 25 mcg Zolpidem Tartrate (Zolpidem Tartrate 5 Mg Tablet) 5 mg PO BEDTIME PRN PRN Reason: Insomnia Last Admin: 07/14/22 19:46 Dose: 5 mg Allergies Allergies Allergy/AdvReac Type Severity Reaction Status Date / Time trazodone [TRAZODONE] Allergy Severe FACIAL Verified 06/15/22 20:42 SWELLING, swelling cat dander [CATS] Allergy Intermediate FACIAL Verified 06/15/22 20:42 ITCHING doxepin [DOXEPIN] Allergy Intermediate WEIGHT Verified 06/15/22 20:42 GAIN/LEG SWELLING Iodinated Contrast Media Allergy Intermediate ITCHING Verified 06/15/22 20:42 [IV DYE, IODINE CONTAINING CONTRAST ] nitroglycerin [NITROGLYCERIN] Allergy Unknown UNKNOWN Verified 06/15/22 20:42 tramadol [TRAMADOL] Allergy Unknown UNKNOWN, Verified 06/15/22 20:42 dry mouth ibuprofen [From MOTRIN] AdvReac Intermediate GI UPSET Verified 06/15/22 20:42 quetiapine [From SEROQUEL] AdvReac Intermediate FACIAL Verified 06/15/22 20:42 SWELLING aspirin [ASPIRIN] AdvReac Mild Stomach Verified 06/15/22 20:42 Upset Ibuprofen Allergy Unknown stomach Uncoded 06/15/22 20:42 ache IV contrast Allergy Unknown Unknown Uncoded 06/15/22 20:42 Motrin Allergy Unknown stomach Uncoded 06/15/22 20:42 pain Assessment & Plan Assessment & Plan (1) MDD (major depressive disorder), recurrent, severe, with psychosis: Status: Acute Code(s): F33.3 - Major depressive disorder, recurrent, severe with psychotic symptoms (2) Opioid use disorder: Status: Acute Code(s): F11.99 - Opioid use, unspecified with unspecified opioid-induced disorder Plan Mr. Taveras is a 52 year-old male with hx of cocaine, opioid use who self presented after his sister called EMS after he presented to her house after an intentional OD on fentanyl as suicide attempt. Utox positive for fentanyl. He denies cocaine and alcohol use. Pt reports increase AH, although better today. He reports feeling restless. He reports that prior to relapsing few days ago he had not used substances for a year. We discussed risks, benefits and alternative treatment options. Pt's current medication regimen is concerning for polypharmacy. Pt has hx of urinary retention in setting of BPH and has multiple anticholinergic medications such as amitriptyline, remeron, benadryl, cogentin. We discussed using amytriptilyne as both antidepressant and neuropathic pain/migraines. COntinue perphenazine for AH- monitor for akathisia as pt reports need to pace, restless. No need for ciwa as pt denies alcohol use. WIll give one time dose of clonazepam for anxiety today but pt understands not detention prescription. Pt also on ambien by OP psychiatrist- will continue that medication. Hospital course: 07/12 patient remains depressed and anxious; no SI; business writer agrees to start clonazepam 0.5 daily for couple days to help with withdrawal symptoms and associated anxiety; patient clearly understands this will not be continued on discharge. Denies any alcohol use. Patient thinks that auditory hallucinations are mood congruent; will thus continue current medication regimen 07/13 continue current treatment plan PLAN 1. Admit to M5, 15 mins check, cv Clonazepam 0.5 mg daily for few days 2. Polypharmacy: stop remeron, will continue amitriptyline, continue perphenazine 3. Obtain collateral information 4. Aftercare planning. 07/14/22- Pt requests Ambien increase-per pharmacy this cannot be done. He uses [facility] 12.5 as an OP. Gabapentin 100 mg tid Increase Trilafon to 8 mg bid 07/15/22- Klonopin 0.5 mg daily prn while in pt Patient educated on: medication risk/benefits and therapeutic strategies Informed Consent: understands Reason for contiued inpatient stay Substantial Risk for: rapid decompensation Time Spent With Patient Time: Total time managing care of this patient today ____ minutes.
[2022-07-15] MEDS: Doxazosin Mesylate 2 MG TABLET 4 MG PO (19:11)
[2022-07-15] MEDS: Tamsulosin HCL 0.4 MG CAPSULE PO (19:11)
[2022-07-15] MEDS: Amitriptyline HCl 50 MG TABLET 100 MG PO (19:11)
[2022-07-15] MEDS: Zolpidem Tartrate 5 MG TABLET PO (19:11)
[2022-07-15] MEDS: Melatonin 3 MG TABLET 9 MG PO (19:11)
[2022-07-15 19:30] VITALS: BP 106/70; PULSE 65
[2022-07-16 08:15] VITALS: BP 138/77; PULSE 82; RESP 20; TEMP 35.7; O2SAT 100
[2022-07-16] MEDS: Bethanechol Chloride 25 MG TABLET 50 MG PO ×2 (08:35→19:31)
[2022-07-16] MEDS: cloNIDine HCL 0.2 MG TABLET PO ×2 (08:35→19:30)
[2022-07-16] MEDS: Perphenazine 8 MG TABLET PO ×2 (08:35→19:30)
[2022-07-16] MEDS: Cholecalciferol (Vitamin D3) 25 MCG TABLET PO (08:35)
[2022-07-16] MEDS: Buprenorphine/Naloxone 2/0.5mg FILM 1 FILM SUBLINGUAL (08:35)
[2022-07-16] MEDS: metFORMIN HCl ER 500 MG TAB.ER.24H PO (08:35)
[2022-07-16] MEDS: atenoloL 25 MG TABLET PO (08:35)
[2022-07-16] MEDS: Omeprazole 20 MG CAPSULE.DR PO (08:36)
[2022-07-16] MEDS: Gabapentin 100 MG CAPSULE PO ×3 (08:56→19:30)
[2022-07-16] MEDS: clonazePAM 0.5 MG TABLET PO (08:56)
[2022-07-16] MEDS: Nicotine Polacrilex 2 MG GUM 4 MG BUCCAL (11:16)
--- NOTE | 2022-07-16 15:10 | P.PNPSI_ITS ---
Subjective Subjective Date of Service: 07/16/22 Reason For Visit: SI Subjective Notes: Conditional Voluntary Healthcare Proxy: No Guardianship: No Medical Problems Affecting Mental Status: No Interim History: Met with pt and [facility] [place] language interpreter. Discussed his wanting higher doses of Klonopin. Reviewed rationale for minimal doses. Education offered. Unsure if regime helps-finds only high dose Ambien and benzodiazepines are helpful. Discussed sleep options for assistance. Discussed wanting new housing-referred to [facility] and [facility] teams assigned. Discussed wanting a new out patient prescriber who will prescribe klonopin- referred to his OP team. Discussed discharge for 07/18 and follow up. Medication Compliance: Yes Side effects from medications: No Attending Groups: Intermittent Review of Systems Acute medical concerns: No Medical Review of Systems: unchanged Mental Status Exam Mental Status Exam Patient Appearance: Appropriate Patient Orientation: Person, Place, Time and Situation Level of Consciousness: Alert Patient Behavior: Appropriate, Talkative, Cooperative and Good Eye Contact Mood Description: Anxious Affect Description: Anxious Patient Cognition Impaired: No Ability to Follow Directions: Good Speech Pattern: Spontaneous Speech Memory Description: Intact Hallucinations: Auditory Perceptual Disturbances: Derealization Thought Process: Intact Thought Content: positive for Intact and positive for Suicidal Ideation (denies today) Depressive Symptoms: Increased Anxiety and Thoughts of /Suicide (denies) Judgement: Fair Diagnostics Vital Signs (24Hr): Vital Signs - 24 hr 07/15/22 19:30 07/16/22 08:15 Temperature 96.3 F L Pulse Rate 65 82 Respiratory Rate 20 Blood Pressure 106/70 138/77 Pulse Oximetry 100 Oxygen Delivery Method Room Air BMI result Body Mass Index 29.0 Labs 07/10/22 15:58 07/11/22 07:55 Medications Medications Current Medications Acetaminophen (Acetaminophen 325 Mg Tablet) 650 mg PO Q6H PRN PRN Reason: Headache/Pain Mild Scale (1-3) Last Admin: 07/12/22 08:42 Dose: 650 mg Al Hydroxide/Mg Hydroxide (Magnesium Hydrox/Alum Hydrox 30 Ml Oral.Susp) 30 ml PO Q6H PRN PRN Reason: Heartburn/Nausea Amitriptyline HCl (Amitriptyline Hcl 50 Mg Tablet) 100 mg PO BEDTIME JAMES Last Admin: 07/15/22 19:11 Dose: 100 mg Atenolol (Atenolol 25 Mg Tablet) 25 mg PO DAILY JAMES; Protocol Last Admin: 07/16/22 08:35 Dose: 25 mg Bethanechol Chloride (Bethanechol Chloride 25 Mg Tablet) 50 mg PO BID [facility] Last Admin: 07/16/22 08:35 Dose: 50 mg Buprenorphine/Naloxone (Buprenorphine/Naloxone 2/0.5mg Film) 1 film SUBLINGUAL DAILY [facility] Last Admin: 07/16/22 08:35 Dose: 1 film Clonazepam (Clonazepam 0.5 Mg Tablet) 0.5 mg PO DAILY PRN PRN Reason: Anxiety Last Admin: 07/16/22 08:56 Dose: 0.5 mg Clonidine HCl (Clonidine Hcl 0.2 Mg Tablet) 0.2 mg PO BID [facility]; Protocol Last Admin: 07/16/22 08:35 Dose: 0.2 mg Diphenhydramine HCl (Diphenhydramine Hcl 25 Mg Capsule) 50 mg PO BEDTIME PRN PRN Reason: sleep Doxazosin Mesylate (Doxazosin Mesylate 2 Mg Tablet) 4 mg PO BEDTIME [facility] Last Admin: 07/15/22 19:11 Dose: 4 mg Gabapentin (Gabapentin 100 Mg Capsule) 100 mg PO TID@0900,1300,1900 [facility] Last Admin: 07/16/22 12:35 Dose: 100 mg Hydroxyzine HCl (Hydroxyzine Hcl 25 Mg Tablet) 25 mg PO Q6H PRN PRN Reason: Anxiety Last Admin: 07/15/22 19:11 Dose: 25 mg Hydroxyzine HCl (Hydroxyzine Hcl 50 Mg Tablet) 50 mg PO QID PRN PRN Reason: anxiety Last Admin: 07/15/22 11:34 Dose: 50 mg Magnesium Hydroxide (Milk Of Magnesia 30 Ml Oral.Susp) 30 ml PO DAILY PRN PRN Reason: Constipation Melatonin (Melatonin 3 Mg Tablet) 9 mg PO BEDTIME [facility] Last Admin: 07/15/22 19:11 Dose: 9 mg Metformin HCl (Metformin Hcl Er 500 Mg Tab.Er.24h) 500 mg PO DAILY [facility] Last Admin: 07/16/22 08:35 Dose: 500 mg Nicotine Polacrilex (Nicotine Polacrilex 2 Mg Gum) 4 mg BUCCAL Q2H PRN PRN Reason: Nicotine Cravings Last Admin: 07/16/22 11:16 Dose: 4 mg Omeprazole (Omeprazole 20 Mg Capsule.Dr) 20 mg PO DAILY@0630 [facility] Last Admin: 07/16/22 08:36 Dose: 20 mg Perphenazine (Perphenazine 8 Mg Tablet) 8 mg PO BID [facility] Last Admin: 07/16/22 08:35 Dose: 8 mg Tamsulosin HCl (Tamsulosin Hcl 0.4 Mg Capsule) 0.4 mg PO BEDTIME [facility] Last Admin: 07/15/22 19:11 Dose: 0.4 mg Vitamin D (Cholecalciferol (Vitamin D3) 25 Mcg Tablet) 25 mcg PO DAILY [facility] Last Admin: 07/16/22 08:35 Dose: 25 mcg Zolpidem Tartrate (Zolpidem Tartrate 5 Mg Tablet) 5 mg PO BEDTIME PRN PRN Reason: Insomnia Last Admin: 07/15/22 19:11 Dose: 5 mg Allergies Allergies Allergy/AdvReac Type Severity Reaction Status Date / Time trazodone [TRAZODONE] Allergy Severe FACIAL Verified 06/15/22 20:42 SWELLING, swelling cat dander [CATS] Allergy Intermediate FACIAL Verified 06/15/22 20:42 ITCHING doxepin [DOXEPIN] Allergy Intermediate WEIGHT Verified 06/15/22 20:42 GAIN/LEG SWELLING Iodinated Contrast Media Allergy Intermediate ITCHING Verified 06/15/22 20:42 [IV DYE, IODINE CONTAINING CONTRAST ] nitroglycerin [NITROGLYCERIN] Allergy Unknown UNKNOWN Verified 06/15/22 20:42 tramadol [TRAMADOL] Allergy Unknown UNKNOWN, Verified 06/15/22 20:42 dry mouth ibuprofen [From MOTRIN] AdvReac Intermediate GI UPSET Verified 06/15/22 20:42 quetiapine [From SEROQUEL] AdvReac Intermediate FACIAL Verified 06/15/22 20:42 SWELLING aspirin [ASPIRIN] AdvReac Mild Stomach Verified 06/15/22 20:42 Upset Ibuprofen Allergy Unknown stomach Uncoded 06/15/22 20:42 ache IV contrast Allergy Unknown Unknown Uncoded 06/15/22 20:42 Motrin Allergy Unknown stomach Uncoded 06/15/22 20:42 pain Assessment & Plan Assessment & Plan (1) MDD (major depressive disorder), recurrent, severe, with psychosis: Status: Acute Code(s): F33.3 - Major depressive disorder, recurrent, severe with psychotic symptoms (2) Opioid use disorder: Status: Acute Code(s): F11.99 - Opioid use, unspecified with unspecified opioid-induced disorder Plan Mr. Taveras is a 52 year-old male with hx of cocaine, opioid use who self presented after his sister called EMS after he presented to her house after an intentional OD on fentanyl as suicide attempt. Utox positive for fentanyl. He denies cocaine and alcohol use. Pt reports increase AH, although better today. He reports feeling restless. He reports that prior to relapsing few days ago he had not used substances for a year. We discussed risks, benefits and alternative treatment options. Pt's current medication regimen is concerning for polypharmacy. Pt has hx of urinary retention in setting of BPH and has multiple anticholinergic medications such as amitriptyline, remeron, benadryl, cogentin. We discussed using amytriptilyne as both antidepressant and neuropathic pain/migraines. COntinue perphenazine for AH- monitor for akathisia as pt reports need to pace, restless. No need for ciwa as pt denies alcohol use. WIll give one time dose of clonazepam for anxiety today but pt understands not salvage determiner prescription. Pt also on ambien by OP psychiatrist- will continue that medication. Hospital course: 07/12 patient remains depressed and anxious; no SI; poem writer agrees to start clonazepam 0.5 daily for couple days to help with withdrawal symptoms and associated anxiety; patient clearly understands this will not be continued on discharge. Denies any alcohol use. Patient thinks that auditory hallucinations are mood congruent; will thus continue current medication regimen 07/13 continue current treatment plan PLAN 1. Admit to M5, 15 mins check, cv Clonazepam 0.5 mg daily for few days 2. Polypharmacy: stop remeron, will continue amitriptyline, continue perphenazine 3. Obtain collateral information 4. Aftercare planning. 07/14/22- Pt requests Ambien increase-per pharmacy this cannot be done. He uses [facility] 12.5 as an OP. Gabapentin 100 mg tid Increase Trilafon to 8 mg bid 07/15/22- Klonopin 0.5 mg daily prn while in pt 07/16/22- Remeron 7.5 mg HS trial Continue current plan Discharge 07/18/22. Patient educated on: medication risk/benefits and therapeutic strategies Informed Consent: further education needed Reason for contiued inpatient stay Substantial Risk for: rapid decompensation Time Spent With Patient Time: Total time managing care of this patient today ____ minutes.
[2022-07-16 16:28] VITALS: BP 105/65; PULSE 72; RESP 18; O2SAT 97
[2022-07-16] MEDS: Melatonin 3 MG TABLET 9 MG PO (19:30)
[2022-07-16] MEDS: Mirtazapine 7.5 MG TABLET PO (19:30)
[2022-07-16] MEDS: Amitriptyline HCl 50 MG TABLET 100 MG PO (19:30)
[2022-07-16] MEDS: Tamsulosin HCL 0.4 MG CAPSULE PO (19:31)
[2022-07-16] MEDS: Doxazosin Mesylate 2 MG TABLET 4 MG PO (19:31)
[2022-07-16] MEDS: Zolpidem Tartrate 5 MG TABLET PO (19:34)
[2022-07-17 07:00] VITALS: BMI 27.8
[2022-07-17] MEDS: Buprenorphine/Naloxone 2/0.5mg FILM 1 FILM SUBLINGUAL (08:07)
[2022-07-17] MEDS: Bethanechol Chloride 25 MG TABLET 50 MG PO ×2 (08:07→18:50)
[2022-07-17] MEDS: metFORMIN HCl ER 500 MG TAB.ER.24H PO (08:07)
[2022-07-17] MEDS: Perphenazine 8 MG TABLET PO ×2 (08:08→18:51)
[2022-07-17] MEDS: Omeprazole 20 MG CAPSULE.DR PO (08:08)
[2022-07-17] MEDS: cloNIDine HCL 0.2 MG TABLET PO ×2 (08:08→18:51)
[2022-07-17] MEDS: atenoloL 25 MG TABLET PO (08:08)
[2022-07-17] MEDS: Cholecalciferol (Vitamin D3) 25 MCG TABLET PO (08:08)
[2022-07-17 08:15] VITALS: BP 134/66; PULSE 75; RESP 18; TEMP 36.4; O2SAT 97
[2022-07-17] MEDS: clonazePAM 0.5 MG TABLET PO (08:25)
[2022-07-17] MEDS: Gabapentin 100 MG CAPSULE PO ×3 (09:29→18:51)
[2022-07-17] MEDS: hydrOXYzine HCL 50 MG TABLET PO (15:56)
--- NOTE | 2022-07-17 17:29 | HO.PSYCHPN ---
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 Reports anxiety, however states he is prepared for discharge. Review of medications. Plans Suboxone therapy with [facility] and will return to providers in place prior to admission. Pt discussed pain meds, sleep meds, anxiety meds. Discussed taking care in not being on addictive medications due to variable risks he has to become dependent. Discussed alternatives. No further changes in his regime today per pt request. Medication Compliance: Yes Side effects from medications: No Attending Groups: Intermittent Review of Systems Acute medical concerns: No Medical Review of Systems: unchanged Mental Status Exam Mental Status Exam Patient Appearance: Appropriate Patient Orientation: Person, Place, Time and Situation Level of Consciousness: Alert Patient Behavior: Appropriate, Talkative, Cooperative and Good Eye Contact Mood Description: Anxious Affect Description: Anxious Patient Cognition Impaired: No Ability to Follow Directions: Good Speech Pattern: Spontaneous Speech Memory Description: Intact Hallucinations: Auditory Perceptual Disturbances: Derealization Thought Process: Intact Thought Content: positive for Intact and positive for Suicidal Ideation (denies today) Depressive Symptoms: Increased Anxiety and Thoughts of /Suicide (denies) Judgement: Fair Diagnostics Vital Signs (24Hr): Vital Signs - 24 hr 07/17/22 08:15 Temperature 97.5 F Pulse Rate 75 Respiratory Rate 18 Blood Pressure 134/66 Pulse Oximetry 97 Oxygen Delivery Method Room Air BMI result Body Mass Index 27.8 Labs 07/10/22 15:58 07/11/22 07:55 Medications Medications Current Medications Acetaminophen (Acetaminophen 325 Mg Tablet) 650 mg PO Q6H PRN PRN Reason: Headache/Pain Mild Scale (1-3) Last Admin: 07/12/22 08:42 Dose: 650 mg Al Hydroxide/Mg Hydroxide (Magnesium Hydrox/Alum Hydrox 30 Ml Oral.Susp) 30 ml PO Q6H PRN PRN Reason: Heartburn/Nausea Amitriptyline HCl (Amitriptyline Hcl 50 Mg Tablet) 100 mg PO BEDTIME [facility] Last Admin: 07/16/22 19:30 Dose: 100 mg Atenolol (Atenolol 25 Mg Tablet) 25 mg PO DAILY JAMES; Protocol Last Admin: 07/17/22 08:08 Dose: 25 mg Bethanechol Chloride (Bethanechol Chloride 25 Mg Tablet) 50 mg PO BID [facility] Last Admin: 07/17/22 08:07 Dose: 50 mg Buprenorphine/Naloxone (Buprenorphine/Naloxone 2/0.5mg Film) 1 film SUBLINGUAL DAILY [facility] Last Admin: 07/17/22 08:07 Dose: 1 film Clonazepam (Clonazepam 0.5 Mg Tablet) 0.5 mg PO DAILY PRN PRN Reason: Anxiety Last Admin: 07/17/22 08:25 Dose: 0.5 mg Clonidine HCl (Clonidine Hcl 0.2 Mg Tablet) 0.2 mg PO BID [facility]; Protocol Last Admin: 07/17/22 08:08 Dose: 0.2 mg Diphenhydramine HCl (Diphenhydramine Hcl 25 Mg Capsule) 50 mg PO BEDTIME PRN PRN Reason: sleep Doxazosin Mesylate (Doxazosin Mesylate 2 Mg Tablet) 4 mg PO BEDTIME [facility] Last Admin: 07/16/22 19:31 Dose: 4 mg Gabapentin (Gabapentin 100 Mg Capsule) 100 mg PO TID@0900,1300,1900 [facility] Last Admin: 07/17/22 12:28 Dose: 100 mg Hydroxyzine HCl (Hydroxyzine Hcl 25 Mg Tablet) 25 mg PO Q6H PRN PRN Reason: Anxiety Last Admin: 07/15/22 19:11 Dose: 25 mg Hydroxyzine HCl (Hydroxyzine Hcl 50 Mg Tablet) 50 mg PO QID PRN PRN Reason: anxiety Last Admin: 07/17/22 15:56 Dose: 50 mg Magnesium Hydroxide (Milk Of Magnesia 30 Ml Oral.Susp) 30 ml PO DAILY PRN PRN Reason: Constipation Melatonin (Melatonin 3 Mg Tablet) 9 mg PO BEDTIME [facility] Last Admin: 07/16/22 19:30 Dose: 9 mg Metformin HCl (Metformin Hcl Er 500 Mg Tab.Er.24h) 500 mg PO DAILY [facility] Last Admin: 07/17/22 08:07 Dose: 500 mg Mirtazapine (Mirtazapine 7.5 Mg Tablet) 7.5 mg PO BEDTIME [facility] Last Admin: 07/16/22 19:30 Dose: 7.5 mg Nicotine Polacrilex (Nicotine Polacrilex 2 Mg Gum) 4 mg BUCCAL Q2H PRN PRN Reason: Nicotine Cravings Last Admin: 07/16/22 11:16 Dose: 4 mg Omeprazole (Omeprazole 20 Mg Capsule.Dr) 20 mg PO DAILY@0630 [facility] Last Admin: 07/17/22 08:08 Dose: 20 mg Perphenazine (Perphenazine 8 Mg Tablet) 8 mg PO BID [facility] Last Admin: 07/17/22 08:08 Dose: 8 mg Tamsulosin HCl (Tamsulosin Hcl 0.4 Mg Capsule) 0.4 mg PO BEDTIME [facility] Last Admin: 07/16/22 19:31 Dose: 0.4 mg Vitamin D (Cholecalciferol (Vitamin D3) 25 Mcg Tablet) 25 mcg PO DAILY [facility] Last Admin: 07/17/22 08:08 Dose: 25 mcg Zolpidem Tartrate (Zolpidem Tartrate 5 Mg Tablet) 5 mg PO BEDTIME PRN PRN Reason: Insomnia Last Admin: 07/16/22 19:34 Dose: 5 mg Allergies Allergies Allergy/AdvReac Type Severity Reaction Status Date / Time trazodone [TRAZODONE] Allergy Severe FACIAL Verified 06/15/22 20:42 SWELLING, swelling cat dander [CATS] Allergy Intermediate FACIAL Verified 06/15/22 20:42 ITCHING doxepin [DOXEPIN] Allergy Intermediate WEIGHT Verified 06/15/22 20:42 GAIN/LEG SWELLING Iodinated Contrast Media Allergy Intermediate ITCHING Verified 06/15/22 20:42 [IV DYE, IODINE CONTAINING CONTRAST ] nitroglycerin [NITROGLYCERIN] Allergy Unknown UNKNOWN Verified 06/15/22 20:42 tramadol [TRAMADOL] Allergy Unknown UNKNOWN, Verified 06/15/22 20:42 dry mouth ibuprofen [From MOTRIN] AdvReac Intermediate GI UPSET Verified 06/15/22 20:42 quetiapine [From SEROQUEL] AdvReac Intermediate FACIAL Verified 06/15/22 20:42 SWELLING aspirin [ASPIRIN] AdvReac Mild Stomach Verified 06/15/22 20:42 Upset Ibuprofen Allergy Unknown stomach Uncoded 06/15/22 20:42 ache IV contrast Allergy Unknown Unknown Uncoded 06/15/22 20:42 Motrin Allergy Unknown stomach Uncoded 06/15/22 20:42 pain Assessment & Plan Assessment & Plan (1) MDD (major depressive disorder), recurrent, severe, with psychosis: Status: Acute Code(s): F33.3 - Major depressive disorder, recurrent, severe with psychotic symptoms (2) Opioid use disorder: Status: Acute Code(s): F11.99 - Opioid use, unspecified with unspecified opioid-induced disorder Plan Mr. Taveras is a 52 year-old male with hx of cocaine, opioid use who self presented after his sister called EMS after he presented to her house after an intentional OD on fentanyl as suicide attempt. Utox positive for fentanyl. He denies cocaine and alcohol use. Pt reports increase AH, although better today. He reports feeling restless. He reports that prior to relapsing few days ago he had not used substances for a year. We discussed risks, benefits and alternative treatment options. Pt's current medication regimen is concerning for polypharmacy. Pt has hx of urinary retention in setting of BPH and has multiple anticholinergic medications such as amitriptyline, remeron, benadryl, cogentin. We discussed using amytriptilyne as both antidepressant and neuropathic pain/migraines. COntinue perphenazine for AH- monitor for akathisia as pt reports need to pace, restless. No need for ciwa as pt denies alcohol use. 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 Pt also on ambien by OP psychiatrist- will continue that medication. Hospital course: 07/12 patient remains depressed and anxious; no SI; script writer agrees to start clonazepam 0.5 daily for couple days to help with withdrawal symptoms and associated anxiety; patient clearly understands this will not be continued on discharge. Denies any alcohol use. Patient thinks that auditory hallucinations are mood congruent; will thus continue current medication regimen 07/13 continue current treatment plan PLAN 1. Admit to [facility], 15 mins check, cv Clonazepam 0.5 mg daily for few days 2. Polypharmacy: stop remeron, will continue amitriptyline, continue perphenazine 3. Obtain collateral information 4. Aftercare planning. 07/14/22- Pt requests Ambien increase-per pharmacy this cannot be done. He uses CR 12.5 as an OP. Gabapentin 100 mg tid Increase Trilafon to 8 mg bid 07/15/22- Klonopin 0.5 mg daily prn while in pt 07/16/22- Remeron 7.5 mg HS trial Continue current plan Discharge 07/18/22. 07/17/22- Dischrge 07/18/22. Patient educated on: medication risk/benefits Informed Consent: understands Reason for contiued inpatient stay Substantial Risk for: rapid decompensation Time Spent With Patient Time: Total time managing care of this patient today ____ minutes.
[2022-07-17 18:48] VITALS: BP 118/72; PULSE 78
[2022-07-17] MEDS: Zolpidem Tartrate 5 MG TABLET PO (18:50)
[2022-07-17] MEDS: Amitriptyline HCl 50 MG TABLET 100 MG PO (18:50)
[2022-07-17] MEDS: Melatonin 3 MG TABLET 9 MG PO (18:50)
[2022-07-17] MEDS: Mirtazapine 7.5 MG TABLET PO (18:50)
[2022-07-17] MEDS: Tamsulosin HCL 0.4 MG CAPSULE PO (18:51)
[2022-07-17] MEDS: Doxazosin Mesylate 2 MG TABLET 4 MG PO (18:51)
[2022-07-18] MEDS: Omeprazole 20 MG CAPSULE.DR PO (06:38)
[2022-07-18] MEDS: atenoloL 25 MG TABLET PO (08:20)
[2022-07-18] MEDS: cloNIDine HCL 0.2 MG TABLET PO (08:20)
[2022-07-18] MEDS: metFORMIN HCl ER 500 MG TAB.ER.24H PO (08:20)
[2022-07-18] MEDS: Bethanechol Chloride 25 MG TABLET 50 MG PO (08:20)
[2022-07-18] MEDS: Perphenazine 8 MG TABLET PO (08:21)
[2022-07-18] MEDS: Cholecalciferol (Vitamin D3) 25 MCG TABLET PO (08:21)
[2022-07-18] MEDS: clonazePAM 0.5 MG TABLET PO (08:21)
[2022-07-18] MEDS: Buprenorphine/Naloxone 2/0.5mg FILM 1 FILM SUBLINGUAL (08:21)
[2022-07-18] MEDS: Gabapentin 100 MG CAPSULE PO (08:21)
[2022-07-18 09:05] VITALS: BP 105/70; PULSE 93; RESP 18; TEMP 36.7; O2SAT 98
[2022-07-18 09:07] LABS: Creatinine Clr Calc Pharmacy 85.4; Estimated Glomerular Filt Rate > 60
--- NOTE | 2022-07-18 15:49 | PM.PSYDC ---
DS: Providers Provider Date of Service: 07/18/22 Date of admission: 07/10/22 19:35 Date of discharge: 07/18/22 Primary care physician: [facility] Admitting clinician: Ira Funk Attending physician on admission: Luis Enrique Vidales Attending physician on discharge: Luis Enrique Vidales Discharging clinician: Rajwinder Calabrese DS: Diagnosis Discharge Diagnosis (1) MDD (major depressive disorder), recurrent, severe, with psychosis: Status: Acute (2) Opioid use disorder: Status: Acute DS: Medications Discharge Medications Home Medications: Home Medications Medication Instructions Recorded Confirmed hydroxyzine HCl 50 mg tablet 50 mg PO QID PRN anxiety 03/03/22 07/10/22 omeprazole 20 mg capsule,delayed 20 mg PO DAILY 07/10/22 07/10/22 release amitriptyline 100 mg tablet 100 mg PO BEDTIME 07/11/22 07/11/22 atenolol 25 mg tablet 25 mg PO DAILY 07/11/22 07/11/22 bethanechol chloride 50 mg tablet 50 mg PO BID 07/11/22 07/11/22 cholecalciferol (vitamin D3) 25 25 mcg PO DAILY 07/11/22 07/11/22 mcg (1,000 unit) tablet (Vitamin D3) clonidine HCl 0.2 mg tablet 0.2 mg PO BID 07/11/22 07/11/22 diphenhydramine HCl 50 mg capsule 50 mg PO BEDTIME 07/11/22 07/11/22 (Banophen) melatonin 10 mg tablet 10 mg PO BEDTIME 07/11/22 07/11/22 metformin 500 mg tablet,extended 500 mg PO DAILY 07/11/22 07/11/22 release 24 hr pantoprazole 20 mg tablet,delayed 40 mg PO DAILY 07/11/22 07/11/22 release tamsulosin 0.4 mg capsule 0.4 mg PO BEDTIME 07/11/22 07/11/22 terazosin 5 mg capsule 5 mg PO BEDTIME 07/11/22 07/11/22 zolpidem 12.5 mg tablet,extended 12.5 mg PO BEDTIME PRN Insomnia 07/11/22 07/11/22 release,multiphase Previous Rx's Medication Instructions Recorded gabapentin 100 mg capsule 100 mg PO TID@0900,1300,1900 #90 07/17/22 caps nicotine (polacrilex) 2 mg gum 4 mg buccal Q2H PRN Nicotine 07/17/22 Cravings #60 ea perphenazine 8 mg tablet 8 mg PO BID #60 tabs 07/17/22 buprenorphine 2 mg-naloxone 0.5 mg 1 film buccal DAILY #6 ea 07/18/22 sublingual film (Suboxone) Mental Status Exam Mental Status Exam Patient Appearance: Appropriate Patient Orientation: Person, Place, Time and Situation Level of Consciousness: Alert Patient Behavior: Appropriate, Talkative, Cooperative and Good Eye Contact Mood Description: Anxious Affect Description: Anxious Patient Cognition Impaired: No Ability to Follow Directions: Good Speech Pattern: Spontaneous Speech Memory Description: Intact Hallucinations: Auditory Perceptual Disturbances: Derealization Thought Process: Intact Thought Content: positive for Intact and positive for Suicidal Ideation (denies today) Depressive Symptoms: Increased Anxiety and Thoughts of /Suicide (denies) Judgement: Fair Data Data Completed and Pending Completed studies during hospitalization [Text1]: 07/18/22 08:14 Creatinine 0.94 Estim Creat Clear Calc 85.4 Estimated GFR > 60 DS: Summary Hospital Course Hospital Course: Admission to adult psychiatry for exacerbation of schizoaffective disorder with depression with reports of CAH to suicide, fentanyl dependence with overdose prior to admission, requiring Narcan. Perphenazine was titrated, Amtriptyline was decreased, Gabapentin was initiated and trialed. Pt agreed to continue with Suboxone and out patient psychiatry with Dr. Fuller and therapy upon discharge. He declined residential applications at this time. Time spent discussing smoking cessation with patient: 3 to 10 minutes Status at Discharge Functional status at discharge: independent ambulation Overall status at discharge: patient is progressing back to baseline Time Spent with Patient Time attestation: Total time managing care of this patient today ____ minutes. Time spent: Greater than 30 minutes Discharge Plan Discharge Anticipated Discharge Date/Time: 07/18/22 12:40 Patient Disposition: Home, Self-Care Discharge Diagnosis: Schizoaffective Disorder, Depressed Opiate Use Disorder-Suboxone therapy BPH GERD DM HTN Referrals: [facility] [Other] - 07/23/22 8:00 am (THERAPY APPOINTMENT VIA [facility]) DR. SHELIA FULLER, [facility] [Other] - 07/28/22 11:40 am (ON PERSON APPOINTMENT) [facility] [Other] - 07/22/22 2:00 pm (IN TAKE APPOINTMENT WITH NURSE) [facility] [Other] - 07/24/22 2:45 pm (INITIAL PROVIDER MEETING WHEN MEDICATION WILL BE PRESCRIBED) Patrick Ly MD [Physician] - 08/05/22 9:30 am (in office) Discharge Medications: New nicotine (polacrilex) 2 mg Gum 4 mg buccal Q2H PRN (Reason: Nicotine Cravings) Qty: 60 0RF gabapentin 100 mg Capsule 100 mg PO TID@0900,1300,1900 Qty: 90 0RF perphenazine 8 mg Tablet 8 mg PO BID Qty: 60 0RF buprenorphine-naloxone [Suboxone] 2-0.5 mg film 1 film buccal DAILY Qty: 6 0RF Rx Instructions: place 1 strip/tab under (each) side of tongue Continued omeprazole 20 mg capsule,delayed release(DR/EC) 20 mg PO DAILY metformin 500 mg Tablet Extended Release 24 Hr 500 mg PO DAILY diphenhydramine HCl [Banophen] 50 mg Capsule 50 mg PO BEDTIME atenolol 25 mg Tablet 25 mg PO DAILY zolpidem 12.5 mg Tablet,Ext Release Multiphase 12.5 mg PO BEDTIME PRN (Reason: Insomnia) amitriptyline 100 mg Tablet 100 mg PO BEDTIME cholecalciferol (vitamin D3) [Vitamin D3] 25 mcg (1,000 unit) Tablet 25 mcg PO DAILY clonidine HCl 0.2 mg Tablet 0.2 mg PO BID tamsulosin 0.4 mg Capsule 0.4 mg PO BEDTIME melatonin 10 mg Tablet 10 mg PO BEDTIME terazosin 5 mg Capsule 5 mg PO BEDTIME pantoprazole 20 mg Tablet,Delayed Release (Dr/Ec) 40 mg PO DAILY bethanechol chloride 50 mg Tablet 50 mg PO BID hydroxyzine HCl 50 mg tablet 50 mg PO QID PRN (Reason: anxiety) Discontinued benztropine 0.5 mg tablet 0.5 mg PO BID perphenazine 2 mg Tablet 5 mg PO BID mirtazapine 30 mg Tablet 30 mg PO BEDTIME amitriptyline 25 mg Tablet 25 mg PO BEDTIME Discharge Orders: Discharge Order (Routine); Ordered 07/18/22 Ordered By: Rajwinder Calabrese Diet: Advance to usual diet Activity on Discharge: As tolerated Stand Alone Forms: Patient Portal Discharge page, Community Support Care Plan Goals: Mood and Behavioral Stabilization Work on Sobriety Health Concerns: Mood and Behavioral Stabilization Sobriety Plan of Treatment: Attend scheduled follow up appointments Take medications as directed Call/Return as needed Assessment: Pt interviewed prior to discharge and found to be fully oriented and without SI/HI. Pt has insight and demonstrates good judgment in terms of wanting to pursue treatment Pt is not in imminent risk of harm to self or others and has a safety plan that includes presenting to the closest ER or calling 911 if feeling unsafe. Pt has been observed closely by nursing and unit staff throughout admission Pt has not engaged in any behaviors that suggest dangerousness to self or others and has demonstrated appropriate behavioral and impulse control while on the unit. Discharge Date/Time: 07/18/22 09:00
== END 2022-07-18 09:00 | disposition home or self-care (01) | DRG 751 ==
LOC: HO.ED 14:08 → HO.PM5 19:48
PROVIDERS: Social Worker; Admitting Provider Psychiatry & Neurology Psychiatry; Emergency Provider Emergency Medicine; Visit Provider Clinical Nurse Specialist Psychiatric/Mental Health, Adult
DX: F33.3 Major depressive disorder, recurrent, severe with psychotic symptoms (principal); E11.9 Type 2 diabetes mellitus without complications; N40.1 Benign prostatic hyperplasia with lower urinary tract symptoms; R33.8 Other retention of urine; K21.9 Gastro-esophageal reflux disease without esophagitis; I10 Essential (primary) hypertension; F17.210 Nicotine dependence, cigarettes, uncomplicated; Z20.822 Contact with and (suspected) exposure to COVID-19; Z71.6 Tobacco abuse counseling; T40.412A Poisoning by fentanyl or fentanyl analogs, intentional self-harm, initial encounter; F11.23 Opioid dependence with withdrawal; Z59.01 Sheltered homelessness; Z79.84 Long term (current) use of oral hypoglycemic drugs; Z91.041 Radiographic dye allergy status; Z88.5 Allergy status to narcotic agent; Z88.6 Allergy status to analgesic agent; Z79.899 Other long term (current) drug therapy
CPT/HCPCS: 36415; 80048; 80053; 80061; 80307; 81003; 82077; 82565; 85025; 87635; 93005; 99285; J2405; S9485

== ENCOUNTER → 2022-09-04 13:37 | Outpatient (BNVA) | payer MEDICAID, SELFPAY | PROVIDERS: PCP Internal Medicine; Visit Provider Physician Assistant | DX: M17.12 Unilateral primary osteoarthritis, left knee (principal) | CPT/HCPCS: 20610; 99212; J1020 ==

== ENCOUNTER 2022-09-23 11:18 | Inpatient (IN) | payer OTHER, SELFPAY ==
[2022-09-23] VITALS (7 sets, daily range): BP systolic 130–156; BP diastolic 79–100; PULSE 86–106; RESP 14–22; TEMP 35.4–36.7; O2SAT 96–97; BMI 26.2; BMI 25.6
--- NOTE | 2022-09-23 11:24 | ECG_ITS ---
Test Reason : cp/anxiety Blood Pressure : / mmHG Vent. Rate : 093 BPM Atrial Rate : 093 BPM P-R Int : 136 ms QRS Dur : 076 ms QT Int : 356 ms P-R-T Axes : 017 000 039 degrees QTc Int : 442 ms Normal sinus rhythm Minimal voltage criteria for LVH, may be normal variant ( R in aVL ) Borderline ECG When compared with ECG of 10-JUL-2022 16:29, Vent. rate has increased BY 38 BPM Referred By: Generic ED Physician Electronically Signed By:VIKI PINEDO
--- NOTE | 2022-09-23 11:26 | ED_ITS ---
HPI - General Adult General Chief complaint: Chest Pain Stated complaint: CP,ANXIETY PER EMS Time Seen by Provider: 09/23/22 11:36 Source: patient and RN notes reviewed Mode of arrival: ambulatory Limitations: no limitations History of Present Illness HPI narrative: This is a 52-year-old, with a past medical history of GERD, BPH, bipolar, chronic abdominal pain, alcohol use disorder, schizoaffective disorder, chronic chest pain, anemia, pancreatitis, presenting to the emergency department for evaluation of chest pain and suicidal ideations. Patient reports that the chest pain is left-sided and radiates down his arm and into his left back. The chest pain has been constant since yesterday, he initially felt this chest pain when he was at rest. Patient reports that he has pain all over his body and reports that he wants to kill himself right now and also is having homicidal ideations. He states that he does have a plan including cutting up his entire body. Patient endorses visual hallucinations including ?monsters and snakes? and is hearing voices telling him to kill himself. Patient reports that he vomited many times yesterday reporting that the vomit was yellow. Denies any fevers or chills. No other complaints or concerns at this time. MD complaint: Chest pain, suicidal ideation Treatments prior to arrival: none Related Data Home Medications Medication Instructions Recorded Confirmed hydroxyzine HCl 50 mg tablet 50 mg PO QID PRN anxiety 03/03/22 07/10/22 omeprazole 20 mg capsule,delayed 20 mg PO DAILY 07/10/22 07/10/22 release amitriptyline 100 mg tablet 100 mg PO BEDTIME 07/11/22 07/11/22 atenolol 25 mg tablet 25 mg PO DAILY 07/11/22 07/11/22 bethanechol chloride 50 mg tablet 50 mg PO BID 07/11/22 07/11/22 cholecalciferol (vitamin D3) 25 25 mcg PO DAILY 07/11/22 07/11/22 mcg (1,000 unit) tablet (Vitamin D3) clonidine HCl 0.2 mg tablet 0.2 mg PO BID 07/11/22 07/11/22 diphenhydramine HCl 50 mg capsule 50 mg PO BEDTIME 07/11/22 07/11/22 (Banophen) melatonin 10 mg tablet 10 mg PO BEDTIME 07/11/22 07/11/22 metformin 500 mg tablet,extended 500 mg PO DAILY 07/11/22 07/11/22 release 24 hr pantoprazole 20 mg tablet,delayed 40 mg PO DAILY 07/11/22 07/11/22 release tamsulosin 0.4 mg capsule 0.4 mg PO BEDTIME 07/11/22 07/11/22 terazosin 5 mg capsule 5 mg PO BEDTIME 07/11/22 07/11/22 zolpidem 12.5 mg tablet,extended 12.5 mg PO BEDTIME PRN Insomnia 07/11/22 07/11/22 release,multiphase Previous Rx's Medication Instructions Recorded gabapentin 100 mg capsule 100 mg PO TID@0900,1300,1900 #90 07/17/22 caps nicotine (polacrilex) 2 mg gum 4 mg buccal Q2H PRN Nicotine 07/17/22 Cravings #60 ea perphenazine 8 mg tablet 8 mg PO BID #60 tabs 07/17/22 buprenorphine 2 mg-naloxone 0.5 mg 1 film buccal DAILY #6 ea 07/18/22 sublingual film (Suboxone) bethanechol chloride 50 mg tablet 50 mg PO BID 90 days #180 tabs 08/22/22 Allergies Allergy/AdvReac Type Severity Reaction Status Date / Time trazodone [TRAZODONE] Allergy Severe FACIAL Verified 09/23/22 11:29 SWELLING, swelling cat dander [CATS] Allergy Intermediate FACIAL Verified 09/23/22 11:29 ITCHING doxepin [DOXEPIN] Allergy Intermediate WEIGHT Verified 09/23/22 11:29 GAIN/LEG SWELLING Iodinated Contrast Media Allergy Intermediate ITCHING Verified 09/23/22 11:29 [IV DYE, IODINE CONTAINING CONTRAST ] nitroglycerin [NITROGLYCERIN] Allergy Unknown UNKNOWN Verified 09/23/22 11:29 tramadol [TRAMADOL] Allergy Unknown UNKNOWN, Verified 09/23/22 11:29 dry mouth ibuprofen [From MOTRIN] AdvReac Intermediate GI UPSET Verified 09/23/22 11:29 quetiapine [From SEROQUEL] AdvReac Intermediate FACIAL Verified 09/23/22 11:29 SWELLING aspirin [ASPIRIN] AdvReac Mild Stomach Verified 09/23/22 11:29 Upset Ibuprofen Allergy Unknown stomach Uncoded 09/23/22 11:29 ache IV contrast Allergy Unknown Unknown Uncoded 09/23/22 11:29 Motrin Allergy Unknown stomach Uncoded 09/23/22 11:29 pain Review of Systems Review of Systems: Constitutional: No Weight loss, No Fever, No Chills ENT/Mouth: No Ear Pain, No Nasal Congestion, No Sinus Pain, No Hoarseness, No sore throat, No Rhinorrhea, No Swallowing Difficulty Cardiovascular: + Chest Pain, No SOB Respiratory: No Cough, No Sputum, No Wheezing Gastrointestinal: + Nausea, + Vomiting, No Diarrhea, No Constipation, No Abdominal pain Genitourinary: No Dysuria, No Urinary Frequency, No Hematuria, No Urinary Incontinence/retention, No Urgency, No Flank Pain Musculoskeletal: No joint pain, No Myalgias, No Joint Swelling Skin: No Skin Lesions, No rash Neuro: No Weakness, No Numbness, No Paresthesias Yes all other systems are reviewed and are negative Constitutional: Constitutional: Reports as per [facility] Past Medical History Attestation statement: The following information was validated with the patient. Medical History Alcohol dependence Anxiety Chest pain Derangement of symphysis pubis Dysphagia GERD (gastroesophageal reflux disease) Low TSH level Major depressive disorder, recurrent severe without psychotic features Opioid abuse Weight loss Surgical History H/O umbilical hernia repair History of colonoscopy History of cystoscopy Family History Family History Father HTN (hypertension) Diabetes Mother HTN (hypertension) Stroke Alzheimer disease Heart disease Social History Social History Household Members: None Housing: Apartment Do you presently have visiting nurse or other home services: No Alcohol intake: never Patient Tobacco Use Status: Tobacco use Unknown Tobacco use type: Cigarette Cigarette Packs Per Day: 1 Cigarettes Per Day: 20.0 Years Smoked: 9 e-Cigarette/Vaping Use: Never Used Second Hand Smoke Exposure: No Substance Use Type: Heroin and Opiates Advance Directives: Yes Advance Directives on File: Yes Advance Directives Date on File: 02/14/20 service: No Current occupational status: unemployed and disabled Sexual orientation: Straight/Heterosexual Physical Exam ED Vital Signs: Vital Signs - 24 hr 09/23/22 11:25 09/23/22 11:54 09/23/22 15:38 Temperature 97.7 F 98.0 F Pulse Rate 99 87 92 Respiratory Rate 18 17 20 Blood Pressure 137/98 H 142/94 H 136/90 H Pulse Oximetry 97 97 97 Oxygen Delivery Method Room Air Room Air Room Air BMI result Body Mass Index 26.2 Const General: cooperative, comfortable and no acute distress Orientation/consciousness: patient oriented x3 Limitations: no limitations HENMT Head: Yes normal to inspection, Yes normocephalic and Yes atraumatic Ears: hearing grossly normal bilaterally General nose exam: Normal external nose present Face and sinus: Yes normal facial exam Mouth: Normal oral and palatal mucosa present, oropharynx normal and moist mucous membranes Throat: Yes posterior oropharynx normal Eyes General: appearance normal, both eyes and all related structures Eyelids: Yes eyelids normal Conjunctivae: conjunctivae normal Sclerae: sclerae normal Pupils: Equal, round and reactive pupils present EOM: EOMs intact bilaterally Neck Neck: Yes normal visual inspection, Yes full ROM and Yes no lymphadenopathy Lymphatic: no lymphadenopathy noted Chest Chest palpation & inspection: normal inspection of the chest Resp Effort & Inspection: normal respiratory effort and able to speak in complete sentences Auscultation: clear to auscultation bilaterally, no crackles, no rales, no rhonchi and no wheezes Cardio Rate: regular rate Rhythm: regular rhythm Heart sounds: S1 normal heart sound present and S2 normal heart sound present GI Inspection: Yes normal to inspection Palpation (GI): Soft to palpation, nontender and no guarding Skin General skin exam: no rashes or lesions noted Trauma: no lacerations or abrasions Wounds: no wounds Neuro General: patient oriented x3 and moves all extremities Cranial nerves: Yes Equal, round and reactive pupils present Extrem General: Yes normal to inspection Right upper extremity: normal to inspection Left upper extremity: normal to inspection Right lower extremity: normal to inspection Left lower extremity: normal to inspection Psych Appearance: disheveled Speech and movement: Pressured speech present Affect: Anxious affect present Attitude: Guarded attititude/behavior present Thought process: Circumstantial thought process present Thought content: Suicidality present, Homicidality present, Paranoid delusions present and Depressive thoughts present Insight: Poor insight present (Psych) Judgement: Poor judgement present (Psych) Course Course Course Narrative: RME- 52 year old male presents for evaluation of chest pain. Symptoms started last night and radiate to his left arm. Hx of GERD and Anxiety. Also reports vomiting. Pland for EKG, labs Reevaluation(s) Reevaluation #1: Labs unremarkable, troponin negative. Given symptoms have been occurring for greater than 24 hours does not qualify for repeat. EKG with no ischemia noted. Similar appearing EKG from previous on July 10, 2022. Crisis and care team consult still pending. Time: 13:27 Reevaluation #2: Crisis evaluated patient and will be admitting patient psychiatrically to this hospital. Time: 16:00 Medications Administered Discontinued Medications Generic Name Dose Route Start Last Admin Trade Name Freq PRN Reason Stop Dose Admin Ketorolac Tromethamine 30 mg 09/23/22 12:20 09/23/22 12:26 Ketorolac Tromethamine 30 Mg/Ml Vial IM 09/23/22 12:21 30 mg ONCE ONE Administration Ondansetron HCl 4 mg 09/23/22 12:13 09/23/22 12:17 Ondansetron Odt 4 Mg Tab.Rapdis TRANSLINGU 09/23/22 12:14 4 mg ONCE ONE Administration Medical Decision Making Medical Decision Making MDM Narrative: 52-year-old male, with a past medical history of GERD, BPH, bipolar, chronic abdominal pain, alcohol use disorder, schizoaffective disorder, chronic chest pain, anemia, and pancreatitis, presenting to the emergency department for evaluation of chest pain which started yesterday as well as suicidal ideations. On arrival, patient's blood pressure 137/98, all other vital signs within normal limits. EKG obtained with no ST elevation or depression. Patient grabbed my hand and looked at me intently stating that he is not right and is fe eling like he is going to kill himself and also having homicidal thoughts including harming the cytotechnologist supervisor and staff. Patient with one-to-one sitter and currently in [facility] [facility] fast track, I deemed that this was inappropriate as this is very close to the entrance of the hospital. Patient attempted to flee, but was able to get back into bed. Patient medicated with Zofran 4 mg p.o., and Toradol 30 mg IM. Plan: Labs, EKG, crisis and care team consult Differential Diagnosis Differential Diagnoses: The differential diagnosis associated with the presentation includes ACS, gastritis, gastroenteritis, anxiety, suicidal ideations, homicidal ideations, paranoia, schizoaffective disorder Admission/Observation Consideration of admission/observation: Escalation of care including admission/observation considered Lab Data MDM Lab Attestation statement: I reviewed the patient's lab results. 09/23/22 11:46 09/23/22 11:46 Labs: Lab Results 09/23/22 09/23/22 09/23/22 Range/Units 11:46 11:46 11:46 WBC 8.2 (4.8-10.8) X10*3/uL RBC 4.83 D (4.60-5.80) X10*6/uL Hgb 13.5 L D (14.0-18.0) g/dl Hct 41.6 L (42.0-52.0) % MCV 86.1 (80.0-98.0) fL MCH 28.0 (27.0-33.0) pg MCHC 32.5 (31.0-36.0) g/dl RDW 14.2 (11.0-16.0) % Plt Count 259 (160-400) X10*3/uL MPV 9.6 (9.4-12.4) fL Immature Gran % (Auto) 0.4 (0.0-0.4) % Neut % (Auto) 74.2 H (45-73) % Lymph % (Auto) 20.6 (20-40) % Amite % (Auto) 4.0 (2-11) % Eos % (Auto) 0.6 (0-4) % Baso % (Auto) 0.2 (0-2) % Lymph # (Auto) 1.7 (1.2-4.9) X10*3/uL Amite # (Auto) 0.3 (0.1-1.2) X10*3/uL Eos # (Auto) 0.1 (0.0-0.4) X10*3/uL Baso # (Auto) 0.0 (0.0-0.2) X10*3/uL Abs Immat Gran (auto) 0.03 (0.00-0.03) X10*3/uL Absolute Neuts (auto) 6.1 (2.0-8.3) x10*3/uL Absolute Nucleated RBC 0.000 (0.0-0.012) X10*3/uL Nucleated RBC % (auto) 0.0 (0.0-0.2) /100WBC PT 11.6 (10.0-13.1) SEC INR 1.0 (0.9-1.1) APTT 28.9 (26.0-36.4) SEC Sodium 138 (135-145) mmol/L Potassium 3.9 (3.3-5.1) mmol/L Chloride 101 (96-108) mmol/L Carbon Dioxide 22 (22-29) mmol/L Anion Gap 19 (12-20) BUN 6 L (9-16) mg/dL Creatinine 0.76 (0.5-1.4) mg/dL Estim Creat Clear Calc 96.6 Estimated GFR > 60 POC Glucose (60-115) mg/dL Random Glucose 117 H (60-115) mg/dL Calcium 9.8 (8.4-10.2) mg/dL Total Bilirubin 0.3 (0.0-1.0) mg/dL AST 16 (5-37) U/L ALT 14 (0-40) U/L Alkaline Phosphatase 81 (39-117) U/L Troponin I High Sens (<3.5-35.0) ng/L Total Protein 8.4 H (6.5-8.0) g/dL Albumin 4.4 (3.5-5.0) g/dL Lipase 10 (8-78) U/L 09/23/22 09/23/22 Range/Units 11:46 15:51 WBC (4.8-10.8) X10*3/uL RBC (4.60-5.80) X10*6/uL Hgb (14.0-18.0) g/dl Hct (42.0-52.0) % MCV (80.0-98.0) fL MCH (27.0-33.0) pg MCHC (31.0-36.0) g/dl RDW (11.0-16.0) % Plt Count (160-400) X10*3/uL MPV (9.4-12.4) fL Immature Gran % (Auto) (0.0-0.4) % Neut % (Auto) (45-73) % Lymph % (Auto) (20-40) % Amite % (Auto) (2-11) % Eos % (Auto) (0-4) % Baso % (Auto) (0-2) % Lymph # (Auto) (1.2-4.9) X10*3/uL Amite # (Auto) (0.1-1.2) X10*3/uL Eos # (Auto) (0.0-0.4) X10*3/uL Baso # (Auto) (0.0-0.2) X10*3/uL Abs Immat Gran (auto) (0.00-0.03) X10*3/uL Absolute Neuts (auto) (2.0-8.3) x10*3/uL Absolute Nucleated RBC (0.0-0.012) X10*3/uL Nucleated RBC % (auto) (0.0-0.2) /100WBC PT (10.0-13.1) SEC INR (0.9-1.1) APTT (26.0-36.4) SEC Sodium (135-145) mmol/L Potassium (3.3-5.1) mmol/L Chloride (96-108) mmol/L Carbon Dioxide (22-29) mmol/L Anion Gap (12-20) BUN (9-16) mg/dL Creatinine (0.5-1.4) mg/dL Estim Creat Clear Calc Estimated GFR POC Glucose 107 (60-115) mg/dL Random Glucose (60-115) mg/dL Calcium (8.4-10.2) mg/dL Total Bilirubin (0.0-1.0) mg/dL AST (5-37) U/L ALT (0-40) U/L Alkaline Phosphatase (39-117) U/L Troponin I High Sens < 2.7 (<3.5-35.0) ng/L Total Protein (6.5-8.0) g/dL Albumin (3.5-5.0) g/dL Lipase (8-78) U/L Independent Interpretation I performed an independent interpretation of an: EKG Interpretation: EKG normal sinus rhythm at a ventricular rate of 93 beats per minute, OK interval 136, QTC 442. No ST elevation or depression External Record Review External record reviewed: Inpatient record, Office record, Outpatient record, Prior outpatient labs, Prior outpatient radiology, Primary care record and Outside ED record Discharge Plan Discharge Clinical Impression: Suicidal ideation Patient Disposition: Admitted As Inpatient Prescriptions: No Action bethanechol chloride 50 mg tablet 50 mg PO BID 90 Days Qty: 180 1RF omeprazole 20 mg capsule,delayed release(DR/EC) 20 mg PO DAILY metformin 500 mg Tablet Extended Release 24 Hr 500 mg PO DAILY diphenhydramine HCl [Banophen] 50 mg Capsule 50 mg PO BEDTIME atenolol 25 mg Tablet 25 mg PO DAILY zolpidem 12.5 mg Tablet,Ext Release Multiphase 12.5 mg PO BEDTIME PRN (Reason: Insomnia) amitriptyline 100 mg Tablet 100 mg PO BEDTIME cholecalciferol (vitamin D3) [Vitamin D3] 25 mcg (1,000 unit) Tablet 25 mcg PO DAILY clonidine HCl 0.2 mg Tablet 0.2 mg PO BID tamsulosin 0.4 mg Capsule 0.4 mg PO BEDTIME melatonin 10 mg Tablet 10 mg PO BEDTIME terazosin 5 mg Capsule 5 mg PO BEDTIME pantoprazole 20 mg Tablet,Delayed Release (Dr/Ec) 40 mg PO DAILY bethanechol chloride 50 mg Tablet 50 mg PO BID nicotine (polacrilex) 2 mg Gum 4 mg buccal Q2H PRN (Reason: Nicotine Cravings) Qty: 60 0RF gabapentin 100 mg Capsule 100 mg PO TID@0900,1300,1900 Qty: 90 0RF perphenazine 8 mg Tablet 8 mg PO BID Qty: 60 0RF buprenorphine-naloxone [Suboxone] 2-0.5 mg film 1 film buccal DAILY Qty: 6 0RF Rx Instructions: place 1 strip/tab under (each) side of tongue hydroxyzine HCl 50 mg tablet 50 mg PO QID PRN (Reason: anxiety)
[2022-09-23 11:55] LABS: MANUAL DIFF FLAG NO
[2022-09-23 12:00] LABS: Basophils Percent Auto 0.2 % (0-2); Eosinophils Absolute Auto 0.1 X10*3/uL (0.0-0.4); Eosinophils Percent Auto 0.6 % (0-4); Hematocrit 41.6 % (42.0-52.0); Hemoglobin 13.5 g/dl (14.0-18.0); Imm Gran Abs Auto 0.03 X10*3/uL (0.00-0.03); Imm Gran Pct Auto 0.4 % (0.0-0.4); Lymphocytes Absolute Auto 1.7 X10*3/uL (1.2-4.9); Lymphocytes Percent Auto 20.6 % (20-40); Mean Corpuscular HGB Conc 32.5 g/dl (31.0-36.0); Mean Corpuscular Volume 86.1 fL (80.0-98.0); Mean Platelet Volume 9.6 fL (9.4-12.4); Monocytes Absolute Auto 0.3 X10*3/uL (0.1-1.2); Neutrophils Absolute Auto 6.1 x10*3/uL (2.0-8.3); Neutrophils Percent Auto 74.2 % (45-73); Platelet Count 259 X10*3/uL (160-400); Red Blood Count 4.83 X10*6/uL (4.60-5.80); Red Cell Distribution Width 14.2 % (11.0-16.0); White Blood Count 8.2 X10*3/uL (4.8-10.8)
[2022-09-23 12:04] LABS: Prothrombin Time 11.6 SEC (10.0-13.1)
[2022-09-23 12:07] LABS: Partial Thromboplastin Time 28.9 SEC (26.0-36.4)
[2022-09-23] MEDS: Ondansetron ODT 4 MG TAB.RAPDIS TRANSLINGU (12:17)
--- NOTE | 2022-09-23 12:21 | PC.NURSE ---
pt attempting to put spo2 sensor around neck in ligature inflicting attempt, pct at bedside to deescalate pt and remove object of concern for harm. 1:[address] for safety.
[2022-09-23 12:24] LABS: Alanine Aminotransferase 14 U/L (0-40); Albumin Level 4.4 g/dL (3.5-5.0); Alkaline Phosphatase 81 U/L (39-117); Anion Gap 19 (12-20); Aspartate Amino Transferase 16 U/L (5-37); Bilirubin Total 0.3 mg/dL (0.0-1.0); Blood Urea Nitrogen 6 mg/dL (9-16); Calcium 9.8 mg/dL (8.4-10.2); Carbon Dioxide 22 mmol/L (22-29); Chloride 101 mmol/L (96-108); Creatinine Clr Calc Pharmacy 96.6; Estimated Glomerular Filt Rate > 60; Glucose Random 117 mg/dL (60-115); Lipase 10 U/L (8-78); Potassium 3.9 mmol/L (3.3-5.1); Sodium 138 mmol/L (135-145); Total Protein 8.4 g/dL (6.5-8.0)
[2022-09-23] MEDS: Ketorolac Tromethamine 30 MG/ML VIAL IM (12:26)
--- NOTE | 2022-09-23 12:28 | PC.NURSE ---
escorted over to pod using steady gait.
[2022-09-23 12:48] LABS: Troponin-I High Sensitivity < 2.7 ng/L (<3.5-35.0)
[2022-09-23 15:56] LABS: Glucose, Whole Blood 107 mg/dL (60-115)
[2022-09-23 16:12] LABS: COVID-19 Test Negative (Negative); IDNOW Serial# BCCEAD1C
--- NOTE | 2022-09-23 16:32 | PC.NURSE ---
Pt states that he cannot provide a urine sample. States I have prostate problems . Provider (NASRIN Soares) notified. Full bladder. Pt requesting catheterization. Provider aware of request.
[2022-09-23 16:52] LABS: Acetaminophen LAB < 17 mcg/mL (<30); Ethanol < 10 mg/dL; Salicylate < 5.0 mg/dL (15-30)
[2022-09-23 17:53] LABS: Appearance Urine Clear; Color Urine Yellow; Glucose Urine UA Negative (Negative); Leukocyte Esterase Urine Negative (Negative); Nitrite Urine Negative (Negative); Specific Gravity - Urine <= 1.005 (1.005-1.025); Urine Blood Negative (Negative); Urine Ketones Negative (Negative); Urine Protein Negative (Neg-Trace)
[2022-09-23 18:09] LABS: Amphetamine Screen Urine Not Detected (Not Detect); Barbiturates, Urine Not Detected (Not Detect); Benzodiazepines Screen Urine Not Detected (Not Detect); Cannabinoid Screen Urine Not Detected (Not Detect); Cocaine Screen Urine Not Detected (Not Detect); Fentanyl, urine Not Detected (Not Detect); Opiate Screen Urine Not Detected (Not Detect); Phencyclidine Screen Urine Not Detected (Not Detect)
[2022-09-23] MEDS: cloNIDine HCL 0.2 MG TABLET PO (20:26)
--- NOTE | 2022-09-23 22:43 | PC.NURSE ---
bladder scan performed->58 ml
[2022-09-23] MEDS: Mirtazapine 30 MG TABLET PO (22:57)
[2022-09-23] MEDS: Amitriptyline HCl 25 MG TABLET 125 MG PO (22:57)
[2022-09-23] MEDS: Zolpidem Tartrate 5 MG TABLET PO (22:57)
[2022-09-23] MEDS: fluPHENAZine HCl 5 MG TABLET PO (22:58)
[2022-09-23] MEDS: Doxazosin Mesylate 2 MG TABLET 4 MG PO (22:58)
[2022-09-23] MEDS: Bethanechol Chloride 25 MG TABLET 50 MG PO (22:58)
[2022-09-23 23:19] LABS: Glucose, Whole Blood 108 mg/dL (60-115)
--- NOTE | 2022-09-24 02:26 | PC.ADMIT ---
this is one of many [facility] admissions for this 52 year old male. legal:cv. dx: MDD with psychosis. patient was a referral to [facility] after assessment by the CARE team. nurse to nurse, collateral information obtained prior to admission. patient was cooperative to skin check and admission assessment. endorses + A-V hallucinations ''I hear bad things and I see snakes at home'' ''I feel people don't believe me when I tell them'' initially patient had presented to the ER with c/o chest pain. medical work up negative.
--- NOTE | 2022-09-24 02:52 | PC.ADMIT ---
continued-patient was also straight catheterized after c/o difficulties with urination. when in the emergency room reported ''I tried to tie something around my neck'' records indicate that he attempted to use the Sa02 cord from the [facility] tower as staff was near by. when questioned about actions ''they didn't believe me'' ''the voices told me to do it'' has a medical hx of NIDDM, BPH, gerd, opioid use d/o (see record for full hx) KEITA was negative. currently reports feeling ''safe'' ''I need to be here'' denies VH but continues to report +AH. denies HI. no current cutting noted but did show t/w an old scar on his hand ''see, this is what I do sometimes'' reports + depression, + anxiety and poor sleep. states he is ''too thin'' but BMI indicated he is overweight for his height. patient complaining that he does not like his psychiatrist and that ''the nurse that comes to my home just comes in, gives me my meds and then just leaves'' ''she doesn't do anything for me'' responded well to active listening. oriented to unit, safety tool and treatment plan initiated. medication reconciliation completed when in the emergency room.
--- NOTE | 2022-09-24 05:40 | PC.NURSE ---
OOB at 0500 reporting ''I can't pee'' bladder scan for >314. no other complaints noted, no reports of discomfort. tolerated procedure well. returned to bed after scan. will report off results.
[2022-09-24 08:20] VITALS: BP 132/74; PULSE 107; RESP 18; TEMP 35.9; O2SAT 97
[2022-09-24] MEDS: cloNIDine HCL 0.2 MG TABLET PO ×2 (08:31→19:59)
[2022-09-24] MEDS: atenoloL 25 MG TABLET PO (08:31)
[2022-09-24] MEDS: Cholecalciferol (Vitamin D3) 25 MCG TABLET PO (08:31)
[2022-09-24] MEDS: Docusate Sodium 100 MG CAPSULE PO ×2 (08:32→19:59)
[2022-09-24] MEDS: Calcium + Vitamin D 250 MG TABLET PO (08:32)
[2022-09-24] MEDS: metFORMIN HCl ER 500 MG TAB.ER.24H PO (08:32)
[2022-09-24] MEDS: Milk of Magnesia 30 ML ORAL.SUSP PO (08:32)
[2022-09-24] MEDS: Buprenorphine/Naloxone 2/0.5mg FILM 1 FILM SUBLINGUAL (08:33)
[2022-09-24] MEDS: Bethanechol Chloride 25 MG TABLET 50 MG PO ×2 (09:32→19:58)
[2022-09-24] MEDS: hydrOXYzine HCL 25 MG TABLET PO (10:18)
[2022-09-24] MEDS: OLANZapine 5 MG TABLET PO (13:03)
[2022-09-24 13:20] VITALS: BP 109/62; PULSE 66; RESP 18
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
--- NOTE | 2022-09-24 16:50 | PC.NURSE ---
Patient bladder scan completed by tank charger [id number] Eleuterio Aparicio. volume of 53 currently in bladder. No catheterization indicated at this time.
[2022-09-24] MEDS: bisacodyL 5 MG TABLET.DR 10 MG PO (17:42)
[2022-09-24 17:50] LABS: Glucose, Whole Blood 105 mg/dL (60-115)
[2022-09-24] MEDS: Amitriptyline HCl 25 MG TABLET 125 MG PO (19:55)
[2022-09-24] MEDS: Doxazosin Mesylate 2 MG TABLET 4 MG PO (19:57)
[2022-09-24] MEDS: Melatonin 3 MG TABLET 9 MG PO (19:58)
[2022-09-24] MEDS: OLANZapine 10 MG TABLET PO (19:59)
[2022-09-24] MEDS: Mirtazapine 30 MG TABLET PO (19:59)
[2022-09-24 20:00] VITALS: BP 141/78; PULSE 72; RESP 18; TEMP 36.6; O2SAT 98
[2022-09-24] MEDS: Zolpidem Tartrate 5 MG TABLET PO (20:01)
[2022-09-25] MEDS: OLANZapine 5 MG TABLET PO ×3 (01:48→14:01)
[2022-09-25 07:00] VITALS: BMI 25.7
[2022-09-25 07:59] LABS: Glucose, Whole Blood 154 mg/dL (60-115)
[2022-09-25] MEDS: cloNIDine HCL 0.2 MG TABLET PO ×2 (08:49→20:13)
[2022-09-25] MEDS: Docusate Sodium 100 MG CAPSULE PO ×2 (08:49→20:14)
[2022-09-25] MEDS: Calcium + Vitamin D 250 MG TABLET PO (08:49)
[2022-09-25] MEDS: Cholecalciferol (Vitamin D3) 25 MCG TABLET PO (08:49)
[2022-09-25] MEDS: Bethanechol Chloride 25 MG TABLET 50 MG PO ×2 (08:49→20:10)
[2022-09-25] MEDS: metFORMIN HCl ER 500 MG TAB.ER.24H PO (08:49)
[2022-09-25] MEDS: Buprenorphine/Naloxone 2/0.5mg FILM 1 FILM SUBLINGUAL (08:50)
[2022-09-25] MEDS: Multivitamin TABLET 1 TAB PO (08:50)
[2022-09-25] MEDS: atenoloL 25 MG TABLET PO (08:50)
[2022-09-25 09:28] VITALS: BP 101/54; PULSE 78; RESP 20; TEMP 36.6; O2SAT 96
[2022-09-25] MEDS: Nicotine 14 MG PATCH.TD24 TRANSDERMA (11:25)
--- NOTE | 2022-09-25 16:29 | HO.PSYCHPN ---
Subjective Subjective Date of Service: 09/25/22 Reason For Visit: SI/ psychosis Interim History: calm about the unit, a bit more harried in his presentation 1:1. states there has been no change for him from yesterday. agreeable to increase HS zyprexa to 20 mg. per staff, reporting panic attacks. CAH to kill self. poor appetite. took zyprexa PRNs overnight. Mental Status Exam Mental Status Exam Narrative: adequately groomed. cooperative with interview. mildly agitated gestures. speech with latin accent, incr rate, incr amount, nml loudness, nml tone, decr latency. thoughts linear and logical. affect constricted, hyper-intense, min-labile. endorses CAH to kill himself. Diagnostics Vital Signs (24Hr): Vital Signs - 24 hr 09/24/22 20:00 09/25/22 09:28 Temperature 97.8 F 97.9 F Pulse Rate 72 78 Respiratory Rate 18 20 Blood Pressure 141/78 H 101/54 L Pulse Oximetry 98 96 Oxygen Delivery Method Room Air Room Air BMI result Body Mass Index 25.7 Labs 09/23/22 11:46 09/23/22 11:46 Labs: Laboratory Results - last 48 hr 09/23/22 09/23/22 09/23/22 15:32 17:42 17:42 POC Glucose Urine Color Yellow Urine Appearance Clear Urine pH 6.0 Ur Specific [place] <= 1.005 Urine Protein Negative Urine Glucose (UA) Negative Urine Ketones Negative Urine Blood Negative Urine Nitrite Negative Ur Leukocyte Esterase Negative Salicylates < 5.0 L Urine Opiates Screen Not Detected Urine Fentanyl Screen Not Detected Acetaminophen < 17 Ur Barbiturates Screen Not Detected Ur Phencyclidine Scrn Not Detected Ur Amphetamines Screen Not Detected U Benzodiazepines Scrn Not Detected Urine Cocaine Screen Not Detected U Marijuana (THC) Screen Not Detected Ethyl Alcohol < 10 09/23/22 09/24/22 09/25/22 23:13 17:41 07:53 POC Glucose 108 105 154 H Urine Color Urine Appearance Urine pH Ur Specific [place] Urine Protein Urine Glucose (UA) Urine Ketones Urine Blood Urine Nitrite Ur Leukocyte Esterase Salicylates Urine Opiates Screen Urine Fentanyl Screen Acetaminophen Ur Barbiturates Screen Ur Phencyclidine Scrn Ur Amphetamines Screen U Benzodiazepines Scrn Urine Cocaine Screen U Marijuana (THC) Screen Ethyl Alcohol Medications Medications Current Medications Acetaminophen (Acetaminophen 325 Mg Tablet) 650 mg PO Q6H PRN PRN Reason: Headache/Pain Mild Scale (1-3) Al Hydroxide/Mg Hydroxide (Magnesium Hydrox/Alum Hydrox 30 Ml Oral.Susp) 30 ml PO Q6H PRN PRN Reason: Heartburn/Nausea Amitriptyline HCl (Amitriptyline Hcl 25 Mg Tablet) 125 mg PO BEDTIME [facility] Last Admin: 09/24/22 19:55 Dose: 125 mg Atenolol (Atenolol 25 Mg Tablet) 25 mg PO DAILY [facility]; Protocol Last Admin: 09/25/22 08:50 Dose: 25 mg Bethanechol Chloride (Bethanechol Chloride 25 Mg Tablet) 50 mg PO BID [facility] Last Admin: 09/25/22 08:49 Dose: 50 mg Buprenorphine/Naloxone (Buprenorphine/Naloxone 2/0.5mg Film) 1 film SUBLINGUAL DAILY [facility] Last Admin: 09/25/22 08:50 Dose: 1 film Calcium Carbonate/Cholecalciferol (Calcium + Vitamin D 250 Mg Tablet) 250 mg PO DAILY [facility] Last Admin: 09/25/22 08:49 Dose: 250 mg Clonidine HCl (Clonidine Hcl 0.2 Mg Tablet) 0.2 mg PO BID [facility]; Protocol Last Admin: 09/25/22 08:49 Dose: 0.2 mg Docusate Sodium (Docusate Sodium 100 Mg Capsule) 100 mg PO BID [facility] Last Admin: 09/25/22 08:49 Dose: 100 mg Doxazosin Mesylate (Doxazosin Mesylate 2 Mg Tablet) 4 mg PO BEDTIME [facility] Last Admin: 09/24/22 19:57 Dose: 4 mg Magnesium Hydroxide (Milk Of Magnesia 30 Ml Oral.Susp) 30 ml PO DAILY PRN PRN Reason: Constipation Last Admin: 09/24/22 08:32 Dose: 30 ml Melatonin (Melatonin 3 Mg Tablet) 9 mg PO BEDTIME [facility] Last Admin: 09/24/22 19:58 Dose: 9 mg Metformin HCl (Metformin Hcl Er 500 Mg Tab.Er.24h) 500 mg PO DAILY [facility] Last Admin: 09/25/22 08:49 Dose: 500 mg Mirtazapine (Mirtazapine 30 Mg Tablet) 30 mg PO BEDTIME [facility] Last Admin: 09/24/22 19:59 Dose: 30 mg Multivitamins/Vitamin C (Multivitamin Tablet) 1 tab PO DAILY [facility] Last Admin: 09/25/22 08:50 Dose: 1 tab Nicotine (Nicotine 14 Mg Patch.Td24) 14 mg TRANSDERMA DAILY [facility] Last Admin: 09/25/22 11:25 Dose: 14 mg Olanzapine (Olanzapine 10 Mg Tablet) 20 mg PO BEDTIME JAMES Olanzapine (Olanzapine 5 Mg Tablet) 5 mg PO QID PRN PRN Reason: agitation Vitamin D (Cholecalciferol (Vitamin D3) 25 Mcg Tablet) 25 mcg PO DAILY [facility] Last Admin: 09/25/22 08:49 Dose: 25 mcg Zolpidem Tartrate (Zolpidem Tartrate 5 Mg Tablet) 5 mg PO BEDTIME PRN PRN Reason: Insomnia Last Admin: 09/24/22 20:01 Dose: 5 mg Allergies Allergies Allergy/AdvReac Type Severity Reaction Status Date / Time trazodone [TRAZODONE] Allergy Severe FACIAL Verified 09/23/22 11:29 SWELLING, swelling cat dander [CATS] Allergy Intermediate FACIAL Verified 09/23/22 11:29 ITCHING doxepin [DOXEPIN] Allergy Intermediate WEIGHT Verified 09/23/22 11:29 GAIN/LEG SWELLING Iodinated Contrast Media Allergy Intermediate ITCHING Verified 09/23/22 11:29 [IV DYE, IODINE CONTAINING CONTRAST ] nitroglycerin [NITROGLYCERIN] Allergy Unknown UNKNOWN Verified 09/23/22 11:29 tramadol [TRAMADOL] Allergy Unknown UNKNOWN, Verified 09/23/22 11:29 dry mouth ibuprofen [From MOTRIN] AdvReac Intermediate GI UPSET Verified 09/23/22 11:29 quetiapine [From SEROQUEL] AdvReac Intermediate FACIAL Verified 09/23/22 11:29 SWELLING aspirin [ASPIRIN] AdvReac Mild Stomach Verified 09/23/22 11:29 Upset Ibuprofen Allergy Unknown stomach Uncoded 09/23/22 11:29 ache IV contrast Allergy Unknown Unknown Uncoded 09/23/22 11:29 Motrin Allergy Unknown stomach Uncoded 09/23/22 11:29 pain Assessment & Plan Assessment & Plan (1) Suicidal ideation: Status: Acute Code(s): R45.851 - Suicidal ideations (2) Incomplete emptying of bladder due to benign prostatic hyperplasia: Status: Acute Code(s): N40.1 - Benign prostatic hyperplasia with lower urinary tract symptoms; R33.9 - Retention of urine, unspecified (3) Schizoaffective disorder: Status: Acute Code(s): F25.9 - Schizoaffective disorder, unspecified (4) Opioid use disorder: Status: Acute Code(s): F11.99 - Opioid use, unspecified with unspecified opioid-induced disorder Plan 09/24: DC fluphenazine as inadequately sedating or stimulating of appetite. start zyprexa 5 TID PRN anxiety, 10 QHS. monitor for anti-Ch complications and switch back to typical neuroleptic if needed. bladder scans with straight cath over 300 cc. DM monitoring and management. 09/25: reports no change in Sx. increase HS zyprexa to 20 mg, increase PRNs available to 5 QID. otherwise continue current mgmt. Reason for continued inpatient stay Substantial Risk for: inability to function Time Spent With Patient Time: Total time managing care of this patient today __25__ minutes.
[2022-09-25 18:00] VITALS: BP 136/77; PULSE 70; RESP 16; TEMP 36.7; O2SAT 98
[2022-09-25] MEDS: OLANZapine 10 MG TABLET 20 MG PO (20:10)
[2022-09-25] MEDS: Amitriptyline HCl 25 MG TABLET 125 MG PO (20:11)
[2022-09-25] MEDS: Melatonin 3 MG TABLET 9 MG PO (20:12)
[2022-09-25] MEDS: Mirtazapine 30 MG TABLET PO (20:13)
[2022-09-25] MEDS: Doxazosin Mesylate 2 MG TABLET 4 MG PO (20:14)
[2022-09-25] MEDS: Zolpidem Tartrate 5 MG TABLET PO (20:14)
[2022-09-26] MEDS: OLANZapine 5 MG TABLET PO ×3 (01:38→15:32)
[2022-09-26] MEDS: Acetaminophen 325 MG TABLET 650 MG PO (04:33)
[2022-09-26 06:00] VITALS: BP 143/80; PULSE 78; RESP 18; TEMP 36.6; O2SAT 100
[2022-09-26] MEDS: Calcium + Vitamin D 250 MG TABLET PO (08:45)
[2022-09-26] MEDS: cloNIDine HCL 0.2 MG TABLET PO ×2 (08:45→20:15)
[2022-09-26] MEDS: Cholecalciferol (Vitamin D3) 25 MCG TABLET PO (08:46)
[2022-09-26] MEDS: Docusate Sodium 100 MG CAPSULE PO (08:46)
[2022-09-26] MEDS: Multivitamin TABLET 1 TAB PO (08:46)
[2022-09-26] MEDS: metFORMIN HCl ER 500 MG TAB.ER.24H PO (08:46)
[2022-09-26] MEDS: atenoloL 25 MG TABLET PO (08:47)
[2022-09-26] MEDS: Bethanechol Chloride 25 MG TABLET 50 MG PO ×2 (08:48→20:16)
[2022-09-26] MEDS: Nicotine 14 MG PATCH.TD24 TRANSDERMA (08:49)
[2022-09-26] MEDS: Buprenorphine/Naloxone 2/0.5mg FILM 1 FILM SUBLINGUAL (08:50)
--- NOTE | 2022-09-26 11:53 | P.PNPSI_ITS ---
Subjective Subjective Date of Service: 09/26/22 Reason For Visit: SI/ psychosis Interim History: seen with SW and per diem interpreter. detailed conversation today regarding Sx Hx and progression as well as details of AVH. ego dystonic CAH to suicide. states he is seeing monsters and snakes and horses in his room at night and he really believes they are there. states he is not feeling improved with meds, then allows he does sometimes when he is sitting in the milieu with other people around. pt was encouraged to spend time in groups and socially. zyprexa PRNs changed from QID to Q4H NTE $ in a day. per staff, anx/dep 01/13. reporting low appetite. c/o constipation. +CAH to kill himself. had several PRNs of zyprexa. attending some groups. no participation. Mental Status Exam Mental Status Exam Narrative: adequately groomed. cooperative with interview. mildly agitated with constant leg bouncing. speech with latin accent, incr rate, incr amount, nml loudness, nml tone, decr latency. thoughts linear and logical. affect constricted, hyper-intense, min-labile. endorses CAH to kill himself as well as VH of monsters. Diagnostics Vital Signs (24Hr): Vital Signs - 24 hr 09/25/22 18:00 09/26/22 06:00 Temperature 98.1 F 97.9 F Pulse Rate 70 78 Respiratory Rate 16 18 Blood Pressure 136/77 143/80 H Pulse Oximetry 98 100 Oxygen Delivery Method Room Air BMI result Body Mass Index 25.7 Labs 09/23/22 11:46 09/23/22 11:46 Labs: Laboratory Results - last 48 hr 09/24/22 09/25/22 17:41 07:53 POC Glucose 105 154 H Medications Medications Current Medications Acetaminophen (Acetaminophen 325 Mg Tablet) 650 mg PO Q6H PRN PRN Reason: Headache/Pain Mild Scale (1-3) Last Admin: 09/26/22 04:33 Dose: 650 mg Al Hydroxide/Mg Hydroxide (Magnesium Hydrox/Alum Hydrox 30 Ml Oral.Susp) 30 ml PO Q6H PRN PRN Reason: Heartburn/Nausea Amitriptyline HCl (Amitriptyline Hcl 25 Mg Tablet) 125 mg PO BEDTIME [facility] Last Admin: 09/25/22 20:11 Dose: 125 mg Atenolol (Atenolol 25 Mg Tablet) 25 mg PO DAILY [facility]; Protocol Last Admin: 09/26/22 08:47 Dose: 25 mg Bethanechol Chloride (Bethanechol Chloride 25 Mg Tablet) 50 mg PO BID [facility] Last Admin: 09/26/22 08:48 Dose: 50 mg Buprenorphine/Naloxone (Buprenorphine/Naloxone 2/0.5mg Film) 1 film SUBLINGUAL DAILY [facility] Last Admin: 09/26/22 08:50 Dose: 1 film Calcium Carbonate/Cholecalciferol (Calcium + Vitamin D 250 Mg Tablet) 250 mg PO DAILY [facility] Last Admin: 09/26/22 08:45 Dose: 250 mg Clonidine HCl (Clonidine Hcl 0.2 Mg Tablet) 0.2 mg PO BID [facility]; Protocol Last Admin: 09/26/22 08:45 Dose: 0.2 mg Docusate Sodium (Docusate Sodium 100 Mg Capsule) 100 mg PO BID [facility] Last Admin: 09/26/22 08:46 Dose: 100 mg Doxazosin Mesylate (Doxazosin Mesylate 2 Mg Tablet) 4 mg PO BEDTIME [facility] Last Admin: 09/25/22 20:14 Dose: 4 mg Magnesium Hydroxide (Milk Of Magnesia 30 Ml Oral.Susp) 30 ml PO DAILY PRN PRN Reason: Constipation Last Admin: 09/24/22 08:32 Dose: 30 ml Melatonin (Melatonin 3 Mg Tablet) 9 mg PO BEDTIME [facility] Last Admin: 09/25/22 20:12 Dose: 9 mg Metformin HCl (Metformin Hcl Er 500 Mg Tab.Er.24h) 500 mg PO DAILY [facility] Last Admin: 09/26/22 08:46 Dose: 500 mg Mirtazapine (Mirtazapine 30 Mg Tablet) 30 mg PO BEDTIME [facility] Last Admin: 09/25/22 20:13 Dose: 30 mg Multivitamins/Vitamin C (Multivitamin Tablet) 1 tab PO DAILY [facility] Last Admin: 09/26/22 08:46 Dose: 1 tab Nicotine (Nicotine 14 Mg Patch.Td24) 14 mg TRANSDERMA DAILY [facility] Last Admin: 09/26/22 08:49 Dose: 14 mg Olanzapine (Olanzapine 10 Mg Tablet) 20 mg PO BEDTIME [facility] Last Admin: 09/25/22 20:10 Dose: 20 mg Olanzapine (Olanzapine 5 Mg Tablet) 5 mg PO Q4H PRN PRN Reason: agitation/anxiety Last Admin: 09/26/22 10:58 Dose: 5 mg Vitamin D (Cholecalciferol (Vitamin D3) 25 Mcg Tablet) 25 mcg PO DAILY [facility] Last Admin: 09/26/22 08:46 Dose: 25 mcg Zolpidem Tartrate (Zolpidem Tartrate 5 Mg Tablet) 5 mg PO BEDTIME PRN PRN Reason: Insomnia Last Admin: 09/25/22 20:14 Dose: 5 mg Allergies Allergies Allergy/AdvReac Type Severity Reaction Status Date / Time trazodone [TRAZODONE] Allergy Severe FACIAL Verified 09/23/22 11:29 SWELLING, swelling cat dander [CATS] Allergy Intermediate FACIAL Verified 09/23/22 11:29 ITCHING doxepin [DOXEPIN] Allergy Intermediate WEIGHT Verified 09/23/22 11:29 GAIN/LEG SWELLING Iodinated Contrast Media Allergy Intermediate ITCHING Verified 09/23/22 11:29 [IV DYE, IODINE CONTAINING CONTRAST ] nitroglycerin [NITROGLYCERIN] Allergy Unknown UNKNOWN Verified 09/23/22 11:29 tramadol [TRAMADOL] Allergy Unknown UNKNOWN, Verified 09/23/22 11:29 dry mouth ibuprofen [From MOTRIN] AdvReac Intermediate GI UPSET Verified 09/23/22 11:29 quetiapine [From SEROQUEL] AdvReac Intermediate FACIAL Verified 09/23/22 11:29 SWELLING aspirin [ASPIRIN] AdvReac Mild Stomach Verified 09/23/22 11:29 Upset Ibuprofen Allergy Unknown stomach Uncoded 09/23/22 11:29 ache IV contrast Allergy Unknown Unknown Uncoded 09/23/22 11:29 Motrin Allergy Unknown stomach Uncoded 09/23/22 11:29 pain Assessment & Plan Assessment & Plan (1) Suicidal ideation: Status: Acute Code(s): R45.851 - Suicidal ideations (2) Incomplete emptying of bladder due to benign prostatic hyperplasia: Status: Acute Code(s): N40.1 - Benign prostatic hyperplasia with lower urinary tract symptoms; R33.9 - Retention of urine, unspecified (3) Schizoaffective disorder: Status: Acute Code(s): F25.9 - Schizoaffective disorder, unspecified (4) Opioid use disorder: Status: Acute Code(s): F11.99 - Opioid use, unspecified with unspecified opioid-induced disorder Plan 09/24: DC fluphenazine as inadequately sedating or stimulating of appetite. start zyprexa 5 TID PRN anxiety, 10 QHS. monitor for anti-Ch complications and switch back to typical neuroleptic if needed. bladder scans with straight cath over 300 cc. DM monitoring and management. 09/25: reports no change in Sx. increase HS zyprexa to 20 mg, increase PRNs available to 5 QID. otherwise continue current mgmt. 09/26: reports only small gains and not consistent. change PRNs from 5 QID to 5 Q4H NTE 4 in a day. otherwise continue current mgmt. target discharge date of thursday. Reason for continued inpatient stay Substantial Risk for: inability to function and rapid decompensation Time Spent With Patient Time: Total time managing care of this patient today __35__ minutes.
--- NOTE | 2022-09-26 16:30 | PC.NURSE ---
Addendum entered by Laly Vásquez RN 09/26/22 16:59: Dr. Sevilla encourages coping skills, no further orders at this time. Original Note: PT reports loud CAH as well as 10/10 anxiety. Zyprexa 5mg given with no effect. Dr. Sevilla contacted, awaiting response.
[2022-09-26 20:10] VITALS: BP 123/59; PULSE 72; RESP 17; TEMP 36.7; O2SAT 97
[2022-09-26] MEDS: Amitriptyline HCl 25 MG TABLET 125 MG PO (20:12)
[2022-09-26] MEDS: Zolpidem Tartrate 5 MG TABLET PO (20:14)
[2022-09-26] MEDS: Melatonin 3 MG TABLET 9 MG PO (20:14)
[2022-09-26] MEDS: Mirtazapine 30 MG TABLET PO (20:15)
[2022-09-26] MEDS: OLANZapine 10 MG TABLET 20 MG PO (20:15)
[2022-09-26] MEDS: Doxazosin Mesylate 2 MG TABLET 4 MG PO (20:16)
[2022-09-26] MEDS: Ondansetron ODT 4 MG TAB.RAPDIS TRANSLINGU (21:07)
[2022-09-27 07:45] VITALS: BP 132/89; PULSE 88; RESP 18; TEMP 36.8; O2SAT 97
[2022-09-27] MEDS: chlorproMAZINE HCl 100 MG TABLET 200 MG PO (07:46)
[2022-09-27] MEDS: Buprenorphine/Naloxone 2/0.5mg FILM 1 FILM SUBLINGUAL (07:52)
[2022-09-27] MEDS: Nicotine 14 MG PATCH.TD24 TRANSDERMA (07:52)
[2022-09-27] MEDS: Docusate Sodium 100 MG CAPSULE PO (07:55)
[2022-09-27] MEDS: Multivitamin TABLET 1 TAB PO (07:55)
[2022-09-27] MEDS: Bethanechol Chloride 25 MG TABLET 50 MG PO ×2 (07:56→20:36)
[2022-09-27] MEDS: Calcium + Vitamin D 250 MG TABLET PO (07:56)
[2022-09-27] MEDS: cloNIDine HCL 0.2 MG TABLET PO ×2 (07:56→20:35)
[2022-09-27] MEDS: metFORMIN HCl ER 500 MG TAB.ER.24H PO (07:57)
[2022-09-27] MEDS: Cholecalciferol (Vitamin D3) 25 MCG TABLET PO (07:57)
[2022-09-27] MEDS: atenoloL 25 MG TABLET PO (07:57)
[2022-09-27 07:58] LABS: Glucose, Whole Blood 179 mg/dL (60-115)
--- NOTE | 2022-09-27 08:01 | PC.NURSE ---
Approximately at 0730, pt went to the kitchen for an ice-cream, agitated, asking who is my nurse i need my medication pt walked away, flipped the table and threw his ice cream away. pt stated, the voices are too bad, I just want to . per pt, i need medication, i need klonopin or ativan. staff talked with pt and walked with pt to keep him call while staff communicated with MD to calm pt down, verbal intervention utilized. Provided did not want to order benzo, however, ordered thorazine 200mg po once. pt accepted medication and requested / received all morning scheduled medications. pt sitting in sensory room talking to staff, apologizing for behaviors. pt visibly more relaxed
[2022-09-27 08:53] LABS: Glucose, Whole Blood 127 mg/dL (60-115)
[2022-09-27] MEDS: Acetaminophen 325 MG TABLET 650 MG PO ×2 (10:32→20:37)
[2022-09-27] MEDS: Ondansetron ODT 4 MG TAB.RAPDIS TRANSLINGU (10:32)
[2022-09-27] MEDS: OLANZapine 5 MG TABLET PO (10:32)
[2022-09-27] MEDS: Dicyclomine HCl 10 MG CAPSULE PO (14:30)
[2022-09-27] MEDS: Divalproex Sodium 250 MG TABLET.DR 750 MG PO ×2 (14:30→20:37)
[2022-09-27] MEDS: Magnesium Hydrox/Alum Hydrox 30 ML ORAL.SUSP PO (15:42)
--- NOTE | 2022-09-27 16:38 | P.PNPSI_ITS ---
Subjective Subjective Date of Service: 09/27/22 Reason For Visit: SI/ psychosis Interim History: lying in bed early afternoon. says he was confused earlier today. asking for benzos, which MD declines, citing his h/o abuse of said medications. it is noted pt has not fallen asleep after getting thorazine 200 mg this morning, discussion of leon with experience of anxiety as manic energy had. pt agrees to trial of VPA. ashley also Rx'ed for pt's c/o stomach cramping. per staff, throwing garbage in milieu, overturning tables. this behavior appeared to be in response to limit-setting by staff re his medication administration time. c/o 01/13 anx/dep. +AH. poor sleep, appetite. Mental Status Exam Mental Status Exam Narrative: adequately groomed. cooperative with interview. mildly agitataed. speech with latin accent, incr rate, incr amount, nml loudness, nml tone, decr latency. thoughts linear and logical. affect constricted, hyper-intense, min-labile. no SI/HI/AVH expressed. Diagnostics Vital Signs (24Hr): Vital Signs - 24 hr 09/26/22 20:10 09/27/22 07:45 Temperature 98.1 F 98.2 F Pulse Rate 72 88 Respiratory Rate 17 18 Blood Pressure 123/59 L 132/89 Pulse Oximetry 97 97 Oxygen Delivery Method Room Air Room Air BMI result Body Mass Index 25.7 Labs 09/23/22 11:46 09/23/22 11:46 Labs: Laboratory Results - last 48 hr 09/27/22 09/27/22 07:53 08:49 POC Glucose 179 H 127 H Medications Medications Current Medications Acetaminophen (Acetaminophen 325 Mg Tablet) 650 mg PO Q6H PRN PRN Reason: Headache/Pain Mild Scale (1-3) Last Admin: 09/27/22 10:32 Dose: 650 mg Al Hydroxide/Mg Hydroxide (Magnesium Hydrox/Alum Hydrox 30 Ml Oral.Susp) 30 ml PO Q6H PRN PRN Reason: Heartburn/Nausea Last Admin: 09/27/22 15:42 Dose: 30 ml Amitriptyline HCl (Amitriptyline Hcl 25 Mg Tablet) 125 mg PO BEDTIME [facility] Last Admin: 09/26/22 20:12 Dose: 125 mg Atenolol (Atenolol 25 Mg Tablet) 25 mg PO DAILY [facility]; Protocol Last Admin: 09/27/22 07:57 Dose: 25 mg Bethanechol Chloride (Bethanechol Chloride 25 Mg Tablet) 50 mg PO BID [facility] Last Admin: 09/27/22 07:56 Dose: 50 mg Buprenorphine/Naloxone (Buprenorphine/Naloxone 2/0.5mg Film) 1 film SUBLINGUAL DAILY [facility] Last Admin: 09/27/22 07:52 Dose: 1 film Calcium Carbonate/Cholecalciferol (Calcium + Vitamin D 250 Mg Tablet) 250 mg PO DAILY [facility] Last Admin: 09/27/22 07:56 Dose: 250 mg Clonidine HCl (Clonidine Hcl 0.2 Mg Tablet) 0.2 mg PO BID [facility]; Protocol Last Admin: 09/27/22 07:56 Dose: 0.2 mg Divalproex Sodium (Divalproex Sodium 250 Mg Tablet.Dr) 750 mg PO BID [facility] Last Admin: 09/27/22 14:30 Dose: 750 mg Docusate Sodium (Docusate Sodium 100 Mg Capsule) 100 mg PO BID [facility] Last Admin: 09/27/22 07:55 Dose: 100 mg Doxazosin Mesylate (Doxazosin Mesylate 2 Mg Tablet) 4 mg PO BEDTIME [facility] Last Admin: 09/26/22 20:16 Dose: 4 mg Magnesium Hydroxide (Milk Of Magnesia 30 Ml Oral.Susp) 30 ml PO DAILY PRN PRN Reason: Constipation Last Admin: 09/24/22 08:32 Dose: 30 ml Melatonin (Melatonin 3 Mg Tablet) 9 mg PO BEDTIME [facility] Last Admin: 09/26/22 20:14 Dose: 9 mg Metformin HCl (Metformin Hcl Er 500 Mg Tab.Er.24h) 500 mg PO DAILY [facility] Last Admin: 09/27/22 07:57 Dose: 500 mg Mirtazapine (Mirtazapine 30 Mg Tablet) 30 mg PO BEDTIME [facility] Last Admin: 09/26/22 20:15 Dose: 30 mg Multivitamins/Vitamin C (Multivitamin Tablet) 1 tab PO DAILY [facility] Last Admin: 09/27/22 07:55 Dose: 1 tab Nicotine (Nicotine 14 Mg Patch.Td24) 14 mg TRANSDERMA DAILY [facility] Last Admin: 09/27/22 07:52 Dose: 14 mg Olanzapine (Olanzapine 10 Mg Tablet) 20 mg PO BEDTIME [facility] Last Admin: 09/26/22 20:15 Dose: 20 mg Olanzapine (Olanzapine 5 Mg Tablet) 5 mg PO Q4H PRN PRN Reason: agitation/anxiety Last Admin: 09/27/22 10:32 Dose: 5 mg Ondansetron HCl (Ondansetron Odt 4 Mg Tab.Rapdis) 4 mg TRANSLINGU Q6H PRN PRN Reason: Nausea Last Admin: 09/27/22 10:32 Dose: 4 mg Vitamin D (Cholecalciferol (Vitamin D3) 25 Mcg Tablet) 25 mcg PO DAILY [facility] Last Admin: 09/27/22 07:57 Dose: 25 mcg Zolpidem Tartrate (Zolpidem Tartrate 5 Mg Tablet) 5 mg PO BEDTIME PRN PRN Reason: Insomnia Last Admin: 09/26/22 20:14 Dose: 5 mg Allergies Allergies Allergy/AdvReac Type Severity Reaction Status Date / Time trazodone [TRAZODONE] Allergy Severe FACIAL Verified 09/23/22 11:29 SWELLING, swelling cat dander [CATS] Allergy Intermediate FACIAL Verified 09/23/22 11:29 ITCHING doxepin [DOXEPIN] Allergy Intermediate WEIGHT Verified 09/23/22 11:29 GAIN/LEG SWELLING Iodinated Contrast Media Allergy Intermediate ITCHING Verified 09/23/22 11:29 [IV DYE, IODINE CONTAINING CONTRAST ] nitroglycerin [NITROGLYCERIN] Allergy Unknown UNKNOWN Verified 09/23/22 11:29 tramadol [TRAMADOL] Allergy Unknown UNKNOWN, Verified 09/23/22 11:29 dry mouth ibuprofen [From MOTRIN] AdvReac Intermediate GI UPSET Verified 09/23/22 11:29 quetiapine [From SEROQUEL] AdvReac Intermediate FACIAL Verified 09/23/22 11:29 SWELLING aspirin [ASPIRIN] AdvReac Mild Stomach Verified 09/23/22 11:29 Upset Ibuprofen Allergy Unknown stomach Uncoded 09/23/22 11:29 ache IV contrast Allergy Unknown Unknown Uncoded 09/23/22 11:29 Motrin Allergy Unknown stomach Uncoded 09/23/22 11:29 pain Assessment & Plan Assessment & Plan (1) Suicidal ideation: Status: Acute Code(s): R45.851 - Suicidal ideations (2) Incomplete emptying of bladder due to benign prostatic hyperplasia: Status: Acute Code(s): N40.1 - Benign prostatic hyperplasia with lower urinary tract symptoms; R33.9 - Retention of urine, unspecified (3) Schizoaffective disorder: Status: Acute Code(s): F25.9 - Schizoaffective disorder, unspecified (4) Opioid use disorder: Status: Acute Code(s): F11.99 - Opioid use, unspecified with unspecified opioid-induced disorder Plan 09/24: DC fluphenazine as inadequately sedating or stimulating of appetite. start zyprexa 5 TID PRN anxiety, 10 QHS. monitor for anti-Ch complications and switch back to typical neuroleptic if needed. bladder scans with straight cath over 300 cc. DM monitoring and management. 09/25: reports no change in Sx. increase HS zyprexa to 20 mg, increase PRNs available to 5 QID. otherwise continue current mgmt. 09/26: reports only small gains and not consistent. change PRNs from 5 QID to 5 Q4H NTE 4 in a day. otherwise continue current mgmt. target discharge date of thursday. 09/27: add VPA 750 BID on the off chance this is an unusual presentation for leon. bentyl x 1 for sotmach cramping. period of agitation this morning, t hrowing food and overturning tables. Reason for continued inpatient stay Substantial Risk for: inability to function and rapid decompensation Time Spent With Patient Time: Total time managing care of this patient today ____ minutes.
--- NOTE | 2022-09-27 17:36 | PC.NURSE ---
Addendum entered by Laly Vásquez RN 09/27/22 17:47: PT states no effect from Zofran. MD aware. (Dr. Sevilla via tiger text) no further orders @ this time. Continue to monitor. Original Note: PT c/o nausea and vomiting today. Reports 2 episodes of large volume vomiting. Maalox administered by this database report writer at 15:42 with no effect. Zofran 4mg administered @ 17:20, effect pending.
[2022-09-27 20:25] VITALS: BP 114/71; PULSE 72; RESP 18; TEMP 36.7; O2SAT 97
[2022-09-27] MEDS: OLANZapine 10 MG TABLET 20 MG PO (20:34)
[2022-09-27] MEDS: Amitriptyline HCl 25 MG TABLET 125 MG PO (20:35)
[2022-09-27] MEDS: Zolpidem Tartrate 5 MG TABLET PO (20:35)
[2022-09-27] MEDS: Mirtazapine 30 MG TABLET PO (20:35)
[2022-09-27] MEDS: Doxazosin Mesylate 2 MG TABLET 4 MG PO (20:36)
[2022-09-27] MEDS: Melatonin 3 MG TABLET 9 MG PO (20:36)
[2022-09-28] MEDS: OLANZapine 5 MG TABLET PO ×2 (05:08→16:27)
[2022-09-28 06:00] VITALS: BP 172/80; PULSE 96; RESP 16; TEMP 36.6; O2SAT 99
[2022-09-28] MEDS: Bethanechol Chloride 25 MG TABLET 50 MG PO ×2 (08:22→20:41)
[2022-09-28] MEDS: cloNIDine HCL 0.2 MG TABLET PO ×2 (08:22→20:40)
[2022-09-28] MEDS: Calcium + Vitamin D 250 MG TABLET PO (08:22)
[2022-09-28] MEDS: Cholecalciferol (Vitamin D3) 25 MCG TABLET PO (08:22)
[2022-09-28] MEDS: Multivitamin TABLET 1 TAB PO (08:22)
[2022-09-28] MEDS: Buprenorphine/Naloxone 2/0.5mg FILM 1 FILM SUBLINGUAL (08:22)
[2022-09-28] MEDS: atenoloL 25 MG TABLET PO (08:22)
[2022-09-28] MEDS: metFORMIN HCl ER 500 MG TAB.ER.24H PO (08:22)
[2022-09-28 08:23] LABS: Glucose, Whole Blood 122 mg/dL (60-115)
[2022-09-28] MEDS: Nicotine 14 MG PATCH.TD24 TRANSDERMA (08:23)
[2022-09-28] MEDS: Docusate Sodium 100 MG CAPSULE PO ×2 (08:46→20:42)
[2022-09-28] MEDS: Divalproex Sodium 250 MG TABLET.DR 750 MG PO ×2 (08:59→20:41)
[2022-09-28] MEDS: chlorproMAZINE HCl 100 MG TABLET PO (12:08)
[2022-09-28] MEDS: Dicyclomine HCl 10 MG CAPSULE PO (13:58)
--- NOTE | 2022-09-28 14:48 | P.PNPSI_ITS ---
Subjective Subjective Date of Service: 09/28/22 Reason For Visit: SI/ psychosis Interim History: no change in presentation, although less animated/agitated. still very much alert. had thorazine PRN an hour prior to interview. c/o abd pain and asks for muscle relaxer again; ashley ordered PRN. pt seems quite pleased by the prescription and hurries out to get it from the RN. per staff, irritable eves. c/o diarrhea only, no more vomiting after he was asked to produce a sample. non-stop AVH with CAH to kill himself. staff report he appeared to sleep, he states he did not. Mental Status Exam Mental Status Exam Narrative: adequately groomed. cooperative with interview. mildly agitataed. speech with latin accent, incr rate, incr amount, nml loudness, nml tone, decr latency. thoughts linear and logical. affect constricted, hyper-intense, min-labile. no SI/HI/AVH expressed. Diagnostics Vital Signs (24Hr): Vital Signs - 24 hr 09/27/22 20:25 09/28/22 06:00 Temperature 98.0 F 97.8 F Pulse Rate 72 96 Respiratory Rate 18 16 Blood Pressure 114/71 172/80 H Pulse Oximetry 97 99 Oxygen Delivery Method Room Air Room Air BMI result Body Mass Index 25.7 Labs 09/23/22 11:46 09/23/22 11:46 Labs: Laboratory Results - last 48 hr 09/27/22 09/27/22 09/28/22 07:53 08:49 08:19 POC Glucose 179 H 127 H 122 H Medications Medications Current Medications Acetaminophen (Acetaminophen 325 Mg Tablet) 650 mg PO Q6H PRN PRN Reason: Headache/Pain Mild Scale (1-3) Last Admin: 09/27/22 20:37 Dose: 650 mg Al Hydroxide/Mg Hydroxide (Magnesium Hydrox/Alum Hydrox 30 Ml Oral.Susp) 30 ml PO Q6H PRN PRN Reason: Heartburn/Nausea Last Admin: 09/27/22 15:42 Dose: 30 ml Amitriptyline HCl (Amitriptyline Hcl 25 Mg Tablet) 125 mg PO BEDTIME [facility] Last Admin: 09/27/22 20:35 Dose: 125 mg Atenolol (Atenolol 25 Mg Tablet) 25 mg PO DAILY [facility]; Protocol Last Admin: 09/28/22 08:22 Dose: 25 mg Bethanechol Chloride (Bethanechol Chloride 25 Mg Tablet) 50 mg PO BID [facility] Last Admin: 09/28/22 08:22 Dose: 50 mg Buprenorphine/Naloxone (Buprenorphine/Naloxone 2/0.5mg Film) 1 film SUBLINGUAL DAILY [facility] Last Admin: 09/28/22 08:22 Dose: 1 film Calcium Carbonate/Cholecalciferol (Calcium + Vitamin D 250 Mg Tablet) 250 mg PO DAILY [facility] Last Admin: 09/28/22 08:22 Dose: 250 mg Clonidine HCl (Clonidine Hcl 0.2 Mg Tablet) 0.2 mg PO BID [facility]; Protocol Last Admin: 09/28/22 08:22 Dose: 0.2 mg Dicyclomine HCl (Dicyclomine Hcl 10 Mg Capsule) 10 mg PO Q6H PRN PRN Reason: spasm Last Admin: 09/28/22 13:58 Dose: 10 mg Divalproex Sodium (Divalproex Sodium 250 Mg Tablet.Dr) 750 mg PO BID [facility] Last Admin: 09/28/22 08:59 Dose: 750 mg Docusate Sodium (Docusate Sodium 100 Mg Capsule) 100 mg PO BID [facility] Last Admin: 09/28/22 08:46 Dose: 100 mg Doxazosin Mesylate (Doxazosin Mesylate 2 Mg Tablet) 4 mg PO BEDTIME [facility] Last Admin: 09/27/22 20:36 Dose: 4 mg Magnesium Hydroxide (Milk Of Magnesia 30 Ml Oral.Susp) 30 ml PO DAILY PRN PRN Reason: Constipation Last Admin: 09/24/22 08:32 Dose: 30 ml Melatonin (Melatonin 3 Mg Tablet) 9 mg PO BEDTIME [facility] Last Admin: 09/27/22 20:36 Dose: 9 mg Metformin HCl (Metformin Hcl Er 500 Mg Tab.Er.24h) 500 mg PO DAILY [facility] Last Admin: 09/28/22 08:22 Dose: 500 mg Mirtazapine (Mirtazapine 30 Mg Tablet) 30 mg PO BEDTIME [facility] Last Admin: 09/27/22 20:35 Dose: 30 mg Multivitamins/Vitamin C (Multivitamin Tablet) 1 tab PO DAILY [facility] Last Admin: 09/28/22 08:22 Dose: 1 tab Nicotine (Nicotine 14 Mg Patch.Td24) 14 mg TRANSDERMA DAILY [facility] Last Admin: 09/28/22 08:23 Dose: 14 mg Olanzapine (Olanzapine 10 Mg Tablet) 20 mg PO BEDTIME [facility] Last Admin: 09/27/22 20:34 Dose: 20 mg Olanzapine (Olanzapine 5 Mg Tablet) 5 mg PO Q4H PRN PRN Reason: agitation/anxiety Last Admin: 09/28/22 05:08 Dose: 5 mg Ondansetron HCl (Ondansetron Odt 4 Mg Tab.Rapdis) 4 mg TRANSLINGU Q6H PRN PRN Reason: Nausea Last Admin: 09/27/22 10:32 Dose: 4 mg Vitamin D (Cholecalciferol (Vitamin D3) 25 Mcg Tablet) 25 mcg PO DAILY [facility] Last Admin: 09/28/22 08:22 Dose: 25 mcg Zolpidem Tartrate (Zolpidem Tartrate 5 Mg Tablet) 5 mg PO BEDTIME PRN PRN Reason: Insomnia Last Admin: 09/27/22 20:35 Dose: 5 mg Allergies Allergies Allergy/AdvReac Type Severity Reaction Status Date / Time trazodone [TRAZODONE] Allergy Severe FACIAL Verified 09/23/22 11:29 SWELLING, swelling cat dander [CATS] Allergy Intermediate FACIAL Verified 09/23/22 11:29 ITCHING doxepin [DOXEPIN] Allergy Intermediate WEIGHT Verified 09/23/22 11:29 GAIN/LEG SWELLING Iodinated Contrast Media Allergy Intermediate ITCHING Verified 09/23/22 11:29 [IV DYE, IODINE CONTAINING CONTRAST ] nitroglycerin [NITROGLYCERIN] Allergy Unknown UNKNOWN Verified 09/23/22 11:29 tramadol [TRAMADOL] Allergy Unknown UNKNOWN, Verified 09/23/22 11:29 dry mouth ibuprofen [From MOTRIN] AdvReac Intermediate GI UPSET Verified 09/23/22 11:29 quetiapine [From SEROQUEL] AdvReac Intermediate FACIAL Verified 09/23/22 11:29 SWELLING aspirin [ASPIRIN] AdvReac Mild Stomach Verified 09/23/22 11:29 Upset Ibuprofen Allergy Unknown stomach Uncoded 09/23/22 11:29 ache IV contrast Allergy Unknown Unknown Uncoded 09/23/22 11:29 Motrin Allergy Unknown stomach Uncoded 09/23/22 11:29 pain Assessment & Plan Assessment & Plan (1) Suicidal ideation: Status: Acute Code(s): R45.851 - Suicidal ideations (2) Incomplete emptying of bladder due to benign prostatic hyperplasia: Status: Acute Code(s): N40.1 - Benign prostatic hyperplasia with lower urinary tract symptoms; R33.9 - Retention of urine, unspecified (3) Schizoaffective disorder: Status: Acute Code(s): F25.9 - Schizoaffective disorder, unspecified (4) Opioid use disorder: Status: Acute Code(s): F11.99 - Opioid use, unspecified with unspecified opioid-induced disorder Plan 09/24: DC fluphenazine as inadequately sedating or stimulating of appetite. st art zyprexa 5 TID PRN anxiety, 10 QHS. monitor for anti-Ch complications and switch back to typical neuroleptic if needed. bladder scans with straight cath over 300 cc. DM monitoring and management. 09/25: reports no change in Sx. increase HS zyprexa to 20 mg, increase PRNs available to 5 QID. otherwise continue current mgmt. 09/26: reports only small gains and not consistent. change PRNs from 5 QID to 5 Q4H NTE 4 in a day. otherwise continue current mgmt. target discharge date of thursday. 09/27: add VPA 750 BID on the off chance this is an unusual presentation for leon. bentyl x 1 for stomach cramping. period of agitation this morning, throwing food and overturning tables. 09/28: somewhat more calm this morning, but had a PRN of thorazine 100 mg. appears to be med-seeking for anything, somatically focused. this morning c/o abd pain asking for muscle relaxant. bentyl prescribed. Reason for continued inpatient stay Substantial Risk for: inability to function and rapid decompensation Time Spent With Patient Time: Total time managing care of this patient today ____ minutes.
[2022-09-28 19:50] VITALS: BP 112/75; PULSE 86; RESP 18; TEMP 36.8; O2SAT 99
[2022-09-28] MEDS: Magnesium Hydrox/Alum Hydrox 30 ML ORAL.SUSP PO (20:38)
[2022-09-28] MEDS: Amitriptyline HCl 25 MG TABLET 125 MG PO (20:39)
[2022-09-28] MEDS: Melatonin 3 MG TABLET 9 MG PO (20:39)
[2022-09-28] MEDS: Mirtazapine 30 MG TABLET PO (20:40)
[2022-09-28] MEDS: Doxazosin Mesylate 2 MG TABLET 4 MG PO (20:41)
[2022-09-28] MEDS: Zolpidem Tartrate 5 MG TABLET PO (20:42)
[2022-09-28] MEDS: OLANZapine 10 MG TABLET 20 MG PO (20:42)
[2022-09-29 08:00] VITALS: BP 130/67; PULSE 92; RESP 18; TEMP 36.9; O2SAT 98
[2022-09-29 08:14] LABS: Glucose, Whole Blood 119 mg/dL (60-115)
[2022-09-29] MEDS: Divalproex Sodium 250 MG TABLET.DR 750 MG PO (08:33)
[2022-09-29] MEDS: Calcium + Vitamin D 250 MG TABLET PO (08:34)
[2022-09-29] MEDS: metFORMIN HCl ER 500 MG TAB.ER.24H PO (08:34)
[2022-09-29] MEDS: Cholecalciferol (Vitamin D3) 25 MCG TABLET PO (08:35)
[2022-09-29] MEDS: Bethanechol Chloride 25 MG TABLET 50 MG PO (08:35)
[2022-09-29] MEDS: Multivitamin TABLET 1 TAB PO (08:36)
[2022-09-29] MEDS: atenoloL 25 MG TABLET PO (08:36)
[2022-09-29] MEDS: cloNIDine HCL 0.2 MG TABLET PO (08:36)
[2022-09-29] MEDS: Buprenorphine/Naloxone 2/0.5mg FILM 1 FILM SUBLINGUAL (08:37)
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
[2022-09-29] MEDS: OLANZapine 5 MG TABLET PO (12:23)
--- NOTE | 2022-09-29 13:45 | PC.NURSE ---
1335 Pt is ready and aware of discharge. Reviewed medications , instructions and need to make appointment for follow up. Belongings were given back to Pt to include cell phone and keys. [facility].
== END 2022-09-29 13:30 | disposition home health service (06) | DRG 750 ==
LOC: HO.ED 16:01 → HO.PADLT16 21:31
PROVIDERS: Physician Assistant; Physician Assistant Medical; Admitting Provider Psychiatry & Neurology Psychiatry; Emergency Provider Emergency Medicine; PCP Internal Medicine; Visit Provider Psychiatry & Neurology Psychiatry
DX: F25.9 Schizoaffective disorder, unspecified (principal); R45.851 Suicidal ideations; F11.20 Opioid dependence, uncomplicated; R39.14 Feeling of incomplete bladder emptying; N40.1 Benign prostatic hyperplasia with lower urinary tract symptoms; R33.8 Other retention of urine; Z20.822 Contact with and (suspected) exposure to COVID-19; Z79.84 Long term (current) use of oral hypoglycemic drugs; Z79.899 Other long term (current) drug therapy
CPT/HCPCS: 36415; 80053; 80143; 80179; 80307; 81003; 82947; 83690; 84484; 85025; 85610; 85730; 87635; 93005; 99285; J1885; S9485

== ENCOUNTER 2022-10-01 00:24 | Emergency (ER) | payer MEDICAID, SELFPAY ==
--- NOTE | ~2022-10-01 | XR_ITS ---
EXAMINATION: XR CHEST CLINICAL INFORMATION: Pain COMPARISON: 06/15/2022 TECHNIQUE: 2 views of the chest were obtained. FINDINGS: Lungs are mildly hypoinflated. No focal consolidation is seen. No evidence of pneumothorax, pleural effusion, or pulmonary edema. The cardiomediastinal contour is unremarkable. No acute osseous findings are seen. XR/XR chest 2V IMPRESSION: Low lung volumes without acute findings.
--- NOTE | 2022-10-01 00:28 | ECG_ITS ---
Test Reason : Chest pain Blood Pressure : / mmHG Vent. Rate : 117 BPM Atrial Rate : 117 BPM P-R Int : 138 ms QRS Dur : 080 ms QT Int : 350 ms P-R-T Axes : 025 001 058 degrees QTc Int : 488 ms Sinus tachycardia Minimal voltage criteria for LVH, may be normal variant ( R in aVL ) Nonspecific ST and T wave abnormality Abnormal ECG When compared with ECG of 23-SEP-2022 11:30, No significant change was found Referred By: Olivia Prabhakar Electronically Signed By:Scottie Figueroa
[2022-10-01 00:40] VITALS: BP 150/70; BP 175/101; PULSE 113; PULSE 130; RESP 20; TEMP 36.4; O2SAT 100; O2SAT 98; BMI 24.3
[2022-10-01 00:48] VITALS: BP 175/101; PULSE 113; RESP 21; O2SAT 98
[2022-10-01] MEDS: 0.9 % Sodium Chloride 1,000 ML 999 ML IV (01:14)
[2022-10-01] MEDS: ondansetron HCL 4 MG/2 ML VIAL IVPUSH (01:15)
[2022-10-01 01:20] LABS: MANUAL DIFF FLAG NO
[2022-10-01 01:22] LABS: Basophils Percent Auto 0.1 % (0-2); Eosinophils Percent Auto 0.1 % (0-4); Hematocrit 42.2 % (42.0-52.0); Hemoglobin 13.7 g/dl (14.0-18.0); Imm Gran Abs Auto 0.05 X10*3/uL (0.00-0.03); Imm Gran Pct Auto 0.4 % (0.0-0.4); Lymphocytes Absolute Auto 1.2 X10*3/uL (1.2-4.9); Mean Corpuscular HGB Conc 32.5 g/dl (31.0-36.0); Mean Corpuscular Hemoglobin 28.1 pg (27.0-33.0); Mean Corpuscular Volume 86.5 fL (80.0-98.0); Mean Platelet Volume 9.2 fL (9.4-12.4); Monocytes Absolute Auto 0.6 X10*3/uL (0.1-1.2); Monocytes Percent Auto 4.4 % (2-11); Neutrophils Absolute Auto 11.6 x10*3/uL (2.0-8.3); Platelet Count 249 X10*3/uL (160-400); Red Blood Count 4.88 X10*6/uL (4.60-5.80); Red Cell Distribution Width 14.1 % (11.0-16.0); White Blood Count 13.5 X10*3/uL (4.8-10.8)
[2022-10-01 01:28] LABS: Prothrombin Time 11.4 SEC (10.0-13.1)
--- NOTE | 2022-10-01 01:41 | ED_ITS ---
HPI - Chest Pain General Chief Complaint: Chest Pain Stated Complaint: cp with vomiting Time Seen by Provider: 10/01/22 00:46 Source: patient, RN notes reviewed, old records reviewed and supervisor [employer] Mode of arrival: EMS Limitations: language barrier History of Present Illness HPI narrative: A 52-year-old male with past medical history significant for GERD, osteoarthritis, bipolar disorder, anemia, achalasia, schizoaffective disorder, alcohol abuse, bipolar disorder presents for evaluation of chest pain and vomi ting Patient reports his symptoms started approximately 10 hours prior to arrival He reports that he was vomiting at home but is currently still nauseous He reports a 10 out of 10 stabbing chest pain that comes and goes Denies any fevers, chills, cough, shortness of breath He denies any personal history of cardiac disease He has no other complaints or concerns at this time Related Data Home Medications Medication Instructions Recorded Confirmed hydroxyzine HCl 50 mg tablet 50 mg PO QID PRN anxiety 03/03/22 09/23/22 amitriptyline 100 mg tablet 125 mg PO BEDTIME 07/11/22 09/23/22 atenolol 25 mg tablet 25 mg PO DAILY 07/11/22 09/23/22 cholecalciferol (vitamin D3) 25 25 mcg PO DAILY 07/11/22 09/23/22 mcg (1,000 unit) tablet (Vitamin D3) clonidine HCl 0.2 mg tablet 0.2 mg PO BID 07/11/22 09/23/22 melatonin 10 mg tablet 10 mg PO BEDTIME 07/11/22 09/23/22 metformin 500 mg tablet,extended 500 mg PO DAILY 07/11/22 09/23/22 release 24 hr terazosin 5 mg capsule 5 mg PO BEDTIME 07/11/22 09/23/22 Vitamin D (with calcium) 1 tab PO DAILY 09/23/22 09/23/22 mirtazapine 30 mg tablet 30 mg PO BEDTIME 09/23/22 09/23/22 zolpidem 10 mg tablet 12.5 mg PO BEDTIME PRN Insomnia 09/23/22 09/23/22 Previous Rx's Medication Instructions Recorded buprenorphine 2 mg-naloxone 0.5 mg 1 film buccal DAILY #6 ea 07/18/22 sublingual film (Suboxone) bethanechol chloride 50 mg tablet 50 mg PO BID 90 days #180 tabs 08/22/22 divalproex 250 mg tablet,delayed 750 mg PO BID 30 days #180 tabs 09/29/22 release docusate sodium 100 mg capsule 100 mg PO BID 30 days #60 caps 09/29/22 nicotine 14 mg/24 hr daily 14 mg transdermal DAILY 28 days 09/29/22 transdermal patch #28 ea olanzapine 10 mg tablet 20 mg PO BEDTIME 30 days #60 tabs 09/29/22 omeprazole 20 mg tablet,delayed 20 mg PO DAILY #14 tabs 10/01/22 release ondansetron 4 mg disintegrating 4 mg PO Q8H PRN nausea and 10/01/22 tablet vomiting #20 tabs Allergies Allergy/AdvReac Type Severity Reaction Status Date / Time trazodone [TRAZODONE] Allergy Severe FACIAL Verified 09/23/22 11:29 SWELLING, swelling cat dander [CATS] Allergy Intermediate FACIAL Verified 09/23/22 11:29 ITCHING doxepin [DOXEPIN] Allergy Intermediate WEIGHT Verified 09/23/22 11:29 GAIN/LEG SWELLING Iodinated Contrast Media Allergy Intermediate ITCHING Verified 09/23/22 11:29 [IV DYE, IODINE CONTAINING CONTRAST ] nitroglycerin [NITROGLYCERIN] Allergy Unknown UNKNOWN Verified 09/23/22 11:29 tramadol [TRAMADOL] Allergy Unknown UNKNOWN, Verified 09/23/22 11:29 dry mouth ibuprofen [From MOTRIN] AdvReac Intermediate GI UPSET Verified 09/23/22 11:29 quetiapine [From SEROQUEL] AdvReac Intermediate FACIAL Verified 09/23/22 11:29 SWELLING aspirin [ASPIRIN] AdvReac Mild Stomach Verified 09/23/22 11:29 Upset Ibuprofen Allergy Unknown stomach Uncoded 09/23/22 11:29 ache IV contrast Allergy Unknown Unknown Uncoded 09/23/22 11:29 Motrin Allergy Unknown stomach Uncoded 09/23/22 11:29 pain Review of Systems Constitutional: Constitutional: Reports as per HPI, Denies chills, Denies fatigue, Denies fever(s) and Denies headache(s) ENT: Denies headache(s) Cardiovascular: Cardiovascular: Reports chest pain and Denies dyspnea Respiratory: Respiratory: Denies cough and Denies dyspnea Gastrointestinal: Gastrointestinal: Denies abdominal pain, Denies constipation, Reports nausea and Reports vomiting Genitourinary: Genitourinary: Denies difficulty urinating and Denies dysuria Integumentary/Breasts: Skin/Breast: Denies rash Neurologic: Denies headache(s) Endocrine: Endocrine: Denies fatigue PMFSH Past Medical History Medical History Alcohol dependence Anxiety Chest pain Derangement of symphysis pubis Dysphagia GERD (gastroesophageal reflux disease) Low TSH level Major depressive disorder, recurrent severe without psychotic features Opioid abuse Weight loss Surgical History H/O umbilical hernia repair History of colonoscopy History of cystoscopy Family History Family History Father HTN (hypertension) Diabetes Mother HTN (hypertension) Stroke Alzheimer disease Heart disease Social History Social History Household Members: None Housing: Apartment Do you presently have visiting nurse or other home services: Yes Alcohol intake: never Patient Tobacco Use Status: Current everyday Tobacco user Tobacco use type: Cigarette Cigarette Packs Per Day: 1 Cigarettes Per Day: 20.0 Years Smoked: 9 Smoked in Last 30 Days: Yes e-Cigarette/Vaping Use: Never Used Second Hand Smoke Exposure: Yes Use of substances other than those prescribed or required for medical reasons: No Substance Use Type: Heroin and Opiates Advance Directives: Yes Advance Directives on File: Yes Advance Directives Date on File: 02/14/20 service: No Current occupational status: unemployed and disabled Sexual orientation: Straight/Heterosexual Physical Exam Vital Signs: Vital Signs: Last Vital Signs Temp 97.6 F 10/01/22 00:40 Pulse 113 H 10/01/22 00:48 Resp 21 H 10/01/22 00:48 BP 175/101 H 10/01/22 00:48 Pulse Ox 98 10/01/22 00:48 O2 Del Method Room Air 10/01/22 00:48 BMI result Body Mass Index 24.3 Const: General: healthy appearing, comfortable, no acute distress, alert and awake Nutritional Appearance: well nourished Orientation/consciousness: patient oriented x3 HEENT: Head: Yes normocephalic and Yes atraumatic Eyes: Eyelids: Yes eyelids normal Conjunctivae: conjunctivae normal Sclerae: sclerae normal Corneas: corneas normal Pupils: Equal, round and reactive pupils present EOM: EOMs intact bilaterally Neck: Neck: Yes full ROM Resp: Effort & Inspection: normal respiratory effort, able to speak in complete sentences, no audible wheezes and not labored Auscultation: clear to auscultation bilaterally Cardio: Rate: tachycardic Rhythm: regular rhythm GI: Inspection: No distended Palpation (GI): Soft to palpation, not firm, nontender, no guarding and not rigid Auscultation: normoactive bowel sounds Skin: General skin exam: no rashes or lesions noted and elasticity normal Neuro: General: patient oriented x3 Cranial nerves: Yes Equal, round and reactive pupils present and Yes Bilaterally intact EOM present Cognition (Neuro): normal cognition Course Reevaluation(s) Reevaluation #1: Patient's troponin negative, lipase negative, chest x-ray clear, EKG nonischemic. Renal function within normal limits. Again, patient is pain is most likely gastroenteritis/GERD which is a long history of. I discussed all this with the patient using a acquisition cost estimator. He is requesting something stronger for pain. Given his history of opiate abuse and lack of objective f indings. Will treat with Toradol, Protonix can avoid narcotics. The patient with me discharged with Zofran and Prilosec Medications Administered Discontinued Medications Generic Name Dose Route Start Last Admin Trade Name Freq PRN Reason Stop Dose Admin Sodium Chloride 1,000 mls @ 999 mls/hr 10/01/22 01:00 10/01/22 01:58 Ns IV 10/01/22 02:00 Infused .Q1H1M JAMES Infusion Ondansetron HCl 4 mg 10/01/22 00:56 10/01/22 01:15 Ondansetron Hcl 4 Mg/2 Ml Vial IVPUSH 10/01/22 00:57 4 mg ONCE ONE Administration Medical Decision Making Medical Decision Making [facility] Narrative: 52-year-old male presents for evaluation of chest pain and vomiting. His scribe's the pain as stabbing and intermittent. He is tachycardic to about 110, sinus rhythm. No evidence of ischemia on his EKG. Given his chest pain will get a cardiac workup including chest x-ray, troponin. Given the vomiting the patient's symptoms are likely gastroenteritis. His abdomen exam is reassuring. He is nontender, nondistended. Will treat with IV fluids, Zofran. Will re- evaluate and consider further testing depending on re-evaluation and labs Differential Diagnosis Chest pain Anxiety Substance abuse Alcohol withdrawal Gastroenteritis Acute pancreatitis NAOMI Lab Data 10/01/22 01:12 10/01/22 01:12 Labs: Lab Results 10/01/22 10/01/22 10/01/22 Range/Units 01:12 01:12 01:12 WBC 13.5 H (4.8-10.8) X10*3/uL RBC 4.88 (4.60-5.80) X10*6/uL Hgb 13.7 L (14.0-18.0) g/dl Hct 42.2 (42.0-52.0) % MCV 86.5 (80.0-98.0) fL MCH 28.1 (27.0-33.0) pg MCHC 32.5 (31.0-36.0) g/dl RDW 14.1 (11.0-16.0) % Plt Count 249 (160-400) X10*3/uL MPV 9.2 L (9.4-12.4) fL Immature Gran % (Auto) 0.4 (0.0-0.4) % Neut % (Auto) 86.0 H (45-73) % Lymph % (Auto) 9.0 L (20-40) % [place] % (Auto) 4.4 (2-11) % Eos % (Auto) 0.1 (0-4) % Baso % (Auto) 0.1 (0-2) % Lymph # (Auto) 1.2 (1.2-4.9) X10*3/uL [place] # (Auto) 0.6 (0.1-1.2) X10*3/uL Eos # (Auto) 0.0 (0.0-0.4) X10*3/uL Baso # (Auto) 0.0 (0.0-0.2) X10*3/uL Abs Immat Gran (auto) 0.05 H (0.00-0.03) X10*3/uL Absolute Neuts (auto) 11.6 H (2.0-8.3) x10*3/uL Absolute Nucleated RBC 0.000 (0.0-0.012) X10*3/uL Nucleated RBC % (auto) 0.0 (0.0-0.2) /100WBC PT 11.4 (10.0-13.1) SEC INR 1.0 (0.9-1.1) Sodium 137 (135-145) mmol/L Potassium 3.8 (3.3-5.1) mmol/L Chloride 91 L (96-108) mmol/L Carbon Dioxide 31 H (22-29) mmol/L Anion Gap 19 (12-20) BUN 4 L (9-16) mg/dL Creatinine 0.82 (0.5-1.4) mg/dL Estim Creat Clear Calc 99.6 Estimated GFR > 60 Random Glucose 191 H (60-115) mg/dL Calcium 10.6 H D (8.4-10.2) mg/dL Total Bilirubin 0.6 (0.0-1.0) mg/dL AST 15 (5-37) U/L ALT 18 (0-40) U/L Alkaline Phosphatase 83 (39-117) U/L Total Creatine Kinase 117 (38-174) U/L Troponin I High Sens (<3.5-35.0) ng/L Total Protein 8.6 H (6.5-8.0) g/dL Albumin 4.7 (3.5-5.0) g/dL Lipase 16 (8-78) U/L Ethyl Alcohol < 10 mg/dL 10/01/22 Range/Units 01:12 WBC (4.8-10.8) X10*3/uL RBC (4.60-5.80) X10*6/uL Hgb (14.0-18.0) g/dl Hct (42.0-52.0) % MCV (80.0-98.0) fL MCH (27.0-33.0) pg MCHC (31.0-36.0) g/dl RDW (11.0-16.0) % Plt Count (160-400) X10*3/uL MPV (9.4-12.4) fL Immature Gran % (Auto) (0.0-0.4) % Neut % (Auto) (45-73) % Lymph % (Auto) (20-40) % [place] % (Auto) (2-11) % Eos % (Auto) (0-4) % Baso % (Auto) (0-2) % Lymph # (Auto) (1.2-4.9) X10*3/uL [place] # (Auto) (0.1-1.2) X10*3/uL Eos # (Auto) (0.0-0.4) X10*3/uL Baso # (Auto) (0.0-0.2) X10*3/uL Abs Immat Gran (auto) (0.00-0.03) X10*3/uL Absolute Neuts (auto) (2.0-8.3) x10*3/uL Absolute Nucleated RBC (0.0-0.012) X10*3/uL Nucleated RBC % (auto) (0.0-0.2) /100WBC PT (10.0-13.1) SEC INR (0.9-1.1) Sodium (135-145) mmol/L Potassium (3.3-5.1) mmol/L Chloride (96-108) mmol/L Carbon Dioxide (22-29) mmol/L Anion Gap (12-20) BUN (9-16) mg/dL Creatinine (0.5-1.4) mg/dL Estim Creat Clear Calc Estimated GFR Random Glucose (60-115) mg/dL Calcium (8.4-10.2) mg/dL Total Bilirubin (0.0-1.0) mg/dL AST (5-37) U/L ALT (0-40) U/L Alkaline Phosphatase (39-117) U/L Total Creatine Kinase (38-174) U/L Troponin I High Sens < 2.7 (<3.5-35.0) ng/L Total Protein (6.5-8.0) g/dL Albumin (3.5-5.0) g/dL Lipase (8-78) U/L Ethyl Alcohol mg/dL Discharge Plan Discharge Clinical Impression: Chest pain, Vomiting Patient Disposition: Home, Self-Care Instructions: Gastroesophageal Reflux Disease (ED) Additional Instructions: Use Zofran as needed for nausea and vomiting. Use Prilosec daily for the next 2 weeks. Follow-up with your GI doctor Prescriptions: New ondansetron 4 mg tablet,disintegrating 4 mg PO Q8H PRN (Reason: nausea and vomiting) Qty: 20 0RF omeprazole 20 mg tablet,delayed release (DR/EC) 20 mg PO DAILY Qty: 14 0RF No Action bethanechol chloride 50 mg tablet 50 mg PO BID 90 Days Qty: 180 1RF metformin 500 mg Tablet Extended Release 24 Hr 500 mg PO DAILY atenolol 25 mg Tablet 25 mg PO DAILY amitriptyline 100 mg Tablet 125 mg PO BEDTIME cholecalciferol (vitamin D3) [Vitamin D3] 25 mcg (1,000 unit) Tablet 25 mcg PO DAILY clonidine HCl 0.2 mg Tablet 0.2 mg PO BID melatonin 10 mg Tablet 10 mg PO BEDTIME terazosin 5 mg Capsule 5 mg PO BEDTIME buprenorphine-naloxone [Suboxone] 2-0.5 mg film 1 film buccal DAILY Qty: 6 0RF Rx Instructions: place 1 strip/tab under (each) side of tongue mirtazapine 30 mg tablet 30 mg PO BEDTIME zolpidem 10 mg tablet 12.5 mg PO BEDTIME PRN (Reason: Insomnia) Vitamin D (with calcium) 1 tab PO DAILY Rx Instructions: unknown dose, OTC nicotine 14 mg/24 hr Patch 24 Hour 14 mg transdermal DAILY 28 Days Qty: 28 0RF divalproex 250 mg Tablet,Delayed Release (Dr/Ec) 750 mg PO BID 30 Days Qty: 180 0RF olanzapine 10 mg Tablet 20 mg PO BEDTIME 30 Days Qty: 60 0RF docusate sodium 100 mg Capsule 100 mg PO BID 30 Days Qty: 60 0RF hydroxyzine HCl 50 mg tablet 50 mg PO QID PRN (Reason: anxiety) Referrals: Dionne Kaur MD [Physician] - (gerd, achalasia)
[2022-10-01 01:45] LABS: Alanine Aminotransferase 18 U/L (0-40); Albumin Level 4.7 g/dL (3.5-5.0); Alkaline Phosphatase 83 U/L (39-117); Anion Gap 19 (12-20); Aspartate Amino Transferase 15 U/L (5-37); Bilirubin Total 0.6 mg/dL (0.0-1.0); Blood Urea Nitrogen 4 mg/dL (9-16); Calcium 10.6 mg/dL (8.4-10.2); Carbon Dioxide 31 mmol/L (22-29); Chloride 91 mmol/L (96-108); Creatinine Clr Calc Pharmacy 99.6; Estimated Glomerular Filt Rate > 60; Ethanol < 10 mg/dL; Glucose Random 191 mg/dL (60-115); Lipase 16 U/L (8-78); Potassium 3.8 mmol/L (3.3-5.1); Sodium 137 mmol/L (135-145); Total Protein 8.6 g/dL (6.5-8.0)
[2022-10-01 01:49] LABS: Troponin-I High Sensitivity < 2.7 ng/L (<3.5-35.0)
[2022-10-01 02:00] VITALS: BP 161/99; PULSE 98; RESP 20; O2SAT 96
[2022-10-01] MEDS: Ketorolac Tromethamine 30 MG/ML VIAL IVPUSH (02:04)
[2022-10-01] MEDS: Pantoprazole Sodium 40 MG/10 ML VIAL IVPUSH (02:04)
== END 2022-10-01 02:13 | disposition home or self-care (01) ==
PROVIDERS: Student in an Organized Health Care Education/Training Program; Emergency Provider Internal Medicine; PCP Internal Medicine
DX: R07.9 Chest pain, unspecified (principal); R11.2 Nausea with vomiting, unspecified; Z79.899 Other long term (current) drug therapy
CPT/HCPCS: 36415; 71046; 80053; 80307; 82550; 83690; 84484; 85025; 85610; 93005; 96361; 96374; 96375; 99284; 99285; J1885; J2405

== ENCOUNTER 2022-10-08 04:23 | Emergency (ER) | payer MEDICAID, SELFPAY ==
[2022-10-08 04:31] VITALS: BP 129/62; BP 132/70; PULSE 70; PULSE 74; RESP 16; TEMP 36.8; O2SAT 98; O2SAT 99; BMI 27.5
--- NOTE | 2022-10-08 04:34 | ED.GENADULT ---
HPI - General Adult General Chief complaint: General Medical Stated complaint: chest and abdominal pain Time Seen by Provider: 10/08/22 04:30 Source: patient Mode of arrival: ambulatory Limitations: no limitations History of Present Illness HPI narrative: Patient comes in the emergency room complaining of chest pain and abdominal pain for approximately 7 hours. Patient states this started while watching TV. Patient complaining of nausea, vomiting, no diarrhea. Patient states that only thing that will help his pain is morphine. Related Data Home Medications Medication Instructions Recorded Confirmed hydroxyzine HCl 50 mg tablet 50 mg PO QID PRN anxiety 03/03/22 09/23/22 amitriptyline 100 mg tablet 125 mg PO BEDTIME 07/11/22 09/23/22 atenolol 25 mg tablet 25 mg PO DAILY 07/11/22 09/23/22 cholecalciferol (vitamin D3) 25 25 mcg PO DAILY 07/11/22 09/23/22 mcg (1,000 unit) tablet (Vitamin D3) clonidine HCl 0.2 mg tablet 0.2 mg PO BID 07/11/22 09/23/22 melatonin 10 mg tablet 10 mg PO BEDTIME 07/11/22 09/23/22 metformin 500 mg tablet,extended 500 mg PO DAILY 07/11/22 09/23/22 release 24 hr terazosin 5 mg capsule 5 mg PO BEDTIME 07/11/22 09/23/22 Vitamin D (with calcium) 1 tab PO DAILY 09/23/22 09/23/22 mirtazapine 30 mg tablet 30 mg PO BEDTIME 09/23/22 09/23/22 zolpidem 10 mg tablet 12.5 mg PO BEDTIME PRN Insomnia 09/23/22 09/23/22 Previous Rx's Medication Instructions Recorded buprenorphine 2 mg-naloxone 0.5 mg 1 film buccal DAILY #6 ea 07/18/22 sublingual film (Suboxone) bethanechol chloride 50 mg tablet 50 mg PO BID 90 days #180 tabs 08/22/22 divalproex 250 mg tablet,delayed 750 mg PO BID 30 days #180 tabs 09/29/22 release docusate sodium 100 mg capsule 100 mg PO BID 30 days #60 caps 09/29/22 nicotine 14 mg/24 hr daily 14 mg transdermal DAILY 28 days 09/29/22 transdermal patch #28 ea olanzapine 10 mg tablet 20 mg PO BEDTIME 30 days #60 tabs 09/29/22 omeprazole 20 mg tablet,delayed 20 mg PO DAILY #14 tabs 10/01/22 release ondansetron 4 mg disintegrating 4 mg PO Q8H PRN nausea and 10/01/22 tablet vomiting #20 tabs Allergies Allergy/AdvReac Type Severity Reaction Status Date / Time trazodone [TRAZODONE] Allergy Severe FACIAL Verified 09/23/22 11:29 SWELLING, swelling cat dander [CATS] Allergy Intermediate FACIAL Verified 09/23/22 11:29 ITCHING doxepin [DOXEPIN] Allergy Intermediate WEIGHT Verified 09/23/22 11:29 GAIN/LEG SWELLING Iodinated Contrast Media Allergy Intermediate ITCHING Verified 09/23/22 11:29 [IV DYE, IODINE CONTAINING CONTRAST ] nitroglycerin [NITROGLYCERIN] Allergy Unknown UNKNOWN Verified 09/23/22 11:29 tramadol [TRAMADOL] Allergy Unknown UNKNOWN, Verified 09/23/22 11:29 dry mouth ibuprofen [From MOTRIN] AdvReac Intermediate GI UPSET Verified 09/23/22 11:29 quetiapine [From SEROQUEL] AdvReac Intermediate FACIAL Verified 09/23/22 11:29 SWELLING aspirin [ASPIRIN] AdvReac Mild Stomach Verified 09/23/22 11:29 Upset Ibuprofen Allergy Unknown stomach Uncoded 09/23/22 11:29 ache IV contrast Allergy Unknown Unknown Uncoded 09/23/22 11:29 Motrin Allergy Unknown stomach Uncoded 09/23/22 11:29 pain Review of Systems Review of Systems: Constitutional : No Weight loss, No Fever, No Chills, No Night Sweats, No Fatigue, No Malaise ENT/Mouth : No Hearing loss, No Ear Pain, No Nasal Congestion, No Sinus Pain, No Hoarseness, No sore throat, No Rhinorrhea, No Swallowing Difficulty Eyes: No Eye Pain, No Swelling, No Redness, No Foreign Body, No Discharge, No Vision Changes Cardiovascular : Complaining of bilateral Chest Pain, No SOB, No Dyspnea on Exertion, No Orthopnea, No Edema, No Palpitations Respiratory : No Cough, No Sputum, No Wheezing, No Smoke Exposure, No Dyspnea Gastrointestinal : No Nausea, No Vomiting, No Diarrhea, No Constipation, complaining of epigastric pain Genitourinary : no irregular bleeding, No Dysuria, No Urinary Frequency, No Hematuria, No Urinary Incontinence, No Urgency, No Flank Pain, No Urinary Flow Changes, No Hesitancy Musculoskeletal : No joint pain, No Myalgias, No Joint Swelling Skin : No Skin Lesions, No rash Neuro : No Weakness, No Numbness, No Paresthesias, No Loss of Consciousness, No Dizziness, No Headache Psych : No Anxiety/Panic, No Depression, No SI/HI/AH/VH, No Social Issues, Heme/Lymph: No Bruising, No Bleeding,No Lymphadenopathy Endocrine : No Polyuria, No Polydipsia, No Temperature Intolerance [facility] Past Medical History Medical History Alcohol dependence Anxiety Chest pain Derangement of symphysis pubis Dysphagia GERD (gastroesophageal reflux disease) Low TSH level Major depressive disorder, recurrent severe without psychotic features Opioid abuse Weight loss Surgical History H/O umbilical hernia repair History of colonoscopy History of cystoscopy Family History Family History Father HTN (hypertension) Diabetes Mother HTN (hypertension) Stroke Alzheimer disease Heart disease Social History Social History Household Members: None Housing: Apartment Do you presently have visiting nurse or other home services: Yes Alcohol intake: never Patient Tobacco Use Status: Current everyday Tobacco user Tobacco use type: Cigarette Cigarette Packs Per Day: 1 Cigarettes Per Day: 20.0 Years Smoked: 9 e-Cigarette/Vaping Use: Never Used Second Hand Smoke Exposure: Yes Substance Use Type: Heroin and Opiates Advance Directives: Yes Advance Directives on File: Yes Advance Directives Date on File: 02/14/20 service: No Current occupational status: unemployed and disabled Sexual orientation: Straight/Heterosexual Physical Exam ED Vital Signs: Vital Signs - 24 hr 10/08/22 04:31 Temperature 98.2 F Pulse Rate 70 Respiratory Rate 16 Blood Pressure 129/62 Pulse Oximetry 99 Oxygen Delivery Method Room Air BMI result Body Mass Index 27.5 Const Other: Appearance: Alert. Oriented X3. No acute distress. Well-appearing Eyes: Pupils equal, round and reactive to light. ENT: Pharynx normal. Neck: Normal inspection. Neck supple. No lymph nodes noted. No crepitus CVS: Normal heart rate and rhythm. Pulses normal. Normal S1 and S2 Respiratory: No respiratory distress. Breath sounds normal. No Wheezing. No rales Abdomen: Soft and nontender. No rigidity. No distention. Skin: Skin warm and dry. Normal skin color. Normal skin turgor. Extremities: No lower extremity edema. No Lacerations. No Rash Neuro: Oriented X 3. No motor deficit. No sensory deficit. Moving all extremities. No slurred speech. CN 2 through 12 grossly intact Psych: calm, cooperative, normal affect Course Course Course Narrative: -on physical exam, patient does not seem to have any abdominal pain. Patient requesting morphine -all of patient's labs pending. Medications Administered Discontinued Medications Generic Name Dose Route Start Last Admin Trade Name Freq PRN Reason Stop Dose Admin Potassium Chloride 40 meq 10/08/22 05:13 10/08/22 05:18 Potassium Chloride Packet 20 Meq Packet PO 10/08/22 05:14 40 meq ONCE ONE Administration Medical Decision Making Medical Decision Making [facility] Narrative: -patient has had multiple visits for chest pain throughout the patient's history, admission being considered, workup pending. -EKG my interpretation: Normal sinus rhythm, heart rate 68, no ST segment depression elevation, no T-wave inversion, QTC 442 -my interpretation of labs, patient's potassium is slightly decreased, 3.2, patient was repleted with p.o. potassium. Otherwise, troponin negative, patient has had symptoms more than 6 hours. -patient ready for discharge Differential Diagnosis Differential Diagnoses: The differential diagnosis associated with the presentation includes (Atypical chest pain 1 pancreatitis, GERD) Admission/Observation Consideration of admission/observation: Escalation of care including admission/observation considered Lab Data [facility] Lab Attestation statement: I reviewed the patient's lab results. 10/08/22 04:39 10/08/22 04:39 Labs: Lab Results 10/08/22 10/08/22 10/08/22 Range/Units 04:39 04:39 04:39 WBC 7.5 (4.8-10.8) X10*3/uL RBC 3.78 L D (4.60-5.80) X10*6/uL Hgb 10.9 L D (14.0-18.0) g/dl Hct 33.2 L D (42.0-52.0) % MCV 87.8 (80.0-98.0) fL MCH 28.8 (27.0-33.0) pg MCHC 32.8 (31.0-36.0) g/dl RDW 15.2 (11.0-16.0) % Plt Count 202 (160-400) X10*3/uL MPV 9.2 L (9.4-12.4) fL Immature Gran % (Auto) 0.4 (0.0-0.4) % Neut % (Auto) 59.7 (45-73) % Lymph % (Auto) 30.9 (20-40) % Crane % (Auto) 5.9 (2-11) % Eos % (Auto) 2.8 (0-4) % Baso % (Auto) 0.3 (0-2) % Lymph # (Auto) 2.3 (1.2-4.9) X10*3/uL Crane # (Auto) 0.4 (0.1-1.2) X10*3/uL Eos # (Auto) 0.2 (0.0-0.4) X10*3/uL Baso # (Auto) 0.0 (0.0-0.2) X10*3/uL Abs Immat Gran (auto) 0.03 (0.00-0.03) X10*3/uL Absolute Neuts (auto) 4.5 (2.0-8.3) x10*3/uL Absolute Nucleated RBC 0.000 (0.0-0.012) X10*3/uL Nucleated RBC % (auto) 0.0 (0.0-0.2) /100WBC PT (10.0-13.1) SEC INR (0.9-1.1) Sodium 144 (135-145) mmol/L Potassium 3.2 L (3.3-5.1) mmol/L Chloride 108 (96-108) mmol/L Carbon Dioxide 28 (22-29) mmol/L Anion Gap 11 L (12-20) BUN 4 L (9-16) mg/dL Creatinine 0.80 (0.5-1.4) mg/dL Estim Creat Clear Calc 99.8 Estimated GFR > 60 Random Glucose 136 H (60-115) mg/dL Calcium 8.7 D (8.4-10.2) mg/dL Magnesium 1.9 (1.6-2.6) mg/dL Total Bilirubin 0.3 (0.0-1.0) mg/dL Direct Bilirubin 0.1 (0.0-0.5) mg/dL AST 18 (5-37) U/L ALT 25 (0-40) U/L Alkaline Phosphatase 54 (39-117) U/L Troponin I High Sens < 2.7 (<3.5-35.0) ng/L Total Protein 6.1 L (6.5-8.0) g/dL Albumin 3.2 L (3.5-5.0) g/dL Lipase 9 (8-78) U/L Ethyl Alcohol mg/dL 10/08/22 10/08/22 Range/Units 04:39 04:39 WBC (4.8-10.8) X10*3/uL RBC (4.60-5.80) X10*6/uL Hgb (14.0-18.0) g/dl Hct (42.0-52.0) % MCV (80.0-98.0) fL MCH (27.0-33.0) pg MCHC (31.0-36.0) g/dl RDW (11.0-16.0) % Plt Count (160-400) X10*3/uL MPV (9.4-12.4) fL Immature Gran % (Auto) (0.0-0.4) % Neut % (Auto) (45-73) % Lymph % (Auto) (20-40) % Crane % (Auto) (2-11) % Eos % (Auto) (0-4) % Baso % (Auto) (0-2) % Lymph # (Auto) (1.2-4.9) X10*3/uL Crane # (Auto) (0.1-1.2) X10*3/uL Eos # (Auto) (0.0-0.4) X10*3/uL Baso # (Auto) (0.0-0.2) X10*3/uL Abs Immat Gran (auto) (0.00-0.03) X10*3/uL Absolute Neuts (auto) (2.0-8.3) x10*3/uL Absolute Nucleated RBC (0.0-0.012) X10*3/uL Nucleated RBC % (auto) (0.0-0.2) /100WBC PT 11.0 (10.0-13.1) SEC INR 1.0 (0.9-1.1) Sodium (135-145) mmol/L Potassium (3.3-5.1) mmol/L Chloride (96-108) mmol/L Carbon Dioxide (22-29) mmol/L Anion Gap (12-20) BUN (9-16) mg/dL Creatinine (0.5-1.4) mg/dL Estim Creat Clear Calc Estimated GFR Random Glucose (60-115) mg/dL Calcium (8.4-10.2) mg/dL Magnesium (1.6-2.6) mg/dL Total Bilirubin (0.0-1.0) mg/dL Direct Bilirubin (0.0-0.5) mg/dL AST (5-37) U/L ALT (0-40) U/L Alkaline Phosphatase (39-117) U/L Troponin I High Sens (<3.5-35.0) ng/L Total Protein (6.5-8.0) g/dL Albumin (3.5-5.0) g/dL Lipase (8-78) U/L Ethyl Alcohol < 10 mg/dL Independent Interpretation I performed an independent interpretation of an: Plain X-Ray (My interpretation of chest x-ray: No acute findings, no infiltrates.) Radiology Impression Discussion of test interpretation with radiology: I have reviewed the radiologist's reading. Radiologist Impression: FINDINGS: Streaky opacities at the right lung base, likely subsegmental atelectasis. No discrete consolidation. No pleural effusion. No pneumothorax.? Cardiomediastinal silhouette and pulmonary vascularity are within normal limits. No acute osseous abnormalities. XR/XR chest 1V IMPRESSION: No acute findings. Discharge Plan Discharge Clinical Impression: Abdominal pain, Atypical chest pain Patient Disposition: Home, Self-Care Instructions: Chest Pain (ED) Additional Instructions: Please follow-up with your primary care physician tomorrow. If you have any worsening or new symptoms, please return to the emergency room or call 911 Prescriptions: No Action bethanechol chloride 50 mg tablet 50 mg PO BID 90 Days Qty: 180 1RF metformin 500 mg Tablet Extended Release 24 Hr 500 mg PO DAILY atenolol 25 mg Tablet 25 mg PO DAILY amitriptyline 100 mg Tablet 125 mg PO BEDTIME cholecalciferol (vitamin D3) [Vitamin D3] 25 mcg (1,000 unit) Tablet 25 mcg PO DAILY clonidine HCl 0.2 mg Tablet 0.2 mg PO BID melatonin 10 mg Tablet 10 mg PO BEDTIME terazosin 5 mg Capsule 5 mg PO BEDTIME buprenorphine-naloxone [Suboxone] 2-0.5 mg film 1 film buccal DAILY Qty: 6 0RF Rx Instructions: place 1 strip/tab under (each) side of tongue mirtazapine 30 mg tablet 30 mg PO BEDTIME zolpidem 10 mg tablet 12.5 mg PO BEDTIME PRN (Reason: Insomnia) Vitamin D (with calcium) 1 tab PO DAILY Rx Instructions: unknown dose, OTC nicotine 14 mg/24 hr Patch 24 Hour 14 mg transdermal DAILY 28 Days Qty: 28 0RF divalproex 250 mg Tablet,Delayed Release (Dr/Ec) 750 mg PO BID 30 Days Qty: 180 0RF olanzapine 10 mg Tablet 20 mg PO BEDTIME 30 Days Qty: 60 0RF docusate sodium 100 mg Capsule 100 mg PO BID 30 Days Qty: 60 0RF ondansetron 4 mg tablet,disintegrating 4 mg PO Q8H PRN (Reason: nausea and vomiting) Qty: 20 0RF omeprazole 20 mg tablet,delayed release (DR/EC) 20 mg PO DAILY Qty: 14 0RF hydroxyzine HCl 50 mg tablet 50 mg PO QID PRN (Reason: anxiety)
[2022-10-08] MEDS: Potassium Chloride Packet 20 MEQ PACKET 40 MEQ PO (05:18)
[2022-10-08 06:20] VITALS: BP 137/75; PULSE 55; RESP 18; TEMP 36.8; O2SAT 96
--- NOTE | 2022-10-08 06:28 | PC.NURSE ---
pt was calm and cooperative during the discharge process
== END 2022-10-08 06:28 | disposition home or self-care (01) ==
PROVIDERS: Emergency Provider Emergency Medicine
DX: R07.89 Other chest pain (principal); R10.13 Epigastric pain; E87.6 Hypokalemia; R11.2 Nausea with vomiting, unspecified; F11.20 Opioid dependence, uncomplicated; F17.210 Nicotine dependence, cigarettes, uncomplicated; Z79.899 Other long term (current) drug therapy
CPT/HCPCS: 36415; 71045; 80053; 80307; 82248; 83690; 83735; 84484; 85025; 85610; 93005; 99283; 99284

== ENCOUNTER 2022-10-08 21:43 | Emergency (ER) | payer MEDICAID, SELFPAY ==
[2022-10-08 21:47] VITALS: BP 100/58; BP 111/70; PULSE 69; PULSE 70; RESP 19; TEMP 37.1; O2SAT 96; O2SAT 99; BMI 26.7
--- NOTE | 2022-10-08 21:56 | ED.CHESTPAIN ---
HPI - Chest Pain General Chief Complaint: Chest Pain Stated Complaint: cp n/v Time Seen by Provider: 10/08/22 21:56 Source: patient Mode of arrival: ambulatory Limitations: no limitations History of Present Illness HPI narrative: Patient with chronic chest pain and abdominal pain been here multiple times was seen here earlier in the a.m. discharged at 04:00 comes back as having right-sided chest pain and diffuse abdominal pain with nausea and vomiting vomited about 3 times patient's previous workup was negative Related Data Home Medications Medication Instructions Recorded Confirmed hydroxyzine HCl 50 mg tablet 50 mg PO QID PRN anxiety 03/03/22 09/23/22 amitriptyline 100 mg tablet 125 mg PO BEDTIME 07/11/22 09/23/22 atenolol 25 mg tablet 25 mg PO DAILY 07/11/22 09/23/22 cholecalciferol (vitamin D3) 25 25 mcg PO DAILY 07/11/22 09/23/22 mcg (1,000 unit) tablet (Vitamin D3) clonidine HCl 0.2 mg tablet 0.2 mg PO BID 07/11/22 09/23/22 melatonin 10 mg tablet 10 mg PO BEDTIME 07/11/22 09/23/22 metformin 500 mg tablet,extended 500 mg PO DAILY 07/11/22 09/23/22 release 24 hr terazosin 5 mg capsule 5 mg PO BEDTIME 07/11/22 09/23/22 Vitamin D (with calcium) 1 tab PO DAILY 09/23/22 09/23/22 mirtazapine 30 mg tablet 30 mg PO BEDTIME 09/23/22 09/23/22 zolpidem 10 mg tablet 12.5 mg PO BEDTIME PRN Insomnia 09/23/22 09/23/22 Previous Rx's Medication Instructions Recorded buprenorphine 2 mg-naloxone 0.5 mg 1 film buccal DAILY #6 ea 07/18/22 sublingual film (Suboxone) bethanechol chloride 50 mg tablet 50 mg PO BID 90 days #180 tabs 08/22/22 divalproex 250 mg tablet,delayed 750 mg PO BID 30 days #180 tabs 09/29/22 release docusate sodium 100 mg capsule 100 mg PO BID 30 days #60 caps 09/29/22 nicotine 14 mg/24 hr daily 14 mg transdermal DAILY 28 days 09/29/22 transdermal patch #28 ea olanzapine 10 mg tablet 20 mg PO BEDTIME 30 days #60 tabs 09/29/22 omeprazole 20 mg tablet,delayed 20 mg PO DAILY #14 tabs 10/01/22 release ondansetron 4 mg disintegrating 4 mg PO Q8H PRN nausea and 10/01/22 tablet vomiting #20 tabs ondansetron 4 mg disintegrating 4 mg PO Q6-8H PRN nausea and 10/08/22 tablet vomiting #10 tabs Allergies Allergy/AdvReac Type Severity Reaction Status Date / Time trazodone [TRAZODONE] Allergy Severe FACIAL Verified 10/08/22 21:52 SWELLING, swelling cat dander [CATS] Allergy Intermediate FACIAL Verified 10/08/22 21:52 ITCHING doxepin [DOXEPIN] Allergy Intermediate WEIGHT Verified 10/08/22 21:52 GAIN/LEG SWELLING Iodinated Contrast Media Allergy Intermediate ITCHING Verified 10/08/22 21:52 [IV DYE, IODINE CONTAINING CONTRAST ] nitroglycerin [NITROGLYCERIN] Allergy Unknown UNKNOWN Verified 10/08/22 21:52 tramadol [TRAMADOL] Allergy Unknown UNKNOWN, Verified 10/08/22 21:52 dry mouth ibuprofen [From MOTRIN] AdvReac Intermediate GI UPSET Verified 10/08/22 21:52 quetiapine [From SEROQUEL] AdvReac Intermediate FACIAL Verified 10/08/22 21:52 SWELLING aspirin [ASPIRIN] AdvReac Mild Stomach Verified 10/08/22 21:52 Upset Ibuprofen Allergy Unknown stomach Uncoded 10/08/22 21:52 ache IV contrast Allergy Unknown Unknown Uncoded 10/08/22 21:52 Motrin Allergy Unknown stomach Uncoded 10/08/22 21:52 pain Review of Systems Review of Systems: Yes all other systems are reviewed and are negative PMFSH Past Medical History Medical History Alcohol dependence Anxiety Chest pain Derangement of symphysis pubis Dysphagia GERD (gastroesophageal reflux disease) Low TSH level Major depressive disorder, recurrent severe without psychotic features Opioid abuse Weight loss Surgical History H/O umbilical hernia repair History of colonoscopy History of cystoscopy Family History Family History Father HTN (hypertension) Diabetes Mother HTN (hypertension) Stroke Alzheimer disease Heart disease Social History Social History Household Members: None Housing: Apartment Do you presently have visiting nurse or other home services: Yes Alcohol intake: current Alcohol intake frequency: does not drink Patient Tobacco Use Status: Current everyday Tobacco user Tobacco use type: Cigarette Cigarette Packs Per Day: 1 Cigarettes Per Day: 20.0 Years Smoked: 9 e-Cigarette/Vaping Use: Never Used Second Hand Smoke Exposure: Yes Substance Use Type: Heroin and Opiates Advance Directives: Yes Advance Directives on File: Yes Advance Directives Date on File: 02/14/20 service: No Current occupational status: unemployed and disabled Sexual orientation: Straight/Heterosexual Physical Exam Vital Signs: Vital Signs: Last Vital Signs Temp 98.0 F 10/08/22 22:27 Pulse 75 10/08/22 22:27 Resp 16 10/08/22 22:27 BP 97/58 L 10/08/22 22:27 Pulse Ox 97 10/08/22 22:27 O2 Del Method Room Air 10/08/22 22:27 BMI result Body Mass Index 26.7 Appearance: Alert. Oriented X3. No acute distress. Eyes: PERRLA, No Nystagmus ENT: Pharynx normal. Oral Mucosa moist Neck: Normal inspection. Neck supple. CVS: Normal heart rate and rhythm. Pulses normal. Right chest wall tenderness Respiratory: No respiratory distress. Equal air entry bilateral, no wheezing/rales/rhonchi Abdomen: Soft and mild upper abdominal discomfort no rebound tenderness or guarding, Bowel sounds are present, no mass palpable, no CVA tenderness Skin: Skin warm and dry. Normal skin color. Normal skin turgor. Extremities: No lower extremity edema. No calf tenderness Neuro: Oriented X 3. No motor deficit. Medical Decision Making Medical Decision Making MDM Narrative: Patient opiate dependence on Suboxone with multiple complaints with multiple ED admissions and visits recent labs were normal EKG now discharge patient home on Zofran Independent Interpretation I performed an independent interpretation of an: EKG Interpretation: Normal sinus rhythm heart rate 67 beats per minute normal intervals normal axis LVH, no acute ischemia Discharge Plan Discharge Clinical Impression: Atypical chest pain, Acute nausea with nonbilious vomiting Patient Disposition: Home, Self-Care Instructions: Acute Nausea and Vomiting (ED), Noncardiac Chest Pain (ED) Additional Instructions: Take nausea medication as prescribed Continue Suboxone and other medications Follow with PCP Prescriptions: New ondansetron 4 mg tablet,disintegrating 4 mg PO Q6-8H PRN (Reason: nausea and vomiting) Qty: 10 0RF No Action bethanechol chloride 50 mg tablet 50 mg PO BID 90 Days Qty: 180 1RF metformin 500 mg Tablet Extended Release 24 Hr 500 mg PO DAILY atenolol 25 mg Tablet 25 mg PO DAILY amitriptyline 100 mg Tablet 125 mg PO BEDTIME cholecalciferol (vitamin D3) [Vitamin D3] 25 mcg (1,000 unit) Tablet 25 mcg PO DAILY clonidine HCl 0.2 mg Tablet 0.2 mg PO BID melatonin 10 mg Tablet 10 mg PO BEDTIME terazosin 5 mg Capsule 5 mg PO BEDTIME buprenorphine-naloxone [Suboxone] 2-0.5 mg film 1 film buccal DAILY Qty: 6 0RF Rx Instructions: place 1 strip/tab under (each) side of tongue mirtazapine 30 mg tablet 30 mg PO BEDTIME zolpidem 10 mg tablet 12.5 mg PO BEDTIME PRN (Reason: Insomnia) Vitamin D (with calcium) 1 tab PO DAILY Rx Instructions: unknown dose, OTC nicotine 14 mg/24 hr Patch 24 Hour 14 mg transdermal DAILY 28 Days Qty: 28 0RF divalproex 250 mg Tablet,Delayed Release (Dr/Ec) 750 mg PO BID 30 Days Qty: 180 0RF olanzapine 10 mg Tablet 20 mg PO BEDTIME 30 Days Qty: 60 0RF docusate sodium 100 mg Capsule 100 mg PO BID 30 Days Qty: 60 0RF ondansetron 4 mg tablet,disintegrating 4 mg PO Q8H PRN (Reason: nausea and vomiting) Qty: 20 0RF omeprazole 20 mg tablet,delayed release (DR/EC) 20 mg PO DAILY Qty: 14 0RF hydroxyzine HCl 50 mg tablet 50 mg PO QID PRN (Reason: anxiety)
--- NOTE | 2022-10-08 22:05 | PC.NURSE ---
Per ED attending Hernando, no labs to be drawn on pt at this time.
[2022-10-08 22:27] VITALS: BP 97/58; PULSE 75; RESP 16; TEMP 36.7; O2SAT 97
[2022-10-08 23:31] VITALS: BP 93/54; PULSE 60; RESP 16; TEMP 36.7; O2SAT 97
== END 2022-10-09 00:14 | disposition home or self-care (01) ==
PROVIDERS: Emergency Provider Internal Medicine
DX: R07.89 Other chest pain (principal); R11.2 Nausea with vomiting, unspecified; F11.20 Opioid dependence, uncomplicated; F17.210 Nicotine dependence, cigarettes, uncomplicated; Z79.899 Other long term (current) drug therapy
CPT/HCPCS: 93005; 96374; 96375; 99284; J1170; J2405

== ENCOUNTER 2022-10-15 23:25 | Emergency (ER) | payer MEDICAID, SELFPAY ==
[2022-10-15 23:49] VITALS: BP 122/64; PULSE 72; O2SAT 98
== END 2022-10-15 23:52 | disposition left against medical advice (07) ==
PROVIDERS: Emergency Provider Emergency Medicine
DX: R07.9 Chest pain, unspecified (principal); R10.9 Unspecified abdominal pain

== ENCOUNTER 2022-10-17 19:58 | Emergency (ER) | payer MEDICAID, SELFPAY ==
--- NOTE | 2022-10-17 | ECG_ITS ---
Test Reason : CHEST PAIN Blood Pressure : / mmHG Vent. Rate : 059 BPM Atrial Rate : 059 BPM P-R Int : 134 ms QRS Dur : 086 ms QT Int : 432 ms P-R-T Axes : 017 006 022 degrees QTc Int : 427 ms Sinus bradycardia Minimal voltage criteria for LVH, may be normal variant ( R in aVL ) Borderline ECG When compared with ECG of 08-OCT-2022 21:50, Fusion complexes are no longer Present Referred By: Generic ED Physician Electronically Signed By:MARIE LOCKWOOD MD
--- NOTE | ~2022-10-17 | XR_ITS ---
EXAMINATION: XR CHEST CLINICAL INFORMATION: Chest pain. COMPARISON: Chest radiograph 10/08/2022. TECHNIQUE: Frontal view of the chest was obtained. FINDINGS: Low lung volumes with bronchovascular crowding. No focal airspace opacity, pleural effusion or pneumothorax. Normal appearance of the cardiomediastinal silhouette. No acute osseous findings. XR/XR chest 1V IMPRESSION: No acute cardiopulmonary findings.
[2022-10-17 20:13] VITALS: BP 115/69; BP 126/76; PULSE 64; PULSE 77; RESP 18; TEMP 36.4; O2SAT 98; O2SAT 99; BMI 27.1
[2022-10-17 20:19] VITALS: PULSE 64
[2022-10-17 20:34] LABS: MANUAL DIFF FLAG NO
[2022-10-17 20:37] LABS: Basophils Percent Auto 0.4 % (0-2); Eosinophils Absolute Auto 0.1 X10*3/uL (0.0-0.4); Eosinophils Percent Auto 1.4 % (0-4); Hematocrit 31.8 % (42.0-52.0); Hemoglobin 10.4 g/dl (14.0-18.0); Imm Gran Abs Auto 0.02 X10*3/uL (0.00-0.03); Imm Gran Pct Auto 0.4 % (0.0-0.4); Lymphocytes Absolute Auto 1.5 X10*3/uL (1.2-4.9); Lymphocytes Percent Auto 29.6 % (20-40); Mean Corpuscular HGB Conc 32.7 g/dl (31.0-36.0); Mean Corpuscular Hemoglobin 28.7 pg (27.0-33.0); Mean Corpuscular Volume 87.8 fL (80.0-98.0); Monocytes Absolute Auto 0.7 X10*3/uL (0.1-1.2); Monocytes Percent Auto 13.1 % (2-11); Neutrophils Absolute Auto 2.8 x10*3/uL (2.0-8.3); Neutrophils Percent Auto 55.1 % (45-73); Platelet Count 217 X10*3/uL (160-400); Red Blood Count 3.62 X10*6/uL (4.60-5.80); Red Cell Distribution Width 16.1 % (11.0-16.0); White Blood Count 5.1 X10*3/uL (4.8-10.8)
--- NOTE | 2022-10-17 20:37 | PC.NURSE ---
Assumed care of pt. pt di sandoval, no acute distress apparent at this time. Pt assessed as documented. Protocol orders placed. pending provider assessment.
[2022-10-17 20:50] LABS: Alanine Aminotransferase 16 U/L (0-40); Albumin Level 3.3 g/dL (3.5-5.0); Alkaline Phosphatase 64 U/L (39-117); Anion Gap 12 (12-20); Aspartate Amino Transferase 18 U/L (5-37); Bilirubin Direct < 0.2 mg/dL (0.0-0.5); Bilirubin Total 0.2 mg/dL (0.0-1.0); Blood Urea Nitrogen 10 mg/dL (9-16); Calcium 8.5 mg/dL (8.4-10.2); Carbon Dioxide 26 mmol/L (22-29); Chloride 102 mmol/L (96-108); Creatinine Clr Calc Pharmacy 86.4; Estimated Glomerular Filt Rate > 60; Glucose Random 89 mg/dL (60-115); Lipase 10 U/L (8-78); Potassium 3.7 mmol/L (3.3-5.1); Sodium 136 mmol/L (135-145)
[2022-10-17 21:23] LABS: Troponin-I High Sensitivity < 2.7 ng/L (<3.5-35.0)
[2022-10-17 22:00] VITALS: BP 117/78; PULSE 60; RESP 18; O2SAT 98
--- NOTE | 2022-10-17 22:55 | ED.CHESTPAIN ---
HPI - Chest Pain General Chief Complaint: Chest Pain Stated Complaint: abd, chest pains, per ems Time Seen by Provider: 10/17/22 22:43 Source: patient, RN notes reviewed, old records reviewed and technical support consultant Mode of arrival: EMS Limitations: language barrier History of Present Illness HPI narrative: 52-year-old male presents for evaluation of chest pain. Patient has a history of hypothyroidism, chronic chest pain, GERD, major depressive episode, bipolar disorder, schizoaffective disorder, alcohol use disorder, opioid use disorder He reports chest pain for the last week. He reports that he was admitted to [facility] last week and discharged on 10/12/2022 At that visit he had esophageal achalasia that he reports with dilated by his GI doctor He reports vomiting twice today Patient reports his pain is 10/10 but sleeping at the time of my evaluation Related Data Home Medications Medication Instructions Recorded Confirmed hydroxyzine HCl 50 mg tablet 50 mg PO QID PRN anxiety 03/03/22 09/23/22 amitriptyline 100 mg tablet 125 mg PO BEDTIME 07/11/22 09/23/22 atenolol 25 mg tablet 25 mg PO DAILY 07/11/22 09/23/22 cholecalciferol (vitamin D3) 25 25 mcg PO DAILY 07/11/22 09/23/22 mcg (1,000 unit) tablet (Vitamin D3) clonidine HCl 0.2 mg tablet 0.2 mg PO BID 07/11/22 09/23/22 melatonin 10 mg tablet 10 mg PO BEDTIME 07/11/22 09/23/22 metformin 500 mg tablet,extended 500 mg PO DAILY 07/11/22 09/23/22 release 24 hr terazosin 5 mg capsule 5 mg PO BEDTIME 07/11/22 09/23/22 Vitamin D (with calcium) 1 tab PO DAILY 09/23/22 09/23/22 mirtazapine 30 mg tablet 30 mg PO BEDTIME 09/23/22 09/23/22 zolpidem 10 mg tablet 12.5 mg PO BEDTIME PRN Insomnia 09/23/22 09/23/22 Previous Rx's Medication Instructions Recorded buprenorphine 2 mg-naloxone 0.5 mg 1 film buccal DAILY #6 ea 07/18/22 sublingual film (Suboxone) bethanechol chloride 50 mg tablet 50 mg PO BID 90 days #180 tabs 08/22/22 divalproex 250 mg tablet,delayed 750 mg PO BID 30 days #180 tabs 09/29/22 release docusate sodium 100 mg capsule 100 mg PO BID 30 days #60 caps 09/29/22 nicotine 14 mg/24 hr daily 14 mg transdermal DAILY 28 days 09/29/22 transdermal patch #28 ea olanzapine 10 mg tablet 20 mg PO BEDTIME 30 days #60 tabs 09/29/22 omeprazole 20 mg tablet,delayed 20 mg PO DAILY #14 tabs 10/01/22 release ondansetron 4 mg disintegrating 4 mg PO Q8H PRN nausea and 10/01/22 tablet vomiting #20 tabs ondansetron 4 mg disintegrating 4 mg PO Q6-8H PRN nausea and 10/08/22 tablet vomiting #10 tabs ondansetron 4 mg disintegrating 4 mg PO Q8H PRN nausea and 10/18/22 tablet vomiting #20 tabs Allergies Allergy/AdvReac Type Severity Reaction Status Date / Time trazodone [TRAZODONE] Allergy Severe FACIAL Verified 10/08/22 21:52 SWELLING, swelling cat dander [CATS] Allergy Intermediate FACIAL Verified 10/08/22 21:52 ITCHING doxepin [DOXEPIN] Allergy Intermediate WEIGHT Verified 10/08/22 21:52 GAIN/LEG SWELLING Iodinated Contrast Media Allergy Intermediate ITCHING Verified 10/08/22 21:52 [IV DYE, IODINE CONTAINING CONTRAST ] nitroglycerin [NITROGLYCERIN] Allergy Unknown UNKNOWN Verified 10/08/22 21:52 tramadol [TRAMADOL] Allergy Unknown UNKNOWN, Verified 10/08/22 21:52 dry mouth ibuprofen [From MOTRIN] AdvReac Intermediate GI UPSET Verified 10/08/22 21:52 quetiapine [From SEROQUEL] AdvReac Intermediate FACIAL Verified 10/08/22 21:52 SWELLING aspirin [ASPIRIN] AdvReac Mild Stomach Verified 10/08/22 21:52 Upset Ibuprofen Allergy Unknown stomach Uncoded 10/08/22 21:52 ache IV contrast Allergy Unknown Unknown Uncoded 10/08/22 21:52 Motrin Allergy Unknown stomach Uncoded 10/08/22 21:52 pain Review of Systems Constitutional: Constitutional: Reports as per HPI, Denies chills, Denies fatigue, Denies fever(s) and Denies headache(s) ENT: Denies headache(s) Cardiovascular: Cardiovascular: Denies dyspnea Respiratory: Respiratory: Denies cough and Denies dyspnea Gastrointestinal: Gastrointestinal: Denies constipation and Denies vomiting Genitourinary: Genitourinary: Denies difficulty urinating and Denies dysuria Neurologic: Denies headache(s) and Denies focal weakness Endocrine: Endocrine: Denies fatigue PMFSH Past Medical History Medical History Alcohol dependence Anxiety Chest pain Derangement of symphysis pubis Dysphagia GERD (gastroesophageal reflux disease) Low TSH level Major depressive disorder, recurrent severe without psychotic features Opioid abuse Weight loss Surgical History H/O umbilical hernia repair History of colonoscopy History of cystoscopy Family History Family History Father HTN (hypertension) Diabetes Mother HTN (hypertension) Stroke Alzheimer disease Heart disease Social History Social History Household Members: None Housing: Apartment Do you presently have visiting nurse or other home services: Yes Alcohol intake: never Patient Tobacco Use Status: Current everyday Tobacco user Tobacco use type: Cigarette Cigarette Packs Per Day: 1 Cigarettes Per Day: 20.0 Years Smoked: 9 Smoked in Last 30 Days: Yes e-Cigarette/Vaping Use: Never Used Second Hand Smoke Exposure: Yes Use of substances other than those prescribed or required for medical reasons: No Substance Use Type: Heroin and Opiates Advance Directives: Yes Advance Directives on File: Yes Advance Directives Date on File: 02/14/20 service: No Current occupational status: unemployed and disabled Sexual orientation: Straight/Heterosexual Physical Exam Vital Signs: Vital Signs: Last Vital Signs Temp 98.1 F 10/17/22 23:28 Pulse 60 10/17/22 23:28 Resp 18 10/17/22 23:28 BP 129/85 10/17/22 23:28 Pulse Ox 100 10/17/22 23:28 O2 Del Method Room Air 10/17/22 23:28 BMI result Body Mass Index 27.1 Const: General: healthy appearing, comfortable, no acute distress, alert and awake Nutritional Appearance: well nourished Orientation/consciousness: patient oriented x3 HEENT: Head: Yes normocephalic and Yes atraumatic Eyes: Eyelids: Yes eyelids normal Conjunctivae: conjunctivae normal Sclerae: sclerae normal Corneas: corneas normal Pupils: Equal, round and reactive pupils present EOM: EOMs intact bilaterally Neck: Neck: Yes full ROM Resp: Effort & Inspection: normal respiratory effort, able to speak in complete sentences, no audible wheezes and not labored Auscultation: clear to auscultation bilaterally Cardio: Rate: regular rate Rhythm: regular rhythm GI: Inspection: No distended Palpation (GI): Soft to palpation, not firm, nontender, no guarding and not rigid Auscultation: normoactive bowel sounds Skin: General skin exam: no rashes or lesions noted and elasticity normal Neuro: General: patient oriented x3 Cranial nerves: Yes Equal, round and reactive pupils present and Yes Bilaterally intact EOM present Cognition (Neuro): normal cognition Medications Administered Discontinued Medications Generic Name Dose Route Start Last Admin Trade Name Freq PRN Reason Stop Dose Admin Morphine Sulfate 2 mg 10/17/22 22:57 10/17/22 23:10 Morphine Sulfate 2 Mg/Ml Cartridge IVPUSH 10/17/22 22:58 2 mg ONCE ONE Administration Protocol Ondansetron HCl 4 mg 10/17/22 22:57 10/17/22 23:10 Ondansetron Hcl 4 Mg/2 Ml Vial IVPUSH 10/17/22 22:58 4 mg ONCE ONE Administration Pantoprazole Sodium 40 mg 10/17/22 22:57 10/17/22 23:10 Pantoprazole Sodium 40 Mg/10 Ml Vial IVPUSH 10/17/22 22:58 40 mg ONCE ONE Administration Medical Decision Making Medical Decision Making [facility] Narrative: 52-year-old male past medical history significant for chronic chest pain, GERD, opioid use disorder presents for evaluation of chest pain. His EKG is sinus bradycardia. His EKG does not show any ischemic changes. His troponin is negative. His symptoms are likely related to GERD. We treated his symptoms with morphine and Zofran. Unfortunately do not have any viscous lidocaine for a GI cocktail. The patient is tolerating p.o., he is stable for discharge at this time. Differential Diagnosis Chest pain GERD Esophageal achalasia Peptic ulcer disease ACS Admission/Observation Consideration of admission/observation: Escalation of care including admission/observation considered Patient's chest pain worker was negative for ACS Lab Data MDM Lab Attestation statement: I reviewed the patient's lab results. (Mild chronic anemia, electrolytes the normal limits, troponin less than 2.7) 10/17/22 20:25 10/17/22 20:25 Labs: Lab Results 10/17/22 10/17/22 10/17/22 Range/Units 20:25 20:25 20:44 WBC 5.1 (4.8-10.8) X10*3/uL RBC 3.62 L (4.60-5.80) X10*6/uL Hgb 10.4 L (14.0-18.0) g/dl Hct 31.8 L (42.0-52.0) % MCV 87.8 (80.0-98.0) fL MCH 28.7 (27.0-33.0) pg MCHC 32.7 (31.0-36.0) g/dl RDW 16.1 H (11.0-16.0) % Plt Count 217 (160-400) X10*3/uL MPV 9.0 L (9.4-12.4) fL Immature Gran % (Auto) 0.4 (0.0-0.4) % Neut % (Auto) 55.1 (45-73) % Lymph % (Auto) 29.6 (20-40) % [place] % (Auto) 13.1 H (2-11) % Eos % (Auto) 1.4 (0-4) % Baso % (Auto) 0.4 (0-2) % Lymph # (Auto) 1.5 (1.2-4.9) X10*3/uL [place] # (Auto) 0.7 (0.1-1.2) X10*3/uL Eos # (Auto) 0.1 (0.0-0.4) X10*3/uL Baso # (Auto) 0.0 (0.0-0.2) X10*3/uL Abs Immat Gran (auto) 0.02 (0.00-0.03) X10*3/uL Absolute Neuts (auto) 2.8 (2.0-8.3) x10*3/uL Absolute Nucleated RBC 0.000 (0.0-0.012) X10*3/uL Nucleated RBC % (auto) 0.0 (0.0-0.2) /100WBC Sodium 136 (135-145) mmol/L Potassium 3.7 (3.3-5.1) mmol/L Chloride 102 (96-108) mmol/L Carbon Dioxide 26 (22-29) mmol/L Anion Gap 12 (12-20) BUN 10 (9-16) mg/dL Creatinine 0.85 (0.5-1.4) mg/dL Estim Creat Clear Calc 86.4 Estimated GFR > 60 Random Glucose 89 (60-115) mg/dL Calcium 8.5 (8.4-10.2) mg/dL Total Bilirubin 0.2 (0.0-1.0) mg/dL Direct Bilirubin < 0.2 (0.0-0.5) mg/dL AST 18 (5-37) U/L ALT 16 (0-40) U/L Alkaline Phosphatase 64 (39-117) U/L Troponin I High Sens < 2.7 (<3.5-35.0) ng/L Total Protein 6.0 L (6.5-8.0) g/dL Albumin 3.3 L (3.5-5.0) g/dL Lipase 10 (8-78) U/L Independent Interpretation I performed an independent interpretation of an: EKG (Sinus bradycardia with a rate of 59 beats per minute. No ST segment or T-wave changes) and Plain X-Ray (No focal infiltrates) Discharge Plan Discharge Clinical Impression: Chest pain, Chronic GERD Patient Disposition: Home, Self-Care Instructions: Gastroesophageal Reflux Disease (ED) Additional Instructions: Your workup in the emergency department today was reassuring. Your EKG did not show any ischemic changes. Your blood work was also reassuring. Follow-up with your primary doctor and your GI doctor. You may use Zofran as needed for any further nausea or vomiting Prescriptions: New ondansetron 4 mg tablet,disintegrating 4 mg PO Q8H PRN (Reason: nausea and vomiting) Qty: 20 0RF No Action bethanechol chloride 50 mg tablet 50 mg PO BID 90 Days Qty: 180 1RF ondansetron 4 mg tablet,disintegrating 4 mg PO Q6-8H PRN (Reason: nausea and vomiting) Qty: 10 0RF metformin 500 mg Tablet Extended Release 24 Hr 500 mg PO DAILY atenolol 25 mg Tablet 25 mg PO DAILY amitriptyline 100 mg Tablet 125 mg PO BEDTIME cholecalciferol (vitamin D3) [Vitamin D3] 25 mcg (1,000 unit) Tablet 25 mcg PO DAILY clonidine HCl 0.2 mg Tablet 0.2 mg PO BID melatonin 10 mg Tablet 10 mg PO BEDTIME terazosin 5 mg Capsule 5 mg PO BEDTIME buprenorphine-naloxone [Suboxone] 2-0.5 mg film 1 film buccal DAILY Qty: 6 0RF Rx Instructions: place 1 strip/tab under (each) side of tongue mirtazapine 30 mg tablet 30 mg PO BEDTIME zolpidem 10 mg tablet 12.5 mg PO BEDTIME PRN (Reason: Insomnia) Vitamin D (with calcium) 1 tab PO DAILY Rx Instructions: unknown dose, OTC nicotine 14 mg/24 hr Patch 24 Hour 14 mg transdermal DAILY 28 Days Qty: 28 0RF divalproex 250 mg Tablet,Delayed Release (Dr/Ec) 750 mg PO BID 30 Days Qty: 180 0RF olanzapine 10 mg Tablet 20 mg PO BEDTIME 30 Days Qty: 60 0RF docusate sodium 100 mg Capsule 100 mg PO BID 30 Days Qty: 60 0RF ondansetron 4 mg tablet,disintegrating 4 mg PO Q8H PRN (Reason: nausea and vomiting) Qty: 20 0RF omeprazole 20 mg tablet,delayed release (DR/EC) 20 mg PO DAILY Qty: 14 0RF hydroxyzine HCl 50 mg tablet 50 mg PO QID PRN (Reason: anxiety)
[2022-10-17] MEDS: Pantoprazole Sodium 40 MG/10 ML VIAL IVPUSH (23:10)
[2022-10-17] MEDS: ondansetron HCL 4 MG/2 ML VIAL IVPUSH (23:10)
[2022-10-17] MEDS: Morphine Sulfate 2 MG/ML CARTRIDGE IVPUSH (23:10)
[2022-10-17 23:28] VITALS: BP 129/85; PULSE 60; RESP 18; TEMP 36.7; O2SAT 100
== END 2022-10-18 00:59 | disposition home or self-care (01) ==
PROVIDERS: Emergency Provider Emergency Medicine
DX: R07.89 Other chest pain (principal); K21.9 Gastro-esophageal reflux disease without esophagitis; Z79.899 Other long term (current) drug therapy
CPT/HCPCS: 36415; 71045; 80053; 82248; 83690; 84484; 85025; 93005; 96374; 96375; 99284; 99285; J2270; J2405

== ENCOUNTER → 2022-10-17 20:59 | Outpatient (BNV) | payer MEDICAID, SELFPAY | PROVIDERS: Emergency Provider Emergency Medicine; Visit Provider Internal Medicine Cardiovascular Disease | DX: R07.9 Chest pain, unspecified (principal) | CPT/HCPCS: 93010 ==

== ENCOUNTER 2022-10-18 22:20 | Emergency (ER) | payer MEDICAID, SELFPAY ==
[2022-10-18 22:32] VITALS: BP 107/65; BP 116/76; PULSE 71; PULSE 79; RESP 18; TEMP 36.9; O2SAT 98; O2SAT 99; BMI 27.5
[2022-10-18 22:43] VITALS: BP 107/65; PULSE 69; RESP 18; TEMP 36.9; O2SAT 97
--- NOTE | 2022-10-18 22:44 | PC.NURSE ---
Assumed care of patient at 1034. Patient STEPHANIE with complaints of body aches, N/V, anorexia. States he thinks he has COVID. Patient is alert and oriented and in no apparent distress, skin pink warm and dry, vss.
--- NOTE | 2022-10-18 23:22 | ECG_ITS ---
Test Reason : abd pain Blood Pressure : / mmHG Vent. Rate : 072 BPM Atrial Rate : 072 BPM P-R Int : 150 ms QRS Dur : 082 ms QT Int : 420 ms P-R-T Axes : 029 013 034 degrees QTc Int : 459 ms Normal sinus rhythm Normal ECG When compared with ECG of 17-OCT-2022 20:59, No significant change was found Referred By: Meri Hoyos Electronically Signed By:MARIE LOCKWOOD MD
[2022-10-18 23:52] LABS: Basophils Percent Auto 0.4 % (0-2); Eosinophils Absolute Auto 0.1 X10*3/uL (0.0-0.4); Eosinophils Percent Auto 2.8 % (0-4); Hematocrit 34.3 % (42.0-52.0); Hemoglobin 11.4 g/dl (14.0-18.0); Imm Gran Abs Auto 0.02 X10*3/uL (0.00-0.03); Imm Gran Pct Auto 0.4 % (0.0-0.4); Lymphocytes Absolute Auto 2.1 X10*3/uL (1.2-4.9); Lymphocytes Percent Auto 40.7 % (20-40); MANUAL DIFF FLAG NO; Mean Corpuscular HGB Conc 33.2 g/dl (31.0-36.0); Mean Corpuscular Volume 87.3 fL (80.0-98.0); Mean Platelet Volume 9.8 fL (9.4-12.4); Monocytes Absolute Auto 0.6 X10*3/uL (0.1-1.2); Monocytes Percent Auto 10.8 % (2-11); Neutrophils Absolute Auto 2.3 x10*3/uL (2.0-8.3); Neutrophils Percent Auto 44.9 % (45-73); Platelet Count 221 X10*3/uL (160-400); Red Blood Count 3.93 X10*6/uL (4.60-5.80); Red Cell Distribution Width 15.9 % (11.0-16.0); White Blood Count 5.1 X10*3/uL (4.8-10.8)
[2022-10-19 00:08] LABS: Alanine Aminotransferase 16 U/L (0-40); Albumin Level 3.5 g/dL (3.5-5.0); Alkaline Phosphatase 68 U/L (39-117); Anion Gap 16 (12-20); Aspartate Amino Transferase 20 U/L (5-37); Bilirubin Direct < 0.2 mg/dL (0.0-0.5); Bilirubin Total 0.2 mg/dL (0.0-1.0); Blood Urea Nitrogen 9 mg/dL (9-16); Calcium 8.4 mg/dL (8.4-10.2); Carbon Dioxide 24 mmol/L (22-29); Chloride 99 mmol/L (96-108); Creatinine Clr Calc Pharmacy 90.7; Estimated Glomerular Filt Rate > 60; Glucose Random 82 mg/dL (60-115); Lipase 9 U/L (8-78); Potassium 3.5 mmol/L (3.3-5.1); Sodium 135 mmol/L (135-145); Total Protein 6.5 g/dL (6.5-8.0)
[2022-10-19 00:09] LABS: COVID-19 Test Negative (Negative); IDNOW Serial# BCCEAD1C
[2022-10-19 00:15] LABS: Troponin-I High Sensitivity < 2.7 ng/L (<3.5-35.0)
[2022-10-19 00:18] LABS: Appearance Urine Clear; Color Urine Yellow; Glucose Urine UA Negative (Negative); Leukocyte Esterase Urine Negative (Negative); Nitrite Urine Negative (Negative); PH 5.5 (5.0-9.0); Specific Gravity - Urine <= 1.005 (1.005-1.025); Urine Blood Negative (Negative); Urine Ketones Negative (Negative); Urine Protein Negative (Neg-Trace)
--- NOTE | 2022-10-19 00:39 | PC.NURSE ---
Patient refusing medication and imaging. Attempted to leave ED was encouraged to return to get discharge paperwork. Patient willingly returned to room. Will notify
--- NOTE | 2022-10-19 00:45 | ED_ITS ---
HPI - General Adult General Chief complaint: General Medical Stated complaint: NAUSEA VOMITING Time Seen by Provider: 10/19/22 00:32 Source: patient Mode of arrival: EMS Limitations: no limitations History of Present Illness HPI narrative: Patient comes emergency room complaining of nausea vomiting, body aches, patient thinks that he may have COVID. Denies chest pain or shortness of breath. Related Data Home Medications Medication Instructions Recorded Confirmed hydroxyzine HCl 50 mg tablet 50 mg PO QID PRN anxiety 03/03/22 09/23/22 amitriptyline 100 mg tablet 125 mg PO BEDTIME 07/11/22 09/23/22 atenolol 25 mg tablet 25 mg PO DAILY 07/11/22 09/23/22 cholecalciferol (vitamin D3) 25 25 mcg PO DAILY 07/11/22 09/23/22 mcg (1,000 unit) tablet (Vitamin D3) clonidine HCl 0.2 mg tablet 0.2 mg PO BID 07/11/22 09/23/22 melatonin 10 mg tablet 10 mg PO BEDTIME 07/11/22 09/23/22 metformin 500 mg tablet,extended 500 mg PO DAILY 07/11/22 09/23/22 release 24 hr terazosin 5 mg capsule 5 mg PO BEDTIME 07/11/22 09/23/22 Vitamin D (with calcium) 1 tab PO DAILY 09/23/22 09/23/22 mirtazapine 30 mg tablet 30 mg PO BEDTIME 09/23/22 09/23/22 zolpidem 10 mg tablet 12.5 mg PO BEDTIME PRN Insomnia 09/23/22 09/23/22 Previous Rx's Medication Instructions Recorded buprenorphine 2 mg-naloxone 0.5 mg 1 film buccal DAILY #6 ea 07/18/22 sublingual film (Suboxone) bethanechol chloride 50 mg tablet 50 mg PO BID 90 days #180 tabs 08/22/22 divalproex 250 mg tablet,delayed 750 mg PO BID 30 days #180 tabs 09/29/22 release docusate sodium 100 mg capsule 100 mg PO BID 30 days #60 caps 09/29/22 nicotine 14 mg/24 hr daily 14 mg transdermal DAILY 28 days 09/29/22 transdermal patch #28 ea olanzapine 10 mg tablet 20 mg PO BEDTIME 30 days #60 tabs 09/29/22 omeprazole 20 mg tablet,delayed 20 mg PO DAILY #14 tabs 10/01/22 release ondansetron 4 mg disintegrating 4 mg PO Q8H PRN nausea and 10/01/22 tablet vomiting #20 tabs ondansetron 4 mg disintegrating 4 mg PO Q6-8H PRN nausea and 10/08/22 tablet vomiting #10 tabs ondansetron 4 mg disintegrating 4 mg PO Q8H PRN nausea and 10/18/22 tablet vomiting #20 tabs Allergies Allergy/AdvReac Type Severity Reaction Status Date / Time trazodone [TRAZODONE] Allergy Severe FACIAL Verified 10/08/22 21:52 SWELLING, swelling cat dander [CATS] Allergy Intermediate FACIAL Verified 10/08/22 21:52 ITCHING doxepin [DOXEPIN] Allergy Intermediate WEIGHT Verified 10/08/22 21:52 GAIN/LEG SWELLING Iodinated Contrast Media Allergy Intermediate ITCHING Verified 10/08/22 21:52 [IV DYE, IODINE CONTAINING CONTRAST ] nitroglycerin [NITROGLYCERIN] Allergy Unknown UNKNOWN Verified 10/08/22 21:52 tramadol [TRAMADOL] Allergy Unknown UNKNOWN, Verified 10/08/22 21:52 dry mouth ibuprofen [From MOTRIN] AdvReac Intermediate GI UPSET Verified 10/08/22 21:52 quetiapine [From SEROQUEL] AdvReac Intermediate FACIAL Verified 10/08/22 21:52 SWELLING aspirin [ASPIRIN] AdvReac Mild Stomach Verified 10/08/22 21:52 Upset Ibuprofen Allergy Unknown stomach Uncoded 10/08/22 21:52 ache IV contrast Allergy Unknown Unknown Uncoded 10/08/22 21:52 Motrin Allergy Unknown stomach Uncoded 10/08/22 21:52 pain Review of Systems Review of Systems: Constitutional : No Weight loss, No Fever, No Chills, No Night Sweats, No Fatigue, complaining of body aches ENT/Mouth : No Hearing loss, No Ear Pain, No Nasal Congestion, No Sinus Pain, No Hoarseness, No sore throat, No Rhinorrhea, No Swallowing Difficulty Eyes: No Eye Pain, No Swelling, No Redness, No Foreign Body, No Discharge, No Vision Changes Cardiovascular : No Chest Pain, No SOB, No Dyspnea on Exertion, No Orthopnea, No Edema, No Palpitations Respiratory : No Cough, No Sputum, No Wheezing, No Smoke Exposure, No Dyspnea Gastrointestinal : Complaining of nausea and vomiting, No Diarrhea, No Constipation, No abdominal Pain, No Hematochezia, No Melena Genitourinary : no irregular bleeding, No Dysuria, No Urinary Frequency, No Hematuria, No Urinary Incontinence, No Urgency, No Flank Pain, No Urinary Flow Changes, No Hesitancy Musculoskeletal : No joint pain, No Myalgias, No Joint Swelling Skin : No Skin Lesions, No rash Neuro : No Weakness, No Numbness, No Paresthesias, No Loss of Consciousness, No Dizziness, No Headache Psych : No Anxiety/Panic, No Depression, No SI/HI/AH/VH, No Social Issues, Heme/Lymph: No Bruising, No Bleeding,No Lymphadenopathy Endocrine : No Polyuria, No Polydipsia, No Temperature Intolerance [facility] Past Medical History Medical History Alcohol dependence Anxiety Chest pain Derangement of symphysis pubis Dysphagia GERD (gastroesophageal reflux disease) Low TSH level Major depressive disorder, recurrent severe without psychotic features Opioid abuse Weight loss Surgical History H/O umbilical hernia repair History of colonoscopy History of cystoscopy Family History Family History Father HTN (hypertension) Diabetes Mother HTN (hypertension) Stroke Alzheimer disease Heart disease Social History Social History Household Members: None Housing: Apartment Do you presently have visiting nurse or other home services: Yes Alcohol intake: former Patient Tobacco Use Status: Current everyday Tobacco user Tobacco use type: Cigarette Cigarette Packs Per Day: 1 Cigarettes Per Day: 20.0 Years Smoked: 9 Smoked in Last 30 Days: No e-Cigarette/Vaping Use: Never Used Second Hand Smoke Exposure: Yes Use of substances other than those prescribed or required for medical reasons: No Substance Use Type: Heroin and Opiates Advance Directives: Yes Advance Directives on File: Yes Advance Directives Date on File: 02/14/20 service: No Current occupational status: unemployed and disabled Sexual orientation: Straight/Heterosexual Physical Exam ED Vital Signs: Vital Signs - 24 hr 10/18/22 22:32 10/18/22 22:43 Temperature 98.4 F 98.4 F Pulse Rate 71 69 Respiratory Rate 18 18 Blood Pressure 107/65 107/65 Pulse Oximetry 99 97 Oxygen Delivery Method Room Air Room Air BMI result Body Mass Index 27.5 Const Other: Appearance: Alert. Oriented X3. No acute distress. Eyes: Pupils equal, round and reactive to light. ENT: Pharynx normal. Neck: Normal inspection. Neck supple. No lymph nodes noted. No crepitus CVS: Normal heart rate and rhythm. Pulses normal. Normal S1 and S2 Respiratory: No respiratory distress. Breath sounds normal. No Wheezing. No rales Abdomen: Soft and nontender. No rigidity. No distention. Skin: Skin warm and dry. Normal skin color. Normal skin turgor. Extremities: No lower extremity edema. No Lacerations. No Rash Neuro: Oriented X 3. No motor deficit. No sensory deficit. Moving all extremities. No slurred speech. CN 2 through 12 grossly intact Psych: calm, cooperative, normal affect Medical Decision Making Medical Decision Making [facility] Narrative: -all of patient's labs are normal, interpretation of labs: hematology and chemistry are unremarkable. -patient walked to the bathroom with normal gait, unassisted, patient clinically sober -patient has not had any episodes of nausea or vomiting. -patient requesting morphine. -when I discussed with the patient that morphine is not indicated at this time. A few minutes later patient was found on the floor. Several tacks were around the room. They did not hear that the patient fell. Patient was on the floor. -a cervical spine was applied to the patient's neck. Patient requested morphine. Patient was offered Tylenol. Patient got upset, took his collar off and requested to be discharged -patient doing against medical advise Differential Diagnosis Differential Diagnoses: The differential diagnosis associated with the presentation includes (Nausea, vomiting, gastroenteritis, viral syndrome) Lab Data [facility] Lab Attestation statement: I reviewed the patient's lab results. 10/18/22 23:46 10/18/22 23:46 Labs: Lab Results 10/18/22 10/18/22 10/18/22 Range/Units 23:45 23:46 23:46 WBC 5.1 (4.8-10.8) X10*3/uL RBC 3.93 L (4.60-5.80) X10*6/uL Hgb 11.4 L (14.0-18.0) g/dl Hct 34.3 L (42.0-52.0) % MCV 87.3 (80.0-98.0) fL MCH 29.0 (27.0-33.0) pg MCHC 33.2 (31.0-36.0) g/dl RDW 15.9 (11.0-16.0) % Plt Count 221 (160-400) X10*3/uL MPV 9.8 (9.4-12.4) fL Immature Gran % (Auto) 0.4 (0.0-0.4) % Neut % (Auto) 44.9 L (45-73) % Lymph % (Auto) 40.7 H (20-40) % [place] % (Auto) 10.8 (2-11) % Eos % (Auto) 2.8 (0-4) % Baso % (Auto) 0.4 (0-2) % Lymph # (Auto) 2.1 (1.2-4.9) X10*3/uL [place] # (Auto) 0.6 (0.1-1.2) X10*3/uL Eos # (Auto) 0.1 (0.0-0.4) X10*3/uL Baso # (Auto) 0.0 (0.0-0.2) X10*3/uL Abs Immat Gran (auto) 0.02 (0.00-0.03) X10*3/uL Absolute Neuts (auto) 2.3 (2.0-8.3) x10*3/uL Absolute Nucleated RBC 0.000 (0.0-0.012) X10*3/uL Nucleated RBC % (auto) 0.0 (0.0-0.2) /100WBC Sodium 135 (135-145) mmol/L Potassium 3.5 (3.3-5.1) mmol/L Chloride 99 (96-108) mmol/L Carbon Dioxide 24 (22-29) mmol/L Anion Gap 16 (12-20) BUN 9 (9-16) mg/dL Creatinine 0.88 (0.5-1.4) mg/dL Estim Creat Clear Calc 90.7 Estimated GFR > 60 Random Glucose 82 (60-115) mg/dL Calcium 8.4 (8.4-10.2) mg/dL Total Bilirubin 0.2 (0.0-1.0) mg/dL Direct Bilirubin < 0.2 (0.0-0.5) mg/dL AST 20 (5-37) U/L ALT 16 (0-40) U/L Alkaline Phosphatase 68 (39-117) U/L Troponin I High Sens (<3.5-35.0) ng/L Total Protein 6.5 (6.5-8.0) g/dL Albumin 3.5 (3.5-5.0) g/dL Lipase 9 (8-78) U/L Urine Color Urine Appearance Urine pH (5.0-9.0) Ur Specific [place] (1.005-1.025) Urine Protein (Neg-Trace) mg/dL Urine Glucose (UA) (Negative) mg/dL Urine Ketones (Negative) mg/dL Urine Blood (Negative) Urine Nitrite (Negative) Ur Leukocyte Esterase (Negative) COVID-19 (ERIN) Negative (Negative) COVID-19 Clin Com See Note 10/18/22 10/19/22 Range/Units 23:46 00:11 WBC (4.8-10.8) X10*3/uL RBC (4.60-5.80) X10*6/uL Hgb (14.0-18.0) g/dl Hct (42.0-52.0) % MCV (80.0-98.0) fL MCH (27.0-33.0) pg MCHC (31.0-36.0) g/dl RDW (11.0-16.0) % Plt Count (160-400) X10*3/uL MPV (9.4-12.4) fL Immature Gran % (Auto) (0.0-0.4) % Neut % (Auto) (45-73) % Lymph % (Auto) (20-40) % [place] % (Auto) (2-11) % Eos % (Auto) (0-4) % Baso % (Auto) (0-2) % Lymph # (Auto) (1.2-4.9) X10*3/uL [place] # (Auto) (0.1-1.2) X10*3/uL Eos # (Auto) (0.0-0.4) X10*3/uL Baso # (Auto) (0.0-0.2) X10*3/uL Abs Immat Gran (auto) (0.00-0.03) X10*3/uL Absolute Neuts (auto) (2.0-8.3) x10*3/uL Absolute Nucleated RBC (0.0-0.012) X10*3/uL Nucleated RBC % (auto) (0.0-0.2) /100WBC Sodium (135-145) mmol/L Potassium (3.3-5.1) mmol/L Chloride (96-108) mmol/L Carbon Dioxide (22-29) mmol/L Anion Gap (12-20) BUN (9-16) mg/dL Creatinine (0.5-1.4) mg/dL Estim Creat Clear Calc Estimated GFR Random Glucose (60-115) mg/dL Calcium (8.4-10.2) mg/dL Total Bilirubin (0.0-1.0) mg/dL Direct Bilirubin (0.0-0.5) mg/dL AST (5-37) U/L ALT (0-40) U/L Alkaline Phosphatase (39-117) U/L Troponin I High Sens < 2.7 (<3.5-35.0) ng/L Total Protein (6.5-8.0) g/dL Albumin (3.5-5.0) g/dL Lipase (8-78) U/L Urine Color Yellow Urine Appearance Clear Urine pH 5.5 (5.0-9.0) Ur Specific [place] <= 1.005 (1.005-1.025) Urine Protein Negative (Neg-Trace) mg/dL Urine Glucose (UA) Negative (Negative) mg/dL Urine Ketones Negative (Negative) mg/dL Urine Blood Negative (Negative) Urine Nitrite Negative (Negative) Ur Leukocyte Esterase Negative (Negative) COVID-19 (ERIN) (Negative) COVID-19 Clin Com Discharge Plan Discharge Clinical Impression: Nausea & vomiting, Body aches, Fall Patient Disposition: Left Against Medical Advice Instructions: Acute Nausea and Vomiting (ED) Additional Instructions: Left against medical advice. Your refused to get a CT scan of your head and cervical spine. Please follow-up with your primary care physician tomorrow. If you have any worsening or new symptoms, please return to the emergency room or call 911 Prescriptions: No Action bethanechol chloride 50 mg tablet 50 mg PO BID 90 Days Qty: 180 1RF ondansetron 4 mg tablet,disintegrating 4 mg PO Q6-8H PRN (Reason: nausea and vomiting) Qty: 10 0RF metformin 500 mg Tablet Extended Release 24 Hr 500 mg PO DAILY atenolol 25 mg Tablet 25 mg PO DAILY amitriptyline 100 mg Tablet 125 mg PO BEDTIME cholecalciferol (vitamin D3) [Vitamin D3] 25 mcg (1,000 unit) Tablet 25 mcg PO DAILY clonidine HCl 0.2 mg Tablet 0.2 mg PO BID melatonin 10 mg Tablet 10 mg PO BEDTIME terazosin 5 mg Capsule 5 mg PO BEDTIME buprenorphine-naloxone [Suboxone] 2-0.5 mg film 1 film buccal DAILY Qty: 6 0RF Rx Instructions: place 1 strip/tab under (each) side of tongue mirtazapine 30 mg tablet 30 mg PO BEDTIME zolpidem 10 mg tablet 12.5 mg PO BEDTIME PRN (Reason: Insomnia) Vitamin D (with calcium) 1 tab PO DAILY Rx Instructions: unknown dose, OTC nicotine 14 mg/24 hr Patch 24 Hour 14 mg transdermal DAILY 28 Days Qty: 28 0RF divalproex 250 mg Tablet,Delayed Release (Dr/Ec) 750 mg PO BID 30 Days Qty: 180 0RF olanzapine 10 mg Tablet 20 mg PO BEDTIME 30 Days Qty: 60 0RF docusate sodium 100 mg Capsule 100 mg PO BID 30 Days Qty: 60 0RF ondansetron 4 mg tablet,disintegrating 4 mg PO Q8H PRN (Reason: nausea and vomiting) Qty: 20 0RF omeprazole 20 mg tablet,delayed release (DR/EC) 20 mg PO DAILY Qty: 14 0RF ondansetron 4 mg tablet,disintegrating 4 mg PO Q8H PRN (Reason: nausea and vomiting) Qty: 20 0RF hydroxyzine HCl 50 mg tablet 50 mg PO QID PRN (Reason: anxiety)
== END 2022-10-19 00:53 | disposition left against medical advice (07) ==
PROVIDERS: Emergency Provider Emergency Medicine; PCP Internal Medicine
DX: R11.2 Nausea with vomiting, unspecified (principal); M79.10 Myalgia, unspecified site; Z91.81 History of falling; Z20.822 Contact with and (suspected) exposure to COVID-19; F11.20 Opioid dependence, uncomplicated; F17.210 Nicotine dependence, cigarettes, uncomplicated; Z79.899 Other long term (current) drug therapy
CPT/HCPCS: 36415; 80048; 80076; 81003; 83690; 84484; 85025; 87635; 93005; 99283; 99284

== ENCOUNTER → 2022-10-18 23:22 | Outpatient (BNV) | payer MEDICAID, SELFPAY | PROVIDERS: Emergency Provider Emergency Medicine; PCP Internal Medicine; Visit Provider Internal Medicine Cardiovascular Disease | DX: R10.9 Unspecified abdominal pain (principal) | CPT/HCPCS: 93010 ==

== ENCOUNTER 2022-11-07 18:02 | Emergency (ER) | payer MEDICAID, SELFPAY ==
--- NOTE | ~2022-11-07 | CT_ITS ---
EXAMINATION: CT HEAD WITHOUT CONTRAST CLINICAL INFORMATION: Altered mental status COMPARISON: CT head 02/18/2021 TECHNIQUE: Contiguous axial imaging was performed from the skull base to vertex without intravenous administration of contrast. Coronal and sagittal reformatted images are performed at the CT scanner. [This CT examination was performed using dose optimization techniques as appropriate, variously including the following: *Automated exposure control *Adjustment of mA and/or kV according to patient size (this includes techniques or standardized protocols for targeted exams where dose is matched to indication/reason for exam; i.e. extremities or head) *Use of iterative reconstruction technique] DLP: 597 mGy-cm. FINDINGS: There is no evidence of acute intracranial hemorrhage or territorial infarction. No abnormal mass-effect or midline shift is seen. Queen to white matter differentiation is well preserved. No extra-axial fluid collections are identified. The ventricles are normal in size. There is no abnormal attenuation within the brain parenchyma. There is no osseous abnormality. The mastoid air cells and visualized portions of the paranasal sinuses are well-aerated. CT/CT head/brain wo IV con IMPRESSION: No acute intracranial pathology.
--- NOTE | ~2022-11-07 | XR_ITS ---
EXAMINATION: XR CHEST CLINICAL INFORMATION: Shortness of breath COMPARISON: Chest x-ray 10/17/2022 TECHNIQUE: Frontal portable view of the chest was obtained. 12:38 AM FINDINGS: No significant abnormality is noted involving the heart, lungs, mediastinum, bony thorax or soft tissues. XR/XR chest 1V IMPRESSION: Unremarkable examination.
[2022-11-07 18:07] VITALS: BP 140/80; PULSE 65; O2SAT 95
[2022-11-07 18:23] VITALS: BP 105/52; PULSE 65; RESP 18; TEMP 36.7; O2SAT 98; BMI 26.3
--- NOTE | 2022-11-07 18:24 | ED.GENADULT ---
HPI - General Adult General Chief complaint: General Medical Stated complaint: Wants covid test/ fever/Body aches Time Seen by Provider: 11/07/22 20:36 Source: patient Mode of arrival: ambulatory Limitations: no limitations History of Present Illness HPI narrative: 52-year-old male history of GERD, chronic constipation, major depression, bipolar disorder, anemia, rectal dysfunction, alcohol use disorder, schizoaffective disorder, opiate use disorder presenting to the emergency department for evaluation of fatigue, malaise, nausea, vomiting, diarrhea for the past few days, requesting COVID test. Initially complained of headache however reports he does not have 1 at this time headache was diffuse in nature without visual disturbances or dizziness. Patient reports he took an Ambien while in the waiting room and that is why he is tired, difficult to arouse. Denies SI or HI. Denies fevers, chills, nausea, vomiting, abdominal pain, headache, vision changes, hematemesis, melena, dizziness and weakness Related Data Home Medications Medication Instructions Recorded Confirmed hydroxyzine HCl 50 mg tablet 50 mg PO QID PRN anxiety 03/03/22 09/23/22 amitriptyline 100 mg tablet 125 mg PO BEDTIME 07/11/22 09/23/22 atenolol 25 mg tablet 25 mg PO DAILY 07/11/22 09/23/22 cholecalciferol (vitamin D3) 25 25 mcg PO DAILY 07/11/22 09/23/22 mcg (1,000 unit) tablet (Vitamin D3) clonidine HCl 0.2 mg tablet 0.2 mg PO BID 07/11/22 09/23/22 melatonin 10 mg tablet 10 mg PO BEDTIME 07/11/22 09/23/22 metformin 500 mg tablet,extended 500 mg PO DAILY 07/11/22 09/23/22 release 24 hr terazosin 5 mg capsule 5 mg PO BEDTIME 07/11/22 09/23/22 Vitamin D (with calcium) 1 tab PO DAILY 09/23/22 09/23/22 mirtazapine 30 mg tablet 30 mg PO BEDTIME 09/23/22 09/23/22 zolpidem 10 mg tablet 12.5 mg PO BEDTIME PRN Insomnia 09/23/22 09/23/22 Previous Rx's Medication Instructions Recorded buprenorphine 2 mg-naloxone 0.5 mg 1 film buccal DAILY #6 ea 07/18/22 sublingual film (Suboxone) bethanechol chloride 50 mg tablet 50 mg PO BID 90 days #180 tabs 08/22/22 divalproex 250 mg tablet,delayed 750 mg PO BID 30 days #180 tabs 09/29/22 release docusate sodium 100 mg capsule 100 mg PO BID 30 days #60 caps 09/29/22 nicotine 14 mg/24 hr daily 14 mg transdermal DAILY 28 days 09/29/22 transdermal patch #28 ea olanzapine 10 mg tablet 20 mg PO BEDTIME 30 days #60 tabs 09/29/22 omeprazole 20 mg tablet,delayed 20 mg PO DAILY #14 tabs 10/01/22 release ondansetron 4 mg disintegrating 4 mg PO Q8H PRN nausea and 10/01/22 tablet vomiting #20 tabs ondansetron 4 mg disintegrating 4 mg PO Q6-8H PRN nausea and 10/08/22 tablet vomiting #10 tabs ondansetron 4 mg disintegrating 4 mg PO Q8H PRN nausea and 10/18/22 tablet vomiting #20 tabs Allergies Allergy/AdvReac Type Severity Reaction Status Date / Time trazodone [TRAZODONE] Allergy Severe FACIAL Verified 10/08/22 21:52 SWELLING, swelling cat dander [CATS] Allergy Intermediate FACIAL Verified 10/08/22 21:52 ITCHING doxepin [DOXEPIN] Allergy Intermediate WEIGHT Verified 10/08/22 21:52 GAIN/LEG SWELLING Iodinated Contrast Media Allergy Intermediate ITCHING Verified 10/08/22 21:52 [IV DYE, IODINE CONTAINING CONTRAST ] nitroglycerin [NITROGLYCERIN] Allergy Unknown UNKNOWN Verified 10/08/22 21:52 tramadol [TRAMADOL] Allergy Unknown UNKNOWN, Verified 10/08/22 21:52 dry mouth ibuprofen [From MOTRIN] AdvReac Intermediate GI UPSET Verified 10/08/22 21:52 quetiapine [From SEROQUEL] AdvReac Intermediate FACIAL Verified 10/08/22 21:52 SWELLING aspirin [ASPIRIN] AdvReac Mild Stomach Verified 10/08/22 21:52 Upset Ibuprofen Allergy Unknown stomach Uncoded 10/08/22 21:52 ache IV contrast Allergy Unknown Unknown Uncoded 10/08/22 21:52 Motrin Allergy Unknown stomach Uncoded 10/08/22 21:52 pain Review of Systems Review of Systems: Constitutional : No Weight loss, No Fever, No Chills, + Fatigue, + Malaise ENT/Mouth : No sore throat, No Rhinorrhea Eyes: No Eye Pain, No Swelling, No Redness Cardiovascular : No Chest Pain, No SOB, No Dyspnea on Exertion, No Orthopnea, No Edema, No Palpitations Respiratory : No Cough, No Sputum, No Wheezing Gastrointestinal : + Nausea, + Vomiting, + Diarrhea, No Constipation, No abdominal Pain, No Hematochezia, No Melena Genitourinary : No Dysuria, No Urinary Frequency, No Hematuria, Musculoskeletal : No joint pain, No Myalgias, No Joint Swelling Skin : No Skin Lesions, No rash Neuro : No Weakness, No Numbness, No Dizziness, No Headache Psych : No Anxiety/Panic, No Depression All other systems reviewed and are negative Yes all other systems are reviewed and are negative [facility] Past Medical History Attestation statement: The following information was validated with the patient. Source: old records reviewed and nursing notes reviewed Medical History Alcohol dependence Anxiety Chest pain Derangement of symphysis pubis Dysphagia GERD (gastroesophageal reflux disease) Low TSH level Major depressive disorder, recurrent severe without psychotic features Opioid abuse Weight loss Surgical History H/O umbilical hernia repair History of colonoscopy History of cystoscopy Family History Family History Father HTN (hypertension) Diabetes Mother HTN (hypertension) Stroke Alzheimer disease Heart disease Social History Social History Household Members: None Housing: Apartment Do you presently have visiting nurse or other home services: Yes Alcohol intake: former Patient Tobacco Use Status: Current everyday Tobacco user Tobacco use type: Cigarette Cigarette Packs Per Day: 1 Cigarettes Per Day: 20.0 Years Smoked: 9 e-Cigarette/Vaping Use: Never Used Second Hand Smoke Exposure: Yes Substance Use Type: Heroin and Opiates Advance Directives: Yes Advance Directives on File: Yes Advance Directives Date on File: 02/14/20 service: No Current occupational status: unemployed and disabled Sexual orientation: Straight/Heterosexual Physical Exam ED Vital Signs: Vital Signs - 24 hr 11/07/22 18:23 11/07/22 20:29 11/07/22 22:41 Temperature 98.1 F 98.4 F 97.5 F Pulse Rate 65 58 59 Respiratory Rate 18 17 12 Blood Pressure 105/52 L 117/73 121/68 Pulse Oximetry 98 95 95 Oxygen Delivery Method Room Air Room Air Room Air 11/08/22 00:43 Temperature Pulse Rate 52 Respiratory Rate 22 H Blood Pressure 116/69 Pulse Oximetry 96 Oxygen Delivery Method Room Air BMI result Body Mass Index 26.3 vss Appearance: Alert.? Oriented X3.? No acute distress.? Patient sleepy/drowsy however arousable to verbal stimuli Head: Normocephalic, atraumatic, no step-offs or deformities Eyes: Pupils equal, round and reactive to light.? CVS: Normal heart rate and rhythm.? Pulses normal.? Respiratory: No respiratory distress.? Breath sounds normal.? Abdomen: Soft and nontender.? Skin: Skin warm and dry.? Normal skin color.? Normal skin turgor.? Extremities: No lower extremity edema.? No calf ttp. 5/5 strength to bilateral upper and lower extremities Neuro: Oriented X 3.? No motor deficit.? No sensory deficit. CN 2-12 intact Course Course Course Narrative: This is a rapid medical exam: Additional HPI, ROS, PE not included below will be deferred to primary provider. Patient is a 52-year-old male complaining of generalized body aches, nausea, vomiting, and diarrhea for 2 days. Also reports headache. Requesting testing for Covid. Plan: Covid/flu, labs, UA Reevaluation(s) Reevaluation #1: CBC with a baseline normocytic anemia. Chemistry unremarkable. COVID negative. Flu negative. Trop, EKG, Head CT, CXR, UA, KEITA pending Time: 00:23 Reevaluation #2: Head CT unremarkable. Chest x-ray, troponin, EKG, urine and urine toxicology pending Time: 00:48 Reevaluation #3: I had my attending evaluate patient who has seen patient multiple times in the past, similar presentation, patient reports taking ambient while in the waiting room therefore he feels even more tired. Falling asleep, difficult to arouse. Patient has had no episodes of nausea, vomiting or diarrhea while in the department Time: 00:59 Additional Reevaluation(s): I went to go re-evaluate patient he tells me he is feeling much better and his symptoms are gone. He tells me he would like to be evaluated by the crisis team for depression, would like to go to respite. No suicidal or homicidal ideation. Trop negative nonischemic EKG. CXR unremarkable. UA, KEITA pending Patient will be placed into observation to allow more time to be evaluated by the behavioral health team. At time observation started patient common cooperative no acute distress will continue to monitor Medical Decision Making Medical Decision Making [facility] Narrative: 2300 52-year-old male presents with flu-like symptoms requesting COVID test. Physical exam benign patient sleepy but wakes to verbal stimuli A&O X4. Concerns for URI versus viral illness. Versus COVID. Unlikely intracranial hemorrhage, stroke, posterior stroke, ACS, PE. Patient became very sleepy while in the department this is likely secondary to patient taking Ambien while in the waiting room. No abd pain unlikely mesenteric ischemia, ischemic colitis, diverticulitis, acute abdomen, obstruction Plan at this time labs, imaging. Patient requested to go home will discharge patient home clinically stable been here multiple times for multiple reasons Differential Diagnosis Differential Diagnoses: The differential diagnosis associated with the presentation includes Concerns for URI versus viral illness. Versus COVID. Unlikely intracranial hemorrhage, stroke, posterior stroke, ACS, PE. Patient became very sleepy while in the department this is likely secondary to patient taking Ambien while in the waiting room. No abd pain unlikely mesenteric ischemia, ischemic colitis, diverticulitis, acute abdomen, obstruction Admission/Observation Consideration of admission/observation: Escalation of care including admission/observation considered not indicated Lab Data [facility] Lab Attestation statement: I reviewed the patient's lab results. 11/07/22 Unknown 11/07/22 Unknown Labs: Lab Results 11/07/22 11/07/22 11/07/22 Range/Units Unknown Unknown Unknown WBC 10.4 (4.8-10.8) X10*3/uL RBC 3.71 L (4.60-5.80) X10*6/uL Hgb 10.6 L (14.0-18.0) g/dl Hct 32.6 L (42.0-52.0) % MCV 87.9 (80.0-98.0) fL MCH 28.6 (27.0-33.0) pg MCHC 32.5 (31.0-36.0) g/dl RDW 16.2 H (11.0-16.0) % Plt Count 241 (160-400) X10*3/uL MPV 9.9 (9.4-12.4) fL Immature Gran % (Auto) 0.6 H (0.0-0.4) % Neut % (Auto) 66.6 (45-73) % Lymph % (Auto) 23.1 (20-40) % Delta % (Auto) 6.8 (2-11) % Eos % (Auto) 2.5 (0-4) % Baso % (Auto) 0.4 (0-2) % Lymph # (Auto) 2.4 (1.2-4.9) X10*3/uL Delta # (Auto) 0.7 (0.1-1.2) X10*3/uL Eos # (Auto) 0.3 (0.0-0.4) X10*3/uL Baso # (Auto) 0.0 (0.0-0.2) X10*3/uL Abs Immat Gran (auto) 0.06 H (0.00-0.03) X10*3/uL Absolute Neuts (auto) 6.9 (2.0-8.3) x10*3/uL Absolute Nucleated RBC 0.000 (0.0-0.012) X10*3/uL Nucleated RBC % (auto) 0.0 (0.0-0.2) /100WBC Sodium 138 (135-145) mmol/L Potassium 4.0 (3.3-5.1) mmol/L Chloride 105 (96-108) mmol/L Carbon Dioxide 22 (22-29) mmol/L Anion Gap 15 (12-20) BUN 8 L (9-16) mg/dL Creatinine 0.84 (0.5-1.4) mg/dL Estim Creat Clear Calc 87.4 Estimated GFR > 60 Random Glucose 114 (60-115) mg/dL Calcium 9.2 D (8.4-10.2) mg/dL Magnesium 2.1 (1.6-2.6) mg/dL Total Bilirubin 0.3 (0.0-1.0) mg/dL AST 29 (5-37) U/L ALT 17 (0-40) U/L Alkaline Phosphatase 75 (39-117) U/L Troponin I High Sens (<3.5-35.0) ng/L Total Protein 7.3 (6.5-8.0) g/dL Albumin 3.8 (3.5-5.0) g/dL Lipase 5 L (8-78) U/L Urine Color Urine Appearance Urine pH (5.0-9.0) Ur Specific [place] (1.005-1.025) Urine Protein (Neg-Trace) mg/dL Urine Glucose (UA) (Negative) mg/dL Urine Ketones (Negative) mg/dL Urine Blood (Negative) Urine Nitrite (Negative) Ur Leukocyte Esterase (Negative) Urine Opiates Screen (Not Detect) Urine Fentanyl Screen (Not Detect) Ur Barbiturates Screen (Not Detect) Ur Phencyclidine Scrn (Not Detect) Ur Amphetamines Screen (Not Detect) U Benzodiazepines Scrn (Not Detect) Urine Cocaine Screen (Not Detect) U Marijuana (THC) Screen (Not Detect) COVID-19 (ERIN) (Negative) COVID-19 Clin Com Influenza Type A (TOMI) Negative (Negative) Influenza Type B (TOMI) Negative (Negative) Influenza A & B Note See Note 11/07/22 11/07/22 11/08/22 Range/Units Unknown Unknown 01:13 WBC (4.8-10.8) X10*3/uL RBC (4.60-5.80) X10*6/uL Hgb (14.0-18.0) g/dl Hct (42.0-52.0) % MCV (80.0-98.0) fL MCH (27.0-33.0) pg MCHC (31.0-36.0) g/dl RDW (11.0-16.0) % Plt Count (160-400) X10*3/uL MPV (9.4-12.4) fL Immature Gran % (Auto) (0.0-0.4) % Neut % (Auto) (45-73) % Lymph % (Auto) (20-40) % Delta % (Auto) (2-11) % Eos % (Auto) (0-4) % Baso % (Auto) (0-2) % Lymph # (Auto) (1.2-4.9) X10*3/uL Delta # (Auto) (0.1-1.2) X10*3/uL Eos # (Auto) (0.0-0.4) X10*3/uL Baso # (Auto) (0.0-0.2) X10*3/uL Abs Immat Gran (auto) (0.00-0.03) X10*3/uL Absolute Neuts (auto) (2.0-8.3) x10*3/uL Absolute Nucleated RBC (0.0-0.012) X10*3/uL Nucleated RBC % (auto) (0.0-0.2) /100WBC Sodium (135-145) mmol/L Potassium (3.3-5.1) mmol/L Chloride (96-108) mmol/L Carbon Dioxide (22-29) mmol/L Anion Gap (12-20) BUN (9-16) mg/dL Creatinine (0.5-1.4) mg/dL Estim Creat Clear Calc Estimated GFR Random Glucose (60-115) mg/dL Calcium (8.4-10.2) mg/dL Magnesium (1.6-2.6) mg/dL Total Bilirubin (0.0-1.0) mg/dL AST (5-37) U/L ALT (0-40) U/L Alkaline Phosphatase (39-117) U/L Troponin I High Sens < 2.7 (<3.5-35.0) ng/L Total Protein (6.5-8.0) g/dL Albumin (3.5-5.0) g/dL Lipase (8-78) U/L Urine Color Yellow Urine Appearance Clear Urine pH 6.0 (5.0-9.0) Ur Specific [place] 1.010 (1.005-1.025) Urine Protein Negative (Neg-Trace) mg/dL Urine Glucose (UA) Negative (Negative) mg/dL Urine Ketones Negative (Negative) mg/dL Urine Blood Negative (Negative) Urine Nitrite Negative (Negative) Ur Leukocyte Esterase Negative (Negative) Urine Opiates Screen (Not Detect) Urine Fentanyl Screen (Not Detect) Ur Barbiturates Screen (Not Detect) Ur Phencyclidine Scrn (Not Detect) Ur Amphetamines Screen (Not Detect) U Benzodiazepines Scrn (Not Detect) Urine Cocaine Screen (Not Detect) U Marijuana (THC) Screen (Not Detect) COVID-19 (ERIN) Negative (Negative) COVID-19 Clin Com See Note Influenza Type A (TOMI) (Negative) Influenza Type B (TOMI) (Negative) Influenza A & B Note 11/08/22 Range/Units 01:13 WBC (4.8-10.8) X10*3/uL RBC (4.60-5.80) X10*6/uL Hgb (14.0-18.0) g/dl Hct (42.0-52.0) % MCV (80.0-98.0) fL MCH (27.0-33.0) pg MCHC (31.0-36.0) g/dl RDW (11.0-16.0) % Plt Count (160-400) X10*3/uL MPV (9.4-12.4) fL Immature Gran % (Auto) (0.0-0.4) % Neut % (Auto) (45-73) % Lymph % (Auto) (20-40) % Delta % (Auto) (2-11) % Eos % (Auto) (0-4) % Baso % (Auto) (0-2) % Lymph # (Auto) (1.2-4.9) X10*3/uL Delta # (Auto) (0.1-1.2) X10*3/uL Eos # (Auto) (0.0-0.4) X10*3/uL Baso # (Auto) (0.0-0.2) X10*3/uL Abs Immat Gran (auto) (0.00-0.03) X10*3/uL Absolute Neuts (auto) (2.0-8.3) x10*3/uL Absolute Nucleated RBC (0.0-0.012) X10*3/uL Nucleated RBC % (auto) (0.0-0.2) /100WBC Sodium (135-145) mmol/L Potassium (3.3-5.1) mmol/L Chloride (96-108) mmol/L Carbon Dioxide (22-29) mmol/L Anion Gap (12-20) BUN (9-16) mg/dL Creatinine (0.5-1.4) mg/dL Estim Creat Clear Calc Estimated GFR Random Glucose (60-115) mg/dL Calcium (8.4-10.2) mg/dL Magnesium (1.6-2.6) mg/dL Total Bilirubin (0.0-1.0) mg/dL AST (5-37) U/L ALT (0-40) U/L Alkaline Phosphatase (39-117) U/L Troponin I High Sens (<3.5-35.0) ng/L Total Protein (6.5-8.0) g/dL Albumin (3.5-5.0) g/dL Lipase (8-78) U/L Urine Color Urine Appearance Urine pH (5.0-9.0) Ur Specific [place] (1.005-1.025) Urine Protein (Neg-Trace) mg/dL Urine Glucose (UA) (Negative) mg/dL Urine Ketones (Negative) mg/dL Urine Blood (Negative) Urine Nitrite (Negative) Ur Leukocyte Esterase (Negative) Urine Opiates Screen Not Detected (Not Detect) Urine Fentanyl Screen Not Detected (Not Detect) Ur Barbiturates Screen Not Detected (Not Detect) Ur Phencyclidine Scrn Not Detected (Not Detect) Ur Amphetamines Screen Not Detected (Not Detect) U Benzodiazepines Scrn POSITIVE H (Not Detect) Urine Cocaine Screen POSITIVE H (Not Detect) U Marijuana (THC) Screen Not Detected (Not Detect) COVID-19 (ERIN) (Negative) COVID-19 Clin Com Influenza Type A (TOMI) (Negative) Influenza Type B (TOMI) (Negative) Influenza A & B Note Independent Interpretation I performed an independent interpretation of an: EKG (ventricular rate of 52, pr normal, qrs normal, qt/qtc normal. EKG non ischemic. ), Plain X-Ray and CT Scan ( CT/CT head/brain wo IV con IMPRESSION: No acute intracranial pathology. ) Radiology Impression Discussion of test interpretation with radiology: I have reviewed the radiologist's reading. Core Measures AMI core measures followed: Yes Measure exclusions: not indicated Critical Care Time Critical Care Time Critical Care Time: No Discharge Plan Discharge Clinical Impression: Viral illness Patient Disposition: Home, Self-Care Instructions: Viral Syndrome (ED) Additional Instructions: Take your medications as prescribed. If you were prescribed antibiotics today, it is important that you take your medication to their entirety, do not skip any doses, do not finish them early. Follow-up with your primary care provider this week. Return to the emergency department with new or worsening symptoms. Such as fevers, chills, chest pain, shortness of breath, nausea, vomiting, dizziness, headache, vision changes, lethargy In case of emergency call 911 Prescriptions: No Action bethanechol chloride 50 mg tablet 50 mg PO BID 90 Days Qty: 180 1RF ondansetron 4 mg tablet,disintegrating 4 mg PO Q6-8H PRN (Reason: nausea and vomiting) Qty: 10 0RF metformin 500 mg Tablet Extended Release 24 Hr 500 mg PO DAILY atenolol 25 mg Tablet 25 mg PO DAILY amitriptyline 100 mg Tablet 125 mg PO BEDTIME cholecalciferol (vitamin D3) [Vitamin D3] 25 mcg (1,000 unit) Tablet 25 mcg PO DAILY clonidine HCl 0.2 mg Tablet 0.2 mg PO BID melatonin 10 mg Tablet 10 mg PO BEDTIME terazosin 5 mg Capsule 5 mg PO BEDTIME buprenorphine-naloxone [Suboxone] 2-0.5 mg film 1 film buccal DAILY Qty: 6 0RF Rx Instructions: place 1 strip/tab under (each) side of tongue mirtazapine 30 mg tablet 30 mg PO BEDTIME zolpidem 10 mg tablet 12.5 mg PO BEDTIME PRN (Reason: Insomnia) Vitamin D (with calcium) 1 tab PO DAILY Rx Instructions: unknown dose, OTC nicotine 14 mg/24 hr Patch 24 Hour 14 mg transdermal DAILY 28 Days Qty: 28 0RF divalproex 250 mg Tablet,Delayed Release (Dr/Ec) 750 mg PO BID 30 Days Qty: 180 0RF olanzapine 10 mg Tablet 20 mg PO BEDTIME 30 Days Qty: 60 0RF docusate sodium 100 mg Capsule 100 mg PO BID 30 Days Qty: 60 0RF ondansetron 4 mg tablet,disintegrating 4 mg PO Q8H PRN (Reason: nausea and vomiting) Qty: 20 0RF omeprazole 20 mg tablet,delayed release (DR/EC) 20 mg PO DAILY Qty: 14 0RF ondansetron 4 mg tablet,disintegrating 4 mg PO Q8H PRN (Reason: nausea and vomiting) Qty: 20 0RF hydroxyzine HCl 50 mg tablet 50 mg PO QID PRN (Reason: anxiety) Referrals: Physician,Unknown J [Primary Care Provider] -
[2022-11-07 20:26] LABS: Basophils Percent Auto 0.4 % (0-2); Eosinophils Absolute Auto 0.3 X10*3/uL (0.0-0.4); Eosinophils Percent Auto 2.5 % (0-4); Hematocrit 32.6 % (42.0-52.0); Hemoglobin 10.6 g/dl (14.0-18.0); Imm Gran Abs Auto 0.06 X10*3/uL (0.00-0.03); Imm Gran Pct Auto 0.6 % (0.0-0.4); Lymphocytes Absolute Auto 2.4 X10*3/uL (1.2-4.9); Lymphocytes Percent Auto 23.1 % (20-40); MANUAL DIFF FLAG NO; Mean Corpuscular HGB Conc 32.5 g/dl (31.0-36.0); Mean Corpuscular Hemoglobin 28.6 pg (27.0-33.0); Mean Corpuscular Volume 87.9 fL (80.0-98.0); Mean Platelet Volume 9.9 fL (9.4-12.4); Monocytes Absolute Auto 0.7 X10*3/uL (0.1-1.2); Monocytes Percent Auto 6.8 % (2-11); Neutrophils Absolute Auto 6.9 x10*3/uL (2.0-8.3); Neutrophils Percent Auto 66.6 % (45-73); Platelet Count 241 X10*3/uL (160-400); Red Blood Count 3.71 X10*6/uL (4.60-5.80); Red Cell Distribution Width 16.2 % (11.0-16.0); White Blood Count 10.4 X10*3/uL (4.8-10.8)
[2022-11-07 20:29] VITALS: BP 117/73; PULSE 58; RESP 17; TEMP 36.9; O2SAT 95
[2022-11-07 20:44] LABS: COVID-19 Test Negative (Negative); IDNOW Serial# 08D9AD1C; IDNOW Serial# 9DB6401D; Influenza A Negative (Negative); Influenza B2 Negative (Negative)
[2022-11-07 20:54] LABS: Alanine Aminotransferase 17 U/L (0-40); Albumin Level 3.8 g/dL (3.5-5.0); Alkaline Phosphatase 75 U/L (39-117); Anion Gap 15 (12-20); Aspartate Amino Transferase 29 U/L (5-37); Bilirubin Total 0.3 mg/dL (0.0-1.0); Blood Urea Nitrogen 8 mg/dL (9-16); Calcium 9.2 mg/dL (8.4-10.2); Carbon Dioxide 22 mmol/L (22-29); Chloride 105 mmol/L (96-108); Creatinine Clr Calc Pharmacy 87.4; Estimated Glomerular Filt Rate > 60; Glucose Random 114 mg/dL (60-115); Lipase 5 U/L (8-78); Magnesium 2.1 mg/dL (1.6-2.6); Sodium 138 mmol/L (135-145); Total Protein 7.3 g/dL (6.5-8.0)
--- NOTE | 2022-11-07 21:41 | PC.NURSE ---
Pt sleeping at the bedside. Breaths are even regular and unlabored. No apparent distress noted. VSS. Pending physician eval.
[2022-11-07 22:41] VITALS: BP 121/68; PULSE 59; RESP 12; TEMP 36.4; O2SAT 95
--- NOTE | 2022-11-07 22:49 | ECG_ITS ---
Test Reason : CP Blood Pressure : / mmHG Vent. Rate : 052 BPM Atrial Rate : 052 BPM P-R Int : 132 ms QRS Dur : 090 ms QT Int : 450 ms P-R-T Axes : 000 007 016 degrees QTc Int : 418 ms Sinus bradycardia Otherwise normal ECG When compared with ECG of 18-OCT-2022 23:31, No significant change was found Referred By: Lorelei Alexander Electronically Signed By:VIKI PINEDO
[2022-11-08 00:43] VITALS: BP 116/69; PULSE 52; RESP 22; O2SAT 96
[2022-11-08 01:19] LABS: Troponin-I High Sensitivity < 2.7 ng/L (<3.5-35.0)
[2022-11-08 01:25] LABS: Appearance Urine Clear; Color Urine Yellow; Glucose Urine UA Negative (Negative); Leukocyte Esterase Urine Negative (Negative); Nitrite Urine Negative (Negative); Urine Blood Negative (Negative); Urine Ketones Negative (Negative); Urine Protein Negative (Neg-Trace)
[2022-11-08 01:39] LABS: Amphetamine Screen Urine Not Detected (Not Detect); Barbiturates, Urine Not Detected (Not Detect); Benzodiazepines Screen Urine POSITIVE (Not Detect); Cannabinoid Screen Urine Not Detected (Not Detect); Cocaine Screen Urine POSITIVE (Not Detect); Fentanyl, urine Not Detected (Not Detect); Opiate Screen Urine Not Detected (Not Detect); Phencyclidine Screen Urine Not Detected (Not Detect)
== END 2022-11-08 04:47 | disposition home or self-care (01) ==
PROVIDERS: Physician Assistant; Registered Nurse Emergency; Emergency Provider Internal Medicine
DX: B34.9 Viral infection, unspecified (principal); R50.9 Fever, unspecified; Z20.822 Contact with and (suspected) exposure to COVID-19; F17.210 Nicotine dependence, cigarettes, uncomplicated; Z79.899 Other long term (current) drug therapy
CPT/HCPCS: 36415; 70450; 71045; 80053; 80307; 81003; 83690; 83735; 84484; 85025; 87502; 87635; 93005; 99284

== ENCOUNTER → 2022-11-07 22:49 | Outpatient (BNV) | payer MEDICAID, SELFPAY | PROVIDERS: Emergency Provider Internal Medicine; Visit Provider Internal Medicine | DX: R00.1 Bradycardia, unspecified (principal) | CPT/HCPCS: 93010 ==

== ENCOUNTER 2022-12-25 08:11 | Outpatient (REF) | payer MEDICAID, SELFPAY ==
[2022-12-25 12:11] LABS: Anion Gap 15 (12-20); Blood Urea Nitrogen 11 mg/dL (9-16); Calcium 10.3 mg/dL (8.4-10.2); Carbon Dioxide 28 mmol/L (22-29); Chloride 100 mmol/L (96-108); Estimated Glomerular Filt Rate > 60; Glucose Random 115 mg/dL (60-115); Potassium 4.6 mmol/L (3.3-5.1); Sodium 138 mmol/L (135-145)
[2022-12-25 12:19] LABS: Estimated Average Glucose 108 mg/dL; Hemoglobin A1c % 5.4 % (<6.0)
== END 2022-12-25 08:12 | disposition home or self-care (01) ==
LOC: HO.HHCL 08:11
PROVIDERS: Visit Provider Internal Medicine
DX: R73.03 Prediabetes (principal)
CPT/HCPCS: 36415; 80048; 83036

== ENCOUNTER 2023-01-06 13:12 | Outpatient (REF) | payer MEDICAID, SELFPAY ==
--- NOTE | ~2023-01-06 | MR_ITS ---
EXAMINATION: MR KNEE WITHOUT CONTRAST, LEFT CLINICAL INFORMATION: Unilateral primary osteoarthritis, left knee. COMPARISON: 10/11/2021 TECHNIQUE: MRI of the knee without contrast was performed using routine sequences on a high-field scanner. FINDINGS: MENISCI: Medial Meniscus: There is a complex tear of the posterior horn and body of the medial meniscus. Meniscal body is partially extruded. There is an associated horizontal tear of the meniscal body with an undersurface flap fragment situated in the meniscotibial recess. There is marked inner margin fraying at the posterior horn with a probable vertical component of the tear extending to within 1 cm of the posterior root. Lateral Meniscus: Inner margin fraying at the posterior horn. No additional tears. LIGAMENTS: Cruciate: Intact. Collateral: Edema signal around the MCL is likely reactive to the underlying meniscal abnormality. Collateral ligaments are intact. EXTENSOR MECHANISM: Intact. ARTICULAR CARTILAGE/BONE: Patellofemoral Compartment: Small marginal osteophytes. Minimal chondral surface irregularity at the central trochlea, medial trochlear facet, and medial patellar facet. Medial Compartment: [id number] osteoarthritis in the medial compartment is characterized by high-grade cartilage loss at the medial two-thirds of the tibial plateau, cortical irregularity, subcortical edema, and subcortical cystic change. At the medial femoral condyle, the articular cartilage loss is slightly more pronounced at the posterior nonweightbearing surface, associated with subcortical cystic change, articular sclerosis, and subcortical edema. Moderate-sized marginal osteophytes. Lateral Compartment: [id number] nonuniform chondral thinning at the lateral tibial plateau is most pronounced medially at the lateral tibial spine. Small marginal osteophytes. JOINT FLUID AND BURSAE: Trace effusion. No Tejada's cyst. There is a small cyst-like fluid collection in the semimembranosus - tibial collateral ligament bursa. MR/MR knee LT wo con IMPRESSION: 1. [id number] medial compartment osteoarthritis with associated complex tear of the posterior horn and body of the medial meniscus. 2. Mild osteoarthritis in the patellofemoral and lateral compartments. 3. Trace effusion.
== END 2023-01-06 13:13 | disposition home or self-care (01) ==
LOC: HO.MRI 13:12
PROVIDERS: Visit Provider Physician Assistant
DX: M17.12 Unilateral primary osteoarthritis, left knee (principal)
CPT/HCPCS: 73721

== ENCOUNTER 2023-01-06 16:59 | Emergency (ER) | payer MEDICAID, SELFPAY ==
[2023-01-06 17:28] VITALS: BP 102/62; BP 112/74; PULSE 59; PULSE 62; RESP 18; TEMP 36.8; O2SAT 97; O2SAT 98; BMI 24.8
--- NOTE | 2023-01-06 17:31 | ECG_ITS ---
Test Reason : ABDOMINAL PAIN Blood Pressure : / mmHG Vent. Rate : 061 BPM Atrial Rate : 061 BPM P-R Int : 132 ms QRS Dur : 082 ms QT Int : 410 ms P-R-T Axes : 011 -04 018 degrees QTc Int : 412 ms Normal sinus rhythm Minimal voltage criteria for LVH, may be normal variant ( R in aVL ) Borderline ECG When compared with ECG of 08-NOV-2022 00:39, No significant change was found Referred By: Lorelei Alexander Electronically Signed By:SHARITA LION
--- NOTE | 2023-01-06 17:31 | ED.GENADULT ---
HPI - General Adult General Chief complaint: Chest Pain Stated complaint: chest pain, abdominal-- L arm pit Related Data Home Medications ?Medication ?Instructions ?Recorded ?Confirmed hydroxyzine HCl 50 mg tablet 50 mg PO QID PRN anxiety 03/03/22 05/10/23 amitriptyline 100 mg tablet 125 mg PO BEDTIME 07/11/22 05/09/23 atenolol 25 mg tablet 25 mg PO DAILY 07/11/22 05/09/23 cholecalciferol (vitamin D3) 25 25 mcg PO DAILY 07/11/22 05/09/23 mcg (1,000 unit) tablet (Vitamin D3) clonidine HCl 0.2 mg tablet 0.2 mg PO TID 07/11/22 05/10/23 metformin 500 mg tablet,extended 500 mg PO DAILY 07/11/22 05/10/23 release 24 hr albuterol sulfate 90 mcg/actuation 2 puff inhalation Q4-6H PRN Dyspnea 05/09/23 05/09/23 aerosol inhaler (Ventolin HFA) zolpidem 12.5 mg tablet,extended 12.5 mg PO BEDTIME PRN insomnia 05/09/23 05/09/23 release,multiphase benztropine 0.5 mg tablet 0.5 mg PO BID 05/10/23 05/10/23 diphenhydramine HCl 25 mg tablet 50 mg PO BEDTIME 05/10/23 05/10/23 melatonin 5 mg tablet 10 mg PO BEDTIME 05/10/23 05/10/23 mirtazapine 45 mg tablet 45 mg PO BEDTIME 05/10/23 05/10/23 Previous Rx's ?Medication ?Instructions ?Recorded acetaminophen 500 mg tablet 1,000 mg (2 x 500 mg) PO QID PRN 03/23/23 pain #30 tabs acetaminophen 325 mg capsule 325 mg PO QID PRN pain 7 days #28 06/07/23 (Tylenol) caps omeprazole 20 mg capsule,delayed 20 mg PO DAILY 90 days #90 caps 06/18/23 release polyethylene glycol 3350 17 17 g PO BID PRN Constipation 90 06/18/23 gram/dose oral powder (ClearLax) days #510 grams sennosides 8.6 mg tablet (senna) 8.6 mg PO BEDTIME PRN Constipation 06/18/23 90 days #90 tabs ondansetron 4 mg disintegrating 4 mg PO Q6-8H PRN nausea and 06/20/23 tablet vomiting #10 tabs oseltamivir 75 mg capsule (Tamiflu) 75 mg PO Q12H 5 days #10 caps 07/03/23 Allergies Allergy/AdvReac Type Severity Reaction Status Date / Time trazodone [TRAZODONE] Allergy Severe FACIAL Verified 07/12/23 12:13 SWELLING, swelling cat dander [CATS] Allergy Intermediate FACIAL Verified 07/12/23 12:13 ITCHING doxepin [DOXEPIN] Allergy Intermediate WEIGHT Verified 07/12/23 12:13 GAIN/LEG SWELLING Iodinated Contrast Media Allergy Intermediate ITCHING Verified 07/12/23 12:13 [IV DYE, IODINE CONTAINING CONTRAST ] nitroglycerin [NITROGLYCERIN] Allergy Unknown UNKNOWN Verified 07/12/23 12:13 tramadol [TRAMADOL] Allergy Unknown UNKNOWN, Verified 07/12/23 12:13 dry mouth ibuprofen [From MOTRIN] AdvReac Intermediate GI UPSET Verified 07/12/23 12:13 quetiapine [From SEROQUEL] AdvReac Intermediate FACIAL Verified 07/12/23 12:13 SWELLING aspirin [ASPIRIN] AdvReac Mild Stomach Verified 07/12/23 12:13 Upset Ibuprofen Allergy Unknown stomach Uncoded 06/20/23 15:42 ache IV contrast Allergy Unknown Unknown Uncoded 06/20/23 15:42 Motrin Allergy Unknown stomach Uncoded 06/20/23 15:42 pain PMFSH Past Medical History 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 GERD (gastroesophageal reflux disease) Anxiety Surgical History History of colonoscopy History of cystoscopy H/O umbilical hernia repair Family History Family History Father HTN (hypertension) Diabetes Mother HTN (hypertension) Stroke Alzheimer disease Heart disease Social History Social History Household Members: None Housing: Apartment Do you presently have visiting nurse or other home services: Yes Alcohol intake: former Comment: 1:1 sitter Patient Tobacco Use Status: Current everyday Tobacco user Tobacco use type: Cigarette Cigarette Packs Per Day: 1 Cigarettes Per Day: 20.0 Years Smoked: 9 e-Cigarette/Vaping Use: Never Used Second Hand Smoke Exposure: Yes Substance Use Type: Heroin and Opiates Advance Directives: Yes Advance Directives on File: Yes Advance Directives Date on File: 02/14/20 service: No Current occupational status: unemployed and disabled Sexual orientation: Straight/Heterosexual Physical Exam ED Vital Signs: BMI result Body Mass Index 24.8 Course Course Course Narrative: This is an RME: Additional HPI, ROS, PE not included below will be deferred to primary provider. 52 y o male presenting for chest pain x3 days and abdominal pain x10 days with associated reported nausea and vomiting. No dizziness, shortness of breath, numbness or tingling Plan -- labs, EKG Medical Decision Making Lab Data Labs: Lab Results 01/06/23 Range/Units 17:40 Troponin I High Sens Cancelled Discharge Plan Discharge Clinical Impression: Eloped from emergency department Patient Disposition: Left W/O Completing Treatment Prescriptions: No Action sennosides [senna] 8.6 mg tablet 8.6 mg PO BEDTIME PRN (Reason: Constipation) 90 Days Qty: 90 1RF polyethylene glycol 3350 [ClearLax] 17 gram/dose powder 17 g PO BID PRN (Reason: Constipation) 90 Days Qty: 510 1RF omeprazole 20 mg capsule,delayed release(DR/EC) 20 mg PO DAILY 90 Days Qty: 90 1RF albuterol sulfate [Ventolin HFA] 90 mcg/actuation HFA aerosol inhaler 2 puff INHALATION Q4-6H PRN (Reason: Dyspnea) zolpidem 12.5 mg tablet,ext release multiphase 12.5 mg PO BEDTIME PRN (Reason: insomnia ) benztropine 0.5 mg tablet 0.5 mg PO BID diphenhydramine HCl 25 mg tablet 50 mg PO BEDTIME mirtazapine 45 mg tablet 45 mg PO BEDTIME melatonin 5 mg tablet 10 mg PO BEDTIME acetaminophen [Tylenol] 325 mg capsule 325 mg PO QID PRN (Reason: pain) 7 Days Qty: 28 0RF ondansetron 4 mg tablet,disintegrating 4 mg PO Q6-8H PRN (Reason: nausea and vomiting) Qty: 10 0RF oseltamivir [Tamiflu] 75 mg capsule 75 mg PO Q12H 5 Days Qty: 10 0RF metformin 500 mg Tablet Extended Release 24 Hr 500 mg PO DAILY atenolol 25 mg Tablet 25 mg PO DAILY amitriptyline 100 mg Tablet 125 mg PO BEDTIME cholecalciferol (vitamin D3) [Vitamin D3] 25 mcg (1,000 unit) Tablet 25 mcg PO DAILY clonidine HCl 0.2 mg Tablet 0.2 mg PO TID acetaminophen 500 mg tablet 1,000 mg PO QID PRN (Reason: pain) Qty: 30 0RF hydroxyzine HCl 50 mg tablet 50 mg PO QID PRN (Reason: anxiety) Discharge Date/Time: 01/06/23 19:15
== END 2023-01-06 19:15 | disposition left against medical advice (07) ==
PROVIDERS: Emergency Provider Emergency Medicine
DX: R07.9 Chest pain, unspecified (principal); F11.20 Opioid dependence, uncomplicated; F17.210 Nicotine dependence, cigarettes, uncomplicated; Z79.84 Long term (current) use of oral hypoglycemic drugs; Z79.899 Other long term (current) drug therapy
CPT/HCPCS: 84484; 93005; 99283

== ENCOUNTER 2023-01-11 17:18 | Emergency (ER) | payer MEDICAID, SELFPAY ==
[2023-01-11 18:37] VITALS: BP 113/56; PULSE 59; RESP 18; TEMP 36.5; O2SAT 100; BMI 27.1
--- NOTE | 2023-01-11 18:41 | ED.GENADULT ---
HPI - General Adult General Chief complaint: Abdominal Pain Stated complaint: ABD PAIN History of Present Illness HPI narrative: Patient left without completing treatment. Related Data Home Medications Medication Instructions Recorded Confirmed hydroxyzine HCl 50 mg tablet 50 mg PO QID PRN anxiety 03/03/22 09/23/22 amitriptyline 100 mg tablet 125 mg PO BEDTIME 07/11/22 09/23/22 atenolol 25 mg tablet 25 mg PO DAILY 07/11/22 09/23/22 cholecalciferol (vitamin D3) 25 25 mcg PO DAILY 07/11/22 09/23/22 mcg (1,000 unit) tablet (Vitamin D3) clonidine HCl 0.2 mg tablet 0.2 mg PO BID 07/11/22 09/23/22 melatonin 10 mg tablet 10 mg PO BEDTIME 07/11/22 09/23/22 metformin 500 mg tablet,extended 500 mg PO DAILY 07/11/22 09/23/22 release 24 hr terazosin 5 mg capsule 5 mg PO BEDTIME 07/11/22 09/23/22 Vitamin D (with calcium) 1 tab PO DAILY 09/23/22 09/23/22 mirtazapine 30 mg tablet 30 mg PO BEDTIME 09/23/22 09/23/22 zolpidem 10 mg tablet 12.5 mg PO BEDTIME PRN Insomnia 09/23/22 09/23/22 Previous Rx's Medication Instructions Recorded buprenorphine 2 mg-naloxone 0.5 mg 1 film buccal DAILY #6 ea 07/18/22 sublingual film (Suboxone) bethanechol chloride 50 mg tablet 50 mg PO BID 90 days #180 tabs 08/22/22 divalproex 250 mg tablet,delayed 750 mg (3 x 250 mg) PO BID 30 days 09/29/22 release #180 tabs docusate sodium 100 mg capsule 100 mg PO BID 30 days #60 caps 09/29/22 nicotine 14 mg/24 hr daily 14 mg transdermal DAILY 28 days 09/29/22 transdermal patch #28 ea olanzapine 10 mg tablet 20 mg (2 x 10 mg) PO BEDTIME 30 09/29/22 days #60 tabs omeprazole 20 mg tablet,delayed 20 mg PO DAILY #14 tabs 10/01/22 release ondansetron 4 mg disintegrating 4 mg PO Q8H PRN nausea and 10/01/22 tablet vomiting #20 tabs ondansetron 4 mg disintegrating 4 mg PO Q6-8H PRN nausea and 10/08/22 tablet vomiting #10 tabs ondansetron 4 mg disintegrating 4 mg PO Q8H PRN nausea and 10/18/22 tablet vomiting #20 tabs Allergies Allergy/AdvReac Type Severity Reaction Status Date / Time trazodone [TRAZODONE] Allergy Severe FACIAL Verified 01/11/23 18:46 SWELLING, swelling cat dander [CATS] Allergy Intermediate FACIAL Verified 01/11/23 18:46 ITCHING doxepin [DOXEPIN] Allergy Intermediate WEIGHT Verified 01/11/23 18:46 GAIN/LEG SWELLING Iodinated Contrast Media Allergy Intermediate ITCHING Verified 01/11/23 18:46 [IV DYE, IODINE CONTAINING CONTRAST ] nitroglycerin [NITROGLYCERIN] Allergy Unknown UNKNOWN Verified 01/11/23 18:46 tramadol [TRAMADOL] Allergy Unknown UNKNOWN, Verified 01/11/23 18:46 dry mouth ibuprofen [From MOTRIN] AdvReac Intermediate GI UPSET Verified 01/11/23 18:46 quetiapine [From SEROQUEL] AdvReac Intermediate FACIAL Verified 01/11/23 18:46 SWELLING aspirin [ASPIRIN] AdvReac Mild Stomach Verified 01/11/23 18:46 Upset Ibuprofen Allergy Unknown stomach Uncoded 10/08/22 21:52 ache IV contrast Allergy Unknown Unknown Uncoded 10/08/22 21:52 Motrin Allergy Unknown stomach Uncoded 10/08/22 21:52 pain PMFSH Past Medical History Medical History Alcohol dependence Anxiety Chest pain Derangement of symphysis pubis Dysphagia GERD (gastroesophageal reflux disease) Low TSH level Major depressive disorder, recurrent severe without psychotic features Opioid abuse Weight loss Surgical History H/O umbilical hernia repair History of colonoscopy History of cystoscopy Family History Family History Father HTN (hypertension) Diabetes Mother HTN (hypertension) Stroke Alzheimer disease Heart disease Social History Social History Household Members: None Housing: Apartment Do you presently have visiting nurse or other home services: Yes Alcohol intake: former Patient Tobacco Use Status: Current everyday Tobacco user Tobacco use type: Cigarette Cigarette Packs Per Day: 1 Cigarettes Per Day: 20.0 Years Smoked: 9 e-Cigarette/Vaping Use: Never Used Second Hand Smoke Exposure: Yes Substance Use Type: Heroin and Opiates Advance Directives: Yes Advance Directives on File: Yes Advance Directives Date on File: 02/14/20 service: No Current occupational status: unemployed and disabled Sexual orientation: Straight/Heterosexual Physical Exam ED Vital Signs: Vital Signs - 24 hr 01/11/23 18:37 Temperature 97.7 F Pulse Rate 59 Respiratory Rate 18 Blood Pressure 113/56 L Pulse Oximetry 100 Oxygen Delivery Method Room Air BMI result Body Mass Index 27.1 Course Course Course Narrative: RME: 52 yold male presents to the ED for abdominal pain for one week. labs ordered. no chest pain or SOB Discharge Plan Discharge Clinical Impression: Abdominal pain Patient Disposition: Left W/O Completing Treatment Prescriptions: No Action bethanechol chloride 50 mg tablet 50 mg PO BID 90 Days Qty: 180 1RF ondansetron 4 mg tablet,disintegrating 4 mg PO Q6-8H PRN (Reason: nausea and vomiting) Qty: 10 0RF metformin 500 mg Tablet Extended Release 24 Hr 500 mg PO DAILY atenolol 25 mg Tablet 25 mg PO DAILY amitriptyline 100 mg Tablet 125 mg PO BEDTIME cholecalciferol (vitamin D3) [Vitamin D3] 25 mcg (1,000 unit) Tablet 25 mcg PO DAILY clonidine HCl 0.2 mg Tablet 0.2 mg PO BID melatonin 10 mg Tablet 10 mg PO BEDTIME terazosin 5 mg Capsule 5 mg PO BEDTIME buprenorphine-naloxone [Suboxone] 2-0.5 mg film 1 film buccal DAILY Qty: 6 0RF Rx Instructions: place 1 strip/tab under (each) side of tongue mirtazapine 30 mg tablet 30 mg PO BEDTIME zolpidem 10 mg tablet 12.5 mg PO BEDTIME PRN (Reason: Insomnia) Vitamin D (with calcium) 1 tab PO DAILY Rx Instructions: unknown dose, OTC nicotine 14 mg/24 hr Patch 24 Hour 14 mg transdermal DAILY 28 Days Qty: 28 0RF divalproex 250 mg Tablet,Delayed Release (Dr/Ec) 750 mg PO BID 30 Days Qty: 180 0RF olanzapine 10 mg Tablet 20 mg PO BEDTIME 30 Days Qty: 60 0RF docusate sodium 100 mg Capsule 100 mg PO BID 30 Days Qty: 60 0RF ondansetron 4 mg tablet,disintegrating 4 mg PO Q8H PRN (Reason: nausea and vomiting) Qty: 20 0RF omeprazole 20 mg tablet,delayed release (DR/EC) 20 mg PO DAILY Qty: 14 0RF ondansetron 4 mg tablet,disintegrating 4 mg PO Q8H PRN (Reason: nausea and vomiting) Qty: 20 0RF hydroxyzine HCl 50 mg tablet 50 mg PO QID PRN (Reason: anxiety) Discharge Date/Time: 01/11/23 22:16
== END 2023-01-11 22:16 | disposition left against medical advice (07) ==
LOC: HO.ED 21:55
PROVIDERS: Emergency Provider Emergency Medicine
DX: R10.13 Epigastric pain (principal); F17.210 Nicotine dependence, cigarettes, uncomplicated; Z71.6 Tobacco abuse counseling; Z79.899 Other long term (current) drug therapy
CPT/HCPCS: 99281; 99282

== ENCOUNTER 2023-01-18 12:11 | Emergency (ER) | payer MEDICAID, SELFPAY ==
[2023-01-18 12:18] VITALS: BP 110/68; BP 97/69; PULSE 70; PULSE 72; RESP 18; TEMP 36.7; O2SAT 96; O2SAT 97; BMI 27.0
--- NOTE | 2023-01-18 12:20 | ECG_ITS ---
Test Reason : CHEST PAIN Blood Pressure : / mmHG Vent. Rate : 070 BPM Atrial Rate : 070 BPM P-R Int : 134 ms QRS Dur : 078 ms QT Int : 390 ms P-R-T Axes : 020 -05 004 degrees QTc Int : 421 ms Normal sinus rhythm Normal ECG When compared with ECG of 06-JAN-2023 17:15, No significant change was found Referred By: Marbin Villa Electronically Signed By:ZOË WALTERS MD
--- NOTE | 2023-01-18 12:24 | ED_ITS ---
HPI - General Adult General Chief complaint: Chest Pain Stated complaint: CHEST PAIN, ABD PAIN, CONSTIPATION X 7 DAYS History of Present Illness HPI narrative: Patient left the ED without completing treatment from ED provider Related Data Home Medications Medication Instructions Recorded Confirmed hydroxyzine HCl 50 mg tablet 50 mg PO QID PRN anxiety 03/03/22 09/23/22 amitriptyline 100 mg tablet 125 mg PO BEDTIME 07/11/22 09/23/22 atenolol 25 mg tablet 25 mg PO DAILY 07/11/22 09/23/22 cholecalciferol (vitamin D3) 25 25 mcg PO DAILY 07/11/22 09/23/22 mcg (1,000 unit) tablet (Vitamin D3) clonidine HCl 0.2 mg tablet 0.2 mg PO BID 07/11/22 09/23/22 melatonin 10 mg tablet 10 mg PO BEDTIME 07/11/22 09/23/22 metformin 500 mg tablet,extended 500 mg PO DAILY 07/11/22 09/23/22 release 24 hr terazosin 5 mg capsule 5 mg PO BEDTIME 07/11/22 09/23/22 Vitamin D (with calcium) 1 tab PO DAILY 09/23/22 09/23/22 mirtazapine 30 mg tablet 30 mg PO BEDTIME 09/23/22 09/23/22 zolpidem 10 mg tablet 12.5 mg PO BEDTIME PRN Insomnia 09/23/22 09/23/22 Previous Rx's Medication Instructions Recorded buprenorphine 2 mg-naloxone 0.5 mg 1 film buccal DAILY #6 ea 07/18/22 sublingual film (Suboxone) bethanechol chloride 50 mg tablet 50 mg PO BID 90 days #180 tabs 08/22/22 divalproex 250 mg tablet,delayed 750 mg (3 x 250 mg) PO BID 30 days 09/29/22 release #180 tabs docusate sodium 100 mg capsule 100 mg PO BID 30 days #60 caps 09/29/22 nicotine 14 mg/24 hr daily 14 mg transdermal DAILY 28 days 09/29/22 transdermal patch #28 ea olanzapine 10 mg tablet 20 mg (2 x 10 mg) PO BEDTIME 30 09/29/22 days #60 tabs omeprazole 20 mg tablet,delayed 20 mg PO DAILY #14 tabs 10/01/22 release ondansetron 4 mg disintegrating 4 mg PO Q8H PRN nausea and 10/01/22 tablet vomiting #20 tabs ondansetron 4 mg disintegrating 4 mg PO Q6-8H PRN nausea and 10/08/22 tablet vomiting #10 tabs ondansetron 4 mg disintegrating 4 mg PO Q8H PRN nausea and 10/18/22 tablet vomiting #20 tabs Allergies Allergy/AdvReac Type Severity Reaction Status Date / Time trazodone [TRAZODONE] Allergy Severe FACIAL Verified 01/11/23 18:46 SWELLING, swelling cat dander [CATS] Allergy Intermediate FACIAL Verified 01/11/23 18:46 ITCHING doxepin [DOXEPIN] Allergy Intermediate WEIGHT Verified 01/11/23 18:46 GAIN/LEG SWELLING Iodinated Contrast Media Allergy Intermediate ITCHING Verified 01/11/23 18:46 [IV DYE, IODINE CONTAINING CONTRAST ] nitroglycerin [NITROGLYCERIN] Allergy Unknown UNKNOWN Verified 01/11/23 18:46 tramadol [TRAMADOL] Allergy Unknown UNKNOWN, Verified 01/11/23 18:46 dry mouth ibuprofen [From MOTRIN] AdvReac Intermediate GI UPSET Verified 01/11/23 18:46 quetiapine [From SEROQUEL] AdvReac Intermediate FACIAL Verified 01/11/23 18:46 SWELLING aspirin [ASPIRIN] AdvReac Mild Stomach Verified 01/11/23 18:46 Upset Ibuprofen Allergy Unknown stomach Uncoded 10/08/22 21:52 ache IV contrast Allergy Unknown Unknown Uncoded 10/08/22 21:52 Motrin Allergy Unknown stomach Uncoded 10/08/22 21:52 pain PMFSH Past Medical History Medical History Alcohol dependence Anxiety Chest pain Derangement of symphysis pubis Dysphagia GERD (gastroesophageal reflux disease) Low TSH level Major depressive disorder, recurrent severe without psychotic features Opioid abuse Weight loss Surgical History H/O umbilical hernia repair History of colonoscopy History of cystoscopy Family History Family History Father HTN (hypertension) Diabetes Mother HTN (hypertension) Stroke Alzheimer disease Heart disease Social History Social History Household Members: None Housing: Apartment Do you presently have visiting nurse or other home services: Yes Alcohol intake: former Patient Tobacco Use Status: Current everyday Tobacco user Tobacco use type: Cigarette Cigarette Packs Per Day: 1 Cigarettes Per Day: 20.0 Years Smoked: 9 e-Cigarette/Vaping Use: Never Used Second Hand Smoke Exposure: Yes Substance Use Type: Heroin and Opiates Advance Directives: Yes Advance Directives on File: Yes Advance Directives Date on File: 02/14/20 service: No Current occupational status: unemployed and disabled Sexual orientation: Straight/Heterosexual Physical Exam ED Vital Signs: Vital Signs - 24 hr 01/18/23 12:18 Temperature 98.1 F Pulse Rate 72 Respiratory Rate 18 Blood Pressure 97/69 Pulse Oximetry 97 Oxygen Delivery Method Room Air BMI result Body Mass Index 27.0 Course Course Course Narrative: RME: 52 yold male presents to the ED for chest pain and constipation for 7 days. Labs, ekg, chest xray, and KUB ordered? Medical Decision Making Lab Data 01/18/23 12:42 01/18/23 12:42 Labs: Lab Results 01/18/23 Range/Units 12:42 WBC 11.9 H (4.8-10.8) X10*3/uL RBC 4.34 L (4.60-5.80) X10*6/uL Hgb 12.8 L D (14.0-18.0) g/dl Hct 39.1 L (42.0-52.0) % MCV 90.1 (80.0-98.0) fL MCH 29.5 (27.0-33.0) pg MCHC 32.7 (31.0-36.0) g/dl RDW 14.2 (11.0-16.0) % Plt Count 247 (160-400) X10*3/uL MPV 9.4 (9.4-12.4) fL Immature Gran % (Auto) 0.3 (0.0-0.4) % Neut % (Auto) 78.7 H (45-73) % Lymph % (Auto) 12.7 L (20-40) % Reeves % (Auto) 4.4 (2-11) % Eos % (Auto) 3.6 (0-4) % Baso % (Auto) 0.3 (0-2) % Lymph # (Auto) 1.5 (1.2-4.9) X10*3/uL Reeves # (Auto) 0.5 (0.1-1.2) X10*3/uL Eos # (Auto) 0.4 (0.0-0.4) X10*3/uL Baso # (Auto) 0.0 (0.0-0.2) X10*3/uL Abs Immat Gran (auto) 0.03 (0.00-0.03) X10*3/uL Absolute Neuts (auto) 9.3 H (2.0-8.3) x10*3/uL Absolute Nucleated RBC 0.000 (0.0-0.012) X10*3/uL Nucleated RBC % (auto) 0.0 (0.0-0.2) /100WBC PT 12.1 (11.1-13.3) SEC INR 1.0 (0.9-1.1) APTT 29.9 (26.0-36.4) SEC Sodium 143 (135-145) mmol/L Potassium 4.0 (3.3-5.1) mmol/L Chloride 105 (96-108) mmol/L Carbon Dioxide 25 (22-29) mmol/L Anion Gap 17 (12-20) BUN 10 (9-16) mg/dL Creatinine 0.84 (0.5-1.4) mg/dL Estim Creat Clear Calc 87.4 Estimated GFR > 60 Random Glucose 142 H (60-115) mg/dL Calcium 10.3 H (8.4-10.2) mg/dL Total Bilirubin 0.3 (0.0-1.0) mg/dL AST 16 (5-37) U/L ALT 13 (0-40) U/L Alkaline Phosphatase 86 (39-117) U/L Troponin I High Sens < 2.7 (<3.5-35.0) ng/L B-Natriuretic Peptide 60 (<100) pg/mL Total Protein 8.0 (6.5-8.0) g/dL Albumin 4.2 (3.5-5.0) g/dL Discharge Plan Discharge Clinical Impression: Chest pain Patient Disposition: Left W/O Completing Treatment Prescriptions: No Action bethanechol chloride 50 mg tablet 50 mg PO BID 90 Days Qty: 180 1RF ondansetron 4 mg tablet,disintegrating 4 mg PO Q6-8H PRN (Reason: nausea and vomiting) Qty: 10 0RF metformin 500 mg Tablet Extended Release 24 Hr 500 mg PO DAILY atenolol 25 mg Tablet 25 mg PO DAILY amitriptyline 100 mg Tablet 125 mg PO BEDTIME cholecalciferol (vitamin D3) [Vitamin D3] 25 mcg (1,000 unit) Tablet 25 mcg PO DAILY clonidine HCl 0.2 mg Tablet 0.2 mg PO BID melatonin 10 mg Tablet 10 mg PO BEDTIME terazosin 5 mg Capsule 5 mg PO BEDTIME buprenorphine-naloxone [Suboxone] 2-0.5 mg film 1 film buccal DAILY Qty: 6 0RF Rx Instructions: place 1 strip/tab under (each) side of tongue mirtazapine 30 mg tablet 30 mg PO BEDTIME zolpidem 10 mg tablet 12.5 mg PO BEDTIME PRN (Reason: Insomnia) Vitamin D (with calcium) 1 tab PO DAILY Rx Instructions: unknown dose, OTC nicotine 14 mg/24 hr Patch 24 Hour 14 mg transdermal DAILY 28 Days Qty: 28 0RF divalproex 250 mg Tablet,Delayed Release (Dr/Ec) 750 mg PO BID 30 Days Qty: 180 0RF olanzapine 10 mg Tablet 20 mg PO BEDTIME 30 Days Qty: 60 0RF docusate sodium 100 mg Capsule 100 mg PO BID 30 Days Qty: 60 0RF ondansetron 4 mg tablet,disintegrating 4 mg PO Q8H PRN (Reason: nausea and vomiting) Qty: 20 0RF omeprazole 20 mg tablet,delayed release (DR/EC) 20 mg PO DAILY Qty: 14 0RF ondansetron 4 mg tablet,disintegrating 4 mg PO Q8H PRN (Reason: nausea and vomiting) Qty: 20 0RF hydroxyzine HCl 50 mg tablet 50 mg PO QID PRN (Reason: anxiety) Discharge Date/Time: 01/18/23 16:48
[2023-01-18 12:49] LABS: MANUAL DIFF FLAG NO
[2023-01-18 12:50] LABS: Basophils Percent Auto 0.3 % (0-2); Eosinophils Absolute Auto 0.4 X10*3/uL (0.0-0.4); Eosinophils Percent Auto 3.6 % (0-4); Hematocrit 39.1 % (42.0-52.0); Hemoglobin 12.8 g/dl (14.0-18.0); Imm Gran Abs Auto 0.03 X10*3/uL (0.00-0.03); Imm Gran Pct Auto 0.3 % (0.0-0.4); Lymphocytes Absolute Auto 1.5 X10*3/uL (1.2-4.9); Lymphocytes Percent Auto 12.7 % (20-40); Mean Corpuscular HGB Conc 32.7 g/dl (31.0-36.0); Mean Corpuscular Hemoglobin 29.5 pg (27.0-33.0); Mean Corpuscular Volume 90.1 fL (80.0-98.0); Mean Platelet Volume 9.4 fL (9.4-12.4); Monocytes Absolute Auto 0.5 X10*3/uL (0.1-1.2); Monocytes Percent Auto 4.4 % (2-11); Neutrophils Absolute Auto 9.3 x10*3/uL (2.0-8.3); Neutrophils Percent Auto 78.7 % (45-73); Platelet Count 247 X10*3/uL (160-400); Red Blood Count 4.34 X10*6/uL (4.60-5.80); Red Cell Distribution Width 14.2 % (11.0-16.0); White Blood Count 11.9 X10*3/uL (4.8-10.8)
[2023-01-18 12:55] LABS: Prothrombin Time 12.1 SEC (11.1-13.3)
[2023-01-18 12:58] LABS: Partial Thromboplastin Time 29.9 SEC (26.0-36.4)
[2023-01-18 13:06] LABS: Alanine Aminotransferase 13 U/L (0-40); Albumin Level 4.2 g/dL (3.5-5.0); Alkaline Phosphatase 86 U/L (39-117); Anion Gap 17 (12-20); Aspartate Amino Transferase 16 U/L (5-37); Bilirubin Total 0.3 mg/dL (0.0-1.0); Blood Urea Nitrogen 10 mg/dL (9-16); Calcium 10.3 mg/dL (8.4-10.2); Carbon Dioxide 25 mmol/L (22-29); Chloride 105 mmol/L (96-108); Creatinine Clr Calc Pharmacy 87.4; Estimated Glomerular Filt Rate > 60; Glucose Random 142 mg/dL (60-115); Sodium 143 mmol/L (135-145)
[2023-01-18 13:12] LABS: B Type Natriuretic Peptide 60 pg/mL (<100)
[2023-01-18 13:22] LABS: Troponin-I High Sensitivity < 2.7 ng/L (<3.5-35.0)
== END 2023-01-18 16:48 | disposition left against medical advice (07) ==
LOC: HO.ED 16:24
PROVIDERS: Physician Assistant; Emergency Provider Emergency Medicine
DX: R07.89 Other chest pain (principal); R10.9 Unspecified abdominal pain; K59.00 Constipation, unspecified; R06.02 Shortness of breath; Z79.899 Other long term (current) drug therapy; F17.210 Nicotine dependence, cigarettes, uncomplicated; Z71.6 Tobacco abuse counseling
CPT/HCPCS: 36415; 80053; 83880; 84484; 85025; 85610; 85730; 93005; 99283

== ENCOUNTER 2023-02-03 01:03 | Emergency (ER) | payer MEDICAID, SELFPAY ==
--- NOTE | 2023-02-03 | ECG_ITS ---
Test Reason : CP Blood Pressure : / mmHG Vent. Rate : 067 BPM Atrial Rate : 067 BPM P-R Int : 150 ms QRS Dur : 086 ms QT Int : 418 ms P-R-T Axes : 013 -08 024 degrees QTc Int : 441 ms Normal sinus rhythm Minimal voltage criteria for LVH, may be normal variant ( R in aVL ) Borderline ECG When compared with ECG of 18-JAN-2023 12:28, No significant change was found Referred By: Elaina Maravilla Electronically Signed By:ZOË WALTERS MD
--- NOTE | ~2023-02-03 | XR_ITS ---
EXAMINATION: XR CHEST CLINICAL INFORMATION: Pain. COMPARISON: 11/08/2022. TECHNIQUE: Frontal view of the chest was obtained. FINDINGS: The cardiomediastinal silhouette is normal. There is no focal lung consolidation or pleural effusion. The bony structures and soft tissues are unremarkable. XR/XR chest 1V IMPRESSION: No active cardiopulmonary disease.
[2023-02-03 01:08] VITALS: BP 132/81; BP 140/85; PULSE 61; PULSE 67; RESP 14; TEMP 37.1; O2SAT 100; O2SAT 98; BMI 25.5
[2023-02-03 01:13] VITALS: PULSE 67; PULSE 69
--- NOTE | 2023-02-03 01:15 | ED_ITS ---
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 MD complaint: chest discomfort Onset (ago): day(s) (3) Timing of current episode: constant Prior episodes: Yes Onset: during rest Pain location: substernal Severity: mild Quality: tightness Relieving factors: nothing Exacerbating factors: nothing Associated symptoms: nausea Treatment prior to arrival: none Related Data Home Medications Medication Instructions Recorded Confirmed hydroxyzine HCl 50 mg tablet 50 mg PO QID PRN anxiety 03/03/22 09/23/22 amitriptyline 100 mg tablet 125 mg PO BEDTIME 07/11/22 09/23/22 atenolol 25 mg tablet 25 mg PO DAILY 07/11/22 09/23/22 cholecalciferol (vitamin D3) 25 25 mcg PO DAILY 07/11/22 09/23/22 mcg (1,000 unit) tablet (Vitamin D3) clonidine HCl 0.2 mg tablet 0.2 mg PO BID 07/11/22 09/23/22 melatonin 10 mg tablet 10 mg PO BEDTIME 07/11/22 09/23/22 metformin 500 mg tablet,extended 500 mg PO DAILY 07/11/22 09/23/22 release 24 hr terazosin 5 mg capsule 5 mg PO BEDTIME 07/11/22 09/23/22 Vitamin D (with calcium) 1 tab PO DAILY 09/23/22 09/23/22 mirtazapine 30 mg tablet 30 mg PO BEDTIME 09/23/22 09/23/22 zolpidem 10 mg tablet 12.5 mg PO BEDTIME PRN Insomnia 09/23/22 09/23/22 Previous Rx's Medication Instructions Recorded buprenorphine 2 mg-naloxone 0.5 mg 1 film buccal DAILY #6 ea 07/18/22 sublingual film (Suboxone) bethanechol chloride 50 mg tablet 50 mg PO BID 90 days #180 tabs 08/22/22 divalproex 250 mg tablet,delayed 750 mg (3 x 250 mg) PO BID 30 days 09/29/22 release #180 tabs docusate sodium 100 mg capsule 100 mg PO BID 30 days #60 caps 09/29/22 nicotine 14 mg/24 hr daily 14 mg transdermal DAILY 28 days 09/29/22 transdermal patch #28 ea olanzapine 10 mg tablet 20 mg (2 x 10 mg) PO BEDTIME 30 09/29/22 days #60 tabs omeprazole 20 mg tablet,delayed 20 mg PO DAILY #14 tabs 10/01/22 release ondansetron 4 mg disintegrating 4 mg PO Q8H PRN nausea and 10/01/22 tablet vomiting #20 tabs ondansetron 4 mg disintegrating 4 mg PO Q6-8H PRN nausea and 10/08/22 tablet vomiting #10 tabs ondansetron 4 mg disintegrating 4 mg PO Q8H PRN nausea and 10/18/22 tablet vomiting #20 tabs Allergies Allergy/AdvReac Type Severity Reaction Status Date / Time trazodone [TRAZODONE] Allergy Severe FACIAL Verified 01/11/23 18:46 SWELLING, swelling cat dander [CATS] Allergy Intermediate FACIAL Verified 01/11/23 18:46 ITCHING doxepin [DOXEPIN] Allergy Intermediate WEIGHT Verified 01/11/23 18:46 GAIN/LEG SWELLING Iodinated Contrast Media Allergy Intermediate ITCHING Verified 01/11/23 18:46 [IV DYE, IODINE CONTAINING CONTRAST ] nitroglycerin [NITROGLYCERIN] Allergy Unknown UNKNOWN Verified 01/11/23 18:46 tramadol [TRAMADOL] Allergy Unknown UNKNOWN, Verified 01/11/23 18:46 dry mouth ibuprofen [From MOTRIN] AdvReac Intermediate GI UPSET Verified 01/11/23 18:46 quetiapine [From SEROQUEL] AdvReac Intermediate FACIAL Verified 01/11/23 18:46 SWELLING aspirin [ASPIRIN] AdvReac Mild Stomach Verified 01/11/23 18:46 Upset Ibuprofen Allergy Unknown stomach Uncoded 10/08/22 21:52 ache IV contrast Allergy Unknown Unknown Uncoded 10/08/22 21:52 Motrin Allergy Unknown stomach Uncoded 10/08/22 21:52 pain Review of Systems 2 Review of Systems: Constitutional : No Weight loss, No Fever, No Chills ENT/Mouth : No sore throat, No Rhinorrhea Eyes: No Swelling, No Redness Cardiovascular : pos Chest Pain, No SOB, NoEdema Respiratory : No Cough, No Sputum, No Wheezing Gastrointestinal : Positive Nausea, no Vomiting, no Diarrhea, positive abdominal Pain, No Hematochezia, No Melena Genitourinary : No Dysuria, No Urinary Frequency, No Hematuria, No Urgency Musculoskeletal : No joint pain, No Myalgias, No Joint Swelling Skin : No Skin Lesions, No rash Neuro : No Weakness, No Numbness, No Dizziness, No Headache Psych : No Anxiety/Panic, No Depression Heme/Lymph: No Bruising, No Lymphadenopathy Endocrine : No Polyuria, No Polydipsia All other systems reviewed and are negative. [facility] Past Medical History Attestation statement: The following information was validated with the patient. 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 GERD (gastroesophageal reflux disease) Anxiety Surgical History History of colonoscopy History of cystoscopy H/O umbilical hernia repair Family History Family History Father HTN (hypertension) Diabetes Mother HTN (hypertension) Stroke Alzheimer disease Heart disease Social History Social History Household Members: None Housing: Apartment Do you presently have visiting nurse or other home services: Yes Alcohol intake: former Patient Tobacco Use Status: Current everyday Tobacco user Tobacco use type: Cigarette Cigarette Packs Per Day: 1 Cigarettes Per Day: 20.0 Years Smoked: 9 Smoked in Last 30 Days: No e-Cigarette/Vaping Use: Never Used Second Hand Smoke Exposure: Yes Use of substances other than those prescribed or required for medical reasons: No Substance Use Type: Heroin and Opiates Advance Directives: Yes Advance Directives on File: Yes Advance Directives Date on File: 02/14/20 service: No Current occupational status: unemployed and disabled Sexual orientation: Straight/Heterosexual Physical Exam 2 Vital Signs: Vital Signs: Last Vital Signs Temp 98.7 F 02/03/23 01:08 Pulse 69 02/03/23 01:13 Resp 14 02/03/23 01:08 BP 140/85 H 02/03/23 01:08 Pulse Ox 98 02/03/23 01:08 O2 Del Method Room Air 02/03/23 01:08 BMI result Body Mass Index 25.5 Appearance: Alert. Oriented X3. No acute distress. Eyes: Pupils equal, round and reactive to light. ENT: Pharynx normal. Neck: Normal inspection. Neck supple. CVS: Normal heart rate and rhythm. Pulses normal. Respiratory: No respiratory distress. Breath sounds normal. Abdomen: Soft and nontender. Skin: Skin warm and dry. Normal skin color. Normal skin turgor. Extremities: No lower extremity edema. No calf ttp Neuro: Oriented X 3. No motor deficit. No sensory deficit. Medications Administered Discontinued Medications Generic Name Dose Route Start Last Admin Trade Name Freq PRN Reason Stop Dose Admin Ondansetron HCl 4 mg 02/03/23 01:37 02/03/23 01:44 Ondansetron Odt 4 Mg Tab.Rapdis TRANSLINGU 02/03/23 01:38 4 mg ONCE ONE Administration Oxycodone HCl 5 mg 02/03/23 01:37 02/03/23 01:45 Oxycodone Hcl Immed Release 5 Mg Tablet PO 02/03/23 01:38 5 mg ONCE ONE Administration Medical Decision Making Medical Decision Making [facility] Narrative: 52 yo male with PMH of depression, GERD, dysphagia, BPH, bipolar, anemia, alcohol and opiate use disorder, anxiety here with c/o chest pain and abdominal pain which he has had chronically in the past with negative workup he has benign abdominal exam - will obtain CXR, EKG, troponin x 1, abdominal labs but he is in no distress and it is non-tender. Suspect his chronic complaints of pain. Differential Diagnosis Differential Diagnoses: The differential diagnosis associated with the presentation includes atypical chest pain, GERD, spasms no hypoxia not pleuritic no signs of DVT doubt VTE hx of same in past recurrent doubt dissection Admission/Observation Consideration of admission/observation: Escalation of care including admission/observation considered EKG and trop flat - doubt ischemia can be worked up as negative Lab Data [facility] Lab Attestation statement: I reviewed the patient's lab results. 02/03/23 01:27 02/03/23 01:27 Labs: Lab Results 02/03/23 Range/Units 01:27 WBC 6.8 (4.8-10.8) X10*3/uL RBC 4.43 L (4.60-5.80) X10*6/uL Hgb 13.0 L (14.0-18.0) g/dl Hct 40.2 L (42.0-52.0) % MCV 90.7 (80.0-98.0) fL MCH 29.3 (27.0-33.0) pg MCHC 32.3 (31.0-36.0) g/dl RDW 14.2 (11.0-16.0) % Plt Count 225 (160-400) X10*3/uL MPV 9.8 (9.4-12.4) fL Absolute Nucleated RBC 0.000 (0.0-0.012) X10*3/uL Nucleated RBC % (auto) 0.0 (0.0-0.2) /100WBC Sodium 143 (135-145) mmol/L Potassium 3.7 (3.3-5.1) mmol/L Chloride 105 (96-108) mmol/L Carbon Dioxide 25 (22-29) mmol/L Anion Gap 17 (12-20) BUN 6 L (9-16) mg/dL Creatinine 0.87 (0.5-1.4) mg/dL Estim Creat Clear Calc 84.4 Estimated GFR > 60 Random Glucose 84 (60-115) mg/dL Calcium 9.6 D (8.4-10.2) mg/dL Total Bilirubin 0.1 (0.0-1.0) mg/dL AST 27 (5-37) U/L ALT 21 (0-40) U/L Alkaline Phosphatase 75 (39-117) U/L Troponin I High Sens < 2.7 (<3.5-35.0) ng/L Total Protein 7.7 (6.5-8.0) g/dL Albumin 4.0 (3.5-5.0) g/dL Lipase 11 (8-78) U/L Independent Interpretation I performed an independent interpretation of an: EKG and Plain X-Ray (normal ) Interpretation: Rate: 67 Rhythm: NSR [place]: left Normal P waves. Normal ELLEN. Normal QRS complex. ST T wave : normal no MARIAMA qTC: normal prior studies: no acute ischemia The study has been interpreted contemporaneously by me. . Radiology Impression Discussion of test interpretation with radiology: I have reviewed the radiologist's reading. External Record Review External record reviewed: Inpatient record Discharge Plan Discharge Clinical Impression: Atypical chest pain Patient Disposition: Home, Self-Care Instructions: Chest Pain (ED) Additional Instructions: labs and xray normal. please follow up with your doctor. return for fevers, worsening pain, trouble breathing or any other concerns. laboratorios y radiograf?as normales. por favor virgie un seguimiento con owusu m?dico. Regrese si tiene fiebre, dolor que empeora, dificultad para respirar o cualquier otra inquietud. Prescriptions: No Action bethanechol chloride 50 mg tablet 50 mg PO BID 90 Days Qty: 180 1RF ondansetron 4 mg tablet,disintegrating 4 mg PO Q6-8H PRN (Reason: nausea and vomiting) Qty: 10 0RF metformin 500 mg Tablet Extended Release 24 Hr 500 mg PO DAILY atenolol 25 mg Tablet 25 mg PO DAILY amitriptyline 100 mg Tablet 125 mg PO BEDTIME cholecalciferol (vitamin D3) [Vitamin D3] 25 mcg (1,000 unit) Tablet 25 mcg PO DAILY clonidine HCl 0.2 mg Tablet 0.2 mg PO BID melatonin 10 mg Tablet 10 mg PO BEDTIME terazosin 5 mg Capsule 5 mg PO BEDTIME buprenorphine-naloxone [Suboxone] 2-0.5 mg film 1 film buccal DAILY Qty: 6 0RF Rx Instructions: place 1 strip/tab under (each) side of tongue mirtazapine 30 mg tablet 30 mg PO BEDTIME zolpidem 10 mg tablet 12.5 mg PO BEDTIME PRN (Reason: Insomnia) Vitamin D (with calcium) 1 tab PO DAILY Rx Instructions: unknown dose, OTC nicotine 14 mg/24 hr Patch 24 Hour 14 mg transdermal DAILY 28 Days Qty: 28 0RF divalproex 250 mg Tablet,Delayed Release (Dr/Ec) 750 mg PO BID 30 Days Qty: 180 0RF olanzapine 10 mg Tablet 20 mg PO BEDTIME 30 Days Qty: 60 0RF docusate sodium 100 mg Capsule 100 mg PO BID 30 Days Qty: 60 0RF ondansetron 4 mg tablet,disintegrating 4 mg PO Q8H PRN (Reason: nausea and vomiting) Qty: 20 0RF omeprazole 20 mg tablet,delayed release (DR/EC) 20 mg PO DAILY Qty: 14 0RF ondansetron 4 mg tablet,disintegrating 4 mg PO Q8H PRN (Reason: nausea and vomiting) Qty: 20 0RF hydroxyzine HCl 50 mg tablet 50 mg PO QID PRN (Reason: anxiety) Interventions: ED Discharge Assessment Last Done: 02/03/23 03:10 Discharge Date/Time: 02/03/23 03:10 Print Language: Azeri
[2023-02-03 01:35] LABS: Hematocrit 40.2 % (42.0-52.0); Mean Corpuscular HGB Conc 32.3 g/dl (31.0-36.0); Mean Corpuscular Hemoglobin 29.3 pg (27.0-33.0); Mean Corpuscular Volume 90.7 fL (80.0-98.0); Mean Platelet Volume 9.8 fL (9.4-12.4); Platelet Count 225 X10*3/uL (160-400); Red Blood Count 4.43 X10*6/uL (4.60-5.80); Red Cell Distribution Width 14.2 % (11.0-16.0); White Blood Count 6.8 X10*3/uL (4.8-10.8)
[2023-02-03] MEDS: Ondansetron ODT 4 MG TAB.RAPDIS TRANSLINGU (01:44)
[2023-02-03] MEDS: oxyCODONE HCl Immed Release 5 MG TABLET PO (01:45)
[2023-02-03 01:51] LABS: Alanine Aminotransferase 21 U/L (0-40); Alkaline Phosphatase 75 U/L (39-117); Anion Gap 17 (12-20); Aspartate Amino Transferase 27 U/L (5-37); Bilirubin Total 0.1 mg/dL (0.0-1.0); Blood Urea Nitrogen 6 mg/dL (9-16); Calcium 9.6 mg/dL (8.4-10.2); Carbon Dioxide 25 mmol/L (22-29); Chloride 105 mmol/L (96-108); Creatinine Clr Calc Pharmacy 84.4; Estimated Glomerular Filt Rate > 60; Glucose Random 84 mg/dL (60-115); Lipase 11 U/L (8-78); Potassium 3.7 mmol/L (3.3-5.1); Sodium 143 mmol/L (135-145); Total Protein 7.7 g/dL (6.5-8.0)
[2023-02-03 01:57] LABS: Troponin-I High Sensitivity < 2.7 ng/L (<3.5-35.0)
== END 2023-02-03 03:10 | disposition home or self-care (01) ==
PROVIDERS: Emergency Provider Emergency Medicine
DX: R07.89 Other chest pain (principal); D64.9 Anemia, unspecified; F17.210 Nicotine dependence, cigarettes, uncomplicated; Z79.899 Other long term (current) drug therapy
CPT/HCPCS: 36415; 71045; 80053; 83690; 84484; 85027; 93005; 99283; 99284

== ENCOUNTER 2023-02-19 10:03 | Outpatient (AMB) | payer MEDICAID, SELFPAY ==
[2023-02-19 10:08] VITALS: BMI 25.5
--- NOTE | 2023-02-19 10:08 | A.OFFVIS_ITS ---
Intake Vital Signs 02/19/23 10:08 Height 5 ft 5 in Weight 153 lb BMI 25.5 Intake Visit Reasons: OV-OSTEOARTHRITIS LT knee-MRI review Intake Note: Jerson valenzuela 52 year old male presents today for an MRI review of left knee. Patient reports injection on 09/04/22 provided him no relief, states no change in symptoms since his last visit. Allergies trazodone [TRAZODONE] Allergy (Severe, Verified 02/19/23 10:11) FACIAL SWELLING, swelling cat dander [CATS] Allergy (Intermediate, Verified 02/19/23 10:11) FACIAL ITCHING doxepin [DOXEPIN] Allergy (Intermediate, Verified 02/19/23 10:11) WEIGHT GAIN/LEG SWELLING Iodinated Contrast Media [IV DYE, IODINE CONTAINING CONTRAST ] Allergy (Intermediate, Verified 02/19/23 10:11) ITCHING nitroglycerin [NITROGLYCERIN] Allergy (Unknown, Verified 02/19/23 10:11) UNKNOWN tramadol [TRAMADOL] Allergy (Unknown, Verified 02/19/23 10:11) UNKNOWN, dry mouth ibuprofen [From MOTRIN] Adverse Reaction (Intermediate, Verified 02/19/23 10:11) GI UPSET quetiapine [From SEROQUEL] Adverse Reaction (Intermediate, Verified 02/19/23 10:11) FACIAL SWELLING aspirin [ASPIRIN] Adverse Reaction (Mild, Verified 02/19/23 10:11) Stomach Upset Ibuprofen Allergy (Unknown, Uncoded 02/19/23 10:11) stomach ache IV contrast Allergy (Unknown, Uncoded 02/19/23 10:11) Unknown Motrin Allergy (Unknown, Uncoded 02/19/23 10:11) stomach pain HPI OV-OSTEOARTHRITIS LT knee-MRI review HPI Details 56-year-old male who returns to the [facility] today for an MRI review of left knee. He continues to have pain and states he has no changes in his symptoms since his last visit. He had his last injection on 09/04/22 which did not provide him any relief. He has not had any physical therapy in the past. 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 GERD (gastroesophageal reflux disease) Anxiety Surgical History History of colonoscopy History of cystoscopy H/O umbilical hernia repair Family History Father HTN (hypertension) Diabetes Mother HTN (hypertension) Stroke Alzheimer disease Heart disease Social History Household Members: None Housing: Apartment Do you presently have visiting nurse or other home services: Yes Alcohol intake: former Patient Tobacco Use Status: Current everyday Tobacco user Tobacco use type: Cigarette Cigarette Packs Per Day: 1 Cigarettes Per Day: 20.0 Years Smoked: 9 e-Cigarette/Vaping Use: Never Used Second Hand Smoke Exposure: Yes Substance Use Type: Heroin and Opiates Advance Directives Date on File: 02/14/20 service: No Current occupational status: unemployed and disabled Sexual orientation: Straight/Heterosexual Review of Systems Const All systems reviewed & are unremarkable except as noted in HPI and below Physical Exam Vital Signs: BMI result Body Mass Index 25.5 Extrem Other: Left knee skin intact, no erythema or joint effusion. Tenderness along the media l joint line. ROM full with crepitus. Negative steinmans. No ligamentous laxity. NVI. Office Procedures Joint Injection/Drain Joint Injection/Drain Primary Site: left knee Prep: site was prepped using aseptic technique, ethochloride spray was applied and injection warnings given Injected: 80 mg of, DepoMedrol, with 8 mL of, 1% plain lidocaine and in the joint Approach Used: anterolateral Procedure: The patient tolerated the procedure well and there was some relief with the local anesthesia Coding 63968 - Glenohumeral/Tronchanteric Bursa/Intraarticular Procedure code (CPT) selection complete Results Reviewed Results Reviewed: MR knee LT wo con 01/06/23 IMPRESSION: 1. [id number] medial compartment osteoarthritis with associated complex tear of the posterior horn and body of the medial meniscus. 2. Mild osteoarthritis in the patellofemoral and lateral compartments. 3. Trace effusion. Assessment & Plan Assessment & Plan (1) Osteoarthritis of left knee: Code(s): M17.12 - Unilateral primary osteoarthritis, left knee Qualifiers: Osteoarthritis type: primary Qualified Code(s): M17.12 - Unilateral primary osteoarthritis, left knee Plan MRI results were reviewed with patient today. It appears that most of the pain is consistent with the OA. We discuss injection today which he did move forward with which he tolerated well. He was also sent to physical therapy to work on exercises for the left knee. If symptoms persist or worsens, patient will contact the office. We did discuss gel injection briefly. He will follow-up as needed. Orders: Orders PT Evaluation and Treatment 02/19/23 M17.12 - Unilateral primary osteoarthritis, left knee Patient Instructions: Scribed for Daiana Renee PA-C, by Lion Mcmahon medical sales specialist, on 02/19/2023 at 10:15 AM JAMILAH. I, Daiana Renee PA-C, have personally reviewed and agree with the information entered by the scribe. Coding Level of Care Code Est Pt Level 3 (20505) Diagnoses Primary osteoarthritis of left knee M17.12 Osteoarthritis type: primary CPT Codes Coding - Joint 7: 27368 - Glenohumeral/Tronchanteric Bursa/Intraarticular ([id number])
== END 2023-02-19 10:41 | disposition home or self-care (01) ==
PROVIDERS: Visit Provider Physician Assistant
DX: M17.12 Unilateral primary osteoarthritis, left knee (principal)
CPT/HCPCS: 20610; 99213

== ENCOUNTER → 2023-02-19 10:03 | Outpatient (BNVA) | payer MEDICAID, SELFPAY | PROVIDERS: Visit Provider Physician Assistant | DX: M17.12 Unilateral primary osteoarthritis, left knee (principal) | CPT/HCPCS: 20610; 99212; J1020 ==

== ENCOUNTER 2023-02-22 15:19 | Emergency (ER) | payer MEDICAID, SELFPAY ==
[2023-02-22 15:30] VITALS: BP 104/64; BP 122/78; PULSE 59; PULSE 74; RESP 18; TEMP 36.6; O2SAT 95; O2SAT 99; BMI 27.1
--- NOTE | 2023-02-22 15:34 | ECG_ITS ---
Test Reason : cp Blood Pressure : / mmHG Vent. Rate : 058 BPM Atrial Rate : 058 BPM P-R Int : 158 ms QRS Dur : 082 ms QT Int : 444 ms P-R-T Axes : 018 -02 019 degrees QTc Int : 435 ms Sinus bradycardia Minimal voltage criteria for LVH, may be normal variant ( R in aVL ) Borderline ECG When compared with ECG of 03-FEB-2023 01:14, Nonspecific T wave abnormality no longer evident in Lateral leads Referred By: Generic ED Physician Electronically Signed By:ZOË WALTERS MD
[2023-02-22 16:12] VITALS: BP 101/60; PULSE 58; RESP 17; O2SAT 94
[2023-02-22 16:26] LABS: MANUAL DIFF FLAG NO
[2023-02-22 16:33] LABS: Basophils Absolute Auto 0.1 X10*3/uL (0.0-0.2); Basophils Percent Auto 0.7 % (0-2); Eosinophils Absolute Auto 0.5 X10*3/uL (0.0-0.4); Eosinophils Percent Auto 5.2 % (0-4); Hematocrit 34.9 % (42.0-52.0); Hemoglobin 11.5 g/dl (14.0-18.0); Imm Gran Abs Auto 0.04 X10*3/uL (0.00-0.03); Imm Gran Pct Auto 0.4 % (0.0-0.4); Lymphocytes Absolute Auto 2.8 X10*3/uL (1.2-4.9); Mean Corpuscular Volume 87.9 fL (80.0-98.0); Mean Platelet Volume 9.2 fL (9.4-12.4); Monocytes Absolute Auto 0.6 X10*3/uL (0.1-1.2); Monocytes Percent Auto 7.1 % (2-11); Neutrophils Percent Auto 55.6 % (45-73); Platelet Count 233 X10*3/uL (160-400); Red Blood Count 3.97 X10*6/uL (4.60-5.80); Red Cell Distribution Width 14.8 % (11.0-16.0)
[2023-02-22 16:34] LABS: Prothrombin Time 11.9 SEC (11.1-13.3)
[2023-02-22 16:46] LABS: Alanine Aminotransferase 16 U/L (0-40); Albumin Level 3.9 g/dL (3.5-5.0); Alkaline Phosphatase 71 U/L (39-117); Anion Gap 12 (12-20); Aspartate Amino Transferase 23 U/L (5-37); Bilirubin Total 0.1 mg/dL (0.0-1.0); Blood Urea Nitrogen 16 mg/dL (9-16); Calcium 8.7 mg/dL (8.4-10.2); Carbon Dioxide 28 mmol/L (22-29); Chloride 101 mmol/L (96-108); Creatinine Clr Calc Pharmacy 79.3; Estimated Glomerular Filt Rate > 60; Glucose Random 98 mg/dL (60-115); Lipase 12 U/L (8-78); Potassium 4.3 mmol/L (3.3-5.1); Sodium 137 mmol/L (135-145); Total Protein 7.1 g/dL (6.5-8.0)
[2023-02-22 16:48] LABS: Ethanol < 10 mg/dL
[2023-02-22 16:49] LABS: Appearance Urine Clear; Color Urine Yellow; Glucose Urine UA Negative (Negative); Leukocyte Esterase Urine Large (3+) (Negative); Nitrite Urine Negative (Negative); UMIC TRIGGER UACC YES; Urine Blood Negative (Negative); Urine Ketones Negative (Negative); Urine Protein Negative (Neg-Trace)
[2023-02-22 16:52] LABS: Bacteria Urine None Seen (None Seen); Hyaline Casts Urine 0-2 /LPF (0-2); RBC Urine 0-2 /HPF (0-2); Squamous Epithelial Cell Urine 0-2 /HPF (0-2); UACC Culture Trigger YES
[2023-02-22 16:54] LABS: Amphetamine Screen Urine Not Detected (Not Detect); Barbiturates, Urine Not Detected (Not Detect); Benzodiazepines Screen Urine POSITIVE (Not Detect); Cannabinoid Screen Urine Not Detected (Not Detect); Cocaine Screen Urine POSITIVE (Not Detect); Fentanyl, urine Not Detected (Not Detect); Opiate Screen Urine Not Detected (Not Detect); Phencyclidine Screen Urine Not Detected (Not Detect)
--- NOTE | 2023-02-22 16:55 | ED.CHESTPAIN ---
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 Patient was evaluated here on 02/03 and patient does report subjective fevers, chills, nausea +. Related Data Home Medications Medication Instructions Recorded Confirmed hydroxyzine HCl 50 mg tablet 50 mg PO QID PRN anxiety 03/03/22 09/23/22 amitriptyline 100 mg tablet 125 mg PO BEDTIME 07/11/22 09/23/22 atenolol 25 mg tablet 25 mg PO DAILY 07/11/22 09/23/22 cholecalciferol (vitamin D3) 25 25 mcg PO DAILY 07/11/22 09/23/22 mcg (1,000 unit) tablet (Vitamin D3) clonidine HCl 0.2 mg tablet 0.2 mg PO BID 07/11/22 09/23/22 melatonin 10 mg tablet 10 mg PO BEDTIME 07/11/22 09/23/22 metformin 500 mg tablet,extended 500 mg PO DAILY 07/11/22 09/23/22 release 24 hr terazosin 5 mg capsule 5 mg PO BEDTIME 07/11/22 09/23/22 Vitamin D (with calcium) 1 tab PO DAILY 09/23/22 09/23/22 mirtazapine 30 mg tablet 30 mg PO BEDTIME 09/23/22 09/23/22 zolpidem 10 mg tablet 12.5 mg PO BEDTIME PRN Insomnia 09/23/22 09/23/22 Previous Rx's Medication Instructions Recorded buprenorphine 2 mg-naloxone 0.5 mg 1 film buccal DAILY #6 ea 07/18/22 sublingual film (Suboxone) bethanechol chloride 50 mg tablet 50 mg PO BID 90 days #180 tabs 08/22/22 divalproex 250 mg tablet,delayed 750 mg (3 x 250 mg) PO BID 30 days 09/29/22 release #180 tabs docusate sodium 100 mg capsule 100 mg PO BID 30 days #60 caps 09/29/22 nicotine 14 mg/24 hr daily 14 mg transdermal DAILY 28 days 09/29/22 transdermal patch #28 ea olanzapine 10 mg tablet 20 mg (2 x 10 mg) PO BEDTIME 30 09/29/22 days #60 tabs omeprazole 20 mg tablet,delayed 20 mg PO DAILY #14 tabs 10/01/22 release ondansetron 4 mg disintegrating 4 mg PO Q8H PRN nausea and 10/01/22 tablet vomiting #20 tabs ondansetron 4 mg disintegrating 4 mg PO Q6-8H PRN nausea and 10/08/22 tablet vomiting #10 tabs ondansetron 4 mg disintegrating 4 mg PO Q8H PRN nausea and 10/18/22 tablet vomiting #20 tabs cefdinir 300 mg capsule 300 mg PO BID 7 days #14 caps 02/22/23 Allergies Allergy/AdvReac Type Severity Reaction Status Date / Time trazodone [TRAZODONE] Allergy Severe FACIAL Verified 02/19/23 10:11 SWELLING, swelling cat dander [CATS] Allergy Intermediate FACIAL Verified 02/19/23 10:11 ITCHING doxepin [DOXEPIN] Allergy Intermediate WEIGHT Verified 02/19/23 10:11 GAIN/LEG SWELLING Iodinated Contrast Media Allergy Intermediate ITCHING Verified 02/19/23 10:11 [IV DYE, IODINE CONTAINING CONTRAST ] nitroglycerin [NITROGLYCERIN] Allergy Unknown UNKNOWN Verified 02/19/23 10:11 tramadol [TRAMADOL] Allergy Unknown UNKNOWN, Verified 02/19/23 10:11 dry mouth ibuprofen [From MOTRIN] AdvReac Intermediate GI UPSET Verified 02/19/23 10:11 quetiapine [From SEROQUEL] AdvReac Intermediate FACIAL Verified 02/19/23 10:11 SWELLING aspirin [ASPIRIN] AdvReac Mild Stomach Verified 02/19/23 10:11 Upset Ibuprofen Allergy Unknown stomach Uncoded 02/19/23 10:11 ache IV contrast Allergy Unknown Unknown Uncoded 02/19/23 10:11 Motrin Allergy Unknown stomach Uncoded 02/19/23 10:11 pain Review of Systems Review of Systems: Pertinent positives and negatives as stated in HPI [facility] Past Medical History Source: nursing notes reviewed 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 GERD (gastroesophageal reflux disease) Anxiety Surgical History History of colonoscopy History of cystoscopy H/O umbilical hernia repair Family History Family History Father HTN (hypertension) Diabetes Mother HTN (hypertension) Stroke Alzheimer disease Heart disease Social History Social History Household Members: None Housing: Apartment Do you presently have visiting nurse or other home services: Yes Alcohol intake: former Patient Tobacco Use Status: Current everyday Tobacco user Tobacco use type: Cigarette Cigarette Packs Per Day: 1 Cigarettes Per Day: 20.0 Years Smoked: 9 e-Cigarette/Vaping Use: Never Used Second Hand Smoke Exposure: Yes Substance Use Type: Heroin and Opiates Advance Directives: Yes Advance Directives on File: Yes Advance Directives Date on File: 02/14/20 service: No Current occupational status: unemployed and disabled Sexual orientation: Straight/Heterosexual Physical Exam Vital Signs: Vital Signs: Last Vital Signs Temp 97.8 F 02/22/23 15:30 Pulse 58 02/22/23 16:12 Resp 17 02/22/23 16:12 BP 101/60 02/22/23 16:12 Pulse Ox 94 02/22/23 16:12 O2 Del Method Room Air 02/22/23 16:12 BMI result Body Mass Index 27.1 VITAL SIGNS: Reviewed. GENERAL: Well developed, well nourished, in no acute distress. HEAD: Normocephalic/atraumatic EYES: PERRLA, EOMI EARS: Ext canals without abnormality NOSE: Nares patent bilateral OROPHARYNX: no oral lesions noted, posterior pharynx clear NECK: Supple, no adenopathy LUNGS: Normal breath sounds. No adventitious sounds or accessory muscle use. SpO2<94> CARDIOVASCULAR: Regular rate and rhythm without noted murmurs ABDOMEN: Soft, left lower quadrant pain, non-distended with bowel sounds. MUSCULOSKELETAL: No tenderness, deformities, or effusions noted on gross inspection. EXTREMITIES: No cyanosis, clubbing or edema. SKIN: Inspection of the skin reveals no rashes NEUROLOGIC: Drowsy but easily arouses and oriented x 4. Strength and sensation to light touch were grossly intact x 4. Medical Decision Making Medical Decision Making [facility] Narrative: 1650: 52-year-old male with history and clinical presentation of history of alcohol use though he reported to me that he has not been consuming any alcohol, patient also endorse that he took an Ambien prior to presentation. I reviewed all investigations and hematologic indices are chronically stable without leukocytosis or left shift, there is no thrombocytopenia and under is a chronically stable normocytic anemia. Coagulation studies are within normal limits. Chemistry indices do not demonstrate an NAOMI and there is no electrolyte or liver enzyme abnormalities, high sensitivity troponin is undetectable and given that patient's chest pain has been ongoing since yesterday and there are no acute EKG changes I have no clinical suspicion for ACS. In contrast, patient is noted to have UDS positive for cocaine which may likely be the source of his discomfort but again troponin and EKG are without significant changes and patient has already taken an Ambien. Urinalysis is positive for UTI and patient will be treated accordingly and discharged home on remaining course of antibiotics. As mentioned previously urine toxicology is positive for benzos (likely the Ambien) as well as cocaine. Patient received 1 g of Rocephin here in the emergency room and then be discharged on remaining course. Differential Diagnosis Differential Diagnoses: The differential diagnosis associated with the presentation includes Please see the discussion above Admission/Observation Consideration of admission/observation: Escalation of care including admission/observation considered Please see the discussion above Lab Data [facility] Lab Attestation statement: I reviewed the patient's lab results. Please see the discussion above 02/22/23 16:22 02/22/23 16:22 Labs: Lab Results 02/22/23 02/22/23 Range/Units 16:22 16:41 WBC 9.0 (4.8-10.8) X10*3/uL RBC 3.97 L (4.60-5.80) X10*6/uL Hgb 11.5 L (14.0-18.0) g/dl Hct 34.9 L (42.0-52.0) % MCV 87.9 (80.0-98.0) fL MCH 29.0 (27.0-33.0) pg MCHC 33.0 (31.0-36.0) g/dl RDW 14.8 (11.0-16.0) % Plt Count 233 (160-400) X10*3/uL MPV 9.2 L (9.4-12.4) fL Immature Gran % (Auto) 0.4 (0.0-0.4) % Neut % (Auto) 55.6 (45-73) % Lymph % (Auto) 31.0 (20-40) % [place] % (Auto) 7.1 (2-11) % Eos % (Auto) 5.2 H (0-4) % Baso % (Auto) 0.7 (0-2) % Lymph # (Auto) 2.8 (1.2-4.9) X10*3/uL [place] # (Auto) 0.6 (0.1-1.2) X10*3/uL Eos # (Auto) 0.5 H (0.0-0.4) X10*3/uL Baso # (Auto) 0.1 (0.0-0.2) X10*3/uL Abs Immat Gran (auto) 0.04 H (0.00-0.03) X10*3/uL Absolute Neuts (auto) 5.0 (2.0-8.3) x10*3/uL Absolute Nucleated RBC 0.000 (0.0-0.012) X10*3/uL Nucleated RBC % (auto) 0.0 (0.0-0.2) /100WBC PT 11.9 (11.1-13.3) SEC INR 1.0 (0.9-1.1) Sodium 137 (135-145) mmol/L Potassium 4.3 (3.3-5.1) mmol/L Chloride 101 (96-108) mmol/L Carbon Dioxide 28 (22-29) mmol/L Anion Gap 12 (12-20) BUN 16 (9-16) mg/dL Creatinine 1.00 (0.5-1.4) mg/dL Estim Creat Clear Calc 79.3 Estimated GFR > 60 Random Glucose 98 (60-115) mg/dL Calcium 8.7 D (8.4-10.2) mg/dL Total Bilirubin 0.1 (0.0-1.0) mg/dL AST 23 (5-37) U/L ALT 16 (0-40) U/L Alkaline Phosphatase 71 (39-117) U/L Total Creatine Kinase 103 (38-174) U/L Troponin I High Sens < 2.7 (<3.5-35.0) ng/L Total Protein 7.1 (6.5-8.0) g/dL Albumin 3.9 (3.5-5.0) g/dL Lipase 12 (8-78) U/L Urine Color Yellow Urine Appearance Clear Urine pH 6.0 (5.0-9.0) Ur Specific [place] 1.010 (1.005-1.025) Urine Protein Negative (Neg-Trace) mg/dL Urine Glucose (UA) Negative (Negative) mg/dL Urine Ketones Negative (Negative) mg/dL Urine Blood Negative (Negative) Urine Nitrite Negative (Negative) Ur Leukocyte Esterase Large (3+) H (Negative) Urine RBC 0-2 (0-2) /HPF Urine WBC 11-20 H (0-5) /HPF Ur Squamous Epith Cells 0-2 (0-2) /HPF Urine Bacteria None Seen (None Seen) Hyaline Casts 0-2 (0-2) /LPF Urine Opiates Screen Not Detected (Not Detect) Urine Fentanyl Screen Not Detected (Not Detect) Ur Barbiturates Screen Not Detected (Not Detect) Ur Phencyclidine Scrn Not Detected (Not Detect) Ur Amphetamines Screen Not Detected (Not Detect) U Benzodiazepines Scrn POSITIVE H (Not Detect) Urine Cocaine Screen POSITIVE H (Not Detect) U Marijuana (THC) Screen Not Detected (Not Detect) Ethyl Alcohol < 10 mg/dL Independent Interpretation I performed an independent interpretation of an: EKG Interpretation: Sinus bradycardia, HR -58, no STEMI, ME/QRS/QTC is within normal limits. There are no acute changes when compared to prior EKG on 02/03/2023. External Record Review External record reviewed: Outpatient record, Prior outpatient labs and Prior outpatient radiology Chronic Conditions Patient?s care impacted by: Hypertension and Other Cocaine use Social Determinants Patient?s care significantly limited by Social Determinants of Health including: Alcoholism and drug addiction in family Critical Care Time Critical Care Time Critical Care Time: Yes Total Critical Care Time: 30 Attestation: I personally attest to this time spent taking care of the patient. Discharge Plan Discharge Clinical Impression: Cocaine use disorder, Atypical chest pain, Acute UTI Patient Disposition: Home, Self-Care Instructions: Urinary Tract Infection in Men (ED), Cocaine Abuse (ED) Additional Instructions: 1. Reanudar todos los medicamentos caseros seg?n lo recetado. Complete todo el ciclo de antibi?ticos seg?n lo prescrito. 2. Julianna de consumir coca?na. 3. Seguimiento con el proveedor de atenci?n primaria en los pr?ximos 1 o 2 d?as. Regrese a la mariel de emergencias si los s?ntomas empeoran. 1. Resume all home medications as prescribed. Complete the entire course of antibiotics as prescribed. 2. Stop using cocaine. 3. Follow-up with primary care provider in the next 1-2 days. Return to the ER for any worsening symptoms. Prescriptions: New cefdinir 300 mg capsule 300 mg PO BID 7 Days Qty: 14 0RF No Action bethanechol chloride 50 mg tablet 50 mg PO BID 90 Days Qty: 180 1RF ondansetron 4 mg tablet,disintegrating 4 mg PO Q6-8H PRN (Reason: nausea and vomiting) Qty: 10 0RF metformin 500 mg Tablet Extended Release 24 Hr 500 mg PO DAILY atenolol 25 mg Tablet 25 mg PO DAILY amitriptyline 100 mg Tablet 125 mg PO BEDTIME cholecalciferol (vitamin D3) [Vitamin D3] 25 mcg (1,000 unit) Tablet 25 mcg PO DAILY clonidine HCl 0.2 mg Tablet 0.2 mg PO BID melatonin 10 mg Tablet 10 mg PO BEDTIME terazosin 5 mg Capsule 5 mg PO BEDTIME buprenorphine-naloxone [Suboxone] 2-0.5 mg film 1 film buccal DAILY Qty: 6 0RF Rx Instructions: place 1 strip/tab under (each) side of tongue mirtazapine 30 mg tablet 30 mg PO BEDTIME zolpidem 10 mg tablet 12.5 mg PO BEDTIME PRN (Reason: Insomnia) Vitamin D (with calcium) 1 tab PO DAILY Rx Instructions: unknown dose, OTC nicotine 14 mg/24 hr Patch 24 Hour 14 mg transdermal DAILY 28 Days Qty: 28 0RF divalproex 250 mg Tablet,Delayed Release (Dr/Ec) 750 mg PO BID 30 Days Qty: 180 0RF olanzapine 10 mg Tablet 20 mg PO BEDTIME 30 Days Qty: 60 0RF docusate sodium 100 mg Capsule 100 mg PO BID 30 Days Qty: 60 0RF ondansetron 4 mg tablet,disintegrating 4 mg PO Q8H PRN (Reason: nausea and vomiting) Qty: 20 0RF omeprazole 20 mg tablet,delayed release (DR/EC) 20 mg PO DAILY Qty: 14 0RF ondansetron 4 mg tablet,disintegrating 4 mg PO Q8H PRN (Reason: nausea and vomiting) Qty: 20 0RF hydroxyzine HCl 50 mg tablet 50 mg PO QID PRN (Reason: anxiety) Print Language: Kinyarwanda
[2023-02-22 16:56] LABS: Troponin-I High Sensitivity < 2.7 ng/L (<3.5-35.0)
[2023-02-22] MEDS: cefTRIAXone sodium 1 GM in 0.9 % Sodium Chloride 50 ML IV (18:21)
== END 2023-02-22 19:19 | disposition home or self-care (01) ==
PROVIDERS: Emergency Provider Student in an Organized Health Care Education/Training Program
DX: R20.2 Paresthesia of skin (principal); M79.605 Pain in left leg; N39.0 Urinary tract infection, site not specified; R07.89 Other chest pain; F14.10 Cocaine abuse, uncomplicated; F17.210 Nicotine dependence, cigarettes, uncomplicated; Z71.6 Tobacco abuse counseling; Z79.899 Other long term (current) drug therapy
CPT/HCPCS: 36415; 80053; 80307; 81001; 82550; 83690; 84484; 85025; 85610; 87086; 93005; 96365; 99284; J0696

== ENCOUNTER 2023-03-03 07:43 | Emergency (ER) | payer MEDICAID, SELFPAY ==
[2023-03-03 07:48] VITALS: BP 122/78; BP 134/78; PULSE 76; PULSE 81; RESP 16; TEMP 36.2; O2SAT 96; O2SAT 97; BMI 26.7
== END 2023-03-03 09:47 | disposition left against medical advice (07) ==
PROVIDERS: Emergency Provider Emergency Medicine
DX: M79.10 Myalgia, unspecified site (principal)
CPT/HCPCS: 99281

== ENCOUNTER 2023-03-17 10:06 | Outpatient (REF) | payer MEDICAID, SELFPAY ==
[2023-03-17 12:28] LABS: TSH reflex Free T4 0.48 uIU/mL (0.32-4.0)
[2023-03-18 07:48] LABS: Triiodothyronine T3 Total 127 ng/dL (76-181)
[2023-03-18 11:29] LABS: Thyroglobulin Antibodies <1 IU/mL (< or = 1)
== END 2023-03-17 10:07 | disposition home or self-care (01) ==
LOC: HO.HHCL 10:06
PROVIDERS: Visit Provider Nurse Practitioner Family
DX: R53.1 Weakness (principal); R63.4 Abnormal weight loss; K59.00 Constipation, unspecified
CPT/HCPCS: 36415; 84443; 84480; 86800

== ENCOUNTER 2023-03-19 05:46 | Emergency (ER) | payer MEDICAID, SELFPAY ==
--- NOTE | ~2023-03-19 | XR_ITS ---
EXAMINATION: XR ABDOMEN KUB CLINICAL INDICATION: Constipation COMPARISON: KUB of 08/20/2020, selected images of the abdomen and pelvic CT of from 07/01/2021 TECHNIQUE: AP view of the abdomen. FINDINGS: Moderate stool burden is noted in the distal ascending colon, transverse colon and descending colon. No evidence of abnormal bowel dilatation or bowel obstruction. Posterior lumbar fusion hardware at L3-L4 with intervertebral disc spacer in place body demonstrated. No radiographic evidence of radiopaque urinary tract calculi. Surgical clips projecting over the right pelvis are redemonstrated. XR/XR KUB IMPRESSION: Moderate stool burden in the colon as described above, without evidence of abnormal bowel dilatation or bowel obstruction.
[2023-03-19 06:06] VITALS: BP 134/80; BP 148/92; PULSE 75; PULSE 84; RESP 16; TEMP 36.8; O2SAT 97; BMI 25.8
[2023-03-19 06:22] VITALS: BP 134/92; PULSE 76; RESP 18; TEMP 36.9; O2SAT 97
[2023-03-19 06:22] LABS: MANUAL DIFF FLAG NO
[2023-03-19 06:23] LABS: Basophils Percent Auto 0.5 % (0-2); Eosinophils Absolute Auto 0.3 X10*3/uL (0.0-0.4); Eosinophils Percent Auto 4.6 % (0-4); Hematocrit 39.1 % (42.0-52.0); Hemoglobin 12.7 g/dl (14.0-18.0); Imm Gran Abs Auto 0.02 X10*3/uL (0.00-0.03); Imm Gran Pct Auto 0.3 % (0.0-0.4); Lymphocytes Absolute Auto 1.7 X10*3/uL (1.2-4.9); Lymphocytes Percent Auto 25.1 % (20-40); Mean Corpuscular HGB Conc 32.5 g/dl (31.0-36.0); Mean Corpuscular Hemoglobin 28.1 pg (27.0-33.0); Mean Corpuscular Volume 86.5 fL (80.0-98.0); Mean Platelet Volume 9.2 fL (9.4-12.4); Monocytes Absolute Auto 0.4 X10*3/uL (0.1-1.2); Monocytes Percent Auto 6.2 % (2-11); Neutrophils Absolute Auto 4.2 x10*3/uL (2.0-8.3); Neutrophils Percent Auto 63.3 % (45-73); Platelet Count 238 X10*3/uL (160-400); Red Blood Count 4.52 X10*6/uL (4.60-5.80); Red Cell Distribution Width 15.2 % (11.0-16.0); White Blood Count 6.6 X10*3/uL (4.8-10.8)
[2023-03-19 06:42] LABS: Alanine Aminotransferase 16 U/L (0-40); Albumin Level 4.1 g/dL (3.5-5.0); Alkaline Phosphatase 80 U/L (39-117); Anion Gap 13 (12-20); Aspartate Amino Transferase 23 U/L (5-37); Bilirubin Total 0.2 mg/dL (0.0-1.0); Blood Urea Nitrogen 8 mg/dL (9-16); Calcium 9.5 mg/dL (8.4-10.2); Carbon Dioxide 26 mmol/L (22-29); Chloride 101 mmol/L (96-108); Creatinine Clr Calc Pharmacy 80.7; Estimated Glomerular Filt Rate > 60; Glucose Random 171 mg/dL (60-115); Potassium 3.7 mmol/L (3.3-5.1); Sodium 136 mmol/L (135-145); Total Protein 7.8 g/dL (6.5-8.0)
--- NOTE | 2023-03-19 06:42 | PC.NURSE ---
pt biba from home reporting 6 days of constipation. pt reports having last bowel movement 6 days ago that was diarrhea. pt reports episodes of nausea with no vomiting. pt reports abdominal pain. pt abdomen soft but tender to touch in the upper right and left quadrants. pt noted to have hypoactive bowel sounds in all 4 quadrants. IV access established and labs obtained.
[2023-03-19] MEDS: polyethylene glycoL 3350 17 GM POWD.PACK PO (07:53)
[2023-03-19] MEDS: Docusate Sodium 100 MG CAPSULE PO (07:54)
[2023-03-19 08:40] VITALS: BP 115/73; PULSE 72; RESP 18; O2SAT 97
--- NOTE | 2023-03-19 08:51 | ED.GENADULT ---
HPI - General Adult General Chief complaint: Abdominal Pain Stated complaint: constipation Time Seen by Provider: 03/19/23 06:47 Source: patient Mode of arrival: ambulatory Limitations: no limitations History of Present Illness HPI narrative: This is a 52-year-old male presenting with nausea, vomiting, abdominal pain, constipation x6 days. Patient reports he has been taking MiraLax at home with little to no relief. He reports diffuse abdominal pain and intermittent nausea and vomiting he did have an episode of nausea this morning he states. Patient has a history of a hernia repair Patient denies fevers, chills, chest pain, shortness of breath, headache, vision changes, dizziness and weakness. Related Data Home Medications Medication Instructions Recorded Confirmed hydroxyzine HCl 50 mg tablet 50 mg PO QID PRN anxiety 03/03/22 09/23/22 amitriptyline 100 mg tablet 125 mg PO BEDTIME 07/11/22 09/23/22 atenolol 25 mg tablet 25 mg PO DAILY 07/11/22 09/23/22 cholecalciferol (vitamin D3) 25 25 mcg PO DAILY 07/11/22 09/23/22 mcg (1,000 unit) tablet (Vitamin D3) clonidine HCl 0.2 mg tablet 0.2 mg PO BID 07/11/22 09/23/22 melatonin 10 mg tablet 10 mg PO BEDTIME 07/11/22 09/23/22 metformin 500 mg tablet,extended 500 mg PO DAILY 07/11/22 09/23/22 release 24 hr terazosin 5 mg capsule 5 mg PO BEDTIME 07/11/22 09/23/22 Vitamin D (with calcium) 1 tab PO DAILY 09/23/22 09/23/22 mirtazapine 30 mg tablet 30 mg PO BEDTIME 09/23/22 09/23/22 zolpidem 10 mg tablet 12.5 mg PO BEDTIME PRN Insomnia 09/23/22 09/23/22 Previous Rx's Medication Instructions Recorded buprenorphine 2 mg-naloxone 0.5 mg 1 film buccal DAILY #6 ea 07/18/22 sublingual film (Suboxone) bethanechol chloride 50 mg tablet 50 mg PO BID 90 days #180 tabs 08/22/22 divalproex 250 mg tablet,delayed 750 mg (3 x 250 mg) PO BID 30 days 09/29/22 release #180 tabs docusate sodium 100 mg capsule 100 mg PO BID 30 days #60 caps 09/29/22 nicotine 14 mg/24 hr daily 14 mg transdermal DAILY 28 days 09/29/22 transdermal patch #28 ea olanzapine 10 mg tablet 20 mg (2 x 10 mg) PO BEDTIME 30 09/29/22 days #60 tabs omeprazole 20 mg tablet,delayed 20 mg PO DAILY #14 tabs 10/01/22 release ondansetron 4 mg disintegrating 4 mg PO Q8H PRN nausea and 10/01/22 tablet vomiting #20 tabs ondansetron 4 mg disintegrating 4 mg PO Q6-8H PRN nausea and 10/08/22 tablet vomiting #10 tabs ondansetron 4 mg disintegrating 4 mg PO Q8H PRN nausea and 10/18/22 tablet vomiting #20 tabs cefdinir 300 mg capsule 300 mg PO BID 7 days #14 caps 02/22/23 docusate sodium 100 mg capsule 100 mg PO BID #20 caps 03/19/23 (Colace) polyethylene glycol 3350 17 17 g PO BID #238 grams 03/19/23 gram/dose oral powder (Miralax) sennosides 8.6 mg tablet (senna) 8.6 mg PO BEDTIME #14 tabs 03/19/23 Allergies Allergy/AdvReac Type Severity Reaction Status Date / Time trazodone [TRAZODONE] Allergy Severe FACIAL Verified 03/19/23 06:06 SWELLING, swelling cat dander [CATS] Allergy Intermediate FACIAL Verified 03/19/23 06:06 ITCHING doxepin [DOXEPIN] Allergy Intermediate WEIGHT Verified 03/19/23 06:06 GAIN/LEG SWELLING Iodinated Contrast Media Allergy Intermediate ITCHING Verified 03/19/23 06:06 [IV DYE, IODINE CONTAINING CONTRAST ] nitroglycerin [NITROGLYCERIN] Allergy Unknown UNKNOWN Verified 03/19/23 06:06 tramadol [TRAMADOL] Allergy Unknown UNKNOWN, Verified 03/19/23 06:06 dry mouth ibuprofen [From MOTRIN] AdvReac Intermediate GI UPSET Verified 03/19/23 06:06 quetiapine [From SEROQUEL] AdvReac Intermediate FACIAL Verified 03/19/23 06:06 SWELLING aspirin [ASPIRIN] AdvReac Mild Stomach Verified 03/19/23 06:06 Upset Ibuprofen Allergy Unknown stomach Uncoded 03/19/23 06:06 ache IV contrast Allergy Unknown Unknown Uncoded 03/19/23 06:06 Motrin Allergy Unknown stomach Uncoded 03/19/23 06:06 pain Review of Systems Review of Systems: Constitutional : No Weight loss, No Fever, No Chills, No Fatigue, No Malaise ENT/Mouth : No sore throat, No Rhinorrhea Eyes: No Eye Pain, No Swelling, No Redness Cardiovascular : No Chest Pain, No SOB, No Dyspnea on Exertion, No Orthopnea, No Edema, No Palpitations Respiratory : No Cough, No Sputum, No Wheezing Gastrointestinal : + Nausea, + Vomiting, No Diarrhea, + Constipation, + abdominal Pain, No Hematochezia, No Melena Genitourinary : No Dysuria, No Urinary Frequency, No Hematuria, Musculoskeletal : No joint pain, No Myalgias, No Joint Swelling Skin : No Skin Lesions, No rash Neuro : No Weakness, No Numbness, No Dizziness, No Headache Psych : No Anxiety/Panic, No Depression All other systems reviewed and are negative Yes all other systems are reviewed and are negative [facility] Past Medical History Attestation statement: The following information was validated with the patient. Source: old records reviewed and nursing notes reviewed 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 GERD (gastroesophageal reflux disease) Anxiety Surgical History History of colonoscopy History of cystoscopy H/O umbilical hernia repair Family History Family History Father HTN (hypertension) Diabetes Mother HTN (hypertension) Stroke Alzheimer disease Heart disease Social History Social History Household Members: None Housing: Apartment Do you presently have visiting nurse or other home services: Yes Alcohol intake: former Comment: 1:1 sitter Patient Tobacco Use Status: Current everyday Tobacco user Tobacco use type: Cigarette Cigarette Packs Per Day: 1 Cigarettes Per Day: 20.0 Years Smoked: 9 Smoked in Last 30 Days: Yes e-Cigarette/Vaping Use: Never Used Second Hand Smoke Exposure: Yes Use of substances other than those prescribed or required for medical reasons: No Substance Use Type: Heroin and Opiates Advance Directives: Yes Advance Directives on File: Yes Advance Directives Date on File: 02/14/20 service: No Current occupational status: unemployed and disabled Sexual orientation: Straight/Heterosexual Physical Exam ED Vital Signs: Vital Signs - 24 hr 03/19/23 06:06 03/19/23 06:22 03/19/23 08:40 Temperature 98.2 F 98.4 F Pulse Rate 75 76 72 Respiratory Rate 16 18 18 Blood Pressure 134/80 134/92 H 115/73 Pulse Oximetry 97 97 97 Oxygen Delivery Method Room Air Room Air Room Air BMI result Body Mass Index 25.8 vss Appearance: Alert.? Oriented X3.? No acute distress.? Head: Normocephalic, atraumatic, no step-offs or deformities Eyes: Pupils equal, round and reactive to light.? ENT: Pharynx normal.? Neck: Normal inspection.? Neck supple.? CVS: Normal heart rate and rhythm.? Pulses normal.? Respiratory: No respiratory distress.? Breath sounds normal.? Abdomen: Soft and + diffuse tenderness w/ normal active bowel sounds .? Skin: Skin warm and dry.? Normal skin color.? Normal skin turgor.? Extremities: No lower extremity edema.? No calf ttp. 5/5 strength to bilateral upper and lower extremities Neuro: Oriented X 3.? No motor deficit.? No sensory deficit. CN 2-12 intact Course Reevaluation(s) Reevaluation #1: CBC unremarkable appears to be at patient's baseline with a normocytic anemia. Chemistry no acute findings requiring intervention. KUB moderate stool burden in the colon. No evidence of abnormal bowel dilation or bowel obstruction. Will wait for stool softeners to take in effect. Time: 08:59 Reevaluation #2: Patient had a bowel movment feels much better. Would like to go home. Educated patient on diagnosis and treatment plan, answered all question, patient verbalizes understanding. At this time patient will be discharged home, advised to return with new or worsening symptoms. Educated on worrisome signs and symptoms and when to return. At this time I feel comfortable discharge home. Time: 11:36 Medications Administered Discontinued Medications Generic Name Dose Route Start Last Admin Trade Name Freq PRN Reason Stop Dose Admin Docusate Sodium 100 mg 03/19/23 07:18 03/19/23 07:54 Docusate Sodium 100 Mg Capsule PO 03/19/23 07:19 100 mg ONCE ONE Administration Polyethylene Glycol 17 gm 03/19/23 07:19 03/19/23 07:53 Polyethylene Glycol 3350 17 Gm Powd.Pack PO 03/19/23 07:20 17 gm ONCE ONE Administration Senna 15 ml 03/19/23 07:18 03/19/23 07:53 Senna Leyner Extract Oral Syrup 15 Ml Syrup PO 03/19/23 07:19 15 ml ONCE ONE Administration Medical Decision Making Medical Decision Making [facility] Narrative: 0857 52-year-old male presents with nausea, vomiting, abdominal pain, constipation time 6 days Physical exam diffuse abdominal tenderness. Normoactive bowel sounds throughout. Patient appears comfortable. This is likely slow motility/constipation. Unlikely obstruction, acute abdomen, cauda equina, cord compression. Plan at this time KUB, stool softeners and soapsuds enema. Differential Diagnosis Differential Diagnoses: The differential diagnosis associated with the presentation includes This is likely slow motility/constipation. Unlikely obstruction, acute abdomen, cauda equina, cord compression. Admission/Observation Consideration of admission/observation: Escalation of care including admission/observation considered Unlikely Lab Data 03/19/23 06:17 03/19/23 06:17 Labs: Lab Results 03/19/23 Range/Units 06:17 WBC 6.6 (4.8-10.8) X10*3/uL RBC 4.52 L (4.60-5.80) X10*6/uL Hgb 12.7 L (14.0-18.0) g/dl Hct 39.1 L (42.0-52.0) % MCV 86.5 (80.0-98.0) fL MCH 28.1 (27.0-33.0) pg MCHC 32.5 (31.0-36.0) g/dl RDW 15.2 (11.0-16.0) % Plt Count 238 (160-400) X10*3/uL MPV 9.2 L (9.4-12.4) fL Immature Gran % (Auto) 0.3 (0.0-0.4) % Neut % (Auto) 63.3 (45-73) % Lymph % (Auto) 25.1 (20-40) % Guthrie % (Auto) 6.2 (2-11) % Eos % (Auto) 4.6 H (0-4) % Baso % (Auto) 0.5 (0-2) % Lymph # (Auto) 1.7 (1.2-4.9) X10*3/uL Guthrie # (Auto) 0.4 (0.1-1.2) X10*3/uL Eos # (Auto) 0.3 (0.0-0.4) X10*3/uL Baso # (Auto) 0.0 (0.0-0.2) X10*3/uL Abs Immat Gran (auto) 0.02 (0.00-0.03) X10*3/uL Absolute Neuts (auto) 4.2 (2.0-8.3) x10*3/uL Absolute Nucleated RBC 0.000 (0.0-0.012) X10*3/uL Nucleated RBC % (auto) 0.0 (0.0-0.2) /100WBC Sodium 136 (135-145) mmol/L Potassium 3.7 (3.3-5.1) mmol/L Chloride 101 (96-108) mmol/L Carbon Dioxide 26 (22-29) mmol/L Anion Gap 13 (12-20) BUN 8 L (9-16) mg/dL Creatinine 0.91 (0.5-1.4) mg/dL Estim Creat Clear Calc 80.7 Estimated GFR > 60 Random Glucose 171 H (60-115) mg/dL Calcium 9.5 D (8.4-10.2) mg/dL Total Bilirubin 0.2 (0.0-1.0) mg/dL AST 23 (5-37) U/L ALT 16 (0-40) U/L Alkaline Phosphatase 80 (39-117) U/L Total Protein 7.8 (6.5-8.0) g/dL Albumin 4.1 (3.5-5.0) g/dL Lipase 10 (8-78) U/L Independent Interpretation I performed an independent interpretation of an: Plain X-Ray Radiology Impression Discussion of test interpretation with radiology: I have reviewed the radiologist's reading. Discharge Plan Discharge Clinical Impression: Constipation Patient Disposition: Home, Self-Care Instructions: Constipation (ED) Additional Instructions: Take your medications as prescribed. If you were prescribed antibiotics today, it is important that you take your medication to their entirety, do not skip any doses, do not finish them early. Follow-up with your primary care provider this week. Return to the emergency department with new or worsening symptoms. Such as fevers, chills, chest pain, shortness of breath, nausea, vomiting, dizziness, headache, vision changes, lethargy In case of emergency call 911 Prescriptions: New sennosides [senna] 8.6 mg tablet 8.6 mg PO BEDTIME Qty: 14 0RF docusate sodium [Colace] 100 mg capsule 100 mg PO BID Qty: 20 0RF polyethylene glycol 3350 [Miralax] 17 gram/dose powder 17 g PO BID Qty: 238 0RF No Action bethanechol chloride 50 mg tablet 50 mg PO BID 90 Days Qty: 180 1RF ondansetron 4 mg tablet,disintegrating 4 mg PO Q6-8H PRN (Reason: nausea and vomiting) Qty: 10 0RF cefdinir 300 mg capsule 300 mg PO BID 7 Days Qty: 14 0RF metformin 500 mg Tablet Extended Release 24 Hr 500 mg PO DAILY atenolol 25 mg Tablet 25 mg PO DAILY amitriptyline 100 mg Tablet 125 mg PO BEDTIME cholecalciferol (vitamin D3) [Vitamin D3] 25 mcg (1,000 unit) Tablet 25 mcg PO DAILY clonidine HCl 0.2 mg Tablet 0.2 mg PO BID melatonin 10 mg Tablet 10 mg PO BEDTIME terazosin 5 mg Capsule 5 mg PO BEDTIME buprenorphine-naloxone [Suboxone] 2-0.5 mg film 1 film buccal DAILY Qty: 6 0RF Rx Instructions: place 1 strip/tab under (each) side of tongue mirtazapine 30 mg tablet 30 mg PO BEDTIME zolpidem 10 mg tablet 12.5 mg PO BEDTIME PRN (Reason: Insomnia) Vitamin D (with calcium) 1 tab PO DAILY Rx Instructions: unknown dose, OTC nicotine 14 mg/24 hr Patch 24 Hour 14 mg transdermal DAILY 28 Days Qty: 28 0RF divalproex 250 mg Tablet,Delayed Release (Dr/Ec) 750 mg PO BID 30 Days Qty: 180 0RF olanzapine 10 mg Tablet 20 mg PO BEDTIME 30 Days Qty: 60 0RF docusate sodium 100 mg Capsule 100 mg PO BID 30 Days Qty: 60 0RF ondansetron 4 mg tablet,disintegrating 4 mg PO Q8H PRN (Reason: nausea and vomiting) Qty: 20 0RF omeprazole 20 mg tablet,delayed release (DR/EC) 20 mg PO DAILY Qty: 14 0RF ondansetron 4 mg tablet,disintegrating 4 mg PO Q8H PRN (Reason: nausea and vomiting) Qty: 20 0RF hydroxyzine HCl 50 mg tablet 50 mg PO QID PRN (Reason: anxiety) Referrals: Patrick Ly MD [Primary Care Provider] - 2 days
[2023-03-19 09:24] LABS: Lipase 10 U/L (8-78)
== END 2023-03-19 11:58 | disposition home or self-care (01) ==
PROVIDERS: Physician Assistant; Emergency Provider Student in an Organized Health Care Education/Training Program; PCP Internal Medicine
DX: K59.00 Constipation, unspecified (principal); R11.2 Nausea with vomiting, unspecified; F17.200 Nicotine dependence, unspecified, uncomplicated; Z71.6 Tobacco abuse counseling; Z79.899 Other long term (current) drug therapy
CPT/HCPCS: 36415; 74018; 80053; 83690; 85025; 99284

== ENCOUNTER 2023-03-23 07:13 | Emergency (ER) | payer MEDICAID, SELFPAY ==
--- NOTE | ~2023-03-23 | XR_ITS ---
EXAMINATION: XR HAND, RIGHT CLINICAL INFORMATION: Right hand pain, swelling, redness. Dog bite. COMPARISON: None available. TECHNIQUE: PA, lateral, and oblique views of the right hand. FINDINGS: No acute fracture or dislocation. No joint space narrowing or marginal osteophytes. No osseous erosion. Normal carpal alignment. No abnormal soft tissue calcification. No radiopaque foreign body. XR/XR hand RT min 3V IMPRESSION: No acute osseous abnormality. No radiopaque foreign body.
[2023-03-23 07:17] VITALS: BP 152/92; PULSE 93; O2SAT 98
[2023-03-23 07:19] VITALS: BP 113/71; PULSE 78; RESP 20; TEMP 36.4; O2SAT 95; BMI 26.6
[2023-03-23] MEDS: Acetaminophen 325 MG TABLET 975 MG PO (11:20)
--- NOTE | 2023-03-23 11:59 | PC.NURSE ---
dog bite form faxed to [place] [employer]
--- NOTE | 2023-03-23 12:25 | ED.GENADULT ---
HPI - General Adult General Chief complaint: Extremity Problem Stated complaint: DOGBITE TO HAND,T-1 PER EMS Time Seen by Provider: 03/23/23 10:01 History of Present Illness HPI narrative: Patient was bit by a dog yesterday, he does not know the dog the dog bit him on the right-hand, it hurts , there was a small abrasion yesterday but no wound visible today, but the hand does hurt He denies fever or chills he denies any other injury he denies any numbness or weakness, no tingling Related Data Home Medications Medication Instructions Recorded Confirmed hydroxyzine HCl 50 mg tablet 50 mg PO QID PRN anxiety 03/03/22 09/23/22 amitriptyline 100 mg tablet 125 mg PO BEDTIME 07/11/22 09/23/22 atenolol 25 mg tablet 25 mg PO DAILY 07/11/22 09/23/22 cholecalciferol (vitamin D3) 25 25 mcg PO DAILY 07/11/22 09/23/22 mcg (1,000 unit) tablet (Vitamin D3) clonidine HCl 0.2 mg tablet 0.2 mg PO BID 07/11/22 09/23/22 melatonin 10 mg tablet 10 mg PO BEDTIME 07/11/22 09/23/22 metformin 500 mg tablet,extended 500 mg PO DAILY 07/11/22 09/23/22 release 24 hr terazosin 5 mg capsule 5 mg PO BEDTIME 07/11/22 09/23/22 Vitamin D (with calcium) 1 tab PO DAILY 09/23/22 09/23/22 mirtazapine 30 mg tablet 30 mg PO BEDTIME 09/23/22 09/23/22 zolpidem 10 mg tablet 12.5 mg PO BEDTIME PRN Insomnia 09/23/22 09/23/22 Previous Rx's Medication Instructions Recorded buprenorphine 2 mg-naloxone 0.5 mg 1 film buccal DAILY #6 ea 07/18/22 sublingual film (Suboxone) bethanechol chloride 50 mg tablet 50 mg PO BID 90 days #180 tabs 08/22/22 divalproex 250 mg tablet,delayed 750 mg (3 x 250 mg) PO BID 30 days 09/29/22 release #180 tabs docusate sodium 100 mg capsule 100 mg PO BID 30 days #60 caps 09/29/22 nicotine 14 mg/24 hr daily 14 mg transdermal DAILY 28 days 09/29/22 transdermal patch #28 ea olanzapine 10 mg tablet 20 mg (2 x 10 mg) PO BEDTIME 30 09/29/22 days #60 tabs omeprazole 20 mg tablet,delayed 20 mg PO DAILY #14 tabs 10/01/22 release ondansetron 4 mg disintegrating 4 mg PO Q8H PRN nausea and 10/01/22 tablet vomiting #20 tabs ondansetron 4 mg disintegrating 4 mg PO Q6-8H PRN nausea and 10/08/22 tablet vomiting #10 tabs ondansetron 4 mg disintegrating 4 mg PO Q8H PRN nausea and 10/18/22 tablet vomiting #20 tabs cefdinir 300 mg capsule 300 mg PO BID 7 days #14 caps 02/22/23 docusate sodium 100 mg capsule 100 mg PO BID #20 caps 03/19/23 (Colace) polyethylene glycol 3350 17 17 g PO BID #238 grams 03/19/23 gram/dose oral powder (Miralax) sennosides 8.6 mg tablet (senna) 8.6 mg PO BEDTIME #14 tabs 03/19/23 acetaminophen 500 mg tablet 1,000 mg (2 x 500 mg) PO QID PRN 03/23/23 pain #30 tabs amoxicillin 875 mg-potassium 1 tab PO BID 3 days #6 tabs 03/23/23 clavulanate 125 mg tablet oxycodone 5 mg tablet 5 mg PO Q6H PRN pain #5 tabs 03/23/23 Allergies Allergy/AdvReac Type Severity Reaction Status Date / Time trazodone [TRAZODONE] Allergy Severe FACIAL Verified 03/23/23 13:14 SWELLING, swelling cat dander [CATS] Allergy Intermediate FACIAL Verified 03/23/23 13:14 ITCHING doxepin [DOXEPIN] Allergy Intermediate WEIGHT Verified 03/23/23 13:14 GAIN/LEG SWELLING Iodinated Contrast Media Allergy Intermediate ITCHING Verified 03/23/23 13:14 [IV DYE, IODINE CONTAINING CONTRAST ] nitroglycerin [NITROGLYCERIN] Allergy Unknown UNKNOWN Verified 03/23/23 13:14 tramadol [TRAMADOL] Allergy Unknown UNKNOWN, Verified 03/23/23 13:14 dry mouth ibuprofen [From MOTRIN] AdvReac Intermediate GI UPSET Verified 03/23/23 13:14 quetiapine [From SEROQUEL] AdvReac Intermediate FACIAL Verified 03/23/23 13:14 SWELLING aspirin [ASPIRIN] AdvReac Mild Stomach Verified 03/23/23 13:14 Upset Ibuprofen Allergy Unknown stomach Uncoded 03/23/23 13:14 ache IV contrast Allergy Unknown Unknown Uncoded 03/23/23 13:14 Motrin Allergy Unknown stomach Uncoded 03/23/23 13:14 pain PMFSH Past Medical History Source: nursing notes reviewed 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 GERD (gastroesophageal reflux disease) Anxiety Surgical History History of colonoscopy History of cystoscopy H/O umbilical hernia repair Family History Family History Father HTN (hypertension) Diabetes Mother HTN (hypertension) Stroke Alzheimer disease Heart disease Social History Social History (System 03/23/23 @ 13:14 by Odessa Alvarado) Household Members: None Housing: Apartment Do you presently have visiting nurse or other home services: Yes Alcohol intake: former Comment: 1:1 sitter Patient Tobacco Use Status: Current everyday Tobacco user Tobacco use type: Cigarette Cigarette Packs Per Day: 1 Cigarettes Per Day: 20.0 Years Smoked: 9 e-Cigarette/Vaping Use: Never Used Second Hand Smoke Exposure: Yes Substance Use Type: Heroin and Opiates Advance Directives: No Advance Directives Information Provided: No Advance Directives Date on File: 02/14/20 service: No Current occupational status: unemployed and disabled Sexual orientation: Straight/Heterosexual Physical Exam ED Vital Signs: Vital Signs - 24 hr 03/23/23 07:19 Temperature 97.6 F Pulse Rate 78 Respiratory Rate 20 Blood Pressure 113/71 Pulse Oximetry 95 Oxygen Delivery Method Room Air BMI result Body Mass Index 26.6 General appearance no distress Head is normocephalic atraumatic Neck is supple Respiratory no distress Extremities full range of motion x4 including right hand There is some ecchymosis over thenar eminence of right hand and some minor swelling, there is a small puncture wound on palm, there is no laceration there is no skin avulsion There is full range of motion in all fingers, there is some tenderness over the thenar eminence, neurovascular intact distal Other extremities normal Course Course Course Narrative: the dog is a stray cannot be monitored to initiate rabies immunizations so patient will be immunized for rabies, he is given a tetanus shot 3 day prophylactic antibiotic X-ray was negative There is a small puncture wound in the hand neurovascular distal all intact, no tendon deficit, just a small punctate puncture wound, no sign of infection now but there is some ecchymosis Patient was discharged with brief period of observation after his rabies shots Medications Administered Discontinued Medications Generic Name Dose Route Start Last Admin Trade Name Freq PRN Reason Stop Dose Admin Acetaminophen 975 mg 03/23/23 11:06 03/23/23 11:20 Acetaminophen 325 Mg Tablet PO 03/23/23 11:07 975 mg ONCE ONE Administration Amoxicillin/Clavulanate Potassium 875 mg 03/23/23 12:33 03/23/23 13:27 Amoxicillin/Potassium Clav 875 Mg Tablet PO 03/23/23 12:34 875 mg ONCE ONE Administration Diphtheria/Tetanus/Acell Pertussis 0.5 ml 03/23/23 12:33 03/23/23 13:58 Diphth,Pertus(Acell),Tet Adult 0.5 Ml Syringe IM 03/23/23 12:34 0.5 ml .ONCE ONE Administration Rabies Immune Globulin 1,451.5 unit 03/23/23 12:41 03/23/23 14:02 Rabies Immune Globulin/Pf 900 Unit/3 Ml Vial 20 unit/kg (1451.5 unit) 03/23/23 12:42 1,451.5 unit IM Administration ONCE ONE Rabies Vaccine Human Diploid Cell 1 ml 03/23/23 12:41 03/23/23 14:01 Rabies Vaccine, Human Diploid (Imovax) 1 Ml Vial IM 03/23/23 12:42 1 ml .ONCE ONE Administration Discharge Plan Discharge Clinical Impression: Dog bite Patient Disposition: Home, Self-Care Additional Instructions: You got a tetanus shot today as well as 1st doses of rabies prevention medication Use Augmentin antibiotic for 3 days to prevent infection Return March 26 for 1st rabies shot, March 30 for the 2nd 1 and April 06 for the 3rd shot Return to the ER any time for spreading redness pain swelling discharge from wound any sign of infection any worse condition or any concerns X-ray of the hand was normal Prescriptions: New amoxicillin-pot clavulanate 875-125 mg tablet 1 tab PO BID 3 Days Qty: 6 0RF acetaminophen 500 mg tablet 1,000 mg PO QID PRN (Reason: pain) Qty: 30 0RF oxycodone 5 mg tablet 5 mg PO Q6H PRN (Reason: pain) Qty: 5 0RF Rx Instructions: Partial Fill upon patient request. No Action bethanechol chloride 50 mg tablet 50 mg PO BID 90 Days Qty: 180 1RF ondansetron 4 mg tablet,disintegrating 4 mg PO Q6-8H PRN (Reason: nausea and vomiting) Qty: 10 0RF cefdinir 300 mg capsule 300 mg PO BID 7 Days Qty: 14 0RF metformin 500 mg Tablet Extended Release 24 Hr 500 mg PO DAILY atenolol 25 mg Tablet 25 mg PO DAILY amitriptyline 100 mg Tablet 125 mg PO BEDTIME cholecalciferol (vitamin D3) [Vitamin D3] 25 mcg (1,000 unit) Tablet 25 mcg PO DAILY clonidine HCl 0.2 mg Tablet 0.2 mg PO BID melatonin 10 mg Tablet 10 mg PO BEDTIME terazosin 5 mg Capsule 5 mg PO BEDTIME buprenorphine-naloxone [Suboxone] 2-0.5 mg film 1 film buccal DAILY Qty: 6 0RF Rx Instructions: place 1 strip/tab under (each) side of tongue mirtazapine 30 mg tablet 30 mg PO BEDTIME zolpidem 10 mg tablet 12.5 mg PO BEDTIME PRN (Reason: Insomnia) Vitamin D (with calcium) 1 tab PO DAILY Rx Instructions: unknown dose, OTC nicotine 14 mg/24 hr Patch 24 Hour 14 mg transdermal DAILY 28 Days Qty: 28 0RF divalproex 250 mg Tablet,Delayed Release (Dr/Ec) 750 mg PO BID 30 Days Qty: 180 0RF olanzapine 10 mg Tablet 20 mg PO BEDTIME 30 Days Qty: 60 0RF docusate sodium 100 mg Capsule 100 mg PO BID 30 Days Qty: 60 0RF ondansetron 4 mg tablet,disintegrating 4 mg PO Q8H PRN (Reason: nausea and vomiting) Qty: 20 0RF omeprazole 20 mg tablet,delayed release (DR/EC) 20 mg PO DAILY Qty: 14 0RF ondansetron 4 mg tablet,disintegrating 4 mg PO Q8H PRN (Reason: nausea and vomiting) Qty: 20 0RF sennosides [senna] 8.6 mg tablet 8.6 mg PO BEDTIME Qty: 14 0RF docusate sodium [Colace] 100 mg capsule 100 mg PO BID Qty: 20 0RF polyethylene glycol 3350 [Miralax] 17 gram/dose powder 17 g PO BID Qty: 238 0RF hydroxyzine HCl 50 mg tablet 50 mg PO QID PRN (Reason: anxiety)
[2023-03-23] MEDS: Amoxicillin/Potassium Clav 875 MG TABLET PO (13:27)
[2023-03-23] MEDS: Diphth,Pertus(ACell),Tet Adult 0.5 ML SYRINGE IM (13:58)
[2023-03-23] MEDS: Rabies Vaccine, Human Diploid (Imovax) 1 ML VIAL IM (14:01)
[2023-03-23] MEDS: Rabies Immune Globulin/PF 900 UNIT/3 ML VIAL 1451.5 UNIT IM (14:02)
[2023-03-23 15:00] VITALS: BP 120/73; PULSE 62; RESP 16; TEMP 36.8; O2SAT 99
== END 2023-03-23 15:17 | disposition home or self-care (01) ==
PROVIDERS: Emergency Provider Emergency Medicine; PCP Internal Medicine
DX: S61.451A Open bite of right hand, initial encounter (principal); W54.0XXA Bitten by dog, initial encounter; Y93.9 Activity, unspecified; Y92.410 Unspecified street and highway as the place of occurrence of the external cause; Y99.9 Unspecified external cause status; Z20.3 Contact with and (suspected) exposure to rabies
CPT/HCPCS: 73130; 90375; 90471; 90472; 90675; 90715; 96372; 99284

== ENCOUNTER 2023-03-24 09:25 | Outpatient (REF) | payer MEDICAID, SELFPAY ==
[2023-03-26 21:58] LABS: Antibody to SS-A Antigen <1.0 NEG AI (<1.0 NEG); Antibody to SS-B Antigen <1.0 NEG AI (<1.0 NEG)
== END 2023-03-24 09:26 | disposition home or self-care (01) ==
LOC: HO.HHCL 09:25
PROVIDERS: Visit Provider Internal Medicine
DX: R68.2 Dry mouth, unspecified (principal)
CPT/HCPCS: 36415; 86235

== ENCOUNTER 2023-03-30 12:57 | Emergency (ER) | payer MEDICAID, SELFPAY ==
--- NOTE | ~2023-03-30 | XR_ITS ---
EXAMINATION: XR CHEST CLINICAL INFORMATION: Chest pain COMPARISON: None available. TECHNIQUE: 2 views of the chest were obtained. FINDINGS: No significant abnormality is noted involving the heart, lungs, mediastinum, bony thorax or soft tissues. XR/XR chest 2V IMPRESSION: Unremarkable chest examination.
[2023-03-30 13:00] VITALS: BP 144/92; PULSE 123; O2SAT 98
[2023-03-30 13:03] VITALS: BP 143/96; PULSE 112; RESP 16; TEMP 37.1; O2SAT 98; BMI 27.5
--- NOTE | 2023-03-30 13:26 | ECG_ITS ---
Test Reason : CHEST PAIN Blood Pressure : / mmHG Vent. Rate : 110 BPM Atrial Rate : 110 BPM P-R Int : 144 ms QRS Dur : 076 ms QT Int : 314 ms P-R-T Axes : 025 007 068 degrees QTc Int : 424 ms Sinus tachycardia Moderate voltage criteria for LVH, may be normal variant ( R in aVL , Sokolow-Pickering ) Nonspecific T wave abnormality Abnormal ECG When compared with ECG of 22-FEB-2023 15:38, Vent. rate has increased BY 52 BPM Nonspecific T wave abnormality now evident in Lateral leads Referred By: Will Chaudhary Electronically Signed By:VIKI PINEDO
--- NOTE | 2023-03-30 13:29 | ED_ITS ---
HPI - General Adult General Chief complaint: Arrhythmia/Palpitations Stated complaint: CHEST PAIN PER EMS Time Seen by Provider: 03/30/23 13:19 History of Present Illness HPI narrative: Patient is a 53-year-old male with a history of substance use disorder says that he has had left-sided chest pain and left arm pain since yesterday. Says he also feels dizzy and somewhat short of breath. He also feels that his heart is going fast of the usual. Says he has not had these symptoms before. Related Data Home Medications Medication Instructions Recorded Confirmed hydroxyzine HCl 50 mg tablet 50 mg PO QID PRN anxiety 03/03/22 09/23/22 amitriptyline 100 mg tablet 125 mg PO BEDTIME 07/11/22 09/23/22 atenolol 25 mg tablet 25 mg PO DAILY 07/11/22 09/23/22 cholecalciferol (vitamin D3) 25 25 mcg PO DAILY 07/11/22 09/23/22 mcg (1,000 unit) tablet (Vitamin D3) clonidine HCl 0.2 mg tablet 0.2 mg PO BID 07/11/22 09/23/22 melatonin 10 mg tablet 10 mg PO BEDTIME 07/11/22 09/23/22 metformin 500 mg tablet,extended 500 mg PO DAILY 07/11/22 09/23/22 release 24 hr terazosin 5 mg capsule 5 mg PO BEDTIME 07/11/22 09/23/22 Vitamin D (with calcium) 1 tab PO DAILY 09/23/22 09/23/22 mirtazapine 30 mg tablet 30 mg PO BEDTIME 09/23/22 09/23/22 zolpidem 10 mg tablet 12.5 mg PO BEDTIME PRN Insomnia 09/23/22 09/23/22 Previous Rx's Medication Instructions Recorded buprenorphine 2 mg-naloxone 0.5 mg 1 film buccal DAILY #6 ea 07/18/22 sublingual film (Suboxone) bethanechol chloride 50 mg tablet 50 mg PO BID 90 days #180 tabs 08/22/22 divalproex 250 mg tablet,delayed 750 mg (3 x 250 mg) PO BID 30 days 09/29/22 release #180 tabs docusate sodium 100 mg capsule 100 mg PO BID 30 days #60 caps 09/29/22 nicotine 14 mg/24 hr daily 14 mg transdermal DAILY 28 days 09/29/22 transdermal patch #28 ea olanzapine 10 mg tablet 20 mg (2 x 10 mg) PO BEDTIME 30 09/29/22 days #60 tabs omeprazole 20 mg tablet,delayed 20 mg PO DAILY #14 tabs 10/01/22 release ondansetron 4 mg disintegrating 4 mg PO Q8H PRN nausea and 10/01/22 tablet vomiting #20 tabs ondansetron 4 mg disintegrating 4 mg PO Q6-8H PRN nausea and 10/08/22 tablet vomiting #10 tabs ondansetron 4 mg disintegrating 4 mg PO Q8H PRN nausea and 10/18/22 tablet vomiting #20 tabs cefdinir 300 mg capsule 300 mg PO BID 7 days #14 caps 02/22/23 docusate sodium 100 mg capsule 100 mg PO BID #20 caps 03/19/23 (Colace) polyethylene glycol 3350 17 17 g PO BID #238 grams 03/19/23 gram/dose oral powder (Miralax) sennosides 8.6 mg tablet (senna) 8.6 mg PO BEDTIME #14 tabs 03/19/23 acetaminophen 500 mg tablet 1,000 mg (2 x 500 mg) PO QID PRN 03/23/23 pain #30 tabs amoxicillin 875 mg-potassium 1 tab PO BID 3 days #6 tabs 03/23/23 clavulanate 125 mg tablet oxycodone 5 mg tablet 5 mg PO Q6H PRN pain #5 tabs 03/23/23 nirmatrelvir 300 mg (150 mg See Rx Instructions PO .COMPLEX 03/30/23 x2)-ritonavir 100 mg tablet,dose #30 ea pack (Paxlovid) Allergies Allergy/AdvReac Type Severity Reaction Status Date / Time trazodone [TRAZODONE] Allergy Severe FACIAL Verified 03/23/23 13:14 SWELLING, swelling cat dander [CATS] Allergy Intermediate FACIAL Verified 03/23/23 13:14 ITCHING doxepin [DOXEPIN] Allergy Intermediate WEIGHT Verified 03/23/23 13:14 GAIN/LEG SWELLING Iodinated Contrast Media Allergy Intermediate ITCHING Verified 03/23/23 13:14 [IV DYE, IODINE CONTAINING CONTRAST ] nitroglycerin [NITROGLYCERIN] Allergy Unknown UNKNOWN Verified 03/23/23 13:14 tramadol [TRAMADOL] Allergy Unknown UNKNOWN, Verified 03/23/23 13:14 dry mouth ibuprofen [From MOTRIN] AdvReac Intermediate GI UPSET Verified 03/23/23 13:14 quetiapine [From SEROQUEL] AdvReac Intermediate FACIAL Verified 03/23/23 13:14 SWELLING aspirin [ASPIRIN] AdvReac Mild Stomach Verified 03/23/23 13:14 Upset Ibuprofen Allergy Unknown stomach Uncoded 03/23/23 13:14 ache IV contrast Allergy Unknown Unknown Uncoded 03/23/23 13:14 Motrin Allergy Unknown stomach Uncoded 03/23/23 13:14 pain Review of Systems 2 Review of Systems: Yes all other systems are reviewed and are negative [facility] Past Medical History 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 GERD (gastroesophageal reflux disease) Anxiety Surgical History History of colonoscopy History of cystoscopy H/O umbilical hernia repair Family History Family History Father HTN (hypertension) Diabetes Mother HTN (hypertension) Stroke Alzheimer disease Heart disease Social History Social History (System 03/23/23 @ 13:14 by Odessa Alvarado) Household Members: None Housing: Apartment Do you presently have visiting nurse or other home services: Yes Alcohol intake: former Comment: 1:1 sitter Patient Tobacco Use Status: Current everyday Tobacco user Tobacco use type: Cigarette Cigarette Packs Per Day: 1 Cigarettes Per Day: 20.0 Years Smoked: 9 e-Cigarette/Vaping Use: Never Used Second Hand Smoke Exposure: Yes Substance Use Type: Heroin and Opiates Advance Directives: Yes Advance Directives on File: Yes Advance Directives Date on File: 02/14/20 service: No Current occupational status: unemployed and disabled Sexual orientation: Straight/Heterosexual Physical Exam ED Vital Signs: Vital Signs - 24 hr 03/30/23 13:03 03/30/23 15:52 Temperature 98.7 F 98.6 F Pulse Rate 112 H 97 Respiratory Rate 16 16 Blood Pressure 143/96 H 129/78 Pulse Oximetry 98 98 Oxygen Delivery Method Room Air Room Air BMI result Body Mass Index 27.5 Const Other: The patient is awake and alert. He does not appear in overt distress. He looks somewhat chronically ill. HENMT Other: Face symmetrical, mucous membranes moist. Eyes Other: Pupils are round equal, conjunctivae clear Neck Other: No JVD. Resp Other: Breath sounds are clear and equal. Cardio Other: The patient was tachycardic. He had a regular rate and rhythm with no murmur GI Other: Requesting tenderness without rebound or guarding. The rest the abdomen seemed nontender. Skin Other: Skin is dry and unremarkable. Neuro Other: The patient is awake and alert. He seems oriented and appropriate. Mental status is normal. Cranial nerves are grossly intact. He moves all 4 extremities symmetrically. He seems grossly neurologically intact. Extrem Other: No calf swelling or tenderness. No leg asymmetry. Medications Administered Discontinued Medications Generic Name Dose Route Start Last Admin Trade Name Freq PRN Reason Stop Dose Admin Acetaminophen 975 mg 03/30/23 14:59 03/30/23 15:09 Acetaminophen 325 Mg Tablet PO 03/30/23 15:00 975 mg ONCE ONE Administration Sodium Chloride 1,000 mls @ 999 mls/hr 03/30/23 13:30 03/30/23 13:59 Ns IV 03/30/23 14:30 999 mls/hr .Q1H1M JAMES Administration Morphine Sulfate 15 mg 03/30/23 14:59 03/30/23 15:09 Morphine Sulfate Immed Release 15 Mg Tablet PO 03/30/23 15:00 15 mg ONCE ONE Administration Medical Decision Making Medical Decision Making [facility] Narrative: The patient is a 53-year-old male who comes to the emergency room complaining of left-sided chest pain. He was somewhat tachycardic. He did not look critically ill however. He has had symptoms consistently for approximately 24 hours. Therefore I think a single undetectable troponin rules out an acute coronary syndrome in this case. Additionally given his tachycardia and his chest pain a D-dimer was sent was normal. Additionally a viral swab was sent and he has tested positive for COVID. Other labs are all quite reassuring. His chest x-ray is unremarkable. I think the patient has COVID but does not seem to have any other significant process. I reviewed the patient's medication list with him. He takes to raises in which I think is the only medication which has a significant interaction with Paxlovid. He will therefore be advised to not take this medication while on Paxlovid. I have sent prescription for this medication to the pharmacy at the [facility] which he normally uses. He said he would not have transportation to get any other pharmacy. He will therefore have to start this medication tomorrow morning as today is [place] and any other more local pharmacy is closed. Lab Data 03/30/23 13:57 03/30/23 13:57 Labs: Lab Results 03/30/23 03/30/23 Range/Units 13:57 13:58 WBC 3.8 L (4.8-10.8) X10*3/uL RBC 5.03 (4.60-5.80) X10*6/uL Hgb 14.5 (14.0-18.0) g/dl Hct 42.6 (42.0-52.0) % MCV 84.7 (80.0-98.0) fL MCH 28.8 (27.0-33.0) pg MCHC 34.0 (31.0-36.0) g/dl RDW 15.1 (11.0-16.0) % Plt Count 245 (160-400) X10*3/uL MPV 9.4 (9.4-12.4) fL Immature Gran % (Auto) 0.3 (0.0-0.4) % Neut % (Auto) 59.5 (45-73) % Lymph % (Auto) 28.2 (20-40) % [place] % (Auto) 11.2 H (2-11) % Eos % (Auto) 0.5 (0-4) % Baso % (Auto) 0.3 (0-2) % Lymph # (Auto) 1.1 L (1.2-4.9) X10*3/uL [place] # (Auto) 0.4 (0.1-1.2) X10*3/uL Eos # (Auto) 0.0 (0.0-0.4) X10*3/uL Baso # (Auto) 0.0 (0.0-0.2) X10*3/uL Abs Immat Gran (auto) 0.01 (0.00-0.03) X10*3/uL Absolute Neuts (auto) 2.3 (2.0-8.3) x10*3/uL Absolute Nucleated RBC 0.000 (0.0-0.012) X10*3/uL Nucleated RBC % (auto) 0.0 (0.0-0.2) /100WBC PT 12.2 (11.1-13.3) SEC INR 1.0 (0.9-1.1) D-Dimer High Sensitivty 174 NG/ML Sodium 139 (135-145) mmol/L Potassium 3.6 (3.3-5.1) mmol/L Chloride 100 (96-108) mmol/L Carbon Dioxide 25 (22-29) mmol/L Anion Gap 18 (12-20) BUN 4 L (9-16) mg/dL Creatinine 0.91 (0.5-1.4) mg/dL Estim Creat Clear Calc 86.7 Estimated GFR > 60 Random Glucose 105 (60-115) mg/dL Calcium 10.2 D (8.4-10.2) mg/dL Magnesium 2.2 (1.6-2.6) mg/dL Total Bilirubin 0.1 (0.0-1.0) mg/dL Direct Bilirubin < 0.2 (0.0-0.5) mg/dL AST 32 (5-37) U/L ALT 20 (0-40) U/L Alkaline Phosphatase 84 (39-117) U/L Total Creatine Kinase 144 (38-174) U/L Troponin I High Sens < 2.7 (<3.5-35.0) ng/L C-Reactive Protein 1.75 H (< or = 0.50) mg/dL Total Protein 9.2 H (6.5-8.0) g/dL Albumin 4.7 (3.5-5.0) g/dL Lipase 17 (8-78) U/L Ethyl Alcohol < 10 mg/dL Influenza Type A (PCR) NEGATIVE (Negative) Influenza Type B (PCR) NEGATIVE (Negative) RSV RNA Qual (PCR) NEGATIVE (Negative) SARS-CoV-2 RNA (RT-PCR) POSITIVE A (Negative) Independent Interpretation I performed an independent interpretation of an: EKG Interpretation: EKG at 13:07 shows sinus tachycardia 110 beats per minute. There are nonspecific T-wave changes. Discharge Plan Discharge Clinical Impression: COVID-19 Patient Disposition: Home, Self-Care Instructions: COVID-19 (Coronavirus Disease 2019) (ED) Additional Instructions: You have tested positive for COVID today. I have sent a prescription for medication called Paxlovid to your pharmacy. This medication is helpful for COVID. Please pharmacy picking technician this prescription 1st thing tomorrow morning. Start taking this tomorrow morning. Take it 2 times a day for 5 days. While you take this medication you should not take your terazosin. This is a medication you take to help with urination. Not take the terazosin while on the COVID medication Paxlovid. Please follow-up soon with your regular doctor. Return to the emergency room is significantly worse. Prescriptions: New Paxlovid 300 mg (150 mg x 2)-100 mg tablets,dose pack See Rx Instructions .ROUTE .COMPLEX Qty: 30 0RF Rx Instructions: take TWO 150 mg tablets of nirmatrelvir with ONE 100 mg tablet of ritonavir twice daily for 5 days No Action bethanechol chloride 50 mg tablet 50 mg PO BID 90 Days Qty: 180 1RF ondansetron 4 mg tablet,disintegrating 4 mg PO Q6-8H PRN (Reason: nausea and vomiting) Qty: 10 0RF cefdinir 300 mg capsule 300 mg PO BID 7 Days Qty: 14 0RF metformin 500 mg Tablet Extended Release 24 Hr 500 mg PO DAILY atenolol 25 mg Tablet 25 mg PO DAILY amitriptyline 100 mg Tablet 125 mg PO BEDTIME cholecalciferol (vitamin D3) [Vitamin D3] 25 mcg (1,000 unit) Tablet 25 mcg PO DAILY clonidine HCl 0.2 mg Tablet 0.2 mg PO BID melatonin 10 mg Tablet 10 mg PO BEDTIME terazosin 5 mg Capsule 5 mg PO BEDTIME buprenorphine-naloxone [Suboxone] 2-0.5 mg film 1 film buccal DAILY Qty: 6 0RF Rx Instructions: place 1 strip/tab under (each) side of tongue mirtazapine 30 mg tablet 30 mg PO BEDTIME zolpidem 10 mg tablet 12.5 mg PO BEDTIME PRN (Reason: Insomnia) Vitamin D (with calcium) 1 tab PO DAILY Rx Instructions: unknown dose, OTC nicotine 14 mg/24 hr Patch 24 Hour 14 mg transdermal DAILY 28 Days Qty: 28 0RF divalproex 250 mg Tablet,Delayed Release (Dr/Ec) 750 mg PO BID 30 Days Qty: 180 0RF olanzapine 10 mg Tablet 20 mg PO BEDTIME 30 Days Qty: 60 0RF docusate sodium 100 mg Capsule 100 mg PO BID 30 Days Qty: 60 0RF ondansetron 4 mg tablet,disintegrating 4 mg PO Q8H PRN (Reason: nausea and vomiting) Qty: 20 0RF omeprazole 20 mg tablet,delayed release (DR/EC) 20 mg PO DAILY Qty: 14 0RF ondansetron 4 mg tablet,disintegrating 4 mg PO Q8H PRN (Reason: nausea and vomiting) Qty: 20 0RF sennosides [senna] 8.6 mg tablet 8.6 mg PO BEDTIME Qty: 14 0RF docusate sodium [Colace] 100 mg capsule 100 mg PO BID Qty: 20 0RF polyethylene glycol 3350 [Miralax] 17 gram/dose powder 17 g PO BID Qty: 238 0RF amoxicillin-pot clavulanate 875-125 mg tablet 1 tab PO BID 3 Days Qty: 6 0RF acetaminophen 500 mg tablet 1,000 mg PO QID PRN (Reason: pain) Qty: 30 0RF oxycodone 5 mg tablet 5 mg PO Q6H PRN (Reason: pain) Qty: 5 0RF Rx Instructions: Partial Fill upon patient request. hydroxyzine HCl 50 mg tablet 50 mg PO QID PRN (Reason: anxiety) Interventions: ED Discharge Assessment Last Done: 03/30/23 16:00 Discharge Date/Time: 03/30/23 16:00
[2023-03-30] MEDS: 0.9 % Sodium Chloride 1,000 ML 999 ML IV (13:59)
[2023-03-30 14:01] LABS: MANUAL DIFF FLAG NO
[2023-03-30 14:10] LABS: Basophils Percent Auto 0.3 % (0-2); Eosinophils Percent Auto 0.5 % (0-4); Hematocrit 42.6 % (42.0-52.0); Hemoglobin 14.5 g/dl (14.0-18.0); Imm Gran Abs Auto 0.01 X10*3/uL (0.00-0.03); Imm Gran Pct Auto 0.3 % (0.0-0.4); Lymphocytes Absolute Auto 1.1 X10*3/uL (1.2-4.9); Lymphocytes Percent Auto 28.2 % (20-40); Mean Corpuscular Hemoglobin 28.8 pg (27.0-33.0); Mean Corpuscular Volume 84.7 fL (80.0-98.0); Mean Platelet Volume 9.4 fL (9.4-12.4); Monocytes Absolute Auto 0.4 X10*3/uL (0.1-1.2); Monocytes Percent Auto 11.2 % (2-11); Neutrophils Absolute Auto 2.3 x10*3/uL (2.0-8.3); Neutrophils Percent Auto 59.5 % (45-73); Platelet Count 245 X10*3/uL (160-400); Red Blood Count 5.03 X10*6/uL (4.60-5.80); Red Cell Distribution Width 15.1 % (11.0-16.0); White Blood Count 3.8 X10*3/uL (4.8-10.8)
[2023-03-30 14:11] LABS: Prothrombin Time 12.2 SEC (11.1-13.3)
[2023-03-30 14:13] LABS: D Dimer High Sensitivity 174 NG/ML
[2023-03-30 14:30] LABS: Ethanol < 10 mg/dL
[2023-03-30 14:34] LABS: Alanine Aminotransferase 20 U/L (0-40); Albumin Level 4.7 g/dL (3.5-5.0); Alkaline Phosphatase 84 U/L (39-117); Anion Gap 18 (12-20); Aspartate Amino Transferase 32 U/L (5-37); Bilirubin Direct < 0.2 mg/dL (0.0-0.5); Bilirubin Total 0.1 mg/dL (0.0-1.0); Blood Urea Nitrogen 4 mg/dL (9-16); C Reactive Protein 1.75 mg/dL (< or = 0.50); Calcium 10.2 mg/dL (8.4-10.2); Carbon Dioxide 25 mmol/L (22-29); Chloride 100 mmol/L (96-108); Creatinine Clr Calc Pharmacy 86.7; Estimated Glomerular Filt Rate > 60; Glucose Random 105 mg/dL (60-115); Lipase 17 U/L (8-78); Magnesium 2.2 mg/dL (1.6-2.6); Potassium 3.6 mmol/L (3.3-5.1); Sodium 139 mmol/L (135-145); Total Protein 9.2 g/dL (6.5-8.0)
[2023-03-30 14:41] LABS: Influenza A PCR NEGATIVE (Negative); Influenza B PCR NEGATIVE (Negative); Resp Syncy Virus RNA Qual PCR NEGATIVE (Negative); SARS COV2 PCR INHOUSE POSITIVE (Negative)
[2023-03-30 14:48] LABS: Troponin-I High Sensitivity < 2.7 ng/L (<3.5-35.0)
[2023-03-30] MEDS: Acetaminophen 325 MG TABLET 975 MG PO (15:09)
[2023-03-30] MEDS: Morphine Sulfate Immed Release 15 MG TABLET PO (15:09)
[2023-03-30 15:52] VITALS: BP 129/78; PULSE 97; RESP 16; TEMP 37; O2SAT 98
--- NOTE | 2023-03-30 15:59 | PC.NURSE ---
pt medicated per MIRANDA verbalizes understandng not to take terazosin while on Paxlovid- IV removed, NAD on dc
== END 2023-03-30 16:00 | disposition home or self-care (01) ==
PROVIDERS: Emergency Provider Emergency Medicine; PCP Internal Medicine
DX: U07.1 COVID-19 (principal)
CPT/HCPCS: 0241U; 36415; 71046; 80048; 80076; 80307; 82550; 83690; 83735; 84484; 85025; 85379; 85610; 86140; 93005; 99283; 99284

== ENCOUNTER → 2023-03-30 13:26 | Outpatient (BNV) | payer MEDICAID, SELFPAY | PROVIDERS: Emergency Provider Emergency Medicine; PCP Internal Medicine; Visit Provider Internal Medicine | DX: R00.0 Tachycardia, unspecified (principal); R94.31 Abnormal electrocardiogram [ECG] [EKG] | CPT/HCPCS: 93010 ==

== ENCOUNTER 2023-04-06 15:52 | Emergency (ER) | payer MEDICAID, SELFPAY ==
[2023-04-06 15:58] VITALS: BP 120/82; PULSE 82; O2SAT 98
[2023-04-06 16:06] VITALS: BP 100/70; PULSE 60; RESP 18; TEMP 35.9; O2SAT 98; BMI 25.6
--- NOTE | 2023-04-06 17:52 | ED.URI ---
HPI - URI/Sore Throat General Chief Complaint: Upper Respiratory Symptoms Stated Complaint: COVID + 1WK AGO, STILL FEELS UNWELL.. Source: patient and EMS Mode of arrival: EMS Limitations: no limitations History of Present Illness HPI Narrative: 52 yo male with PMH of depression, GERD, dysphagia, BPH, bipolar, anemia, alcohol and opiate use disorder, anxiety here with complaints of body aches, fever, chills, vomiting, diarrhea x 1 week. patient seen here on March 30 and diagnosed with COVID. At that time they did not want to prescribe him Paxlovid due to concern for multiple medication interactions with his home medications. Patient reports that he is continuing to have nausea and vomiting unable to keep any food down. No URI symptoms. No shortness of breath or chest pain. Related Data Home Medications Medication Instructions Recorded Confirmed hydroxyzine HCl 50 mg tablet 50 mg PO QID PRN anxiety 03/03/22 09/23/22 amitriptyline 100 mg tablet 125 mg PO BEDTIME 07/11/22 09/23/22 atenolol 25 mg tablet 25 mg PO DAILY 07/11/22 09/23/22 cholecalciferol (vitamin D3) 25 25 mcg PO DAILY 07/11/22 09/23/22 mcg (1,000 unit) tablet (Vitamin D3) clonidine HCl 0.2 mg tablet 0.2 mg PO BID 07/11/22 09/23/22 melatonin 10 mg tablet 10 mg PO BEDTIME 07/11/22 09/23/22 metformin 500 mg tablet,extended 500 mg PO DAILY 07/11/22 09/23/22 release 24 hr terazosin 5 mg capsule 5 mg PO BEDTIME 07/11/22 09/23/22 Vitamin D (with calcium) 1 tab PO DAILY 09/23/22 09/23/22 mirtazapine 30 mg tablet 30 mg PO BEDTIME 09/23/22 09/23/22 zolpidem 10 mg tablet 12.5 mg PO BEDTIME PRN Insomnia 09/23/22 09/23/22 Previous Rx's Medication Instructions Recorded buprenorphine 2 mg-naloxone 0.5 mg 1 film buccal DAILY #6 ea 07/18/22 sublingual film (Suboxone) bethanechol chloride 50 mg tablet 50 mg PO BID 90 days #180 tabs 08/22/22 divalproex 250 mg tablet,delayed 750 mg (3 x 250 mg) PO BID 30 days 09/29/22 release #180 tabs docusate sodium 100 mg capsule 100 mg PO BID 30 days #60 caps 09/29/22 nicotine 14 mg/24 hr daily 14 mg transdermal DAILY 28 days 09/29/22 transdermal patch #28 ea olanzapine 10 mg tablet 20 mg (2 x 10 mg) PO BEDTIME 30 09/29/22 days #60 tabs omeprazole 20 mg tablet,delayed 20 mg PO DAILY #14 tabs 10/01/22 release ondansetron 4 mg disintegrating 4 mg PO Q8H PRN nausea and 10/01/22 tablet vomiting #20 tabs ondansetron 4 mg disintegrating 4 mg PO Q6-8H PRN nausea and 10/08/22 tablet vomiting #10 tabs ondansetron 4 mg disintegrating 4 mg PO Q8H PRN nausea and 10/18/22 tablet vomiting #20 tabs cefdinir 300 mg capsule 300 mg PO BID 7 days #14 caps 02/22/23 docusate sodium 100 mg capsule 100 mg PO BID #20 caps 03/19/23 (Colace) polyethylene glycol 3350 17 17 g PO BID #238 grams 03/19/23 gram/dose oral powder (Miralax) sennosides 8.6 mg tablet (senna) 8.6 mg PO BEDTIME #14 tabs 03/19/23 acetaminophen 500 mg tablet 1,000 mg (2 x 500 mg) PO QID PRN 03/23/23 pain #30 tabs amoxicillin 875 mg-potassium 1 tab PO BID 3 days #6 tabs 03/23/23 clavulanate 125 mg tablet oxycodone 5 mg tablet 5 mg PO Q6H PRN pain #5 tabs 03/23/23 nirmatrelvir 300 mg (150 mg See Rx Instructions PO .COMPLEX 03/30/23 x2)-ritonavir 100 mg tablet,dose #30 ea pack (Paxlovid) Allergies Allergy/AdvReac Type Severity Reaction Status Date / Time trazodone [TRAZODONE] Allergy Severe FACIAL Verified 04/06/23 16:09 SWELLING, swelling cat dander [CATS] Allergy Intermediate FACIAL Verified 04/06/23 16:09 ITCHING doxepin [DOXEPIN] Allergy Intermediate WEIGHT Verified 04/06/23 16:09 GAIN/LEG SWELLING Iodinated Contrast Media Allergy Intermediate ITCHING Verified 04/06/23 16:09 [IV DYE, IODINE CONTAINING CONTRAST ] nitroglycerin [NITROGLYCERIN] Allergy Unknown UNKNOWN Verified 04/06/23 16:09 tramadol [TRAMADOL] Allergy Unknown UNKNOWN, Verified 04/06/23 16:09 dry mouth ibuprofen [From MOTRIN] AdvReac Intermediate GI UPSET Verified 04/06/23 16:09 quetiapine [From SEROQUEL] AdvReac Intermediate FACIAL Verified 04/06/23 16:09 SWELLING aspirin [ASPIRIN] AdvReac Mild Stomach Verified 04/06/23 16:09 Upset Ibuprofen Allergy Unknown stomach Uncoded 03/23/23 13:14 ache IV contrast Allergy Unknown Unknown Uncoded 03/23/23 13:14 Motrin Allergy Unknown stomach Uncoded 03/23/23 13:14 pain PMFSH Past Medical History Onset Date is defined in the Problem List Problems that require an onset date and time if occurred within 24 hrs of arrival to the ED Aortic Dissection and Rupture; Neurologic impairment; Cardiopulmonary Arrest; Endotracheal Intubation; Insertion or Replacement of Mechanical Circulatory Assist Device 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 GERD (gastroesophageal reflux disease) Anxiety Surgical History History of colonoscopy History of cystoscopy H/O umbilical hernia repair Family History Family History Father HTN (hypertension) Diabetes Mother HTN (hypertension) Stroke Alzheimer disease Heart disease Social History Social History (System 03/23/23 @ 13:14 by Odessa Alvarado) Household Members: None Housing: Apartment Do you presently have visiting nurse or other home services: Yes Alcohol intake: former Comment: 1:1 sitter Patient Tobacco Use Status: Current everyday Tobacco user Tobacco use type: Cigarette Cigarette Packs Per Day: 1 Cigarettes Per Day: 20.0 Years Smoked: 9 e-Cigarette/Vaping Use: Never Used Second Hand Smoke Exposure: Yes Substance Use Type: Heroin and Opiates Advance Directives Date on File: 02/14/20 service: No Current occupational status: unemployed and disabled Sexual orientation: Straight/Heterosexual Physical Exam Vital Signs: Vital Signs: Last Vital Signs Temp 96.6 F L 04/06/23 16:06 Pulse 60 04/06/23 16:06 Resp 18 04/06/23 16:06 BP 100/70 04/06/23 16:06 Pulse Ox 98 04/06/23 16:06 O2 Del Method Room Air 04/06/23 16:06 BMI result Body Mass Index 25.6 Discharge Plan Discharge Prescriptions: No Action bethanechol chloride 50 mg tablet 50 mg PO BID 90 Days Qty: 180 1RF ondansetron 4 mg tablet,disintegrating 4 mg PO Q6-8H PRN (Reason: nausea and vomiting) Qty: 10 0RF cefdinir 300 mg capsule 300 mg PO BID 7 Days Qty: 14 0RF metformin 500 mg Tablet Extended Release 24 Hr 500 mg PO DAILY atenolol 25 mg Tablet 25 mg PO DAILY amitriptyline 100 mg Tablet 125 mg PO BEDTIME cholecalciferol (vitamin D3) [Vitamin D3] 25 mcg (1,000 unit) Tablet 25 mcg PO DAILY clonidine HCl 0.2 mg Tablet 0.2 mg PO BID melatonin 10 mg Tablet 10 mg PO BEDTIME terazosin 5 mg Capsule 5 mg PO BEDTIME buprenorphine-naloxone [Suboxone] 2-0.5 mg film 1 film buccal DAILY Qty: 6 0RF Rx Instructions: place 1 strip/tab under (each) side of tongue mirtazapine 30 mg tablet 30 mg PO BEDTIME zolpidem 10 mg tablet 12.5 mg PO BEDTIME PRN (Reason: Insomnia) Vitamin D (with calcium) 1 tab PO DAILY Rx Instructions: unknown dose, OTC nicotine 14 mg/24 hr Patch 24 Hour 14 mg transdermal DAILY 28 Days Qty: 28 0RF divalproex 250 mg Tablet,Delayed Release (Dr/Ec) 750 mg PO BID 30 Days Qty: 180 0RF olanzapine 10 mg Tablet 20 mg PO BEDTIME 30 Days Qty: 60 0RF docusate sodium 100 mg Capsule 100 mg PO BID 30 Days Qty: 60 0RF ondansetron 4 mg tablet,disintegrating 4 mg PO Q8H PRN (Reason: nausea and vomiting) Qty: 20 0RF omeprazole 20 mg tablet,delayed release (DR/EC) 20 mg PO DAILY Qty: 14 0RF ondansetron 4 mg tablet,disintegrating 4 mg PO Q8H PRN (Reason: nausea and vomiting) Qty: 20 0RF sennosides [senna] 8.6 mg tablet 8.6 mg PO BEDTIME Qty: 14 0RF docusate sodium [Colace] 100 mg capsule 100 mg PO BID Qty: 20 0RF polyethylene glycol 3350 [Miralax] 17 gram/dose powder 17 g PO BID Qty: 238 0RF amoxicillin-pot clavulanate 875-125 mg tablet 1 tab PO BID 3 Days Qty: 6 0RF acetaminophen 500 mg tablet 1,000 mg PO QID PRN (Reason: pain) Qty: 30 0RF oxycodone 5 mg tablet 5 mg PO Q6H PRN (Reason: pain) Qty: 5 0RF Rx Instructions: Partial Fill upon patient request. Paxlovid 300 mg (150 mg x 2)-100 mg tablets,dose pack See Rx Instructions .ROUTE .COMPLEX Qty: 30 0RF Rx Instructions: take TWO 150 mg tablets of nirmatrelvir with ONE 100 mg tablet of ritonavir twice daily for 5 days hydroxyzine HCl 50 mg tablet 50 mg PO QID PRN (Reason: anxiety)
[2023-04-06] MEDS: Ondansetron ODT 4 MG TAB.RAPDIS TRANSLINGU (17:55)
--- NOTE | 2023-04-06 17:57 | ED_ITS ---
HPI - URI/Sore Throat General Chief Complaint: Upper Respiratory Symptoms Stated Complaint: COVID + 1WK AGO, STILL FEELS UNWELL.. Time Seen by Provider: 04/06/23 21:24 Related Data Home Medications Medication Instructions Recorded Confirmed hydroxyzine HCl 50 mg tablet 50 mg PO QID PRN anxiety 03/03/22 09/23/22 amitriptyline 100 mg tablet 125 mg PO BEDTIME 07/11/22 09/23/22 atenolol 25 mg tablet 25 mg PO DAILY 07/11/22 09/23/22 cholecalciferol (vitamin D3) 25 25 mcg PO DAILY 07/11/22 09/23/22 mcg (1,000 unit) tablet (Vitamin D3) clonidine HCl 0.2 mg tablet 0.2 mg PO BID 07/11/22 09/23/22 melatonin 10 mg tablet 10 mg PO BEDTIME 07/11/22 09/23/22 metformin 500 mg tablet,extended 500 mg PO DAILY 07/11/22 09/23/22 release 24 hr terazosin 5 mg capsule 5 mg PO BEDTIME 07/11/22 09/23/22 Vitamin D (with calcium) 1 tab PO DAILY 09/23/22 09/23/22 mirtazapine 30 mg tablet 30 mg PO BEDTIME 09/23/22 09/23/22 zolpidem 10 mg tablet 12.5 mg PO BEDTIME PRN Insomnia 09/23/22 09/23/22 Previous Rx's Medication Instructions Recorded buprenorphine 2 mg-naloxone 0.5 mg 1 film buccal DAILY #6 ea 07/18/22 sublingual film (Suboxone) bethanechol chloride 50 mg tablet 50 mg PO BID 90 days #180 tabs 08/22/22 divalproex 250 mg tablet,delayed 750 mg (3 x 250 mg) PO BID 30 days 09/29/22 release #180 tabs docusate sodium 100 mg capsule 100 mg PO BID 30 days #60 caps 09/29/22 nicotine 14 mg/24 hr daily 14 mg transdermal DAILY 28 days 09/29/22 transdermal patch #28 ea olanzapine 10 mg tablet 20 mg (2 x 10 mg) PO BEDTIME 30 09/29/22 days #60 tabs omeprazole 20 mg tablet,delayed 20 mg PO DAILY #14 tabs 10/01/22 release ondansetron 4 mg disintegrating 4 mg PO Q8H PRN nausea and 10/01/22 tablet vomiting #20 tabs ondansetron 4 mg disintegrating 4 mg PO Q6-8H PRN nausea and 10/08/22 tablet vomiting #10 tabs ondansetron 4 mg disintegrating 4 mg PO Q8H PRN nausea and 10/18/22 tablet vomiting #20 tabs cefdinir 300 mg capsule 300 mg PO BID 7 days #14 caps 02/22/23 docusate sodium 100 mg capsule 100 mg PO BID #20 caps 03/19/23 (Colace) polyethylene glycol 3350 17 17 g PO BID #238 grams 03/19/23 gram/dose oral powder (Miralax) sennosides 8.6 mg tablet (senna) 8.6 mg PO BEDTIME #14 tabs 03/19/23 acetaminophen 500 mg tablet 1,000 mg (2 x 500 mg) PO QID PRN 03/23/23 pain #30 tabs amoxicillin 875 mg-potassium 1 tab PO BID 3 days #6 tabs 03/23/23 clavulanate 125 mg tablet oxycodone 5 mg tablet 5 mg PO Q6H PRN pain #5 tabs 03/23/23 nirmatrelvir 300 mg (150 mg See Rx Instructions PO .COMPLEX 03/30/23 x2)-ritonavir 100 mg tablet,dose #30 ea pack (Paxlovid) Allergies Allergy/AdvReac Type Severity Reaction Status Date / Time trazodone [TRAZODONE] Allergy Severe FACIAL Verified 04/06/23 16:09 SWELLING, swelling cat dander [CATS] Allergy Intermediate FACIAL Verified 04/06/23 16:09 ITCHING doxepin [DOXEPIN] Allergy Intermediate WEIGHT Verified 04/06/23 16:09 GAIN/LEG SWELLING Iodinated Contrast Media Allergy Intermediate ITCHING Verified 04/06/23 16:09 [IV DYE, IODINE CONTAINING CONTRAST ] nitroglycerin [NITROGLYCERIN] Allergy Unknown UNKNOWN Verified 04/06/23 16:09 tramadol [TRAMADOL] Allergy Unknown UNKNOWN, Verified 04/06/23 16:09 dry mouth ibuprofen [From MOTRIN] AdvReac Intermediate GI UPSET Verified 04/06/23 16:09 quetiapine [From SEROQUEL] AdvReac Intermediate FACIAL Verified 04/06/23 16:09 SWELLING aspirin [ASPIRIN] AdvReac Mild Stomach Verified 04/06/23 16:09 Upset Ibuprofen Allergy Unknown stomach Uncoded 03/23/23 13:14 ache IV contrast Allergy Unknown Unknown Uncoded 03/23/23 13:14 Motrin Allergy Unknown stomach Uncoded 03/23/23 13:14 pain PMFSH Past Medical History Onset Date is defined in the Problem List Problems that require an onset date and time if occurred within 24 hrs of arrival to the ED Aortic Dissection and Rupture; Neurologic impairment; Cardiopulmonary Arrest; Endotracheal Intubation; Insertion or Replacement of Mechanical Circulatory Assist Device 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 GERD (gastroesophageal reflux disease) Anxiety Surgical History History of colonoscopy History of cystoscopy H/O umbilical hernia repair Family History Family History Father HTN (hypertension) Diabetes Mother HTN (hypertension) Stroke Alzheimer disease Heart disease Social History Social History (System 03/23/23 @ 13:14 by Odessa Alvarado) Household Members: None Housing: Apartment Do you presently have visiting nurse or other home services: Yes Alcohol intake: former Comment: 1:1 sitter Patient Tobacco Use Status: Current everyday Tobacco user Tobacco use type: Cigarette Cigarette Packs Per Day: 1 Cigarettes Per Day: 20.0 Years Smoked: 9 e-Cigarette/Vaping Use: Never Used Second Hand Smoke Exposure: Yes Substance Use Type: Heroin and Opiates Advance Directives: Yes Advance Directives on File: Yes Advance Directives Date on File: 02/14/20 service: No Current occupational status: unemployed and disabled Sexual orientation: Straight/Heterosexual Physical Exam 2 Vital Signs: Vital Signs: Last Vital Signs Temp 96.6 F L 04/06/23 16:06 Pulse 60 04/06/23 16:06 Resp 18 04/06/23 16:06 BP 100/70 04/06/23 16:06 Pulse Ox 98 04/06/23 16:06 O2 Del Method Room Air 04/06/23 16:06 BMI result Body Mass Index 25.6 Course Course Course Narrative: This is a rapid medical exam. Defer additional HPI, ROS, PE to prior provider. 42 yo male with PMH of depression, GERD, dysphagia, BPH, bipolar, anemia, alcohol and opiate use disorder, anxiety here with complaints of body aches, fever, chills, vomiting, diarrhea x 1 week. patient seen here on March 30 and diagnosed with COVID. At that time they did not want to prescribe him Paxlovid due to concern for multiple medication interactions with his home medications. Patient reports that he is continuing to have nausea and vomiting unable to keep any food down. No URI symptoms. No shortness of breath or chest pain. Will obtain labs, give sublingual Zofran VSS Medications Administered Discontinued Medications Generic Name Dose Route Start Last Admin Trade Name Freq PRN Reason Stop Dose Admin Ondansetron HCl 4 mg 04/06/23 17:53 04/06/23 17:55 Ondansetron Odt 4 Mg Tab.Rapdis TRANSLINGU 04/06/23 17:54 4 mg ONCE ONE Administration Medical Decision Making Lab Data 04/06/23 18:18 04/06/23 18:18 Labs: Lab Results 04/06/23 Range/Units 18:18 WBC 6.2 (4.8-10.8) X10*3/uL RBC 4.02 L D (4.60-5.80) X10*6/uL Hgb 11.6 L (14.0-18.0) g/dl Hct 34.5 L (42.0-52.0) % MCV 85.8 (80.0-98.0) fL MCH 28.9 (27.0-33.0) pg MCHC 33.6 (31.0-36.0) g/dl RDW 14.6 (11.0-16.0) % Plt Count 230 (160-400) X10*3/uL MPV 9.7 (9.4-12.4) fL Immature Gran % (Auto) 0.3 (0.0-0.4) % Neut % (Auto) 43.6 L (45-73) % Lymph % (Auto) 45.2 H (20-40) % [place] % (Auto) 6.5 (2-11) % Eos % (Auto) 3.9 (0-4) % Baso % (Auto) 0.5 (0-2) % Lymph # (Auto) 2.8 (1.2-4.9) X10*3/uL [place] # (Auto) 0.4 (0.1-1.2) X10*3/uL Eos # (Auto) 0.2 (0.0-0.4) X10*3/uL Baso # (Auto) 0.0 (0.0-0.2) X10*3/uL Abs Immat Gran (auto) 0.02 (0.00-0.03) X10*3/uL Absolute Neuts (auto) 2.7 (2.0-8.3) x10*3/uL Absolute Nucleated RBC 0.000 (0.0-0.012) X10*3/uL Nucleated RBC % (auto) 0.0 (0.0-0.2) /100WBC Sodium 140 (135-145) mmol/L Potassium 3.7 (3.3-5.1) mmol/L Chloride 106 (96-108) mmol/L Carbon Dioxide 26 (22-29) mmol/L Anion Gap 12 (12-20) BUN 5 L (9-16) mg/dL Creatinine 0.74 (0.5-1.4) mg/dL Estim Creat Clear Calc 98.1 Estimated GFR > 60 Random Glucose 102 (60-115) mg/dL Calcium 8.7 D (8.4-10.2) mg/dL Total Bilirubin 0.3 (0.0-1.0) mg/dL Direct Bilirubin 0.1 (0.0-0.5) mg/dL AST 17 (5-37) U/L ALT 14 (0-40) U/L Alkaline Phosphatase 57 (39-117) U/L Total Creatine Kinase 72 (38-174) U/L Total Protein 6.7 (6.5-8.0) g/dL Albumin 3.7 (3.5-5.0) g/dL Discharge Plan Discharge Clinical Impression: COVID-19 Patient Disposition: Left W/O Completing Treatment Prescriptions: No Action bethanechol chloride 50 mg tablet 50 mg PO BID 90 Days Qty: 180 1RF ondansetron 4 mg tablet,disintegrating 4 mg PO Q6-8H PRN (Reason: nausea and vomiting) Qty: 10 0RF cefdinir 300 mg capsule 300 mg PO BID 7 Days Qty: 14 0RF metformin 500 mg Tablet Extended Release 24 Hr 500 mg PO DAILY atenolol 25 mg Tablet 25 mg PO DAILY amitriptyline 100 mg Tablet 125 mg PO BEDTIME cholecalciferol (vitamin D3) [Vitamin D3] 25 mcg (1,000 unit) Tablet 25 mcg PO DAILY clonidine HCl 0.2 mg Tablet 0.2 mg PO BID melatonin 10 mg Tablet 10 mg PO BEDTIME terazosin 5 mg Capsule 5 mg PO BEDTIME buprenorphine-naloxone [Suboxone] 2-0.5 mg film 1 film buccal DAILY Qty: 6 0RF Rx Instructions: place 1 strip/tab under (each) side of tongue mirtazapine 30 mg tablet 30 mg PO BEDTIME zolpidem 10 mg tablet 12.5 mg PO BEDTIME PRN (Reason: Insomnia) Vitamin D (with calcium) 1 tab PO DAILY Rx Instructions: unknown dose, OTC nicotine 14 mg/24 hr Patch 24 Hour 14 mg transdermal DAILY 28 Days Qty: 28 0RF divalproex 250 mg Tablet,Delayed Release (Dr/Ec) 750 mg PO BID 30 Days Qty: 180 0RF olanzapine 10 mg Tablet 20 mg PO BEDTIME 30 Days Qty: 60 0RF docusate sodium 100 mg Capsule 100 mg PO BID 30 Days Qty: 60 0RF ondansetron 4 mg tablet,disintegrating 4 mg PO Q8H PRN (Reason: nausea and vomiting) Qty: 20 0RF omeprazole 20 mg tablet,delayed release (DR/EC) 20 mg PO DAILY Qty: 14 0RF ondansetron 4 mg tablet,disintegrating 4 mg PO Q8H PRN (Reason: nausea and vomiting) Qty: 20 0RF sennosides [senna] 8.6 mg tablet 8.6 mg PO BEDTIME Qty: 14 0RF docusate sodium [Colace] 100 mg capsule 100 mg PO BID Qty: 20 0RF polyethylene glycol 3350 [Miralax] 17 gram/dose powder 17 g PO BID Qty: 238 0RF amoxicillin-pot clavulanate 875-125 mg tablet 1 tab PO BID 3 Days Qty: 6 0RF acetaminophen 500 mg tablet 1,000 mg PO QID PRN (Reason: pain) Qty: 30 0RF oxycodone 5 mg tablet 5 mg PO Q6H PRN (Reason: pain) Qty: 5 0RF Rx Instructions: Partial Fill upon patient request. Paxlovid 300 mg (150 mg x 2)-100 mg tablets,dose pack See Rx Instructions .ROUTE .COMPLEX Qty: 30 0RF Rx Instructions: take TWO 150 mg tablets of nirmatrelvir with ONE 100 mg tablet of ritonavir twice daily for 5 days hydroxyzine HCl 50 mg tablet 50 mg PO QID PRN (Reason: anxiety) Discharge Date/Time: 04/06/23 21:41
--- NOTE | 2023-04-06 18:21 | MHC.EDTECH ---
Patient blood drawn and sent to lab .
[2023-04-06 18:24] LABS: MANUAL DIFF FLAG NO
[2023-04-06 18:28] LABS: Basophils Percent Auto 0.5 % (0-2); Eosinophils Absolute Auto 0.2 X10*3/uL (0.0-0.4); Eosinophils Percent Auto 3.9 % (0-4); Hematocrit 34.5 % (42.0-52.0); Hemoglobin 11.6 g/dl (14.0-18.0); Imm Gran Abs Auto 0.02 X10*3/uL (0.00-0.03); Imm Gran Pct Auto 0.3 % (0.0-0.4); Lymphocytes Absolute Auto 2.8 X10*3/uL (1.2-4.9); Lymphocytes Percent Auto 45.2 % (20-40); Mean Corpuscular HGB Conc 33.6 g/dl (31.0-36.0); Mean Corpuscular Hemoglobin 28.9 pg (27.0-33.0); Mean Corpuscular Volume 85.8 fL (80.0-98.0); Mean Platelet Volume 9.7 fL (9.4-12.4); Monocytes Absolute Auto 0.4 X10*3/uL (0.1-1.2); Monocytes Percent Auto 6.5 % (2-11); Neutrophils Absolute Auto 2.7 x10*3/uL (2.0-8.3); Neutrophils Percent Auto 43.6 % (45-73); Platelet Count 230 X10*3/uL (160-400); Red Blood Count 4.02 X10*6/uL (4.60-5.80); Red Cell Distribution Width 14.6 % (11.0-16.0); White Blood Count 6.2 X10*3/uL (4.8-10.8)
[2023-04-06 18:43] LABS: Alanine Aminotransferase 14 U/L (0-40); Albumin Level 3.7 g/dL (3.5-5.0); Alkaline Phosphatase 57 U/L (39-117); Anion Gap 12 (12-20); Aspartate Amino Transferase 17 U/L (5-37); Bilirubin Direct 0.1 mg/dL (0.0-0.5); Bilirubin Total 0.3 mg/dL (0.0-1.0); Blood Urea Nitrogen 5 mg/dL (9-16); Calcium 8.7 mg/dL (8.4-10.2); Carbon Dioxide 26 mmol/L (22-29); Chloride 106 mmol/L (96-108); Creatinine Clr Calc Pharmacy 98.1; Estimated Glomerular Filt Rate > 60; Glucose Random 102 mg/dL (60-115); Potassium 3.7 mmol/L (3.3-5.1); Sodium 140 mmol/L (135-145); Total Protein 6.7 g/dL (6.5-8.0)
== END 2023-04-06 21:41 | disposition left against medical advice (07) ==
PROVIDERS: Nurse Practitioner Family; Emergency Provider Emergency Medicine; PCP Internal Medicine
DX: U07.1 COVID-19 (principal); F17.210 Nicotine dependence, cigarettes, uncomplicated; Z79.899 Other long term (current) drug therapy
CPT/HCPCS: 36415; 80048; 80076; 82550; 85025; 99281; 99283

== ENCOUNTER 2023-04-30 15:03 | Emergency (ER) | payer MEDICAID, SELFPAY ==
[2023-04-30 15:18] VITALS: BP 100/60; BP 95/55; PULSE 63; PULSE 68; RESP 20; TEMP 36.2; O2SAT 97; BMI 26.2
--- NOTE | 2023-04-30 15:19 | ED.CHESTPAIN ---
HPI - Chest Pain General Chief Complaint: Chest Pain Stated Complaint: cp down l arm per ems Related Data Home Medications Medication Instructions Recorded Confirmed hydroxyzine HCl 50 mg tablet 50 mg PO QID PRN anxiety 03/03/22 09/23/22 amitriptyline 100 mg tablet 125 mg PO BEDTIME 07/11/22 09/23/22 atenolol 25 mg tablet 25 mg PO DAILY 07/11/22 09/23/22 cholecalciferol (vitamin D3) 25 25 mcg PO DAILY 07/11/22 09/23/22 mcg (1,000 unit) tablet (Vitamin D3) clonidine HCl 0.2 mg tablet 0.2 mg PO BID 07/11/22 09/23/22 melatonin 10 mg tablet 10 mg PO BEDTIME 07/11/22 09/23/22 metformin 500 mg tablet,extended 500 mg PO DAILY 07/11/22 09/23/22 release 24 hr terazosin 5 mg capsule 5 mg PO BEDTIME 07/11/22 09/23/22 Vitamin D (with calcium) 1 tab PO DAILY 09/23/22 09/23/22 mirtazapine 30 mg tablet 30 mg PO BEDTIME 09/23/22 09/23/22 zolpidem 10 mg tablet 12.5 mg PO BEDTIME PRN Insomnia 09/23/22 09/23/22 Previous Rx's Medication Instructions Recorded buprenorphine 2 mg-naloxone 0.5 mg 1 film buccal DAILY #6 ea 07/18/22 sublingual film (Suboxone) bethanechol chloride 50 mg tablet 50 mg PO BID 90 days #180 tabs 08/22/22 divalproex 250 mg tablet,delayed 750 mg (3 x 250 mg) PO BID 30 days 09/29/22 release #180 tabs docusate sodium 100 mg capsule 100 mg PO BID 30 days #60 caps 09/29/22 nicotine 14 mg/24 hr daily 14 mg transdermal DAILY 28 days 09/29/22 transdermal patch #28 ea olanzapine 10 mg tablet 20 mg (2 x 10 mg) PO BEDTIME 30 09/29/22 days #60 tabs omeprazole 20 mg tablet,delayed 20 mg PO DAILY #14 tabs 10/01/22 release ondansetron 4 mg disintegrating 4 mg PO Q8H PRN nausea and 10/01/22 tablet vomiting #20 tabs ondansetron 4 mg disintegrating 4 mg PO Q6-8H PRN nausea and 10/08/22 tablet vomiting #10 tabs ondansetron 4 mg disintegrating 4 mg PO Q8H PRN nausea and 10/18/22 tablet vomiting #20 tabs cefdinir 300 mg capsule 300 mg PO BID 7 days #14 caps 02/22/23 docusate sodium 100 mg capsule 100 mg PO BID #20 caps 03/19/23 (Colace) polyethylene glycol 3350 17 17 g PO BID #238 grams 03/19/23 gram/dose oral powder (Miralax) sennosides 8.6 mg tablet (senna) 8.6 mg PO BEDTIME #14 tabs 03/19/23 acetaminophen 500 mg tablet 1,000 mg (2 x 500 mg) PO QID PRN 03/23/23 pain #30 tabs amoxicillin 875 mg-potassium 1 tab PO BID 3 days #6 tabs 03/23/23 clavulanate 125 mg tablet oxycodone 5 mg tablet 5 mg PO Q6H PRN pain #5 tabs 03/23/23 nirmatrelvir 300 mg (150 mg See Rx Instructions PO .COMPLEX 03/30/23 x2)-ritonavir 100 mg tablet,dose #30 ea pack (Paxlovid) lorazepam 1 mg tablet (Ativan) 1 mg PO DAILY PRN anxiety #10 tabs 05/01/23 ondansetron 4 mg disintegrating 4 mg PO Q6-8H PRN nausea and 05/01/23 tablet vomiting #7 tabs Allergies Allergy/AdvReac Type Severity Reaction Status Date / Time trazodone [TRAZODONE] Allergy Severe FACIAL Verified 05/03/23 21:32 SWELLING, swelling cat dander [CATS] Allergy Intermediate FACIAL Verified 05/03/23 21:32 ITCHING doxepin [DOXEPIN] Allergy Intermediate WEIGHT Verified 05/03/23 21:32 GAIN/LEG SWELLING Iodinated Contrast Media Allergy Intermediate ITCHING Verified 05/03/23 21:32 [IV DYE, IODINE CONTAINING CONTRAST ] nitroglycerin [NITROGLYCERIN] Allergy Unknown UNKNOWN Verified 05/03/23 21:32 tramadol [TRAMADOL] Allergy Unknown UNKNOWN, Verified 05/03/23 21:32 dry mouth ibuprofen [From MOTRIN] AdvReac Intermediate GI UPSET Verified 05/03/23 21:32 quetiapine [From SEROQUEL] AdvReac Intermediate FACIAL Verified 05/03/23 21:32 SWELLING aspirin [ASPIRIN] AdvReac Mild Stomach Verified 05/03/23 21:32 Upset Ibuprofen Allergy Unknown stomach Uncoded 05/03/23 21:32 ache IV contrast Allergy Unknown Unknown Uncoded 05/03/23 21:32 Motrin Allergy Unknown stomach Uncoded 05/03/23 21:32 pain PMFSH Past Medical History 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 GERD (gastroesophageal reflux disease) Anxiety Surgical History History of colonoscopy History of cystoscopy H/O umbilical hernia repair Family History Family History Father HTN (hypertension) Diabetes Mother HTN (hypertension) Stroke Alzheimer disease Heart disease Social History Social History Household Members: None Housing: Apartment Do you presently have visiting nurse or other home services: Yes Alcohol intake: former Comment: 1:1 sitter Patient Tobacco Use Status: Current everyday Tobacco user Tobacco use type: Cigarette Cigarette Packs Per Day: 1 Cigarettes Per Day: 20.0 Years Smoked: 9 e-Cigarette/Vaping Use: Never Used Second Hand Smoke Exposure: Yes Substance Use Type: Heroin and Opiates Advance Directives: Yes Advance Directives on File: Yes Advance Directives Date on File: 02/14/20 service: No Current occupational status: unemployed and disabled Sexual orientation: Straight/Heterosexual Physical Exam Vital Signs: Vital Signs: Last Vital Signs Temp 97.1 F 04/30/23 15:18 Pulse 63 04/30/23 15:18 Resp 20 04/30/23 15:18 BP 95/55 L 04/30/23 15:18 Pulse Ox 97 04/30/23 15:18 O2 Del Method Room Air 04/30/23 15:18 BMI result Body Mass Index 26.2 Course Course Course Narrative: This is an RME: Additional HPI, ROS, PE not included below will be deferred to primary provider. 42 yo male with PMH of HTN, depression, GERD, dysphagia, BPH, bipolar, anemia, alcohol and opiate use disorder, anxiety here with complaints of chest pain since this morning. Plan: Labs, EKG, CXR Reevaluation(s) Reevaluation #1: pt left prior to completing treatment Discharge Plan Discharge Clinical Impression: Chest pain Patient Disposition: Left W/O Completing Treatment Prescriptions: No Action bethanechol chloride 50 mg tablet 50 mg PO BID 90 Days Qty: 180 1RF ondansetron 4 mg tablet,disintegrating 4 mg PO Q6-8H PRN (Reason: nausea and vomiting) Qty: 10 0RF cefdinir 300 mg capsule 300 mg PO BID 7 Days Qty: 14 0RF lorazepam [Ativan] 1 mg tablet 1 mg PO DAILY PRN (Reason: anxiety) Qty: 10 0RF ondansetron 4 mg tablet,disintegrating 4 mg PO Q6-8H PRN (Reason: nausea and vomiting) Qty: 7 0RF metformin 500 mg Tablet Extended Release 24 Hr 500 mg PO DAILY atenolol 25 mg Tablet 25 mg PO DAILY amitriptyline 100 mg Tablet 125 mg PO BEDTIME cholecalciferol (vitamin D3) [Vitamin D3] 25 mcg (1,000 unit) Tablet 25 mcg PO DAILY clonidine HCl 0.2 mg Tablet 0.2 mg PO BID melatonin 10 mg Tablet 10 mg PO BEDTIME terazosin 5 mg Capsule 5 mg PO BEDTIME buprenorphine-naloxone [Suboxone] 2-0.5 mg film 1 film buccal DAILY Qty: 6 0RF Rx Instructions: place 1 strip/tab under (each) side of tongue mirtazapine 30 mg tablet 30 mg PO BEDTIME zolpidem 10 mg tablet 12.5 mg PO BEDTIME PRN (Reason: Insomnia) Vitamin D (with calcium) 1 tab PO DAILY Rx Instructions: unknown dose, OTC nicotine 14 mg/24 hr Patch 24 Hour 14 mg transdermal DAILY 28 Days Qty: 28 0RF divalproex 250 mg Tablet,Delayed Release (Dr/Ec) 750 mg PO BID 30 Days Qty: 180 0RF olanzapine 10 mg Tablet 20 mg PO BEDTIME 30 Days Qty: 60 0RF docusate sodium 100 mg Capsule 100 mg PO BID 30 Days Qty: 60 0RF ondansetron 4 mg tablet,disintegrating 4 mg PO Q8H PRN (Reason: nausea and vomiting) Qty: 20 0RF omeprazole 20 mg tablet,delayed release (DR/EC) 20 mg PO DAILY Qty: 14 0RF ondansetron 4 mg tablet,disintegrating 4 mg PO Q8H PRN (Reason: nausea and vomiting) Qty: 20 0RF sennosides [senna] 8.6 mg tablet 8.6 mg PO BEDTIME Qty: 14 0RF docusate sodium [Colace] 100 mg capsule 100 mg PO BID Qty: 20 0RF polyethylene glycol 3350 [Miralax] 17 gram/dose powder 17 g PO BID Qty: 238 0RF amoxicillin-pot clavulanate 875-125 mg tablet 1 tab PO BID 3 Days Qty: 6 0RF acetaminophen 500 mg tablet 1,000 mg PO QID PRN (Reason: pain) Qty: 30 0RF oxycodone 5 mg tablet 5 mg PO Q6H PRN (Reason: pain) Qty: 5 0RF Rx Instructions: Partial Fill upon patient request. Paxlovid 300 mg (150 mg x 2)-100 mg tablets,dose pack See Rx Instructions .ROUTE .COMPLEX Qty: 30 0RF Rx Instructions: take TWO 150 mg tablets of nirmatrelvir with ONE 100 mg tablet of ritonavir twice daily for 5 days hydroxyzine HCl 50 mg tablet 50 mg PO QID PRN (Reason: anxiety) Interventions: MICHELEBS Worksheet Last Done: 04/30/23 16:00 Discharge Date/Time: 04/30/23 16:00
--- NOTE | 2023-04-30 15:21 | ECG_ITS ---
Test Reason : CP Blood Pressure : / mmHG Vent. Rate : 057 BPM Atrial Rate : 057 BPM P-R Int : 156 ms QRS Dur : 082 ms QT Int : 422 ms P-R-T Axes : 014 -03 023 degrees QTc Int : 410 ms Sinus bradycardia Minimal voltage criteria for LVH, may be normal variant ( R in aVL ) Borderline ECG When compared with ECG of 30-MAR-2023 13:07, Vent. rate has decreased BY 53 BPM Non-specific change in ST segment in Lateral leads Nonspecific T wave abnormality no longer evident in Lateral leads Referred By: Angélica Mayberry Electronically Signed By:Scottie Figueroa
== END 2023-04-30 16:00 | disposition left against medical advice (07) ==
PROVIDERS: Emergency Provider Emergency Medicine
DX: R07.89 Other chest pain (principal); F17.210 Nicotine dependence, cigarettes, uncomplicated; Z79.899 Other long term (current) drug therapy
CPT/HCPCS: 93005; 99283

== ENCOUNTER → 2023-04-30 15:21 | Outpatient (BNV) | payer MEDICAID, SELFPAY | PROVIDERS: Emergency Provider Emergency Medicine; Visit Provider Internal Medicine Cardiovascular Disease | DX: R07.9 Chest pain, unspecified (principal); R94.31 Abnormal electrocardiogram [ECG] [EKG]; R00.1 Bradycardia, unspecified | CPT/HCPCS: 93010 ==

== ENCOUNTER 2023-04-30 22:04 | Emergency (ER) | payer MEDICAID, SELFPAY ==
--- NOTE | 2023-04-30 | ECG_ITS ---
Test Reason : CHEST PAIN Blood Pressure : / mmHG Vent. Rate : 060 BPM Atrial Rate : 060 BPM P-R Int : 142 ms QRS Dur : 084 ms QT Int : 418 ms P-R-T Axes : 012 -04 032 degrees QTc Int : 418 ms Normal sinus rhythm Minimal voltage criteria for LVH, may be normal variant ( R in aVL ) Borderline ECG When compared with ECG of 30-APR-2023 15:34, No significant change was found Referred By: Generic ED Physician Electronically Signed By:Scottie Figueroa
[2023-04-30 22:19] VITALS: BP 101/62; PULSE 61; RESP 18; TEMP 36.5; O2SAT 97; BMI 25.5
[2023-04-30 22:37] LABS: MANUAL DIFF FLAG NO
[2023-04-30 22:39] LABS: Basophils Percent Auto 0.5 % (0-2); Eosinophils Absolute Auto 0.5 X10*3/uL (0.0-0.4); Eosinophils Percent Auto 6.1 % (0-4); Hematocrit 36.2 % (42.0-52.0); Hemoglobin 12.1 g/dl (14.0-18.0); Imm Gran Abs Auto 0.02 X10*3/uL (0.00-0.03); Imm Gran Pct Auto 0.3 % (0.0-0.4); Lymphocytes Absolute Auto 3.1 X10*3/uL (1.2-4.9); Lymphocytes Percent Auto 40.5 % (20-40); Mean Corpuscular HGB Conc 33.4 g/dl (31.0-36.0); Mean Corpuscular Volume 86.8 fL (80.0-98.0); Mean Platelet Volume 9.1 fL (9.4-12.4); Monocytes Absolute Auto 0.5 X10*3/uL (0.1-1.2); Monocytes Percent Auto 5.8 % (2-11); Neutrophils Absolute Auto 3.6 x10*3/uL (2.0-8.3); Neutrophils Percent Auto 46.8 % (45-73); Platelet Count 205 X10*3/uL (160-400); Red Blood Count 4.17 X10*6/uL (4.60-5.80); Red Cell Distribution Width 15.1 % (11.0-16.0); White Blood Count 7.7 X10*3/uL (4.8-10.8)
[2023-04-30 22:52] LABS: Alanine Aminotransferase 15 U/L (0-40); Albumin Level 3.8 g/dL (3.5-5.0); Alkaline Phosphatase 63 U/L (39-117); Anion Gap 15 (12-20); Aspartate Amino Transferase 20 U/L (5-37); Bilirubin Total 0.3 mg/dL (0.0-1.0); Blood Urea Nitrogen 10 mg/dL (9-16); Carbon Dioxide 25 mmol/L (22-29); Chloride 102 mmol/L (96-108); Creatinine Clr Calc Pharmacy 67.8; Estimated Glomerular Filt Rate > 60; Glucose Random 97 mg/dL (60-115); Potassium 3.7 mmol/L (3.3-5.1); Sodium 138 mmol/L (135-145)
[2023-04-30 23:01] LABS: Troponin-I High Sensitivity < 2.7 ng/L (<3.5-35.0)
[2023-05-01 01:58] VITALS: BP 121/65; PULSE 55; RESP 14; TEMP 36.8; O2SAT 96
--- NOTE | 2023-05-01 02:07 | ED_ITS ---
HPI - Chest Pain General Chief Complaint: Chest Pain Stated Complaint: Left AMA earlier today, chest pain, refuses aspiri Time Seen by Provider: 05/01/23 02:07 Source: patient Mode of arrival: ambulatory Limitations: no limitations History of Present Illness HPI narrative: Patient with schizoaffective disorder anxiety narcotic abuse been here multiple times for chest pain workup negative was here earlier left without treatment comes back as now he says he been vomiting for last 2 days with the chronic abdominal pain and now having chest pain patient did not mention about vomiting to the EMS Related Data Home Medications Medication Instructions Recorded Confirmed hydroxyzine HCl 50 mg tablet 50 mg PO QID PRN anxiety 03/03/22 09/23/22 amitriptyline 100 mg tablet 125 mg PO BEDTIME 07/11/22 09/23/22 atenolol 25 mg tablet 25 mg PO DAILY 07/11/22 09/23/22 cholecalciferol (vitamin D3) 25 25 mcg PO DAILY 07/11/22 09/23/22 mcg (1,000 unit) tablet (Vitamin D3) clonidine HCl 0.2 mg tablet 0.2 mg PO BID 07/11/22 09/23/22 melatonin 10 mg tablet 10 mg PO BEDTIME 07/11/22 09/23/22 metformin 500 mg tablet,extended 500 mg PO DAILY 07/11/22 09/23/22 release 24 hr terazosin 5 mg capsule 5 mg PO BEDTIME 07/11/22 09/23/22 Vitamin D (with calcium) 1 tab PO DAILY 09/23/22 09/23/22 mirtazapine 30 mg tablet 30 mg PO BEDTIME 09/23/22 09/23/22 zolpidem 10 mg tablet 12.5 mg PO BEDTIME PRN Insomnia 09/23/22 09/23/22 Previous Rx's Medication Instructions Recorded buprenorphine 2 mg-naloxone 0.5 mg 1 film buccal DAILY #6 ea 07/18/22 sublingual film (Suboxone) bethanechol chloride 50 mg tablet 50 mg PO BID 90 days #180 tabs 08/22/22 divalproex 250 mg tablet,delayed 750 mg (3 x 250 mg) PO BID 30 days 09/29/22 release #180 tabs docusate sodium 100 mg capsule 100 mg PO BID 30 days #60 caps 09/29/22 nicotine 14 mg/24 hr daily 14 mg transdermal DAILY 28 days 09/29/22 transdermal patch #28 ea olanzapine 10 mg tablet 20 mg (2 x 10 mg) PO BEDTIME 30 09/29/22 days #60 tabs omeprazole 20 mg tablet,delayed 20 mg PO DAILY #14 tabs 10/01/22 release ondansetron 4 mg disintegrating 4 mg PO Q8H PRN nausea and 10/01/22 tablet vomiting #20 tabs ondansetron 4 mg disintegrating 4 mg PO Q6-8H PRN nausea and 10/08/22 tablet vomiting #10 tabs ondansetron 4 mg disintegrating 4 mg PO Q8H PRN nausea and 10/18/22 tablet vomiting #20 tabs cefdinir 300 mg capsule 300 mg PO BID 7 days #14 caps 02/22/23 docusate sodium 100 mg capsule 100 mg PO BID #20 caps 03/19/23 (Colace) polyethylene glycol 3350 17 17 g PO BID #238 grams 03/19/23 gram/dose oral powder (Miralax) sennosides 8.6 mg tablet (senna) 8.6 mg PO BEDTIME #14 tabs 03/19/23 acetaminophen 500 mg tablet 1,000 mg (2 x 500 mg) PO QID PRN 03/23/23 pain #30 tabs amoxicillin 875 mg-potassium 1 tab PO BID 3 days #6 tabs 03/23/23 clavulanate 125 mg tablet oxycodone 5 mg tablet 5 mg PO Q6H PRN pain #5 tabs 03/23/23 nirmatrelvir 300 mg (150 mg See Rx Instructions PO .COMPLEX 03/30/23 x2)-ritonavir 100 mg tablet,dose #30 ea pack (Paxlovid) lorazepam 1 mg tablet (Ativan) 1 mg PO DAILY PRN anxiety #10 tabs 05/01/23 ondansetron 4 mg disintegrating 4 mg PO Q6-8H PRN nausea and 05/01/23 tablet vomiting #7 tabs Allergies Allergy/AdvReac Type Severity Reaction Status Date / Time trazodone [TRAZODONE] Allergy Severe FACIAL Verified 04/30/23 15:22 SWELLING, swelling cat dander [CATS] Allergy Intermediate FACIAL Verified 04/30/23 15:22 ITCHING doxepin [DOXEPIN] Allergy Intermediate WEIGHT Verified 04/30/23 15:22 GAIN/LEG SWELLING Iodinated Contrast Media Allergy Intermediate ITCHING Verified 04/30/23 15:22 [IV DYE, IODINE CONTAINING CONTRAST ] nitroglycerin [NITROGLYCERIN] Allergy Unknown UNKNOWN Verified 04/30/23 15:22 tramadol [TRAMADOL] Allergy Unknown UNKNOWN, Verified 04/30/23 15:22 dry mouth ibuprofen [From MOTRIN] AdvReac Intermediate GI UPSET Verified 04/30/23 15:22 quetiapine [From SEROQUEL] AdvReac Intermediate FACIAL Verified 04/30/23 15:22 SWELLING aspirin [ASPIRIN] AdvReac Mild Stomach Verified 04/30/23 15:22 Upset Ibuprofen Allergy Unknown stomach Uncoded 03/23/23 13:14 ache IV contrast Allergy Unknown Unknown Uncoded 03/23/23 13:14 Motrin Allergy Unknown stomach Uncoded 03/23/23 13:14 pain Review of Systems 2 Review of Systems: Yes all other systems are reviewed and are negative PMFSH Past Medical History 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 GERD (gastroesophageal reflux disease) Anxiety Surgical History History of colonoscopy History of cystoscopy H/O umbilical hernia repair Family History Family History Father HTN (hypertension) Diabetes Mother HTN (hypertension) Stroke Alzheimer disease Heart disease Social History Social History Household Members: None Housing: Apartment Do you presently have visiting nurse or other home services: Yes Alcohol intake: former Comment: 1:1 sitter Patient Tobacco Use Status: Current everyday Tobacco user Tobacco use type: Cigarette Cigarette Packs Per Day: 1 Cigarettes Per Day: 20.0 Years Smoked: 9 Smoked in Last 30 Days: Yes e-Cigarette/Vaping Use: Never Used Second Hand Smoke Exposure: Yes Use of substances other than those prescribed or required for medical reasons: No Substance Use Type: Heroin and Opiates Advance Directives: Yes Advance Directives on File: Yes Advance Directives Date on File: 02/14/20 service: No Current occupational status: unemployed and disabled Sexual orientation: Straight/Heterosexual Physical Exam 2 Vital Signs: Vital Signs: Last Vital Signs Temp 98.3 F 05/01/23 01:58 Pulse 55 05/01/23 01:58 Resp 14 05/01/23 01:58 BP 121/65 05/01/23 01:58 Pulse Ox 96 05/01/23 01:58 O2 Del Method Room Air 05/01/23 01:58 BMI result Body Mass Index 25.5 Appearance: Alert. Oriented X3. No acute distress. Anxious Eyes: PERRLA, No Nystagmus ENT: Pharynx normal. Oral Mucosa moist Neck: Normal inspection. Neck supple. CVS: Normal heart rate and rhythm. Pulses normal. Respiratory: No respiratory distress. Equal air entry bilateral, no wheezing/rales/rhonchi Abdomen: Soft , mild epigastric tenderness+. Bowel sounds are present, no mass palpable, no CVA tenderness Skin: Skin warm and dry. Normal skin color. Normal skin turgor. Extremities: No lower extremity edema. No calf tenderness Neuro: Oriented X 3. No motor deficit. Medications Administered Discontinued Medications Generic Name Dose Route Start Last Admin Trade Name Freq PRN Reason Stop Dose Admin Lorazepam 1 mg 05/01/23 02:11 05/01/23 02:18 Lorazepam 1 Mg Tablet PO 05/01/23 02:12 1 mg ONCE ONE Administration Medical Decision Making Medical Decision Making [facility] Narrative: Patient has frequent ED visits with multiple complaints asking for pain medication anxiety medication comes here for similar complaints feels more anxious says he was vomiting but did not throw up in the ER feeling much better after Ativan will discharge patient home advised to follow with PCP Lab Data [facility] Lab Attestation statement: I reviewed the patient's lab results. 04/30/23 22:34 04/30/23 22:34 Labs: Lab Results 04/30/23 Range/Units 22:34 WBC 7.7 (4.8-10.8) X10*3/uL RBC 4.17 L (4.60-5.80) X10*6/uL Hgb 12.1 L (14.0-18.0) g/dl Hct 36.2 L (42.0-52.0) % MCV 86.8 (80.0-98.0) fL MCH 29.0 (27.0-33.0) pg MCHC 33.4 (31.0-36.0) g/dl RDW 15.1 (11.0-16.0) % Plt Count 205 (160-400) X10*3/uL MPV 9.1 L (9.4-12.4) fL Immature Gran % (Auto) 0.3 (0.0-0.4) % Neut % (Auto) 46.8 (45-73) % Lymph % (Auto) 40.5 H (20-40) % Ford % (Auto) 5.8 (2-11) % Eos % (Auto) 6.1 H (0-4) % Baso % (Auto) 0.5 (0-2) % Lymph # (Auto) 3.1 (1.2-4.9) X10*3/uL Ford # (Auto) 0.5 (0.1-1.2) X10*3/uL Eos # (Auto) 0.5 H (0.0-0.4) X10*3/uL Baso # (Auto) 0.0 (0.0-0.2) X10*3/uL Abs Immat Gran (auto) 0.02 (0.00-0.03) X10*3/uL Absolute Neuts (auto) 3.6 (2.0-8.3) x10*3/uL Absolute Nucleated RBC 0.000 (0.0-0.012) X10*3/uL Nucleated RBC % (auto) 0.0 (0.0-0.2) /100WBC Sodium 138 (135-145) mmol/L Potassium 3.7 (3.3-5.1) mmol/L Chloride 102 (96-108) mmol/L Carbon Dioxide 25 (22-29) mmol/L Anion Gap 15 (12-20) BUN 10 (9-16) mg/dL Creatinine 1.07 (0.5-1.4) mg/dL Estim Creat Clear Calc 67.8 Estimated GFR > 60 Random Glucose 97 (60-115) mg/dL Calcium 9.0 (8.4-10.2) mg/dL Total Bilirubin 0.3 (0.0-1.0) mg/dL AST 20 (5-37) U/L ALT 15 (0-40) U/L Alkaline Phosphatase 63 (39-117) U/L Troponin I High Sens < 2.7 (<3.5-35.0) ng/L Total Protein 7.0 (6.5-8.0) g/dL Albumin 3.8 (3.5-5.0) g/dL Independent Interpretation I performed an independent interpretation of an: EKG Interpretation: Normal sinus rhythm heart rate 60 beats per minute normal interval normal axis no acute ST T wave changes no acute ischemia Discharge Plan Discharge Clinical Impression: Anxiety, Abdominal pain, chronic, generalized Patient Disposition: Home, Self-Care Instructions: Anxiety (ED), Chronic Abdominal Pain (ED) Additional Instructions: Continue medication as prescribed by your PCP Medicine for severe anxiety and nausea as prescribed Follow-up with PCP/therapist Prescriptions: New lorazepam [Ativan] 1 mg tablet 1 mg PO DAILY PRN (Reason: anxiety) Qty: 10 0RF ondansetron 4 mg tablet,disintegrating 4 mg PO Q6-8H PRN (Reason: nausea and vomiting) Qty: 7 0RF No Action bethanechol chloride 50 mg tablet 50 mg PO BID 90 Days Qty: 180 1RF ondansetron 4 mg tablet,disintegrating 4 mg PO Q6-8H PRN (Reason: nausea and vomiting) Qty: 10 0RF cefdinir 300 mg capsule 300 mg PO BID 7 Days Qty: 14 0RF metformin 500 mg Tablet Extended Release 24 Hr 500 mg PO DAILY atenolol 25 mg Tablet 25 mg PO DAILY amitriptyline 100 mg Tablet 125 mg PO BEDTIME cholecalciferol (vitamin D3) [Vitamin D3] 25 mcg (1,000 unit) Tablet 25 mcg PO DAILY clonidine HCl 0.2 mg Tablet 0.2 mg PO BID melatonin 10 mg Tablet 10 mg PO BEDTIME terazosin 5 mg Capsule 5 mg PO BEDTIME buprenorphine-naloxone [Suboxone] 2-0.5 mg film 1 film buccal DAILY Qty: 6 0RF Rx Instructions: place 1 strip/tab under (each) side of tongue mirtazapine 30 mg tablet 30 mg PO BEDTIME zolpidem 10 mg tablet 12.5 mg PO BEDTIME PRN (Reason: Insomnia) Vitamin D (with calcium) 1 tab PO DAILY Rx Instructions: unknown dose, OTC nicotine 14 mg/24 hr Patch 24 Hour 14 mg transdermal DAILY 28 Days Qty: 28 0RF divalproex 250 mg Tablet,Delayed Release (Dr/Ec) 750 mg PO BID 30 Days Qty: 180 0RF olanzapine 10 mg Tablet 20 mg PO BEDTIME 30 Days Qty: 60 0RF docusate sodium 100 mg Capsule 100 mg PO BID 30 Days Qty: 60 0RF ondansetron 4 mg tablet,disintegrating 4 mg PO Q8H PRN (Reason: nausea and vomiting) Qty: 20 0RF omeprazole 20 mg tablet,delayed release (DR/EC) 20 mg PO DAILY Qty: 14 0RF ondansetron 4 mg tablet,disintegrating 4 mg PO Q8H PRN (Reason: nausea and vomiting) Qty: 20 0RF sennosides [senna] 8.6 mg tablet 8.6 mg PO BEDTIME Qty: 14 0RF docusate sodium [Colace] 100 mg capsule 100 mg PO BID Qty: 20 0RF polyethylene glycol 3350 [Miralax] 17 gram/dose powder 17 g PO BID Qty: 238 0RF amoxicillin-pot clavulanate 875-125 mg tablet 1 tab PO BID 3 Days Qty: 6 0RF acetaminophen 500 mg tablet 1,000 mg PO QID PRN (Reason: pain) Qty: 30 0RF oxycodone 5 mg tablet 5 mg PO Q6H PRN (Reason: pain) Qty: 5 0RF Rx Instructions: Partial Fill upon patient request. Paxlovid 300 mg (150 mg x 2)-100 mg tablets,dose pack See Rx Instructions .ROUTE .COMPLEX Qty: 30 0RF Rx Instructions: take TWO 150 mg tablets of nirmatrelvir with ONE 100 mg tablet of ritonavir twice daily for 5 days hydroxyzine HCl 50 mg tablet 50 mg PO QID PRN (Reason: anxiety)
[2023-05-01] MEDS: LORazepam 1 MG TABLET PO (02:18)
--- NOTE | 2023-05-01 02:20 | PC.NURSE ---
pt medicated per mar, pt tolerated well with water.
--- NOTE | 2023-05-01 02:30 | PC.NURSE ---
this rn assumed care of pt. pt reporting onset of chest pain starting yesterday, midsternal radiating to the left chest. pt reports [place] [facility] being seen. pt medicated per mar, tolerates well with water.
== END 2023-05-01 03:18 | disposition home or self-care (01) ==
PROVIDERS: Emergency Provider Internal Medicine
DX: F41.9 Anxiety disorder, unspecified (principal); G89.29 Other chronic pain; R10.84 Generalized abdominal pain; Z79.899 Other long term (current) drug therapy
CPT/HCPCS: 36415; 80053; 84484; 85025; 93005; 99283; 99285

== ENCOUNTER 2023-05-01 09:44 | Outpatient (REF) | payer MEDICAID, SELFPAY ==
[2023-05-01 11:20] LABS: MANUAL DIFF FLAG NO
[2023-05-01 11:53] LABS: Basophils Absolute Auto 0.1 X10*3/uL (0.0-0.2); Basophils Percent Auto 0.9 % (0-2); Eosinophils Absolute Auto 0.3 X10*3/uL (0.0-0.4); Eosinophils Percent Auto 5.5 % (0-4); Hematocrit 38.1 % (42.0-52.0); Hemoglobin 12.3 g/dl (14.0-18.0); Lymphocytes Absolute Auto 1.6 X10*3/uL (1.2-4.9); Lymphocytes Percent Auto 28.8 % (20-40); Mean Corpuscular HGB Conc 32.3 g/dl (31.0-36.0); Mean Corpuscular Hemoglobin 28.8 pg (27.0-33.0); Mean Corpuscular Volume 89.2 fL (80.0-98.0); Mean Platelet Volume 9.5 fL (9.4-12.4); Monocytes Absolute Auto 0.3 X10*3/uL (0.1-1.2); Monocytes Percent Auto 6.1 % (2-11); Neutrophils Absolute Auto 3.3 x10*3/uL (2.0-8.3); Neutrophils Percent Auto 58.7 % (45-73); Platelet Count 232 X10*3/uL (160-400); Red Blood Count 4.27 X10*6/uL (4.60-5.80); Red Cell Distribution Width 15.3 % (11.0-16.0); White Blood Count 5.6 X10*3/uL (4.8-10.8)
[2023-05-01 12:29] LABS: HIV AB/AG Nonreactive (Nonreactive); HIV Num 1 0.05 S/CO (0.00-0.99); ~HepC Num1 0.42 S/CO (0.00-0.79); ~Hepatitis C Antibody Nonreactive (Nonreactive)
[2023-05-01 12:34] LABS: Lipase 10 U/L (8-78)
[2023-05-01 12:39] LABS: Folate 10.8 ng/mL (> or = 4.0); TSH reflex Free T4 0.89 uIU/mL (0.32-4.0); Vitamin B12 448 pg/mL (200-900); Vitamin D 25-OH Total 45.6 ng/mL (>30)
[2023-05-01 12:42] LABS: Erythrocyte Sedimentation Rate 28 MM/HR (0-15)
[2023-05-01 12:49] LABS: Amylase 34 U/L (28-100)
[2023-05-04 12:13] LABS: RPR Rapid Plasma Reagin NON-REACTIVE (NON-REACTIVE)
[2023-05-06 07:54] LABS: VITAMIN D (1,25 OH) D3 43 pg/mL; Vit D (1,25-Dihydroxy) Total 43 pg/mL (18-72); Vitamin D (1,25 OH) D2 <8 pg/mL
[2023-05-11 11:24] LABS: Anti Nuclear Antibody Screen POSITIVE (NEGATIVE)
== END 2023-05-01 09:45 | disposition home or self-care (01) ==
LOC: HO.HHCL 09:44
PROVIDERS: Visit Provider Emergency Medicine
DX: Z11.4 Encounter for screening for human immunodeficiency virus [HIV] (principal); Z11.1 Encounter for screening for respiratory tuberculosis; R52 Pain, unspecified; R11.2 Nausea with vomiting, unspecified
CPT/HCPCS: 36415; 82150; 82306; 82607; 82652; 82746; 83690; 84443; 85025; 85652; 86038; 86039; 86592; 86803; 87389

== ENCOUNTER 2023-05-03 21:07 | Emergency (ER) | payer MEDICAID, SELFPAY ==
--- NOTE | 2023-05-03 21:12 | ECG_ITS ---
Test Reason : CHEST PAIN Blood Pressure : / mmHG Vent. Rate : 059 BPM Atrial Rate : 059 BPM P-R Int : 152 ms QRS Dur : 086 ms QT Int : 414 ms P-R-T Axes : 014 -03 017 degrees QTc Int : 409 ms Sinus bradycardia Minimal voltage criteria for LVH, may be normal variant ( R in aVL ) Borderline ECG When compared with ECG of 30-APR-2023 22:15, No significant change was found Referred By: Generic ED Physician Electronically Signed By:MARIE LOCKWOOD MD
[2023-05-03 21:14] VITALS: BP 148/82; PULSE 58; O2SAT 99
--- NOTE | 2023-05-03 21:21 | ED.CHESTPAIN ---
HPI - Chest Pain General Chief Complaint: Chest Pain Stated Complaint: chest pain started ysterday, down L arm w numbness Time Seen by Provider: 05/03/23 21:17 Source: patient Mode of arrival: ambulatory Limitations: no limitations History of Present Illness HPI narrative: Patient has chronic chest pain asking for narcotics been here multiple times comes here for 3 days of chest pain was seen here 2 days ago with similar complaints no history of ACS Related Data Home Medications Medication Instructions Recorded Confirmed hydroxyzine HCl 50 mg tablet 50 mg PO QID PRN anxiety 03/03/22 09/23/22 amitriptyline 100 mg tablet 125 mg PO BEDTIME 07/11/22 09/23/22 atenolol 25 mg tablet 25 mg PO DAILY 07/11/22 09/23/22 cholecalciferol (vitamin D3) 25 25 mcg PO DAILY 07/11/22 09/23/22 mcg (1,000 unit) tablet (Vitamin D3) clonidine HCl 0.2 mg tablet 0.2 mg PO BID 07/11/22 09/23/22 melatonin 10 mg tablet 10 mg PO BEDTIME 07/11/22 09/23/22 metformin 500 mg tablet,extended 500 mg PO DAILY 07/11/22 09/23/22 release 24 hr terazosin 5 mg capsule 5 mg PO BEDTIME 07/11/22 09/23/22 Vitamin D (with calcium) 1 tab PO DAILY 09/23/22 09/23/22 mirtazapine 30 mg tablet 30 mg PO BEDTIME 09/23/22 09/23/22 zolpidem 10 mg tablet 12.5 mg PO BEDTIME PRN Insomnia 09/23/22 09/23/22 Previous Rx's Medication Instructions Recorded buprenorphine 2 mg-naloxone 0.5 mg 1 film buccal DAILY #6 ea 07/18/22 sublingual film (Suboxone) bethanechol chloride 50 mg tablet 50 mg PO BID 90 days #180 tabs 08/22/22 divalproex 250 mg tablet,delayed 750 mg (3 x 250 mg) PO BID 30 days 09/29/22 release #180 tabs docusate sodium 100 mg capsule 100 mg PO BID 30 days #60 caps 09/29/22 nicotine 14 mg/24 hr daily 14 mg transdermal DAILY 28 days 09/29/22 transdermal patch #28 ea olanzapine 10 mg tablet 20 mg (2 x 10 mg) PO BEDTIME 30 09/29/22 days #60 tabs omeprazole 20 mg tablet,delayed 20 mg PO DAILY #14 tabs 10/01/22 release ondansetron 4 mg disintegrating 4 mg PO Q8H PRN nausea and 10/01/22 tablet vomiting #20 tabs ondansetron 4 mg disintegrating 4 mg PO Q6-8H PRN nausea and 10/08/22 tablet vomiting #10 tabs ondansetron 4 mg disintegrating 4 mg PO Q8H PRN nausea and 10/18/22 tablet vomiting #20 tabs cefdinir 300 mg capsule 300 mg PO BID 7 days #14 caps 02/22/23 docusate sodium 100 mg capsule 100 mg PO BID #20 caps 03/19/23 (Colace) polyethylene glycol 3350 17 17 g PO BID #238 grams 03/19/23 gram/dose oral powder (Miralax) sennosides 8.6 mg tablet (senna) 8.6 mg PO BEDTIME #14 tabs 03/19/23 acetaminophen 500 mg tablet 1,000 mg (2 x 500 mg) PO QID PRN 03/23/23 pain #30 tabs amoxicillin 875 mg-potassium 1 tab PO BID 3 days #6 tabs 03/23/23 clavulanate 125 mg tablet oxycodone 5 mg tablet 5 mg PO Q6H PRN pain #5 tabs 03/23/23 nirmatrelvir 300 mg (150 mg See Rx Instructions PO .COMPLEX 03/30/23 x2)-ritonavir 100 mg tablet,dose #30 ea pack (Paxlovid) lorazepam 1 mg tablet (Ativan) 1 mg PO DAILY PRN anxiety #10 tabs 05/01/23 ondansetron 4 mg disintegrating 4 mg PO Q6-8H PRN nausea and 05/01/23 tablet vomiting #7 tabs Allergies Allergy/AdvReac Type Severity Reaction Status Date / Time trazodone [TRAZODONE] Allergy Severe FACIAL Verified 05/03/23 21:32 SWELLING, swelling cat dander [CATS] Allergy Intermediate FACIAL Verified 05/03/23 21:32 ITCHING doxepin [DOXEPIN] Allergy Intermediate WEIGHT Verified 05/03/23 21:32 GAIN/LEG SWELLING Iodinated Contrast Media Allergy Intermediate ITCHING Verified 05/03/23 21:32 [IV DYE, IODINE CONTAINING CONTRAST ] nitroglycerin [NITROGLYCERIN] Allergy Unknown UNKNOWN Verified 05/03/23 21:32 tramadol [TRAMADOL] Allergy Unknown UNKNOWN, Verified 05/03/23 21:32 dry mouth ibuprofen [From MOTRIN] AdvReac Intermediate GI UPSET Verified 05/03/23 21:32 quetiapine [From SEROQUEL] AdvReac Intermediate FACIAL Verified 05/03/23 21:32 SWELLING aspirin [ASPIRIN] AdvReac Mild Stomach Verified 05/03/23 21:32 Upset Ibuprofen Allergy Unknown stomach Uncoded 05/03/23 21:32 ache IV contrast Allergy Unknown Unknown Uncoded 05/03/23 21:32 Motrin Allergy Unknown stomach Uncoded 05/03/23 21:32 pain Review of Systems Review of Systems: Yes all other systems are reviewed and are negative [facility] Past Medical History 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 GERD (gastroesophageal reflux disease) Anxiety Surgical History History of colonoscopy History of cystoscopy H/O umbilical hernia repair Family History Family History Father HTN (hypertension) Diabetes Mother HTN (hypertension) Stroke Alzheimer disease Heart disease Social History Social History Household Members: None Housing: Apartment Do you presently have visiting nurse or other home services: Yes Alcohol intake: former Comment: 1:1 sitter Patient Tobacco Use Status: Current everyday Tobacco user Tobacco use type: Cigarette Cigarette Packs Per Day: 1 Cigarettes Per Day: 20.0 Years Smoked: 9 e-Cigarette/Vaping Use: Never Used Second Hand Smoke Exposure: Yes Substance Use Type: Heroin and Opiates Advance Directives: Yes Advance Directives on File: Yes Advance Directives Date on File: 02/14/20 service: No Current occupational status: unemployed and disabled Sexual orientation: Straight/Heterosexual Physical Exam Vital Signs: Vital Signs: Last Vital Signs Temp 97.7 F 05/03/23 21:30 Pulse 58 05/03/23 21:30 Resp 16 05/03/23 21:30 BP 99/70 05/03/23 21:30 Pulse Ox 95 05/03/23 21:30 O2 Del Method Room Air 05/03/23 21:30 BMI result Body Mass Index 25.5 Appearance: Alert. Oriented X3. No acute distress. Eyes: PERRLA, ENT: Pharynx normal. Oral Mucosa moist Neck: Normal inspection. Neck supple. CVS: Normal heart rate and rhythm. Pulses normal. Respiratory: No respiratory distress. Equal air entry bilateral, no wheezing/rales/rhonchi Abdomen: Soft and nontender. Bowel sounds are present, no mass palpable, no CVA tenderness Skin: Skin warm and dry. Normal skin color. Normal skin turgor. Extremities: No lower extremity edema. No calf tenderness Neuro: Oriented X 3. Medications Administered Discontinued Medications Generic Name Dose Route Start Last Admin Trade Name Freq PRN Reason Stop Dose Admin Oxycodone HCl 5 mg 05/03/23 21:25 05/03/23 21:37 Oxycodone Hcl Immed Release 5 Mg Tablet PO 05/03/23 21:26 5 mg ONCE ONE Administration Medical Decision Making Differential Diagnosis Differential Diagnoses: The differential diagnosis associated with the presentation includes Narcotic seeking behavior/atypical chest pain/MELINA Independent Interpretation I performed an independent interpretation of an: EKG Interpretation: Sinus bradycardia heart rate 59 beats per minute normal interval normal axis LVH no acute STT wave changes no acute ischemia Discharge Plan Discharge Clinical Impression: Chest wall pain, chronic Patient Disposition: Home, Self-Care Instructions: Chest Wall Pain (ED) Additional Instructions: Follow with PCP Follow-up with psychiatry Your chest pain is likely musculoskeletal Prescriptions: No Action bethanechol chloride 50 mg tablet 50 mg PO BID 90 Days Qty: 180 1RF ondansetron 4 mg tablet,disintegrating 4 mg PO Q6-8H PRN (Reason: nausea and vomiting) Qty: 10 0RF cefdinir 300 mg capsule 300 mg PO BID 7 Days Qty: 14 0RF lorazepam [Ativan] 1 mg tablet 1 mg PO DAILY PRN (Reason: anxiety) Qty: 10 0RF ondansetron 4 mg tablet,disintegrating 4 mg PO Q6-8H PRN (Reason: nausea and vomiting) Qty: 7 0RF metformin 500 mg Tablet Extended Release 24 Hr 500 mg PO DAILY atenolol 25 mg Tablet 25 mg PO DAILY amitriptyline 100 mg Tablet 125 mg PO BEDTIME cholecalciferol (vitamin D3) [Vitamin D3] 25 mcg (1,000 unit) Tablet 25 mcg PO DAILY clonidine HCl 0.2 mg Tablet 0.2 mg PO BID melatonin 10 mg Tablet 10 mg PO BEDTIME terazosin 5 mg Capsule 5 mg PO BEDTIME buprenorphine-naloxone [Suboxone] 2-0.5 mg film 1 film buccal DAILY Qty: 6 0RF Rx Instructions: place 1 strip/tab under (each) side of tongue mirtazapine 30 mg tablet 30 mg PO BEDTIME zolpidem 10 mg tablet 12.5 mg PO BEDTIME PRN (Reason: Insomnia) Vitamin D (with calcium) 1 tab PO DAILY Rx Instructions: unknown dose, OTC nicotine 14 mg/24 hr Patch 24 Hour 14 mg transdermal DAILY 28 Days Qty: 28 0RF divalproex 250 mg Tablet,Delayed Release (Dr/Ec) 750 mg PO BID 30 Days Qty: 180 0RF olanzapine 10 mg Tablet 20 mg PO BEDTIME 30 Days Qty: 60 0RF docusate sodium 100 mg Capsule 100 mg PO BID 30 Days Qty: 60 0RF ondansetron 4 mg tablet,disintegrating 4 mg PO Q8H PRN (Reason: nausea and vomiting) Qty: 20 0RF omeprazole 20 mg tablet,delayed release (DR/EC) 20 mg PO DAILY Qty: 14 0RF ondansetron 4 mg tablet,disintegrating 4 mg PO Q8H PRN (Reason: nausea and vomiting) Qty: 20 0RF sennosides [senna] 8.6 mg tablet 8.6 mg PO BEDTIME Qty: 14 0RF docusate sodium [Colace] 100 mg capsule 100 mg PO BID Qty: 20 0RF polyethylene glycol 3350 [Miralax] 17 gram/dose powder 17 g PO BID Qty: 238 0RF amoxicillin-pot clavulanate 875-125 mg tablet 1 tab PO BID 3 Days Qty: 6 0RF acetaminophen 500 mg tablet 1,000 mg PO QID PRN (Reason: pain) Qty: 30 0RF oxycodone 5 mg tablet 5 mg PO Q6H PRN (Reason: pain) Qty: 5 0RF Rx Instructions: Partial Fill upon patient request. Paxlovid 300 mg (150 mg x 2)-100 mg tablets,dose pack See Rx Instructions .ROUTE .COMPLEX Qty: 30 0RF Rx Instructions: take TWO 150 mg tablets of nirmatrelvir with ONE 100 mg tablet of ritonavir twice daily for 5 days hydroxyzine HCl 50 mg tablet 50 mg PO QID PRN (Reason: anxiety) Interventions: ED Discharge Assessment Last Done: 05/03/23 21:43 Discharge Date/Time: 05/03/23 21:44
[2023-05-03 21:30] VITALS: BP 99/70; PULSE 58; RESP 16; TEMP 36.5; O2SAT 95; BMI 25.5
[2023-05-03] MEDS: oxyCODONE HCl Immed Release 5 MG TABLET PO (21:37)
== END 2023-05-03 21:44 | disposition home or self-care (01) ==
PROVIDERS: Emergency Provider Internal Medicine
DX: R07.89 Other chest pain (principal); R20.0 Anesthesia of skin; Z79.899 Other long term (current) drug therapy; F17.210 Nicotine dependence, cigarettes, uncomplicated
CPT/HCPCS: 93005; 99283

== ENCOUNTER → 2023-05-03 21:12 | Outpatient (BNV) | payer MEDICAID, SELFPAY | PROVIDERS: Emergency Provider Internal Medicine; Visit Provider Internal Medicine Cardiovascular Disease | DX: R07.9 Chest pain, unspecified (principal) | CPT/HCPCS: 93010 ==

== ENCOUNTER 2023-05-06 19:09 | Emergency (ER) | payer MEDICAID, SELFPAY ==
--- NOTE | 2023-05-06 | ECG_ITS ---
Test Reason : CP Blood Pressure : / mmHG Vent. Rate : 060 BPM Atrial Rate : 060 BPM P-R Int : 156 ms QRS Dur : 082 ms QT Int : 408 ms P-R-T Axes : 019 -03 027 degrees QTc Int : 408 ms Normal sinus rhythm Minimal voltage criteria for LVH, may be normal variant ( R in aVL ) Borderline ECG When compared with ECG of 03-MAY-2023 21:19, No significant change was found Referred By: Generic ED Physician Electronically Signed By:MARIE LOCKWOOD MD
[2023-05-06 19:25] VITALS: BP 112/76; BP 114/72; PULSE 63; PULSE 75; RESP 15; TEMP 36.5; O2SAT 100; O2SAT 98; BMI 26.7
[2023-05-06 19:29] VITALS: PULSE 62
[2023-05-06 20:20] LABS: Hematocrit 34.9 % (42.0-52.0); Hemoglobin 11.6 g/dl (14.0-18.0); Mean Corpuscular HGB Conc 33.2 g/dl (31.0-36.0); Mean Corpuscular Hemoglobin 29.1 pg (27.0-33.0); Mean Corpuscular Volume 87.5 fL (80.0-98.0); Mean Platelet Volume 9.1 fL (9.4-12.4); Platelet Count 224 X10*3/uL (160-400); Red Blood Count 3.99 X10*6/uL (4.60-5.80); Red Cell Distribution Width 15.6 % (11.0-16.0); White Blood Count 7.7 X10*3/uL (4.8-10.8)
[2023-05-06 20:28] LABS: Anion Gap 13 (12-20); Blood Urea Nitrogen 4 mg/dL (9-16); Calcium 9.8 mg/dL (8.4-10.2); Carbon Dioxide 25 mmol/L (22-29); Chloride 106 mmol/L (96-108); Creatinine Clr Calc Pharmacy 91.9; Estimated Glomerular Filt Rate > 60; Glucose Random 141 mg/dL (60-115); Potassium 3.3 mmol/L (3.3-5.1); Sodium 141 mmol/L (135-145)
[2023-05-06 20:31] LABS: Prothrombin Time 12.3 SEC (11.1-13.3)
[2023-05-06 20:37] LABS: Troponin-I High Sensitivity < 2.7 ng/L (<3.5-35.0)
--- NOTE | 2023-05-06 20:46 | ED.CHESTPAIN ---
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 I had to wake the patient up in order to inquire about his symptoms. Related Data Home Medications Medication Instructions Recorded Confirmed hydroxyzine HCl 50 mg tablet 50 mg PO QID PRN anxiety 03/03/22 09/23/22 amitriptyline 100 mg tablet 125 mg PO BEDTIME 07/11/22 09/23/22 atenolol 25 mg tablet 25 mg PO DAILY 07/11/22 09/23/22 cholecalciferol (vitamin D3) 25 25 mcg PO DAILY 07/11/22 09/23/22 mcg (1,000 unit) tablet (Vitamin D3) clonidine HCl 0.2 mg tablet 0.2 mg PO BID 07/11/22 09/23/22 melatonin 10 mg tablet 10 mg PO BEDTIME 07/11/22 09/23/22 metformin 500 mg tablet,extended 500 mg PO DAILY 07/11/22 09/23/22 release 24 hr terazosin 5 mg capsule 5 mg PO BEDTIME 07/11/22 09/23/22 Vitamin D (with calcium) 1 tab PO DAILY 09/23/22 09/23/22 mirtazapine 30 mg tablet 30 mg PO BEDTIME 09/23/22 09/23/22 zolpidem 10 mg tablet 12.5 mg PO BEDTIME PRN Insomnia 09/23/22 09/23/22 Previous Rx's Medication Instructions Recorded buprenorphine 2 mg-naloxone 0.5 mg 1 film buccal DAILY #6 ea 07/18/22 sublingual film (Suboxone) bethanechol chloride 50 mg tablet 50 mg PO BID 90 days #180 tabs 08/22/22 divalproex 250 mg tablet,delayed 750 mg (3 x 250 mg) PO BID 30 days 09/29/22 release #180 tabs docusate sodium 100 mg capsule 100 mg PO BID 30 days #60 caps 09/29/22 nicotine 14 mg/24 hr daily 14 mg transdermal DAILY 28 days 09/29/22 transdermal patch #28 ea olanzapine 10 mg tablet 20 mg (2 x 10 mg) PO BEDTIME 30 09/29/22 days #60 tabs omeprazole 20 mg tablet,delayed 20 mg PO DAILY #14 tabs 10/01/22 release ondansetron 4 mg disintegrating 4 mg PO Q8H PRN nausea and 10/01/22 tablet vomiting #20 tabs ondansetron 4 mg disintegrating 4 mg PO Q6-8H PRN nausea and 10/08/22 tablet vomiting #10 tabs ondansetron 4 mg disintegrating 4 mg PO Q8H PRN nausea and 10/18/22 tablet vomiting #20 tabs cefdinir 300 mg capsule 300 mg PO BID 7 days #14 caps 02/22/23 docusate sodium 100 mg capsule 100 mg PO BID #20 caps 03/19/23 (Colace) polyethylene glycol 3350 17 17 g PO BID #238 grams 03/19/23 gram/dose oral powder (Miralax) sennosides 8.6 mg tablet (senna) 8.6 mg PO BEDTIME #14 tabs 03/19/23 acetaminophen 500 mg tablet 1,000 mg (2 x 500 mg) PO QID PRN 03/23/23 pain #30 tabs amoxicillin 875 mg-potassium 1 tab PO BID 3 days #6 tabs 03/23/23 clavulanate 125 mg tablet oxycodone 5 mg tablet 5 mg PO Q6H PRN pain #5 tabs 03/23/23 nirmatrelvir 300 mg (150 mg See Rx Instructions PO .COMPLEX 03/30/23 x2)-ritonavir 100 mg tablet,dose #30 ea pack (Paxlovid) lorazepam 1 mg tablet (Ativan) 1 mg PO DAILY PRN anxiety #10 tabs 05/01/23 ondansetron 4 mg disintegrating 4 mg PO Q6-8H PRN nausea and 05/01/23 tablet vomiting #7 tabs omeprazole 40 mg capsule,delayed 40 mg PO DAILY #30 caps 05/06/23 release Allergies Allergy/AdvReac Type Severity Reaction Status Date / Time trazodone [TRAZODONE] Allergy Severe FACIAL Verified 05/06/23 19:25 SWELLING, swelling cat dander [CATS] Allergy Intermediate FACIAL Verified 05/06/23 19:25 ITCHING doxepin [DOXEPIN] Allergy Intermediate WEIGHT Verified 05/06/23 19:25 GAIN/LEG SWELLING Iodinated Contrast Media Allergy Intermediate ITCHING Verified 05/06/23 19:25 [IV DYE, IODINE CONTAINING CONTRAST ] nitroglycerin [NITROGLYCERIN] Allergy Unknown UNKNOWN Verified 05/06/23 19:25 tramadol [TRAMADOL] Allergy Unknown UNKNOWN, Verified 05/06/23 19:25 dry mouth ibuprofen [From MOTRIN] AdvReac Intermediate GI UPSET Verified 05/06/23 19:25 quetiapine [From SEROQUEL] AdvReac Intermediate FACIAL Verified 05/06/23 19:25 SWELLING aspirin [ASPIRIN] AdvReac Mild Stomach Verified 05/06/23 19:25 Upset Ibuprofen Allergy Unknown stomach Uncoded 05/06/23 19:25 ache IV contrast Allergy Unknown Unknown Uncoded 05/06/23 19:25 Motrin Allergy Unknown stomach Uncoded 05/06/23 19:25 pain Review of Systems Review of Systems: Pertinent positives and negatives as stated in HPI [facility] Past Medical History Source: nursing notes reviewed 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 GERD (gastroesophageal reflux disease) Anxiety Surgical History History of colonoscopy History of cystoscopy H/O umbilical hernia repair Family History Family History Father HTN (hypertension) Diabetes Mother HTN (hypertension) Stroke Alzheimer disease Heart disease Social History Social History Household Members: None Housing: Apartment Do you presently have visiting nurse or other home services: Yes Alcohol intake: never Comment: 1:1 sitter Patient Tobacco Use Status: Current everyday Tobacco user Tobacco use type: Cigarette Cigarette Packs Per Day: 1 Cigarettes Per Day: 20.0 Years Smoked: 9 Smoked in Last 30 Days: Yes e-Cigarette/Vaping Use: Never Used Second Hand Smoke Exposure: Yes Use of substances other than those prescribed or required for medical reasons: No Substance Use Type: Heroin and Opiates Advance Directives: Yes Advance Directives on File: Yes Advance Directives Date on File: 02/14/20 service: No Current occupational status: unemployed and disabled Sexual orientation: Straight/Heterosexual Physical Exam Vital Signs: Vital Signs: Last Vital Signs Temp 97.7 F 05/06/23 19:25 Pulse 63 05/06/23 19:25 Resp 15 05/06/23 19:25 BP 114/72 05/06/23 19:25 Pulse Ox 98 05/06/23 19:25 O2 Del Method Room Air 05/06/23 19:25 BMI result Body Mass Index 26.7 VITAL SIGNS: Reviewed. GENERAL: Well developed, well nourished, in no acute distress. HEAD: Normocephalic/atraumatic EYES: PERRLA, EOMI EARS: Ext canals without abnormality NOSE: Nares patent bilateral OROPHARYNX: no oral lesions noted, posterior pharynx clear NECK: Supple, no adenopathy LUNGS: Normal breath sounds. No adventitious sounds or accessory muscle use. SpO2<98> CARDIOVASCULAR: Regular rate and rhythm without noted murmurs, no JVD or lower extremity edema. ABDOMEN: Soft, non-tender, non-distended with bowel sounds. MUSCULOSKELETAL: No tenderness, deformities, or effusions noted on gross inspection. EXTREMITIES: No cyanosis, clubbing or edema. SKIN: Inspection of the skin reveals no rashes NEUROLOGIC: Alert and oriented x 4. Strength and sensation to light touch were grossly intact x 4. Medical Decision Making Medical Decision Making [facility] Narrative: 53-year-old male with history and clinical presentation, DDX: Atypical chest pain, but will evaluate with high sensitivity troponin and EKG to ensure no acute changes or findings, possibility and most likely of GERD/acid reflux. I reviewed all investigations and hematologic indices are grossly stable. There is no leukocytosis, stable normocytic anemia and no thrombocytopenia. Coagulation studies within normal limits. Chemistry indices do not demonstrate an NAOMI and otherwise there are no electrolyte abnormalities and high sensitivity troponin is undetectable and there are no acute changes on EKG.. Patient provided with a GI cocktail and otherwise discharged home. Differential Diagnosis Differential Diagnoses: The differential diagnosis associated with the presentation includes Please see the discussion above Admission/Observation Consideration of admission/observation: Escalation of care including admission/observation considered Please see the discussion above Lab Data [facility] Lab Attestation statement: I reviewed the patient's lab results. Please see the discussion above 05/06/23 20:08 05/06/23 20:08 Labs: Lab Results 05/06/23 Range/Units 20:08 WBC 7.7 (4.8-10.8) X10*3/uL RBC 3.99 L (4.60-5.80) X10*6/uL Hgb 11.6 L (14.0-18.0) g/dl Hct 34.9 L (42.0-52.0) % MCV 87.5 (80.0-98.0) fL MCH 29.1 (27.0-33.0) pg MCHC 33.2 (31.0-36.0) g/dl RDW 15.6 (11.0-16.0) % Plt Count 224 (160-400) X10*3/uL MPV 9.1 L (9.4-12.4) fL Absolute Nucleated RBC 0.000 (0.0-0.012) X10*3/uL Nucleated RBC % (auto) 0.0 (0.0-0.2) /100WBC PT 12.3 (11.1-13.3) SEC INR 1.0 (0.9-1.1) Sodium 141 (135-145) mmol/L Potassium 3.3 (3.3-5.1) mmol/L Chloride 106 (96-108) mmol/L Carbon Dioxide 25 (22-29) mmol/L Anion Gap 13 (12-20) BUN 4 L (9-16) mg/dL Creatinine 0.79 (0.5-1.4) mg/dL Estim Creat Clear Calc 91.9 Estimated GFR > 60 Random Glucose 141 H (60-115) mg/dL Calcium 9.8 D (8.4-10.2) mg/dL Troponin I High Sens < 2.7 (<3.5-35.0) ng/L Independent Interpretation I performed an independent interpretation of an: EKG Interpretation: Normal sinus rhythm, HR-60, no STEMI, SC/QRS/QTC is within normal limits. External Record Review External record reviewed: Outpatient record and Prior outpatient labs Chronic Conditions Patient?s care impacted by: Other Depression Critical Care Time Critical Care Time Critical Care Time: Yes Total Critical Care Time: 45 Attestation: I personally attest to this time spent taking care of the patient. Discharge Plan Discharge Clinical Impression: Atypical chest pain, GERD (gastroesophageal reflux disease) Patient Disposition: Home, Self-Care Instructions: Chest Pain (ED), Diet for Stomach Ulcers and Gastritis (ED), Gastroesophageal Reflux Disease (ED) Additional Instructions: 1. Reanudar todos los medicamentos caseros seg?n lo recetado. 2. Post la nueva receta de medicamento para el control del ?cido seg?n lo recetado. 3. Sondra un seguimiento con owusu m?dico de atenci?n primaria llamando al consultorio a primera hora de la ma?josesito. Regrese a la mariel de emergencias si los s?ntomas empeoran. 1. Resume all home medications as prescribed. 2. Please take the new prescription for acid control medication as prescribed. 3. Please follow-up with your primary care doctor by calling the office 1st thing in the morning. Return to the ER for any worsening symptoms. Prescriptions: New omeprazole 40 mg capsule,delayed release(DR/EC) 40 mg PO DAILY Qty: 30 0RF No Action bethanechol chloride 50 mg tablet 50 mg PO BID 90 Days Qty: 180 1RF ondansetron 4 mg tablet,disintegrating 4 mg PO Q6-8H PRN (Reason: nausea and vomiting) Qty: 10 0RF cefdinir 300 mg capsule 300 mg PO BID 7 Days Qty: 14 0RF lorazepam [Ativan] 1 mg tablet 1 mg PO DAILY PRN (Reason: anxiety) Qty: 10 0RF ondansetron 4 mg tablet,disintegrating 4 mg PO Q6-8H PRN (Reason: nausea and vomiting) Qty: 7 0RF metformin 500 mg Tablet Extended Release 24 Hr 500 mg PO DAILY atenolol 25 mg Tablet 25 mg PO DAILY amitriptyline 100 mg Tablet 125 mg PO BEDTIME cholecalciferol (vitamin D3) [Vitamin D3] 25 mcg (1,000 unit) Tablet 25 mcg PO DAILY clonidine HCl 0.2 mg Tablet 0.2 mg PO BID melatonin 10 mg Tablet 10 mg PO BEDTIME terazosin 5 mg Capsule 5 mg PO BEDTIME buprenorphine-naloxone [Suboxone] 2-0.5 mg film 1 film buccal DAILY Qty: 6 0RF Rx Instructions: place 1 strip/tab under (each) side of tongue mirtazapine 30 mg tablet 30 mg PO BEDTIME zolpidem 10 mg tablet 12.5 mg PO BEDTIME PRN (Reason: Insomnia) Vitamin D (with calcium) 1 tab PO DAILY Rx Instructions: unknown dose, OTC nicotine 14 mg/24 hr Patch 24 Hour 14 mg transdermal DAILY 28 Days Qty: 28 0RF divalproex 250 mg Tablet,Delayed Release (Dr/Ec) 750 mg PO BID 30 Days Qty: 180 0RF olanzapine 10 mg Tablet 20 mg PO BEDTIME 30 Days Qty: 60 0RF docusate sodium 100 mg Capsule 100 mg PO BID 30 Days Qty: 60 0RF ondansetron 4 mg tablet,disintegrating 4 mg PO Q8H PRN (Reason: nausea and vomiting) Qty: 20 0RF omeprazole 20 mg tablet,delayed release (DR/EC) 20 mg PO DAILY Qty: 14 0RF ondansetron 4 mg tablet,disintegrating 4 mg PO Q8H PRN (Reason: nausea and vomiting) Qty: 20 0RF sennosides [senna] 8.6 mg tablet 8.6 mg PO BEDTIME Qty: 14 0RF docusate sodium [Colace] 100 mg capsule 100 mg PO BID Qty: 20 0RF polyethylene glycol 3350 [Miralax] 17 gram/dose powder 17 g PO BID Qty: 238 0RF amoxicillin-pot clavulanate 875-125 mg tablet 1 tab PO BID 3 Days Qty: 6 0RF acetaminophen 500 mg tablet 1,000 mg PO QID PRN (Reason: pain) Qty: 30 0RF oxycodone 5 mg tablet 5 mg PO Q6H PRN (Reason: pain) Qty: 5 0RF Rx Instructions: Partial Fill upon patient request. Paxlovid 300 mg (150 mg x 2)-100 mg tablets,dose pack See Rx Instructions .ROUTE .COMPLEX Qty: 30 0RF Rx Instructions: take TWO 150 mg tablets of nirmatrelvir with ONE 100 mg tablet of ritonavir twice daily for 5 days hydroxyzine HCl 50 mg tablet 50 mg PO QID PRN (Reason: anxiety) Referrals: [facility] [Primary Care Provider] - Print Language: Maori
[2023-05-06] MEDS: Magnesium Hydrox/Alum Hydrox 30 ML ORAL.SUSP PO (23:30)
[2023-05-06] MEDS: Lidocaine HCl Viscous 2 % 15 ML SOLUTION 10 ML MUCOUS MEM (23:30)
== END 2023-05-06 23:35 | disposition home or self-care (01) ==
PROVIDERS: Emergency Provider Student in an Organized Health Care Education/Training Program
DX: R07.89 Other chest pain (principal); K21.9 Gastro-esophageal reflux disease without esophagitis; F17.210 Nicotine dependence, cigarettes, uncomplicated
CPT/HCPCS: 36415; 80048; 84484; 85027; 85610; 93005; 99283; 99284

== ENCOUNTER → 2023-05-06 19:52 | Outpatient (BNV) | payer MEDICAID, SELFPAY | PROVIDERS: Emergency Provider Student in an Organized Health Care Education/Training Program; Visit Provider Internal Medicine Cardiovascular Disease | DX: R07.89 Other chest pain (principal) | CPT/HCPCS: 93010 ==

== ENCOUNTER 2023-05-09 08:49 | Emergency (ER) | payer MEDICAID, SELFPAY ==
[2023-05-09] VITALS (11 sets, daily range): BP systolic 133–155; BP diastolic 80–100; PULSE 86–117; RESP 12–20; TEMP 35.6–37.1; O2SAT 96–99; BMI 25.1
--- NOTE | ~2023-05-09 | CT_ITS ---
EXAMINATION: CT HEAD W/O IV CONTRAST CT CERVICAL SPINE W/O IV CONTRAST CLINICAL INFORMATION: History of fall with head strike. COMPARISON: Head CT from 11/08/2022 TECHNIQUE: Head - Contiguous axial imaging of the head was performed from the skull base to the vertex without the administration of intravenous contrast, and axial images are reconstructed at 2 mm and 5 mm slice thickness. Cervical spine - A volumetric, helical CT acquisition of the cervical spine was obtained without contrast; in addition to the standard set of axial images, multiplanar reformatted images were provided in the coronal and sagittal imaging planes. This CT examination was performed using dose optimization techniques as appropriate, variously including the following: *Automated exposure control *Adjustment of mA and/or kV according to patient size (this includes techniques or standardized protocols for targeted exams where dose is matched to indication/reason for exam; i.e. extremities or head) *Use of iterative reconstruction technique DLP: 1018 mGy-cm (total) FINDINGS: HEAD: No acute intracranial findings. Queen to white matter differentiation is preserved. No evidence of intracranial hemorrhage, major vascular territory infarction, focal mass effect or midline shift. Mild parenchymal volume loss with commensurate prominence of ventricles and sulci. No hydrocephalus or extra-axial fluid collections. There is atherosclerotic calcification of cavernous carotid arteries. There appear to be chronic mild small vessel ischemic changes within deep/periventricular white matter and gangliocapsular regions. No evidence of calvarial fracture. The mastoid air cells are well aerated. Mucosal thickening of maxillary sinuses. No air-fluid levels of paranasal sinuses. The orbits and globes are unremarkable. The temporomandibular joints are grossly normal but suboptimally evaluated due to motion. CERVICAL SPINE: Mild dextrocurvature and loss of lordotic curvature of the degenerated cervical spine. The craniocervical junction is normal. The occipital condyles, dens and atlantodental articulation are intact. The vertebral body heights and alignment are maintained. No fractures in the anterior or posterior elements. No prevertebral soft tissue edema or soft tissue hematoma. There are vertebral osteophytes at C4-C5, C5-C6 and C6-C7. Mild degenerative disc space narrowing at C6-C7. Otherwise, disc spaces are well-preserved. Multilevel, predominantly left-sided facet arthropathy (including C2-C3, C3-C4, C4-C5 and C5-C6). The hypertrophied uncovertebral joints at C6-C7 cause moderate right and [id number] left neural foraminal stenosis. 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 There is no significant narrowing of the central spinal canal. Thyroid gland lung apices are unremarkable. CT/CT head/brain wo IV con IMPRESSION: * No intracranial hemorrhage or other acute intracranial pathology compared to 11/08/2022. * No fracture or malalignment in the degenerated cervical spine. * Incidentally noted is mucosal thickening of maxillary sinuses.
--- NOTE | ~2023-05-09 | CT_ITS ---
EXAMINATION: CT HEAD W/O IV CONTRAST CT CERVICAL SPINE W/O IV CONTRAST CLINICAL INFORMATION: History of fall with head strike. COMPARISON: Head CT from 11/08/2022 TECHNIQUE: Head - Contiguous axial imaging of the head was performed from the skull base to the vertex without the administration of intravenous contrast, and axial images are reconstructed at 2 mm and 5 mm slice thickness. Cervical spine - A volumetric, helical CT acquisition of the cervical spine was obtained without contrast; in addition to the standard set of axial images, multiplanar reformatted images were provided in the coronal and sagittal imaging planes. This CT examination was performed using dose optimization techniques as appropriate, variously including the following: *Automated exposure control *Adjustment of mA and/or kV according to patient size (this includes techniques or standardized protocols for targeted exams where dose is matched to indication/reason for exam; i.e. extremities or head) *Use of iterative reconstruction technique DLP: 1018 mGy-cm (total) FINDINGS: HEAD: No acute intracranial findings. Queen to white matter differentiation is preserved. No evidence of intracranial hemorrhage, major vascular territory infarction, focal mass effect or midline shift. Mild parenchymal volume loss with commensurate prominence of ventricles and sulci. No hydrocephalus or extra-axial fluid collections. There is atherosclerotic calcification of cavernous carotid arteries. There appear to be chronic mild small vessel ischemic changes within deep/periventricular white matter and gangliocapsular regions. No evidence of calvarial fracture. The mastoid air cells are well aerated. Mucosal thickening of maxillary sinuses. No air-fluid levels of paranasal sinuses. The orbits and globes are unremarkable. The temporomandibular joints are grossly normal but suboptimally evaluated due to motion. CERVICAL SPINE: Mild dextrocurvature and loss of lordotic curvature of the degenerated cervical spine. The craniocervical junction is normal. The occipital condyles, dens and atlantodental articulation are intact. The vertebral body heights and alignment are maintained. No fractures in the anterior or posterior elements. No prevertebral soft tissue edema or soft tissue hematoma. There are vertebral osteophytes at C4-C5, C5-C6 and C6-C7. Mild degenerative disc space narrowing at C6-C7. Otherwise, disc spaces are well-preserved. Multilevel, predominantly left-sided facet arthropathy (including C2-C3, C3-C4, C4-C5 and C5-C6). The hypertrophied uncovertebral joints at C6-C7 cause moderate right and [id number]-[id number] left neural foraminal stenosis. 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 There is no significant narrowing of the central spinal canal. Thyroid gland lung apices are unremarkable. CT/CT cervical spine wo IV con IMPRESSION: * No intracranial hemorrhage or other acute intracranial pathology compared to 11/08/2022. * No fracture or malalignment in the degenerated cervical spine. * Incidentally noted is mucosal thickening of maxillary sinuses.
--- NOTE | ~2023-05-09 | XR_ITS ---
EXAMINATION: XR CHEST CLINICAL INFORMATION: Chest pain COMPARISON: Previous chest x-ray March 2023 TECHNIQUE: Frontal view of the chest was obtained. FINDINGS: Low lung volumes. Cardiac and mediastinal contours are unremarkable. Lungs are clear. No pleural effusion or pneumothorax. Old posterior right seventh rib fracture. XR/XR chest 1V IMPRESSION: No evidence for acute disease in the chest. Low lung volumes.
--- NOTE | ~2023-05-09 | CT_ITS ---
EXAMINATION: CT ABDOMEN AND PELVIS WITHOUT CONTRAST CLINICAL INFORMATION: Right lower quadrant pain, nausea and vomiting COMPARISON: Previous CT of the abdomen and pelvis June 2021 TECHNIQUE: Multidetector volumetric imaging was performed from the superior aspect of the liver through the pubic symphysis. Sagittal and coronal reformatted images were obtained on the technologist's workstation. This CT examination was performed using dose optimization techniques as appropriate, variously including the following: *Automated exposure control *Adjustment of mA and/or kV according to patient size (this includes techniques or standardized protocols for targeted exams where dose is matched to indication/reason for exam; i.e. extremities or head) *Use of iterative reconstruction technique DLP: 510 mGy-cm FINDINGS: LUNG BASES: Right base atelectasis. There may be wall thickening of the distal thoracic esophagus. LIVER, GALLBLADDER, AND BILIARY TREE: The liver is normal in size, shape, and attenuation. No focal hepatic lesion or biliary ductal dilatation is present. The gallbladder is unremarkable with no evidence of radiopaque gallstones, gallbladder wall thickening, or obvious pericholecystic inflammatory changes. PANCREAS: Fatty infiltration. Pancreas is otherwise unremarkable. SPLEEN: Unremarkable. ADRENAL GLANDS: Unremarkable. KIDNEYS AND URETERS: The kidneys are normal in size, shape, and attenuation. No hydronephrosis, hydroureter, or calculi seen. I lateral No imaging follow-up recommended. No perinephric stranding. BLADDER: Unremarkable. GASTROINTESTINAL TRACT: Mild diverticulosis of the colon. The small and large bowel are unremarkable. The appendix is unremarkable. ABDOMINAL WALL: Postsurgical changes following hernia repair, stable. LYMPH NODES: Normal. VASCULAR: Unremarkable. PELVIC VISCERA: Unremarkable. OSSEOUS STRUCTURES: Postsurgical changes with posterior fusion hardware at L3 mild degenerative changes spine. CT/CT abdomen pelvis wo IV con IMPRESSION: No cause of right lower quadrant pain seen. Normal appendix. Mild diverticulosis. Question mild wall thickening distal thoracic esophagus. Fleischner guidelines were followed.
--- NOTE | 2023-05-09 09:05 | ECG_ITS ---
Test Reason : chest pain Blood Pressure : / mmHG Vent. Rate : 088 BPM Atrial Rate : 088 BPM P-R Int : 130 ms QRS Dur : 080 ms QT Int : 382 ms P-R-T Axes : 035 -02 033 degrees QTc Int : 462 ms Normal sinus rhythm Minimal voltage criteria for LVH, may be normal variant ( R in aVL ) Borderline ECG When compared with ECG of 09-MAY-2023 09:08, QT has shortened Referred By: Angélica Mayberry Electronically Signed By:MARIE LOCKWOOD MD
[2023-05-09 09:31] LABS: MANUAL DIFF FLAG NO
[2023-05-09 09:34] LABS: Basophils Absolute Auto 0.1 X10*3/uL (0.0-0.2); Basophils Percent Auto 0.4 % (0-2); Eosinophils Absolute Auto 0.4 X10*3/uL (0.0-0.4); Eosinophils Percent Auto 3.3 % (0-4); Hemoglobin 13.2 g/dl (14.0-18.0); Imm Gran Abs Auto 0.03 X10*3/uL (0.00-0.03); Imm Gran Pct Auto 0.3 % (0.0-0.4); Lymphocytes Absolute Auto 1.4 X10*3/uL (1.2-4.9); Lymphocytes Percent Auto 12.7 % (20-40); Mean Corpuscular HGB Conc 33.8 g/dl (31.0-36.0); Mean Corpuscular Hemoglobin 29.3 pg (27.0-33.0); Mean Corpuscular Volume 86.5 fL (80.0-98.0); Monocytes Absolute Auto 0.6 X10*3/uL (0.1-1.2); Monocytes Percent Auto 5.2 % (2-11); Neutrophils Absolute Auto 8.9 x10*3/uL (2.0-8.3); Neutrophils Percent Auto 78.1 % (45-73); Platelet Count 279 X10*3/uL (160-400); Red Blood Count 4.51 X10*6/uL (4.60-5.80); Red Cell Distribution Width 15.5 % (11.0-16.0); White Blood Count 11.4 X10*3/uL (4.8-10.8)
--- NOTE | 2023-05-09 09:40 | ED.GENADULT ---
HPI - General Adult General Chief complaint: General Medical Stated complaint: ABD PAIN VOMITING Time Seen by Provider: 05/09/23 09:40 Source: patient and RN notes reviewed Mode of arrival: ambulatory Limitations: no limitations History of Present Illness HPI narrative: This is a 53-year-old Japanese-speaking male, with a past medical history of hypertension, alcohol use disorder - no use in 5 years, MDD, GERD, and anxiety presenting to the emergency department with complaints of chest pain, abdominal pain, nausea, and vomiting x1 week. Patient reports that 1 week ago he developed abdominal pain, intermittent chest pain, nausea and vomiting. Denies eating any unusual foods over the last week. He states that the chest pain is intermittent, feels as though it is a tight sensation in his chest. Chest pain is nonradiating. States that the chest pain lasts for several seconds and resolved on its own. He has been unable to tolerate p.o. secondary to nausea and vomiting. History of hernia repair, otherwise no other abdominal surgeries. Denies any fevers, chills, shortness of breath, diarrhea constipation. No urinary symptoms. No other complaints or concerns at this time. MD complaint: Abdominal pain, chest pain Onset (ago): day(s) Relieving factors: none Exacerbating factors: none Associated symptoms: denies other symptoms Treatments prior to arrival: none Related Data Home Medications Medication Instructions Recorded Confirmed hydroxyzine HCl 50 mg tablet 50 mg PO QID PRN anxiety 03/03/22 05/10/23 amitriptyline 100 mg tablet 125 mg PO BEDTIME 07/11/22 05/09/23 atenolol 25 mg tablet 25 mg PO DAILY 07/11/22 05/09/23 cholecalciferol (vitamin D3) 25 25 mcg PO DAILY 07/11/22 05/09/23 mcg (1,000 unit) tablet (Vitamin D3) clonidine HCl 0.2 mg tablet 0.2 mg PO TID 07/11/22 05/10/23 metformin 500 mg tablet,extended 500 mg PO DAILY 07/11/22 05/10/23 release 24 hr albuterol sulfate 90 mcg/actuation 2 puff inhalation Q4-6H PRN Dyspnea 05/09/23 05/09/23 aerosol inhaler (Ventolin HFA) zolpidem 12.5 mg tablet,extended 12.5 mg PO BEDTIME PRN insomnia 05/09/23 05/09/23 release,multiphase benztropine 0.5 mg tablet 0.5 mg PO BID 05/10/23 05/10/23 diphenhydramine HCl 25 mg tablet 50 mg PO BEDTIME 05/10/23 05/10/23 melatonin 5 mg tablet 10 mg PO BEDTIME 05/10/23 05/10/23 mirtazapine 45 mg tablet 45 mg PO BEDTIME 05/10/23 05/10/23 omeprazole 20 mg capsule,delayed 20 mg PO DAILY 05/10/23 05/10/23 release polyethylene glycol 3350 17 17 g PO BID PRN Constipation 05/10/23 05/10/23 gram/dose oral powder (ClearLax) sennosides 8.6 mg tablet (senna) 8.6 mg PO BEDTIME PRN Constipation 05/10/23 05/10/23 Previous Rx's Medication Instructions Recorded acetaminophen 500 mg tablet 1,000 mg (2 x 500 mg) PO QID PRN 03/23/23 pain #30 tabs Allergies Allergy/AdvReac Type Severity Reaction Status Date / Time trazodone [TRAZODONE] Allergy Severe FACIAL Verified 05/09/23 23:09 SWELLING, swelling cat dander [CATS] Allergy Intermediate FACIAL Verified 05/09/23 23:09 ITCHING doxepin [DOXEPIN] Allergy Intermediate WEIGHT Verified 05/09/23 23:09 GAIN/LEG SWELLING Iodinated Contrast Media Allergy Intermediate ITCHING Verified 05/09/23 23:09 [IV DYE, IODINE CONTAINING CONTRAST ] nitroglycerin [NITROGLYCERIN] Allergy Unknown UNKNOWN Verified 05/09/23 23:09 tramadol [TRAMADOL] Allergy Unknown UNKNOWN, Verified 05/09/23 23:09 dry mouth ibuprofen [From MOTRIN] AdvReac Intermediate GI UPSET Verified 05/09/23 23:09 quetiapine [From SEROQUEL] AdvReac Intermediate FACIAL Verified 05/09/23 23:09 SWELLING aspirin [ASPIRIN] AdvReac Mild Stomach Verified 05/09/23 23:09 Upset Ibuprofen Allergy Unknown stomach Uncoded 05/06/23 19:25 ache IV contrast Allergy Unknown Unknown Uncoded 05/06/23 19:25 Motrin Allergy Unknown stomach Uncoded 05/06/23 19:25 pain Review of Systems Review of Systems: Yes all other systems are reviewed and are negative Constitutional: Constitutional: Reports as per [facility] Past Medical History Attestation statement: The following information was validated with the patient. 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 GERD (gastroesophageal reflux disease) Anxiety Surgical History History of colonoscopy History of cystoscopy H/O umbilical hernia repair Family History Family History Father HTN (hypertension) Diabetes Mother HTN (hypertension) Stroke Alzheimer disease Heart disease Social History Social History Household Members: None Housing: Apartment Do you presently have visiting nurse or other home services: Yes Alcohol intake: never Comment: 1:1 sitter Patient Tobacco Use Status: Current everyday Tobacco user Tobacco use type: Cigarette Cigarette Packs Per Day: 1 Cigarettes Per Day: 20.0 Years Smoked: 9 Smoked in Last 30 Days: Yes e-Cigarette/Vaping Use: Never Used Second Hand Smoke Exposure: Yes Use of substances other than those prescribed or required for medical reasons: No Substance Use Type: Heroin and Opiates Advance Directives: Yes Advance Directives on File: Yes Advance Directives Date on File: 02/14/20 service: No Current occupational status: unemployed and disabled Sexual orientation: Straight/Heterosexual Physical Exam ED Vital Signs: Vital Signs - 24 hr 05/09/23 09:05 05/09/23 11:35 05/09/23 12:32 Temperature 96.1 F L 98.7 F 98.0 F Pulse Rate 112 H 104 H 107 H Respiratory Rate 16 20 16 Blood Pressure 150/94 H 137/93 H 143/97 H Pulse Oximetry 96 96 98 Oxygen Delivery Method Room Air Room Air Room Air 05/09/23 13:02 05/09/23 15:29 05/09/23 15:32 Temperature 98.7 F 97.8 F Pulse Rate 97 92 Respiratory Rate 16 18 Blood Pressure 133/87 146/100 H 148/90 H Pulse Oximetry 99 97 Oxygen Delivery Method Room Air Room Air 05/09/23 16:26 05/09/23 18:09 05/09/23 20:22 Temperature 97.7 F 98.8 F 98.1 F Pulse Rate 101 H 96 86 Respiratory Rate 16 16 20 Blood Pressure 155/81 H 149/80 H 152/99 H Pulse Oximetry 97 98 98 Oxygen Delivery Method Room Air Room Air Room Air 05/09/23 22:00 05/09/23 23:49 05/10/23 00:00 Temperature 98.8 F Pulse Rate 91 91 Respiratory Rate 12 20 17 Blood Pressure 150/82 H 138/84 Pulse Oximetry 98 94 Oxygen Delivery Method Room Air Room Air BMI result Body Mass Index 25.1 Const General: cooperative, comfortable and no acute distress Orientation/consciousness: patient oriented x3 Limitations: no limitations HENMT Head: Yes normal to inspection, Yes normocephalic and Yes atraumatic Ears: hearing grossly normal bilaterally General nose exam: Normal external nose present Face and sinus: Yes normal facial exam Mouth: Normal oral and palatal mucosa present, oropharynx normal and moist mucous membranes Throat: Yes posterior oropharynx normal Eyes General: appearance normal, both eyes and all related structures Eyelids: Yes eyelids normal Conjunctivae: conjunctivae normal Sclerae: sclerae normal Pupils: Equal, round and reactive pupils present EOM: EOMs intact bilaterally Neck Neck: Yes normal visual inspection, Yes full ROM and Yes no lymphadenopathy Lymphatic: no lymphadenopathy noted Chest Chest palpation & inspection: normal inspection of the chest Resp Effort & Inspection: normal respiratory effort and able to speak in complete sentences Auscultation: clear to auscultation bilaterally, no crackles, no rales, no rhonchi and no wheezes Cardio Rate: regular rate Rhythm: regular rhythm Heart sounds: S1 normal heart sound present and S2 normal heart sound present GI Other: Abdomen is soft, with tenderness palpation in the right lower quadrant. Positive rebound and guarding. Hypoactive bowel sounds present in all 4 quadrants Inspection: Yes normal to inspection Skin General skin exam: no rashes or lesions noted Trauma: no lacerations or abrasions Wounds: no wounds Neuro General: patient oriented x3 and moves all extremities Cranial nerves: Yes CN's II-XII intact bilaterally and Yes Equal, round and reactive pupils present Cognition (Neuro): normal cognition Gait exam (Neuro): Normal gait present Motor exam (neuro): 5/5 motor strength present throughout and Pronator motor function not present Coordination: [id number] test normal and [id number] test normal Romberg Test: Negative Extrem General: Yes normal to inspection Right upper extremity: normal to inspection Left upper extremity: normal to inspection Right lower extremity: normal to inspection Left lower extremity: normal to inspection Course Reevaluation(s) Reevaluation #1: Patient still having nausea, given prolonged QTC, will medicate with Benadryl and Compazine. Patient is tearful, reports that he does not want to return home as he feels as though he is unable to take care of himself. He states that he did fall yesterday due to weakness in his lower extremities, reports positive head strike, denies loss of consciousness. He states that he has been frequently falling. Given recent fall, will obtain CT head and neck. He is neurologically intact, with no midline cervical spine tenderness. Time: 15:06 Reevaluation #2: Sign-out given to my colleague, Sade Resendiz PA-C pending CT head, C-spine, repeat EKG to assess QTC prolongation and magnesium level. Time: 17:02 Reevaluation #3: Patient's imaging and mag is negative. Patient to be evaluated by PT and CM. Time: 17:59 Additional Reevaluation(s): Physician observation continues. Patient is to be evaluated by physical therapy/case management for safe disposition as he feels unsafe to return home due to his weakness and recent falls. Per nursing, no issues overnight reported. Patient in no apparent distress. Respirations even, regular, and non-labored. No focal neuro deficits. Vital signs stable. Will continue to monitor. Medications Administered Discontinued Medications Generic Name Dose Route Start Last Admin Trade Name Farzana PRN Reason Stop Dose Admin Acetaminophen 975 mg 05/10/23 08:49 05/10/23 11:50 Acetaminophen 325 Mg Tablet PO 975 mg QID PRN Administration Pain, Moderate(Pain Scale 4-6) Atenolol 25 mg 05/10/23 09:00 05/10/23 09:12 Atenolol 25 Mg Tablet PO 25 mg DAILY JAMES Administration Protocol Diphenhydramine HCl 25 mg 05/09/23 15:41 05/09/23 16:23 Diphenhydramine Hcl 50 Mg/Ml Vial IVPUSH 05/09/23 15:42 25 mg ONCE ONE Administration Magnesium Sulfate 2 gm in 50 mls @ 150 mls/hr 05/09/23 10:38 05/09/23 12:17 Magnesium Sulfate/H2o IV 05/09/23 10:57 Infused ONCE ONE Infusion Sodium Chloride 1,000 mls @ 999 mls/hr 05/09/23 10:39 05/09/23 13:36 Ns IV 05/09/23 11:39 Infused .Q1H1M ONE Infusion Sodium Chloride 1,000 mls @ 999 mls/hr 05/09/23 15:36 05/09/23 17:35 Ns IV 05/09/23 16:36 Infused .Q1H1M ONE Infusion Morphine Sulfate 4 mg 05/09/23 12:07 05/09/23 12:31 Morphine Sulfate 4 Mg/Ml Cartridge IVPUSH 05/09/23 12:08 4 mg ONCE ONE Administration Protocol Morphine Sulfate 4 mg 05/09/23 23:25 05/09/23 23:49 Morphine Sulfate 4 Mg/Ml Cartridge IVPUSH 05/09/23 23:26 4 mg ONCE ONE Administration Protocol Pantoprazole Sodium 40 mg 05/09/23 23:25 05/09/23 23:51 Pantoprazole Sodium 40 Mg/10 Ml Vial IVPUSH 05/09/23 23:26 40 mg ONCE ONE Administration Prochlorperazine Edisylate 10 mg 05/09/23 15:41 05/09/23 16:23 Prochlorperazine Edisylate 10 Mg/2 Ml Vial IVPUSH 05/09/23 15:42 10 mg ONCE ONE Administration Prochlorperazine Edisylate 5 mg 05/09/23 23:25 05/09/23 23:57 Prochlorperazine Edisylate 10 Mg/2 Ml Vial IVPUSH 05/09/23 23:26 5 mg ONCE ONE Administration Vitamin D 25 mcg 05/10/23 09:00 05/10/23 09:12 Cholecalciferol (Vitamin D3) 25 Mcg Tablet PO 25 mcg DAILY JAMES Administration Medical Decision Making Medical Decision Making [facility] Narrative: This is a 53-year-old male, with a past medical history of hypertension, alcohol use disorder - no use in 5 years, MDD, GERD, and anxiety presenting to the emergency department with complaints of chest pain, abdominal pain, nausea, and vomiting x1 week. On arrival, patient tachycardic 12, blood pressure 150/94, temperature 96.1?. Patient is nontoxic appearing, however does have tenderness palpation in the right lower quadrant. Chest pain is episodic, nonradiating. ACS is considered however slightly, will obtain cardiac workup for rule out. He has not hypoxic, lungs are clear to auscultation bilaterally. Plan: Labs, chest x-ray, EKG, urinalysis, CT abdomen without contrast given patient has an allergy to IV contrast. EKG revealing a prolonged QTC at 659, patient given magnesium 2 g IV Differential Diagnosis Differential Diagnoses: The differential diagnosis associated with the presentation includes Appendicitis, gastroenteritis, diverticulitis, diverticulosis, obstruction, viral syndrome, NAOMI Lab Data MDM Lab Attestation statement: I reviewed the patient's lab results. Slight leukocytosis at 11.4, stable H&H, mild hyperglycemia at 143 05/09/23 09:22 05/09/23 09:22 Labs: Lab Results 05/09/23 05/09/23 05/09/23 Range/Units 09:22 15:13 18:09 WBC 11.4 H (4.8-10.8) X10*3/uL RBC 4.51 L (4.60-5.80) X10*6/uL Hgb 13.2 L (14.0-18.0) g/dl Hct 39.0 L (42.0-52.0) % MCV 86.5 (80.0-98.0) fL MCH 29.3 (27.0-33.0) pg MCHC 33.8 (31.0-36.0) g/dl RDW 15.5 (11.0-16.0) % Plt Count 279 (160-400) X10*3/uL MPV 9.0 L (9.4-12.4) fL Immature Gran % (Auto) 0.3 (0.0-0.4) % Neut % (Auto) 78.1 H (45-73) % Lymph % (Auto) 12.7 L (20-40) % [place] % (Auto) 5.2 (2-11) % Eos % (Auto) 3.3 (0-4) % Baso % (Auto) 0.4 (0-2) % Lymph # (Auto) 1.4 (1.2-4.9) X10*3/uL [place] # (Auto) 0.6 (0.1-1.2) X10*3/uL Eos # (Auto) 0.4 (0.0-0.4) X10*3/uL Baso # (Auto) 0.1 (0.0-0.2) X10*3/uL Abs Immat Gran (auto) 0.03 (0.00-0.03) X10*3/uL Absolute Neuts (auto) 8.9 H (2.0-8.3) x10*3/uL Absolute Nucleated RBC 0.000 (0.0-0.012) X10*3/uL Nucleated RBC % (auto) 0.0 (0.0-0.2) /100WBC Sodium 143 (135-145) mmol/L Potassium 3.1 L (3.3-5.1) mmol/L Chloride 104 (96-108) mmol/L Carbon Dioxide 28 (22-29) mmol/L Anion Gap 14 (12-20) BUN 3 L (9-16) mg/dL Creatinine 0.79 (0.5-1.4) mg/dL Estim Creat Clear Calc 91.9 Estimated GFR > 60 Random Glucose 143 H (60-115) mg/dL Calcium 9.7 (8.4-10.2) mg/dL Magnesium 1.7 (1.6-2.6) mg/dL Total Bilirubin 0.4 (0.0-1.0) mg/dL Direct Bilirubin 0.2 (0.0-0.5) mg/dL AST 18 (5-37) U/L ALT 17 (0-40) U/L Alkaline Phosphatase 70 (39-117) U/L Troponin I High Sens < 2.7 < 2.7 (<3.5-35.0) ng/L Total Protein 7.6 (6.5-8.0) g/dL Albumin 4.0 (3.5-5.0) g/dL Lipase 11 (8-78) U/L Urine Color Yellow Urine Appearance Clear Urine pH 6.5 (5.0-9.0) Ur Specific [place] 1.015 (1.005-1.025) Urine Protein Negative (Neg-Trace) mg/dL Urine Glucose (UA) Negative (Negative) mg/dL Urine Ketones Negative (Negative) mg/dL Urine Blood Negative (Negative) Urine Nitrite Negative (Negative) Ur Leukocyte Esterase Negative (Negative) Urine Opiates Screen POSITIVE H (Not Detect) Urine Fentanyl Screen POSITIVE H (Not Detect) Ur Barbiturates Screen Not Detected (Not Detect) Ur Phencyclidine Scrn Not Detected (Not Detect) Ur Amphetamines Screen Not Detected (Not Detect) U Benzodiazepines Scrn POSITIVE H (Not Detect) Urine Cocaine Screen POSITIVE H (Not Detect) U Marijuana (THC) Screen Not Detected (Not Detect) Ethyl Alcohol < 10 mg/dL COVID-19 (ERIN) Negative (Negative) COVID-19 Clin Com See Note Influenza Type A (TOMI) Negative (Negative) Influenza Type B (TOMI) Negative (Negative) Influenza A & B Note See Note Independent Interpretation I performed an independent interpretation of an: EKG Interpretation: EKG sinus tachycardia with short NV interval, with ventricular rate of 107 beats per minute, NV interval 104, QTC 659. Repeat EKG performed at 18 16, normal sinus rhythm at a ventricular rate of 88 beats per minute, NV interval 130, QTC 462, no ST elevation or depression. Radiology Impression Discussion of test interpretation with radiology: I have reviewed the radiologist's reading. Radiologist Impression: EXAMINATION: CT ABDOMEN AND PELVIS WITHOUT CONTRAST CLINICAL INFORMATION: Right lower quadrant pain, nausea and vomiting COMPARISON: Previous CT of the abdomen and pelvis June 2021 TECHNIQUE: Multidetector volumetric imaging was performed from the superior aspect of the liver through the pubic symphysis. Sagittal and coronal reformatted images were obtained on the technologist's workstation. This CT examination was performed using dose optimization techniques as appropriate, variously including the following: *Automated exposure control *Adjustment of mA and/or kV according to patient size (this includes techniques or standardized protocols for targeted exams where dose is matched to indication/reason for exam; i.e. extremities or head) *Use of iterative reconstruction technique DLP: 510 mGy-cm FINDINGS: LUNG BASES: Right base atelectasis. There may be wall thickening of the distal thoracic esophagus. LIVER, GALLBLADDER, AND BILIARY TREE: The liver is normal in size, shape, and attenuation. No focal hepatic lesion or biliary ductal dilatation is present. The gallbladder is unremarkable with no evidence of radiopaque gallstones, gallbladder wall thickening, or obvious pericholecystic inflammatory changes. PANCREAS: Fatty infiltration. Pancreas is otherwise unremarkable. SPLEEN: Unremarkable. ADRENAL GLANDS: Unremarkable. KIDNEYS AND URETERS: The kidneys are normal in size, shape, and attenuation. No hydronephrosis, hydroureter, or calculi seen. I lateral No imaging follow-up recommended. No perinephric stranding. BLADDER: Unremarkable. GASTROINTESTINAL TRACT: Mild diverticulosis of the colon. The small and large bowel are unremarkable. The appendix is unremarkable. ABDOMINAL WALL: Postsurgical changes following hernia repair, stable. LYMPH NODES: Normal. VASCULAR: Unremarkable. PELVIC VISCERA: Unremarkable. OSSEOUS STRUCTURES: Postsurgical changes with posterior fusion hardware at L3 mild degenerative changes spine. CT/CT abdomen pelvis wo IV con IMPRESSION: No cause of right lower quadrant pain seen. Normal appendix. Mild diverticulosis. Question mild wall thickening distal thoracic esophagus. Fleischner guidelines were followed. Dictated By: Olivia Snyder MD EXAMINATION: XR CHEST CLINICAL INFORMATION: Chest pain COMPARISON: Previous chest x-ray March 2023 TECHNIQUE: Frontal view of the chest was obtained. FINDINGS: Low lung volumes. Cardiac and mediastinal contours are unremarkable. Lungs are clear. No pleural effusion or pneumothorax. Old posterior right seventh rib fracture. XR/XR chest 1V IMPRESSION: No evidence for acute disease in the chest. Low lung volumes. Dictated By: Olivia Snyder MD Chronic Conditions Patient?s care impacted by: Hypertension Discharge Plan Discharge Clinical Impression: Weakness Patient Disposition: Left Against Medical Advice Prescriptions: No Action albuterol sulfate [Ventolin HFA] 90 mcg/actuation HFA aerosol inhaler 2 puff INHALATION Q4-6H PRN (Reason: Dyspnea) zolpidem 12.5 mg tablet,ext release multiphase 12.5 mg PO BEDTIME PRN (Reason: insomnia ) benztropine 0.5 mg tablet 0.5 mg PO BID diphenhydramine HCl 25 mg tablet 50 mg PO BEDTIME mirtazapine 45 mg tablet 45 mg PO BEDTIME melatonin 5 mg tablet 10 mg PO BEDTIME omeprazole 20 mg capsule,delayed release(DR/EC) 20 mg PO DAILY polyethylene glycol 3350 [ClearLax] 17 gram/dose powder 17 g PO BID PRN (Reason: Constipation) sennosides [senna] 8.6 mg tablet 8.6 mg PO BEDTIME PRN (Reason: Constipation) metformin 500 mg Tablet Extended Release 24 Hr 500 mg PO DAILY atenolol 25 mg Tablet 25 mg PO DAILY amitriptyline 100 mg Tablet 125 mg PO BEDTIME cholecalciferol (vitamin D3) [Vitamin D3] 25 mcg (1,000 unit) Tablet 25 mcg PO DAILY clonidine HCl 0.2 mg Tablet 0.2 mg PO TID acetaminophen 500 mg tablet 1,000 mg PO QID PRN (Reason: pain) Qty: 30 0RF hydroxyzine HCl 50 mg tablet 50 mg PO QID PRN (Reason: anxiety) Discharge Date/Time: 05/10/23 12:51
[2023-05-09 09:57] LABS: Alanine Aminotransferase 17 U/L (0-40); Alkaline Phosphatase 70 U/L (39-117); Anion Gap 14 (12-20); Aspartate Amino Transferase 18 U/L (5-37); Bilirubin Direct 0.2 mg/dL (0.0-0.5); Bilirubin Total 0.4 mg/dL (0.0-1.0); Blood Urea Nitrogen 3 mg/dL (9-16); Calcium 9.7 mg/dL (8.4-10.2); Carbon Dioxide 28 mmol/L (22-29); Chloride 104 mmol/L (96-108); Creatinine Clr Calc Pharmacy 91.9; Estimated Glomerular Filt Rate > 60; Glucose Random 143 mg/dL (60-115); Lipase 11 U/L (8-78); Potassium 3.1 mmol/L (3.3-5.1); Sodium 143 mmol/L (135-145); Total Protein 7.6 g/dL (6.5-8.0)
[2023-05-09 10:06] LABS: Troponin-I High Sensitivity < 2.7 ng/L (<3.5-35.0)
[2023-05-09 10:09] LABS: COVID-19 Test Negative (Negative); IDNOW Serial# 152EDE1D; IDNOW Serial# 9DB6401D; Influenza A Negative (Negative); Influenza B2 Negative (Negative)
[2023-05-09] MEDS: Magnesium Sulfate/H2O 2 GM/50 ML PIGGYBACK IV (11:57)
[2023-05-09] MEDS: 0.9 % Sodium Chloride 1,000 ML 999 ML IV ×2 (11:57→16:24)
--- NOTE | 2023-05-09 12:03 | PC.NURSE ---
this RN resumed care of pt at this time. a&ox4. vss and up to date aside from being tachycardic. sinus tachy on the library monitor. pt c/o 10/ left sided abd pain. provider notified/aware at this time. verbalizes n/v/d/chest pain x 5 days. medication/IVF administered per provider order. no sob/wob noted. respirations even and unlabored. call ibrahim placed within reach.
[2023-05-09] MEDS: Morphine Sulfate 4 MG/ML CARTRIDGE IVPUSH ×2 (12:31→23:49)
--- NOTE | 2023-05-09 13:27 | PC.NURSE ---
pt verbalizing pain level is still a 10/10 despite medication administration at this time. pt resting comfortably in no apparent distress w/ the lights dimmed. call ibrahim placed within reach. plan of care ongoing.
--- NOTE | 2023-05-09 15:27 | PC.NURSE ---
vss and up to date at this time aside from pt being hypertensive. nsr on the personnel monitor. repeat troponin obtained and sent to lab. pts till verbalizing 10/10 pain at this time. provider aware. pt aware of plan of care at this time. respirations remain even and unlabored. call ibrahim placed within reach.
[2023-05-09 15:38] LABS: Troponin-I High Sensitivity < 2.7 ng/L (<3.5-35.0)
[2023-05-09] MEDS: diphenhydrAMINE HCL 50 MG/ML VIAL 25 MG IVPUSH (16:23)
[2023-05-09] MEDS: Prochlorperazine Edisylate 10 MG/2 ML VIAL IVPUSH (16:23)
[2023-05-09 16:34] LABS: Ethanol < 10 mg/dL
--- NOTE | 2023-05-09 16:47 | PC.NURSE ---
pt returned from CT at this time. medication/IVF administered per provider order. respirations remain even and unlabored. call ibrahim placed within reach.
--- NOTE | 2023-05-09 16:57 | ECG_ITS ---
Test Reason : CHEST PAIN Blood Pressure : / mmHG Vent. Rate : 107 BPM Atrial Rate : 107 BPM P-R Int : 104 ms QRS Dur : 078 ms QT Int : 494 ms P-R-T Axes : 000 -13 049 degrees QTc Int : 659 ms Sinus tachycardia with short MS Minimal voltage criteria for LVH, may be normal variant ( R in aVL ) Prolonged QT Abnormal ECG When compared with ECG of 06-MAY-2023 19:52, Vent. rate has increased BY 47 BPM QT has lengthened Referred By: Angélica Mabyerry Electronically Signed By:MARIE LOCKWOOD MD
[2023-05-09 17:12] LABS: Magnesium 1.7 mg/dL (1.6-2.6)
[2023-05-09 18:18] LABS: Appearance Urine Clear; Color Urine Yellow; Glucose Urine UA Negative (Negative); Leukocyte Esterase Urine Negative (Negative); Nitrite Urine Negative (Negative); PH 6.5 (5.0-9.0); Specific Gravity - Urine 1.015 (1.005-1.025); Urine Blood Negative (Negative); Urine Ketones Negative (Negative); Urine Protein Negative (Neg-Trace)
[2023-05-09 18:28] LABS: Amphetamine Screen Urine Not Detected (Not Detect); Barbiturates, Urine Not Detected (Not Detect); Benzodiazepines Screen Urine POSITIVE (Not Detect); Cannabinoid Screen Urine Not Detected (Not Detect); Cocaine Screen Urine POSITIVE (Not Detect); Fentanyl, urine POSITIVE (Not Detect); Opiate Screen Urine POSITIVE (Not Detect); Phencyclidine Screen Urine Not Detected (Not Detect)
--- NOTE | 2023-05-09 23:30 | PC.NURSE ---
This adjusto writer operator assumed care of this Pt at 1900. Pt A&Ox3, reports intermittent squeezing 10/10 right sided ABD pain. Pt had one large episode of vomiting clear/yellow liquid. Provider Ro Resendiz made aware, new order given.
[2023-05-09] MEDS: Pantoprazole Sodium 40 MG/10 ML VIAL IVPUSH (23:51)
[2023-05-09] MEDS: Prochlorperazine Edisylate 10 MG/2 ML VIAL 5 MG IVPUSH (23:57)
[2023-05-10] VITALS: BP 138/84; PULSE 91; RESP 17; TEMP 37.1; O2SAT 94
--- NOTE | 2023-05-10 06:39 | PC.NURSE ---
Pt refused breakfast tray, states my stomach will hurt and I will vomit if I eat .
[2023-05-10 07:24] VITALS: BP 121/80; PULSE 79; RESP 16; TEMP 36.6; O2SAT 96
--- NOTE | 2023-05-10 07:44 | PC.NURSE ---
patient appears to be sleeping, respirations equal and unlabored. patient shows no signs of distress. patient awaiting pt/cm eval
--- NOTE | 2023-05-10 08:45 | PHA.MEDREC ---
Pharmacy Consult ? Medication Reconciliation Pharmacy has completed the medication reconciliation. SPOKE TO VISITING NURSE SAL ([phone]), CONFIRMED MEDS. PT NO LONGER ON DEPAKOTE, ZYPREXA, OR PROSTATE MEDS. JACEY
[2023-05-10] MEDS: atenoloL 25 MG TABLET PO (09:12)
[2023-05-10] MEDS: Cholecalciferol (Vitamin D3) 25 MCG TABLET PO (09:12)
[2023-05-10] MEDS: Acetaminophen 325 MG TABLET 975 MG PO (11:50)
--- NOTE | 2023-05-10 11:59 | PC.NURSE ---
patient eloped from ED with IV in arm in street clothes. patient found in elevator in different part of hospital by this RN and security. patient escorted back to ED, IV taken out. patient requesting to be d/c patient provider aware
--- NOTE | 2023-05-10 12:47 | PC.NURSE ---
patient not in room, appears patient has left.
--- NOTE | 2023-05-10 13:13 | MHC.CM.PN ---
CM MET WITH PT AND INDEPENDENT AGENT MUSIC EDUCATION BEFORE HE LEFT THE ED WITHOUT BEING EVALUATED BY P.T. PT LIVES ALONE , HAS NO HOME SERVICES. +HCP ON FILE AND PCP DR. RONDON AT [facility].
== END 2023-05-10 12:51 | disposition left against medical advice (07) ==
PROVIDERS: Physician Assistant Medical; Emergency Provider Student in an Organized Health Care Education/Training Program; PCP Internal Medicine
DX: R53.1 Weakness (principal); R00.0 Tachycardia, unspecified; Z91.81 History of falling; I10 Essential (primary) hypertension; F41.9 Anxiety disorder, unspecified; Z11.52 Encounter for screening for COVID-19; F17.210 Nicotine dependence, cigarettes, uncomplicated; Z79.84 Long term (current) use of oral hypoglycemic drugs; Z79.899 Other long term (current) drug therapy
CPT/HCPCS: 36415; 70450; 71045; 72125; 74176; 80048; 80076; 80307; 81003; 83690; 83735; 84484; 85025; 87502; 87635; 93005; 96361; 96374; 96375; 96376; 99285; C9113; J0737; J1200; J2270; J3475

== ENCOUNTER → 2023-05-09 09:05 | Outpatient (BNV) | payer MEDICAID, SELFPAY | PROVIDERS: Emergency Provider Student in an Organized Health Care Education/Training Program; PCP Internal Medicine; Visit Provider Internal Medicine Cardiovascular Disease | DX: R07.9 Chest pain, unspecified (principal); I45.81 Long QT syndrome | CPT/HCPCS: 93010 ==

== ENCOUNTER 2023-06-07 16:26 | Emergency (ER) | payer MEDICAID, SELFPAY ==
--- NOTE | ~2023-06-07 | CT_ITS ---
EXAMINATION: CT ABDOMEN AND PELVIS WITHOUT CONTRAST CLINICAL INFORMATION: Right-sided abdomen pain COMPARISON: Portions of previous surgery third 2023 TECHNIQUE: Multidetector volumetric imaging was performed from the superior aspect of the liver through the pubic symphysis. Sagittal and coronal reformatted images were obtained on the technologist's workstation. This CT examination was performed using dose optimization techniques as appropriate, variously including the following: *Automated exposure control *Adjustment of mA and/or kV according to patient size (this includes techniques or standardized protocols for targeted exams where dose is matched to indication/reason for exam; i.e. extremities or head) *Use of iterative reconstruction technique DLP: 505 mGy-cm FINDINGS: LUNG BASES: No suspicious abnormality in the visualized lower chest LIVER, GALLBLADDER, AND BILIARY TREE: No suspicious liver lesion. No cholelithiasis or biliary dilation. PANCREAS: Fatty replacement of the pancreas. SPLEEN: Within normal limits ADRENAL GLANDS: Normal KIDNEYS AND URETERS: There is no dilation of the urinary collecting system on either side. Partially exophytic round 4.5 cm fluid attenuating mass in the left kidney consistent with a cyst. This does not require any specific imaging follow-up BLADDER: There is gas within the urinary bladder. The bladder wall is slightly thickened. GASTROINTESTINAL TRACT: The small and large bowel are unremarkable. The appendix is unremarkable. ABDOMINAL WALL: No significant hernia is appreciated. LYMPH NODES: There are no enlarged abdominal or pelvic lymph nodes. There is no free intraperitoneal fluid. VASCULAR: There is no abdominal aortic aneurysm. PELVIC VISCERA: No suspicious abnormality. There is postoperative change in the space of Retzius between the abdominal wall and bladder. OSSEOUS STRUCTURES: Artifact related to lumbar instrumentation. CT/CT abdomen pelvis wo IV con IMPRESSION: No evidence of acute appendicitis or high-grade bowel obstruction. No urinary obstruction. Postoperative changes with gas in the urinary bladder. Fleischner guidelines were followed.
--- NOTE | 2023-06-07 16:29 | ECG_ITS ---
Test Reason : CHEST PAIN Blood Pressure : / mmHG Vent. Rate : 086 BPM Atrial Rate : 086 BPM P-R Int : 140 ms QRS Dur : 080 ms QT Int : 372 ms P-R-T Axes : 072 -01 036 degrees QTc Int : 445 ms Normal sinus rhythm Minimal voltage criteria for LVH, may be normal variant ( R in aVL ) Borderline ECG When compared with ECG of 09-MAY-2023 18:16, No significant change was found Referred By: Isacc Murphy Electronically Signed By:Scottie Figueroa
[2023-06-07 16:33] VITALS: BP 138/87; PULSE 86; RESP 18; TEMP 37; BMI 26.2
--- NOTE | 2023-06-07 16:34 | ED_ITS ---
HPI - General Adult General Chief complaint: General Medical Stated complaint: Tight chest pain, R sided flank pain Time Seen by Provider: 06/07/23 20:15 Source: patient Mode of arrival: ambulatory Limitations: no limitations History of Present Illness HPI narrative: 53 yold male with pmh of GERD, poiod disorder, BPH, alcohol abuse, schizoaffective disorderder, chronic abdominal pain presents to the ED for right sided abdominal pain. Patient denes any chest pain, shortness of breath, diarrhea, or symptoms. Related Data Home Medications Medication Instructions Recorded Confirmed hydroxyzine HCl 50 mg tablet 50 mg PO QID PRN anxiety 03/03/22 05/10/23 amitriptyline 100 mg tablet 125 mg PO BEDTIME 07/11/22 05/09/23 atenolol 25 mg tablet 25 mg PO DAILY 07/11/22 05/09/23 cholecalciferol (vitamin D3) 25 25 mcg PO DAILY 07/11/22 05/09/23 mcg (1,000 unit) tablet (Vitamin D3) clonidine HCl 0.2 mg tablet 0.2 mg PO TID 07/11/22 05/10/23 metformin 500 mg tablet,extended 500 mg PO DAILY 07/11/22 05/10/23 release 24 hr albuterol sulfate 90 mcg/actuation 2 puff inhalation Q4-6H PRN Dyspnea 05/09/23 05/09/23 aerosol inhaler (Ventolin HFA) zolpidem 12.5 mg tablet,extended 12.5 mg PO BEDTIME PRN insomnia 05/09/23 05/09/23 release,multiphase benztropine 0.5 mg tablet 0.5 mg PO BID 05/10/23 05/10/23 diphenhydramine HCl 25 mg tablet 50 mg PO BEDTIME 05/10/23 05/10/23 melatonin 5 mg tablet 10 mg PO BEDTIME 05/10/23 05/10/23 mirtazapine 45 mg tablet 45 mg PO BEDTIME 05/10/23 05/10/23 omeprazole 20 mg capsule,delayed 20 mg PO DAILY 05/10/23 05/10/23 release polyethylene glycol 3350 17 17 g PO BID PRN Constipation 05/10/23 05/10/23 gram/dose oral powder (ClearLax) sennosides 8.6 mg tablet (senna) 8.6 mg PO BEDTIME PRN Constipation 05/10/23 05/10/23 Previous Rx's Medication Instructions Recorded acetaminophen 500 mg tablet 1,000 mg (2 x 500 mg) PO QID PRN 03/23/23 pain #30 tabs acetaminophen 325 mg capsule 325 mg PO QID PRN pain 7 days #28 06/07/23 (Tylenol) caps Allergies Allergy/AdvReac Type Severity Reaction Status Date / Time trazodone [TRAZODONE] Allergy Severe FACIAL Verified 05/09/23 23:09 SWELLING, swelling cat dander [CATS] Allergy Intermediate FACIAL Verified 05/09/23 23:09 ITCHING doxepin [DOXEPIN] Allergy Intermediate WEIGHT Verified 05/09/23 23:09 GAIN/LEG SWELLING Iodinated Contrast Media Allergy Intermediate ITCHING Verified 05/09/23 23:09 [IV DYE, IODINE CONTAINING CONTRAST ] nitroglycerin [NITROGLYCERIN] Allergy Unknown UNKNOWN Verified 05/09/23 23:09 tramadol [TRAMADOL] Allergy Unknown UNKNOWN, Verified 05/09/23 23:09 dry mouth ibuprofen [From MOTRIN] AdvReac Intermediate GI UPSET Verified 05/09/23 23:09 quetiapine [From SEROQUEL] AdvReac Intermediate FACIAL Verified 05/09/23 23:09 SWELLING aspirin [ASPIRIN] AdvReac Mild Stomach Verified 05/09/23 23:09 Upset Ibuprofen Allergy Unknown stomach Uncoded 05/06/23 19:25 ache IV contrast Allergy Unknown Unknown Uncoded 05/06/23 19:25 Motrin Allergy Unknown stomach Uncoded 05/06/23 19:25 pain Review of Systems 2 Review of Systems: Right sided abdominal pain Yes all other systems are reviewed and are negative [facility] Past Medical History 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 GERD (gastroesophageal reflux disease) Anxiety Surgical History History of colonoscopy History of cystoscopy H/O umbilical hernia repair Family History Family History Father HTN (hypertension) Diabetes Mother HTN (hypertension) Stroke Alzheimer disease Heart disease Social History Social History Household Members: None Housing: Apartment Do you presently have visiting nurse or other home services: Yes Alcohol intake: never Comment: 1:1 sitter Patient Tobacco Use Status: Current everyday Tobacco user Tobacco use type: Cigarette Cigarette Packs Per Day: 1 Cigarettes Per Day: 20.0 Years Smoked: 9 e-Cigarette/Vaping Use: Never Used Second Hand Smoke Exposure: Yes Substance Use Type: Heroin and Opiates Advance Directives: Yes Advance Directives on File: Yes Advance Directives Date on File: 02/14/20 service: No Current occupational status: unemployed and disabled Sexual orientation: Straight/Heterosexual Physical Exam ED Vital Signs: Vital Signs - 24 hr 06/07/23 16:33 06/07/23 20:49 06/07/23 22:10 Temperature 98.6 F 98.1 F Pulse Rate 86 62 Respiratory Rate 18 18 Blood Pressure 138/87 Pulse Oximetry 98 99 Oxygen Delivery Method Room Air Room Air 06/07/23 22:12 Temperature Pulse Rate Respiratory Rate Blood Pressure 134/72 Pulse Oximetry Oxygen Delivery Method BMI result Body Mass Index 26.2 Const General: cooperative, healthy appearing, comfortable, no acute distress, well developed, alert and awake Orientation/consciousness: oriented to person, oriented to place, oriented to time and patient oriented x3 HENMT Head: Yes normal to inspection, Yes No palpable skull fracture present, Yes normocephalic, Yes atraumatic and No abrasion Eyes General: appearance normal, both eyes and all related structures Neck Neck: Yes normal visual inspection, Yes full ROM, Yes no lymphadenopathy, Yes no meningeal signs, Yes trachea midline, Yes supple, No anterior neck swelling and No tender Chest Chest palpation & inspection: normal inspection of the chest and normal palpation of entire chest wall Resp Effort & Inspection: normal respiratory effort and able to speak in complete sentences Auscultation: clear to auscultation bilaterally Cardio Jugular venous distension: no JVD Heart sounds: S1 normal heart sound present and S2 normal heart sound present GI Inspection: Yes normal to inspection Palpation (GI): Soft to palpation, not firm, Tenderness to palpation present (GI) in the RLQ and in the RUQ, no guarding and not rigid General: Yes no CVA tenderness Back/Spine/Pelvis Back: no CVA tenderness and No back tenderness Skin General skin exam: no rashes or lesions noted, elasticity normal and turgor normal Neuro General: oriented to person, oriented to place, oriented to time, patient oriented x3, gait normal, tone normal, moves all extremities, Normal light touch and pain sensation, no meningeal signs, no focal motor deficits, CN's II-XI intact bilaterally and normal sensation to monofilament Extrem General: Yes normal to inspection and Yes full ROM Psych Appearance: grossly normal, well kempt and not disheveled Course Course Course Narrative: RME- 53-year-old male presents for evaluation of right-sided chest pain and abdominal pain. He reports that the abdominal pain started about 2 weeks ago with associated nausea and vomiting. The chest pain started today. Plan for labs, EKG Medical Decision Making Medical Decision Making [facility] Narrative: 53-year-old male history of alcohol use disorder, opiate use disorder, depression, GERD presents ED for right-sided abdominal pain. Patient denies any chest pain or shortness of breath. Waiting for UA. Patient is sent for abdominal CT scan. 10:59pm: Abdominal CT scan shows no acute intrabdominal findings. Two troponins negative. EKG negtative STEMI. patient denies ever having chest pain. Patient expalined worrisome signs and informed to return to the ED if he has them. patient did not give urine and would like to be discharge. . patient informed to follow up [facility] PCP to have urine to test UTIi if he has urinary symptoms. Differential Diagnosis Differential Diagnoses: The differential diagnosis associated with the presentation includes (gallstones, appendicitis, chronic pain, SBO) Admission/Observation Consideration of admission/observation: Escalation of care including admission/observation considered Lab Data [facility] Lab Attestation statement: I reviewed the patient's lab results. 06/07/23 16:57 06/07/23 16:57 Labs: Lab Results 06/07/23 06/07/23 Range/Units 16:57 20:52 WBC 7.7 (4.8-10.8) X10*3/uL RBC 3.91 L (4.60-5.80) X10*6/uL Hgb 11.4 L (14.0-18.0) g/dl Hct 34.1 L (42.0-52.0) % MCV 87.2 (80.0-98.0) fL MCH 29.2 (27.0-33.0) pg MCHC 33.4 (31.0-36.0) g/dl RDW 14.5 (11.0-16.0) % Plt Count 244 (160-400) X10*3/uL MPV 9.0 L (9.4-12.4) fL Immature Gran % (Auto) 0.4 (0.0-0.4) % Neut % (Auto) 55.7 (45-73) % Lymph % (Auto) 31.9 (20-40) % Hand % (Auto) 8.4 (2-11) % Eos % (Auto) 3.1 (0-4) % Baso % (Auto) 0.5 (0-2) % Lymph # (Auto) 2.5 (1.2-4.9) X10*3/uL Hand # (Auto) 0.7 (0.1-1.2) X10*3/uL Eos # (Auto) 0.2 (0.0-0.4) X10*3/uL Baso # (Auto) 0.0 (0.0-0.2) X10*3/uL Abs Immat Gran (auto) 0.03 (0.00-0.03) X10*3/uL Absolute Neuts (auto) 4.3 (2.0-8.3) x10*3/uL Absolute Nucleated RBC 0.000 (0.0-0.012) X10*3/uL Nucleated RBC % (auto) 0.0 (0.0-0.2) /100WBC PT 12.3 (11.1-13.3) SEC INR 1.0 (0.9-1.1) Sodium 137 (135-145) mmol/L Potassium 3.3 (3.3-5.1) mmol/L Chloride 105 (96-108) mmol/L Carbon Dioxide 22 (22-29) mmol/L Anion Gap 13 (12-20) BUN 5 L (9-16) mg/dL Creatinine 0.81 (0.5-1.4) mg/dL Estim Creat Clear Calc 89.6 Estimated GFR > 60 Random Glucose 95 (60-115) mg/dL Calcium 8.7 D (8.4-10.2) mg/dL Total Bilirubin 0.2 (0.0-1.0) mg/dL AST 27 (5-37) U/L ALT 23 (0-40) U/L Alkaline Phosphatase 63 (39-117) U/L Troponin I High Sens < 2.7 < 2.7 (<3.5-35.0) ng/L Total Protein 7.0 (6.5-8.0) g/dL Albumin 3.8 (3.5-5.0) g/dL Lipase 15 (8-78) U/L Influenza Type A (PCR) NEGATIVE (Negative) Influenza Type B (PCR) NEGATIVE (Negative) RSV RNA Qual (PCR) NEGATIVE (Negative) SARS-CoV-2 RNA (RT-PCR) NEGATIVE (Negative) Independent Interpretation I performed an independent interpretation of an: EKG (Normal sinus rhythm. Negative STEMi) and CT Scan Radiology Impression Discussion of test interpretation with radiology: I have reviewed the radiologist's reading. Independent Historian Clinical information obtained from an independent historian. History obtained from or confirmed by: Other (patient) External Record Review External record reviewed: Other (Prior visits) Prescription Management I considered prescription management with: Pain Medication Discharge Plan Discharge Clinical Impression: Abdominal pain Patient Disposition: Home, Self-Care Instructions: Abdominal Pain (ED) Additional Instructions: Return to the ED immediately for any worsening abdominal pain, nausea, vomiting, diarrhea, blood in stool, any chest pain, shortness of breath, lower extremity, calf pain, coughing blood, hematuria, dysuria, testicular pain, penile discharge, or any other concerning symptoms. Prescriptions: New acetaminophen [Tylenol] 325 mg capsule 325 mg PO QID PRN (Reason: pain) 7 Days Qty: 28 0RF No Action albuterol sulfate [Ventolin HFA] 90 mcg/actuation HFA aerosol inhaler 2 puff INHALATION Q4-6H PRN (Reason: Dyspnea) zolpidem 12.5 mg tablet,ext release multiphase 12.5 mg PO BEDTIME PRN (Reason: insomnia ) benztropine 0.5 mg tablet 0.5 mg PO BID diphenhydramine HCl 25 mg tablet 50 mg PO BEDTIME mirtazapine 45 mg tablet 45 mg PO BEDTIME melatonin 5 mg tablet 10 mg PO BEDTIME omeprazole 20 mg capsule,delayed release(DR/EC) 20 mg PO DAILY polyethylene glycol 3350 [ClearLax] 17 gram/dose powder 17 g PO BID PRN (Reason: Constipation) sennosides [senna] 8.6 mg tablet 8.6 mg PO BEDTIME PRN (Reason: Constipation) metformin 500 mg Tablet Extended Release 24 Hr 500 mg PO DAILY atenolol 25 mg Tablet 25 mg PO DAILY amitriptyline 100 mg Tablet 125 mg PO BEDTIME cholecalciferol (vitamin D3) [Vitamin D3] 25 mcg (1,000 unit) Tablet 25 mcg PO DAILY clonidine HCl 0.2 mg Tablet 0.2 mg PO TID acetaminophen 500 mg tablet 1,000 mg PO QID PRN (Reason: pain) Qty: 30 0RF hydroxyzine HCl 50 mg tablet 50 mg PO QID PRN (Reason: anxiety) Interventions: ED Discharge Assessment Last Done: 06/07/23 23:13 Discharge Date/Time: 06/07/23 23:13 Print Language: Frisian
[2023-06-07 17:04] LABS: MANUAL DIFF FLAG NO
[2023-06-07 17:08] LABS: Basophils Percent Auto 0.5 % (0-2); Eosinophils Absolute Auto 0.2 X10*3/uL (0.0-0.4); Eosinophils Percent Auto 3.1 % (0-4); Hematocrit 34.1 % (42.0-52.0); Hemoglobin 11.4 g/dl (14.0-18.0); Imm Gran Abs Auto 0.03 X10*3/uL (0.00-0.03); Imm Gran Pct Auto 0.4 % (0.0-0.4); Lymphocytes Absolute Auto 2.5 X10*3/uL (1.2-4.9); Lymphocytes Percent Auto 31.9 % (20-40); Mean Corpuscular HGB Conc 33.4 g/dl (31.0-36.0); Mean Corpuscular Hemoglobin 29.2 pg (27.0-33.0); Mean Corpuscular Volume 87.2 fL (80.0-98.0); Monocytes Absolute Auto 0.7 X10*3/uL (0.1-1.2); Monocytes Percent Auto 8.4 % (2-11); Neutrophils Absolute Auto 4.3 x10*3/uL (2.0-8.3); Neutrophils Percent Auto 55.7 % (45-73); Platelet Count 244 X10*3/uL (160-400); Red Blood Count 3.91 X10*6/uL (4.60-5.80); Red Cell Distribution Width 14.5 % (11.0-16.0); White Blood Count 7.7 X10*3/uL (4.8-10.8)
[2023-06-07 17:13] LABS: Prothrombin Time 12.3 SEC (11.1-13.3)
[2023-06-07 17:25] LABS: Alanine Aminotransferase 23 U/L (0-40); Albumin Level 3.8 g/dL (3.5-5.0); Alkaline Phosphatase 63 U/L (39-117); Anion Gap 13 (12-20); Aspartate Amino Transferase 27 U/L (5-37); Bilirubin Total 0.2 mg/dL (0.0-1.0); Blood Urea Nitrogen 5 mg/dL (9-16); Calcium 8.7 mg/dL (8.4-10.2); Carbon Dioxide 22 mmol/L (22-29); Chloride 105 mmol/L (96-108); Creatinine Clr Calc Pharmacy 89.6; Estimated Glomerular Filt Rate > 60; Glucose Random 95 mg/dL (60-115); Lipase 15 U/L (8-78); Potassium 3.3 mmol/L (3.3-5.1); Sodium 137 mmol/L (135-145)
[2023-06-07 17:43] LABS: Troponin-I High Sensitivity < 2.7 ng/L (<3.5-35.0)
[2023-06-07 17:48] LABS: Influenza A PCR NEGATIVE (Negative); Influenza B PCR NEGATIVE (Negative); Resp Syncy Virus RNA Qual PCR NEGATIVE (Negative); SARS COV2 PCR INHOUSE NEGATIVE (Negative)
[2023-06-07 20:49] VITALS: O2SAT 98
[2023-06-07 21:17] LABS: Troponin-I High Sensitivity < 2.7 ng/L (<3.5-35.0)
[2023-06-07 22:10] VITALS: PULSE 62; RESP 18; TEMP 36.7; O2SAT 99
[2023-06-07 22:12] VITALS: BP 134/72
== END 2023-06-07 23:13 | disposition home or self-care (01) ==
PROVIDERS: Physician Assistant; Emergency Provider Internal Medicine; PCP Internal Medicine
DX: R07.89 Other chest pain (principal); R10.84 Generalized abdominal pain; Z79.899 Other long term (current) drug therapy; Z11.52 Encounter for screening for COVID-19; Z20.822 Contact with and (suspected) exposure to COVID-19
CPT/HCPCS: 0241U; 36415; 74176; 80053; 83690; 84484; 85025; 85610; 93005; 99283; 99284

== ENCOUNTER → 2023-06-07 16:29 | Outpatient (BNV) | payer MEDICAID, SELFPAY | PROVIDERS: Emergency Provider Internal Medicine; PCP Internal Medicine; Visit Provider Internal Medicine Cardiovascular Disease | DX: R07.89 Other chest pain (principal) | CPT/HCPCS: 93010 ==

== ENCOUNTER 2023-06-15 00:57 | Emergency (ER) | payer MEDICAID, SELFPAY ==
--- NOTE | 2023-06-15 | ECG_ITS ---
Test Reason : CHEST PAIN Blood Pressure : / mmHG Vent. Rate : 059 BPM Atrial Rate : 059 BPM P-R Int : 140 ms QRS Dur : 076 ms QT Int : 432 ms P-R-T Axes : 019 000 017 degrees QTc Int : 427 ms Sinus bradycardia Minimal voltage criteria for LVH, may be normal variant ( R in aVL ) Borderline ECG When compared with ECG of 07-JUN-2023 16:29, No significant change was found Referred By: Generic ED Physician Electronically Signed By:MARIE LOCKWOOD MD
[2023-06-15 01:00] VITALS: BP 103/58; BP 128/90; PULSE 60; PULSE 72; RESP 17; TEMP 36.4; O2SAT 97; O2SAT 98; BMI 25.5
[2023-06-15 01:32] LABS: MANUAL DIFF FLAG NO
[2023-06-15 01:33] LABS: Basophils Percent Auto 0.6 % (0-2); Eosinophils Absolute Auto 0.2 X10*3/uL (0.0-0.4); Eosinophils Percent Auto 3.1 % (0-4); Hematocrit 34.9 % (42.0-52.0); Hemoglobin 11.7 g/dl (14.0-18.0); Imm Gran Abs Auto 0.01 X10*3/uL (0.00-0.03); Imm Gran Pct Auto 0.1 % (0.0-0.4); Lymphocytes Absolute Auto 2.5 X10*3/uL (1.2-4.9); Lymphocytes Percent Auto 34.7 % (20-40); Mean Corpuscular HGB Conc 33.5 g/dl (31.0-36.0); Mean Corpuscular Volume 86.4 fL (80.0-98.0); Monocytes Absolute Auto 0.6 X10*3/uL (0.1-1.2); Monocytes Percent Auto 7.7 % (2-11); Neutrophils Absolute Auto 3.8 x10*3/uL (2.0-8.3); Neutrophils Percent Auto 53.8 % (45-73); Platelet Count 247 X10*3/uL (160-400); Red Blood Count 4.04 X10*6/uL (4.60-5.80); Red Cell Distribution Width 14.5 % (11.0-16.0); White Blood Count 7.1 X10*3/uL (4.8-10.8)
[2023-06-15 02:15] LABS: Alanine Aminotransferase 19 U/L (0-40); Albumin Level 3.8 g/dL (3.5-5.0); Alkaline Phosphatase 62 U/L (39-117); Anion Gap 14 (12-20); Aspartate Amino Transferase 21 U/L (5-37); Bilirubin Total 0.3 mg/dL (0.0-1.0); Blood Urea Nitrogen 22 mg/dL (9-16); Calcium 9.3 mg/dL (8.4-10.2); Carbon Dioxide 26 mmol/L (22-29); Chloride 102 mmol/L (96-108); Estimated Glomerular Filt Rate > 60; Glucose Random 91 mg/dL (60-115); Potassium 3.9 mmol/L (3.3-5.1); Sodium 138 mmol/L (135-145); Total Protein 7.1 g/dL (6.5-8.0)
[2023-06-15 03:27] LABS: Troponin-I High Sensitivity < 2.7 ng/L (<3.5-35.0)
--- NOTE | 2023-06-15 03:46 | ED.CHESTPAIN ---
HPI - Chest Pain General Chief Complaint: Chest Pain Stated Complaint: CP Time Seen by Provider: 06/15/23 03:46 Source: patient Mode of arrival: EMS Limitations: no limitations History of Present Illness HPI narrative: 53-year-old male with a history of alcohol use disorder, opiate use disorder, depression, GERD, anxiety, who presents emergency department for evaluation of chest pain and abdominal pain. Patient states that he has had a constant pressure-like pain on his chest for 2 days, he points to his sternum when asked to localize the pain. Patient also is complaining of right-sided abdominal pain. He states he has been constant for 2 days, describes this as a sharp pain associated with nausea vomiting but no diarrhea. He denied fever or chills. Denied frequency, urgency or dysuria. Patient was seen on 06/07/2023 for similar complaints, at that time he had negative cardiac workup and a CT scan of the abdomen pelvis which was unremarkable. In reviewing the patient's ER visits he is here frequently for abdominal pain and chest pain. This is a 6th ED visit this year. Related Data Home Medications Medication Instructions Recorded Confirmed hydroxyzine HCl 50 mg tablet 50 mg PO QID PRN anxiety 03/03/22 05/10/23 amitriptyline 100 mg tablet 125 mg PO BEDTIME 07/11/22 05/09/23 atenolol 25 mg tablet 25 mg PO DAILY 07/11/22 05/09/23 cholecalciferol (vitamin D3) 25 25 mcg PO DAILY 07/11/22 05/09/23 mcg (1,000 unit) tablet (Vitamin D3) clonidine HCl 0.2 mg tablet 0.2 mg PO TID 07/11/22 05/10/23 metformin 500 mg tablet,extended 500 mg PO DAILY 07/11/22 05/10/23 release 24 hr albuterol sulfate 90 mcg/actuation 2 puff inhalation Q4-6H PRN Dyspnea 05/09/23 05/09/23 aerosol inhaler (Ventolin HFA) zolpidem 12.5 mg tablet,extended 12.5 mg PO BEDTIME PRN insomnia 05/09/23 05/09/23 release,multiphase benztropine 0.5 mg tablet 0.5 mg PO BID 05/10/23 05/10/23 diphenhydramine HCl 25 mg tablet 50 mg PO BEDTIME 05/10/23 05/10/23 melatonin 5 mg tablet 10 mg PO BEDTIME 05/10/23 05/10/23 mirtazapine 45 mg tablet 45 mg PO BEDTIME 05/10/23 05/10/23 omeprazole 20 mg capsule,delayed 20 mg PO DAILY 05/10/23 05/10/23 release polyethylene glycol 3350 17 17 g PO BID PRN Constipation 05/10/23 05/10/23 gram/dose oral powder (ClearLax) sennosides 8.6 mg tablet (senna) 8.6 mg PO BEDTIME PRN Constipation 05/10/23 05/10/23 Previous Rx's Medication Instructions Recorded acetaminophen 500 mg tablet 1,000 mg (2 x 500 mg) PO QID PRN 03/23/23 pain #30 tabs acetaminophen 325 mg capsule 325 mg PO QID PRN pain 7 days #28 06/07/23 (Tylenol) caps Allergies Allergy/AdvReac Type Severity Reaction Status Date / Time trazodone [TRAZODONE] Allergy Severe FACIAL Verified 06/15/23 01:08 SWELLING, swelling cat dander [CATS] Allergy Intermediate FACIAL Verified 06/15/23 01:08 ITCHING doxepin [DOXEPIN] Allergy Intermediate WEIGHT Verified 06/15/23 01:08 GAIN/LEG SWELLING Iodinated Contrast Media Allergy Intermediate ITCHING Verified 06/15/23 01:08 [IV DYE, IODINE CONTAINING CONTRAST ] nitroglycerin [NITROGLYCERIN] Allergy Unknown UNKNOWN Verified 06/15/23 01:08 tramadol [TRAMADOL] Allergy Unknown UNKNOWN, Verified 06/15/23 01:08 dry mouth ibuprofen [From MOTRIN] AdvReac Intermediate GI UPSET Verified 06/15/23 01:08 quetiapine [From SEROQUEL] AdvReac Intermediate FACIAL Verified 06/15/23 01:08 SWELLING aspirin [ASPIRIN] AdvReac Mild Stomach Verified 06/15/23 01:08 Upset Ibuprofen Allergy Unknown stomach Uncoded 06/15/23 01:08 ache IV contrast Allergy Unknown Unknown Uncoded 06/15/23 01:08 Motrin Allergy Unknown stomach Uncoded 06/15/23 01:08 pain PMFSH Past Medical History 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 GERD (gastroesophageal reflux disease) Anxiety Surgical History History of colonoscopy History of cystoscopy H/O umbilical hernia repair Family History Family History Father HTN (hypertension) Diabetes Mother HTN (hypertension) Stroke Alzheimer disease Heart disease Social History Social History Household Members: None Housing: Apartment Do you presently have visiting nurse or other home services: Yes Alcohol intake: never Comment: 1:1 sitter Patient Tobacco Use Status: Current everyday Tobacco user Tobacco use type: Cigarette Cigarette Packs Per Day: 1 Cigarettes Per Day: 20.0 Years Smoked: 9 Smoked in Last 30 Days: Yes e-Cigarette/Vaping Use: Never Used Second Hand Smoke Exposure: Yes Use of substances other than those prescribed or required for medical reasons: No Substance Use Type: Heroin and Opiates Advance Directives: Yes Advance Directives on File: Yes Advance Directives Date on File: 02/14/20 service: No Current occupational status: unemployed and disabled Sexual orientation: Straight/Heterosexual Physical Exam Vital Signs: Vital Signs: Last Vital Signs Temp 97.6 F 06/15/23 01:00 Pulse 97 06/15/23 04:03 Resp 20 06/15/23 04:03 BP 94/55 L 06/15/23 04:03 Pulse Ox 97 06/15/23 04:03 O2 Del Method Room Air 06/15/23 04:03 BMI result Body Mass Index 25.5 Vital signs were normal Exam: General: Awake, alert in no distress Head: Normocephalic, atraumatic EENT: PERRL, Lids normal, sclera normal, conjunctiva normal, nose normal , ears normal, throat without erythema or exudates Neck: Supple, no adenopathy Lung: breath sounds symmetric, no wheezing, rales or rhonchi Chest: symmetric movement, nontender Heart: regular rate and rhythm, normal S1, S2 no murmurs or rubs Abdomen: soft, non-tender, nondistended, normal bowel sounds Back: no vertebral tenderness, no CVAT Extremities: no deformities, moves all extremities symmetrically Neuro: Awake, alert, oriented, normal speech, cranial nerves intact, moves all extremities symmetrically Psych: Pleasant, cooperative Medical Decision Making Medical Decision Making [facility] Narrative: 53-year-old male with a history of alcohol use disorder, opiate use disorder, depression, GERD, anxiety, who presents emergency department for evaluation of pressure-like chest pain x2 days which is constant and constant, sharp, right-sided associated with nausea and vomiting In reviewing the patient's ER visits he is here frequently for abdominal pain and chest pain. This is a 6th ED visit this year. He was seen on 06/07/2023 for abdominal pain had a negative CT scan. Vital signs were normal. Physical exam was unremarkable. Differential diagnosis: ?Includes but is not limited to myocardial infarction, myocardial ischemia, musculoskeletal pain chronic abdominal pain, gastritis, pancreatitis Following evaluation was ordered: CBC, CMP, troponin, EKG Course: My independent interpretation patient's laboratory evaluation is as follows: Anemia with an H&H of 11.7 and 34.9. Elevated BUN of 22. High sensitive troponin I was below detectable limits. Twelve EKG was unremarkable. Patient's chest pain is most likely musculoskeletal, do not have a clear etiology for his abdominal pain but the patient has been here frequently with similar complaints and had a negative workup. Patient was advised to take Tylenol ibuprofen for his pain. He was given printed and verbal instructions and discharged home. Admission/Observation Consideration of admission/observation: Escalation of care including admission/observation considered Lab Data [facility] Lab Attestation statement: I reviewed the patient's lab results. 06/15/23 01:19 06/15/23 01:54 Labs: Lab Results 06/15/23 06/15/23 Range/Units 01:19 01:54 WBC 7.1 (4.8-10.8) X10*3/uL RBC 4.04 L (4.60-5.80) X10*6/uL Hgb 11.7 L (14.0-18.0) g/dl Hct 34.9 L (42.0-52.0) % MCV 86.4 (80.0-98.0) fL MCH 29.0 (27.0-33.0) pg MCHC 33.5 (31.0-36.0) g/dl RDW 14.5 (11.0-16.0) % Plt Count 247 (160-400) X10*3/uL MPV 9.0 L (9.4-12.4) fL Immature Gran % (Auto) 0.1 (0.0-0.4) % Neut % (Auto) 53.8 (45-73) % Lymph % (Auto) 34.7 (20-40) % Hockley % (Auto) 7.7 (2-11) % Eos % (Auto) 3.1 (0-4) % Baso % (Auto) 0.6 (0-2) % Lymph # (Auto) 2.5 (1.2-4.9) X10*3/uL [place] # (Auto) 0.6 (0.1-1.2) X10*3/uL Eos # (Auto) 0.2 (0.0-0.4) X10*3/uL Baso # (Auto) 0.0 (0.0-0.2) X10*3/uL Abs Immat Gran (auto) 0.01 (0.00-0.03) X10*3/uL Absolute Neuts (auto) 3.8 (2.0-8.3) x10*3/uL Absolute Nucleated RBC 0.000 (0.0-0.012) X10*3/uL Nucleated RBC % (auto) 0.0 (0.0-0.2) /100WBC Sodium 138 (135-145) mmol/L Potassium 3.9 (3.3-5.1) mmol/L Chloride 102 (96-108) mmol/L Carbon Dioxide 26 (22-29) mmol/L Anion Gap 14 (12-20) BUN 22 H (9-16) mg/dL Creatinine 0.93 (0.5-1.4) mg/dL Estim Creat Clear Calc 78.0 Estimated GFR > 60 Random Glucose 91 (60-115) mg/dL Calcium 9.3 D (8.4-10.2) mg/dL Total Bilirubin 0.3 (0.0-1.0) mg/dL AST 21 (5-37) U/L ALT 19 (0-40) U/L Alkaline Phosphatase 62 (39-117) U/L Troponin I High Sens < 2.7 (<3.5-35.0) ng/L Total Protein 7.1 (6.5-8.0) g/dL Albumin 3.8 (3.5-5.0) g/dL Independent Interpretation I performed an independent interpretation of an: EKG Interpretation: My independent interpretation the patient's 12 EKG done at 01:11 hours is as follows: Sinus bradycardia with a rate of 59, normal IN interval, QRS duration QTC interval, no ST segment elevation, no ST segment depression, no significant T-wave abnormalities, no PACs, no PVCs Chronic Conditions Patient?s care impacted by: Other (Opiate use disorder, alcohol use disorder, anxiety) Discharge Plan Discharge Clinical Impression: Chest pain Abdominal pain Qualifiers: Abdominal location: right lower quadrant Qualified Code(s): R10.31 - Right lower quadrant pain Patient Disposition: Home, Self-Care Instructions: Abdominal Pain (ED) Additional Instructions: Your blood work was normal. Your EKG was unremarkable. You had a CT scan of your abdomen pelvis 1 week prior that did not show any significant abnormalities. At this time I do not have a clear cause for your pain but I do not think that your chest pain is due to your heart and that your abdominal pain is due to any significant surgical process. Take ibuprofen 200 mg pills, 2 pills every 6 hours as needed for pain or fever. Take Tylenol (acetaminophen) 500 mg pills, 2 pills every 6 hours as needed for pain or fever. Follow-up with your doctor in 2 days. Please return to the emergency department if your symptoms get worse or if you develop any symptoms that are concerning to you. Prescriptions: No Action albuterol sulfate [Ventolin HFA] 90 mcg/actuation HFA aerosol inhaler 2 puff INHALATION Q4-6H PRN (Reason: Dyspnea) zolpidem 12.5 mg tablet,ext release multiphase 12.5 mg PO BEDTIME PRN (Reason: insomnia ) benztropine 0.5 mg tablet 0.5 mg PO BID diphenhydramine HCl 25 mg tablet 50 mg PO BEDTIME mirtazapine 45 mg tablet 45 mg PO BEDTIME melatonin 5 mg tablet 10 mg PO BEDTIME omeprazole 20 mg capsule,delayed release(DR/EC) 20 mg PO DAILY polyethylene glycol 3350 [ClearLax] 17 gram/dose powder 17 g PO BID PRN (Reason: Constipation) sennosides [senna] 8.6 mg tablet 8.6 mg PO BEDTIME PRN (Reason: Constipation) acetaminophen [Tylenol] 325 mg capsule 325 mg PO QID PRN (Reason: pain) 7 Days Qty: 28 0RF metformin 500 mg Tablet Extended Release 24 Hr 500 mg PO DAILY atenolol 25 mg Tablet 25 mg PO DAILY amitriptyline 100 mg Tablet 125 mg PO BEDTIME cholecalciferol (vitamin D3) [Vitamin D3] 25 mcg (1,000 unit) Tablet 25 mcg PO DAILY clonidine HCl 0.2 mg Tablet 0.2 mg PO TID acetaminophen 500 mg tablet 1,000 mg PO QID PRN (Reason: pain) Qty: 30 0RF hydroxyzine HCl 50 mg tablet 50 mg PO QID PRN (Reason: anxiety) Interventions: ED Discharge Assessment Last Done: 06/15/23 04:57 Discharge Date/Time: 06/15/23 04:57
--- NOTE | 2023-06-15 04:01 | PC.NURSE ---
late entry- pt biba from home reporting chest pain for 2 days that radiates into the abdomen, pt reports 6 episodes of vomiting, and nausea. pt denies diarrhea. pt a&ox4, respirations even and unlabored. pt reports being seen [place] [facility] [place] similar symptoms. 22G placed in right AC, labs obtained and sent to lab.
[2023-06-15 04:03] VITALS: BP 94/55; PULSE 97; RESP 20; O2SAT 97
== END 2023-06-15 04:57 | disposition home or self-care (01) ==
PROVIDERS: Emergency Provider Emergency Medicine Emergency Medical Services; PCP Internal Medicine
DX: R07.9 Chest pain, unspecified (principal); R10.31 Right lower quadrant pain; F10.20 Alcohol dependence, uncomplicated; F11.10 Opioid abuse, uncomplicated
CPT/HCPCS: 36415; 80053; 84484; 85025; 93005; 99283; 99285

== ENCOUNTER → 2023-06-15 01:11 | Outpatient (BNV) | payer MEDICAID, SELFPAY | PROVIDERS: Emergency Provider Emergency Medicine Emergency Medical Services; PCP Internal Medicine; Visit Provider Internal Medicine Cardiovascular Disease | DX: R07.9 Chest pain, unspecified (principal) | CPT/HCPCS: 93010 ==

== ENCOUNTER 2023-06-16 17:46 | Emergency (ER) | payer MEDICAID, SELFPAY ==
--- NOTE | ~2023-06-16 | CT_ITS ---
EXAMINATION: CT HEAD WITHOUT CONTRAST CLINICAL INFORMATION: Fall. COMPARISON: CT head May 09, 2023 TECHNIQUE: Contiguous axial imaging was performed from the skull base to vertex without intravenous administration of contrast. Coronal and sagittal reformatted images are performed at the CT scanner. [This CT examination was performed using dose optimization techniques as appropriate, variously including the following: *Automated exposure control *Adjustment of mA and/or kV according to patient size (this includes techniques or standardized protocols for targeted exams where dose is matched to indication/reason for exam; i.e. extremities or head) *Use of iterative reconstruction technique] DLP: 597 mGy-cm. FINDINGS: There is no evidence of acute intracranial hemorrhage or territorial infarction. No abnormal mass-effect or midline shift is seen. Queen to white matter differentiation is well preserved. No extra-axial fluid collections are identified. The ventricles are normal in size. There is no abnormal attenuation within the brain parenchyma. There is no osseous abnormality. The mastoid air cells and visualized portions of the paranasal sinuses are well-aerated. CT/CT head/brain wo IV con IMPRESSION: No acute intracranial pathology.
--- NOTE | ~2023-06-16 | XR_ITS ---
EXAMINATION: XR CHEST CLINICAL INFORMATION: Chest pain COMPARISON: Chest radiograph dated 05/09/2023. TECHNIQUE: 2 views of the chest were obtained. FINDINGS: Heart size is normal. The lungs are clear. No pleural effusion or pneumothorax. No acute osseous abnormality. XR/XR chest 2V IMPRESSION: No acute cardiopulmonary disease. Stable appearance of the heart and lungs.
[2023-06-16 18:03] VITALS: BP 118/72; PULSE 75; O2SAT 97
[2023-06-16 19:32] VITALS: BP 101/66; PULSE 57; RESP 18; TEMP 36.1; O2SAT 98; BMI 27.3
--- NOTE | 2023-06-16 19:37 | ECG_ITS ---
Test Reason : CHEST PAIN Blood Pressure : / mmHG Vent. Rate : 057 BPM Atrial Rate : 057 BPM P-R Int : 142 ms QRS Dur : 084 ms QT Int : 442 ms P-R-T Axes : 002 -05 016 degrees QTc Int : 430 ms Sinus bradycardia Minimal voltage criteria for LVH, may be normal variant ( R in aVL ) Borderline ECG When compared with ECG of 15-JUN-2023 01:11, No significant change was found Referred By: Generic ED Physician Electronically Signed By:MARIE LOCKWOOD MD
--- NOTE | 2023-06-16 19:52 | ED_ITS ---
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 Patient reports that he fell 3 times today He states that he gets dizzy when he walks causing him to fall backwards He reports that he struck his head on 1 of the falls but did not lose consciousness He complains of 10/10 pain ?all over but especially in my knees. ? Denies any history of vertigo. Denies any fevers or chills Denies any vomiting, diarrhea but does endorse chest pain abdominal pain Related Data Home Medications Medication Instructions Recorded Confirmed hydroxyzine HCl 50 mg tablet 50 mg PO QID PRN anxiety 03/03/22 05/10/23 amitriptyline 100 mg tablet 125 mg PO BEDTIME 07/11/22 05/09/23 atenolol 25 mg tablet 25 mg PO DAILY 07/11/22 05/09/23 cholecalciferol (vitamin D3) 25 25 mcg PO DAILY 07/11/22 05/09/23 mcg (1,000 unit) tablet (Vitamin D3) clonidine HCl 0.2 mg tablet 0.2 mg PO TID 07/11/22 05/10/23 metformin 500 mg tablet,extended 500 mg PO DAILY 07/11/22 05/10/23 release 24 hr albuterol sulfate 90 mcg/actuation 2 puff inhalation Q4-6H PRN Dyspnea 05/09/23 05/09/23 aerosol inhaler (Ventolin HFA) zolpidem 12.5 mg tablet,extended 12.5 mg PO BEDTIME PRN insomnia 05/09/23 05/09/23 release,multiphase benztropine 0.5 mg tablet 0.5 mg PO BID 05/10/23 05/10/23 diphenhydramine HCl 25 mg tablet 50 mg PO BEDTIME 05/10/23 05/10/23 melatonin 5 mg tablet 10 mg PO BEDTIME 05/10/23 05/10/23 mirtazapine 45 mg tablet 45 mg PO BEDTIME 05/10/23 05/10/23 omeprazole 20 mg capsule,delayed 20 mg PO DAILY 05/10/23 05/10/23 release polyethylene glycol 3350 17 17 g PO BID PRN Constipation 05/10/23 05/10/23 gram/dose oral powder (ClearLax) sennosides 8.6 mg tablet (senna) 8.6 mg PO BEDTIME PRN Constipation 05/10/23 05/10/23 Previous Rx's Medication Instructions Recorded acetaminophen 500 mg tablet 1,000 mg (2 x 500 mg) PO QID PRN 03/23/23 pain #30 tabs acetaminophen 325 mg capsule 325 mg PO QID PRN pain 7 days #28 06/07/23 (Tylenol) caps Allergies Allergy/AdvReac Type Severity Reaction Status Date / Time trazodone [TRAZODONE] Allergy Severe FACIAL Verified 06/16/23 19:36 SWELLING, swelling cat dander [CATS] Allergy Intermediate FACIAL Verified 06/16/23 19:36 ITCHING doxepin [DOXEPIN] Allergy Intermediate WEIGHT Verified 06/16/23 19:36 GAIN/LEG SWELLING Iodinated Contrast Media Allergy Intermediate ITCHING Verified 06/16/23 19:36 [IV DYE, IODINE CONTAINING CONTRAST ] nitroglycerin [NITROGLYCERIN] Allergy Unknown UNKNOWN Verified 06/16/23 19:36 tramadol [TRAMADOL] Allergy Unknown UNKNOWN, Verified 06/16/23 19:36 dry mouth ibuprofen [From MOTRIN] AdvReac Intermediate GI UPSET Verified 06/16/23 19:36 quetiapine [From SEROQUEL] AdvReac Intermediate FACIAL Verified 06/16/23 19:36 SWELLING aspirin [ASPIRIN] AdvReac Mild Stomach Verified 06/16/23 19:36 Upset Ibuprofen Allergy Unknown stomach Uncoded 06/15/23 01:08 ache IV contrast Allergy Unknown Unknown Uncoded 06/15/23 01:08 Motrin Allergy Unknown stomach Uncoded 06/15/23 01:08 pain Review of Systems 2 Constitutional: Constitutional: Reports body ache(s), Denies chills, Denies fever(s) and Reports frequent falls Eyes: Eyes: Denies blurry vision ENT: Reports dizziness Cardiovascular: Cardiovascular: Reports chest pain and Denies dyspnea Respiratory: Respiratory: Denies cough and Denies dyspnea Gastrointestinal: Gastrointestinal: Reports abdominal pain, Denies nausea and Denies vomiting Musculoskeletal: Musculoskeletal: Denies back pain Integumentary/Breasts: Skin/Breast: Denies rash Neurologic: Denies Abnormal speech present, Reports dizziness and Reports frequent falls PMFSH Past Medical History 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 GERD (gastroesophageal reflux disease) Anxiety Surgical History History of colonoscopy History of cystoscopy H/O umbilical hernia repair Family History Family History Father HTN (hypertension) Diabetes Mother HTN (hypertension) Stroke Alzheimer disease Heart disease Social History Social History Household Members: None Housing: Apartment Do you presently have visiting nurse or other home services: Yes Alcohol intake: never Comment: 1:1 sitter Patient Tobacco Use Status: Current everyday Tobacco user Tobacco use type: Cigarette Cigarette Packs Per Day: 1 Cigarettes Per Day: 20.0 Years Smoked: 9 Smoked in Last 30 Days: Yes e-Cigarette/Vaping Use: Never Used Second Hand Smoke Exposure: Yes Use of substances other than those prescribed or required for medical reasons: No Substance Use Type: Heroin and Opiates Advance Directives: Yes Advance Directives on File: Yes Advance Directives Date on File: 02/14/20 service: No Current occupational status: unemployed and disabled Sexual orientation: Straight/Heterosexual Physical Exam 2 Vital Signs: Vital Signs: Last Vital Signs Temp 98.3 F 06/16/23 22:52 Pulse 71 06/17/23 01:44 Resp 17 06/17/23 01:44 BP 114/69 06/17/23 01:44 Pulse Ox 99 06/17/23 01:44 O2 Del Method Room Air 06/17/23 01:44 BMI result Body Mass Index 27.3 Const: General: healthy appearing, comfortable, no acute distress, alert and awake Nutritional Appearance: well nourished Orientation/consciousness: p atient oriented x3 HEENT: Head: Yes normocephalic and Yes atraumatic Eyes: Eyelids: Yes eyelids normal Conjunctivae: conjunctivae normal S clerae: sclerae normal Corneas: corneas normal Pupils: Equal, round and reactive pupils present EOM: EOMs intact bilaterally Neck: Neck: Yes full ROM Resp: Effort & Inspection: normal respiratory effort, able to speak in complete sentences, no audible wheezes and not labored Auscultation: clear to auscultation bilaterally Cardio: Rate: regular rate Rhythm: regular rhythm GI: Inspection: No distended Palpation (GI): Soft to palpation, not firm, nontender, no guarding and not rigid Auscultation: normoactive bowel sounds Skin: General skin exam: elasticity normal Neuro: General: patient oriented x3 Cranial nerves: Yes Equal, round and reactive pupils present and Yes Bilaterally intact EOM present Cognition (Neuro): normal cognition Speech: No Abnormal speech present Gait exam (Neuro): Normal gait present and not ataxic Motor exam (neuro): 5/5 motor strength present throughout and Pronator motor function not present C oordination: [id number] test normal and Romberg test negative Course Course Course Narrative: RME: 53-year-old male presents to ED for chest and abdominal pain for 1 day. Patient states this is chronic. Labs EKG ordered. Reevaluation(s) Reevaluation #1: Patient's blood pressure greatly improved with IV fluids, he is stable for discharge. The orthostatic hypotension was likely the cause of his dizziness. Time: 01:34 Medications Administered Discontinued Medications Generic Name Dose Route Start Last Admin Trade Name Freq PRN Reason Stop Dose Admin Sodium Chloride 1,000 mls @ 999 mls/hr 06/17/23 00:30 06/17/23 01:57 Ns IV 06/17/23 02:30 Infused .Q1H1M JAMES Infusion Meclizine HCl 25 mg 06/16/23 23:19 06/16/23 23:43 Meclizine Hcl 25 Mg Tablet PO 06/16/23 23:20 25 mg ONCE ONE Administration Oxycodone HCl 5 mg 06/16/23 23:18 06/16/23 23:43 Oxycodone Hcl Immed Release 5 Mg Tablet PO 06/16/23 23:19 5 mg ONCE ONE Administration Medical Decision Making Medical Decision Making MDM Narrative: 53-year-old male presents for evaluation of multiple falls, chest pain, abdominal pain and dizziness with falling. The patient requests ?pain medicines stronger than Tylenol several times. His neurologic and cerebellar exams are reassuring on exam. Will get a CT scan given the reported falls and has strike. The patient has a mild anemia consistent with his recent baseline. He has no significant electrolyte abnormalities, troponin negative. Chest x-ray is clear, there are no obvious signs of trauma. Will get orthostatic vital signs given reported dizziness. I have a low suspicion for cerebellar stroke as previously reported his physical exam is benign. Will check orthostatics Differential Diagnosis Differential Diagnoses: The differential diagnosis associated with the presentation includes Vertigo Peripheral vertigo Central vertigo Posterior CVA Orthostasis Chest pain Viral syndrome Admission/Observation Consideration of admission/observation: Escalation of care including admission/observation considered Consider admission for orthostatic hypotension and dizziness. This improved with IV fluids and did not want admission Lab Data MDM Lab Attestation statement: I reviewed the patient's lab results. See above 06/16/23 19:53 06/16/23 19:53 Labs: Lab Results 06/16/23 06/16/23 Range/Units 19:53 23:36 WBC 7.4 (4.8-10.8) X10*3/uL RBC 3.87 L (4.60-5.80) X10*6/uL Hgb 11.5 L (14.0-18.0) g/dl Hct 33.9 L (42.0-52.0) % MCV 87.6 (80.0-98.0) fL MCH 29.7 (27.0-33.0) pg MCHC 33.9 (31.0-36.0) g/dl RDW 14.4 (11.0-16.0) % Plt Count 229 (160-400) X10*3/uL MPV 8.8 L (9.4-12.4) fL Immature Gran % (Auto) 0.3 (0.0-0.4) % Neut % (Auto) 53.4 (45-73) % Lymph % (Auto) 36.4 (20-40) % [place] % (Auto) 6.2 (2-11) % Eos % (Auto) 3.2 (0-4) % Baso % (Auto) 0.5 (0-2) % Lymph # (Auto) 2.7 (1.2-4.9) X10*3/uL [place] # (Auto) 0.5 (0.1-1.2) X10*3/uL Eos # (Auto) 0.2 (0.0-0.4) X10*3/uL Baso # (Auto) 0.0 (0.0-0.2) X10*3/uL Abs Immat Gran (auto) 0.02 (0.00-0.03) X10*3/uL Absolute Neuts (auto) 4.0 (2.0-8.3) x10*3/uL Absolute Nucleated RBC 0.000 (0.0-0.012) X10*3/uL Nucleated RBC % (auto) 0.0 (0.0-0.2) /100WBC Sodium 139 (135-145) mmol/L Potassium 3.8 (3.3-5.1) mmol/L Chloride 103 (96-108) mmol/L Carbon Dioxide 28 (22-29) mmol/L Anion Gap 12 (12-20) BUN 13 (9-16) mg/dL Creatinine 0.93 (0.5-1.4) mg/dL Estim Creat Clear Calc 84.6 Estimated GFR > 60 Random Glucose 92 (60-115) mg/dL Calcium 9.7 (8.4-10.2) mg/dL Total Bilirubin 0.3 (0.0-1.0) mg/dL Direct Bilirubin 0.1 (0.0-0.5) mg/dL AST 21 (5-37) U/L ALT 18 (0-40) U/L Alkaline Phosphatase 66 (39-117) U/L Troponin I High Sens < 2.7 (<3.5-35.0) ng/L Total Protein 7.6 (6.5-8.0) g/dL Albumin 4.2 (3.5-5.0) g/dL Lipase 9 (8-78) U/L COVID-19 (ERIN) Negative (Negative) COVID-19 Clin Com See Note Influenza Type A (TOMI) Negative (Negative) Influenza Type B (TOMI) Negative (Negative) Influenza A & B Note See Note Independent Interpretation I performed an independent interpretation of an: EKG (Sinus bradycardia with a rate of [address] segment changes.) Prescription Management I considered prescription management with: Pain Medication Discharge Plan Discharge Clinical Impression: Chest pain, Orthostatic hypotension Patient Disposition: Home, Self-Care Instructions: Chest Pain (ED), Dizziness (ED) Additional Instructions: Take all your medications as prescribed. Your workup was negative. Your blood pressure dropped slightly when you were standing which was likely the cause of your dizziness. This was treated with IV fluids Follow-up with your primary doctor Prescriptions: No Action albuterol sulfate [Ventolin HFA] 90 mcg/actuation HFA aerosol inhaler 2 puff INHALATION Q4-6H PRN (Reason: Dyspnea) zolpidem 12.5 mg tablet,ext release multiphase 12.5 mg PO BEDTIME PRN (Reason: insomnia ) benztropine 0.5 mg tablet 0.5 mg PO BID diphenhydramine HCl 25 mg tablet 50 mg PO BEDTIME mirtazapine 45 mg tablet 45 mg PO BEDTIME melatonin 5 mg tablet 10 mg PO BEDTIME omeprazole 20 mg capsule,delayed release(DR/EC) 20 mg PO DAILY polyethylene glycol 3350 [ClearLax] 17 gram/dose powder 17 g PO BID PRN (Reason: Constipation) sennosides [senna] 8.6 mg tablet 8.6 mg PO BEDTIME PRN (Reason: Constipation) acetaminophen [Tylenol] 325 mg capsule 325 mg PO QID PRN (Reason: pain) 7 Days Qty: 28 0RF metformin 500 mg Tablet Extended Release 24 Hr 500 mg PO DAILY atenolol 25 mg Tablet 25 mg PO DAILY amitriptyline 100 mg Tablet 125 mg PO BEDTIME cholecalciferol (vitamin D3) [Vitamin D3] 25 mcg (1,000 unit) Tablet 25 mcg PO DAILY clonidine HCl 0.2 mg Tablet 0.2 mg PO TID acetaminophen 500 mg tablet 1,000 mg PO QID PRN (Reason: pain) Qty: 30 0RF hydroxyzine HCl 50 mg tablet 50 mg PO QID PRN (Reason: anxiety) Interventions: ED Discharge Assessment Last Done: 06/17/23 01:44 Discharge Date/Time: 06/17/23 01:58
[2023-06-16 19:59] LABS: MANUAL DIFF FLAG NO
[2023-06-16 20:00] LABS: Basophils Percent Auto 0.5 % (0-2); Eosinophils Absolute Auto 0.2 X10*3/uL (0.0-0.4); Eosinophils Percent Auto 3.2 % (0-4); Hematocrit 33.9 % (42.0-52.0); Hemoglobin 11.5 g/dl (14.0-18.0); Imm Gran Abs Auto 0.02 X10*3/uL (0.00-0.03); Imm Gran Pct Auto 0.3 % (0.0-0.4); Lymphocytes Absolute Auto 2.7 X10*3/uL (1.2-4.9); Lymphocytes Percent Auto 36.4 % (20-40); Mean Corpuscular HGB Conc 33.9 g/dl (31.0-36.0); Mean Corpuscular Hemoglobin 29.7 pg (27.0-33.0); Mean Corpuscular Volume 87.6 fL (80.0-98.0); Mean Platelet Volume 8.8 fL (9.4-12.4); Monocytes Absolute Auto 0.5 X10*3/uL (0.1-1.2); Monocytes Percent Auto 6.2 % (2-11); Neutrophils Percent Auto 53.4 % (45-73); Platelet Count 229 X10*3/uL (160-400); Red Blood Count 3.87 X10*6/uL (4.60-5.80); Red Cell Distribution Width 14.4 % (11.0-16.0); White Blood Count 7.4 X10*3/uL (4.8-10.8)
[2023-06-16 20:14] LABS: Alanine Aminotransferase 18 U/L (0-40); Albumin Level 4.2 g/dL (3.5-5.0); Alkaline Phosphatase 66 U/L (39-117); Anion Gap 12 (12-20); Aspartate Amino Transferase 21 U/L (5-37); Bilirubin Direct 0.1 mg/dL (0.0-0.5); Bilirubin Total 0.3 mg/dL (0.0-1.0); Blood Urea Nitrogen 13 mg/dL (9-16); Calcium 9.7 mg/dL (8.4-10.2); Carbon Dioxide 28 mmol/L (22-29); Chloride 103 mmol/L (96-108); Creatinine Clr Calc Pharmacy 84.6; Estimated Glomerular Filt Rate > 60; Glucose Random 92 mg/dL (60-115); Lipase 9 U/L (8-78); Potassium 3.8 mmol/L (3.3-5.1); Sodium 139 mmol/L (135-145); Total Protein 7.6 g/dL (6.5-8.0)
[2023-06-16 20:26] LABS: Troponin-I High Sensitivity < 2.7 ng/L (<3.5-35.0)
[2023-06-16 22:52] VITALS: BP 108/70; PULSE 54; RESP 16; TEMP 36.8; O2SAT 99
[2023-06-16] MEDS: oxyCODONE HCl Immed Release 5 MG TABLET PO (23:43)
[2023-06-16] MEDS: Meclizine HCl 25 MG TABLET PO (23:43)
[2023-06-16 23:59] LABS: COVID-19 Test Negative (Negative); IDNOW Serial# 08D9AD1C; IDNOW Serial# 152EDE1D; Influenza A Negative (Negative); Influenza B2 Negative (Negative)
[2023-06-17 00:27] VITALS: BP 93/63; PULSE 58
[2023-06-17 00:28] VITALS: BP 84/52; BP 90/60; PULSE 63; PULSE 71
[2023-06-17 00:39] VITALS: BP 93/63; PULSE 58; RESP 14; O2SAT 95
[2023-06-17] MEDS: 0.9 % Sodium Chloride 1,000 ML 999 ML IV ×2 (00:39→00:46)
--- NOTE | 2023-06-17 00:42 | PC.NURSE ---
Pt aox4 resting at the bedside. Pt BP noted to be 84/52. Provider made aware. 20G IV line placed on the L AC. NS bolus started as ordered by provider. Pt reports feeling dizzy with generalized body aches, 12/14. Monitoring is ongoing.
[2023-06-17 01:24] VITALS: BP 124/73; PULSE 59; RESP 16
--- NOTE | 2023-06-17 01:24 | PC.NURSE ---
Pt aox4 resting at the bedside. Reporting generalized body aches. BP improvement noted 124/73. NS running. Monitoring is ongoing.
[2023-06-17 01:44] VITALS: BP 114/69; PULSE 71; RESP 17; O2SAT 99
== END 2023-06-17 01:58 | disposition home or self-care (01) ==
PROVIDERS: Physician Assistant; Emergency Provider Emergency Medicine; PCP Internal Medicine
DX: I95.1 Orthostatic hypotension (principal); R07.89 Other chest pain; R42 Dizziness and giddiness; R51.9 Headache, unspecified; F17.210 Nicotine dependence, cigarettes, uncomplicated; Z11.52 Encounter for screening for COVID-19; Z79.899 Other long term (current) drug therapy
CPT/HCPCS: 36415; 70450; 71046; 80048; 80076; 83690; 84484; 85025; 87502; 87635; 93005; 96360; 99284; 99285

== ENCOUNTER → 2023-06-16 19:37 | Outpatient (BNV) | payer MEDICAID, SELFPAY | PROVIDERS: Emergency Provider Emergency Medicine; PCP Internal Medicine; Visit Provider Internal Medicine Cardiovascular Disease | DX: R07.9 Chest pain, unspecified (principal) | CPT/HCPCS: 93010 ==

== ENCOUNTER 2023-06-17 14:46 | Outpatient (RCR) | payer MEDICAID, SELFPAY ==
--- NOTE | ~2023-06-17 | XR_ITS ---
EXAMINATION: XR KNEE, LEFT CLINICAL INFORMATION: History of fall yesterday. Left knee pain, worsening COMPARISON: None available. TECHNIQUE: Four views of the left knee. FINDINGS: There is mild loss of medial and patellofemoral compartment joint space with mild periarticular spurring. No visible acute fracture, dislocation or loose body seen. No abnormal joint effusion. No bony erosive changes. XR/XR knee LT 4V IMPRESSION: Mild degenerative changes medial and patellofemoral compartment. No visible acute fracture, dislocation or subluxation seen.
== END 2024-01-08 12:37 | disposition home or self-care (01) ==
LOC: HO.PT 14:46
PROVIDERS: PCP Internal Medicine; Visit Provider Physician Assistant
DX: M17.12 Unilateral primary osteoarthritis, left knee (principal); G89.29 Other chronic pain
CPT/HCPCS: 73564

== ENCOUNTER 2023-06-20 15:07 | Emergency (ER) | payer MEDICAID, SELFPAY ==
--- NOTE | ~2023-06-20 | US_ITS ---
EXAMINATION: US ABDOMEN LIMITED CLINICAL INFORMATION: Right upper quadrant pain. COMPARISON: None available. TECHNIQUE: Real-time imaging of the right upper quadrant abdominal viscera. FINDINGS: PANCREAS: No suspicious abnormality in the expected region of the pancreas. The pancreas is moderately obscured LIVER: Normal. The liver is normal in size. The liver contour is normal. Parenchymal echogenicity is normal. No focal hepatic lesion. There is no intrahepatic biliary duct dilatation seen. GALLBLADDER: Normal. The gallbladder is physiologically distended without evidence of stones, sludge, polyps, wall thickening or pericholecystic fluid. There is no reported tenderness to transducer pressure over the gallbladder COMMON BILE DUCT: Normal in caliber measuring 0.4 cm in diameter. RIGHT KIDNEY: There is an approximately 1.1 cm cyst in the lower pole. This does not require any specific imaging follow-up No hydronephrosis. No renal calculi or focal parenchymal lesions. The kidney measures 11.0 cm in maximum dimension. FREE FLUID: None. US/US abdomen limited IMPRESSION: No etiology for right upper quadrant pain demonstrated. Specifically no cholelithiasis or biliary dilation
--- NOTE | ~2023-06-20 | XR_ITS ---
EXAMINATION: XR CHEST CLINICAL INFORMATION: Reason for Exam chest pain COMPARISON: Chest radiograph 06/16/2023 and 05/09/2023 TECHNIQUE: 2 views of the chest FINDINGS: Lines and tubes: Partially imaged lumbar fusion hardware. Clear lungs. No pleural effusion. No pneumothorax. Unchanged cardiomediastinal silhouette. Remote 8th right rib fracture deformity. XR/XR chest 2V IMPRESSION: * Clear lungs.
--- NOTE | 2023-06-20 15:08 | ECG_ITS ---
Test Reason : chest pain Blood Pressure : / mmHG Vent. Rate : 073 BPM Atrial Rate : 073 BPM P-R Int : 146 ms QRS Dur : 082 ms QT Int : 402 ms P-R-T Axes : 019 -02 035 degrees QTc Int : 442 ms Normal sinus rhythm Minimal voltage criteria for LVH, may be normal variant ( R in aVL ) Borderline ECG When compared with ECG of 16-JUN-2023 19:42, No significant change was found Referred By: Hemalatha Durbin Electronically Signed By:MARIE LOCKWOOD MD
[2023-06-20 15:19] LABS: MANUAL DIFF FLAG NO
[2023-06-20 15:21] LABS: Basophils Absolute Auto 0.1 X10*3/uL (0.0-0.2); Basophils Percent Auto 0.6 % (0-2); Eosinophils Absolute Auto 0.4 X10*3/uL (0.0-0.4); Eosinophils Percent Auto 4.3 % (0-4); Hematocrit 38.3 % (42.0-52.0); Hemoglobin 12.6 g/dl (14.0-18.0); Imm Gran Abs Auto 0.03 X10*3/uL (0.00-0.03); Imm Gran Pct Auto 0.3 % (0.0-0.4); Lymphocytes Absolute Auto 3.1 X10*3/uL (1.2-4.9); Lymphocytes Percent Auto 31.4 % (20-40); Mean Corpuscular HGB Conc 32.9 g/dl (31.0-36.0); Mean Corpuscular Volume 88.2 fL (80.0-98.0); Mean Platelet Volume 9.1 fL (9.4-12.4); Monocytes Absolute Auto 0.7 X10*3/uL (0.1-1.2); Neutrophils Absolute Auto 5.6 x10*3/uL (2.0-8.3); Neutrophils Percent Auto 56.4 % (45-73); Platelet Count 307 X10*3/uL (160-400); Red Blood Count 4.34 X10*6/uL (4.60-5.80); Red Cell Distribution Width 14.6 % (11.0-16.0); White Blood Count 9.9 X10*3/uL (4.8-10.8)
[2023-06-20 15:31] LABS: Prothrombin Time 12.5 SEC (11.1-13.3)
[2023-06-20 15:36] LABS: Alanine Aminotransferase 24 U/L (0-40); Albumin Level 4.3 g/dL (3.5-5.0); Alkaline Phosphatase 69 U/L (39-117); Anion Gap 14 (12-20); Aspartate Amino Transferase 20 U/L (5-37); Bilirubin Total 0.4 mg/dL (0.0-1.0); Blood Urea Nitrogen < 3 mg/dL (9-16); Calcium 9.9 mg/dL (8.4-10.2); Carbon Dioxide 29 mmol/L (22-29); Chloride 101 mmol/L (96-108); Estimated Glomerular Filt Rate > 60; Glucose Random 102 mg/dL (60-115); Potassium 3.9 mmol/L (3.3-5.1); Sodium 140 mmol/L (135-145)
[2023-06-20 15:39] VITALS: BP 113/70; PULSE 71; RESP 16; TEMP 36.3; O2SAT 98; BMI 25.3
--- NOTE | 2023-06-20 15:40 | ED.GENADULT ---
HPI - General Adult General Chief complaint: Chest Pain Stated complaint: chest and abd pain Time Seen by Provider: 06/20/23 17:57 Source: patient Mode of arrival: ambulatory Limitations: no limitations History of Present Illness HPI narrative: Patient with chronic pain comes here very often for multiple complaints comes here for chest pain abdominal pain asking for oxycodone Related Data Home Medications Medication Instructions Recorded Confirmed hydroxyzine HCl 50 mg tablet 50 mg PO QID PRN anxiety 03/03/22 05/10/23 amitriptyline 100 mg tablet 125 mg PO BEDTIME 07/11/22 05/09/23 atenolol 25 mg tablet 25 mg PO DAILY 07/11/22 05/09/23 cholecalciferol (vitamin D3) 25 25 mcg PO DAILY 07/11/22 05/09/23 mcg (1,000 unit) tablet (Vitamin D3) clonidine HCl 0.2 mg tablet 0.2 mg PO TID 07/11/22 05/10/23 metformin 500 mg tablet,extended 500 mg PO DAILY 07/11/22 05/10/23 release 24 hr albuterol sulfate 90 mcg/actuation 2 puff inhalation Q4-6H PRN Dyspnea 05/09/23 05/09/23 aerosol inhaler (Ventolin HFA) zolpidem 12.5 mg tablet,extended 12.5 mg PO BEDTIME PRN insomnia 05/09/23 05/09/23 release,multiphase benztropine 0.5 mg tablet 0.5 mg PO BID 05/10/23 05/10/23 diphenhydramine HCl 25 mg tablet 50 mg PO BEDTIME 05/10/23 05/10/23 melatonin 5 mg tablet 10 mg PO BEDTIME 05/10/23 05/10/23 mirtazapine 45 mg tablet 45 mg PO BEDTIME 05/10/23 05/10/23 Previous Rx's Medication Instructions Recorded acetaminophen 500 mg tablet 1,000 mg (2 x 500 mg) PO QID PRN 03/23/23 pain #30 tabs acetaminophen 325 mg capsule 325 mg PO QID PRN pain 7 days #28 06/07/23 (Tylenol) caps omeprazole 20 mg capsule,delayed 20 mg PO DAILY 90 days #90 caps 06/18/23 release polyethylene glycol 3350 17 17 g PO BID PRN Constipation 90 06/18/23 gram/dose oral powder (ClearLax) days #510 grams sennosides 8.6 mg tablet (senna) 8.6 mg PO BEDTIME PRN Constipation 06/18/23 90 days #90 tabs ondansetron 4 mg disintegrating 4 mg PO Q6-8H PRN nausea and 06/20/23 tablet vomiting #10 tabs Allergies Allergy/AdvReac Type Severity Reaction Status Date / Time trazodone [TRAZODONE] Allergy Severe FACIAL Verified 06/20/23 15:42 SWELLING, swelling cat dander [CATS] Allergy Intermediate FACIAL Verified 06/20/23 15:42 ITCHING doxepin [DOXEPIN] Allergy Intermediate WEIGHT Verified 06/20/23 15:42 GAIN/LEG SWELLING Iodinated Contrast Media Allergy Intermediate ITCHING Verified 06/20/23 15:42 [IV DYE, IODINE CONTAINING CONTRAST ] nitroglycerin [NITROGLYCERIN] Allergy Unknown UNKNOWN Verified 06/20/23 15:42 tramadol [TRAMADOL] Allergy Unknown UNKNOWN, Verified 06/20/23 15:42 dry mouth ibuprofen [From MOTRIN] AdvReac Intermediate GI UPSET Verified 06/20/23 15:42 quetiapine [From SEROQUEL] AdvReac Intermediate FACIAL Verified 06/20/23 15:42 SWELLING aspirin [ASPIRIN] AdvReac Mild Stomach Verified 06/20/23 15:42 Upset Ibuprofen Allergy Unknown stomach Uncoded 06/20/23 15:42 ache IV contrast Allergy Unknown Unknown Uncoded 06/20/23 15:42 Motrin Allergy Unknown stomach Uncoded 06/20/23 15:42 pain Review of Systems Review of Systems: Yes all other systems are reviewed and are negative [facility] Past Medical History 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 GERD (gastroesophageal reflux disease) Anxiety Surgical History History of colonoscopy History of cystoscopy H/O umbilical hernia repair Family History Family History Father HTN (hypertension) Diabetes Mother HTN (hypertension) Stroke Alzheimer disease Heart disease Social History Social History Household Members: None Housing: Apartment Do you presently have visiting nurse or other home services: Yes Alcohol intake: never Comment: 1:1 sitter Patient Tobacco Use Status: Current everyday Tobacco user Tobacco use type: Cigarette Cigarette Packs Per Day: 1 Cigarettes Per Day: 20.0 Years Smoked: 9 Smoked in Last 30 Days: Yes e-Cigarette/Vaping Use: Never Used Second Hand Smoke Exposure: Yes Use of substances other than those prescribed or required for medical reasons: No Substance Use Type: Heroin and Opiates Advance Directives: Yes Advance Directives on File: Yes Advance Directives Date on File: 02/14/20 service: No Current occupational status: unemployed and disabled Sexual orientation: Straight/Heterosexual Physical Exam ED Vital Signs: Vital Signs - 24 hr 06/20/23 15:39 06/20/23 18:05 06/20/23 18:14 Temperature 97.4 F 98.3 F 97.7 F Pulse Rate 71 63 64 Respiratory Rate 16 19 16 Blood Pressure 113/70 132/76 132/76 Pulse Oximetry 98 100 100 Oxygen Delivery Method Room Air Room Air Room Air 06/20/23 19:54 Temperature 97.7 F Pulse Rate 63 Respiratory Rate 18 Blood Pressure 134/83 Pulse Oximetry 99 Oxygen Delivery Method Room Air BMI result Body Mass Index 25.3 Appearance: Alert. Oriented X3. No acute distress. Eyes: PERRLA, No Nystagmus ENT: Pharynx normal. Oral Mucosa moist Neck: Normal inspection. Neck supple. CVS: Normal heart rate and rhythm. Pulses normal. Respiratory: No respiratory distress. Equal air entry bilateral, no wheezing/rales/rhonchi Abdomen: Soft and nontender. Bowel sounds are present, no mass palpable, no CVA tenderness Skin: Skin warm and dry. Normal skin color. Normal skin turgor. Extremities: No lower extremity edema. No calf tenderness Neuro: Oriented X 3. No motor deficit. No sensory deficit.No cerebellar signs , cranial nerves II-XII intact Course Course Course Narrative: This is a rapid medical exam: Additional HPI, ROS, PE not included below will be deferred to primary provider. Patient is a 53-year-old male with history of alcohol dependence, opioid abuse, GERD, dysphagia presenting to the ED with complaint of RUQ abdominal pain x 2 weeks and chest pain since this morning, also complains of nausea and dizziness. Plan: EKG, labs, CXR, U/S, viral swabs Medications Administered Discontinued Medications Generic Name Dose Route Start Last Admin Trade Name Farzana PRN Reason Stop Dose Admin Ondansetron HCl 4 mg 06/20/23 19:38 06/20/23 19:42 Ondansetron Odt 4 Mg Tab.Carol HUNTERINGU 06/20/23 19:39 4 mg ONCE ONE Administration Oxycodone HCl 10 mg 06/20/23 19:37 06/20/23 19:42 Oxycodone Hcl Immed Release 5 Mg Tablet PO 06/20/23 19:38 10 mg ONCE ONE Administration Medical Decision Making Medical Decision Making [facility] Narrative: Patient has chronic pain with narcotic seeking behavior workup negative discharge patient home Lab Data [facility] Lab Attestation statement: I reviewed the patient's lab results. 06/20/23 15:15 06/20/23 15:15 Labs: Lab Results 06/20/23 Range/Units 15:15 WBC 9.9 (4.8-10.8) X10*3/uL RBC 4.34 L (4.60-5.80) X10*6/uL Hgb 12.6 L (14.0-18.0) g/dl Hct 38.3 L (42.0-52.0) % MCV 88.2 (80.0-98.0) fL MCH 29.0 (27.0-33.0) pg MCHC 32.9 (31.0-36.0) g/dl RDW 14.6 (11.0-16.0) % Plt Count 307 D (160-400) X10*3/uL MPV 9.1 L (9.4-12.4) fL Immature Gran % (Auto) 0.3 (0.0-0.4) % Neut % (Auto) 56.4 (45-73) % Lymph % (Auto) 31.4 (20-40) % [place] % (Auto) 7.0 (2-11) % Eos % (Auto) 4.3 H (0-4) % Baso % (Auto) 0.6 (0-2) % Lymph # (Auto) 3.1 (1.2-4.9) X10*3/uL [place] # (Auto) 0.7 (0.1-1.2) X10*3/uL Eos # (Auto) 0.4 (0.0-0.4) X10*3/uL Baso # (Auto) 0.1 (0.0-0.2) X10*3/uL Abs Immat Gran (auto) 0.03 (0.00-0.03) X10*3/uL Absolute Neuts (auto) 5.6 (2.0-8.3) x10*3/uL Absolute Nucleated RBC 0.000 (0.0-0.012) X10*3/uL Nucleated RBC % (auto) 0.0 (0.0-0.2) /100WBC PT 12.5 (11.1-13.3) SEC INR 1.0 (0.9-1.1) Sodium 140 (135-145) mmol/L Potassium 3.9 (3.3-5.1) mmol/L Chloride 101 (96-108) mmol/L Carbon Dioxide 29 (22-29) mmol/L Anion Gap 14 (12-20) BUN < 3 L (9-16) mg/dL Creatinine 1.06 (0.5-1.4) mg/dL Estim Creat Clear Calc TNP Estimated GFR > 60 Random Glucose 102 (60-115) mg/dL Calcium 9.9 (8.4-10.2) mg/dL Total Bilirubin 0.4 (0.0-1.0) mg/dL AST 20 (5-37) U/L ALT 24 (0-40) U/L Alkaline Phosphatase 69 (39-117) U/L Troponin I High Sens < 2.7 (<3.5-35.0) ng/L Total Protein 8.0 (6.5-8.0) g/dL Albumin 4.3 (3.5-5.0) g/dL Influenza Type A (PCR) NEGATIVE (Negative) Influenza Type B (PCR) NEGATIVE (Negative) RSV RNA Qual (PCR) NEGATIVE (Negative) SARS-CoV-2 RNA (RT-PCR) NEGATIVE (Negative) Discharge Plan Discharge Clinical Impression: Chronic chest pain Patient Disposition: Home, Self-Care Instructions: Chronic Pain (ED) Additional Instructions: Continue taking your medications and follow-up with your PCP Prescriptions: New ondansetron 4 mg tablet,disintegrating 4 mg PO Q6-8H PRN (Reason: nausea and vomiting) Qty: 10 0RF No Action sennosides [senna] 8.6 mg tablet 8.6 mg PO BEDTIME PRN (Reason: Constipation) 90 Days Qty: 90 1RF polyethylene glycol 3350 [ClearLax] 17 gram/dose powder 17 g PO BID PRN (Reason: Constipation) 90 Days Qty: 510 1RF omeprazole 20 mg capsule,delayed release(DR/EC) 20 mg PO DAILY 90 Days Qty: 90 1RF albuterol sulfate [Ventolin HFA] 90 mcg/actuation HFA aerosol inhaler 2 puff INHALATION Q4-6H PRN (Reason: Dyspnea) zolpidem 12.5 mg tablet,ext release multiphase 12.5 mg PO BEDTIME PRN (Reason: insomnia ) benztropine 0.5 mg tablet 0.5 mg PO BID diphenhydramine HCl 25 mg tablet 50 mg PO BEDTIME mirtazapine 45 mg tablet 45 mg PO BEDTIME melatonin 5 mg tablet 10 mg PO BEDTIME acetaminophen [Tylenol] 325 mg capsule 325 mg PO QID PRN (Reason: pain) 7 Days Qty: 28 0RF metformin 500 mg Tablet Extended Release 24 Hr 500 mg PO DAILY atenolol 25 mg Tablet 25 mg PO DAILY amitriptyline 100 mg Tablet 125 mg PO BEDTIME cholecalciferol (vitamin D3) [Vitamin D3] 25 mcg (1,000 unit) Tablet 25 mcg PO DAILY clonidine HCl 0.2 mg Tablet 0.2 mg PO TID acetaminophen 500 mg tablet 1,000 mg PO QID PRN (Reason: pain) Qty: 30 0RF hydroxyzine HCl 50 mg tablet 50 mg PO QID PRN (Reason: anxiety) Interventions: ED Discharge Assessment Last Done: 06/20/23 19:54 Discharge Date/Time: 06/20/23 19:56
[2023-06-20 15:41] LABS: Troponin-I High Sensitivity < 2.7 ng/L (<3.5-35.0)
[2023-06-20 16:34] LABS: Influenza A PCR NEGATIVE (Negative); Influenza B PCR NEGATIVE (Negative); Resp Syncy Virus RNA Qual PCR NEGATIVE (Negative); SARS COV2 PCR INHOUSE NEGATIVE (Negative)
[2023-06-20 18:05] VITALS: BP 132/76; PULSE 63; RESP 19; TEMP 36.8; O2SAT 100
[2023-06-20 18:14] VITALS: BP 132/76; PULSE 64; RESP 16; TEMP 36.5; O2SAT 100
[2023-06-20] MEDS: oxyCODONE HCl Immed Release 5 MG TABLET 10 MG PO (19:42)
[2023-06-20] MEDS: Ondansetron ODT 4 MG TAB.RAPDIS TRANSLINGU (19:42)
[2023-06-20 19:54] VITALS: BP 134/83; PULSE 63; RESP 18; TEMP 36.5; O2SAT 99
== END 2023-06-20 19:56 | disposition home or self-care (01) ==
PROVIDERS: Registered Nurse Emergency; Emergency Provider Internal Medicine; PCP Internal Medicine
DX: R07.9 Chest pain, unspecified (principal); R10.9 Unspecified abdominal pain; Z11.52 Encounter for screening for COVID-19; Z20.828 Contact with and (suspected) exposure to other viral communicable diseases; Z79.899 Other long term (current) drug therapy
CPT/HCPCS: 0241U; 71046; 76705; 80053; 84484; 85025; 85610; 93005; 99284; 99285

== ENCOUNTER → 2023-06-20 15:08 | Outpatient (BNV) | payer MEDICAID, SELFPAY | PROVIDERS: Emergency Provider Internal Medicine; PCP Internal Medicine; Visit Provider Internal Medicine Cardiovascular Disease | DX: R07.9 Chest pain, unspecified (principal) | CPT/HCPCS: 93010 ==

== ENCOUNTER 2023-06-30 13:21 | Emergency (ER) | payer MEDICAID, SELFPAY ==
[2023-06-30 14:20] VITALS: BP 148/88; PULSE 86; RESP 18; TEMP 36.5; O2SAT 100; BMI 25.1
--- NOTE | 2023-06-30 14:24 | ECG_ITS ---
Test Reason : CP Blood Pressure : / mmHG Vent. Rate : 084 BPM Atrial Rate : 084 BPM P-R Int : 150 ms QRS Dur : 086 ms QT Int : 394 ms P-R-T Axes : 018 001 027 degrees QTc Int : 465 ms Normal sinus rhythm Normal ECG When compared with ECG of 20-JUN-2023 15:10, No significant change was found Referred By: Marbin Villa Electronically Signed By:Scottie Figueroa
--- NOTE | 2023-06-30 14:26 | ED_ITS ---
HPI - General Adult General Chief complaint: Abdominal Pain Stated complaint: LOWER ABD PAIN History of Present Illness HPI narrative: Left without completion of treatment Related Data Home Medications Medication Instructions Recorded Confirmed hydroxyzine HCl 50 mg tablet 50 mg PO QID PRN anxiety 03/03/22 05/10/23 amitriptyline 100 mg tablet 125 mg PO BEDTIME 07/11/22 05/09/23 atenolol 25 mg tablet 25 mg PO DAILY 07/11/22 05/09/23 cholecalciferol (vitamin D3) 25 25 mcg PO DAILY 07/11/22 05/09/23 mcg (1,000 unit) tablet (Vitamin D3) clonidine HCl 0.2 mg tablet 0.2 mg PO TID 07/11/22 05/10/23 metformin 500 mg tablet,extended 500 mg PO DAILY 07/11/22 05/10/23 release 24 hr albuterol sulfate 90 mcg/actuation 2 puff inhalation Q4-6H PRN Dyspnea 05/09/23 05/09/23 aerosol inhaler (Ventolin HFA) zolpidem 12.5 mg tablet,extended 12.5 mg PO BEDTIME PRN insomnia 05/09/23 05/09/23 release,multiphase benztropine 0.5 mg tablet 0.5 mg PO BID 05/10/23 05/10/23 diphenhydramine HCl 25 mg tablet 50 mg PO BEDTIME 05/10/23 05/10/23 melatonin 5 mg tablet 10 mg PO BEDTIME 05/10/23 05/10/23 mirtazapine 45 mg tablet 45 mg PO BEDTIME 05/10/23 05/10/23 Previous Rx's Medication Instructions Recorded acetaminophen 500 mg tablet 1,000 mg (2 x 500 mg) PO QID PRN 03/23/23 pain #30 tabs acetaminophen 325 mg capsule 325 mg PO QID PRN pain 7 days #28 06/07/23 (Tylenol) caps omeprazole 20 mg capsule,delayed 20 mg PO DAILY 90 days #90 caps 06/18/23 release polyethylene glycol 3350 17 17 g PO BID PRN Constipation 90 06/18/23 gram/dose oral powder (ClearLax) days #510 grams sennosides 8.6 mg tablet (senna) 8.6 mg PO BEDTIME PRN Constipation 06/18/23 90 days #90 tabs ondansetron 4 mg disintegrating 4 mg PO Q6-8H PRN nausea and 06/20/23 tablet vomiting #10 tabs Allergies Allergy/AdvReac Type Severity Reaction Status Date / Time trazodone [TRAZODONE] Allergy Severe FACIAL Verified 07/01/23 08:20 SWELLING, swelling cat dander [CATS] Allergy Intermediate FACIAL Verified 07/01/23 08:20 ITCHING doxepin [DOXEPIN] Allergy Intermediate WEIGHT Verified 07/01/23 08:20 GAIN/LEG SWELLING Iodinated Contrast Media Allergy Intermediate ITCHING Verified 07/01/23 08:20 [IV DYE, IODINE CONTAINING CONTRAST ] nitroglycerin [NITROGLYCERIN] Allergy Unknown UNKNOWN Verified 07/01/23 08:20 tramadol [TRAMADOL] Allergy Unknown UNKNOWN, Verified 07/01/23 08:20 dry mouth ibuprofen [From MOTRIN] AdvReac Intermediate GI UPSET Verified 07/01/23 08:20 quetiapine [From SEROQUEL] AdvReac Intermediate FACIAL Verified 07/01/23 08:20 SWELLING aspirin [ASPIRIN] AdvReac Mild Stomach Verified 07/01/23 08:20 Upset Ibuprofen Allergy Unknown stomach Uncoded 06/20/23 15:42 ache IV contrast Allergy Unknown Unknown Uncoded 06/20/23 15:42 Motrin Allergy Unknown stomach Uncoded 06/20/23 15:42 pain PMFSH Past Medical History 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 GERD (gastroesophageal reflux disease) Anxiety Surgical History History of colonoscopy History of cystoscopy H/O umbilical hernia repair Family History Family History Father HTN (hypertension) Diabetes Mother HTN (hypertension) Stroke Alzheimer disease Heart disease Social History Social History Household Members: None Housing: Apartment Do you presently have visiting nurse or other home services: Yes Alcohol intake: never Comment: 1:1 sitter Patient Tobacco Use Status: Current everyday Tobacco user Tobacco use type: Cigarette Cigarette Packs Per Day: 1 Cigarettes Per Day: 20.0 Years Smoked: 9 e-Cigarette/Vaping Use: Never Used Second Hand Smoke Exposure: Yes Substance Use Type: Heroin and Opiates Advance Directives: Yes Advance Directives on File: Yes Advance Directives Date on File: 02/14/20 service: No Current occupational status: unemployed and disabled Sexual orientation: Straight/Heterosexual Physical Exam ED Vital Signs: Vital Signs - 24 hr 06/30/23 14:20 Temperature 97.7 F Pulse Rate 86 Respiratory Rate 18 Blood Pressure 148/88 H Pulse Oximetry 100 Oxygen Delivery Method Room Air BMI result Body Mass Index 25.1 Course Course Course Narrative: RME: 53-year-old male presents ED for chronic left-sided chest pain and chronic right-sided abdominal pain. Patient denies any new trauma shortness of breath. Patient well-appearing. Labs EKG ordered. Medical Decision Making Lab Data 06/30/23 14:38 06/30/23 14:38 Labs: Lab Results 06/30/23 Range/Units 14:38 WBC 7.0 (4.8-10.8) X10*3/uL RBC 3.55 L (4.60-5.80) X10*6/uL Hgb 10.5 L (14.0-18.0) g/dl Hct 30.8 L (42.0-52.0) % MCV 86.8 (80.0-98.0) fL MCH 29.6 (27.0-33.0) pg MCHC 34.1 (31.0-36.0) g/dl RDW 14.3 (11.0-16.0) % Plt Count 198 D (160-400) X10*3/uL MPV 9.0 L (9.4-12.4) fL Immature Gran % (Auto) 0.3 (0.0-0.4) % Neut % (Auto) 64.8 (45-73) % Lymph % (Auto) 22.7 (20-40) % [place] % (Auto) 8.5 (2-11) % Eos % (Auto) 3.3 (0-4) % Baso % (Auto) 0.4 (0-2) % Lymph # (Auto) 1.6 (1.2-4.9) X10*3/uL [place] # (Auto) 0.6 (0.1-1.2) X10*3/uL Eos # (Auto) 0.2 (0.0-0.4) X10*3/uL Baso # (Auto) 0.0 (0.0-0.2) X10*3/uL Abs Immat Gran (auto) 0.02 (0.00-0.03) X10*3/uL Absolute Neuts (auto) 4.5 (2.0-8.3) x10*3/uL Absolute Nucleated RBC 0.000 (0.0-0.012) X10*3/uL Nucleated RBC % (auto) 0.0 (0.0-0.2) /100WBC PT 13.6 H (11.1-13.3) SEC INR 1.1 (0.9-1.1) APTT 31.3 (26.0-36.8) SEC Sodium 132 L (135-145) mmol/L Potassium 3.1 L D (3.3-5.1) mmol/L Chloride 92 L (96-108) mmol/L Carbon Dioxide 27 (22-29) mmol/L Anion Gap 16 (12-20) BUN 4 L (9-16) mg/dL Creatinine 0.78 (0.5-1.4) mg/dL Estim Creat Clear Calc 93.0 Estimated GFR > 60 Random Glucose 77 (60-115) mg/dL Calcium 8.9 D (8.4-10.2) mg/dL Total Bilirubin 0.4 (0.0-1.0) mg/dL AST 75 H (5-37) U/L ALT 24 (0-40) U/L Alkaline Phosphatase 65 (39-117) U/L Troponin I High Sens < 2.7 (<3.5-35.0) ng/L Total Protein 7.3 (6.5-8.0) g/dL Albumin 3.9 (3.5-5.0) g/dL Discharge Plan Discharge Clinical Impression: Abdominal pain, Chest pain Patient Disposition: Left W/O Completing Treatment Prescriptions: No Action sennosides [senna] 8.6 mg tablet 8.6 mg PO BEDTIME PRN (Reason: Constipation) 90 Days Qty: 90 1RF polyethylene glycol 3350 [ClearLax] 17 gram/dose powder 17 g PO BID PRN (Reason: Constipation) 90 Days Qty: 510 1RF omeprazole 20 mg capsule,delayed release(DR/EC) 20 mg PO DAILY 90 Days Qty: 90 1RF albuterol sulfate [Ventolin HFA] 90 mcg/actuation HFA aerosol inhaler 2 puff INHALATION Q4-6H PRN (Reason: Dyspnea) zolpidem 12.5 mg tablet,ext release multiphase 12.5 mg PO BEDTIME PRN (Reason: insomnia ) benztropine 0.5 mg tablet 0.5 mg PO BID diphenhydramine HCl 25 mg tablet 50 mg PO BEDTIME mirtazapine 45 mg tablet 45 mg PO BEDTIME melatonin 5 mg tablet 10 mg PO BEDTIME acetaminophen [Tylenol] 325 mg capsule 325 mg PO QID PRN (Reason: pain) 7 Days Qty: 28 0RF ondansetron 4 mg tablet,disintegrating 4 mg PO Q6-8H PRN (Reason: nausea and vomiting) Qty: 10 0RF metformin 500 mg Tablet Extended Release 24 Hr 500 mg PO DAILY atenolol 25 mg Tablet 25 mg PO DAILY amitriptyline 100 mg Tablet 125 mg PO BEDTIME cholecalciferol (vitamin D3) [Vitamin D3] 25 mcg (1,000 unit) Tablet 25 mcg PO DAILY clonidine HCl 0.2 mg Tablet 0.2 mg PO TID acetaminophen 500 mg tablet 1,000 mg PO QID PRN (Reason: pain) Qty: 30 0RF hydroxyzine HCl 50 mg tablet 50 mg PO QID PRN (Reason: anxiety) Discharge Date/Time: 06/30/23 18:00
[2023-06-30 14:44] LABS: MANUAL DIFF FLAG NO
[2023-06-30 14:50] LABS: Basophils Percent Auto 0.4 % (0-2); Eosinophils Absolute Auto 0.2 X10*3/uL (0.0-0.4); Eosinophils Percent Auto 3.3 % (0-4); Hematocrit 30.8 % (42.0-52.0); Hemoglobin 10.5 g/dl (14.0-18.0); Imm Gran Abs Auto 0.02 X10*3/uL (0.00-0.03); Imm Gran Pct Auto 0.3 % (0.0-0.4); Lymphocytes Absolute Auto 1.6 X10*3/uL (1.2-4.9); Lymphocytes Percent Auto 22.7 % (20-40); Mean Corpuscular HGB Conc 34.1 g/dl (31.0-36.0); Mean Corpuscular Hemoglobin 29.6 pg (27.0-33.0); Mean Corpuscular Volume 86.8 fL (80.0-98.0); Monocytes Absolute Auto 0.6 X10*3/uL (0.1-1.2); Monocytes Percent Auto 8.5 % (2-11); Neutrophils Absolute Auto 4.5 x10*3/uL (2.0-8.3); Neutrophils Percent Auto 64.8 % (45-73); Platelet Count 198 X10*3/uL (160-400); Red Blood Count 3.55 X10*6/uL (4.60-5.80); Red Cell Distribution Width 14.3 % (11.0-16.0)
[2023-06-30 14:51] LABS: INTERNATIONAL NORM RATIO 1.1 (0.9-1.1); Prothrombin Time 13.6 SEC (11.1-13.3)
[2023-06-30 14:53] LABS: Partial Thromboplastin Time 31.3 SEC (26.0-36.8)
[2023-06-30 15:08] LABS: Alanine Aminotransferase 24 U/L (0-40); Albumin Level 3.9 g/dL (3.5-5.0); Alkaline Phosphatase 65 U/L (39-117); Anion Gap 16 (12-20); Aspartate Amino Transferase 75 U/L (5-37); Bilirubin Total 0.4 mg/dL (0.0-1.0); Blood Urea Nitrogen 4 mg/dL (9-16); Calcium 8.9 mg/dL (8.4-10.2); Carbon Dioxide 27 mmol/L (22-29); Chloride 92 mmol/L (96-108); Estimated Glomerular Filt Rate > 60; Glucose Random 77 mg/dL (60-115); Potassium 3.1 mmol/L (3.3-5.1); Sodium 132 mmol/L (135-145); Total Protein 7.3 g/dL (6.5-8.0)
[2023-06-30 15:13] LABS: Troponin-I High Sensitivity < 2.7 ng/L (<3.5-35.0)
== END 2023-06-30 18:00 | disposition left against medical advice (07) ==
LOC: HO.ED 19:11
PROVIDERS: Physician Assistant; Emergency Provider Emergency Medicine
DX: R10.30 Lower abdominal pain, unspecified (principal); R07.89 Other chest pain; F17.210 Nicotine dependence, cigarettes, uncomplicated; Z79.899 Other long term (current) drug therapy
CPT/HCPCS: 36415; 80053; 84484; 85025; 85610; 85730; 93005; 99283

== ENCOUNTER → 2023-06-30 14:24 | Outpatient (BNV) | payer MEDICAID, SELFPAY | PROVIDERS: Emergency Provider Emergency Medicine; Visit Provider Internal Medicine Cardiovascular Disease | DX: R07.9 Chest pain, unspecified (principal) | CPT/HCPCS: 93010 ==

== ENCOUNTER 2023-07-01 07:49 | Emergency (ER) | payer MEDICAID, SELFPAY ==
--- NOTE | 2023-07-01 | ECG_ITS ---
Test Reason : pain Blood Pressure : / mmHG Vent. Rate : 093 BPM Atrial Rate : 093 BPM P-R Int : 146 ms QRS Dur : 080 ms QT Int : 370 ms P-R-T Axes : 013 -02 011 degrees QTc Int : 460 ms Normal sinus rhythm Minimal voltage criteria for LVH, may be normal variant ( R in aVL ) Borderline ECG When compared with ECG of 30-JUN-2023 14:32, No significant change was found Referred By: Generic ED Physician Electronically Signed By:Scottie Figueroa
--- NOTE | ~2023-07-01 | CT_ITS ---
EXAMINATION: CT ABDOMEN AND PELVIS WITHOUT CONTRAST CLINICAL INFORMATION: Diffuse abdominal pain and tenderness COMPARISON: CT scan of abdomen and pelvis on 06/07/2023 TECHNIQUE: Multidetector volumetric imaging was performed from the superior aspect of the liver through the pubic symphysis. Sagittal and coronal reformatted images were obtained on the technologist's workstation. This CT examination was performed using dose optimization techniques as appropriate, variously including the following: *Automated exposure control *Adjustment of mA and/or kV according to patient size (this includes techniques or standardized protocols for targeted exams where dose is matched to indication/reason for exam; i.e. extremities or head) *Use of iterative reconstruction technique DLP: 511.51 mGy-cm FINDINGS: CT ABDOMEN LUNG BASES: Bilateral lung bases are clear. LIVER: Liver appears to be grossly normal on noncontrast enhanced images. GALLBLADDER AND BILIARY TREE: Gallbladder appears unremarkable without calcified stones. Common bile duct is not dilated. SPLEEN: The spleen is normal in size without focal lesion on noncontrast enhanced images. PANCREAS: The pancreas appears unremarkable on noncontrast enhanced images. ADRENAL GLANDS: Adrenal glands are normal in size without focal lesion bilaterally. KIDNEYS: The visualized bilateral kidneys are normal in size without stones. A stable exophytic simple cyst measuring 4.7 cm in diameter, mean attenuation of 1.4 Hounsfield units, is seen protruding from lateral mid left renal cortex, for which no follow up imaging is recommended No caliectasis or dilated pelvis is seen. No dilated ureters are found. BOWELS: There is no abnormal dilatation of the large and small bowel loops. RETROPERITONEUM: No abnormally enlarged retroperitoneal lymph nodes, mass or hematoma could be seen. BLOOD VESSELS: Abdominal aorta is normal in size and smooth in outline. ABDOMINAL WALL: A tiny umbilical hernia containing mesenteric fat is seen. PERITONEUM: There is no ascites. There were no abdominal peritoneal inflammatory changes seen. No free peritoneal air was seen. BONES: L3-L4 spinal fusion with intervertebral spacer, posterior fixation with transpedicular screws and vertical bars is seen. No fracture or dislocation. No focal bone lesion diagnostic of metastatic disease could be seen in the lumbar region. CT PELVIS URINARY BLADDER: The visualized urinary bladder is markedly distended with urine. No intraluminal stones are found. No abnormally dilated distal ureters are seen. BOWELS: There is no abnormal dilatation of the large and small bowel loops. Unchanged normal appendix is seen projecting medial and posterior to the cecum. GENITAL ORGANS: Seminal vesicles are unremarkable. Prostate gland is normal. LYMPH NODES: No abnormally enlarged iliac or inguinal lymph nodes are seen. PERITONEUM: Persistent surgical clips around spiculated fibrotic tissue is seen in the space of Retzius between the abdominal wall and urinary bladder. Unchanged 1 cm calcification is seen in the rectovesical space. No inflammatory changes, ascites or free peritoneal air are found in the pelvis. BONES: No fracture or dislocation. No focal bone lesion diagnostic of metastatic disease could be seen in the pelvis. CT/CT abdomen pelvis wo IV con IMPRESSION: 1. Unchanged, No evidence of nephrolithiasis or obstructive uropathy. 2. Stable exophytic simple cyst protruding from lateral mid left renal cortex, for which no follow up imaging is recommended. 3. Persistent surgical clips around spiculated fibrotic tissue in the Space of Retzius between the abdominal wall and urinary bladder. Interval resolution of air in the urinary bladder lumen. 4. Unchanged, status post L3-L4 spinal fusion with intervertebral spacer, posterior fixation with transpedicular screws and vertical bars.
--- NOTE | ~2023-07-01 | XR_ITS ---
EXAMINATION: XR CHEST CLINICAL INFORMATION: Chest pain COMPARISON: Chest radiograph from 06/20/2023 TECHNIQUE: 2 views of the chest were obtained. FINDINGS: No focal consolidation. No pneumothorax. Trachea is midline. Cardiac mediastinal silhouette is not enlarged. No large pleural effusion. Chronic appearing right posterior eighth rib fracture. Soft tissues are unremarkable. XR/XR chest 2V IMPRESSION: No acute cardiopulmonary process.
--- NOTE | ~2023-07-01 | CT_ITS ---
EXAMINATION: CT HEAD WITHOUT CONTRAST CLINICAL INFORMATION: Fall head strike COMPARISON: CT head from 06/16/2023 TECHNIQUE: Contiguous axial imaging was performed from the skull base to vertex without intravenous administration of contrast. This CT examination was performed using dose optimization techniques as appropriate, variously including the following: *Automated exposure control *Adjustment of mA and/or kV according to patient size (this includes techniques or standardized protocols for targeted exams where dose is matched to indication/reason for exam; i.e. extremities or head) *Use of iterative reconstruction technique DLP: 988 mGy-cm FINDINGS: There is no evidence of acute intracranial hemorrhage or territorial infarction. Chronic white matter small vessel ischemic changes. No abnormal mass effect or midline shift is seen. Queen to white matter differentiation is well preserved. No extra-axial fluid collections are identified. The ventricles are normal in size. There is no abnormal attenuation within the brain parenchyma. The osseous structures and soft tissues are normal. Mucoperiosteal thickening of the bilateral maxillary sinuses. The mastoid air cells and visualized portions of the paranasal sinuses are well aerated. CT/CT cervical spine wo IV con IMPRESSION: 1. No acute intracranial pathology. 2. Chronic white matter small vessel ischemic changes. EXAMINATION: Noncontrast CT scan of the cervical spine. INDICATION: Fall head strike COMPARISON: CT cervical spine from 05/09/2023 TECHNIQUE: Helical, multidetector axial images were obtained from the occiput to the upper thorax. Coronal and sagittal reformats of the cervical spine were provided for interpretation. DLP: 988 mGy-cm FINDINGS: No acute fractures or dislocations of the cervical spine are seen. Multilevel degenerative changes. Anatomic alignment and positioning of the vertebral bodies and posterior elements is noted. The atlantoaxial joint and craniovertebral articulations are normal without evidence of subluxation. There is no prevertebral soft tissue swelling. The thyroid gland and visualized portions of the lung apices and mediastinum are unremarkable. IMPRESSION: 1. No acute visible fracture or dislocation. 2. Multilevel degenerative changes.
[2023-07-01 08:16] VITALS: BP 138/88; BP 162/98; PULSE 110; PULSE 92; RESP 18; TEMP 37.1; O2SAT 97; O2SAT 98; BMI 25.5
--- NOTE | 2023-07-01 08:36 | ED_ITS ---
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 Chest pain has been constant in character and localized to left chest. He states he has never had this pain before. Endorses associated nausea without vomiting and epigastric abdominal pain. He additionally endorses fall that occurred yesterday, stating that he attempting to stand up from his couch around 1600 when he suddenly felt dizzy and fell onto the ground, striking the right side of his body/head. Denies LOC. No thinners. Admits he was on the ground for approximately 20 minutes before his neighbors came over and helped him up. Denies preceding headache, vision changes, SOB. Denies illicit drug use. Denies EtOH consumption. Denies etoh consumption or illicit substance use. Denies constipation, diarrhea, flank pain, dysuria, hematuria. Patient is a poor historian. inventory specialist utilized throughout visit to communicate with patient. Related Data Home Medications Medication Instructions Recorded Confirmed hydroxyzine HCl 50 mg tablet 50 mg PO QID PRN anxiety 03/03/22 05/10/23 amitriptyline 100 mg tablet 125 mg PO BEDTIME 07/11/22 05/09/23 atenolol 25 mg tablet 25 mg PO DAILY 07/11/22 05/09/23 cholecalciferol (vitamin D3) 25 25 mcg PO DAILY 07/11/22 05/09/23 mcg (1,000 unit) tablet (Vitamin D3) clonidine HCl 0.2 mg tablet 0.2 mg PO TID 07/11/22 05/10/23 metformin 500 mg tablet,extended 500 mg PO DAILY 07/11/22 05/10/23 release 24 hr albuterol sulfate 90 mcg/actuation 2 puff inhalation Q4-6H PRN Dyspnea 05/09/23 05/09/23 aerosol inhaler (Ventolin HFA) zolpidem 12.5 mg tablet,extended 12.5 mg PO BEDTIME PRN insomnia 05/09/23 05/09/23 release,multiphase benztropine 0.5 mg tablet 0.5 mg PO BID 05/10/23 05/10/23 diphenhydramine HCl 25 mg tablet 50 mg PO BEDTIME 05/10/23 05/10/23 melatonin 5 mg tablet 10 mg PO BEDTIME 05/10/23 05/10/23 mirtazapine 45 mg tablet 45 mg PO BEDTIME 05/10/23 05/10/23 Previous Rx's Medication Instructions Recorded acetaminophen 500 mg tablet 1,000 mg (2 x 500 mg) PO QID PRN 03/23/23 pain #30 tabs acetaminophen 325 mg capsule 325 mg PO QID PRN pain 7 days #28 06/07/23 (Tylenol) caps omeprazole 20 mg capsule,delayed 20 mg PO DAILY 90 days #90 caps 06/18/23 release polyethylene glycol 3350 17 17 g PO BID PRN Constipation 90 06/18/23 gram/dose oral powder (ClearLax) days #510 grams sennosides 8.6 mg tablet (senna) 8.6 mg PO BEDTIME PRN Constipation 06/18/23 90 days #90 tabs ondansetron 4 mg disintegrating 4 mg PO Q6-8H PRN nausea and 06/20/23 tablet vomiting #10 tabs Allergies Allergy/AdvReac Type Severity Reaction Status Date / Time trazodone [TRAZODONE] Allergy Severe FACIAL Verified 07/01/23 08:20 SWELLING, swelling cat dander [CATS] Allergy Intermediate FACIAL Verified 07/01/23 08:20 ITCHING doxepin [DOXEPIN] Allergy Intermediate WEIGHT Verified 07/01/23 08:20 GAIN/LEG SWELLING Iodinated Contrast Media Allergy Intermediate ITCHING Verified 07/01/23 08:20 [IV DYE, IODINE CONTAINING CONTRAST ] nitroglycerin [NITROGLYCERIN] Allergy Unknown UNKNOWN Verified 07/01/23 08:20 tramadol [TRAMADOL] Allergy Unknown UNKNOWN, Verified 07/01/23 08:20 dry mouth ibuprofen [From MOTRIN] AdvReac Intermediate GI UPSET Verified 07/01/23 08:20 quetiapine [From SEROQUEL] AdvReac Intermediate FACIAL Verified 07/01/23 08:20 SWELLING aspirin [ASPIRIN] AdvReac Mild Stomach Verified 07/01/23 08:20 Upset Ibuprofen Allergy Unknown stomach Uncoded 06/20/23 15:42 ache IV contrast Allergy Unknown Unknown Uncoded 06/20/23 15:42 Motrin Allergy Unknown stomach Uncoded 06/20/23 15:42 pain Review of Systems 2 Review of Systems: Constitutional: No fever, chills, fatigue, night sweats, weight changes ENT/Mouth: No ear pain, hearing loss, nasal congestion, sinus pain, rhinorrhea, sore throat Eyes: No eye pain, swelling, redness, vision changes, discharge Cardio: No palpitations, PATHAK, orthopnea, peripheral edema, + chest pain Pulm: No SOB, cough, sputum, wheezing, dyspnea, hemoptysis GI: No nvomiting, hematemesis, diarrhea, constipation, hematochezia, melena, + abdominal pain, + nausea : No irregular bleeding, dysuria, frequency, urgency, hesitancy, hematuria, flank pain, urinary flow changes, urinary incontinence or retention MSK: No back pain, neck pain, joint pain, myalgias Skin: No lesions, rashes Neuro: No weakness, numbness, paresthesias, LOC, dizziness, +headache Psych: No anxiety/panic, depression, SI/HI, AH/VH All other systems reviewed and are negative. [facility] Past Medical History Attestation statement: The following information was validated with the patient. Source: old records reviewed and nursing notes reviewed 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 GERD (gastroesophageal reflux disease) Anxiety Surgical History History of colonoscopy History of cystoscopy H/O umbilical hernia repair Family History Family History Father HTN (hypertension) Diabetes Mother HTN (hypertension) Stroke Alzheimer disease Heart disease Social History Social History Household Members: None Housing: Apartment Do you presently have visiting nurse or other home services: Yes Alcohol intake: never Comment: 1:1 sitter Patient Tobacco Use Status: Current everyday Tobacco user Tobacco use type: Cigarette Cigarette Packs Per Day: 1 Cigarettes Per Day: 20.0 Years Smoked: 9 e-Cigarette/Vaping Use: Never Used Second Hand Smoke Exposure: Yes Substance Use Type: Heroin and Opiates Advance Directives: Yes Advance Directives on File: Yes Advance Directives Date on File: 02/14/20 service: No Current occupational status: unemployed and disabled Sexual orientation: Straight/Heterosexual Physical Exam 2 Vital Signs: Vital Signs: Last Vital Signs Temp 97.9 F 07/01/23 16:32 Pulse 82 07/01/23 16:32 Resp 14 07/01/23 16:32 BP 152/87 H 07/01/23 16:32 Pulse Ox 98 07/01/23 16:32 O2 Del Method Room Air 07/01/23 14:57 BMI result Body Mass Index 25.5 Vital signs stable Const: Other: + or historian, stating different chief complaints to different people, changing story often General: cooperative, healthy appearing, comfortable and no acute distress Orientation/consciousness: patient oriented x3 Limitations: no limitations HEENT: Head: Yes normal to inspection, Yes No palpable skull fracture present, Yes normocephalic, Yes atraumatic, No Short's sign, No raccoon eyes and No periorbital ecchymosis Ears: hearing grossly normal bilaterally, external ears normal, TM's normal bilaterally, EAC's normal, mastoids normal and no periauricular adenopathy General nose exam: Normal external nose present and Normal septum present Eyes: General: appearance normal, both eyes and all related structures C onjunctivae: conjunctivae normal Sclerae: sclerae normal Pupils: Equal, round and reactive pupils present EOM: EOMs intact bilaterally Neck: Neck: Yes normal visual inspection and Yes full ROM Chest: Other: + reproducible tenderness to palpation o caden the left anterior chest wall without palpable deformity. No tenderness to palpation over the lateral or posterior chest osman. No crepitus. Chest palpation & inspection: normal inspection of the chest Resp: Effort & Inspection: normal respiratory effort and able to speak in complete sentences Auscultation: clear to auscultation bilaterally Cardio: Rate: regular rate Rhythm: regular rhythm GI: Other: + soft, diffusely tender to palpation, n ondistended. No rebound tenderness or guarding. Healed incision scars noted to lower abdomen s/p hernia repair. Inspection: Yes normal to inspection : General: Yes no CVA tenderness Back/Spine/Pelvis: Other: No midline spinous tenderness or step off deformity. No paraspinal muscle tenderness. Back: no CVA tenderness Skin: General skin exam: no rashes or lesions noted Neuro: Other: Strength 5/5 intact throughout.?No saddle anesthesia.?Sensation intact to light touch.?Neurovascular intact distally.? General: patient oriented x3 and gait normal Cranial nerves: Yes Equal, round and reactive pupils present Motor exam (neuro): 5/5 motor strength present throughout Coordination: [id number] test normal, [id number] test normal and Normal rapid alternating movements of the distal upper extremity present (Neuro) Pupils: Normal pupillary reactivity/response: bilateral Course Course Course Narrative: 0859-- on chart review, patient was triaged at [facility] yesterday for chronic left sided chest pain and right sided abdominal pain however LWCT after having labs drawn and EKG done. Labs obtained yesterday do not exhibit leukocytosis or left shift. H&H 10.5/30.8. He was slightly hyponatremic at 132 and hypokalemic at 3.1. No other acute electrolyte abnormalities requiring intervention. Magnesium levels were not obtained at that time. Troponin obtained yesterday was undetectable. Transaminitis likely secondary to ETOH abuse. > I have also reviewed RUQ abdominal ultrasound obtained on 06/20/2023 (11 days ago) which demonstrates normal gallbladder and CBD and no evidence of hydronephrosis or renal calculi. Pancreas wnl. 0914-- CBC without leukocytosis or left shift. Anemia improved since yesterday. H&H 11.3/33.3. He denies any rectal bleeding, melena, hematochezia, hematemesis. No open skin lesions or areas of bleeding. No areas of ecchymosis noted to skin. No concern for acute blood loss. Chemistry reveals normalized potassium at 3.4 however slightly low magnesium at 1.5. Normal renal function. Transaminitis. Initial troponin undetectable > will repeat for delta. Lipase WNL > low suspicion for pancreatitis. EKG shows normal sinus rhythm at a rate of 93 beats per minute, QT 370 no acute ischemic changes or ST elevations. 0956-- patient noted to be in slight rhabdomyolysis with a CPK of 1744 -- 2 L IVF running. He has tested negative for flu, COVID, RSV. Pending UA, UDS and imaging results. 1309-- repeat CPK slightly improved at 1416 > another L of IV fluids ordered. Delta troponin flat > unlikely ACS. CXR does not demonstrate pneumonia or effusion. UA without infection. UDS positive for opioids, likely seondary to administration of morphine in ED. > Still awaiting ct abd/pelvis results +/- admission for rhabdo. 1420-- CT abd/pelvis is unchanged from priors. There is a stable exophytic simple cyst protruding from lateral mid left renal cortex - no follow-up imaging currently recommended. There are persistent surgical clips around spiculated fibrotic tissue in the space of Retzius between the abdominal wall and urinary bladder however there is resolution of air in the urinary bladder lumen previously identified. There is also unchanged status post L3-L4 spinal fusion with intervertebral spacer. > there is no acute intra-abdominal pathology to explain patient's epigastric pain. Discussed all work up results with patient. Given improvement in CPK with fluids, I do not have concern for severe rhabdo at this time and do not feel as though patient requires admission. Discussed this with my attending physician, Dr. Long who is in agreement. Patient has remained stable throughout ED visit today. Discussed worrisome signs and symptoms and when to return to the ED. All questions answered at this time. Patient is agreeable with disposition and stable for discharge. Medications Administered Discontinued Medications Generic Name Dose Route Start Last Admin Trade Name Freq PRN Reason Stop Dose Admin Sodium Chloride 1,000 mls @ 999 mls/hr 07/01/23 10:00 07/01/23 11:51 Ns IV 07/01/23 11:00 Infused .Q1H1M JAMES Infusion Sodium Chloride 1,000 mls @ 999 mls/hr 07/01/23 12:15 07/01/23 13:54 Ns IV 07/01/23 13:15 Infused .Q1H1M JAMES Infusion Sodium Chloride 1,000 mls @ 999 mls/hr 07/01/23 13:15 07/01/23 16:15 Ns IV 07/01/23 14:15 Infused .Q1H1M JAMES Infusion Morphine Sulfate 15 mg 07/01/23 09:08 07/01/23 09:35 Morphine Sulfate Immed Release 15 Mg Tablet PO 07/01/23 09:09 15 mg ONCE ONE Administration Medical Decision Making Medical Decision Making [facility] Narrative: 53 year old Telugu speaking male with pmhx significant for GERD, depression, bipolar disorder, opioid use disorder, and alcohol use disorder presents to the ED via EMS today from home for evaluation of chest pain x2 days. Vital signs WNL. He is afebrile. He is nontoxic-appearing and in no acute distress. PERRLA. Normocephalic, atraumatic. No palpable skull fracture or scalp tenderness. EOMs intact without entrapment. Full ROM to all extremities. Ambulating with steady gait. Cerebellum intact. Exam nonfocal. Differential diagnosis includes viral syndrome, arrhythmia, ACS, pneumonia, urinary tract infection, polysubstance use, ETOH abuse, opioid abuse, ICH, CVA, contusion, concussion, headache, GCA, orthostatic hypotension, cholecystitis, pancreatitis. Low suspicion for dissection, pleural effusion, appendicitis, ischemic bowel, SBO, acute abdomen. Labs, trip, EKG, chest x-ray, UA, UDS, and imaging ordered. Differential Diagnosis Differential Diagnoses: The differential diagnosis associated with the presentation includes As above Admission/Observation Not indicated Lab Data [facility] Lab Attestation statement: I reviewed the patient's lab results. As above 07/01/23 08:33 07/01/23 08:33 Labs: Lab Results 07/01/23 07/01/23 07/01/23 Range/Units 08:33 12:34 14:48 WBC 7.0 (4.8-10.8) X10*3/uL RBC 3.84 L (4.60-5.80) X10*6/uL Hgb 11.3 L (14.0-18.0) g/dl Hct 33.3 L (42.0-52.0) % MCV 86.7 (80.0-98.0) fL MCH 29.4 (27.0-33.0) pg MCHC 33.9 (31.0-36.0) g/dl RDW 14.5 (11.0-16.0) % Plt Count 224 (160-400) X10*3/uL MPV 9.1 L (9.4-12.4) fL Immature Gran % (Auto) 0.3 (0.0-0.4) % Neut % (Auto) 76.9 H (45-73) % Lymph % (Auto) 13.4 L (20-40) % [place] % (Auto) 7.0 (2-11) % Eos % (Auto) 2.0 (0-4) % Baso % (Auto) 0.4 (0-2) % Lymph # (Auto) 0.9 L (1.2-4.9) X10*3/uL [place] # (Auto) 0.5 (0.1-1.2) X10*3/uL Eos # (Auto) 0.1 (0.0-0.4) X10*3/uL Baso # (Auto) 0.0 (0.0-0.2) X10*3/uL Abs Immat Gran (auto) 0.02 (0.00-0.03) X10*3/uL Absolute Neuts (auto) 5.4 (2.0-8.3) x10*3/uL Absolute Nucleated RBC 0.000 (0.0-0.012) X10*3/uL Nucleated RBC % (auto) 0.0 (0.0-0.2) /100WBC Sodium 138 (135-145) mmol/L Potassium 3.4 (3.3-5.1) mmol/L Chloride 101 (96-108) mmol/L Carbon Dioxide 25 (22-29) mmol/L Anion Gap 15 (12-20) BUN 3 L (9-16) mg/dL Creatinine 0.72 (0.5-1.4) mg/dL Estim Creat Clear Calc 100.8 Estimated GFR > 60 Random Glucose 109 (60-115) mg/dL Calcium 9.3 (8.4-10.2) mg/dL Magnesium 1.5 L (1.6-2.6) mg/dL Total Bilirubin 0.3 (0.0-1.0) mg/dL AST 59 H (5-37) U/L ALT 23 (0-40) U/L Alkaline Phosphatase 66 (39-117) U/L Total Creatine Kinase 1744 H 1416 H (38-174) U/L Troponin I High Sens < 2.7 < 2.7 (<3.5-35.0) ng/L Total Protein 7.2 (6.5-8.0) g/dL Albumin 3.8 (3.5-5.0) g/dL Lipase 7 L (8-78) U/L Urine Color Yellow Urine Appearance Clear Urine pH 6.5 (5.0-9.0) Ur Specific [place] <= 1.005 (1.005-1.025) Urine Protein Negative (Neg-Trace) mg/dL Urine Glucose (UA) Negative (Negative) mg/dL Urine Ketones Trace (Negative) mg/dL Urine Blood Negative (Negative) Urine Nitrite Negative (Negative) Ur Leukocyte Esterase Negative (Negative) Urine Opiates Screen POSITIVE H (Not Detect) Urine Fentanyl Screen Not Detected (Not Detect) Ur Barbiturates Screen Not Detected (Not Detect) Ur Phencyclidine Scrn Not Detected (Not Detect) Ur Amphetamines Screen Not Detected (Not Detect) U Benzodiazepines Scrn Not Detected (Not Detect) Urine Cocaine Screen Not Detected (Not Detect) U Marijuana (THC) Screen Not Detected (Not Detect) Ethyl Alcohol < 10 mg/dL Influenza Type A (PCR) NEGATIVE (Negative) Influenza Type B (PCR) NEGATIVE (Negative) RSV RNA Qual (PCR) NEGATIVE (Negative) SARS-CoV-2 RNA (RT-PCR) NEGATIVE (Negative) Independent Interpretation I performed an independent interpretation of an: EKG and Plain X-Ray Interpretation: EKG showing normal sinus rhythm with a rate of 93 beats per minute, QT 370, QTC 460, no acute ischemic changes or ST elevations. When compared with EKG obtained yesterday, 06/30/2023, slight LVH present. I personally reviewed chest x-ray and agree with radiologist's interpretation Radiology Impression Discussion of test interpretation with radiology: I have reviewed the radiologist's reading. Radiologist Impression: EXAMINATION: CT HEAD WITHOUT CONTRAST CLINICAL INFORMATION: Fall head strike COMPARISON: CT head from 06/16/2023 TECHNIQUE: Contiguous axial imaging was performed from the skull base to vertex without intravenous administration of contrast. This CT examination was performed using dose optimization techniques as appropriate, variously including the following: *Automated exposure control *Adjustment of mA and/or kV according to patient size (this includes techniques or standardized protocols for targeted exams where dose is matched to indication/reason for exam; i.e. extremities or head) *Use of iterative reconstruction technique DLP: 988 mGy-cm FINDINGS: There is no evidence of acute intracranial hemorrhage or territorial infarction. Chronic white matter small vessel ischemic changes. No abnormal mass effect or midline shift is seen. Queen to white matter differentiation is well preserved. No extra-axial fluid collections are identified. The ventricles are normal in size. There is no abnormal attenuation within the brain parenchyma. The osseous structures and soft tissues are normal. Mucoperiosteal thickening of the bilateral maxillary sinuses. The mastoid air cells and visualized portions of the paranasal sinuses are well aerated. CT/CT head/brain wo IV con IMPRESSION: 1. No acute intracranial pathology. 2. Chronic white matter small vessel ischemic changes. EXAMINATION: Noncontrast CT scan of the cervical spine. INDICATION: Fall head strike COMPARISON: CT cervical spine from 05/09/2023 TECHNIQUE: Helical, multidetector axial images were obtained from the occiput to the upper thorax. Coronal and sagittal reformats of the cervical spine were provided for interpretation. DLP: 988 mGy-cm FINDINGS: No acute fractures or dislocations of the cervical spine are seen. Multilevel degenerative changes. Anatomic alignment and positioning of the vertebral bodies and posterior elements is noted. The atlantoaxial joint and craniovertebral articulations are normal without evidence of subluxation. There is no prevertebral soft tissue swelling. The thyroid gland and visualized portions of the lung apices and mediastinum are unremarkable. IMPRESSION: 1. No acute visible fracture or dislocation. 2. Multilevel degenerative changes. EXAMINATION: XR CHEST CLINICAL INFORMATION: Chest pain COMPARISON: Chest radiograph from 06/20/2023 TECHNIQUE: 2 views of the chest were obtained. FINDINGS: No focal consolidation. No pneumothorax. Trachea is midline. Cardiac mediastinal silhouette is not enlarged. No large pleural effusion. Chronic appearing right posterior eighth rib fracture. Soft tissues are unremarkable. XR/XR chest 2V IMPRESSION: No acute cardiopulmonary process. EXAMINATION: CT ABDOMEN AND PELVIS WITHOUT CONTRAST CLINICAL INFORMATION: Diffuse abdominal pain and tenderness COMPARISON: CT scan of abdomen and pelvis on 06/07/2023 TECHNIQUE: Multidetector volumetric imaging was performed from the superior aspect of the liver through the pubic symphysis. Sagittal and coronal reformatted images were obtained on the technologist's workstation. This CT examination was performed using dose optimization techniques as appropriate, variously including the following: *Automated exposure control *Adjustment of mA and/or kV according to patient size (this includes techniques or standardized protocols for targeted exams where dose is matched to indication/reason for exam; i.e. extremities or head) *Use of iterative reconstruction technique DLP: 511.51 mGy-cm FINDINGS: CT ABDOMEN LUNG BASES: Bilateral lung bases are clear. LIVER: Liver appears to be grossly normal on noncontrast enhanced images. GALLBLADDER AND BILIARY TREE: Gallbladder appears unremarkable without calcified stones. Common bile duct is not dilated. SPLEEN: The spleen is normal in size without focal lesion on noncontrast enhanced images. PANCREAS: The pancreas appears unremarkable on noncontrast enhanced images. ADRENAL GLANDS: Adrenal glands are normal in size without focal lesion bilaterally. KIDNEYS: The visualized bilateral kidneys are normal in size without stones. A stable exophytic simple cyst measuring 4.7 cm in diameter, mean attenuation of 1.4 Hounsfield units, is seen protruding from lateral mid left renal cortex, for which no follow up imaging is recommended No caliectasis or dilated pelvis is seen. No dilated ureters are found. BOWELS: There is no abnormal dilatation of the large and small bowel loops. RETROPERITONEUM: No abnormally enlarged retroperitoneal lymph nodes, mass or hematoma could be seen. BLOOD VESSELS: Abdominal aorta is normal in size and smooth in outline. ABDOMINAL WALL: A tiny umbilical hernia containing mesenteric fat is seen. PERITONEUM: There is no ascites. There were no abdominal peritoneal inflammatory changes seen. No free peritoneal air was seen. BONES: L3-L4 spinal fusion with intervertebral spacer, posterior fixation with transpedicular screws and vertical bars is seen. No fracture or dislocation. No focal bone lesion diagnostic of metastatic disease could be seen in the lumbar region. CT PELVIS URINARY BLADDER: The visualized urinary bladder is markedly distended with urine. No intraluminal stones are found. No abnormally dilated distal ureters are seen. BOWELS: There is no abnormal dilatation of the large and small bowel loops. Unchanged normal appendix is seen projecting medial and posterior to the cecum. GENITAL ORGANS: Seminal vesicles are unremarkable. Prostate gland is normal. LYMPH NODES: No abnormally enlarged iliac or inguinal lymph nodes are seen. PERITONEUM: Persistent surgical clips around spiculated fibrotic tissue is seen in the space of Retzius between the abdominal wall and urinary bladder. Unchanged 1 cm calcification is seen in the rectovesical space. No inflammatory changes, ascites or free peritoneal air are found in the pelvis. BONES: No fracture or dislocation. No focal bone lesion diagnostic of metastatic disease could be seen in the pelvis. CT/CT abdomen pelvis wo IV con IMPRESSION: 1. Unchanged, No evidence of nephrolithiasis or obstructive uropathy. 2. Stable exophytic simple cyst protruding from lateral mid left renal cortex, for which no follow up imaging is recommended. 3. Persistent surgical clips around spiculated fibrotic tissue in the Space of Retzius between the abdominal wall and urinary bladder. Interval resolution of air in the urinary bladder lumen. 4. Unchanged, status post L3-L4 spinal fusion with intervertebral spacer, posterior fixation with transpedicular screws and vertical bars. Independent Historian Clinical information obtained from an independent historian. History obtained from or confirmed by: EMS External Record Review External record reviewed: Inpatient record, Office record, Outpatient record, Prior outpatient labs, Prior outpatient radiology, Primary care record and Outside ED record Prescription Management I considered prescription management with: Pain Medication Chronic Conditions Patient?s care impacted by: Other (etoh use disorder, opioid use disorder) Social Determinants Patient?s care significantly limited by Social Determinants of Health including: Other Social Determinant of Health Critical Care Time Critical Care Time Critical Care Time: Yes Total Critical Care Time: 60 Attestation: Critical care time in the amount of 60 minutes has been provided to the patient in terms of direct patient care, frequent reevaluation, review and interpretation of medical data and results, and management of potentially life- threatening conditions. This is all outside of any medical procedures. Discharge Plan Discharge Clinical Impression: Rhabdomyolysis, Abdominal pain, Chest pain Patient Disposition: Home, Self-Care Instructions: Chest Pain (ED), Rhabdomyolysis (ED), Abdominal Pain (ED) Additional Instructions: Your lab work today showed slight breakdown of the muscle however this improved with IV fluids. MAKE SURE YOU ARE STAYING HYDRATED. IT IS IMPORTANT TO KEEP UP YOUR WATER INTAKE. Your lab work today was otherwise reassuring. Your urine is negative for infection. You tested negative for COVID, flu, RSV. The CT scan of your head/brain does not demonstrate acute bleed or skull fracture. The CT scan of your neck does not demonstrate acute fracture. The x-ray of your chest does not show pneumonia or fluid. The imaging of your abdomen does not demonstrate acute intra-abdominal pathology. There is no etiology for your abdominal pain. Please take Tylenol at home for pain. Follow-up with your primary care provider. Return with new or worsening symptoms. In the case of an emergency call 911. Prescriptions: No Action sennosides [senna] 8.6 mg tablet 8.6 mg PO BEDTIME PRN (Reason: Constipation) 90 Days Qty: 90 1RF polyethylene glycol 3350 [ClearLax] 17 gram/dose powder 17 g PO BID PRN (Reason: Constipation) 90 Days Qty: 510 1RF omeprazole 20 mg capsule,delayed release(DR/EC) 20 mg PO DAILY 90 Days Qty: 90 1RF albuterol sulfate [Ventolin HFA] 90 mcg/actuation HFA aerosol inhaler 2 puff INHALATION Q4-6H PRN (Reason: Dyspnea) zolpidem 12.5 mg tablet,ext release multiphase 12.5 mg PO BEDTIME PRN (Reason: insomnia ) benztropine 0.5 mg tablet 0.5 mg PO BID diphenhydramine HCl 25 mg tablet 50 mg PO BEDTIME mirtazapine 45 mg tablet 45 mg PO BEDTIME melatonin 5 mg tablet 10 mg PO BEDTIME acetaminophen [Tylenol] 325 mg capsule 325 mg PO QID PRN (Reason: pain) 7 Days Qty: 28 0RF ondansetron 4 mg tablet,disintegrating 4 mg PO Q6-8H PRN (Reason: nausea and vomiting) Qty: 10 0RF metformin 500 mg Tablet Extended Release 24 Hr 500 mg PO DAILY atenolol 25 mg Tablet 25 mg PO DAILY amitriptyline 100 mg Tablet 125 mg PO BEDTIME cholecalciferol (vitamin D3) [Vitamin D3] 25 mcg (1,000 unit) Tablet 25 mcg PO DAILY clonidine HCl 0.2 mg Tablet 0.2 mg PO TID acetaminophen 500 mg tablet 1,000 mg PO QID PRN (Reason: pain) Qty: 30 0RF hydroxyzine HCl 50 mg tablet 50 mg PO QID PRN (Reason: anxiety) Interventions: ED Discharge Assessment Last Done: 07/01/23 16:32 Discharge Date/Time: 07/01/23 16:35
[2023-07-01 08:41] LABS: MANUAL DIFF FLAG NO
[2023-07-01 08:51] LABS: Basophils Percent Auto 0.4 % (0-2); Eosinophils Absolute Auto 0.1 X10*3/uL (0.0-0.4); Hematocrit 33.3 % (42.0-52.0); Hemoglobin 11.3 g/dl (14.0-18.0); Imm Gran Abs Auto 0.02 X10*3/uL (0.00-0.03); Imm Gran Pct Auto 0.3 % (0.0-0.4); Lymphocytes Absolute Auto 0.9 X10*3/uL (1.2-4.9); Lymphocytes Percent Auto 13.4 % (20-40); Mean Corpuscular HGB Conc 33.9 g/dl (31.0-36.0); Mean Corpuscular Hemoglobin 29.4 pg (27.0-33.0); Mean Corpuscular Volume 86.7 fL (80.0-98.0); Mean Platelet Volume 9.1 fL (9.4-12.4); Monocytes Absolute Auto 0.5 X10*3/uL (0.1-1.2); Neutrophils Absolute Auto 5.4 x10*3/uL (2.0-8.3); Neutrophils Percent Auto 76.9 % (45-73); Platelet Count 224 X10*3/uL (160-400); Red Blood Count 3.84 X10*6/uL (4.60-5.80); Red Cell Distribution Width 14.5 % (11.0-16.0)
[2023-07-01 09:02] LABS: Anion Gap 15 (12-20)
[2023-07-01 09:03] LABS: Alanine Aminotransferase 23 U/L (0-40); Albumin Level 3.8 g/dL (3.5-5.0); Alkaline Phosphatase 66 U/L (39-117); Aspartate Amino Transferase 59 U/L (5-37); Bilirubin Total 0.3 mg/dL (0.0-1.0); Blood Urea Nitrogen 3 mg/dL (9-16); Calcium 9.3 mg/dL (8.4-10.2); Carbon Dioxide 25 mmol/L (22-29); Chloride 101 mmol/L (96-108); Creatinine Clr Calc Pharmacy 100.8; Estimated Glomerular Filt Rate > 60; Glucose Random 109 mg/dL (60-115); Lipase 7 U/L (8-78); Magnesium 1.5 mg/dL (1.6-2.6); Potassium 3.4 mmol/L (3.3-5.1); Sodium 138 mmol/L (135-145); Total Protein 7.2 g/dL (6.5-8.0)
[2023-07-01 09:08] LABS: Troponin-I High Sensitivity < 2.7 ng/L (<3.5-35.0)
--- NOTE | 2023-07-01 09:14 | PC.NURSE ---
With hotel office manager at bedside patient as reported multiple different symptoms, stories, and situations. EMS report to RN report to provider report are all different. Orders placed at this time, awaiting results.
[2023-07-01 09:23] LABS: Influenza A PCR NEGATIVE (Negative); Influenza B PCR NEGATIVE (Negative); Resp Syncy Virus RNA Qual PCR NEGATIVE (Negative); SARS COV2 PCR INHOUSE NEGATIVE (Negative)
[2023-07-01] MEDS: Morphine Sulfate Immed Release 15 MG TABLET PO (09:35)
[2023-07-01 09:47] LABS: Ethanol < 10 mg/dL
[2023-07-01] MEDS: 0.9 % Sodium Chloride 1,000 ML 999 ML IV ×3 (10:09→13:54)
[2023-07-01 10:40] VITALS: BP 144/92; PULSE 91; RESP 16; TEMP 36.4; O2SAT 99
--- NOTE | 2023-07-01 11:50 | PC.NURSE ---
ssumed care of this patient at 1100, patient continues to c/o abd pain, lying quietly on stretcher, fluids running, to CT for scan.
[2023-07-01 12:00] VITALS: BP 171/82; PULSE 94; RESP 15; O2SAT 95
[2023-07-01 12:35] VITALS: BP 143/84; PULSE 72; RESP 12; TEMP 36.6
[2023-07-01 13:07] LABS: Troponin-I High Sensitivity < 2.7 ng/L (<3.5-35.0)
[2023-07-01 14:57] VITALS: BP 152/87; PULSE 82; RESP 14; O2SAT 98
[2023-07-01 15:01] LABS: Appearance Urine Clear; Color Urine Yellow; Glucose Urine UA Negative (Negative); Leukocyte Esterase Urine Negative (Negative); Nitrite Urine Negative (Negative); PH 6.5 (5.0-9.0); Specific Gravity - Urine <= 1.005 (1.005-1.025); Urine Blood Negative (Negative); Urine Ketones Trace mg/dL (Negative); Urine Protein Negative (Neg-Trace)
[2023-07-01 15:15] LABS: Amphetamine Screen Urine Not Detected (Not Detect); Barbiturates, Urine Not Detected (Not Detect); Benzodiazepines Screen Urine Not Detected (Not Detect); Cannabinoid Screen Urine Not Detected (Not Detect); Cocaine Screen Urine Not Detected (Not Detect); Fentanyl, urine Not Detected (Not Detect); Opiate Screen Urine POSITIVE (Not Detect); Phencyclidine Screen Urine Not Detected (Not Detect)
[2023-07-01 16:32] VITALS: BP 152/87; PULSE 82; RESP 14; TEMP 36.6; O2SAT 98
--- NOTE | 2023-07-01 16:35 | PC.NURSE ---
Patient upset to be getting D/C'd this pm, reiterated with phlebotomy technician that patient's tests are all negative and there is no need for patient to stay in ER at this time. Patient requested uber home, bus pass obtained.
== END 2023-07-01 16:35 | disposition home or self-care (01) ==
PROVIDERS: Physician Assistant Medical; Emergency Provider Emergency Medicine Emergency Medical Services; PCP Internal Medicine
DX: M62.82 Rhabdomyolysis (principal); E87.6 Hypokalemia; R07.9 Chest pain, unspecified; R42 Dizziness and giddiness; D64.9 Anemia, unspecified; R10.11 Right upper quadrant pain; S09.90XA Unspecified injury of head, initial encounter; W18.30XA Fall on same level, unspecified, initial encounter; Y93.9 Activity, unspecified; Y92.9 Unspecified place or not applicable; Y99.9 Unspecified external cause status
CPT/HCPCS: 0241U; 36415; 70450; 71046; 72125; 74176; 80053; 80307; 81003; 82550; 83690; 83735; 84484; 85025; 93005; 96360; 96361; 99285

== ENCOUNTER → 2023-07-01 08:49 | Outpatient (BNV) | payer MEDICAID, SELFPAY | PROVIDERS: Emergency Provider Emergency Medicine Emergency Medical Services; PCP Internal Medicine; Visit Provider Internal Medicine Cardiovascular Disease | DX: R07.9 Chest pain, unspecified (principal) | CPT/HCPCS: 93010 ==

== ENCOUNTER 2023-07-02 11:22 | Emergency (ER) | payer MEDICAID, SELFPAY ==
--- NOTE | 2023-07-02 | ECG_ITS ---
Test Reason : CP Blood Pressure : / mmHG Vent. Rate : 093 BPM Atrial Rate : 093 BPM P-R Int : 146 ms QRS Dur : 080 ms QT Int : 372 ms P-R-T Axes : 018 -08 011 degrees QTc Int : 462 ms Normal sinus rhythm Minimal voltage criteria for LVH, may be normal variant ( R in aVL ) Borderline ECG When compared with ECG of 01-JUL-2023 08:49, No significant change was found Referred By: Generic ED Physician Electronically Signed By:Scottie Figueroa
[2023-07-02 11:32] VITALS: BP 142/90; PULSE 102; O2SAT 95
[2023-07-02 11:37] VITALS: BP 134/78; PULSE 93; RESP 19; TEMP 36.6; O2SAT 98; BMI 24.7
--- NOTE | 2023-07-02 11:43 | MHC.EDTECH ---
When attempting to oil change technician pt to hospital gown and perform EKG, pt states he wants to go home, pt tried to get out of bed during EKG, pt was educated on the importance of finishing the EKG d/t pt complaining of CP. EKG was done, doctor and RN aware of pt's request.
--- NOTE | 2023-07-03 13:29 | PC.NURSE ---
Follow up call made to patient. Left message on both cellphone numbers on file to call back. Voicemail does not have a name associated with it in automated message. When patient calls back, need to recommend that they follow up with their PCP due to their labwork showing a low magnesium level.
--- NOTE | 2023-07-03 13:40 | PC.NURSE ---
Return call from Carolyn Johnston who works with Jerson on her case load. She will bring Jerson to his PCP
== END 2023-07-02 12:23 | disposition left against medical advice (07) ==
PROVIDERS: Emergency Provider Emergency Medicine
DX: R07.9 Chest pain, unspecified (principal); M54.9 Dorsalgia, unspecified
CPT/HCPCS: 93005; 99283

== ENCOUNTER → 2023-07-02 11:37 | Outpatient (BNV) | payer MEDICAID, SELFPAY | PROVIDERS: Emergency Provider Emergency Medicine; Visit Provider Internal Medicine Cardiovascular Disease | DX: R07.9 Chest pain, unspecified (principal) | CPT/HCPCS: 93010 ==

== ENCOUNTER 2023-07-02 15:31 | Emergency (ER) | payer MEDICAID, SELFPAY ==
[2023-07-02 15:44] VITALS: BP 198/110; PULSE 98; O2SAT 96
--- NOTE | 2023-07-02 15:47 | ECG_ITS ---
Test Reason : CHEST PAIN Blood Pressure : / mmHG Vent. Rate : 090 BPM Atrial Rate : 090 BPM P-R Int : 140 ms QRS Dur : 080 ms QT Int : 372 ms P-R-T Axes : 017 -07 015 degrees QTc Int : 455 ms Normal sinus rhythm Minimal voltage criteria for LVH, may be normal variant ( R in aVL ) Borderline ECG When compared with ECG of 02-JUL-2023 11:37, No significant change was found Referred By: Tri Estrada Electronically Signed By:Scottie Figueroa
[2023-07-02 16:03] LABS: MANUAL DIFF FLAG NO
[2023-07-02 16:07] LABS: Basophils Percent Auto 0.5 % (0-2); Eosinophils Absolute Auto 0.2 X10*3/uL (0.0-0.4); Eosinophils Percent Auto 4.1 % (0-4); Hematocrit 31.1 % (42.0-52.0); Hemoglobin 10.5 g/dl (14.0-18.0); Imm Gran Abs Auto 0.01 X10*3/uL (0.00-0.03); Imm Gran Pct Auto 0.2 % (0.0-0.4); Lymphocytes Absolute Auto 1.6 X10*3/uL (1.2-4.9); Lymphocytes Percent Auto 27.7 % (20-40); Mean Corpuscular HGB Conc 33.8 g/dl (31.0-36.0); Mean Corpuscular Hemoglobin 29.4 pg (27.0-33.0); Mean Corpuscular Volume 87.1 fL (80.0-98.0); Mean Platelet Volume 9.1 fL (9.4-12.4); Monocytes Absolute Auto 0.4 X10*3/uL (0.1-1.2); Monocytes Percent Auto 6.9 % (2-11); Neutrophils Absolute Auto 3.6 x10*3/uL (2.0-8.3); Neutrophils Percent Auto 60.6 % (45-73); Platelet Count 220 X10*3/uL (160-400); Red Blood Count 3.57 X10*6/uL (4.60-5.80); Red Cell Distribution Width 14.9 % (11.0-16.0); White Blood Count 5.9 X10*3/uL (4.8-10.8)
[2023-07-02 16:08] VITALS: BP 134/83; PULSE 97; RESP 16; TEMP 36.8; O2SAT 95; BMI 24.9
--- NOTE | 2023-07-02 16:09 | ED.ABDPAIN ---
HPI - Abdominal Pain General Chief Complaint: Abdominal Pain Stated Complaint: 01/13 ABD PAIN,CHEST PAIN Related Data Home Medications Medication Instructions Recorded Confirmed hydroxyzine HCl 50 mg tablet 50 mg PO QID PRN anxiety 03/03/22 05/10/23 amitriptyline 100 mg tablet 125 mg PO BEDTIME 07/11/22 05/09/23 atenolol 25 mg tablet 25 mg PO DAILY 07/11/22 05/09/23 cholecalciferol (vitamin D3) 25 25 mcg PO DAILY 07/11/22 05/09/23 mcg (1,000 unit) tablet (Vitamin D3) clonidine HCl 0.2 mg tablet 0.2 mg PO TID 07/11/22 05/10/23 metformin 500 mg tablet,extended 500 mg PO DAILY 07/11/22 05/10/23 release 24 hr albuterol sulfate 90 mcg/actuation 2 puff inhalation Q4-6H PRN Dyspnea 05/09/23 05/09/23 aerosol inhaler (Ventolin HFA) zolpidem 12.5 mg tablet,extended 12.5 mg PO BEDTIME PRN insomnia 05/09/23 05/09/23 release,multiphase benztropine 0.5 mg tablet 0.5 mg PO BID 05/10/23 05/10/23 diphenhydramine HCl 25 mg tablet 50 mg PO BEDTIME 05/10/23 05/10/23 melatonin 5 mg tablet 10 mg PO BEDTIME 05/10/23 05/10/23 mirtazapine 45 mg tablet 45 mg PO BEDTIME 05/10/23 05/10/23 Previous Rx's Medication Instructions Recorded acetaminophen 500 mg tablet 1,000 mg (2 x 500 mg) PO QID PRN 03/23/23 pain #30 tabs acetaminophen 325 mg capsule 325 mg PO QID PRN pain 7 days #28 06/07/23 (Tylenol) caps omeprazole 20 mg capsule,delayed 20 mg PO DAILY 90 days #90 caps 06/18/23 release polyethylene glycol 3350 17 17 g PO BID PRN Constipation 90 06/18/23 gram/dose oral powder (ClearLax) days #510 grams sennosides 8.6 mg tablet (senna) 8.6 mg PO BEDTIME PRN Constipation 06/18/23 90 days #90 tabs ondansetron 4 mg disintegrating 4 mg PO Q6-8H PRN nausea and 06/20/23 tablet vomiting #10 tabs Allergies Allergy/AdvReac Type Severity Reaction Status Date / Time trazodone [TRAZODONE] Allergy Severe FACIAL Verified 07/02/23 16:07 SWELLING, swelling cat dander [CATS] Allergy Intermediate FACIAL Verified 07/02/23 16:07 ITCHING doxepin [DOXEPIN] Allergy Intermediate WEIGHT Verified 07/02/23 16:07 GAIN/LEG SWELLING Iodinated Contrast Media Allergy Intermediate ITCHING Verified 07/02/23 16:07 [IV DYE, IODINE CONTAINING CONTRAST ] nitroglycerin [NITROGLYCERIN] Allergy Unknown UNKNOWN Verified 07/02/23 16:07 tramadol [TRAMADOL] Allergy Unknown UNKNOWN, Verified 07/02/23 16:07 dry mouth ibuprofen [From MOTRIN] AdvReac Intermediate GI UPSET Verified 07/02/23 16:07 quetiapine [From SEROQUEL] AdvReac Intermediate FACIAL Verified 07/02/23 16:07 SWELLING aspirin [ASPIRIN] AdvReac Mild Stomach Verified 07/02/23 16:07 Upset Ibuprofen Allergy Unknown stomach Uncoded 06/20/23 15:42 ache IV contrast Allergy Unknown Unknown Uncoded 06/20/23 15:42 Motrin Allergy Unknown stomach Uncoded 06/20/23 15:42 pain PMFSH Past Medical History 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 GERD (gastroesophageal reflux disease) Anxiety Surgical History History of colonoscopy History of cystoscopy H/O umbilical hernia repair Family History Family History Father HTN (hypertension) Diabetes Mother HTN (hypertension) Stroke Alzheimer disease Heart disease Social History Social History Household Members: None Housing: Apartment Do you presently have visiting nurse or other home services: Yes Alcohol intake: never Comment: 1:1 sitter Patient Tobacco Use Status: Current everyday Tobacco user Tobacco use type: Cigarette Cigarette Packs Per Day: 1 Cigarettes Per Day: 20.0 Years Smoked: 9 e-Cigarette/Vaping Use: Never Used Second Hand Smoke Exposure: Yes Substance Use Type: Heroin and Opiates Advance Directives: Yes Advance Directives on File: Yes Advance Directives Date on File: 02/14/20 service: No Current occupational status: unemployed and disabled Sexual orientation: Straight/Heterosexual Physical Exam ED Vital Signs: BMI result Body Mass Index 24.9 Course Course Course Narrative: RME:?53 yo Polish speaking male with pmhx significant for GERD, depression, bipolar disorder, opioid use disorder, and alcohol use disorder here w/ RLQ and chest pain x2 months. endorses diarrhea, N/V with poor PO intake. seen here yest, in slight rhabdo, given IVF and discharged home. denies etoh use. abd distended labs, ekg, serology ordered. Full HPI, ROS and PE to be performed by the primary ED provider. Reevaluation(s) Reevaluation #1: Patient left the emergency department without completing treatment. Medical Decision Making Lab Data 07/02/23 15:58 07/02/23 15:58 Labs: Lab Results 07/02/23 Range/Units 15:58 WBC 5.9 (4.8-10.8) X10*3/uL RBC 3.57 L (4.60-5.80) X10*6/uL Hgb 10.5 L (14.0-18.0) g/dl Hct 31.1 L (42.0-52.0) % MCV 87.1 (80.0-98.0) fL MCH 29.4 (27.0-33.0) pg MCHC 33.8 (31.0-36.0) g/dl RDW 14.9 (11.0-16.0) % Plt Count 220 (160-400) X10*3/uL MPV 9.1 L (9.4-12.4) fL Immature Gran % (Auto) 0.2 (0.0-0.4) % Neut % (Auto) 60.6 (45-73) % Lymph % (Auto) 27.7 (20-40) % Early % (Auto) 6.9 (2-11) % Eos % (Auto) 4.1 H (0-4) % Baso % (Auto) 0.5 (0-2) % Lymph # (Auto) 1.6 (1.2-4.9) X10*3/uL Early # (Auto) 0.4 (0.1-1.2) X10*3/uL Eos # (Auto) 0.2 (0.0-0.4) X10*3/uL Baso # (Auto) 0.0 (0.0-0.2) X10*3/uL Abs Immat Gran (auto) 0.01 (0.00-0.03) X10*3/uL Absolute Neuts (auto) 3.6 (2.0-8.3) x10*3/uL Absolute Nucleated RBC 0.000 (0.0-0.012) X10*3/uL Nucleated RBC % (auto) 0.0 (0.0-0.2) /100WBC Sodium 143 (135-145) mmol/L Potassium 3.0 L (3.3-5.1) mmol/L Chloride 107 (96-108) mmol/L Carbon Dioxide 28 (22-29) mmol/L Anion Gap 11 L (12-20) BUN < 3 L (9-16) mg/dL Creatinine 0.76 (0.5-1.4) mg/dL Estim Creat Clear Calc 95.5 Estimated GFR > 60 Random Glucose 88 (60-115) mg/dL Calcium 8.9 (8.4-10.2) mg/dL Magnesium 1.2 L* (1.6-2.6) mg/dL Total Bilirubin 0.3 (0.0-1.0) mg/dL AST 45 H (5-37) U/L ALT 24 (0-40) U/L Alkaline Phosphatase 62 (39-117) U/L Total Creatine Kinase 918 H (38-174) U/L Troponin I High Sens < 2.7 (<3.5-35.0) ng/L Total Protein 6.8 (6.5-8.0) g/dL Albumin 3.8 (3.5-5.0) g/dL Lipase 7 L (8-78) U/L Discharge Plan Discharge Clinical Impression: Chest pain Patient Disposition: Left W/O Completing Treatment Prescriptions: No Action sennosides [senna] 8.6 mg tablet 8.6 mg PO BEDTIME PRN (Reason: Constipation) 90 Days Qty: 90 1RF polyethylene glycol 3350 [ClearLax] 17 gram/dose powder 17 g PO BID PRN (Reason: Constipation) 90 Days Qty: 510 1RF omeprazole 20 mg capsule,delayed release(DR/EC) 20 mg PO DAILY 90 Days Qty: 90 1RF albuterol sulfate [Ventolin HFA] 90 mcg/actuation HFA aerosol inhaler 2 puff INHALATION Q4-6H PRN (Reason: Dyspnea) zolpidem 12.5 mg tablet,ext release multiphase 12.5 mg PO BEDTIME PRN (Reason: insomnia ) benztropine 0.5 mg tablet 0.5 mg PO BID diphenhydramine HCl 25 mg tablet 50 mg PO BEDTIME mirtazapine 45 mg tablet 45 mg PO BEDTIME melatonin 5 mg tablet 10 mg PO BEDTIME acetaminophen [Tylenol] 325 mg capsule 325 mg PO QID PRN (Reason: pain) 7 Days Qty: 28 0RF ondansetron 4 mg tablet,disintegrating 4 mg PO Q6-8H PRN (Reason: nausea and vomiting) Qty: 10 0RF metformin 500 mg Tablet Extended Release 24 Hr 500 mg PO DAILY atenolol 25 mg Tablet 25 mg PO DAILY amitriptyline 100 mg Tablet 125 mg PO BEDTIME cholecalciferol (vitamin D3) [Vitamin D3] 25 mcg (1,000 unit) Tablet 25 mcg PO DAILY clonidine HCl 0.2 mg Tablet 0.2 mg PO TID acetaminophen 500 mg tablet 1,000 mg PO QID PRN (Reason: pain) Qty: 30 0RF hydroxyzine HCl 50 mg tablet 50 mg PO QID PRN (Reason: anxiety) Discharge Date/Time: 07/03/23 03:15
[2023-07-02 16:24] LABS: Alanine Aminotransferase 24 U/L (0-40); Albumin Level 3.8 g/dL (3.5-5.0); Alkaline Phosphatase 62 U/L (39-117); Anion Gap 11 (12-20); Aspartate Amino Transferase 45 U/L (5-37); Bilirubin Total 0.3 mg/dL (0.0-1.0); Blood Urea Nitrogen < 3 mg/dL (9-16); Calcium 8.9 mg/dL (8.4-10.2); Carbon Dioxide 28 mmol/L (22-29); Chloride 107 mmol/L (96-108); Creatinine Clr Calc Pharmacy 95.5; Estimated Glomerular Filt Rate > 60; Glucose Random 88 mg/dL (60-115); Lipase 7 U/L (8-78); Magnesium 1.2 mg/dL (1.6-2.6); Sodium 143 mmol/L (135-145); Total Protein 6.8 g/dL (6.5-8.0)
[2023-07-02 16:29] LABS: Troponin-I High Sensitivity < 2.7 ng/L (<3.5-35.0)
--- NOTE | 2023-07-02 21:38 | PC.NURSE ---
Pt not present in [facility] when called x 2.
== END 2023-07-03 03:15 | disposition left against medical advice (07) ==
PROVIDERS: Physician Assistant Medical; Emergency Provider Emergency Medicine
DX: R07.9 Chest pain, unspecified (principal)
CPT/HCPCS: 36415; 80053; 82550; 83690; 83735; 84484; 85025; 93005; 99283

== ENCOUNTER 2023-07-03 12:41 | Emergency (ER) | payer MEDICAID, SELFPAY ==
[2023-07-03 12:50] VITALS: BP 116/75; PULSE 62; O2SAT 99
--- NOTE | 2023-07-03 13:18 | ED_ITS ---
HPI - General Adult General Chief complaint: Abdominal Pain Stated complaint: Upper right quad pain and chest pain x 1wk Time Seen by Provider: 07/03/23 16:05 Source: patient Mode of arrival: ambulatory Limitations: language barrier (Yakut speaking only, assistant press operator used) History of Present Illness HPI narrative: 53-year-old male with a history of alcohol dependence, opiate abuse, chest pain, dysphagia, depression, heard, anxiety who presents to the emergency department for evaluation of of abdominal pain x2 weeks. He complains of chills but no fever . He states that he has had increased fatigue, myalgias, nausea with no vomiting, no diarrhea. Patient states that he has been having abdominal pain for 2 weeks any runs his hand diffusely across his abdomen when asked to localize the pain. He states that the pain is a constant, tightness which is severe. Patient states he has had a decreased appetite. Patient seen frequently here in the emergency department for abdominal pain. He was last seen for abdominal pain on 07/01/2023 and for chest pain on 07/02/2023. Related Data Home Medications Medication Instructions Recorded Confirmed hydroxyzine HCl 50 mg tablet 50 mg PO QID PRN anxiety 03/03/22 05/10/23 amitriptyline 100 mg tablet 125 mg PO BEDTIME 07/11/22 05/09/23 atenolol 25 mg tablet 25 mg PO DAILY 07/11/22 05/09/23 cholecalciferol (vitamin D3) 25 25 mcg PO DAILY 07/11/22 05/09/23 mcg (1,000 unit) tablet (Vitamin D3) clonidine HCl 0.2 mg tablet 0.2 mg PO TID 07/11/22 05/10/23 metformin 500 mg tablet,extended 500 mg PO DAILY 07/11/22 05/10/23 release 24 hr albuterol sulfate 90 mcg/actuation 2 puff inhalation Q4-6H PRN Dyspnea 05/09/23 05/09/23 aerosol inhaler (Ventolin HFA) zolpidem 12.5 mg tablet,extended 12.5 mg PO BEDTIME PRN insomnia 05/09/23 05/09/23 release,multiphase benztropine 0.5 mg tablet 0.5 mg PO BID 05/10/23 05/10/23 diphenhydramine HCl 25 mg tablet 50 mg PO BEDTIME 05/10/23 05/10/23 melatonin 5 mg tablet 10 mg PO BEDTIME 05/10/23 05/10/23 mirtazapine 45 mg tablet 45 mg PO BEDTIME 05/10/23 05/10/23 Previous Rx's Medication Instructions Recorded acetaminophen 500 mg tablet 1,000 mg (2 x 500 mg) PO QID PRN 03/23/23 pain #30 tabs acetaminophen 325 mg capsule 325 mg PO QID PRN pain 7 days #28 06/07/23 (Tylenol) caps omeprazole 20 mg capsule,delayed 20 mg PO DAILY 90 days #90 caps 06/18/23 release polyethylene glycol 3350 17 17 g PO BID PRN Constipation 90 06/18/23 gram/dose oral powder (ClearLax) days #510 grams sennosides 8.6 mg tablet (senna) 8.6 mg PO BEDTIME PRN Constipation 06/18/23 90 days #90 tabs ondansetron 4 mg disintegrating 4 mg PO Q6-8H PRN nausea and 06/20/23 tablet vomiting #10 tabs oseltamivir 75 mg capsule (Tamiflu) 75 mg PO Q12H 5 days #10 caps 07/03/23 Allergies Allergy/AdvReac Type Severity Reaction Status Date / Time trazodone [TRAZODONE] Allergy Severe FACIAL Verified 07/02/23 16:07 SWELLING, swelling cat dander [CATS] Allergy Intermediate FACIAL Verified 07/02/23 16:07 ITCHING doxepin [DOXEPIN] Allergy Intermediate WEIGHT Verified 07/02/23 16:07 GAIN/LEG SWELLING Iodinated Contrast Media Allergy Intermediate ITCHING Verified 07/02/23 16:07 [IV DYE, IODINE CONTAINING CONTRAST ] nitroglycerin [NITROGLYCERIN] Allergy Unknown UNKNOWN Verified 07/02/23 16:07 tramadol [TRAMADOL] Allergy Unknown UNKNOWN, Verified 07/02/23 16:07 dry mouth ibuprofen [From MOTRIN] AdvReac Intermediate GI UPSET Verified 07/02/23 16:07 quetiapine [From SEROQUEL] AdvReac Intermediate FACIAL Verified 07/02/23 16:07 SWELLING aspirin [ASPIRIN] AdvReac Mild Stomach Verified 07/02/23 16:07 Upset Ibuprofen Allergy Unknown stomach Uncoded 06/20/23 15:42 ache IV contrast Allergy Unknown Unknown Uncoded 06/20/23 15:42 Motrin Allergy Unknown stomach Uncoded 06/20/23 15:42 pain Review of Systems 2 Review of Systems: Yes all other systems are reviewed and are negative [facility] Past Medical History [facility] Narrative: Social history: He denies tobacco, alcohol and drug use. Patient has had recent drug screen is positive for opiates, fentanyl, benzodiazepines and cocaine. 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 GERD (gastroesophageal reflux disease) Anxiety Surgical History History of colonoscopy History of cystoscopy H/O umbilical hernia repair Family History Family History Father HTN (hypertension) Diabetes Mother HTN (hypertension) Stroke Alzheimer disease Heart disease Social History Social History Household Members: None Housing: Apartment Do you presently have visiting nurse or other home services: Yes Alcohol intake: former Comment: 1:1 sitter Patient Tobacco Use Status: Current everyday Tobacco user Tobacco use type: Cigarette Cigarette Packs Per Day: 1 Cigarettes Per Day: 20.0 Years Smoked: 9 Smoked in Last 30 Days: Yes e-Cigarette/Vaping Use: Never Used Second Hand Smoke Exposure: Yes Use of substances other than those prescribed or required for medical reasons: No Substance Use Type: Heroin and Opiates Advance Directives: Yes Advance Directives on File: Yes Advance Directives Date on File: 02/14/20 service: No Current occupational status: unemployed and disabled Sexual orientation: Straight/Heterosexual Physical Exam ED Vital Signs: Vital Signs - 24 hr 07/03/23 13:19 07/03/23 16:28 Temperature 98.1 F 97.9 F Pulse Rate 62 55 Respiratory Rate 17 20 Blood Pressure 105/65 132/77 Pulse Oximetry 100 100 Oxygen Delivery Method Room Air Room Air BMI result Body Mass Index 24.5 Vital signs were normal Exam: General: Awake, alert in no distress Head: Normocephalic, atraumatic EENT: PERRL, Lids normal, sclera normal, conjunctiva normal, nose normal , ears normal, throat without erythema or exudates Neck: Supple, no adenopathy Lung: breath sounds symmetric, no wheezing, rales or rhonchi Chest: symmetric movement, nontender Heart: regular rate and rhythm, normal S1, S2 no murmurs or rubs Abdomen: Moderate diffuse tenderness, normoactive bowel sounds, no rebound, no voluntary or involuntary guarding Back: no vertebral tenderness, no CVAT Extremities: no deformities, moves all extremities symmetrically Neuro: Awake, alert, oriented, normal speech, cranial nerves intact, moves all extremities symmetrically Psych: Pleasant, cooperative Course Course Course Narrative: This is an RME: Additional HPI, ROS, PE not included below will be deferred to primary provider. Patient is a 53-year-old male who presents emergency department for evaluation of right upper quadrant abdominal pain and left anterior chest pain for the past week. He has been to the emergency department past 3 days with similar symptoms. He reports that right now his pain is different, pain is migrating to the mid lower abdomen at this time. Medications Administered Discontinued Medications Generic Name Dose Route Start Last Admin Trade Name Freq PRN Reason Stop Dose Admin Magnesium Sulfate/Dextrose 1 gm in 100 mls @ 100 mls/hr 07/03/23 17:40 07/03/23 18:07 Magnesium Sulfate/D5w IV 07/03/23 18:39 100 mls/hr ONCE ONE Administration Sodium Chloride 1,000 mls @ 999 mls/hr 07/03/23 17:40 07/03/23 18:09 Ns IV 07/03/23 18:40 999 mls/hr .Q1H1M STA Administration Morphine Sulfate 4 mg 07/03/23 17:40 07/03/23 18:06 Morphine Sulfate 4 Mg/Ml Cartridge IVPUSH 07/03/23 17:41 4 mg ONCE STA Administration Protocol Ondansetron HCl 4 mg 07/03/23 17:40 07/03/23 18:05 Ondansetron Hcl 4 Mg/2 Ml Vial IVPUSH 07/03/23 17:41 4 mg ONCE ONE Administration Medical Decision Making Medical Decision Making MDM Narrative: 53-year-old male with a history of alcohol dependence, opiate abuse, chest pain, dysphagia, depression, heard, anxiety who presents to the emergency department for evaluation of of abdominal pain x2 weeks. He complains of chills but no fever . He states that he has had increased fatigue, myalgias, nausea with no vomiting, no diarrhea. Patient states that he has been having abdominal pain for 2 weeks any runs his hand diffusely across his abdomen when asked to localize the pain. He states that the pain is a constant, tightness which is severe. Patient states he has had a decreased appetite. Patient seen frequently here in the emergency department for abdominal pain. He was last seen for abdominal pain on 07/01/2023 and for chest pain on 07/02/2023. Physical examination revealed normal vital signs. The patient does have diffuse abdominal pain. Differential diagnosis: ?Includes but is not limited to pancreatitis, gastritis, viral syndrome, anemia, electrolyte abnormalities Following evaluation was ordered: CBC, CMP, troponin, urinalysis, lipase, magnesium, COVID-19, influenza, RSV Patient was initially treated with the following: Morphine 4 mg IV, magnesium 1 g IV, normal saline x1 L, Zofran 4 mg IV Course: 19:44 My interpretation patient's laboratory evaluation as follows: Normocytic anemia with an H&H of 10.7 and 32.7-chronic. Normal WBC 8200. Potassium low 3.1. Bicarb elevated 30. BUN below detectable limits, creatinine was normal. Magnesium was low 1.4. AST elevated 38. High sensitive troponin I below detectable limits. Lipase was low at 6. Patient was positive for influenza A The patient did improve after the above treatment. Patient was treated with Tamiflu 75 mg orally for influenza A. Was given prescription for Tamiflu 75 mg twice a day for 5 days Was given printed and verbal instructions and discharged home Admission/Observation Consideration of admission/observation: Escalation of care including admission/observation considered Lab Data [facility] Lab Attestation statement: I reviewed the patient's lab results. 07/03/23 13:47 07/03/23 13:47 Labs: Lab Results 07/03/23 Range/Units 13:47 WBC 8.2 (4.8-10.8) X10*3/uL RBC 3.68 L (4.60-5.80) X10*6/uL Hgb 10.7 L (14.0-18.0) g/dl Hct 32.7 L (42.0-52.0) % MCV 88.9 (80.0-98.0) fL MCH 29.1 (27.0-33.0) pg MCHC 32.7 (31.0-36.0) g/dl RDW 15.1 (11.0-16.0) % Plt Count 221 (160-400) X10*3/uL MPV 8.9 L (9.4-12.4) fL Immature Gran % (Auto) 0.4 (0.0-0.4) % Neut % (Auto) 67.7 (45-73) % Lymph % (Auto) 22.4 (20-40) % Taliaferro % (Auto) 5.2 (2-11) % Eos % (Auto) 3.9 (0-4) % Baso % (Auto) 0.4 (0-2) % Lymph # (Auto) 1.8 (1.2-4.9) X10*3/uL [place]ferro # (Auto) 0.4 (0.1-1.2) X10*3/uL Eos # (Auto) 0.3 (0.0-0.4) X10*3/uL Baso # (Auto) 0.0 (0.0-0.2) X10*3/uL Abs Immat Gran (auto) 0.03 (0.00-0.03) X10*3/uL Absolute Neuts (auto) 5.6 (2.0-8.3) x10*3/uL Absolute Nucleated RBC 0.000 (0.0-0.012) X10*3/uL Nucleated RBC % (auto) 0.0 (0.0-0.2) /100WBC Sodium 140 (135-145) mmol/L Potassium 3.1 L (3.3-5.1) mmol/L Chloride 105 (96-108) mmol/L Carbon Dioxide 30 H (22-29) mmol/L Anion Gap 8 L (12-20) BUN < 3 L (9-16) mg/dL Creatinine 0.83 (0.5-1.4) mg/dL Estim Creat Clear Calc 87.4 Estimated GFR > 60 Random Glucose 111 (60-115) mg/dL Calcium 8.8 (8.4-10.2) mg/dL Magnesium 1.4 L* (1.6-2.6) mg/dL Total Bilirubin 0.4 (0.0-1.0) mg/dL AST 38 H (5-37) U/L ALT 24 (0-40) U/L Alkaline Phosphatase 61 (39-117) U/L Troponin I High Sens < 2.7 (<3.5-35.0) ng/L Total Protein 6.7 (6.5-8.0) g/dL Albumin 3.6 (3.5-5.0) g/dL Lipase 6 L (8-78) U/L Influenza Type A (PCR) NEGATIVE (Negative) Influenza Type B (PCR) NEGATIVE (Negative) RSV RNA Qual (PCR) NEGATIVE (Negative) SARS-CoV-2 RNA (RT-PCR) POSITIVE A (Negative) Independent Interpretation I performed an independent interpretation of an: EKG Interpretation: My independent interpretation of the patient's 12 EKG done at 13:40 hours is as follows: Sinus bradycardia with a rate of 58, normal MI interval, QRS duration QTC interval, no ST segment elevation, no ST segment depression, no PACs, no PVCs except for the bradycardia this is a normal EKG Prescription Management I considered prescription management with: Antiviral (Tamiflu) and Other Chronic Conditions Patient?s care impacted by: Other (Alcohol use disorder) Discharge Plan Discharge Clinical Impression: Abdominal pain, Alcohol use disorder, Hypomagnesemia, Influenza A Patient Disposition: Home, Self-Care Instructions: Influenza (ED) Additional Instructions: You need to stop drinking alcohol Your blood work did reveal low magnesium and low potassium this is secondary to your alcohol use and to the fact that your not eating enough food because of your drinking Your influenza test was positive for influenza A. This is a virus that will cause you to have fever, chills, muscle aches, fatigue, cough and shortness of breath I am treating you with a medication that fights off the influenza virus. This medication is called Tamiflu Take Tamiflu (oseltamivir) 75 mg pills, take 1 pill every 12 hours for 5 days Follow-up with your doctor in 2 days. Please return to the emergency department if your symptoms get worse or if you develop any symptoms that are concerning to you. Prescriptions: New oseltamivir [Tamiflu] 75 mg capsule 75 mg PO Q12H 5 Days Qty: 10 0RF No Action sennosides [senna] 8.6 mg tablet 8.6 mg PO BEDTIME PRN (Reason: Constipation) 90 Days Qty: 90 1RF polyethylene glycol 3350 [ClearLax] 17 gram/dose powder 17 g PO BID PRN (Reason: Constipation) 90 Days Qty: 510 1RF omeprazole 20 mg capsule,delayed release(DR/EC) 20 mg PO DAILY 90 Days Qty: 90 1RF albuterol sulfate [Ventolin HFA] 90 mcg/actuation HFA aerosol inhaler 2 puff INHALATION Q4-6H PRN (Reason: Dyspnea) zolpidem 12.5 mg tablet,ext release multiphase 12.5 mg PO BEDTIME PRN (Reason: insomnia ) benztropine 0.5 mg tablet 0.5 mg PO BID diphenhydramine HCl 25 mg tablet 50 mg PO BEDTIME mirtazapine 45 mg tablet 45 mg PO BEDTIME melatonin 5 mg tablet 10 mg PO BEDTIME acetaminophen [Tylenol] 325 mg capsule 325 mg PO QID PRN (Reason: pain) 7 Days Qty: 28 0RF ondansetron 4 mg tablet,disintegrating 4 mg PO Q6-8H PRN (Reason: nausea and vomiting) Qty: 10 0RF metformin 500 mg Tablet Extended Release 24 Hr 500 mg PO DAILY atenolol 25 mg Tablet 25 mg PO DAILY amitriptyline 100 mg Tablet 125 mg PO BEDTIME cholecalciferol (vitamin D3) [Vitamin D3] 25 mcg (1,000 unit) Tablet 25 mcg PO DAILY clonidine HCl 0.2 mg Tablet 0.2 mg PO TID acetaminophen 500 mg tablet 1,000 mg PO QID PRN (Reason: pain) Qty: 30 0RF hydroxyzine HCl 50 mg tablet 50 mg PO QID PRN (Reason: anxiety)
[2023-07-03 13:19] VITALS: BP 105/65; PULSE 62; RESP 17; TEMP 36.7; O2SAT 100; BMI 24.5
--- NOTE | 2023-07-03 13:21 | ECG_ITS ---
Test Reason : CP Blood Pressure : / mmHG Vent. Rate : 058 BPM Atrial Rate : 058 BPM P-R Int : 142 ms QRS Dur : 082 ms QT Int : 452 ms P-R-T Axes : 042 011 029 degrees QTc Int : 443 ms Sinus bradycardia Otherwise normal ECG When compared with ECG of 02-JUL-2023 15:51, Vent. rate has decreased BY 32 BPM Referred By: Jenna Feliciano Electronically Signed By:Scottie Figueroa
[2023-07-03 13:51] LABS: MANUAL DIFF FLAG NO
[2023-07-03 13:54] LABS: Basophils Percent Auto 0.4 % (0-2); Eosinophils Absolute Auto 0.3 X10*3/uL (0.0-0.4); Eosinophils Percent Auto 3.9 % (0-4); Hematocrit 32.7 % (42.0-52.0); Hemoglobin 10.7 g/dl (14.0-18.0); Imm Gran Abs Auto 0.03 X10*3/uL (0.00-0.03); Imm Gran Pct Auto 0.4 % (0.0-0.4); Lymphocytes Absolute Auto 1.8 X10*3/uL (1.2-4.9); Lymphocytes Percent Auto 22.4 % (20-40); Mean Corpuscular HGB Conc 32.7 g/dl (31.0-36.0); Mean Corpuscular Hemoglobin 29.1 pg (27.0-33.0); Mean Corpuscular Volume 88.9 fL (80.0-98.0); Mean Platelet Volume 8.9 fL (9.4-12.4); Monocytes Absolute Auto 0.4 X10*3/uL (0.1-1.2); Monocytes Percent Auto 5.2 % (2-11); Neutrophils Absolute Auto 5.6 x10*3/uL (2.0-8.3); Neutrophils Percent Auto 67.7 % (45-73); Platelet Count 221 X10*3/uL (160-400); Red Blood Count 3.68 X10*6/uL (4.60-5.80); Red Cell Distribution Width 15.1 % (11.0-16.0); White Blood Count 8.2 X10*3/uL (4.8-10.8)
[2023-07-03 14:19] LABS: Alanine Aminotransferase 24 U/L (0-40); Albumin Level 3.6 g/dL (3.5-5.0); Alkaline Phosphatase 61 U/L (39-117); Anion Gap 8 (12-20); Aspartate Amino Transferase 38 U/L (5-37); Bilirubin Total 0.4 mg/dL (0.0-1.0); Blood Urea Nitrogen < 3 mg/dL (9-16); Calcium 8.8 mg/dL (8.4-10.2); Carbon Dioxide 30 mmol/L (22-29); Chloride 105 mmol/L (96-108); Creatinine Clr Calc Pharmacy 87.4; Estimated Glomerular Filt Rate > 60; Glucose Random 111 mg/dL (60-115); Lipase 6 U/L (8-78); Potassium 3.1 mmol/L (3.3-5.1); Sodium 140 mmol/L (135-145); Total Protein 6.7 g/dL (6.5-8.0)
[2023-07-03 14:30] LABS: Influenza A PCR NEGATIVE (Negative); Influenza B PCR NEGATIVE (Negative); Resp Syncy Virus RNA Qual PCR NEGATIVE (Negative); SARS COV2 PCR INHOUSE POSITIVE (Negative); Troponin-I High Sensitivity < 2.7 ng/L (<3.5-35.0)
--- NOTE | 2023-07-03 15:30 | MHC.EDTECH ---
Patient was given urine cup for sample ,and patient throw away cup ,stated he cant urinate .
[2023-07-03 16:06] LABS: Magnesium 1.4 mg/dL (1.6-2.6)
[2023-07-03 16:28] VITALS: BP 132/77; PULSE 55; RESP 20; TEMP 36.6; O2SAT 100
--- NOTE | 2023-07-03 16:30 | PC.NURSE ---
Pt reports diffuse abd pain and CP, states nausea vomiting with minimal diarrhea today. skin is sl pale, warm and dry. Afebrile. Sinus pablito on tele. Speaking full sentences. +COVID, precautions initiated. 22 g placed to left hand, awaits ED provider evaluation
[2023-07-03] MEDS: ondansetron HCL 4 MG/2 ML VIAL IVPUSH (18:05)
[2023-07-03] MEDS: Morphine Sulfate 4 MG/ML CARTRIDGE IVPUSH (18:06)
[2023-07-03] MEDS: Magnesium Sulfate/D5W 1 GM/100 ML PIGGYBACK IV (18:07)
[2023-07-03] MEDS: 0.9 % Sodium Chloride 1,000 ML 999 ML IV (18:09)
[2023-07-03] MEDS: Oseltamivir Phosphate 75 MG CAPSULE PO (20:15)
[2023-07-03 20:17] VITALS: BP 117/75; PULSE 56; RESP 16; TEMP 36.7
== END 2023-07-03 20:19 | disposition home or self-care (01) ==
PROVIDERS: Nurse Practitioner Family; Emergency Provider Emergency Medicine Emergency Medical Services; PCP Internal Medicine
DX: J10.1 Influenza due to other identified influenza virus with other respiratory manifestations (principal); R10.11 Right upper quadrant pain; R07.89 Other chest pain; E83.42 Hypomagnesemia; F10.10 Alcohol abuse, uncomplicated; Y90.9 Presence of alcohol in blood, level not specified; Z11.52 Encounter for screening for COVID-19; Z20.822 Contact with and (suspected) exposure to COVID-19; Z79.899 Other long term (current) drug therapy
CPT/HCPCS: 0241U; 80053; 83690; 83735; 84484; 85025; 93005; 96365; 96366; 96375; 99284; 99285; J2270; J2405; J3475

== ENCOUNTER → 2023-07-03 13:21 | Outpatient (BNV) | payer MEDICAID, SELFPAY | PROVIDERS: Emergency Provider Emergency Medicine Emergency Medical Services; PCP Internal Medicine; Visit Provider Internal Medicine Cardiovascular Disease | DX: R07.9 Chest pain, unspecified (principal) | CPT/HCPCS: 93010 ==

== ENCOUNTER 2023-07-07 10:00 | Outpatient (RCR) | payer MEDICAID, SELFPAY ==
--- NOTE | 2023-07-07 10:57 | MHC.PT.EP ---
[facility] [place] Office [place] Office [place] [facility] [address] [phone] F: [phone] F: [phone] F: [phone] F: [phone] Physical Therapy Plan of Care Date of Evaluation: 07/07/23 Date of Surgery: Diagnosis: LEFT knee osteoarthritis (MRI: [id number] medial compartment osteoarthritis with associated complex tear of the posterior horn and body of the medial meniscus.01/2023) Assessment: Patient is a 53 y.o. male who is referred to PT by Daiana Renee PA-C with Dx of LEFT knee osteoarthritis. On MRI 01/2023 the impression shows, [id number] medial compartment osteoarthritis with associated complex tear of the posterior horn and body of the medial meniscus. Patient impairments include chronic pain, c/o instability in knee, limited knee ROM, weakness in L knee and hip. Patient current functional limitations are walking, bending, stair use, prolonged standing. Patient will benefit from skilled PT to address aforementioned impairments and functional limitations to meet established goals. Frequency and Duration: The patient will be seen 1-2x/week for 4 weeks Short Term Goals: 2 weeks Patient demonstrates consistency and independence with HEP to self manage symptoms. Mcfp Goals: 4 weeks Patient presents with increased L knee flexion 120 degrees to be able to perform sit to stand from low chair. Patient presents with increased L knee quad strength 4+/5 to be able to perform reciprocal stairs (4 flights at home). Treatment Plan: Modalities to reduce pain, spasms and effusion. Manual therapy to restore motion and function. Therapeutic exercise to improve strength and flexibility. Neuromuscular re-education for posture and balance. Therapeutic activities to return to functional activities of daily living. Electronically signed by: Dolores Brush, PT, DPT Please sign and return to therapist. Thank you for your referral.
--- NOTE | 2023-09-01 15:52 | MHC.PT.DC ---
[facility] [place] Office [place] Office [place] Office [address] Jade Merrill 140 [facility] [phone] F: [phone] F: [phone] F: [phone] F: [phone] Physical Therapy Discharge Report Diagnosis: LEFT knee osteoarthritis (MRI: [id number] medial compartment osteoarthritis with associated complex tear of the posterior horn and body of the medial meniscus.01/2023) Date of Surgery: Date of Evaluation: 07/07/23 Date of Discharge: 09/01/23 Treatments to Date: 1 Cancellations to Date: 3 No Shows to Date: Discharge Status: Visit Non-compliance Discharge Summary: Jerson Taveras was only seen for PT initial evaluation and he did not attend any FUP visits. He is therefore discharged from PT for non compliance with attendance. Electronically signed by: Dolores Brush, PT, DPT Please sign and return to therapist. Thank you for your referral.
== END 2023-09-01 15:53 | disposition home or self-care (01) ==
LOC: HO.PT 10:00
PROVIDERS: PCP Internal Medicine; Visit Provider Physician Assistant
DX: M17.12 Unilateral primary osteoarthritis, left knee (principal)
CPT/HCPCS: 97110; 97161

== ENCOUNTER 2023-07-10 11:31 | Emergency (ER) | payer MEDICAID, SELFPAY ==
--- NOTE | 2023-07-10 | ECG_ITS ---
Test Reason : CP Blood Pressure : / mmHG Vent. Rate : 091 BPM Atrial Rate : 091 BPM P-R Int : 140 ms QRS Dur : 078 ms QT Int : 360 ms P-R-T Axes : 028 -02 032 degrees QTc Int : 442 ms Normal sinus rhythm Minimal voltage criteria for LVH, may be normal variant ( R in aVL ) Borderline ECG When compared with ECG of 03-JUL-2023 13:40, Vent. rate has increased BY 33 BPM Referred By: Generic ED Physician Electronically Signed By:MARIE LOCKWOOD MD
--- NOTE | 2023-07-10 11:39 | PC.NURSE ---
zofran 4mg IV given by EMS
[2023-07-10 11:59] VITALS: BP 107/71; PULSE 95; RESP 18; TEMP 36.8; O2SAT 97; BMI 24.5
--- NOTE | 2023-07-10 11:59 | ED_ITS ---
HPI - General Adult General Chief complaint: Abdominal Pain Stated complaint: CHEST PAIN NAUSEA DIZZINESS Time Seen by Provider: 07/10/23 16:11 Source: patient, EMS and state appellate clerk (all interactions with this patient were facilitated by an [facility] flyer repairer) Mode of arrival: EMS Limitations: language barrier (all interactions with this patient were facilitated by an [facility] flyer repairer) History of Present Illness HPI narrative: Patient is a 53 year old assigned male at with a history of bipolar disorder, alcohol abuse, and recent COVID-19 infection presenting to the emergency department today with chest pain and abdominal pain. Patient states that over the last few days he has had abdominal pain and chest pain with vomiting. Patient denies any dizziness, lightheadedness, vomiting, fever, chills, blurry vision, double vision, loss of vision, difficulty breathing, shortness of breath, back pain, night sweats, pain with urination, increased urinary frequency, increased urinary urgency, blood in his urine or stool, syncope or a near syncopal episode, recent trauma or falls, bowel incontinence, bladder incontinence, bowel retention, bladder retention, or any other complaints at this time. Onset (ago): day(s) Relieving factors: none Exacerbating factors: none Associated symptoms: chest pain and nausea/vomiting Treatments prior to arrival: none Related Data Home Medications ?Medication ?Instructions ?Recorded ?Confirmed hydroxyzine HCl 50 mg tablet 50 mg PO QID PRN anxiety 03/03/22 05/10/23 amitriptyline 100 mg tablet 125 mg PO BEDTIME 07/11/22 05/09/23 atenolol 25 mg tablet 25 mg PO DAILY 07/11/22 05/09/23 cholecalciferol (vitamin D3) 25 25 mcg PO DAILY 07/11/22 05/09/23 mcg (1,000 unit) tablet (Vitamin D3) clonidine HCl 0.2 mg tablet 0.2 mg PO TID 07/11/22 05/10/23 metformin 500 mg tablet,extended 500 mg PO DAILY 07/11/22 05/10/23 release 24 hr albuterol sulfate 90 mcg/actuation 2 puff inhalation Q4-6H PRN Dyspnea 05/09/23 05/09/23 aerosol inhaler (Ventolin HFA) zolpidem 12.5 mg tablet,extended 12.5 mg PO BEDTIME PRN insomnia 05/09/23 05/09/23 release,multiphase benztropine 0.5 mg tablet 0.5 mg PO BID 05/10/23 05/10/23 diphenhydramine HCl 25 mg tablet 50 mg PO BEDTIME 05/10/23 05/10/23 melatonin 5 mg tablet 10 mg PO BEDTIME 05/10/23 05/10/23 mirtazapine 45 mg tablet 45 mg PO BEDTIME 05/10/23 05/10/23 Previous Rx's ?Medication ?Instructions ?Recorded acetaminophen 500 mg tablet 1,000 mg (2 x 500 mg) PO QID PRN 03/23/23 pain #30 tabs acetaminophen 325 mg capsule 325 mg PO QID PRN pain 7 days #28 06/07/23 (Tylenol) caps omeprazole 20 mg capsule,delayed 20 mg PO DAILY 90 days #90 caps 06/18/23 release polyethylene glycol 3350 17 17 g PO BID PRN Constipation 90 06/18/23 gram/dose oral powder (ClearLax) days #510 grams sennosides 8.6 mg tablet (senna) 8.6 mg PO BEDTIME PRN Constipation 06/18/23 90 days #90 tabs ondansetron 4 mg disintegrating 4 mg PO Q6-8H PRN nausea and 06/20/23 tablet vomiting #10 tabs oseltamivir 75 mg capsule (Tamiflu) 75 mg PO Q12H 5 days #10 caps 07/03/23 Allergies Allergy/AdvReac Type Severity Reaction Status Date / Time trazodone [TRAZODONE] Allergy Severe FACIAL Verified 07/10/23 12:00 SWELLING, swelling cat dander [CATS] Allergy Intermediate FACIAL Verified 07/10/23 12:00 ITCHING doxepin [DOXEPIN] Allergy Intermediate WEIGHT Verified 07/10/23 12:00 GAIN/LEG SWELLING Iodinated Contrast Media Allergy Intermediate ITCHING Verified 07/10/23 12:00 [IV DYE, IODINE CONTAINING CONTRAST ] nitroglycerin [NITROGLYCERIN] Allergy Unknown UNKNOWN Verified 07/10/23 12:00 tramadol [TRAMADOL] Allergy Unknown UNKNOWN, Verified 07/10/23 12:00 dry mouth ibuprofen [From MOTRIN] AdvReac Intermediate GI UPSET Verified 07/10/23 12:00 quetiapine [From SEROQUEL] AdvReac Intermediate FACIAL Verified 07/10/23 12:00 SWELLING aspirin [ASPIRIN] AdvReac Mild Stomach Verified 07/10/23 12:00 Upset Ibuprofen Allergy Unknown stomach Uncoded 06/20/23 15:42 ache IV contrast Allergy Unknown Unknown Uncoded 06/20/23 15:42 Motrin Allergy Unknown stomach Uncoded 06/20/23 15:42 pain Review of Systems 2 Constitutional: Constitutional: Reports no additional constitutional complaints, Denies chills, Denies fever(s) and Denies night sweats Eyes: Eyes: Reports no additional eye complaints, Denies blurry vision, Denies change in vision, Denies diplopia, Denies eye discharge, Denies loss of vision and Denies eye pain ENT: Denies dizziness Cardiovascular: Cardiovascular: Reports no additional cardiovascular complaints, Reports chest pain, Denies lightheadedness, Denies Loss of Consciousness and Denies dyspnea Respiratory: Respiratory: Reports no additional respiratory complaints and Denies dyspnea Gastrointestinal: Gastrointestinal: Reports no additional gastrointestinal complaints, Reports abdominal pain, Denies melena, Denies hematochezia, Denies change in bowel habits, Denies change in stool character, Reports nausea and Reports vomiting Genitourinary: Genitourinary: Reports no additional male genitourinary complaints, Denies hematuria, Denies oliguria, Denies difficulty urinating, Denies dysuria, Denies urinary frequency, Denies urinary hesitancy, Denies urinary incontinence and Denies urinary urgency Musculoskeletal: Musculoskeletal: Reports no additional musculoskeletal complaints, Denies numbness and Denies tingling Neurologic: Denies dizziness, Denies loss of vision, Denies numbness and Denies tingling Psychiatric: Psychiatric: Reports no additional psychiatric complaints Endocrine: Endocrine: Reports no additional endocrine complaints Hematologic/Lymphatic: Hematologic/Lymphatic: Reports no additional hematologic/lymphatic complaints Allergic/Immunologic: Allergic/Immunologic: Reports no additional allergic/immunologic complaints PMF Past Medical History Attestation statement: The following information was validated with the patient. Source: old records reviewed and nursing notes reviewed 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 GERD (gastroesophageal reflux disease) Anxiety Surgical History History of colonoscopy History of cystoscopy H/O umbilical hernia repair Family History Family History Father HTN (hypertension) Diabetes Mother HTN (hypertension) Stroke Alzheimer disease Heart disease Social History Social History Household Members: None Housing: Apartment Do you presently have visiting nurse or other home services: Yes Alcohol intake: former Comment: 1:1 sitter Patient Tobacco Use Status: Current everyday Tobacco user Tobacco use type: Cigarette Cigarette Packs Per Day: 1 Cigarettes Per Day: 20.0 Years Smoked: 9 e-Cigarette/Vaping Use: Never Used Second Hand Smoke Exposure: Yes Substance Use Type: Heroin and Opiates Advance Directives: Yes Advance Directives on File: Yes Advance Directives Date on File: 02/14/20 service: No Current occupational status: unemployed and disabled Sexual orientation: Straight/Heterosexual Physical Exam ED Vital Signs: Vital Signs - 24 hr 07/10/23 11:59 Temperature 98.2 F Pulse Rate 95 Respiratory Rate 18 Blood Pressure 107/71 Pulse Oximetry 97 Oxygen Delivery Method Room Air BMI result Body Mass Index 24.5 Const General: cooperative, no acute distress, alert and awake Nutritional Appearance: well nourished Orientation/consciousness: patient oriented x3 Limitations: no limitations HENMT Head: Yes normal to inspection and Yes atraumatic Ears: hearing grossly normal bilaterally and external ears normal General nose exam: Normal external nose present, no nasal discharge noted and no epistaxis Face and sinus: Yes normal facial exam, No abrasion and No laceration Mouth: Normal oral and palatal mucosa present, no drooling and no muffled voice Eyes General: appearance normal, both eyes and all related structures Periorbital: periorbital findings normal Eyelids: Yes eyelids normal Conjunctivae: conjunctivae normal Pupils: Equal, round and reactive pupils present EOM: EOMs intact bilaterally Neck Neck: Yes normal visual inspection, Yes full ROM and Yes no lymphadenopathy Chest Chest palpation & inspection: normal inspection of the chest Resp Effort & Inspection: normal respiratory effort and able to speak in complete sentences GI Inspection: Yes normal to inspection Neuro General: patient oriented x3 and moves all extremities Cranial nerves: Yes Equal, round and reactive pupils present Cognition (Neuro): normal cognition Motor exam (neuro): 5/5 motor strength present throughout Sensory Exam: Normal double simultaneous stimulation for sensation Coordination: [id number] test normal Extrem General: Yes normal to inspection, Yes full ROM and Yes capillary refill normal Psych Appearance: grossly normal Mental Status: mental status grossly normal Affect: normal affect Attitude: cooperative Thought process: Normal thought process present Thought content: Normal thought content present Insight: Good insight present (Psych) Course Course Course Narrative: RME performed by Sade Resendiz PA-C. Patient is a 53 year old assigned male at presenting to the emergency department with nausea, vomiting, abd pain, and chest pain. Detailed physical exam and review of systems are deferred to the supervisor wash house. Labs and swabs ordered. Patient placed back in the waiting room pending room availability and results. Medical Decision Making Medical Decision Making [facility] Narrative: Patient is a 53 year old assigned male at with a history of alcohol abuse, bipolar disorder, and recent COVID-19 infection presenting to the emergency department today with chest pain, abdominal pain, and vomiting. Patient's limited physical exam performed in triage was unremarkable. Patient's blood work was showed a potassium of 3.1 which is chronic for the patient. The rest of the patient's blood work was unremarkable. Patient's EKG was unremarkable. Patient left the department without completing treatment. Patient left the department before myself or any of the other emergency department clinicians could explain to or review with the patient; physical exam findings, test results, need or lack there of for additional testing, need or lack there of to perform a procedure, need or lack there of for hospital admission / transfer, need or lack there of for prescription medication, treatment options, or a treatment plan. Patient's IV placed by EMS was removed before the patient left. Differential Diagnosis Differential Diagnoses: The differential diagnosis associated with the presentation includes Chest pain Abdominal pain Viral illness Admission/Observation Consideration of admission/observation: Escalation of care including admission/observation considered Patient would have been admitted to the hospital had he completed his work up and it had any findings where hospital admission was appropriate, his clinical presentation warranted hospital admission, had myself or any other emergency legal department manager had the ability to discuss need or lack there of for hospital admission, and the patient hadn't left the department without completing treatment. Lab Data [facility] Lab Attestation statement: I reviewed the patient's lab results. My interpretation of these results are in the [facility] Rationale portion of this note. 07/10/23 13:27 07/10/23 13:27 Labs: Lab Results 07/10/23 Range/Units 13:27 WBC 8.0 (4.8-10.8) X10*3/uL RBC 3.84 L (4.60-5.80) X10*6/uL Hgb 11.3 L (14.0-18.0) g/dl Hct 34.2 L (42.0-52.0) % MCV 89.1 (80.0-98.0) fL MCH 29.4 (27.0-33.0) pg MCHC 33.0 (31.0-36.0) g/dl RDW 15.1 (11.0-16.0) % Plt Count 285 D (160-400) X10*3/uL MPV 9.1 L (9.4-12.4) fL Immature Gran % (Auto) 0.2 (0.0-0.4) % Neut % (Auto) 56.6 (45-73) % Lymph % (Auto) 30.8 (20-40) % [place] % (Auto) 5.9 (2-11) % Eos % (Auto) 5.9 H (0-4) % Baso % (Auto) 0.6 (0-2) % Lymph # (Auto) 2.5 (1.2-4.9) X10*3/uL [place] # (Auto) 0.5 (0.1-1.2) X10*3/uL Eos # (Auto) 0.5 H (0.0-0.4) X10*3/uL Baso # (Auto) 0.1 (0.0-0.2) X10*3/uL Abs Immat Gran (auto) 0.02 (0.00-0.03) X10*3/uL Absolute Neuts (auto) 4.5 (2.0-8.3) x10*3/uL Absolute Nucleated RBC 0.000 (0.0-0.012) X10*3/uL Nucleated RBC % (auto) 0.0 (0.0-0.2) /100WBC Sodium 143 (135-145) mmol/L Potassium 3.1 L (3.3-5.1) mmol/L Chloride 103 (96-108) mmol/L Carbon Dioxide 33 H (22-29) mmol/L Anion Gap 10 L (12-20) BUN 4 L (9-16) mg/dL Creatinine 0.69 (0.5-1.4) mg/dL Estim Creat Clear Calc 105.2 Estimated GFR > 60 Random Glucose 103 (60-115) mg/dL Calcium 9.1 (8.4-10.2) mg/dL Magnesium 1.6 (1.6-2.6) mg/dL Total Bilirubin 0.4 (0.0-1.0) mg/dL AST 18 (5-37) U/L ALT 16 (0-40) U/L Alkaline Phosphatase 76 (39-117) U/L Troponin I High Sens < 2.7 (<3.5-35.0) ng/L Total Protein 6.7 (6.5-8.0) g/dL Albumin 3.5 (3.5-5.0) g/dL Influenza Type A (PCR) NEGATIVE (Negative) Influenza Type B (PCR) NEGATIVE (Negative) RSV RNA Qual (PCR) NEGATIVE (Negative) SARS-CoV-2 RNA (RT-PCR) NEGATIVE (Negative) Independent Interpretation I performed an independent interpretation of an: EKG Interpretation: Vent. Rate: 091 BPM Atrial Rate: 091 BPM P-R Int: 140 ms QRS Dur: 078 ms QT Int: 360 ms P-R-T Axes: 028 -02 032 degrees QTc Int: 442 ms Normal sinus rhythm Minimal voltage criteria for LVH, may be normal variant (R in aVL) Borderline ECG When compared with ECG of 03-JUL-2023 13:40, Vent. rate has increased BY 33 BPM Electronically Signed By:MARIE HUIZAR MD Dictated By: Marie Huizar MD Signed By: Electronically signed by Marie Huizar MD 07/10/23 [id number] Independent Historian Clinical information obtained from an independent historian. History obtained from or confirmed by: EMS (EMS provided additional history and confirmed the history provided by the patient.) Discharge Plan Discharge Clinical Impression: Abdominal pain, Chest pain Patient Disposition: Left W/O Completing Treatment Prescriptions: No Action sennosides [senna] 8.6 mg tablet 8.6 mg PO BEDTIME PRN (Reason: Constipation) 90 Days Qty: 90 1RF polyethylene glycol 3350 [ClearLax] 17 gram/dose powder 17 g PO BID PRN (Reason: Constipation) 90 Days Qty: 510 1RF omeprazole 20 mg capsule,delayed release(DR/EC) 20 mg PO DAILY 90 Days Qty: 90 1RF albuterol sulfate [Ventolin HFA] 90 mcg/actuation HFA aerosol inhaler 2 puff INHALATION Q4-6H PRN (Reason: Dyspnea) zolpidem 12.5 mg tablet,ext release multiphase 12.5 mg PO BEDTIME PRN (Reason: insomnia ) benztropine 0.5 mg tablet 0.5 mg PO BID diphenhydramine HCl 25 mg tablet 50 mg PO BEDTIME mirtazapine 45 mg tablet 45 mg PO BEDTIME melatonin 5 mg tablet 10 mg PO BEDTIME acetaminophen [Tylenol] 325 mg capsule 325 mg PO QID PRN (Reason: pain) 7 Days Qty: 28 0RF ondansetron 4 mg tablet,disintegrating 4 mg PO Q6-8H PRN (Reason: nausea and vomiting) Qty: 10 0RF oseltamivir [Tamiflu] 75 mg capsule 75 mg PO Q12H 5 Days Qty: 10 0RF metformin 500 mg Tablet Extended Release 24 Hr 500 mg PO DAILY atenolol 25 mg Tablet 25 mg PO DAILY amitriptyline 100 mg Tablet 125 mg PO BEDTIME cholecalciferol (vitamin D3) [Vitamin D3] 25 mcg (1,000 unit) Tablet 25 mcg PO DAILY clonidine HCl 0.2 mg Tablet 0.2 mg PO TID acetaminophen 500 mg tablet 1,000 mg PO QID PRN (Reason: pain) Qty: 30 0RF hydroxyzine HCl 50 mg tablet 50 mg PO QID PRN (Reason: anxiety) Discharge Date/Time: 07/10/23 16:24
[2023-07-10 13:31] LABS: MANUAL DIFF FLAG NO
[2023-07-10 13:34] LABS: Basophils Absolute Auto 0.1 X10*3/uL (0.0-0.2); Basophils Percent Auto 0.6 % (0-2); Eosinophils Absolute Auto 0.5 X10*3/uL (0.0-0.4); Eosinophils Percent Auto 5.9 % (0-4); Hematocrit 34.2 % (42.0-52.0); Hemoglobin 11.3 g/dl (14.0-18.0); Imm Gran Abs Auto 0.02 X10*3/uL (0.00-0.03); Imm Gran Pct Auto 0.2 % (0.0-0.4); Lymphocytes Absolute Auto 2.5 X10*3/uL (1.2-4.9); Lymphocytes Percent Auto 30.8 % (20-40); Mean Corpuscular Hemoglobin 29.4 pg (27.0-33.0); Mean Corpuscular Volume 89.1 fL (80.0-98.0); Mean Platelet Volume 9.1 fL (9.4-12.4); Monocytes Absolute Auto 0.5 X10*3/uL (0.1-1.2); Monocytes Percent Auto 5.9 % (2-11); Neutrophils Absolute Auto 4.5 x10*3/uL (2.0-8.3); Neutrophils Percent Auto 56.6 % (45-73); Platelet Count 285 X10*3/uL (160-400); Red Blood Count 3.84 X10*6/uL (4.60-5.80); Red Cell Distribution Width 15.1 % (11.0-16.0)
[2023-07-10 13:46] LABS: Alanine Aminotransferase 16 U/L (0-40); Albumin Level 3.5 g/dL (3.5-5.0); Alkaline Phosphatase 76 U/L (39-117); Anion Gap 10 (12-20); Aspartate Amino Transferase 18 U/L (5-37); Bilirubin Total 0.4 mg/dL (0.0-1.0); Blood Urea Nitrogen 4 mg/dL (9-16); Calcium 9.1 mg/dL (8.4-10.2); Carbon Dioxide 33 mmol/L (22-29); Chloride 103 mmol/L (96-108); Creatinine Clr Calc Pharmacy 105.2; Estimated Glomerular Filt Rate > 60; Glucose Random 103 mg/dL (60-115); Magnesium 1.6 mg/dL (1.6-2.6); Potassium 3.1 mmol/L (3.3-5.1); Sodium 143 mmol/L (135-145); Total Protein 6.7 g/dL (6.5-8.0)
[2023-07-10 13:56] LABS: Troponin-I High Sensitivity < 2.7 ng/L (<3.5-35.0)
[2023-07-10 14:14] LABS: Influenza A PCR NEGATIVE (Negative); Influenza B PCR NEGATIVE (Negative); Resp Syncy Virus RNA Qual PCR NEGATIVE (Negative); SARS COV2 PCR INHOUSE NEGATIVE (Negative)
--- NOTE | 2023-07-10 16:18 | PC.NURSE ---
IV ACCESS WAS REMOVED -LWCT
== END 2023-07-10 16:24 | disposition left against medical advice (07) ==
PROVIDERS: Physician Assistant Medical; Emergency Provider Emergency Medicine; PCP Internal Medicine
DX: R07.9 Chest pain, unspecified (principal); R10.9 Unspecified abdominal pain
CPT/HCPCS: 0241U; 80053; 83735; 84484; 85025; 93005; 99283

== ENCOUNTER → 2023-07-10 11:44 | Outpatient (BNV) | payer MEDICAID, SELFPAY | PROVIDERS: PCP Internal Medicine; Visit Provider Internal Medicine Cardiovascular Disease | DX: R07.9 Chest pain, unspecified (principal) | CPT/HCPCS: 93010 ==

== ENCOUNTER 2023-07-12 12:05 | Emergency (ER) | payer MEDICAID, SELFPAY ==
[2023-07-12 12:11] VITALS: BP 177/74; PULSE 69; RESP 18; TEMP 36.3; O2SAT 100; BMI 24.8
--- NOTE | 2023-07-12 12:14 | ED.GENADULT ---
HPI - General Adult General Chief complaint: Abdominal Pain Stated complaint: Genital pain/Back pain History of Present Illness HPI narrative: Left without completing treatment Related Data Home Medications ?Medication ?Instructions ?Recorded ?Confirmed hydroxyzine HCl 50 mg tablet 50 mg PO QID PRN anxiety 03/03/22 05/10/23 amitriptyline 100 mg tablet 125 mg PO BEDTIME 07/11/22 05/09/23 atenolol 25 mg tablet 25 mg PO DAILY 07/11/22 05/09/23 cholecalciferol (vitamin D3) 25 25 mcg PO DAILY 07/11/22 05/09/23 mcg (1,000 unit) tablet (Vitamin D3) clonidine HCl 0.2 mg tablet 0.2 mg PO TID 07/11/22 05/10/23 metformin 500 mg tablet,extended 500 mg PO DAILY 07/11/22 05/10/23 release 24 hr albuterol sulfate 90 mcg/actuation 2 puff inhalation Q4-6H PRN Dyspnea 05/09/23 05/09/23 aerosol inhaler (Ventolin HFA) zolpidem 12.5 mg tablet,extended 12.5 mg PO BEDTIME PRN insomnia 05/09/23 05/09/23 release,multiphase benztropine 0.5 mg tablet 0.5 mg PO BID 05/10/23 05/10/23 diphenhydramine HCl 25 mg tablet 50 mg PO BEDTIME 05/10/23 05/10/23 melatonin 5 mg tablet 10 mg PO BEDTIME 05/10/23 05/10/23 mirtazapine 45 mg tablet 45 mg PO BEDTIME 05/10/23 05/10/23 Previous Rx's ?Medication ?Instructions ?Recorded acetaminophen 500 mg tablet 1,000 mg (2 x 500 mg) PO QID PRN 03/23/23 pain #30 tabs acetaminophen 325 mg capsule 325 mg PO QID PRN pain 7 days #28 06/07/23 (Tylenol) caps omeprazole 20 mg capsule,delayed 20 mg PO DAILY 90 days #90 caps 06/18/23 release polyethylene glycol 3350 17 17 g PO BID PRN Constipation 90 06/18/23 gram/dose oral powder (ClearLax) days #510 grams sennosides 8.6 mg tablet (senna) 8.6 mg PO BEDTIME PRN Constipation 06/18/23 90 days #90 tabs ondansetron 4 mg disintegrating 4 mg PO Q6-8H PRN nausea and 06/20/23 tablet vomiting #10 tabs oseltamivir 75 mg capsule (Tamiflu) 75 mg PO Q12H 5 days #10 caps 07/03/23 Allergies Allergy/AdvReac Type Severity Reaction Status Date / Time trazodone [TRAZODONE] Allergy Severe FACIAL Verified 07/12/23 12:13 SWELLING, swelling cat dander [CATS] Allergy Intermediate FACIAL Verified 07/12/23 12:13 ITCHING doxepin [DOXEPIN] Allergy Intermediate WEIGHT Verified 07/12/23 12:13 GAIN/LEG SWELLING Iodinated Contrast Media Allergy Intermediate ITCHING Verified 07/12/23 12:13 [IV DYE, IODINE CONTAINING CONTRAST ] nitroglycerin [NITROGLYCERIN] Allergy Unknown UNKNOWN Verified 07/12/23 12:13 tramadol [TRAMADOL] Allergy Unknown UNKNOWN, Verified 07/12/23 12:13 dry mouth ibuprofen [From MOTRIN] AdvReac Intermediate GI UPSET Verified 07/12/23 12:13 quetiapine [From SEROQUEL] AdvReac Intermediate FACIAL Verified 07/12/23 12:13 SWELLING aspirin [ASPIRIN] AdvReac Mild Stomach Verified 07/12/23 12:13 Upset Ibuprofen Allergy Unknown stomach Uncoded 06/20/23 15:42 ache IV contrast Allergy Unknown Unknown Uncoded 06/20/23 15:42 Motrin Allergy Unknown stomach Uncoded 06/20/23 15:42 pain PMFSH Past Medical History 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 GERD (gastroesophageal reflux disease) Anxiety Surgical History History of colonoscopy History of cystoscopy H/O umbilical hernia repair Family History Family History Father HTN (hypertension) Diabetes Mother HTN (hypertension) Stroke Alzheimer disease Heart disease Social History Social History Household Members: None Housing: Apartment Do you presently have visiting nurse or other home services: Yes Alcohol intake: former Comment: 1:1 sitter Patient Tobacco Use Status: Current everyday Tobacco user Tobacco use type: Cigarette Cigarette Packs Per Day: 1 Cigarettes Per Day: 20.0 Years Smoked: 9 e-Cigarette/Vaping Use: Never Used Second Hand Smoke Exposure: Yes Substance Use Type: Heroin and Opiates Advance Directives: Yes Advance Directives on File: Yes Advance Directives Date on File: 02/14/20 service: No Current occupational status: unemployed and disabled Sexual orientation: Straight/Heterosexual Physical Exam ED Vital Signs: Vital Signs - 24 hr 07/12/23 12:11 Temperature 97.3 F Pulse Rate 69 Respiratory Rate 18 Blood Pressure 177/74 H Pulse Oximetry 100 Oxygen Delivery Method Room Air BMI result Body Mass Index 24.8 Course Course Course Narrative: RME: 53 yold male presents to the ED for penile pain, dysuria, and back pain today. Patient states no testicular pain, penile discharge, or penile lesions. Medical Decision Making Lab Data 07/12/23 13:02 07/12/23 13:02 Labs: Lab Results 07/12/23 Range/Units 13:02 WBC 8.8 (4.8-10.8) X10*3/uL RBC 3.85 L (4.60-5.80) X10*6/uL Hgb 11.4 L (14.0-18.0) g/dl Hct 34.4 L (42.0-52.0) % MCV 89.4 (80.0-98.0) fL MCH 29.6 (27.0-33.0) pg MCHC 33.1 (31.0-36.0) g/dl RDW 15.1 (11.0-16.0) % Plt Count 269 (160-400) X10*3/uL MPV 9.1 L (9.4-12.4) fL Immature Gran % (Auto) 0.2 (0.0-0.4) % Neut % (Auto) 70.9 (45-73) % Lymph % (Auto) 19.6 L (20-40) % [place] % (Auto) 5.3 (2-11) % Eos % (Auto) 3.5 (0-4) % Baso % (Auto) 0.5 (0-2) % Lymph # (Auto) 1.7 (1.2-4.9) X10*3/uL [place] # (Auto) 0.5 (0.1-1.2) X10*3/uL Eos # (Auto) 0.3 (0.0-0.4) X10*3/uL Baso # (Auto) 0.0 (0.0-0.2) X10*3/uL Abs Immat Gran (auto) 0.02 (0.00-0.03) X10*3/uL Absolute Neuts (auto) 6.3 (2.0-8.3) x10*3/uL Absolute Nucleated RBC 0.000 (0.0-0.012) X10*3/uL Nucleated RBC % (auto) 0.0 (0.0-0.2) /100WBC Sodium 143 (135-145) mmol/L Potassium 3.4 (3.3-5.1) mmol/L Chloride 103 (96-108) mmol/L Carbon Dioxide 31 H (22-29) mmol/L Anion Gap 12 (12-20) BUN 4 L (9-16) mg/dL Creatinine 0.74 (0.5-1.4) mg/dL Estim Creat Clear Calc 98.1 Estimated GFR > 60 Random Glucose 103 (60-115) mg/dL Calcium 9.2 (8.4-10.2) mg/dL Total Bilirubin 0.2 (0.0-1.0) mg/dL AST 18 (5-37) U/L ALT 14 (0-40) U/L Alkaline Phosphatase 70 (39-117) U/L Total Protein 6.7 (6.5-8.0) g/dL Albumin 3.4 L (3.5-5.0) g/dL Discharge Plan Discharge Clinical Impression: Abdominal pain Patient Disposition: Left W/O Completing Treatment Prescriptions: No Action sennosides [senna] 8.6 mg tablet 8.6 mg PO BEDTIME PRN (Reason: Constipation) 90 Days Qty: 90 1RF polyethylene glycol 3350 [ClearLax] 17 gram/dose powder 17 g PO BID PRN (Reason: Constipation) 90 Days Qty: 510 1RF omeprazole 20 mg capsule,delayed release(DR/EC) 20 mg PO DAILY 90 Days Qty: 90 1RF albuterol sulfate [Ventolin HFA] 90 mcg/actuation HFA aerosol inhaler 2 puff INHALATION Q4-6H PRN (Reason: Dyspnea) zolpidem 12.5 mg tablet,ext release multiphase 12.5 mg PO BEDTIME PRN (Reason: insomnia ) benztropine 0.5 mg tablet 0.5 mg PO BID diphenhydramine HCl 25 mg tablet 50 mg PO BEDTIME mirtazapine 45 mg tablet 45 mg PO BEDTIME melatonin 5 mg tablet 10 mg PO BEDTIME acetaminophen [Tylenol] 325 mg capsule 325 mg PO QID PRN (Reason: pain) 7 Days Qty: 28 0RF ondansetron 4 mg tablet,disintegrating 4 mg PO Q6-8H PRN (Reason: nausea and vomiting) Qty: 10 0RF oseltamivir [Tamiflu] 75 mg capsule 75 mg PO Q12H 5 Days Qty: 10 0RF metformin 500 mg Tablet Extended Release 24 Hr 500 mg PO DAILY atenolol 25 mg Tablet 25 mg PO DAILY amitriptyline 100 mg Tablet 125 mg PO BEDTIME cholecalciferol (vitamin D3) [Vitamin D3] 25 mcg (1,000 unit) Tablet 25 mcg PO DAILY clonidine HCl 0.2 mg Tablet 0.2 mg PO TID acetaminophen 500 mg tablet 1,000 mg PO QID PRN (Reason: pain) Qty: 30 0RF hydroxyzine HCl 50 mg tablet 50 mg PO QID PRN (Reason: anxiety) Interventions: LWBS Worksheet Last Done: 07/12/23 16:39 Discharge Date/Time: 07/12/23 16:39
[2023-07-12 13:05] LABS: MANUAL DIFF FLAG NO
[2023-07-12 13:08] LABS: Basophils Percent Auto 0.5 % (0-2); Eosinophils Absolute Auto 0.3 X10*3/uL (0.0-0.4); Eosinophils Percent Auto 3.5 % (0-4); Hematocrit 34.4 % (42.0-52.0); Hemoglobin 11.4 g/dl (14.0-18.0); Imm Gran Abs Auto 0.02 X10*3/uL (0.00-0.03); Imm Gran Pct Auto 0.2 % (0.0-0.4); Lymphocytes Absolute Auto 1.7 X10*3/uL (1.2-4.9); Lymphocytes Percent Auto 19.6 % (20-40); Mean Corpuscular HGB Conc 33.1 g/dl (31.0-36.0); Mean Corpuscular Hemoglobin 29.6 pg (27.0-33.0); Mean Corpuscular Volume 89.4 fL (80.0-98.0); Mean Platelet Volume 9.1 fL (9.4-12.4); Monocytes Absolute Auto 0.5 X10*3/uL (0.1-1.2); Monocytes Percent Auto 5.3 % (2-11); Neutrophils Absolute Auto 6.3 x10*3/uL (2.0-8.3); Neutrophils Percent Auto 70.9 % (45-73); Platelet Count 269 X10*3/uL (160-400); Red Blood Count 3.85 X10*6/uL (4.60-5.80); Red Cell Distribution Width 15.1 % (11.0-16.0); White Blood Count 8.8 X10*3/uL (4.8-10.8)
[2023-07-12 13:27] LABS: Alanine Aminotransferase 14 U/L (0-40); Albumin Level 3.4 g/dL (3.5-5.0); Alkaline Phosphatase 70 U/L (39-117); Anion Gap 12 (12-20); Aspartate Amino Transferase 18 U/L (5-37); Bilirubin Total 0.2 mg/dL (0.0-1.0); Blood Urea Nitrogen 4 mg/dL (9-16); Calcium 9.2 mg/dL (8.4-10.2); Carbon Dioxide 31 mmol/L (22-29); Chloride 103 mmol/L (96-108); Creatinine Clr Calc Pharmacy 98.1; Estimated Glomerular Filt Rate > 60; Glucose Random 103 mg/dL (60-115); Potassium 3.4 mmol/L (3.3-5.1); Sodium 143 mmol/L (135-145); Total Protein 6.7 g/dL (6.5-8.0)
== END 2023-07-12 16:39 | disposition left against medical advice (07) ==
PROVIDERS: Physician Assistant; Emergency Provider Emergency Medicine; PCP Internal Medicine
DX: M54.50 Low back pain, unspecified (principal); N48.89 Other specified disorders of penis; F17.200 Nicotine dependence, unspecified, uncomplicated; Z79.899 Other long term (current) drug therapy
CPT/HCPCS: 36415; 80053; 85025; 99281; 99283

== ENCOUNTER 2023-07-13 17:07 | Emergency (ER) | payer MEDICAID, SELFPAY ==
--- NOTE | 2023-07-13 | ECG_ITS ---
Test Reason : chest pain Blood Pressure : / mmHG Vent. Rate : 064 BPM Atrial Rate : 064 BPM P-R Int : 138 ms QRS Dur : 086 ms QT Int : 398 ms P-R-T Axes : 018 -05 009 degrees QTc Int : 410 ms Normal sinus rhythm Minimal voltage criteria for LVH, may be normal variant ( R in aVL ) Borderline ECG When compared with ECG of 10-JUL-2023 11:44, Nonspecific T wave abnormality no longer evident in Lateral leads Referred By: Generic ED Physician Electronically Signed By:Scottie Figueroa
--- NOTE | ~2023-07-13 | XR_ITS ---
EXAMINATION: XR CHEST CLINICAL INFORMATION: Chest pain COMPARISON: Chest x-ray on 07/01/2023 TECHNIQUE: Frontal view of the chest was obtained. FINDINGS: The cardiac silhouette is normal. There is mild diffuse bronchial wall thickening. There are no areas of consolidation. There are no pleural effusions or pneumothoraces. The bones and soft tissues are unremarkable for the patient's age. XR/XR chest 1V IMPRESSION: Bronchial wall thickening may be infectious and/or inflammatory in etiology.
[2023-07-13 17:24] VITALS: BP 111/66; PULSE 70; RESP 20; TEMP 36.4; O2SAT 99; BMI 25.0
--- NOTE | 2023-07-13 17:27 | ED_ITS ---
HPI - Chest Pain General Chief Complaint: Chest Pain Stated Complaint: CP x 1 week Time Seen by Provider: 07/13/23 20:18 Source: patient, RN notes reviewed, old records reviewed and orthopedics nurse Mode of arrival: EMS Limitations: language barrier History of Present Illness HPI narrative: 53-year-old male past medical history significant for GERD, this, depression, bipolar disorder, alcohol abuse presents for evaluation of chest pain. Patient reports to triage nurses here for chest pain, shortness of breath, nausea for a few days He reports his chief complaint to me as ?bladder pain. ? 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 He denies any fevers, chills He has no other complaints or concerns at this time Related Data Home Medications ?Medication ?Instructions ?Recorded ?Confirmed hydroxyzine HCl 50 mg tablet 50 mg PO QID PRN anxiety 03/03/22 05/10/23 amitriptyline 100 mg tablet 125 mg PO BEDTIME 07/11/22 05/09/23 atenolol 25 mg tablet 25 mg PO DAILY 07/11/22 05/09/23 cholecalciferol (vitamin D3) 25 25 mcg PO DAILY 07/11/22 05/09/23 mcg (1,000 unit) tablet (Vitamin D3) clonidine HCl 0.2 mg tablet 0.2 mg PO TID 07/11/22 05/10/23 metformin 500 mg tablet,extended 500 mg PO DAILY 07/11/22 05/10/23 release 24 hr albuterol sulfate 90 mcg/actuation 2 puff inhalation Q4-6H PRN Dyspnea 05/09/23 05/09/23 aerosol inhaler (Ventolin HFA) zolpidem 12.5 mg tablet,extended 12.5 mg PO BEDTIME PRN insomnia 05/09/23 05/09/23 release,multiphase benztropine 0.5 mg tablet 0.5 mg PO BID 05/10/23 05/10/23 diphenhydramine HCl 25 mg tablet 50 mg PO BEDTIME 05/10/23 05/10/23 melatonin 5 mg tablet 10 mg PO BEDTIME 05/10/23 05/10/23 mirtazapine 45 mg tablet 45 mg PO BEDTIME 05/10/23 05/10/23 Previous Rx's ?Medication ?Instructions ?Recorded acetaminophen 500 mg tablet 1,000 mg (2 x 500 mg) PO QID PRN 03/23/23 pain #30 tabs acetaminophen 325 mg capsule 325 mg PO QID PRN pain 7 days #28 06/07/23 (Tylenol) caps omeprazole 20 mg capsule,delayed 20 mg PO DAILY 90 days #90 caps 06/18/23 release polyethylene glycol 3350 17 17 g PO BID PRN Constipation 90 06/18/23 gram/dose oral powder (ClearLax) days #510 grams sennosides 8.6 mg tablet (senna) 8.6 mg PO BEDTIME PRN Constipation 06/18/23 90 days #90 tabs ondansetron 4 mg disintegrating 4 mg PO Q6-8H PRN nausea and 06/20/23 tablet vomiting #10 tabs oseltamivir 75 mg capsule (Tamiflu) 75 mg PO Q12H 5 days #10 caps 07/03/23 azithromycin 250 mg tablet See Rx Instructions PO .COMPLEX #6 07/13/23 tabs Allergies Allergy/AdvReac Type Severity Reaction Status Date / Time trazodone [TRAZODONE] Allergy Severe FACIAL Verified 07/13/23 17:25 SWELLING, swelling cat dander [CATS] Allergy Intermediate FACIAL Verified 07/13/23 17:25 ITCHING doxepin [DOXEPIN] Allergy Intermediate WEIGHT Verified 07/13/23 17:25 GAIN/LEG SWELLING Iodinated Contrast Media Allergy Intermediate ITCHING Verified 07/13/23 17:25 [IV DYE, IODINE CONTAINING CONTRAST ] nitroglycerin [NITROGLYCERIN] Allergy Unknown UNKNOWN Verified 07/13/23 17:25 tramadol [TRAMADOL] Allergy Unknown UNKNOWN, Verified 07/13/23 17:25 dry mouth ibuprofen [From MOTRIN] AdvReac Intermediate GI UPSET Verified 07/13/23 17:25 quetiapine [From SEROQUEL] AdvReac Intermediate FACIAL Verified 07/13/23 17:25 SWELLING aspirin [ASPIRIN] AdvReac Mild Stomach Verified 07/13/23 17:25 Upset Ibuprofen Allergy Unknown stomach Uncoded 06/20/23 15:42 ache IV contrast Allergy Unknown Unknown Uncoded 06/20/23 15:42 Motrin Allergy Unknown stomach Uncoded 06/20/23 15:42 pain Review of Systems 2 Constitutional: Constitutional: Denies body ache(s), Denies chills and Denies fever(s) Eyes: Eyes: Denies blurry vision ENT: Denies sore throat Cardiovascular: Cardiovascular: Reports chest pain and Reports dyspnea Respiratory: Respiratory: Reports cough and Reports dyspnea Gastrointestinal: Gastrointestinal: Reports abdominal pain, Denies nausea and Denies vomiting Musculoskeletal: Musculoskeletal: Denies back pain Integumentary/Breasts: Skin/Breast: Denies rash PMFSH Past Medical History 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 GERD (gastroesophageal reflux disease) Anxiety Surgical History History of colonoscopy History of cystoscopy H/O umbilical hernia repair Family History Family History Father HTN (hypertension) Diabetes Mother HTN (hypertension) Stroke Alzheimer disease Heart disease Social History Social History Household Members: None Housing: Apartment Do you presently have visiting nurse or other home services: Yes Alcohol intake: former 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: 1:1 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 Patient Tobacco Use Status: Current everyday Tobacco user Tobacco use type: Cigarette Cigarette Packs Per Day: 1 Cigarettes Per Day: 20.0 Years Smoked: 9 Smoked in Last 30 Days: Yes e-Cigarette/Vaping Use: Never Used Second Hand Smoke Exposure: Yes Use of substances other than those prescribed or required for medical reasons: Yes Substance Use Type: Heroin and Opiates Advance Directives: Yes Advance Directives on File: Yes Advance Directives Date on File: 02/14/20 service: No Current occupational status: unemployed and disabled Sexual orientation: Straight/Heterosexual Physical Exam 2 Vital Signs: Vital Signs: Last Vital Signs Temp 97.9 F 07/13/23 22:02 Pulse 67 07/13/23 22:02 Resp 16 07/13/23 22:02 BP 106/64 07/13/23 22:02 Pulse Ox 97 07/13/23 22:02 O2 Del Method Room Air 07/13/23 22:02 BMI result Body Mass Index 25.0 Const: General: healthy appearing, comfortable, no acute distress, alert and awake Nutritional Appearance: well nourished Orientation/consciousness: p atient oriented x3 HEENT: Head: Yes normocephalic and Yes atraumatic Eyes: Eyelids: Yes eyelids normal Conjunctivae: conjunctivae normal S clerae: sclerae normal Corneas: corneas normal Pupils: Equal, round and reactive pupils present EOM: EOMs intact bilaterally Neck: Neck: Yes full ROM Resp: Effort & Inspection: normal respiratory effort, able to speak in complete sentences, no audible wheezes and not labored Auscultation: clear to auscultation bilaterally Cardio: Rate: regular rate Rhythm: regular rhythm GI: Inspection: No distended Palpation (GI): Soft to palpation, not firm, nontender, no guarding and not rigid Skin: General skin exam: elasticity normal Neuro: General: patient oriented x3 Cranial nerves: Yes Equal, round and reactive pupils present and Yes Bilaterally intact EOM present Cognition (Neuro): normal cognition Course Course Course Narrative: RME: 53-year-old male presents to ED for chest pain nausea abdominal pain chronic. Labs EKG ordered. Reevaluation(s) Reevaluation #1: Patient's UA shows no evidence of infection, he will be discharged with azithromycin for acute bronchitis Time: 21:43 Medical Decision Making Medical Decision Making [facility] Narrative: 53-year-old male with past medical history documented above who was 1 oz emergency department presents for evaluation of chest pain and shortness of breath. Labs show a mild anemia consistent his baseline likely related to alcoholic use disorder, no leukocytosis. His electrolytes are significant for a chloride of 31, anion gap of 10, BUN 6. There is also low protein and albumin of 6.3 and 3.3 respectively, this may also be related to alcohol abuse. The rest of the chemistries and electrolytes are within normal limits. The patient's LFTs are also within normal limits. Sinus rhythm with a rate of 64 beats minute. There were no ST segment elevations or depressions. Patient's chest x-ray shows bronchial inflammation select bronchitis as the patient complains of shortness of breath and chest pain. Plan for UA to evaluate for UTI Differential Diagnosis Differential Diagnoses: The differential diagnosis associated with the presentation includes Chest pain ACS Bronchitis UTI Malingering Alcohol abuse Lab Data MDM Lab Attestation statement: I reviewed the patient's lab results. See above 07/13/23 19:04 07/13/23 19:04 Labs: Lab Results 07/13/23 07/13/23 Range/Units 19:04 21:21 WBC 8.4 (4.8-10.8) X10*3/uL RBC 3.59 L (4.60-5.80) X10*6/uL Hgb 10.5 L (14.0-18.0) g/dl Hct 32.8 L (42.0-52.0) % MCV 91.4 (80.0-98.0) fL MCH 29.2 (27.0-33.0) pg MCHC 32.0 (31.0-36.0) g/dl RDW 15.4 (11.0-16.0) % Plt Count 265 (160-400) X10*3/uL MPV 9.0 L (9.4-12.4) fL Immature Gran % (Auto) 0.4 (0.0-0.4) % Neut % (Auto) 55.3 (45-73) % Lymph % (Auto) 31.5 (20-40) % Stanley % (Auto) 6.8 (2-11) % Eos % (Auto) 5.5 H (0-4) % Baso % (Auto) 0.5 (0-2) % Lymph # (Auto) 2.7 (1.2-4.9) X10*3/uL Stanley # (Auto) 0.6 (0.1-1.2) X10*3/uL Eos # (Auto) 0.5 H (0.0-0.4) X10*3/uL Baso # (Auto) 0.0 (0.0-0.2) X10*3/uL Abs Immat Gran (auto) 0.03 (0.00-0.03) X10*3/uL Absolute Neuts (auto) 4.7 (2.0-8.3) x10*3/uL Absolute Nucleated RBC 0.000 (0.0-0.012) X10*3/uL Nucleated RBC % (auto) 0.0 (0.0-0.2) /100WBC PT 11.3 (11.1-13.3) SEC INR 0.9 (0.9-1.1) APTT 26.3 (26.0-36.8) SEC Sodium 143 (135-145) mmol/L Potassium 3.7 (3.3-5.1) mmol/L Chloride 106 (96-108) mmol/L Carbon Dioxide 31 H (22-29) mmol/L Anion Gap 10 L (12-20) BUN 6 L (9-16) mg/dL Creatinine 0.73 (0.5-1.4) mg/dL Estim Creat Clear Calc 99.4 Estimated GFR > 60 Random Glucose 94 (60-115) mg/dL Calcium 8.8 (8.4-10.2) mg/dL Total Bilirubin 0.1 (0.0-1.0) mg/dL AST 17 (5-37) U/L ALT 15 (0-40) U/L Alkaline Phosphatase 65 (39-117) U/L Troponin I High Sens < 2.7 (<3.5-35.0) ng/L Total Protein 6.3 L (6.5-8.0) g/dL Albumin 3.3 L (3.5-5.0) g/dL Lipase 10 (8-78) U/L Urine Color Yellow Urine Appearance Clear Urine pH 6.5 (5.0-9.0) Ur Specific Spencer 1.015 (1.005-1.025) Urine Protein Negative (Neg-Trace) mg/dL Urine Glucose (UA) Negative (Negative) mg/dL Urine Ketones Negative (Negative) mg/dL Urine Blood Negative (Negative) Urine Nitrite Negative (Negative) Ur Leukocyte Esterase Negative (Negative) Urine RBC 0-2 (0-2) /HPF Urine WBC 0-5 (0-5) /HPF Ur Squamous Epith Cells 0-2 (0-2) /HPF Urine Bacteria None Seen (None Seen) Hyaline Casts 0-2 (0-2) /LPF Independent Interpretation I performed an independent interpretation of an: EKG (See above) and Plain X-Ray (Agree with Radiology interpretation. Bronchial wall thickening without focal infiltrates) Radiology Impression Discussion of test interpretation with radiology: I have reviewed the radiologist's reading. Radiologist Impression: Bronchial wall thickening may be infectious and/or inflammatory in etiology. Discharge Plan Discharge Clinical Impression: Acute bronchitis Patient Disposition: Home, Self-Care Instructions: Acute Bronchitis (ED) Additional Instructions: Take azithromycin as directed for bronchitis. Your urine sample did not show any sign of infection Your blood work was reassuring Follow-up with your primary doctor Prescriptions: New azithromycin 250 mg tablet See Rx Instructions .ROUTE .COMPLEX Qty: 6 0RF Rx Instructions: For 250 mg dose pack: take 500 mg today (day 1), then 250 mg for 4 days (days 2-5) No Action sennosides [senna] 8.6 mg tablet 8.6 mg PO BEDTIME PRN (Reason: Constipation) 90 Days Qty: 90 1RF polyethylene glycol 3350 [ClearLax] 17 gram/dose powder 17 g PO BID PRN (Reason: Constipation) 90 Days Qty: 510 1RF omeprazole 20 mg capsule,delayed release(DR/EC) 20 mg PO DAILY 90 Days Qty: 90 1RF albuterol sulfate [Ventolin HFA] 90 mcg/actuation HFA aerosol inhaler 2 puff INHALATION Q4-6H PRN (Reason: Dyspnea) zolpidem 12.5 mg tablet,ext release multiphase 12.5 mg PO BEDTIME PRN (Reason: insomnia ) benztropine 0.5 mg tablet 0.5 mg PO BID diphenhydramine HCl 25 mg tablet 50 mg PO BEDTIME mirtazapine 45 mg tablet 45 mg PO BEDTIME melatonin 5 mg tablet 10 mg PO BEDTIME acetaminophen [Tylenol] 325 mg capsule 325 mg PO QID PRN (Reason: pain) 7 Days Qty: 28 0RF ondansetron 4 mg tablet,disintegrating 4 mg PO Q6-8H PRN (Reason: nausea and vomiting) Qty: 10 0RF oseltamivir [Tamiflu] 75 mg capsule 75 mg PO Q12H 5 Days Qty: 10 0RF metformin 500 mg Tablet Extended Release 24 Hr 500 mg PO DAILY atenolol 25 mg Tablet 25 mg PO DAILY amitriptyline 100 mg Tablet 125 mg PO BEDTIME cholecalciferol (vitamin D3) [Vitamin D3] 25 mcg (1,000 unit) Tablet 25 mcg PO DAILY clonidine HCl 0.2 mg Tablet 0.2 mg PO TID acetaminophen 500 mg tablet 1,000 mg PO QID PRN (Reason: pain) Qty: 30 0RF hydroxyzine HCl 50 mg tablet 50 mg PO QID PRN (Reason: anxiety) Interventions: ED Discharge Assessment Last Done: 07/13/23 22:02 Discharge Date/Time: 07/13/23 22:04 Print Language: Pakistani
[2023-07-13 19:08] LABS: MANUAL DIFF FLAG NO
[2023-07-13 19:09] LABS: Basophils Percent Auto 0.5 % (0-2); Eosinophils Absolute Auto 0.5 X10*3/uL (0.0-0.4); Eosinophils Percent Auto 5.5 % (0-4); Hematocrit 32.8 % (42.0-52.0); Hemoglobin 10.5 g/dl (14.0-18.0); Imm Gran Abs Auto 0.03 X10*3/uL (0.00-0.03); Imm Gran Pct Auto 0.4 % (0.0-0.4); Lymphocytes Absolute Auto 2.7 X10*3/uL (1.2-4.9); Lymphocytes Percent Auto 31.5 % (20-40); Mean Corpuscular Hemoglobin 29.2 pg (27.0-33.0); Mean Corpuscular Volume 91.4 fL (80.0-98.0); Monocytes Absolute Auto 0.6 X10*3/uL (0.1-1.2); Monocytes Percent Auto 6.8 % (2-11); Neutrophils Absolute Auto 4.7 x10*3/uL (2.0-8.3); Neutrophils Percent Auto 55.3 % (45-73); Platelet Count 265 X10*3/uL (160-400); Red Blood Count 3.59 X10*6/uL (4.60-5.80); Red Cell Distribution Width 15.4 % (11.0-16.0); White Blood Count 8.4 X10*3/uL (4.8-10.8)
[2023-07-13 19:17] LABS: INTERNATIONAL NORM RATIO 0.9 (0.9-1.1); Prothrombin Time 11.3 SEC (11.1-13.3)
[2023-07-13 19:20] LABS: Partial Thromboplastin Time 26.3 SEC (26.0-36.8)
[2023-07-13 19:24] LABS: Alanine Aminotransferase 15 U/L (0-40); Albumin Level 3.3 g/dL (3.5-5.0); Alkaline Phosphatase 65 U/L (39-117); Anion Gap 10 (12-20); Aspartate Amino Transferase 17 U/L (5-37); Bilirubin Total 0.1 mg/dL (0.0-1.0); Blood Urea Nitrogen 6 mg/dL (9-16); Calcium 8.8 mg/dL (8.4-10.2); Carbon Dioxide 31 mmol/L (22-29); Chloride 106 mmol/L (96-108); Creatinine Clr Calc Pharmacy 99.4; Estimated Glomerular Filt Rate > 60; Glucose Random 94 mg/dL (60-115); Lipase 10 U/L (8-78); Potassium 3.7 mmol/L (3.3-5.1); Sodium 143 mmol/L (135-145); Total Protein 6.3 g/dL (6.5-8.0)
[2023-07-13 19:33] LABS: Troponin-I High Sensitivity < 2.7 ng/L (<3.5-35.0)
[2023-07-13 19:54] VITALS: BP 120/62; PULSE 58; RESP 22; TEMP 36.6; O2SAT 98
[2023-07-13 21:29] LABS: Appearance Urine Clear; Color Urine Yellow; Glucose Urine UA Negative (Negative); Leukocyte Esterase Urine Negative (Negative); Nitrite Urine Negative (Negative); PH 6.5 (5.0-9.0); Specific Gravity - Urine 1.015 (1.005-1.025); Urine Blood Negative (Negative); Urine Ketones Negative (Negative); Urine Protein Negative (Neg-Trace)
--- NOTE | 2023-07-13 21:30 | PC.NURSE ---
pt able to produce urine sample. sample sent down to lab. pt resting positioned on R side
[2023-07-13 21:34] LABS: Bacteria Urine None Seen (None Seen); Hyaline Casts Urine 0-2 /LPF (0-2); RBC Urine 0-2 /HPF (0-2); Squamous Epithelial Cell Urine 0-2 /HPF (0-2); WBC Urine 0-5 /HPF (0-5)
[2023-07-13 21:58] VITALS: BP 106/64; PULSE 67; RESP 16; TEMP 36.6; O2SAT 97
[2023-07-13 22:02] VITALS: BP 106/64; PULSE 67; RESP 16; TEMP 36.6; O2SAT 97
== END 2023-07-13 22:04 | disposition home or self-care (01) ==
PROVIDERS: Physician Assistant; Emergency Provider Emergency Medicine
DX: J20.9 Acute bronchitis, unspecified (principal); F10.10 Alcohol abuse, uncomplicated; Z88.8 Allergy status to other drugs, medicaments and biological substances
CPT/HCPCS: 36415; 71045; 80053; 81001; 83690; 84484; 85025; 85610; 85730; 93005; 99283; 99284

== ENCOUNTER → 2023-07-13 17:15 | Outpatient (BNV) | payer MEDICAID, SELFPAY | PROVIDERS: Emergency Provider Emergency Medicine; Visit Provider Internal Medicine Cardiovascular Disease | DX: R07.9 Chest pain, unspecified (principal) | CPT/HCPCS: 93010 ==

== ENCOUNTER 2023-07-14 06:53 | Emergency (ER) | payer MEDICAID, SELFPAY ==
[2023-07-14 07:29] VITALS: BP 105/67; PULSE 71; RESP 16; TEMP 36.3; O2SAT 98; BMI 25.0
[2023-07-14 07:33] VITALS: BP 132/64; PULSE 92; O2SAT 98
--- NOTE | 2023-07-14 08:04 | ED.GENADULT ---
HPI - General Adult General Chief complaint: Behavioral Concerns Stated complaint: auditory hallucinations per ems Time Seen by Provider: 07/14/23 08:03 Source: patient and EMS Mode of arrival: EMS Limitations: no limitations History of Present Illness HPI narrative: Patient is a 53 year old assigned male at with a history of schizoaffective disorder presenting to the emergency department today with an increase in auditory hallucinations. Patient states that he is hearing more voices and sometimes they tell him to hurt himself. Patient denies any dizziness, lightheadedness, abdominal pain, nausea, vomiting, fever, chills, blurry vision, double vision, loss of vision, chest pain, difficulty breathing, shortness of breath, back pain, night sweats, pain with urination, increased urinary frequency, increased urinary urgency, blood in his urine or stool, syncope or a near syncopal episode, recent trauma or falls, bowel incontinence, bladder incontinence, bowel retention, bladder retention, or any other complaints at this time. Related Data Home Medications ?Medication ?Instructions ?Recorded ?Confirmed hydroxyzine HCl 50 mg tablet 50 mg PO QID PRN anxiety 03/03/22 05/10/23 amitriptyline 100 mg tablet 125 mg PO BEDTIME 07/11/22 05/09/23 atenolol 25 mg tablet 25 mg PO DAILY 07/11/22 05/09/23 cholecalciferol (vitamin D3) 25 25 mcg PO DAILY 07/11/22 05/09/23 mcg (1,000 unit) tablet (Vitamin D3) clonidine HCl 0.2 mg tablet 0.2 mg PO TID 07/11/22 05/10/23 metformin 500 mg tablet,extended 500 mg PO DAILY 07/11/22 05/10/23 release 24 hr albuterol sulfate 90 mcg/actuation 2 puff inhalation Q4-6H PRN Dyspnea 05/09/23 05/09/23 aerosol inhaler (Ventolin HFA) zolpidem 12.5 mg tablet,extended 12.5 mg PO BEDTIME PRN insomnia 05/09/23 05/09/23 release,multiphase benztropine 0.5 mg tablet 0.5 mg PO BID 05/10/23 05/10/23 diphenhydramine HCl 25 mg tablet 50 mg PO BEDTIME 05/10/23 05/10/23 melatonin 5 mg tablet 10 mg PO BEDTIME 05/10/23 05/10/23 mirtazapine 45 mg tablet 45 mg PO BEDTIME 05/10/23 05/10/23 Previous Rx's ?Medication ?Instructions ?Recorded acetaminophen 500 mg tablet 1,000 mg (2 x 500 mg) PO QID PRN 03/23/23 pain #30 tabs acetaminophen 325 mg capsule 325 mg PO QID PRN pain 7 days #28 06/07/23 (Tylenol) caps omeprazole 20 mg capsule,delayed 20 mg PO DAILY 90 days #90 caps 06/18/23 release polyethylene glycol 3350 17 17 g PO BID PRN Constipation 90 06/18/23 gram/dose oral powder (ClearLax) days #510 grams sennosides 8.6 mg tablet (senna) 8.6 mg PO BEDTIME PRN Constipation 06/18/23 90 days #90 tabs ondansetron 4 mg disintegrating 4 mg PO Q6-8H PRN nausea and 06/20/23 tablet vomiting #10 tabs oseltamivir 75 mg capsule (Tamiflu) 75 mg PO Q12H 5 days #10 caps 07/03/23 azithromycin 250 mg tablet See Rx Instructions PO .COMPLEX #6 07/13/23 tabs Allergies Allergy/AdvReac Type Severity Reaction Status Date / Time trazodone [TRAZODONE] Allergy Severe FACIAL Verified 07/14/23 07:32 SWELLING, swelling cat dander [CATS] Allergy Intermediate FACIAL Verified 07/14/23 07:32 ITCHING doxepin [DOXEPIN] Allergy Intermediate WEIGHT Verified 07/14/23 07:32 GAIN/LEG SWELLING Iodinated Contrast Media Allergy Intermediate ITCHING Verified 07/14/23 07:32 [IV DYE, IODINE CONTAINING CONTRAST ] nitroglycerin [NITROGLYCERIN] Allergy Unknown UNKNOWN Verified 07/14/23 07:32 tramadol [TRAMADOL] Allergy Unknown UNKNOWN, Verified 07/14/23 07:32 dry mouth ibuprofen [From MOTRIN] AdvReac Intermediate GI UPSET Verified 07/14/23 07:32 quetiapine [From SEROQUEL] AdvReac Intermediate FACIAL Verified 07/14/23 07:32 SWELLING aspirin [ASPIRIN] AdvReac Mild Stomach Verified 07/14/23 07:32 Upset Ibuprofen Allergy Unknown stomach Uncoded 07/14/23 07:32 ache IV contrast Allergy Unknown Unknown Uncoded 07/14/23 07:32 Motrin Allergy Unknown stomach Uncoded 07/14/23 07:32 pain Review of Systems Constitutional: Constitutional: Reports no additional constitutional complaints, Denies chills, Denies fever(s) and Denies night sweats Eyes: Eyes: Reports no additional eye complaints, Denies blurry vision, Denies change in vision, Denies diplopia, Denies eye discharge, Denies loss of vision and Denies eye pain ENT: Denies dizziness Cardiovascular: Cardiovascular: Reports no additional cardiovascular complaints, Denies chest pain, Denies lightheadedness, Denies Loss of Consciousness and Denies dyspnea Respiratory: Respiratory: Reports no additional respiratory complaints and Denies dyspnea Gastrointestinal: Gastrointestinal: Reports no additional gastrointestinal complaints, Denies abdominal pain, Denies melena, Denies hematochezia, Denies change in bowel habits and Denies change in stool character Genitourinary: Genitourinary: Reports no additional male genitourinary complaints, Denies hematuria, Denies oliguria, Denies difficulty urinating, Denies dysuria, Denies urinary frequency, Denies urinary hesitancy, Denies urinary incontinence and Denies urinary urgency Musculoskeletal: Musculoskeletal: Reports no additional musculoskeletal complaints, Denies numbness and Denies tingling Neurologic: Denies dizziness, Denies loss of vision, Denies numbness and Denies tingling Psychiatric: Psychiatric: Reports auditory hallucinations Endocrine: Endocrine: Reports no additional endocrine complaints Hematologic/Lymphatic: Hematologic/Lymphatic: Reports no additional hematologic/lymphatic complaints Allergic/Immunologic: Allergic/Immunologic: Reports no additional allergic/immunologic complaints [facility] Past Medical History Attestation statement: The following information was validated with the patient. Source: old records reviewed and nursing notes reviewed 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 GERD (gastroesophageal reflux disease) Anxiety Surgical History History of colonoscopy History of cystoscopy H/O umbilical hernia repair Family History Family History Father HTN (hypertension) Diabetes Mother HTN (hypertension) Stroke Alzheimer disease Heart disease Social History Social History Household Members: None Housing: Apartment Do you presently have visiting nurse or other home services: Yes Alcohol intake: former Comment: 1:1 sitter Patient Tobacco Use Status: Current everyday Tobacco user Tobacco use type: Cigarette Cigarette Packs Per Day: 1 Cigarettes Per Day: 20.0 Years Smoked: 9 e-Cigarette/Vaping Use: Never Used Second Hand Smoke Exposure: Yes Substance Use Type: Heroin and Opiates Advance Directives Date on File: 02/14/20 service: No Current occupational status: unemployed and disabled Sexual orientation: Straight/Heterosexual Physical Exam ED Vital Signs: Vital Signs - 24 hr 07/14/23 07:29 Temperature 97.3 F Pulse Rate 71 Respiratory Rate 16 Blood Pressure 105/67 Pulse Oximetry 98 Oxygen Delivery Method Room Air BMI result Body Mass Index 25.0 Const General: cooperative, no acute distress, alert and awake Nutritional Appearance: well nourished Orientation/consciousness: patient oriented x3 Limitations: no limitations HENMT Head: Yes normal to inspection and Yes atraumatic Ears: hearing grossly normal bilaterally and external ears normal General nose exam: Normal external nose present, no nasal discharge noted and no epistaxis Face and sinus: Yes normal facial exam, No abrasion and No laceration Mouth: Normal oral and palatal mucosa present, no drooling and no muffled voice Eyes General: appearance normal, both eyes and all related structures Periorbital: periorbital findings normal Eyelids: Yes eyelids normal Conjunctivae: conjunctivae normal Pupils: Equal, round and reactive pupils present EOM: EOMs intact bilaterally Neck Neck: Yes normal visual inspection, Yes full ROM and Yes no lymphadenopathy Chest Chest palpation & inspection: normal inspection of the chest Resp Effort & Inspection: normal respiratory effort and able to speak in complete sentences GI Inspection: Yes normal to inspection Neuro General: patient oriented x3 and moves all extremities Cranial nerves: Yes Equal, round and reactive pupils present Cognition (Neuro): normal cognition Motor exam (neuro): 5/5 motor strength present throughout Sensory Exam: Normal double simultaneous stimulation for sensation Coordination: [id number] test normal Extrem General: Yes normal to inspection, Yes full ROM and Yes capillary refill normal Psych Appearance: grossly normal Mental Status: mental status grossly normal Affect: normal affect Attitude: cooperative Thought process: Normal thought process present Thought content: Normal thought content present Insight: Good insight present (Psych) Medical Decision Making Medical Decision Making MDM Narrative: Patient is a 53 year old assigned male at with a history of schizoaffective disorder presenting to the emergency department today with increased auditory hallucinations. Patient's physical exam was unremarkable. I explained my physical exam findings to the patient. I answered all questions asked by the patient. Patient states that he knows not to hurt himself and that he does not want to hurt himself. Patient states that he feels he is safe to go home and would like to. Patient states that he knows to come back if he begins to have any thoughts of hurting himself, hurting others, or has any increased voices. I stressed the importance of the patient taking his medication as prescribed. I stressed the importance of the patient following up with his primary care provider. I stressed the importance of the patient returning to the emergency department immediately if his symptoms were to worsen or if he were to develop any dizziness, shortness of breath, difficulty breathing, chest pain, blurry vision, loss of vision, nausea, vomiting, abdominal pain, fever, chills, back pain, or any other complaints. Patient verbalized agreement and understanding with this treatment plan and discharge. Differential Diagnosis Differential Diagnoses: The differential diagnosis associated with the presentation includes Schizoaffective disorder Admission/Observation Consideration of admission/observation: Escalation of care including admission/observation considered Patient would have been admitted to the hospital had his work up had any findings where hospital admission was appropriate and his clinical presentation warranted hospital admission. Independent Historian Clinical information obtained from an independent historian. History obtained from or confirmed by: EMS (EMS provided additional history and confirmed the history provided by the patient.) Discharge Plan Discharge Clinical Impression: Auditory hallucination Patient Disposition: Home, Self-Care Instructions: Hallucinations (ED) Additional Instructions: Follow up with your primary care provider. Return to the emergency department immediately if your symptoms worsen or if you develop any dizziness, shortness of breath, difficulty breathing, chest pain, blurry vision, loss of vision, nausea, vomiting, abdominal pain, fever, chills, back pain, or any other complaints. Prescriptions: No Action sennosides [senna] 8.6 mg tablet 8.6 mg PO BEDTIME PRN (Reason: Constipation) 90 Days Qty: 90 1RF polyethylene glycol 3350 [ClearLax] 17 gram/dose powder 17 g PO BID PRN (Reason: Constipation) 90 Days Qty: 510 1RF omeprazole 20 mg capsule,delayed release(DR/EC) 20 mg PO DAILY 90 Days Qty: 90 1RF albuterol sulfate [Ventolin HFA] 90 mcg/actuation HFA aerosol inhaler 2 puff INHALATION Q4-6H PRN (Reason: Dyspnea) zolpidem 12.5 mg tablet,ext release multiphase 12.5 mg PO BEDTIME PRN (Reason: insomnia ) benztropine 0.5 mg tablet 0.5 mg PO BID diphenhydramine HCl 25 mg tablet 50 mg PO BEDTIME mirtazapine 45 mg tablet 45 mg PO BEDTIME melatonin 5 mg tablet 10 mg PO BEDTIME acetaminophen [Tylenol] 325 mg capsule 325 mg PO QID PRN (Reason: pain) 7 Days Qty: 28 0RF ondansetron 4 mg tablet,disintegrating 4 mg PO Q6-8H PRN (Reason: nausea and vomiting) Qty: 10 0RF oseltamivir [Tamiflu] 75 mg capsule 75 mg PO Q12H 5 Days Qty: 10 0RF azithromycin 250 mg tablet See Rx Instructions .ROUTE .COMPLEX Qty: 6 0RF Rx Instructions: For 250 mg dose pack: take 500 mg today (day 1), then 250 mg for 4 days (days 2-5) metformin 500 mg Tablet Extended Release 24 Hr 500 mg PO DAILY atenolol 25 mg Tablet 25 mg PO DAILY amitriptyline 100 mg Tablet 125 mg PO BEDTIME cholecalciferol (vitamin D3) [Vitamin D3] 25 mcg (1,000 unit) Tablet 25 mcg PO DAILY clonidine HCl 0.2 mg Tablet 0.2 mg PO TID acetaminophen 500 mg tablet 1,000 mg PO QID PRN (Reason: pain) Qty: 30 0RF hydroxyzine HCl 50 mg tablet 50 mg PO QID PRN (Reason: anxiety) Referrals: [facility] [place] [Provider Group] (Call to establish and follow up with a primary care provider. If you already have a primary care provider, please follow up with them.) [facility] [place] [facility] [Provider Group] [facility] [place] [facility] [Provider Group] Discharge Date/Time: 07/14/23 08:25 Print Language: Occitan
== END 2023-07-14 08:25 | disposition home or self-care (01) ==
LOC: HO.ED 08:09
PROVIDERS: Emergency Provider Emergency Medicine
DX: F25.9 Schizoaffective disorder, unspecified (principal); Z79.899 Other long term (current) drug therapy
CPT/HCPCS: 99281; 99283

== ENCOUNTER 2023-07-14 10:19 | Inpatient (IN) | payer OTHER, MEDICAID, SELFPAY ==
[2023-07-14 11:14] VITALS: BP 94/55; PULSE 81; RESP 16; TEMP 36.3; O2SAT 99; BMI 23.8
--- NOTE | 2023-07-14 11:14 | ED.GENADULT ---
HPI - General Adult General Chief complaint: Psychiatric Symptoms Stated complaint: Hallucinations Time Seen by Provider: 07/14/23 14:16 Source: patient, old records reviewed and per diem interpreter Mode of arrival: ambulatory Limitations: no limitations History of Present Illness HPI narrative: 52 yo male with PMH of depression, GERD, dysphagia, BPH, bipolar, anemia, alcohol and opiate use disorder, anxiety here with complaint of AH telling him to harm himself. He states he wants to and is very depressed. For several days he has not been taking his meds correctly complaint: AH, SI Onset (ago): day(s) (several) Radiation: non-radiation Severity: moderate Relieving factors: none Exacerbating factors: other Associated symptoms: other (AH) Treatments prior to arrival: none Related Data Home Medications ?Medication ?Instructions ?Recorded ?Confirmed hydroxyzine HCl 50 mg tablet 50 mg PO QID PRN anxiety 03/03/22 05/10/23 amitriptyline 100 mg tablet 125 mg PO BEDTIME 07/11/22 05/09/23 atenolol 25 mg tablet 25 mg PO DAILY 07/11/22 05/09/23 cholecalciferol (vitamin D3) 25 25 mcg PO DAILY 07/11/22 05/09/23 mcg (1,000 unit) tablet (Vitamin D3) clonidine HCl 0.2 mg tablet 0.2 mg PO TID 07/11/22 05/10/23 metformin 500 mg tablet,extended 500 mg PO DAILY 07/11/22 05/10/23 release 24 hr albuterol sulfate 90 mcg/actuation 2 puff inhalation Q4-6H PRN Dyspnea 05/09/23 05/09/23 aerosol inhaler (Ventolin HFA) zolpidem 12.5 mg tablet,extended 12.5 mg PO BEDTIME PRN insomnia 05/09/23 05/09/23 release,multiphase benztropine 0.5 mg tablet 0.5 mg PO BID 05/10/23 05/10/23 diphenhydramine HCl 25 mg tablet 50 mg PO BEDTIME 05/10/23 05/10/23 melatonin 5 mg tablet 10 mg PO BEDTIME 05/10/23 05/10/23 mirtazapine 45 mg tablet 45 mg PO BEDTIME 05/10/23 05/10/23 Previous Rx's ?Medication ?Instructions ?Recorded acetaminophen 500 mg tablet 1,000 mg (2 x 500 mg) PO QID PRN 03/23/23 pain #30 tabs acetaminophen 325 mg capsule 325 mg PO QID PRN pain 7 days #28 06/07/23 (Tylenol) caps omeprazole 20 mg capsule,delayed 20 mg PO DAILY 90 days #90 caps 06/18/23 release polyethylene glycol 3350 17 17 g PO BID PRN Constipation 90 06/18/23 gram/dose oral powder (ClearLax) days #510 grams sennosides 8.6 mg tablet (senna) 8.6 mg PO BEDTIME PRN Constipation 06/18/23 90 days #90 tabs ondansetron 4 mg disintegrating 4 mg PO Q6-8H PRN nausea and 06/20/23 tablet vomiting #10 tabs oseltamivir 75 mg capsule (Tamiflu) 75 mg PO Q12H 5 days #10 caps 07/03/23 azithromycin 250 mg tablet See Rx Instructions PO .COMPLEX #6 07/13/23 tabs Allergies Allergy/AdvReac Type Severity Reaction Status Date / Time trazodone [TRAZODONE] Allergy Severe FACIAL Verified 07/14/23 11:17 SWELLING, swelling cat dander [CATS] Allergy Intermediate FACIAL Verified 07/14/23 11:17 ITCHING doxepin [DOXEPIN] Allergy Intermediate WEIGHT Verified 07/14/23 11:17 GAIN/LEG SWELLING Iodinated Contrast Media Allergy Intermediate ITCHING Verified 07/14/23 11:17 [IV DYE, IODINE CONTAINING CONTRAST ] nitroglycerin [NITROGLYCERIN] Allergy Unknown UNKNOWN Verified 07/14/23 11:17 tramadol [TRAMADOL] Allergy Unknown UNKNOWN, Verified 07/14/23 11:17 dry mouth ibuprofen [From MOTRIN] AdvReac Intermediate GI UPSET Verified 07/14/23 11:17 quetiapine [From SEROQUEL] AdvReac Intermediate FACIAL Verified 07/14/23 11:17 SWELLING aspirin [ASPIRIN] AdvReac Mild Stomach Verified 07/14/23 11:17 Upset Ibuprofen Allergy Unknown stomach Uncoded 07/14/23 11:17 ache IV contrast Allergy Unknown Unknown Uncoded 07/14/23 11:17 Motrin Allergy Unknown stomach Uncoded 07/14/23 11:17 pain Review of Systems Review of Systems: Constitutional : No Fever, No Chills ENT/Mouth : No Ear Pain, No Nasal Congestion, No sore throat Eyes: No Eye Pain, No Swelling, No Redness Cardiovascular : No Chest Pain, No SOB Respiratory : No Cough, No Sputum, No Dyspnea Gastrointestinal : No Nausea, No Vomiting, No Diarrhea, No Hematochezia, No Melena Genitourinary : No Dysuria, No Urinary Frequency, No Hematuria Musculoskeletal : No Myalgias Skin : No Skin Lesions, No rash Neuro : No Weakness, No Numbness, No Paresthesias, No Dizziness, No Headache Psych : positive Anxiety, positive Depression, positive SI no HI, pos AH, no VH Heme/Lymph: No Lymphadenopathy Endocrine : No Polyuria, No Polydipsia All other systems reviewed and are negative [facility] Past Medical History Attestation statement: The following information was validated with the patient. 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 GERD (gastroesophageal reflux disease) Anxiety Surgical History History of colonoscopy History of cystoscopy H/O umbilical hernia repair Family History Family History Father HTN (hypertension) Diabetes Mother HTN (hypertension) Stroke Alzheimer disease Heart disease Social History Social History Household Members: None Housing: Apartment Do you presently have visiting nurse or other home services: Yes Alcohol intake: former Comment: 1:1 sitter Patient Tobacco Use Status: Current everyday Tobacco user Tobacco use type: Cigarette Cigarette Packs Per Day: 1 Cigarettes Per Day: 20.0 Years Smoked: 9 Smoked in Last 30 Days: No e-Cigarette/Vaping Use: Never Used Second Hand Smoke Exposure: Yes Use of substances other than those prescribed or required for medical reasons: No Substance Use Type: Heroin and Opiates Advance Directives: Yes Advance Directives on File: Yes Advance Directives Date on File: 02/14/20 service: No Current occupational status: unemployed and disabled Sexual orientation: Straight/Heterosexual Physical Exam ED Vital Signs: Vital Signs - 24 hr 07/14/23 11:14 07/14/23 17:57 Temperature 97.3 F 97.7 F Pulse Rate 81 65 Respiratory Rate 16 18 Blood Pressure 94/55 L 121/68 Pulse Oximetry 99 96 Oxygen Delivery Method Room Air Room Air BMI result Body Mass Index 23.8 Appearance: Alert. Oriented X3. No acute distress. Eyes: Pupils equal, round and reactive to light. ENT: Pharynx normal. L lower molar ttp mild swelling but no abdi abscess Neck: Normal inspection. Neck supple. CVS: Normal heart rate and rhythm. Pulses normal. Respiratory: No respiratory distress. Breath sounds normal. Abdomen: Soft and non-tender. Skin: Skin warm and dry. Normal skin color. Normal skin turgor. Extremities: No lower extremity edema. No calf ttp Neuro: Oriented X 3. No motor deficit. No sensory deficit. CN2-12 intact Course Course Course Narrative: RME:?53 yo male hx of schizoaffective disorder presents to the ED today for eval of auditory hallucinations that have been telling him to harm himself. He denies SI or HI. Denies TH/VH. He was seen here this morning for the same and was discharged prior to coming back to the ED. labs, UA, UDS ordered Full HPI, ROS and PE to be performed by the primary ED provider. Medical Decision Making Medical Decision Making [facility] Narrative: 52 yo male with PMH of depression, GERD, dysphagia, BPH, bipolar, anemia, alcohol and opiate use disorder, anxiety here with c/o AH and SI at this time will obtain basic labs and CARE team consult denies medical complaints states he is not taking his medications the way he is supposed to. given dental complaint will start on augmentin Differential Diagnosis Differential Diagnoses: The differential diagnosis associated with the presentation includes bipolar, SI, depression toothache dental abscess Admission/Observation Consideration of admission/observation: Escalation of care including admission/observation considered observe until CARE team sees patient 229pm physician observation started at 229pm Consult Healthcare Provider Management of the patient was discussed with: Behavioral Health Provider Lab Data [facility] Lab Attestation statement: I reviewed the patient's lab results. 07/14/23 11:43 07/14/23 11:43 Labs: Lab Results 07/14/23 07/14/23 Range/Units 11:43 15:16 WBC 7.3 (4.8-10.8) X10*3/uL RBC 3.66 L (4.60-5.80) X10*6/uL Hgb 10.7 L (14.0-18.0) g/dl Hct 33.0 L (42.0-52.0) % MCV 90.2 (80.0-98.0) fL MCH 29.2 (27.0-33.0) pg MCHC 32.4 (31.0-36.0) g/dl RDW 15.1 (11.0-16.0) % Plt Count 264 (160-400) X10*3/uL MPV 9.2 L (9.4-12.4) fL Immature Gran % (Auto) 0.3 (0.0-0.4) % Neut % (Auto) 62.3 (45-73) % Lymph % (Auto) 26.2 (20-40) % [place] % (Auto) 7.4 (2-11) % Eos % (Auto) 3.3 (0-4) % Baso % (Auto) 0.5 (0-2) % Lymph # (Auto) 1.9 (1.2-4.9) X10*3/uL [place] # (Auto) 0.5 (0.1-1.2) X10*3/uL Eos # (Auto) 0.2 (0.0-0.4) X10*3/uL Baso # (Auto) 0.0 (0.0-0.2) X10*3/uL Abs Immat Gran (auto) 0.02 (0.00-0.03) X10*3/uL Absolute Neuts (auto) 4.5 (2.0-8.3) x10*3/uL Absolute Nucleated RBC 0.000 (0.0-0.012) X10*3/uL Nucleated RBC % (auto) 0.0 (0.0-0.2) /100WBC Sodium 142 (135-145) mmol/L Potassium 3.8 (3.3-5.1) mmol/L Chloride 106 (96-108) mmol/L Carbon Dioxide 31 H (22-29) mmol/L Anion Gap 9 L (12-20) BUN 4 L (9-16) mg/dL Creatinine 0.70 (0.5-1.4) mg/dL Estim Creat Clear Calc 103.7 Estimated GFR > 60 Random Glucose 80 (60-115) mg/dL Calcium 9.3 (8.4-10.2) mg/dL Total Bilirubin 0.2 (0.0-1.0) mg/dL AST 15 (5-37) U/L ALT 12 (0-40) U/L Alkaline Phosphatase 67 (39-117) U/L Total Protein 6.6 (6.5-8.0) g/dL Albumin 3.4 L (3.5-5.0) g/dL Urine Color Yellow Urine Appearance Clear Urine pH 7.5 (5.0-9.0) Ur Specific [place] 1.010 (1.005-1.025) Urine Protein Negative (Neg-Trace) mg/dL Urine Glucose (UA) Negative (Negative) mg/dL Urine Ketones Negative (Negative) mg/dL Urine Blood Negative (Negative) Urine Nitrite Negative (Negative) Ur Leukocyte Esterase Small (1+) H (Negative) Urine RBC 0-2 (0-2) /HPF Urine WBC 6-10 H (0-5) /HPF Ur Squamous Epith Cells 0-2 (0-2) /HPF Urine Bacteria None Seen (None Seen) Hyaline Casts 0-2 (0-2) /LPF Urine Opiates Screen Not Detected (Not Detect) Urine Fentanyl Screen Not Detected (Not Detect) Ur Barbiturates Screen Not Detected (Not Detect) Ur Phencyclidine Scrn Not Detected (Not Detect) Ur Amphetamines Screen Not Detected (Not Detect) U Benzodiazepines Scrn POSITIVE H (Not Detect) Urine Cocaine Screen Not Detected (Not Detect) U Marijuana (THC) Screen Not Detected (Not Detect) Ethyl Alcohol < 10 mg/dL Influenza Type A (PCR) NEGATIVE (Negative) Influenza Type B (PCR) NEGATIVE (Negative) RSV RNA Qual (PCR) NEGATIVE (Negative) SARS-CoV-2 RNA (RT-PCR) NEGATIVE (Negative) External Record Review External record reviewed: Inpatient record Social Determinants Patient?s care significantly limited by Social Determinants of Health including: Problems related to primary support group Discharge Plan Discharge Clinical Impression: Suicidal ideation, Tooth ache Patient Disposition: Still a Patient Prescriptions: No Action sennosides [senna] 8.6 mg tablet 8.6 mg PO BEDTIME PRN (Reason: Constipation) 90 Days Qty: 90 1RF polyethylene glycol 3350 [ClearLax] 17 gram/dose powder 17 g PO BID PRN (Reason: Constipation) 90 Days Qty: 510 1RF omeprazole 20 mg capsule,delayed release(DR/EC) 20 mg PO DAILY 90 Days Qty: 90 1RF albuterol sulfate [Ventolin HFA] 90 mcg/actuation HFA aerosol inhaler 2 puff INHALATION Q4-6H PRN (Reason: Dyspnea) zolpidem 12.5 mg tablet,ext release multiphase 12.5 mg PO BEDTIME PRN (Reason: insomnia ) benztropine 0.5 mg tablet 0.5 mg PO BID diphenhydramine HCl 25 mg tablet 50 mg PO BEDTIME mirtazapine 45 mg tablet 45 mg PO BEDTIME melatonin 5 mg tablet 10 mg PO BEDTIME acetaminophen [Tylenol] 325 mg capsule 325 mg PO QID PRN (Reason: pain) 7 Days Qty: 28 0RF ondansetron 4 mg tablet,disintegrating 4 mg PO Q6-8H PRN (Reason: nausea and vomiting) Qty: 10 0RF oseltamivir [Tamiflu] 75 mg capsule 75 mg PO Q12H 5 Days Qty: 10 0RF azithromycin 250 mg tablet See Rx Instructions .ROUTE .COMPLEX Qty: 6 0RF Rx Instructions: For 250 mg dose pack: take 500 mg today (day 1), then 250 mg for 4 days (days 2-5) metformin 500 mg Tablet Extended Release 24 Hr 500 mg PO DAILY atenolol 25 mg Tablet 25 mg PO DAILY amitriptyline 100 mg Tablet 125 mg PO BEDTIME cholecalciferol (vitamin D3) [Vitamin D3] 25 mcg (1,000 unit) Tablet 25 mcg PO DAILY clonidine HCl 0.2 mg Tablet 0.2 mg PO TID acetaminophen 500 mg tablet 1,000 mg PO QID PRN (Reason: pain) Qty: 30 0RF hydroxyzine HCl 50 mg tablet 50 mg PO QID PRN (Reason: anxiety) Interventions: [place]-Suicide Risk Severity Scale Last Done: 07/14/23 19:42 Print Language: Iraqi
[2023-07-14 11:46] LABS: MANUAL DIFF FLAG NO
[2023-07-14 11:48] LABS: Basophils Percent Auto 0.5 % (0-2); Eosinophils Absolute Auto 0.2 X10*3/uL (0.0-0.4); Eosinophils Percent Auto 3.3 % (0-4); Hemoglobin 10.7 g/dl (14.0-18.0); Imm Gran Abs Auto 0.02 X10*3/uL (0.00-0.03); Imm Gran Pct Auto 0.3 % (0.0-0.4); Lymphocytes Absolute Auto 1.9 X10*3/uL (1.2-4.9); Lymphocytes Percent Auto 26.2 % (20-40); Mean Corpuscular HGB Conc 32.4 g/dl (31.0-36.0); Mean Corpuscular Hemoglobin 29.2 pg (27.0-33.0); Mean Corpuscular Volume 90.2 fL (80.0-98.0); Mean Platelet Volume 9.2 fL (9.4-12.4); Monocytes Absolute Auto 0.5 X10*3/uL (0.1-1.2); Monocytes Percent Auto 7.4 % (2-11); Neutrophils Absolute Auto 4.5 x10*3/uL (2.0-8.3); Neutrophils Percent Auto 62.3 % (45-73); Platelet Count 264 X10*3/uL (160-400); Red Blood Count 3.66 X10*6/uL (4.60-5.80); Red Cell Distribution Width 15.1 % (11.0-16.0); White Blood Count 7.3 X10*3/uL (4.8-10.8)
[2023-07-14 12:14] LABS: Alanine Aminotransferase 12 U/L (0-40); Albumin Level 3.4 g/dL (3.5-5.0); Alkaline Phosphatase 67 U/L (39-117); Anion Gap 9 (12-20); Aspartate Amino Transferase 15 U/L (5-37); Bilirubin Total 0.2 mg/dL (0.0-1.0); Blood Urea Nitrogen 4 mg/dL (9-16); Calcium 9.3 mg/dL (8.4-10.2); Carbon Dioxide 31 mmol/L (22-29); Chloride 106 mmol/L (96-108); Creatinine Clr Calc Pharmacy 103.7; Estimated Glomerular Filt Rate > 60; Ethanol < 10 mg/dL; Glucose Random 80 mg/dL (60-115); Potassium 3.8 mmol/L (3.3-5.1); Sodium 142 mmol/L (135-145); Total Protein 6.6 g/dL (6.5-8.0)
--- NOTE | 2023-07-14 14:37 | PC.NURSE ---
pt has reported to the MD that he is now endorsing SI. he was changed into behavioral health attire and will be placed in the pod. Pt is agreeable to plan
--- NOTE | 2023-07-14 15:15 | PC.NURSE ---
PT TRANSFERRED TO THE POD BED 7.
[2023-07-14 15:24] LABS: Appearance Urine Clear; Color Urine Yellow; Glucose Urine UA Negative (Negative); Leukocyte Esterase Urine Small (1+) (Negative); Nitrite Urine Negative (Negative); PH 7.5 (5.0-9.0); UMIC TRIGGER UACC YES; Urine Blood Negative (Negative); Urine Ketones Negative (Negative); Urine Protein Negative (Neg-Trace)
[2023-07-14 15:38] LABS: Amphetamine Screen Urine Not Detected (Not Detect); Bacteria Urine None Seen (None Seen); Barbiturates, Urine Not Detected (Not Detect); Benzodiazepines Screen Urine POSITIVE (Not Detect); Cannabinoid Screen Urine Not Detected (Not Detect); Cocaine Screen Urine Not Detected (Not Detect); Fentanyl, urine Not Detected (Not Detect); Hyaline Casts Urine 0-2 /LPF (0-2); Opiate Screen Urine Not Detected (Not Detect); Phencyclidine Screen Urine Not Detected (Not Detect); RBC Urine 0-2 /HPF (0-2); Squamous Epithelial Cell Urine 0-2 /HPF (0-2); UACC Culture Trigger YES
[2023-07-14 16:07] LABS: Influenza A PCR NEGATIVE (Negative); Influenza B PCR NEGATIVE (Negative); Resp Syncy Virus RNA Qual PCR NEGATIVE (Negative); SARS COV2 PCR INHOUSE NEGATIVE (Negative)
--- NOTE | 2023-07-14 17:36 | PC.NURSE ---
CARE TEAM AT BEDSIDE, PT AWARE OF PLAN OF CARE.
[2023-07-14 17:57] VITALS: BP 121/68; PULSE 65; RESP 18; TEMP 36.5; O2SAT 96
--- NOTE | 2023-07-14 18:44 | PC.NURSE ---
PT L SIDE OF JAW SWOLLEN. AWARE.
--- NOTE | 2023-07-14 19:47 | PC.NURSE ---
Assumed care of patient at 1900, patient appears to be sleeping, respirations even and unlabored, no apparent distress noted at this time. Pending CARE patriciaal
[2023-07-14] MEDS: Amoxicillin/Potassium Clav 875 MG TABLET PO (21:48)
[2023-07-15] MEDS: Ondansetron ODT 4 MG TAB.RAPDIS TRANSLINGU (01:45)
[2023-07-15] MEDS: Omeprazole 20 MG CAPSULE.DR PO (08:30)
[2023-07-15] MEDS: fluPHENAZine HCl 5 MG TABLET PO ×2 (08:30→20:54)
[2023-07-15] MEDS: Benztropine Mesylate 0.5 MG TABLET PO ×2 (08:30→20:54)
[2023-07-15] MEDS: Amoxicillin/Potassium Clav 875 MG TABLET PO ×2 (08:30→20:52)
[2023-07-15 08:32] VITALS: BP 110/68; PULSE 91; RESP 16; TEMP 36.9; O2SAT 98
--- NOTE | 2023-07-15 09:30 | ECG_ITS ---
Test Reason : qt interval Blood Pressure : / mmHG Vent. Rate : 090 BPM Atrial Rate : 090 BPM P-R Int : 140 ms QRS Dur : 070 ms QT Int : 346 ms P-R-T Axes : 032 -03 032 degrees QTc Int : 423 ms Normal sinus rhythm Minimal voltage criteria for LVH, may be normal variant ( R in aVL ) Borderline ECG When compared with ECG of 13-JUL-2023 17:15, No significant change was found Referred By: Elaina Maravilla Electronically Signed By:Scottie Figueroa
[2023-07-15 11:36] VITALS: BP 120/81; PULSE 102; RESP 16
[2023-07-15] MEDS: cloNIDine HCL 0.2 MG TABLET PO (11:38)
--- NOTE | 2023-07-15 13:38 | PC.NURSE ---
assumed care of pt at 0700. pt a&o, calm, and cooperative. pt will lie down in bed and then walk around unit. makes needs known. pt utox positive for benzos. pt admits to taking klonopin on the street. last use prior to ED arrival. CAROLYN Camara aware. nurse to nurse report given. pt awaiting transport. pt makes needs known, is med compliant. pt medicated with AM abx, t/w educated pt to eat with medication, pt refused stating I will later . pt then became nauseous, however, did not vomit. pt given crackers and nausea subsided. pt currently resting quietly, in no apparent distress. rr even/unlabored. plan of care ongoing.
[2023-07-15 14:00] VITALS: BP 103/67; PULSE 99; RESP 18; TEMP 36.4; O2SAT 99
[2023-07-15] MEDS: Acetaminophen 325 MG TABLET 650 MG PO (17:18)
--- NOTE | 2023-07-15 18:35 | PC.NURSE ---
Patient brought to unit by wheelchair from [facility] at 14:00. Vitals, height and weight and skin check done. Patient is a smoker but only wishes to have the nicotine lozenge ordered, smokes approximately 12 cigarettes a day. Pt states that he has already had flu vaccine this year. Pt previously admitted to unit so orientation was not necessary.
[2023-07-15 20:35] VITALS: BP 85/54; PULSE 106; TEMP 36.7
[2023-07-15] MEDS: diphenhydrAMINE HCL 25 MG CAPSULE 50 MG PO (20:52)
[2023-07-15] MEDS: Amitriptyline HCl 50 MG TABLET 100 MG PO (20:53)
[2023-07-15] MEDS: Amitriptyline HCl 25 MG TABLET PO (20:53)
[2023-07-15] MEDS: Zolpidem Tartrate 5 MG TABLET PO (20:54)
[2023-07-15] MEDS: Melatonin 3 MG TABLET 9 MG PO (20:54)
[2023-07-15] MEDS: Mirtazapine 15 MG TABLET 45 MG PO (20:55)
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
[2023-07-16] MEDS: Omeprazole 20 MG CAPSULE.DR PO (05:58)
[2023-07-16 07:00] VITALS: BMI 23.9
[2023-07-16] MEDS: Amoxicillin/Potassium Clav 875 MG TABLET PO ×2 (08:42→20:30)
[2023-07-16] MEDS: Benztropine Mesylate 0.5 MG TABLET PO ×2 (08:42→20:56)
[2023-07-16] MEDS: cloNIDine HCL 0.2 MG TABLET PO (08:42)
[2023-07-16] MEDS: fluPHENAZine HCl 5 MG TABLET PO ×2 (08:42→20:30)
[2023-07-16 08:45] VITALS: BP 122/73; PULSE 73; RESP 18; TEMP 36.8; O2SAT 98
[2023-07-16 09:22] LABS: Estimated Average Glucose 111 mg/dL; Hemoglobin A1c % 5.5 % (<6.0)
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
[2023-07-16 10:07] LABS: Cholesterol 228 mg/dL (<200); HDL Cholesterol 47 mg/dL (>40); LDL Cholesterol Calculated 148 mg/dL (<100); Triglycerides 169 mg/dL (<150)
[2023-07-16] MEDS: Loperamide HCl 2 MG CAPSULE PO (10:33)
--- NOTE | 2023-07-16 11:54 | MHC.CLN ---
RE: CONSULT FOR 40# WT LOSS R/T DEPRESSIVE SYMPTOMS HT 65 WT 143# IBW 136#+/-10% PT IS 105% IBW INDICATES ADEQUATE WT FOR HT; BMI 23.9 PREVIOUS WT HX REVEALS 157.5# (11/07/22) PT WITH 9% NONSIGNIFICANT WT LOSS X 6 MONTHS PT REPORTS POOR PO INTAKE R/T MDD LABS REVIEWED DIET RX: REGULAR-APPROPRIATE RECOMMEND ADDING ENSURE BID TO INCREASE KCALS SUPP TO PROVIDE 700KCALS, 40G PROTEIN MONITOR PO INTAKE AND ENCOURAGE SUPPLEMENT
[2023-07-16] MEDS: LORazepam 1 MG TABLET PO (16:59)
[2023-07-16 18:00] VITALS: BP 95/61; PULSE 99; RESP 16; TEMP 36.7; O2SAT 97
[2023-07-16] MEDS: Ibuprofen 600 MG TABLET PO (18:09)
[2023-07-16] MEDS: diphenhydrAMINE HCL 25 MG CAPSULE 50 MG PO (20:29)
[2023-07-16] MEDS: Melatonin 3 MG TABLET 9 MG PO (20:29)
[2023-07-16] MEDS: Mirtazapine 15 MG TABLET 45 MG PO (20:29)
[2023-07-16] MEDS: Amitriptyline HCl 25 MG TABLET PO (20:37)
[2023-07-16] MEDS: Amitriptyline HCl 50 MG TABLET 100 MG PO (20:37)
[2023-07-16 20:44] VITALS: BP 88/53; PULSE 74
--- NOTE | 2023-07-16 20:57 | PC.NURSE ---
Upon re check of blood pressure for evening medications, patient BP 88/53, pulse 74. Asymptomatic. Provider transitional living specialist notified.
[2023-07-17] MEDS: Loperamide HCl 2 MG CAPSULE PO ×2 (04:36→23:04)
[2023-07-17] MEDS: Omeprazole 20 MG CAPSULE.DR PO (04:36)
[2023-07-17] MEDS: Benztropine Mesylate 0.5 MG TABLET PO ×2 (08:52→20:15)
[2023-07-17] MEDS: Amoxicillin/Potassium Clav 875 MG TABLET PO ×2 (08:52→20:17)
[2023-07-17] MEDS: cloNIDine HCL 0.2 MG TABLET PO ×2 (08:52→20:15)
[2023-07-17] MEDS: fluPHENAZine HCl 5 MG TABLET PO ×2 (08:53→20:16)
[2023-07-17 09:00] VITALS: BP 105/64; PULSE 83; RESP 16; TEMP 36.3; O2SAT 99
[2023-07-17] MEDS: Ibuprofen 600 MG TABLET PO (10:43)
--- NOTE | 2023-07-17 11:19 | P.PNPSI_ITS ---
Subjective Subjective Date of Service: 07/17/23 Reason For Visit: Interim History: Met with patient; discussed with team Patient reports that he is feeling better, no SI; not very angry at his sister anymore. Also no AVH in slept well. No problems with having restarted meds. Asks for clonazepam Mental Status Exam Mental Status Exam Narrative: Pt is alert and oriented; behavior is cooperative, calm; patient is not in distress; dressed in casual attire with adequate hygiene; mood is described as so-so and affect constricted; eye contact appropriate; Speech is normal rate, volume and prosody and not pressured; no psychomotor agitation/retardation present; thought process is organized and goal directed; Thought content is on treatment; otherwise pertinent to relevant topics and without any delusional content, paranoid ideations or grandiosity; no SI; no HI. Denies AVH Patients insight and judgment impaired but improving Diagnostics Vital Signs (24Hr): Vital Signs - 24 hr 07/16/23 18:00 07/16/23 20:44 07/17/23 09:00 Temperature 98.1 F 97.3 F Pulse Rate 99 74 83 Respiratory Rate 16 16 Blood Pressure 95/61 88/53 L 105/64 Pulse Oximetry 97 99 Oxygen Delivery Method Room Air Room Air BMI result Body Mass Index 23.9 Labs 07/14/23 11:43 07/14/23 11:43 Labs: Laboratory Results - last 48 hr 07/16/23 08:10 Estimat Average Glucose 111 Hemoglobin A1c % 5.5 Triglycerides 169 H Cholesterol 228 H LDL Cholesterol, Calc 148 H HDL Cholesterol 47 Medications Medications Current Medications Acetaminophen (Acetaminophen 325 Mg Tablet) 650 mg PO Q6H PRN PRN Reason: Headache/Pain Mild Scale (1-3) Last Admin: 07/15/23 17:18 Dose: 650 mg Al Hydroxide/Mg Hydroxide (Magnesium Hydrox/Alum Hydrox 30 Ml Oral.Susp) 30 ml PO Q6H PRN PRN Reason: Heartburn/Nausea Amitriptyline HCl (Amitriptyline Hcl 50 Mg Tablet) 100 mg PO BEDTIME JAMES Last Admin: 07/16/23 20:37 Dose: 100 mg Amitriptyline HCl (Amitriptyline Hcl 25 Mg Tablet) 25 mg PO BEDTIME JAMES Last Admin: 07/16/23 20:37 Dose: 25 mg Amoxicillin/Clavulanate Potassium (Amoxicillin/Potassium Clav 875 Mg Tablet) 875 mg PO BID [facility] Stop: 07/21/23 09:01 Last Admin: 07/17/23 08:52 Dose: 875 mg Benztropine Mesylate (Benztropine Mesylate 0.5 Mg Tablet) 0.5 mg PO BID [facility] Last Admin: 07/17/23 08:52 Dose: 0.5 mg Capsaicin (Capsaicin 0.025% Cream 60 Gm Tube) 1 appl TOPICAL TID PRN; Protocol PRN Reason: b/l arthritic knee pain Clonidine HCl (Clonidine Hcl 0.2 Mg Tablet) 0.2 mg PO BID [facility]; Protocol Last Admin: 07/17/23 08:52 Dose: 0.2 mg Diphenhydramine HCl (Diphenhydramine Hcl 25 Mg Capsule) 50 mg PO BEDTIME [facility] Last Admin: 07/16/23 20:29 Dose: 50 mg Fluphenazine HCl (Fluphenazine Hcl 5 Mg Tablet) 5 mg PO BID [facility] Last Admin: 07/17/23 08:53 Dose: 5 mg Hydroxyzine HCl (Hydroxyzine Hcl 25 Mg Tablet) 25 mg PO Q6H PRN PRN Reason: Anxiety Ibuprofen (Ibuprofen 600 Mg Tablet) 600 mg PO Q8H PRN PRN Reason: Pain, Mild (Pain Scale 1-3) Last Admin: 07/17/23 10:43 Dose: 600 mg Loperamide HCl (Loperamide Hcl 2 Mg Capsule) 2 mg PO Q6H PRN PRN Reason: Loose Stool Last Admin: 07/17/23 04:36 Dose: 2 mg Magnesium Hydroxide (Milk Of Magnesia 30 Ml Oral.Susp) 30 ml PO DAILY PRN PRN Reason: Constipation Melatonin (Melatonin 3 Mg Tablet) 9 mg PO BEDTIME [facility] Last Admin: 07/16/23 20:29 Dose: 9 mg Mirtazapine (Mirtazapine 15 Mg Tablet) 45 mg PO BEDTIME [facility] Last Admin: 07/16/23 20:29 Dose: 45 mg Nicotine (Nicotine 21 Mg Patch.Td24) 21 mg TRANSDERMA DAILY PRN PRN Reason: smoking cessation Nicotine Polacrilex (Nicotine Polacrilex 2 Mg Gum) 4 mg BUCCAL Q2H PRN PRN Reason: Nicotine Cravings Nicotine Polacrilex (Nicotine Polacrilex 2 Mg Gum) 2 mg BUCCAL Q1H PRN PRN Reason: Nicotine Cravings Olanzapine (Olanzapine 5 Mg Tablet) 5 mg PO TID PRN PRN Reason: agitation Omeprazole (Omeprazole 20 Mg Capsule.Dr) 20 mg PO DAILY@0630 JAMES Last Admin: 07/17/23 04:36 Dose: 20 mg Senna (Sennosides 8.6 Mg Tablet) 8.6 mg PO BEDTIME PRN PRN Reason: Constipation Zolpidem Tartrate (Zolpidem Tartrate 5 Mg Tablet) 5 mg PO BEDTIME PRN PRN Reason: insomnia Last Admin: 07/15/23 20:54 Dose: 5 mg Allergies Allergies Allergy/AdvReac Type Severity Reaction Status Date / Time trazodone [TRAZODONE] Allergy Severe FACIAL Verified 07/14/23 11:17 SWELLING, swelling cat dander [CATS] Allergy Intermediate FACIAL Verified 07/14/23 11:17 ITCHING doxepin [DOXEPIN] Allergy Intermediate WEIGHT Verified 07/14/23 11:17 GAIN/LEG SWELLING Iodinated Contrast Media Allergy Intermediate ITCHING Verified 07/14/23 11:17 [IV DYE, IODINE CONTAINING CONTRAST ] nitroglycerin [NITROGLYCERIN] Allergy Unknown UNKNOWN Verified 07/14/23 11:17 tramadol [TRAMADOL] Allergy Unknown UNKNOWN, Verified 07/14/23 11:17 dry mouth ibuprofen [From MOTRIN] AdvReac Intermediate GI UPSET Verified 07/14/23 11:17 quetiapine [From SEROQUEL] AdvReac Intermediate FACIAL Verified 07/14/23 11:17 SWELLING aspirin [ASPIRIN] AdvReac Mild Stomach Verified 07/14/23 11:17 Upset Ibuprofen Allergy Unknown stomach Uncoded 07/14/23 11:17 ache IV contrast Allergy Unknown Unknown Uncoded 07/14/23 11:17 Motrin Allergy Unknown stomach Uncoded 07/14/23 11:17 pain Assessment & Plan Assessment & Plan (1) Schizoaffective disorder: Status: Acute Code(s): F25.9 - Schizoaffective disorder, unspecified (2) Tooth ache: Status: Acute Code(s): K08.89 - Other specified disorders of teeth and supporting structures Plan Patient is a 53-year-old male with history of schizoaffective disorder, depressed type, opioid/cocaine abuse in sustained remission, intermittent SI and multiple hospitalizations who self- presents for suicidal ideation in the face of relational strife. Patient reports he is feeling in a good mood until this past month when his sister, whom he says is jealous that patient has his own apartment, was being rude to him, bossy, giving him orders in his own house and eventually saying to him I hope you ... Patient said ever since she said this his depression came back and he has been feeling like no one in his family cares about him, that he is a dog to his family. Because he was upset, he stopped taking his medications for the past couple weeks and his depression continued to worsen. Although he reports having the support of other family members, his sister's comment deeply affected him and his depression continued to get worse and worse. This past week he started feeling suicidal and had thoughts to cut himself, cut his head and neck he said I was going to cut my head but a friend of his encouraged him to come to the emergency room so he self presented. Patient endorses auditory hallucinations which he says are daily and independent of mood. Denies any recent substance abuse; wants to get back on home medications. Formulation; Patient here with very similar presentation to past admissions; thankfully he is remained sober. Patient did not actually harm himself and though Depressed says SI is clearing up -patient says he buys clonazepam on the street and only takes 2 pills daily Hospital course: 07/16 patient doing better, denies SI, mood is better; no longer angry at his sister; denies AVH and patient says slept well. Asks if he can have clonazepam while here since he buys it on the streets. Hide Curer agreed to low-dose -Patient already feeling better which is typical for past admissions; no need for medication changes at this time Plan: CV Q 15 minute checks Add clonazepam 0.5 mg b.i.d. Amitriptyline HCl (Amitriptyline Hcl 50 Mg Tablet) 100 mg PO BEDTIME JAMES Amitriptyline HCl (Amitriptyline Hcl 25 Mg Tablet) 25 mg PO BEDTIME JAMES Mirtazapine (Mirtazapine 15 Mg Tablet) 45 mg PO BEDTIME JAMES Fluphenazine HCl (Fluphenazine Hcl 5 Mg Tablet) 5 mg PO BID JAMES Benztropine Mesylate (Benztropine Mesylate 0.5 Mg Tablet) 0.5 mg PO BID JAMES Zolpidem Tartrate (Zolpidem Tartrate 5 Mg Tablet) 5 mg PO BEDTIME PRN Amoxicillin/Clavulanate Potassium 875 mg PO BID JAMES (started in ED L lower molar ttp mild swelling but no abdi abscess ) Capsaicin (Capsaicin 0.025% Cream 60 Gm Tube) 1 appl TOPICAL TID PRN; Protocol Clonidine HCl (Clonidine Hcl 0.2 Mg Tablet) 0.2 mg PO BID JAMES; Protocol Diphenhydramine HCl (Diphenhydramine Hcl 25 Mg Capsule) 50 mg PO BEDTIME JAMES Loperamide HCl (Loperamide Hcl 2 Mg Capsule) 2 mg PO Q6H PRN Magnesium Hydroxide (Milk Of Magnesia 30 Ml Oral.Susp) 30 ml PO DAILY PRN Melatonin (Melatonin 3 Mg Tablet) 9 mg PO BEDTIME JAMES Omeprazole (Omeprazole 20 Mg Capsule.Dr) 20 mg PO DAILY@0630 JAMES Senna (Sennosides 8.6 Mg Tablet) 8.6 mg PO BEDTIME PRN Patient educated on: diagnosis and medication risk/benefits Informed Consent: understands Reason for continued inpatient stay Substantial Risk for: rapid decompensation Time Spent With Patient Time: Total time managing care of this patient today ____ minutes.
[2023-07-17] MEDS: hydrOXYzine HCL 25 MG TABLET PO (15:45)
[2023-07-17] MEDS: clonazePAM 0.5 MG TABLET PO (17:11)
[2023-07-17] MEDS: diphenhydrAMINE HCL 25 MG CAPSULE 50 MG PO (20:15)
[2023-07-17] MEDS: Amitriptyline HCl 25 MG TABLET PO (20:15)
[2023-07-17] MEDS: Amitriptyline HCl 50 MG TABLET 100 MG PO (20:16)
[2023-07-17] MEDS: Mirtazapine 15 MG TABLET 45 MG PO (20:16)
[2023-07-17] MEDS: Melatonin 3 MG TABLET 9 MG PO (20:17)
[2023-07-18] MEDS: OLANZapine 5 MG TABLET PO (01:31)
[2023-07-18] MEDS: Zolpidem Tartrate 5 MG TABLET PO ×2 (01:32→19:41)
[2023-07-18] MEDS: Omeprazole 20 MG CAPSULE.DR PO (06:09)
[2023-07-18] MEDS: Loperamide HCl 2 MG CAPSULE PO ×3 (06:17→23:48)
[2023-07-18] MEDS: clonazePAM 0.5 MG TABLET PO ×2 (08:39→17:46)
[2023-07-18] MEDS: Benztropine Mesylate 0.5 MG TABLET PO ×2 (08:39→19:42)
[2023-07-18] MEDS: fluPHENAZine HCl 5 MG TABLET PO ×2 (08:39→19:44)
[2023-07-18] MEDS: cloNIDine HCL 0.2 MG TABLET PO ×2 (08:39→19:44)
[2023-07-18] MEDS: Amoxicillin/Potassium Clav 875 MG TABLET PO ×2 (08:39→19:42)
[2023-07-18 08:40] VITALS: BP 117/63; PULSE 86; RESP 16; TEMP 36.4; O2SAT 97
[2023-07-18] MEDS: hydrOXYzine HCL 25 MG TABLET PO ×2 (12:41→23:48)
[2023-07-18 19:35] VITALS: BP 136/76; PULSE 103; TEMP 36.5
[2023-07-18] MEDS: Melatonin 3 MG TABLET 9 MG PO (19:41)
[2023-07-18] MEDS: Mirtazapine 15 MG TABLET 45 MG PO (19:42)
[2023-07-18] MEDS: Amitriptyline HCl 50 MG TABLET 100 MG PO (19:43)
[2023-07-18] MEDS: diphenhydrAMINE HCL 25 MG CAPSULE 50 MG PO (19:43)
[2023-07-18] MEDS: Amitriptyline HCl 25 MG TABLET PO (19:43)
--- NOTE | 2023-07-18 21:49 | HO.PSYCHPN ---
Subjective Subjective Date of Service: 07/18/23 Reason For Visit: AH Subjective Notes: Conditional Voluntary Interim History: Patient seen out on unit. Intermittently visible. Quiet, keeps to self. No behavioral issues. Says he feels ok , denies any thoughts of giving up or thoughts to harm himself. Denies any aggressive ideation. Says he slept last night. Denies any AH or VH currently. Endorses feeling safe on unit, but presents as guarded, ?paranoid, constricted affect. No complaints or concerns. Medication Compliance: Yes Side effects from medications: No Mental Status Exam Mental Status Exam Narrative: Pt is alert and oriented; behavior is cooperative, calm; patient is not in distress; dressed in casual attire with adequate hygiene; mood is described as so-so and affect constricted; eye contact appropriate; Speech is normal rate, volume and prosody and not pressured; no psychomotor agitation/retardation present; thought process is organized and goal directed; Thought content is on treatment; otherwise pertinent to relevant topics and without any delusional content, paranoid ideations or grandiosity; no SI; no HI. Denies AVH Patients insight and judgment impaired but improving Diagnostics Vital Signs (24Hr): Vital Signs - 24 hr 07/18/23 08:40 07/18/23 19:35 Temperature 97.6 F 97.7 F Pulse Rate 86 103 H Respiratory Rate 16 Blood Pressure 117/63 136/76 Pulse Oximetry 97 Oxygen Delivery Method Room Air BMI result Body Mass Index 23.9 Labs 07/14/23 11:43 07/14/23 11:43 Medications Medications Current Medications Acetaminophen (Acetaminophen 325 Mg Tablet) 650 mg PO Q6H PRN PRN Reason: Headache/Pain Mild Scale (1-3) Last Admin: 07/15/23 17:18 Dose: 650 mg Al Hydroxide/Mg Hydroxide (Magnesium Hydrox/Alum Hydrox 30 Ml Oral.Susp) 30 ml PO Q6H PRN PRN Reason: Heartburn/Nausea Amitriptyline HCl (Amitriptyline Hcl 50 Mg Tablet) 100 mg PO BEDTIME JAMES Last Admin: 07/18/23 19:43 Dose: 100 mg Amitriptyline HCl (Amitriptyline Hcl 25 Mg Tablet) 25 mg PO BEDTIME JAMES Last Admin: 07/18/23 19:43 Dose: 25 mg Amoxicillin/Clavulanate Potassium (Amoxicillin/Potassium Clav 875 Mg Tablet) 875 mg PO BID [facility] Stop: 07/21/23 09:01 Last Admin: 07/18/23 19:42 Dose: 875 mg Benztropine Mesylate (Benztropine Mesylate 0.5 Mg Tablet) 0.5 mg PO BID [facility] Last Admin: 07/18/23 19:42 Dose: 0.5 mg Capsaicin (Capsaicin 0.025% Cream 60 Gm Tube) 1 appl TOPICAL TID PRN; Protocol PRN Reason: b/l arthritic knee pain Clonazepam (Clonazepam 0.5 Mg Tablet) 0.5 mg PO BID@0900,1700 [facility] Last Admin: 07/18/23 17:46 Dose: 0.5 mg Clonidine HCl (Clonidine Hcl 0.2 Mg Tablet) 0.2 mg PO BID [facility]; Protocol Last Admin: 07/18/23 19:44 Dose: 0.2 mg Diphenhydramine HCl (Diphenhydramine Hcl 25 Mg Capsule) 50 mg PO BEDTIME [facility] Last Admin: 07/18/23 19:43 Dose: 50 mg Fluphenazine HCl (Fluphenazine Hcl 5 Mg Tablet) 5 mg PO BID [facility] Last Admin: 07/18/23 19:44 Dose: 5 mg Hydroxyzine HCl (Hydroxyzine Hcl 25 Mg Tablet) 25 mg PO Q6H PRN PRN Reason: Anxiety Last Admin: 07/18/23 12:41 Dose: 25 mg Ibuprofen (Ibuprofen 600 Mg Tablet) 600 mg PO Q8H PRN PRN Reason: Pain, Mild (Pain Scale 1-3) Last Admin: 07/17/23 10:43 Dose: 600 mg Loperamide HCl (Loperamide Hcl 2 Mg Capsule) 2 mg PO Q6H PRN PRN Reason: Loose Stool Last Admin: 07/18/23 13:43 Dose: 2 mg Magnesium Hydroxide (Milk Of Magnesia 30 Ml Oral.Susp) 30 ml PO DAILY PRN PRN Reason: Constipation Melatonin (Melatonin 3 Mg Tablet) 9 mg PO BEDTIME [facility] Last Admin: 07/18/23 19:41 Dose: 9 mg Mirtazapine (Mirtazapine 15 Mg Tablet) 45 mg PO BEDTIME [facility] Last Admin: 07/18/23 19:42 Dose: 45 mg Nicotine (Nicotine 21 Mg Patch.Td24) 21 mg TRANSDERMA DAILY PRN PRN Reason: smoking cessation Nicotine Polacrilex (Nicotine Polacrilex 2 Mg Gum) 4 mg BUCCAL Q2H PRN PRN Reason: Nicotine Cravings Nicotine Polacrilex (Nicotine Polacrilex 2 Mg Gum) 2 mg BUCCAL Q1H PRN PRN Reason: Nicotine Cravings Olanzapine (Olanzapine 5 Mg Tablet) 5 mg PO TID PRN PRN Reason: agitation Last Admin: 07/18/23 01:31 Dose: 5 mg Omeprazole (Omeprazole 20 Mg Capsule.Dr) 20 mg PO DAILY@0630 JAMES Last Admin: 07/18/23 06:09 Dose: 20 mg Senna (Sennosides 8.6 Mg Tablet) 8.6 mg PO BEDTIME PRN PRN Reason: Constipation Zolpidem Tartrate (Zolpidem Tartrate 5 Mg Tablet) 5 mg PO BEDTIME PRN PRN Reason: insomnia Last Admin: 07/18/23 19:41 Dose: 5 mg Allergies Allergies Allergy/AdvReac Type Severity Reaction Status Date / Time trazodone [TRAZODONE] Allergy Severe FACIAL Verified 07/14/23 11:17 SWELLING, swelling cat dander [CATS] Allergy Intermediate FACIAL Verified 07/14/23 11:17 ITCHING doxepin [DOXEPIN] Allergy Intermediate WEIGHT Verified 07/14/23 11:17 GAIN/LEG SWELLING Iodinated Contrast Media Allergy Intermediate ITCHING Verified 07/14/23 11:17 [IV DYE, IODINE CONTAINING CONTRAST ] nitroglycerin [NITROGLYCERIN] Allergy Unknown UNKNOWN Verified 07/14/23 11:17 tramadol [TRAMADOL] Allergy Unknown UNKNOWN, Verified 07/14/23 11:17 dry mouth ibuprofen [From MOTRIN] AdvReac Intermediate GI UPSET Verified 07/14/23 11:17 quetiapine [From SEROQUEL] AdvReac Intermediate FACIAL Verified 07/14/23 11:17 SWELLING aspirin [ASPIRIN] AdvReac Mild Stomach Verified 07/14/23 11:17 Upset Ibuprofen Allergy Unknown stomach Uncoded 07/14/23 11:17 ache IV contrast Allergy Unknown Unknown Uncoded 07/14/23 11:17 Motrin Allergy Unknown stomach Uncoded 07/14/23 11:17 pain Assessment & Plan Assessment & Plan (1) Schizoaffective disorder: Status: Acute Code(s): F25.9 - Schizoaffective disorder, unspecified (2) Tooth ache: Status: Acute Code(s): K08.89 - Other specified disorders of teeth and supporting structures Plan Patient is a 53-year-old male with history of schizoaffective disorder, depressed type, opioid/cocaine abuse in sustained remission, intermittent SI and multiple hospitalizations who self- presents for suicidal ideation in the face of relational strife. Patient reports he is feeling in a good mood until this past month when his sister, whom he says is jealous that patient has his own apartment, was being rude to him, bossy, giving him orders in his own house and eventually saying to him I hope you ... Patient said ever since she said this his depression came back and he has been feeling like no one in his family cares about him, that he is a dog to his family. Because he was upset, he stopped taking his medications for the past couple weeks and his depression continued to worsen. Although he reports having the support of other family members, his sister's comment deeply affected him and his depression continued to get worse and worse. This past week he started feeling suicidal and had thoughts to cut himself, cut his head and neck he said I was going to cut my head but a friend of his encouraged him to come to the emergency room so he self presented. Patient endorses auditory hallucinations which he says are daily and independent of mood. Denies any recent substance abuse; wants to get back on home medications. Formulation; Patient here with very similar presentation to past admissions; thankfully he is remained sober. Patient did not actually harm himself and though Depressed says SI is clearing up -patient says he buys clonazepam on the street and only takes 2 pills daily Hospital course: 07/16 patient doing better, denies SI, mood is better; no longer angry at his sister; denies AVH and patient says slept well. Asks if he can have clonazepam while here since he buys it on the streets. [employer] Officer agreed to low-dose -Patient already feeling better which is typical for past admissions; no need for medication changes at this time 07/17 cont treatment plan Plan: CV Q 15 minute checks Add clonazepam 0.5 mg b.i.d. Amitriptyline HCl (Amitriptyline Hcl 50 Mg Tablet) 100 mg PO BEDTIME JAMES Amitriptyline HCl (Amitriptyline Hcl 25 Mg Tablet) 25 mg PO BEDTIME JAMES Mirtazapine (Mirtazapine 15 Mg Tablet) 45 mg PO BEDTIME JAMES Fluphenazine HCl (Fluphenazine Hcl 5 Mg Tablet) 5 mg PO BID JAMES Benztropine Mesylate (Benztropine Mesylate 0.5 Mg Tablet) 0.5 mg PO BID JAMES Zolpidem Tartrate (Zolpidem Tartrate 5 Mg Tablet) 5 mg PO BEDTIME PRN Amoxicillin/Clavulanate Potassium 875 mg PO BID JAMES (started in ED L lower molar ttp mild swelling but no abdi abscess ) Capsaicin (Capsaicin 0.025% Cream 60 Gm Tube) 1 appl TOPICAL TID PRN; Protocol Clonidine HCl (Clonidine Hcl 0.2 Mg Tablet) 0.2 mg PO BID JAMES; Protocol Diphenhydramine HCl (Diphenhydramine Hcl 25 Mg Capsule) 50 mg PO BEDTIME JAMES Loperamide HCl (Loperamide Hcl 2 Mg Capsule) 2 mg PO Q6H PRN Magnesium Hydroxide (Milk Of Magnesia 30 Ml Oral.Susp) 30 ml PO DAILY PRN Melatonin (Melatonin 3 Mg Tablet) 9 mg PO BEDTIME JAMES Omeprazole (Omeprazole 20 Mg Capsule.Dr) 20 mg PO DAILY@0630 JAMES Senna (Sennosides 8.6 Mg Tablet) 8.6 mg PO BEDTIME PRN Reason for continued inpatient stay Substantial Risk for: inability to function and med/psych decompensation Time Spent With Patient Time: Total time managing care of this patient today ____ minutes.
[2023-07-19] MEDS: Omeprazole 20 MG CAPSULE.DR PO (06:24)
[2023-07-19] MEDS: hydrOXYzine HCL 25 MG TABLET PO ×2 (06:29→19:48)
[2023-07-19 09:00] VITALS: BP 99/63; PULSE 67; RESP 18; TEMP 36.9; O2SAT 98
[2023-07-19] MEDS: Amoxicillin/Potassium Clav 875 MG TABLET PO ×2 (09:06→19:48)
[2023-07-19] MEDS: fluPHENAZine HCl 5 MG TABLET PO ×2 (09:06→19:48)
[2023-07-19] MEDS: Benztropine Mesylate 0.5 MG TABLET PO ×2 (09:06→19:49)
[2023-07-19] MEDS: cloNIDine HCL 0.2 MG TABLET PO ×2 (09:07→19:49)
[2023-07-19] MEDS: clonazePAM 0.5 MG TABLET PO ×2 (09:07→16:28)
[2023-07-19] MEDS: Loperamide HCl 2 MG CAPSULE PO (16:57)
[2023-07-19 18:00] VITALS: BP 99/56; PULSE 72; RESP 16; TEMP 36.4; O2SAT 98
[2023-07-19] MEDS: Melatonin 3 MG TABLET 9 MG PO (19:47)
[2023-07-19] MEDS: Amitriptyline HCl 50 MG TABLET 100 MG PO (19:47)
[2023-07-19] MEDS: Mirtazapine 15 MG TABLET 45 MG PO (19:47)
[2023-07-19] MEDS: diphenhydrAMINE HCL 25 MG CAPSULE 50 MG PO (19:48)
[2023-07-19] MEDS: Zolpidem Tartrate 5 MG TABLET PO (19:49)
[2023-07-19] MEDS: Amitriptyline HCl 25 MG TABLET PO (19:49)
[2023-07-19] MEDS: OLANZapine 5 MG TABLET PO (19:49)
--- NOTE | 2023-07-19 22:58 | HO.PSYCHPN ---
Subjective Subjective Date of Service: 07/19/23 Reason For Visit: AH Interim History: THURSDAY: Patient seen out on unit. Intermittently visible. Quiet, keeps to self. No behavioral issues. Says he feels ok , denies any thoughts of giving up or thoughts to harm himself. Denies any aggressive ideation. Says he slept last night. Denies any AH or VH currently. Endorses feeling safe on unit, but presents as guarded, ?paranoid, constricted affect. No complaints or concerns. TODAY: MY mood is not good today . Patient reports feeling depressed, says he is sad and angry. Denies any SI or HI, says he just feels alone . Endorses AH which is worse at night than during the day. DEnies CT-AH, Says he slept not too much , he was encouraged to utilize the prn olanzapine. Says his legs are sore walking around with no shoes. Appetite soso Med compliant. No behavioral issues. Review of Systems Review of Systems Constitutional : No Fever, No Chills ENT/Mouth : No Ear Pain, No Nasal Congestion, No sore throat Eyes: No Eye Pain, No Swelling, No Redness Cardiovascular : No Chest Pain, No SOB Respiratory : No Cough, No Sputum, No Dyspnea Gastrointestinal : No Nausea, No Vomiting, No Diarrhea, No Hematochezia, No Melena Genitourinary : No Dysuria, No Urinary Frequency, No Hematuria Musculoskeletal : No Myalgias Skin : No Skin Lesions, No rash Neuro : No Weakness, No Numbness, No Paresthesias, No Dizziness, No Headache Psych : positive Anxiety, positive Depression, positive SI no HI, pos AH, no VH Heme/Lymph: No Lymphadenopathy Endocrine : No Polyuria, No Polydipsia All other systems reviewed and are negative Mental Status Exam Mental Status Exam Narrative: Pt is alert and oriented; behavior is cooperative, calm; patient is not in distress; dressed in casual attire with adequate hygiene; mood is described as so-so and affect constricted; eye contact appropriate; Speech is normal rate, volume and prosody and not pressured; no psychomotor agitation/retardation present; thought process is organized and goal directed; Thought content is on treatment; otherwise pertinent to relevant topics and without any delusional content, paranoid ideations or grandiosity; no SI; no HI. Denies AVH Patients insight and judgment impaired but improving Diagnostics Vital Signs (24Hr): Vital Signs - 24 hr 07/19/23 09:00 07/19/23 18:00 Temperature 98.5 F 97.6 F Pulse Rate 67 72 Respiratory Rate 18 16 Blood Pressure 99/63 99/56 L Pulse Oximetry 98 98 Oxygen Delivery Method Room Air Room Air BMI result Body Mass Index 23.9 Labs 07/14/23 11:43 07/14/23 11:43 Medications Medications Current Medications Acetaminophen (Acetaminophen 325 Mg Tablet) 650 mg PO Q6H PRN PRN Reason: Headache/Pain Mild Scale (1-3) Last Admin: 07/15/23 17:18 Dose: 650 mg Al Hydroxide/Mg Hydroxide (Magnesium Hydrox/Alum Hydrox 30 Ml Oral.Susp) 30 ml PO Q6H PRN PRN Reason: Heartburn/Nausea Amitriptyline HCl (Amitriptyline Hcl 50 Mg Tablet) 100 mg PO BEDTIME [facility] Last Admin: 07/19/23 19:47 Dose: 100 mg Amitriptyline HCl (Amitriptyline Hcl 25 Mg Tablet) 25 mg PO BEDTIME JAMES Last Admin: 07/19/23 19:49 Dose: 25 mg Amoxicillin/Clavulanate Potassium (Amoxicillin/Potassium Clav 875 Mg Tablet) 875 mg PO BID JAMES Stop: 07/21/23 09:01 Last Admin: 07/19/23 19:48 Dose: 875 mg Benztropine Mesylate (Benztropine Mesylate 0.5 Mg Tablet) 0.5 mg PO BID [facility] Last Admin: 07/19/23 19:49 Dose: 0.5 mg Capsaicin (Capsaicin 0.025% Cream 60 Gm Tube) 1 appl TOPICAL TID PRN; Protocol PRN Reason: b/l arthritic knee pain Clonazepam (Clonazepam 0.5 Mg Tablet) 0.5 mg PO BID@0900,1700 [facility] Last Admin: 07/19/23 16:28 Dose: 0.5 mg Clonidine HCl (Clonidine Hcl 0.2 Mg Tablet) 0.2 mg PO BID [facility]; Protocol Last Admin: 07/19/23 19:49 Dose: 0.2 mg Diphenhydramine HCl (Diphenhydramine Hcl 25 Mg Capsule) 50 mg PO BEDTIME JAMES Last Admin: 07/19/23 19:48 Dose: 50 mg Fluphenazine HCl (Fluphenazine Hcl 5 Mg Tablet) 5 mg PO BID [facility] Last Admin: 07/19/23 19:48 Dose: 5 mg Hydroxyzine HCl (Hydroxyzine Hcl 25 Mg Tablet) 25 mg PO Q6H PRN PRN Reason: Anxiety Last Admin: 07/19/23 19:48 Dose: 25 mg Ibuprofen (Ibuprofen 600 Mg Tablet) 600 mg PO Q8H PRN PRN Reason: Pain, Mild (Pain Scale 1-3) Last Admin: 07/17/23 10:43 Dose: 600 mg Loperamide HCl (Loperamide Hcl 2 Mg Capsule) 2 mg PO Q6H PRN PRN Reason: Loose Stool Last Admin: 07/19/23 16:57 Dose: 2 mg Magnesium Hydroxide (Milk Of Magnesia 30 Ml Oral.Susp) 30 ml PO DAILY PRN PRN Reason: Constipation Melatonin (Melatonin 3 Mg Tablet) 9 mg PO BEDTIME [facility] Last Admin: 07/19/23 19:47 Dose: 9 mg Mirtazapine (Mirtazapine 15 Mg Tablet) 45 mg PO BEDTIME [facility] Last Admin: 07/19/23 19:47 Dose: 45 mg Nicotine (Nicotine 21 Mg Patch.Td24) 21 mg TRANSDERMA DAILY PRN PRN Reason: smoking cessation Nicotine Polacrilex (Nicotine Polacrilex 2 Mg Gum) 4 mg BUCCAL Q2H PRN PRN Reason: Nicotine Cravings Nicotine Polacrilex (Nicotine Polacrilex 2 Mg Gum) 2 mg BUCCAL Q1H PRN PRN Reason: Nicotine Cravings Olanzapine (Olanzapine 5 Mg Tablet) 5 mg PO TID PRN PRN Reason: agitation Last Admin: 07/19/23 19:49 Dose: 5 mg Omeprazole (Omeprazole 20 Mg Capsule.Dr) 20 mg PO DAILY@0630 [facility] Last Admin: 07/19/23 06:24 Dose: 20 mg Senna (Sennosides 8.6 Mg Tablet) 8.6 mg PO BEDTIME PRN PRN Reason: Constipation Zolpidem Tartrate (Zolpidem Tartrate 5 Mg Tablet) 5 mg PO BEDTIME PRN PRN Reason: insomnia Last Admin: 07/19/23 19:49 Dose: 5 mg Allergies Allergies Allergy/AdvReac Type Severity Reaction Status Date / Time trazodone [TRAZODONE] Allergy Severe FACIAL Verified 07/14/23 11:17 SWELLING, swelling cat dander [CATS] Allergy Intermediate FACIAL Verified 07/14/23 11:17 ITCHING doxepin [DOXEPIN] Allergy Intermediate WEIGHT Verified 07/14/23 11:17 GAIN/LEG SWELLING Iodinated Contrast Media Allergy Intermediate ITCHING Verified 07/14/23 11:17 [IV DYE, IODINE CONTAINING CONTRAST ] nitroglycerin [NITROGLYCERIN] Allergy Unknown UNKNOWN Verified 07/14/23 11:17 tramadol [TRAMADOL] Allergy Unknown UNKNOWN, Verified 07/14/23 11:17 dry mouth ibuprofen [From MOTRIN] AdvReac Intermediate GI UPSET Verified 07/14/23 11:17 quetiapine [From SEROQUEL] AdvReac Intermediate FACIAL Verified 07/14/23 11:17 SWELLING aspirin [ASPIRIN] AdvReac Mild Stomach Verified 07/14/23 11:17 Upset Ibuprofen Allergy Unknown stomach Uncoded 07/14/23 11:17 ache IV contrast Allergy Unknown Unknown Uncoded 07/14/23 11:17 Motrin Allergy Unknown stomach Uncoded 07/14/23 11:17 pain Assessment & Plan Assessment & Plan (1) Schizoaffective disorder: Status: Acute Code(s): F25.9 - Schizoaffective disorder, unspecified (2) Tooth ache: Status: Acute Code(s): K08.89 - Other specified disorders of teeth and supporting structures Plan Patient is a 53-year-old male with history of schizoaffective disorder, depressed type, opioid/cocaine abuse in sustained remission, intermittent SI and multiple hospitalizations who self- presents for suicidal ideation in the face of relational strife. Patient reports he is feeling in a good mood until this past month when his sister, whom he says is jealous that patient has his own apartment, was being rude to him, bossy, giving him orders in his own house and eventually saying to him I hope you ... Patient said ever since she said this his depression came back and he has been feeling like no one in his family cares about him, that he is a dog to his family. Because he was upset, he stopped taking his medications for the past couple weeks and his depression continued to worsen. Although he reports having the support of other family members, his sister's comment deeply affected him and his depression continued to get worse and worse. This past week he started feeling suicidal and had thoughts to cut himself, cut his head and neck he said I was going to cut my head but a friend of his encouraged him to come to the emergency room so he self presented. Patient endorses auditory hallucinations which he says are daily and independent of mood. Denies any recent substance abuse; wants to get back on home medications. Formulation; Patient here with very similar presentation to past admissions; thankfully he is remained sober. Patient did not actually harm himself and though Depressed says SI is clearing up -patient says he buys clonazepam on the street and only takes 2 pills daily Hospital course: 07/16 patient doing better, denies SI, mood is better; no longer angry at his sister; denies AVH and patient says slept well. Asks if he can have clonazepam while here since he buys it on the streets. [employer] Director agreed to low-dose -Patient already feeling better which is typical for past admissions; no need for medication changes at this time Plan: CV Q 15 minute checks Add clonazepam 0.5 mg b.i.d. Amitriptyline HCl (Amitriptyline Hcl 50 Mg Tablet) 100 mg PO BEDTIME JAMES Amitriptyline HCl (Amitriptyline Hcl 25 Mg Tablet) 25 mg PO BEDTIME JAMES Mirtazapine (Mirtazapine 15 Mg Tablet) 45 mg PO BEDTIME JAMES Fluphenazine HCl (Fluphenazine Hcl 5 Mg Tablet) 5 mg PO BID JAMES Benztropine Mesylate (Benztropine Mesylate 0.5 Mg Tablet) 0.5 mg PO BID JAMES Zolpidem Tartrate (Zolpidem Tartrate 5 Mg Tablet) 5 mg PO BEDTIME PRN Amoxicillin/Clavulanate Potassium 875 mg PO BID JAMES (started in ED L lower molar ttp mild swelling but no abdi abscess ) Capsaicin (Capsaicin 0.025% Cream 60 Gm Tube) 1 appl TOPICAL TID PRN; Protocol Clonidine HCl (Clonidine Hcl 0.2 Mg Tablet) 0.2 mg PO BID JAMES; Protocol Diphenhydramine HCl (Diphenhydramine Hcl 25 Mg Capsule) 50 mg PO BEDTIME JAMES Loperamide HCl (Loperamide Hcl 2 Mg Capsule) 2 mg PO Q6H PRN Magnesium Hydroxide (Milk Of Magnesia 30 Ml Oral.Susp) 30 ml PO DAILY PRN Melatonin (Melatonin 3 Mg Tablet) 9 mg PO BEDTIME JAMES Omeprazole (Omeprazole 20 Mg Capsule.Dr) 20 mg PO DAILY@0630 [facility] Senna (Sennosides 8.6 Mg Tablet) 8.6 mg PO BEDTIME PRN Reason for continued inpatient stay Substantial Risk for: rapid decompensation and med/psych decompensation Time Spent With Patient Time: Total time managing care of this patient today ____ minutes.
[2023-07-20] MEDS: Loperamide HCl 2 MG CAPSULE PO ×4 (00:56→20:37)
[2023-07-20] MEDS: Omeprazole 20 MG CAPSULE.DR PO (06:23)
[2023-07-20 08:03] VITALS: BP 122/69; PULSE 79; RESP 18; TEMP 36.4; O2SAT 100
[2023-07-20] MEDS: fluPHENAZine HCl 5 MG TABLET PO ×2 (08:32→20:35)
[2023-07-20] MEDS: cloNIDine HCL 0.2 MG TABLET PO ×2 (08:33→20:36)
[2023-07-20] MEDS: clonazePAM 0.5 MG TABLET PO ×2 (08:33→17:04)
[2023-07-20] MEDS: Amoxicillin/Potassium Clav 875 MG TABLET PO ×2 (08:33→20:36)
[2023-07-20] MEDS: Benztropine Mesylate 0.5 MG TABLET PO ×2 (08:34→20:27)
--- NOTE | 2023-07-20 09:54 | HO.PSYCHPN ---
Subjective Subjective Date of Service: 07/20/23 Reason For Visit: Subjective Notes: Conditional Voluntary Medical Problems Affecting Mental Status: Yes (having diarrhea after starting abiotics for dental problem) Interim History: 53 yo HM who doesn't really want to talk to much then comes back to ask me if he can get clonazepam- This patient know to provider over many years and this is always what it comes down to - he says it calms his body can't explain it otherwise- Up all night with diarrhea not responding to immodium- discussed request stool sample for cdiff Medication Compliance: Yes Side effects from medications: Yes (diarrhea from abiotic) Attending Groups: No Review of Systems Acute medical concerns: Yes r/o cdiff Medical Review of Systems: unchanged Mental Status Exam Mental Status Exam Patient Appearance: Well Grooomed Patient Orientation: Person, Place, Time and Situation Level of Consciousness: Awake Patient Behavior: Appropriate and Dependent Mood Description: Anxious Affect Description: Sad and Apprehensive Patient Cognition Impaired: No Ability to Follow Directions: Fair Speech Pattern: Clear Hallucinations: Auditory Thought Process: Intact Thought Content: positive for Perseveration Depressive Symptoms: Increased Anxiety and Difficulty Sleeping Abnormal Motor Activity Signs and Symptoms: Restlessness Judgement: Fair Diagnostics Vital Signs (24Hr): Vital Signs - 24 hr 07/19/23 18:00 07/20/23 08:03 Temperature 97.6 F 97.6 F Pulse Rate 72 79 Respiratory Rate 16 18 Blood Pressure 99/56 L 122/69 Pulse Oximetry 98 100 Oxygen Delivery Method Room Air Room Air BMI result Body Mass Index 23.9 Labs 07/14/23 11:43 07/14/23 11:43 Medications Medications Current Medications Acetaminophen (Acetaminophen 325 Mg Tablet) 650 mg PO Q6H PRN PRN Reason: Headache/Pain Mild Scale (1-3) Last Admin: 07/15/23 17:18 Dose: 650 mg Al Hydroxide/Mg Hydroxide (Magnesium Hydrox/Alum Hydrox 30 Ml Oral.Susp) 30 ml PO Q6H PRN PRN Reason: Heartburn/Nausea Amitriptyline HCl (Amitriptyline Hcl 50 Mg Tablet) 100 mg PO BEDTIME JAMES Last Admin: 07/19/23 19:47 Dose: 100 mg Amitriptyline HCl (Amitriptyline Hcl 25 Mg Tablet) 25 mg PO BEDTIME JAMES Last Admin: 07/19/23 19:49 Dose: 25 mg Amoxicillin/Clavulanate Potassium (Amoxicillin/Potassium Clav 875 Mg Tablet) 875 mg PO BID [facility] Stop: 07/21/23 09:01 Last Admin: 07/20/23 08:33 Dose: 875 mg Benztropine Mesylate (Benztropine Mesylate 0.5 Mg Tablet) 0.5 mg PO BID [facility] Last Admin: 07/20/23 08:34 Dose: 0.5 mg Capsaicin (Capsaicin 0.025% Cream 60 Gm Tube) 1 appl TOPICAL TID PRN; Protocol PRN Reason: b/l arthritic knee pain Clonazepam (Clonazepam 0.5 Mg Tablet) 0.5 mg PO BID@0900,1700 [facility] Last Admin: 07/20/23 08:33 Dose: 0.5 mg Clonidine HCl (Clonidine Hcl 0.2 Mg Tablet) 0.2 mg PO BID [facility]; Protocol Last Admin: 07/20/23 08:33 Dose: 0.2 mg Diphenhydramine HCl (Diphenhydramine Hcl 25 Mg Capsule) 50 mg PO BEDTIME [facility] Last Admin: 07/19/23 19:48 Dose: 50 mg Fluphenazine HCl (Fluphenazine Hcl 5 Mg Tablet) 5 mg PO BID [facility] Last Admin: 07/20/23 08:32 Dose: 5 mg Hydroxyzine HCl (Hydroxyzine Hcl 25 Mg Tablet) 25 mg PO Q6H PRN PRN Reason: Anxiety Last Admin: 07/19/23 19:48 Dose: 25 mg Ibuprofen (Ibuprofen 600 Mg Tablet) 600 mg PO Q8H PRN PRN Reason: Pain, Mild (Pain Scale 1-3) Last Admin: 07/17/23 10:43 Dose: 600 mg Loperamide HCl (Loperamide Hcl 2 Mg Capsule) 2 mg PO Q6H PRN PRN Reason: Loose Stool Last Admin: 07/20/23 08:33 Dose: 2 mg Magnesium Hydroxide (Milk Of Magnesia 30 Ml Oral.Susp) 30 ml PO DAILY PRN PRN Reason: Constipation Melatonin (Melatonin 3 Mg Tablet) 9 mg PO BEDTIME [facility] Last Admin: 07/19/23 19:47 Dose: 9 mg Mirtazapine (Mirtazapine 15 Mg Tablet) 45 mg PO BEDTIME [facility] Last Admin: 07/19/23 19:47 Dose: 45 mg Nicotine (Nicotine 21 Mg Patch.Td24) 21 mg TRANSDERMA DAILY PRN PRN Reason: smoking cessation Nicotine Polacrilex (Nicotine Polacrilex 2 Mg Gum) 4 mg BUCCAL Q2H PRN PRN Reason: Nicotine Cravings Nicotine Polacrilex (Nicotine Polacrilex 2 Mg Gum) 2 mg BUCCAL Q1H PRN PRN Reason: Nicotine Cravings Olanzapine (Olanzapine 5 Mg Tablet) 5 mg PO TID PRN PRN Reason: agitation Last Admin: 07/19/23 19:49 Dose: 5 mg Omeprazole (Omeprazole 20 Mg Capsule.Dr) 20 mg PO DAILY@0630 JAMES Last Admin: 07/20/23 06:23 Dose: 20 mg Senna (Sennosides 8.6 Mg Tablet) 8.6 mg PO BEDTIME PRN PRN Reason: Constipation Zolpidem Tartrate (Zolpidem Tartrate 5 Mg Tablet) 5 mg PO BEDTIME PRN PRN Reason: insomnia Last Admin: 07/19/23 19:49 Dose: 5 mg Allergies Allergies Allergy/AdvReac Type Severity Reaction Status Date / Time trazodone [TRAZODONE] Allergy Severe FACIAL Verified 07/14/23 11:17 SWELLING, swelling cat dander [CATS] Allergy Intermediate FACIAL Verified 07/14/23 11:17 ITCHING doxepin [DOXEPIN] Allergy Intermediate WEIGHT Verified 07/14/23 11:17 GAIN/LEG SWELLING Iodinated Contrast Media Allergy Intermediate ITCHING Verified 07/14/23 11:17 [IV DYE, IODINE CONTAINING CONTRAST ] nitroglycerin [NITROGLYCERIN] Allergy Unknown UNKNOWN Verified 07/14/23 11:17 tramadol [TRAMADOL] Allergy Unknown UNKNOWN, Verified 07/14/23 11:17 dry mouth ibuprofen [From MOTRIN] AdvReac Intermediate GI UPSET Verified 07/14/23 11:17 quetiapine [From SEROQUEL] AdvReac Intermediate FACIAL Verified 07/14/23 11:17 SWELLING aspirin [ASPIRIN] AdvReac Mild Stomach Verified 07/14/23 11:17 Upset Ibuprofen Allergy Unknown stomach Uncoded 07/14/23 11:17 ache IV contrast Allergy Unknown Unknown Uncoded 07/14/23 11:17 Motrin Allergy Unknown stomach Uncoded 07/14/23 11:17 pain Assessment & Plan Assessment & Plan (1) Schizoaffective disorder: Status: Acute Code(s): F25.9 - Schizoaffective disorder, unspecified (2) Tooth ache: Status: Acute Code(s): K08.89 - Other specified disorders of teeth and supporting structures Plan Patient is a 53-year-old male with history of schizoaffective disorder, depressed type, opioid/cocaine abuse in sustained remission, intermittent SI and multiple hospitalizations who self- presents for suicidal ideation in the face of relational strife. Patient reports he is feeling in a good mood until this past month when his sister, whom he says is jealous that patient has his own apartment, was being rude to him, bossy, giving him orders in his own house and eventually saying to him I hope you ... Patient said ever since she said this his depression came back and he has been feeling like no one in his family cares about him, that he is a dog to his family. Because he was upset, he stopped taking his medications for the past couple weeks and his depression continued to worsen. Although he reports having the support of other family members, his sister's comment deeply affected him and his depression continued to get worse and worse. This past week he started feeling suicidal and had thoughts to cut himself, cut his head and neck he said I was going to cut my head but a friend of his encouraged him to come to the emergency room so he self presented. Patient endorses auditory hallucinations which he says are daily and independent of mood. Denies any recent substance abuse; wants to get back on home medications. Formulation; Patient here with very similar presentation to past admissions; thankfully he is remained sober. Patient did not actually harm himself and though Depressed says SI is clearing up -patient says he buys clonazepam on the street and only takes 2 pills daily Hospital course: 07/16 patient doing better, denies SI, mood is better; no longer angry at his sister; denies AVH and patient says slept well. Asks if he can have clonazepam while here since he buys it on the streets. [place] [employer] agreed to low-dose -Patient already feeling better which is typical for past admissions; no need for medication changes at this time Plan: CV Q 15 minute checks Add clonazepam 0.5 mg b.i.d. Amitriptyline HCl (Amitriptyline Hcl 50 Mg Tablet) 100 mg PO BEDTIME JAMES Amitriptyline HCl (Amitriptyline Hcl 25 Mg Tablet) 25 mg PO BEDTIME JAMES Mirtazapine (Mirtazapine 15 Mg Tablet) 45 mg PO BEDTIME JAMES Fluphenazine HCl (Fluphenazine Hcl 5 Mg Tablet) 5 mg PO BID JAMES Benztropine Mesylate (Benztropine Mesylate 0.5 Mg Tablet) 0.5 mg PO BID JAMES Zolpidem Tartrate (Zolpidem Tartrate 5 Mg Tablet) 5 mg PO BEDTIME PRN Amoxicillin/Clavulanate Potassium 875 mg PO BID JAMES (started in ED L lower molar ttp mild swelling but no abdi abscess ) Capsaicin (Capsaicin 0.025% Cream 60 Gm Tube) 1 appl TOPICAL TID PRN; Protocol Clonidine HCl (Clonidine Hcl 0.2 Mg Tablet) 0.2 mg PO BID JAMES; Protocol Diphenhydramine HCl (Diphenhydramine Hcl 25 Mg Capsule) 50 mg PO BEDTIME JAMES Loperamide HCl (Loperamide Hcl 2 Mg Capsule) 2 mg PO Q6H PRN Magnesium Hydroxide (Milk Of Magnesia 30 Ml Oral.Susp) 30 ml PO DAILY PRN Melatonin (Melatonin 3 Mg Tablet) 9 mg PO BEDTIME JAMES Omeprazole (Omeprazole 20 Mg Capsule.Dr) 20 mg PO DAILY@0630 JAMES Senna (Sennosides 8.6 Mg Tablet) 8.6 mg PO BEDTIME PRN 07/20/23- pt hx asks for benzodiazepines over all the years I have known him, but he doesn't have consistent outpt providers to follow up with this- and there may have been some prior hx of sub use- or AUD Patient educated on: medication risk/benefits and medical condition Informed Consent: understands and further education needed Reason for continued inpatient stay Substantial Risk for: rapid decompensation and med/psych decompensation Time Spent With Patient Time: Total time managing care of this patient today ____ minutes.
[2023-07-20 15:28] LABS: CDiff Gene PCR NEGATIVE (Negative)
[2023-07-20 18:00] VITALS: BP 109/62; PULSE 88; TEMP 37.1; O2SAT 99
[2023-07-20] MEDS: Amitriptyline HCl 25 MG TABLET PO (20:27)
[2023-07-20] MEDS: Zolpidem Tartrate 5 MG TABLET PO (20:27)
[2023-07-20] MEDS: Melatonin 3 MG TABLET 9 MG PO (20:27)
[2023-07-20] MEDS: hydrOXYzine HCL 25 MG TABLET PO (20:36)
[2023-07-20] MEDS: Mirtazapine 15 MG TABLET 45 MG PO (20:36)
[2023-07-20] MEDS: diphenhydrAMINE HCL 25 MG CAPSULE 50 MG PO (20:36)
[2023-07-20] MEDS: OLANZapine 5 MG TABLET PO (20:37)
[2023-07-20] MEDS: Amitriptyline HCl 50 MG TABLET 100 MG PO (20:37)
[2023-07-21] MEDS: OLANZapine 5 MG TABLET PO ×3 (02:27→20:21)
[2023-07-21] MEDS: Omeprazole 20 MG CAPSULE.DR PO (06:54)
[2023-07-21 08:00] VITALS: BP 115/61; PULSE 75; RESP 18; TEMP 36.4; O2SAT 99
[2023-07-21] MEDS: Benztropine Mesylate 0.5 MG TABLET PO ×2 (08:18→20:20)
[2023-07-21] MEDS: Amoxicillin/Potassium Clav 875 MG TABLET PO (08:18)
[2023-07-21] MEDS: clonazePAM 0.5 MG TABLET PO ×2 (08:18→16:46)
[2023-07-21] MEDS: cloNIDine HCL 0.2 MG TABLET PO ×2 (08:18→20:21)
[2023-07-21] MEDS: fluPHENAZine HCl 5 MG TABLET PO ×2 (08:18→20:21)
[2023-07-21] MEDS: Loperamide HCl 2 MG CAPSULE PO (08:25)
[2023-07-21] MEDS: hydrOXYzine HCL 25 MG TABLET PO ×2 (12:16→20:21)
[2023-07-21 17:08] VITALS: BP 111/70; PULSE 74; TEMP 36.8; O2SAT 98
[2023-07-21] MEDS: Loperamide HCl 2 MG CAPSULE 4 MG PO (17:59)
--- NOTE | 2023-07-21 18:38 | HO.PSYCHPN ---
Subjective Subjective Date of Service: 07/21/23 Reason For Visit: Interim History: Met with patient; discussed with team Patient reports continued depression anxiety but overall feeling much better; no SI. He complains of diarrhea which occurs during the day and even over the night, likely due to antibiotic. [employer]er agrees to increase Imodium dose Mental Status Exam Mental Status Exam Narrative: Pt is alert and oriented; behavior is cooperative, calm; patient is not in distress; dressed in casual attire with adequate hygiene; mood is described as ok and affect constricted; eye contact appropriate; Speech is normal rate, volume and prosody and not pressured; no psychomotor agitation/retardation present; thought process is organized and goal directed; Thought content is on treatment; otherwise pertinent to relevant topics and without any delusional content, paranoid ideations or grandiosity; no SI; no HI. Denies AVH Patients insight and judgment fair, at baseline Diagnostics Vital Signs (24Hr): Vital Signs - 24 hr 07/21/23 08:00 07/21/23 17:08 Temperature 97.6 F 98.3 F Pulse Rate 75 74 Respiratory Rate 18 Blood Pressure 115/61 111/70 Pulse Oximetry 99 98 Oxygen Delivery Method Room Air Room Air BMI result Body Mass Index 23.9 Labs 07/14/23 11:43 07/14/23 11:43 Labs: Laboratory Results - last 48 hr 07/20/23 13:03 C. difficile Tox B Gene NEGATIVE Medications Medications Current Medications Acetaminophen (Acetaminophen 325 Mg Tablet) 650 mg PO Q6H PRN PRN Reason: Headache/Pain Mild Scale (1-3) Last Admin: 07/15/23 17:18 Dose: 650 mg Al Hydroxide/Mg Hydroxide (Magnesium Hydrox/Alum Hydrox 30 Ml Oral.Susp) 30 ml PO Q6H PRN PRN Reason: Heartburn/Nausea Amitriptyline HCl (Amitriptyline Hcl 50 Mg Tablet) 100 mg PO BEDTIME JAMES Last Admin: 07/20/23 20:37 Dose: 100 mg Amitriptyline HCl (Amitriptyline Hcl 25 Mg Tablet) 25 mg PO BEDTIME JAMES Last Admin: 07/20/23 20:27 Dose: 25 mg Benztropine Mesylate (Benztropine Mesylate 0.5 Mg Tablet) 0.5 mg PO BID [facility] Last Admin: 07/21/23 08:18 Dose: 0.5 mg Capsaicin (Capsaicin 0.025% Cream 60 Gm Tube) 1 appl TOPICAL TID PRN; Protocol PRN Reason: b/l arthritic knee pain Clonazepam (Clonazepam 0.5 Mg Tablet) 0.5 mg PO BID@0900,1700 [facility] Last Admin: 07/21/23 16:46 Dose: 0.5 mg Clonidine HCl (Clonidine Hcl 0.2 Mg Tablet) 0.2 mg PO BID [facility]; Protocol Last Admin: 07/21/23 08:18 Dose: 0.2 mg Diphenhydramine HCl (Diphenhydramine Hcl 25 Mg Capsule) 50 mg PO BEDTIME [facility] Last Admin: 07/20/23 20:36 Dose: 50 mg Fluphenazine HCl (Fluphenazine Hcl 5 Mg Tablet) 5 mg PO BID [facility] Last Admin: 07/21/23 08:18 Dose: 5 mg Hydroxyzine HCl (Hydroxyzine Hcl 25 Mg Tablet) 25 mg PO Q6H PRN PRN Reason: Anxiety Last Admin: 07/21/23 12:16 Dose: 25 mg Ibuprofen (Ibuprofen 600 Mg Tablet) 600 mg PO Q8H PRN PRN Reason: Pain, Mild (Pain Scale 1-3) Last Admin: 07/17/23 10:43 Dose: 600 mg Loperamide HCl (Loperamide Hcl 2 Mg Capsule) 2 mg PO Q6H PRN PRN Reason: Loose Stool Last Admin: 07/21/23 08:25 Dose: 2 mg Loperamide HCl (Loperamide Hcl 2 Mg Capsule) 4 mg PO BEDTIME [facility] Stop: 07/22/23 23:50 Last Admin: 07/21/23 17:59 Dose: 4 mg Magnesium Hydroxide (Milk Of Magnesia 30 Ml Oral.Susp) 30 ml PO DAILY PRN PRN Reason: Constipation Melatonin (Melatonin 3 Mg Tablet) 9 mg PO BEDTIME [facility] Last Admin: 07/20/23 20:27 Dose: 9 mg Mirtazapine (Mirtazapine 15 Mg Tablet) 45 mg PO BEDTIME [facility] Last Admin: 07/20/23 20:36 Dose: 45 mg Nicotine (Nicotine 21 Mg Patch.Td24) 21 mg TRANSDERMA DAILY PRN PRN Reason: smoking cessation Nicotine Polacrilex (Nicotine Polacrilex 2 Mg Gum) 4 mg BUCCAL Q2H PRN PRN Reason: Nicotine Cravings Nicotine Polacrilex (Nicotine Polacrilex 2 Mg Gum) 2 mg BUCCAL Q1H PRN PRN Reason: Nicotine Cravings Olanzapine (Olanzapine 5 Mg Tablet) 5 mg PO TID PRN PRN Reason: agitation Last Admin: 07/21/23 12:16 Dose: 5 mg Omeprazole (Omeprazole 20 Mg Capsule.Dr) 20 mg PO DAILY@0630 JAMES Last Admin: 07/21/23 06:54 Dose: 20 mg Senna (Sennosides 8.6 Mg Tablet) 8.6 mg PO BEDTIME PRN PRN Reason: Constipation Zolpidem Tartrate (Zolpidem Tartrate 5 Mg Tablet) 5 mg PO BEDTIME PRN PRN Reason: insomnia Last Admin: 07/20/23 20:27 Dose: 5 mg Allergies Allergies Allergy/AdvReac Type Severity Reaction Status Date / Time trazodone [TRAZODONE] Allergy Severe FACIAL Verified 07/14/23 11:17 SWELLING, swelling cat dander [CATS] Allergy Intermediate FACIAL Verified 07/14/23 11:17 ITCHING doxepin [DOXEPIN] Allergy Intermediate WEIGHT Verified 07/14/23 11:17 GAIN/LEG SWELLING Iodinated Contrast Media Allergy Intermediate ITCHING Verified 07/14/23 11:17 [IV DYE, IODINE CONTAINING CONTRAST ] nitroglycerin [NITROGLYCERIN] Allergy Unknown UNKNOWN Verified 07/14/23 11:17 tramadol [TRAMADOL] Allergy Unknown UNKNOWN, Verified 07/14/23 11:17 dry mouth ibuprofen [From MOTRIN] AdvReac Intermediate GI UPSET Verified 07/14/23 11:17 quetiapine [From SEROQUEL] AdvReac Intermediate FACIAL Verified 07/14/23 11:17 SWELLING aspirin [ASPIRIN] AdvReac Mild Stomach Verified 07/14/23 11:17 Upset Ibuprofen Allergy Unknown stomach Uncoded 07/14/23 11:17 ache IV contrast Allergy Unknown Unknown Uncoded 07/14/23 11:17 Motrin Allergy Unknown stomach Uncoded 07/14/23 11:17 pain Assessment & Plan Assessment & Plan (1) Schizoaffective disorder: Status: Acute Code(s): F25.9 - Schizoaffective disorder, unspecified (2) Tooth ache: Status: Acute Code(s): K08.89 - Other specified disorders of teeth and supporting structures Plan Patient is a 53-year-old male with history of schizoaffective disorder, depressed type, opioid/cocaine abuse in sustained remission, intermittent SI and multiple hospitalizations who self- presents for suicidal ideation in the face of relational strife. Patient reports he is feeling in a good mood until this past month when his sister, whom he says is jealous that patient has his own apartment, was being rude to him, bossy, giving him orders in his own house and eventually saying to him I hope you ... Patient said ever since she said this his depression came back and he has been feeling like no one in his family cares about him, that he is a dog to his family. Because he was upset, he stopped taking his medications for the past couple weeks and his depression continued to worsen. Although he reports having the support of other family members, his sister's comment deeply affected him and his depression continued to get worse and worse. This past week he started feeling suicidal and had thoughts to cut himself, cut his head and neck he said I was going to cut my head but a friend of his encouraged him to come to the emergency room so he self presented. Patient endorses auditory hallucinations which he says are daily and independent of mood. Denies any recent substance abuse; wants to get back on home medications. Formulation; Patient here with very similar presentation to past admissions; thankfully he is remained sober. Patient did not actually harm himself and though Depressed says SI is clearing up -patient says he buys clonazepam on the street and only takes 2 pills daily Hospital course: 07/16 patient doing better, denies SI, mood is better; no longer angry at his sister; denies AVH and patient says slept well. Asks if he can have clonazepam while here since he buys it on the streets. [employer]er agreed to low-dose -Patient already feeling better which is typical for past admissions; no need for medication changes at this time 07/20/23- pt hx asks for benzodiazepines over all the years I have known him, but he doesn't have consistent outpt providers to follow up with this- and there may have been some prior hx of sub use- or AUD 07/20 patient seems to be at baseline; denies any SI; intermittent AH but again at baseline. Feels somewhat ready for discharge to a step-down respite Plan: CV Q 15 minute checks Added clonazepam 0.5 mg b.i.d. since patient by this on the street and takes it regularly Amitriptyline HCl (Amitriptyline Hcl 50 Mg Tablet) 100 mg PO BEDTIME JAMES Amitriptyline HCl (Amitriptyline Hcl 25 Mg Tablet) 25 mg PO BEDTIME JAMES Mirtazapine (Mirtazapine 15 Mg Tablet) 45 mg PO BEDTIME JAMES Fluphenazine HCl (Fluphenazine Hcl 5 Mg Tablet) 5 mg PO BID JAMES Benztropine Mesylate (Benztropine Mesylate 0.5 Mg Tablet) 0.5 mg PO BID JAMES Zolpidem Tartrate (Zolpidem Tartrate 5 Mg Tablet) 5 mg PO BEDTIME PRN Amoxicillin/Clavulanate Potassium 875 mg PO BID JAMES (started in ED L lower molar ttp mild swelling but no abdi abscess ) Capsaicin (Capsaicin 0.025% Cream 60 Gm Tube) 1 appl TOPICAL TID PRN; Protocol Clonidine HCl (Clonidine Hcl 0.2 Mg Tablet) 0.2 mg PO BID JAMES; Protocol Diphenhydramine HCl (Diphenhydramine Hcl 25 Mg Capsule) 50 mg PO BEDTIME JAMES Loperamide HCl (Loperamide Hcl 2 Mg Capsule) 2 mg PO Q6H PRN Magnesium Hydroxide (Milk Of Magnesia 30 Ml Oral.Susp) 30 ml PO DAILY PRN Melatonin (Melatonin 3 Mg Tablet) 9 mg PO BEDTIME JAMES Omeprazole (Omeprazole 20 Mg Capsule.Dr) 20 mg PO DAILY@0630 JAMES Senna (Sennosides 8.6 Mg Tablet) 8.6 mg PO BEDTIME PRN Patient educated on: diagnosis, medication risk/benefits and medical condition Informed Consent: understands Reason for continued inpatient stay Substantial Risk for: stable for discharge and rapid decompensation Time Spent With Patient Time: Total time managing care of this patient today ____ minutes.
[2023-07-21] MEDS: Melatonin 3 MG TABLET 9 MG PO (20:18)
[2023-07-21] MEDS: diphenhydrAMINE HCL 25 MG CAPSULE 50 MG PO (20:19)
[2023-07-21] MEDS: Amitriptyline HCl 25 MG TABLET PO (20:19)
[2023-07-21] MEDS: Mirtazapine 15 MG TABLET 45 MG PO (20:20)
[2023-07-21] MEDS: Amitriptyline HCl 50 MG TABLET 100 MG PO (20:20)
[2023-07-21] MEDS: Zolpidem Tartrate 5 MG TABLET PO (20:29)
[2023-07-22] MEDS: Loperamide HCl 2 MG CAPSULE PO (04:28)
[2023-07-22] MEDS: hydrOXYzine HCL 25 MG TABLET PO ×3 (04:28→20:02)
[2023-07-22] MEDS: Omeprazole 20 MG CAPSULE.DR PO (06:25)
[2023-07-22] MEDS: Benztropine Mesylate 0.5 MG TABLET PO ×2 (08:18→19:58)
[2023-07-22] MEDS: fluPHENAZine HCl 5 MG TABLET PO ×2 (08:18→19:59)
[2023-07-22 08:19] VITALS: BP 122/67
[2023-07-22] MEDS: cloNIDine HCL 0.2 MG TABLET PO ×2 (08:19→19:59)
[2023-07-22] MEDS: clonazePAM 0.5 MG TABLET PO ×2 (08:20→16:52)
--- NOTE | 2023-07-22 09:54 | HO.PSYCHPN ---
Subjective Subjective Date of Service: 07/22/23 Reason For Visit: Interim History: Met with patient; discussed with team Same presentation; still had diarrhea overnight however patient has now completed antibiotic and suspect that this will clear up. Continue with dispo plan Mental Status Exam Mental Status Exam Narrative: Pt is alert and oriented; behavior is cooperative, calm; patient is not in distress; dressed in casual attire with adequate hygiene; mood is described as ok and affect constricted; eye contact appropriate; Speech is normal rate, volume and prosody and not pressured; no psychomotor agitation/retardation present; thought process is organized and goal directed; Thought content is on treatment; otherwise pertinent to relevant topics and without any delusional content, paranoid ideations or grandiosity; no SI; no HI. Denies AVH Patients insight and judgment fair, at baseline Diagnostics Vital Signs (24Hr): Vital Signs - 24 hr 07/21/23 17:08 07/22/23 08:19 Temperature 98.3 F Pulse Rate 74 Blood Pressure 111/70 122/67 Pulse Oximetry 98 Oxygen Delivery Method Room Air BMI result Body Mass Index 23.9 Labs 07/14/23 11:43 07/14/23 11:43 Labs: Laboratory Results - last 48 hr 07/20/23 13:03 C. difficile Tox B Gene NEGATIVE Medications Medications Current Medications Acetaminophen (Acetaminophen 325 Mg Tablet) 650 mg PO Q6H PRN PRN Reason: Headache/Pain Mild Scale (1-3) Last Admin: 07/15/23 17:18 Dose: 650 mg Al Hydroxide/Mg Hydroxide (Magnesium Hydrox/Alum Hydrox 30 Ml Oral.Susp) 30 ml PO Q6H PRN PRN Reason: Heartburn/Nausea Amitriptyline HCl (Amitriptyline Hcl 50 Mg Tablet) 100 mg PO BEDTIME [facility] Last Admin: 07/21/23 20:20 Dose: 100 mg Amitriptyline HCl (Amitriptyline Hcl 25 Mg Tablet) 25 mg PO BEDTIME [facility] Last Admin: 07/21/23 20:19 Dose: 25 mg Benztropine Mesylate (Benztropine Mesylate 0.5 Mg Tablet) 0.5 mg PO BID [facility] Last Admin: 07/22/23 08:18 Dose: 0.5 mg Capsaicin (Capsaicin 0.025% Cream 60 Gm Tube) 1 appl TOPICAL TID PRN; Protocol PRN Reason: b/l arthritic knee pain Clonazepam (Clonazepam 0.5 Mg Tablet) 0.5 mg PO BID@0900,1700 [facility] Last Admin: 07/22/23 08:20 Dose: 0.5 mg Clonidine HCl (Clonidine Hcl 0.2 Mg Tablet) 0.2 mg PO BID [facility]; Protocol Last Admin: 07/22/23 08:19 Dose: 0.2 mg Diphenhydramine HCl (Diphenhydramine Hcl 25 Mg Capsule) 50 mg PO BEDTIME [facility] Last Admin: 07/21/23 20:19 Dose: 50 mg Fluphenazine HCl (Fluphenazine Hcl 5 Mg Tablet) 5 mg PO BID [facility] Last Admin: 07/22/23 08:18 Dose: 5 mg Hydroxyzine HCl (Hydroxyzine Hcl 25 Mg Tablet) 25 mg PO Q6H PRN PRN Reason: Anxiety Last Admin: 07/22/23 04:28 Dose: 25 mg Ibuprofen (Ibuprofen 600 Mg Tablet) 600 mg PO Q8H PRN PRN Reason: Pain, Mild (Pain Scale 1-3) Last Admin: 07/17/23 10:43 Dose: 600 mg Loperamide HCl (Loperamide Hcl 2 Mg Capsule) 2 mg PO Q6H PRN PRN Reason: Loose Stool Last Admin: 07/22/23 04:28 Dose: 2 mg Loperamide HCl (Loperamide Hcl 2 Mg Capsule) 4 mg PO BEDTIME [facility] Stop: 07/22/23 23:50 Last Admin: 07/21/23 17:59 Dose: 4 mg Magnesium Hydroxide (Milk Of Magnesia 30 Ml Oral.Susp) 30 ml PO DAILY PRN PRN Reason: Constipation Melatonin (Melatonin 3 Mg Tablet) 9 mg PO BEDTIME [facility] Last Admin: 07/21/23 20:18 Dose: 9 mg Mirtazapine (Mirtazapine 15 Mg Tablet) 45 mg PO BEDTIME [facility] Last Admin: 07/21/23 20:20 Dose: 45 mg Nicotine (Nicotine 21 Mg Patch.Td24) 21 mg TRANSDERMA DAILY PRN PRN Reason: smoking cessation Nicotine Polacrilex (Nicotine Polacrilex 2 Mg Gum) 4 mg BUCCAL Q2H PRN PRN Reason: Nicotine Cravings Nicotine Polacrilex (Nicotine Polacrilex 2 Mg Gum) 2 mg BUCCAL Q1H PRN PRN Reason: Nicotine Cravings Olanzapine (Olanzapine 5 Mg Tablet) 5 mg PO TID PRN PRN Reason: agitation Last Admin: 07/21/23 20:21 Dose: 5 mg Omeprazole (Omeprazole 20 Mg Capsule.Dr) 20 mg PO DAILY@0630 [facility] Last Admin: 07/22/23 06:25 Dose: 20 mg Senna (Sennosides 8.6 Mg Tablet) 8.6 mg PO BEDTIME PRN PRN Reason: Constipation Zolpidem Tartrate (Zolpidem Tartrate 5 Mg Tablet) 5 mg PO BEDTIME PRN PRN Reason: insomnia Last Admin: 07/21/23 20:29 Dose: 5 mg Allergies Allergies Allergy/AdvReac Type Severity Reaction Status Date / Time trazodone [TRAZODONE] Allergy Severe FACIAL Verified 07/14/23 11:17 SWELLING, swelling cat dander [CATS] Allergy Intermediate FACIAL Verified 07/14/23 11:17 ITCHING doxepin [DOXEPIN] Allergy Intermediate WEIGHT Verified 07/14/23 11:17 GAIN/LEG SWELLING Iodinated Contrast Media Allergy Intermediate ITCHING Verified 07/14/23 11:17 [IV DYE, IODINE CONTAINING CONTRAST ] nitroglycerin [NITROGLYCERIN] Allergy Unknown UNKNOWN Verified 07/14/23 11:17 tramadol [TRAMADOL] Allergy Unknown UNKNOWN, Verified 07/14/23 11:17 dry mouth ibuprofen [From MOTRIN] AdvReac Intermediate GI UPSET Verified 07/14/23 11:17 quetiapine [From SEROQUEL] AdvReac Intermediate FACIAL Verified 07/14/23 11:17 SWELLING aspirin [ASPIRIN] AdvReac Mild Stomach Verified 07/14/23 11:17 Upset Ibuprofen Allergy Unknown stomach Uncoded 07/14/23 11:17 ache IV contrast Allergy Unknown Unknown Uncoded 07/14/23 11:17 Motrin Allergy Unknown stomach Uncoded 07/14/23 11:17 pain Assessment & Plan Assessment & Plan (1) Schizoaffective disorder: Status: Acute Code(s): F25.9 - Schizoaffective disorder, unspecified (2) Tooth ache: Status: Acute Code(s): K08.89 - Other specified disorders of teeth and supporting structures Plan Patient is a 53-year-old male with history of schizoaffective disorder, depressed type, opioid/cocaine abuse in sustained remission, intermittent SI and multiple hospitalizations who self- presents for suicidal ideation in the face of relational strife. Patient reports he is feeling in a good mood until this past month when his sister, whom he says is jealous that patient has his own apartment, was being rude to him, bossy, giving him orders in his own house and eventually saying to him I hope you ... Patient said ever since she said this his depression came back and he has been feeling like no one in his family cares about him, that he is a dog to his family. Because he was upset, he stopped taking his medications for the past couple weeks and his depression continued to worsen. Although he reports having the support of other family members, his sister's comment deeply affected him and his depression continued to get worse and worse. This past week he started feeling suicidal and had thoughts to cut himself, cut his head and neck he said I was going to cut my head but a friend of his encouraged him to come to the emergency room so he self presented. Patient endorses auditory hallucinations which he says are daily and independent of mood. Denies any recent substance abuse; wants to get back on home medications. Formulation; Patient here with very similar presentation to past admissions; thankfully he is remained sober. Patient did not actually harm himself and though Depressed says SI is clearing up -patient says he buys clonazepam on the street and only takes 2 pills daily Hospital course: 07/16 patient doing better, denies SI, mood is better; no longer angry at his sister; denies AVH and patient says slept well. Asks if he can have clonazepam while here since he buys it on the streets. Bell Clerk agreed to low-dose -Patient already feeling better which is typical for past admissions; no need for medication changes at this time 07/20/23- pt hx asks for benzodiazepines over all the years I have known him, but he doesn't have consistent outpt providers to follow up with this- and there may have been some prior hx of sub use- or AUD 07/20 patient seems to be at baseline; denies any SI; intermittent AH but again at baseline. Feels somewhat ready for discharge to a step-down respite 07/21 continue with dispo planning Plan: CV Q 15 minute checks Added clonazepam 0.5 mg b.i.d. since patient by this on the street and takes it regularly Add clonazepam 0.5 mg b.i.d. Amitriptyline HCl (Amitriptyline Hcl 50 Mg Tablet) 100 mg PO BEDTIME [facility] Amitriptyline HCl (Amitriptyline Hcl 25 Mg Tablet) 25 mg PO BEDTIME [facility] Mirtazapine (Mirtazapine 15 Mg Tablet) 45 mg PO BEDTIME [facility] Fluphenazine HCl (Fluphenazine Hcl 5 Mg Tablet) 5 mg PO BID [facility] Benztropine Mesylate (Benztropine Mesylate 0.5 Mg Tablet) 0.5 mg PO BID [facility] Zolpidem Tartrate (Zolpidem Tartrate 5 Mg Tablet) 5 mg PO BEDTIME PRN Completed course of antibiotics Amoxicillin/Clavulanate Potassium 875 mg PO BID [facility] (started in ED L lower molar ttp mild swelling but no abdi abscess ) Capsaicin (Capsaicin 0.025% Cream 60 Gm Tube) 1 appl TOPICAL TID PRN; Protocol Clonidine HCl (Clonidine Hcl 0.2 Mg Tablet) 0.2 mg PO BID [facility]; Protocol Diphenhydramine HCl (Diphenhydramine Hcl 25 Mg Capsule) 50 mg PO BEDTIME [facility] Loperamide HCl (Loperamide Hcl 2 Mg Capsule) 2 mg PO Q6H PRN Magnesium Hydroxide (Milk Of Magnesia 30 Ml Oral.Susp) 30 ml PO DAILY PRN Melatonin (Melatonin 3 Mg Tablet) 9 mg PO BEDTIME [facility] Omeprazole (Omeprazole 20 Mg Capsule.Dr) 20 mg PO DAILY@0630 [facility] Senna (Sennosides 8.6 Mg Tablet) 8.6 mg PO BEDTIME PRN 07/20/23- pt hx asks for benzodiazepines over all the years I have known him, but he doesn't have consistent outpt providers to follow up with this- and there may have been some prior hx of sub use- or AUD Reason for continued inpatient stay Substantial Risk for: stable for discharge Time Spent With Patient Time: Total time managing care of this patient today ____ minutes.
[2023-07-22] MEDS: Loperamide HCl 2 MG CAPSULE 4 MG PO ×3 (10:28→19:59)
[2023-07-22] MEDS: Amitriptyline HCl 50 MG TABLET 100 MG PO (19:57)
[2023-07-22] MEDS: Melatonin 3 MG TABLET 9 MG PO (19:58)
[2023-07-22] MEDS: OLANZapine 5 MG TABLET PO (19:58)
[2023-07-22] MEDS: Amitriptyline HCl 25 MG TABLET PO (19:59)
[2023-07-22] MEDS: Zolpidem Tartrate 5 MG TABLET PO (19:59)
[2023-07-22 20:00] VITALS: BP 135/83; PULSE 85; RESP 17; TEMP 36.5; O2SAT 98
[2023-07-22] MEDS: diphenhydrAMINE HCL 25 MG CAPSULE 50 MG PO (20:00)
[2023-07-22] MEDS: Mirtazapine 15 MG TABLET 45 MG PO (20:00)
[2023-07-23] MEDS: Omeprazole 20 MG CAPSULE.DR PO (06:32)
[2023-07-23 07:00] VITALS: BMI 25.2
[2023-07-23 08:02] VITALS: BP 130/61
[2023-07-23] MEDS: clonazePAM 0.5 MG TABLET PO ×2 (08:02→17:16)
[2023-07-23] MEDS: fluPHENAZine HCl 5 MG TABLET PO ×2 (08:02→19:39)
[2023-07-23] MEDS: cloNIDine HCL 0.2 MG TABLET PO ×2 (08:02→19:38)
[2023-07-23 08:03] VITALS: BP 130/61; PULSE 75; RESP 16; TEMP 36.5; O2SAT 99
[2023-07-23] MEDS: Benztropine Mesylate 0.5 MG TABLET PO ×2 (08:03→19:38)
[2023-07-23] MEDS: hydrOXYzine HCL 25 MG TABLET PO ×2 (13:05→19:39)
--- NOTE | 2023-07-23 17:18 | HO.PSYCHPN ---
Subjective Subjective Date of Service: 07/23/23 Reason For Visit: AH Interim History: Met with patient; discussed with team Patient reports overall feeling okay, but not depressed and no SI; much better since he came in. Loose stool is subsiding. Patient feels ready for discharge to step-down respite. Intermittent AH which is chronic and tolerable. Mental Status Exam Mental Status Exam Narrative: Pt is alert and oriented; behavior is cooperative, calm; patient is not in distress; dressed in casual attire with adequate hygiene; mood is described as ok and affect constricted; eye contact appropriate; Speech is normal rate, volume and prosody and not pressured; no psychomotor agitation/retardation present; thought process is organized and goal directed; Thought content is on treatment; otherwise pertinent to relevant topics and without any delusional content, paranoid ideations or grandiosity; no SI; no HI. Intermittent, chronic, tolerable AH Patients insight and judgment fair, at baseline Diagnostics Vital Signs (24Hr): Vital Signs - 24 hr 07/22/23 20:00 07/23/23 08:02 07/23/23 08:03 Temperature 97.7 F 97.7 F Pulse Rate 85 75 Respiratory Rate 17 16 Blood Pressure 135/83 130/61 130/61 Pulse Oximetry 98 99 Oxygen Delivery Method Room Air Room Air BMI result Body Mass Index 25.2 Labs 07/14/23 11:43 07/14/23 11:43 Medications Medications Current Medications Acetaminophen (Acetaminophen 325 Mg Tablet) 650 mg PO Q6H PRN PRN Reason: Headache/Pain Mild Scale (1-3) Last Admin: 07/15/23 17:18 Dose: 650 mg Al Hydroxide/Mg Hydroxide (Magnesium Hydrox/Alum Hydrox 30 Ml Oral.Susp) 30 ml PO Q6H PRN PRN Reason: Heartburn/Nausea Amitriptyline HCl (Amitriptyline Hcl 50 Mg Tablet) 100 mg PO BEDTIME [facility] Last Admin: 07/22/23 19:57 Dose: 100 mg Amitriptyline HCl (Amitriptyline Hcl 25 Mg Tablet) 25 mg PO BEDTIME [facility] Last Admin: 07/22/23 19:59 Dose: 25 mg Benztropine Mesylate (Benztropine Mesylate 0.5 Mg Tablet) 0.5 mg PO BID [facility] Last Admin: 07/23/23 08:03 Dose: 0.5 mg Capsaicin (Capsaicin 0.025% Cream 60 Gm Tube) 1 appl TOPICAL TID PRN; Protocol PRN Reason: b/l arthritic knee pain Clonazepam (Clonazepam 0.5 Mg Tablet) 0.5 mg PO BID@0900,1700 [facility] Last Admin: 07/23/23 17:16 Dose: 0.5 mg Clonidine HCl (Clonidine Hcl 0.2 Mg Tablet) 0.2 mg PO BID [facility]; Protocol Last Admin: 07/23/23 08:02 Dose: 0.2 mg Diphenhydramine HCl (Diphenhydramine Hcl 25 Mg Capsule) 50 mg PO BEDTIME [facility] Last Admin: 07/22/23 20:00 Dose: 50 mg Fluphenazine HCl (Fluphenazine Hcl 5 Mg Tablet) 5 mg PO BID [facility] Last Admin: 07/23/23 08:02 Dose: 5 mg Hydroxyzine HCl (Hydroxyzine Hcl 25 Mg Tablet) 25 mg PO Q6H PRN PRN Reason: Anxiety Last Admin: 07/23/23 13:05 Dose: 25 mg Ibuprofen (Ibuprofen 600 Mg Tablet) 600 mg PO Q8H PRN PRN Reason: Pain, Mild (Pain Scale 1-3) Last Admin: 07/17/23 10:43 Dose: 600 mg Loperamide HCl (Loperamide Hcl 2 Mg Capsule) 4 mg PO Q6H PRN PRN Reason: Loose Stool Last Admin: 07/22/23 17:35 Dose: 4 mg Magnesium Hydroxide (Milk Of Magnesia 30 Ml Oral.Susp) 30 ml PO DAILY PRN PRN Reason: Constipation Melatonin (Melatonin 3 Mg Tablet) 9 mg PO BEDTIME [facility] Last Admin: 07/22/23 19:58 Dose: 9 mg Mirtazapine (Mirtazapine 15 Mg Tablet) 45 mg PO BEDTIME [facility] Last Admin: 07/22/23 20:00 Dose: 45 mg Nicotine (Nicotine 21 Mg Patch.Td24) 21 mg TRANSDERMA DAILY PRN PRN Reason: smoking cessation Nicotine Polacrilex (Nicotine Polacrilex 2 Mg Gum) 4 mg BUCCAL Q2H PRN PRN Reason: Nicotine Cravings Nicotine Polacrilex (Nicotine Polacrilex 2 Mg Gum) 2 mg BUCCAL Q1H PRN PRN Reason: Nicotine Cravings Olanzapine (Olanzapine 5 Mg Tablet) 5 mg PO TID PRN PRN Reason: agitation Last Admin: 04/17/24 19:58 Dose: 5 mg Omeprazole (Omeprazole 20 Mg Capsule.Dr) 20 mg PO DAILY@0630 [facility] Last Admin: 07/23/23 06:32 Dose: 20 mg Senna (Sennosides 8.6 Mg Tablet) 8.6 mg PO BEDTIME PRN PRN Reason: Constipation Zolpidem Tartrate (Zolpidem Tartrate 5 Mg Tablet) 5 mg PO BEDTIME PRN PRN Reason: insomnia Last Admin: 07/22/23 19:59 Dose: 5 mg Allergies Allergies Allergy/AdvReac Type Severity Reaction Status Date / Time trazodone [TRAZODONE] Allergy Severe FACIAL Verified 07/14/23 11:17 SWELLING, swelling cat dander [CATS] Allergy Intermediate FACIAL Verified 07/14/23 11:17 ITCHING doxepin [DOXEPIN] Allergy Intermediate WEIGHT Verified 07/14/23 11:17 GAIN/LEG SWELLING Iodinated Contrast Media Allergy Intermediate ITCHING Verified 07/14/23 11:17 [IV DYE, IODINE CONTAINING CONTRAST ] nitroglycerin [NITROGLYCERIN] Allergy Unknown UNKNOWN Verified 07/14/23 11:17 tramadol [TRAMADOL] Allergy Unknown UNKNOWN, Verified 07/14/23 11:17 dry mouth ibuprofen [From MOTRIN] AdvReac Intermediate GI UPSET Verified 07/14/23 11:17 quetiapine [From SEROQUEL] AdvReac Intermediate FACIAL Verified 07/14/23 11:17 SWELLING aspirin [ASPIRIN] AdvReac Mild Stomach Verified 07/14/23 11:17 Upset Ibuprofen Allergy Unknown stomach Uncoded 07/14/23 11:17 ache IV contrast Allergy Unknown Unknown Uncoded 07/14/23 11:17 Motrin Allergy Unknown stomach Uncoded 07/14/23 11:17 pain Assessment & Plan Assessment & Plan (1) Schizoaffective disorder: Status: Acute Code(s): F25.9 - Schizoaffective disorder, unspecified (2) Tooth ache: Status: Acute Code(s): K08.89 - Other specified disorders of teeth and supporting structures Plan Patient is a 53-year-old male with history of schizoaffective disorder, depressed type, opioid/cocaine abuse in sustained remission, intermittent SI and multiple hospitalizations who self- presents for suicidal ideation in the face of relational strife. Patient reports he is feeling in a good mood until this past month when his sister, whom he says is jealous that patient has his own apartment, was being rude to him, bossy, giving him orders in his own house and eventually saying to him I hope you ... Patient said ever since she said this his depression came back and he has been feeling like no one in his family cares about him, that he is a dog to his family. Because he was upset, he stopped taking his medications for the past couple weeks and his depression continued to worsen. Although he reports having the support of other family members, his sister's comment deeply affected him and his depression continued to get worse and worse. This past week he started feeling suicidal and had thoughts to cut himself, cut his head and neck he said I was going to cut my head but a friend of his encouraged him to come to the emergency room so he self presented. Patient endorses auditory hallucinations which he says are daily and independent of mood. Denies any recent substance abuse; wants to get back on home medications. Formulation; Patient here with very similar presentation to past admissions; thankfully he is remained sober. Patient did not actually harm himself and though Depressed says SI is clearing up -patient says he buys clonazepam on the street and only takes 2 pills daily Hospital course: 07/16 patient doing better, denies SI, mood is better; no longer angry at his sister; denies AVH and patient says slept well. Asks if he can have clonazepam while here since he buys it on the streets. Type Inspector agreed to low-dose -Patient already feeling better which is typical for past admissions; no need for medication changes at this time 07/18 Says he feels ok , denies any thoughts of giving up or thoughts to harm himself. Denies any aggressive ideation. Says he slept last night. Denies any AH or VH currently. 07/22Patient reports overall feeling okay, but not depressed and no SI; much better since he came in. Loose stool is subsiding. Patient feels ready for discharge to step-down respite. Intermittent AH which is chronic and tolerable. Discussed his apartment [place] neighborhood but is grateful that he has Patient is at baseline. He feels ready to discharge with acute symptoms remaining fully resolved. He is stepping down to respite which he is looking forward to. Patient has remained in good behavioral and impulse control. He has not in imminent risk for harm to self or others and appropriate to continue treatment in the community Plan: CV Q 15 minute checks Add clonazepam 0.5 mg b.i.d. Amitriptyline HCl (Amitriptyline Hcl 50 Mg Tablet) 100 mg PO BEDTIME [facility] Amitriptyline HCl (Amitriptyline Hcl 25 Mg Tablet) 25 mg PO BEDTIME [facility] Mirtazapine (Mirtazapine 15 Mg Tablet) 45 mg PO BEDTIME [facility] Fluphenazine HCl (Fluphenazine Hcl 5 Mg Tablet) 5 mg PO BID [facility] Benztropine Mesylate (Benztropine Mesylate 0.5 Mg Tablet) 0.5 mg PO BID [facility] Zolpidem Tartrate (Zolpidem Tartrate 5 Mg Tablet) 5 mg PO BEDTIME PRN Amoxicillin/Clavulanate Potassium 875 mg PO BID J[facility] (started in ED L lower molar ttp mild swelling but no abdi abscess ) Capsaicin (Capsaicin 0.025% Cream 60 Gm Tube) 1 appl TOPICAL TID PRN; Protocol Clonidine HCl (Clonidine Hcl 0.2 Mg Tablet) 0.2 mg PO BID JAMES; Protocol Diphenhydramine HCl (Diphenhydramine Hcl 25 Mg Capsule) 50 mg PO BEDTIME [facility] Loperamide HCl (Loperamide Hcl 2 Mg Capsule) 2 mg PO Q6H PRN Magnesium Hydroxide (Milk Of Magnesia 30 Ml Oral.Susp) 30 ml PO DAILY PRN Melatonin (Melatonin 3 Mg Tablet) 9 mg PO BEDTIME [facility] Omeprazole (Omeprazole 20 Mg Capsule.) 20 mg PO DAILY@0630 [facility] Senna (Sennosides 8.6 Mg Tablet) 8.6 mg PO BEDTIME PRN Patient educated on: diagnosis, medication risk/benefits and medical condition Informed Consent: understands Reason for continued inpatient stay Substantial Risk for: stable for discharge Time Spent With Patient Time: Total time managing care of this patient today ____ minutes.
[2023-07-23] MEDS: Amitriptyline HCl 50 MG TABLET 100 MG PO (19:38)
[2023-07-23] MEDS: Loperamide HCl 2 MG CAPSULE 4 MG PO (19:38)
[2023-07-23] MEDS: OLANZapine 5 MG TABLET PO (19:38)
[2023-07-23] MEDS: Amitriptyline HCl 25 MG TABLET PO (19:38)
[2023-07-23] MEDS: Melatonin 3 MG TABLET 9 MG PO (19:39)
[2023-07-23] MEDS: Zolpidem Tartrate 5 MG TABLET PO (19:39)
[2023-07-23] MEDS: Mirtazapine 15 MG TABLET 45 MG PO (19:39)
[2023-07-23] MEDS: diphenhydrAMINE HCL 25 MG CAPSULE 50 MG PO (19:39)
[2023-07-23 20:00] VITALS: BP 115/88; PULSE 75; RESP 17; TEMP 37.1; O2SAT 97
[2023-07-24] MEDS: Omeprazole 20 MG CAPSULE.DR PO (05:59)
[2023-07-24 08:00] VITALS: BP 105/55; PULSE 85; RESP 18; TEMP 36.9; O2SAT 99
--- NOTE | 2023-07-24 08:22 | P.DS_ITS ---
DS: Providers Provider Date of Service: 07/24/23 Date of admission: 07/15/23 12:46 Date of discharge: 07/24/23 Primary care physician: Patrick Ly MD Attending physician on admission: Rodolfo Bejarano Attending physician on discharge: Rodolfo Bejarano DS: Diagnosis Discharge Diagnosis (1) Schizoaffective disorder: Status: Acute (2) Tooth ache: Status: Acute DS: Medications Discharge Medications Home Medications: Home Medications ?Medication ?Instructions ?Recorded ?Confirmed hydroxyzine HCl 50 mg tablet 50 mg PO QID PRN anxiety 03/03/22 07/15/23 amitriptyline 100 mg tablet 100 mg PO BEDTIME 07/11/22 07/15/23 zolpidem 12.5 mg tablet,extended 12.5 mg PO BEDTIME PRN insomnia 05/09/23 07/15/23 release,multiphase benztropine 0.5 mg tablet 0.5 mg PO BID 05/10/23 07/15/23 diphenhydramine HCl 25 mg tablet 50 mg PO BEDTIME 05/10/23 07/15/23 melatonin 5 mg tablet 10 mg PO BEDTIME 05/10/23 07/15/23 mirtazapine 45 mg tablet 45 mg PO BEDTIME 05/10/23 07/15/23 amitriptyline 25 mg tablet 25 mg PO BEDTIME 07/15/23 07/15/23 clonidine HCl 0.2 mg tablet 0.2 mg PO BID 07/15/23 07/15/23 fluphenazine HCl 5 mg tablet 5 mg PO BID 07/15/23 07/15/23 Previous Rx's ?Medication ?Instructions ?Recorded omeprazole 20 mg capsule,delayed 20 mg PO DAILY 90 days #90 caps 06/18/23 release sennosides 8.6 mg tablet (senna) 8.6 mg PO BEDTIME PRN Constipation 06/18/23 90 days #90 tabs Mental Status Exam Mental Status Exam Narrative: Pt is alert and oriented; behavior is cooperative, calm; patient is not in distress; dressed in casual attire with adequate hygiene; mood is described as ok and affect congruent, more calm; eye contact appropriate; Speech is normal rate, volume and prosody and not pressured; no psychomotor agitation/retardation present; thought process is organized and goal directed; Thought content is on treatment; otherwise pertinent to relevant topics and without any delusional content, paranoid ideations or grandiosity; no SI; no HI. Intermittent, chronic, tolerable AH Patients insight and judgment fair, at baseline Data Data Completed and Pending Completed studies during hospitalization [Text1]: 07/20/23 13:03 C. difficile Tox B Gene NEGATIVE 07/14/23 15:40 Urine clean catch Urine Culture - Final DS: Summary Hospital Course Hospital Course: Patient is a 53-year-old male with history of schizoaffective disorder, depressed type, opioid/cocaine abuse in sustained remission, intermittent SI and multiple hospitalizations who self- presents for suicidal ideation in the face of relational strife. Patient reports he is feeling in a good mood until this past month when his sister, whom he says is jealous that patient has his own apartment, was being rude to him, bossy, giving him orders in his own house and eventually saying to him I hope you ... Patient said ever since she said this his depression came back and he has been feeling like no one in his family cares about him, that he is a dog to his family. Because he was upset, he stopped taking his medications for the past couple weeks and his depression continued to worsen. Although he reports having the support of other family members, his sister's comment deeply affected him and his depression continued to get worse and worse. This past week he started feeling suicidal and had thoughts to cut himself, cut his head and neck he said I was going to cut my head but a friend of his encouraged him to come to the emergency room so he self presented. Patient endorses auditory hallucinations which he says are daily and independent of mood. Denies any recent substance abuse; wants to get back on home medications. Formulation; Patient here with very similar presentation to past admissions; thankfully he is remained sober. Patient did not actually harm himself and though Depressed says SI is clearing up -patient says he buys clonazepam on the street and only takes 2 pills daily Hospital course: Restarted home medications since they have proved to be effective. 07/16 patient doing better, denies SI, mood is better; no longer angry at his sister; denies AVH and patient says slept well. Asks if he can have clonazepam while here since he buys it on the streets. Research/Program Director agreed to low-dose -Patient already feeling better which is typical for past admissions; no need for medication changes at this time 07/18 Says he feels ok , denies any thoughts of giving up or thoughts to harm himself. Denies any aggressive ideation. Says he slept last night. Denies any AH or VH currently. 07/22Patient reports overall feeling okay, but not depressed and no SI; much better since he came in. Loose stool is subsiding. Patient feels ready for discharge to step-down respite. Intermittent AH which is chronic and tolerable. Discussed his apartment [place] he [place] the greatest neighborhood but is grateful that he has it -patient accepted to respite Regarding medications: Patient was discharged with prescription for clonazepam 0.5 mg b.i.d.. Reasoning is that he buys clonazepam on the street and will continue to do so; for this reason it is principal technical writer's opinion that from the perspective of harm reduction, it is preferable that he has a prescription to lower the risk of him getting an adulterated, counterfeit clonazepam which could contain harmful products. He was continued on zolpidem which she consistently gets as an outpatient. On the unit, patient was given Zyprexa as a p.r.n. for anxiety and this was continued for now with the hope that as he continues to stabilize he will no longer need this p.r.n; risks were discussed of antipsychotics, including being on 2 of, which patient understood and with which will continue for now; patient will discuss with outpatient provider whether or not to increase fluphenazine. Patient is at baseline. He feels ready to discharge with acute symptoms remaining fully resolved. He is stepping down to respite which he is looking forward to. Patient has remained in good behavioral and impulse control. He has not in imminent risk for harm to self or others and appropriate to continue treatment in the community Time spent discussing smoking cessation with patient: 3 to 10 minutes Status at Discharge Functional status at discharge: independent ambulation Overall status at discharge: patient is back to baseline Time Spent with Patient Time attestation: Total time managing care of this patient today _40___ minutes. Time spent: Greater than 30 minutes Discharge Plan Discharge Anticipated Discharge Date/Time: 07/24/23 11:30 Patient Disposition: Home, Self-Care Discharge Diagnosis: schizoaffective disorder, depressed type Referrals: [facility] [place] [Other] - 07/24/23 11:30 am (Patient accepted to [facility] [place] for step- down placement.) Patrick Ly MD [Primary Care Provider] - 1 Week Discharge Medications: New clonazepam 0.5 mg Tablet 0.5 mg PO BID@0900,1700 30 Days Qty: 60 0RF olanzapine 5 mg Tablet 5 mg PO DAILY PRN (Reason: agitation) 30 Days Qty: 30 0RF loperamide 2 mg Capsule 4 mg PO Q6H PRN (Reason: Loose Stool) 5 Days Qty: 10 0RF Continued sennosides [senna] 8.6 mg tablet 8.6 mg PO BEDTIME PRN (Reason: Constipation) 30 Days Qty: 30 0RF benztropine 0.5 mg tablet 0.5 mg PO BID 30 Days Qty: 60 0RF hydroxyzine HCl 50 mg tablet 50 mg PO QID PRN (Reason: anxiety) 30 Days Qty: 90 0RF clonidine HCl 0.2 mg tablet 0.2 mg PO BID 30 Days Qty: 60 0RF amitriptyline 25 mg tablet 25 mg PO BEDTIME 30 Days Qty: 30 0RF omeprazole 20 mg capsule,delayed release(DR/EC) 20 mg PO DAILY 30 Days Qty: 30 0RF mirtazapine 45 mg tablet 45 mg PO BEDTIME 30 Days Qty: 30 0RF amitriptyline 100 mg Tablet 100 mg PO BEDTIME 30 Days Qty: 30 0RF fluphenazine HCl 5 mg tablet 5 mg PO BID 30 Days Qty: 60 0RF zolpidem 12.5 mg tablet,ext release multiphase 12.5 mg PO BEDTIME PRN (Reason: insomnia ) 30 Days Qty: 30 0RF Changed melatonin 5 mg tablet 10 mg PO BEDTIME PRN (Reason: sleep/early waking) 30 Days Qty: 60 0RF Discontinued diphenhydramine HCl 25 mg tablet 50 mg PO BEDTIME Discharge Orders: Discharge Order (Routine); Ordered 07/24/23 Ordered By: Rodolfo Bejarano Diet: Regular diet Activity on Discharge: As tolerated Stand Alone Forms: Patient Portal Discharge page, Community Support Print Language: Cuban Care Plan Goals: Maintain mood and safe behaviors Take medications as prescribed Continue to pursue sobriety Practice coping skills Continue with outpatient providers and reach out to them as needed Health Concerns: Mood stability and behaviors GERD Osteoarthritis BPH Plan of Treatment: Follow up with your PCP, psychiatric provider and other outpatient providers regarding above concerns Take medications as prescribed Assessment: Risk assessment at time of discharge:? Patient was interviewed prior to discharge and found to be fully oriented and without any SI or HI. Patient has improved insight and judgment and wants to continue treatment. Patient is not in imminent risk of harm to self or others and has a safety plan that includes presenting to the closest ER or calling 911 if feeling unsafe.? Patient has been observed closely by nursing and unit staff throughout admission; patient has not engaged in any behaviors that suggest dangerousness to self or others and has demonstrated appropriate behaviors and impulse control Discharge Date/Time: 07/24/23 11:19
[2023-07-24] MEDS: Benztropine Mesylate 0.5 MG TABLET PO (08:29)
[2023-07-24] MEDS: fluPHENAZine HCl 5 MG TABLET PO (08:30)
[2023-07-24] MEDS: cloNIDine HCL 0.2 MG TABLET PO (08:30)
[2023-07-24] MEDS: clonazePAM 0.5 MG TABLET PO (08:30)
[2023-07-24] MEDS: Naloxone HCl Nasal TAKE HOME 4 MG SPRAY 8 MG NOSTRILALT (09:40)
[2023-07-24] MEDS: Loperamide HCl 2 MG CAPSULE 4 MG PO (10:08)
== END 2023-07-24 11:19 | disposition home or self-care (01) | DRG 750 ==
LOC: HO.ED 15:26 → HO.PM5 07-15 12:52
PROVIDERS: Internal Medicine; Physician Assistant Medical; Admitting Provider Psychiatry & Neurology Psychiatry; Emergency Provider Emergency Medicine; PCP Internal Medicine; Visit Provider Psychiatry & Neurology Psychiatry
DX: F25.1 Schizoaffective disorder, depressive type (principal); R45.851 Suicidal ideations; F11.11 Opioid abuse, in remission; F14.11 Cocaine abuse, in remission; K08.89 Other specified disorders of teeth and supporting structures; F17.210 Nicotine dependence, cigarettes, uncomplicated; Z71.6 Tobacco abuse counseling; Z20.822 Contact with and (suspected) exposure to COVID-19; Z79.899 Other long term (current) drug therapy
CPT/HCPCS: 0241U; 36415; 80053; 80061; 80307; 81001; 83036; 85025; 87086; 87493; 93005; 99285; S9485

== ENCOUNTER → 2023-07-15 09:30 | Outpatient (BNV) | payer MEDICAID, SELFPAY | PROVIDERS: Admitting Provider Psychiatry & Neurology Psychiatry; Emergency Provider Emergency Medicine; PCP Internal Medicine; Visit Provider Internal Medicine Cardiovascular Disease | DX: R94.31 Abnormal electrocardiogram [ECG] [EKG] (principal) | CPT/HCPCS: 93010 ==

== ENCOUNTER → 2023-07-15 12:46 | Outpatient (BNV) | payer OTHER, SELFPAY | PROVIDERS: Admitting Provider Psychiatry & Neurology Psychiatry; Emergency Provider Emergency Medicine; PCP Internal Medicine; Visit Provider Psychiatry & Neurology Psychiatry | DX: F25.1 Schizoaffective disorder, depressive type (principal); K08.89 Other specified disorders of teeth and supporting structures | CPT/HCPCS: 99231; 99232 ==

== ENCOUNTER 2023-08-03 19:44 | Emergency (ER) | payer MEDICAID, SELFPAY ==
[2023-08-03 20:25] VITALS: BP 135/78; PULSE 80; RESP 17; TEMP 36.4; O2SAT 98; BMI 27.3
--- NOTE | 2023-08-03 20:25 | ED.GENADULT ---
HPI - General Adult General Chief complaint: Extremity Injury, Lower Stated complaint: Knee pain Related Data Home Medications ?Medication ?Instructions ?Recorded ?Confirmed albuterol sulfate 90 mcg/actuation 2 puff inhalation Q4-6H PRN 08/19/23 08/19/23 aerosol inhaler (Ventolin HFA) Shortness Of Breath Or Wheezing capsaicin 0.025 % topical cream 1 appl topical TID 08/19/23 08/19/23 cholecalciferol (vitamin D3) 25 25 mcg PO DAILY 08/19/23 08/19/23 mcg (1,000 unit) capsule fluticasone propionate 50 1 - 2 spray intranasal DAILY 08/19/23 08/19/23 mcg/actuation nasal spray,suspension loperamide 2 mg tablet 2 mg PO Q6H PRN Loose Stool 08/19/23 08/19/23 (Anti-Diarrheal (loperamide)) metformin 500 mg tablet,extended 500 mg PO QPM 08/19/23 08/19/23 release 24 hr mirtazapine 15 mg tablet 15 mg PO BEDTIME 08/19/23 08/19/23 selenium sulfide 2.5 % lotion 1 appl topical 3XW PRN DANDRUFF 08/19/23 08/19/23 sennosides 8.6 mg tablet (senna) 8.6 mg PO BEDTIME PRN Constipation 08/19/23 08/19/23 Previous Rx's ?Medication ?Instructions ?Recorded hydroxyzine HCl 50 mg tablet 50 mg PO QID PRN anxiety 30 days 07/24/23 #90 tabs melatonin 5 mg tablet 10 mg (2 x 5 mg) PO BEDTIME PRN 07/24/23 sleep/early waking 30 days #60 tabs amlodipine 10 mg tablet 10 mg PO DAILY #30 tabs 09/23/23 clonazepam 0.5 mg tablet 0.5 mg PO BID@0900,1700 PRN 09/23/23 anxiety 30 days #30 tabs metoprolol tartrate 25 mg tablet 25 mg PO BID #60 tabs 09/23/23 olanzapine 2.5 mg tablet 2.5 mg PO DAILY PRN 09/23/23 anxiety/agitation #30 tabs olanzapine 5 mg tablet 5 mg PO BID #60 tabs 09/23/23 omeprazole 40 mg capsule,delayed 40 mg PO BID@0630,1630 #60 caps 09/23/23 release ondansetron 4 mg disintegrating 4 mg PO Q8H PRN nausea/vomiting 09/23/23 tablet #30 tabs polyethylene glycol 3350 17 17 g PO BID PRN constipation #60 09/23/23 gram/dose oral powder grams tamsulosin 0.4 mg capsule 0.4 mg PO DAILY #30 caps 09/23/23 zolpidem 5 mg tablet 5 mg PO BEDTIME #30 tabs 09/23/23 Allergies Allergy/AdvReac Type Severity Reaction Status Date / Time trazodone [TRAZODONE] Allergy Severe FACIAL Verified 08/19/23 02:58 SWELLING, swelling cat dander [CATS] Allergy Intermediate FACIAL Verified 08/19/23 02:58 ITCHING doxepin [DOXEPIN] Allergy Intermediate WEIGHT Verified 08/19/23 02:58 GAIN/LEG SWELLING Iodinated Contrast Media Allergy Intermediate ITCHING Verified 08/19/23 02:58 [IV DYE, IODINE CONTAINING CONTRAST ] nitroglycerin [NITROGLYCERIN] Allergy Unknown UNKNOWN Verified 08/19/23 02:58 tramadol [TRAMADOL] Allergy Unknown UNKNOWN, Verified 08/19/23 02:58 dry mouth ibuprofen [From MOTRIN] AdvReac Intermediate GI UPSET Verified 08/19/23 02:58 quetiapine [From SEROQUEL] AdvReac Intermediate FACIAL Verified 08/19/23 02:58 SWELLING aspirin [ASPIRIN] AdvReac Mild Stomach Verified 08/19/23 02:58 Upset Ibuprofen Allergy Unknown stomach Uncoded 08/19/23 02:58 ache IV contrast Allergy Unknown Unknown Uncoded 08/03/23 20:27 Motrin Allergy Unknown stomach Uncoded 08/03/23 20:27 pain PMFSH Past Medical History Medical History (Updated 10/08/23 @ 13:54 by NASRIN Carreon) Polysubstance abuse Chronic constipation MDD (major depressive disorder), recurrent, severe, with psychosis Alcohol use disorder Schizoaffective disorder Opioid use disorder Cocaine use disorder Fever, unknown origin Low TSH level Alcohol dependence Opioid abuse Chest pain Weight loss Dysphagia Major depressive disorder, 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 GERD (gastroesophageal reflux disease) Anxiety Surgical History History of colonoscopy History of cystoscopy H/O umbilical hernia repair Family History Family History Father HTN (hypertension) Diabetes Mother HTN (hypertension) Stroke Alzheimer disease Heart disease Social History Social History Household Members: Unknown / Unable to assess Housing: Unknown / Unable to assess Do you presently have visiting nurse or other home services: Yes Alcohol intake: former Comment: bilateral wrist restraints for airway safety Patient Tobacco Use Status: Former Tobacco user Tobacco use type: Cigarette Cigarette Packs Per Day: 12 Cigarettes Per Day: 240.0 Years Smoked: 12 e-Cigarette/Vaping Use: Never Used Second Hand Smoke Exposure: Yes Substance Use Type: Unknown Advance Directives Date on File: 02/14/20 service: No Current occupational status: unemployed and disabled Sexual orientation: Straight/Heterosexual Physical Exam ED Vital Signs: BMI result Body Mass Index 27.3 Course Course Course Narrative: This is an RME: Additional HPI, ROS, PE not included below will be deferred to primary provider. 53 yo m with pmhx of osteoarthritis presents with atraumatic l knee pain X 1 week. Reports swelling to l knee. Denies numbness, tingling. Discharge Plan Discharge Clinical Impression: Eloped from emergency department Patient Disposition: Left W/O Completing Treatment Prescriptions: No Action loperamide [Anti-Diarrheal (loperamide)] 2 mg tablet 2 mg PO Q6H PRN (Reason: Loose Stool) hydroxyzine HCl 50 mg tablet 50 mg PO QID PRN (Reason: anxiety) 30 Days Qty: 90 0RF melatonin 5 mg tablet 10 mg PO BEDTIME PRN (Reason: sleep/early waking) 30 Days Qty: 60 0RF capsaicin 0.025 % cream 1 appl topical TID mirtazapine 15 mg tablet 15 mg PO BEDTIME albuterol sulfate [Ventolin HFA] 90 mcg/actuation HFA aerosol inhaler 2 puff INHALATION Q4-6H PRN (Reason: Shortness Of Breath Or Wheezing) fluticasone propionate 50 mcg/actuation spray,suspension 1 - 2 spray intranasal DAILY metformin 500 mg tablet extended release 24 hr 500 mg PO QPM Rx Instructions: With evening meal cholecalciferol (vitamin D3) 25 mcg (1,000 unit) capsule 25 mcg PO DAILY selenium sulfide 2.5 % lotion 1 appl topical 3XW PRN (Reason: DANDRUFF) Rx Instructions: APPLY TOPICALLY 3 TIMES A WEEK NEEDED. LATHER ON SCALP, LEAVE ON FOR 5 MINUTES, THEN RINSE. (FOR DANDRUFF) sennosides [senna] 8.6 mg tablet 8.6 mg PO BEDTIME PRN (Reason: Constipation) olanzapine 5 mg Tablet 5 mg PO BID Qty: 60 0RF olanzapine 2.5 mg Tablet 2.5 mg PO DAILY PRN (Reason: anxiety/agitation) Qty: 30 0RF omeprazole 40 mg Capsule,Delayed Release(Dr/Ec) 40 mg PO BID@0630,1630 Qty: 60 0RF tamsulosin 0.4 mg Capsule 0.4 mg PO DAILY Qty: 30 0RF amlodipine 10 mg Tablet 10 mg PO DAILY Qty: 30 0RF Protocol: Hold for SBP< HOLD for SBP < : 90 zolpidem 5 mg Tablet 5 mg PO BEDTIME Qty: 30 0RF metoprolol tartrate 25 mg Tablet 25 mg PO BID Qty: 60 0RF Protocol: Hold for SBP/HR < HOLD for SBP < : 90 HOLD for HR < : 60 polyethylene glycol 3350 17 gram/dose powder 17 g PO BID PRN (Reason: constipation) Qty: 60 0RF ondansetron 4 mg tablet,disintegrating 4 mg PO Q8H PRN (Reason: nausea/vomiting) Qty: 30 0RF clonazepam 0.5 mg Tablet 0.5 mg PO BID@0900,1700 PRN (Reason: anxiety) 30 Days Qty: 30 0RF Interventions: MICHELEBS Worksheet Last Done: 08/03/23 23:03 Discharge Date/Time: 08/03/23 23:03
== END 2023-08-03 23:03 | disposition left against medical advice (07) ==
PROVIDERS: Emergency Provider Emergency Medicine; PCP Internal Medicine
DX: M25.562 Pain in left knee (principal); Z79.899 Other long term (current) drug therapy
CPT/HCPCS: 99281

== ENCOUNTER 2023-08-10 10:15 | Outpatient (REF) | payer MEDICAID, SELFPAY ==
[2023-08-10 11:27] LABS: MANUAL DIFF FLAG NO
[2023-08-10 11:34] LABS: Basophils Absolute Auto 0.1 X10*3/uL (0.0-0.2); Basophils Percent Auto 0.6 % (0-2); Eosinophils Absolute Auto 0.3 X10*3/uL (0.0-0.4); Eosinophils Percent Auto 3.1 % (0-4); Hematocrit 39.2 % (42.0-52.0); Hemoglobin 12.5 g/dl (14.0-18.0); Imm Gran Abs Auto 0.05 X10*3/uL (0.00-0.03); Imm Gran Pct Auto 0.5 % (0.0-0.4); Lymphocytes Absolute Auto 1.6 X10*3/uL (1.2-4.9); Lymphocytes Percent Auto 14.4 % (20-40); Mean Corpuscular HGB Conc 31.9 g/dl (31.0-36.0); Mean Corpuscular Hemoglobin 28.5 pg (27.0-33.0); Mean Corpuscular Volume 89.5 fL (80.0-98.0); Mean Platelet Volume 9.7 fL (9.4-12.4); Monocytes Absolute Auto 0.7 X10*3/uL (0.1-1.2); Monocytes Percent Auto 6.7 % (2-11); Neutrophils Percent Auto 74.7 % (45-73); Platelet Count 345 X10*3/uL (160-400); Red Blood Count 4.38 X10*6/uL (4.60-5.80); Red Cell Distribution Width 15.4 % (11.0-16.0); White Blood Count 10.7 X10*3/uL (4.8-10.8)
[2023-08-10 11:55] LABS: Alanine Aminotransferase 16 U/L (0-40); Albumin Level 4.3 g/dL (3.5-5.0); Alkaline Phosphatase 98 U/L (39-117); Anion Gap 16 (12-20); Aspartate Amino Transferase 20 U/L (5-37); Bilirubin Total 0.6 mg/dL (0.0-1.0); Blood Urea Nitrogen 9 mg/dL (9-16); Calcium 10.2 mg/dL (8.4-10.2); Carbon Dioxide 30 mmol/L (22-29); Chloride 98 mmol/L (96-108); Estimated Glomerular Filt Rate > 60; Glucose Random 121 mg/dL (60-115); Lipase 11 U/L (8-78); Potassium 4.1 mmol/L (3.3-5.1); Sodium 140 mmol/L (135-145); Total Protein 8.5 g/dL (6.5-8.0)
== END 2023-08-10 10:16 | disposition home or self-care (01) ==
LOC: HO.HHCL 10:15
PROVIDERS: Visit Provider Emergency Medicine
DX: R68.83 Chills (without fever) (principal)
CPT/HCPCS: 36415; 80053; 83690; 85025

== ENCOUNTER 2023-08-11 10:01 | Outpatient (REF) | payer MEDICAID, SELFPAY ==
[2023-08-11 12:48] LABS: Magnesium 1.9 mg/dL (1.6-2.6)
== END 2023-08-11 10:02 | disposition home or self-care (01) ==
LOC: HO.HHCL 10:01
PROVIDERS: Visit Provider Internal Medicine
DX: R11.0 Nausea (principal); R68.83 Chills (without fever)
CPT/HCPCS: 36415; 83735

== ENCOUNTER 2023-08-19 02:03 | Inpatient (IN) | payer MEDICAID, SELFPAY ==
[2023-08-19] VITALS (37 sets, daily range): BP systolic 71–181; BP diastolic 41–110; PULSE 60–113; RESP 4–25; TEMP 29–38.9; O2SAT 92–100; BMI 24.9
--- NOTE | ~2023-08-19 | CT_ITS ---
EXAMINATION: CT FACIAL BONES WITHOUT CONTRAST CLINICAL INFORMATION: Fall with face trauma. COMPARISON: None available. TECHNIQUE: CT of the head and maxillofacial structures was performed without intravenous contrast. Multiplanar reformats were rendered and reviewed. This CT examination was performed using dose optimization techniques as appropriate, variously including the following: *Automated exposure control *Adjustment of mA and/or kV according to patient size (this includes techniques or standardized protocols for targeted exams where dose is matched to indication/reason for exam; i.e. extremities or head) *Use of iterative reconstruction technique DLP: 1450 mGy-cm. FINDINGS: No significant preseptal soft tissue swelling is appreciated. The orbital osman and orbital rims appear intact. There is no infiltration of the intraorbital fat or evidence of retrobulbar hematoma. The extraocular muscles and optic nerve sheath complexes are symmetric and normal in appearance. The globes appear normal and symmetric. The zygomas and zygomaticomaxillary buttresses appear intact. The nasal bones and cyge-ecbymj-isofmas complex appear intact. Mild deviation of the nasal septum toward the right. Left danial bullosa. The maxillary alveolus and hard palate appear intact. The mandible appears intact, with mandibular condyles normally positioned within the glenoid fossa. The osseous structures of the central skull base appear intact. Mild mucosal thickening involving the maxillary sinuses and bilateral frontal sinus infundibula. No air-fluid level. The mastoid air cells and middle ear cavities appear clear. Left mandibular dental disease. CT/CT facial bones wo IV con IMPRESSION: No acute finding. Additional findings, as above.
--- NOTE | ~2023-08-19 | XR_ITS ---
EXAMINATION: XR CHEST CLINICAL INFORMATION: Hypoxia COMPARISON: 08/29/2023 TECHNIQUE: Frontal view of the chest was obtained. FINDINGS: The lung volumes are low. The cardiomediastinal silhouette is stable. There is an endotracheal tube in a stable position. A right central line is also a stable position. A gastric tube extends below the diaphragm into the upper abdomen. Tip of the gastric tube is not seen. Diffuse bilateral infiltrates are again seen. There are no significant pleural effusions. The bony structures and soft tissues are unremarkable. XR/XR chest 1V IMPRESSION: 1. Lines and tubes in stable position. The tip of the gastric tube is not seen. 2. Stable diffuse bilateral infiltrates.
--- NOTE | ~2023-08-19 | XR_ITS ---
EXAMINATION: XR CHEST CLINICAL INFORMATION: Question pneumonia COMPARISON: 09/04/2023 TECHNIQUE: Frontal view of the chest was obtained. FINDINGS: Right IJ central line tip in the region of the cavoatrial junction. Lung volumes are symmetric. No focal consolidation is seen. No evidence of pneumothorax or significant pleural effusion. Possible mild central peribronchial thickening. The cardiomediastinal contour is unremarkable. No acute osseous findings are seen. XR/XR chest 1V IMPRESSION: No focal consolidation. Possible mild central peribronchial thickening which may reflect airways disease.
--- NOTE | ~2023-08-19 | CT_ITS ---
EXAMINATION: CT CHEST WITHOUT CONTRAST CLINICAL INFORMATION: Found down. Hypoxic. COMPARISON: 04/07/2020 TECHNIQUE: Multidetector volumetric CT imaging of the chest was done. Axial MIP volume rendering provided. Sagittal and coronal reformatted images were obtained. This CT examination was performed using dose optimization techniques as appropriate, variously including the following: *Automated exposure control *Adjustment of mA and/or kV according to patient size (this includes techniques or standardized protocols for targeted exams where dose is matched to indication/reason for exam; i.e. extremities or head) *Use of iterative reconstruction technique DLP: 365.27 mGy-cm FINDINGS: [employer]ATIONAL EXCHANGE COORDINATOR: Bilateral infiltrates are seen greater on the right. LUNGS: The endotracheal tube extends into the proximal right mainstem bronchus. There is a large right lower lobe infiltrate with similar infiltrates in the right upper lobe and middle lobe. There is also left lower lobe infiltrate and a small left apical groundglass infiltrate. MEDIASTINUM: The mediastinum is normal. CORONARY ARTERY CALCIFICATION: Moderate, most prominent within the left coronary artery. PLEURA: There is no pleural effusion. No pleural mass or thickening. AXILLA: No lymphadenopathy. UPPER ABDOMEN: A gastric tube extends into the stomach. There is a partially imaged cyst upper pole left kidney measuring 5 cm. There is fatty infiltration of the pancreas. OSSEOUS STRUCTURES: Unremarkable. CT/CT chest wo IV con IMPRESSION: Endotracheal tube extends into the proximal right mainstem bronchus. Recommend 3 cm retraction. Bilateral pulmonary infiltrates, right greater than left. Coronary artery calcification. Fleischner guidelines were followed.
--- NOTE | ~2023-08-19 | XR_ITS ---
EXAMINATION: XR CHEST CLINICAL INFORMATION: Intubation COMPARISON: Previous chest x-ray 09/09/2023 TECHNIQUE: Frontal view of the chest was obtained. FINDINGS: Endotracheal tube tip 4.7 cm above the dayana. Nasogastric tube projects over proximal to mid stomach. Right jugular line tip projects over SVC. The cardiac and mediastinal contours are stable. Question left central bronchial wall thickening. Left lung base not well-visualized due to overlying pads. Right lung is clear. No right pleural effusion. No pneumothorax. XR/XR chest 1V IMPRESSION: Satisfactory position of endotracheal tube and nasogastric tube.
--- NOTE | ~2023-08-19 | CT_ITS ---
EXAMINATION: CT HEAD WITHOUT CONTRAST CT CERVICAL SPINE WITHOUT CONTRAST CLINICAL INFORMATION: Found down. COMPARISON: None available. TECHNIQUE: Contiguous axial imaging was performed through the head and cervical spine without intravenous administration of contrast. Sagittal and coronal reformatted images also obtained. This CT examination was performed using dose optimization techniques as appropriate, variously including the following: *Automated exposure control *Adjustment of mA and/or kV according to patient size (this includes techniques or standardized protocols for targeted exams where dose is matched to indication/reason for exam; i.e. extremities or head) *Use of iterative reconstruction technique DLP: 674.20+386.56 mGy-cm FINDINGS: There is mild cerebral volume loss with prominence of the lateral and the third ventricles. The cortical sulci are widened appropriately. The fourth ventricle and basal cisterns are normally outlined. There is mild bilateral periventricular and central white matter diminished attenuation. There is no acute territorial defect, hemorrhage or midline shift. The extra-axial spaces are unremarkable. Calvarium: Intact. Maxillofacial sinuses and mastoids: There is a right sphenoid sinus opacity. There is mucosal thickening of the visualized left maxillary sinus. Cervical spine: There is mild C4-C5 to C6-C7 disc degenerative change with loss of disc space, endplate change and posterior osteophytes associated with mild diffuse facet osteoarthritic hypertrophic change with multilevel mild spinal canal and mild neuroforaminal narrowing. The bone mineralization is within normal limits. No fracture is seen. The soft tissues are unremarkable. There is a right upper lung field infiltrate. There is a groundglass infiltrate left upper lung field. The patient is intubated. A gastric tube is noted. CT/CT cervical spine wo IV con IMPRESSION: 1. No acute intracranial process seen. 2. There is no acute cervical spine fracture or dislocation. There are degenerative disc changes and facet joint arthropathy as described above. 3. Bilateral upper lung field infiltrates. 4. Right sphenoid sinus opacity.
--- NOTE | ~2023-08-19 | XR_ITS ---
EXAMINATION: XR CHEST CLINICAL INFORMATION: NG tube placement COMPARISON: Chest x-ray September 09, 2023 TECHNIQUE: Frontal portable view of the chest was obtained. 1618 hours FINDINGS: Tubes and lines: 1. No change position of the right IJ catheter tip at the cavoatrial junction region. 2. Enteric sidehole and the catheter tip in stomach. Lung volume low. No focal consolidation. No pleural effusion. XR/XR chest 1V IMPRESSION: 1. No change position of the right IJ catheter tip at the cavoatrial junction region. 2. Enteric sidehole and the catheter tip in stomach. 3. No acute abnormality of chest.
--- NOTE | ~2023-08-19 | XR_ITS ---
EXAMINATION: XR PELVIS CLINICAL INFORMATION: Fall. Bruise. Pain. COMPARISON: None available. TECHNIQUE: AP view of the pelvis. FINDINGS: The bone mineralization is within normal limits. No fracture is seen. The hip joints are maintained. An apparent bladder catheter is noted in place. There is lower lumbar fusion involving L3 and L4. XR/XR pelvis 1-2V IMPRESSION: 1. No acute fracture or dislocation. 2. Lower lumbar fusion.
--- NOTE | ~2023-08-19 | XR_ITS ---
EXAMINATION: XR CHEST CLINICAL INFORMATION: Line placement COMPARISON: None available. TECHNIQUE: Frontal portable view of the chest was obtained. 2:55 PM FINDINGS: Tubes and lines: 1. Endotracheal tube 4 cm above the dayana. 2. Right IJ catheter tip at caval atrial junction. 3. Enteric catheter passing below diaphragm into the stomach. Catheter tip below lower margin of the film. Sidehole of the catheter is seen within the stomach. 4. Esophageal temperature probe in the distal esophagus. Lung volume low. This accentuates the bronchovascular markings. Prominent lung markings are similar to chest x-ray August 30, 2023. No overt pulmonary edema. No focal consolidation. No pleural effusion. Cardiac and mediastinal contours are normal. Heart size is normal. There is no pneumothorax. XR/XR chest 1V IMPRESSION: 1. Endotracheal tube 4 cm above the dayana. 2. Right IJ catheter tip at caval atrial junction. There is no pneumothorax. 3. Enteric catheter passing below diaphragm into the stomach. Catheter tip below lower margin of the film. 4. Esophageal temperature probe in the distal esophagus. 5. Low lung volume with prominent bronchovascular markings similar in severity to August 30, 2023 chest radiograph.
--- NOTE | ~2023-08-19 | CT_ITS ---
EXAMINATION: CT ABDOMEN AND PELVIS WITHOUT CONTRAST CLINICAL INFORMATION: Abdominal distention. Vomiting. COMPARISON: 07/01/2023. TECHNIQUE: Multidetector volumetric imaging was performed from the superior aspect of the liver through the pubic symphysis. Sagittal and coronal reformatted images were obtained on the technologist's workstation. This CT examination was performed using dose optimization techniques as appropriate, variously including the following: *Automated exposure control *Adjustment of mA and/or kV according to patient size (this includes techniques or standardized protocols for targeted exams where dose is matched to indication/reason for exam; i.e. extremities or head) *Use of iterative reconstruction technique DLP: 882 mGy-cm FINDINGS: LUNG BASES: The visualized lung bases are unremarkable. LIVER, GALLBLADDER, AND BILIARY TREE: The liver is normal in size, shape, and attenuation. No focal hepatic lesion or biliary ductal dilatation is present. The gallbladder is unremarkable with no evidence of radiopaque gallstones, gallbladder wall thickening, or obvious pericholecystic inflammatory changes. PANCREAS: Unremarkable. SPLEEN: Unremarkable. ADRENAL GLANDS: Unremarkable. KIDNEYS AND URETERS: The kidneys are normal in size, shape, and attenuation. No hydronephrosis, hydroureter, or calculi seen. No perinephric stranding. There is a stable 4.7 cm cyst midpole left kidney. BLADDER: The bladder is decompressed with a Bess catheter in place. GASTROINTESTINAL TRACT: The small and large bowel are unremarkable. The appendix is unremarkable. There is mild thickening of the visualized distal esophagus. ABDOMINAL WALL: No significant hernia is appreciated. LYMPH NODES: Normal. VASCULAR: Mild atherosclerotic plaque of the abdominal aorta. PELVIC VISCERA: Unremarkable. OSSEOUS STRUCTURES: There is posterior L3-L4 fusion. CT/CT abdomen pelvis wo IV con IMPRESSION: 1. Mild thickening of the visualized distal esophagus. This could be due to esophagitis. 2. Otherwise, no acute abnormality within the abdomen or pelvis. Fleischner guidelines were followed.
--- NOTE | ~2023-08-19 | XR_ITS ---
EXAMINATION: XR CHEST CLINICAL INFORMATION: Endotracheal tube placement. COMPARISON: Most recent CT chest dated 08/19/2023. TECHNIQUE: Frontal view of the chest was obtained. FINDINGS: Endotracheal tube with the tip approximately 4.2 cm proximal to the dayana. Right-sided central venous catheter with the tip in the region of the cavoatrial junction. Diffuse, patchy right-sided airspace opacities which appear slightly more prominent when compared to the recent chest CT. Previously seen left lower lobe airspace consolidation not well visualized on plain radiographs. No pleural effusion or pneumothorax. Stable cardiomediastinal silhouette. XR/XR chest 1V IMPRESSION: 1. Endotracheal tube with its tip approximately 4.2 cm proximal to the dayana. Right-sided central venous catheter in appropriate position. 2. Diffuse, patchy right-sided airspace opacities which appear slightly more prominent when compared to the recent chest CT. Previously seen left lower lobe airspace consolidation not well visualized on plain radiographs.
--- NOTE | ~2023-08-19 | XR_ITS ---
EXAMINATION: XR CHEST CLINICAL INFORMATION: Aspiration pneumonia COMPARISON: 09/08/2023 TECHNIQUE: Frontal view of the chest was obtained. FINDINGS: Right IJ central line tip in the region of the cavoatrial junction. The lungs are mildly hypoinflated. No focal consolidation is seen. Mild interstitial prominence is again noted bilaterally. No evidence of pneumothorax or significant pleural effusion. The cardiomediastinal silhouette is stable. No acute osseous findings are seen. XR/XR chest 1V IMPRESSION: No focal consolidation. Mild interstitial prominence is again noted, similar to prior and which may represent airways disease or possibly subtle vascular congestion.
--- NOTE | ~2023-08-19 | CT_ITS ---
EXAMINATION: CT HEAD WITHOUT CONTRAST CT CERVICAL SPINE WITHOUT CONTRAST CLINICAL INFORMATION: Fall with head strike. COMPARISON: CT scans dating between 08/19/2023 and 03/19/2009. TECHNIQUE: CT of the head and cervical spine were performed without intravenous contrast. Multiplanar reformats were rendered and reviewed. This CT examination was performed using dose optimization techniques as appropriate, variously including the following: *Automated exposure control *Adjustment of mA and/or kV according to patient size (this includes techniques or standardized protocols for targeted exams where dose is matched to indication/reason for exam; i.e. extremities or head) *Use of iterative reconstruction technique DLP: 1458 mGy-cm. FINDINGS: CT head: No intracranial hemorrhage, large infarction, or mass lesion is seen. Mild diffuse cortical atrophy and chronic bilateral periventricular white matter ischemic change. No extra-axial collection is appreciated. The ventricles are normal in size and configuration without evidence of hydrocephalus. The visualized paranasal sinuses and mastoid air cells are clear. Mild deviation of the nasal septum toward the right. Left danial bullosa. CT cervical spine: The vertebral body heights appear maintained. No cervical spine fracture is seen. The cervical alignment appears normal. Mild degenerative change most notable at T6-C7, with mild neuroforaminal narrowing at this level, worse on the right. The paraspinal soft tissues appear within normal limits. The partially imaged lung apices appear clear. CT/CT head/brain wo IV con IMPRESSION: CT head: No acute intracranial finding. CT cervical spine: No cervical spine fracture or traumatic malalignment identified.
--- NOTE | ~2023-08-19 | XR_ITS ---
EXAMINATION: XR CHEST CLINICAL INFORMATION: Hypoxia COMPARISON: 08/19/2023 TECHNIQUE: Frontal view of the chest was obtained. FINDINGS: ET tube NG tube and central line satisfactory position. Overall improved aeration on the right with less dense alveolar consolidation. Diffuse bilateral infiltrates however persists. No measurable parapneumonic effusion. Heart size remains prominent. XR/XR chest 1V IMPRESSION: Overall improved aeration on the right with persistent diffuse bilateral infiltrates.
--- NOTE | ~2023-08-19 | XR_ITS ---
EXAMINATION: XR CHEST CLINICAL INFORMATION: Dyspnea. COMPARISON: 07/13/2023 TECHNIQUE: Frontal view of the chest was obtained. FINDINGS: The cardiomediastinal silhouette is stable. There is an endotracheal tube seen approximately 1 cm above the dayana. A gastric tube extends below the diaphragm with side port below the gastroesophageal junction. A right central line overlies the lower SVC/right atrial junction. There are bilateral mid to lower lung field infiltrates greater on the right. There are no significant pleural effusions. The bony structures and soft tissues are unremarkable. XR/XR chest 1V IMPRESSION: Lines and tubes in place as stated above. The endotracheal tube is approximately 1 cm above the dayana. Consider retracting 1 to 2 cm. Bilateral mid to lower lung field infiltrates greater on the right, possibly pneumonia
--- NOTE | ~2023-08-19 | MR_ITS ---
EXAMINATION: MR BRAIN WITHOUT CONTRAST CLINICAL INFORMATION: Persistent encephalopathy. COMPARISON: Head CT dated 08/19/2023. TECHNIQUE: Multiplanar, multisequence imaging of the brain was performed without contrast. FINDINGS: Symmetric T2 hyperintense signal abnormality is visible within the globus pallidus bilaterally with corresponding mild T1 hyperintensity and low signal on the gradient acquisition. No diffusion abnormalities are identified to suggest an acute infarct. There are mild patchy areas of T2 hyperintense signal change in the cerebral white matter of both hemispheres and in the denita. Generalized brain parenchymal volume loss noted with commensurate ex vacuo prominence of the ventricles. No mass effect or midline shift is seen. No extra-axial fluid collections are seen. The cerebellum is normal. The craniovertebral junction, marrow signal, and midline structures are normal. The major intracranial flow voids at the level of the [place] are preserved. The dural venous sinus flow voids are maintained. There is a [id number] amount of fluid in the mastoid air cells, left greater than right side. Mild mucosal thickening also visible in the paranasal sinuses. MR/MR head/brain wo con IMPRESSION: No acute intracranial process. Symmetric signal abnormality in the globus pallidus of both basal ganglia, which can be seen in the setting of toxic and metabolic encephalopathies; clinically correlate. Mild chronic white matter microangiopathy.
--- NOTE | ~2023-08-19 | XR_ITS ---
EXAMINATION: XR CHEST CLINICAL INFORMATION: Reason for Exam Fever COMPARISON: Chest radiograph 09/11/2023 TECHNIQUE: One view of the chest FINDINGS: Lines and tubes: EKG leads overlie the patient. Initially imaged lumbar fusion hardware. Low lung volumes with bronchovascular crowding and new streaky left basilar opacities. No pleural effusion. No pneumothorax. Unchanged cardiomediastinal silhouette. XR/XR chest 1V IMPRESSION: Low lung volumes with bronchovascular crowding and new streaky left basilar opacities suggesting atelectasis, though aspiration or infection in the setting of fever would be difficult to exclude.
--- NOTE | ~2023-08-19 | CT_ITS ---
EXAMINATION: CT HEAD WITHOUT CONTRAST CT CERVICAL SPINE WITHOUT CONTRAST CLINICAL INFORMATION: Fall with head strike. COMPARISON: CT scans dating between 08/19/2023 and 03/19/2009. TECHNIQUE: CT of the head and cervical spine were performed without intravenous contrast. Multiplanar reformats were rendered and reviewed. This CT examination was performed using dose optimization techniques as appropriate, variously including the following: *Automated exposure control *Adjustment of mA and/or kV according to patient size (this includes techniques or standardized protocols for targeted exams where dose is matched to indication/reason for exam; i.e. extremities or head) *Use of iterative reconstruction technique DLP: 1458 mGy-cm. FINDINGS: CT head: No intracranial hemorrhage, large infarction, or mass lesion is seen. Mild diffuse cortical atrophy and chronic bilateral periventricular white matter ischemic change. No extra-axial collection is appreciated. The ventricles are normal in size and configuration without evidence of hydrocephalus. The visualized paranasal sinuses and mastoid air cells are clear. Mild deviation of the nasal septum toward the right. Left danial bullosa. CT cervical spine: The vertebral body heights appear maintained. No cervical spine fracture is seen. The cervical alignment appears normal. Mild degenerative change most notable at T6-C7, with mild neuroforaminal narrowing at this level, worse on the right. The paraspinal soft tissues appear within normal limits. The partially imaged lung apices appear clear. CT/CT cervical spine wo IV con IMPRESSION: CT head: No acute intracranial finding. CT cervical spine: No cervical spine fracture or traumatic malalignment identified.
[2023-08-19] MEDS: Etomidate 20 MG/10 ML VIAL IVPUSH (02:15)
[2023-08-19] MEDS: Rocuronium Bromide 50 MG/5 ML VIAL IVPUSH (02:15)
--- NOTE | 2023-08-19 02:20 | ECG_ITS ---
Test Reason : UNRESPONSIVE Blood Pressure : / mmHG Vent. Rate : 100 BPM Atrial Rate : 100 BPM P-R Int : 140 ms QRS Dur : 094 ms QT Int : 346 ms P-R-T Axes : 026 -01 020 degrees QTc Int : 446 ms Normal sinus rhythm Minimal voltage criteria for LVH, may be normal variant ( R in aVL ) Borderline ECG When compared with ECG of 15-JUL-2023 11:48, QRS duration has increased Referred By: Elaina Maravilla Electronically Signed By:MARIE LOCKWOOD MD
[2023-08-19] MEDS: 0.9 % Sodium Chloride 1,000 ML 999 ML IV ×2 (02:30→04:00)
[2023-08-19 02:34] LABS: MANUAL DIFF FLAG NO
[2023-08-19 02:35] LABS: Basophils Absolute Auto 0.1 X10*3/uL (0.0-0.2); Basophils Percent Auto 0.3 % (0-2); Eosinophils Percent Auto 0.2 % (0-4); Hematocrit 38.7 % (42.0-52.0); Imm Gran Abs Auto 0.13 X10*3/uL (0.00-0.03); Imm Gran Pct Auto 0.7 % (0.0-0.4); Lymphocytes Absolute Auto 1.5 X10*3/uL (1.2-4.9); Lymphocytes Percent Auto 8.1 % (20-40); Mean Corpuscular Hemoglobin 28.7 pg (27.0-33.0); Mean Corpuscular Volume 92.6 fL (80.0-98.0); Mean Platelet Volume 8.8 fL (9.4-12.4); Monocytes Percent Auto 5.8 % (2-11); Neutrophils Absolute Auto 15.2 x10*3/uL (2.0-8.3); Neutrophils Percent Auto 84.9 % (45-73); Platelet Count 266 X10*3/uL (160-400); Red Blood Count 4.18 X10*6/uL (4.60-5.80); Red Cell Distribution Width 15.8 % (11.0-16.0); White Blood Count 17.9 X10*3/uL (4.8-10.8)
[2023-08-19 02:38] LABS: Venous Blood Gas Refer to POC result
[2023-08-19 02:40] LABS: VBG Base Excess -9.4 mmol/L; VBG HCO3 21 mmol/L (22-26); VBG pCO2 68 mmHg; VBG pH 7.09 (7.32-7.43); VBG pO2 59 mmHg
[2023-08-19 02:40] LABS: Prothrombin Time 12.5 SEC (11.1-13.3)
[2023-08-19 02:43] LABS: Ammonia 42 umol/L (13-55)
[2023-08-19 02:45] LABS: Glucose, Whole Blood 184 mg/dL (60-115)
--- NOTE | 2023-08-19 02:45 | ED.AMS ---
HPI - Altered Mental Status General Chief Complaint: ETOH/Substance Use Stated Complaint: od Time Seen by Provider: 08/19/23 02:20 Source: EMS and old records reviewed Mode of arrival: EMS Limitations: altered mental status History of Present Illness HPI narrative: 53 yo male with PMH of depression, GERD, dysphagia, BPH, bipolar, anemia, alcohol and opiate abuse, anxiety, GI bleed in past, achalasia s/p heller myotomy and balloon dilations in the past who comes in after 911 called due to male down. EMS reports PD found him unresponsive pinpoint pupils mild response to 8mg but arrived here snoring respirations no response to IM narcan 2mg coffee ground emesis around mouth and on shirt unable to protect airway intermittently opened eyes to painful stimuli but he was intubated for airway protection. His sats on arrival with EMS and us were in the 60s MD complaint: altered mental status, decreased responsiveness and intoxication Onset (ago): unknown Timing confirmed by: other Severity: severe Consistency of symptoms: constant Context: alcohol abuse and drug abuse Associated symptoms: other (vomit all over floor per EMS) Treatments prior to arrival: oxygen and other (8mg narcan BS normal per EMS) Related Data Home Medications ?Medication ?Instructions ?Recorded ?Confirmed albuterol sulfate 90 mcg/actuation 2 puff inhalation Q4-6H PRN 08/19/23 08/19/23 aerosol inhaler (Ventolin HFA) Shortness Of Breath Or Wheezing capsaicin 0.025 % topical cream 1 appl topical TID 08/19/23 08/19/23 cetirizine 10 mg tablet 10 mg PO DAILY 08/19/23 08/19/23 cholecalciferol (vitamin D3) 25 25 mcg PO DAILY 08/19/23 08/19/23 mcg (1,000 unit) capsule diphenhydramine HCl 25 mg tablet 25 mg PO Q6H PRN Itching 08/19/23 08/19/23 (Sindy-Dryl) fluticasone propionate 50 1 - 2 spray intranasal DAILY 08/19/23 08/19/23 mcg/actuation nasal spray,suspension loperamide 2 mg tablet 2 mg PO Q6H PRN Loose Stool 08/19/23 08/19/23 (Anti-Diarrheal (loperamide)) metformin 500 mg tablet,extended 500 mg PO QPM 08/19/23 08/19/23 release 24 hr mirtazapine 15 mg tablet 15 mg PO BEDTIME 08/19/23 08/19/23 ondansetron 4 mg disintegrating 4 mg PO Q8H PRN nausea/vomiting 08/19/23 08/19/23 tablet polyethylene glycol 3350 17 17 g PO BID PRN constipation 08/19/23 08/19/23 gram/dose oral powder selenium sulfide 2.5 % lotion 1 appl topical 3XW PRN DANDRUFF 08/19/23 08/19/23 sennosides 8.6 mg tablet (senna) 8.6 mg PO BEDTIME PRN Constipation 08/19/23 08/19/23 Previous Rx's ?Medication ?Instructions ?Recorded amitriptyline 100 mg tablet 100 mg PO BEDTIME 30 days #30 tabs 07/24/23 amitriptyline 25 mg tablet 25 mg PO BEDTIME 30 days #30 tabs 07/24/23 benztropine 0.5 mg tablet 0.5 mg PO BID 30 days #60 tabs 07/24/23 clonazepam 0.5 mg tablet 0.5 mg PO BID@0900,1700 30 days 07/24/23 #60 tabs clonidine HCl 0.2 mg tablet 0.2 mg PO BID 30 days #60 tabs 07/24/23 fluphenazine HCl 5 mg tablet 5 mg PO BID 30 days #60 tabs 07/24/23 hydroxyzine HCl 50 mg tablet 50 mg PO QID PRN anxiety 30 days 07/24/23 #90 tabs melatonin 5 mg tablet 10 mg (2 x 5 mg) PO BEDTIME PRN 07/24/23 sleep/early waking 30 days #60 tabs olanzapine 5 mg tablet 5 mg PO DAILY PRN agitation 30 07/24/23 days #30 tabs omeprazole 20 mg capsule,delayed 20 mg PO DAILY 30 days #30 caps 07/24/23 release zolpidem 12.5 mg tablet,extended 12.5 mg PO BEDTIME PRN insomnia 07/24/23 release,multiphase 30 days #30 tabs Allergies Allergy/AdvReac Type Severity Reaction Status Date / Time trazodone [TRAZODONE] Allergy Severe FACIAL Verified 08/19/23 02:58 SWELLING, swelling cat dander [CATS] Allergy Intermediate FACIAL Verified 08/19/23 02:58 ITCHING doxepin [DOXEPIN] Allergy Intermediate WEIGHT Verified 08/19/23 02:58 GAIN/LEG SWELLING Iodinated Contrast Media Allergy Intermediate ITCHING Verified 08/19/23 02:58 [IV DYE, IODINE CONTAINING CONTRAST ] nitroglycerin [NITROGLYCERIN] Allergy Unknown UNKNOWN Verified 08/19/23 02:58 tramadol [TRAMADOL] Allergy Unknown UNKNOWN, Verified 08/19/23 02:58 dry mouth ibuprofen [From MOTRIN] AdvReac Intermediate GI UPSET Verified 08/19/23 02:58 quetiapine [From SEROQUEL] AdvReac Intermediate FACIAL Verified 08/19/23 02:58 SWELLING aspirin [ASPIRIN] AdvReac Mild Stomach Verified 08/19/23 02:58 Upset Ibuprofen Allergy Unknown stomach Uncoded 08/19/23 02:58 ache IV contrast Allergy Unknown Unknown Uncoded 08/03/23 20:27 Motrin Allergy Unknown stomach Uncoded 08/03/23 20:27 pain Review of Systems Review of Systems: ROS unable to be obtained due to altered mental status [facility] Past Medical History Attestation statement: The following information was validated with the patient. 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 GERD (gastroesophageal reflux disease) Anxiety Surgical History History of colonoscopy History of cystoscopy H/O umbilical hernia repair Family History Family History Father HTN (hypertension) Diabetes Mother HTN (hypertension) Stroke Alzheimer disease Heart disease Social History Social History Household Members: Unknown / Unable to assess Housing: Unknown / Unable to assess Do you presently have visiting nurse or other home services: Yes Alcohol intake: former Comment: bilateral wrist restraints for airway/line safety Patient Tobacco Use Status: Tobacco use Unknown Tobacco use type: Cigarette Cigarette Packs Per Day: 12 Cigarettes Per Day: 240.0 Years Smoked: 12 e-Cigarette/Vaping Use: Never Used Second Hand Smoke Exposure: Yes Substance Use Type: Unknown Advance Directives Date on File: 02/14/20 service: No Current occupational status: unemployed and disabled Sexual orientation: Straight/Heterosexual Physical Exam ED Vital Signs: Vital Signs - 24 hr 08/19/23 02:30 08/19/23 02:53 08/19/23 03:00 Temperature Pulse Rate 106 H Respiratory Rate 22 H Blood Pressure 174/103 H Pulse Oximetry 100 Oxygen Delivery Method Mechanical Ventilation Fraction of Inspired Oxygen 100 100 08/19/23 03:30 08/19/23 04:10 08/19/23 06:01 Temperature Pulse Rate 100 105 H 111 H Respiratory Rate 24 H 24 H 24 H Blood Pressure 173/110 H 181/109 H 129/70 Pulse Oximetry 100 100 100 Oxygen Delivery Method Fraction of Inspired Oxygen 08/19/23 06:21 08/19/23 06:35 08/19/23 07:10 Temperature 100.4 F 100.8 F H 101.3 F H Pulse Rate 113 H 112 H 112 H Respiratory Rate 20 24 H 24 H Blood Pressure 114/74 104/62 Pulse Oximetry 92 100 100 Oxygen Delivery Method Mechanical Ventilation Mechanical Ventilation Mechanical Ventilation Fraction of Inspired Oxygen 08/19/23 07:32 08/19/23 08:14 08/19/23 08:34 Temperature Pulse Rate 105 H 105 H Respiratory Rate Blood Pressure 71/41 L 82/55 L Pulse Oximetry Oxygen Delivery Method Fraction of Inspired Oxygen 50 08/19/23 08:51 08/19/23 09:25 08/19/23 09:25 Temperature 102.0 F H 101.9 F H Pulse Rate 101 H 99 99 Respiratory Rate 24 H 24 H Blood Pressure 97/64 87/55 L 87/55 L Pulse Oximetry 100 97 Oxygen Delivery Method Mechanical Ventilation Mechanical Ventilation Fraction of Inspired Oxygen 08/19/23 09:46 08/19/23 09:46 08/19/23 10:00 Temperature 101.7 F H 101.2 F H Pulse Rate 99 99 99 Respiratory Rate 24 H 24 H Blood Pressure 80/49 L 80/49 L 105/62 Pulse Oximetry 98 98 Oxygen Delivery Method Mechanical Ventilation Mechanical Ventilation Fraction of Inspired Oxygen 08/19/23 10:13 08/19/23 10:13 Temperature 100.6 F H Pulse Rate 102 H 102 H Respiratory Rate 4 L Blood Pressure 125/79 125/79 Pulse Oximetry Oxygen Delivery Method Mechanical Ventilation Fraction of Inspired Oxygen BMI result Body Mass Index 24.9 Appearance: obtunded briefly opens eyes, severe distress Eyes: Pupils sluggish and dilated 5mm ENT: Pharynx coffee ground emesis around mouth and on shirt Neck: Normal inspection. Neck supple. CVS: Normal heart rate and rhythm. Pulses normal. Respiratory: Severe respiratory distress poor effort gurgling sounds heard. Breath sounds coarse and diminished Abdomen: Soft and no trauma seen Hip: bruising started to show up on right hip after a while in the ED xrays ordered. Skin: Skin clammy and cool. [place] color. Extremities: No lower extremity edema. Neuro: cannot participate in exam Course Course Course Narrative: already moved the ETT back prior to CT scan now it is R mainstem bronchus unsure how this happened possibly during transport RT to pull back again to 21cm confirmed on CXR better position Reevaluation(s) Reevaluation #1: given prior calls to other centers tonight we are aware that [facility] system is the only available center call at 615am. [facility] recommend trauma review this though I suspect that this is overdose and aspiration not trauma call to HCP no answer and left message call to daughter no answer call to our [facility] trauma center 627am he has no traumatic injuries at this time this requires medical intervention. medical ICUs are closed. [facility] is still closed [facility] states they will not take the patient until we can get a hold of the HCP I was able to get a hold of Carolyn his [facility] major case detective she is going to try to reach his family members regarding this situation. Call out to [facility] for transfer 720am - no ICU beds available at this time I have asked again about ICU beds available here given the degree of difficulty we are having with ICU transfer at this time. Daughter Laurie is aware she is also trying to reach [facility] 729am. [facility] states okay to transfer to [facility] BP has dropped to 60s levophed ordered Dr. Chaudhary to take over admission Reevaluation #2: I performed a focused sepsis exam. The patient was intubated and sedated. Breath sounds with mechanical ventilation were symmetrical. Heart was regular. Abdomen seemed soft and nontender. No peripheral edema. Time: 09:30 Reevaluation #3: The patient was signed out to me at change of shift. The patient had arrived very acutely ill and had been intubated and given a central line and seems to have a right-sided aspiration pneumonia. The patient had received IV fluids and antibiotics and bicarb. Initially it did not seem like there was an ICU bed available at this hospital for the patient and therefore the previous emergency room physician had contacted multiple hospitals in an attempt to transfer the patient. Ultimately a bed opened up in our ICU when we were able to admit the patient here. Repeat labs showed improved venous blood gas but a new leukopenia and a significant rise in the patient's CPK. Additionally the patient's blood pressure had dropped and the patient has been started on norepinephrine. The bicarb drip had been temporarily stopped because of the improved VBG but once the 2nd CPK came back extremely elevated the bicarb drip was resumed. I spoke to the patient's nephew, Dheeraj, who was also the patient's healthcare proxy and informed him that the patient was being admitted to this hospital. Time: 12:05 Medications Administered Generic Name Dose Route Start Last Admin Trade Name Freq PRN Reason Stop Dose Admin Furosemide 80 mg 08/20/23 09:00 08/21/23 00:13 Furosemide 100 Mg/10 Ml Vial IVPUSH 80 mg Q8H JAMES Administration Protocol Heparin Sodium (Porcine) 5,000 unit 08/19/23 11:00 08/21/23 02:43 Heparin Sodium,Porcine 5,000 Unit/Ml Vial SUBCUT 5,000 unit Q8H JAMES Administration Fentanyl 1,000 mcg in 100 mls @ 0 mls/hr 08/19/23 02:30 08/20/23 23:17 Sublimaze/Ns IVCONT 100 mcg/hr .Q0M JAMES 10 mls/hr Administration Protocol Per Protocol Propofol 1,000 mg in 100 mls @ 0 mls/hr 08/19/23 05:30 08/21/23 05:59 Diprivan IVCONT 30 mcg/kg/min .Q0M JAMES 13.37 mls/hr Administration Protocol Per Protocol Sodium Chloride 1,000 mls @ 250 mls/hr 08/19/23 05:30 08/21/23 04:54 Ns IVCONT 250 mls/hr .Q4H JAMES Administration Norepinephrine Bitartrate 8 mg in 250 mls @ 0 mls/hr 08/19/23 08:15 08/21/23 03:32 Levophed IV 0.02 mcg/kg/min .Q0M JAMES 2.79 mls/hr Titration Protocol Per Protocol Vasopressin 20 unit in 100 mls @ 12 mls/hr 08/19/23 11:00 08/21/23 02:44 Vasostrict IV Not Given .Q8H20M JAMES 0.04 UNIT/MIN Piperacillin Sod/Tazobactam 50 mls @ 100 mls/hr 08/20/23 18:00 08/21/23 06:32 Sod 3.375 gm/ Sodium Chloride IV Infused Q6H JAMES Infusion Pantoprazole Sodium 40 mg 08/20/23 16:30 08/21/23 05:54 Pantoprazole Sodium 40 Mg/10 Ml Vial IVPUSH 40 mg BID@0630,1630 JAMES Administration Discontinued Medications Generic Name Dose Route Start Last Admin Trade Name Freq PRN Reason Stop Dose Admin Acetaminophen 650 mg 08/19/23 06:38 08/19/23 07:07 Acetaminophen Supp 650 Mg Supp.Rect [place] 08/19/23 06:39 650 mg ONCE ONE Administration Etomidate 20 mg 08/19/23 04:13 08/19/23 02:15 Etomidate 20 Mg/10 Ml Vial IVPUSH 08/19/23 04:14 20 mg ONCE ONE Administration Furosemide 80 mg 08/19/23 15:12 08/19/23 15:37 Furosemide 100 Mg/10 Ml Vial IVPUSH 08/19/23 15:13 80 mg ONCE ONE Administration Protocol Piperacillin Sod/Tazobactam 50 mls @ 100 mls/hr 08/19/23 02:20 08/19/23 03:50 Sod 3.375 gm/ Sodium Chloride IV 08/19/23 02:49 Infused ONCE ONE Infusion Pantoprazole Sodium 80 mg/ 100 mls @ 10 mls/hr 08/19/23 02:30 08/20/23 09:29 Sodium Chloride IV Infused .Q10H JAMES Infusion 8 MG/HR Sodium Chloride 1,000 mls @ 999 mls/hr 08/19/23 02:30 08/19/23 09:15 Ns IV 08/19/23 03:30 Infused .Q1H1M JAMES Infusion Midazolam HCl 50 mg in 50 mls @ 2 mls/hr 08/19/23 02:30 08/20/23 15:22 Versed IVCONT Infused .Q24H JAMES Infusion 2 MG/HR Sodium Chloride 500 mls @ 500 mls/hr 08/19/23 03:00 08/19/23 09:15 Ns IV 08/19/23 03:59 Infused .Q1H JAMES Infusion Sodium Chloride 1,000 mls @ 999 mls/hr 08/19/23 03:00 08/19/23 11:45 Ns IV 08/19/23 04:00 Infused .Q1H1M ONE Infusion Sodium Bicarbonate 150 meq/ 1,000 mls @ 150 mls/hr 08/19/23 03:30 08/21/23 02:19 Dextrose IV Not Given .Q6H40M JAMES Vancomycin HCl 2,000 mg in 500 mls @ 250 mls/hr 08/19/23 06:16 08/19/23 08:46 Vancomycin/Ns IV 08/19/23 08:15 Infused ONCE ONE Infusion Lactated Ringer's 1,000 mls @ 999 mls/hr 08/19/23 08:15 08/19/23 11:45 Lr IV 08/19/23 09:15 Infused .Q1H1M JAMSE Infusion Piperacillin Sod/Tazobactam 100 mls @ 200 mls/hr 08/19/23 09:30 08/19/23 11:45 Sod 4.5 gm/ Sodium Chloride IV 08/19/23 09:59 Infused ONCE ONE Infusion Sodium Bicarbonate 150 meq/ 1,000 mls @ 100 mls/hr 08/19/23 11:00 08/19/23 10:59 Dextrose IV Not Given .Q10H JAMES Pantoprazole Sodium 40 mg/ 110 mls @ 400 mls/hr 08/19/23 11:00 08/19/23 12:59 Sodium Chloride IV Not Given DAILY@0630 JAMES Fentanyl 1,000 mcg in 100 mls @ 5 mls/hr 08/19/23 11:00 08/19/23 12:59 Sublimaze/Ns IVCONT Not Given .Q20H JAMES Protocol 50 MCG/HR Piperacillin Sod/Tazobactam 50 mls @ 100 mls/hr 08/19/23 12:00 08/20/23 13:23 Sod 3.375 gm/ Sodium Chloride IV Infused Q8H JAMES Infusion Midazolam HCl 50 mg in 50 mls @ 4 mls/hr 08/19/23 11:45 08/19/23 17:15 Versed IVCONT 08/19/23 17:15 Infused .[id number] JAMES Infusion 4 MG/HR Midazolam HCl 50 mg in 50 mls @ 2 mls/hr 08/19/23 17:15 08/20/23 09:34 Versed IVCONT Infused .Q24H JAMES Infusion 2 MG/HR Magnesium Sulfate 2 gm in 50 mls @ 25 mls/hr 08/19/23 20:26 08/19/23 22:45 Magnesium Sulfate/H2o IV 08/19/23 22:25 Infused ONCE ONE Infusion Magnesium Sulfate 2 gm in 50 mls @ 25 mls/hr 08/19/23 21:37 08/20/23 00:36 Magnesium Sulfate/H2o IV 08/19/23 23:36 Infused ONCE ONE Infusion Potassium Phosphate 15 mmol in 250 mls @ 62.5 mls/hr 08/20/23 07:30 08/20/23 12:38 Kphos IV 08/20/23 11:29 Infused ONCE ONE Infusion Albumin Human 100 mls @ 100 mls/hr 08/20/23 21:45 08/21/23 02:19 Kedbumin 25 % IV 08/21/23 01:44 Infused Q1H JAMES Infusion Naloxone HCl 2 mg 08/19/23 06:58 08/19/23 07:00 Naloxone Hcl 2 Mg/2 Ml Syringe IVPUSH 08/19/23 06:59 2 mg ONCE ONE Administration Pantoprazole Sodium 40 mg 08/19/23 02:20 08/19/23 03:20 Pantoprazole Sodium 40 Mg/10 Ml Vial IVPUSH 08/19/23 02:21 40 mg ONCE ONE Administration Potassium Chloride 40 meq 08/19/23 09:45 08/19/23 09:54 Potassium Chloride Packet 20 Meq Packet [id number]-TUBE 08/19/23 09:46 40 meq ONCE ONE Administration Rocuronium [place] 50 mg 08/19/23 02:21 08/19/23 02:15 Rocuronium [place] 50 Mg/5 Ml Vial IVPUSH 08/19/23 02:22 50 mg ONCE ONE Administration Medical Decision Making Medical Decision Making MDM Narrative: 53 yo male with PMH of depression, GERD, dysphagia, BPH, bipolar, anemia, alcohol and opiate abuse, anxiety, GI bleed in past, achalasia s/p heller myotomy and balloon dilations here with overdose obtundation and poor airway protection with concern for UGIB at this time labs, type and screen, intubation, IV zosyn for presumed aspiration, empiric protonix, IV access, CT of head/cspine and chest given he was found down. Temp sensing andrade ordered as well. We have no ICU beds so once labs resulted will need transfer to tertiary center. Differential Diagnosis Differential Diagnoses: The differential diagnosis associated with the presentation includes overdose, aspiration, UGIB Admission/Observation Consideration of admission/observation: Escalation of care including admission/observation considered Dr. Coyle to admit patient 824am Consult Healthcare Provider Management of the patient was discussed with: House Superintendent (ICU) Lab Data MDM Lab Attestation statement: I reviewed the patient's lab results. 08/21/23 05:07 08/21/23 05:07 Labs: Lab Results 08/19/23 08/19/23 08/19/23 Range/Units 02:06 02:28 02:30 WBC 17.9 H (4.8-10.8) X10*3/uL RBC 4.18 L (4.60-5.80) X10*6/uL Hgb 12.0 L (14.0-18.0) g/dl Hct 38.7 L (42.0-52.0) % MCV 92.6 (80.0-98.0) fL MCH 28.7 (27.0-33.0) pg MCHC 31.0 (31.0-36.0) g/dl RDW 15.8 (11.0-16.0) % Plt Count 266 (160-400) X10*3/uL MPV 8.8 L (9.4-12.4) fL Immature Gran % (Auto) 0.7 H (0.0-0.4) % Neut % (Auto) 84.9 H (45-73) % Lymph % (Auto) 8.1 L (20-40) % [place] % (Auto) 5.8 (2-11) % Eos % (Auto) 0.2 (0-4) % Baso % (Auto) 0.3 (0-2) % Lymph # (Auto) 1.5 (1.2-4.9) X10*3/uL [place] # (Auto) 1.0 (0.1-1.2) X10*3/uL Eos # (Auto) 0.0 (0.0-0.4) X10*3/uL Baso # (Auto) 0.1 (0.0-0.2) X10*3/uL Abs Immat Gran (auto) 0.13 H (0.00-0.03) X10*3/uL Absolute Neuts (auto) 15.2 H (2.0-8.3) x10*3/uL Absolute Nucleated RBC 0.000 (0.0-0.012) X10*3/uL Nucleated RBC % (auto) 0.0 (0.0-0.2) /100WBC Neutrophils % (Manual) (45-73) % Band Neutrophils % (3-5) % Lymphocytes % (Manual) (20-40) % Monocytes % (Manual) (2-11) % Eosinophils % (Manual) (0-4) % Abs Neuts (Manual) (2.0-8.3) X10*3/uL Lymphocytes # (Manual) (1.2-4.9) X10*3/uL Monocytes # (Manual) (0.1-1.2) X10*3/uL Platelet Estimate (NORMAL) Plt Morphology Comment RBC Morphology Hypochromasia /OIF PT 12.5 (11.1-13.3) SEC INR 1.0 (0.9-1.1) VBG pH 7.09 L* (7.32-7.43) VBG pCO2 68 mmHg VBG pO2 59 mmHg VBG HCO3 21 L (22-26) mmol/L VBG O2 Saturation 81.0 % VBG Base Excess -9.4 mmol/L Sodium 141 (135-145) mmol/L Potassium 3.5 (3.3-5.1) mmol/L Chloride 101 (96-108) mmol/L Carbon Dioxide 19 L (22-29) mmol/L Anion Gap 25 H (12-20) BUN 10 (9-16) mg/dL Creatinine 1.97 H (0.5-1.4) mg/dL Estim Creat Clear Calc TNP Estimated GFR 35 POC Glucose 184 H (60-115) mg/dL Random Glucose 185 H (60-115) mg/dL Lactic Acid 9.3 H* (0.5-2.0) mmol/L Lactic Acid F/U @ 2Hr (0.5-2.0) mmol/L Calcium 9.1 D (8.4-10.2) mg/dL Magnesium 2.1 (1.6-2.6) mg/dL Total Bilirubin 0.2 (0.0-1.0) mg/dL Direct Bilirubin < 0.2 (0.0-0.5) mg/dL AST 138 H (5-37) U/L ALT 48 H (0-40) U/L Alkaline Phosphatase 92 (39-117) U/L Ammonia 42 (13-55) umol/L Total Creatine Kinase 8083 H (38-174) U/L Troponin I High Sens 43.9 H D (<3.5-35.0) ng/L B-Natriuretic Peptide 54 (<100) pg/mL Total Protein 8.0 (6.5-8.0) g/dL Albumin 4.2 (3.5-5.0) g/dL Lipase 11 (8-78) U/L Procalcitonin 0.26 ng/mL Urine Color Urine Appearance Urine pH (5.0-9.0) Ur Specific [place] (1.005-1.025) Urine Protein (Neg-Trace) mg/dL Urine Glucose (UA) (Negative) mg/dL Urine Ketones (Negative) mg/dL Urine Blood (Negative) Urine Nitrite (Negative) Ur Leukocyte Esterase (Negative) Urine RBC (0-2) /HPF Urine WBC (0-5) /HPF Ur Squamous Epith Cells (0-2) /HPF Urine Bacteria (None Seen) Hyaline Casts (0-2) /LPF Granular Casts Urine Opiates Screen (Not Detect) Ur Buprenorphine Scrn (Not Detect) ng/mL Ur Oxycodone Screen (Not Detect) ng/mL Urine Methadone Screen (Not Detect) ng/mL Urine Fentanyl Screen (Not Detect) Ur Barbiturates Screen (Not Detect) Ur Phencyclidine Scrn (Not Detect) Ur Amphetamines Screen (Not Detect) U Benzodiazepines Scrn (Not Detect) Urine Cocaine Screen (Not Detect) U Marijuana (THC) Screen (Not Detect) Ethyl Alcohol < 10 mg/dL Influenza Type A (PCR) NEGATIVE (Negative) Influenza Type B (PCR) NEGATIVE (Negative) RSV RNA Qual (PCR) NEGATIVE (Negative) SARS-CoV-2 RNA (RT-PCR) NEGATIVE (Negative) Blood Type Antibody Screen 08/19/23 08/19/23 08/19/23 Range/Units 02:34 03:37 06:18 WBC (4.8-10.8) X10*3/uL RBC (4.60-5.80) X10*6/uL Hgb (14.0-18.0) g/dl Hct (42.0-52.0) % MCV (80.0-98.0) fL MCH (27.0-33.0) pg MCHC (31.0-36.0) g/dl RDW (11.0-16.0) % Plt Count (160-400) X10*3/uL MPV (9.4-12.4) fL Immature Gran % (Auto) (0.0-0.4) % Neut % (Auto) (45-73) % Lymph % (Auto) (20-40) % [place] % (Auto) (2-11) % Eos % (Auto) (0-4) % Baso % (Auto) (0-2) % Lymph # (Auto) (1.2-4.9) X10*3/uL [place] # (Auto) (0.1-1.2) X10*3/uL Eos # (Auto) (0.0-0.4) X10*3/uL Baso # (Auto) (0.0-0.2) X10*3/uL Abs Immat Gran (auto) (0.00-0.03) X10*3/uL Absolute Neuts (auto) (2.0-8.3) x10*3/uL Absolute Nucleated RBC (0.0-0.012) X10*3/uL Nucleated RBC % (auto) (0.0-0.2) /100WBC Neutrophils % (Manual) (45-73) % Band Neutrophils % (3-5) % Lymphocytes % (Manual) (20-40) % Monocytes % (Manual) (2-11) % Eosinophils % (Manual) (0-4) % Abs Neuts (Manual) (2.0-8.3) X10*3/uL Lymphocytes # (Manual) (1.2-4.9) X10*3/uL Monocytes # (Manual) (0.1-1.2) X10*3/uL Platelet Estimate (NORMAL) Plt Morphology Comment RBC Morphology Hypochromasia /OIF PT (11.1-13.3) SEC INR (0.9-1.1) VBG pH (7.32-7.43) VBG pCO2 mmHg VBG pO2 mmHg VBG HCO3 (22-26) mmol/L VBG O2 Saturation % VBG Base Excess mmol/L Sodium (135-145) mmol/L Potassium (3.3-5.1) mmol/L Chloride (96-108) mmol/L Carbon Dioxide (22-29) mmol/L Anion Gap (12-20) BUN (9-16) mg/dL Creatinine (0.5-1.4) mg/dL Estim Creat Clear Calc Estimated GFR POC Glucose (60-115) mg/dL Random Glucose (60-115) mg/dL Lactic Acid (0.5-2.0) mmol/L Lactic Acid F/U @ 2Hr 2.7 H* (0.5-2.0) mmol/L Calcium (8.4-10.2) mg/dL Magnesium (1.6-2.6) mg/dL Total Bilirubin (0.0-1.0) mg/dL Direct Bilirubin (0.0-0.5) mg/dL AST (5-37) U/L ALT (0-40) U/L Alkaline Phosphatase (39-117) U/L Ammonia (13-55) umol/L Total Creatine Kinase (38-174) U/L Troponin I High Sens (<3.5-35.0) ng/L B-Natriuretic Peptide (<100) pg/mL Total Protein (6.5-8.0) g/dL Albumin (3.5-5.0) g/dL Lipase (8-78) U/L Procalcitonin ng/mL Urine Color Red A Urine Appearance Clear Urine pH 6.5 (5.0-9.0) Ur Specific [place] 1.010 (1.005-1.025) Urine Protein 100 (2+) H (Neg-Trace) mg/dL Urine Glucose (UA) 100 H (Negative) mg/dL Urine Ketones Negative (Negative) mg/dL Urine Blood Large (3+) H (Negative) Urine Nitrite Negative (Negative) Ur Leukocyte Esterase Negative (Negative) Urine RBC 6-10 H (0-2) /HPF Urine WBC 21-50 H (0-5) /HPF Ur Squamous Epith Cells 3-5 (0-2) /HPF Urine Bacteria None Seen (None Seen) Hyaline Casts 3-5 (0-2) /LPF Granular Casts Present Urine Opiates Screen POSITIVE H (Not Detect) Ur Buprenorphine Scrn Not Detected (Not Detect) ng/mL Ur Oxycodone Screen Not Detected (Not Detect) ng/mL Urine Methadone Screen Not Detected (Not Detect) ng/mL Urine Fentanyl Screen POSITIVE H (Not Detect) Ur Barbiturates Screen Not Detected (Not Detect) Ur Phencyclidine Scrn Not Detected (Not Detect) Ur Amphetamines Screen Not Detected (Not Detect) U Benzodiazepines Scrn Not Detected (Not Detect) Urine Cocaine Screen POSITIVE H (Not Detect) U Marijuana (THC) Screen Not Detected (Not Detect) Ethyl Alcohol mg/dL Influenza Type A (PCR) (Negative) Influenza Type B (PCR) (Negative) RSV RNA Qual (PCR) (Negative) SARS-CoV-2 RNA (RT-PCR) (Negative) Blood Type O Positive Antibody Screen NEGATIVE 08/19/23 08/19/23 08/19/23 Range/Units 08:27 08:31 09:22 WBC 2.3 L (4.8-10.8) X10*3/uL RBC 3.64 L (4.60-5.80) X10*6/uL Hgb 10.4 L (14.0-18.0) g/dl Hct 31.7 L (42.0-52.0) % MCV 87.1 D (80.0-98.0) fL MCH 28.6 (27.0-33.0) pg MCHC 32.8 (31.0-36.0) g/dl RDW 15.5 (11.0-16.0) % Plt Count 202 (160-400) X10*3/uL MPV 9.2 L (9.4-12.4) fL Immature Gran % (Auto) Cancelled (0.0-0.4) % Neut % (Auto) Cancelled (45-73) % Lymph % (Auto) Cancelled (20-40) % [place] % (Auto) Cancelled (2-11) % Eos % (Auto) Cancelled (0-4) % Baso % (Auto) Cancelled (0-2) % Lymph # (Auto) Cancelled (1.2-4.9) X10*3/uL [place] # (Auto) Cancelled (0.1-1.2) X10*3/uL Eos # (Auto) Cancelled (0.0-0.4) X10*3/uL Baso # (Auto) Cancelled (0.0-0.2) X10*3/uL Abs Immat Gran (auto) Cancelled (0.00-0.03) X10*3/uL Absolute Neuts (auto) Cancelled (2.0-8.3) x10*3/uL Absolute Nucleated RBC 0.000 (0.0-0.012) X10*3/uL Nucleated RBC % (auto) 0.0 (0.0-0.2) /100WBC Neutrophils % (Manual) 30 L (45-73) % Band Neutrophils % 18 H (3-5) % Lymphocytes % (Manual) 47 H (20-40) % Monocytes % (Manual) 4 (2-11) % Eosinophils % (Manual) 1 (0-4) % Abs Neuts (Manual) 1.1 L (2.0-8.3) X10*3/uL Lymphocytes # (Manual) 1.1 L (1.2-4.9) X10*3/uL Monocytes # (Manual) 0.1 (0.1-1.2) X10*3/uL Platelet Estimate NORMAL (NORMAL) Plt Morphology Comment NORMAL RBC Morphology NOTED Hypochromasia 1+ (5-14) /OIF PT (11.1-13.3) SEC INR (0.9-1.1) VBG pH 7.41 (7.32-7.43) VBG pCO2 41 mmHg VBG pO2 46 mmHg VBG HCO3 27 H (22-26) mmol/L VBG O2 Saturation 74.0 % VBG Base Excess 2.4 mmol/L Sodium 140 (135-145) mmol/L Potassium 3.3 (3.3-5.1) mmol/L Chloride 105 (96-108) mmol/L Carbon Dioxide 24 (22-29) mmol/L Anion Gap 14 (12-20) BUN 12 (9-16) mg/dL Creatinine 1.48 H (0.5-1.4) mg/dL Estim Creat Clear Calc 54.5 Estimated GFR 49 POC Glucose (60-115) mg/dL Random Glucose 79 (60-115) mg/dL Lactic Acid 2.5 H* (0.5-2.0) mmol/L Lactic Acid F/U @ 2Hr (0.5-2.0) mmol/L Calcium 7.2 L D (8.4-10.2) mg/dL Magnesium (1.6-2.6) mg/dL Total Bilirubin (0.0-1.0) mg/dL Direct Bilirubin (0.0-0.5) mg/dL AST (5-37) U/L ALT (0-40) U/L Alkaline Phosphatase (39-117) U/L Ammonia (13-55) umol/L Total Creatine Kinase > 63411 H (38-174) U/L Troponin I High Sens (<3.5-35.0) ng/L B-Natriuretic Peptide (<100) pg/mL Total Protein (6.5-8.0) g/dL Albumin (3.5-5.0) g/dL Lipase (8-78) U/L Procalcitonin ng/mL Urine Color Urine Appearance Urine pH (5.0-9.0) Ur Specific [place] (1.005-1.025) Urine Protein (Neg-Trace) mg/dL Urine Glucose (UA) (Negative) mg/dL Urine Ketones (Negative) mg/dL Urine Blood (Negative) Urine Nitrite (Negative) Ur Leukocyte Esterase (Negative) Urine RBC (0-2) /HPF Urine WBC (0-5) /HPF Ur Squamous Epith Cells (0-2) /HPF Urine Bacteria (None Seen) Hyaline Casts (0-2) /LPF Granular Casts Urine Opiates Screen (Not Detect) Ur Buprenorphine Scrn (Not Detect) ng/mL Ur Oxycodone Screen (Not Detect) ng/mL Urine Methadone Screen (Not Detect) ng/mL Urine Fentanyl Screen (Not Detect) Ur Barbiturates Screen (Not Detect) Ur Phencyclidine Scrn (Not Detect) Ur Amphetamines Screen (Not Detect) U Benzodiazepines Scrn (Not Detect) Urine Cocaine Screen (Not Detect) U Marijuana (THC) Screen (Not Detect) Ethyl Alcohol mg/dL Influenza Type A (PCR) (Negative) Influenza Type B (PCR) (Negative) RSV RNA Qual (PCR) (Negative) SARS-CoV-2 RNA (RT-PCR) (Negative) Blood Type Antibody Screen 08/19/23 Range/Units 10:47 WBC (4.8-10.8) X10*3/uL RBC (4.60-5.80) X10*6/uL Hgb (14.0-18.0) g/dl Hct (42.0-52.0) % MCV (80.0-98.0) fL MCH (27.0-33.0) pg MCHC (31.0-36.0) g/dl RDW (11.0-16.0) % Plt Count (160-400) X10*3/uL MPV (9.4-12.4) fL Immature Gran % (Auto) (0.0-0.4) % Neut % (Auto) (45-73) % Lymph % (Auto) (20-40) % [place] % (Auto) (2-11) % Eos % (Auto) (0-4) % Baso % (Auto) (0-2) % Lymph # (Auto) (1.2-4.9) X10*3/uL [place] # (Auto) (0.1-1.2) X10*3/uL Eos # (Auto) (0.0-0.4) X10*3/uL Baso # (Auto) (0.0-0.2) X10*3/uL Abs Immat Gran (auto) (0.00-0.03) X10*3/uL Absolute Neuts (auto) (2.0-8.3) x10*3/uL Absolute Nucleated RBC (0.0-0.012) X10*3/uL Nucleated RBC % (auto) (0.0-0.2) /100WBC Neutrophils % (Manual) (45-73) % Band Neutrophils % (3-5) % Lymphocytes % (Manual) (20-40) % Monocytes % (Manual) (2-11) % Eosinophils % (Manual) (0-4) % Abs Neuts (Manual) (2.0-8.3) X10*3/uL Lymphocytes # (Manual) (1.2-4.9) X10*3/uL Monocytes # (Manual) (0.1-1.2) X10*3/uL Platelet Estimate (NORMAL) Plt Morphology Comment RBC Morphology Hypochromasia /OIF PT (11.1-13.3) SEC INR (0.9-1.1) VBG pH (7.32-7.43) VBG pCO2 mmHg VBG pO2 mmHg VBG HCO3 (22-26) mmol/L VBG O2 Saturation % VBG Base Excess mmol/L Sodium (135-145) mmol/L Potassium (3.3-5.1) mmol/L Chloride (96-108) mmol/L Carbon Dioxide (22-29) mmol/L Anion Gap (12-20) BUN (9-16) mg/dL Creatinine (0.5-1.4) mg/dL Estim Creat Clear Calc Estimated GFR POC Glucose (60-115) mg/dL Random Glucose (60-115) mg/dL Lactic Acid (0.5-2.0) mmol/L Lactic Acid F/U @ 2Hr 2.3 H* (0.5-2.0) mmol/L Calcium (8.4-10.2) mg/dL Magnesium (1.6-2.6) mg/dL Total Bilirubin (0.0-1.0) mg/dL Direct Bilirubin (0.0-0.5) mg/dL AST (5-37) U/L ALT (0-40) U/L Alkaline Phosphatase (39-117) U/L Ammonia (13-55) umol/L Total Creatine Kinase (38-174) U/L Troponin I High Sens (<3.5-35.0) ng/L B-Natriuretic Peptide (<100) pg/mL Total Protein (6.5-8.0) g/dL Albumin (3.5-5.0) g/dL Lipase (8-78) U/L Procalcitonin ng/mL Urine Color Urine Appearance Urine pH (5.0-9.0) Ur Specific [place] (1.005-1.025) Urine Protein (Neg-Trace) mg/dL Urine Glucose (UA) (Negative) mg/dL Urine Ketones (Negative) mg/dL Urine Blood (Negative) Urine Nitrite (Negative) Ur Leukocyte Esterase (Negative) Urine RBC (0-2) /HPF Urine WBC (0-5) /HPF Ur Squamous Epith Cells (0-2) /HPF Urine Bacteria (None Seen) Hyaline Casts (0-2) /LPF Granular Casts Urine Opiates Screen (Not Detect) Ur Buprenorphine Scrn (Not Detect) ng/mL Ur Oxycodone Screen (Not Detect) ng/mL Urine Methadone Screen (Not Detect) ng/mL Urine Fentanyl Screen (Not Detect) Ur Barbiturates Screen (Not Detect) Ur Phencyclidine Scrn (Not Detect) Ur Amphetamines Screen (Not Detect) U Benzodiazepines Scrn (Not Detect) Urine Cocaine Screen (Not Detect) U Marijuana (THC) Screen (Not Detect) Ethyl Alcohol mg/dL Influenza Type A (PCR) (Negative) Influenza Type B (PCR) (Negative) RSV RNA Qual (PCR) (Negative) SARS-CoV-2 RNA (RT-PCR) (Negative) Blood Type Antibody Screen Independent Interpretation I performed an independent interpretation of an: EKG, Plain X-Ray (ETT pulled back 1cm) and CT Scan (ETT again moved down we pulled it back again and confirmed with CXR) Interpretation: Rate: 100 Rhythm:sinus tach [place]: normal Normal P waves. Normal ELLEN. Normal QRS complex. ST T wave : normal no MARIAMA qTC: 446 prior studies: no acute ischemia The study has been interpreted contemporaneously by me. . Radiology Impression Discussion of test interpretation with radiology: I have reviewed the radiologist's reading. Independent Historian Clinical information obtained from an independent historian. History obtained from or confirmed by: EMS External Record Review External record reviewed: Inpatient record Procedures Central Line Placement Right IJ: Time Out Performed: Yes Patient Placed on Monitor/Pulse Ox: Yes MD Prep: mask, gown and gloves Central Line Prep: Chlorhexidine scrub Local Anesthetic: lidocaine 1% Amount of anesthesia used (mL): 3 Ultrasound Used for Placement: Yes Central Line Lumen Inserted: triple Post Procedure: sutured in place, good blood return, all ports aspirated, flushed, capped and sterile dressing applied Post Procedure X-Ray: tip of catheter in good position and no pneumothorax seen Patient Tolerated Procedure: well and no complications Complications: none EJ/Peripheral Line Arm L: Time Out Performed: Yes Skin Cleansed in Sterile Fashion: Yes Size (gauge): 20 IV Secured and Dressing Applied: Yes Patient Tolerated Procedure: well and no complications Additional Comments: US guided Intubation Intubation Type:: Emergency Endotracheal Intubation Intubation Date:: 08/19/23 Time out performed: Yes sedative: Etomidate Mg Given: 10 paralytic: Rocuronium Mg Given: 50 Laryngoscope: other (mac glide) ET Tube Size: 7.5 ET Tube Uncuffed: Yes Tube Secured Depth (cm): 22 Tube Secured Location: teeth Tube Placement Confirmation: visualized tube passing through cords, equal breath sounds bilaterally, no breath sounds over epigastrium and confirmation by capnometry Patient Tolerated Procedure: well and no complications Intubation Complications: none Critical Care Time Critical Care Time Critical Care Time: Yes Total Critical Care Time: 120 Attestation: IVF x2.5L, empiric antibiotics, multiple sedating medications, repeat assessments, repeat calls out to family, call to tertiary centers and transfer centers for ICU transfer I attest to this time spent taking care of the patient Discharge Plan Discharge Clinical Impression: Multifocal pneumonia, Hypoxia, NAOMI (acute kidney injury) Overdose Qualifiers: Encounter type: initial encounter Injury intent: undetermined intent Qualified Code(s): T50.904A - Poisoning by unspecified drugs, medicaments and biological substances, undetermined, initial encounter Rhabdomyolysis Qualifiers: Rhabdomyolysis type: non-traumatic Qualified Code(s): M62.82 - Rhabdomyolysis Patient Disposition: Admitted As Inpatient Interventions: Admission Worksheet (ED) Last Done: 08/19/23 12:27 Discharge Date/Time: 08/19/23 11:00
[2023-08-19 02:56] LABS: Troponin-I High Sensitivity 43.9 ng/L (<3.5-35.0)
[2023-08-19 02:57] LABS: B Type Natriuretic Peptide 54 pg/mL (<100)
[2023-08-19 03:00] LABS: Alanine Aminotransferase 48 U/L (0-40); Albumin Level 4.2 g/dL (3.5-5.0); Alkaline Phosphatase 92 U/L (39-117); Anion Gap 25 (12-20); Aspartate Amino Transferase 138 U/L (5-37); Bilirubin Direct < 0.2 mg/dL (0.0-0.5); Bilirubin Total 0.2 mg/dL (0.0-1.0); Blood Urea Nitrogen 10 mg/dL (9-16); Calcium 9.1 mg/dL (8.4-10.2); Carbon Dioxide 19 mmol/L (22-29); Chloride 101 mmol/L (96-108); Estimated Glomerular Filt Rate 35; Ethanol < 10 mg/dL; Glucose Random 185 mg/dL (60-115); Lactic Acid 9.3 mmol/L (0.5-2.0); Lipase 11 U/L (8-78); Magnesium 2.1 mg/dL (1.6-2.6); Potassium 3.5 mmol/L (3.3-5.1); Sodium 141 mmol/L (135-145)
--- NOTE | 2023-08-19 03:02 | PC.NURSE ---
Addendum entered by Gala Gutierrez 08/19/23 06:58: correction narcan given was 3mg at 0207 Original Note: pt arrived after found unresponsive. pt on arrival was given narcon 3mg im at 0207. pt given etomidate 10 ml iv and rocuronium 5ml iv. for intubation. #7.5 26 cm at the lip. ET tube 7.5 placed by provider. vent settings ac 18 peep 5 tv 410 fio2 100%. at 0220
[2023-08-19 03:14] LABS: Procalcitonin 0.26 ng/mL
[2023-08-19 03:16] LABS: Influenza A PCR NEGATIVE (Negative); Influenza B PCR NEGATIVE (Negative); Resp Syncy Virus RNA Qual PCR NEGATIVE (Negative); SARS COV2 PCR INHOUSE NEGATIVE (Negative)
[2023-08-19] MEDS: Piperacillin Sodium/Tazobactam 3.375 GM in 0.9 % Sodium Chloride 50 ML IV ×3 (03:20→20:03)
[2023-08-19] MEDS: Pantoprazole Sodium 40 MG/10 ML VIAL IVPUSH (03:20)
[2023-08-19] MEDS: Midazolam HCl/NS 50 MG/50 ML PLAST..BAG IVCONT ×4 (03:30→17:15)
[2023-08-19] MEDS: 0.9 % Sodium Chloride 500 ML IV (04:00)
[2023-08-19] MEDS: Pantoprazole Sodium 80 MG in 0.9 % Sodium Chloride 80 ML 10 MG IV ×2 (04:00→17:14)
[2023-08-19 04:07] LABS: Appearance Urine Clear; Color Urine Red; Glucose Urine UA 100 mg/dL (Negative); Leukocyte Esterase Urine Negative (Negative); Nitrite Urine Negative (Negative); PH 6.5 (5.0-9.0); UMIC TRIGGER UACC YES; Urine Blood Large (3+) (Negative); Urine Ketones Negative (Negative); Urine Protein 100 (2+) mg/dL (Neg-Trace)
[2023-08-19 04:09] LABS: Bacteria Urine None Seen (None Seen); Granular Casts Urine Present; UACC Culture Trigger YES; WBC Urine 21-50 /HPF (0-5)
[2023-08-19] MEDS: fentaNYL citrate/NS 1,000 MCG/100 ML PLAST..BAG 2.5 MCG IVCONT ×3 (04:10→18:37)
[2023-08-19 04:18] LABS: Amphetamine Screen Urine Not Detected (Not Detect); Barbiturates, Urine Not Detected (Not Detect); Benzodiazepines Screen Urine Not Detected (Not Detect); Buprenorphine Scr Not Detected (Not Detect); Cannabinoid Screen Urine Not Detected (Not Detect); Cocaine Screen Urine POSITIVE (Not Detect); Fentanyl, urine POSITIVE (Not Detect); Methadone Screen, Urine Not Detected (Not Detect); Opiate Screen Urine POSITIVE (Not Detect); Oxycodone Screen Urine Not Detected (Not Detect); Phencyclidine Screen Urine Not Detected (Not Detect)
[2023-08-19 04:31] LABS: Reflex Lactate? Lactic Acid Added
[2023-08-19] MEDS: Sodium Bicarbonate 8.4% 150 MEQ in Dextrose 5 % 850 ML 200 MEQ IV ×2 (04:55→10:59)
[2023-08-19] MEDS: propofoL 1,000 MG/100 ML VIAL 13.37 MG IVCONT (06:01)
[2023-08-19] MEDS: 0.9 % Sodium Chloride 1,000 ML 75 ML IVCONT ×2 (06:14→14:51)
--- NOTE | 2023-08-19 06:23 | PC.NURSE ---
Med administration late due to no pumps on floor. business continuity specialist, RN Sup, and MD aware. Plan of care ongoing.
--- NOTE | 2023-08-19 06:29 | PC.RT ---
Pt intubated at 0220 for airway protection and hypoxia. pt intubated with 7.5ETT at 26cm at the lip post CXR ETT to be pulled 2cm now at 24cm at the lip with equal bilat BS. Pt went for chest CT, per [facility] ETT in right mainstem and to be pulled back 3cm. ETT now at 21cm at the lip per Dr. Maravilla. repeat cxr ordered at this time.
[2023-08-19 06:41] LABS: ~Lactic Acid-LAB USE ONLY 2.7 mmol/L (0.5-2.0)
[2023-08-19] MEDS: Naloxone HCl 2 MG/2 ML SYRINGE IVPUSH (07:00)
[2023-08-19] MEDS: Acetaminophen Supp 650 MG SUPP.RECT PR (07:07)
--- NOTE | 2023-08-19 07:44 | PC.NURSE ---
upon this RN initial assessment, pt intubated and sedated. resting comfortably, CPOT 0, RASS -3 at this time. Pupils 3mm bilaterally, sluggishly reactive. Pt intubated with 7.5 ETT, 23 at lip. LS clear on L side, rhonchi noted on R. Pt with OGT in place, small amount of dark emesis drained. Bess cath in place, drained 1000mL currently, urine dark nina in color. visualized skin intact. pt remains febrile, tylenol suppository given and ice packs placed to axilla and groin.
--- NOTE | 2023-08-19 07:46 | MHC.EDTECH ---
@1124 DTR/JUICE NUNEZ CALLS, SPEAKS WITH DR VASQUEZ
--- NOTE | 2023-08-19 08:06 | MHC.EDTECH ---
@5165 EDIE ERIC CALLS AND SPEAKS W/DR VASQUEZ
[2023-08-19] MEDS: Norepinephrine Bitartrate/D5W 8 MG/250 ML PLAST..BAG 6.97 MG IV (08:14)
[2023-08-19 08:21] LABS: Reflex Lactate? 2 Y
[2023-08-19 08:38] LABS: VBG Base Excess 2.4 mmol/L; VBG HCO3 27 mmol/L (22-26); VBG pCO2 41 mmHg; VBG pH 7.41 (7.32-7.43); VBG pO2 46 mmHg
[2023-08-19 08:38] LABS: Venous Blood Gas Refer to POC result
[2023-08-19] MEDS: vancomycin/NS 2,000 MG/500 ML PLAST..BAG 250 MG IV (08:46)
[2023-08-19 08:55] LABS: Lactic Acid 2.5 mmol/L (0.5-2.0)
[2023-08-19 09:02] LABS: Anion Gap 14 (12-20); Blood Urea Nitrogen 12 mg/dL (9-16); Calcium 7.2 mg/dL (8.4-10.2); Carbon Dioxide 24 mmol/L (22-29); Chloride 105 mmol/L (96-108); Creatinine Clr Calc Pharmacy 54.5; Estimated Glomerular Filt Rate 49; Glucose Random 79 mg/dL (60-115); Potassium 3.3 mmol/L (3.3-5.1); Sodium 140 mmol/L (135-145)
[2023-08-19 09:35] LABS: Hematocrit 31.7 % (42.0-52.0); Hemoglobin 10.4 g/dl (14.0-18.0); Mean Corpuscular HGB Conc 32.8 g/dl (31.0-36.0); Mean Corpuscular Hemoglobin 28.6 pg (27.0-33.0); Mean Corpuscular Volume 87.1 fL (80.0-98.0); Mean Platelet Volume 9.2 fL (9.4-12.4); Platelet Count 202 X10*3/uL (160-400); Red Blood Count 3.64 X10*6/uL (4.60-5.80); Red Cell Distribution Width 15.5 % (11.0-16.0)
[2023-08-19 09:36] LABS: White Blood Count 2.3 X10*3/uL (4.8-10.8)
[2023-08-19] MEDS: Lactated Ringers 1,000 ML 999 ML IV (09:43)
--- NOTE | 2023-08-19 09:43 | MHC.EDTECH ---
@0831 CALL PLACED TO NEPHGANESH/JEANETH/HCP PHONE W/ NO ANSWER @0833 CALL PLACED TO DTR/COLE TO MAKE HER AWARE OF THIS PT STAYING HERE @ [facility] [place], SHE WILL MAKE JEANETH AWARE OF THIS PER COLE
[2023-08-19] MEDS: Potassium Chloride Packet 20 MEQ PACKET 40 MEQ OG-TUBE (09:54)
[2023-08-19 09:59] LABS: Neutrophils Percent Manual 30 % (45-73)
[2023-08-19 10:01] LABS: Band Neutrophils Percent 18 % (3-5); Eosinophils Percent Manual 1 % (0-4); Lymphocytes Absolute Manual 1.1 X10*3/uL (1.2-4.9); Lymphocytes Percent Manual 47 % (20-40); Monocytes Absolute Manual 0.1 X10*3/uL (0.1-1.2); Monocytes Percent Manual 4 % (2-11); Neutrophils Absolute Manual 1.1 X10*3/uL (2.0-8.3)
[2023-08-19 10:03] LABS: Hypochromasia 1+ (5-14) /OIF; Platelet Estimate NORMAL (NORMAL); Platelet Morphology Comment NORMAL; RBC Morphology NOTED
[2023-08-19 10:32] LABS: Reflex Lactate? Lactic Acid Added
[2023-08-19 11:05] LABS: ~Lactic Acid-LAB USE ONLY 2.3 mmol/L (0.5-2.0)
[2023-08-19] MEDS: Piperacillin Sodium/Tazobactam 4.5 GM in 0.9 % Sodium Chloride 100 ML IV (11:17)
--- NOTE | 2023-08-19 11:47 | PHA.MEDREC ---
Addendum entered by Michael Lacy 08/19/23 13:25: Mirtazepine 15mg is most recent fill from [facility]. Addendum entered by Cabrera Lemon 08/19/23 11:55: Clonazepam from previous discharge summary and claim history as well. Original Note: Pharmacy Consult ? Medication Reconciliation Pharmacy has completed the medication reconciliation.Unable to speak with patient. Used medication lists from [facility] and [facility]. Loperamide was reported on previous discharge summary and claim history.
--- NOTE | 2023-08-19 11:50 | P.HPCC_ITS ---
History of Present Illness Date of Service: 08/19/23 Attending physician on admission: Tylor Coyle Chief Complaint: Unresponsive Mr. Jerson Taveras is a 53-year-old male with PMH of depression, GERD, dysphagia, BPH, bipolar, anemia, alcohol and opiate abuse, anxiety, GI bleed, achalasia s/p heller myotomy and balloon dilations was found unresponsive at home so EMS was called. Upon arrival of the EMS on Thursday was found to have pinpoint pupils with apneic breathing so was brought into the was intubated and placed on ventilator support, he is also found to be in shock needing Levophed support, acute kidney injury, rhabdomyolysis and a right-sided aspiration pneumonia for which MICU was consulted for admission. 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 GERD (gastroesophageal reflux disease) Anxiety Family History Family History Father HTN (hypertension) Diabetes Mother HTN (hypertension) Stroke Alzheimer disease Heart disease Surgical History Surgical History History of colonoscopy History of cystoscopy H/O umbilical hernia repair Social History Social History Household Members: None Housing: Apartment Do you presently have visiting nurse or other home services: Yes Alcohol intake: former Comment: 1:1 sitter Patient Tobacco Use Status: Current everyday Tobacco user Tobacco use type: Cigarette Cigarette Packs Per Day: 12 Cigarettes Per Day: 240.0 Years Smoked: 12 e-Cigarette/Vaping Use: Never Used Second Hand Smoke Exposure: Yes Substance Use Type: Heroin and Opiates Advance Directives: Yes Advance Directives on File: Yes Advance Directives Date on File: 02/14/20 service: No Current occupational status: unemployed and disabled Sexual orientation: Straight/Heterosexual Meds Allergies Allergy/AdvReac Type Severity Reaction Status Date / Time trazodone [TRAZODONE] Allergy Severe FACIAL Verified 08/19/23 02:58 SWELLING, swelling cat dander [CATS] Allergy Intermediate FACIAL Verified 08/19/23 02:58 ITCHING doxepin [DOXEPIN] Allergy Intermediate WEIGHT Verified 08/19/23 02:58 GAIN/LEG SWELLING Iodinated Contrast Media Allergy Intermediate ITCHING Verified 08/19/23 02:58 [IV DYE, IODINE CONTAINING CONTRAST ] nitroglycerin [NITROGLYCERIN] Allergy Unknown UNKNOWN Verified 08/19/23 02:58 tramadol [TRAMADOL] Allergy Unknown UNKNOWN, Verified 08/19/23 02:58 dry mouth ibuprofen [From MOTRIN] AdvReac Intermediate GI UPSET Verified 08/19/23 02:58 quetiapine [From SEROQUEL] AdvReac Intermediate FACIAL Verified 08/19/23 02:58 SWELLING aspirin [ASPIRIN] AdvReac Mild Stomach Verified 08/19/23 02:58 Upset Ibuprofen Allergy Unknown stomach Uncoded 08/19/23 02:58 ache IV contrast Allergy Unknown Unknown Uncoded 08/03/23 20:27 Motrin Allergy Unknown stomach Uncoded 08/03/23 20:27 pain Active Medications: Current Medications Heparin Sodium (Porcine) (Heparin Sodium,Porcine 5,000 Unit/Ml Vial) 5,000 unit SUBCUT Q8H JAMES Pantoprazole Sodium 80 mg/ (Sodium Chloride) 100 mls @ 10 mls/hr IV .Q10H JAMES Last Admin: 08/19/23 04:00 Dose: 8 mg/hr, 10 mls/hr Midazolam HCl (Versed) 50 mg in 50 mls @ 2 mls/hr IVCONT .Q24H JAMES Last Admin: 08/19/23 03:30 Dose: 2 mg/hr, 2 mls/hr Fentanyl (Sublimaze/Ns) 1,000 mcg in 100 mls @ 0 mls/hr IVCONT .Q0M JAMES; Protocol Last Admin: 08/19/23 10:33 Dose: 25 mcg/hr, 2.5 mls/hr Sodium Bicarbonate 150 meq/ (Dextrose) 1,000 mls @ 150 mls/hr IV .Q6H40M JAMES Last Admin: 08/19/23 10:59 Dose: 200 mls/hr Propofol (Diprivan) 1,000 mg in 100 mls @ 0 mls/hr IVCONT .Q0M JAMES; Protocol Last Titration: 08/19/23 08:15 Dose: 20 mcg/kg/min, 8.92 mls/hr Sodium Chloride (Ns) 1,000 mls @ 100 mls/hr IVCONT .Q10H JAMES Last Admin: 08/19/23 06:14 Dose: 75 mls/hr Norepinephrine Bitartrate (Levophed) 8 mg in 250 mls @ 0 mls/hr IV .Q0M JAMES; Protocol Last Titration: 08/19/23 10:13 Dose: 0.12 mcg/kg/min, 16.72 mls/hr Pantoprazole Sodium 40 mg/ (Sodium Chloride) 110 mls @ 400 mls/hr IV DAILY@0630 JAMES Norepinephrine Bitartrate (Levophed) 8 mg in 250 mls @ 0 mls/hr IV .Q0M JAMES; Protocol Vasopressin (Vasostrict) 20 unit in 100 mls @ 12 mls/hr IV .Q8H20M JAMES Propofol (Diprivan) 1,000 mg in 100 mls @ 0 mls/hr IVCONT .Q0M JAMES; Protocol Fentanyl (Sublimaze/Ns) 1,000 mcg in 100 mls @ 5 mls/hr IVCONT .Q20H JAMES; Protocol Piperacillin Sod/Tazobactam (Sod 3.375 gm/ Sodium Chloride) 50 mls @ 100 mls/hr IV Q8H JAMES Naloxone HCl (Naloxone Hcl 0.4 Mg/Ml Vial) 0.2 mg IVPUSH Q2M PRN PRN Reason: Excessive sedation or RR < 8 Home Medications ?Medication ?Instructions ?Recorded ?Confirmed ?Last Taken ?Type loperamide 2 mg tablet 2 mg PO Q6H PRN Loose Stool 08/19/23 08/19/23 Unknown History (Anti-Diarrheal (loperamide)) Physical Exam 2 Vital Signs: Vital Signs: Last Vital Signs Temp 100.6 F H 08/19/23 10:13 Pulse 102 H 08/19/23 10:13 Resp 4 L 08/19/23 10:13 BP 125/79 08/19/23 10:13 Pulse Ox 98 08/19/23 10:00 O2 Del Method Mechanical Ventil ation 08/19/23 10:13 FiO2 50 08/19/23 07:32 BMI result Body Mass Index 24.9 General: acute distress, ill appearing and tired appearing Nutritional Appearance: Poorly nourished and normal weight Eyes: appearance normal, both eyes and all related structures; Alignment and Position: alignment normal and position normal Neck: No lymphadenopathy, no thyromegaly Resp: bilateral air entry equal, crackles heard in the right lung in all lung short Cardio: Regular rate, regular rhythm; Heart sounds: S1 normal heart sound present and S2 normal heart sound present GI: soft, nontender, no guarding, no hepatosplenomegaly : bladder normal to inspection, bladder normal to palpation, no renal angle tenderness Skin: no rashes or lesions noted and elasticity normal Neuro: Sedated with multiple drips including Versed and propofol, no focal deficits Results Labs 08/19/23 09:22 08/19/23 08:27 Labs: Laboratory Results - last 24 hr 08/19/23 08/19/23 08/19/23 02:06 02:28 02:30 MCV 92.6 MCH 28.7 MCHC 31.0 RDW 15.8 Plt Count 266 MPV 8.8 L Immature Gran % (Auto) 0.7 H Neut % (Auto) 84.9 H Lymph % (Auto) 8.1 L Delta % (Auto) 5.8 Eos % (Auto) 0.2 Baso % (Auto) 0.3 Lymph # (Auto) 1.5 Delta # (Auto) 1.0 Eos # (Auto) 0.0 Baso # (Auto) 0.1 Abs Immat Gran (auto) 0.13 H Absolute Neuts (auto) 15.2 H Absolute Nucleated RBC 0.000 Nucleated RBC % (auto) 0.0 Neutrophils % (Manual) Band Neutrophils % Lymphocytes % (Manual) Monocytes % (Manual) Eosinophils % (Manual) Abs Neuts (Manual) Lymphocytes # (Manual) Monocytes # (Manual) Platelet Estimate Plt Morphology Comment RBC Morphology Hypochromasia PT 12.5 INR 1.0 VBG pH 7.09 L* VBG pCO2 68 VBG pO2 59 VBG HCO3 21 L VBG O2 Saturation 81.0 VBG Base Excess -9.4 Anion Gap 25 H Estim Creat Clear Calc TNP Estimated GFR 35 POC Glucose 184 H Random Glucose 185 H Lactic Acid 9.3 H* Lactic Acid F/U @ 2Hr Calcium 9.1 D Magnesium 2.1 Total Bilirubin 0.2 Direct Bilirubin < 0.2 AST 138 H ALT 48 H Alkaline Phosphatase 92 Ammonia 42 Total Creatine Kinase 8083 H Troponin I High Sens 43.9 H D B-Natriuretic Peptide 54 Total Protein 8.0 Albumin 4.2 Lipase 11 Procalcitonin 0.26 Urine Color Urine Appearance Urine pH Ur Specific [place] Urine Protein Urine Glucose (UA) Urine Ketones Urine Blood Urine Nitrite Ur Leukocyte Esterase Urine RBC Urine WBC Ur Squamous Epith Cells Urine Bacteria Hyaline Casts Granular Casts Urine Opiates Screen Ur Buprenorphine Scrn Ur Oxycodone Screen Urine Methadone Screen Urine Fentanyl Screen Ur Barbiturates Screen Ur Phencyclidine Scrn Ur Amphetamines Screen U Benzodiazepines Scrn Urine Cocaine Screen U Marijuana (THC) Screen Ethyl Alcohol < 10 Influenza Type A (PCR) NEGATIVE Influenza Type B (PCR) NEGATIVE RSV RNA Qual (PCR) NEGATIVE SARS-CoV-2 RNA (RT-PCR) NEGATIVE Blood Type Antibody Screen 08/19/23 08/19/23 08/19/23 02:34 03:37 06:18 MCV MCH MCHC RDW Plt Count MPV Immature Gran % (Auto) Neut % (Auto) Lymph % (Auto) Delta % (Auto) Eos % (Auto) Baso % (Auto) Lymph # (Auto) Delta # (Auto) Eos # (Auto) Baso # (Auto) Abs Immat Gran (auto) Absolute Neuts (auto) Absolute Nucleated RBC Nucleated RBC % (auto) Neutrophils % (Manual) Band Neutrophils % Lymphocytes % (Manual) Monocytes % (Manual) Eosinophils % (Manual) Abs Neuts (Manual) Lymphocytes # (Manual) Monocytes # (Manual) Platelet Estimate Plt Morphology Comment RBC Morphology Hypochromasia PT INR VBG pH VBG pCO2 VBG pO2 VBG HCO3 VBG O2 Saturation VBG Base Excess Anion Gap Estim Creat Clear Calc Estimated GFR POC Glucose Random Glucose Lactic Acid Lactic Acid F/U @ 2Hr 2.7 H* Calcium Magnesium Total Bilirubin Direct Bilirubin AST ALT Alkaline Phosphatase Ammonia Total Creatine Kinase Troponin I High Sens B-Natriuretic Peptide Total Protein Albumin Lipase Procalcitonin Urine Color Red A Urine Appearance Clear Urine pH 6.5 Ur Specific [place] 1.010 Urine Protein 100 (2+) H Urine Glucose (UA) 100 H Urine Ketones Negative Urine Blood Large (3+) H Urine Nitrite Negative Ur Leukocyte Esterase Negative Urine RBC 6-10 H Urine WBC 21-50 H Ur Squamous Epith Cells 3-5 Urine Bacteria None Seen Hyaline Casts 3-5 Granular Casts Present Urine Opiates Screen POSITIVE H Ur Buprenorphine Scrn Not Detected Ur Oxycodone Screen Not Detected Urine Methadone Screen Not Detected Urine Fentanyl Screen POSITIVE H Ur Barbiturates Screen Not Detected Ur Phencyclidine Scrn Not Detected Ur Amphetamines Screen Not Detected U Benzodiazepines Scrn Not Detected Urine Cocaine Screen POSITIVE H U Marijuana (THC) Screen Not Detected Ethyl Alcohol Influenza Type A (PCR) Influenza Type B (PCR) RSV RNA Qual (PCR) SARS-CoV-2 RNA (RT-PCR) Blood Type O Positive Antibody Screen NEGATIVE 08/19/23 08/19/23 08/19/23 08:27 08:31 09:22 MCV 87.1 D MCH 28.6 MCHC 32.8 RDW 15.5 Plt Count 202 MPV 9.2 L Immature Gran % (Auto) Cancelled Neut % (Auto) Cancelled Lymph % (Auto) Cancelled Delta % (Auto) Cancelled Eos % (Auto) Cancelled Baso % (Auto) Cancelled Lymph # (Auto) Cancelled Delta # (Auto) Cancelled Eos # (Auto) Cancelled Baso # (Auto) Cancelled Abs Immat Gran (auto) Cancelled Absolute Neuts (auto) Cancelled Absolute Nucleated RBC 0.000 Nucleated RBC % (auto) 0.0 Neutrophils % (Manual) 30 L Band Neutrophils % 18 H Lymphocytes % (Manual) 47 H Monocytes % (Manual) 4 Eosinophils % (Manual) 1 Abs Neuts (Manual) 1.1 L Lymphocytes # (Manual) 1.1 L Monocytes # (Manual) 0.1 Platelet Estimate NORMAL Plt Morphology Comment NORMAL RBC Morphology NOTED Hypochromasia 1+ (5-14) PT INR VBG pH 7.41 VBG pCO2 41 VBG pO2 46 VBG HCO3 27 H VBG O2 Saturation 74.0 VBG Base Excess 2.4 Anion Gap 14 Estim Creat Clear Calc 54.5 Estimated GFR 49 POC Glucose Random Glucose 79 Lactic Acid 2.5 H* Lactic Acid F/U @ 2Hr Calcium 7.2 L D Magnesium Total Bilirubin Direct Bilirubin AST ALT Alkaline Phosphatase Ammonia Total Creatine Kinase > 57269 H Troponin I High Sens B-Natriuretic Peptide Total Protein Albumin Lipase Procalcitonin Urine Color Urine Appearance Urine pH Ur Specific [place] Urine Protein Urine Glucose (UA) Urine Ketones Urine Blood Urine Nitrite Ur Leukocyte Esterase Urine RBC Urine WBC Ur Squamous Epith Cells Urine Bacteria Hyaline Casts Granular Casts Urine Opiates Screen Ur Buprenorphine Scrn Ur Oxycodone Screen Urine Methadone Screen Urine Fentanyl Screen Ur Barbiturates Screen Ur Phencyclidine Scrn Ur Amphetamines Screen U Benzodiazepines Scrn Urine Cocaine Screen U Marijuana (THC) Screen Ethyl Alcohol Influenza Type A (PCR) Influenza Type B (PCR) RSV RNA Qual (PCR) SARS-CoV-2 RNA (RT-PCR) Blood Type Antibody Screen 08/19/23 10:47 MCV MCH MCHC RDW Plt Count MPV Immature Gran % (Auto) Neut % (Auto) Lymph % (Auto) Delta % (Auto) Eos % (Auto) Baso % (Auto) Lymph # (Auto) Delta # (Auto) Eos # (Auto) Baso # (Auto) Abs Immat Gran (auto) Absolute Neuts (auto) Absolute Nucleated RBC Nucleated RBC % (auto) Neutrophils % (Manual) Band Neutrophils % Lymphocytes % (Manual) Monocytes % (Manual) Eosinophils % (Manual) Abs Neuts (Manual) Lymphocytes # (Manual) Monocytes # (Manual) Platelet Estimate Plt Morphology Comment RBC Morphology Hypochromasia PT INR VBG pH VBG pCO2 VBG pO2 VBG HCO3 VBG O2 Saturation VBG Base Excess Anion Gap Estim Creat Clear Calc Estimated GFR POC Glucose Random Glucose Lactic Acid Lactic Acid F/U @ 2Hr 2.3 H* Calcium Magnesium Total Bilirubin Direct Bilirubin AST ALT Alkaline Phosphatase Ammonia Total Creatine Kinase Troponin I High Sens B-Natriuretic Peptide Total Protein Albumin Lipase Procalcitonin Urine Color Urine Appearance Urine pH Ur Specific [place] Urine Protein Urine Glucose (UA) Urine Ketones Urine Blood Urine Nitrite Ur Leukocyte Esterase Urine RBC Urine WBC Ur Squamous Epith Cells Urine Bacteria Hyaline Casts Granular Casts Urine Opiates Screen Ur Buprenorphine Scrn Ur Oxycodone Screen Urine Methadone Screen Urine Fentanyl Screen Ur Barbiturates Screen Ur Phencyclidine Scrn Ur Amphetamines Screen U Benzodiazepines Scrn Urine Cocaine Screen U Marijuana (THC) Screen Ethyl Alcohol Influenza Type A (PCR) Influenza Type B (PCR) RSV RNA Qual (PCR) SARS-CoV-2 RNA (RT-PCR) Blood Type Antibody Screen Imaging Radiologist's Impressions: Impressions Chest X-Ray 08/19/23 02:45 IMPRESSION: Lines and tubes in place as stated above. The endotracheal tube is approximately 1 cm above the dayana. Consider retracting 1 to 2 cm. Bilateral mid to lower lung field infiltrates greater on the right, possibly pneumonia Cervical Spine CT 08/19/23 04:30 IMPRESSION: 1. No acute intracranial process seen. 2. There is no acute cervical spine fracture or dislocation. There are degenerative disc changes and facet joint arthropathy as described above. 3. Bilateral upper lung field infiltrates. 4. Right sphenoid sinus opacity. Chest CT 08/19/23 04:30 IMPRESSION: Endotracheal tube extends into the proximal right mainstem bronchus. Recommend 3 cm retraction. Bilateral pulmonary infiltrates, right greater than left. Coronary artery calcification. Fleischner guidelines were followed. Head CT 08/19/23 04:30 IMPRESSION: 1. No acute intracranial process seen. 2. There is no acute cervical spine fracture or dislocation. There are degenerative disc changes and facet joint arthropathy as described above. 3. Bilateral upper lung field infiltrates. 4. Right sphenoid sinus opacity. Pelvis X-Ray 08/19/23 05:50 IMPRESSION: 1. No acute fracture or dislocation. 2. Lower lumbar fusion. Chest X-Ray 08/19/23 06:40 IMPRESSION: 1. Endotracheal tube with its tip approximately 4.2 cm proximal to the dayana. Right-sided central venous catheter in appropriate position. 2. Diffuse, patchy right-sided airspace opacities which appear slightly more prominent when compared to the recent chest CT. Previously seen left lower lobe airspace consolidation not well visualized on plain radiographs. Assessment and Plan (1) Acute hypoxemic respiratory failure: Status: Acute (2) Aspiration pneumonia: Status: Acute (3) NAOMI (acute kidney injury): Status: Acute (4) Rhabdomyolysis: Qualifiers: Rhabdomyolysis type: non-traumatic Qualified Code(s): M62.82 - Rhabdomyolysis Status: Acute (5) Multifocal pneumonia: Status: Acute (6) Overdose: Qualifiers: Encounter type: initial encounter Injury intent: undetermined intent Q ualified Code(s): T50.904A - Poisoning by unspecified drugs, medicaments and biological substances, undetermined, initial encounter Status: Acute Plan Mr. Jerson Taveras is a 53-year-old male with PMH of depression, GERD, dysphagia, BPH, bipolar, anemia, alcohol and opiate abuse, anxiety, GI bleed, achalasia s/p heller myotomy and balloon dilations was found unresponsive at home so EMS was called. Upon arrival of the EMS on Thursday was found to have pinpoint pupils with apneic breathing so was brought into the was intubated and placed on ventilator support, he is also found to be in shock needing Levophed support, acute kidney injury, rhabdomyolysis and a right-sided aspiration pneumonia for which MICU was consulted for admission. Neuro: Acute encephalopathy possibly due to drug overdose UDS positive for cocaine, opiates and fentanyl not responding to Narcan pushes Currently on propofol and Versed for sedation, fentanyl for analgesia Close neurological status monitoring in the ICU every hour Cardiac: Septic Shock: Possibly secondary to aspiration pneumonia On Levophed support, titrate Levophed to keep map above 65 mm Hg Patient received multiple fluid boluses as per sepsis protocol, currently on sodium bicarbonate at 150 cc/hour, blood cultures were sent, Zosyn was initiated. Initial lactate was 9.3 which responded well for fluid resuscitation is down to 2.5 now Respiratory: Acute hypoxemic respiratory failure due to aspiration pneumonia Currently on ventilator support On PRVC mode FiO2 50%, PEEP 5, TV 400, RR 20 Peak pressures and plateau pressures are under the curve Ventilator management bundle with head end elevation, aspiration precaution, chlorhexidine mouthwash, daily awakening trials, daily spontaneous breathing trials GI: We will start on tube feeds Renal: Acute kidney injury possibly secondary to ATN Baseline creatinine normal, creatinine today is 1.97 which decreased to 1.48 with fluid resuscitation We will closely monitor I's and O's Avoid nephrotoxic medications Heme: Chronic anemia, closely monitor H&H, transfuse for hemoglobin less than 7 grams/deciliter Infectious disease: Aspiration pneumonia-pancultures sent and is pending We will start on Zosyn for antibiotic coverage, we will get MRSA nares if positive we will add vancomycin Urinary tract infection: Pending urine cultures, on Zosyn Endocrine: Blood sugars under control Sliding scale insulin as needed Musculoskeletal: Decubitus ulcer prevention protocol Lines: Prophylaxis: Lovenox, pantoprazole
[2023-08-19 12:50] LABS: Reflex Lactate? 2 Y
[2023-08-19 12:56] LABS: MRSA Nasal PCR NEGATIVE (Negative); SA Nasal PCR NEGATIVE (Negative)
[2023-08-19] MEDS: propofoL 1,000 MG/100 ML VIAL 8.92 MG IVCONT ×2 (12:57→22:22)
[2023-08-19] MEDS: Heparin Sodium,Porcine 5,000 UNIT/ML VIAL 5000 UNIT SUBCUT ×2 (13:01→18:04)
[2023-08-19 14:09] LABS: Hematocrit 30.8 % (42.0-52.0); Mean Corpuscular HGB Conc 32.5 g/dl (31.0-36.0); Mean Corpuscular Hemoglobin 28.7 pg (27.0-33.0); Mean Corpuscular Volume 88.3 fL (80.0-98.0); Mean Platelet Volume 9.5 fL (9.4-12.4); Platelet Count 182 X10*3/uL (160-400); Red Blood Count 3.49 X10*6/uL (4.60-5.80); Red Cell Distribution Width 15.7 % (11.0-16.0); White Blood Count 6.2 X10*3/uL (4.8-10.8)
[2023-08-19 14:25] LABS: Phosphorus 1.4 mg/dL (2.7-4.5); ~Lactic Acid-LAB USE ONLY 4.4 mmol/L (0.5-2.0)
[2023-08-19 14:27] LABS: Estimated Average Glucose 117 mg/dL; Hemoglobin A1c % 5.7 % (<6.0)
[2023-08-19] MEDS: Furosemide 100 MG/10 ML VIAL 80 MG IVPUSH (15:37)
--- NOTE | 2023-08-19 15:47 | PC.NURSE ---
low uop: md aware of oliguria. 80 lasix ivp administered and nacl titrated up to 100 ml/hr per md
--- NOTE | 2023-08-19 18:16 | PC.NURSE ---
pt arrived from ED approximately 1145. upon admission pt had the following meds hanging from ED: vanco, NACL 1L bag, LR 1L bag, and zosyn; none of these closed out in jun from offgoing RN. meds finished using patients arrival time to ICU as end time. during report, offgoing RN reported that pt on 4 mg versed gtt. this was reflected in rate on pump, however order from ED provider remained at 2 mg. ICU MD provided corrected versed order at 4 mg starting at arrival time to ICU.
[2023-08-19] MEDS: Sodium Bicarbonate 8.4% 150 MEQ in Dextrose 5 % 850 ML IV (19:32)
[2023-08-19 20:03] LABS: Hemoglobin 9.9 g/dl (14.0-18.0); Mean Corpuscular HGB Conc 34.1 g/dl (31.0-36.0); Mean Corpuscular Hemoglobin 28.9 pg (27.0-33.0); Mean Corpuscular Volume 84.5 fL (80.0-98.0); Mean Platelet Volume 9.6 fL (9.4-12.4); Platelet Count 184 X10*3/uL (160-400); Red Blood Count 3.43 X10*6/uL (4.60-5.80); Red Cell Distribution Width 15.5 % (11.0-16.0); White Blood Count 11.9 X10*3/uL (4.8-10.8)
[2023-08-19 20:25] LABS: Alanine Aminotransferase 269 U/L (0-40); Albumin Level 2.3 g/dL (3.5-5.0); Alkaline Phosphatase 50 U/L (39-117); Anion Gap 16 (12-20); Aspartate Amino Transferase 1487 U/L (5-37); Bilirubin Total 0.5 mg/dL (0.0-1.0); Blood Urea Nitrogen 19 mg/dL (9-16); Calcium 6.8 mg/dL (8.4-10.2); Carbon Dioxide 23 mmol/L (22-29); Chloride 102 mmol/L (96-108); Creatinine Clr Calc Pharmacy 36.7; Estimated Glomerular Filt Rate 31; Glucose Random 174 mg/dL (60-115); Magnesium 1.2 mg/dL (1.6-2.6); Phosphorus 2.4 mg/dL (2.7-4.5); Potassium 3.5 mmol/L (3.3-5.1); Sodium 137 mmol/L (135-145); Total Protein 4.6 g/dL (6.5-8.0)
[2023-08-19] MEDS: Magnesium Sulfate/H2O 2 GM/50 ML PIGGYBACK IV ×2 (20:40→22:17)
[2023-08-19] MEDS: Norepinephrine Bitartrate/D5W 8 MG/250 ML PLAST..BAG 13.93 MG IV (22:17)
[2023-08-20] VITALS (42 sets, daily range): BP systolic 88–151; BP diastolic 49–94; PULSE 82–121; RESP 18–25; TEMP 35–37.8; O2SAT 92–100; BMI 27.5
[2023-08-20] MEDS: 0.9 % Sodium Chloride 1,000 ML 100 ML IVCONT (00:49)
[2023-08-20] MEDS: Pantoprazole Sodium 80 MG in 0.9 % Sodium Chloride 80 ML 10 MG IV (00:49)
[2023-08-20] MEDS: Sodium Bicarbonate 8.4% 150 MEQ in Dextrose 5 % 850 ML IV ×2 (01:47→10:09)
[2023-08-20] MEDS: Piperacillin Sodium/Tazobactam 3.375 GM in 0.9 % Sodium Chloride 50 ML IV ×4 (04:10→23:15)
[2023-08-20] MEDS: Heparin Sodium,Porcine 5,000 UNIT/ML VIAL 5000 UNIT SUBCUT ×3 (04:10→18:10)
[2023-08-20] MEDS: fentaNYL citrate/NS 1,000 MCG/100 ML PLAST..BAG 10 MCG IVCONT ×3 (04:11→23:17)
[2023-08-20] MEDS: Midazolam HCl/NS 50 MG/50 ML PLAST..BAG IVCONT (04:11)
[2023-08-20] MEDS: propofoL 1,000 MG/100 ML VIAL 8.92 MG IVCONT ×2 (05:13→15:43)
[2023-08-20 05:28] LABS: VBG Base Excess 11.1 mmol/L; VBG HCO3 32 mmol/L (22-26); VBG pCO2 31 mmHg; VBG pH 7.62 (7.32-7.43); VBG pO2 44 mmHg
[2023-08-20 05:32] LABS: Venous Blood Gas Refer to POC result
[2023-08-20 05:55] LABS: Hemoglobin 9.3 g/dl (14.0-18.0); Mean Corpuscular HGB Conc 35.8 g/dl (31.0-36.0); Mean Corpuscular Hemoglobin 29.4 pg (27.0-33.0); Mean Corpuscular Volume 82.3 fL (80.0-98.0); Mean Platelet Volume 9.5 fL (9.4-12.4); Platelet Count 178 X10*3/uL (160-400); Red Blood Count 3.16 X10*6/uL (4.60-5.80); Red Cell Distribution Width 15.3 % (11.0-16.0); WBC ABN SCTR FOR CBC 1
[2023-08-20 05:56] LABS: White Blood Count 17.8 X10*3/uL (4.8-10.8)
[2023-08-20 06:16] LABS: Alanine Aminotransferase 229 U/L (0-40); Albumin Level 1.9 g/dL (3.5-5.0); Alkaline Phosphatase 44 U/L (39-117); Anion Gap 18 (12-20); Aspartate Amino Transferase 1084 U/L (5-37); Bilirubin Total 0.5 mg/dL (0.0-1.0); Blood Urea Nitrogen 25 mg/dL (9-16); Calcium 6.4 mg/dL (8.4-10.2); Carbon Dioxide 25 mmol/L (22-29); Chloride 97 mmol/L (96-108); Creatinine Clr Calc Pharmacy 29.2; Estimated Glomerular Filt Rate 24; Glucose Random 183 mg/dL (60-115); Magnesium 2.1 mg/dL (1.6-2.6); Potassium 3.1 mmol/L (3.3-5.1); Sodium 137 mmol/L (135-145); Total Protein 4.1 g/dL (6.5-8.0)
[2023-08-20 06:19] LABS: Band Neutrophils Percent 59 % (3-5); Lymphocytes Absolute Manual 1.6 X10*3/uL (1.2-4.9); Lymphocytes Percent Manual 9 % (20-40); Metamyelocytes Absolute 0.9 X10*3/uL; Metamyelocytes Percent 5 %; Myelocytes Absolute 0.2 X10*/uL; Myelocytes Percent 1 %; Neutrophils Absolute Manual 15.1 X10*3/uL (2.0-8.3); Neutrophils Percent Manual 26 % (45-73)
[2023-08-20 06:20] LABS: RBC Morphology NOTED
[2023-08-20 06:21] LABS: Hypochromasia 1+ (5-14) /OIF; Microcytosis 1+ (5-14) /OIF; Platelet Estimate NORMAL (NORMAL); Platelet Morphology Comment NORMAL; Toxic Granulation PRESENT
[2023-08-20 08:32] LABS: VBG Base Excess 13.9 mmol/L; VBG HCO3 35 mmol/L (22-26); VBG pCO2 32 mmHg; VBG pH 7.64 (7.32-7.43); VBG pO2 45 mmHg
[2023-08-20] MEDS: Potassium Phosphate/NS 15 MMOL/250 ML PLAST..BAG 62.5 MMOL IV (08:34)
--- NOTE | 2023-08-20 08:49 | PM.CCPN ---
Subjective Subjective Date of Service: 08/20/23 Interval History: Remains on ventilator support On Versed, propofol and fentanyl drips for control of agitation On Levophed for vasopressor support Worsening rhabdomyolysis and acute kidney, urine output not so great Critical Care Time (minutes): 45 Physical Exam Vital Signs: Vital Signs: Last Vital Signs Temp 99.5 F 08/20/23 08:00 Pulse 99 08/20/23 08:28 Resp 18 08/20/23 08:00 BP 145/79 H 08/20/23 08:28 Pulse Ox 95 08/20/23 08:00 O2 Del Method Mechanical Ventil ation 08/20/23 08:00 FiO2 25 08/20/23 08:21 BMI result Body Mass Index 27.5 General: In acute distress, ill appearing and tired appearing Nutritional Appearance: Okay nourished and normal weight Eyes: appearance normal, both eyes and all related structures; Alignment and Position: alignment normal and position normal Neck: No lymphadenopathy, no thyromegaly Resp: bilateral air entry equal, bilateral crackles heard Cardio: Regular rate, regular rhythm; Heart sounds: S1 normal heart sound present and S2 normal heart sound present GI: soft, nontender, no guarding, no hepatosplenomegaly : bladder normal to inspection, bladder normal to palpation, no renal angle tenderness Skin: no rashes or lesions noted and elasticity normal Neuro: Sedated with multiple drips and moves all extremities, no focal deficits Objective Data Labs 08/20/23 05:08 08/20/23 05:08 Labs: Laboratory Results - last 24 hr 08/19/23 08/19/23 08/19/23 08:27 09:22 10:47 WBC 2.3 L RBC 3.64 L Hgb 10.4 L Hct 31.7 L MCV 87.1 D MCH 28.6 MCHC 32.8 RDW 15.5 Plt Count 202 MPV 9.2 L Immature Gran % (Auto) Cancelled Neut % (Auto) Cancelled Lymph % (Auto) Cancelled [place] % (Auto) Cancelled Eos % (Auto) Cancelled Baso % (Auto) Cancelled Lymph # (Auto) Cancelled [place] # (Auto) Cancelled Eos # (Auto) Cancelled Baso # (Auto) Cancelled Abs Immat Gran (auto) Cancelled Absolute Neuts (auto) Cancelled Absolute Nucleated RBC 0.000 Nucleated RBC % (auto) 0.0 Neutrophils % (Manual) 30 L Band Neutrophils % 18 H Lymphocytes % (Manual) 47 H Monocytes % (Manual) 4 Eosinophils % (Manual) 1 Metamyelocytes % Myelocytes % Abs Neuts (Manual) 1.1 L Lymphocytes # (Manual) 1.1 L Monocytes # (Manual) 0.1 Metamyelocytes # Myelocytes # Toxic Granulation Platelet Estimate NORMAL Plt Morphology Comment NORMAL RBC Morphology NOTED Hypochromasia 1+ (5-14) Microcytosis VBG pH VBG pCO2 VBG pO2 VBG HCO3 VBG O2 Saturation VBG Base Excess Sodium 140 Potassium 3.3 Chloride 105 Carbon Dioxide 24 Anion Gap 14 BUN 12 Creatinine 1.48 H Estim Creat Clear Calc 54.5 Estimated GFR 49 Random Glucose 79 Estimat Average Glucose Hemoglobin A1c % Lactic Acid 2.5 H* Lactic Acid F/U @ 2Hr 2.3 H* Lactic Acid F/U @ 4Hr Calcium 7.2 L D Phosphorus Magnesium Total Bilirubin AST ALT Alkaline Phosphatase Total Creatine Kinase > 20330 H Total Protein Albumin Nasal Screen MRSA (PCR) Nasal S. aureus Screen Nasal MRSA/S.aureus Interp 08/19/23 08/19/23 08/19/23 11:17 13:59 19:56 WBC 6.2 11.9 H RBC 3.49 L 3.43 L Hgb 10.0 L 9.9 L Hct 30.8 L 29.0 L MCV 88.3 84.5 MCH 28.7 28.9 MCHC 32.5 34.1 RDW 15.7 15.5 Plt Count 182 184 MPV 9.5 9.6 Immature Gran % (Auto) Neut % (Auto) Lymph % (Auto) [place] % (Auto) Eos % (Auto) Baso % (Auto) Lymph # (Auto) [place] # (Auto) Eos # (Auto) Baso # (Auto) Abs Immat Gran (auto) Absolute Neuts (auto) Absolute Nucleated RBC 0.000 0.000 Nucleated RBC % (auto) 0.0 0.0 Neutrophils % (Manual) Band Neutrophils % Lymphocytes % (Manual) Monocytes % (Manual) Eosinophils % (Manual) Metamyelocytes % Myelocytes % Abs Neuts (Manual) Lymphocytes # (Manual) Monocytes # (Manual) Metamyelocytes # Myelocytes # Toxic Granulation Platelet Estimate Plt Morphology Comment RBC Morphology Hypochromasia Microcytosis VBG pH VBG pCO2 VBG pO2 VBG HCO3 VBG O2 Saturation VBG Base Excess Sodium Potassium Chloride Carbon Dioxide Anion Gap BUN Creatinine Estim Creat Clear Calc Estimated GFR Random Glucose Estimat Average Glucose 117 Hemoglobin A1c % 5.7 Lactic Acid Lactic Acid F/U @ 2Hr Lactic Acid F/U @ 4Hr 4.4 H* Calcium Phosphorus 1.4 L Magnesium Total Bilirubin AST ALT Alkaline Phosphatase Total Creatine Kinase Total Protein Albumin Nasal Screen MRSA (PCR) NEGATIVE Nasal S. aureus Screen NEGATIVE Nasal MRSA/S.aureus Interp SEE NOTE 08/19/23 08/20/23 08/20/23 20:00 05:08 05:20 WBC 17.8 H RBC 3.16 L Hgb 9.3 L Hct 26.0 L MCV 82.3 MCH 29.4 MCHC 35.8 RDW 15.3 Plt Count 178 MPV 9.5 Immature Gran % (Auto) Cancelled Neut % (Auto) Cancelled Lymph % (Auto) Cancelled [place] % (Auto) Cancelled Eos % (Auto) Cancelled Baso % (Auto) Cancelled Lymph # (Auto) Cancelled [place] # (Auto) Cancelled Eos # (Auto) Cancelled Baso # (Auto) Cancelled Abs Immat Gran (auto) Cancelled Absolute Neuts (auto) Cancelled Absolute Nucleated RBC 0.000 Nucleated RBC % (auto) 0.0 Neutrophils % (Manual) 26 L Band Neutrophils % 59 H Lymphocytes % (Manual) 9 L Monocytes % (Manual) Eosinophils % (Manual) Metamyelocytes % 5 Myelocytes % 1 Abs Neuts (Manual) 15.1 H Lymphocytes # (Manual) 1.6 Monocytes # (Manual) Metamyelocytes # 0.9 Myelocytes # 0.2 Toxic Granulation PRESENT Platelet Estimate NORMAL Plt Morphology Comment NORMAL RBC Morphology NOTED Hypochromasia 1+ (5-14) Microcytosis 1+ (5-14) VBG pH 7.62 H* VBG pCO2 31 VBG pO2 44 VBG HCO3 32 H VBG O2 Saturation 77.0 VBG Base Excess 11.1 Sodium 137 137 Potassium 3.5 3.1 L Chloride 102 97 Carbon Dioxide 23 25 Anion Gap 16 18 BUN 19 H 25 H Creatinine 2.20 H 2.76 H Estim Creat Clear Calc 36.7 29.2 Estimated GFR 31 24 Random Glucose 174 H 183 H Estimat Average Glucose Hemoglobin A1c % Lactic Acid Lactic Acid F/U @ 2Hr Lactic Acid F/U @ 4Hr Calcium 6.8 L 6.4 L Phosphorus 2.4 L 2.0 L Magnesium 1.2 L* 2.1 Total Bilirubin 0.5 0.5 AST 1487 H 1084 H ALT 269 H 229 H Alkaline Phosphatase 50 44 Total Creatine Kinase > 67159 H > 57277 H Total Protein 4.6 L 4.1 L Albumin 2.3 L 1.9 L Nasal Screen MRSA (PCR) Nasal S. aureus Screen Nasal MRSA/S.aureus Interp 08/20/23 08:24 WBC RBC Hgb Hct MCV MCH MCHC RDW Plt Count MPV Immature Gran % (Auto) Neut % (Auto) Lymph % (Auto) [place] % (Auto) Eos % (Auto) Baso % (Auto) Lymph # (Auto) [place] # (Auto) Eos # (Auto) Baso # (Auto) Abs Immat Gran (auto) Absolute Neuts (auto) Absolute Nucleated RBC Nucleated RBC % (auto) Neutrophils % (Manual) Band Neutrophils % Lymphocytes % (Manual) Monocytes % (Manual) Eosinophils % (Manual) Metamyelocytes % Myelocytes % Abs Neuts (Manual) Lymphocytes # (Manual) Monocytes # (Manual) Metamyelocytes # Myelocytes # Toxic Granulation Platelet Estimate Plt Morphology Comment RBC Morphology Hypochromasia Microcytosis VBG pH 7.64 H* VBG pCO2 32 VBG pO2 45 VBG HCO3 35 H VBG O2 Saturation 78.0 VBG Base Excess 13.9 Sodium Potassium Chloride Carbon Dioxide Anion Gap BUN Creatinine Estim Creat Clear Calc Estimated GFR Random Glucose Estimat Average Glucose Hemoglobin A1c % Lactic Acid Lactic Acid F/U @ 2Hr Lactic Acid F/U @ 4Hr Calcium Phosphorus Magnesium Total Bilirubin AST ALT Alkaline Phosphatase Total Creatine Kinase Total Protein Albumin Nasal Screen MRSA (PCR) Nasal S. aureus Screen Nasal MRSA/S.aureus Interp Microbiology Microbiology Results: Microbiology 08/19/23 02:59 Blood - Venous Blood Culture - Preliminary No growth after 24 hours. 08/19/23 02:59 Blood - Venous Blood Culture - Preliminary No growth after 24 hours. Progress Note: A&P Assessment and plan (1) Aspiration pneumonia: Status: Acute (2) Acute hypoxemic respiratory failure: Status: Acute (3) NAOMI (acute kidney injury): Status: Acute (4) Rhabdomyolysis: Status: Acute (5) Multifocal pneumonia: Status: Acute (6) Overdose: Status: Acute Plan Mr. Jerson Taveras is a 53-year-old male with PMH of depression, GERD, dysphagia, BPH, bipolar, anemia, alcohol and opiate abuse, anxiety, GI bleed, achalasia s/p heller myotomy and balloon dilations was found unresponsive at home so EMS was called. Upon arrival of the EMS on Thursday was found to have pinpoint pupils with apneic breathing so was brought into the was intubated and placed on ventilator support, he is also found to be in shock needing Levophed support, acute kidney injury, rhabdomyolysis and a right-sided aspiration pneumonia for which MICU was consulted for admission. Neuro: Acute encephalopathy possibly due to drug overdose CT head did not show any acute intracranial pathology UDS positive for cocaine, opiates and fentanyl not responding to Narcan pushes Currently on propofol and Versed for sedation, fentanyl for analgesia, we will turn off the Versed and if needed we will add Precedex Close neurological status monitoring in the ICU Cardiac: Septic Shock: Possibly secondary to aspiration pneumonia On Levophed support, titrate Levophed to keep map above 65 mm Hg Respiratory: Acute hypoxemic respiratory failure due to aspiration pneumonia right more than Currently on ventilator support slight improvement On PRVC mode FiO2 decreased to 25%, PEEP 5, TV 400, RR decreased to 69 he is alkalotic Peak pressures and plateau pressures are under the curve Ventilator management bundle with head end elevation, aspiration precaution, chlorhexidine mouthwash, daily awakening trials, daily spontaneous breathing trials GI: Acute GI bleed: Hemoglobin stable possibly due to stress ulcers will switch from pantoprazole drip to IV push BID Renal: Acute kidney injury possibly secondary to ATN Baseline creatinine normal, creatinine slowly worsening with worsening rhabdomyolysis, increase to 2.76 today We will closely monitor I's and O's Avoid nephrotoxic medications Rhabdomyolysis: Secondary to drug overdose, unknown downtime CPK more than 46,000 today We will stop the bicarb drip and increase the sodium chloride 250 cc/hour to a target urine output off 150 cc per hour. We will also assist with Lasix 80 mg b.i.d. for diuresis Heme: Chronic anemia, closely monitor H&H, transfuse for hemoglobin less than 7 grams/deciliter Infectious disease: Aspiration pneumonia-pancultures negative so far Continue Zosyn for antibiotic coverage, MRSA nares negative Urinary tract infection: Pending urine cultures, on Zosyn Endocrine: Blood sugars under control Sliding scale insulin as needed Musculoskeletal: Decubitus ulcer prevention protocol Lines: Right IJ TLC Bess catheter Prophylaxis: Heparin, pantoprazole Quality Stroke Does the patient have a stroke diagnosis?: No VTE Prior VTE?: No VTE Risk Level:: Medical - low VTE Device Contraindication: N/A - Device Ordered VTE Drug Contraindication: N/A - Med Ordered
[2023-08-20] MEDS: 0.9 % Sodium Chloride 1,000 ML 250 ML IVCONT ×4 (09:37→21:30)
[2023-08-20] MEDS: Furosemide 100 MG/10 ML VIAL 80 MG IVPUSH ×2 (10:04→16:13)
[2023-08-20 10:35] LABS: Venous Blood Gas Refer to POC result
--- NOTE | 2023-08-20 10:57 | P.CDIM_ITS ---
PROVIDER RESPONSE TEXT: To clarify, the appropriate diagnosis supported by the clinical indicators: Nontraumatic Rhabdomyolysis QUERY TEXT: PHYSICIAN'S DOCUMENTATION REQUEST Date of Query: 08/20/2023 08:53 AM EDT Patient Name: Jerson Taveras Admit Date: 08/19/2023 Dear Tylor Coyle MD, A review of the medical record indicates additional documentation may be needed. Please review below and update the documentation accordingly. CLINICAL INDICATORS: 911 called for man down. Found unresponsive. Altered mental status, decreased responsiveness and intoxication with vomit on the floor per EMS. Bruising started to show up on right hip [place] [address] [place] Based on the above, could you please clarify any further specifics to the diagnosis of Rhabdomyolysis : Nontraumatic Rhabdomyolysis Traumatic Rhabdomyolysis Other (explain) Clinically unable to determine (explain) Thank you, Mirta Feliciano, CCS, CDIS Use of terms such as suspected, likely, concern for, or probable (associated with a specific diagnosi s that is being evaluated, monitored, or treated as if it exists) are acceptable and can be coded in the inpatient se tting, when documented at the time of discharge. Please use your independent medical judgment in providing your response. THIS QUERY IS PART OF THE PERMANENT MEDICAL RECORD
--- NOTE | 2023-08-20 12:42 | MHC.CM.PN ---
Pt remains intubated in ICU on ventilatory support - pt found down w/respiratory distress, rhabdo and + tox screen. Call placed to pt's nephew/HCP, Dheeraj. Dheeraj states pt resides alone, does not have DME or medical services but has a woman who works for him - Dheeraj did not know the agency or what tasks this person provides. Dheeraj updated on pt condition and states he assists pt with transportation on occasion. He may be able to transport pt to home at time of d/c. Pt also has a dtr, Laurie who resides in [place] - contact info in EMR. Pt's d/c needs are not yet known and will depend on recovery. Pt should be seen by CARE team when medically stable to address ongoing substance use (Dheeraj states he was aware of his uncle's use). HCP on file, PCP is Dr. Martinez. CM to follow.
[2023-08-20 12:45] LABS: Hematocrit 31.4 % (42.0-52.0); Hemoglobin 10.4 g/dl (14.0-18.0); Mean Corpuscular HGB Conc 33.1 g/dl (31.0-36.0); Mean Corpuscular Hemoglobin 29.1 pg (27.0-33.0); Mean Corpuscular Volume 87.7 fL (80.0-98.0); Mean Platelet Volume 10.1 fL (9.4-12.4); Platelet Count 164 X10*3/uL (160-400); Red Blood Count 3.58 X10*6/uL (4.60-5.80); Red Cell Distribution Width 15.9 % (11.0-16.0); White Blood Count 25.5 X10*3/uL (4.8-10.8)
[2023-08-20] MEDS: Pantoprazole Sodium 40 MG/10 ML VIAL IVPUSH (16:14)
[2023-08-20] MEDS: propofoL 1,000 MG/100 ML VIAL 17.83 MG IVCONT (19:42)
[2023-08-20] MEDS: Norepinephrine Bitartrate/D5W 8 MG/250 ML PLAST..BAG 11.15 MG IV (19:47)
[2023-08-20 21:03] LABS: Hematocrit 24.9 % (42.0-52.0); Hemoglobin 8.7 g/dl (14.0-18.0); Mean Corpuscular HGB Conc 34.9 g/dl (31.0-36.0); Mean Corpuscular Hemoglobin 28.7 pg (27.0-33.0); Mean Corpuscular Volume 82.2 fL (80.0-98.0); Mean Platelet Volume 10.4 fL (9.4-12.4); Platelet Count 169 X10*3/uL (160-400); Red Blood Count 3.03 X10*6/uL (4.60-5.80); Red Cell Distribution Width 15.7 % (11.0-16.0); White Blood Count 21.1 X10*3/uL (4.8-10.8)
[2023-08-20] MEDS: Albumin Human 25 % 100 ML IV ×2 (21:55→22:57)
[2023-08-20 23:28] LABS: Alanine Aminotransferase 192 U/L (0-40); Albumin Level 2.3 g/dL (3.5-5.0); Alkaline Phosphatase 55 U/L (39-117); Anion Gap 17 (12-20); Aspartate Amino Transferase 729 U/L (5-37); Bilirubin Total 0.5 mg/dL (0.0-1.0); Blood Urea Nitrogen 31 mg/dL (9-16); Calcium 6.5 mg/dL (8.4-10.2); Carbon Dioxide 25 mmol/L (22-29); Chloride 102 mmol/L (96-108); Creatinine Clr Calc Pharmacy 20.4; Estimated Glomerular Filt Rate 16; Glucose Random 96 mg/dL (60-115); Potassium 3.8 mmol/L (3.3-5.1); Sodium 140 mmol/L (135-145); Total Protein 4.6 g/dL (6.5-8.0)
[2023-08-21] VITALS (38 sets, daily range): BP systolic 97–160; BP diastolic 29–92; PULSE 74–104; RESP 18–30; TEMP 34.6–37.9; O2SAT 90–97; BMI 29.8
[2023-08-21] MEDS: Albumin Human 25 % 100 ML IV ×2 (00:06→01:07)
[2023-08-21] MEDS: Furosemide 100 MG/10 ML VIAL 80 MG IVPUSH ×3 (00:13→16:10)
[2023-08-21] MEDS: 0.9 % Sodium Chloride 1,000 ML 250 ML IVCONT ×3 (01:01→08:32)
[2023-08-21] MEDS: propofoL 1,000 MG/100 ML VIAL 17.83 MG IVCONT (01:02)
[2023-08-21 01:11] LABS: Magnesium 1.9 mg/dL (1.6-2.6); Phosphorus 5.1 mg/dL (2.7-4.5)
[2023-08-21] MEDS: Heparin Sodium,Porcine 5,000 UNIT/ML VIAL 5000 UNIT SUBCUT ×3 (02:43→18:17)
[2023-08-21 05:19] LABS: VBG Base Excess 2.4 mmol/L; VBG HCO3 27 mmol/L (22-26); VBG pCO2 41 mmHg; VBG pH 7.42 (7.32-7.43); VBG pO2 51 mmHg
[2023-08-21 05:43] LABS: Hemoglobin 7.1 g/dl (14.0-18.0); Mean Corpuscular HGB Conc 34.1 g/dl (31.0-36.0); Mean Corpuscular Hemoglobin 28.7 pg (27.0-33.0); Mean Corpuscular Volume 84.2 fL (80.0-98.0); Mean Platelet Volume 10.3 fL (9.4-12.4); Platelet Count 103 X10*3/uL (160-400); Red Blood Count 2.47 X10*6/uL (4.60-5.80); Red Cell Distribution Width 15.9 % (11.0-16.0)
[2023-08-21 05:45] LABS: WBC ABN SCTR FOR CBC 1; White Blood Count 12.7 X10*3/uL (4.8-10.8)
[2023-08-21 05:46] LABS: Hematocrit 20.8 % (42.0-52.0)
[2023-08-21 05:49] LABS: Venous Blood Gas Refer to POC result
[2023-08-21] MEDS: Pantoprazole Sodium 40 MG/10 ML VIAL IVPUSH ×2 (05:54→16:10)
[2023-08-21] MEDS: Piperacillin Sodium/Tazobactam 3.375 GM in 0.9 % Sodium Chloride 50 ML IV ×3 (05:55→17:39)
[2023-08-21] MEDS: propofoL 1,000 MG/100 ML VIAL 13.37 MG IVCONT (05:59)
[2023-08-21 06:00] LABS: Alanine Aminotransferase 131 U/L (0-40); Alkaline Phosphatase 42 U/L (39-117); Anion Gap 19 (12-20); Aspartate Amino Transferase 480 U/L (5-37); Bilirubin Total 0.7 mg/dL (0.0-1.0); Blood Urea Nitrogen 35 mg/dL (9-16); Calcium 6.8 mg/dL (8.4-10.2); Carbon Dioxide 23 mmol/L (22-29); Chloride 103 mmol/L (96-108); Creatinine Clr Calc Pharmacy 21.6; Estimated Glomerular Filt Rate 15; Glucose Random 86 mg/dL (60-115); Magnesium 1.9 mg/dL (1.6-2.6); Phosphorus 5.9 mg/dL (2.7-4.5); Potassium 3.6 mmol/L (3.3-5.1); Sodium 141 mmol/L (135-145); Total Protein 4.8 g/dL (6.5-8.0)
[2023-08-21 06:12] LABS: Band Neutrophils Percent 49 % (3-5); Eosinophils Absolute Manual 0.4 X10*3/uL (0.0-0.4); Eosinophils Percent Manual 3 % (0-4); Lymphocytes Absolute Manual 0.6 X10*3/uL (1.2-4.9); Lymphocytes Percent Manual 5 % (20-40); Neutrophils Absolute Manual 11.7 X10*3/uL (2.0-8.3); Neutrophils Percent Manual 43 % (45-73)
[2023-08-21 06:13] LABS: Burr Cells 1+ (0-2) /OIF; Hypochromasia 1+ (5-14) /OIF; Large Platelet PRESENT; Microcytosis 1+ (5-14) /OIF; Ovalocytes 1+ (5-14) /OIF; Platelet Estimate DECREASED (NORMAL); Platelet Morphology Comment NOTED; Polychromasia 1+ (0-2) /OIF; RBC Morphology NOTED; Tear Drop Cells 1+ (0-2) /OIF
[2023-08-21 06:14] LABS: Dohle Bodies PRESENT; Smudge Cells PRESENT; Toxic Granulation PRESENT
--- NOTE | 2023-08-21 08:58 | PM.CCPN ---
Subjective Subjective Date of Service: 08/21/23 Interval History: Continues to be critically ill on ventilator support with multiple organ failures On Levophed for vasopressor support Worsening acute kidney injury On propofol and fentanyl for sedation and analgesia Critical Care Time (minutes): 50 Physical Exam Vital Signs: Vital Signs: Last Vital Signs Temp 96.3 F L 08/21/23 08:51 Pulse 77 08/21/23 08:51 Resp 22 H 08/21/23 08:51 BP 140/81 H 08/21/23 08:51 Pulse Ox 93 08/21/23 08:51 O2 Del Method Mechanical Ventil ation 08/21/23 08:51 FiO2 25 08/21/23 08:51 BMI result Body Mass Index 29.8 General: acute distress, ill appearing and tired appearing Nutritional Appearance: well nourished and normal weight Eyes: appearance normal, both eyes and all related structures; Alignment and Position: alignment normal and position normal Neck: No lymphadenopathy, no thyromegaly Resp: bilateral air entry equal, occasional added sounds present bilaterally Cardio: Regular rate, regular rhythm; Heart sounds: S1 normal heart sound present and S2 normal heart sound present GI: soft, nontender, no guarding, no hepatosplenomegaly : bladder normal to inspection, bladder normal to palpation, no renal angle tenderness Skin: no rashes or lesions noted and elasticity normal Neuro: Sedated with propofol, does not follow any commands, no focal deficits Objective Data Labs 08/21/23 05:07 08/21/23 05:07 Labs: Laboratory Results - last 24 hr 08/20/23 08/20/23 08/20/23 12:28 20:11 22:40 WBC 25.5 H 21.1 H RBC 3.58 L 3.03 L Hgb 10.4 L 8.7 L Hct 31.4 L D 24.9 L D MCV 87.7 D 82.2 D MCH 29.1 28.7 MCHC 33.1 34.9 RDW 15.9 15.7 Plt Count 164 169 MPV 10.1 10.4 Immature Gran % (Auto) Neut % (Auto) Lymph % (Auto) [place] % (Auto) Eos % (Auto) Baso % (Auto) Lymph # (Auto) [place] # (Auto) Eos # (Auto) Baso # (Auto) Abs Immat Gran (auto) Absolute Neuts (auto) Absolute Nucleated RBC 0.000 0.000 Nucleated RBC % (auto) 0.0 0.0 Neutrophils % (Manual) Band Neutrophils % Lymphocytes % (Manual) Eosinophils % (Manual) Abs Neuts (Manual) Lymphocytes # (Manual) Eosinophils # (Manual) Smudge Cells Toxic Granulation Dohle Bodies Platelet Estimate Large Platelets Plt Morphology Comment RBC Morphology Polychromasia Hypochromasia Microcytosis Tear Drop Cells Ovalocytes Hilario Cells VBG pH VBG pCO2 VBG pO2 VBG HCO3 VBG O2 Saturation VBG Base Excess Sodium 140 Potassium 3.8 D Chloride 102 Carbon Dioxide 25 Anion Gap 17 BUN 31 H Creatinine 3.94 H Estim Creat Clear Calc 20.4 Estimated GFR 16 Random Glucose 96 Calcium 6.5 L Phosphorus 5.1 H Magnesium 1.9 Total Bilirubin 0.5 AST 729 H ALT 192 H Alkaline Phosphatase 55 Total Protein 4.6 L Albumin 2.3 L 08/21/23 08/21/23 05:07 05:12 WBC 12.7 H RBC 2.47 L Hgb 7.1 L Hct 20.8 L* MCV 84.2 MCH 28.7 MCHC 34.1 RDW 15.9 Plt Count 103 L D MPV 10.3 Immature Gran % (Auto) Cancelled Neut % (Auto) Cancelled Lymph % (Auto) Cancelled [place] % (Auto) Cancelled Eos % (Auto) Cancelled Baso % (Auto) Cancelled Lymph # (Auto) Cancelled [place] # (Auto) Cancelled Eos # (Auto) Cancelled Baso # (Auto) Cancelled Abs Immat Gran (auto) Cancelled Absolute Neuts (auto) Cancelled Absolute Nucleated RBC 0.000 Nucleated RBC % (auto) 0.0 Neutrophils % (Manual) 43 L Band Neutrophils % 49 H Lymphocytes % (Manual) 5 L Eosinophils % (Manual) 3 Abs Neuts (Manual) 11.7 H Lymphocytes # (Manual) 0.6 L Eosinophils # (Manual) 0.4 Smudge Cells PRESENT Toxic Granulation PRESENT Dohle Bodies PRESENT Platelet Estimate DECREASED Large Platelets PRESENT Plt Morphology Comment NOTED RBC Morphology NOTED Polychromasia 1+ (0-2) Hypochromasia 1+ (5-14) Microcytosis 1+ (5-14) Tear Drop Cells 1+ (0-2) Ovalocytes 1+ (5-14) Hilario Cells 1+ (0-2) VBG pH 7.42 VBG pCO2 41 VBG pO2 51 VBG HCO3 27 H VBG O2 Saturation 81.0 VBG Base Excess 2.4 Sodium 141 Potassium 3.6 Chloride 103 Carbon Dioxide 23 Anion Gap 19 BUN 35 H Creatinine 4.17 H* Estim Creat Clear Calc 21.6 Estimated GFR 15 Random Glucose 86 Calcium 6.8 L Phosphorus 5.9 H Magnesium 1.9 Total Bilirubin 0.7 AST 480 H ALT 131 H Alkaline Phosphatase 42 Total Protein 4.8 L Albumin 3.0 L Microbiology Microbiology Results: Microbiology 08/19/23 02:59 Blood - Venous Blood Culture - Preliminary No growth after 48 hours. 08/19/23 02:59 Blood - Venous Blood Culture - Preliminary No growth after 48 hours. 08/19/23 Unknown Urine Catheterized - Bess Catheter Urine Culture - Final No growth. Progress Note: A&P Assessment and plan (1) Aspiration pneumonia: Status: Acute (2) Acute hypoxemic respiratory failure: Status: Acute (3) NAOMI (acute kidney injury): Status: Acute (4) Rhabdomyolysis: Status: Acute (5) Multifocal pneumonia: Status: Acute (6) Overdose: Status: Acute Plan Mr. Jerson Taveras is a 53-year-old male with PMH of depression, GERD, dysphagia, BPH, bipolar, anemia, alcohol and opiate abuse, anxiety, GI bleed, achalasia s/p heller myotomy and balloon dilations was found unresponsive at home so EMS was called. Upon arrival of the EMS on Thursday was found to have pinpoint pupils with apneic breathing so was brought into the was intubated and placed on ventilator support, he is also found to be in shock needing Levophed support, acute kidney injury, rhabdomyolysis and a right-sided aspiration pneumonia for which MICU was consulted for admission. Neuro: Acute encephalopathy possibly due to drug overdose CT head did not show any acute intracranial pathology UDS positive for cocaine, opiates and fentanyl not responding to Narcan pushes Currently on propofol and Versed for sedation, fentanyl for analgesia, we will taper propofol for weaning from ventilator Close neurological status monitoring in the ICU Cardiac: Septic Shock: Possibly secondary to aspiration pneumonia On Levophed support, titrate Levophed to keep map above 65 mm Hg Respiratory: Acute hypoxemic respiratory failure due to aspiration pneumonia right more than left Currently on ventilator support increase in oxygen requirement overnight On PRVC mode FiO2 increased to 50 %, PEEP 5, TV 400, RR decreased to 16 Peak pressures and plateau pressures are under the curve Ventilator management bundle with head end elevation, aspiration precaution, chlorhexidine mouthwash, daily awakening trials, daily spontaneous breathing trials GI: Acute GI bleed: Hemoglobin stable possibly due to stress ulcers Continue pantoprazole IV push BID We will start him on low-dose tube feeds today Renal: Acute kidney injury possibly secondary to ATN Baseline creatinine normal, creatinine slowly worsening with worsening rhabdomyolysis, increase to 4.17 today; urine output 1.3 L in 24 hours. We will stop the IV fluids as patient is getting grossly volume overloaded and is significantly positive since admission We will closely monitor I's and O's Avoid nephrotoxic medications Rhabdomyolysis: Secondary to drug overdose, unknown downtime CPK more than 46,000, we will repeat CPK now and tomorrow Continue Lasix 80 mg b.i.d. for diuresis We will stop the IV fluids as patient is grossly volume overloaded and is significantly positive since admission Heme: Chronic anemia, closely monitor H&H, transfuse for hemoglobin less than 7 grams/deciliter Infectious disease: Aspiration pneumonia-pancultures negative so far Continue Zosyn for antibiotic coverage, MRSA nares negative Urinary tract infection: Pending urine cultures, on Zosyn Endocrine: Blood sugars under control Sliding scale insulin as needed Musculoskeletal: Decubitus ulcer prevention protocol Lines: Right IJ TLC Bess catheter Prophylaxis: Heparin, pantoprazole Quality Stroke Does the patient have a stroke diagnosis?: No VTE Prior VTE?: No VTE Risk Level:: Medical - low VTE Device Contraindication: N/A - Device Ordered VTE Drug Contraindication: N/A - Med Ordered
[2023-08-21] MEDS: fentaNYL citrate/NS 1,000 MCG/100 ML PLAST..BAG 10 MCG IVCONT ×2 (09:16→19:10)
[2023-08-21] MEDS: dexmedeTOMIDidine HCL/NS 400 MCG/100 ML INFUS..BTL 22.2 MCG IVCONT ×2 (10:34→22:02)
--- NOTE | 2023-08-21 10:40 | MHC.CLN ---
F/U PT IS INTUBATED AND SEDATED DISCUSSED AT ROUNDS WITH MD CAN START TF TODAY PER MD RECOMMEND PROMOTE AT MAX GOAL RATE 75ML/HR TO PROVIDE 1800KCALS (2153KCALS WITH SEDATION; 26KCALS/KG), 112G PROTEIN (1.4G/KG), 1510ML FREE WATER HOLD FREE WATER FLUSHES AT THIS TIME MONITOR TOLERANCE AND LYTES RD CAN BE REACHED VIA TIGER CONNECT DURING OFF HOURS IF NEEDED
--- NOTE | 2023-08-21 13:01 | MHC.CM.PN ---
Addendum entered by Fatou Fierro 08/21/23 13:09: Received call from pt's HCP/nephew Dheeraj who again asked that he be removed from serving as pt's HCP. He has a daughter that can do it. I don't like the responsibility. This CM explained again that a HCP can be changed once the pt is able to name a new agent and assist w/a new form completion. Suggested that Dheeraj consult w/Laurie, pt's dtr, before making any care decisions to lessen the burden he feels regarding care decisions. Offered to facilitate any care meetings to assist w/decision making. CM to follow. Original Note: Pt remains in ICU on ventilatory support d/t asp. pneumonia, rhabdo and ? OD. Pt is grossly fluid overloaded w/approx 16 liters positive. Plan for the day is to reduce sedation and attempt extubation, continue Lasix gtt and Albumin. CM received calls from [facility] where pt receives skilled RN visits for medication assistance and from [facility] where pt has a caseworker intake. Per RYAN Ruffin ([phone]) pt has services that enable pt to live independently in the community as well as in a [facility] subsidized apartment Pt has a history of 'firing' his VNA, being non compliant with treatment plans, and continued substance abuse. Pt has been to several respite and rehab centers in the past per Laly. Pt has an outpt psychiatrist Bud Love. Laly is requesting frequent calls for updates - explained that pt may require STR placement following his prolonged ICU stay. CM to make STR referrals in the likely event pt will require a higher level of medical oversight following [facility] d/c.
[2023-08-21] MEDS: dexmedeTOMIDidine HCL/NS 400 MCG/100 ML INFUS..BTL 26.64 MCG IVCONT ×2 (13:49→17:35)
[2023-08-22] VITALS (35 sets, daily range): BP systolic 114–158; BP diastolic 52–85; PULSE 70–96; RESP 15–30; TEMP 34.7–36.8; O2SAT 91–97; BMI 29.4
[2023-08-22] MEDS: Piperacillin Sodium/Tazobactam 3.375 GM in 0.9 % Sodium Chloride 50 ML IV ×5 (00:12→23:35)
[2023-08-22] MEDS: Furosemide 100 MG/10 ML VIAL 80 MG IVPUSH ×3 (00:13→16:24)
[2023-08-22] MEDS: Heparin Sodium,Porcine 5,000 UNIT/ML VIAL 5000 UNIT SUBCUT ×3 (02:23→18:22)
[2023-08-22] MEDS: dexmedeTOMIDidine HCL/NS 400 MCG/100 ML INFUS..BTL 22.2 MCG IVCONT ×4 (02:25→16:21)
[2023-08-22] MEDS: fentaNYL citrate/NS 1,000 MCG/100 ML PLAST..BAG 10 MCG IVCONT ×3 (05:09→23:33)
[2023-08-22 05:24] LABS: VBG Base Excess 1.6 mmol/L; VBG HCO3 26 mmol/L (22-26); VBG pCO2 41 mmHg; VBG pH 7.41 (7.32-7.43); VBG pO2 51 mmHg
[2023-08-22 05:26] LABS: Venous Blood Gas Refer to POC result
[2023-08-22] MEDS: Pantoprazole Sodium 40 MG/10 ML VIAL IVPUSH ×2 (05:55→16:23)
[2023-08-22 06:34] LABS: Hematocrit 23.5 % (42.0-52.0); Hemoglobin 7.9 g/dl (14.0-18.0); Mean Corpuscular HGB Conc 33.6 g/dl (31.0-36.0); Mean Corpuscular Hemoglobin 28.6 pg (27.0-33.0); Mean Corpuscular Volume 85.1 fL (80.0-98.0); Mean Platelet Volume 10.9 fL (9.4-12.4); Red Blood Count 2.76 X10*6/uL (4.60-5.80); Red Cell Distribution Width 15.9 % (11.0-16.0); White Blood Count 18.2 X10*3/uL (4.8-10.8)
[2023-08-22 06:51] LABS: Alanine Aminotransferase 123 U/L (0-40); Albumin Level 2.7 g/dL (3.5-5.0); Alkaline Phosphatase 69 U/L (39-117); Anion Gap 21 (12-20); Aspartate Amino Transferase 326 U/L (5-37); Blood Urea Nitrogen 44 mg/dL (9-16); Calcium 7.4 mg/dL (8.4-10.2); Carbon Dioxide 21 mmol/L (22-29); Chloride 103 mmol/L (96-108); Creatinine Clr Calc Pharmacy 16.7; Estimated Glomerular Filt Rate 11; Glucose Random 131 mg/dL (60-115); Magnesium 2.2 mg/dL (1.6-2.6); Phosphorus 8.5 mg/dL (2.7-4.5); Sodium 141 mmol/L (135-145); Total Protein 5.1 g/dL (6.5-8.0)
[2023-08-22 08:01] LABS: Band Neutrophils Percent 28 % (3-5); Eosinophils Absolute Manual 0.2 X10*3/uL (0.0-0.4); Eosinophils Percent Manual 1 % (0-4); Lymphocytes Absolute Manual 0.4 X10*3/uL (1.2-4.9); Lymphocytes Percent Manual 2 % (20-40); Monocytes Absolute Manual 0.4 X10*3/uL (0.1-1.2); Monocytes Percent Manual 2 % (2-11); Neutrophils Absolute Manual 17.3 X10*3/uL (2.0-8.3); Neutrophils Percent Manual 67 % (45-73); RBC Morphology NOTED
[2023-08-22 08:07] LABS: Hypochromasia 1+ (5-14) /OIF; Ovalocytes 1+ (5-14) /OIF; Tear Drop Cells 1+ (0-2) /OIF
[2023-08-22 08:08] LABS: Dohle Bodies PRESENT; Toxic Granulation PRESENT
[2023-08-22 08:09] LABS: Platelet Estimate DECREASED (NORMAL)
[2023-08-22 08:10] LABS: Large Platelet PRESENT; Platelet Morphology Comment NOTED
[2023-08-22 09:13] LABS: Platelet Count 118 X10*3/uL (160-400)
--- NOTE | 2023-08-22 09:40 | PM.CCPN ---
Subjective Subjective Date of Service: 08/22/23 Interval History: Continues to be on ventilator support this morning On Levophed for vasopressor support Worsening acute kidney injury Improving rhabdomyolysis, CPK down to 15,000 Critical Care Time (minutes): 45 Physical Exam Vital Signs: Vital Signs: Last Vital Signs Temp 98.1 F 08/22/23 09:00 Pulse 81 08/22/23 09:00 Resp 26 H 08/22/23 09:00 BP 120/71 08/22/23 09:00 Pulse Ox 93 08/22/23 09:00 O2 Del Method Mechanical Ventil ation 08/22/23 09:00 FiO2 45 08/22/23 09:00 BMI result Body Mass Index 29.4 General: acute distress, ill appearing and tired appearing Nutritional Appearance: well nourished and normal weight Eyes: appearance normal, both eyes and all related structures; Alignment and Position: alignment normal and position normal Neck: No lymphadenopathy, no thyromegaly Resp: bilateral air entry equal, occasional added sounds present in both lung bases Cardio: Regular rate, regular rhythm; Heart sounds: S1 normal heart sound present and S2 normal heart sound present GI: soft, nontender, no guarding, no hepatosplenomegaly : bladder normal to inspection, bladder normal to palpation, no renal angle tenderness Skin: no rashes or lesions noted and elasticity normal Neuro: Moves all extremities, no focal deficit, does not follow commands Objective Data Labs 08/22/23 05:20 08/22/23 05:20 Labs: Laboratory Results - last 24 hr 08/21/23 08/22/23 08/22/23 09:15 05:16 05:20 WBC 18.2 H RBC 2.76 L Hgb 7.9 L Hct 23.5 L MCV 85.1 MCH 28.6 MCHC 33.6 RDW 15.9 Plt Count 118 L MPV 10.9 Immature Gran % (Auto) Cancelled Neut % (Auto) Cancelled Lymph % (Auto) Cancelled [facility] % (Auto) Cancelled Eos % (Auto) Cancelled Baso % (Auto) Cancelled Lymph # (Auto) Cancelled [facility] # (Auto) Cancelled Eos # (Auto) Cancelled Baso # (Auto) Cancelled Abs Immat Gran (auto) Cancelled Absolute Neuts (auto) Cancelled Absolute Nucleated RBC 0.000 Nucleated RBC % (auto) 0.0 Neutrophils % (Manual) 67 Band Neutrophils % 28 H Lymphocytes % (Manual) 2 L Monocytes % (Manual) 2 Eosinophils % (Manual) 1 Abs Neuts (Manual) 17.3 H Lymphocytes # (Manual) 0.4 L Monocytes # (Manual) 0.4 Eosinophils # (Manual) 0.2 Toxic Granulation PRESENT Dohle Bodies PRESENT Platelet Estimate DECREASED Large Platelets PRESENT Plt Morphology Comment NOTED RBC Morphology NOTED Hypochromasia 1+ (5-14) Tear Drop Cells 1+ (0-2) Ovalocytes 1+ (5-14) VBG pH 7.41 VBG pCO2 41 VBG pO2 51 VBG HCO3 26 VBG O2 Saturation 80.0 VBG Base Excess 1.6 Sodium 141 Potassium 4.0 Chloride 103 Carbon Dioxide 21 L Anion Gap 21 H BUN 44 H Creatinine 5.36 H* Estim Creat Clear Calc 16.7 Estimated GFR 11 Random Glucose 131 H Calcium 7.4 L D Phosphorus 8.5 H Magnesium 2.2 Total Bilirubin 1.0 AST 326 H ALT 123 H Alkaline Phosphatase 69 Total Creatine Kinase 30849 H Total Protein 5.1 L Albumin 2.7 L Microbiology Microbiology Results: Microbiology 08/19/23 02:59 Blood - Venous Blood Culture - Preliminary Prelim: GPR Gram Stain only 08/20/23 16:53 Lung - Suctioned Gram Stain - Final 08/20/23 16:53 Lung - Suctioned Sputum Culture - Preliminary Culture in progress. 08/19/23 02:59 Blood - Venous Blood Culture - Preliminary No growth after 48 hours. 08/19/23 Unknown Urine Catheterized - Bess Catheter Urine Culture - Final No growth. Progress Note: A&P Assessment and plan (1) Aspiration pneumonia: Status: Acute (2) Acute hypoxemic respiratory failure: Status: Acute (3) NAOMI (acute kidney injury): Status: Acute (4) Rhabdomyolysis: Status: Acute (5) Multifocal pneumonia: Status: Acute Plan Mr. Jerson Taveras is a 53-year-old male with PMH of depression, GERD, dysphagia, BPH, bipolar, anemia, alcohol and opiate abuse, anxiety, GI bleed, achalasia s/p heller myotomy and balloon dilations was found unresponsive at home so EMS was called. Upon arrival of the EMS on Thursday was found to have pinpoint pupils with apneic breathing so was brought into the was intubated and placed on ventilator support, he is also found to be in shock needing Levophed support, acute kidney injury, rhabdomyolysis and a right-sided aspiration pneumonia for which MICU was consulted for admission. His NAOMI is worsening, rhabdomyolysis is improving. He received a large amount of fluids for the management of rhabdomyolysis and is significantly net fluid balance positive. Neuro: Acute encephalopathy possibly due to drug overdose CT head did not show any acute intracranial pathology UDS positive for cocaine, opiates and fentanyl not responding to Narcan pushes Currently on Precedex for anxiolysis, fentanyl for analgesia. Not following commands Close neurological status monitoring in the ICU Cardiac: Septic Shock: Possibly secondary to aspiration pneumonia On Levophed support, titrate Levophed to keep map above 65 mm Hg Respiratory: Acute hypoxemic respiratory failure due to aspiration pneumonia right more than left Currently on ventilator support increase in oxygen requirement overnight On PRVC mode FiO2 increased to 50 %, PEEP increased to 10, TV 400, RR decreased to 16; episodes of desaturation and tachypnea-not a candidate for extubation today Peak pressures and plateau pressures are under the curve Ventilator management bundle with head end elevation, aspiration precaution, chlorhexidine mouthwash, daily awakening trials, daily spontaneous breathing trials GI: Acute GI bleed: Hemoglobin stable, no further drop possibly due to stress ulcers Continue pantoprazole IV push BID low-dose tube feeds today Renal: Acute kidney injury possibly secondary to rhabdomyolysis Baseline creatinine normal, creatinine increased to 5.36 today. Electrolytes stable, urine output 1400 cc in past 24 hours no emergent indication for renal replacement therapy CPK trending down, urine looks more clear we will hope for the ATN to reach plateau phase soon IV fluids held as he was significantly net positive over 15 L as received a large volume of fluids for the management of rhabdomyolysis. Now on Lasix 80 mg t.i.d., we will add Diuril 500 b.i.d. We will closely monitor I's and O's Avoid nephrotoxic medications Rhabdomyolysis: Secondary to drug overdose, unknown downtime CPK more than 46,000, CPK trended down to 15,000 IV fluids stopped as patient is grossly volume overloaded and is significantly positive since admission, also increase in oxygen requirement on the ventilator Heme: Chronic anemia, closely monitor H&H, transfuse for hemoglobin less than 7 grams/deciliter Infectious disease: Aspiration pneumonia-pancultures negative so far Continue Zosyn for antibiotic coverage, MRSA nares negative We will stop Zosyn on day 5 Endocrine: Blood sugars under control Sliding scale insulin as needed Musculoskeletal: Decubitus ulcer prevention protocol Lines: Right IJ TLC Bess catheter Prophylaxis: Heparin, pantoprazole Quality Stroke Does the patient have a stroke diagnosis?: No VTE Prior VTE?: No VTE Risk Level:: Medical - low VTE Device Contraindication: N/A - Device Ordered VTE Drug Contraindication: N/A - Med Ordered
[2023-08-22] MEDS: Chlorothiazide Sodium 500 MG VIAL IVPUSH ×2 (09:55→20:16)
[2023-08-22] MEDS: Metoclopramide HCl 10 MG/2 ML VIAL IVPUSH ×2 (11:41→18:23)
[2023-08-22] MEDS: dexmedeTOMIDidine HCL/NS 400 MCG/100 ML INFUS..BTL 26.64 MCG IVCONT ×2 (19:56→23:47)
[2023-08-22] MEDS: Midazolam HCl/PF 2 MG/2 ML VIAL IVPUSH (20:11)
[2023-08-23] VITALS (38 sets, daily range): BP systolic 88–158; BP diastolic 50–86; PULSE 72–106; RESP 25–41; TEMP 34.8–37.2; O2SAT 90–95; BMI 28.4
[2023-08-23] MEDS: Furosemide 100 MG/10 ML VIAL 80 MG IVPUSH ×3 (01:33→16:48)
[2023-08-23] MEDS: Heparin Sodium,Porcine 5,000 UNIT/ML VIAL 5000 UNIT SUBCUT ×3 (02:59→18:14)
[2023-08-23] MEDS: Metoclopramide HCl 10 MG/2 ML VIAL IVPUSH ×3 (02:59→18:14)
[2023-08-23] MEDS: dexmedeTOMIDidine HCL/NS 400 MCG/100 ML INFUS..BTL 26.64 MCG IVCONT ×3 (03:30→23:03)
[2023-08-23] MEDS: Piperacillin Sodium/Tazobactam 3.375 GM in 0.9 % Sodium Chloride 50 ML IV ×4 (05:33→23:07)
[2023-08-23 05:34] LABS: VBG Base Excess 1.3 mmol/L; VBG HCO3 25 mmol/L (22-26); VBG pCO2 39 mmHg; VBG pH 7.42 (7.32-7.43); VBG pO2 52 mmHg
[2023-08-23] MEDS: Pantoprazole Sodium 40 MG/10 ML VIAL IVPUSH (05:34)
[2023-08-23 05:39] LABS: Venous Blood Gas Refer to POC result
[2023-08-23 06:46] LABS: MANUAL DIFF FLAG NO
[2023-08-23 07:02] LABS: Basophils Absolute Auto 0.1 X10*3/uL (0.0-0.2); Basophils Percent Auto 0.6 % (0-2); Eosinophils Absolute Auto 0.8 X10*3/uL (0.0-0.4); Eosinophils Percent Auto 5.3 % (0-4); Hematocrit 22.9 % (42.0-52.0); Hemoglobin 7.8 g/dl (14.0-18.0); Imm Gran Abs Auto 0.13 X10*3/uL (0.00-0.03); Imm Gran Pct Auto 0.9 % (0.0-0.4); Lymphocytes Absolute Auto 0.9 X10*3/uL (1.2-4.9); Lymphocytes Percent Auto 6.1 % (20-40); Mean Corpuscular HGB Conc 34.1 g/dl (31.0-36.0); Mean Corpuscular Hemoglobin 28.4 pg (27.0-33.0); Mean Corpuscular Volume 83.3 fL (80.0-98.0); Mean Platelet Volume 11.3 fL (9.4-12.4); Monocytes Percent Auto 6.5 % (2-11); Neutrophils Absolute Auto 12.2 x10*3/uL (2.0-8.3); Neutrophils Percent Auto 80.6 % (45-73); Platelet Count 125 X10*3/uL (160-400); Red Blood Count 2.75 X10*6/uL (4.60-5.80); White Blood Count 15.2 X10*3/uL (4.8-10.8)
[2023-08-23 07:12] LABS: Alanine Aminotransferase 107 U/L (0-40); Albumin Level 2.4 g/dL (3.5-5.0); Alkaline Phosphatase 99 U/L (39-117); Anion Gap 20 (12-20); Aspartate Amino Transferase 205 U/L (5-37); Blood Urea Nitrogen 55 mg/dL (9-16); Calcium 7.6 mg/dL (8.4-10.2); Carbon Dioxide 22 mmol/L (22-29); Chloride 103 mmol/L (96-108); Creatinine Clr Calc Pharmacy 14.1; Estimated Glomerular Filt Rate 9; Glucose Random 112 mg/dL (60-115); Potassium 3.6 mmol/L (3.3-5.1); Sodium 141 mmol/L (135-145); Total Protein 5.1 g/dL (6.5-8.0)
[2023-08-23] MEDS: fentaNYL citrate/NS 1,000 MCG/100 ML PLAST..BAG 12.5 MCG IVCONT (07:54)
[2023-08-23] MEDS: Chlorothiazide Sodium 500 MG VIAL IVPUSH ×2 (09:49→20:34)
[2023-08-23] MEDS: dexmedeTOMIDidine HCL/NS 400 MCG/100 ML INFUS..BTL 31.08 MCG IVCONT ×4 (10:05→20:00)
--- NOTE | 2023-08-23 11:02 | PM.CCPN ---
Subjective Subjective Date of Service: 08/23/23 Interval History: Continues to be on ventilator support this morning, upon sedation weaning he becomes tachypneic and desaturates. On fentanyl and Precedex for analgesia and anxiolysis Good urine output about 1900 cc in past 24 hours, however creatinine continues to rise. CPK trending down to 8000 Critical Care Time (minutes): 40 Physical Exam Vital Signs: Vital Signs: Last Vital Signs Temp 98.2 F 08/23/23 10:00 Pulse 78 08/23/23 10:00 Resp 30 H 08/23/23 10:00 BP 120/74 08/23/23 10:00 Pulse Ox 90 L 08/23/23 10:00 O2 Del Method Mechanical Ventil ation 08/23/23 10:00 FiO2 40 08/23/23 10:00 BMI result Body Mass Index 28.4 General: acute distress, tired appearing Nutritional Appearance: well nourished and normal weight Eyes: appearance normal, both eyes and all related structures; Alignment and Position: alignment normal and position normal Neck: No lymphadenopathy, no thyromegaly Resp: bilateral air entry equal, occasional added sounds present right more than left Cardio: Regular rate, regular rhythm; Heart sounds: S1 normal heart sound present and S2 normal heart sound present GI: soft, nontender, no guarding, no hepatosplenomegaly : bladder normal to inspection, bladder normal to palpation, no renal angle tenderness Skin: no rashes or lesions noted and elasticity normal Neuro: oriented to person, oriented to place, oriented to time and moves all extremities Objective Data Labs 08/23/23 05:31 08/23/23 05:31 Labs: Laboratory Results - last 24 hr 08/23/23 08/23/23 05:25 05:31 WBC 15.2 H RBC 2.75 L Hgb 7.8 L Hct 22.9 L MCV 83.3 MCH 28.4 MCHC 34.1 RDW 16.0 Plt Count 125 L MPV 11.3 Immature Gran % (Auto) 0.9 H Neut % (Auto) 80.6 H Lymph % (Auto) 6.1 L [place] % (Auto) 6.5 Eos % (Auto) 5.3 H Baso % (Auto) 0.6 Lymph # (Auto) 0.9 L [place] # (Auto) 1.0 Eos # (Auto) 0.8 H Baso # (Auto) 0.1 Abs Immat Gran (auto) 0.13 H Absolute Neuts (auto) 12.2 H Absolute Nucleated RBC 0.000 Nucleated RBC % (auto) 0.0 VBG pH 7.42 VBG pCO2 39 VBG pO2 52 VBG HCO3 25 VBG O2 Saturation 82.0 VBG Base Excess 1.3 Sodium 141 Potassium 3.6 Chloride 103 Carbon Dioxide 22 Anion Gap 20 BUN 55 H Creatinine 6.25 H* Estim Creat Clear Calc 14.1 Estimated GFR 9 Random Glucose 112 Calcium 7.6 L Total Bilirubin 1.0 AST 205 H ALT 107 H Alkaline Phosphatase 99 Total Protein 5.1 L Albumin 2.4 L Microbiology Microbiology Results: Microbiology 08/19/23 02:59 Blood - Venous Blood Culture - Preliminary Prelim: GPR Gram Stain only 08/19/23 02:59 Blood - Venous Blood Culture - Preliminary Prelim: GPR Gram Stain only 08/20/23 16:53 Lung - Suctioned Gram Stain - Final 08/20/23 16:53 Lung - Suctioned Sputum Culture - Preliminary Yeast 08/19/23 Unknown Urine Catheterized - Bess Catheter Urine Culture - Final No growth. Progress Note: A&P Assessment and plan (1) Aspiration pneumonia: Status: Acute (2) Acute hypoxemic respiratory failure: Status: Acute (3) NAOMI (acute kidney injury): Status: Acute (4) Rhabdomyolysis: Status: Acute (5) Multifocal pneumonia: Status: Acute (6) Overdose: Status: Acute Plan Mr. Jerson Taveras is a 53-year-old male with PMH of depression, GERD, dysphagia, BPH, bipolar, anemia, alcohol and opiate abuse, anxiety, GI bleed, achalasia s/p heller myotomy and balloon dilations was found unresponsive at home so EMS was called. Upon arrival of the EMS on Thursday was found to have pinpoint pupils with apneic breathing so was brought into the was intubated and placed on ventilator support, he is also found to be in shock needing Levophed support, acute kidney injury, rhabdomyolysis and a right-sided aspiration pneumonia for which MICU was consulted for admission. His NAOMI is worsening, rhabdomyolysis is improving. He received a large amount of fluids for the management of rhabdomyolysis and is significantly net fluid balance positive. Neuro: Acute encephalopathy possibly due to drug overdose CT head did not show any acute intracranial pathology UDS positive for cocaine, opiates and fentanyl not responding to Narcan pushes Currently on Precedex for anxiolysis, fentanyl for analgesia. Not following commands will add seroquel 50mg BID and clonazepam 0.5mg BID to wean off sedation and possibly patient might be withdrawing Close neurological status monitoring in the ICU Cardiac: Septic Shock: Possibly secondary to aspiration pneumonia On Levophed support, titrate Levophed to keep map above 65 mm Hg Respiratory: Acute hypoxemic respiratory failure due to aspiration pneumonia right more than left Currently on ventilator support increase in oxygen requirement overnight On PRVC mode FiO2 increased to 50 %, PEEP increased to 10, TV 400, RR decreased to 16; episodes of desaturation and tachypnea-not a candidate for extubation today Peak pressures and plateau pressures are under the curve Ventilator management bundle with head end elevation, aspiration precaution, chlorhexidine mouthwash, daily awakening trials, daily spontaneous breathing trials GI: Acute GI bleed: Hemoglobin stable, no further drop possibly due to stress ulcers Continue pantoprazole IV push BID Tube feeds started Renal: Acute kidney injury possibly secondary to rhabdomyolysis Baseline creatinine normal, creatinine increased to 6.25 today. Electrolytes stable, urine output 1900 cc in past 24 hours no emergent indication for renal replacement therapy CPK trending down, urine looks more clear we will hope for the ATN to reach plateau phase soon before starting trending down IV fluids held as he was significantly net positive over 17 L as received a large volume of fluids for the management of rhabdomyolysis. Continue Lasix 80 mg t.i.d., and Diuril 500 b.i.d. We will closely monitor I's and O's Avoid nephrotoxic medications Rhabdomyolysis: Secondary to drug overdose, unknown downtime CPK more than 46,000, CPK trended down to 8,000 IV fluids stopped as patient is grossly volume overloaded and is significantly positive since admission, also increase in oxygen requirement on the ventilator Heme: Chronic anemia, closely monitor H&H, transfuse for hemoglobin less than 7 grams/deciliter Infectious disease: Aspiration pneumonia Blood cultures positive for Gram-negative rods, final speciation and sensitivities pending Continue Zosyn for antibiotic coverage, MRSA nares negative Endocrine: Blood sugars under control Sliding scale insulin as needed Musculoskeletal: Decubitus ulcer prevention protocol Lines: Right IJ TLC Bess catheter Prophylaxis: Heparin, pantoprazole Quality Stroke Does the patient have a stroke diagnosis?: No VTE Prior VTE?: No VTE Risk Level:: Medical - low VTE Device Contraindication: N/A - Device Ordered VTE Drug Contraindication: N/A - Med Ordered
[2023-08-23] MEDS: clonazePAM 0.5 MG TABLET PO ×2 (12:09→20:34)
[2023-08-23] MEDS: oxyCODONE HCl Immed Release 5 MG TABLET 10 MG PO ×2 (12:09→20:33)
[2023-08-23] MEDS: QUEtiapine Fumarate 50 MG TABLET PO ×2 (12:10→20:34)
[2023-08-23] MEDS: fentaNYL citrate/NS 1,000 MCG/100 ML PLAST..BAG 5 MCG IVCONT (16:51)
[2023-08-23] MEDS: Norepinephrine Bitartrate/D5W 8 MG/250 ML PLAST..BAG 6.97 MG IV (18:49)
[2023-08-24] VITALS (41 sets, daily range): BP systolic 90–144; BP diastolic 46–81; PULSE 78–106; RESP 15–44; TEMP 35–38.6; O2SAT 92–97; BMI 28.3
[2023-08-24] MEDS: Furosemide 100 MG/10 ML VIAL 80 MG IVPUSH (00:41)
[2023-08-24] MEDS: dexmedeTOMIDidine HCL/NS 400 MCG/100 ML INFUS..BTL 26.64 MCG IVCONT ×4 (02:25→16:35)
[2023-08-24] MEDS: Heparin Sodium,Porcine 5,000 UNIT/ML VIAL 5000 UNIT SUBCUT ×3 (02:27→18:00)
[2023-08-24] MEDS: Metoclopramide HCl 10 MG/2 ML VIAL IVPUSH ×3 (02:28→18:00)
[2023-08-24] MEDS: oxyCODONE HCl Immed Release 5 MG TABLET 10 MG PO (02:28)
[2023-08-24] MEDS: Midazolam HCl/PF 2 MG/2 ML VIAL IVPUSH ×4 (02:29→23:43)
[2023-08-24 05:22] LABS: VBG Base Excess -0.5 mmol/L; VBG HCO3 24 mmol/L (22-26); VBG pCO2 38 mmHg; VBG pO2 49 mmHg
[2023-08-24] MEDS: dexmedeTOMIDidine HCL/NS 400 MCG/100 ML INFUS..BTL 31.08 MCG IVCONT ×3 (05:25→22:40)
[2023-08-24 05:27] LABS: Venous Blood Gas Refer to POC result
[2023-08-24] MEDS: Piperacillin Sodium/Tazobactam 3.375 GM in 0.9 % Sodium Chloride 50 ML IV (05:28)
[2023-08-24 05:50] LABS: Basophils Absolute Auto 0.1 X10*3/uL (0.0-0.2); Basophils Percent Auto 0.7 % (0-2); Eosinophils Absolute Auto 1.2 X10*3/uL (0.0-0.4); Hematocrit 22.2 % (42.0-52.0); Hemoglobin 7.7 g/dl (14.0-18.0); Imm Gran Abs Auto 0.45 X10*3/uL (0.00-0.03); Imm Gran Pct Auto 2.9 % (0.0-0.4); Lymphocytes Absolute Auto 1.3 X10*3/uL (1.2-4.9); Lymphocytes Percent Auto 8.3 % (20-40); MANUAL DIFF FLAG NO; Mean Corpuscular HGB Conc 34.7 g/dl (31.0-36.0); Mean Corpuscular Hemoglobin 28.2 pg (27.0-33.0); Mean Corpuscular Volume 81.3 fL (80.0-98.0); Mean Platelet Volume 10.6 fL (9.4-12.4); Monocytes Absolute Auto 1.1 X10*3/uL (0.1-1.2); Neutrophils Absolute Auto 11.2 x10*3/uL (2.0-8.3); Neutrophils Percent Auto 73.1 % (45-73); Platelet Count 158 X10*3/uL (160-400); Red Blood Count 2.73 X10*6/uL (4.60-5.80); White Blood Count 15.4 X10*3/uL (4.8-10.8)
[2023-08-24 06:09] LABS: Alanine Aminotransferase 94 U/L (0-40); Albumin Level 2.3 g/dL (3.5-5.0); Alkaline Phosphatase 118 U/L (39-117); Anion Gap 23 (12-20); Aspartate Amino Transferase 140 U/L (5-37); Bilirubin Total 1.3 mg/dL (0.0-1.0); Blood Urea Nitrogen 67 mg/dL (9-16); Calcium 7.6 mg/dL (8.4-10.2); Carbon Dioxide 21 mmol/L (22-29); Chloride 103 mmol/L (96-108); Creatinine Clr Calc Pharmacy 11.7; Estimated Glomerular Filt Rate 8; Glucose Random 112 mg/dL (60-115); Magnesium 2.2 mg/dL (1.6-2.6); Phosphorus 6.3 mg/dL (2.7-4.5); Potassium 3.4 mmol/L (3.3-5.1); Sodium 144 mmol/L (135-145); Total Protein 5.2 g/dL (6.5-8.0)
[2023-08-24] MEDS: Albumin Human 25 % 100 ML IV ×3 (08:46→19:29)
[2023-08-24] MEDS: QUEtiapine Fumarate 50 MG TABLET PO ×2 (08:46→21:15)
[2023-08-24] MEDS: fentaNYL citrate/NS 1,000 MCG/100 ML PLAST..BAG 5 MCG IVCONT (09:28)
--- NOTE | 2023-08-24 11:11 | MHC.CLN ---
F/U PT IS INTUBATED AND SEDATED DISCUSSED AT ROUNDS WITH PT RECEIVING PROMOTE AT 30ML/HR AND TITRATING TO GOAL TODAY PER NSG RECOMMEND PROMOTE AT MAX GOAL RATE 75ML/HR TO PROVIDE 1800KCALS (2153KCALS WITH SEDATION; 26KCALS/KG), 112G PROTEIN (1.4G/KG), 1510ML FREE WATER HOLD FREE WATER FLUSHES AT THIS TIME MONITOR TOLERANCE AND LYTES
--- NOTE | 2023-08-24 12:18 | P.PNCC_ITS ---
Subjective Subjective Date of Service: 08/24/23 Interval History: 53-year-old gentleman with underlying history of polysubstance abuse, schizoaffective disorder, achalasia status post myotomy admitted on 08/19/2023 with unresponsiveness on the background of polysubstance abuse and rhabdomyolysis with acute kidney failure requiring intubation and ventilatory support. Hospital course also complicated by septic shock and acute hypoxic respiratory failure secondary to pulmonary edema. No events overnight. Critical Care Time (minutes): 60 Physical Exam 2 Vital Signs: Vital Signs: Last Vital Signs Temp 98.4 F 08/24/23 11:00 Pulse 91 08/24/23 11:00 Resp 26 H 08/24/23 11:00 BP 117/69 08/24/23 11:00 Pulse Ox 92 08/24/23 11:00 O2 Del Method Mechanical Ventil ation 08/24/23 11:00 FiO2 40 08/24/23 11:42 BMI result Body Mass Index 28.3 Const: General: no acute distress and other (Sedated on the vent) Eyes: Sclerae: sclerae normal EOM: EOMs intact bilaterally Neck: Neck: Yes no lymphadenopathy, Yes trachea midline and Yes supple Resp: Auscultation: crackles (Diffuse bilateral) Cardio: Rate: regular rate Rhythm: regular rhythm Heart sounds: no gallops, no murmurs and no rubs GI: Palpation (GI): Soft to palpation and Other GI palpation findings present ( Nontender) Auscultation: normal bowel sounds Extrem: General: No clubbing, No cyanosis and Yes edema (1+ bilateral) Objective Data Labs 08/24/23 05:17 08/24/23 05:17 Labs: Laboratory Results - last 24 hr 08/24/23 08/24/23 05:15 05:17 WBC 15.4 H RBC 2.73 L Hgb 7.7 L Hct 22.2 L MCV 81.3 MCH 28.2 MCHC 34.7 RDW 16.0 Plt Count 158 L D MPV 10.6 Immature Gran % (Auto) 2.9 H Neut % (Auto) 73.1 H Lymph % (Auto) 8.3 L [place] % (Auto) 7.0 Eos % (Auto) 8.0 H Baso % (Auto) 0.7 Lymph # (Auto) 1.3 [place] # (Auto) 1.1 Eos # (Auto) 1.2 H Baso # (Auto) 0.1 Abs Immat Gran (auto) 0.45 H Absolute Neuts (auto) 11.2 H Absolute Nucleated RBC 0.000 Nucleated RBC % (auto) 0.0 VBG pH 7.40 VBG pCO2 38 VBG pO2 49 VBG HCO3 24 VBG O2 Saturation 78.0 VBG Base Excess -0.5 Sodium 144 Potassium 3.4 Chloride 103 Carbon Dioxide 21 L Anion Gap 23 H BUN 67 H Creatinine 7.51 H* Estim Creat Clear Calc 11.7 Estimated GFR 8 Random Glucose 112 Calcium 7.6 L Phosphorus 6.3 H Magnesium 2.2 Total Bilirubin 1.3 H AST 140 H ALT 94 H Alkaline Phosphatase 118 H Total Protein 5.2 L Albumin 2.3 L Microbiology Microbiology Results: Microbiology 08/20/23 16:53 Lung - Suctioned Gram Stain - Final 08/20/23 16:53 Lung - Suctioned Sputum Culture - Final Stefanie albicans Stefanie dubliniensis 08/19/23 02:59 Blood - Venous Blood Culture - Final Propionibacterium acnes 08/19/23 02:59 Blood - Venous Blood Culture - Final Propionibacterium acnes 08/19/23 Unknown Urine Catheterized - Bess Catheter Urine Culture - Final No growth. Progress Note: A&P Assessment and plan (1) Aspiration pneumonia: Status: Acute (2) Acute hypoxemic respiratory failure: Status: Acute (3) NAOMI (acute kidney injury): Status: Acute (4) Rhabdomyolysis: Status: Acute (5) Polysubstance abuse: Status: Acute Plan Assessment: 53-year-old male admitted with encephalopathy and rhabdomyolysis with NAOMI secondary to polysubstance abuse further complicated by pulmonary aspiration and shock requiring ventilatory support Plan: Neuro: Encephalopathy, likely secondary to polysubstance abuse. Cardiac: Septic shock on the background of pulmonary aspiration/pneumonitis, continue to titrate off pressor support as tolerated. Pulmonary: Acute hypoxic respiratory failure on the background pulmonary aspiration and pulmonary edema from rhabdomyolysis. Continue to titrate off ventilatory support as tolerated. Renal: Acute renal failure secondary to rhabdomyolysis. Non oliguric. Continue to monitor renal indices and urine output. Endo: No acute issues. GI: No acute issues. ID: Empiric coverage for pulmonary aspiration. Heme/Onc: No acute issues. Psych: No acute issues. Underlying schizoaffective disorder. Miscellaneous: No acute issues. Prophylaxis: Heparin, ppi Diet: Tube feeds Critical care time spent: 60 minutes Quality Stroke Does the patient have a stroke diagnosis?: No VTE Prior VTE?: No VTE Risk Level:: Medical - low VTE Device Contraindication: N/A - Device Ordered VTE Drug Contraindication: N/A - Med Ordered
[2023-08-24] MEDS: Piperacillin Sodium/Tazobactam 2.25 GM in 0.9 % Sodium Chloride 50 ML IV ×2 (13:02→21:15)
--- NOTE | 2023-08-24 14:45 | MHC.CM.PN ---
Pt remains intubated in ICU : failed several sedation vacation attempts and continues on Levophed. He is +17 liters with worsening renal functioning. No plans to extubate today: CM to follow as d/c plans are not yet known.
[2023-08-24] MEDS: Norepinephrine Bitartrate/D5W 8 MG/250 ML PLAST..BAG 6.97 MG IV (16:38)
[2023-08-25] VITALS (37 sets, daily range): BP systolic 93–151; BP diastolic 39–93; PULSE 78–116; RESP 18–38; TEMP 35.1–38.5; O2SAT 91–98; BMI 28.2
[2023-08-25] MEDS: fentaNYL citrate/NS 1,000 MCG/100 ML PLAST..BAG 7.5 MCG IVCONT (01:05)
[2023-08-25] MEDS: dexmedeTOMIDidine HCL/NS 400 MCG/100 ML INFUS..BTL 31.08 MCG IVCONT ×2 (01:48→04:49)
[2023-08-25] MEDS: Heparin Sodium,Porcine 5,000 UNIT/ML VIAL 5000 UNIT SUBCUT ×3 (03:25→18:01)
[2023-08-25] MEDS: Albumin Human 25 % 100 ML IV (03:25)
[2023-08-25] MEDS: Metoclopramide HCl 10 MG/2 ML VIAL IVPUSH ×3 (03:25→18:01)
[2023-08-25] MEDS: Midazolam HCl/PF 2 MG/2 ML VIAL IVPUSH ×4 (03:31→19:44)
[2023-08-25] MEDS: Piperacillin Sodium/Tazobactam 2.25 GM in 0.9 % Sodium Chloride 50 ML IV ×3 (05:36→21:31)
[2023-08-25] MEDS: Omeprazole/Na Bicarb Oral Susp 20 MG/10 ML UD Cup 40 MG PO (05:37)
[2023-08-25 05:40] LABS: VBG Base Excess 0.5 mmol/L; VBG HCO3 23 mmol/L (22-26); VBG pCO2 33 mmHg; VBG pH 7.46 (7.32-7.43); VBG pO2 52 mmHg
[2023-08-25 05:46] LABS: MANUAL DIFF FLAG NO
[2023-08-25 05:47] LABS: Basophils Absolute Auto 0.1 X10*3/uL (0.0-0.2); Basophils Percent Auto 0.4 % (0-2); Eosinophils Absolute Auto 1.4 X10*3/uL (0.0-0.4); Eosinophils Percent Auto 10.4 % (0-4); Imm Gran Abs Auto 0.38 X10*3/uL (0.00-0.03); Imm Gran Pct Auto 2.8 % (0.0-0.4); Lymphocytes Absolute Auto 1.6 X10*3/uL (1.2-4.9); Lymphocytes Percent Auto 11.9 % (20-40); Mean Corpuscular HGB Conc 34.8 g/dl (31.0-36.0); Mean Corpuscular Hemoglobin 27.7 pg (27.0-33.0); Mean Corpuscular Volume 79.5 fL (80.0-98.0); Mean Platelet Volume 11.3 fL (9.4-12.4); Monocytes Absolute Auto 0.8 X10*3/uL (0.1-1.2); Monocytes Percent Auto 6.2 % (2-11); Neutrophils Absolute Auto 9.3 x10*3/uL (2.0-8.3); Neutrophils Percent Auto 68.3 % (45-73); Platelet Count 139 X10*3/uL (160-400); Red Blood Count 2.24 X10*6/uL (4.60-5.80); Red Cell Distribution Width 16.1 % (11.0-16.0); White Blood Count 13.6 X10*3/uL (4.8-10.8)
[2023-08-25 05:50] LABS: Hematocrit 17.8 % (42.0-52.0); Hemoglobin 6.2 g/dl (14.0-18.0)
[2023-08-25 06:08] LABS: Anion Gap 26 (12-20); Blood Urea Nitrogen 80 mg/dL (9-16); Carbon Dioxide 19 mmol/L (22-29); Chloride 104 mmol/L (96-108); Creatinine Clr Calc Pharmacy 10.5; Estimated Glomerular Filt Rate 7; Glucose Random 161 mg/dL (60-115); Magnesium 2.3 mg/dL (1.6-2.6); Phosphorus 5.4 mg/dL (2.7-4.5); Potassium 3.6 mmol/L (3.3-5.1); Sodium 145 mmol/L (135-145)
[2023-08-25 06:18] LABS: Venous Blood Gas Refer to POC result
[2023-08-25] MEDS: dexmedeTOMIDidine HCL/NS 400 MCG/100 ML INFUS..BTL 33.3 MCG IVCONT (07:34)
[2023-08-25] MEDS: propofoL 1,000 MG/100 ML VIAL 15.12 MG IVCONT (08:30)
[2023-08-25] MEDS: QUEtiapine Fumarate 50 MG TABLET PO ×2 (08:37→20:19)
[2023-08-25] MEDS: Chlorhexidine Gluc Oral Rinse 15 ML MOUTHWASH BUCCAL ×3 (09:25→20:19)
--- NOTE | 2023-08-25 10:06 | PM.CCPN ---
Subjective Subjective Date of Service: 08/25/23 Interval History: 53-year-old gentleman with underlying history of polysubstance abuse, schizoaffective disorder, achalasia status post myotomy admitted on 08/19/2023 with unresponsiveness on the background of polysubstance abuse and rhabdomyolysis with acute kidney failure requiring intubation and ventilatory support. Hospital course also complicated by septic shock and acute hypoxic respiratory failure secondary to pulmonary edema. No events overnight. Creatinine is worsening, but phosphorus is improving. Critical Care Time (minutes): 60 Physical Exam Vital Signs: Vital Signs: Last Vital Signs Temp 99.9 F 08/25/23 09:00 Pulse 85 08/25/23 09:25 Resp 28 H 08/25/23 09:00 BP 127/68 08/25/23 09:25 Pulse Ox 92 08/25/23 09:00 O2 Del Method Mechanical Ventil ation 08/25/23 09:00 FiO2 40 08/25/23 09:00 BMI result Body Mass Index 28.2 Const: General: no acute distress and other (Sedated on the vent) Eyes: Sclerae: sclerae normal EOM: EOMs intact bilaterally Neck: Neck: Yes no lymphadenopathy, Yes trachea midline and Yes supple Resp: Effort & Inspection: normal respiratory effort and no respiratory distress Auscultation: clear to auscultation bilaterally Cardio: Rate: regular rate Rhythm: regular rhythm Heart sounds: no gallops, no murmurs and no rubs GI: Palpation (GI): Soft to palpation and Other GI palpation findings present ( Nontender) Auscultation: normal bowel sounds Extrem: General: No clubbing, No cyanosis and Yes edema (2+ bilateral) Objective Data Labs 08/25/23 05:25 08/25/23 05:25 Labs: Laboratory Results - last 24 hr 08/25/23 08/25/23 08/25/23 05:25 05:32 06:57 WBC 13.6 H RBC 2.24 L Hgb 6.2 L* Hct 17.8 L* MCV 79.5 L MCH 27.7 MCHC 34.8 RDW 16.1 H Plt Count 139 L MPV 11.3 Immature Gran % (Auto) 2.8 H Neut % (Auto) 68.3 Lymph % (Auto) 11.9 L [place] % (Auto) 6.2 Eos % (Auto) 10.4 H Baso % (Auto) 0.4 Lymph # (Auto) 1.6 [place] # (Auto) 0.8 Eos # (Auto) 1.4 H Baso # (Auto) 0.1 Abs Immat Gran (auto) 0.38 H Absolute Neuts (auto) 9.3 H Absolute Nucleated RBC 0.000 Nucleated RBC % (auto) 0.0 VBG pH 7.46 H VBG pCO2 33 VBG pO2 52 VBG HCO3 23 VBG O2 Saturation 83.0 VBG Base Excess 0.5 Sodium 145 Potassium 3.6 Chloride 104 Carbon Dioxide 19 L Anion Gap 26 H BUN 80 H Creatinine 8.38 H* Estim Creat Clear Calc 10.5 Estimated GFR 7 Random Glucose 161 H Calcium 8.0 L Phosphorus 5.4 H Magnesium 2.3 Albumin 3.0 L Blood Type O Positive Antibody Screen NEGATIVE Crossmatch See Detail Microbiology Microbiology Results: Microbiology 08/20/23 16:53 Lung - Suctioned Gram Stain - Final 08/20/23 16:53 Lung - Suctioned Sputum Culture - Final Stefanie albicans Stefanie dubliniensis 08/19/23 02:59 Blood - Venous Blood Culture - Final Propionibacterium acnes 08/19/23 02:59 Blood - Venous Blood Culture - Final Propionibacterium acnes 08/19/23 Unknown Urine Catheterized - Bess Catheter Urine Culture - Final No growth. Progress Note: A&P Assessment and plan (1) Polysubstance abuse: Status: Acute (2) Aspiration pneumonia: Status: Acute (3) Acute hypoxemic respiratory failure: Status: Acute (4) NAOMI (acute kidney injury): Status: Acute (5) Rhabdomyolysis: Status: Acute (6) Schizoaffective disorder: Status: Acute Plan Assessment: 53-year-old male admitted with encephalopathy and rhabdomyolysis with NAOMI secondary to polysubstance abuse further complicated by pulmonary aspiration and shock requiring ventilatory support Plan: Neuro: Encephalopathy, likely secondary to polysubstance abuse. Cardiac: Septic shock on the background of pulmonary aspiration/pneumonitis, continue to titrate off pressor support as tolerated. Pulmonary: Acute hypoxic respiratory failure on the background pulmonary aspiration and pulmonary edema from rhabdomyolysis. Continue to titrate off ventilatory support as tolerated. Renal: Acute renal failure secondary to rhabdomyolysis. Non oliguric. Continue to monitor renal indices and urine output. Endo: No acute issues. GI: No acute issues. ID: Empiric coverage for pulmonary aspiration. Heme/Onc: Subacute blood-loss anemia secondary to phlebotomy. Will transfuse 1 unit of packed red blood cells. Psych: No acute issues. Underlying schizoaffective disorder. Miscellaneous: No acute issues. Prophylaxis: Heparin, ppi Diet: Tube feeds Critical care time spent: 60 minutes Quality Stroke Does the patient have a stroke diagnosis?: No VTE Prior VTE?: No VTE Risk Level:: Medical - low VTE Device Contraindication: N/A - Device Ordered VTE Drug Contraindication: N/A - Med Ordered
[2023-08-25] MEDS: dexmedeTOMIDidine HCL/NS 400 MCG/100 ML INFUS..BTL 15.54 MCG IVCONT (11:05)
[2023-08-25] MEDS: propofoL 1,000 MG/100 ML VIAL 25.2 MG IVCONT ×4 (11:29→22:50)
[2023-08-25] MEDS: fentaNYL citrate/NS 1,000 MCG/100 ML PLAST..BAG 10 MCG IVCONT (12:16)
[2023-08-25] MEDS: dexmedeTOMIDidine HCL/NS 400 MCG/100 ML INFUS..BTL 11.1 MCG IVCONT (21:09)
[2023-08-25] MEDS: fentaNYL citrate/NS 1,000 MCG/100 ML PLAST..BAG 12.5 MCG IVCONT (21:25)
[2023-08-26] VITALS (34 sets, daily range): BP systolic 93–128; BP diastolic 49–68; PULSE 78–107; RESP 26–36; TEMP 34.7–38.3; O2SAT 90–97; BMI 28.9
[2023-08-26] MEDS: propofoL 1,000 MG/100 ML VIAL 25.2 MG IVCONT ×6 (02:01→20:21)
[2023-08-26] MEDS: Metoclopramide HCl 10 MG/2 ML VIAL IVPUSH ×3 (03:36→18:04)
[2023-08-26] MEDS: Heparin Sodium,Porcine 5,000 UNIT/ML VIAL 5000 UNIT SUBCUT ×3 (03:36→18:04)
[2023-08-26] MEDS: Norepinephrine Bitartrate/D5W 8 MG/250 ML PLAST..BAG 2.79 MG IV (04:49)
[2023-08-26] MEDS: Piperacillin Sodium/Tazobactam 2.25 GM in 0.9 % Sodium Chloride 50 ML IV ×3 (05:37→21:43)
[2023-08-26] MEDS: Omeprazole/Na Bicarb Oral Susp 20 MG/10 ML UD Cup 40 MG PO (05:38)
[2023-08-26 05:49] LABS: VBG HCO3 25 mmol/L (22-26); VBG pCO2 35 mmHg; VBG pH 7.44 (7.32-7.43); VBG pO2 50 mmHg
[2023-08-26] MEDS: dexmedeTOMIDidine HCL/NS 400 MCG/100 ML INFUS..BTL 11.1 MCG IVCONT ×3 (05:51→22:25)
[2023-08-26 05:53] LABS: MANUAL DIFF FLAG NO
[2023-08-26 05:54] LABS: Basophils Absolute Auto 0.1 X10*3/uL (0.0-0.2); Basophils Percent Auto 0.4 % (0-2); Eosinophils Absolute Auto 1.6 X10*3/uL (0.0-0.4); Eosinophils Percent Auto 9.3 % (0-4); Hemoglobin 7.2 g/dl (14.0-18.0); Imm Gran Abs Auto 0.79 X10*3/uL (0.00-0.03); Imm Gran Pct Auto 4.7 % (0.0-0.4); Lymphocytes Absolute Auto 2.2 X10*3/uL (1.2-4.9); Mean Corpuscular HGB Conc 35.8 g/dl (31.0-36.0); Mean Corpuscular Hemoglobin 28.7 pg (27.0-33.0); Mean Corpuscular Volume 80.1 fL (80.0-98.0); Mean Platelet Volume 11.6 fL (9.4-12.4); Monocytes Absolute Auto 0.9 X10*3/uL (0.1-1.2); Monocytes Percent Auto 5.2 % (2-11); NRBC Pct Auto 0.1 /100WBC (0.0-0.2); Neutrophils Absolute Auto 11.2 x10*3/uL (2.0-8.3); Neutrophils Percent Auto 67.4 % (45-73); Platelet Count 145 X10*3/uL (160-400); Red Blood Count 2.51 X10*6/uL (4.60-5.80); White Blood Count 16.7 X10*3/uL (4.8-10.8)
[2023-08-26 05:56] LABS: Venous Blood Gas Refer to POC result
[2023-08-26 06:04] LABS: Hematocrit 20.1 % (42.0-52.0)
[2023-08-26 06:22] LABS: Albumin Level 2.5 g/dL (3.5-5.0); Anion Gap 21 (12-20); Blood Urea Nitrogen 90 mg/dL (9-16); Carbon Dioxide 22 mmol/L (22-29); Chloride 103 mmol/L (96-108); Creatinine Clr Calc Pharmacy 10.5; Estimated Glomerular Filt Rate 7; Glucose Random 138 mg/dL (60-115); Magnesium 2.3 mg/dL (1.6-2.6); Phosphorus 4.6 mg/dL (2.7-4.5); Potassium 3.8 mmol/L (3.3-5.1); Sodium 142 mmol/L (135-145)
[2023-08-26] MEDS: fentaNYL citrate/NS 1,000 MCG/100 ML PLAST..BAG 10 MCG IVCONT ×3 (06:43→21:06)
[2023-08-26] MEDS: Albumin Human 25 % 100 ML IV ×4 (08:05→10:15)
[2023-08-26] MEDS: QUEtiapine Fumarate 50 MG TABLET PO ×2 (08:09→20:31)
[2023-08-26] MEDS: Chlorhexidine Gluc Oral Rinse 15 ML MOUTHWASH BUCCAL ×3 (08:09→20:31)
[2023-08-26] MEDS: Midazolam HCl/PF 2 MG/2 ML VIAL IVPUSH (08:14)
--- NOTE | 2023-08-26 08:37 | P.CDIM_ITS ---
PROVIDER RESPONSE TEXT: To clarify, the appropriate diagnosis supported by the clinical indicators: Acute QUERY TEXT: PHYSICIAN'S DOCUMENTATION REQUEST Date of Query: 08/26/2023 08:16 AM EDT Patient Name: Jerson Taveras Admit Date: 08/19/2023 Dear Narciso Pittman MD, A review of the medical record indicates additional documentation may be needed. Please review below and update the documentation accordingly. Clinical Indicators: ICU Progress note 08/23 & 08/24 - Acute hypoxic respiratory failure on the background pulmonary aspirat ion and pulmonary edema from rhabdomyolysis. Continue to titrate off ventilatory support as tolerated. Clarify which of the following accurately represents the acuity of the Pulmonary edema: Possible options might include: Acute Acute on chronic Other (explain) Clinically unable to determine (explain) Thank you, Mirta Feliciano, CCS, CDIS Use of terms such as suspected, likely, concern for, or probable (associated with a specific diagnosi s that is being evaluated, monitored, or treated as if it exists) are acceptable and can be coded in the inpatient se tting, when documented at the time of discharge. Please use your independent medical judgment in providing your response. THIS QUERY IS PART OF THE PERMANENT MEDICAL RECORD
--- NOTE | 2023-08-26 11:08 | MHC.CLN ---
F/U PT IS INTUBATED AND SEDATED DISCUSSED AT ROUNDS WITH MD NOTED RENAL FUNCTION AND FLUID OVERLOAD PT RECEIVING PROMOTE AT MAX GOAL RATE 75ML/HR PROVIDES 1800KCALS (2465KCALS WITH SEDATION; 30KCALS/KG), 112G PROTEIN (1.4G/KG), 1510ML FREE WATER HOLD FREE WATER FLUSHES AT THIS TIME MONITOR TOLERANCE AND LYTES
--- NOTE | 2023-08-26 12:05 | PM.CCPN ---
Subjective Subjective Date of Service: 08/26/23 Interval History: 53-year-old gentleman with underlying history of polysubstance abuse, schizoaffective disorder, achalasia status post myotomy admitted on 08/19/2023 with unresponsiveness on the background of polysubstance abuse and rhabdomyolysis with acute kidney failure requiring intubation and ventilatory support. Hospital course also complicated by septic shock and acute hypoxic respiratory failure secondary to pulmonary edema. No events overnight. Creatinine has plateaued, phosphorus continues to improve. Critical Care Time (minutes): 60 Physical Exam Vital Signs: Vital Signs: Last Vital Signs Temp 99.3 F 08/26/23 11:54 Pulse 90 08/26/23 11:54 Resp 26 H 08/26/23 11:54 BP 117/60 08/26/23 11:54 Pulse Ox 97 08/26/23 11:54 O2 Del Method Mechanical Ventil ation 08/26/23 11:54 O2 Flow Rate 40 08/26/23 03:00 FiO2 40 08/26/23 12:00 BMI result Body Mass Index 28.9 Const: General: no acute distress and other (Sedated on the vent) Eyes: Sclerae: sclerae normal EOM: EOMs intact bilaterally Neck: Neck: Yes no lymphadenopathy, Yes trachea midline and Yes supple Resp: Auscultation: crackles (Bilateral) Cardio: Rate: regular rate Rhythm: regular rhythm Heart sounds: no gallops, no murmurs and no rubs GI: Palpation (GI): Soft to palpation and Other GI palpation findings present ( Nontender) Auscultation: normal bowel sounds Extrem: General: No clubbing, No cyanosis and Yes edema (1+ bilateral) Objective Data Labs 08/26/23 05:27 08/26/23 05:27 Labs: Laboratory Results - last 24 hr 08/25/23 08/26/23 08/26/23 06:57 05:27 05:40 WBC 16.7 H RBC 2.51 L Hgb 7.2 L Hct 20.1 L* MCV 80.1 MCH 28.7 MCHC 35.8 RDW 17.0 H Plt Count 145 L MPV 11.6 Immature Gran % (Auto) 4.7 H Neut % (Auto) 67.4 Lymph % (Auto) 13.0 L [place] % (Auto) 5.2 Eos % (Auto) 9.3 H Baso % (Auto) 0.4 Lymph # (Auto) 2.2 [place] # (Auto) 0.9 Eos # (Auto) 1.6 H Baso # (Auto) 0.1 Abs Immat Gran (auto) 0.79 H Absolute Neuts (auto) 11.2 H Absolute Nucleated RBC 0.020 H Nucleated RBC % (auto) 0.1 Smear Path Review SEE NOTE VBG pH 7.44 H VBG pCO2 35 VBG pO2 50 VBG HCO3 25 VBG O2 Saturation TNP VBG Base Excess 1.0 Sodium 142 Potassium 3.8 Chloride 103 Carbon Dioxide 22 Anion Gap 21 H BUN 90 H Creatinine 8.42 H* Estim Creat Clear Calc 10.5 Estimated GFR 7 Random Glucose 138 H Calcium 8.0 L Phosphorus 4.6 H Magnesium 2.3 Albumin 2.5 L Crossmatch See Detail Microbiology Microbiology Results: Microbiology 08/20/23 16:53 Lung - Suctioned Gram Stain - Final 08/20/23 16:53 Lung - Suctioned Sputum Culture - Final Stefanie albicans Stefanie dubliniensis 08/19/23 02:59 Blood - Venous Blood Culture - Final Propionibacterium acnes 08/19/23 02:59 Blood - Venous Blood Culture - Final Propionibacterium acnes 08/19/23 Unknown Urine Catheterized - Bess Catheter Urine Culture - Final No growth. Progress Note: A&P Assessment and plan (1) Polysubstance abuse: Status: Acute (2) Aspiration pneumonia: Status: Acute (3) Acute hypoxemic respiratory failure: Status: Acute (4) NAOMI (acute kidney injury): Status: Acute (5) Rhabdomyolysis: Status: Acute Plan Assessment: 53-year-old male admitted with encephalopathy and rhabdomyolysis with NAOMI secondary to polysubstance abuse further complicated by pulmonary aspiration and shock requiring ventilatory support Plan: Neuro: Encephalopathy, likely secondary to polysubstance abuse. Cardiac: Septic shock on the background of pulmonary aspiration/pneumonitis, continue to titrate off pressor support as tolerated. Pulmonary: Acute hypoxic respiratory failure on the background pulmonary aspiration and pulmonary edema from rhabdomyolysis. Continue to titrate off ventilatory support as tolerated. Renal: Acute renal failure secondary to rhabdomyolysis. Non oliguric. Continue to monitor renal indices and urine output. Forced furosemide improving, creatinine has plateaued. Endo: No acute issues. GI: No acute issues. ID: Empiric coverage for pulmonary aspiration. Heme/Onc: No acute issues. Psych: No acute issues. Underlying schizoaffective disorder. Miscellaneous: No acute issues. Prophylaxis: Heparin, ppi Diet: Tube feeds Critical care time spent: 60 minutes Quality Stroke Does the patient have a stroke diagnosis?: No VTE Prior VTE?: No VTE Risk Level:: Medical - low VTE Device Contraindication: N/A - Device Ordered VTE Drug Contraindication: N/A - Med Ordered
--- NOTE | 2023-08-26 15:10 | MHC.CM.PN ---
PT REMAINS IN ICU SEDATED AND ON VENTILATORY SUPPORT. CM WILL CONTINUE TO FOLLOW FOR DC PLAN.
[2023-08-27] VITALS (34 sets, daily range): BP systolic 89–145; BP diastolic 42–79; PULSE 95–122; RESP 20–36; TEMP 35.1–38; O2SAT 91–96; BMI 29.4
[2023-08-27] MEDS: propofoL 1,000 MG/100 ML VIAL 20.16 MG IVCONT ×6 (00:04→22:31)
[2023-08-27] MEDS: Heparin Sodium,Porcine 5,000 UNIT/ML VIAL 5000 UNIT SUBCUT ×3 (03:56→18:04)
[2023-08-27] MEDS: Metoclopramide HCl 10 MG/2 ML VIAL IVPUSH ×3 (03:56→18:04)
[2023-08-27 05:38] LABS: VBG Base Excess 1.1 mmol/L; VBG HCO3 24 mmol/L (22-26); VBG pCO2 35 mmHg; VBG pH 7.45 (7.32-7.43); VBG pO2 49 mmHg
[2023-08-27 05:42] LABS: Mean Corpuscular HGB Conc 35.4 g/dl (31.0-36.0); Mean Corpuscular Hemoglobin 28.2 pg (27.0-33.0); Mean Corpuscular Volume 79.8 fL (80.0-98.0); Mean Platelet Volume 10.9 fL (9.4-12.4); Platelet Count 160 X10*3/uL (160-400); Red Blood Count 2.48 X10*6/uL (4.60-5.80); Red Cell Distribution Width 17.4 % (11.0-16.0)
[2023-08-27 05:49] LABS: Venous Blood Gas Refer to POC result
[2023-08-27] MEDS: Omeprazole/Na Bicarb Oral Susp 20 MG/10 ML UD Cup 40 MG PO (05:54)
[2023-08-27] MEDS: Piperacillin Sodium/Tazobactam 2.25 GM in 0.9 % Sodium Chloride 50 ML IV ×3 (05:54→21:54)
[2023-08-27 05:57] LABS: Anion Gap 23 (12-20); Blood Urea Nitrogen 100 mg/dL (9-16); Calcium 8.7 mg/dL (8.4-10.2); Carbon Dioxide 22 mmol/L (22-29); Chloride 102 mmol/L (96-108); Creatinine Clr Calc Pharmacy 10.8; Estimated Glomerular Filt Rate 7; Glucose Random 132 mg/dL (60-115); Magnesium 2.2 mg/dL (1.6-2.6); Potassium 4.8 mmol/L (3.3-5.1); Sodium 142 mmol/L (135-145)
[2023-08-27 06:01] LABS: Hematocrit 19.8 % (42.0-52.0)
[2023-08-27 06:13] LABS: Eosinophils Absolute Manual 2.1 X10*3/uL (0.0-0.4); Eosinophils Percent Manual 11 % (0-4); Lymphocytes Absolute Manual 1.3 X10*3/uL (1.2-4.9); Lymphocytes Percent Manual 7 % (20-40); Monocytes Absolute Manual 0.2 X10*3/uL (0.1-1.2); Monocytes Percent Manual 1 % (2-11)
[2023-08-27 06:14] LABS: Band Neutrophils Percent 4 % (3-5); Metamyelocytes Absolute 0.2 X10*3/uL; Metamyelocytes Percent 1 %; Myelocytes Absolute 0.2 X10*/uL; Myelocytes Percent 1 %; Neutrophils Percent Manual 75 % (45-73)
[2023-08-27 06:16] LABS: Hypochromasia 1+ (5-14) /OIF; Ovalocytes 1+ (5-14) /OIF; RBC Morphology NOTED; Schistocytes 1+ (0-2) /OIF; Tear Drop Cells 1+ (0-2) /OIF
[2023-08-27 06:17] LABS: Dohle Bodies PRESENT
[2023-08-27 06:18] LABS: Microcytosis 1+ (5-14) /OIF; Platelet Estimate NORMAL (NORMAL); Platelet Morphology Comment NORMAL; Polychromasia 1+ (0-2) /OIF; Toxic Granulation PRESENT
[2023-08-27] MEDS: fentaNYL citrate/NS 1,000 MCG/100 ML PLAST..BAG 10 MCG IVCONT (07:03)
[2023-08-27] MEDS: dexmedeTOMIDidine HCL/NS 400 MCG/100 ML INFUS..BTL 11.1 MCG IVCONT (07:04)
[2023-08-27] MEDS: Albumin Human 25 % 100 ML IV (07:17)
[2023-08-27] MEDS: Chlorhexidine Gluc Oral Rinse 15 ML MOUTHWASH BUCCAL ×3 (09:16→20:48)
[2023-08-27] MEDS: QUEtiapine Fumarate 50 MG TABLET PO ×2 (09:16→20:48)
--- NOTE | 2023-08-27 09:28 | P.PNCC_ITS ---
Subjective Subjective Date of Service: 08/27/23 Interval History: 53-year-old gentleman with underlying history of polysubstance abuse, schizoaffective disorder, achalasia status post myotomy admitted on 08/19/2023 with unresponsiveness on the background of polysubstance abuse and rhabdomyolysis with acute kidney failure requiring intubation and ventilatory support. Hospital course also complicated by septic shock and acute hypoxic respiratory failure secondary to pulmonary edema. No events overnight. Renal function is starting to improve. Critical Care Time (minutes): 60 Physical Exam 2 Vital Signs: Vital Signs: Last Vital Signs Temp 99.7 F 08/27/23 09:14 Pulse 105 H 08/27/23 09:14 Resp 31 H 08/27/23 09:14 BP 102/54 L 08/27/23 09:14 Pulse Ox 94 08/27/23 09:00 O2 Del Method Mechanical Ventil ation 08/27/23 09:00 O2 Flow Rate 40 08/26/23 03:00 FiO2 40 08/27/23 09:00 BMI result Body Mass Index 29.4 Const: General: no acute distress and other (Sedated on the vent) Eyes: Sclerae: sclerae normal EOM: EOMs intact bilaterally Neck: Neck: Yes no lymphadenopathy, Yes trachea midline and Yes supple Resp: Auscultation: crackles (Bilateral) Cardio: Rate: regular rate Rhythm: regular rhythm Heart sounds: no gallops, no murmurs and no rubs GI: Palpation (GI): Soft to palpation and Other GI palpation findings present ( Nontender) Auscultation: normal bowel sounds Extrem: General: No clubbing, No cyanosis and Yes edema (2+ bilateral) Objective Data Labs 08/27/23 05:28 08/27/23 05:28 Labs: Laboratory Results - last 24 hr 08/25/23 08/27/23 08/27/23 06:57 05:28 05:30 WBC 19.0 H RBC 2.48 L Hgb 7.0 L* Hct 19.8 L* MCV 79.8 L MCH 28.2 MCHC 35.4 RDW 17.4 H Plt Count 160 MPV 10.9 Immature Gran % (Auto) Cancelled Neut % (Auto) Cancelled Lymph % (Auto) Cancelled [place] % (Auto) Cancelled Eos % (Auto) Cancelled Baso % (Auto) Cancelled Lymph # (Auto) Cancelled [place] # (Auto) Cancelled Eos # (Auto) Cancelled Baso # (Auto) Cancelled Abs Immat Gran (auto) Cancelled Absolute Neuts (auto) Cancelled Absolute Nucleated RBC 0.000 Nucleated RBC % (auto) 0.0 Neutrophils % (Manual) 75 H Band Neutrophils % 4 Lymphocytes % (Manual) 7 L Monocytes % (Manual) 1 L Eosinophils % (Manual) 11 H Metamyelocytes % 1 Myelocytes % 1 Abs Neuts (Manual) 15.0 H Lymphocytes # (Manual) 1.3 Monocytes # (Manual) 0.2 Eosinophils # (Manual) 2.1 H Metamyelocytes # 0.2 Myelocytes # 0.2 Toxic Granulation PRESENT Dohle Bodies PRESENT Platelet Estimate NORMAL Plt Morphology Comment NORMAL RBC Morphology NOTED Polychromasia 1+ (0-2) Hypochromasia 1+ (5-14) Microcytosis 1+ (5-14) Tear Drop Cells 1+ (0-2) Ovalocytes 1+ (5-14) Schistocytes 1+ (0-2) VBG pH 7.45 H VBG pCO2 35 VBG pO2 49 VBG HCO3 24 VBG O2 Saturation 82.0 VBG Base Excess 1.1 Sodium 142 Potassium 4.8 D Chloride 102 Carbon Dioxide 22 Anion Gap 23 H BUN 100 H Creatinine 8.19 H* Estim Creat Clear Calc 10.8 Estimated GFR 7 Random Glucose 132 H Calcium 8.7 D Phosphorus 4.0 Magnesium 2.2 Albumin 3.0 L Blood Type O Positive Antibody Screen NEGATIVE Crossmatch See Detail Microbiology Microbiology Results: Microbiology 08/20/23 16:53 Lung - Suctioned Gram Stain - Final 08/20/23 16:53 Lung - Suctioned Sputum Culture - Final Stefanie albicans Stefanie dubliniensis 08/19/23 02:59 Blood - Venous Blood Culture - Final Propionibacterium acnes 08/19/23 02:59 Blood - Venous Blood Culture - Final Propionibacterium acnes 08/19/23 Unknown Urine Catheterized - Bess Catheter Urine Culture - Final No growth. Progress Note: A&P Assessment and plan (1) Polysubstance abuse: Status: Acute (2) Aspiration pneumonia: Status: Acute (3) Acute hypoxemic respiratory failure: Status: Acute (4) NAOMI (acute kidney injury): Status: Acute (5) Rhabdomyolysis: Status: Acute Plan Assessment: 53-year-old male admitted with encephalopathy and rhabdomyolysis with NAOMI secondary to polysubstance abuse further complicated by pulmonary aspiration and shock requiring ventilatory support Plan: Neuro: Encephalopathy, likely secondary to polysubstance abuse. Cardiac: Septic shock on the background of pulmonary aspiration/pneumonitis, continue to titrate off pressor support as tolerated. Pulmonary: Acute hypoxic respiratory failure on the background pulmonary aspiration and pulmonary edema from rhabdomyolysis. Continue to titrate off ventilatory support as tolerated. Renal: Acute renal failure secondary to rhabdomyolysis, improving. Non oliguric. Continue to monitor renal indices and urine output. Endo: No acute issues. GI: No acute issues. ID: Empiric coverage for pulmonary aspiration. Heme/Onc: No acute issues. Psych: No acute issues. Underlying schizoaffective disorder. Miscellaneous: No acute issues. Prophylaxis: Heparin, ppi Diet: Tube feeds Critical care time spent: 60 minutes Quality Stroke Does the patient have a stroke diagnosis?: No VTE Prior VTE?: No VTE Risk Level:: Medical - low VTE Device Contraindication: N/A - Device Ordered VTE Drug Contraindication: N/A - Med Ordered
--- NOTE | 2023-08-27 11:22 | MHC.CLN ---
F/U PT REMAINS INTUBATED AND SEDATED DISCUSSED AT ROUNDS WITH MD REVIEWED LABS PT RECEIVING PROMOTE AT MAX GOAL RATE 75ML/HR PROVIDES 1800KCALS (2332KCALS WITH SEDATION; 28KCALS/KG), 112G PROTEIN (1.4G/KG), 1510ML FREE WATER HOLD FREE WATER FLUSHES AT THIS TIME MONITOR TOLERANCE AND LYTES
--- NOTE | 2023-08-27 12:04 | MHC.CM.PN ---
Pt continues on Ventilatory support: no plans for weaning until his fluid overload has improved. Per MD, pt is roughly 9 liters +. Pt's renal status should improve once diuretics have stopped. Pt's d/c plan remains undetermined as his clinical progress has not been demonstrated. Pt may be difficult to place d/t active substance use. Pt's nephew/HCP Dheeraj updated on status. CM to follow
[2023-08-27] MEDS: fentaNYL citrate/NS 1,000 MCG/100 ML PLAST..BAG 7.5 MCG IVCONT (18:30)
[2023-08-27] MEDS: dexmedeTOMIDidine HCL/NS 400 MCG/100 ML INFUS..BTL 6.66 MCG IVCONT (19:36)
[2023-08-27] MEDS: Midazolam HCl/PF 2 MG/2 ML VIAL IVPUSH (23:22)
[2023-08-28] VITALS (33 sets, daily range): BP systolic 102–136; BP diastolic 50–81; PULSE 93–124; RESP 23–114; TEMP 34.9–37.5; O2SAT 91–95; BMI 30.8
[2023-08-28] MEDS: Heparin Sodium,Porcine 5,000 UNIT/ML VIAL 5000 UNIT SUBCUT ×3 (02:26→18:09)
[2023-08-28] MEDS: Metoclopramide HCl 10 MG/2 ML VIAL IVPUSH ×3 (02:26→18:10)
[2023-08-28] MEDS: propofoL 1,000 MG/100 ML VIAL 20.16 MG IVCONT ×5 (02:28→21:24)
[2023-08-28 04:48] LABS: VBG Base Excess 0.1 mmol/L; VBG HCO3 24 mmol/L (22-26); VBG pCO2 37 mmHg; VBG pH 7.41 (7.32-7.43); VBG pO2 72 mmHg
[2023-08-28 04:51] LABS: Venous Blood Gas Refer to POC result
[2023-08-28 05:17] LABS: Hemoglobin 7.3 g/dl (14.0-18.0); Mean Corpuscular HGB Conc 35.1 g/dl (31.0-36.0); Mean Corpuscular Hemoglobin 28.2 pg (27.0-33.0); Mean Corpuscular Volume 80.3 fL (80.0-98.0); Mean Platelet Volume 11.5 fL (9.4-12.4); Platelet Count 214 X10*3/uL (160-400); Red Blood Count 2.59 X10*6/uL (4.60-5.80); Red Cell Distribution Width 18.1 % (11.0-16.0); White Blood Count 19.2 X10*3/uL (4.8-10.8)
[2023-08-28 05:35] LABS: Albumin Level 2.9 g/dL (3.5-5.0); Anion Gap 22 (12-20); Blood Urea Nitrogen 111 mg/dL (9-16); Calcium 8.6 mg/dL (8.4-10.2); Carbon Dioxide 23 mmol/L (22-29); Chloride 102 mmol/L (96-108); Creatinine Clr Calc Pharmacy 10.4; Estimated Glomerular Filt Rate 7; Glucose Random 144 mg/dL (60-115); Magnesium 2.3 mg/dL (1.6-2.6); Phosphorus 4.7 mg/dL (2.7-4.5); Potassium 5.6 mmol/L (3.3-5.1); Sodium 141 mmol/L (135-145)
[2023-08-28 05:38] LABS: Hematocrit 20.8 % (42.0-52.0)
[2023-08-28 05:59] LABS: Band Neutrophils Percent 3 % (3-5); Basophils Abs Manual 0.2 X10*3/uL (0.0-0.2); Eosinophils Absolute Manual 1.7 X10*3/uL (0.0-0.4); Eosinophils Percent Manual 9 % (0-4); Lymphocytes Absolute Manual 2.9 X10*3/uL (1.2-4.9); Lymphocytes Percent Manual 15 % (20-40); Metamyelocytes Absolute 0.2 X10*3/uL; Metamyelocytes Percent 1 %; Monocytes Percent Manual 5 % (2-11); Myelocytes Absolute 0.2 X10*/uL; Myelocytes Percent 1 %; Neutrophils Absolute Manual 13.2 X10*3/uL (2.0-8.3); Neutrophils Percent Manual 66 % (45-73)
[2023-08-28 06:00] LABS: RBC Morphology NOTED
[2023-08-28 06:02] LABS: Hypochromasia 1+ (5-14) /OIF; Microcytosis 1+ (5-14) /OIF; Ovalocytes 1+ (5-14) /OIF; Platelet Estimate NORMAL (NORMAL); Platelet Morphology Comment NORMAL
[2023-08-28 06:03] LABS: Schistocytes 1+ (0-2) /OIF; Stomatocytes 1+ (5-14) /OIF; Target Cells 1+ (5-14) /OIF
[2023-08-28 06:05] LABS: Polychromasia 1+ (0-2) /OIF; Spherocytes 1+ (0-2) /OIF; Toxic Granulation PRESENT
[2023-08-28 06:06] LABS: Dohle Bodies PRESENT
[2023-08-28] MEDS: Piperacillin Sodium/Tazobactam 2.25 GM in 0.9 % Sodium Chloride 50 ML IV ×3 (06:13→21:22)
[2023-08-28] MEDS: Omeprazole/Na Bicarb Oral Susp 20 MG/10 ML UD Cup 40 MG PO (06:22)
[2023-08-28] MEDS: fentaNYL citrate/NS 1,000 MCG/100 ML PLAST..BAG 7.5 MCG IVCONT (07:51)
[2023-08-28] MEDS: Albumin Human 25 % 50 ML 100 ML IV ×2 (07:55→08:28)
[2023-08-28] MEDS: QUEtiapine Fumarate 50 MG TABLET PO ×2 (08:18→20:17)
[2023-08-28] MEDS: Chlorhexidine Gluc Oral Rinse 15 ML MOUTHWASH BUCCAL ×3 (08:20→20:17)
[2023-08-28] MEDS: Bumetanide 1 MG/4 ML VIAL IVPUSH ×2 (08:44→16:31)
[2023-08-28] MEDS: dexmedeTOMIDidine HCL/NS 400 MCG/100 ML INFUS..BTL 6.66 MCG IVCONT (10:16)
--- NOTE | 2023-08-28 11:53 | MHC.CLN ---
F/U PT REMAINS INTUBATED AND SEDATED DISCUSSED AT ROUNDS WITH MD REVIEWED LABS PT RECEIVING PROMOTE AT MAX GOAL RATE 75ML/HR PROVIDES 1800KCALS (2332KCALS WITH SEDATION; 28KCALS/KG), 112G PROTEIN (1.4G/KG), 1510ML FREE WATER RECOMMEND SWITCHING TF FORMULA TO NEPRO AT MAX GOAL RATE 35ML/HR TO PROVIDE 1512KCALS (2044KCLAS WITH SEDATION; 25KCALS/KG), 68G PROTEIN, 610ML FREE WATER FROM FORMULA HOLD FREE WATER FLUSHES AT THIS TIME MONITOR TOLERANCE AND LYTES
--- NOTE | 2023-08-28 12:00 | P.PNCC_ITS ---
Subjective Subjective Date of Service: 08/28/23 Interval History: 53-year-old gentleman with underlying history of polysubstance abuse, schizoaffective disorder, achalasia status post myotomy admitted on 08/19/2023 with unresponsiveness on the background of polysubstance abuse and rhabdomyolysis with acute kidney failure requiring intubation and ventilatory support. Hospital course also complicated by septic shock and acute hypoxic respiratory failure secondary to pulmonary edema. No events overnight. Renal function is worsening. Critical Care Time (minutes): 60 Physical Exam 2 Vital Signs: Vital Signs: Last Vital Signs Temp 98.1 F 08/28/23 10:00 Pulse 98 08/28/23 10:58 Resp 26 H 08/28/23 10:58 BP 115/59 L 08/28/23 10:58 Pulse Ox 95 08/28/23 10:58 O2 Del Method Mechanical Ventil ation 08/28/23 10:58 O2 Flow Rate 40 08/26/23 03:00 FiO2 40 08/28/23 11:15 BMI result Body Mass Index 30.8 Const: General: no acute distress and other (Sedated on the vent) Eyes: Sclerae: sclerae normal EOM: EOMs intact bilaterally Neck: Neck: Yes no lymphadenopathy, Yes trachea midline and Yes supple Resp: Auscultation: crackles (Bilateral) Cardio: Rate: regular rate Rhythm: regular rhythm Heart sounds: no gallops, no murmurs and no rubs GI: Palpation (GI): Soft to palpation and Other GI palpation findings present ( Nontender) Auscultation: normal bowel sounds Extrem: General: No clubbing, No cyanosis and Yes edema (1+ bilateral) Objective Data Labs 08/28/23 04:43 08/28/23 04:43 Labs: Laboratory Results - last 24 hr 08/28/23 08/28/23 04:40 04:43 WBC 19.2 H RBC 2.59 L Hgb 7.3 L Hct 20.8 L* MCV 80.3 MCH 28.2 MCHC 35.1 RDW 18.1 H Plt Count 214 D MPV 11.5 Immature Gran % (Auto) Cancelled Neut % (Auto) Cancelled Lymph % (Auto) Cancelled [place] % (Auto) Cancelled Eos % (Auto) Cancelled Baso % (Auto) Cancelled Lymph # (Auto) Cancelled [place] # (Auto) Cancelled Eos # (Auto) Cancelled Baso # (Auto) Cancelled Abs Immat Gran (auto) Cancelled Absolute Neuts (auto) Cancelled Absolute Nucleated RBC 0.000 Nucleated RBC % (auto) 0.0 Neutrophils % (Manual) 66 Band Neutrophils % 3 Lymphocytes % (Manual) 15 L Monocytes % (Manual) 5 Eosinophils % (Manual) 9 H Metamyelocytes % 1 Myelocytes % 1 Abs Neuts (Manual) 13.2 H Lymphocytes # (Manual) 2.9 Monocytes # (Manual) 1.0 Eosinophils # (Manual) 1.7 H Basophils # (Manual) 0.2 Metamyelocytes # 0.2 Myelocytes # 0.2 Toxic Granulation PRESENT Dohle Bodies PRESENT Platelet Estimate NORMAL Plt Morphology Comment NORMAL RBC Morphology NOTED Polychromasia 1+ (0-2) Hypochromasia 1+ (5-14) Microcytosis 1+ (5-14) Spherocytes 1+ (0-2) Target Cells 1+ (5-14) Ovalocytes 1+ (5-14) Stomatocytes 1+ (5-14) Schistocytes 1+ (0-2) VBG pH 7.41 VBG pCO2 37 VBG pO2 72 VBG HCO3 24 VBG O2 Saturation 95.0 VBG Base Excess 0.1 Sodium 141 Potassium 5.6 H Chloride 102 Carbon Dioxide 23 Anion Gap 22 H BUN 111 H Creatinine 8.56 H* Estim Creat Clear Calc 10.4 Estimated GFR 7 Random Glucose 144 H Calcium 8.6 Phosphorus 4.7 H Magnesium 2.3 Albumin 2.9 L Microbiology Microbiology Results: Microbiology 08/20/23 16:53 Lung - Suctioned Gram Stain - Final 08/20/23 16:53 Lung - Suctioned Sputum Culture - Final Stefanie albicans Stefanie dubliniensis 08/19/23 02:59 Blood - Venous Blood Culture - Final Propionibacterium acnes 08/19/23 02:59 Blood - Venous Blood Culture - Final Propionibacterium acnes 08/19/23 Unknown Urine Catheterized - Bess Catheter Urine Culture - Final No growth. Progress Note: A&P Assessment and plan (1) Polysubstance abuse: Status: Acute (2) Aspiration pneumonia: Status: Acute (3) Acute hypoxemic respiratory failure: Status: Acute (4) NAOMI (acute kidney injury): Status: Acute (5) Rhabdomyolysis: Status: Acute Plan Assessment: 53-year-old male admitted with encephalopathy and rhabdomyolysis with NAOMI secondary to polysubstance abuse further complicated by pulmonary aspiration and shock requiring ventilatory support Plan: Neuro: Encephalopathy, likely secondary to polysubstance abuse. Cardiac: Septic shock on the background of pulmonary aspiration/pneumonitis, continue to titrate off pressor support as tolerated. Pulmonary: Acute hypoxic respiratory failure on the background pulmonary aspiration and pulmonary edema from rhabdomyolysis. Continue to titrate off ventilatory support as tolerated. Renal: Acute renal failure secondary to rhabdomyolysis, worsening. Non oliguric. Continue to monitor renal indices and urine output. May require hemodialysis. Endo: No acute issues. GI: No acute issues. ID: Empiric coverage for pulmonary aspiration. Heme/Onc: No acute issues. Psych: No acute issues. Underlying schizoaffective disorder. Miscellaneous: No acute issues. Prophylaxis: Heparin, ppi Diet: Tube feeds Critical care time spent: 60 minutes Quality Stroke Does the patient have a stroke diagnosis?: No VTE Prior VTE?: No VTE Risk Level:: Medical - low VTE Device Contraindication: N/A - Device Ordered VTE Drug Contraindication: N/A - Med Ordered
--- NOTE | 2023-08-28 12:59 | P.CDIM_ITS ---
PROVIDER RESPONSE TEXT: To clarify, the appropriate diagnosis supported by the clinical indicators: Hyperkalemia QUERY TEXT: PHYSICIAN'S DOCUMENTATION REQUEST Date of Query: 08/28/2023 12:14 PM EDT Patient Name: Jerson Taveras Admit Date: 08/19/2023 Dear Narciso Pittman MD, A review of the medical record indicates additional documentation may be needed. Please review below and update the documentation accordingly. Clinical Indicators: LABS: potassium 5.6 H Based on the above, is there a diagnosis that correlates with the lab findings: Hyperkalemia Labs indicate a diagnosis of (please specify) Other (explain) Clinically unable to determine (explain) Thank you, Mirta Feliciano, CCS, CDIS Use of terms such as suspected, likely, concern for, or probable (associated with a specific diagnosi s that is being evaluated, monitored, or treated as if it exists) are acceptable and can be coded in the inpatient se tting, when documented at the time of discharge. Please use your independent medical judgment in providing your response. THIS QUERY IS PART OF THE PERMANENT MEDICAL RECORD
--- NOTE | 2023-08-28 13:07 | MHC.CM.PN ---
Pt continues care in ICU: vented and with worsening renal function. Pt is 23 liters + and producing little urine. Plans are to change diuresis - MD to notify HCP of condition as pt may require HD if renal status does not improve. Pt does not have a finalized d/c plan. He came from home but will likely require placement d/t his long ICU stay. CM to follow
[2023-08-28] MEDS: Midazolam HCl/PF 2 MG/2 ML VIAL IVPUSH (19:43)
[2023-08-28 20:52] LABS: Anion Gap 23 (12-20); Calcium 9.2 mg/dL (8.4-10.2); Carbon Dioxide 23 mmol/L (22-29); Chloride 101 mmol/L (96-108); Creatinine Clr Calc Pharmacy 10.5; Estimated Glomerular Filt Rate 6; Glucose Random 115 mg/dL (60-115); Magnesium 2.3 mg/dL (1.6-2.6); Phosphorus 5.5 mg/dL (2.7-4.5); Sodium 141 mmol/L (135-145)
[2023-08-28] MEDS: fentaNYL citrate/NS 1,000 MCG/100 ML PLAST..BAG 10 MCG IVCONT (20:58)
[2023-08-28] MEDS: Sodium Zirconium Cyclosilicate 10 GM POWD.PACK PO (21:01)
[2023-08-28 21:05] LABS: Blood Urea Nitrogen 123 mg/dL (9-16)
[2023-08-29] VITALS (33 sets, daily range): BP systolic 107–138; BP diastolic 56–77; PULSE 92–124; RESP 18–31; TEMP 34.9–38.7; O2SAT 92–95; BMI 30.2
[2023-08-29] MEDS: Metoclopramide HCl 10 MG/2 ML VIAL IVPUSH ×2 (02:09→10:43)
[2023-08-29] MEDS: Heparin Sodium,Porcine 5,000 UNIT/ML VIAL 5000 UNIT SUBCUT ×3 (02:10→18:14)
[2023-08-29] MEDS: propofoL 1,000 MG/100 ML VIAL 20.16 MG IVCONT ×5 (02:27→19:46)
[2023-08-29 04:37] LABS: VBG Base Excess 0.5 mmol/L; VBG HCO3 24 mmol/L (22-26); VBG pCO2 38 mmHg; VBG pH 7.41 (7.32-7.43); VBG pO2 65 mmHg
[2023-08-29 04:51] LABS: Venous Blood Gas Refer to POC result
[2023-08-29 05:26] LABS: Hematocrit 21.4 % (42.0-52.0); Hemoglobin 7.5 g/dl (14.0-18.0); Mean Corpuscular Hemoglobin 28.8 pg (27.0-33.0); Mean Corpuscular Volume 82.3 fL (80.0-98.0); Mean Platelet Volume 11.2 fL (9.4-12.4); Platelet Count 298 X10*3/uL (160-400); Red Cell Distribution Width 18.5 % (11.0-16.0); White Blood Count 19.4 X10*3/uL (4.8-10.8)
[2023-08-29 05:45] LABS: Albumin Level 3.1 g/dL (3.5-5.0); Anion Gap 24 (12-20); Calcium 9.2 mg/dL (8.4-10.2); Carbon Dioxide 23 mmol/L (22-29); Chloride 100 mmol/L (96-108); Creatinine Clr Calc Pharmacy 10.4; Estimated Glomerular Filt Rate 6; Glucose Random 111 mg/dL (60-115); Magnesium 2.3 mg/dL (1.6-2.6); Potassium 5.8 mmol/L (3.3-5.1); Sodium 141 mmol/L (135-145)
[2023-08-29] MEDS: Piperacillin Sodium/Tazobactam 2.25 GM in 0.9 % Sodium Chloride 50 ML IV ×3 (05:49→22:26)
[2023-08-29] MEDS: Omeprazole/Na Bicarb Oral Susp 20 MG/10 ML UD Cup 40 MG PO (05:51)
[2023-08-29 06:00] LABS: Band Neutrophils Percent 12 % (3-5); Basophils Abs Manual 0.2 X10*3/uL (0.0-0.2); Basophils Percent Manual 1 % (0-2); Eosinophils Percent Manual 5 % (0-4); Lymphocytes Absolute Manual 2.9 X10*3/uL (1.2-4.9); Lymphocytes Percent Manual 15 % (20-40); Metamyelocytes Absolute 0.2 X10*3/uL; Metamyelocytes Percent 1 %; Monocytes Absolute Manual 0.6 X10*3/uL (0.1-1.2); Monocytes Percent Manual 3 % (2-11); Myelocytes Absolute 0.2 X10*/uL; Myelocytes Percent 1 %; Neutrophils Absolute Manual 14.4 X10*3/uL (2.0-8.3); Neutrophils Percent Manual 62 % (45-73)
[2023-08-29 06:17] LABS: Large Platelet PRESENT; Macrocytosis 1+ (5-14) /OIF; Ovalocytes 1+ (5-14) /OIF; Platelet Estimate NORMAL (NORMAL); Platelet Morphology Comment NOTED; RBC Morphology NOTED; Stomatocytes 1+ (5-14) /OIF; Target Cells 1+ (5-14) /OIF
[2023-08-29 06:18] LABS: Polychromasia 1+ (0-2) /OIF; Smudge Cells PRESENT; Tear Drop Cells 2+ (3-5) /OIF; Toxic Granulation PRESENT
[2023-08-29 06:25] LABS: Blood Urea Nitrogen 123 mg/dL (9-16)
[2023-08-29] MEDS: Albumin Human 25 % 100 ML IV ×2 (06:28→12:14)
[2023-08-29] MEDS: fentaNYL citrate/NS 1,000 MCG/100 ML PLAST..BAG 10 MCG IVCONT ×3 (06:34→23:27)
[2023-08-29] MEDS: Chlorhexidine Gluc Oral Rinse 15 ML MOUTHWASH BUCCAL ×3 (07:28→21:51)
[2023-08-29] MEDS: Bumetanide 1 MG/4 ML VIAL IVPUSH (07:28)
[2023-08-29] MEDS: Bumetanide 25 MG in Container,Empty 0 ML IVCONT (10:43)
--- NOTE | 2023-08-29 11:27 | P.PNCC_ITS ---
Subjective Subjective Date of Service: 08/29/23 Interval History: 53-year-old gentleman with underlying history of polysubstance abuse, schizoaffective disorder, achalasia status post myotomy admitted on 08/19/2023 with unresponsiveness on the background of polysubstance abuse and rhabdomyolysis with acute kidney failure requiring intubation and ventilatory support. Hospital course also complicated by septic shock and acute hypoxic respiratory failure secondary to pulmonary edema. No events overnight. Renal function continues to worsen, but urine output is good. Critical Care Time (minutes): 60 Physical Exam 2 Vital Signs: Vital Signs: Last Vital Signs Temp 100.8 F H 08/29/23 11:00 Pulse 115 H 08/29/23 11:00 Resp 31 H 08/29/23 11:00 BP 119/66 08/29/23 11:00 Pulse Ox 95 08/29/23 11:00 O2 Del Method Mechanical Ventil ation 08/29/23 11:00 O2 Flow Rate 40 08/26/23 03:00 FiO2 40 08/29/23 11:00 BMI result Body Mass Index 30.2 Const: General: no acute distress and other (Sedated on the vent) Eyes: Sclerae: sclerae normal EOM: EOMs intact bilaterally Neck: Neck: Yes no lymphadenopathy, Yes trachea midline and Yes supple Resp: Auscultation: crackles (Bilateral) Cardio: Rate: tachycardic Rhythm: regular rhythm Heart sounds: no gallops, no murmurs and no rubs GI: Palpation (GI): Soft to palpation and Other GI palpation findings present ( Nontender) Auscultation: normal bowel sounds Extrem: General: No clubbing, No cyanosis and Yes edema (1+ bilateral) Objective Data Labs 08/29/23 04:30 08/29/23 04:30 Labs: Laboratory Results - last 24 hr 08/28/23 08/29/23 08/29/23 20:16 04:28 04:30 WBC 19.4 H RBC 2.60 L Hgb 7.5 L Hct 21.4 L MCV 82.3 MCH 28.8 MCHC 35.0 RDW 18.5 H Plt Count 298 D MPV 11.2 Immature Gran % (Auto) Cancelled Neut % (Auto) Cancelled Lymph % (Auto) Cancelled [place] % (Auto) Cancelled Eos % (Auto) Cancelled Baso % (Auto) Cancelled Lymph # (Auto) Cancelled [place] # (Auto) Cancelled Eos # (Auto) Cancelled Baso # (Auto) Cancelled Abs Immat Gran (auto) Cancelled Absolute Neuts (auto) Cancelled Absolute Nucleated RBC 0.000 Nucleated RBC % (auto) 0.0 Neutrophils % (Manual) 62 Band Neutrophils % 12 H Lymphocytes % (Manual) 15 L Monocytes % (Manual) 3 Eosinophils % (Manual) 5 H Basophils % (Manual) 1 Metamyelocytes % 1 Myelocytes % 1 Abs Neuts (Manual) 14.4 H Lymphocytes # (Manual) 2.9 Monocytes # (Manual) 0.6 Eosinophils # (Manual) 1.0 H Basophils # (Manual) 0.2 Metamyelocytes # 0.2 Myelocytes # 0.2 Smudge Cells PRESENT Toxic Granulation PRESENT Platelet Estimate NORMAL Large Platelets PRESENT Plt Morphology Comment NOTED RBC Morphology NOTED Polychromasia 1+ (0-2) Macrocytosis 1+ (5-14) Target Cells 1+ (5-14) Tear Drop Cells 2+ (3-5) Ovalocytes 1+ (5-14) Stomatocytes 1+ (5-14) VBG pH 7.41 VBG pCO2 38 VBG pO2 65 VBG HCO3 24 VBG O2 Saturation 92.0 VBG Base Excess 0.5 Sodium 141 141 Potassium 6.0 H* 5.8 H Chloride 101 100 Carbon Dioxide 23 23 Anion Gap 23 H 24 H BUN 123 H 123 H Creatinine 8.74 H* 8.81 H* Estim Creat Clear Calc 10.5 10.4 Estimated GFR 6 6 Random Glucose 115 111 Calcium 9.2 D 9.2 Phosphorus 5.5 H 6.0 H Magnesium 2.3 2.3 Albumin 3.1 L Microbiology Microbiology Results: Microbiology 08/20/23 16:53 Lung - Suctioned Gram Stain - Final 08/20/23 16:53 Lung - Suctioned Sputum Culture - Final Stefanie albicans Stefanie dubliniensis 08/19/23 02:59 Blood - Venous Blood Culture - Final Propionibacterium acnes 08/19/23 02:59 Blood - Venous Blood Culture - Final Propionibacterium acnes 08/19/23 Unknown Urine Catheterized - Bess Catheter Urine Culture - Final No growth. Progress Note: A&P Assessment and plan (1) Polysubstance abuse: Status: Acute (2) Aspiration pneumonia: Status: Acute (3) Acute hypoxemic respiratory failure: Status: Acute (4) NAOMI (acute kidney injury): Status: Acute (5) Rhabdomyolysis: Status: Acute Plan Assessment: 53-year-old male admitted with encephalopathy and rhabdomyolysis with NAOMI secondary to polysubstance abuse further complicated by pulmonary aspiration and shock requiring ventilatory support Plan: Neuro: Encephalopathy, likely secondary to polysubstance abuse. Cardiac: Septic shock on the background of pulmonary aspiration/pneumonitis, continue to titrate off pressor support as tolerated. Pulmonary: Acute hypoxic respiratory failure on the background pulmonary aspiration and pulmonary edema from rhabdomyolysis. Continue to titrate off ventilatory support as tolerated. Renal: Acute renal failure secondary to rhabdomyolysis, worsening. Non oliguric. Continue to monitor renal indices and urine output. May require hemodialysis. Endo: No acute issues. GI: No acute issues. ID: Empiric coverage for pulmonary aspiration. Heme/Onc: No acute issues. Psych: No acute issues. Underlying schizoaffective disorder. Miscellaneous: No acute issues. Prophylaxis: Heparin, ppi Diet: Tube feeds Critical care time spent: 60 minutes Quality Stroke Does the patient have a stroke diagnosis?: No VTE Prior VTE?: No VTE Risk Level:: Medical - low VTE Device Contraindication: N/A - Device Ordered VTE Drug Contraindication: N/A - Med Ordered
[2023-08-29] MEDS: Midazolam HCl/PF 2 MG/2 ML VIAL IVPUSH ×2 (11:47→19:36)
[2023-08-29] MEDS: fentaNYL citrate/PF 100 MCG/2 ML VIAL IVPUSH (12:20)
[2023-08-29] MEDS: dexmedeTOMIDidine HCL/NS 400 MCG/100 ML INFUS..BTL 17.76 MCG IVCONT ×3 (13:45→23:23)
[2023-08-29] MEDS: QUEtiapine Fumarate 50 MG TABLET PO (21:51)
[2023-08-29] MEDS: propofoL 1,000 MG/100 ML VIAL 25.2 MG IVCONT (23:28)
[2023-08-30] VITALS (36 sets, daily range): BP systolic 98–125; BP diastolic 49–64; PULSE 82–97; RESP 10–35; TEMP 28.8–38.2; O2SAT 92–98; BMI 30.5
[2023-08-30] MEDS: Midazolam HCl/PF 2 MG/2 ML VIAL IVPUSH (02:11)
[2023-08-30] MEDS: propofoL 1,000 MG/100 ML VIAL 25.2 MG IVCONT ×6 (02:30→20:53)
[2023-08-30] MEDS: Heparin Sodium,Porcine 5,000 UNIT/ML VIAL 5000 UNIT SUBCUT ×3 (02:30→18:19)
[2023-08-30] MEDS: dexmedeTOMIDidine HCL/NS 400 MCG/100 ML INFUS..BTL 17.76 MCG IVCONT ×3 (04:24→15:54)
[2023-08-30 05:19] LABS: VBG Base Excess 0.9 mmol/L; VBG HCO3 24 mmol/L (22-26); VBG pCO2 34 mmHg; VBG pH 7.45 (7.32-7.43); VBG pO2 50 mmHg
[2023-08-30 05:24] LABS: Mean Corpuscular HGB Conc 34.8 g/dl (31.0-36.0); Mean Corpuscular Hemoglobin 29.1 pg (27.0-33.0); Mean Corpuscular Volume 83.9 fL (80.0-98.0); Mean Platelet Volume 10.2 fL (9.4-12.4); Platelet Count 294 X10*3/uL (160-400); Red Blood Count 2.23 X10*6/uL (4.60-5.80); Red Cell Distribution Width 18.7 % (11.0-16.0); White Blood Count 17.7 X10*3/uL (4.8-10.8)
[2023-08-30 05:30] LABS: Hematocrit 18.7 % (42.0-52.0); Hemoglobin 6.5 g/dl (14.0-18.0)
[2023-08-30] MEDS: Piperacillin Sodium/Tazobactam 2.25 GM in 0.9 % Sodium Chloride 50 ML IV ×3 (05:30→21:57)
[2023-08-30] MEDS: Omeprazole/Na Bicarb Oral Susp 20 MG/10 ML UD Cup 40 MG PO (05:31)
[2023-08-30 05:45] LABS: Albumin Level 3.2 g/dL (3.5-5.0); Anion Gap 25 (12-20); Calcium 8.7 mg/dL (8.4-10.2); Carbon Dioxide 21 mmol/L (22-29); Chloride 101 mmol/L (96-108); Creatinine Clr Calc Pharmacy 10.3; Estimated Glomerular Filt Rate 6; Glucose Random 95 mg/dL (60-115); Magnesium 2.5 mg/dL (1.6-2.6); Phosphorus 7.3 mg/dL (2.7-4.5); Potassium 5.3 mmol/L (3.3-5.1); Sodium 142 mmol/L (135-145)
[2023-08-30 05:48] LABS: Blood Urea Nitrogen 137 mg/dL (9-16)
[2023-08-30 06:08] LABS: Band Neutrophils Percent 7 % (3-5); Basophils Abs Manual 0.2 X10*3/uL (0.0-0.2); Basophils Percent Manual 1 % (0-2); Eosinophils Absolute Manual 1.6 X10*3/uL (0.0-0.4); Eosinophils Percent Manual 9 % (0-4); Large Platelet PRESENT; Lymphocytes Absolute Manual 3.4 X10*3/uL (1.2-4.9); Lymphocytes Percent Manual 19 % (20-40); Metamyelocytes Absolute 0.2 X10*3/uL; Metamyelocytes Percent 1 %; Monocytes Absolute Manual 0.5 X10*3/uL (0.1-1.2); Monocytes Percent Manual 3 % (2-11); Neutrophils Absolute Manual 11.9 X10*3/uL (2.0-8.3); Neutrophils Percent Manual 60 % (45-73); Platelet Estimate NORMAL (NORMAL); Platelet Morphology Comment NOTED; RBC Morphology NOTED
[2023-08-30 06:09] LABS: Basophilic Stippling 1+ (0-2) /OIF; Howell Jolly Bodies PRESENT; Hypochromasia 1+ (5-14) /OIF; Polychromasia 1+ (0-2) /OIF; Smudge Cells PRESENT; Target Cells 1+ (5-14) /OIF; Tear Drop Cells 1+ (0-2) /OIF
[2023-08-30 06:23] LABS: Venous Blood Gas Refer to POC result
[2023-08-30] MEDS: Chlorhexidine Gluc Oral Rinse 15 ML MOUTHWASH BUCCAL ×3 (07:32→21:56)
[2023-08-30] MEDS: fentaNYL citrate/NS 1,000 MCG/100 ML PLAST..BAG 10 MCG IVCONT ×2 (09:29→19:11)
--- NOTE | 2023-08-30 10:47 | P.PNCC_ITS ---
Subjective Subjective Date of Service: 08/30/23 Interval History: 53-year-old gentleman with underlying history of polysubstance abuse, schizoaffective disorder, achalasia status post myotomy admitted on 08/19/2023 with unresponsiveness on the background of polysubstance abuse and rhabdomyolysis with acute kidney failure requiring intubation and ventilatory support. Hospital course also complicated by septic shock and acute hypoxic respiratory failure secondary to pulmonary edema. No events overnight. Creatinine has plateaued, BUN is increasing. Critical Care Time (minutes): 60 Physical Exam 2 Vital Signs: Vital Signs: Last Vital Signs Temp 100.8 F H 08/30/23 10:00 Pulse 86 08/30/23 10:00 Resp 20 08/30/23 10:00 BP 124/61 08/30/23 10:00 Pulse Ox 97 08/30/23 10:00 O2 Del Method Mechanical Ventil ation 08/30/23 10:00 O2 Flow Rate 40 08/26/23 03:00 FiO2 40 08/30/23 10:00 BMI result Body Mass Index 30.5 Const: General: no acute distress and other (Sedated on the vent) Eyes: Sclerae: sclerae normal EOM: EOMs intact bilaterally Neck: Neck: Yes no lymphadenopathy, Yes trachea midline and Yes supple Resp: Auscultation: crackles (Bilateral) Cardio: Rate: regular rate Rhythm: regular rhythm Heart sounds: no gallops, no murmurs and no rubs GI: Palpation (GI): Soft to palpation and Other GI palpation findings present ( Nontender) Auscultation: normal bowel sounds Extrem: General: No clubbing, No cyanosis and Yes edema (1+ bilateral) Objective Data Labs 08/30/23 05:05 08/30/23 05:05 Labs: Laboratory Results - last 24 hr 08/30/23 08/30/23 08/30/23 05:05 05:10 06:13 WBC 17.7 H RBC 2.23 L Hgb 6.5 L* Hct 18.7 L* MCV 83.9 MCH 29.1 MCHC 34.8 RDW 18.7 H Plt Count 294 MPV 10.2 Immature Gran % (Auto) Cancelled Neut % (Auto) Cancelled Lymph % (Auto) Cancelled [place] % (Auto) Cancelled Eos % (Auto) Cancelled Baso % (Auto) Cancelled Lymph # (Auto) Cancelled [place] # (Auto) Cancelled Eos # (Auto) Cancelled Baso # (Auto) Cancelled Abs Immat Gran (auto) Cancelled Absolute Neuts (auto) Cancelled Absolute Nucleated RBC 0.000 Nucleated RBC % (auto) 0.0 Neutrophils % (Manual) 60 Band Neutrophils % 7 H Lymphocytes % (Manual) 19 L Monocytes % (Manual) 3 Eosinophils % (Manual) 9 H Basophils % (Manual) 1 Metamyelocytes % 1 Abs Neuts (Manual) 11.9 H Lymphocytes # (Manual) 3.4 Monocytes # (Manual) 0.5 Eosinophils # (Manual) 1.6 H Basophils # (Manual) 0.2 Metamyelocytes # 0.2 Smudge Cells PRESENT Platelet Estimate NORMAL Large Platelets PRESENT Plt Morphology Comment NOTED RBC Morphology NOTED Polychromasia 1+ (0-2) Hypochromasia 1+ (5-14) Basophilic Stippling 1+ (0-2) Target Cells 1+ (5-14) Tear Drop Cells 1+ (0-2) [place] Bodies PRESENT VBG pH 7.45 H VBG pCO2 34 VBG pO2 50 VBG HCO3 24 VBG O2 Saturation 83.0 VBG Base Excess 0.9 Sodium 142 Potassium 5.3 H Chloride 101 Carbon Dioxide 21 L Anion Gap 25 H BUN 137 H Creatinine 8.82 H* Estim Creat Clear Calc 10.3 Estimated GFR 6 Random Glucose 95 Calcium 8.7 Phosphorus 7.3 H Magnesium 2.5 Albumin 3.2 L Blood Type O Positive Antibody Screen NEGATIVE Crossmatch See Detail Microbiology Microbiology Results: Microbiology 08/20/23 16:53 Lung - Suctioned Gram Stain - Final 08/20/23 16:53 Lung - Suctioned Sputum Culture - Final Stefanie albicans Stefanie dubliniensis 08/19/23 02:59 Blood - Venous Blood Culture - Final Propionibacterium acnes 08/19/23 02:59 Blood - Venous Blood Culture - Final Propionibacterium acnes 08/19/23 Unknown Urine Catheterized - Bess Catheter Urine Culture - Final No growth. Progress Note: A&P Assessment and plan (1) Polysubstance abuse: Status: Acute (2) Aspiration pneumonia: Status: Acute (3) Acute hypoxemic respiratory failure: Status: Acute (4) NAOMI (acute kidney injury): Status: Acute (5) Rhabdomyolysis: Status: Acute Plan Assessment: 53-year-old male admitted with encephalopathy and rhabdomyolysis with NAOMI secondary to polysubstance abuse further complicated by pulmonary aspiration and shock requiring ventilatory support Plan: Neuro: Encephalopathy, likely secondary to polysubstance abuse. Cardiac: Septic shock on the background of pulmonary aspiration/pneumonitis, continue to titrate off pressor support as tolerated. Pulmonary: Acute hypoxic respiratory failure on the background pulmonary aspiration and pulmonary edema from rhabdomyolysis. Continue to titrate off ventilatory support as tolerated. Renal: Acute renal failure secondary to rhabdomyolysis, worsening. Non oliguric. Continue to monitor renal indices and urine output. Continue on diuretic drip. May require hemodialysis. Endo: No acute issues. GI: No acute issues. ID: Empiric coverage for pulmonary aspiration. Heme/Onc: No acute issues. Psych: No acute issues. Underlying schizoaffective disorder. Miscellaneous: No acute issues. Prophylaxis: Heparin, ppi Diet: Tube feeds Critical care time spent: 60 minutes Quality Stroke Does the patient have a stroke diagnosis?: No VTE Prior VTE?: No VTE Risk Level:: Medical - low VTE Device Contraindication: N/A - Device Ordered VTE Drug Contraindication: N/A - Med Ordered
[2023-08-30] MEDS: Bumetanide 25 MG in Container,Empty 0 ML 4 MG IVCONT (11:25)
[2023-08-30] MEDS: dexmedeTOMIDidine HCL/NS 400 MCG/100 ML INFUS..BTL 22.2 MCG IVCONT (20:53)
[2023-08-30] MEDS: Albuterol Sulfate (0.083%) 2.5 MG/3 ML VIAL.NEB INHALE (21:31)
[2023-08-30] MEDS: Cisatracurium Besylate 20 MG/10 ML VIAL IVPUSH (22:04)
[2023-08-31] VITALS (30 sets, daily range): BP systolic 107–152; BP diastolic 54–76; PULSE 79–102; RESP 16–27; TEMP 34.6–38.1; O2SAT 91–100; BMI 30.2
[2023-08-31] MEDS: propofoL 1,000 MG/100 ML VIAL 25.2 MG IVCONT ×3 (00:57→08:08)
[2023-08-31] MEDS: dexmedeTOMIDidine HCL/NS 400 MCG/100 ML INFUS..BTL 22.2 MCG IVCONT ×4 (01:09→14:17)
[2023-08-31] MEDS: fentaNYL citrate/NS 1,000 MCG/100 ML PLAST..BAG 12.5 MCG IVCONT (03:28)
[2023-08-31] MEDS: Heparin Sodium,Porcine 5,000 UNIT/ML VIAL 5000 UNIT SUBCUT ×3 (03:28→18:21)
[2023-08-31 04:57] LABS: Basophils Absolute Auto 0.1 X10*3/uL (0.0-0.2); Basophils Percent Auto 0.3 % (0-2); Eosinophils Absolute Auto 2.1 X10*3/uL (0.0-0.4); Eosinophils Percent Auto 11.1 % (0-4); Hematocrit 22.5 % (42.0-52.0); Hemoglobin 7.8 g/dl (14.0-18.0); Imm Gran Abs Auto 0.85 X10*3/uL (0.00-0.03); Imm Gran Pct Auto 4.6 % (0.0-0.4); Lymphocytes Absolute Auto 2.4 X10*3/uL (1.2-4.9); Lymphocytes Percent Auto 13.1 % (20-40); MANUAL DIFF FLAG SCAN; Mean Corpuscular HGB Conc 34.7 g/dl (31.0-36.0); Mean Corpuscular Hemoglobin 29.2 pg (27.0-33.0); Mean Corpuscular Volume 84.3 fL (80.0-98.0); Mean Platelet Volume 10.1 fL (9.4-12.4); Monocytes Absolute Auto 0.9 X10*3/uL (0.1-1.2); Monocytes Percent Auto 4.8 % (2-11); Neutrophils Absolute Auto 12.2 x10*3/uL (2.0-8.3); Neutrophils Percent Auto 66.1 % (45-73); Platelet Count 402 X10*3/uL (160-400); Red Blood Count 2.67 X10*6/uL (4.60-5.80); Red Cell Distribution Width 17.9 % (11.0-16.0); SCAN SMEAR FLAG 1; White Blood Count 18.4 X10*3/uL (4.8-10.8)
[2023-08-31 05:04] LABS: VBG HCO3 23 mmol/L (22-26); VBG pCO2 30 mmHg; VBG pH 7.48 (7.32-7.43); VBG pO2 52 mmHg
[2023-08-31 05:05] LABS: Venous Blood Gas Refer to POC result
[2023-08-31 05:15] LABS: Albumin Level 3.1 g/dL (3.5-5.0); Anion Gap 28 (12-20); Calcium 8.7 mg/dL (8.4-10.2); Carbon Dioxide 20 mmol/L (22-29); Chloride 99 mmol/L (96-108); Creatinine Clr Calc Pharmacy 10.5; Estimated Glomerular Filt Rate 6; Glucose Random 91 mg/dL (60-115); Magnesium 2.4 mg/dL (1.6-2.6); Phosphorus 8.3 mg/dL (2.7-4.5); Potassium 5.1 mmol/L (3.3-5.1); Sodium 142 mmol/L (135-145)
[2023-08-31 05:21] LABS: SLIDE REVIEW VERIFIED
[2023-08-31 05:22] LABS: Blood Urea Nitrogen 138 mg/dL (9-16)
[2023-08-31] MEDS: Piperacillin Sodium/Tazobactam 2.25 GM in 0.9 % Sodium Chloride 50 ML IV ×3 (05:30→22:23)
[2023-08-31] MEDS: Omeprazole/Na Bicarb Oral Susp 20 MG/10 ML UD Cup 40 MG PO (05:31)
[2023-08-31] MEDS: 0.9 % Sodium Chloride Flush 3 ML SYRINGE IVFLUSH ×2 (07:31→15:39)
[2023-08-31] MEDS: Chlorhexidine Gluc Oral Rinse 15 ML MOUTHWASH BUCCAL ×3 (07:31→21:03)
[2023-08-31] MEDS: Bumetanide 25 MG in Container,Empty 0 ML 4 MG IVCONT (10:48)
[2023-08-31] MEDS: Albumin Human 25 % 100 ML IV ×3 (10:48→22:23)
--- NOTE | 2023-08-31 11:43 | P.PNCC_ITS ---
Subjective Subjective Date of Service: 08/31/23 Interval History: 53-year-old gentleman with underlying history of polysubstance abuse, schizoaffective disorder, achalasia status post myotomy admitted on 08/19/2023 with unresponsiveness on the background of polysubstance abuse and rhabdomyolysis with acute kidney failure requiring intubation and ventilatory support. Hospital course also complicated by septic shock and acute hypoxic respiratory failure secondary to pulmonary edema. No events overnight. Renal function worsening has plateaued. Critical Care Time (minutes): 60 Physical Exam 2 Vital Signs: Vital Signs: Last Vital Signs Temp 99.5 F 08/31/23 11:00 Pulse 92 08/31/23 11:00 Resp 18 08/31/23 11:00 BP 128/69 08/31/23 11:00 Pulse Ox 100 08/31/23 11:00 O2 Del Method Mechanical Ventil ation 08/31/23 11:00 O2 Flow Rate 40 08/26/23 03:00 FiO2 40 08/31/23 11:00 BMI result Body Mass Index 30.2 Const: General: no acute distress and other (Sedated on the vent) N utritional Appearance: obese Eyes: Sclerae: sclerae normal EOM: EOMs intact bilaterally Neck: Neck: Yes no lymphadenopathy, Yes trachea midline and Yes supple Resp: Auscultation: crackles (bilateral) Cardio: Rate: regular rate Rhythm: regular rhythm Heart sounds: no gallops, no murmurs and no rubs GI: Palpation (GI): Soft to palpation and Other GI palpation findings present ( Nontender) Auscultation: normal bowel sounds Extrem: General: No clubbing, No cyanosis and Yes edema (1+ bilateral) Objective Data Labs 08/31/23 04:49 08/31/23 04:49 Labs: Laboratory Results - last 24 hr 08/30/23 08/31/23 08/31/23 06:13 04:49 04:55 WBC 18.4 H RBC 2.67 L Hgb 7.8 L Hct 22.5 L D MCV 84.3 MCH 29.2 MCHC 34.7 RDW 17.9 H Plt Count 402 H D MPV 10.1 Immature Gran % (Auto) 4.6 H Neut % (Auto) 66.1 Lymph % (Auto) 13.1 L [place] % (Auto) 4.8 Eos % (Auto) 11.1 H Baso % (Auto) 0.3 Lymph # (Auto) 2.4 [place] # (Auto) 0.9 Eos # (Auto) 2.1 H Baso # (Auto) 0.1 Abs Immat Gran (auto) 0.85 H Absolute Neuts (auto) 12.2 H Absolute Nucleated RBC 0.000 Nucleated RBC % (auto) 0.0 Smear Tech's Comments VERIFIED VBG pH 7.48 H VBG pCO2 30 VBG pO2 52 VBG HCO3 23 VBG O2 Saturation 87.0 VBG Base Excess 0.0 Sodium 142 Potassium 5.1 Chloride 99 Carbon Dioxide 20 L Anion Gap 28 H BUN 138 H Creatinine 8.68 H* Estim Creat Clear Calc 10.5 Estimated GFR 6 Random Glucose 91 Calcium 8.7 Phosphorus 8.3 H Magnesium 2.4 Albumin 3.1 L Crossmatch See Detail Microbiology Microbiology Results: Microbiology 08/20/23 16:53 Lung - Suctioned Gram Stain - Final 08/20/23 16:53 Lung - Suctioned Sputum Culture - Final Stefanie albicans Stefanie dubliniensis 08/19/23 02:59 Blood - Venous Blood Culture - Final Propionibacterium acnes 08/19/23 02:59 Blood - Venous Blood Culture - Final Propionibacterium acnes 08/19/23 Unknown Urine Catheterized - Bess Catheter Urine Culture - Final No growth. Progress Note: A&P Assessment and plan (1) Polysubstance abuse: Status: Acute (2) Aspiration pneumonia: Status: Acute (3) Acute hypoxemic respiratory failure: Status: Acute (4) NAOMI (acute kidney injury): Status: Acute (5) Rhabdomyolysis: Status: Acute Plan Assessment: 53-year-old male admitted with encephalopathy and rhabdomyolysis with NAOMI secondary to polysubstance abuse further complicated by pulmonary aspiration and shock requiring ventilatory support Plan: Neuro: Encephalopathy, likely secondary to polysubstance abuse. Cardiac: Septic shock on the background of pulmonary aspiration/pneumonitis, continue to titrate off pressor support as tolerated. Pulmonary: Acute hypoxic respiratory failure on the background pulmonary aspiration and pulmonary edema from rhabdomyolysis. Continue to titrate off ventilatory support as tolerated. Renal: Acute renal failure secondary to rhabdomyolysis, plateaued. Non oliguric. Continue to monitor renal indices and urine output. Continue on diuretic drip. May require hemodialysis. Endo: No acute issues. GI: No acute issues. ID: Empiric coverage for pulmonary aspiration. Heme/Onc: No acute issues. Psych: No acute issues. Underlying schizoaffective disorder. Miscellaneous: No acute issues. Prophylaxis: Heparin, ppi Diet: Tube feeds Critical care time spent: 60 minutes Quality Stroke Does the patient have a stroke diagnosis?: No VTE Prior VTE?: No VTE Risk Level:: Medical - low VTE Device Contraindication: N/A - Device Ordered VTE Drug Contraindication: N/A - Med Ordered
--- NOTE | 2023-08-31 12:04 | MHC.CLN ---
F/U PT REMAINS INTUBATED AND SEDATED REVIEWED LABS. MD MONITORING KIDNEY FUNCTION. TUBE FEED RUNNING WITH NEPRO AT MAX GOAL RATE 35ML/HR TO PROVIDE 1512KCALS (1778KCALS WITH SEDATION; 23.7KCALS/KG CMW), 68G PROTEIN, 610ML FREE WATER FROM FORMULA. HOLD FREE WATER FLUSHES AT THIS TIME. CONTINUE CURRENT TUBE FEED ORDER. FOLLOW WITH TEAM. MONITOR TOLERANCE AND LYTES.
[2023-08-31] MEDS: fentaNYL citrate/NS 1,000 MCG/100 ML PLAST..BAG 5 MCG IVCONT (14:16)
[2023-08-31] MEDS: dexmedeTOMIDidine HCL/NS 400 MCG/100 ML INFUS..BTL 26.64 MCG IVCONT (18:18)
[2023-08-31] MEDS: dexmedeTOMIDidine HCL/NS 400 MCG/100 ML INFUS..BTL 33.3 MCG IVCONT ×2 (21:03→23:50)
[2023-09-01] VITALS (33 sets, daily range): BP systolic 137–159; BP diastolic 60–81; PULSE 83–122; RESP 16–46; TEMP 34.7–38.6; O2SAT 93–100; BMI 29.7
[2023-09-01] MEDS: fentaNYL citrate/NS 1,000 MCG/100 ML PLAST..BAG 10 MCG IVCONT (02:17)
[2023-09-01] MEDS: Heparin Sodium,Porcine 5,000 UNIT/ML VIAL 5000 UNIT SUBCUT ×3 (02:18→19:49)
[2023-09-01] MEDS: dexmedeTOMIDidine HCL/NS 400 MCG/100 ML INFUS..BTL 33.3 MCG IVCONT ×2 (02:18→05:46)
[2023-09-01] MEDS: Albumin Human 25 % 100 ML IV (04:29)
[2023-09-01 05:26] LABS: VBG Base Excess -0.1 mmol/L; VBG HCO3 22 mmol/L (22-26); VBG pCO2 30 mmHg; VBG pH 7.47 (7.32-7.43); VBG pO2 50 mmHg
[2023-09-01 05:45] LABS: MANUAL DIFF FLAG NO
[2023-09-01] MEDS: Omeprazole/Na Bicarb Oral Susp 20 MG/10 ML UD Cup 40 MG PO (05:46)
[2023-09-01] MEDS: Piperacillin Sodium/Tazobactam 2.25 GM in 0.9 % Sodium Chloride 50 ML IV ×3 (05:46→22:38)
[2023-09-01 05:50] LABS: Venous Blood Gas Refer to POC result
[2023-09-01 05:51] LABS: Basophils Absolute Auto 0.1 X10*3/uL (0.0-0.2); Basophils Percent Auto 0.4 % (0-2); Eosinophils Absolute Auto 1.9 X10*3/uL (0.0-0.4); Eosinophils Percent Auto 11.7 % (0-4); Hematocrit 21.9 % (42.0-52.0); Hemoglobin 7.5 g/dl (14.0-18.0); Imm Gran Abs Auto 0.52 X10*3/uL (0.00-0.03); Imm Gran Pct Auto 3.1 % (0.0-0.4); Lymphocytes Absolute Auto 1.7 X10*3/uL (1.2-4.9); Lymphocytes Percent Auto 10.3 % (20-40); Mean Corpuscular HGB Conc 34.2 g/dl (31.0-36.0); Mean Corpuscular Hemoglobin 28.8 pg (27.0-33.0); Mean Corpuscular Volume 84.2 fL (80.0-98.0); Mean Platelet Volume 10.8 fL (9.4-12.4); Monocytes Absolute Auto 0.7 X10*3/uL (0.1-1.2); Monocytes Percent Auto 4.5 % (2-11); Neutrophils Absolute Auto 11.6 x10*3/uL (2.0-8.3); Platelet Count 458 X10*3/uL (160-400); Red Cell Distribution Width 18.1 % (11.0-16.0); White Blood Count 16.5 X10*3/uL (4.8-10.8)
[2023-09-01 06:18] LABS: Alanine Aminotransferase 29 U/L (0-40); Albumin Level 3.9 g/dL (3.5-5.0); Alkaline Phosphatase 175 U/L (39-117); Anion Gap 30 (12-20); Aspartate Amino Transferase 35 U/L (5-37); Bilirubin Total 0.8 mg/dL (0.0-1.0); Carbon Dioxide 20 mmol/L (22-29); Chloride 100 mmol/L (96-108); Creatinine Clr Calc Pharmacy 10.8; Estimated Glomerular Filt Rate 7; Glucose Random 126 mg/dL (60-115); Magnesium 2.4 mg/dL (1.6-2.6); Phosphorus 9.2 mg/dL (2.7-4.5); Potassium 4.1 mmol/L (3.3-5.1); Sodium 146 mmol/L (135-145); Total Protein 7.3 g/dL (6.5-8.0)
[2023-09-01 06:24] LABS: Blood Urea Nitrogen 141 mg/dL (9-16)
[2023-09-01] MEDS: 0.9 % Sodium Chloride Flush 3 ML SYRINGE IVFLUSH ×2 (08:30→15:06)
[2023-09-01] MEDS: Chlorhexidine Gluc Oral Rinse 15 ML MOUTHWASH BUCCAL ×3 (08:30→20:08)
[2023-09-01] MEDS: Nystatin Cream 15 GM TUBE 1 APPL TOPICAL ×2 (08:31→20:08)
[2023-09-01] MEDS: dexmedeTOMIDidine HCL/NS 400 MCG/100 ML INFUS..BTL 28.86 MCG IVCONT (08:56)
--- NOTE | 2023-09-01 08:57 | P.PNCC_ITS ---
Subjective Subjective Date of Service: 09/01/23 Interval History: 53-year-old gentleman with underlying history of polysubstance abuse, schizoaffective disorder, achalasia status post myotomy admitted on 08/19/2023 with unresponsiveness on the background of polysubstance abuse and rhabdomyolysis with acute kidney failure requiring intubation and ventilatory support. Hospital course also complicated by septic shock and acute hypoxic respiratory failure secondary to pulmonary edema. No events overnight. Renal function worsening has plateaued. Critical Care Time (minutes): 60 Physical Exam 2 Vital Signs: Vital Signs: Last Vital Signs Temp 100.4 F 09/01/23 08:00 Pulse 85 09/01/23 08:00 Resp 18 09/01/23 08:00 BP 152/74 H 09/01/23 08:00 Pulse Ox 95 09/01/23 08:00 O2 Del Method Mechanical Ventil ation 09/01/23 08:00 O2 Flow Rate 40 08/26/23 03:00 FiO2 30 09/01/23 08:00 BMI result Body Mass Index 29.7 Const: General: no acute distress and other (Sedated on the vent) N utritional Appearance: obese Eyes: Sclerae: sclerae normal EOM: EOMs intact bilaterally Neck: Neck: Yes no lymphadenopathy, Yes trachea midline and Yes supple Resp: Auscultation: clear to auscultation bilaterally Cardio: Rate: regular rate Rhythm: regular rhythm Heart sounds: no gallops, no murmurs and no rubs GI: Palpation (GI): Soft to palpation and Other GI palpation findings present ( Nontender) Auscultation: normal bowel sounds Extrem: General: No clubbing, No cyanosis and Yes edema (1+ bilateral) Objective Data Labs 09/01/23 05:17 09/01/23 05:17 Labs: Laboratory Results - last 24 hr 09/01/23 05:17 WBC 16.5 H RBC 2.60 L Hgb 7.5 L Hct 21.9 L MCV 84.2 MCH 28.8 MCHC 34.2 RDW 18.1 H Plt Count 458 H MPV 10.8 Immature Gran % (Auto) 3.1 H Neut % (Auto) 70.0 Lymph % (Auto) 10.3 L [place] % (Auto) 4.5 Eos % (Auto) 11.7 H Baso % (Auto) 0.4 Lymph # (Auto) 1.7 [place] # (Auto) 0.7 Eos # (Auto) 1.9 H Baso # (Auto) 0.1 Abs Immat Gran (auto) 0.52 H Absolute Neuts (auto) 11.6 H Absolute Nucleated RBC 0.000 Nucleated RBC % (auto) 0.0 VBG pH 7.47 H VBG pCO2 30 VBG pO2 50 VBG HCO3 22 VBG O2 Saturation 79.0 VBG Base Excess -0.1 Sodium 146 H Potassium 4.1 Chloride 100 Carbon Dioxide 20 L Anion Gap 30 H BUN 141 H Creatinine 8.35 H* Estim Creat Clear Calc 10.8 Estimated GFR 7 Random Glucose 126 H Calcium 9.0 Phosphorus 9.2 H Magnesium 2.4 Total Bilirubin 0.8 AST 35 ALT 29 Alkaline Phosphatase 175 H Total Protein 7.3 Albumin 3.9 Microbiology Microbiology Results: Microbiology 08/20/23 16:53 Lung - Suctioned Gram Stain - Final 08/20/23 16:53 Lung - Suctioned Sputum Culture - Final Stefanie albicans Stefanie dubliniensis 08/19/23 02:59 Blood - Venous Blood Culture - Final Propionibacterium acnes 08/19/23 02:59 Blood - Venous Blood Culture - Final Propionibacterium acnes 08/19/23 Unknown Urine Catheterized - Bess Catheter Urine Culture - Final No growth. Progress Note: A&P Assessment and plan (1) Polysubstance abuse: Status: Acute (2) Aspiration pneumonia: Status: Acute (3) Acute hypoxemic respiratory failure: Status: Acute (4) NAOMI (acute kidney injury): Status: Acute (5) Rhabdomyolysis: Status: Acute (6) Multifocal pneumonia: Status: Acute Plan Assessment: 53-year-old male admitted with encephalopathy and rhabdomyolysis with NAOMI secondary to polysubstance abuse further complicated by pulmonary aspiration and shock requiring ventilatory support Plan: Neuro: Encephalopathy, likely secondary to polysubstance abuse. Cardiac: Septic shock on the background of pulmonary aspiration/pneumonitis, continue to titrate off pressor support as tolerated. Pulmonary: Acute hypoxic respiratory failure on the background pulmonary aspiration and pulmonary edema from rhabdomyolysis. Continue to titrate off ventilatory support as tolerated. Renal: Acute renal failure secondary to rhabdomyolysis, plateaued. Non oliguric. Continue to monitor renal indices and urine output. Continue on diuretic drip. May require hemodialysis. Endo: No acute issues. GI: No acute issues. ID: Empiric coverage for pulmonary aspiration. Heme/Onc: No acute issues. Psych: No acute issues. Underlying schizoaffective disorder. Miscellaneous: No acute issues. Prophylaxis: Heparin, ppi Diet: Tube feeds Critical care time spent: 60 minutes Quality Stroke Does the patient have a stroke diagnosis?: No VTE Prior VTE?: No VTE Risk Level:: Medical - low VTE Device Contraindication: N/A - Device Ordered VTE Drug Contraindication: N/A - Med Ordered
--- NOTE | 2023-09-01 10:03 | MHC.CLN ---
F/U PT REMAINS INTUBATED REVIEWED LABS NOTED SLIGHTLY ELEVATED SERUM NA DISCUSSED AT ROUNDS WITH MD-PLAN TO HOLD FWF AT THIS TIME MD MONITORING KIDNEY FUNCTION TUBE FEED RUNNING WITH NEPRO AT MAX GOAL RATE 35ML/HR PROVIDES 1512KCALS, 68G PROTEIN, 610ML FREE WATER FROM FORMULA CONTINUE CURRENT TUBE FEED ORDER CONTINUE TO MONITOR TOLERANCE AND LYTES
[2023-09-01] MEDS: Bumetanide 25 MG in Container,Empty 0 ML 4 MG IVCONT (10:16)
--- NOTE | 2023-09-01 13:00 | MHC.CM.PN ---
Pt continues care in ICU: remains on ventilatory support while diuresing: still 20 liters +. Per MD, renal dysfunction has plateaued and may improve w/continued diuresis. Plans are to extubate if pts alertness improves - at this time, he is not tracking or following commands. Pt does not have a finalized d/c plan as his overall condition is not clear at this time. CM to follow.
[2023-09-01] MEDS: fentaNYL citrate/NS 1,000 MCG/100 ML PLAST..BAG 7.5 MCG IVCONT (13:39)
[2023-09-01] MEDS: Midazolam HCl/PF 2 MG/2 ML VIAL IVPUSH ×2 (20:17→22:55)
[2023-09-02] VITALS (30 sets, daily range): BP systolic 138–175; BP diastolic 77–93; PULSE 90–111; RESP 18–20; TEMP -12.2–38; O2SAT 95–98; BMI 29.3
[2023-09-02] MEDS: fentaNYL citrate/NS 1,000 MCG/100 ML PLAST..BAG 12.5 MCG IVCONT
[2023-09-02] MEDS: Heparin Sodium,Porcine 5,000 UNIT/ML VIAL 5000 UNIT SUBCUT ×3 (02:13→17:31)
[2023-09-02 05:52] LABS: VBG Base Excess 2.6 mmol/L; VBG HCO3 24 mmol/L (22-26); VBG pCO2 30 mmHg; VBG pH 7.51 (7.32-7.43); VBG pO2 57 mmHg
[2023-09-02] MEDS: Omeprazole/Na Bicarb Oral Susp 20 MG/10 ML UD Cup 40 MG PO (05:52)
[2023-09-02] MEDS: Piperacillin Sodium/Tazobactam 2.25 GM in 0.9 % Sodium Chloride 50 ML IV ×3 (05:52→22:35)
[2023-09-02 06:06] LABS: Venous Blood Gas Refer to POC result
[2023-09-02 06:39] LABS: MANUAL DIFF FLAG NO
[2023-09-02 06:40] LABS: Basophils Absolute Auto 0.1 X10*3/uL (0.0-0.2); Basophils Percent Auto 0.7 % (0-2); Eosinophils Absolute Auto 1.3 X10*3/uL (0.0-0.4); Eosinophils Percent Auto 7.5 % (0-4); Hematocrit 24.3 % (42.0-52.0); Hemoglobin 8.5 g/dl (14.0-18.0); Imm Gran Abs Auto 0.52 X10*3/uL (0.00-0.03); Imm Gran Pct Auto 2.9 % (0.0-0.4); Lymphocytes Absolute Auto 1.7 X10*3/uL (1.2-4.9); Lymphocytes Percent Auto 9.6 % (20-40); Mean Corpuscular Hemoglobin 29.4 pg (27.0-33.0); Mean Corpuscular Volume 84.1 fL (80.0-98.0); Monocytes Absolute Auto 1.1 X10*3/uL (0.1-1.2); Monocytes Percent Auto 6.1 % (2-11); Neutrophils Percent Auto 73.2 % (45-73); Platelet Count 595 X10*3/uL (160-400); Red Blood Count 2.89 X10*6/uL (4.60-5.80); Red Cell Distribution Width 18.5 % (11.0-16.0); White Blood Count 17.8 X10*3/uL (4.8-10.8)
[2023-09-02 07:11] LABS: Anion Gap 28 (12-20); Calcium 9.8 mg/dL (8.4-10.2); Carbon Dioxide 24 mmol/L (22-29); Chloride 100 mmol/L (96-108); Glucose Random 137 mg/dL (60-115); Magnesium 2.6 mg/dL (1.6-2.6); Phosphorus 8.4 mg/dL (2.7-4.5); Potassium 3.2 mmol/L (3.3-5.1); Sodium 149 mmol/L (135-145)
[2023-09-02 07:14] LABS: Creatinine Clr Calc Pharmacy 10.7; Estimated Glomerular Filt Rate 7
[2023-09-02 07:21] LABS: Blood Urea Nitrogen 147 mg/dL (9-16)
[2023-09-02] MEDS: fentaNYL citrate/NS 1,000 MCG/100 ML PLAST..BAG 10 MCG IVCONT ×2 (07:33→18:12)
[2023-09-02] MEDS: Chlorhexidine Gluc Oral Rinse 15 ML MOUTHWASH BUCCAL ×3 (07:36→20:13)
[2023-09-02] MEDS: 0.9 % Sodium Chloride Flush 3 ML SYRINGE IVFLUSH ×4 (07:40→23:07)
[2023-09-02] MEDS: Nystatin Cream 15 GM TUBE 1 APPL TOPICAL ×2 (07:41→20:13)
--- NOTE | 2023-09-02 09:46 | P.PNCC_ITS ---
Subjective Subjective Date of Service: 09/02/23 Interval History: 53-year-old gentleman with underlying history of polysubstance abuse, schizoaffective disorder, achalasia status post myotomy admitted on 08/19/2023 with unresponsiveness on the background of polysubstance abuse and rhabdomyolysis with acute kidney failure requiring intubation and ventilatory support. Hospital course also complicated by septic shock and acute hypoxic respiratory failure secondary to pulmonary edema. No events overnight. Renal function improving. Now with significantly negative daily fluid balance. Though, with poor arousal with sedation vacation. Critical Care Time (minutes): 60 Physical Exam 2 Vital Signs: Vital Signs: Last Vital Signs Temp 99.3 F 09/02/23 09:00 Pulse 102 H 09/02/23 09:00 Resp 18 09/02/23 09:00 BP 138/78 09/02/23 09:00 Pulse Ox 97 09/02/23 09:00 O2 Del Method Mechanical Ventil ation 09/02/23 09:00 O2 Flow Rate 40 08/26/23 03:00 FiO2 30 09/02/23 09:00 BMI result Body Mass Index 29.3 Const: General: no acute distress and other (Poor arousal with sedation vacation) Nutritional Appearance: obese Eyes: Sclerae: sclerae normal EOM: EOMs intact bilaterally Neck: Neck: Yes no lymphadenopathy, Yes trachea midline and Yes supple Resp: Auscultation: clear to auscultation bilaterally Cardio: Rate: regular rate Rhythm: regular rhythm Heart sounds: no gallops, no murmurs and no rubs GI: Palpation (GI): Soft to palpation and Other GI palpation findings present ( Nontender) Auscultation: normal bowel sounds Extrem: General: No clubbing, No cyanosis and Yes edema (1+ bilateral) Objective Data Labs 09/02/23 05:46 09/02/23 05:46 Labs: Laboratory Results - last 24 hr 09/02/23 09/02/23 05:45 05:46 WBC 17.8 H RBC 2.89 L Hgb 8.5 L Hct 24.3 L MCV 84.1 MCH 29.4 MCHC 35.0 RDW 18.5 H Plt Count 595 H D MPV 11.0 Immature Gran % (Auto) 2.9 H Neut % (Auto) 73.2 H Lymph % (Auto) 9.6 L [place] % (Auto) 6.1 Eos % (Auto) 7.5 H Baso % (Auto) 0.7 Lymph # (Auto) 1.7 [place] # (Auto) 1.1 Eos # (Auto) 1.3 H Baso # (Auto) 0.1 Abs Immat Gran (auto) 0.52 H Absolute Neuts (auto) 13.0 H Absolute Nucleated RBC 0.000 Nucleated RBC % (auto) 0.0 VBG pH 7.51 H VBG pCO2 30 VBG pO2 57 VBG HCO3 24 VBG O2 Saturation 87.0 VBG Base Excess 2.6 Sodium 149 H Potassium 3.2 L D Chloride 100 Carbon Dioxide 24 Anion Gap 28 H BUN 147 H Creatinine 8.31 H* Estim Creat Clear Calc 10.7 Estimated GFR 7 Random Glucose 137 H Calcium 9.8 D Phosphorus 8.4 H Magnesium 2.6 Albumin 4.0 Microbiology Microbiology Results: Microbiology 08/20/23 16:53 Lung - Suctioned Gram Stain - Final 08/20/23 16:53 Lung - Suctioned Sputum Culture - Final Stefanie albicans Stefanie dubliniensis 08/19/23 02:59 Blood - Venous Blood Culture - Final Propionibacterium acnes 08/19/23 02:59 Blood - Venous Blood Culture - Final Propionibacterium acnes 08/19/23 Unknown Urine Catheterized - Bess Catheter Urine Culture - Final No growth. Progress Note: A&P Assessment and plan (1) Polysubstance abuse: Status: Acute (2) Aspiration pneumonia: Status: Acute (3) Acute hypoxemic respiratory failure: Status: Acute (4) NAOMI (acute kidney injury): Status: Acute (5) Multifocal pneumonia: Status: Acute Plan Assessment: 53-year-old male admitted with encephalopathy and rhabdomyolysis with NAOMI secondary to polysubstance abuse further complicated by pulmonary aspiration and shock requiring ventilatory support Plan: Neuro: Encephalopathy, likely secondary to polysubstance abuse. Poor arousal with sedation vacation, if not improving will consider MRI. Cardiac: Septic shock on the background of pulmonary aspiration/pneumonitis, continue to titrate off pressor support as tolerated. Pulmonary: Acute hypoxic respiratory failure on the background pulmonary aspiration and pulmonary edema from rhabdomyolysis. Continue to titrate off ventilatory support as tolerated. Renal: Acute renal failure secondary to rhabdomyolysis, improving. Non oliguric. Continue to monitor renal indices and urine output. Continue on diuretic drip. May require hemodialysis. Endo: No acute issues. GI: No acute issues. ID: Empiric coverage for pulmonary aspiration. Heme/Onc: No acute issues. Psych: No acute issues. Underlying schizoaffective disorder. Miscellaneous: No acute issues. Prophylaxis: Heparin, ppi Diet: Tube feeds Critical care time spent: 60 minutes Quality Stroke Does the patient have a stroke diagnosis?: No VTE Prior VTE?: No VTE Risk Level:: Medical - low VTE Device Contraindication: N/A - Device Ordered VTE Drug Contraindication: N/A - Med Ordered
--- NOTE | 2023-09-02 10:11 | MHC.CLN ---
F/U PT REMAINS INTUBATED REVIEWED LABS NOTED INCREASING SERUM NA DISCUSSED AT ROUNDS WITH MD-PLAN TO HOLD FWF AT THIS TIME MD MONITORING KIDNEY FUNCTION AND FLUID OVERLOAD TUBE FEED RUNNING WITH NEPRO AT MAX GOAL RATE 35ML/HR PROVIDING 1512KCALS, 68G PROTEIN, 610ML FREE WATER FROM FORMULA TOLERATING TF AT GOAL WITH LOW RESIDUALS PER NSG CONTINUE TO MONITOR TOLERANCE AND LYTES
[2023-09-02] MEDS: Potassium Chloride/H20 40 MEQ/100 ML PIGGYBACK 100 MEQ IV ×2 (10:23→11:32)
[2023-09-02] MEDS: Bumetanide 25 MG in Container,Empty 0 ML 4 MG IVCONT (11:01)
--- NOTE | 2023-09-02 13:35 | MHC.CM.PN ---
Patient remains intubated in ICU. He is not following commands. Per RN, tracking is inconsistent. Plan is to decrease Fentanyl today. DP Will be determined by the patients recovery. CM will follow.
[2023-09-02 18:33] LABS: Anion Gap 32 (12-20); Carbon Dioxide 24 mmol/L (22-29); Chloride 101 mmol/L (96-108); Creatinine Clr Calc Pharmacy 11.2; Estimated Glomerular Filt Rate 7; Glucose Random 145 mg/dL (60-115); Potassium 3.5 mmol/L (3.3-5.1); Sodium 153 mmol/L (135-145)
[2023-09-02 18:36] LABS: Blood Urea Nitrogen 145 mg/dL (9-16)
[2023-09-02] MEDS: Potassium Chloride/H20 40 MEQ/100 ML PIGGYBACK 50 MEQ IV (19:55)
[2023-09-02] MEDS: Midazolam HCl/PF 2 MG/2 ML VIAL IVPUSH (20:50)
[2023-09-03] VITALS (33 sets, daily range): BP systolic 114–167; BP diastolic 69–95; PULSE 95–138; RESP 15–21; TEMP -12.4–39.5; O2SAT 94–97; BMI 28.2
[2023-09-03] MEDS: fentaNYL citrate/NS 1,000 MCG/100 ML PLAST..BAG 10 MCG IVCONT (02:55)
[2023-09-03] MEDS: Heparin Sodium,Porcine 5,000 UNIT/ML VIAL 5000 UNIT SUBCUT ×3 (02:58→19:14)
[2023-09-03 05:22] LABS: VBG Base Excess 3.3 mmol/L; VBG HCO3 25 mmol/L (22-26); VBG pCO2 31 mmHg; VBG pH 7.51 (7.32-7.43); VBG pO2 51 mmHg
[2023-09-03 05:35] LABS: Venous Blood Gas Refer to POC result
[2023-09-03 05:53] LABS: Basophils Absolute Auto 0.2 X10*3/uL (0.0-0.2); Basophils Percent Auto 1.1 % (0-2); Eosinophils Absolute Auto 2.1 X10*3/uL (0.0-0.4); Eosinophils Percent Auto 10.3 % (0-4); Hematocrit 27.8 % (42.0-52.0); Hemoglobin 9.4 g/dl (14.0-18.0); Imm Gran Abs Auto 0.62 X10*3/uL (0.00-0.03); MANUAL DIFF FLAG SCAN; Mean Corpuscular HGB Conc 33.8 g/dl (31.0-36.0); Mean Corpuscular Hemoglobin 28.6 pg (27.0-33.0); Mean Corpuscular Volume 84.5 fL (80.0-98.0); Mean Platelet Volume 10.5 fL (9.4-12.4); Monocytes Absolute Auto 1.2 X10*3/uL (0.1-1.2); Neutrophils Absolute Auto 14.2 x10*3/uL (2.0-8.3); Neutrophils Percent Auto 69.6 % (45-73); Platelet Count 685 X10*3/uL (160-400); Red Blood Count 3.29 X10*6/uL (4.60-5.80); Red Cell Distribution Width 18.8 % (11.0-16.0); SCAN SMEAR FLAG 1; White Blood Count 20.4 X10*3/uL (4.8-10.8)
[2023-09-03 05:58] LABS: Ammonia 23 umol/L (13-55)
[2023-09-03 06:11] LABS: SLIDE REVIEW VERIFIED
[2023-09-03 06:15] LABS: Albumin Level 4.2 g/dL (3.5-5.0); Anion Gap 28 (12-20); Calcium 11.1 mg/dL (8.4-10.2); Carbon Dioxide 26 mmol/L (22-29); Chloride 102 mmol/L (96-108); Creatinine Clr Calc Pharmacy 11.4; Estimated Glomerular Filt Rate 7; Glucose Random 163 mg/dL (60-115); Magnesium 2.6 mg/dL (1.6-2.6); Potassium 3.5 mmol/L (3.3-5.1); Sodium 152 mmol/L (135-145)
[2023-09-03 06:18] LABS: Blood Urea Nitrogen 153 mg/dL (9-16)
[2023-09-03] MEDS: Omeprazole/Na Bicarb Oral Susp 20 MG/10 ML UD Cup 40 MG PO (06:18)
[2023-09-03] MEDS: Piperacillin Sodium/Tazobactam 2.25 GM in 0.9 % Sodium Chloride 50 ML IV ×2 (06:18→13:44)
[2023-09-03] MEDS: Potassium Chloride/H20 40 MEQ/100 ML PIGGYBACK 50 MEQ IV (07:47)
[2023-09-03] MEDS: 0.9 % Sodium Chloride Flush 3 ML SYRINGE IVFLUSH ×3 (07:47→21:26)
[2023-09-03] MEDS: Chlorhexidine Gluc Oral Rinse 15 ML MOUTHWASH BUCCAL ×3 (08:28→20:13)
[2023-09-03] MEDS: Nystatin Cream 15 GM TUBE 1 APPL TOPICAL ×2 (08:28→20:14)
[2023-09-03] MEDS: Bumetanide 25 MG in Container,Empty 0 ML 4 MG IVCONT (09:50)
--- NOTE | 2023-09-03 11:32 | P.PNCC_ITS ---
Subjective Subjective Date of Service: 09/03/23 Interval History: 53-year-old gentleman with underlying history of polysubstance abuse, schizoaffective disorder, achalasia status post myotomy admitted on 08/19/2023 with unresponsiveness on the background of polysubstance abuse and rhabdomyolysis with acute kidney failure requiring intubation and ventilatory support. Hospital course also complicated by septic shock and acute hypoxic respiratory failure secondary to pulmonary edema. No events overnight. Renal function continues to improve, though BUN is rising. Now with significantly negative daily fluid balance. Still, with poor arousal with sedation vacation. Critical Care Time (minutes): 60 Physical Exam 2 Vital Signs: Vital Signs: Last Vital Signs Temp 99.3 F 09/03/23 11:00 Pulse 109 H 09/03/23 11:00 Resp 20 09/03/23 11:00 BP 142/87 H 09/03/23 11:00 Pulse Ox 97 09/03/23 11:00 O2 Del Method Mechanical Ventil ation 09/03/23 11:00 O2 Flow Rate 40 08/26/23 03:00 FiO2 30 09/03/23 11:05 BMI result Body Mass Index 28.2 Const: General: no acute distress and other (Poor arousal with sedation vacation) Eyes: Sclerae: sclerae normal EOM: EOMs intact bilaterally Neck: Neck: Yes no lymphadenopathy, Yes trachea midline and Yes supple Resp: Auscultation: clear to auscultation bilaterally Cardio: Rate: tachycardic Rhythm: regular rhythm Heart sounds: no gallops, no murmurs and no rubs GI: Palpation (GI): Soft to palpation and Other GI palpation findings present ( Nontender) Auscultation: normal bowel sounds Extrem: General: No clubbing, No cyanosis and Yes edema (1+ bilateral) Objective Data Labs 09/03/23 05:14 09/03/23 05:14 Labs: Laboratory Results - last 24 hr 09/02/23 09/03/23 18:03 05:14 WBC 20.4 H RBC 3.29 L Hgb 9.4 L Hct 27.8 L MCV 84.5 MCH 28.6 MCHC 33.8 RDW 18.8 H Plt Count 685 H MPV 10.5 Immature Gran % (Auto) 3.0 H Neut % (Auto) 69.6 Lymph % (Auto) 10.0 L [place] % (Auto) 6.0 Eos % (Auto) 10.3 H Baso % (Auto) 1.1 Lymph # (Auto) 2.0 [place] # (Auto) 1.2 Eos # (Auto) 2.1 H Baso # (Auto) 0.2 Abs Immat Gran (auto) 0.62 H Absolute Neuts (auto) 14.2 H Absolute Nucleated RBC 0.000 Nucleated RBC % (auto) 0.0 Smear Tech's Comments VERIFIED VBG pH 7.51 H VBG pCO2 31 VBG pO2 51 VBG HCO3 25 VBG O2 Saturation 78.0 VBG Base Excess 3.3 Sodium 153 H 152 H Potassium 3.5 3.5 Chloride 101 102 Carbon Dioxide 24 26 Anion Gap 32 H 28 H BUN 145 H 153 H Creatinine 7.99 H* 7.71 H* Estim Creat Clear Calc 11.2 11.4 Estimated GFR 7 7 Random Glucose 145 H 163 H Calcium 10.0 11.1 H D Phosphorus 7.0 H Magnesium 2.6 Ammonia 23 Albumin 4.2 Microbiology Microbiology Results: Microbiology 08/20/23 16:53 Lung - Suctioned Gram Stain - Final 08/20/23 16:53 Lung - Suctioned Sputum Culture - Final Stefanie albicans Stefanie dubliniensis 08/19/23 02:59 Blood - Venous Blood Culture - Final Propionibacterium acnes 08/19/23 02:59 Blood - Venous Blood Culture - Final Propionibacterium acnes 08/19/23 Unknown Urine Catheterized - Bess Catheter Urine Culture - Final No growth. Progress Note: A&P Assessment and plan (1) Metabolic encephalopathy: Status: Acute (2) Polysubstance abuse: Status: Acute (3) Aspiration pneumonia: Status: Acute (4) Acute hypoxemic respiratory failure: Status: Acute (5) NAOMI (acute kidney injury): Status: Acute Plan Assessment: 53-year-old male admitted with encephalopathy and rhabdomyolysis with NAOMI secondary to polysubstance abuse further complicated by pulmonary aspiration and shock requiring ventilatory support Plan: Neuro: Encephalopathy, likely secondary to polysubstance abuse. May have uremia component. Poor arousal with sedation vacation will obtain brain MRI. Cardiac: Septic shock on the background of pulmonary aspiration/pneumonitis, resolved. Pulmonary: Acute hypoxic respiratory failure on the background pulmonary aspiration and pulmonary edema from rhabdomyolysis. Continue to titrate off ventilatory support as tolerated. Renal: Acute renal failure secondary to rhabdomyolysis, improving. Non oliguric. Continue to monitor renal indices and urine output. Continue on diuretic drip. May require hemodialysis. Endo: No acute issues. GI: No acute issues. ID: Empiric coverage for pulmonary aspiration. Heme/Onc: No acute issues. Psych: No acute issues. Underlying schizoaffective disorder. Miscellaneous: No acute issues. Prophylaxis: Heparin, ppi Diet: Tube feeds Critical care time spent: 60 minutes Quality Stroke Does the patient have a stroke diagnosis?: No VTE Prior VTE?: No VTE Risk Level:: Medical - low VTE Device Contraindication: N/A - Device Ordered VTE Drug Contraindication: N/A - Med Ordered
--- NOTE | 2023-09-03 13:02 | MHC.CM.PN ---
Pt continues on ventilatory support while diuresing. Renal fx w/slightly worsening BUN but better creatinine. Plan for the day are an MRI as pt is not responsive to commands. Final d/c disposition remains undetermined pending clinical stability. CM to follow
[2023-09-03] MEDS: fentaNYL citrate/NS 1,000 MCG/100 ML PLAST..BAG 7.5 MCG IVCONT (13:44)
--- NOTE | 2023-09-03 15:23 | PC.NURSE ---
Patient not a candidate for primofit d/t pts anatomy. Dr Pittman notified - leave andrade catheter in for accurate I&Os per .
[2023-09-03] MEDS: Acetaminophen Oral Liquid 650 MG/20.3 ML SOLUTION 975 MG PO (19:30)
[2023-09-03] MEDS: Midazolam HCl/PF 2 MG/2 ML VIAL IVPUSH (20:11)
[2023-09-03 20:20] LABS: Anion Gap 31 (12-20); Calcium 11.2 mg/dL (8.4-10.2); Carbon Dioxide 23 mmol/L (22-29); Chloride 103 mmol/L (96-108); Creatinine Clr Calc Pharmacy 12.1; Estimated Glomerular Filt Rate 8; Glucose Random 137 mg/dL (60-115); Magnesium 2.5 mg/dL (1.6-2.6); Phosphorus 7.7 mg/dL (2.7-4.5); Potassium 4.1 mmol/L (3.3-5.1); Sodium 153 mmol/L (135-145)
[2023-09-03 20:32] LABS: Blood Urea Nitrogen 166 mg/dL (9-16)
[2023-09-03] MEDS: Metoprolol Tartrate 5 MG/5 ML VIAL IVPUSH (21:27)
[2023-09-04] VITALS (30 sets, daily range): BP systolic 92–160; BP diastolic 59–88; PULSE 93–144; RESP 16–23; TEMP 35–39; O2SAT 94–98; BMI 27.5
--- NOTE | 2023-09-04 00:49 | PC.NURSE ---
Addendum entered by Jim Jones RN 09/04/23 06:10: REPEAT LOPRESSOR 5MG IV X1 GIVEN THIS AM PER JUN FOR HR 136-138..S.TACH...CURRENTLY S.TACH HR 106-108..BP STABLE Original Note: CARE ASSUMED 7PM...REMAINS INTUBATED/PCV VENT SUPPORT.....FENTANYL 75 MCG/HR...EYES OPEN SPONTANEOUSLY..BRIEFLY TRACKS SPEAKER...STRONG GAG/COUGH REFLEXES...EXTREMETIES FLACCID...SINUS TACHYCARDIA HR 130'S-140....ESOPHAGEAL PROBE= 101.3....ORAL TEMP= 103.1...TYLENOL 976MG VIA OG-TUBE PER ICU INSERTER OPERATOR...INITIAL MARGINAL EFFECT ON TEMP...PRN VERSED GIVEN PER INSERTER OPERATOR W/O EFFECT ON HR DESPITE VENT SYNCHRONY....LOPRESSOR 5MG IV X1 GIVEN...HR DECREASED TO 110'S POST-LOPRESSOR X1 HOUR...HR RETURNED TO 120'S...HS LABS REVIEWED BY INSERTER OPERATOR...BUMEX DRIP HELD AT 8:30pm...urine output decreased fro 160-180 cc/hr to 40-50 cc/hr at present...og feeds 35 cc/hr and h20 240ml flushes q6 hours maintained...FOR FOLLOW-UP AM LABS PER CPOE...
[2023-09-04] MEDS: Heparin Sodium,Porcine 5,000 UNIT/ML VIAL 5000 UNIT SUBCUT ×3 (02:08→21:07)
[2023-09-04] MEDS: fentaNYL citrate/NS 1,000 MCG/100 ML PLAST..BAG 7.5 MCG IVCONT ×2 (02:08→16:22)
[2023-09-04 05:01] LABS: VBG Base Excess 4.2 mmol/L; VBG HCO3 26 mmol/L (22-26); VBG pCO2 33 mmHg; VBG pH 7.51 (7.32-7.43); VBG pO2 97 mmHg
[2023-09-04 05:03] LABS: Venous Blood Gas Refer to POC result
[2023-09-04 05:13] LABS: Basophils Absolute Auto 0.3 X10*3/uL (0.0-0.2); Basophils Percent Auto 1.4 % (0-2); Eosinophils Absolute Auto 1.2 X10*3/uL (0.0-0.4); Eosinophils Percent Auto 5.4 % (0-4); Hemoglobin 8.8 g/dl (14.0-18.0); Imm Gran Abs Auto 1.01 X10*3/uL (0.00-0.03); Imm Gran Pct Auto 4.5 % (0.0-0.4); Lymphocytes Percent Auto 17.7 % (20-40); MANUAL DIFF FLAG SCAN; Mean Corpuscular HGB Conc 32.6 g/dl (31.0-36.0); Mean Platelet Volume 10.4 fL (9.4-12.4); Monocytes Absolute Auto 1.8 X10*3/uL (0.1-1.2); Monocytes Percent Auto 8.1 % (2-11); Neutrophils Absolute Auto 14.1 x10*3/uL (2.0-8.3); Neutrophils Percent Auto 62.9 % (45-73); Platelet Count 695 X10*3/uL (160-400); Red Blood Count 3.14 X10*6/uL (4.60-5.80); Red Cell Distribution Width 18.9 % (11.0-16.0); SCAN SMEAR FLAG 1; White Blood Count 22.4 X10*3/uL (4.8-10.8)
[2023-09-04] MEDS: Metoprolol Tartrate 5 MG/5 ML VIAL IVPUSH (05:33)
[2023-09-04] MEDS: Omeprazole/Na Bicarb Oral Susp 20 MG/10 ML UD Cup 40 MG PO (05:33)
[2023-09-04 05:43] LABS: Alanine Aminotransferase 32 U/L (0-40); Albumin Level 4.1 g/dL (3.5-5.0); Alkaline Phosphatase 173 U/L (39-117); Anion Gap 29 (12-20); Aspartate Amino Transferase 45 U/L (5-37); Bilirubin Total 0.8 mg/dL (0.0-1.0); Blood Urea Nitrogen 175 mg/dL (9-16); Calcium 11.7 mg/dL (8.4-10.2); Carbon Dioxide 25 mmol/L (22-29); Chloride 102 mmol/L (96-108); Estimated Glomerular Filt Rate 8; Glucose Random 139 mg/dL (60-115); Magnesium 2.5 mg/dL (1.6-2.6); Phosphorus 8.7 mg/dL (2.7-4.5); Potassium 3.9 mmol/L (3.3-5.1); Sodium 152 mmol/L (135-145); Total Protein 9.1 g/dL (6.5-8.0)
[2023-09-04 05:48] LABS: SLIDE REVIEW VERIFIED
[2023-09-04] MEDS: 0.9 % Sodium Chloride Flush 3 ML SYRINGE IVFLUSH ×2 (08:17→14:23)
[2023-09-04] MEDS: Nystatin Cream 15 GM TUBE 1 APPL TOPICAL ×2 (08:36→21:08)
[2023-09-04] MEDS: Chlorhexidine Gluc Oral Rinse 15 ML MOUTHWASH BUCCAL ×3 (08:36→21:07)
[2023-09-04] MEDS: Midazolam HCl/PF 2 MG/2 ML VIAL IVPUSH (09:39)
--- NOTE | 2023-09-04 10:04 | MHC.CLN ---
F/U PT REMAINS INTUBATED REVIEWED LABS NOTED ELEVATED SERUM NA-MD SILVA DISCUSSED AT ROUNDS WITH MD MUSE MONITORING KIDNEY FUNCTION AND FLUID OVERLOAD TUBE FEED RUNNING WITH NEPRO AT MAX GOAL RATE 35ML/HR WITH 240ML FREE WATER FLUSHES Q 6 HRS PROVIDES 1512KCALS, 68G PROTEIN, 1570ML FREE WATER FROM FORMULA TOLERATING TF AT GOAL WITH LOW RESIDUALS PER NSG CONTINUE TO MONITOR TOLERANCE AND LYTES
--- NOTE | 2023-09-04 11:10 | P.PNCC_ITS ---
Subjective Subjective Date of Service: 09/04/23 Interval History: 53-year-old gentleman with underlying history of polysubstance abuse, schizoaffective disorder, achalasia status post myotomy admitted on 08/19/2023 with unresponsiveness on the background of polysubstance abuse and rhabdomyolysis with acute kidney failure requiring intubation and ventilatory support. Hospital course also complicated by septic shock and acute hypoxic respiratory failure secondary to pulmonary edema. No events overnight. Renal function improving, though BUN is rising. Still, with poor arousal with sedation vacation. Critical Care Time (minutes): 60 Physical Exam 2 Vital Signs: Vital Signs: Last Vital Signs Temp 100.4 F 09/04/23 10:00 Pulse 104 H 09/04/23 10:00 Resp 16 09/04/23 10:00 BP 151/84 H 09/04/23 10:00 Pulse Ox 96 09/04/23 10:00 O2 Del Method Mechanical Ventil ation 09/04/23 10:00 O2 Flow Rate 40 08/26/23 03:00 FiO2 30 09/04/23 11:05 BMI result Body Mass Index 27.5 Const: General: no acute distress Eyes: Sclerae: sclerae normal EOM: EOMs intact bilaterally Neck: Neck: Yes no lymphadenopathy, Yes trachea midline and Yes supple Resp: Auscultation: crackles bilateral Cardio: Rate: tachycardic Rhythm: regular rhythm Heart sounds: no gallops, no murmurs and no rubs GI: Palpation (GI): Soft to palpation and Other GI palpation findings present ( Nontender) Auscultation: normal bowel sounds Extrem: General: No clubbing, No cyanosis and Yes edema (1+ bilateral) Objective Data Labs 09/04/23 04:42 09/04/23 04:42 Labs: Laboratory Results - last 24 hr 09/03/23 09/04/23 09/04/23 19:28 04:42 04:53 WBC 22.4 H RBC 3.14 L Hgb 8.8 L Hct 27.0 L MCV 86.0 MCH 28.0 MCHC 32.6 RDW 18.9 H Plt Count 695 H MPV 10.4 Immature Gran % (Auto) 4.5 H Neut % (Auto) 62.9 Lymph % (Auto) 17.7 L [place] % (Auto) 8.1 Eos % (Auto) 5.4 H Baso % (Auto) 1.4 Lymph # (Auto) 4.0 [place] # (Auto) 1.8 H Eos # (Auto) 1.2 H Baso # (Auto) 0.3 H Abs Immat Gran (auto) 1.01 H Absolute Neuts (auto) 14.1 H Absolute Nucleated RBC 0.000 Nucleated RBC % (auto) 0.0 Smear Tech's Comments VERIFIED VBG pH 7.51 H VBG pCO2 33 VBG pO2 97 VBG HCO3 26 VBG O2 Saturation 98.0 VBG Base Excess 4.2 Sodium 153 H 152 H Potassium 4.1 3.9 Chloride 103 102 Carbon Dioxide 23 25 Anion Gap 31 H 29 H BUN 166 H 175 H Creatinine 7.24 H* 7.24 H* Estim Creat Clear Calc 12.1 12.0 Estimated GFR 8 8 Random Glucose 137 H 139 H Calcium 11.2 H 11.7 H Phosphorus 7.7 H 8.7 H Magnesium 2.5 2.5 Total Bilirubin 0.8 AST 45 H ALT 32 Alkaline Phosphatase 173 H Total Protein 9.1 H Albumin 4.1 Microbiology Microbiology Results: Microbiology 08/20/23 16:53 Lung - Suctioned Gram Stain - Final 08/20/23 16:53 Lung - Suctioned Sputum Culture - Final Stefanie albicans Stefanie dubliniensis 08/19/23 02:59 Blood - Venous Blood Culture - Final Propionibacterium acnes 08/19/23 02:59 Blood - Venous Blood Culture - Final Propionibacterium acnes 08/19/23 Unknown Urine Catheterized - Bess Catheter Urine Culture - Final No growth. Progress Note: A&P Assessment and plan (1) Metabolic encephalopathy: Status: Acute (2) Polysubstance abuse: Status: Acute (3) Aspiration pneumonia: Status: Acute (4) Acute hypoxemic respiratory failure: Status: Acute (5) NAOMI (acute kidney injury): Status: Acute (6) Rhabdomyolysis: Status: Acute Plan Assessment: 53-year-old male admitted with encephalopathy and rhabdomyolysis with NAOMI secondary to polysubstance abuse further complicated by pulmonary aspiration and shock requiring ventilatory support Plan: Neuro: Encephalopathy, likely secondary to polysubstance abuse. May have uremia component. Poor arousal with sedation vacation will obtain brain MRI. Cardiac: Septic shock on the background of pulmonary aspiration/pneumonitis, resolved. Pulmonary: Acute hypoxic respiratory failure on the background pulmonary aspiration and pulmonary edema from rhabdomyolysis. Continue to titrate off ventilatory support as tolerated. Renal: Acute renal failure secondary to rhabdomyolysis, improving. Non oliguric. Continue to monitor renal indices and urine output. Continue on diuretic drip. May require hemodialysis. Endo: No acute issues. GI: No acute issues. ID: Empiric coverage for pulmonary aspiration. Heme/Onc: No acute issues. Psych: No acute issues. Underlying schizoaffective disorder. Miscellaneous: No acute issues. Prophylaxis: Heparin, ppi Diet: Tube feeds Critical care time spent: 60 minutes Quality Stroke Does the patient have a stroke diagnosis?: No VTE Prior VTE?: No VTE Risk Level:: Medical - low VTE Device Contraindication: N/A - Device Ordered VTE Drug Contraindication: N/A - Med Ordered
[2023-09-04] MEDS: fentaNYL citrate/PF 100 MCG/2 ML VIAL IVPUSH (12:01)
[2023-09-04] MEDS: Midazolam HCl/PF 2 MG/2 ML VIAL 4 MG IVPUSH (12:01)
--- NOTE | 2023-09-04 12:06 | MHC.CM.PN ---
Pt continues to show poor neurological response and cannot be extubated at this time. Plan is for an MRI today - if the scan is negative, pt may need to start on hemodialysis d/t suboptimal renal recovery. He remains 10 liters + and is febrile and tachycardic. D/C plans have not been finalized as his condition remains tenuous. Family has been updated on events - no changes to goals of care at this time. CM to follow.
--- NOTE | 2023-09-04 14:31 | HO.HCP_ITS ---
Health Care Proxy Invocation Health Care Proxy Declaration: I, ___Narciso Pittman , on the date cited below, have determined that, ___Jerson Taveras , lacks the capacity to make or communicate, informed health care decision. This determination is made in accordance with accepted standards of medical judgment and pursuant to [place] 201[place], the [facility] Care Proxy Law. The cause, nature, extent and probable duration of the patient's inapacity are described below: Cause: Metabolic encephalopathy Nature: Organic Extent: Severe Probable Duration of Patient's Incapacity: unknown
[2023-09-04] MEDS: propofoL 200 MG/20 ML VIAL 40 MG IVPUSH (14:43)
--- NOTE | 2023-09-04 15:05 | W.PM.CCHP ---
Procedures Date of Service Date of Service: 09/04/23 Central Line Placement Right IJ: Central Line Comments: After obtaining informed consent right internal jugular triple-lumen hemodialysis catheter placed for hemodialysis under ultrasound guidance and usual sterile conditions with no immediate complications. Line position verified on chest x-ray.
--- NOTE | 2023-09-04 15:12 | PM.EVENT ---
Event Note Date of Service: 09/08/23 Event Note: 53 yr old man admitted with NAOMI due to Rhabdo Creatinine 1.97 on admission and progressively increased to 8. Now plateaued around 7 to 8 mg/dL CPK was [address] and currently trending down. Dialysis requested by due to elevated BUN Currently has hypercalcemia and hyper phosphatemia Dialysis ordered Full consult to follow Time Spent With Patient Time: Total time managing care of this patient today ____ minutes.
[2023-09-04 21:24] LABS: Anion Gap 24 (12-20); Blood Urea Nitrogen 74 mg/dL (9-16); Calcium 10.3 mg/dL (8.4-10.2); Carbon Dioxide 21 mmol/L (22-29); Chloride 97 mmol/L (96-108); Creatinine Clr Calc Pharmacy 24.9; Estimated Glomerular Filt Rate 18; Glucose Random 156 mg/dL (60-115); Phosphorus 5.4 mg/dL (2.7-4.5); Potassium 3.2 mmol/L (3.3-5.1); Sodium 139 mmol/L (135-145)
[2023-09-04] MEDS: Potassium Chloride/H20 40 MEQ/100 ML PIGGYBACK 50 MEQ IV (21:49)
[2023-09-05] VITALS (31 sets, daily range): BP systolic 127–164; BP diastolic 72–91; PULSE 81–113; RESP 14–18; TEMP 34.5–38; O2SAT 96–100; BMI 26.3
[2023-09-05] MEDS: 0.9 % Sodium Chloride Flush 3 ML SYRINGE IVFLUSH ×4 (01:22→20:48)
[2023-09-05] MEDS: Heparin Sodium,Porcine 5,000 UNIT/ML VIAL 5000 UNIT SUBCUT ×3 (04:22→20:47)
[2023-09-05] MEDS: fentaNYL citrate/NS 1,000 MCG/100 ML PLAST..BAG 7.5 MCG IVCONT ×2 (04:34→15:10)
[2023-09-05 05:05] LABS: VBG HCO3 25 mmol/L (22-26); VBG pCO2 28 mmHg; VBG pH 7.56 (7.32-7.43); VBG pO2 59 mmHg
[2023-09-05] MEDS: Omeprazole/Na Bicarb Oral Susp 20 MG/10 ML UD Cup 40 MG PO (05:21)
[2023-09-05 05:52] LABS: Basophils Absolute Auto 0.2 X10*3/uL (0.0-0.2); Eosinophils Absolute Auto 1.9 X10*3/uL (0.0-0.4); Eosinophils Percent Auto 8.3 % (0-4); Hemoglobin 7.9 g/dl (14.0-18.0); Imm Gran Abs Auto 0.77 X10*3/uL (0.00-0.03); Imm Gran Pct Auto 3.5 % (0.0-0.4); Lymphocytes Absolute Auto 3.5 X10*3/uL (1.2-4.9); Lymphocytes Percent Auto 15.7 % (20-40); MANUAL DIFF FLAG SCAN; Mean Corpuscular HGB Conc 32.9 g/dl (31.0-36.0); Mean Corpuscular Hemoglobin 28.9 pg (27.0-33.0); Mean Corpuscular Volume 87.9 fL (80.0-98.0); Mean Platelet Volume 10.5 fL (9.4-12.4); Monocytes Absolute Auto 1.6 X10*3/uL (0.1-1.2); Monocytes Percent Auto 7.1 % (2-11); NRBC Pct Auto 0.1 /100WBC (0.0-0.2); Neutrophils Absolute Auto 14.3 x10*3/uL (2.0-8.3); Neutrophils Percent Auto 64.4 % (45-73); Platelet Count 523 X10*3/uL (160-400); Red Blood Count 2.73 X10*6/uL (4.60-5.80); Red Cell Distribution Width 18.6 % (11.0-16.0); SCAN SMEAR FLAG 1; White Blood Count 22.3 X10*3/uL (4.8-10.8)
[2023-09-05 06:12] LABS: Anion Gap 24 (12-20); Blood Urea Nitrogen 94 mg/dL (9-16); Calcium 11.2 mg/dL (8.4-10.2); Carbon Dioxide 22 mmol/L (22-29); Chloride 97 mmol/L (96-108); Creatinine Clr Calc Pharmacy 19.5; Estimated Glomerular Filt Rate 15; Glucose Random 121 mg/dL (60-115); Magnesium 2.2 mg/dL (1.6-2.6); Phosphorus 8.1 mg/dL (2.7-4.5); Potassium 4.1 mmol/L (3.3-5.1); Sodium 139 mmol/L (135-145)
[2023-09-05 06:29] LABS: SLIDE REVIEW VERIFIED
[2023-09-05] MEDS: Chlorhexidine Gluc Oral Rinse 15 ML MOUTHWASH BUCCAL ×3 (08:13→20:47)
[2023-09-05] MEDS: Nystatin Cream 15 GM TUBE 1 APPL TOPICAL ×2 (08:14→20:47)
--- NOTE | 2023-09-05 10:41 | P.PNCC_ITS ---
Subjective Subjective Date of Service: 09/05/23 Interval History: 53-year-old gentleman with underlying history of polysubstance abuse, schizoaffective disorder, achalasia status post myotomy admitted on 08/19/2023 with unresponsiveness on the background of polysubstance abuse and rhabdomyolysis with acute kidney failure requiring intubation and ventilatory support. Hospital course also complicated by septic shock and acute hypoxic respiratory failure secondary to pulmonary edema. MRI head on 09/04/2023 with no evidence of anoxic injury. Dialysis catheter placed and started on hemodialysis for uremia on 09/04/2023. No events overnight. Critical Care Time (minutes): 60 Physical Exam 2 Vital Signs: Vital Signs: Last Vital Signs Temp 98.2 F 09/05/23 10:00 Pulse 89 09/05/23 10:00 Resp 16 09/05/23 10:00 BP 156/91 H 09/05/23 10:00 Pulse Ox 99 09/05/23 10:00 O2 Del Method Mechanical Ventil ation 09/05/23 10:00 O2 Flow Rate 40 08/26/23 03:00 FiO2 30 09/05/23 10:00 BMI result Body Mass Index 26.3 Const: General: no acute distress and awake Eyes: Sclerae: sclerae normal EOM: EOMs intact bilaterally Neck: Neck: Yes no lymphadenopathy, Yes trachea midline and Yes supple Resp: Auscultation: clear to auscultation bilaterally Cardio: Rate: regular rate Rhythm: regular rhythm Heart sounds: no gallops, no murmurs and no rubs GI: Palpation (GI): Soft to palpation and Other GI palpation findings present ( Nontender) Auscultation: normal bowel sounds Extrem: General: Yes no pedal edema, No clubbing and No cyanosis Objective Data Labs 09/05/23 05:13 09/05/23 05:13 Labs: Laboratory Results - last 24 hr 09/04/23 09/05/23 09/05/23 20:46 04:55 05:13 WBC 22.3 H RBC 2.73 L Hgb 7.9 L Hct 24.0 L MCV 87.9 MCH 28.9 MCHC 32.9 RDW 18.6 H Plt Count 523 H MPV 10.5 Immature Gran % (Auto) 3.5 H Neut % (Auto) 64.4 Lymph % (Auto) 15.7 L [place] % (Auto) 7.1 Eos % (Auto) 8.3 H Baso % (Auto) 1.0 Lymph # (Auto) 3.5 [place] # (Auto) 1.6 H Eos # (Auto) 1.9 H Baso # (Auto) 0.2 Abs Immat Gran (auto) 0.77 H Absolute Neuts (auto) 14.3 H Absolute Nucleated RBC 0.020 H Nucleated RBC % (auto) 0.1 Smear Tech's Comments VERIFIED VBG pH 7.56 H VBG pCO2 28 VBG pO2 59 VBG HCO3 25 VBG O2 Saturation 89.0 VBG Base Excess 4.0 Sodium 139 139 Potassium 3.2 L 4.1 D Chloride 97 97 Carbon Dioxide 21 L 22 Anion Gap 24 H 24 H BUN 74 H 94 H Creatinine 3.49 H 4.14 H* Estim Creat Clear Calc 24.9 19.5 Estimated GFR 18 15 Random Glucose 156 H 121 H Calcium 10.3 H D 11.2 H D Phosphorus 5.4 H 8.1 H Magnesium 2.0 2.2 Microbiology Microbiology Results: Microbiology 08/20/23 16:53 Lung - Suctioned Gram Stain - Final 08/20/23 16:53 Lung - Suctioned Sputum Culture - Final Stefanie albicans Stefanie dubliniensis 08/19/23 02:59 Blood - Venous Blood Culture - Final Propionibacterium acnes 08/19/23 02:59 Blood - Venous Blood Culture - Final Propionibacterium acnes 08/19/23 Unknown Urine Catheterized - Bess Catheter Urine Culture - Final No growth. Progress Note: A&P Assessment and plan (1) Metabolic encephalopathy: Status: Acute (2) Polysubstance abuse: Status: Acute (3) Aspiration pneumonia: Status: Acute (4) Acute hypoxemic respiratory failure: Status: Acute (5) NAOMI (acute kidney injury): Status: Acute Plan Assessment: 53-year-old male admitted with encephalopathy and rhabdomyolysis with NAOMI secondary to polysubstance abuse further complicated by pulmonary aspiration and shock requiring ventilatory support Plan: Neuro: Encephalopathy, likely secondary to polysubstance abuse. May have uremia component. Poor arousal with sedation vacation. Brain MRI essentially normal. Cardiac: Septic shock on the background of pulmonary aspiration/pneumonitis, resolved. Pulmonary: Acute hypoxic respiratory failure on the background pulmonary aspiration and pulmonary edema from rhabdomyolysis. Continue to titrate off ventilatory support as tolerated. Renal: Acute renal failure secondary to rhabdomyolysis, improving. Non oliguric. Continue to monitor renal indices and urine output. Significant uremia started on hemodialysis. Endo: No acute issues. GI: No acute issues. ID: Empiric coverage for pulmonary aspiration. Heme/Onc: No acute issues. Psych: No acute issues. Underlying schizoaffective disorder. Miscellaneous: No acute issues. Prophylaxis: Heparin, ppi Diet: Tube feeds Critical care time spent: 60 minutes Quality Stroke Does the patient have a stroke diagnosis?: No VTE Prior VTE?: No VTE Risk Level:: Medical - low VTE Device Contraindication: N/A - Device Ordered VTE Drug Contraindication: N/A - Med Ordered
[2023-09-05 13:30] LABS: Venous Blood Gas Refer to POC result
[2023-09-06] VITALS (31 sets, daily range): BP systolic 135–168; BP diastolic 69–89; PULSE 75–122; RESP 16–33; TEMP 34.7–38.8; O2SAT 90–99; BMI 26.2
[2023-09-06] MEDS: Heparin Sodium,Porcine 5,000 UNIT/ML VIAL 5000 UNIT SUBCUT ×3 (03:35→19:22)
[2023-09-06] MEDS: fentaNYL citrate/NS 1,000 MCG/100 ML PLAST..BAG 7.5 MCG IVCONT (03:35)
[2023-09-06 04:17] LABS: VBG Base Excess 13.9 mmol/L; VBG HCO3 35 mmol/L (22-26); VBG pCO2 34 mmHg; VBG pH 7.62 (7.32-7.43); VBG pO2 68 mmHg
[2023-09-06 05:26] LABS: MANUAL DIFF FLAG NO
[2023-09-06 05:28] LABS: Basophils Absolute Auto 0.2 X10*3/uL (0.0-0.2); Basophils Percent Auto 0.9 % (0-2); Eosinophils Absolute Auto 1.5 X10*3/uL (0.0-0.4); Eosinophils Percent Auto 8.6 % (0-4); Hematocrit 22.7 % (42.0-52.0); Hemoglobin 7.3 g/dl (14.0-18.0); Imm Gran Abs Auto 0.39 X10*3/uL (0.00-0.03); Imm Gran Pct Auto 2.3 % (0.0-0.4); Lymphocytes Absolute Auto 2.8 X10*3/uL (1.2-4.9); Lymphocytes Percent Auto 16.5 % (20-40); Mean Corpuscular HGB Conc 32.2 g/dl (31.0-36.0); Mean Corpuscular Hemoglobin 28.1 pg (27.0-33.0); Mean Corpuscular Volume 87.3 fL (80.0-98.0); Mean Platelet Volume 10.9 fL (9.4-12.4); Monocytes Absolute Auto 1.4 X10*3/uL (0.1-1.2); Monocytes Percent Auto 8.3 % (2-11); NRBC Pct Auto 0.3 /100WBC (0.0-0.2); Neutrophils Absolute Auto 10.9 x10*3/uL (2.0-8.3); Neutrophils Percent Auto 63.4 % (45-73); Platelet Count 459 X10*3/uL (160-400); Red Cell Distribution Width 18.5 % (11.0-16.0); White Blood Count 17.2 X10*3/uL (4.8-10.8)
[2023-09-06 05:50] LABS: Anion Gap 20 (12-20); Blood Urea Nitrogen 66 mg/dL (9-16); Calcium 12.4 mg/dL (8.4-10.2); Carbon Dioxide 29 mmol/L (22-29); Chloride 93 mmol/L (96-108); Creatinine Clr Calc Pharmacy 25.2; Estimated Glomerular Filt Rate 20; Glucose Random 105 mg/dL (60-115); Magnesium 2.3 mg/dL (1.6-2.6); Phosphorus 6.5 mg/dL (2.7-4.5); Potassium 3.2 mmol/L (3.3-5.1); Sodium 139 mmol/L (135-145)
[2023-09-06 06:11] LABS: Venous Blood Gas Refer to POC result
[2023-09-06] MEDS: Omeprazole/Na Bicarb Oral Susp 20 MG/10 ML UD Cup 40 MG PO (06:25)
[2023-09-06] MEDS: Acetaminophen Oral Liquid 650 MG/20.3 ML SOLUTION PO (06:25)
[2023-09-06] MEDS: 0.9 % Sodium Chloride Flush 3 ML SYRINGE IVFLUSH ×3 (07:59→19:22)
[2023-09-06] MEDS: Nystatin Cream 15 GM TUBE 1 APPL TOPICAL ×2 (08:00→20:58)
[2023-09-06] MEDS: Chlorhexidine Gluc Oral Rinse 15 ML MOUTHWASH BUCCAL (08:02)
--- NOTE | 2023-09-06 10:37 | P.PNCC_ITS ---
Subjective Subjective Date of Service: 09/06/23 Interval History: 53-year-old gentleman with underlying history of polysubstance abuse, schizoaffective disorder, achalasia status post myotomy admitted on 08/19/2023 with unresponsiveness on the background of polysubstance abuse and rhabdomyolysis with acute kidney failure requiring intubation and ventilatory support. Hospital course also complicated by septic shock and acute hypoxic respiratory failure secondary to pulmonary edema. MRI head on 09/04/2023 with no evidence of anoxic injury. Dialysis catheter placed and started on hemodialysis for uremia on 09/04/2023. No events overnight. Significant improvement in encephalopathy after dialysis. Critical Care Time (minutes): 60 Physical Exam 2 Vital Signs: Vital Signs: Last Vital Signs Temp 98.7 F 09/06/23 09:00 Pulse 88 09/06/23 10:00 Resp 24 H 09/06/23 10:00 BP 152/87 H 09/06/23 10:00 Pulse Ox 98 09/06/23 10:00 O2 Del Method Mechanical Ventil ation 09/06/23 10:00 O2 Flow Rate 40 08/26/23 03:00 FiO2 30 09/06/23 10:00 BMI result Body Mass Index 26.2 Const: General: no acute distress and other (Sedated on the vent) Eyes: Sclerae: sclerae normal EOM: EOMs intact bilaterally Neck: Neck: Yes no lymphadenopathy, Yes trachea midline and Yes supple Resp: Auscultation: clear to auscultation bilaterally Cardio: Rate: regular rate Rhythm: regular rhythm Heart sounds: no gallops, no murmurs and no rubs GI: Palpation (GI): Soft to palpation and Other GI palpation findings present ( Nontender) Auscultation: normal bowel sounds Extrem: General: No clubbing, No cyanosis and Yes edema (1+ bilateral) Objective Data Labs 09/06/23 04:07 09/06/23 04:07 Labs: Laboratory Results - last 24 hr 09/06/23 09/06/23 04:07 04:08 WBC 17.2 H RBC 2.60 L Hgb 7.3 L Hct 22.7 L MCV 87.3 MCH 28.1 MCHC 32.2 RDW 18.5 H Plt Count 459 H MPV 10.9 Immature Gran % (Auto) 2.3 H Neut % (Auto) 63.4 Lymph % (Auto) 16.5 L [place] % (Auto) 8.3 Eos % (Auto) 8.6 H Baso % (Auto) 0.9 Lymph # (Auto) 2.8 [place] # (Auto) 1.4 H Eos # (Auto) 1.5 H Baso # (Auto) 0.2 Abs Immat Gran (auto) 0.39 H Absolute Neuts (auto) 10.9 H Absolute Nucleated RBC 0.050 H Nucleated RBC % (auto) 0.3 H VBG pH 7.62 H* VBG pCO2 34 VBG pO2 68 VBG HCO3 35 H VBG O2 Saturation 93.0 VBG Base Excess 13.9 Sodium 139 Potassium 3.2 L D Chloride 93 L Carbon Dioxide 29 Anion Gap 20 BUN 66 H Creatinine 3.20 H Estim Creat Clear Calc 25.2 Estimated GFR 20 Random Glucose 105 Calcium 12.4 H D Phosphorus 6.5 H Magnesium 2.3 Albumin 4.0 Microbiology Microbiology Results: Microbiology 08/20/23 16:53 Lung - Suctioned Gram Stain - Final 08/20/23 16:53 Lung - Suctioned Sputum Culture - Final Stefanie albicans Stefanie dubliniensis 08/19/23 02:59 Blood - Venous Blood Culture - Final Propionibacterium acnes 08/19/23 02:59 Blood - Venous Blood Culture - Final Propionibacterium acnes 08/19/23 Unknown Urine Catheterized - Bess Catheter Urine Culture - Final No growth. Progress Note: A&P Assessment and plan (1) Metabolic encephalopathy: Status: Acute (2) Polysubstance abuse: Status: Acute (3) Aspiration pneumonia: Status: Acute (4) Acute hypoxemic respiratory failure: Status: Acute (5) NAOMI (acute kidney injury): Status: Acute (6) Multifocal pneumonia: Status: Acute (7) Overdose: Status: Acute Plan Assessment: 53-year-old male admitted with encephalopathy and rhabdomyolysis with NAOMI secondary to polysubstance abuse further complicated by pulmonary aspiration and shock requiring ventilatory support Plan: Neuro: Encephalopathy, likely secondary to polysubstance abuse. With significant uremia component improved with hemodialysis. Brain MRI essentially normal. Cardiac: Septic shock on the background of pulmonary aspiration/pneumonitis, resolved. Pulmonary: Acute hypoxic respiratory failure on the background pulmonary aspiration and pulmonary edema from rhabdomyolysis. Continue to titrate off ventilatory support as tolerated. Renal: Acute renal failure secondary to rhabdomyolysis, improving. Non oliguric. Continue to monitor renal indices and urine output. Significant uremia started on hemodialysis, improving. Endo: No acute issues. GI: No acute issues. ID: Empiric coverage for pulmonary aspiration. Heme/Onc: No acute issues. Psych: No acute issues. Underlying schizoaffective disorder. Miscellaneous: No acute issues. Prophylaxis: Heparin, ppi Diet: Tube feeds Critical care time spent: 60 minutes Quality Stroke Does the patient have a stroke diagnosis?: No VTE Prior VTE?: No VTE Risk Level:: Medical - low VTE Device Contraindication: N/A - Device Ordered VTE Drug Contraindication: N/A - Med Ordered
[2023-09-06 20:44] LABS: Anion Gap 23 (12-20); Blood Urea Nitrogen 76 mg/dL (9-16); Calcium 13.2 mg/dL (8.4-10.2); Carbon Dioxide 25 mmol/L (22-29); Chloride 96 mmol/L (96-108); Creatinine Clr Calc Pharmacy 23.8; Estimated Glomerular Filt Rate 19; Glucose Random 98 mg/dL (60-115); Magnesium 2.3 mg/dL (1.6-2.6); Phosphorus 8.4 mg/dL (2.7-4.5); Potassium 2.9 mmol/L (3.3-5.1); Sodium 141 mmol/L (135-145)
[2023-09-06] MEDS: Potassium Chloride/H20 40 MEQ/100 ML PIGGYBACK 50 MEQ IV ×2 (20:55→22:57)
[2023-09-07] VITALS (17 sets, daily range): BP systolic 142–172; BP diastolic 80–95; PULSE 94–129; RESP 19–43; TEMP 37.2–37.6; O2SAT 91–99; BMI 23.3
[2023-09-07] MEDS: Midazolam HCl/PF 2 MG/2 ML VIAL IVPUSH (02:05)
[2023-09-07] MEDS: Heparin Sodium,Porcine 5,000 UNIT/ML VIAL 5000 UNIT SUBCUT ×3 (02:05→20:33)
[2023-09-07 04:27] LABS: HBS Num1 23.33 mIU/mL (0-7.99); HBc Num1 0.54 S/CO (0.00-0.79); Hepatitis B Core Antibody Nonreactive (Nonreactive); Hepatitis B Surface Antigen Negative (Negative); ~Hepatitis B Surface Antibody REACTIVE (Nonreactive)
[2023-09-07 05:39] LABS: VBG Base Excess 4.3 mmol/L; VBG HCO3 26 mmol/L (22-26); VBG pCO2 31 mmHg; VBG pH 7.53 (7.32-7.43); VBG pO2 49 mmHg
[2023-09-07 05:40] LABS: Venous Blood Gas Refer to POC result
[2023-09-07 05:57] LABS: MANUAL DIFF FLAG NO
[2023-09-07 06:00] LABS: Basophils Absolute Auto 0.2 X10*3/uL (0.0-0.2); Basophils Percent Auto 1.2 % (0-2); Eosinophils Absolute Auto 1.3 X10*3/uL (0.0-0.4); Eosinophils Percent Auto 8.2 % (0-4); Hematocrit 23.2 % (42.0-52.0); Hemoglobin 7.7 g/dl (14.0-18.0); Imm Gran Abs Auto 0.24 X10*3/uL (0.00-0.03); Imm Gran Pct Auto 1.5 % (0.0-0.4); Lymphocytes Absolute Auto 2.2 X10*3/uL (1.2-4.9); Lymphocytes Percent Auto 13.7 % (20-40); Mean Corpuscular HGB Conc 33.2 g/dl (31.0-36.0); Mean Corpuscular Hemoglobin 29.2 pg (27.0-33.0); Mean Corpuscular Volume 87.9 fL (80.0-98.0); Mean Platelet Volume 10.6 fL (9.4-12.4); Monocytes Absolute Auto 1.4 X10*3/uL (0.1-1.2); Monocytes Percent Auto 8.3 % (2-11); NRBC Pct Auto 0.2 /100WBC (0.0-0.2); Neutrophils Percent Auto 67.1 % (45-73); Platelet Count 409 X10*3/uL (160-400); Red Blood Count 2.64 X10*6/uL (4.60-5.80); Red Cell Distribution Width 18.2 % (11.0-16.0); White Blood Count 16.3 X10*3/uL (4.8-10.8)
[2023-09-07 06:23] LABS: Albumin Level 4.1 g/dL (3.5-5.0); Anion Gap 24 (12-20); Blood Urea Nitrogen 84 mg/dL (9-16); Calcium 13.6 mg/dL (8.4-10.2); Carbon Dioxide 23 mmol/L (22-29); Chloride 100 mmol/L (96-108); Creatinine Clr Calc Pharmacy 21.3; Estimated Glomerular Filt Rate 17; Glucose Random 87 mg/dL (60-115); Magnesium 2.3 mg/dL (1.6-2.6); Phosphorus 7.7 mg/dL (2.7-4.5); Potassium 3.7 mmol/L (3.3-5.1); Sodium 143 mmol/L (135-145)
[2023-09-07] MEDS: Nystatin Cream 15 GM TUBE 1 APPL TOPICAL ×2 (08:20→20:33)
[2023-09-07] MEDS: 0.9 % Sodium Chloride Flush 3 ML SYRINGE IVFLUSH (08:23)
--- NOTE | 2023-09-07 09:38 | MHC.CLN ---
F/U REVIEWED LABS PT RECEIVED HD STARTING 09/04/23 TUBE FEED RUNNING WITH NEPRO AT MAX GOAL RATE 35ML/HR WITH 120ML FREE WATER FLUSHES Q 8 HRS PROVIDES 1512KCALS, 68G PROTEIN, 970ML FREE WATER FROM FORMULA AND FLUSHES RECOMMEND INCREASING NEPRO TO 40ML/HR WITH 240ML FREE WATER FLUSHES Q 6 HRS TO PROVIDE 1728KCALS (25KCALS/KG BASED ON IBW), 78G PROTEIN (1.1G/KG), 1658ML TOTAL FREE WATER FROM FORMULA AND FLUSHES (24ML/KG) MONITOR TOLERANCE, RESIDUALS AND LYTES
--- NOTE | 2023-09-07 10:11 | MHC.CLN ---
F/U PT EXTUBATED 09/06/23 REVIEWED LABS PT RECEIVED HD STARTING 09/04/23 NON FERROUS MATERIAL HANDLER RECOMMENDING PUREED DIET WITH NT LIQ WILL ADD MAGIC CUP TID TO INCREASE KCALS SUPPLEMENT TO PROVIDE 870KCALS, 27G PROTEIN MONITOR PO INTAKE AND ENCOURAGE SUPPLEMENTS
--- NOTE | 2023-09-07 11:25 | PM.CCPN ---
Subjective Subjective Date of Service: 09/07/23 Interval History: Extubated yesterday, tolerating liberation from ventilator well. Alert, looking around, blood pressure stable Critical Care Time (minutes): 30 Physical Exam Vital Signs: Vital Signs: Last Vital Signs Temp 99.6 F 09/07/23 08:00 Pulse 114 H 09/07/23 10:00 Resp 43 H 09/07/23 10:00 BP 165/88 H 09/07/23 10:00 Pulse Ox 94 09/07/23 10:00 O2 Del Method Room Air 09/07/23 10:00 O2 Flow Rate 2 09/06/23 15:00 FiO2 30 09/06/23 10:00 BMI result Body Mass Index 23.3 General: Not in acute distress, ill appearing and tired appearing Nutritional Appearance: Not well nourished and normal weight Eyes: appearance normal, both eyes and all related structures; Alignment and Position: alignment normal and position normal Neck: No lymphadenopathy, no thyromegaly Resp: bilateral air entry equal, occasional added sounds present more on the right side than left Cardio: Regular rate, regular rhythm; Heart sounds: S1 normal heart sound present and S2 normal heart sound present GI: soft, nontender, no guarding, no hepatosplenomegaly : bladder normal to inspection, bladder normal to palpation, no renal angle tenderness Skin: no rashes or lesions noted and elasticity normal Neuro: Alert, looks around, follows occasional commands Objective Data Labs 09/07/23 05:19 09/07/23 05:25 Labs: Laboratory Results - last 24 hr 09/05/23 09/06/23 09/07/23 09:46 19:06 05:19 WBC 16.3 H RBC 2.64 L Hgb 7.7 L Hct 23.2 L MCV 87.9 MCH 29.2 MCHC 33.2 RDW 18.2 H Plt Count 409 H MPV 10.6 Immature Gran % (Auto) 1.5 H Neut % (Auto) 67.1 Lymph % (Auto) 13.7 L [place] % (Auto) 8.3 Eos % (Auto) 8.2 H Baso % (Auto) 1.2 Lymph # (Auto) 2.2 [place] # (Auto) 1.4 H Eos # (Auto) 1.3 H Baso # (Auto) 0.2 Abs Immat Gran (auto) 0.24 H Absolute Neuts (auto) 11.0 H Absolute Nucleated RBC 0.040 H Nucleated RBC % (auto) 0.2 VBG pH VBG pCO2 VBG pO2 VBG HCO3 VBG O2 Saturation VBG Base Excess Sodium 141 Potassium 2.9 L* Chloride 96 Carbon Dioxide 25 Anion Gap 23 H BUN 76 H Creatinine 3.39 H Estim Creat Clear Calc 23.8 Estimated GFR 19 Random Glucose 98 Calcium 13.2 H* D Phosphorus 8.4 H Magnesium 2.3 Albumin Hep Bs Antigen Negative Hep Bs Antibody REACTIVE Hep B Core Total Ab Nonreactive 09/07/23 09/07/23 05:25 05:31 WBC RBC Hgb Hct MCV MCH MCHC RDW Plt Count MPV Immature Gran % (Auto) Neut % (Auto) Lymph % (Auto) [place] % (Auto) Eos % (Auto) Baso % (Auto) Lymph # (Auto) [place] # (Auto) Eos # (Auto) Baso # (Auto) Abs Immat Gran (auto) Absolute Neuts (auto) Absolute Nucleated RBC Nucleated RBC % (auto) VBG pH 7.53 H VBG pCO2 31 VBG pO2 49 VBG HCO3 26 VBG O2 Saturation 80.0 VBG Base Excess 4.3 Sodium 143 Potassium 3.7 D Chloride 100 Carbon Dioxide 23 Anion Gap 24 H BUN 84 H Creatinine 3.79 H Estim Creat Clear Calc 21.3 Estimated GFR 17 Random Glucose 87 Calcium 13.6 H* Phosphorus 7.7 H Magnesium 2.3 Albumin 4.1 Hep Bs Antigen Hep Bs Antibody Hep B Core Total Ab Microbiology Microbiology Results: Microbiology 08/20/23 16:53 Lung - Suctioned Gram Stain - Final 08/20/23 16:53 Lung - Suctioned Sputum Culture - Final Stefanie albicans Stefanie dubliniensis 08/19/23 02:59 Blood - Venous Blood Culture - Final Propionibacterium acnes 08/19/23 02:59 Blood - Venous Blood Culture - Final Propionibacterium acnes 08/19/23 Unknown Urine Catheterized - Bess Catheter Urine Culture - Final No growth. Progress Note: A&P Assessment and plan (1) Metabolic encephalopathy: Status: Acute (2) Polysubstance abuse: Status: Acute (3) Aspiration pneumonia: Status: Acute (4) Acute hypoxemic respiratory failure: Status: Acute (5) NAOMI (acute kidney injury): Status: Acute (6) Rhabdomyolysis: Status: Acute Plan Mr. Jerson Taveras is a 53-year-old male with PMH of depression, GERD, dysphagia, BPH, bipolar, anemia, alcohol and opiate abuse, anxiety, GI bleed, achalasia s/p heller myotomy and balloon dilations was found unresponsive at home so EMS was called. Upon arrival of the EMS on Thursday was found to have pinpoint pupils with apneic breathing so was brought into the was intubated and placed on ventilator support, he is also found to be in shock needing Levophed support, acute kidney injury, rhabdomyolysis and a right-sided aspiration pneumonia for which MICU was consulted for admission. He remained on ventilator until yesterday, extubated yesterday following which he is doing well. His septic shock has resolved, his blood cultures grew Gram-negative rods which was treated with IV Zosyn. His rhabdomyolysis improved but his BUN and creatinine persistent high so was started on hemodialysis for the management of signs and symptoms of uremia. Neuro: Acute encephalopathy possibly due to drug overdose/ withdrawal now, possible uremic encephalopathy CT head did not show any acute intracranial pathology UDS positive for cocaine, opiates and fentanyl Cardiac: Septic Shock: Resolved, off vasopressor support Respiratory: Acute hypoxemic respiratory failure due to aspiration pneumonia right more than left Extubated yesterday, tolerating liberation from ventilator well, currently on nasal cannula oxygen GI: Acute GI bleed: Resolved, hemoglobin stable. Continue PPI Renal: Acute kidney injury possibly secondary to rhabdomyolysis Nephrology following, started on renal placement therapy We will closely monitor I's and O's Avoid nephrotoxic medications Heme: Chronic anemia, closely monitor H&H, transfuse for hemoglobin less than 7 grams/deciliter Infectious disease: Aspiration pneumonia Blood cultures positive for Gram-negative rods, treated with Zosyn. Currently off antibiotics, WBC count coming down Endocrine: Blood sugars under control Sliding scale insulin as needed Musculoskeletal: Decubitus ulcer prevention protocol Lines: Right IJ TLC Bess catheter Prophylaxis: Heparin, pantoprazole Quality Stroke Does the patient have a stroke diagnosis?: No VTE Prior VTE?: No VTE Risk Level:: Medical - low VTE Device Contraindication: N/A - Device Ordered VTE Drug Contraindication: N/A - Med Ordered
--- NOTE | 2023-09-07 12:33 | PM.CNNEP ---
History of Present Illness Reason for Consult Consult date: 09/08/23 Reason for consult: NAOMI Chief Complaint Chief complaint: Acute hypoxemic respiratory failure History of Present Illness Narrative: 48-year-old man was admitted 2 weeks ago. He had sustained rhabdomyolysis leading to acute kidney injury. There was no improvement renal function and he had significant hypercalcemia and hyperphosphatemia. He underwent dialysis on Thursday and Thursday. Currently he is nonoliguric. Review of Systems Review of Systems Yes Unobtainable due to mental status FOR[facility]LY [facility], [facility] Past Medical History 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 GERD (gastroesophageal reflux disease) Anxiety Family History Family History Father HTN (hypertension) Diabetes Mother HTN (hypertension) Stroke Alzheimer disease Heart disease Surgical History Surgical History History of colonoscopy History of cystoscopy H/O umbilical hernia repair Social History Social History Household Members: Unknown / Unable to assess Housing: Unknown / Unable to assess Do you presently have visiting nurse or other home services: Yes Alcohol intake: former Comment: bilateral wrist restraints for airway safety Patient Tobacco Use Status: Tobacco use Unknown Tobacco use type: Cigarette Cigarette Packs Per Day: 12 Cigarettes Per Day: 240.0 Years Smoked: 12 e-Cigarette/Vaping Use: Never Used Second Hand Smoke Exposure: Yes Substance Use Type: Unknown Advance Directives Date on File: 02/14/20 service: No Current occupational status: unemployed and disabled Sexual orientation: Straight/Heterosexual Meds Allergies Allergy/AdvReac Type Severity Reaction Status Date / Time trazodone [TRAZODONE] Allergy Severe FACIAL Verified 08/19/23 02:58 SWELLING, swelling cat dander [CATS] Allergy Intermediate FACIAL Verified 08/19/23 02:58 ITCHING doxepin [DOXEPIN] Allergy Intermediate WEIGHT Verified 08/19/23 02:58 GAIN/LEG SWELLING Iodinated Contrast Media Allergy Intermediate ITCHING Verified 08/19/23 02:58 [IV DYE, IODINE CONTAINING CONTRAST ] nitroglycerin [NITROGLYCERIN] Allergy Unknown UNKNOWN Verified 08/19/23 02:58 tramadol [TRAMADOL] Allergy Unknown UNKNOWN, Verified 08/19/23 02:58 dry mouth ibuprofen [From MOTRIN] AdvReac Intermediate GI UPSET Verified 08/19/23 02:58 quetiapine [From SEROQUEL] AdvReac Intermediate FACIAL Verified 08/19/23 02:58 SWELLING aspirin [ASPIRIN] AdvReac Mild Stomach Verified 08/19/23 02:58 Upset Ibuprofen Allergy Unknown stomach Uncoded 08/19/23 02:58 ache IV contrast Allergy Unknown Unknown Uncoded 08/03/23 20:27 Motrin Allergy Unknown stomach Uncoded 08/03/23 20:27 pain Active Medications: Current Medications Heparin Sodium (Porcine) (Heparin Sodium,Porcine 5,000 Unit/Ml Vial) 5,000 unit SUBCUT Q8H [facility] Last Admin: 09/07/23 11:52 Dose: 5,000 unit Nystatin (Nystatin Cream 15 Gm Tube) 1 appl TOPICAL BID [facility]; Protocol Last Admin: 09/07/23 08:20 Dose: 1 appl Omeprazole (Omeprazole/Na Bicarb Oral Susp 20 Mg/10 Ml Ud Cup) 40 mg PO DAILY@0630 [facility] Last Admin: 09/07/23 02:59 Dose: Not Given Sodium Chloride (0.9 % Sodium Chloride Flush 3 Ml Syringe) 3 ml IVFLUSH QSHIFT [facility] Last Admin: 09/07/23 08:23 Dose: 3 ml Home Medications ?Medication ?Instructions ?Recorded ?Confirmed ?Last Taken ?Type albuterol sulfate 90 mcg/actuation 2 puff inhalation Q4-6H PRN 08/19/23 08/19/23 Unknown History aerosol inhaler (Ventolin HFA) Shortness Of Breath Or Wheezing capsaicin 0.025 % topical cream 1 appl topical TID 08/19/23 08/19/23 Unknown History cetirizine 10 mg tablet 10 mg PO DAILY 08/19/23 08/19/23 Unknown History cholecalciferol (vitamin D3) 25 25 mcg PO DAILY 08/19/23 08/19/23 Unknown History mcg (1,000 unit) capsule diphenhydramine HCl 25 mg tablet 25 mg PO Q6H PRN Itching 08/19/23 08/19/23 Unknown History (Sindy-Dryl) fluticasone propionate 50 1 - 2 spray intranasal DAILY 08/19/23 08/19/23 Unknown History mcg/actuation nasal spray,suspension loperamide 2 mg tablet 2 mg PO Q6H PRN Loose Stool 08/19/23 08/19/23 Unknown History (Anti-Diarrheal (loperamide)) metformin 500 mg tablet,extended 500 mg PO QPM 08/19/23 08/19/23 Unknown History release 24 hr mirtazapine 15 mg tablet 15 mg PO BEDTIME 08/19/23 08/19/23 Unknown History ondansetron 4 mg disintegrating 4 mg PO Q8H PRN nausea/vomiting 08/19/23 08/19/23 Unknown History tablet polyethylene glycol 3350 17 17 g PO BID PRN constipation 08/19/23 08/19/23 Unknown History gram/dose oral powder selenium sulfide 2.5 % lotion 1 appl topical 3XW PRN DANDRUFF 08/19/23 08/19/23 Unknown History sennosides 8.6 mg tablet (senna) 8.6 mg PO BEDTIME PRN Constipation 08/19/23 08/19/23 Unknown History Physical Exam Vital Signs: Last Vital Signs Temp 98.9 F 09/07/23 12:00 Pulse 121 H 09/07/23 12:00 Resp 40 H 09/07/23 12:00 BP 163/88 H 09/07/23 12:00 Pulse Ox 91 L 09/07/23 12:00 O2 Del Method Room Air 09/07/23 12:00 O2 Flow Rate 2 09/06/23 15:00 FiO2 30 09/06/23 10:00 BMI result Body Mass Index 23.3 Const General: ill appearing Neck Neck: Yes supple Resp Auscultation: clear to auscultation bilaterally Cardio Palpation: no palpable S3 Heart sounds: no rubs GI Palpation (GI): Soft to palpation Auscultation: normal bowel sounds Neuro Motor exam (neuro): no asterixis Results Lab Results 09/08/23 07:58 09/08/23 07:58 Lab results: Chemistry 09/04/23 09/05/23 09/06/23 20:46 05:13 04:07 Sodium 139 139 139 Potassium 3.2 L 4.1 D 3.2 L D Carbon Dioxide 21 L 22 29 BUN 74 H 94 H 66 H Creatinine 3.49 H 4.14 H* 3.20 H Calcium 10.3 H D 11.2 H D 12.4 H D Phosphorus 5.4 H 8.1 H 6.5 H 09/06/23 09/07/23 19:06 05:25 Sodium 141 143 Potassium 2.9 L* 3.7 D Carbon Dioxide 25 23 BUN 76 H 84 H Creatinine 3.39 H 3.79 H Calcium 13.2 H* D 13.6 H* Phosphorus 8.4 H 7.7 H Hematology 09/05/23 09/06/23 09/07/23 05:13 04:07 05:19 WBC 22.3 H 17.2 H 16.3 H Hgb 7.9 L 7.3 L 7.7 L Plt Count 523 H 459 H 409 H Assessment and Plan (1) NAOMI (acute kidney injury): Status: Acute Plan NAOMI due to tubular injury secondary to pigment nephropathy/rhabdomyolysis. No renal recovery yet. In view of uremia and severe hypercalcemia we will continue with hemodialysis until renal recovery. Watch urine output closely. Continue overt nephrotoxic agents. She will follow along with the team. Procedures Date of Service Date of Service: 09/08/23
--- NOTE | 2023-09-07 14:17 | MHC.SL.SWA ---
Speech Pathologist Impression: Risk of aspiration, oropharyngeal dysphagia Risk of Aspiration Due to: Lethargy Hx of Recent Extubation Dysphasia Diet Status: Liquid Consistency and Strategies for Safe Swallow: Liquid Intake Recommendation: [place] Thick Liquid Intake Strategies: Small Sips No Straws Liquids by Teaspoon Only Solid Food Consistency: Dietary Recommendations: Pureed (NDD1) Additional Modifications to Solid Foods: Patient seen for bedside swallow exam this morning while in the ICU. Patient was not following commands, but accepted PO trials. Increased spilling, gurgling and throat clearing noted with trials of thin liquid, better tolerance of nectar thick consistency given by teaspoon. Pocketing with solids, bolus manually removed. Recommend start in PUREED diet (NDD1) and NECTAR THICK liquids via teaspoon, PILLS CRUSHED in PUREE. Patient will require 1:1 assistance feeding. Do not attempt feeding if patient is lethargic or not attending to PO. Oral Medication Intake: Crushed with Puree Please contact the pharmacy regarding appropriate crushable or liquid drug formulations that are available whenever modified delivery is recommended. Compensatory Strategies and Precautions to be Taken for Safe Swallow: Sitting Upright (90 deg) No Straw Liquids from Spoon Small Bites and Sips Alternate Liquids/Solids Rate of Ingestion Change Oral Check Supervision While Eating and Drinking for Safe Swallow: Total Assistance (1:1) Swallowing Recommended Treatments: Compens. Strategy Educat. Recommendation for Speech: Inpatient Speech Therapy Comment: DEBURRING MACHINE OPERATOR will continue to follow during hospitalization to monitor tolerance and to re-assess for upgrade if/when appropriate. Frequency/Duration: Date Range for Service Req: Timeline to reassess: Regional Transportation Manager Clinican/Clinical Fellow: No Supervisory Statement: I have reviewed and agree with the student/clinical fellow's documentation: N/A Speech Language Pathologist: Flora Yung M.A., CCC-DEBURRING MACHINE OPERATOR
--- NOTE | 2023-09-07 16:38 | PM.EVENT ---
Event Note Date of Service: 09/08/23 Event Note: The patient was evaluated and discussed with the ICU physician. He is a 53-year-old male who has been in the ICU since August 18. His past medical history includes depression, GERD, dysphagia, BPH, bipolar disorder, anemia, alcohol and opiate abuse, anxiety, GI bleed, achalasia status post heller myotomy and balloon dilations. He was found unresponsive at home with pinpoint pupils and apnea, requiring intubation by EMS. He was also diagnosed with rhabdomyolysis, acute kidney injury (NAOMI), and shock, for which he was started on levophed. Additionally, he developed aspiration pneumonia and was found to have gram-negative fitz sepsis, gastrointestinal bleed, and acute blood anemia. The patient remained intubated until September 05 and was transferred to the medical floor on September 06. He initiated hemodialysis due to renal failure, likely acute tubular necrosis (ATN) associated with uremia, and continues on dialysis. He is currently receiving nutrition through a feeding tube. Laboratory results show anemia, reactive leukocytosis, and hypercalcemia of unclear cause. Vital signs indicate persistent tachypnea and tachycardia exceeding 130 bpm . He is experiencing confusion due to multifactorial metabolic encephalopathy, including substance abuse, ICU related encephalopathy, and possible uremia-related factors. Plan: Continue supportive care and addressing unresolved medical issues, rehabilitation and likely need for placement. Time Spent With Patient Time: Total time managing care of this patient today ____ minutes.
[2023-09-07] MEDS: Lactated Ringers 1,000 ML 50 ML IVCONT (20:33)
[2023-09-08] VITALS (8 sets, daily range): BP systolic 140–189; BP diastolic 72–88; PULSE 86–115; RESP 19–38; TEMP 36.9–38.3; O2SAT 94–96
[2023-09-08] MEDS: 0.9 % Sodium Chloride Flush 3 ML SYRINGE IVFLUSH (00:31)
--- NOTE | 2023-09-08 02:40 | MHC.PIE ---
P. TEMP 101 I.TEMP 101,PT WITH CONGESTED COUGH,SATS 96% ON ROOM AIR,REMAINS STACH 112,BP 140/78.DR KLINE NOTIFIED.STAT BLOOD CULTURES,LABS LACTIC,CXR AND UA ORDERED.PT STARTED ON IV VANCO AND CEFIPIME AND IV ALBUMIN X 2.REMAINS RESPONSIVE ONLY TO PAINFUL STIMULI. E.MED WITH TYLENOL SUPP AFTER LABS DONE.CONT TO MONITOR
--- NOTE | 2023-09-08 02:52 | PM.EVENT ---
Event Note Date of Service: 09/08/23 Event Note: Was notified by the nurse that patient with fever 101 degrees F. does meet sepsis criteria. Ordering fluids, lactic acid and blood cultures. Empiric IV antibiotic. Obtaining chest x-ray and UA Time Spent With Patient Time: Total time managing care of this patient today ____ minutes.
[2023-09-08] MEDS: Heparin Sodium,Porcine 5,000 UNIT/ML VIAL 5000 UNIT SUBCUT ×3 (03:01→17:43)
[2023-09-08] MEDS: Albumin Human 25 % 100 ML 133.33 ML IV ×2 (03:21→04:07)
[2023-09-08] MEDS: cefEPime HCl 2 GM in 0.9 % Sodium Chloride 50 ML IV (03:28)
[2023-09-08] MEDS: vancomycin HCL 1,500 MG in 0.9 % Sodium Chloride 500 ML 333.33 MG IV (03:38)
[2023-09-08] MEDS: Acetaminophen Supp 650 MG SUPP.RECT PR (03:56)
[2023-09-08 04:17] LABS: Appearance Urine Cloudy; Color Urine Yellow; Glucose Urine UA Negative (Negative); Leukocyte Esterase Urine Negative (Negative); Nitrite Urine Negative (Negative); PH 6.5 (5.0-9.0); Specific Gravity - Urine 1.015 (1.005-1.025); UMIC TRIGGER UACC YES; Urine Blood Moderate (2+) (Negative); Urine Ketones Negative (Negative); Urine Protein 100 (2+) mg/dL (Neg-Trace)
[2023-09-08 04:22] LABS: Bacteria Urine 4+ (None Seen); Squamous Epithelial Cell Urine 0-2 /HPF (0-2); WBC Urine 0-5 /HPF (0-5)
--- NOTE | 2023-09-08 07:34 | P.PNIM_ITS ---
Subjective Subjective Date of Service: 09/08/23 Interval History: f/u on prolonged ICU s/p overdose leading unresponsiveness acute resp failure needing intubation, rhabdo and renal failure needing HD, aspiration and shock and encephalopathy, extubated 09/05, making small progress Physical Exam 2 Vital Signs: Vital Signs: Last Vital Signs Temp 98.4 F 09/08/23 05:00 Pulse 107 H 09/08/23 05:00 Resp 19 09/08/23 03:01 BP 140/78 H 09/08/23 03:01 Pulse Ox 96 09/08/23 03:01 O2 Del Method Room Air 09/08/23 03:01 O2 Flow Rate 2 09/06/23 15:00 FiO2 30 09/06/23 10:00 BMI result Body Mass Index 23.3 Objective Data Active Medications Acetaminophen (Acetaminophen Supp 650 Mg Supp.Rect) 650 mg [place] Q4H PRN PRN Reason: Fever >100.4 Last Admin: 09/08/23 03:56 Dose: 650 mg Documented By: NATALIA Amlodipine Besylate (Amlodipine Besylate 10 Mg Tablet) 10 mg PO DAILY [facility]; Protocol Last Admin: 09/07/23 18:10 Dose: Not Given Documented By: SHELBY Non-Admin Reason: NPO Heparin Sodium (Porcine) (Heparin Sodium,Porcine 5,000 Unit/Ml Vial) 5,000 unit SUBCUT Q8H [facility] Last Admin: 09/08/23 03:01 Dose: 5,000 unit Documented By: NATALIA Lactated Ringer's (Lr) 1,000 mls @ 50 mls/hr IVCONT .Q20H [facility] Last Admin: 09/07/23 20:33 Dose: 50 mls/hr Documented By: SHELBY Cefepime HCl 2 gm/ Sodium (Chloride) 50 mls @ 100 mls/hr IV Q24H [facility] Last Infusion: 09/08/23 04:08 Dose: Infused Documented By: NATALIA Nystatin (Nystatin Cream 15 Gm Tube) 1 appl TOPICAL BID [facility]; Protocol Last Admin: 09/07/23 20:33 Dose: 1 appl Documented By: SHELBY Omeprazole (Omeprazole/Na Bicarb Oral Susp 20 Mg/10 Ml Ud Cup) 40 mg PO DAILY@0630 [facility] Last Admin: 09/08/23 05:34 Dose: Not Given Documented By: NATALIA Non-Admin Reason: NPO Pharmacy Consult (Consult Rx Vancomycin Dosing) 1 each MISCELLANE DAILY PRN PRN Reason: Consult order Sodium Chloride (0.9 % Sodium Chloride Flush 3 Ml Syringe) 3 ml IVFLUSH QSHIFT [facility] Last Admin: 09/08/23 00:31 Dose: 3 ml Documented By: NATALIA Labs 09/08/23 07:58 09/08/23 07:58 Labs: Laboratory Results - last 24 hr 09/08/23 09/08/23 03:22 04:10 Lactic Acid 1.0 Urine Color Yellow Urine Appearance Cloudy Urine pH 6.5 Ur Specific [place] 1.015 Urine Protein 100 (2+) H Urine Glucose (UA) Negative Urine Ketones Negative Urine Blood Moderate (2+) H Urine Nitrite Negative Ur Leukocyte Esterase Negative Urine RBC 11-20 H Urine WBC 0-5 Ur Squamous Epith Cells 0-2 Urine Bacteria 4+ Hyaline Casts 3-5 Assessment and Plan (1) Metabolic encephalopathy: Status: Acute (2) Polysubstance abuse: Status: Acute (3) Aspiration pneumonia: Status: Acute (4) Acute hypoxemic respiratory failure: Status: Acute (5) NAOMI (acute kidney injury): Status: Acute (6) Rhabdomyolysis: Status: Acute (7) Multifocal pneumonia: Status: Acute Plan 55-make admitted through the ICU on 08/18, His past medical history includes depression, GERD, dysphagia, BPH, bipolar disorder, anemia, alcohol and opiate abuse, anxiety, GI bleed, achalasia status post heller myotomy and balloon dilations. He was found unresponsive at home with pinpoint pupils and apnea, requiring intubation by EMS. He was also diagnosed with rhabdomyolysis, acute kidney injury (NAOMI), and shock, for which he was started on levophed. Additionally, he developed aspiration pneumonia and was found to have gram- negative fitz sepsis, gastrointestinal bleed, and acute blood anemia. The patient remained intubated until September 05 and was transferred to the medical floor on September 06. He initiated hemodialysis due to renal failure, likely acute tubular necrosis (ATN) associated with uremia, and continues on dialysis. Neuro Metabolic encephalopathy d/t acute illness Cardiac Tachycardia--multifactorial, resolved. Respiratory Acute hypoxic resp failure d/t Overdose and aspiration PNA, required intuabation, now on room air GI--no issues, feed as below FEN--MARKET RESEARCH CONSULTANT recommend Puree+ HT Liq ID--Treated for pneumonia, and propinibacterim acne had a fever 101 today, increased WBC , blood culture drawan continue Cefepime and Vanco Renal ATN related to rhabdo and shock--no on HD Hypercalcemia--unclear cause will discuss with Nephro Endocrine Quality Stroke Does the patient have a stroke diagnosis?: No VTE Prior VTE?: No VTE Risk Level:: Medical - low VTE Device Contraindication: N/A - Device Ordered VTE Drug Contraindication: N/A - Med Ordered
[2023-09-08] MEDS: Nystatin Cream 15 GM TUBE 1 APPL TOPICAL ×2 (07:42→20:09)
[2023-09-08 08:06] LABS: Glucose, Whole Blood 98 mg/dL (60-115)
[2023-09-08 08:20] LABS: Hematocrit 21.9 % (42.0-52.0); Hemoglobin 7.4 g/dl (14.0-18.0); Mean Corpuscular HGB Conc 33.8 g/dl (31.0-36.0); Mean Corpuscular Hemoglobin 30.2 pg (27.0-33.0); Mean Corpuscular Volume 89.4 fL (80.0-98.0); Mean Platelet Volume 10.2 fL (9.4-12.4); Platelet Count 331 X10*3/uL (160-400); Red Blood Count 2.45 X10*6/uL (4.60-5.80); Red Cell Distribution Width 18.6 % (11.0-16.0); White Blood Count 18.2 X10*3/uL (4.8-10.8)
--- NOTE | 2023-09-08 08:50 | PHA.PROG ---
Admission Date/Time: August 19, 2023 10:55 Indication: SEPSIS Weight in k.6 kg Adjusted body weight in Kg: [place] body weight in Kg: Obesity Dosing Indication % IBW: Serum Creatinine - Last 168 Hours 09/02/23 09/02/23 09/03/23 05:46 18:03 05:14 Creatinine 8.31 H* 7.99 H* 7.71 H* 09/03/23 09/04/23 09/04/23 19:28 04:42 20:46 Creatinine 7.24 H* 7.24 H* 3.49 H 09/05/23 09/06/23 09/06/23 05:13 04:07 19:06 Creatinine 4.14 H* 3.20 H 3.39 H 09/07/23 05:25 Creatinine 3.79 H Estimated CrCl and GFR - Last 168 Hours 09/02/23 09/02/23 09/03/23 05:46 18:03 05:14 Estim Creat Clear Calc 10.7 11.2 11.4 Estimated GFR 7 7 7 09/03/23 09/04/23 09/04/23 19:28 04:42 20:46 Estim Creat Clear Calc 12.1 12.0 24.9 Estimated GFR 8 8 18 09/05/23 09/06/23 09/06/23 05:13 04:07 19:06 Estim Creat Clear Calc 19.5 25.2 23.8 Estimated GFR 15 20 19 09/07/23 05:25 Estim Creat Clear Calc 21.3 Estimated GFR 17 Vancomycin Loading Dose: 1500 MG Current Vancomycin Dosing Regimen: 500 MG Q24H Vancomycin Monitoring using AUC goal of 400 - 600 range with trough as surrogate marker: IET=499 TROUGH=15.2 Date and Time for next Vancomycin Level to be drawn: 09/10/23 @2100 Pharmacist Comments on Vancomycin Plan: Due to patient's poor renal functions, getting trough level after 2 doses to monitor more closely. Vancomycin dosing will take advantage of Trist as a clinical decision support tool that uses Bayesian modeling to calculate individual patient's pharmacokinetic parameters and forecast the patient's drug concentration time course with the target goal AUC 24 range of 400 - 600 mg/L/hr.
[2023-09-08 08:55] LABS: Anion Gap 21 (12-20); Blood Urea Nitrogen 59 mg/dL (9-16); Calcium 12.3 mg/dL (8.4-10.2); Carbon Dioxide 19 mmol/L (22-29); Chloride 101 mmol/L (96-108); Creatinine Clr Calc Pharmacy 28.1; Estimated Glomerular Filt Rate 23; Glucose Random 97 mg/dL (60-115); Magnesium 2.1 mg/dL (1.6-2.6); Potassium 3.4 mmol/L (3.3-5.1); Sodium 138 mmol/L (135-145)
[2023-09-08 09:28] LABS: Glucose, Whole Blood 98 mg/dL (60-115)
[2023-09-08 11:13] LABS: Glucose, Whole Blood 95 mg/dL (60-115)
[2023-09-08 12:47] LABS: Glucose, Whole Blood 95 mg/dL (60-115)
--- NOTE | 2023-09-08 13:25 | P.PNNP_ITS ---
Subjective Subjective Date of Service: 09/10/23 Interval history: Events noted. Transferred to regular floor. Had dialysis yesterday. Physical Exam 2 Vital Signs: Vital Signs: Last Vital Signs Temp 99.0 F 09/08/23 13:03 Pulse 86 09/08/23 13:03 Resp 20 09/08/23 13:03 BP 150/80 H 09/08/23 13:03 Pulse Ox 96 09/08/23 13:03 O2 Del Method Room Air 09/08/23 13:03 O2 Flow Rate 2 09/06/23 15:00 FiO2 30 09/06/23 10:00 BMI result Body Mass Index 23.3 Const: General: ill appearing Neck: Neck: Yes supple Resp: Auscultation: clear to auscultation bilaterally Cardio: Palpation: no palpable S3 Heart sounds: no rubs GI: Palpation (GI): Soft to palpation Auscultation: normal bowel sounds Neuro: Motor exam (neuro): no asterixis Objective Data Labs 09/10/23 07:49 09/10/23 06:09 Labs: Laboratory Results - last 24 hr 09/08/23 09/08/23 09/08/23 03:22 04:10 07:58 WBC 18.2 H RBC 2.45 L Hgb 7.4 L Hct 21.9 L MCV 89.4 MCH 30.2 MCHC 33.8 RDW 18.6 H Plt Count 331 MPV 10.2 Absolute Nucleated RBC 0.000 Nucleated RBC % (auto) 0.0 Sodium 138 Potassium 3.4 Chloride 101 Carbon Dioxide 19 L Anion Gap 21 H BUN 59 H Creatinine 2.87 H Estim Creat Clear Calc 28.1 Estimated GFR 23 POC Glucose Random Glucose 97 Lactic Acid 1.0 Calcium 12.3 H D Phosphorus 7.0 H Magnesium 2.1 Urine Color Yellow Urine Appearance Cloudy Urine pH 6.5 Ur Specific [place] 1.015 Urine Protein 100 (2+) H Urine Glucose (UA) Negative Urine Ketones Negative Urine Blood Moderate (2+) H Urine Nitrite Negative Ur Leukocyte Esterase Negative Urine RBC 11-20 H Urine WBC 0-5 Ur Squamous Epith Cells 0-2 Urine Bacteria 4+ Hyaline Casts 3-5 09/08/23 09/08/23 09/08/23 08:02 09:24 11:07 WBC RBC Hgb Hct MCV MCH MCHC RDW Plt Count MPV Absolute Nucleated RBC Nucleated RBC % (auto) Sodium Potassium Chloride Carbon Dioxide Anion Gap BUN Creatinine Estim Creat Clear Calc Estimated GFR POC Glucose 98 98 95 Random Glucose Lactic Acid Calcium Phosphorus Magnesium Urine Color Urine Appearance Urine pH Ur Specific [place] Urine Protein Urine Glucose (UA) Urine Ketones Urine Blood Urine Nitrite Ur Leukocyte Esterase Urine RBC Urine WBC Ur Squamous Epith Cells Urine Bacteria Hyaline Casts 09/08/23 12:42 WBC RBC Hgb Hct MCV MCH MCHC RDW Plt Count MPV Absolute Nucleated RBC Nucleated RBC % (auto) Sodium Potassium Chloride Carbon Dioxide Anion Gap BUN Creatinine Estim Creat Clear Calc Estimated GFR POC Glucose 95 Random Glucose Lactic Acid Calcium Phosphorus Magnesium Urine Color Urine Appearance Urine pH Ur Specific [place] Urine Protein Urine Glucose (UA) Urine Ketones Urine Blood Urine Nitrite Ur Leukocyte Esterase Urine RBC Urine WBC Ur Squamous Epith Cells Urine Bacteria Hyaline Casts Microbiology Microbiology Results: Microbiology 08/20/23 16:53 Lung - Suctioned Gram Stain - Final 08/20/23 16:53 Lung - Suctioned Sputum Culture - Final Stefanie albicans Stefanie dubliniensis 08/19/23 02:59 Blood - Venous Blood Culture - Final Propionibacterium acnes 08/19/23 02:59 Blood - Venous Blood Culture - Final Propionibacterium acnes 08/19/23 Unknown Urine Catheterized - Bess Catheter Urine Culture - Final No growth. 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 No renal recovery yet. In view of uremia and severe hypercalcemia we will continue with hemodialysis until renal recovery. She will plan for another dialysis session on 09/09/2023 Watch urine output closely. Continue overt nephrotoxic agents. She will follow along with the team. Time Spent With Patient Time: Total time managing care of this patient today ____ minutes. Progress Note: Quality Stroke Does the patient have a stroke diagnosis?: No
[2023-09-08 13:54] LABS: Glucose, Whole Blood 98 mg/dL (60-115)
--- NOTE | 2023-09-08 14:53 | MHC.SPEECHCO ---
METALLURGIST HELPER attempted to work with Pt , however he did not respond to commands. When a moistened swab was presented to him he did not open his mouth and began to clench his lips tighter. Prognosis for adequate nutrition by mouth is guarded. G-tube v. BATTERY CONTAINER TESTER ALUMINUM decision would be a likely next step. METALLURGIST HELPER available to monitor for changes.
[2023-09-08 16:47] LABS: Glucose, Whole Blood 91 mg/dL (60-115)
[2023-09-08] MEDS: Lactated Ringers 1,000 ML 50 ML IVCONT (17:37)
[2023-09-08 18:34] LABS: Glucose, Whole Blood 94 mg/dL (60-115)
[2023-09-08 21:02] LABS: Glucose, Whole Blood 91 mg/dL (60-115)
[2023-09-08] MEDS: Morphine Sulfate 2 MG/ML CARTRIDGE IVPUSH (22:07)
[2023-09-08 23:58] LABS: Venous Blood Gas Refer to POC result
[2023-09-09] VITALS (8 sets, daily range): BP systolic 137–165; BP diastolic 78–100; PULSE 103–124; RESP 19–36; TEMP 36.5–38.3; O2SAT 95–98
--- NOTE | 2023-09-09 | EEG_ITS ---
This is a 16-channel EEG with an EKG lead. The patient is reported obtunded and unresponsive during the tracing. Background EEG rhythm is theta to delta range 5 to 50 microvolt with no obvious asymmetry or paroxysmal tendency. Occasional sharply contoured bifrontal discharges are noted. Cardiac lead did not reveal any significant abnormality. Photic stimulation and hyperventilation were not performed. IMPRESSION: Abnormal EEG suggesting severe bihemispheric dysfunction. Though no overt epileptic tendency was noted, there were some abnormalities suggesting bifrontal irritability. If not treated with an antiepileptic, I would recommend treating him with a broad-spectrum antiepileptic such as levetiracetam for few weeks to see if that would improve his mentation. MD GHANSHYAM Chawla/VANESSA / [phone]
[2023-09-09 00:03] LABS: VBG Base Excess -0.7 mmol/L; VBG HCO3 20 mmol/L (22-26); VBG pCO2 23 mmHg; VBG pH 7.54 (7.32-7.43); VBG pO2 107 mmHg
[2023-09-09 00:17] LABS: B Type Natriuretic Peptide 127 pg/mL (<100)
--- NOTE | 2023-09-09 00:28 | PM.EVENT ---
Event Note Date of Service: 09/09/23 Event Note: Was notified by the nurse that patient would tachypnea. Will call respiratory for deep suctioning. Obtaining chest x-ray, BNP and VBG. Time Spent With Patient Time: Total time managing care of this patient today ____ minutes.
[2023-09-09] MEDS: vancomycin HCL 500 MG in 0.9 % Sodium Chloride 100 ML 110 MG IV (01:10)
[2023-09-09] MEDS: 0.9 % Sodium Chloride Flush 3 ML SYRINGE IVFLUSH ×2 (02:29→21:01)
[2023-09-09 03:23] LABS: Basophils Absolute Auto 0.2 X10*3/uL (0.0-0.2); Basophils Percent Auto 1.2 % (0-2); Eosinophils Absolute Auto 1.2 X10*3/uL (0.0-0.4); Eosinophils Percent Auto 6.8 % (0-4); Hematocrit 23.3 % (42.0-52.0); Hemoglobin 7.7 g/dl (14.0-18.0); Imm Gran Abs Auto 0.63 X10*3/uL (0.00-0.03); Imm Gran Pct Auto 3.5 % (0.0-0.4); Lymphocytes Absolute Auto 2.5 X10*3/uL (1.2-4.9); Lymphocytes Percent Auto 13.6 % (20-40); MANUAL DIFF FLAG SCAN; Mean Corpuscular Hemoglobin 29.3 pg (27.0-33.0); Mean Corpuscular Volume 88.6 fL (80.0-98.0); Mean Platelet Volume 10.4 fL (9.4-12.4); Monocytes Absolute Auto 1.8 X10*3/uL (0.1-1.2); Monocytes Percent Auto 10.2 % (2-11); Neutrophils Absolute Auto 11.6 x10*3/uL (2.0-8.3); Neutrophils Percent Auto 64.7 % (45-73); Platelet Count 354 X10*3/uL (160-400); Red Blood Count 2.63 X10*6/uL (4.60-5.80); Red Cell Distribution Width 19.6 % (11.0-16.0); SCAN SMEAR FLAG 1
[2023-09-09 03:42] LABS: SLIDE REVIEW VERIFIED
[2023-09-09] MEDS: cefEPime HCl 2 GM in 0.9 % Sodium Chloride 50 ML IV (05:15)
[2023-09-09] MEDS: Heparin Sodium,Porcine 5,000 UNIT/ML VIAL 5000 UNIT SUBCUT ×3 (05:15→21:01)
[2023-09-09] MEDS: Acetaminophen Supp 650 MG SUPP.RECT PR (05:51)
[2023-09-09 06:03] LABS: Creatinine Clr Calc Pharmacy 25.3; Estimated Glomerular Filt Rate 20
[2023-09-09] MEDS: Pantoprazole Sodium 40 MG/10 ML VIAL IVPUSH (06:07)
[2023-09-09] MEDS: Furosemide 100 MG/10 ML VIAL 60 MG IVPUSH (06:07)
[2023-09-09 06:24] LABS: Glucose, Whole Blood 106 mg/dL (60-115)
[2023-09-09 08:33] LABS: Anion Gap 22 (12-20); Blood Urea Nitrogen 78 mg/dL (9-16); Carbon Dioxide 20 mmol/L (22-29); Chloride 105 mmol/L (96-108); Glucose Random 98 mg/dL (60-115); Potassium 3.5 mmol/L (3.3-5.1); Sodium 143 mmol/L (135-145)
[2023-09-09 08:34] LABS: Calcium 12.7 mg/dL (8.4-10.2)
[2023-09-09 10:25] LABS: ABG Base Excess -2.7 mmol/L; ABG HCO3 18 mmol/L (22-26); ABG pCO2 23 mmHg (32-45); ABG pO2 99 mmHg (83-108)
--- NOTE | 2023-09-09 10:45 | MHC.CM.PN ---
Per rounds, pt still requiring acute level of care. DCP is uncertain at this time. CM will follow and assist with DC planning.
--- NOTE | 2023-09-09 10:53 | MHC.CLN ---
Addendum entered by eLda Gillespie, ISABEL 09/09/23 13:52: IF TUBE FEEDING NEEDED; RECOMMEND NEPRO AT MAX GOAL RATE 45ML/HR TO PROVIDE 1944KCALS (28KCALS/KG), 87G PROTEIN (1.25G/KG), 785ML FREE WATER FROM FORMULA MONITOR TOLERANCE, RESIDUALS AND LYTES Original Note: F/U PT TRANSFERRED TO MEDICAL FLOOR REVIEWED LABS -HD CONTINUES DIET ADVANCED TO PUREED WITH NT LIQ PER DIGITAL CAMERA TECHNICIAN PT WITH VERY POOR PO WILL ADD MAGIC CUP TID TO INCREASE KCALS SUPPLEMENT TO PROVIDE 870KCALS, 27G PROTEIN MONITOR PO INTAKE AND ENCOURAGE SUPPLEMENTS
[2023-09-09 11:28] LABS: Glucose, Whole Blood 135 mg/dL (60-115)
--- NOTE | 2023-09-09 11:39 | HO.PM.IMPN ---
Subjective Subjective Date of Service: 09/09/23 Interval History: f/u patient who recently spent an extended period in the ICU after a drug overdose. The overdose led to unresponsiveness, acute respiratory failure requiring intubation, rhabdomyolysis, Shock and kidney failure requiring hemodialysis. He also experienced aspiration pneumonia, and encephalopathy. While he was extubated on September 05, there haven't been any significant improvements in his condition.He's not communicating. he is now fever free. However, his breathing rate is irregular, and he experiences occasional rapid heart rate. He's also requiring frequent suctioning . Physical Exam Vital Signs: Vital Signs: Last Vital Signs Temp 99.3 F 09/09/23 10:28 Pulse 104 H 09/09/23 10:28 Resp 28 H 09/09/23 10:28 BP 139/92 H 09/09/23 10:28 Pulse Ox 97 09/09/23 10:28 O2 Del Method Room Air 09/09/23 10:28 O2 Flow Rate 2 09/06/23 15:00 FiO2 30 09/06/23 10:00 BMI result Body Mass Index 23.3 General:awake, confused, not following direction not communicating Resp: Jon rhonchi CVS: S1,S2,RRR GI: +BS, NT, no distention Skin: No rash Neuro: limited exam Psych: not able to assess, flat Objective Data Active Medications Acetaminophen (Acetaminophen Supp 650 Mg Supp.Rect) 650 mg [place] Q4H PRN PRN Reason: Fever >100.4 Last Admin: 09/09/23 05:51 Dose: 650 mg Documented By: LUMA Amlodipine Besylate (Amlodipine Besylate 10 Mg Tablet) 10 mg PO DAILY [facility]; Protocol Last Admin: 09/09/23 08:21 Dose: Not Given Documented By: SUGEY Non-Admin Reason: Off unit: Dialysis Glucose (Glucose Gel 15 Gm Gel..Gram.) 15 gm PO Q15M PRN; Protocol PRN Reason: per Hypoglycemia Standing Ord. Heparin Sodium (Porcine) (Heparin Sodium,Porcine 5,000 Unit/Ml Vial) 5,000 unit SUBCUT Q8H [facility] Last Admin: 09/09/23 11:32 Dose: 5,000 unit Documented By: SUGEY Cefepime HCl 2 gm/ Sodium (Chloride) 50 mls @ 100 mls/hr IV Q24H [facility] Last Infusion: 09/09/23 07:15 Dose: Infused Documented By: LUMA Dextrose (D10) 250 mls @ 750 mls/hr IV Q15M PRN; Protocol PRN Reason: per Hypoglycemia Standing Ord. Vancomycin HCl 500 mg/ Sodium (Chloride) 110 mls @ 110 mls/hr IV Q24H [facility] Last Infusion: 09/09/23 02:30 Dose: Infused Documented By: LUMA Nystatin (Nystatin Cream 15 Gm Tube) 1 appl TOPICAL BID [facility]; Protocol Last Admin: 09/09/23 08:21 Dose: Not Given Documented By: SUGEY Non-Admin Reason: Off unit: Dialysis Pantoprazole Sodium (Pantoprazole Sodium 40 Mg/10 Ml Vial) 40 mg IVPUSH DAILY@0630 [facility] Last Admin: 09/09/23 06:07 Dose: 40 mg Documented By: LUMA Pharmacy Consult (Consult Rx Vancomycin Dosing) 1 each MISCELLANE DAILY PRN PRN Reason: Consult order Sodium Chloride (0.9 % Sodium Chloride Flush 3 Ml Syringe) 3 ml IVFLUSH QSHIFT [facility] Last Admin: 09/09/23 07:54 Dose: Not Given Documented By: SUGEY Non-Admin Reason: Off unit: Dialysis Labs 09/09/23 02:46 09/09/23 05:22 Labs: Laboratory Results - last 24 hr 09/08/23 09/08/23 09/08/23 12:42 13:50 16:43 MCV MCH MCHC RDW Plt Count MPV Immature Gran % (Auto) Neut % (Auto) Lymph % (Auto) [place] % (Auto) Eos % (Auto) Baso % (Auto) Lymph # (Auto) [place] # (Auto) Eos # (Auto) Baso # (Auto) Abs Immat Gran (auto) Absolute Neuts (auto) Absolute Nucleated RBC Nucleated RBC % (auto) Smear Tech's Comments Hold Purple Top O2 Saturation ABG pH at Pt Temp ABG pCO2 at Pt Temp ABG pO2 at Pt Temp ABG HCO3 ABG Base Excess (Actual) VBG pH VBG pCO2 VBG pO2 VBG HCO3 VBG O2 Saturation VBG Base Excess Anion Gap Estim Creat Clear Calc Estimated GFR POC Glucose 95 98 91 Random Glucose Calcium B-Natriuretic Peptide 09/08/23 09/08/23 09/08/23 18:30 20:56 23:49 MCV MCH MCHC RDW Plt Count MPV Immature Gran % (Auto) Neut % (Auto) Lymph % (Auto) [place] % (Auto) Eos % (Auto) Baso % (Auto) Lymph # (Auto) [place] # (Auto) Eos # (Auto) Baso # (Auto) Abs Immat Gran (auto) Absolute Neuts (auto) Absolute Nucleated RBC Nucleated RBC % (auto) Smear Tech's Comments Hold Purple Top O2 Saturation ABG pH at Pt Temp ABG pCO2 at Pt Temp ABG pO2 at Pt Temp ABG HCO3 ABG Base Excess (Actual) VBG pH VBG pCO2 VBG pO2 VBG HCO3 VBG O2 Saturation VBG Base Excess Anion Gap Estim Creat Clear Calc Estimated GFR POC Glucose 94 91 Random Glucose Calcium B-Natriuretic Peptide 127 H 09/08/23 09/09/23 09/09/23 23:55 02:46 05:22 MCV 88.6 MCH 29.3 MCHC 33.0 RDW 19.6 H Plt Count 354 MPV 10.4 Immature Gran % (Auto) 3.5 H Neut % (Auto) 64.7 Lymph % (Auto) 13.6 L [place] % (Auto) 10.2 Eos % (Auto) 6.8 H Baso % (Auto) 1.2 Lymph # (Auto) 2.5 [place] # (Auto) 1.8 H Eos # (Auto) 1.2 H Baso # (Auto) 0.2 Abs Immat Gran (auto) 0.63 H Absolute Neuts (auto) 11.6 H Absolute Nucleated RBC 0.000 Nucleated RBC % (auto) 0.0 Smear Tech's Comments VERIFIED Hold Purple Top SEE NOTE O2 Saturation ABG pH at Pt Temp ABG pCO2 at Pt Temp ABG pO2 at Pt Temp ABG HCO3 ABG Base Excess (Actual) VBG pH 7.54 H VBG pCO2 23 VBG pO2 107 VBG HCO3 20 L VBG O2 Saturation 99.0 VBG Base Excess -0.7 Anion Gap 22 H Estim Creat Clear Calc 25.3 Estimated GFR 20 POC Glucose Random Glucose 98 Calcium 12.7 H* B-Natriuretic Peptide 09/09/23 09/09/23 09/09/23 06:20 10:17 11:24 MCV MCH MCHC RDW Plt Count MPV Immature Gran % (Auto) Neut % (Auto) Lymph % (Auto) [place] % (Auto) Eos % (Auto) Baso % (Auto) Lymph # (Auto) [place] # (Auto) Eos # (Auto) Baso # (Auto) Abs Immat Gran (auto) Absolute Neuts (auto) Absolute Nucleated RBC Nucleated RBC % (auto) Smear Tech's Comments Hold Purple Top O2 Saturation 98.0 ABG pH at Pt Temp 7.50 H ABG pCO2 at Pt Temp 23 L ABG pO2 at Pt Temp 99 ABG HCO3 18 L ABG Base Excess (Actual) -2.7 VBG pH VBG pCO2 VBG pO2 VBG HCO3 VBG O2 Saturation VBG Base Excess Anion Gap Estim Creat Clear Calc Estimated GFR POC Glucose 106 135 H Random Glucose Calcium B-Natriuretic Peptide Microbiology Microbiology Results: Microbiology 09/08/23 03:22 Blood Culture - Preliminary Blood - Venous No growth after 24 hours. 09/08/23 03:22 Blood Culture - Preliminary Blood - Venous No growth after 24 hours. Assessment and Plan (1) Metabolic encephalopathy: Status: Acute (2) Polysubstance abuse: Status: Acute (3) Aspiration pneumonia: Status: Acute (4) Acute hypoxemic respiratory failure: Status: Acute (5) NAOMI (acute kidney injury): Status: Acute (6) Rhabdomyolysis: Status: Acute (7) Multifocal pneumonia: Status: Acute Plan 55-make admitted through the ICU on 08/18, His past medical history includes depression, GERD, dysphagia, BPH, bipolar disorder, anemia, alcohol and opiate abuse, anxiety, GI bleed, achalasia status post heller myotomy and balloon dilations. He was found unresponsive at home with pinpoint pupils and apnea, requiring intubation by EMS. He was also diagnosed with rhabdomyolysis, acute kidney injury (NAOMI), and shock, for which he was started on levophed. Additionally, he developed aspiration pneumonia and was found to have gram-negative fitz sepsis, gastrointestinal bleed, and acute blood anemia. The patient remained intubated until September 05 and was transferred to the medical floor on September 06. He initiated hemodialysis due to renal failure, likely acute tubular necrosis (ATN) associated with uremia, and continues on dialysis. Neuro Metabolic encephalopathy d/t acute illness and likely anoxic encephalopathy ? permanent damage Neuro consult EEG Cardiac Tachycardia--multifactorial, resolved. Respiratory Acute hypoxic resp failure d/t Overdose and aspiration PNA, required intuabation, now on room air, there is possibility of ongoing aspiration, and need frequent suctioning GI--no issues, feed as below, may need tube feed FEN--RESTORATIVE AIDE recommend Puree+ HT Liq, but concern of aspiration and therefore may need tube feed ID--Treated for pneumonia, and propinibacterim acne had a fever 101 6/4, increased WBC , blood culture drawan and pending, fever resolved continue Cefepime and Vanco, ID consult Renal ATN related to rhabdo and shock--now on HD Hypercalcemia--unclear cause will discuss with Nephro Endocrine--no issues Need for inpatient:post icu care due to multiple issues as above, ongoing fever and work up , not eating and may need feeding tube Discussed clinical course and possibility of PEg with with health care proxy over the phone, prognosis is poor Quality Stroke Does the patient have a stroke diagnosis?: No VTE Prior VTE?: No VTE Risk Level:: Medical - low VTE Device Contraindication: N/A - Device Ordered VTE Drug Contraindication: N/A - Med Ordered
--- NOTE | 2023-09-09 13:15 | MHC.SLORD ---
Addendum entered and electronically signed by ENID Ambriz 09/09/23 14:22: Correction: Tray at bedside at lunchtime was from breakfast. MD, RN, GSR, and kitchen notified. Original Note: Speech Language Pathology Order Status: Per MD, pt status was changed to NPO d/t AGENCY SALES DIRECTOR's inability to re-assess swallow yesterday. Pt seen by AGENCY SALES DIRECTOR w/ nephew/HCP at bedside. Pt did not open mouth for oral care, only allowing for moisturizer on lips. Pt's lunch tray arrived at bedside, tray removed by AGENCY SALES DIRECTOR. Kitchen notified. Recommend pt continue NPO. AGENCY SALES DIRECTOR to re-eval tomorrow AM.
--- NOTE | 2023-09-09 13:54 | P.CNNE_ITS ---
History of Present Illness Data of Consult Service Date: 09/09/23 Primary Care Provider: Patrick Ly MD HPI Reason for consult: Hypoxic encephalopathy This is a 53-year-old male with PMH of depression, GERD, dysphagia, BPH, bipolar, anemia, alcohol and opiate abuse, anxiety, GI bleed, achalasia s/p heller myotomy and balloon dilations was found unresponsive at home after drug overdose . Upon arrival of the EMS he was found to have pinpoint pupils with apneic breathing so he? was ?intubated and placed on ventilator support, he is also found to be in shock needing Levophed support, acute kidney injury, rhabdomyolysis and a right-sided aspiration pneumonia. He is now out of the ICU and extubated , but remains poorly responsive. Review of Systems 2 Review of Systems: Unable to obtain as patient is intubated and on ventilator support Yes Unobtainable due to mental status PMFSH Past Medical History 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 GERD (gastroesophageal reflux disease) Anxiety Family History Family History Father HTN (hypertension) Diabetes Mother HTN (hypertension) Stroke Alzheimer disease Heart disease Surgical History Surgical History History of colonoscopy History of cystoscopy H/O umbilical hernia repair Social History Social History Household Members: Unknown / Unable to assess Housing: Unknown / Unable to assess Do you presently have visiting nurse or other home services: Yes Alcohol intake: former Comment: bilateral wrist restraints for airway safety Patient Tobacco Use Status: Tobacco use Unknown Tobacco use type: Cigarette Cigarette Packs Per Day: 12 Cigarettes Per Day: 240.0 Years Smoked: 12 e-Cigarette/Vaping Use: Never Used Second Hand Smoke Exposure: Yes Substance Use Type: Unknown Advance Directives Date on File: 02/14/20 service: No Current occupational status: unemployed and disabled Sexual orientation: Straight/Heterosexual Meds Allergies Allergy/AdvReac Type Severity Reaction Status Date / Time trazodone [TRAZODONE] Allergy Severe FACIAL Verified 08/19/23 02:58 SWELLING, swelling cat dander [CATS] Allergy Intermediate FACIAL Verified 08/19/23 02:58 ITCHING doxepin [DOXEPIN] Allergy Intermediate WEIGHT Verified 08/19/23 02:58 GAIN/LEG SWELLING Iodinated Contrast Media Allergy Intermediate ITCHING Verified 08/19/23 02:58 [IV DYE, IODINE CONTAINING CONTRAST ] nitroglycerin [NITROGLYCERIN] Allergy Unknown UNKNOWN Verified 08/19/23 02:58 tramadol [TRAMADOL] Allergy Unknown UNKNOWN, Verified 08/19/23 02:58 dry mouth ibuprofen [From MOTRIN] AdvReac Intermediate GI UPSET Verified 08/19/23 02:58 quetiapine [From SEROQUEL] AdvReac Intermediate FACIAL Verified 08/19/23 02:58 SWELLING aspirin [ASPIRIN] AdvReac Mild Stomach Verified 08/19/23 02:58 Upset Ibuprofen Allergy Unknown stomach Uncoded 08/19/23 02:58 ache IV contrast Allergy Unknown Unknown Uncoded 08/03/23 20:27 Motrin Allergy Unknown stomach Uncoded 08/03/23 20:27 pain Active Medications: Current Medications Acetaminophen (Acetaminophen Supp 650 Mg Supp.Rect) 650 mg OR Q4H PRN PRN Reason: Fever >100.4 Last Admin: 09/09/23 05:51 Dose: 650 mg Amlodipine Besylate (Amlodipine Besylate 10 Mg Tablet) 10 mg PO DAILY [facility]; Protocol Last Admin: 09/09/23 08:21 Dose: Not Given Glucose (Glucose Gel 15 Gm Gel..Gram.) 15 gm PO Q15M PRN; Protocol PRN Reason: per Hypoglycemia Standing Ord. Heparin Sodium (Porcine) (Heparin Sodium,Porcine 5,000 Unit/Ml Vial) 5,000 unit SUBCUT Q8H [facility] Last Admin: 09/09/23 11:32 Dose: 5,000 unit Cefepime HCl 2 gm/ Sodium (Chloride) 50 mls @ 100 mls/hr IV Q24H [facility] Last Infusion: 09/09/23 07:15 Dose: Infused Dextrose (D10) 250 mls @ 750 mls/hr IV Q15M PRN; Protocol PRN Reason: per Hypoglycemia Standing Ord. Vancomycin HCl 500 mg/ Sodium (Chloride) 110 mls @ 110 mls/hr IV Q24H [facility] Last Infusion: 09/09/23 02:30 Dose: Infused Nystatin (Nystatin Cream 15 Gm Tube) 1 appl TOPICAL BID [facility]; Protocol Last Admin: 09/09/23 08:21 Dose: Not Given Pantoprazole Sodium (Pantoprazole Sodium 40 Mg/10 Ml Vial) 40 mg IVPUSH DAILY@0630 [facility] Last Admin: 09/09/23 06:07 Dose: 40 mg Pharmacy Consult (Consult Rx Vancomycin Dosing) 1 each MISCELLANE DAILY PRN PRN Reason: Consult order Sodium Chloride (0.9 % Sodium Chloride Flush 3 Ml Syringe) 3 ml IVFLUSH QSHIFT [facility] Last Admin: 09/09/23 07:54 Dose: Not Given Home Medications ?Medication ?Instructions ?Recorded ?Confirmed ?Last Taken ?Type albuterol sulfate 90 mcg/actuation 2 puff inhalation Q4-6H PRN 08/19/23 08/19/23 Unknown History aerosol inhaler (Ventolin HFA) Shortness Of Breath Or Wheezing capsaicin 0.025 % topical cream 1 appl topical TID 08/19/23 08/19/23 Unknown History cetirizine 10 mg tablet 10 mg PO DAILY 08/19/23 08/19/23 Unknown History cholecalciferol (vitamin D3) 25 25 mcg PO DAILY 08/19/23 08/19/23 Unknown History mcg (1,000 unit) capsule diphenhydramine HCl 25 mg tablet 25 mg PO Q6H PRN Itching 08/19/23 08/19/23 Unknown History (Sindy-Dryl) fluticasone propionate 50 1 - 2 spray intranasal DAILY 08/19/23 08/19/23 Unknown History mcg/actuation nasal spray,suspension loperamide 2 mg tablet 2 mg PO Q6H PRN Loose Stool 08/19/23 08/19/23 Unknown History (Anti-Diarrheal (loperamide)) metformin 500 mg tablet,extended 500 mg PO QPM 08/19/23 08/19/23 Unknown History release 24 hr mirtazapine 15 mg tablet 15 mg PO BEDTIME 08/19/23 08/19/23 Unknown History ondansetron 4 mg disintegrating 4 mg PO Q8H PRN nausea/vomiting 08/19/23 08/19/23 Unknown History tablet polyethylene glycol 3350 17 17 g PO BID PRN constipation 08/19/23 08/19/23 Unknown History gram/dose oral powder selenium sulfide 2.5 % lotion 1 appl topical 3XW PRN DANDRUFF 08/19/23 08/19/23 Unknown History sennosides 8.6 mg tablet (senna) 8.6 mg PO BEDTIME PRN Constipation 08/19/23 08/19/23 Unknown History Physical Exam 2 Vital Signs: Vital Signs: Last Vital Signs Temp 97.8 F 09/09/23 11:49 Pulse 107 H 09/09/23 11:49 Resp 28 H 09/09/23 10:28 BP 137/89 09/09/23 11:49 Pulse Ox 96 09/09/23 11:49 O2 Del Method Room Air 09/09/23 11:49 O2 Flow Rate 2 09/06/23 15:00 FiO2 30 09/06/23 10:00 BMI result Body Mass Index 23.3 Const: General: no acute distress, alert, awake, ill appearing and other (Sedated on the vent) Nutritional Appearance: obese Eyes: Sclerae: sclerae normal EOM: EOMs intact bilaterally Neck: Neck: Yes no lymphadenopathy, Yes trachea midline and Yes supple Resp: Effort & Inspection: normal respiratory effort and no respiratory distress Auscultation: clear to auscultation bilaterally and crackles bilateral Cardio: Palpation: no palpable S3 Rate: regular rate and tachycardic R hythm: regular rhythm Heart sounds: no gallops, no murmurs and no rubs GI: Palpation (GI): Soft to palpation and Other GI palpation findings present ( Nontender) Auscultation: normal bowel sounds Neuro: Other: He remains poorly responsive. Occasionally opens his eyes. He does not follow any commands. He withdraws feebly to command. He has generalized increase in tone Motor exam (neuro): no asterixis Extrem: General: Yes no pedal edema, No clubbing, No cyanosis and Yes edema (1+ bilateral) Results Labs 09/09/23 02:46 09/09/23 05:22 Labs: Short CBC 09/09/23 Range/Units 02:46 WBC 18.0 H (4.8-10.8) X10*3/uL Hgb 7.7 L (14.0-18.0) g/dl Hct 23.3 L (42.0-52.0) % Plt Count 354 (160-400) X10*3/uL BMP 06/05/24 05:22 Sodium 143 Potassium 3.5 Chloride 105 Carbon Dioxide 20 L BUN 78 H Creatinine 3.18 H Calcium 12.7 H* Microbiology Microbiology Results: Microbiology 09/08/23 03:22 Blood - Venous Blood Culture - Preliminary No growth after 24 hours. 09/08/23 03:22 Blood - Venous Blood Culture - Preliminary No growth after 24 hours. 08/20/23 16:53 Lung - Suctioned Gram Stain - Final 08/20/23 16:53 Lung - Suctioned Sputum Culture - Final Stefanie albicans Stefanie dubliniensis 08/19/23 02:59 Blood - Venous Blood Culture - Final Propionibacterium acnes 08/19/23 02:59 Blood - Venous Blood Culture - Final Propionibacterium acnes 08/19/23 Unknown Urine Catheterized - Bess Catheter Urine Culture - Final No growth. 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 Prognosis for meaningful recovery remains guarded. Recommendation EEG. Physical therapy and jail placement. A more accurate prognosis can be made after about 3 months. Continue supportive care. (2) Polysubstance abuse: Status: Acute (3) Aspiration pneumonia: Status: Acute (4) Acute hypoxemic respiratory failure: Status: Acute (5) NAOMI (acute kidney injury): Status: Acute (6) Rhabdomyolysis: Qualifiers: Rhabdomyolysis type: non-traumatic Qualified Code(s): M62.82 - Rhabdomyolysis Status: Acute (7) Multifocal pneumonia: Status: Acute Plan 53-make admitted through the ICU on 08/18, His past medical history includes depression, GERD, dysphagia, BPH, bipolar disorder, anemia, alcohol and opiate abuse, anxiety, GI bleed, achalasia status post heller myotomy and balloon dilations. He was found unresponsive at home with pinpoint pupils and apnea, requiring intubation by EMS. He was also diagnosed with rhabdomyolysis, acute kidney injury (NAOMI), and shock, for which he was started on levophed. Additionally, he developed aspiration pneumonia and was found to have gram- negative fitz sepsis, gastrointestinal bleed, and acute blood anemia. The patient remained intubated until September 05 and was transferred to the medical floor on September 06. He initiated hemodialysis due to renal failure, likely acute tubular necrosis (ATN) associated with uremia, and continues on dialysis. Neuro Metabolic encephalopathy d/t acute illness and likely anoxic encephalopathy ? permanent damage Neuro consult EEG Cardiac Tachycardia--multifactorial, resolved. Respiratory Acute hypoxic resp failure d/t Overdose and aspiration PNA, required intuabation, now on room air, there is possibility of ongoing aspiration, and need frequent suctioning GI--no issues, feed as below, may need tube feed FEN--MENTAL HEALTH COORDINATOR recommend Puree+ HT Liq, but concern of aspiration and therefore may need tube feed ID--Treated for pneumonia, and propinibacterim acne had a fever 101 6/4, increased WBC , blood culture drawan and pending, fever resolved continue Cefepime and Vanco, ID consult Renal ATN related to rhabdo and shock--now on HD Hypercalcemia--unclear cause will discuss with Nephro Endocrine--no issues Need for inpatient:post icu care due to multiple issues as above, ongoing fever and work up , not eating and may need feeding tube Discussed clinical course and possibility of PEg with with health care proxy over the phone, prognosis is poor Procedures Date of Service Date of Service: 09/09/23
[2023-09-09 16:09] LABS: Glucose, Whole Blood 119 mg/dL (60-115)
[2023-09-09 18:31] LABS: ABG Refer to POC result
--- NOTE | 2023-09-09 20:31 | P.PNNP_ITS ---
Subjective Subjective Date of Service: 09/09/23 Interval history: Seen on HD this AM. D/W HD RN & hospitalist Physical Exam 2 Vital Signs: Vital Signs: Last Vital Signs Temp 99.1 F 09/09/23 19:42 Pulse 109 H 09/09/23 19:42 Resp 36 H 09/09/23 19:42 BP 148/84 H 09/09/23 19:42 Pulse Ox 97 09/09/23 19:42 O2 Del Method Room Air 09/09/23 19:42 O2 Flow Rate 2 09/06/23 15:00 FiO2 30 09/06/23 10:00 BMI result Body Mass Index 23.3 Const: General: no acute distress Neck: Neck: Yes supple Resp: Auscultation: diminished lung sounds Cardio: Rate: regular rate GI: Palpation (GI): Soft to palpation Neuro: Other: Flat affect Objective Data Labs 09/09/23 02:46 09/09/23 05:22 Labs: Laboratory Results - last 24 hr 09/08/23 09/08/23 09/08/23 20:56 23:49 23:55 WBC RBC Hgb Hct MCV MCH MCHC RDW Plt Count MPV Immature Gran % (Auto) Neut % (Auto) Lymph % (Auto) [place] % (Auto) Eos % (Auto) Baso % (Auto) Lymph # (Auto) [place] # (Auto) Eos # (Auto) Baso # (Auto) Abs Immat Gran (auto) Absolute Neuts (auto) Absolute Nucleated RBC Nucleated RBC % (auto) Smear Tech's Comments Hold Purple Top O2 Saturation ABG pH at Pt Temp ABG pCO2 at Pt Temp ABG pO2 at Pt Temp ABG HCO3 ABG Base Excess (Actual) VBG pH 7.54 H VBG pCO2 23 VBG pO2 107 VBG HCO3 20 L VBG O2 Saturation 99.0 VBG Base Excess -0.7 Sodium Potassium Chloride Carbon Dioxide Anion Gap BUN Creatinine Estim Creat Clear Calc Estimated GFR POC Glucose 91 Random Glucose Calcium B-Natriuretic Peptide 127 H 09/09/23 09/09/23 09/09/23 02:46 05:22 06:20 WBC 18.0 H RBC 2.63 L Hgb 7.7 L Hct 23.3 L MCV 88.6 MCH 29.3 MCHC 33.0 RDW 19.6 H Plt Count 354 MPV 10.4 Immature Gran % (Auto) 3.5 H Neut % (Auto) 64.7 Lymph % (Auto) 13.6 L [place] % (Auto) 10.2 Eos % (Auto) 6.8 H Baso % (Auto) 1.2 Lymph # (Auto) 2.5 [place] # (Auto) 1.8 H Eos # (Auto) 1.2 H Baso # (Auto) 0.2 Abs Immat Gran (auto) 0.63 H Absolute Neuts (auto) 11.6 H Absolute Nucleated RBC 0.000 Nucleated RBC % (auto) 0.0 Smear Tech's Comments VERIFIED Hold Purple Top SEE NOTE O2 Saturation ABG pH at Pt Temp ABG pCO2 at Pt Temp ABG pO2 at Pt Temp ABG HCO3 ABG Base Excess (Actual) VBG pH VBG pCO2 VBG pO2 VBG HCO3 VBG O2 Saturation VBG Base Excess Sodium 143 Potassium 3.5 Chloride 105 Carbon Dioxide 20 L Anion Gap 22 H BUN 78 H Creatinine 3.18 H Estim Creat Clear Calc 25.3 Estimated GFR 20 POC Glucose 106 Random Glucose 98 Calcium 12.7 H* B-Natriuretic Peptide 09/09/23 09/09/23 09/09/23 10:17 11:24 16:05 WBC RBC Hgb Hct MCV MCH MCHC RDW Plt Count MPV Immature Gran % (Auto) Neut % (Auto) Lymph % (Auto) [place] % (Auto) Eos % (Auto) Baso % (Auto) Lymph # (Auto) [place] # (Auto) Eos # (Auto) Baso # (Auto) Abs Immat Gran (auto) Absolute Neuts (auto) Absolute Nucleated RBC Nucleated RBC % (auto) Smear Tech's Comments Hold Purple Top O2 Saturation 98.0 ABG pH at Pt Temp 7.50 H ABG pCO2 at Pt Temp 23 L ABG pO2 at Pt Temp 99 ABG HCO3 18 L ABG Base Excess (Actual) -2.7 VBG pH VBG pCO2 VBG pO2 VBG HCO3 VBG O2 Saturation VBG Base Excess Sodium Potassium Chloride Carbon Dioxide Anion Gap BUN Creatinine Estim Creat Clear Calc Estimated GFR POC Glucose 135 H 119 H Random Glucose Calcium B-Natriuretic Peptide Microbiology Microbiology Results: Microbiology 09/08/23 03:22 Blood - Venous Blood Culture - Preliminary No growth after 24 hours. 09/08/23 03:22 Blood - Venous Blood Culture - Preliminary No growth after 24 hours. 08/20/23 16:53 Lung - Suctioned Gram Stain - Final 08/20/23 16:53 Lung - Suctioned Sputum Culture - Final Stefanie albicans Stefanie dubliniensis 08/19/23 02:59 Blood - Venous Blood Culture - Final Propionibacterium acnes 08/19/23 02:59 Blood - Venous Blood Culture - Final Propionibacterium acnes 08/19/23 Unknown Urine Catheterized - Bess Catheter Urine Culture - Final No growth. Procedures Date of Service Date of Service: 09/09/23 Assessment & Plan Assessment and plan (1) NAOMI (acute kidney injury): Status: Acute Plan NAOMI due to tubular injury secondary to pigment nephropathy/rhabdomyolysis. No renal recovery yet. Seen on HD. Volume optimization on HD In view of uremia and severe hypercalcemia we will continue with hemodialysis until renal recovery. She will plan for another dialysis session on 09/11/2023. Will need to reduce calcium in dialysate if ca remains high Shall monitor for renal recovery; C/W rest of current management for now Progress Note: Quality Stroke Does the patient have a stroke diagnosis?: No
[2023-09-09 21:07] LABS: Glucose, Whole Blood 114 mg/dL (60-115)
--- NOTE | 2023-09-09 23:50 | W.PM.IDCN ---
History of Present Illness Data of Consult Service Date: 09/09/23 Requesting physician: Mehdi Garcia Primary Care Provider: Patrick Ly MD HPI Reason for consult: concern over infection He has been in ICU due to being found after OD. He has OUD and bipolar. He has been treated for presumed aspiration pneumonia,Cefepime and Vancomycin Blood culture negative 48 hours. He has isolated temperature to 101 daily x2. CXR no focal infiltrate. Review of Systems Review of Systems: Yes Unobtainable due to mental condition [facility] Past Medical History Medical History (Updated 09/10/23 @ 08:14 by Michelle Prieto MD) Fever, unknown origin Low TSH level Alcohol dependence Opioid abuse Chest pain Weight loss Dysphagia Major depressive disorder, 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 GERD (gastroesophageal reflux disease) Anxiety Family History Family History Father HTN (hypertension) Diabetes Mother HTN (hypertension) Stroke Alzheimer disease Heart disease Family history: reviewed and not pertinent Surgical History Surgical History History of colonoscopy History of cystoscopy H/O umbilical hernia repair Social History Social History Household Members: Unknown / Unable to assess Housing: Unknown / Unable to assess Do you presently have visiting nurse or other home services: Yes Alcohol intake: former Comment: bilateral wrist restraints for airway safety Patient Tobacco Use Status: Tobacco use Unknown Tobacco use type: Cigarette Cigarette Packs Per Day: 12 Cigarettes Per Day: 240.0 Years Smoked: 12 e-Cigarette/Vaping Use: Never Used Second Hand Smoke Exposure: Yes Substance Use Type: Unknown Advance Directives Date on File: 02/14/20 service: No Current occupational status: unemployed and disabled Sexual orientation: Straight/Heterosexual Meds Allergies Allergy/AdvReac Type Severity Reaction Status Date / Time trazodone [TRAZODONE] Allergy Severe FACIAL Verified 08/19/23 02:58 SWELLING, swelling cat dander [CATS] Allergy Intermediate FACIAL Verified 08/19/23 02:58 ITCHING doxepin [DOXEPIN] Allergy Intermediate WEIGHT Verified 08/19/23 02:58 GAIN/LEG SWELLING Iodinated Contrast Media Allergy Intermediate ITCHING Verified 08/19/23 02:58 [IV DYE, IODINE CONTAINING CONTRAST ] nitroglycerin [NITROGLYCERIN] Allergy Unknown UNKNOWN Verified 08/19/23 02:58 tramadol [TRAMADOL] Allergy Unknown UNKNOWN, Verified 08/19/23 02:58 dry mouth ibuprofen [From MOTRIN] AdvReac Intermediate GI UPSET Verified 08/19/23 02:58 quetiapine [From SEROQUEL] AdvReac Intermediate FACIAL Verified 08/19/23 02:58 SWELLING aspirin [ASPIRIN] AdvReac Mild Stomach Verified 08/19/23 02:58 Upset Ibuprofen Allergy Unknown stomach Uncoded 08/19/23 02:58 ache IV contrast Allergy Unknown Unknown Uncoded 08/03/23 20:27 Motrin Allergy Unknown stomach Uncoded 08/03/23 20:27 pain Active Medications: Current Medications Acetaminophen (Acetaminophen Supp 650 Mg Supp.Rect) 650 mg ID Q4H PRN PRN Reason: Fever >100.4 Last Admin: 09/09/23 05:51 Dose: 650 mg Amlodipine Besylate (Amlodipine Besylate 10 Mg Tablet) 10 mg PO DAILY [facility]; Protocol Last Admin: 09/09/23 08:21 Dose: Not Given Glucose (Glucose Gel 15 Gm Gel..Gram.) 15 gm PO Q15M PRN; Protocol PRN Reason: per Hypoglycemia Standing Ord. Heparin Sodium (Porcine) (Heparin Sodium,Porcine 5,000 Unit/Ml Vial) 5,000 unit SUBCUT Q8H [facility] Last Admin: 09/09/23 21:01 Dose: 5,000 unit Cefepime HCl 2 gm/ Sodium (Chloride) 50 mls @ 100 mls/hr IV Q24H [facility] Last Infusion: 09/09/23 07:15 Dose: Infused Dextrose (D10) 250 mls @ 750 mls/hr IV Q15M PRN; Protocol PRN Reason: per Hypoglycemia Standing Ord. Vancomycin HCl 500 mg/ Sodium (Chloride) 110 mls @ 110 mls/hr IV Q24H [facility] Last Infusion: 09/09/23 02:30 Dose: Infused Nystatin (Nystatin Cream 15 Gm Tube) 1 appl TOPICAL BID [facility]; Protocol Last Admin: 09/09/23 08:21 Dose: Not Given Pantoprazole Sodium (Pantoprazole Sodium 40 Mg/10 Ml Vial) 40 mg IVPUSH DAILY@0630 [facility] Last Admin: 09/09/23 06:07 Dose: 40 mg Pharmacy Consult (Consult Rx Vancomycin Dosing) 1 each MISCELLANE DAILY PRN PRN Reason: Consult order Sodium Chloride (0.9 % Sodium Chloride Flush 3 Ml Syringe) 3 ml IVFLUSH QSHIFT [facility] Last Admin: 09/09/23 21:01 Dose: 3 ml Home Medications ?Medication ?Instructions ?Recorded ?Confirmed ?Last Taken ?Type albuterol sulfate 90 mcg/actuation 2 puff inhalation Q4-6H PRN 08/19/23 08/19/23 Unknown History aerosol inhaler (Ventolin HFA) Shortness Of Breath Or Wheezing capsaicin 0.025 % topical cream 1 appl topical TID 08/19/23 08/19/23 Unknown History cetirizine 10 mg tablet 10 mg PO DAILY 08/19/23 08/19/23 Unknown History cholecalciferol (vitamin D3) 25 25 mcg PO DAILY 08/19/23 08/19/23 Unknown History mcg (1,000 unit) capsule diphenhydramine HCl 25 mg tablet 25 mg PO Q6H PRN Itching 08/19/23 08/19/23 Unknown History (Sindy-Dryl) fluticasone propionate 50 1 - 2 spray intranasal DAILY 08/19/23 08/19/23 Unknown History mcg/actuation nasal spray,suspension loperamide 2 mg tablet 2 mg PO Q6H PRN Loose Stool 08/19/23 08/19/23 Unknown History (Anti-Diarrheal (loperamide)) metformin 500 mg tablet,extended 500 mg PO QPM 08/19/23 08/19/23 Unknown History release 24 hr mirtazapine 15 mg tablet 15 mg PO BEDTIME 08/19/23 08/19/23 Unknown History ondansetron 4 mg disintegrating 4 mg PO Q8H PRN nausea/vomiting 08/19/23 08/19/23 Unknown History tablet polyethylene glycol 3350 17 17 g PO BID PRN constipation 08/19/23 08/19/23 Unknown History gram/dose oral powder selenium sulfide 2.5 % lotion 1 appl topical 3XW PRN DANDRUFF 08/19/23 08/19/23 Unknown History sennosides 8.6 mg tablet (senna) 8.6 mg PO BEDTIME PRN Constipation 08/19/23 08/19/23 Unknown History Physical Exam Vital Signs: Vital Signs: Last Vital Signs Temp 99.1 F 09/09/23 19:42 Pulse 109 H 09/09/23 19:42 Resp 25 H 09/09/23 20:00 BP 148/84 H 09/09/23 19:42 Pulse Ox 97 09/09/23 19:42 O2 Del Method Room Air 09/09/23 19:42 O2 Flow Rate 2 09/06/23 15:00 FiO2 30 09/06/23 10:00 BMI result Body Mass Index 23.3 Const: Other: somnolent,eyes rolling back HEENT: Head: Yes normal to inspection Face and sinus: Yes normal facial exam Mouth: Normal oral and palatal mucosa present Teeth and gingiva: dentition normal Eyes: General: appearance normal, both eyes and all related structures Pupils: Equal, round and reactive pupils present Resp: Effort & Inspection: able to speak in complete sentences Cardio: Rate: regular rate Rhythm: regular rhythm GI: Palpation (GI): Soft to palpation and nontender : General: Yes no CVA tenderness Back/Spine/Pelvis: Other: right buttock large ulcer Back: no CVA tenderness Skin: Other: right neck catheter General skin exam: no rashes or lesions noted Neuro: General: moves all extremities Cranial nerves: Yes Equal, round and reactive pupils present Extrem: General: Yes normal to inspection Psych: Appearance: grossly normal Results Labs 09/09/23 02:46 09/10/23 06:09 Labs: Short CBC 09/09/23 Range/Units 02:46 WBC 18.0 H (4.8-10.8) X10*3/uL Hgb 7.7 L (14.0-18.0) g/dl Hct 23.3 L (42.0-52.0) % Plt Count 354 (160-400) X10*3/uL BMP 09/09/23 05:22 Sodium 143 Potassium 3.5 Chloride 105 Carbon Dioxide 20 L BUN 78 H Creatinine 3.18 H Calcium 12.7 H* Microbiology Microbiology Results: Microbiology 09/08/23 03:22 Blood - Venous Blood Culture - Preliminary No growth after 24 hours. 09/08/23 03:22 Blood - Venous Blood Culture - Preliminary No growth after 24 hours. 08/20/23 16:53 Lung - Suctioned Gram Stain - Final 08/20/23 16:53 Lung - Suctioned Sputum Culture - Final Stefanie albicans Stefanie dubliniensis 08/19/23 02:59 Blood - Venous Blood Culture - Final Propionibacterium acnes 08/19/23 02:59 Blood - Venous Blood Culture - Final Propionibacterium acnes 08/19/23 Unknown Urine Catheterized - Bess Catheter Urine Culture - Final No growth. Assessment and Plan (1) Metabolic encephalopathy: Status: Acute (2) Fever, unknown origin: Status: Acute Plan He has leukocytosis and intermittent fever. He has lethargy and getting speech evaluation. He is post OD and has residual encephalopathy. There are no signs of sepsis but has Bess and line in neck He may have ongoing chemical aspiration from oral secretions as well causing fever. Would stop Vancomycin since no bacteremia at this time. Would hold Cefepime as well if no gram negative identified and this can contribute to encephalopathy as well. Remove neck line and Bess when able as devices can contribute to fever. Check echo evaluate for endocarditis. Check HIV and Hepatitis C. If fever persists check for PE and CT abdomen and pelvis evaluate masses/obstruction as well and check EEG for seizures if not done in ICU.
[2023-09-10] VITALS (10 sets, daily range): BP systolic 141–159; BP diastolic 77–97; PULSE 110–129; RESP 20–34; TEMP 36.6–39.3; O2SAT 91–97
[2023-09-10] MEDS: vancomycin HCL 500 MG in 0.9 % Sodium Chloride 100 ML 110 MG IV (00:14)
[2023-09-10] MEDS: Nystatin Cream 15 GM TUBE 1 APPL TOPICAL ×3 (00:14→21:02)
[2023-09-10] MEDS: 0.9 % Sodium Chloride Flush 3 ML SYRINGE IVFLUSH ×3 (00:15→19:30)
[2023-09-10] MEDS: cefEPime HCl 2 GM in 0.9 % Sodium Chloride 50 ML IV (03:30)
[2023-09-10] MEDS: Pantoprazole Sodium 40 MG/10 ML VIAL IVPUSH (04:57)
[2023-09-10] MEDS: Heparin Sodium,Porcine 5,000 UNIT/ML VIAL 5000 UNIT SUBCUT ×3 (04:57→20:50)
[2023-09-10 06:36] LABS: Creatinine Clr Calc Pharmacy 21.7; Estimated Glomerular Filt Rate 17
[2023-09-10 06:48] LABS: Glucose, Whole Blood 135 mg/dL (60-115)
[2023-09-10 07:50] LABS: Anion Gap 29 (12-20); Carbon Dioxide 15 mmol/L (22-29); Chloride 96 mmol/L (96-108); Potassium 4.7 mmol/L (3.3-5.1); Sodium 135 mmol/L (135-145)
[2023-09-10 08:31] LABS: Glucose, Whole Blood 162 mg/dL (60-115)
[2023-09-10 08:35] LABS: Hematocrit 29.2 % (42.0-52.0); Hemoglobin 9.7 g/dl (14.0-18.0); Mean Corpuscular HGB Conc 33.2 g/dl (31.0-36.0); Mean Corpuscular Hemoglobin 29.7 pg (27.0-33.0); Mean Corpuscular Volume 89.3 fL (80.0-98.0); Mean Platelet Volume 10.3 fL (9.4-12.4); NRBC Pct Auto 0.3 /100WBC (0.0-0.2); Platelet Count 444 X10*3/uL (160-400); Red Blood Count 3.27 X10*6/uL (4.60-5.80); Red Cell Distribution Width 19.7 % (11.0-16.0); White Blood Count 27.3 X10*3/uL (4.8-10.8)
[2023-09-10 08:56] LABS: ABG Base Excess -6.5 mmol/L; ABG HCO3 15 mmol/L (22-26); ABG pCO2 20 mmHg (32-45); ABG pH 7.46 (7.35-7.45); ABG pO2 80 mmHg (83-108)
--- NOTE | 2023-09-10 10:52 | MHC.SL.SWA ---
Speech Pathologist Impression: Risk of aspiration, oropharyngeal dysphagia Risk of Aspiration Due to: Lethargy Hx of Recent Extubation Dysphasia Diet Status: No change at this time Liquid Consistency and Strategies for Safe Swallow: Liquid Intake Recommendation: NPO Solid Food Consistency: Dietary Recommendations: NPO Additional Modifications to Solid Foods: Patient staring off into the distance and not following commands. When given trace amount of liquid, note spilling from mouth and absent swallow trigger. At this time, recommend continue NPO status. Continue with frequent oral care for hygiene and comfort. Patient has been minimally responsive and with poor PO intake. He may benefit from consult w/ RD/GI for feeding tube options. Oral Medication Intake: NPO Please contact the pharmacy regarding appropriate crushable or liquid drug formulations that are available whenever modified delivery is recommended. Supervision While Eating and Drinking for Safe Swallow: PO with MOTEL OPERATOR Swallowing Recommended Treatments: Gustatory Stimulation Compens. Strategy Educat. Recommendation for Speech: Inpatient Speech Therapy MOTEL OPERATOR to re-evaluate tomorrow a.m. [place] Tour Guide Clinican/Clinical Fellow: No Supervisory Statement: I have reviewed and agree with the student/clinical fellow's documentation: N/A Speech Language Pathologist: Flora Yung M.A., CCC-MOTEL OPERATOR
--- NOTE | 2023-09-10 10:55 | MHC.CLN ---
F/U TRACTOR DISTRIBUTOR RECOMMENDING NPO DAY 2 PT WITH POOR PO AND INCREASED NUTRITION RISK IF TUBE FEEDING NEEDED; RECOMMEND NEPRO AT MAX GOAL RATE 45ML/HR TO PROVIDE 1944KCALS (28KCALS/KG), 87G PROTEIN (1.25G/KG), 785ML FREE WATER FROM FORMULA MONITOR TOLERANCE, RESIDUALS AND LYTES IF PPN NEEDED; CONSULT RD FOLLOWING WITH TEAM
[2023-09-10 11:48] LABS: Vancomycin Random 35.3 mcg/mL (15-20)
[2023-09-10] MEDS: amLODIPine Besylate 10 MG TABLET PO (11:54)
[2023-09-10 13:00] LABS: Glucose, Whole Blood 124 mg/dL (60-115)
--- NOTE | 2023-09-10 13:18 | HO.PM.IMPN ---
Subjective Subjective Date of Service: 09/10/23 Interval History: Patient remains very sick, awake otherwise not responsive, inermittent iregular breathing, had an episode of hyperventilation this morning that improved with deep suctioning, he continues to experience high grade fever and WBC rising, repeat cultures are negative at 48hrs. Physical Exam Vital Signs: Vital Signs: Last Vital Signs Temp 101.8 F H 09/10/23 11:31 Pulse 114 H 09/10/23 11:31 Resp 20 09/10/23 11:31 BP 159/97 H 09/10/23 11:31 Pulse Ox 97 09/10/23 11:31 O2 Del Method Room Air 09/10/23 11:31 O2 Flow Rate 2 09/06/23 15:00 FiO2 30 09/06/23 10:00 BMI result Body Mass Index 23.3 General: awake, o/w unresponsive, blank stare Resp: Jon rhonchi CVS: S1,S2,RRR GI: +BS, NT, no distention Skin: No rash Neuro: limited exam Psych: not able to assess, Objective Data Active Medications Acetaminophen (Acetaminophen Supp 650 Mg Supp.Rect) 650 mg SC Q4H PRN PRN Reason: Fever >100.4 Last Admin: 09/09/23 05:51 Dose: 650 mg Documented By: LUMA Amlodipine Besylate (Amlodipine Besylate 10 Mg Tablet) 10 mg PO DAILY [facility]; Protocol Last Admin: 09/10/23 11:54 Dose: 10 mg Documented By: KENYA Glucose (Glucose Gel 15 Gm Gel..Gram.) 15 gm PO Q15M PRN; Protocol PRN Reason: per Hypoglycemia Standing Ord. Heparin Sodium (Porcine) (Heparin Sodium,Porcine 5,000 Unit/Ml Vial) 5,000 unit SUBCUT Q8H [facility] Last Admin: 09/10/23 11:54 Dose: 5,000 unit Documented By: KENYA Cefepime HCl 2 gm/ Sodium (Chloride) 50 mls @ 100 mls/hr IV Q24H [facility] Last Infusion: 09/10/23 04:00 Dose: Infused Documented By: YARY Dextrose (D10) 250 mls @ 750 mls/hr IV Q15M PRN; Protocol PRN Reason: per Hypoglycemia Standing Ord. Nystatin (Nystatin Cream 15 Gm Tube) 1 appl TOPICAL BID [facility]; Protocol Last Admin: 09/10/23 11:53 Dose: 1 appl Documented By: KENYA Pantoprazole Sodium (Pantoprazole Sodium 40 Mg/10 Ml Vial) 40 mg IVPUSH DAILY@629 [facility] Last Admin: 09/10/23 04:57 Dose: 40 mg Documented By: YARY Pharmacy Consult (Consult Rx Vancomycin Dosing) 1 each MISCELLANE DAILY PRN PRN Reason: Consult order Sodium Chloride (0.9 % Sodium Chloride Flush 3 Ml Syringe) 3 ml IVFLUSH QSHIFT [facility] Last Admin: 09/10/23 11:54 Dose: 3 ml Documented By: KENYA Labs 09/10/23 07:49 09/10/23 06:09 Labs: Laboratory Results - last 24 hr 09/09/23 09/09/23 09/10/23 16:05 20:59 06:09 MCV MCH MCHC RDW Plt Count MPV Absolute Nucleated RBC Nucleated RBC % (auto) O2 Saturation ABG pH at Pt Temp ABG pCO2 at Pt Temp ABG pO2 at Pt Temp ABG HCO3 ABG Base Excess (Actual) Anion Gap 29 H Estim Creat Clear Calc 21.7 Estimated GFR 17 POC Glucose 119 H 114 Random Vancomycin 09/10/23 09/10/23 09/10/23 06:43 07:49 08:27 MCV 89.3 MCH 29.7 MCHC 33.2 RDW 19.7 H Plt Count 444 H D MPV 10.3 Absolute Nucleated RBC 0.080 H Nucleated RBC % (auto) 0.3 H O2 Saturation ABG pH at Pt Temp ABG pCO2 at Pt Temp ABG pO2 at Pt Temp ABG HCO3 ABG Base Excess (Actual) Anion Gap Estim Creat Clear Calc Estimated GFR POC Glucose 135 H 162 H Random Vancomycin 09/10/23 09/10/23 09/10/23 08:47 11:00 12:56 MCV MCH MCHC RDW Plt Count MPV Absolute Nucleated RBC Nucleated RBC % (auto) O2 Saturation 94.0 ABG pH at Pt Temp 7.46 H ABG pCO2 at Pt Temp 20 L* ABG pO2 at Pt Temp 80 L ABG HCO3 15 L ABG Base Excess (Actual) -6.5 Anion Gap Estim Creat Clear Calc Estimated GFR POC Glucose 124 H Random Vancomycin 35.3 H* Microbiology Microbiology Results: Microbiology 09/08/23 03:22 Blood Culture - Preliminary Blood - Venous No growth after 48 hours. 09/08/23 03:22 Blood Culture - Preliminary Blood - Venous No growth after 48 hours. Assessment and Plan (1) Metabolic encephalopathy: Status: Acute (2) Polysubstance abuse: Status: Acute (3) Aspiration pneumonia: Status: Acute (4) Acute hypoxemic respiratory failure: Status: Acute (5) NAOMI (acute kidney injury): Status: Acute (6) Rhabdomyolysis: Status: Acute (7) Multifocal pneumonia: Status: Acute Plan 53-make admitted through the ICU on 08/18, His past medical history includes depression, GERD, dysphagia, BPH, bipolar disorder, anemia, alcohol and opiate abuse, anxiety, GI bleed, achalasia status post heller myotomy and balloon dilations. He was found unresponsive at home with pinpoint pupils and apnea, requiring intubation by EMS. He was also diagnosed with rhabdomyolysis, acute kidney injury (NAOMI), and shock, for which he was started on levophed. Additionally, he developed aspiration pneumonia and was found to have gram-negative fitz sepsis, gastrointestinal bleed, and acute blood anemia. The patient remained intubated from admikssion until September 05 and was transferred to the medical floor on September 06. He initiated hemodialysis due to renal failure, likely acute tubular necrosis (ATN) associated with uremia, and continues on dialysis. Neuro Metabolic encephalopathy d/t acute illness and likely anoxic encephalopathy as evident on MRI, and confirmed by Neurologist. Prognosis is guarded EEG today Cardiac Tachycardia--multifactorial, resolved. Respiratory Acute hypoxic resp failure d/t Overdose and aspiration PNA, required intuabation, now on room air, there is possibility of ongoing aspiration, and need frequent suctioning GI--no issues, feed as below, may need tube feed FEN--NPO, starting tube feed per nutritional recommendation, family to decide on PEG ID--Treated for pneumonia, and propinibacterim acne had a fever 101 6/4, increased WBC , blood cultures negative at 48, and pending. Persistent fever could be central fever from anoxic brain injury ID recommends holding Abx. Will get Echo, check HIV, Hep Renal ATN related to rhabdo and shock--dialysis on hold Hypercalcemia--unclear cause will discuss with Nephro, check PTH Endocrine--no issues Need for inpatient:post icu care due to multiple issues as above, ongoing fever and work up , not eating and may need feeding tube Discussed clinical course and possibility of PEg with with health care proxy over the phone, prognosis is poor heparin for dvt prophylaxis Quality Stroke Does the patient have a stroke diagnosis?: No VTE Prior VTE?: No VTE Risk Level:: Medical - low VTE Device Contraindication: N/A - Device Ordered VTE Drug Contraindication: N/A - Med Ordered
--- NOTE | 2023-09-10 13:27 | CA_ITS ---
Transthoracic Echocardiogram Patient (Last, First, Middle): Jerson Taveras, Gender: Male Date of : 1970 Age: 53 Procedure Date: 09/10/2023 Procedure Type: Transthoracic [place] [facility] [place]: 172.72 cm Weight: 69.4 kg BSA: 1.82 m2 Heart Rate: bpm BP: 159 / 97 mmHg Manager Project Management: BENNETT Solis MD: Mehdi Garcia MD Stringer Machine Tender: Fortunato Huizar MD Symptoms: fever, check for endocarditisi Study Quality: Fair/Contrast ECG Rhythm: Sinus Conclusions: - 1. No obvious vegetation seen on this study although studies limited for right-sided heart valves 2. Normal LV ejection fraction with LVEF of 60-65% 3. Normal cardiac valvular Doppler Findings Procedure Information The patient receives contrast. Left Ventricle Normal left ventricular size, thickness, and systolic function. The visually estimated ejection fraction is between 60-65%. Spectral Doppler is indicative of an impaired relaxation filling pattern. E/E prime ratio is <8, consistent with normal filling pressures. Evidence suggests grade I (mild) diastolic dysfunction. Right Ventricle The right ventricle was not well visualized. Atria The left atrium was not well visualized. Interatrial shunt cannot be excluded. The right atrium was not well visualized. Aortic Valve The aortic valve structure and function is likely normal. There is no aortic valve stenosis. There is no aortic valve regurgitation. Mitral Valve Likely normal mitral valve structure and function. There is no mitral valve regurgitation. There is no mitral valve stenosis. Pulmonic Valve The pulmonic valve was not well visualized. Tricuspid Valve The tricuspid valve was not well visualized. Tricuspid regurgitation envelope is inadequate for calculation of right ventricular systolic pressure. Normal right atrial pressure. Great Vessels All visible segments of the aorta are normal in size. The pulmonary artery was not well visualized. Venous The inferior vena cava is normal in size and collapses greater than 50% with inspiration. Pericardium/Pleural The pericardium was not well visualized. Prior Study Comparison No significant change compared to prior study dated: 07/08/2021. Recommendations, Care & Conclusions Consider a YRIS if clinically appropriate. Measurements 2D Linear Measurements IVSd: 1.02 0.6-0.9/0.6-1.0 cm LVIDd: 3.78 3.9-5.3/4.2-5.9 cm LVIDd Index: 2.08 2.4-3.2/2.2-3.1 cm/m2 LVIDs: 2.78 2.0-3.6 cm LVPWd: 1.09 0.7-1.1 cm Ao Root: 3.40 2.1-3.5 cm LA Diam: 2.70 2.7-3.8/3.0-4.0 cm LAIDs Index: 1.48 1.5-2.3 cm/m2 LV Mass: 156.34 67-162/88-224 g LV Mass Index: 85.90 43-95/49-115 g/m2 LVOT Diam: 2.10 3.0+(-)1.3 cm 2D Systolic Function EF 4C: 59.60 >55% EF 2C: 69.20 >55% EF BiP: 64.90 >55% Mitral Valve MV Pk E: 0.59 MV PK A: 0.84 MV Decel Time: 140.00 E/A: 0.70 E'Lateral: 7.29 E'Medial: 6.20 E/E' Med: 9.50 E/E' Lat: 8.10 PHT: 41.00 MVA PHT: 5.37 Decel [place]: 4.21 Aortic Valve AoV Pk Andres: 1.26 AoV Mn Andres: 0.83 AoV VTI: 0.17 AoV Pk Grad: 6.00 Aov Mn Grad: 3.00 DAISHA Cont.VTI: 2.97 LVOT LVOT Pk Andres: 1.04 LVOT Mn Andres: 0.64 LVOT VTI: 0.15 LVOT Pk Grad: 4.00 LVOT Mn Grad: 2.00 LVOT Diam: 2.10 LVOT Area: 3.46 Diastolic Function MV Pk E: 0.59 MV Pk A: 0.84 E/A: 0.70 E'Medial: 6.20 E/E' Med: 9.50 E' Laterial: 7.29 E/E' Lat: 8.10 Right Ventricle TAPSE (mm): 24.00 TVS' Andres: 19.00 Tricuspid Valve RA Press: 8.00 Great Vessels Aorta Ao Root-2D: 3.40 2.0-3.7 cm Ao Asc: 3.10 2.1-3.4 cm Ao Arch: 2.30 Updated in Other Vendor System with Status of Final Fortunato Bhupendra MD electronically signed on 09/10/2023 3:44:12 PM with status of Final
--- NOTE | 2023-09-10 13:45 | P.PNNP_ITS ---
Subjective Subjective Date of Service: 09/10/23 Interval history: Events noted. Ill-appearing. Undergoing EEG Physical Exam 2 Vital Signs: Vital Signs: Last Vital Signs Temp 101.8 F H 09/10/23 11:31 Pulse 114 H 09/10/23 11:31 Resp 20 09/10/23 11:31 BP 159/97 H 09/10/23 11:31 Pulse Ox 97 09/10/23 11:31 O2 Del Method Room Air 09/10/23 11:31 O2 Flow Rate 2 09/06/23 15:00 FiO2 30 09/06/23 10:00 BMI result Body Mass Index 23.3 Const: General: ill appearing Neck: Neck: Yes supple Resp: Auscultation: clear to auscultation bilaterally Cardio: Palpation: no palpable S3 Heart sounds: no rubs GI: Palpation (GI): Soft to palpation Auscultation: normal bowel sounds Neuro: Motor exam (neuro): no asterixis Objective Data Labs 09/10/23 07:49 09/10/23 06:09 Labs: Laboratory Results - last 24 hr 09/09/23 09/09/23 09/10/23 16:05 20:59 06:09 WBC RBC Hgb Hct MCV MCH MCHC RDW Plt Count MPV Absolute Nucleated RBC Nucleated RBC % (auto) O2 Saturation ABG pH at Pt Temp ABG pCO2 at Pt Temp ABG pO2 at Pt Temp ABG HCO3 ABG Base Excess (Actual) Sodium 135 Potassium 4.7 D Chloride 96 Carbon Dioxide 15 L Anion Gap 29 H Creatinine 3.71 H Estim Creat Clear Calc 21.7 Estimated GFR 17 POC Glucose 119 H 114 Random Vancomycin 09/10/23 09/10/23 09/10/23 06:43 07:49 08:27 WBC 27.3 H RBC 3.27 L D Hgb 9.7 L D Hct 29.2 L D MCV 89.3 MCH 29.7 MCHC 33.2 RDW 19.7 H Plt Count 444 H D MPV 10.3 Absolute Nucleated RBC 0.080 H Nucleated RBC % (auto) 0.3 H O2 Saturation ABG pH at Pt Temp ABG pCO2 at Pt Temp ABG pO2 at Pt Temp ABG HCO3 ABG Base Excess (Actual) Sodium Potassium Chloride Carbon Dioxide Anion Gap Creatinine Estim Creat Clear Calc Estimated GFR POC Glucose 135 H 162 H Random Vancomycin 09/10/23 09/10/23 09/10/23 08:47 11:00 12:56 WBC RBC Hgb Hct MCV MCH MCHC RDW Plt Count MPV Absolute Nucleated RBC Nucleated RBC % (auto) O2 Saturation 94.0 ABG pH at Pt Temp 7.46 H ABG pCO2 at Pt Temp 20 L* ABG pO2 at Pt Temp 80 L ABG HCO3 15 L ABG Base Excess (Actual) -6.5 Sodium Potassium Chloride Carbon Dioxide Anion Gap Creatinine Estim Creat Clear Calc Estimated GFR POC Glucose 124 H Random Vancomycin 35.3 H* Microbiology Microbiology Results: Microbiology 09/08/23 03:22 Blood - Venous Blood Culture - Preliminary No growth after 48 hours. 09/08/23 03:22 Blood - Venous Blood Culture - Preliminary No growth after 48 hours. 08/20/23 16:53 Lung - Suctioned Gram Stain - Final 08/20/23 16:53 Lung - Suctioned Sputum Culture - Final Stefanie albicans Stefanie dubliniensis 08/19/23 02:59 Blood - Venous Blood Culture - Final Propionibacterium acnes 08/19/23 02:59 Blood - Venous Blood Culture - Final Propionibacterium acnes 08/19/23 Unknown Urine Catheterized - Bess Catheter Urine Culture - Final No growth. 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 No renal recovery yet. In view of uremia and severe hypercalcemia he was started on hemodialysis . Labs dialysis session on 09/09/2023 Shall re-evaluate tomorrow if he needs dialysis Watch urine output closely. Continue to avoid nephrotoxic agents. Overall prognosis guarded Time Spent With Patient Time: Total time managing care of this patient today ____ minutes. Progress Note: Quality Stroke Does the patient have a stroke diagnosis?: No
--- NOTE | 2023-09-10 14:54 | PM.CNGS ---
History of Present Illness Consult details Consult date: 09/10/23 Narrative: 63-year-old male referred for PEG tube placement. He was admitted to the ICU on 08/19/2023 after being found unresponsive at home. He was septic at that time. He was in hypoxemic respiratory failure and had been on the ventilator for several weeks. He was managed for pneumonia as well. He was just extubated 3 days ago He has poor oral intake. He is now currently managed by the hospitalist on the [facility] unit. Because of his poor intake, he was referred to me for possible PEG tube placement. He currently is on enteral feeds with an NG tube. Review of Systems Review of Systems: Yes unobtainable due to endotracheal tube and Unobtainable due to mental condition PMFSH Past Medical History Medical History Fever, unknown origin Low TSH level Alcohol dependence Opioid abuse Chest pain Weight loss Dysphagia Major depressive disorder, 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 GERD (gastroesophageal reflux disease) Anxiety Family History Family History Father HTN (hypertension) Diabetes Mother HTN (hypertension) Stroke Alzheimer disease Heart disease Family history: reviewed and not pertinent Surgical History Surgical History History of colonoscopy History of cystoscopy H/O umbilical hernia repair Social History Social History Household Members: Unknown / Unable to assess Housing: Unknown / Unable to assess Do you presently have visiting nurse or other home services: Yes Alcohol intake: former Comment: bilateral wrist restraints for airway safety Patient Tobacco Use Status: Tobacco use Unknown Tobacco use type: Cigarette Cigarette Packs Per Day: 12 Cigarettes Per Day: 240.0 Years Smoked: 12 e-Cigarette/Vaping Use: Never Used Second Hand Smoke Exposure: Yes Substance Use Type: Unknown Advance Directives Date on File: 02/14/20 service: No Current occupational status: unemployed and disabled Sexual orientation: Straight/Heterosexual Meds Allergies Allergy/AdvReac Type Severity Reaction Status Date / Time trazodone [TRAZODONE] Allergy Severe FACIAL Verified 08/19/23 02:58 SWELLING, swelling cat dander [CATS] Allergy Intermediate FACIAL Verified 08/19/23 02:58 ITCHING doxepin [DOXEPIN] Allergy Intermediate WEIGHT Verified 08/19/23 02:58 GAIN/LEG SWELLING Iodinated Contrast Media Allergy Intermediate ITCHING Verified 08/19/23 02:58 [IV DYE, IODINE CONTAINING CONTRAST ] nitroglycerin [NITROGLYCERIN] Allergy Unknown UNKNOWN Verified 08/19/23 02:58 tramadol [TRAMADOL] Allergy Unknown UNKNOWN, Verified 08/19/23 02:58 dry mouth ibuprofen [From MOTRIN] AdvReac Intermediate GI UPSET Verified 08/19/23 02:58 quetiapine [From SEROQUEL] AdvReac Intermediate FACIAL Verified 08/19/23 02:58 SWELLING aspirin [ASPIRIN] AdvReac Mild Stomach Verified 08/19/23 02:58 Upset Ibuprofen Allergy Unknown stomach Uncoded 08/19/23 02:58 ache IV contrast Allergy Unknown Unknown Uncoded 08/03/23 20:27 Motrin Allergy Unknown stomach Uncoded 08/03/23 20:27 pain Active Medications: Current Medications Acetaminophen (Acetaminophen Supp 650 Mg Supp.Rect) 650 mg VT Q4H PRN PRN Reason: Fever >100.4 Last Admin: 09/09/23 05:51 Dose: 650 mg Amlodipine Besylate (Amlodipine Besylate 10 Mg Tablet) 10 mg PO DAILY [facility]; Protocol Last Admin: 09/10/23 11:54 Dose: 10 mg Glucose (Glucose Gel 15 Gm Gel..Gram.) 15 gm PO Q15M PRN; Protocol PRN Reason: per Hypoglycemia Standing Ord. Heparin Sodium (Porcine) (Heparin Sodium,Porcine 5,000 Unit/Ml Vial) 5,000 unit SUBCUT Q8H [facility] Last Admin: 09/10/23 11:54 Dose: 5,000 unit Cefepime HCl 2 gm/ Sodium (Chloride) 50 mls @ 100 mls/hr IV Q24H [facility] Last Infusion: 09/10/23 04:00 Dose: Infused Dextrose (D10) 250 mls @ 750 mls/hr IV Q15M PRN; Protocol PRN Reason: per Hypoglycemia Standing Ord. Nystatin (Nystatin Cream 15 Gm Tube) 1 appl TOPICAL BID [facility]; Protocol Last Admin: 09/10/23 11:53 Dose: 1 appl Pantoprazole Sodium (Pantoprazole Sodium 40 Mg/10 Ml Vial) 40 mg IVPUSH DAILY@0630 [facility] Last Admin: 09/10/23 04:57 Dose: 40 mg Pharmacy Consult (Consult Rx Vancomycin Dosing) 1 each MISCELLANE DAILY PRN PRN Reason: Consult order Sodium Chloride (0.9 % Sodium Chloride Flush 3 Ml Syringe) [facility] Last Admin: 09/10/23 11:54 Dose: 3 ml Home Medications ?Medication ?Instructions ?Recorded ?Confirmed ?Last Taken ?Type albuterol sulfate 90 mcg/actuation 2 puff inhalation Q4-6H PRN 08/19/23 08/19/23 Unknown History aerosol inhaler (Ventolin HFA) Shortness Of Breath Or Wheezing capsaicin 0.025 % topical cream 1 appl topical TID 08/19/23 08/19/23 Unknown History cetirizine 10 mg tablet 10 mg PO DAILY 08/19/23 08/19/23 Unknown History cholecalciferol (vitamin D3) 25 25 mcg PO DAILY 08/19/23 08/19/23 Unknown History mcg (1,000 unit) capsule diphenhydramine HCl 25 mg tablet 25 mg PO Q6H PRN Itching 08/19/23 08/19/23 Unknown History (Sindy-Dryl) fluticasone propionate 50 1 - 2 spray intranasal DAILY 08/19/23 08/19/23 Unknown History mcg/actuation nasal spray,suspension loperamide 2 mg tablet 2 mg PO Q6H PRN Loose Stool 08/19/23 08/19/23 Unknown History (Anti-Diarrheal (loperamide)) metformin 500 mg tablet,extended 500 mg PO QPM 08/19/23 08/19/23 Unknown History release 24 hr mirtazapine 15 mg tablet 15 mg PO BEDTIME 08/19/23 08/19/23 Unknown History ondansetron 4 mg disintegrating 4 mg PO Q8H PRN nausea/vomiting 08/19/23 08/19/23 Unknown History tablet polyethylene glycol 3350 17 17 g PO BID PRN constipation 08/19/23 08/19/23 Unknown History gram/dose oral powder selenium sulfide 2.5 % lotion 1 appl topical 3XW PRN DANDRUFF 08/19/23 08/19/23 Unknown History sennosides 8.6 mg tablet (senna) 8.6 mg PO BEDTIME PRN Constipation 08/19/23 08/19/23 Unknown History Physical Exam Vital Signs: Vital Signs: Last Vital Signs Temp 101.8 F H 09/10/23 11:31 Pulse 114 H 09/10/23 11:31 Resp 20 09/10/23 11:31 BP 159/97 H 09/10/23 11:31 Pulse Ox 97 09/10/23 11:31 O2 Del Method Room Air 09/10/23 11:31 O2 Flow Rate 2 09/06/23 15:00 FiO2 30 09/06/23 10:00 BMI result Body Mass Index 23.3 Const: Other: Not communicative, appears extremely frail, with shortness of breath, Resp: Other: Continues to have shortness of breath Cardio: Rate: tachycardic GI: Palpation (GI): Soft to palpation, not firm and no guarding Results Labs 09/16/23 05:04 09/16/23 05:04 Labs: Abnormal lab results 09/09/23 09/10/23 09/10/23 Range/Units 16:05 06:09 06:43 WBC (4.8-10.8) X10*3/uL RBC (4.60-5.80) X10*6/uL Hgb (14.0-18.0) g/dl Hct (42.0-52.0) % RDW (11.0-16.0) % Plt Count (160-400) X10*3/uL Absolute Nucleated RBC (0.0-0.012) X10*3/uL Nucleated RBC % (auto) (0.0-0.2) /100WBC ABG pH at Pt Temp (7.35-7.45) ABG pCO2 at Pt Temp (32-45) mmHg ABG pO2 at Pt Temp (83-108) mmHg ABG HCO3 (22-26) mmol/L Carbon Dioxide 15 L (22-29) mmol/L Anion Gap 29 H (12-20) Creatinine 3.71 H (0.5-1.4) mg/dL POC Glucose 119 H 135 H (60-115) mg/dL Random Vancomycin (15-20) mcg/mL 09/10/23 09/10/23 09/10/23 Range/Units 07:49 08:27 08:47 WBC 27.3 H (4.8-10.8) X10*3/uL RBC 3.27 L D (4.60-5.80) X10*6/uL Hgb 9.7 L D (14.0-18.0) g/dl Hct 29.2 L D (42.0-52.0) % RDW 19.7 H (11.0-16.0) % Plt Count 444 H D (160-400) X10*3/uL Absolute Nucleated RBC 0.080 H (0.0-0.012) X10*3/uL Nucleated RBC % (auto) 0.3 H (0.0-0.2) /100WBC ABG pH at Pt Temp 7.46 H (7.35-7.45) ABG pCO2 at Pt Temp 20 L* (32-45) mmHg ABG pO2 at Pt Temp 80 L (83-108) mmHg ABG HCO3 15 L (22-26) mmol/L Carbon Dioxide (22-29) mmol/L Anion Gap (12-20) Creatinine (0.5-1.4) mg/dL POC Glucose 162 H (60-115) mg/dL Random Vancomycin (15-20) mcg/mL 09/10/23 09/10/23 Range/Units 11:00 12:56 WBC (4.8-10.8) X10*3/uL RBC (4.60-5.80) X10*6/uL Hgb (14.0-18.0) g/dl Hct (42.0-52.0) % RDW (11.0-16.0) % Plt Count (160-400) X10*3/uL Absolute Nucleated RBC (0.0-0.012) X10*3/uL Nucleated RBC % (auto) (0.0-0.2) /100WBC ABG pH at Pt Temp (7.35-7.45) ABG pCO2 at Pt Temp (32-45) mmHg ABG pO2 at Pt Temp (83-108) mmHg ABG HCO3 (22-26) mmol/L Carbon Dioxide (22-29) mmol/L Anion Gap (12-20) Creatinine (0.5-1.4) mg/dL POC Glucose 124 H (60-115) mg/dL Random Vancomycin 35.3 H* (15-20) mcg/mL Short CBC 09/10/23 Range/Units 07:49 WBC 27.3 H (4.8-10.8) X10*3/uL Hgb 9.7 L D (14.0-18.0) g/dl Hct 29.2 L D (42.0-52.0) % Plt Count 444 H D (160-400) X10*3/uL BMP 09/10/23 06:09 Sodium 135 Potassium 4.7 D Chloride 96 Carbon Dioxide 15 L Creatinine 3.71 H Urine 08/19/23 09/08/23 Range/Units 03:37 04:10 Urine Color Red A Yellow Urine Appearance Clear Cloudy Urine pH 6.5 6.5 (5.0-9.0) Ur Specific [place] 1.010 1.015 (1.005-1.025) Urine Protein 100 (2+) H 100 (2+) H (Neg-Trace) mg/dL Urine Glucose (UA) 100 H Negative (Negative) mg/dL All other labs normal. Assessment and Plan (1) Aspiration pneumonia: Status: Acute He still remains dyspneic, and continues to have high fevers. He has significant leukocytosis. It may be best to hold off on tube placement for now in view of his acute illness along with poor prognosis We can continue with enteric feeds via the NG tube. I have reviewed a recent CT scan of the abdomen and there seems to be a good window for PEG tube placement between the anterior wall of the stomach and the abdominal wall. We can plan of proceeding with PEG tube placement once he appears more stable in with resolution of ongoing acute issues. I have discussed the above with the hospitalist service. Procedures Date of Service Date of Service: 09/16/23
[2023-09-10 16:34] LABS: Glucose, Whole Blood 128 mg/dL (60-115)
[2023-09-10 18:00] LABS: ABG Refer to POC result
--- NOTE | 2023-09-10 18:25 | PC.NURSE ---
nepro 1.8 ilsa tube feed started at 1825, adjust rate by 10 every 3 hours, max rate 45, next adjust 21:25
[2023-09-10 21:25] LABS: Glucose, Whole Blood 129 mg/dL (60-115)
--- NOTE | 2023-09-10 21:40 | PC.RT ---
pt deep suctioned due to inc wob and unable to clear hos own secretions sats 96% pt improved after being suctioned
[2023-09-11] VITALS (21 sets, daily range): BP systolic 105–140; BP diastolic 64–84; PULSE 101–127; RESP 16–32; TEMP 35–37.9; O2SAT 94–100; BMI 23.3
[2023-09-11 02:13] LABS: Glucose, Whole Blood 130 mg/dL (60-115)
[2023-09-11] MEDS: cefEPime HCl 2 GM in 0.9 % Sodium Chloride 50 ML IV (04:08)
[2023-09-11] MEDS: 0.9 % Sodium Chloride Flush 3 ML SYRINGE IVFLUSH ×3 (04:09→16:29)
[2023-09-11] MEDS: Heparin Sodium,Porcine 5,000 UNIT/ML VIAL 5000 UNIT SUBCUT ×3 (04:19→18:20)
[2023-09-11] MEDS: Acetaminophen Supp 650 MG SUPP.RECT PR (04:20)
[2023-09-11 06:29] LABS: Glucose, Whole Blood 143 mg/dL (60-115)
[2023-09-11] MEDS: Pantoprazole Sodium 40 MG/10 ML VIAL IVPUSH (07:46)
[2023-09-11] MEDS: amLODIPine Besylate 10 MG TABLET PO (08:55)
[2023-09-11] MEDS: Nystatin Cream 15 GM TUBE 1 APPL TOPICAL (08:59)
[2023-09-11 09:09] LABS: Glucose, Whole Blood 153 mg/dL (60-115)
--- NOTE | 2023-09-11 09:16 | PC.NURSE ---
tube feed infusion rate increased to 45cc/ hr at 0915 AM. residual 0 ml and the ngt was flushed with 240 cc at 0915
--- NOTE | 2023-09-11 12:30 | MHC.CLN ---
F/U PT NOW WITH NGT IN PLACE PT RECEIVING NEPRO AT MAX GOAL RATE 45ML/HR WITH 240ML FREE WATER FLUSHES Q 6 HRS PROVIDES 1944KCALS (28KCALS/KG), 87G PROTEIN (1.25G/KG), 1745ML TOTAL FREE WATER FROM FORMULA AND FLUSHES (25ML/KG) MONITOR TOLERANCE, RESIDUALS AND LYTES
--- NOTE | 2023-09-11 12:40 | MHC.CM.PN ---
Pt has not been medically cleared for DC, he has a fever, is not eating, requires continued acute care. DCP is uncertain at this time. CM to follow for DC needs.
--- NOTE | 2023-09-11 12:46 | HO.PM.IMPN ---
Subjective Subjective Date of Service: 09/11/23 Interval History: Patient remains very sick, awake otherwise not responsive, inermittent iregular breathing with intermittent episodes of hyperventilation which resolved with suctioning, he seemed to be fairly stable in the morning, maintaining a normal oxygen saturation on room air, patient sudenly dropped O2 sat into the 60s and did not recovered with suctioning, a rapid responsive was called. Patient was in acute respiratory distress, Tube feeding was stopped and his sat came up with with NRB. I spoke to her daughter and Nephew who is health care proxy regarding goals of care and they maintain proceeding everthing possible Physical Exam Vital Signs: Vital Signs: Last Vital Signs Temp 97.0 F 09/11/23 10:57 Pulse 111 H 09/11/23 10:57 Resp 20 09/11/23 10:57 BP 137/77 09/11/23 10:57 Pulse Ox 97 09/11/23 10:57 O2 Del Method Room Air 09/11/23 10:57 O2 Flow Rate 2 09/06/23 15:00 FiO2 30 09/06/23 10:00 BMI result Body Mass Index 23.3 General: unresponse, stares in blank --unchanged Resp: luis angel rhonchi CVS: S1,S2,RRR tachy GI: +BS, NT, no distention Skin: No rash Neuro: moves spontaneously Psych:flat, not able to assess Objective Data Active Medications Acetaminophen (Acetaminophen Supp 650 Mg Supp.Rect) 650 mg SC Q4H PRN PRN Reason: Fever >100.4 Last Admin: 09/11/23 04:20 Dose: 650 mg Documented By: YARY Amlodipine Besylate (Amlodipine Besylate 10 Mg Tablet) 10 mg PO DAILY [facility]; Protocol Last Admin: 09/11/23 08:55 Dose: 10 mg Documented By: MARK Glucose (Glucose Gel 15 Gm Gel..Gram.) 15 gm PO Q15M PRN; Protocol PRN Reason: per Hypoglycemia Standing Ord. Heparin Sodium (Porcine) (Heparin Sodium,Porcine 5,000 Unit/Ml Vial) 5,000 unit SUBCUT Q8H [facility] Last Admin: 09/11/23 11:59 Dose: 5,000 unit Documented By: MARK Cefepime HCl 2 gm/ Sodium (Chloride) 50 mls @ 100 mls/hr IV Q24H [facility] Last Infusion: 09/11/23 04:38 Dose: Infused Documented By: YARY Dextrose (D10) 250 mls @ 750 mls/hr IV Q15M PRN; Protocol PRN Reason: per Hypoglycemia Standing Ord. Nystatin (Nystatin Cream 15 Gm Tube) 1 appl TOPICAL BID [facility]; Protocol Last Admin: 09/11/23 08:59 Dose: 1 appl Documented By: MARK Pantoprazole Sodium (Pantoprazole Sodium 40 Mg/10 Ml Vial) 40 mg IVPUSH DAILY@0630 [facility] Last Admin: 09/11/23 07:46 Dose: 40 mg Documented By: YARY Sodium Chloride (0.9 % Sodium Chloride Flush 3 Ml Syringe) 3 ml IVFLUSH QSHIFT [facility] Last Admin: 09/11/23 08:56 Dose: 3 ml Documented By: MARK Labs 09/11/23 13:05 09/11/23 13:05 Labs: Laboratory Results - last 24 hr 09/10/23 09/10/23 09/10/23 12:56 16:30 21:10 POC Glucose 124 H 128 H 129 H 09/11/23 09/11/23 09/11/23 02:09 06:25 09:04 POC Glucose 130 H 143 H 153 H Assessment and Plan (1) Metabolic encephalopathy: Status: Acute (2) Polysubstance abuse: Status: Acute (3) Aspiration pneumonia: Status: Acute (4) Acute hypoxemic respiratory failure: Status: Acute (5) NAOMI (acute kidney injury): Status: Acute (6) Rhabdomyolysis: Status: Acute (7) Multifocal pneumonia: Status: Acute Plan 55-make admitted through the ICU on 08/18, His past medical history includes depression, GERD, dysphagia, BPH, bipolar disorder, anemia, alcohol and opiate abuse, anxiety, GI bleed, achalasia status post heller myotomy and balloon dilations. He was found unresponsive at home with pinpoint pupils and apnea, requiring intubation by EMS. He was also diagnosed with rhabdomyolysis, acute kidney injury (NAOMI), and shock, for which he was started on levophed. Additionally, he developed aspiration pneumonia and was found to have gram-negative fitz sepsis, gastrointestinal bleed, and acute blood anemia. The patient remained intubated from admikssion until September 05 and was transferred to the medical floor on September 06. He initiated hemodialysis due to renal failure, likely acute tubular necrosis (ATN) associated with uremia, and continues on dialysis. Neuro- Metabolic encephalopathy d/t primarly anoxic encephalopathy as evident on MRI, and confirmed by Neurologist. Prognosis is guarded EEG done 09/09 result not available. Patient has not made any meaningful recovery since extubation and likely has permaent brain damage Cardiac--no acute issues, intermittent tachycardia likely relate to axiety, fever Respiratory Acute hypoxic resp failure d/t Overdose and aspiration PNA, required intuabation initially in the ICU and was succesfully extubated later. The acute episode of respiratory distress and hypoxia this morning likely related to aspiration penumonia. Unfortunately, he is again intubated and may need a trach. He is already on broad spec Abx. GI--no issues, tube feed stopped out of concern for aspiration FEN--NPO. Tube feed when deemed safe. Surgery was consulted to PEG ID--Treated for pneumonia, and propinibacterim acne bacteria. ID recommends holding Abx. Will get Echo, check HIV, Hep. Was having new fevers and so Vanco was added and addtional blood cultures orders but so far negaive. Increasing WBC likely lukomoid reaction. Would continue Cefepime at this time to cover aspiration PNA Renal had ATN related to rehabdo and shock, he has been dialysed on PRN basis, BUN/Creating rising again.. Nephrology to assess for need for dialysis Metabolic acidosis--likely related to worsening renal failure Hypercalcemia--unclear cause will discuss with Nephro, improved presently 10, Endocrine--no acute issues Need for inpatient:acute hypoxic respiratory that now need mechanical ventilation. heparin for DVT prophylaxis Code status discussed again with [facility] and her daughter Laurie Taveras on a conference call and they want everything done Prognosis is guarded/poor Quality Stroke Does the patient have a stroke diagnosis?: No VTE Prior VTE?: No VTE Risk Level:: Medical - low VTE Device Contraindication: N/A - Device Ordered VTE Drug Contraindication: N/A - Med Ordered
--- NOTE | 2023-09-11 12:46 | MHC.SLORD ---
Speech Language Pathology Order Status: Per RN, pt minimally responsive and not appropriate for YARN EXAMINER SKEINS visit; bit down on suction and did not allow for oral care. RN reports they will try oral care again later. YARN EXAMINER SKEINS to continue to follow.
[2023-09-11 12:47] LABS: Glucose, Whole Blood 148 mg/dL (60-115)
[2023-09-11 13:13] LABS: Hematocrit 28.4 % (42.0-52.0); Hemoglobin 9.5 g/dl (14.0-18.0); Mean Corpuscular HGB Conc 33.5 g/dl (31.0-36.0); Mean Corpuscular Hemoglobin 30.4 pg (27.0-33.0); Mean Platelet Volume 10.9 fL (9.4-12.4); NRBC Pct Auto 0.4 /100WBC (0.0-0.2); Platelet Count 427 X10*3/uL (160-400); Red Blood Count 3.12 X10*6/uL (4.60-5.80); Red Cell Distribution Width 20.8 % (11.0-16.0)
[2023-09-11 13:25] LABS: White Blood Count 32.1 X10*3/uL (4.8-10.8)
[2023-09-11 13:30] LABS: ABG HCO3 12 mmol/L (22-26); ABG pCO2 25 mmHg (32-45); ABG pH 7.29 (7.35-7.45); ABG pO2 481 mmHg (83-108)
[2023-09-11] MEDS: Etomidate 20 MG/10 ML VIAL IVPUSH (13:38)
[2023-09-11 13:39] LABS: Anion Gap 29 (12-20); Calcium 10.7 mg/dL (8.4-10.2); Carbon Dioxide 16 mmol/L (22-29); Chloride 98 mmol/L (96-108); Creatinine Clr Calc Pharmacy 13.1; Estimated Glomerular Filt Rate 10; Glucose Random 155 mg/dL (60-115); Potassium 5.3 mmol/L (3.3-5.1); Sodium 138 mmol/L (135-145)
[2023-09-11] MEDS: Rocuronium Bromide 50 MG/5 ML VIAL 100 MG IV (13:39)
[2023-09-11] MEDS: propofoL 1,000 MG/100 ML VIAL 12.53 MG IVCONT ×2 (13:44→19:10)
[2023-09-11] MEDS: Lactated Ringers 1,000 ML 500 ML IV (13:45)
[2023-09-11 13:47] LABS: Blood Urea Nitrogen 141 mg/dL (9-16)
--- NOTE | 2023-09-11 14:10 | PC.NURSE ---
Upon walking into room to draw labs off line, patient noted to have increased secretions and gargling. RR 30s and labored breathing. Multiple attempts at deep suctioning with minimal output. on room air 02 sat dropped to 62%. non rebreather applied and rapid response called. MD, and respiratory at bedside. BP: 121/62, pulse 105. Sinus tach on tele. STAT CBC, ABGS, and BNP pending. MD order to transfer to icu.
--- NOTE | 2023-09-11 14:43 | MHC.CM.PN ---
Pt experiencing respiratory distress and transferred to ICU where he was subsequently intubated. Pt has a HCP (marlen Esqueda) and a dtr who are aware of his status and transfer back to ICU. Finalization of d/c plans will be ongoing as pt has not been able to demonstrate medical stability long enough to evaluate his ability to care for self. CM to follow
--- NOTE | 2023-09-11 15:44 | PC.NURSE ---
Received transfer from [facility] emergent to ICU room 254 @ approx 1340. Intubated in ICU, sedated with propofol drip. OG tube inserted. CXR done & viewed by provider. Patient tolerating vent settings - (see vent assessment) Full care given, linen change, reposition. Full bath, patient on ICU airloss bed. Repositioned to left with wedges at approx 1430. Maceration noted on bilat gluteal folds & coccyx. Male external catheter placed. pink rash to upper legs, trunk, and arms noted - fine pink - Dr Coyle aware. Report given to Raleigh WAGNER.
[2023-09-11 16:27] LABS: Glucose, Whole Blood 126 mg/dL (60-115)
--- NOTE | 2023-09-11 18:19 | P.PNNP_ITS ---
Subjective Subjective Date of Service: 09/11/23 Interval history: Events noted; Very ill. All recent data reviewed; D/W hospitalist this morning Physical Exam 2 Vital Signs: Vital Signs: Last Vital Signs Temp 98.6 F 09/11/23 17:00 Pulse 103 H 09/11/23 17:00 Resp 22 H 09/11/23 17:00 BP 117/67 09/11/23 17:00 Pulse Ox 100 09/11/23 17:00 O2 Del Method Mechanical Ventil ation 09/11/23 17:00 O2 Flow Rate 2 09/06/23 15:00 FiO2 40 09/11/23 17:00 BMI result Body Mass Index 23.3 Const: Other: Very ill Neck: Neck: Yes supple Resp: Auscultation: rhonchi and diminished lung sounds Cardio: Rate: regular rate GI: Palpation (GI): Soft to palpation Neuro: Other: Flat affect Objective Data Labs 09/11/23 13:05 09/11/23 13:05 Labs: Laboratory Results - last 24 hr 09/10/23 09/11/23 09/11/23 21:10 02:09 06:25 WBC RBC Hgb Hct MCV MCH MCHC RDW Plt Count MPV Absolute Nucleated RBC Nucleated RBC % (auto) O2 Saturation ABG pH at Pt Temp ABG pCO2 at Pt Temp ABG pO2 at Pt Temp ABG HCO3 ABG Base Excess (Actual) Sodium Potassium Chloride Carbon Dioxide Anion Gap BUN Creatinine Estim Creat Clear Calc Estimated GFR POC Glucose 129 H 130 H 143 H Random Glucose Calcium 09/11/23 09/11/23 09/11/23 09:04 12:39 13:05 WBC 32.1 H* RBC 3.12 L Hgb 9.5 L Hct 28.4 L MCV 91.0 MCH 30.4 MCHC 33.5 RDW 20.8 H Plt Count 427 H MPV 10.9 Absolute Nucleated RBC 0.140 H Nucleated RBC % (auto) 0.4 H O2 Saturation ABG pH at Pt Temp ABG pCO2 at Pt Temp ABG pO2 at Pt Temp ABG HCO3 ABG Base Excess (Actual) Sodium 138 Potassium 5.3 H Chloride 98 Carbon Dioxide 16 L Anion Gap 29 H BUN 141 H Creatinine 6.15 H* Estim Creat Clear Calc 13.1 Estimated GFR 10 POC Glucose 153 H 148 H Random Glucose 155 H Calcium 10.7 H D 09/11/23 09/11/23 13:21 16:22 WBC RBC Hgb Hct MCV MCH MCHC RDW Plt Count MPV Absolute Nucleated RBC Nucleated RBC % (auto) O2 Saturation 100.0 ABG pH at Pt Temp 7.29 L ABG pCO2 at Pt Temp 25 L ABG pO2 at Pt Temp 481 H ABG HCO3 12 L ABG Base Excess (Actual) -12.0 Sodium Potassium Chloride Carbon Dioxide Anion Gap BUN Creatinine Estim Creat Clear Calc Estimated GFR POC Glucose 126 H Random Glucose Calcium Microbiology Microbiology Results: Microbiology 09/08/23 03:22 Blood - Venous Blood Culture - Preliminary No growth after 48 hours. 09/08/23 03:22 Blood - Venous Blood Culture - Preliminary No growth after 48 hours. 08/20/23 16:53 Lung - Suctioned Gram Stain - Final 08/20/23 16:53 Lung - Suctioned Sputum Culture - Final Stefanie albicans Stefanie dubliniensis 08/19/23 02:59 Blood - Venous Blood Culture - Final Propionibacterium acnes 08/19/23 02:59 Blood - Venous Blood Culture - Final Propionibacterium acnes 08/19/23 Unknown Urine Catheterized - Bess Catheter Urine Culture - Final No growth. 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 No renal recovery yet. Next HD Sat/Sun/Mon; Volume optimization on HD In view of uremia and severe hypercalcemia we will continue with hemodialysis until renal recovery. Goals of care need to be established if he is not improving Shall monitor for renal recovery; C/W rest of current management for now Progress Note: Quality Stroke Does the patient have a stroke diagnosis?: No
--- NOTE | 2023-09-11 19:34 | W.PM.CCCN ---
History of Present Illness Data of Consult Service Date: 09/11/23 Primary Care Provider: Patrick Ly MD HPI Reason for consult: altered sensorium Mr. Jerson Taveras is a 53-year-old male with PMH of depression, GERD, dysphagia, BPH, bipolar, anemia, alcohol and opiate abuse, anxiety, GI bleed, achalasia s/p heller myotomy and balloon dilations was found unresponsive at home he was intubated and placed on ventilator support,also in shock needing Levophed support, acute kidney injury, rhabdomyolysis and a right-sided aspiration pneumonia for which he was admitted to MICU, eventually extubated and transferred to the floor. He was dialyzed for the concerns of uremic encephalopathy with some improvement in his mental status. MRI of the brain showed anoxic brain injury, his mentation in the fluid continued to be very poor, Neurology was consulted who opined he had a poor prognosis. In the floor he continued to be having poor mentation, slightly alternating every day. This morning he was found unresponsive with no respiratory efforts so he was intubated and brought back to the ICU Review of Systems Review of Systems: Unable to obtain as patient is unresponsive PMFSH Past Medical History Medical History Fever, unknown origin Low TSH level Alcohol dependence Opioid abuse Chest pain Weight loss Dysphagia Major depressive disorder, 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 GERD (gastroesophageal reflux disease) Anxiety Family History Family History Father HTN (hypertension) Diabetes Mother HTN (hypertension) Stroke Alzheimer disease Heart disease Family history: reviewed and not pertinent Surgical History Surgical History History of colonoscopy History of cystoscopy H/O umbilical hernia repair Social History Social History Household Members: Unknown / Unable to assess Housing: Unknown / Unable to assess Do you presently have visiting nurse or other home services: Yes Alcohol intake: former Comment: bilateral wrist restraints for airway safety Patient Tobacco Use Status: Tobacco use Unknown Tobacco use type: Cigarette Cigarette Packs Per Day: 12 Cigarettes Per Day: 240.0 Years Smoked: 12 e-Cigarette/Vaping Use: Never Used Second Hand Smoke Exposure: Yes Substance Use Type: Unknown Advance Directives Date on File: 02/14/20 service: No Current occupational status: unemployed and disabled Sexual orientation: Straight/Heterosexual Meds Allergies Allergy/AdvReac Type Severity Reaction Status Date / Time trazodone [TRAZODONE] Allergy Severe FACIAL Verified 08/19/23 02:58 SWELLING, swelling cat dander [CATS] Allergy Intermediate FACIAL Verified 08/19/23 02:58 ITCHING doxepin [DOXEPIN] Allergy Intermediate WEIGHT Verified 08/19/23 02:58 GAIN/LEG SWELLING Iodinated Contrast Media Allergy Intermediate ITCHING Verified 08/19/23 02:58 [IV DYE, IODINE CONTAINING CONTRAST ] nitroglycerin [NITROGLYCERIN] Allergy Unknown UNKNOWN Verified 08/19/23 02:58 tramadol [TRAMADOL] Allergy Unknown UNKNOWN, Verified 08/19/23 02:58 dry mouth ibuprofen [From MOTRIN] AdvReac Intermediate GI UPSET Verified 08/19/23 02:58 quetiapine [From SEROQUEL] AdvReac Intermediate FACIAL Verified 08/19/23 02:58 SWELLING aspirin [ASPIRIN] AdvReac Mild Stomach Verified 08/19/23 02:58 Upset Ibuprofen Allergy Unknown stomach Uncoded 08/19/23 02:58 ache IV contrast Allergy Unknown Unknown Uncoded 08/03/23 20:27 Motrin Allergy Unknown stomach Uncoded 08/03/23 20:27 pain Active Medications: Current Medications Acetaminophen (Acetaminophen Supp 650 Mg Supp.Rect) 650 mg [place] Q4H PRN PRN Reason: Fever >100.4 Last Admin: 09/11/23 04:20 Dose: 650 mg Amlodipine Besylate (Amlodipine Besylate 10 Mg Tablet) 10 mg PO DAILY JAMES; Protocol Last Admin: 09/11/23 08:55 Dose: 10 mg Glucose (Glucose Gel 15 Gm Gel..Gram.) 15 gm PO Q15M PRN; Protocol PRN Reason: per Hypoglycemia Standing Ord. Heparin Sodium (Porcine) (Heparin Sodium,Porcine 5,000 Unit/Ml Vial) 5,000 unit SUBCUT Q8H [facility] Last Admin: 09/11/23 18:20 Dose: 5,000 unit Heparin Sodium (Porcine) (Heparin Sodium,Porcine 5,000 Unit/Ml Vial) 5,000 unit INTRACATH ONCE ONE Stop: 09/12/23 06:01 Heparin Sodium (Porcine) (Heparin Sodium,Porcine 5,000 Unit/Ml Vial) 5,000 unit INTRACATH ONCE ONE Stop: 09/13/23 06:01 Heparin Sodium (Porcine) (Heparin Sodium,Porcine 5,000 Unit/Ml Vial) 5,000 unit INTRACATH ONCE ONE Stop: 09/14/23 06:01 Cefepime HCl 2 gm/ Sodium (Chloride) 50 mls @ 100 mls/hr IV Q24H [facility] Last Infusion: 09/11/23 04:38 Dose: Infused Dextrose (D10) 250 mls @ 750 mls/hr IV Q15M PRN; Protocol PRN Reason: per Hypoglycemia Standing Ord. Propofol (Diprivan) 1,000 mg in 100 mls @ 0 mls/hr IVCONT .Q0M [facility]; Protocol Last Admin: 09/11/23 19:10 Dose: 30 mcg/kg/min, 12.53 mls/hr Nystatin (Nystatin Cream 15 Gm Tube) 1 appl TOPICAL BID [facility]; Protocol Last Admin: 09/11/23 08:59 Dose: 1 appl Pantoprazole Sodium (Pantoprazole Sodium 40 Mg/10 Ml Vial) 40 mg IVPUSH DAILY@0630 [facility] Last Admin: 09/11/23 07:46 Dose: 40 mg Sodium Chloride (0.9 % Sodium Chloride Flush 3 Ml Syringe) 3 ml IVFLUSH QSHIFT [facility] Last Admin: 09/11/23 16:29 Dose: 3 ml Home Medications ?Medication ?Instructions ?Recorded ?Confirmed ?Last Taken ?Type albuterol sulfate 90 mcg/actuation 2 puff inhalation Q4-6H PRN 08/19/23 08/19/23 Unknown History aerosol inhaler (Ventolin HFA) Shortness Of Breath Or Wheezing capsaicin 0.025 % topical cream 1 appl topical TID 08/19/23 08/19/23 Unknown History cetirizine 10 mg tablet 10 mg PO DAILY 08/19/23 08/19/23 Unknown History cholecalciferol (vitamin D3) 25 25 mcg PO DAILY 08/19/23 08/19/23 Unknown History mcg (1,000 unit) capsule diphenhydramine HCl 25 mg tablet 25 mg PO Q6H PRN Itching 08/19/23 08/19/23 Unknown History (Sindy-Dryl) fluticasone propionate 50 1 - 2 spray intranasal DAILY 08/19/23 08/19/23 Unknown History mcg/actuation nasal spray,suspension loperamide 2 mg tablet 2 mg PO Q6H PRN Loose Stool 08/19/23 08/19/23 Unknown History (Anti-Diarrheal (loperamide)) metformin 500 mg tablet,extended 500 mg PO QPM 08/19/23 08/19/23 Unknown History release 24 hr mirtazapine 15 mg tablet 15 mg PO BEDTIME 08/19/23 08/19/23 Unknown History ondansetron 4 mg disintegrating 4 mg PO Q8H PRN nausea/vomiting 08/19/23 08/19/23 Unknown History tablet polyethylene glycol 3350 17 17 g PO BID PRN constipation 08/19/23 08/19/23 Unknown History gram/dose oral powder selenium sulfide 2.5 % lotion 1 appl topical 3XW PRN DANDRUFF 08/19/23 08/19/23 Unknown History sennosides 8.6 mg tablet (senna) 8.6 mg PO BEDTIME PRN Constipation 08/19/23 08/19/23 Unknown History Physical Exam Vital Signs: Vital Signs: Last Vital Signs Temp 98.2 F 09/11/23 19:00 Pulse 105 H 09/11/23 19:00 Resp 26 H 09/11/23 19:00 BP 111/67 09/11/23 19:00 Pulse Ox 99 09/11/23 19:00 O2 Del Method Mechanical Ventil ation 09/11/23 19:00 O2 Flow Rate 2 09/06/23 15:00 FiO2 40 09/11/23 19:00 BMI result Body Mass Index 23.3 General: Patient acute distress, ill appearing and tired appearing Nutritional Appearance: Poorly nourished and under weight Eyes: appearance normal, both eyes and all related structures; Alignment and Position: alignment normal and position normal Neck: No lymphadenopathy, no thyromegaly Resp: bilateral air entry equal, occasional added sounds present Cardio: Regular rate, regular rhythm; Heart sounds: S1 normal heart sound present and S2 normal heart sound present GI: soft, nontender, no guarding, no hepatosplenomegaly : bladder normal to inspection, bladder normal to palpation, no renal angle tenderness Skin: no rashes or lesions noted and elasticity normal Neuro: Unresponsive, not responding to any painful stimulus Results Labs 09/11/23 13:05 09/11/23 13:05 Labs: Short CBC 09/11/23 Range/Units 13:05 WBC 32.1 H* (4.8-10.8) X10*3/uL Hgb 9.5 L (14.0-18.0) g/dl Hct 28.4 L (42.0-52.0) % Plt Count 427 H (160-400) X10*3/uL BMP 09/11/23 13:05 Sodium 138 Potassium 5.3 H Chloride 98 Carbon Dioxide 16 L BUN 141 H Creatinine 6.15 H* Calcium 10.7 H D Microbiology Microbiology Results: Microbiology 09/08/23 03:22 Blood - Venous Blood Culture - Preliminary No growth after 48 hours. 09/08/23 03:22 Blood - Venous Blood Culture - Preliminary No growth after 48 hours. 08/20/23 16:53 Lung - Suctioned Gram Stain - Final 08/20/23 16:53 Lung - Suctioned Sputum Culture - Final Stefanie albicans Stefanie dubliniensis 08/19/23 02:59 Blood - Venous Blood Culture - Final Propionibacterium acnes 08/19/23 02:59 Blood - Venous Blood Culture - Final Propionibacterium acnes 08/19/23 Unknown Urine Catheterized - Bess Catheter Urine Culture - Final No growth. Assessment and Plan (1) Metabolic encephalopathy: Status: Acute (2) Polysubstance abuse: Status: Acute (3) Aspiration pneumonia: Status: Acute (4) Acute hypoxemic respiratory failure: Status: Acute (5) NAOMI (acute kidney injury): Status: Acute Plan Mr. Jerson Taveras is a 53-year-old male with PMH of depression, GERD, dysphagia, BPH, bipolar, anemia, alcohol and opiate abuse, anxiety, GI bleed, achalasia s/p heller myotomy and balloon dilations was found unresponsive at home so EMS was called. Upon arrival of the EMS on Thursday was found to have pinpoint pupils with apneic breathing so was brought into the was intubated and placed on ventilator support, he is also found to be in shock needing Levophed support, acute kidney injury, rhabdomyolysis and a right-sided aspiration pneumonia for which MICU was consulted for admission. His NAOMI is worsening, rhabdomyolysis is improving. He received a large amount of fluids for the management of rhabdomyolysis and is significantly net fluid balance positive. Neuro: Acute encephalopathy secondary to anoxic brain injury after being found down. MRI of the brain suggestive of anoxic brain injury CT head did not show any acute intracranial pathology UDS positive for cocaine, opiates and fentanyl upon admission On propofol for sedation We will consult surgery for tracheostomy as patient will continued to have very poor mental status and remains a high-risk for aspiration. His neurological recovery might be poor and my take too long time Cardiac: Blood pressure stable Respiratory: Acute hypoxemic respiratory failure due to aspiration pneumonia right more than left Currently on ventilator support increase in oxygen requirement overnight On PRVC mode FiO2 40%, peep 5, tidal volume 400, rate 20 Peak pressures and plateau pressures are under the curve Ventilator management bundle with head end elevation, aspiration precaution, chlorhexidine mouthwash, daily awakening trials, daily spontaneous breathing trials GI: Continue tube feeds Renal: Acute kidney injury possibly secondary to rhabdomyolysis, diuresing well but very poor clearance started on renal replacement therapy Might need further sessions of hemodialysis has the creatinine continues to raise We will closely monitor I's and O's Avoid nephrotoxic medications Heme: Chronic anemia, closely monitor H&H, transfuse for hemoglobin less than 7 grams/deciliter Infectious disease: Aspiration pneumonia Treated with Zosyn earlier, MRSA nares negative Lungs clear on x-ray today Endocrine: Blood sugars under control Sliding scale insulin as needed Musculoskeletal: Decubitus ulcer prevention protocol Lines: Right IJ hemodialysis catheter Bess catheter Prophylaxis: Heparin, pantoprazole Critical care time spent is about 45 minutes on evaluation of the patient, stabilizing the patient, admission of the patient to the medical ICU, ventilator management, sedation management, close neurological status monitoring at this time is excluding procedural time
[2023-09-11 23:26] LABS: Hematocrit 29.4 % (42.0-52.0); Hemoglobin 9.7 g/dl (14.0-18.0); Mean Corpuscular Hemoglobin 29.8 pg (27.0-33.0); Mean Corpuscular Volume 90.2 fL (80.0-98.0); Mean Platelet Volume 10.8 fL (9.4-12.4); NRBC Pct Auto 0.6 /100WBC (0.0-0.2); Platelet Count 393 X10*3/uL (160-400); Red Blood Count 3.26 X10*6/uL (4.60-5.80); Red Cell Distribution Width 21.2 % (11.0-16.0)
[2023-09-11 23:34] LABS: White Blood Count 32.3 X10*3/uL (4.8-10.8)
[2023-09-11 23:39] LABS: Alanine Aminotransferase 25 U/L (0-40); Albumin Level 4.1 g/dL (3.5-5.0); Alkaline Phosphatase 92 U/L (39-117); Anion Gap 33 (12-20); Aspartate Amino Transferase 44 U/L (5-37); Bilirubin Total 0.5 mg/dL (0.0-1.0); Calcium 9.9 mg/dL (8.4-10.2); Carbon Dioxide 10 mmol/L (22-29); Chloride 98 mmol/L (96-108); Creatinine Clr Calc Pharmacy 14.1; Estimated Glomerular Filt Rate 10; Glucose Random 155 mg/dL (60-115); Potassium 4.9 mmol/L (3.3-5.1); Sodium 136 mmol/L (135-145); Total Protein 9.4 g/dL (6.5-8.0)
[2023-09-11 23:46] LABS: Band Neutrophils Percent 5 % (3-5); Eosinophils Percent Manual 3 % (0-4); Metamyelocytes Absolute 0.6 X10*3/uL; Metamyelocytes Percent 2 %; Monocytes Absolute Manual 1.3 X10*3/uL (0.1-1.2); Monocytes Percent Manual 4 % (2-11); Myelocytes Absolute 0.6 X10*/uL; Myelocytes Percent 2 %
[2023-09-11 23:47] LABS: Lymphocytes Absolute Manual 1.3 X10*3/uL (1.2-4.9); Lymphocytes Percent Manual 4 % (20-40); Neutrophils Absolute Manual 27.5 X10*3/uL (2.0-8.3); Neutrophils Percent Manual 80 % (45-73); RBC Morphology NOTED
[2023-09-11 23:51] LABS: Platelet Estimate NORMAL (NORMAL); Polychromasia 1+ (0-2) /OIF; Tear Drop Cells 1+ (0-2) /OIF; Toxic Vacuolation PRESENT
[2023-09-11 23:53] LABS: Blood Urea Nitrogen 143 mg/dL (9-16)
[2023-09-11 23:54] LABS: Microcytosis 1+ (5-14) /OIF
[2023-09-11 23:56] LABS: Platelet Morphology Comment NORM; Schistocytes 1+ (0-2) /OIF; Spherocytes 1+ (0-2) /OIF
[2023-09-11] MEDS: Sodium Bicarbonate 8.4% 150 MEQ in Dextrose 5 % 850 ML 100 MEQ IV (23:56)
[2023-09-12] VITALS (31 sets, daily range): BP systolic 94–133; BP diastolic 56–79; PULSE 81–110; RESP 16–26; TEMP 35–37.9; O2SAT 98–100; BMI 21.8
[2023-09-12 00:01] LABS: Glucose, Whole Blood 163 mg/dL (60-115)
[2023-09-12] MEDS: Sodium Bicarbonate 8.4% 50 MEQ/50 ML SYRINGE IVPUSH (01:22)
[2023-09-12] MEDS: propofoL 1,000 MG/100 ML VIAL 12.53 MG IVCONT (02:27)
[2023-09-12] MEDS: cefEPime HCl 2 GM in 0.9 % Sodium Chloride 50 ML IV (02:30)
[2023-09-12] MEDS: Heparin Sodium,Porcine 5,000 UNIT/ML VIAL 5000 UNIT SUBCUT ×3 (02:31→18:43)
[2023-09-12 04:51] LABS: VBG Base Excess -4.3 mmol/L; VBG HCO3 17 mmol/L (22-26); VBG pCO2 23 mmHg; VBG pH 7.48 (7.32-7.43); VBG pO2 66 mmHg
[2023-09-12 04:53] LABS: Venous Blood Gas Refer to POC result
[2023-09-12 05:05] LABS: Hematocrit 27.7 % (42.0-52.0); Hemoglobin 9.5 g/dl (14.0-18.0); Mean Corpuscular HGB Conc 34.3 g/dl (31.0-36.0); Mean Corpuscular Hemoglobin 30.6 pg (27.0-33.0); Mean Corpuscular Volume 89.4 fL (80.0-98.0); Mean Platelet Volume 11.3 fL (9.4-12.4); NRBC Pct Auto 0.6 /100WBC (0.0-0.2); Platelet Count 365 X10*3/uL (160-400); Red Cell Distribution Width 21.1 % (11.0-16.0)
[2023-09-12 05:27] LABS: Band Neutrophils Percent 5 % (3-5); Eosinophils Absolute Manual 2.3 X10*3/uL (0.0-0.4); Eosinophils Percent Manual 8 % (0-4); Lymphocytes Absolute Manual 1.2 X10*3/uL (1.2-4.9); Lymphocytes Percent Manual 4 % (20-40); Metamyelocytes Absolute 0.9 X10*3/uL; Metamyelocytes Percent 3 %; Microcytosis 1+ (5-14) /OIF; Monocytes Absolute Manual 0.9 X10*3/uL (0.1-1.2); Monocytes Percent Manual 3 % (2-11); Neutrophils Absolute Manual 23.8 X10*3/uL (2.0-8.3); Neutrophils Percent Manual 77 % (45-73); RBC Morphology NOTED
[2023-09-12 05:28] LABS: Polychromasia 1+ (0-2) /OIF; Schistocytes 1+ (0-2) /OIF; Tear Drop Cells 1+ (0-2) /OIF; Toxic Vacuolation PRESENT
[2023-09-12 05:29] LABS: Platelet Estimate NORMAL (NORMAL); Platelet Morphology Comment NORMAL
[2023-09-12] MEDS: Pantoprazole Sodium 40 MG/10 ML VIAL IVPUSH (05:29)
[2023-09-12 05:31] LABS: Spherocytes 1+ (0-2) /OIF
[2023-09-12 05:39] LABS: Alanine Aminotransferase 24 U/L (0-40); Albumin Level 3.9 g/dL (3.5-5.0); Alkaline Phosphatase 91 U/L (39-117); Anion Gap 32 (12-20); Aspartate Amino Transferase 41 U/L (5-37); Bilirubin Total 0.4 mg/dL (0.0-1.0); Blood Urea Nitrogen 147 mg/dL (9-16); Calcium 9.9 mg/dL (8.4-10.2); Carbon Dioxide 15 mmol/L (22-29); Chloride 96 mmol/L (96-108); Creatinine Clr Calc Pharmacy 12.3; Estimated Glomerular Filt Rate 9; Glucose Random 162 mg/dL (60-115); Potassium 4.1 mmol/L (3.3-5.1); Sodium 139 mmol/L (135-145); Total Protein 8.8 g/dL (6.5-8.0)
[2023-09-12] MEDS: Alteplase Cath Clear 2 MG/2 ML VIAL INTRACATH ×2 (07:28→08:29)
[2023-09-12 08:35] LABS: Glucose, Whole Blood 173 mg/dL (60-115)
[2023-09-12] MEDS: propofoL 1,000 MG/100 ML VIAL 8.35 MG IVCONT ×2 (09:11→16:40)
[2023-09-12] MEDS: 0.9 % Sodium Chloride Flush 3 ML SYRINGE IVFLUSH ×2 (09:49→16:41)
[2023-09-12] MEDS: Sodium Bicarbonate 8.4% 150 MEQ in Dextrose 5 % 850 ML 100 MEQ IV ×2 (09:49→19:52)
--- NOTE | 2023-09-12 11:29 | PM.CCPN ---
Subjective Subjective Date of Service: 09/12/23 Critical Care Time (minutes): 40 Physical Exam Vital Signs: Vital Signs: Last Vital Signs Temp 98.8 F 09/12/23 11:00 Pulse 95 09/12/23 11:00 Resp 20 09/12/23 11:00 BP 94/63 09/12/23 11:00 Pulse Ox 100 09/12/23 11:00 O2 Del Method Mechanical Ventil ation 09/12/23 11:00 O2 Flow Rate 40 09/11/23 20:00 FiO2 30 09/12/23 11:00 BMI result Body Mass Index 21.8 General: Patient in acute distress, ill appearing and tired appearing Nutritional Appearance: well nourished and under weight Eyes: appearance normal, both eyes and all related structures; Alignment and Position: alignment normal and position normal Neck: No lymphadenopathy, no thyromegaly Resp: bilateral air entry equal, occasional added sounds present bilaterally right more than left Cardio: Regular rate, regular rhythm; Heart sounds: S1 normal heart sound present and S2 normal heart sound present GI: soft, nontender, no guarding, no hepatosplenomegaly : bladder normal to inspection, bladder normal to palpation, no renal angle tenderness Skin: no rashes or lesions noted and elasticity normal Neuro: Very poor mentation, no focal deficit Objective Data Labs 09/12/23 04:39 09/12/23 04:39 Labs: Laboratory Results - last 24 hr 09/11/23 09/11/23 09/11/23 12:39 13:05 13:21 WBC 32.1 H* RBC 3.12 L Hgb 9.5 L Hct 28.4 L MCV 91.0 MCH 30.4 MCHC 33.5 RDW 20.8 H Plt Count 427 H MPV 10.9 Immature Gran % (Auto) Neut % (Auto) Lymph % (Auto) [place] % (Auto) Eos % (Auto) Baso % (Auto) Lymph # (Auto) [place] # (Auto) Eos # (Auto) Baso # (Auto) Abs Immat Gran (auto) Absolute Neuts (auto) Absolute Nucleated RBC 0.140 H Nucleated RBC % (auto) 0.4 H Neutrophils % (Manual) Band Neutrophils % Lymphocytes % (Manual) Monocytes % (Manual) Eosinophils % (Manual) Metamyelocytes % Myelocytes % Abs Neuts (Manual) Lymphocytes # (Manual) Monocytes # (Manual) Eosinophils # (Manual) Metamyelocytes # Myelocytes # Toxic Vacuolation Platelet Estimate Plt Morphology Comment RBC Morphology Polychromasia Microcytosis Spherocytes Tear Drop Cells Schistocytes O2 Saturation 100.0 ABG pH at Pt Temp 7.29 L ABG pCO2 at Pt Temp 25 L ABG pO2 at Pt Temp 481 H ABG HCO3 12 L ABG Base Excess (Actual) -12.0 VBG pH VBG pCO2 VBG pO2 VBG HCO3 VBG O2 Saturation VBG Base Excess Sodium 138 Potassium 5.3 H Chloride 98 Carbon Dioxide 16 L Anion Gap 29 H BUN 141 H Creatinine 6.15 H* Estim Creat Clear Calc 13.1 Estimated GFR 10 POC Glucose 148 H Random Glucose 155 H Calcium 10.7 H D Total Bilirubin AST ALT Alkaline Phosphatase Total Protein Albumin 09/11/23 09/11/23 09/11/23 16:22 23:09 23:58 WBC 32.3 H* RBC 3.26 L Hgb 9.7 L Hct 29.4 L MCV 90.2 MCH 29.8 MCHC 33.0 RDW 21.2 H Plt Count 393 MPV 10.8 Immature Gran % (Auto) Cancelled Neut % (Auto) Cancelled Lymph % (Auto) Cancelled [place] % (Auto) Cancelled Eos % (Auto) Cancelled Baso % (Auto) Cancelled Lymph # (Auto) Cancelled [place] # (Auto) Cancelled Eos # (Auto) Cancelled Baso # (Auto) Cancelled Abs Immat Gran (auto) Cancelled Absolute Neuts (auto) Cancelled Absolute Nucleated RBC 0.190 H Nucleated RBC % (auto) 0.6 H Neutrophils % (Manual) 80 H Band Neutrophils % 5 Lymphocytes % (Manual) 4 L Monocytes % (Manual) 4 Eosinophils % (Manual) 3 Metamyelocytes % 2 Myelocytes % 2 Abs Neuts (Manual) 27.5 H Lymphocytes # (Manual) 1.3 Monocytes # (Manual) 1.3 H Eosinophils # (Manual) 1.0 H Metamyelocytes # 0.6 Myelocytes # 0.6 Toxic Vacuolation PRESENT Platelet Estimate NORMAL Plt Morphology Comment NORM RBC Morphology NOTED Polychromasia 1+ (0-2) Microcytosis 1+ (5-14) Spherocytes 1+ (0-2) Tear Drop Cells 1+ (0-2) Schistocytes 1+ (0-2) O2 Saturation ABG pH at Pt Temp ABG pCO2 at Pt Temp ABG pO2 at Pt Temp ABG HCO3 ABG Base Excess (Actual) VBG pH VBG pCO2 VBG pO2 VBG HCO3 VBG O2 Saturation VBG Base Excess Sodium 136 Potassium 4.9 Chloride 98 Carbon Dioxide 10 L* D Anion Gap 33 H BUN 143 H Creatinine 5.70 H* Estim Creat Clear Calc 14.1 Estimated GFR 10 POC Glucose 126 H 163 H Random Glucose 155 H Calcium 9.9 D Total Bilirubin 0.5 AST 44 H ALT 25 Alkaline Phosphatase 92 Total Protein 9.4 H Albumin 4.1 09/12/23 09/12/23 09/12/23 04:39 04:42 08:32 WBC 29.0 H RBC 3.10 L Hgb 9.5 L Hct 27.7 L MCV 89.4 MCH 30.6 MCHC 34.3 RDW 21.1 H Plt Count 365 MPV 11.3 Immature Gran % (Auto) Cancelled Neut % (Auto) Cancelled Lymph % (Auto) Cancelled [place] % (Auto) Cancelled Eos % (Auto) Cancelled Baso % (Auto) Cancelled Lymph # (Auto) Cancelled [place] # (Auto) Cancelled Eos # (Auto) Cancelled Baso # (Auto) Cancelled Abs Immat Gran (auto) Cancelled Absolute Neuts (auto) Cancelled Absolute Nucleated RBC 0.180 H Nucleated RBC % (auto) 0.6 H Neutrophils % (Manual) 77 H Band Neutrophils % 5 Lymphocytes % (Manual) 4 L Monocytes % (Manual) 3 Eosinophils % (Manual) 8 H Metamyelocytes % 3 Myelocytes % Abs Neuts (Manual) 23.8 H Lymphocytes # (Manual) 1.2 Monocytes # (Manual) 0.9 Eosinophils # (Manual) 2.3 H Metamyelocytes # 0.9 Myelocytes # Toxic Vacuolation PRESENT Platelet Estimate NORMAL Plt Morphology Comment NORMAL RBC Morphology NOTED Polychromasia 1+ (0-2) Microcytosis 1+ (5-14) Spherocytes 1+ (0-2) Tear Drop Cells 1+ (0-2) Schistocytes 1+ (0-2) O2 Saturation ABG pH at Pt Temp ABG pCO2 at Pt Temp ABG pO2 at Pt Temp ABG HCO3 ABG Base Excess (Actual) VBG pH 7.48 H VBG pCO2 23 VBG pO2 66 VBG HCO3 17 L VBG O2 Saturation 90.0 VBG Base Excess -4.3 Sodium 139 Potassium 4.1 Chloride 96 Carbon Dioxide 15 L Anion Gap 32 H BUN 147 H Creatinine 6.20 H* Estim Creat Clear Calc 12.3 Estimated GFR 9 POC Glucose 173 H Random Glucose 162 H Calcium 9.9 Total Bilirubin 0.4 AST 41 H ALT 24 Alkaline Phosphatase 91 Total Protein 8.8 H Albumin 3.9 Microbiology Microbiology Results: Microbiology 09/08/23 03:22 Blood - Venous Blood Culture - Preliminary No growth after 48 hours. 09/08/23 03:22 Blood - Venous Blood Culture - Preliminary No growth after 48 hours. 08/20/23 16:53 Lung - Suctioned Gram Stain - Final 08/20/23 16:53 Lung - Suctioned Sputum Culture - Final Stefanie albicans Stefanie dubliniensis 08/19/23 02:59 Blood - Venous Blood Culture - Final Propionibacterium acnes 08/19/23 02:59 Blood - Venous Blood Culture - Final Propionibacterium acnes 08/19/23 Unknown Urine Catheterized - Bess Catheter Urine Culture - Final No growth. Progress Note: A&P Assessment and plan (1) Metabolic encephalopathy: Status: Acute (2) Polysubstance abuse: Status: Acute (3) Aspiration pneumonia: Status: Acute (4) Acute hypoxemic respiratory failure: Status: Acute (5) NAOMI (acute kidney injury): Status: Acute (6) Rhabdomyolysis: Status: Acute Plan Mr. Jerson Taveras is a 53-year-old male with PMH of depression, GERD, dysphagia, BPH, bipolar, anemia, alcohol and opiate abuse, anxiety, GI bleed, achalasia s/p heller myotomy and balloon dilations was found unresponsive at home he was intubated and placed on ventilator support due to significant right-sided aspiration pneumonia, was in shock needing Levophed support, acute kidney injury due to rhabdomyolysis a he was admitted to MICU, eventually extubated and transferred to the floor. He was dialyzed for the concerns of uremic encephalopathy with very slight improvement in his mental status. MRI of the brain showed anoxic brain injury, his mentation in the fluid continued to be very poor, Neurology was consulted who opined he had a poor prognosis. In the floor he continued to be having poor mentation, slightly alternating every day. On 09/11/2023 he was found unresponsive with no respiratory efforts so he was intubated and brought back to the ICU Neuro: Acute encephalopathy secondary to anoxic brain injury after being found down. MRI of the brain suggestive of anoxic brain injury, clinically throughout this 3 weeks of hospitalization patient has a very poor mental status, not following any commands throughout the hospitalization he went postextubation with mentation fluctuating between drowsiness to stupor. His prognosis is poor, has been explained in detail to patient's daughter. Given her the option of comfort care versus tracheostomy, she states she needs time until Thursday to decide. CT head did not show any acute intracranial pathology UDS positive for cocaine, opiates and fentanyl upon admission On propofol for sedation Cardiac: Blood pressure stable Respiratory: Acute hypoxemic respiratory failure due to aspiration pneumonia right more than left Currently on ventilator support increase in oxygen requirement overnight On PRVC mode FiO2 40%, peep 5, tidal volume 400, rate 20 Peak pressures and plateau pressures are under the curve Ventilator management bundle with head end elevation, aspiration precaution, chlorhexidine mouthwash, daily awakening trials, daily spontaneous breathing trials GI: Continue tube feeds Renal: Acute kidney injury possibly secondary to rhabdomyolysis, diuresing well but very poor clearance started on renal replacement therapy Getting another session of renal replacement therapy this morning due to poor clearance We will closely monitor I's and O's Avoid nephrotoxic medications Heme: Chronic anemia, closely monitor H&H, transfuse for hemoglobin less than 7 grams/deciliter Infectious disease: Aspiration pneumonia Treated with Zosyn earlier, MRSA nares negative Lungs clear on x-ray today Endocrine: Blood sugars under control Sliding scale insulin as needed Musculoskeletal: Decubitus ulcer prevention protocol Lines: Right IJ hemodialysis catheter Bess catheter Prophylaxis: Heparin, pantoprazole Quality Stroke Does the patient have a stroke diagnosis?: No VTE Prior VTE?: No VTE Risk Level:: Medical - low VTE Device Contraindication: N/A - Device Ordered VTE Drug Contraindication: N/A - Med Ordered
[2023-09-12] MEDS: amLODIPine Besylate 10 MG TABLET PO (13:19)
[2023-09-12 13:39] LABS: Glucose, Whole Blood 151 mg/dL (60-115)
--- NOTE | 2023-09-12 16:28 | HO.SKINPHOTO ---
Location: Coccyx Category: MASD Blanchable redness to bilateral buttocks.
[2023-09-12] MEDS: Nystatin Cream 15 GM TUBE 1 APPL TOPICAL ×2 (16:40→19:54)
[2023-09-12] MEDS: Chlorhexidine Gluc Oral Rinse 15 ML MOUTHWASH BUCCAL ×2 (17:07→21:50)
[2023-09-12 18:04] LABS: Glucose, Whole Blood 148 mg/dL (60-115)
[2023-09-12 23:31] LABS: Glucose, Whole Blood 116 mg/dL (60-115)
[2023-09-13] VITALS (39 sets, daily range): BP systolic 91–132; BP diastolic 42–70; PULSE 55–107; RESP 15–32; TEMP 35–37.5; O2SAT 97–100; BMI 26.1
[2023-09-13] MEDS: 0.9 % Sodium Chloride Flush 3 ML SYRINGE IVFLUSH ×4 (01:07→21:26)
[2023-09-13] MEDS: propofoL 1,000 MG/100 ML VIAL 8.35 MG IVCONT ×2 (02:08→15:31)
[2023-09-13] MEDS: Heparin Sodium,Porcine 5,000 UNIT/ML VIAL 5000 UNIT SUBCUT (02:23)
[2023-09-13] MEDS: cefEPime HCl 2 GM in 0.9 % Sodium Chloride 50 ML IV (02:27)
[2023-09-13 04:51] LABS: VBG Base Excess 15.1 mmol/L; VBG HCO3 35 mmol/L (22-26); VBG pCO2 29 mmHg; VBG pH 7.69 (7.32-7.43); VBG pO2 70 mmHg
[2023-09-13 05:00] LABS: Venous Blood Gas Refer to POC result
[2023-09-13 05:10] LABS: Mean Corpuscular HGB Conc 33.8 g/dl (31.0-36.0); Mean Corpuscular Hemoglobin 30.4 pg (27.0-33.0); Mean Corpuscular Volume 89.9 fL (80.0-98.0); Mean Platelet Volume 11.7 fL (9.4-12.4); NRBC Pct Auto 0.3 /100WBC (0.0-0.2); Platelet Count 229 X10*3/uL (160-400); Red Blood Count 2.27 X10*6/uL (4.60-5.80); Red Cell Distribution Width 21.8 % (11.0-16.0); White Blood Count 23.4 X10*3/uL (4.8-10.8)
[2023-09-13 05:12] LABS: Hemoglobin 6.9 g/dl (14.0-18.0)
[2023-09-13 05:13] LABS: Hematocrit 20.4 % (42.0-52.0)
[2023-09-13 05:34] LABS: Alanine Aminotransferase 24 U/L (0-40); Albumin Level 3.1 g/dL (3.5-5.0); Alkaline Phosphatase 77 U/L (39-117); Anion Gap 20 (12-20); Aspartate Amino Transferase 43 U/L (5-37); Bilirubin Total 0.4 mg/dL (0.0-1.0); Blood Urea Nitrogen 79 mg/dL (9-16); Calcium 8.2 mg/dL (8.4-10.2); Carbon Dioxide 29 mmol/L (22-29); Chloride 87 mmol/L (96-108); Creatinine Clr Calc Pharmacy 23.2; Estimated Glomerular Filt Rate 18; Glucose Random 129 mg/dL (60-115); Potassium 2.9 mmol/L (3.3-5.1); Sodium 133 mmol/L (135-145); Total Protein 7.3 g/dL (6.5-8.0)
[2023-09-13 05:42] LABS: Band Neutrophils Percent 2 % (3-5); Eosinophils Absolute Manual 2.6 X10*3/uL (0.0-0.4); Eosinophils Percent Manual 11 % (0-4); Lymphocytes Absolute Manual 0.5 X10*3/uL (1.2-4.9); Lymphocytes Percent Manual 2 % (20-40); Monocytes Absolute Manual 0.5 X10*3/uL (0.1-1.2); Monocytes Percent Manual 2 % (2-11); Neutrophils Absolute Manual 19.9 X10*3/uL (2.0-8.3); Neutrophils Percent Manual 83 % (45-73); Platelet Estimate NORMAL (NORMAL); Platelet Morphology Comment NORMAL; RBC Morphology NOTED
[2023-09-13 05:43] LABS: Hypochromasia 1+ (5-14) /OIF; Polychromasia 1+ (0-2) /OIF; Schistocytes 1+ (0-2) /OIF; Spherocytes 1+ (0-2) /OIF
[2023-09-13] MEDS: Sodium Bicarbonate 8.4% 150 MEQ in Dextrose 5 % 850 ML 100 MEQ IV (06:00)
[2023-09-13] MEDS: Lactated Ringers 500 ML 999 ML IV (06:29)
[2023-09-13] MEDS: Pantoprazole Sodium 40 MG/10 ML VIAL IVPUSH (06:37)
[2023-09-13] MEDS: propofoL 1,000 MG/100 ML VIAL 12.53 MG IVCONT (07:21)
[2023-09-13] MEDS: Chlorhexidine Gluc Oral Rinse 15 ML MOUTHWASH BUCCAL ×3 (07:21→21:21)
[2023-09-13] MEDS: Nystatin Cream 15 GM TUBE 1 APPL TOPICAL ×2 (07:56→21:26)
[2023-09-13 08:18] LABS: OBS Int Ctl Valid YES; OBS1 NEGATIVE (NEGATIVE)
--- NOTE | 2023-09-13 11:06 | P.PNCC_ITS ---
Subjective Subjective Date of Service: 09/13/23 Critical Care Time (minutes): 40 Comment: Continues to be on ventilator support, poor mental status Drop in hemoglobin to 6.9 along with drop in other cell lineages; but Hb drop is more than others Undergoing session of hemodialysis with a PRBC transfusion this morning Physical Exam 2 Vital Signs: Vital Signs: Last Vital Signs Temp 98.6 F 09/13/23 11:00 Pulse 65 09/13/23 11:00 Resp 16 09/13/23 11:00 BP 122/61 09/13/23 11:00 Pulse Ox 100 09/13/23 11:00 O2 Del Method Mechanical Ventil ation 09/13/23 11:00 O2 Flow Rate 40 09/11/23 20:00 FiO2 24 09/13/23 11:00 BMI result Body Mass Index 26.1 General: Patient in acute distress, ill appearing and tired appearing Nutritional Appearance: Poor nourished and under weight Eyes: appearance normal, both eyes and all related structures; Alignment and Position: alignment normal and position normal Neck: No lymphadenopathy, no thyromegaly Resp: bilateral air entry equal, occasional added sounds present in bilateral lung bases Cardio: Regular rate, regular rhythm; Heart sounds: S1 normal heart sound present and S2 normal heart sound present GI: soft, nontender, no guarding, no hepatosplenomegaly : bladder normal to inspection, bladder normal to palpation, no renal angle tenderness Skin: no rashes or lesions noted and elasticity normal Neuro: Not following any commands, no focal deficits Objective Data Labs 09/13/23 04:35 09/13/23 04:35 Labs: Laboratory Results - last 24 hr 09/12/23 09/12/23 09/12/23 13:35 18:00 23:28 WBC RBC Hgb Hct MCV MCH MCHC RDW Plt Count MPV Immature Gran % (Auto) Neut % (Auto) Lymph % (Auto) [place] % (Auto) Eos % (Auto) Baso % (Auto) Lymph # (Auto) [place] # (Auto) Eos # (Auto) Baso # (Auto) Abs Immat Gran (auto) Absolute Neuts (auto) Absolute Nucleated RBC Nucleated RBC % (auto) Neutrophils % (Manual) Band Neutrophils % Lymphocytes % (Manual) Monocytes % (Manual) Eosinophils % (Manual) Abs Neuts (Manual) Lymphocytes # (Manual) Monocytes # (Manual) Eosinophils # (Manual) Platelet Estimate Plt Morphology Comment RBC Morphology Polychromasia Hypochromasia Spherocytes Schistocytes VBG pH VBG pCO2 VBG pO2 VBG HCO3 VBG O2 Saturation VBG Base Excess Sodium Potassium Chloride Carbon Dioxide Anion Gap BUN Creatinine Estim Creat Clear Calc Estimated GFR POC Glucose 151 H 148 H 116 H Random Glucose Calcium Total Bilirubin AST ALT Alkaline Phosphatase Total Protein Albumin Stool Occult Blood Blood Type Antibody Screen Crossmatch 09/13/23 09/13/23 09/13/23 04:35 04:42 05:39 WBC 23.4 H RBC 2.27 L D Hgb 6.9 L* D Hct 20.4 L* D MCV 89.9 MCH 30.4 MCHC 33.8 RDW 21.8 H Plt Count 229 D MPV 11.7 Immature Gran % (Auto) Cancelled Neut % (Auto) Cancelled Lymph % (Auto) Cancelled [place] % (Auto) Cancelled Eos % (Auto) Cancelled Baso % (Auto) Cancelled Lymph # (Auto) Cancelled [place] # (Auto) Cancelled Eos # (Auto) Cancelled Baso # (Auto) Cancelled Abs Immat Gran (auto) Cancelled Absolute Neuts (auto) Cancelled Absolute Nucleated RBC 0.060 H Nucleated RBC % (auto) 0.3 H Neutrophils % (Manual) 83 H Band Neutrophils % 2 L Lymphocytes % (Manual) 2 L Monocytes % (Manual) 2 Eosinophils % (Manual) 11 H Abs Neuts (Manual) 19.9 H Lymphocytes # (Manual) 0.5 L Monocytes # (Manual) 0.5 Eosinophils # (Manual) 2.6 H Platelet Estimate NORMAL Plt Morphology Comment NORMAL RBC Morphology NOTED Polychromasia 1+ (0-2) Hypochromasia 1+ (5-14) Spherocytes 1+ (0-2) Schistocytes 1+ (0-2) VBG pH 7.69 H* VBG pCO2 29 VBG pO2 70 VBG HCO3 35 H VBG O2 Saturation 96.0 VBG Base Excess 15.1 Sodium 133 L Potassium 2.9 L* D Chloride 87 L Carbon Dioxide 29 Anion Gap 20 BUN 79 H Creatinine 3.48 H Estim Creat Clear Calc 23.2 Estimated GFR 18 POC Glucose Random Glucose 129 H Calcium 8.2 L D Total Bilirubin 0.4 AST 43 H ALT 24 Alkaline Phosphatase 77 Total Protein 7.3 Albumin 3.1 L Stool Occult Blood Blood Type O Positive Antibody Screen NEGATIVE Crossmatch See Detail 09/13/23 07:52 WBC RBC Hgb Hct MCV MCH MCHC RDW Plt Count MPV Immature Gran % (Auto) Neut % (Auto) Lymph % (Auto) [place] % (Auto) Eos % (Auto) Baso % (Auto) Lymph # (Auto) [place] # (Auto) Eos # (Auto) Baso # (Auto) Abs Immat Gran (auto) Absolute Neuts (auto) Absolute Nucleated RBC Nucleated RBC % (auto) Neutrophils % (Manual) Band Neutrophils % Lymphocytes % (Manual) Monocytes % (Manual) Eosinophils % (Manual) Abs Neuts (Manual) Lymphocytes # (Manual) Monocytes # (Manual) Eosinophils # (Manual) Platelet Estimate Plt Morphology Comment RBC Morphology Polychromasia Hypochromasia Spherocytes Schistocytes VBG pH VBG pCO2 VBG pO2 VBG HCO3 VBG O2 Saturation VBG Base Excess Sodium Potassium Chloride Carbon Dioxide Anion Gap BUN Creatinine Estim Creat Clear Calc Estimated GFR POC Glucose Random Glucose Calcium Total Bilirubin AST ALT Alkaline Phosphatase Total Protein Albumin Stool Occult Blood NEGATIVE Blood Type Antibody Screen Crossmatch Microbiology Microbiology Results: Microbiology 09/08/23 03:22 Blood - Venous Blood Culture - Final No growth after 5 days. 09/08/23 03:22 Blood - Venous Blood Culture - Final No growth after 5 days. 08/20/23 16:53 Lung - Suctioned Gram Stain - Final 08/20/23 16:53 Lung - Suctioned Sputum Culture - Final Stefanie albicans Stefanie dubliniensis 08/19/23 02:59 Blood - Venous Blood Culture - Final Propionibacterium acnes 08/19/23 02:59 Blood - Venous Blood Culture - Final Propionibacterium acnes 08/19/23 Unknown Urine Catheterized - Bess Catheter Urine Culture - Final No growth. Progress Note: A&P Assessment and plan (1) Metabolic encephalopathy: Status: Acute (2) Polysubstance abuse: Status: Acute (3) Aspiration pneumonia: Status: Acute (4) Acute hypoxemic respiratory failure: Status: Acute (5) NAOMI (acute kidney injury): Status: Acute (6) Rhabdomyolysis: Status: Acute (7) Multifocal pneumonia: Status: Acute Plan Mr. Jerson Taveras is a 53-year-old male with PMH of depression, GERD, dysphagia, BPH, bipolar, anemia, alcohol and opiate abuse, anxiety, GI bleed, achalasia s/p heller myotomy and balloon dilations was found unresponsive at home he was intubated and placed on ventilator support due to significant right- sided aspiration pneumonia, was in shock needing Levophed support, acute kidney injury due to rhabdomyolysis a he was admitted to MICU, eventually extubated and transferred to the floor. He was dialyzed for the concerns of uremic encephalopathy with very slight improvement in his mental status. MRI of the brain showed anoxic brain injury, his mentation in the fluid continued to be very poor, Neurology was consulted who opined he had a poor prognosis. In the floor he continued to be having poor mentation, slightly alternating every day. On 09/11/2023 he was found unresponsive with no respiratory efforts so he was intubated and brought back to the ICU; ongoing goals of care discussion with patient's POA Araceli and daughter Laurie. Neuro: Acute encephalopathy secondary to anoxic brain injury after being found down. MRI of the brain suggestive of anoxic brain injury, clinically throughout this 3 weeks of hospitalization patient has a very poor mental status, not following any commands throughout the hospitalization he went postextubation with mentation fluctuating between drowsiness to stupor. His prognosis is poor, has been explained in detail to patient's daughter and also POA his nephew Dheeraj. Given her the option of comfort care versus tracheostomy, she states she needs time until Thursday to decide. CT head did not show any acute intracranial pathology UDS positive for cocaine, opiates and fentanyl upon admission On propofol for sedation Cardiac: Blood pressure stable Respiratory: Acute hypoxemic respiratory failure due to aspiration pneumonia right more than left Currently on ventilator support increase in oxygen requirement overnight On PRVC mode FiO2 40%, peep 5, tidal volume 400, rate 20, would not wean from the ventilator given his poor mental status Peak pressures and plateau pressures are under the curve Ventilator management bundle with head end elevation, aspiration precaution, chlorhexidine mouthwash GI: Continue tube feeds Renal: Acute kidney injury possibly secondary to rhabdomyolysis, diuresing well but very poor clearance started on renal replacement therapy Getting another session of renal replacement therapy this morning due to poor clearance and need for Hb transfusion We will closely monitor I's and O's Avoid nephrotoxic medications Heme: Chronic anemia, closely monitor H&H, transfuse for hemoglobin less than 7 grams/deciliter Infectious disease: Aspiration pneumonia Treated with Zosyn earlier, MRSA nares negative Lungs clear on x-ray today Endocrine: Blood sugars under control Sliding scale insulin as needed Musculoskeletal: Decubitus ulcer prevention protocol Lines: Right IJ hemodialysis catheter, need to talk to Nephrology to see if he needs tunneled cath Bess catheter Prophylaxis: Heparin, pantoprazole Quality Stroke Does the patient have a stroke diagnosis?: No VTE Prior VTE?: No VTE Risk Level:: Medical - low VTE Device Contraindication: N/A - Device Ordered VTE Drug Contraindication: N/A - Med Ordered
[2023-09-13] MEDS: amLODIPine Besylate 10 MG TABLET PO (12:28)
[2023-09-13 12:39] LABS: Glucose, Whole Blood 119 mg/dL (60-115)
[2023-09-13 18:46] LABS: Glucose, Whole Blood 99 mg/dL (60-115)
[2023-09-13 21:14] LABS: Hematocrit 22.9 % (42.0-52.0); Hemoglobin 7.9 g/dl (14.0-18.0)
[2023-09-13] MEDS: propofoL 1,000 MG/100 ML VIAL 20.88 MG IVCONT (21:22)
[2023-09-14] VITALS (37 sets, daily range): BP systolic 99–143; BP diastolic 47–68; PULSE 62–104; RESP 15–22; TEMP 34.5–37.6; O2SAT 95–100; BMI 24.4
[2023-09-14 00:04] LABS: Glucose, Whole Blood 81 mg/dL (60-115)
[2023-09-14] MEDS: propofoL 1,000 MG/100 ML VIAL 20.88 MG IVCONT ×2 (01:44→05:51)
[2023-09-14] MEDS: cefEPime HCl 2 GM in 0.9 % Sodium Chloride 50 ML IV (02:24)
--- NOTE | 2023-09-14 04:26 | PC.NURSE ---
CARE ASSUMED 7PM...REMAINS INTUBATED/VCV VENT SUPPORT...PROPOFOL 20 MCG/KG/MIN AT SHIFT CHANGE..EYES OPEN..NO TRACKING...EXTREMETIES FLACCID..STRONG FORCEFUL COUGH REFLEX...MARKED VENT DYSYNCHRONY...SUCTIONED SMALL AMOUNT WHITE SPUTUM VIA ETT AND CLEAR SPUTUM ORALLY...PROPOFOL TITRATED PER MAR FROM 20 TO 50 MCG/KG/MIN PER ICU PA WITH IMPROVED VENT SYNCHRONY...BP STABLE....TUBE FEEDS 45 CC/HR AND H20 FLUSH 240ML Q6H...INCONTINANT MODERATE URINE AND STOOL 3AM..BLADDER SCANNED AFTER INCONTINANCE FOR 139ML...REMAINS WITH RASH TO THIGHS AND PERIRECTAL AREA AND SMALL COCCYX SLIT PER REPORT...NSR...NO DYSRHYTHMIAS
[2023-09-14 05:21] LABS: VBG HCO3 28 mmol/L (22-26); VBG pCO2 31 mmHg; VBG pH 7.56 (7.32-7.43); VBG pO2 48 mmHg
[2023-09-14 05:28] LABS: Venous Blood Gas Refer to POC result
[2023-09-14 05:34] LABS: Hematocrit 23.1 % (42.0-52.0); Hemoglobin 7.9 g/dl (14.0-18.0); Mean Corpuscular HGB Conc 34.2 g/dl (31.0-36.0); Mean Corpuscular Hemoglobin 31.6 pg (27.0-33.0); Mean Corpuscular Volume 92.4 fL (80.0-98.0); Mean Platelet Volume 10.6 fL (9.4-12.4); Platelet Count 182 X10*3/uL (160-400); Red Cell Distribution Width 19.7 % (11.0-16.0); White Blood Count 16.6 X10*3/uL (4.8-10.8)
[2023-09-14] MEDS: Pantoprazole Sodium 40 MG/10 ML VIAL IVPUSH (05:50)
[2023-09-14 05:59] LABS: Band Neutrophils Percent 2 % (3-5); Basophils Abs Manual 0.2 X10*3/uL (0.0-0.2); Basophils Percent Manual 1 % (0-2); Eosinophils Absolute Manual 1.5 X10*3/uL (0.0-0.4); Eosinophils Percent Manual 9 % (0-4); Lymphocytes Absolute Manual 0.7 X10*3/uL (1.2-4.9); Lymphocytes Percent Manual 4 % (20-40); Monocytes Absolute Manual 0.5 X10*3/uL (0.1-1.2); Monocytes Percent Manual 3 % (2-11); Neutrophils Absolute Manual 13.8 X10*3/uL (2.0-8.3); Neutrophils Percent Manual 81 % (45-73); Nucleated Red Blood Cells 1 /100WBC (0-0)
[2023-09-14 06:00] LABS: Alanine Aminotransferase 24 U/L (0-40); Albumin Level 3.3 g/dL (3.5-5.0); Alkaline Phosphatase 86 U/L (39-117); Anion Gap 14 (12-20); Aspartate Amino Transferase 34 U/L (5-37); Bilirubin Total 0.4 mg/dL (0.0-1.0); Blood Urea Nitrogen 35 mg/dL (9-16); Calcium 9.1 mg/dL (8.4-10.2); Carbon Dioxide 26 mmol/L (22-29); Chloride 94 mmol/L (96-108); Creatinine Clr Calc Pharmacy 38.6; Estimated Glomerular Filt Rate 33; Glucose Random 92 mg/dL (60-115); Potassium 2.7 mmol/L (3.3-5.1); Sodium 131 mmol/L (135-145); Total Protein 7.4 g/dL (6.5-8.0)
[2023-09-14 06:01] LABS: Hypochromasia 1+ (5-14) /OIF; Platelet Estimate NORMAL (NORMAL); Platelet Morphology Comment NOTED; Polychromasia 1+ (0-2) /OIF; RBC Morphology NOTED; Schistocytes 1+ (0-2) /OIF; Spherocytes 1+ (0-2) /OIF
--- NOTE | 2023-09-14 07:18 | P.PNCC_ITS ---
Subjective Subjective Date of Service: 09/14/23 Critical Care Time (minutes): 90 Physical Exam 2 Vital Signs: Vital Signs: Last Vital Signs Temp 99.1 F 09/14/23 07:00 Pulse 73 09/14/23 07:00 Resp 16 09/14/23 07:00 BP 130/66 09/14/23 07:00 Pulse Ox 100 09/14/23 07:00 O2 Del Method Mechanical Ventil ation 09/14/23 07:00 O2 Flow Rate 40 09/11/23 20:00 FiO2 25 09/14/23 07:00 BMI result Body Mass Index 24.4 Const: Other: intubated, responsive to verbal stimulus, intermittently tracks; unable to follow commands General: comfortable, no acute distress and well developed HEENT: Head: Yes normal to inspection, Yes No palpable skull fracture present, Yes normocephalic and Yes atraumatic Eyes: General: appearance normal, both eyes and all related structures Neck: Neck: Yes normal visual inspection, Yes full ROM, Yes no meningeal signs, Yes trachea midline and Yes supple Chest: Chest palpation & inspection: normal inspection of the chest Resp: Other: some appreciable mild rhonchi; no appreciable rales, wheezing Cardio: Rate: regular rate Rhythm: regular rhythm GI: Inspection: Yes normal to inspection, No Abdominal wall edema and No distended Palpation (GI): Soft to palpation, not firm, nontender, no guarding and not rigid : Male General Exam: Yes normal external exam Skin: General skin exam: no rashes or lesions noted Neuro: Other: as described above; no appreciable spontaneous movements in all 4 extremities General: tone normal and no meningeal signs Extrem: Other: appreciable anasarca Psych: Other: unable to assess Objective Data Labs 09/14/23 05:14 09/14/23 05:14 Labs: Laboratory Results - last 24 hr 09/13/23 09/13/23 09/13/23 05:39 07:52 12:34 WBC RBC Hgb Hct MCV MCH MCHC RDW Plt Count MPV Immature Gran % (Auto) Neut % (Auto) Lymph % (Auto) [place] % (Auto) Eos % (Auto) Baso % (Auto) Lymph # (Auto) [place] # (Auto) Eos # (Auto) Baso # (Auto) Abs Immat Gran (auto) Absolute Neuts (auto) Absolute Nucleated RBC Nucleated RBC % (auto) Neutrophils % (Manual) Band Neutrophils % Lymphocytes % (Manual) Monocytes % (Manual) Eosinophils % (Manual) Basophils % (Manual) Abs Neuts (Manual) Lymphocytes # (Manual) Monocytes # (Manual) Eosinophils # (Manual) Basophils # (Manual) Nucleated RBCs Platelet Estimate Plt Morphology Comment RBC Morphology Polychromasia Hypochromasia Spherocytes Schistocytes VBG pH VBG pCO2 VBG pO2 VBG HCO3 VBG O2 Saturation VBG Base Excess Sodium Potassium Chloride Carbon Dioxide Anion Gap BUN Creatinine Estim Creat Clear Calc Estimated GFR POC Glucose 119 H Random Glucose Calcium Total Bilirubin AST ALT Alkaline Phosphatase Total Protein Albumin Stool Occult Blood NEGATIVE Blood Type O Positive Antibody Screen NEGATIVE Crossmatch See Detail 09/13/23 09/13/23 09/13/23 18:43 21:06 23:59 WBC RBC Hgb 7.9 L Hct 22.9 L MCV MCH MCHC RDW Plt Count MPV Immature Gran % (Auto) Neut % (Auto) Lymph % (Auto) [place] % (Auto) Eos % (Auto) Baso % (Auto) Lymph # (Auto) [place] # (Auto) Eos # (Auto) Baso # (Auto) Abs Immat Gran (auto) Absolute Neuts (auto) Absolute Nucleated RBC Nucleated RBC % (auto) Neutrophils % (Manual) Band Neutrophils % Lymphocytes % (Manual) Monocytes % (Manual) Eosinophils % (Manual) Basophils % (Manual) Abs Neuts (Manual) Lymphocytes # (Manual) Monocytes # (Manual) Eosinophils # (Manual) Basophils # (Manual) Nucleated RBCs Platelet Estimate Plt Morphology Comment RBC Morphology Polychromasia Hypochromasia Spherocytes Schistocytes VBG pH VBG pCO2 VBG pO2 VBG HCO3 VBG O2 Saturation VBG Base Excess Sodium Potassium Chloride Carbon Dioxide Anion Gap BUN Creatinine Estim Creat Clear Calc Estimated GFR POC Glucose 99 81 Random Glucose Calcium Total Bilirubin AST ALT Alkaline Phosphatase Total Protein Albumin Stool Occult Blood Blood Type Antibody Screen Crossmatch 09/14/23 09/14/23 05:09 05:14 WBC 16.6 H RBC 2.50 L Hgb 7.9 L Hct 23.1 L MCV 92.4 MCH 31.6 MCHC 34.2 RDW 19.7 H Plt Count 182 MPV 10.6 Immature Gran % (Auto) Cancelled Neut % (Auto) Cancelled Lymph % (Auto) Cancelled [place] % (Auto) Cancelled Eos % (Auto) Cancelled Baso % (Auto) Cancelled Lymph # (Auto) Cancelled [place] # (Auto) Cancelled Eos # (Auto) Cancelled Baso # (Auto) Cancelled Abs Immat Gran (auto) Cancelled Absolute Neuts (auto) Cancelled Absolute Nucleated RBC 0.000 Nucleated RBC % (auto) 0.0 Neutrophils % (Manual) 81 H Band Neutrophils % 2 L Lymphocytes % (Manual) 4 L Monocytes % (Manual) 3 Eosinophils % (Manual) 9 H Basophils % (Manual) 1 Abs Neuts (Manual) 13.8 H Lymphocytes # (Manual) 0.7 L Monocytes # (Manual) 0.5 Eosinophils # (Manual) 1.5 H Basophils # (Manual) 0.2 Nucleated RBCs 1 H Platelet Estimate NORMAL Plt Morphology Comment NOTED RBC Morphology NOTED Polychromasia 1+ (0-2) Hypochromasia 1+ (5-14) Spherocytes 1+ (0-2) Schistocytes 1+ (0-2) VBG pH 7.56 H VBG pCO2 31 VBG pO2 48 VBG HCO3 28 H VBG O2 Saturation 84.0 VBG Base Excess 6.0 Sodium 131 L Potassium 2.7 L* Chloride 94 L Carbon Dioxide 26 Anion Gap 14 BUN 35 H Creatinine 2.09 H Estim Creat Clear Calc 38.6 Estimated GFR 33 POC Glucose Random Glucose 92 Calcium 9.1 D Total Bilirubin 0.4 AST 34 ALT 24 Alkaline Phosphatase 86 Total Protein 7.4 Albumin 3.3 L Stool Occult Blood Blood Type Antibody Screen Crossmatch Microbiology Microbiology Results: Microbiology 09/08/23 03:22 Blood - Venous Blood Culture - Final No growth after 5 days. 09/08/23 03:22 Blood - Venous Blood Culture - Final No growth after 5 days. 08/20/23 16:53 Lung - Suctioned Gram Stain - Final 08/20/23 16:53 Lung - Suctioned Sputum Culture - Final Stefanie albicans Stefanie dubliniensis 08/19/23 02:59 Blood - Venous Blood Culture - Final Propionibacterium acnes 08/19/23 02:59 Blood - Venous Blood Culture - Final Propionibacterium acnes 08/19/23 Unknown Urine Catheterized - Bess Catheter Urine Culture - Final No growth. Progress Note: A&P Assessment and plan (1) Aspiration pneumonia: Status: Acute (2) Acute hypoxemic respiratory failure: Status: Acute (3) Acute renal failure: Status: Acute (4) Anoxic brain injury: Status: Acute Plan Patient is a 53 Y M w/ psychiatric comorbidities, opioid misuse, and alcohol misuse, presenting initially on 08/18 unresponsive, found to have pneumonia, c/b respiratory failure, intubated, and shock, c/b acute renal failure, admitted MICU, improved, and transferred to floor; hospital course c/b encephalopathy, found to have anoxic brain injury and significant uremia; on 09/10, patient found to be obtunded, c/b respiratory failure, re-intubated, re-admitted MICU; N: encephalopathy, likely multifactorial, though significant contribution from anoxic brain injury; on propofol gtt; wean as tolerated CV: no acute issues R: acute respiratory failure, likely d/t aspiration; wean ventilator as tolerated GI: no acute issues; tube feeds : acute renal failure in setting of rhabdomyolysis, shock; hemodialysis today; appreciate nephrology recommendations H: anemia, likely iatrogenic; transfuse as needed; of note, prior gastrointestinal bleeding; chemical DVT prophylaxis ID: likely aspiration pneumonia, s/p zosyn E: no acute issues; to continue to monitor for hypo-/hyper-glycemia S: appreciable poor neurological prognosis; ongoing goals of care discussion w/ family Quality Stroke Does the patient have a stroke diagnosis?: No VTE Prior VTE?: No VTE Risk Level:: Medical - low VTE Device Contraindication: N/A - Device Ordered VTE Drug Contraindication: N/A - Med Ordered
[2023-09-14] MEDS: Albumin Human 25 % 50 ML 100 ML IV (07:41)
[2023-09-14] MEDS: 0.9 % Sodium Chloride Flush 3 ML SYRINGE IVFLUSH ×2 (07:44→15:30)
[2023-09-14] MEDS: amLODIPine Besylate 10 MG TABLET PO (07:52)
[2023-09-14] MEDS: Chlorhexidine Gluc Oral Rinse 15 ML MOUTHWASH BUCCAL ×3 (07:52→20:45)
[2023-09-14] MEDS: Nystatin Cream 15 GM TUBE 1 APPL TOPICAL ×2 (08:01→20:45)
[2023-09-14 08:47] LABS: Ammonia 32 umol/L (13-55)
--- NOTE | 2023-09-14 08:59 | MHC.SLORD ---
Speech Language Pathology Order Status: Pt remains intubated and vented, [employer] consult on hold pending extubation.
[2023-09-14 09:15] LABS: TSH reflex Free T4 2.69 uIU/mL (0.32-4.0)
--- NOTE | 2023-09-14 09:55 | MHC.CLN ---
F/U PT RE-INTUBATED 09/11/23 PT TRANSFERRED TO ICU OGT IN PLACE PT RECEIVING NEPRO AT MAX GOAL RATE 45ML/HR WITH 240ML FREE WATER FLUSHES Q 6 HRS PROVIDES 1944KCALS (2385KCALS WITH SEDATION; 34KCALS/KG), 87G PROTEIN (1.25G/KG), 1745ML TOTAL FREE WATER FROM FORMULA AND FLUSHES (25ML/KG) REVIEWED LABS AND NOTED SERUM NA 131-RECOMMEND DECREASING FREE WATER FLUSHES TO 120 ML Q 6 HRS TO PROVIDE 1265ML TOTAL WATER FROM FORMULA AND FLUSHES (18ML/KG) MONITOR TOLERANCE, RESIDUALS AND LYTES
[2023-09-14] MEDS: Potassium Chloride/H20 20 MEQ/100 ML PIGGYBACK 100 MEQ IV (10:44)
--- NOTE | 2023-09-14 11:11 | MHC.CM.PN ---
discussed pt's poor prognosis w/his HCP Dheeraj. Dheeraj asks that MD contact pt's dtr Laurie so she may be made aware of pt's condition for inclusion w/decision making. No changes to code status at this time although it appears that pt may transition to [employer]. CM to follow.
[2023-09-14 12:14] LABS: Glucose, Whole Blood 91 mg/dL (60-115)
--- NOTE | 2023-09-14 13:07 | P.PNNP_ITS ---
Subjective Subjective Date of Service: 09/15/23 Interval history: Events noted; Very ill. All recent data reviewed; Physical Exam 2 Vital Signs: Vital Signs: Last Vital Signs Temp 99.0 F 09/14/23 12:57 Pulse 78 09/14/23 12:57 Resp 17 09/14/23 12:57 BP 131/57 L 09/14/23 12:57 Pulse Ox 100 09/14/23 12:57 O2 Del Method Mechanical Ventil ation 09/14/23 12:57 O2 Flow Rate 40 09/11/23 20:00 FiO2 25 09/14/23 12:57 BMI result Body Mass Index 24.4 Objective Data Labs 09/15/23 05:24 09/15/23 05:24 Labs: Laboratory Results - last 24 hr 09/13/23 09/13/23 09/13/23 18:43 21:06 23:59 WBC RBC Hgb 7.9 L Hct 22.9 L MCV MCH MCHC RDW Plt Count MPV Immature Gran % (Auto) Neut % (Auto) Lymph % (Auto) [place] % (Auto) Eos % (Auto) Baso % (Auto) Lymph # (Auto) [place] # (Auto) Eos # (Auto) Baso # (Auto) Abs Immat Gran (auto) Absolute Neuts (auto) Absolute Nucleated RBC Nucleated RBC % (auto) Neutrophils % (Manual) Band Neutrophils % Lymphocytes % (Manual) Monocytes % (Manual) Eosinophils % (Manual) Basophils % (Manual) Abs Neuts (Manual) Lymphocytes # (Manual) Monocytes # (Manual) Eosinophils # (Manual) Basophils # (Manual) Nucleated RBCs Platelet Estimate Plt Morphology Comment RBC Morphology Polychromasia Hypochromasia Spherocytes Schistocytes VBG pH VBG pCO2 VBG pO2 VBG HCO3 VBG O2 Saturation VBG Base Excess Sodium Potassium Chloride Carbon Dioxide Anion Gap BUN Creatinine Estim Creat Clear Calc Estimated GFR POC Glucose 99 81 Random Glucose Calcium Total Bilirubin AST ALT Alkaline Phosphatase Ammonia Total Protein Albumin TSH 09/14/23 09/14/23 09/14/23 05:09 05:14 08:35 WBC 16.6 H RBC 2.50 L Hgb 7.9 L Hct 23.1 L MCV 92.4 MCH 31.6 MCHC 34.2 RDW 19.7 H Plt Count 182 MPV 10.6 Immature Gran % (Auto) Cancelled Neut % (Auto) Cancelled Lymph % (Auto) Cancelled [place] % (Auto) Cancelled Eos % (Auto) Cancelled Baso % (Auto) Cancelled Lymph # (Auto) Cancelled [place] # (Auto) Cancelled Eos # (Auto) Cancelled Baso # (Auto) Cancelled Abs Immat Gran (auto) Cancelled Absolute Neuts (auto) Cancelled Absolute Nucleated RBC 0.000 Nucleated RBC % (auto) 0.0 Neutrophils % (Manual) 81 H Band Neutrophils % 2 L Lymphocytes % (Manual) 4 L Monocytes % (Manual) 3 Eosinophils % (Manual) 9 H Basophils % (Manual) 1 Abs Neuts (Manual) 13.8 H Lymphocytes # (Manual) 0.7 L Monocytes # (Manual) 0.5 Eosinophils # (Manual) 1.5 H Basophils # (Manual) 0.2 Nucleated RBCs 1 H Platelet Estimate NORMAL Plt Morphology Comment NOTED RBC Morphology NOTED Polychromasia 1+ (0-2) Hypochromasia 1+ (5-14) Spherocytes 1+ (0-2) Schistocytes 1+ (0-2) VBG pH 7.56 H VBG pCO2 31 VBG pO2 48 VBG HCO3 28 H VBG O2 Saturation 84.0 VBG Base Excess 6.0 Sodium 131 L Potassium 2.7 L* Chloride 94 L Carbon Dioxide 26 Anion Gap 14 BUN 35 H Creatinine 2.09 H Estim Creat Clear Calc 38.6 Estimated GFR 33 POC Glucose Random Glucose 92 Calcium 9.1 D Total Bilirubin 0.4 AST 34 ALT 24 Alkaline Phosphatase 86 Ammonia 32 Total Protein 7.4 Albumin 3.3 L TSH 2.69 09/14/23 12:10 WBC RBC Hgb Hct MCV MCH MCHC RDW Plt Count MPV Immature Gran % (Auto) Neut % (Auto) Lymph % (Auto) [place] % (Auto) Eos % (Auto) Baso % (Auto) Lymph # (Auto) [place] # (Auto) Eos # (Auto) Baso # (Auto) Abs Immat Gran (auto) Absolute Neuts (auto) Absolute Nucleated RBC Nucleated RBC % (auto) Neutrophils % (Manual) Band Neutrophils % Lymphocytes % (Manual) Monocytes % (Manual) Eosinophils % (Manual) Basophils % (Manual) Abs Neuts (Manual) Lymphocytes # (Manual) Monocytes # (Manual) Eosinophils # (Manual) Basophils # (Manual) Nucleated RBCs Platelet Estimate Plt Morphology Comment RBC Morphology Polychromasia Hypochromasia Spherocytes Schistocytes VBG pH VBG pCO2 VBG pO2 VBG HCO3 VBG O2 Saturation VBG Base Excess Sodium Potassium Chloride Carbon Dioxide Anion Gap BUN Creatinine Estim Creat Clear Calc Estimated GFR POC Glucose 91 Random Glucose Calcium Total Bilirubin AST ALT Alkaline Phosphatase Ammonia Total Protein Albumin TSH Microbiology Microbiology Results: Microbiology 09/08/23 03:22 Blood - Venous Blood Culture - Final No growth after 5 days. 09/08/23 03:22 Blood - Venous Blood Culture - Final No growth after 5 days. 08/20/23 16:53 Lung - Suctioned Gram Stain - Final 08/20/23 16:53 Lung - Suctioned Sputum Culture - Final Stefanie albicans Stefanie dubliniensis 08/19/23 02:59 Blood - Venous Blood Culture - Final Propionibacterium acnes 08/19/23 02:59 Blood - Venous Blood Culture - Final Propionibacterium acnes 08/19/23 Unknown Urine Catheterized - Bess Catheter Urine Culture - Final No growth. 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 No renal recovery yet. Next HD Sat/Sun/Mon; Volume optimization on HD In view of uremia and severe hypercalcemia we will continue with hemodialysis until renal recovery. Goals of care need to be established if he is not improving Shall monitor for renal recovery; C/W rest of current management for now Time Spent With Patient Time: Total time managing care of this patient today ____ minutes. Progress Note: Quality Stroke Does the patient have a stroke diagnosis?: No
[2023-09-14 15:07] LABS: Alanine Aminotransferase 22 U/L (0-40); Albumin Level 3.4 g/dL (3.5-5.0); Alkaline Phosphatase 86 U/L (39-117); Anion Gap 13 (12-20); Aspartate Amino Transferase 31 U/L (5-37); Bilirubin Total 0.4 mg/dL (0.0-1.0); Blood Urea Nitrogen 40 mg/dL (9-16); Calcium 9.3 mg/dL (8.4-10.2); Carbon Dioxide 26 mmol/L (22-29); Chloride 95 mmol/L (96-108); Creatinine Clr Calc Pharmacy 35.1; Estimated Glomerular Filt Rate 30; Glucose Random 90 mg/dL (60-115); Phosphorus 4.2 mg/dL (2.7-4.5); Potassium 3.2 mmol/L (3.3-5.1); Sodium 131 mmol/L (135-145); Total Protein 7.4 g/dL (6.5-8.0)
--- NOTE | 2023-09-14 15:51 | PC.NURSE ---
pie note p: alteration in respiratory function i: per nursing care plan e: pt remains intubated/mechanically ventilated. switched to PSV 12/5, 21% at 1500 and tolerating well. occasional coughing fits that resolve with oral and endotracheal suctioning. pt maintaining O2 sat > 95%. p: alteration in neuro function i: per nursing care plan e: weaned off propfol. pt follows simple commands and tracks speaker. camera in room to prevent pulling of lines and tubes. p: alteration in integumentary function i: per nursing care plan e: turned and repositioned Q2. bilateral heel boots in place on legs. pt given full bath with skin care.
[2023-09-14 18:19] LABS: Glucose, Whole Blood 98 mg/dL (60-115)
[2023-09-14] MEDS: propofoL 1,000 MG/100 ML VIAL 4.18 MG IVCONT (19:50)
[2023-09-14 23:54] LABS: Glucose, Whole Blood 90 mg/dL (60-115)
[2023-09-15] VITALS (31 sets, daily range): BP systolic 109–150; BP diastolic 53–77; PULSE 73–98; RESP 15–30; TEMP 34.6–37.6; O2SAT 92–100; BMI 23.8
[2023-09-15] MEDS: propofoL 1,000 MG/100 ML VIAL 16.7 MG IVCONT (01:10)
[2023-09-15] MEDS: 0.9 % Sodium Chloride Flush 3 ML SYRINGE IVFLUSH ×3 (01:11→15:18)
[2023-09-15] MEDS: cefEPime HCl 2 GM in 0.9 % Sodium Chloride 50 ML IV (03:50)
[2023-09-15 05:27] LABS: VBG Base Excess 4.7 mmol/L; VBG HCO3 26 mmol/L (22-26); VBG pCO2 31 mmHg; VBG pH 7.54 (7.32-7.43); VBG pO2 48 mmHg
[2023-09-15 05:56] LABS: MANUAL DIFF FLAG NO
[2023-09-15 05:58] LABS: Basophils Percent Auto 0.2 % (0-2); Eosinophils Absolute Auto 1.3 X10*3/uL (0.0-0.4); Eosinophils Percent Auto 10.1 % (0-4); Hematocrit 22.4 % (42.0-52.0); Hemoglobin 7.5 g/dl (14.0-18.0); Lymphocytes Absolute Auto 1.4 X10*3/uL (1.2-4.9); Lymphocytes Percent Auto 10.9 % (20-40); Mean Corpuscular HGB Conc 33.5 g/dl (31.0-36.0); Mean Corpuscular Hemoglobin 30.6 pg (27.0-33.0); Mean Corpuscular Volume 91.4 fL (80.0-98.0); Mean Platelet Volume 11.1 fL (9.4-12.4); Monocytes Percent Auto 7.7 % (2-11); Neutrophils Absolute Auto 8.5 x10*3/uL (2.0-8.3); Neutrophils Percent Auto 67.1 % (45-73); Platelet Count 190 X10*3/uL (160-400); Red Blood Count 2.45 X10*6/uL (4.60-5.80); Red Cell Distribution Width 19.7 % (11.0-16.0); White Blood Count 12.7 X10*3/uL (4.8-10.8)
[2023-09-15 06:24] LABS: Alanine Aminotransferase 20 U/L (0-40); Albumin Level 3.4 g/dL (3.5-5.0); Alkaline Phosphatase 90 U/L (39-117); Anion Gap 16 (12-20); Aspartate Amino Transferase 28 U/L (5-37); Bilirubin Total 0.3 mg/dL (0.0-1.0); Blood Urea Nitrogen 51 mg/dL (9-16); Calcium 9.4 mg/dL (8.4-10.2); Carbon Dioxide 24 mmol/L (22-29); Chloride 96 mmol/L (96-108); Creatinine Clr Calc Pharmacy 33.5; Estimated Glomerular Filt Rate 28; Glucose Random 97 mg/dL (60-115); Magnesium 2.1 mg/dL (1.6-2.6); Phosphorus 4.4 mg/dL (2.7-4.5); Potassium 2.8 mmol/L (3.3-5.1); Sodium 133 mmol/L (135-145); Total Protein 7.3 g/dL (6.5-8.0)
[2023-09-15] MEDS: Pantoprazole Sodium 40 MG/10 ML VIAL IVPUSH (06:52)
[2023-09-15] MEDS: Potassium Chloride/H20 40 MEQ/100 ML PIGGYBACK 50 MEQ IV (06:52)
[2023-09-15 07:06] LABS: Venous Blood Gas Refer to POC result
[2023-09-15] MEDS: amLODIPine Besylate 10 MG TABLET PO (08:41)
[2023-09-15] MEDS: Potassium Chloride Packet 20 MEQ PACKET 40 MEQ PO (08:41)
[2023-09-15] MEDS: Nystatin Cream 15 GM TUBE 1 APPL TOPICAL ×2 (08:43→20:15)
[2023-09-15] MEDS: Chlorhexidine Gluc Oral Rinse 15 ML MOUTHWASH BUCCAL (08:43)
--- NOTE | 2023-09-15 09:00 | P.PNCC_ITS ---
Subjective Subjective Date of Service: 09/15/23 Interval History: no significant overnight events Critical Care Time (minutes): 90 Physical Exam 2 Vital Signs: Vital Signs: Last Vital Signs Temp 99.1 F 09/15/23 08:00 Pulse 84 09/15/23 08:00 Resp 18 09/15/23 08:00 BP 126/69 09/15/23 08:41 Pulse Ox 97 09/15/23 08:00 O2 Del Method Mechanical Ventil ation 09/15/23 08:00 O2 Flow Rate 40 09/11/23 20:00 FiO2 21 09/15/23 08:00 BMI result Body Mass Index 23.8 Const: Other: intubated, not sedated General: comfortable, no acute distress, well developed, alert, awake and Physically active HEENT: Head: Yes normal to inspection, Yes normocephalic and Yes atraumatic Eyes: General: appearance normal, both eyes and all related structures Neck: Neck: Yes normal visual inspection, Yes full ROM, Yes no meningeal signs, Yes trachea midline and Yes supple Chest: Chest palpation & inspection: normal inspection of the chest Resp: Other: no appreciable rales, rhonchi, wheezing anterior lung short Cardio: Rate: regular rate Rhythm: regular rhythm GI: Inspection: Yes normal to inspection, No Abdominal wall edema and No distended Palpation (GI): Soft to palpation, not firm, nontender, no guarding and not rigid : Male General Exam: Yes normal external exam Skin: General skin exam: no rashes or lesions noted Neuro: General: tone normal, moves all extremities, no meningeal signs and no focal motor deficits Extrem: Other: 1+ pitting edema to bilateral shins General: Yes normal to inspection, Yes full ROM and Yes capillary refill normal Psych: Appearance: grossly normal Objective Data Labs 09/15/23 05:24 09/15/23 05:24 Labs: Laboratory Results - last 24 hr 09/14/23 09/14/23 09/14/23 08:35 12:10 14:47 WBC RBC Hgb Hct MCV MCH MCHC RDW Plt Count MPV Immature Gran % (Auto) Neut % (Auto) Lymph % (Auto) [place] % (Auto) Eos % (Auto) Baso % (Auto) Lymph # (Auto) [place] # (Auto) Eos # (Auto) Baso # (Auto) Abs Immat Gran (auto) Absolute Neuts (auto) Absolute Nucleated RBC Nucleated RBC % (auto) VBG pH VBG pCO2 VBG pO2 VBG HCO3 VBG O2 Saturation VBG Base Excess Sodium 131 L Potassium 3.2 L Chloride 95 L Carbon Dioxide 26 Anion Gap 13 BUN 40 H Creatinine 2.30 H Estim Creat Clear Calc 35.1 Estimated GFR 30 POC Glucose 91 Random Glucose 90 Calcium 9.3 Phosphorus 4.2 Magnesium 2.0 Total Bilirubin 0.4 AST 31 ALT 22 Alkaline Phosphatase 86 Total Protein 7.4 Albumin 3.4 L TSH 2.69 09/14/23 09/14/23 09/15/23 18:14 23:47 05:19 WBC RBC Hgb Hct MCV MCH MCHC RDW Plt Count MPV Immature Gran % (Auto) Neut % (Auto) Lymph % (Auto) [place] % (Auto) Eos % (Auto) Baso % (Auto) Lymph # (Auto) [place] # (Auto) Eos # (Auto) Baso # (Auto) Abs Immat Gran (auto) Absolute Neuts (auto) Absolute Nucleated RBC Nucleated RBC % (auto) VBG pH 7.54 H VBG pCO2 31 VBG pO2 48 VBG HCO3 26 VBG O2 Saturation 79.0 VBG Base Excess 4.7 Sodium Potassium Chloride Carbon Dioxide Anion Gap BUN Creatinine Estim Creat Clear Calc Estimated GFR POC Glucose 98 90 Random Glucose Calcium Phosphorus Magnesium Total Bilirubin AST ALT Alkaline Phosphatase Total Protein Albumin TSH 09/15/23 05:24 WBC 12.7 H RBC 2.45 L Hgb 7.5 L Hct 22.4 L MCV 91.4 MCH 30.6 MCHC 33.5 RDW 19.7 H Plt Count 190 MPV 11.1 Immature Gran % (Auto) 4.0 H Neut % (Auto) 67.1 Lymph % (Auto) 10.9 L [place] % (Auto) 7.7 Eos % (Auto) 10.1 H Baso % (Auto) 0.2 Lymph # (Auto) 1.4 [place] # (Auto) 1.0 Eos # (Auto) 1.3 H Baso # (Auto) 0.0 Abs Immat Gran (auto) 0.50 H Absolute Neuts (auto) 8.5 H Absolute Nucleated RBC 0.000 Nucleated RBC % (auto) 0.0 VBG pH VBG pCO2 VBG pO2 VBG HCO3 VBG O2 Saturation VBG Base Excess Sodium 133 L Potassium 2.8 L* Chloride 96 Carbon Dioxide 24 Anion Gap 16 BUN 51 H Creatinine 2.41 H Estim Creat Clear Calc 33.5 Estimated GFR 28 POC Glucose Random Glucose 97 Calcium 9.4 Phosphorus 4.4 Magnesium 2.1 Total Bilirubin 0.3 AST 28 ALT 20 Alkaline Phosphatase 90 Total Protein 7.3 Albumin 3.4 L TSH Microbiology Microbiology Results: Microbiology 09/08/23 03:22 Blood - Venous Blood Culture - Final No growth after 5 days. 09/08/23 03:22 Blood - Venous Blood Culture - Final No growth after 5 days. 08/20/23 16:53 Lung - Suctioned Gram Stain - Final 08/20/23 16:53 Lung - Suctioned Sputum Culture - Final Stefanie albicans Stefanie dubliniensis 08/19/23 02:59 Blood - Venous Blood Culture - Final Propionibacterium acnes 08/19/23 02:59 Blood - Venous Blood Culture - Final Propionibacterium acnes 08/19/23 Unknown Urine Catheterized - Bess Catheter Urine Culture - Final No growth. Progress Note: A&P Assessment and plan (1) Acute hypoxemic respiratory failure: Status: Acute (2) Aspiration pneumonia: Status: Acute (3) Acute renal failure: Status: Acute (4) Metabolic encephalopathy: Status: Acute Plan Patient is a 53 Y M w/ psychiatric comorbidities, opioid misuse, and alcohol misuse, presenting initially on 08/18 unresponsive, found to have pneumonia, c/b respiratory failure, intubated, and shock, c/b acute renal failure, admitted MICU, improved, and transferred to floor; hospital course c/b encephalopathy, found to have anoxic brain injury and significant uremia; on 09/10, patient found to be obtunded, c/b respiratory failure, re-intubated, re-admitted MICU; N: encephalopathy, likely multifactorial; of note, initial concern for anoxic brain injury, to re-engage neurology for input on prognosis R: acute respiratory failure, likely d/t aspiration; wean ventilator as tolerated GI: no acute issues; tube feeds : acute renal failure in setting of rhabdomyolysis, shock; hemodialysis today; appreciate nephrology recommendations H: anemia, likely iatrogenic; transfuse as needed; of note, prior gastrointestinal bleeding; chemical DVT prophylaxis ID: likely aspiration pneumonia, s/p zosyn E: no acute issues; to continue to monitor for hypo-/hyper-glycemia S: still appreciable poor overall prognosis; ongoing goals of care discussion w/ family Quality Stroke Does the patient have a stroke diagnosis?: No VTE Prior VTE?: No VTE Risk Level:: Medical - low VTE Device Contraindication: N/A - Device Ordered VTE Drug Contraindication: N/A - Med Ordered
--- NOTE | 2023-09-15 10:03 | MHC.CM.PN ---
Pt continues on ventilatory support and HD. Neurologically he seems to be exhibiting improvement: tracking, following some commands. Goals of care today include sedation vacation and PSV trials. Broad STR referrals made as it seems pt may recover but require ongoing and likely extensive medical care following [facility] [place]. CM to follow
--- NOTE | 2023-09-15 10:04 | MHC.CLN ---
F/U REVIEWED LABS AND NOTED SERUM NA 133 PT RECEIVING NEPRO AT MAX GOAL RATE 45ML/HR WITH 240ML FREE WATER FLUSHES Q 6 HRS PROVIDES 1944KCALS (2385KCALS WITH SEDATION; 34KCALS/KG), 87G PROTEIN (1.25G/KG), 1745ML TOTAL FREE WATER FROM FORMULA AND FLUSHES (25ML/KG) RECOMMEND D/C FREE WATER FLUSHES TO 120 ML Q 6 HRS MONITOR TOLERANCE, RESIDUALS AND LYTES
[2023-09-15 10:12] LABS: Glucose, Whole Blood 110 mg/dL (60-115)
--- NOTE | 2023-09-15 10:36 | MHC.SPEECHCO ---
Pt remains intubated. [employer] following.
--- NOTE | 2023-09-15 12:00 | P.PNNE_ITS ---
Subjective Subjective Date of Service: 09/15/23 Interval History: The patient is being readmitted and reintubated and is now in the ICU from the medical floor. He was seen by me 5 days earlier for moderately severe hypoxic encephalopathy where he just has sleep-wake cycles and does not respond in any other way. His imaging studies showed hypoxia in the basal ganglia and his EEG showed severe diffuse background slowing Critical Care Time (minutes): 5 Comment: Even prior to this most recent episode. His prognosis for neurological recovery is poor. This had been communicated to his nephew, who acts as his local health care proxy he and I had told him and that to should he get worse he should not be intubated however he is now intubated. The exam is limited Physical Exam 2 Vital Signs: Vital Signs: Last Vital Signs Temp 99.1 F 09/15/23 09:00 Pulse 91 09/15/23 11:00 Resp 20 09/15/23 11:00 BP 136/70 09/15/23 11:00 Pulse Ox 97 09/15/23 11:00 O2 Del Method Mechanical Ventil ation 09/15/23 11:00 O2 Flow Rate 40 09/11/23 20:00 FiO2 21 09/15/23 11:00 BMI result Body Mass Index 23.8 Objective Data Labs 09/15/23 05:24 09/15/23 05:24 Labs: Laboratory Results - last 24 hr 09/14/23 09/14/23 09/14/23 12:10 14:47 18:14 WBC RBC Hgb Hct MCV MCH MCHC RDW Plt Count MPV Immature Gran % (Auto) Neut % (Auto) Lymph % (Auto) [place] % (Auto) Eos % (Auto) Baso % (Auto) Lymph # (Auto) [place] # (Auto) Eos # (Auto) Baso # (Auto) Abs Immat Gran (auto) Absolute Neuts (auto) Absolute Nucleated RBC Nucleated RBC % (auto) VBG pH VBG pCO2 VBG pO2 VBG HCO3 VBG O2 Saturation VBG Base Excess Sodium 131 L Potassium 3.2 L Chloride 95 L Carbon Dioxide 26 Anion Gap 13 BUN 40 H Creatinine 2.30 H Estim Creat Clear Calc 35.1 Estimated GFR 30 POC Glucose 91 98 Random Glucose 90 Calcium 9.3 Phosphorus 4.2 Magnesium 2.0 Total Bilirubin 0.4 AST 31 ALT 22 Alkaline Phosphatase 86 Total Protein 7.4 Albumin 3.4 L 06/10/24 06/11/24 06/11/24 23:47 05:19 05:24 WBC 12.7 H RBC 2.45 L Hgb 7.5 L Hct 22.4 L MCV 91.4 MCH 30.6 MCHC 33.5 RDW 19.7 H Plt Count 190 MPV 11.1 Immature Gran % (Auto) 4.0 H Neut % (Auto) 67.1 Lymph % (Auto) 10.9 L [place] % (Auto) 7.7 Eos % (Auto) 10.1 H Baso % (Auto) 0.2 Lymph # (Auto) 1.4 [place] # (Auto) 1.0 Eos # (Auto) 1.3 H Baso # (Auto) 0.0 Abs Immat Gran (auto) 0.50 H Absolute Neuts (auto) 8.5 H Absolute Nucleated RBC 0.000 Nucleated RBC % (auto) 0.0 VBG pH 7.54 H VBG pCO2 31 VBG pO2 48 VBG HCO3 26 VBG O2 Saturation 79.0 VBG Base Excess 4.7 Sodium 133 L Potassium 2.8 L* Chloride 96 Carbon Dioxide 24 Anion Gap 16 BUN 51 H Creatinine 2.41 H Estim Creat Clear Calc 33.5 Estimated GFR 28 POC Glucose 90 Random Glucose 97 Calcium 9.4 Phosphorus 4.4 Magnesium 2.1 Total Bilirubin 0.3 AST 28 ALT 20 Alkaline Phosphatase 90 Total Protein 7.3 Albumin 3.4 L 09/15/23 10:09 WBC RBC Hgb Hct MCV MCH MCHC RDW Plt Count MPV Immature Gran % (Auto) Neut % (Auto) Lymph % (Auto) [place] % (Auto) Eos % (Auto) Baso % (Auto) Lymph # (Auto) [place] # (Auto) Eos # (Auto) Baso # (Auto) Abs Immat Gran (auto) Absolute Neuts (auto) Absolute Nucleated RBC Nucleated RBC % (auto) VBG pH VBG pCO2 VBG pO2 VBG HCO3 VBG O2 Saturation VBG Base Excess Sodium Potassium Chloride Carbon Dioxide Anion Gap BUN Creatinine Estim Creat Clear Calc Estimated GFR POC Glucose 110 Random Glucose Calcium Phosphorus Magnesium Total Bilirubin AST ALT Alkaline Phosphatase Total Protein Albumin Microbiology Microbiology Results: Microbiology 09/08/23 03:22 Blood - Venous Blood Culture - Final No growth after 5 days. 09/08/23 03:22 Blood - Venous Blood Culture - Final No growth after 5 days. 08/20/23 16:53 Lung - Suctioned Gram Stain - Final 08/20/23 16:53 Lung - Suctioned Sputum Culture - Final Stefanie albicans Stefanie dubliniensis 08/19/23 02:59 Blood - Venous Blood Culture - Final Propionibacterium acnes 08/19/23 02:59 Blood - Venous Blood Culture - Final Propionibacterium acnes 08/19/23 Unknown Urine Catheterized - Bess Catheter Urine Culture - Final No growth. Progress Note: A&P Assessment and plan (1) Anoxic brain injury: Status: Acute Assessment and Plan: His prognosis for recovery neurological recovery is poor even prior to this latest worsening. This had been communicated to his nephew was the health care proxy. The prognosis remains poor. In view of for a prolonged period of hypoxia and no meaningful neurological recovery, abnormal MRI findings and EEG. Time Spent With Patient Time: Total time managing care of this patient today ____ minutes. Procedures Date of Service Date of Service: 09/15/23 Quality Stroke Does the patient have a stroke diagnosis?: No VTE Prior VTE?: No VTE Risk Level:: Medical - low VTE Device Contraindication: N/A - Device Ordered VTE Drug Contraindication: N/A - Med Ordered
--- NOTE | 2023-09-15 13:10 | P.PNNP_ITS ---
Subjective Subjective Date of Service: 09/15/23 Interval history: Events noted; Very ill. All recent data reviewed; Unable to get review of system Physical Exam 2 Vital Signs: Vital Signs: Last Vital Signs Temp 99.1 F 09/15/23 12:00 Pulse 90 09/15/23 13:00 Resp 27 H 09/15/23 13:00 BP 150/65 H 09/15/23 13:00 Pulse Ox 93 09/15/23 13:00 O2 Del Method Room Air 09/15/23 13:00 O2 Flow Rate 40 09/11/23 20:00 FiO2 21 09/15/23 12:00 BMI result Body Mass Index 23.8 Const: General: ill appearing Neck: Neck: Yes supple Resp: Auscultation: clear to auscultation bilaterally Cardio: Palpation: no palpable S3 Heart sounds: no rubs GI: Palpation (GI): Soft to palpation Auscultation: normal bowel sounds Neuro: Motor exam (neuro): no asterixis Objective Data Labs 09/15/23 05:24 09/15/23 05:24 Labs: Laboratory Results - last 24 hr 09/14/23 09/14/23 09/14/23 14:47 18:14 23:47 WBC RBC Hgb Hct MCV MCH MCHC RDW Plt Count MPV Immature Gran % (Auto) Neut % (Auto) Lymph % (Auto) [place] % (Auto) Eos % (Auto) Baso % (Auto) Lymph # (Auto) [place] # (Auto) Eos # (Auto) Baso # (Auto) Abs Immat Gran (auto) Absolute Neuts (auto) Absolute Nucleated RBC Nucleated RBC % (auto) VBG pH VBG pCO2 VBG pO2 VBG HCO3 VBG O2 Saturation VBG Base Excess Sodium 131 L Potassium 3.2 L Chloride 95 L Carbon Dioxide 26 Anion Gap 13 BUN 40 H Creatinine 2.30 H Estim Creat Clear Calc 35.1 Estimated GFR 30 POC Glucose 98 90 Random Glucose 90 Calcium 9.3 Phosphorus 4.2 Magnesium 2.0 Total Bilirubin 0.4 AST 31 ALT 22 Alkaline Phosphatase 86 Total Protein 7.4 Albumin 3.4 L 09/15/23 09/15/23 09/15/23 05:19 05:24 10:09 WBC 12.7 H RBC 2.45 L Hgb 7.5 L Hct 22.4 L MCV 91.4 MCH 30.6 MCHC 33.5 RDW 19.7 H Plt Count 190 MPV 11.1 Immature Gran % (Auto) 4.0 H Neut % (Auto) 67.1 Lymph % (Auto) 10.9 L [place] % (Auto) 7.7 Eos % (Auto) 10.1 H Baso % (Auto) 0.2 Lymph # (Auto) 1.4 [place] # (Auto) 1.0 Eos # (Auto) 1.3 H Baso # (Auto) 0.0 Abs Immat Gran (auto) 0.50 H Absolute Neuts (auto) 8.5 H Absolute Nucleated RBC 0.000 Nucleated RBC % (auto) 0.0 VBG pH 7.54 H VBG pCO2 31 VBG pO2 48 VBG HCO3 26 VBG O2 Saturation 79.0 VBG Base Excess 4.7 Sodium 133 L Potassium 2.8 L* Chloride 96 Carbon Dioxide 24 Anion Gap 16 BUN 51 H Creatinine 2.41 H Estim Creat Clear Calc 33.5 Estimated GFR 28 POC Glucose 110 Random Glucose 97 Calcium 9.4 Phosphorus 4.4 Magnesium 2.1 Total Bilirubin 0.3 AST 28 ALT 20 Alkaline Phosphatase 90 Total Protein 7.3 Albumin 3.4 L Microbiology Microbiology Results: Microbiology 09/08/23 03:22 Blood - Venous Blood Culture - Final No growth after 5 days. 09/08/23 03:22 Blood - Venous Blood Culture - Final No growth after 5 days. 08/20/23 16:53 Lung - Suctioned Gram Stain - Final 08/20/23 16:53 Lung - Suctioned Sputum Culture - Final Setfanie albicans Stefanie dubliniensis 08/19/23 02:59 Blood - Venous Blood Culture - Final Propionibacterium acnes 08/19/23 02:59 Blood - Venous Blood Culture - Final Propionibacterium acnes 08/19/23 Unknown Urine Catheterized - Bess Catheter Urine Culture - Final No growth. 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 In view of uremia and severe hypercalcemia he was started on hemodialysis . Urine output as in proved. Creatinine is around 2.4. Hypokalemia due to GI and urinary losses. Acidosis under control. FiO2 requirements remained stable at 21%. No absolute indication for dialysis today. She will watch closely over the next 24-48 hours and see if he needs further dialysis. Continue to avoid nephrotoxic agents. Overall prognosis guarded Time Spent With Patient Time: Total time managing care of this patient today ____ minutes. Progress Note: Quality Stroke Does the patient have a stroke diagnosis?: No
--- NOTE | 2023-09-15 13:53 | HO.WOUND ---
Wound Consult: Initial 53yr old Male [place] [facility] [place] - See progress notes and H&P for detailed history.? Wound consult placed for Gluteal crease wound.? Patient intubated at the time of my assessment remains in ICU. ? Gluteal Crease Etiology: ??MASD (Moisture Associated Skin Damage) - Intertrigo Measurements: 0.2cm x 0.1cm x 0.1cm Wound Bed: small clean open area of partial thickness tissue loss Drainage / Odor: None noted Edges: ? Linear and attached Veronica wound: ?pink blanchable erythema, maceration noted - No Induration, Fluctuance or Warmth noted Goals of Treatment: ? Triad to protect from friction and moisture Of note Wedges have been in use for off loading and repositioning, the patient is on a Low Air Loss Specialty ICU mattress bed, Barrier cream has been in use along with incontinence measures such as condom cath and or primofit (unsuccessful), and Heel Protector boots in place. Recommendations: 1. Turn and Reposition every 2 hours and as needed for patient comfort.? Use pillows or wedges to support off loading positions. 2. Off Load all bony prominences with use of pillows and heel boots if needed.? Apply Preventative foams where needed. ? 3. Monitor for incontinence and moisture control, use barrier creams when needed for prevention and treatment. 4. Provide adequate and supplemental nutrition.? 5. Continue low air loss mattress. 6. When applicable maintain blood glucose levels per Providers order. 7. Gluteal Crease - Off Load Pressure - Cleanse with PH balance spray or wipes, pat dry. ?Apply thin layer of Triad to wound bed - only pat and dab no scrub and rub when soiling occurs. Reapply thin layer PRN after each episode of incontinence. Re-consult wound care Nurse for wound deterioration or wound changes.
[2023-09-15] MEDS: Acetaminophen 1,000 MG/100 ML PIGGYBACK 400 MG IV (15:09)
[2023-09-15] MEDS: Lidocaine 4 % Patch ADH..PATCH 2 PATCH TRANSDERMA (15:14)
[2023-09-15] MEDS: Melatonin 3 MG TABLET 6 MG PO (21:11)
[2023-09-15 22:13] LABS: Glucose, Whole Blood 83 mg/dL (60-115)
[2023-09-16] VITALS (15 sets, daily range): BP systolic 122–158; BP diastolic 54–85; PULSE 56–91; RESP 19–30; TEMP 36.2–37.1; O2SAT 95–100; BMI 23.8
[2023-09-16] MEDS: 0.9 % Sodium Chloride Flush 3 ML SYRINGE IVFLUSH ×2 (01:32→08:20)
[2023-09-16] MEDS: cefEPime HCl 2 GM in 0.9 % Sodium Chloride 50 ML IV (02:12)
[2023-09-16 05:33] LABS: MANUAL DIFF FLAG NO
[2023-09-16 05:35] LABS: Basophils Percent Auto 0.3 % (0-2); Eosinophils Absolute Auto 1.5 X10*3/uL (0.0-0.4); Eosinophils Percent Auto 12.1 % (0-4); Hematocrit 24.2 % (42.0-52.0); Imm Gran Abs Auto 0.27 X10*3/uL (0.00-0.03); Imm Gran Pct Auto 2.2 % (0.0-0.4); Lymphocytes Absolute Auto 1.5 X10*3/uL (1.2-4.9); Lymphocytes Percent Auto 12.1 % (20-40); Mean Corpuscular HGB Conc 33.1 g/dl (31.0-36.0); Mean Corpuscular Hemoglobin 30.7 pg (27.0-33.0); Mean Corpuscular Volume 92.7 fL (80.0-98.0); Mean Platelet Volume 10.5 fL (9.4-12.4); Monocytes Absolute Auto 0.9 X10*3/uL (0.1-1.2); Monocytes Percent Auto 7.3 % (2-11); Neutrophils Absolute Auto 8.3 x10*3/uL (2.0-8.3); Platelet Count 195 X10*3/uL (160-400); Red Blood Count 2.61 X10*6/uL (4.60-5.80); Red Cell Distribution Width 19.1 % (11.0-16.0); White Blood Count 12.5 X10*3/uL (4.8-10.8)
[2023-09-16 05:52] LABS: Alanine Aminotransferase 20 U/L (0-40); Albumin Level 3.5 g/dL (3.5-5.0); Alkaline Phosphatase 104 U/L (39-117); Anion Gap 15 (12-20); Aspartate Amino Transferase 30 U/L (5-37); Bilirubin Total 0.5 mg/dL (0.0-1.0); Blood Urea Nitrogen 54 mg/dL (9-16); Calcium 9.7 mg/dL (8.4-10.2); Carbon Dioxide 21 mmol/L (22-29); Chloride 103 mmol/L (96-108); Creatinine Clr Calc Pharmacy 32.8; Estimated Glomerular Filt Rate 27; Glucose Random 82 mg/dL (60-115); Magnesium 2.2 mg/dL (1.6-2.6); Phosphorus 4.8 mg/dL (2.7-4.5); Potassium 3.4 mmol/L (3.3-5.1); Sodium 136 mmol/L (135-145); Total Protein 7.7 g/dL (6.5-8.0)
[2023-09-16] MEDS: Potassium Chloride Packet 20 MEQ PACKET 40 MEQ PO (06:05)
--- NOTE | 2023-09-16 08:09 | P.PNCC_ITS ---
Subjective Subjective Date of Service: 09/16/23 Interval History: no significant overnight events Critical Care Time (minutes): 60 Physical Exam 2 Vital Signs: Vital Signs: Last Vital Signs Temp 98.7 F 09/16/23 06:00 Pulse 80 09/16/23 07:00 Resp 22 H 09/16/23 07:00 BP 127/67 09/16/23 07:00 Pulse Ox 99 09/16/23 07:00 O2 Del Method Room Air 09/16/23 07:00 O2 Flow Rate 40 09/11/23 20:00 FiO2 21 09/15/23 12:00 BMI result Body Mass Index 23.8 Const: General: cooperative, healthy appearing, comfortable, no acute distress, well developed, alert, awake, Physically active and poor hygiene O rientation/consciousness: oriented to person and oriented to place HEENT: Head: Yes normal to inspection, Yes normocephalic and Yes atraumatic Eyes: General: appearance normal, both eyes and all related structures Neck: Neck: Yes normal visual inspection, Yes full ROM, Yes no meningeal signs, Yes trachea midline and Yes supple Chest: Chest palpation & inspection: normal inspection of the chest Resp: Other: no appreciable rales, rhonchi, wheezing Effort & Inspection: normal respiratory effort Cardio: Rate: regular rate Rhythm: regular rhythm GI: Inspection: Yes normal to inspection, No Abdominal wall edema and No distended Palpation (GI): Soft to palpation, not firm, nontender, no guarding and not rigid : Male General Exam: Yes normal external exam Skin: General skin exam: no rashes or lesions noted Neuro: General: oriented to person, oriented to place, tone normal, moves all extremities, no meningeal signs and no focal motor deficits Extrem: Other: appreciable 1+ pitting edema to bilateral shins General: Yes normal to inspection, Yes full ROM and Yes capillary refill normal Psych: Appearance: grossly normal Objective Data Labs 09/16/23 05:04 09/16/23 05:04 Labs: Laboratory Results - last 24 hr 09/15/23 09/15/23 09/16/23 10:09 22:08 05:04 WBC 12.5 H RBC 2.61 L Hgb 8.0 L Hct 24.2 L MCV 92.7 MCH 30.7 MCHC 33.1 RDW 19.1 H Plt Count 195 MPV 10.5 Immature Gran % (Auto) 2.2 H Neut % (Auto) 66.0 Lymph % (Auto) 12.1 L [place] % (Auto) 7.3 Eos % (Auto) 12.1 H Baso % (Auto) 0.3 Lymph # (Auto) 1.5 [place] # (Auto) 0.9 Eos # (Auto) 1.5 H Baso # (Auto) 0.0 Abs Immat Gran (auto) 0.27 H Absolute Neuts (auto) 8.3 Absolute Nucleated RBC 0.000 Nucleated RBC % (auto) 0.0 Sodium 136 Potassium 3.4 D Chloride 103 Carbon Dioxide 21 L Anion Gap 15 BUN 54 H Creatinine 2.46 H Estim Creat Clear Calc 32.8 Estimated GFR 27 POC Glucose 110 83 Random Glucose 82 Calcium 9.7 Phosphorus 4.8 H Magnesium 2.2 Total Bilirubin 0.5 AST 30 ALT 20 Alkaline Phosphatase 104 Total Protein 7.7 Albumin 3.5 Microbiology Microbiology Results: Microbiology 09/08/23 03:22 Blood - Venous Blood Culture - Final No growth after 5 days. 09/08/23 03:22 Blood - Venous Blood Culture - Final No growth after 5 days. 08/20/23 16:53 Lung - Suctioned Gram Stain - Final 08/20/23 16:53 Lung - Suctioned Sputum Culture - Final Stefanie albicans Stefanie dubliniensis 08/19/23 02:59 Blood - Venous Blood Culture - Final Propionibacterium acnes 08/19/23 02:59 Blood - Venous Blood Culture - Final Propionibacterium acnes 08/19/23 Unknown Urine Catheterized - Bess Catheter Urine Culture - Final No growth. Progress Note: A&P Assessment and plan (1) Acute hypoxemic respiratory failure: Status: Acute (2) Aspiration pneumonia: Status: Acute (3) Acute renal failure: Status: Acute (4) Polysubstance abuse: Status: Acute Plan Patient is a 53 Y M w/ psychiatric comorbidities, opioid misuse, and alcohol misuse, presenting initially on 08/18 unresponsive, found to have pneumonia, c/b respiratory failure, intubated, and shock, c/b acute renal failure, admitted MICU, improved, and transferred to floor; hospital course c/b encephalopathy, found to have anoxic brain injury and significant uremia; on 09/10, patient found to be obtunded, c/b respiratory failure, re-intubated, re-admitted MICU; N: encephalopathy, likely metabolic, improved R: acute respiratory failure, likely d/t aspiration, re-intubated 09/10, extubated 09/15 GI: no acute issues; tube feeds; speech/swallow evaluation today, advance diet as tolerated : acute renal failure in setting of rhabdomyolysis, shock, improving; appreciate nephrology recommendations H: anemia, likely iatrogenic; transfuse as needed; of note, prior gastrointestinal bleeding; chemical DVT prophylaxis ID: likely aspiration pneumonia, s/p zosyn E: no acute issues; to continue to monitor for hypo-/hyper-glycemia S: daily updates given to patient daughter Quality Stroke Does the patient have a stroke diagnosis?: No VTE Prior VTE?: No VTE Risk Level:: Medical - low VTE Device Contraindication: N/A - Device Ordered VTE Drug Contraindication: N/A - Med Ordered
[2023-09-16] MEDS: Lidocaine 4 % Patch ADH..PATCH 2 PATCH TRANSDERMA (08:20)
[2023-09-16] MEDS: amLODIPine Besylate 10 MG TABLET PO (08:20)
[2023-09-16] MEDS: Chlorhexidine Gluc Oral Rinse 15 ML MOUTHWASH BUCCAL (08:20)
[2023-09-16] MEDS: Acetaminophen 1,000 MG/100 ML PIGGYBACK 400 MG IV (08:27)
--- NOTE | 2023-09-16 10:05 | MHC.CLN ---
F/U REVIEWED LABS AND NOTED SERUM NA WNL TF ON HOLD FOR POSSIBLE EXTUBATION PT PREVIOUSLY RECEIVING NEPRO AT MAX GOAL RATE 45ML/HR PROVIDED 1944KCALS, 87G PROTEIN (1.25G/KG), 785ML TOTAL FREE WATER FROM FORMULA FOLLOWING WITH TEAM
[2023-09-16 10:13] LABS: Glucose, Whole Blood 88 mg/dL (60-115)
[2023-09-16] MEDS: Nystatin Cream 15 GM TUBE 1 APPL TOPICAL (10:14)
--- NOTE | 2023-09-16 11:07 | PM.EVENT ---
Event Note Date of Service: 09/16/23 Event Note: Patient was seen and evaluated remains encephalopathic, responsive to stimuli tube feeds running [employer]IC eval pending Nephrology following start PT as tolerated Discuss goals of care with HCP Time Spent With Patient Time: Total time managing care of this patient today ____ minutes.
--- NOTE | 2023-09-16 13:15 | MHC.SL.SWA ---
Risk of Aspiration Due to: Lethargy Hx of Recent Extubation Dysphasia Diet Status: UPGRADE Liquid Consistency and Strategies for Safe Swallow: Liquid Intake Recommendation: Thin Liquid Intake Strategies: Small Sips Solid Food Consistency: Dietary Recommendations: Pureed (NDD1) Oral Medication Intake: Crushed with Puree Please contact the pharmacy regarding appropriate crushable or liquid drug formulations that are available whenever modified delivery is recommended. Compensatory Strategies and Precautions to be Taken for Safe Swallow: Sitting Upright (90 deg) Small Bites and Sips Alternate Liquids/Solids Rate of Ingestion Change Oral Check Supervision While Eating and Drinking for Safe Swallow: Total Assistance (1:1) Swallowing Recommended Treatments: Compens. Strategy Educat. Recommendation for Speech: Inpatient Speech Therapy Comment: Recommend UGRADE to puree solids, thin liquids, and pills crushed in puree. Patient requires 1-1 assist to help with feeding, provide cues (drink slowly), and monitor for s/s aspiration. CHILLER TENDER to continue to follow. If patient has not returned to baseline diet, recommend dysphagia tx at next level of care. Stand In Clinican/Clinical Fellow: No Supervisory Statement: I have reviewed and agree with the student/clinical fellow's documentation: N/A Speech Language Pathologist: Luda Coleman M.A., CCC-CHILLER TENDER
--- NOTE | 2023-09-16 13:19 | P.PNNP_ITS ---
Subjective Subjective Date of Service: 09/16/23 Interval history: No significant overnight events; events noted. Discussed with the hospitalist Physical Exam 2 Vital Signs: Vital Signs: Last Vital Signs Temp 97.1 F 09/16/23 12:30 Pulse 78 09/16/23 12:30 Resp 20 09/16/23 12:30 BP 142/76 H 09/16/23 12:30 Pulse Ox 99 09/16/23 12:30 O2 Del Method Room Air 09/16/23 12:30 O2 Flow Rate 40 09/11/23 20:00 FiO2 21 09/15/23 12:00 BMI result Body Mass Index 23.8 Const: General: no acute distress Neck: Neck: Yes supple Resp: Auscultation: diminished lung sounds Cardio: Rate: regular rate GI: Palpation (GI): Soft to palpation Neuro: Other: Flat affect Objective Data Labs 09/16/23 05:04 09/16/23 05:04 Labs: Laboratory Results - last 24 hr 09/15/23 09/16/23 09/16/23 22:08 05:04 10:09 WBC 12.5 H RBC 2.61 L Hgb 8.0 L Hct 24.2 L MCV 92.7 MCH 30.7 MCHC 33.1 RDW 19.1 H Plt Count 195 MPV 10.5 Immature Gran % (Auto) 2.2 H Neut % (Auto) 66.0 Lymph % (Auto) 12.1 L [place] % (Auto) 7.3 Eos % (Auto) 12.1 H Baso % (Auto) 0.3 Lymph # (Auto) 1.5 [place] # (Auto) 0.9 Eos # (Auto) 1.5 H Baso # (Auto) 0.0 Abs Immat Gran (auto) 0.27 H Absolute Neuts (auto) 8.3 Absolute Nucleated RBC 0.000 Nucleated RBC % (auto) 0.0 Sodium 136 Potassium 3.4 D Chloride 103 Carbon Dioxide 21 L Anion Gap 15 BUN 54 H Creatinine 2.46 H Estim Creat Clear Calc 32.8 Estimated GFR 27 POC Glucose 83 88 Random Glucose 82 Calcium 9.7 Phosphorus 4.8 H Magnesium 2.2 Total Bilirubin 0.5 AST 30 ALT 20 Alkaline Phosphatase 104 Total Protein 7.7 Albumin 3.5 Microbiology Microbiology Results: Microbiology 09/08/23 03:22 Blood - Venous Blood Culture - Final No growth after 5 days. 09/08/23 03:22 Blood - Venous Blood Culture - Final No growth after 5 days. 08/20/23 16:53 Lung - Suctioned Gram Stain - Final 08/20/23 16:53 Lung - Suctioned Sputum Culture - Final Stefanie albicans Stefanie dubliniensis 08/19/23 02:59 Blood - Venous Blood Culture - Final Propionibacterium acnes 08/19/23 02:59 Blood - Venous Blood Culture - Final Propionibacterium acnes 08/19/23 Unknown Urine Catheterized - Bess Catheter Urine Culture - Final No growth. 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 Renal function recovered and does not need any further dialysis for the time being C/W rest of current management for now; should be able to discontinue dialysis catheter if his renal functions remained stable Goals of care need to be established if he is not improving ; Progress Note: Quality Stroke Does the patient have a stroke diagnosis?: No
--- NOTE | 2023-09-16 15:40 | MHC.CM.PN ---
EMR REVIEWED AND PER MD ROUNDS, PT WILL BE TRANSFERR[facility] TO [facility]. CM MET WITH PT AND CHIEF JAILER PER REQUEST OF PRIMARY NURSE HE WANTED TO NAME HIS DAUGHTER COLE HIS HCP. HCP CHANGE COMPLETED. CM WILL CONTINUE TO FOLLOW FOR DC PLAN.
[2023-09-17] VITALS (8 sets, daily range): BP systolic 131–160; BP diastolic 76–88; PULSE 80–99; RESP 16–20; TEMP 36.4–37.3; O2SAT 94–99; BMI 23.4
[2023-09-17] MEDS: diphenhydrAMINE HCL 25 MG CAPSULE 50 MG PO ×2 (00:54→22:49)
[2023-09-17] MEDS: 0.9 % Sodium Chloride Flush 3 ML SYRINGE IVFLUSH ×4 (00:55→21:58)
[2023-09-17] MEDS: cefEPime HCl 2 GM in 0.9 % Sodium Chloride 50 ML IV (04:18)
[2023-09-17 08:04] LABS: Glucose, Whole Blood 96 mg/dL (60-115)
--- NOTE | 2023-09-17 08:49 | P.PNNP_ITS ---
Subjective Subjective Date of Service: 09/21/23 Interval history: Transferred out of ICU Physical Exam 2 Vital Signs: Vital Signs: Last Vital Signs Temp 97.6 F 09/17/23 07:42 Pulse 98 09/17/23 08:39 Resp 18 09/17/23 07:42 BP 160/84 H 09/17/23 08:39 Pulse Ox 99 09/17/23 08:39 O2 Del Method Room Air 09/17/23 07:42 O2 Flow Rate 40 09/11/23 20:00 FiO2 21 09/15/23 12:00 BMI result Body Mass Index 23.4 Const: General: ill appearing Neck: Neck: Yes supple Resp: Auscultation: clear to auscultation bilaterally Cardio: Palpation: no palpable S3 Heart sounds: no rubs GI: Palpation (GI): Soft to palpation Auscultation: normal bowel sounds Neuro: Motor exam (neuro): no asterixis Objective Data Labs 09/21/23 06:01 09/21/23 06:01 Labs: Laboratory Results - last 24 hr 09/16/23 09/17/23 10:09 08:00 POC Glucose 88 96 Microbiology Microbiology Results: Microbiology 09/08/23 03:22 Blood - Venous Blood Culture - Final No growth after 5 days. 09/08/23 03:22 Blood - Venous Blood Culture - Final No growth after 5 days. 08/20/23 16:53 Lung - Suctioned Gram Stain - Final 08/20/23 16:53 Lung - Suctioned Sputum Culture - Final Stefanie albicans Stefanie dubliniensis 08/19/23 02:59 Blood - Venous Blood Culture - Final Propionibacterium acnes 08/19/23 02:59 Blood - Venous Blood Culture - Final Propionibacterium acnes 08/19/23 Unknown Urine Catheterized - Bess Catheter Urine Culture - Final No growth. 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 In view of uremia and severe hypercalcemia he received hemodialysis . Urine output as improved. Creatinine is around 2.4. Hypokalemia due to GI and urinary losses. Acidosis under control. No absolute indication for dialysis today. She will watch closely and see if he needs further dialysis. Continue to avoid nephrotoxic agents. Overall prognosis guarded Time Spent With Patient Time: Total time managing care of this patient today ____ minutes. Progress Note: Quality Stroke Does the patient have a stroke diagnosis?: No
[2023-09-17 09:57] LABS: MANUAL DIFF FLAG NO
[2023-09-17 10:17] LABS: Basophils Percent Auto 0.3 % (0-2); Eosinophils Absolute Auto 1.3 X10*3/uL (0.0-0.4); Eosinophils Percent Auto 12.1 % (0-4); Hematocrit 22.3 % (42.0-52.0); Hemoglobin 7.6 g/dl (14.0-18.0); Imm Gran Abs Auto 0.25 X10*3/uL (0.00-0.03); Imm Gran Pct Auto 2.4 % (0.0-0.4); Lymphocytes Absolute Auto 1.3 X10*3/uL (1.2-4.9); Lymphocytes Percent Auto 11.9 % (20-40); Mean Corpuscular HGB Conc 34.1 g/dl (31.0-36.0); Mean Corpuscular Hemoglobin 30.5 pg (27.0-33.0); Mean Corpuscular Volume 89.6 fL (80.0-98.0); Mean Platelet Volume 10.8 fL (9.4-12.4); Monocytes Absolute Auto 0.7 X10*3/uL (0.1-1.2); Monocytes Percent Auto 6.2 % (2-11); Neutrophils Absolute Auto 7.1 x10*3/uL (2.0-8.3); Neutrophils Percent Auto 67.1 % (45-73); Platelet Count 192 X10*3/uL (160-400); Red Blood Count 2.49 X10*6/uL (4.60-5.80); Red Cell Distribution Width 18.3 % (11.0-16.0); White Blood Count 10.6 X10*3/uL (4.8-10.8)
--- NOTE | 2023-09-17 10:24 | HO.PM.IMPN ---
Subjective Subjective Date of Service: 09/17/23 Interval History: Seen and evaluated this morning Feels better overall tolerating PO denies fever or chills Review of Systems Review of Systems: Yes all other systems are reviewed and are negative Physical Exam Vital Signs: Vital Signs: Last Vital Signs Temp 97.6 F 09/17/23 07:42 Pulse 98 09/17/23 08:39 Resp 18 09/17/23 07:42 BP 160/84 H 09/17/23 08:39 Pulse Ox 99 09/17/23 08:39 O2 Del Method Room Air 09/17/23 07:42 O2 Flow Rate 40 09/11/23 20:00 FiO2 21 09/15/23 12:00 BMI result Body Mass Index 23.4 Const: Other: Constitutional : Awake, interactive, not in distress Neck : Normal inspection, Supple, dialysis catheter in place Cardiovascular : RRR, no JVP, no lower extremity edema Respiratory : good bilateral air entry, no crackles, wheezes or rhonchi Gastrointestinal: soft, lax, Normal bowel sounds, Non tender Skin : Warm, Dry Neurological : Alert & oriented to time and place, No focal deficit Objective Data Active Medications Amlodipine Besylate (Amlodipine Besylate 10 Mg Tablet) 10 mg PO DAILY JAMES; Protocol Last Admin: 09/16/23 08:20 Dose: 10 mg Documented By: CA Diphenhydramine HCl (Diphenhydramine Hcl 25 Mg Capsule) 50 mg PO Q6H PRN PRN Reason: Itching Last Admin: 09/17/23 00:54 Dose: 50 mg Documented By: DEN Glucose (Glucose Gel 15 Gm Gel..Gram.) 15 gm PO Q15M PRN; Protocol PRN Reason: per Hypoglycemia Standing Ord. Cefepime HCl 2 gm/ Sodium (Chloride) 50 mls @ 100 mls/hr IV Q24H JAMES Last Infusion: 09/17/23 04:55 Dose: Infused Documented By: DEN Dextrose (D10) 250 mls @ 750 mls/hr IV Q15M PRN; Protocol PRN Reason: per Hypoglycemia Standing Ord. Lidocaine (Lidocaine 4 % Patch Adh..Patch) 2 patch TRANSDERMA DAILY JAMES; Protocol Last Admin: 09/16/23 08:20 Dose: 2 patch Documented By: CA Nystatin (Nystatin Cream 15 Gm Tube) 1 appl TOPICAL BID JAMES; Protocol Last Admin: 09/16/23 23:28 Dose: Not Given Documented By: DEN Non-Admin Reason: Med Not Available Sodium Chloride (0.9 % Sodium Chloride Flush 3 Ml Syringe) 3 ml IVFLUSH QSHIFT JAMES Last Admin: 09/17/23 00:55 Dose: 3 ml Documented By: DEN Labs 09/17/23 09:41 09/16/23 05:04 Labs: Laboratory Results - last 24 hr 09/17/23 09/17/23 08:00 09:41 MCV 89.6 MCH 30.5 MCHC 34.1 RDW 18.3 H Plt Count 192 MPV 10.8 Immature Gran % (Auto) 2.4 H Neut % (Auto) 67.1 Lymph % (Auto) 11.9 L [place] % (Auto) 6.2 Eos % (Auto) 12.1 H Baso % (Auto) 0.3 Lymph # (Auto) 1.3 [place] # (Auto) 0.7 Eos # (Auto) 1.3 H Baso # (Auto) 0.0 Abs Immat Gran (auto) 0.25 H Absolute Neuts (auto) 7.1 Absolute Nucleated RBC 0.000 Nucleated RBC % (auto) 0.0 POC Glucose 96 Assessment and Plan (1) Anoxic brain injury: Status: Acute (2) Acute renal failure: Status: Acute (3) Metabolic encephalopathy: Status: Acute (4) Acute hypoxemic respiratory failure: Status: Acute (5) Aspiration pneumonia: Status: Acute Plan 55-make admitted through the ICU on 08/18, His past medical history includes depression, GERD, dysphagia, BPH, bipolar disorder, anemia, alcohol and opiate abuse, anxiety, GI bleed who was found obtunded and admitted with rhabdomyolysis, acute kidney injury and shock. Additionally, he developed aspiration pneumonia and was found to have gram-negative fitz sepsis, gastrointestinal bleed, and acute blood anemia. Toxic Metabolic encephalopathy Seems to be an evidence of anoxic brain injury as evident on MRI, and confirmed by Neurologist. Prognosis is guarded EEG done 09/09 showing general slowing seems to be a little better, following PT commands, tolerating INTERNATIONAL FREIGHT FORWARDER sessions and diet consider SNF placement to increase physical and mental therapy Acute hypoxic resp failure d/t Overdose and sepsis 2/2 aspiration PNA resolved To finish 10 days of Cefepime by 09/17 ID following NAOMI 2/2 ATN from Rhabd and shock requiring HD resolving remove HD line Nephrology following Metabolic acidosis resolved Lovenox for DVT prophylaxis The patient will need overnight stay pending removal of HD line, IV antibiotics and safe discharge plan to SNF. Quality Stroke Does the patient have a stroke diagnosis?: No VTE Prior VTE?: No VTE Risk Level:: Medical - low VTE Device Contraindication: N/A - Device Ordered VTE Drug Contraindication: N/A - Med Ordered
[2023-09-17 10:25] LABS: Alanine Aminotransferase 22 U/L (0-40); Albumin Level 3.5 g/dL (3.5-5.0); Alkaline Phosphatase 118 U/L (39-117); Anion Gap 14 (12-20); Aspartate Amino Transferase 32 U/L (5-37); Bilirubin Total 0.5 mg/dL (0.0-1.0); Blood Urea Nitrogen 50 mg/dL (9-16); Calcium 8.9 mg/dL (8.4-10.2); Carbon Dioxide 21 mmol/L (22-29); Chloride 100 mmol/L (96-108); Creatinine Clr Calc Pharmacy 39.1; Estimated Glomerular Filt Rate 34; Glucose Random 114 mg/dL (60-115); Magnesium 1.8 mg/dL (1.6-2.6); Phosphorus 4.6 mg/dL (2.7-4.5); Potassium 4.3 mmol/L (3.3-5.1); Sodium 131 mmol/L (135-145); Total Protein 7.9 g/dL (6.5-8.0)
[2023-09-17 10:46] LABS: Hematocrit 24.3 % (42.0-52.0); Hemoglobin 8.2 g/dl (14.0-18.0); Mean Corpuscular HGB Conc 33.7 g/dl (31.0-36.0); Mean Corpuscular Hemoglobin 30.9 pg (27.0-33.0); Mean Corpuscular Volume 91.7 fL (80.0-98.0); Mean Platelet Volume 9.5 fL (9.4-12.4); Platelet Count 184 X10*3/uL (160-400); Red Blood Count 2.65 X10*6/uL (4.60-5.80); Red Cell Distribution Width 18.1 % (11.0-16.0); White Blood Count 10.3 X10*3/uL (4.8-10.8)
[2023-09-17 10:54] LABS: Anion Gap 13 (12-20); Blood Urea Nitrogen 49 mg/dL (9-16); Calcium 9.1 mg/dL (8.4-10.2); Carbon Dioxide 25 mmol/L (22-29); Chloride 99 mmol/L (96-108); Creatinine Clr Calc Pharmacy 39.5; Estimated Glomerular Filt Rate 34; Glucose Random 111 mg/dL (60-115); Potassium 3.5 mmol/L (3.3-5.1); Sodium 133 mmol/L (135-145)
[2023-09-17] MEDS: amLODIPine Besylate 10 MG TABLET PO (11:03)
[2023-09-17] MEDS: Lidocaine 4 % Patch ADH..PATCH 2 PATCH TRANSDERMA (11:04)
--- NOTE | 2023-09-17 11:36 | MHC.CM.PN ---
Addendum entered by Joanne Rosales RN 09/17/23 11:56: PER CM NOTE 09/15 NEW HCP COMPLETED AND DTR COLE SORIA NAMED, HARD COPY PLACED IN CHART. Original Note: EMR REVIEWED, CM RECEIVED CALL FROM PT'S DTR COLE SORIA [phone] ASKING IF CM COULD HAVE HCP CHANGED, D/T CURRENT HCP DEFERRING TO PT'S DTR CM TO MEET W/PT VIA TREATMENT SPECIALIST TO DISCUSS AND COMPLETE IF PT AGREEABLE. PT CURRENTLY HAS NO STR BED OFFERS LIKELY D/T TO ACTIVE PSA ON ADMIT, CM AWAITING RESPONSE FROM [facility] AND CM TO EXAPND REFERRAL TO [facility] AND [facility] IF [facility] UNABLE TO OFFER.
[2023-09-17 12:16] LABS: Glucose, Whole Blood 111 mg/dL (60-115)
[2023-09-17] MEDS: Tamsulosin HCL 0.4 MG CAPSULE PO (12:42)
--- NOTE | 2023-09-17 13:33 | MHC.SL.SWA ---
Speech Pathologist Impression: Risk of Aspiration Due to: Lethargy Hx of Recent Extubation Dysphasia Diet Status: Recommend CONTINUE on puree (NDD1) with thin liquids, straws ok, pills crushed or whole in puree as needed. Patient continues to need 1-1 feeding due to generalized weakness. Liquid Consistency and Strategies for Safe Swallow: Liquid Intake Recommendation: Thin Liquid Intake Strategies: Small Sips Solid Food Consistency: Dietary Recommendations: Pureed (NDD1) Additional Modifications to Solid Foods: Oral Medication Intake: Crushed with Puree Please contact the pharmacy regarding appropriate crushable or liquid drug formulations that are available whenever modified delivery is recommended. Compensatory Strategies and Precautions to be Taken for Safe Swallow: Sitting Upright (90 deg) Liquids from Cup Liquids from Straw Small Bites and Sips Alternate Liquids/Solids Rate of Ingestion Change Oral Check Supervision While Eating and Drinking for Safe Swallow: Total Assistance (1:1) Foods to Avoid: Swallowing Recommended Treatments: Compens. Strategy Educat. Recommendation for Speech: Inpatient Speech Therapy Comment: Patient was seen at lunch to observe toleration of diet, which was upgraded yesterday from NPO to puree (NDD1) with Thin Liquids, pills crushed in puree. Patient was awake, alert and communicative, and immediately requested the nutritional shake from the tray expressing that he thought it was very good. (communicated with in Maltese). Patient was observed taking sips from the container, which required some hand over hand assistance in order to lift carton and keep steady. Patient was encouraged to go slowly, however did take serial sips of the drink with a timely well coordinated swallow noted. Patient was then trialed on drinking by straw, which again, he took serial sips, but managed/tolerated well with timely swallow and no clinical signs of aspiration. Patient then accepted bites of puree meal, requiring 1-1 feeding, but tolerating very well with timely oral transit and swallow noted. After eating 1/2 meal, patient declined. RD SCIENTIST offered trial of more advanced texture in the form of a softened cracker in ice cream, however when patient saw cracker, he declined, saying he did not think he was ready yet to try it. Patient then accepted the plain ice cream. Patient was additionally observed taking capsule pill in puree (could not be crushed) which he tolerated very well. Recommend CONTINUE on puree (NDD1) with thin liquids, straws ok, pills crushed or whole in puree as needed. Patient continues to need 1-1 feeding due to generalized weakness. RD SCIENTIST will continue to follow, re-eval for upgrade when patient deems he is ready. Frequency/Duration: Date Range for Service Req: Timeline to reassess: Dry [place]ander Clinican/Clinical Fellow: No Supervisory Statement: I have reviewed and agree with the student/clinical fellow's documentation: N/A Speech Language Pathologist: Joanne Foster M.A., CCC-RD SCIENTIST
[2023-09-17] MEDS: Enoxaparin Sodium 40 MG/0.4 ML SYRINGE SUBCUT (15:49)
[2023-09-17 17:51] LABS: Glucose, Whole Blood 91 mg/dL (60-115)
--- NOTE | 2023-09-17 19:21 | PC.NURSE ---
During morning assessment patient complaining of abdominal pain and tenderness upon palpation. Patient bladder scanned showing >900. MD notified and per MD insert andrade cath. Andrade cath was attempted but was unsuccessful, Coude catheter was inserted and patient tolerated well. Upon insertion >1000 was drained patient felt immediate relief. All other needs met at this time and call ibrahim within reach.
[2023-09-17 21:59] LABS: Glucose, Whole Blood 91 mg/dL (60-115)
[2023-09-17] MEDS: Acetaminophen 325 MG TABLET 975 MG PO (23:33)
[2023-09-18] VITALS (9 sets, daily range): BP systolic 130–142; BP diastolic 65–78; PULSE 86–115; RESP 16–26; TEMP 36.2–37.4; O2SAT 98–100; BMI 23.5
[2023-09-18 07:58] LABS: MANUAL DIFF FLAG NO
[2023-09-18 08:15] LABS: Glucose, Whole Blood 95 mg/dL (60-115)
[2023-09-18 08:15] LABS: Basophils Percent Auto 0.5 % (0-2); Eosinophils Absolute Auto 1.2 X10*3/uL (0.0-0.4); Eosinophils Percent Auto 14.6 % (0-4); Hematocrit 23.9 % (42.0-52.0); Hemoglobin 8.1 g/dl (14.0-18.0); Imm Gran Abs Auto 0.05 X10*3/uL (0.00-0.03); Imm Gran Pct Auto 0.6 % (0.0-0.4); Lymphocytes Absolute Auto 1.1 X10*3/uL (1.2-4.9); Lymphocytes Percent Auto 13.9 % (20-40); Mean Corpuscular HGB Conc 33.9 g/dl (31.0-36.0); Mean Corpuscular Hemoglobin 30.5 pg (27.0-33.0); Mean Corpuscular Volume 89.8 fL (80.0-98.0); Mean Platelet Volume 9.7 fL (9.4-12.4); Monocytes Absolute Auto 0.5 X10*3/uL (0.1-1.2); Monocytes Percent Auto 6.2 % (2-11); Neutrophils Absolute Auto 5.1 x10*3/uL (2.0-8.3); Neutrophils Percent Auto 64.2 % (45-73); Platelet Count 174 X10*3/uL (160-400); Red Blood Count 2.66 X10*6/uL (4.60-5.80); Red Cell Distribution Width 17.6 % (11.0-16.0); White Blood Count 7.9 X10*3/uL (4.8-10.8)
[2023-09-18 08:31] LABS: Alanine Aminotransferase 20 U/L (0-40); Albumin Level 3.7 g/dL (3.5-5.0); Alkaline Phosphatase 122 U/L (39-117); Anion Gap 14 (12-20); Aspartate Amino Transferase 28 U/L (5-37); Bilirubin Total 0.5 mg/dL (0.0-1.0); Blood Urea Nitrogen 51 mg/dL (9-16); Calcium 9.3 mg/dL (8.4-10.2); Carbon Dioxide 23 mmol/L (22-29); Chloride 100 mmol/L (96-108); Creatinine Clr Calc Pharmacy 44.8; Estimated Glomerular Filt Rate 39; Glucose Random 89 mg/dL (60-115); Magnesium 1.8 mg/dL (1.6-2.6); Potassium 3.7 mmol/L (3.3-5.1); Sodium 133 mmol/L (135-145); Total Protein 8.1 g/dL (6.5-8.0)
[2023-09-18 08:54] LABS: Prostate Specific Antigen 0.43 ng/mL (<0.05-4.0)
--- NOTE | 2023-09-18 10:13 | HO.PM.IMPN ---
Subjective Subjective Date of Service: 09/18/23 Interval History: Seen and evaluated this morning Feels better overall tolerating PO developed urine retention denies fever or chills Review of Systems Review of Systems: Yes all other systems are reviewed and are negative Physical Exam Vital Signs: Vital Signs: Last Vital Signs Temp 97.2 F 09/18/23 08:00 Pulse 110 H 09/18/23 08:35 Resp 17 09/18/23 08:00 BP 131/76 09/18/23 08:35 Pulse Ox 100 09/18/23 08:35 O2 Del Method Room Air 09/18/23 08:00 O2 Flow Rate 40 09/11/23 20:00 FiO2 21 09/15/23 12:00 BMI result Body Mass Index 23.5 Const: Other: Constitutional : Awake, interactive, not in distress Neck : Normal inspection, Supple, dialysis catheter in place Cardiovascular : RRR, no JVP, no lower extremity edema Respiratory : good bilateral air entry, no crackles, wheezes or rhonchi Gastrointestinal: soft, lax, Normal bowel sounds, Non tender Skin : Warm, Dry, Bess in place Neurological : Alert & oriented to time and place, No focal deficit Objective Data Active Medications Acetaminophen (Acetaminophen 325 Mg Tablet) 975 mg PO Q6H PRN PRN Reason: pain, headache or fever Last Admin: 09/17/23 23:33 Dose: 975 mg Documented By: PARUL Amlodipine Besylate (Amlodipine Besylate 10 Mg Tablet) 10 mg PO DAILY PENDING SALE TO [facility]; Protocol Last Admin: 09/17/23 11:03 Dose: 10 mg Documented By: DIANE Diphenhydramine HCl (Diphenhydramine Hcl 25 Mg Capsule) 50 mg PO Q6H PRN PRN Reason: Itching or insomnia Last Admin: 09/17/23 22:49 Dose: 50 mg Documented By: PARUL Enoxaparin Sodium (Enoxaparin Sodium 40 Mg/0.4 Ml Syringe) 40 mg SUBCUT Q24H JAMES Last Admin: 09/17/23 15:49 Dose: 40 mg Documented By: DIANE Glucose (Glucose Gel 15 Gm Gel..Gram.) 15 gm PO Q15M PRN; Protocol PRN Reason: per Hypoglycemia Standing Ord. Dextrose (D10) 250 mls @ 750 mls/hr IV Q15M PRN; Protocol PRN Reason: per Hypoglycemia Standing Ord. Lidocaine (Lidocaine 4 % Patch Adh..Patch) 2 patch TRANSDERMA DAILY [facility]END[facility]ALE TO [facility]; Protocol Last Admin: 09/17/23 11:04 Dose: 2 patch Documented By: DIANE Nystatin (Nystatin Cream 15 Gm Tube) 1 appl TOPICAL BID PENDING SALE TO [facility]; Protocol Last Admin: 09/17/23 22:48 Dose: Not Given Documented By: PARUL Non-Admin Reason: patient refused Sodium Chloride (0.9 % Sodium Chloride Flush 3 Ml Syringe) 3 ml IVFLUSH QSHIFT PENDING SALE TO [facility] Last Admin: 09/17/23 21:58 Dose: 3 ml Documented By: PARUL Tamsulosin HCl (Tamsulosin Hcl 0.4 Mg Capsule) 0.4 mg PO DAILY PENDING SALE TO [facility] Last Admin: 09/17/23 12:42 Dose: 0.4 mg Documented By: DIANE Zolpidem Tartrate (Zolpidem Tartrate 5 Mg Tablet) 5 mg PO BEDTIME PENDING SALE TO [facility] Labs 09/18/23 06:53 09/18/23 06:53 Labs: Laboratory Results - last 24 hr 09/17/23 09/17/23 09/17/23 09:41 10:35 12:12 MCV 89.6 91.7 MCH 30.5 30.9 MCHC 34.1 33.7 RDW 18.3 H 18.1 H Plt Count 192 184 MPV 10.8 9.5 Immature Gran % (Auto) 2.4 H Neut % (Auto) 67.1 Lymph % (Auto) 11.9 L [place] % (Auto) 6.2 Eos % (Auto) 12.1 H Baso % (Auto) 0.3 Lymph # (Auto) 1.3 [place] # (Auto) 0.7 Eos # (Auto) 1.3 H Baso # (Auto) 0.0 Abs Immat Gran (auto) 0.25 H Absolute Neuts (auto) 7.1 Absolute Nucleated RBC 0.000 0.000 Nucleated RBC % (auto) 0.0 0.0 Anion Gap 14 13 Estim Creat Clear Calc 39.1 39.5 Estimated GFR 34 34 POC Glucose 111 Random Glucose 114 111 Calcium 8.9 D 9.1 Phosphorus 4.6 H Magnesium 1.8 Total Bilirubin 0.5 AST 32 ALT 22 Alkaline Phosphatase 118 H Total Protein 7.9 Albumin 3.5 Prostate Specific Ag 09/17/23 09/17/23 09/18/23 17:46 21:56 06:53 MCV 89.8 MCH 30.5 MCHC 33.9 RDW 17.6 H Plt Count 174 MPV 9.7 Immature Gran % (Auto) 0.6 H Neut % (Auto) 64.2 Lymph % (Auto) 13.9 L [place] % (Auto) 6.2 Eos % (Auto) 14.6 H Baso % (Auto) 0.5 Lymph # (Auto) 1.1 L [place] # (Auto) 0.5 Eos # (Auto) 1.2 H Baso # (Auto) 0.0 Abs Immat Gran (auto) 0.05 H Absolute Neuts (auto) 5.1 Absolute Nucleated RBC 0.000 Nucleated RBC % (auto) 0.0 Anion Gap 14 Estim Creat Clear Calc 44.8 Estimated GFR 39 POC Glucose 91 91 Random Glucose 89 Calcium 9.3 Phosphorus 4.0 Magnesium 1.8 Total Bilirubin 0.5 AST 28 ALT 20 Alkaline Phosphatase 122 H Total Protein 8.1 H Albumin 3.7 Prostate Specific Ag 0.43 09/18/23 08:05 MCV MCH MCHC RDW Plt Count MPV Immature Gran % (Auto) Neut % (Auto) Lymph % (Auto) [place] % (Auto) Eos % (Auto) Baso % (Auto) Lymph # (Auto) [place] # (Auto) Eos # (Auto) Baso # (Auto) Abs Immat Gran (auto) Absolute Neuts (auto) Absolute Nucleated RBC Nucleated RBC % (auto) Anion Gap Estim Creat Clear Calc Estimated GFR POC Glucose 95 Random Glucose Calcium Phosphorus Magnesium Total Bilirubin AST ALT Alkaline Phosphatase Total Protein Albumin Prostate Specific Ag Assessment and Plan (1) Anoxic brain injury: Status: Acute (2) Acute renal failure: Status: Acute Plan 55-make admitted through the ICU on 08/18, His past medical history includes depression, GERD, dysphagia, BPH, bipolar disorder, anemia, alcohol and opiate abuse, anxiety, GI bleed who was found obtunded and admitted with rhabdomyolysis, acute kidney injury and shock. Additionally, he developed aspiration pneumonia and was found to have gram-negative fitz sepsis, gastrointestinal bleed, and acute blood anemia. Toxic Metabolic encephalopathy Seems to be an evidence of anoxic brain injury as evident on MRI, and confirmed by Neurologist. Prognosis is guarded Overall improving mentation and physical activity EEG done 09/09 showing general slowing following PT commands, tolerating SKIN SPECIALIST sessions and diet consider SNF placement to increase physical Acute hypoxic resp failure d/t Overdose and sepsis 2/2 aspiration PNA resolved To finish 10 days of Cefepime today ID following NAOMI 2/2 ATN from Rhabd and shock requiring HD resolving remove HD line Nephrology following Metabolic acidosis resolved Hx drug abuse Addiction team to evaluate, not seeking or asking about any pain meds or other drugs Lovenox for DVT prophylaxis The patient will need overnight stay pending clinical improvement and safe discharge plan to SNF. Quality Stroke Does the patient have a stroke diagnosis?: No VTE Prior VTE?: No VTE Risk Level:: Medical - low VTE Device Contraindication: N/A - Device Ordered VTE Drug Contraindication: N/A - Med Ordered
[2023-09-18] MEDS: Lidocaine 4 % Patch ADH..PATCH 2 PATCH TRANSDERMA (10:55)
[2023-09-18] MEDS: 0.9 % Sodium Chloride Flush 3 ML SYRINGE IVFLUSH ×2 (10:55→17:40)
[2023-09-18] MEDS: Enoxaparin Sodium 40 MG/0.4 ML SYRINGE SUBCUT (10:55)
[2023-09-18] MEDS: Tamsulosin HCL 0.4 MG CAPSULE PO (10:55)
[2023-09-18] MEDS: amLODIPine Besylate 10 MG TABLET PO (10:55)
--- NOTE | 2023-09-18 11:26 | MHC.CLN ---
F/U PT TRANSFERRED TO MEDICAL FLOOR REVIEWED LABS AND NOTED SERUM NA 133 PT MAY NEED FLUID RESTRICTION-FAMILIAR FROM ICU ADMISSION AND PT IS VERY SENSITIVE TO FLUID PO INTAKE 100% X2 MEALS DIET RX: PUREED PER FOREIGN LANGUAGES PROFESSOR PT RECEIVING ENSURE TID PROVIDES 1050KCALS, 60G PROTEIN MONITOR PO INTAKE AND ENCOURAGE SUPPLEMENTS
[2023-09-18 12:18] LABS: Glucose, Whole Blood 110 mg/dL (60-115)
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
--- NOTE | 2023-09-18 14:07 | MHC.SL.SWA ---
Speech Pathologist Impression:Oral phase dysphagia Risk of Aspiration Due to: Lethargy Hx of Recent Extubation Dysphasia Diet Status:UPGRADE from NDD1 to NDD3 Liquid Consistency and Strategies for Safe Swallow: Liquid Intake Recommendation: Thin Liquid Intake Strategies: Small Sips Solid Food Consistency: Dietary Recommendations: Chopped/Advanced (NDD3) Additional Modifications to Solid Foods: Pills whole or crushed in puree per patient's tolerance/preference Oral Medication Intake: Crushed with Puree Please contact the pharmacy regarding appropriate crushable or liquid drug formulations that are available whenever modified delivery is recommended. Compensatory Strategies and Precautions to be Taken for Safe Swallow: Sitting Upright (90 deg) Liquids from Cup Liquids from Straw Small Bites and Sips Alternate Liquids/Solids Rate of Ingestion Change Oral Check Avoid Specific Foods Supervision While Eating and Drinking for Safe Swallow: Total Supervision (1:1) Foods to Avoid: Hard, tough to chew solids Swallowing Recommended Treatments: Compens. Strategy Educat. Recommendation for Speech: Inpatient Speech Therapy Buyer Planner Clinican/Clinical Fellow: No Supervisory Statement: I have reviewed and agree with the student/clinical fellow's documentation: N/A Speech Language Pathologist: Flora Yung M.A., CCC-SUBWAY OPERATOR
--- NOTE | 2023-09-18 15:56 | MHC.CM.PN ---
PER [facility] [place] LIAISON REQUEST, LEVEL ONE COMPLETE AND ACCEPTED ON [facility] WEBSITE W/LESS THAN 30 DAY, MDS FAXED TO [facility] [place] DC TO [facility] [place] WEDNESDAY 09/20.
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
[2023-09-18 17:55] LABS: Appearance Urine Clear; Color Urine Yellow; Glucose Urine UA Negative (Negative); Leukocyte Esterase Urine Trace (Negative); Nitrite Urine Negative (Negative); PH 6.5 (5.0-9.0); Specific Gravity - Urine <= 1.005 (1.005-1.025); UMIC TRIGGER UACC YES; Urine Blood Small (1+) (Negative); Urine Ketones Negative (Negative); Urine Protein 30 (1+) mg/dL (Neg-Trace)
[2023-09-18 18:30] LABS: Bacteria Urine None Seen (None Seen); Hyaline Casts Urine 0-2 /LPF (0-2); RBC Urine 0-2 /HPF (0-2); Squamous Epithelial Cell Urine 0-2 /HPF (0-2); WBC Urine 0-5 /HPF (0-5)
--- NOTE | 2023-09-18 20:14 | P.PNNP_ITS ---
Subjective Subjective Date of Service: 09/18/23 Interval history: Seen and evaluated this morning ;Feels better overall; tolerating PO ; renal functions improved and stable Physical Exam 2 Vital Signs: Vital Signs: Last Vital Signs Temp 98.5 F 09/18/23 19:48 Pulse 114 H 09/18/23 19:48 Resp 24 H 09/18/23 19:48 BP 134/74 09/18/23 19:48 Pulse Ox 99 09/18/23 19:48 O2 Del Method Room Air 09/18/23 19:48 O2 Flow Rate 40 09/11/23 20:00 FiO2 21 09/15/23 12:00 BMI result Body Mass Index 23.5 Const: General: no acute distress Neck: Neck: Yes supple Resp: Auscultation: diminished lung sounds Cardio: Rate: regular rate GI: Palpation (GI): Soft to palpation Neuro: General: moves all extremities Objective Data Labs 09/18/23 06:53 09/18/23 06:53 Labs: Laboratory Results - last 24 hr 09/17/23 09/18/23 09/18/23 21:56 06:53 08:05 WBC 7.9 RBC 2.66 L Hgb 8.1 L Hct 23.9 L MCV 89.8 MCH 30.5 MCHC 33.9 RDW 17.6 H Plt Count 174 MPV 9.7 Immature Gran % (Auto) 0.6 H Neut % (Auto) 64.2 Lymph % (Auto) 13.9 L [place] % (Auto) 6.2 Eos % (Auto) 14.6 H Baso % (Auto) 0.5 Lymph # (Auto) 1.1 L [place] # (Auto) 0.5 Eos # (Auto) 1.2 H Baso # (Auto) 0.0 Abs Immat Gran (auto) 0.05 H Absolute Neuts (auto) 5.1 Absolute Nucleated RBC 0.000 Nucleated RBC % (auto) 0.0 Sodium 133 L Potassium 3.7 Chloride 100 Carbon Dioxide 23 Anion Gap 14 BUN 51 H Creatinine 1.80 H Estim Creat Clear Calc 44.8 Estimated GFR 39 POC Glucose 91 95 Random Glucose 89 Calcium 9.3 Phosphorus 4.0 Magnesium 1.8 Total Bilirubin 0.5 AST 28 ALT 20 Alkaline Phosphatase 122 H Total Protein 8.1 H Albumin 3.7 Prostate Specific Ag 0.43 Urine Color Urine Appearance Urine pH Ur Specific [place] Urine Protein Urine Glucose (UA) Urine Ketones Urine Blood Urine Nitrite Ur Leukocyte Esterase Urine RBC Urine WBC Ur Squamous Epith Cells Urine Bacteria Hyaline Casts 09/18/23 09/18/23 12:14 17:45 WBC RBC Hgb Hct MCV MCH MCHC RDW Plt Count MPV Immature Gran % (Auto) Neut % (Auto) Lymph % (Auto) [place] % (Auto) Eos % (Auto) Baso % (Auto) Lymph # (Auto) [place] # (Auto) Eos # (Auto) Baso # (Auto) Abs Immat Gran (auto) Absolute Neuts (auto) Absolute Nucleated RBC Nucleated RBC % (auto) Sodium Potassium Chloride Carbon Dioxide Anion Gap BUN Creatinine Estim Creat Clear Calc Estimated GFR POC Glucose 110 Random Glucose Calcium Phosphorus Magnesium Total Bilirubin AST ALT Alkaline Phosphatase Total Protein Albumin Prostate Specific Ag Urine Color Yellow Urine Appearance Clear Urine pH 6.5 Ur Specific [place] <= 1.005 Urine Protein 30 (1+) H Urine Glucose (UA) Negative Urine Ketones Negative Urine Blood Small (1+) H Urine Nitrite Negative Ur Leukocyte Esterase Trace H Urine RBC 0-2 Urine WBC 0-5 Ur Squamous Epith Cells 0-2 Urine Bacteria None Seen Hyaline Casts 0-2 Microbiology Microbiology Results: Microbiology 09/08/23 03:22 Blood - Venous Blood Culture - Final No growth after 5 days. 09/08/23 03:22 Blood - Venous Blood Culture - Final No growth after 5 days. 08/20/23 16:53 Lung - Suctioned Gram Stain - Final 08/20/23 16:53 Lung - Suctioned Sputum Culture - Final Stefanie albicans Stefanie dubliniensis 08/19/23 02:59 Blood - Venous Blood Culture - Final Propionibacterium acnes 08/19/23 02:59 Blood - Venous Blood Culture - Final Propionibacterium acnes 08/19/23 Unknown Urine Catheterized - Bess Catheter Urine Culture - Final No growth. Procedures Date of Service Date of Service: 09/18/23 Assessment & Plan Assessment and plan (1) Acute renal failure: Status: Acute Plan NAOMI due to tubular injury secondary to pigment nephropathy/rhabdomyolysis. Renal function recovering and does not need any further dialysis- HD catheter D/Robbie C/W rest of current management for now; needs outpatient follow-up with a [facility] after hospital discharge Progress Note: Quality Stroke Does the patient have a stroke diagnosis?: No
[2023-09-18] MEDS: Zolpidem Tartrate 5 MG TABLET PO (20:37)
[2023-09-18] MEDS: OLANZapine 5 MG TABLET PO (20:37)
[2023-09-18] MEDS: Mirtazapine 15 MG TABLET PO (20:37)
[2023-09-18 20:53] LABS: Glucose, Whole Blood 97 mg/dL (60-115)
[2023-09-18] MEDS: ondansetron HCL 4 MG/2 ML VIAL IVPUSH (23:35)
[2023-09-19] MEDS: Prochlorperazine Edisylate 10 MG/2 ML VIAL 5 MG IVPUSH ×2 (02:25→20:05)
[2023-09-19] MEDS: 0.9 % Sodium Chloride Flush 3 ML SYRINGE IVFLUSH ×4 (02:32→20:02)
[2023-09-19 03:28] VITALS: BP 136/73; PULSE 93; RESP 18; TEMP 36.9; O2SAT 98
[2023-09-19 06:00] VITALS: BMI 22.5
[2023-09-19] MEDS: Pantoprazole Sodium 40 MG/10 ML VIAL IVPUSH (06:14)
--- NOTE | 2023-09-19 07:01 | PM.EVENT ---
Event Note Date of Service: 09/19/23 Event Note: Patient complained of abdominal pain, nausea and vomiting overnight. Abdominal pelvis CT scan without contrast was obtained and showed possible showed esophagitis. He received treatment with Zofran, Phenergan and Protonix 40 mg IV q12h. Time Spent With Patient Time: Total time managing care of this patient today ____ minutes.
[2023-09-19 07:07] VITALS: BP 142/81; PULSE 110; RESP 18; TEMP 37.1; O2SAT 98
[2023-09-19 07:19] LABS: Glucose, Whole Blood 117 mg/dL (60-115)
[2023-09-19 07:33] LABS: MANUAL DIFF FLAG NO
[2023-09-19 07:56] LABS: Basophils Percent Auto 0.5 % (0-2); Eosinophils Absolute Auto 0.3 X10*3/uL (0.0-0.4); Hematocrit 25.1 % (42.0-52.0); Hemoglobin 8.5 g/dl (14.0-18.0); Imm Gran Abs Auto 0.04 X10*3/uL (0.00-0.03); Imm Gran Pct Auto 0.5 % (0.0-0.4); Lymphocytes Absolute Auto 1.1 X10*3/uL (1.2-4.9); Lymphocytes Percent Auto 13.3 % (20-40); Mean Corpuscular HGB Conc 33.9 g/dl (31.0-36.0); Mean Corpuscular Hemoglobin 30.1 pg (27.0-33.0); Mean Platelet Volume 9.9 fL (9.4-12.4); Monocytes Absolute Auto 0.5 X10*3/uL (0.1-1.2); Neutrophils Absolute Auto 6.4 x10*3/uL (2.0-8.3); Neutrophils Percent Auto 76.7 % (45-73); Platelet Count 204 X10*3/uL (160-400); Red Blood Count 2.82 X10*6/uL (4.60-5.80); Red Cell Distribution Width 17.3 % (11.0-16.0); White Blood Count 8.3 X10*3/uL (4.8-10.8)
[2023-09-19 08:10] LABS: Alanine Aminotransferase 20 U/L (0-40); Albumin Level 4.1 g/dL (3.5-5.0); Alkaline Phosphatase 126 U/L (39-117); Anion Gap 13 (12-20); Aspartate Amino Transferase 24 U/L (5-37); Bilirubin Total 0.5 mg/dL (0.0-1.0); Blood Urea Nitrogen 47 mg/dL (9-16); Carbon Dioxide 28 mmol/L (22-29); Chloride 101 mmol/L (96-108); Creatinine Clr Calc Pharmacy 49.5; Estimated Glomerular Filt Rate 45; Glucose Random 115 mg/dL (60-115); Magnesium 1.8 mg/dL (1.6-2.6); Phosphorus 3.4 mg/dL (2.7-4.5); Potassium 3.2 mmol/L (3.3-5.1); Sodium 139 mmol/L (135-145); Total Protein 8.9 g/dL (6.5-8.0)
[2023-09-19] MEDS: ondansetron HCL 4 MG/2 ML VIAL IVPUSH ×3 (09:43→23:48)
[2023-09-19] MEDS: Lidocaine 4 % Patch ADH..PATCH 2 PATCH TRANSDERMA (09:46)
[2023-09-19] MEDS: amLODIPine Besylate 10 MG TABLET PO (09:49)
[2023-09-19] MEDS: OLANZapine 5 MG TABLET PO ×2 (09:49→20:02)
[2023-09-19] MEDS: Tamsulosin HCL 0.4 MG CAPSULE PO (09:49)
[2023-09-19 10:51] VITALS: BP 144/86; PULSE 111; RESP 18; TEMP 36.9; O2SAT 98
[2023-09-19 11:13] LABS: Glucose, Whole Blood 96 mg/dL (60-115)
[2023-09-19] MEDS: Enoxaparin Sodium 40 MG/0.4 ML SYRINGE SUBCUT (11:25)
--- NOTE | 2023-09-19 12:03 | HO.PM.IMPN ---
Subjective Subjective Date of Service: 09/19/23 Interval History: seen in f/u for prolonged hospitalization d/t resp failure, shock, renal failure needing HD, aspriation pna, gram negative sepsis intubated second time. overal has been making progresse, experience abdominal discomfort and vomitting last night, Ct no acute finding. Physical Exam Vital Signs: Vital Signs: Last Vital Signs Temp 98.4 F 09/19/23 10:51 Pulse 111 H 09/19/23 10:51 Resp 18 09/19/23 10:51 BP 144/86 H 09/19/23 10:51 Pulse Ox 98 09/19/23 10:51 O2 Del Method Room Air 09/19/23 10:51 O2 Flow Rate 40 09/11/23 20:00 FiO2 21 09/15/23 12:00 BMI result Body Mass Index 22.5 .alert, oriented to self place, no distress cv RRR S1S2, lungs cta abd S, NT, ND, +BS Ext: no edema, Neuro: NF Const: Other: Constitutional : Awake, interactive, not in distress Neck : Normal inspection, Supple, dialysis catheter in place Cardiovascular : RRR, no JVP, no lower extremity edema Respiratory : good bilateral air entry, no crackles, wheezes or rhonchi Gastrointestinal: soft, lax, Normal bowel sounds, Non tender Skin : Warm, Dry, Bess in place Neurological : Alert & oriented to time and place, No focal deficit Objective Data Active Medications Acetaminophen (Acetaminophen 325 Mg Tablet) 975 mg PO Q6H PRN PRN Reason: pain, headache or fever Last Admin: 09/17/23 23:33 Dose: 975 mg Documented By: PARUL Amlodipine Besylate (Amlodipine Besylate 10 Mg Tablet) 10 mg PO DAILY [facility]; Protocol Last Admin: 09/19/23 09:49 Dose: 10 mg Documented By: DIMAS Diphenhydramine HCl (Diphenhydramine Hcl 25 Mg Capsule) 50 mg PO Q6H PRN PRN Reason: Itching or insomnia Last Admin: 09/17/23 22:49 Dose: 50 mg Documented By: PARUL Enoxaparin Sodium (Enoxaparin Sodium 40 Mg/0.4 Ml Syringe) 40 mg SUBCUT Q24H [facility] Last Admin: 09/19/23 11:25 Dose: 40 mg Documented By: DIMAS Glucose (Glucose Gel 15 Gm Gel..Gram.) 15 gm PO Q15M PRN; Protocol PRN Reason: per Hypoglycemia Standing Ord. Dextrose (D10) 250 mls @ 750 mls/hr IV Q15M PRN; Protocol PRN Reason: per Hypoglycemia Standing Ord. Dextrose/Lactated Ringer's (D5lr) 1,000 mls @ 100 mls/hr IVCONT .Q10H [facility] Lidocaine (Lidocaine 4 % Patch Adh..Patch) 2 patch TRANSDERMA DAILY [facility]; Protocol Last Admin: 09/19/23 09:46 Dose: 2 patch Documented By: DIMAS Mirtazapine (Mirtazapine 15 Mg Tablet) 15 mg PO BEDTIME [facility] Last Admin: 09/18/23 20:37 Dose: 15 mg Documented By: CECILIA Nystatin (Nystatin Cream 15 Gm Tube) 1 appl TOPICAL BID [facility]; Protocol Last Admin: 09/19/23 11:25 Dose: Not Given Documented By: DIMAS Non-Admin Reason: Med Not Available Olanzapine (Olanzapine 5 Mg Tablet) 5 mg PO BID [facility] Last Admin: 09/19/23 09:49 Dose: 5 mg Documented By: DIMAS Olanzapine (Olanzapine 2.5 Mg Tablet) 2.5 mg PO DAILY PRN PRN Reason: anxiety/agitation Ondansetron HCl (Ondansetron Hcl 4 Mg/2 Ml Vial) 4 mg IVPUSH Q4H PRN PRN Reason: Nausea and Vomiting Last Admin: 09/19/23 09:43 Dose: 4 mg Documented By: DIMAS Pantoprazole Sodium (Pantoprazole Sodium 40 Mg/10 Ml Vial) 40 mg IVPUSH DAILY@0630 [facility] Prochlorperazine Edisylate (Prochlorperazine Edisylate 10 Mg/2 Ml Vial) 5 mg IVPUSH Q4H PRN PRN Reason: Nausea and Vomiting Last Admin: 09/19/23 02:25 Dose: 5 mg Documented By: CECILIA Sodium Chloride (0.9 % Sodium Chloride Flush 3 Ml Syringe) 3 ml IVFLUSH QSHIFT [facility] Last Admin: 09/19/23 09:39 Dose: 3 ml Documented By: DIMAS Tamsulosin HCl (Tamsulosin Hcl 0.4 Mg Capsule) 0.4 mg PO DAILY [facility] Last Admin: 09/19/23 09:49 Dose: 0.4 mg Documented By: DIMAS Zolpidem Tartrate (Zolpidem Tartrate 5 Mg Tablet) 5 mg PO BEDTIME [facility] Last Admin: 09/18/23 20:37 Dose: 5 mg Documented By: CECILIA Labs 09/19/23 06:42 09/19/23 06:42 Labs: Laboratory Results - last 24 hr 09/18/23 09/18/23 09/18/23 12:14 17:45 20:43 MCV MCH MCHC RDW Plt Count MPV Immature Gran % (Auto) Neut % (Auto) Lymph % (Auto) [place] % (Auto) Eos % (Auto) Baso % (Auto) Lymph # (Auto) [place] # (Auto) Eos # (Auto) Baso # (Auto) Abs Immat Gran (auto) Absolute Neuts (auto) Absolute Nucleated RBC Nucleated RBC % (auto) Anion Gap Estim Creat Clear Calc Estimated GFR POC Glucose 110 97 Random Glucose Calcium Phosphorus Magnesium Total Bilirubin AST ALT Alkaline Phosphatase Total Protein Albumin Urine Color Yellow Urine Appearance Clear Urine pH 6.5 Ur Specific [place] <= 1.005 Urine Protein 30 (1+) H Urine Glucose (UA) Negative Urine Ketones Negative Urine Blood Small (1+) H Urine Nitrite Negative Ur Leukocyte Esterase Trace H Urine RBC 0-2 Urine WBC 0-5 Ur Squamous Epith Cells 0-2 Urine Bacteria None Seen Hyaline Casts 0-2 09/19/23 09/19/23 09/19/23 06:42 07:13 11:09 MCV 89.0 MCH 30.1 MCHC 33.9 RDW 17.3 H Plt Count 204 MPV 9.9 Immature Gran % (Auto) 0.5 H Neut % (Auto) 76.7 H Lymph % (Auto) 13.3 L [place] % (Auto) 6.0 Eos % (Auto) 3.0 Baso % (Auto) 0.5 Lymph # (Auto) 1.1 L [place] # (Auto) 0.5 Eos # (Auto) 0.3 Baso # (Auto) 0.0 Abs Immat Gran (auto) 0.04 H Absolute Neuts (auto) 6.4 Absolute Nucleated RBC 0.000 Nucleated RBC % (auto) 0.0 Anion Gap 13 Estim Creat Clear Calc 49.5 Estimated GFR 45 POC Glucose 117 H 96 Random Glucose 115 Calcium 10.0 D Phosphorus 3.4 Magnesium 1.8 Total Bilirubin 0.5 AST 24 ALT 20 Alkaline Phosphatase 126 H Total Protein 8.9 H Albumin 4.1 Urine Color Urine Appearance Urine pH Ur Specific [place] Urine Protein Urine Glucose (UA) Urine Ketones Urine Blood Urine Nitrite Ur Leukocyte Esterase Urine RBC Urine WBC Ur Squamous Epith Cells Urine Bacteria Hyaline Casts Assessment and Plan (1) Anoxic brain injury: Status: Acute (2) Acute renal failure: Status: Acute Plan 53-make admitted through the ICU on 08/18, His past medical history includes depression, GERD, dysphagia, BPH, bipolar disorder, anemia, alcohol and opiate abuse, anxiety, GI bleed who was found obtunded and admitted with rhabdomyolysis, acute kidney injury and shock. Additionally, he developed aspiration pneumonia and was found to have gram-negative fitz sepsis, gastrointestinal bleed, and acute blood anemia. Toxic Metabolic encephalopathy--d/t anoxic brain (noted on MRI, slowing on EEG, and renal failure, rhabdomylsosi. Overall is making good recovery. -continue goal directed treatment Acute hypoxic resp failure d/t Overdose and sepsis 2/2 aspiration PNA, required intubation, doing well on room air. completed 10 days antibiotics, wbc normal, no fever. 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 no off, dialysis catheter removed Metabolic acidosis--multifactorial, resolved. Hx drug abuse, no seeking behaviors, addiction med to assess prior to dc Anemia/gib likely upper gib from esophageal source, 1 unit or RBC on 09/12, h/h stable. Continue IV PPI abd pain n/v, CT showed no acute finding, continue PPI as above, GI consult, IVF while npo Lovenox for DVT prophylaxis Need for inpatient: recoverying from complicated medical course as above Quality Stroke Does the patient have a stroke diagnosis?: No VTE Prior VTE?: No VTE Risk Level:: Medical - low VTE Device Contraindication: N/A - Device Ordered VTE Drug Contraindication: N/A - Med Ordered
[2023-09-19 12:54] LABS: Appearance Urine Cloudy; Color Urine Yellow; Glucose Urine UA 100 mg/dL (Negative); Leukocyte Esterase Urine Trace (Negative); Nitrite Urine Negative (Negative); PH 6.5 (5.0-9.0); Specific Gravity - Urine 1.015 (1.005-1.025); UMIC TRIGGER UA YES; Urine Blood Small (1+) (Negative); Urine Ketones Negative (Negative); Urine Protein 100 (2+) mg/dL (Neg-Trace)
[2023-09-19 13:04] LABS: Bacteria Urine None Seen (None Seen); Hyaline Casts Urine 0-2 /LPF (0-2); RBC Urine 0-2 /HPF (0-2); Squamous Epithelial Cell Urine 0-2 /HPF (0-2); WBC Urine 0-5 /HPF (0-5)
[2023-09-19] MEDS: KCl 20 mEq in 5 % Dex/Lact Rin 20 MEQ/1,000 ML IV.SOLN 100 MEQ IVCONT ×2 (13:29→23:45)
--- NOTE | 2023-09-19 14:35 | P.CNGI_ITS ---
History of Present Illness Data of Consult Service Date: 09/19/23 Requesting physician: Mehdi Garcia Primary Care Provider: Patrick Ly MD HPI Reason for consult: gi bleeding, anemia, esophagitis 53 YM admitted to [facility] ICU on August 18 after he was found unresponsive at home with pinpoint pupils and apnea, requiring intubation by EMS. Pt was diagnosed with rhabdomyolysis, acute kidney injury (NAOMI), and shock and was started on levophed. Hospital course was complicated by aspiration pneumonia, gram-negative fitz sepsis, gastrointestinal bleeding and anemia. The patient remained intubated until September 05 and was transferred to the medical floor on September 06. Pt required temporary HD due to renal failure, (suspected acute tubular necrosis (ATN) associated with uremia. Pt is known to me from past evaluation in the GI clinic and his history includes depression, GERD, dysphagia, BPH, bipolar disorder, anemia, alcohol and opiate abuse, anxiety, GI bleed, achalasia status post heller myotomy and balloon dilations. He is currently receiving nutrition through a feeding tube. Laboratory results show anemia, reactive leukocytosis, and hypercalcemia of unclear cause. H He is experiencing confusion due to multifactorial metabolic encephalopathy, including substance abuse, ICU related encephalopathy, and possible uremia- related factors. GI is consulted due to nausea, vomiting and abdominal pain Vomitus was dark/black in color Pt complains of nausea, vomiting and intermittent periumblical pain since yesterday. Abdominal pain gets worse after eating. Denies any vomiting today and continues to have nausea. Patient also complains of constipation - last BM was 3 days ago. He has longstanding dysphagia related to achalasia and denies any change in his symptoms Anemia/gib likely upper gib from esophageal source, 1 unit or RBC on 09/12, h/h stable. Continue IV PPI Labs showed H & H of 8.5 & 25.1 (stable, H & H was 8.1 & 23.9 on 09/18/23) 09/19/[address] SCAN SHOWED: 1. Mild thickening of the visualized distal esophagus. This could be due to esophagitis. 2. Otherwise, no acute abnormality within the abdomen or pelvis. PAST GI HISTORY BY REVIEW OF MEDICAL RECORDS: Pt had a negative colonoscopy by Dr Hooker in 2011 Pt was last seen in the GI clinic in 11/2021 and has missed several FU appts since then: 51 YM with GERD, IBS, achalasia. S/P Lap Heller Myotomy @ [facility]-09/2015, followed by Dr. Luis Angel Richey- with persistent symptoms of dysphagia. Pt was advised to? undergo an esophagectomy and he decided against the surgery. Repeat EGD with? dilation was performed on 10/01/18 per patient's request and showed a dilated,? tortuous and aperistaltic esophagus due to achalasia - empiric dilation upto 20 mm (60 F) was performed with a CRE balloon. No fundal wrap was seen on? retroflexed examination of the stomach. Patient was seen in the past by Dr.? Correa @ [facility].(He was seen previously for Achalasia.) He was told he needed to? have another EGD. If the LES area is patent, the problem may be the lack of? esophageal motility. I explained to Mr. Taveras his dysphagia symptoms are?related to achalasia/ lack of motility and repeated dilations will not be? helpful in relieving his symptoms. Repeat Barium Swallow on 07/08/19 showed? prominent cricoesophageal sphincter resulting in moderate narrowing in the? cervical esophagus/pharyngeal junction. Secondary and tertiary peristalsis?present in the distal esophagus. 2 areas of barium tablet holdup -? significant holdup at the GE junction and slightly less holdup at the?pharynx. No laryngeal penetration or aspiration seen. 08/02/19 repeat EGD with esophageal balloon dilation was performed without improvement in dysphagia? symptoms. Patient is interested in discussing surgical options with Dr.? Richey. He is reluctant to undergo esophagectomy due to concern for complication? and would like to discuss if there are less invasive surgical options available? to him. 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 GERD (gastroesophageal reflux disease) Anxiety Family History Family History Father HTN (hypertension) Diabetes Mother HTN (hypertension) Stroke Alzheimer disease Heart disease Family history: reviewed and not pertinent Surgical History Surgical History History of colonoscopy History of cystoscopy H/O umbilical hernia repair Social History Social History Household Members: Unknown / Unable to assess Housing: Unknown / Unable to assess Do you presently have visiting nurse or other home services: Yes Alcohol intake: former Comment: bilateral wrist restraints for airway safety Patient Tobacco Use Status: Tobacco use Unknown Tobacco use type: Cigarette Cigarette Packs Per Day: 12 Cigarettes Per Day: 240.0 Years Smoked: 12 e-Cigarette/Vaping Use: Never Used Second Hand Smoke Exposure: Yes Substance Use Type: Unknown Advance Directives Date on File: 02/14/20 service: No Current occupational status: unemployed and disabled Sexual orientation: Straight/Heterosexual Meds Allergies Allergy/AdvReac Type Severity Reaction Status Date / Time trazodone [TRAZODONE] Allergy Severe FACIAL Verified 08/19/23 02:58 SWELLING, swelling cat dander [CATS] Allergy Intermediate FACIAL Verified 08/19/23 02:58 ITCHING doxepin [DOXEPIN] Allergy Intermediate WEIGHT Verified 08/19/23 02:58 GAIN/LEG SWELLING Iodinated Contrast Media Allergy Intermediate ITCHING Verified 08/19/23 02:58 [IV DYE, IODINE CONTAINING CONTRAST ] nitroglycerin [NITROGLYCERIN] Allergy Unknown UNKNOWN Verified 08/19/23 02:58 tramadol [TRAMADOL] Allergy Unknown UNKNOWN, Verified 08/19/23 02:58 dry mouth ibuprofen [From MOTRIN] AdvReac Intermediate GI UPSET Verified 08/19/23 02:58 quetiapine [From SEROQUEL] AdvReac Intermediate FACIAL Verified 08/19/23 02:58 SWELLING aspirin [ASPIRIN] AdvReac Mild Stomach Verified 08/19/23 02:58 Upset Ibuprofen Allergy Unknown stomach Uncoded 08/19/23 02:58 ache IV contrast Allergy Unknown Unknown Uncoded 08/03/23 20:27 Motrin Allergy Unknown stomach Uncoded 08/03/23 20:27 pain Active Medications: Current Medications Acetaminophen (Acetaminophen 325 Mg Tablet) 975 mg PO Q6H PRN PRN Reason: pain, headache or fever Last Admin: 09/17/23 23:33 Dose: 975 mg Amlodipine Besylate (Amlodipine Besylate 10 Mg Tablet) 10 mg PO DAILY [facility]; Protocol Last Admin: 09/19/23 09:49 Dose: 10 mg Diphenhydramine HCl (Diphenhydramine Hcl 25 Mg Capsule) 50 mg PO Q6H PRN PRN Reason: Itching or insomnia Last Admin: 09/17/23 22:49 Dose: 50 mg Enoxaparin Sodium (Enoxaparin Sodium 40 Mg/0.4 Ml Syringe) 40 mg SUBCUT Q24H [facility] Last Admin: 09/19/23 11:25 Dose: 40 mg Glucose (Glucose Gel 15 Gm Gel..Gram.) 15 gm PO Q15M PRN; Protocol PRN Reason: per Hypoglycemia Standing Ord. Dextrose (D10) 250 mls @ 750 mls/hr IV Q15M PRN; Protocol PRN Reason: per Hypoglycemia Standing Ord. Potassium Cl/Dextrose/Lact Ringer's (Kcl 20 Meq In 5 % Dex/Lact Rin) 20 meq in 1,000 mls @ 100 mls/hr IVCONT .Q10H [facility] Last Admin: 09/19/23 13:29 Dose: 100 mls/hr Lidocaine (Lidocaine 4 % Patch Adh..Patch) 2 patch TRANSDERMA DAILY [facility]; Protocol Last Admin: 09/19/23 09:46 Dose: 2 patch Mirtazapine (Mirtazapine 15 Mg Tablet) 15 mg PO BEDTIME [facility] Last Admin: 09/18/23 20:37 Dose: 15 mg Nystatin (Nystatin Cream 15 Gm Tube) 1 appl TOPICAL BID [facility]; Protocol Last Admin: 09/19/23 11:25 Dose: Not Given Olanzapine (Olanzapine 5 Mg Tablet) 5 mg PO BID [facility] Last Admin: 09/19/23 09:49 Dose: 5 mg Olanzapine (Olanzapine 2.5 Mg Tablet) 2.5 mg PO DAILY PRN PRN Reason: anxiety/agitation Ondansetron HCl (Ondansetron Hcl 4 Mg/2 Ml Vial) 4 mg IVPUSH Q4H PRN PRN Reason: Nausea and Vomiting Last Admin: 09/19/23 09:43 Dose: 4 mg Pantoprazole Sodium (Pantoprazole Sodium 40 Mg/10 Ml Vial) 40 mg IVPUSH DAILY@0630 [facility] Prochlorperazine Edisylate (Prochlorperazine Edisylate 10 Mg/2 Ml Vial) 5 mg IVPUSH Q4H PRN PRN Reason: Nausea and Vomiting Last Admin: 09/19/23 02:25 Dose: 5 mg Sodium Chloride (0.9 % Sodium Chloride Flush 3 Ml Syringe) 3 ml IVFLUSH QSHIFT [facility] Last Admin: 09/19/23 09:39 Dose: 3 ml Tamsulosin HCl (Tamsulosin Hcl 0.4 Mg Capsule) 0.4 mg PO DAILY [facility] Last Admin: 09/19/23 09:49 Dose: 0.4 mg Zolpidem Tartrate (Zolpidem Tartrate 5 Mg Tablet) 5 mg PO BEDTIME [facility] Last Admin: 09/18/23 20:37 Dose: 5 mg Home Medications ?Medication ?Instructions ?Recorded ?Confirmed ?Last Taken ?Type albuterol sulfate 90 mcg/actuation 2 puff inhalation Q4-6H PRN 08/19/23 08/19/23 Unknown History aerosol inhaler (Ventolin HFA) Shortness Of Breath Or Wheezing capsaicin 0.025 % topical cream 1 appl topical TID 08/19/23 08/19/23 Unknown History cetirizine 10 mg tablet 10 mg PO DAILY 08/19/23 08/19/23 Unknown History cholecalciferol (vitamin D3) 25 25 mcg PO DAILY 08/19/23 08/19/23 Unknown History mcg (1,000 unit) capsule diphenhydramine HCl 25 mg tablet 25 mg PO Q6H PRN Itching 08/19/23 08/19/23 Unknown History (Sindy-Dryl) fluticasone propionate 50 1 - 2 spray intranasal DAILY 08/19/23 08/19/23 Unknown History mcg/actuation nasal spray,suspension loperamide 2 mg tablet 2 mg PO Q6H PRN Loose Stool 08/19/23 08/19/23 Unknown History (Anti-Diarrheal (loperamide)) metformin 500 mg tablet,extended 500 mg PO QPM 08/19/23 08/19/23 Unknown History release 24 hr mirtazapine 15 mg tablet 15 mg PO BEDTIME 08/19/23 08/19/23 Unknown History ondansetron 4 mg disintegrating 4 mg PO Q8H PRN nausea/vomiting 08/19/23 08/19/23 Unknown History tablet polyethylene glycol 3350 17 17 g PO BID PRN constipation 08/19/23 08/19/23 Unknown History gram/dose oral powder selenium sulfide 2.5 % lotion 1 appl topical 3XW PRN DANDRUFF 08/19/23 08/19/23 Unknown History sennosides 8.6 mg tablet (senna) 8.6 mg PO BEDTIME PRN Constipation 08/19/23 08/19/23 Unknown History Physical Exam 2 Vital Signs: Vital Signs: Last Vital Signs Temp 98.4 F 09/19/23 10:51 Pulse 111 H 09/19/23 10:51 Resp 18 09/19/23 10:51 BP 144/86 H 09/19/23 10:51 Pulse Ox 98 09/19/23 10:51 O2 Del Method Room Air 09/19/23 10:51 O2 Flow Rate 40 09/11/23 20:00 FiO2 21 09/15/23 12:00 BMI result Body Mass Index 22.5 .alert, oriented to self place, no distr ess cv RRR S1S2, lungs cta abd S, NT, ND, +BS Ext: no edema, Neuro: NF Const: Other: Constitutional : Awake, interactive, not in distress Neck : Normal inspection, Supple, dialysis catheter in place Cardiovascular : RRR, no JVP, no lower extremity edema Respiratory : good bilateral air entry, no crackles, wheezes or rhonchi Gastrointestinal: soft, lax, Normal bowel sounds, Non tender Skin : Warm, Dry, Bess in place Neurological : Alert & oriented to time and place, No focal deficit Results Labs 09/21/23 06:01 09/21/23 06:01 Labs: Short CBC 09/19/23 Range/Units 06:42 WBC 8.3 (4.8-10.8) X10*3/uL Hgb 8.5 L (14.0-18.0) g/dl Hct 25.1 L (42.0-52.0) % Plt Count 204 (160-400) X10*3/uL BMP 09/19/23 06:42 Sodium 139 Potassium 3.2 L Chloride 101 Carbon Dioxide 28 BUN 47 H Creatinine 1.60 H Calcium 10.0 D Liver Function 09/19/23 Range/Units 06:42 Total Bilirubin 0.5 (0.0-1.0) mg/dL AST 24 (5-37) U/L ALT 20 (0-40) U/L Alkaline Phosphatase 126 H (39-117) U/L Albumin 4.1 (3.5-5.0) g/dL Urine 09/18/23 09/19/23 Range/Units 17:45 12:22 Urine Color Yellow Yellow Urine Appearance Clear Cloudy Urine pH 6.5 6.5 (5.0-9.0) Ur Specific [place] <= 1.005 1.015 (1.005-1.025) Urine Protein 30 (1+) H 100 (2+) H (Neg-Trace) mg/dL Urine Glucose (UA) Negative 100 H (Negative) mg/dL Microbiology Microbiology Results: Microbiology 09/08/23 03:22 Blood - Venous Blood Culture - Final No growth after 5 days. 09/08/23 03:22 Blood - Venous Blood Culture - Final No growth after 5 days. 08/20/23 16:53 Lung - Suctioned Gram Stain - Final 08/20/23 16:53 Lung - Suctioned Sputum Culture - Final Stefanie albicans Stefanie dubliniensis 08/19/23 02:59 Blood - Venous Blood Culture - Final Propionibacterium acnes 08/19/23 02:59 Blood - Venous Blood Culture - Final Propionibacterium acnes 08/19/23 Unknown Urine Catheterized - Bess Catheter Urine Culture - Final No growth. Assessment and Plan (1) GERD (gastroesophageal reflux disease): Status: Acute (2) Chronic constipation: Status: Acute (3) Dysphagia: Status: Acute (4) Nausea & vomiting: Status: Inactive (5) UGI bleed: Status: Acute Plan 53 YM with depression, GERD, dysphagia, BPH, bipolar disorder, anemia, alcohol and opiate abuse, anxiety, GI bleed, achalasia status post heller myotomy and balloon dilations. GI is consulted due to nausea, vomiting and abdominal pain with dark vomitus Patient also complains of constipation - last BM was 3 days ago. Pt was transfused 1 unit or RBC on 09/12, He has longstanding dysphagia related to achalasia and denies any change in his symptoms Abdominal pain, nausea and vomting likely due to stress gastritis, esophagitis or PUD Labs showed H & H of 8.5 & 25.1 (stable, H & H was 8.1 & 23.9 on 09/18/23) RECOMMENDATIONS: 1. Follow CBC daily 2. IV PPI twice a day for 24 hrs then switch to oral PPI twice daily x 2 weeks and then once a day 3. If symptoms persist, I will schedule an EGD on 09/21/23. 4. Order placed for Miralax once a day for constipation ADDENDUM: EGD rescheduled for 09/22/23 Procedures Date of Service Date of Service: 09/22/23
[2023-09-19 15:01] VITALS: BP 157/74; PULSE 87; RESP 18; TEMP 36.6; O2SAT 97
[2023-09-19] MEDS: Acetaminophen 325 MG TABLET 975 MG PO ×2 (15:46→23:48)
[2023-09-19] MEDS: polyethylene glycoL 3350 17 GM POWD.PACK PO (15:46)
[2023-09-19 17:41] LABS: Glucose, Whole Blood 125 mg/dL (60-115)
[2023-09-19 20:00] VITALS: BP 157/85; PULSE 89; RESP 22; TEMP 37.4; O2SAT 99
[2023-09-19] MEDS: Zolpidem Tartrate 5 MG TABLET PO (20:02)
[2023-09-19] MEDS: Mirtazapine 15 MG TABLET PO (20:02)
[2023-09-19 23:46] VITALS: BP 165/80; PULSE 97; RESP 20; TEMP 37.2; O2SAT 98
[2023-09-19] MEDS: Nystatin Cream 15 GM TUBE 1 APPL TOPICAL (23:48)
[2023-09-20] VITALS (9 sets, daily range): BP systolic 145–190; BP diastolic 74–92; PULSE 68–108; RESP 18–20; TEMP 36.3–37.4; O2SAT 99–100; BMI 21.7
[2023-09-20] MEDS: Prochlorperazine Edisylate 10 MG/2 ML VIAL 5 MG IVPUSH (03:30)
[2023-09-20] MEDS: OLANZapine 2.5 MG TABLET PO ×2 (03:30→23:46)
[2023-09-20] MEDS: Labetalol HCL 100 MG/20 ML VIAL 10 MG IVPUSH (04:18)
[2023-09-20] MEDS: Pantoprazole Sodium 40 MG/10 ML VIAL IVPUSH ×2 (05:47→16:47)
[2023-09-20 07:00] LABS: MANUAL DIFF FLAG NO
[2023-09-20 07:20] LABS: Basophils Percent Auto 0.6 % (0-2); Eosinophils Absolute Auto 0.8 X10*3/uL (0.0-0.4); Eosinophils Percent Auto 10.7 % (0-4); Hematocrit 22.6 % (42.0-52.0); Hemoglobin 7.6 g/dl (14.0-18.0); Imm Gran Abs Auto 0.02 X10*3/uL (0.00-0.03); Imm Gran Pct Auto 0.3 % (0.0-0.4); Lymphocytes Absolute Auto 1.6 X10*3/uL (1.2-4.9); Lymphocytes Percent Auto 21.9 % (20-40); Mean Corpuscular HGB Conc 33.6 g/dl (31.0-36.0); Mean Corpuscular Volume 89.3 fL (80.0-98.0); Mean Platelet Volume 9.1 fL (9.4-12.4); Monocytes Absolute Auto 0.6 X10*3/uL (0.1-1.2); Monocytes Percent Auto 8.9 % (2-11); Neutrophils Absolute Auto 4.1 x10*3/uL (2.0-8.3); Neutrophils Percent Auto 57.6 % (45-73); Platelet Count 171 X10*3/uL (160-400); Red Blood Count 2.53 X10*6/uL (4.60-5.80); Red Cell Distribution Width 17.5 % (11.0-16.0); White Blood Count 7.1 X10*3/uL (4.8-10.8)
[2023-09-20 07:28] LABS: Alanine Aminotransferase 17 U/L (0-40); Albumin Level 3.6 g/dL (3.5-5.0); Alkaline Phosphatase 105 U/L (39-117); Anion Gap 12 (12-20); Aspartate Amino Transferase 21 U/L (5-37); Bilirubin Total 0.5 mg/dL (0.0-1.0); Blood Urea Nitrogen 33 mg/dL (9-16); Calcium 9.5 mg/dL (8.4-10.2); Carbon Dioxide 27 mmol/L (22-29); Chloride 106 mmol/L (96-108); Creatinine Clr Calc Pharmacy 52.3; Estimated Glomerular Filt Rate 50; Glucose Random 129 mg/dL (60-115); Magnesium 1.6 mg/dL (1.6-2.6); Phosphorus 2.9 mg/dL (2.7-4.5); Potassium 3.3 mmol/L (3.3-5.1); Sodium 142 mmol/L (135-145); Total Protein 7.6 g/dL (6.5-8.0)
--- NOTE | 2023-09-20 09:23 | HO.PM.IMPN ---
Subjective Subjective Date of Service: 09/20/23 Interval History: seen in f/u for prolonged hospitalization d/t drug overdose related acute resp failure needing inutbation, shock leading ATN/renal failure needing temp HD, aspriation pna, gram negative sepsis, reintubation for aspriation pneumonia overal has been making progress, continue to have nausea, no abdominal pain, CT of abdomen no acute finding.. tolerating some diet. Physical Exam Vital Signs: Vital Signs: Last Vital Signs Temp 99.3 F 09/20/23 07:42 Pulse 68 09/20/23 07:42 Resp 18 09/20/23 07:42 BP 178/90 H 09/20/23 07:42 Pulse Ox 99 09/20/23 07:42 O2 Del Method Room Air 09/20/23 07:42 O2 Flow Rate 40 09/11/23 20:00 FiO2 21 09/15/23 12:00 BMI result Body Mass Index 21.7 .alert, oriented to self place, no distress cv RRR S1S2, lungs cta abd S, NT, ND, +BS Ext: no edema, Neuro: NF Const: Other: Constitutional : Awake, interactive, not in distress Neck : Normal inspection, Supple, dialysis catheter in place Cardiovascular : RRR, no JVP, no lower extremity edema Respiratory : good bilateral air entry, no crackles, wheezes or rhonchi Gastrointestinal: soft, lax, Normal bowel sounds, Non tender Skin : Warm, Dry, Bess in place Neurological : Alert & oriented to time and place, No focal deficit Objective Data Active Medications Acetaminophen (Acetaminophen 325 Mg Tablet) 975 mg PO Q6H PRN PRN Reason: pain, headache or fever Last Admin: 09/19/23 23:48 Dose: 975 mg Documented By: CECILIA Amlodipine Besylate (Amlodipine Besylate 10 Mg Tablet) 10 mg PO DAILY [facility]; Protocol Last Admin: 09/19/23 09:49 Dose: 10 mg Documented By: DIMAS Diphenhydramine HCl (Diphenhydramine Hcl 25 Mg Capsule) 50 mg PO Q6H PRN PRN Reason: Itching or insomnia Last Admin: 09/17/23 22:49 Dose: 50 mg Documented By: PARUL Enoxaparin Sodium (Enoxaparin Sodium 40 Mg/0.4 Ml Syringe) 40 mg SUBCUT Q24H [facility] Last Admin: 09/19/23 11:25 Dose: 40 mg Documented By: DIMAS Glucose (Glucose Gel 15 Gm Gel..Gram.) 15 gm PO Q15M PRN; Protocol PRN Reason: per Hypoglycemia Standing Ord. Dextrose (D10) 250 mls @ 750 mls/hr IV Q15M PRN; Protocol PRN Reason: per Hypoglycemia Standing Ord. Potassium Cl/Dextrose/Lact Ringer's (Kcl 20 Meq In 5 % Dex/Lact Rin) 20 meq in 1,000 mls @ 100 mls/hr IVCONT .Q10H [facility] Last Admin: 09/19/23 23:45 Dose: 100 mls/hr Documented By: CECILIA Lidocaine (Lidocaine 4 % Patch Adh..Patch) 2 patch TRANSDERMA DAILY [facility]; Protocol Last Admin: 09/19/23 09:46 Dose: 2 patch Documented By: DIMAS Mirtazapine (Mirtazapine 15 Mg Tablet) 15 mg PO BEDTIME [facility] Last Admin: 09/19/23 20:02 Dose: 15 mg Documented By: CECILIA Nystatin (Nystatin Cream 15 Gm Tube) 1 appl TOPICAL BID [facility]; Protocol Last Admin: 09/19/23 23:48 Dose: 1 appl Documented By: CECILIA Comments: perineum Olanzapine (Olanzapine 5 Mg Tablet) 5 mg PO BID [facility] Last Admin: 09/19/23 20:02 Dose: 5 mg Documented By: CECILIA Olanzapine (Olanzapine 2.5 Mg Tablet) 2.5 mg PO DAILY PRN PRN Reason: anxiety/agitation Last Admin: 09/20/23 03:30 Dose: 2.5 mg Documented By: CECILIA Ondansetron HCl (Ondansetron Hcl 4 Mg/2 Ml Vial) 4 mg IVPUSH Q4H PRN PRN Reason: Nausea and Vomiting Last Admin: 09/19/23 23:48 Dose: 4 mg Documented By: CECILIA Pantoprazole Sodium (Pantoprazole Sodium 40 Mg/10 Ml Vial) 40 mg IVPUSH BID@0630,1630 [facility] Polyethylene Glycol (Polyethylene Glycol 3350 17 Gm Powd.Pack) 17 gm PO DAILY [facility] Last Admin: 09/19/23 15:46 Dose: 17 gm Documented By: DIMAS Prochlorperazine Edisylate (Prochlorperazine Edisylate 10 Mg/2 Ml Vial) 5 mg IVPUSH Q4H PRN PRN Reason: Nausea and Vomiting Last Admin: 09/20/23 03:30 Dose: 5 mg Documented By: CECILIA Comments: Nausea Sodium Chloride (0.9 % Sodium Chloride Flush 3 Ml Syringe) 3 ml IVFLUSH QSHIFT [facility] Last Admin: 09/19/23 20:02 Dose: 3 ml Documented By: CECILIA Tamsulosin HCl (Tamsulosin Hcl 0.4 Mg Capsule) 0.4 mg PO DAILY [facility] Last Admin: 09/19/23 09:49 Dose: 0.4 mg Documented By: DIMAS Zolpidem Tartrate (Zolpidem Tartrate 5 Mg Tablet) 5 mg PO BEDTIME [facility] Last Admin: 09/19/23 20:02 Dose: 5 mg Documented By: CECILIA Labs 09/20/23 06:50 09/20/23 06:50 Labs: Laboratory Results - last 24 hr 09/19/23 09/19/23 09/19/23 11:09 12:22 15:03 MCV MCH MCHC RDW Plt Count MPV Immature Gran % (Auto) Neut % (Auto) Lymph % (Auto) [place] % (Auto) Eos % (Auto) Baso % (Auto) Lymph # (Auto) [place] # (Auto) Eos # (Auto) Baso # (Auto) Abs Immat Gran (auto) Absolute Neuts (auto) Absolute Nucleated RBC Nucleated RBC % (auto) Anion Gap Estim Creat Clear Calc Estimated GFR POC Glucose 96 125 H Random Glucose Calcium Phosphorus Magnesium Total Bilirubin AST ALT Alkaline Phosphatase Total Protein Albumin Urine Color Yellow Urine Appearance Cloudy Urine pH 6.5 Ur Specific [place] 1.015 Urine Protein 100 (2+) H Urine Glucose (UA) 100 H Urine Ketones Negative Urine Blood Small (1+) H Urine Nitrite Negative Ur Leukocyte Esterase Trace H Urine RBC 0-2 Urine WBC 0-5 Ur Squamous Epith Cells 0-2 Urine Bacteria None Seen Hyaline Casts 0-2 Urine Yeast Present 09/20/23 06:50 MCV 89.3 MCH 30.0 MCHC 33.6 RDW 17.5 H Plt Count 171 MPV 9.1 L Immature Gran % (Auto) 0.3 Neut % (Auto) 57.6 Lymph % (Auto) 21.9 [place] % (Auto) 8.9 Eos % (Auto) 10.7 H Baso % (Auto) 0.6 Lymph # (Auto) 1.6 [place] # (Auto) 0.6 Eos # (Auto) 0.8 H Baso # (Auto) 0.0 Abs Immat Gran (auto) 0.02 Absolute Neuts (auto) 4.1 Absolute Nucleated RBC 0.000 Nucleated RBC % (auto) 0.0 Anion Gap 12 Estim Creat Clear Calc 52.3 Estimated GFR 50 POC Glucose Random Glucose 129 H Calcium 9.5 Phosphorus 2.9 Magnesium 1.6 Total Bilirubin 0.5 AST 21 ALT 17 Alkaline Phosphatase 105 Total Protein 7.6 Albumin 3.6 Urine Color Urine Appearance Urine pH Ur Specific [place] Urine Protein Urine Glucose (UA) Urine Ketones Urine Blood Urine Nitrite Ur Leukocyte Esterase Urine RBC Urine WBC Ur Squamous Epith Cells Urine Bacteria Hyaline Casts Urine Yeast Assessment and Plan (1) Anoxic brain injury: Status: Acute (2) Acute renal failure: Status: Acute Plan 55-make admitted through the ICU on 08/18, His past medical history includes depression, GERD, dysphagia, BPH, bipolar disorder, anemia, alcohol and opiate abuse, anxiety, GI bleed who was found obtunded and admitted with rhabdomyolysis, acute kidney injury and shock. Additionally, he developed aspiration pneumonia and was found to have gram-negative fitz sepsis, gastrointestinal bleed, and acute blood anemia. Toxic Metabolic encephalopathy--d/t anoxic brain (noted on MRI, slowing on EEG)., and renal failure, rhabdomylsosi. Overall is making good recovery. -continue goal directed treatment Acute hypoxic resp failure d/t Overdose and sepsis 2/2 aspiration PNA, required intubation, doing well on room air. completed 10 days antibiotics, wbc normal, no fever. 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 now off, dialysis catheter removed Metabolic acidosis--multifactorial, resolved. HTN--BP on high side, continue Norvasc 10 mg daily, add metoprolol 25 mg bid Hx drug abuse, no seeking behaviors, addiction med to assess prior to dc Anemia/gib likely upper gib from gastric and esophageal iriatation, s/p 1 unit or RBC on 09/12, h/h stable. Continue IV PPI bid, at DC change to twice daily x 2 weeks, then once daily per GI recommendation abd pain n/v, CT showed no acute finding, PPI as above Lovenox for DVT prophylaxis Need for inpatient: recoverying from complicated medical course as above Quality Stroke Does the patient have a stroke diagnosis?: No VTE Prior VTE?: No VTE Risk Level:: Medical - low VTE Device Contraindication: N/A - Device Ordered VTE Drug Contraindication: N/A - Med Ordered
[2023-09-20] MEDS: KCl 20 mEq in 5 % Dex/Lact Rin 20 MEQ/1,000 ML IV.SOLN 100 MEQ IVCONT ×2 (09:49→22:20)
[2023-09-20] MEDS: 0.9 % Sodium Chloride Flush 3 ML SYRINGE IVFLUSH ×2 (09:50→16:47)
[2023-09-20] MEDS: OLANZapine 5 MG TABLET PO ×2 (09:50→20:18)
[2023-09-20] MEDS: amLODIPine Besylate 10 MG TABLET PO (09:50)
[2023-09-20] MEDS: Lidocaine 4 % Patch ADH..PATCH 2 PATCH TRANSDERMA (09:51)
[2023-09-20] MEDS: polyethylene glycoL 3350 17 GM POWD.PACK PO (09:51)
[2023-09-20] MEDS: Tamsulosin HCL 0.4 MG CAPSULE PO (09:51)
[2023-09-20] MEDS: Metoprolol Tartrate 25 MG TABLET PO ×2 (09:59→20:17)
[2023-09-20] MEDS: Nystatin Cream 15 GM TUBE 1 APPL TOPICAL ×2 (09:59→22:00)
[2023-09-20 10:05] LABS: Glucose, Whole Blood 107 mg/dL (60-115)
[2023-09-20] MEDS: Enoxaparin Sodium 40 MG/0.4 ML SYRINGE SUBCUT (10:05)
[2023-09-20] MEDS: Acetaminophen 325 MG TABLET 975 MG PO ×2 (15:22→22:58)
--- NOTE | 2023-09-20 18:07 | PM.EVENT ---
Event Note Date of Service: 09/20/23 Event Note: Patient with witnessed fall in room as he was being transferred from recliner to bed. Patient is a 2 assist and while being transferred suddenly lurched forward and fell, striking the right side of his face on the floor. Patient was seen and examined in his room where he was resting comfortably in his bed eating his dinner. Patient complains of moderate pain on right cheek, and mild pain on right side of his neck. No acute vision changes. Denies difficulty breathing, chewing, swallowing, or moving his neck. Upon physical examination, mild tenderness to palpation of right maxilla. No focal deficits noted. Mentation appears baseline. Neck supple with no reduced ROM noted. No facial abrasions or hematomas noted. Patient seen eating and swallowing without difficulty. Will get CT of head, face, and cervical spine. Time Spent With Patient Time: Total time managing care of this patient today ____ minutes.
--- NOTE | 2023-09-20 18:32 | PC.NURSE ---
fell of the bed to the floor to on the right side of his face /head , c/o headache 12/14. MD was notified , CT scan of the head ,neck and face ordered and done . Pt alert oriented , moves all extremities , no visible injury. Ice pack applied,
[2023-09-20] MEDS: diphenhydrAMINE HCL 25 MG CAPSULE 50 MG PO (18:51)
[2023-09-20] MEDS: Zolpidem Tartrate 5 MG TABLET PO (20:17)
[2023-09-20] MEDS: Mirtazapine 15 MG TABLET PO (20:17)
[2023-09-20 21:34] LABS: Glucose, Whole Blood 81 mg/dL (60-115)
[2023-09-21] VITALS (7 sets, daily range): BP systolic 138–170; BP diastolic 72–86; PULSE 73–110; RESP 16–20; TEMP 37.1–37.3; O2SAT 97–99
[2023-09-21] MEDS: 0.9 % Sodium Chloride Flush 3 ML SYRINGE IVFLUSH
[2023-09-21] MEDS: diphenhydrAMINE HCL 25 MG CAPSULE 50 MG PO (04:56)
[2023-09-21] MEDS: Pantoprazole Sodium 40 MG/10 ML VIAL IVPUSH ×2 (04:58→16:59)
[2023-09-21] MEDS: Acetaminophen 325 MG TABLET 975 MG PO (04:58)
[2023-09-21 06:19] LABS: MANUAL DIFF FLAG NO
[2023-09-21 06:29] LABS: Basophils Absolute Auto 0.1 X10*3/uL (0.0-0.2); Basophils Percent Auto 0.7 % (0-2); Eosinophils Absolute Auto 0.8 X10*3/uL (0.0-0.4); Eosinophils Percent Auto 10.6 % (0-4); Hemoglobin 7.9 g/dl (14.0-18.0); Imm Gran Abs Auto 0.02 X10*3/uL (0.00-0.03); Imm Gran Pct Auto 0.3 % (0.0-0.4); Lymphocytes Absolute Auto 1.6 X10*3/uL (1.2-4.9); Lymphocytes Percent Auto 21.9 % (20-40); Mean Corpuscular HGB Conc 32.9 g/dl (31.0-36.0); Mean Corpuscular Hemoglobin 30.3 pg (27.0-33.0); Monocytes Absolute Auto 0.6 X10*3/uL (0.1-1.2); Monocytes Percent Auto 8.3 % (2-11); Neutrophils Absolute Auto 4.3 x10*3/uL (2.0-8.3); Neutrophils Percent Auto 58.2 % (45-73); Platelet Count 142 X10*3/uL (160-400); Red Blood Count 2.61 X10*6/uL (4.60-5.80); Red Cell Distribution Width 17.2 % (11.0-16.0); White Blood Count 7.4 X10*3/uL (4.8-10.8)
[2023-09-21 06:59] LABS: Alanine Aminotransferase 18 U/L (0-40); Albumin Level 3.7 g/dL (3.5-5.0); Alkaline Phosphatase 103 U/L (39-117); Anion Gap 12 (12-20); Aspartate Amino Transferase 23 U/L (5-37); Bilirubin Total 0.5 mg/dL (0.0-1.0); Blood Urea Nitrogen 24 mg/dL (9-16); Carbon Dioxide 28 mmol/L (22-29); Chloride 105 mmol/L (96-108); Creatinine Clr Calc Pharmacy 59.6; Estimated Glomerular Filt Rate 58; Glucose Random 105 mg/dL (60-115); Phosphorus 2.3 mg/dL (2.7-4.5); Potassium 3.9 mmol/L (3.3-5.1); Sodium 141 mmol/L (135-145); Total Protein 7.9 g/dL (6.5-8.0)
[2023-09-21 07:34] LABS: Magnesium 1.4 mg/dL (1.6-2.6)
[2023-09-21] MEDS: Metoprolol Tartrate 25 MG TABLET PO ×2 (07:44→20:55)
[2023-09-21] MEDS: amLODIPine Besylate 10 MG TABLET PO (07:44)
[2023-09-21] MEDS: OLANZapine 5 MG TABLET PO ×2 (07:44→20:54)
[2023-09-21] MEDS: Lidocaine 4 % Patch ADH..PATCH 2 PATCH TRANSDERMA (07:47)
[2023-09-21] MEDS: Magnesium Sulfate/H2O 2 GM/50 ML PIGGYBACK IV (07:47)
[2023-09-21] MEDS: Tamsulosin HCL 0.4 MG CAPSULE PO (07:59)
[2023-09-21 10:01] LABS: Glucose, Whole Blood 93 mg/dL (60-115)
--- NOTE | 2023-09-21 10:38 | MHC.SLORD ---
Speech Language Pathology Order Status: PO trials on hold as patient is NPO today for upper endo. Once cleared to start back on diet, recommend continue on Chopped/Advanced diet (NDD3) with Thin Liquids. [employer]GER will continue to follow.
[2023-09-21] MEDS: KCl 20 mEq in 5 % Dex/Lact Rin 20 MEQ/1,000 ML IV.SOLN 100 MEQ IVCONT (10:44)
--- NOTE | 2023-09-21 10:56 | MHC.CM.PN ---
Addendum entered by Joanne Rosales RN 09/21/23 14:38: NOTE 09/20 W/LESS THAN 30 DAY FAXED TO [facility]. Original Note: EMR REVIEWED, CM RECEIVED CALL FROM [facility] WHO REQUESTED COPY OF LEVEL ONE, MH FORM AND NOTE W/MEDLIST AND LESS THAN 30 DAY STAY, ALL ITEMS FAXED EXCLUDING TODAYS NOTE W/LESS THAN 30, CM WILL FAX ONCE COMPLETED BY HOSPITALIST. CM RECEIVED A CALL BACK FROM PT'S [facility] COMPO CASTER KRISTAL [phone] WHO WAS FOLLOWING UP AND WOULD LIKE TO KNOW IF PT WILL HAVE APPT'S SHE NEEDS TO TAKE HIM TO, CM TO FOLLOW UP ON DC. PER HOSPITALIST PT WILL NEED EGD TOMORROW AND THEN WILL LIKELY BE CLEARED FOR DC, CM WILL CONT TO FOLLOW.
--- NOTE | 2023-09-21 12:26 | P.PNIM_ITS ---
Subjective Subjective Date of Service: 09/21/23 Interval History: seen in f/u for prolonged hospitalization d/t drug overdose related acute resp failure needing inutbation, shock leading ATN/renal failure needing temp HD, aspriation pna, gram negative sepsis, reintubation for aspriation pneumonia. He continues to experience nausea, and lu upper abd discomfort, H/H remains low. He fell out of bed yesterday and was having facial pain,. CT of head, face and cervical spine showed no acute pathology. Physical Exam 2 Vital Signs: Vital Signs: Last Vital Signs Temp 98.7 F 09/21/23 11:25 Pulse 73 09/21/23 11:25 Resp 16 09/21/23 11:25 BP 144/79 H 09/21/23 11:25 Pulse Ox 99 09/21/23 11:25 O2 Del Method Room Air 09/21/23 11:25 O2 Flow Rate 40 09/11/23 20:00 FiO2 21 09/15/23 12:00 BMI result Body Mass Index 21.7 .alert, oriented to self place, no distr ess cv RRR S1S2, lungs cta abd S, NT, ND, +BS Ext: no edema, Neuro: NF Objective Data Active Medications Acetaminophen (Acetaminophen 325 Mg Tablet) 975 mg PO Q6H PRN PRN Reason: pain, headache or fever Last Admin: 09/21/23 04:58 Dose: 975 mg Documented By: ALICIA Amlodipine Besylate (Amlodipine Besylate 10 Mg Tablet) 10 mg PO DAILY [facility]; Protocol Last Admin: 09/21/23 07:44 Dose: 10 mg Documented By: KI Diphenhydramine HCl (Diphenhydramine Hcl 25 Mg Capsule) 50 mg PO Q6H PRN PRN Reason: Itching or insomnia Last Admin: 09/21/23 04:56 Dose: 50 mg Documented By: ALICIA Enoxaparin Sodium (Enoxaparin Sodium 40 Mg/0.4 Ml Syringe) 40 mg SUBCUT Q24H [facility] Last Admin: 09/21/23 10:49 Dose: Not Given Documented By: KI Non-Admin Reason: EGD scheduled for today Glucose (Glucose Gel 15 Gm Gel..Gram.) 15 gm PO Q15M PRN; Protocol PRN Reason: per Hypoglycemia Standing Ord. Dextrose (D10) 250 mls @ 750 mls/hr IV Q15M PRN; Protocol PRN Reason: per Hypoglycemia Standing Ord. Potassium Cl/Dextrose/Lact Ringer's (Kcl 20 Meq In 5 % Dex/Lact Rin) 20 meq in 1,000 mls @ 100 mls/hr IVCONT .Q10H [facility] Last Admin: 09/21/23 10:44 Dose: 100 mls/hr Documented By: KI Lidocaine (Lidocaine 4 % Patch Adh..Patch) 2 patch TRANSDERMA DAILY [facility]; Protocol Last Admin: 09/21/23 07:47 Dose: 2 patch Documented By: KI Metoprolol Tartrate (Metoprolol Tartrate 25 Mg Tablet) 25 mg PO BID [facility]; Protocol Last Admin: 09/21/23 07:44 Dose: 25 mg Documented By: KI Mirtazapine (Mirtazapine 15 Mg Tablet) 15 mg PO BEDTIME [facility] Last Admin: 09/20/23 20:17 Dose: 15 mg Documented By: ALICIA Nystatin (Nystatin Cream 15 Gm Tube) 1 appl TOPICAL BID [facility]; Protocol Last Admin: 09/21/23 09:33 Dose: Not Given Documented By: SUGEY Non-Admin Reason: Patient Asleep Olanzapine (Olanzapine 5 Mg Tablet) 5 mg PO BID [facility] Last Admin: 09/21/23 07:44 Dose: 5 mg Documented By: KI Olanzapine (Olanzapine 2.5 Mg Tablet) 2.5 mg PO DAILY PRN PRN Reason: anxiety/agitation Last Admin: 09/20/23 23:46 Dose: 2.5 mg Documented By: ALICIA Ondansetron HCl (Ondansetron Hcl 4 Mg/2 Ml Vial) 4 mg IVPUSH Q4H PRN PRN Reason: Nausea and Vomiting Last Admin: 09/19/23 23:48 Dose: 4 mg Documented By: CECILIA Pantoprazole Sodium (Pantoprazole Sodium 40 Mg/10 Ml Vial) 40 mg IVPUSH BID@0630,1630 [facility] Last Admin: 09/21/23 04:58 Dose: 40 mg Documented By: ALICIA Polyethylene Glycol (Polyethylene Glycol 3350 17 Gm Powd.Pack) 17 gm PO DAILY [facility] Last Admin: 09/21/23 07:58 Dose: Not Given Documented By: KI Non-Admin Reason: NPO Prochlorperazine Edisylate (Prochlorperazine Edisylate 10 Mg/2 Ml Vial) 5 mg IVPUSH Q4H PRN PRN Reason: Nausea and Vomiting Last Admin: 09/20/23 03:30 Dose: 5 mg Documented By: CECILIA Comments: Nausea Sodium Chloride (0.9 % Sodium Chloride Flush 3 Ml Syringe) 3 ml IVFLUSH QSHIFT [facility] Last Admin: 09/21/23 07:57 Dose: Not Given Documented By: KI Non-Admin Reason: IV Running Tamsulosin HCl (Tamsulosin Hcl 0.4 Mg Capsule) 0.4 mg PO DAILY [facility] Last Admin: 09/21/23 07:59 Dose: 0.4 mg Documented By: KI Zolpidem Tartrate (Zolpidem Tartrate 5 Mg Tablet) 5 mg PO BEDTIME [facility] Last Admin: 09/20/23 20:17 Dose: 5 mg Documented By: ALICIA Labs 09/21/23 06:01 09/21/23 06:01 Labs: Laboratory Results - last 24 hr 09/20/23 09/21/23 09/21/23 21:30 06:01 09:56 MCV 92.0 MCH 30.3 MCHC 32.9 RDW 17.2 H Plt Count 142 L MPV 9.0 L Immature Gran % (Auto) 0.3 Neut % (Auto) 58.2 Lymph % (Auto) 21.9 [place] % (Auto) 8.3 Eos % (Auto) 10.6 H Baso % (Auto) 0.7 Lymph # (Auto) 1.6 [place] # (Auto) 0.6 Eos # (Auto) 0.8 H Baso # (Auto) 0.1 Abs Immat Gran (auto) 0.02 Absolute Neuts (auto) 4.3 Absolute Nucleated RBC 0.000 Nucleated RBC % (auto) 0.0 Anion Gap 12 Estim Creat Clear Calc 59.6 Estimated GFR 58 POC Glucose 81 93 Random Glucose 105 Calcium 10.0 Phosphorus 2.3 L Magnesium 1.4 L* Total Bilirubin 0.5 AST 23 ALT 18 Alkaline Phosphatase 103 Total Protein 7.9 Albumin 3.7 Microbiology Microbiology Results: Microbiology 09/19/23 06:42 Blood Culture - Preliminary Blood - Venous No growth after 48 hours. 09/19/23 06:47 Blood Culture - Preliminary Blood - Venous No growth after 48 hours. Assessment and Plan (1) Anoxic brain injury: Status: Acute (2) Acute renal failure: Status: Acute Plan 53-make admitted through the ICU on 08/18, His past medical history includes depression, GERD, dysphagia, BPH, bipolar disorder, anemia, alcohol and opiate abuse, anxiety, GI bleed who was found obtunded and admitted with rhabdomyolysis, acute kidney injury and shock. Additionally, he developed aspiration pneumonia and was found to have gram-negative fitz sepsis, gastrointestinal bleed, and acute blood anemia. Toxic Metabolic encephalopathy--d/t anoxic brain injury (noted on MRI, slowing on EEG) renal failure, rhabdomylsosi. Overall is making good recovery. -continue goal directed treatment Acute hypoxic resp failure d/t Overdose and sepsis 2/2 aspiration PNA, required reintubation, doing well on room air. completed 10 days antibiotics, wbc normal, no fever. 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 now off dialysis and catheter removed Metabolic acidosis--multifactorial, resolved. HTN--BP on high side, continue Norvasc 10 mg daily, add metoprolol 25 mg bid Hx drug abuse, no seeking behaviors, addiction med to assess prior to dc Anemia/gib likely upper gib from gastric and esophageal iriatation, s/p 1 unit or RBC on 09/12, h/h stable. Continue IV PPI bid, at DC change to twice daily x 2 weeks, then once daily per GI recommendation. Will have EGD tomorrow, diet as tolerated abd pain n/v, CT showed no acute finding, PPI as above Lovenox for DVT prophylaxis Need for inpatient: recoverying from complicated medical course as above Will be discharge to rehab for less than 30 days follwing EGD tomorrow Quality Stroke Does the patient have a stroke diagnosis?: No VTE Prior VTE?: No VTE Risk Level:: Medical - low VTE Device Contraindication: N/A - Device Ordered VTE Drug Contraindication: N/A - Med Ordered
--- NOTE | 2023-09-21 13:12 | PM.PNNEP ---
Subjective Subjective Date of Service: 09/21/23 Interval history: seen in f/u for prolonged hospitalization d/t drug overdose related acute resp failure needing inutbation, shock leading ATN/renal failure needing temp HD, aspriation pna, gram negative sepsis, reintubation for aspriation pneumonia. He continues to experience nausea, and lu upper abd discomfort, H/H remains low. He fell out of bed yesterday and was having facial pain,. CT of head, face and cervical spine showed no acute pathology. Physical Exam Vital Signs: Vital Signs: Last Vital Signs Temp 98.7 F 09/21/23 11:25 Pulse 73 09/21/23 11:25 Resp 16 09/21/23 11:25 BP 144/79 H 09/21/23 11:25 Pulse Ox 99 09/21/23 11:25 O2 Del Method Room Air 09/21/23 11:25 O2 Flow Rate 40 09/11/23 20:00 FiO2 21 09/15/23 12:00 BMI result Body Mass Index 21.7 Const: General: ill appearing Neck: Neck: Yes supple Resp: Auscultation: clear to auscultation bilaterally Cardio: Palpation: no palpable S3 Heart sounds: no rubs GI: Palpation (GI): Soft to palpation Auscultation: normal bowel sounds Neuro: Motor exam (neuro): no asterixis Objective Data Labs 09/21/23 06:01 09/21/23 06:01 Labs: Laboratory Results - last 24 hr 09/20/23 09/21/23 09/21/23 21:30 06:01 09:56 WBC 7.4 RBC 2.61 L Hgb 7.9 L Hct 24.0 L MCV 92.0 MCH 30.3 MCHC 32.9 RDW 17.2 H Plt Count 142 L MPV 9.0 L Immature Gran % (Auto) 0.3 Neut % (Auto) 58.2 Lymph % (Auto) 21.9 [place] % (Auto) 8.3 Eos % (Auto) 10.6 H Baso % (Auto) 0.7 Lymph # (Auto) 1.6 [place] # (Auto) 0.6 Eos # (Auto) 0.8 H Baso # (Auto) 0.1 Abs Immat Gran (auto) 0.02 Absolute Neuts (auto) 4.3 Absolute Nucleated RBC 0.000 Nucleated RBC % (auto) 0.0 Sodium 141 Potassium 3.9 Chloride 105 Carbon Dioxide 28 Anion Gap 12 BUN 24 H Creatinine 1.28 Estim Creat Clear Calc 59.6 Estimated GFR 58 POC Glucose 81 93 Random Glucose 105 Calcium 10.0 Phosphorus 2.3 L Magnesium 1.4 L* Total Bilirubin 0.5 AST 23 ALT 18 Alkaline Phosphatase 103 Total Protein 7.9 Albumin 3.7 Microbiology Microbiology Results: Microbiology 09/19/23 06:42 Blood - Venous Blood Culture - Preliminary No growth after 48 hours. 09/19/23 06:47 Blood - Venous Blood Culture - Preliminary No growth after 48 hours. 09/08/23 03:22 Blood - Venous Blood Culture - Final No growth after 5 days. 09/08/23 03:22 Blood - Venous Blood Culture - Final No growth after 5 days. 08/20/23 16:53 Lung - Suctioned Gram Stain - Final 08/20/23 16:53 Lung - Suctioned Sputum Culture - Final Stefanie albicans Stefanie dubliniensis 08/19/23 02:59 Blood - Venous Blood Culture - Final Propionibacterium acnes 08/19/23 02:59 Blood - Venous Blood Culture - Final Propionibacterium acnes 08/19/23 Unknown Urine Catheterized - Bess Catheter Urine Culture - Final No growth. 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 In view of uremia and severe hypercalcemia he received hemodialysis . Urine output as improved. Creatinine is around 1.28 Hypokalemia due to GI and urinary losses. Acidosis under control. No further indication for dialysis . Continue to avoid nephrotoxic agents. Time Spent With Patient Time: Total time managing care of this patient today ____ minutes. Progress Note: Quality Stroke Does the patient have a stroke diagnosis?: No
--- NOTE | 2023-09-21 14:03 | MHC.CLN ---
F/U REVIEWED LABS DIET RX: REGULAR-WILL CHANGE TO CHOPPED PER MANAGER LVN RECOMMENDATIONS DATED 09/21/23 WILL RE-START ENSURE TID TO PROVIDE 1050KCALS, 60G PROTEIN MONITOR PO INTAKE AND ENCOURAGE SUPPLEMENTS
[2023-09-21] MEDS: Morphine Sulfate 2 MG/ML CARTRIDGE IVPUSH (18:37)
[2023-09-21 19:54] LABS: Glucose, Whole Blood 147 mg/dL (60-115)
[2023-09-21] MEDS: Mirtazapine 15 MG TABLET PO (20:54)
[2023-09-21] MEDS: Nystatin Cream 15 GM TUBE 1 APPL TOPICAL (22:26)
[2023-09-21] MEDS: Zolpidem Tartrate 5 MG TABLET PO (22:28)
[2023-09-21 22:43] LABS: Glucose, Whole Blood 61 mg/dL (60-115)
[2023-09-21 23:55] LABS: Glucose, Whole Blood 116 mg/dL (60-115)
[2023-09-22] VITALS (12 sets, daily range): BP systolic 124–180; BP diastolic 67–84; PULSE 83–103; RESP 16–20; TEMP 36.6–38.3; O2SAT 98–100; BMI 22.0
[2023-09-22] MEDS: 0.9 % Sodium Chloride Flush 3 ML SYRINGE IVFLUSH ×3 (00:35→19:51)
[2023-09-22] MEDS: Morphine Sulfate 2 MG/ML CARTRIDGE IVPUSH ×3 (00:37→18:21)
[2023-09-22] MEDS: Pantoprazole Sodium 40 MG/10 ML VIAL IVPUSH (06:00)
--- NOTE | 2023-09-22 07:49 | HO.ANESPROP2 ---
HPI - Anesthesia Eval Consult details Narrative: for EGD PMFSH Active Problems Active Problems: All Active Problems UGI bleed (Acute) Anoxic brain injury (Acute) Acute renal failure (Acute) Fever, unknown origin (Acute) Metabolic encephalopathy (Acute) Polysubstance abuse (Acute) Aspiration pneumonia (Acute) Acute hypoxemic respiratory failure (Acute) NAOMI (acute kidney injury) (Acute) Rhabdomyolysis (Acute) Hypoxia (Acute) Multifocal pneumonia (Acute) Overdose (Acute) Low TSH level (Acute) Incomplete emptying of bladder due to benign prostatic hyperplasia (Acute) GERD (gastroesophageal reflux disease) (Acute) Chronic constipation (Acute) Dysphagia (Acute) Osteoarthritis of left knee (Acute) MDD (major depressive disorder), recurrent, severe, with psychosis (Acute) Hypokalemia (Acute) Transaminasemia (Acute) Hypomagnesemia (Acute) Bipolar disorder (Acute) Abdominal distension (Acute) Anemia (Acute) Erectile dysfunction (Acute) Alcohol use disorder (Acute) Alcohol use disorder, moderate, in controlled environment (Acute) Schizoaffective disorder (Acute) BPH w urinary obs/LUTS (Acute) Psychosis (Acute) Opioid use disorder (Acute) Depression with suicidal ideation (Acute) Weight loss (Acute) Anxiety (Acute) COVID-19 (Acute) Past Medical History Medical History (Updated 09/19/23 @ 15:37 by Rudy Watson MD) Cocaine use disorder Fever, unknown origin Low TSH level Alcohol dependence Opioid abuse Chest pain Weight loss Dysphagia Major depressive disorder, 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 GERD (gastroesophageal reflux disease) Anxiety Family History Family History Father HTN (hypertension) Diabetes Mother HTN (hypertension) Stroke Alzheimer disease Heart disease Family history of problems with anesthesia: No Surgical History Surgical History History of colonoscopy History of cystoscopy H/O umbilical hernia repair History of Problems with Anesthesia: No Social History Social History Household Members: Unknown / Unable to assess Housing: Unknown / Unable to assess Do you presently have visiting nurse or other home services: Yes Alcohol intake: former Comment: bilateral wrist restraints for airway safety Patient Tobacco Use Status: Former Tobacco user Tobacco use type: Cigarette Cigarette Packs Per Day: 12 Cigarettes Per Day: 240.0 Years Smoked: 12 e-Cigarette/Vaping Use: Never Used Second Hand Smoke Exposure: Yes Substance Use Type: Unknown Advance Directives Date on File: 02/14/20 service: No Current occupational status: unemployed and disabled Sexual orientation: Straight/Heterosexual Meds Allergies Allergy/AdvReac Type Severity Reaction Status Date / Time trazodone [TRAZODONE] Allergy Severe FACIAL Verified 08/19/23 02:58 SWELLING, swelling cat dander [CATS] Allergy Intermediate FACIAL Verified 08/19/23 02:58 ITCHING doxepin [DOXEPIN] Allergy Intermediate WEIGHT Verified 08/19/23 02:58 GAIN/LEG SWELLING Iodinated Contrast Media Allergy Intermediate ITCHING Verified 08/19/23 02:58 [IV DYE, IODINE CONTAINING CONTRAST ] nitroglycerin [NITROGLYCERIN] Allergy Unknown UNKNOWN Verified 08/19/23 02:58 tramadol [TRAMADOL] Allergy Unknown UNKNOWN, Verified 08/19/23 02:58 dry mouth ibuprofen [From MOTRIN] AdvReac Intermediate GI UPSET Verified 08/19/23 02:58 quetiapine [From SEROQUEL] AdvReac Intermediate FACIAL Verified 08/19/23 02:58 SWELLING aspirin [ASPIRIN] AdvReac Mild Stomach Verified 08/19/23 02:58 Upset Ibuprofen Allergy Unknown stomach Uncoded 08/19/23 02:58 ache IV contrast Allergy Unknown Unknown Uncoded 08/03/23 20:27 Motrin Allergy Unknown stomach Uncoded 08/03/23 20:27 pain Active Medications: Current Medications Acetaminophen (Acetaminophen 325 Mg Tablet) 975 mg PO Q6H PRN PRN Reason: pain, headache or fever Last Admin: 09/21/23 04:58 Dose: 975 mg Amlodipine Besylate (Amlodipine Besylate 10 Mg Tablet) 10 mg PO DAILY JAMES; Protocol Last Admin: 09/21/23 07:44 Dose: 10 mg Diphenhydramine HCl (Diphenhydramine Hcl 25 Mg Capsule) 50 mg PO Q6H PRN PRN Reason: Itching or insomnia Last Admin: 09/21/23 04:56 Dose: 50 mg Enoxaparin Sodium (Enoxaparin Sodium 40 Mg/0.4 Ml Syringe) 40 mg SUBCUT Q24H [facility] Last Admin: 09/21/23 10:49 Dose: Not Given Glucose (Glucose Gel 15 Gm Gel..Gram.) 15 gm PO Q15M PRN; Protocol PRN Reason: per Hypoglycemia Standing Ord. Dextrose (D10) 250 mls @ 750 mls/hr IV Q15M PRN; Protocol PRN Reason: per Hypoglycemia Standing Ord. Lidocaine (Lidocaine 4 % Patch Adh..Patch) 2 patch TRANSDERMA DAILY [facility]; Protocol Last Admin: 09/21/23 07:47 Dose: 2 patch Metoprolol Tartrate (Metoprolol Tartrate 25 Mg Tablet) 25 mg PO BID [facility]; Protocol Last Admin: 09/21/23 20:55 Dose: 25 mg Mirtazapine (Mirtazapine 15 Mg Tablet) 15 mg PO BEDTIME [facility] Last Admin: 09/21/23 20:54 Dose: 15 mg Morphine Sulfate (Morphine Sulfate 2 Mg/Ml Cartridge) 2 mg IVPUSH Q6H PRN PRN Reason: Pain, Severe (Pain Scale 7-10) Last Admin: 09/22/23 00:37 Dose: 2 mg Nystatin (Nystatin Cream 15 Gm Tube) 1 appl TOPICAL BID [facility]; Protocol Last Admin: 09/21/23 22:26 Dose: 1 appl Olanzapine (Olanzapine 5 Mg Tablet) 5 mg PO BID [facility] Last Admin: 09/21/23 20:54 Dose: 5 mg Olanzapine (Olanzapine 2.5 Mg Tablet) 2.5 mg PO DAILY PRN PRN Reason: anxiety/agitation Last Admin: 09/20/23 23:46 Dose: 2.5 mg Ondansetron HCl (Ondansetron Hcl 4 Mg/2 Ml Vial) 4 mg IVPUSH Q4H PRN PRN Reason: Nausea and Vomiting Last Admin: 09/19/23 23:48 Dose: 4 mg Pantoprazole Sodium (Pantoprazole Sodium 40 Mg/10 Ml Vial) 40 mg IVPUSH BID@0630,1630 [facility] Last Admin: 09/22/23 06:00 Dose: 40 mg Polyethylene Glycol (Polyethylene Glycol 3350 17 Gm Powd.Pack) 17 gm PO DAILY [facility] Last Admin: 09/21/23 07:58 Dose: Not Given Prochlorperazine Edisylate (Prochlorperazine Edisylate 10 Mg/2 Ml Vial) 5 mg IVPUSH Q4H PRN PRN Reason: Nausea and Vomiting Last Admin: 09/20/23 03:30 Dose: 5 mg Sodium Chloride (0.9 % Sodium Chloride Flush 3 Ml Syringe) 3 ml IVFLUSH QSHIFT [facility] Last Admin: 09/22/23 00:35 Dose: 3 ml Tamsulosin HCl (Tamsulosin Hcl 0.4 Mg Capsule) 0.4 mg PO DAILY [facility] Last Admin: 09/21/23 07:59 Dose: 0.4 mg Zolpidem Tartrate (Zolpidem Tartrate 5 Mg Tablet) 5 mg PO BEDTIME [facility] Last Admin: 09/21/23 22:28 Dose: 5 mg Home Medications ?Medication ?Instructions ?Recorded ?Confirmed ?Last Taken ?Type albuterol sulfate 90 mcg/actuation 2 puff inhalation Q4-6H PRN 08/19/23 08/19/23 Unknown History aerosol inhaler (Ventolin HFA) Shortness Of Breath Or Wheezing capsaicin 0.025 % topical cream 1 appl topical TID 08/19/23 08/19/23 Unknown History cetirizine 10 mg tablet 10 mg PO DAILY 08/19/23 08/19/23 Unknown History cholecalciferol (vitamin D3) 25 25 mcg PO DAILY 08/19/23 08/19/23 Unknown History mcg (1,000 unit) capsule diphenhydramine HCl 25 mg tablet 25 mg PO Q6H PRN Itching 08/19/23 08/19/23 Unknown History (Sindy-Dryl) fluticasone propionate 50 1 - 2 spray intranasal DAILY 08/19/23 08/19/23 Unknown History mcg/actuation nasal spray,suspension loperamide 2 mg tablet 2 mg PO Q6H PRN Loose Stool 08/19/23 08/19/23 Unknown History (Anti-Diarrheal (loperamide)) metformin 500 mg tablet,extended 500 mg PO QPM 08/19/23 08/19/23 Unknown History release 24 hr mirtazapine 15 mg tablet 15 mg PO BEDTIME 08/19/23 08/19/23 Unknown History ondansetron 4 mg disintegrating 4 mg PO Q8H PRN nausea/vomiting 08/19/23 08/19/23 Unknown History tablet polyethylene glycol 3350 17 17 g PO BID PRN constipation 08/19/23 08/19/23 Unknown History gram/dose oral powder selenium sulfide 2.5 % lotion 1 appl topical 3XW PRN DANDRUFF 08/19/23 08/19/23 Unknown History sennosides 8.6 mg tablet (senna) 8.6 mg PO BEDTIME PRN Constipation 08/19/23 08/19/23 Unknown History Exam Height,Weight and Vital Signs: Height 5 ft 8 in Weight 65.5 kg Last Vital Signs Temp 98.6 F 09/22/23 07:48 Pulse 98 09/22/23 07:48 Resp 20 09/22/23 07:48 BP 160/80 H 09/22/23 07:48 Pulse Ox 99 09/22/23 07:48 O2 Del Method Room Air 09/22/23 07:48 O2 Flow Rate 40 09/11/23 20:00 FiO2 21 09/15/23 12:00 Pertinent Lab Results Pertinent Lab Results: Laboratory Tests 08/19/23 08/19/23 08/19/23 02:06 02:28 02:30 WBC 17.9 H RBC 4.18 L Hgb 12.0 L Hct 38.7 L MCV 92.6 MCH 28.7 MCHC 31.0 RDW 15.8 Plt Count 266 MPV 8.8 L Immature Gran % (Auto) 0.7 H Neut % (Auto) 84.9 H Lymph % (Auto) 8.1 L [place] % (Auto) 5.8 Eos % (Auto) 0.2 Baso % (Auto) 0.3 Lymph # (Auto) 1.5 [place] # (Auto) 1.0 Eos # (Auto) 0.0 Baso # (Auto) 0.1 Abs Immat Gran (auto) 0.13 H Absolute Neuts (auto) 15.2 H Absolute Nucleated RBC 0.000 Nucleated RBC % (auto) 0.0 Neutrophils % (Manual) Band Neutrophils % Lymphocytes % (Manual) Monocytes % (Manual) Eosinophils % (Manual) Basophils % (Manual) Metamyelocytes % Myelocytes % Abs Neuts (Manual) Lymphocytes # (Manual) Monocytes # (Manual) Eosinophils # (Manual) Basophils # (Manual) Metamyelocytes # Myelocytes # Nucleated RBCs Smudge Cells Toxic Granulation Toxic Vacuolation Dohle Bodies Platelet Estimate Large Platelets Plt Morphology Comment RBC Morphology Polychromasia Hypochromasia Basophilic Stippling Microcytosis Macrocytosis Spherocytes Target Cells Tear Drop Cells Ovalocytes Stomatocytes Hernandez-Blakeslee Bodies Hilario Cells Schistocytes Smear Tech's Comments Smear Path Review Hold Purple Top PT 12.5 INR 1.0 O2 Saturation ABG pH at Pt Temp ABG pCO2 at Pt Temp ABG pO2 at Pt Temp ABG HCO3 ABG Base Excess (Actual) VBG pH 7.09 L* VBG pCO2 68 VBG pO2 59 VBG HCO3 21 L VBG O2 Saturation 81.0 VBG Base Excess -9.4 Sodium 141 Potassium 3.5 Chloride 101 Carbon Dioxide 19 L Anion Gap 25 H BUN 10 Creatinine 1.97 H Estim Creat Clear Calc TNP Estimated GFR 35 POC Glucose 184 H Random Glucose 185 H Estimat Average Glucose Hemoglobin A1c % Lactic Acid 9.3 H* Lactic Acid F/U @ 2Hr Lactic Acid F/U @ 4Hr Calcium 9.1 D Phosphorus Magnesium 2.1 Total Bilirubin 0.2 Direct Bilirubin < 0.2 AST 138 H ALT 48 H Alkaline Phosphatase 92 Ammonia 42 Total Creatine Kinase 8083 H Troponin I High Sens 43.9 H D B-Natriuretic Peptide 54 Total Protein 8.0 Albumin 4.2 Lipase 11 Prostate Specific Ag Procalcitonin 0.26 TSH Urine Color Urine Appearance Urine pH Ur Specific [place] Urine Protein Urine Glucose (UA) Urine Ketones Urine Blood Urine Nitrite Ur Leukocyte Esterase Urine RBC Urine WBC Ur Squamous Epith Cells Urine Bacteria Hyaline Casts Granular Casts Urine Yeast Nasal Screen MRSA (PCR) Nasal S. aureus Screen Nasal MRSA/S.aureus Interp Stool Occult Blood Random Vancomycin Urine Opiates Screen Ur Buprenorphine Scrn Ur Oxycodone Screen Urine Methadone Screen Urine Fentanyl Screen Ur Barbiturates Screen Ur Phencyclidine Scrn Ur Amphetamines Screen U Benzodiazepines Scrn Urine Cocaine Screen U Marijuana (THC) Screen Ethyl Alcohol < 10 Hep Bs Antigen Hep Bs Antibody Hep B Core Total Ab Influenza Type A (PCR) NEGATIVE Influenza Type B (PCR) NEGATIVE RSV RNA Qual (PCR) NEGATIVE SARS-CoV-2 RNA (RT-PCR) NEGATIVE Blood Type Antibody Screen Crossmatch 08/19/23 08/19/23 08/19/23 02:34 03:37 06:18 WBC RBC Hgb Hct MCV MCH MCHC RDW Plt Count MPV Immature Gran % (Auto) Neut % (Auto) Lymph % (Auto) [place] % (Auto) Eos % (Auto) Baso % (Auto) Lymph # (Auto) [place] # (Auto) Eos # (Auto) Baso # (Auto) Abs Immat Gran (auto) Absolute Neuts (auto) Absolute Nucleated RBC Nucleated RBC % (auto) Neutrophils % (Manual) Band Neutrophils % Lymphocytes % (Manual) Monocytes % (Manual) Eosinophils % (Manual) Basophils % (Manual) Metamyelocytes % Myelocytes % Abs Neuts (Manual) Lymphocytes # (Manual) Monocytes # (Manual) Eosinophils # (Manual) Basophils # (Manual) Metamyelocytes # Myelocytes # Nucleated RBCs Smudge Cells Toxic Granulation Toxic Vacuolation Dohle Bodies Platelet Estimate Large Platelets Plt Morphology Comment RBC Morphology Polychromasia Hypochromasia Basophilic Stippling Microcytosis Macrocytosis Spherocytes Target Cells Tear Drop Cells Ovalocytes Stomatocytes Hernandez-Blakeslee Bodies Pelzer Cells Schistocytes Smear Tech's Comments Smear Path Review Hold Purple Top PT INR O2 Saturation ABG pH at Pt Temp ABG pCO2 at Pt Temp ABG pO2 at Pt Temp ABG HCO3 ABG Base Excess (Actual) VBG pH VBG pCO2 VBG pO2 VBG HCO3 VBG O2 Saturation VBG Base Excess Sodium Potassium Chloride Carbon Dioxide Anion Gap BUN Creatinine Estim Creat Clear Calc Estimated GFR POC Glucose Random Glucose Estimat Average Glucose Hemoglobin A1c % Lactic Acid Lactic Acid F/U @ 2Hr 2.7 H* Lactic Acid F/U @ 4Hr Calcium Phosphorus Magnesium Total Bilirubin Direct Bilirubin AST ALT Alkaline Phosphatase Ammonia Total Creatine Kinase Troponin I High Sens B-Natriuretic Peptide Total Protein Albumin Lipase Prostate Specific Ag Procalcitonin TSH Urine Color Red A Urine Appearance Clear Urine pH 6.5 Ur Specific [place] 1.010 Urine Protein 100 (2+) H Urine Glucose (UA) 100 H Urine Ketones Negative Urine Blood Large (3+) H Urine Nitrite Negative Ur Leukocyte Esterase Negative Urine RBC 6-10 H Urine WBC 21-50 H Ur Squamous Epith Cells 3-5 Urine Bacteria None Seen Hyaline Casts 3-5 Granular Casts Present Urine Yeast Nasal Screen MRSA (PCR) Nasal S. aureus Screen Nasal MRSA/S.aureus Interp Stool Occult Blood Random Vancomycin Urine Opiates Screen POSITIVE H Ur Buprenorphine Scrn Not Detected Ur Oxycodone Screen Not Detected Urine Methadone Screen Not Detected Urine Fentanyl Screen POSITIVE H Ur Barbiturates Screen Not Detected Ur Phencyclidine Scrn Not Detected Ur Amphetamines Screen Not Detected U Benzodiazepines Scrn Not Detected Urine Cocaine Screen POSITIVE H U Marijuana (THC) Screen Not Detected Ethyl Alcohol Hep Bs Antigen Hep Bs Antibody Hep B Core Total Ab Influenza Type A (PCR) Influenza Type B (PCR) RSV RNA Qual (PCR) SARS-CoV-2 RNA (RT-PCR) Blood Type O Positive Antibody Screen NEGATIVE Crossmatch 08/19/23 08/19/23 08/19/23 08:27 08:31 09:22 WBC 2.3 L RBC 3.64 L Hgb 10.4 L Hct 31.7 L MCV 87.1 D MCH 28.6 MCHC 32.8 RDW 15.5 Plt Count 202 MPV 9.2 L Immature Gran % (Auto) Cancelled Neut % (Auto) Cancelled Lymph % (Auto) Cancelled [place] % (Auto) Cancelled Eos % (Auto) Cancelled Baso % (Auto) Cancelled Lymph # (Auto) Cancelled [place] # (Auto) Cancelled Eos # (Auto) Cancelled Baso # (Auto) Cancelled Abs Immat Gran (auto) Cancelled Absolute Neuts (auto) Cancelled Absolute Nucleated RBC 0.000 Nucleated RBC % (auto) 0.0 Neutrophils % (Manual) 30 L Band Neutrophils % 18 H Lymphocytes % (Manual) 47 H Monocytes % (Manual) 4 Eosinophils % (Manual) 1 Basophils % (Manual) Metamyelocytes % Myelocytes % Abs Neuts (Manual) 1.1 L Lymphocytes # (Manual) 1.1 L Monocytes # (Manual) 0.1 Eosinophils # (Manual) Basophils # (Manual) Metamyelocytes # Myelocytes # Nucleated RBCs Smudge Cells Toxic Granulation Toxic Vacuolation Dohle Bodies Platelet Estimate NORMAL Large Platelets Plt Morphology Comment NORMAL RBC Morphology NOTED Polychromasia Hypochromasia 1+ (5-14) Basophilic Stippling Microcytosis Macrocytosis Spherocytes Target Cells Tear Drop Cells Ovalocytes Stomatocytes Hernandez-Blakeslee Bodies Pelzer Cells Schistocytes Smear Tech's Comments Smear Path Review Hold Purple Top PT INR O2 Saturation ABG pH at Pt Temp ABG pCO2 at Pt Temp ABG pO2 at Pt Temp ABG HCO3 ABG Base Excess (Actual) VBG pH 7.41 VBG pCO2 41 VBG pO2 46 VBG HCO3 27 H VBG O2 Saturation 74.0 VBG Base Excess 2.4 Sodium 140 Potassium 3.3 Chloride 105 Carbon Dioxide 24 Anion Gap 14 BUN 12 Creatinine 1.48 H Estim Creat Clear Calc 54.5 Estimated GFR 49 POC Glucose Random Glucose 79 Estimat Average Glucose Hemoglobin A1c % Lactic Acid 2.5 H* Lactic Acid F/U @ 2Hr Lactic Acid F/U @ 4Hr Calcium 7.2 L D Phosphorus Magnesium Total Bilirubin Direct Bilirubin AST ALT Alkaline Phosphatase Ammonia Total Creatine Kinase > 46061 H Troponin I High Sens B-Natriuretic Peptide Total Protein Albumin Lipase Prostate Specific Ag Procalcitonin TSH Urine Color Urine Appearance Urine pH Ur Specific [place] Urine Protein Urine Glucose (UA) Urine Ketones Urine Blood Urine Nitrite Ur Leukocyte Esterase Urine RBC Urine WBC Ur Squamous Epith Cells Urine Bacteria Hyaline Casts Granular Casts Urine Yeast Nasal Screen MRSA (PCR) Nasal S. aureus Screen Nasal MRSA/S.aureus Interp Stool Occult Blood Random Vancomycin Urine Opiates Screen Ur Buprenorphine Scrn Ur Oxycodone Screen Urine Methadone Screen Urine Fentanyl Screen Ur Barbiturates Screen Ur Phencyclidine Scrn Ur Amphetamines Screen U Benzodiazepines Scrn Urine Cocaine Screen U Marijuana (THC) Screen Ethyl Alcohol Hep Bs Antigen Hep Bs Antibody Hep B Core Total Ab Influenza Type A (PCR) Influenza Type B (PCR) RSV RNA Qual (PCR) SARS-CoV-2 RNA (RT-PCR) Blood Type Antibody Screen Crossmatch 08/19/23 08/19/23 08/19/23 10:47 11:17 13:59 WBC 6.2 RBC 3.49 L Hgb 10.0 L Hct 30.8 L MCV 88.3 MCH 28.7 MCHC 32.5 RDW 15.7 Plt Count 182 MPV 9.5 Immature Gran % (Auto) Neut % (Auto) Lymph % (Auto) [place] % (Auto) Eos % (Auto) Baso % (Auto) Lymph # (Auto) [place] # (Auto) Eos # (Auto) Baso # (Auto) Abs Immat Gran (auto) Absolute Neuts (auto) Absolute Nucleated RBC 0.000 Nucleated RBC % (auto) 0.0 Neutrophils % (Manual) Band Neutrophils % Lymphocytes % (Manual) Monocytes % (Manual) Eosinophils % (Manual) Basophils % (Manual) Metamyelocytes % Myelocytes % Abs Neuts (Manual) Lymphocytes # (Manual) Monocytes # (Manual) Eosinophils # (Manual) Basophils # (Manual) Metamyelocytes # Myelocytes # Nucleated RBCs Smudge Cells Toxic Granulation Toxic Vacuolation Dohle Bodies Platelet Estimate Large Platelets Plt Morphology Comment RBC Morphology Polychromasia Hypochromasia Basophilic Stippling Microcytosis Macrocytosis Spherocytes Target Cells Tear Drop Cells Ovalocytes Stomatocytes Hernandez-Blakeslee Bodies Hilario Cells Schistocytes Smear Tech's Comments Smear Path Review Hold Purple Top PT INR O2 Saturation ABG pH at Pt Temp ABG pCO2 at Pt Temp ABG pO2 at Pt Temp ABG HCO3 ABG Base Excess (Actual) VBG pH VBG pCO2 VBG pO2 VBG HCO3 VBG O2 Saturation VBG Base Excess Sodium Potassium Chloride Carbon Dioxide Anion Gap BUN Creatinine Estim Creat Clear Calc Estimated GFR POC Glucose Random Glucose Estimat Average Glucose 117 Hemoglobin A1c % 5.7 Lactic Acid Lactic Acid F/U @ 2Hr 2.3 H* Lactic Acid F/U @ 4Hr 4.4 H* Calcium Phosphorus 1.4 L Magnesium Total Bilirubin Direct Bilirubin AST ALT Alkaline Phosphatase Ammonia Total Creatine Kinase Troponin I High Sens B-Natriuretic Peptide Total Protein Albumin Lipase Prostate Specific Ag Procalcitonin TSH Urine Color Urine Appearance Urine pH Ur Specific [place] Urine Protein Urine Glucose (UA) Urine Ketones Urine Blood Urine Nitrite Ur Leukocyte Esterase Urine RBC Urine WBC Ur Squamous Epith Cells Urine Bacteria Hyaline Casts Granular Casts Urine Yeast Nasal Screen MRSA (PCR) NEGATIVE Nasal S. aureus Screen NEGATIVE Nasal MRSA/S.aureus Interp SEE NOTE Stool Occult Blood Random Vancomycin Urine Opiates Screen Ur Buprenorphine Scrn Ur Oxycodone Screen Urine Methadone Screen Urine Fentanyl Screen Ur Barbiturates Screen Ur Phencyclidine Scrn Ur Amphetamines Screen U Benzodiazepines Scrn Urine Cocaine Screen U Marijuana (THC) Screen Ethyl Alcohol Hep Bs Antigen Hep Bs Antibody Hep B Core Total Ab Influenza Type A (PCR) Influenza Type B (PCR) RSV RNA Qual (PCR) SARS-CoV-2 RNA (RT-PCR) Blood Type Antibody Screen Crossmatch 08/19/23 08/19/23 08/20/23 19:56 20:00 05:08 WBC 11.9 H 17.8 H RBC 3.43 L 3.16 L Hgb 9.9 L 9.3 L Hct 29.0 L 26.0 L MCV 84.5 82.3 MCH 28.9 29.4 MCHC 34.1 35.8 RDW 15.5 15.3 Plt Count 184 178 MPV 9.6 9.5 Immature Gran % (Auto) Cancelled Neut % (Auto) Cancelled Lymph % (Auto) Cancelled [place] % (Auto) Cancelled Eos % (Auto) Cancelled Baso % (Auto) Cancelled Lymph # (Auto) Cancelled [place] # (Auto) Cancelled Eos # (Auto) Cancelled Baso # (Auto) Cancelled Abs Immat Gran (auto) Cancelled Absolute Neuts (auto) Cancelled Absolute Nucleated RBC 0.000 0.000 Nucleated RBC % (auto) 0.0 0.0 Neutrophils % (Manual) 26 L Band Neutrophils % 59 H Lymphocytes % (Manual) 9 L Monocytes % (Manual) Eosinophils % (Manual) Basophils % (Manual) Metamyelocytes % 5 Myelocytes % 1 Abs Neuts (Manual) 15.1 H Lymphocytes # (Manual) 1.6 Monocytes # (Manual) Eosinophils # (Manual) Basophils # (Manual) Metamyelocytes # 0.9 Myelocytes # 0.2 Nucleated RBCs Smudge Cells Toxic Granulation PRESENT Toxic Vacuolation Dohle Bodies Platelet Estimate NORMAL Large Platelets Plt Morphology Comment NORMAL RBC Morphology NOTED Polychromasia Hypochromasia 1+ (5-14) Basophilic Stippling Microcytosis 1+ (5-14) Macrocytosis Spherocytes Target Cells Tear Drop Cells Ovalocytes Stomatocytes Hernandze-Blakeslee Bodies Hilario Cells Schistocytes Smear Tech's Comments Smear Path Review Hold Purple Top PT INR O2 Saturation ABG pH at Pt Temp ABG pCO2 at Pt Temp ABG pO2 at Pt Temp ABG HCO3 ABG Base Excess (Actual) VBG pH VBG pCO2 VBG pO2 VBG HCO3 VBG O2 Saturation VBG Base Excess Sodium 137 137 Potassium 3.5 3.1 L Chloride 102 97 Carbon Dioxide 23 25 Anion Gap 16 18 BUN 19 H 25 H Creatinine 2.20 H 2.76 H Estim Creat Clear Calc 36.7 29.2 Estimated GFR 31 24 POC Glucose Random Glucose 174 H 183 H Estimat Average Glucose Hemoglobin A1c % Lactic Acid Lactic Acid F/U @ 2Hr Lactic Acid F/U @ 4Hr Calcium 6.8 L 6.4 L Phosphorus 2.4 L 2.0 L Magnesium 1.2 L* 2.1 Total Bilirubin 0.5 0.5 Direct Bilirubin AST 1487 H 1084 H ALT 269 H 229 H Alkaline Phosphatase 50 44 Ammonia Total Creatine Kinase > 71617 H > 19552 H Troponin I High Sens B-Natriuretic Peptide Total Protein 4.6 L 4.1 L Albumin 2.3 L 1.9 L Lipase Prostate Specific Ag Procalcitonin TSH Urine Color Urine Appearance Urine pH Ur Specific [place] Urine Protein Urine Glucose (UA) Urine Ketones Urine Blood Urine Nitrite Ur Leukocyte Esterase Urine RBC Urine WBC Ur Squamous Epith Cells Urine Bacteria Hyaline Casts Granular Casts Urine Yeast Nasal Screen MRSA (PCR) Nasal S. aureus Screen Nasal MRSA/S.aureus Interp Stool Occult Blood Random Vancomycin Urine Opiates Screen Ur Buprenorphine Scrn Ur Oxycodone Screen Urine Methadone Screen Urine Fentanyl Screen Ur Barbiturates Screen Ur Phencyclidine Scrn Ur Amphetamines Screen U Benzodiazepines Scrn Urine Cocaine Screen U Marijuana (THC) Screen Ethyl Alcohol Hep Bs Antigen Hep Bs Antibody Hep B Core Total Ab Influenza Type A (PCR) Influenza Type B (PCR) RSV RNA Qual (PCR) SARS-CoV-2 RNA (RT-PCR) Blood Type Antibody Screen Crossmatch 08/20/23 08/20/23 08/20/23 05:20 08:24 12:28 WBC 25.5 H RBC 3.58 L Hgb 10.4 L Hct 31.4 L D MCV 87.7 D MCH 29.1 MCHC 33.1 RDW 15.9 Plt Count 164 MPV 10.1 Immature Gran % (Auto) Neut % (Auto) Lymph % (Auto) [place] % (Auto) Eos % (Auto) Baso % (Auto) Lymph # (Auto) [place] # (Auto) Eos # (Auto) Baso # (Auto) Abs Immat Gran (auto) Absolute Neuts (auto) Absolute Nucleated RBC 0.000 Nucleated RBC % (auto) 0.0 Neutrophils % (Manual) Band Neutrophils % Lymphocytes % (Manual) Monocytes % (Manual) Eosinophils % (Manual) Basophils % (Manual) Metamyelocytes % Myelocytes % Abs Neuts (Manual) Lymphocytes # (Manual) Monocytes # (Manual) Eosinophils # (Manual) Basophils # (Manual) Metamyelocytes # Myelocytes # Nucleated RBCs Smudge Cells Toxic Granulation Toxic Vacuolation Dohle Bodies Platelet Estimate Large Platelets Plt Morphology Comment RBC Morphology Polychromasia Hypochromasia Basophilic Stippling Microcytosis Macrocytosis Spherocytes Target Cells Tear Drop Cells Ovalocytes Stomatocytes Hernandez-Blakeslee Bodies Pelzer Cells Schistocytes Smear Tech's Comments Smear Path Review Hold Purple Top PT INR O2 Saturation ABG pH at Pt Temp ABG pCO2 at Pt Temp ABG pO2 at Pt Temp ABG HCO3 ABG Base Excess (Actual) VBG pH 7.62 H* 7.64 H* VBG pCO2 31 32 VBG pO2 44 45 VBG HCO3 32 H 35 H VBG O2 Saturation 77.0 78.0 VBG Base Excess 11.1 13.9 Sodium Potassium Chloride Carbon Dioxide Anion Gap BUN Creatinine Estim Creat Clear Calc Estimated GFR POC Glucose Random Glucose Estimat Average Glucose Hemoglobin A1c % Lactic Acid Lactic Acid F/U @ 2Hr Lactic Acid F/U @ 4Hr Calcium Phosphorus Magnesium Total Bilirubin Direct Bilirubin AST ALT Alkaline Phosphatase Ammonia Total Creatine Kinase Troponin I High Sens B-Natriuretic Peptide Total Protein Albumin Lipase Prostate Specific Ag Procalcitonin TSH Urine Color Urine Appearance Urine pH Ur Specific [place] Urine Protein Urine Glucose (UA) Urine Ketones Urine Blood Urine Nitrite Ur Leukocyte Esterase Urine RBC Urine WBC Ur Squamous Epith Cells Urine Bacteria Hyaline Casts Granular Casts Urine Yeast Nasal Screen MRSA (PCR) Nasal S. aureus Screen Nasal MRSA/S.aureus Interp Stool Occult Blood Random Vancomycin Urine Opiates Screen Ur Buprenorphine Scrn Ur Oxycodone Screen Urine Methadone Screen Urine Fentanyl Screen Ur Barbiturates Screen Ur Phencyclidine Scrn Ur Amphetamines Screen U Benzodiazepines Scrn Urine Cocaine Screen U Marijuana (THC) Screen Ethyl Alcohol Hep Bs Antigen Hep Bs Antibody Hep B Core Total Ab Influenza Type A (PCR) Influenza Type B (PCR) RSV RNA Qual (PCR) SARS-CoV-2 RNA (RT-PCR) Blood Type Antibody Screen Crossmatch 08/20/23 08/20/23 08/21/23 20:11 22:40 05:07 WBC 21.1 H 12.7 H RBC 3.03 L 2.47 L Hgb 8.7 L 7.1 L Hct 24.9 L D 20.8 L* MCV 82.2 D 84.2 MCH 28.7 28.7 MCHC 34.9 34.1 RDW 15.7 15.9 Plt Count 169 103 L D MPV 10.4 10.3 Immature Gran % (Auto) Cancelled Neut % (Auto) Cancelled Lymph % (Auto) Cancelled [place] % (Auto) Cancelled Eos % (Auto) Cancelled Baso % (Auto) Cancelled Lymph # (Auto) Cancelled [place] # (Auto) Cancelled Eos # (Auto) Cancelled Baso # (Auto) Cancelled Abs Immat Gran (auto) Cancelled Absolute Neuts (auto) Cancelled Absolute Nucleated RBC 0.000 0.000 Nucleated RBC % (auto) 0.0 0.0 Neutrophils % (Manual) 43 L Band Neutrophils % 49 H Lymphocytes % (Manual) 5 L Monocytes % (Manual) Eosinophils % (Manual) 3 Basophils % (Manual) Metamyelocytes % Myelocytes % Abs Neuts (Manual) 11.7 H Lymphocytes # (Manual) 0.6 L Monocytes # (Manual) Eosinophils # (Manual) 0.4 Basophils # (Manual) Metamyelocytes # Myelocytes # Nucleated RBCs Smudge Cells PRESENT Toxic Granulation PRESENT Toxic Vacuolation Dohle Bodies PRESENT Platelet Estimate DECREASED Large Platelets PRESENT Plt Morphology Comment NOTED RBC Morphology NOTED Polychromasia 1+ (0-2) Hypochromasia 1+ (5-14) Basophilic Stippling Microcytosis 1+ (5-14) Macrocytosis Spherocytes Target Cells Tear Drop Cells 1+ (0-2) Ovalocytes 1+ (5-14) Stomatocytes Hernandez-Blakeslee Bodies Pelzer Cells 1+ (0-2) Schistocytes Smear Tech's Comments Smear Path Review Hold Purple Top PT INR O2 Saturation ABG pH at Pt Temp ABG pCO2 at Pt Temp ABG pO2 at Pt Temp ABG HCO3 ABG Base Excess (Actual) VBG pH VBG pCO2 VBG pO2 VBG HCO3 VBG O2 Saturation VBG Base Excess Sodium 140 141 Potassium 3.8 D 3.6 Chloride 102 103 Carbon Dioxide 25 23 Anion Gap 17 19 BUN 31 H 35 H Creatinine 3.94 H 4.17 H* Estim Creat Clear Calc 20.4 21.6 Estimated GFR 16 15 POC Glucose Random Glucose 96 86 Estimat Average Glucose Hemoglobin A1c % Lactic Acid Lactic Acid F/U @ 2Hr Lactic Acid F/U @ 4Hr Calcium 6.5 L 6.8 L Phosphorus 5.1 H 5.9 H Magnesium 1.9 1.9 Total Bilirubin 0.5 0.7 Direct Bilirubin AST 729 H 480 H ALT 192 H 131 H Alkaline Phosphatase 55 42 Ammonia Total Creatine Kinase Troponin I High Sens B-Natriuretic Peptide Total Protein 4.6 L 4.8 L Albumin 2.3 L 3.0 L Lipase Prostate Specific Ag Procalcitonin TSH Urine Color Urine Appearance Urine pH Ur Specific [place] Urine Protein Urine Glucose (UA) Urine Ketones Urine Blood Urine Nitrite Ur Leukocyte Esterase Urine RBC Urine WBC Ur Squamous Epith Cells Urine Bacteria Hyaline Casts Granular Casts Urine Yeast Nasal Screen MRSA (PCR) Nasal S. aureus Screen Nasal MRSA/S.aureus Interp Stool Occult Blood Random Vancomycin Urine Opiates Screen Ur Buprenorphine Scrn Ur Oxycodone Screen Urine Methadone Screen Urine Fentanyl Screen Ur Barbiturates Screen Ur Phencyclidine Scrn Ur Amphetamines Screen U Benzodiazepines Scrn Urine Cocaine Screen U Marijuana (THC) Screen Ethyl Alcohol Hep Bs Antigen Hep Bs Antibody Hep B Core Total Ab Influenza Type A (PCR) Influenza Type B (PCR) RSV RNA Qual (PCR) SARS-CoV-2 RNA (RT-PCR) Blood Type Antibody Screen Crossmatch 08/21/23 08/21/23 08/22/23 05:12 09:15 05:16 WBC RBC Hgb Hct MCV MCH MCHC RDW Plt Count MPV Immature Gran % (Auto) Neut % (Auto) Lymph % (Auto) [place] % (Auto) Eos % (Auto) Baso % (Auto) Lymph # (Auto) [place] # (Auto) Eos # (Auto) Baso # (Auto) Abs Immat Gran (auto) Absolute Neuts (auto) Absolute Nucleated RBC Nucleated RBC % (auto) Neutrophils % (Manual) Band Neutrophils % Lymphocytes % (Manual) Monocytes % (Manual) Eosinophils % (Manual) Basophils % (Manual) Metamyelocytes % Myelocytes % Abs Neuts (Manual) Lymphocytes # (Manual) Monocytes # (Manual) Eosinophils # (Manual) Basophils # (Manual) Metamyelocytes # Myelocytes # Nucleated RBCs Smudge Cells Toxic Granulation Toxic Vacuolation Dohle Bodies Platelet Estimate Large Platelets Plt Morphology Comment RBC Morphology Polychromasia Hypochromasia Basophilic Stippling Microcytosis Macrocytosis Spherocytes Target Cells Tear Drop Cells Ovalocytes Stomatocytes Hernandez-Blakeslee Bodies Pelzer Cells Schistocytes Smear Tech's Comments Smear Path Review Hold Purple Top PT INR O2 Saturation ABG pH at Pt Temp ABG pCO2 at Pt Temp ABG pO2 at Pt Temp ABG HCO3 ABG Base Excess (Actual) VBG pH 7.42 7.41 VBG pCO2 41 41 VBG pO2 51 51 VBG HCO3 27 H 26 VBG O2 Saturation 81.0 80.0 VBG Base Excess 2.4 1.6 Sodium Potassium Chloride Carbon Dioxide Anion Gap BUN Creatinine Estim Creat Clear Calc Estimated GFR POC Glucose Random Glucose Estimat Average Glucose Hemoglobin A1c % Lactic Acid Lactic Acid F/U @ 2Hr Lactic Acid F/U @ 4Hr Calcium Phosphorus Magnesium Total Bilirubin Direct Bilirubin AST ALT Alkaline Phosphatase Ammonia Total Creatine Kinase 65673 H Troponin I High Sens B-Natriuretic Peptide Total Protein Albumin Lipase Prostate Specific Ag Procalcitonin TSH Urine Color Urine Appearance Urine pH Ur Specific [place] Urine Protein Urine Glucose (UA) Urine Ketones Urine Blood Urine Nitrite Ur Leukocyte Esterase Urine RBC Urine WBC Ur Squamous Epith Cells Urine Bacteria Hyaline Casts Granular Casts Urine Yeast Nasal Screen MRSA (PCR) Nasal S. aureus Screen Nasal MRSA/S.aureus Interp Stool Occult Blood Random Vancomycin Urine Opiates Screen Ur Buprenorphine Scrn Ur Oxycodone Screen Urine Methadone Screen Urine Fentanyl Screen Ur Barbiturates Screen Ur Phencyclidine Scrn Ur Amphetamines Screen U Benzodiazepines Scrn Urine Cocaine Screen U Marijuana (THC) Screen Ethyl Alcohol Hep Bs Antigen Hep Bs Antibody Hep B Core Total Ab Influenza Type A (PCR) Influenza Type B (PCR) RSV RNA Qual (PCR) SARS-CoV-2 RNA (RT-PCR) Blood Type Antibody Screen Crossmatch 08/22/23 08/22/23 08/23/23 05:20 09:54 05:25 WBC 18.2 H RBC 2.76 L Hgb 7.9 L Hct 23.5 L MCV 85.1 MCH 28.6 MCHC 33.6 RDW 15.9 Plt Count 118 L MPV 10.9 Immature Gran % (Auto) Cancelled Neut % (Auto) Cancelled Lymph % (Auto) Cancelled [place] % (Auto) Cancelled Eos % (Auto) Cancelled Baso % (Auto) Cancelled Lymph # (Auto) Cancelled [place] # (Auto) Cancelled Eos # (Auto) Cancelled Baso # (Auto) Cancelled Abs Immat Gran (auto) Cancelled Absolute Neuts (auto) Cancelled Absolute Nucleated RBC 0.000 Nucleated RBC % (auto) 0.0 Neutrophils % (Manual) 67 Band Neutrophils % 28 H Lymphocytes % (Manual) 2 L Monocytes % (Manual) 2 Eosinophils % (Manual) 1 Basophils % (Manual) Metamyelocytes % Myelocytes % Abs Neuts (Manual) 17.3 H Lymphocytes # (Manual) 0.4 L Monocytes # (Manual) 0.4 Eosinophils # (Manual) 0.2 Basophils # (Manual) Metamyelocytes # Myelocytes # Nucleated RBCs Smudge Cells Toxic Granulation PRESENT Toxic Vacuolation Dohle Bodies PRESENT Platelet Estimate DECREASED Large Platelets PRESENT Plt Morphology Comment NOTED RBC Morphology NOTED Polychromasia Hypochromasia 1+ (5-14) Basophilic Stippling Microcytosis Macrocytosis Spherocytes Target Cells Tear Drop Cells 1+ (0-2) Ovalocytes 1+ (5-14) Stomatocytes Hernandez-Blakeslee Bodies Pelzer Cells Schistocytes Smear Tech's Comments Smear Path Review Hold Purple Top PT INR O2 Saturation ABG pH at Pt Temp ABG pCO2 at Pt Temp ABG pO2 at Pt Temp ABG HCO3 ABG Base Excess (Actual) VBG pH 7.42 VBG pCO2 39 VBG pO2 52 VBG HCO3 25 VBG O2 Saturation 82.0 VBG Base Excess 1.3 Sodium 141 Potassium 4.0 Chloride 103 Carbon Dioxide 21 L Anion Gap 21 H BUN 44 H Creatinine 5.36 H* Estim Creat Clear Calc 16.7 Estimated GFR 11 POC Glucose Random Glucose 131 H Estimat Average Glucose Hemoglobin A1c % Lactic Acid Lactic Acid F/U @ 2Hr Lactic Acid F/U @ 4Hr Calcium 7.4 L D Phosphorus 8.5 H Magnesium 2.2 Total Bilirubin 1.0 Direct Bilirubin AST 326 H ALT 123 H Alkaline Phosphatase 69 Ammonia Total Creatine Kinase 8197 H Troponin I High Sens B-Natriuretic Peptide Total Protein 5.1 L Albumin 2.7 L Lipase Prostate Specific Ag Procalcitonin TSH Urine Color Urine Appearance Urine pH Ur Specific [place] Urine Protein Urine Glucose (UA) Urine Ketones Urine Blood Urine Nitrite Ur Leukocyte Esterase Urine RBC Urine WBC Ur Squamous Epith Cells Urine Bacteria Hyaline Casts Granular Casts Urine Yeast Nasal Screen MRSA (PCR) Nasal S. aureus Screen Nasal MRSA/S.aureus Interp Stool Occult Blood Random Vancomycin Urine Opiates Screen Ur Buprenorphine Scrn Ur Oxycodone Screen Urine Methadone Screen Urine Fentanyl Screen Ur Barbiturates Screen Ur Phencyclidine Scrn Ur Amphetamines Screen U Benzodiazepines Scrn Urine Cocaine Screen U Marijuana (THC) Screen Ethyl Alcohol Hep Bs Antigen Hep Bs Antibody Hep B Core Total Ab Influenza Type A (PCR) Influenza Type B (PCR) RSV RNA Qual (PCR) SARS-CoV-2 RNA (RT-PCR) Blood Type Antibody Screen Crossmatch 08/23/23 08/24/23 08/24/23 05:31 05:15 05:17 WBC 15.2 H 15.4 H RBC 2.75 L 2.73 L Hgb 7.8 L 7.7 L Hct 22.9 L 22.2 L MCV 83.3 81.3 MCH 28.4 28.2 MCHC 34.1 34.7 RDW 16.0 16.0 Plt Count 125 L 158 L D MPV 11.3 10.6 Immature Gran % (Auto) 0.9 H 2.9 H Neut % (Auto) 80.6 H 73.1 H Lymph % (Auto) 6.1 L 8.3 L [place] % (Auto) 6.5 7.0 Eos % (Auto) 5.3 H 8.0 H Baso % (Auto) 0.6 0.7 Lymph # (Auto) 0.9 L 1.3 [place] # (Auto) 1.0 1.1 Eos # (Auto) 0.8 H 1.2 H Baso # (Auto) 0.1 0.1 Abs Immat Gran (auto) 0.13 H 0.45 H Absolute Neuts (auto) 12.2 H 11.2 H Absolute Nucleated RBC 0.000 0.000 Nucleated RBC % (auto) 0.0 0.0 Neutrophils % (Manual) Band Neutrophils % Lymphocytes % (Manual) Monocytes % (Manual) Eosinophils % (Manual) Basophils % (Manual) Metamyelocytes % Myelocytes % Abs Neuts (Manual) Lymphocytes # (Manual) Monocytes # (Manual) Eosinophils # (Manual) Basophils # (Manual) Metamyelocytes # Myelocytes # Nucleated RBCs Smudge Cells Toxic Granulation Toxic Vacuolation Dohle Bodies Platelet Estimate Large Platelets Plt Morphology Comment RBC Morphology Polychromasia Hypochromasia Basophilic Stippling Microcytosis Macrocytosis Spherocytes Target Cells Tear Drop Cells Ovalocytes Stomatocytes Hernandez-Blakeslee Bodies Hilario Cells Schistocytes Smear Tech's Comments Smear Path Review Hold Purple Top PT INR O2 Saturation ABG pH at Pt Temp ABG pCO2 at Pt Temp ABG pO2 at Pt Temp ABG HCO3 ABG Base Excess (Actual) VBG pH 7.40 VBG pCO2 38 VBG pO2 49 VBG HCO3 24 VBG O2 Saturation 78.0 VBG Base Excess -0.5 Sodium 141 144 Potassium 3.6 3.4 Chloride 103 103 Carbon Dioxide 22 21 L Anion Gap 20 23 H BUN 55 H 67 H Creatinine 6.25 H* 7.51 H* Estim Creat Clear Calc 14.1 11.7 Estimated GFR 9 8 POC Glucose Random Glucose 112 112 Estimat Average Glucose Hemoglobin A1c % Lactic Acid Lactic Acid F/U @ 2Hr Lactic Acid F/U @ 4Hr Calcium 7.6 L 7.6 L Phosphorus 6.3 H Magnesium 2.2 Total Bilirubin 1.0 1.3 H Direct Bilirubin AST 205 H 140 H ALT 107 H 94 H Alkaline Phosphatase 99 118 H Ammonia Total Creatine Kinase Troponin I High Sens B-Natriuretic Peptide Total Protein 5.1 L 5.2 L Albumin 2.4 L 2.3 L Lipase Prostate Specific Ag Procalcitonin TSH Urine Color Urine Appearance Urine pH Ur Specific [place] Urine Protein Urine Glucose (UA) Urine Ketones Urine Blood Urine Nitrite Ur Leukocyte Esterase Urine RBC Urine WBC Ur Squamous Epith Cells Urine Bacteria Hyaline Casts Granular Casts Urine Yeast Nasal Screen MRSA (PCR) Nasal S. aureus Screen Nasal MRSA/S.aureus Interp Stool Occult Blood Random Vancomycin Urine Opiates Screen Ur Buprenorphine Scrn Ur Oxycodone Screen Urine Methadone Screen Urine Fentanyl Screen Ur Barbiturates Screen Ur Phencyclidine Scrn Ur Amphetamines Screen U Benzodiazepines Scrn Urine Cocaine Screen U Marijuana (THC) Screen Ethyl Alcohol Hep Bs Antigen Hep Bs Antibody Hep B Core Total Ab Influenza Type A (PCR) Influenza Type B (PCR) RSV RNA Qual (PCR) SARS-CoV-2 RNA (RT-PCR) Blood Type Antibody Screen Crossmatch 08/25/23 08/25/23 08/25/23 05:25 05:32 06:57 WBC 13.6 H RBC 2.24 L Hgb 6.2 L* Hct 17.8 L* MCV 79.5 L MCH 27.7 MCHC 34.8 RDW 16.1 H Plt Count 139 L MPV 11.3 Immature Gran % (Auto) 2.8 H Neut % (Auto) 68.3 Lymph % (Auto) 11.9 L [place] % (Auto) 6.2 Eos % (Auto) 10.4 H Baso % (Auto) 0.4 Lymph # (Auto) 1.6 [place] # (Auto) 0.8 Eos # (Auto) 1.4 H Baso # (Auto) 0.1 Abs Immat Gran (auto) 0.38 H Absolute Neuts (auto) 9.3 H Absolute Nucleated RBC 0.000 Nucleated RBC % (auto) 0.0 Neutrophils % (Manual) Band Neutrophils % Lymphocytes % (Manual) Monocytes % (Manual) Eosinophils % (Manual) Basophils % (Manual) Metamyelocytes % Myelocytes % Abs Neuts (Manual) Lymphocytes # (Manual) Monocytes # (Manual) Eosinophils # (Manual) Basophils # (Manual) Metamyelocytes # Myelocytes # Nucleated RBCs Smudge Cells Toxic Granulation Toxic Vacuolation Dohle Bodies Platelet Estimate Large Platelets Plt Morphology Comment RBC Morphology Polychromasia Hypochromasia Basophilic Stippling Microcytosis Macrocytosis Spherocytes Target Cells Tear Drop Cells Ovalocytes Stomatocytes Hernandez-Blakeslee Bodies Pelzer Cells Schistocytes Smear Tech's Comments Smear Path Review Hold Purple Top PT INR O2 Saturation ABG pH at Pt Temp ABG pCO2 at Pt Temp ABG pO2 at Pt Temp ABG HCO3 ABG Base Excess (Actual) VBG pH 7.46 H VBG pCO2 33 VBG pO2 52 VBG HCO3 23 VBG O2 Saturation 83.0 VBG Base Excess 0.5 Sodium 145 Potassium 3.6 Chloride 104 Carbon Dioxide 19 L Anion Gap 26 H BUN 80 H Creatinine 8.38 H* Estim Creat Clear Calc 10.5 Estimated GFR 7 POC Glucose Random Glucose 161 H Estimat Average Glucose Hemoglobin A1c % Lactic Acid Lactic Acid F/U @ 2Hr Lactic Acid F/U @ 4Hr Calcium 8.0 L Phosphorus 5.4 H Magnesium 2.3 Total Bilirubin Direct Bilirubin AST ALT Alkaline Phosphatase Ammonia Total Creatine Kinase Troponin I High Sens B-Natriuretic Peptide Total Protein Albumin 3.0 L Lipase Prostate Specific Ag Procalcitonin TSH Urine Color Urine Appearance Urine pH Ur Specific [place] Urine Protein Urine Glucose (UA) Urine Ketones Urine Blood Urine Nitrite Ur Leukocyte Esterase Urine RBC Urine WBC Ur Squamous Epith Cells Urine Bacteria Hyaline Casts Granular Casts Urine Yeast Nasal Screen MRSA (PCR) Nasal S. aureus Screen Nasal MRSA/S.aureus Interp Stool Occult Blood Random Vancomycin Urine Opiates Screen Ur Buprenorphine Scrn Ur Oxycodone Screen Urine Methadone Screen Urine Fentanyl Screen Ur Barbiturates Screen Ur Phencyclidine Scrn Ur Amphetamines Screen U Benzodiazepines Scrn Urine Cocaine Screen U Marijuana (THC) Screen Ethyl Alcohol Hep Bs Antigen Hep Bs Antibody Hep B Core Total Ab Influenza Type A (PCR) Influenza Type B (PCR) RSV RNA Qual (PCR) SARS-CoV-2 RNA (RT-PCR) Blood Type O Positive Antibody Screen NEGATIVE Crossmatch See Detail 08/26/23 08/26/23 08/27/23 05:27 05:40 05:28 WBC 16.7 H 19.0 H RBC 2.51 L 2.48 L Hgb 7.2 L 7.0 L* Hct 20.1 L* 19.8 L* MCV 80.1 79.8 L MCH 28.7 28.2 MCHC 35.8 35.4 RDW 17.0 H 17.4 H Plt Count 145 L 160 MPV 11.6 10.9 Immature Gran % (Auto) 4.7 H Cancelled Neut % (Auto) 67.4 Cancelled Lymph % (Auto) 13.0 L Cancelled [place] % (Auto) 5.2 Cancelled Eos % (Auto) 9.3 H Cancelled Baso % (Auto) 0.4 Cancelled Lymph # (Auto) 2.2 Cancelled [place] # (Auto) 0.9 Cancelled Eos # (Auto) 1.6 H Cancelled Baso # (Auto) 0.1 Cancelled Abs Immat Gran (auto) 0.79 H Cancelled Absolute Neuts (auto) 11.2 H Cancelled Absolute Nucleated RBC 0.020 H 0.000 Nucleated RBC % (auto) 0.1 0.0 Neutrophils % (Manual) 75 H Band Neutrophils % 4 Lymphocytes % (Manual) 7 L Monocytes % (Manual) 1 L Eosinophils % (Manual) 11 H Basophils % (Manual) Metamyelocytes % 1 Myelocytes % 1 Abs Neuts (Manual) 15.0 H Lymphocytes # (Manual) 1.3 Monocytes # (Manual) 0.2 Eosinophils # (Manual) 2.1 H Basophils # (Manual) Metamyelocytes # 0.2 Myelocytes # 0.2 Nucleated RBCs Smudge Cells Toxic Granulation PRESENT Toxic Vacuolation Dohle Bodies PRESENT Platelet Estimate NORMAL Large Platelets Plt Morphology Comment NORMAL RBC Morphology NOTED Polychromasia 1+ (0-2) Hypochromasia 1+ (5-14) Basophilic Stippling Microcytosis 1+ (5-14) Macrocytosis Spherocytes Target Cells Tear Drop Cells 1+ (0-2) Ovalocytes 1+ (5-14) Stomatocytes Hernandez-Blakeslee Bodies Hilario Cells Schistocytes 1+ (0-2) Smear Tech's Comments Smear Path Review SEE NOTE Hold Purple Top PT INR O2 Saturation ABG pH at Pt Temp ABG pCO2 at Pt Temp ABG pO2 at Pt Temp ABG HCO3 ABG Base Excess (Actual) VBG pH 7.44 H VBG pCO2 35 VBG pO2 50 VBG HCO3 25 VBG O2 Saturation TNP VBG Base Excess 1.0 Sodium 142 142 Potassium 3.8 4.8 D Chloride 103 102 Carbon Dioxide 22 22 Anion Gap 21 H 23 H BUN 90 H 100 H Creatinine 8.42 H* 8.19 H* Estim Creat Clear Calc 10.5 10.8 Estimated GFR 7 7 POC Glucose Random Glucose 138 H 132 H Estimat Average Glucose Hemoglobin A1c % Lactic Acid Lactic Acid F/U @ 2Hr Lactic Acid F/U @ 4Hr Calcium 8.0 L 8.7 D Phosphorus 4.6 H 4.0 Magnesium 2.3 2.2 Total Bilirubin Direct Bilirubin AST ALT Alkaline Phosphatase Ammonia Total Creatine Kinase Troponin I High Sens B-Natriuretic Peptide Total Protein Albumin 2.5 L 3.0 L Lipase Prostate Specific Ag Procalcitonin TSH Urine Color Urine Appearance Urine pH Ur Specific [place] Urine Protein Urine Glucose (UA) Urine Ketones Urine Blood Urine Nitrite Ur Leukocyte Esterase Urine RBC Urine WBC Ur Squamous Epith Cells Urine Bacteria Hyaline Casts Granular Casts Urine Yeast Nasal Screen MRSA (PCR) Nasal S. aureus Screen Nasal MRSA/S.aureus Interp Stool Occult Blood Random Vancomycin Urine Opiates Screen Ur Buprenorphine Scrn Ur Oxycodone Screen Urine Methadone Screen Urine Fentanyl Screen Ur Barbiturates Screen Ur Phencyclidine Scrn Ur Amphetamines Screen U Benzodiazepines Scrn Urine Cocaine Screen U Marijuana (THC) Screen Ethyl Alcohol Hep Bs Antigen Hep Bs Antibody Hep B Core Total Ab Influenza Type A (PCR) Influenza Type B (PCR) RSV RNA Qual (PCR) SARS-CoV-2 RNA (RT-PCR) Blood Type Antibody Screen Crossmatch 08/27/23 08/28/23 08/28/23 05:30 04:40 04:43 WBC 19.2 H RBC 2.59 L Hgb 7.3 L Hct 20.8 L* MCV 80.3 MCH 28.2 MCHC 35.1 RDW 18.1 H Plt Count 214 D MPV 11.5 Immature Gran % (Auto) Cancelled Neut % (Auto) Cancelled Lymph % (Auto) Cancelled [place] % (Auto) Cancelled Eos % (Auto) Cancelled Baso % (Auto) Cancelled Lymph # (Auto) Cancelled [place] # (Auto) Cancelled Eos # (Auto) Cancelled Baso # (Auto) Cancelled Abs Immat Gran (auto) Cancelled Absolute Neuts (auto) Cancelled Absolute Nucleated RBC 0.000 Nucleated RBC % (auto) 0.0 Neutrophils % (Manual) 66 Band Neutrophils % 3 Lymphocytes % (Manual) 15 L Monocytes % (Manual) 5 Eosinophils % (Manual) 9 H Basophils % (Manual) Metamyelocytes % 1 Myelocytes % 1 Abs Neuts (Manual) 13.2 H Lymphocytes # (Manual) 2.9 Monocytes # (Manual) 1.0 Eosinophils # (Manual) 1.7 H Basophils # (Manual) 0.2 Metamyelocytes # 0.2 Myelocytes # 0.2 Nucleated RBCs Smudge Cells Toxic Granulation PRESENT Toxic Vacuolation Dohle Bodies PRESENT Platelet Estimate NORMAL Large Platelets Plt Morphology Comment NORMAL RBC Morphology NOTED Polychromasia 1+ (0-2) Hypochromasia 1+ (5-14) Basophilic Stippling Microcytosis 1+ (5-14) Macrocytosis Spherocytes 1+ (0-2) Target Cells 1+ (5-14) Tear Drop Cells Ovalocytes 1+ (5-14) Stomatocytes 1+ (5-14) Hernandez-Blakeslee Bodies Pelzer Cells Schistocytes 1+ (0-2) Smear Tech's Comments Smear Path Review Hold Purple Top PT INR O2 Saturation ABG pH at Pt Temp ABG pCO2 at Pt Temp ABG pO2 at Pt Temp ABG HCO3 ABG Base Excess (Actual) VBG pH 7.45 H 7.41 VBG pCO2 35 37 VBG pO2 49 72 VBG HCO3 24 24 VBG O2 Saturation 82.0 95.0 VBG Base Excess 1.1 0.1 Sodium 141 Potassium 5.6 H Chloride 102 Carbon Dioxide 23 Anion Gap 22 H BUN 111 H Creatinine 8.56 H* Estim Creat Clear Calc 10.4 Estimated GFR 7 POC Glucose Random Glucose 144 H Estimat Average Glucose Hemoglobin A1c % Lactic Acid Lactic Acid F/U @ 2Hr Lactic Acid F/U @ 4Hr Calcium 8.6 Phosphorus 4.7 H Magnesium 2.3 Total Bilirubin Direct Bilirubin AST ALT Alkaline Phosphatase Ammonia Total Creatine Kinase Troponin I High Sens B-Natriuretic Peptide Total Protein Albumin 2.9 L Lipase Prostate Specific Ag Procalcitonin TSH Urine Color Urine Appearance Urine pH Ur Specific [place] Urine Protein Urine Glucose (UA) Urine Ketones Urine Blood Urine Nitrite Ur Leukocyte Esterase Urine RBC Urine WBC Ur Squamous Epith Cells Urine Bacteria Hyaline Casts Granular Casts Urine Yeast Nasal Screen MRSA (PCR) Nasal S. aureus Screen Nasal MRSA/S.aureus Interp Stool Occult Blood Random Vancomycin Urine Opiates Screen Ur Buprenorphine Scrn Ur Oxycodone Screen Urine Methadone Screen Urine Fentanyl Screen Ur Barbiturates Screen Ur Phencyclidine Scrn Ur Amphetamines Screen U Benzodiazepines Scrn Urine Cocaine Screen U Marijuana (THC) Screen Ethyl Alcohol Hep Bs Antigen Hep Bs Antibody Hep B Core Total Ab Influenza Type A (PCR) Influenza Type B (PCR) RSV RNA Qual (PCR) SARS-CoV-2 RNA (RT-PCR) Blood Type Antibody Screen Crossmatch 08/28/23 08/29/23 08/29/23 20:16 04:28 04:30 WBC 19.4 H RBC 2.60 L Hgb 7.5 L Hct 21.4 L MCV 82.3 MCH 28.8 MCHC 35.0 RDW 18.5 H Plt Count 298 D MPV 11.2 Immature Gran % (Auto) Cancelled Neut % (Auto) Cancelled Lymph % (Auto) Cancelled [place] % (Auto) Cancelled Eos % (Auto) Cancelled Baso % (Auto) Cancelled Lymph # (Auto) Cancelled [place] # (Auto) Cancelled Eos # (Auto) Cancelled Baso # (Auto) Cancelled Abs Immat Gran (auto) Cancelled Absolute Neuts (auto) Cancelled Absolute Nucleated RBC 0.000 Nucleated RBC % (auto) 0.0 Neutrophils % (Manual) 62 Band Neutrophils % 12 H Lymphocytes % (Manual) 15 L Monocytes % (Manual) 3 Eosinophils % (Manual) 5 H Basophils % (Manual) 1 Metamyelocytes % 1 Myelocytes % 1 Abs Neuts (Manual) 14.4 H Lymphocytes # (Manual) 2.9 Monocytes # (Manual) 0.6 Eosinophils # (Manual) 1.0 H Basophils # (Manual) 0.2 Metamyelocytes # 0.2 Myelocytes # 0.2 Nucleated RBCs Smudge Cells PRESENT Toxic Granulation PRESENT Toxic Vacuolation Dohle Bodies Platelet Estimate NORMAL Large Platelets PRESENT Plt Morphology Comment NOTED RBC Morphology NOTED Polychromasia 1+ (0-2) Hypochromasia Basophilic Stippling Microcytosis Macrocytosis 1+ (5-14) Spherocytes Target Cells 1+ (5-14) Tear Drop Cells 2+ (3-5) Ovalocytes 1+ (5-14) Stomatocytes 1+ (5-14) Hernandez-Blakeslee Bodies Pelzer Cells Schistocytes Smear Tech's Comments Smear Path Review Hold Purple Top PT INR O2 Saturation ABG pH at Pt Temp ABG pCO2 at Pt Temp ABG pO2 at Pt Temp ABG HCO3 ABG Base Excess (Actual) VBG pH 7.41 VBG pCO2 38 VBG pO2 65 VBG HCO3 24 VBG O2 Saturation 92.0 VBG Base Excess 0.5 Sodium 141 141 Potassium 6.0 H* 5.8 H Chloride 101 100 Carbon Dioxide 23 23 Anion Gap 23 H 24 H BUN 123 H 123 H Creatinine 8.74 H* 8.81 H* Estim Creat Clear Calc 10.5 10.4 Estimated GFR 6 6 POC Glucose Random Glucose 115 111 Estimat Average Glucose Hemoglobin A1c % Lactic Acid Lactic Acid F/U @ 2Hr Lactic Acid F/U @ 4Hr Calcium 9.2 D 9.2 Phosphorus 5.5 H 6.0 H Magnesium 2.3 2.3 Total Bilirubin Direct Bilirubin AST ALT Alkaline Phosphatase Ammonia Total Creatine Kinase Troponin I High Sens B-Natriuretic Peptide Total Protein Albumin 3.1 L Lipase Prostate Specific Ag Procalcitonin TSH Urine Color Urine Appearance Urine pH Ur Specific [place] Urine Protein Urine Glucose (UA) Urine Ketones Urine Blood Urine Nitrite Ur Leukocyte Esterase Urine RBC Urine WBC Ur Squamous Epith Cells Urine Bacteria Hyaline Casts Granular Casts Urine Yeast Nasal Screen MRSA (PCR) Nasal S. aureus Screen Nasal MRSA/S.aureus Interp Stool Occult Blood Random Vancomycin Urine Opiates Screen Ur Buprenorphine Scrn Ur Oxycodone Screen Urine Methadone Screen Urine Fentanyl Screen Ur Barbiturates Screen Ur Phencyclidine Scrn Ur Amphetamines Screen U Benzodiazepines Scrn Urine Cocaine Screen U Marijuana (THC) Screen Ethyl Alcohol Hep Bs Antigen Hep Bs Antibody Hep B Core Total Ab Influenza Type A (PCR) Influenza Type B (PCR) RSV RNA Qual (PCR) SARS-CoV-2 RNA (RT-PCR) Blood Type Antibody Screen Crossmatch 08/30/23 08/30/23 08/30/23 05:05 05:10 06:13 WBC 17.7 H RBC 2.23 L Hgb 6.5 L* Hct 18.7 L* MCV 83.9 MCH 29.1 MCHC 34.8 RDW 18.7 H Plt Count 294 MPV 10.2 Immature Gran % (Auto) Cancelled Neut % (Auto) Cancelled Lymph % (Auto) Cancelled [place] % (Auto) Cancelled Eos % (Auto) Cancelled Baso % (Auto) Cancelled Lymph # (Auto) Cancelled [place] # (Auto) Cancelled Eos # (Auto) Cancelled Baso # (Auto) Cancelled Abs Immat Gran (auto) Cancelled Absolute Neuts (auto) Cancelled Absolute Nucleated RBC 0.000 Nucleated RBC % (auto) 0.0 Neutrophils % (Manual) 60 Band Neutrophils % 7 H Lymphocytes % (Manual) 19 L Monocytes % (Manual) 3 Eosinophils % (Manual) 9 H Basophils % (Manual) 1 Metamyelocytes % 1 Myelocytes % Abs Neuts (Manual) 11.9 H Lymphocytes # (Manual) 3.4 Monocytes # (Manual) 0.5 Eosinophils # (Manual) 1.6 H Basophils # (Manual) 0.2 Metamyelocytes # 0.2 Myelocytes # Nucleated RBCs Smudge Cells PRESENT Toxic Granulation Toxic Vacuolation Dohle Bodies Platelet Estimate NORMAL Large Platelets PRESENT Plt Morphology Comment NOTED RBC Morphology NOTED Polychromasia 1+ (0-2) Hypochromasia 1+ (5-14) Basophilic Stippling 1+ (0-2) Microcytosis Macrocytosis Spherocytes Target Cells 1+ (5-14) Tear Drop Cells 1+ (0-2) Ovalocytes Stomatocytes Hernandez-Blakeslee Bodies PRESENT Hilario Cells Schistocytes Smear Tech's Comments Smear Path Review Hold Purple Top PT INR O2 Saturation ABG pH at Pt Temp ABG pCO2 at Pt Temp ABG pO2 at Pt Temp ABG HCO3 ABG Base Excess (Actual) VBG pH 7.45 H VBG pCO2 34 VBG pO2 50 VBG HCO3 24 VBG O2 Saturation 83.0 VBG Base Excess 0.9 Sodium 142 Potassium 5.3 H Chloride 101 Carbon Dioxide 21 L Anion Gap 25 H BUN 137 H Creatinine 8.82 H* Estim Creat Clear Calc 10.3 Estimated GFR 6 POC Glucose Random Glucose 95 Estimat Average Glucose Hemoglobin A1c % Lactic Acid Lactic Acid F/U @ 2Hr Lactic Acid F/U @ 4Hr Calcium 8.7 Phosphorus 7.3 H Magnesium 2.5 Total Bilirubin Direct Bilirubin AST ALT Alkaline Phosphatase Ammonia Total Creatine Kinase Troponin I High Sens B-Natriuretic Peptide Total Protein Albumin 3.2 L Lipase Prostate Specific Ag Procalcitonin TSH Urine Color Urine Appearance Urine pH Ur Specific [place] Urine Protein Urine Glucose (UA) Urine Ketones Urine Blood Urine Nitrite Ur Leukocyte Esterase Urine RBC Urine WBC Ur Squamous Epith Cells Urine Bacteria Hyaline Casts Granular Casts Urine Yeast Nasal Screen MRSA (PCR) Nasal S. aureus Screen Nasal MRSA/S.aureus Interp Stool Occult Blood Random Vancomycin Urine Opiates Screen Ur Buprenorphine Scrn Ur Oxycodone Screen Urine Methadone Screen Urine Fentanyl Screen Ur Barbiturates Screen Ur Phencyclidine Scrn Ur Amphetamines Screen U Benzodiazepines Scrn Urine Cocaine Screen U Marijuana (THC) Screen Ethyl Alcohol Hep Bs Antigen Hep Bs Antibody Hep B Core Total Ab Influenza Type A (PCR) Influenza Type B (PCR) RSV RNA Qual (PCR) SARS-CoV-2 RNA (RT-PCR) Blood Type O Positive Antibody Screen NEGATIVE Crossmatch See Detail 08/31/23 08/31/23 09/01/23 04:49 04:55 05:17 WBC 18.4 H 16.5 H RBC 2.67 L 2.60 L Hgb 7.8 L 7.5 L Hct 22.5 L D 21.9 L MCV 84.3 84.2 MCH 29.2 28.8 MCHC 34.7 34.2 RDW 17.9 H 18.1 H Plt Count 402 H D 458 H MPV 10.1 10.8 Immature Gran % (Auto) 4.6 H 3.1 H Neut % (Auto) 66.1 70.0 Lymph % (Auto) 13.1 L 10.3 L [place] % (Auto) 4.8 4.5 Eos % (Auto) 11.1 H 11.7 H Baso % (Auto) 0.3 0.4 Lymph # (Auto) 2.4 1.7 [place] # (Auto) 0.9 0.7 Eos # (Auto) 2.1 H 1.9 H Baso # (Auto) 0.1 0.1 Abs Immat Gran (auto) 0.85 H 0.52 H Absolute Neuts (auto) 12.2 H 11.6 H Absolute Nucleated RBC 0.000 0.000 Nucleated RBC % (auto) 0.0 0.0 Neutrophils % (Manual) Band Neutrophils % Lymphocytes % (Manual) Monocytes % (Manual) Eosinophils % (Manual) Basophils % (Manual) Metamyelocytes % Myelocytes % Abs Neuts (Manual) Lymphocytes # (Manual) Monocytes # (Manual) Eosinophils # (Manual) Basophils # (Manual) Metamyelocytes # Myelocytes # Nucleated RBCs Smudge Cells Toxic Granulation Toxic Vacuolation Dohle Bodies Platelet Estimate Large Platelets Plt Morphology Comment RBC Morphology Polychromasia Hypochromasia Basophilic Stippling Microcytosis Macrocytosis Spherocytes Target Cells Tear Drop Cells Ovalocytes Stomatocytes Hernandez-Blakeslee Bodies Hilario Cells Schistocytes Smear Tech's Comments VERIFIED Smear Path Review Hold Purple Top PT INR O2 Saturation ABG pH at Pt Temp ABG pCO2 at Pt Temp ABG pO2 at Pt Temp ABG HCO3 ABG Base Excess (Actual) VBG pH 7.48 H 7.47 H VBG pCO2 30 30 VBG pO2 52 50 VBG HCO3 23 22 VBG O2 Saturation 87.0 79.0 VBG Base Excess 0.0 -0.1 Sodium 142 146 H Potassium 5.1 4.1 Chloride 99 100 Carbon Dioxide 20 L 20 L Anion Gap 28 H 30 H BUN 138 H 141 H Creatinine 8.68 H* 8.35 H* Estim Creat Clear Calc 10.5 10.8 Estimated GFR 6 7 POC Glucose Random Glucose 91 126 H Estimat Average Glucose Hemoglobin A1c % Lactic Acid Lactic Acid F/U @ 2Hr Lactic Acid F/U @ 4Hr Calcium 8.7 9.0 Phosphorus 8.3 H 9.2 H Magnesium 2.4 2.4 Total Bilirubin 0.8 Direct Bilirubin AST 35 ALT 29 Alkaline Phosphatase 175 H Ammonia Total Creatine Kinase Troponin I High Sens B-Natriuretic Peptide Total Protein 7.3 Albumin 3.1 L 3.9 Lipase Prostate Specific Ag Procalcitonin TSH Urine Color Urine Appearance Urine pH Ur Specific [place] Urine Protein Urine Glucose (UA) Urine Ketones Urine Blood Urine Nitrite Ur Leukocyte Esterase Urine RBC Urine WBC Ur Squamous Epith Cells Urine Bacteria Hyaline Casts Granular Casts Urine Yeast Nasal Screen MRSA (PCR) Nasal S. aureus Screen Nasal MRSA/S.aureus Interp Stool Occult Blood Random Vancomycin Urine Opiates Screen Ur Buprenorphine Scrn Ur Oxycodone Screen Urine Methadone Screen Urine Fentanyl Screen Ur Barbiturates Screen Ur Phencyclidine Scrn Ur Amphetamines Screen U Benzodiazepines Scrn Urine Cocaine Screen U Marijuana (THC) Screen Ethyl Alcohol Hep Bs Antigen Hep Bs Antibody Hep B Core Total Ab Influenza Type A (PCR) Influenza Type B (PCR) RSV RNA Qual (PCR) SARS-CoV-2 RNA (RT-PCR) Blood Type Antibody Screen Crossmatch 09/02/23 09/02/23 09/02/23 05:45 05:46 18:03 WBC 17.8 H RBC 2.89 L Hgb 8.5 L Hct 24.3 L MCV 84.1 MCH 29.4 MCHC 35.0 RDW 18.5 H Plt Count 595 H D MPV 11.0 Immature Gran % (Auto) 2.9 H Neut % (Auto) 73.2 H Lymph % (Auto) 9.6 L [place] % (Auto) 6.1 Eos % (Auto) 7.5 H Baso % (Auto) 0.7 Lymph # (Auto) 1.7 [place] # (Auto) 1.1 Eos # (Auto) 1.3 H Baso # (Auto) 0.1 Abs Immat Gran (auto) 0.52 H Absolute Neuts (auto) 13.0 H Absolute Nucleated RBC 0.000 Nucleated RBC % (auto) 0.0 Neutrophils % (Manual) Band Neutrophils % Lymphocytes % (Manual) Monocytes % (Manual) Eosinophils % (Manual) Basophils % (Manual) Metamyelocytes % Myelocytes % Abs Neuts (Manual) Lymphocytes # (Manual) Monocytes # (Manual) Eosinophils # (Manual) Basophils # (Manual) Metamyelocytes # Myelocytes # Nucleated RBCs Smudge Cells Toxic Granulation Toxic Vacuolation Dohle Bodies Platelet Estimate Large Platelets Plt Morphology Comment RBC Morphology Polychromasia Hypochromasia Basophilic Stippling Microcytosis Macrocytosis Spherocytes Target Cells Tear Drop Cells Ovalocytes Stomatocytes Hernandez-Blakeslee Bodies Pelzer Cells Schistocytes Smear Tech's Comments Smear Path Review Hold Purple Top PT INR O2 Saturation ABG pH at Pt Temp ABG pCO2 at Pt Temp ABG pO2 at Pt Temp ABG HCO3 ABG Base Excess (Actual) VBG pH 7.51 H VBG pCO2 30 VBG pO2 57 VBG HCO3 24 VBG O2 Saturation 87.0 VBG Base Excess 2.6 Sodium 149 H 153 H Potassium 3.2 L D 3.5 Chloride 100 101 Carbon Dioxide 24 24 Anion Gap 28 H 32 H BUN 147 H 145 H Creatinine 8.31 H* 7.99 H* Estim Creat Clear Calc 10.7 11.2 Estimated GFR 7 7 POC Glucose Random Glucose 137 H 145 H Estimat Average Glucose Hemoglobin A1c % Lactic Acid Lactic Acid F/U @ 2Hr Lactic Acid F/U @ 4Hr Calcium 9.8 D 10.0 Phosphorus 8.4 H Magnesium 2.6 Total Bilirubin Direct Bilirubin AST ALT Alkaline Phosphatase Ammonia Total Creatine Kinase Troponin I High Sens B-Natriuretic Peptide Total Protein Albumin 4.0 Lipase Prostate Specific Ag Procalcitonin TSH Urine Color Urine Appearance Urine pH Ur Specific [place] Urine Protein Urine Glucose (UA) Urine Ketones Urine Blood Urine Nitrite Ur Leukocyte Esterase Urine RBC Urine WBC Ur Squamous Epith Cells Urine Bacteria Hyaline Casts Granular Casts Urine Yeast Nasal Screen MRSA (PCR) Nasal S. aureus Screen Nasal MRSA/S.aureus Interp Stool Occult Blood Random Vancomycin Urine Opiates Screen Ur Buprenorphine Scrn Ur Oxycodone Screen Urine Methadone Screen Urine Fentanyl Screen Ur Barbiturates Screen Ur Phencyclidine Scrn Ur Amphetamines Screen U Benzodiazepines Scrn Urine Cocaine Screen U Marijuana (THC) Screen Ethyl Alcohol Hep Bs Antigen Hep Bs Antibody Hep B Core Total Ab Influenza Type A (PCR) Influenza Type B (PCR) RSV RNA Qual (PCR) SARS-CoV-2 RNA (RT-PCR) Blood Type Antibody Screen Crossmatch 09/03/23 09/03/23 09/04/23 05:14 19:28 04:42 WBC 20.4 H 22.4 H RBC 3.29 L 3.14 L Hgb 9.4 L 8.8 L Hct 27.8 L 27.0 L MCV 84.5 86.0 MCH 28.6 28.0 MCHC 33.8 32.6 RDW 18.8 H 18.9 H Plt Count 685 H 695 H MPV 10.5 10.4 Immature Gran % (Auto) 3.0 H 4.5 H Neut % (Auto) 69.6 62.9 Lymph % (Auto) 10.0 L 17.7 L [place] % (Auto) 6.0 8.1 Eos % (Auto) 10.3 H 5.4 H Baso % (Auto) 1.1 1.4 Lymph # (Auto) 2.0 4.0 [place] # (Auto) 1.2 1.8 H Eos # (Auto) 2.1 H 1.2 H Baso # (Auto) 0.2 0.3 H Abs Immat Gran (auto) 0.62 H 1.01 H Absolute Neuts (auto) 14.2 H 14.1 H Absolute Nucleated RBC 0.000 0.000 Nucleated RBC % (auto) 0.0 0.0 Neutrophils % (Manual) Band Neutrophils % Lymphocytes % (Manual) Monocytes % (Manual) Eosinophils % (Manual) Basophils % (Manual) Metamyelocytes % Myelocytes % Abs Neuts (Manual) Lymphocytes # (Manual) Monocytes # (Manual) Eosinophils # (Manual) Basophils # (Manual) Metamyelocytes # Myelocytes # Nucleated RBCs Smudge Cells Toxic Granulation Toxic Vacuolation Dohle Bodies Platelet Estimate Large Platelets Plt Morphology Comment RBC Morphology Polychromasia Hypochromasia Basophilic Stippling Microcytosis Macrocytosis Spherocytes Target Cells Tear Drop Cells Ovalocytes Stomatocytes Hernandez-Blakeslee Bodies Hilario Cells Schistocytes Smear Tech's Comments VERIFIED VERIFIED Smear Path Review Hold Purple Top PT INR O2 Saturation ABG pH at Pt Temp ABG pCO2 at Pt Temp ABG pO2 at Pt Temp ABG HCO3 ABG Base Excess (Actual) VBG pH 7.51 H VBG pCO2 31 VBG pO2 51 VBG HCO3 25 VBG O2 Saturation 78.0 VBG Base Excess 3.3 Sodium 152 H 153 H 152 H Potassium 3.5 4.1 3.9 Chloride 102 103 102 Carbon Dioxide 26 23 25 Anion Gap 28 H 31 H 29 H BUN 153 H 166 H 175 H Creatinine 7.71 H* 7.24 H* 7.24 H* Estim Creat Clear Calc 11.4 12.1 12.0 Estimated GFR 7 8 8 POC Glucose Random Glucose 163 H 137 H 139 H Estimat Average Glucose Hemoglobin A1c % Lactic Acid Lactic Acid F/U @ 2Hr Lactic Acid F/U @ 4Hr Calcium 11.1 H D 11.2 H 11.7 H Phosphorus 7.0 H 7.7 H 8.7 H Magnesium 2.6 2.5 2.5 Total Bilirubin 0.8 Direct Bilirubin AST 45 H ALT 32 Alkaline Phosphatase 173 H Ammonia 23 Total Creatine Kinase Troponin I High Sens B-Natriuretic Peptide Total Protein 9.1 H Albumin 4.2 4.1 Lipase Prostate Specific Ag Procalcitonin TSH Urine Color Urine Appearance Urine pH Ur Specific [place] Urine Protein Urine Glucose (UA) Urine Ketones Urine Blood Urine Nitrite Ur Leukocyte Esterase Urine RBC Urine WBC Ur Squamous Epith Cells Urine Bacteria Hyaline Casts Granular Casts Urine Yeast Nasal Screen MRSA (PCR) Nasal S. aureus Screen Nasal MRSA/S.aureus Interp Stool Occult Blood Random Vancomycin Urine Opiates Screen Ur Buprenorphine Scrn Ur Oxycodone Screen Urine Methadone Screen Urine Fentanyl Screen Ur Barbiturates Screen Ur Phencyclidine Scrn Ur Amphetamines Screen U Benzodiazepines Scrn Urine Cocaine Screen U Marijuana (THC) Screen Ethyl Alcohol Hep Bs Antigen Hep Bs Antibody Hep B Core Total Ab Influenza Type A (PCR) Influenza Type B (PCR) RSV RNA Qual (PCR) SARS-CoV-2 RNA (RT-PCR) Blood Type Antibody Screen Crossmatch 09/04/23 09/04/23 09/05/23 04:53 20:46 04:55 WBC RBC Hgb Hct MCV MCH MCHC RDW Plt Count MPV Immature Gran % (Auto) Neut % (Auto) Lymph % (Auto) [place] % (Auto) Eos % (Auto) Baso % (Auto) Lymph # (Auto) [place] # (Auto) Eos # (Auto) Baso # (Auto) Abs Immat Gran (auto) Absolute Neuts (auto) Absolute Nucleated RBC Nucleated RBC % (auto) Neutrophils % (Manual) Band Neutrophils % Lymphocytes % (Manual) Monocytes % (Manual) Eosinophils % (Manual) Basophils % (Manual) Metamyelocytes % Myelocytes % Abs Neuts (Manual) Lymphocytes # (Manual) Monocytes # (Manual) Eosinophils # (Manual) Basophils # (Manual) Metamyelocytes # Myelocytes # Nucleated RBCs Smudge Cells Toxic Granulation Toxic Vacuolation Dohle Bodies Platelet Estimate Large Platelets Plt Morphology Comment RBC Morphology Polychromasia Hypochromasia Basophilic Stippling Microcytosis Macrocytosis Spherocytes Target Cells Tear Drop Cells Ovalocytes Stomatocytes Hernandez-Blakeslee Bodies Pelzer Cells Schistocytes Smear Tech's Comments Smear Path Review Hold Purple Top PT INR O2 Saturation ABG pH at Pt Temp ABG pCO2 at Pt Temp ABG pO2 at Pt Temp ABG HCO3 ABG Base Excess (Actual) VBG pH 7.51 H 7.56 H VBG pCO2 33 28 VBG pO2 97 59 VBG HCO3 26 25 VBG O2 Saturation 98.0 89.0 VBG Base Excess 4.2 4.0 Sodium 139 Potassium 3.2 L Chloride 97 Carbon Dioxide 21 L Anion Gap 24 H BUN 74 H Creatinine 3.49 H Estim Creat Clear Calc 24.9 Estimated GFR 18 POC Glucose Random Glucose 156 H Estimat Average Glucose Hemoglobin A1c % Lactic Acid Lactic Acid F/U @ 2Hr Lactic Acid F/U @ 4Hr Calcium 10.3 H D Phosphorus 5.4 H Magnesium 2.0 Total Bilirubin Direct Bilirubin AST ALT Alkaline Phosphatase Ammonia Total Creatine Kinase Troponin I High Sens B-Natriuretic Peptide Total Protein Albumin Lipase Prostate Specific Ag Procalcitonin TSH Urine Color Urine Appearance Urine pH Ur Specific [place] Urine Protein Urine Glucose (UA) Urine Ketones Urine Blood Urine Nitrite Ur Leukocyte Esterase Urine RBC Urine WBC Ur Squamous Epith Cells Urine Bacteria Hyaline Casts Granular Casts Urine Yeast Nasal Screen MRSA (PCR) Nasal S. aureus Screen Nasal MRSA/S.aureus Interp Stool Occult Blood Random Vancomycin Urine Opiates Screen Ur Buprenorphine Scrn Ur Oxycodone Screen Urine Methadone Screen Urine Fentanyl Screen Ur Barbiturates Screen Ur Phencyclidine Scrn Ur Amphetamines Screen U Benzodiazepines Scrn Urine Cocaine Screen U Marijuana (THC) Screen Ethyl Alcohol Hep Bs Antigen Hep Bs Antibody Hep B Core Total Ab Influenza Type A (PCR) Influenza Type B (PCR) RSV RNA Qual (PCR) SARS-CoV-2 RNA (RT-PCR) Blood Type Antibody Screen Crossmatch 09/05/23 09/05/23 09/06/23 05:13 09:46 04:07 WBC 22.3 H 17.2 H RBC 2.73 L 2.60 L Hgb 7.9 L 7.3 L Hct 24.0 L 22.7 L MCV 87.9 87.3 MCH 28.9 28.1 MCHC 32.9 32.2 RDW 18.6 H 18.5 H Plt Count 523 H 459 H MPV 10.5 10.9 Immature Gran % (Auto) 3.5 H 2.3 H Neut % (Auto) 64.4 63.4 Lymph % (Auto) 15.7 L 16.5 L [place] % (Auto) 7.1 8.3 Eos % (Auto) 8.3 H 8.6 H Baso % (Auto) 1.0 0.9 Lymph # (Auto) 3.5 2.8 [place] # (Auto) 1.6 H 1.4 H Eos # (Auto) 1.9 H 1.5 H Baso # (Auto) 0.2 0.2 Abs Immat Gran (auto) 0.77 H 0.39 H Absolute Neuts (auto) 14.3 H 10.9 H Absolute Nucleated RBC 0.020 H 0.050 H Nucleated RBC % (auto) 0.1 0.3 H Neutrophils % (Manual) Band Neutrophils % Lymphocytes % (Manual) Monocytes % (Manual) Eosinophils % (Manual) Basophils % (Manual) Metamyelocytes % Myelocytes % Abs Neuts (Manual) Lymphocytes # (Manual) Monocytes # (Manual) Eosinophils # (Manual) Basophils # (Manual) Metamyelocytes # Myelocytes # Nucleated RBCs Smudge Cells Toxic Granulation Toxic Vacuolation Dohle Bodies Platelet Estimate Large Platelets Plt Morphology Comment RBC Morphology Polychromasia Hypochromasia Basophilic Stippling Microcytosis Macrocytosis Spherocytes Target Cells Tear Drop Cells Ovalocytes Stomatocytes Hernandez-Blakeslee Bodies Pelzer Cells Schistocytes Smear Tech's Comments VERIFIED Smear Path Review Hold Purple Top PT INR O2 Saturation ABG pH at Pt Temp ABG pCO2 at Pt Temp ABG pO2 at Pt Temp ABG HCO3 ABG Base Excess (Actual) VBG pH VBG pCO2 VBG pO2 VBG HCO3 VBG O2 Saturation VBG Base Excess Sodium 139 139 Potassium 4.1 D 3.2 L D Chloride 97 93 L Carbon Dioxide 22 29 Anion Gap 24 H 20 BUN 94 H 66 H Creatinine 4.14 H* 3.20 H Estim Creat Clear Calc 19.5 25.2 Estimated GFR 15 20 POC Glucose Random Glucose 121 H 105 Estimat Average Glucose Hemoglobin A1c % Lactic Acid Lactic Acid F/U @ 2Hr Lactic Acid F/U @ 4Hr Calcium 11.2 H D 12.4 H D Phosphorus 8.1 H 6.5 H Magnesium 2.2 2.3 Total Bilirubin Direct Bilirubin AST ALT Alkaline Phosphatase Ammonia Total Creatine Kinase Troponin I High Sens B-Natriuretic Peptide Total Protein Albumin 4.0 Lipase Prostate Specific Ag Procalcitonin TSH Urine Color Urine Appearance Urine pH Ur Specific [place] Urine Protein Urine Glucose (UA) Urine Ketones Urine Blood Urine Nitrite Ur Leukocyte Esterase Urine RBC Urine WBC Ur Squamous Epith Cells Urine Bacteria Hyaline Casts Granular Casts Urine Yeast Nasal Screen MRSA (PCR) Nasal S. aureus Screen Nasal MRSA/S.aureus Interp Stool Occult Blood Random Vancomycin Urine Opiates Screen Ur Buprenorphine Scrn Ur Oxycodone Screen Urine Methadone Screen Urine Fentanyl Screen Ur Barbiturates Screen Ur Phencyclidine Scrn Ur Amphetamines Screen U Benzodiazepines Scrn Urine Cocaine Screen U Marijuana (THC) Screen Ethyl Alcohol Hep Bs Antigen Negative Hep Bs Antibody REACTIVE Hep B Core Total Ab Nonreactive Influenza Type A (PCR) Influenza Type B (PCR) RSV RNA Qual (PCR) SARS-CoV-2 RNA (RT-PCR) Blood Type Antibody Screen Crossmatch 09/06/23 09/06/23 09/07/23 04:08 19:06 05:19 WBC 16.3 H RBC 2.64 L Hgb 7.7 L Hct 23.2 L MCV 87.9 MCH 29.2 MCHC 33.2 RDW 18.2 H Plt Count 409 H MPV 10.6 Immature Gran % (Auto) 1.5 H Neut % (Auto) 67.1 Lymph % (Auto) 13.7 L [place] % (Auto) 8.3 Eos % (Auto) 8.2 H Baso % (Auto) 1.2 Lymph # (Auto) 2.2 [place] # (Auto) 1.4 H Eos # (Auto) 1.3 H Baso # (Auto) 0.2 Abs Immat Gran (auto) 0.24 H Absolute Neuts (auto) 11.0 H Absolute Nucleated RBC 0.040 H Nucleated RBC % (auto) 0.2 Neutrophils % (Manual) Band Neutrophils % Lymphocytes % (Manual) Monocytes % (Manual) Eosinophils % (Manual) Basophils % (Manual) Metamyelocytes % Myelocytes % Abs Neuts (Manual) Lymphocytes # (Manual) Monocytes # (Manual) Eosinophils # (Manual) Basophils # (Manual) Metamyelocytes # Myelocytes # Nucleated RBCs Smudge Cells Toxic Granulation Toxic Vacuolation Dohle Bodies Platelet Estimate Large Platelets Plt Morphology Comment RBC Morphology Polychromasia Hypochromasia Basophilic Stippling Microcytosis Macrocytosis Spherocytes Target Cells Tear Drop Cells Ovalocytes Stomatocytes Hernandez-Blakeslee Bodies Hilario Cells Schistocytes Smear Tech's Comments Smear Path Review Hold Purple Top PT INR O2 Saturation ABG pH at Pt Temp ABG pCO2 at Pt Temp ABG pO2 at Pt Temp ABG HCO3 ABG Base Excess (Actual) VBG pH 7.62 H* VBG pCO2 34 VBG pO2 68 VBG HCO3 35 H VBG O2 Saturation 93.0 VBG Base Excess 13.9 Sodium 141 Potassium 2.9 L* Chloride 96 Carbon Dioxide 25 Anion Gap 23 H BUN 76 H Creatinine 3.39 H Estim Creat Clear Calc 23.8 Estimated GFR 19 POC Glucose Random Glucose 98 Estimat Average Glucose Hemoglobin A1c % Lactic Acid Lactic Acid F/U @ 2Hr Lactic Acid F/U @ 4Hr Calcium 13.2 H* D Phosphorus 8.4 H Magnesium 2.3 Total Bilirubin Direct Bilirubin AST ALT Alkaline Phosphatase Ammonia Total Creatine Kinase Troponin I High Sens B-Natriuretic Peptide Total Protein Albumin Lipase Prostate Specific Ag Procalcitonin TSH Urine Color Urine Appearance Urine pH Ur Specific [place] Urine Protein Urine Glucose (UA) Urine Ketones Urine Blood Urine Nitrite Ur Leukocyte Esterase Urine RBC Urine WBC Ur Squamous Epith Cells Urine Bacteria Hyaline Casts Granular Casts Urine Yeast Nasal Screen MRSA (PCR) Nasal S. aureus Screen Nasal MRSA/S.aureus Interp Stool Occult Blood Random Vancomycin Urine Opiates Screen Ur Buprenorphine Scrn Ur Oxycodone Screen Urine Methadone Screen Urine Fentanyl Screen Ur Barbiturates Screen Ur Phencyclidine Scrn Ur Amphetamines Screen U Benzodiazepines Scrn Urine Cocaine Screen U Marijuana (THC) Screen Ethyl Alcohol Hep Bs Antigen Hep Bs Antibody Hep B Core Total Ab Influenza Type A (PCR) Influenza Type B (PCR) RSV RNA Qual (PCR) SARS-CoV-2 RNA (RT-PCR) Blood Type Antibody Screen Crossmatch 09/07/23 09/07/23 09/08/23 05:25 05:31 03:22 WBC RBC Hgb Hct MCV MCH MCHC RDW Plt Count MPV Immature Gran % (Auto) Neut % (Auto) Lymph % (Auto) [place] % (Auto) Eos % (Auto) Baso % (Auto) Lymph # (Auto) [place] # (Auto) Eos # (Auto) Baso # (Auto) Abs Immat Gran (auto) Absolute Neuts (auto) Absolute Nucleated RBC Nucleated RBC % (auto) Neutrophils % (Manual) Band Neutrophils % Lymphocytes % (Manual) Monocytes % (Manual) Eosinophils % (Manual) Basophils % (Manual) Metamyelocytes % Myelocytes % Abs Neuts (Manual) Lymphocytes # (Manual) Monocytes # (Manual) Eosinophils # (Manual) Basophils # (Manual) Metamyelocytes # Myelocytes # Nucleated RBCs Smudge Cells Toxic Granulation Toxic Vacuolation Dohle Bodies Platelet Estimate Large Platelets Plt Morphology Comment RBC Morphology Polychromasia Hypochromasia Basophilic Stippling Microcytosis Macrocytosis Spherocytes Target Cells Tear Drop Cells Ovalocytes Stomatocytes Hernandez-Blakeslee Bodies Pelzer Cells Schistocytes Smear Tech's Comments Smear Path Review Hold Purple Top PT INR O2 Saturation ABG pH at Pt Temp ABG pCO2 at Pt Temp ABG pO2 at Pt Temp ABG HCO3 ABG Base Excess (Actual) VBG pH 7.53 H VBG pCO2 31 VBG pO2 49 VBG HCO3 26 VBG O2 Saturation 80.0 VBG Base Excess 4.3 Sodium 143 Potassium 3.7 D Chloride 100 Carbon Dioxide 23 Anion Gap 24 H BUN 84 H Creatinine 3.79 H Estim Creat Clear Calc 21.3 Estimated GFR 17 POC Glucose Random Glucose 87 Estimat Average Glucose Hemoglobin A1c % Lactic Acid 1.0 Lactic Acid F/U @ 2Hr Lactic Acid F/U @ 4Hr Calcium 13.6 H* Phosphorus 7.7 H Magnesium 2.3 Total Bilirubin Direct Bilirubin AST ALT Alkaline Phosphatase Ammonia Total Creatine Kinase Troponin I High Sens B-Natriuretic Peptide Total Protein Albumin 4.1 Lipase Prostate Specific Ag Procalcitonin TSH Urine Color Urine Appearance Urine pH Ur Specific [place] Urine Protein Urine Glucose (UA) Urine Ketones Urine Blood Urine Nitrite Ur Leukocyte Esterase Urine RBC Urine WBC Ur Squamous Epith Cells Urine Bacteria Hyaline Casts Granular Casts Urine Yeast Nasal Screen MRSA (PCR) Nasal S. aureus Screen Nasal MRSA/S.aureus Interp Stool Occult Blood Random Vancomycin Urine Opiates Screen Ur Buprenorphine Scrn Ur Oxycodone Screen Urine Methadone Screen Urine Fentanyl Screen Ur Barbiturates Screen Ur Phencyclidine Scrn Ur Amphetamines Screen U Benzodiazepines Scrn Urine Cocaine Screen U Marijuana (THC) Screen Ethyl Alcohol Hep Bs Antigen Hep Bs Antibody Hep B Core Total Ab Influenza Type A (PCR) Influenza Type B (PCR) RSV RNA Qual (PCR) SARS-CoV-2 RNA (RT-PCR) Blood Type Antibody Screen Crossmatch 09/08/23 09/08/23 09/08/23 04:10 07:58 08:02 WBC 18.2 H RBC 2.45 L Hgb 7.4 L Hct 21.9 L MCV 89.4 MCH 30.2 MCHC 33.8 RDW 18.6 H Plt Count 331 MPV 10.2 Immature Gran % (Auto) Neut % (Auto) Lymph % (Auto) [place] % (Auto) Eos % (Auto) Baso % (Auto) Lymph # (Auto) [place] # (Auto) Eos # (Auto) Baso # (Auto) Abs Immat Gran (auto) Absolute Neuts (auto) Absolute Nucleated RBC 0.000 Nucleated RBC % (auto) 0.0 Neutrophils % (Manual) Band Neutrophils % Lymphocytes % (Manual) Monocytes % (Manual) Eosinophils % (Manual) Basophils % (Manual) Metamyelocytes % Myelocytes % Abs Neuts (Manual) Lymphocytes # (Manual) Monocytes # (Manual) Eosinophils # (Manual) Basophils # (Manual) Metamyelocytes # Myelocytes # Nucleated RBCs Smudge Cells Toxic Granulation Toxic Vacuolation Dohle Bodies Platelet Estimate Large Platelets Plt Morphology Comment RBC Morphology Polychromasia Hypochromasia Basophilic Stippling Microcytosis Macrocytosis Spherocytes Target Cells Tear Drop Cells Ovalocytes Stomatocytes Hernandez-Blakeslee Bodies Pelzer Cells Schistocytes Smear Tech's Comments Smear Path Review Hold Purple Top PT INR O2 Saturation ABG pH at Pt Temp ABG pCO2 at Pt Temp ABG pO2 at Pt Temp ABG HCO3 ABG Base Excess (Actual) VBG pH VBG pCO2 VBG pO2 VBG HCO3 VBG O2 Saturation VBG Base Excess Sodium 138 Potassium 3.4 Chloride 101 Carbon Dioxide 19 L Anion Gap 21 H BUN 59 H Creatinine 2.87 H Estim Creat Clear Calc 28.1 Estimated GFR 23 POC Glucose 98 Random Glucose 97 Estimat Average Glucose Hemoglobin A1c % Lactic Acid Lactic Acid F/U @ 2Hr Lactic Acid F/U @ 4Hr Calcium 12.3 H D Phosphorus 7.0 H Magnesium 2.1 Total Bilirubin Direct Bilirubin AST ALT Alkaline Phosphatase Ammonia Total Creatine Kinase Troponin I High Sens B-Natriuretic Peptide Total Protein Albumin Lipase Prostate Specific Ag Procalcitonin TSH Urine Color Yellow Urine Appearance Cloudy Urine pH 6.5 Ur Specific [place] 1.015 Urine Protein 100 (2+) H Urine Glucose (UA) Negative Urine Ketones Negative Urine Blood Moderate (2+) H Urine Nitrite Negative Ur Leukocyte Esterase Negative Urine RBC 11-20 H Urine WBC 0-5 Ur Squamous Epith Cells 0-2 Urine Bacteria 4+ Hyaline Casts 3-5 Granular Casts Urine Yeast Nasal Screen MRSA (PCR) Nasal S. aureus Screen Nasal MRSA/S.aureus Interp Stool Occult Blood Random Vancomycin Urine Opiates Screen Ur Buprenorphine Scrn Ur Oxycodone Screen Urine Methadone Screen Urine Fentanyl Screen Ur Barbiturates Screen Ur Phencyclidine Scrn Ur Amphetamines Screen U Benzodiazepines Scrn Urine Cocaine Screen U Marijuana (THC) Screen Ethyl Alcohol Hep Bs Antigen Hep Bs Antibody Hep B Core Total Ab Influenza Type A (PCR) Influenza Type B (PCR) RSV RNA Qual (PCR) SARS-CoV-2 RNA (RT-PCR) Blood Type Antibody Screen Crossmatch 09/08/23 09/08/23 09/08/23 09:24 11:07 12:42 WBC RBC Hgb Hct MCV MCH MCHC RDW Plt Count MPV Immature Gran % (Auto) Neut % (Auto) Lymph % (Auto) [place] % (Auto) Eos % (Auto) Baso % (Auto) Lymph # (Auto) [place] # (Auto) Eos # (Auto) Baso # (Auto) Abs Immat Gran (auto) Absolute Neuts (auto) Absolute Nucleated RBC Nucleated RBC % (auto) Neutrophils % (Manual) Band Neutrophils % Lymphocytes % (Manual) Monocytes % (Manual) Eosinophils % (Manual) Basophils % (Manual) Metamyelocytes % Myelocytes % Abs Neuts (Manual) Lymphocytes # (Manual) Monocytes # (Manual) Eosinophils # (Manual) Basophils # (Manual) Metamyelocytes # Myelocytes # Nucleated RBCs Smudge Cells Toxic Granulation Toxic Vacuolation Dohle Bodies Platelet Estimate Large Platelets Plt Morphology Comment RBC Morphology Polychromasia Hypochromasia Basophilic Stippling Microcytosis Macrocytosis Spherocytes Target Cells Tear Drop Cells Ovalocytes Stomatocytes Hernandez-Blakeslee Bodies Hilario Cells Schistocytes Smear Tech's Comments Smear Path Review Hold Purple Top PT INR O2 Saturation ABG pH at Pt Temp ABG pCO2 at Pt Temp ABG pO2 at Pt Temp ABG HCO3 ABG Base Excess (Actual) VBG pH VBG pCO2 VBG pO2 VBG HCO3 VBG O2 Saturation VBG Base Excess Sodium Potassium Chloride Carbon Dioxide Anion Gap BUN Creatinine Estim Creat Clear Calc Estimated GFR POC Glucose 98 95 95 Random Glucose Estimat Average Glucose Hemoglobin A1c % Lactic Acid Lactic Acid F/U @ 2Hr Lactic Acid F/U @ 4Hr Calcium Phosphorus Magnesium Total Bilirubin Direct Bilirubin AST ALT Alkaline Phosphatase Ammonia Total Creatine Kinase Troponin I High Sens B-Natriuretic Peptide Total Protein Albumin Lipase Prostate Specific Ag Procalcitonin TSH Urine Color Urine Appearance Urine pH Ur Specific [place] Urine Protein Urine Glucose (UA) Urine Ketones Urine Blood Urine Nitrite Ur Leukocyte Esterase Urine RBC Urine WBC Ur Squamous Epith Cells Urine Bacteria Hyaline Casts Granular Casts Urine Yeast Nasal Screen MRSA (PCR) Nasal S. aureus Screen Nasal MRSA/S.aureus Interp Stool Occult Blood Random Vancomycin Urine Opiates Screen Ur Buprenorphine Scrn Ur Oxycodone Screen Urine Methadone Screen Urine Fentanyl Screen Ur Barbiturates Screen Ur Phencyclidine Scrn Ur Amphetamines Screen U Benzodiazepines Scrn Urine Cocaine Screen U Marijuana (THC) Screen Ethyl Alcohol Hep Bs Antigen Hep Bs Antibody Hep B Core Total Ab Influenza Type A (PCR) Influenza Type B (PCR) RSV RNA Qual (PCR) SARS-CoV-2 RNA (RT-PCR) Blood Type Antibody Screen Crossmatch 09/08/23 09/08/23 09/08/23 13:50 16:43 18:30 WBC RBC Hgb Hct MCV MCH MCHC RDW Plt Count MPV Immature Gran % (Auto) Neut % (Auto) Lymph % (Auto) [place] % (Auto) Eos % (Auto) Baso % (Auto) Lymph # (Auto) [place] # (Auto) Eos # (Auto) Baso # (Auto) Abs Immat Gran (auto) Absolute Neuts (auto) Absolute Nucleated RBC Nucleated RBC % (auto) Neutrophils % (Manual) Band Neutrophils % Lymphocytes % (Manual) Monocytes % (Manual) Eosinophils % (Manual) Basophils % (Manual) Metamyelocytes % Myelocytes % Abs Neuts (Manual) Lymphocytes # (Manual) Monocytes # (Manual) Eosinophils # (Manual) Basophils # (Manual) Metamyelocytes # Myelocytes # Nucleated RBCs Smudge Cells Toxic Granulation Toxic Vacuolation Dohle Bodies Platelet Estimate Large Platelets Plt Morphology Comment RBC Morphology Polychromasia Hypochromasia Basophilic Stippling Microcytosis Macrocytosis Spherocytes Target Cells Tear Drop Cells Ovalocytes Stomatocytes Hernandez-Blakeslee Bodies Hilario Cells Schistocytes Smear Tech's Comments Smear Path Review Hold Purple Top PT INR O2 Saturation ABG pH at Pt Temp ABG pCO2 at Pt Temp ABG pO2 at Pt Temp ABG HCO3 ABG Base Excess (Actual) VBG pH VBG pCO2 VBG pO2 VBG HCO3 VBG O2 Saturation VBG Base Excess Sodium Potassium Chloride Carbon Dioxide Anion Gap BUN Creatinine Estim Creat Clear Calc Estimated GFR POC Glucose 98 91 94 Random Glucose Estimat Average Glucose Hemoglobin A1c % Lactic Acid Lactic Acid F/U @ 2Hr Lactic Acid F/U @ 4Hr Calcium Phosphorus Magnesium Total Bilirubin Direct Bilirubin AST ALT Alkaline Phosphatase Ammonia Total Creatine Kinase Troponin I High Sens B-Natriuretic Peptide Total Protein Albumin Lipase Prostate Specific Ag Procalcitonin TSH Urine Color Urine Appearance Urine pH Ur Specific [place] Urine Protein Urine Glucose (UA) Urine Ketones Urine Blood Urine Nitrite Ur Leukocyte Esterase Urine RBC Urine WBC Ur Squamous Epith Cells Urine Bacteria Hyaline Casts Granular Casts Urine Yeast Nasal Screen MRSA (PCR) Nasal S. aureus Screen Nasal MRSA/S.aureus Interp Stool Occult Blood Random Vancomycin Urine Opiates Screen Ur Buprenorphine Scrn Ur Oxycodone Screen Urine Methadone Screen Urine Fentanyl Screen Ur Barbiturates Screen Ur Phencyclidine Scrn Ur Amphetamines Screen U Benzodiazepines Scrn Urine Cocaine Screen U Marijuana (THC) Screen Ethyl Alcohol Hep Bs Antigen Hep Bs Antibody Hep B Core Total Ab Influenza Type A (PCR) Influenza Type B (PCR) RSV RNA Qual (PCR) SARS-CoV-2 RNA (RT-PCR) Blood Type Antibody Screen Crossmatch 09/08/23 09/08/23 09/08/23 20:56 23:49 23:55 WBC RBC Hgb Hct MCV MCH MCHC RDW Plt Count MPV Immature Gran % (Auto) Neut % (Auto) Lymph % (Auto) [place] % (Auto) Eos % (Auto) Baso % (Auto) Lymph # (Auto) [place] # (Auto) Eos # (Auto) Baso # (Auto) Abs Immat Gran (auto) Absolute Neuts (auto) Absolute Nucleated RBC Nucleated RBC % (auto) Neutrophils % (Manual) Band Neutrophils % Lymphocytes % (Manual) Monocytes % (Manual) Eosinophils % (Manual) Basophils % (Manual) Metamyelocytes % Myelocytes % Abs Neuts (Manual) Lymphocytes # (Manual) Monocytes # (Manual) Eosinophils # (Manual) Basophils # (Manual) Metamyelocytes # Myelocytes # Nucleated RBCs Smudge Cells Toxic Granulation Toxic Vacuolation Dohle Bodies Platelet Estimate Large Platelets Plt Morphology Comment RBC Morphology Polychromasia Hypochromasia Basophilic Stippling Microcytosis Macrocytosis Spherocytes Target Cells Tear Drop Cells Ovalocytes Stomatocytes Hernandez-Blakeslee Bodies Pelzer Cells Schistocytes Smear Tech's Comments Smear Path Review Hold Purple Top PT INR O2 Saturation ABG pH at Pt Temp ABG pCO2 at Pt Temp ABG pO2 at Pt Temp ABG HCO3 ABG Base Excess (Actual) VBG pH 7.54 H VBG pCO2 23 VBG pO2 107 VBG HCO3 20 L VBG O2 Saturation 99.0 VBG Base Excess -0.7 Sodium Potassium Chloride Carbon Dioxide Anion Gap BUN Creatinine Estim Creat Clear Calc Estimated GFR POC Glucose 91 Random Glucose Estimat Average Glucose Hemoglobin A1c % Lactic Acid Lactic Acid F/U @ 2Hr Lactic Acid F/U @ 4Hr Calcium Phosphorus Magnesium Total Bilirubin Direct Bilirubin AST ALT Alkaline Phosphatase Ammonia Total Creatine Kinase Troponin I High Sens B-Natriuretic Peptide 127 H Total Protein Albumin Lipase Prostate Specific Ag Procalcitonin TSH Urine Color Urine Appearance Urine pH Ur Specific [place] Urine Protein Urine Glucose (UA) Urine Ketones Urine Blood Urine Nitrite Ur Leukocyte Esterase Urine RBC Urine WBC Ur Squamous Epith Cells Urine Bacteria Hyaline Casts Granular Casts Urine Yeast Nasal Screen MRSA (PCR) Nasal S. aureus Screen Nasal MRSA/S.aureus Interp Stool Occult Blood Random Vancomycin Urine Opiates Screen Ur Buprenorphine Scrn Ur Oxycodone Screen Urine Methadone Screen Urine Fentanyl Screen Ur Barbiturates Screen Ur Phencyclidine Scrn Ur Amphetamines Screen U Benzodiazepines Scrn Urine Cocaine Screen U Marijuana (THC) Screen Ethyl Alcohol Hep Bs Antigen Hep Bs Antibody Hep B Core Total Ab Influenza Type A (PCR) Influenza Type B (PCR) RSV RNA Qual (PCR) SARS-CoV-2 RNA (RT-PCR) Blood Type Antibody Screen Crossmatch 09/09/23 09/09/23 09/09/23 02:46 05:22 06:20 WBC 18.0 H RBC 2.63 L Hgb 7.7 L Hct 23.3 L MCV 88.6 MCH 29.3 MCHC 33.0 RDW 19.6 H Plt Count 354 MPV 10.4 Immature Gran % (Auto) 3.5 H Neut % (Auto) 64.7 Lymph % (Auto) 13.6 L [place] % (Auto) 10.2 Eos % (Auto) 6.8 H Baso % (Auto) 1.2 Lymph # (Auto) 2.5 [place] # (Auto) 1.8 H Eos # (Auto) 1.2 H Baso # (Auto) 0.2 Abs Immat Gran (auto) 0.63 H Absolute Neuts (auto) 11.6 H Absolute Nucleated RBC 0.000 Nucleated RBC % (auto) 0.0 Neutrophils % (Manual) Band Neutrophils % Lymphocytes % (Manual) Monocytes % (Manual) Eosinophils % (Manual) Basophils % (Manual) Metamyelocytes % Myelocytes % Abs Neuts (Manual) Lymphocytes # (Manual) Monocytes # (Manual) Eosinophils # (Manual) Basophils # (Manual) Metamyelocytes # Myelocytes # Nucleated RBCs Smudge Cells Toxic Granulation Toxic Vacuolation Dohle Bodies Platelet Estimate Large Platelets Plt Morphology Comment RBC Morphology Polychromasia Hypochromasia Basophilic Stippling Microcytosis Macrocytosis Spherocytes Target Cells Tear Drop Cells Ovalocytes Stomatocytes Hernnadez-Blakeslee Bodies Hilario Cells Schistocytes Smear Tech's Comments VERIFIED Smear Path Review Hold Purple Top SEE NOTE PT INR O2 Saturation ABG pH at Pt Temp ABG pCO2 at Pt Temp ABG pO2 at Pt Temp ABG HCO3 ABG Base Excess (Actual) VBG pH VBG pCO2 VBG pO2 VBG HCO3 VBG O2 Saturation VBG Base Excess Sodium 143 Potassium 3.5 Chloride 105 Carbon Dioxide 20 L Anion Gap 22 H BUN 78 H Creatinine 3.18 H Estim Creat Clear Calc 25.3 Estimated GFR 20 POC Glucose 106 Random Glucose 98 Estimat Average Glucose Hemoglobin A1c % Lactic Acid Lactic Acid F/U @ 2Hr Lactic Acid F/U @ 4Hr Calcium 12.7 H* Phosphorus Magnesium Total Bilirubin Direct Bilirubin AST ALT Alkaline Phosphatase Ammonia Total Creatine Kinase Troponin I High Sens B-Natriuretic Peptide Total Protein Albumin Lipase Prostate Specific Ag Procalcitonin TSH Urine Color Urine Appearance Urine pH Ur Specific [place] Urine Protein Urine Glucose (UA) Urine Ketones Urine Blood Urine Nitrite Ur Leukocyte Esterase Urine RBC Urine WBC Ur Squamous Epith Cells Urine Bacteria Hyaline Casts Granular Casts Urine Yeast Nasal Screen MRSA (PCR) Nasal S. aureus Screen Nasal MRSA/S.aureus Interp Stool Occult Blood Random Vancomycin Urine Opiates Screen Ur Buprenorphine Scrn Ur Oxycodone Screen Urine Methadone Screen Urine Fentanyl Screen Ur Barbiturates Screen Ur Phencyclidine Scrn Ur Amphetamines Screen U Benzodiazepines Scrn Urine Cocaine Screen U Marijuana (THC) Screen Ethyl Alcohol Hep Bs Antigen Hep Bs Antibody Hep B Core Total Ab Influenza Type A (PCR) Influenza Type B (PCR) RSV RNA Qual (PCR) SARS-CoV-2 RNA (RT-PCR) Blood Type Antibody Screen Crossmatch 09/09/23 09/09/23 09/09/23 10:17 11:24 16:05 WBC RBC Hgb Hct MCV MCH MCHC RDW Plt Count MPV Immature Gran % (Auto) Neut % (Auto) Lymph % (Auto) [place] % (Auto) Eos % (Auto) Baso % (Auto) Lymph # (Auto) [place] # (Auto) Eos # (Auto) Baso # (Auto) Abs Immat Gran (auto) Absolute Neuts (auto) Absolute Nucleated RBC Nucleated RBC % (auto) Neutrophils % (Manual) Band Neutrophils % Lymphocytes % (Manual) Monocytes % (Manual) Eosinophils % (Manual) Basophils % (Manual) Metamyelocytes % Myelocytes % Abs Neuts (Manual) Lymphocytes # (Manual) Monocytes # (Manual) Eosinophils # (Manual) Basophils # (Manual) Metamyelocytes # Myelocytes # Nucleated RBCs Smudge Cells Toxic Granulation Toxic Vacuolation Dohle Bodies Platelet Estimate Large Platelets Plt Morphology Comment RBC Morphology Polychromasia Hypochromasia Basophilic Stippling Microcytosis Macrocytosis Spherocytes Target Cells Tear Drop Cells Ovalocytes Stomatocytes Hernandez-Blakeslee Bodies Pelzer Cells Schistocytes Smear Tech's Comments Smear Path Review Hold Purple Top PT INR O2 Saturation 98.0 ABG pH at Pt Temp 7.50 H ABG pCO2 at Pt Temp 23 L ABG pO2 at Pt Temp 99 ABG HCO3 18 L ABG Base Excess (Actual) -2.7 VBG pH VBG pCO2 VBG pO2 VBG HCO3 VBG O2 Saturation VBG Base Excess Sodium Potassium Chloride Carbon Dioxide Anion Gap BUN Creatinine Estim Creat Clear Calc Estimated GFR POC Glucose 135 H 119 H Random Glucose Estimat Average Glucose Hemoglobin A1c % Lactic Acid Lactic Acid F/U @ 2Hr Lactic Acid F/U @ 4Hr Calcium Phosphorus Magnesium Total Bilirubin Direct Bilirubin AST ALT Alkaline Phosphatase Ammonia Total Creatine Kinase Troponin I High Sens B-Natriuretic Peptide Total Protein Albumin Lipase Prostate Specific Ag Procalcitonin TSH Urine Color Urine Appearance Urine pH Ur Specific [place] Urine Protein Urine Glucose (UA) Urine Ketones Urine Blood Urine Nitrite Ur Leukocyte Esterase Urine RBC Urine WBC Ur Squamous Epith Cells Urine Bacteria Hyaline Casts Granular Casts Urine Yeast Nasal Screen MRSA (PCR) Nasal S. aureus Screen Nasal MRSA/S.aureus Interp Stool Occult Blood Random Vancomycin Urine Opiates Screen Ur Buprenorphine Scrn Ur Oxycodone Screen Urine Methadone Screen Urine Fentanyl Screen Ur Barbiturates Screen Ur Phencyclidine Scrn Ur Amphetamines Screen U Benzodiazepines Scrn Urine Cocaine Screen U Marijuana (THC) Screen Ethyl Alcohol Hep Bs Antigen Hep Bs Antibody Hep B Core Total Ab Influenza Type A (PCR) Influenza Type B (PCR) RSV RNA Qual (PCR) SARS-CoV-2 RNA (RT-PCR) Blood Type Antibody Screen Crossmatch 09/09/23 09/10/23 09/10/23 20:59 06:09 06:43 WBC RBC Hgb Hct MCV MCH MCHC RDW Plt Count MPV Immature Gran % (Auto) Neut % (Auto) Lymph % (Auto) [place] % (Auto) Eos % (Auto) Baso % (Auto) Lymph # (Auto) [place] # (Auto) Eos # (Auto) Baso # (Auto) Abs Immat Gran (auto) Absolute Neuts (auto) Absolute Nucleated RBC Nucleated RBC % (auto) Neutrophils % (Manual) Band Neutrophils % Lymphocytes % (Manual) Monocytes % (Manual) Eosinophils % (Manual) Basophils % (Manual) Metamyelocytes % Myelocytes % Abs Neuts (Manual) Lymphocytes # (Manual) Monocytes # (Manual) Eosinophils # (Manual) Basophils # (Manual) Metamyelocytes # Myelocytes # Nucleated RBCs Smudge Cells Toxic Granulation Toxic Vacuolation Dohle Bodies Platelet Estimate Large Platelets Plt Morphology Comment RBC Morphology Polychromasia Hypochromasia Basophilic Stippling Microcytosis Macrocytosis Spherocytes Target Cells Tear Drop Cells Ovalocytes Stomatocytes Hernandez-Blakeslee Bodies Pelzer Cells Schistocytes Smear Tech's Comments Smear Path Review Hold Purple Top PT INR O2 Saturation ABG pH at Pt Temp ABG pCO2 at Pt Temp ABG pO2 at Pt Temp ABG HCO3 ABG Base Excess (Actual) VBG pH VBG pCO2 VBG pO2 VBG HCO3 VBG O2 Saturation VBG Base Excess Sodium 135 Potassium 4.7 D Chloride 96 Carbon Dioxide 15 L Anion Gap 29 H BUN Creatinine 3.71 H Estim Creat Clear Calc 21.7 Estimated GFR 17 POC Glucose 114 135 H Random Glucose Estimat Average Glucose Hemoglobin A1c % Lactic Acid Lactic Acid F/U @ 2Hr Lactic Acid F/U @ 4Hr Calcium Phosphorus Magnesium Total Bilirubin Direct Bilirubin AST ALT Alkaline Phosphatase Ammonia Total Creatine Kinase Troponin I High Sens B-Natriuretic Peptide Total Protein Albumin Lipase Prostate Specific Ag Procalcitonin TSH Urine Color Urine Appearance Urine pH Ur Specific [place] Urine Protein Urine Glucose (UA) Urine Ketones Urine Blood Urine Nitrite Ur Leukocyte Esterase Urine RBC Urine WBC Ur Squamous Epith Cells Urine Bacteria Hyaline Casts Granular Casts Urine Yeast Nasal Screen MRSA (PCR) Nasal S. aureus Screen Nasal MRSA/S.aureus Interp Stool Occult Blood Random Vancomycin Urine Opiates Screen Ur Buprenorphine Scrn Ur Oxycodone Screen Urine Methadone Screen Urine Fentanyl Screen Ur Barbiturates Screen Ur Phencyclidine Scrn Ur Amphetamines Screen U Benzodiazepines Scrn Urine Cocaine Screen U Marijuana (THC) Screen Ethyl Alcohol Hep Bs Antigen Hep Bs Antibody Hep B Core Total Ab Influenza Type A (PCR) Influenza Type B (PCR) RSV RNA Qual (PCR) SARS-CoV-2 RNA (RT-PCR) Blood Type Antibody Screen Crossmatch 06/06/24 06/06/24 06/06/24 07:49 08:27 08:47 WBC 27.3 H RBC 3.27 L D Hgb 9.7 L D Hct 29.2 L D MCV 89.3 MCH 29.7 MCHC 33.2 RDW 19.7 H Plt Count 444 H D MPV 10.3 Immature Gran % (Auto) Neut % (Auto) Lymph % (Auto) [place] % (Auto) Eos % (Auto) Baso % (Auto) Lymph # (Auto) [place] # (Auto) Eos # (Auto) Baso # (Auto) Abs Immat Gran (auto) Absolute Neuts (auto) Absolute Nucleated RBC 0.080 H Nucleated RBC % (auto) 0.3 H Neutrophils % (Manual) Band Neutrophils % Lymphocytes % (Manual) Monocytes % (Manual) Eosinophils % (Manual) Basophils % (Manual) Metamyelocytes % Myelocytes % Abs Neuts (Manual) Lymphocytes # (Manual) Monocytes # (Manual) Eosinophils # (Manual) Basophils # (Manual) Metamyelocytes # Myelocytes # Nucleated RBCs Smudge Cells Toxic Granulation Toxic Vacuolation Dohle Bodies Platelet Estimate Large Platelets Plt Morphology Comment RBC Morphology Polychromasia Hypochromasia Basophilic Stippling Microcytosis Macrocytosis Spherocytes Target Cells Tear Drop Cells Ovalocytes Stomatocytes Hernandez-Blakeslee Bodies Hilario Cells Schistocytes Smear Tech's Comments Smear Path Review Hold Purple Top PT INR O2 Saturation 94.0 ABG pH at Pt Temp 7.46 H ABG pCO2 at Pt Temp 20 L* ABG pO2 at Pt Temp 80 L ABG HCO3 15 L ABG Base Excess (Actual) -6.5 VBG pH VBG pCO2 VBG pO2 VBG HCO3 VBG O2 Saturation VBG Base Excess Sodium Potassium Chloride Carbon Dioxide Anion Gap BUN Creatinine Estim Creat Clear Calc Estimated GFR POC Glucose 162 H Random Glucose Estimat Average Glucose Hemoglobin A1c % Lactic Acid Lactic Acid F/U @ 2Hr Lactic Acid F/U @ 4Hr Calcium Phosphorus Magnesium Total Bilirubin Direct Bilirubin AST ALT Alkaline Phosphatase Ammonia Total Creatine Kinase Troponin I High Sens B-Natriuretic Peptide Total Protein Albumin Lipase Prostate Specific Ag Procalcitonin TSH Urine Color Urine Appearance Urine pH Ur Specific [place] Urine Protein Urine Glucose (UA) Urine Ketones Urine Blood Urine Nitrite Ur Leukocyte Esterase Urine RBC Urine WBC Ur Squamous Epith Cells Urine Bacteria Hyaline Casts Granular Casts Urine Yeast Nasal Screen MRSA (PCR) Nasal S. aureus Screen Nasal MRSA/S.aureus Interp Stool Occult Blood Random Vancomycin Urine Opiates Screen Ur Buprenorphine Scrn Ur Oxycodone Screen Urine Methadone Screen Urine Fentanyl Screen Ur Barbiturates Screen Ur Phencyclidine Scrn Ur Amphetamines Screen U Benzodiazepines Scrn Urine Cocaine Screen U Marijuana (THC) Screen Ethyl Alcohol Hep Bs Antigen Hep Bs Antibody Hep B Core Total Ab Influenza Type A (PCR) Influenza Type B (PCR) RSV RNA Qual (PCR) SARS-CoV-2 RNA (RT-PCR) Blood Type Antibody Screen Crossmatch 09/10/23 09/10/23 09/10/23 11:00 12:56 16:30 WBC RBC Hgb Hct MCV MCH MCHC RDW Plt Count MPV Immature Gran % (Auto) Neut % (Auto) Lymph % (Auto) [place] % (Auto) Eos % (Auto) Baso % (Auto) Lymph # (Auto) [place] # (Auto) Eos # (Auto) Baso # (Auto) Abs Immat Gran (auto) Absolute Neuts (auto) Absolute Nucleated RBC Nucleated RBC % (auto) Neutrophils % (Manual) Band Neutrophils % Lymphocytes % (Manual) Monocytes % (Manual) Eosinophils % (Manual) Basophils % (Manual) Metamyelocytes % Myelocytes % Abs Neuts (Manual) Lymphocytes # (Manual) Monocytes # (Manual) Eosinophils # (Manual) Basophils # (Manual) Metamyelocytes # Myelocytes # Nucleated RBCs Smudge Cells Toxic Granulation Toxic Vacuolation Dohle Bodies Platelet Estimate Large Platelets Plt Morphology Comment RBC Morphology Polychromasia Hypochromasia Basophilic Stippling Microcytosis Macrocytosis Spherocytes Target Cells Tear Drop Cells Ovalocytes Stomatocytes Hernandez-Blakeslee Bodies Pelzer Cells Schistocytes Smear Tech's Comments Smear Path Review Hold Purple Top PT INR O2 Saturation ABG pH at Pt Temp ABG pCO2 at Pt Temp ABG pO2 at Pt Temp ABG HCO3 ABG Base Excess (Actual) VBG pH VBG pCO2 VBG pO2 VBG HCO3 VBG O2 Saturation VBG Base Excess Sodium Potassium Chloride Carbon Dioxide Anion Gap BUN Creatinine Estim Creat Clear Calc Estimated GFR POC Glucose 124 H 128 H Random Glucose Estimat Average Glucose Hemoglobin A1c % Lactic Acid Lactic Acid F/U @ 2Hr Lactic Acid F/U @ 4Hr Calcium Phosphorus Magnesium Total Bilirubin Direct Bilirubin AST ALT Alkaline Phosphatase Ammonia Total Creatine Kinase Troponin I High Sens B-Natriuretic Peptide Total Protein Albumin Lipase Prostate Specific Ag Procalcitonin TSH Urine Color Urine Appearance Urine pH Ur Specific [place] Urine Protein Urine Glucose (UA) Urine Ketones Urine Blood Urine Nitrite Ur Leukocyte Esterase Urine RBC Urine WBC Ur Squamous Epith Cells Urine Bacteria Hyaline Casts Granular Casts Urine Yeast Nasal Screen MRSA (PCR) Nasal S. aureus Screen Nasal MRSA/S.aureus Interp Stool Occult Blood Random Vancomycin 35.3 H* Urine Opiates Screen Ur Buprenorphine Scrn Ur Oxycodone Screen Urine Methadone Screen Urine Fentanyl Screen Ur Barbiturates Screen Ur Phencyclidine Scrn Ur Amphetamines Screen U Benzodiazepines Scrn Urine Cocaine Screen U Marijuana (THC) Screen Ethyl Alcohol Hep Bs Antigen Hep Bs Antibody Hep B Core Total Ab Influenza Type A (PCR) Influenza Type B (PCR) RSV RNA Qual (PCR) SARS-CoV-2 RNA (RT-PCR) Blood Type Antibody Screen Crossmatch 09/10/23 09/11/23 09/11/23 21:10 02:09 06:25 WBC RBC Hgb Hct MCV MCH MCHC RDW Plt Count MPV Immature Gran % (Auto) Neut % (Auto) Lymph % (Auto) [place] % (Auto) Eos % (Auto) Baso % (Auto) Lymph # (Auto) [place] # (Auto) Eos # (Auto) Baso # (Auto) Abs Immat Gran (auto) Absolute Neuts (auto) Absolute Nucleated RBC Nucleated RBC % (auto) Neutrophils % (Manual) Band Neutrophils % Lymphocytes % (Manual) Monocytes % (Manual) Eosinophils % (Manual) Basophils % (Manual) Metamyelocytes % Myelocytes % Abs Neuts (Manual) Lymphocytes # (Manual) Monocytes # (Manual) Eosinophils # (Manual) Basophils # (Manual) Metamyelocytes # Myelocytes # Nucleated RBCs Smudge Cells Toxic Granulation Toxic Vacuolation Dohle Bodies Platelet Estimate Large Platelets Plt Morphology Comment RBC Morphology Polychromasia Hypochromasia Basophilic Stippling Microcytosis Macrocytosis Spherocytes Target Cells Tear Drop Cells Ovalocytes Stomatocytes Hernandez-Blakeslee Bodies Pelzer Cells Schistocytes Smear Tech's Comments Smear Path Review Hold Purple Top PT INR O2 Saturation ABG pH at Pt Temp ABG pCO2 at Pt Temp ABG pO2 at Pt Temp ABG HCO3 ABG Base Excess (Actual) VBG pH VBG pCO2 VBG pO2 VBG HCO3 VBG O2 Saturation VBG Base Excess Sodium Potassium Chloride Carbon Dioxide Anion Gap BUN Creatinine Estim Creat Clear Calc Estimated GFR POC Glucose 129 H 130 H 143 H Random Glucose Estimat Average Glucose Hemoglobin A1c % Lactic Acid Lactic Acid F/U @ 2Hr Lactic Acid F/U @ 4Hr Calcium Phosphorus Magnesium Total Bilirubin Direct Bilirubin AST ALT Alkaline Phosphatase Ammonia Total Creatine Kinase Troponin I High Sens B-Natriuretic Peptide Total Protein Albumin Lipase Prostate Specific Ag Procalcitonin TSH Urine Color Urine Appearance Urine pH Ur Specific [place] Urine Protein Urine Glucose (UA) Urine Ketones Urine Blood Urine Nitrite Ur Leukocyte Esterase Urine RBC Urine WBC Ur Squamous Epith Cells Urine Bacteria Hyaline Casts Granular Casts Urine Yeast Nasal Screen MRSA (PCR) Nasal S. aureus Screen Nasal MRSA/S.aureus Interp Stool Occult Blood Random Vancomycin Urine Opiates Screen Ur Buprenorphine Scrn Ur Oxycodone Screen Urine Methadone Screen Urine Fentanyl Screen Ur Barbiturates Screen Ur Phencyclidine Scrn Ur Amphetamines Screen U Benzodiazepines Scrn Urine Cocaine Screen U Marijuana (THC) Screen Ethyl Alcohol Hep Bs Antigen Hep Bs Antibody Hep B Core Total Ab Influenza Type A (PCR) Influenza Type B (PCR) RSV RNA Qual (PCR) SARS-CoV-2 RNA (RT-PCR) Blood Type Antibody Screen Crossmatch 09/11/23 09/11/23 09/11/23 09:04 12:39 13:05 WBC 32.1 H* RBC 3.12 L Hgb 9.5 L Hct 28.4 L MCV 91.0 MCH 30.4 MCHC 33.5 RDW 20.8 H Plt Count 427 H MPV 10.9 Immature Gran % (Auto) Neut % (Auto) Lymph % (Auto) [place] % (Auto) Eos % (Auto) Baso % (Auto) Lymph # (Auto) [place] # (Auto) Eos # (Auto) Baso # (Auto) Abs Immat Gran (auto) Absolute Neuts (auto) Absolute Nucleated RBC 0.140 H Nucleated RBC % (auto) 0.4 H Neutrophils % (Manual) Band Neutrophils % Lymphocytes % (Manual) Monocytes % (Manual) Eosinophils % (Manual) Basophils % (Manual) Metamyelocytes % Myelocytes % Abs Neuts (Manual) Lymphocytes # (Manual) Monocytes # (Manual) Eosinophils # (Manual) Basophils # (Manual) Metamyelocytes # Myelocytes # Nucleated RBCs Smudge Cells Toxic Granulation Toxic Vacuolation Dohle Bodies Platelet Estimate Large Platelets Plt Morphology Comment RBC Morphology Polychromasia Hypochromasia Basophilic Stippling Microcytosis Macrocytosis Spherocytes Target Cells Tear Drop Cells Ovalocytes Stomatocytes Hernandez-Blakeslee Bodies Pelzer Cells Schistocytes Smear Tech's Comments Smear Path Review Hold Purple Top PT INR O2 Saturation ABG pH at Pt Temp ABG pCO2 at Pt Temp ABG pO2 at Pt Temp ABG HCO3 ABG Base Excess (Actual) VBG pH VBG pCO2 VBG pO2 VBG HCO3 VBG O2 Saturation VBG Base Excess Sodium 138 Potassium 5.3 H Chloride 98 Carbon Dioxide 16 L Anion Gap 29 H BUN 141 H Creatinine 6.15 H* Estim Creat Clear Calc 13.1 Estimated GFR 10 POC Glucose 153 H 148 H Random Glucose 155 H Estimat Average Glucose Hemoglobin A1c % Lactic Acid Lactic Acid F/U @ 2Hr Lactic Acid F/U @ 4Hr Calcium 10.7 H D Phosphorus Magnesium Total Bilirubin Direct Bilirubin AST ALT Alkaline Phosphatase Ammonia Total Creatine Kinase Troponin I High Sens B-Natriuretic Peptide Total Protein Albumin Lipase Prostate Specific Ag Procalcitonin TSH Urine Color Urine Appearance Urine pH Ur Specific [place] Urine Protein Urine Glucose (UA) Urine Ketones Urine Blood Urine Nitrite Ur Leukocyte Esterase Urine RBC Urine WBC Ur Squamous Epith Cells Urine Bacteria Hyaline Casts Granular Casts Urine Yeast Nasal Screen MRSA (PCR) Nasal S. aureus Screen Nasal MRSA/S.aureus Interp Stool Occult Blood Random Vancomycin Urine Opiates Screen Ur Buprenorphine Scrn Ur Oxycodone Screen Urine Methadone Screen Urine Fentanyl Screen Ur Barbiturates Screen Ur Phencyclidine Scrn Ur Amphetamines Screen U Benzodiazepines Scrn Urine Cocaine Screen U Marijuana (THC) Screen Ethyl Alcohol Hep Bs Antigen Hep Bs Antibody Hep B Core Total Ab Influenza Type A (PCR) Influenza Type B (PCR) RSV RNA Qual (PCR) SARS-CoV-2 RNA (RT-PCR) Blood Type Antibody Screen Crossmatch 09/11/23 09/11/23 09/11/23 13:21 16:22 23:09 WBC 32.3 H* RBC 3.26 L Hgb 9.7 L Hct 29.4 L MCV 90.2 MCH 29.8 MCHC 33.0 RDW 21.2 H Plt Count 393 MPV 10.8 Immature Gran % (Auto) Cancelled Neut % (Auto) Cancelled Lymph % (Auto) Cancelled [place] % (Auto) Cancelled Eos % (Auto) Cancelled Baso % (Auto) Cancelled Lymph # (Auto) Cancelled [place] # (Auto) Cancelled Eos # (Auto) Cancelled Baso # (Auto) Cancelled Abs Immat Gran (auto) Cancelled Absolute Neuts (auto) Cancelled Absolute Nucleated RBC 0.190 H Nucleated RBC % (auto) 0.6 H Neutrophils % (Manual) 80 H Band Neutrophils % 5 Lymphocytes % (Manual) 4 L Monocytes % (Manual) 4 Eosinophils % (Manual) 3 Basophils % (Manual) Metamyelocytes % 2 Myelocytes % 2 Abs Neuts (Manual) 27.5 H Lymphocytes # (Manual) 1.3 Monocytes # (Manual) 1.3 H Eosinophils # (Manual) 1.0 H Basophils # (Manual) Metamyelocytes # 0.6 Myelocytes # 0.6 Nucleated RBCs Smudge Cells Toxic Granulation Toxic Vacuolation PRESENT Dohle Bodies Platelet Estimate NORMAL Large Platelets Plt Morphology Comment NORM RBC Morphology NOTED Polychromasia 1+ (0-2) Hypochromasia Basophilic Stippling Microcytosis 1+ (5-14) Macrocytosis Spherocytes 1+ (0-2) Target Cells Tear Drop Cells 1+ (0-2) Ovalocytes Stomatocytes Hernandez-Blakeslee Bodies Pelzer Cells Schistocytes 1+ (0-2) Smear Tech's Comments Smear Path Review Hold Purple Top PT INR O2 Saturation 100.0 ABG pH at Pt Temp 7.29 L ABG pCO2 at Pt Temp 25 L ABG pO2 at Pt Temp 481 H ABG HCO3 12 L ABG Base Excess (Actual) -12.0 VBG pH VBG pCO2 VBG pO2 VBG HCO3 VBG O2 Saturation VBG Base Excess Sodium 136 Potassium 4.9 Chloride 98 Carbon Dioxide 10 L* D Anion Gap 33 H BUN 143 H Creatinine 5.70 H* Estim Creat Clear Calc 14.1 Estimated GFR 10 POC Glucose 126 H Random Glucose 155 H Estimat Average Glucose Hemoglobin A1c % Lactic Acid Lactic Acid F/U @ 2Hr Lactic Acid F/U @ 4Hr Calcium 9.9 D Phosphorus Magnesium Total Bilirubin 0.5 Direct Bilirubin AST 44 H ALT 25 Alkaline Phosphatase 92 Ammonia Total Creatine Kinase Troponin I High Sens B-Natriuretic Peptide Total Protein 9.4 H Albumin 4.1 Lipase Prostate Specific Ag Procalcitonin TSH Urine Color Urine Appearance Urine pH Ur Specific [place] Urine Protein Urine Glucose (UA) Urine Ketones Urine Blood Urine Nitrite Ur Leukocyte Esterase Urine RBC Urine WBC Ur Squamous Epith Cells Urine Bacteria Hyaline Casts Granular Casts Urine Yeast Nasal Screen MRSA (PCR) Nasal S. aureus Screen Nasal MRSA/S.aureus Interp Stool Occult Blood Random Vancomycin Urine Opiates Screen Ur Buprenorphine Scrn Ur Oxycodone Screen Urine Methadone Screen Urine Fentanyl Screen Ur Barbiturates Screen Ur Phencyclidine Scrn Ur Amphetamines Screen U Benzodiazepines Scrn Urine Cocaine Screen U Marijuana (THC) Screen Ethyl Alcohol Hep Bs Antigen Hep Bs Antibody Hep B Core Total Ab Influenza Type A (PCR) Influenza Type B (PCR) RSV RNA Qual (PCR) SARS-CoV-2 RNA (RT-PCR) Blood Type Antibody Screen Crossmatch 09/11/23 09/12/23 09/12/23 23:58 04:39 04:42 WBC 29.0 H RBC 3.10 L Hgb 9.5 L Hct 27.7 L MCV 89.4 MCH 30.6 MCHC 34.3 RDW 21.1 H Plt Count 365 MPV 11.3 Immature Gran % (Auto) Cancelled Neut % (Auto) Cancelled Lymph % (Auto) Cancelled [place] % (Auto) Cancelled Eos % (Auto) Cancelled Baso % (Auto) Cancelled Lymph # (Auto) Cancelled [place] # (Auto) Cancelled Eos # (Auto) Cancelled Baso # (Auto) Cancelled Abs Immat Gran (auto) Cancelled Absolute Neuts (auto) Cancelled Absolute Nucleated RBC 0.180 H Nucleated RBC % (auto) 0.6 H Neutrophils % (Manual) 77 H Band Neutrophils % 5 Lymphocytes % (Manual) 4 L Monocytes % (Manual) 3 Eosinophils % (Manual) 8 H Basophils % (Manual) Metamyelocytes % 3 Myelocytes % Abs Neuts (Manual) 23.8 H Lymphocytes # (Manual) 1.2 Monocytes # (Manual) 0.9 Eosinophils # (Manual) 2.3 H Basophils # (Manual) Metamyelocytes # 0.9 Myelocytes # Nucleated RBCs Smudge Cells Toxic Granulation Toxic Vacuolation PRESENT Dohle Bodies Platelet Estimate NORMAL Large Platelets Plt Morphology Comment NORMAL RBC Morphology NOTED Polychromasia 1+ (0-2) Hypochromasia Basophilic Stippling Microcytosis 1+ (5-14) Macrocytosis Spherocytes 1+ (0-2) Target Cells Tear Drop Cells 1+ (0-2) Ovalocytes Stomatocytes Hernandez-Blakeslee Bodies Hilario Cells Schistocytes 1+ (0-2) Smear Tech's Comments Smear Path Review Hold Purple Top PT INR O2 Saturation ABG pH at Pt Temp ABG pCO2 at Pt Temp ABG pO2 at Pt Temp ABG HCO3 ABG Base Excess (Actual) VBG pH 7.48 H VBG pCO2 23 VBG pO2 66 VBG HCO3 17 L VBG O2 Saturation 90.0 VBG Base Excess -4.3 Sodium 139 Potassium 4.1 Chloride 96 Carbon Dioxide 15 L Anion Gap 32 H BUN 147 H Creatinine 6.20 H* Estim Creat Clear Calc 12.3 Estimated GFR 9 POC Glucose 163 H Random Glucose 162 H Estimat Average Glucose Hemoglobin A1c % Lactic Acid Lactic Acid F/U @ 2Hr Lactic Acid F/U @ 4Hr Calcium 9.9 Phosphorus Magnesium Total Bilirubin 0.4 Direct Bilirubin AST 41 H ALT 24 Alkaline Phosphatase 91 Ammonia Total Creatine Kinase Troponin I High Sens B-Natriuretic Peptide Total Protein 8.8 H Albumin 3.9 Lipase Prostate Specific Ag Procalcitonin TSH Urine Color Urine Appearance Urine pH Ur Specific [place] Urine Protein Urine Glucose (UA) Urine Ketones Urine Blood Urine Nitrite Ur Leukocyte Esterase Urine RBC Urine WBC Ur Squamous Epith Cells Urine Bacteria Hyaline Casts Granular Casts Urine Yeast Nasal Screen MRSA (PCR) Nasal S. aureus Screen Nasal MRSA/S.aureus Interp Stool Occult Blood Random Vancomycin Urine Opiates Screen Ur Buprenorphine Scrn Ur Oxycodone Screen Urine Methadone Screen Urine Fentanyl Screen Ur Barbiturates Screen Ur Phencyclidine Scrn Ur Amphetamines Screen U Benzodiazepines Scrn Urine Cocaine Screen U Marijuana (THC) Screen Ethyl Alcohol Hep Bs Antigen Hep Bs Antibody Hep B Core Total Ab Influenza Type A (PCR) Influenza Type B (PCR) RSV RNA Qual (PCR) SARS-CoV-2 RNA (RT-PCR) Blood Type Antibody Screen Crossmatch 09/12/23 09/12/23 09/12/23 08:32 13:35 18:00 WBC RBC Hgb Hct MCV MCH MCHC RDW Plt Count MPV Immature Gran % (Auto) Neut % (Auto) Lymph % (Auto) [place] % (Auto) Eos % (Auto) Baso % (Auto) Lymph # (Auto) [place] # (Auto) Eos # (Auto) Baso # (Auto) Abs Immat Gran (auto) Absolute Neuts (auto) Absolute Nucleated RBC Nucleated RBC % (auto) Neutrophils % (Manual) Band Neutrophils % Lymphocytes % (Manual) Monocytes % (Manual) Eosinophils % (Manual) Basophils % (Manual) Metamyelocytes % Myelocytes % Abs Neuts (Manual) Lymphocytes # (Manual) Monocytes # (Manual) Eosinophils # (Manual) Basophils # (Manual) Metamyelocytes # Myelocytes # Nucleated RBCs Smudge Cells Toxic Granulation Toxic Vacuolation Dohle Bodies Platelet Estimate Large Platelets Plt Morphology Comment RBC Morphology Polychromasia Hypochromasia Basophilic Stippling Microcytosis Macrocytosis Spherocytes Target Cells Tear Drop Cells Ovalocytes Stomatocytes Hernandez-Blakeslee Bodies Hilario Cells Schistocytes Smear Tech's Comments Smear Path Review Hold Purple Top PT INR O2 Saturation ABG pH at Pt Temp ABG pCO2 at Pt Temp ABG pO2 at Pt Temp ABG HCO3 ABG Base Excess (Actual) VBG pH VBG pCO2 VBG pO2 VBG HCO3 VBG O2 Saturation VBG Base Excess Sodium Potassium Chloride Carbon Dioxide Anion Gap BUN Creatinine Estim Creat Clear Calc Estimated GFR POC Glucose 173 H 151 H 148 H Random Glucose Estimat Average Glucose Hemoglobin A1c % Lactic Acid Lactic Acid F/U @ 2Hr Lactic Acid F/U @ 4Hr Calcium Phosphorus Magnesium Total Bilirubin Direct Bilirubin AST ALT Alkaline Phosphatase Ammonia Total Creatine Kinase Troponin I High Sens B-Natriuretic Peptide Total Protein Albumin Lipase Prostate Specific Ag Procalcitonin TSH Urine Color Urine Appearance Urine pH Ur Specific [place] Urine Protein Urine Glucose (UA) Urine Ketones Urine Blood Urine Nitrite Ur Leukocyte Esterase Urine RBC Urine WBC Ur Squamous Epith Cells Urine Bacteria Hyaline Casts Granular Casts Urine Yeast Nasal Screen MRSA (PCR) Nasal S. aureus Screen Nasal MRSA/S.aureus Interp Stool Occult Blood Random Vancomycin Urine Opiates Screen Ur Buprenorphine Scrn Ur Oxycodone Screen Urine Methadone Screen Urine Fentanyl Screen Ur Barbiturates Screen Ur Phencyclidine Scrn Ur Amphetamines Screen U Benzodiazepines Scrn Urine Cocaine Screen U Marijuana (THC) Screen Ethyl Alcohol Hep Bs Antigen Hep Bs Antibody Hep B Core Total Ab Influenza Type A (PCR) Influenza Type B (PCR) RSV RNA Qual (PCR) SARS-CoV-2 RNA (RT-PCR) Blood Type Antibody Screen Crossmatch 09/12/23 09/13/23 09/13/23 23:28 04:35 04:42 WBC 23.4 H RBC 2.27 L D Hgb 6.9 L* D Hct 20.4 L* D MCV 89.9 MCH 30.4 MCHC 33.8 RDW 21.8 H Plt Count 229 D MPV 11.7 Immature Gran % (Auto) Cancelled Neut % (Auto) Cancelled Lymph % (Auto) Cancelled [place] % (Auto) Cancelled Eos % (Auto) Cancelled Baso % (Auto) Cancelled Lymph # (Auto) Cancelled [place] # (Auto) Cancelled Eos # (Auto) Cancelled Baso # (Auto) Cancelled Abs Immat Gran (auto) Cancelled Absolute Neuts (auto) Cancelled Absolute Nucleated RBC 0.060 H Nucleated RBC % (auto) 0.3 H Neutrophils % (Manual) 83 H Band Neutrophils % 2 L Lymphocytes % (Manual) 2 L Monocytes % (Manual) 2 Eosinophils % (Manual) 11 H Basophils % (Manual) Metamyelocytes % Myelocytes % Abs Neuts (Manual) 19.9 H Lymphocytes # (Manual) 0.5 L Monocytes # (Manual) 0.5 Eosinophils # (Manual) 2.6 H Basophils # (Manual) Metamyelocytes # Myelocytes # Nucleated RBCs Smudge Cells Toxic Granulation Toxic Vacuolation Dohle Bodies Platelet Estimate NORMAL Large Platelets Plt Morphology Comment NORMAL RBC Morphology NOTED Polychromasia 1+ (0-2) Hypochromasia 1+ (5-14) Basophilic Stippling Microcytosis Macrocytosis Spherocytes 1+ (0-2) Target Cells Tear Drop Cells Ovalocytes Stomatocytes Hernandez-Blakeslee Bodies Hilario Cells Schistocytes 1+ (0-2) Smear Tech's Comments Smear Path Review Hold Purple Top PT INR O2 Saturation ABG pH at Pt Temp ABG pCO2 at Pt Temp ABG pO2 at Pt Temp ABG HCO3 ABG Base Excess (Actual) VBG pH 7.69 H* VBG pCO2 29 VBG pO2 70 VBG HCO3 35 H VBG O2 Saturation 96.0 VBG Base Excess 15.1 Sodium 133 L Potassium 2.9 L* D Chloride 87 L Carbon Dioxide 29 Anion Gap 20 BUN 79 H Creatinine 3.48 H Estim Creat Clear Calc 23.2 Estimated GFR 18 POC Glucose 116 H Random Glucose 129 H Estimat Average Glucose Hemoglobin A1c % Lactic Acid Lactic Acid F/U @ 2Hr Lactic Acid F/U @ 4Hr Calcium 8.2 L D Phosphorus Magnesium Total Bilirubin 0.4 Direct Bilirubin AST 43 H ALT 24 Alkaline Phosphatase 77 Ammonia Total Creatine Kinase Troponin I High Sens B-Natriuretic Peptide Total Protein 7.3 Albumin 3.1 L Lipase Prostate Specific Ag Procalcitonin TSH Urine Color Urine Appearance Urine pH Ur Specific [place] Urine Protein Urine Glucose (UA) Urine Ketones Urine Blood Urine Nitrite Ur Leukocyte Esterase Urine RBC Urine WBC Ur Squamous Epith Cells Urine Bacteria Hyaline Casts Granular Casts Urine Yeast Nasal Screen MRSA (PCR) Nasal S. aureus Screen Nasal MRSA/S.aureus Interp Stool Occult Blood Random Vancomycin Urine Opiates Screen Ur Buprenorphine Scrn Ur Oxycodone Screen Urine Methadone Screen Urine Fentanyl Screen Ur Barbiturates Screen Ur Phencyclidine Scrn Ur Amphetamines Screen U Benzodiazepines Scrn Urine Cocaine Screen U Marijuana (THC) Screen Ethyl Alcohol Hep Bs Antigen Hep Bs Antibody Hep B Core Total Ab Influenza Type A (PCR) Influenza Type B (PCR) RSV RNA Qual (PCR) SARS-CoV-2 RNA (RT-PCR) Blood Type Antibody Screen Crossmatch 09/13/23 09/13/23 09/13/23 05:39 07:52 12:34 WBC RBC Hgb Hct MCV MCH MCHC RDW Plt Count MPV Immature Gran % (Auto) Neut % (Auto) Lymph % (Auto) [place] % (Auto) Eos % (Auto) Baso % (Auto) Lymph # (Auto) [place] # (Auto) Eos # (Auto) Baso # (Auto) Abs Immat Gran (auto) Absolute Neuts (auto) Absolute Nucleated RBC Nucleated RBC % (auto) Neutrophils % (Manual) Band Neutrophils % Lymphocytes % (Manual) Monocytes % (Manual) Eosinophils % (Manual) Basophils % (Manual) Metamyelocytes % Myelocytes % Abs Neuts (Manual) Lymphocytes # (Manual) Monocytes # (Manual) Eosinophils # (Manual) Basophils # (Manual) Metamyelocytes # Myelocytes # Nucleated RBCs Smudge Cells Toxic Granulation Toxic Vacuolation Dohle Bodies Platelet Estimate Large Platelets Plt Morphology Comment RBC Morphology Polychromasia Hypochromasia Basophilic Stippling Microcytosis Macrocytosis Spherocytes Target Cells Tear Drop Cells Ovalocytes Stomatocytes Hernandez-Blakeslee Bodies Pelzer Cells Schistocytes Smear Tech's Comments Smear Path Review Hold Purple Top PT INR O2 Saturation ABG pH at Pt Temp ABG pCO2 at Pt Temp ABG pO2 at Pt Temp ABG HCO3 ABG Base Excess (Actual) VBG pH VBG pCO2 VBG pO2 VBG HCO3 VBG O2 Saturation VBG Base Excess Sodium Potassium Chloride Carbon Dioxide Anion Gap BUN Creatinine Estim Creat Clear Calc Estimated GFR POC Glucose 119 H Random Glucose Estimat Average Glucose Hemoglobin A1c % Lactic Acid Lactic Acid F/U @ 2Hr Lactic Acid F/U @ 4Hr Calcium Phosphorus Magnesium Total Bilirubin Direct Bilirubin AST ALT Alkaline Phosphatase Ammonia Total Creatine Kinase Troponin I High Sens B-Natriuretic Peptide Total Protein Albumin Lipase Prostate Specific Ag Procalcitonin TSH Urine Color Urine Appearance Urine pH Ur Specific [place] Urine Protein Urine Glucose (UA) Urine Ketones Urine Blood Urine Nitrite Ur Leukocyte Esterase Urine RBC Urine WBC Ur Squamous Epith Cells Urine Bacteria Hyaline Casts Granular Casts Urine Yeast Nasal Screen MRSA (PCR) Nasal S. aureus Screen Nasal MRSA/S.aureus Interp Stool Occult Blood NEGATIVE Random Vancomycin Urine Opiates Screen Ur Buprenorphine Scrn Ur Oxycodone Screen Urine Methadone Screen Urine Fentanyl Screen Ur Barbiturates Screen Ur Phencyclidine Scrn Ur Amphetamines Screen U Benzodiazepines Scrn Urine Cocaine Screen U Marijuana (THC) Screen Ethyl Alcohol Hep Bs Antigen Hep Bs Antibody Hep B Core Total Ab Influenza Type A (PCR) Influenza Type B (PCR) RSV RNA Qual (PCR) SARS-CoV-2 RNA (RT-PCR) Blood Type O Positive Antibody Screen NEGATIVE Crossmatch See Detail 09/13/23 09/13/23 09/13/23 18:43 21:06 23:59 WBC RBC Hgb 7.9 L Hct 22.9 L MCV MCH MCHC RDW Plt Count MPV Immature Gran % (Auto) Neut % (Auto) Lymph % (Auto) [place] % (Auto) Eos % (Auto) Baso % (Auto) Lymph # (Auto) [place] # (Auto) Eos # (Auto) Baso # (Auto) Abs Immat Gran (auto) Absolute Neuts (auto) Absolute Nucleated RBC Nucleated RBC % (auto) Neutrophils % (Manual) Band Neutrophils % Lymphocytes % (Manual) Monocytes % (Manual) Eosinophils % (Manual) Basophils % (Manual) Metamyelocytes % Myelocytes % Abs Neuts (Manual) Lymphocytes # (Manual) Monocytes # (Manual) Eosinophils # (Manual) Basophils # (Manual) Metamyelocytes # Myelocytes # Nucleated RBCs Smudge Cells Toxic Granulation Toxic Vacuolation Dohle Bodies Platelet Estimate Large Platelets Plt Morphology Comment RBC Morphology Polychromasia Hypochromasia Basophilic Stippling Microcytosis Macrocytosis Spherocytes Target Cells Tear Drop Cells Ovalocytes Stomatocytes Hernandez-Blakeslee Bodies Hilario Cells Schistocytes Smear Tech's Comments Smear Path Review Hold Purple Top PT INR O2 Saturation ABG pH at Pt Temp ABG pCO2 at Pt Temp ABG pO2 at Pt Temp ABG HCO3 ABG Base Excess (Actual) VBG pH VBG pCO2 VBG pO2 VBG HCO3 VBG O2 Saturation VBG Base Excess Sodium Potassium Chloride Carbon Dioxide Anion Gap BUN Creatinine Estim Creat Clear Calc Estimated GFR POC Glucose 99 81 Random Glucose Estimat Average Glucose Hemoglobin A1c % Lactic Acid Lactic Acid F/U @ 2Hr Lactic Acid F/U @ 4Hr Calcium Phosphorus Magnesium Total Bilirubin Direct Bilirubin AST ALT Alkaline Phosphatase Ammonia Total Creatine Kinase Troponin I High Sens B-Natriuretic Peptide Total Protein Albumin Lipase Prostate Specific Ag Procalcitonin TSH Urine Color Urine Appearance Urine pH Ur Specific [place] Urine Protein Urine Glucose (UA) Urine Ketones Urine Blood Urine Nitrite Ur Leukocyte Esterase Urine RBC Urine WBC Ur Squamous Epith Cells Urine Bacteria Hyaline Casts Granular Casts Urine Yeast Nasal Screen MRSA (PCR) Nasal S. aureus Screen Nasal MRSA/S.aureus Interp Stool Occult Blood Random Vancomycin Urine Opiates Screen Ur Buprenorphine Scrn Ur Oxycodone Screen Urine Methadone Screen Urine Fentanyl Screen Ur Barbiturates Screen Ur Phencyclidine Scrn Ur Amphetamines Screen U Benzodiazepines Scrn Urine Cocaine Screen U Marijuana (THC) Screen Ethyl Alcohol Hep Bs Antigen Hep Bs Antibody Hep B Core Total Ab Influenza Type A (PCR) Influenza Type B (PCR) RSV RNA Qual (PCR) SARS-CoV-2 RNA (RT-PCR) Blood Type Antibody Screen Crossmatch 09/14/23 09/14/23 09/14/23 05:09 05:14 08:35 WBC 16.6 H RBC 2.50 L Hgb 7.9 L Hct 23.1 L MCV 92.4 MCH 31.6 MCHC 34.2 RDW 19.7 H Plt Count 182 MPV 10.6 Immature Gran % (Auto) Cancelled Neut % (Auto) Cancelled Lymph % (Auto) Cancelled [place] % (Auto) Cancelled Eos % (Auto) Cancelled Baso % (Auto) Cancelled Lymph # (Auto) Cancelled [place] # (Auto) Cancelled Eos # (Auto) Cancelled Baso # (Auto) Cancelled Abs Immat Gran (auto) Cancelled Absolute Neuts (auto) Cancelled Absolute Nucleated RBC 0.000 Nucleated RBC % (auto) 0.0 Neutrophils % (Manual) 81 H Band Neutrophils % 2 L Lymphocytes % (Manual) 4 L Monocytes % (Manual) 3 Eosinophils % (Manual) 9 H Basophils % (Manual) 1 Metamyelocytes % Myelocytes % Abs Neuts (Manual) 13.8 H Lymphocytes # (Manual) 0.7 L Monocytes # (Manual) 0.5 Eosinophils # (Manual) 1.5 H Basophils # (Manual) 0.2 Metamyelocytes # Myelocytes # Nucleated RBCs 1 H Smudge Cells Toxic Granulation Toxic Vacuolation Dohle Bodies Platelet Estimate NORMAL Large Platelets Plt Morphology Comment NOTED RBC Morphology NOTED Polychromasia 1+ (0-2) Hypochromasia 1+ (5-14) Basophilic Stippling Microcytosis Macrocytosis Spherocytes 1+ (0-2) Target Cells Tear Drop Cells Ovalocytes Stomatocytes Hernandez-Blakeslee Bodies Pelzer Cells Schistocytes 1+ (0-2) Smear Tech's Comments Smear Path Review Hold Purple Top PT INR O2 Saturation ABG pH at Pt Temp ABG pCO2 at Pt Temp ABG pO2 at Pt Temp ABG HCO3 ABG Base Excess (Actual) VBG pH 7.56 H VBG pCO2 31 VBG pO2 48 VBG HCO3 28 H VBG O2 Saturation 84.0 VBG Base Excess 6.0 Sodium 131 L Potassium 2.7 L* Chloride 94 L Carbon Dioxide 26 Anion Gap 14 BUN 35 H Creatinine 2.09 H Estim Creat Clear Calc 38.6 Estimated GFR 33 POC Glucose Random Glucose 92 Estimat Average Glucose Hemoglobin A1c % Lactic Acid Lactic Acid F/U @ 2Hr Lactic Acid F/U @ 4Hr Calcium 9.1 D Phosphorus Magnesium Total Bilirubin 0.4 Direct Bilirubin AST 34 ALT 24 Alkaline Phosphatase 86 Ammonia 32 Total Creatine Kinase Troponin I High Sens B-Natriuretic Peptide Total Protein 7.4 Albumin 3.3 L Lipase Prostate Specific Ag Procalcitonin TSH 2.69 Urine Color Urine Appearance Urine pH Ur Specific [place] Urine Protein Urine Glucose (UA) Urine Ketones Urine Blood Urine Nitrite Ur Leukocyte Esterase Urine RBC Urine WBC Ur Squamous Epith Cells Urine Bacteria Hyaline Casts Granular Casts Urine Yeast Nasal Screen MRSA (PCR) Nasal S. aureus Screen Nasal MRSA/S.aureus Interp Stool Occult Blood Random Vancomycin Urine Opiates Screen Ur Buprenorphine Scrn Ur Oxycodone Screen Urine Methadone Screen Urine Fentanyl Screen Ur Barbiturates Screen Ur Phencyclidine Scrn Ur Amphetamines Screen U Benzodiazepines Scrn Urine Cocaine Screen U Marijuana (THC) Screen Ethyl Alcohol Hep Bs Antigen Hep Bs Antibody Hep B Core Total Ab Influenza Type A (PCR) Influenza Type B (PCR) RSV RNA Qual (PCR) SARS-CoV-2 RNA (RT-PCR) Blood Type Antibody Screen Crossmatch 09/14/23 09/14/23 09/14/23 12:10 14:47 18:14 WBC RBC Hgb Hct MCV MCH MCHC RDW Plt Count MPV Immature Gran % (Auto) Neut % (Auto) Lymph % (Auto) [place] % (Auto) Eos % (Auto) Baso % (Auto) Lymph # (Auto) [place] # (Auto) Eos # (Auto) Baso # (Auto) Abs Immat Gran (auto) Absolute Neuts (auto) Absolute Nucleated RBC Nucleated RBC % (auto) Neutrophils % (Manual) Band Neutrophils % Lymphocytes % (Manual) Monocytes % (Manual) Eosinophils % (Manual) Basophils % (Manual) Metamyelocytes % Myelocytes % Abs Neuts (Manual) Lymphocytes # (Manual) Monocytes # (Manual) Eosinophils # (Manual) Basophils # (Manual) Metamyelocytes # Myelocytes # Nucleated RBCs Smudge Cells Toxic Granulation Toxic Vacuolation Dohle Bodies Platelet Estimate Large Platelets Plt Morphology Comment RBC Morphology Polychromasia Hypochromasia Basophilic Stippling Microcytosis Macrocytosis Spherocytes Target Cells Tear Drop Cells Ovalocytes Stomatocytes Hernandez-Blakeslee Bodies Pelzer Cells Schistocytes Smear Tech's Comments Smear Path Review Hold Purple Top PT INR O2 Saturation ABG pH at Pt Temp ABG pCO2 at Pt Temp ABG pO2 at Pt Temp ABG HCO3 ABG Base Excess (Actual) VBG pH VBG pCO2 VBG pO2 VBG HCO3 VBG O2 Saturation VBG Base Excess Sodium 131 L Potassium 3.2 L Chloride 95 L Carbon Dioxide 26 Anion Gap 13 BUN 40 H Creatinine 2.30 H Estim Creat Clear Calc 35.1 Estimated GFR 30 POC Glucose 91 98 Random Glucose 90 Estimat Average Glucose Hemoglobin A1c % Lactic Acid Lactic Acid F/U @ 2Hr Lactic Acid F/U @ 4Hr Calcium 9.3 Phosphorus 4.2 Magnesium 2.0 Total Bilirubin 0.4 Direct Bilirubin AST 31 ALT 22 Alkaline Phosphatase 86 Ammonia Total Creatine Kinase Troponin I High Sens B-Natriuretic Peptide Total Protein 7.4 Albumin 3.4 L Lipase Prostate Specific Ag Procalcitonin TSH Urine Color Urine Appearance Urine pH Ur Specific [place] Urine Protein Urine Glucose (UA) Urine Ketones Urine Blood Urine Nitrite Ur Leukocyte Esterase Urine RBC Urine WBC Ur Squamous Epith Cells Urine Bacteria Hyaline Casts Granular Casts Urine Yeast Nasal Screen MRSA (PCR) Nasal S. aureus Screen Nasal MRSA/S.aureus Interp Stool Occult Blood Random Vancomycin Urine Opiates Screen Ur Buprenorphine Scrn Ur Oxycodone Screen Urine Methadone Screen Urine Fentanyl Screen Ur Barbiturates Screen Ur Phencyclidine Scrn Ur Amphetamines Screen U Benzodiazepines Scrn Urine Cocaine Screen U Marijuana (THC) Screen Ethyl Alcohol Hep Bs Antigen Hep Bs Antibody Hep B Core Total Ab Influenza Type A (PCR) Influenza Type B (PCR) RSV RNA Qual (PCR) SARS-CoV-2 RNA (RT-PCR) Blood Type Antibody Screen Crossmatch 09/14/23 09/15/23 09/15/23 23:47 05:19 05:24 WBC 12.7 H RBC 2.45 L Hgb 7.5 L Hct 22.4 L MCV 91.4 MCH 30.6 MCHC 33.5 RDW 19.7 H Plt Count 190 MPV 11.1 Immature Gran % (Auto) 4.0 H Neut % (Auto) 67.1 Lymph % (Auto) 10.9 L [place] % (Auto) 7.7 Eos % (Auto) 10.1 H Baso % (Auto) 0.2 Lymph # (Auto) 1.4 [place] # (Auto) 1.0 Eos # (Auto) 1.3 H Baso # (Auto) 0.0 Abs Immat Gran (auto) 0.50 H Absolute Neuts (auto) 8.5 H Absolute Nucleated RBC 0.000 Nucleated RBC % (auto) 0.0 Neutrophils % (Manual) Band Neutrophils % Lymphocytes % (Manual) Monocytes % (Manual) Eosinophils % (Manual) Basophils % (Manual) Metamyelocytes % Myelocytes % Abs Neuts (Manual) Lymphocytes # (Manual) Monocytes # (Manual) Eosinophils # (Manual) Basophils # (Manual) Metamyelocytes # Myelocytes # Nucleated RBCs Smudge Cells Toxic Granulation Toxic Vacuolation Dohle Bodies Platelet Estimate Large Platelets Plt Morphology Comment RBC Morphology Polychromasia Hypochromasia Basophilic Stippling Microcytosis Macrocytosis Spherocytes Target Cells Tear Drop Cells Ovalocytes Stomatocytes Hernandez-Blakeslee Bodies Hilario Cells Schistocytes Smear Tech's Comments Smear Path Review Hold Purple Top PT INR O2 Saturation ABG pH at Pt Temp ABG pCO2 at Pt Temp ABG pO2 at Pt Temp ABG HCO3 ABG Base Excess (Actual) VBG pH 7.54 H VBG pCO2 31 VBG pO2 48 VBG HCO3 26 VBG O2 Saturation 79.0 VBG Base Excess 4.7 Sodium 133 L Potassium 2.8 L* Chloride 96 Carbon Dioxide 24 Anion Gap 16 BUN 51 H Creatinine 2.41 H Estim Creat Clear Calc 33.5 Estimated GFR 28 POC Glucose 90 Random Glucose 97 Estimat Average Glucose Hemoglobin A1c % Lactic Acid Lactic Acid F/U @ 2Hr Lactic Acid F/U @ 4Hr Calcium 9.4 Phosphorus 4.4 Magnesium 2.1 Total Bilirubin 0.3 Direct Bilirubin AST 28 ALT 20 Alkaline Phosphatase 90 Ammonia Total Creatine Kinase Troponin I High Sens B-Natriuretic Peptide Total Protein 7.3 Albumin 3.4 L Lipase Prostate Specific Ag Procalcitonin TSH Urine Color Urine Appearance Urine pH Ur Specific [place] Urine Protein Urine Glucose (UA) Urine Ketones Urine Blood Urine Nitrite Ur Leukocyte Esterase Urine RBC Urine WBC Ur Squamous Epith Cells Urine Bacteria Hyaline Casts Granular Casts Urine Yeast Nasal Screen MRSA (PCR) Nasal S. aureus Screen Nasal MRSA/S.aureus Interp Stool Occult Blood Random Vancomycin Urine Opiates Screen Ur Buprenorphine Scrn Ur Oxycodone Screen Urine Methadone Screen Urine Fentanyl Screen Ur Barbiturates Screen Ur Phencyclidine Scrn Ur Amphetamines Screen U Benzodiazepines Scrn Urine Cocaine Screen U Marijuana (THC) Screen Ethyl Alcohol Hep Bs Antigen Hep Bs Antibody Hep B Core Total Ab Influenza Type A (PCR) Influenza Type B (PCR) RSV RNA Qual (PCR) SARS-CoV-2 RNA (RT-PCR) Blood Type Antibody Screen Crossmatch 09/15/23 09/15/23 09/16/23 10:09 22:08 05:04 WBC 12.5 H RBC 2.61 L Hgb 8.0 L Hct 24.2 L MCV 92.7 MCH 30.7 MCHC 33.1 RDW 19.1 H Plt Count 195 MPV 10.5 Immature Gran % (Auto) 2.2 H Neut % (Auto) 66.0 Lymph % (Auto) 12.1 L [place] % (Auto) 7.3 Eos % (Auto) 12.1 H Baso % (Auto) 0.3 Lymph # (Auto) 1.5 [place] # (Auto) 0.9 Eos # (Auto) 1.5 H Baso # (Auto) 0.0 Abs Immat Gran (auto) 0.27 H Absolute Neuts (auto) 8.3 Absolute Nucleated RBC 0.000 Nucleated RBC % (auto) 0.0 Neutrophils % (Manual) Band Neutrophils % Lymphocytes % (Manual) Monocytes % (Manual) Eosinophils % (Manual) Basophils % (Manual) Metamyelocytes % Myelocytes % Abs Neuts (Manual) Lymphocytes # (Manual) Monocytes # (Manual) Eosinophils # (Manual) Basophils # (Manual) Metamyelocytes # Myelocytes # Nucleated RBCs Smudge Cells Toxic Granulation Toxic Vacuolation Dohle Bodies Platelet Estimate Large Platelets Plt Morphology Comment RBC Morphology Polychromasia Hypochromasia Basophilic Stippling Microcytosis Macrocytosis Spherocytes Target Cells Tear Drop Cells Ovalocytes Stomatocytes Hernandez-Blakeslee Bodies Hilario Cells Schistocytes Smear Tech's Comments Smear Path Review Hold Purple Top PT INR O2 Saturation ABG pH at Pt Temp ABG pCO2 at Pt Temp ABG pO2 at Pt Temp ABG HCO3 ABG Base Excess (Actual) VBG pH VBG pCO2 VBG pO2 VBG HCO3 VBG O2 Saturation VBG Base Excess Sodium 136 Potassium 3.4 D Chloride 103 Carbon Dioxide 21 L Anion Gap 15 BUN 54 H Creatinine 2.46 H Estim Creat Clear Calc 32.8 Estimated GFR 27 POC Glucose 110 83 Random Glucose 82 Estimat Average Glucose Hemoglobin A1c % Lactic Acid Lactic Acid F/U @ 2Hr Lactic Acid F/U @ 4Hr Calcium 9.7 Phosphorus 4.8 H Magnesium 2.2 Total Bilirubin 0.5 Direct Bilirubin AST 30 ALT 20 Alkaline Phosphatase 104 Ammonia Total Creatine Kinase Troponin I High Sens B-Natriuretic Peptide Total Protein 7.7 Albumin 3.5 Lipase Prostate Specific Ag Procalcitonin TSH Urine Color Urine Appearance Urine pH Ur Specific [place] Urine Protein Urine Glucose (UA) Urine Ketones Urine Blood Urine Nitrite Ur Leukocyte Esterase Urine RBC Urine WBC Ur Squamous Epith Cells Urine Bacteria Hyaline Casts Granular Casts Urine Yeast Nasal Screen MRSA (PCR) Nasal S. aureus Screen Nasal MRSA/S.aureus Interp Stool Occult Blood Random Vancomycin Urine Opiates Screen Ur Buprenorphine Scrn Ur Oxycodone Screen Urine Methadone Screen Urine Fentanyl Screen Ur Barbiturates Screen Ur Phencyclidine Scrn Ur Amphetamines Screen U Benzodiazepines Scrn Urine Cocaine Screen U Marijuana (THC) Screen Ethyl Alcohol Hep Bs Antigen Hep Bs Antibody Hep B Core Total Ab Influenza Type A (PCR) Influenza Type B (PCR) RSV RNA Qual (PCR) SARS-CoV-2 RNA (RT-PCR) Blood Type Antibody Screen Crossmatch 09/16/23 09/17/23 09/17/23 10:09 08:00 09:41 WBC 10.6 RBC 2.49 L Hgb 7.6 L Hct 22.3 L MCV 89.6 MCH 30.5 MCHC 34.1 RDW 18.3 H Plt Count 192 MPV 10.8 Immature Gran % (Auto) 2.4 H Neut % (Auto) 67.1 Lymph % (Auto) 11.9 L [place] % (Auto) 6.2 Eos % (Auto) 12.1 H Baso % (Auto) 0.3 Lymph # (Auto) 1.3 [place] # (Auto) 0.7 Eos # (Auto) 1.3 H Baso # (Auto) 0.0 Abs Immat Gran (auto) 0.25 H Absolute Neuts (auto) 7.1 Absolute Nucleated RBC 0.000 Nucleated RBC % (auto) 0.0 Neutrophils % (Manual) Band Neutrophils % Lymphocytes % (Manual) Monocytes % (Manual) Eosinophils % (Manual) Basophils % (Manual) Metamyelocytes % Myelocytes % Abs Neuts (Manual) Lymphocytes # (Manual) Monocytes # (Manual) Eosinophils # (Manual) Basophils # (Manual) Metamyelocytes # Myelocytes # Nucleated RBCs Smudge Cells Toxic Granulation Toxic Vacuolation Dohle Bodies Platelet Estimate Large Platelets Plt Morphology Comment RBC Morphology Polychromasia Hypochromasia Basophilic Stippling Microcytosis Macrocytosis Spherocytes Target Cells Tear Drop Cells Ovalocytes Stomatocytes Hernandez-Blakeslee Bodies Hilario Cells Schistocytes Smear Tech's Comments Smear Path Review Hold Purple Top PT INR O2 Saturation ABG pH at Pt Temp ABG pCO2 at Pt Temp ABG pO2 at Pt Temp ABG HCO3 ABG Base Excess (Actual) VBG pH VBG pCO2 VBG pO2 VBG HCO3 VBG O2 Saturation VBG Base Excess Sodium 131 L Potassium 4.3 D Chloride 100 Carbon Dioxide 21 L Anion Gap 14 BUN 50 H Creatinine 2.06 H Estim Creat Clear Calc 39.1 Estimated GFR 34 POC Glucose 88 96 Random Glucose 114 Estimat Average Glucose Hemoglobin A1c % Lactic Acid Lactic Acid F/U @ 2Hr Lactic Acid F/U @ 4Hr Calcium 8.9 D Phosphorus 4.6 H Magnesium 1.8 Total Bilirubin 0.5 Direct Bilirubin AST 32 ALT 22 Alkaline Phosphatase 118 H Ammonia Total Creatine Kinase Troponin I High Sens B-Natriuretic Peptide Total Protein 7.9 Albumin 3.5 Lipase Prostate Specific Ag Procalcitonin TSH Urine Color Urine Appearance Urine pH Ur Specific [place] Urine Protein Urine Glucose (UA) Urine Ketones Urine Blood Urine Nitrite Ur Leukocyte Esterase Urine RBC Urine WBC Ur Squamous Epith Cells Urine Bacteria Hyaline Casts Granular Casts Urine Yeast Nasal Screen MRSA (PCR) Nasal S. aureus Screen Nasal MRSA/S.aureus Interp Stool Occult Blood Random Vancomycin Urine Opiates Screen Ur Buprenorphine Scrn Ur Oxycodone Screen Urine Methadone Screen Urine Fentanyl Screen Ur Barbiturates Screen Ur Phencyclidine Scrn Ur Amphetamines Screen U Benzodiazepines Scrn Urine Cocaine Screen U Marijuana (THC) Screen Ethyl Alcohol Hep Bs Antigen Hep Bs Antibody Hep B Core Total Ab Influenza Type A (PCR) Influenza Type B (PCR) RSV RNA Qual (PCR) SARS-CoV-2 RNA (RT-PCR) Blood Type Antibody Screen Crossmatch 09/17/23 09/17/23 09/17/23 10:35 12:12 17:46 WBC 10.3 RBC 2.65 L Hgb 8.2 L Hct 24.3 L MCV 91.7 MCH 30.9 MCHC 33.7 RDW 18.1 H Plt Count 184 MPV 9.5 Immature Gran % (Auto) Neut % (Auto) Lymph % (Auto) [place] % (Auto) Eos % (Auto) Baso % (Auto) Lymph # (Auto) [place] # (Auto) Eos # (Auto) Baso # (Auto) Abs Immat Gran (auto) Absolute Neuts (auto) Absolute Nucleated RBC 0.000 Nucleated RBC % (auto) 0.0 Neutrophils % (Manual) Band Neutrophils % Lymphocytes % (Manual) Monocytes % (Manual) Eosinophils % (Manual) Basophils % (Manual) Metamyelocytes % Myelocytes % Abs Neuts (Manual) Lymphocytes # (Manual) Monocytes # (Manual) Eosinophils # (Manual) Basophils # (Manual) Metamyelocytes # Myelocytes # Nucleated RBCs Smudge Cells Toxic Granulation Toxic Vacuolation Dohle Bodies Platelet Estimate Large Platelets Plt Morphology Comment RBC Morphology Polychromasia Hypochromasia Basophilic Stippling Microcytosis Macrocytosis Spherocytes Target Cells Tear Drop Cells Ovalocytes Stomatocytes Hernandez-Blakeslee Bodies Hilario Cells Schistocytes Smear Tech's Comments Smear Path Review Hold Purple Top PT INR O2 Saturation ABG pH at Pt Temp ABG pCO2 at Pt Temp ABG pO2 at Pt Temp ABG HCO3 ABG Base Excess (Actual) VBG pH VBG pCO2 VBG pO2 VBG HCO3 VBG O2 Saturation VBG Base Excess Sodium 133 L Potassium 3.5 Chloride 99 Carbon Dioxide 25 Anion Gap 13 BUN 49 H Creatinine 2.04 H Estim Creat Clear Calc 39.5 Estimated GFR 34 POC Glucose 111 91 Random Glucose 111 Estimat Average Glucose Hemoglobin A1c % Lactic Acid Lactic Acid F/U @ 2Hr Lactic Acid F/U @ 4Hr Calcium 9.1 Phosphorus Magnesium Total Bilirubin Direct Bilirubin AST ALT Alkaline Phosphatase Ammonia Total Creatine Kinase Troponin I High Sens B-Natriuretic Peptide Total Protein Albumin Lipase Prostate Specific Ag Procalcitonin TSH Urine Color Urine Appearance Urine pH Ur Specific [place] Urine Protein Urine Glucose (UA) Urine Ketones Urine Blood Urine Nitrite Ur Leukocyte Esterase Urine RBC Urine WBC Ur Squamous Epith Cells Urine Bacteria Hyaline Casts Granular Casts Urine Yeast Nasal Screen MRSA (PCR) Nasal S. aureus Screen Nasal MRSA/S.aureus Interp Stool Occult Blood Random Vancomycin Urine Opiates Screen Ur Buprenorphine Scrn Ur Oxycodone Screen Urine Methadone Screen Urine Fentanyl Screen Ur Barbiturates Screen Ur Phencyclidine Scrn Ur Amphetamines Screen U Benzodiazepines Scrn Urine Cocaine Screen U Marijuana (THC) Screen Ethyl Alcohol Hep Bs Antigen Hep Bs Antibody Hep B Core Total Ab Influenza Type A (PCR) Influenza Type B (PCR) RSV RNA Qual (PCR) SARS-CoV-2 RNA (RT-PCR) Blood Type Antibody Screen Crossmatch 09/17/23 09/18/23 09/18/23 21:56 06:53 08:05 WBC 7.9 RBC 2.66 L Hgb 8.1 L Hct 23.9 L MCV 89.8 MCH 30.5 MCHC 33.9 RDW 17.6 H Plt Count 174 MPV 9.7 Immature Gran % (Auto) 0.6 H Neut % (Auto) 64.2 Lymph % (Auto) 13.9 L [place] % (Auto) 6.2 Eos % (Auto) 14.6 H Baso % (Auto) 0.5 Lymph # (Auto) 1.1 L [place] # (Auto) 0.5 Eos # (Auto) 1.2 H Baso # (Auto) 0.0 Abs Immat Gran (auto) 0.05 H Absolute Neuts (auto) 5.1 Absolute Nucleated RBC 0.000 Nucleated RBC % (auto) 0.0 Neutrophils % (Manual) Band Neutrophils % Lymphocytes % (Manual) Monocytes % (Manual) Eosinophils % (Manual) Basophils % (Manual) Metamyelocytes % Myelocytes % Abs Neuts (Manual) Lymphocytes # (Manual) Monocytes # (Manual) Eosinophils # (Manual) Basophils # (Manual) Metamyelocytes # Myelocytes # Nucleated RBCs Smudge Cells Toxic Granulation Toxic Vacuolation Dohle Bodies Platelet Estimate Large Platelets Plt Morphology Comment RBC Morphology Polychromasia Hypochromasia Basophilic Stippling Microcytosis Macrocytosis Spherocytes Target Cells Tear Drop Cells Ovalocytes Stomatocytes Hernandez-Blakeslee Bodies Hilario Cells Schistocytes Smear Tech's Comments Smear Path Review Hold Purple Top PT INR O2 Saturation ABG pH at Pt Temp ABG pCO2 at Pt Temp ABG pO2 at Pt Temp ABG HCO3 ABG Base Excess (Actual) VBG pH VBG pCO2 VBG pO2 VBG HCO3 VBG O2 Saturation VBG Base Excess Sodium 133 L Potassium 3.7 Chloride 100 Carbon Dioxide 23 Anion Gap 14 BUN 51 H Creatinine 1.80 H Estim Creat Clear Calc 44.8 Estimated GFR 39 POC Glucose 91 95 Random Glucose 89 Estimat Average Glucose Hemoglobin A1c % Lactic Acid Lactic Acid F/U @ 2Hr Lactic Acid F/U @ 4Hr Calcium 9.3 Phosphorus 4.0 Magnesium 1.8 Total Bilirubin 0.5 Direct Bilirubin AST 28 ALT 20 Alkaline Phosphatase 122 H Ammonia Total Creatine Kinase Troponin I High Sens B-Natriuretic Peptide Total Protein 8.1 H Albumin 3.7 Lipase Prostate Specific Ag 0.43 Procalcitonin TSH Urine Color Urine Appearance Urine pH Ur Specific [place] Urine Protein Urine Glucose (UA) Urine Ketones Urine Blood Urine Nitrite Ur Leukocyte Esterase Urine RBC Urine WBC Ur Squamous Epith Cells Urine Bacteria Hyaline Casts Granular Casts Urine Yeast Nasal Screen MRSA (PCR) Nasal S. aureus Screen Nasal MRSA/S.aureus Interp Stool Occult Blood Random Vancomycin Urine Opiates Screen Ur Buprenorphine Scrn Ur Oxycodone Screen Urine Methadone Screen Urine Fentanyl Screen Ur Barbiturates Screen Ur Phencyclidine Scrn Ur Amphetamines Screen U Benzodiazepines Scrn Urine Cocaine Screen U Marijuana (THC) Screen Ethyl Alcohol Hep Bs Antigen Hep Bs Antibody Hep B Core Total Ab Influenza Type A (PCR) Influenza Type B (PCR) RSV RNA Qual (PCR) SARS-CoV-2 RNA (RT-PCR) Blood Type Antibody Screen Crossmatch 09/18/23 09/18/23 09/18/23 12:14 17:45 20:43 WBC RBC Hgb Hct MCV MCH MCHC RDW Plt Count MPV Immature Gran % (Auto) Neut % (Auto) Lymph % (Auto) [place] % (Auto) Eos % (Auto) Baso % (Auto) Lymph # (Auto) [place] # (Auto) Eos # (Auto) Baso # (Auto) Abs Immat Gran (auto) Absolute Neuts (auto) Absolute Nucleated RBC Nucleated RBC % (auto) Neutrophils % (Manual) Band Neutrophils % Lymphocytes % (Manual) Monocytes % (Manual) Eosinophils % (Manual) Basophils % (Manual) Metamyelocytes % Myelocytes % Abs Neuts (Manual) Lymphocytes # (Manual) Monocytes # (Manual) Eosinophils # (Manual) Basophils # (Manual) Metamyelocytes # Myelocytes # Nucleated RBCs Smudge Cells Toxic Granulation Toxic Vacuolation Dohle Bodies Platelet Estimate Large Platelets Plt Morphology Comment RBC Morphology Polychromasia Hypochromasia Basophilic Stippling Microcytosis Macrocytosis Spherocytes Target Cells Tear Drop Cells Ovalocytes Stomatocytes Hernandez-Blakeslee Bodies Hilario Cells Schistocytes Smear Tech's Comments Smear Path Review Hold Purple Top PT INR O2 Saturation ABG pH at Pt Temp ABG pCO2 at Pt Temp ABG pO2 at Pt Temp ABG HCO3 ABG Base Excess (Actual) VBG pH VBG pCO2 VBG pO2 VBG HCO3 VBG O2 Saturation VBG Base Excess Sodium Potassium Chloride Carbon Dioxide Anion Gap BUN Creatinine Estim Creat Clear Calc Estimated GFR POC Glucose 110 97 Random Glucose Estimat Average Glucose Hemoglobin A1c % Lactic Acid Lactic Acid F/U @ 2Hr Lactic Acid F/U @ 4Hr Calcium Phosphorus Magnesium Total Bilirubin Direct Bilirubin AST ALT Alkaline Phosphatase Ammonia Total Creatine Kinase Troponin I High Sens B-Natriuretic Peptide Total Protein Albumin Lipase Prostate Specific Ag Procalcitonin TSH Urine Color Yellow Urine Appearance Clear Urine pH 6.5 Ur Specific [place] <= 1.005 Urine Protein 30 (1+) H Urine Glucose (UA) Negative Urine Ketones Negative Urine Blood Small (1+) H Urine Nitrite Negative Ur Leukocyte Esterase Trace H Urine RBC 0-2 Urine WBC 0-5 Ur Squamous Epith Cells 0-2 Urine Bacteria None Seen Hyaline Casts 0-2 Granular Casts Urine Yeast Nasal Screen MRSA (PCR) Nasal S. aureus Screen Nasal MRSA/S.aureus Interp Stool Occult Blood Random Vancomycin Urine Opiates Screen Ur Buprenorphine Scrn Ur Oxycodone Screen Urine Methadone Screen Urine Fentanyl Screen Ur Barbiturates Screen Ur Phencyclidine Scrn Ur Amphetamines Screen U Benzodiazepines Scrn Urine Cocaine Screen U Marijuana (THC) Screen Ethyl Alcohol Hep Bs Antigen Hep Bs Antibody Hep B Core Total Ab Influenza Type A (PCR) Influenza Type B (PCR) RSV RNA Qual (PCR) SARS-CoV-2 RNA (RT-PCR) Blood Type Antibody Screen Crossmatch 09/19/23 09/19/23 09/19/23 06:42 07:13 11:09 WBC 8.3 RBC 2.82 L Hgb 8.5 L Hct 25.1 L MCV 89.0 MCH 30.1 MCHC 33.9 RDW 17.3 H Plt Count 204 MPV 9.9 Immature Gran % (Auto) 0.5 H Neut % (Auto) 76.7 H Lymph % (Auto) 13.3 L [place] % (Auto) 6.0 Eos % (Auto) 3.0 Baso % (Auto) 0.5 Lymph # (Auto) 1.1 L [place] # (Auto) 0.5 Eos # (Auto) 0.3 Baso # (Auto) 0.0 Abs Immat Gran (auto) 0.04 H Absolute Neuts (auto) 6.4 Absolute Nucleated RBC 0.000 Nucleated RBC % (auto) 0.0 Neutrophils % (Manual) Band Neutrophils % Lymphocytes % (Manual) Monocytes % (Manual) Eosinophils % (Manual) Basophils % (Manual) Metamyelocytes % Myelocytes % Abs Neuts (Manual) Lymphocytes # (Manual) Monocytes # (Manual) Eosinophils # (Manual) Basophils # (Manual) Metamyelocytes # Myelocytes # Nucleated RBCs Smudge Cells Toxic Granulation Toxic Vacuolation Dohle Bodies Platelet Estimate Large Platelets Plt Morphology Comment RBC Morphology Polychromasia Hypochromasia Basophilic Stippling Microcytosis Macrocytosis Spherocytes Target Cells Tear Drop Cells Ovalocytes Stomatocytes Hernandez-Blakeslee Bodies Hilario Cells Schistocytes Smear Tech's Comments Smear Path Review Hold Purple Top PT INR O2 Saturation ABG pH at Pt Temp ABG pCO2 at Pt Temp ABG pO2 at Pt Temp ABG HCO3 ABG Base Excess (Actual) VBG pH VBG pCO2 VBG pO2 VBG HCO3 VBG O2 Saturation VBG Base Excess Sodium 139 Potassium 3.2 L Chloride 101 Carbon Dioxide 28 Anion Gap 13 BUN 47 H Creatinine 1.60 H Estim Creat Clear Calc 49.5 Estimated GFR 45 POC Glucose 117 H 96 Random Glucose 115 Estimat Average Glucose Hemoglobin A1c % Lactic Acid Lactic Acid F/U @ 2Hr Lactic Acid F/U @ 4Hr Calcium 10.0 D Phosphorus 3.4 Magnesium 1.8 Total Bilirubin 0.5 Direct Bilirubin AST 24 ALT 20 Alkaline Phosphatase 126 H Ammonia Total Creatine Kinase Troponin I High Sens B-Natriuretic Peptide Total Protein 8.9 H Albumin 4.1 Lipase Prostate Specific Ag Procalcitonin TSH Urine Color Urine Appearance Urine pH Ur Specific [place] Urine Protein Urine Glucose (UA) Urine Ketones Urine Blood Urine Nitrite Ur Leukocyte Esterase Urine RBC Urine WBC Ur Squamous Epith Cells Urine Bacteria Hyaline Casts Granular Casts Urine Yeast Nasal Screen MRSA (PCR) Nasal S. aureus Screen Nasal MRSA/S.aureus Interp Stool Occult Blood Random Vancomycin Urine Opiates Screen Ur Buprenorphine Scrn Ur Oxycodone Screen Urine Methadone Screen Urine Fentanyl Screen Ur Barbiturates Screen Ur Phencyclidine Scrn Ur Amphetamines Screen U Benzodiazepines Scrn Urine Cocaine Screen U Marijuana (THC) Screen Ethyl Alcohol Hep Bs Antigen Hep Bs Antibody Hep B Core Total Ab Influenza Type A (PCR) Influenza Type B (PCR) RSV RNA Qual (PCR) SARS-CoV-2 RNA (RT-PCR) Blood Type Antibody Screen Crossmatch 09/19/23 09/19/23 09/20/23 12:22 15:03 06:50 WBC 7.1 RBC 2.53 L Hgb 7.6 L Hct 22.6 L MCV 89.3 MCH 30.0 MCHC 33.6 RDW 17.5 H Plt Count 171 MPV 9.1 L Immature Gran % (Auto) 0.3 Neut % (Auto) 57.6 Lymph % (Auto) 21.9 [place] % (Auto) 8.9 Eos % (Auto) 10.7 H Baso % (Auto) 0.6 Lymph # (Auto) 1.6 [place] # (Auto) 0.6 Eos # (Auto) 0.8 H Baso # (Auto) 0.0 Abs Immat Gran (auto) 0.02 Absolute Neuts (auto) 4.1 Absolute Nucleated RBC 0.000 Nucleated RBC % (auto) 0.0 Neutrophils % (Manual) Band Neutrophils % Lymphocytes % (Manual) Monocytes % (Manual) Eosinophils % (Manual) Basophils % (Manual) Metamyelocytes % Myelocytes % Abs Neuts (Manual) Lymphocytes # (Manual) Monocytes # (Manual) Eosinophils # (Manual) Basophils # (Manual) Metamyelocytes # Myelocytes # Nucleated RBCs Smudge Cells Toxic Granulation Toxic Vacuolation Dohle Bodies Platelet Estimate Large Platelets Plt Morphology Comment RBC Morphology Polychromasia Hypochromasia Basophilic Stippling Microcytosis Macrocytosis Spherocytes Target Cells Tear Drop Cells Ovalocytes Stomatocytes Hernandez-Blakeslee Bodies Hilario Cells Schistocytes Smear Tech's Comments Smear Path Review Hold Purple Top PT INR O2 Saturation ABG pH at Pt Temp ABG pCO2 at Pt Temp ABG pO2 at Pt Temp ABG HCO3 ABG Base Excess (Actual) VBG pH VBG pCO2 VBG pO2 VBG HCO3 VBG O2 Saturation VBG Base Excess Sodium 142 Potassium 3.3 Chloride 106 Carbon Dioxide 27 Anion Gap 12 BUN 33 H Creatinine 1.46 H Estim Creat Clear Calc 52.3 Estimated GFR 50 POC Glucose 125 H Random Glucose 129 H Estimat Average Glucose Hemoglobin A1c % Lactic Acid Lactic Acid F/U @ 2Hr Lactic Acid F/U @ 4Hr Calcium 9.5 Phosphorus 2.9 Magnesium 1.6 Total Bilirubin 0.5 Direct Bilirubin AST 21 ALT 17 Alkaline Phosphatase 105 Ammonia Total Creatine Kinase Troponin I High Sens B-Natriuretic Peptide Total Protein 7.6 Albumin 3.6 Lipase Prostate Specific Ag Procalcitonin TSH Urine Color Yellow Urine Appearance Cloudy Urine pH 6.5 Ur Specific [place] 1.015 Urine Protein 100 (2+) H Urine Glucose (UA) 100 H Urine Ketones Negative Urine Blood Small (1+) H Urine Nitrite Negative Ur Leukocyte Esterase Trace H Urine RBC 0-2 Urine WBC 0-5 Ur Squamous Epith Cells 0-2 Urine Bacteria None Seen Hyaline Casts 0-2 Granular Casts Urine Yeast Present Nasal Screen MRSA (PCR) Nasal S. aureus Screen Nasal MRSA/S.aureus Interp Stool Occult Blood Random Vancomycin Urine Opiates Screen Ur Buprenorphine Scrn Ur Oxycodone Screen Urine Methadone Screen Urine Fentanyl Screen Ur Barbiturates Screen Ur Phencyclidine Scrn Ur Amphetamines Screen U Benzodiazepines Scrn Urine Cocaine Screen U Marijuana (THC) Screen Ethyl Alcohol Hep Bs Antigen Hep Bs Antibody Hep B Core Total Ab Influenza Type A (PCR) Influenza Type B (PCR) RSV RNA Qual (PCR) SARS-CoV-2 RNA (RT-PCR) Blood Type Antibody Screen Crossmatch 09/20/23 09/20/23 09/21/23 10:00 21:30 06:01 WBC 7.4 RBC 2.61 L Hgb 7.9 L Hct 24.0 L MCV 92.0 MCH 30.3 MCHC 32.9 RDW 17.2 H Plt Count 142 L MPV 9.0 L Immature Gran % (Auto) 0.3 Neut % (Auto) 58.2 Lymph % (Auto) 21.9 [place] % (Auto) 8.3 Eos % (Auto) 10.6 H Baso % (Auto) 0.7 Lymph # (Auto) 1.6 [place] # (Auto) 0.6 Eos # (Auto) 0.8 H Baso # (Auto) 0.1 Abs Immat Gran (auto) 0.02 Absolute Neuts (auto) 4.3 Absolute Nucleated RBC 0.000 Nucleated RBC % (auto) 0.0 Neutrophils % (Manual) Band Neutrophils % Lymphocytes % (Manual) Monocytes % (Manual) Eosinophils % (Manual) Basophils % (Manual) Metamyelocytes % Myelocytes % Abs Neuts (Manual) Lymphocytes # (Manual) Monocytes # (Manual) Eosinophils # (Manual) Basophils # (Manual) Metamyelocytes # Myelocytes # Nucleated RBCs Smudge Cells Toxic Granulation Toxic Vacuolation Dohle Bodies Platelet Estimate Large Platelets Plt Morphology Comment RBC Morphology Polychromasia Hypochromasia Basophilic Stippling Microcytosis Macrocytosis Spherocytes Target Cells Tear Drop Cells Ovalocytes Stomatocytes Hernandez-Blakeslee Bodies Hilario Cells Schistocytes Smear Tech's Comments Smear Path Review Hold Purple Top PT INR O2 Saturation ABG pH at Pt Temp ABG pCO2 at Pt Temp ABG pO2 at Pt Temp ABG HCO3 ABG Base Excess (Actual) VBG pH VBG pCO2 VBG pO2 VBG HCO3 VBG O2 Saturation VBG Base Excess Sodium 141 Potassium 3.9 Chloride 105 Carbon Dioxide 28 Anion Gap 12 BUN 24 H Creatinine 1.28 Estim Creat Clear Calc 59.6 Estimated GFR 58 POC Glucose 107 81 Random Glucose 105 Estimat Average Glucose Hemoglobin A1c % Lactic Acid Lactic Acid F/U @ 2Hr Lactic Acid F/U @ 4Hr Calcium 10.0 Phosphorus 2.3 L Magnesium 1.4 L* Total Bilirubin 0.5 Direct Bilirubin AST 23 ALT 18 Alkaline Phosphatase 103 Ammonia Total Creatine Kinase Troponin I High Sens B-Natriuretic Peptide Total Protein 7.9 Albumin 3.7 Lipase Prostate Specific Ag Procalcitonin TSH Urine Color Urine Appearance Urine pH Ur Specific [place] Urine Protein Urine Glucose (UA) Urine Ketones Urine Blood Urine Nitrite Ur Leukocyte Esterase Urine RBC Urine WBC Ur Squamous Epith Cells Urine Bacteria Hyaline Casts Granular Casts Urine Yeast Nasal Screen MRSA (PCR) Nasal S. aureus Screen Nasal MRSA/S.aureus Interp Stool Occult Blood Random Vancomycin Urine Opiates Screen Ur Buprenorphine Scrn Ur Oxycodone Screen Urine Methadone Screen Urine Fentanyl Screen Ur Barbiturates Screen Ur Phencyclidine Scrn Ur Amphetamines Screen U Benzodiazepines Scrn Urine Cocaine Screen U Marijuana (THC) Screen Ethyl Alcohol Hep Bs Antigen Hep Bs Antibody Hep B Core Total Ab Influenza Type A (PCR) Influenza Type B (PCR) RSV RNA Qual (PCR) SARS-CoV-2 RNA (RT-PCR) Blood Type Antibody Screen Crossmatch 09/21/23 09/21/23 09/21/23 09:56 19:50 22:38 WBC RBC Hgb Hct MCV MCH MCHC RDW Plt Count MPV Immature Gran % (Auto) Neut % (Auto) Lymph % (Auto) [place] % (Auto) Eos % (Auto) Baso % (Auto) Lymph # (Auto) [place] # (Auto) Eos # (Auto) Baso # (Auto) Abs Immat Gran (auto) Absolute Neuts (auto) Absolute Nucleated RBC Nucleated RBC % (auto) Neutrophils % (Manual) Band Neutrophils % Lymphocytes % (Manual) Monocytes % (Manual) Eosinophils % (Manual) Basophils % (Manual) Metamyelocytes % Myelocytes % Abs Neuts (Manual) Lymphocytes # (Manual) Monocytes # (Manual) Eosinophils # (Manual) Basophils # (Manual) Metamyelocytes # Myelocytes # Nucleated RBCs Smudge Cells Toxic Granulation Toxic Vacuolation Dohle Bodies Platelet Estimate Large Platelets Plt Morphology Comment RBC Morphology Polychromasia Hypochromasia Basophilic Stippling Microcytosis Macrocytosis Spherocytes Target Cells Tear Drop Cells Ovalocytes Stomatocytes Hernandez-Blakeslee Bodies Pelzer Cells Schistocytes Smear Tech's Comments Smear Path Review Hold Purple Top PT INR O2 Saturation ABG pH at Pt Temp ABG pCO2 at Pt Temp ABG pO2 at Pt Temp ABG HCO3 ABG Base Excess (Actual) VBG pH VBG pCO2 VBG pO2 VBG HCO3 VBG O2 Saturation VBG Base Excess Sodium Potassium Chloride Carbon Dioxide Anion Gap BUN Creatinine Estim Creat Clear Calc Estimated GFR POC Glucose 93 147 H 61 Random Glucose Estimat Average Glucose Hemoglobin A1c % Lactic Acid Lactic Acid F/U @ 2Hr Lactic Acid F/U @ 4Hr Calcium Phosphorus Magnesium Total Bilirubin Direct Bilirubin AST ALT Alkaline Phosphatase Ammonia Total Creatine Kinase Troponin I High Sens B-Natriuretic Peptide Total Protein Albumin Lipase Prostate Specific Ag Procalcitonin TSH Urine Color Urine Appearance Urine pH Ur Specific [place] Urine Protein Urine Glucose (UA) Urine Ketones Urine Blood Urine Nitrite Ur Leukocyte Esterase Urine RBC Urine WBC Ur Squamous Epith Cells Urine Bacteria Hyaline Casts Granular Casts Urine Yeast Nasal Screen MRSA (PCR) Nasal S. aureus Screen Nasal MRSA/S.aureus Interp Stool Occult Blood Random Vancomycin Urine Opiates Screen Ur Buprenorphine Scrn Ur Oxycodone Screen Urine Methadone Screen Urine Fentanyl Screen Ur Barbiturates Screen Ur Phencyclidine Scrn Ur Amphetamines Screen U Benzodiazepines Scrn Urine Cocaine Screen U Marijuana (THC) Screen Ethyl Alcohol Hep Bs Antigen Hep Bs Antibody Hep B Core Total Ab Influenza Type A (PCR) Influenza Type B (PCR) RSV RNA Qual (PCR) SARS-CoV-2 RNA (RT-PCR) Blood Type Antibody Screen Crossmatch 09/21/23 23:50 WBC RBC Hgb Hct MCV MCH MCHC RDW Plt Count MPV Immature Gran % (Auto) Neut % (Auto) Lymph % (Auto) [place] % (Auto) Eos % (Auto) Baso % (Auto) Lymph # (Auto) [place] # (Auto) Eos # (Auto) Baso # (Auto) Abs Immat Gran (auto) Absolute Neuts (auto) Absolute Nucleated RBC Nucleated RBC % (auto) Neutrophils % (Manual) Band Neutrophils % Lymphocytes % (Manual) Monocytes % (Manual) Eosinophils % (Manual) Basophils % (Manual) Metamyelocytes % Myelocytes % Abs Neuts (Manual) Lymphocytes # (Manual) Monocytes # (Manual) Eosinophils # (Manual) Basophils # (Manual) Metamyelocytes # Myelocytes # Nucleated RBCs Smudge Cells Toxic Granulation Toxic Vacuolation Dohle Bodies Platelet Estimate Large Platelets Plt Morphology Comment RBC Morphology Polychromasia Hypochromasia Basophilic Stippling Microcytosis Macrocytosis Spherocytes Target Cells Tear Drop Cells Ovalocytes Stomatocytes Hernandez-Blakeslee Bodies Pelzer Cells Schistocytes Smear Tech's Comments Smear Path Review Hold Purple Top PT INR O2 Saturation ABG pH at Pt Temp ABG pCO2 at Pt Temp ABG pO2 at Pt Temp ABG HCO3 ABG Base Excess (Actual) VBG pH VBG pCO2 VBG pO2 VBG HCO3 VBG O2 Saturation VBG Base Excess Sodium Potassium Chloride Carbon Dioxide Anion Gap BUN Creatinine Estim Creat Clear Calc Estimated GFR POC Glucose 116 H Random Glucose Estimat Average Glucose Hemoglobin A1c % Lactic Acid Lactic Acid F/U @ 2Hr Lactic Acid F/U @ 4Hr Calcium Phosphorus Magnesium Total Bilirubin Direct Bilirubin AST ALT Alkaline Phosphatase Ammonia Total Creatine Kinase Troponin I High Sens B-Natriuretic Peptide Total Protein Albumin Lipase Prostate Specific Ag Procalcitonin TSH Urine Color Urine Appearance Urine pH Ur Specific [place] Urine Protein Urine Glucose (UA) Urine Ketones Urine Blood Urine Nitrite Ur Leukocyte Esterase Urine RBC Urine WBC Ur Squamous Epith Cells Urine Bacteria Hyaline Casts Granular Casts Urine Yeast Nasal Screen MRSA (PCR) Nasal S. aureus Screen Nasal MRSA/S.aureus Interp Stool Occult Blood Random Vancomycin Urine Opiates Screen Ur Buprenorphine Scrn Ur Oxycodone Screen Urine Methadone Screen Urine Fentanyl Screen Ur Barbiturates Screen Ur Phencyclidine Scrn Ur Amphetamines Screen U Benzodiazepines Scrn Urine Cocaine Screen U Marijuana (THC) Screen Ethyl Alcohol Hep Bs Antigen Hep Bs Antibody Hep B Core Total Ab Influenza Type A (PCR) Influenza Type B (PCR) RSV RNA Qual (PCR) SARS-CoV-2 RNA (RT-PCR) Blood Type Antibody Screen Crossmatch Airway Mallampati Class: II TM Dist: >3cm Loose/Missing/Broken Teeth: Yes, Upper and Lower Heart: ok Lungs: ok Assessment and Plan Assessment Anesthesia Assessment: Anesthesia Plan Discussed Final Anesthetic Review Family History of Problems with Anesthesia: No History of Problems with Anesthesia: No NPO: Yes ASA Class: IV Final Preanesthetic Review: No Changes in Pt Med Stat, Meds/Allgs Chart Reviewed, Consent Obtained/Reviewed and Anes Risks/Benef Reviewed Patient Risk: High Procedure Risk: Intermediate Anesthetic Plan Anesthetic Plan: Agree w/ Assess. and Plan and TIVA Disposition: Standard PACU
--- NOTE | 2023-09-22 08:44 | W.PM.OPN ---
Operative Note Operative Note Date of Service: 09/22/23 Narrative: FLEXIBLE TRANSORAL UPPER GASTROINTESTINAL ENDOSCOPY WITH BIOPSIES Pre-op diagnosis: Nausea, vomiting, hematemesis, decreased appetite, Post-op diagnosis: Esophageal ulcer, gastritis Endoscopist:? Rudy Watson MD Anesthesia:?MAC UPPER ENDOSCOPY Consent: Indications for the procedure and potential complications of bleeding, perforation, reaction to medications and missed diagnosis were discussed with the patient and informed consent was obtained. Instrument: Olympus GIF H 190 mid size upper endoscope Monitoring: Vital signs and clinical assessment, continuous EKG monitoring, Pulse oximetry, Carbon Dioxide monitoring and blood pressure monitoring were done throughout the procedure. Procedure: The patient was placed in the left lateral decubitis position and pre-procedure medications were administered and a bite block was placed. The endoscope was inserted into the mouth and advanced under direct vision to the third part of duodenum. A careful inspection was made as the upper endoscope was withdrawn including a retroflexed examination of the proximal stomach; Findings and interventions are described below. Findings: Larynx: Normal Esophagus: Tortuous and dilated esophagus with decreased peristalsis due to achalasia. GE junction at 38 cms. A focal 7-8 mm ulcer at GE junction. Stomach: Nodular appearing mucosa in the gastric body and fundus - biopsied. Patchy gastric erythema - biopsies were obtained from the antrum. Grade 2 flap valve with slipped on retroflexed examination of the cardia. Duodenum: Normal bulb and descending duodenum. Biopsies were obtained from 3rd part of the duodenum to check for celiac sprue Intervention: Biopsies as noted above Impression and Post Procedure Diagnosis: Endoscopy Findings: ESOPHAGUS: Tortuous and dilated esophagus with decreased peristalsis due to achalasia. GE junction at 38 cms. A focal 7-8 mm ulcer at GE junction - likely healing Kathryn-Harrell tear and source of hematemsis. STOMACH: Nodular appearing mucosa in the gastric body and fundus - biopsied. Patchy gastric erythema - likely resolving stress gastritis. Plan: OK to transfer pt to rehab on twice daily PPI. I will contact the patient with biopsy results. Above findings were reviewed with the patient. BIOPSIES SHOWED: A. Small bowel, biopsy: Small bowel mucosa within normal limits; preserved villous architecture and no increased intraepithelial lymphocytes seen. B. Stomach, antrum, biopsy: Gastric antral mucosa with mild chronic inactive gastritis; negative for Helicobacter pylori, intestinal metaplasia and dysplasia. C. Stomach, body, biopsy: Gastric body mucosa with mild PPI effect; negative for Helicobacter pylori, intestinal metaplasia and dysplasia
--- NOTE | 2023-09-22 09:13 | MHC.SHP ---
Pre-Procedural Eval Section A - 24 Hr Update-Section A only Date of Service: 09/22/23 The patient is an INPATIENT: Yes Changes since office visit: Yes New Medical Problems, Yes Changes in Medication and Yes Patient answered all questions; No Cold of Flu in the past 2 weeks The patient has been examined within 24 hours of the surgical procedure. The History & Physical has been completed within 30 days and I have reviewed it.: Yes Section B - Complete if H&P > 30 days Chief Complaint: Acute hypoxemic respiratory failure Allergies: Allergies Allergy/AdvReac Type Severity Reaction Status Date / Time trazodone [TRAZODONE] Allergy Severe FACIAL Verified 08/19/23 02:58 SWELLING, swelling cat dander [CATS] Allergy Intermediate FACIAL Verified 08/19/23 02:58 ITCHING doxepin [DOXEPIN] Allergy Intermediate WEIGHT Verified 08/19/23 02:58 GAIN/LEG SWELLING Iodinated Contrast Media Allergy Intermediate ITCHING Verified 08/19/23 02:58 [IV DYE, IODINE CONTAINING CONTRAST ] nitroglycerin [NITROGLYCERIN] Allergy Unknown UNKNOWN Verified 08/19/23 02:58 tramadol [TRAMADOL] Allergy Unknown UNKNOWN, Verified 08/19/23 02:58 dry mouth ibuprofen [From MOTRIN] AdvReac Intermediate GI UPSET Verified 08/19/23 02:58 quetiapine [From SEROQUEL] AdvReac Intermediate FACIAL Verified 08/19/23 02:58 SWELLING aspirin [ASPIRIN] AdvReac Mild Stomach Verified 08/19/23 02:58 Upset Ibuprofen Allergy Unknown stomach Uncoded 08/19/23 02:58 ache IV contrast Allergy Unknown Unknown Uncoded 08/03/23 20:27 Motrin Allergy Unknown stomach Uncoded 08/03/23 20:27 pain Plan Diagnosis/Plan: Unchanged I have reviewed the history and physical and performed a pertinent physical examination on my patient. No changes have occurred unless specified. Time Spent With Patient Time: Total time managing care of this patient today ____ minutes.
[2023-09-22] MEDS: amLODIPine Besylate 10 MG TABLET PO (09:48)
[2023-09-22] MEDS: Metoprolol Tartrate 25 MG TABLET PO ×2 (09:48→19:51)
[2023-09-22] MEDS: OLANZapine 5 MG TABLET PO ×2 (09:48→19:50)
[2023-09-22] MEDS: Tamsulosin HCL 0.4 MG CAPSULE PO (09:49)
[2023-09-22] MEDS: Lidocaine 4 % Patch ADH..PATCH 2 PATCH TRANSDERMA (09:50)
[2023-09-22] MEDS: Nystatin Cream 15 GM TUBE 1 APPL TOPICAL ×2 (09:51→20:02)
[2023-09-22 09:58] LABS: Glucose, Whole Blood 99 mg/dL (60-115)
--- NOTE | 2023-09-22 11:28 | HO.PM.IMPN ---
Subjective Subjective Date of Service: 09/22/23 Interval History: Had EGD this morning showing a healing GE junction ulcer, not actively bleeding, likely MWT had an isolated temp of 101 this morning with a normal temp just 20 minutes earlier and resolving within a hour and normal temps since. Physical Exam Vital Signs: Vital Signs: Last Vital Signs Temp 98.6 F 09/22/23 09:40 Pulse 83 09/22/23 09:48 Resp 18 09/22/23 09:40 BP 151/77 H 09/22/23 09:48 Pulse Ox 99 09/22/23 09:40 O2 Del Method Room Air 09/22/23 09:40 O2 Flow Rate 2 09/22/23 09:04 FiO2 21 09/15/23 12:00 BMI result Body Mass Index 22.0 .alert, oriented to self place, no distress cv RRR S1S2, lungs cta abd S, NT, ND, +BS Ext: no edema, Neuro: NF Objective Data Active Medications Acetaminophen (Acetaminophen 325 Mg Tablet) 975 mg PO Q6H PRN PRN Reason: pain, headache or fever Last Admin: 09/21/23 04:58 Dose: 975 mg Documented By: ALICIA Amlodipine Besylate (Amlodipine Besylate 10 Mg Tablet) 10 mg PO DAILY JAMES; Protocol Last Admin: 09/22/23 09:48 Dose: 10 mg Documented By: KI Diphenhydramine HCl (Diphenhydramine Hcl 25 Mg Capsule) 50 mg PO Q6H PRN PRN Reason: Itching or insomnia Last Admin: 09/21/23 04:56 Dose: 50 mg Documented By: ALICIA Enoxaparin Sodium (Enoxaparin Sodium 40 Mg/0.4 Ml Syringe) 40 mg SUBCUT Q24H JAMES Last Admin: 09/22/23 10:09 Dose: Not Given Documented By: KI Non-Admin Reason: Physician Held Med Glucose (Glucose Gel 15 Gm Gel..Gram.) 15 gm PO Q15M PRN; Protocol PRN Reason: per Hypoglycemia Standing Ord. Dextrose (D10) 250 mls @ 750 mls/hr IV Q15M PRN; Protocol PRN Reason: per Hypoglycemia Standing Ord. Lidocaine (Lidocaine 4 % Patch Adh..Patch) 2 patch TRANSDERMA DAILY JAMES; Protocol Last Admin: 09/22/23 09:50 Dose: 2 patch Documented By: KI Metoprolol Tartrate (Metoprolol Tartrate 25 Mg Tablet) 25 mg PO BID [facility]; Protocol Last Admin: 09/22/23 09:48 Dose: 25 mg Documented By: KI Mirtazapine (Mirtazapine 15 Mg Tablet) 15 mg PO BEDTIME [facility] Last Admin: 09/21/23 20:54 Dose: 15 mg Documented By: GILMA Morphine Sulfate (Morphine Sulfate 2 Mg/Ml Cartridge) 2 mg IVPUSH Q6H PRN PRN Reason: Pain, Severe (Pain Scale 7-10) Last Admin: 09/22/23 09:48 Dose: 2 mg Documented By: KI Nystatin (Nystatin Cream 15 Gm Tube) 1 appl TOPICAL BID [facility]; Protocol Last Admin: 09/22/23 09:51 Dose: 1 appl Documented By: KI Olanzapine (Olanzapine 5 Mg Tablet) 5 mg PO BID [facility] Last Admin: 09/22/23 09:48 Dose: 5 mg Documented By: KI Olanzapine (Olanzapine 2.5 Mg Tablet) 2.5 mg PO DAILY PRN PRN Reason: anxiety/agitation Last Admin: 09/20/23 23:46 Dose: 2.5 mg Documented By: ALICIA Ondansetron HCl (Ondansetron Hcl 4 Mg/2 Ml Vial) 4 mg IVPUSH Q4H PRN PRN Reason: Nausea and Vomiting Last Admin: 09/19/23 23:48 Dose: 4 mg Documented By: CECILIA Pantoprazole Sodium (Pantoprazole Sodium 40 Mg/10 Ml Vial) 40 mg IVPUSH BID@0630,1630 [facility] Last Admin: 09/22/23 06:00 Dose: 40 mg Documented By: NATALIA Polyethylene Glycol (Polyethylene Glycol 3350 17 Gm Powd.Pack) 17 gm PO DAILY [facility] Last Admin: 09/22/23 10:08 Dose: Not Given Documented By: KI Non-Admin Reason: Patient Refused Prochlorperazine Edisylate (Prochlorperazine Edisylate 10 Mg/2 Ml Vial) 5 mg IVPUSH Q4H PRN PRN Reason: Nausea and Vomiting Last Admin: 09/20/23 03:30 Dose: 5 mg Documented By: CECILIA Comments: Nausea Sodium Chloride (0.9 % Sodium Chloride Flush 3 Ml Syringe) 3 ml IVFLUSH QSHIFT [facility] Last Admin: 09/22/23 09:50 Dose: 3 ml Documented By: KI Tamsulosin HCl (Tamsulosin Hcl 0.4 Mg Capsule) 0.4 mg PO DAILY [facility] Last Admin: 09/22/23 09:49 Dose: 0.4 mg Documented By: CHEYANNEFEROGER Zolpidem Tartrate (Zolpidem Tartrate 5 Mg Tablet) 5 mg PO BEDTIME [facility] Last Admin: 09/21/23 22:28 Dose: 5 mg Documented By: GILMA Labs 09/22/23 12:58 09/22/23 11:50 Labs: Laboratory Results - last 24 hr 09/21/23 09/21/23 09/21/23 19:50 22:38 23:50 POC Glucose 147 H 61 116 H 09/22/23 09:53 POC Glucose 99 Microbiology Microbiology Results: Microbiology 09/19/23 06:42 Blood Culture - Preliminary Blood - Venous No growth after 48 hours. 09/19/23 06:47 Blood Culture - Preliminary Blood - Venous No growth after 48 hours. Assessment and Plan (1) Anoxic brain injury: Status: Acute (2) Acute renal failure: Status: Acute Plan 55-make admitted through the ICU on 08/18, His past medical history includes depression, GERD, dysphagia, BPH, bipolar disorder, anemia, alcohol and opiate abuse, anxiety, GI bleed who was found obtunded and admitted with rhabdomyolysis, acute kidney injury and shock. Additionally, he developed aspiration pneumonia and was found to have gram-negative fitz sepsis, gastrointestinal bleed, and acute blood anemia. Fever--isolated with no other source of infection, monitor if recurrent seizures then culture and further work up Toxic Metabolic encephalopathy--d/t anoxic brain injury (noted on MRI, slowing on EEG) renal failure, rhabdomylsosi. Overall is making good recovery. -continue goal directed treatment Acute hypoxic resp failure d/t Overdose and sepsis 2/2 aspiration PNA, required reintubation, doing well on room air. completed 10 days antibiotics, wbc normal, no fever. 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 now off dialysis and catheter removed Metabolic acidosis--multifactorial, resolved. HTN--BP on high side, continue Norvasc 10 mg daily, continue metoprolol 25 mg bid Hx drug abuse, no seeking behaviors, addiction med to assess prior to dc Anemia/gib likely upper gib from gastric and esophageal iriatation, s/p 1 unit or RBC on 09/12, h/h stable. Continue IV PPI bid, at DC change to twice daily x 2 weeks, then once daily per GI recommendation. EGD 09/21 ulcer at GE junction - likely healing Kathryn-Harrell tear and source of hematemsis. STOMACH: Nodular appearing mucosa in the gastric body and fundus - biopsied. Patchy gastric erythema - likely resolving stress gastritis. Plan bid po PPI abd pain n/v, CT showed no acute finding, PPI as above Lovenox for DVT prophylaxis Need for inpatient: recoverying from complicated medical course as above DC to rehab if no fever within next 24 hours Quality Stroke Does the patient have a stroke diagnosis?: No VTE Prior VTE?: No VTE Risk Level:: Medical - low VTE Device Contraindication: N/A - Device Ordered VTE Drug Contraindication: N/A - Med Ordered
[2023-09-22 12:17] LABS: Anion Gap 13 (12-20); Blood Urea Nitrogen 18 mg/dL (9-16); Calcium 9.9 mg/dL (8.4-10.2); Carbon Dioxide 25 mmol/L (22-29); Chloride 107 mmol/L (96-108); Creatinine Clr Calc Pharmacy 80.5; Estimated Glomerular Filt Rate > 60; Glucose Random 79 mg/dL (60-115); Potassium 3.9 mmol/L (3.3-5.1); Sodium 141 mmol/L (135-145)
[2023-09-22 13:07] LABS: Hematocrit 25.8 % (42.0-52.0); Hemoglobin 8.7 g/dl (14.0-18.0); Mean Corpuscular HGB Conc 33.7 g/dl (31.0-36.0); Mean Corpuscular Hemoglobin 30.3 pg (27.0-33.0); Mean Corpuscular Volume 89.9 fL (80.0-98.0); Mean Platelet Volume 8.7 fL (9.4-12.4); Platelet Count 129 X10*3/uL (160-400); Red Blood Count 2.87 X10*6/uL (4.60-5.80); Red Cell Distribution Width 16.9 % (11.0-16.0); White Blood Count 8.5 X10*3/uL (4.8-10.8)
--- NOTE | 2023-09-22 15:36 | MHC.SPEECHCO ---
Pt is seen in the afternoon. He is tremulous at rest. He reports he did not eat much lunch 2/2 low appetite. He declines any offers on PO politely. [facility] on staff did not work with him for Lunch.
[2023-09-22] MEDS: Omeprazole 40 MG CAPSULE.DR PO (18:20)
[2023-09-22] MEDS: Mirtazapine 15 MG TABLET PO (19:50)
[2023-09-22] MEDS: Zolpidem Tartrate 5 MG TABLET PO (19:51)
[2023-09-22 21:41] LABS: Glucose, Whole Blood 150 mg/dL (60-115)
[2023-09-23] VITALS (8 sets, daily range): BP systolic 122–160; BP diastolic 65–82; PULSE 85–100; RESP 18–20; TEMP 36.5–37.2; O2SAT 95–99; BMI 21.7
[2023-09-23] MEDS: Morphine Sulfate 2 MG/ML CARTRIDGE IVPUSH ×3 (00:19→14:07)
[2023-09-23] MEDS: Omeprazole 40 MG CAPSULE.DR PO ×2 (06:19→15:58)
[2023-09-23] MEDS: 0.9 % Sodium Chloride Flush 3 ML SYRINGE IVFLUSH (07:44)
[2023-09-23] MEDS: Lidocaine 4 % Patch ADH..PATCH 2 PATCH TRANSDERMA (07:44)
[2023-09-23] MEDS: Metoprolol Tartrate 25 MG TABLET PO (07:45)
[2023-09-23] MEDS: Tamsulosin HCL 0.4 MG CAPSULE PO (07:45)
[2023-09-23] MEDS: OLANZapine 5 MG TABLET PO (07:45)
[2023-09-23] MEDS: amLODIPine Besylate 10 MG TABLET PO (07:45)
[2023-09-23] MEDS: Nystatin Cream 15 GM TUBE 1 APPL TOPICAL (07:45)
[2023-09-23] MEDS: polyethylene glycoL 3350 17 GM POWD.PACK PO (07:46)
--- NOTE | 2023-09-23 07:52 | HO.POSTANES ---
Post Anesthesia Evaluation Post Anesthesia Evaluation Date of Service: 09/22/23 Vital Signs: Vital Signs Temp Pulse Resp BP Pulse Ox O2 Del Method 09/23/23 07:45 85 135/65 09/23/23 07:45 135/65 09/23/23 07:34 98.2 F 85 18 135/65 98 Room Air 09/23/23 04:25 98.5 F 91 18 144/73 H 97 Room Air 09/23/23 01:08 98.9 F 100 20 160/82 H 98 Room Air 09/22/23 21:53 98.4 F 88 16 124/69 99 Room Air Anesthesia: TIVA Mental Status: Awake Pain Control: Satisfactory Nausea/Vomiting: None Hydration: Adequate Anesthesia-Related Issues: No Anes. Related Issues
[2023-09-23 09:52] LABS: Glucose, Whole Blood 166 mg/dL (60-115)
--- NOTE | 2023-09-23 10:41 | MHC.CM.PN ---
PER HOSPITALIST SCOTT PT WILL BE MEDICALLY CLEARED FOR DC TO [facility] FOR [facility] FOR BLS TRANSPORT
--- NOTE | 2023-09-23 10:56 | MHC.CLN ---
F/U PO INTAKE 50% X1 MEAL RECORDED PT REPORTS LOW APPETITE REVIEWED LABS DIET RX: REGULAR-FOLLOWED BY [employer] PT RECEIVING ENSURE TID TO INCREASE KCALS PROVIDES 1050KCALS, 60G PROTEIN MONITOR PO INTAKE AND ENCOURAGE SUPPLEMENTS RD TO FOLLOW WEEKLY
--- NOTE | 2023-09-23 12:59 | P.DS_ITS ---
DS: Providers Provider Date of Service: 09/23/23 Date of admission: 08/19/23 10:55 Primary care physician: Patrick Ly MD Consults: 09/04/23 15:04 Consult to Nephrology Routine Consulting Provider: [facility] Reason for consultation: Please evaluate for hemodialysis Has provider been notified: No 09/09/23 08:06 Consult to Infectious Diseases Routine Consulting Provider: [facility] Reason for consultation: FUO Has provider been notified: No 09/11/23 15:26 Consult to Wound Care Routine Reason for consultation: maceration coccyx & gluteal folds. Has provider been notified: Yes 09/15/23 10:06 Consult to Neurology Routine Consulting Provider: [facility] Reason for consultation: Neuro Prognosis Has provider been notified: Yes 09/18/23 10:11 Addiction Medicine Routine Consulting Provider: Addiction [facility] Reason for consultation: Hx drug abuse for eval and rec. 09/18/23 13:53 Consult to Psychiatry Routine Consulting Provider: Psych Cover[facility] Reason for consultation: off Meds for a month, deconditioning, for psych medications advice. 09/19/23 12:15 Consult to Gastroenterology Routine Consulting Provider: Rudy Watson Reason for consultation: gi bleeding, anemia, esophagitis 09/23/23 01:16 Consult to Wound Care Routine Reason for consultation: peeling skin to entire body.? cream DS: Diagnosis Discharge Diagnosis (1) Anoxic brain injury: Status: Acute (2) Acute renal failure: Status: Acute DS: Summary Hospital Course Hospital Course: admission [facility] Attending physician on admission: Tylor Coyle Chief Complaint: Unresponsive Mr. Jerson Taveras is a 53-year-old male with PMH of depression, GERD, dysphagia, BPH, bipolar, anemia, alcohol and opiate abuse, anxiety, GI bleed, achalasia s/p heller myotomy and balloon dilations was found unresponsive at home so EMS was called. Upon arrival of the EMS on Thursday was found to have pinpoint pupils with apneic breathing so was brought into the was intubated and placed on ventilator support, he is also found to be in shock needing Levophed support, acute kidney injury, rhabdomyolysis and a right-sided aspiration pneumonia for which MICU was consulted for admission. Hospital course: A 53-year-old male was admitted to the ICU on 08/18. His past medical history includes depression, GERD, dysphagia, BPH, bipolar disorder, anemia, alcohol and opiate abuse, anxiety, GI bleeding, and achalasia status post Heller myotomy and balloon dilations. He was found unresponsive at home with pinpoint pupils and apnea, necessitating intubation by EMS. He was diagnosed with rhabdomyolysis, acute kidney injury (NAOMI), and shock, for which levophed was initiated. He also developed aspiration pneumonia and was diagnosed with gram-negative fitz sepsis, gastrointestinal bleeding, and acute blood loss anemia. The patient remained intubated from admission until September 05 and was transferred to the medical floor on September 06. He began hemodialysis due to renal failure, likely acute tubular necrosis (ATN) associated with uremia. On 09/11/23, he developed acute hypoxic respiratory failure again, attributed to aspiration pneumonia, leading to reintubation and treatment with intravenous antibiotics. He was successfully extubated again on 09/15 and transferred to the medical floor, where he continues to recover. Problems Toxic Metabolic encephalopathy--d/t anoxic brain injury (noted on MRI, slowing on EEG) renal failure, rhabdomylsosi. Overall is making good recovery, alert and oriented x3 -continue goal directed treatment Acute hypoxic resp failure d/t Overdose and sepsis 2/2 aspiration PNA, required reintubation, doing well on room air. completed 10 days antibiotics, wbc normal, no fever. 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 dialysis and catheter removed Metabolic acidosis--multifactorial, resolved. HTN--BP on high side, continue Norvasc 10 mg daily, continue metoprolol 25 mg bid Anemia/gib likely upper gib from gastric and esophageal iriatation, s/p 1 unit or RBC on 09/12, h/h stable. He was on IV PPI bi. EGD 09/21 showed ulcer at GE junction - likely healing Kathryn-Harrell tear and source of hematemsis. STOMACH: Nodular appearing mucosa in the gastric body and fundus - biopsied and pending. Patchy gastric erythema - likely resolving stress gastritis. Plan bid po PPI FEN--he was on tube in icu but now eating regular diet Metabolic acidosis--due to renal failure, resoled Hypercalcemia--resolved. BiPolar/mood disorder--med have been on hold for the most part except for remron and Zyprexa Physical deconditioning due to prolonged hospitalization...to short terrm rehab Time Attestation Discharge Coordination Time (in mins): 50 Quality: Safe Use of Opioids Does Pt have an Active Cancer Diagnosis on the Problem List?: No Quality: Stroke Does the patient have a stroke diagnosis?: No Physical Exam Vital Signs: Vital Signs: Last Vital Signs Temp 98.4 F 09/23/23 11:13 Pulse 86 09/23/23 11:13 Resp 20 09/23/23 11:13 BP 122/67 09/23/23 11:13 Pulse Ox 99 09/23/23 11:13 O2 Del Method Room Air 09/23/23 11:13 O2 Flow Rate 2 09/22/23 09:04 FiO2 21 09/15/23 12:00 BMI result Body Mass Index 21.7 DS: Data Data Completed and Pending Completed studies during hospitalization [Text1]: Procedures Detoxification Services for Substance Abuse Treatment (07/26/20) Pending studies at discharge: Pending at discharge 09/22/23 08:50 Surgical [PTH] Routine Labs on day of discharge: Laboratory Results - last 24 hr 09/22/23 09/22/23 09/23/23 12:58 21:38 09:49 WBC 8.5 RBC 2.87 L Hgb 8.7 L Hct 25.8 L MCV 89.9 MCH 30.3 MCHC 33.7 RDW 16.9 H Plt Count 129 L MPV 8.7 L Absolute Nucleated RBC 0.000 Nucleated RBC % (auto) 0.0 POC Glucose 150 H 166 H Preliminary micro results at discharge 09/19/23 06:42 Blood Culture - Preliminary Blood - Venous No growth after 48 hours. 09/19/23 06:47 Blood Culture - Preliminary Blood - Venous No growth after 48 hours. Discharge Plan Discharge Anticipated Discharge Date/Time: 09/23/23 11:01 Patient Disposition: Xfer SNF Discharge Diagnosis: Aucte respiratory failure, renal failure, aspiration, pneumonia, anoxic brain injury, GI bleeding, anemia, Referrals: [facility] [Outside] - 1 Day (Short Term Rehab) Patrick Ly MD [Primary Care Provider] - 1 Week Discharge Medications: New olanzapine 5 mg Tablet 5 mg PO BID Qty: 60 0RF olanzapine 2.5 mg Tablet 2.5 mg PO DAILY PRN (Reason: anxiety/agitation) Qty: 30 0RF omeprazole 40 mg Capsule,Delayed Release(Dr/Ec) 40 mg PO BID@0630,1630 Qty: 60 0RF tamsulosin 0.4 mg Capsule 0.4 mg PO DAILY Qty: 30 0RF amlodipine 10 mg Tablet 10 mg PO DAILY Qty: 30 0RF Protocol: Hold for SBP< HOLD for SBP < : 90 zolpidem 5 mg Tablet 5 mg PO BEDTIME Qty: 30 0RF metoprolol tartrate 25 mg Tablet 25 mg PO BID Qty: 60 0RF Protocol: Hold for SBP/HR < HOLD for SBP < : 90 HOLD for HR < : 60 Continued loperamide [Anti-Diarrheal (loperamide)] 2 mg tablet 2 mg PO Q6H PRN (Reason: Loose Stool) hydroxyzine HCl 50 mg tablet 50 mg PO QID PRN (Reason: anxiety) 30 Days Qty: 90 0RF melatonin 5 mg tablet 10 mg PO BEDTIME PRN (Reason: sleep/early waking) 30 Days Qty: 60 0RF capsaicin 0.025 % cream 1 appl topical TID mirtazapine 15 mg tablet 15 mg PO BEDTIME albuterol sulfate [Ventolin HFA] 90 mcg/actuation HFA aerosol inhaler 2 puff INHALATION Q4-6H PRN (Reason: Shortness Of Breath Or Wheezing) fluticasone propionate 50 mcg/actuation spray,suspension 1 - 2 spray intranasal DAILY metformin 500 mg tablet extended release 24 hr 500 mg PO QPM Rx Instructions: With evening meal cholecalciferol (vitamin D3) 25 mcg (1,000 unit) capsule 25 mcg PO DAILY selenium sulfide 2.5 % lotion 1 appl topical 3XW PRN (Reason: DANDRUFF) Rx Instructions: APPLY TOPICALLY 3 TIMES A WEEK NEEDED. LATHER ON SCALP, LEAVE ON FOR 5 MINUTES, THEN RINSE. (FOR DANDRUFF) sennosides [senna] 8.6 mg tablet 8.6 mg PO BEDTIME PRN (Reason: Constipation) polyethylene glycol 3350 17 gram/dose powder 17 g PO BID PRN (Reason: constipation) Qty: 60 0RF ondansetron 4 mg tablet,disintegrating 4 mg PO Q8H PRN (Reason: nausea/vomiting) Qty: 30 0RF Changed clonazepam 0.5 mg Tablet 0.5 mg PO BID@0900,1700 PRN (Reason: anxiety) 30 Days Qty: 30 0RF Discontinued diphenhydramine HCl [Sindy-Dryl] 25 mg tablet 25 mg PO Q6H PRN (Reason: Itching) olanzapine 5 mg Tablet 5 mg PO DAILY PRN (Reason: agitation) 30 Days Qty: 30 0RF benztropine 0.5 mg tablet 0.5 mg PO BID 30 Days Qty: 60 0RF clonidine HCl 0.2 mg tablet 0.2 mg PO BID 30 Days Qty: 60 0RF amitriptyline 25 mg tablet 25 mg PO BEDTIME 30 Days Qty: 30 0RF omeprazole 20 mg capsule,delayed release(DR/EC) 20 mg PO DAILY 30 Days Qty: 30 0RF amitriptyline 100 mg Tablet 100 mg PO BEDTIME 30 Days Qty: 30 0RF fluphenazine HCl 5 mg tablet 5 mg PO BID 30 Days Qty: 60 0RF zolpidem 12.5 mg tablet,ext release multiphase 12.5 mg PO BEDTIME PRN (Reason: insomnia ) 30 Days Qty: 30 0RF cetirizine 10 mg tablet 10 mg PO DAILY Discharge Orders: Discharge Order (Routine); Ordered 09/23/23 Ordered By: Mehdi Garcia Diet: Advance to usual diet Activity on Discharge: As tolerated Stand Alone Forms: Patient Portal Discharge page Print Language: Mosotho Care Plan Goals: recovery from prolonged hospitaliaztion with aute hypoxic respriatory failure complicated shock, renal failure, sepsis, aspiration, dysphagia gi bleeding, ane isac, Health Concerns: above and cdeconditioned substance abuse Plan of Treatment: To short term rehab for less than 30 days Assessment: see above
--- NOTE | 2023-09-23 13:21 | MHC.SL.SWA ---
Risk of Aspiration Due to: Lethargy Hx of Recent Extubation Dysphasia Diet Status: NO CHANGE Liquid Consistency and Strategies for Safe Swallow: Liquid Intake Recommendation: Thin Liquid Intake Strategies: Small Sips Solid Food Consistency: Dietary Recommendations: Regular Oral Medication Intake: Whole with Puree Please contact the pharmacy regarding appropriate crushable or liquid drug formulations that are available whenever modified delivery is recommended. Compensatory Strategies and Precautions to be Taken for Safe Swallow: Sitting Upright (90 deg) Small Bites and Sips Alternate Liquids/Solids Rate of Ingestion Change Oral Check Avoid Specific Foods Supervision While Eating and Drinking for Safe Swallow: Intermittent Supervision Foods to Avoid: Hard, tough to chew solids Swallowing Recommended Treatments: Compens. Strategy Educat. Recommendation for Speech: Inpatient Speech Therapy Comment: Recommend patient continue with REGULAR solids and THIN liquids. Recommend pills whole in puree/water depending on pt preference. Pt requires some assistance w/ tray (i.e. opening containers, positioning items w/in reach) and intermittent supervision. Recommend 1-2 f/u with CASH MANAGEMENT COORDINATOR to ensure toleration of diet. Skin Drier Clinican/Clinical Fellow: No Supervisory Statement: I have reviewed and agree with the student/clinical fellow's documentation: N/A Speech Language Pathologist: Luda Coleman M.A., CCC-CASH MANAGEMENT COORDINATOR
--- NOTE | 2023-09-23 13:32 | P.PNNP_ITS ---
Subjective Subjective Date of Service: 09/23/23 Interval history: Events noted. All recent data reviewed. Serum creatinine continue to get better Physical Exam 2 Vital Signs: Vital Signs: Last Vital Signs Temp 98.4 F 09/23/23 11:13 Pulse 86 09/23/23 11:13 Resp 20 09/23/23 11:13 BP 122/67 09/23/23 11:13 Pulse Ox 99 09/23/23 11:13 O2 Del Method Room Air 09/23/23 11:13 O2 Flow Rate 2 09/22/23 09:04 FiO2 21 09/15/23 12:00 BMI result Body Mass Index 21.7 Const: General: no acute distress Neck: Neck: Yes supple Resp: Auscultation: diminished lung sounds Cardio: Rate: regular rate GI: Palpation (GI): Soft to palpation Neuro: General: moves all extremities Objective Data Labs 09/22/23 12:58 09/22/23 11:50 Labs: Laboratory Results - last 24 hr 09/22/23 09/23/23 21:38 09:49 POC Glucose 150 H 166 H Microbiology Microbiology Results: Microbiology 09/19/23 06:42 Blood - Venous Blood Culture - Preliminary No growth after 48 hours. 09/19/23 06:47 Blood - Venous Blood Culture - Preliminary No growth after 48 hours. 09/08/23 03:22 Blood - Venous Blood Culture - Final No growth after 5 days. 09/08/23 03:22 Blood - Venous Blood Culture - Final No growth after 5 days. 08/20/23 16:53 Lung - Suctioned Gram Stain - Final 08/20/23 16:53 Lung - Suctioned Sputum Culture - Final Stefanie albicans Stefanie dubliniensis 08/19/23 02:59 Blood - Venous Blood Culture - Final Propionibacterium acnes 08/19/23 02:59 Blood - Venous Blood Culture - Final Propionibacterium acnes 08/19/23 Unknown Urine Catheterized - Bess Catheter Urine Culture - Final No growth. Procedures Date of Service Date of Service: 09/23/23 Assessment & Plan Assessment and plan (1) Acute renal failure: Status: Acute Plan NAOMI due to tubular injury secondary to pigment nephropathy/rhabdomyolysis. Renal function recovering ;HD catheter D/Robbie C/W rest of current management for now Needs outpatient follow-up with a [facility] [place] [place] [facility] after hospital discharge( [phone]) Progress Note: Quality Stroke Does the patient have a stroke diagnosis?: No
[2023-09-23] MEDS: OLANZapine 2.5 MG TABLET PO (15:58)
[2023-09-23 16:01] LABS: Glucose, Whole Blood 121 mg/dL (60-115)
== END 2023-09-23 18:45 | disposition skilled nursing facility (03) | DRG 812 ==
LOC: HO.ED 08:25 → HO.EDOVER 11:01 → HO.ICU 11:09 → HO.IMC 09-07 12:51 → HO.ICU 09-11 13:38 → HO.IMC 09-16 10:24
PROVIDERS: Emergency Medicine; Internal Medicine; Internal Medicine Critical Care Medicine; Internal Medicine Gastroenterology; Internal Medicine Hypertension Specialist; Internal Medicine Pulmonary Disease; Nurse Practitioner Family; Physician Assistant Medical; Registered Nurse Community Health; Student in an Organized Health Care Education/Training Program; Admitting Provider Internal Medicine Critical Care Medicine; Emergency Provider Emergency Medicine; PCP Internal Medicine; Referring Provider Internal Medicine; Visit Provider Internal Medicine
PROC: 0DJ08ZZ Inspection of Upper Intestinal Tract, Via Natural or Artificial Opening Endoscopic (ICD-10-PCS; CPT 43235; principal; 2023-09-22 08:30)
DX: T50.901A Poisoning by unspecified drugs, medicaments and biological substances, accidental (unintentional), initial encounter (principal); J96.01 Acute respiratory failure with hypoxia; N17.0 Acute kidney failure with tubular necrosis; R65.21 Severe sepsis with septic shock; J69.0 Pneumonitis due to inhalation of food and vomit; G92.8 Other toxic encephalopathy; A41.9 Sepsis, unspecified organism; J81.0 Acute pulmonary edema; K22.0 Achalasia of cardia; D62 Acute posthemorrhagic anemia; E87.20 Acidosis, unspecified; F19.10 Other psychoactive substance abuse, uncomplicated; G93.1 Anoxic brain damage, not elsewhere classified; F33.3 Major depressive disorder, recurrent, severe with psychotic symptoms; K20.91 Esophagitis, unspecified with bleeding; F14.10 Cocaine abuse, uncomplicated; K29.71 Gastritis, unspecified, with bleeding; K22.6 Gastro-esophageal laceration-hemorrhage syndrome; E83.52 Hypercalcemia; R13.10 Dysphagia, unspecified; E83.39 Other disorders of phosphorus metabolism; K59.09 Other constipation; N14.11 Contrast-induced nephropathy; F10.20 Alcohol dependence, uncomplicated; E87.5 Hyperkalemia; M62.82 Rhabdomyolysis; F11.10 Opioid abuse, uncomplicated; Z20.822 Contact with and (suspected) exposure to COVID-19; Z79.51 Long term (current) use of inhaled steroids; Z79.84 Long term (current) use of oral hypoglycemic drugs; Z87.891 Personal history of nicotine dependence; Z91.041 Radiographic dye allergy status; Z79.899 Other long term (current) drug therapy
CPT/HCPCS: 0241U; 36415; 36600; 70450; 70486; 70551; 71045; 71250; 72125; 72170; 74176; 80048; 80051; 80053; 80076; 80202; 80307; 81001; 81003; 82040; 82140; 82272; 82550; 82565; 82803; 82947; 83036; 83605; 83690; 83735; 83880; 84100; 84145; 84153; 84443; 84484; 85007; 85014; 85018; 85025; 85027; 85610; 86704; 86706; 86850; 86900; 86901; 86923; 87040; 87070; 87076; 87077; 87086; 87185; 87205; 87340; 87640; 87641; 88305; 88313; 88342; 90999; 92526; 92610; 92950; 93005; 93306; 94002; 94003; 94640; 94799; 95816; 97110; 97116; 97162; 97166; 97530; 97535; 99285; C1758; C9113; J0131; J0692; J0737; J1205; J1644; J1650; J1920; J1939; J1940; J2250; J2251; J2270; J2310; J2405; J2543; J2704; J2765; J2997; J3010; J3370; J3371; J3475; J3480; J7120; P9016; P9047; Q9957

== ENCOUNTER → 2023-08-19 02:20 | Outpatient (BNV) | payer MEDICAID, SELFPAY | PROVIDERS: Emergency Provider Emergency Medicine; Visit Provider Internal Medicine Cardiovascular Disease | DX: R94.31 Abnormal electrocardiogram [ECG] [EKG] (principal) | CPT/HCPCS: 93010 ==

== ENCOUNTER 2023-08-19 10:55 | Outpatient (BNV) | payer MEDICAID, SELFPAY | END 2023-09-10 13:27 | PROVIDERS: Admitting Provider Internal Medicine Critical Care Medicine; Emergency Provider Emergency Medicine; PCP Internal Medicine; Referring Provider Internal Medicine; Visit Provider Internal Medicine Cardiovascular Disease | DX: R50.9 Fever, unspecified (principal); R93.1 Abnormal findings on diagnostic imaging of heart and coronary circulation | CPT/HCPCS: 93306 ==

== ENCOUNTER → 2023-08-19 10:55 | Outpatient (BNV) | payer MEDICAID, SELFPAY | PROVIDERS: Admitting Provider Internal Medicine Critical Care Medicine; Emergency Provider Emergency Medicine; PCP Internal Medicine; Referring Provider Internal Medicine; Visit Provider Internal Medicine Gastroenterology | DX: K22.10 Ulcer of esophagus without bleeding (principal); K29.70 Gastritis, unspecified, without bleeding; R11.2 Nausea with vomiting, unspecified | CPT/HCPCS: 43239 ==

== ENCOUNTER → 2023-08-19 10:55 | Outpatient (BNV) | payer MEDICAID, SELFPAY | PROVIDERS: Admitting Provider Internal Medicine Critical Care Medicine; Emergency Provider Emergency Medicine; Visit Provider Internal Medicine Pulmonary Disease | DX: G93.41 Metabolic encephalopathy (principal); F19.10 Other psychoactive substance abuse, uncomplicated; J69.0 Pneumonitis due to inhalation of food and vomit; J96.01 Acute respiratory failure with hypoxia; N17.9 Acute kidney failure, unspecified | CPT/HCPCS: 36556; 99291 ==

== ENCOUNTER → 2023-08-19 10:55 | Outpatient (BNV) | payer MEDICAID, SELFPAY | PROVIDERS: Admitting Provider Internal Medicine Critical Care Medicine; Emergency Provider Emergency Medicine; PCP Internal Medicine; Referring Provider Internal Medicine; Visit Provider Psychiatry & Neurology Neurology | DX: G93.1 Anoxic brain damage, not elsewhere classified (principal) | CPT/HCPCS: 99223; 99233 ==

== ENCOUNTER → 2023-08-19 10:55 | Outpatient (BNV) | payer MEDICAID, SELFPAY | PROVIDERS: Admitting Provider Internal Medicine Critical Care Medicine; Emergency Provider Emergency Medicine; PCP Internal Medicine; Referring Provider Internal Medicine; Visit Provider Internal Medicine Hypertension Specialist | DX: N17.0 Acute kidney failure with tubular necrosis (principal); M62.82 Rhabdomyolysis | CPT/HCPCS: 90935; 99232; 99233; 99499 ==

== ENCOUNTER → 2023-08-19 10:55 | Outpatient (BNV) | payer MEDICAID, SELFPAY | PROVIDERS: Admitting Provider Internal Medicine Critical Care Medicine; Emergency Provider Emergency Medicine; PCP Internal Medicine; Referring Provider Internal Medicine; Visit Provider Internal Medicine Gastroenterology | DX: K21.9 Gastro-esophageal reflux disease without esophagitis (principal); K59.09 Other constipation; R13.10 Dysphagia, unspecified; R11.2 Nausea with vomiting, unspecified; K92.2 Gastrointestinal hemorrhage, unspecified | CPT/HCPCS: 99499 ==

== ENCOUNTER → 2023-08-19 10:55 | Outpatient (BNV) | payer OTHER, SELFPAY | PROVIDERS: Admitting Provider Internal Medicine Critical Care Medicine; Emergency Provider Emergency Medicine; PCP Internal Medicine; Referring Provider Internal Medicine; Visit Provider Nurse Practitioner Psychiatric/Mental Health | DX: F33.3 Major depressive disorder, recurrent, severe with psychotic symptoms (principal); F14.10 Cocaine abuse, uncomplicated; F10.90 Alcohol use, unspecified, uncomplicated; F11.90 Opioid use, unspecified, uncomplicated; T50.904A Poisoning by unspecified drugs, medicaments and biological substances, undetermined, initial encounter | CPT/HCPCS: 99231; 99499 ==

== ENCOUNTER → 2023-08-19 10:55 | Outpatient (BNV) | payer MEDICAID, SELFPAY | PROVIDERS: Admitting Provider Internal Medicine Critical Care Medicine; Emergency Provider Emergency Medicine; PCP Internal Medicine; Referring Provider Internal Medicine; Visit Provider Internal Medicine | DX: G93.41 Metabolic encephalopathy (principal); R50.9 Fever, unspecified | CPT/HCPCS: 99222 ==

== ENCOUNTER → 2023-08-19 10:55 | Outpatient (BNV) | payer MEDICAID, SELFPAY | PROVIDERS: Admitting Provider Internal Medicine Critical Care Medicine; Emergency Provider Emergency Medicine; PCP Internal Medicine; Referring Provider Internal Medicine; Visit Provider Surgery | DX: J69.0 Pneumonitis due to inhalation of food and vomit (principal) | CPT/HCPCS: 99222 ==

== ENCOUNTER → 2023-08-19 10:55 | Outpatient (BNV) | payer MEDICAID, SELFPAY | PROVIDERS: Admitting Provider Internal Medicine Critical Care Medicine; Emergency Provider Emergency Medicine; Visit Provider Internal Medicine Critical Care Medicine | DX: J69.0 Pneumonitis due to inhalation of food and vomit (principal); J96.01 Acute respiratory failure with hypoxia; F19.10 Other psychoactive substance abuse, uncomplicated; G93.41 Metabolic encephalopathy; N17.9 Acute kidney failure, unspecified; M62.82 Rhabdomyolysis; J18.9 Pneumonia, unspecified organism | CPT/HCPCS: 99232; 99291; 99292 ==

== ENCOUNTER → 2023-08-19 10:55 | Outpatient (BNV) | payer MEDICAID, SELFPAY | PROVIDERS: Admitting Provider Internal Medicine Critical Care Medicine; Emergency Provider Emergency Medicine; PCP Internal Medicine; Referring Provider Internal Medicine; Visit Provider Internal Medicine | DX: G93.1 Anoxic brain damage, not elsewhere classified (principal); N17.0 Acute kidney failure with tubular necrosis | CPT/HCPCS: 99232; 99233; 99239; 99499 ==